=== PATIENT | female | born 1970 | race Two or more races ===

== ENCOUNTER → 2019-12-30 14:09 | Outpatient (BNVA) | payer MEDICAID, SELFPAY | PROVIDERS: PCP Family Medicine; Visit Provider Hospitalist | DX: J44.9 Chronic obstructive pulmonary disease, unspecified (principal); J96.10 Chronic respiratory failure, unspecified whether with hypoxia or hypercapnia; G47.33 Obstructive sleep apnea (adult) (pediatric); D80.1 Nonfamilial hypogammaglobulinemia; Z79.52 Long term (current) use of systemic steroids | CPT/HCPCS: 99214 ==

== ENCOUNTER → 2020-01-04 14:10 | Outpatient (BNVA) | payer MEDICAID, SELFPAY | PROVIDERS: PCP Family Medicine; Referring Provider Family Medicine; Visit Provider Hospitalist | DX: J44.1 Chronic obstructive pulmonary disease with (acute) exacerbation (principal); J96.11 Chronic respiratory failure with hypoxia; J96.12 Chronic respiratory failure with hypercapnia; D80.1 Nonfamilial hypogammaglobulinemia; R00.0 Tachycardia, unspecified; Z79.52 Long term (current) use of systemic steroids | CPT/HCPCS: 99215 ==

== ENCOUNTER 2020-01-05 08:12 | Outpatient (REF) | payer MEDICAID, SELFPAY ==
--- NOTE | 2020-01-05 | US_ITS ---
EXAMINATION: US COMPLETE ABDOMEN WITH LIVER ELASTOGRAPHY CLINICAL INFORMATION: Chronic hepatitis C. COMPARISON: None. TECHNIQUE: Real-time imaging of the abdominal viscera. Noninvasive ultrasound liver fibrosis assessment is performed using Laney ElastPQ point quantification shear wave elastography (pSWE) with a 5 MHz transducer. Multiple elastography samples are obtained. FINDINGS: PANCREAS: Partially visualized pancreatic head and the body appear homogeneous in echotexture. The tail is obscured by overlying gas. ABDOMINAL AORTA: The proximal and distal aortic segments are normal in caliber. INFERIOR VENA CAVA: Visualized portions are normal. LIVER: The liver demonstrates normal size, contour and increased echogenicity. No focal lesion or intrahepatic biliary duct dilatation. The right lobe measures 19.4 cm in length. The left lobe measures 12.1 cm in length. There is hepatopedal flow seen in the portal vein on Doppler exam. Echogenic areas seen in liver likely vascular calcification. Shear wave elastography provides a median stiffness of 1.33 m/s (reference: normal median stiffness is 0.81 - 1.22 m/s). The IQR/median stiffness to assess sampling precision is 0.30 (reference: optimal IQR/median stiffness is under 0.3). GALLBLADDER: There are no echogenic gallstones or wall thickening. Small echogenic areas seen along the inner gallbladder wall without shadowing suggestive of adenomyomatosis. COMMON BILE DUCT: Normal in caliber measuring 0.5 cm in diameter. RIGHT KIDNEY: Normal. No hydronephrosis. No renal calculi or focal parenchymal lesions. The kidney measures 12.1 cm in maximum dimension. LEFT KIDNEY: Normal. No hydronephrosis. No renal calculi or focal parenchymal lesions. The kidney measures 12.8 cm in maximum dimension. SPLEEN: Normal. The spleen measures 11.2 cm in maximum dimension. FREE FLUID: None. IMPRESSION: 1. Hepatic steatosis without focal lesion. No focal lesion seen. 2. Adenomyomatosis in the gallbladder. 3. Elastography: Normal to mild fibrosis
--- NOTE | 2020-01-05 09:04 | XR_ITS ---
EXAMINATION: XR CHEST CLINICAL INFORMATION: COPD COMPARISON: Chest radiographs 11/24/2019, 08/02/2019, 06/15/2019; CT chest 07/08/2019 TECHNIQUE: 2 views of the chest were obtained. FINDINGS: There is mild coarsening bronchiolar markings. There is no airspace consolidation or groundglass opacity. No hyperinflation. The costophrenic sulci are clear. The heart is normal in size. The hilar and mediastinal contours are normal. Again, there are multiple bilateral healed rib fractures. No significant changes from prior studies. IMPRESSION: No significant changes from prior studies.
--- NOTE | 2020-01-05 10:03 | ECG_ITS ---
Test Reason : SOB Blood Pressure : / mmHG Vent. Rate : 105 BPM Atrial Rate : 105 BPM P-R Int : 130 ms QRS Dur : 076 ms QT Int : 340 ms P-R-T Axes : 063 047 059 degrees QTc Int : 449 ms Sinus tachycardia RSR' or QR pattern in V1 suggests right ventricular conduction delay Borderline ECG When compared with ECG of 24-NOV-2019 21:46, No significant change was found Referred By: Allan Brito Electronically Signed By:BLANCO STUBBS MD
[2020-01-05 10:26] LABS: MANUAL DIFF FLAG NO
[2020-01-05 10:32] LABS: Basophils Absolute Auto 0.1 X10*3/uL (0.0-0.2); Basophils Percent Auto 0.4 % (0-2); Eosinophils Absolute Auto 0.1 X10*3/uL (0.0-0.4); Hematocrit 40.7 % (37-47); Hemoglobin 12.3 g/dl (12.0-16.0); Imm Gran Pct Auto 0.7 % (0.0-0.4); Lymphocytes Percent Auto 14.5 % (20-40); Mean Corpuscular HGB Conc 30.2 g/dl (31.0-35.0); Mean Corpuscular Hemoglobin 29.4 pg (27.0-33.0); Mean Corpuscular Volume 97.1 fL (80-98); Mean Platelet Volume 9.1 fL (9.4-12.3); Monocytes Absolute Auto 0.9 X10*3/uL (0.1-1.2); Monocytes Percent Auto 6.2 % (2-11); Neutrophils Absolute Auto 10.6 X10*3/uL (2.0-8.3); Neutrophils Percent Auto 77.2 % (45-73); Platelet Count 339 X10*3/uL (160-400); Red Blood Count 4.19 X10*6/uL (4.20-5.50); Red Cell Distribution Width 12.3 % (11.0-16.0); White Blood Count 13.7 X10*3/uL (4.8-10.8)
[2020-01-05 10:49] LABS: D Dimer < 200 NG/ML
[2020-01-05 11:17] LABS: Blood Urea Nitrogen 17 mg/dL (9-16); Calcium 9.8 mg/dL (8.4-10.2); Estimated Glomerular Filt Rate > 60; Glucose Random 93 mg/dL (60-115)
[2020-01-05 11:28] LABS: Anion Gap 12 (12-20); Chloride 90 mmol/L (96-108); Potassium 3.6 mmol/l (3.3-5.1); Sodium 139 mmol/L (135-145)
[2020-01-05 11:43] LABS: Erythrocyte Sedimentation Rate 26 MM/HR (0-20)
[2020-01-05 11:55] LABS: Carbon Dioxide 41 mmol/L (22-29)
[2020-01-06 07:54] LABS: Theophylline 4.3
[2020-01-06 19:12] LABS: Immunoglobulin G Subclass 1 440 mg/dL (382-929); Immunoglobulin G Subclass 2 97 mg/dL (241-700); Immunoglobulin G Subclass 3 81 mg/dL (22-178); Immunoglobulin G Subclass 4 9.6 mg/dL (4-86); Immunoglobulin G Total 652 mg/dL (600-1640)
[2020-01-07 01:51] LABS: IgA 189 mg/dL (47-310); IgG 637 mg/dL (600-1640); IgM 78 mg/dL (50-300)
[2020-01-07 06:26] LABS: Immunoglobulin E 15 kU/L (<OR=114)
== END 2020-01-05 08:13 | disposition home or self-care (01) ==
LOC: HO.US 08:12
PROVIDERS: Hospitalist; Visit Provider Family Medicine
DX: B18.2 Chronic viral hepatitis C (principal)
CPT/HCPCS: 36415; 71046; 76705; 76981; 80048; 80198; 82784; 82785; 85025; 85379; 85652; 93005

== ENCOUNTER 2020-02-22 14:04 | Outpatient (REF) | payer MEDICAID, SELFPAY ==
[2020-02-22 15:51] LABS: Basophils Absolute Auto 0.1 X10*3/uL (0.0-0.2); Basophils Percent Auto 0.3 % (0-2); Eosinophils Absolute Auto 0.1 X10*3/uL (0.0-0.4); Eosinophils Percent Auto 0.4 % (0-4); Imm Gran Abs Auto 0.09 X10*3/uL (0.00-0.03); Imm Gran Pct Auto 0.6 % (0.0-0.4); Lymphocytes Absolute Auto 0.7 X10*3/uL (1.2-4.9); Lymphocytes Percent Auto 4.9 % (20-40); MANUAL DIFF FLAG SCAN; Mean Platelet Volume 8.7 fL (9.4-12.3); Monocytes Absolute Auto 0.4 X10*3/uL (0.1-1.2); Monocytes Percent Auto 2.9 % (2-11); Neutrophils Absolute Auto 13.9 X10*3/uL (2.0-8.3); Neutrophils Percent Auto 90.9 % (45-73); Platelet Count 348 X10*3/uL (160-400); Red Blood Count 4.33 X10*6/uL (4.20-5.50); Red Cell Distribution Width 13.2 % (11.0-16.0); SCAN SMEAR FLAG 1; White Blood Count 15.2 X10*3/uL (4.8-10.8)
[2020-02-22 16:15] LABS: SLIDE REVIEW VERIFIED
[2020-02-22 16:48] LABS: Erythrocyte Sedimentation Rate 24 MM/HR (0-20)
[2020-02-23 07:31] LABS: SARS COV2 IgG Negative (Negative)
[2020-02-24 07:02] LABS: Immunoglobulin E 20 kU/L (<OR=114)
[2020-02-24 07:25] LABS: Theophylline 4.6
[2020-02-24 11:17] LABS: Immunoglobulin G Subclass 1 390 mg/dL (382-929); Immunoglobulin G Subclass 2 92 mg/dL (241-700); Immunoglobulin G Subclass 3 78 mg/dL (22-178); Immunoglobulin G Total 593 mg/dL (600-1640)
== END 2020-02-22 14:05 | disposition home or self-care (01) ==
LOC: HO.LAB 14:04
PROVIDERS: PCP Family Medicine; Visit Provider Hospitalist
DX: J44.9 Chronic obstructive pulmonary disease, unspecified (principal); D80.1 Nonfamilial hypogammaglobulinemia; J96.10 Chronic respiratory failure, unspecified whether with hypoxia or hypercapnia; F17.210 Nicotine dependence, cigarettes, uncomplicated; Z79.899 Other long term (current) drug therapy; Z79.52 Long term (current) use of systemic steroids
CPT/HCPCS: 36415; 80198; 82784; 82785; 85025; 85652; 86769; 99212

== ENCOUNTER 2020-03-13 10:01 | Outpatient (REF) | payer MEDICAID, SELFPAY ==
[2020-03-13 10:41] VITALS: O2SAT 93
[2020-03-13 10:50] LABS: Pt Ventilation O2% 2 L
[2020-03-13 10:55] LABS: Base Excess ABG 8.6; HCO3 ABG 37 mmol/l (22-26); PO2 ABG 91 mmhg (83-108); pH ABG 7.36 (7.35-7.45)
[2020-03-13 10:58] LABS: ABG PCO2 67 mmhg (32-45)
--- NOTE | 2020-03-13 17:22 | PFT_ITS ---
INDICATION: COPD. SPIROMETRY: The FEV1 to FVC 49% with an FEV1 of 0.68 L, which is 27% predicted, and an FVC of 1.4 L, which is 45% predicted. There was a significant response to bronchodilators noted. There is also very severe decrease in maximum voluntary ventilation secondary to the patient's deconditioning and also worsening dynamic inspiratory capacity. LUNG VOLUMES: With significant air trapping due to the COPD, decrease in the expiratory reserve volume secondary to an elevated BMI. The patient has a moderate diffusion impairment. COMPARISONS: Not available at this time. INTERPRETATION: There is obstructive ventilatory defect consistent with very severe COPD. The patient does have a significant response to bronchodilators noted and has severe decrease in the maximum voluntary ventilation. Lung volumes again significant for air trapping due to the COPD and a moderate diffusion impairment secondary to underlying parenchymal lung disease and/or pulmonary vascular conditions. Clinical correlation warranted. Allan Brito MD MR/MODL / [id number]
== END 2020-03-13 10:02 | disposition home or self-care (01) ==
LOC: HO.RESP 10:01
PROVIDERS: PCP Family Medicine; Visit Provider Hospitalist
DX: J96.10 Chronic respiratory failure, unspecified whether with hypoxia or hypercapnia (principal)
CPT/HCPCS: 36600; 82803; 94060; 94727; 94729

== ENCOUNTER → 2020-05-09 10:23 | Outpatient (BNVA) | payer MEDICAID, SELFPAY | PROVIDERS: PCP Family Medicine; Visit Provider Hospitalist ==

== ENCOUNTER → 2020-05-29 13:11 | Outpatient (BNVA) | payer MEDICAID, SELFPAY | PROVIDERS: PCP Family Medicine; Visit Provider Nurse Practitioner Family ==

== ENCOUNTER 2020-06-01 08:59 | Outpatient (REF) | payer MEDICAID, SELFPAY | END 2020-06-01 09:00 | disposition home or self-care (01) | LOC: HO.MDS 08:59 | PROVIDERS: Visit Provider Emergency Medicine | DX: D80.1 Nonfamilial hypogammaglobulinemia (principal); B18.2 Chronic viral hepatitis C | CPT/HCPCS: 96365; 96366 ==

== ENCOUNTER → 2020-06-19 14:05 | Outpatient (BNVA) | payer MEDICAID, SELFPAY | PROVIDERS: Visit Provider Nurse Practitioner Family ==

== ENCOUNTER → 2020-06-21 10:03 | Outpatient (BNVA) | payer MEDICAID, SELFPAY | PROVIDERS: PCP Family Medicine; Visit Provider Internal Medicine ==

== ENCOUNTER → 2020-06-23 10:30 | Outpatient (BNVA) | payer MEDICAID, SELFPAY | PROVIDERS: PCP Family Medicine; Visit Provider Hospitalist ==

== ENCOUNTER 2020-06-29 09:16 | Outpatient (REF) | payer MEDICAID, SELFPAY | END 2020-06-29 09:17 | disposition home or self-care (01) | LOC: HO.MDS 09:16 | PROVIDERS: Visit Provider Hospitalist | DX: D80.1 Nonfamilial hypogammaglobulinemia (principal) | CPT/HCPCS: 96365; 96366; J1572 ==

== ENCOUNTER 2020-07-05 07:55 | Outpatient (REF) | payer MEDICAID, SELFPAY | END 2020-07-05 07:56 | disposition home or self-care (01) | LOC: CF 07:55 | PROVIDERS: PCP Family Medicine; Visit Provider Internal Medicine | DX: Z01.810 Encounter for preprocedural cardiovascular examination (principal); R06.02 Shortness of breath; R07.2 Precordial pain; J44.9 Chronic obstructive pulmonary disease, unspecified; E11.8 Type 2 diabetes mellitus with unspecified complications; I10 Essential (primary) hypertension; E78.5 Hyperlipidemia, unspecified | CPT/HCPCS: 93005; 99202 ==

== ENCOUNTER 2020-07-06 09:58 | Outpatient (REF) | payer MEDICAID, SELFPAY ==
--- NOTE | 2020-07-06 10:00 | EMG_ITS ---
Right median and ulnar motor and sensory studies were performed. Right radial sensory study was performed and paraspinal muscles were tested with a needle. IMPRESSION: 1. 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 2. Underlying axonal sensory motor peripheral neuropathy. MD DAVID Lizama/CELESTE / [id number]
== END 2020-07-06 09:59 | disposition home or self-care (01) ==
LOC: HO.NEURO 09:58
PROVIDERS: PCP Family Medicine; Visit Provider Family Medicine
DX: M25.531 Pain in right wrist (principal); M25.532 Pain in left wrist; R20.0 Anesthesia of skin
CPT/HCPCS: 95886; 95909

== ENCOUNTER 2020-07-10 09:26 | Outpatient (REF) | payer MEDICAID, SELFPAY ==
--- NOTE | ~2020-07-10 | US_ITS ---
EXAMINATION: US COMPLETE ABDOMEN WITH LIVER ELASTOGRAPHY CLINICAL INFORMATION: Chronic viral hepatitis C. COMPARISON: 01/05/[address] abdomen 07/08/2019. TECHNIQUE: Real-time imaging of the abdominal viscera. Noninvasive ultrasound liver fibrosis assessment is performed using Laney ElastPQ point quantification shear wave elastography (pSWE) with a C5-2 MHz transducer. Multiple elastography samples are obtained. FINDINGS: PANCREAS: Obscured by bowel gas. ABDOMINAL AORTA: The visualized proximal, middle, and distal aortic segments are normal in caliber. INFERIOR VENA CAVA: Visualized portions are normal. LIVER: Diffuse increased hepatic parenchymal echogenicity. No focal lesion or intrahepatic biliary duct dilatation. The right lobe measures 19.8 cm in length. The left lobe measures 13.5 cm in length. Portal flow is hepatopedal Shear wave liver elastography median stiffness is 0.89 m/s (reference: normal median stiffness is 1.3 m/s or less). IQR/median stiffness to assess sampling precision is 0.3 (reference: good quality data set is IQR/median stiffness of 0.15 or less). GALLBLADDER: Ringdown artifact in the fundus suggesting adenomyomatosis. No calculi. No wall thickening or pericholecystic fluid. COMMON BILE DUCT: Normal in caliber measuring 0.4 cm in diameter. RIGHT KIDNEY: Normal. No hydronephrosis. No renal calculi or focal parenchymal lesions. The kidney measures 13 cm in maximum dimension. LEFT KIDNEY: Normal. No hydronephrosis. No renal calculi or focal parenchymal lesions. The kidney measures 13.5 cm in maximum dimension. SPLEEN: Normal. The spleen measures 10.2 cm in maximum dimension. FREE FLUID: None. US/US abdomen comp w elastography IMPRESSION: 1. Hepatomegaly. Increased hepatic parenchymal echogenicity, correlating with the clinical history of chronic viral hepatitis. No focal lesions demonstrated. 2. Liver elastography: Liver stiffness measuring 0.89 m/s, suggesting high probability of being normal as per the guidelines. Of note, the sampling precision is 0.3, suboptimal. Short-term follow-up ultrasound for reassessment as clinically warranted. 3. Pancreas obscured by bowel gas. 4. Findings suggest adenomyomatosis in the gallbladder fundus. REFERENCE: Society of Radiologists in Ultrasound Liver Stiffness Thresholds (2019): LIVER STIFFNESS THRESHOLDS: *Liver Stiffness equal or less than 1.3 m/s: High probability of being normal. *Liver Stiffness less than 1.7 m/s: In the absence of other known clinical signs, rules out compensated advanced chronic liver disease. *Liver Stiffness 1.7-2.1 m/s: Suggestive of compensated advanced chronic liver disease but need further test for confirmation. *Liver Stiffness over 2.1 m/s: Rules in compensated advanced chronic liver disease. *Liver Stiffness over 2.4 m/s: Suggestive of clinically significant portal hypertension. QUALITY OF DATA SET: *IQR/Median value equal or less than 0.15 implies a quality data set. *IQR/Median value over 0.15 implies a poor quality data set. SIGNIFICANT CHANGE FROM PRIOR EXAM: Significant change if liver stiffness measurement is 10% or greater from prior exam. OTHER CONSIDERATIONS: The stage of liver fibrosis may be overestimated in the setting of acute hepatitis, liver inflammation, elevated liver function tests, hepatic vascular congestion, obstructive cholestasis, non-fasting state, and infiltrative diseases such as amyloidosis and lymphoma. In some patients with NAFLD, the liver stiffness thresholds for compensated advanced chronic liver disease may be lower. In causes other than viral hepatitis and NAFLD, liver stiffness thresholds are not well established.
== END 2020-07-10 09:27 | disposition home or self-care (01) ==
LOC: HO.US 09:26
PROVIDERS: Visit Provider Emergency Medicine
DX: B18.2 Chronic viral hepatitis C (principal)
CPT/HCPCS: 76705; 76981

== ENCOUNTER 2020-07-20 12:54 | Outpatient (REF) | payer MEDICAID, SELFPAY ==
[2020-07-20 15:17] LABS: Basophils Percent Auto 0.2 % (0-2); Hematocrit 44.3 % (37-47); Hemoglobin 13.3 g/dl (12.0-16.0); Imm Gran Pct Auto 0.6 % (0.0-0.4); Lymphocytes Absolute Auto 0.9 X10*3/uL (1.2-4.9); Lymphocytes Percent Auto 5.3 % (20-40); MANUAL DIFF FLAG SCAN; Mean Corpuscular Hemoglobin 29.8 pg (27.0-33.0); Mean Corpuscular Volume 99.3 fL (80-98); Mean Platelet Volume 9.4 fL (9.4-12.3); Monocytes Absolute Auto 0.4 X10*3/uL (0.1-1.2); Monocytes Percent Auto 2.7 % (2-11); Neutrophils Absolute Auto 14.7 X10*3/uL (2.0-8.3); Neutrophils Percent Auto 91.2 % (45-73); Platelet Count 311 X10*3/uL (160-400); Red Blood Count 4.46 X10*6/uL (4.20-5.50); Red Cell Distribution Width 12.6 % (11.0-16.0); SCAN SMEAR FLAG 1; White Blood Count 16.1 X10*3/uL (4.8-10.8)
[2020-07-20 15:27] LABS: Alanine Aminotransferase 40 U/L (0-31); Albumin Level 3.9 g/dL (3.5-5.0); Alkaline Phosphatase 60 U/L (39-117); Anion Gap 16 (12-20); Aspartate Amino Transferase 27 U/L (5-31); Bilirubin Total 0.4 mg/dL (0.0-1.0); Blood Urea Nitrogen 17 mg/dL (9-16); Calcium 10.2 mg/dL (8.4-10.2); Carbon Dioxide 39 mmol/L (22-29); Chloride 90 mmol/L (96-108); Estimated Glomerular Filt Rate > 60; Glucose Random 115 mg/dL (60-115); Sodium 140 mmol/L (135-145); Total Protein 6.8 g/dL (6.5-8.0)
[2020-07-20 15:40] LABS: SLIDE REVIEW VERIFIED
[2020-07-20 16:06] LABS: Erythrocyte Sedimentation Rate 21 MM/HR (0-20)
[2020-07-21 06:32] LABS: Immunoglobulin E 16 kU/L (<OR=114)
[2020-07-21 07:02] LABS: Theophylline 11.2
[2020-07-21 15:57] LABS: Immunoglobulin G Subclass 1 517 mg/dL (382-929); Immunoglobulin G Subclass 2 199 mg/dL (241-700); Immunoglobulin G Subclass 3 96 mg/dL (22-178); Immunoglobulin G Subclass 4 16.2 mg/dL (4-86); Immunoglobulin G Total 809 mg/dL (600-1640)
== END 2020-07-20 12:55 | disposition home or self-care (01) ==
LOC: HO.LAB 12:54
PROVIDERS: Hospitalist; Visit Provider Nurse Practitioner Family
DX: K59.00 Constipation, unspecified (principal); D80.1 Nonfamilial hypogammaglobulinemia; J44.9 Chronic obstructive pulmonary disease, unspecified; F17.210 Nicotine dependence, cigarettes, uncomplicated; Z99.81 Dependence on supplemental oxygen; Z80.0 Family history of malignant neoplasm of digestive organs; Z12.11 Encounter for screening for malignant neoplasm of colon
CPT/HCPCS: 36415; 80053; 80198; 82784; 82785; 85025; 85652; 99212

== ENCOUNTER 2020-07-27 09:26 | Outpatient (REF) | payer MEDICAID, SELFPAY | END 2020-07-27 09:27 | disposition home or self-care (01) | LOC: HO.MDS 09:26 | PROVIDERS: Visit Provider Hospitalist | DX: D80.1 Nonfamilial hypogammaglobulinemia (principal) | CPT/HCPCS: 96365; 96366; J1569 ==

== ENCOUNTER 2020-08-04 | Outpatient (REF) | payer MEDICAID, SELFPAY ==
[2020-08-07 12:52] LABS: FIT Int Ctl YES; FIT1 NEGATIVE (NEGATIVE); FIT2 NEGATIVE (NEGATIVE)
== END 2020-08-04 00:01 | disposition home or self-care (01) ==
LOC: HO.LNP
PROVIDERS: Visit Provider Nurse Practitioner Family
DX: Z80.0 Family history of malignant neoplasm of digestive organs (principal)
CPT/HCPCS: 82274

== ENCOUNTER → 2020-08-04 13:07 | Outpatient (BNVA) | payer MEDICAID, SELFPAY | PROVIDERS: PCP Family Medicine; Visit Provider Hospitalist ==

== ENCOUNTER 2020-08-09 10:13 | Outpatient (REF) | payer MEDICAID, SELFPAY | END 2020-08-09 10:14 | disposition home or self-care (01) | LOC: HO.LNP 10:13 | PROVIDERS: Visit Provider Hospitalist | DX: J44.9 Chronic obstructive pulmonary disease, unspecified (principal) | CPT/HCPCS: 87070; 87205 ==

== ENCOUNTER → 2020-08-21 09:47 | Outpatient (REF) | payer MEDICAID, SELFPAY ==
--- NOTE | 2020-08-21 09:50 | CA_ITS ---
Transthoracic Echocardiogram Patient (Last, First, Middle): Anju Tanner I Gender: Female Date of : 1970 Age: 50 Procedure Date: 08/21/2020 Procedure Type: Transthoracic Echocardiogram Location: OP Height: 154.94 cm Weight: 97.52 kg BSA: 1.95 m2 Heart Rate: bpm BP: 140 / 86 mmHg Molder Operator: LINH Referring MD: Royce Molina MD Forest Economist: Keyur Vivas MD Symptoms: R06.02 - Shortness of breath Study Quality: Technically Difficult ECG Rhythm: Sinus Conclusions: - Essentially normal study Findings Left Ventricle Normal left ventricular cavity size. The left ventricular systolic function is normal. The visually estimated ejection fraction is between 60-65%. Regional wall motion abnormalities can not be excluded due to suboptimal endocardial definition. Spectral Doppler is indicative of a normal filling pattern. Right Ventricle Normal right ventricular cavity size and systolic function. Atria The left atrium is normal in size. There is lipomatous hypertrophy of the interatrial septum. There is no evidence of interatrial shunt. The right atrium is normal in size. Aortic Valve The aortic valve was not well visualized. There is no aortic valve stenosis. There is no aortic valve regurgitation. Mitral Valve Likely normal mitral valve structure and function. There is trace mitral valve regurgitation. There is no mitral valve stenosis. Pulmonic Valve The pulmonic valve was not well visualized. Tricuspid Valve Likely normal tricuspid valve structure and function. There is mild tricuspid valve regurgitation. The right ventricular systolic pressure is normal. The right ventricular systolic pressure is 36 mmHg. Great Vessels The aorta was not well visualized. The pulmonary artery was not well visualized. Venous The inferior vena cava is normal in size and collapses greater than 50% with inspiration. Pericardium/Pleural There is no evidence of pericardial effusion. Prior Study Comparison No significant change compared to prior study dated: 03/22/2019. Recommendations, Care & Conclusions Recommend contrast in the future to improve endocardial definition. Measurements 2D Linear Measurements Ao Root: 2.30 2.1-3.5 cm LVOT Diam: 2.00 3.0+(-)1.3 cm Mitral Valve MV Pk E: 0.89 MV PK A: 0.87 MV Decel Time: 166.00 E/A: 1.00 E'Lateral: 12.00 E'Medial: 8.49 E/E' Med: 10.50 E/E' Lat: 7.40 PHT: 49.00 MVA PHT: 4.49 Decel [place]: 5.38 Aortic Valve AoV Pk Andrea: 1.71 AoV Mn Andrea: 0.95 AoV VTI: 0.34 AoV Pk Grad: 12.00 Aov Mn Grad: 5.00 TASNEEM Cont.VTI: 2.15 LVOT LVOT Pk Andrea: 1.21 LVOT Mn Andrea: 0.79 LVOT VTI: 0.23 LVOT Pk Grad: 6.00 LVOT Mn Grad: 3.00 LVOT Diam: 2.00 LVOT Area: 3.14 Diastolic Function MV Pk E: 0.89 MV Pk A: 0.87 E/A: 1.00 E'Medial: 8.49 E/E' Med: 10.50 E' Laterial: 12.00 E/E' Lat: 7.40 Tricuspid Valve TR Pk Andrea: 2.87 TR Pk Grad: 33.00 RA Press: 3.00 RVSP: 36.00 Great Vessels Aorta Ao Root-2D: 2.30 2.0-3.7 cm Pulmonary Valve PV Pk Andrea: 1.33 Peak PV Grad: 7.00 Updated in Other Vendor System with Status of Final Keyur Vivas MD electronically signed on 08/21/2020 5:48:21 PM with status of Final
== END ==
LOC: HO.CARD 09:47
PROVIDERS: Visit Provider Internal Medicine
DX: R06.02 Shortness of breath (principal)
CPT/HCPCS: 93306

== ENCOUNTER 2020-08-30 11:04 | Outpatient (REF) | payer MEDICAID, SELFPAY | END 2020-08-30 11:05 | disposition home or self-care (01) | LOC: HO.MDS 11:04 | PROVIDERS: Visit Provider Hospitalist | DX: D80.1 Nonfamilial hypogammaglobulinemia (principal) | CPT/HCPCS: 96365; 96366; J1569 ==

== ENCOUNTER → 2020-09-20 11:36 | Outpatient (BNVA) | payer MEDICAID, SELFPAY | PROVIDERS: Visit Provider Hospitalist | DX: J44.1 Chronic obstructive pulmonary disease with (acute) exacerbation (principal); J44.9 Chronic obstructive pulmonary disease, unspecified; J96.10 Chronic respiratory failure, unspecified whether with hypoxia or hypercapnia; D80.1 Nonfamilial hypogammaglobulinemia; E11.9 Type 2 diabetes mellitus without complications; I10 Essential (primary) hypertension; E78.5 Hyperlipidemia, unspecified; F17.210 Nicotine dependence, cigarettes, uncomplicated; Z79.52 Long term (current) use of systemic steroids; Z79.84 Long term (current) use of oral hypoglycemic drugs; Z79.899 Other long term (current) drug therapy | CPT/HCPCS: 96372; 99212; J2930 ==

== ENCOUNTER 2020-10-05 09:55 | Outpatient (REF) | payer MEDICAID, SELFPAY | END 2020-10-05 09:56 | disposition home or self-care (01) | LOC: HO.MDS 09:55 | PROVIDERS: Visit Provider Hospitalist | DX: D80.1 Nonfamilial hypogammaglobulinemia (principal) | CPT/HCPCS: 96365; 96366; J1569 ==

== ENCOUNTER 2020-10-13 19:33 | Inpatient (IN) | payer MEDICAID, SELFPAY ==
--- NOTE | ~2020-10-13 | XR_ITS ---
EXAMINATION: XR CHEST CLINICAL INFORMATION: Chest pain. COMPARISON: Chest done on 01/05/2020. TECHNIQUE: Frontal view of the chest was obtained. FINDINGS: Multiple bilateral healing rib fractures are reidentified. Both lung matthews appear symmetrically expanded and are clear. The cardiac mediastinal silhouette is within normal limit. No evidence of any pleural effusion or pneumothorax. The visualized upper abdomen is unremarkable. Overall, no significant change since 01/05/2020 XR/XR chest 1V IMPRESSION: No radiographic evidence of acute cardiopulmonary disease, appear unchanged since 01/05/2020.
--- NOTE | ~2020-10-13 | CT_ITS ---
EXAMINATION: CT ANGIOGRAM OF THE CHEST WITH AND WITHOUT CONTRAST (CT PULMONARY ANGIOGRAM FOR PE) CLINICAL INFORMATION: Reason for Exam Shortness of breath, chest pain COMPARISON: 07/08/2019 TECHNIQUE: Prior to contrast administration, noncontrast localization images were obtained. Subsequently, multidetector volumetric imaging was performed from the thoracic inlet to below the diaphragms following the administration of 80 mL Omnipaque 350 intravenous contrast. No contrast reaction reported Sagittal, coronal, and MIP oblique sagittal reformatted images were obtained on the CT workstation, uploaded to PACS, and reviewed. This CT examination was performed using dose optimization techniques as appropriate, variously including the following: *Automated exposure control *Adjustment of mA and/or kV according to patient size (this includes techniques or standardized protocols for targeted exams where dose is matched to indication/reason for exam; i.e. extremities or head) *Use of iterative reconstruction technique Total exam dose-length product 565 mGy-cm FINDINGS: QUALITY OF STUDY/CONTRAST BOLUS: Satisfactory. PULMONARY ARTERIES: No central or segmental pulmonary emboli. THORACIC AORTA: No aneurysm or dissection. LUNG: No parenchymal consolidation, pneumonitis or pneumothorax. Mild upper lobe predominant centrilobular emphysema. Mild diffuse bronchial wall thickening without bronchiectasis. There are a few scattered pneumatoceles, postinfectious/inflammatory in nature. No suspicious pulmonary nodules. PLEURA: No pleural effusion or pneumothorax. MEDIASTINUM: Normal heart size. No pericardial effusion. No hilar or mediastinal lymphadenopathy. No evidence of septal bowing or right heart strain. No reflux of contrast into the hepatic veins to suggest elevated right heart pressures. CHEST WALL/AXILLA: No axillary or internal mammary lymphadenopathy. OSSEOUS STRUCTURES: No acute or suspicious osseous abnormality. UPPER ABDOMEN: Healed bilateral rib fractures. No acute or suspicious osseous abnormalities. CT/CT angio chest PE protocol IMPRESSION: * No pulmonary embolism. * No aortic aneurysm or dissection. * No pneumonitis, parenchymal consolidation or pneumothorax. * Mild emphysema and chronic bronchitis. VTE: negative
[2020-10-13 19:41] VITALS: BP 137/70; PULSE 94; RESP 16; TEMP 37.1; O2SAT 95; BMI 40.0
--- NOTE | 2020-10-13 19:48 | ECG_ITS ---
Test Reason : CHEST PAIN Blood Pressure : / mmHG Vent. Rate : 084 BPM Atrial Rate : 084 BPM P-R Int : 136 ms QRS Dur : 074 ms QT Int : 372 ms P-R-T Axes : 063 041 046 degrees QTc Int : 439 ms Normal sinus rhythm Normal ECG When compared with ECG of 05-JAN-2020 10:16, No significant change was found Referred By: Generic ED Physician Electronically Signed By:RONALD SCHAFER
[2020-10-13 20:07] LABS: MANUAL DIFF FLAG NO
[2020-10-13 20:09] LABS: Basophils Percent Auto 0.2 % (0-2); Eosinophils Percent Auto 0.1 % (0-4); Hematocrit 39.7 % (37-47); Hemoglobin 12.3 g/dl (12.0-16.0); Imm Gran Abs Auto 0.08 X10*3/uL (0.00-0.03); Imm Gran Pct Auto 0.6 % (0.0-0.4); Lymphocytes Absolute Auto 1.1 X10*3/uL (1.2-4.9); Lymphocytes Percent Auto 8.2 % (20-40); Mean Corpuscular Hemoglobin 30.3 pg (27.0-33.0); Mean Corpuscular Volume 97.8 fL (80-98); Monocytes Absolute Auto 0.6 X10*3/uL (0.1-1.2); Monocytes Percent Auto 4.6 % (2-11); Neutrophils Absolute Auto 11.6 X10*3/uL (2.0-8.3); Neutrophils Percent Auto 86.3 % (45-73); Platelet Count 291 X10*3/uL (160-400); Red Blood Count 4.06 X10*6/uL (4.20-5.50); Red Cell Distribution Width 13.2 % (11.0-16.0); White Blood Count 13.5 X10*3/uL (4.8-10.8)
[2020-10-13 20:42] LABS: Anion Gap 16 (12-20); Blood Urea Nitrogen 16 mg/dL (9-16); Calcium 10.1 mg/dL (8.4-10.2); Carbon Dioxide 39 mmol/L (22-29); Chloride 93 mmol/L (96-108); Creatinine Clr Calc Pharmacy 96.4; Estimated Glomerular Filt Rate > 60; Glucose Random 249 mg/dL (60-115); Potassium 4.7 mmol/L (3.3-5.1); Sodium 143 mmol/L (135-145)
[2020-10-13 20:44] LABS: Troponin-I High Sensitivity 6.5 ng/L (<3.5-17.0)
[2020-10-13 20:57] LABS: COVID-19 Test Negative (Negative)
--- NOTE | 2020-10-13 21:25 | ED.CHESTPAIN ---
HPI - Chest Pain General Chief Complaint: Chest Pain Stated Complaint: cpd sob Time Seen by Provider: 10/13/20 21:25 Source: patient Mode of arrival: ambulatory History of Present Illness HPI narrative: 50-year-old female who presents with shortness of breath for 3 days has a history of COPD on home oxygen and states that she has also experienced some chest discomfort especially with both inspiratory and expiratory breathing, otherwise denies dizziness/headache/nausea/diaphoresis and patient also endorses that on pushing on the left anterior chest that this also increases her pain. Otherwise, she denies any fever, chills and states she has a cough at baseline but denies any increase in sputum production, denies any GI or symptoms. Related Data Home Medications Medication Instructions Recorded Confirmed albuterol sulfate 90 mcg/actuation 2 puff INHALATION Q6H PRN 12/30/19 09/20/20 aerosol inhaler (ProAir HFA) clonazepam 1 mg tablet 1 mg PO BID 12/30/19 09/20/20 diltiazem HCl 300 mg capsule,24 300 mg PO DAILY 12/30/19 09/20/20 hr,extended release lamotrigine 150 mg tablet 75 mg PO BID 12/30/19 09/20/20 (Lamictal) lisinopril 40 mg tablet 40 mg PO DAILY 12/30/19 09/20/20 loratadine 10 mg tablet (Claritin) 10 mg PO DAILY 12/30/19 09/20/20 metformin 500 mg tablet 500 mg PO BID 12/30/19 09/20/20 methadone 10 mg tablet 10 mg PO DAILY 12/30/19 09/20/20 montelukast 10 mg tablet 10 mg PO DAILY 12/30/19 09/20/20 pantoprazole 40 mg tablet,delayed 40 mg PO DAILY 12/30/19 09/20/20 release roflumilast 500 mcg tablet 500 mcg PO DAILY 12/30/19 09/20/20 (Daliresp) zolpidem 10 mg tablet (Ambien) 10 mg PO BEDTIME PRN 12/30/19 09/20/20 Previous Rx's Medication Instructions Recorded ipratropium 0.5 mg-albuterol 3 mg 3 ml INHALATION Q4H PRN #540 ml 02/29/20 (2.5 mg base)/3 mL nebulization soln dextromethorphan 5 mg-guaifenesin 20 ml PO Q4-6H PRN 14 Days #300 ml 03/20/20 50 mg/5 mL oral liquid (Robitussin Cough-Chest Congestion DM) tiotropium bromide 18 mcg capsule 1 cap INHALATION DAILY #30 inh 05/11/20 with inhalation device (Spiriva with HandiHaler) docusate sodium 100 mg capsule 100 mg PO DAILY #30 cap 05/29/20 methylcellulose (laxative) 500 mg 500 mg PO DAILY #30 tab 05/29/20 tablet (Citrucel) prednisone 10 mg tablet 10 mg PO BID 30 Days #60 tab 06/14/20 immune glob,gamma(IgG) 10 40 g IV Q4W #2 ea 06/16/20 ciwd-dia-tyhs-IgA 0 to 50 mcg/mL IV solution sennosides 8.6 mg tablet (Natural 8.6 mg PO BEDTIME PRN #30 tab 06/19/20 Senna Laxative) doxycycline hyclate 100 mg capsule 100 mg PO BID 14 Days #28 cap 06/23/20 amoxicillin 875 mg-potassium 1 tab PO BID 10 Days #20 tab 07/21/20 clavulanate 125 mg tablet (Augmentin) levofloxacin 500 mg tablet 500 mg PO DAILY 10 Days #10 tab 08/04/20 amoxicillin 875 mg-potassium 1 tab PO BID 21 Days #42 tab 09/20/20 clavulanate 125 mg tablet (Augmentin) arformoterol 15 mcg/2 mL solution 2 ml INHALATION Q12H 30 Days #120 09/20/20 for nebulization (Brovana) ml budesonide 0.5 mg/2 mL suspension 0.5 mg INHALATION BID #120 ml 09/20/20 for nebulization Allergies Allergy/AdvReac Type Severity Reaction Status Date / Time No Known Allergies Allergy Verified 09/20/20 11:41 [No Known Allergies*] Review of Systems Review of Systems: Pertinent positives and negatives as stated in HPI 10 point review of systems is otherwise negative. [facility] Past Medical History Source: nursing notes reviewed Medical History Asthma-COPD overlap syndrome Chronic respiratory failure COPD exacerbation Essential hypertension Hyperlipidemia, unspecified Hypogammaglobulinemia Tachycardia Tobacco dependence Type 2 diabetes mellitus with unspecified complications Surgical History H/O tubal ligation Family History Family History Father Diabetes Other Asthma Social History Social History Household Members: Significant Other Alcohol intake: never Years Smoked: 20 years Advance Directives: No Advance Directives Information Provided: Yes Patient : No Current occupational status: disabled Physical Exam Vital Signs: Vital Signs: Last Vital Signs Temp 98.8 F 10/13/20 19:41 Pulse 86 10/13/20 22:26 Resp 16 10/13/20 19:41 BP 137/70 10/13/20 19:41 Pulse Ox 95 10/13/20 19:41 Oxygen Flow Rate 2 10/13/20 19:41 Body Mass Index 40.0 VITAL SIGNS: Reviewed. GENERAL: Obese, chronically ill, mild distress. HEAD: Normocephalic/atraumatic EYES: PERRLA, EOMI OROPHARYNX: no oral lesions noted, posterior pharynx clear NECK: Supple, no adenopathy LUNGS: Decreased breath sounds bilaterally with noted coarse rhonchi and expiratory wheeze SpO2<95> on home oxygen nasal cannula CARDIOVASCULAR: Regular rate and rhythm without noted murmurs, no JVD or lower extremity edema. ABDOMEN: Obese, Soft, non-tender, non-distended with bowel sounds. MUSCULOSKELETAL: No tenderness, deformities, or effusions noted on gross inspection. EXTREMITIES: No cyanosis, clubbing or edema. SKIN: Inspection of the skin reveals no rashes NEUROLOGIC: Alert and oriented x 4. Strength and sensation to light touch were grossly intact x 4. Course Course Course Narrative: 2247: 50-year-old female with history and clinical presentation suggestive of COPD exacerbation with expiratory wheeze. Patient will receive nebulized treatments, steroids, lactic acid, blood cultures, antibiotics. On re-evaluation review of remaining investigations patient is began to feel better, oxygenation has improved, and this case was discussed with inpatient hospitalist for admission. MDM - Chest Pain Lab Data Result diagrams: 10/13/20 20:03 10/13/20 20:03 Labs: Lab Results 10/13/20 10/13/20 10/13/20 Range/Units 20:03 20:03 20:03 WBC 13.5 H (4.8-10.8) X10*3/uL RBC 4.06 L (4.20-5.50) X10*6/uL Hgb 12.3 (12.0-16.0) g/dl Hct 39.7 (37-47) % MCV 97.8 (80-98) fL MCH 30.3 (27.0-33.0) pg MCHC 31.0 (31.0-35.0) g/dl RDW 13.2 (11.0-16.0) % Plt Count 291 (160-400) X10*3/uL MPV 9.0 L (9.4-12.3) fL Immature Gran % (Auto) 0.6 H (0.0-0.4) % Neut % (Auto) 86.3 H (45-73) % Lymph % (Auto) 8.2 L (20-40) % Phillips % (Auto) 4.6 (2-11) % Eos % (Auto) 0.1 (0-4) % Baso % (Auto) 0.2 (0-2) % Lymph # (Auto) 1.1 L (1.2-4.9) X10*3/uL Phillips # (Auto) 0.6 (0.1-1.2) X10*3/uL Eos # (Auto) 0.0 (0.0-0.4) X10*3/uL Baso # (Auto) 0.0 (0.0-0.2) X10*3/uL Abs Immat Gran (auto) 0.08 H (0.00-0.03) X10*3/uL Absolute Neuts (auto) 11.6 H (2.0-8.3) X10*3/uL Absolute Nucleated RBC 0.000 (0.0-0.012) X10*3/uL Nucleated RBC % (auto) 0.0 (0.0-0.2) /100WBC VBG pH (7.32-7.43) VBG pCO2 mmHg VBG pO2 mmHg VBG HCO3 (22-26) mmol/L VBG O2 Saturation % VBG Base Excess mmol/L Sodium 143 (135-145) mmol/L Potassium 4.7 (3.3-5.1) mmol/L Chloride 93 L (96-108) mmol/L Carbon Dioxide 39 H (22-29) mmol/L Anion Gap 16 (12-20) BUN 16 (9-16) mg/dL Creatinine 0.74 (0.5-1.4) mg/dL Estim Creat Clear Calc 96.4 Estimated GFR > 60 POC Glucose (60-115) mg/dL Random Glucose 249 H D (60-115) mg/dL Calcium 10.1 (8.4-10.2) mg/dL Troponin I High Sens 6.5 (<3.5-17.0) ng/L COVID-19 ([facility]) (Negative) COVID-19 Clin Com 10/13/20 10/13/20 10/13/20 Range/Units 20:38 22:46 22:47 WBC (4.8-10.8) X10*3/uL RBC (4.20-5.50) X10*6/uL Hgb (12.0-16.0) g/dl Hct (37-47) % MCV (80-98) fL MCH (27.0-33.0) pg MCHC (31.0-35.0) g/dl RDW (11.0-16.0) % Plt Count (160-400) X10*3/uL MPV (9.4-12.3) fL Immature Gran % (Auto) (0.0-0.4) % Neut % (Auto) (45-73) % Lymph % (Auto) (20-40) % Phillips % (Auto) (2-11) % Eos % (Auto) (0-4) % Baso % (Auto) (0-2) % Lymph # (Auto) (1.2-4.9) X10*3/uL Phillips # (Auto) (0.1-1.2) X10*3/uL Eos # (Auto) (0.0-0.4) X10*3/uL Baso # (Auto) (0.0-0.2) X10*3/uL Abs Immat Gran (auto) (0.00-0.03) X10*3/uL Absolute Neuts (auto) (2.0-8.3) X10*3/uL Absolute Nucleated RBC (0.0-0.012) X10*3/uL Nucleated RBC % (auto) (0.0-0.2) /100WBC VBG pH 7.33 (7.32-7.43) VBG pCO2 103 mmHg VBG pO2 73 mmHg VBG HCO3 55 H (22-26) mmol/L VBG O2 Saturation 92.0 % VBG Base Excess 22.6 mmol/L Sodium (135-145) mmol/L Potassium (3.3-5.1) mmol/L Chloride (96-108) mmol/L Carbon Dioxide (22-29) mmol/L Anion Gap (12-20) BUN (9-16) mg/dL Creatinine (0.5-1.4) mg/dL Estim Creat Clear Calc Estimated GFR POC Glucose (60-115) mg/dL Random Glucose (60-115) mg/dL Calcium (8.4-10.2) mg/dL Troponin I High Sens 7.1 (<3.5-17.0) ng/L COVID-19 ([facility]) Negative (Negative) COVID-19 Clin Com See Note 10/13/20 Range/Units 23:16 WBC (4.8-10.8) X10*3/uL RBC (4.20-5.50) X10*6/uL Hgb (12.0-16.0) g/dl Hct (37-47) % MCV (80-98) fL MCH (27.0-33.0) pg MCHC (31.0-35.0) g/dl RDW (11.0-16.0) % Plt Count (160-400) X10*3/uL MPV (9.4-12.3) fL Immature Gran % (Auto) (0.0-0.4) % Neut % (Auto) (45-73) % Lymph % (Auto) (20-40) % Phillips % (Auto) (2-11) % Eos % (Auto) (0-4) % Baso % (Auto) (0-2) % Lymph # (Auto) (1.2-4.9) X10*3/uL Phillips # (Auto) (0.1-1.2) X10*3/uL Eos # (Auto) (0.0-0.4) X10*3/uL Baso # (Auto) (0.0-0.2) X10*3/uL Abs Immat Gran (auto) (0.00-0.03) X10*3/uL Absolute Neuts (auto) (2.0-8.3) X10*3/uL Absolute Nucleated RBC (0.0-0.012) X10*3/uL Nucleated RBC % (auto) (0.0-0.2) /100WBC VBG pH (7.32-7.43) VBG pCO2 mmHg VBG pO2 mmHg VBG HCO3 (22-26) mmol/L VBG O2 Saturation % VBG Base Excess mmol/L Sodium (135-145) mmol/L Potassium (3.3-5.1) mmol/L Chloride (96-108) mmol/L Carbon Dioxide (22-29) mmol/L Anion Gap (12-20) BUN (9-16) mg/dL Creatinine (0.5-1.4) mg/dL Estim Creat Clear Calc Estimated GFR POC Glucose 180 H (60-115) mg/dL Random Glucose (60-115) mg/dL Calcium (8.4-10.2) mg/dL Troponin I High Sens (<3.5-17.0) ng/L COVID-19 ([facility]) (Negative) COVID-19 Clin Com ECG Data ECG #1: Attestation: I personally reviewed and interpreted this ECG as follows: Prior ECG tracings: available for review (01/05/2020 no acute changes on comparison) Interpretation: Sinus rhythm with PACs, HR-86, no STEMI, CO/QRS/QTC are within normal limits. Discharge Plan Discharge Clinical Impression: COPD exacerbation Patient Disposition: Admitted As Inpatient Prescriptions: No Action ipratropium-albuterol 0.5 mg-3 mg(2.5 mg base)/3 mL solution for nebulization 3 ml inhalation Q4H PRN (Reason: shortness of breath or wheezing) Qty: 540 RF: 6 Robitussin Cough-Chest Tristan DM 5-50 mg/5 mL liquid 20 ml PO Q4-6H PRN (Reason: cough) 14 Days Qty: 300 RF: 5 tiotropium bromide [Spiriva with HandiHaler] 18 mcg capsule, w/inhalation device 1 cap inhalation DAILY Qty: 30 RF: 11 prednisone 10 mg tablet 10 mg PO BID 30 Days Qty: 60 RF: 5 immun glob L-han-focx-IgA 0-50 10 gram recon soln 40 g IV Q4W Qty: 2 RF: 12 amoxicillin-pot clavulanate [Augmentin] 875-125 mg tablet 1 tab PO BID 10 Days Qty: 20 RF: 0 docusate sodium 100 mg capsule 100 mg PO DAILY Qty: 30 RF: 3 Citrucel 500 mg tablet 500 mg PO DAILY Qty: 30 RF: 2 doxycycline hyclate 100 mg capsule 100 mg PO BID 14 Days Qty: 28 RF: 0 sennosides [Natural Senna Laxative] 8.6 mg tablet 8.6 mg PO BEDTIME PRN (Reason: constipation) Qty: 30 RF: 1 Daliresp 500 mcg tablet 500 mcg PO DAILY RF: 0 montelukast 10 mg tablet 10 mg PO DAILY RF: 0 albuterol sulfate [ProAir HFA] 90 mcg/actuation HFA aerosol inhaler 2 puff inhalation Q6H PRNRF: 0 loratadine [Claritin] 10 mg tablet 10 mg PO DAILY RF: 0 metformin 500 mg tablet 500 mg PO BID RF: 0 diltiazem HCl 300 mg capsule,extended release 24 hr 300 mg PO DAILY RF: 0 pantoprazole 40 mg tablet,delayed release (DR/EC) 40 mg PO DAILY RF: 0 lisinopril 40 mg tablet 40 mg PO DAILY RF: 0 zolpidem [Ambien] 10 mg tablet 10 mg PO BEDTIME PRNRF: 0 methadone 10 mg tablet 10 mg PO DAILY RF: 0 lamotrigine [Lamictal] 150 mg tablet 75 mg PO BID RF: 0 clonazepam 1 mg tablet 1 mg PO BID RF: 0 levofloxacin 500 mg tablet 500 mg PO DAILY 10 Days Qty: 10 RF: 0 Brovana 15 mcg/2 mL solution for nebulization 2 ml inhalation Q12H 30 Days Qty: 120 RF: 11 budesonide 0.5 mg/2 mL suspension for nebulization 0.5 mg inhalation BID Qty: 120 RF: 11 amoxicillin-pot clavulanate [Augmentin] 875-125 mg tablet 1 tab PO BID 21 Days Qty: 42 RF: 0
[2020-10-13] MEDS: Lidocaine HCl Viscous 2 % 15 ML SOLUTION 10 ML MUCOUS MEM (21:35)
[2020-10-13] MEDS: Magnesium Hydrox/Alum Hydrox 30 ML ORAL.SUSP PO (21:35)
[2020-10-13] MEDS: Albuterol Sulfate (0.083%) 2.5 MG/3 ML VIAL.NEB 5 MG INHALE (21:47)
[2020-10-13] MEDS: methylPREDNISolone Sod Succ 125 MG/2 ML VIAL IVPUSH (21:47)
[2020-10-13 21:54] VITALS: PULSE 83; O2SAT 96
[2020-10-13] MEDS: Albuterol Sulfate (0.083%) 2.5 MG/3 ML VIAL.NEB 10 MG INHALE (22:25)
[2020-10-13 22:26] VITALS: PULSE 86; O2SAT 95
--- NOTE | 2020-10-13 22:42 | PC.NURSE ---
construction equipment technician at bedside for labs.
[2020-10-13 22:53] LABS: Venous Blood Gas Refer to POC result
[2020-10-13 22:54] LABS: VBG Base Excess 22.6 mmol/L; VBG HCO3 55 mmol/L (22-26); VBG pCO2 103 mmHg; VBG pH 7.33 (7.32-7.43); VBG pO2 73 mmHg
[2020-10-13 23:17] LABS: Troponin-I High Sensitivity 7.1 ng/L (<3.5-17.0)
[2020-10-13 23:20] LABS: Glucose, Whole Blood 180 mg/dL (60-115)
[2020-10-13] MEDS: levoFLOXacin/D5W 750 MG/150 ML PIGGYBACK 100 MG IV (23:43)
[2020-10-13 23:49] LABS: Lactic Acid 1.2 mmol/L (0.5-2.0)
--- NOTE | 2020-10-13 23:52 | PC.NURSE ---
hospitalist at bedside for initial evaluation pt 02 sat 85% on 2L NC nasal cannula increased to 4L by hospitalist 02 sat now 89% on 4L NC , ok per hospitalist. per hospitalist, goal for 02 sat is >88% pt aware of plan for admission, pt has no questions or comments at this time
[2020-10-13 23:57] VITALS: PULSE 101; RESP 16; O2SAT 89
[2020-10-14] VITALS (14 sets, daily range): BP systolic 117–160; BP diastolic 56–91; PULSE 83–100; RESP 15–22; TEMP 36.1–36.4; O2SAT 89–101
[2020-10-14] MEDS: iohexoL 350 MG/ML 100 ML INFUS..BTL 65 ML IV (00:56)
--- NOTE | 2020-10-14 01:13 | PC.NURSE ---
NURSE TO NURSE REPORT GIVEN TO CONCETTA QUACH
[2020-10-14] MEDS: oxyCODONE HCl Immed Release 5 MG TABLET PO ×2 (02:28→11:37)
[2020-10-14] MEDS: methylPREDNISolone Sod Succ 40 MG/ML VIAL IVPUSH ×3 (02:29→21:09)
[2020-10-14] MEDS: Heparin Sodium,Porcine 5,000 UNIT/ML VIAL 5000 UNIT SUBCUT ×2 (02:35→13:18)
[2020-10-14] MEDS: 0.9 % Sodium Chloride Flush 3 ML SYRINGE IVFLUSH ×4 (02:36→21:10)
[2020-10-14] MEDS: Albuterol/Iprat 2.5/0.5MG 3 ML AMPUL.NEB INHALE ×5 (03:16→19:59)
[2020-10-14 06:20] LABS: Basophils Percent Auto 0.1 % (0-2); Hematocrit 39.6 % (37-47); Imm Gran Abs Auto 0.06 X10*3/uL (0.00-0.03); Imm Gran Pct Auto 0.6 % (0.0-0.4); Lymphocytes Absolute Auto 0.2 X10*3/uL (1.2-4.9); Lymphocytes Percent Auto 1.8 % (20-40); MANUAL DIFF FLAG SCAN; Mean Corpuscular HGB Conc 30.3 g/dl (31.0-35.0); Mean Corpuscular Hemoglobin 30.2 pg (27.0-33.0); Mean Corpuscular Volume 99.5 fL (80-98); Mean Platelet Volume 9.6 fL (9.4-12.3); Monocytes Absolute Auto 0.1 X10*3/uL (0.1-1.2); Monocytes Percent Auto 0.7 % (2-11); Neutrophils Absolute Auto 9.8 X10*3/uL (2.0-8.3); Neutrophils Percent Auto 96.8 % (45-73); Platelet Count 294 X10*3/uL (160-400); Red Blood Count 3.98 X10*6/uL (4.20-5.50); Red Cell Distribution Width 13.1 % (11.0-16.0); SCAN SMEAR FLAG 1; White Blood Count 10.2 X10*3/uL (4.8-10.8)
[2020-10-14 06:41] LABS: SLIDE REVIEW VERIFIED
--- NOTE | 2020-10-14 06:42 | PM.IMHP ---
History of Present Illness Date of Service: 10/13/20 Chief Complaint: Shortness of breath This is a 50-year-old female with past medical history of asthma/COPD overlap syndrome, chronic respiratory failure on 2 L of oxygen at home, essential hypertension, HLD, type 2 diabetes who presents to the hospital complaints of shortness of breath and chest pain that is exacerbated by deep inspiration and cough. Developed her symptoms about 3 days ago, she was started on IV antibiotics and steroids as patient improvement. She reports cough, sputum production, she uses 2.5 L at improvement in her symptoms, she denies any abdominal pain nausea or vomiting, no diarrhea constipation, no urinary symptoms. She denies any numbness tingling or weakness. Patient reports chronic lower extremity edema that has not changed, chronic orthopnea that has not changed, no PND. On arrival to the ED patient hemodynamically stable with no significant abnormal vitals, patient found to be hypoxic on 2 L of oxygen desatting to 85 while talking to me. Patient's O2 increased to 4 L, currently satting 89-90%. Lab significant for WBC count of hemoglobin of 12.3, labs otherwise unremarkable, pH of 7.3, CO2 of 103, Given her chest pain patient underwent CT angiogram that showed no PE, no dissection or aneurysm and no pneumonia Past medical history as below and confirmed with patient Review of Systems Review of Systems: Yes all other systems are reviewed and are negative [facility] Medical History Asthma-COPD overlap syndrome Chronic respiratory failure COPD exacerbation Essential hypertension Hyperlipidemia, unspecified Hypogammaglobulinemia Tachycardia Tobacco dependence Type 2 diabetes mellitus with unspecified complications Family History Father Diabetes Other Asthma Surgical History H/O tubal ligation Social History Household Members: Family Housing: Unknown / Unable to assess Do you presently have visiting nurse or other home services: No Alcohol intake: never Patient Tobacco Use Status: Current someday Tobacco user Years Smoked: 20 years Use of substances other than those prescribed or required for medical reasons: No Have you been hit, kicked, punched, or otherwise hurt by someone within the past year? If so, by whom?: No Do you feel safe in your current relationship?: Yes Is there a partner from a previous relationship who is making you feel unsafe now?: No Are you made to feel afraid or neglected: No Advance Directives: No Advance Directives Information Provided: Yes Do you have thoughts of harming others: None Do you have a plan to hurt others: No Plan Recently lost weight without trying: No Patient : No Current occupational status: disabled Meds Allergies Allergy/AdvReac Type Severity Reaction Status Date / Time No Known Allergies Allergy Verified 09/20/20 11:41 [No Known Allergies*] Active Medications: Current Medications Generic Name Dose Route Start Last Admin Trade Name Freq PRN Reason Stop Dose Admin Acetaminophen 650 mg 10/14/20 01:20 Acetaminophen 325 Mg Tablet PO Q6H PRN Pain, Mild (Pain Scale 1-3) Albuterol/Ipratropium 3 ml 10/14/20 08:00 Albuterol/Iprat 2.5/0.5mg 3 Ml Ampul.Neb INHALE RQ4H WHILE AWAKE [facility] Albuterol/Ipratropium 3 ml 10/14/20 01:20 10/14/20 03:16 Albuterol/Iprat 2.5/0.5mg 3 Ml Ampul.Neb INHALE 3 ml RQ4H PRN Administration Shortness of Breath/Wheezing Docusate Sodium 100 mg 10/14/20 01:20 Docusate Sodium 100 Mg Capsule PO DAILY PRN Constipation Heparin Sodium (Porcine) 5,000 unit 10/14/20 01:20 10/14/20 02:35 Heparin Sodium,Porcine 5,000 Unit/Ml Vial SUBCUT 5,000 unit Q12H ANA Administration Insulin Human Lispro 0 unit 10/14/20 07:30 Insulin Lispro 100 Unit/Ml 3 Ml Vial SUBCUT QIDACHS [facility] Protocol Methylprednisolone Sodium Succinate 40 mg 10/14/20 01:20 10/14/20 02:29 Methylprednisolone Sod Succ 40 Mg/Ml Vial IVPUSH 40 mg Q12H ANA Administration Ondansetron HCl 4 mg 10/14/20 01:20 Ondansetron Hcl 4 Mg/2 Ml Vial IVPUSH Q8H PRN Nausea and Vomiting Oxycodone HCl 5 mg 10/13/20 23:57 10/14/20 02:28 Oxycodone Hcl Immed Release 5 Mg Tablet PO 5 mg Q6H PRN Administration Pain, Severe (Pain Scale 7-10) Sodium Chloride 3 ml 10/14/20 01:20 10/14/20 02:36 0.9 % Sodium Chloride Flush 3 Ml Syringe IVFLUSH 3 ml QSHIFT [facility] Administration Home Medications Medication Instructions Recorded Confirmed Last Taken Type albuterol sulfate 90 mcg/actuation 2 puff INHALATION Q6H PRN 12/30/19 10/14/20 Unknown History aerosol inhaler (ProAir HFA) clonazepam 1 mg tablet 1 mg PO BID 12/30/19 10/14/20 1 Day Ago History ~10/13/20 diltiazem HCl 300 mg capsule,24 300 mg PO DAILY 12/30/19 10/14/20 1 Day Ago History hr,extended release ~10/13/20 lamotrigine 150 mg tablet 75 mg PO BID 12/30/19 10/14/20 1 Day Ago History (Lamictal) ~10/13/20 lisinopril 40 mg tablet 40 mg PO DAILY 12/30/19 10/14/20 1 Day Ago History ~10/13/20 loratadine 10 mg tablet (Claritin) 10 mg PO DAILY 12/30/19 10/14/20 Unknown History metformin 500 mg tablet 500 mg PO BID 12/30/19 10/14/20 Unknown History methadone 10 mg tablet 10 mg PO DAILY 12/30/19 10/14/20 Unknown History montelukast 10 mg tablet 10 mg PO DAILY 12/30/19 10/14/20 1 Day Ago History ~10/13/20 pantoprazole 40 mg tablet,delayed 40 mg PO DAILY 12/30/19 10/14/20 Unknown History release roflumilast 500 mcg tablet 500 mcg PO DAILY 12/30/19 09/20/20 Unknown History (Daliresp) zolpidem 10 mg tablet (Ambien) 10 mg PO BEDTIME PRN 12/30/19 10/14/20 Unknown History gabapentin 100 mg capsule 1 cap PO BID 10/14/20 10/14/20 Unknown History Physical Exam Vital Signs and Narrative: Vital Signs: Last Vital Signs Temp 97.1 F 10/14/20 04:00 Pulse 100 10/14/20 04:00 Resp 18 10/14/20 04:11 BP 131/56 L 10/14/20 04:00 Pulse Ox 98 10/14/20 04:00 Oxygen Flow Rate 2 10/13/20 19:41 Body Mass Index 40.0 Const: General: cooperative and no acute distress Orientation/consciousness: patient oriented x3 Eyes: General: appearance normal, both eyes and all related structures Resp: Other: Patient wheezing, has rhonchi bilaterally Effort & Inspection: normal respiratory effort and able to speak in complete sentences Cardio: Rate: regular rate Rhythm: regular rhythm GI: Palpation (GI): Soft to palpation Auscultation: normal bowel sounds Skin: General skin exam: no rashes or lesions noted Neuro: General: patient oriented x3 Cognition (Neuro): normal cognition Extrem: Other: 1+ pedal edema bilaterally General: Yes normal to inspection Results Labs CBC and Chem 7: 10/14/20 05:21 10/13/20 20:03 Labs: Laboratory Results - last 24 hr 10/13/20 10/13/20 10/13/20 20:03 20:03 20:03 MCV 97.8 MCH 30.3 MCHC 31.0 RDW 13.2 Plt Count 291 MPV 9.0 L Immature Gran % (Auto) 0.6 H Neut % (Auto) 86.3 H Lymph % (Auto) 8.2 L [place] % (Auto) 4.6 Eos % (Auto) 0.1 Baso % (Auto) 0.2 Lymph # (Auto) 1.1 L [place] # (Auto) 0.6 Eos # (Auto) 0.0 Baso # (Auto) 0.0 Abs Immat Gran (auto) 0.08 H Absolute Neuts (auto) 11.6 H Absolute Nucleated RBC 0.000 Nucleated RBC % (auto) 0.0 Smear Tech's Comments VBG pH VBG pCO2 VBG pO2 VBG HCO3 VBG O2 Saturation VBG Base Excess Anion Gap 16 Estim Creat Clear Calc 96.4 Estimated GFR > 60 POC Glucose Random Glucose 249 H D Lactic Acid Calcium 10.1 Troponin I High Sens 6.5 COVID-19 (PAPO) COVID-19 Clin Com 10/13/20 10/13/20 10/13/20 20:38 22:46 22:47 MCV MCH MCHC RDW Plt Count MPV Immature Gran % (Auto) Neut % (Auto) Lymph % (Auto) [place] % (Auto) Eos % (Auto) Baso % (Auto) Lymph # (Auto) [place] # (Auto) Eos # (Auto) Baso # (Auto) Abs Immat Gran (auto) Absolute Neuts (auto) Absolute Nucleated RBC Nucleated RBC % (auto) Smear Tech's Comments VBG pH 7.33 VBG pCO2 103 VBG pO2 73 VBG HCO3 55 H VBG O2 Saturation 92.0 VBG Base Excess 22.6 Anion Gap Estim Creat Clear Calc Estimated GFR POC Glucose Random Glucose Lactic Acid Calcium Troponin I High Sens 7.1 COVID-19 (PAPO) Negative COVID-19 Clin Com See Note 10/13/20 10/13/20 10/14/20 23:16 23:27 05:21 MCV 99.5 H MCH 30.2 MCHC 30.3 L RDW 13.1 Plt Count 294 MPV 9.6 Immature Gran % (Auto) 0.6 H Neut % (Auto) 96.8 H Lymph % (Auto) 1.8 L [place] % (Auto) 0.7 L Eos % (Auto) 0.0 Baso % (Auto) 0.1 Lymph # (Auto) 0.2 L [place] # (Auto) 0.1 Eos # (Auto) 0.0 Baso # (Auto) 0.0 Abs Immat Gran (auto) 0.06 H Absolute Neuts (auto) 9.8 H Absolute Nucleated RBC 0.000 Nucleated RBC % (auto) 0.0 Smear Tech's Comments VERIFIED VBG pH VBG pCO2 VBG pO2 VBG HCO3 VBG O2 Saturation VBG Base Excess Anion Gap Estim Creat Clear Calc Estimated GFR POC Glucose 180 H Random Glucose Lactic Acid 1.2 Calcium Troponin I High Sens COVID-19 (PAPO) COVID-19 Clin Com ECG Interpretation: Normal sinus rhythm Imaging Radiologist's Impressions: Impressions Chest X-Ray 10/13/20 19:48 IMPRESSION: No radiographic evidence of acute cardiopulmonary disease, appear unchanged since 01/05/2020. Chest CTA 10/14/20 00:02 IMPRESSION: * No pulmonary embolism. * No aortic aneurysm or dissection. * No pneumonitis, parenchymal consolidation or pneumothorax. * Mild emphysema and chronic bronchitis. VTE: negative Assessment and Plan (1) COPD exacerbation: Status: Acute (2) Acute and chronic respiratory failure with hypoxia: Status: Acute 50-year-old female with past medical history of COPD/asthma overlap syndrome who presents to the hospital with shortness of breath # acute on chronic hypoxic respiratory failure - patient chronically on 2 L of oxygen, requiring 4 L to maintain an O2 90% - secondary to COPD exacerbation - no evidence of pneumonia, COVID-19 negative, PE negative - will continue O2 as needed - titrate down as tolerated # acute COPD/asthma exacerbation - failed outpatient therapy - will start her on IV Solu-Medrol, DuoNeb p.r.n. and scheduled - BiPAP at nighttime- which she uses at home # tobacco use disorder - patient reports that she continues to smoke although is attempting to quit by using nicotine patch - discuss the importance of tobacco abstinence and patient understands # diabetes - continue home insulin - low-dose sliding scale - diabetic diet # hypertension - stable - continue medications DVT prophylaxis: Heparin subQ Quality Stroke Does the patient have a stroke diagnosis?: No VTE Prior VTE?: No VTE Risk Level:: Medical - moderate - high VTE Device Contraindication: Treatment Not Indicated VTE Drug Contraindication: N/A - Med Ordered
[2020-10-14 06:45] LABS: Anion Gap 13 (12-20); Blood Urea Nitrogen 14 mg/dL (9-16); Calcium 9.9 mg/dL (8.4-10.2); Carbon Dioxide 43 mmol/L (22-29); Chloride 88 mmol/L (96-108); Creatinine Clr Calc Pharmacy 92.7; Estimated Glomerular Filt Rate > 60; Glucose Random 329 mg/dL (60-115); Potassium 4.4 mmol/L (3.3-5.1); Sodium 140 mmol/L (135-145)
[2020-10-14 07:39] LABS: Glucose, Whole Blood 255 mg/dL (60-115)
[2020-10-14 07:44] LABS: B Type Natriuretic Peptide 24 pg/mL (<100)
[2020-10-14] MEDS: Insulin Lispro 100 UNIT/ML 3 ML VIAL SUBCUT ×4 (08:04→21:08)
[2020-10-14] MEDS: Loratadine 10 MG TABLET PO (08:05)
[2020-10-14] MEDS: Docusate Sodium 100 MG CAPSULE PO (08:05)
[2020-10-14] MEDS: Omeprazole 20 MG CAPSULE.DR PO (08:05)
[2020-10-14] MEDS: Gabapentin 100 MG CAPSULE PO ×2 (08:05→21:08)
[2020-10-14] MEDS: lamoTRIgine 25 MG TABLET 75 MG PO ×2 (08:06→21:09)
[2020-10-14] MEDS: clonazePAM 1 MG TABLET PO ×2 (08:06→21:08)
[2020-10-14] MEDS: metFORMIN HCl 500 MG TABLET PO (08:06)
[2020-10-14] MEDS: Montelukast Sodium 10 MG TABLET PO (08:06)
[2020-10-14] MEDS: dilTIAZem HCL CD 300 MG CAP.ER.24H PO (09:29)
[2020-10-14 11:46] LABS: Glucose, Whole Blood 310 mg/dL (60-115)
--- NOTE | 2020-10-14 11:57 | HO.PM.IMPN ---
Subjective Subjective Date of Service: 10/14/20 Interval History: Complaining of shortness of breath, left anterior chest and upper back pain with deep breathing, answering all questions appropriately, smokes few cigarettes a day, complaining of persistent productive, no fever , no chills. Review of Systems General no headache, no dizziness no fever chills. CVS chest pain with deep breathing, no palpitation. Respiratory cough with sputum production,sob. Gastrointestinal no nausea no vomiting, no abdominal pain Physical Exam Vital Signs: Vital Signs: Last Vital Signs Temp 97.2 F 10/14/20 11:26 Pulse 98 10/14/20 11:26 Resp 20 10/14/20 11:26 BP 117/67 10/14/20 11:26 Pulse Ox 94 10/14/20 11:26 Oxygen Flow Rate 2 10/13/20 19:41 Body Mass Index 40.0 General no acute distress, talking in full sentences Neck supple no JVD. CVS regular rate rhythm, Respiratory lungs bilateral diminished breath sounds,no respiratory distress, expiratory wheeze. Gastrointestinal abdomen soft, nontender, bowel sounds audible. Extremities no edema. Neuro nonfocal , speech clear. Skin no rash Objective Data Current Medications Generic Name Dose Route Start Last Admin Trade Name Freq PRN Reason Stop Dose Admin Acetaminophen 650 mg 10/14/20 01:20 Acetaminophen 325 Mg Tablet PO Q6H PRN Pain, Mild (Pain Scale 1-3) Albuterol Sulfate 2 puff 10/14/20 06:51 Albuterol Sulfate 90 Mcg 8 Gm Inhaler INHALE Q6H PRN Shortness Of Breath Or Wheezing Albuterol/Ipratropium 3 ml 10/14/20 08:00 10/14/20 07:41 Albuterol/Iprat 2.5/0.5mg 3 Ml Ampul.Neb INHALE 3 ml RQ4H WHILE AWAKE ANA Administration Albuterol/Ipratropium 3 ml 10/14/20 01:20 10/14/20 03:16 Albuterol/Iprat 2.5/0.5mg 3 Ml Ampul.Neb INHALE 3 ml RQ4H PRN Administration Shortness of Breath/Wheezing Clonazepam 1 mg 10/14/20 09:00 10/14/20 08:06 Clonazepam 1 Mg Tablet PO 1 mg BID ANA Administration Diltiazem HCl 300 mg 10/14/20 09:00 10/14/20 09:29 Diltiazem Hcl Cd 300 Mg Cap.Er.24h PO 300 mg DAILY ANA Administration Protocol Docusate Sodium 100 mg 10/14/20 01:20 Docusate Sodium 100 Mg Capsule PO DAILY PRN Constipation Docusate Sodium 100 mg 10/14/20 09:00 10/14/20 08:05 Docusate Sodium 100 Mg Capsule PO 100 mg DAILY ANA Administration Gabapentin 100 mg 10/14/20 09:00 10/14/20 08:05 Gabapentin 100 Mg Capsule PO 100 mg BID ANA Administration Guaifenesin/Dextromethorphan 10 ml 10/14/20 07:39 Guaifenesin Dm 200/20/10 Ml 10 Ml Syrup PO Q4H PRN cough Heparin Sodium (Porcine) 5,000 unit 10/14/20 01:20 10/14/20 02:35 Heparin Sodium,Porcine 5,000 Unit/Ml Vial SUBCUT 5,000 unit Q12H ANA Administration Insulin Human Lispro 0 unit 10/14/20 07:30 10/14/20 11:33 Insulin Lispro 100 Unit/Ml 3 Ml Vial SUBCUT 8 unit QIDACHS ANA Administration Protocol Lamotrigine 75 mg 10/14/20 09:00 10/14/20 08:06 Lamotrigine 25 Mg Tablet PO 75 mg BID ANA Administration Lisinopril 40 mg 10/14/20 09:00 10/14/20 08:07 Lisinopril 40 Mg Tablet PO 40 mg DAILY ANA Administration Protocol Loratadine 10 mg 10/14/20 09:00 10/14/20 08:05 Loratadine 10 Mg Tablet PO 10 mg DAILY ANA Administration Metformin HCl 500 mg 10/14/20 09:00 10/14/20 08:06 Metformin Hcl 500 Mg Tablet PO 500 mg BID ANA Administration Methadone HCl 50 mg 10/14/20 09:15 10/14/20 09:29 Methadone Hcl 1 Mg/0.1 Ml Oral.Conc PO 50 mg DAILY ANA Administration Methylprednisolone Sodium Succinate 40 mg 10/14/20 01:20 10/14/20 02:29 Methylprednisolone Sod Succ 40 Mg/Ml Vial IVPUSH 40 mg Q12H ANA Administration Montelukast Sodium 10 mg 10/14/20 09:00 10/14/20 08:06 Montelukast Sodium 10 Mg Tablet PO 10 mg DAILY ANA Administration Omeprazole 20 mg 10/14/20 09:00 10/14/20 08:05 Omeprazole 20 Mg Capsule.Dr PO 20 mg DAILY ANA Administration Ondansetron HCl 4 mg 10/14/20 01:20 Ondansetron Hcl 4 Mg/2 Ml Vial IVPUSH Q8H PRN Nausea and Vomiting Oxycodone HCl 5 mg 10/13/20 23:57 10/14/20 11:37 Oxycodone Hcl Immed Release 5 Mg Tablet PO 5 mg Q6H PRN Administration Pain, Severe (Pain Scale 7-10) Sodium Chloride 3 ml 10/14/20 01:20 10/14/20 08:21 0.9 % Sodium Chloride Flush 3 Ml Syringe IVFLUSH 3 ml QSHIFT ANA Administration Zolpidem Tartrate 10 mg 10/14/20 06:51 Zolpidem Tartrate 5 Mg Tablet PO BEDTIME PRN Sleep Labs CBC & Chem 7: 10/14/20 05:21 10/14/20 05:21 Labs: Laboratory Results - last 24 hr 10/13/20 10/13/20 10/13/20 20:03 20:03 20:03 MCV 97.8 MCH 30.3 MCHC 31.0 RDW 13.2 Plt Count 291 MPV 9.0 L Immature Gran % (Auto) 0.6 H Neut % (Auto) 86.3 H Lymph % (Auto) 8.2 L [place] % (Auto) 4.6 Eos % (Auto) 0.1 Baso % (Auto) 0.2 Lymph # (Auto) 1.1 L [place] # (Auto) 0.6 Eos # (Auto) 0.0 Baso # (Auto) 0.0 Abs Immat Gran (auto) 0.08 H Absolute Neuts (auto) 11.6 H Absolute Nucleated RBC 0.000 Nucleated RBC % (auto) 0.0 Smear Tech's Comments VBG pH VBG pCO2 VBG pO2 VBG HCO3 VBG O2 Saturation VBG Base Excess Anion Gap 16 Estim Creat Clear Calc 96.4 Estimated GFR > 60 POC Glucose Random Glucose 249 H D Lactic Acid Calcium 10.1 Troponin I High Sens 6.5 B-Natriuretic Peptide COVID-19 (PAPO) COVID-19 Clin Com 10/13/20 10/13/20 10/13/20 20:38 22:46 22:47 MCV MCH MCHC RDW Plt Count MPV Immature Gran % (Auto) Neut % (Auto) Lymph % (Auto) [place] % (Auto) Eos % (Auto) Baso % (Auto) Lymph # (Auto) [place] # (Auto) Eos # (Auto) Baso # (Auto) Abs Immat Gran (auto) Absolute Neuts (auto) Absolute Nucleated RBC Nucleated RBC % (auto) Smear Tech's Comments VBG pH 7.33 VBG pCO2 103 VBG pO2 73 VBG HCO3 55 H VBG O2 Saturation 92.0 VBG Base Excess 22.6 Anion Gap Estim Creat Clear Calc Estimated GFR POC Glucose Random Glucose Lactic Acid Calcium Troponin I High Sens 7.1 B-Natriuretic Peptide COVID-19 (PAPO) Negative COVID-[facility] [place] See Note 10/13/20 10/13/20 10/14/20 23:16 23:27 05:21 MCV 99.5 H MCH 30.2 MCHC 30.3 L RDW 13.1 Plt Count 294 MPV 9.6 Immature Gran % (Auto) 0.6 H Neut % (Auto) 96.8 H Lymph % (Auto) 1.8 L [place] % (Auto) 0.7 L Eos % (Auto) 0.0 Baso % (Auto) 0.1 Lymph # (Auto) 0.2 L [place] # (Auto) 0.1 Eos # (Auto) 0.0 Baso # (Auto) 0.0 Abs Immat Gran (auto) 0.06 H Absolute Neuts (auto) 9.8 H Absolute Nucleated RBC 0.000 Nucleated RBC % (auto) 0.0 Smear Tech's Comments VERIFIED VBG pH VBG pCO2 VBG pO2 VBG HCO3 VBG O2 Saturation VBG Base Excess Anion Gap Estim Creat Clear Calc Estimated GFR POC Glucose 180 H Random Glucose Lactic Acid 1.2 Calcium Troponin I High Sens B-Natriuretic Peptide COVID-19 (PAPO) COVID-[facility] [place] 10/14/20 10/14/20 10/14/20 05:21 05:21 07:31 MCV MCH MCHC RDW Plt Count MPV Immature Gran % (Auto) Neut % (Auto) Lymph % (Auto) [place] % (Auto) Eos % (Auto) Baso % (Auto) Lymph # (Auto) [place] # (Auto) Eos # (Auto) Baso # (Auto) Abs Immat Gran (auto) Absolute Neuts (auto) Absolute Nucleated RBC Nucleated RBC % (auto) Smear Tech's Comments VBG pH VBG pCO2 VBG pO2 VBG HCO3 VBG O2 Saturation VBG Base Excess Anion Gap 13 Estim Creat Clear Calc 92.7 Estimated GFR > 60 POC Glucose 255 H Random Glucose 329 H Lactic Acid Calcium 9.9 Troponin I High Sens B-Natriuretic Peptide 24 COVID-19 (PAPO) COVID-19 Clin Com 10/14/20 11:28 MCV MCH MCHC RDW Plt Count MPV Immature Gran % (Auto) Neut % (Auto) Lymph % (Auto) [place] % (Auto) Eos % (Auto) Baso % (Auto) Lymph # (Auto) [place] # (Auto) Eos # (Auto) Baso # (Auto) Abs Immat Gran (auto) Absolute Neuts (auto) Absolute Nucleated RBC Nucleated RBC % (auto) Smear Tech's Comments VBG pH VBG pCO2 VBG pO2 VBG HCO3 VBG O2 Saturation VBG Base Excess Anion Gap Estim Creat Clear Calc Estimated GFR POC Glucose 310 H Random Glucose Lactic Acid Calcium Troponin I High Sens B-Natriuretic Peptide COVID-19 (PAPO) COVID-19 Clin Com Assessment and Plan (1) COPD exacerbation: Status: Acute (2) Chronic respiratory failure: Status: Acute (3) Asthma-COPD overlap syndrome: Status: Acute (4) Tobacco dependence: Status: Acute Assessment and Plan: 50-year-old female with past medical history of COPD/asthma overlap syndrome who presents to the hospital with shortness of breath # acute on chronic hypoxic and hypercarbic respiratory failure due to acute COPD/asthma exacerbation Is oxygen dependent 2 L at home and on CPAP follows with Dr. Brito is outpatient Oxygenation improved,REY improved to 94% on 2 L of oxygen, will avoid high-flow oxygen due to hypercarbia no evidence of pneumonia, COVID-19 negative, PE negative Will continue IV steroids, cough medication, DuoNeb p.r.n. and scheduled, add IV azithromycin, continue Singulair Continue CPAP at night Will repeat VBG is since noted to have CO2 of 103 # hypogammaglobulinemia on IVIG infusion # tobacco use disorder - will order nicotine gum since patient is smoking only 2-3 cigarettes a day # diabetes - blood sugars in 300 likely due to steroid, continue home insulin, add insulin sliding scale and diabetic diet # hypertension - stable - continue medications DVT prophylaxis:? Heparin subQ Quality Stroke Does the patient have a stroke diagnosis?: No VTE Prior VTE?: No VTE Risk Level:: Medical - moderate - high VTE Device Contraindication: Treatment Not Indicated VTE Drug Contraindication: N/A - Med Ordered
--- NOTE | 2020-10-14 12:22 | HO.PM.IMPN ---
Subjective Subjective Date of Service: 10/14/20 Physical Exam Vital Signs: Vital Signs: Last Vital Signs Temp 97.2 F 10/14/20 11:26 Pulse 86 10/14/20 12:00 Resp 20 10/14/20 11:26 BP 117/67 10/14/20 11:26 Pulse Ox 94 10/14/20 11:26 Oxygen Flow Rate 2 10/13/20 19:41 Body Mass Index 40.0 Objective Data Current Medications Generic Name Dose Route Start Last Admin Trade Name [place] PRN Reason Stop Dose Admin Acetaminophen 650 mg 10/14/20 01:20 Acetaminophen 325 Mg Tablet PO Q6H PRN Pain, Mild (Pain Scale 1-3) Albuterol Sulfate 2 puff 10/14/20 06:51 Albuterol Sulfate 90 Mcg 8 Gm Inhaler INHALE Q6H PRN Shortness Of Breath Or Wheezing Albuterol/Ipratropium 3 ml 10/14/20 08:00 10/14/20 12:00 Albuterol/Iprat 2.5/0.5mg 3 Ml Ampul.Neb INHALE 3 ml RQ4H WHILE AWAKE ANA Administration Albuterol/Ipratropium 3 ml 10/14/20 01:20 10/14/20 03:16 Albuterol/Iprat 2.5/0.5mg 3 Ml Ampul.Neb INHALE 3 ml RQ4H PRN Administration Shortness of Breath/Wheezing Clonazepam 1 mg 10/14/20 09:00 10/14/20 08:06 Clonazepam 1 Mg Tablet PO 1 mg BID ANA Administration Diltiazem HCl 300 mg 10/14/20 09:00 10/14/20 09:29 Diltiazem Hcl Cd 300 Mg Cap.Er.24h PO 300 mg DAILY ANA Administration Protocol Docusate Sodium 100 mg 10/14/20 01:20 Docusate Sodium 100 Mg Capsule PO DAILY PRN Constipation Docusate Sodium 100 mg 10/14/20 09:00 10/14/20 08:05 Docusate Sodium 100 Mg Capsule PO 100 mg DAILY ANA Administration Gabapentin 100 mg 10/14/20 09:00 10/14/20 08:05 Gabapentin 100 Mg Capsule PO 100 mg BID ANA Administration Guaifenesin/Dextromethorphan 10 ml 10/14/20 07:39 Guaifenesin Dm 200/20/10 Ml 10 Ml Syrup PO Q4H PRN cough Heparin Sodium (Porcine) 5,000 unit 10/14/20 01:20 10/14/20 02:35 Heparin Sodium,Porcine 5,000 Unit/Ml Vial SUBCUT 5,000 unit Q12H [facility] Administration Azithromycin 500 mg/ Sodium 250 mls @ 125 mls/hr 10/14/20 12:15 Chloride IV Q24H [facility] Insulin Human Lispro 0 unit 10/14/20 07:30 10/14/20 11:33 Insulin Lispro 100 Unit/Ml 3 Ml Vial SUBCUT 8 unit QIDACHS [facility] Administration Protocol Lamotrigine 75 mg 10/14/20 09:00 10/14/20 08:06 Lamotrigine 25 Mg Tablet PO 75 mg BID [facility] Administration Lisinopril 40 mg 10/14/20 09:00 10/14/20 08:07 Lisinopril 40 Mg Tablet PO 40 mg DAILY [facility] Administration Protocol Loratadine 10 mg 10/14/20 09:00 10/14/20 08:05 Loratadine 10 Mg Tablet PO 10 mg DAILY [facility] Administration Metformin HCl 500 mg 10/14/20 09:00 10/14/20 08:06 Metformin Hcl 500 Mg Tablet PO 500 mg BID [facility] Administration Methadone HCl 50 mg 10/14/20 09:15 10/14/20 09:29 Methadone Hcl 1 Mg/0.1 Ml Oral.Conc PO 50 mg DAILY [facility] Administration Methylprednisolone Sodium Succinate 40 mg 10/14/20 12:15 Methylprednisolone Sod Succ 40 Mg/Ml Vial IVPUSH Q8H [facility] Montelukast Sodium 10 mg 10/14/20 09:00 10/14/20 08:06 Montelukast Sodium 10 Mg Tablet PO 10 mg DAILY [facility] Administration Omeprazole 20 mg 10/14/20 09:00 10/14/20 08:05 Omeprazole 20 Mg Capsule.Dr PO 20 mg DAILY [facility] Administration Ondansetron HCl 4 mg 10/14/20 01:20 Ondansetron Hcl 4 Mg/2 Ml Vial IVPUSH Q8H PRN Nausea and Vomiting Oxycodone HCl 5 mg 10/13/20 23:57 10/14/20 11:37 Oxycodone Hcl Immed Release 5 Mg Tablet PO 5 mg Q6H PRN Administration Pain, Severe (Pain Scale 7-10) Sodium Chloride 3 ml 10/14/20 01:20 10/14/20 08:21 0.9 % Sodium Chloride Flush 3 Ml Syringe IVFLUSH 3 ml QSHIFT ANA Administration Zolpidem Tartrate 10 mg 10/14/20 06:51 Zolpidem Tartrate 5 Mg Tablet PO BEDTIME PRN Sleep Labs CBC & Chem 7: 10/14/20 05:21 10/14/20 05:21 Labs: Laboratory Results - last 24 hr 10/13/20 10/13/20 10/13/20 20:03 20:03 20:03 MCV 97.8 MCH 30.3 MCHC 31.0 RDW 13.2 Plt Count 291 MPV 9.0 L Immature Gran % (Auto) 0.6 H Neut % (Auto) 86.3 H Lymph % (Auto) 8.2 L [place] % (Auto) 4.6 Eos % (Auto) 0.1 Baso % (Auto) 0.2 Lymph # (Auto) 1.1 L [place] # (Auto) 0.6 Eos # (Auto) 0.0 Baso # (Auto) 0.0 Abs Immat Gran (auto) 0.08 H Absolute Neuts (auto) 11.6 H Absolute Nucleated RBC 0.000 Nucleated RBC % (auto) 0.0 Smear Tech's Comments VBG pH VBG pCO2 VBG pO2 VBG HCO3 VBG O2 Saturation VBG Base Excess Anion Gap 16 Estim Creat Clear Calc 96.4 Estimated GFR > 60 POC Glucose Random Glucose 249 H D Lactic Acid Calcium 10.1 Troponin I High Sens 6.5 B-Natriuretic Peptide COVID-19 ([facility]) COVID-19 Clin Com 10/13/20 10/13/20 10/13/20 20:38 22:46 22:47 MCV MCH MCHC RDW Plt Count MPV Immature Gran % (Auto) Neut % (Auto) Lymph % (Auto) [place] % (Auto) Eos % (Auto) Baso % (Auto) Lymph # (Auto) [place] # (Auto) Eos # (Auto) Baso # (Auto) Abs Immat Gran (auto) Absolute Neuts (auto) Absolute Nucleated RBC Nucleated RBC % (auto) Smear Tech's Comments VBG pH 7.33 VBG pCO2 103 VBG pO2 73 VBG HCO3 55 H VBG O2 Saturation 92.0 VBG Base Excess 22.6 Anion Gap Estim Creat Clear Calc Estimated GFR POC Glucose Random Glucose Lactic Acid Calcium Troponin I High Sens 7.1 B-Natriuretic Peptide COVID-19 ([facility]) Negative COVID-19 Clin Com See Note 10/13/20 10/13/20 10/14/20 23:16 23:27 05:21 MCV 99.5 H MCH 30.2 MCHC 30.3 L RDW 13.1 Plt Count 294 MPV 9.6 Immature Gran % (Auto) 0.6 H Neut % (Auto) 96.8 H Lymph % (Auto) 1.8 L [place] % (Auto) 0.7 L Eos % (Auto) 0.0 Baso % (Auto) 0.1 Lymph # (Auto) 0.2 L [place] # (Auto) 0.1 Eos # (Auto) 0.0 Baso # (Auto) 0.0 Abs Immat Gran (auto) 0.06 H Absolute Neuts (auto) 9.8 H Absolute Nucleated RBC 0.000 Nucleated RBC % (auto) 0.0 Smear Tech's Comments VERIFIED VBG pH VBG pCO2 VBG pO2 VBG HCO3 VBG O2 Saturation VBG Base Excess Anion Gap Estim Creat Clear Calc Estimated GFR POC Glucose 180 H Random Glucose Lactic Acid 1.2 Calcium Troponin I High Sens B-Natriuretic Peptide COVID-19 ([facility]) COVID-[facility] Clin Com 10/14/20 10/14/20 10/14/20 05:21 05:21 07:31 MCV MCH MCHC RDW Plt Count MPV Immature Gran % (Auto) Neut % (Auto) Lymph % (Auto) [place] % (Auto) Eos % (Auto) Baso % (Auto) Lymph # (Auto) [place] # (Auto) Eos # (Auto) Baso # (Auto) Abs Immat Gran (auto) Absolute Neuts (auto) Absolute Nucleated RBC Nucleated RBC % (auto) Smear Tech's Comments VBG pH VBG pCO2 VBG pO2 VBG HCO3 VBG O2 Saturation VBG Base Excess Anion Gap 13 Estim Creat Clear Calc 92.7 Estimated GFR > 60 POC Glucose 255 H Random Glucose 329 H Lactic Acid Calcium 9.9 Troponin I High Sens B-Natriuretic Peptide 24 COVID-19 ([facility]) COVID-19 Clin Com 10/14/20 11:28 MCV MCH MCHC RDW Plt Count MPV Immature Gran % (Auto) Neut % (Auto) Lymph % (Auto) [place] % (Auto) Eos % (Auto) Baso % (Auto) Lymph # (Auto) [place] # (Auto) Eos # (Auto) Baso # (Auto) Abs Immat Gran (auto) Absolute Neuts (auto) Absolute Nucleated RBC Nucleated RBC % (auto) Smear Tech's Comments VBG pH VBG pCO2 VBG pO2 VBG HCO3 VBG O2 Saturation VBG Base Excess Anion Gap Estim Creat Clear Calc Estimated GFR POC Glucose 310 H Random Glucose Lactic Acid Calcium Troponin I High Sens B-Natriuretic Peptide COVID-19 ([facility]) COVID-19 Clin Com Quality Stroke Does the patient have a stroke diagnosis?: No VTE Prior VTE?: No VTE Risk Level:: Medical - moderate - high VTE Device Contraindication: Treatment Not Indicated VTE Drug Contraindication: N/A - Med Ordered
[2020-10-14] MEDS: Nicotine Polacrilex 2 MG GUM BUCCAL ×2 (13:16→21:06)
[2020-10-14] MEDS: Azithromycin 500 MG in 0.9 % Sodium Chloride 250 ML 125 MG IV (13:17)
[2020-10-14] MEDS: Acetaminophen 325 MG TABLET 650 MG PO (13:21)
[2020-10-14] MEDS: guaiFENesin DM 200/20/10 ML 10 ML SYRUP PO (13:22)
[2020-10-14 16:09] LABS: VBG Base Excess 23.4 mmol/L; VBG HCO3 55 mmol/L (22-26); VBG pCO2 94 mmHg; VBG pH 7.37 (7.32-7.43); VBG pO2 42 mmHg
[2020-10-14 16:11] LABS: Venous Blood Gas Refer to POC result
[2020-10-14 16:53] LABS: Glucose, Whole Blood 221 mg/dL (60-115)
[2020-10-14 20:33] LABS: Glucose, Whole Blood 248 mg/dL (60-115)
[2020-10-14] MEDS: Insulin Glargine,Hum.rec.anlog 100 UNIT/ML 10 ML VIAL 45 UNIT SUBCUT (22:50)
[2020-10-15] VITALS (10 sets, daily range): BP systolic 101–123; BP diastolic 53–72; PULSE 75–93; RESP 14–20; TEMP 35.8–36.2; O2SAT 90–98
[2020-10-15] MEDS: Heparin Sodium,Porcine 5,000 UNIT/ML VIAL 5000 UNIT SUBCUT ×2 (00:08→12:30)
[2020-10-15] MEDS: Nicotine Polacrilex 2 MG GUM BUCCAL ×3 (00:11→07:51)
[2020-10-15] MEDS: methylPREDNISolone Sod Succ 40 MG/ML VIAL IVPUSH (06:05)
[2020-10-15] MEDS: Albuterol/Iprat 2.5/0.5MG 3 ML AMPUL.NEB INHALE ×4 (07:16→20:56)
[2020-10-15 07:37] LABS: Glucose, Whole Blood 185 mg/dL (60-115)
[2020-10-15] MEDS: Insulin Lispro 100 UNIT/ML 3 ML VIAL SUBCUT ×4 (07:49→20:58)
[2020-10-15] MEDS: Omeprazole 20 MG CAPSULE.DR PO (07:51)
[2020-10-15] MEDS: clonazePAM 1 MG TABLET PO ×2 (07:51→20:56)
[2020-10-15] MEDS: Gabapentin 100 MG CAPSULE PO ×2 (07:52→20:57)
[2020-10-15] MEDS: lamoTRIgine 25 MG TABLET 75 MG PO ×2 (07:52→20:57)
[2020-10-15] MEDS: dilTIAZem HCL CD 300 MG CAP.ER.24H PO (07:52)
[2020-10-15] MEDS: Loratadine 10 MG TABLET PO (07:52)
[2020-10-15] MEDS: Docusate Sodium 100 MG CAPSULE PO (07:52)
[2020-10-15] MEDS: 0.9 % Sodium Chloride Flush 3 ML SYRINGE IVFLUSH ×3 (07:53→23:57)
[2020-10-15] MEDS: Montelukast Sodium 10 MG TABLET PO (08:05)
[2020-10-15] MEDS: acetaZOLAMIDE 250 MG TABLET 500 MG PO ×2 (09:22→20:56)
--- NOTE | 2020-10-15 10:36 | MHC.CM.PN ---
DISCHARGE PLAN BY [employer] DISCHARGE HOME 1. RESUMPTION OF ALTRANIS FOR NURSING DIAGNOSIS SIGN SYMPTOM MANAGEMENT AND ASSESSMENT And methdone delivery administration qd 2 self resumption of her mental health counseling at [facility] with therapist 3 self resumption of her animal warden through [facility] . 4self resumption of her home oxygen 5 transportation family vs need for transportation\ 6. pcp dr mcneil electronic medical record reviewed along with case discussed with staff nurse and hospitalist, met with patient and her daggughter, she lives at home and was admitted with the diagnosis of copd exacerbation she has history of :( asthma copd, chronic home o2 needs, respiratory failure, htn hld, dm. on admission she was placed on 4 liter s of oxygen with sats 89=90, ct scan was negative for pe. patient has not been vaccinated for covid -19 secondary to her condition, she ihas animal warden to assist with her adls and mobility family also very involved in helping her she is followed by dr dr forbes for pcp and dr cohen for pulmonary, at home she is on continuos 2 liters of oxygen, she has animal warden through [facility] 4 hours in the am and 4-6pm qd /7days a week. she is followed by [facility] for her methadone qd delivery and for nursing .and a therapist from [facility] for mental health counseling
[2020-10-15 11:19] LABS: Glucose, Whole Blood 341 mg/dL (60-115)
--- NOTE | 2020-10-15 11:30 | HO.PM.IMPN ---
Subjective Subjective Date of Service: 10/15/20 Interval History: Complaining of shortness of breath and chest discomfort with deep breathing and coughing, no fevers no chills. Review of Systems General no headache, no dizziness no fever chills.? CVS chest pain with deep breathing, no palpitation.? Respiratory? cough with sputum production,sob.? Gastrointestinal no nausea, no vomiting, no abdominal pain Physical Exam Vital Signs: Vital Signs: Last Vital Signs Temp 96.4 F L 10/15/20 07:21 Pulse 84 10/15/20 11:05 Resp 20 10/15/20 07:21 BP 115/61 10/15/20 07:21 Pulse Ox 95 10/15/20 07:21 Oxygen Flow Rate 2 10/13/20 19:41 Body Mass Index 40.0 General? no acute distress, talking in full sentences? Neck? supple no J VD. CVS? regular r ate rhythm, Respir atory lungs bilate ral diminished thuy ath sounds,mild re spiratory distress , expiratory wheez e. Gastrointestina l abdomen soft, no ntender, bowel tim nds audible. Extre mities no? edema. Neuro nonfocal , s peech clear. Skin no rash Objective Data Current Medications Generic Name Dose Route Start Last Admin Trade Name Freq PRN Reason Stop Dose Admin Acetaminophen 650 mg 10/14/20 01:20 10/14/20 13:21 Acetaminophen 325 Mg Tablet PO 650 mg Q6H PRN Administration Pain, Mild (Pain Scale 1-3) Acetazolamide 500 mg 10/15/20 09:00 10/15/20 09:22 Acetazolamide 250 Mg Tablet PO 500 mg BID ANA Administration Albuterol Sulfate 2 puff 10/14/20 06:51 Albuterol Sulfate 90 Mcg 8 Gm Inhaler INHALE Q6H PRN Shortness Of Breath Or Wheezing Albuterol/Ipratropium 3 ml 10/14/20 08:00 10/15/20 11:04 Albuterol/Iprat 2.5/0.5mg 3 Ml Ampul.Neb INHALE 3 ml RQ4H WHILE AWAKE ANA Administration Albuterol/Ipratropium 3 ml 10/14/20 01:20 10/14/20 03:16 Albuterol/Iprat 2.5/0.5mg 3 Ml Ampul.Neb INHALE 3 ml RQ4H PRN Administration Shortness of Breath/Wheezing Budesonide 2 puff 10/15/20 20:00 Budesonide 180 Mcg Aer.Pow.Ba INHALE RBID ANA Clonazepam 1 mg 10/14/20 09:00 10/15/20 07:51 Clonazepam 1 Mg Tablet PO 1 mg BID ANA Administration Diltiazem HCl 300 mg 10/14/20 09:00 10/15/20 07:52 Diltiazem Hcl Cd 300 Mg Cap.Er.24h PO 300 mg DAILY ANA Administration Protocol Docusate Sodium 100 mg 10/14/20 01:20 Docusate Sodium 100 Mg Capsule PO DAILY PRN Constipation Docusate Sodium 100 mg 10/14/20 09:00 10/15/20 07:52 Docusate Sodium 100 Mg Capsule PO 100 mg DAILY ANA Administration Gabapentin 100 mg 10/14/20 09:00 10/15/20 07:52 Gabapentin 100 Mg Capsule PO 100 mg BID ANA Administration Guaifenesin/Dextromethorphan 10 ml 10/14/20 07:39 10/14/20 13:22 Guaifenesin Dm 200/20/10 Ml 10 Ml Syrup PO 10 ml Q4H PRN Administration cough Heparin Sodium (Porcine) 5,000 unit 10/14/20 01:20 10/15/20 00:08 Heparin Sodium,Porcine 5,000 Unit/Ml Vial SUBCUT 5,000 unit Q12H [facility] Administration Azithromycin 500 mg/ Sodium 250 mls @ 125 mls/hr 10/14/20 12:15 10/14/20 15:41 Chloride IV Infused Q24H ANA Infusion Insulin Glargine 45 unit 10/14/20 22:10 10/14/20 22:50 Insulin Glargine,Hum.Rec.Anlog 100 Unit/Ml 10 Ml Vial SUBCUT 45 unit BEDTIME [facility] Administration Insulin Human Lispro 0 unit 10/14/20 07:30 10/15/20 07:49 Insulin Lispro 100 Unit/Ml 3 Ml Vial SUBCUT 2 unit QIDACHS [facility] Administration Protocol Lamotrigine 75 mg 10/14/20 09:00 10/15/20 07:52 Lamotrigine 25 Mg Tablet PO 75 mg BID ANA Administration Lisinopril 40 mg 10/14/20 09:00 10/15/20 07:51 Lisinopril 40 Mg Tablet PO 40 mg DAILY ANA Administration Protocol Loratadine 10 mg 10/14/20 09:00 10/15/20 07:52 Loratadine 10 Mg Tablet PO 10 mg DAILY ANA Administration Metformin HCl 500 mg 10/14/20 09:00 10/15/20 08:04 Metformin Hcl 500 Mg Tablet PO Not Given BID ANA Methadone HCl 50 mg 10/14/20 09:15 10/15/20 07:50 Methadone Hcl 1 Mg/0.1 Ml Oral.Conc PO 50 mg DAILY ANA Administration Methylprednisolone Sodium Succinate 40 mg 10/14/20 13:00 10/15/20 06:05 Methylprednisolone Sod Succ 40 Mg/Ml Vial IVPUSH 40 mg Q8H ANA Administration Montelukast Sodium 10 mg 10/14/20 09:00 10/15/20 08:05 Montelukast Sodium 10 Mg Tablet PO 10 mg DAILY ANA Administration Nicotine Polacrilex 2 mg 10/14/20 12:34 Nicotine Polacrilex 2 Mg Gum BUCCAL Q2H PRN Nicotine Cravings Omeprazole 20 mg 10/14/20 09:00 10/15/20 07:51 Omeprazole 20 Mg Capsule.Dr PO 20 mg DAILY ANA Administration Ondansetron HCl 4 mg 10/14/20 01:20 Ondansetron Hcl 4 Mg/2 Ml Vial IVPUSH Q8H PRN Nausea and Vomiting Oxycodone HCl 5 mg 10/13/20 23:57 10/14/20 11:37 Oxycodone Hcl Immed Release 5 Mg Tablet PO 5 mg Q6H PRN Administration Pain, Severe (Pain Scale 7-10) Sodium Chloride 3 ml 10/14/20 01:20 10/15/20 07:53 0.9 % Sodium Chloride Flush 3 Ml Syringe IVFLUSH 3 ml QSHIFT ANA Administration Zolpidem Tartrate 10 mg 10/14/20 06:51 Zolpidem Tartrate 5 Mg Tablet PO BEDTIME PRN Sleep Labs CBC & Chem 7: 10/14/20 05:21 10/14/20 05:21 Labs: Laboratory Results - last 24 hr 10/14/20 10/14/20 10/14/20 11:28 16:01 16:23 VBG pH 7.37 VBG pCO2 94 VBG pO2 42 VBG HCO3 55 H VBG O2 Saturation 61.0 VBG Base Excess 23.4 POC Glucose 310 H 221 H 10/14/20 10/15/20 10/15/20 20:25 07:19 11:12 VBG pH VBG pCO2 VBG pO2 VBG HCO3 VBG O2 Saturation VBG Base Excess POC Glucose 248 H 185 H 341 H Microbiology Microbiology Results: Microbiology 10/13/20 23:36 Blood Culture - Preliminary Blood - Venous No growth after 24 hours. 10/13/20 23:29 Blood Culture - Preliminary Blood - Venous No growth after 24 hours. Assessment and Plan (1) Acute and chronic respiratory failure with hypoxia: Status: Acute (2) COPD exacerbation: Status: Acute (3) Tobacco dependence: Status: Acute Assessment and Plan: 50-year-old female with past medical history of COPD/asthma overlap syndrome who presents to the hospital with shortness of breath # acute on chronic hypoxic and hypercarbic respiratory failure due to acute COPD/asthma exacerbation ?? Is oxygen dependent 2 L at home and on CPAP follows with Dr. Brito is outpatient ?? Persistent shortness of breath, and chest tightness, oxygenation improved,REY 94% on 2 L of oxygen ?? no evidence of pneumonia, COVID-19 negative, PE negative ?? Will continue IV steroids 40 mg Q 8h, continue cough medication, DuoNeb p.r.n. and scheduled, IV azithromycin, continue Singulair, Claritin, add pulmicort inhalers ?? Continue CPAP at night and daytime with naps ?? repeat VBG showed a pCO2 to 93 and stable pH Will consult pulmonology for further recommendation # hypogammaglobulinemia on IVIG infusion continue as out patient # tobacco use disorder - continuenicotine gum since patient is smoking only 2-3 cigarettes a day # diabetes - blood sugars elevated due to steroid, continue home insulin, insulin sliding scale and diabetic diet # hypertension - stable - continue medications DVT prophylaxis:? Heparin subQ Quality Stroke Does the patient have a stroke diagnosis?: No VTE Prior VTE?: No VTE Risk Level:: Medical - moderate - high VTE Device Contraindication: Treatment Not Indicated VTE Drug Contraindication: N/A - Med Ordered
--- NOTE | 2020-10-15 12:01 | PM.CNPUL ---
History of Present Illness History of Present Illness Consult date: 10/15/20 Chief complaint: COPD Excerbation Narrative: This is a 50-year-old female with past medical history of asthma/COPD overlap syndrome, liver cirrhosis, chronic respiratory failure on 2 L of oxygen at home and on NIV who presents to the hospital complaints of shortness of breath and chest pain that is exacerbated by deep inspiration and cough.? Developed her symptoms about 3 days ago, she was started on antibiotics and steroids as patient improvement.? She reports cough, sputum production, she uses 2.5 L at improvement in her symptoms, she denies any abdominal pain nausea or vomiting, no diarrhea constipation, no urinary symptoms.? She denies any numbness tingling or weakness. In the ED patient hemodynamically stable with no significant abnormal vitals, patient found to be hypoxic on 2 L of oxygen desatting to 85 while talking to me.? Patient's O2 increased to 4 L, currently satting 89-90%. ABG with pH of 7.3, CO2 of 103. The patient underwent CT angiogram that showed no PE, no dissection or aneurysm and no pneumonia Review of Systems Constitutional: Constitutional: Denies night sweats ENT: Denies change in voice, Denies lip swelling, Denies mouth pain, Reports nasal congestion, Reports nasal discharge and Denies tongue swelling Cardiovascular: Cardiovascular: Reports chest pain Respiratory: Respiratory: Reports change in phlegm color, Reports cough, Reports hemoptysis, Reports excessive phlegm production and Reports wheezing Gastrointestinal: Gastrointestinal: Denies abdominal pain Musculoskeletal: Musculoskeletal: Denies no additional musculoskeletal complaints Neurologic: Denies Neuro-related abnormal movements Psychiatric: Psychiatric: Denies no additional psychiatric complaints Hematologic/Lymphatic: Hematologic/Lymphatic: Denies easy bleeding and Denies lymphadenopathy Allergic/Immunologic: Allergic/Immunologic: Denies lip swelling, Denies tongue swelling and Reports wheezing PMFSH Past Medical History Medical History Asthma-COPD overlap syndrome Chronic respiratory failure COPD exacerbation Essential hypertension Hyperlipidemia, unspecified Hypogammaglobulinemia Tachycardia Tobacco dependence Type 2 diabetes mellitus with unspecified complications Family History Family History Father Diabetes Other Asthma Surgical History Surgical History H/O tubal ligation Social History Social History Household Members: Family Housing: Unknown / Unable to assess Do you presently have visiting nurse or other home services: No Alcohol intake: never Patient Tobacco Use Status: Current someday Tobacco user Years Smoked: 20 years Use of substances other than those prescribed or required for medical reasons: No Currently Displaying Signs/Symptoms of Drug Intoxication Withdrawal: No Have you been hit, kicked, punched, or otherwise hurt by someone within the past year? If so, by whom?: No Do you feel safe in your current relationship?: Yes Is there a partner from a previous relationship who is making you feel unsafe now?: No Are you made to feel afraid or neglected: No Advance Directives: No Advance Directives Information Provided: Yes Do you have thoughts of harming others: None Do you have a plan to hurt others: No Plan Recently lost weight without trying: No Patient : No service: No Current occupational status: disabled Meds Allergies Allergy/AdvReac Type Severity Reaction Status Date / Time No Known Allergies Allergy Verified 09/20/20 11:41 [No Known Allergies*] Active Medications: Current Medications Generic Name Dose Route Start Last Admin Trade Name Freq PRN Reason Stop Dose Admin Acetaminophen 650 mg 10/14/20 01:20 10/14/20 13:21 Acetaminophen 325 Mg Tablet PO 650 mg Q6H PRN Administration Pain, Mild (Pain Scale 1-3) Acetazolamide 500 mg 10/15/20 09:00 10/15/20 09:22 Acetazolamide 250 Mg Tablet PO 500 mg BID ANA Administration Albuterol Sulfate 2 puff 10/14/20 06:51 Albuterol Sulfate 90 Mcg 8 Gm Inhaler INHALE Q6H PRN Shortness Of Breath Or Wheezing Albuterol/Ipratropium 3 ml 10/14/20 08:00 10/15/20 11:04 Albuterol/Iprat 2.5/0.5mg 3 Ml Ampul.Neb INHALE 3 ml RQ4H WHILE AWAKE ANA Administration Albuterol/Ipratropium 3 ml 10/14/20 01:20 10/14/20 03:16 Albuterol/Iprat 2.5/0.5mg 3 Ml Ampul.Neb INHALE 3 ml RQ4H PRN Administration Shortness of Breath/Wheezing Budesonide 2 puff 10/15/20 20:00 Budesonide 180 Mcg Aer.Pow.Ba INHALE RBID [facility] Clonazepam 1 mg 10/14/20 09:00 10/15/20 07:51 Clonazepam 1 Mg Tablet PO 1 mg BID ANA Administration Diltiazem HCl 300 mg 10/14/20 09:00 10/15/20 07:52 Diltiazem Hcl Cd 300 Mg Cap.Er.24h PO 300 mg DAILY ANA Administration Protocol Docusate Sodium 100 mg 10/14/20 01:20 Docusate Sodium 100 Mg Capsule PO DAILY PRN Constipation Docusate Sodium 100 mg 10/14/20 09:00 10/15/20 07:52 Docusate Sodium 100 Mg Capsule PO 100 mg DAILY [facility] Administration Gabapentin 100 mg 10/14/20 09:00 10/15/20 07:52 Gabapentin 100 Mg Capsule PO 100 mg BID [facility] Administration Guaifenesin/Dextromethorphan 10 ml 10/14/20 07:39 10/14/20 13:22 Guaifenesin Dm 200/20/10 Ml 10 Ml Syrup PO 10 ml Q4H PRN Administration cough Heparin Sodium (Porcine) 5,000 unit 10/14/20 01:20 10/15/20 00:08 Heparin Sodium,Porcine 5,000 Unit/Ml Vial SUBCUT 5,000 unit Q12H [facility] Administration Azithromycin 500 mg/ Sodium 250 mls @ 125 mls/hr 10/14/20 12:15 10/14/20 15:41 Chloride IV Infused Q24H [facility] Infusion Insulin Glargine 45 unit 10/14/20 22:10 10/14/20 22:50 Insulin Glargine,Hum.Rec.Anlog 100 Unit/Ml 10 Ml Vial SUBCUT 45 unit BEDTIME [facility] Administration Insulin Human Lispro 0 unit 10/14/20 07:30 10/15/20 11:30 Insulin Lispro 100 Unit/Ml 3 Ml Vial SUBCUT 8 unit QIDACHS [facility] Administration Protocol Lamotrigine 75 mg 10/14/20 09:00 10/15/20 07:52 Lamotrigine 25 Mg Tablet PO 75 mg BID ANA Administration Lisinopril 40 mg 10/14/20 09:00 10/15/20 07:51 Lisinopril 40 Mg Tablet PO 40 mg DAILY ANA Administration Protocol Loratadine 10 mg 10/14/20 09:00 10/15/20 07:52 Loratadine 10 Mg Tablet PO 10 mg DAILY ANA Administration Metformin HCl 500 mg 10/14/20 09:00 10/15/20 08:04 Metformin Hcl 500 Mg Tablet PO Not Given BID ANA Methadone HCl 50 mg 10/14/20 09:15 10/15/20 07:50 Methadone Hcl 1 Mg/0.1 Ml Oral.Conc PO 50 mg DAILY ANA Administration Methylprednisolone Sodium Succinate 60 mg 10/15/20 12:00 Methylprednisolone Sod Succ 40 Mg/Ml Vial IVPUSH Q8H ANA Montelukast Sodium 10 mg 10/14/20 09:00 10/15/20 08:05 Montelukast Sodium 10 Mg Tablet PO 10 mg DAILY ANA Administration Nicotine 21 mg 10/15/20 12:00 Nicotine 21 Mg Patch.Td24 TRANSDERMA DAILY [facility] Nicotine Polacrilex 2 mg 10/14/20 12:34 Nicotine Polacrilex 2 Mg Gum BUCCAL Q2H PRN Nicotine Cravings Omeprazole 20 mg 10/14/20 09:00 10/15/20 07:51 Omeprazole 20 Mg Capsule.Dr PO 20 mg DAILY [facility] Administration Ondansetron HCl 4 mg 10/14/20 01:20 Ondansetron Hcl 4 Mg/2 Ml Vial IVPUSH Q8H PRN Nausea and Vomiting Oxycodone HCl 5 mg 10/13/20 23:57 10/14/20 11:37 Oxycodone Hcl Immed Release 5 Mg Tablet PO 5 mg Q6H PRN Administration Pain, Severe (Pain Scale 7-10) Sodium Chloride 3 ml 10/14/20 01:20 10/15/20 07:53 0.9 % Sodium Chloride Flush 3 Ml Syringe IVFLUSH 3 ml QSHIFT [facility] Administration Zolpidem Tartrate 10 mg 10/14/20 06:51 Zolpidem Tartrate 5 Mg Tablet PO BEDTIME PRN Sleep Home Medications Medication Instructions Recorded Confirmed Last Taken Type albuterol sulfate 90 mcg/actuation 2 puff INHALATION Q6H PRN 12/30/19 10/14/20 Unknown History aerosol inhaler (ProAir HFA) clonazepam 1 mg tablet 1 mg PO BID 12/30/19 10/14/20 1 Day Ago History ~10/13/20 diltiazem HCl 300 mg capsule,24 300 mg PO DAILY 12/30/19 10/14/20 1 Day Ago History hr,extended release ~10/13/20 lamotrigine 150 mg tablet 75 mg PO BID 12/30/19 10/14/20 1 Day Ago History (Lamictal) ~10/13/20 lisinopril 40 mg tablet 40 mg PO DAILY 12/30/19 10/14/20 1 Day Ago History ~10/13/20 loratadine 10 mg tablet (Claritin) 10 mg PO DAILY 12/30/19 10/14/20 Unknown History metformin 500 mg tablet 500 mg PO BID 12/30/19 10/14/20 Unknown History methadone 10 mg tablet 49 mg PO DAILY 12/30/19 10/14/20 Unknown History montelukast 10 mg tablet 10 mg PO DAILY 12/30/19 10/14/20 1 Day Ago History ~10/13/20 pantoprazole 40 mg tablet,delayed 40 mg PO DAILY 12/30/19 10/14/20 Unknown History release roflumilast 500 mcg tablet 500 mcg PO DAILY 12/30/19 09/20/20 Unknown History (Daliresp) zolpidem 10 mg tablet (Ambien) 10 mg PO BEDTIME PRN 12/30/19 10/14/20 Unknown History gabapentin 100 mg capsule 1 cap PO BID 10/14/20 10/14/20 Unknown History insulin glargine 100 unit/mL 45 unit SUBCUT BEDTIME 10/14/20 10/14/20 Unknown History subcutaneous solution (Lantus U-100 Insulin) Physical Exam Vital Signs: Vital Signs: Last Vital Signs Temp 96.4 F L 10/15/20 07:21 Pulse 84 10/15/20 11:05 Resp 20 10/15/20 07:21 BP 115/61 10/15/20 07:21 Pulse Ox 95 10/15/20 07:21 Oxygen Flow Rate 2 10/13/20 19:41 Body Mass Index 40.0 Const: General: ill appearing and tired appearing Eyes: Pupils: Equal, round and reactive pupils present Neck: Neck: Yes normal visual inspection, Yes full ROM and Yes no lymphadenopathy Chest: Chest palpation & inspection: normal inspection of the chest Resp: Auscultation: diminished lung sounds Cardio: Rate: regular rate Rhythm: regular rhythm Heart sounds: S1 normal heart sound present and S2 normal heart sound present GI: Palpation (GI): Soft to palpation and nontender Auscultation: normal bowel sounds Skin: General skin exam: rashes and/or lesions noted Neuro: Cranial nerves: Yes Equal, round and reactive pupils present Results Laboratory Findings CBC and BMP: 10/14/20 05:21 10/14/20 05:21 Abnormal lab findings: Abnormal Labs 10/13/20 10/13/20 10/13/20 20:03 20:03 22:46 WBC 13.5 H RBC 4.06 L MCV MCHC MPV 9.0 L Immature Gran % (Auto) 0.6 H Neut % (Auto) 86.3 H Lymph % (Auto) 8.2 L [place] % (Auto) Lymph # (Auto) 1.1 L Abs Immat Gran (auto) 0.08 H Absolute Neuts (auto) 11.6 H VBG HCO3 55 H Chloride 93 L Carbon Dioxide 39 H POC Glucose Random Glucose 249 H D 10/13/20 10/14/20 10/14/20 23:16 05:21 05:21 WBC RBC 3.98 L MCV 99.5 H MCHC 30.3 L MPV Immature Gran % (Auto) 0.6 H Neut % (Auto) 96.8 H Lymph % (Auto) 1.8 L [place] % (Auto) 0.7 L Lymph # (Auto) 0.2 L Abs Immat Gran (auto) 0.06 H Absolute Neuts (auto) 9.8 H VBG HCO3 Chloride 88 L Carbon Dioxide 43 H* POC Glucose 180 H Random Glucose 329 H 10/14/20 10/14/20 10/14/20 07:31 11:28 16:01 WBC RBC MCV MCHC MPV Immature Gran % (Auto) Neut % (Auto) Lymph % (Auto) [place] % (Auto) Lymph # (Auto) Abs Immat Gran (auto) Absolute Neuts (auto) VBG HCO3 55 H Chloride Carbon Dioxide POC Glucose 255 H 310 H Random Glucose 10/14/20 10/14/20 10/15/20 16:23 20:25 07:19 WBC RBC MCV MCHC MPV Immature Gran % (Auto) Neut % (Auto) Lymph % (Auto) [place] % (Auto) Lymph # (Auto) Abs Immat Gran (auto) Absolute Neuts (auto) VBG HCO3 Chloride Carbon Dioxide POC Glucose 221 H 248 H 185 H Random Glucose 10/15/20 11:12 WBC RBC MCV MCHC MPV Immature Gran % (Auto) Neut % (Auto) Lymph % (Auto) [place] % (Auto) Lymph # (Auto) Abs Immat Gran (auto) Absolute Neuts (auto) VBG HCO3 Chloride Carbon Dioxide POC Glucose 341 H Random Glucose Microbiology: Microbiology 10/13/20 23:36 Blood - Venous Blood Culture - Preliminary No growth after 24 hours. 10/13/20 23:29 Blood - Venous Blood Culture - Preliminary No growth after 24 hours. Assessment and Plan (1) Acute and chronic respiratory failure with hypoxia: Status: Acute (2) COPD exacerbation: Status: Acute (3) Tobacco dependence: Status: Acute (4) Encephalopathy: Status: Acute Increase Solu-Medrol to 60 mg Continue respiratory therapy Continue BiPAP therapy, repeat ABG in the morning Will benefit from adjusting her noninvasive ventilator at home to minimize hypercarbia. Tobacco dependency Ammonia level. Her encephalopathy mainly due to the hypercarbia although with her liver cirrhosis history I am concerned that she could also be encephalopathic from that Procedures Date of Service Date of Service: 10/15/20
[2020-10-15] MEDS: methylPREDNISolone Sod Succ 40 MG/ML VIAL 60 MG IVPUSH ×2 (12:28→20:59)
[2020-10-15] MEDS: Nicotine 21 MG PATCH.TD24 TRANSDERMA (12:28)
[2020-10-15] MEDS: Azithromycin 500 MG in 0.9 % Sodium Chloride 250 ML 125 MG IV (12:29)
[2020-10-15 13:01] LABS: Ammonia 58 umol/L (13-55)
[2020-10-15 16:33] LABS: Glucose, Whole Blood 199 mg/dL (60-115)
[2020-10-15 16:36] LABS: ABG Base Excess 15.4 mmol/L; ABG HCO3 46 mmol/L (22-26); ABG pCO2 92 mmHg (32-45); ABG pCO2 TC 88 mmHg (32-45); ABG pH 7.31 (7.35-7.45); ABG pH TC 7.32 (7.35-7.45); ABG pO2 88 mmHg (83-108); ABG pO2 TC 84 (83-108)
[2020-10-15 16:41] LABS: ABG Refer to POC result
[2020-10-15 19:25] LABS: Glucose, Whole Blood 280 mg/dL (60-115)
[2020-10-15] MEDS: oxyCODONE HCl Immed Release 5 MG TABLET PO (20:56)
[2020-10-15] MEDS: Insulin Glargine,Hum.rec.anlog 100 UNIT/ML 10 ML VIAL 45 UNIT SUBCUT (20:57)
[2020-10-15] MEDS: metFORMIN HCl 500 MG TABLET PO (20:57)
[2020-10-16] VITALS (10 sets, daily range): BP systolic 107–147; BP diastolic 57–90; PULSE 72–105; RESP 14–24; TEMP 36–37; O2SAT 91–99
[2020-10-16] MEDS: Heparin Sodium,Porcine 5,000 UNIT/ML VIAL 5000 UNIT SUBCUT ×2 (01:41→14:17)
[2020-10-16] MEDS: methylPREDNISolone Sod Succ 40 MG/ML VIAL 60 MG IVPUSH ×3 (05:06→21:41)
[2020-10-16 07:46] LABS: Glucose, Whole Blood 274 mg/dL (60-115)
[2020-10-16] MEDS: Albuterol/Iprat 2.5/0.5MG 3 ML AMPUL.NEB INHALE ×4 (08:08→18:50)
[2020-10-16] MEDS: Lactulose 20 GM/30 ML SOLUTION PO (08:40)
[2020-10-16] MEDS: Insulin Lispro 100 UNIT/ML 3 ML VIAL SUBCUT ×4 (08:40→21:41)
[2020-10-16] MEDS: acetaZOLAMIDE 250 MG TABLET 500 MG PO (08:41)
[2020-10-16] MEDS: Gabapentin 100 MG CAPSULE PO ×2 (08:41→21:44)
[2020-10-16] MEDS: Loratadine 10 MG TABLET PO (08:41)
[2020-10-16] MEDS: 0.9 % Sodium Chloride Flush 3 ML SYRINGE IVFLUSH ×2 (08:41→16:30)
[2020-10-16] MEDS: metFORMIN HCl 500 MG TABLET PO ×2 (08:41→21:42)
[2020-10-16] MEDS: Docusate Sodium 100 MG CAPSULE PO (08:41)
[2020-10-16] MEDS: Omeprazole 20 MG CAPSULE.DR PO (08:41)
[2020-10-16] MEDS: Montelukast Sodium 10 MG TABLET PO (08:41)
[2020-10-16] MEDS: dilTIAZem HCL CD 300 MG CAP.ER.24H PO (08:41)
[2020-10-16] MEDS: Nicotine 21 MG PATCH.TD24 TRANSDERMA (08:41)
[2020-10-16] MEDS: clonazePAM 1 MG TABLET PO ×2 (08:41→21:44)
[2020-10-16] MEDS: lamoTRIgine 25 MG TABLET 75 MG PO ×2 (08:42→21:42)
[2020-10-16 09:40] LABS: Anion Gap 12 (12-20); Blood Urea Nitrogen 29 mg/dL (9-16); Calcium 9.8 mg/dL (8.4-10.2); Carbon Dioxide 34 mmol/L (22-29); Chloride 98 mmol/L (96-108); Creatinine Clr Calc Pharmacy 97.7; Estimated Glomerular Filt Rate > 60; Glucose Random 245 mg/dL (60-115); Potassium 3.8 mmol/L (3.3-5.1); Sodium 140 mmol/L (135-145)
--- NOTE | 2020-10-16 09:59 | MHC.CM.PN ---
[facility].
[2020-10-16] MEDS: Budesonide 180 MCG AER.POW.BA 2 PUFF INHALE (11:42)
[2020-10-16 12:01] LABS: Glucose, Whole Blood 157 mg/dL (60-115)
[2020-10-16] MEDS: Azithromycin 500 MG in 0.9 % Sodium Chloride 250 ML 125 MG IV (12:03)
--- NOTE | 2020-10-16 14:06 | P.PNIM_ITS ---
Subjective Subjective Date of Service: 10/16/20 Interval History: Feels better this a.m., still short of breath, persistent cough, no fever, no chills, using BiPAP at night and during day. No confusion. Review of Systems General no headache, no dizziness no fever chills.? CVS chest pain with deep breathing, no palpitation.? Respiratory? cough with sputum production,sob.? Gastrointestinal no nausea, no vomiting, no abdominal pain Physical Exam Vital Signs: Vital Signs: Last Vital Signs Temp 98.6 F 10/16/20 11:53 Pulse 83 10/16/20 11:53 Resp 18 10/16/20 11:53 BP 107/71 10/16/20 11:53 Pulse Ox 95 10/16/20 11:53 Oxygen Flow Rate 2 10/13/20 19:41 Body Mass Index 40.0 General? no acute distress, talking in full sentences? Neck? supple no JVD. CVS? regular rate rhythm, Respiratory lungs bilateral diminished breath sounds,no respiratory distress, expiratory wheeze, slight improvement since yesterday Gastrointestinal abdomen soft, nontender, bowel sounds audible. Extremities no? edema. Neuro nonfocal , speech clear. No confusion Skin no rash Objective Data Current Medications Generic Name Dose Route Start Last Admin Trade Name Freq PRN Reason Stop Dose Admin Acetaminophen 650 mg 10/14/20 01:20 10/14/20 13:21 Acetaminophen 325 Mg Tablet PO 650 mg Q6H PRN Administration Pain, Mild (Pain Scale 1-3) Acetazolamide 500 mg 10/15/20 09:00 10/16/20 08:41 Acetazolamide 250 Mg Tablet PO 500 mg BID ANA Administration Albuterol Sulfate 2 puff 10/14/20 06:51 Albuterol Sulfate 90 Mcg 8 Gm Inhaler INHALE Q6H PRN Shortness Of Breath Or Wheezing Albuterol/Ipratropium 3 ml 10/14/20 08:00 10/16/20 11:39 Albuterol/Iprat 2.5/0.5mg 3 Ml Ampul.Neb INHALE 3 ml RQ4H WHILE AWAKE ANA Administration Albuterol/Ipratropium 3 ml 10/14/20 01:20 10/14/20 03:16 Albuterol/Iprat 2.5/0.5mg 3 Ml Ampul.Neb INHALE 3 ml RQ4H PRN Administration Shortness of Breath/Wheezing Budesonide 2 puff 10/15/20 20:00 10/16/20 11:42 Budesonide 180 Mcg Aer.Pow.Ba INHALE 2 puff RBID ANA Administration Clonazepam 1 mg 10/14/20 09:00 10/16/20 08:41 Clonazepam 1 Mg Tablet PO 1 mg BID ANA Administration Diltiazem HCl 300 mg 10/14/20 09:00 10/16/20 08:41 Diltiazem Hcl Cd 300 Mg Cap.Er.24h PO 300 mg DAILY ANA Administration Protocol Docusate Sodium 100 mg 10/14/20 01:20 Docusate Sodium 100 Mg Capsule PO DAILY PRN Constipation Docusate Sodium 100 mg 10/14/20 09:00 10/16/20 08:41 Docusate Sodium 100 Mg Capsule PO 100 mg DAILY ANA Administration Gabapentin 100 mg 10/14/20 09:00 10/16/20 08:41 Gabapentin 100 Mg Capsule PO 100 mg BID ANA Administration Guaifenesin/Dextromethorphan 10 ml 10/14/20 07:39 10/14/20 13:22 Guaifenesin Dm 200/20/10 Ml 10 Ml Syrup PO 10 ml Q4H PRN Administration cough Heparin Sodium (Porcine) 5,000 unit 10/14/20 01:20 10/16/20 01:41 Heparin Sodium,Porcine 5,000 Unit/Ml Vial SUBCUT 5,000 unit Q12H ANA Administration Azithromycin 500 mg/ Sodium 250 mls @ 125 mls/hr 10/14/20 12:15 10/16/20 12: 03 Chloride IV 125 mls/hr Q24H ANA Administration Insulin Glargine 45 unit 10/14/20 22:10 10/15/20 20:57 Insulin Glargine,Hum.Rec.Anlog 100 Unit/Ml 10 Ml Vial SUBCUT 45 unit BEDTIME ANA Administration Insulin Human Lispro 0 unit 10/14/20 07:30 10/16/20 12:03 Insulin Lispro 100 Unit/Ml 3 Ml Vial SUBCUT 2 unit QIDACHS ANA Administration Protocol Lamotrigine 75 mg 10/14/20 09:00 10/16/20 08:42 Lamotrigine 25 Mg Tablet PO 75 mg BID ANA Administration Lisinopril 40 mg 10/14/20 09:00 10/16/20 08:41 Lisinopril 40 Mg Tablet PO 40 mg DAILY ANA Administration Protocol Loratadine 10 mg 10/14/20 09:00 10/16/20 08:41 Loratadine 10 Mg Tablet PO 10 mg DAILY ANA Administration Metformin HCl 500 mg 10/14/20 09:00 10/16/20 08:41 Metformin Hcl 500 Mg Tablet PO 500 mg BID ANA Administration Methadone HCl 50 mg 10/14/20 09:15 10/16/20 08:41 Methadone Hcl 1 Mg/0.1 Ml Oral.Conc PO 50 mg DAILY ANA Administration Methylprednisolone Sodium Succinate 60 mg 10/15/20 12:00 10/16/20 12:03 Methylprednisolone Sod Succ 40 Mg/Ml Vial IVPUSH 60 mg Q8H ANA Administration Montelukast Sodium 10 mg 10/14/20 09:00 10/16/20 08:41 Montelukast Sodium 10 Mg Tablet PO 10 mg DAILY ANA Administration Nicotine 21 mg 10/15/20 12:00 08 08:41 Nicotine 21 Mg Patch.Td24 TRANSDERMA 21 mg DAILY ANA Administration Nicotine Polacrilex 2 mg 10/14/20 12:34 Nicotine Polacrilex 2 Mg Gum BUCCAL Q2H PRN Nicotine Cravings Omeprazole 20 mg 10/14/20 09:00 10/16/20 08:41 Omeprazole 20 Mg Capsule.Dr PO 20 mg DAILY ANA Administration Ondansetron HCl 4 mg 10/14/20 01:20 Ondansetron Hcl 4 Mg/2 Ml Vial IVPUSH Q8H PRN Nausea and Vomiting Oxycodone HCl 5 mg 10/13/20 23:57 10/15/20 20:56 Oxycodone Hcl Immed Release 5 Mg Tablet PO 5 mg Q6H PRN Administration Pain, Severe (Pain Scale 7-10) Sodium Chloride 3 ml 10/14/20 01:20 10/16/20 08:41 0.9 % Sodium Chloride Flush 3 Ml Syringe IVFLUSH 3 ml QSHIFT ANA Administration Zolpidem Tartrate 10 mg 10/14/20 06:51 Zolpidem Tartrate 5 Mg Tablet PO BEDTIME PRN Sleep Labs CBC & Chem 7: 10/14/20 05:21 10/16/20 08:30 Labs: Laboratory Results - last 24 hr 10/15/20 10/15/20 10/15/20 16:16 16:19 19:21 O2 Saturation 95.0 ABG pH at Pt Temp 7.31 L ABG pH (Temp Correct) 7.32 L ABG pCO2 at Pt Temp 92 H* ABG pCO2 (Temp Corrct 88 H* ABG pO2 at Pt Temp 88 ABG pO2 (Temp Correct 84 ABG HCO3 46 H ABG Base Excess (Actual) 15.4 Anion Gap Estim Creat Clear Calc Estimated GFR POC Glucose 199 H 280 H Random Glucose Calcium 10/16/20 10/16/20 10/16/20 07:36 08:30 11:53 O2 Saturation ABG pH at Pt Temp ABG pH (Temp Correct) ABG pCO2 at Pt Temp ABG pCO2 (Temp Corrct ABG pO2 at Pt Temp ABG pO2 (Temp Correct ABG HCO3 ABG Base Excess (Actual) Anion Gap 12 Estim Creat Clear Calc 97.7 Estimated GFR > 60 POC Glucose 274 H 157 H Random Glucose 245 H Calcium 9.8 Microbiology Microbiology Results: Microbiology 10/13/20 23:36 Blood Culture - Preliminary Blood - Venous No growth after 48 hours. 10/13/20 23:29 Blood Culture - Preliminary Blood - Venous No growth after 48 hours. Assessment and Plan (1) Acute and chronic respiratory failure with hypoxia: Status: Acute (2) COPD exacerbation: Status: Acute (3) Tobacco dependence: Status: Acute (4) Chronic respiratory failure: Status: Acute (5) Hypogammaglobulinemia: Status: Acute Assessment and Plan: 50-year-old female with past medical history of COPD/asthma overlap syndrome who presents to the hospital with shortness of breath # acute on chronic hypoxic and hypercarbic respiratory failure due to acute COPD/asthma exacerbation Slowly improving persistent shortness of breath, recommend to use CPAP at night and during daytime with naps ?? oxygen dependent 2 L at home and on CPAP , oxygenation? improved,REY 95% on 3 L of oxygen, will wean oxygen to 2 L ?? no evidence of pneumonia, COVID-19 negative, PE negative ?? Will continue IV steroids 60 mg Q 8h, continue cough medication, DuoNeb p.r.n. and scheduled, IV azithromycin, continue Singulair, Claritin, add pulmicort inhalers ?? Continue CPAP at night and daytime with naps ?? repeat ABG 10/15 showed a pCO2 of 92 ,pH 7.31 ?? Patient seen by Dr. Brito, dose of steroids increased , ammonia level checked is 58 lactulose given, no confusion noted. # metabolic alkalosis improving on Diamox 500 b.i.d. will change to Diamox 250 b.i.d. # hypogammaglobulinemia on IVIG infusion continue as out patient # tobacco use disorder - continue nicotine gum since patient is smoking only 2-3 cigarettes a day # diabetes - blood sugars elevated due to steroid, continue home insulin, metformin, insulin sliding scale and diabetic diet # hypertension - stable - continue medications # history of substance abuse continue methadone DVT prophylaxis:? Heparin subQ Quality Stroke Does the patient have a stroke diagnosis?: No VTE Prior VTE?: No VTE Risk Level:: Medical - moderate - high VTE Device Contraindication: Treatment Not Indicated VTE Drug Contraindication: N/A - Med Ordered
[2020-10-16] MEDS: Nicotine Polacrilex 2 MG GUM BUCCAL (18:44)
[2020-10-16 20:04] LABS: Glucose, Whole Blood 259 mg/dL (60-115)
[2020-10-16 20:38] LABS: Glucose, Whole Blood 436 mg/dL (60-115)
[2020-10-16] MEDS: Insulin Glargine,Hum.rec.anlog 100 UNIT/ML 10 ML VIAL 45 UNIT SUBCUT (21:41)
[2020-10-16] MEDS: acetaZOLAMIDE 250 MG TABLET PO (21:42)
[2020-10-16] MEDS: oxyCODONE HCl Immed Release 5 MG TABLET PO (21:43)
[2020-10-17] VITALS (12 sets, daily range): BP systolic 119–145; BP diastolic 55–82; PULSE 72–95; RESP 14–22; TEMP 36–37.1; O2SAT 93–99
[2020-10-17] MEDS: 0.9 % Sodium Chloride Flush 3 ML SYRINGE IVFLUSH ×3 (02:16→16:19)
[2020-10-17] MEDS: Heparin Sodium,Porcine 5,000 UNIT/ML VIAL 5000 UNIT SUBCUT ×2 (02:16→14:23)
[2020-10-17] MEDS: methylPREDNISolone Sod Succ 40 MG/ML VIAL 60 MG IVPUSH ×3 (06:19→20:23)
[2020-10-17] MEDS: Albuterol/Iprat 2.5/0.5MG 3 ML AMPUL.NEB INHALE ×4 (07:51→20:35)
[2020-10-17 07:54] LABS: Glucose, Whole Blood 268 mg/dL (60-115)
[2020-10-17] MEDS: Nicotine 21 MG PATCH.TD24 TRANSDERMA (08:34)
[2020-10-17] MEDS: Insulin Lispro 100 UNIT/ML 3 ML VIAL SUBCUT ×4 (08:34→20:24)
[2020-10-17] MEDS: lamoTRIgine 25 MG TABLET 75 MG PO ×3 (08:36→20:38)
[2020-10-17] MEDS: Omeprazole 20 MG CAPSULE.DR PO ×2 (08:36→09:33)
[2020-10-17] MEDS: Loratadine 10 MG TABLET PO ×2 (08:36→09:36)
[2020-10-17] MEDS: Montelukast Sodium 10 MG TABLET PO ×2 (08:36→09:36)
[2020-10-17] MEDS: Gabapentin 100 MG CAPSULE PO ×3 (08:36→20:24)
[2020-10-17] MEDS: Docusate Sodium 100 MG CAPSULE PO ×2 (08:36→09:34)
[2020-10-17] MEDS: dilTIAZem HCL CD 300 MG CAP.ER.24H PO ×2 (08:36→09:33)
[2020-10-17] MEDS: acetaZOLAMIDE 250 MG TABLET PO ×2 (08:36→20:24)
[2020-10-17] MEDS: clonazePAM 1 MG TABLET PO ×3 (08:36→20:24)
[2020-10-17] MEDS: metFORMIN HCl 500 MG TABLET PO ×3 (08:36→20:24)
[2020-10-17 11:33] LABS: Glucose, Whole Blood 329 mg/dL (60-115)
--- NOTE | 2020-10-17 11:52 | P.PNIM_ITS ---
Subjective Subjective Date of Service: 10/17/20 Interval History: Patient feeling better this morning, less shortness of breath, has been compliant with BiPAP, Review of Systems General no headache, no dizziness no fever chills.? CVS chest pain with deep breathing, no palpitation.? Respiratory? cough with sputum production,sob.? Gastrointestinal no nausea, no vomiting, no abdominal pain Physical Exam Vital Signs: Vital Signs: Last Vital Signs Temp 98.8 F 10/17/20 11:26 Pulse 82 10/17/20 11:26 Resp 18 10/17/20 11:26 BP 127/59 L 10/17/20 11:26 Pulse Ox 93 10/17/20 11:26 Oxygen Flow Rate 2 10/13/20 19:41 Body Mass Index 40.0 General? no acute distress, talking in full sentences? Neck? supple no JVD. CVS? regular rate rhythm, Respiratory lungs bilateral diminished breath sounds,no respiratory distress, bilateral expiratory wheeze Gastrointestinal abdomen soft, nontender, bowel sounds audible. Extremities no? edema. Neuro nonfocal , speech clear. No confusion Skin no rash Objective Data Current Medications Generic Name Dose Route Start Last Admin Trade Name Freq PRN Reason Stop Dose Admin Acetaminophen 650 mg 10/14/20 01:20 10/14/20 13:21 Acetaminophen 325 Mg Tablet PO 650 mg Q6H PRN Administration Pain, Mild (Pain Scale 1-3) Acetazolamide 250 mg 10/16/20 21:00 10/17/20 08:36 Acetazolamide 250 Mg Tablet PO 250 mg BID ANA Administration Albuterol Sulfate 2 puff 10/14/20 06:51 Albuterol Sulfate 90 Mcg 8 Gm Inhaler INHALE Q6H PRN Shortness Of Breath Or Wheezing Albuterol/Ipratropium 3 ml 10/14/20 08:00 10/17/20 07:51 Albuterol/Iprat 2.5/0.5mg 3 Ml Ampul.Neb INHALE 3 ml RQ4H WHILE AWAKE ANA Administration Albuterol/Ipratropium 3 ml 10/14/20 01:20 10/14/20 03:16 Albuterol/Iprat 2.5/0.5mg 3 Ml Ampul.Neb INHALE 3 ml RQ4H PRN Administration Shortness of Breath/Wheezing Budesonide 2 puff 10/15/20 20:00 10/17/20 00:49 Budesonide 180 Mcg Aer.Pow.Ba INHALE Not Given RBID ANA Clonazepam 1 mg 10/14/20 09:00 10/17/20 08:36 Clonazepam 1 Mg Tablet PO 1 mg BID ANA Administration Diltiazem HCl 300 mg 10/14/20 09:00 10/17/20 08:36 Diltiazem Hcl Cd 300 Mg Cap.Er.24h PO 300 mg DAILY ANA Administration Protocol Docusate Sodium 100 mg 10/14/20 01:20 Docusate Sodium 100 Mg Capsule PO DAILY PRN Constipation Docusate Sodium 100 mg 10/14/20 09:00 10/17/20 08:36 Docusate Sodium 100 Mg Capsule PO 100 mg DAILY ANA Administration Gabapentin 100 mg 10/14/20 09:00 10/17/20 08:36 Gabapentin 100 Mg Capsule PO 100 mg BID ANA Administration Guaifenesin/Dextromethorphan 10 ml 10/14/20 07:39 10/14/20 13:22 Guaifenesin Dm 200/20/10 Ml 10 Ml Syrup PO 10 ml Q4H PRN Administration cough Heparin Sodium (Porcine) 5,000 unit 10/14/20 01:20 10/17/20 02:16 Heparin Sodium,Porcine 5,000 Unit/Ml Vial SUBCUT 5,000 unit Q12H ANA Administration Azithromycin 500 mg/ Sodium 250 mls @ 125 mls/hr 10/14/20 12:15 10/16/20 14:11 Chloride IV Infused Q24H ANA Infusion Insulin Glargine 45 unit 10/14/20 22:10 10/16/20 21:41 Insulin Glargine,Hum.Rec.Anlog 100 Unit/Ml 10 Ml Vial SUBCUT 45 unit BEDTIME ANA Administration Insulin Human Lispro 0 unit 10/14/20 07:30 10/17/20 11:45 Insulin Lispro 100 Unit/Ml 3 Ml Vial SUBCUT 8 unit QIDACHS [facility] Administration Protocol Lamotrigine 75 mg 10/14/20 09:00 10/17/20 08:36 Lamotrigine 25 Mg Tablet PO 75 mg BID ANA Administration Lisinopril 40 mg 10/14/20 09:00 10/17/20 08:36 Lisinopril 40 Mg Tablet PO 40 mg DAILY ANA Administration Protocol Loratadine 10 mg 10/14/20 09:00 10/17/20 08:36 Loratadine 10 Mg Tablet PO 10 mg DAILY ANA Administration Metformin HCl 500 mg 10/14/20 09:00 10/17/20 08:36 Metformin Hcl 500 Mg Tablet PO 500 mg BID ANA Administration Methadone HCl 50 mg 10/14/20 09:15 10/17/20 08:35 Methadone Hcl 1 Mg/0.1 Ml Oral.Conc PO 50 mg DAILY ANA Administration Methylprednisolone Sodium Succinate 60 mg 10/15/20 12:00 10/17/20 06:19 Methylprednisolone Sod Succ 40 Mg/Ml Vial IVPUSH 60 mg Q8H ANA Administration Montelukast Sodium 10 mg 10/14/20 09:00 10/17/20 08:36 Montelukast Sodium 10 Mg Tablet PO 10 mg DAILY ANA Administration Nicotine 21 mg 10/15/20 12:00 10/17/20 08:34 Nicotine 21 Mg Patch.Td24 TRANSDERMA 21 mg DAILY ANA Administration Nicotine Polacrilex 2 mg 10/14/20 12:34 10/16/20 18:44 Nicotine Polacrilex 2 Mg Gum BUCCAL 2 mg Q2H PRN Administration Nicotine Cravings Omeprazole 20 mg 10/14/20 09:00 10/17/20 08:36 Omeprazole 20 Mg Capsule.Dr PO 20 mg DAILY ANA Administration Ondansetron HCl 4 mg 10/14/20 01:20 Ondansetron Hcl 4 Mg/2 Ml Vial IVPUSH Q8H PRN Nausea and Vomiting Oxycodone HCl 5 mg 10/13/20 23:57 10/16/20 21:43 Oxycodone Hcl Immed Release 5 Mg Tablet PO 5 mg Q6H PRN Administration Pain, Severe (Pain Scale 7-10) Sodium Chloride 3 ml 10/14/20 01:20 10/17/20 08:34 0.9 % Sodium Chloride Flush 3 Ml Syringe IVFLUSH 3 ml QSHIFT ANA Administration Zolpidem Tartrate 10 mg 10/14/20 06:51 Zolpidem Tartrate 5 Mg Tablet PO BEDTIME PRN Sleep Labs CBC & Chem 7: 10/14/20 05:21 10/16/20 08:30 Labs: Laboratory Results - last 24 hr 10/16/20 10/16/20 10/16/20 11:53 16:13 20:31 POC Glucose 157 H 259 H 436 H* 10/17/20 10/17/20 07:44 11:25 POC Glucose 268 H 329 H Assessment and Plan (1) Acute and chronic respiratory failure with hypoxia: Status: Acute (2) COPD exacerbation: Status: Acute (3) Type 2 diabetes mellitus with unspecified complications: Status: Acute (4) Asthma-COPD overlap syndrome: Status: Acute Assessment and Plan: 50-year-old female with past medical history of COPD/asthma overlap syndrome who presents to the hospital with shortness of breath # acute on chronic hypoxic and hypercarbic respiratory failure due to acute COPD/asthma exacerbation ?? Slowly improving persistent shortness of breath, chest tightness and diminished breath sound, oxygen dependent 2 L at home and on CPAP , oxygenation? improved,REY 95% on 2 L of oxygen, no evidence of pneumonia, COVID-19 negative, PE negative ?? continue current treatment with IV steroids 60 mg Q 8h, continue cough medication, DuoNeb p.r.n. and scheduled, IV azithromycin, continue Singulair, Claritin, pulmicort inhalers ?? Continue BiPAP at night and daytime with naps ?? repeat ABG 10/15 showed a pCO2 of 92 ,pH 7.31, will repeat VBG is today ?? no confusion # metabolic alkalosis improving continue Diamox 250 b.i.d. follow labs # hypogammaglobulinemia on IVIG infusion continue as out patient # tobacco use disorder - continue nicotine patch 21 mg/d # diabetes - blood sugars elevated due to steroid, continue home insulin, metformin, insulin sliding scale dose adjusted, and diabetic diet # hypertension - stable - continue medications # history of substance abuse continue methadone DVT prophylaxis:? Heparin subQ Quality Stroke Does the patient have a stroke diagnosis?: No VTE Prior VTE?: No VTE Risk Level:: Medical - moderate - high VTE Device Contraindication: Treatment Not Indicated VTE Drug Contraindication: N/A - Med Ordered
[2020-10-17] MEDS: Azithromycin 500 MG in 0.9 % Sodium Chloride 250 ML 125 MG IV (12:00)
[2020-10-17 12:33] LABS: Venous Blood Gas Refer to POC result
[2020-10-17 12:34] LABS: VBG Base Excess 2.8 mmol/L; VBG HCO3 28 mmol/L (22-26); VBG pCO2 44 mmHg; VBG pO2 64 mmHg
[2020-10-17] MEDS: Nicotine Polacrilex 2 MG GUM BUCCAL (12:57)
[2020-10-17 16:10] LABS: Glucose, Whole Blood 224 mg/dL (60-115)
[2020-10-17 20:21] LABS: Glucose, Whole Blood 243 mg/dL (60-115)
[2020-10-17] MEDS: Insulin Glargine,Hum.rec.anlog 100 UNIT/ML 10 ML VIAL 45 UNIT SUBCUT (20:24)
[2020-10-17] MEDS: Acetaminophen 325 MG TABLET 650 MG PO (20:36)
[2020-10-17] MEDS: Budesonide 180 MCG AER.POW.BA 2 PUFF INHALE (20:37)
[2020-10-17] MEDS: Albuterol Sulfate 90 MCG 8 GM INHALER 2 PUFF INHALE (20:37)
[2020-10-18] VITALS (11 sets, daily range): BP systolic 106–141; BP diastolic 69–81; PULSE 79–92; RESP 12–18; TEMP 35.9–36.3; O2SAT 94–100
[2020-10-18] MEDS: Heparin Sodium,Porcine 5,000 UNIT/ML VIAL 5000 UNIT SUBCUT ×2 (01:31→14:48)
[2020-10-18] MEDS: 0.9 % Sodium Chloride Flush 3 ML SYRINGE IVFLUSH ×4 (01:32→20:50)
[2020-10-18] MEDS: methylPREDNISolone Sod Succ 40 MG/ML VIAL 60 MG IVPUSH (04:54)
[2020-10-18 07:06] LABS: Anion Gap 9 (12-20); Blood Urea Nitrogen 40 mg/dL (9-16); Calcium 8.8 mg/dL (8.4-10.2); Carbon Dioxide 35 mmol/L (22-29); Chloride 99 mmol/L (96-108); Creatinine Clr Calc Pharmacy 92.7; Estimated Glomerular Filt Rate > 60; Glucose Random 285 mg/dL (60-115); Potassium 3.8 mmol/L (3.3-5.1); Sodium 139 mmol/L (135-145)
[2020-10-18] MEDS: Albuterol/Iprat 2.5/0.5MG 3 ML AMPUL.NEB INHALE ×4 (07:29→20:27)
[2020-10-18 08:02] LABS: Glucose, Whole Blood 304 mg/dL (60-115)
[2020-10-18] MEDS: oxyCODONE HCl Immed Release 5 MG TABLET PO (08:06)
[2020-10-18] MEDS: Montelukast Sodium 10 MG TABLET PO (08:07)
[2020-10-18] MEDS: Insulin Lispro 100 UNIT/ML 3 ML VIAL SUBCUT ×4 (08:07→20:44)
[2020-10-18] MEDS: Loratadine 10 MG TABLET PO (08:07)
[2020-10-18] MEDS: dilTIAZem HCL CD 300 MG CAP.ER.24H PO (08:07)
[2020-10-18] MEDS: Nicotine 21 MG PATCH.TD24 TRANSDERMA (08:07)
[2020-10-18] MEDS: acetaZOLAMIDE 250 MG TABLET PO ×2 (08:08→20:44)
[2020-10-18] MEDS: Omeprazole 20 MG CAPSULE.DR PO (08:08)
[2020-10-18] MEDS: Gabapentin 100 MG CAPSULE PO ×2 (08:08→20:44)
[2020-10-18] MEDS: clonazePAM 1 MG TABLET PO ×2 (08:08→20:44)
[2020-10-18] MEDS: Docusate Sodium 100 MG CAPSULE PO (08:08)
[2020-10-18] MEDS: metFORMIN HCl 500 MG TABLET PO ×2 (08:08→20:44)
[2020-10-18] MEDS: lamoTRIgine 25 MG TABLET 75 MG PO ×2 (10:11→20:44)
[2020-10-18] MEDS: Budesonide 180 MCG AER.POW.BA 2 PUFF INHALE (10:11)
--- NOTE | 2020-10-18 11:35 | P.PNIM_ITS ---
Subjective Subjective Date of Service: 10/18/20 Interval History: History obtained via seismic interpreter, patient feels better, less shortness of breath and cough, she feels she is very close to her baseline. Review of Systems General no headache, no dizziness no fever chills.? CVS no chest pain, no palpitation.? Respiratory? less sob and cough Gastrointestinal no nausea, no vomiting, no abdominal pain Physical Exam Vital Signs: Vital Signs: Last Vital Signs Temp 97.3 F 10/18/20 11:21 Pulse 84 10/18/20 11:21 Resp 18 10/18/20 11:21 BP 106/71 10/18/20 11:21 Pulse Ox 94 10/18/20 11:21 Oxygen Flow Rate 2 10/13/20 19:41 Body Mass Index 40.0 General? no acute distress, talking in full sentences? Neck? supple no JVD. CVS? regular rate rhythm, Respiratory lungs bilateral diminished breath sounds,no respiratory distress, few scattered expiratory wheeze, significant improvement in lung exam Gastrointestinal abdomen soft, nontender, bowel sounds audible. Extremities no? edema. Neuro nonfocal , speech clear. No confusion Skin no rash Objective Data Current Medications Generic Name Dose Route Start Last Admin Trade Name Freq PRN Reason Stop Dose Admin Acetaminophen 650 mg 10/14/20 01:20 10/17/20 20:36 Acetaminophen 325 Mg Tablet PO 650 mg Q6H PRN Administration Pain, Mild (Pain Scale 1-3) Acetazolamide 250 mg 10/16/20 21:00 10/18/20 08:08 Acetazolamide 250 Mg Tablet PO 250 mg BID ANA Administration Albuterol Sulfate 2 puff 10/14/20 06:51 10/17/20 20:37 Albuterol Sulfate 90 Mcg 8 Gm Inhaler INHALE 2 puff Q6H PRN Administration Shortness Of Breath Or Wheezing Albuterol/Ipratropium 3 ml 10/14/20 08:00 10/18/20 07:29 Albuterol/Iprat 2.5/0.5mg 3 Ml Ampul.Neb INHALE 3 ml RQ4H WHILE AWAKE ANA Administration Albuterol/Ipratropium 3 ml 10/14/20 01:20 10/14/20 03:16 Albuterol/Iprat 2.5/0.5mg 3 Ml Ampul.Neb INHALE 3 ml RQ4H PRN Administration Shortness of Breath/Wheezing Budesonide 2 puff 10/15/20 20:00 10/18/20 10:11 Budesonide 180 Mcg Aer.Pow.Ba INHALE 2 puff RBID ANA Administration Clonazepam 1 mg 10/14/20 09:00 10/18/20 08:08 Clonazepam 1 Mg Tablet PO 1 mg BID ANA Administration Diltiazem HCl 300 mg 10/14/20 09:00 10/18/20 08:07 Diltiazem Hcl Cd 300 Mg Cap.Er.24h PO 300 mg DAILY ANA Administration Protocol Docusate Sodium 100 mg 10/14/20 01:20 Docusate Sodium 100 Mg Capsule PO DAILY PRN Constipation Docusate Sodium 100 mg 10/14/20 09:00 10/18/20 08:08 Docusate Sodium 100 Mg Capsule PO 100 mg DAILY ANA Administration Gabapentin 100 mg 10/14/20 09:00 10/18/20 08:08 Gabapentin 100 Mg Capsule PO 100 mg BID ANA Administration Guaifenesin/Dextromethorphan 10 ml 10/14/20 07:39 10/14/20 13:22 Guaifenesin Dm 200/20/10 Ml 10 Ml Syrup PO 10 ml Q4H PRN Administration cough Heparin Sodium (Porcine) 5,000 unit 10/14/20 01:20 10/18/20 01:31 Heparin Sodium,Porcine 5,000 Unit/Ml Vial SUBCUT 5,000 unit Q12H ANA Administration Azithromycin 500 mg/ Sodium 250 mls @ 125 mls/hr 10/14/20 12:15 10/17/20 14:16 Chloride IV Infused Q24H ANA Infusion Insulin Glargine 45 unit 10/14/20 22:10 10/17/20 20:24 Insulin Glargine,Hum.Rec.Anlog 100 Unit/Ml 10 Ml Vial SUBCUT 45 unit BEDTIME ANA Administration Insulin Human Lispro 0 unit 10/14/20 07:30 10/18/20 08:07 Insulin Lispro 100 Unit/Ml 3 Ml Vial SUBCUT 6 unit QIDACHS ANA Administration Protocol Lamotrigine 75 mg 10/14/20 09:00 10/18/20 10:11 Lamotrigine 25 Mg Tablet PO 75 mg BID ANA Administration Lisinopril 40 mg 10/14/20 09:00 10/18/20 08:07 Lisinopril 40 Mg Tablet PO 40 mg DAILY ANA Administration Protocol Loratadine 10 mg 10/14/20 09:00 10/18/20 08:07 Loratadine 10 Mg Tablet PO 10 mg DAILY ANA Administration Metformin HCl 500 mg 10/14/20 09:00 10/18/20 08:08 Metformin Hcl 500 Mg Tablet PO 500 mg BID ANA Administration Methadone HCl 50 mg 10/14/20 09:15 10/18/20 08:07 Methadone Hcl 1 Mg/0.1 Ml Oral.Conc PO 50 mg DAILY ANA Administration Montelukast Sodium 10 mg 10/14/20 09:00 10/18/20 08:07 Montelukast Sodium 10 Mg Tablet PO 10 mg DAILY ANA Administration Nicotine 21 mg 10/15/20 12:00 10/18/20 08:07 Nicotine 21 Mg Patch.Td24 TRANSDERMA 21 mg DAILY ANA Administration Nicotine Polacrilex 2 mg 10/14/20 12:34 10/17/20 12:57 Nicotine Polacrilex 2 Mg Gum BUCCAL 2 mg Q2H PRN Administration Nicotine Cravings Omeprazole 20 mg 10/14/20 09:00 10/18/20 08:08 Omeprazole 20 Mg Capsule.Dr PO 20 mg DAILY ANA Administration Ondansetron HCl 4 mg 10/14/20 01:20 Ondansetron Hcl 4 Mg/2 Ml Vial IVPUSH Q8H PRN Nausea and Vomiting Oxycodone HCl 5 mg 10/13/20 23:57 10/18/20 08:06 Oxycodone Hcl Immed Release 5 Mg Tablet PO 5 mg Q6H PRN Administration Pain, Severe (Pain Scale 7-10) Sodium Chloride 3 ml 10/14/20 01:20 10/18/20 08:07 0.9 % Sodium Chloride Flush 3 Ml Syringe IVFLUSH 3 ml QSHIFT ANA Administration Zolpidem Tartrate 10 mg 10/14/20 06:51 Zolpidem Tartrate 5 Mg Tablet PO BEDTIME PRN Sleep Labs CBC & Chem 7: 10/14/20 05:21 10/18/20 06:02 Labs: Laboratory Results - last 24 hr 10/17/20 10/17/20 10/17/20 12:26 16:05 20:16 VBG pH 7.40 VBG pCO2 44 VBG pO2 64 VBG HCO3 28 H VBG O2 Saturation 90.0 VBG Base Excess 2.8 Anion Gap Estim Creat Clear Calc Estimated GFR POC Glucose 224 H 243 H Random Glucose Calcium 10/18/20 10/18/20 06:02 07:53 VBG pH VBG pCO2 VBG pO2 VBG HCO3 VBG O2 Saturation VBG Base Excess Anion Gap 9 L Estim Creat Clear Calc 92.7 Estimated GFR > 60 POC Glucose 304 H Random Glucose 285 H Calcium 8.8 D Assessment and Plan (1) Acute and chronic respiratory failure with hypoxia: Status: Acute (2) COPD exacerbation: Status: Acute (3) Hyperlipidemia, unspecified: Status: Acute (4) Type 2 diabetes mellitus with unspecified complications: Status: Acute (5) Tobacco dependence: Status: Acute Assessment and Plan: 50-year-old female with past medical history of COPD/asthma overlap syndrome who presents to the hospital with shortness of breath # acute on chronic hypoxic and hypercarbic respiratory failure due to acute COPD/asthma exacerbation ?? Significant improvement in shortness of breath,no chest tightness , oxygen dependent 2 L at home and on CPAP , oxygenation? improved,REY 94% on 2 L of oxygen, ?? no evidence of pneumonia, COVID-19 negative, PE negative ???Will DC IV steroids 60 mg Q 8h, change to prednisone 40 mg daily, change IV azithromycin to by mouth day /, continue cough medication, DuoNeb p.r.n. and scheduled, continue Singulair, Claritin, pulmicort inhalers ?? Continue BiPAP at night and daytime with naps ?? VBG improved pH 7.4,pco2 44,o2 90 ?? As per patient she is close to baseline , ambulate she only short distances at home, recommend to be out of bed to chair and ambulate today and will be discharged home if remains stable tomorrow on by mouth prednisone and will resume all home inhalers # metabolic alkalosis improving continue Diamox 250 b.i.d. bicarb improved from 43-35 will discharge home on Diamox # hypogammaglobulinemia on IVIG infusion continue as out patient # tobacco use disorder - continue nicotine patch 21 mg/d, patient minimize use of tobacco # diabetes - blood sugars elevated due to steroid, continue home insulin, metformin, insulin sliding scale dose adjusted, and diabetic diet # hypertension - stable, continue home medications Lisinopril and Cardizem # history of substance abuse continue methadone DVT prophylaxis:? Heparin subQ Quality Stroke Does the patient have a stroke diagnosis?: No VTE Prior VTE?: No VTE Risk Level:: Medical - moderate - high VTE Device Contraindication: Treatment Not Indicated VTE Drug Contraindication: N/A - Med Ordered
[2020-10-18 11:55] LABS: Glucose, Whole Blood 253 mg/dL (60-115)
[2020-10-18] MEDS: Azithromycin 500 MG TABLET PO (11:56)
[2020-10-18] MEDS: predniSONE 20 MG TABLET 40 MG PO (11:56)
[2020-10-18 16:17] LABS: Glucose, Whole Blood 205 mg/dL (60-115)
[2020-10-18 20:13] LABS: Glucose, Whole Blood 293 mg/dL (60-115)
[2020-10-18] MEDS: Insulin Glargine,Hum.rec.anlog 100 UNIT/ML 10 ML VIAL 45 UNIT SUBCUT (20:44)
[2020-10-19] VITALS: BP 118/78; PULSE 88; RESP 16; TEMP 36.3; O2SAT 100
[2020-10-19 04:00] VITALS: BP 122/69; PULSE 95; RESP 16; TEMP 36.3; O2SAT 95
[2020-10-19] MEDS: Albuterol/Iprat 2.5/0.5MG 3 ML AMPUL.NEB INHALE ×2 (07:36→11:16)
[2020-10-19 07:37] VITALS: PULSE 84; RESP 16; O2SAT 97
[2020-10-19 07:44] VITALS: BP 140/63; PULSE 77; RESP 18; TEMP 36.1; O2SAT 98
[2020-10-19 07:51] LABS: Glucose, Whole Blood 201 mg/dL (60-115)
[2020-10-19] MEDS: Nicotine 21 MG PATCH.TD24 TRANSDERMA (08:21)
[2020-10-19] MEDS: Budesonide 180 MCG AER.POW.BA 2 PUFF INHALE (08:21)
[2020-10-19] MEDS: acetaZOLAMIDE 250 MG TABLET PO (08:22)
[2020-10-19] MEDS: Loratadine 10 MG TABLET PO (08:22)
[2020-10-19] MEDS: Insulin Lispro 100 UNIT/ML 3 ML VIAL SUBCUT (08:22)
[2020-10-19] MEDS: predniSONE 20 MG TABLET 40 MG PO (08:22)
[2020-10-19] MEDS: Montelukast Sodium 10 MG TABLET PO (08:22)
[2020-10-19] MEDS: dilTIAZem HCL CD 300 MG CAP.ER.24H PO (08:22)
[2020-10-19] MEDS: 0.9 % Sodium Chloride Flush 3 ML SYRINGE IVFLUSH (08:22)
[2020-10-19] MEDS: Gabapentin 100 MG CAPSULE PO (08:23)
[2020-10-19] MEDS: Omeprazole 20 MG CAPSULE.DR PO (08:23)
[2020-10-19] MEDS: lamoTRIgine 25 MG TABLET 75 MG PO (08:23)
[2020-10-19] MEDS: Docusate Sodium 100 MG CAPSULE PO (08:23)
[2020-10-19] MEDS: metFORMIN HCl 500 MG TABLET PO (08:23)
[2020-10-19] MEDS: clonazePAM 1 MG TABLET PO (08:24)
--- NOTE | 2020-10-19 09:59 | P.DS_ITS ---
DS: Providers Provider Date of Service: 10/19/20 Date of admission: 10/13/20 23:27 Primary care physician: Kelli Benavides MD Consults: 10/15/20 10:14 Consult to Pulmonology Routine Consulting Provider: Allan Brito Reason for consultation: copd exac/hypercarbia Has provider been notified: No DS: Diagnosis Discharge Diagnosis (1) Acute and chronic respiratory failure with hypoxia: Status: Resolved (2) COPD exacerbation: Status: Resolved (3) Hyperlipidemia, unspecified: (4) Type 2 diabetes mellitus with unspecified complications: (5) Tobacco dependence: DS: Summary Hospital Course Hospital Course: 50-year-old female with past medical history of asthma/COPD overlap syndrome, chronic respiratory failure on 2 L of oxygen at home, essential hypertension, HLD, type 2 diabetes who presents to the hospital complaints of shortness of breath and chest pain that is exacerbated by deep inspiration and cough.? Developed her symptoms about 3 days ago, she was started on IV antibiotics and steroids as patient improvement.? She reports cough, sputum production, she uses 2.5 L at improvement in her symptoms, she denies any abdominal pain nausea or vomiting, no diarrhea constipation, no urinary symptoms.? She denies any numbness tingling or weakness. Patient reports chronic lower extremity edema that has not changed, chronic orthopnea that has not changed, no PND. On arrival to the ED patient hemodynamically stable with no significant abnormal vitals, patient found to be hypoxic on 2 L of oxygen desatting to 85 while talking to me.? Patient's O2 increased to 4 L, currently satting 89-90%. Lab significant for WBC count of hemoglobin of 12.3, labs otherwise unremarkable, pH of 7.3, CO2 of 103, Given her chest pain patient underwent CT angiogram that showed no PE, no dissection or aneurysm and no pneumonia Past medical history as below and confirmed with patient Hospital course: # acute on chronic hypoxic and hypercarbic respiratory failure due to acute COPD/asthma exacerbation, she is on O2 at home and uses NIV, she was treated with IV Solumedrol, o2 and bronchodilators by Neb. Work up included negative covid, negative PE by CTA. She was evaluated by Dr. Brito crm business analyst and over the course of hospitalization she has singificnatly improved and has been transitioned to oral Prednisone. She is advised to use CPAP at night and during the day if napping. Blood gas has improved. Will Surjit prednisone slowly # metabolic alkalosis--Treated with Diamox # hypogammaglobulinemia on IVIG infusion continue as out patient # tobacco use disorder - continue nicotine patch 21 mg/d, patient minimize use of tobacco, advised complete cessation # diabetes--to resume home meds including metfomin, Lantus # hypertension - stable, continue home medications Lisinopril and Cardizem # history of substance abuse continue methadone Time Spent with Patient Time attestation: Total time spent providing and/or coordinating discharge services: Discharge coordination time: Greater than 30 minutes Quality: Stroke Does the patient have a stroke diagnosis?: No Physical Exam Vital Signs: Vital Signs: Last Vital Signs Temp 97.0 F 10/19/20 07:44 Pulse 77 10/19/20 07:44 Resp 18 10/19/20 07:44 BP 140/63 H 10/19/20 07:44 Pulse Ox 98 10/19/20 07:44 Oxygen Flow Rate 2 10/13/20 19:41 Body Mass Index 40.0 DS: Data Data Completed and Pending Labs on day of discharge: Laboratory Results - last 24 hr 10/18/20 10/18/20 10/18/20 11:21 15:12 20:04 POC Glucose 253 H 205 H 293 H 10/19/20 07:44 POC Glucose 201 H Discharge Plan Discharge Anticipated Discharge Date/Time: 10/19/20 10:14 Patient Disposition: Home Health Service Discharge Diagnosis: COPD exacergbation Referrals: [facility] [Outside] - 1 Week Kelli Benvaides MD [Primary Care Provider] - 11/02/20 2:00 pm (You have a primary care follow up appointment on , November 02 at 2:00 pm. Please call your doctor's office if you need to reschedule. ) Discharge Medications: New prednisone 10 mg tablet See Taper mg PO DAILY Qty: 20 RF: 0 Continued Robitussin Cough-Chest Tristan DM 5-50 mg/5 mL liquid 20 ml PO Q4-6H PRN (Reason: cough) 14 Days Qty: 300 RF: 5 tiotropium bromide [Spiriva with HandiHaler] 18 mcg capsule, w/inhalation device 1 cap inhalation DAILY Qty: 30 RF: 11 prednisone 10 mg tablet 10 mg PO BID 30 Days Qty: 60 RF: 5 immun glob I-jus-wmmz-IgA 0-50 10 gram recon soln 40 g IV Q4W Qty: 2 RF: 12 gabapentin 100 mg capsule 1 cap PO BID RF: 0 Lantus U-100 Insulin 100 unit/mL solution 45 unit subcut BEDTIME RF: 0 montelukast 10 mg tablet 10 mg PO DAILY RF: 0 albuterol sulfate [ProAir HFA] 90 mcg/actuation HFA aerosol inhaler 2 puff inhalation Q6H PRN (Reason: Shortness Of Breath Or Wheezing) RF: 0 loratadine [Claritin] 10 mg tablet 10 mg PO DAILY RF: 0 metformin 500 mg tablet 500 mg PO BID RF: 0 pantoprazole 40 mg tablet,delayed release (DR/EC) 40 mg PO DAILY RF: 0 lisinopril 40 mg tablet 40 mg PO DAILY RF: 0 zolpidem [Ambien] 10 mg tablet 10 mg PO BEDTIME PRN (Reason: Sleep) RF: 0 methadone 10 mg tablet 49 mg PO DAILY RF: 0 lamotrigine [Lamictal] 150 mg tablet 75 mg PO BID RF: 0 clonazepam 1 mg tablet 1 mg PO BID RF: 0 Brovana 15 mcg/2 mL solution for nebulization 2 ml inhalation Q12H 30 Days Qty: 120 RF: 11 budesonide 0.5 mg/2 mL suspension for nebulization 0.5 mg inhalation BID Qty: 120 RF: 11 No Action ipratropium-albuterol 0.5 mg-3 mg(2.5 mg base)/3 mL solution for nebulization 3 ml inhalation Q4H PRN (Reason: for wheezing) Qty: 540 RF: 6 diltiazem HCl [Tiadylt ER] 360 mg capsule,extended release 24 hr 1 cap PO DAILY RF: 0 chlorthalidone 25 mg tablet 1 tab PO DAILY RF: 0 insulin lispro [Humalog U-100 Insulin] 100 unit/mL solution 4 unit subcut DAILY RF: 0 Arnoldo-24 400 mg capsule,extended release 24hr 2 cap PO DAILY RF: 0 rosuvastatin 5 mg tablet 1 tab PO BEDTIME RF: 0 Daliresp 500 mcg tablet 1 tab PO DAILY RF: 0 prednisone 10 mg tablet See Taper mg PO DAILY Qty: 36 RF: 0 docusate sodium 100 mg capsule 100 mg PO DAILY Qty: 30 RF: 3 sennosides [Natural Senna Laxative] 8.6 mg tablet 8.6 mg PO BEDTIME PRN (Reason: constipation) Qty: 30 RF: 3 nicotine (polacrilex) 2 mg gum 2 mg buccal Q3H PRN (Reason: nicotine cravings) 30 Days Qty: 100 RF: 3 Discharge Orders: Discharge Order (Routine); Ordered 10/19/20 Ordered By: Joao Meehan Diet: advance to usual diet and diabetic diet Activity on Discharge: As tolerated Stand Alone Forms: Patient Portal Discharge page Care Plan Goals: prevent rehospitalization Health Concerns: copd, chronic respiratory failure Plan of Treatment: Take prednisone as directed and follow up with your doctor use CPAP as directed Assessment: As above Discharge Date/Time: 10/19/20 13:44
[2020-10-19 11:38] VITALS: BP 105/62; PULSE 84; RESP 18; TEMP 36.7; O2SAT 97
[2020-10-19 11:45] LABS: Glucose, Whole Blood 148 mg/dL (60-115)
--- NOTE | 2020-10-19 12:05 | MHC.CM.PN ---
PATIENT IS RETURNING HOME WITH RESUMPTION OF HER [facility]. [facility]ENCY MADE AWARE OF PATIENT DISCHARGE VIA [employer].
[2020-10-19] MEDS: Azithromycin 500 MG TABLET PO (12:10)
== END 2020-10-19 13:44 | disposition home health service (06) | DRG 140 ==
LOC: HO.ED 23:37 → HO.EDOVER 23:58 → HO.S3 10-14 01:04
PROVIDERS: Hospitalist; Admitting Provider Internal Medicine; Emergency Provider Student in an Organized Health Care Education/Training Program; PCP Family Medicine; Visit Provider Internal Medicine
DX: J44.1 Chronic obstructive pulmonary disease with (acute) exacerbation (principal); J96.21 Acute and chronic respiratory failure with hypoxia; E87.3 Alkalosis; D80.1 Nonfamilial hypogammaglobulinemia; Z99.81 Dependence on supplemental oxygen; J45.901 Unspecified asthma with (acute) exacerbation; F11.20 Opioid dependence, uncomplicated; F17.210 Nicotine dependence, cigarettes, uncomplicated; I10 Essential (primary) hypertension; E11.9 Type 2 diabetes mellitus without complications; Z20.822 Contact with and (suspected) exposure to COVID-19; Z71.6 Tobacco abuse counseling; Z79.4 Long term (current) use of insulin; Z79.899 Other long term (current) drug therapy
CPT/HCPCS: 36415; 36600; 71045; 71275; 80048; 82140; 82803; 82947; 83605; 83880; 84484; 85025; 87040; 87635; 93005; 94640; 94644; 94660; 96365; 96366; 96375; 99285; J0456; J1956; J2920; J2930; Q9967

== ENCOUNTER 2020-11-13 09:50 | Outpatient (REF) | payer MEDICAID, SELFPAY | END 2020-11-13 09:51 | disposition home or self-care (01) | LOC: HO.MDS 09:50 | PROVIDERS: Visit Provider Hospitalist | DX: D80.1 Nonfamilial hypogammaglobulinemia (principal) | CPT/HCPCS: 96365; 96366; J1569 ==

== ENCOUNTER 2020-11-15 23:37 | Inpatient (IN) | payer MEDICAID, SELFPAY ==
--- NOTE | ~2020-11-15 | XR_ITS ---
EXAMINATION: XR CHEST CLINICAL INFORMATION: Shortness of breath COMPARISON: 10/13/2020 TECHNIQUE: Frontal view of the chest was obtained. FINDINGS: Lungs are clear. No focal consolidation or mass. Normal pulmonary vascularity. No pleural effusion or pneumothorax. Normal heart size. No acute osseous abnormality. XR/XR chest 1V IMPRESSION: No acute pulmonary disease.
--- NOTE | 2020-11-15 23:45 | ECG_ITS ---
Test Reason : SOB Blood Pressure : / mmHG Vent. Rate : 087 BPM Atrial Rate : 087 BPM P-R Int : 138 ms QRS Dur : 076 ms QT Int : 366 ms P-R-T Axes : 070 042 060 degrees QTc Int : 440 ms Normal sinus rhythm Normal ECG When compared with ECG of 13-OCT-2020 20:35, No significant change was found Referred By: Benedicto Padgett Electronically Signed By:CANDI VARGAS
--- NOTE | 2020-11-15 23:50 | ED.SOB ---
HPI - SOB/Dyspnea General Chief Complaint: Asthma Stated Complaint: asthma exacerbation Time Seen by Provider: 11/15/20 23:45 Source: patient and EMS Mode of arrival: EMS Limitations: no limitations History of Present Illness HPI Narrative: Patient history of asthma/COPD overlap syndrome, chronic respiratory failure on 2 L oxygen at home, essential hypertension, type 2 diabetes, morbid obesity with frequent ED visits and hospitalizations for shortness of breath for last 2 days, not vaccinated against COVID-19, saturating 90% at room air coughing frequently no fever no chills , patient uses BiPAP in the night patient is on prednisone 10 mg twice daily discharged on 10/19 for same Related Data Home Medications Medication Instructions Recorded Confirmed albuterol sulfate 90 mcg/actuation 2 puff INHALATION Q6H PRN 12/30/19 11/16/20 aerosol inhaler (ProAir HFA) clonazepam 1 mg tablet 1 mg PO BID 12/30/19 11/16/20 diltiazem HCl 300 mg capsule,24 300 mg PO DAILY 12/30/19 11/16/20 hr,extended release lamotrigine 150 mg tablet 75 mg PO BID 12/30/19 10/14/20 (Lamictal) lisinopril 40 mg tablet 40 mg PO DAILY 12/30/19 11/16/20 loratadine 10 mg tablet (Claritin) 10 mg PO DAILY 12/30/19 11/16/20 metformin 500 mg tablet 500 mg PO BID 12/30/19 11/16/20 methadone 10 mg tablet 49 mg PO DAILY 12/30/19 11/16/20 montelukast 10 mg tablet 10 mg PO DAILY 12/30/19 11/16/20 pantoprazole 40 mg tablet,delayed 40 mg PO DAILY 12/30/19 11/16/20 release roflumilast 500 mcg tablet 500 mcg PO DAILY 12/30/19 09/20/20 (Daliresp) zolpidem 10 mg tablet (Ambien) 10 mg PO BEDTIME PRN 12/30/19 11/16/20 gabapentin 100 mg capsule 1 cap PO BID 10/14/20 11/16/20 insulin glargine 100 unit/mL 45 unit SUBCUT BEDTIME 10/14/20 11/16/20 subcutaneous solution (Lantus U-100 Insulin) Previous Rx's Medication Instructions Recorded dextromethorphan 5 mg-guaifenesin 20 ml PO Q4-6H PRN 14 Days #300 ml 03/20/20 50 mg/5 mL oral liquid (Robitussin Cough-Chest Congestion DM) tiotropium bromide 18 mcg capsule 1 cap INHALATION DAILY #30 inh 05/11/20 with inhalation device (Spiriva with HandiHaler) docusate sodium 100 mg capsule 100 mg PO DAILY #30 cap 05/29/20 prednisone 10 mg tablet 10 mg PO BID 30 Days #60 tab 06/14/20 immune glob,gamma(IgG) 10 40 g IV Q4W #2 ea 06/16/20 [id number] 0 to 50 mcg/mL IV solution sennosides 8.6 mg tablet (Natural 8.6 mg PO BEDTIME PRN #30 tab 06/19/20 Senna Laxative) arformoterol 15 mcg/2 mL solution 2 ml INHALATION Q12H 30 Days #120 09/20/20 for nebulization (Brovana) ml budesonide 0.5 mg/2 mL suspension 0.5 mg INHALATION BID #120 ml 09/20/20 for nebulization prednisone 10 mg tablet See Taper PO DAILY #20 tab 10/19/20 ipratropium 0.5 mg-albuterol 3 mg 3 ml INHALATION Q4H PRN #540 ml 10/30/20 (2.5 mg base)/3 mL nebulization soln Allergies Allergy/AdvReac Type Severity Reaction Status Date / Time No Known Allergies Allergy Verified 11/16/20 00:32 [No Known Allergies*] Review of Systems Review of Systems: Yes all other systems are reviewed and are negative PMFSH Past Medical History Medical History Asthma-COPD overlap syndrome Chronic respiratory failure Essential hypertension Hyperlipidemia, unspecified Hypogammaglobulinemia Tachycardia Tobacco dependence Type 2 diabetes mellitus with unspecified complications Surgical History H/O tubal ligation Family History Family History Father Diabetes Other Asthma Social History Social History Household Members: Family Housing: Unknown / Unable to assess Do you presently have visiting nurse or other home services: No Alcohol intake: never Patient Tobacco Use Status: Current someday Tobacco user Years Smoked: 20 years Advance Directives: No Advance Directives Information Provided: Yes service: No Current occupational status: disabled Physical Exam Vital Signs: Vital Signs: Last Vital Signs Temp 98.6 F 11/16/20 00:32 Pulse 98 11/16/20 00:42 Resp 22 H 11/16/20 00:32 BP 132/78 11/16/20 00:32 Pulse Ox 97 11/16/20 00:38 Body Mass Index 39.6 Appearance: Alert. Oriented X3. Obese in moderate respiratory distress Eyes: No pallor or icterus ENT: Pharynx normal. Oral Mucosa moist Neck: Normal inspection. Neck supple. CVS: Normal heart rate and rhythm. Pulses normal. Respiratory: Moderate respiratory distress prolonged expiration with expiratory wheezing and rhonchi no crackles equal air entry Abdomen: Soft and nontender. Bowel sounds are present, no mass palpable, Skin: Skin warm and dry. Normal skin color. Normal skin turgor. Extremities: No lower extremity edema. No calf tenderness Neuro: Oriented X 3. No focal deficit MDM - SOB/Dyspnea MDM Narrative Medical decision making narrative: Patient asthma/COPD overlap on home oxygen COVID negative chest x-ray negative came for increased shortness of breath will give her nebulizing treatment and IV steroids observed for some time planning to admit Differential Diagnosis Differential diagnosis: Likely asthma with exacerbation Medical Records Attestation: I reviewed the patient's medical records. Lab Data Attestation: I reviewed the patient's lab results. Result diagrams: 11/16/20 00:25 11/16/20 00:25 Labs: Lab Results 11/16/20 11/16/20 11/16/20 Range/Units 00:25 00:25 00:25 WBC 13.0 H (4.8-10.8) X10*3/uL RBC 4.13 L (4.20-5.50) X10*6/uL Hgb 12.5 (12.0-16.0) g/dl Hct 41.8 (37-47) % MCV 101.2 H (80-98) fL MCH 30.3 (27.0-33.0) pg MCHC 29.9 L (31.0-35.0) g/dl RDW 13.8 (11.0-16.0) % Plt Count 253 (160-400) X10*3/uL MPV 8.9 L (9.4-12.3) fL Immature Gran % (Auto) 1.4 H (0.0-0.4) % Neut % (Auto) 79.3 H (45-73) % Lymph % (Auto) 11.5 L (20-40) % [place] % (Auto) 7.5 (2-11) % Eos % (Auto) 0.1 (0-4) % Baso % (Auto) 0.2 (0-2) % Lymph # (Auto) 1.5 (1.2-4.9) X10*3/uL [place] # (Auto) 1.0 (0.1-1.2) X10*3/uL Eos # (Auto) 0.0 (0.0-0.4) X10*3/uL Baso # (Auto) 0.0 (0.0-0.2) X10*3/uL Abs Immat Gran (auto) 0.18 H (0.00-0.03) X10*3/uL Absolute Neuts (auto) 10.3 H (2.0-8.3) X10*3/uL Absolute Nucleated RBC 0.000 (0.0-0.012) X10*3/uL Nucleated RBC % (auto) 0.0 (0.0-0.2) /100WBC Sodium 143 (135-145) mmol/L Potassium 4.6 D (3.3-5.1) mmol/L Chloride 89 L (96-108) mmol/L Carbon Dioxide 47 H* D (22-29) mmol/L Anion Gap 12 (12-20) BUN 16 D (9-16) mg/dL Creatinine 0.67 (0.5-1.4) mg/dL Estim Creat Clear Calc 105.8 Estimated GFR > 60 Random Glucose 141 H D (60-115) mg/dL Calcium 10.3 H D (8.4-10.2) mg/dL COVID-19 (PAPO) Negative (Negative) COVID-19 Clin Com See Note ECG Data Attestation: I personally reviewed and interpreted this ECG as follows: Interpretation: Normal sinus rhythm heart rate 87 beats per minute normal intervals normal axis no acute ST wave changes no acute ischemia Discharge Plan Discharge Clinical Impression: Metabolic alkalosis with respiratory acidosis Asthma with acute exacerbation Qualifiers: Asthma severity: severe Asthma persistence: persistent Qualified Code(s): J45.51 - Severe persistent asthma with (acute) exacerbation Patient Disposition: Admitted As Inpatient
[2020-11-16] VITALS (18 sets, daily range): BP systolic 132–171; BP diastolic 66–89; PULSE 84–103; RESP 15–26; TEMP 35.8–37.2; O2SAT 89–100; BMI 39.6
[2020-11-16 00:32] LABS: MANUAL DIFF FLAG NO
[2020-11-16 00:34] LABS: Basophils Percent Auto 0.2 % (0-2); Eosinophils Percent Auto 0.1 % (0-4); Hematocrit 41.8 % (37-47); Hemoglobin 12.5 g/dl (12.0-16.0); Imm Gran Abs Auto 0.18 X10*3/uL (0.00-0.03); Imm Gran Pct Auto 1.4 % (0.0-0.4); Lymphocytes Absolute Auto 1.5 X10*3/uL (1.2-4.9); Lymphocytes Percent Auto 11.5 % (20-40); Mean Corpuscular HGB Conc 29.9 g/dl (31.0-35.0); Mean Corpuscular Hemoglobin 30.3 pg (27.0-33.0); Mean Corpuscular Volume 101.2 fL (80-98); Mean Platelet Volume 8.9 fL (9.4-12.3); Monocytes Percent Auto 7.5 % (2-11); Neutrophils Absolute Auto 10.3 X10*3/uL (2.0-8.3); Neutrophils Percent Auto 79.3 % (45-73); Platelet Count 253 X10*3/uL (160-400); Red Blood Count 4.13 X10*6/uL (4.20-5.50); Red Cell Distribution Width 13.8 % (11.0-16.0)
[2020-11-16] MEDS: Albuterol Sulfate (0.083%) 2.5 MG/3 ML VIAL.NEB 5 MG INHALE (00:37)
[2020-11-16] MEDS: dexAMETHasone sod phosphate 10 MG/ML VIAL IVPUSH (00:37)
[2020-11-16] MEDS: 0.9 % Sodium Chloride 1,000 ML 999 ML IVCONT ×2 (00:38→03:06)
[2020-11-16 00:47] LABS: COVID-19 Test Negative (Negative); IDNOW Serial# 9DD0AD1C
[2020-11-16 00:58] LABS: Anion Gap 12 (12-20); Blood Urea Nitrogen 16 mg/dL (9-16); Calcium 10.3 mg/dL (8.4-10.2); Carbon Dioxide 47 mmol/L (22-29); Chloride 89 mmol/L (96-108); Creatinine Clr Calc Pharmacy 105.8; Estimated Glomerular Filt Rate > 60; Glucose Random 141 mg/dL (60-115); Potassium 4.6 mmol/L (3.3-5.1); Sodium 143 mmol/L (135-145)
--- NOTE | 2020-11-16 01:04 | PC.NURSE ---
Reported to provider and attending nurse.
--- NOTE | 2020-11-16 01:17 | P.HPHOSP_ITS ---
History of Present Illness Date of Service: 11/16/20 Chief Complaint: Shortness of breath 50-year-old female with a past medical history of hypertension, hyperlipidemia, diabetes, asthma/COPD on chronic home steroids and roflumilast, chronic respiratory failure on home oxygen and BiPAP at night tobacco dependence, hypogammaglobulinemia, opiate dependence on methadone, mood disorder presented to the hospital with a chief complaint of shortness of breath. Patient reported a past couple days he has been having shortness of breath which has been gradually worsening issues with a cough; denies any sputum production. Denies any fevers. Denies any chest pain palpitations lightheadedness or dizziness. Denies any GI or symptoms. Review of all other systems is negative except mentioned above ER course: Per ER team patient noted to be in mild respiratory distress with poor longer wheezing; COVID-19 was negative; given nebulizations, steroids. Admitted to the hospital for further management. [facility] Medical History Asthma-COPD overlap syndrome Chronic respiratory failure Essential hypertension Hyperlipidemia, unspecified Hypogammaglobulinemia Tachycardia Tobacco dependence Type 2 diabetes mellitus with unspecified complications Family History Father Diabetes Other Asthma Surgical History H/O tubal ligation Social History Household Members: Family Housing: Unknown / Unable to assess Do you presently have visiting nurse or other home services: No Alcohol intake: never Patient Tobacco Use Status: Current someday Tobacco user Years Smoked: 20 years Advance Directives: No Advance Directives Information Provided: Yes service: No Current occupational status: disabled Meds Allergies Allergy/AdvReac Type Severity Reaction Status Date / Time No Known Allergies Allergy Verified 11/16/20 00:32 [No Known Allergies*] Active Medications: Current Medications Generic Name Dose Route Start Last Admin Trade Name Freq PRN Reason Stop Dose Admin Acetaminophen 650 mg 11/16/20 01:11 Acetaminophen 325 Mg Tablet PO Q6H PRN Pain, Mild (Pain Scale 1-3) Albuterol Sulfate 2 puff 11/16/20 01:14 Albuterol Sulfate 90 Mcg 8 Gm Inhaler INHALE Q6H PRN Shortness Of Breath Or Wheezing Albuterol/Ipratropium 3 ml 11/16/20 08:00 Albuterol/Iprat 2.5/0.5mg 3 Ml Ampul.Neb INHALE RQ4H WHILE AWAKE ON LICENSE OF [facility] Azithromycin 500 mg 11/16/20 01:15 Azithromycin 500 Mg Tablet PO Q24H ON LICENSE OF [facility] Clonazepam 1 mg 11/16/20 09:00 Clonazepam 1 Mg Tablet PO BID ON LICENSE OF [facility] Dextrose 25 gm 11/16/20 01:11 Dextrose 50 % 25 Gm/50 Ml Vial IVPUSH Q15M PRN per Hypoglycemia Standing Ord. Protocol Enoxaparin Sodium 40 mg 11/16/20 01:15 Enoxaparin Sodium 40 Mg/0.4 Ml Syringe SUBCUT Q24H ON LICENSE OF [facility] Glucose 15 gm 11/16/20 01:11 Glucose Gel 15 Gm Gel..Gram. PO Q15M PRN per Hypoglycemia Standing Ord. Protocol Sodium Chloride 1,000 mls @ 999 mls/hr 11/16/20 01:15 Ns IVCONT 11/16/20 02:15 .Q1H1M ON LICENSE OF [facility] Insulin Glargine 30 unit 11/16/20 21:00 Insulin Glargine,Hum.Rec.Anlog 100 Unit/Ml 10 Ml Vial SUBCUT BEDTIME ON LICENSE OF [facility] Insulin Human Lispro 0 unit 11/16/20 07:30 Insulin Lispro 100 Unit/Ml 3 Ml Vial SUBCUT QIDACHS ON LICENSE OF [facility] Protocol Melatonin 6 mg 11/16/20 01:11 Melatonin 3 Mg Tablet PO BEDTIME PRN Insomnia Methylprednisolone Sodium Succinate 40 mg 11/16/20 01:15 Methylprednisolone Sod Succ 40 Mg/Ml Vial IVPUSH Q6H ON LICENSE OF [facility] Non-Formulary Medication 2 ml 11/16/20 01:15 Arformoterol [Brovana] INHALE Q12H ON LICENSE OF [facility] Non-Formulary Medication 0.5 mg 11/16/20 09:00 Budesonide INHALE BID ON LICENSE OF [facility] Senna 17.2 mg 11/16/20 01:11 Sennosides 8.6 Mg Tablet PO BEDTIME PRN Constipation Sodium Chloride 3 ml 11/16/20 08:00 0.9 % Sodium Chloride Flush 3 Ml Syringe IVFLUSH QSHIFT ON LICENSE OF [facility] Home Medications Medication Instructions Recorded Confirmed Last Taken Type albuterol sulfate 90 mcg/actuation 2 puff INHALATION Q6H PRN 12/30/19 11/16/20 11/16/20 History aerosol inhaler (ProAir HFA) clonazepam 1 mg tablet 1 mg PO BID 12/30/19 11/16/20 11/16/20 History diltiazem HCl 300 mg capsule,24 300 mg PO DAILY 12/30/19 11/16/20 11/16/20 History hr,extended release lamotrigine 150 mg tablet 75 mg PO BID 12/30/19 10/14/20 1 Day Ago History (Lamictal) ~10/13/20 lisinopril 40 mg tablet 40 mg PO DAILY 12/30/19 11/16/20 11/16/20 History loratadine 10 mg tablet (Claritin) 10 mg PO DAILY 12/30/19 11/16/20 11/16/20 History metformin 500 mg tablet 500 mg PO BID 12/30/19 11/16/20 11/16/20 History methadone 10 mg tablet 49 mg PO DAILY 12/30/19 11/16/20 11/16/20 History montelukast 10 mg tablet 10 mg PO DAILY 12/30/19 11/16/20 11/16/20 History pantoprazole 40 mg tablet,delayed 40 mg PO DAILY 12/30/19 11/16/20 11/16/20 History release roflumilast 500 mcg tablet 500 mcg PO DAILY 12/30/19 09/20/20 Unknown History (Daliresp) zolpidem 10 mg tablet (Ambien) 10 mg PO BEDTIME PRN 12/30/19 11/16/20 11/16/20 History gabapentin 100 mg capsule 1 cap PO BID 10/14/20 11/16/20 11/16/20 History insulin glargine 100 unit/mL 45 unit SUBCUT BEDTIME 10/14/20 11/16/20 11/16/20 History subcutaneous solution (Lantus U-100 Insulin) Physical Exam Vital Signs and Narrative: Vital Signs: Last Vital Signs Temp 98.6 F 11/16/20 00:32 Pulse 98 11/16/20 00:42 Resp 22 H 11/16/20 00:32 BP 132/78 11/16/20 00:32 Pulse Ox 97 11/16/20 00:38 Body Mass Index 39.6 Gen: Appears be in no acute distress; speaks in full sentences HEENT: NCAT, Moist mucosa. Pulmonary: Bilateral wheezing noted CVS: Normal S1-S2 Abdomen: BS+, Soft, Nontender Extremities: Warm well perfused Neuro: Alert and awake. Results Labs CBC and Chem 7: 11/16/20 00:25 11/16/20 00:25 Labs: Laboratory Results - last 24 hr 11/16/20 11/16/20 11/16/20 00:25 00:25 00:25 MCV 101.2 H MCH 30.3 MCHC 29.9 L RDW 13.8 Plt Count 253 MPV 8.9 L Immature Gran % (Auto) 1.4 H Neut % (Auto) 79.3 H Lymph % (Auto) 11.5 L [place] % (Auto) 7.5 Eos % (Auto) 0.1 Baso % (Auto) 0.2 Lymph # (Auto) 1.5 [place] # (Auto) 1.0 Eos # (Auto) 0.0 Baso # (Auto) 0.0 Abs Immat Gran (auto) 0.18 H Absolute Neuts (auto) 10.3 H Absolute Nucleated RBC 0.000 Nucleated RBC % (auto) 0.0 Anion Gap 12 Estim Creat Clear Calc 105.8 Estimated GFR > 60 Random Glucose 141 H D Calcium 10.3 H D COVID-19 (PAPO) Negative COVID-19 Clin Com See Note Imaging Radiologist's Impressions: Impressions Chest X-Ray 11/15/20 23:46 IMPRESSION: No acute pulmonary disease. Assessment and Plan (1) Asthma with acute exacerbation: Qualifiers: Asthma persistence: persistent Asthma severity: severe Qualified Code(s): J45.51 - Severe persistent asthma with (acute) exacerbation Status: Acute 50-year-old female with a past medical history of hypertension, hyperlipidemia, diabetes, asthma/COPD on chronic home steroids and roflumilast, chronic respiratory failure on home oxygen and BiPAP at night tobacco dependence, hypogammaglobulinemia, opiate dependence on methadone, mood disorder presented to the hospital with a chief complaint of shortness of breath. Noted to be in mild asthma/COPD exacerbation. Admitted for further management. Asthma/COPD exacerbation: Continue DuoNeb standing and p.r.n.. Continue Solu- Medrol. Azithromycin. Pulmonology consult Continue home supplemental oxygen with a goal saturation of 93%. Continue home inhalers and roflumilast History of chronic respiratory failure: Patient's having tendency to retain CO2. Based on prior admissions patient standing around pCO2 of 70. Today patient's serum bicarb noted to be elevated to 47. Will obtain ABG. If noted acute on chronic hypercapnia-will give the patient on BiPAP. Patient uses BiPAP at night at home. Gentle fluids Diabetes: Will give the patient on Lantus 30 units and insulin sliding scale. Monitor fingerstick glucose and adjust insulins as needed. Opiate Dependence: pt on methadone; Addiction medicine consult History of hypertension/hyperlipidemia: Continue home medications. DVT prophylaxis: Lovenox Code status: Full code Quality Stroke Does the patient have a stroke diagnosis?: No VTE Prior VTE?: No VTE Risk Level:: Medical - moderate - high VTE Device Contraindication: Treatment Not Indicated VTE Drug Contraindication: N/A - Med Ordered
[2020-11-16] MEDS: Albuterol/Iprat 2.5/0.5MG 3 ML AMPUL.NEB INHALE ×6 (01:53→19:58)
--- NOTE | 2020-11-16 03:03 | PC.NURSE ---
PT NORMALLY ON CPAP AT HOME TO SLEEP AT NIGHT. PT PLACED ON BIPAP FOR COMFORT AND SLEEP. 18 OVER 6 AND 35%.
[2020-11-16 03:05] LABS: Venous Blood Gas Refer to POC result
[2020-11-16 03:06] LABS: VBG HCO3 52 mmol/L (22-26); VBG pCO2 76 mmHg; VBG pH 7.44 (7.32-7.43); VBG pO2 63 mmHg
[2020-11-16] MEDS: Enoxaparin Sodium 40 MG/0.4 ML SYRINGE SUBCUT (03:06)
[2020-11-16] MEDS: Azithromycin 500 MG TABLET PO (03:10)
--- NOTE | 2020-11-16 05:53 | PC.NURSE ---
PT ASSISTED TO BEDSIDE COMMODE. PT ALSO REQUESTING BREATHING TREATMET. RT CALLED. PT HAS BEEN SLEEPING FOR THE PAST SEVERAL HOURS, WHILE ON BIPAP.
[2020-11-16] MEDS: 0.9 % Sodium Chloride 1,000 ML 50 ML IVCONT (06:03)
[2020-11-16] MEDS: Omeprazole 20 MG CAPSULE.DR PO (06:03)
[2020-11-16] MEDS: methylPREDNISolone Sod Succ 40 MG/ML VIAL IVPUSH ×4 (06:03→23:58)
[2020-11-16 06:55] LABS: Basophils Percent Auto 0.3 % (0-2); Eosinophils Percent Auto 0.1 % (0-4); Hematocrit 42.4 % (37-47); Hemoglobin 12.5 g/dl (12.0-16.0); Imm Gran Pct Auto 2.9 % (0.0-0.4); Lymphocytes Absolute Auto 0.6 X10*3/uL (1.2-4.9); Lymphocytes Percent Auto 4.4 % (20-40); MANUAL DIFF FLAG SCAN; Mean Corpuscular HGB Conc 29.5 g/dl (31.0-35.0); Mean Corpuscular Hemoglobin 29.9 pg (27.0-33.0); Mean Corpuscular Volume 101.4 fL (80-98); Mean Platelet Volume 9.2 fL (9.4-12.3); Monocytes Absolute Auto 0.3 X10*3/uL (0.1-1.2); Monocytes Percent Auto 2.1 % (2-11); NRBC Pct Auto 0.1 /100WBC (0.0-0.2); Neutrophils Absolute Auto 12.6 X10*3/uL (2.0-8.3); Neutrophils Percent Auto 90.2 % (45-73); Platelet Count 223 X10*3/uL (160-400); Red Blood Count 4.18 X10*6/uL (4.20-5.50); Red Cell Distribution Width 13.7 % (11.0-16.0); SCAN SMEAR FLAG 1
[2020-11-16 07:13] LABS: Anion Gap 12 (12-20); Blood Urea Nitrogen 13 mg/dL (9-16); Calcium 9.3 mg/dL (8.4-10.2); Carbon Dioxide 39 mmol/L (22-29); Chloride 93 mmol/L (96-108); Creatinine Clr Calc Pharmacy 110.8; Estimated Glomerular Filt Rate > 60; Glucose Random 193 mg/dL (60-115); Sodium 139 mmol/L (135-145)
[2020-11-16 07:19] LABS: SLIDE REVIEW VERIFIED
[2020-11-16 07:40] LABS: Glucose, Whole Blood 206 mg/dL (60-115)
[2020-11-16] MEDS: Insulin Lispro 100 UNIT/ML 3 ML VIAL SUBCUT ×4 (08:34→20:27)
[2020-11-16] MEDS: 0.9 % Sodium Chloride Flush 3 ML SYRINGE IVFLUSH (08:35)
--- NOTE | 2020-11-16 08:45 | PC.NURSE ---
Pt removed off bipap, placed on 3lpm via nc, sat 93%, LS tight, resp called and will give treatment on floor. Pt to be transferred at this time. NS at 50ml/hr. Pt covered with Insulin as charted, accepted orange juice will eat rest of tray upstairs. Methadone dosage verification needed nurse who administers Wilda contact [phone], AReports given to Darline on med surg and Darline made aware Tabitha Ingram [phone]
[2020-11-16] MEDS: clonazePAM 1 MG TABLET PO ×2 (09:49→20:27)
[2020-11-16] MEDS: Montelukast Sodium 10 MG TABLET PO (09:49)
[2020-11-16] MEDS: Docusate Sodium 100 MG CAPSULE PO (09:49)
[2020-11-16] MEDS: dilTIAZem HCL CD 300 MG CAP.ER.24H PO (09:49)
[2020-11-16] MEDS: lisinopriL 40 MG TABLET PO (09:49)
[2020-11-16] MEDS: Loratadine 10 MG TABLET PO (09:49)
[2020-11-16] MEDS: Gabapentin 100 MG CAPSULE PO ×2 (09:50→20:27)
--- NOTE | 2020-11-16 10:00 | MHC.RECOVRN ---
T/w spoke with pt to obtain OTP information. Pt reports receiving 49 mg methadone daily through [facility] in [place]. T/w spoke with Pilar at [facility], confirmed dose. Pilar reports pt has [facility] services who slat pickler and dispense pts methadone. Pts nurse is Maggie, phone # [phone]. Methadone verification faxed to pharmacy. Pts RN, CM, and Heather Mann APRN, aware.
[2020-11-16] MEDS: methADONE HCl 20 MG/2 ML ORAL.CONC 50 MG PO (10:23)
--- NOTE | 2020-11-16 10:39 | CONS_ITS ---
DATE OF SERVICE: 11/16/2020 HISTORY OF PRESENT ILLNESS: Anju is a 50-year-old well-known patient here, who has been relatively stable in the past few months, but admitted last night with main complaint of increased shortness of breath and increased cough for a few days. She denies fever, chills, or chest pain. Has had mild nasal congestion with postnasal drip. The patient admits that she has been using all her regular medications. She also claims that she has been using her home ventilator Trilogy regularly about 6 to 7 hours every night and sometime during the daytime. The patient does have past history of advanced rather end-stage chronic obstructive pulmonary disease for the past many years and she has been admitted many times with acute exacerbations. In the past, she usually gets admitted when she is not using her home ventilator optimally. The patient is on maximum medical regimen for her chronic obstructive disease. The patient also has history of hypertension, hyperlipidemia, and also past history of opiate dependence. The patient is on methadone. She has history of mood disorder. REVIEW OF SYSTEMS: At this time reveals; 1. Marked generalized weakness. 2. Mild nasal congestion. 3. Slightly increased cough and shortness of breath. 4. No chest pain. 5. No acute GI symptoms. The patient denies smoking at this time. PHYSICAL EXAMINATION: GENERAL: This 50-year-old female is moderately obese, sitting up in the bed and appears to be relatively comfortable at this time. VITAL SIGNS: Temperature is 98.6, heart rate 98, respiratory rate is 24, blood pressure 132/78. THROAT: Clear. No evidence of thrush. NECK: No jugular venous distention. Trachea in midline and no lymphadenopathy. CHEST: Symmetrical. Percussion note resonant. Breath sounds are very distant on both sides with prolonged expiratory phase. The patient has a few expiratory wheezes in the back of the chest. CARDIAC: PMI is not palpable. Heart sounds are distant. Rhythm is regular. ABDOMEN: Moderately obese, but soft and nontender. EXTREMITIES: No edema or varicosities. DIAGNOSTIC DATA: Chest x-ray is reviewed and shows no acute abnormality. LABORATORY DATA: CBC: Hemoglobin is 12.5, WBC is 13.0, platelet count 253. COVID test is negative. Venous blood gas; pH 7.44, pCO2 of 76, and pO2 of 52. CLINICAL IMPRESSION: 1. Acute exacerbation of chronic obstructive pulmonary disease. 2. Chronic respiratory failure with hypoxemia and hypercapnia, slightly worse than before. The patient seems to have chronic compensated respiratory failure with bicarb level of 42. 3. There is no evidence of any acute pneumonia at this time. RECOMMENDATIONS: Continue treatment with her regular regimen and instead of Symbicort, she can be on Breo - 200 at this time. DuoNeb updrafts q.4 hours while awake. Course of azithromycin. Because of her decompensated respiratory failure, I would add Diamox 250 b.i.d. Solu-Medrol 40 mg IV q.8 hours for a few days and then she will be on prednisone taper. Use of home BiPAP at nighttime. Thank you very much for asking me to see this patient. We will be glad to follow her along. MD TREVA Viramontes/CELESTE / [phone]
--- NOTE | 2020-11-16 11:34 | PM.EVENT ---
Event Note Date of Service: 11/16/20 Event Note: Seen and examined this morning. Diminished lungs bilaterally, scattered wheeze. Reports compliance with BiPAP Admitted overnight for asthma/COPD exacerbation Continue breathing treatment, Solu-Medrol, azithromycin Pulmonary consult Chronic respiratory failure. Continue BiPAP DVT prophylaxis Lovenox Code status-full code Attending physician Dr. Jones
[2020-11-16 12:02] LABS: Glucose, Whole Blood 226 mg/dL (60-115)
--- NOTE | 2020-11-16 16:27 | MHC.CM.PN ---
CM MET WITH PT WITH THE ASSISTANCE OF [facility]. 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 [facility]. PT ACTIVE WITH [facility] M[facility]. PT REPORTS SHE HAS A BiPAP AND HOME O2 WELL A WALKER AT HOME. PT REPORTS SHE HAS A HCP ALREADY AND SAYS HER PCP IS FILOMENA HERNANDEZ. CURRENT DC PLAN IS HOME WITH RESUMPTION OF SERVICES RIDE VS CHAIR VAN
[2020-11-16 16:30] LABS: Glucose, Whole Blood 248 mg/dL (60-115)
[2020-11-16 20:12] LABS: Glucose, Whole Blood 277 mg/dL (60-115)
[2020-11-16] MEDS: acetaZOLAMIDE 250 MG TABLET PO (20:27)
[2020-11-16] MEDS: Insulin Glargine,Hum.rec.anlog 100 UNIT/ML 10 ML VIAL 30 UNIT SUBCUT (20:27)
[2020-11-17] VITALS (16 sets, daily range): BP systolic 135–170; BP diastolic 66–89; PULSE 77–93; RESP 16–23; TEMP 35.6–37; O2SAT 93–98
[2020-11-17] MEDS: Azithromycin 500 MG TABLET PO (01:46)
[2020-11-17] MEDS: Enoxaparin Sodium 40 MG/0.4 ML SYRINGE SUBCUT (01:46)
[2020-11-17] MEDS: Acetaminophen 325 MG TABLET 650 MG PO (01:50)
[2020-11-17] MEDS: Albuterol/Iprat 2.5/0.5MG 3 ML AMPUL.NEB INHALE ×6 (02:04→20:17)
--- NOTE | 2020-11-17 04:08 | PC.NURSE ---
pt's BP at 0400 was 170/87, Dr. Gil aware.
[2020-11-17] MEDS: 0.9 % Sodium Chloride 1,000 ML 50 ML IVCONT (05:59)
[2020-11-17] MEDS: methylPREDNISolone Sod Succ 40 MG/ML VIAL IVPUSH ×4 (06:00→23:25)
[2020-11-17] MEDS: Omeprazole 20 MG CAPSULE.DR PO (06:00)
[2020-11-17 07:22] LABS: Glucose, Whole Blood 240 mg/dL (60-115)
[2020-11-17] MEDS: Insulin Lispro 100 UNIT/ML 3 ML VIAL SUBCUT ×4 (07:27→21:08)
[2020-11-17 08:06] LABS: Hematocrit 43.8 % (37-47); Hemoglobin 13.6 g/dl (12.0-16.0); Mean Corpuscular HGB Conc 31.1 g/dl (31.0-35.0); Mean Corpuscular Hemoglobin 30.6 pg (27.0-33.0); Mean Corpuscular Volume 98.4 fL (80-98); Mean Platelet Volume 9.1 fL (9.4-12.3); NRBC Pct Auto 0.1 /100WBC (0.0-0.2); Platelet Count 245 X10*3/uL (160-400); Red Blood Count 4.45 X10*6/uL (4.20-5.50); Red Cell Distribution Width 13.3 % (11.0-16.0); White Blood Count 18.8 X10*3/uL (4.8-10.8)
[2020-11-17] MEDS: Fluticasone/Vilanterol 200/25 BLST.W.DEV 1 PUFF INHALE (08:19)
[2020-11-17 08:57] LABS: Anion Gap 11 (12-20); Blood Urea Nitrogen 21 mg/dL (9-16); Calcium 9.7 mg/dL (8.4-10.2); Carbon Dioxide 39 mmol/L (22-29); Chloride 93 mmol/L (96-108); Creatinine Clr Calc Pharmacy 105.8; Estimated Glomerular Filt Rate > 60; Glucose Random 207 mg/dL (60-115); Potassium 3.9 mmol/L (3.3-5.1); Sodium 139 mmol/L (135-145)
[2020-11-17] MEDS: Docusate Sodium 100 MG CAPSULE PO (09:12)
[2020-11-17] MEDS: Montelukast Sodium 10 MG TABLET PO (09:12)
[2020-11-17] MEDS: Gabapentin 100 MG CAPSULE PO ×2 (09:12→21:08)
[2020-11-17] MEDS: clonazePAM 1 MG TABLET PO ×2 (09:12→21:08)
[2020-11-17] MEDS: Loratadine 10 MG TABLET PO (09:13)
[2020-11-17] MEDS: lisinopriL 40 MG TABLET PO (09:13)
[2020-11-17] MEDS: methADONE HCl 20 MG/2 ML ORAL.CONC 50 MG PO (09:13)
[2020-11-17] MEDS: dilTIAZem HCL CD 300 MG CAP.ER.24H PO (09:13)
[2020-11-17] MEDS: acetaZOLAMIDE 250 MG TABLET PO ×2 (09:13→21:08)
--- NOTE | 2020-11-17 09:24 | P.CDIC_ITS ---
CDI Concurrent Query Service Date: 11/21/20 Documentation Clarification: Please clarify if you are treating a proba ble/suspected/likely or confirmed: Chronic respiratory failure with hypoxemia & hypercapnia Acute on chronic respiratory failure with hypoxemia & hypercapnia Please specify if known or undetermined Provider Response: Other Other Diagnosis: Acute on chronic respiratory failure with hypoxemia & hypercapnia PLEASE DO NOT DELETE/MODIFY EXISTING CONTENT Additional information is needed in order to code to the highest accuracy and appropriate Severity of Illness (SOI). Please clarify the information noted below in your progress notes and discharge summary. Risk Factors/Clinical Indicators/Treatments Pulmonary consult 11/16-because of her decompensated respiratory failure will add Diamox 25 b.i.d. Chronic respiratory failure w hypoxemia and hypercapnia slightly worse than before. Moderate respiratory distress, prolonged expirations w wheezing and rhonchi. COPD exacerbation using oxygen at home more consistently. Saturating 85% room air improved to 98% 2 liters oxygen. Admit. ABG's ordered. RR 26/24 pulse ox 90 L - room air to NC 2 liters increased to 4 liters and placed onto BIPAP. CDS: Daina Silva CCS, CDIS Contact Number: [phone] Thank you for your time. Please Review the information above and exercise your independent professional judgment in responding to the query. If you concur, pleas document in the PROGRESS NOTES and DISCHARGE SUMMARY. If you do not agree with the query, please document in the query above. THIS QUERY IS PART OF THE PERMANENT MEDICAL RECORD
--- NOTE | 2020-11-17 09:41 | PM.PNPUL ---
Subjective Subjective Date of Service: 11/17/20 Principal diagnosis: RESP. FAILURE Interval history: PATIENT CLAIMS THAT SHE IS FEELING BETTER, IN FACT SHE IS ALREADY ANXIOUS TO GO HOME. SLEPT WELL LAST NIGHT WITH BIPAP 18/6 AND BACKUP RATE OF 8. O/E SHE IS ALERT AND ORIENTATED, TALKING WITHOUT GETTING DYSPNEIC. THROAT IS CLEAR. CHEST AUSCULTATION REVEALS DISTANT BREATH SOUNDS ON BOTH SIDES, NO WHEEZES OR CREPITATIONS. CARDIOVASCULAR STATUS IS OKAY. Objective Data Labs CBC & Chem 7: 11/17/20 07:55 11/17/20 07:55 Labs: Laboratory Results - last 24 hr 11/16/20 11/16/20 11/16/20 11:02 16:19 20:04 WBC RBC Hgb Hct MCV MCH MCHC RDW Plt Count MPV Absolute Nucleated RBC Nucleated RBC % (auto) Sodium Potassium Chloride Carbon Dioxide Anion Gap BUN Creatinine Estim Creat Clear Calc Estimated GFR POC Glucose 226 H 248 H 277 H Random Glucose Calcium 11/17/20 11/17/20 11/17/20 07:14 07:55 07:55 WBC 18.8 H RBC 4.45 Hgb 13.6 Hct 43.8 MCV 98.4 H MCH 30.6 MCHC 31.1 RDW 13.3 Plt Count 245 MPV 9.1 L Absolute Nucleated RBC 0.020 H Nucleated RBC % (auto) 0.1 Sodium 139 Potassium 3.9 D Chloride 93 L Carbon Dioxide 39 H Anion Gap 11 L BUN 21 H D Creatinine 0.67 Estim Creat Clear Calc 105.8 Estimated GFR > 60 POC Glucose 240 H Random Glucose 207 H Calcium 9.7 Physical Exam Vital Signs: Vital Signs: Last Vital Signs Temp 97.2 F 11/17/20 07:16 Pulse 87 11/17/20 08:19 Resp 20 11/17/20 07:16 BP 160/76 H 11/17/20 07:16 Pulse Ox 96 11/17/20 07:16 Body Mass Index 39.6 Procedures Date of Service Date of Service: 11/17/20 Assessment and Plan Assessment and plan (1) Asthma-COPD overlap syndrome: Problem details: PATIENT HAS CHRONIC BRONCHIAL ASTHMA BUT ALSO ADVANCED CHRONIC OBSTRUCTIVE PULMONARY DISEASE. IT HAS BEEN GRADUALLY WORSENING BECAUSE OF HER CONTINUED SMOKING, SHE GETS FREQUENT ACUTE EXACERBATIONS. PRESENTLY SHE IS STARTING TO IMPROVE. SHE SHOULD BE CONTINUED ON PRESENT REGIMEN, FOR 1 OR 2 DAYS, AND THEN PREDNISONE TAPER, SHE SHOULD USE THE BIPAP AT LEAST FOR 6-8 HOURS DAILY. NO SMOKING AT ALL. Status: Acute (2) Respiratory failure, acute and chronic: Status: Acute Assessment and Plan: PATIENT HAS CHRONIC RESPIRATORY FAILURE AND SHE IS DEPENDENT ON HOME VENTILATOR , WHICH IS BIPAP AND BACKUP RATE SETTING OF 8 PER MINUTE. SHE CLAIMS THAT SHE IS USING IT DID REGULARLY BUT, IN THE PAST HOUR EXPERIENCES THAT SHE ENDS UP IN THE HOSPITAL WHEN SHE HAS BEEN USING SUBOPTIMALLY. AT PRESENT HER RESPIRATORY STATUS SEEMS TO HAVE IMPROVED. WILL ORDER VENOUS BLOOD GAS, TO BE DONE TOMORROW MORNING, AND IF IT IS IMPROVED THEN CONSIDER IS DISCHARGING HOME. Time Spent With Patient Time: Total time spent is greater than 50% in coordination of care (as documented) at patient's floor/unit and/or counseling patient: Time with patient: 15 - 24 minutes Progress Note: Quality Stroke Does the patient have a stroke diagnosis?: No
[2020-11-17 11:30] LABS: Glucose, Whole Blood 315 mg/dL (60-115)
--- NOTE | 2020-11-17 12:07 | HO.PM.IMPN ---
Subjective Subjective Date of Service: 11/17/20 Interval History: Seen and examined this morning Patient reports feeling somewhat better although appears short of breath Reports having difficulty coughing up phlegm Review of Systems Review of Systems: Yes all other systems are reviewed and are negative Constitutional Constitutional: Denies chills and Denies fever(s) Cardiovascular Cardiovascular: Denies chest pain Gastrointestinal Gastrointestinal: Denies abdominal pain Physical Exam Vital Signs: Vital Signs: Last Vital Signs Temp 98.1 F 11/17/20 11:08 Pulse 82 11/17/20 11:54 Resp 23 H 11/17/20 11:08 BP 152/88 H 11/17/20 11:08 Pulse Ox 93 11/17/20 11:08 Body Mass Index 39.6 Const: Nutritional Appearance: well nourished Orientation/consciousness: patient oriented x3 HENMT: Head: Yes normocephalic and Yes atraumatic Eyes: Sclerae: sclerae normal Chest: Chest palpation & inspection: normal inspection of the chest Resp: Other: Bilateral inspiratory and expiratory wheezing Cardio: Rate: regular rate Rhythm: regular rhythm GI: Palpation (GI): Soft to palpation and nontender Neuro: General: patient oriented x3 Cranial nerves: Yes CN's II-XII intact bilaterally and Yes Bilaterally intact EOM present Objective Data Active Medications Acetaminophen (Acetaminophen 325 Mg Tablet) 650 mg PO Q6H PRN PRN Reason: Pain, Mild (Pain Scale 1-3) Last Admin: 11/17/20 01:50 Dose: 650 mg Documented by: RIC Acetazolamide (Acetazolamide 250 Mg Tablet) 250 mg PO BID [facility] Last Admin: 11/17/20 09:13 Dose: 250 mg Documented by: ESTRADA Albuterol Sulfate (Albuterol Sulfate 90 Mcg 8 Gm Inhaler) 2 puff INHALE RQ6H PRN PRN Reason: Shortness Of Breath Or Wheezing Albuterol/Ipratropium (Albuterol/Iprat 2.5/0.5mg 3 Ml Ampul.Neb) 3 ml INHALE RQ4H WHILE AWAKE [facility] Last Admin: 11/17/20 11:54 Dose: 3 ml Documented by: MAGDIEL Albuterol/Ipratropium (Albuterol/Iprat 2.5/0.5mg 3 Ml Ampul.Neb) 3 ml INHALE RQ4H PRN PRN Reason: for wheezing Last Admin: 11/17/20 08:19 Dose: 3 ml Documented by: MAGDIEL Azithromycin (Azithromycin 500 Mg Tablet) 500 mg PO Q24H [facility] Last Admin: 11/17/20 01:46 Dose: 500 mg Documented by: RIC Clonazepam (Clonazepam 1 Mg Tablet) 1 mg PO BID [facility] Last Admin: 11/17/20 09:12 Dose: 1 mg Documented by: ESTRADA Dextrose (Dextrose 50 % 25 Gm/50 Ml Vial) 25 gm IVPUSH Q15M PRN; Protocol PRN Reason: per Hypoglycemia Standing Ord. Diltiazem HCl (Diltiazem Hcl Cd 300 Mg Cap.Er.24h) 300 mg PO DAILY [facility]; Protocol Last Admin: 11/17/20 09:13 Dose: 300 mg Documented by: ESTRADA Docusate Sodium (Docusate Sodium 100 Mg Capsule) 100 mg PO DAILY [facility] Last Admin: 11/17/20 09:12 Dose: 100 mg Documented by: ESTRADA Enoxaparin Sodium (Enoxaparin Sodium 40 Mg/0.4 Ml Syringe) 40 mg SUBCUT Q24H [facility] Last Admin: 11/17/20 01:46 Dose: 40 mg Documented by: RIC Fluticasone/Vilanterol (Fluticasone/Vilanterol 200/25 Blst.W.Dev) 1 puff INHALE RDAILY [facility] Last Admin: 11/17/20 08:19 Dose: 1 puff Documented by: MAGDIEL Gabapentin (Gabapentin 100 Mg Capsule) 100 mg PO BID [facility] Last Admin: 11/17/20 09:12 Dose: 100 mg Documented by: ESTRADA Glucose (Glucose Gel 15 Gm Gel..Gram.) 15 gm PO Q15M PRN; Protocol PRN Reason: per Hypoglycemia Standing Ord. Guaifenesin/Dextromethorphan (Guaifenesin Dm 100/10/5 Ml 5 Ml Syrup) 5 ml PO Q4H PRN PRN Reason: Cough Sodium Chloride (Ns) 1,000 mls @ 50 mls/hr IVCONT .Q20H [facility] Last Admin: 11/17/20 05:59 Dose: 50 mls/hr Documented by: RIC Insulin Glargine (Insulin Glargine,Hum.Rec.Anlog 100 Unit/Ml 10 Ml Vial) 30 unit SUBCUT BEDTIME [facility] Last Admin: 11/16/20 20:27 Dose: 30 unit Documented by: RIC Insulin Human Lispro (Insulin Lispro 100 Unit/Ml 3 Ml Vial) 0 unit SUBCUT QIDACHS [facility]; Protocol Last Admin: 11/17/20 11:29 Dose: 8 unit Documented by: ESTRADA Lisinopril (Lisinopril 40 Mg Tablet) 40 mg PO DAILY [facility]; Protocol Last Admin: 11/17/20 09:13 Dose: 40 mg Documented by: ESTRADA Loratadine (Loratadine 10 Mg Tablet) 10 mg PO DAILY [facility] Last Admin: 11/17/20 09:13 Dose: 10 mg Documented by: ESTRADA Methadone HCl (Methadone Hcl 20 Mg/2 Ml Oral.Conc) 50 mg PO DAILY [facility] Last Admin: 11/17/20 09:13 Dose: 50 mg Documented by: ESTRADA Methylprednisolone Sodium Succinate (Methylprednisolone Sod Succ 40 Mg/Ml Vial) 40 mg IVPUSH Q6H [facility] Last Admin: 11/17/20 11:29 Dose: 40 mg Documented by: ESTRADA Montelukast Sodium (Montelukast Sodium 10 Mg Tablet) 10 mg PO DAILY [facility] Last Admin: 11/17/20 09:12 Dose: 10 mg Documented by: ESTRADA Non-Formulary Medication (Arformoterol [Brovana]) 2 ml INHALE Q12H [facility] Non-Formulary Medication (Budesonide) 0.5 mg INHALE BID [facility] Omeprazole (Omeprazole 20 Mg Capsule.Dr) 20 mg PO DAILY@0630 [facility] Last Admin: 11/17/20 06:00 Dose: 20 mg Documented by: RIC Senna (Sennosides 8.6 Mg Tablet) 8.6 mg PO BEDTIME PRN PRN Reason: constipation Sodium Chloride (0.9 % Sodium Chloride Flush 3 Ml Syringe) 3 ml IVFLUSH QSHIFT [facility] Last Admin: 11/17/20 07:29 Dose: Not Given Documented by: ESTRADA Non-Admin Reason: IV Running Zolpidem Tartrate (Zolpidem Tartrate 5 Mg Tablet) 5 mg PO BEDTIME PRN PRN Reason: Sleep Labs CBC & Chem 7: 11/17/20 07:55 11/17/20 07:55 Labs: Laboratory Results - last 24 hr 11/16/20 11/16/20 11/17/20 16:19 20:04 07:14 MCV MCH MCHC RDW Plt Count MPV Absolute Nucleated RBC Nucleated RBC % (auto) Anion Gap Estim Creat Clear Calc Estimated GFR POC Glucose 248 H 277 H 240 H Random Glucose Calcium 11/17/20 11/17/20 11/17/20 07:55 07:55 11:07 MCV 98.4 H MCH 30.6 MCHC 31.1 RDW 13.3 Plt Count 245 MPV 9.1 L Absolute Nucleated RBC 0.020 H Nucleated RBC % (auto) 0.1 Anion Gap 11 L Estim Creat Clear Calc 105.8 Estimated GFR > 60 POC Glucose 315 H Random Glucose 207 H Calcium 9.7 Assessment and Plan (1) Respiratory failure, acute and chronic: Status: Acute (2) Asthma-COPD overlap syndrome: Status: Acute Assessment and Plan: ?50-year-old female with a past medical history of hypertension, hyperlipidemia, diabetes, asthma/COPD on chronic home steroids and roflumilast, chronic respiratory failure on home oxygen and BiPAP at night tobacco dependence, hypogammaglobulinemia, opiate dependence on methadone, mood disorder presented to the hospital with a chief complaint of shortness of breath.? Noted to be in mild asthma/COPD exacerbation.? Admitted for further management. Asthma/COPD exacerbation:? Continue DuoNeb standing and p.r.n..? Continue Solu-Medrol, Azithromycin. Pulmonology consult Continue home supplemental oxygen Continue home inhalers and roflumilast History of chronic respiratory failure with hypercarbia Continue BiPAP at night and p.r.n. during the day Pulmonology following, recommend starting Diamox ABG in a.m. to eval CO2 Diabetes:? Lantus 30 units and insulin sliding scale.? Monitor fingerstick glucose and adjust insulins as needed. Opiate Dependence: Continue methadone Will continue the remainder baseline medications DVT prophylaxis:? Lovenox Code status:? Full code Attending physician-Dr. Jones Quality Stroke Does the patient have a stroke diagnosis?: No VTE Prior VTE?: No VTE Risk Level:: Medical - moderate - high VTE Device Contraindication: Treatment Not Indicated VTE Drug Contraindication: N/A - Med Ordered
--- NOTE | 2020-11-17 12:37 | MHC.CM.PN ---
received call john pts nurse from [facility] [phone] she delivers her methadone she explins that if pt is dcd sat there may be an issue in getting pt her methadone as she is off and the only rn certified to diamond picker metjhadone for pt ,contact [facility] hospital nurse manager dental [facility] [phone] if pt is dcd sat is pt dcd jessica or mitchel contact tremaine at the [phone] number
[2020-11-17] MEDS: hydroCHLOROthiazide 25 MG TABLET PO (13:28)
[2020-11-17 16:19] LABS: Glucose, Whole Blood 258 mg/dL (60-115)
[2020-11-17 21:05] LABS: Glucose, Whole Blood 314 mg/dL (60-115)
[2020-11-17] MEDS: Insulin Glargine,Hum.rec.anlog 100 UNIT/ML 10 ML VIAL 30 UNIT SUBCUT (21:08)
[2020-11-18] VITALS (12 sets, daily range): BP systolic 102–158; BP diastolic 57–90; PULSE 75–101; RESP 16–19; TEMP 35.9–36.9; O2SAT 91–988
[2020-11-18] MEDS: Enoxaparin Sodium 40 MG/0.4 ML SYRINGE SUBCUT (02:31)
[2020-11-18] MEDS: Azithromycin 500 MG TABLET PO (02:31)
[2020-11-18] MEDS: 0.9 % Sodium Chloride 1,000 ML 50 ML IVCONT (02:33)
[2020-11-18] MEDS: Omeprazole 20 MG CAPSULE.DR PO (05:49)
[2020-11-18] MEDS: methylPREDNISolone Sod Succ 40 MG/ML VIAL IVPUSH ×3 (05:49→18:16)
[2020-11-18 07:27] LABS: Glucose, Whole Blood 238 mg/dL (60-115)
[2020-11-18] MEDS: acetaZOLAMIDE 250 MG TABLET PO ×2 (07:53→21:06)
[2020-11-18] MEDS: Loratadine 10 MG TABLET PO (07:53)
[2020-11-18] MEDS: lisinopriL 40 MG TABLET PO (07:53)
[2020-11-18] MEDS: Gabapentin 100 MG CAPSULE PO ×2 (07:54→21:06)
[2020-11-18] MEDS: hydroCHLOROthiazide 25 MG TABLET PO (07:55)
[2020-11-18] MEDS: dilTIAZem HCL CD 300 MG CAP.ER.24H PO (07:55)
[2020-11-18] MEDS: methADONE HCl 20 MG/2 ML ORAL.CONC 50 MG PO (07:56)
[2020-11-18] MEDS: Montelukast Sodium 10 MG TABLET PO (07:56)
[2020-11-18] MEDS: Docusate Sodium 100 MG CAPSULE PO (07:56)
[2020-11-18] MEDS: clonazePAM 1 MG TABLET PO ×2 (07:56→21:06)
[2020-11-18] MEDS: Insulin Lispro 100 UNIT/ML 3 ML VIAL SUBCUT ×4 (07:57→21:07)
[2020-11-18 07:58] LABS: Venous Blood Gas Refer to POC result
[2020-11-18 07:59] LABS: VBG Base Excess 11.9 mmol/L; VBG HCO3 41 mmol/L (22-26); VBG pCO2 78 mmHg; VBG pH 7.33 (7.32-7.43); VBG pO2 59 mmHg
[2020-11-18] MEDS: Fluticasone/Vilanterol 200/25 BLST.W.DEV 1 PUFF INHALE (08:09)
[2020-11-18] MEDS: Albuterol/Iprat 2.5/0.5MG 3 ML AMPUL.NEB INHALE ×4 (08:09→19:24)
--- NOTE | 2020-11-18 10:48 | P.PNPL_ITS ---
Subjective Subjective Date of Service: 11/18/20 Principal diagnosis: RESP. FAILURE Interval history: Patient seems to be comfortable., she did use her BiPAP at night. Denies respiratory distress, chest pain, Cough is usual, mild to moderate, nonproductive. O/E throat is clear Neck normal Chest: Breath sounds are distant on both sides no active wheezing or crepitations. Venous BGs 7.33. 78,59 , seems to be at baseline with chronic compensated res piratory failure. White cell count of 18.4 is a chronic leukocytosis probably related to steroids use. Objective Data Labs CBC & Chem 7: 11/17/20 07:55 11/17/20 07:55 Labs: Laboratory Results - last 24 hr 11/17/20 11/17/20 11/17/20 11:07 16:13 21:00 VBG pH VBG pCO2 VBG pO2 VBG HCO3 VBG O2 Saturation VBG Base Excess POC Glucose 315 H 258 H 314 H 11/18/20 11/18/20 07:22 07:55 VBG pH 7.33 VBG pCO2 78 VBG pO2 59 VBG HCO3 41 H VBG O2 Saturation 85.0 VBG Base Excess 11.9 POC Glucose 238 H ABG Attestation: I personally reviewed and interpreted this ABG as follows: Interpretation: Venous blood gas study pH 7.33 pCO2 78 and PO2 of 59 Physical Exam Vital Signs: Vital Signs: Last Vital Signs Temp 96.8 F 11/18/20 07:26 Pulse 75 11/18/20 07:55 Resp 18 11/18/20 07:26 BP 131/72 11/18/20 07:55 Pulse Ox 98 11/18/20 07:26 Body Mass Index 39.6 Procedures Date of Service Date of Service: 11/18/20 Assessment and Plan Assessment and plan (1) Asthma-COPD overlap syndrome: Problem details: PATIENT HAS CHRONIC BRONCHIAL ASTHMA BUT ALSO ADVANCED CHRONIC OBSTRUCTIVE PULMONARY DISEASE. IT HAS BEEN GRADUALLY WORSENING BECAUSE OF HER CONTINUED SMOKING, SHE GETS FREQUENT ACUTE EXACERBATIONS. PRESENTLY SHE IS SEEMS TO BE AT BASELINE. OKAY TO CHANGE IV SSHE SHOUOLU-MEDROL TO PREDNISONE 40 MG A DAY, THEN GRADUAL TAPER OVER THE NEXT 2 WEEKS. TO CONTINUE HER REGULAR REGIMEN AT HOME. NO SMOKING AT ALL. Status: Acute (2) Respiratory failure, acute and chronic: Problem details: THIS PATIENT HAS CHRONIC RESPIRATORY FAILURE WITH HYPERCAPNIA AND HYPOXEMIA. CURRENTLY SHE HAS COMBINATION OF RESPIRATORY ACIDOSIS WHICH IS COMPENSATED BY METABOLIC ALKALOSIS. VENOUS BLOOD GAS NOTED ABOVE SHOWS THAT SHE IS MORE AT HER BASELINE. THE LEVEL OF PCO 2 DEPENDS UPON HOW MUCH SHE USES HER BIPAP. IN ADDITION TO USING AT NIGHT SHE DOES NEED TO USE FOR A FEW HOURS DURING THE DAYTIME WELL. Status: Acute (3) Metabolic alkalosis with respiratory acidosis: Problem details: NOTED ABOVE UNDER RESPIRATORY FAILURE, BECAUSE OF METABOLIC ALKALOSIS FACTORS SHE HAS BEEN STARTED ON DIAMOX 250 MG B.I.D.. Status: Acute Time Spent With Patient Time: Total time spent is greater than 50% in coordination of care (as documented) at patient's floor/unit and/or counseling patient: Time with patient: 15 - 24 minutes Progress Note: Quality Stroke Does the patient have a stroke diagnosis?: No
[2020-11-18 11:10] LABS: Glucose, Whole Blood 220 mg/dL (60-115)
--- NOTE | 2020-11-18 11:41 | PM.IMPN ---
Progress Note: A&P (1) Respiratory failure, acute and chronic: Status: Acute Assessment and Plan: 50-year-old female with a past medical history of hypertension, hyperlipidemia, diabetes, asthma/COPD on chronic home steroids and roflumilast, chronic respiratory failure on home oxygen and BiPAP at night tobacco dependence, hypogammaglobulinemia, opiate dependence on methadone, mood disorder presented to the hospital with a chief complaint of shortness of breath.? Noted to be in mild asthma/COPD exacerbation.? Admitted for further management. Asthma/COPD exacerbation Continue DuoNeb standing and p.r.n..? Continue Solu-Medrol, Azithromycin. Pulmonology consult Continue home supplemental oxygen Continue home inhalers and roflumilast History of chronic respiratory failure with hypercarbia Continue BiPAP at night and p.r.n. during the day Pulmonology following, recommend starting Diamox ABG near baseline Diabetes Lantus 30 units and insulin sliding scale. Opiate Dependence Continue methadone DVT prophylaxis:? Lovenox Code status:? Full code Attending physician Dr. Alejo Subjective Subjective Date of Service: 11/18/20 Review of Systems Follow up Acute on chronic resp failure still somewhat sob today but better Physical Exam Vital Signs: Vital Signs: Last Vital Signs Temp 98.5 F 11/18/20 11:22 Pulse 84 11/18/20 11:22 Resp 16 11/18/20 11:22 BP 102/57 L 11/18/20 11:22 Pulse Ox 97 11/18/20 11:22 Body Mass Index 39.6 Appearing in no acute distress lung sounds coarse, wheezing heart regular rate rhythm, clear S1, S2 positive bowel sounds, abdomen is soft, nontender neuro patient is alert x3, no focal deficits Objective Data Current Medications Generic Name Dose Route Start Last Admin Trade Name Freq PRN Reason Stop Dose Admin Acetaminophen 650 mg 11/16/20 01:11 11/17/20 01:50 Acetaminophen 325 Mg Tablet PO 650 mg Q6H PRN Administration Pain, Mild (Pain Scale 1-3) Acetazolamide 250 mg 11/16/20 21:00 11/18/20 07:53 Acetazolamide 250 Mg Tablet PO 250 mg BID ANA Administration Albuterol Sulfate 2 puff 11/16/20 01:14 Albuterol Sulfate 90 Mcg 8 Gm Inhaler INHALE RQ6H PRN Shortness Of Breath Or Wheezing Albuterol/Ipratropium 3 ml 11/16/20 08:00 11/18/20 08:09 Albuterol/Iprat 2.5/0.5mg 3 Ml Ampul.Neb INHALE 3 ml RQ4H WHILE AWAKE ANA Administration Albuterol/Ipratropium 3 ml 11/16/20 01:14 11/17/20 08:19 Albuterol/Iprat 2.5/0.5mg 3 Ml Ampul.Neb INHALE 3 ml RQ4H PRN Administration for wheezing Azithromycin 500 mg 11/16/20 02:00 11/18/20 02:31 Azithromycin 500 Mg Tablet PO 500 mg Q24H ANA Administration Clonazepam 1 mg 11/16/20 09:00 11/18/20 07:56 Clonazepam 1 Mg Tablet PO 1 mg BID ANA Administration Dextrose 25 gm 11/16/20 01:11 Dextrose 50 % 25 Gm/50 Ml Vial IVPUSH Q15M PRN per Hypoglycemia Standing Ord. Protocol Diltiazem HCl 300 mg 11/16/20 09:00 11/18/20 07:55 Diltiazem Hcl Cd 300 Mg Cap.Er.24h PO 300 mg DAILY ANA Administration Protocol Docusate Sodium 100 mg 11/16/20 09:00 11/18/20 07:56 Docusate Sodium 100 Mg Capsule PO 100 mg DAILY ANA Administration Enoxaparin Sodium 40 mg 11/16/20 02:00 11/18/20 02:31 Enoxaparin Sodium 40 Mg/0.4 Ml Syringe SUBCUT 40 mg Q24H ANA Administration Fluticasone/Vilanterol 1 puff 11/17/20 08:00 11/18/20 08:09 Fluticasone/Vilanterol 200/25 Blst.W.Dev INHALE 1 puff RDAILY ANA Administration Gabapentin 100 mg 11/16/20 09:00 11/18/20 07:54 Gabapentin 100 Mg Capsule PO 100 mg BID ANA Administration Glucose 15 gm 11/16/20 01:11 Glucose Gel 15 Gm Gel..Gram. PO Q15M PRN per Hypoglycemia Standing Ord. Protocol Guaifenesin/Dextromethorphan 5 ml 11/16/20 01:34 Guaifenesin Dm 100/10/5 Ml 5 Ml Syrup PO Q4H PRN Cough Hydrochlorothiazide 25 mg 11/17/20 12:45 11/18/20 07:55 Hydrochlorothiazide 25 Mg Tablet PO 25 mg DAILY NAA Administration Insulin Glargine 30 unit 11/16/20 21:00 11/17/20 21:08 Insulin Glargine,Hum.Rec.Anlog 100 Unit/Ml 10 Ml Vial SUBCUT 30 unit BEDTIME ANA Administration Insulin Human Lispro 0 unit 11/16/20 07:30 11/18/20 07:57 Insulin Lispro 100 Unit/Ml 3 Ml Vial SUBCUT 4 unit QIDACHS [facility] Administration Protocol Lisinopril 40 mg 11/16/20 09:00 11/18/20 07:53 Lisinopril 40 Mg Tablet PO 40 mg DAILY [facility] Administration Protocol Loratadine 10 mg 11/16/20 09:00 11/18/20 07:53 Loratadine 10 Mg Tablet PO 10 mg DAILY ANA Administration Methadone HCl 50 mg 11/16/20 10:15 11/18/20 07:56 Methadone Hcl 20 Mg/2 Ml Oral.Conc PO 50 mg DAILY ANA Administration Methylprednisolone Sodium Succinate 40 mg 11/16/20 06:00 11/18/20 05:49 Methylprednisolone Sod Succ 40 Mg/Ml Vial IVPUSH 40 mg Q6H [facility] Administration Montelukast Sodium 10 mg 11/16/20 09:00 11/18/20 07:56 Montelukast Sodium 10 Mg Tablet PO 10 mg DAILY ANA Administration Non-Formulary Medication 2 ml 11/16/20 01:15 Arformoterol [Brovana] INHALE Q12H [facility] Non-Formulary Medication 0.5 mg 11/16/20 09:00 Budesonide INHALE BID [facility] Omeprazole 20 mg 11/16/20 06:30 11/18/20 05:49 Omeprazole 20 Mg Capsule. PO 20 mg DAILY@0630 [facility] Administration Senna 8.6 mg 11/16/20 01:14 Sennosides 8.6 Mg Tablet PO BEDTIME PRN constipation Sodium Chloride 3 ml 11/16/20 08:00 11/18/20 07:58 0.9 % Sodium Chloride Flush 3 Ml Syringe IVFLUSH Not Given QSHIFT [facility] Zolpidem Tartrate 5 mg 11/16/20 01:14 Zolpidem Tartrate 5 Mg Tablet PO BEDTIME PRN Sleep Labs CBC & Chem 7: 11/17/20 07:55 11/17/20 07:55 Labs: Laboratory Results - last 24 hr 11/17/20 11/17/20 11/18/20 16:13 21:00 07:22 VBG pH VBG pCO2 VBG pO2 VBG HCO3 VBG O2 Saturation VBG Base Excess POC Glucose 258 H 314 H 238 H 11/18/20 11/18/20 07:55 11:07 VBG pH 7.33 VBG pCO2 78 VBG pO2 59 VBG HCO3 41 H VBG O2 Saturation 85.0 VBG Base Excess 11.9 POC Glucose 220 H Quality Stroke Does the patient have a stroke diagnosis?: No VTE Prior VTE?: No VTE Risk Level:: Medical - moderate - high VTE Device Contraindication: Treatment Not Indicated VTE Drug Contraindication: N/A - Med Ordered
[2020-11-18 16:13] LABS: Glucose, Whole Blood 314 mg/dL (60-115)
[2020-11-18] MEDS: 0.9 % Sodium Chloride Flush 3 ML SYRINGE IVFLUSH ×2 (16:45→21:07)
[2020-11-18 20:14] LABS: Glucose, Whole Blood 310 mg/dL (60-115)
[2020-11-18] MEDS: Insulin Glargine,Hum.rec.anlog 100 UNIT/ML 10 ML VIAL 30 UNIT SUBCUT (21:06)
[2020-11-19] VITALS: BP 130/66; PULSE 75; RESP 16; TEMP 36.6; O2SAT 98
[2020-11-19] MEDS: methylPREDNISolone Sod Succ 40 MG/ML VIAL IVPUSH ×2 (00:10→05:44)
[2020-11-19 00:21] VITALS: PULSE 73; RESP 15; O2SAT 97
[2020-11-19] MEDS: Enoxaparin Sodium 40 MG/0.4 ML SYRINGE SUBCUT (02:48)
[2020-11-19] MEDS: Azithromycin 500 MG TABLET PO (02:48)
[2020-11-19 03:11] VITALS: BP 120/58; PULSE 65; RESP 16; TEMP 35.9; O2SAT 98
[2020-11-19 05:11] VITALS: PULSE 63; RESP 14; O2SAT 98
[2020-11-19] MEDS: Omeprazole 20 MG CAPSULE.DR PO (05:44)
[2020-11-19 07:16] LABS: Glucose, Whole Blood 288 mg/dL (60-115)
[2020-11-19 07:32] VITALS: BP 132/78; PULSE 79; RESP 20; TEMP 36.1; O2SAT 97
[2020-11-19] MEDS: Insulin Lispro 100 UNIT/ML 3 ML VIAL SUBCUT ×2 (07:32→11:36)
[2020-11-19] MEDS: 0.9 % Sodium Chloride Flush 3 ML SYRINGE IVFLUSH (07:32)
[2020-11-19] MEDS: Albuterol/Iprat 2.5/0.5MG 3 ML AMPUL.NEB INHALE ×2 (07:56→11:58)
[2020-11-19 07:57] VITALS: PULSE 96; O2SAT 71
[2020-11-19] MEDS: Fluticasone/Vilanterol 200/25 BLST.W.DEV 1 PUFF INHALE (08:23)
[2020-11-19] MEDS: lisinopriL 40 MG TABLET PO (09:02)
[2020-11-19] MEDS: Gabapentin 100 MG CAPSULE PO (09:02)
[2020-11-19] MEDS: Montelukast Sodium 10 MG TABLET PO (09:02)
[2020-11-19] MEDS: hydroCHLOROthiazide 25 MG TABLET PO (09:02)
[2020-11-19] MEDS: acetaZOLAMIDE 250 MG TABLET PO (09:02)
[2020-11-19] MEDS: Loratadine 10 MG TABLET PO (09:02)
[2020-11-19] MEDS: dilTIAZem HCL CD 300 MG CAP.ER.24H PO (09:02)
[2020-11-19] MEDS: clonazePAM 1 MG TABLET PO (09:02)
[2020-11-19] MEDS: Docusate Sodium 100 MG CAPSULE PO (09:03)
[2020-11-19] MEDS: methADONE HCl 20 MG/2 ML ORAL.CONC 50 MG PO (09:07)
[2020-11-19] MEDS: predniSONE 20 MG TABLET 40 MG PO (09:15)
--- NOTE | 2020-11-19 10:41 | PM.DS ---
DS: Providers Provider Date of Service: 11/19/20 Date of admission: 11/16/20 01:11 Primary care physician: [facility] Consults: 11/16/20 01:17 Consult to Pulmonology Routine Consulting Provider: Alvino Dillard Reason for consultation: COPD Attending physician on discharge: Kristian Alejo Discharging clinician: China Brito DS: Diagnosis Discharge Diagnosis (1) Respiratory failure, acute and chronic: Status: Acute DS: Summary Hospital Course Hospital Course: HP as per admitting provider 50-year-old female with a past medical history of hypertension, hyperlipidemia, diabetes, asthma/COPD on chronic home steroids and roflumilast, chronic respiratory failure on home oxygen and BiPAP at night tobacco dependence, hypogammaglobulinemia, opiate dependence on methadone, mood disorder presented to the hospital with a chief complaint of shortness of breath. Patient reported a past couple days he has been having shortness of breath which has been gradually worsening issues with a cough; denies any sputum production.? Denies any fevers. Denies any chest pain palpitations lightheadedness or dizziness. Denies any GI or symptoms. Review of all other systems is negative except mentioned above ER course: Per ER team patient noted to be in mild respiratory distress with poor longer wheezing; COVID-19 was negative; given nebulizations, steroids.? Admitted to the hospital for further management . Acute on chronic respiratory failure secondary to COPD. Chronic respiratory failure. On bipap/cpap at home. She was treated with scheduled IV steroids, duonebs , azithromycin and intermittent BiPAP. Patient has recovered back to her baseline over the last several days and ready for discharge. She will be home on a prednisone taper for 12 days and then back to her usual dose of prednisone 10 mg twice daily. Time Spent with Patient Time attestation: Total time spent providing and/or coordinating discharge services: Discharge coordination time: Greater than 30 minutes Quality: Stroke Does the patient have a stroke diagnosis?: No Physical Exam Vital Signs: Vital Signs: Last Vital Signs Temp 97.0 F 11/19/20 07:32 Pulse 96 11/19/20 07:57 Resp 20 11/19/20 07:32 BP 132/78 11/19/20 07:32 Pulse Ox 97 11/19/20 07:32 Body Mass Index 39.6 Appearing in no acute distress lung sounds ex wheezing, diminished heart regular rate rhythm, clear S1, S2 positive bowel sounds, abdomen is soft, nontender neuro patient is alert x3, no focal deficits DS: Data Data Completed and Pending Completed studies during hospitalization [Text1]: Procedures Assistance with Respiratory Ventilation, Less than 24 Consecutive Hours, Continuous Positive Airway Pressure (10/13/20) Labs on day of discharge: Laboratory Results - last 24 hr 11/18/20 11/18/20 11/18/20 11:07 16:09 20:11 POC Glucose 220 H 314 H 310 H 11/19/20 07:08 POC Glucose 288 H Discharge Plan Discharge Anticipated Discharge Date/Time: 11/19/20 10:00 Patient Disposition: Home, Self-Care Discharge Diagnosis: Acute on chronic respiratory failure secondary to asthma/COPD exacerbation chronic respiratory failure with hypercarbia Referrals: [facility] [Primary Care Provider] - 1 Week Discharge Medications: New prednisone 10 mg tablet See Taper mg PO DAILY Qty: 36 RF: 0 Continued Robitussin Cough-Chest Tristan DM 5-50 mg/5 mL liquid 20 ml PO Q4-6H PRN (Reason: cough) 14 Days Qty: 300 RF: 5 tiotropium bromide [Spiriva with HandiHaler] 18 mcg capsule, w/inhalation device 1 cap inhalation DAILY Qty: 30 RF: 11 prednisone 10 mg tablet 10 mg PO BID 30 Days Qty: 60 RF: 5 immun glob B-yit-dtjo-IgA 0-50 10 gram recon soln 40 g IV Q4W Qty: 2 RF: 12 ipratropium-albuterol 0.5 mg-3 mg(2.5 mg base)/3 mL solution for nebulization 3 ml inhalation Q4H PRN (Reason: for wheezing) Qty: 540 RF: 6 gabapentin 100 mg capsule 1 cap PO BID RF: 0 Lantus U-100 Insulin 100 unit/mL solution 45 unit subcut BEDTIME RF: 0 prednisone 10 mg tablet See Taper mg PO DAILY Qty: 20 RF: 0 diltiazem HCl [Tiadylt ER] 360 mg capsule,extended release 24 hr 1 cap PO DAILY RF: 0 chlorthalidone 25 mg tablet 1 tab PO DAILY RF: 0 insulin lispro [Humalog U-100 Insulin] 100 unit/mL solution 4 unit subcut DAILY RF: 0 Arnoldo-24 400 mg capsule,extended release 24hr 2 cap PO DAILY RF: 0 rosuvastatin 5 mg tablet 1 tab PO BEDTIME RF: 0 Daliresp 500 mcg tablet 1 tab PO DAILY RF: 0 docusate sodium 100 mg capsule 100 mg PO DAILY Qty: 30 RF: 3 sennosides [Natural Senna Laxative] 8.6 mg tablet 8.6 mg PO BEDTIME PRN (Reason: constipation) Qty: 30 RF: 1 montelukast 10 mg tablet 10 mg PO DAILY RF: 0 albuterol sulfate [ProAir HFA] 90 mcg/actuation HFA aerosol inhaler 2 puff inhalation Q6H PRN (Reason: Shortness Of Breath Or Wheezing) RF: 0 loratadine [Claritin] 10 mg tablet 10 mg PO DAILY RF: 0 metformin 500 mg tablet 500 mg PO BID RF: 0 pantoprazole 40 mg tablet,delayed release (DR/EC) 40 mg PO DAILY RF: 0 lisinopril 40 mg tablet 40 mg PO DAILY RF: 0 zolpidem [Ambien] 10 mg tablet 10 mg PO BEDTIME PRN (Reason: Sleep) RF: 0 methadone 10 mg tablet 49 mg PO DAILY RF: 0 lamotrigine [Lamictal] 150 mg tablet 75 mg PO BID RF: 0 clonazepam 1 mg tablet 1 mg PO BID RF: 0 Brovana 15 mcg/2 mL solution for nebulization 2 ml inhalation Q12H 30 Days Qty: 120 RF: 11 budesonide 0.5 mg/2 mL suspension for nebulization 0.5 mg inhalation BID Qty: 120 RF: 11 Discharge Orders: Discharge Order (Routine); Ordered 11/19/20 Ordered By: China Brito Diet: advance to usual diet Activity on Discharge: As tolerated Stand Alone Forms: Patient Portal Discharge page Care Plan Goals: resolution of COPD symptoms Health Concerns: Acute on chronic respiratory failure secondary to asthma/COPD exacerbation chronic respiratory failure with hypercarbia Plan of Treatment: Continue home medications Follow up with your primary care provider as needed you will be on a prednisone taper. Once your done with that continue your usual home dose of prednisone. Assessment: see discharge summary
--- NOTE | 2020-11-19 11:16 | MHC.CM.PN ---
Addendum entered by Olinda Fermin RN 11/19/20 12:08: CM MET W/PT AND [facility] WHO WAS AT BEDSIDE, PER [facility] PT'S DTR IS DOWNSTAIRS W/O2 TANK AND WILL TRANSPORT PT HOME. 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
[2020-11-19 11:42] LABS: Glucose, Whole Blood 322 mg/dL (60-115)
== END 2020-11-19 12:13 | disposition home or self-care (01) | DRG 141 ==
LOC: HO.ED 11-16 00:59 → HO.EDOVER 11-16 01:21 → HO.S3 11-16 07:13
PROVIDERS: Family Medicine; Internal Medicine; Physician Assistant Medical; Admitting Provider Hospitalist; Emergency Provider Internal Medicine; Visit Provider Nurse Practitioner Acute Care
DX: J45.51 Severe persistent asthma with (acute) exacerbation (principal); J96.21 Acute and chronic respiratory failure with hypoxia; E87.4 Mixed disorder of acid-base balance; J44.1 Chronic obstructive pulmonary disease with (acute) exacerbation; Z99.81 Dependence on supplemental oxygen; F11.20 Opioid dependence, uncomplicated; Z20.822 Contact with and (suspected) exposure to COVID-19; J96.22 Acute and chronic respiratory failure with hypercapnia; E11.9 Type 2 diabetes mellitus without complications; I10 Essential (primary) hypertension; F17.210 Nicotine dependence, cigarettes, uncomplicated; Z71.6 Tobacco abuse counseling; Z79.4 Long term (current) use of insulin; Z79.899 Other long term (current) drug therapy
CPT/HCPCS: 36415; 36600; 71045; 80048; 82803; 82947; 85025; 85027; 87635; 93005; 94640; 94660; 96361; 96374; 99285; J1100; J1650; J2920

== ENCOUNTER → 2020-11-23 10:41 | Outpatient (BNVA) | payer MEDICAID, SELFPAY | PROVIDERS: PCP Family Medicine; Visit Provider Hospitalist | DX: J44.1 Chronic obstructive pulmonary disease with (acute) exacerbation (principal); J44.9 Chronic obstructive pulmonary disease, unspecified; D80.1 Nonfamilial hypogammaglobulinemia; J96.11 Chronic respiratory failure with hypoxia; J96.12 Chronic respiratory failure with hypercapnia; R06.02 Shortness of breath; F17.200 Nicotine dependence, unspecified, uncomplicated | CPT/HCPCS: 99212 ==

== ENCOUNTER → 2020-11-24 10:26 | Outpatient (BNVA) | payer MEDICAID, SELFPAY | PROVIDERS: Visit Provider Nurse Practitioner Family ==

== ENCOUNTER 2020-12-11 10:01 | Outpatient (REF) | payer MEDICAID, SELFPAY | END 2020-12-11 10:02 | disposition home or self-care (01) | LOC: HO.MDS 10:01 | PROVIDERS: Visit Provider Hospitalist | DX: D80.1 Nonfamilial hypogammaglobulinemia (principal) | CPT/HCPCS: 96365; 96366; J1569 ==

== ENCOUNTER 2020-12-14 17:38 | Emergency (ER) | payer MEDICAID, SELFPAY ==
--- NOTE | ~2020-12-14 | XR_ITS ---
EXAMINATION: XR CHEST CLINICAL INFORMATION: COPD/SOB COMPARISON: Chest x-ray 11/15/2020 TECHNIQUE: Frontal view of the chest was obtained. FINDINGS: The lungs are well-expanded and clear of acute process. Heart size and pulmonary vascularity is normal. There are multiple right upper and lower, left mid rib healing fractures with callus formation XR/XR chest 1V IMPRESSION: No acute cardiopulmonary process seen.
[2020-12-14 17:47] VITALS: BP 130/82; BP 132/59; PULSE 98; RESP 20; O2SAT 95; O2SAT 97; BMI 42.7
--- NOTE | 2020-12-14 17:47 | ED.SOB ---
HPI - SOB/Dyspnea General Chief Complaint: Upper Respiratory Symptoms <Benedicto Padgett MD - Last Filed: 12/15/20 12:04> Stated Complaint: COPD EXACERBATION <Benedicto Padgett MD - Last Filed: 12/15/20 12:04> Time Seen by Provider: 12/14/20 17:43 <Benedicto Padgett MD - Last Filed: 12/15/20 12:04> Source: patient and EMS <Benedicto Padgett MD - Last Filed: 12/15/20 12:04> Mode of arrival: EMS <Benedicto Padgett MD - Last Filed: 12/15/20 12:04> Limitations: no limitations <Benedicto Padgett MD - Last Filed: 12/15/20 12:04> History of Present Illness HPI Narrative: Patient is 50 years old obese with history of asthma/COPD overlap syndrome chronic respiratory failure on 2 L of oxygen hypertension diabetes morbid obesity frequent ED visits non vaccinated against COVID currently on prednisone 20 mg daily been short of breath for last 3- 4 days pulse ox dropped to 80% according to patient at home increased after she increased the oxygen to 3 L patient denies any fever no productive cough no chest pain or palpitation patient been here with same complaint multiple times, patient is on prednisone 20 mg daily <Benedicto Padgett MD - Last Filed: 12/15/20 12:04> Related Data Home Medications: Home Medications Medication Instructions Recorded Confirmed albuterol sulfate 90 mcg/actuation 2 puff INHALATION Q6H PRN 12/30/19 12/14/20 aerosol inhaler (ProAir HFA) clonazepam 1 mg tablet 1 mg PO BID PRN 12/30/19 12/14/20 lamotrigine 150 mg tablet 75 mg PO BID 12/30/19 12/14/20 (Lamictal) lisinopril 40 mg tablet 40 mg PO DAILY 12/30/19 12/14/20 loratadine 10 mg tablet (Claritin) 10 mg PO DAILY 12/30/19 12/14/20 metformin 500 mg tablet 500 mg PO BID 12/30/19 12/14/20 methadone 10 mg tablet 49 mg PO DAILY 12/30/19 11/16/20 montelukast 10 mg tablet 10 mg PO DAILY 12/30/19 12/14/20 pantoprazole 40 mg tablet,delayed 40 mg PO DAILY 12/30/19 12/14/20 release zolpidem 10 mg tablet (Ambien) 10 mg PO BEDTIME PRN 12/30/19 12/14/20 gabapentin 100 mg capsule 1 cap PO DAILY@1200 10/14/20 12/14/20 insulin glargine 100 unit/mL 45 unit SUBCUT BEDTIME 10/14/20 12/14/20 subcutaneous solution (Lantus U-100 Insulin) chlorthalidone 25 mg tablet 1 tab PO DAILY 11/16/20 12/14/20 diltiazem HCl 360 mg capsule,24 1 cap PO DAILY 11/16/20 12/14/20 hr,extended release (Tiadylt ER) roflumilast 500 mcg tablet 1 tab PO DAILY 11/16/20 12/14/20 (Daliresp) rosuvastatin 5 mg tablet 1 tab PO BEDTIME 11/16/20 12/14/20 insulin lispro 100 unit/mL See Protocol SUBCUT TIDAC 12/14/20 12/14/20 subcutaneous solution (Humalog U-100 Insulin) ipratropium bromide 21 mcg (0.03 2 spray INTRANASAL BID 12/14/20 12/14/20 %) nasal spray lidocaine 5 % topical patch 1 patch TOPICAL DAILY 12/14/20 12/14/20 prednisone 10 mg tablet 20 mg PO DAILY 12/14/20 12/14/20 theophylline 400 mg 400 mg PO BID 12/14/20 12/14/20 capsule,extended release 24 hr (Arnoldo-24) Previous Rx's Medication Instructions Recorded dextromethorphan 5 mg-guaifenesin 20 ml PO Q4-6H PRN 14 Days #300 ml 03/20/20 50 mg/5 mL oral liquid (Robitussin Cough-Chest Congestion DM) tiotropium bromide 18 mcg capsule 1 cap INHALATION DAILY #30 inh 05/11/20 with inhalation device (Spiriva with HandiHaler) immune glob,gamma(IgG) 10 40 g IV Q4W #2 ea 06/16/20 nrdu-ivg-kqpr-IgA 0 to 50 mcg/mL IV solution arformoterol 15 mcg/2 mL solution 2 ml INHALATION Q12H 30 Days #120 09/20/20 for nebulization (Brovana) ml budesonide 0.5 mg/2 mL suspension 0.5 mg INHALATION BID #120 ml 09/20/20 for nebulization ipratropium 0.5 mg-albuterol 3 mg 3 ml INHALATION Q4H PRN #540 ml 10/30/20 (2.5 mg base)/3 mL nebulization soln nicotine (polacrilex) 2 mg gum 2 mg BUCCAL Q3H PRN 30 Days #100 ea 11/23/20 docusate sodium 100 mg capsule 100 mg PO DAILY #30 cap 11/24/20 sennosides 8.6 mg tablet (Natural 8.6 mg PO BEDTIME PRN #30 tab 11/24/20 Senna Laxative) codeine 10 mg-guaifenesin 100 mg/5 10 ml PO Q4-6H PRN #237 ml 12/14/20 mL oral liquid doxycycline hyclate 100 mg tablet 100 mg PO BID #20 tab 12/14/20 <Benedicto Padgett MD - Last Filed: 12/15/20 12:04> Allergies/Adverse Reactions: Allergies Allergy/AdvReac Type Severity Reaction Status Date / Time No Known Allergies Allergy Verified 11/24/20 10:27 [No Known Allergies*] <Benedicto Padgett MD - Last Filed: 12/15/20 12:04> Review of Systems Review of Systems: Yes all other systems are reviewed and are negative <Benedicto Padgett MD - Last Filed: 12/15/20 12:04> PMFSH Past Medical History Medical History: Medical History Asthma with acute exacerbation Asthma-COPD overlap syndrome Asthma-COPD overlap syndrome Chronic respiratory failure Essential hypertension Hyperlipidemia, unspecified Hypogammaglobulinemia Metabolic alkalosis with respiratory acidosis Respiratory failure, acute and chronic Tachycardia Tobacco dependence Type 2 diabetes mellitus with unspecified complications <Benedicto Padgett MD - Last Filed: 12/15/20 12:04> Surgical History: Surgical History H/O tubal ligation <Benedicto Padgett MD - Last Filed: 12/15/20 12:04> Family History Family History: Family History Father Diabetes Other Asthma <Benedicto Padgett MD - Last Filed: 12/15/20 12:04> Social History Social History: Social History Household Members: Significant Other and Children Household Members Other:: 3 Housing: Apartment Do you presently have visiting nurse or other home services: Yes Alcohol intake: never Patient Tobacco Use Status: Current someday Tobacco user Tobacco use type: Cigarette Years Smoked: 20 years Second Hand Smoke Exposure: No Substance Use Type: Former Substance User Advance Directives: No Advance Directives Date on File: 11/16/20 service: No Current occupational status: disabled <Benedicto Padgett MD - Last Filed: 12/15/20 12:04> Physical Exam Vital Signs: Vital Signs: Last Vital Signs Temp 98.1 F 12/14/20 19:18 Pulse 95 12/14/20 20:58 Resp 20 12/14/20 20:58 BP 128/60 12/14/20 20:58 Pulse Ox 94 12/14/20 20:58 Oxygen Flow Rate 3 12/14/20 17:47 Body Mass Index 42.7 <Benedicto Padgett MD - Last Filed: 12/15/20 12:04> Vital Signs: Last Vital Signs Temp 98.1 F 12/14/20 19:18 Pulse 95 12/14/20 20:58 Resp 20 12/14/20 20:58 BP 128/60 12/14/20 20:58 Pulse Ox 94 12/14/20 20:58 Oxygen Flow Rate 3 12/14/20 17:47 Body Mass Index 42.7 <MAUREEN Reveles - Last Filed: 12/15/20 09:38> Appearance: Alert. Oriented X3. Moderate respiratory distress obese with short neck Eyes: No pallor or icterus ENT: Pharynx normal. Oral Mucosa moist Neck: Normal inspection. Neck supple. CVS: Normal heart rate and rhythm. Pulses normal. Respiratory: No respiratory distress. Equal air entry bilateral, bilateral wheezing and rhonchi no crackles Abdomen: Soft and nontender. Bowel sounds are present, no mass palpable, Skin: Skin warm and dry. Normal skin color. Normal skin turgor. Extremities: No lower extremity edema. No calf tenderness Neuro: Oriented X 3. No motor deficit. <Benedicto Padgett MD - Last Filed: 12/15/20 12:04> Course Course Course Narrative: Called patient with positive blood cultures 1 of 2 growing gram positive cocci in chains, concerning for possible Strep bacteremia. asl interpreter used to discuss results, concerns and need for re-evaluation and repeat cultures in the ER. She expressed understanding and will come to the ER now for evaluation. <MAUREEN Reveles - Last Filed: 12/15/20 09:38> MDM - SOB/Dyspnea MDM Narrative Medical decision making narrative: Patient with chronic asthma/COPD overlap syndrome with sleep apnea using CPAP in the night on oxygen at home saturation improved after nebulizing treatment patient already on prednisone. Chest x-ray negative for infiltrate patient preferred to go home does not want to stay in the hospital at this time patient is saturating 94% on 2 L after nebulizing treatment will discharge patient home advised to report to the ER if gets worse advised patient to increase the dose of prednisone to 40 mg blood cultures were done but patient has no signs of infection other than chronic lung disease normal lactic acid level chronic respiratory acidosis and metabolic alkalosis. <Benedicto Padgett MD - Last Filed: 12/15/20 12:04> Lab Data Attestation: I reviewed the patient's lab results. <Benedicto Padgett MD - Last Filed: 12/15/20 12:04> Result diagrams: : 12/14/20 18:39 12/14/20 18:40 <Benedicto Padgett MD - Last Filed: 12/15/20 12:04> Labs: Lab Results 12/14/20 12/14/20 12/14/20 Range/Units 18:39 18:39 18:40 WBC 13.6 H (4.8-10.8) X10*3/uL RBC 4.22 (4.20-5.50) X10*6/uL Hgb 13.2 (12.0-16.0) g/dl Hct 41.4 (37-47) % MCV 98.1 H (80-98) fL MCH 31.3 (27.0-33.0) pg MCHC 31.9 (31.0-35.0) g/dl RDW 13.8 (11.0-16.0) % Plt Count 284 (160-400) X10*3/uL MPV 9.1 L (9.4-12.3) fL Immature Gran % (Auto) 1.0 H (0.0-0.4) % Neut % (Auto) 92.4 H (45-73) % Lymph % (Auto) 4.1 L (20-40) % Sterling % (Auto) 2.3 (2-11) % Eos % (Auto) 0.0 (0-4) % Baso % (Auto) 0.2 (0-2) % Lymph # (Auto) 0.6 L (1.2-4.9) X10*3/uL Sterling # (Auto) 0.3 (0.1-1.2) X10*3/uL Eos # (Auto) 0.0 (0.0-0.4) X10*3/uL Baso # (Auto) 0.0 (0.0-0.2) X10*3/uL Abs Immat Gran (auto) 0.14 H (0.00-0.03) X10*3/uL Absolute Neuts (auto) 12.6 H (2.0-8.3) X10*3/uL Absolute Nucleated RBC 0.000 (0.0-0.012) X10*3/uL Nucleated RBC % (auto) 0.0 (0.0-0.2) /100WBC Smear Tech's Comments VERIFIED VBG pH (7.32-7.43) VBG pCO2 mmHg VBG pO2 mmHg VBG HCO3 (22-26) mmol/L VBG O2 Saturation % VBG Base Excess mmol/L Sodium 136 (135-145) mmol/L Potassium 4.6 (3.3-5.1) mmol/L Chloride 88 L (96-108) mmol/L Carbon Dioxide 40 H* (22-29) mmol/L Anion Gap 13 (12-20) BUN 13 (9-16) mg/dL Creatinine 0.70 (0.5-1.4) mg/dL Estim Creat Clear Calc 105.7 Estimated GFR > 60 Random Glucose 239 H (60-115) mg/dL Lactic Acid (0.5-2.0) mmol/L Calcium 9.9 (8.4-10.2) mg/dL COVID-19 (PAPO) Negative (Negative) COVID-19 Clin Com See Note 12/14/20 12/14/20 Range/Units 18:40 18:46 WBC (4.8-10.8) X10*3/uL RBC (4.20-5.50) X10*6/uL Hgb (12.0-16.0) g/dl Hct (37-47) % MCV (80-98) fL MCH (27.0-33.0) pg MCHC (31.0-35.0) g/dl RDW (11.0-16.0) % Plt Count (160-400) X10*3/uL MPV (9.4-12.3) fL Immature Gran % (Auto) (0.0-0.4) % Neut % (Auto) (45-73) % Lymph % (Auto) (20-40) % Sterling % (Auto) (2-11) % Eos % (Auto) (0-4) % Baso % (Auto) (0-2) % Lymph # (Auto) (1.2-4.9) X10*3/uL Sterling # (Auto) (0.1-1.2) X10*3/uL Eos # (Auto) (0.0-0.4) X10*3/uL Baso # (Auto) (0.0-0.2) X10*3/uL Abs Immat Gran (auto) (0.00-0.03) X10*3/uL Absolute Neuts (auto) (2.0-8.3) X10*3/uL Absolute Nucleated RBC (0.0-0.012) X10*3/uL Nucleated RBC % (auto) (0.0-0.2) /100WBC Smear Tech's Comments VBG pH 7.43 (7.32-7.43) VBG pCO2 69 mmHg VBG pO2 75 mmHg VBG HCO3 47 H (22-26) mmol/L VBG O2 Saturation 94.0 % VBG Base Excess 18.7 mmol/L Sodium (135-145) mmol/L Potassium (3.3-5.1) mmol/L Chloride (96-108) mmol/L Carbon Dioxide (22-29) mmol/L Anion Gap (12-20) BUN (9-16) mg/dL Creatinine (0.5-1.4) mg/dL Estim Creat Clear Calc Estimated GFR Random Glucose (60-115) mg/dL Lactic Acid 1.3 (0.5-2.0) mmol/L Calcium (8.4-10.2) mg/dL COVID-19 (PAPO) (Negative) COVID-19 Clin Com <Benedicto Padgett MD - Last Filed: 12/15/20 12:04> Lab Results 12/14/20 12/14/20 12/14/20 Range/Units 18:39 18:39 18:40 WBC 13.6 H (4.8-10.8) X10*3/uL RBC 4.22 (4.20-5.50) X10*6/uL Hgb 13.2 (12.0-16.0) g/dl Hct 41.4 (37-47) % MCV 98.1 H (80-98) fL MCH 31.3 (27.0-33.0) pg MCHC 31.9 (31.0-35.0) g/dl RDW 13.8 (11.0-16.0) % Plt Count 284 (160-400) X10*3/uL MPV 9.1 L (9.4-12.3) fL Immature Gran % (Auto) 1.0 H (0.0-0.4) % Neut % (Auto) 92.4 H (45-73) % Lymph % (Auto) 4.1 L (20-40) % Sterling % (Auto) 2.3 (2-11) % Eos % (Auto) 0.0 (0-4) % Baso % (Auto) 0.2 (0-2) % Lymph # (Auto) 0.6 L (1.2-4.9) X10*3/uL Sterling # (Auto) 0.3 (0.1-1.2) X10*3/uL Eos # (Auto) 0.0 (0.0-0.4) X10*3/uL Baso # (Auto) 0.0 (0.0-0.2) X10*3/uL Abs Immat Gran (auto) 0.14 H (0.00-0.03) X10*3/uL Absolute Neuts (auto) 12.6 H (2.0-8.3) X10*3/uL Absolute Nucleated RBC 0.000 (0.0-0.012) X10*3/uL Nucleated RBC % (auto) 0.0 (0.0-0.2) /100WBC Smear Tech's Comments VERIFIED VBG pH (7.32-7.43) VBG pCO2 mmHg VBG pO2 mmHg VBG HCO3 (22-26) mmol/L VBG O2 Saturation % VBG Base Excess mmol/L Sodium 136 (135-145) mmol/L Potassium 4.6 (3.3-5.1) mmol/L Chloride 88 L (96-108) mmol/L Carbon Dioxide 40 H* (22-29) mmol/L Anion Gap 13 (12-20) BUN 13 (9-16) mg/dL Creatinine 0.70 (0.5-1.4) mg/dL Estim Creat Clear Calc 105.7 Estimated GFR > 60 Random Glucose 239 H (60-115) mg/dL Lactic Acid (0.5-2.0) mmol/L Calcium 9.9 (8.4-10.2) mg/dL COVID-19 (PAPO) Negative (Negative) COVID-19 Clin Com See Note 12/14/20 12/14/20 Range/Units 18:40 18:46 WBC (4.8-10.8) X10*3/uL RBC (4.20-5.50) X10*6/uL Hgb (12.0-16.0) g/dl Hct (37-47) % MCV (80-98) fL MCH (27.0-33.0) pg MCHC (31.0-35.0) g/dl RDW (11.0-16.0) % Plt Count (160-400) X10*3/uL MPV (9.4-12.3) fL Immature Gran % (Auto) (0.0-0.4) % Neut % (Auto) (45-73) % Lymph % (Auto) (20-40) % Sterling % (Auto) (2-11) % Eos % (Auto) (0-4) % Baso % (Auto) (0-2) % Lymph # (Auto) (1.2-4.9) X10*3/uL Sterling # (Auto) (0.1-1.2) X10*3/uL Eos # (Auto) (0.0-0.4) X10*3/uL Baso # (Auto) (0.0-0.2) X10*3/uL Abs Immat Gran (auto) (0.00-0.03) X10*3/uL Absolute Neuts (auto) (2.0-8.3) X10*3/uL Absolute Nucleated RBC (0.0-0.012) X10*3/uL Nucleated RBC % (auto) (0.0-0.2) /100WBC Smear Tech's Comments VBG pH 7.43 (7.32-7.43) VBG pCO2 69 mmHg VBG pO2 75 mmHg VBG HCO3 47 H (22-26) mmol/L VBG O2 Saturation 94.0 % VBG Base Excess 18.7 mmol/L Sodium (135-145) mmol/L Potassium (3.3-5.1) mmol/L Chloride (96-108) mmol/L Carbon Dioxide (22-29) mmol/L Anion Gap (12-20) BUN (9-16) mg/dL Creatinine (0.5-1.4) mg/dL Estim Creat Clear Calc Estimated GFR Random Glucose (60-115) mg/dL Lactic Acid 1.3 (0.5-2.0) mmol/L Calcium (8.4-10.2) mg/dL COVID-19 (PAPO) (Negative) COVID-19 Clin Com <MAUREEN Reveles - Last Filed: 12/15/20 09:38> Discharge Plan Discharge Clinical Impression: Asthma-COPD overlap syndrome <Benedicto Padgett MD - Last Filed: 12/15/20 12:04> Patient Disposition: Home, Self-Care <Benedicto Padgett MD - Last Filed: 12/15/20 12:04> Instructions: Chronic Bronchitis (ED) <Benedicto Padgett MD - Last Filed: 12/15/20 12:04> Additional Instructions: Increase your prednisone to 40 mg daily for 3 days Continue nebulizing treatment Cough syrup and antibiotic as advised Report to the ER if increased shortness of breath <Benedicto Padgett MD - Last Filed: 12/15/20 12:04> Prescriptions: New codeine-guaifenesin 10-100 mg/5 mL liquid 10 ml PO Q4-6H PRN (Reason: cough) Qty: 237 RF: 0 doxycycline hyclate 100 mg tablet 100 mg PO BID Qty: 20 RF: 0 No Action Robitussin Cough-Chest Tristan DM 5-50 mg/5 mL liquid 20 ml PO Q4-6H PRN (Reason: cough) 14 Days Qty: 300 RF: 5 tiotropium bromide [Spiriva with HandiHaler] 18 mcg capsule, w/inhalation device 1 cap inhalation DAILY Qty: 30 RF: 11 immun glob G-pab-gnsc-IgA 0-50 10 gram recon soln 40 g IV Q4W Qty: 2 RF: 12 ipratropium-albuterol 0.5 mg-3 mg(2.5 mg base)/3 mL solution for nebulization 3 ml inhalation Q4H PRN (Reason: for wheezing) Qty: 540 RF: 6 gabapentin 100 mg capsule 1 cap PO DAILY@1200 RF: 0 Lantus U-100 Insulin 100 unit/mL solution 45 unit subcut BEDTIME RF: 0 diltiazem HCl [Tiadylt ER] 360 mg capsule,extended release 24 hr 1 cap PO DAILY RF: 0 chlorthalidone 25 mg tablet 1 tab PO DAILY RF: 0 rosuvastatin 5 mg tablet 1 tab PO BEDTIME RF: 0 Daliresp 500 mcg tablet 1 tab PO DAILY RF: 0 lidocaine 5 % adhesive patch,medicated 1 patch topical DAILY RF: 0 ipratropium bromide 21 mcg (0.03 %) spray,non-aerosol 2 spray intranasal BID RF: 0 insulin lispro [Humalog U-100 Insulin] 100 unit/mL solution See Protocol sliding scale dose subcut TIDAC RF: 0 prednisone 10 mg tablet 20 mg PO DAILY RF: 0 Arnoldo-24 400 mg capsule,extended release 24hr 400 mg PO BID RF: 0 montelukast 10 mg tablet 10 mg PO DAILY RF: 0 albuterol sulfate [ProAir HFA] 90 mcg/actuation HFA aerosol inhaler 2 puff inhalation Q6H PRN (Reason: Shortness Of Breath Or Wheezing) RF: 0 loratadine [Claritin] 10 mg tablet 10 mg PO DAILY RF: 0 metformin 500 mg tablet 500 mg PO BID RF: 0 pantoprazole 40 mg tablet,delayed release (DR/EC) 40 mg PO DAILY RF: 0 lisinopril 40 mg tablet 40 mg PO DAILY RF: 0 zolpidem [Ambien] 10 mg tablet 10 mg PO BEDTIME PRN (Reason: Sleep) RF: 0 methadone 10 mg tablet 49 mg PO DAILY RF: 0 lamotrigine [Lamictal] 150 mg tablet 75 mg PO BID RF: 0 clonazepam 1 mg tablet 1 mg PO BID PRN (Reason: Anxiety) RF: 0 docusate sodium 100 mg capsule 100 mg PO DAILY Qty: 30 RF: 3 sennosides [Natural Senna Laxative] 8.6 mg tablet 8.6 mg PO BEDTIME PRN (Reason: constipation) Qty: 30 RF: 3 Brovana 15 mcg/2 mL solution for nebulization 2 ml inhalation Q12H 30 Days Qty: 120 RF: 11 budesonide 0.5 mg/2 mL suspension for nebulization 0.5 mg inhalation BID Qty: 120 RF: 11 nicotine (polacrilex) 2 mg gum 2 mg buccal Q3H PRN (Reason: nicotine cravings) 30 Days Qty: 100 RF: 3 <Benedicto Padgett MD - Last Filed: 12/15/20 12:04> Interventions: ED Discharge Assessment Last Done: 12/14/20 23:17 <Benedicto Padgett MD - Last Filed: 12/15/20 12:04> Discharge Date/Time: 12/14/20 23:19 <Benedicto Padgett MD - Last Filed: 12/15/20 12:04>
--- NOTE | 2020-12-14 18:00 | ECG_ITS ---
Test Reason : DYSPNEA Blood Pressure : / mmHG Vent. Rate : 088 BPM Atrial Rate : 088 BPM P-R Int : 136 ms QRS Dur : 070 ms QT Int : 370 ms P-R-T Axes : 063 030 049 degrees QTc Int : 447 ms Normal sinus rhythm Normal ECG When compared with ECG of 16-NOV-2020 00:34, No significant change was found Referred By: Benedicto Padgett Electronically Signed By:CANDI VARGAS
[2020-12-14] MEDS: Albuterol Sulfate (0.083%) 2.5 MG/3 ML VIAL.NEB 5 MG INHALE (18:15)
--- NOTE | 2020-12-14 18:30 | PC.NURSE ---
pt to ed, at bedside with pt. Pt on monitor with HR 98. pt on 2.5L NC with po 95%. Pt denies any complaints. Pt remains alert, respirations N/L. IV placed to left FA. Pt is a difficult stick. Labs being drawn by tech. X-ray in room for cxr. will continue to monitor pt.
[2020-12-14 18:50] LABS: Venous Blood Gas Refer to POC result
[2020-12-14 18:51] LABS: VBG Base Excess 18.7 mmol/L; VBG HCO3 47 mmol/L (22-26); VBG pCO2 69 mmHg; VBG pH 7.43 (7.32-7.43); VBG pO2 75 mmHg
[2020-12-14] MEDS: methylPREDNISolone Sod Succ 125 MG/2 ML VIAL IVPUSH (18:56)
[2020-12-14 18:59] LABS: Lactic Acid 1.3 mmol/L (0.5-2.0)
[2020-12-14 18:59] LABS: Basophils Percent Auto 0.2 % (0-2); Hematocrit 41.4 % (37-47); Hemoglobin 13.2 g/dl (12.0-16.0); Imm Gran Abs Auto 0.14 X10*3/uL (0.00-0.03); Lymphocytes Absolute Auto 0.6 X10*3/uL (1.2-4.9); Lymphocytes Percent Auto 4.1 % (20-40); MANUAL DIFF FLAG SCAN; Mean Corpuscular HGB Conc 31.9 g/dl (31.0-35.0); Mean Corpuscular Hemoglobin 31.3 pg (27.0-33.0); Mean Corpuscular Volume 98.1 fL (80-98); Mean Platelet Volume 9.1 fL (9.4-12.3); Monocytes Absolute Auto 0.3 X10*3/uL (0.1-1.2); Monocytes Percent Auto 2.3 % (2-11); Neutrophils Absolute Auto 12.6 X10*3/uL (2.0-8.3); Neutrophils Percent Auto 92.4 % (45-73); Platelet Count 284 X10*3/uL (160-400); Red Blood Count 4.22 X10*6/uL (4.20-5.50); Red Cell Distribution Width 13.8 % (11.0-16.0); SCAN SMEAR FLAG 1; White Blood Count 13.6 X10*3/uL (4.8-10.8)
[2020-12-14 19:08] LABS: COVID-19 Test Negative (Negative)
[2020-12-14 19:09] LABS: Anion Gap 13 (12-20); Blood Urea Nitrogen 13 mg/dL (9-16); Calcium 9.9 mg/dL (8.4-10.2); Carbon Dioxide 40 mmol/L (22-29); Chloride 88 mmol/L (96-108); Creatinine Clr Calc Pharmacy 105.7; Estimated Glomerular Filt Rate > 60; Glucose Random 239 mg/dL (60-115); Potassium 4.6 mmol/L (3.3-5.1); Sodium 136 mmol/L (135-145)
--- NOTE | 2020-12-14 19:10 | PC.NURSE ---
Respiratory aware of treatment.
[2020-12-14 19:18] VITALS: BP 122/58; PULSE 96; RESP 18; TEMP 36.7; O2SAT 93
[2020-12-14 19:19] LABS: SLIDE REVIEW VERIFIED
--- NOTE | 2020-12-14 19:52 | PC.NURSE ---
respiratory in room for tx. Pt in NAD.
[2020-12-14] MEDS: Albuterol/Iprat 2.5/0.5MG 3 ML AMPUL.NEB INHALE (19:55)
[2020-12-14 20:37] VITALS: BP 130/80; PULSE 90; RESP 18
[2020-12-14] MEDS: cefTRIAXone sodium 1 GM in 0.9 % Sodium Chloride 50 ML IV (20:57)
[2020-12-14 20:58] VITALS: BP 128/60; PULSE 95; RESP 20; O2SAT 94
--- NOTE | 2020-12-14 21:02 | PC.NURSE ---
ROCEPHIN UP AND RUNNING W/O DIFFICULTY. SITE INTACT. WILL CONTINUE TO MONITOR PT.
--- NOTE | 2020-12-14 22:23 | PHA.MEDREC ---
Pharmacy Consult ? Medication Reconciliation Pharmacy has completed the medication reconciliation. Patient reports being on lamotrigine for depression however there is fill history on the external claim history. She only takes gabapentin once a day instead of BID. She does take methadone at home, will dianna to call the clinic to verify. She reports the clinic is on [facility]. Jyoti Camacho, [place]
== END 2020-12-14 23:19 | disposition home or self-care (01) ==
PROVIDERS: Emergency Provider Internal Medicine; PCP Family Medicine
DX: J44.9 Chronic obstructive pulmonary disease, unspecified (principal); R06.02 Shortness of breath; Z20.822 Contact with and (suspected) exposure to COVID-19; F17.210 Nicotine dependence, cigarettes, uncomplicated; Z71.6 Tobacco abuse counseling; Z79.899 Other long term (current) drug therapy
CPT/HCPCS: 36415; 71045; 80048; 82803; 83605; 85025; 87040; 87077; 87186; 87205; 87635; 93005; 96365; 96375; 99283; 99284; J0696; J2930

== ENCOUNTER 2020-12-15 10:49 | Inpatient (IN) | payer MEDICAID, SELFPAY ==
--- NOTE | ~2020-12-15 | XR_ITS ---
EXAMINATION: XR CHEST CLINICAL INFORMATION: Dyspnea. Evaluate for pneumonia COMPARISON: Chest 12/14/2020 TECHNIQUE: Frontal view of the chest was obtained. FINDINGS: The lungs are well-expanded acute pneumonic process. Heart size and pulmonary vascularity is normal. There are multiple bilateral healed rib fractures with callus formation. XR/XR chest 1V IMPRESSION: Unremarkable chest examination.
[2020-12-15 10:51] VITALS: BP 124/77; PULSE 115; RESP 16; TEMP 36.6; O2SAT 96; BMI 39.6
--- NOTE | 2020-12-15 11:36 | ED.RECABL ---
HPI - Recheck/Abnormal Lab/Rx General Chief Complaint: Recheck/Abnormal Lab/Rx Stated Complaint: abnormal labs Time Seen by Provider: 12/15/20 11:31 Source: patient and old records reviewed Mode of arrival: ambulatory Limitations: no limitations History of Present Illness complaint: abnormal lab Initial visit (ago): day(s) (yesterday for COPD did not want to be admitted) Initial visit for: other (COPD ) Returns today for: called because of abnormal lab/test Description of abnormal result: 1/2 GPC in chains reported Symptoms since prior visit: improved Context: called for abnormal lab result Associated symptoms: none Treatments prior to arrival: other (states she feels fine does not want to be admitted will get repeat labs done aware this could be bacteremia vs contaminant) Related Data Home Medications Medication Instructions Recorded Confirmed albuterol sulfate 90 mcg/actuation 2 puff INHALATION Q6H PRN 12/30/19 12/14/20 aerosol inhaler (ProAir HFA) clonazepam 1 mg tablet 1 mg PO BID PRN 12/30/19 12/14/20 lamotrigine 150 mg tablet 75 mg PO BID 12/30/19 12/14/20 (Lamictal) lisinopril 40 mg tablet 40 mg PO DAILY 12/30/19 12/14/20 loratadine 10 mg tablet (Claritin) 10 mg PO DAILY 12/30/19 12/14/20 metformin 500 mg tablet 500 mg PO BID 12/30/19 12/14/20 methadone 10 mg tablet 49 mg PO DAILY 12/30/19 11/16/20 montelukast 10 mg tablet 10 mg PO DAILY 12/30/19 12/14/20 pantoprazole 40 mg tablet,delayed 40 mg PO DAILY 12/30/19 12/14/20 release zolpidem 10 mg tablet (Ambien) 10 mg PO BEDTIME PRN 12/30/19 12/14/20 gabapentin 100 mg capsule 1 cap PO DAILY@1200 10/14/20 12/14/20 insulin glargine 100 unit/mL 45 unit SUBCUT BEDTIME 10/14/20 12/14/20 subcutaneous solution (Lantus U-100 Insulin) chlorthalidone 25 mg tablet 1 tab PO DAILY 11/16/20 12/14/20 diltiazem HCl 360 mg capsule,24 1 cap PO DAILY 11/16/20 12/14/20 hr,extended release (Tiadylt ER) roflumilast 500 mcg tablet 1 tab PO DAILY 11/16/20 12/14/20 (Daliresp) rosuvastatin 5 mg tablet 1 tab PO BEDTIME 11/16/20 12/14/20 insulin lispro 100 unit/mL See Protocol SUBCUT TIDAC 12/14/20 12/14/20 subcutaneous solution (Humalog U-100 Insulin) ipratropium bromide 21 mcg (0.03 2 spray INTRANASAL BID 12/14/20 12/14/20 %) nasal spray lidocaine 5 % topical patch 1 patch TOPICAL DAILY 12/14/20 12/14/20 prednisone 10 mg tablet 20 mg PO DAILY 12/14/20 12/14/20 theophylline 400 mg 400 mg PO BID 12/14/20 12/14/20 capsule,extended release 24 hr (Arnoldo-24) Previous Rx's Medication Instructions Recorded dextromethorphan 5 mg-guaifenesin 20 ml PO Q4-6H PRN 14 Days #300 ml 03/20/20 50 mg/5 mL oral liquid (Robitussin Cough-Chest Congestion DM) tiotropium bromide 18 mcg capsule 1 cap INHALATION DAILY #30 inh 05/11/20 with inhalation device (Spiriva with HandiHaler) immune glob,gamma(IgG) 10 40 g IV Q4W #2 ea 06/16/20 fmig-gob-bjip-IgA 0 to 50 mcg/mL IV solution arformoterol 15 mcg/2 mL solution 2 ml INHALATION Q12H 30 Days #120 09/20/20 for nebulization (Brovana) ml budesonide 0.5 mg/2 mL suspension 0.5 mg INHALATION BID #120 ml 09/20/20 for nebulization ipratropium 0.5 mg-albuterol 3 mg 3 ml INHALATION Q4H PRN #540 ml 10/30/20 (2.5 mg base)/3 mL nebulization soln nicotine (polacrilex) 2 mg gum 2 mg BUCCAL Q3H PRN 30 Days #100 ea 11/23/20 docusate sodium 100 mg capsule 100 mg PO DAILY #30 cap 11/24/20 sennosides 8.6 mg tablet (Natural 8.6 mg PO BEDTIME PRN #30 tab 11/24/20 Senna Laxative) codeine 10 mg-guaifenesin 100 mg/5 10 ml PO Q4-6H PRN #237 ml 12/14/20 mL oral liquid doxycycline hyclate 100 mg tablet 100 mg PO BID #20 tab 12/14/20 Allergies Allergy/AdvReac Type Severity Reaction Status Date / Time No Known Allergies Allergy Verified 11/24/20 10:27 [No Known Allergies*] Review of Systems Review of Systems: Constitutional : No Weight loss, No Fever, No Chills, No Fatigue, No Malaise ENT/Mouth : No sore throat, No Rhinorrhea Eyes: No Eye Pain, No Swelling, No Redness Cardiovascular : No Chest Pain, No SOB, No Dyspnea on Exertion, No Orthopnea, No Edema, No Palpitations Respiratory : pos Cough, No Sputum, No Wheezing Gastrointestinal : No Nausea, No Vomiting, No Diarrhea, No Constipation, No abdominal Pain, No Hematochezia, No Melena Genitourinary : No Dysuria, No Urinary Frequency, No Hematuria, Musculoskeletal : No joint pain, No Myalgias, No Joint Swelling Skin : No Skin Lesions, No rash Neuro : No Weakness, No Numbness, No Dizziness, No Headache Psych : No Anxiety/Panic, No Depression Heme/Lymph: No Bruising, No Bleeding,No Lymphadenopathy Endocrine : No Polyuria, No Polydipsia All other systems reviewed and are negative [facility] Past Medical History Attestation statement: The following information was validated with the patient. Medical History Asthma with acute exacerbation Asthma-COPD overlap syndrome Asthma-COPD overlap syndrome Chronic respiratory failure Essential hypertension Hyperlipidemia, unspecified Hypogammaglobulinemia Metabolic alkalosis with respiratory acidosis Respiratory failure, acute and chronic Tachycardia Tobacco dependence Type 2 diabetes mellitus with unspecified complications Surgical History H/O tubal ligation Family History Family History Father Diabetes Other Asthma Social History Social History Household Members: Significant Other and Children Household Members Other:: 3 Housing: Apartment Do you presently have visiting nurse or other home services: Yes Alcohol intake: never Patient Tobacco Use Status: Current someday Tobacco user Tobacco use type: Cigarette Years Smoked: 20 years Second Hand Smoke Exposure: No Substance Use Type: Former Substance User Advance Directives: No Advance Directives Date on File: 11/16/20 service: No Current occupational status: disabled Physical Exam Vital Signs: Vital Signs: Last Vital Signs Temp 97.9 F 12/15/20 10:51 Pulse 115 H 12/15/20 10:51 Resp 16 12/15/20 10:51 BP 124/77 12/15/20 10:51 Pulse Ox 96 12/15/20 10:51 Oxygen Flow Rate 2 12/15/20 10:51 Body Mass Index 39.6 Appearance: Alert. Oriented X3. No acute distress. Eyes: Pupils equal, round and reactive to light. ENT: Pharynx normal. Neck: Normal inspection. Neck supple. CVS: tachycardic heart rate and rhythm. Pulses normal. Respiratory: No respiratory distress. Breath sounds diminished. Abdomen: Soft and nontender. Skin: Skin warm and dry. Normal skin color. Normal skin turgor. Extremities: No lower extremity edema. No calf ttp Neuro: Oriented X 3. No motor deficit. No sensory deficit. Course Course Course Narrative: given WBC count, tachycardia, lactic acidosis and possible + culture though I have a lower suspicion she needs to be observed until cultures return negative - agrees to stay at this time MDM - Recheck/Abnormal Lab/Rx MDM Narrative Medical decision making narrative: 50 yo female well known to us for her chroinc SOB and tachycardia she is on home O2 and baseline steroids she comes in today with c/o 1/2 GPC in chains she denies symptoms she states she will not stay overnight in the hospital - she agrees to repeat testing and cultures, will give one dose of ceftriaxone while she is here. Clinically it seems atypical for her to have bacteremia particularly if she has no fevers, baseline WBC count, non productive cough. I did explain that this was either bacteremia vs contaminant. Patient states she understands Lab Data Result diagrams: 12/15/20 12:07 12/15/20 12:07 Labs: Lab Results 12/15/20 12/15/20 12/15/20 Range/Units 12:07 12:07 12:07 WBC 20.5 H (4.8-10.8) X10*3/uL RBC 4.33 (4.20-5.50) X10*6/uL Hgb 13.5 (12.0-16.0) g/dl Hct 42.3 (37-47) % MCV 97.7 (80-98) fL MCH 31.2 (27.0-33.0) pg MCHC 31.9 (31.0-35.0) g/dl RDW 13.7 (11.0-16.0) % Plt Count 320 (160-400) X10*3/uL MPV 8.9 L (9.4-12.3) fL Immature Gran % (Auto) 0.8 H (0.0-0.4) % Neut % (Auto) 89.2 H (45-73) % Lymph % (Auto) 3.7 L (20-40) % [place] % (Auto) 6.2 (2-11) % Eos % (Auto) 0.0 (0-4) % Baso % (Auto) 0.1 (0-2) % Lymph # (Auto) 0.8 L (1.2-4.9) X10*3/uL [place] # (Auto) 1.3 H (0.1-1.2) X10*3/uL Eos # (Auto) 0.0 (0.0-0.4) X10*3/uL Baso # (Auto) 0.0 (0.0-0.2) X10*3/uL Abs Immat Gran (auto) 0.16 H (0.00-0.03) X10*3/uL Absolute Neuts (auto) 18.3 H (2.0-8.3) X10*3/uL Absolute Nucleated RBC 0.000 (0.0-0.012) X10*3/uL Nucleated RBC % (auto) 0.0 (0.0-0.2) /100WBC VBG pH (7.32-7.43) VBG pCO2 mmHg VBG pO2 mmHg VBG HCO3 (22-26) mmol/L VBG O2 Saturation % VBG Base Excess mmol/L Sodium 138 (135-145) mmol/L Potassium 4.0 (3.3-5.1) mmol/L Chloride 92 L (96-108) mmol/L Carbon Dioxide 36 H (22-29) mmol/L Anion Gap 14 (12-20) BUN 15 (9-16) mg/dL Creatinine 0.75 (0.5-1.4) mg/dL Estim Creat Clear Calc 94.6 Estimated GFR > 60 Random Glucose 163 H (60-115) mg/dL Lactic Acid 2.6 H* (0.5-2.0) mmol/L Calcium 9.8 (8.4-10.2) mg/dL Magnesium 2.1 (1.6-2.6) mg/dL Total Bilirubin 0.4 (0.0-1.0) mg/dL Direct Bilirubin 0.2 (0.0-0.5) mg/dL AST 23 (5-31) U/L ALT 40 H (0-31) U/L Alkaline Phosphatase 77 D (39-117) U/L Total Protein 7.3 (6.5-8.0) g/dL Albumin 3.9 (3.5-5.0) g/dL COVID-19 (PAPO) (Negative) COVID-19 Clin Com 12/15/20 12/15/20 Range/Units 12:07 12:13 WBC (4.8-10.8) X10*3/uL RBC (4.20-5.50) X10*6/uL Hgb (12.0-16.0) g/dl Hct (37-47) % MCV (80-98) fL MCH (27.0-33.0) pg MCHC (31.0-35.0) g/dl RDW (11.0-16.0) % Plt Count (160-400) X10*3/uL MPV (9.4-12.3) fL Immature Gran % (Auto) (0.0-0.4) % Neut % (Auto) (45-73) % Lymph % (Auto) (20-40) % [place] % (Auto) (2-11) % Eos % (Auto) (0-4) % Baso % (Auto) (0-2) % Lymph # (Auto) (1.2-4.9) X10*3/uL [place] # (Auto) (0.1-1.2) X10*3/uL Eos # (Auto) (0.0-0.4) X10*3/uL Baso # (Auto) (0.0-0.2) X10*3/uL Abs Immat Gran (auto) (0.00-0.03) X10*3/uL Absolute Neuts (auto) (2.0-8.3) X10*3/uL Absolute Nucleated RBC (0.0-0.012) X10*3/uL Nucleated RBC % (auto) (0.0-0.2) /100WBC VBG pH 7.44 H (7.32-7.43) VBG pCO2 56 mmHg VBG pO2 66 mmHg VBG HCO3 38 H (22-26) mmol/L VBG O2 Saturation 91.0 % VBG Base Excess 12.2 mmol/L Sodium (135-145) mmol/L Potassium (3.3-5.1) mmol/L Chloride (96-108) mmol/L Carbon Dioxide (22-29) mmol/L Anion Gap (12-20) BUN (9-16) mg/dL Creatinine (0.5-1.4) mg/dL Estim Creat Clear Calc Estimated GFR Random Glucose (60-115) mg/dL Lactic Acid (0.5-2.0) mmol/L Calcium (8.4-10.2) mg/dL Magnesium (1.6-2.6) mg/dL Total Bilirubin (0.0-1.0) mg/dL Direct Bilirubin (0.0-0.5) mg/dL AST (5-31) U/L ALT (0-31) U/L Alkaline Phosphatase (39-117) U/L Total Protein (6.5-8.0) g/dL Albumin (3.5-5.0) g/dL COVID-19 (PAPO) Negative (Negative) COVID-19 Clin Com See Note Discharge Plan Discharge Clinical Impression: Blood bacterial culture positive, Leukocytosis, Acidosis, lactic Patient Disposition: Admitted As Inpatient Prescriptions: No Action Robitussin Cough-Chest [place]istan DM 5-50 mg/5 mL liquid 20 ml PO Q4-6H PRN (Reason: cough) 14 Days Qty: 300 RF: 5 tiotropium bromide [Spiriva with HandiHaler] 18 mcg capsule, w/inhalation device 1 cap inhalation DAILY Qty: 30 RF: 11 immun glob L-vsf-rcve-IgA 0-50 10 gram recon soln 40 g IV Q4W Qty: 2 RF: 12 ipratropium-albuterol 0.5 mg-3 mg(2.5 mg base)/3 mL solution for nebulization 3 ml inhalation Q4H PRN (Reason: for wheezing) Qty: 540 RF: 6 gabapentin 100 mg capsule 1 cap PO DAILY@1200 RF: 0 Lantus U-100 Insulin 100 unit/mL solution 45 unit subcut BEDTIME RF: 0 diltiazem HCl [Tiadylt ER] 360 mg capsule,extended release 24 hr 1 cap PO DAILY RF: 0 chlorthalidone 25 mg tablet 1 tab PO DAILY RF: 0 rosuvastatin 5 mg tablet 1 tab PO BEDTIME RF: 0 Daliresp 500 mcg tablet 1 tab PO DAILY RF: 0 lidocaine 5 % adhesive patch,medicated 1 patch topical DAILY RF: 0 ipratropium bromide 21 mcg (0.03 %) spray,non-aerosol 2 spray intranasal BID RF: 0 insulin lispro [Humalog U-100 Insulin] 100 unit/mL solution See Protocol sliding scale dose subcut TIDAC RF: 0 prednisone 10 mg tablet 20 mg PO DAILY RF: 0 Arnoldo-24 400 mg capsule,extended release 24hr 400 mg PO BID RF: 0 codeine-guaifenesin 10-100 mg/5 mL liquid 10 ml PO Q4-6H PRN (Reason: cough) Qty: 237 RF: 0 doxycycline hyclate 100 mg tablet 100 mg PO BID Qty: 20 RF: 0 montelukast 10 mg tablet 10 mg PO DAILY RF: 0 albuterol sulfate [ProAir HFA] 90 mcg/actuation HFA aerosol inhaler 2 puff inhalation Q6H PRN (Reason: Shortness Of Breath Or Wheezing) RF: 0 loratadine [Claritin] 10 mg tablet 10 mg PO DAILY RF: 0 metformin 500 mg tablet 500 mg PO BID RF: 0 pantoprazole 40 mg tablet,delayed release (DR/EC) 40 mg PO DAILY RF: 0 lisinopril 40 mg tablet 40 mg PO DAILY RF: 0 zolpidem [Ambien] 10 mg tablet 10 mg PO BEDTIME PRN (Reason: Sleep) RF: 0 methadone 10 mg tablet 49 mg PO DAILY RF: 0 lamotrigine [Lamictal] 150 mg tablet 75 mg PO BID RF: 0 clonazepam 1 mg tablet 1 mg PO BID PRN (Reason: Anxiety) RF: 0 docusate sodium 100 mg capsule 100 mg PO DAILY Qty: 30 RF: 3 sennosides [Natural Senna Laxative] 8.6 mg tablet 8.6 mg PO BEDTIME PRN (Reason: constipation) Qty: 30 RF: 3 Brovana 15 mcg/2 mL solution for nebulization 2 ml inhalation Q12H 30 Days Qty: 120 RF: 11 budesonide 0.5 mg/2 mL suspension for nebulization 0.5 mg inhalation BID Qty: 120 RF: 11 nicotine (polacrilex) 2 mg gum 2 mg buccal Q3H PRN (Reason: nicotine cravings) 30 Days Qty: 100 RF: 3
[2020-12-15 12:13] LABS: MANUAL DIFF FLAG NO
[2020-12-15 12:16] LABS: Venous Blood Gas Refer to POC result
[2020-12-15 12:17] LABS: Basophils Percent Auto 0.1 % (0-2); Hematocrit 42.3 % (37-47); Hemoglobin 13.5 g/dl (12.0-16.0); Imm Gran Abs Auto 0.16 X10*3/uL (0.00-0.03); Imm Gran Pct Auto 0.8 % (0.0-0.4); Lymphocytes Absolute Auto 0.8 X10*3/uL (1.2-4.9); Lymphocytes Percent Auto 3.7 % (20-40); Mean Corpuscular HGB Conc 31.9 g/dl (31.0-35.0); Mean Corpuscular Hemoglobin 31.2 pg (27.0-33.0); Mean Corpuscular Volume 97.7 fL (80-98); Mean Platelet Volume 8.9 fL (9.4-12.3); Monocytes Absolute Auto 1.3 X10*3/uL (0.1-1.2); Monocytes Percent Auto 6.2 % (2-11); Neutrophils Absolute Auto 18.3 X10*3/uL (2.0-8.3); Neutrophils Percent Auto 89.2 % (45-73); Platelet Count 320 X10*3/uL (160-400); Red Blood Count 4.33 X10*6/uL (4.20-5.50); Red Cell Distribution Width 13.7 % (11.0-16.0); White Blood Count 20.5 X10*3/uL (4.8-10.8)
[2020-12-15 12:17] LABS: VBG Base Excess 12.2 mmol/L; VBG HCO3 38 mmol/L (22-26); VBG pCO2 56 mmHg; VBG pH 7.44 (7.32-7.43); VBG pO2 66 mmHg
[2020-12-15] MEDS: cefTRIAXone sodium 1 GM in 0.9 % Sodium Chloride 50 ML IV (12:17)
[2020-12-15 12:35] LABS: COVID-19 Test Negative (Negative); IDNOW Serial# 9DD0AD1C
[2020-12-15 12:36] LABS: Alanine Aminotransferase 40 U/L (0-31); Albumin Level 3.9 g/dL (3.5-5.0); Alkaline Phosphatase 77 U/L (39-117); Anion Gap 14 (12-20); Aspartate Amino Transferase 23 U/L (5-31); Bilirubin Direct 0.2 mg/dL (0.0-0.5); Bilirubin Total 0.4 mg/dL (0.0-1.0); Blood Urea Nitrogen 15 mg/dL (9-16); Calcium 9.8 mg/dL (8.4-10.2); Carbon Dioxide 36 mmol/L (22-29); Chloride 92 mmol/L (96-108); Creatinine Clr Calc Pharmacy 94.6; Estimated Glomerular Filt Rate > 60; Glucose Random 163 mg/dL (60-115); Magnesium 2.1 mg/dL (1.6-2.6); Sodium 138 mmol/L (135-145); Total Protein 7.3 g/dL (6.5-8.0)
[2020-12-15 12:40] LABS: Lactic Acid 2.6 mmol/L (0.5-2.0)
[2020-12-15] MEDS: 0.9 % Sodium Chloride 500 ML IV (13:04)
[2020-12-15 14:12] LABS: Reflex Lactate? Lactic Acid Added
[2020-12-15 15:59] LABS: C Reactive Protein 0.83 mg/dL (< or = 0.50)
--- NOTE | 2020-12-15 16:11 | P.HPHOSP_ITS ---
History of Present Illness Date of Service: 12/15/20 Chief Complaint: positive blood culture 50yo M with chronic hypoxic/hypercapneic respiratory failure on home BiPAP and O2 [2.5 L by [place]] due to asthma/COPD overlap syndrome on chronic prednisone 20 mg/d, obesity, tobacco abuse, hypogammoglobulinemia, HTN, and DM2 who presented to the ED yesterday with 3 days of dyspnea and hypoxia [SaO2 in the 80s] which resolved after the patient increased her oxygen to 3 L. She was sent home with instructions to increase prednisone to 40 mg/d for 3 days. However, 1 of 2 blood cultures grew Gram-positive cocci in chains, so she was called back to the ED for evaluation and admission. Last IV immunoglobulin infusion a few days ago. She is not vaccinated against COVID-19. She denies any fever. No skin infections. She endorses cough, dyspnea, and wheezing. In the ED, she was noted to be septic with leukocytosis and tachycardia. Lactate was elevated to 2.6. She was given ceftriaxone IV. Review of Systems Review of Systems: Yes all other systems are reviewed and are negative [facility] Medical History Asthma with acute exacerbation Asthma-COPD overlap syndrome Asthma-COPD overlap syndrome Chronic respiratory failure Essential hypertension Hyperlipidemia, unspecified Hypogammaglobulinemia Metabolic alkalosis with respiratory acidosis Respiratory failure, acute and chronic Tachycardia Tobacco dependence Type 2 diabetes mellitus with unspecified complications Family History Father Diabetes Other Asthma Pertinent family history: as above Surgical History H/O tubal ligation Social History Household Members: Significant Other and Children Household Members Other:: 3 Housing: Apartment Do you presently have visiting nurse or other home services: Yes Alcohol intake: never Patient Tobacco Use Status: Current someday Tobacco user Tobacco use type: Cigarette Years Smoked: 20 years Second Hand Smoke Exposure: No Substance Use Type: Former Substance User Advance Directives: No Advance Directives Date on File: 11/16/20 service: No Current occupational status: disabled Meds Allergies Allergy/AdvReac Type Severity Reaction Status Date / Time No Known Allergies Allergy Verified 11/24/20 10:27 [No Known Allergies*] Active Medications: Current Medications Acetaminophen (Acetaminophen 325 Mg Tablet) 650 mg PO Q6H PRN PRN Reason: Pain, Mild (Pain Scale 1-3) Albuterol Sulfate (Albuterol Sulfate 90 Mcg 8 Gm Inhaler) 2 puff INHALE Q4H PRN PRN Reason: Shortness Of Breath Or Wheezing Albuterol/Ipratropium (Albuterol/Iprat 2.5/0.5mg 3 Ml Ampul.Neb) 3 ml INHALE Q4H PRN PRN Reason: for wheezing Atorvastatin Calcium (Atorvastatin Calcium 20 Mg Tablet) 20 mg PO BEDTIME [facility] Dextrose (Dextrose 50 % 25 Gm/50 Ml Vial) 25 gm IVPUSH Q15M PRN; Protocol PRN Reason: per Hypoglycemia Standing Ord. Diltiazem HCl (Diltiazem Hcl Cd 180 Mg Cap.Er.24h) 360 mg PO DAILY [facility]; Protocol Docusate Sodium (Docusate Sodium 100 Mg Capsule) 100 mg PO DAILY [facility] Enoxaparin Sodium (Enoxaparin Sodium 40 Mg/0.4 Ml Syringe) 40 mg SUBCUT Q24H [facility] Gabapentin (Gabapentin 100 Mg Capsule) 100 mg PO DAILY@1200 [facility] Glucose (Glucose Gel 15 Gm Gel..Gram.) 15 gm PO Q15M PRN; Protocol PRN Reason: per Hypoglycemia Standing Ord. Hydrochlorothiazide (Hydrochlorothiazide 25 Mg Tablet) 25 mg PO DAILY [facility] Ceftriaxone Sodium 2 gm/ (Sodium Chloride) 50 mls @ 100 mls/hr IV Q24H [facility] Vancomycin HCl 1,250 mg/ (Sodium Chloride) 250 mls @ 166.667 mls/hr IV Q12H [facility] Insulin Glargine (Insulin Glargine,Hum.Rec.Anlog 100 Unit/Ml 10 Ml Vial) 45 unit SUBCUT BEDTIME [facility] Insulin Human Lispro (Insulin Lispro 100 Unit/Ml 3 Ml Vial) 0 unit SUBCUT QIDACHS [facility]; Protocol Lidocaine (Lidocaine 4 % Patch Adh..Patch) 1 patch TRANSDERMA DAILY [facility] Lisinopril (Lisinopril 40 Mg Tablet) 40 mg PO DAILY [facility]; Protocol Loratadine (Loratadine 10 Mg Tablet) 10 mg PO DAILY [facility] Nicotine Polacrilex (Nicotine Polacrilex 2 Mg Gum) 2 mg BUCCAL Q3H PRN PRN Reason: nicotine cravings Non-Formulary Medication (Roflumilast [Daliresp]) 1 tab PO DAILY [facility] Ondansetron HCl (Ondansetron Hcl 4 Mg/2 Ml Vial) 4 mg IVPUSH Q8H PRN PRN Reason: Nausea and Vomiting Pharmacy Consult (Consult Rx Perform Med Rec) 1 each MISCELLANE STAT STA Stop: 12/15/20 15:12 Senna (Sennosides 8.6 Mg Tablet) 8.6 mg PO BEDTIME PRN PRN Reason: constipation Sodium Chloride (0.9 % Sodium Chloride Flush 3 Ml Syringe) 3 ml IVFLUSH QSHIFT [facility] Theophylline (Theophylline Anhydrous Er 400 Mg Tab.Er.24h) 400 mg PO BID [facility] Tiotropium [place] (Tiotropium [place] 18 Mcg Cap.W.Dev) 1 puff INHALE RDAILY [facility] Home Medications Medication Instructions Recorded Confirmed Last Taken Type albuterol sulfate 90 mcg/actuation 2 puff INHALATION Q4H PRN 12/30/19 12/15/20 11/16/20 History aerosol inhaler (ProAir HFA) clonazepam 1 mg tablet 1 mg PO BID PRN 12/30/19 12/14/20 11/16/20 History lamotrigine 150 mg tablet 75 mg PO BID 12/30/19 12/14/20 1 Day Ago History (Lamictal) ~10/13/20 lisinopril 40 mg tablet 40 mg PO DAILY 12/30/19 12/15/20 12/14/20 History loratadine 10 mg tablet (Claritin) 10 mg PO DAILY 12/30/19 12/15/20 12/14/20 History metformin 500 mg tablet 500 mg PO BID 12/30/19 12/14/20 12/14/20 History methadone 10 mg tablet 49 mg PO DAILY 12/30/19 11/16/20 11/16/20 History montelukast 10 mg tablet 10 mg PO DAILY 12/30/19 12/14/20 12/14/20 History pantoprazole 40 mg tablet,delayed 40 mg PO DAILY 12/30/19 12/14/20 12/14/20 History release zolpidem 10 mg tablet (Ambien) 10 mg PO BEDTIME PRN 12/30/19 12/14/20 11/16/20 History gabapentin 100 mg capsule 1 cap PO DAILY@1200 10/14/20 12/15/20 12/14/20 History insulin glargine 100 unit/mL 45 unit SUBCUT BEDTIME 10/14/20 12/15/20 12/13/20 History subcutaneous solution (Lantus U-100 Insulin) chlorthalidone 25 mg tablet 1 tab PO DAILY 11/16/20 12/15/20 Unknown History diltiazem HCl 360 mg capsule,24 1 cap PO DAILY 11/16/20 12/15/20 12/14/20 His tory hr,extended release (Tiadylt ER) roflumilast 500 mcg tablet 1 tab PO DAILY 11/16/20 12/15/20 12/14/20 History (Daliresp) rosuvastatin 5 mg tablet 1 tab PO BEDTIME 11/16/20 12/15/20 12/13/20 History insulin lispro 100 unit/mL See Protocol SUBCUT TIDAC 12/14/20 12/15/20 12/14/20 History subcutaneous solution (Humalog U-100 Insulin) ipratropium bromide 21 mcg (0.03 2 spray INTRANASAL BID 12/14/20 12/15/20 Unknown History %) nasal spray lidocaine 5 % topical patch 1 patch TOPICAL DAILY 12/14/20 12/15/20 12/14/20 History prednisone 10 mg tablet 20 mg PO DAILY 12/14/20 12/14/20 12/14/20 History theophylline 400 mg 400 mg PO BID 12/14/20 12/15/20 12/14/20 History capsule,extended release 24 hr (Arnoldo-24) Physical Exam Vital Signs and Narrative: Vital Signs: Last Vital Signs Temp 97.9 F 12/15/20 10:51 Pulse 115 H 12/15/20 10:51 Resp 16 12/15/20 10:51 BP 124/77 12/15/20 10:51 Pulse Ox 96 12/15/20 10:51 Oxygen Flow Rate 2 12/15/20 10:51 Body Mass Index 39.6 Gen: in no acute distress HEENT: sclera anicteric, moist mucus membranes Neck: supple Lungs: diminished bilaterally Heart: distant, RRR, no murmurs Abd: soft, obese, non-tender, non-distended Ext: no edema Skin: warm/well-perfused, no skin lesions Neuro: alert and oriented x3, no focal findings Psych: appropriate affect Results Labs CBC and Chem 7: 12/15/20 12:07 12/15/20 12:07 Labs: Laboratory Results - last 24 hr 12/15/20 12/15/20 12/15/20 12:07 12:07 12:07 MCV 97.7 MCH 31.2 MCHC 31.9 RDW 13.7 Plt Count 320 MPV 8.9 L Immature Gran % (Auto) 0.8 H Neut % (Auto) 89.2 H Lymph % (Auto) 3.7 L [place] % (Auto) 6.2 Eos % (Auto) 0.0 Baso % (Auto) 0.1 Lymph # (Auto) 0.8 L [place] # (Auto) 1.3 H Eos # (Auto) 0.0 Baso # (Auto) 0.0 Abs Immat Gran (auto) 0.16 H Absolute Neuts (auto) 18.3 H Absolute Nucleated RBC 0.000 Nucleated RBC % (auto) 0.0 VBG pH VBG pCO2 VBG pO2 VBG HCO3 VBG O2 Saturation VBG Base Excess Anion Gap 14 Estim Creat Clear Calc 94.6 Estimated GFR > 60 Random Glucose 163 H Lactic Acid 2.6 H* Calcium 9.8 Magnesium 2.1 Total Bilirubin 0.4 Direct Bilirubin 0.2 AST 23 ALT 40 H Alkaline Phosphatase 77 D C-Reactive Protein 0.83 H Total Protein 7.3 Albumin 3.9 COVID-19 ([facility]) COVID-19 Clin [facility] 12/15/20 12/15/20 12:07 12:13 MCV MCH MCHC RDW Plt Count MPV Immature Gran % (Auto) Neut % (Auto) Lymph % (Auto) [place] % (Auto) Eos % (Auto) Baso % (Auto) Lymph # (Auto) [place] # (Auto) Eos # (Auto) Baso # (Auto) Abs Immat Gran (auto) Absolute Neuts (auto) Absolute Nucleated RBC Nucleated RBC % (auto) VBG pH 7.44 H VBG pCO2 56 VBG pO2 66 VBG HCO3 38 H VBG O2 Saturation 91.0 VBG Base Excess 12.2 Anion Gap Estim Creat Clear Calc Estimated GFR Random Glucose Lactic Acid Calcium Magnesium Total Bilirubin Direct Bilirubin AST ALT Alkaline Phosphatase C-Reactive Protein Total Protein Albumin COVID-19 (PAPO) Negative COVID-19 Clin Com See Note Imaging Radiologist's Impressions: Impressions Chest X-Ray 12/15/20 11:34 IMPRESSION: Unremarkable chest examination. Assessment and Plan (1) Severe sepsis: Status: Acute (2) Bacteremia: Status: Acute 50yo M with chronic hypoxic/hypercapneic respiratory failure on home BiPAP and O2 due to steroid-dependent asthma/COPD overlap syndrome, obesity, tobacco abuse, hypogammoglobulinemia, HTN, and DM2 who was evaluated yesterday in the ED for asthma/COPD exacerbation and called back to the hospital due to positive bl ood culture for Gram-positive cocci in chains. # severe sepsis # Gram-positive cocci - Given the pt's immunosuppression [chronic steroids, hypogammoglobulinemia], quite elevated risk of being truly bacteremic. Will admit to [facility] and give vancomycin and ceftriaxone and follow blood culture results, including repeat cultures drawn in ED today. TTE if proves to be bacteremic. ID consultation. Will give NS 1L @ 100 mL/hr. # acute asthma/COPD exacerbation - prednisone 40 mg/d, then taper after a few days. continue theophylline, tiotropium, roflumilast, prn nebs # HTN - continue thiazide, lisinopril, diltiazem # HLD - continue statin # tobacco abuse - NRT # VTE ppx - LMWH Quality Stroke Does the patient have a stroke diagnosis?: No VTE Prior VTE?: No VTE Risk Level:: Medical - moderate - high VTE Device Contraindication: N/A - Device Ordered VTE Drug Contraindication: N/A - Med Ordered
[2020-12-15 16:12] LABS: Estimated Average Glucose 157 mg/dL; Hemoglobin A1c % 7.1 %
--- NOTE | 2020-12-15 16:36 | PHA.MEDREC ---
Pharmacy Consult ? Medication Reconciliation Pharmacy has completed the medication reconciliation. spoke with patient in ED. Med rec was completed last night by pharmacist as well. Pt reports being on methadone- need to verify dose. She reports being on lamictal but not filled at pharmacy in a significant amount of time.
[2020-12-15] MEDS: 0.9 % Sodium Chloride Flush 3 ML SYRINGE IVFLUSH ×2 (17:12→20:24)
--- NOTE | 2020-12-15 17:24 | PC.NURSE ---
report given to MAIN Landa. Pt will be transported by education diagnostician.
[2020-12-15] MEDS: Albuterol Sulfate 90 MCG 8 GM INHALER 2 PUFF INHALE (17:27)
[2020-12-15 17:28] VITALS: PULSE 97; O2SAT 91
[2020-12-15] MEDS: predniSONE 20 MG TABLET 40 MG PO (17:32)
[2020-12-15] MEDS: Enoxaparin Sodium 40 MG/0.4 ML SYRINGE SUBCUT (17:34)
[2020-12-15] MEDS: vancomycin HCL 1,250 MG in 0.9 % Sodium Chloride 250 ML 166.67 MG IV (17:34)
[2020-12-15] MEDS: 0.9 % Sodium Chloride 1,000 ML 100 ML IVCONT (17:35)
[2020-12-15 17:40] LABS: ~Lactic Acid-LAB USE ONLY 3.2 mmol/L (0.5-2.0)
[2020-12-15] MEDS: Insulin Lispro 100 UNIT/ML 3 ML VIAL SUBCUT ×2 (17:58→20:23)
[2020-12-15 18:55] VITALS: BP 141/63; PULSE 97; RESP 22; TEMP 36; O2SAT 90
[2020-12-15 19:15] VITALS: BP 141/63; PULSE 94; RESP 22; TEMP 36.1; O2SAT 90
[2020-12-15 19:15] LABS: Reflex Lactate? 2 Y
[2020-12-15 19:39] LABS: Glucose, Whole Blood 195 mg/dL (60-115)
[2020-12-15 19:47] LABS: ~Lactic Acid-LAB USE ONLY 2.4 mmol/L (0.5-2.0)
[2020-12-15 20:03] LABS: Cancel Lactic Acid Canceled
[2020-12-15] MEDS: Albuterol/Iprat 2.5/0.5MG 3 ML AMPUL.NEB INHALE (20:12)
[2020-12-15 20:13] VITALS: PULSE 103; O2SAT 92
[2020-12-15] MEDS: Insulin Glargine,Hum.rec.anlog 100 UNIT/ML 10 ML VIAL 45 UNIT SUBCUT (20:23)
[2020-12-15] MEDS: Theophylline Anhydrous ER 400 MG TAB.ER.24H PO (20:24)
[2020-12-15] MEDS: Atorvastatin Calcium 20 MG TABLET PO (20:24)
[2020-12-15 23:26] VITALS: BP 142/74; PULSE 98; RESP 20; TEMP 36.5; O2SAT 93
[2020-12-16] VITALS (14 sets, daily range): BP systolic 118–140; BP diastolic 61–86; PULSE 89–120; RESP 14–25; TEMP 36.2–37.1; O2SAT 91–98
[2020-12-16] MEDS: clonazePAM 1 MG TABLET PO (00:37)
[2020-12-16 03:44] LABS: Appearance Urine CLEAR; Color Urine YELLOW; Glucose Urine UA NEG (NEG); Leukocyte Esterase Urine NEG (NEG); Nitrite Urine NEG (NEG); PH 7.5 (5.0-8.0); UACC Culture Trigger NO; Urine Blood NEG (NEG); Urine Ketones NEG (NEG); Urine Protein NEG (NEG-TRACE)
[2020-12-16] MEDS: vancomycin HCL 1,250 MG in 0.9 % Sodium Chloride 250 ML 166.67 MG IV ×2 (05:39→17:36)
[2020-12-16 07:09] LABS: Hematocrit 38.5 % (37-47); Hemoglobin 11.9 g/dl (12.0-16.0); Mean Corpuscular HGB Conc 30.9 g/dl (31.0-35.0); Mean Corpuscular Hemoglobin 30.7 pg (27.0-33.0); Mean Corpuscular Volume 99.5 fL (80-98); Mean Platelet Volume 9.2 fL (9.4-12.3); Platelet Count 294 X10*3/uL (160-400); Red Blood Count 3.87 X10*6/uL (4.20-5.50); White Blood Count 20.9 X10*3/uL (4.8-10.8)
[2020-12-16 07:24] LABS: Anion Gap 11 (12-20); Blood Urea Nitrogen 14 mg/dL (9-16); Carbon Dioxide 38 mmol/L (22-29); Chloride 95 mmol/L (96-108); Creatinine Clr Calc Pharmacy 120.2; Estimated Glomerular Filt Rate > 60; Glucose Random 128 mg/dL (60-115); Potassium 4.1 mmol/L (3.3-5.1); Sodium 140 mmol/L (135-145)
[2020-12-16 07:28] LABS: Glucose, Whole Blood 106 mg/dL (60-115)
[2020-12-16] MEDS: Albuterol/Iprat 2.5/0.5MG 3 ML AMPUL.NEB INHALE ×4 (07:41→20:10)
[2020-12-16] MEDS: Loratadine 10 MG TABLET PO (08:08)
[2020-12-16] MEDS: hydroCHLOROthiazide 25 MG TABLET PO (08:08)
[2020-12-16] MEDS: dilTIAZem HCL CD 180 MG CAP.ER.24H 360 MG PO (08:08)
[2020-12-16] MEDS: Theophylline Anhydrous ER 400 MG TAB.ER.24H PO ×2 (08:08→22:16)
[2020-12-16] MEDS: predniSONE 20 MG TABLET 40 MG PO (08:08)
[2020-12-16] MEDS: 0.9 % Sodium Chloride Flush 3 ML SYRINGE IVFLUSH ×3 (08:08→22:20)
[2020-12-16] MEDS: lisinopriL 40 MG TABLET PO (08:08)
[2020-12-16] MEDS: Docusate Sodium 100 MG CAPSULE PO (08:08)
--- NOTE | 2020-12-16 09:50 | HO.PM.IMPN ---
Subjective Subjective Date of Service: 12/16/20 Interval History: Breathing at baseline Adherent with BiPAP No fever Review of Systems Review of Systems: Yes all other systems are reviewed and are negative Physical Exam Vital Signs: Vital Signs: Last Vital Signs Temp 97.5 F 12/16/20 07:30 Pulse 120 H 12/16/20 08:08 Resp 20 12/16/20 07:30 BP 128/80 12/16/20 08:08 Pulse Ox 92 12/16/20 07:30 Oxygen Flow Rate 2 12/15/20 10:51 Body Mass Index 39.6 Gen: in no acute distress HEENT: sclera anicteric, moist mucus membranes Neck: supple Lungs: soft exp wheezes bilaterally Heart: regular rate and rhythm, no murmurs Abd: soft, obese, non-tender, non-distended Ext: no edema Skin: warm/well-perfused Neuro: alert and oriented x3, no focal findings Psych: appropriate affect Objective Data Active Medications Acetaminophen (Acetaminophen 325 Mg Tablet) 650 mg PO Q6H PRN PRN Reason: Pain, Mild (Pain Scale 1-3) Albuterol Sulfate (Albuterol Sulfate 90 Mcg 8 Gm Inhaler) 2 puff INHALE Q4H PRN PRN Reason: Shortness Of Breath Or Wheezing Last Admin: 12/15/20 17:27 Dose: 2 puff Documented by: WILLIAM Albuterol/Ipratropium (Albuterol/Iprat 2.5/0.5mg 3 Ml Ampul.Neb) 3 ml INHALE Q4H PRN PRN Reason: for wheezing Last Admin: 12/16/20 07:41 Dose: 3 ml Documented by: WILLIAM Atorvastatin Calcium (Atorvastatin Calcium 20 Mg Tablet) 20 mg PO BEDTIME [facility] Last Admin: 12/15/20 20:24 Dose: 20 mg Documented by: NEELAM Clonazepam (Clonazepam 1 Mg Tablet) 1 mg PO BID PRN PRN Reason: Anxiety Last Admin: 12/16/20 00:37 Dose: 1 mg Documented by: NEELAM Dextrose (Dextrose 50 % 25 Gm/50 Ml Vial) 25 gm IVPUSH Q15M PRN; Protocol PRN Reason: per Hypoglycemia Standing Ord. Diltiazem HCl (Diltiazem Hcl Cd 180 Mg Cap.Er.24h) 360 mg PO DAILY [facility]; Protocol Last Admin: 12/16/20 08:08 Dose: 360 mg Documented by: LOYD Docusate Sodium (Docusate Sodium 100 Mg Capsule) 100 mg PO DAILY [facility] Last Admin: 12/16/20 08:08 Dose: 100 mg Documented by: LOYD Enoxaparin Sodium (Enoxaparin Sodium 40 Mg/0.4 Ml Syringe) 40 mg SUBCUT Q24H [facility] Last Admin: 12/15/20 17:34 Dose: 40 mg Documented by: KALLIE Gabapentin (Gabapentin 100 Mg Capsule) 100 mg PO DAILY@1200 [facility] Glucose (Glucose Gel 15 Gm Gel..Gram.) 15 gm PO Q15M PRN; Protocol PRN Reason: per Hypoglycemia Standing Ord. Hydrochlorothiazide (Hydrochlorothiazide 25 Mg Tablet) 25 mg PO DAILY [facility] Last Admin: 12/16/20 08:08 Dose: 25 mg Documented by: LOYD Ceftriaxone Sodium 2 gm/ (Sodium Chloride) 50 mls @ 100 mls/hr IV Q24H [facility] Vancomycin HCl 1,250 mg/ (Sodium Chloride) 250 mls @ 166.667 mls/hr IV Q12H [facility] Last Infusion: 12/16/20 07:15 Dose: 0 mls/hr Documented by: LOYD Insulin Glargine (Insulin Glargine,Hum.Rec.Anlog 100 Unit/Ml 10 Ml Vial) 45 unit SUBCUT BEDTIME [facility] Last Admin: 12/15/20 20:23 Dose: 45 unit Documented by: NEELAM Insulin Human Lispro (Insulin Lispro 100 Unit/Ml 3 Ml Vial) 0 unit SUBCUT QIDACHS [facility]; Protocol Last Admin: 12/16/20 07:32 Dose: Not Given Documented by: LOYD Non-Admin Reason: No Insulin Coverage Lidocaine (Lidocaine 4 % Patch Adh..Patch) 1 patch TRANSDERMA DAILY [facility] Lisinopril (Lisinopril 40 Mg Tablet) 40 mg PO DAILY [facility]; Protocol Last Admin: 12/16/20 08:08 Dose: 40 mg Documented by: LOYD Loratadine (Loratadine 10 Mg Tablet) 10 mg PO DAILY [facility] Last Admin: 12/16/20 08:08 Dose: 10 mg Documented by: LOYD Nicotine Polacrilex (Nicotine Polacrilex 2 Mg Gum) 2 mg BUCCAL Q3H PRN PRN Reason: nicotine cravings Non-Formulary Medication (Roflumilast [Daliresp]) 1 tab PO DAILY [facility] Ondansetron HCl (Ondansetron Hcl 4 Mg/2 Ml Vial) 4 mg IVPUSH Q8H PRN PRN Reason: Nausea and Vomiting Prednisone (Prednisone 20 Mg Tablet) 40 mg PO DAILY [facility] Last Admin: 12/16/20 08:08 Dose: 40 mg Documented by: LOYD Senna (Sennosides 8.6 Mg Tablet) 8.6 mg PO BEDTIME PRN PRN Reason: constipation Sodium Chloride (0.9 % Sodium Chloride Flush 3 Ml Syringe) 3 ml IVFLUSH QSHIFT [facility] Last Admin: 12/16/20 08:08 Dose: 3 ml Documented by: LOYD Theophylline (Theophylline Anhydrous Er 400 Mg Tab.Er.24h) 400 mg PO BID [facility] Last Admin: 12/16/20 08:08 Dose: 400 mg Documented by: LOYD Tiotropium [place] (Tiotropium [place] 18 Mcg Cap.W.Dev) 1 puff INHALE RDAILY [facility] Last Admin: 12/16/20 07:41 Dose: 1 puff Documented by: WILLIAM Labs CBC & Chem 7: 12/16/20 06:20 12/16/20 06:20 Labs: Laboratory Results - last 24 hr 12/15/20 12/15/20 12/15/20 12:07 12:07 12:07 MCV 97.7 MCH 31.2 MCHC 31.9 RDW 13.7 Plt Count 320 MPV 8.9 L Immature Gran % (Auto) 0.8 H Neut % (Auto) 89.2 H Lymph % (Auto) 3.7 L [place] % (Auto) 6.2 Eos % (Auto) 0.0 Baso % (Auto) 0.1 Lymph # (Auto) 0.8 L [place] # (Auto) 1.3 H Eos # (Auto) 0.0 Baso # (Auto) 0.0 Abs Immat Gran (auto) 0.16 H Absolute Neuts (auto) 18.3 H Absolute Nucleated RBC 0.000 Nucleated RBC % (auto) 0.0 VBG pH VBG pCO2 VBG pO2 VBG HCO3 VBG O2 Saturation VBG Base Excess Anion Gap 14 Estim Creat Clear Calc 94.6 Estimated GFR > 60 POC Glucose Random Glucose 163 H Estimat Average Glucose Hemoglobin A1c % Lactic Acid 2.6 H* Lactic Acid Fup @ 2Hr Lactic Acid Fup @ 4Hr Calcium 9.8 Magnesium 2.1 Total Bilirubin 0.4 Direct Bilirubin 0.2 AST 23 ALT 40 H Alkaline Phosphatase 77 D C-Reactive Protein 0.83 H Total Protein 7.3 Albumin 3.9 Urine Color Urine Appearance Urine pH Ur Specific [place] Urine Protein Urine Glucose (UA) Urine Ketones Urine Blood Urine Nitrite Ur Leukocyte Esterase COVID-19 ([facility]) COVID-19 Clin Com 12/15/20 12/15/20 12/15/20 12:07 12:07 12:13 MCV MCH MCHC RDW Plt Count MPV Immature Gran % (Auto) Neut % (Auto) Lymph % (Auto) [place] % (Auto) Eos % (Auto) Baso % (Auto) Lymph # (Auto) [place] # (Auto) Eos # (Auto) Baso # (Auto) Abs Immat Gran (auto) Absolute Neuts (auto) Absolute Nucleated RBC Nucleated RBC % (auto) VBG pH 7.44 H VBG pCO2 56 VBG pO2 66 VBG HCO3 38 H VBG O2 Saturation 91.0 VBG Base Excess 12.2 Anion Gap Estim Creat Clear Calc Estimated GFR POC Glucose Random Glucose Estimat Average Glucose 157 Hemoglobin A1c % 7.1 Lactic Acid Lactic Acid Fup @ 2Hr Lactic Acid Fup @ 4Hr Calcium Magnesium Total Bilirubin Direct Bilirubin AST ALT Alkaline Phosphatase C-Reactive Protein Total Protein Albumin Urine Color Urine Appearance Urine pH Ur Specific [place] Urine Protein Urine Glucose (UA) Urine Ketones Urine Blood Urine Nitrite Ur Leukocyte Esterase COVID-19 ([facility]AP[facility]) Negative COVID-19 Clin Com See Note 12/15/20 12/15/20 12/15/20 17:12 19:22 19:35 MCV MCH MCHC RDW Plt Count MPV Immature Gran % (Auto) Neut % (Auto) Lymph % (Auto) [place] % (Auto) Eos % (Auto) Baso % (Auto) Lymph # (Auto) [place] # (Auto) Eos # (Auto) Baso # (Auto) Abs Immat Gran (auto) Absolute Neuts (auto) Absolute Nucleated RBC Nucleated RBC % (auto) VBG pH VBG pCO2 VBG pO2 VBG HCO3 VBG O2 Saturation VBG Base Excess Anion Gap Estim Creat Clear Calc Estimated GFR POC Glucose 195 H Random Glucose Estimat Average Glucose Hemoglobin A1c % Lactic Acid Lactic Acid Fup @ 2Hr 3.2 H* Lactic Acid Fup @ 4Hr 2.4 H* Calcium Magnesium Total Bilirubin Direct Bilirubin AST ALT Alkaline Phosphatase C-Reactive Protein Total Protein Albumin Urine Color Urine Appearance Urine pH Ur Specific [place] Urine Protein Urine Glucose (UA) Urine Ketones Urine Blood Urine Nitrite Ur Leukocyte Esterase COVID-19 (PAPO) COVID-19 [employer] 12/16/20 12/16/20 12/16/20 03:32 06:20 06:20 MCV 99.5 H MCH 30.7 MCHC 30.9 L RDW 14.0 Plt Count 294 MPV 9.2 L Immature Gran % (Auto) Neut % (Auto) Lymph % (Auto) [place] % (Auto) Eos % (Auto) Baso % (Auto) Lymph # (Auto) [place] # (Auto) Eos # (Auto) Baso # (Auto) Abs Immat Gran (auto) Absolute Neuts (auto) Absolute Nucleated RBC 0.000 Nucleated RBC % (auto) 0.0 VBG pH VBG pCO2 VBG pO2 VBG HCO3 VBG O2 Saturation VBG Base Excess Anion Gap 11 L Estim Creat Clear Calc 120.2 Estimated GFR > 60 POC Glucose Random Glucose 128 H Estimat Average Glucose Hemoglobin A1c % Lactic Acid Lactic Acid Fup @ 2Hr Lactic Acid Fup @ 4Hr Calcium 9.0 D Magnesium Total Bilirubin Direct Bilirubin AST ALT Alkaline Phosphatase C-Reactive Protein Total Protein Albumin Urine Color YELLOW Urine Appearance CLEAR Urine pH 7.5 Ur Specific [place] 1.020 Urine Protein NEG Urine Glucose (UA) NEG Urine Ketones NEG Urine Blood NEG Urine Nitrite NEG Ur Leukocyte Esterase NEG COVID-19 ([facility]APO) COVID-19 [employer] 12/16/20 07:19 MCV MCH MCHC RDW Plt Count MPV Immature Gran % (Auto) Neut % (Auto) Lymph % (Auto) [place] % (Auto) Eos % (Auto) Baso % (Auto) Lymph # (Auto) [place] # (Auto) Eos # (Auto) Baso # (Auto) Abs Immat Gran (auto) Absolute Neuts (auto) Absolute Nucleated RBC Nucleated RBC % (auto) VBG pH VBG pCO2 VBG pO2 VBG HCO3 VBG O2 Saturation VBG Base Excess Anion Gap Estim Creat Clear Calc Estimated GFR POC Glucose 106 Random Glucose Estimat Average Glucose Hemoglobin A1c % Lactic Acid Lactic Acid Fup @ 2Hr Lactic Acid Fup @ 4Hr Calcium Magnesium Total Bilirubin Direct Bilirubin AST ALT Alkaline Phosphatase C-Reactive Protein Total Protein Albumin Urine Color Urine Appearance Urine pH Ur Specific [place] Urine Protein Urine Glucose (UA) Urine Ketones Urine Blood Urine Nitrite Ur Leukocyte Esterase COVID-19 (PAPO) COVID-19 Clin Com Assessment and Plan (1) Bacteremia: Status: Acute (2) Severe sepsis: Status: Acute (3) Blood bacterial culture positive: Status: Acute (4) Leukocytosis: Status: Acute (5) Asthma-COPD overlap syndrome: Status: Acute Assessment and Plan: hospital d#2 50yo M with chronic hypoxic/hypercapneic respiratory failure on home BiPAP and O2 due to steroid-dependent asthma/COPD overlap syndrome, obesity, tobacco abuse, hypogammoglobulinemia, HTN, and DM2 who was evaluated in the ED for asthma/COPD exacerbation on 12/14/20 and called back to the hospital 12/15/20 due to positive blood culture for Gram-positive cocci in chains. # severe sepsis # Gram-positive cocci - risky given pt's immunosuppression [chronic steroids, hypogammoglobulinemia]. continue vancomycin and ceftriaxone and follow blood culture results, including repeat cultures drawn in ED 12/15.? TTE if proves to be bacteremic.? ID consultation.? # acute asthma/COPD exacerbation - prednisone 40 mg/d, then taper after a few days back to baseline dose of 20 mg/d.? continue usual regimen theophylline, tiotropium, roflumilast, prn nebs # chronic hypoxic/hypercapneic respiratory failure - continue home O2 2.5L via NC + biPAP 01/11 for all naps/sleep # HTN - continue thiazide, lisinopril, diltiazem # HLD - continue statin # tobacco abuse - NRT # VTE ppx - LMWH Quality Stroke Does the patient have a stroke diagnosis?: No VTE Prior VTE?: No VTE Risk Level:: Medical - moderate - high VTE Device Contraindication: N/A - Device Ordered VTE Drug Contraindication: N/A - Med Ordered
[2020-12-16 11:21] LABS: Glucose, Whole Blood 198 mg/dL (60-115)
--- NOTE | 2020-12-16 12:02 | MHC.CM.PN ---
met with pt who lives with dgter pt has a rn hemodialysis and a vna she does notm remeber the agencey name pt has home02 and own transportation home when dcd
[2020-12-16] MEDS: cefTRIAXone sodium 2 GM in 0.9 % Sodium Chloride 50 ML IV (12:20)
[2020-12-16] MEDS: Gabapentin 100 MG CAPSULE PO (12:20)
[2020-12-16] MEDS: methADONE HCl 20 MG/2 ML ORAL.CONC 50 MG PO (12:20)
[2020-12-16] MEDS: Insulin Lispro 100 UNIT/ML 3 ML VIAL SUBCUT ×3 (12:35→22:15)
--- NOTE | 2020-12-16 13:47 | MHC.CM.PN ---
revisited pt ,pt gets methadone delivered [facility]
[2020-12-16] MEDS: Nicotine Polacrilex 2 MG GUM BUCCAL (14:32)
[2020-12-16 16:24] LABS: Glucose, Whole Blood 194 mg/dL (60-115)
[2020-12-16] MEDS: Enoxaparin Sodium 40 MG/0.4 ML SYRINGE SUBCUT (17:35)
[2020-12-16] MEDS: Nicotine 7 MG PATCH.TD24 TRANSDERMA (17:36)
[2020-12-16 21:36] LABS: Glucose, Whole Blood 167 mg/dL (60-115)
[2020-12-16] MEDS: Insulin Glargine,Hum.rec.anlog 100 UNIT/ML 10 ML VIAL 45 UNIT SUBCUT (22:15)
[2020-12-16] MEDS: Atorvastatin Calcium 20 MG TABLET PO (22:16)
[2020-12-17] VITALS (7 sets, daily range): BP systolic 104–126; BP diastolic 47–73; PULSE 84–109; RESP 18–20; TEMP 36.4–36.6; O2SAT 93–97
[2020-12-17] MEDS: Acetaminophen 325 MG TABLET 650 MG PO (04:28)
[2020-12-17] MEDS: vancomycin HCL 1,250 MG in 0.9 % Sodium Chloride 250 ML 166.67 MG IV (05:14)
[2020-12-17 05:28] LABS: Vancomycin Trough 8.5 mcg/mL (10.0-20.0)
[2020-12-17 06:52] LABS: Creatinine Clr Calc Pharmacy 105.8; Estimated Glomerular Filt Rate > 60
[2020-12-17] MEDS: Albuterol/Iprat 2.5/0.5MG 3 ML AMPUL.NEB INHALE ×2 (07:11→11:13)
[2020-12-17 07:29] LABS: Glucose, Whole Blood 114 mg/dL (60-115)
[2020-12-17] MEDS: Loratadine 10 MG TABLET PO (09:07)
[2020-12-17] MEDS: Docusate Sodium 100 MG CAPSULE PO (09:07)
[2020-12-17] MEDS: hydroCHLOROthiazide 25 MG TABLET PO (09:07)
[2020-12-17] MEDS: methADONE HCl 20 MG/2 ML ORAL.CONC 50 MG PO (09:07)
[2020-12-17] MEDS: Theophylline Anhydrous ER 400 MG TAB.ER.24H PO (09:07)
[2020-12-17] MEDS: lisinopriL 40 MG TABLET PO (09:08)
[2020-12-17] MEDS: dilTIAZem HCL CD 180 MG CAP.ER.24H 360 MG PO (09:08)
[2020-12-17] MEDS: predniSONE 20 MG TABLET 40 MG PO (09:08)
[2020-12-17] MEDS: Nicotine 7 MG PATCH.TD24 TRANSDERMA (09:08)
[2020-12-17] MEDS: 0.9 % Sodium Chloride Flush 3 ML SYRINGE IVFLUSH (09:09)
[2020-12-17] MEDS: Lidocaine 4 % Patch ADH..PATCH 1 PATCH TRANSDERMA (09:09)
[2020-12-17 09:34] LABS: Hematocrit 44.1 % (37-47); Hemoglobin 13.7 g/dl (12.0-16.0); Mean Corpuscular HGB Conc 31.1 g/dl (31.0-35.0); Mean Corpuscular Hemoglobin 30.8 pg (27.0-33.0); Mean Corpuscular Volume 99.1 fL (80-98); Platelet Count 318 X10*3/uL (160-400); Red Blood Count 4.45 X10*6/uL (4.20-5.50); Red Cell Distribution Width 14.3 % (11.0-16.0); White Blood Count 17.3 X10*3/uL (4.8-10.8)
--- NOTE | 2020-12-17 10:52 | HE.PHANOTE ---
PHARMACY DOSING ADDENDUM LOW TROUGH OF 8.5. ADJUSTED AUC TO TARGET HIGHER AUC OF 591 WITH PREDICTED THROUGH OF 18.3. NEXT TROUGH ORDERED FOR 12/18 @ 1700
[2020-12-17 11:25] LABS: Glucose, Whole Blood 173 mg/dL (60-115)
[2020-12-17] MEDS: Insulin Lispro 100 UNIT/ML 3 ML VIAL SUBCUT (11:37)
[2020-12-17] MEDS: Gabapentin 100 MG CAPSULE PO (11:37)
--- NOTE | 2020-12-17 12:27 | PM.DS ---
DS: Providers Provider Date of Service: 12/17/20 Date of admission: 12/15/20 15:43 Primary care physician: Kelli Benavides MD Consults: 12/15/20 15:35 Consult to Infectious Diseases Routine Consulting Provider: Joellen Oneill Reason for consultation: GPC bacteremia ?Strep DS: Diagnosis Discharge Diagnosis (1) Blood bacterial culture positive: Status: Acute (2) Leukocytosis: Status: Acute (3) Asthma-COPD overlap syndrome: Status: Acute (4) Asthma with COPD with exacerbation: Status: Acute (5) Tobacco abuse: Status: Acute DS: Summary Hospital Course Hospital Course: From my admission H+P, 12/15/20: 50yo M with chronic hypoxic/hypercapneic respiratory failure on home BiPAP and O2 [2.5 L by PA] due to asthma/COPD overlap syndrome on chronic prednisone 20 mg/d, obesity, tobacco abuse, hypogammoglobulinemia, HTN, and DM2 who presented to the ED yesterday with 3 days of dyspnea and hypoxia [SaO2 in the 80s] which resolved after the patient increased her oxygen to 3 L. She was sent home with instructions to increase prednisone to 40 mg/d for 3 days. However, 1 of 2 blood cultures grew Gram-positive cocci in chains, so she was called back to the ED for evaluation and admission. Last IV immunoglobulin infusion a few days ago. She is not vaccinated against COVID-19. She denies any fever. No skin infections. She endorses cough, dyspnea, and wheezing. In the ED, she was noted to be septic with leukocytosis and tachycardia. Lactate was elevated to 2.6. She was given ceftriaxone IV. She was admitted to the [facility] on her usual home O2 and biPAP regimen. Due to elevated risk for sepsis and bacteremia, as the patient is on chronic steroids and has immune deficiency [hypogammoglobulinemia], she was treated with vancomycin and ceftriaxone pending return of the culture results. In the end, she grew Streptococcus salivarius from 1 of 2 blood cultures from 12/14 and this was suspected to be a contaminant. Leukocytosis was attributed to steroid use and lactic acidosis to bronchodilator use. She was treated with doxycycline and prednisone for astma/COPD exacerbation as per prior ED instructions on 12/14/20. She was discharged with instructions to take prednisone 40 mg for 1 more day, then return to prior dose of 20 mg daily; and to complete the course of doxycycline that had been prescribed. She should quit smoking and was prescribed nicotine patch to aid in this. She should follow up with her caul fat puller and her primary care doctor in 1-2 weeks. Time Spent with Patient Time attestation: Total time spent providing and/or coordinating discharge services: Discharge coordination time: Greater than 30 minutes Quality: Stroke Does the patient have a stroke diagnosis?: No Physical Exam Vital Signs: Vital Signs: Last Vital Signs Temp 97.9 F 12/17/20 11:55 Pulse 102 H 12/17/20 11:55 Resp 20 12/17/20 11:55 BP 126/71 12/17/20 11:55 Pulse Ox 95 12/17/20 11:55 Oxygen Flow Rate 2 12/15/20 10:51 Body Mass Index 39.6 Gen: in no acute distress HEENT: sclera anicteric, moist mucus membranes Neck: supple Lungs: diminished breath sounds Heart: regular rate and rhythm, no murmurs Abd: soft, obese, non-tender, non-distended Ext: no edema Skin: warm/well-perfused Neuro: alert and oriented x3, no focal findings Psych: appropriate affect DS: Data Data Completed and Pending Completed studies during hospitalization [Text1]: Laboratory Results WBC 17.3 X10*3/uL (4.8-10.8) H 12/17/20 09:11 RBC 4.45 X10*6/uL (4.20-5.50) 12/17/20 09:11 Hgb 13.7 g/dl (12.0-16.0) 12/17/20 09:11 Hct 44.1 % (37-47) 12/17/20 09:11 MCV 99.1 fL (80-98) H 12/17/20 09:11 MCH 30.8 pg (27.0-33.0) 12/17/20 09:11 MCHC 31.1 g/dl (31.0-35.0) 12/17/20 09:11 RDW 14.3 % (11.0-16.0) 12/17/20 09:11 Plt Count 318 X10*3/uL (160-400) 12/17/20 09:11 MPV 9.0 fL (9.4-12.3) L 12/17/20 09:11 Immature Gran % (Auto) 0.8 % (0.0-0.4) H 12/15/20 12:07 Neut % (Auto) 89.2 % (45-73) H 12/15/20 12:07 Lymph % (Auto) 3.7 % (20-40) L 12/15/20 12:07 [place] % (Auto) 6.2 % (2-11) 12/15/20 12:07 Eos % (Auto) 0.0 % (0-4) 12/15/20 12:07 Baso % (Auto) 0.1 % (0-2) 12/15/20 12:07 Lymph # (Auto) 0.8 X10*3/uL (1.2-4.9) L 12/15/20 12:07 [place] # (Auto) 1.3 X10*3/uL (0.1-1.2) H 12/15/20 12:07 Eos # (Auto) 0.0 X10*3/uL (0.0-0.4) 12/15/20 12:07 Baso # (Auto) 0.0 X10*3/uL (0.0-0.2) 12/15/20 12:07 Abs Immat Gran (auto) 0.16 X10*3/uL (0.00-0.03) H 12/15/20 12:07 Absolute Neuts (auto) 18.3 X10*3/uL (2.0-8.3) H 12/15/20 12:07 Absolute Nucleated RBC 0.000 X10*3/uL (0.0-0.012) 12/17/20 09:11 Nucleated RBC % (auto) 0.0 /100WBC (0.0-0.2) 12/17/20 09:11 VBG pH 7.44 (7.32-7.43) H 12/15/20 12:13 VBG pCO2 56 mmHg 12/15/20 12:13 VBG pO2 66 mmHg 12/15/20 12:13 VBG HCO3 38 mmol/L (22-26) H 12/15/20 12:13 VBG O2 Saturation 91.0 % 12/15/20 12:13 VBG Base Excess 12.2 mmol/L 12/15/20 12:13 Sodium 140 mmol/L (135-145) 12/16/20 06:20 Potassium 4.1 mmol/L (3.3-5.1) 12/16/20 06:20 Chloride 95 mmol/L (96-108) L 12/16/20 06:20 Carbon Dioxide 38 mmol/L (22-29) H 12/16/20 06:20 Anion Gap 11 (12-20) L 12/16/20 06:20 BUN 14 mg/dL (9-16) 12/16/20 06:20 Creatinine 0.67 mg/dL (0.5-1.4) 12/17/20 04:47 Estim Creat Clear Calc 105.8 12/17/20 04:47 Estimated GFR > 60 12/17/20 04:47 POC Glucose 173 mg/dL (60-115) H 12/17/20 11:18 Random Glucose 128 mg/dL (60-115) H 12/16/20 06:20 Estimat Average Glucose 157 mg/dL 12/15/20 12:07 Hemoglobin A1c % 7.1 % 12/15/20 12:07 Lactic Acid 2.6 mmol/L (0.5-2.0) H* 12/15/20 12:07 Lactic Acid Fup @ 2Hr 3.2 mmol/L (0.5-2.0) H* 12/15/20 17:12 Lactic Acid Fup @ 4Hr 2.4 mmol/L (0.5-2.0) H* 12/15/20 19:22 Calcium 9.0 mg/dL (8.4-10.2) D 12/16/20 06:20 Magnesium 2.1 mg/dL (1.6-2.6) 12/15/20 12:07 Total Bilirubin 0.4 mg/dL (0.0-1.0) 12/15/20 12:07 Direct Bilirubin 0.2 mg/dL (0.0-0.5) 12/15/20 12:07 AST 23 U/L (5-31) 12/15/20 12:07 ALT 40 U/L (0-31) H 12/15/20 12:07 Alkaline Phosphatase 77 U/L (39-117) D 12/15/20 12:07 C-Reactive Protein 0.83 mg/dL (< or = 0.50) H 12/15/20 12:07 Total Protein 7.3 g/dL (6.5-8.0) 12/15/20 12:07 Albumin 3.9 g/dL (3.5-5.0) 12/15/20 12:07 Urine Color YELLOW 12/16/20 03:32 Urine Appearance CLEAR 12/16/20 03:32 Urine pH 7.5 (5.0-8.0) 12/16/20 03:32 Ur Specific [place] 1.020 (1.005-1.025) 12/16/20 03:32 Urine Protein NEG MG/DL (NEG-TRACE) 12/16/20 03:32 Urine Glucose (UA) NEG MG/DL (NEG) 12/16/20 03:32 Urine Ketones NEG MG/DL (NEG) 12/16/20 03:32 Urine Blood NEG (NEG) 12/16/20 03:32 Urine Nitrite NEG (NEG) 12/16/20 03:32 Ur Leukocyte Esterase NEG (NEG) 12/16/20 03:32 Vancomycin Trough 8.5 mcg/mL (10.0-20.0) L 12/17/20 04:47 COVID-19 (PAPO) Negative (Negative) 12/15/20 12:07 COVID-19 Clin Com See Note 12/15/20 12:07 Impressions Chest X-Ray 12/15/20 11:34 IMPRESSION: Unremarkable chest examination. Discharge Plan Discharge Patient Disposition: Home, Self-Care Discharge Diagnosis: Asthma/COPD exacerbation Bacteremia ruled out Referrals: Kelli Benavides MD [Primary Care Provider] - 1 Week Discharge Medications: New nicotine 7 mg/24 hr Patch 24 Hour 7 mg transdermal DAILY Qty: 30 RF: 0 Continued tiotropium bromide [Spiriva with HandiHaler] 18 mcg capsule, w/inhalation device 1 cap inhalation DAILY Qty: 30 RF: 11 immun glob [id number] 0-50 10 gram recon soln 40 g IV Q4W Qty: 2 RF: 12 ipratropium-albuterol 0.5 mg-3 mg(2.5 mg base)/3 mL solution for nebulization 3 ml inhalation Q4H PRN (Reason: for wheezing) Qty: 540 RF: 6 gabapentin 100 mg capsule 1 cap PO DAILY@1200 RF: 0 Lantus U-100 Insulin 100 unit/mL solution 45 unit subcut BEDTIME RF: 0 diltiazem HCl [Tiadylt ER] 360 mg capsule,extended release 24 hr 1 cap PO DAILY RF: 0 chlorthalidone 25 mg tablet 1 tab PO DAILY RF: 0 rosuvastatin 5 mg tablet 1 tab PO BEDTIME RF: 0 Daliresp 500 mcg tablet 1 tab PO DAILY RF: 0 lidocaine 5 % adhesive patch,medicated 1 patch topical DAILY RF: 0 ipratropium bromide 21 mcg (0.03 %) spray,non-aerosol 2 spray intranasal BID RF: 0 insulin lispro [Humalog U-100 Insulin] 100 unit/mL solution See Protocol sliding scale dose subcut TIDAC RF: 0 prednisone 10 mg tablet 20 mg PO DAILY RF: 0 Arnoldo-24 400 mg capsule,extended release 24hr 400 mg PO BID RF: 0 codeine-guaifenesin 10-100 mg/5 mL liquid 10 ml PO Q4-6H PRN (Reason: cough) Qty: 237 RF: 0 doxycycline hyclate 100 mg tablet 100 mg PO BID Qty: 20 RF: 0 montelukast 10 mg tablet 10 mg PO DAILY RF: 0 albuterol sulfate [ProAir HFA] 90 mcg/actuation HFA aerosol inhaler 2 puff inhalation Q4H PRN (Reason: Shortness Of Breath Or Wheezing) RF: 0 loratadine [Claritin] 10 mg tablet 10 mg PO DAILY RF: 0 metformin 500 mg tablet 500 mg PO BID RF: 0 pantoprazole 40 mg tablet,delayed release (DR/EC) 40 mg PO DAILY@0630 RF: 0 lisinopril 40 mg tablet 40 mg PO DAILY RF: 0 zolpidem [Ambien] 10 mg tablet 10 mg PO BEDTIME PRN (Reason: Sleep) RF: 0 methadone 10 mg tablet 49 mg PO DAILY RF: 0 lamotrigine [Lamictal] 150 mg tablet 75 mg PO BID RF: 0 clonazepam 1 mg tablet 1 mg PO BID PRN (Reason: Anxiety) RF: 0 docusate sodium 100 mg capsule 100 mg PO DAILY Qty: 30 RF: 3 sennosides [Natural Senna Laxative] 8.6 mg tablet 8.6 mg PO BEDTIME PRN (Reason: constipation) Qty: 30 RF: 3 Brovana 15 mcg/2 mL solution for nebulization 2 ml inhalation Q12H 30 Days Qty: 120 RF: 11 budesonide 0.5 mg/2 mL suspension for nebulization 0.5 mg inhalation BID Qty: 120 RF: 11 nicotine (polacrilex) 2 mg gum 2 mg buccal Q3H PRN (Reason: nicotine cravings) 30 Days Qty: 100 RF: 3 Discharge Orders: Discharge Order (Routine); Ordered 12/17/20 Ordered By: Paige Steele Diet: advance to usual diet and diabetic diet Activity on Discharge: As tolerated Stand Alone Forms: Patient Portal Discharge page Care Plan Goals: respiratory health smoking cessation Health Concerns: COPD/asthma exacerbation tobacco abuse Plan of Treatment: bacteremia ruled out take prednisone 40 mg for one more daily, then return to 20 mg daily and follow up with your caul fat puller take doxycycline as previously prescribed by ED 100 mg twice daily quit smoking; can combine nicotine patch and gum for greater success rate see your primary care doctor in 1 week Assessment: See Discharge Summary
[2020-12-17] MEDS: cefTRIAXone sodium 2 GM in 0.9 % Sodium Chloride 50 ML IV (12:45)
--- NOTE | 2020-12-17 12:51 | MHC.CM.PN ---
pt dcd with resum,ption of altrANIS VNA
--- NOTE | 2020-12-17 13:11 | MHC.CM.PN ---
SPOKE WITH LUCAS HOPE DC SUMMARY AND DOCUMENTAION OF LAST DOESE OF METHADONE ,[facility] PT NURSES WAS NOTIFIED
== END 2020-12-17 15:00 | disposition home or self-care (01) | DRG 140 ==
LOC: HO.ED 14:36 → HO.EDOVER 15:49 → HO.IMC 16:48
PROVIDERS: Internal Medicine; Admitting Provider Family Medicine; Emergency Provider Emergency Medicine; PCP Family Medicine; Visit Provider Family Medicine
DX: J44.1 Chronic obstructive pulmonary disease with (acute) exacerbation (principal); J96.11 Chronic respiratory failure with hypoxia; E87.2 Acidosis; R78.81 Bacteremia; J96.12 Chronic respiratory failure with hypercapnia; J45.901 Unspecified asthma with (acute) exacerbation; F11.20 Opioid dependence, uncomplicated; Z99.81 Dependence on supplemental oxygen; E78.5 Hyperlipidemia, unspecified; D72.829 Elevated white blood cell count, unspecified; T38.0X5A Adverse effect of glucocorticoids and synthetic analogues, initial encounter; I10 Essential (primary) hypertension; E11.9 Type 2 diabetes mellitus without complications; F17.210 Nicotine dependence, cigarettes, uncomplicated; Z71.6 Tobacco abuse counseling; Z20.822 Contact with and (suspected) exposure to COVID-19; Z79.4 Long term (current) use of insulin; Z79.899 Other long term (current) drug therapy
CPT/HCPCS: 36415; 71045; 80048; 80076; 80202; 81003; 82565; 82803; 82947; 83036; 83605; 83735; 85025; 85027; 86140; 87040; 87635; 94640; 94660; 99219; 99283; J0696; J1650; J3370

== ENCOUNTER → 2020-12-18 10:01 | Outpatient (BNVA) | payer MEDICAID, SELFPAY | PROVIDERS: PCP Family Medicine; Visit Provider Hospitalist | DX: J44.1 Chronic obstructive pulmonary disease with (acute) exacerbation (principal); J44.9 Chronic obstructive pulmonary disease, unspecified; J96.11 Chronic respiratory failure with hypoxia; J96.12 Chronic respiratory failure with hypercapnia; D80.1 Nonfamilial hypogammaglobulinemia; F17.200 Nicotine dependence, unspecified, uncomplicated; R06.02 Shortness of breath; K08.9 Disorder of teeth and supporting structures, unspecified | CPT/HCPCS: 99212 ==

== ENCOUNTER 2021-01-09 13:05 | Outpatient (REF) | payer MEDICAID, SELFPAY | END 2021-01-09 13:06 | disposition home or self-care (01) | LOC: HO.LNP 13:05 | PROVIDERS: PCP Family Medicine; Visit Provider Hospitalist | DX: J44.1 Chronic obstructive pulmonary disease with (acute) exacerbation (principal); J45.901 Unspecified asthma with (acute) exacerbation; D80.1 Nonfamilial hypogammaglobulinemia; F17.200 Nicotine dependence, unspecified, uncomplicated; J96.11 Chronic respiratory failure with hypoxia; J96.12 Chronic respiratory failure with hypercapnia | CPT/HCPCS: 87070; 87205; 96372; 99212; J2930 ==

== ENCOUNTER 2021-01-10 09:55 | Outpatient (REF) | payer MEDICAID, SELFPAY | END 2021-01-10 09:56 | disposition home or self-care (01) | LOC: HO.MDS 09:55 | PROVIDERS: PCP Family Medicine; Visit Provider Hospitalist | DX: D80.1 Nonfamilial hypogammaglobulinemia (principal) | CPT/HCPCS: 96365; 96366; J1569 ==

== ENCOUNTER 2021-01-19 10:25 | Outpatient (REF) | payer MEDICAID, SELFPAY | END 2021-01-19 10:26 | disposition home or self-care (01) | LOC: HO.LNP 10:25 | PROVIDERS: PCP Family Medicine; Visit Provider Hospitalist | DX: J44.9 Chronic obstructive pulmonary disease, unspecified (principal); D80.1 Nonfamilial hypogammaglobulinemia; J96.11 Chronic respiratory failure with hypoxia; J96.12 Chronic respiratory failure with hypercapnia; F17.200 Nicotine dependence, unspecified, uncomplicated; Z79.899 Other long term (current) drug therapy | CPT/HCPCS: 87070; 87205; 99212 ==

== ENCOUNTER → 2021-02-02 10:17 | Outpatient (BNVA) | payer MEDICAID, SELFPAY | PROVIDERS: PCP Family Medicine; Visit Provider Hospitalist | DX: J45.901 Unspecified asthma with (acute) exacerbation (principal); J96.11 Chronic respiratory failure with hypoxia; J96.12 Chronic respiratory failure with hypercapnia; D80.1 Nonfamilial hypogammaglobulinemia; J44.1 Chronic obstructive pulmonary disease with (acute) exacerbation; Z72.0 Tobacco use | CPT/HCPCS: 96372; 99212; J2930 ==

== ENCOUNTER 2021-02-07 10:24 | Outpatient (REF) | payer MEDICAID, SELFPAY | END 2021-02-07 10:25 | disposition home or self-care (01) | LOC: HO.MDS 10:24 | PROVIDERS: PCP Family Medicine; Visit Provider Hospitalist | DX: D80.1 Nonfamilial hypogammaglobulinemia (principal) | CPT/HCPCS: 96365; 96366; J1569 ==

== ENCOUNTER 2021-02-10 11:44 | Inpatient (IN) | payer MEDICAID, SELFPAY ==
[2021-02-10] VITALS (12 sets, daily range): BP systolic 103–130; BP diastolic 46–92; PULSE 70–108; RESP 15–26; TEMP 36.7–37.2; O2SAT 90–98; BMI 40.1
--- NOTE | ~2021-02-10 | XR_ITS ---
EXAMINATION: XR CHEST CLINICAL INFORMATION: Cough and SOB. COMPARISON: Chest 12/15/2020 CT chest 10/14/2020 TECHNIQUE: Frontal view of the chest was obtained. FINDINGS: The lungs are expanded and clear of acute process. Heart size and vascularity is normal. There are multiple healed bilateral fractures simulating focal pleural thickening. No acute fracture seen. XR/XR chest 1V IMPRESSION: No acute cardiopulmonary process seen.
--- NOTE | 2021-02-10 11:57 | ECG_ITS ---
Test Reason : DYSPNEA Blood Pressure : / mmHG Vent. Rate : 101 BPM Atrial Rate : 101 BPM P-R Int : 128 ms QRS Dur : 082 ms QT Int : 338 ms P-R-T Axes : 060 038 052 degrees QTc Int : 438 ms Sinus tachycardia RSR' or QR pattern in V1 suggests right ventricular conduction delay Otherwise normal ECG When compared with ECG of 14-DEC-2020 18:25, No significant change was found Referred By: Anayeli Dougherty Electronically Signed By:BLANCO STUBBS MD
[2021-02-10] MEDS: Albuterol Sulfate (0.083%) 2.5 MG/3 ML VIAL.NEB 7.5 MG INHALE ×2 (12:06→13:35)
--- NOTE | 2021-02-10 12:10 | ED.SOB ---
HPI - SOB/Dyspnea General Chief Complaint: Dyspnea <MAUREEN Norwood - Last Filed: 02/10/21 13:51> Stated Complaint: diff breathing <MAUREEN Norwood - Last Filed: 02/10/21 13:51> Time Seen by Provider: 02/10/21 11:50 <MAUREEN Norwood - Last Filed: 02/10/21 13:51> Source: patient and EMS <MAUREEN Norwood - Last Filed: 02/10/21 13:51> Mode of arrival: EMS <MAUREEN Norwood - Last Filed: 02/10/21 13:51> History of Present Illness HPI Narrative: 51-year-old female with chronic hypoxic/hypercapnic respiratory failure on home BiPAP and O2 2L NC, asthma/COPD overlap syndrome on chronic Prednisone 20 mg daily daily, obesity, tobacco abuse, hypogammoglobulinemia, HTN, DM, BIBA for worsening SOB x1 week. Per EMS patient satting 88% on 2L NC on their arrival. Patient reports productive cough and mild chest tightness. Admits to LE edema. Denies fever, chills, abdominal pain, nausea/vomiting, COVID-19 exposure. <MAUREEN Norwood - Last Filed: 02/10/21 13:51> MD elicited complaint: shortness of breath and cough <MAUREEN Norwood - Last Filed: 02/10/21 13:51> Related Data Home Medications: Home Medications Medication Instructions Recorded Confirmed albuterol sulfate 90 mcg/actuation 2 puff INHALATION Q4H PRN 12/30/19 02/10/21 aerosol inhaler (ProAir HFA) lisinopril 40 mg tablet 40 mg PO DAILY 12/30/19 02/10/21 loratadine 10 mg tablet (Claritin) 10 mg PO DAILY 12/30/19 02/10/21 metformin 500 mg tablet 500 mg PO BID 12/30/19 02/10/21 methadone 10 mg tablet 49 mg PO DAILY 12/30/19 02/11/21 montelukast 10 mg tablet 10 mg PO BEDTIME 12/30/19 02/10/21 gabapentin 100 mg capsule 1 cap PO BID 10/14/20 02/10/21 insulin glargine 100 unit/mL 45 unit SUBCUT BEDTIME 10/14/20 02/10/21 subcutaneous solution (Lantus U-100 Insulin) diltiazem HCl 360 mg capsule,24 1 cap PO DAILY 11/16/20 02/10/21 hr,extended release (Tiadylt ER) roflumilast 500 mcg tablet 1 tab PO DAILY 11/16/20 02/10/21 (Daliresp) rosuvastatin 5 mg tablet 1 tab PO BEDTIME 11/16/20 02/10/21 insulin lispro 100 unit/mL See Protocol SUBCUT TIDAC 12/14/20 02/10/21 subcutaneous solution (Humalog U-100 Insulin) lidocaine 5 % topical patch 1 patch TOPICAL DAILY 12/14/20 02/10/21 theophylline 400 mg 400 mg PO BID 12/14/20 02/10/21 capsule,extended release 24 hr (Arnoldo-24) clonazepam 1 mg tablet 1 mg PO BID PRN 02/10/21 02/10/21 zolpidem 10 mg tablet 10 mg PO BEDTIME PRN 02/10/21 02/10/21 Previous Rx's Medication Instructions Recorded tiotropium bromide 18 mcg capsule 1 cap INHALATION DAILY #30 inh 05/11/20 with inhalation device (Spiriva with HandiHaler) immune glob,gamma(IgG) 10 40 g IV Q4W #2 ea 06/16/20 oben-vdd-eyzk-IgA 0 to 50 mcg/mL IV solution arformoterol 15 mcg/2 mL solution 2 ml INHALATION Q12H 30 Days #120 09/20/20 for nebulization (Brovana) ml budesonide 0.5 mg/2 mL suspension 0.5 mg (2 mL) INHALATION BID #120 09/20/20 for nebulization ml ipratropium 0.5 mg-albuterol 3 mg 3 ml INHALATION Q4H PRN #540 ml 10/30/20 (2.5 mg base)/3 mL nebulization soln nicotine (polacrilex) 2 mg gum 2 mg BUCCAL Q3H PRN 30 Days #100 ea 11/23/20 sennosides 8.6 mg tablet (Natural 8.6 mg PO BEDTIME PRN #30 tab 11/24/20 Senna Laxative) nicotine 7 mg/24 hr daily 7 mg TRANSDERMAL DAILY #30 ea 12/17/20 transdermal patch chlorhexidine gluconate 0.12 % 15 ml BUCCAL BID 14 Days #473 ml 12/18/20 mouthwash sodium chloride 3 % for 4 ml INHALATION BID #240 ml 01/22/21 nebulization prednisone 10 mg tablet 20 mg PO DAILY 30 Days #60 tab 02/02/21 sulfamethoxazole 800 1 tab PO Q12H 21 Days #42 tab 02/05/21 mg-trimethoprim 160 mg tablet (Bactrim DS) prednisone 20 mg tablet 40 mg PO DAILY #4 tab 02/11/21 <MAUREEN Norwood - Last Filed: 02/10/21 13:51> Allergies/Adverse Reactions: Allergies Allergy/AdvReac Type Severity Reaction Status Date / Time No Known Allergies Allergy Verified 02/02/21 10:25 [No Known Allergies*] <MAUREEN Norwood Last Filed: 02/10/21 13:51> Review of Systems Review of Systems: Constitutional: No Fever, No Fatigue, No Malaise ENT/Mouth: No Ear Pain, No Nasal Congestion, No Sinus Pain, No sore throat Eyes: No Eye Pain, No Swelling, No Redness, No Discharge, No Vision Changes Cardiovascular: + Chest Pain, + SOB, No Dyspnea on Exertion, + Orthopnea, + Edema, No Palpitations Respiratory: + Cough, + Sputum, + Wheezing, No Smoke Exposure, + Dyspnea Gastrointestinal: No Nausea, No Vomiting, No Diarrhea, No Constipation, No Abdominal pain Genitourinary: No Dysuria, No Urinary Frequency, No Hematuria, No Urinary Incontinence, No Urgency, No Flank Pain, No Hesitancy Musculoskeletal: No joint pain, No Myalgias, No Joint Swelling Skin: No Skin Lesions, No rash Neuro: No Weakness, No Numbness, No Headache <MAUREEN Norwood - Last Filed: 02/10/21 13:51> Yes all other systems are reviewed and are negative <MAUREEN Norwood Last Filed: 02/10/21 13:51> PMFSH Past Medical History Attestation statement: The following information was validated with the patient. <MAUREEN Norwood Last Filed: 02/10/21 13:51> Medical History: Medical History Acidosis, lactic Asthma with acute exacerbation Asthma with COPD with exacerbation Asthma-COPD overlap syndrome Asthma-COPD overlap syndrome Blood bacterial culture positive Chronic respiratory failure Essential hypertension Hyperlipidemia, unspecified Hypogammaglobulinemia Leukocytosis Metabolic alkalosis with respiratory acidosis Poor dentition Respiratory failure, acute and chronic Tachycardia Tobacco abuse Tobacco dependence Type 2 diabetes mellitus with unspecified complications <MAUREEN Norwood - Last Filed: 02/10/21 13:51> Surgical History: Surgical History H/O tubal ligation <MAUREEN Norwood - Last Filed: 02/10/21 13:51> Family History Family History: Family History Father Diabetes Other Asthma <MAUREEN Norwood - Last Filed: 02/10/21 13:51> Social History Social History: Social History Household Members: Significant Other and Children Household Members Other:: 3 Housing: Apartment Do you presently have visiting nurse or other home services: Yes Alcohol intake: unknown Patient Tobacco Use Status: Current someday Tobacco user Tobacco use type: Cigarette Years Smoked: 20 years e-Cigarette/Vaping Use: Currently Using Second Hand Smoke Exposure: No Substance Use Type: Former Substance User Advance Directives Date on File: 11/16/20 service: No Current occupational status: disabled <MAUREEN Norwood - Last Filed: 02/10/21 13:51> Physical Exam Vital Signs: Vital Signs: Last Vital Signs Temp 98.4 F 02/11/21 05:38 Pulse 100 02/11/21 10:08 Resp 24 H 02/11/21 07:26 BP 129/62 02/11/21 10:08 Pulse Ox 96 02/11/21 05:38 Body Mass Index 40.1 <MAUREEN Norwood - Last Filed: 02/10/21 13:51> Vital Signs: Last Vital Signs Temp 98.4 F 02/11/21 05:38 Pulse 100 02/11/21 10:08 Resp 24 H 02/11/21 07:26 BP 129/62 02/11/21 10:08 Pulse Ox 96 02/11/21 05:38 Body Mass Index 40.1 <MAUREEN Oliveira - Last Filed: 02/11/21 15:29> Const: General: cooperative <Anayeli Dougherty SD - Last Filed: 02/10/21 13:51> Orientation/consciousness: patient oriented x3 <Anayeli Dougherty SD - Last Filed: 02/10/21 13:51> Limitations: no limitations <Anayeli Dougherty SD - Last Filed: 02/10/21 13:51> HENMT: Head: Yes normal to inspection and Yes atraumatic <Anayeli Dougherty SD - Last Filed: 02/10/21 13:51> Ears: hearing grossly normal bilaterally <Anayeli Dougherty SD - Last Filed: 02/10/21 13:51> General nose exam: Normal external nose present <Anayeli Dougherty SD - Last Filed: 02/10/21 13:51> Face and sinus: Yes normal facial exam <Anayeli Dougherty SD - Last Filed: 02/10/21 13:51> Eyes: General: appearance normal, both eyes and all related structures <Anayeli Dougherty SD - Last Filed: 02/10/21 13:51> EOM: EOMs intact bilaterally <Anayelichayo Dougherty SD - Last Filed: 02/10/21 13:51> Neck: Neck: Yes normal visual inspection and Yes no meningeal signs <Anayeli Dougherty SD - Last Filed: 02/10/21 13:51> Resp: Effort & Inspection: labored <Anayeli Dougherty SD - Last Filed: 02/10/21 13:51> Auscultation: wheezes lower bilaterally and diminished lung sounds diffuse <Anayeli Dougherty SD - Last Filed: 02/10/21 13:51> Cardio: Rate: regular rate and tachycardic <Anayeli Dougherty SD - Last Filed: 02/10/21 13:51> Heart sounds: S1 normal heart sound present and S2 normal heart sound present <Anayeli Dougherty SD - Last Filed: 02/10/21 13:51> GI: Inspection: Yes normal to inspection <Anayeli Dougherty SD - Last Filed: 02/10/21 13:51> Palpation (GI): Soft to palpation, nontender, no guarding and not rigid <Anayeli Dougherty SD - Last Filed: 02/10/21 13:51> Skin: Rashes: no rashes <MAUREEN Norwood - Last Filed: 02/10/21 13:51> Wounds: no wounds <MAUREEN Norwood - Last Filed: 02/10/21 13:51> Neuro: General: patient oriented x3 and no meningeal signs <MAUREEN Norwood - Last Filed: 02/10/21 13:51> Gait exam (Neuro): Normal gait present <MAUREEN Norwood - Last Filed: 02/10/21 13:51> Extrem: Other: +1 bilateral LE pitting edema <MAUREEN Norwood - Last Filed: 02/10/21 13:51> General: Yes no pedal edema <MAUREEN Norwood - Last Filed: 02/10/21 13:51> Course Course Course Narrative: -1258--mild leukocytosis of 14.5 appears chronic, patient on chronic prednisone. Low concern for severe sepsis. -VBG showing chronic retention, compensated -initial troponin 14.5 > will obtain 3hr repeat, labs otherwise unremarkable. COVID-19 negative -on re-evaluation patient desatting to 82% on her baseline 2L NC, CO2 79 > will place on BiPAP and plan for admission XR chest 1V IMPRESSION: No acute cardiopulmonary process seen. <MAUREEN Norwood - Last Filed: 02/10/21 13:51> Reevaluation(s) Reevaluation #1: 02/12/2021 Spoke to who is aware of the patients blood culture results gram + cocci. <MAUREEN Oliveira - Last Filed: 02/11/21 15:29> MDM - SOB/Dyspnea MDM Narrative Medical decision making narrative: 51-year-old female with chronic hypoxic/hypercapnic respiratory failure on home BiPAP and O2 2L NC, asthma/COPD overlap syndrome on chronic Prednisone 20 mg daily daily, obesity, tobacco abuse, hypogammoglobulinemia, HTN, DM, BIBA for worsening SOB x1 week. Per EMS patient satting 88% on 2L NC on their arrival. On exam tachycardic likely from albuterol use, and increased work of breathing satting 82 it 88 on 2 L NC increased to 90% on 4 L NC. Diminished lung sounds throughout with end-expiratory wheeze, 1+ bilateral LE pitting edema. Concern for acute on chronic asthma/COPD exacerbation vs CHF. Low concern for PE. Rule out pneumonia/viral syndrome/COVID-19 Plan: EKG, labs, CXR, COVID-19 testing, Mg, Solumedrol, DuoNeb <MAUREEN Norwood - Last Filed: 02/10/21 13:51> Medical Records Attestation: I reviewed the patient's medical records. <MAUREEN Norwood - Last Filed: 02/10/21 13:51> Lab Data Attestation: I reviewed the patient's lab results. <MAUREEN Norwood - Last Filed: 02/10/21 13:51> Result diagrams: : 02/10/21 12:12 02/10/21 12:12 <MAUREEN Norwood - Last Filed: 02/10/21 13:51> Labs: Lab Results 02/10/21 02/10/21 02/10/21 Range/Units 12:12 12:12 12:12 WBC 14.5 H (4.8-10.8) X10*3/uL RBC 4.20 (4.20-5.50) X10*6/uL Hgb 13.0 (12.0-16.0) g/dl Hct 42.0 (37.0-47.0) % MCV 100.0 H (80.0-98.0) fL MCH 31.0 (27.0-33.0) pg MCHC 31.0 (31.0-35.0) g/dl RDW 12.6 (11.0-16.0) % Plt Count 294 (160-400) X10*3/uL MPV 8.8 L (9.4-12.3) fL Immature Gran % (Auto) 0.8 H (0.0-0.4) % Neut % (Auto) 82.9 H (45-73) % Lymph % (Auto) 11.0 L (20-40) % [place] % (Auto) 4.7 (2-11) % Eos % (Auto) 0.4 (0-4) % Baso % (Auto) 0.2 (0-2) % Lymph # (Auto) 1.6 (1.2-4.9) X10*3/uL [place] # (Auto) 0.7 (0.1-1.2) X10*3/uL Eos # (Auto) 0.1 (0.0-0.4) X10*3/uL Baso # (Auto) 0.0 (0.0-0.2) X10*3/uL Abs Immat Gran (auto) 0.12 H (0.00-0.03) X10*3/uL Absolute Neuts (auto) 12.0 H (2.0-8.3) x10*3/uL Absolute Nucleated RBC 0.000 (0.0-0.012) X10*3/uL Nucleated RBC % (auto) 0.0 (0.0-0.2) /100WBC VBG pH (7.32-7.43) VBG pCO2 mmHg VBG pO2 mmHg VBG HCO3 (22-26) mmol/L VBG O2 Saturation % VBG Base Excess mmol/L Sodium 137 (135-145) mmol/L Potassium 4.4 (3.3-5.1) mmol/L Chloride 92 L (96-108) mmol/L Carbon Dioxide 38 H (22-29) mmol/L Anion Gap 11 L (12-20) BUN 17 H (9-16) mg/dL Creatinine 0.75 (0.5-1.4) mg/dL Estim Creat Clear Calc 94.2 Estimated GFR > 60 Random Glucose 131 H (60-115) mg/dL Lactic Acid 0.9 (0.5-2.0) mmol/L Calcium 9.6 D (8.4-10.2) mg/dL Magnesium 1.8 (1.6-2.6) mg/dL Total Bilirubin 0.3 (0.0-1.0) mg/dL Direct Bilirubin < 0.2 (0.0-0.5) mg/dL AST 29 (5-31) U/L ALT 37 H (0-31) U/L Alkaline Phosphatase 64 (39-117) U/L Troponin I High Sens (<3.5-17.0) ng/L B-Natriuretic Peptide (<100) pg/mL Total Protein 7.3 (6.5-8.0) g/dL Albumin 3.9 (3.5-5.0) g/dL COVID-19 (APPO) (Negative) COVID-19 Clin Com 02/10/21 02/10/21 02/10/21 Range/Units 12:12 12:12 12:23 WBC (4.8-10.8) X10*3/uL RBC (4.20-5.50) X10*6/uL Hgb (12.0-16.0) g/dl Hct (37.0-47.0) % MCV (80.0-98.0) fL MCH (27.0-33.0) pg MCHC (31.0-35.0) g/dl RDW (11.0-16.0) % Plt Count (160-400) X10*3/uL MPV (9.4-12.3) fL Immature Gran % (Auto) (0.0-0.4) % Neut % (Auto) (45-73) % Lymph % (Auto) (20-40) % [place] % (Auto) (2-11) % Eos % (Auto) (0-4) % Baso % (Auto) (0-2) % Lymph # (Auto) (1.2-4.9) X10*3/uL [place] # (Auto) (0.1-1.2) X10*3/uL Eos # (Auto) (0.0-0.4) X10*3/uL Baso # (Auto) (0.0-0.2) X10*3/uL Abs Immat Gran (auto) (0.00-0.03) X10*3/uL Absolute Neuts (auto) (2.0-8.3) x10*3/uL Absolute Nucleated RBC (0.0-0.012) X10*3/uL Nucleated RBC % (auto) (0.0-0.2) /100WBC VBG pH 7.35 (7.32-7.43) VBG pCO2 79 mmHg VBG pO2 124 mmHg VBG HCO3 44 H (22-26) mmol/L VBG O2 Saturation 98.0 % VBG Base Excess 14.8 mmol/L Sodium (135-145) mmol/L Potassium (3.3-5.1) mmol/L Chloride (96-108) mmol/L Carbon Dioxide (22-29) mmol/L Anion Gap (12-20) BUN (9-16) mg/dL Creatinine (0.5-1.4) mg/dL Estim Creat Clear Calc Estimated GFR Random Glucose (60-115) mg/dL Lactic Acid (0.5-2.0) mmol/L Calcium (8.4-10.2) mg/dL Magnesium (1.6-2.6) mg/dL Total Bilirubin (0.0-1.0) mg/dL Direct Bilirubin (0.0-0.5) mg/dL AST (5-31) U/L ALT (0-31) U/L Alkaline Phosphatase (39-117) U/L Troponin I High Sens 14.5 D (<3.5-17.0) ng/L B-Natriuretic Peptide < 10 (<100) pg/mL Total Protein (6.5-8.0) g/dL Albumin (3.5-5.0) g/dL COVID-19 (PAPO) Negative (Negative) COVID-19 Clin Com See Note <MAUREEN Norwood - Last Filed: 02/10/21 13:51> Lab Results 02/10/21 02/10/21 02/10/21 Range/Units 12:12 12:12 12:12 WBC 14.5 H (4.8-10.8) X10*3/uL RBC 4.20 (4.20-5.50) X10*6/uL Hgb 13.0 (12.0-16.0) g/dl Hct 42.0 (37.0-47.0) % MCV 100.0 H (80.0-98.0) fL MCH 31.0 (27.0-33.0) pg MCHC 31.0 (31.0-35.0) g/dl RDW 12.6 (11.0-16.0) % Plt Count 294 (160-400) X10*3/uL MPV 8.8 L (9.4-12.3) fL Immature Gran % (Auto) 0.8 H (0.0-0.4) % Neut % (Auto) 82.9 H (45-73) % Lymph % (Auto) 11.0 L (20-40) % [place] % (Auto) 4.7 (2-11) % Eos % (Auto) 0.4 (0-4) % Baso % (Auto) 0.2 (0-2) % Lymph # (Auto) 1.6 (1.2-4.9) X10*3/uL [place] # (Auto) 0.7 (0.1-1.2) X10*3/uL Eos # (Auto) 0.1 (0.0-0.4) X10*3/uL Baso # (Auto) 0.0 (0.0-0.2) X10*3/uL Abs Immat Gran (auto) 0.12 H (0.00-0.03) X10*3/uL Absolute Neuts (auto) 12.0 H (2.0-8.3) x10*3/uL Absolute Nucleated RBC 0.000 (0.0-0.012) X10*3/uL Nucleated RBC % (auto) 0.0 (0.0-0.2) /100WBC VBG pH (7.32-7.43) VBG pCO2 mmHg VBG pO2 mmHg VBG HCO3 (22-26) mmol/L VBG O2 Saturation % VBG Base Excess mmol/L Sodium 137 (135-145) mmol/L Potassium 4.4 (3.3-5.1) mmol/L Chloride 92 L (96-108) mmol/L Carbon Dioxide 38 H (22-29) mmol/L Anion Gap 11 L (12-20) BUN 17 H (9-16) mg/dL Creatinine 0.75 (0.5-1.4) mg/dL Estim Creat Clear Calc 94.2 Estimated GFR > 60 Random Glucose 131 H (60-115) mg/dL Lactic Acid 0.9 (0.5-2.0) mmol/L Calcium 9.6 D (8.4-10.2) mg/dL Magnesium 1.8 (1.6-2.6) mg/dL Total Bilirubin 0.3 (0.0-1.0) mg/dL Direct Bilirubin < 0.2 (0.0-0.5) mg/dL AST 29 (5-31) U/L ALT 37 H (0-31) U/L Alkaline Phosphatase 64 (39-117) U/L Troponin I High Sens (<3.5-17.0) ng/L B-Natriuretic Peptide (<100) pg/mL Total Protein 7.3 (6.5-8.0) g/dL Albumin 3.9 (3.5-5.0) g/dL COVID-19 (PAPO) (Negative) COVID-19 Clin Com 02/10/21 02/10/21 02/10/21 Range/Units 12:12 12:12 12:23 WBC (4.8-10.8) X10*3/uL RBC (4.20-5.50) X10*6/uL Hgb (12.0-16.0) g/dl Hct (37.0-47.0) % MCV (80.0-98.0) fL MCH (27.0-33.0) pg MCHC (31.0-35.0) g/dl RDW (11.0-16.0) % Plt Count (160-400) X10*3/uL MPV (9.4-12.3) fL Immature Gran % (Auto) (0.0-0.4) % Neut % (Auto) (45-73) % Lymph % (Auto) (20-40) % [place] % (Auto) (2-11) % Eos % (Auto) (0-4) % Baso % (Auto) (0-2) % Lymph # (Auto) (1.2-4.9) X10*3/uL [place] # (Auto) (0.1-1.2) X10*3/uL Eos # (Auto) (0.0-0.4) X10*3/uL Baso # (Auto) (0.0-0.2) X10*3/uL Abs Immat Gran (auto) (0.00-0.03) X10*3/uL Absolute Neuts (auto) (2.0-8.3) x10*3/uL Absolute Nucleated RBC (0.0-0.012) X10*3/uL Nucleated RBC % (auto) (0.0-0.2) /100WBC VBG pH 7.35 (7.32-7.43) VBG pCO2 79 mmHg VBG pO2 124 mmHg VBG HCO3 44 H (22-26) mmol/L VBG O2 Saturation 98.0 % VBG Base Excess 14.8 mmol/L Sodium (135-145) mmol/L Potassium (3.3-5.1) mmol/L Chloride (96-108) mmol/L Carbon Dioxide (22-29) mmol/L Anion Gap (12-20) BUN (9-16) mg/dL Creatinine (0.5-1.4) mg/dL Estim Creat Clear Calc Estimated GFR Random Glucose (60-115) mg/dL Lactic Acid (0.5-2.0) mmol/L Calcium (8.4-10.2) mg/dL Magnesium (1.6-2.6) mg/dL Total Bilirubin (0.0-1.0) mg/dL Direct Bilirubin (0.0-0.5) mg/dL AST (5-31) U/L ALT (0-31) U/L Alkaline Phosphatase (39-117) U/L Troponin I High Sens 14.5 D (<3.5-17.0) ng/L B-Natriuretic Peptide < 10 (<100) pg/mL Total Protein (6.5-8.0) g/dL Albumin (3.5-5.0) g/dL COVID-19 (PAPO) Negative (Negative) COVID-19 Clin Com See Note <MAUREEN Oliveira - Last Filed: 02/11/21 15:29> ECG Data Attestation: I personally reviewed and interpreted this ECG as follows: <MAUREEN Norwood - Last Filed: 02/10/21 13:51> ECG interpretation date: 02/10/21 <MAUREEN Norwood - Last Filed: 02/10/21 13:51> ECG interpretation time: 12:11 <MAUREEN Norwood Last Filed: 02/10/21 13:51> Prior ECG tracings: available for review <MAUREEN Norwood Last Filed: 02/10/21 13:51> Interpretation: EKG sinus tachycardia rate of 101. MD interval 128. QTC 438. Nonischemic/no STEMI. Artifact present <MAUREEN Norwood Last Filed: 02/10/21 13:51> Discharge Plan Discharge Clinical Impression: Asthma with COPD with exacerbation <MAUREEN Norwood Last Filed: 02/10/21 13:51> Patient Disposition: Admitted As Inpatient <MAUREEN Norwood - Last Filed: 02/10/21 13:51> Interventions: ED Discharge Assessment Last Done: 02/11/21 10:25 <MAUREEN Norwood - Last Filed: 02/10/21 13:51> Discharge Date/Time: 02/11/21 11:09 <MAUREEN Norwood - Last Filed: 02/10/21 13:51>
[2021-02-10 12:18] LABS: MANUAL DIFF FLAG NO
[2021-02-10 12:20] LABS: Basophils Percent Auto 0.2 % (0-2); Eosinophils Absolute Auto 0.1 X10*3/uL (0.0-0.4); Eosinophils Percent Auto 0.4 % (0-4); Imm Gran Abs Auto 0.12 X10*3/uL (0.00-0.03); Imm Gran Pct Auto 0.8 % (0.0-0.4); Lymphocytes Absolute Auto 1.6 X10*3/uL (1.2-4.9); Mean Platelet Volume 8.8 fL (9.4-12.3); Monocytes Absolute Auto 0.7 X10*3/uL (0.1-1.2); Monocytes Percent Auto 4.7 % (2-11); Neutrophils Percent Auto 82.9 % (45-73); Platelet Count 294 X10*3/uL (160-400); Red Cell Distribution Width 12.6 % (11.0-16.0); White Blood Count 14.5 X10*3/uL (4.8-10.8)
[2021-02-10] MEDS: methylPREDNISolone Sod Succ 125 MG/2 ML VIAL IVPUSH (12:20)
[2021-02-10] MEDS: Magnesium Sulfate/H2O 2 GM/50 ML PIGGYBACK IV (12:21)
[2021-02-10 12:32] LABS: VBG Base Excess 14.8 mmol/L; VBG HCO3 44 mmol/L (22-26); VBG pCO2 79 mmHg; VBG pH 7.35 (7.32-7.43); VBG pO2 124 mmHg
[2021-02-10 12:33] LABS: Venous Blood Gas Refer to POC result
[2021-02-10 12:34] LABS: Lactic Acid 0.9 mmol/L (0.5-2.0)
[2021-02-10 12:38] LABS: Alanine Aminotransferase 37 U/L (0-31); Albumin Level 3.9 g/dL (3.5-5.0); Alkaline Phosphatase 64 U/L (39-117); Anion Gap 11 (12-20); Aspartate Amino Transferase 29 U/L (5-31); Bilirubin Direct < 0.2 mg/dL (0.0-0.5); Bilirubin Total 0.3 mg/dL (0.0-1.0); Blood Urea Nitrogen 17 mg/dL (9-16); Calcium 9.6 mg/dL (8.4-10.2); Carbon Dioxide 38 mmol/L (22-29); Chloride 92 mmol/L (96-108); Creatinine Clr Calc Pharmacy 94.2; Estimated Glomerular Filt Rate > 60; Glucose Random 131 mg/dL (60-115); Magnesium 1.8 mg/dL (1.6-2.6); Potassium 4.4 mmol/L (3.3-5.1); Sodium 137 mmol/L (135-145); Total Protein 7.3 g/dL (6.5-8.0)
[2021-02-10 12:44] LABS: B Type Natriuretic Peptide < 10 pg/mL (<100); COVID-19 Test Negative (Negative); Troponin-I High Sensitivity 14.5 ng/L (<3.5-17.0)
--- NOTE | 2021-02-10 14:06 | PM.IMHP ---
History of Present Illness Date of Service: 02/10/21 Chief Complaint: Shortness of breath 51-year-old female morbidly obese, with asthma/COPD overlap syndrome, chronic hypercarbic, hypoxemic respiratory failure on home oxygen, and uses NIV at night, and steroid dependent, essential hypertension, HLD, type 2 diabetes who presents to the hospital with worsening shortness of breath for about 1 week and worse today and was having associated nausea and headache. Recently was prescribed steroid and antibiotics when she saw her acidizer water well. CXR shows no acute finding, she's put on BiPAP and seems rather comfortable, talking in full sentences. No fever, has cough, scant sputum, has no leg edema. Covid is negative, NOT yet vaccinated. Review of Systems Review of Systems: Gen: no fever Resp: +sob, +cough CV: no chest, +ANAYA, no leg edema GI: No n/v, no abd pain Neuro: No confusion Yes all other systems are reviewed and are negative [facility] Medical History Acidosis, lactic Asthma with acute exacerbation Asthma with COPD with exacerbation Asthma-COPD overlap syndrome Asthma-COPD overlap syndrome Blood bacterial culture positive Chronic respiratory failure Essential hypertension Hyperlipidemia, unspecified Hypogammaglobulinemia Leukocytosis Metabolic alkalosis with respiratory acidosis Poor dentition Respiratory failure, acute and chronic Tachycardia Tobacco abuse Tobacco dependence Type 2 diabetes mellitus with unspecified complications Family History Father Diabetes Other Asthma Surgical History H/O tubal ligation Social History Household Members: Significant Other and Children Household Members Other:: 3 Housing: Apartment Do you presently have visiting nurse or other home services: Yes Alcohol intake: unknown Patient Tobacco Use Status: Current someday Tobacco user Tobacco use type: Cigarette Years Smoked: 20 years e-Cigarette/Vaping Use: Currently Using Second Hand Smoke Exposure: No Use of substances other than those prescribed or required for medical reasons: No Substance Use Type: Former Substance User Advance Directives: Yes Advance Directives on File: Yes Advance Directives Date on File: 11/16/20 service: No Current occupational status: disabled Meds Allergies Allergy/AdvReac Type Severity Reaction Status Date / Time No Known Allergies Allergy Verified 02/02/21 10:25 [No Known Allergies*] Active Medications: Current Medications Pharmacy Consult (Consult Rx Perform Med Rec) 1 each MISCELLANE ONCE PRN PRN Reason: Consult order Home Medications Medication Instructions Recorded Confirmed Last Taken Type albuterol sulfate 90 mcg/actuation 2 puff INHALATION Q4H PRN 12/30/19 02/10/21 02/10/21 History aerosol inhaler (ProAir HFA) lisinopril 40 mg tablet 40 mg PO DAILY 12/30/19 02/10/21 02/10/21 History loratadine 10 mg tablet (Claritin) 10 mg PO DAILY 12/30/19 02/10/21 02/10/21 History metformin 500 mg tablet 500 mg PO BID 12/30/19 02/10/21 02/10/21 History methadone 10 mg tablet 49 mg PO DAILY 12/30/19 12/15/20 12/15/20 History montelukast 10 mg tablet 10 mg PO BEDTIME 12/30/19 02/10/21 02/09/21 History gabapentin 100 mg capsule 1 cap PO BID 10/14/20 02/10/21 02/10/21 History insulin glargine 100 unit/mL 45 unit SUBCUT BEDTIME 10/14/20 02/10/21 02/09/21 History subcutaneous solution (Lantus U-100 Insulin) diltiazem HCl 360 mg capsule,24 1 cap PO DAILY 11/16/20 02/10/21 02/10/21 History hr,extended release (Tiadylt ER) roflumilast 500 mcg tablet 1 tab PO DAILY 11/16/20 02/10/21 02/10/21 History (Daliresp) rosuvastatin 5 mg tablet 1 tab PO BEDTIME 11/16/20 02/10/21 02/09/21 History insulin lispro 100 unit/mL See Protocol SUBCUT TIDAC 12/14/20 02/10/21 02/10/21 History subcutaneous solution (Humalog U-100 Insulin) lidocaine 5 % topical patch 1 patch TOPICAL DAILY 12/14/20 02/10/21 02/10/21 History theophylline 400 mg 400 mg PO BID 12/14/20 02/10/21 02/10/21 History capsule,extended release 24 hr (Arnoldo-24) clonazepam 1 mg tablet 1 mg PO BID PRN 02/10/21 02/10/21 Unknown History zolpidem 10 mg tablet 10 mg PO BEDTIME PRN 02/10/21 02/10/21 Unknown History Physical Exam Vital Signs and Narrative: Vital Signs: Last Vital Signs Temp 98.1 F 02/10/21 11:48 Pulse 99 02/10/21 13:37 Resp 15 02/10/21 13:37 BP 117/59 L 02/10/21 13:06 Pulse Ox 90 L 02/10/21 13:06 Body Mass Index 40.1 Const: Other: Constitutional: Alert, in no distress, overweight. Mental Status: Oriented to person, place and time. Eyes: Pupils are equal, round and reactive to light. Ear, Nose and Throat: Oropharynx clear, mucous membranes moist. Ears and nose without eformities. Trachea midline. Respiratory: tight air movment, no wheeze, no rales Cardiovascular: S1 S2 regular. No murmurs, rubs or gallops. Gastrointestinal: Abdomen soft, non-tender, non-distended. Normal bowel sounds.? Neurologic: Cranial nerves II-XII grossly intact. No focal neurological deficits. Moves all extremities spontaneously.? Skin: No rashes or lesions.? Musculoskeletal: No cyanosis or clubbing. Psychiatric: Normal mood and affect? Results Labs CBC and Chem 7: 02/10/21 12:12 02/10/21 12:12 Imaging Radiologist's Impressions: Impressions Chest X-Ray 02/10/21 11:58 IMPRESSION: No acute cardiopulmonary process seen. Assessment and Plan (1) Chronic respiratory failure: Qualifiers: Respiratory failure complication: hypoxia and hypercapnia Qualified Code(s): J96.11 - Chronic respiratory failure with hypoxia; J96.12 - Chronic respiratory failure with hypercapnia Status: Acute 51yo female with chronic hypoxic/hypercapneic respiratory failure on home BiPAP (NIV) and O2 due to steroid-dependent asthma/COPD overlap syndrome, obesity with hypoventilation syndrome, tobacco abuse, hypogammoglobulinemia, HTN, and DM2 here with acute on chronic hypoxic respiratory failure likely from underlying COPD/Asthma exacerbation and hypOventialation obesity type # Acute on chronic hypoxic and hypercarbic respiratory failure due to acute COPD/asthma exacerbation, she is on O2 at home and uses NIV, will treat with IV Solumedrol, o2 and bronchodilators by Neb. Work up includes negative covid, negative PNA by CXR. To use BiPAP at night and PRN during the day. # metabolic alkalosis-- likely from compensation from chronic respiratory acidosis, Consider Diamox # hypogammaglobulinemia on IVIG infusion continue as out patient # tobacco use disorder - nicotine patch 21 mg/d, , advised complete cessation # diabetes--to resume home meds including metfomin, Lantus, SSI and diabetic diet #leukocytosis--d/t chronic steroid use # hypertension - continue home medications Lisinopril and Cardizem # history of substance abuse continue methadone #obesity--has singificant impact on her health, weight loss advised #DVT prophylaxis--Lovenox Full Code Quality Stroke Does the patient have a stroke diagnosis?: No VTE Prior VTE?: No VTE Risk Level:: Medical - moderate - high VTE Device Contraindication: Treatment Not Indicated VTE Drug Contraindication: N/A - Med Ordered
--- NOTE | 2021-02-10 15:10 | PHA.MEDREC ---
Pharmacy Consult ? Medication Reconciliation Pharmacy has completed the medication reconciliation. Patient is no longer taking azithromycin and states she gets her methadone from [facility] methadone clinic. Thanks Katerine Soto Pharm D
[2021-02-10 15:36] LABS: Glucose, Whole Blood 226 mg/dL (60-115)
[2021-02-10] MEDS: Albuterol/Iprat 2.5/0.5MG 3 ML AMPUL.NEB INHALE ×2 (15:49→19:15)
[2021-02-10 15:50] LABS: Troponin-I High Sensitivity 15.1 ng/L (<3.5-17.0)
--- NOTE | 2021-02-10 16:46 | PC.NURSE ---
Pt taken off the bipap and is on a NC at 4lpm. Pt does not appear to be in any distress at this time and is talking in full sentences.
[2021-02-10 17:44] LABS: Glucose, Whole Blood 296 mg/dL (60-115)
[2021-02-10] MEDS: Insulin Lispro 100 UNIT/ML 3 ML VIAL SUBCUT ×2 (18:23→22:05)
[2021-02-10] MEDS: methylPREDNISolone Sod Succ 40 MG/ML VIAL 30 MG IVPUSH (18:23)
[2021-02-10] MEDS: Enoxaparin Sodium 40 MG/0.4 ML SYRINGE SUBCUT (19:03)
--- NOTE | 2021-02-10 19:06 | PC.NURSE ---
RN assumed care at 1900. Pt alert and oriented x4, calm and cooperative. Pt denies pain. Pt remains on 4 liters O2 nasal canula at this time. Respiratory at bedside now. Pt states SOB has improved. Pt sitting up on edge of bed eating. IV remains intact and flushes without issues. Vitals stable. Waiting to give report at this time, will continue to monitor.
[2021-02-10 22:01] LABS: Glucose, Whole Blood 291 mg/dL (60-115)
[2021-02-11] MEDS: methylPREDNISolone Sod Succ 40 MG/ML VIAL 30 MG IVPUSH ×2 (00:05→05:35)
[2021-02-11] MEDS: 0.9 % Sodium Chloride Flush 3 ML SYRINGE IVFLUSH ×2 (00:13→07:36)
[2021-02-11 01:13] VITALS: PULSE 114; RESP 25; O2SAT 95
[2021-02-11] MEDS: diphenhydrAMINE HCL 25 MG TABLET PO (01:58)
[2021-02-11 04:53] VITALS: PULSE 109; RESP 24; O2SAT 94
[2021-02-11 05:38] VITALS: BP 118/49; PULSE 94; RESP 16; TEMP 36.9; O2SAT 96
[2021-02-11 07:16] LABS: Glucose, Whole Blood 211 mg/dL (60-115)
[2021-02-11 07:26] VITALS: PULSE 94; PULSE 97; RESP 24; O2SAT 97
[2021-02-11] MEDS: Albuterol/Iprat 2.5/0.5MG 3 ML AMPUL.NEB INHALE (07:26)
[2021-02-11] MEDS: Insulin Lispro 100 UNIT/ML 3 ML VIAL SUBCUT (07:36)
--- NOTE | 2021-02-11 08:39 | MHC.RECOVSUP ---
Recovery Support note: This documentation writer assisted ED staff in confirming methadone dose for this patient. Jia at [facility] [place] reports that patient is on 49mg of methadone and that [facility] delivers the bottles to her. Message left with [employer] to confirm last dose time. Patient reports she last took 49mg of methadone yesterday, 02/10. Informed patient's RN.
--- NOTE | 2021-02-11 08:40 | PC.NURSE ---
oni verfied methadone dose- aware
--- NOTE | 2021-02-11 09:36 | HO.PM.IMPN ---
Subjective Subjective Date of Service: 02/18/21 Interval History: Seen in follow-up for acute on chronic respiratory failure due to combination of COPD asthma and chronic hypoventilation. She is feeling better this morning and wishes to go home, oxygenation is better on nasal canula Review of Systems no fever chronic sob Physical Exam Vital Signs: Vital Signs: Last Vital Signs Temp 98.4 F 02/11/21 05:38 Pulse 97 02/11/21 07:26 Resp 24 H 02/11/21 07:26 BP 118/49 L 02/11/21 05:38 Pulse Ox 96 02/11/21 05:38 Body Mass Index 40.1 Const: Other: General: AO X 3, no acute distress Resp: CTA bilateral CVS: S1,S2,RRR GI: +BS, NT, no distention Skin: No rash Neuro: motor grossly intact Psych: appropriate affect Objective Data Active Medications Albuterol Sulfate (Albuterol Sulfate (0.083%) 2.5 Mg/3 Ml Vial.Neb) 2.5 mg INHALE Q2H PRN PRN Reason: Shortness of Breath/Wheezing Albuterol Sulfate (Albuterol Sulfate 90 Mcg 8 Gm Inhaler) 2 puff INHALE Q4H PRN PRN Reason: Shortness Of Breath Or Wheezing Albuterol/Ipratropium (Albuterol/Iprat 2.5/0.5mg 3 Ml Ampul.Neb) 3 ml INHALE RQ4H WHILE AWAKE [facility] Last Admin: 02/11/21 07:26 Dose: 3 ml Documented by: LIBAN Albuterol/Ipratropium (Albuterol/Iprat 2.5/0.5mg 3 Ml Ampul.Neb) 3 ml INHALE Q4H PRN PRN Reason: for wheezing Atorvastatin Calcium (Atorvastatin Calcium 20 Mg Tablet) 20 mg PO BEDTIME [facility] Chlorhexidine Gluconate (Chlorhexidine Gluc Oral Rinse 15 Ml Mouthwash) 15 ml BUCCAL BID ANA Clonazepam (Clonazepam 1 Mg Tablet) 1 mg PO BID PRN PRN Reason: Anxiety Diltiazem HCl (Diltiazem Hcl Cd 180 Mg Cap.Er.24h) 360 mg PO DAILY [facility]; Protocol Enoxaparin Sodium (Enoxaparin Sodium 40 Mg/0.4 Ml Syringe) 40 mg SUBCUT Q24H [facility] Last Admin: 02/10/21 19:03 Dose: 40 mg Documented by: HAJA Gabapentin (Gabapentin 100 Mg Capsule) 100 mg PO BID [facility] Insulin Glargine (Insulin Glargine,Hum.Rec.Anlog 100 Unit/Ml 10 Ml Vial) 45 unit SUBCUT BEDTIME [facility] Insulin Human Lispro (Insulin Lispro 100 Unit/Ml 3 Ml Vial) 0 unit SUBCUT QIDACHS [facility]; Protocol Last Admin: 02/11/21 07:36 Dose: 4 unit Documented by: SRINIVAS Lidocaine (Lidocaine 4 % Patch Adh..Patch) 1 patch TRANSDERMA DAILY [facility] Lisinopril (Lisinopril 40 Mg Tablet) 40 mg PO DAILY [facility]; Protocol Loratadine (Loratadine 10 Mg Tablet) 10 mg PO DAILY [facility] Metformin HCl (Metformin Hcl 500 Mg Tablet) 500 mg PO BID [facility] Methadone HCl (Methadone Hcl 20 Mg/2 Ml Oral.Conc) 50 mg PO DAILY [facility] Methylprednisolone Sodium Succinate (Methylprednisolone Sod Succ 40 Mg/Ml Vial) 30 mg IVPUSH Q6H [facility] Last Admin: 02/11/21 05:35 Dose: 30 mg Documented by: ALEJANDRO Montelukast Sodium (Montelukast Sodium 10 Mg Tablet) 10 mg PO BEDTIME [facility] Nicotine (Nicotine 7 Mg Patch.Td24) 7 mg TRANSDERMA DAILY [facility] Nicotine Polacrilex (Nicotine Polacrilex 2 Mg Gum) 2 mg BUCCAL Q3H PRN PRN Reason: nicotine cravings Non-Formulary Medication (Roflumilast [Daliresp]) 1 tab PO DAILY [facility] Pharmacy Consult (Consult Rx Perform Med Rec) 1 each MISCELLANE ONCE PRN PRN Reason: Consult order Senna (Sennosides 8.6 Mg Tablet) 8.6 mg PO BEDTIME PRN PRN Reason: constipation Sodium Chloride (0.9 % Sodium Chloride Flush 3 Ml Syringe) 3 ml IVFLUSH QSHIFT [facility] Last Admin: 02/11/21 07:36 Dose: 3 ml Documented by: SRINIVAS Sodium Chloride (Sodium Chloride 3 % Inhalation 15 Ml Vial.Neb) 4 ml INHALE BID [facility] Theophylline (Theophylline Anhydrous Er 400 Mg Tab.Er.24h) 400 mg PO BID [facility] Tiotropium [place] (Tiotropium [place] 18 Mcg Cap.W.Dev) 18 puff INHALE DAILY [facility] Zolpidem Tartrate (Zolpidem Tartrate 5 Mg Tablet) 10 mg PO BEDTIME PRN PRN Reason: Insomnia Labs CBC & Chem 7: 02/10/21 12:12 02/10/21 12:12 Labs: Laboratory Results - last 24 hr 02/10/21 02/10/21 02/10/21 12:12 12:12 12:12 MCV 100.0 H MCH 31.0 MCHC 31.0 RDW 12.6 Plt Count 294 MPV 8.8 L Immature Gran % (Auto) 0.8 H Neut % (Auto) 82.9 H Lymph % (Auto) 11.0 L [place] % (Auto) 4.7 Eos % (Auto) 0.4 Baso % (Auto) 0.2 Lymph # (Auto) 1.6 [place] # (Auto) 0.7 Eos # (Auto) 0.1 Baso # (Auto) 0.0 Abs Immat Gran (auto) 0.12 H Absolute Neuts (auto) 12.0 H Absolute Nucleated RBC 0.000 Nucleated RBC % (auto) 0.0 VBG pH VBG pCO2 VBG pO2 VBG HCO3 VBG O2 Saturation VBG Base Excess Anion Gap 11 L Estim Creat Clear Calc 94.2 Estimated GFR > 60 POC Glucose Random Glucose 131 H Lactic Acid 0.9 Calcium 9.6 D Magnesium 1.8 Total Bilirubin 0.3 Direct Bilirubin < 0.2 AST 29 ALT 37 H Alkaline Phosphatase 64 Troponin I High Sens B-Natriuretic Peptide Total Protein 7.3 Albumin 3.9 COVID-19 (PAPO) COVID-19 Clin Com 02/10/21 02/10/21 02/10/21 12:12 12:12 12:23 MCV MCH MCHC RDW Plt Count MPV Immature Gran % (Auto) Neut % (Auto) Lymph % (Auto) [place] % (Auto) Eos % (Auto) Baso % (Auto) Lymph # (Auto) [place] # (Auto) Eos # (Auto) Baso # (Auto) Abs Immat Gran (auto) Absolute Neuts (auto) Absolute Nucleated RBC Nucleated RBC % (auto) VBG pH 7.35 VBG pCO2 79 VBG pO2 124 VBG HCO3 44 H VBG O2 Saturation 98.0 VBG Base Excess 14.8 Anion Gap Estim Creat Clear Calc Estimated GFR POC Glucose Random Glucose Lactic Acid Calcium Magnesium Total Bilirubin Direct Bilirubin AST ALT Alkaline Phosphatase Troponin I High Sens 14.5 D B-Natriuretic Peptide < 10 Total Protein Albumin COVID-19 (PAPO) Negative COVID-19 Clin Com See Note 02/10/21 02/10/21 02/10/21 15:13 15:32 17:37 MCV MCH MCHC RDW Plt Count MPV Immature Gran % (Auto) Neut % (Auto) Lymph % (Auto) [place] % (Auto) Eos % (Auto) Baso % (Auto) Lymph # (Auto) [place] # (Auto) Eos # (Auto) Baso # (Auto) Abs Immat Gran (auto) Absolute Neuts (auto) Absolute Nucleated RBC Nucleated RBC % (auto) VBG pH VBG pCO2 VBG pO2 VBG HCO3 VBG O2 Saturation VBG Base Excess Anion Gap Estim Creat Clear Calc Estimated GFR POC Glucose 226 H 296 H Random Glucose Lactic Acid Calcium Magnesium Total Bilirubin Direct Bilirubin AST ALT Alkaline Phosphatase Troponin I High Sens 15.1 B-Natriuretic Peptide Total Protein Albumin COVID-19 (PAPO) COVID-19 Clin Com 02/10/21 02/11/21 21:58 07:13 MCV MCH MCHC RDW Plt Count MPV Immature Gran % (Auto) Neut % (Auto) Lymph % (Auto) [place] % (Auto) Eos % (Auto) Baso % (Auto) Lymph # (Auto) [place] # (Auto) Eos # (Auto) Baso # (Auto) Abs Immat Gran (auto) Absolute Neuts (auto) Absolute Nucleated RBC Nucleated RBC % (auto) VBG pH VBG pCO2 VBG pO2 VBG HCO3 VBG O2 Saturation VBG Base Excess Anion Gap Estim Creat Clear Calc Estimated GFR POC Glucose 291 H 211 H Random Glucose Lactic Acid Calcium Magnesium Total Bilirubin Direct Bilirubin AST ALT Alkaline Phosphatase Troponin I High Sens B-Natriuretic Peptide Total Protein Albumin COVID-19 (PAPO) COVID-19 Clin Com Assessment and Plan (1) Asthma with COPD with exacerbation: Status: Resolved Assessment and Plan: 51yo female with chronic hypoxic/hypercapneic respiratory failure on home BiPAP (NIV) and O2 due to steroid-dependent asthma/COPD overlap syndrome, obesity with hypoventilation syndrome,? tobacco abuse, hypogammoglobulinemia, HTN, and DM2 here with acute on chronic hypoxic respiratory failure likely from underlying COPD/Asthma exacerbation and hypOventialation obesity type # Acute on chronic hypoxic and hypercarbic respiratory failure due to acute COPD/asthma exacerbation, she is on O2 at home and uses NIV. She was treated overnight with IV steroid, used BiPAP at night, she feels much better this morning, she is mainting oxygenataion with nasal canula and wishes to go home. Will put on Prednisone 40 for few days and lower back to to 20, and to follow up with her pumonologist on outpatient basis. # metabolic alkalosis-- likely from compensation from chronic respiratory acidosis, stable # hypogammaglobulinemia on IVIG infusion continue on outpatient basis # tobacco use disorder - nicotine patch 21 mg/d, advised complete cessation # diabetes--to resume home meds including metfomin, Lantus, SSI and diabetic diet #leukocytosis--d/t chronic steroid use # hypertension -? continue home medications Lisinopril and Cardizem # history of substance abuse continue methadone #obesity--has singificant impact on her health, weight loss advised Disposition --home today #DVT prophylaxis--Lovenox Quality Stroke Does the patient have a stroke diagnosis?: No VTE Prior VTE?: No VTE Risk Level:: Medical - moderate - high VTE Device Contraindication: Treatment Not Indicated VTE Drug Contraindication: N/A - Med Ordered
--- NOTE | 2021-02-11 09:52 | PC.NURSE ---
md at bedside plan to dc pt
--- NOTE | 2021-02-11 09:58 | PM.DS ---
DS: Providers Provider Date of Service: 02/11/21 Date of admission: 02/10/21 14:53 Primary care physician: Kelli Benavides MD Consults: 02/11/21 09:35 Consult to Pulmonology Routine Consulting Provider: Allan Brito Reason for consultation: acute on chronic resp failure DS: Diagnosis Discharge Diagnosis (1) Asthma with COPD with exacerbation: Status: Resolved DS: Summary Hospital Course Hospital Course: 51yo female with chronic hypoxic/hypercapneic respiratory failure on home BiPAP (NIV) and O2 due to steroid-dependent asthma/COPD overlap syndrome, obesity with hypoventilation syndrome,? tobacco abuse, hypogammoglobulinemia, HTN, and DM2 here with acute on chronic hypoxic respiratory failure likely from underlying COPD/Asthma exacerbation and hypOventialation obesity type. Patient was admitted overnight for exacerbation of asthma/COPD on top of chronic hypoventilation, obesity type. A showed maintained on BiPAP on during the day as needed and at night, bronchodilators schedule and p.r.n.. IV steroid overnight # Acute on chronic hypoxic and hypercarbic respiratory failure due to acute COPD/asthma exacerbation, she is on O2 at home and uses NIV. She was treated overnight with IV steroid, used BiPAP at night, she feels much better this morning, she is mainting oxygenataion with nasal canula and she wishes to go home. Will put on Prednisone 40 for few days and lower back to to 20, and to follow up with her pumonologist on outpatient basis. # metabolic alkalosis-- likely from compensation from chronic respiratory acidosis, stable # hypogammaglobulinemia on IVIG infusion continue on outpatient basis # tobacco use disorder - nicotine patch 21 mg/d, advised complete cessation # diabetes--to resume home meds including metfomin, Lantus, SSI and diabetic diet #leukocytosis--d/t chronic steroid use # hypertension -? continue home medications Lisinopril and Cardizem # history of substance abuse continue methadone #obesity--has singificant impact on her health, weight loss advised Disposition --home today Time Spent with Patient Time attestation: Total time spent providing and/or coordinating discharge services: Discharge coordination time: Greater than 30 minutes Quality: Stroke Does the patient have a stroke diagnosis?: No Physical Exam Vital Signs: Vital Signs: Last Vital Signs Temp 98.4 F 02/11/21 05:38 Pulse 97 02/11/21 07:26 Resp 24 H 02/11/21 07:26 BP 118/49 L 02/11/21 05:38 Pulse Ox 96 02/11/21 05:38 Body Mass Index 40.1 DS: Data Data Completed and Pending Completed studies during hospitalization [Text1]: Procedures Assistance with Respiratory Ventilation, Less than 24 Consecutive Hours, Continuous Positive Airway Pressure (12/15/20) Labs on day of discharge: Laboratory Results - last 24 hr 02/10/21 02/10/21 02/10/21 12:12 12:12 12:12 WBC 14.5 H RBC 4.20 Hgb 13.0 Hct 42.0 MCV 100.0 H MCH 31.0 MCHC 31.0 RDW 12.6 Plt Count 294 MPV 8.8 L Immature Gran % (Auto) 0.8 H Neut % (Auto) 82.9 H Lymph % (Auto) 11.0 L [place] % (Auto) 4.7 Eos % (Auto) 0.4 Baso % (Auto) 0.2 Lymph # (Auto) 1.6 [place] # (Auto) 0.7 Eos # (Auto) 0.1 Baso # (Auto) 0.0 Abs Immat Gran (auto) 0.12 H Absolute Neuts (auto) 12.0 H Absolute Nucleated RBC 0.000 Nucleated RBC % (auto) 0.0 VBG pH VBG pCO2 VBG pO2 VBG HCO3 VBG O2 Saturation VBG Base Excess Sodium 137 Potassium 4.4 Chloride 92 L Carbon Dioxide 38 H Anion Gap 11 L BUN 17 H Creatinine 0.75 Estim Creat Clear Calc 94.2 Estimated GFR > 60 POC Glucose Random Glucose 131 H Lactic Acid 0.9 Calcium 9.6 D Magnesium 1.8 Total Bilirubin 0.3 Direct Bilirubin < 0.2 AST 29 ALT 37 H Alkaline Phosphatase 64 Troponin I High Sens B-Natriuretic Peptide Total Protein 7.3 Albumin 3.9 COVID-19 (PAPO) COVID-19 Clin Com 02/10/21 02/10/21 02/10/21 12:12 12:12 12:23 WBC RBC Hgb Hct MCV MCH MCHC RDW Plt Count MPV Immature Gran % (Auto) Neut % (Auto) Lymph % (Auto) [place] % (Auto) Eos % (Auto) Baso % (Auto) Lymph # (Auto) [place] # (Auto) Eos # (Auto) Baso # (Auto) Abs Immat Gran (auto) Absolute Neuts (auto) Absolute Nucleated RBC Nucleated RBC % (auto) VBG pH 7.35 VBG pCO2 79 VBG pO2 124 VBG HCO3 44 H VBG O2 Saturation 98.0 VBG Base Excess 14.8 Sodium Potassium Chloride Carbon Dioxide Anion Gap BUN Creatinine Estim Creat Clear Calc Estimated GFR POC Glucose Random Glucose Lactic Acid Calcium Magnesium Total Bilirubin Direct Bilirubin AST ALT Alkaline Phosphatase Troponin I High Sens 14.5 D B-Natriuretic Peptide < 10 Total Protein Albumin COVID-19 (PAPO) Negative COVID-19 Clin Com See Note 02/10/21 02/10/21 02/10/21 15:13 15:32 17:37 WBC RBC Hgb Hct MCV MCH MCHC RDW Plt Count MPV Immature Gran % (Auto) Neut % (Auto) Lymph % (Auto) [place] % (Auto) Eos % (Auto) Baso % (Auto) Lymph # (Auto) [place] # (Auto) Eos # (Auto) Baso # (Auto) Abs Immat Gran (auto) Absolute Neuts (auto) Absolute Nucleated RBC Nucleated RBC % (auto) VBG pH VBG pCO2 VBG pO2 VBG HCO3 VBG O2 Saturation VBG Base Excess Sodium Potassium Chloride Carbon Dioxide Anion Gap BUN Creatinine Estim Creat Clear Calc Estimated GFR POC Glucose 226 H 296 H Random Glucose Lactic Acid Calcium Magnesium Total Bilirubin Direct Bilirubin AST ALT Alkaline Phosphatase Troponin I High Sens 15.1 B-Natriuretic Peptide Total Protein Albumin COVID-19 (PAOP) COVID-[employer] 02/10/21 02/11/21 21:58 07:13 WBC RBC Hgb Hct MCV MCH MCHC RDW Plt Count MPV Immature Gran % (Auto) Neut % (Auto) Lymph % (Auto) [place] % (Auto) Eos % (Auto) Baso % (Auto) Lymph # (Auto) [place] # (Auto) Eos # (Auto) Baso # (Auto) Abs Immat Gran (auto) Absolute Neuts (auto) Absolute Nucleated RBC Nucleated RBC % (auto) VBG pH VBG pCO2 VBG pO2 VBG HCO3 VBG O2 Saturation VBG Base Excess Sodium Potassium Chloride Carbon Dioxide Anion Gap BUN Creatinine Estim Creat Clear Calc Estimated GFR POC Glucose 291 H 211 H Random Glucose Lactic Acid Calcium Magnesium Total Bilirubin Direct Bilirubin AST ALT Alkaline Phosphatase Troponin I High Sens B-Natriuretic Peptide Total Protein Albumin COVID-19 (PAPO) COVID-19 Clin Com Discharge Plan Discharge Anticipated Discharge Date/Time: 02/11/21 09:55 Patient Disposition: Xfer Other Discharge Diagnosis: COPD, asthma exacerbation Referrals: Kelli Benavides MD [Primary Care Provider] - 1 Week Discharge Medications: New prednisone 20 mg tablet 40 mg PO DAILY Qty: 4 RF: 0 Continued tiotropium bromide [Spiriva with HandiHaler] 18 mcg capsule, w/inhalation device 1 cap inhalation DAILY Qty: 30 RF: 11 immun glob S-tck-hntg-IgA 0-50 10 gram recon soln 40 g IV Q4W Qty: 2 RF: 12 ipratropium-albuterol 0.5 mg-3 mg(2.5 mg base)/3 mL solution for nebulization 3 ml inhalation Q4H PRN (Reason: for wheezing) Qty: 540 RF: 6 sodium chloride 3 % solution for nebulization 4 ml inhalation BID Qty: 240 RF: 3 sulfamethoxazole-trimethoprim [Bactrim DS] 800-160 mg tablet 1 tab PO Q12H 21 Days Qty: 42 RF: 0 gabapentin 100 mg capsule 1 cap PO BID RF: 0 Lantus U-100 Insulin 100 unit/mL solution 45 unit subcut BEDTIME RF: 0 diltiazem HCl [Tiadylt ER] 360 mg capsule,extended release 24 hr 1 cap PO DAILY RF: 0 rosuvastatin 5 mg tablet 1 tab PO BEDTIME RF: 0 Daliresp 500 mcg tablet 1 tab PO DAILY RF: 0 lidocaine 5 % adhesive patch,medicated 1 patch topical DAILY RF: 0 insulin lispro [Humalog U-100 Insulin] 100 unit/mL solution See Protocol sliding scale dose subcut TIDAC RF: 0 Arnoldo-24 400 mg capsule,extended release 24hr 400 mg PO BID RF: 0 clonazepam 1 mg Tablet 1 mg PO BID PRN (Reason: Anxiety) RF: 0 zolpidem 10 mg Tablet 10 mg PO BEDTIME PRN (Reason: Insomnia) RF: 0 nicotine 7 mg/24 hr Patch 24 Hour 7 mg transdermal DAILY Qty: 30 RF: 0 montelukast 10 mg tablet 10 mg PO BEDTIME RF: 0 albuterol sulfate [ProAir HFA] 90 mcg/actuation HFA aerosol inhaler 2 puff inhalation Q4H PRN (Reason: Shortness Of Breath Or Wheezing) RF: 0 loratadine [Claritin] 10 mg tablet 10 mg PO DAILY RF: 0 metformin 500 mg tablet 500 mg PO BID RF: 0 lisinopril 40 mg tablet 40 mg PO DAILY RF: 0 methadone 10 mg tablet 49 mg PO DAILY RF: 0 sennosides [Natural Senna Laxative] 8.6 mg tablet 8.6 mg PO BEDTIME PRN (Reason: constipation) Qty: 30 RF: 3 Brovana 15 mcg/2 mL solution for nebulization 2 ml inhalation Q12H 30 Days Qty: 120 RF: 11 budesonide 0.5 mg/2 mL suspension for nebulization 0.5 mg inhalation BID Qty: 120 RF: 11 nicotine (polacrilex) 2 mg gum 2 mg buccal Q3H PRN (Reason: nicotine cravings) 30 Days Qty: 100 RF: 3 chlorhexidine gluconate 0.12 % mouthwash 15 ml buccal BID 14 Days Qty: 473 RF: 1 prednisone 10 mg tablet 20 mg PO DAILY 30 Days Qty: 60 RF: 11 Discharge Orders: Discharge Order (Routine); Ordered 02/11/21 Ordered By: Joao Meehan Diet: advance to usual diet and diabetic diet Activity on Discharge: As tolerated Stand Alone Forms: Patient Portal Discharge page Care Plan Goals: Prevent rehospitalization Health Concerns: Chronic respiratory failure, asthma, COPD, chronic tobacco use, chronic opiate dependence. Chronic hypoventilation syndrome of obesity type. Plan of Treatment: Take prednisone as directed with a 40 mg for the next 2 days then reached resume 20 mg daily. 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 santi Brito in a week call for appointment. Also follow up with your primary care doctor in a week, call for appointment. Assessment: As above Discharge Date/Time: 02/11/21 11:10
[2021-02-11 10:08] VITALS: BP 129/62; PULSE 100
[2021-02-11] MEDS: Loratadine 10 MG TABLET PO (10:08)
[2021-02-11] MEDS: metFORMIN HCl 500 MG TABLET PO (10:08)
[2021-02-11] MEDS: dilTIAZem HCL CD 180 MG CAP.ER.24H 360 MG PO (10:08)
[2021-02-11] MEDS: lisinopriL 40 MG TABLET PO (10:08)
[2021-02-11] MEDS: Chlorhexidine Gluc Oral Rinse 15 ML MOUTHWASH BUCCAL (10:08)
[2021-02-11] MEDS: Gabapentin 100 MG CAPSULE PO (10:08)
[2021-02-11] MEDS: Theophylline Anhydrous ER 400 MG TAB.ER.24H PO (10:09)
[2021-02-11] MEDS: methADONE HCl 20 MG/2 ML ORAL.CONC 50 MG PO (10:09)
--- NOTE | 2021-02-11 10:19 | MHC.CM.PN ---
PT BEING DISCHARGED HOME TODAY WITH RESUMPTION OF SERVICES. DC SUMMARY SENT TO [facility] VIA [employer]. PT TO SELF RESUME [employer] [facility] [employer]SPORT[employer]
== END 2021-02-11 11:10 | disposition other institution (70) | DRG 140 ==
LOC: HO.ED 13:51 → HO.EDOVER 15:07 → HO.IMC 18:44 → HO.EDOVER 19:16
PROVIDERS: Physician Assistant; Admitting Provider Internal Medicine; Emergency Provider Emergency Medicine; PCP Family Medicine; Visit Provider Internal Medicine
DX: J44.1 Chronic obstructive pulmonary disease with (acute) exacerbation (principal); J96.21 Acute and chronic respiratory failure with hypoxia; D80.1 Nonfamilial hypogammaglobulinemia; E87.3 Alkalosis; J45.901 Unspecified asthma with (acute) exacerbation; E66.2 Morbid (severe) obesity with alveolar hypoventilation; E11.9 Type 2 diabetes mellitus without complications; F11.20 Opioid dependence, uncomplicated; F17.210 Nicotine dependence, cigarettes, uncomplicated; Z20.822 Contact with and (suspected) exposure to COVID-19; Z71.6 Tobacco abuse counseling; Z68.41 Body mass index [BMI] 40.0-44.9, adult; J96.22 Acute and chronic respiratory failure with hypercapnia; Z99.81 Dependence on supplemental oxygen; Z79.4 Long term (current) use of insulin; Z79.52 Long term (current) use of systemic steroids; Z79.899 Other long term (current) drug therapy
CPT/HCPCS: 36415; 71045; 80048; 80076; 82803; 82947; 83605; 83735; 83880; 84484; 85025; 87040; 87147; 87205; 87635; 93005; 94640; 94644; 94660; 99219; 99285; 99429; J1650; J2920; J2930; J3475; Q0163

== ENCOUNTER 2021-02-21 13:02 | Inpatient (IN) | payer MEDICAID, SELFPAY ==
[2021-02-21] VITALS (11 sets, daily range): BP systolic 121–159; BP diastolic 54–93; PULSE 96–113; RESP 14–30; TEMP 36.6–37.2; O2SAT 93–98; BMI 28.3
--- NOTE | ~2021-02-21 | XR_ITS ---
EXAMINATION: XR CHEST CLINICAL INFORMATION: Dyspnea. Shortness of breath. COMPARISON: 02/10/2021 TECHNIQUE: Frontal view of the chest was obtained. FINDINGS: Cardiac leads overlie the chest. The lungs are well expanded. There is no focal consolidation, edema, or effusion. No pneumothorax. The cardiomediastinal silhouette is within normal limits. No acute osseous abnormality. XR/XR chest 1V IMPRESSION: No acute pulmonary finding.
--- NOTE | 2021-02-21 13:23 | ECG_ITS ---
Test Reason : DYSPNEA Blood Pressure : / mmHG Vent. Rate : 103 BPM Atrial Rate : 103 BPM P-R Int : 128 ms QRS Dur : 080 ms QT Int : 348 ms P-R-T Axes : 070 046 057 degrees QTc Int : 455 ms Sinus tachycardia Otherwise normal ECG When compared with ECG of 10-FEB-2021 12:11, No significant change was found Referred By: Lucila Aguirre Electronically Signed By:Harris Phillips
--- NOTE | 2021-02-21 13:27 | ED_ITS ---
HPI - Asthma General Chief Complaint: Dyspnea Stated Complaint: SOB,ON HOME O2 @ 2LPM Time Seen by Provider: 02/21/21 13:19 Source: patient, EMS and old records reviewed Mode of arrival: EMS Limitations: no limitations History of Present Illness MD complaint: asthma attack , shortness of breath and wheezing Onset (ago): day(s) (middle of the night, tried nebs and her CPAP) Severity: moderate Context: none known Associated symptoms: dry cough Asthma History: childhood onset Treatments Prior to Arrival: inhaled bronchodilator, oxygen and CPAP Related Data Home Medications Medication Instructions Recorded Confirmed albuterol sulfate 90 mcg/actuation 2 puff INHALATION Q4H PRN 12/30/19 02/21/21 aerosol inhaler (ProAir HFA) lisinopril 40 mg tablet 40 mg PO DAILY 12/30/19 02/21/21 loratadine 10 mg tablet (Claritin) 10 mg PO DAILY 12/30/19 02/21/21 metformin 500 mg tablet 500 mg PO BID 12/30/19 02/21/21 methadone 10 mg tablet 49 mg PO DAILY 12/30/19 02/21/21 montelukast 10 mg tablet 10 mg PO BEDTIME 12/30/19 02/21/21 gabapentin 100 mg capsule 1 cap PO BID 10/14/20 02/21/21 insulin glargine 100 unit/mL 45 unit SUBCUT BEDTIME 10/14/20 02/21/21 subcutaneous solution (Lantus U-100 Insulin) diltiazem HCl 360 mg capsule,24 1 cap PO DAILY 11/16/20 02/21/21 hr,extended release (Tiadylt ER) roflumilast 500 mcg tablet 1 tab PO DAILY 11/16/20 02/21/21 (Daliresp) rosuvastatin 5 mg tablet 1 tab PO BEDTIME 11/16/20 02/21/21 insulin lispro 100 unit/mL See Protocol SUBCUT TIDAC 12/14/20 02/21/21 subcutaneous solution (Humalog U-100 Insulin) lidocaine 5 % topical patch 1 patch TOPICAL DAILY 12/14/20 02/21/21 theophylline 400 mg 400 mg PO BID 12/14/20 02/21/21 capsule,extended release 24 hr (Arnoldo-24) clonazepam 1 mg tablet 1 mg PO BID PRN 02/10/21 02/21/21 zolpidem 10 mg tablet 10 mg PO BEDTIME PRN 02/10/21 02/21/21 prednisone 5 mg tablet 10 mg PO DAILY 02/21/21 02/21/21 Previous Rx's Medication Instructions Recorded tiotropium bromide 18 mcg capsule 1 cap INHALATION DAILY #30 inh 05/11/20 with inhalation device (Spiriva with HandiHaler) immune glob,gamma(IgG) 10 40 g IV Q4W #2 ea 06/16/20 aito-wrb-kugp-IgA 0 to 50 mcg/mL IV solution arformoterol 15 mcg/2 mL solution 2 ml INHALATION Q12H 30 Days #120 09/20/20 for nebulization (Brovana) ml budesonide 0.5 mg/2 mL suspension 0.5 mg (2 mL) INHALATION BID #120 09/20/20 for nebulization ml ipratropium 0.5 mg-albuterol 3 mg 3 ml INHALATION Q4H PRN #540 ml 10/30/20 (2.5 mg base)/3 mL nebulization soln nicotine (polacrilex) 2 mg gum 2 mg BUCCAL Q3H PRN 30 Days #100 ea 11/23/20 sennosides 8.6 mg tablet (Natural 8.6 mg PO BEDTIME PRN #30 tab 11/24/20 Senna Laxative) nicotine 7 mg/24 hr daily 7 mg TRANSDERMAL DAILY #30 ea 12/17/20 transdermal patch chlorhexidine gluconate 0.12 % 15 ml BUCCAL BID 14 Days #473 ml 12/18/20 mouthwash sodium chloride 3 % for 4 ml INHALATION BID #240 ml 01/22/21 nebulization sulfamethoxazole 800 1 tab PO Q12H 21 Days #42 tab 02/05/21 mg-trimethoprim 160 mg tablet (Bactrim DS) Allergies Allergy/AdvReac Type Severity Reaction Status Date / Time No Known Allergies Allergy Verified 02/02/21 10:25 [No Known Allergies*] Review of Systems Review of Systems: Constitutional : No Fever, No Chills ENT/Mouth : No Hoarseness, No sore throat, No Rhinorrhea Eyes: No Redness, No Discharge, No Vision Changes Cardiovascular : No Chest Pain, positive SOB, positive Dyspnea on Exertion, No Edema Respiratory : positive Cough, No Sputum, positive Wheezing, Gastrointestinal : No Nausea, No Vomiting, No Diarrhea, No abdominal Pain Genitourinary : No Dysuria, No Hematuria Musculoskeletal : No joint pain, No Myalgias Skin : No rash Neuro : No Weakness, No Numbness, No Headache Psych : No anxiety, depression Heme/Lymph: No Bruising, No Bleeding Endocrine : No Polyuria, No Polydipsia All other systems reviewed and are negative [facility] Past Medical History Attestation statement: The following information was validated with the patient. Medical History Acidosis, lactic Asthma with acute exacerbation Asthma with COPD with exacerbation Asthma-COPD overlap syndrome Asthma-COPD overlap syndrome Blood bacterial culture positive Chronic respiratory failure Essential hypertension Hyperlipidemia, unspecified Hypogammaglobulinemia Leukocytosis Metabolic alkalosis with respiratory acidosis Poor dentition Respiratory failure, acute and chronic Tachycardia Tobacco abuse Tobacco dependence Type 2 diabetes mellitus with unspecified complications Surgical History H/O tubal ligation Family History Family History Father Diabetes Other Asthma Social History Social History Household Members: Significant Other and Children Household Members Other:: 3 Housing: Apartment Do you presently have visiting nurse or other home services: Yes Alcohol intake: unknown Patient Tobacco Use Status: Current someday Tobacco user Tobacco use type: Cigarette Years Smoked: 20 years e-Cigarette/Vaping Use: Currently Using Second Hand Smoke Exposure: No Substance Use Type: Former Substance User Advance Directives: Yes Advance Directives on File: Yes Advance Directives Date on File: 11/16/20 service: No Current occupational status: disabled Physical Exam Vital Signs: Vital Signs: Last Vital Signs Temp 99 F 02/21/21 13:50 Pulse 96 02/21/21 16:43 Resp 16 02/21/21 16:43 BP 142/61 H 02/21/21 13:50 Pulse Ox 96 02/21/21 16:43 Oxygen Flow Rate 2 02/21/21 13:50 BMI result Body Mass Index 28.3 Appearance: Alert. Oriented X3. Mild acute distress. Eyes: Pupils equal, round and reactive to light. ENT: Pharynx normal. Neck: Normal inspection. Neck supple. CVS: Normal heart rate and rhythm. Pulses normal. Respiratory: Mild respiratory distress. Breath sounds diminished with insp and exp wheezes throughout Abdomen: Soft and nontender. Skin: Skin warm and dry. Normal skin color. Normal skin turgor. Extremities: No lower extremity edema. No calf ttp Neuro: Oriented X 3. No motor deficit. No sensory deficit. Course Course Course Narrative: compensated ABG chronic retainer - patient wants to go on her bipap which she uses frequently throughout the day. doing well on bipap, GCS 15 planned admit MDM - Asthma MDM Narrative Medical decision making narrative: 51 yo female with hx of COPD chronic resp failure on home O2 and CPAP at this time c/o exacerbation - she continues to smoke she is not vaccinated. Will need labs, cultures, IV steroids hour long neb, CXR dispo per results and findings. Lab Data Result diagrams: 02/21/21 13:37 02/21/21 13:37 Labs: Lab Results 02/21/21 02/21/21 02/21/21 Range/Units 13:37 13:37 13:37 WBC 15.2 H (4.8-10.8) X10*3/uL RBC 4.07 L (4.20-5.50) X10*6/uL Hgb 12.7 (12.0-16.0) g/dl Hct 41.2 (37.0-47.0) % MCV 101.2 H (80.0-98.0) fL MCH 31.2 (27.0-33.0) pg MCHC 30.8 L (31.0-35.0) g/dl RDW 12.7 (11.0-16.0) % Plt Count 277 (160-400) X10*3/uL MPV 9.0 L (9.4-12.3) fL Immature Gran % (Auto) 0.9 H (0.0-0.4) % Neut % (Auto) 87.4 H (45-73) % Lymph % (Auto) 6.9 L (20-40) % [place] % (Auto) 4.7 (2-11) % Eos % (Auto) 0.0 (0-4) % Baso % (Auto) 0.1 (0-2) % Lymph # (Auto) 1.0 L (1.2-4.9) X10*3/uL [place] # (Auto) 0.7 (0.1-1.2) X10*3/uL Eos # (Auto) 0.0 (0.0-0.4) X10*3/uL Baso # (Auto) 0.0 (0.0-0.2) X10*3/uL Abs Immat Gran (auto) 0.13 H (0.00-0.03) X10*3/uL Absolute Neuts (auto) 13.3 H (2.0-8.3) x10*3/uL Absolute Nucleated RBC 0.000 (0.0-0.012) X10*3/uL Nucleated RBC % (auto) 0.0 (0.0-0.2) /100WBC O2 Saturation % ABG pH at Pt Temp (7.35-7.45) ABG pCO2 at Pt Temp (32-45) mmHg ABG pO2 at Pt Temp (83-108) mmHg ABG HCO3 (22-26) mmol/L ABG Base Excess (Actual) mmol/L Sodium 139 (135-145) mmol/L Potassium 5.3 H D (3.3-5.1) mmol/L Chloride 92 L (96-108) mmol/L Carbon Dioxide 41 H* (22-29) mmol/L Anion Gap 11 L (12-20) BUN 20 H (9-16) mg/dL Creatinine 0.78 (0.5-1.4) mg/dL Estim Creat Clear Calc 81.4 Estimated GFR > 60 POC Glucose (60-115) mg/dL Random Glucose 269 H (60-115) mg/dL Lactic Acid (0.5-2.0) mmol/L Calcium 9.8 (8.4-10.2) mg/dL Magnesium 2.0 (1.6-2.6) mg/dL Total Bilirubin 0.3 (0.0-1.0) mg/dL Direct Bilirubin < 0.2 (0.0-0.5) mg/dL AST 24 (5-31) U/L ALT 47 H (0-31) U/L Alkaline Phosphatase 56 (39-117) U/L Troponin I High Sens 10.4 (<3.5-17.0) ng/L B-Natriuretic Peptide 24 (<100) pg/mL Total Protein 6.7 (6.5-8.0) g/dL Albumin 3.9 (3.5-5.0) g/dL Lipase 11 (8-78) U/L COVID-19 (PAPO) (Negative) COVID-19 Clin Com 02/21/21 02/21/21 02/21/21 Range/Units 13:37 13:37 13:54 WBC (4.8-10.8) X10*3/uL RBC (4.20-5.50) X10*6/uL Hgb (12.0-16.0) g/dl Hct (37.0-47.0) % MCV (80.0-98.0) fL MCH (27.0-33.0) pg MCHC (31.0-35.0) g/dl RDW (11.0-16.0) % Plt Count (160-400) X10*3/uL MPV (9.4-12.3) fL Immature Gran % (Auto) (0.0-0.4) % Neut % (Auto) (45-73) % Lymph % (Auto) (20-40) % [place] % (Auto) (2-11) % Eos % (Auto) (0-4) % Baso % (Auto) (0-2) % Lymph # (Auto) (1.2-4.9) X10*3/uL [place] # (Auto) (0.1-1.2) X10*3/uL Eos # (Auto) (0.0-0.4) X10*3/uL Baso # (Auto) (0.0-0.2) X10*3/uL Abs Immat Gran (auto) (0.00-0.03) X10*3/uL Absolute Neuts (auto) (2.0-8.3) x10*3/uL Absolute Nucleated RBC (0.0-0.012) X10*3/uL Nucleated RBC % (auto) (0.0-0.2) /100WBC O2 Saturation 94.0 % ABG pH at Pt Temp 7.35 (7.35-7.45) ABG pCO2 at Pt Temp 92 H* (32-45) mmHg ABG pO2 at Pt Temp 80 L (83-108) mmHg ABG HCO3 52 H (22-26) mmol/L ABG Base Excess (Actual) 20.9 mmol/L Sodium (135-145) mmol/L Potassium (3.3-5.1) mmol/L Chloride (96-108) mmol/L Carbon Dioxide (22-29) mmol/L Anion Gap (12-20) BUN (9-16) mg/dL Creatinine (0.5-1.4) mg/dL Estim Creat Clear Calc Estimated GFR POC Glucose (60-115) mg/dL Random Glucose (60-115) mg/dL Lactic Acid 1.0 (0.5-2.0) mmol/L Calcium (8.4-10.2) mg/dL Magnesium (1.6-2.6) mg/dL Total Bilirubin (0.0-1.0) mg/dL Direct Bilirubin (0.0-0.5) mg/dL AST (5-31) U/L ALT (0-31) U/L Alkaline Phosphatase (39-117) U/L Troponin I High Sens (<3.5-17.0) ng/L B-Natriuretic Peptide (<100) pg/mL Total Protein (6.5-8.0) g/dL Albumin (3.5-5.0) g/dL Lipase (8-78) U/L COVID-19 (PAPO) Negative (Negative) COVID-19 Clin Com See Note 02/21/21 Range/Units 14:56 WBC (4.8-10.8) X10*3/uL RBC (4.20-5.50) X10*6/uL Hgb (12.0-16.0) g/dl Hct (37.0-47.0) % MCV (80.0-98.0) fL MCH (27.0-33.0) pg MCHC (31.0-35.0) g/dl RDW (11.0-16.0) % Plt Count (160-400) X10*3/uL MPV (9.4-12.3) fL Immature Gran % (Auto) (0.0-0.4) % Neut % (Auto) (45-73) % Lymph % (Auto) (20-40) % [place] % (Auto) (2-11) % Eos % (Auto) (0-4) % Baso % (Auto) (0-2) % Lymph # (Auto) (1.2-4.9) X10*3/uL [place] # (Auto) (0.1-1.2) X10*3/uL Eos # (Auto) (0.0-0.4) X10*3/uL Baso # (Auto) (0.0-0.2) X10*3/uL Abs Immat Gran (auto) (0.00-0.03) X10*3/uL Absolute Neuts (auto) (2.0-8.3) x10*3/uL Absolute Nucleated RBC (0.0-0.012) X10*3/uL Nucleated RBC % (auto) (0.0-0.2) /100WBC O2 Saturation % ABG pH at Pt Temp (7.35-7.45) ABG pCO2 at Pt Temp (32-45) mmHg ABG pO2 at Pt Temp (83-108) mmHg ABG HCO3 (22-26) mmol/L ABG Base Excess (Actual) mmol/L Sodium (135-145) mmol/L Potassium (3.3-5.1) mmol/L Chloride (96-108) mmol/L Carbon Dioxide (22-29) mmol/L Anion Gap (12-20) BUN (9-16) mg/dL Creatinine (0.5-1.4) mg/dL Estim Creat Clear Calc Estimated GFR POC Glucose 255 H (60-115) mg/dL Random Glucose (60-115) mg/dL Lactic Acid (0.5-2.0) mmol/L Calcium (8.4-10.2) mg/dL Magnesium (1.6-2.6) mg/dL Total Bilirubin (0.0-1.0) mg/dL Direct Bilirubin (0.0-0.5) mg/dL AST (5-31) U/L ALT (0-31) U/L Alkaline Phosphatase (39-117) U/L Troponin I High Sens (<3.5-17.0) ng/L B-Natriuretic Peptide (<100) pg/mL Total Protein (6.5-8.0) g/dL Albumin (3.5-5.0) g/dL Lipase (8-78) U/L COVID-19 (PAPO) (Negative) COVID-19 Clin Com Critical Care Time Critical Care Time Critical Care Time: Yes Total Critical Care Time: 60 Attestation: hour long neb, repeat neb, reassessments, RT and home bipap I attest to this time spent taking care of the patient Discharge Plan Discharge Clinical Impression: COPD (chronic obstructive pulmonary disease) Qualifiers: COPD type: COPD with acute exacerbation Qualified Code(s): J44.1 - Chronic obstructive pulmonary disease with (acute) exacerbation Chronic respiratory failure Qualifiers: Respiratory failure complication: hypoxia and hypercapnia Qualified Code(s): J96.11 - Chronic respiratory failure with hypoxia Patient Disposition: Admitted As Inpatient
[2021-02-21] MEDS: Albuterol Sulfate (0.083%) 2.5 MG/3 ML VIAL.NEB 10 MG INHALE (13:45)
[2021-02-21 13:50] LABS: MANUAL DIFF FLAG NO
[2021-02-21 13:55] LABS: Basophils Percent Auto 0.1 % (0-2); Hematocrit 41.2 % (37.0-47.0); Hemoglobin 12.7 g/dl (12.0-16.0); Imm Gran Abs Auto 0.13 X10*3/uL (0.00-0.03); Imm Gran Pct Auto 0.9 % (0.0-0.4); Lymphocytes Percent Auto 6.9 % (20-40); Mean Corpuscular HGB Conc 30.8 g/dl (31.0-35.0); Mean Corpuscular Hemoglobin 31.2 pg (27.0-33.0); Mean Corpuscular Volume 101.2 fL (80.0-98.0); Monocytes Absolute Auto 0.7 X10*3/uL (0.1-1.2); Monocytes Percent Auto 4.7 % (2-11); Neutrophils Absolute Auto 13.3 x10*3/uL (2.0-8.3); Neutrophils Percent Auto 87.4 % (45-73); Platelet Count 277 X10*3/uL (160-400); Red Blood Count 4.07 X10*6/uL (4.20-5.50); Red Cell Distribution Width 12.7 % (11.0-16.0); White Blood Count 15.2 X10*3/uL (4.8-10.8)
[2021-02-21 13:59] LABS: ABG Refer to POC result
[2021-02-21 14:02] LABS: ABG Base Excess 20.9 mmol/L; ABG HCO3 52 mmol/L (22-26); ABG pCO2 92 mmHg (32-45); ABG pH 7.35 (7.35-7.45); ABG pO2 80 mmHg (83-108)
[2021-02-21] MEDS: methylPREDNISolone Sod Succ 125 MG/2 ML VIAL IVPUSH (14:13)
[2021-02-21 14:15] LABS: Alanine Aminotransferase 47 U/L (0-31); Albumin Level 3.9 g/dL (3.5-5.0); Alkaline Phosphatase 56 U/L (39-117); Anion Gap 11 (12-20); Aspartate Amino Transferase 24 U/L (5-31); Bilirubin Direct < 0.2 mg/dL (0.0-0.5); Bilirubin Total 0.3 mg/dL (0.0-1.0); Blood Urea Nitrogen 20 mg/dL (9-16); Calcium 9.8 mg/dL (8.4-10.2); Carbon Dioxide 41 mmol/L (22-29); Chloride 92 mmol/L (96-108); Creatinine Clr Calc Pharmacy 81.4; Estimated Glomerular Filt Rate > 60; Glucose Random 269 mg/dL (60-115); Lipase 11 U/L (8-78); Potassium 5.3 mmol/L (3.3-5.1); Sodium 139 mmol/L (135-145); Total Protein 6.7 g/dL (6.5-8.0)
[2021-02-21 14:17] LABS: B Type Natriuretic Peptide 24 pg/mL (<100); Troponin-I High Sensitivity 10.4 ng/L (<3.5-17.0)
--- NOTE | 2021-02-21 14:58 | PC.NURSE ---
pt down to 83% on 4L NC. Pt states she uses bipap at home. Respiratory at bedside, pt placed on bipap at this time.
[2021-02-21 15:00] LABS: Glucose, Whole Blood 255 mg/dL (60-115)
[2021-02-21] MEDS: cefTRIAXone sodium 1 GM in 0.9 % Sodium Chloride 50 ML IV (15:23)
--- NOTE | 2021-02-21 15:55 | PHA.MEDREC ---
Pharmacy Consult ? Medication Reconciliation Pharmacy has completed the medication reconciliation. Spoke to patient and confirmed all medications
[2021-02-21 17:04] LABS: COVID-19 Test Negative (Negative)
--- NOTE | 2021-02-21 17:30 | P.HPHOSP_ITS ---
History of Present Illness Date of Service: 02/21/21 Attending physician on admission: Vel Ramires Chief Complaint: Shortness of breath 51-year-old woman well known to hospitalist service presenting with complaints of shortness of breath the last days. Patient has a history of acute on chronic respiratory failure on home oxygen 2-2.5 L and BiPAP. She reported that yesterday she felt some chills and felt like she was shaky . She was discharged from [facility] on 02/11/2021 and at that time treated for acute on chronic respiratory failure secondary to asthma and COPD exacerbation. She denies any recent travel, sick contacts, fever, nausea, vomiting, diarrhea. She continues to smoke several cigarettes a day. Her potassium was noted to be elevated at 5.3, CO2 41 chronically elevated, pCO2 92 chronically elevated as well. Chest x-ray showed no new pulmonary findings. She was given a dose Solu-Medrol, albuterol, Rocephin. She will be admitted for further management treatment of acute on chronic respiratory failure secondary to asthma / COPD exacerbation. Review of Systems Review of Systems: Denies any recent fever chills or decrease in appetite respiratory See HPI cardiovascular see HPI gastrointestinal denies any dysphagia abdominal pain nausea vomiting or diarrhea genitourinary denies any dysuria frequency or hematuria musculoskeletal denies any joint pain or swelling neuropsych denies any weakness or seizures all other systems reviewed are negative [facility], [facility] Medical History (Updated 02/21/21 @ 18:22 by China Brito NP) Asthma-COPD overlap syndrome Chronic respiratory failure Essential hypertension Hyperlipidemia, unspecified Hypogammaglobulinemia Poor dentition Tobacco abuse Type 2 diabetes mellitus with unspecified complications Family History Father Diabetes Other Asthma Surgical History H/O tubal ligation Social History Household Members: Significant Other and Children Household Members Other:: 3 Housing: Apartment Do you presently have visiting nurse or other home services: Yes Alcohol intake: unknown Patient Tobacco Use Status: Current someday Tobacco user Tobacco use type: Cigarette Years Smoked: 20 years e-Cigarette/Vaping Use: Currently Using Second Hand Smoke Exposure: No Substance Use Type: Former Substance User Advance Directives: Yes Advance Directives on File: Yes Advance Directives Date on File: 11/16/20 service: No Current occupational status: disabled Meds Allergies Allergy/AdvReac Type Severity Reaction Status Date / Time No Known Allergies Allergy Verified 02/02/21 10:25 [No Known Allergies*] Active Medications: Current Medications Acetaminophen (Acetaminophen 325 Mg Tablet) 650 mg PO Q6H PRN PRN Reason: Pain, Mild (Pain Scale 1-3) Albuterol Sulfate (Albuterol Sulfate (0.083%) 2.5 Mg/3 Ml Vial.Neb) 2.5 mg INHALE RQ4H WHILE AWAKE [facility]NA Clonazepam (Clonazepam 1 Mg Tablet) 1 mg PO BID PRN PRN Reason: Anxiety Diltiazem HCl (Diltiazem Hcl Cd 180 Mg Cap.Er.24h) 360 mg PO DAILY [facility]; Protocol Gabapentin (Gabapentin 100 Mg Capsule) 100 mg PO BID [facility] Guaifenesin/Dextromethorphan (Guaifenesin Dm 100/10/5 Ml 5 Ml Syrup) 5 ml PO Q 4H PRN PRN Reason: COUGH Insulin Glargine (Insulin Glargine,Hum.Rec.Anlog 100 Unit/Ml 10 Ml Vial) 45 unit SUBCUT BEDTIME [facility] Lisinopril (Lisinopril 40 Mg Tablet) 40 mg PO DAILY [facility]; Protocol Loratadine (Loratadine 10 Mg Tablet) 10 mg PO DAILY [facility] Methadone HCl (Methadone Hcl 10 Mg Tablet) 49 mg PO DAILY [facility] Methylprednisolone Sodium Succinate (Methylprednisolone Sod Succ 40 Mg/Ml Vial) 40 mg IVPUSH Q8H [facility] Montelukast Sodium (Montelukast Sodium 10 Mg Tablet) 10 mg PO BEDTIME [facility] Nicotine Polacrilex (Nicotine Polacrilex 2 Mg Gum) 2 mg BUCCAL Q3H PRN PRN Reason: nicotine cravings Non-Formulary Medication (Lidocaine) 1 patch TOPICAL DAILY [facility] Non-Formulary Medication (Roflumilast [Daliresp]) 1 tab PO DAILY [facility]NA Non-Formulary Medication (Rosuvastatin) 1 tab PO BEDTIME [facility] Non-Formulary Medication (Theophylline [Arnoldo-24]) 400 mg PO BID [facility] Ondansetron HCl (Ondansetron Hcl 4 Mg/2 Ml Vial) 4 mg IVPUSH Q8H PRN PRN Reason: Nausea and Vomiting Pharmacy Consult (Consult Rx Perform Med Rec) 1 each MISCELLANE ONCE PRN PRN Reason: Consult order Senna (Sennosides 8.6 Mg Tablet) 8.6 mg PO BEDTIME PRN PRN Reason: constipation Sodium Chloride (0.9 % Sodium Chloride Flush 3 Ml Syringe) 3 ml IVFLUSH [facility] Zolpidem Tartrate (Zolpidem Tartrate 5 Mg Tablet) 10 mg PO BEDTIME PRN PRN Reason: Insomnia Home Medications Medication Instructions Recorded Confirmed Last Taken Type albuterol sulfate 90 mcg/actuation 2 puff INHALATION Q4H PRN 12/30/19 02/21/21 02/21/21 History aerosol inhaler (ProAir HFA) lisinopril 40 mg tablet 40 mg PO DAILY 12/30/19 02/21/21 02/21/21 History loratadine 10 mg tablet (Claritin) 10 mg PO DAILY 12/30/19 02/21/21 02/21/21 History metformin 500 mg tablet 500 mg PO BID 12/30/19 02/21/21 02/21/21 History methadone 10 mg tablet 49 mg PO DAILY 12/30/19 02/21/21 02/21/21 History montelukast 10 mg tablet 10 mg PO BEDTIME 12/30/19 02/21/21 02/20/21 History gabapentin 100 mg capsule 1 cap PO BID 10/14/20 02/21/21 02/21/21 History insulin glargine 100 unit/mL 45 unit SUBCUT BEDTIME 10/14/20 02/21/21 02/21/21 History subcutaneous solution (Lantus U-100 Insulin) diltiazem HCl 360 mg capsule,24 1 cap PO DAILY 11/16/20 02/21/21 02/21/21 History hr,extended release (Tiadylt ER) roflumilast 500 mcg tablet 1 tab PO DAILY 11/16/20 02/21/21 02/21/21 History (Daliresp) rosuvastatin 5 mg tablet 1 tab PO BEDTIME 11/16/20 02/21/21 02/20/21 History insulin lispro 100 unit/mL See Protocol SUBCUT TIDAC 12/14/20 02/21/21 02/21/21 History subcutaneous solution (Humalog U-100 Insulin) lidocaine 5 % topical patch 1 patch TOPICAL DAILY 12/14/20 02/21/21 02/21/21 His tory theophylline 400 mg 400 mg PO BID 12/14/20 02/21/21 02/21/21 History capsule,extended release 24 hr (Arnoldo-24) clonazepam 1 mg tablet 1 mg PO BID PRN 02/10/21 02/21/21 02/21/21 History zolpidem 10 mg tablet 10 mg PO BEDTIME PRN 02/10/21 02/21/21 02/20/21 History prednisone 5 mg tablet 10 mg PO DAILY 02/21/21 02/21/21 02/21/21 History Physical Exam Vital Signs and Narrative: Vital Signs: Last Vital Signs Temp 99 F 02/21/21 13:50 Pulse 96 02/21/21 16:43 Resp 16 02/21/21 16:43 BP 142/61 H 02/21/21 13:50 Pulse Ox 96 02/21/21 16:43 Oxygen Flow Rate 2 02/21/21 13:50 BMI result Body Mass Index 28.3 Appearing in no acute distress head is normocephalic atraumatic eyes pupils are PERRLA sclera is anicteric mouth throat mucous membranes are intact and moist neck is supple no lymphadenopathy, no JVD noted lung sounds prolonged expiratory phase, expiratory wheezing heart regular rate rhythm, clear S1, S2 positive bowel sounds, abdomen is soft, nontender, obese neuro patient is alert x3, no focal deficits Results Labs CBC and Chem 7: 02/21/21 13:37 02/21/21 13:37 Labs: Laboratory Results - last 24 hr 02/21/21 02/21/21 02/21/21 13:37 13:37 13:37 MCV 101.2 H MCH 31.2 MCHC 30.8 L RDW 12.7 Plt Count 277 MPV 9.0 L Immature Gran % (Auto) 0.9 H Neut % (Auto) 87.4 H Lymph % (Auto) 6.9 L [place] % (Auto) 4.7 Eos % (Auto) 0.0 Baso % (Auto) 0.1 Lymph # (Auto) 1.0 L [place] # (Auto) 0.7 Eos # (Auto) 0.0 Baso # (Auto) 0.0 Abs Immat Gran (auto) 0.13 H Absolute Neuts (auto) 13.3 H Absolute Nucleated RBC 0.000 Nucleated RBC % (auto) 0.0 O2 Saturation ABG pH at Pt Temp ABG pCO2 at Pt Temp ABG pO2 at Pt Temp ABG HCO3 ABG Base Excess (Actual) Anion Gap 11 L Estim Creat Clear Calc 81.4 Estimated GFR > 60 POC Glucose Random Glucose 269 H Lactic Acid Calcium 9.8 Magnesium 2.0 Total Bilirubin 0.3 Direct Bilirubin < 0.2 AST 24 ALT 47 H Alkaline Phosphatase 56 Troponin I High Sens 10.4 B-Natriuretic Peptide 24 Total Protein 6.7 Albumin 3.9 Lipase 11 COVID-19 (PAPO) COVID-19 Clin Com 02/21/21 02/21/21 02/21/21 13:37 13:37 13:54 MCV MCH MCHC RDW Plt Count MPV Immature Gran % (Auto) Neut % (Auto) Lymph % (Auto) [place] % (Auto) Eos % (Auto) Baso % (Auto) Lymph # (Auto) [place] # (Auto) Eos # (Auto) Baso # (Auto) Abs Immat Gran (auto) Absolute Neuts (auto) Absolute Nucleated RBC Nucleated RBC % (auto) O2 Saturation 94.0 ABG pH at Pt Temp 7.35 ABG pCO2 at Pt Temp 92 H* ABG pO2 at Pt Temp 80 L ABG HCO3 52 H ABG Base Excess (Actual) 20.9 Anion Gap Estim Creat Clear Calc Estimated GFR POC Glucose Random Glucose Lactic Acid 1.0 Calcium Magnesium Total Bilirubin Direct Bilirubin AST ALT Alkaline Phosphatase Troponin I High Sens B-Natriuretic Peptide Total Protein Albumin Lipase COVID-19 (PAPO) Negative COVID-19 Clin Com See Note 02/21/21 14:56 MCV MCH MCHC RDW Plt Count MPV Immature Gran % (Auto) Neut % (Auto) Lymph % (Auto) [place] % (Auto) Eos % (Auto) Baso % (Auto) Lymph # (Auto) [place] # (Auto) Eos # (Auto) Baso # (Auto) Abs Immat Gran (auto) Absolute Neuts (auto) Absolute Nucleated RBC Nucleated RBC % (auto) O2 Saturation ABG pH at Pt Temp ABG pCO2 at Pt Temp ABG pO2 at Pt Temp ABG HCO3 ABG Base Excess (Actual) Anion Gap Estim Creat Clear Calc Estimated GFR POC Glucose 255 H Random Glucose Lactic Acid Calcium Magnesium Total Bilirubin Direct Bilirubin AST ALT Alkaline Phosphatase Troponin I High Sens B-Natriuretic Peptide Total Protein Albumin Lipase COVID-19 (PAPO) COVID-19 Clin Com Imaging Radiologist's Impressions: Impressions Chest X-Ray 02/21/21 14:36 IMPRESSION: No acute pulmonary finding. Assessment and Plan (1) Acute on chronic respiratory failure with hypoxia and hypercapnia: Status: Acute (2) Diabetes mellitus: Status: Acute (3) Hyperkalemia: Status: Acute (4) COPD (chronic obstructive pulmonary disease): Qualifiers: COPD type: COPD with acute exacerbation Qualified Code(s): J44.1 - Chronic obstructive pulmonary disease with (acute) exacerbation Status: Acute 51-year-old woman admitted with acute on chronic respiratory failure secondary to asthma/ COPD exacerbation. On home oxygen and BiPAP. Acute on chronic hypoxic and hypercarbic respiratory failure secondary to COPD/ asthma exacerbation. On home oxygen and noninvasive ventilation IV Solu-Medrol, bronchodilators Supplemental oxygen as needed BiPAP at bedside to use at bedtime and p.r.n. during the day Hyperkalemia. 5.3 Recheck tomorrow, if elevated treat Chronic compensated respiratory acidosis with metabolic alkalosis ABG 7.35/92/80/52 Secondary to COPD/asthma Smoker. Nicotine lozenges Discussed the importance of smoking cessation. Diabetes mellitus Sliding scale, ADA diet Leukocytosis. Chronic secondary to steroid use Hypertension. Stable Continue lisinopril History of tachycardia Likely secondary to respiratory status Continue Cardizem Obesity. BMI 28.3 Needs better weight management as this can contribute to worsening of other comorbidities History of substance abuse Continue methadone DVT prophylaxis with Lovenox Attending Dr. Ramires Quality Stroke Does the patient have a stroke diagnosis?: No VTE Prior VTE?: No VTE Risk Level:: Medical - moderate - high VTE Device Contraindication: Treatment Not Indicated VTE Drug Contraindication: N/A - Med Ordered
--- NOTE | 2021-02-21 18:06 | PC.NURSE ---
pt set up with commode in room. call lu in reach.
[2021-02-21] MEDS: Ibuprofen 800 MG TABLET PO (18:48)
[2021-02-21] MEDS: Albuterol Sulfate (0.083%) 2.5 MG/3 ML VIAL.NEB INHALE (19:42)
[2021-02-21] MEDS: Atorvastatin Calcium 20 MG TABLET PO (21:02)
[2021-02-21] MEDS: Montelukast Sodium 10 MG TABLET PO (21:02)
[2021-02-21] MEDS: Insulin Lispro 100 UNIT/ML 3 ML VIAL SUBCUT (21:03)
[2021-02-21] MEDS: Insulin Glargine,Hum.rec.anlog 100 UNIT/ML 10 ML VIAL 45 UNIT SUBCUT (21:03)
[2021-02-21] MEDS: Gabapentin 100 MG CAPSULE PO (21:09)
[2021-02-21] MEDS: clonazePAM 1 MG TABLET PO (21:51)
[2021-02-21] MEDS: methylPREDNISolone Sod Succ 40 MG/ML VIAL IVPUSH (21:51)
[2021-02-21] MEDS: Theophylline Anhydrous ER 400 MG TAB.ER.24H PO (21:55)
[2021-02-22] VITALS (11 sets, daily range): BP systolic 93–134; BP diastolic 54–77; PULSE 84–106; RESP 14–24; TEMP 36.2–36.9; O2SAT 90–100
[2021-02-22 00:11] LABS: Glucose, Whole Blood 290 mg/dL (60-115)
--- NOTE | 2021-02-22 00:22 | PC.NURSE ---
Report given to RN on IMC.
[2021-02-22] MEDS: 0.9 % Sodium Chloride Flush 3 ML SYRINGE IVFLUSH ×4 (00:25→22:03)
[2021-02-22] MEDS: methylPREDNISolone Sod Succ 40 MG/ML VIAL IVPUSH ×3 (06:20→22:02)
[2021-02-22 06:27] LABS: Basophils Percent Auto 0.1 % (0-2); Hematocrit 43.1 % (37.0-47.0); Hemoglobin 13.2 g/dl (12.0-16.0); Imm Gran Pct Auto 0.6 % (0.0-0.4); Lymphocytes Absolute Auto 0.6 X10*3/uL (1.2-4.9); Lymphocytes Percent Auto 3.6 % (20-40); MANUAL DIFF FLAG SCAN; Mean Corpuscular HGB Conc 30.6 g/dl (31.0-35.0); Mean Corpuscular Hemoglobin 31.4 pg (27.0-33.0); Mean Corpuscular Volume 102.4 fL (80.0-98.0); Mean Platelet Volume 9.3 fL (9.4-12.3); Monocytes Absolute Auto 0.4 X10*3/uL (0.1-1.2); Monocytes Percent Auto 2.2 % (2-11); Neutrophils Absolute Auto 15.5 x10*3/uL (2.0-8.3); Neutrophils Percent Auto 93.5 % (45-73); Platelet Count 304 X10*3/uL (160-400); Red Blood Count 4.21 X10*6/uL (4.20-5.50); Red Cell Distribution Width 12.6 % (11.0-16.0); SCAN SMEAR FLAG 1; White Blood Count 16.6 X10*3/uL (4.8-10.8)
[2021-02-22 06:52] LABS: SLIDE REVIEW VERIFIED
[2021-02-22 06:55] LABS: Anion Gap 13 (12-20); Blood Urea Nitrogen 14 mg/dL (9-16); Calcium 10.3 mg/dL (8.4-10.2); Carbon Dioxide 42 mmol/L (22-29); Chloride 89 mmol/L (96-108); Creatinine Clr Calc Pharmacy 94.8; Estimated Glomerular Filt Rate > 60; Glucose Random 170 mg/dL (60-115); Potassium 4.7 mmol/L (3.3-5.1); Sodium 139 mmol/L (135-145)
--- NOTE | 2021-02-22 07:06 | PC.NURSE ---
0645; Critical lab CO2 42. Hospitalist made aware via [employer] at 0648. Day shift nurse made aware.
[2021-02-22] MEDS: Albuterol Sulfate (0.083%) 2.5 MG/3 ML VIAL.NEB INHALE ×4 (07:18→19:27)
[2021-02-22 07:42] LABS: Glucose, Whole Blood 230 mg/dL (60-115)
[2021-02-22] MEDS: Insulin Lispro 100 UNIT/ML 3 ML VIAL SUBCUT ×4 (07:47→22:03)
[2021-02-22] MEDS: lisinopriL 40 MG TABLET PO (07:49)
[2021-02-22] MEDS: Gabapentin 100 MG CAPSULE PO ×2 (07:49→22:02)
[2021-02-22] MEDS: Loratadine 10 MG TABLET PO (07:49)
[2021-02-22] MEDS: Theophylline Anhydrous ER 400 MG TAB.ER.24H PO ×2 (07:49→22:02)
[2021-02-22] MEDS: Lidocaine 4 % Patch ADH..PATCH 1 PATCH TRANSDERMA (07:49)
[2021-02-22] MEDS: dilTIAZem HCL CD 180 MG CAP.ER.24H 360 MG PO (07:49)
[2021-02-22] MEDS: methADONE HCl 20 MG/2 ML ORAL.CONC 50 MG PO (10:36)
[2021-02-22 11:42] LABS: Glucose, Whole Blood 204 mg/dL (60-115)
--- NOTE | 2021-02-22 11:57 | HO.PM.IMPN ---
Subjective Subjective Date of Service: 02/22/21 Interval History: Being followed for hypercarbic and hypoxic respiratory failure, complaining of persistent shortness of breath, cough times productive of yellow phlegm mostly at a.m., denies fever chills denies sick contacts, unvaccinated. Review of Systems [employer]ER no headache no dizziness General no fever no chills GI no nausea no vomiting no urinary symptoms Review of Systems: Yes all other systems are reviewed and are negative Physical Exam Vital Signs: Vital Signs: Last Vital Signs Temp 98.2 F 02/22/21 11:40 Pulse 95 02/22/21 11:40 Resp 20 02/22/21 11:40 BP 93/77 02/22/21 11:40 Pulse Ox 98 02/22/21 11:40 Oxygen Flow Rate 2 02/21/21 13:50 BMI result Body Mass Index 28.3 Gen: Awake alert x3, mild respiratory distress HEENT: sclera anicteric, moist mucus membranes Neck: supple, no JVD Lungs: Diminished breath sound, bilateral prolonged expiration, bilateral wheeze Heart: regular rate and rhythm, no murmurs Abd: soft, obese, non-tender, non-distended Ext: no edema Skin: No rash Neuro: alert and oriented x3, no focal findings Psych: appropriate affect Objective Data Active Medications Acetaminophen (Acetaminophen 325 Mg Tablet) 650 mg PO Q6H PRN PRN Reason: Pain, Mild (Pain Scale 1-3) Albuterol Sulfate (Albuterol Sulfate (0.083%) 2.5 Mg/3 Ml Vial.Neb) 2.5 mg INHALE RQ4H WHILE AWAKE [facility] Last Admin: 02/22/21 10:58 Dose: 2.5 mg Documented by: RAHEL Atorvastatin Calcium (Atorvastatin Calcium 20 Mg Tablet) 20 mg PO BEDTIME [facility] Last Admin: 02/21/21 21:02 Dose: 20 mg Documented by: SHANAE Clonazepam (Clonazepam 1 Mg Tablet) 1 mg PO BID PRN PRN Reason: Anxiety Last Admin: 02/21/21 21:51 Dose: 1 mg Documented by: SHANAE Dextrose (Dextrose 50 % 25 Gm/50 Ml Vial) 25 gm IVPUSH Q15M PRN; Protocol PRN Reason: per Hypoglycemia Standing Ord. Diltiazem HCl (Diltiazem Hcl Cd 180 Mg Cap.Er.24h) 360 mg PO DAILY [facility]; Protocol Last Admin: 02/22/21 07:49 Dose: 360 mg Documented by: TREVIN Gabapentin (Gabapentin 100 Mg Capsule) 100 mg PO BID [facility] Last Admin: 02/22/21 07:49 Dose: 100 mg Documented by: TREVIN Glucose (Glucose Gel 15 Gm Gel..Gram.) 15 gm PO Q15M PRN; Protocol PRN Reason: per Hypoglycemia Standing Ord. Guaifenesin/Dextromethorphan (Guaifenesin Dm 100/10/5 Ml 5 Ml Syrup) 5 ml PO Q4H PRN PRN Reason: COUGH Insulin Glargine (Insulin Glargine,Hum.Rec.Anlog 100 Unit/Ml 10 Ml Vial) 45 unit SUBCUT BEDTIME [facility] Last Admin: 02/21/21 21:03 Dose: 45 unit Documented by: SHANAE Insulin Human Lispro (Insulin Lispro 100 Unit/Ml 3 Ml Vial) 0 unit SUBCUT QIDACHS [facility]; Protocol Last Admin: 02/22/21 07:47 Dose: 4 unit Documented by: TREVIN Lidocaine (Lidocaine 4 % Patch Adh..Patch) 1 patch TRANSDERMA DAILY [facility] Last Admin: 02/22/21 07:49 Dose: 1 patch Documented by: TREVIN Lisinopril (Lisinopril 40 Mg Tablet) 40 mg PO DAILY [facility]; Protocol Last Admin: 02/22/21 07:49 Dose: 40 mg Documented by: TREVIN Loratadine (Loratadine 10 Mg Tablet) 10 mg PO DAILY [facility] Last Admin: 02/22/21 07:49 Dose: 10 mg Documented by: TREVIN Methadone HCl (Methadone Hcl 20 Mg/2 Ml Oral.Conc) 50 mg PO DAILY [facility] Last Admin: 02/22/21 10:36 Dose: 50 mg Documented by: TREVIN Methylprednisolone Sodium Succinate (Methylprednisolone Sod Succ 40 Mg/Ml Vial) 40 mg IVPUSH Q8H [facility] Last Admin: 02/22/21 06:20 Dose: 40 mg Documented by: NEVIN Montelukast Sodium (Montelukast Sodium 10 Mg Tablet) 10 mg PO BEDTIME [facility] Last Admin: 02/21/21 21:02 Dose: 10 mg Documented by: HO.GARVEN Nicotine Polacrilex (Nicotine Polacrilex 2 Mg Gum) 2 mg BUCCAL Q3H PRN PRN Reason: nicotine cravings Non-Formulary Medication (Roflumilast [Daliresp]) 1 tab PO DAILY [facility] Ondansetron HCl (Ondansetron Hcl 4 Mg/2 Ml Vial) 4 mg IVPUSH Q8H PRN PRN Reason: Nausea and Vomiting Pharmacy Consult (Consult Rx Perform Med Rec) 1 each MISCELLANE ONCE PRN PRN Reason: Consult order Senna (Sennosides 8.6 Mg Tablet) 8.6 mg PO BEDTIME PRN PRN Reason: constipation Sodium Chloride (0.9 % Sodium Chloride Flush 3 Ml Syringe) 3 ml IVFLUSH QSHIFT [facility] Last Admin: 02/22/21 07:54 Dose: 3 ml Documented by: TREVIN Theophylline (Theophylline Anhydrous Er 400 Mg Tab.Er.24h) 400 mg PO BID [facility] Last Admin: 02/22/21 07:49 Dose: 400 mg Documented by: TREVIN Zolpidem Tartrate (Zolpidem Tartrate 5 Mg Tablet) 10 mg PO BEDTIME PRN PRN Reason: Insomnia Labs CBC & Chem 7: 02/22/21 05:45 02/22/21 05:45 Labs: Laboratory Results - last 24 hr 02/21/21 02/21/21 02/21/21 13:37 13:37 13:37 MCV 101.2 H MCH 31.2 MCHC 30.8 L RDW 12.7 Plt Count 277 MPV 9.0 L Immature Gran % (Auto) 0.9 H Neut % (Auto) 87.4 H Lymph % (Auto) 6.9 L [place] % (Auto) 4.7 Eos % (Auto) 0.0 Baso % (Auto) 0.1 Lymph # (Auto) 1.0 L [place] # (Auto) 0.7 Eos # (Auto) 0.0 Baso # (Auto) 0.0 Abs Immat Gran (auto) 0.13 H Absolute Neuts (auto) 13.3 H Absolute Nucleated RBC 0.000 Nucleated RBC % (auto) 0.0 Smear Tech's Comments O2 Saturation ABG pH at Pt Temp ABG pCO2 at Pt Temp ABG pO2 at Pt Temp ABG HCO3 ABG Base Excess (Actual) Anion Gap 11 L Estim Creat Clear Calc 81.4 Estimated GFR > 60 POC Glucose Random Glucose 269 H Lactic Acid Calcium 9.8 Magnesium 2.0 Total Bilirubin 0.3 Direct Bilirubin < 0.2 AST 24 ALT 47 H Alkaline Phosphatase 56 Troponin I High Sens 10.4 B-Natriuretic Peptide 24 Total Protein 6.7 Albumin 3.9 Lipase 11 COVID-19 (PAPO) COVID-19 Clin Com 02/21/21 02/21/21 02/21/21 13:37 13:37 13:54 MCV MCH MCHC RDW Plt Count MPV Immature Gran % (Auto) Neut % (Auto) Lymph % (Auto) [place] % (Auto) Eos % (Auto) Baso % (Auto) Lymph # (Auto) [place] # (Auto) Eos # (Auto) Baso # (Auto) Abs Immat Gran (auto) Absolute Neuts (auto) Absolute Nucleated RBC Nucleated RBC % (auto) Smear Tech's Comments O2 Saturation 94.0 ABG pH at Pt Temp 7.35 ABG pCO2 at Pt Temp 92 H* ABG pO2 at Pt Temp 80 L ABG HCO3 52 H ABG Base Excess (Actual) 20.9 Anion Gap Estim Creat Clear Calc Estimated GFR POC Glucose Random Glucose Lactic Acid 1.0 Calcium Magnesium Total Bilirubin Direct Bilirubin AST ALT Alkaline Phosphatase Troponin I High Sens B-Natriuretic Peptide Total Protein Albumin Lipase COVID-19 (PAPO) Negative COVID-19 Clin Com See Note 02/21/21 02/21/21 02/22/21 14:56 20:45 05:45 MCV 102.4 H MCH 31.4 MCHC 30.6 L RDW 12.6 Plt Count 304 MPV 9.3 L Immature Gran % (Auto) 0.6 H Neut % (Auto) 93.5 H Lymph % (Auto) 3.6 L [place] % (Auto) 2.2 Eos % (Auto) 0.0 Baso % (Auto) 0.1 Lymph # (Auto) 0.6 L [place] # (Auto) 0.4 Eos # (Auto) 0.0 Baso # (Auto) 0.0 Abs Immat Gran (auto) 0.10 H Absolute Neuts (auto) 15.5 H Absolute Nucleated RBC 0.000 Nucleated RBC % (auto) 0.0 Smear Tech's Comments VERIFIED O2 Saturation ABG pH at Pt Temp ABG pCO2 at Pt Temp ABG pO2 at Pt Temp ABG HCO3 ABG Base Excess (Actual) Anion Gap Estim Creat Clear Calc Estimated GFR POC Glucose 255 H 290 H Random Glucose Lactic Acid Calcium Magnesium Total Bilirubin Direct Bilirubin AST ALT Alkaline Phosphatase Troponin I High Sens B-Natriuretic Peptide Total Protein Albumin Lipase COVID-19 (PAPO) COVID-19 Clin Com 02/22/21 02/22/21 02/22/21 05:45 07:28 11:35 MCV MCH MCHC RDW Plt Count MPV Immature Gran % (Auto) Neut % (Auto) Lymph % (Auto) [place] % (Auto) Eos % (Auto) Baso % (Auto) Lymph # (Auto) [place] # (Auto) Eos # (Auto) Baso # (Auto) Abs Immat Gran (auto) Absolute Neuts (auto) Absolute Nucleated RBC Nucleated RBC % (auto) Smear Tech's Comments O2 Saturation ABG pH at Pt Temp ABG pCO2 at Pt Temp ABG pO2 at Pt Temp ABG HCO3 ABG Base Excess (Actual) Anion Gap 13 Estim Creat Clear Calc 94.8 Estimated GFR > 60 POC Glucose 230 H 204 H Random Glucose 170 H Lactic Acid Calcium 10.3 H Magnesium Total Bilirubin Direct Bilirubin AST ALT Alkaline Phosphatase Troponin I High Sens B-Natriuretic Peptide Total Protein Albumin Lipase COVID-19 (PAPO) COVID-19 Clin Com Assessment and Plan (1) Acute on chronic respiratory failure with hypoxia and hypercapnia: Status: Acute (2) Diabetes mellitus: Status: Acute (3) Chronic respiratory failure: Status: Acute (4) Hypogammaglobulinemia: Status: Acute (5) Tobacco abuse: Status: Acute (6) Essential hypertension: Status: Acute Assessment and Plan: 50yo M with chronic hypoxic/hypercapneic respiratory failure on home BiPAP and O2 due to steroid-dependent asthma/COPD overlap syndrome, obesity, tobacco abuse, hypogammoglobulinemia, HTN, and DM2 presented with shortness of breath, dry cough # Acute on chronic hypoxic and hypercarbic respiratory failure due to acute COPD/asthma exacerbation Patient on home oxygen and BiPAP Continue to have shortness of breath and cough this morning Will continue IV Solu-Medrol scheduled and as needed updraft continue BiPAP at night and daytime with naps Will add azithromycin,cough medicine Strongly recommend to abstain from smoking and to have close outpatient follow-up with pulmonology # Hyperkalemia.? 5.3 on admission, now normalized. # chronic metabolic alkalosis-- likely from compensation from chronic respiratory acidosis, ABG 7.35/92/80/52 Secondary to COPD/asthma, will follow # hypogammaglobulinemia on IVIG infusion continue on outpatient basis # tobacco use disorder complete cessation advice , will place on nicotine patch and Nicorette gum as needed # diabetes blood sugar around 200, likely due to steroids continue Lantus, SSI and diabetic diet #leukocytosis--d/t chronic steroid use # hypertension BP soft, on Lisinopril 40 mg and Cardizem 360 daily, BP remains low will adjust medication. # history of substance abuse continue methadone # DVT prophylaxis with Lovenox Quality Stroke Does the patient have a stroke diagnosis?: No VTE Prior VTE?: No VTE Risk Level:: Medical - moderate - high VTE Device Contraindication: Treatment Not Indicated VTE Drug Contraindication: N/A - Med Ordered
[2021-02-22] MEDS: Nicotine 7 MG PATCH.TD24 TRANSDERMA (12:42)
[2021-02-22] MEDS: clonazePAM 1 MG TABLET PO ×2 (12:50→22:10)
[2021-02-22] MEDS: Azithromycin 500 MG in 0.9 % Sodium Chloride 250 ML 125 MG IV (14:44)
--- NOTE | 2021-02-22 15:33 | MHC.CM.PN ---
Addendum entered by Ita Champagne 02/22/21 15:37: PT TO ARRANGE HER OWN TRANSPORTATION AT DC Original Note: PT ON BIPAP WHEN APPROACHED BY CM HOWEVER CONFIRMS THERE HAVE BEEN NO CHANGES SINCE LAST ADMISSION. PT HAS DAILY TOPOGRAPHICAL FIELD ASSISTANT SERVICES AND IS ACTIVE WITH [facility] FOR METHADONE DELIVERY DAILY PT HAS A BIPAP AND HOME O2 WELL A WALKER [facility] NURSE, LUCAS, REQUESTS THAT SHE BE ALERTED AHEAD OF TIME IF PT MAY DC OVER THE WEEKEND THEY WILL HAVE TO ROUTE AIDE HER METHADONE BY 1200 HOURS FRIDAY. LUCAS: [phone] [facility]
[2021-02-22 16:50] LABS: Glucose, Whole Blood 153 mg/dL (60-115)
[2021-02-22] MEDS: guaiFENesin DM 100/10/5 ML 5 ML SYRUP 10 ML PO ×2 (16:50→22:03)
[2021-02-22] MEDS: Acetaminophen 325 MG TABLET 650 MG PO (18:12)
[2021-02-22] MEDS: Sennosides 8.6 MG TABLET PO (18:12)
[2021-02-22] MEDS: Omeprazole 20 MG CAPSULE.DR PO (19:14)
[2021-02-22 20:18] LABS: Glucose, Whole Blood 247 mg/dL (60-115)
[2021-02-22] MEDS: Atorvastatin Calcium 20 MG TABLET PO (22:02)
[2021-02-22] MEDS: Montelukast Sodium 10 MG TABLET PO (22:02)
[2021-02-22] MEDS: Insulin Glargine,Hum.rec.anlog 100 UNIT/ML 10 ML VIAL 45 UNIT SUBCUT (22:03)
[2021-02-23] VITALS (13 sets, daily range): BP systolic 132–159; BP diastolic 60–104; PULSE 59–118; RESP 12–24; TEMP 35.8–37.2; O2SAT 91–98
[2021-02-23 03:47] LABS: Glucose, Whole Blood 320 mg/dL (60-115)
[2021-02-23] MEDS: Insulin Lispro 100 UNIT/ML 3 ML VIAL SUBCUT ×4 (04:30→20:23)
[2021-02-23] MEDS: methylPREDNISolone Sod Succ 40 MG/ML VIAL IVPUSH ×3 (06:43→22:00)
--- NOTE | 2021-02-23 07:24 | HE.PHANOTE ---
Messaged RN to see if the patients family can bring in the non-form medication. Will follow up.
[2021-02-23 07:42] LABS: Glucose, Whole Blood 170 mg/dL (60-115)
[2021-02-23] MEDS: Albuterol Sulfate (0.083%) 2.5 MG/3 ML VIAL.NEB INHALE (08:25)
[2021-02-23] MEDS: Loratadine 10 MG TABLET PO (08:30)
[2021-02-23] MEDS: lisinopriL 40 MG TABLET PO (08:30)
[2021-02-23] MEDS: dilTIAZem HCL CD 180 MG CAP.ER.24H 360 MG PO (08:30)
[2021-02-23] MEDS: 0.9 % Sodium Chloride Flush 3 ML SYRINGE IVFLUSH ×3 (08:30→23:46)
[2021-02-23] MEDS: Theophylline Anhydrous ER 400 MG TAB.ER.24H PO ×2 (08:30→20:23)
[2021-02-23] MEDS: Nicotine 7 MG PATCH.TD24 TRANSDERMA (08:35)
[2021-02-23] MEDS: Lidocaine 4 % Patch ADH..PATCH 1 PATCH TRANSDERMA (08:35)
[2021-02-23] MEDS: guaiFENesin DM 100/10/5 ML 5 ML SYRUP 10 ML PO ×4 (08:36→20:23)
[2021-02-23] MEDS: Gabapentin 100 MG CAPSULE PO ×2 (08:36→20:23)
[2021-02-23] MEDS: methADONE HCl 20 MG/2 ML ORAL.CONC 50 MG PO (08:39)
--- NOTE | 2021-02-23 11:13 | HO.PM.IMPN ---
Subjective Subjective Date of Service: 02/23/21 Interval History: Complaining of intermittent headache, persistent shortness of breath and chest tightness. No acute overnight issues no fevers no chills. 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 Awake alert x3, mild respiratory distress HEENT: sclera anicteric, moist mucus membranes Neck: supple, no JVD Lungs:? Diminished breath sound, bilateral prolonged expiration, bilateral exp wheeze Heart: regular rate and rhythm, no murmurs Abd: soft, obese, non-tender, non-distended Ext: no edema Skin:? No rash Neuro: alert and oriented x3, no focal findings Psych: appropriate affect ? Objective Data Active Medications Acetaminophen (Acetaminophen 325 Mg Tablet) 650 mg PO Q6H PRN PRN Reason: Pain, Mild (Pain Scale 1-3) Last Admin: 02/22/21 18:12 Dose: 650 mg Documented by: HEIDE Albuterol/Ipratropium (Albuterol/Iprat 2.5/0.5mg 3 Ml Ampul.Neb) 3 ml INHALE RQ4H WHILE AWAKE [facility] Atorvastatin Calcium (Atorvastatin Calcium 20 Mg Tablet) 20 mg PO BEDTIME ANA Last Admin: 02/22/21 22:02 Dose: 20 mg Documented by: HORACE Clonazepam (Clonazepam 1 Mg Tablet) 1 mg PO BID PRN PRN Reason: Anxiety Last Admin: 02/22/21 22:10 Dose: 1 mg Documented by: HORACE Dextrose (Dextrose 50 % 25 Gm/50 Ml Vial) 25 gm IVPUSH Q15M PRN; Protocol PRN Reason: per Hypoglycemia Standing Ord. Diltiazem HCl (Diltiazem Hcl Cd 180 Mg Cap.Er.24h) 360 mg PO DAILY [facility]; Protocol Last Admin: 02/23/21 08:30 Dose: 360 mg Documented by: JUSTIN Gabapentin (Gabapentin 100 Mg Capsule) 100 mg PO BID [facility] Last Admin: 02/23/21 08:36 Dose: 100 mg Documented by: JUSTIN Glucose (Glucose Gel 15 Gm Gel..Gram.) 15 gm PO Q15M PRN; Protocol PRN Reason: per Hypoglycemia Standing Ord. Guaifenesin/Dextromethorphan (Guaifenesin Dm 100/10/5 Ml 5 Ml Syrup) 10 ml PO QID [facility] Last Admin: 02/23/21 08:36 Dose: 10 ml Documented by: JUSTIN Azithromycin 500 mg/ Sodium (Chloride) 250 mls @ 125 mls/hr IV Q24H [facility] Last Infusion: 02/22/21 18:08 Dose: 0 mls/hr Documented by: HEIDE Insulin Glargine (Insulin Glargine,Hum.Rec.Anlog 100 Unit/Ml 10 Ml Vial) 45 unit SUBCUT BEDTIME [facility] Last Admin: 02/22/21 22:03 Dose: 45 unit Documented by: HORACE Insulin Human Lispro (Insulin Lispro 100 Unit/Ml 3 Ml Vial) 0 unit SUBCUT QIDACHS [facility]; Protocol Last Admin: 02/23/21 08:30 Dose: 2 unit Documented by: JUSTIN Lidocaine (Lidocaine 4 % Patch Adh..Patch) 1 patch TRANSDERMA DAILY [facility] Last Admin: 02/23/21 08:35 Dose: 1 patch Documented by: JUSTIN Lisinopril (Lisinopril 20 Mg Tablet) 20 mg PO DAILY [facility]; Protocol Methadone HCl (Methadone Hcl 20 Mg/2 Ml Oral.Conc) 50 mg PO DAILY [facility] Last Admin: 02/23/21 08:39 Dose: 50 mg Documented by: JUSTIN Methylprednisolone Sodium Succinate (Methylprednisolone Sod Succ 40 Mg/Ml Vial) 40 mg IVPUSH Q8H [facility] Last Admin: 02/23/21 06:43 Dose: 40 mg Documented by: HORACE Montelukast Sodium (Montelukast Sodium 10 Mg Tablet) 10 mg PO BEDTIME [facility] Last Admin: 02/22/21 22:02 Dose: 10 mg Documented by: HORACE Nicotine (Nicotine 7 Mg Patch.Td24) 7 mg TRANSDERMA DAILY [facility] Last Admin: 02/23/21 08:35 Dose: 7 mg Documented by: JUSTIN Nicotine Polacrilex (Nicotine Polacrilex 2 Mg Gum) 2 mg BUCCAL Q3H PRN PRN Reason: nicotine cravings Non-Formulary Medication (Roflumilast [Daliresp]) 1 tab PO DAILY [facility] Ondansetron HCl (Ondansetron Hcl 4 Mg/2 Ml Vial) 4 mg IVPUSH Q8H PRN PRN Reason: Nausea and Vomiting Pharmacy Consult (Consult Rx Perform Med Rec) 1 each MISCELLANE ONCE PRN PRN Reason: Consult order Senna (Sennosides 8.6 Mg Tablet) 8.6 mg PO BEDTIME PRN PRN Reason: constipation Last Admin: 02/22/21 18:12 Dose: 8.6 mg Documented by: HEIDE Sodium Chloride (0.9 % Sodium Chloride Flush 3 Ml Syringe) 3 ml IVFLUSH QSHIFT [facility] Last Admin: 02/23/21 08:30 Dose: 3 ml Documented by: JUSTIN Theophylline (Theophylline Anhydrous Er 400 Mg Tab.Er.24h) 400 mg PO BID [facility] Last Admin: 02/23/21 08:30 Dose: 400 mg Documented by: JUSTIN Zolpidem Tartrate (Zolpidem Tartrate 5 Mg Tablet) 10 mg PO BEDTIME PRN PRN Reason: Insomnia Labs CBC & Chem 7: 02/22/21 05:45 02/22/21 05:45 Labs: Laboratory Results - last 24 hr 02/22/21 02/22/21 02/22/21 11:35 16:01 20:15 POC Glucose 204 H 153 H 247 H 02/23/21 02/23/21 03:41 07:13 POC Glucose 320 H 170 H Microbiology Microbiology Results: Microbiology 02/21/21 14:12 Blood Culture - Preliminary Blood - Venous No growth after 24 hours. 02/21/21 14:12 Blood Culture - Preliminary Blood - Venous No growth after 24 hours. Assessment and Plan (1) Diabetes mellitus: Status: Acute (2) Acute on chronic respiratory failure with hypoxia and hypercapnia: Status: Acute (3) COPD (chronic obstructive pulmonary disease): Status: Acute (4) Chronic respiratory failure: Status: Acute (5) Hypogammaglobulinemia: Status: Acute Assessment and Plan: 50yo M with chronic hypoxic/hypercapneic respiratory failure on home BiPAP and O2 due to steroid-dependent asthma/COPD overlap syndrome, obesity, tobacco abuse, hypogammoglobulinemia, HTN, and DM2 presented with shortness of breath, dry cough # Acute on chronic hypoxic and hypercarbic respiratory failure due to acute COPD/asthma exacerbation ?? Persistent shortness of breath and cough, slowly improving on home oxygen and BiPAP ?? continue IV Solu-Medrol, scheduled and as needed updraft changed to DuoNeb, continue BiPAP at night and daytime with naps ?? Continue azithromycin day 2, cough medication ?? Strongly recommend to abstain from smoking and to have close outpatient follow-up with pulmonology #? Hyperkalemia.? 5.3 on admission, now normalized. # chronic metabolic alkalosis-- likely from compensation from chronic respiratory acidosis, ABG 7.35/92/80/52 Secondary to COPD/asthma, will give 3 days of Diamox # hypogammaglobulinemia on IVIG infusion continue on outpatient basis # tobacco use disorder ?? complete cessation advice , on nicotine patch and Nicorette gum as needed # diabetes blood sugar around 200, likely due to steroids continue Lantus,? SSI and diabetic diet #leukocytosis--d/t chronic steroid use, stable # hypertension ?? BP soft, on Lisinopril 40 mg and Cardizem 360 daily, will reduce dose of lisinopril to 20 mg and follow BP # history of substance abuse continue methadone # intermittent headache, likely due to hypoxia, multiple medications, stress, related no headache at this time, normal neuro examination will follow. # DVT prophylaxis with Lovenox Quality Stroke Does the patient have a stroke diagnosis?: No VTE Prior VTE?: No VTE Risk Level:: Medical - moderate - high VTE Device Contraindication: Treatment Not Indicated VTE Drug Contraindication: N/A - Med Ordered
[2021-02-23 11:32] LABS: Glucose, Whole Blood 115 mg/dL (60-115)
[2021-02-23] MEDS: Albuterol/Iprat 2.5/0.5MG 3 ML AMPUL.NEB INHALE ×3 (11:46→19:04)
--- NOTE | 2021-02-23 12:47 | MHC.CM.PN ---
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
[2021-02-23] MEDS: clonazePAM 1 MG TABLET PO (13:04)
[2021-02-23] MEDS: Azithromycin 500 MG in 0.9 % Sodium Chloride 250 ML 125 MG IV (13:05)
[2021-02-23] MEDS: acetaZOLAMIDE 250 MG TABLET PO ×2 (13:07→20:23)
[2021-02-23 16:14] LABS: Glucose, Whole Blood 291 mg/dL (60-115)
[2021-02-23 20:13] LABS: Glucose, Whole Blood 349 mg/dL (60-115)
[2021-02-23] MEDS: Atorvastatin Calcium 20 MG TABLET PO (20:23)
[2021-02-23] MEDS: Insulin Glargine,Hum.rec.anlog 100 UNIT/ML 10 ML VIAL 45 UNIT SUBCUT (20:23)
[2021-02-23] MEDS: Montelukast Sodium 10 MG TABLET PO (20:23)
[2021-02-24] VITALS (15 sets, daily range): BP systolic 107–168; BP diastolic 58–71; PULSE 75–107; RESP 12–20; TEMP 36.2–37.1; O2SAT 92–104
[2021-02-24] MEDS: methylPREDNISolone Sod Succ 40 MG/ML VIAL IVPUSH ×3 (06:08→22:00)
[2021-02-24] MEDS: Albuterol/Iprat 2.5/0.5MG 3 ML AMPUL.NEB INHALE ×4 (08:06→20:16)
[2021-02-24 08:13] LABS: Glucose, Whole Blood 241 mg/dL (60-115)
[2021-02-24] MEDS: Insulin Lispro 100 UNIT/ML 3 ML VIAL SUBCUT ×4 (08:46→21:59)
[2021-02-24] MEDS: dilTIAZem HCL CD 180 MG CAP.ER.24H 360 MG PO (08:47)
[2021-02-24] MEDS: guaiFENesin DM 100/10/5 ML 5 ML SYRUP 10 ML PO ×4 (08:48→22:00)
[2021-02-24] MEDS: Gabapentin 100 MG CAPSULE PO ×2 (08:48→22:00)
[2021-02-24] MEDS: 0.9 % Sodium Chloride Flush 3 ML SYRINGE IVFLUSH ×2 (08:48→15:46)
[2021-02-24] MEDS: lisinopriL 20 MG TABLET PO (08:49)
[2021-02-24] MEDS: Nicotine 7 MG PATCH.TD24 TRANSDERMA (08:49)
[2021-02-24] MEDS: acetaZOLAMIDE 250 MG TABLET PO ×2 (08:49→22:00)
[2021-02-24] MEDS: Theophylline Anhydrous ER 400 MG TAB.ER.24H PO ×2 (08:49→22:00)
[2021-02-24] MEDS: methADONE HCl 20 MG/2 ML ORAL.CONC 50 MG PO (08:50)
[2021-02-24] MEDS: Acetaminophen 325 MG TABLET 650 MG PO (11:09)
[2021-02-24 11:40] LABS: Glucose, Whole Blood 312 mg/dL (60-115)
[2021-02-24] MEDS: Azithromycin 500 MG in 0.9 % Sodium Chloride 250 ML 125 MG IV (13:04)
--- NOTE | 2021-02-24 13:54 | HO.PM.IMPN ---
Subjective Subjective Date of Service: 02/24/21 Interval History: Feels better this morning, less short of breath, no chest tightness, denies fever chills, slept better. 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 Awake alert x3, no respiratory distress HEENT: sclera anicteric, moist mucus membranes Neck: supple, no JVD Lungs:? Diminished breath sound, bilateral prolonged expiration, bilateral exp wheeze Heart: regular rate and rhythm, no murmurs Abd: soft, obese, non-tender, non-distended Ext: no edema Skin:? No rash Neuro: alert and oriented x3, no focal findings Psych: appropriate affect ? Objective Data Active Medications Acetaminophen (Acetaminophen 325 Mg Tablet) 650 mg PO Q6H PRN PRN Reason: Pain, Mild (Pain Scale 1-3) Last Admin: 02/24/21 11:09 Dose: 650 mg Documented by: NATALIA Acetazolamide (Acetazolamide 250 Mg Tablet) 250 mg PO BID [facility] Stop: 02/25/21 21:01 Last Admin: 02/24/21 08:49 Dose: 250 mg Documented by: NATALIA Albuterol/Ipratropium (Albuterol/Iprat 2.5/0.5mg 3 Ml Ampul.Neb) 3 ml INHALE RQ4H WHILE AWAKE ANA Last Admin: 02/24/21 12:09 Dose: 3 ml Documented by: WILLIAM Atorvastatin Calcium (Atorvastatin Calcium 20 Mg Tablet) 20 mg PO BEDTIME ANA Last Admin: 02/23/21 20:23 Dose: 20 mg Documented by: NAYE Clonazepam (Clonazepam 1 Mg Tablet) 1 mg PO BID PRN PRN Reason: Anxiety Last Admin: 02/23/21 13:04 Dose: 1 mg Documented by: HO.IGLESM Dextrose (Dextrose 50 % 25 Gm/50 Ml Vial) 25 gm IVPUSH Q15M PRN; Protocol PRN Reason: per Hypoglycemia Standing Ord. Diltiazem HCl (Diltiazem Hcl Cd 180 Mg Cap.Er.24h) 360 mg PO DAILY [facility]; Protocol Last Admin: 02/24/21 08:47 Dose: 360 mg Documented by: NATALIA Gabapentin (Gabapentin 100 Mg Capsule) 100 mg PO BID [facility] Last Admin: 02/24/21 08:48 Dose: 100 mg Documented by: NATALIA Glucose (Glucose Gel 15 Gm Gel..Gram.) 15 gm PO Q15M PRN; Protocol PRN Reason: per Hypoglycemia Standing Ord. Guaifenesin/Dextromethorphan (Guaifenesin Dm 100/10/5 Ml 5 Ml Syrup) 10 ml PO QID [facility] Last Admin: 02/24/21 13:04 Dose: 10 ml Documented by: NATALIA Azithromycin 500 mg/ Sodium (Chloride) 250 mls @ 125 mls/hr IV Q24H [facility] Last Admin: 02/24/21 13:04 Dose: 125 mls/hr Documented by: NATALIA Insulin Glargine (Insulin Glargine,Hum.Rec.Anlog 100 Unit/Ml 10 Ml Vial) 45 unit SUBCUT BEDTIME [facility] Last Admin: 02/23/21 20:23 Dose: 45 unit Documented by: NAYE Insulin Human Lispro (Insulin Lispro 100 Unit/Ml 3 Ml Vial) 0 unit SUBCUT QIDACHS [facility]; Protocol Last Admin: 02/24/21 11:59 Dose: 12 unit Documented by: NATALIA Lidocaine (Lidocaine 4 % Patch Adh..Patch) 1 patch TRANSDERMA DAILY [facility] Last Admin: 02/24/21 08:59 Dose: Not Given Documented by: NATALIA Non-Admin Reason: Patient Refused Lisinopril (Lisinopril 20 Mg Tablet) 20 mg PO DAILY [facility]; Protocol Last Admin: 02/24/21 08:49 Dose: 20 mg Documented by: NATALIA Methadone HCl (Methadone Hcl 20 Mg/2 Ml Oral.Conc) 50 mg PO DAILY [facility] Last Admin: 02/24/21 08:50 Dose: 50 mg Documented by: NATALIA Methylprednisolone Sodium Succinate (Methylprednisolone Sod Succ 40 Mg/Ml Vial) 40 mg IVPUSH Q8H [facility] Last Admin: 02/24/21 13:10 Dose: 40 mg Documented by: NATALIA Montelukast Sodium (Montelukast Sodium 10 Mg Tablet) 10 mg PO BEDTIME [facility] Last Admin: 02/23/21 20:23 Dose: 10 mg Documented by: NAYE Nicotine (Nicotine 7 Mg Patch.Td24) 7 mg TRANSDERMA DAILY [facility] Last Admin: 02/24/21 08:49 Dose: 7 mg Documented by: NATALIA Nicotine Polacrilex (Nicotine Polacrilex 2 Mg Gum) 2 mg BUCCAL Q3H PRN PRN Reason: nicotine cravings Non-Formulary Medication (Roflumilast [Daliresp]) 1 tab PO DAILY [facility] Ondansetron HCl (Ondansetron Hcl 4 Mg/2 Ml Vial) 4 mg IVPUSH Q8H PRN PRN Reason: Nausea and Vomiting Pharmacy Consult (Consult Rx Perform Med Rec) 1 each MISCELLANE ONCE PRN PRN Reason: Consult order Senna (Sennosides 8.6 Mg Tablet) 8.6 mg PO BEDTIME PRN PRN Reason: constipation Last Admin: 02/22/21 18:12 Dose: 8.6 mg Documented by: HEIDE Sodium Chloride (0.9 % Sodium Chloride Flush 3 Ml Syringe) 3 ml IVFLUSH QSHIFT [facility] Last Admin: 02/24/21 08:48 Dose: 3 ml Documented by: NATALIA Theophylline (Theophylline Anhydrous Er 400 Mg Tab.Er.24h) 400 mg PO BID [facility] Last Admin: 02/24/21 08:49 Dose: 400 mg Documented by: NATALIA Zolpidem Tartrate (Zolpidem Tartrate 5 Mg Tablet) 10 mg PO BEDTIME PRN PRN Reason: Insomnia Labs CBC & Chem 7: 02/22/21 05:45 02/22/21 05:45 Labs: Laboratory Results - last 24 hr 02/23/21 02/23/21 02/24/21 16:11 20:01 08:05 POC Glucose 291 H 349 H 241 H 02/24/21 11:17 POC Glucose 312 H Microbiology Microbiology Results: Microbiology 02/21/21 14:12 Blood Culture - Preliminary Blood - Venous No growth after 48 hours. 02/21/21 14:12 Blood Culture - Preliminary Blood - Venous No growth after 48 hours. Assessment and Plan (1) Hyperkalemia: Status: Acute (2) Diabetes mellitus: Status: Acute (3) Acute on chronic respiratory failure with hypoxia and hypercapnia: Status: Acute (4) COPD (chronic obstructive pulmonary disease): Status: Acute (5) Chronic respiratory failure: Status: Acute Assessment and Plan: 50yo M with chronic hypoxic/hypercapneic respiratory failure on home BiPAP and O2 due to steroid-dependent asthma/COPD overlap syndrome, obesity, tobacco abuse, hypogammoglobulinemia, HTN, and DM2 presented with shortness of breath, dry cough # Acute on chronic hypoxic and hypercarbic respiratory failure due to acute COPD/asthma exacerbation ?? Persistent shortness of breath and cough, slowly improving ?? on home oxygen and BiPAP ?? on IV Solu-Medrol will gradually wean,cont. scheduled and as needed updraft , continue BiPAP at night and daytime with naps ?? Continue azithromycin day 3, cough medication ?? Strongly recommend to abstain from smoking and to have close outpatient follow-up with pulmonology #? Hyperkalemia.? 5.3 on admission, now normalized. # chronic metabolic alkalosis-- likely from compensation from chronic respiratory acidosis, ABG 7.35/92/80/52 Secondary to COPD/asthma, on Diamox # hypogammaglobulinemia on IVIG infusion continue on outpatient basis # tobacco use disorder ?? complete cessation advice , on nicotine patch and Nicorette gum as needed # diabetes blood sugar elevated,likely due to steroids continue Lantus, will adjust dose of SSI and diabetic diet #leukocytosis--d/t chronic steroid use, stable # hypertension ?? BP soft, on Cardizem 360 daily, and lisinopril 20 mg dose reduced from 40 mg, follow BP # history of substance abuse continue methadone # intermittent headache, likely due to hypoxia, multiple medications, stress, related no headache at this time, normal neuro examination will follow. # DVT prophylaxis with Lovenox Quality Stroke Does the patient have a stroke diagnosis?: No VTE Prior VTE?: No VTE Risk Level:: Medical - moderate - high VTE Device Contraindication: Treatment Not Indicated VTE Drug Contraindication: N/A - Med Ordered
[2021-02-24 16:08] LABS: Glucose, Whole Blood 262 mg/dL (60-115)
[2021-02-24 20:12] LABS: Glucose, Whole Blood 256 mg/dL (60-115)
[2021-02-24] MEDS: Insulin Glargine,Hum.rec.anlog 100 UNIT/ML 10 ML VIAL 45 UNIT SUBCUT (22:00)
[2021-02-24] MEDS: Montelukast Sodium 10 MG TABLET PO (22:00)
[2021-02-24] MEDS: Atorvastatin Calcium 20 MG TABLET PO (22:01)
[2021-02-24] MEDS: clonazePAM 1 MG TABLET PO (22:07)
[2021-02-25 00:55] VITALS: PULSE 111; RESP 16; O2SAT 99
[2021-02-25 04:00] VITALS: BP 138/96; PULSE 85; RESP 18; TEMP 36.9; O2SAT 94
[2021-02-25 04:36] VITALS: PULSE 86; RESP 12; O2SAT 98
[2021-02-25] MEDS: methylPREDNISolone Sod Succ 40 MG/ML VIAL IVPUSH (05:58)
[2021-02-25] MEDS: 0.9 % Sodium Chloride Flush 3 ML SYRINGE IVFLUSH ×2 (05:58→08:49)
[2021-02-25 06:46] LABS: Anion Gap 12 (12-20); Blood Urea Nitrogen 25 mg/dL (9-16); Calcium 9.5 mg/dL (8.4-10.2); Carbon Dioxide 29 mmol/L (22-29); Chloride 99 mmol/L (96-108); Creatinine Clr Calc Pharmacy 85.9; Estimated Glomerular Filt Rate > 60; Glucose Random 288 mg/dL (60-115); Potassium 4.5 mmol/L (3.3-5.1); Sodium 135 mmol/L (135-145)
[2021-02-25 07:31] VITALS: BP 123/67; PULSE 89; RESP 18; TEMP 36.6; O2SAT 94
[2021-02-25] MEDS: Albuterol/Iprat 2.5/0.5MG 3 ML AMPUL.NEB INHALE ×2 (07:41→11:45)
[2021-02-25 07:44] VITALS: PULSE 88; RESP 18; O2SAT 96
[2021-02-25 08:13] LABS: Glucose, Whole Blood 258 mg/dL (60-115)
[2021-02-25] MEDS: Nicotine 7 MG PATCH.TD24 TRANSDERMA (08:48)
[2021-02-25] MEDS: lisinopriL 20 MG TABLET PO (08:50)
[2021-02-25] MEDS: Theophylline Anhydrous ER 400 MG TAB.ER.24H PO (08:50)
[2021-02-25] MEDS: Gabapentin 100 MG CAPSULE PO (08:50)
[2021-02-25] MEDS: dilTIAZem HCL CD 180 MG CAP.ER.24H 360 MG PO (08:50)
[2021-02-25] MEDS: guaiFENesin DM 100/10/5 ML 5 ML SYRUP 10 ML PO ×2 (08:50→12:56)
[2021-02-25] MEDS: acetaZOLAMIDE 250 MG TABLET PO (08:50)
[2021-02-25] MEDS: Lidocaine 4 % Patch ADH..PATCH 1 PATCH TRANSDERMA (08:51)
[2021-02-25] MEDS: Insulin Lispro 100 UNIT/ML 3 ML VIAL SUBCUT ×2 (08:51→12:55)
[2021-02-25] MEDS: methADONE HCl 20 MG/2 ML ORAL.CONC 50 MG PO (08:53)
--- NOTE | 2021-02-25 09:20 | P.DS_ITS ---
DS: Providers Provider Date of Service: 02/25/21 Date of admission: 02/21/21 17:19 Date of discharge: 02/25/21 Primary care physician: Kelli Benavides MD DS: Diagnosis Discharge Diagnosis (1) Hyperkalemia: Status: Acute (2) Diabetes mellitus: Status: Acute (3) Acute on chronic respiratory failure with hypoxia and hypercapnia: Status: Acute (4) COPD (chronic obstructive pulmonary disease): Status: Acute (5) Chronic respiratory failure: Status: Acute DS: Summary Hospital Course Hospital Course: Chief Complaint: ? Shortness of breath ?51-year-old woman well known to hospitalist service presenting with complaints of shortness of breath the last days.? Patient has a history of acute on chronic respiratory failure on home oxygen 2-2.5 L and BiPAP.? She reported that yesterday she felt some chills and felt like she was? shaky .? She was discharged from [facility] on 02/11/2021 and at that time treated for acute on chronic respiratory failure secondary to asthma and COPD exacerbation.? She denies any recent travel, sick contacts, fever, nausea, vomiting, diarrhea.? She continues to smoke several cigarettes a day.? Her potassium was noted to be elevated at 5.3, CO2 41 chronically elevated, pCO2 92 chronically elevated as well.? Chest x-ray showed no new pulmonary findings.? She was given a dose Solu-Medrol, albuterol, Rocephin.? She will be admitted for further management treatment of acute on chronic respiratory failure secondary to asthma / COPD exacerbation. Hospital course 50yo M with chronic hypoxic/hypercapneic respiratory failure on home BiPAP and O2 due to steroid-dependent asthma/COPD overlap syndrome, obesity, tobacco abuse, hypogammoglobulinemia, HTN, and DM2 presented with shortness of breath, dry cough and diagnosed to have Acute on chronic hypoxic and hypercarbic respiratory failure due to acute COPD/asthma exacerbation patient treated with IV Solu Medrol, is scheduled and as needed DuoNeb and azithromycin patient responded well to above treatment currently doing significantly better therefore being discharged home and recommended to completely abstain from smoking ambulate as tolerated, follow low-calorie diet, she is being discharged on tapering dose of steroids and recommended to continue home inhalers. ?? Hyperkalemia.? 5.3 on admission, now normalized, recommend close outpatient follow-up of BMP Chronic metabolic alkalosis likely from compensation from chronic respiratory acidosis. Hypogammaglobulinemia continue IVIG infusion outpatient tobacco use disorder complete cessation advice , continue nicotine patch and Nicorette gum as needed Diabetes mellitus continue home medication Hypertension noted to have soft blood pressure therefore continued on Cardizem 360 and reduce dose of lisinopril to 20 mg daily ? Time Spent with Patient Time attestation: Total time spent providing and/or coordinating discharge services: Discharge coordination time: Greater than 30 minutes Quality: Stroke Does the patient have a stroke diagnosis?: No Physical Exam Vital Signs: Vital Signs: Last Vital Signs Temp 97.9 F 02/25/21 07:31 Pulse 88 02/25/21 07:44 Resp 18 02/25/21 07:44 BP 123/67 02/25/21 07:31 Pulse Ox 94 02/25/21 07:31 Oxygen Flow Rate 2 02/21/21 13:50 BMI result Body Mass Index 28.3 Gen:? Awake alert x3, no respiratory distress HEENT: s clera anicteric, m oist mucus membran es Neck: supple, n o JVD Lungs:? Good air entry, few sc attered wheeze ,pr olong expirations Heart: regular rat e and rhythm, no m urmurs Abd: soft, obese, non-tender, non-distended Ext : no edema Skin:? No rash Neuro: john rt and oriented x3 , no focal finding s Psych: appropria te affect ? DS: Data Data Completed and Pending Completed studies during hospitalization [Text1]: Procedures Assistance with Respiratory Ventilation, Less than 24 Consecutive Hours, Continuous Positive Airway Pressure (02/10/21) Labs on day of discharge: Laboratory Results - last 24 hr 02/24/21 02/24/21 02/24/21 11:17 15:33 20:09 Sodium Potassium Chloride Carbon Dioxide Anion Gap BUN Creatinine Estim Creat Clear Calc Estimated GFR POC Glucose 312 H 262 H 256 H Random Glucose Calcium 02/25/21 02/25/21 05:46 07:33 Sodium 135 Potassium 4.5 Chloride 99 Carbon Dioxide 29 Anion Gap 12 BUN 25 H D Creatinine 0.74 Estim Creat Clear Calc 85.9 Estimated GFR > 60 POC Glucose 258 H Random Glucose 288 H Calcium 9.5 D Preliminary micro results at discharge 02/21/21 14:12 Blood Culture - Preliminary Blood - Venous No growth after 48 hours. 02/21/21 14:12 Blood Culture - Preliminary Blood - Venous No growth after 48 hours. Discharge Plan Discharge Patient Disposition: Home, Self-Care Discharge Diagnosis: Acute on Chronic hypoxic and hypercarbic respiratory failure Acute COPD exacerbation Tobacco use disorder Hyperkalemia Referrals: Kelli Benavides MD [Primary Care Provider] - 1 Week Discharge Medications: New prednisone 20 mg tablet 20 mg PO DAILY Qty: 30 RF: 0 lisinopril 20 mg tablet 20 mg PO DAILY Qty: 30 RF: 0 Continued tiotropium bromide [Spiriva with HandiHaler] 18 mcg capsule, w/inhalation device 1 cap inhalation DAILY Qty: 30 RF: 11 immun glob [id number] 0-50 10 gram recon soln 40 g IV Q4W Qty: 2 RF: 12 ipratropium-albuterol 0.5 mg-3 mg(2.5 mg base)/3 mL solution for nebulization 3 ml inhalation Q4H PRN (Reason: for wheezing) Qty: 540 RF: 6 sodium chloride 3 % solution for nebulization 4 ml inhalation BID Qty: 240 RF: 3 gabapentin 100 mg capsule 1 cap PO BID RF: 0 Lantus U-100 Insulin 100 unit/mL solution 45 unit subcut BEDTIME RF: 0 diltiazem HCl [Tiadylt ER] 360 mg capsule,extended release 24 hr 1 cap PO DAILY RF: 0 rosuvastatin 5 mg tablet 1 tab PO BEDTIME RF: 0 Daliresp 500 mcg tablet 1 tab PO DAILY RF: 0 lidocaine 5 % adhesive patch,medicated 1 patch topical DAILY RF: 0 insulin lispro [Humalog U-100 Insulin] 100 unit/mL solution See Protocol sliding scale dose subcut TIDAC RF: 0 Arnoldo-24 400 mg capsule,extended release 24hr 400 mg PO BID RF: 0 clonazepam 1 mg Tablet 1 mg PO BID PRN (Reason: Anxiety) RF: 0 zolpidem 10 mg Tablet 10 mg PO BEDTIME PRN (Reason: Insomnia) RF: 0 nicotine 7 mg/24 hr Patch 24 Hour 7 mg transdermal DAILY Qty: 30 RF: 0 montelukast 10 mg tablet 10 mg PO BEDTIME RF: 0 albuterol sulfate [ProAir HFA] 90 mcg/actuation HFA aerosol inhaler 2 puff inhalation Q4H PRN (Reason: Shortness Of Breath Or Wheezing) RF: 0 loratadine [Claritin] 10 mg tablet 10 mg PO DAILY RF: 0 metformin 500 mg tablet 500 mg PO BID RF: 0 methadone 10 mg tablet 49 mg PO DAILY RF: 0 sennosides [Natural Senna Laxative] 8.6 mg tablet 8.6 mg PO BEDTIME PRN (Reason: constipation) Qty: 30 RF: 3 Brovana 15 mcg/2 mL solution for nebulization 2 ml inhalation Q12H 30 Days Qty: 120 RF: 11 budesonide 0.5 mg/2 mL suspension for nebulization 0.5 mg inhalation BID Qty: 120 RF: 11 nicotine (polacrilex) 2 mg gum 2 mg buccal Q3H PRN (Reason: nicotine cravings) 30 Days Qty: 100 RF: 3 chlorhexidine gluconate 0.12 % mouthwash 15 ml buccal BID 14 Days Qty: 473 RF: 1 Discontinued sulfamethoxazole-trimethoprim [Bactrim DS] 800-160 mg tablet 1 tab PO Q12H 21 Days Qty: 42 RF: 0 prednisone 5 mg tablet 10 mg PO DAILY RF: 0 lisinopril 40 mg tablet 40 mg PO DAILY RF: 0 Discharge Orders: Discharge Order (Routine); Ordered 02/25/21 Ordered By: Vel Ramires Diet: diabetic diet Activity on Discharge: As tolerated Stand Alone Forms: Patient Portal Discharge page Care Plan Goals: Continue 2 L of oxygen and BiPAP at night take prednisone 40 mg daily for 3 days then 20 mg daily for 3 days then 10 mg daily for 3 days and follow-up with primary care physician Take all inhalers as before Ambulate as tolerated, completely abstain from smoking Lisinopril dose reduced to 20 mg due to low blood pressure Health Concerns: Take all other medications as before Plan of Treatment: Follow-up with primary care physician in 1-2 weeks follow-up with pulmonology in next 1-2 weeks Assessment: As above
--- NOTE | 2021-02-25 10:02 | MHC.CM.PN ---
order for home. [facility] notified (was on service w/them prior to hospitalization) and request sent to resume services- they had previously accepted patient back.
--- NOTE | 2021-02-25 10:05 | MHC.CM.PN ---
Noticed allscripts sticky to also call Maggie from [facility] to notify when patient is D/C. Called Maggie and gave a verbal notification via phone regarding today's D/C back to home. Maggie accepted verbally as well.
[2021-02-25 11:46] VITALS: PULSE 110; RESP 20; O2SAT 93
[2021-02-25 13:04] LABS: Glucose, Whole Blood 278 mg/dL (60-115)
== END 2021-02-25 14:45 | disposition home or self-care (01) | DRG 140 ==
LOC: HO.ED 17:10 → HO.EDOVER 18:07 → HO.IMC 23:59
PROVIDERS: Admitting Provider Nurse Practitioner Acute Care; Emergency Provider Emergency Medicine; PCP Family Medicine; Visit Provider Hospitalist
DX: J44.1 Chronic obstructive pulmonary disease with (acute) exacerbation (principal); J96.21 Acute and chronic respiratory failure with hypoxia; D80.1 Nonfamilial hypogammaglobulinemia; E87.4 Mixed disorder of acid-base balance; J45.901 Unspecified asthma with (acute) exacerbation; Z99.81 Dependence on supplemental oxygen; J96.22 Acute and chronic respiratory failure with hypercapnia; R00.0 Tachycardia, unspecified; E87.5 Hyperkalemia; E78.5 Hyperlipidemia, unspecified; F17.210 Nicotine dependence, cigarettes, uncomplicated; Z71.6 Tobacco abuse counseling; Z20.822 Contact with and (suspected) exposure to COVID-19; F11.20 Opioid dependence, uncomplicated; Z79.4 Long term (current) use of insulin; Z79.899 Other long term (current) drug therapy
CPT/HCPCS: 36415; 71045; 80048; 80076; 82803; 82947; 83605; 83690; 83735; 83880; 84484; 85025; 87040; 87635; 93005; 94640; 94644; 94660; 96365; 96375; 99285; 99291; J0456; J0696; J2920; J2930

== ENCOUNTER → 2021-03-02 10:05 | Outpatient (BNVA) | payer MEDICAID, SELFPAY | PROVIDERS: PCP Family Medicine; Visit Provider Hospitalist | DX: J44.1 Chronic obstructive pulmonary disease with (acute) exacerbation (principal); J45.901 Unspecified asthma with (acute) exacerbation; J96.11 Chronic respiratory failure with hypoxia; J96.12 Chronic respiratory failure with hypercapnia; D80.1 Nonfamilial hypogammaglobulinemia; Z72.0 Tobacco use | CPT/HCPCS: 99212 ==

== ENCOUNTER 2021-03-07 10:34 | Outpatient (REF) | payer MEDICAID, SELFPAY | END 2021-03-07 10:35 | disposition home or self-care (01) | LOC: HO.MDS 10:34 | PROVIDERS: PCP Family Medicine; Visit Provider Hospitalist | DX: D80.1 Nonfamilial hypogammaglobulinemia (principal) | CPT/HCPCS: 96365; 96366; J1569 ==

== ENCOUNTER → 2021-04-09 10:51 | Outpatient (BNVA) | payer MEDICAID, SELFPAY | PROVIDERS: PCP Family Medicine; Visit Provider Hospitalist | DX: J44.1 Chronic obstructive pulmonary disease with (acute) exacerbation (principal); J45.901 Unspecified asthma with (acute) exacerbation; J96.11 Chronic respiratory failure with hypoxia; J96.12 Chronic respiratory failure with hypercapnia; D80.1 Nonfamilial hypogammaglobulinemia; Z72.0 Tobacco use | CPT/HCPCS: 94618; 99212 ==

== ENCOUNTER 2021-04-20 20:52 | Emergency (ER) | payer MEDICAID, SELFPAY ==
--- NOTE | ~2021-04-20 | XR_ITS ---
EXAMINATION: XR CHEST CLINICAL INFORMATION: Shortness of breath, cough, rule out pneumonia. COMPARISON: Chest radiograph dated from 02/21/2021. TECHNIQUE: AP view of the chest was obtained. FINDINGS: Stable appearance of the cardiomediastinal silhouette. Increased interstitial markings and likely multifocal patchy airspace opacities. No pleural effusions or pneumothorax. Multiple bilateral healed rib fractures. XR/XR chest 1V IMPRESSION: Increased interstitial markings with some questionable superimposed multifocal hazy airspace opacities concerning for an atypical infectious or inflammatory process.
[2021-04-20 20:58] VITALS: BP 142/84; BP 148/80; PULSE 106; PULSE 110; RESP 20; TEMP 36.9; O2SAT 94; O2SAT 95; BMI 40.2
--- NOTE | 2021-04-20 21:08 | ED_ITS ---
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 The patient has a history of COPD and wears 2-3 L of oxygen continuously pain. She states that over the past 2 days she has had fatigue and headache. She states that the headache has come on gradually. The headache is gotten worse. Headache is located on the left side of her head and is a pressure/throbbing sensation which is 7/10 at its worst. She has associated nausea but no vomiting or diarrhea. She denied myalgias arthralgias. She states that her fatigue is gotten significantly worse over the past 24 hours. The patient has a cough which she states is worse in the morning and is occasionally productive of white phlegm. She denied chest pain. She states that she has chronic shortness of breath in uses her nebulizer machine 4 to 6 times a day this is unchanged. She has had increased dyspnea on exertion. She has not received any COVID-19 vaccine. MD elicited complaint: headache Onset (ago): day(s) (2) Onset description: gradually Location: left, frontal, temporal and occipital Severity: severe Pain scale (0-10): 7 Quality & Timing: throbbing and pressure Exacerbating factors: none Relieving factors: nothing Associated symptoms: nausea and other (Fatigue, slight cough occasionally productive, shortness of breath) Treatments prior to arrival: none Related Data Home Medications Medication Instructions Recorded Confirmed albuterol sulfate 90 2 puff INHALATION Q4H PRN 12/30/19 02/21/21 mcg/actuation aerosol inhaler (ProAir HFA) loratadine 10 mg tablet 10 mg PO DAILY 12/30/19 02/21/21 (Claritin) metformin 500 mg tablet 500 mg PO BID 12/30/19 02/21/21 methadone 10 mg tablet 49 mg PO DAILY 12/30/19 02/21/21 montelukast 10 mg tablet 10 mg PO BEDTIME 12/30/19 02/21/21 gabapentin 100 mg capsule 1 cap PO BID 10/14/20 02/21/21 insulin glargine 100 unit/mL 45 unit SUBCUT BEDTIME 10/14/20 02/21/21 subcutaneous solution (Lantus U-100 Insulin) diltiazem HCl 360 mg 1 cap PO DAILY 11/16/20 02/21/21 capsule,24 hr,extended release (Tiadylt ER) roflumilast 500 mcg tablet 1 tab PO DAILY 11/16/20 02/21/21 (Daliresp) rosuvastatin 5 mg tablet 1 tab PO BEDTIME 11/16/20 02/21/21 insulin lispro 100 unit/mL See Protocol SUBCUT TIDAC 12/14/20 02/21/21 subcutaneous solution (Humalog U-100 Insulin) lidocaine 5 % topical patch 1 patch TOPICAL DAILY 12/14/20 02/21/21 clonazepam 1 mg tablet 1 mg PO BID PRN 02/10/21 02/21/21 zolpidem 10 mg tablet 10 mg PO BEDTIME PRN 02/10/21 02/21/21 Previous Rx's Medication Instructions Recorded tiotropium bromide 18 mcg capsule 1 cap INHALATION DAILY #30 inh 05/11/20 with inhalation device (Spiriva with HandiHaler) immune glob,gamma(IgG) 10 40 g IV Q4W #2 ea 06/16/20 [id number] 0 to 50 mcg/mL IV solution arformoterol 15 mcg/2 mL solution 2 ml INHALATION Q12H 30 Days #120 09/20/20 for nebulization (Brovana) ml budesonide 0.5 mg/2 mL suspension 0.5 mg (2 mL) INHALATION BID #120 09/20/20 for nebulization ml ipratropium 0.5 mg-albuterol 3 mg 3 ml INHALATION Q4H PRN #540 ml 10/30/20 (2.5 mg base)/3 mL nebulization soln nicotine (polacrilex) 2 mg gum 2 mg BUCCAL Q3H PRN 30 Days #100 11/23/20 ea sennosides 8.6 mg tablet (Natural 8.6 mg PO BEDTIME PRN #30 tab 11/24/20 Senna Laxative) nicotine 7 mg/24 hr daily 7 mg TRANSDERMAL DAILY #30 ea 12/17/20 transdermal patch chlorhexidine gluconate 0.12 % 15 ml BUCCAL BID 14 Days #473 ml 12/18/20 mouthwash sodium chloride 3 % for 4 ml INHALATION BID #240 ml 01/22/21 nebulization lisinopril 20 mg tablet 20 mg PO DAILY #30 tab 02/25/21 sulfamethoxazole 800 1 tab PO Q12H 10 Days #20 tab 03/29/21 mg-trimethoprim 160 mg tablet (Bactrim DS) theophylline 400 mg 800 mg PO DAILY #60 cap 04/18/21 capsule,extended release 24 hr (Arnoldo-24) doxycycline hyclate 100 mg tablet 100 mg PO Q12H 10 Days #20 tab 04/20/21 furosemide 20 mg tablet (Lasix) 20 mg PO DAILY 3 Days #3 tab 04/20/21 prednisone 20 mg tablet 60 mg PO DAILY 5 Days #15 tab 04/20/21 Allergies Allergy/AdvReac Type Severity Reaction Status Date / Time No Known Allergies Allergy Verified 04/09/21 10:56 [No Known Allergies*] Review of Systems 2 Verdana 4l Review of Systems: Yes all other systems are reviewed and Verdana 4d are negative [facility] Past Medical History [facility] Narrative: Past medical history: Patient smokes 1-2 cigarettes per day times many years. She denies alcohol use. She is a former injection heroin user but states she has not used in 22 years. She lives with her daughter. Medical History Asthma-COPD overlap syndrome Chronic respiratory failure Chronic respiratory failure COPD (chronic obstructive pulmonary disease) Diabetes mellitus Essential hypertension Hyperlipidemia, unspecified Hypogammaglobulinemia Poor dentition Tobacco abuse Type 2 diabetes mellitus with unspecified complications Surgical History H/O tubal ligation Family History Family History Father Diabetes Other Asthma Social History Social History Household Members: Children Household Members Other:: 3 Housing: Apartment Do you presently have visiting nurse or other home services: Yes (visiting nurses daily) Alcohol intake: unknown Patient Tobacco Use Status: Current someday Tobacco user Tobacco use type: Cigarette Cigarettes Per Day: 1 Years Smoked: 35 e-Cigarette/Vaping Use: Currently Using Second Hand Smoke Exposure: No Substance Use Type: Former Substance User Advance Directives: Yes Advance Directives on File: Yes Advance Directives Date on File: 11/16/20 Patient : No service: No Current occupational status: unemployed and disabled Physical Exam Verdana 4l Vital Signs: Verdana 4d Verdana 4d Vital Signs: Verdana 4d Verdana 4Bd Last Vital Signs Verdana 4d Strip Tank Tender New 4d Strip Tank Tender New 4d Temp 98.4 F 04/20/21 21:57 Strip Tank Tender New 4d Pulse 95 04/20/21 22:01 Strip Tank Tender New 4d Resp 21 H 04/20/21 22:01 BP 114/90 H 04/20/21 21:57 Pulse Ox 99 04/20/21 21:57 Oxygen Flow Rate 2 04/20/21 20:58 BMI result Body Mass Index 40.2 Const: Other: Awake, alert, female patient, BMI at 40.2, very pleasant and cooperative, answers all questions appropriately, does not appear to be in distress HENMT: Head: Yes normal to inspection, Yes normocephalic and Yes atraumatic Ears: external ears normal General nose exam: Normal external nose present Face and sinus: Yes normal facial exam Mouth: Normal oral and palatal mucosa present Throat: Yes posterior oropharynx normal Eyes: General: appearance normal, both eyes and all related structures Pupils: Equal, round and reactive pupils present Neck: Neck: Yes normal visual inspection, Yes no lymphadenopathy, Yes trachea midline and Yes supple Chest: Chest palpation & inspection: normal inspection of the chest and tenderness sternum (Moderate) Resp: Effort & Inspection: normal respiratory effort and able to speak in complete sentences Auscultation: no rales, rhonchi (Diffuse) and wheezes (Diffuse) Cardio: Rate: regular rate Rhythm: regular rhythm Heart sounds: S1 normal heart sound present, S2 normal heart sound present and no murmurs GI: Inspection: Yes normal to inspection Palpation (GI): Soft to palpation, nontender and no guarding Auscultation: normal bowel sounds : General: Yes no CVA tenderness Back/Spine/Pelvis: Back: no CVA tenderness Skin: General skin exam: no rashes or lesions noted Neuro: Cranial nerves: Yes CN's II-XII intact bilaterally and Yes Equal, round and reactive pupils present Cognition (Neuro): normal cognition Motor exam (neuro): 5/5 motor strength present throughout Extrem: General: Yes normal to inspection and Yes edema (1+, bilaterally symmetric) Psych: Appearance: grossly normal Speech and movement: Normal speech and movement present Affect: normal affect Attitude: cooperative Thought process: Normal thought process present Thought content: Normal thought content present Course Course Course Narrative: 51-year-old female with a history of diabetes mellitus, hypertension, hyperlipidemia, COPD who continues to smoke and uses 2-3 L of oxygen via nasal cannula continually, she takes prednisone daily, presents emergency department for evaluation of 2 days of headache, fatigue, increased dyspnea on exertion, nausea. The patient uses her nebulizer 4 to 6 times a day and states she has not had to increase her frequency of using this medication. The patient has not been vaccinated for COVID-19. Vital signs revealed an elevated blood pressure of 148/80, elevated pulse of 106, respiratory of 20, temperature was afebrile at 98.5 and O2 saturation was 95% on 2 L. lung exam did reveal diffuse diffuse wheezing with symmetric breath sounds. She has 1+ pitting edema. Differential includes but is not limited to COVID-19 infection, COPD exacerbation, CHF, pneumonia. Laboratory evaluation and chest x-ray was ordered. Patient will also be treated with Solu-Medrol 125 mg IV and an albuterol nebulizer. 2355: Patient's laboratory evaluation [place] [address], this is chronic. Patient's bicarb was elevated at 39 again this is chronic. COVID-19 was negative. BNP was below detectable limits. Lactate was normal at 1.7. Chest x-ray is concerning for possible atypical infection. Patient did improve after the above treatment. Patient is feeling better and does want to go home. Patient will be started on doxycycline 100 mg twice a day for 10 days and a pulse dose of prednisone 60 mg once a day for 5 days and then she is to resume her usual dose of prednisone. She was given printed and verbal instructions discharged home. MDM - Headache Lab Data Result diagrams: 04/20/21 21:29 04/20/21 21:29 Labs: Lab Results 04/20/21 04/20/21 04/20/21 Range/Units 21:28 21:28 21:29 WBC 17.1 H (4.8-10.8) X10*3/uL RBC 4.16 L (4.20-5.50) X10*6/uL Hgb 12.8 (12.0-16.0) g/dl Hct 42.2 (37.0-47.0) % MCV 101.4 H (80.0-98.0) fL MCH 30.8 (27.0-33.0) pg MCHC 30.3 L (31.0-35.0) g/dl RDW 12.7 (11.0-16.0) % Plt Count 248 (160-400) X10*3/uL MPV 8.8 L (9.4-12.3) fL Immature Gran % (Auto) 0.5 H (0.0-0.4) % Neut % (Auto) 88.7 H (45-73) % Lymph % (Auto) 5.2 L (20-40) % Price % (Auto) 5.2 (2-11) % Eos % (Auto) 0.2 (0-4) % Baso % (Auto) 0.2 (0-2) % Lymph # (Auto) 0.9 L (1.2-4.9) X10*3/uL Price # (Auto) 0.9 (0.1-1.2) X10*3/uL Eos # (Auto) 0.0 (0.0-0.4) X10*3/uL Baso # (Auto) 0.0 (0.0-0.2) X10*3/uL Abs Immat Gran (auto) 0.08 H (0.00-0.03) X10*3/uL Absolute Neuts (auto) 15.2 H (2.0-8.3) x10*3/uL Absolute Nucleated RBC 0.000 (0.0-0.012) X10*3/uL Nucleated RBC % (auto) 0.0 (0.0-0.2) /100WBC Sodium (135-145) mmol/L Potassium (3.3-5.1) mmol/L Chloride (96-108) mmol/L Carbon Dioxide (22-29) mmol/L Anion Gap (12-20) BUN (9-16) mg/dL Creatinine (0.5-1.4) mg/dL Estim Creat Clear Calc Estimated GFR Random Glucose (60-115) mg/dL Lactic Acid (0.5-2.0) mmol/L Calcium (8.4-10.2) mg/dL Total Bilirubin (0.0-1.0) mg/dL AST (5-31) U/L ALT (0-31) U/L Alkaline Phosphatase (39-117) U/L Troponin I High Sens (<3.5-17.0) ng/L B-Natriuretic Peptide (<100) pg/mL Total Protein (6.5-8.0) g/dL Albumin (3.5-5.0) g/dL Lipase (8-78) U/L Urine Color YELLOW Urine Appearance CLEAR Urine pH 7.0 (5.0-8.0) Ur Specific [place] 1.010 (1.005-1.025) Urine Protein NEG (NEG-TRACE) MG/DL Urine Glucose (UA) NEG (NEG) MG/DL Urine Ketones NEG (NEG) MG/DL Urine Blood NEG (NEG) Urine Nitrite NEG (NEG) Ur Leukocyte Esterase NEG (NEG) COVID-19 (PAPO) Negative (Negative) COVID-19 Clin Com See Note 04/20/21 04/20/21 04/20/21 Range/Units 21:29 21:29 21:29 WBC (4.8-10.8) X10*3/uL RBC (4.20-5.50) X10*6/uL Hgb (12.0-16.0) g/dl Hct (37.0-47.0) % MCV (80.0-98.0) fL MCH (27.0-33.0) pg MCHC (31.0-35.0) g/dl RDW (11.0-16.0) % Plt Count (160-400) X10*3/uL MPV (9.4-12.3) fL Immature Gran % (Auto) (0.0-0.4) % Neut % (Auto) (45-73) % Lymph % (Auto) (20-40) % Price % (Auto) (2-11) % Eos % (Auto) (0-4) % Baso % (Auto) (0-2) % Lymph # (Auto) (1.2-4.9) X10*3/uL Price # (Auto) (0.1-1.2) X10*3/uL Eos # (Auto) (0.0-0.4) X10*3/uL Baso # (Auto) (0.0-0.2) X10*3/uL Abs Immat Gran (auto) (0.00-0.03) X10*3/uL Absolute Neuts (auto) (2.0-8.3) x10*3/uL Absolute Nucleated RBC (0.0-0.012) X10*3/uL Nucleated RBC % (auto) (0.0-0.2) /100WBC Sodium 140 (135-145) mmol/L Potassium 4.7 (3.3-5.1) mmol/L Chloride 92 L (96-108) mmol/L Carbon Dioxide 39 H (22-29) mmol/L Anion Gap 14 (12-20) BUN 10 D (9-16) mg/dL Creatinine 0.64 (0.5-1.4) mg/dL Estim Creat Clear Calc 110.5 Estimated GFR > 60 Random Glucose 126 H (60-115) mg/dL Lactic Acid 1.7 (0.5-2.0) mmol/L Calcium 9.7 (8.4-10.2) mg/dL Total Bilirubin 0.4 (0.0-1.0) mg/dL AST 26 (5-31) U/L ALT 33 H (0-31) U/L Alkaline Phosphatase 73 D (39-117) U/L Troponin I High Sens 6.1 (<3.5-17.0) ng/L B-Natriuretic Peptide (<100) pg/mL Total Protein 6.6 (6.5-8.0) g/dL Albumin 3.8 (3.5-5.0) g/dL Lipase 11 (8-78) U/L Urine Color Urine Appearance Urine pH (5.0-8.0) Ur Specific [place] (1.005-1.025) Urine Protein (NEG-TRACE) MG/DL Urine Glucose (UA) (NEG) MG/DL Urine Ketones (NEG) MG/DL Urine Blood (NEG) Urine Nitrite (NEG) Ur Leukocyte Esterase (NEG) COVID-19 (PAPO) (Negative) COVID-19 Clin Com 04/20/21 Range/Units 21:30 WBC (4.8-10.8) X10*3/uL RBC (4.20-5.50) X10*6/uL Hgb (12.0-16.0) g/dl Hct (37.0-47.0) % MCV (80.0-98.0) fL MCH (27.0-33.0) pg MCHC (31.0-35.0) g/dl RDW (11.0-16.0) % Plt Count (160-400) X10*3/uL MPV (9.4-12.3) fL Immature Gran % (Auto) (0.0-0.4) % Neut % (Auto) (45-73) % Lymph % (Auto) (20-40) % Price % (Auto) (2-11) % Eos % (Auto) (0-4) % Baso % (Auto) (0-2) % Lymph # (Auto) (1.2-4.9) X10*3/uL Price # (Auto) (0.1-1.2) X10*3/uL Eos # (Auto) (0.0-0.4) X10*3/uL Baso # (Auto) (0.0-0.2) X10*3/uL Abs Immat Gran (auto) (0.00-0.03) X10*3/uL Absolute Neuts (auto) (2.0-8.3) x10*3/uL Absolute Nucleated RBC (0.0-0.012) X10*3/uL Nucleated RBC % (auto) (0.0-0.2) /100WBC Sodium (135-145) mmol/L Potassium (3.3-5.1) mmol/L Chloride (96-108) mmol/L Carbon Dioxide (22-29) mmol/L Anion Gap (12-20) BUN (9-16) mg/dL Creatinine (0.5-1.4) mg/dL Estim Creat Clear Calc Estimated GFR Random Glucose (60-115) mg/dL Lactic Acid (0.5-2.0) mmol/L Calcium (8.4-10.2) mg/dL Total Bilirubin (0.0-1.0) mg/dL AST (5-31) U/L ALT (0-31) U/L Alkaline Phosphatase (39-117) U/L Troponin I High Sens (<3.5-17.0) ng/L B-Natriuretic Peptide < 10 (<100) pg/mL Total Protein (6.5-8.0) g/dL Albumin (3.5-5.0) g/dL Lipase (8-78) U/L Urine Color Urine Appearance Urine pH (5.0-8.0) Ur Specific [place] (1.005-1.025) Urine Protein (NEG-TRACE) MG/DL Urine Glucose (UA) (NEG) MG/DL Urine Ketones (NEG) MG/DL Urine Blood (NEG) Urine Nitrite (NEG) Ur Leukocyte Esterase (NEG) COVID-19 (PAPO) (Negative) COVID-19 Clin Com ECG Data Attestation: I personally reviewed and interpreted this ECG as follows: Interpretation: 2150: Normal sinus rhythm with a rate of 88, normal [place] interval QRS duration QTC interval, no ST segment elevation, no ST segment depression, no PACs, no PVCs, this is a normal EKG Discharge Plan Discharge Clinical Impression: COPD exacerbation, Atypical pneumonia Patient Disposition: Home, Self-Care Instructions: COPD (Chronic Obstructive Pulmonary Disease) (ED), Pneumonia (ED) Additional Instructions: Your laboratory evaluation was normal. Your chest x-ray was concerning for possible pneumonia. Your treated in the emergency department with an albuterol nebulizer and Solu- Medrol (steroids) 125 mg IV. You also received doxycycline (antibiotic) 100 mg orally. I am starting you on a pulse dose of prednisone 60 mg once a day for 5 days, then after this take your usual dose of prednisone. I am also starting you on doxycycline (antibiotic) 100 mg every 12 hours for 10 days for possible pneumonia. Follow-up with your doctor in 2 days. Please return to the emergency department if your symptoms get worse or if you develop any symptoms that are concerning to you. Prescriptions: New prednisone 20 mg tablet 60 mg PO DAILY 5 Days Qty: 15 0RF doxycycline hyclate 100 mg tablet 100 mg PO Q12H 10 Days Qty: 20 0RF No Action tiotropium bromide [Spiriva with HandiHaler] 18 mcg capsule, w/inhalation device 1 cap inhalation DAILY Qty: 30 11RF immun glob [id number] 0-50 10 gram recon soln 40 g IV Q4W Qty: 2 12RF ipratropium-albuterol 0.5 mg-3 mg(2.5 mg base)/3 mL solution for nebulization 3 ml inhalation Q4H PRN (Reason: for wheezing) Qty: 540 6RF sodium chloride 3 % solution for nebulization 4 ml inhalation BID Qty: 240 3RF sulfamethoxazole-trimethoprim [Bactrim DS] 800-160 mg tablet 1 tab PO Q12H 10 Days Qty: 20 0RF Arnoldo-24 400 mg capsule,extended release 24hr 800 mg PO DAILY Qty: 60 3RF furosemide [Lasix] 20 mg tablet 20 mg PO DAILY 3 Days Qty: 3 0RF gabapentin 100 mg capsule 1 cap PO BID 0RF Lantus U-100 Insulin 100 unit/mL solution 45 unit subcut BEDTIME 0RF diltiazem HCl [Tiadylt ER] 360 mg capsule,extended release 24 hr 1 cap PO DAILY 0RF rosuvastatin 5 mg tablet 1 tab PO BEDTIME 0RF Daliresp 500 mcg tablet 1 tab PO DAILY 0RF lidocaine 5 % adhesive patch,medicated 1 patch topical DAILY 0RF insulin lispro [Humalog U-100 Insulin] 100 unit/mL solution See Protocol sliding scale dose subcut TIDAC 0RF Protocol: Insulin Correction Scale Less than or equal to 110 ---- Give (units): 0 111 to 150 Give (units): 0 151 to 200 Give (units): 2 201 to 250 Give (units): 4 251 to 300 Give (units): 6 301 to 350 Give (units): 8 Greater than 350 Give (units): 10 Call MD if Blood Glucose > : 350 clonazepam 1 mg Tablet 1 mg PO BID PRN (Reason: Anxiety) 0RF zolpidem 10 mg Tablet 10 mg PO BEDTIME PRN (Reason: Insomnia) 0RF lisinopril 20 mg tablet 20 mg PO DAILY Qty: 30 0RF nicotine 7 mg/24 hr Patch 24 Hour 7 mg transdermal DAILY Qty: 30 0RF montelukast 10 mg tablet 10 mg PO BEDTIME 0RF albuterol sulfate [ProAir HFA] 90 mcg/actuation HFA aerosol inhaler 2 puff inhalation Q4H PRN (Reason: Shortness Of Breath Or Wheezing) 0RF loratadine [Claritin] 10 mg tablet 10 mg PO DAILY 0RF metformin 500 mg tablet 500 mg PO BID 0RF methadone 10 mg tablet 49 mg PO DAILY 0RF Label Comments: PT PROVIDED DIFFERENT DOSE THAN IS LISTED IN THE SYSTEM, AWAITING DOSAGE FROM PRESCRIBING FACILITY sennosides [Natural Senna Laxative] 8.6 mg tablet 8.6 mg PO BEDTIME PRN (Reason: constipation) Qty: 30 3RF Brovana 15 mcg/2 mL solution for nebulization 2 ml inhalation Q12H 30 Days Qty: 120 11RF budesonide 0.5 mg/2 mL suspension for nebulization 0.5 mg inhalation BID Qty: 120 11RF nicotine (polacrilex) 2 mg gum 2 mg buccal Q3H PRN (Reason: nicotine cravings) 30 Days Qty: 100 3RF chlorhexidine gluconate 0.12 % mouthwash 15 ml buccal BID 14 Days Qty: 473 1RF
--- NOTE | 2021-04-20 21:09 | ECG_ITS ---
Test Reason : DYSPENA Blood Pressure : / mmHG Vent. Rate : 092 BPM Atrial Rate : 092 BPM P-R Int : 132 ms QRS Dur : 090 ms QT Int : 366 ms P-R-T Axes : 061 042 055 degrees QTc Int : 452 ms Artifact in tracing Normal sinus rhythm Likely normal EKG When compared with ECG of 21-FEB-2021 15:34, No significant change was found Referred By: Brenton Harry Electronically Signed By:RONALD SCHAFER
[2021-04-20 21:38] LABS: MANUAL DIFF FLAG NO
[2021-04-20 21:39] LABS: Basophils Percent Auto 0.2 % (0-2); Eosinophils Percent Auto 0.2 % (0-4); Hematocrit 42.2 % (37.0-47.0); Hemoglobin 12.8 g/dl (12.0-16.0); Imm Gran Abs Auto 0.08 X10*3/uL (0.00-0.03); Imm Gran Pct Auto 0.5 % (0.0-0.4); Lymphocytes Absolute Auto 0.9 X10*3/uL (1.2-4.9); Lymphocytes Percent Auto 5.2 % (20-40); Mean Corpuscular HGB Conc 30.3 g/dl (31.0-35.0); Mean Corpuscular Hemoglobin 30.8 pg (27.0-33.0); Mean Corpuscular Volume 101.4 fL (80.0-98.0); Mean Platelet Volume 8.8 fL (9.4-12.3); Monocytes Absolute Auto 0.9 X10*3/uL (0.1-1.2); Monocytes Percent Auto 5.2 % (2-11); Neutrophils Absolute Auto 15.2 x10*3/uL (2.0-8.3); Neutrophils Percent Auto 88.7 % (45-73); Platelet Count 248 X10*3/uL (160-400); Red Blood Count 4.16 X10*6/uL (4.20-5.50); Red Cell Distribution Width 12.7 % (11.0-16.0); White Blood Count 17.1 X10*3/uL (4.8-10.8)
[2021-04-20 21:41] LABS: Appearance Urine CLEAR; Color Urine YELLOW; Glucose Urine UA NEG (NEG); Leukocyte Esterase Urine NEG (NEG); Nitrite Urine NEG (NEG); Urine Blood NEG (NEG); Urine Ketones NEG (NEG); Urine Protein NEG (NEG-TRACE)
[2021-04-20] MEDS: methylPREDNISolone Sod Succ 125 MG/2 ML VIAL IVPUSH (21:44)
[2021-04-20 21:52] LABS: Lactic Acid 1.7 mmol/L (0.5-2.0)
[2021-04-20 21:55] VITALS: BP 114/90; PULSE 96; RESP 18; TEMP 37.1; O2SAT 95
[2021-04-20 21:55] LABS: COVID-19 Test Negative (Negative)
[2021-04-20 21:57] VITALS: BP 114/90; PULSE 92; RESP 16; TEMP 36.9; O2SAT 99
[2021-04-20 22:01] VITALS: PULSE 95; RESP 21; O2SAT 99
[2021-04-20 22:01] LABS: Alanine Aminotransferase 33 U/L (0-31); Albumin Level 3.8 g/dL (3.5-5.0); Alkaline Phosphatase 73 U/L (39-117); Anion Gap 14 (12-20); Aspartate Amino Transferase 26 U/L (5-31); Bilirubin Total 0.4 mg/dL (0.0-1.0); Blood Urea Nitrogen 10 mg/dL (9-16); Calcium 9.7 mg/dL (8.4-10.2); Carbon Dioxide 39 mmol/L (22-29); Chloride 92 mmol/L (96-108); Creatinine Clr Calc Pharmacy 110.5; Estimated Glomerular Filt Rate > 60; Glucose Random 126 mg/dL (60-115); Lipase 11 U/L (8-78); Potassium 4.7 mmol/L (3.3-5.1); Sodium 140 mmol/L (135-145); Total Protein 6.6 g/dL (6.5-8.0); Troponin-I High Sensitivity 6.1 ng/L (<3.5-17.0)
[2021-04-20 22:01] LABS: B Type Natriuretic Peptide < 10 pg/mL (<100)
[2021-04-20] MEDS: Albuterol Sulfate (0.083%) 2.5 MG/3 ML VIAL.NEB 5 MG INHALE (22:01)
[2021-04-21 00:31] VITALS: BP 151/85; PULSE 87; RESP 16; TEMP 37; O2SAT 97
[2021-04-21 01:46] LABS: Glucose, Whole Blood 127 mg/dL (60-115)
[2021-04-21 02:09] VITALS: BP 149/89; PULSE 95; RESP 20; O2SAT 95
--- NOTE | 2021-04-21 02:26 | PC.NURSE ---
geographic information systems engineer arrived to transport PT home. This nurse was preparing the PT for discharge when she started to report increased wheezing and SOB. PT on pulse ox with sat decreasing to 84% while transferring to bed side commode. Decision made to administer another breathing treatment prior to discharging to PT home. PT to be reassessed following breathing treatment.
[2021-04-21] MEDS: Albuterol Sulfate (0.083%) 2.5 MG/3 ML VIAL.NEB 5 MG INHALE (02:30)
[2021-04-21 02:31] VITALS: PULSE 100; RESP 20; O2SAT 99
--- NOTE | 2021-04-21 03:01 | PC.NURSE ---
PT completed breathing treatment. PT no longer exhibits wheezing and is not reporting any SOB. Plan is still to discharge.
== END 2021-04-21 03:23 | disposition home or self-care (01) ==
PROVIDERS: Emergency Provider Emergency Medicine Emergency Medical Services
DX: J44.1 Chronic obstructive pulmonary disease with (acute) exacerbation (principal); J18.9 Pneumonia, unspecified organism; R06.02 Shortness of breath; R60.0 Localized edema; Z20.822 Contact with and (suspected) exposure to COVID-19; E11.9 Type 2 diabetes mellitus without complications; E78.5 Hyperlipidemia, unspecified; I10 Essential (primary) hypertension; F17.200 Nicotine dependence, unspecified, uncomplicated; Z99.81 Dependence on supplemental oxygen; Z79.52 Long term (current) use of systemic steroids
CPT/HCPCS: 36415; 71045; 80053; 81003; 82947; 83605; 83690; 83880; 84484; 85025; 87040; 87635; 93005; 94640; 99284; J2930

== ENCOUNTER → 2021-04-27 09:59 | Outpatient (BNVA) | payer MEDICAID, SELFPAY | PROVIDERS: PCP Family Medicine; Visit Provider Hospitalist | DX: J44.1 Chronic obstructive pulmonary disease with (acute) exacerbation (principal); J45.901 Unspecified asthma with (acute) exacerbation; J96.11 Chronic respiratory failure with hypoxia; J96.12 Chronic respiratory failure with hypercapnia; D80.1 Nonfamilial hypogammaglobulinemia; Z72.0 Tobacco use | CPT/HCPCS: 94618; 99212 ==

== ENCOUNTER 2021-04-30 11:00 | Outpatient (REF) | payer MEDICAID, SELFPAY | END 2021-04-30 11:01 | disposition home or self-care (01) | LOC: HO.MDS 11:00 | PROVIDERS: Visit Provider Hospitalist | DX: D80.1 Nonfamilial hypogammaglobulinemia (principal) | CPT/HCPCS: 96365; 96366; J1569 ==

== ENCOUNTER 2021-05-14 09:39 | Outpatient (REF) | payer MEDICAID, SELFPAY ==
[2021-05-14 10:59] LABS: Basophils Percent Auto 0.2 % (0-2); Eosinophils Percent Auto 0.1 % (0-4); Hematocrit 42.5 % (37.0-47.0); Hemoglobin 12.9 g/dl (12.0-16.0); Imm Gran Abs Auto 0.11 X10*3/uL (0.00-0.03); Imm Gran Pct Auto 0.6 % (0.0-0.4); Lymphocytes Absolute Auto 0.6 X10*3/uL (1.2-4.9); Lymphocytes Percent Auto 3.2 % (20-40); MANUAL DIFF FLAG SCAN; Mean Corpuscular HGB Conc 30.4 g/dl (31.0-35.0); Mean Corpuscular Hemoglobin 30.4 pg (27.0-33.0); Mean Corpuscular Volume 100.2 fL (80.0-98.0); Mean Platelet Volume 9.2 fL (9.4-12.3); Monocytes Absolute Auto 0.6 X10*3/uL (0.1-1.2); Monocytes Percent Auto 3.1 % (2-11); Neutrophils Absolute Auto 16.3 x10*3/uL (2.0-8.3); Neutrophils Percent Auto 92.8 % (45-73); Platelet Count 267 X10*3/uL (160-400); Red Blood Count 4.24 X10*6/uL (4.20-5.50); Red Cell Distribution Width 12.8 % (11.0-16.0); SCAN SMEAR FLAG 1; White Blood Count 17.6 X10*3/uL (4.8-10.8)
[2021-05-14 11:00] LABS: Ammonia 33 umol/L (13-55)
[2021-05-14 11:46] LABS: Alanine Aminotransferase 33 U/L (0-31); Albumin Level 3.9 g/dL (3.5-5.0); Alkaline Phosphatase 68 U/L (39-117); Aspartate Amino Transferase 24 U/L (5-31); Bilirubin Direct 0.2 mg/dL (0.0-0.5); Bilirubin Total 0.3 mg/dL (0.0-1.0); Blood Urea Nitrogen 10 mg/dL (9-16); Calcium 9.6 mg/dL (8.4-10.2); Estimated Glomerular Filt Rate > 60; Glucose Random 87 mg/dL (60-115); Total Protein 6.7 g/dL (6.5-8.0)
[2021-05-14 11:47] LABS: Erythrocyte Sedimentation Rate 32 MM/HR (0-20)
[2021-05-14 11:55] LABS: SARS COV2 IgG Negative (Negative)
[2021-05-14 12:00] LABS: Anion Gap 11 (12-20); Carbon Dioxide 41 mmol/L (22-29); Chloride 95 mmol/L (96-108); Potassium 3.9 mmol/L (3.3-5.1); Sodium 143 mmol/L (135-145)
[2021-05-14 13:16] LABS: SLIDE REVIEW VERIFIED
[2021-05-15 07:15] LABS: Theophylline 5.8
== END 2021-05-14 09:40 | disposition home or self-care (01) ==
LOC: HO.LAB 09:39
PROVIDERS: PCP Family Medicine; Visit Provider Hospitalist
DX: J44.9 Chronic obstructive pulmonary disease, unspecified (principal); R06.02 Shortness of breath; R10.9 Unspecified abdominal pain; M79.89 Other specified soft tissue disorders; Z20.822 Contact with and (suspected) exposure to COVID-19
CPT/HCPCS: 36415; 80048; 80076; 80198; 82140; 85025; 85652; 86769; 99212

== ENCOUNTER 2021-05-17 00:39 | Emergency (ER) | payer MEDICAID, SELFPAY ==
[2021-05-17 00:42] VITALS: BP 153/82; BP 157/100; PULSE 94; PULSE 98; RESP 20; TEMP 37.4; O2SAT 93; O2SAT 98; BMI 39.2
--- NOTE | 2021-05-17 00:53 | ED.ABDPAIN ---
HPI - Abdominal Pain General Chief Complaint: Abdominal Pain Stated Complaint: abd pain,nausea Time Seen by Provider: 05/17/21 00:52 Source: patient Mode of arrival: ambulatory History of Present Illness HPI narrative: Patient having epigastric upper abdominal pain all day along with nausea and vomiting unable to hold anything down no diarrhea patient has history of sleep apnea on 2 L oxygen all the time with CPAP in the night no fever no chills Related Data Home Medications Medication Instructions Recorded Confirmed albuterol sulfate 90 mcg/actuation 2 puff INHALATION Q4H PRN 12/30/19 02/21/21 aerosol inhaler (ProAir HFA) loratadine 10 mg tablet (Claritin) 10 mg PO DAILY 12/30/19 02/21/21 metformin 500 mg tablet 500 mg PO BID 12/30/19 02/21/21 methadone 10 mg tablet 49 mg PO DAILY 12/30/19 02/21/21 montelukast 10 mg tablet 10 mg PO BEDTIME 12/30/19 02/21/21 gabapentin 100 mg capsule 1 cap PO BID 10/14/20 02/21/21 insulin glargine 100 unit/mL 45 unit SUBCUT BEDTIME 10/14/20 02/21/21 subcutaneous solution (Lantus U-100 Insulin) diltiazem HCl 360 mg capsule,24 1 cap PO DAILY 11/16/20 02/21/21 hr,extended release (Tiadylt ER) roflumilast 500 mcg tablet 1 tab PO DAILY 11/16/20 02/21/21 (Daliresp) rosuvastatin 5 mg tablet 1 tab PO BEDTIME 11/16/20 02/21/21 insulin lispro 100 unit/mL See Protocol SUBCUT TIDAC 12/14/20 02/21/21 subcutaneous solution (Humalog U-100 Insulin) lidocaine 5 % topical patch 1 patch TOPICAL DAILY 12/14/20 02/21/21 clonazepam 1 mg tablet 1 mg PO BID PRN 02/10/21 02/21/21 zolpidem 10 mg tablet 10 mg PO BEDTIME PRN 02/10/21 02/21/21 Previous Rx's Medication Instructions Recorded tiotropium bromide 18 mcg capsule 1 cap INHALATION DAILY #30 inh 05/11/20 with inhalation device (Spiriva with HandiHaler) immune glob,gamma(IgG) 10 40 g IV Q4W #2 ea 06/16/20 zdij-sjn-vnku-IgA 0 to 50 mcg/mL IV solution arformoterol 15 mcg/2 mL solution 2 ml INHALATION Q12H 30 Days #120 09/20/20 for nebulization (Brovana) ml budesonide 0.5 mg/2 mL suspension 0.5 mg (2 mL) INHALATION BID #120 09/20/20 for nebulization ml ipratropium 0.5 mg-albuterol 3 mg 3 ml INHALATION Q4H PRN #540 ml 10/30/20 (2.5 mg base)/3 mL nebulization soln nicotine (polacrilex) 2 mg gum 2 mg BUCCAL Q3H PRN 30 Days #100 ea 11/23/20 sennosides 8.6 mg tablet (Natural 8.6 mg PO BEDTIME PRN #30 tab 11/24/20 Senna Laxative) nicotine 7 mg/24 hr daily 7 mg TRANSDERMAL DAILY #30 ea 12/17/20 transdermal patch chlorhexidine gluconate 0.12 % 15 ml BUCCAL BID 14 Days #473 ml 12/18/20 mouthwash sodium chloride 3 % for 4 ml INHALATION BID #240 ml 01/22/21 nebulization lisinopril 20 mg tablet 20 mg PO DAILY #30 tab 02/25/21 sulfamethoxazole 800 1 tab PO Q12H 10 Days #20 tab 03/29/21 mg-trimethoprim 160 mg tablet (Bactrim DS) theophylline 400 mg 800 mg PO DAILY #60 cap 04/18/21 capsule,extended release 24 hr (Arnoldo-24) doxycycline hyclate 100 mg tablet 100 mg PO Q12H 10 Days #20 tab 04/20/21 furosemide 20 mg tablet (Lasix) 20 mg PO DAILY 3 Days #3 tab 04/20/21 prednisone 20 mg tablet 60 mg PO DAILY 5 Days #15 tab 04/20/21 levofloxacin 500 mg tablet 500 mg PO DAILY 8 Days #8 tab 05/09/21 omeprazole 40 mg capsule,delayed 40 mg PO DAILY 30 Days #30 cap 05/14/21 release ondansetron 4 mg disintegrating 4 mg PO Q6-8H PRN #7 tab 05/17/21 tablet Allergies Allergy/AdvReac Type Severity Reaction Status Date / Time No Known Allergies Allergy Verified 05/14/21 09:46 [No Known Allergies*] Review of Systems Review of Systems Yes all other systems are reviewed and are negative FOR[facility]LY [facility] Past Medical History Medical History Abdominal pain Asthma-COPD overlap syndrome Chronic respiratory failure Chronic respiratory failure COPD (chronic obstructive pulmonary disease) Diabetes mellitus Essential hypertension Hyperlipidemia, unspecified Hypogammaglobulinemia Limb swelling Poor dentition Tobacco abuse Type 2 diabetes mellitus with unspecified complications Surgical History H/O tubal ligation Family History Family History Father Diabetes Other Asthma Social History Social History Household Members: Children Household Members Other:: 3 Housing: Apartment Do you presently have visiting nurse or other home services: Yes (visiting nurses daily) Alcohol intake: unknown Patient Tobacco Use Status: Current someday Tobacco user Tobacco use type: Cigarette Cigarettes Per Day: 1 Years Smoked: 35 e-Cigarette/Vaping Use: Currently Using Second Hand Smoke Exposure: No Substance Use Type: Former Substance User Advance Directives: Yes Advance Directives Information Provided: Yes Advance Directives on File: No Advance Directives Date on File: 11/16/20 service: No Current occupational status: unemployed and disabled Physical Exam ED Vital Signs: Vital Signs - 24 hr 05/17/21 00:42 05/17/21 01:16 05/17/21 03:15 Temperature 99.4 F Pulse Rate 98 100 102 H Respiratory Rate 20 20 18 Blood Pressure 153/82 H 150/77 H 119/41 L Pulse Oximetry 93 92 98 BMI result Body Mass Index 39.2 Appearance: Alert. Oriented X3. No acute distress. Eyes: No pallor/ icterus ENT: Pharynx normal. Oral Mucosa moist Neck: Normal inspection. Neck supple. CVS: Normal heart rate and rhythm. Pulses normal. Respiratory: No respiratory distress. Equal air entry bilateral, no wheezing/rales/rhonchi Abdomen: Soft mild tenderness in epigastric area, Bowel sounds are present, no mass palpable, no CVA tenderness Skin: Skin warm and dry. Normal skin color. Normal skin turgor. Extremities: No lower extremity edema. No calf tenderness Neuro: Oriented X 3. No motor deficit. MDM - Abdominal Pain MDM Narrative Medical decision making narrative: Patient's acute gastritis vomiting during stay in the ER patient was sleeping without any vomiting episode received IV fluids labs are stable with chronic metabolic alkalosis. Will discharge patient home Lab Data Attestation: I reviewed the patient's lab results. Result diagrams: 05/17/21 02:05/17/21 02:22 Labs: Lab Results 05/17/21 05/17/21 05/17/21 Range/Units 02: 02: 02:22 WBC 15.6 H (4.8-10.8) X10*3/uL RBC 3.98 L (4.20-5.50) X10*6/uL Hgb 12.1 (12.0-16.0) g/dl Hct 39.8 (37.0-47.0) % MCV 100.0 H (80.0-98.0) fL MCH 30.4 (27.0-33.0) pg MCHC 30.4 L (31.0-35.0) g/dl RDW 12.6 (11.0-16.0) % Plt Count 260 (160-400) X10*3/uL MPV 9.0 L (9.4-12.3) fL Immature Gran % (Auto) 0.5 H (0.0-0.4) % Neut % (Auto) 85.2 H (45-73) % Lymph % (Auto) 7.5 L (20-40) % Nicholas % (Auto) 6.4 (2-11) % Eos % (Auto) 0.3 (0-4) % Baso % (Auto) 0.1 (0-2) % Lymph # (Auto) 1.2 (1.2-4.9) X10*3/uL Nicholas # (Auto) 1.0 (0.1-1.2) X10*3/uL Eos # (Auto) 0.0 (0.0-0.4) X10*3/uL Baso # (Auto) 0.0 (0.0-0.2) X10*3/uL Abs Immat Gran (auto) 0.07 H (0.00-0.03) X10*3/uL Absolute Neuts (auto) 13.3 H (2.0-8.3) x10*3/uL Absolute Nucleated RBC 0.000 (0.0-0.012) X10*3/uL Nucleated RBC % (auto) 0.0 (0.0-0.2) /100WBC VBG pH (7.32-7.43) VBG pCO2 mmHg VBG pO2 mmHg VBG HCO3 (22-26) mmol/L VBG O2 Saturation % VBG Base Excess mmol/L Sodium 142 (135-145) mmol/L Potassium 3.8 (3.3-5.1) mmol/L Chloride 93 L (96-108) mmol/L Carbon Dioxide 40 H* (22-29) mmol/L Anion Gap 13 (12-20) BUN 18 H D (9-16) mg/dL Creatinine 0.66 (0.5-1.4) mg/dL Estim Creat Clear Calc 105.6 Estimated GFR > 60 Random Glucose 166 H (60-115) mg/dL Calcium 9.3 (8.4-10.2) mg/dL Total Bilirubin 0.3 (0.0-1.0) mg/dL Direct Bilirubin < 0.2 (0.0-0.5) mg/dL AST 25 (5-31) U/L ALT 31 (0-31) U/L Alkaline Phosphatase 62 (39-117) U/L Total Protein 6.3 L (6.5-8.0) g/dL Albumin 3.6 (3.5-5.0) g/dL Lipase 24 (8-78) U/L COVID-19 (PAPO) Negative (Negative) COVID-19 Clin Com See Note 05/17/21 Range/Units 02:23 WBC (4.8-10.8) X10*3/uL RBC (4.20-5.50) X10*6/uL Hgb (12.0-16.0) g/dl Hct (37.0-47.0) % MCV (80.0-98.0) fL MCH (27.0-33.0) pg MCHC (31.0-35.0) g/dl RDW (11.0-16.0) % Plt Count (160-400) X10*3/uL MPV (9.4-12.3) fL Immature Gran % (Auto) (0.0-0.4) % Neut % (Auto) (45-73) % Lymph % (Auto) (20-40) % Nicholas % (Auto) (2-11) % Eos % (Auto) (0-4) % Baso % (Auto) (0-2) % Lymph # (Auto) (1.2-4.9) X10*3/uL Nicholas # (Auto) (0.1-1.2) X10*3/uL Eos # (Auto) (0.0-0.4) X10*3/uL Baso # (Auto) (0.0-0.2) X10*3/uL Abs Immat Gran (auto) (0.00-0.03) X10*3/uL Absolute Neuts (auto) (2.0-8.3) x10*3/uL Absolute Nucleated RBC (0.0-0.012) X10*3/uL Nucleated RBC % (auto) (0.0-0.2) /100WBC VBG pH 7.39 (7.32-7.43) VBG pCO2 92 mmHg VBG pO2 104 mmHg VBG HCO3 56 H (22-26) mmol/L VBG O2 Saturation 98.0 % VBG Base Excess 24.8 mmol/L Sodium (135-145) mmol/L Potassium (3.3-5.1) mmol/L Chloride (96-108) mmol/L Carbon Dioxide (22-29) mmol/L Anion Gap (12-20) BUN (9-16) mg/dL Creatinine (0.5-1.4) mg/dL Estim Creat Clear Calc Estimated GFR Random Glucose (60-115) mg/dL Calcium (8.4-10.2) mg/dL Total Bilirubin (0.0-1.0) mg/dL Direct Bilirubin (0.0-0.5) mg/dL AST (5-31) U/L ALT (0-31) U/L Alkaline Phosphatase (39-117) U/L Total Protein (6.5-8.0) g/dL Albumin (3.5-5.0) g/dL Lipase (8-78) U/L COVID-19 (PAPO) (Negative) COVID-19 Clin Com Discharge Plan Discharge Clinical Impression: Vomiting, Gastritis Patient Disposition: Home, Self-Care Instructions: Gastritis (ED), Acute Nausea and Vomiting (ED) Additional Instructions: Drink plenty of fluids Nausea medication as prescribed Continue your Prilosec Prescriptions: New ondansetron 4 mg tablet,disintegrating 4 mg PO Q6-8H PRN (Reason: nausea and vomiting) Qty: 7 0RF No Action tiotropium bromide [Spiriva with HandiHaler] 18 mcg capsule, w/inhalation device 1 cap inhalation DAILY Qty: 30 11RF immun glob S-lrp-mzim-IgA 0-50 10 gram recon soln 40 g IV Q4W Qty: 2 12RF ipratropium-albuterol 0.5 mg-3 mg(2.5 mg base)/3 mL solution for nebulization 3 ml inhalation Q4H PRN (Reason: for wheezing) Qty: 540 6RF sodium chloride 3 % solution for nebulization 4 ml inhalation BID Qty: 240 3RF sulfamethoxazole-trimethoprim [Bactrim DS] 800-160 mg tablet 1 tab PO Q12H 10 Days Qty: 20 0RF Arnoldo-24 400 mg capsule,extended release 24hr 800 mg PO DAILY Qty: 60 3RF furosemide [Lasix] 20 mg tablet 20 mg PO DAILY 3 Days Qty: 3 0RF levofloxacin 500 mg tablet 500 mg PO DAILY 8 Days Qty: 8 0RF gabapentin 100 mg capsule 1 cap PO BID 0RF Lantus U-100 Insulin 100 unit/mL solution 45 unit subcut BEDTIME 0RF diltiazem HCl [Tiadylt ER] 360 mg capsule,extended release 24 hr 1 cap PO DAILY 0RF rosuvastatin 5 mg tablet 1 tab PO BEDTIME 0RF Daliresp 500 mcg tablet 1 tab PO DAILY 0RF lidocaine 5 % adhesive patch,medicated 1 patch topical DAILY 0RF insulin lispro [Humalog U-100 Insulin] 100 unit/mL solution See Protocol sliding scale dose subcut TIDAC 0RF Protocol: Insulin Correction Scale Less than or equal to 110 ---- Give (units): 0 111 to 150 Give (units): 0 151 to 200 Give (units): 2 201 to 250 Give (units): 4 251 to 300 Give (units): 6 301 to 350 Give (units): 8 Greater than 350 Give (units): 10 Call MD if Blood Glucose > : 350 clonazepam 1 mg Tablet 1 mg PO BID PRN (Reason: Anxiety) 0RF zolpidem 10 mg Tablet 10 mg PO BEDTIME PRN (Reason: Insomnia) 0RF lisinopril 20 mg tablet 20 mg PO DAILY Qty: 30 0RF nicotine 7 mg/24 hr Patch 24 Hour 7 mg transdermal DAILY Qty: 30 0RF prednisone 20 mg tablet 60 mg PO DAILY 5 Days Qty: 15 0RF doxycycline hyclate 100 mg tablet 100 mg PO Q12H 10 Days Qty: 20 0RF montelukast 10 mg tablet 10 mg PO BEDTIME 0RF albuterol sulfate [ProAir HFA] 90 mcg/actuation HFA aerosol inhaler 2 puff inhalation Q4H PRN (Reason: Shortness Of Breath Or Wheezing) 0RF loratadine [Claritin] 10 mg tablet 10 mg PO DAILY 0RF metformin 500 mg tablet 500 mg PO BID 0RF methadone 10 mg tablet 49 mg PO DAILY 0RF Label Comments: PT PROVIDED DIFFERENT DOSE THAN IS LISTED IN THE SYSTEM, AWAITING DOSAGE FROM PRESCRIBING FACILITY sennosides [Natural Senna Laxative] 8.6 mg tablet 8.6 mg PO BEDTIME PRN (Reason: constipation) Qty: 30 3RF Brovana 15 mcg/2 mL solution for nebulization 2 ml inhalation Q12H 30 Days Qty: 120 11RF budesonide 0.5 mg/2 mL suspension for nebulization 0.5 mg inhalation BID Qty: 120 11RF nicotine (polacrilex) 2 mg gum 2 mg buccal Q3H PRN (Reason: nicotine cravings) 30 Days Qty: 100 3RF chlorhexidine gluconate 0.12 % mouthwash 15 ml buccal BID 14 Days Qty: 473 1RF omeprazole 40 mg capsule,delayed release(DR/EC) 40 mg PO DAILY 30 Days Qty: 30 3RF
[2021-05-17 01:16] VITALS: BP 150/77; PULSE 100; RESP 20; O2SAT 92
[2021-05-17] MEDS: 0.9 % Sodium Chloride 1,000 ML 999 ML IV (02:25)
[2021-05-17] MEDS: ondansetron HCL 4 MG/2 ML VIAL IVPUSH (02:25)
[2021-05-17] MEDS: Famotidine/PF 20 MG/2 ML VIAL IVPUSH (02:25)
[2021-05-17 02:26] LABS: MANUAL DIFF FLAG NO
[2021-05-17 02:27] LABS: Basophils Percent Auto 0.1 % (0-2); Eosinophils Percent Auto 0.3 % (0-4); Hematocrit 39.8 % (37.0-47.0); Hemoglobin 12.1 g/dl (12.0-16.0); Imm Gran Abs Auto 0.07 X10*3/uL (0.00-0.03); Imm Gran Pct Auto 0.5 % (0.0-0.4); Lymphocytes Absolute Auto 1.2 X10*3/uL (1.2-4.9); Lymphocytes Percent Auto 7.5 % (20-40); Mean Corpuscular HGB Conc 30.4 g/dl (31.0-35.0); Mean Corpuscular Hemoglobin 30.4 pg (27.0-33.0); Monocytes Percent Auto 6.4 % (2-11); Neutrophils Absolute Auto 13.3 x10*3/uL (2.0-8.3); Neutrophils Percent Auto 85.2 % (45-73); Platelet Count 260 X10*3/uL (160-400); Red Blood Count 3.98 X10*6/uL (4.20-5.50); Red Cell Distribution Width 12.6 % (11.0-16.0); White Blood Count 15.6 X10*3/uL (4.8-10.8)
[2021-05-17 02:31] LABS: VBG Base Excess 24.8 mmol/L; VBG HCO3 56 mmol/L (22-26); VBG pCO2 92 mmHg; VBG pH 7.39 (7.32-7.43); VBG pO2 104 mmHg
[2021-05-17 02:45] LABS: Venous Blood Gas Refer to POC result
[2021-05-17 02:45] LABS: COVID-19 Test Negative (Negative)
[2021-05-17 02:49] LABS: Alanine Aminotransferase 31 U/L (0-31); Albumin Level 3.6 g/dL (3.5-5.0); Alkaline Phosphatase 62 U/L (39-117); Anion Gap 13 (12-20); Aspartate Amino Transferase 25 U/L (5-31); Bilirubin Direct < 0.2 mg/dL (0.0-0.5); Bilirubin Total 0.3 mg/dL (0.0-1.0); Blood Urea Nitrogen 18 mg/dL (9-16); Calcium 9.3 mg/dL (8.4-10.2); Carbon Dioxide 40 mmol/L (22-29); Chloride 93 mmol/L (96-108); Creatinine Clr Calc Pharmacy 105.6; Estimated Glomerular Filt Rate > 60; Glucose Random 166 mg/dL (60-115); Lipase 24 U/L (8-78); Potassium 3.8 mmol/L (3.3-5.1); Sodium 142 mmol/L (135-145); Total Protein 6.3 g/dL (6.5-8.0)
[2021-05-17 03:15] VITALS: BP 119/41; PULSE 102; RESP 18; O2SAT 98
[2021-05-17 04:00] LABS: Glucose, Whole Blood 118 mg/dL (60-115)
--- NOTE | 2021-05-17 04:12 | PC.NURSE ---
Pt PO challeged and tolerating well. Per MD Lewis pt is at baseline and was here earlier this weeek. pt is oxygen dependant and remains on 3 L NC. Pt at this time is alert and oriented sitting in the room with fan. Transportation is being arranged [facility] ambulance due to pt being oxygen dependant. Pt aware of plan of care
--- NOTE | 2021-05-17 04:21 | PC.NURSE ---
pt requested breathing treatment, dr trevino aware
[2021-05-17] MEDS: Albuterol/Iprat 2.5/0.5MG 3 ML AMPUL.NEB INHALE (04:42)
[2021-05-17 04:43] VITALS: PULSE 104; RESP 20; O2SAT 96
--- NOTE | 2021-05-17 05:37 | PC.NURSE ---
pt received breathing treatment and states her breathing has improved. Pt was found sleeping while sitting at edge of bed. redirected to lay in bed, this rn placed bed rails up at this time to prevent fall. Still pending transportation back home.
[2021-05-17 05:38] VITALS: PULSE 101; RESP 17; O2SAT 91
--- NOTE | 2021-05-17 06:10 | PC.NURSE ---
[facility] here to transport patient back home
== END 2021-05-17 06:21 | disposition home or self-care (01) ==
PROVIDERS: Emergency Provider Internal Medicine
DX: K29.70 Gastritis, unspecified, without bleeding (principal); R11.10 Vomiting, unspecified; Z20.822 Contact with and (suspected) exposure to COVID-19; E11.9 Type 2 diabetes mellitus without complications; I10 Essential (primary) hypertension; E78.5 Hyperlipidemia, unspecified; F17.200 Nicotine dependence, unspecified, uncomplicated; Z79.02 Long term (current) use of antithrombotics/antiplatelets; Z79.4 Long term (current) use of insulin; Z99.81 Dependence on supplemental oxygen
CPT/HCPCS: 80048; 80076; 82803; 82947; 83690; 85025; 87635; 94640; 96361; 96374; 96375; 99284; J2405

== ENCOUNTER 2021-05-18 17:01 | Inpatient (IN) | payer MEDICAID, SELFPAY ==
[2021-05-18] VITALS (10 sets, daily range): BP systolic 117–160; BP diastolic 54–90; PULSE 72–96; RESP 15–24; TEMP 36.2–36.9; O2SAT 76–98; BMI 38.7; BMI 39.5
--- NOTE | ~2021-05-18 | XR_ITS ---
EXAMINATION: XR CHEST CLINICAL INFORMATION: Hypoxemia. Rule out pneumonia COMPARISON: 04/20/2021 TECHNIQUE: Frontal view of the chest was obtained. FINDINGS: There is increased interstitial prominence diffusely. Healed bilateral rib fractures are present. Normal heart size. No definite pleural effusion. No dense focal consolidation. XR/XR chest 1V IMPRESSION: Further increased diffuse bilateral interstitial prominence. This could represent interstitial pulmonary edema or an infectious or inflammatory process such as bronchitis or viral pneumonitis.
--- NOTE | 2021-05-18 17:08 | ED_ITS ---
HPI - SOB/Dyspnea General Chief Complaint: Dyspnea Stated Complaint: copd Time Seen by Provider: 05/18/21 17:02 Source: EMS Mode of arrival: EMS Limitations: other (Dyspnea, hypoxia, on CPAP) History of Present Illness HPI Narrative: 51-year-old female with history of asthma/COPD who presents emergency department for evaluation dyspnea and decreased O2 saturations at home. The patient has a history of COPD/asthma and is oxygen dependent, she is on 2 L of oxygen via nasal cannula at home. According to EMS, the family has noted that the patient's O2 saturation has gone up in gone down over the past 2 days. She appeared short of breath so they called an ambulance. Paramedics report that she was on 2 L via nasal cannula and her O2 saturation was 76%. They placed her on a non-rebreather mask and her O2 saturation did not improve. That then placed her on CPAP and her O2 saturation improved 100%. She got no further treatment EN route to the hospital. On presentation, the patient was taken off CPAP and placed on our CPAP/BiPAP machine. Patient's O2 saturation is 100% lung exam did reveal diffuse wheezing. She was ordered to get Solu-Medrol 125 mg IV and albuterol nebulizer 7.5 mg through the BiPAP machine. In reviewing the patient's record, she was just here yesterday on 05/17/2021 for gastritis and vomiting. She was given IV fluids. Her laboratory evaluation was consistent with a chronic metabolic alkalosis. She has been seen in the past for COPD exacerbation and respiratory failure treated with BiPAP. Related Data Home Medications Medication Instructions Recorded Confirmed albuterol sulfate 90 mcg/actuation 2 puff INHALATION Q4H PRN 12/30/19 02/21/21 aerosol inhaler (ProAir HFA) loratadine 10 mg tablet (Claritin) 10 mg PO DAILY 12/30/19 02/21/21 metformin 500 mg tablet 500 mg PO BID 12/30/19 02/21/21 methadone 10 mg tablet 49 mg PO DAILY 12/30/19 02/21/21 montelukast 10 mg tablet 10 mg PO BEDTIME 12/30/19 02/21/21 gabapentin 100 mg capsule 1 cap PO BID 10/14/20 02/21/21 insulin glargine 100 unit/mL 45 unit SUBCUT BEDTIME 10/14/20 02/21/21 subcutaneous solution (Lantus U-100 Insulin) diltiazem HCl 360 mg capsule,24 1 cap PO DAILY 11/16/20 02/21/21 hr,extended release (Tiadylt ER) roflumilast 500 mcg tablet 1 tab PO DAILY 11/16/20 02/21/21 (Daliresp) rosuvastatin 5 mg tablet 1 tab PO BEDTIME 11/16/20 02/21/21 insulin lispro 100 unit/mL See Protocol SUBCUT TIDAC 12/14/20 02/21/21 subcutaneous solution (Humalog U-100 Insulin) lidocaine 5 % topical patch 1 patch TOPICAL DAILY 12/14/20 02/21/21 clonazepam 1 mg tablet 1 mg PO BID PRN 02/10/21 02/21/21 zolpidem 10 mg tablet 10 mg PO BEDTIME PRN 02/10/21 02/21/21 Previous Rx's Medication Instructions Recorded tiotropium bromide 18 mcg capsule 1 cap INHALATION DAILY #30 inh 05/11/20 with inhalation device (Spiriva with HandiHaler) immune glob,gamma(IgG) 10 40 g IV Q4W #2 ea 06/16/20 oakj-aqc-rccg-IgA 0 to 50 mcg/mL IV solution arformoterol 15 mcg/2 mL solution 2 ml INHALATION Q12H 30 Days #120 09/20/20 for nebulization (Brovana) ml budesonide 0.5 mg/2 mL suspension 0.5 mg (2 mL) INHALATION BID #120 09/20/20 for nebulization ml ipratropium 0.5 mg-albuterol 3 mg 3 ml INHALATION Q4H PRN #540 ml 10/30/20 (2.5 mg base)/3 mL nebulization soln nicotine (polacrilex) 2 mg gum 2 mg BUCCAL Q3H PRN 30 Days #100 ea 11/23/20 sennosides 8.6 mg tablet (Natural 8.6 mg PO BEDTIME PRN #30 tab 11/24/20 Senna Laxative) nicotine 7 mg/24 hr daily 7 mg TRANSDERMAL DAILY #30 ea 12/17/20 transdermal patch chlorhexidine gluconate 0.12 % 15 ml BUCCAL BID 14 Days #473 ml 12/18/20 mouthwash sodium chloride 3 % for 4 ml INHALATION BID #240 ml 01/22/21 nebulization lisinopril 20 mg tablet 20 mg PO DAILY #30 tab 02/25/21 sulfamethoxazole 800 1 tab PO Q12H 10 Days #20 tab 03/29/21 mg-trimethoprim 160 mg tablet (Bactrim DS) theophylline 400 mg 800 mg PO DAILY #60 cap 04/18/21 capsule,extended release 24 hr (Arnoldo-24) doxycycline hyclate 100 mg tablet 100 mg PO Q12H 10 Days #20 tab 04/20/21 furosemide 20 mg tablet (Lasix) 20 mg PO DAILY 3 Days #3 tab 04/20/21 prednisone 20 mg tablet 60 mg PO DAILY 5 Days #15 tab 04/20/21 levofloxacin 500 mg tablet 500 mg PO DAILY 8 Days #8 tab 05/09/21 omeprazole 40 mg capsule,delayed 40 mg PO DAILY 30 Days #30 cap 05/14/21 release ondansetron 4 mg disintegrating 4 mg PO Q6-8H PRN #7 tab 05/17/21 tablet Allergies Allergy/AdvReac Type Severity Reaction Status Date / Time No Known Allergies Allergy Verified 05/14/21 09:46 [No Known Allergies*] Review of Systems Review of Systems: Yes all other systems are reviewed and are negative PMFSH Past Medical History Medical History Abdominal pain Asthma-COPD overlap syndrome Chronic respiratory failure Chronic respiratory failure COPD (chronic obstructive pulmonary disease) Diabetes mellitus Essential hypertension Hyperlipidemia, unspecified Hypogammaglobulinemia Limb swelling Poor dentition Tobacco abuse Type 2 diabetes mellitus with unspecified complications Surgical History H/O tubal ligation Family History Family History Father Diabetes Other Asthma Social History Social History Household Members: Children Household Members Other:: 3 Housing: Apartment Do you presently have visiting nurse or other home services: Yes (visiting nurses daily) Alcohol intake: unknown Patient Tobacco Use Status: Current someday Tobacco user Tobacco use type: Cigarette Cigarettes Per Day: 1 Years Smoked: 35 e-Cigarette/Vaping Use: Currently Using Second Hand Smoke Exposure: No Substance Use Type: Former Substance User Advance Directives: Yes Advance Directives on File: Yes Advance Directives Date on File: 11/16/20 service: No Current occupational status: unemployed and disabled Physical Exam Vital Signs: Vital Signs: Last Vital Signs Temp 98.4 F 05/18/21 19:46 Pulse 85 05/18/21 19:46 Resp 18 05/18/21 20:00 BP 138/90 H 05/18/21 19:46 Pulse Ox 94 05/18/21 19:46 BMI result Body Mass Index 38.7 Const: Other: Awake, alert, female patient, on BiPAP, cushion oil appearing, does not appear to be in distress HENMT: Head: Yes normal to inspection, Yes normocephalic and Yes atraumatic Ears: external ears normal General nose exam: Normal external nose present Face and sinus: Yes normal facial exam Mouth: Normal oral and palatal mucosa present Throat: Yes posterior oropharynx normal Eyes: General: appearance normal, both eyes and all related structures Pupils: Equal, round and reactive pupils present Neck: Neck: Yes normal visual inspection, Yes no lymphadenopathy, Yes trachea midline and Yes supple Chest: Chest palpation & inspection: normal inspection of the chest and normal palpation of entire chest wall Resp: Effort & Inspection: normal respiratory effort Auscultation: wheezes (Diffuse wheezing) Cardio: Rate: regular rate Rhythm: regular rhythm Heart sounds: S1 normal heart sound present, S2 normal heart sound present and no murmurs GI: Inspection: Yes normal to inspection Palpation (GI): Soft to palpation, nontender and no guarding Auscultation: normal bowel sounds : General: Yes no CVA tenderness Back/Spine/Pelvis: Back: no CVA tenderness Skin: General skin exam: no rashes or lesions noted Neuro: Cranial nerves: Yes CN's II-XII intact bilaterally and Yes Equal, round and reactive pupils present Motor exam (neuro): 5/5 motor strength present throughout Extrem: Other: Patient has diffuse ecchymosis on her skin, lower extremities trace to 1+ pitting edema symmetric Psych: Appearance: grossly normal Attitude: cooperative Course Course Course Narrative: 51-year-old female who was brought to the emergency department for evaluation of decreased O2 saturations and shortness of breath x2 days noted by the family. Patient was unable to give me a history. According to the paramedics when they arrived the patient was on 2 L of oxygen via nasal cannula and her O2 saturation was 76% on room air. The patient did not improve with a non-rebreather but did improve with CPAP. She was converted to BiPAP here in the emergency department and placed on 15/5+/40% FiO2. She was also given albuterol 7.5 mg hour long nebulizer. Patient's laboratory evaluation [place] [address], elevated [place] 0246, elevated glucose of 176. The patient's lactic acid was not elevated. The patient's COVID-19 was negative. Chest x-ray did reveal increased interstitial markings compared to patient's previous chest x-ray which was concerning for pulmonary edema verses interstitial pneumonia. 2026: The patient was ordered to get Zosyn 4.5 g IV. ABG done on the above BiPAP setting revealed pH of 7.22, pCO2of 133, PO2 of 83 and a bicarb of 55. The patient's gas is consistent with respiratory acidosis secondary to ret ention. Patient's BiPAP settings were adjusted to 18/6 +/50%. I did discuss this patient with the cnc mill set up operator, Dr. Geller who recommended that we try to decrease the FiO2 to keep the patient's O2 saturation 88% or above. He did review the patient's labs and x-ray that the patient's x-ray was more consistent with CHF. He recommended acetazolamide 500 mg IV. He will accept the patient to the intensive care unit. The patient was also ordered to get another albuterol nebulizer 7.5 mg over 1 hour. The patient has not been hypotensive, her lactate is normal, she is afebrile however she does meet severe sepsis criteria based on her COPD exacerbation, hypoxia and need for BiPAP. The patient's focus exam was performed. 2031: Respiratory therapy was able to decrease the patient's FiO2 to 35% and maintain and O2 saturation of 94%, new BiPAP settings are now 18/6+/35% FiO2. MDM - SOB/Dyspnea Lab Data Result diagrams: 05/18/21 18:12 05/18/21 18:12 Labs: Lab Results 05/18/21 05/18/21 05/18/21 Range/Units 18:12 18:12 18:12 WBC 11.5 H (4.8-10.8) X10*3/uL RBC 4.07 L (4.20-5.50) X10*6/uL Hgb 12.6 (12.0-16.0) g/dl Hct 41.7 (37.0-47.0) % MCV 102.5 H (80.0-98.0) fL MCH 31.0 (27.0-33.0) pg MCHC 30.2 L (31.0-35.0) g/dl RDW 12.4 (11.0-16.0) % Plt Count 266 (160-400) X10*3/uL MPV 9.1 L (9.4-12.3) fL Immature Gran % (Auto) 0.6 H (0.0-0.4) % Neut % (Auto) 93.2 H (45-73) % Lymph % (Auto) 4.2 L (20-40) % [place] % (Auto) 1.8 L (2-11) % Eos % (Auto) 0.1 (0-4) % Baso % (Auto) 0.1 (0-2) % Lymph # (Auto) 0.5 L (1.2-4.9) X10*3/uL [place] # (Auto) 0.2 (0.1-1.2) X10*3/uL Eos # (Auto) 0.0 (0.0-0.4) X10*3/uL Baso # (Auto) 0.0 (0.0-0.2) X10*3/uL Abs Immat Gran (auto) 0.07 H (0.00-0.03) X10*3/uL Absolute Neuts (auto) 10.7 H (2.0-8.3) x10*3/uL Absolute Nucleated RBC 0.000 (0.0-0.012) X10*3/uL Nucleated RBC % (auto) 0.0 (0.0-0.2) /100WBC Smear Tech's Comments VERIFIED O2 Saturation % ABG pH at Pt Temp (7.35-7.45) ABG pCO2 at Pt Temp (32-45) mmHg ABG pO2 at Pt Temp (83-108) mmHg ABG HCO3 (22-26) mmol/L ABG Base Excess (Actual) mmol/L Sodium 141 (135-145) mmol/L Potassium 4.2 (3.3-5.1) mmol/L Chloride 89 L (96-108) mmol/L Carbon Dioxide 46 H* (22-29) mmol/L Anion Gap 10 L (12-20) BUN 11 (9-16) mg/dL Creatinine 0.61 (0.5-1.4) mg/dL Estim Creat Clear Calc 113.5 Estimated GFR > 60 Random Glucose 172 H (60-115) mg/dL Lactic Acid (0.5-2.0) mmol/L Calcium 9.3 (8.4-10.2) mg/dL Total Bilirubin 0.4 (0.0-1.0) mg/dL AST 24 (5-31) U/L ALT 28 (0-31) U/L Alkaline Phosphatase 64 (39-117) U/L Troponin I High Sens (<3.5-17.0) ng/L B-Natriuretic Peptide 61 (<100) pg/mL Total Protein 6.3 L (6.5-8.0) g/dL Albumin 3.6 (3.5-5.0) g/dL Lipase 4 L (8-78) U/L COVID-19 (PAPO) (Negative) COVID-19 Clin Com 05/18/21 05/18/21 05/18/21 Range/Units 18:12 18:12 18:12 WBC (4.8-10.8) X10*3/uL RBC (4.20-5.50) X10*6/uL Hgb (12.0-16.0) g/dl Hct (37.0-47.0) % MCV (80.0-98.0) fL MCH (27.0-33.0) pg MCHC (31.0-35.0) g/dl RDW (11.0-16.0) % Plt Count (160-400) X10*3/uL MPV (9.4-12.3) fL Immature Gran % (Auto) (0.0-0.4) % Neut % (Auto) (45-73) % Lymph % (Auto) (20-40) % [place] % (Auto) (2-11) % Eos % (Auto) (0-4) % Baso % (Auto) (0-2) % Lymph # (Auto) (1.2-4.9) X10*3/uL [place] # (Auto) (0.1-1.2) X10*3/uL Eos # (Auto) (0.0-0.4) X10*3/uL Baso # (Auto) (0.0-0.2) X10*3/uL Abs Immat Gran (auto) (0.00-0.03) X10*3/uL Absolute Neuts (auto) (2.0-8.3) x10*3/uL Absolute Nucleated RBC (0.0-0.012) X10*3/uL Nucleated RBC % (auto) (0.0-0.2) /100WBC Smear Tech's Comments O2 Saturation % ABG pH at Pt Temp (7.35-7.45) ABG pCO2 at Pt Temp (32-45) mmHg ABG pO2 at Pt Temp (83-108) mmHg ABG HCO3 (22-26) mmol/L ABG Base Excess (Actual) mmol/L Sodium (135-145) mmol/L Potassium (3.3-5.1) mmol/L Chloride (96-108) mmol/L Carbon Dioxide (22-29) mmol/L Anion Gap (12-20) BUN (9-16) mg/dL Creatinine (0.5-1.4) mg/dL Estim Creat Clear Calc Estimated GFR Random Glucose (60-115) mg/dL Lactic Acid 0.4 L (0.5-2.0) mmol/L Calcium (8.4-10.2) mg/dL Total Bilirubin (0.0-1.0) mg/dL AST (5-31) U/L ALT (0-31) U/L Alkaline Phosphatase (39-117) U/L Troponin I High Sens 14.4 D (<3.5-17.0) ng/L B-Natriuretic Peptide (<100) pg/mL Total Protein (6.5-8.0) g/dL Albumin (3.5-5.0) g/dL Lipase (8-78) U/L COVID-19 (PAPO) Negative (Negative) COVID-19 Clin Com See Note 05/18/21 Range/Units 19:59 WBC (4.8-10.8) X10*3/uL RBC (4.20-5.50) X10*6/uL Hgb (12.0-16.0) g/dl Hct (37.0-47.0) % MCV (80.0-98.0) fL MCH (27.0-33.0) pg MCHC (31.0-35.0) g/dl RDW (11.0-16.0) % Plt Count (160-400) X10*3/uL MPV (9.4-12.3) fL Immature Gran % (Auto) (0.0-0.4) % Neut % (Auto) (45-73) % Lymph % (Auto) (20-40) % [place] % (Auto) (2-11) % Eos % (Auto) (0-4) % Baso % (Auto) (0-2) % Lymph # (Auto) (1.2-4.9) X10*3/uL [place] # (Auto) (0.1-1.2) X10*3/uL Eos # (Auto) (0.0-0.4) X10*3/uL Baso # (Auto) (0.0-0.2) X10*3/uL Abs Immat Gran (auto) (0.00-0.03) X10*3/uL Absolute Neuts (auto) (2.0-8.3) x10*3/uL Absolute Nucleated RBC (0.0-0.012) X10*3/uL Nucleated RBC % (auto) (0.0-0.2) /100WBC Smear [facility]'s Comments O2 Saturation 94.0 % ABG pH at Pt Temp 7.22 L (7.35-7.45) ABG pCO2 at Pt Temp 133 H* (32-45) mmHg ABG pO2 at Pt Temp 83 (83-108) mmHg ABG HCO3 55 H (22-26) mmol/L ABG Base Excess (Actual) 20.3 mmol/L Sodium (135-145) mmol/L Potassium (3.3-5.1) mmol/L Chloride (96-108) mmol/L Carbon Dioxide (22-29) mmol/L Anion Gap (12-20) BUN (9-16) mg/dL Creatinine (0.5-1.4) mg/dL Estim Creat Clear Calc Estimated GFR Random Glucose (60-115) mg/dL Lactic Acid (0.5-2.0) mmol/L Calcium (8.4-10.2) mg/dL Total Bilirubin (0.0-1.0) mg/dL AST (5-31) U/L ALT (0-31) U/L Alkaline Phosphatase (39-117) U/L Troponin I High Sens (<3.5-17.0) ng/L B-Natriuretic Peptide (<100) pg/mL Total Protein (6.5-8.0) g/dL Albumin (3.5-5.0) g/dL Lipase (8-78) U/L COVID-19 (PAPO) (Negative) COVID-19 Clin Com ECG Data Interpretation: 17 50: Normal sinus rhythm rate of 77, normal [place] interval, QRS duration and QTC interval, no ST segment elevation, no ST segment depression, no PACs, no PVCs, no T-wave abnormalities. The patient does have poor R-wave progression from V1 through V3. Critical Care Time Critical Care Time Critical Care Time: Yes Total Critical Care Time: 55 Attestation: Critical Care: The patient was critically ill with a high probability of imminent or life threatening deterioration. I spent greater than 30 minutes of discontinuous time evaluating the patient,delivering critical care at the bedside, discussing and evaluating pertinent data with consultants. Critical care time does not include time spent performing separately billable procedures or teaching. Total time spent performing critical care was 55 minutes. Discharge Plan Discharge Patient Disposition: Admitted As Inpatient Prescriptions: No Action tiotropium bromide [Spiriva with HandiHaler] 18 mcg capsule, w/inhalation device 1 cap inhalation DAILY Qty: 30 11RF immun glob M-isd-[id number]-IgA 0-50 10 gram recon soln 40 g IV Q4W Qty: 2 12RF ipratropium-albuterol 0.5 mg-3 mg(2.5 mg base)/3 mL solution for nebulization 3 ml inhalation Q4H PRN (Reason: for wheezing) Qty: 540 6RF sodium chloride 3 % solution for nebulization 4 ml inhalation BID Qty: 240 3RF sulfamethoxazole-trimethoprim [Bactrim DS] 800-160 mg tablet 1 tab PO Q12H 10 Days Qty: 20 0RF Arnoldo-24 400 mg capsule,extended release 24hr 800 mg PO DAILY Qty: 60 3RF furosemide [Lasix] 20 mg tablet 20 mg PO DAILY 3 Days Qty: 3 0RF levofloxacin 500 mg tablet 500 mg PO DAILY 8 Days Qty: 8 0RF gabapentin 100 mg capsule 1 cap PO BID 0RF Lantus U-100 Insulin 100 unit/mL solution 45 unit subcut BEDTIME 0RF diltiazem HCl [Tiadylt ER] 360 mg capsule,extended release 24 hr 1 cap PO DAILY 0RF rosuvastatin 5 mg tablet 1 tab PO BEDTIME 0RF Daliresp 500 mcg tablet 1 tab PO DAILY 0RF lidocaine 5 % adhesive patch,medicated 1 patch topical DAILY 0RF insulin lispro [Humalog U-100 Insulin] 100 unit/mL solution See Protocol sliding scale dose subcut TIDAC 0RF Protocol: Insulin Correction Scale Less than or equal to 110 ---- Give (units): 0 111 to 150 Give (units): 0 151 to 200 Give (units): 2 201 to 250 Give (units): 4 251 to 300 Give (units): 6 301 to 350 Give (units): 8 Greater than 350 Give (units): 10 Call MD if Blood Glucose > : 350 clonazepam 1 mg Tablet 1 mg PO BID PRN (Reason: Anxiety) 0RF zolpidem 10 mg Tablet 10 mg PO BEDTIME PRN (Reason: Insomnia) 0RF lisinopril 20 mg tablet 20 mg PO DAILY Qty: 30 0RF ondansetron 4 mg tablet,disintegrating 4 mg PO Q6-8H PRN (Reason: nausea and vomiting) Qty: 7 0RF nicotine 7 mg/24 hr Patch 24 Hour 7 mg transdermal DAILY Qty: 30 0RF prednisone 20 mg tablet 60 mg PO DAILY 5 Days Qty: 15 0RF doxycycline hyclate 100 mg tablet 100 mg PO Q12H 10 Days Qty: 20 0RF montelukast 10 mg tablet 10 mg PO BEDTIME 0RF albuterol sulfate [ProAir HFA] 90 mcg/actuation HFA aerosol inhaler 2 puff inhalation Q4H PRN (Reason: Shortness Of Breath Or Wheezing) 0RF loratadine [Claritin] 10 mg tablet 10 mg PO DAILY 0RF metformin 500 mg tablet 500 mg PO BID 0RF methadone 10 mg tablet 49 mg PO DAILY 0RF Label Comments: PT PROVIDED DIFFERENT DOSE THAN IS LISTED IN THE SYSTEM, AWAITING DOSAGE FROM PRESCRIBING FACILITY sennosides [Natural Senna Laxative] 8.6 mg tablet 8.6 mg PO BEDTIME PRN (Reason: constipation) Qty: 30 3RF Brovana 15 mcg/2 mL solution for nebulization 2 ml inhalation Q12H 30 Days Qty: 120 11RF budesonide 0.5 mg/2 mL suspension for nebulization 0.5 mg inhalation BID Qty: 120 11RF nicotine (polacrilex) 2 mg gum 2 mg buccal Q3H PRN (Reason: nicotine cravings) 30 Days Qty: 100 3RF chlorhexidine gluconate 0.12 % mouthwash 15 ml buccal BID 14 Days Qty: 473 1RF omeprazole 40 mg capsule,delayed release(DR/EC) 40 mg PO DAILY 30 Days Qty: 30 3RF
--- NOTE | 2021-05-18 17:10 | ECG_ITS ---
Test Reason : SOB Blood Pressure : / mmHG Vent. Rate : 077 BPM Atrial Rate : 077 BPM P-R Int : 134 ms QRS Dur : 080 ms QT Int : 412 ms P-R-T Axes : 066 030 043 degrees QTc Int : 466 ms Normal sinus rhythm Cannot rule out Anterior infarct , age undetermined Abnormal ECG When compared with ECG of 20-APR-2021 21:45, No significant change was found Referred By: Brenton Harry Electronically Signed By:Harris Phillips
[2021-05-18] MEDS: methylPREDNISolone Sod Succ 125 MG/2 ML VIAL IVPUSH (17:13)
[2021-05-18] MEDS: Albuterol Sulfate (0.083%) 2.5 MG/3 ML VIAL.NEB 7.5 MG INHALE (17:22)
[2021-05-18 18:20] LABS: Basophils Percent Auto 0.1 % (0-2); Eosinophils Percent Auto 0.1 % (0-4); Hematocrit 41.7 % (37.0-47.0); Hemoglobin 12.6 g/dl (12.0-16.0); Imm Gran Abs Auto 0.07 X10*3/uL (0.00-0.03); Imm Gran Pct Auto 0.6 % (0.0-0.4); Lymphocytes Absolute Auto 0.5 X10*3/uL (1.2-4.9); Lymphocytes Percent Auto 4.2 % (20-40); MANUAL DIFF FLAG SCAN; Mean Corpuscular HGB Conc 30.2 g/dl (31.0-35.0); Mean Corpuscular Volume 102.5 fL (80.0-98.0); Mean Platelet Volume 9.1 fL (9.4-12.3); Monocytes Absolute Auto 0.2 X10*3/uL (0.1-1.2); Monocytes Percent Auto 1.8 % (2-11); Neutrophils Absolute Auto 10.7 x10*3/uL (2.0-8.3); Neutrophils Percent Auto 93.2 % (45-73); Platelet Count 266 X10*3/uL (160-400); Red Blood Count 4.07 X10*6/uL (4.20-5.50); Red Cell Distribution Width 12.4 % (11.0-16.0); SCAN SMEAR FLAG 1; White Blood Count 11.5 X10*3/uL (4.8-10.8)
[2021-05-18 18:34] LABS: Lactic Acid 0.4 mmol/L (0.5-2.0)
[2021-05-18 18:35] LABS: COVID-19 Test Negative (Negative)
[2021-05-18 18:38] LABS: SLIDE REVIEW VERIFIED
--- NOTE | 2021-05-18 18:40 | PC.NURSE ---
pt reported that she has been experiencing increased sob x1 day. her o2 sat at home was 76% r/a. pt put on cpap by ems brought o2 sat to 100%. pt anxious on arrival. she was placed on bipap by respiratory therapist on 15 lpm at 40%. iv placed, labs drawn. pt stable.
[2021-05-18 18:41] LABS: Alanine Aminotransferase 28 U/L (0-31); Albumin Level 3.6 g/dL (3.5-5.0); Alkaline Phosphatase 64 U/L (39-117); Anion Gap 10 (12-20); Aspartate Amino Transferase 24 U/L (5-31); Bilirubin Total 0.4 mg/dL (0.0-1.0); Blood Urea Nitrogen 11 mg/dL (9-16); Calcium 9.3 mg/dL (8.4-10.2); Carbon Dioxide 46 mmol/L (22-29); Chloride 89 mmol/L (96-108); Creatinine Clr Calc Pharmacy 113.5; Estimated Glomerular Filt Rate > 60; Glucose Random 172 mg/dL (60-115); Lipase 4 U/L (8-78); Potassium 4.2 mmol/L (3.3-5.1); Sodium 141 mmol/L (135-145); Total Protein 6.3 g/dL (6.5-8.0)
[2021-05-18 18:42] LABS: Troponin-I High Sensitivity 14.4 ng/L (<3.5-17.0)
[2021-05-18 18:43] LABS: B Type Natriuretic Peptide 61 pg/mL (<100)
[2021-05-18] MEDS: Piperacillin Sodium/Tazobactam 4.5 GM in 0.9 % Sodium Chloride 100 ML IV (19:52)
[2021-05-18 20:04] LABS: ABG Refer to POC result
[2021-05-18 20:07] LABS: ABG Base Excess 20.3 mmol/L; ABG HCO3 55 mmol/L (22-26); ABG pCO2 133 mmHg (32-45); ABG pH 7.22 (7.35-7.45); ABG pO2 83 mmHg (83-108)
[2021-05-18] MEDS: acetaZOLAMIDE sodium 500 MG VIAL IVPUSH (20:34)
--- NOTE | 2021-05-18 21:05 | PM.CCHP ---
History of Present Illness Date of Service: 05/18/21 Attending physician on admission: Rasta Geller Chief Complaint: dyspnea The patient is a 51-year-old woman with a past medical history of asthma COPD overlap syndrome (on 30mg of prednisone daily, chronic? hypercarbic and hypoxic respiratory failure currently on 2l via [place] home oxygen,? diabetes mellitus, hypertension, hyperlipidemia, tobacco use, and Hypogammaglobulinemia on IVIG, also recently seen in the emergency room on 05/17/21? for gastritis and given IV fluids and sent home. Today she presented to the emergency room? via EMS? due to dyspnea.? Patient reports she has been short of breath for the past 2 days, worsening today. ? EMS report patient O2 saturation 76%? on her chronic 2 L via nasal cannula require CPAP support en route? to the hospital.? ? In the emergency room,? it was noted patient was wheezing and complaining of SOB.? ABGs 7.//83/55.? She was placed on BiPAP.? ?Imaging:? ?Chest x-ray did show some congestion ?ED course:? patient received? albuterol, methylprednisolone 125,? Zosyn and Diamox ? Patient will be admitted? to the ICU for management of acute hypercapnic respiratory failure? requiring BiPAP support Review of Systems Review of Systems: Constitutional: No, fever, chills, weakness or fatigue. Eyes: No visual loss, blurred vision, double vision or yellow sclera ENT: No hearing loss, sneezing, congestion, runny nose or sore throat. Respiratory: (+)Dyspnea, non productive cough. No hemoptysis. Cardiovascular: No chest pain. No palpitations. No edema Gastrointestinal: + diffuse abdominal pain. No, nausea, vomiting or diarrhea. Genitourinary: No frequency or incontinence. Neurologic: No headache, dizziness, syncope, unilateral weakness, Musculoskeletal: No muscle pain Skin: No rash or itching. PMFSH Past Medical History Medical History Abdominal pain Asthma-COPD overlap syndrome Chronic respiratory failure Chronic respiratory failure COPD (chronic obstructive pulmonary disease) Diabetes mellitus Essential hypertension Hyperlipidemia, unspecified Hypogammaglobulinemia Limb swelling Poor dentition Tobacco abuse Type 2 diabetes mellitus with unspecified complications Family History Family History Father Diabetes Other Asthma Surgical History Surgical History H/O tubal ligation Social History Social History Household Members: Children Household Members Other:: 3 Housing: Apartment Do you presently have visiting nurse or other home services: Yes (visiting nurses daily) Alcohol intake: unknown Patient Tobacco Use Status: Current someday Tobacco user Tobacco use type: Cigarette Cigarettes Per Day: 1 Years Smoked: 35 e-Cigarette/Vaping Use: Currently Using Second Hand Smoke Exposure: No Substance Use Type: Former Substance User Advance Directives: Yes Advance Directives on File: Yes Advance Directives Date on File: 11/16/20 service: No Current occupational status: unemployed and disabled Meds Allergies Allergy/AdvReac Type Severity Reaction Status Date / Time No Known Allergies Allergy Verified 05/14/21 09:46 [No Known Allergies*] Active Medications: Current Medications Albuterol/Ipratropium (Albuterol/Iprat 2.5/0.5mg 3 Ml Ampul.Neb) 3 ml INHALE RQ6H ANA Enoxaparin Sodium (Enoxaparin Sodium 40 Mg/0.4 Ml Syringe) 40 mg SUBCUT Q24H ANA Methylprednisolone Sodium Succinate (Methylprednisolone Sod Succ 125 Mg/2 Ml Vial) 80 mg IVPUSH Q12H ANA Home Medications Medication Instructions Recorded Confirmed Last Taken Type albuterol sulfate 90 mcg/actuation 2 puff INHALATION Q4H PRN 12/30/19 05/18/21 02/21/21 History aerosol inhaler (ProAir HFA) loratadine 10 mg tablet (Claritin) 10 mg PO DAILY 12/30/19 05/18/21 02/21/21 History methadone 10 mg tablet 49 mg PO DAILY 12/30/19 02/21/21 02/21/21 History montelukast 10 mg tablet 10 mg PO BEDTIME 12/30/19 05/18/21 02/20/21 History gabapentin 100 mg capsule 1 cap PO BID 10/14/20 05/18/21 02/21/21 History insulin glargine 100 unit/mL 45 unit SUBCUT BEDTIME 10/14/20 05/18/21 02/21/21 History subcutaneous solution (Lantus U-100 Insulin) diltiazem HCl 360 mg capsule,24 1 cap PO DAILY 11/16/20 05/18/21 02/21/21 History hr,extended release (Tiadylt ER) roflumilast 500 mcg tablet 1 tab PO DAILY 11/16/20 05/18/21 02/21/21 History (Daliresp) rosuvastatin 5 mg tablet 1 tab PO BEDTIME 11/16/20 05/18/21 02/20/21 History insulin lispro 100 unit/mL See Protocol SUBCUT TIDAC 12/14/20 05/18/21 02/21/21 History subcutaneous solution (Humalog U-100 Insulin) lidocaine 5 % topical patch 1 patch TOPICAL DAILY 12/14/20 05/18/21 02/21/21 History metformin 500 mg tablet,extended 2 tab PO BID 05/18/21 05/18/21 Unknown History release 24 hr prednisone 10 mg tablet 10 mg PO BEDTIME 05/18/21 05/18/21 Unknown History prednisone 10 mg tablet 20 mg PO DAILY 05/18/21 05/18/21 Unknown History theophylline 400 mg 400 mg PO BID 05/18/21 05/18/21 Unknown History capsule,extended release 24 hr (Arnoldo-24) Physical Exam Vital Signs: Vital Signs: Last Vital Signs Temp 98.4 F 05/18/21 19:46 Pulse 85 05/18/21 19:46 Resp 18 05/18/21 20:00 BP 138/90 H 05/18/21 19:46 Pulse Ox 94 05/18/21 19:46 BMI result Body Mass Index 38.7 Constitutional: Alert, on BIPAP Mental Status: Oriented to person, place and time. Head: Normocephalic. Eyes: Pupils are equal, round and reactive to light. Extraocular muscles intact. Ear, Nose and Throat: Oropharynx clear, mucous membranes moist. trachea midlight Neck: Supple, Full range of motion. Respiratory: Expiratory wheezing in all lung matthews.? Minor increased work of breathing on BIPAP Cardiovascular: S1 S2 regular. No murmurs, rubs or gallops. Gastrointestinal: Abdomen soft, non-tender, Normal bowel sounds. Genitourinary: No costovertebral angle tenderness. Neurologic: Cranial nerves II-XII grossly intact. No focal neurological deficits. Moves all extremities spontaneously. Sensation intact bilaterally. Skin: scattered ecchymosis Results Labs CBC and Chem 7: 05/18/21 18:12 05/18/21 18:12 Labs: Laboratory Results - last 24 hr 05/18/21 05/18/21 05/18/21 18:12 18:12 18:12 MCV 102.5 H MCH 31.0 MCHC 30.2 L RDW 12.4 Plt Count 266 MPV 9.1 L Immature Gran % (Auto) 0.6 H Neut % (Auto) 93.2 H Lymph % (Auto) 4.2 L [place] % (Auto) 1.8 L Eos % (Auto) 0.1 Baso % (Auto) 0.1 Lymph # (Auto) 0.5 L [place] # (Auto) 0.2 Eos # (Auto) 0.0 Baso # (Auto) 0.0 Abs Immat Gran (auto) 0.07 H Absolute Neuts (auto) 10.7 H Absolute Nucleated RBC 0.000 Nucleated RBC % (auto) 0.0 Smear Tech's Comments VERIFIED O2 Saturation ABG pH at Pt Temp ABG pCO2 at Pt Temp ABG pO2 at Pt Temp ABG HCO3 ABG Base Excess (Actual) Anion Gap 10 L Estim Creat Clear Calc 113.5 Estimated GFR > 60 Random Glucose 172 H Lactic Acid Calcium 9.3 Total Bilirubin 0.4 AST 24 ALT 28 Alkaline Phosphatase 64 B-Natriuretic Peptide 61 Total Protein 6.3 L Albumin 3.6 Lipase 4 L COVID-19 (PAPO) COVID-19 Clin [facility] 05/18/21 05/18/21 05/18/21 18:12 18:12 19:59 MCV MCH MCHC RDW Plt Count MPV Immature Gran % (Auto) Neut % (Auto) Lymph % (Auto) [place] % (Auto) Eos % (Auto) Baso % (Auto) Lymph # (Auto) [place] # (Auto) Eos # (Auto) Baso # (Auto) Abs Immat Gran (auto) Absolute Neuts (auto) Absolute Nucleated RBC Nucleated RBC % (auto) Smear Tech's Comments O2 Saturation 94.0 ABG pH at Pt Temp 7.22 L ABG pCO2 at Pt Temp 133 H* ABG pO2 at Pt Temp 83 ABG HCO3 55 H ABG Base Excess (Actual) 20.3 Anion Gap Estim Creat Clear Calc Estimated GFR Random Glucose Lactic Acid 0.4 L Calcium Total Bilirubin AST ALT Alkaline Phosphatase B-Natriuretic Peptide Total Protein Albumin Lipase COVID-19 (PAPO) Negative COVID-19 Clin Com See Note Imaging Radiologist's Impressions: Impressions Chest X-Ray 05/18/21 17:25 IMPRESSION: Further increased diffuse bilateral interstitial prominence. This could represent interstitial pulmonary edema or an infectious or inflammatory process such as bronchitis or viral pneumonitis. Assessment and Plan (1) Acute on chronic respiratory failure with hypoxia and hypercapnia: Status: Acute (2) Acute exacerbation of chronic obstructive pulmonary disease: Status: Acute (3) Pulmonary congestion: Status: Acute (4) Asthma-COPD overlap syndrome: Status: Acute Plan ?51-year-old female? with asthma COPD overlap syndrome, chronic hypoxic and hypercapnic respiratory failure on home O2,? who presented to the emergency room with worsening dyspnea,? being admitted to the ICU for acute hypercapnic respiratory failure? BiPAP support Plan: Neuro:? No acute issues. Cardiac:?? Pulmonary congestion:? and chest x-ray patient is shown to have? some congestion. ? underlying CHF. She was seen yesterday at ED for gastritis given fluids and D/C home. Will give diamox. ECHO in the am? Pulmonary:?? acute hypoxic and hypercapnic respiratory failure secondary to COPD exacerbation. Will give systemic glucocorticoids, nebulized bronchodilators and Diamox and add azithromycin.? Keep 02 saturation 88-92%.? No signs of acute infection shown in x-ray and normal lactate level. Renal:? No acute issues.?? Endo:? No acute issues.?? GI:? No acute issues. ID:? ?Mild leukocytosis,? this is likely due to chronic steroid.? No signs of acute infection Heme/Onc:? No acute issues. Psych:? No acute issues. Miscellaneous:? No acute issues. Prophylaxis:? Lovenox, doesn't require GI prophylaxis Diet:? NPO while on BIPAP Critical care time spent:? 45 minutes Case discussed with Dr Geller Critical Care Time 45
[2021-05-18] MEDS: Enoxaparin Sodium 40 MG/0.4 ML SYRINGE SUBCUT (21:48)
--- NOTE | 2021-05-18 22:22 | PC.NURSE ---
I assumed care of this pt at 1900. Since that time the pt has been alert, sitting upright in bed with BiPAP placed. She remained on BiPAP for the duration of my time with her, mostly with eyes closed - eyes open to verbal stimuli at which time she is verbal, but difficult to understand therefore difficult to assess her mental status, although she makes eye contact with RN and is calm and cooperative. Respiratory: BiPAP 18/6, FiO2 35%, sat's have been 90-94% (goal 88-93%, RT aware of that). RR 16, no obvious use of accessory muscles, no cyanosis. She shakes her head no when I ask her if she is in pain. She is MC x 4. She denies nausea. No vomiting. In the little time I cared for Anju I continuously monitored her respiratory status and prepared her for transport to ICu. Nursing report given to Marsha RN in ICU and I assisted with transport to ICU along with RT. pt remained on BiPAP for transport.
[2021-05-18 22:56] LABS: ABG Base Excess 20.1 mmol/L; ABG HCO3 53 mmol/L (22-26); ABG pCO2 112 mmHg (32-45); ABG pH 7.28 (7.35-7.45); ABG pO2 59 mmHg (83-108)
[2021-05-18] MEDS: Albuterol/Iprat 2.5/0.5MG 3 ML AMPUL.NEB INHALE (23:12)
--- NOTE | 2021-05-18 23:25 | PC.NURSE ---
PT TO ICU AT 2200 ON BIPAP FACEMASK. PT RESTLESS AND MILDLY ANXIOUS. ANSWERS SOME QUESTIONS APPROPRIATELY BUT SHORT OF BREATH WITH EXCERTION. O2 SAT 84-88% ON 28% O2 AND THUS O2 WAS INCREASED TO 30 THEN 40%. ABG'S DRAWN BY RESP THERAPIST RIGHT RADIAL SITE WITHOUT COMPLICATION. ABG'S REVIEWED BY BERTHA BLANKENSHIP NP AND O2 DECREASED TO 28%. PT SETTLED AND RELAXED AFTER ABOUT AN HOUR ON THE UNIT AND FELL ASLEEP. O2 SATS AT THIS TIME 90-91% ON BIPAP FACEMASK AT 18/6 AND 28%. PIPER CATH INSERTED WITHOUT DIFFICULTY AND 450 ML CLEAR URBANO URINE RETURNED. SPECIMEN SENT TO LAB FOR U/O, C&S. MONITOR SHOWS NSR, 70'S-80'S, NO ECTOPY.
[2021-05-18 23:46] LABS: Appearance Urine CLEAR; Color Urine YELLOW; Glucose Urine UA NEG (NEG); Leukocyte Esterase Urine NEG (NEG); Nitrite Urine NEG (NEG); PH 7.5 (5.0-8.0); Urine Blood NEG (NEG); Urine Ketones NEG (NEG); Urine Protein TRACE MG/DL (NEG-TRACE)
[2021-05-18 23:53] LABS: Glucose, Whole Blood 199 mg/dL (60-115)
[2021-05-18 23:57] LABS: ABG Refer to POC result
[2021-05-19] VITALS (37 sets, daily range): BP systolic 106–160; BP diastolic 55–90; PULSE 71–146; RESP 12–35; TEMP 36.3–37.2; O2SAT 88–95; BMI 39.5
[2021-05-19 05:40] LABS: Basophils Percent Auto 0.1 % (0-2); Hematocrit 41.5 % (37.0-47.0); Hemoglobin 12.9 g/dl (12.0-16.0); Imm Gran Abs Auto 0.05 X10*3/uL (0.00-0.03); Imm Gran Pct Auto 0.5 % (0.0-0.4); Lymphocytes Absolute Auto 0.4 X10*3/uL (1.2-4.9); Lymphocytes Percent Auto 3.4 % (20-40); MANUAL DIFF FLAG SCAN; Mean Corpuscular HGB Conc 31.1 g/dl (31.0-35.0); Mean Corpuscular Hemoglobin 30.6 pg (27.0-33.0); Mean Corpuscular Volume 98.6 fL (80.0-98.0); Mean Platelet Volume 9.3 fL (9.4-12.3); Monocytes Absolute Auto 0.2 X10*3/uL (0.1-1.2); Monocytes Percent Auto 1.6 % (2-11); Neutrophils Absolute Auto 9.8 x10*3/uL (2.0-8.3); Neutrophils Percent Auto 94.4 % (45-73); Platelet Count 267 X10*3/uL (160-400); Red Blood Count 4.21 X10*6/uL (4.20-5.50); SCAN SMEAR FLAG 1; White Blood Count 10.4 X10*3/uL (4.8-10.8)
[2021-05-19 05:41] LABS: Venous Blood Gas Refer to POC result
[2021-05-19 05:42] LABS: VBG HCO3 42 mmol/L (22-26); VBG pCO2 72 mmHg; VBG pH 7.37 (7.32-7.43); VBG pO2 67 mmHg
--- NOTE | 2021-05-19 05:43 | PC.NURSE ---
pt tolerated bipap mask all night. woke up at 0530. Mask removed for mouth care to be done. mouth is dry. mouth swabbed, oral and lip moisturizer applied. mask off for 20 min and then back on at same setting. pt repositioned and back to sleep after am labs drawn. vitals/rhythm stable. u/o good.
[2021-05-19] MEDS: Albuterol/Iprat 2.5/0.5MG 3 ML AMPUL.NEB INHALE ×3 (05:49→17:11)
[2021-05-19] MEDS: methylPREDNISolone Sod Succ 125 MG/2 ML VIAL 80 MG IVPUSH (05:52)
[2021-05-19 05:59] LABS: Albumin Level 3.6 g/dL (3.5-5.0); Anion Gap 11 (12-20); Blood Urea Nitrogen 9 mg/dL (9-16); Calcium 9.8 mg/dL (8.4-10.2); Carbon Dioxide 37 mmol/L (22-29); Chloride 95 mmol/L (96-108); Creatinine Clr Calc Pharmacy 109.4; Estimated Glomerular Filt Rate > 60; Glucose Random 172 mg/dL (60-115); Magnesium 1.9 mg/dL (1.6-2.6); Phosphorus 3.1 mg/dL (2.7-4.5); Potassium 3.9 mmol/L (3.3-5.1); Sodium 139 mmol/L (135-145)
[2021-05-19 06:03] LABS: SLIDE REVIEW VERIFIED
[2021-05-19] MEDS: Insulin Lispro 100 UNIT/ML 3 ML VIAL SUBCUT ×2 (06:05→11:23)
[2021-05-19 06:12] LABS: Glucose, Whole Blood 194 mg/dL (60-115)
[2021-05-19] MEDS: acetaZOLAMIDE sodium 500 MG VIAL IVPUSH ×2 (09:43→19:54)
[2021-05-19] MEDS: Albuterol Sulfate (0.083%) 2.5 MG/3 ML VIAL.NEB INHALE (10:15)
[2021-05-19] MEDS: Haloperidol Lactate 5 MG/ML VIAL 10 MG IVPUSH (10:28)
[2021-05-19] MEDS: LORazepam 2 MG/ML VIAL 1 MG IVPUSH ×2 (10:45→19:25)
[2021-05-19] MEDS: fentaNYL citrate/PF 100 MCG/2 ML VIAL 50 MCG IVPUSH ×2 (10:55→19:50)
[2021-05-19 11:01] LABS: Amphetamine Screen Urine Not Detected (Not Detect); Barbiturates, Urine Not Detected (Not Detect); Benzodiazepines Screen Urine Not Detected (Not Detect); Cannabinoid Screen Urine Not Detected (Not Detect); Cocaine Screen Urine Not Detected (Not Detect); Fentanyl, urine Not Detected (Not Detect); Opiate Screen Urine Not Detected (Not Detect); Phencyclidine Screen Urine Not Detected (Not Detect)
[2021-05-19] MEDS: Insulin Glargine,Hum.rec.anlog 100 UNIT/ML 10 ML VIAL 20 UNIT SUBCUT (11:08)
[2021-05-19 11:09] LABS: Glucose, Whole Blood 192 mg/dL (60-115)
--- NOTE | 2021-05-19 11:10 | PM.CCPN ---
Subjective Subjective Date of Service: 05/19/21 Interval History: 51-year-old lady with underlying morbid obesity, asthma/ COPD overlap syndrome, obesity hypoventilation, on 2 L of supplemental oxygen, nocturnal BiPAP hypogammaglobulinemia on IVIG, opioid dependence on methadone, diabetes mellitus, hypertension, admitted on 05/18/2021 with dyspnea and hypoxia requiring BiPAP support. On ER evaluation patient noted to be in acute on chronic hypoxic and hypercapnic respiratory failure likely secondary to exacerbation of underlying congestive heart failure. She has been started on IV Diamox and admitted to intensive care unit. No events overnight. Attempted to be titrated off BiPAP this a.m. with development of respiratory distress requiring re-initiation of BiPAP support. Critical Care Time (minutes): 45 Physical Exam Vital Signs: Vital Signs: Last Vital Signs Temp 98.8 F 05/19/21 11:00 Pulse 111 H 05/19/21 11:00 Resp 18 05/19/21 11:00 BP 121/73 05/19/21 11:00 Pulse Ox 92 05/19/21 11:00 BMI result Body Mass Index 39.5 Const: General: no acute distress and lethargic ( Arousable and follows commands) Nutritional Appearance: obese and Edematous Orientation/consciousness: lethargic ( Arousable and follows commands) Eyes: Sclerae: sclerae normal EOM: EOMs intact bilaterally Neck: Neck: Yes no lymphadenopathy, Yes trachea midline and Yes supple Resp: Effort & Inspection: normal respiratory effort ( on BiPAP) and no respiratory distress Auscultation: crackles ( bibasilar) Cardio: Rate: regular rate Rhythm: regular rhythm Heart sounds: no gallops, no murmurs and no rubs GI: Palpation (GI): Soft to palpation and Other GI palpation findings present ( Nontender) Auscultation: normal bowel sounds Extrem: General: No clubbing, No cyanosis and Yes edema ( 1+ bilateral) Objective Data Labs CBC & Chem 7: 05/19/21 05:21 05/19/21 05:21 Labs: Laboratory Results - last 24 hr 05/18/21 05/18/21 05/18/21 18:12 18:12 18:12 WBC 11.5 H RBC 4.07 L Hgb 12.6 Hct 41.7 MCV 102.5 H MCH 31.0 MCHC 30.2 L RDW 12.4 Plt Count 266 MPV 9.1 L Immature Gran % (Auto) 0.6 H Neut % (Auto) 93.2 H Lymph % (Auto) 4.2 L [place] % (Auto) 1.8 L Eos % (Auto) 0.1 Baso % (Auto) 0.1 Lymph # (Auto) 0.5 L [place] # (Auto) 0.2 Eos # (Auto) 0.0 Baso # (Auto) 0.0 Abs Immat Gran (auto) 0.07 H Absolute Neuts (auto) 10.7 H Absolute Nucleated RBC 0.000 Nucleated RBC % (auto) 0.0 Smear Tech's Comments VERIFIED O2 Saturation ABG pH at Pt Temp ABG pCO2 at Pt Temp ABG pO2 at Pt Temp ABG HCO3 ABG Base Excess (Actual) VBG pH VBG pCO2 VBG pO2 VBG HCO3 VBG O2 Saturation VBG Base Excess Sodium 141 Potassium 4.2 Chloride 89 L Carbon Dioxide 46 H* Anion Gap 10 L BUN 11 Creatinine 0.61 Estim Creat Clear Calc 113.5 Estimated GFR > 60 POC Glucose Random Glucose 172 H Lactic Acid Calcium 9.3 Phosphorus Magnesium Total Bilirubin 0.4 AST 24 ALT 28 Alkaline Phosphatase 64 Troponin I High Sens B-Natriuretic Peptide 61 Total Protein 6.3 L Albumin 3.6 Lipase 4 L Urine Color Urine Appearance Urine pH Ur Specific [place] Urine Protein Urine Glucose (UA) Urine Ketones Urine Blood Urine Nitrite Ur Leukocyte Esterase Urine Opiates Screen Urine Fentanyl Screen Ur Barbiturates Screen Ur Phencyclidine Scrn Ur Amphetamines Screen U Benzodiazepines Scrn Urine Cocaine Screen U Marijuana (THC) Screen COVID-19 (PAPO) COVID-19 Clin Com 05/18/21 05/18/21 05/18/21 18:12 18:12 18:12 WBC RBC Hgb Hct MCV MCH MCHC RDW Plt Count MPV Immature Gran % (Auto) Neut % (Auto) Lymph % (Auto) [place] % (Auto) Eos % (Auto) Baso % (Auto) Lymph # (Auto) [place] # (Auto) Eos # (Auto) Baso # (Auto) Abs Immat Gran (auto) Absolute Neuts (auto) Absolute Nucleated RBC Nucleated RBC % (auto) Smear Tech's Comments O2 Saturation ABG pH at Pt Temp ABG pCO2 at Pt Temp ABG pO2 at Pt Temp ABG HCO3 ABG Base Excess (Actual) VBG pH VBG pCO2 VBG pO2 VBG HCO3 VBG O2 Saturation VBG Base Excess Sodium Potassium Chloride Carbon Dioxide Anion Gap BUN Creatinine Estim Creat Clear Calc Estimated GFR POC Glucose Random Glucose Lactic Acid 0.4 L Calcium Phosphorus Magnesium Total Bilirubin AST ALT Alkaline Phosphatase Troponin I High Sens 14.4 D B-Natriuretic Peptide Total Protein Albumin Lipase Urine Color Urine Appearance Urine pH Ur Specific [place] Urine Protein Urine Glucose (UA) Urine Ketones Urine Blood Urine Nitrite Ur Leukocyte Esterase Urine Opiates Screen Urine Fentanyl Screen Ur Barbiturates Screen Ur Phencyclidine Scrn Ur Amphetamines Screen U Benzodiazepines Scrn Urine Cocaine Screen U Marijuana (THC) Screen COVID-19 (PAPO) Negative COVID-[place] See Note 05/18/21 05/18/21 05/18/21 19:59 22:48 23:00 WBC RBC Hgb Hct MCV MCH MCHC RDW Plt Count MPV Immature Gran % (Auto) Neut % (Auto) Lymph % (Auto) [place] % (Auto) Eos % (Auto) Baso % (Auto) Lymph # (Auto) [place] # (Auto) Eos # (Auto) Baso # (Auto) Abs Immat Gran (auto) Absolute Neuts (auto) Absolute Nucleated RBC Nucleated RBC % (auto) Smear Tech's Comments O2 Saturation 94.0 86.0 ABG pH at Pt Temp 7.22 L 7.28 L ABG pCO2 at Pt Temp 133 H* 112 H* ABG pO2 at Pt Temp 83 59 L ABG HCO3 55 H 53 H ABG Base Excess (Actual) 20.3 20.1 VBG pH VBG pCO2 VBG pO2 VBG HCO3 VBG O2 Saturation VBG Base Excess Sodium Potassium Chloride Carbon Dioxide Anion Gap BUN Creatinine Estim Creat Clear Calc Estimated GFR POC Glucose Random Glucose Lactic Acid Calcium Phosphorus Magnesium Total Bilirubin AST ALT Alkaline Phosphatase Troponin I High Sens B-Natriuretic Peptide Total Protein Albumin Lipase Urine Color YELLOW Urine Appearance CLEAR Urine pH 7.5 Ur Specific [place] 1.020 Urine Protein TRACE Urine Glucose (UA) NEG Urine Ketones NEG Urine Blood NEG Urine Nitrite NEG Ur Leukocyte Esterase NEG Urine Opiates Screen Urine Fentanyl Screen Ur Barbiturates Screen Ur Phencyclidine Scrn Ur Amphetamines Screen U Benzodiazepines Scrn Urine Cocaine Screen U Marijuana (THC) Screen COVID-19 (PAPO) COVID-[place] 05/18/21 05/19/2105/19/22 23:48 05:21 05:21 WBC 10.4 RBC 4.21 Hgb 12.9 Hct 41.5 MCV 98.6 H MCH 30.6 MCHC 31.1 RDW 12.0 Plt Count 267 MPV 9.3 L Immature Gran % (Auto) 0.5 H Neut % (Auto) 94.4 H Lymph % (Auto) 3.4 L [place] % (Auto) 1.6 L Eos % (Auto) 0.0 Baso % (Auto) 0.1 Lymph # (Auto) 0.4 L [place] # (Auto) 0.2 Eos # (Auto) 0.0 Baso # (Auto) 0.0 Abs Immat Gran (auto) 0.05 H Absolute Neuts (auto) 9.8 H Absolute Nucleated RBC 0.000 Nucleated RBC % (auto) 0.0 Smear Tech's Comments VERIFIED O2 Saturation ABG pH at Pt Temp ABG pCO2 at Pt Temp ABG pO2 at Pt Temp ABG HCO3 ABG Base Excess (Actual) VBG pH VBG pCO2 VBG pO2 VBG HCO3 VBG O2 Saturation VBG Base Excess Sodium 139 Potassium 3.9 Chloride 95 L Carbon Dioxide 37 H Anion Gap 11 L BUN 9 Creatinine 0.64 Estim Creat Clear Calc 109.4 Estimated GFR > 60 POC Glucose 199 H Random Glucose 172 H Lactic Acid Calcium 9.8 Phosphorus 3.1 Magnesium 1.9 Total Bilirubin AST ALT Alkaline Phosphatase Troponin I High Sens B-Natriuretic Peptide Total Protein Albumin 3.6 Lipase Urine Color Urine Appearance Urine pH Ur Specific [place] Urine Protein Urine Glucose (UA) Urine Ketones Urine Blood Urine Nitrite Ur Leukocyte Esterase Urine Opiates Screen Urine Fentanyl Screen Ur Barbiturates Screen Ur Phencyclidine Scrn Ur Amphetamines Screen U Benzodiazepines Scrn Urine Cocaine Screen U Marijuana (THC) Screen COVID-19 (PAPO) COVID-19 Clin Com 05/19/21 05/19/21 05/19/21 05:35 06:00 10:41 WBC RBC Hgb Hct MCV MCH MCHC RDW Plt Count MPV Immature Gran % (Auto) Neut % (Auto) Lymph % (Auto) [place] % (Auto) Eos % (Auto) Baso % (Auto) Lymph # (Auto) [place] # (Auto) Eos # (Auto) Baso # (Auto) Abs Immat Gran (auto) Absolute Neuts (auto) Absolute Nucleated RBC Nucleated RBC % (auto) Smear Tech's Comments O2 Saturation ABG pH at Pt Temp ABG pCO2 at Pt Temp ABG pO2 at Pt Temp ABG HCO3 ABG Base Excess (Actual) VBG pH 7.37 VBG pCO2 72 VBG pO2 67 VBG HCO3 42 H VBG O2 Saturation 92.0 VBG Base Excess 13.0 Sodium Potassium Chloride Carbon Dioxide Anion Gap BUN Creatinine Estim Creat Clear Calc Estimated GFR POC Glucose 194 H Random Glucose Lactic Acid Calcium Phosphorus Magnesium Total Bilirubin AST ALT Alkaline Phosphatase Troponin I High Sens B-Natriuretic Peptide Total Protein Albumin Lipase Urine Color Urine Appearance Urine pH Ur Specific [place] Urine Protein Urine Glucose (UA) Urine Ketones Urine Blood Urine Nitrite Ur Leukocyte Esterase Urine Opiates Screen Not Detected Urine Fentanyl Screen Not Detected Ur Barbiturates Screen Not Detected Ur Phencyclidine Scrn Not Detected Ur Amphetamines Screen Not Detected U Benzodiazepines Scrn Not Detected Urine Cocaine Screen Not Detected U Marijuana (THC) Screen Not Detected COVID-19 (PAPO) COVID-19 avocarrot Com 05/19/21 11:06 WBC RBC Hgb Hct MCV MCH MCHC RDW Plt Count MPV Immature Gran % (Auto) Neut % (Auto) Lymph % (Auto) [place] % (Auto) Eos % (Auto) Baso % (Auto) Lymph # (Auto) [place] # (Auto) Eos # (Auto) Baso # (Auto) Abs Immat Gran (auto) Absolute Neuts (auto) Absolute Nucleated RBC Nucleated RBC % (auto) Smear Tech's Comments O2 Saturation ABG pH at Pt Temp ABG pCO2 at Pt Temp ABG pO2 at Pt Temp ABG HCO3 ABG Base Excess (Actual) VBG pH VBG pCO2 VBG pO2 VBG HCO3 VBG O2 Saturation VBG Base Excess Sodium Potassium Chloride Carbon Dioxide Anion Gap BUN Creatinine Estim Creat Clear Calc Estimated GFR POC Glucose 192 H Random Glucose Lactic Acid Calcium Phosphorus Magnesium Total Bilirubin AST ALT Alkaline Phosphatase Troponin I High Sens B-Natriuretic Peptide Total Protein Albumin Lipase Urine Color Urine Appearance Urine pH Ur Specific [place] Urine Protein Urine Glucose (UA) Urine Ketones Urine Blood Urine Nitrite Ur Leukocyte Esterase Urine Opiates Screen Urine Fentanyl Screen Ur Barbiturates Screen Ur Phencyclidine Scrn Ur Amphetamines Screen U Benzodiazepines Scrn Urine Cocaine Screen U Marijuana (THC) Screen COVID-19 (PAPO) COVID-19 Clin Com Progress Note: A&P Assessment and plan (1) Acute on chronic respiratory failure with hypoxia and hypercapnia: Status: Acute (2) Asthma-COPD overlap syndrome: Status: Acute (3) Opioid dependence: Status: Acute (4) Diabetes mellitus: Status: Acute (5) Pulmonary congestion: Status: Acute Plan Assessment: 51-year-old lady with underlying obesity, obesity hyperventilation, COPD /asthma, opioid dependence admitted with acute on chronic hypoxic and hypercapnic respiratory failure requiring BiPAP support likely secondary to pulmonary edema. Plan: Neuro: No acute issues. Cardiac: Possible underlying acute congestive heart failure. 2D echocardiogram is pending. Pulmonary: Acute on chronic hypoxic and hypercapnic respiratory failure now requiring BiPAP support. Continue to titrate off as tolerated. Continue with IV acetazolamide. Underlying obesity/ obesity hyperventilation syndrome on nocturnal noninvasive positive pressure ventilation at home. Renal: No acute issues. Endo: No acute issues. Underlying diabetes mellitus. GI: No acute issues. ID: No acute issues Heme/Onc: No acute issues. Psych: No acute issues. Miscellaneous: No acute issues. Prophylaxis: Heparin Diet: n. p.o. while on BiPAP Critical care time spent: 45 minutes Quality Stroke Does the patient have a stroke diagnosis?: No VTE Prior VTE?: No VTE Risk Level:: Medical - moderate - high VTE Device Contraindication: Treatment Not Indicated VTE Drug Contraindication: N/A - Med Ordered
[2021-05-19 13:01] LABS: ABG Base Excess 10.6 mmol/L; ABG HCO3 38 mmol/L (22-26); ABG pCO2 61 mmHg (32-45); ABG pH 7.39 (7.35-7.45); ABG pO2 70 mmHg (83-108)
[2021-05-19 17:17] LABS: Glucose, Whole Blood 155 mg/dL (60-115)
[2021-05-19 18:36] LABS: Anion Gap 13 (12-20); Blood Urea Nitrogen 15 mg/dL (9-16); Calcium 10.3 mg/dL (8.4-10.2); Carbon Dioxide 31 mmol/L (22-29); Chloride 102 mmol/L (96-108); Creatinine Clr Calc Pharmacy 101.5; Estimated Glomerular Filt Rate > 60; Glucose Random 152 mg/dL (60-115); Potassium 4.8 mmol/L (3.3-5.1); Sodium 141 mmol/L (135-145)
[2021-05-19] MEDS: Enoxaparin Sodium 40 MG/0.4 ML SYRINGE SUBCUT (19:54)
--- NOTE | 2021-05-19 20:32 | PC.NURSE ---
assumed care of pt at 1900. pt was anxious with resp rate in the high 30's-40's and heart rate up to 120's-139's. pt restless and moving all around in bed, thrashing back and forth. pt states she needs her methadone. it was explained to her by this RN and by [employer]ER Shaniqua Crespo the she received another med to help with her anxiety/withdrawal which was fentanyl. she would not calm down and was banging on side rail and side table. O2 sat started to decrease to mid 80's. Pt received ativan 1 mg iv as ordered prn. She then received fenatanyl 50 mcg iv with good effect. currently on bipap facemask 18/6/28%. pt resting quietly now. Hr is 90's NSR and resp rate is 16-18. O2 sat is 94%.
[2021-05-20] VITALS (30 sets, daily range): BP systolic 96–164; BP diastolic 45–99; PULSE 26–140; RESP 14–140; TEMP 36.2–38; O2SAT 89–96; BMI 39.2
[2021-05-20 00:38] LABS: Glucose, Whole Blood 124 mg/dL (60-115)
[2021-05-20] MEDS: Albuterol/Iprat 2.5/0.5MG 3 ML AMPUL.NEB INHALE ×5 (00:59→23:16)
[2021-05-20 05:25] LABS: VBG Base Excess 10.2 mmol/L; VBG HCO3 35 mmol/L (22-26); VBG pCO2 50 mmHg; VBG pH 7.45 (7.32-7.43); VBG pO2 68 mmHg
[2021-05-20 05:26] LABS: Venous Blood Gas Refer to POC result
[2021-05-20 05:32] LABS: Glucose, Whole Blood 107 mg/dL (60-115)
[2021-05-20 05:36] LABS: MANUAL DIFF FLAG NO
[2021-05-20 05:40] LABS: Basophils Percent Auto 0.1 % (0-2); Hematocrit 40.8 % (37.0-47.0); Hemoglobin 12.9 g/dl (12.0-16.0); Imm Gran Abs Auto 0.17 X10*3/uL (0.00-0.03); Lymphocytes Percent Auto 5.8 % (20-40); Mean Corpuscular HGB Conc 31.6 g/dl (31.0-35.0); Mean Corpuscular Hemoglobin 30.8 pg (27.0-33.0); Mean Corpuscular Volume 97.4 fL (80.0-98.0); Mean Platelet Volume 9.6 fL (9.4-12.3); Monocytes Absolute Auto 1.1 X10*3/uL (0.1-1.2); Monocytes Percent Auto 6.3 % (2-11); Neutrophils Absolute Auto 15.3 x10*3/uL (2.0-8.3); Neutrophils Percent Auto 86.8 % (45-73); Platelet Count 315 X10*3/uL (160-400); Red Blood Count 4.19 X10*6/uL (4.20-5.50); Red Cell Distribution Width 12.3 % (11.0-16.0); White Blood Count 17.7 X10*3/uL (4.8-10.8)
[2021-05-20 06:05] LABS: Albumin Level 3.4 g/dL (3.5-5.0); Anion Gap 13 (12-20); Blood Urea Nitrogen 25 mg/dL (9-16); Calcium 10.1 mg/dL (8.4-10.2); Carbon Dioxide 31 mmol/L (22-29); Chloride 101 mmol/L (96-108); Creatinine Clr Calc Pharmacy 107.3; Estimated Glomerular Filt Rate > 60; Glucose Random 96 mg/dL (60-115); Magnesium 2.2 mg/dL (1.6-2.6); Phosphorus 3.9 mg/dL (2.7-4.5); Potassium 3.6 mmol/L (3.3-5.1); Sodium 141 mmol/L (135-145)
[2021-05-20 10:20] LABS: Glucose, Whole Blood 92 mg/dL (60-115)
--- NOTE | 2021-05-20 10:22 | P.PNCC_ITS ---
Subjective Subjective Date of Service: 05/20/21 Interval History: ICU day 3 for acute on chronic hypoxic and hypercapnic respiratory failure acute congestive heart failure 51-year-old lady with underlying morbid obesity, asthma/ COPD overlap syndrome, obesity hypoventilation, on 2 L of supplemental oxygen, nocturnal BiPAP hypogammaglobulinemia on IVIG, opioid dependence on methadone, diabetes mellitus, hypertension, admitted on 05/18/2021 with dyspnea and hypoxia requiring BiPAP support. On ER evaluation patient noted to be in acute on chronic hypoxic and hypercapnic respiratory failure likely secondary to exacerbation of underlying congestive heart failure. She has been started on IV Diamox and admitted to intensive care unit. No events overnight. Continue to titrated of BiPAP. Critical Care Time (minutes): 45 Physical Exam Vital Signs: Vital Signs: Last Vital Signs Temp 98.4 F 05/20/21 10:00 Pulse 103 H 05/20/21 10:00 Resp 20 05/20/21 10:00 BP 137/83 05/20/21 10:00 Pulse Ox 94 05/20/21 10:00 BMI result Body Mass Index 39.2 Const: General: no acute distress, alert and awake Nutritional Appearance: obese Eyes: Sclerae: sclerae normal EOM: EOMs intact bilaterally Neck: Neck: Yes no lymphadenopathy, Yes trachea midline and Yes supple Resp: Effort & Inspection: normal respiratory effort and no respiratory distress Auscultation: clear to auscultation bilaterally Cardio: Rate: tachycardic Rhythm: regular rhythm Heart sounds: no gallops, no murmurs and no rubs GI: Palpation (GI): Soft to palpation and Other GI palpation findings present ( Nontender) Auscultation: normal bowel sounds Extrem: General: No clubbing, No cyanosis and Yes edema ( trace bilateral) Objective Data Labs CBC & Chem 7: 05/20/21 05:12 05/20/21 05:12 Labs: Laboratory Results - last 24 hr 05/19/21 05/19/21 05/19/21 10:41 11:06 12:49 WBC RBC Hgb Hct MCV MCH MCHC RDW Plt Count MPV Immature Gran % (Auto) Neut % (Auto) Lymph % (Auto) [place] % (Auto) Eos % (Auto) Baso % (Auto) Lymph # (Auto) [place] # (Auto) Eos # (Auto) Baso # (Auto) Abs Immat Gran (auto) Absolute Neuts (auto) Absolute Nucleated RBC Nucleated RBC % (auto) O2 Saturation 92.0 ABG pH at Pt Temp 7.39 ABG pCO2 at Pt Temp 61 H* ABG pO2 at Pt Temp 70 L ABG HCO3 38 H ABG Base Excess (Actual) 10.6 VBG pH VBG pCO2 VBG pO2 VBG HCO3 VBG O2 Saturation VBG Base Excess Sodium Potassium Chloride Carbon Dioxide Anion Gap BUN Creatinine Estim Creat Clear Calc Estimated GFR POC Glucose 192 H Random Glucose Calcium Phosphorus Magnesium Albumin Urine Opiates Screen Not Detected Urine Fentanyl Screen Not Detected Ur Barbiturates Screen Not Detected Ur Phencyclidine Scrn Not Detected Ur Amphetamines Screen Not Detected U Benzodiazepines Scrn Not Detected Urine Cocaine Screen Not Detected U Marijuana (THC) Screen Not Detected 05/19/21 05/19/21 05/20/21 17:13 18:02 00:35 WBC RBC Hgb Hct MCV MCH MCHC RDW Plt Count MPV Immature Gran % (Auto) Neut % (Auto) Lymph % (Auto) [place] % (Auto) Eos % (Auto) Baso % (Auto) Lymph # (Auto) [place] # (Auto) Eos # (Auto) Baso # (Auto) Abs Immat Gran (auto) Absolute Neuts (auto) Absolute Nucleated RBC Nucleated RBC % (auto) O2 Saturation ABG pH at Pt Temp ABG pCO2 at Pt Temp ABG pO2 at Pt Temp ABG HCO3 ABG Base Excess (Actual) VBG pH VBG pCO2 VBG pO2 VBG HCO3 VBG O2 Saturation VBG Base Excess Sodium 141 Potassium 4.8 D Chloride 102 Carbon Dioxide 31 H Anion Gap 13 BUN 15 D Creatinine 0.69 Estim Creat Clear Calc 101.5 Estimated GFR > 60 POC Glucose 155 H 124 H Random Glucose 152 H Calcium 10.3 H Phosphorus Magnesium Albumin Urine Opiates Screen Urine Fentanyl Screen Ur Barbiturates Screen Ur Phencyclidine Scrn Ur Amphetamines Screen U Benzodiazepines Scrn Urine Cocaine Screen U Marijuana (THC) Screen 05/20/21 05/20/21 05/20/21 05:12 05:12 05:18 WBC 17.7 H RBC 4.19 L Hgb 12.9 Hct 40.8 MCV 97.4 MCH 30.8 MCHC 31.6 RDW 12.3 Plt Count 315 MPV 9.6 Immature Gran % (Auto) 1.0 H Neut % (Auto) 86.8 H Lymph % (Auto) 5.8 L [place] % (Auto) 6.3 Eos % (Auto) 0.0 Baso % (Auto) 0.1 Lymph # (Auto) 1.0 L [place] # (Auto) 1.1 Eos # (Auto) 0.0 Baso # (Auto) 0.0 Abs Immat Gran (auto) 0.17 H Absolute Neuts (auto) 15.3 H Absolute Nucleated RBC 0.000 Nucleated RBC % (auto) 0.0 O2 Saturation ABG pH at Pt Temp ABG pCO2 at Pt Temp ABG pO2 at Pt Temp ABG HCO3 ABG Base Excess (Actual) VBG pH 7.45 H VBG pCO2 50 VBG pO2 68 VBG HCO3 35 H VBG O2 Saturation 92.0 VBG Base Excess 10.2 Sodium 141 Potassium 3.6 D Chloride 101 Carbon Dioxide 31 H Anion Gap 13 BUN 25 H D Creatinine 0.65 Estim Creat Clear Calc 107.3 Estimated GFR > 60 POC Glucose Random Glucose 96 Calcium 10.1 Phosphorus 3.9 Magnesium 2.2 Albumin 3.4 L Urine Opiates Screen Urine Fentanyl Screen Ur Barbiturates Screen Ur Phencyclidine Scrn Ur Amphetamines Screen U Benzodiazepines Scrn Urine Cocaine Screen U Marijuana (THC) Screen 05/20/21 05/20/21 05:29 10:17 WBC RBC Hgb Hct MCV MCH MCHC RDW Plt Count MPV Immature Gran % (Auto) Neut % (Auto) Lymph % (Auto) [place] % (Auto) Eos % (Auto) Baso % (Auto) Lymph # (Auto) [place] # (Auto) Eos # (Auto) Baso # (Auto) Abs Immat Gran (auto) Absolute Neuts (auto) Absolute Nucleated RBC Nucleated RBC % (auto) O2 Saturation ABG pH at Pt Temp ABG pCO2 at Pt Temp ABG pO2 at Pt Temp ABG HCO3 ABG Base Excess (Actual) VBG pH VBG pCO2 VBG pO2 VBG HCO3 VBG O2 Saturation VBG Base Excess Sodium Potassium Chloride Carbon Dioxide Anion Gap BUN Creatinine Estim Creat Clear Calc Estimated GFR POC Glucose 107 92 Random Glucose Calcium Phosphorus Magnesium Albumin Urine Opiates Screen Urine Fentanyl Screen Ur Barbiturates Screen Ur Phencyclidine Scrn Ur Amphetamines Screen U Benzodiazepines Scrn Urine Cocaine Screen U Marijuana (THC) Screen Microbiology Microbiology Results: Microbiology 05/18/21 18:25 Blood - Venous Blood Culture - Preliminary No growth after 24 hours. 05/18/21 18:12 Blood - Venous Blood Culture - Preliminary No growth after 24 hours. Progress Note: A&P Assessment and plan (1) Diabetes mellitus: Status: Acute (2) Opioid dependence: Status: Acute (3) Pulmonary congestion: Status: Acute (4) Acute on chronic respiratory failure with hypoxia and hypercapnia: Status: Acute (5) Asthma-COPD overlap syndrome: Status: Acute Plan Assessment: 51-year-old lady with underlying obesity, obesity hyperventilation, COPD /asthma, opioid dependence admitted with acute on chronic hypoxic and hypercapnic respiratory failure requiring BiPAP support likely secondary to pulmonary edema. Plan: Neuro: No acute issues. Cardiac: Possible underlying acute congestive heart failure. 2D echocardiogram is pending. Pulmonary: Acute on chronic hypoxic and hypercapnic respiratory failure now requiring BiPAP support. Continue to titrate off as tolerated. Continue with IV acetazolamide. Underlying obesity / obesity hyperventilation syndrome on nocturnal noninvasive positive pressure ventilation at home. Renal: No acute issues. Endo: No acute issues. Underlying diabetes mellitus. GI: No acute issues. ID: No acute issues Heme/Onc: No acute issues. Psych: No acute issues. Miscellaneous: No acute issues. Prophylaxis: Heparin Diet: n. p.o. while on BiPAP Critical care time spent: 45 minutes Quality Stroke Does the patient have a stroke diagnosis?: No VTE Prior VTE?: No VTE Risk Level:: Medical - moderate - high VTE Device Contraindication: Treatment Not Indicated VTE Drug Contraindication: N/A - Med Ordered
[2021-05-20] MEDS: methADONE HCl 20 MG/2 ML ORAL.CONC 50 MG PO (10:23)
[2021-05-20] MEDS: predniSONE 20 MG TABLET 40 MG PO (10:24)
[2021-05-20] MEDS: acetaZOLAMIDE sodium 500 MG VIAL IVPUSH ×2 (10:26→22:06)
[2021-05-20] MEDS: LORazepam 2 MG/ML VIAL 1 MG IVPUSH (10:52)
[2021-05-20] MEDS: dilTIAZem HCL CD 180 MG CAP.ER.24H PO (10:53)
[2021-05-20 11:30] LABS: D Dimer High Sensitivity < 150 NG/ML
[2021-05-20 11:39] LABS: Glucose, Whole Blood 115 mg/dL (60-115)
--- NOTE | 2021-05-20 15:31 | MHC.CM.PN ---
Attempted to meet with patient in regards to discharge planning. Patient currently sleeping. No family present. Attempted to reach patient primary contact, Latonia via telephone at [phone]. Left voicemail requesting return telephone call. Case management assessment completed using medical record. Patient is from home with [facility]. 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 PCP is Dr Benavides. Copy of HCP verified to be on file. Unable to verify vaccine status at this time. Anticipate patient will return home with services when medically stable. Continue to monitor for d/c needs.
[2021-05-20] MEDS: Insulin Lispro 100 UNIT/ML 3 ML VIAL SUBCUT (17:53)
[2021-05-20 18:01] LABS: Glucose, Whole Blood 174 mg/dL (60-115)
[2021-05-20] MEDS: Enoxaparin Sodium 40 MG/0.4 ML SYRINGE SUBCUT (22:06)
[2021-05-21] VITALS (19 sets, daily range): BP systolic 123–157; BP diastolic 67–116; PULSE 16–122; RESP 14–28; TEMP 36.5–37.2; O2SAT 90–104; BMI 37.7
[2021-05-21 01:32] LABS: Glucose, Whole Blood 81 mg/dL (60-115)
[2021-05-21] MEDS: LORazepam 2 MG/ML VIAL 1 MG IVPUSH ×2 (05:12→10:08)
[2021-05-21] MEDS: Albuterol/Iprat 2.5/0.5MG 3 ML AMPUL.NEB INHALE ×3 (05:14→23:04)
[2021-05-21] MEDS: Acetaminophen 325 MG TABLET 650 MG PO (05:17)
[2021-05-21 05:48] LABS: MANUAL DIFF FLAG NO
[2021-05-21 05:49] LABS: VBG Base Excess 7.3 mmol/L; VBG HCO3 32 mmol/L (22-26); VBG pCO2 49 mmHg; VBG pH 7.43 (7.32-7.43); VBG pO2 66 mmHg
[2021-05-21 05:51] LABS: Venous Blood Gas Refer to POC result
[2021-05-21 05:52] LABS: Basophils Percent Auto 0.1 % (0-2); Eosinophils Percent Auto 0.2 % (0-4); Imm Gran Abs Auto 0.07 X10*3/uL (0.00-0.03); Imm Gran Pct Auto 0.5 % (0.0-0.4); Lymphocytes Absolute Auto 1.4 X10*3/uL (1.2-4.9); Lymphocytes Percent Auto 10.5 % (20-40); Mean Corpuscular HGB Conc 30.4 g/dl (31.0-35.0); Mean Corpuscular Hemoglobin 30.5 pg (27.0-33.0); Mean Corpuscular Volume 100.2 fL (80.0-98.0); Mean Platelet Volume 9.8 fL (9.4-12.3); Neutrophils Absolute Auto 11.1 x10*3/uL (2.0-8.3); Neutrophils Percent Auto 81.7 % (45-73); Platelet Count 288 X10*3/uL (160-400); Red Blood Count 4.59 X10*6/uL (4.20-5.50); Red Cell Distribution Width 12.7 % (11.0-16.0); White Blood Count 13.7 X10*3/uL (4.8-10.8)
[2021-05-21 06:13] LABS: Glucose, Whole Blood 88 mg/dL (60-115)
[2021-05-21 06:13] LABS: Albumin Level 3.6 g/dL (3.5-5.0); Anion Gap 16 (12-20); Blood Urea Nitrogen 30 mg/dL (9-16); Calcium 9.5 mg/dL (8.4-10.2); Carbon Dioxide 28 mmol/L (22-29); Chloride 103 mmol/L (96-108); Creatinine Clr Calc Pharmacy 105.7; Estimated Glomerular Filt Rate > 60; Glucose Random 79 mg/dL (60-115); Magnesium 2.2 mg/dL (1.6-2.6); Phosphorus 3.8 mg/dL (2.7-4.5); Potassium 3.5 mmol/L (3.3-5.1); Sodium 143 mmol/L (135-145)
--- NOTE | 2021-05-21 07:00 | CA_ITS ---
Transthoracic Echocardiogram Patient (Last, First, Middle): Anju Tanner I Gender: Female Date of : 1970 Age: 51 Procedure Date: 05/21/2021 Procedure Type: Transthoracic Echocardiogram Location: ICU Height: 154.94 cm Weight: 93.9 kg BSA: 1.92 m2 Heart Rate: bpm BP: 138 / 91 mmHg Patrol Guard: PANTERA Referring MD: Shaniqua Sabillon NP Gutter Mouth Cutter: Keyur Vivas MD Symptoms: copd exac/ Congestion on xray Study Quality: Technically Difficult ECG Rhythm: Sinus tachycardia Conclusions: - 1. Technically very limited study to evaluate for cardiac function and structure, consider AURELIANO if clinically indicated 2. On some views LV systolic function appears to be greater than 60% Findings Left Ventricle Normal left ventricular cavity size. Regional wall motion abnormalities can not be excluded due to suboptimal endocardial definition. on some views LV systolic function appears to be greater than 60%. However given poor quality study accurate estimation of LV systolic and diastolic function is not possible on this study Right Ventricle The right ventricle was not well visualized. Normal right ventricular cavity size. Atria The left atrium was not well visualized. Interatrial shunt cannot be excluded. The right atrium was not well visualized. Aortic Valve The aortic valve was not well visualized. Mitral Valve The mitral valve was not well visualized. Pulmonic Valve The pulmonic valve was not well visualized. Tricuspid Valve The tricuspid valve was not well visualized. Tricuspid regurgitation envelope is inadequate for calculation of right ventricular systolic pressure. Great Vessels The aorta was not well visualized. Venous The inferior vena cava was not well visualized. Pericardium/Pleural The pericardium was not well visualized. Recommendations, Care & Conclusions Consider a AURELIANO if clinically appropriate. Measurements Mitral Valve MV Pk E: 0.69 MV PK A: 1.22 MV Decel Time: 162.00 E/A: 0.60 E'Lateral: 9.46 E'Medial: 6.96 E/E' Med: 9.90 E/E' Lat: 7.30 PHT: 47.00 MVA PHT: 4.68 Decel [place]: 4.23 Diastolic Function MV Pk E: 0.69 MV Pk A: 1.22 E/A: 0.60 E'Medial: 6.96 E/E' Med: 9.90 E' Laterial: 9.46 E/E' Lat: 7.30 Updated in Other Vendor System with Status of Final Keyur Vivas MD electronically signed on 05/21/2021 10:39:49 AM with status of Final
[2021-05-21] MEDS: dilTIAZem HCL CD 180 MG CAP.ER.24H PO (08:53)
[2021-05-21] MEDS: predniSONE 20 MG TABLET 40 MG PO (08:53)
[2021-05-21] MEDS: acetaZOLAMIDE sodium 500 MG VIAL IVPUSH (08:53)
[2021-05-21] MEDS: Potassium Chloride Packet 20 MEQ PACKET 40 MEQ PO (08:53)
[2021-05-21] MEDS: methADONE HCl 20 MG/2 ML ORAL.CONC 50 MG PO (08:53)
--- NOTE | 2021-05-21 09:19 | P.PNCC_ITS ---
Subjective Subjective Date of Service: 05/21/21 Interval History: Ms. Radu Larios was admitted to ICU on May 18 bec of [id number] hypoxemic and hypercapnic respiratory failure. The patient is a 51-year-old lady with PMHx of morbid obesity, asthma/ COPD, obesity hypoventilation syndrome, on 2 L of supplemental oxygen and nocturnal BiPAP at home, hypogammaglobulinemia on IVIG, opioid dependence on methadone, diabetes mellitus, and HTN. Echo done on 08/21/20 was technically difficult, but what was seen was essentially normal, with no evidence of diastolic dysfxn.? Right ventricle was normal in size and function, IVC was normal, and RVSP was 36mm. She presented to the ED on 05/18/2021 with dyspnea and hypoxemia requiring BiPAP support.? On ER evaluation, noted to be in acute on chronic hypoxic and hypercapnic respiratory failure thought likely secondary to pulmonary edema 2? congestive heart failure, based on edema and her CXR, altho her BNP was normal.? Has no previous dx of CHF.? She was admitted to ICU, started on Diamox, and diuresed.? She?s negative 4 Liters.? BUN was pushed up from 11 to 30, with normal creat.? Repeat echo is pending. On exam this morning, she is awake, breathing easy on BiPAP 18/6/25%, with RR 19, Vt 630cc, Ve 12L, Sat 99%.? I turned her FiO2 down to 21%, she?s Sat?ing 95%. ?No JVD at about 30?.? BS are diminished but clear, w normal exp phase.? Heart rate and rhythm are regular, with normal-sounding S1 and S2, with no mur mur or gallops.? She has trivial peripheral edema if any; in fact she?s wrinkled. LABORATORY DATA:? Below. IMPRESSION: 1. Underlying morbid obesity 2. Underlying obesity hypoventilation syndrome (based on blood gasses and chronically elevated serum bicarb). 3. Underlying asthma/COPD. 4. [id number] hypoxemic and hypercapnic respiratory failure.? Based on her previous echo and her normal BNPs, along with the fact that diuresis pushed her renal ratio up, I am guessing that she does not have congestive heart failure, either systolic or diastolic.? And lots of people, especially obese people, have edema unrelated to CHF.? Most likely this episode of acute on chronic respiratory failure was secondary to an asthma/COPD exacerbation.? But the repeat echo is pending.? Continue nighttime BiPAP. 5. COPD/asthma exacerbation.? Resolving/resolved.? Taper prednisone rapidly. 5. Chronic metabolic alkalosis.? Her venous pCO2 is now normal.? Base excess is elevated now bec of the diuresis.? D/C Diamox. 6. VERONIKA, with elevated renal ratio.? 2? diuresis.? And clinically she?s now dry.? Lasix was d/c?d. 7. Currently on methadone.? Which undoubtedly doesn?t help her OHS. 8. DM.? On Lantus and SS Lispro. Stable for transfer to [facility].? Will sign out to hospitalists. Critical Care Time (minutes): 0 Physical Exam Vital Signs: Vital Signs: Last Vital Signs Temp 98.6 F 05/21/21 09:00 Pulse 117 H 05/21/21 09:00 Resp 19 05/21/21 09:00 BP 129/98 H 05/21/21 09:00 Pulse Ox 100 05/21/21 09:00 BMI result Body Mass Index 37.7 Objective Data Labs CBC & Chem 7: 05/21/21 05:35 05/21/21 05:35 Labs: Laboratory Results - last 24 hr 05/20/21 05/20/21 05/20/21 10:17 11:04 11:33 WBC RBC Hgb Hct MCV MCH MCHC RDW Plt Count MPV Immature Gran % (Auto) Neut % (Auto) Lymph % (Auto) [place] % (Auto) Eos % (Auto) Baso % (Auto) Lymph # (Auto) [place] # (Auto) Eos # (Auto) Baso # (Auto) Abs Immat Gran (auto) Absolute Neuts (auto) Absolute Nucleated RBC Nucleated RBC % (auto) D-Dimer High Sensitivty < 150 VBG pH VBG pCO2 VBG pO2 VBG HCO3 VBG O2 Saturation VBG Base Excess Sodium Potassium Chloride Carbon Dioxide Anion Gap BUN Creatinine Estim Creat Clear Calc Estimated GFR POC Glucose 92 115 Random Glucose Calcium Phosphorus Magnesium Albumin 05/20/21 05/21/21 05/21/21 17:48 01:23 05:35 WBC 13.7 H RBC 4.59 Hgb 14.0 Hct 46.0 MCV 100.2 H MCH 30.5 MCHC 30.4 L RDW 12.7 Plt Count 288 MPV 9.8 Immature Gran % (Auto) 0.5 H Neut % (Auto) 81.7 H Lymph % (Auto) 10.5 L [place] % (Auto) 7.0 Eos % (Auto) 0.2 Baso % (Auto) 0.1 Lymph # (Auto) 1.4 [place] # (Auto) 1.0 Eos # (Auto) 0.0 Baso # (Auto) 0.0 Abs Immat Gran (auto) 0.07 H Absolute Neuts (auto) 11.1 H Absolute Nucleated RBC 0.000 Nucleated RBC % (auto) 0.0 D-Dimer High Sensitivty VBG pH VBG pCO2 VBG pO2 VBG HCO3 VBG O2 Saturation VBG Base Excess Sodium Potassium Chloride Carbon Dioxide Anion Gap BUN Creatinine Estim Creat Clear Calc Estimated GFR POC Glucose 174 H 81 Random Glucose Calcium Phosphorus Magnesium Albumin 05/21/21 05/21/21 05/21/21 05:35 05:42 06:09 WBC RBC Hgb Hct MCV MCH MCHC RDW Plt Count MPV Immature Gran % (Auto) Neut % (Auto) Lymph % (Auto) [place] % (Auto) Eos % (Auto) Baso % (Auto) Lymph # (Auto) [place] # (Auto) Eos # (Auto) Baso # (Auto) Abs Immat Gran (auto) Absolute Neuts (auto) Absolute Nucleated RBC Nucleated RBC % (auto) D-Dimer High Sensitivty VBG pH 7.43 VBG pCO2 49 VBG pO2 66 VBG HCO3 32 H VBG O2 Saturation 91.0 VBG Base Excess 7.3 Sodium 143 Potassium 3.5 Chloride 103 Carbon Dioxide 28 Anion Gap 16 BUN 30 H Creatinine 0.66 Estim Creat Clear Calc 105.7 Estimated GFR > 60 POC Glucose 88 Random Glucose 79 Calcium 9.5 Phosphorus 3.8 Magnesium 2.2 Albumin 3.6 Microbiology Microbiology Results: Microbiology 05/18/21 18:25 Blood - Venous Blood Culture - Preliminary No growth after 48 hours. 05/18/21 18:12 Blood - Venous Blood Culture - Preliminary No growth after 48 hours. Quality Stroke Does the patient have a stroke diagnosis?: No VTE Prior VTE?: No VTE Risk Level:: Medical - moderate - high VTE Device Contraindication: Treatment Not Indicated VTE Drug Contraindication: N/A - Med Ordered
--- NOTE | 2021-05-21 10:33 | MHC.CM.PN ---
Patient has been transferred from ICU to [facility] this am.
[2021-05-21] MEDS: Albuterol Sulfate (0.083%) 2.5 MG/3 ML VIAL.NEB INHALE (11:06)
[2021-05-21 11:25] LABS: Glucose, Whole Blood 209 mg/dL (60-115)
[2021-05-21] MEDS: Insulin Lispro 100 UNIT/ML 3 ML VIAL SUBCUT ×2 (12:13→17:27)
--- NOTE | 2021-05-21 15:34 | PC.NURSE ---
report given to Pratibha. Informed her of patient need to void by 4-6pm. Patient resting comfortably/sleeping at this time on 2LNC.
[2021-05-21 16:45] LABS: Glucose, Whole Blood 207 mg/dL (60-115)
[2021-05-21 19:37] LABS: Glucose, Whole Blood 191 mg/dL (60-115)
[2021-05-21] MEDS: Enoxaparin Sodium 40 MG/0.4 ML SYRINGE SUBCUT (20:22)
[2021-05-21 23:58] LABS: ABG Base Excess 7.5 mmol/L; ABG HCO3 36 mmol/L (22-26); ABG pCO2 68 mmHg (32-45); ABG pH 7.33 (7.35-7.45); ABG pO2 69 mmHg (83-108)
[2021-05-22] VITALS (13 sets, daily range): BP systolic 132–153; BP diastolic 67–94; PULSE 87–119; RESP 17–22; TEMP 36.5–37.1; O2SAT 91–100
[2021-05-22 00:57] LABS: Glucose, Whole Blood 168 mg/dL (60-115)
[2021-05-22 01:36] LABS: ABG Refer to POC result
[2021-05-22] MEDS: Albuterol/Iprat 2.5/0.5MG 3 ML AMPUL.NEB INHALE ×4 (06:44→23:59)
[2021-05-22 07:44] LABS: Glucose, Whole Blood 98 mg/dL (60-115)
[2021-05-22] MEDS: Insulin Glargine,Hum.rec.anlog 100 UNIT/ML 10 ML VIAL 20 UNIT SUBCUT (08:46)
[2021-05-22] MEDS: dilTIAZem HCL CD 180 MG CAP.ER.24H PO (08:47)
[2021-05-22] MEDS: methADONE HCl 20 MG/2 ML ORAL.CONC 50 MG PO (08:47)
[2021-05-22] MEDS: predniSONE 20 MG TABLET 40 MG PO (08:47)
[2021-05-22 11:35] LABS: Glucose, Whole Blood 235 mg/dL (60-115)
[2021-05-22] MEDS: Insulin Lispro 100 UNIT/ML 3 ML VIAL SUBCUT ×3 (12:26→20:24)
--- NOTE | 2021-05-22 13:13 | P.CDIC_ITS ---
CDI Concurrent Query Documentation Clarification: PHYSICIAN'S DOCUMENTATION REQUEST Date of Query: 05/22/21 1314 Patient Name: Anju Larios Admit Date: 05/18/21 Dear Doctor, A review of the medical record indicates additional documentation may be needed. Please review below and update the documentation accordingly. Clinical Indicators: The diagnosis of Severe Sepsis was documented on 05/18/21 but is not consistently noted in subsequent documentation. Risk Factors/Clinical Indicators/Treatments Per ED note 05/18/21, afebrile however she does meet severe sepsis criteria based on her COPD exacerbation, hypoxia and need for BiPAP.? WBC 11.5, likely chronic steroid LA .4 Please clarify the following: * Sepsis was present on admission and is now resolved * Sepsis was present on admission and is still being monitored, evaluated, or treated * Sepsis was ruled out * Sepsis is still a likely, suspected, probable diagnosis * Other (please specify) * Unable to determine Use of terms such as suspected, likely, concern for, or probable (associated with a specific diagnosis that is being evaluated, monitored, or treated as if it exists) are acceptable and can be coded in the inpatient setting, when documented at the time of discharge. Thank you, Felicity Bowman RN Extension: [phone] Please use your independent medical judgment in providing your response. THIS QUERY IS PART OF THE PERMANENT MEDICAL RECORD Provider Response: Other Other Diagnosis: no sepsis
--- NOTE | 2021-05-22 15:00 | HO.PM.IMPN ---
Subjective Subjective Date of Service: 05/22/21 Interval History: [id number] hypoxemic and hypercapnic respiratory failure. Review of Systems Still shortness of breath, talking in small sentences with short of breath Has cough, feels weak Denies any chest pain or abdominal pain or nausea vomiting or fever. Physical Exam Vital Signs: Vital Signs: Last Vital Signs Temp 98.3 F 05/22/21 11:11 Pulse 119 H 05/22/21 11:43 Resp 20 05/22/21 11:43 BP 153/90 H 05/22/21 11:11 Pulse Ox 92 05/22/21 11:11 BMI result Body Mass Index 37.7 Appearance: Alert.? Oriented X3.sob.? Eyes: Pupils equal, round and reactive to light.? cvs: rrr, [id number] , no murmur res: cair entry diminshed at bases, has wheezing abd: no rebound or guarding ,nt, bs present. ext pulses present , no cyanosis. neuro: axo3 , nonfocal. Objective Data Active Medications Albuterol Sulfate (Albuterol Sulfate (0.083%) 2.5 Mg/3 Ml Vial.Neb) 2.5 mg INHALE RQ4H PRN PRN Reason: Wheezing Last Admin: 05/21/21 11:06 Dose: 2.5 mg Documented by: RAHEL Albuterol/Ipratropium (Albuterol/Iprat 2.5/0.5mg 3 Ml Ampul.Neb) 3 ml INHALE RQ6H [facility] Last Admin: 05/22/21 11:42 Dose: 3 ml Documented by: JAYE Diltiazem HCl (Diltiazem Hcl Cd 180 Mg Cap.Er.24h) 180 mg PO DAILY [facility]; Protocol Last Admin: 05/22/21 08:47 Dose: 180 mg Documented by: HEIDE Enoxaparin Sodium (Enoxaparin Sodium 40 Mg/0.4 Ml Syringe) 40 mg SUBCUT Q24H [facility] Last Admin: 05/21/21 20:22 Dose: 40 mg Documented by: NAYE Insulin Glargine (Insulin Glargine,Hum.Rec.Anlog 100 Unit/Ml 10 Ml Vial) 20 unit SUBCUT DAILY [facility] Last Admin: 05/22/21 08:46 Dose: 20 unit Documented by: HEIDE Insulin Human Lispro (Insulin Lispro 100 Unit/Ml 3 Ml Vial) 0 unit SUBCUT QIDACHS [facility]; Protocol Last Admin: 05/22/21 12:26 Dose: 4 unit Documented by: HEIDE Lorazepam (Lorazepam 2 Mg/Ml Vial) 1 mg IVPUSH Q4H PRN PRN Reason: Anxiety Last Admin: 05/21/21 10:08 Dose: 1 mg Documented by: DARCY Methadone HCl (Methadone Hcl 20 Mg/2 Ml Oral.Conc) 50 mg PO DAILY [facility] Last Admin: 05/22/21 08:47 Dose: 50 mg Documented by: HEIDE Methylprednisolone Sodium Succinate (Methylprednisolone Sod Succ 40 Mg/Ml Vial) 40 mg IVPUSH Q12H [facility] Labs CBC & Chem 7: 05/21/21 05:35 05/21/21 05:35 Labs: Laboratory Results - last 24 hr 05/21/21 05/21/21 05/21/21 16:38 19:30 23:50 O2 Saturation 89.0 ABG pH at Pt Temp 7.33 L ABG pCO2 at Pt Temp 68 H* ABG pO2 at Pt Temp 69 L ABG HCO3 36 H ABG Base Excess (Actual) 7.5 POC Glucose 207 H 191 H 05/22/21 05/22/21 05/22/21 00:46 07:07 11:09 O2 Saturation ABG pH at Pt Temp ABG pCO2 at Pt Temp ABG pO2 at Pt Temp ABG HCO3 ABG Base Excess (Actual) POC Glucose 168 H 98 235 H Assessment and Plan (1) Acute on chronic respiratory failure with hypoxia and hypercapnia: Status: Acute Plan 1. [id number]-tl-[id number] hypoxemic and hypercapnic respiratory failure.sec? Most likely this episode of acute on chronic respiratory failure was secondary to an asthma/COPD exacerbation.? But the repeat echo is pending.? Continue nighttime BiPAP. continue nebs , iv steriods , oxygen supprt. ?2.. Chronic metabolic alkalosis.? Her venous pCO2 is now normal.? Base excess is elevated now bec of the diuresis.? D/C Diamox. ?3.. prerenal azotemeia with elevated renal ratio.? 2? diuresis.? And clinically she?s now dry.? off diuretics . ?4.. Currently on methadone.? Which undoubtedly doesn?t help her OHS. ?5. DM.? On Lantus and SS Lispro. 6. Htn: Patient start back on diltiazem, lisinopril. 7.dvt prophylax: s/c lovenox. Quality Stroke Does the patient have a stroke diagnosis?: No VTE Prior VTE?: No VTE Risk Level:: Medical - moderate - high VTE Device Contraindication: Treatment Not Indicated VTE Drug Contraindication: N/A - Med Ordered
[2021-05-22] MEDS: lisinopriL 20 MG TABLET PO (15:47)
[2021-05-22 16:00] LABS: Glucose, Whole Blood 234 mg/dL (60-115)
[2021-05-22] MEDS: methylPREDNISolone Sod Succ 40 MG/ML VIAL IVPUSH (17:19)
[2021-05-22 20:07] LABS: Glucose, Whole Blood 217 mg/dL (60-115)
[2021-05-22] MEDS: Enoxaparin Sodium 40 MG/0.4 ML SYRINGE SUBCUT (20:24)
[2021-05-23 03:10] VITALS: BP 141/77; PULSE 86; RESP 17; TEMP 36.5; O2SAT 93
[2021-05-23 04:52] VITALS: PULSE 86; RESP 16; O2SAT 93
[2021-05-23] MEDS: Albuterol/Iprat 2.5/0.5MG 3 ML AMPUL.NEB INHALE ×2 (05:48→11:29)
[2021-05-23] MEDS: methylPREDNISolone Sod Succ 40 MG/ML VIAL IVPUSH (05:55)
[2021-05-23 06:02] VITALS: PULSE 95; RESP 16; O2SAT 96
[2021-05-23 07:09] LABS: Glucose, Whole Blood 196 mg/dL (60-115)
[2021-05-23 07:16] VITALS: BP 161/84; PULSE 94; RESP 15; TEMP 36.8; O2SAT 97
[2021-05-23] MEDS: dilTIAZem HCL CD 180 MG CAP.ER.24H PO (07:43)
[2021-05-23] MEDS: Insulin Lispro 100 UNIT/ML 3 ML VIAL SUBCUT ×2 (07:44→11:47)
[2021-05-23] MEDS: methADONE HCl 20 MG/2 ML ORAL.CONC 50 MG PO (07:44)
[2021-05-23] MEDS: Insulin Glargine,Hum.rec.anlog 100 UNIT/ML 10 ML VIAL 20 UNIT SUBCUT (07:44)
[2021-05-23 11:29] VITALS: PULSE 94; RESP 20; O2SAT 97
[2021-05-23 11:30] LABS: Glucose, Whole Blood 234 mg/dL (60-115)
[2021-05-23] MEDS: predniSONE 20 MG TABLET 40 MG PO (11:47)
[2021-05-23 12:00] VITALS: BP 153/88; PULSE 96; RESP 18; O2SAT 98
--- NOTE | 2021-05-23 12:07 | PM.DS ---
DS: Providers Provider Date of Service: 05/23/21 Date of admission: 05/18/21 20:19 Primary care physician: Kelli Benavides MD DS: Diagnosis Discharge Diagnosis (1) Acute on chronic respiratory failure with hypoxia and hypercapnia: Status: Acute DS: Summary Hospital Course Hospital Course: 51-year-old woman with a past medical history of asthma COPD overlap syndrome (on 30mg of prednisone daily, chronic? hypercarbic and hypoxic respiratory failure currently on 2l via [place] home oxygen,? diabetes mellitus, hypertension, hyperlipidemia, tobacco use, and Hypogammaglobulinemia on IVIG, also recently seen in the emergency room on 05/17/21? for gastritis and given IV fluids and sent home. Today she presented to the emergency room? via EMS? due to dyspnea.? Patient reports she has been short of breath for the past 2 days, worsening today. ? EMS report patient O2 saturation 76%? on her chronic 2 L via nasal cannula require CPAP support en route? to the hospital.? ? In the emergency room,? it was noted patient was wheezing and complaining of SOB.? ABGs 7.//83/55.? She was placed on BiPAP.? ?Imaging:? ?Chest x-ray did show some congestion ?ED course:? patient received? albuterol, methylprednisolone 125,? Zosyn and Diamox ? Patient will be admitted? to the ICU for management of acute hypercapnic respiratory failure? requiring BiPAP support. Hospital course: Patient was admitted for acute on chronic hypoxemic/hypercarbic respiratory failure: Treated with IV steroids, nebs, also received trial of diuretics but discontinued afterwards thought to be less likely CHF beucause bnp normal , echo has ef 60%, patient does not have leg edema . Patient was switched to p.o. steroids, continue home COPD medications. Leukocytosis improving, probably related to steroids. Blood cultures negative at 48 hours, patient has dry cough but no phlegm. She says that cough is chronic. Chest x-ray finding seems similar to April cxr seems like probably has a component of interstitial lung disease also in addition to COPD discussed with Dr Dillard. Please follow-up with Dr. Brito out patiently for further management. Patient advised strongly to use her nebs, BiPAP, take home medications and follow up with pulmonary rehab. Diabetes: Fingersticks are running 160-200 range, Lantus was adjusted in ICU will continue current Lantus dose. she says she goes [facility] with her pulmonary. Above management discussed with the patient in detail length( with the help of cosmetic counselor) she understand and in agreement with the above plan, time spent 50 minutes and 50% time spent on counseling. Significant findings: As above. Procedures performed: None. Treatment and response: As above. Complications: None. Time Spent with Patient Time attestation: Total time spent providing and/or coordinating discharge services: Discharge coordination time: Greater than 30 minutes Quality: Stroke Does the patient have a stroke diagnosis?: No Physical Exam Vital Signs: Vital Signs: Last Vital Signs Temp 98.3 F 05/23/21 07:16 Pulse 96 05/23/21 12:00 Resp 18 05/23/21 12:00 BP 153/88 H 05/23/21 12:00 Pulse Ox 98 05/23/21 12:00 BMI result Body Mass Index 37.7 Appearance: Alert.? Oriented X3.sob.? Eyes: Pupils equal, round and reactive to light.? cvs: rrr, [id number] . res: fair entry fair , no rales or wheezing abd: no rebound or guarding ,nt, bs present. ext pulses present , no cyanosis, no edema. neuro: axo3 , nonfocal. DS: Data Data Completed and Pending Completed studies during hospitalization [Text1]: Procedures Assistance with Respiratory Ventilation, Less than 24 Consecutive Hours, Continuous Positive Airway Pressure (02/21/21) Labs on day of discharge: Laboratory Results - last 24 hr 05/22/21 05/22/21 05/23/21 15:55 20:02 07:04 POC Glucose 234 H 217 H 196 H 05/23/21 11:25 POC Glucose 234 H Preliminary micro results at discharge 05/18/21 18:25 Blood Culture - Preliminary Blood - Venous No growth after 48 hours. 05/18/21 18:12 Blood Culture - Preliminary Blood - Venous No growth after 48 hours. ? 05/21/21 05/21/21 05/21/21 ? 16:38 19:30 23:50 O2 Saturation ? ? ?89.0 ABG pH at Pt Temp ? ? ?7.33 L ABG pCO2 at Pt Temp ? ? ?68 H* ABG pO2 at Pt Temp ? ? ?69 L ABG HCO3 ? ? ?36 H ABG Base Excess (Actual) ? ? ?7.5 POC Glucose ?207 H ?191 H ? ? 05/22/21 05/22/21 05/22/21 ? 00:46 07:07 11:09 O2 Saturation ? ? ? ABG pH at Pt Temp ? ? ? ABG pCO2 at Pt Temp ? ? ? ABG pO2 at Pt Temp ? ? ? ABG HCO3 ? ? ? ABG Base Excess (Actual) ? ? ? POC Glucose ?168 H ?98 ?235 H Additional Comments Additional comments: XR/XR chest 1V IMPRESSION: Further increased diffuse bilateral interstitial prominence. This could represent interstitial pulmonary edema or an infectious or inflammatory process such as bronchitis or viral pneumonitis. echo: Conclusions: - 1. Technically very limited study to evaluate for cardiac? ? ? function and structure, consider AURELIANO if clinically indicated ? ? 2. On some views LV systolic function appears to be greater than 60%? Findings Left Ventricle Normal left ventricular cavity size.? Regional wall motion abnormalities can not be excluded due to suboptimal endocardial definition.? on some views LV systolic function appears to be greater than 60%.? However given poor quality study accurate estimation of LV systolic and diastolic function is not possible on this study Discharge Plan Discharge Patient Disposition: Home Health Service Discharge Diagnosis: Acute on chronic hypoxemic respiratory failure secondary to COPD exacerbation. Referrals: [facility] [Outside] - 1 Week Allan Brito MD [Physician] - 1 Week (follow up outpatiently) Kelli Benavides MD [Primary Care Provider] - 1 Week Discharge Medications: New prednisone 20 mg Tablet 40 mg PO DAILY Qty: 6 0RF Continued tiotropium bromide [Spiriva with HandiHaler] 18 mcg capsule, w/inhalation device 1 cap inhalation DAILY Qty: 30 11RF immun glob [id number] 0-50 10 gram recon soln 40 g IV Q4W Qty: 2 12RF ipratropium-albuterol 0.5 mg-3 mg(2.5 mg base)/3 mL solution for nebulization 3 ml inhalation Q4H PRN (Reason: for wheezing) Qty: 540 6RF sodium chloride 3 % solution for nebulization 4 ml inhalation BID Qty: 240 3RF gabapentin 100 mg capsule 1 cap PO BID 0RF Lantus U-100 Insulin 100 unit/mL solution 45 unit subcut BEDTIME 0RF diltiazem HCl [Tiadylt ER] 360 mg capsule,extended release 24 hr 1 cap PO DAILY 0RF rosuvastatin 5 mg tablet 1 tab PO BEDTIME 0RF Daliresp 500 mcg tablet 1 tab PO DAILY 0RF lidocaine 5 % adhesive patch,medicated 1 patch topical DAILY 0RF insulin lispro [Humalog U-100 Insulin] 100 unit/mL solution See Protocol sliding scale dose subcut TIDAC 0RF Protocol: Insulin Correction Scale Less than or equal to 110 ---- Give (units): 0 111 to 150 Give (units): 0 151 to 200 Give (units): 2 201 to 250 Give (units): 4 251 to 300 Give (units): 6 301 to 350 Give (units): 8 Greater than 350 Give (units): 10 Call MD if Blood Glucose > : 350 lisinopril 20 mg tablet 20 mg PO DAILY Qty: 30 0RF metformin 500 mg tablet extended release 24 hr 2 tab PO BID 0RF prednisone 10 mg tablet 20 mg PO DAILY 0RF prednisone 10 mg tablet 10 mg PO BEDTIME 0RF Arnoldo-24 400 mg capsule,extended release 24hr 400 mg PO BID 0RF montelukast 10 mg tablet 10 mg PO BEDTIME 0RF albuterol sulfate [ProAir HFA] 90 mcg/actuation HFA aerosol inhaler 2 puff inhalation Q4H PRN (Reason: Shortness Of Breath Or Wheezing) 0RF loratadine [Claritin] 10 mg tablet 10 mg PO DAILY 0RF methadone 10 mg tablet 49 mg PO DAILY 0RF Label Comments: PT PROVIDED DIFFERENT DOSE THAN IS LISTED IN THE SYSTEM, AWAITING [facility]AGE FROM [facility] [Natural Senna Laxative] 8.6 mg tablet 8.6 mg PO BEDTIME PRN (Reason: constipation) Qty: 30 3RF Brovana 15 mcg/2 mL solution for nebulization 2 ml inhalation Q12H 30 Days Qty: 120 11RF budesonide 0.5 mg/2 mL suspension for nebulization 0.5 mg inhalation BID Qty: 120 11RF omeprazole 40 mg capsule,delayed release(DR/EC) 40 mg PO DAILY 30 Days Qty: 30 3RF Changed Lantus U-100 Insulin 100 unit/mL solution 20 unit subcut BEDTIME Qty: 0 0RF Discharge Orders: Discharge Order (Routine); Ordered 05/23/21 Ordered By: Marielos Guillermo Diet: advance to usual diet, diabetic diet, low fat, low cholesterol and low salt diet Activity on Discharge: As tolerated Stand Alone Forms: Patient Portal Discharge page Care Plan Goals: Patient was admitted for acute on chronic hypoxemic/hypercarbic respiratory failure: Treated with IV steroids, nebs, also received trial of diuretics but discontinued afterwards thought to be less likely CHF. Patient was switched to p.o. steroids, continue home COPD medications. Leukocytosis improving, probably related to steroids. Blood cultures negative at 48 hours, patient has dry cough but no phlegm. She says that cough is chronic. Chest x-ray finding seems similar to April seems like probably has a component of interstitial lung disease also in addition to COPD. Please follow-up with Dr. Brito out patiently for further management. Diabetes: Fingersticks are running 160-200 range, Lantus was adjusted in ICU will continue current Lantus dose. she [facility]. Health Concerns: As above. Plan of Treatment: As above. Assessment: As above.
--- NOTE | 2021-05-23 12:18 | MHC.CM.PN ---
Patient has been medically cleared for dc to home today, with services. Patient is active with Nancy GARCIA, who has been notified via [email or web address] of today's dc and dc summary has been sent as well.
--- NOTE | 2021-05-23 12:30 | MHC.CM.PN ---
DC summary has been successfully faxed to [employer] and uploaded into [employer]
== END 2021-05-23 13:56 | disposition home health service (06) | DRG 140 ==
LOC: HO.ED 20:30 → HO.EDOVER 20:46 → HO.ICU 21:10 → HO.IMC 05-21 09:39
PROVIDERS: Internal Medicine; Registered Nurse Community Health; Admitting Provider Internal Medicine Pulmonary Disease; Emergency Provider Emergency Medicine Emergency Medical Services; PCP Family Medicine; Visit Provider Internal Medicine
DX: J44.1 Chronic obstructive pulmonary disease with (acute) exacerbation (principal); J96.21 Acute and chronic respiratory failure with hypoxia; E87.3 Alkalosis; E66.2 Morbid (severe) obesity with alveolar hypoventilation; J45.901 Unspecified asthma with (acute) exacerbation; N17.9 Acute kidney failure, unspecified; F17.210 Nicotine dependence, cigarettes, uncomplicated; Z99.81 Dependence on supplemental oxygen; D72.829 Elevated white blood cell count, unspecified; Z68.37 Body mass index [BMI] 37.0-37.9, adult; F11.20 Opioid dependence, uncomplicated; J96.22 Acute and chronic respiratory failure with hypercapnia; Z71.6 Tobacco abuse counseling; Z20.822 Contact with and (suspected) exposure to COVID-19; Z79.1 Long term (current) use of non-steroidal anti-inflammatories (NSAID); Z79.4 Long term (current) use of insulin; Z79.52 Long term (current) use of systemic steroids; Z79.899 Other long term (current) drug therapy
CPT/HCPCS: 36415; 36600; 71045; 80048; 80053; 80307; 81003; 82040; 82803; 82947; 83605; 83690; 83735; 83880; 84100; 84484; 85025; 85379; 87040; 87635; 93005; 93308; 94644; 94660; 96365; 96375; 97162; 99285; 99291; J1650; J2060; J2543; J2920; J2930; J3010

== ENCOUNTER 2021-05-24 15:25 | Outpatient (REF) | payer MEDICAID, SELFPAY ==
--- NOTE | ~2021-05-24 | US_ITS ---
EXAMINATION: US VENOUS ULTRASOUND WITH DOPPLER LOWER EXTREMITY, RIGHT CLINICAL INFORMATION: This is a 51-year-old female with right leg pain. Possible deep vein thrombosis. COMPARISON: None TECHNIQUE: Ultrasound of the deep veins is performed from the hip to the calf with compression sonography and color and pulse Doppler assessment. Spectral analysis with color-flow imaging is performed. FINDINGS: There is normal venous compression and respiratory variation and augmented flow. The visualized common femoral vein, superficial femoral vein, profunda femoral vein, popliteal vein, and the trifurcation region shows no evidence of deep venous thrombosis. There is no significant popliteal fossa cyst. If the patient's symptoms persist, followup ultrasound in 5 days 7 days might be of value to exclude proximal propagation from a non-visualized calf vein. US/US venous duplex LE RT IMPRESSION: No DVT demonstrated in the right lower extremity.
== END 2021-05-24 15:26 | disposition home or self-care (01) ==
LOC: HO.US 15:25
PROVIDERS: Visit Provider Hospitalist
DX: M79.89 Other specified soft tissue disorders (principal); M79.604 Pain in right leg
CPT/HCPCS: 93971

== ENCOUNTER 2021-06-06 13:55 | Inpatient (IN) | payer MEDICAID, SELFPAY ==
[2021-06-06] VITALS (19 sets, daily range): BP systolic 110–164; BP diastolic 57–93; PULSE 103–121; RESP 15–22; O2SAT 89–99; BMI 38.5
--- NOTE | ~2021-06-06 | XR_ITS ---
EXAMINATION: XR CHEST CLINICAL INFORMATION: Dyspnea COMPARISON: Previous chest x-ray most recent May 2021 TECHNIQUE: Frontal view of the chest was obtained. FINDINGS: The cardiac silhouette is enlarged. The lung volumes are low. The lungs are clear. There are multiple bilateral rib fractures of varying ages. There is no pleural effusion or pneumothorax. There is a rectangular radiopaque density that projects over the left medial lung base. This measures 0.5 x 2.5 cm. This is new from previous exam. This is of uncertain etiology. XR/XR chest 1V IMPRESSION: Enlarged cardiac silhouette. Low lung volumes. Multiple bilateral rib fractures of varying ages. New 2.5 x 0.5 cm rectangular shaped radiopaque density that projects over the left medial chest of uncertain etiology.
--- NOTE | 2021-06-06 13:57 | ECG_ITS ---
Test Reason : dyspnea Blood Pressure : / mmHG Vent. Rate : 121 BPM Atrial Rate : 121 BPM P-R Int : 128 ms QRS Dur : 074 ms QT Int : 330 ms P-R-T Axes : 055 038 037 degrees QTc Int : 468 ms Poor data quality Sinus tachycardia Otherwise normal ECG When compared with ECG of 18-MAY-2021 17:50, Vent. rate has increased BY 44 BPM Referred By: Lucila Aguirre Electronically Signed By:TRISTAN CASTREJON MD
--- NOTE | 2021-06-06 13:59 | ED_ITS ---
HPI - Asthma General Chief Complaint: Dyspnea Stated Complaint: DIFF BREATHING Time Seen by Provider: 06/06/21 13:57 Source: patient and old records reviewed Mode of arrival: EMS Limitations: no limitations History of Present Illness HPI Narrative: EMS found patient in 70s at home, she still smokes, O2 and steroid dependent EMS did not give treatment en route put her up to 7L NC the patient upon my arrival to room was telling EMS that's too much oxygen, you're going to make my CO2 high. She then proceeded to ask me for her home bipap settings complaint: shortness of breath and wheezing Onset (ago): day(s) (yesterday ) Severity: severe and similar to prior Context: smoke exposure Associated symptoms: dry cough Asthma History: childhood onset, history of frequent attacks, history of prior ED visit and previously intubated Treatments Prior to Arrival: inhaled bronchodilator, oxygen and CPAP (uses it during day and at night) Related Data Home Medications Medication Instructions Recorded Confirmed albuterol sulfate 90 mcg/actuation 2 puff INHALATION Q4H PRN 12/30/19 06/06/21 aerosol inhaler (ProAir HFA) loratadine 10 mg tablet (Claritin) 10 mg PO DAILY 12/30/19 06/06/21 methadone 10 mg tablet 49 mg PO DAILY 12/30/19 02/21/21 montelukast 10 mg tablet 10 mg PO BEDTIME 12/30/19 06/06/21 gabapentin 100 mg capsule 1 cap PO BID 10/14/20 06/06/21 diltiazem HCl 360 mg capsule,24 1 cap PO DAILY 11/16/20 05/18/21 hr,extended release (Tiadylt ER) roflumilast 500 mcg tablet 1 tab PO DAILY 11/16/20 05/18/21 (Daliresp) rosuvastatin 5 mg tablet 1 tab PO BEDTIME 11/16/20 06/06/21 insulin lispro 100 unit/mL See Protocol SUBCUT TIDAC 12/14/20 06/06/21 subcutaneous solution (Humalog U-100 Insulin) lidocaine 5 % topical patch 1 patch TOPICAL DAILY 12/14/20 05/18/21 metformin 500 mg tablet,extended 2 tab PO BID 05/18/21 06/06/21 release 24 hr prednisone 10 mg tablet 10 mg PO BEDTIME 05/18/21 06/06/21 prednisone 10 mg tablet 20 mg PO DAILY 05/18/21 06/06/21 theophylline 400 mg 800 mg PO DAILY 05/18/21 06/06/21 capsule,extended release 24 hr (Arnoldo-24) Previous Rx's Medication Instructions Recorded tiotropium bromide 18 mcg capsule 1 cap INHALATION DAILY #30 inh 05/11/20 with inhalation device (Spiriva with HandiHaler) immune glob,gamma(IgG) 10 40 g IV Q4W #2 ea 06/16/20 aenp-[id number]-IgA 0 to 50 mcg/mL IV solution arformoterol 15 mcg/2 mL solution 2 ml INHALATION Q12H 30 Days #120 09/20/20 for nebulization (Brovana) ml budesonide 0.5 mg/2 mL suspension 0.5 mg (2 mL) INHALATION BID #120 09/20/20 for nebulization ml ipratropium 0.5 mg-albuterol 3 mg 3 ml INHALATION Q4H PRN #540 ml 10/30/20 (2.5 mg base)/3 mL nebulization soln sennosides 8.6 mg tablet (Natural 8.6 mg PO BEDTIME PRN #30 tab 11/24/20 Senna Laxative) sodium chloride 3 % for 4 ml INHALATION BID #240 ml 01/22/21 nebulization lisinopril 20 mg tablet 20 mg PO DAILY #30 tab 02/25/21 omeprazole 40 mg capsule,delayed 40 mg PO DAILY 30 Days #30 cap 05/14/21 release insulin glargine 100 unit/mL 20 unit (0.2 mL) SUBCUT BEDTIME #0 05/23/21 subcutaneous solution (Lantus ml U-100 Insulin) Allergies Allergy/AdvReac Type Severity Reaction Status Date / Time No Known Allergies Allergy Verified 05/14/21 09:46 [No Known Allergies*] Review of Systems Review of Systems: Constitutional : No Fever, No Chills ENT/Mouth : No Hoarseness, No sore throat, No Rhinorrhea Eyes: No Redness, No Discharge, No Vision Changes Cardiovascular : No Chest Pain, positive SOB, positive Dyspnea on Exertion, pos Edema Respiratory : positive Cough, No Sputum, positive Wheezing, Gastrointestinal : pos Nausea, No Vomiting, No Diarrhea, No abdominal Pain Genitourinary : No Dysuria, No Hematuria Musculoskeletal : No joint pain, No Myalgias Skin : No rash Neuro : No Weakness, No Numbness, No Headache Psych : No anxiety, depression Heme/Lymph: No Bruising, No Bleeding Endocrine : No Polyuria, No Polydipsia All other systems reviewed and are negative [facility] Past Medical History Attestation statement: The following information was validated with the patient. Source: old records reviewed Medical History Abdominal pain Asthma-COPD overlap syndrome Chronic respiratory failure Chronic respiratory failure COPD (chronic obstructive pulmonary disease) Diabetes mellitus Essential hypertension Hyperlipidemia, unspecified Hypogammaglobulinemia Limb swelling Poor dentition Tobacco abuse Type 2 diabetes mellitus with unspecified complications Surgical History H/O tubal ligation Family History Family History Father Diabetes Other Asthma Social History Social History Household Members: Family Household Members Other:: 3 Housing: Unknown / Unable to assess Unable to assess alcohol history related to: Unknown Alcohol intake: unknown Patient Tobacco Use Status: Former Tobacco user Tobacco use type: Cigarette Cigarettes Per Day: 1 Years Smoked: 35 Smoked in Last 30 Days: Yes e-Cigarette/Vaping Use: Currently Using Second Hand Smoke Exposure: No Use of substances other than those prescribed or required for medical reasons: No Substance Use Type: Former Substance User Advance Directives: Yes Advance Directives on File: Yes Advance Directives Date on File: 11/16/20 service: No Current occupational status: unemployed and disabled Physical Exam Vital Signs: Vital Signs: Last Vital Signs Pulse 115 H 06/06/21 16:10 Resp 18 06/06/21 16:10 BP 164/77 H 06/06/21 16:10 Pulse Ox 91 L 06/06/21 16:10 Oxygen Flow Rate 4 06/06/21 14:04 BMI result Body Mass Index 38.5 Appearance: Alert. Oriented X3. Moderate acute distress. Eyes: Pupils equal, round and reactive to light. ENT: Pharynx normal. Neck: Normal inspection. Neck supple. CVS: tachycardic heart rate and rhythm. Pulses normal. Respiratory: Moderate respiratory distress - tachypnea and retractions. Breath sounds decreased throughout with wheezes noted. Abdomen: Soft and non-tender. Skin: Skin warm and dry. Normal skin color. Normal skin turgor. Extremities: 1-2+ pitting lower extremity edema. No calf ttp Neuro: Oriented X 3. No motor deficit. No sensory deficit. Course Course Course Narrative: seems to be doing better at this time will continue to monitor and repeat ABG around 4pm no sig improvement on ABG, increased bipap rate patient seems more sleepy at this time though CO2 not much higher, will discuss with ICU Dr. Geller - he will admit patient to ICU at this time MDM - Asthma MDM Narrative Medical decision making narrative: 51 yo female with hx of COPd steroid and O2 dependent, GERD, pain control, HTN here with c/o worsening dyspnea and cough. At this time will need her home Bipap settings, hour long 10mg neb, IV steroids, CXR, labs, cultures, IV ceftriaxone given likely COPD exacerbation. ABG. Likely admit. Lab Data Result diagrams: 06/06/21 14:50 06/06/21 14:50 Labs: Lab Results 06/06/21 06/06/21 06/06/21 Range/Units 14:35 14:50 14:50 WBC 22.5 H (4.8-10.8) X10*3/uL RBC 4.56 (4.20-5.50) X10*6/uL Hgb 13.7 (12.0-16.0) g/dl Hct 47.0 (37.0-47.0) % MCV 103.1 H (80.0-98.0) fL MCH 30.0 (27.0-33.0) pg MCHC 29.1 L (31.0-35.0) g/dl RDW 12.6 (11.0-16.0) % Plt Count 315 (160-400) X10*3/uL MPV 9.0 L (9.4-12.3) fL Immature Gran % (Auto) 0.5 H (0.0-0.4) % Neut % (Auto) 93.1 H (45-73) % Lymph % (Auto) 3.8 L (20-40) % [place] % (Auto) 2.3 (2-11) % Eos % (Auto) 0.1 (0-4) % Baso % (Auto) 0.2 (0-2) % Lymph # (Auto) 0.9 L (1.2-4.9) X10*3/uL [place] # (Auto) 0.5 (0.1-1.2) X10*3/uL Eos # (Auto) 0.0 (0.0-0.4) X10*3/uL Baso # (Auto) 0.1 (0.0-0.2) X10*3/uL Abs Immat Gran (auto) 0.12 H (0.00-0.03) X10*3/uL Absolute Neuts (auto) 21.0 H (2.0-8.3) x10*3/uL Absolute Nucleated RBC 0.000 (0.0-0.012) X10*3/uL Nucleated RBC % (auto) 0.0 (0.0-0.2) /100WBC Smear Tech's Comments VERIFIED O2 Saturation 91.0 % ABG pH at Pt Temp 7.28 L (7.35-7.45) ABG pCO2 at Pt Temp 93 H* (32-45) mmHg ABG pO2 at Pt Temp 73 L (83-108) mmHg ABG HCO3 44 H (22-26) mmol/L ABG Base Excess (Actual) 12.4 mmol/L Sodium 139 (135-145) mmol/L Potassium 4.7 D (3.3-5.1) mmol/L Chloride 92 L (96-108) mmol/L Carbon Dioxide 41 H* D (22-29) mmol/L Anion Gap 11 L (12-20) BUN 18 H (9-16) mg/dL Creatinine 0.67 (0.5-1.4) mg/dL Estim Creat Clear Calc 102.9 Estimated GFR > 60 Random Glucose 208 H (60-115) mg/dL Lactic Acid (0.5-2.0) mmol/L Calcium 9.5 (8.4-10.2) mg/dL Magnesium 1.9 (1.6-2.6) mg/dL Total Bilirubin 0.6 (0.0-1.0) mg/dL Direct Bilirubin 0.2 (0.0-0.5) mg/dL AST 17 (5-31) U/L ALT 29 (0-31) U/L Alkaline Phosphatase 76 (39-117) U/L Troponin I High Sens (<3.5-17.0) ng/L B-Natriuretic Peptide (<100) pg/mL Total Protein 6.7 (6.5-8.0) g/dL Albumin 4.0 (3.5-5.0) g/dL COVID-19 (PAPO) (Negative) COVID-19 Clin Com 06/06/21 06/06/21 06/06/21 Range/Units 14:50 14:50 15:48 WBC (4.8-10.8) X10*3/uL RBC (4.20-5.50) X10*6/uL Hgb (12.0-16.0) g/dl Hct (37.0-47.0) % MCV (80.0-98.0) fL MCH (27.0-33.0) pg MCHC (31.0-35.0) g/dl RDW (11.0-16.0) % Plt Count (160-400) X10*3/uL MPV (9.4-12.3) fL Immature Gran % (Auto) (0.0-0.4) % Neut % (Auto) (45-73) % Lymph % (Auto) (20-40) % [place] % (Auto) (2-11) % Eos % (Auto) (0-4) % Baso % (Auto) (0-2) % Lymph # (Auto) (1.2-4.9) X10*3/uL [place] # (Auto) (0.1-1.2) X10*3/uL Eos # (Auto) (0.0-0.4) X10*3/uL Baso # (Auto) (0.0-0.2) X10*3/uL Abs Immat Gran (auto) (0.00-0.03) X10*3/uL Absolute Neuts (auto) (2.0-8.3) x10*3/uL Absolute Nucleated RBC (0.0-0.012) X10*3/uL Nucleated RBC % (auto) (0.0-0.2) /100WBC Smear Tech's Comments O2 Saturation % ABG pH at Pt Temp (7.35-7.45) ABG pCO2 at Pt Temp (32-45) mmHg ABG pO2 at Pt Temp (83-108) mmHg ABG HCO3 (22-26) mmol/L ABG Base Excess (Actual) mmol/L Sodium (135-145) mmol/L Potassium (3.3-5.1) mmol/L Chloride (96-108) mmol/L Carbon Dioxide (22-29) mmol/L Anion Gap (12-20) BUN (9-16) mg/dL Creatinine (0.5-1.4) mg/dL Estim Creat Clear Calc Estimated GFR Random Glucose (60-115) mg/dL Lactic Acid 0.9 (0.5-2.0) mmol/L Calcium (8.4-10.2) mg/dL Magnesium (1.6-2.6) mg/dL Total Bilirubin (0.0-1.0) mg/dL Direct Bilirubin (0.0-0.5) mg/dL AST (5-31) U/L ALT (0-31) U/L Alkaline Phosphatase (39-117) U/L Troponin I High Sens 7.7 (<3.5-17.0) ng/L B-Natriuretic Peptide (<100) pg/mL Total Protein (6.5-8.0) g/dL Albumin (3.5-5.0) g/dL COVID-19 (PAPO) Negative (Negative) COVID-19 Clin Com See Note 06/06/21 06/06/21 Range/Units 15:48 16:18 WBC (4.8-10.8) X10*3/uL RBC (4.20-5.50) X10*6/uL Hgb (12.0-16.0) g/dl Hct (37.0-47.0) % MCV (80.0-98.0) fL MCH (27.0-33.0) pg MCHC (31.0-35.0) g/dl RDW (11.0-16.0) % Plt Count (160-400) X10*3/uL MPV (9.4-12.3) fL Immature Gran % (Auto) (0.0-0.4) % Neut % (Auto) (45-73) % Lymph % (Auto) (20-40) % [place] % (Auto) (2-11) % Eos % (Auto) (0-4) % Baso % (Auto) (0-2) % Lymph # (Auto) (1.2-4.9) X10*3/uL [place] # (Auto) (0.1-1.2) X10*3/uL Eos # (Auto) (0.0-0.4) X10*3/uL Baso # (Auto) (0.0-0.2) X10*3/uL Abs Immat Gran (auto) (0.00-0.03) X10*3/uL Absolute Neuts (auto) (2.0-8.3) x10*3/uL Absolute Nucleated RBC (0.0-0.012) X10*3/uL Nucleated RBC % (auto) (0.0-0.2) /100WBC Smear Tech's Comments O2 Saturation 90.0 % ABG pH at Pt Temp 7.27 L (7.35-7.45) ABG pCO2 at Pt Temp 94 H* (32-45) mmHg ABG pO2 at Pt Temp 74 L (83-108) mmHg ABG HCO3 43 H (22-26) mmol/L ABG Base Excess (Actual) 11.8 mmol/L Sodium (135-145) mmol/L Potassium (3.3-5.1) mmol/L Chloride (96-108) mmol/L Carbon Dioxide (22-29) mmol/L Anion Gap (12-20) BUN (9-16) mg/dL Creatinine (0.5-1.4) mg/dL Estim Creat Clear Calc Estimated GFR Random Glucose (60-115) mg/dL Lactic Acid (0.5-2.0) mmol/L Calcium (8.4-10.2) mg/dL Magnesium (1.6-2.6) mg/dL Total Bilirubin (0.0-1.0) mg/dL Direct Bilirubin (0.0-0.5) mg/dL AST (5-31) U/L ALT (0-31) U/L Alkaline Phosphatase (39-117) U/L Troponin I High Sens (<3.5-17.0) ng/L B-Natriuretic Peptide < 10 (<100) pg/mL Total Protein (6.5-8.0) g/dL Albumin (3.5-5.0) g/dL COVID-19 (PAPO) (Negative) COVID-19 Clin Com ECG Data Attestation: I personally reviewed and interpreted this ECG as follows: ECG interpretation date: 06/06/21 ECG interpretation time: 14:31 Interpretation: Rate: 121 Rhythm: sinus tachycardia [place]: normal Normal P waves. Normal SHAHNAZ. Normal QRS complex. ST T wave : artifact noted no MIO qTC: normal prior studies: no acute ischemia The study has been interpreted contemporaneously by me. Critical Care Time Critical Care Time Critical Care Time: Yes Total Critical Care Time: 60 Attestation: bipap, review of records, repeat ABGs, medical consults to ICU I attest to this time spent taking care of the patient Discharge Plan Discharge Clinical Impression: Acute exacerbation of chronic obstructive pulmonary disease, Acute on chronic respiratory failure with hypoxia and hypercapnia, Leukocytosis Patient Disposition: Admitted As Inpatient Prescriptions: No Action tiotropium bromide [Spiriva with HandiHaler] 18 mcg capsule, w/inhalation device 1 cap inhalation DAILY Qty: 30 11RF immun glob [id number]-IgA 0-50 10 gram recon soln 40 g IV Q4W Qty: 2 12RF ipratropium-albuterol 0.5 mg-3 mg(2.5 mg base)/3 mL solution for nebulization 3 ml inhalation Q4H PRN (Reason: for wheezing) Qty: 540 6RF sodium chloride 3 % solution for nebulization 4 ml inhalation BID Qty: 240 3RF gabapentin 100 mg capsule 1 cap PO BID 0RF diltiazem HCl [Tiadylt ER] 360 mg capsule,extended release 24 hr 1 cap PO DAILY 0RF rosuvastatin 5 mg tablet 1 tab PO BEDTIME 0RF Daliresp 500 mcg tablet 1 tab PO DAILY 0RF lidocaine 5 % adhesive patch,medicated 1 patch topical DAILY 0RF insulin lispro [Humalog U-100 Insulin] 100 unit/mL solution See Protocol sliding scale dose subcut TIDAC 0RF Protocol: Insulin Correction Scale Less than or equal to 110 ---- Give (units): 0 111 to 150 Give (units): 0 151 to 200 Give (units): 2 201 to 250 Give (units): 4 251 to 300 Give (units): 6 301 to 350 Give (units): 8 Greater than 350 Give (units): 10 Call MD if Blood Glucose > : 350 lisinopril 20 mg tablet 20 mg PO DAILY Qty: 30 0RF metformin 500 mg tablet extended release 24 hr 2 tab PO BID 0RF Lantus U-100 Insulin 100 unit/mL solution 20 unit subcut BEDTIME Qty: 0 0RF prednisone 10 mg tablet 20 mg PO DAILY 0RF prednisone 10 mg tablet 10 mg PO BEDTIME 0RF Arnoldo-24 400 mg capsule,extended release 24hr 800 mg PO DAILY 0RF montelukast 10 mg tablet 10 mg PO BEDTIME 0RF albuterol sulfate [ProAir HFA] 90 mcg/actuation HFA aerosol inhaler 2 puff inhalation Q4H PRN (Reason: Shortness Of Breath Or Wheezing) 0RF loratadine [Claritin] 10 mg tablet 10 mg PO DAILY 0RF methadone 10 mg tablet 49 mg PO DAILY 0RF Label Comments: PT PROVIDED DIFFERENT DOSE THAN IS LISTED IN THE SYSTEM, AWAITING DOSAGE FROM PRESCRIBING FACILITY sennosides [Natural Senna Laxative] 8.6 mg tablet 8.6 mg PO BEDTIME PRN (Reason: constipation) Qty: 30 3RF Brovana 15 mcg/2 mL solution for nebulization 2 ml inhalation Q12H 30 Days Qty: 120 11RF budesonide 0.5 mg/2 mL suspension for nebulization 0.5 mg inhalation BID Qty: 120 11RF omeprazole 40 mg capsule,delayed release(DR/EC) 40 mg PO DAILY 30 Days Qty: 30 3RF
[2021-06-06] MEDS: Albuterol Sulfate (0.083%) 2.5 MG/3 ML VIAL.NEB 10 MG INHALE (14:14)
[2021-06-06] MEDS: methylPREDNISolone Sod Succ 125 MG/2 ML VIAL IVPUSH (14:34)
[2021-06-06] MEDS: ondansetron HCL 4 MG/2 ML VIAL IVPUSH (14:41)
[2021-06-06 14:43] LABS: ABG Base Excess 12.4 mmol/L; ABG HCO3 44 mmol/L (22-26); ABG pCO2 93 mmHg (32-45); ABG pH 7.28 (7.35-7.45); ABG pO2 73 mmHg (83-108)
[2021-06-06 14:57] LABS: Basophils Absolute Auto 0.1 X10*3/uL (0.0-0.2); Basophils Percent Auto 0.2 % (0-2); Eosinophils Percent Auto 0.1 % (0-4); Hemoglobin 13.7 g/dl (12.0-16.0); Imm Gran Abs Auto 0.12 X10*3/uL (0.00-0.03); Imm Gran Pct Auto 0.5 % (0.0-0.4); Lymphocytes Absolute Auto 0.9 X10*3/uL (1.2-4.9); Lymphocytes Percent Auto 3.8 % (20-40); MANUAL DIFF FLAG SCAN; Mean Corpuscular HGB Conc 29.1 g/dl (31.0-35.0); Mean Corpuscular Volume 103.1 fL (80.0-98.0); Monocytes Absolute Auto 0.5 X10*3/uL (0.1-1.2); Monocytes Percent Auto 2.3 % (2-11); Neutrophils Percent Auto 93.1 % (45-73); Platelet Count 315 X10*3/uL (160-400); Red Blood Count 4.56 X10*6/uL (4.20-5.50); Red Cell Distribution Width 12.6 % (11.0-16.0); SCAN SMEAR FLAG 1; White Blood Count 22.5 X10*3/uL (4.8-10.8)
--- NOTE | 2021-06-06 15:03 | PC.NURSE ---
pt drowsy but does awake easily, currently on bipap settings 18/8/30% of oxygen lung sounds diminished with wheezing. sinus tach on the monitor pt reports right sided sciatic pain that runs all the way down to her leg
[2021-06-06 15:12] LABS: COVID-19 Test Negative (Negative)
[2021-06-06 15:15] LABS: Troponin-I High Sensitivity 7.7 ng/L (<3.5-17.0)
[2021-06-06 15:16] LABS: SLIDE REVIEW VERIFIED
[2021-06-06 15:24] LABS: Alanine Aminotransferase 29 U/L (0-31); Alkaline Phosphatase 76 U/L (39-117); Anion Gap 11 (12-20); Aspartate Amino Transferase 17 U/L (5-31); Bilirubin Direct 0.2 mg/dL (0.0-0.5); Bilirubin Total 0.6 mg/dL (0.0-1.0); Blood Urea Nitrogen 18 mg/dL (9-16); Calcium 9.5 mg/dL (8.4-10.2); Carbon Dioxide 41 mmol/L (22-29); Chloride 92 mmol/L (96-108); Creatinine Clr Calc Pharmacy 102.9; Estimated Glomerular Filt Rate > 60; Glucose Random 208 mg/dL (60-115); Magnesium 1.9 mg/dL (1.6-2.6); Potassium 4.7 mmol/L (3.3-5.1); Sodium 139 mmol/L (135-145); Total Protein 6.7 g/dL (6.5-8.0)
[2021-06-06] MEDS: Furosemide 20 MG/2 ML VIAL IVPUSH (15:55)
--- NOTE | 2021-06-06 16:00 | PC.NURSE ---
pt is a very hard stick this rn attempted to get the second set of coutures but unsuccessful
[2021-06-06] MEDS: cefTRIAXone sodium 1 GM in 0.9 % Sodium Chloride 50 ML IV (16:06)
[2021-06-06 16:07] LABS: Lactic Acid 0.9 mmol/L (0.5-2.0)
[2021-06-06 16:18] LABS: B Type Natriuretic Peptide < 10 pg/mL (<100)
[2021-06-06 16:26] LABS: ABG Base Excess 11.8 mmol/L; ABG HCO3 43 mmol/L (22-26); ABG pCO2 94 mmHg (32-45); ABG pH 7.27 (7.35-7.45); ABG pO2 74 mmHg (83-108)
--- NOTE | 2021-06-06 16:50 | PM.CCHP ---
History of Present Illness Date of Service: 06/06/21 Chief Complaint: Dyspnea 51-year-old lady with underlying morbid obesity, asthma/ COPD overlap syndrome, obesity hypoventilation, on 2 L of supplemental oxygen, nocturnal BiPAP hypogammaglobulinemia on IVIG, opioid dependence on methadone, diabetes mellitus, hypertension, admitted on 06/06/2021 with dyspnea and hypoxia requiring BiPAP support. On ER evaluation patient noted to be in acute on chronic hypoxic and hypercapnic respiratory failure likely secondary to exacerbation of underlying congestive heart failure. She has been started on IV Diamox and admitted to intensive care unit. Review of Systems Constitutional: Constitutional: Denies daytime sleepiness, Denies excessive sweating, Denies fatigue, Denies fever(s), Denies lethargy, Denies malaise, Denies night sweats, Denies snoring and Denies weight loss Eyes: Eyes: Denies blurry vision and Denies itchy eyes ENT: Denies nasal congestion, Denies post nasal drip, Denies sinus pain, Denies sinus pressure and Denies other ( Thrush) Cardiovascular: Cardiovascular: Denies chest pain, Reports pedal edema, Denies dyspnea, Reports dyspnea on exertion, Reports orthopnea and Reports paroxysmal nocturnal dyspnea Respiratory: Respiratory: Denies cough, Denies hemoptysis, Denies excessive phlegm production, Denies dyspnea, Reports dyspnea on exertion, Denies snoring and Denies wheezing Gastrointestinal: Gastrointestinal: Denies abdominal pain and Denies heartburn Musculoskeletal: Musculoskeletal: Denies myalgias, Denies arthralgias and Denies joint swelling Integumentary/Breasts: Skin/Breast: Denies rash Neurologic: Denies memory loss and Denies seizure-like activity Psychiatric: Psychiatric: Denies abnormal sleep pattern, Denies anxiety and Denies memory loss Endocrine: Endocrine: Denies excessive sweating, Denies fatigue and Denies heat intolerance Hematologic/Lymphatic: Hematologic/Lymphatic: Denies easy bruising Allergic/Immunologic: Allergic/Immunologic: Denies itchy eyes, Denies seasonal rhinorrhea and Denies wheezing PMFSH Past Medical History Medical History Abdominal pain Asthma-COPD overlap syndrome Chronic respiratory failure Chronic respiratory failure COPD (chronic obstructive pulmonary disease) Diabetes mellitus Essential hypertension Hyperlipidemia, unspecified Hypogammaglobulinemia Limb swelling Poor dentition Tobacco abuse Type 2 diabetes mellitus with unspecified complications Family History Family History Father Diabetes Other Asthma Surgical History Surgical History H/O tubal ligation Social History Social History Household Members: Family Household Members Other:: 3 Housing: Unknown / Unable to assess Unable to assess alcohol history related to: Unknown Alcohol intake: unknown Patient Tobacco Use Status: Former Tobacco user Tobacco use type: Cigarette Cigarettes Per Day: 1 Years Smoked: 35 Smoked in Last 30 Days: Yes e-Cigarette/Vaping Use: Currently Using Second Hand Smoke Exposure: No Use of substances other than those prescribed or required for medical reasons: No Substance Use Type: Former Substance User Advance Directives: Yes Advance Directives on File: Yes Advance Directives Date on File: 11/16/20 service: No Current occupational status: unemployed and disabled Meds Allergies Allergy/AdvReac Type Severity Reaction Status Date / Time No Known Allergies Allergy Verified 05/14/21 09:46 [No Known Allergies*] Active Medications: Current Medications Acetazolamide (Acetazolamide Sodium 500 Mg Vial) 375 mg IVPUSH BID ANA Heparin Sodium (Porcine) (Heparin Sodium,Porcine 5,000 Unit/Ml Vial) 5,000 unit SUBCUT Q8H ANA Methadone HCl (Methadone Hcl 20 Mg/2 Ml Oral.Conc) 49 mg PO DAILY ANA Ondansetron HCl (Ondansetron Hcl 4 Mg/2 Ml Vial) 4 mg IVPUSH Q8H PRN PRN Reason: Nausea Pharmacy Consult (Consult Rx Perform Med Rec) 1 each MISCELLANE ONCE PRN PRN Reason: Consult order Home Medications Medication Instructions Recorded Confirmed Last Taken Type albuterol sulfate 90 mcg/actuation 2 puff INHALATION Q4H PRN 12/30/19 06/06/21 02/21/21 History aerosol inhaler (ProAir HFA) loratadine 10 mg tablet (Claritin) 10 mg PO DAILY 12/30/19 06/06/21 02/21/21 History methadone 10 mg tablet 49 mg PO DAILY 12/30/19 02/21/21 02/21/21 History montelukast 10 mg tablet 10 mg PO BEDTIME 12/30/19 06/06/21 02/20/21 History gabapentin 100 mg capsule 1 cap PO BID 10/14/20 06/06/21 02/21/21 History diltiazem HCl 360 mg capsule,24 1 cap PO DAILY 11/16/20 05/18/21 02/21/21 History hr,extended release (Tiadylt ER) roflumilast 500 mcg tablet 1 tab PO DAILY 11/16/20 05/18/21 02/21/21 History (Daliresp) rosuvastatin 5 mg tablet 1 tab PO BEDTIME 11/16/20 06/06/21 02/20/21 History insulin lispro 100 unit/mL See Protocol SUBCUT TIDAC 12/14/20 06/06/21 02/21/21 History subcutaneous solution (Humalog U-100 Insulin) lidocaine 5 % topical patch 1 patch TOPICAL DAILY 12/14/20 05/18/21 02/21/21 History metformin 500 mg tablet,extended 2 tab PO BID 05/18/21 06/06/21 Unknown History release 24 hr prednisone 10 mg tablet 10 mg PO BEDTIME 05/18/21 06/06/21 Unknown History prednisone 10 mg tablet 20 mg PO DAILY 05/18/21 06/06/21 Unknown History theophylline 400 mg 800 mg PO DAILY 05/18/21 06/06/21 Unknown History capsule,extended release 24 hr (Arnoldo-24) Physical Exam Vital Signs: Vital Signs: Last Vital Signs Pulse 115 H 06/06/21 16:10 Resp 22 H 06/06/21 16:34 BP 164/77 H 06/06/21 16:10 Pulse Ox 91 L 06/06/21 16:10 Oxygen Flow Rate 4 06/06/21 14:04 BMI result Body Mass Index 38.5 Const: General: no acute distress, alert and awake Eyes: Sclerae: sclerae normal EOM: EOMs intact bilaterally Neck: Neck: Yes no lymphadenopathy, Yes trachea midline and Yes supple Resp: Effort & Inspection: normal respiratory effort and no respiratory distress Auscultation: crackles (Diffuse bilateral) Cardio: Rate: tachycardic Rhythm: regular rhythm Heart sounds: no gallops, no murmurs and no rubs GI: Palpation (GI): Soft to palpation and Other GI palpation findings present ( Nontender) Auscultation: normal bowel sounds Extrem: General: No clubbing, No cyanosis and Yes pedal edema (1+ bilateral) Results Labs CBC and Chem 7: 06/06/21 14:50 06/06/21 14:50 Labs: Laboratory Results - last 24 hr 06/06/21 06/06/21 06/06/21 14:35 14:50 14:50 MCV 103.1 H MCH 30.0 MCHC 29.1 L RDW 12.6 Plt Count 315 MPV 9.0 L Immature Gran % (Auto) 0.5 H Neut % (Auto) 93.1 H Lymph % (Auto) 3.8 L Barnwell % (Auto) 2.3 Eos % (Auto) 0.1 Baso % (Auto) 0.2 Lymph # (Auto) 0.9 L Barnwell # (Auto) 0.5 Eos # (Auto) 0.0 Baso # (Auto) 0.1 Abs Immat Gran (auto) 0.12 H Absolute Neuts (auto) 21.0 H Absolute Nucleated RBC 0.000 Nucleated RBC % (auto) 0.0 Smear Tech's Comments VERIFIED O2 Saturation 91.0 ABG pH at Pt Temp 7.28 L ABG pCO2 at Pt Temp 93 H* ABG pO2 at Pt Temp 73 L ABG HCO3 44 H ABG Base Excess (Actual) 12.4 Anion Gap 11 L Estim Creat Clear Calc 102.9 Estimated GFR > 60 Random Glucose 208 H Lactic Acid Calcium 9.5 Magnesium 1.9 Total Bilirubin 0.6 Direct Bilirubin 0.2 AST 17 ALT 29 Alkaline Phosphatase 76 B-Natriuretic Peptide Total Protein 6.7 Albumin 4.0 COVID-19 (PAPO) COVID-19 Clin Com 06/06/21 06/06/21 06/06/21 14:50 15:48 15:48 MCV MCH MCHC RDW Plt Count MPV Immature Gran % (Auto) Neut % (Auto) Lymph % (Auto) Barnwell % (Auto) Eos % (Auto) Baso % (Auto) Lymph # (Auto) Barnwell # (Auto) Eos # (Auto) Baso # (Auto) Abs Immat Gran (auto) Absolute Neuts (auto) Absolute Nucleated RBC Nucleated RBC % (auto) Smear Tech's Comments O2 Saturation ABG pH at Pt Temp ABG pCO2 at Pt Temp ABG pO2 at Pt Temp ABG HCO3 ABG Base Excess (Actual) Anion Gap Estim Creat Clear Calc Estimated GFR Random Glucose Lactic Acid 0.9 Calcium Magnesium Total Bilirubin Direct Bilirubin AST ALT Alkaline Phosphatase B-Natriuretic Peptide < 10 Total Protein Albumin COVID-19 (PAPO) Negative COVID-19 Clin Com See Note 06/06/21 16:18 MCV MCH MCHC RDW Plt Count MPV Immature Gran % (Auto) Neut % (Auto) Lymph % (Auto) Barnwell % (Auto) Eos % (Auto) Baso % (Auto) Lymph # (Auto) Barnwell # (Auto) Eos # (Auto) Baso # (Auto) Abs Immat Gran (auto) Absolute Neuts (auto) Absolute Nucleated RBC Nucleated RBC % (auto) Smear Tech's Comments O2 Saturation 90.0 ABG pH at Pt Temp 7.27 L ABG pCO2 at Pt Temp 94 H* ABG pO2 at Pt Temp 74 L ABG HCO3 43 H ABG Base Excess (Actual) 11.8 Anion Gap Estim Creat Clear Calc Estimated GFR Random Glucose Lactic Acid Calcium Magnesium Total Bilirubin Direct Bilirubin AST ALT Alkaline Phosphatase B-Natriuretic Peptide Total Protein Albumin COVID-19 (PAPO) COVID-19 Clin Com Imaging Radiologist's Impressions: Impressions Chest X-Ray 06/06/21 14:59 IMPRESSION: Enlarged cardiac silhouette. Low lung volumes. Multiple bilateral rib fractures of varying ages. New 2.5 x 0.5 cm rectangular shaped radiopaque density that projects over the left medial chest of uncertain etiology. Assessment and Plan (1) Acute on chronic respiratory failure with hypoxia and hypercapnia: Status: Acute (2) Diabetes mellitus: Status: Acute (3) Asthma-COPD overlap syndrome: Status: Acute (4) Congestive heart failure: Status: Acute (5) Opioid dependence: Status: Acute (6) CO2 retention: Status: Acute Plan Assessment: 51-year-old lady with underlying obesity, obesity hyperventilation, COPD /asthma, opioid dependence admitted with acute on chronic hypoxic and hypercapnic respiratory failure requiring BiPAP support likely secondary to pulmonary edema. Plan: Neuro: No acute issues. Cardiac: Appears to have exacerbation of underlying chronic diastolic congestive heart. Started IV diuresis. Pulmonary: Acute on chronic hypoxic and hypercapnic respiratory failure now requiring BiPAP support. Continue to titrate off as tolerated. Continue with IV acetazolamide. Underlying obesity/ obesity hyperventilation syndrome on nocturnal noninvasive positive pressure ventilation at home. Renal: No acute issues. Endo: No acute issues. Underlying diabetes mellitus. GI: No acute issues. ID: No acute issues Heme/Onc: No acute issues. Psych: No acute issues. Miscellaneous: Opioid dependence, continuing outpatient dose of methadone. Prophylaxis: Heparin Diet: n. p.o. while on BiPAP Critical care time spent: 45 minutes
--- NOTE | 2021-06-06 16:53 | PC.NURSE ---
bipap setting changed to avaps 500/20 epap 8/40%
[2021-06-06 18:01] LABS: ABG Refer to POC result
[2021-06-06 18:02] LABS: ABG Refer to POC result
--- NOTE | 2021-06-06 18:38 | PC.NURSE ---
PT TOOK HER BIPAP OF, THIS RN FINALLY CONVINCED THE PT TO PUT THE BIPAP BACK ON PT ALSO REFUSING A PIPER CATH AND THE BED ANAYA, PUT ASSISTED TO THE COMMODE INSTEAD
[2021-06-06] MEDS: Heparin Sodium,Porcine 5,000 UNIT/ML VIAL 5000 UNIT SUBCUT (18:49)
[2021-06-06 19:18] LABS: Amphetamine Screen Urine Not Detected (Not Detect); Barbiturates, Urine Not Detected (Not Detect); Benzodiazepines Screen Urine Not Detected (Not Detect); Cannabinoid Screen Urine Not Detected (Not Detect); Cocaine Screen Urine Not Detected (Not Detect); Fentanyl, urine Not Detected (Not Detect); Opiate Screen Urine Not Detected (Not Detect); Phencyclidine Screen Urine Not Detected (Not Detect)
[2021-06-06] MEDS: Albuterol/Iprat 2.5/0.5MG 3 ML AMPUL.NEB INHALE (19:20)
[2021-06-06 19:41] LABS: ABG Refer to POC result
[2021-06-06 19:42] LABS: ABG Base Excess 13.2 mmol/L; ABG HCO3 46 mmol/L (22-26); ABG pCO2 105 mmHg (32-45); ABG pH 7.25 (7.35-7.45); ABG pO2 96 mmHg (83-108)
[2021-06-06] MEDS: acetaZOLAMIDE sodium 500 MG VIAL 375 MG IVPUSH (21:52)
[2021-06-06 22:17] LABS: ABG Base Excess 12.4 mmol/L; ABG HCO3 45 mmol/L (22-26); ABG pCO2 104 mmHg (32-45); ABG pH 7.24 (7.35-7.45); ABG pO2 80 mmHg (83-108)
[2021-06-06 23:18] LABS: Glucose, Whole Blood 223 mg/dL (60-115)
[2021-06-06 23:27] LABS: ABG Refer to POC result
[2021-06-06] MEDS: acetaZOLAMIDE sodium 500 MG VIAL 250 MG IVPUSH (23:31)
[2021-06-07] VITALS (31 sets, daily range): BP systolic 108–164; BP diastolic 64–113; PULSE 76–129; RESP 12–43; TEMP 36.3–37.1; O2SAT 88–96; BMI 37.9
[2021-06-07] MEDS: Heparin Sodium,Porcine 5,000 UNIT/ML VIAL 5000 UNIT SUBCUT ×3 (02:58→18:11)
[2021-06-07 05:51] LABS: Glucose, Whole Blood 164 mg/dL (60-115)
[2021-06-07 05:54] LABS: VBG Base Excess 7.1 mmol/L; VBG HCO3 37 mmol/L (22-26); VBG pCO2 77 mmHg; VBG pH 7.28 (7.32-7.43); VBG pO2 81 mmHg
[2021-06-07 06:12] LABS: Basophils Percent Auto 0.1 % (0-2); Hemoglobin 13.1 g/dl (12.0-16.0); Imm Gran Abs Auto 0.06 X10*3/uL (0.00-0.03); Imm Gran Pct Auto 0.4 % (0.0-0.4); Lymphocytes Absolute Auto 0.6 X10*3/uL (1.2-4.9); MANUAL DIFF FLAG SCAN; Mean Corpuscular HGB Conc 29.1 g/dl (31.0-35.0); Mean Corpuscular Hemoglobin 29.6 pg (27.0-33.0); Mean Corpuscular Volume 101.6 fL (80.0-98.0); Mean Platelet Volume 9.2 fL (9.4-12.3); Monocytes Absolute Auto 0.4 X10*3/uL (0.1-1.2); Monocytes Percent Auto 2.9 % (2-11); Neutrophils Absolute Auto 12.8 x10*3/uL (2.0-8.3); Neutrophils Percent Auto 92.6 % (45-73); Platelet Count 291 X10*3/uL (160-400); Red Blood Count 4.43 X10*6/uL (4.20-5.50); Red Cell Distribution Width 12.3 % (11.0-16.0); SCAN SMEAR FLAG 1; White Blood Count 13.8 X10*3/uL (4.8-10.8)
[2021-06-07 06:20] LABS: Venous Blood Gas Refer to POC result
[2021-06-07] MEDS: Albuterol/Iprat 2.5/0.5MG 3 ML AMPUL.NEB INHALE ×3 (06:25→20:08)
[2021-06-07 06:30] LABS: SLIDE REVIEW VERIFIED
[2021-06-07 06:41] LABS: Alanine Aminotransferase 23 U/L (0-31); Albumin Level 3.7 g/dL (3.5-5.0); Alkaline Phosphatase 70 U/L (39-117); Anion Gap 11 (12-20); Aspartate Amino Transferase 12 U/L (5-31); Bilirubin Total 0.4 mg/dL (0.0-1.0); Blood Urea Nitrogen 15 mg/dL (9-16); Calcium 9.5 mg/dL (8.4-10.2); Carbon Dioxide 35 mmol/L (22-29); Chloride 96 mmol/L (96-108); Creatinine Clr Calc Pharmacy 113.9; Estimated Glomerular Filt Rate > 60; Glucose Random 177 mg/dL (60-115); Magnesium 2.2 mg/dL (1.6-2.6); Phosphorus 4.2 mg/dL (2.7-4.5); Potassium 4.5 mmol/L (3.3-5.1); Sodium 137 mmol/L (135-145); Total Protein 6.4 g/dL (6.5-8.0)
[2021-06-07] MEDS: methADONE HCl 20 MG/2 ML ORAL.CONC 50 MG PO (08:57)
[2021-06-07] MEDS: acetaZOLAMIDE sodium 500 MG VIAL IVPUSH ×2 (08:57→20:24)
[2021-06-07 10:01] LABS: Glucose, Whole Blood 167 mg/dL (60-115)
[2021-06-07] MEDS: Insulin Lispro 100 UNIT/ML 3 ML VIAL SUBCUT ×2 (10:08→11:51)
--- NOTE | 2021-06-07 10:08 | MHC.CM.PN ---
Addendum entered by Sridevi Beard 06/07/21 10:20: Additional information: Pt receives methadone delivered to her home daily by a program in [place]. Pt cannot recall the name of the program Original Note: Met with pt to discuss d/c planning. Pt states she resides with family and has services with [facility] for skilled RN visits. She also has daily S[facility] RN services for assistance with ADL's and housekeeping. Pt is O2 dependent via [employer] and has a working CPAP and nebulizer although she states the nebulizer leaks. Instructed pt to notify vendor of equipment issue. Pt is not COVID vaxed. D/C plan is for a return to home with existing supports and services. Pt will call family or SANE RN for transportation home. HCP on filed and verified with pt. CM to follow for changes in d/c needs
--- NOTE | 2021-06-07 11:08 | PM.CCPN ---
Subjective Subjective Date of Service: 06/07/21 Interval History: 51-year-old lady with underlying morbid obesity, asthma/ COPD overlap syndrome, obesity hypoventilation, on 2 L of supplemental oxygen, nocturnal BiPAP hypogammaglobulinemia on IVIG, opioid dependence on methadone, diabetes mellitus, hypertension, admitted on 06/06/2021 with dyspnea and hypoxia requiring BiPAP support. On ER evaluation patient noted to be in acute on chronic hypoxic and hypercapnic respiratory failure likely secondary to exacerbation of underlying congestive heart failure. She has been started on IV Diamox and admitted to intensive care unit. no events overnight. On/ of BiPAP. Blood gas improved. Critical Care Time (minutes): 45 Physical Exam Vital Signs: Vital Signs: Last Vital Signs Temp 97.3 F 06/07/21 08:00 Pulse 112 H 06/07/21 10:00 Resp 20 06/07/21 10:00 BP 154/113 H 06/07/21 10:00 Pulse Ox 90 L 06/07/21 10:00 Oxygen Flow Rate 4 06/06/21 14:04 BMI result Body Mass Index 37.9 Const: General: no acute distress, alert and awake Nutritional Appearance: obese Eyes: Sclerae: sclerae normal EOM: EOMs intact bilaterally Neck: Neck: Yes no lymphadenopathy, Yes trachea midline and Yes supple Resp: Effort & Inspection: normal respiratory effort and no respiratory distress Auscultation: crackles ( Bibasilar) Cardio: Rate: tachycardic Rhythm: regular rhythm Heart sounds: no gallops, no murmurs and no rubs GI: Palpation (GI): Soft to palpation and Other GI palpation findings present ( Nontender) Auscultation: normal bowel sounds Extrem: General: No clubbing, No cyanosis and Yes pedal edema ( 1+ bilateral) Objective Data Labs CBC & Chem 7: 06/07/21 05:47 06/07/21 05:47 Labs: Laboratory Results - last 24 hr 06/06/21 06/06/21 06/06/21 14:35 14:50 14:50 WBC 22.5 H RBC 4.56 Hgb 13.7 Hct 47.0 MCV 103.1 H MCH 30.0 MCHC 29.1 L RDW 12.6 Plt Count 315 MPV 9.0 L Immature Gran % (Auto) 0.5 H Neut % (Auto) 93.1 H Lymph % (Auto) 3.8 L Glenn % (Auto) 2.3 Eos % (Auto) 0.1 Baso % (Auto) 0.2 Lymph # (Auto) 0.9 L Glenn # (Auto) 0.5 Eos # (Auto) 0.0 Baso # (Auto) 0.1 Abs Immat Gran (auto) 0.12 H Absolute Neuts (auto) 21.0 H Absolute Nucleated RBC 0.000 Nucleated RBC % (auto) 0.0 Smear Tech's Comments VERIFIED O2 Saturation 91.0 ABG pH at Pt Temp 7.28 L ABG pCO2 at Pt Temp 93 H* ABG pO2 at Pt Temp 73 L ABG HCO3 44 H ABG Base Excess (Actual) 12.4 VBG pH VBG pCO2 VBG pO2 VBG HCO3 VBG O2 Saturation VBG Base Excess Sodium 139 Potassium 4.7 D Chloride 92 L Carbon Dioxide 41 H* D Anion Gap 11 L BUN 18 H Creatinine 0.67 Estim Creat Clear Calc 102.9 Estimated GFR > 60 POC Glucose Random Glucose 208 H Lactic Acid Calcium 9.5 Phosphorus Magnesium 1.9 Total Bilirubin 0.6 Direct Bilirubin 0.2 AST 17 ALT 29 Alkaline Phosphatase 76 Troponin I High Sens B-Natriuretic Peptide Total Protein 6.7 Albumin 4.0 Urine Opiates Screen Urine Fentanyl Screen Ur Barbiturates Screen Ur Phencyclidine Scrn Ur Amphetamines Screen U Benzodiazepines Scrn Urine Cocaine Screen U Marijuana (THC) Screen COVID-19 (PAPO) COVID-19 Clin Com 06/06/21 06/06/21 06/06/21 14:50 14:50 15:48 WBC RBC Hgb Hct MCV MCH MCHC RDW Plt Count MPV Immature Gran % (Auto) Neut % (Auto) Lymph % (Auto) Glenn % (Auto) Eos % (Auto) Baso % (Auto) Lymph # (Auto) Glenn # (Auto) Eos # (Auto) Baso # (Auto) Abs Immat Gran (auto) Absolute Neuts (auto) Absolute Nucleated RBC Nucleated RBC % (auto) Smear Tech's Comments O2 Saturation ABG pH at Pt Temp ABG pCO2 at Pt Temp ABG pO2 at Pt Temp ABG HCO3 ABG Base Excess (Actual) VBG pH VBG pCO2 VBG pO2 VBG HCO3 VBG O2 Saturation VBG Base Excess Sodium Potassium Chloride Carbon Dioxide Anion Gap BUN Creatinine Estim Creat Clear Calc Estimated GFR POC Glucose Random Glucose Lactic Acid 0.9 Calcium Phosphorus Magnesium Total Bilirubin Direct Bilirubin AST ALT Alkaline Phosphatase Troponin I High Sens 7.7 B-Natriuretic Peptide Total Protein Albumin Urine Opiates Screen Urine Fentanyl Screen Ur Barbiturates Screen Ur Phencyclidine Scrn Ur Amphetamines Screen U Benzodiazepines Scrn Urine Cocaine Screen U Marijuana (THC) Screen COVID-19 (PAPO) Negative COVID-19 [employer] Com See Note 06/06/21 06/06/21 06/06/21 15:48 16:18 18:48 WBC RBC Hgb Hct MCV MCH MCHC RDW Plt Count MPV Immature Gran % (Auto) Neut % (Auto) Lymph % (Auto) Glenn % (Auto) Eos % (Auto) Baso % (Auto) Lymph # (Auto) Glenn # (Auto) Eos # (Auto) Baso # (Auto) Abs Immat Gran (auto) Absolute Neuts (auto) Absolute Nucleated RBC Nucleated RBC % (auto) Smear Tech's Comments O2 Saturation 90.0 ABG pH at Pt Temp 7.27 L ABG pCO2 at Pt Temp 94 H* ABG pO2 at Pt Temp 74 L ABG HCO3 43 H ABG Base Excess (Actual) 11.8 VBG pH VBG pCO2 VBG pO2 VBG HCO3 VBG O2 Saturation VBG Base Excess Sodium Potassium Chloride Carbon Dioxide Anion Gap BUN Creatinine Estim Creat Clear Calc Estimated GFR POC Glucose Random Glucose Lactic Acid Calcium Phosphorus Magnesium Total Bilirubin Direct Bilirubin AST ALT Alkaline Phosphatase Troponin I High Sens B-Natriuretic Peptide < 10 Total Protein Albumin Urine Opiates Screen Not Detected Urine Fentanyl Screen Not Detected Ur Barbiturates Screen Not Detected Ur Phencyclidine Scrn Not Detected Ur Amphetamines Screen Not Detected U Benzodiazepines Scrn Not Detected Urine Cocaine Screen Not Detected U Marijuana (THC) Screen Not Detected COVID-19 (PAPO) COVID-19 Language123 06/06/21 06/06/21 06/06/21 19:33 22:09 23:13 WBC RBC Hgb Hct MCV MCH MCHC RDW Plt Count MPV Immature Gran % (Auto) Neut % (Auto) Lymph % (Auto) Glenn % (Auto) Eos % (Auto) Baso % (Auto) Lymph # (Auto) Glenn # (Auto) Eos # (Auto) Baso # (Auto) Abs Immat Gran (auto) Absolute Neuts (auto) Absolute Nucleated RBC Nucleated RBC % (auto) Smear Tech's Comments O2 Saturation 96.0 93.0 ABG pH at Pt Temp 7.25 L 7.24 L ABG pCO2 at Pt Temp 105 H* 104 H* ABG pO2 at Pt Temp 96 80 L ABG HCO3 46 H 45 H ABG Base Excess (Actual) 13.2 12.4 VBG pH VBG pCO2 VBG pO2 VBG HCO3 VBG O2 Saturation VBG Base Excess Sodium Potassium Chloride Carbon Dioxide Anion Gap BUN Creatinine Estim Creat Clear Calc Estimated GFR POC Glucose 223 H Random Glucose Lactic Acid Calcium Phosphorus Magnesium Total Bilirubin Direct Bilirubin AST ALT Alkaline Phosphatase Troponin I High Sens B-Natriuretic Peptide Total Protein Albumin Urine Opiates Screen Urine Fentanyl Screen Ur Barbiturates Screen Ur Phencyclidine Scrn Ur Amphetamines Screen U Benzodiazepines Scrn Urine Cocaine Screen U Marijuana (THC) Screen COVID-19 (PAPO) COVID-19 Clin Com 06/07/21 06/07/21 06/07/21 05:46 05:47 05:47 WBC 13.8 H RBC 4.43 Hgb 13.1 Hct 45.0 MCV 101.6 H MCH 29.6 MCHC 29.1 L RDW 12.3 Plt Count 291 MPV 9.2 L Immature Gran % (Auto) 0.4 Neut % (Auto) 92.6 H Lymph % (Auto) 4.0 L Glenn % (Auto) 2.9 Eos % (Auto) 0.0 Baso % (Auto) 0.1 Lymph # (Auto) 0.6 L Glenn # (Auto) 0.4 Eos # (Auto) 0.0 Baso # (Auto) 0.0 Abs Immat Gran (auto) 0.06 H Absolute Neuts (auto) 12.8 H Absolute Nucleated RBC 0.000 Nucleated RBC % (auto) 0.0 Smear Tech's Comments VERIFIED O2 Saturation ABG pH at Pt Temp ABG pCO2 at Pt Temp ABG pO2 at Pt Temp ABG HCO3 ABG Base Excess (Actual) VBG pH 7.28 L VBG pCO2 77 VBG pO2 81 VBG HCO3 37 H VBG O2 Saturation 94.0 VBG Base Excess 7.1 Sodium 137 Potassium 4.5 Chloride 96 Carbon Dioxide 35 H Anion Gap 11 L BUN 15 Creatinine 0.60 Estim Creat Clear Calc 113.9 Estimated GFR > 60 POC Glucose Random Glucose 177 H Lactic Acid Calcium 9.5 Phosphorus 4.2 Magnesium 2.2 Total Bilirubin 0.4 Direct Bilirubin AST 12 ALT 23 Alkaline Phosphatase 70 Troponin I High Sens B-Natriuretic Peptide Total Protein 6.4 L Albumin 3.7 Urine Opiates Screen Urine Fentanyl Screen Ur Barbiturates Screen Ur Phencyclidine Scrn Ur Amphetamines Screen U Benzodiazepines Scrn Urine Cocaine Screen U Marijuana (THC) Screen COVID-19 (PAPO) COVID-19 Clin Com 06/07/21 06/07/21 05:47 09:58 WBC RBC Hgb Hct MCV MCH MCHC RDW Plt Count MPV Immature Gran % (Auto) Neut % (Auto) Lymph % (Auto) Glenn % (Auto) Eos % (Auto) Baso % (Auto) Lymph # (Auto) Glenn # (Auto) Eos # (Auto) Baso # (Auto) Abs Immat Gran (auto) Absolute Neuts (auto) Absolute Nucleated RBC Nucleated RBC % (auto) Smear Tech's Comments O2 Saturation ABG pH at Pt Temp ABG pCO2 at Pt Temp ABG pO2 at Pt Temp ABG HCO3 ABG Base Excess (Actual) VBG pH VBG pCO2 VBG pO2 VBG HCO3 VBG O2 Saturation VBG Base Excess Sodium Potassium Chloride Carbon Dioxide Anion Gap BUN Creatinine Estim Creat Clear Calc Estimated GFR POC Glucose 164 H 167 H Random Glucose Lactic Acid Calcium Phosphorus Magnesium Total Bilirubin Direct Bilirubin AST ALT Alkaline Phosphatase Troponin I High Sens B-Natriuretic Peptide Total Protein Albumin Urine Opiates Screen Urine Fentanyl Screen Ur Barbiturates Screen Ur Phencyclidine Scrn Ur Amphetamines Screen U Benzodiazepines Scrn Urine Cocaine Screen U Marijuana (THC) Screen COVID-19 (PAPO) COVID-19 Clin Com Progress Note: A&P Assessment and plan (1) CO2 retention: Status: Acute (2) Congestive heart failure: Status: Acute (3) Diabetes mellitus: Status: Acute (4) Opioid dependence: Status: Acute (5) Acute on chronic respiratory failure with hypoxia and hypercapnia: Status: Acute (6) Asthma-COPD overlap syndrome: Status: Acute Plan Assessment: 51-year-old lady with underlying obesity, obesity hyperventilation, COPD /asthma, opioid dependence admitted with acute on chronic hypoxic and hypercapnic respiratory failure requiring BiPAP support likely secondary to pulmonary edema. Plan: Neuro: No acute issues. Cardiac: Appears to have exacerbation of underlying chronic diastolic congestive heart. Continue on IV diuresis with acetazolamide. Pulmonary: Acute on chronic hypoxic and hypercapnic respiratory failure now on/off BiPAP support. Continue to titrate off as tolerated. Continue with IV acetazolamide. Underlying obesity/ obesity hyperventilation syndrome on nocturnal noninvasive positive pressure ventilation at home. Renal: No acute issues. Endo: No acute issues. Underlying diabetes mellitus. GI: No acute issues. ID: No acute issues Heme/Onc: No acute issues. Psych: No acute issues. Miscellaneous: Opioid dependence, continuing outpatient dose of methadone. Prophylaxis: Heparin Diet: n. p.o. while on BiPAP, otherwise diabetic Critical care time spent: 45 minutes Quality Stroke Does the patient have a stroke diagnosis?: No VTE Prior VTE?: No VTE Risk Level:: Medical - moderate - high VTE Device Contraindication: Treatment Not Indicated VTE Drug Contraindication: N/A - Med Ordered
[2021-06-07 11:22] LABS: Glucose, Whole Blood 158 mg/dL (60-115)
[2021-06-07 11:47] LABS: ABG Base Excess 9.3 mmol/L; ABG HCO3 39 mmol/L (22-26); ABG pCO2 79 mmHg (32-45); ABG pO2 63 mmHg (83-108)
[2021-06-07] MEDS: dilTIAZem HCL CD 240 MG CAP.ER.DEG PO (12:35)
[2021-06-07 16:20] LABS: Glucose, Whole Blood 140 mg/dL (60-115)
[2021-06-07 17:55] LABS: ABG Refer to POC result
[2021-06-07 20:22] LABS: Glucose, Whole Blood 134 mg/dL (60-115)
[2021-06-07] MEDS: Insulin Glargine,Hum.rec.anlog 100 UNIT/ML 10 ML VIAL 20 UNIT SUBCUT (20:43)
[2021-06-08] VITALS (24 sets, daily range): BP systolic 90–157; BP diastolic 67–93; PULSE 74–113; RESP 12–23; TEMP 36.1–36.8; O2SAT 88–98; BMI 37.0
[2021-06-08] MEDS: Heparin Sodium,Porcine 5,000 UNIT/ML VIAL 5000 UNIT SUBCUT ×3 (02:09→16:55)
[2021-06-08] MEDS: Albuterol Sulfate (0.083%) 2.5 MG/3 ML VIAL.NEB INHALE (02:34)
[2021-06-08 05:50] LABS: VBG Base Excess 7.1 mmol/L; VBG HCO3 34 mmol/L (22-26); VBG pCO2 61 mmHg; VBG pH 7.35 (7.32-7.43); VBG pO2 64 mmHg
[2021-06-08 06:13] LABS: MANUAL DIFF FLAG NO
[2021-06-08 06:19] LABS: Basophils Percent Auto 0.3 % (0-2); Eosinophils Absolute Auto 0.1 X10*3/uL (0.0-0.4); Eosinophils Percent Auto 0.7 % (0-4); Hematocrit 43.3 % (37.0-47.0); Hemoglobin 12.7 g/dl (12.0-16.0); Imm Gran Abs Auto 0.05 X10*3/uL (0.00-0.03); Imm Gran Pct Auto 0.4 % (0.0-0.4); Lymphocytes Absolute Auto 1.7 X10*3/uL (1.2-4.9); Mean Corpuscular HGB Conc 29.3 g/dl (31.0-35.0); Mean Corpuscular Hemoglobin 29.7 pg (27.0-33.0); Mean Corpuscular Volume 101.2 fL (80.0-98.0); Mean Platelet Volume 9.5 fL (9.4-12.3); Monocytes Absolute Auto 0.7 X10*3/uL (0.1-1.2); Monocytes Percent Auto 5.7 % (2-11); Neutrophils Absolute Auto 9.5 x10*3/uL (2.0-8.3); Neutrophils Percent Auto 78.9 % (45-73); Platelet Count 284 X10*3/uL (160-400); Red Blood Count 4.28 X10*6/uL (4.20-5.50); Red Cell Distribution Width 12.4 % (11.0-16.0)
[2021-06-08 06:35] LABS: Albumin Level 3.5 g/dL (3.5-5.0); Anion Gap 11 (12-20); Blood Urea Nitrogen 23 mg/dL (9-16); Calcium 9.6 mg/dL (8.4-10.2); Carbon Dioxide 31 mmol/L (22-29); Chloride 101 mmol/L (96-108); Creatinine Clr Calc Pharmacy 105.6; Estimated Glomerular Filt Rate > 60; Glucose Random 101 mg/dL (60-115); Magnesium 2.2 mg/dL (1.6-2.6); Phosphorus 2.5 mg/dL (2.7-4.5); Sodium 139 mmol/L (135-145)
[2021-06-08 06:52] LABS: Venous Blood Gas Refer to POC result
[2021-06-08 07:40] LABS: Glucose, Whole Blood 110 mg/dL (60-115)
[2021-06-08] MEDS: Albuterol/Iprat 2.5/0.5MG 3 ML AMPUL.NEB INHALE ×3 (08:20→20:09)
[2021-06-08] MEDS: methADONE HCl 20 MG/2 ML ORAL.CONC 50 MG PO (08:25)
[2021-06-08] MEDS: dilTIAZem HCL CD 240 MG CAP.ER.DEG PO (08:25)
[2021-06-08] MEDS: acetaZOLAMIDE sodium 500 MG VIAL IVPUSH ×2 (08:25→21:43)
[2021-06-08] MEDS: Sodium,Potassium Phosphates POWD.PACK 2 PACKET PO (08:25)
[2021-06-08] MEDS: Furosemide 40 MG/4 ML VIAL IVPUSH ×2 (08:47→16:55)
--- NOTE | 2021-06-08 09:41 | MHC.CM.PN ---
Patient currently in ICU. Was on bipap overnight. Currently on 2LNC. Patient is from home with VNA and VACCINE CUSTOMER REPRESENTATIVE hours. ICU reports patient's family was attempting to bring her fried chicken at 11pm last night. Family was educated on heart healthy foods. Anticipate patient will return home with services when medically stable. Continue to monitor for d/c needs.
--- NOTE | 2021-06-08 10:47 | PM.CCPN ---
Subjective Subjective Date of Service: 06/08/21 Interval History: 51-year-old lady with underlying morbid obesity, asthma/ COPD overlap syndrome, obesity hypoventilation, on 2 L of supplemental oxygen, nocturnal BiPAP hypogammaglobulinemia on IVIG, opioid dependence on methadone, diabetes mellitus, hypertension, admitted on 06/06/2021 with dyspnea and hypoxia requiring BiPAP support. On ER evaluation patient noted to be in acute on chronic hypoxic and hypercapnic respiratory failure likely secondary to exacerbation of underlying congestive heart failure. She has been started on IV Diamox and admitted to intensive care unit. No events overnight. On/ off BiPAP. Critical Care Time (minutes): 45 Physical Exam Vital Signs: Vital Signs: Last Vital Signs Temp 97.4 F 06/08/21 08:00 Pulse 113 H 06/08/21 10:00 Resp 23 H 06/08/21 10:00 BP 90/73 06/08/21 10:00 Pulse Ox 90 L 06/08/21 10:00 Oxygen Flow Rate 4 06/06/21 14:04 BMI result Body Mass Index 37.0 Const: General: no acute distress, alert and awake Nutritional Appearance: obese Eyes: Sclerae: sclerae normal EOM: EOMs intact bilaterally Neck: Neck: Yes no lymphadenopathy, Yes trachea midline and Yes supple Resp: Effort & Inspection: normal respiratory effort and no respiratory distress Auscultation: clear to auscultation bilaterally Cardio: Rate: regular rate Rhythm: regular rhythm Heart sounds: no gallops, no murmurs and no rubs GI: Palpation (GI): Soft to palpation and Other GI palpation findings present ( Nontender) Auscultation: normal bowel sounds Extrem: General: No clubbing, No cyanosis and Yes pedal edema ( trace bilateral) Objective Data Labs CBC & Chem 7: 06/08/21 05:41 06/08/21 05:41 Labs: Laboratory Results - last 24 hr 06/07/21 06/07/21 06/07/21 11:18 11:40 16:17 WBC RBC Hgb Hct MCV MCH MCHC RDW Plt Count MPV Immature Gran % (Auto) Neut % (Auto) Lymph % (Auto) [place] % (Auto) Eos % (Auto) Baso % (Auto) Lymph # (Auto) [place] # (Auto) Eos # (Auto) Baso # (Auto) Abs Immat Gran (auto) Absolute Neuts (auto) Absolute Nucleated RBC Nucleated RBC % (auto) O2 Saturation 87.0 ABG pH at Pt Temp 7.30 L ABG pCO2 at Pt Temp 79 H* ABG pO2 at Pt Temp 63 L ABG HCO3 39 H ABG Base Excess (Actual) 9.3 VBG pH VBG pCO2 VBG pO2 VBG HCO3 VBG O2 Saturation VBG Base Excess Sodium Potassium Chloride Carbon Dioxide Anion Gap BUN Creatinine Estim Creat Clear Calc Estimated GFR POC Glucose 158 H 140 H Random Glucose Calcium Phosphorus Magnesium Albumin 06/07/21 06/08/21 06/08/21 20:17 05:41 05:41 WBC 12.0 H RBC 4.28 Hgb 12.7 Hct 43.3 MCV 101.2 H MCH 29.7 MCHC 29.3 L RDW 12.4 Plt Count 284 MPV 9.5 Immature Gran % (Auto) 0.4 Neut % (Auto) 78.9 H Lymph % (Auto) 14.0 L [place] % (Auto) 5.7 Eos % (Auto) 0.7 Baso % (Auto) 0.3 Lymph # (Auto) 1.7 [place] # (Auto) 0.7 Eos # (Auto) 0.1 Baso # (Auto) 0.0 Abs Immat Gran (auto) 0.05 H Absolute Neuts (auto) 9.5 H Absolute Nucleated RBC 0.000 Nucleated RBC % (auto) 0.0 O2 Saturation ABG pH at Pt Temp ABG pCO2 at Pt Temp ABG pO2 at Pt Temp ABG HCO3 ABG Base Excess (Actual) VBG pH VBG pCO2 VBG pO2 VBG HCO3 VBG O2 Saturation VBG Base Excess Sodium 139 Potassium 4.0 Chloride 101 Carbon Dioxide 31 H Anion Gap 11 L BUN 23 H D Creatinine 0.64 Estim Creat Clear Calc 105.6 Estimated GFR > 60 POC Glucose 134 H Random Glucose 101 Calcium 9.6 Phosphorus 2.5 L Magnesium 2.2 Albumin 3.5 06/08/21 06/08/21 05:43 07:36 WBC RBC Hgb Hct MCV MCH MCHC RDW Plt Count MPV Immature Gran % (Auto) Neut % (Auto) Lymph % (Auto) [place] % (Auto) Eos % (Auto) Baso % (Auto) Lymph # (Auto) [place] # (Auto) Eos # (Auto) Baso # (Auto) Abs Immat Gran (auto) Absolute Neuts (auto) Absolute Nucleated RBC Nucleated RBC % (auto) O2 Saturation ABG pH at Pt Temp ABG pCO2 at Pt Temp ABG pO2 at Pt Temp ABG HCO3 ABG Base Excess (Actual) VBG pH 7.35 VBG pCO2 61 VBG pO2 64 VBG HCO3 34 H VBG O2 Saturation 89.0 VBG Base Excess 7.1 Sodium Potassium Chloride Carbon Dioxide Anion Gap BUN Creatinine Estim Creat Clear Calc Estimated GFR POC Glucose 110 Random Glucose Calcium Phosphorus Magnesium Albumin Microbiology Microbiology Results: Microbiology 06/06/21 16:05 Blood - Venous Blood Culture - Preliminary No growth after 24 hours. 06/06/21 14:50 Blood - Venous Blood Culture - Preliminary No growth after 24 hours. Progress Note: A&P Assessment and plan (1) CO2 retention: Status: Acute (2) Congestive heart failure: Status: Acute (3) Diabetes mellitus: Status: Acute (4) Opioid dependence: Status: Acute (5) Acute on chronic respiratory failure with hypoxia and hypercapnia: Status: Acute (6) Pulmonary congestion: Status: Acute (7) Asthma-COPD overlap syndrome: Status: Acute Plan Assessment: 51-year-old lady with underlying obesity, obesity hyperventilation, COPD /asthma, opioid dependence admitted with acute on chronic hypoxic and hypercapnic respiratory failure requiring BiPAP support likely secondary to pulmonary edema. Plan: Neuro: No acute issues. Cardiac: Appears to have exacerbation of underlying chronic diastolic congestive heart. Continue on IV diuresis with acetazolamide. Pulmonary: Acute on chronic hypoxic and hypercapnic respiratory failure now on/off BiPAP support. Continue to titrate off as tolerated. Continue with IV acetazolamide. Underlying obesity/ obesity hyperventilation syndrome on nocturnal noninvasive positive pressure ventilation at home. Renal: No acute issues. Endo: No acute issues. Underlying diabetes mellitus. GI: No acute issues. ID: No acute issues Heme/Onc: No acute issues. Psych: No acute issues. Miscellaneous: Opioid dependence, continuing outpatient dose of methadone. Prophylaxis: Heparin Diet: n. p.o. while on BiPAP, otherwise diabetic Critical care time spent: 45 minutes Quality Stroke Does the patient have a stroke diagnosis?: No VTE Prior VTE?: No VTE Risk Level:: Medical - moderate - high VTE Device Contraindication: Treatment Not Indicated VTE Drug Contraindication: N/A - Med Ordered
[2021-06-08 11:31] LABS: ABG Base Excess 9.2 mmol/L; ABG HCO3 37 mmol/L (22-26); ABG pCO2 67 mmHg (32-45); ABG pH 7.35 (7.35-7.45); ABG pO2 61 mmHg (83-108)
[2021-06-08 11:37] LABS: Glucose, Whole Blood 200 mg/dL (60-115)
[2021-06-08] MEDS: Insulin Lispro 100 UNIT/ML 3 ML VIAL SUBCUT ×3 (12:02→21:43)
[2021-06-08 13:09] LABS: ABG Refer to POC result
[2021-06-08 16:54] LABS: Glucose, Whole Blood 174 mg/dL (60-115)
[2021-06-08 21:39] LABS: Glucose, Whole Blood 194 mg/dL (60-115)
[2021-06-08] MEDS: Insulin Glargine,Hum.rec.anlog 100 UNIT/ML 10 ML VIAL 20 UNIT SUBCUT (21:43)
[2021-06-09] VITALS (10 sets, daily range): BP systolic 114–138; BP diastolic 72–94; PULSE 88–110; RESP 17–22; TEMP 36.1–37.3; O2SAT 90–97; BMI 36.3
[2021-06-09] MEDS: Heparin Sodium,Porcine 5,000 UNIT/ML VIAL 5000 UNIT SUBCUT ×3 (02:33→19:33)
--- NOTE | 2021-06-09 04:38 | PC.NURSE ---
Patient transferred via wheelchair from ICU at 0300. BIPAP on for night.
[2021-06-09 06:38] LABS: Venous Blood Gas Refer to POC result
[2021-06-09 06:39] LABS: MANUAL DIFF FLAG NO
[2021-06-09 06:39] LABS: VBG Base Excess 11.2 mmol/L; VBG HCO3 41 mmol/L (22-26); VBG pCO2 78 mmHg; VBG pH 7.32 (7.32-7.43); VBG pO2 32 mmHg
[2021-06-09 06:44] LABS: Basophils Percent Auto 0.4 % (0-2); Eosinophils Absolute Auto 0.1 X10*3/uL (0.0-0.4); Hematocrit 46.4 % (37.0-47.0); Hemoglobin 14.4 g/dl (12.0-16.0); Imm Gran Abs Auto 0.06 X10*3/uL (0.00-0.03); Imm Gran Pct Auto 0.6 % (0.0-0.4); Lymphocytes Absolute Auto 1.4 X10*3/uL (1.2-4.9); Mean Corpuscular Hemoglobin 30.3 pg (27.0-33.0); Mean Corpuscular Volume 97.5 fL (80.0-98.0); Monocytes Absolute Auto 0.7 X10*3/uL (0.1-1.2); Monocytes Percent Auto 6.8 % (2-11); Neutrophils Absolute Auto 7.7 x10*3/uL (2.0-8.3); Neutrophils Percent Auto 77.2 % (45-73); Platelet Count 311 X10*3/uL (160-400); Red Blood Count 4.76 X10*6/uL (4.20-5.50); Red Cell Distribution Width 12.2 % (11.0-16.0)
[2021-06-09 07:17] LABS: Albumin Level 3.7 g/dL (3.5-5.0); Anion Gap 12 (12-20); Blood Urea Nitrogen 17 mg/dL (9-16); Calcium 9.8 mg/dL (8.4-10.2); Carbon Dioxide 35 mmol/L (22-29); Chloride 97 mmol/L (96-108); Creatinine Clr Calc Pharmacy 99.7; Estimated Glomerular Filt Rate > 60; Glucose Random 128 mg/dL (60-115); Magnesium 1.9 mg/dL (1.6-2.6); Phosphorus 3.9 mg/dL (2.7-4.5); Potassium 3.9 mmol/L (3.3-5.1); Sodium 140 mmol/L (135-145)
[2021-06-09] MEDS: Albuterol/Iprat 2.5/0.5MG 3 ML AMPUL.NEB INHALE ×3 (08:01→19:42)
[2021-06-09 08:32] LABS: Glucose, Whole Blood 132 mg/dL (60-115)
[2021-06-09] MEDS: methADONE HCl 20 MG/2 ML ORAL.CONC 50 MG PO (09:17)
[2021-06-09] MEDS: acetaZOLAMIDE sodium 500 MG VIAL IVPUSH ×2 (09:18→21:53)
[2021-06-09] MEDS: dilTIAZem HCL CD 240 MG CAP.ER.DEG PO (09:18)
[2021-06-09] MEDS: Furosemide 40 MG/4 ML VIAL IVPUSH (09:18)
[2021-06-09 11:22] LABS: Glucose, Whole Blood 306 mg/dL (60-115)
[2021-06-09] MEDS: Insulin Lispro 100 UNIT/ML 3 ML VIAL SUBCUT ×2 (12:26→21:52)
--- NOTE | 2021-06-09 13:18 | P.PNIM_ITS ---
Subjective Subjective Date of Service: 06/09/21 Interval History: the patient was seen and evaluated this morning Laying in bed, feels better but still reporting some dyspnea Oxygen requirement down to 2 L Denies any fever, chills or chest pain No reported other overnight events. Systemic review: No fever, chills or weakness No chest pain, palpitation Having dyspnea and episodes of coughing No abdominal pain, nausea or vomiting No urinary symptoms No any rash or wounds Physical Exam Vital Signs: Vital Signs: Last Vital Signs Temp 99.2 F 06/09/21 11:31 Pulse 105 H 06/09/21 11:31 Resp 22 H 06/09/21 11:31 BP 114/81 06/09/21 11:31 Pulse Ox 93 06/09/21 11:31 Oxygen Flow Rate 4 06/06/21 14:04 BMI result Body Mass Index 36.3 Const: Other: Constitutional : Alert, oriented, not in distress Neck : Normal inspection, Supple Cardiovascular : RRR, S1 S2, no lower extremity edema Respiratory : Decreased bilateral air entry, bilateral scattered is wheezes, basal fine crackles Gastrointestinal: soft, lax, Normal bowel sounds, Non tender Skin : Warm, Dry Neurological : Alert & oriented x3, No focal deficit Objective Data Active Medications Acetazolamide (Acetazolamide Sodium 500 Mg Vial) 500 mg IVPUSH BID [facility] Last Admin: 06/09/21 09:18 Dose: 500 mg Documented by: YUN Albuterol Sulfate (Albuterol Sulfate (0.083%) 2.5 Mg/3 Ml Vial.Neb) 2.5 mg IN [place]AN RQ4H PRN PRN Reason: Shortness of Breath/Wheezing Last Admin: 06/08/21 02:34 Dose: 2.5 mg Documented by: BETH Albuterol/Ipratropium (Albuterol/Iprat 2.5/0.5mg 3 Ml Ampul.Neb) 3 ml INHALE RQ6H WHILE AWAKE [facility] Last Admin: 06/09/21 08:01 Dose: 3 ml Documented by: JAYE Diltiazem HCl (Diltiazem Hcl Cd 240 Mg Cap.Er.Deg) 240 mg PO DAILY [facility]; Protocol Last Admin: 06/09/21 09:18 Dose: 240 mg Documented by: YUN Furosemide (Furosemide 40 Mg/4 Ml Vial) 40 mg IVPUSH DAILY [facility]; Protocol Last Admin: 06/09/21 09:18 Dose: 40 mg Documented by: YUN Heparin Sodium (Porcine) (Heparin Sodium,Porcine 5,000 Unit/Ml Vial) 5,000 unit SUBCUT Q8H [facility] Last Admin: 06/09/21 09:17 Dose: 5,000 unit Documented by: YUN Insulin Glargine (Insulin Glargine,Hum.Rec.Anlog 100 Unit/Ml 10 Ml Vial) 20 unit SUBCUT BEDTIME [facility] Last Admin: 06/08/21 21:43 Dose: 20 unit Documented by: MARIBEL Insulin Human Lispro (Insulin Lispro 100 Unit/Ml 3 Ml Vial) 0 unit SUBCUT QIDACHS [facility]; Protocol Last Admin: 06/09/21 12:26 Dose: 8 unit Documented by: YUN Methadone HCl (Methadone Hcl 20 Mg/2 Ml Oral.Conc) 50 mg PO DAILY [facility] Last Admin: 06/09/21 09:17 Dose: 50 mg Documented by: YUN Ondansetron HCl (Ondansetron Hcl 4 Mg/2 Ml Vial) 4 mg IVPUSH Q8H PRN PRN Reason: Nausea Pharmacy Consult (Consult Rx Perform Med Rec) 1 each MISCELLANE ONCE PRN PRN Reason: Consult order Labs CBC & Chem 7: 06/09/21 06:29 06/09/21 06:29 Labs: Laboratory Results - last 24 hr 06/08/21 06/08/21 06/09/21 16:50 21:35 06:29 MCV 97.5 MCH 30.3 MCHC 31.0 RDW 12.2 Plt Count 311 MPV 9.0 L Immature Gran % (Auto) 0.6 H Neut % (Auto) 77.2 H Lymph % (Auto) 14.0 L [place] % (Auto) 6.8 Eos % (Auto) 1.0 Baso % (Auto) 0.4 Lymph # (Auto) 1.4 [place] # (Auto) 0.7 Eos # (Auto) 0.1 Baso # (Auto) 0.0 Abs Immat Gran (auto) 0.06 H Absolute Neuts (auto) 7.7 Absolute Nucleated RBC 0.000 Nucleated RBC % (auto) 0.0 VBG pH VBG pCO2 VBG pO2 VBG HCO3 VBG O2 Saturation VBG Base Excess Anion Gap Estim Creat Clear Calc Estimated GFR POC Glucose 174 H 194 H Random Glucose Calcium Phosphorus Magnesium Albumin 06/09/21 06/09/21 06/09/21 06:29 06:31 07:22 MCV MCH MCHC RDW Plt Count MPV Immature Gran % (Auto) Neut % (Auto) Lymph % (Auto) [place] % (Auto) Eos % (Auto) Baso % (Auto) Lymph # (Auto) [place] # (Auto) Eos # (Auto) Baso # (Auto) Abs Immat Gran (auto) Absolute Neuts (auto) Absolute Nucleated RBC Nucleated RBC % (auto) VBG pH 7.32 VBG pCO2 78 VBG pO2 32 VBG HCO3 41 H VBG O2 Saturation 45.0 VBG Base Excess 11.2 Anion Gap 12 Estim Creat Clear Calc 99.7 Estimated GFR > 60 POC Glucose 132 H Random Glucose 128 H Calcium 9.8 Phosphorus 3.9 Magnesium 1.9 Albumin 3.7 06/09/21 11:10 MCV MCH MCHC RDW Plt Count MPV Immature Gran % (Auto) Neut % (Auto) Lymph % (Auto) [place] % (Auto) Eos % (Auto) Baso % (Auto) Lymph # (Auto) [place] # (Auto) Eos # (Auto) Baso # (Auto) Abs Immat Gran (auto) Absolute Neuts (auto) Absolute Nucleated RBC Nucleated RBC % (auto) VBG pH VBG pCO2 VBG pO2 VBG HCO3 VBG O2 Saturation VBG Base Excess Anion Gap Estim Creat Clear Calc Estimated GFR POC Glucose 306 H Random Glucose Calcium Phosphorus Magnesium Albumin Microbiology Microbiology Results: Microbiology 06/06/21 16:05 Blood Culture - Preliminary Blood - Venous No growth after 48 hours. 06/06/21 14:50 Blood Culture - Preliminary Blood - Venous No growth after 48 hours. Assessment and Plan (1) CO2 retention: Status: Acute (2) Acute on chronic respiratory failure with hypoxia and hypercapnia: Status: Acute Plan 51-year-old lady with underlying morbid obesity, asthma/ COPD overlap syndrome, obesity hypoventilation, on 2 L of supplemental oxygen, nocturnal BiPAP hypogammaglobulinemia on IVIG, opioid dependence on methadone, diabetes mellitus, hypertension, admitted on 06/06/2021 with dyspnea and hypoxia requiring BiPAP support.? Acute on chronic hypoxic hypercapnic respiratory failure Secondary to COPD exacerbation, CO2 retention , pulmonary edema Responded well to BiPAP treatment in ICU Continue IV Lasix Continue steroids and oxygen supplement BiPAP at bedtime CHF exacerbation Continue IV Lasix Changed to p.o. Lasix by tomorrow Traction alkalosis Secondary to diuresis Started on Diamox Follow BMP Lung mass New 2.5 x 0.5 cm rectangular shaped radiopaque density that projects over the left medial chest of uncertain etiology. To repeat images when she is more stable and follow-up with pulmonology as outpatient Opioid dependence continue methadone Hypertension next Lyme continue Cardizem, lisinopril Controlled DVT PPX Lovenox Need for overnight stay, the patient still improving from respiratory failure event, requiring IV diuresis for pulmonary edema to prevent decompensation. Quality Stroke Does the patient have a stroke diagnosis?: No VTE Prior VTE?: No VTE Risk Level:: Medical - moderate - high VTE Device Contraindication: Treatment Not Indicated VTE Drug Contraindication: N/A - Med Ordered
[2021-06-09] MEDS: predniSONE 20 MG TABLET 40 MG PO (15:35)
[2021-06-09 16:31] LABS: Glucose, Whole Blood 142 mg/dL (60-115)
[2021-06-09 20:50] LABS: Glucose, Whole Blood 438 mg/dL (60-115)
[2021-06-09] MEDS: Insulin Glargine,Hum.rec.anlog 100 UNIT/ML 10 ML VIAL 20 UNIT SUBCUT (21:52)
[2021-06-10] VITALS: BP 138/87; PULSE 89; RESP 15; O2SAT 94
[2021-06-10] MEDS: Heparin Sodium,Porcine 5,000 UNIT/ML VIAL 5000 UNIT SUBCUT ×2 (03:01→08:37)
[2021-06-10 03:12] LABS: Glucose, Whole Blood 418 mg/dL (60-115)
[2021-06-10 03:42] VITALS: BP 124/85; PULSE 95; RESP 15; TEMP 35.7; O2SAT 94
[2021-06-10] MEDS: Insulin Lispro 100 UNIT/ML 3 ML VIAL 10 UNIT SUBCUT (03:44)
[2021-06-10] MEDS: Insulin Regular, Human 100 UNIT/ML 3 ML VIAL 9 UNIT IVPUSH (03:46)
[2021-06-10 06:00] VITALS: BMI 36.6
[2021-06-10 06:43] LABS: Hematocrit 46.4 % (37.0-47.0); Hemoglobin 14.4 g/dl (12.0-16.0); Mean Corpuscular Hemoglobin 29.6 pg (27.0-33.0); Mean Corpuscular Volume 95.3 fL (80.0-98.0); Mean Platelet Volume 9.5 fL (9.4-12.3); Platelet Count 335 X10*3/uL (160-400); Red Blood Count 4.87 X10*6/uL (4.20-5.50); Red Cell Distribution Width 12.2 % (11.0-16.0); White Blood Count 11.3 X10*3/uL (4.8-10.8)
[2021-06-10 07:03] LABS: Anion Gap 13 (12-20); Blood Urea Nitrogen 20 mg/dL (9-16); Carbon Dioxide 30 mmol/L (22-29); Chloride 100 mmol/L (96-108); Creatinine Clr Calc Pharmacy 100.1; Estimated Glomerular Filt Rate > 60; Glucose Random 231 mg/dL (60-115); Potassium 3.9 mmol/L (3.3-5.1); Sodium 139 mmol/L (135-145)
[2021-06-10] MEDS: Insulin Lispro 100 UNIT/ML 3 ML VIAL SUBCUT ×2 (07:30→11:51)
[2021-06-10] MEDS: Albuterol/Iprat 2.5/0.5MG 3 ML AMPUL.NEB INHALE (07:40)
[2021-06-10 07:41] VITALS: PULSE 80; RESP 18; O2SAT 98
[2021-06-10 07:42] VITALS: PULSE 80; RESP 16; O2SAT 98
[2021-06-10 08:00] VITALS: BP 136/85; PULSE 79; RESP 18; TEMP 36.7; O2SAT 96
[2021-06-10 08:08] LABS: Glucose, Whole Blood 194 mg/dL (60-115)
[2021-06-10] MEDS: acetaZOLAMIDE sodium 500 MG VIAL IVPUSH (08:37)
[2021-06-10] MEDS: dilTIAZem HCL CD 240 MG CAP.ER.DEG PO (08:37)
[2021-06-10] MEDS: methADONE HCl 20 MG/2 ML ORAL.CONC 50 MG PO (08:37)
[2021-06-10] MEDS: predniSONE 20 MG TABLET 40 MG PO (08:37)
--- NOTE | 2021-06-10 11:34 | PM.DS ---
DS: Providers Provider Date of Service: 06/10/21 Date of admission: 06/06/21 16:44 Primary care physician: [facility] DS: Diagnosis Discharge Diagnosis (1) CO2 retention: Status: Acute (2) Acute on chronic respiratory failure with hypoxia and hypercapnia: Status: Acute (3) Acute exacerbation of chronic obstructive pulmonary disease: Status: Acute (4) Congestive heart failure: Status: Acute DS: Summary Hospital Course Hospital Course: Admission note HPI 51-year-old lady with underlying morbid obesity, asthma/ COPD overlap syndrome, obesity hypoventilation, on 2 L of supplemental oxygen, nocturnal BiPAP hypogammaglobulinemia on IVIG, opioid dependence on methadone, diabetes mellitus, hypertension, admitted on 06/06/2021 with dyspnea and hypoxia requiring BiPAP support.? On ER evaluation patient noted to be in acute on chronic hypoxic and hypercapnic respiratory failure likely secondary to exacerbation of underlying congestive heart failure.? She has been started on IV Diamox and admitted to intensive care unit. Hospital course The patient was admitted to the intensive care unit for treatment of Acute on chronic hypoxic hypercapnic respiratory failure Secondary to COPD exacerbation, CO2 retention and heart failure started on IV Lasix, steroids and BiPAP with good response over the course of ICU stay for 2 nights. Transferred to the medical floor once more stable. Advised to use BiPAP at nighttime and with every naps. Echo was done but limited and was with poor quality showing fairly normal systolic function of the heart She she developed Traction alkalosis from the usage of Lasix. Started on Diamox with good response. CT scan reported new Lung mass of 2.5 x 0.5 cm rectangular shaped radiopaque density that projects over the left medial chest of uncertain etiology. Continue prednisone as prescribed To use BiPAP at bedtime and with naps To repeat images when she is more stable and follow-up with pulmonology as outpatient Time Spent with Patient Time attestation: Total time spent providing and/or coordinating discharge services: Discharge coordination time: Greater than 30 minutes Quality: Stroke Does the patient have a stroke diagnosis?: No Physical Exam Vital Signs: Vital Signs: Last Vital Signs Temp 98.1 F 06/10/21 08:00 Pulse 79 06/10/21 08:00 Resp 18 06/10/21 08:00 BP 136/85 06/10/21 08:00 Pulse Ox 96 06/10/21 08:00 Oxygen Flow Rate 4 06/06/21 14:04 BMI result Body Mass Index 36.6 Const: Other: Constitutional : Alert, oriented, not in distress Neck : Normal inspection, Supple Cardiovascular : RRR, S1 S2, no lower extremity edema Respiratory : Decreased bilateral air entry, no wheezes or crackles Gastrointestinal: soft, lax, Normal bowel sounds, Non tender Skin : Warm, Dry Neurological : Alert & oriented x3, No focal deficit DS: Data Data Completed and Pending Completed studies during hospitalization [Text1]: Procedures Assistance with Respiratory Ventilation, 24-96 Consecutive Hours, Continuous Positive Airway Pressure (05/18/21) Assistance with Respiratory Ventilation, Less than 24 Consecutive Hours, Continuous Positive Airway Pressure (02/21/21) Labs on day of discharge: Laboratory Results - last 24 hr 06/09/21 06/09/21 06/10/21 16:24 20:37 03:08 WBC RBC Hgb Hct MCV MCH MCHC RDW Plt Count MPV Absolute Nucleated RBC Nucleated RBC % (auto) Sodium Potassium Chloride Carbon Dioxide Anion Gap BUN Creatinine Estim Creat Clear Calc Estimated GFR POC Glucose 142 H 438 H* 418 H* Random Glucose Calcium 06/10/21 06/10/21 06/10/21 06:03 06:03 08:04 WBC 11.3 H RBC 4.87 Hgb 14.4 Hct 46.4 MCV 95.3 MCH 29.6 MCHC 31.0 RDW 12.2 Plt Count 335 MPV 9.5 Absolute Nucleated RBC 0.000 Nucleated RBC % (auto) 0.0 Sodium 139 Potassium 3.9 Chloride 100 Carbon Dioxide 30 H Anion Gap 13 BUN 20 H Creatinine 0.67 Estim Creat Clear Calc 100.1 Estimated GFR > 60 POC Glucose 194 H Random Glucose 231 H Calcium 10.0 Preliminary micro results at discharge 06/06/21 16:05 Blood Culture - Preliminary Blood - Venous No growth after 48 hours. 06/06/21 14:50 Blood Culture - Preliminary Blood - Venous No growth after 48 hours. Discharge Plan Discharge Patient Disposition: Home, Self-Care Discharge Diagnosis: COPD exacerbation with CO2 retention Respiratory failure with hypercapnia Referrals: [facility] [Outside] - 1 Week Center,[facility] [Primary Care Provider] - 1 Week Discharge Medications: New prednisone 20 mg Tablet 40 mg PO DAILY 3 Days Qty: 6 0RF Continued tiotropium bromide [Spiriva with HandiHaler] 18 mcg capsule, w/inhalation device 1 cap inhalation DAILY Qty: 30 11RF immun glob [id number] 0-50 10 gram recon soln 40 g IV Q4W Qty: 2 12RF ipratropium-albuterol 0.5 mg-3 mg(2.5 mg base)/3 mL solution for nebulization 3 ml inhalation Q4H PRN (Reason: for wheezing) Qty: 540 6RF sodium chloride 3 % solution for nebulization 4 ml inhalation BID Qty: 240 3RF gabapentin 100 mg capsule 1 cap PO BID 0RF diltiazem HCl [Tiadylt ER] 360 mg capsule,extended release 24 hr 1 cap PO DAILY 0RF rosuvastatin 5 mg tablet 1 tab PO BEDTIME 0RF Daliresp 500 mcg tablet 1 tab PO DAILY 0RF lidocaine 5 % adhesive patch,medicated 1 patch topical DAILY 0RF insulin lispro [Humalog U-100 Insulin] 100 unit/mL solution See Protocol sliding scale dose subcut TIDAC 0RF Protocol: Insulin Correction Scale Less than or equal to 110 ---- Give (units): 0 111 to 150 Give (units): 0 151 to 200 Give (units): 2 201 to 250 Give (units): 4 251 to 300 Give (units): 6 301 to 350 Give (units): 8 Greater than 350 Give (units): 10 Call MD if Blood Glucose > : 350 lisinopril 20 mg tablet 20 mg PO DAILY Qty: 30 0RF metformin 500 mg tablet extended release 24 hr 2 tab PO BID 0RF prednisone 10 mg tablet 20 mg PO DAILY 0RF prednisone 10 mg tablet 10 mg PO BEDTIME 0RF Arnoldo-24 400 mg capsule,extended release 24hr 800 mg PO DAILY 0RF methadone 10 mg/mL Concentrate 49 mg PO DAILY 0RF ergocalciferol (vitamin D2) 1,250 mcg (50,000 unit) capsule 1,250 mcg PO QWEEK 0RF Lantus U-100 Insulin 100 unit/mL solution 45 unit subcut BEDTIME 0RF Label Comments: pt states she takes 45 units at home, confirmed with pharmacy 05/10 montelukast 10 mg tablet 10 mg PO BEDTIME 0RF albuterol sulfate [ProAir HFA] 90 mcg/actuation HFA aerosol inhaler 2 puff inhalation Q4H PRN (Reason: Shortness Of Breath Or Wheezing) 0RF loratadine [Claritin] 10 mg tablet 10 mg PO DAILY 0RF sennosides [Natural Senna Laxative] 8.6 mg tablet 8.6 mg PO BEDTIME PRN (Reason: constipation) Qty: 30 3RF Brovana 15 mcg/2 mL solution for nebulization 2 ml inhalation Q12H 30 Days Qty: 120 11RF budesonide 0.5 mg/2 mL suspension for nebulization 0.5 mg inhalation BID Qty: 120 11RF omeprazole 40 mg capsule,delayed release(DR/EC) 40 mg PO DAILY 30 Days Qty: 30 3RF Discharge Orders: Discharge Order (Routine); Ordered 06/10/21 Ordered By: Luis E Bond Diet: advance to usual diet and low salt diet Activity on Discharge: As tolerated Stand Alone Forms: Patient Portal Discharge page Care Plan Goals: Read below Health Concerns: Read below Plan of Treatment: Read below Assessment: You were admitted to the ICU for treatment of acute respiratory failure requiring BiPAP treatment with good response. Your fine to be retaining a lot of CO2. You will need to use your BiPAP at home with every night up. Continue prednisone as prescribed Low-sodium diet To follow-up with pulmonology as outpatient
--- NOTE | 2021-06-10 11:39 | MHC.CM.PN ---
Patient has been medically cleared for dc to home today, self care.
--- NOTE | 2021-06-10 11:46 | W.MHC.F2F ---
Service Date Service Date: 06/10/21 Encounter Date of encounter: 06/10/21 Reasons for Services Signs and symptoms assessed: Respiratory failure Reason for half-way: teach disease management Homebound: Leaving the home is medically contraindicated at this time without the asist of a device and/or another person due th the listed conditions above and below. Reason homebound: unsteady gait / fall risk Certification: Based on the above findings, I certify that this patient is confined to the home and needs intermittent half-way care, physical therapy and/or speech therapy, or continues to need occupational therapy. The patient is under my care, and I have initiated the establishment of the plan of care. The patient will be followed by a physician who will periodically review the plan of care.
[2021-06-10 11:49] LABS: Glucose, Whole Blood 240 mg/dL (60-115)
--- NOTE | 2021-06-10 11:55 | MHC.CM.PN ---
Patient has been medically cleared for dc to home today, with services. It appears that Patient was active with Nancy GARCIA, who has been notified of today's dc (dc summary has been sent via [employer] and fax and uploaded into [employer].
== END 2021-06-10 13:45 | disposition home health service (06) | DRG 194 ==
LOC: HO.ED 16:34 → HO.EDOVER 16:53 → HO.ICU 18:36 → HO.IMC 06-09 02:29
PROVIDERS: Registered Nurse Community Health; Admitting Provider Internal Medicine Pulmonary Disease; Emergency Provider Emergency Medicine; PCP Family Medicine; Visit Provider Student in an Organized Health Care Education/Training Program
DX: I11.0 Hypertensive heart disease with heart failure (principal); J96.21 Acute and chronic respiratory failure with hypoxia; E87.3 Alkalosis; J44.1 Chronic obstructive pulmonary disease with (acute) exacerbation; E66.2 Morbid (severe) obesity with alveolar hypoventilation; Z99.81 Dependence on supplemental oxygen; R91.8 Other nonspecific abnormal finding of lung field; F11.20 Opioid dependence, uncomplicated; I50.33 Acute on chronic diastolic (congestive) heart failure; E11.9 Type 2 diabetes mellitus without complications; F17.210 Nicotine dependence, cigarettes, uncomplicated; Z68.36 Body mass index [BMI] 36.0-36.9, adult; Z71.6 Tobacco abuse counseling; Z79.4 Long term (current) use of insulin; Z79.52 Long term (current) use of systemic steroids; Z79.899 Other long term (current) drug therapy
CPT/HCPCS: 36415; 36600; 71045; 80048; 80053; 80076; 80307; 82040; 82803; 82947; 83605; 83735; 83880; 84100; 84484; 85025; 85027; 87040; 87635; 93005; 94640; 94644; 94660; 96365; 96375; 99285; 99291; J0696; J1940; J2405; J2930

== ENCOUNTER 2021-06-15 09:21 | Outpatient (REF) | payer MEDICAID, SELFPAY | END 2021-06-15 09:22 | disposition home or self-care (01) | LOC: HO.MDS 09:21 | PROVIDERS: Visit Provider Hospitalist | DX: D80.1 Nonfamilial hypogammaglobulinemia (principal) | CPT/HCPCS: 96365; 96366; J1569 ==

== ENCOUNTER → 2021-06-22 15:42 | Outpatient (BNVA) | payer MEDICAID, SELFPAY | PROVIDERS: PCP Family Medicine; Visit Provider Hospitalist | DX: Z13.89 Encounter for screening for other disorder (principal) ==

== ENCOUNTER 2021-06-23 09:23 | Outpatient (REF) | payer MEDICAID, SELFPAY ==
--- NOTE | ~2021-06-23 | XR_ITS ---
EXAMINATION: XR CHEST CLINICAL INFORMATION: COPD COMPARISON: Previous chest x-ray most recent May 2021 TECHNIQUE: 2 views of the chest were obtained. FINDINGS: The cardiac silhouette is enlarged but stable. Hilar and mediastinal contours are unremarkable. There are areas of increased density seen in the lungs likely related to healing bilateral rib fractures of varying ages. There is question of increased density in the left upper lobe that is between the anterior second and third and posterior fifth and sixth ribs and may be related to pulmonary finding. This area measures approximately 1.5 cm. The lungs are otherwise clear. There is no pleural effusion or pneumothorax. There are degenerative changes of the spine. XR/XR chest 2V IMPRESSION: Stable enlargement of the cardiac silhouette. Multiple bilateral rib fractures of varying ages. 1.5 cm increased density projecting over the left upper lobe. It is uncertain whether this is related to rib fracture or could represent a pulmonary finding. Chest x-ray follow-up recommended.
[2021-06-23 09:51] LABS: MANUAL DIFF FLAG NO
[2021-06-23 09:57] LABS: Basophils Percent Auto 0.2 % (0-2); Eosinophils Percent Auto 0.2 % (0-4); Hematocrit 38.7 % (37.0-47.0); Imm Gran Abs Auto 0.13 X10*3/uL (0.00-0.03); Imm Gran Pct Auto 0.8 % (0.0-0.4); Lymphocytes Absolute Auto 1.6 X10*3/uL (1.2-4.9); Lymphocytes Percent Auto 9.7 % (20-40); Mean Corpuscular Hemoglobin 29.9 pg (27.0-33.0); Mean Corpuscular Volume 96.3 fL (80.0-98.0); Monocytes Absolute Auto 0.9 X10*3/uL (0.1-1.2); Monocytes Percent Auto 5.6 % (2-11); Neutrophils Absolute Auto 13.7 x10*3/uL (2.0-8.3); Neutrophils Percent Auto 83.5 % (45-73); Platelet Count 301 X10*3/uL (160-400); Red Blood Count 4.02 X10*6/uL (4.20-5.50); Red Cell Distribution Width 12.5 % (11.0-16.0); White Blood Count 16.4 X10*3/uL (4.8-10.8)
[2021-06-23 10:14] LABS: D Dimer High Sensitivity < 150 NG/ML
[2021-06-23 10:24] LABS: Anion Gap 10 (12-20); Blood Urea Nitrogen 12 mg/dL (9-16); Calcium 9.8 mg/dL (8.4-10.2); Carbon Dioxide 39 mmol/L (22-29); Chloride 95 mmol/L (96-108); Estimated Glomerular Filt Rate > 60; Glucose Random 104 mg/dL (60-115); Potassium 3.7 mmol/L (3.3-5.1); Sodium 140 mmol/L (135-145)
[2021-06-23 15:24] LABS: Erythrocyte Sedimentation Rate 34 MM/HR (0-20)
[2021-06-24 07:10] LABS: Theophylline 2.4
== END 2021-06-23 09:24 | disposition home or self-care (01) ==
LOC: HO.LAB 09:23
PROVIDERS: PCP Family Medicine; Visit Provider Hospitalist
DX: J44.9 Chronic obstructive pulmonary disease, unspecified (principal); Z79.899 Other long term (current) drug therapy
CPT/HCPCS: 36415; 71046; 80048; 80198; 85025; 85379; 85652

== ENCOUNTER 2021-06-27 12:01 | Emergency (ER) | payer MEDICAID, SELFPAY ==
[2021-06-27 13:37] VITALS: BP 150/69; PULSE 104; RESP 18; TEMP 36; O2SAT 94; BMI 39.2
[2021-06-27 15:45] VITALS: BP 151/76; PULSE 72; RESP 16; TEMP 36.8; O2SAT 94
[2021-06-27] MEDS: Lidocaine HCl 2 % MPF 5 ML VIAL INFILTRATI (15:50)
[2021-06-27] MEDS: Diphth,Pertus(ACell),Tet Adult 0.5 ML SYRINGE IM (15:50)
--- NOTE | 2021-06-27 16:13 | ED.WOUNDLAC ---
HPI - Wound/Laceration General Chief Complaint: Wound/Laceration Stated Complaint: Forearm caught on nail Time Seen by Provider: 06/27/21 13:59 Source: patient Mode of arrival: ambulatory History of Present Illness HPI narrative: 51-year-old female with a past medical history of asthma and COPD overlap syndrome on chronic O2, diabetes, hypertension, hyperlipidemia, hypogammaglobulinemia, presenting to the ED complaining of laceration to right forearm since 02:00 s/p hitting a screw that was on a dresser. Tetanus unknown denies injury to the area, numbness, tingling, weakness. Onset (ago): hour(s) Related Data Home Medications Medication Instructions Recorded Confirmed albuterol sulfate 90 mcg/actuation 2 puff INHALATION Q4H PRN 12/30/19 06/06/21 aerosol inhaler (ProAir HFA) loratadine 10 mg tablet (Claritin) 10 mg PO DAILY 12/30/19 06/06/21 montelukast 10 mg tablet 10 mg PO BEDTIME 12/30/19 06/06/21 gabapentin 100 mg capsule 1 cap PO BID 10/14/20 06/06/21 diltiazem HCl 360 mg capsule,24 1 cap PO DAILY 11/16/20 06/06/21 hr,extended release (Tiadylt ER) roflumilast 500 mcg tablet 1 tab PO DAILY 11/16/20 06/06/21 (Daliresp) rosuvastatin 5 mg tablet 1 tab PO BEDTIME 11/16/20 06/06/21 insulin lispro 100 unit/mL See Protocol SUBCUT TIDAC 12/14/20 06/06/21 subcutaneous solution (Humalog U-100 Insulin) lidocaine 5 % topical patch 1 patch TOPICAL DAILY 12/14/20 06/06/21 metformin 500 mg tablet,extended 2 tab PO BID 05/18/21 06/06/21 release 24 hr prednisone 10 mg tablet 10 mg PO BEDTIME 05/18/21 06/06/21 prednisone 10 mg tablet 20 mg PO DAILY 05/18/21 06/06/21 theophylline 400 mg 800 mg PO DAILY 05/18/21 06/06/21 capsule,extended release 24 hr (Arnoldo-24) ergocalciferol (vitamin D2) 1,250 1,250 mcg PO QWEEK 06/06/21 06/06/21 mcg (50,000 unit) capsule methadone 10 mg/mL oral concentrate 49 mg PO DAILY 06/06/21 06/07/21 insulin glargine 100 unit/mL 45 unit SUBCUT BEDTIME 06/07/21 06/07/21 subcutaneous solution (Lantus U-100 Insulin) Previous Rx's Medication Instructions Recorded immune glob,gamma(IgG) 10 40 g IV Q4W #2 ea 06/16/20 [id number]-[id number]-tzmf-IgA 0 to 50 mcg/mL IV solution arformoterol 15 mcg/2 mL solution 2 ml INHALATION Q12H 30 Days #120 09/20/20 for nebulization (Brovana) ml budesonide 0.5 mg/2 mL suspension 0.5 mg (2 mL) INHALATION BID #120 09/20/20 for nebulization ml ipratropium 0.5 mg-albuterol 3 mg 3 ml INHALATION Q4H PRN #540 ml 10/30/20 (2.5 mg base)/3 mL nebulization soln sennosides 8.6 mg tablet (Natural 8.6 mg PO BEDTIME PRN #30 tab 11/24/20 Senna Laxative) sodium chloride 3 % for 4 ml INHALATION BID #240 ml 01/22/21 nebulization lisinopril 20 mg tablet 20 mg PO DAILY #30 tab 02/25/21 omeprazole 40 mg capsule,delayed 40 mg PO DAILY 30 Days #30 cap 05/14/21 release prednisone 20 mg tablet 40 mg PO DAILY 3 Days #6 tab 06/10/21 doxycycline monohydrate 100 mg 100 mg PO BID 14 Days #28 tab 06/23/21 tablet prednisone 20 mg tablet See Rx Instructions PO DAILY 10 06/23/21 Days #15 tab tiotropium bromide 18 mcg capsule 1 cap INHALATION DAILY #30 ea 06/25/21 with inhalation device (Spiriva with HandiHaler) acetaminophen 500 mg tablet 500 mg PO Q6H PRN #20 tab 06/27/21 (Tylenol Extra Strength) cephalexin 500 mg capsule 500 mg PO QID 7 Days #28 cap 06/27/21 ibuprofen 400 mg tablet 400 mg PO Q6H 7 Days #14 tab 06/27/21 Allergies Allergy/AdvReac Type Severity Reaction Status Date / Time No Known Allergies Allergy Verified 05/14/21 09:46 [No Known Allergies*] Review of Systems Review of Systems: Constitutional: No Fever, No Chills ENT/Mouth: No Ear Pain, No Nasal Congestion, No sore throat, No Rhinorrhea, No Swallowing Difficulty Cardiovascular: No Chest Pain, No SOB Respiratory: No Cough, No Sputum, No Wheezing Gastrointestinal: No Nausea, No Vomiting, No Diarrhea, No Constipation, No Abdominal pain Genitourinary:, No Dysuria, No Urinary Frequency, No Urgency, No Flank Pain Musculoskeletal: No joint pain, No Myalgias, No Joint Swelling Skin: + Skin Lesions, No rash Neuro: No Weakness, No Numbness, No Paresthesias Yes all other systems are reviewed and are negative [facility] Past Medical History Attestation statement: The following information was validated with the patient. Medical History Abdominal pain Asthma-COPD overlap syndrome Chronic respiratory failure Chronic respiratory failure Congestive heart failure COPD (chronic obstructive pulmonary disease) Diabetes mellitus Essential hypertension Hyperlipidemia, unspecified Hypogammaglobulinemia Limb swelling Opioid dependence Poor dentition Tobacco abuse Type 2 diabetes mellitus with unspecified complications Surgical History H/O tubal ligation Family History Family History Father Diabetes Other Asthma Social History Social History Household Members: Spouse and Family Household Members Other:: 3 Housing: House Do you presently have visiting nurse or other home services: No Unable to assess alcohol history related to: Unknown Alcohol intake: unknown Patient Tobacco Use Status: Current someday Tobacco user Tobacco use type: Cigarette Cigarettes Per Day: 1 Years Smoked: 35 e-Cigarette/Vaping Use: Currently Using Second Hand Smoke Exposure: No Substance Use Type: Opiates Advance Directives: Yes Advance Directives on File: Yes Advance Directives Date on File: 06/12/21 Patient : No service: No Current occupational status: unemployed and disabled Physical Exam Vital Signs: Vital Signs: Last Vital Signs Temp 98.2 F 06/27/21 15:45 Pulse 72 06/27/21 15:45 Resp 16 06/27/21 15:45 BP 151/76 H 06/27/21 15:45 Pulse Ox 94 06/27/21 15:45 Oxygen Flow Rate 2 06/27/21 13:37 BMI result Body Mass Index 39.2 Const: General: cooperative, healthy appearing, no acute distress and well developed Orientation/consciousness: patient oriented x3 Limitations: no limitations HEENT: Head: Yes normal to inspection Ears: hearing grossly normal bilaterally General nose exam: Normal external nose present Face and sinus: Yes normal facial exam Eyes: General: appearance normal, both eyes and all related structures EOM: EOMs intact bilaterally Neck: Neck: Yes normal visual inspection and Yes no meningeal signs Resp: Effort & Inspection: normal respiratory effort, able to speak in complete sentences, no respiratory distress, no stridor and not tachypneic Cardio: Rate: regular rate Heart sounds: S1 normal heart sound present and S2 normal heart sound present Skin: Other: 3 cm irregular laceration noted to right forearm. Bleeding controlled. Neurovascular intact distally. No surrounding erythema, no drainage Rashes: no rashes Wounds: no wounds Neuro: General: patient oriented x3 and no meningeal signs Gait exam (Neuro): Normal gait present Extrem: General: Yes normal to inspection Course Course Course Narrative: -upon reviewing triage patient reported lung pain and wheeze during triage, this was never reported to this policy writer during history or evaluation. Patient sign 94% on baseline nasal cannula, talking in complete sentences, no evidence of respiratory distress MDM - Wound/Laceration MDM Narrative Medical decision making narrative: 51-year-old female with a past medical history of asthma and COPD overlap syndrome on chronic O2, diabetes, hypertension, hyperlipidemia, hypogammaglobulinemia, presenting to the ED complaining of laceration to right forearm since 02:00 s/p hitting a screw that was on a dresser. On exam mildly tachycardic initially likely from pain, satting 94% on baseline nasal cannula, NAD/nontoxic, physical exam as above. Will repair laceration and give tetanus Differential Diagnosis Differential diagnosis: Likely laceration Medical Records Attestation: I reviewed the patient's medical records. Lab Data Attestation: I reviewed the patient's lab results. Procedures Laceration Laceration 1: Site: upper extremity Side (If applicable): right Size (cm): 3 Description: flap and irregular Depth: simple, single layer Local Anesthetic: lidocaine 1% Amount of anesthesia used (mL): 4 Pre-repair: wound explored and irrigated extensively Skin layer closed with: nylon Size (cm): 4-0 Number of sutures: 7 Discharge Plan Discharge Clinical Impression: Arm laceration Patient Disposition: Home, Self-Care Instructions: Laceration (ED) Additional Instructions: You have a laceration to her on the was closed today in the ED. YOU NEED TO RETURN TO ANY EMERGENCY DEPARTMENT OR URGENT CARE IN 7-10 DAYS TO HAVE THE SUTURES TAKEN OUT Keflex as an antibiotic please take as prescribed. Her tetanus was also updated If area begins to look infected, is red, there is drainage [place] fever please return to the ED Tiene jaleel laceraci?n en oumar que fue cerrada hoy en el servicio de urgencias. DEBE REGRESAR A CUALQUIER SERVICIO DE EMERGENCIA O ATENCI?N DE URGENCIA EN 7-10 D? PARA QUE LE SAQUEN LAS SUTURAS Keflex see antibi?pari, t?estrada seg?n lo prescrito. Carlos t?tanos tambi?n se actualiz?. Si el ?aric comienza a lucir infectada, est? enrojecida, hay secreci?n Fiebre de Aric, regrese al servicio de urgencias. Prescriptions: New cephalexin 500 mg capsule 500 mg PO QID 7 Days Qty: 28 0RF acetaminophen [Tylenol Extra Strength] 500 mg tablet 500 mg PO Q6H PRN (Reason: pain or fever) Qty: 20 0RF ibuprofen 400 mg tablet 400 mg PO Q6H 7 Days Qty: 14 0RF No Action immun glob O-otk-imtx-IgA 0-50 10 gram recon soln 40 g IV Q4W Qty: 2 12RF ipratropium-albuterol 0.5 mg-3 mg(2.5 mg base)/3 mL solution for nebulization 3 ml inhalation Q4H PRN (Reason: for wheezing) Qty: 540 6RF sodium chloride 3 % solution for nebulization 4 ml inhalation BID Qty: 240 3RF Spiriva with HandiHaler 18 mcg capsule, w/inhalation device 1 cap inhalation DAILY Qty: 30 11RF gabapentin 100 mg capsule 1 cap PO BID 0RF diltiazem HCl [Tiadylt ER] 360 mg capsule,extended release 24 hr 1 cap PO DAILY 0RF rosuvastatin 5 mg tablet 1 tab PO BEDTIME 0RF Daliresp 500 mcg tablet 1 tab PO DAILY 0RF lidocaine 5 % adhesive patch,medicated 1 patch topical DAILY 0RF insulin lispro [Humalog U-100 Insulin] 100 unit/mL solution See Protocol sliding scale dose subcut TIDAC 0RF Protocol: Insulin Correction Scale Less than or equal to 110 ---- Give (units): 0 111 to 150 Give (units): 0 151 to 200 Give (units): 2 201 to 250 Give (units): 4 251 to 300 Give (units): 6 301 to 350 Give (units): 8 Greater than 350 Give (units): 10 Call MD if Blood Glucose > : 350 lisinopril 20 mg tablet 20 mg PO DAILY Qty: 30 0RF metformin 500 mg tablet extended release 24 hr 2 tab PO BID 0RF prednisone 10 mg tablet 20 mg PO DAILY 0RF prednisone 10 mg tablet 10 mg PO BEDTIME 0RF Arnoldo-24 400 mg capsule,extended release 24hr 800 mg PO DAILY 0RF methadone 10 mg/mL Concentrate 49 mg PO DAILY 0RF ergocalciferol (vitamin D2) 1,250 mcg (50,000 unit) capsule 1,250 mcg PO QWEEK 0RF Lantus U-100 Insulin 100 unit/mL solution 45 unit subcut BEDTIME 0RF Label Comments: pt states she takes 45 units at home, confirmed with pharmacy 05/10 prednisone 20 mg Tablet 40 mg PO DAILY 3 Days Qty: 6 0RF montelukast 10 mg tablet 10 mg PO BEDTIME 0RF albuterol sulfate [ProAir HFA] 90 mcg/actuation HFA aerosol inhaler 2 puff inhalation Q4H PRN (Reason: Shortness Of Breath Or Wheezing) 0RF loratadine [Claritin] 10 mg tablet 10 mg PO DAILY 0RF sennosides [Natural Senna Laxative] 8.6 mg tablet 8.6 mg PO BEDTIME PRN (Reason: constipation) Qty: 30 3RF Brovana 15 mcg/2 mL solution for nebulization 2 ml inhalation Q12H 30 Days Qty: 120 11RF budesonide 0.5 mg/2 mL suspension for nebulization 0.5 mg inhalation BID Qty: 120 11RF omeprazole 40 mg capsule,delayed release(DR/EC) 40 mg PO DAILY 30 Days Qty: 30 3RF prednisone 20 mg tablet See Rx Instructions PO DAILY 10 Days Qty: 15 0RF Rx Instructions: PO daily; Take 2 tabs daily x 5 days, then 1 tablet daily x 5 days doxycycline monohydrate 100 mg tablet 100 mg PO BID 14 Days Qty: 28 0RF Referrals: Lucila Aguirer DO [Emergency Provider] - 1 week (7-10 days for suture removal) Kelli Benavides MD [Primary Care Provider] - Interventions: ED Discharge Assessment Last Done: 06/27/21 16:32 Discharge Date/Time: 06/27/21 16:33 Print Language: Mozambican
== END 2021-06-27 16:33 | disposition home or self-care (01) ==
PROVIDERS: Emergency Provider Emergency Medicine; PCP Family Medicine
DX: S41.111A Laceration without foreign body of right upper arm, initial encounter (principal); S40.811A Abrasion of right upper arm, initial encounter; J44.9 Chronic obstructive pulmonary disease, unspecified; Y28.9XXA Contact with unspecified sharp object, undetermined intent, initial encounter; Y93.9 Activity, unspecified; Y92.9 Unspecified place or not applicable; Y99.9 Unspecified external cause status; Z99.81 Dependence on supplemental oxygen; F17.210 Nicotine dependence, cigarettes, uncomplicated; Z71.6 Tobacco abuse counseling; Z79.899 Other long term (current) drug therapy
CPT/HCPCS: 12002; 90471; 90715; 99283; 99284

== ENCOUNTER 2021-06-29 10:00 | Outpatient (REF) | payer MEDICAID, SELFPAY ==
--- NOTE | ~2021-06-29 | XR_ITS ---
EXAMINATION: XR CHEST CLINICAL INFORMATION: Abnormal findings on diagnostic imaging COMPARISON: June 06, 2021 and June 23, 2021 TECHNIQUE: 2 views of the chest were obtained. FINDINGS: Bilateral peripheral densities are present consistent with known healing rib fractures. No acute parenchymal disease, pneumothorax, or pleural effusion. Heart normal size. No evidence of pulmonary edema. XR/XR chest 2V IMPRESSION: Bilateral healing rib fractures without acute disease.
[2021-06-29 10:59] LABS: Hematocrit 40.5 % (37.0-47.0); Mean Corpuscular HGB Conc 29.6 g/dl (31.0-35.0); Mean Corpuscular Hemoglobin 29.1 pg (27.0-33.0); Mean Corpuscular Volume 98.3 fL (80.0-98.0); Mean Platelet Volume 9.2 fL (9.4-12.3); Platelet Count 281 X10*3/uL (160-400); Red Blood Count 4.12 X10*6/uL (4.20-5.50); Red Cell Distribution Width 13.2 % (11.0-16.0); White Blood Count 14.1 X10*3/uL (4.8-10.8)
[2021-06-29 11:04] LABS: INTERNATIONAL NORM RATIO 0.9 (0.9-1.1)
[2021-06-29 11:06] LABS: Estimated Average Glucose 157 mg/dL; Hemoglobin A1c % 7.1 %
[2021-06-29 11:30] LABS: Creatinine Urine 51.85 mg/dL; Microalbum/Creatinine Ratio Ur 13.5 ug/mg cr
[2021-06-29 11:46] LABS: Alanine Aminotransferase 26 U/L (0-31); Albumin Level 3.9 g/dL (3.5-5.0); Alkaline Phosphatase 74 U/L (39-117); Aspartate Amino Transferase 21 U/L (5-31); Bilirubin Direct < 0.2 mg/dL (0.0-0.5); Bilirubin Total < 0.2 mg/dL (0.0-1.0); Cholesterol 201 mg/dL; Estimated Glomerular Filt Rate > 60; HDL Cholesterol 99 mg/dL; LDL Cholesterol Calculated 90 mg/dl; Total Protein 6.7 g/dL (6.5-8.0); Triglycerides 61 mg/dL
[2021-06-29 11:47] LABS: HIV AB/AG Nonreactive (Nonreactive); HIV Num 1 0.06 S/CO (0.00-0.99)
[2021-06-29 11:50] LABS: TSH reflex Free T4 1.04 uIU/mL (0.32-4.0)
--- NOTE | 2021-06-29 13:47 | PFT_ITS ---
FLOWS: FEV1 27% of predicted at 0.67 L. FVC 48% of predicted at 1.50 L. FEV1 to FVC ratio of 0.41. Positive bronchodilator response. LUNG VOLUMES: Total lung capacity 100% of predicted at 4.60 L. Residual volume 199% of predicted at 3.33 L. Slow vital capacity 43% of predicted at 1.27 L. Expiratory reserve volume 9% of predicted at 0.09 L. Diffusion capacity is moderately decreased, diffusion capacity corrects to normal after adjustment for alveolar ventilation. In comparison to pulmonary function test from February of 2020, FEV1, FVC, and ERV have been without significant changes; total lung capacity has increased by 0.46 L; residual volume has increased by 0.51 L; slow vital capacity has decreased by 0.15 L; diffusion capacity has increased by 0.30 mL/minute per mmHg. IMPRESSION: Severe obstructive ventilatory defect with positive bronchodilator response. Increased residual volume suggests air trapping. Decreased expiratory reserve volume suggests extrathoracic restriction, likely secondary to abdominal obesity. MD MY Resendez/MODL / [id number]
[2021-07-01 13:46] LABS: HCV Log PCR 6.29 Log IU/mL (NOT DETECTED); HepC Viral Load 1970000 IU/mL (NOT DETECTED)
[2021-07-02 13:56] LABS: Calcium (PTHI) 10.1 mg/dL (8.6-10.4); PTHI 29 pg/mL (16-77)
[2021-07-03 18:27] LABS: FIB-ALT 24 U/L (6-29); FIB-Alpha-2-Macroglobulin 352 mg/dL (106-279); FIB-Apolipoprotein A1 254 mg/dL (101-198); FIB-GGT 69 U/L (3-70); FIB-Haptoglobin 241 mg/dL (43-212); FIB-Total Bilirubin 0.3 mg/dL (0.2-1.2); Liver Fibrosis Score 0.11; Liver Fibrosis Stage F0; Nec Inflam Act Grade A0; Nec Inflam Act Score 0.08
== END 2021-06-29 10:01 | disposition home or self-care (01) ==
LOC: HO.RESP 10:00
PROVIDERS: Absent Provider Family Medicine; PCP Family Medicine; Visit Provider Hospitalist
DX: Z11.4 Encounter for screening for human immunodeficiency virus [HIV] (principal); J44.9 Chronic obstructive pulmonary disease, unspecified; B18.2 Chronic viral hepatitis C; R93.89 Abnormal findings on diagnostic imaging of other specified body structures
CPT/HCPCS: 36415; 71046; 80061; 80076; 81596; 82043; 82306; 82565; 83036; 83970; 84443; 85027; 85610; 87389; 87522; 94060; 94727; 94729

== ENCOUNTER 2021-07-16 09:58 | Outpatient (REF) | payer MEDICAID, SELFPAY ==
--- NOTE | ~2021-07-16 | XR_ITS ---
EXAMINATION: XR CHEST CLINICAL INFORMATION: Chest pain and shortness of breath COMPARISON: Previous chest x-rays most recent June 2021 TECHNIQUE: 2 views of the chest FINDINGS: The cardiac and mediastinal contours are stable. There are peripheral nodular densities seen bilaterally, right greater than left, likely related to old bilateral rib fractures. Lungs are otherwise clear. There is no pleural effusion or pneumothorax. There are degenerative changes of the spine. XR/XR chest 2V IMPRESSION: No evidence for acute disease in the chest.
== END 2021-07-16 09:59 | disposition home or self-care (01) ==
LOC: HO.MDS 09:58
PROVIDERS: PCP Family Medicine; Visit Provider Hospitalist
DX: D80.1 Nonfamilial hypogammaglobulinemia (principal); R07.9 Chest pain, unspecified
CPT/HCPCS: 71046; 96365; 96366; J1569

== ENCOUNTER → 2021-07-24 11:19 | Outpatient (BNVA) | payer MEDICAID, SELFPAY | PROVIDERS: PCP Family Medicine; Visit Provider Hospitalist | DX: R93.89 Abnormal findings on diagnostic imaging of other specified body structures (principal); R91.1 Solitary pulmonary nodule; R07.9 Chest pain, unspecified; J44.1 Chronic obstructive pulmonary disease with (acute) exacerbation; Z72.0 Tobacco use; J45.901 Unspecified asthma with (acute) exacerbation; J96.11 Chronic respiratory failure with hypoxia; J96.12 Chronic respiratory failure with hypercapnia; D80.1 Nonfamilial hypogammaglobulinemia ==

== ENCOUNTER 2021-07-30 09:04 | Inpatient (IN) | payer MEDICAID, SELFPAY ==
[2021-07-30] VITALS (21 sets, daily range): BP systolic 128–188; BP diastolic 68–107; PULSE 100–126; RESP 17–33; TEMP 36.5–37.3; O2SAT 82–94; BMI 39.2; BMI 39.1
--- NOTE | ~2021-07-30 | XR_ITS ---
EXAMINATION: XR CHEST CLINICAL INFORMATION: Shortness of breath COMPARISON: Previous chest x-ray and chest CT 07/30/2021 TECHNIQUE: Frontal view of the chest was obtained. FINDINGS: The cardiac and mediastinal contours are normal. There is diffuse bronchial wall thickening and nodular opacities seen throughout the lungs suggestive of a bronchopneumonia. This appears slightly increased from previous exams. There is no pleural effusion or pneumothorax. Healing bilateral rib fractures. Degenerative changes of the spine. XR/XR chest 1V IMPRESSION: Worsening bilateral bronchopneumonia.
--- NOTE | ~2021-07-30 | XR_ITS ---
EXAMINATION: XR CHEST CLINICAL INFORMATION: Dyspnea COMPARISON: . TECHNIQUE: Frontal view of the chest was obtained. FINDINGS: Bilateral patchy airspace opacities. Bilateral parahilar bronchial thickening. Pulmonary venous congestion without overt edema. No pleural effusion or pneumothorax. XR/XR chest 1V IMPRESSION: Bilateral patchy airspace opacities and bronchial thickening could be compatible with an atypical pneumonitis.
--- NOTE | ~2021-07-30 | CT_ITS ---
EXAMINATION: CT CHEST WITHOUT CONTRAST CLINICAL INFORMATION: cough, L sided pain hx of rib fracture COMPARISON: Chest radiograph earlier today and CT chest 10/14/2020 TECHNIQUE: Multidetector volumetric CT imaging of the chest was done. Axial MIP volume rendering provided. Sagittal and coronal reformatted images were obtained. This CT examination was performed using dose optimization techniques as appropriate, variously including the following: *Automated exposure control *Adjustment of mA and/or kV according to patient size (this includes techniques or standardized protocols for targeted exams where dose is matched to indication/reason for exam; i.e. extremities or head) *Use of iterative reconstruction technique DLP: 343 mGy-cm FINDINGS: LUNGS: There are new diffuse pulmonary opacities involving all lobes. Some appear as more discrete infiltrates, some are tree-in-bud type opacities. These are all new when compared to the 10/14/2020 study and are suspicious for inflammatory disease. MEDIASTINUM: The mediastinum is unremarkable. PLEURA: There is no pleural effusion. No pleural mass or thickening. AXILLA: No lymphadenopathy. UPPER ABDOMEN: Unremarkable. OSSEOUS STRUCTURES: Unremarkable. CT/CT chest wo con IMPRESSION: Diffuse new (since 10/14/2020) pulmonary abnormalities with tree-in-bud opacities and small areas of infiltrate. Findings suggestive of inflammatory disease/bronchopneumonia. Recommend follow-up CT scan after treatment to document clearing Fleischner guidelines were followed.
--- NOTE | ~2021-07-30 | CT_ITS ---
EXAMINATION: CT CHEST WITHOUT CONTRAST CLINICAL INFORMATION: Worsening SOB. COMPARISON: CT chest 05/30/2021. TECHNIQUE: Multidetector volumetric CT imaging of the chest was done. Axial MIP volume rendering provided. Sagittal and coronal reformatted images were obtained. This CT examination was performed using dose optimization techniques as appropriate, variously including the following: *Automated exposure control *Adjustment of mA and/or kV according to patient size (this includes techniques or standardized protocols for targeted exams where dose is matched to indication/reason for exam; i.e. extremities or head) *Use of iterative reconstruction technique DLP: 432 mGy-cm FINDINGS: Exam is limited due to breathing throughout the exam. [employer] ASSISTANT: Unremarkable. LUNGS: The expanded lungs reveal multiple ill-defined nodules scattered throughout both lungs with patchy consolidation right upper lobe posterior segment, new left upper lobe anterior segment infiltrate slightly improved, slightly increased patchy infiltrative changes left lower lobe medial basal segment, stable. There is dependent bibasilar atelectasis/consolidation that has slightly increased. There is mild bronchial wall thickening in secondary and tertiary bronchioles. There are a few cystic changes in both lower lobe superior segments and bilateral upper lobe posterior segments. MEDIASTINUM: The thyroid lobes are symmetrical. The central trachea and the bronchi are widely patent. Heart size and great vessels are normal caliber. No pericardial effusion seen. No abnormal size mediastinal or hilar lymph nodes seen. PLEURA: There is no pleural effusion. No pleural mass or thickening. AXILLA: The axillae and the chest wall is unremarkable. UPPER ABDOMEN: Visualized liver, spleen, pancreas and bilateral adrenal glands unremarkable. OSSEOUS STRUCTURES: UNREMARKABLE. CT/CT chest wo con IMPRESSION: Multiple ill-defined pulmonary nodules throughout both lungs with now patchy new infiltrate in the right upper lobe posterior segment and slight worsening of infiltrate in left medial basal segment. There is also increased bilateral lower lobe dependent consolidation/atelectasis. There is mild thickening of the tertiary and secondary bronchial wall. The findings are most suggestive of bronchopneumonia secondary to inflammatory or infectious etiology. Fleischner guidelines were followed.
--- NOTE | 2021-07-30 09:21 | ED_ITS ---
HPI - SOB/Dyspnea General Chief Complaint: Dyspnea Stated Complaint: DIFF BREATHING,HOME IN THE O2 80'S,ON CPAP NOW Time Seen by Provider: 07/30/21 09:10 Source: patient, EMS and old records reviewed Mode of arrival: EMS Limitations: no limitations History of Present Illness HPI Narrative: started doxycycline on 07/24 for increased cough, taking 20mg prednisone a day EMS found her on home O2 low 80s, states cough has been worse and she has left sided worse pleuritic chest pain given duoneb and nitropaste put on CPAP with good relief MD elicited complaint: shortness of breath, cough and chest pain (L sided posterior rib pain) Pertinent past history: COPD and asthma Onset (ago): day(s) (3) Context: recent illness Timing: improved Severity: severe Exacerbating factors: exertion and coughing Relieving factors: oxygen, rest and bronchodilators Known history of: COPD and asthma Associated symptoms: chest pain, cough, wheezing and sputum production Treatment prior to arrival: oxygen, bronchodilator, NIPPV and nitroglycerin Related Data Home Medications Medication Instructions Recorded Confirmed albuterol sulfate 90 mcg/actuation 2 puff INHALATION Q4H PRN 12/30/19 07/30/21 aerosol inhaler (ProAir HFA) loratadine 10 mg tablet (Claritin) 10 mg PO DAILY 12/30/19 07/30/21 montelukast 10 mg tablet 10 mg PO BEDTIME 12/30/19 07/30/21 gabapentin 100 mg capsule 1 cap PO BID 10/14/20 07/30/21 diltiazem HCl 360 mg capsule,24 1 cap PO DAILY 11/16/20 07/30/21 hr,extended release (Tiadylt ER) roflumilast 500 mcg tablet 1 tab PO DAILY 11/16/20 07/30/21 (Daliresp) rosuvastatin 5 mg tablet 1 tab PO BEDTIME 11/16/20 07/30/21 insulin lispro 100 unit/mL See Protocol SUBCUT TIDAC 12/14/20 07/30/21 subcutaneous solution (Humalog U-100 Insulin) lidocaine 5 % topical patch 1 patch TOPICAL DAILY 12/14/20 07/30/21 metformin 500 mg tablet,extended 2 tab PO BID 05/18/21 07/30/21 release 24 hr prednisone 10 mg tablet 20 mg PO DAILY 05/18/21 07/30/21 theophylline 400 mg 800 mg PO DAILY 05/18/21 07/30/21 capsule,extended release 24 hr (Arnoldo-24) ergocalciferol (vitamin D2) 1,250 1,250 mcg PO QWEEK 06/06/21 07/30/21 mcg (50,000 unit) capsule methadone 10 mg/mL oral concentrate 49 mg PO DAILY 06/06/21 06/07/21 insulin glargine 100 unit/mL 45 unit SUBCUT BEDTIME 06/07/21 07/30/21 subcutaneous solution (Lantus U-100 Insulin) lisinopril 40 mg tablet 1 tab PO DAILY 07/30/21 07/30/21 prednisone 5 mg tablet 10 mg PO BEDTIME 07/30/21 07/30/21 sodium chloride 7 % for 4 ml INHALATION BID 07/30/21 07/30/21 nebulization Previous Rx's Medication Instructions Recorded immune glob,gamma(IgG) 10 40 g IV Q4W #2 ea 06/16/20 [id number]-[id number] 0 to 50 mcg/mL IV solution ipratropium 0.5 mg-albuterol 3 mg 3 ml INHALATION Q4H PRN #540 ml 10/30/20 (2.5 mg base)/3 mL nebulization soln sennosides 8.6 mg tablet (Natural 8.6 mg PO BEDTIME PRN #30 tab 11/24/20 Senna Laxative) omeprazole 40 mg capsule,delayed 40 mg PO DAILY 30 Days #30 cap 05/14/21 release tiotropium bromide 18 mcg capsule 1 cap INHALATION DAILY #30 ea 06/25/21 with inhalation device (Spiriva with HandiHaler) acetaminophen 500 mg tablet 500 mg PO Q6H PRN #20 tab 06/27/21 (Tylenol Extra Strength) ibuprofen 600 mg tablet 600 mg PO Q8H PRN 10 Days #20 tab 07/17/21 arformoterol 15 mcg/2 mL solution 2 ml INHALATION Q12H 30 Days #120 07/24/21 for nebulization (Brovana) ml budesonide 0.5 mg/2 mL suspension 0.5 mg (2 mL) INHALATION BID #120 07/24/21 for nebulization ml Allergies Allergy/AdvReac Type Severity Reaction Status Date / Time No Known Allergies Allergy Verified 07/24/21 11:20 [No Known Allergies*] Review of Systems Review of Systems: Constitutional : No Fever, No Chills ENT/Mouth : No Hoarseness, No sore throat, No Rhinorrhea Eyes: No Redness, No Discharge, No Vision Changes Cardiovascular : pos Chest Pain, positive SOB, positive Dyspnea on Exertion, No Edema Respiratory : positive Cough, pos Sputum, positive Wheezing, Gastrointestinal : No Nausea, No Vomiting, No Diarrhea, No abdominal Pain Genitourinary : No Dysuria, No Hematuria Musculoskeletal : No joint pain, No Myalgias Skin : No rash Neuro : No Weakness, No Numbness, No Headache Psych : No anxiety, depression Heme/Lymph: No Bruising, No Bleeding Endocrine : No Polyuria, No Polydipsia All other systems reviewed and are negative [facility] Past Medical History Attestation statement: The following information was validated with the patient. Medical History Abdominal pain Asthma-COPD overlap syndrome Chronic respiratory failure Chronic respiratory failure Congestive heart failure COPD (chronic obstructive pulmonary disease) Diabetes mellitus Essential hypertension Hyperlipidemia, unspecified Hypogammaglobulinemia Limb swelling Opioid dependence Poor dentition Pulmonary nodule Rib fractures Tobacco abuse Type 2 diabetes mellitus with unspecified complications Surgical History H/O tubal ligation Family History Family History Father Diabetes Other Asthma Social History Social History Household Members: Spouse and Family Household Members Other:: 3 Housing: House Do you presently have visiting nurse or other home services: No Unable to assess alcohol history related to: Unknown Alcohol intake: unknown Patient Tobacco Use Status: Current someday Tobacco user Tobacco use type: Cigarette Cigarettes Per Day: 1 Years Smoked: 35 e-Cigarette/Vaping Use: Currently Using Second Hand Smoke Exposure: No Substance Use Type: Opiates Advance Directives: Yes Advance Directives on File: Yes Advance Directives Date on File: 06/12/21 service: No Current occupational status: unemployed and disabled Physical Exam Vital Signs: Vital Signs: Last Vital Signs Temp 99.1 F 07/30/21 09:08 Pulse 100 07/30/21 11:55 Resp 27 H 07/30/21 11:55 BP 128/85 07/30/21 11:55 Pulse Ox 90 L 07/30/21 10:55 BMI result Body Mass Index 39.2 Appearance: Alert. Oriented X3. Moderate acute distress. Eyes: Pupils equal, round and reactive to light. ENT: Pharynx normal. Neck: Normal inspection. Neck supple. CVS: Normal heart rate and rhythm. Pulses normal. Respiratory: Moderate respiratory distress single words retractions and tachypnea. Breath sounds very tight with wheezes throughout Abdomen: Soft and nontender. Skin: Skin warm and dry. Normal skin color. Normal skin turgor. Extremities: trace 1+ pitting lower extremity edema. No calf ttp Neuro: Oriented X 3. No motor deficit. No sensory deficit. Course Course Course Narrative: signed out to Dr. Harry pending CT scan and admission ABG at baseline MDM - SOB/Dyspnea MDM Narrative Medical decision making narrative: 51 yo female with COPD, asthma, chronic resp failure home bipap, pneumonia, rib fractures, opiate dependence, obesity comes in with c/o L sided pleuritic chest pain for 2 weeks hx of rib fractures has been taking doxy since the 10th and 20mg prednisone daily. The last 3 days her symptoms have been worse and she was in resp distress this AM - at this time labs including ddimer to rule out PE, cultures, IV steroids, IV antibitoics, Bipap, hour long 10mg neb ordered. Likely admit Lab Data Result diagrams: 07/30/21 09:20 07/30/21 09:20 Labs: Lab Results 07/30/21 07/30/21 07/30/21 Range/Units 09:20 09:20 09:20 WBC 10.7 (4.8-10.8) X10*3/uL RBC 4.07 L (4.20-5.50) X10*6/uL Hgb 12.1 (12.0-16.0) g/dl Hct 40.1 (37.0-47.0) % MCV 98.5 H (80.0-98.0) fL MCH 29.7 (27.0-33.0) pg MCHC 30.2 L (31.0-35.0) g/dl RDW 14.4 (11.0-16.0) % Plt Count 239 (160-400) X10*3/uL MPV 8.9 L (9.4-12.3) fL Immature Gran % (Auto) 0.6 H (0.0-0.4) % Neut % (Auto) 81.8 H (45-73) % Lymph % (Auto) 10.7 L (20-40) % [place] % (Auto) 6.0 (2-11) % Eos % (Auto) 0.6 (0-4) % Baso % (Auto) 0.3 (0-2) % Lymph # (Auto) 1.1 L (1.2-4.9) X10*3/uL [place] # (Auto) 0.6 (0.1-1.2) X10*3/uL Eos # (Auto) 0.1 (0.0-0.4) X10*3/uL Baso # (Auto) 0.0 (0.0-0.2) X10*3/uL Abs Immat Gran (auto) 0.06 H (0.00-0.03) X10*3/uL Absolute Neuts (auto) 8.8 H (2.0-8.3) x10*3/uL Absolute Nucleated RBC 0.000 (0.0-0.012) X10*3/uL Nucleated RBC % (auto) 0.0 (0.0-0.2) /100WBC PT (9.9-13.0) SEC INR (0.9-1.1) D-Dimer High Sensitivty NG/ML O2 Saturation % ABG pH at Pt Temp (7.35-7.45) ABG pCO2 at Pt Temp (32-45) mmHg ABG pO2 at Pt Temp (83-108) mmHg ABG HCO3 (22-26) mmol/L ABG Base Excess (Actual) mmol/L VBG pH (7.32-7.43) VBG pCO2 mmHg VBG pO2 mmHg VBG HCO3 (22-26) mmol/L VBG O2 Saturation % VBG Base Excess mmol/L Sodium 142 (135-145) mmol/L Potassium 4.1 (3.3-5.1) mmol/L Chloride 93 L (96-108) mmol/L Carbon Dioxide 43 H* (22-29) mmol/L Anion Gap 10 L (12-20) BUN 21 H D (9-16) mg/dL Creatinine 0.60 (0.5-1.4) mg/dL Estim Creat Clear Calc 116.3 Estimated GFR > 60 Random Glucose 98 (60-115) mg/dL Lactic Acid (0.5-2.0) mmol/L Calcium 9.4 (8.4-10.2) mg/dL Magnesium 1.8 (1.6-2.6) mg/dL Total Bilirubin 0.3 (0.0-1.0) mg/dL Direct Bilirubin 0.2 (0.0-0.5) mg/dL AST 23 (5-31) U/L ALT 27 (0-31) U/L Alkaline Phosphatase 73 (39-117) U/L Troponin I High Sens (<3.5-17.0) ng/L C-Reactive Protein 1.52 H (< or = 0.50) mg/dL B-Natriuretic Peptide < 10 (<100) pg/mL Total Protein 6.5 (6.5-8.0) g/dL Albumin 3.7 (3.5-5.0) g/dL Lipase 8 (8-78) U/L COVID-19 (PAPO) (Negative) COVID-19 Clin Com 07/30/21 07/30/21 07/30/21 Range/Units 09:20 09:20 09:20 WBC (4.8-10.8) X10*3/uL RBC (4.20-5.50) X10*6/uL Hgb (12.0-16.0) g/dl Hct (37.0-47.0) % MCV (80.0-98.0) fL MCH (27.0-33.0) pg MCHC (31.0-35.0) g/dl RDW (11.0-16.0) % Plt Count (160-400) X10*3/uL MPV (9.4-12.3) fL Immature Gran % (Auto) (0.0-0.4) % Neut % (Auto) (45-73) % Lymph % (Auto) (20-40) % [place] % (Auto) (2-11) % Eos % (Auto) (0-4) % Baso % (Auto) (0-2) % Lymph # (Auto) (1.2-4.9) X10*3/uL [place] # (Auto) (0.1-1.2) X10*3/uL Eos # (Auto) (0.0-0.4) X10*3/uL Baso # (Auto) (0.0-0.2) X10*3/uL Abs Immat Gran (auto) (0.00-0.03) X10*3/uL Absolute Neuts (auto) (2.0-8.3) x10*3/uL Absolute Nucleated RBC (0.0-0.012) X10*3/uL Nucleated RBC % (auto) (0.0-0.2) /100WBC PT 10.2 (9.9-13.0) SEC INR 0.9 (0.9-1.1) D-Dimer High Sensitivty 206 NG/ML O2 Saturation % ABG pH at Pt Temp (7.35-7.45) ABG pCO2 at Pt Temp (32-45) mmHg ABG pO2 at Pt Temp (83-108) mmHg ABG HCO3 (22-26) mmol/L ABG Base Excess (Actual) mmol/L VBG pH (7.32-7.43) VBG pCO2 mmHg VBG pO2 mmHg VBG HCO3 (22-26) mmol/L VBG O2 Saturation % VBG Base Excess mmol/L Sodium (135-145) mmol/L Potassium (3.3-5.1) mmol/L Chloride (96-108) mmol/L Carbon Dioxide (22-29) mmol/L Anion Gap (12-20) BUN (9-16) mg/dL Creatinine (0.5-1.4) mg/dL Estim Creat Clear Calc Estimated GFR Random Glucose (60-115) mg/dL Lactic Acid 1.5 (0.5-2.0) mmol/L Calcium (8.4-10.2) mg/dL Magnesium (1.6-2.6) mg/dL Total Bilirubin (0.0-1.0) mg/dL Direct Bilirubin (0.0-0.5) mg/dL AST (5-31) U/L ALT (0-31) U/L Alkaline Phosphatase (39-117) U/L Troponin I High Sens 12.2 D (<3.5-17.0) ng/L C-Reactive Protein (< or = 0.50) mg/dL B-Natriuretic Peptide (<100) pg/mL Total Protein (6.5-8.0) g/dL Albumin (3.5-5.0) g/dL Lipase (8-78) U/L COVID-19 (PAPO) (Negative) COVID-19 Clin Com 07/30/21 07/30/21 07/30/21 Range/Units 09:20 09:22 10:13 WBC (4.8-10.8) X10*3/uL RBC (4.20-5.50) X10*6/uL Hgb (12.0-16.0) g/dl Hct (37.0-47.0) % MCV (80.0-98.0) fL MCH (27.0-33.0) pg MCHC (31.0-35.0) g/dl RDW (11.0-16.0) % Plt Count (160-400) X10*3/uL MPV (9.4-12.3) fL Immature Gran % (Auto) (0.0-0.4) % Neut % (Auto) (45-73) % Lymph % (Auto) (20-40) % [place] % (Auto) (2-11) % Eos % (Auto) (0-4) % Baso % (Auto) (0-2) % Lymph # (Auto) (1.2-4.9) X10*3/uL [place] # (Auto) (0.1-1.2) X10*3/uL Eos # (Auto) (0.0-0.4) X10*3/uL Baso # (Auto) (0.0-0.2) X10*3/uL Abs Immat Gran (auto) (0.00-0.03) X10*3/uL Absolute Neuts (auto) (2.0-8.3) x10*3/uL Absolute Nucleated RBC (0.0-0.012) X10*3/uL Nucleated RBC % (auto) (0.0-0.2) /100WBC PT (9.9-13.0) SEC INR (0.9-1.1) D-Dimer High Sensitivty NG/ML O2 Saturation 78.0 % ABG pH at Pt Temp 7.33 L (7.35-7.45) ABG pCO2 at Pt Temp 91 H* (32-45) mmHg ABG pO2 at Pt Temp 51 L (83-108) mmHg ABG HCO3 49 H (22-26) mmol/L ABG Base Excess (Actual) 18.0 mmol/L VBG pH 7.32 (7.32-7.43) VBG pCO2 124 mmHg VBG pO2 44 mmHg VBG HCO3 64 H (22-26) mmol/L VBG O2 Saturation 67.0 % VBG Base Excess 30.0 mmol/L Sodium (135-145) mmol/L Potassium (3.3-5.1) mmol/L Chloride (96-108) mmol/L Carbon Dioxide (22-29) mmol/L Anion Gap (12-20) BUN (9-16) mg/dL Creatinine (0.5-1.4) mg/dL Estim Creat Clear Calc Estimated GFR Random Glucose (60-115) mg/dL Lactic Acid (0.5-2.0) mmol/L Calcium (8.4-10.2) mg/dL Magnesium (1.6-2.6) mg/dL Total Bilirubin (0.0-1.0) mg/dL Direct Bilirubin (0.0-0.5) mg/dL AST (5-31) U/L ALT (0-31) U/L Alkaline Phosphatase (39-117) U/L Troponin I High Sens (<3.5-17.0) ng/L C-Reactive Protein (< or = 0.50) mg/dL B-Natriuretic Peptide (<100) pg/mL Total Protein (6.5-8.0) g/dL Albumin (3.5-5.0) g/dL Lipase (8-78) U/L COVID-19 (PAPO) Negative (Negative) COVID-19 Clin Com See Note Discharge Plan Discharge Clinical Impression: COPD exacerbation Patient Disposition: Admitted As Inpatient
[2021-07-30] MEDS: methylPREDNISolone Sod Succ 125 MG/2 ML VIAL IVPUSH (09:24)
[2021-07-30 09:27] LABS: MANUAL DIFF FLAG NO
[2021-07-30 09:29] LABS: Basophils Percent Auto 0.3 % (0-2); Eosinophils Absolute Auto 0.1 X10*3/uL (0.0-0.4); Eosinophils Percent Auto 0.6 % (0-4); Hematocrit 40.1 % (37.0-47.0); Hemoglobin 12.1 g/dl (12.0-16.0); Imm Gran Abs Auto 0.06 X10*3/uL (0.00-0.03); Imm Gran Pct Auto 0.6 % (0.0-0.4); Lymphocytes Absolute Auto 1.1 X10*3/uL (1.2-4.9); Lymphocytes Percent Auto 10.7 % (20-40); Mean Corpuscular HGB Conc 30.2 g/dl (31.0-35.0); Mean Corpuscular Hemoglobin 29.7 pg (27.0-33.0); Mean Corpuscular Volume 98.5 fL (80.0-98.0); Mean Platelet Volume 8.9 fL (9.4-12.3); Monocytes Absolute Auto 0.6 X10*3/uL (0.1-1.2); Neutrophils Absolute Auto 8.8 x10*3/uL (2.0-8.3); Neutrophils Percent Auto 81.8 % (45-73); Platelet Count 239 X10*3/uL (160-400); Red Blood Count 4.07 X10*6/uL (4.20-5.50); Red Cell Distribution Width 14.4 % (11.0-16.0); White Blood Count 10.7 X10*3/uL (4.8-10.8)
[2021-07-30] MEDS: Albuterol Sulfate (0.083%) 2.5 MG/3 ML VIAL.NEB 10 MG INHALE (09:29)
[2021-07-30 09:31] LABS: VBG HCO3 64 mmol/L (22-26); VBG pCO2 124 mmHg; VBG pH 7.32 (7.32-7.43); VBG pO2 44 mmHg
[2021-07-30 09:34] LABS: Venous Blood Gas Refer to POC result
[2021-07-30 09:34] LABS: INTERNATIONAL NORM RATIO 0.9 (0.9-1.1); Prothrombin Time 10.2 SEC (9.9-13.0)
[2021-07-30 09:36] LABS: D Dimer High Sensitivity 206 NG/ML
[2021-07-30 09:38] LABS: Lactic Acid 1.5 mmol/L (0.5-2.0)
[2021-07-30 09:50] LABS: B Type Natriuretic Peptide < 10 pg/mL (<100); Troponin-I High Sensitivity 12.2 ng/L (<3.5-17.0)
[2021-07-30 09:53] LABS: Alanine Aminotransferase 27 U/L (0-31); Albumin Level 3.7 g/dL (3.5-5.0); Alkaline Phosphatase 73 U/L (39-117); Anion Gap 10 (12-20); Aspartate Amino Transferase 23 U/L (5-31); Bilirubin Direct 0.2 mg/dL (0.0-0.5); Bilirubin Total 0.3 mg/dL (0.0-1.0); Blood Urea Nitrogen 21 mg/dL (9-16); C Reactive Protein 1.52 mg/dL (< or = 0.50); Calcium 9.4 mg/dL (8.4-10.2); Carbon Dioxide 43 mmol/L (22-29); Chloride 93 mmol/L (96-108); Creatinine Clr Calc Pharmacy 116.3; Estimated Glomerular Filt Rate > 60; Glucose Random 98 mg/dL (60-115); Lipase 8 U/L (8-78); Magnesium 1.8 mg/dL (1.6-2.6); Potassium 4.1 mmol/L (3.3-5.1); Sodium 142 mmol/L (135-145); Total Protein 6.5 g/dL (6.5-8.0)
[2021-07-30 09:54] LABS: COVID-19 Test Negative (Negative); IDNOW Serial# 16C4AD1C
[2021-07-30] MEDS: cefTRIAXone sodium 1 GM in 0.9 % Sodium Chloride 50 ML IV (09:58)
[2021-07-30 10:21] LABS: ABG HCO3 49 mmol/L (22-26); ABG pCO2 91 mmHg (32-45); ABG pH 7.33 (7.35-7.45); ABG pO2 51 mmHg (83-108)
[2021-07-30] MEDS: Doxycycline Hyclate 100 MG in 0.9 % Sodium Chloride 250 ML 166.67 MG IV (10:30)
[2021-07-30] MEDS: Ketorolac Tromethamine 30 MG/ML VIAL IVPUSH (10:54)
[2021-07-30 11:20] LABS: ABG Refer to POC result
--- NOTE | 2021-07-30 12:06 | PHA.MEDREC ---
Pharmacy Consult ? Medication Reconciliation Pharmacy has completed the medication reconciliation. Patient unsure of medications. Complete med rec based on claim history. Per Allan Salmeron note I confirm predniosne dose, and patient should be on Hypertonic saline 7 % for neb BID as well as IVIG monthly. Jyoti Camacho, PharmD
[2021-07-30] MEDS: Albuterol Sulfate (0.083%) 2.5 MG/3 ML VIAL.NEB 5 MG INHALE (13:49)
--- NOTE | 2021-07-30 14:53 | PM.CCHP ---
History of Present Illness Date of Service: 07/30/21 Attending physician on admission: Jens Pendleton Chief Complaint: Dyspnea 51-year-old morbidly obese female insulin-dependent diabetic and hypertensive obvious metabolic syndrome with 1 of many many many admissions with very little time in between at home of of status asthmaticus respiratory exacerbation yet she claims she takes her medicines at home no fever chills no change in cough quality no chew associated chest discomfort she presents with an acute on chronic hypercarbic and hypoxic respiratory failure her normal living pCO2 probably between 70 and 80 she began at 01:24 and on BiPAP in the emergency room came down to 90 currently still using diaphragmatic effort for it for expiration no paradoxic motion of her ribcage but she is using accessory muscles for inspiratory effort as well although much better still a degree of respiratory distress On a methadone program in addition to these other issues and thus far given her degree of improvement it besides the BiPAP mechanism she had 2 large dose albuterol inhaler treatments Review of Systems Review of Systems: Yes all other systems are reviewed and are negative PMFSH Past Medical History Medical History (Updated 07/30/21 @ 14:59 by Jens Pendleton MD) Abdominal pain Asthma-COPD overlap syndrome Chronic respiratory failure Chronic respiratory failure Congestive heart failure COPD (chronic obstructive pulmonary disease) Diabetes mellitus Essential hypertension Hyperlipidemia, unspecified Hypertensive cardiovascular disease Hypogammaglobulinemia Limb swelling Opioid dependence Poor dentition Pulmonary nodule Rib fractures Status asthmaticus with COPD (chronic obstructive pulmonary disease) Tobacco abuse Type 2 diabetes mellitus Type 2 diabetes mellitus with unspecified complications Cognitive capacity: She is awake and alert not terribly cooperative which is her normal not wanting to really talk at this point Family History Family History Father Diabetes Other Asthma Surgical History Surgical History H/O tubal ligation Social History Social History Household Members: Spouse and Family Household Members Other:: 3 Housing: House Do you presently have visiting nurse or other home services: No Unable to assess alcohol history related to: Unknown Alcohol intake: unknown Patient Tobacco Use Status: Current someday Tobacco user Tobacco use type: Cigarette Cigarettes Per Day: 1 Years Smoked: 35 e-Cigarette/Vaping Use: Currently Using Second Hand Smoke Exposure: No Substance Use Type: Opiates Advance Directives: Yes Advance Directives on File: Yes Advance Directives Date on File: 06/12/21 service: No Current occupational status: unemployed and disabled Meds Allergies Allergy/AdvReac Type Severity Reaction Status Date / Time No Known Allergies Allergy Verified 07/24/21 11:20 [No Known Allergies*] Active Medications: Current Medications Albuterol/Ipratropium (Albuterol/Iprat 2.5/0.5mg 3 Ml Ampul.Neb) 3 ml INHALE RQ4H [facility] Heparin Sodium (Porcine) (Heparin Sodium,Porcine 5,000 Unit/Ml Vial) 5,000 unit SUBCUT Q8H [facility] Pantoprazole Sodium 40 mg/ (Sodium Chloride) 110 mls @ 400 mls/hr IV DAILY@0630 [facility] Levofloxacin (Levaquin) 750 mg in 150 mls @ 100 mls/hr IV Q24H [facility] Levalbuterol HCl (Levalbuterol Hcl 1.25 Mg/0.5 Ml Vial.Neb) 1.25 mg INHALE 8XD PRN PRN Reason: Dyspnea Methylprednisolone Sodium Succinate (Methylprednisolone Sod Succ 125 Mg/2 Ml Vial) 60 mg IVPUSH BID [facility] Pharmacy Consult (Consult Rx Perform Med Rec) 1 each MISCELLANE ONCE PRN PRN Reason: Consult order Home Medications Medication Instructions Recorded Confirmed Last Taken Type albuterol sulfate 90 mcg/actuation 2 puff INHALATION Q4H PRN 12/30/19 07/30/21 02/21/21 History aerosol inhaler (ProAir HFA) loratadine 10 mg tablet (Claritin) 10 mg PO DAILY 12/30/19 07/30/21 02/21/21 History montelukast 10 mg tablet 10 mg PO BEDTIME 12/30/19 07/30/21 02/20/21 History gabapentin 100 mg capsule 1 cap PO BID 10/14/20 07/30/21 02/21/21 History diltiazem HCl 360 mg capsule,24 1 cap PO DAILY 11/16/20 07/30/21 02/21/21 History hr,extended release (Tiadylt ER) roflumilast 500 mcg tablet 1 tab PO DAILY 11/16/20 07/30/21 02/21/21 History (Daliresp) rosuvastatin 5 mg tablet 1 tab PO BEDTIME 11/16/20 07/30/21 02/20/21 History insulin lispro 100 unit/mL See Protocol SUBCUT TIDAC 12/14/20 07/30/21 02/21/21 History subcutaneous solution (Humalog U-100 Insulin) lidocaine 5 % topical patch 1 patch TOPICAL DAILY 12/14/20 07/30/21 02/21/21 History metformin 500 mg tablet,extended 2 tab PO BID 05/18/21 07/30/21 Unknown History release 24 hr prednisone 10 mg tablet 20 mg PO DAILY 05/18/21 07/30/21 Unknown History theophylline 400 mg 800 mg PO DAILY 05/18/21 07/30/21 Unknown History capsule,extended release 24 hr (Arnoldo-24) ergocalciferol (vitamin D2) 1,250 1,250 mcg PO QWEEK 06/06/21 07/30/21 Unknown History mcg (50,000 unit) capsule methadone 10 mg/mL oral concentrate 49 mg PO DAILY 06/06/21 06/07/21 Unknown History insulin glargine 100 unit/mL 45 unit SUBCUT BEDTIME 06/07/21 07/30/21 Unknown History subcutaneous solution (Lantus U-100 Insulin) lisinopril 40 mg tablet 1 tab PO DAILY 07/30/21 07/30/21 Unknown History prednisone 5 mg tablet 10 mg PO BEDTIME 07/30/21 07/30/21 Unknown History sodium chloride 7 % for 4 ml INHALATION BID 07/30/21 07/30/21 Unknown History nebulization Physical Exam Vital Signs: Vital Signs: Last Vital Signs Temp 99.1 F 07/30/21 09:08 Pulse 110 H 07/30/21 14:19 Resp 24 H 07/30/21 14:19 BP 148/75 H 07/30/21 14:19 Pulse Ox 90 L 07/30/21 14:19 BMI result Body Mass Index 39.2 Again mild respiratory distress using accessory muscles and diaphragmatic effort on BiPAP Alert and oriented x3 and nonfocal neurologically Recent peripheral venous ultrasound shows no evidence of deep vein thrombosis and transthoracic echo gross interpretation was normal LV function Bilateral expiratory wheezing otherwise poor bilateral breath sounds Abdomen is obese with no organomegaly and nontender Results Labs CBC and Chem 7: 07/30/21 09:20 07/30/21 09:20 Labs: Laboratory Results - last 24 hr 07/30/21 07/30/21 07/30/21 09:20 09:20 09:20 MCV 98.5 H MCH 29.7 MCHC 30.2 L RDW 14.4 Plt Count 239 MPV 8.9 L Immature Gran % (Auto) 0.6 H Neut % (Auto) 81.8 H Lymph % (Auto) 10.7 L [place] % (Auto) 6.0 Eos % (Auto) 0.6 Baso % (Auto) 0.3 Lymph # (Auto) 1.1 L [place] # (Auto) 0.6 Eos # (Auto) 0.1 Baso # (Auto) 0.0 Abs Immat Gran (auto) 0.06 H Absolute Neuts (auto) 8.8 H Absolute Nucleated RBC 0.000 Nucleated RBC % (auto) 0.0 PT INR D-Dimer High Sensitivty O2 Saturation ABG pH at Pt Temp ABG pCO2 at Pt Temp ABG pO2 at Pt Temp ABG HCO3 ABG Base Excess (Actual) VBG pH VBG pCO2 VBG pO2 VBG HCO3 VBG O2 Saturation VBG Base Excess Anion Gap 10 L Estim Creat Clear Calc 116.3 Estimated GFR > 60 Random Glucose 98 Lactic Acid Calcium 9.4 Magnesium 1.8 Total Bilirubin 0.3 Direct Bilirubin 0.2 AST 23 ALT 27 Alkaline Phosphatase 73 Troponin I High Sens C-Reactive Protein 1.52 H B-Natriuretic Peptide < 10 Total Protein 6.5 Albumin 3.7 Lipase 8 COVID-19 (PAPO) COVID-19 [facility] 07/30/21 07/30/21 07/30/21 09:20 09:20 09:20 MCV MCH MCHC RDW Plt Count MPV Immature Gran % (Auto) Neut % (Auto) Lymph % (Auto) [place] % (Auto) Eos % (Auto) Baso % (Auto) Lymph # (Auto) [place] # (Auto) Eos # (Auto) Baso # (Auto) Abs Immat Gran (auto) Absolute Neuts (auto) Absolute Nucleated RBC Nucleated RBC % (auto) PT 10.2 INR 0.9 D-Dimer High Sensitivty 206 O2 Saturation ABG pH at Pt Temp ABG pCO2 at Pt Temp ABG pO2 at Pt Temp ABG HCO3 ABG Base Excess (Actual) VBG pH VBG pCO2 VBG pO2 VBG HCO3 VBG O2 Saturation VBG Base Excess Anion Gap Estim Creat Clear Calc Estimated GFR Random Glucose Lactic Acid 1.5 Calcium Magnesium Total Bilirubin Direct Bilirubin AST ALT Alkaline Phosphatase Troponin I High Sens 12.2 D C-Reactive Protein B-Natriuretic Peptide Total Protein Albumin Lipase COVID-19 (PAPO) COVID-19 Clin Com 07/30/21 07/30/21 07/30/21 09:20 09:22 10:13 MCV MCH MCHC RDW Plt Count MPV Immature Gran % (Auto) Neut % (Auto) Lymph % (Auto) [place] % (Auto) Eos % (Auto) Baso % (Auto) Lymph # (Auto) [place] # (Auto) Eos # (Auto) Baso # (Auto) Abs Immat Gran (auto) Absolute Neuts (auto) Absolute Nucleated RBC Nucleated RBC % (auto) PT INR D-Dimer High Sensitivty O2 Saturation 78.0 ABG pH at Pt Temp 7.33 L ABG pCO2 at Pt Temp 91 H* ABG pO2 at Pt Temp 51 L ABG HCO3 49 H ABG Base Excess (Actual) 18.0 VBG pH 7.32 VBG pCO2 124 VBG pO2 44 VBG HCO3 64 H VBG O2 Saturation 67.0 VBG Base Excess 30.0 Anion Gap Estim Creat Clear Calc Estimated GFR Random Glucose Lactic Acid Calcium Magnesium Total Bilirubin Direct Bilirubin AST ALT Alkaline Phosphatase Troponin I High Sens C-Reactive Protein B-Natriuretic Peptide Total Protein Albumin Lipase COVID-19 (PAPO) Negative COVID-19 Clin Com See Note Imaging Radiologist's Impressions: Impressions Chest X-Ray 07/30/21 09:45 IMPRESSION: Bilateral patchy airspace opacities and bronchial thickening could be compatible with an atypical pneumonitis. Assessment and Plan (1) COPD exacerbation: Status: Acute (2) Pneumonia: Qualifiers: Laterality: bilateral Lung location: unspecified part of lung Pneumonia type: due to unspecified organism Qualified Code(s): J18.9 - Pneumonia, unspecified organism Status: Acute (3) Respiratory failure: Qualifiers: Chronicity: acute Respiratory failure complication: hypoxia and hypercapnia Qualified Code(s): J96.01 - Acute respiratory failure with hypoxia; J96.02 - Acute respiratory failure with hypercapnia Status: Acute (4) Acute on chronic respiratory failure with hypoxia and hypercapnia: Status: Acute (5) Abnormal chest x-ray: Status: Acute (6) Rib fractures: Status: Acute (7) SOB (shortness of breath): Status: Acute (8) Tachycardia: Status: Acute (9) Morbid obesity: Status: Acute (10) Type 2 diabetes mellitus: Status: Acute (11) Hypertensive cardiovascular disease: Status: Acute (12) Status asthmaticus with COPD (chronic obstructive pulmonary disease): Status: Acute Plan Plan therefore is to maintain her on BiPAP probably continuously overnight and continue aggressive IV steroids as well as nebulized bronchodilator therapy all short-acting and just cover empirically for now with Levaquin to cover both atypical organisms as as well as probably most enteric organisms as well and waiting for a dry CT scan see whether not this is asthmatic bronchitis verses pneumonia
--- NOTE | 2021-07-30 15:32 | PC.NURSE ---
report to icu.
[2021-07-30] MEDS: Heparin Sodium,Porcine 5,000 UNIT/ML VIAL 5000 UNIT SUBCUT ×2 (17:11→22:12)
[2021-07-30] MEDS: levoFLOXacin/D5W 750 MG/150 ML PIGGYBACK 100 MG IV (17:12)
[2021-07-30] MEDS: Albuterol/Iprat 2.5/0.5MG 3 ML AMPUL.NEB INHALE (21:03)
[2021-07-30] MEDS: methylPREDNISolone Sod Succ 125 MG/2 ML VIAL 60 MG IVPUSH (22:12)
[2021-07-30 22:55] LABS: Amphetamine Screen Urine Not Detected (Not Detect); Barbiturates, Urine Not Detected (Not Detect); Benzodiazepines Screen Urine Not Detected (Not Detect); Cannabinoid Screen Urine Not Detected (Not Detect); Cocaine Screen Urine Not Detected (Not Detect); Fentanyl, urine Not Detected (Not Detect); Opiate Screen Urine Not Detected (Not Detect); Phencyclidine Screen Urine Not Detected (Not Detect)
[2021-07-31] VITALS (31 sets, daily range): BP systolic 142–199; BP diastolic 78–116; PULSE 89–126; RESP 15–27; TEMP 35.9–37.1; O2SAT 89–96; BMI 37.5
[2021-07-31] MEDS: Albuterol/Iprat 2.5/0.5MG 3 ML AMPUL.NEB INHALE ×6 (00:41→19:28)
[2021-07-31 05:25] LABS: VBG Base Excess 19.4 mmol/L; VBG HCO3 48 mmol/L (22-26); VBG pCO2 78 mmHg; VBG pO2 45 mmHg
[2021-07-31 05:27] LABS: Basophils Percent Auto 0.1 % (0-2); Hematocrit 40.4 % (37.0-47.0); Hemoglobin 12.5 g/dl (12.0-16.0); Imm Gran Abs Auto 0.04 X10*3/uL (0.00-0.03); Imm Gran Pct Auto 0.4 % (0.0-0.4); Lymphocytes Absolute Auto 0.3 X10*3/uL (1.2-4.9); Lymphocytes Percent Auto 2.8 % (20-40); MANUAL DIFF FLAG SCAN; Mean Corpuscular HGB Conc 30.9 g/dl (31.0-35.0); Mean Corpuscular Volume 97.1 fL (80.0-98.0); Monocytes Absolute Auto 0.3 X10*3/uL (0.1-1.2); Monocytes Percent Auto 3.4 % (2-11); Neutrophils Absolute Auto 8.5 x10*3/uL (2.0-8.3); Neutrophils Percent Auto 93.3 % (45-73); Platelet Count 243 X10*3/uL (160-400); Red Blood Count 4.16 X10*6/uL (4.20-5.50); Red Cell Distribution Width 13.8 % (11.0-16.0); SCAN SMEAR FLAG 1; White Blood Count 9.1 X10*3/uL (4.8-10.8)
[2021-07-31 05:44] LABS: Anion Gap 12 (12-20); Blood Urea Nitrogen 14 mg/dL (9-16); Calcium 9.7 mg/dL (8.4-10.2); Carbon Dioxide 41 mmol/L (22-29); Chloride 92 mmol/L (96-108); Creatinine Clr Calc Pharmacy 122.1; Estimated Glomerular Filt Rate > 60; Glucose Random 120 mg/dL (60-115); Phosphorus 3.7 mg/dL (2.7-4.5); Potassium 4.5 mmol/L (3.3-5.1); Sodium 140 mmol/L (135-145)
[2021-07-31] MEDS: Pantoprazole Sodium 40 MG/10 ML VIAL IVPUSH (05:52)
[2021-07-31] MEDS: Heparin Sodium,Porcine 5,000 UNIT/ML VIAL 5000 UNIT SUBCUT ×3 (05:52→22:59)
[2021-07-31 05:59] LABS: SLIDE REVIEW VERIFIED
[2021-07-31] MEDS: methylPREDNISolone Sod Succ 125 MG/2 ML VIAL 60 MG IVPUSH ×2 (07:40→20:15)
[2021-07-31 08:06] LABS: Venous Blood Gas Refer to POC result
--- NOTE | 2021-07-31 10:01 | MHC.CM.PN ---
Addendum entered by Sridevi Beard 07/31/21 10:14: HCP on file: Pt receives methadone through [facility] in [place]: [facility] pharmacy to verify dosing. Original Note: Attempted to meet with pt to discuss d/c planning: Interview somewhat limited d/t pt being on CPAP and being anxious. Pt states she has daily [employer] services 7 days per week: [employer] provides transportation, housekeeping and ADL needs. Pt thinks [employer] supplies her O2 but isn't certain. Pt states [employer] will transport her home. Other assessment information not obtained d/t pt's medical condition. CM to reapproach when pt is not experiencing respiratory impairment
[2021-07-31 10:33] LABS: Rheumatoid Factor < 15.0 IU/mL (<15.0)
[2021-07-31 10:41] LABS: VBG Base Excess 21.9 mmol/L; VBG HCO3 51 mmol/L (22-26); VBG pCO2 78 mmHg; VBG pH 7.42 (7.32-7.43); VBG pO2 57 mmHg
[2021-07-31 10:41] LABS: Venous Blood Gas Refer to POC result
[2021-07-31] MEDS: methADONE HCl 20 MG/2 ML ORAL.CONC 50 MG PO (11:18)
[2021-07-31] MEDS: Insulin Lispro 100 UNIT/ML 3 ML VIAL SUBCUT ×2 (11:22→20:17)
[2021-07-31 11:25] LABS: Glucose, Whole Blood 151 mg/dL (60-115)
[2021-07-31 11:27] LABS: Erythrocyte Sedimentation Rate 38 MM/HR (0-20)
[2021-07-31 11:53] LABS: ABG Base Excess 24.1 mmol/L; ABG HCO3 54 mmol/L (22-26); ABG pCO2 81 mmHg (32-45); ABG pH 7.43 (7.35-7.45); ABG pO2 64 mmHg (83-108)
--- NOTE | 2021-07-31 12:04 | P.PNCC_ITS ---
Subjective Subjective Date of Service: 07/31/21 Interval History: 51-year-old obese type 2 diabetic and hypertensive longstanding COPD presents once again a million x4 acute on chronic hypercarbic and hypoxic respiratory failure but this time she has got diffuse bilateral nodular ground-glass of opacities no true consolidation she has got some peribronchial thickening some tree in bud configuration so there likely is veno any known element here of a chronic asthmatic the no bronchitis kind of the situation she was on steroids she is largely steroid dependent but I have no evidence of recent broad-spectrum antibiotic use and she denies no fever chills etc. no significant white count or left shift and without there being a sputum I empirically placed her on Levaquin and yesterday she needed to remain overnight on continuous BiPAP which took a lot of her work of breathing away but she was initially the size lethargic from the acute hypercarbia she was using it accessory muscles a lot of diaphragmatic effort etc. of almost all of which is abated today and her calculated chronic state gives her a pCO2 in the mid to high 70s currently the no she is just on a Gilliland nasal catheter and doing well without respiratory effort and a pCO2 of 80 and she sitting up in she is eating so it is a dramatic improvement and she still remains of course on her short-acting bronchodilators and Mar steroids and what I would do is to restore her long-acting bronchodilators such as formoterol etc. and long-acting steroid as she had been before she is on a diabetic diet and I started her on insulin coverage at this point so hopefully over the course of the next [place] 24-48 hours she should return to her baseline state clearly if she would worsen I out think we need a little bit more information about other potential pathogens in this diabetic who is largely steroid dependent Critical Care Time (minutes): 45 Physical Exam Vital Signs: Vital Signs: Last Vital Signs Temp 98.8 F 07/31/21 08:00 Pulse 101 H 07/31/21 11:05 Resp 18 07/31/21 11:08 BP 182/95 H 07/31/21 11:00 Pulse Ox 93 07/31/21 11:00 BMI result Body Mass Index 37.5 Awake alert oriented nonfocal neurologically All signs of respiratory effort are gone Diminished bilateral breath sounds Cardiac exam by bedside echo very technically limited but subjectively excellent LV function Abdomen nontender good bowel sounds no organomegaly Objective Data Labs CBC & Chem 7: 05/17/22 05:19 07/31/21 05:19 Labs: Laboratory Results - last 24 hr 07/30/21 07/31/21 07/31/21 22:30 05:17 05:19 WBC 9.1 RBC 4.16 L Hgb 12.5 Hct 40.4 MCV 97.1 MCH 30.0 MCHC 30.9 L RDW 13.8 Plt Count 243 MPV 9.0 L Immature Gran % (Auto) 0.4 Neut % (Auto) 93.3 H Lymph % (Auto) 2.8 L [place] % (Auto) 3.4 Eos % (Auto) 0.0 Baso % (Auto) 0.1 Lymph # (Auto) 0.3 L [place] # (Auto) 0.3 Eos # (Auto) 0.0 Baso # (Auto) 0.0 Abs Immat Gran (auto) 0.04 H Absolute Neuts (auto) 8.5 H Absolute Nucleated RBC 0.000 Nucleated RBC % (auto) 0.0 Smear Tech's Comments VERIFIED ESR O2 Saturation ABG pH at Pt Temp ABG pCO2 at Pt Temp ABG pO2 at Pt Temp ABG HCO3 ABG Base Excess (Actual) VBG pH 7.40 VBG pCO2 78 VBG pO2 45 VBG HCO3 48 H VBG O2 Saturation 73.0 VBG Base Excess 19.4 Sodium Potassium Chloride Carbon Dioxide Anion Gap BUN Creatinine Estim Creat Clear Calc Estimated GFR POC Glucose Random Glucose Calcium Phosphorus Magnesium Urine Opiates Screen Not Detected Urine Fentanyl Screen Not Detected Ur Barbiturates Screen Not Detected Ur Phencyclidine Scrn Not Detected Ur Amphetamines Screen Not Detected U Benzodiazepines Scrn Not Detected Urine Cocaine Screen Not Detected U Marijuana (THC) Screen Not Detected Rheumatoid Factor 07/31/21 07/31/21 07/31/21 05:19 10:13 10:13 WBC RBC Hgb Hct MCV MCH MCHC RDW Plt Count MPV Immature Gran % (Auto) Neut % (Auto) Lymph % (Auto) [place] % (Auto) Eos % (Auto) Baso % (Auto) Lymph # (Auto) [place] # (Auto) Eos # (Auto) Baso # (Auto) Abs Immat Gran (auto) Absolute Neuts (auto) Absolute Nucleated RBC Nucleated RBC % (auto) Smear Tech's Comments ESR 38 H O2 Saturation ABG pH at Pt Temp ABG pCO2 at Pt Temp ABG pO2 at Pt Temp ABG HCO3 ABG Base Excess (Actual) VBG pH VBG pCO2 VBG pO2 VBG HCO3 VBG O2 Saturation VBG Base Excess Sodium 140 Potassium 4.5 Chloride 92 L Carbon Dioxide 41 H* Anion Gap 12 BUN 14 Creatinine 0.57 Estim Creat Clear Calc 122.1 Estimated GFR > 60 POC Glucose Random Glucose 120 H Calcium 9.7 Phosphorus 3.7 Magnesium 2.0 Urine Opiates Screen Urine Fentanyl Screen Ur Barbiturates Screen Ur Phencyclidine Scrn Ur Amphetamines Screen U Benzodiazepines Scrn Urine Cocaine Screen U Marijuana (THC) Screen Rheumatoid Factor < 15.0 07/31/21 07/31/21 07/31/21 10:34 11:21 11:45 WBC RBC Hgb Hct MCV MCH MCHC RDW Plt Count MPV Immature Gran % (Auto) Neut % (Auto) Lymph % (Auto) [place] % (Auto) Eos % (Auto) Baso % (Auto) Lymph # (Auto) [place] # (Auto) Eos # (Auto) Baso # (Auto) Abs Immat Gran (auto) Absolute Neuts (auto) Absolute Nucleated RBC Nucleated RBC % (auto) Smear Tech's Comments ESR O2 Saturation 89.0 ABG pH at Pt Temp 7.43 ABG pCO2 at Pt Temp 81 H* ABG pO2 at Pt Temp 64 L ABG HCO3 54 H ABG Base Excess (Actual) 24.1 VBG pH 7.42 VBG pCO2 78 VBG pO2 57 VBG HCO3 51 H VBG O2 Saturation 83.0 VBG Base Excess 21.9 Sodium Potassium Chloride Carbon Dioxide Anion Gap BUN Creatinine Estim Creat Clear Calc Estimated GFR POC Glucose 151 H Random Glucose Calcium Phosphorus Magnesium Urine Opiates Screen Urine Fentanyl Screen Ur Barbiturates Screen Ur Phencyclidine Scrn Ur Amphetamines Screen U Benzodiazepines Scrn Urine Cocaine Screen U Marijuana (THC) Screen Rheumatoid Factor Microbiology Microbiology Results: Microbiology 07/30/21 09:37 Blood - Venous Blood Culture - Preliminary No growth after 24 hours. 07/30/21 09:37 Blood - Venous Blood Culture - Preliminary No growth after 24 hours. Progress Note: A&P Assessment and plan (1) Status asthmaticus with COPD (chronic obstructive pulmonary disease): Status: Acute (2) Hypertensive cardiovascular disease: Status: Acute (3) Type 2 diabetes mellitus: Status: Acute (4) Morbid obesity: Status: Acute (5) Acute on chronic respiratory failure with hypoxia and hypercapnia: Status: Acute (6) COPD exacerbation: Status: Acute (7) Pneumonia: Status: Acute (8) Respiratory failure: Status: Acute (9) Rib fractures: Status: Acute (10) Pulmonary nodule: Status: Acute (11) Abnormal chest x-ray: Status: Acute (12) Chest pain: Status: Acute (13) Pneumonia: Status: Acute (14) Respiratory failure: Status: Acute (15) Limb swelling: Status: Acute (16) Abdominal pain: Status: Acute (17) Poor dentition: Status: Acute (18) Precordial chest pain: Status: Acute (19) SOB (shortness of breath): Status: Acute (20) Preoperative cardiovascular examination: Status: Acute (21) Tachycardia: Status: Acute Plan So apparently acute phase with status asthmaticus seems to be resolving I would maintain support as above downgraded to daytime use of of Gilliland catheter for now and I would still continue nocturnal BiPAP Quality Stroke Does the patient have a stroke diagnosis?: No VTE Prior VTE?: No VTE Risk Level:: Medical - moderate - high VTE Device Contraindication: N/A - Device Ordered VTE Drug Contraindication: N/A - Med Ordered
--- NOTE | 2021-07-31 12:50 | PM.EVENT ---
Event Note Date of Service: 07/31/21 Event Note: Patient seen and examined discuss the case with ICU in detail. Shortness of breath is improving, denies any chest pain or abdominal pain or cough or phlegm. has anxiety physicla exam: unchanged from icu. Assessment and plan coordinated in ICU note Gets anxious in between, added Ativan Continue CPAP and nebs, steroids, pulm eval Consider repeating ABG if clinically deteriorates.
[2021-07-31 13:46] LABS: ABG Refer to POC result
[2021-07-31] MEDS: Labetalol HCL 100 MG/20 ML VIAL 10 MG IVPUSH (14:30)
[2021-07-31 15:53] LABS: Glucose, Whole Blood 209 mg/dL (60-115)
[2021-07-31 16:28] LABS: Glucose, Whole Blood 186 mg/dL (60-115)
[2021-07-31] MEDS: levoFLOXacin/D5W 750 MG/150 ML PIGGYBACK 100 MG IV (18:34)
[2021-07-31] MEDS: LORazepam 2 MG/ML VIAL 0.5 MG IVPUSH (18:35)
[2021-07-31] MEDS: Montelukast Sodium 10 MG TABLET PO (20:16)
[2021-07-31] MEDS: predniSONE 5 MG TABLET 10 MG PO (20:16)
[2021-07-31] MEDS: Gabapentin 100 MG CAPSULE PO (20:16)
[2021-07-31] MEDS: Acetaminophen 325 MG TABLET PO (20:16)
[2021-07-31] MEDS: Atorvastatin Calcium 20 MG TABLET PO (20:17)
[2021-07-31] MEDS: Insulin Glargine,Hum.rec.anlog 100 UNIT/ML 10 ML VIAL 45 UNIT SUBCUT (20:17)
[2021-07-31 20:23] LABS: Glucose, Whole Blood 172 mg/dL (60-115)
[2021-07-31] MEDS: Sodium Chloride 3 % Inhalation 4 ML VIAL.NEB INHALE (22:07)
[2021-08-01] VITALS (15 sets, daily range): BP systolic 159–181; BP diastolic 59–92; PULSE 20–116; RESP 18–26; TEMP 36–36.4; O2SAT 90–98; BMI 37.5
[2021-08-01] MEDS: Albuterol/Iprat 2.5/0.5MG 3 ML AMPUL.NEB INHALE ×7 (00:14→23:38)
[2021-08-01 03:42] LABS: Glucose, Whole Blood 124 mg/dL (60-115)
[2021-08-01] MEDS: Pantoprazole Sodium 40 MG/10 ML VIAL IVPUSH (05:15)
[2021-08-01 07:20] LABS: Glucose, Whole Blood 151 mg/dL (60-115)
[2021-08-01] MEDS: Heparin Sodium,Porcine 5,000 UNIT/ML VIAL 5000 UNIT SUBCUT ×3 (07:42→22:36)
[2021-08-01] MEDS: Insulin Lispro 100 UNIT/ML 3 ML VIAL SUBCUT (07:42)
[2021-08-01] MEDS: dilTIAZem HCL CD 180 MG CAP.ER.24H 360 MG PO (07:43)
[2021-08-01] MEDS: Gabapentin 100 MG CAPSULE PO ×2 (07:43→22:38)
[2021-08-01] MEDS: methylPREDNISolone Sod Succ 125 MG/2 ML VIAL 60 MG IVPUSH (07:43)
[2021-08-01] MEDS: lisinopriL 40 MG TABLET PO (07:43)
[2021-08-01] MEDS: Lidocaine 4 % Patch ADH..PATCH 1 PATCH TRANSDERMA (07:44)
[2021-08-01] MEDS: methADONE HCl 20 MG/2 ML ORAL.CONC 50 MG PO (07:44)
[2021-08-01] MEDS: Loratadine 10 MG TABLET PO (07:54)
--- NOTE | 2021-08-01 09:29 | HO.PM.IMPN ---
Subjective Subjective Date of Service: 08/01/21 Interval History: Acute hypoxemic respiratory failure secondary to COPD/viral uri Review of Systems Patient says that shortness of breath similar to yesterday, denies any chest pain but has dry cough. Denies any abdominal pain or nausea or vomiting. Physical Exam Vital Signs: Vital Signs: Last Vital Signs Temp 96.8 F 08/01/21 07:08 Pulse 108 H 08/01/21 07:08 Resp 26 H 08/01/21 07:42 BP 179/92 H 08/01/21 07:08 Pulse Ox 98 08/01/21 07:08 BMI result Body Mass Index 37.5 Appearance: Alert.? Oriented X3.?? Eyes: Pupils equal, round and reactive to light.? Sclera nonicteric.? ENT: Pharynx normal.? Moist mucous membranes. cvs: rrr, [id number] , no murmur res: air entry diminshed , has b/l rhonchii abd: no rebound or guarding ,nt, bs present. ext pulses present , no cyanosis ,Gait well balanced well coordinated. neuro: axo3 , nonfocal. Objective Data Active Medications Acetaminophen (Acetaminophen 325 Mg Tablet) 325 mg PO Q6H PRN PRN Reason: pain or fever Last Admin: 07/31/21 20:16 Dose: 325 mg Documented by: DAVE Albuterol/Ipratropium (Albuterol/Iprat 2.5/0.5mg 3 Ml Ampul.Neb) 3 ml INHALE RQ4H [facility] Last Admin: 08/01/21 07:41 Dose: 3 ml Documented by: RAHEL Albuterol/Ipratropium (Albuterol/Iprat 2.5/0.5mg 3 Ml Ampul.Neb) 3 ml INHALE Q4H PRN PRN Reason: for wheezing Atorvastatin Calcium (Atorvastatin Calcium 20 Mg Tablet) 20 mg PO BEDTIME [facility] Last Admin: 07/31/21 20:17 Dose: 20 mg Documented by: DAVE Dextrose (Dextrose 50 % 25 Gm/50 Ml Syringe) 25 gm IVPUSH Q15M PRN; Protocol PRN Reason: per Hypoglycemia Standing Ord. Diltiazem HCl (Diltiazem Hcl Cd 180 Mg Cap.Er.24h) 360 mg PO DAILY [facility]; Protocol Last Admin: 08/01/21 07:43 Dose: 360 mg Documented by: JUSTIN Gabapentin (Gabapentin 100 Mg Capsule) 100 mg PO BID [facility] Last Admin: 08/01/21 07:43 Dose: 100 mg Documented by: JUSTIN Glucose (Glucose Gel 15 Gm Gel..Gram.) 15 gm PO Q15M PRN; Protocol PRN Reason: per Hypoglycemia Standing Ord. Heparin Sodium (Porcine) (Heparin Sodium,Porcine 5,000 Unit/Ml Vial) 5,000 unit SUBCUT Q8H [facility] Last Admin: 08/01/21 07:42 Dose: 5,000 unit Documented by: JUSTIN Levofloxacin (Levaquin) 750 mg in 150 mls @ 100 mls/hr IV Q24H [facility] Last Infusion: 07/31/21 20:14 Dose: 0 mls/hr Documented by: DAVE Insulin Glargine (Insulin Glargine,Hum.Rec.Anlog 100 Unit/Ml 10 Ml Vial) 45 unit SUBCUT BEDTIME [facility] Last Admin: 07/31/21 20:17 Dose: 45 unit Documented by: DAVE Insulin Human Lispro (Insulin Lispro 100 Unit/Ml 3 Ml Vial) 0 unit SUBCUT QIDACHS [facility]; Protocol Stop: 08/01/21 11:15 Last Admin: 08/01/21 07:42 Dose: 2 unit Documented by: JUSTIN Levalbuterol HCl (Levalbuterol Hcl 1.25 Mg/0.5 Ml Vial.Neb) 1.25 mg INHALE 8XD PRN PRN Reason: Dyspnea Lidocaine (Lidocaine 4 % Patch Adh..Patch) 1 patch TRANSDERMA DAILY [facility] Last Admin: 08/01/21 07:44 Dose: 1 patch Documented by: JUSTIN Lisinopril (Lisinopril 40 Mg Tablet) 40 mg PO DAILY [facility]; Protocol Last Admin: 08/01/21 07:43 Dose: 40 mg Documented by: JUSTIN Loratadine (Loratadine 10 Mg Tablet) 10 mg PO DAILY [facility] Last Admin: 08/01/21 07:54 Dose: 10 mg Documented by: JUSTIN Methadone HCl (Methadone Hcl 20 Mg/2 Ml Oral.Conc) 50 mg PO DAILY [facility] Last Admin: 08/01/21 07:44 Dose: 50 mg Documented by: JUSTIN Methylprednisolone Sodium Succinate (Methylprednisolone Sod Succ 125 Mg/2 Ml Vial) 60 mg IVPUSH BID [facility] Last Admin: 08/01/21 07:43 Dose: 60 mg Documented by: JUSTIN Montelukast Sodium (Montelukast Sodium 10 Mg Tablet) 10 mg PO BEDTIME [facility] Last Admin: 07/31/21 20:16 Dose: 10 mg Documented by: DAVE Non-Formulary Medication (Arformoterol [Brovana]) 2 ml INHALE Q12H [facility] Non-Formulary Medication (Budesonide) 0.5 mg INHALE BID [facility] Non-Formulary Medication (Roflumilast [Daliresp]) 1 tab PO DAILY [facility] Omeprazole (Omeprazole 40 Mg Capsule.Dr) 40 mg PO DAILY@0630 [facility] Last Admin: 08/01/21 05:16 Dose: Not Given Documented by: NEELAM Non-Admin Reason: protonix given Ondansetron HCl (Ondansetron Hcl 4 Mg/2 Ml Vial) 4 mg IVPUSH Q8H PRN PRN Reason: Nausea Pantoprazole Sodium (Pantoprazole Sodium 40 Mg/10 Ml Vial) 40 mg IVPUSH DAILY@0630 [facility] Last Admin: 08/01/21 05:15 Dose: 40 mg Documented by: NEELAM Pharmacy Consult (Consult Rx Perform Med Rec) 1 each MISCELLANE ONCE PRN PRN Reason: Consult order Prednisone (Prednisone 5 Mg Tablet) 10 mg PO BEDTIME [facility] Last Admin: 07/31/21 20:16 Dose: 10 mg Documented by: DAVE Senna (Sennosides 8.6 Mg Tablet) 8.6 mg PO BEDTIME PRN PRN Reason: constipation Sodium Chloride (Sodium Chloride 3 % Inhalation 4 Ml Vial.Neb) 4 ml INHALE BID [facility] Last Admin: 08/01/21 07:41 Dose: Not Given Documented by: RAHEL Non-Admin Reason: Patient Refused Labs CBC & Chem 7: 07/31/21 05:19 07/31/21 05:19 Labs: Laboratory Results - last 24 hr 07/31/21 07/31/21 07/31/21 10:13 10:13 10:34 ESR 38 H O2 Saturation ABG pH at Pt Temp ABG pCO2 at Pt Temp ABG pO2 at Pt Temp ABG HCO3 ABG Base Excess (Actual) VBG pH 7.42 VBG pCO2 78 VBG pO2 57 VBG HCO3 51 H VBG O2 Saturation 83.0 VBG Base Excess 21.9 POC Glucose Rheumatoid Factor < 15.0 07/31/21 07/31/21 07/31/21 11:21 11:45 15:49 ESR O2 Saturation 89.0 ABG pH at Pt Temp 7.43 ABG pCO2 at Pt Temp 81 H* ABG pO2 at Pt Temp 64 L ABG HCO3 54 H ABG Base Excess (Actual) 24.1 VBG pH VBG pCO2 VBG pO2 VBG HCO3 VBG O2 Saturation VBG Base Excess POC Glucose 151 H 209 H Rheumatoid Factor 07/31/21 07/31/21 08/01/21 16:24 20:13 03:38 ESR O2 Saturation ABG pH at Pt Temp ABG pCO2 at Pt Temp ABG pO2 at Pt Temp ABG HCO3 ABG Base Excess (Actual) VBG pH VBG pCO2 VBG pO2 VBG HCO3 VBG O2 Saturation VBG Base Excess POC Glucose 186 H 172 H 124 H Rheumatoid Factor 08/01/21 07:09 ESR O2 Saturation ABG pH at Pt Temp ABG pCO2 at Pt Temp ABG pO2 at Pt Temp ABG HCO3 ABG Base Excess (Actual) VBG pH VBG pCO2 VBG pO2 VBG HCO3 VBG O2 Saturation VBG Base Excess POC Glucose 151 H Rheumatoid Factor Microbiology Microbiology Results: Microbiology 07/30/21 09:37 Blood Culture - Preliminary Blood - Venous No growth after 24 hours. 07/30/21 09:37 Blood Culture - Preliminary Blood - Venous No growth after 24 hours. Assessment and Plan (1) Acute and chronic respiratory failure: Status: Acute (2) Type 2 diabetes mellitus: Status: Acute Plan 51-year-old lady with underlying morbid obesity, asthma/ COPD overlap syndrome, obesity hypoventilation, on 2 L of supplemental oxygen, nocturnal BiPAP hypogammaglobulinemia on IVIG, opioid dependence on methadone, diabetes mellitus, hypertension, admitted on 06/06/2021 with dyspnea and hypoxia requiring BiPAP support.? Acute on chronic hypoxic hypercapnic respiratory failure secondary to COPD exacerbation, CO2 retention, viral URI Responded well to BiPAP treatment in ICU(transferred from icu yesterday) abnormal CT Continue steroids and oxygen supplement BiPAP at bedtime Pulm eval noted-continue nebs, steroid adjusted, IV antibiotics. If clinically worsen further-may need ABG and repeat chest imaging and we may consider ice evaluation. Traction alkalosis Secondary to hypoxic hypercapnic respiratory failure Follow BMP DM: Fingersticks are running from 150-200 range Monitor fingersticks with sliding scale coverage. ?Opioid dependence continue methadone Hypertension next Lyme continue Cardizem, lisinopril Controlled. Morbid obesity: Encouraged to cut down calories, consider outpatient bariatric evaluation. DVT PPX Lovenox Need for inpatient:Acute on chronic hypoxic hypercapnic respiratory failure secondary to COPD exacerbation, CO2 retention, viral URI Quality Stroke Does the patient have a stroke diagnosis?: No VTE Prior VTE?: No VTE Risk Level:: Medical - moderate - high VTE Device Contraindication: N/A - Device Ordered VTE Drug Contraindication: N/A - Med Ordered
--- NOTE | 2021-08-01 09:31 | P.CONPL_ITS ---
History of Present Illness History of Present Illness Consult date: 08/01/21 Chief complaint: Acute/chronic hypoxic respiratory failure Narrative: This is an inpatient pulmonary consultation. The patient is a 51-year-old with known tobacco dependency in severe obstructive lung disease along with chronic respiratory failure on continues oxygen and noninvasive ventilator. She has been complaining of back pain. X-rays have been abnormal with some question of rib fractures and opacities. She was meant to get a CT scan of the chest. Unfortunately she started developing worsening shortness of breath worsening cough not responding to her respiratory therapy and decided to come in for further evaluation. She did have sick contacts at home. Upon arrival she was found to be in acute on chronic hypercarbic respiratory failure and she was briefly admitted to the ICU on BiPAP. She was able to be transferred out of the unit and now on the floor. She is using her BiPAP on the floor now. She continues on steroids in addition to antibiotics for her COPD exacerbation. I did review her CT scan of the chest it appears that she has some areas of bronchiolitis pulmonary nodules and evidence of pneumonitis. The distribution is consistent with a viral syndrome. Therefore, have her get a respiratory viral panel to assess although viruses that could be potentially doing this to her. In the meantime the patient is struggling with her nicotine withdrawal. Review of Systems Review of Systems: Constitutional : No Fever, No Chills ENT/Mouth : No Hoarseness, No sore throat, No Rhinorrhea Eyes: No Redness, No Discharge, No Vision Changes Cardiovascular : pos Chest Pain, positive SOB, positive Dyspnea on Exertion, No Edema Respiratory : positive Cough, pos Sputum, positive Wheezing, Gastrointestinal : No Nausea, No Vomiting, No Diarrhea, No abdominal Pain Genitourinary : No Dysuria, No Hematuria Musculoskeletal : No joint pain, No Myalgias Skin : No rash Neuro : No Weakness, No Numbness, No Headache Psych : No anxiety, depression Heme/Lymph: No Bruising, No Bleeding Endocrine : No Polyuria, No Polydipsia All other systems reviewed and are negative [facility] Past Medical History Medical History (Updated 08/01/21 @ 09:36 by Allan Brito MD) Abdominal pain Asthma-COPD overlap syndrome Chronic respiratory failure Chronic respiratory failure Congestive heart failure COPD (chronic obstructive pulmonary disease) Diabetes mellitus Essential hypertension Hyperlipidemia, unspecified Hypertensive cardiovascular disease Hypogammaglobulinemia Limb swelling Opioid dependence Poor dentition Pulmonary nodule Rib fractures Status asthmaticus with COPD (chronic obstructive pulmonary disease) Tobacco abuse Type 2 diabetes mellitus Type 2 diabetes mellitus with unspecified complications Family History Family History Father Diabetes Other Asthma Surgical History Surgical History H/O tubal ligation Social History Social History Household Members: Children Household Members Other:: 3 Housing: Apartment Do you presently have visiting nurse or other home services: No Unable to assess alcohol history related to: Unknown Alcohol intake: unknown Patient Tobacco Use Status: Current someday Tobacco user Tobacco use type: Cigarette Cigarettes Per Day: 1 Years Smoked: 35 e-Cigarette/Vaping Use: Currently Using Second Hand Smoke Exposure: No Substance Use Type: Opiates Advance Directives Date on File: 06/12/21 service: No Current occupational status: unemployed and disabled Meds Allergies Allergy/AdvReac Type Severity Reaction Status Date / Time No Known Allergies Allergy Verified 07/24/21 11:20 [No Known Allergies*] Active Medications: Current Medications Acetaminophen (Acetaminophen 325 Mg Tablet) 325 mg PO Q6H PRN PRN Reason: pain or fever Last Admin: 07/31/21 20:16 Dose: 325 mg Documented by: Albuterol/Ipratropium (Albuterol/Iprat 2.5/0.5mg 3 Ml Ampul.Neb) 3 ml INHALE RQ4H ANA Last Admin: 08/01/21 07:41 Dose: 3 ml Documented by: Albuterol/Ipratropium (Albuterol/Iprat 2.5/0.5mg 3 Ml Ampul.Neb) 3 ml INHALE Q4H PRN PRN Reason: for wheezing Atorvastatin Calcium (Atorvastatin Calcium 20 Mg Tablet) 20 mg PO BEDTIME ANA Last Admin: 07/31/21 20:17 Dose: 20 mg Documented by: Dextrose (Dextrose 50 % 25 Gm/50 Ml Syringe) 25 gm IVPUSH Q15M PRN; Protocol PRN Reason: per Hypoglycemia Standing Ord. Diltiazem HCl (Diltiazem Hcl Cd 180 Mg Cap.Er.24h) 360 mg PO DAILY ANA; Protocol Last Admin: 08/01/21 07:43 Dose: 360 mg Documented by: Gabapentin (Gabapentin 100 Mg Capsule) 100 mg PO BID [facility] Last Admin: 08/01/21 07:43 Dose: 100 mg Documented by: Glucose (Glucose Gel 15 Gm Gel..Gram.) 15 gm PO Q15M PRN; Protocol PRN Reason: per Hypoglycemia Standing Ord. Heparin Sodium (Porcine) (Heparin Sodium,Porcine 5,000 Unit/Ml Vial) 5,000 unit SUBCUT Q8H [facility] Last Admin: 08/01/21 07:42 Dose: 5,000 unit Documented by: Levofloxacin (Levaquin) 750 mg in 150 mls @ 100 mls/hr IV Q24H [facility] Last Infusion: 07/31/21 20:14 Dose: Infused Documented by: Insulin Glargine (Insulin Glargine,Hum.Rec.Anlog 100 Unit/Ml 10 Ml Vial) 45 unit SUBCUT BEDTIME [facility] Last Admin: 07/31/21 20:17 Dose: 45 unit Documented by: Insulin Human Lispro (Insulin Lispro 100 Unit/Ml 3 Ml Vial) 0 unit SUBCUT QIDACHS [facility]; Protocol Stop: 08/01/21 11:15 Last Admin: 08/01/21 07:42 Dose: 2 unit Documented by: Levalbuterol HCl (Levalbuterol Hcl 1.25 Mg/0.5 Ml Vial.Neb) 1.25 mg INHALE 8XD PRN PRN Reason: Dyspnea Lidocaine (Lidocaine 4 % Patch Adh..Patch) 1 patch TRANSDERMA DAILY [facility] Last Admin: 08/01/21 07:44 Dose: 1 patch Documented by: Lisinopril (Lisinopril 40 Mg Tablet) 40 mg PO DAILY [facility]; Protocol Last Admin: 08/01/21 07:43 Dose: 40 mg Documented by: Loratadine (Loratadine 10 Mg Tablet) 10 mg PO DAILY [facility] Last Admin: 08/01/21 07:54 Dose: 10 mg Documented by: Methadone HCl (Methadone Hcl 20 Mg/2 Ml Oral.Conc) 50 mg PO DAILY [facility] Last Admin: 08/01/21 07:44 Dose: 50 mg Documented by: Methylprednisolone Sodium Succinate (Methylprednisolone Sod Succ 125 Mg/2 Ml Vial) 60 mg IVPUSH BID [facility] Last Admin: 08/01/21 07:43 Dose: 60 mg Documented by: Montelukast Sodium (Montelukast Sodium 10 Mg Tablet) 10 mg PO BEDTIME [facility] Last Admin: 07/31/21 20:16 Dose: 10 mg Documented by: Non-Formulary Medication (Arformoterol [Brovana]) 2 ml INHALE Q12H [facility] Non-Formulary Medication (Budesonide) 0.5 mg INHALE BID [facility] Non-Formulary Medication (Roflumilast [Daliresp]) 1 tab PO DAILY [facility] Omeprazole (Omeprazole 40 Mg Capsule.) 40 mg PO DAILY@0630 [facility] Last Admin: 08/01/21 05:16 Dose: Not Given Documented by: Ondansetron HCl (Ondansetron Hcl 4 Mg/2 Ml Vial) 4 mg IVPUSH Q8H PRN PRN Reason: Nausea Pantoprazole Sodium (Pantoprazole Sodium 40 Mg/10 Ml Vial) 40 mg IVPUSH DAILY@0630 [facility] Last Admin: 08/01/21 05:15 Dose: 40 mg Documented by: Pharmacy Consult (Consult Rx Perform Med Rec) 1 each MISCELLANE ONCE PRN PRN Reason: Consult order Prednisone (Prednisone 5 Mg Tablet) 10 mg PO BEDTIME [facility] Last Admin: 07/31/21 20:16 Dose: 10 mg Documented by: Senna (Sennosides 8.6 Mg Tablet) 8.6 mg PO BEDTIME PRN PRN Reason: constipation Sodium Chloride (Sodium Chloride 3 % Inhalation 4 Ml Vial.Neb) 4 ml INHALE BID [facility] Last Admin: 08/01/21 07:41 Dose: Not Given Documented by: Home Medications Medication Instructions Recorded Confirmed Last Taken Type albuterol sulfate 90 mcg/actuation 2 puff INHALATION Q4H PRN 12/30/19 07/30/21 02/21/21 History aerosol inhaler (ProAir HFA) loratadine 10 mg tablet (Claritin) 10 mg PO DAILY 12/30/19 07/30/21 02/21/21 History montelukast 10 mg tablet 10 mg PO BEDTIME 12/30/19 07/30/21 02/20/21 History gabapentin 100 mg capsule 1 cap PO BID 10/14/20 07/30/21 02/21/21 History diltiazem HCl 360 mg capsule,24 1 cap PO DAILY 11/16/20 07/30/21 02/21/21 History hr,extended release (Tiadylt ER) roflumilast 500 mcg tablet 1 tab PO DAILY 11/16/20 07/30/21 02/21/21 History (Daliresp) rosuvastatin 5 mg tablet 1 tab PO BEDTIME 11/16/20 07/30/21 02/20/21 History insulin lispro 100 unit/mL See Protocol SUBCUT TIDAC 12/14/20 07/30/21 02/21/21 History subcutaneous solution (Humalog U-100 Insulin) lidocaine 5 % topical patch 1 patch TOPICAL DAILY 12/14/20 07/30/21 02/21/21 History metformin 500 mg tablet,extended 2 tab PO BID 05/18/21 07/30/21 Unknown History release 24 hr prednisone 10 mg tablet 20 mg PO DAILY 05/18/21 07/30/21 Unknown History theophylline 400 mg 800 mg PO DAILY 05/18/21 07/30/21 Unknown History capsule,extended release 24 hr (Arnoldo-24) ergocalciferol (vitamin D2) 1,250 1,250 mcg PO QWEEK 06/06/21 07/30/21 Unknown History mcg (50,000 unit) capsule methadone 10 mg/mL oral concentrate 49 mg PO DAILY 06/06/21 07/31/21 07/30/21 History insulin glargine 100 unit/mL 45 unit SUBCUT BEDTIME 06/07/21 07/30/21 Unknown History subcutaneous solution (Lantus U-100 Insulin) lisinopril 40 mg tablet 1 tab PO DAILY 07/30/21 07/30/21 Unknown History prednisone 5 mg tablet 10 mg PO BEDTIME 07/30/21 07/30/21 Unknown History sodium chloride 7 % for 4 ml INHALATION BID 07/30/21 07/30/21 Unknown History nebulization Physical Exam Vital Signs: Vital Signs: Last Vital Signs Temp 96.8 F 08/01/21 07:08 Pulse 108 H 08/01/21 07:08 Resp 26 H 08/01/21 07:42 BP 179/92 H 08/01/21 07:08 Pulse Ox 98 08/01/21 07:08 BMI result Body Mass Index 37.5 Const: General: alert, acute distress mild and respiratory, ill appearing and tired appearing Neck: Neck: Yes normal visual inspection, Yes full ROM and Yes no lymphadenopathy Chest: Chest palpation & inspection: normal inspection of the chest Resp: Auscultation: wheezes and diminished lung sounds Cardio: Rate: regular rate Rhythm: regular rhythm Heart sounds: S1 normal heart sound present and S2 normal heart sound present GI: Palpation (GI): Soft to palpation and nontender Auscultation: normal bowel sounds Skin: General skin exam: rashes and/or lesions noted Results Laboratory Findings CBC and BMP: 07/31/21 05:19 07/31/21 05:19 ABG, PT/INR, D-dimer: PT/INR, D-dimer PT 10.2 SEC (9.9-13.0) 07/30/21 09:20 INR 0.9 (0.9-1.1) 07/30/21 09:20 Abnormal lab findings: Abnormal Labs 07/30/21 07/30/21 07/30/21 09:20 09:20 09:22 RBC 4.07 L MCV 98.5 H MCHC 30.2 L MPV 8.9 L Immature Gran % (Auto) 0.6 H Neut % (Auto) 81.8 H Lymph % (Auto) 10.7 L Lymph # (Auto) 1.1 L Abs Immat Gran (auto) 0.06 H Absolute Neuts (auto) 8.8 H ESR ABG pH at Pt Temp ABG pCO2 at Pt Temp ABG pO2 at Pt Temp ABG HCO3 VBG HCO3 64 H Chloride 93 L Carbon Dioxide 43 H* Anion Gap 10 L BUN 21 H D POC Glucose Random Glucose C-Reactive Protein 1.52 H 07/30/21 07/31/21 07/31/21 10:13 05:17 05:19 RBC 4.16 L MCV MCHC 30.9 L MPV 9.0 L Immature Gran % (Auto) Neut % (Auto) 93.3 H Lymph % (Auto) 2.8 L Lymph # (Auto) 0.3 L Abs Immat Gran (auto) 0.04 H Absolute Neuts (auto) 8.5 H ESR ABG pH at Pt Temp 7.33 L ABG pCO2 at Pt Temp 91 H* ABG pO2 at Pt Temp 51 L ABG HCO3 49 H VBG HCO3 48 H Chloride Carbon Dioxide Anion Gap BUN POC Glucose Random Glucose C-Reactive Protein 07/31/21 07/31/21 07/31/21 05:19 10:13 10:34 RBC MCV MCHC MPV Immature Gran % (Auto) Neut % (Auto) Lymph % (Auto) Lymph # (Auto) Abs Immat Gran (auto) Absolute Neuts (auto) ESR 38 H ABG pH at Pt Temp ABG pCO2 at Pt Temp ABG pO2 at Pt Temp ABG HCO3 VBG HCO3 51 H Chloride 92 L Carbon Dioxide 41 H* Anion Gap BUN POC Glucose Random Glucose 120 H C-Reactive Protein 07/31/21 07/31/21 07/31/21 11:21 11:45 15:49 RBC MCV MCHC MPV Immature Gran % (Auto) Neut % (Auto) Lymph % (Auto) Lymph # (Auto) Abs Immat Gran (auto) Absolute Neuts (auto) ESR ABG pH at Pt Temp ABG pCO2 at Pt Temp 81 H* ABG pO2 at Pt Temp 64 L ABG HCO3 54 H VBG HCO3 Chloride Carbon Dioxide Anion Gap BUN POC Glucose 151 H 209 H Random Glucose C-Reactive Protein 07/31/21 07/31/21 08/01/21 16:24 20:13 03:38 RBC MCV MCHC MPV Immature Gran % (Auto) Neut % (Auto) Lymph % (Auto) Lymph # (Auto) Abs Immat Gran (auto) Absolute Neuts (auto) ESR ABG pH at Pt Temp ABG pCO2 at Pt Temp ABG pO2 at Pt Temp ABG HCO3 VBG HCO3 Chloride Carbon Dioxide Anion Gap BUN POC Glucose 186 H 172 H 124 H Random Glucose C-Reactive Protein 08/01/21 07:09 RBC MCV MCHC MPV Immature Gran % (Auto) Neut % (Auto) Lymph % (Auto) Lymph # (Auto) Abs Immat Gran (auto) Absolute Neuts (auto) ESR ABG pH at Pt Temp ABG pCO2 at Pt Temp ABG pO2 at Pt Temp ABG HCO3 VBG HCO3 Chloride Carbon Dioxide Anion Gap BUN POC Glucose 151 H Random Glucose C-Reactive Protein Microbiology: Microbiology 07/30/21 09:37 Blood - Venous Blood Culture - Preliminary No growth after 24 hours. 07/30/21 09:37 Blood - Venous Blood Culture - Preliminary No growth after 24 hours. Assessment and Plan (1) Acute and chronic respiratory failure: Status: Acute (2) Status asthmaticus with COPD (chronic obstructive pulmonary disease): Status: Acute (3) Pneumonitis: Status: Acute (4) Pneumonia: Qualifiers: Laterality: bilateral Lung location: unspecified part of lung Pneumonia type: due to unspecified organism Qualified Code(s): J18.9 - Pneumonia, unspecified organism Status: Acute Plan Continue BIPAP Respiratory viral panel Increase Solu-Medrol Continue Levaquin Continue nebulized therapy every 4 hours and every 2 hours as needed Nicotine patch has been ordered Continue oxygen to maintain a pulse ox above 90% Procedures Date of Service Date of Service: 08/01/21
[2021-08-01 11:03] LABS: Glucose, Whole Blood 197 mg/dL (60-115)
[2021-08-01] MEDS: Nicotine 21 MG PATCH.TD24 TRANSDERMA (11:22)
[2021-08-01 12:41] LABS: Human metapneumovirus PCR Detected (Not Detect.)
[2021-08-01 12:42] LABS: Adenovirus PCR Not Detected (Not Detect.); Bordetella parapertussis PCR Not Detected (Not Detect.); Bordetella pertussis PCR Not Detected (Not Detect.); Chlamydia pneumoniae PCR Not Detected (Not Detect.); Coronavirus 229E PCR Not Detected (Not Detect.); Coronavirus HKU1 PCR Not Detected (Not Detect.); Coronavirus NL63 PCR Not Detected (Not Detect.); Coronavirus OC43 PCR Not Detected (Not Detect.); Influenza A PCR Not Detected (Not Detect.); Influenza B PCR Not Detected (Not Detect.); SARS-CoV-2 PCR Not Detected (Not Detect.)
[2021-08-01 12:43] LABS: Mycoplasma pneumoniae PCR Not Detected (Not Detect.); Parainfluenza 1 PCR Not Detected (Not Detect.); Parainfluenza 2 PCR Not Detected (Not Detect.); Parainfluenza 3 PCR Not Detected (Not Detect.); Parainfluenza 4 PCR Not Detected (Not Detect.); RSV PCR Not Detected (Not Detect.); Rhino/Enterovirus PCR Not Detected (Not Detect.)
--- NOTE | 2021-08-01 14:08 | MHC.CM.PN ---
Female 51 DX Respiratory failure Transferred from ICU yesterday. DP home with resumption of [employer] services. Family will provide transportation home. Edgardo is Oxygen provider
[2021-08-01] MEDS: levoFLOXacin/D5W 750 MG/150 ML PIGGYBACK 100 MG IV (14:15)
[2021-08-01] MEDS: methylPREDNISolone Sod Succ 125 MG/2 ML VIAL 80 MG IVPUSH ×2 (14:15→22:36)
[2021-08-01 15:55] LABS: Glucose, Whole Blood 237 mg/dL (60-115)
[2021-08-01 20:29] LABS: Glucose, Whole Blood 253 mg/dL (60-115)
[2021-08-01] MEDS: Sodium Chloride 3 % Inhalation 4 ML VIAL.NEB INHALE (21:56)
[2021-08-01] MEDS: Insulin Glargine,Hum.rec.anlog 100 UNIT/ML 10 ML VIAL 45 UNIT SUBCUT (22:36)
[2021-08-01] MEDS: Atorvastatin Calcium 20 MG TABLET PO (22:38)
[2021-08-01] MEDS: Montelukast Sodium 10 MG TABLET PO (22:38)
[2021-08-01] MEDS: Morphine Sulfate 2 MG/ML CARTRIDGE IVPUSH (23:06)
[2021-08-02] VITALS (15 sets, daily range): BP systolic 137–180; BP diastolic 62–98; PULSE 91–133; RESP 18–25; TEMP 35.6–36.4; O2SAT 86–95
[2021-08-02] MEDS: methylPREDNISolone Sod Succ 125 MG/2 ML VIAL 80 MG IVPUSH ×3 (04:10→21:04)
[2021-08-02] MEDS: Albuterol/Iprat 2.5/0.5MG 3 ML AMPUL.NEB INHALE ×5 (04:58→18:52)
[2021-08-02] MEDS: Heparin Sodium,Porcine 5,000 UNIT/ML VIAL 5000 UNIT SUBCUT ×2 (05:53→14:43)
[2021-08-02] MEDS: Omeprazole 40 MG CAPSULE.DR PO (05:55)
[2021-08-02 07:10] LABS: Glucose, Whole Blood 189 mg/dL (60-115)
[2021-08-02 07:57] LABS: Anion Gap 12 (12-20); Blood Urea Nitrogen 19 mg/dL (9-16); Calcium 9.5 mg/dL (8.4-10.2); Carbon Dioxide 44 mmol/L (22-29); Chloride 89 mmol/L (96-108); Creatinine Clr Calc Pharmacy 123.6; Estimated Glomerular Filt Rate > 60; Glucose Random 208 mg/dL (60-115); Potassium 4.9 mmol/L (3.3-5.1); Sodium 140 mmol/L (135-145)
--- NOTE | 2021-08-02 08:59 | P.PNIM_ITS ---
Subjective Subjective Date of Service: 08/02/21 Interval History: Acute hypoxemic respiratory failure secondary to COPD/viral uri Review of Systems Had episode of significant short of breath this morning which will responded well with steroids, nebs and magnesium. Shortness of breath some but better Has dry cough Denies any chest pain or abdominal pain Physical Exam Vital Signs: Vital Signs: Last Vital Signs Temp 96.1 F L 08/02/21 07:22 Pulse 98 08/02/21 07:22 Resp 22 H 08/02/21 07:22 BP 180/98 H 08/02/21 07:22 Pulse Ox 94 08/02/21 07:22 BMI result Body Mass Index 37.5 Appearance: Alert.? Oriented X3.?? Eyes: Pupils equal, round and reactive to light.? Sclera nonicteric.? ENT: Pharynx normal.? Moist mucous membranes. cvs: rrr, [id number] , no murmur res: air entry tight, has b/l rhonchii abd: no rebound or guarding ,nt, bs present. ext pulses present , no cyanosis ,Gait well balanced well coordinated. neuro: axo3 , nonfocal Objective Data Active Medications Acetaminophen (Acetaminophen 325 Mg Tablet) 325 mg PO Q6H PRN PRN Reason: pain or fever Last Admin: 07/31/21 20:16 Dose: 325 mg Documented by: DAVE Albuterol/Ipratropium (Albuterol/Iprat 2.5/0.5mg 3 Ml Ampul.Neb) 3 ml INHALE RQ4H [facility] Last Admin: 08/02/21 08:57 Dose: Not Given Documented by: SANJAY Non-Admin Reason: MD wants a 10mg tx Albuterol/Ipratropium (Albuterol/Iprat 2.5/0.5mg 3 Ml Ampul.Neb) 3 ml INHALE Q4H PRN PRN Reason: for wheezing Atorvastatin Calcium (Atorvastatin Calcium 20 Mg Tablet) 20 mg PO BEDTIME [facility] Last Admin: 08/01/21 22:38 Dose: 20 mg Documented by: DAQUAN Dextrose (Dextrose 50 % 25 Gm/50 Ml Syringe) 25 gm IVPUSH Q15M PRN; Protocol PRN Reason: per Hypoglycemia Standing Ord. Diltiazem HCl (Diltiazem Hcl Cd 180 Mg Cap.Er.24h) 360 mg PO DAILY [facility]; Protocol Last Admin: 08/01/21 07:43 Dose: 360 mg Documented by: JUSTIN Gabapentin (Gabapentin 100 Mg Capsule) 100 mg PO BID [facility] Last Admin: 08/01/21 22:38 Dose: 100 mg Documented by: DAQUAN Glucose (Glucose Gel 15 Gm Gel..Gram.) 15 gm PO Q15M PRN; Protocol PRN Reason: per Hypoglycemia Standing Ord. Heparin Sodium (Porcine) (Heparin Sodium,Porcine 5,000 Unit/Ml Vial) 5,000 unit SUBCUT Q8H [facility] Last Admin: 08/02/21 05:53 Dose: 5,000 unit Documented by: DAQUAN Levofloxacin (Levaquin) 750 mg in 150 mls @ 100 mls/hr IV Q24H [facility] Last Infusion: 08/01/21 16:32 Dose: 0 mls/hr Documented by: JUSTIN Insulin Glargine (Insulin Glargine,Hum.Rec.Anlog 100 Unit/Ml 10 Ml Vial) 45 unit SUBCUT BEDTIME [facility] Last Admin: 08/01/21 22:36 Dose: 45 unit Documented by: DAQUAN Levalbuterol HCl (Levalbuterol Hcl 1.25 Mg/0.5 Ml Vial.Neb) 1.25 mg INHALE 8XD PRN PRN Reason: Dyspnea Lidocaine (Lidocaine 4 % Patch Adh..Patch) 1 patch TRANSDERMA DAILY [facility] Last Admin: 08/01/21 07:44 Dose: 1 patch Documented by: JUSTIN Lisinopril (Lisinopril 40 Mg Tablet) 40 mg PO DAILY [facility]; Protocol Last Admin: 08/01/21 07:43 Dose: 40 mg Documented by: JUSTIN Loratadine (Loratadine 10 Mg Tablet) 10 mg PO DAILY [facility] Last Admin: 08/01/21 07:54 Dose: 10 mg Documented by: JUSTIN Methadone HCl (Methadone Hcl 20 Mg/2 Ml Oral.Conc) 50 mg PO DAILY [facility] Last Admin: 08/01/21 07:44 Dose: 50 mg Documented by: JUSTIN Methylprednisolone Sodium Succinate (Methylprednisolone Sod Succ 125 Mg/2 Ml Vial) 80 mg IVPUSH Q6H [facility] Last Admin: 08/02/21 04:10 Dose: 80 mg Documented by: DAQUAN Montelukast Sodium (Montelukast Sodium 10 Mg Tablet) 10 mg PO BEDTIME [facility] Last Admin: 08/01/21 22:38 Dose: 10 mg Documented by: DAQUAN Nicotine (Nicotine 21 Mg Patch.Td24) 21 mg TRANSDERMA DAILY [facility] Last Admin: 08/01/21 11:22 Dose: 21 mg Documented by: IGLESM Non-Formulary Medication (Arformoterol [Brovana]) 2 ml INHALE Q12H [facility] Non-Formulary Medication (Budesonide) 0.5 mg INHALE BID [facility] Non-Formulary Medication (Roflumilast [Daliresp]) 1 tab PO DAILY [facility] Omeprazole (Omeprazole 40 Mg Capsule.) 40 mg PO DAILY@0630 [facility] Last Admin: 08/02/21 05:55 Dose: 40 mg Documented by: DAQUAN Ondansetron HCl (Ondansetron Hcl 4 Mg/2 Ml Vial) 4 mg IVPUSH Q8H PRN PRN Reason: Nausea Pantoprazole Sodium (Pantoprazole Sodium 40 Mg/10 Ml Vial) 40 mg IVPUSH DAILY@0630 [facility] Last Admin: 08/02/21 05:55 Dose: Not Given Documented by: DAQUAN Non-Admin Reason: Duplicate Order Pharmacy Consult (Consult Rx Perform Med Rec) 1 each MISCELLANE ONCE PRN PRN Reason: Consult order Prednisone (Prednisone 5 Mg Tablet) 10 mg PO BEDTIME [facility] Last Admin: 07/31/21 20:16 Dose: 10 mg Documented by: DAVE Senna (Sennosides 8.6 Mg Tablet) 8.6 mg PO BEDTIME PRN PRN Reason: constipation Sodium Chloride (Sodium Chloride 3 % Inhalation 4 Ml Vial.Neb) 4 ml INHALE BID [facility] Last Admin: 08/01/21 21:56 Dose: 4 ml Documented by: TIO Labs CBC & Chem 7: 07/31/21 05:19 08/02/21 07:18 Labs: Laboratory Results - last 24 hr 08/01/21 08/01/21 08/01/21 11:01 11:19 15:52 Anion Gap Estim Creat Clear Calc Estimated GFR POC Glucose 197 H 237 H Random Glucose Calcium Respiratory Panel Holder See Note Adenovirus (Rapid PCR) Not Detected B.pert (TEM-PCR) Not Detected B.parapertussis DNA PCR Not Detected C. pneumoniae DNA (PCR) Not Detected Coronavirus OC43 (PCR) Not Detected Coronavirus HKU1 (PCR) Not Detected Coronavirus 229E (PCR) Not Detected Coronavirus NL63 (PCR) Not Detected Human Metapneumovir PCR Detected A Influenza A (RT-PCR) Not Detected Influenza B (RT-PCR) Not Detected M. pneumoniae (PCR) Not Detected Parainfluenza 1 (PCR) Not Detected Parainfluenza 2 (PCR) Not Detected Parainfluenza 3 (PCR) Not Detected Parainfluenza 4 (PCR) Not Detected RSV (PCR) Not Detected Entero/Rhino (PCR) Not Detected SARS-CoV-2 RNA (RT-PCR) Not Detected 08/01/21 08/02/21 08/02/21 20:26 07:07 07:18 Anion Gap 12 Estim Creat Clear Calc 123.6 Estimated GFR > 60 POC Glucose 253 H 189 H Random Glucose 208 H Calcium 9.5 Respiratory Panel Holder Adenovirus (Rapid PCR) B.pert (TEM-PCR) B.parapertussis DNA PCR C. pneumoniae DNA (PCR) Coronavirus OC43 (PCR) Coronavirus HKU1 (PCR) Coronavirus 229E (PCR) Coronavirus NL63 (PCR) Human Metapneumovir PCR Influenza A (RT-PCR) Influenza B (RT-PCR) M. pneumoniae (PCR) Parainfluenza 1 (PCR) Parainfluenza 2 (PCR) Parainfluenza 3 (PCR) Parainfluenza 4 (PCR) RSV (PCR) Entero/Rhino (PCR) SARS-CoV-2 RNA (RT-PCR) Microbiology Microbiology Results: Microbiology 07/30/21 09:37 Blood Culture - Preliminary Blood - Venous No growth after 48 hours. 07/30/21 09:37 Blood Culture - Preliminary Blood - Venous No growth after 48 hours. Assessment and Plan (1) Acute and chronic respiratory failure: Status: Acute (2) Status asthmaticus with COPD (chronic obstructive pulmonary disease): Status: Acute Plan 51-year-old lady with underlying morbid obesity, asthma/ COPD overlap syndrome, obesity hypoventilation, on 2 L of supplemental oxygen, nocturnal BiPAP hypogammaglobulinemia on IVIG, opioid dependence on methadone, diabetes mellitus, hypertension, admitted on 06/06/2021 with dyspnea and hypoxia requiring BiPAP support.? Acute on chronic hypoxic hypercapnic respiratory failure secondary to COPD exacerbation, CO2 retention, viral URI(human metapneumovirus) Responded well to BiPAP treatment in ICU(transferred from icu yesterday) abnormal CT Continue steroids and oxygen supplement BiPAP at bedtime Sandra maki noted-continue nebs, steroid adjusted, IV antibiotics. Had episode of significant short of breath this morning which will responded well with steroids, nebs and magnesium. vbg seeems better Traction alkalosis Secondary to hypoxic hypercapnic respiratory failure Follow BMP DM:?( previous admission in may-was on metformin/sliding scale) Fing ersticks are running from 150-200 range Monitor fingersticks with sliding scale coverage. Hba1c levels ?Opioid dependence continue methadone Hypertension next Lyme continue Cardizem, lisinopril Controlled. Morbid obesity: Encouraged to cut down calories, consider outpatient bariatric evaluation. DVT PPX Lovenox Need for inpatient:Acute on chronic hypoxic hypercapnic respiratory failure secondary to COPD exacerbation, CO2 retention, viral URI Quality Stroke Does the patient have a stroke diagnosis?: No VTE Prior VTE?: No VTE Risk Level:: Medical - moderate - high VTE Device Contraindication: N/A - Device Ordered VTE Drug Contraindication: N/A - Med Ordered
[2021-08-02] MEDS: Albuterol Sulfate (0.083%) 2.5 MG/3 ML VIAL.NEB 5 MG INHALE (09:00)
[2021-08-02] MEDS: Morphine Sulfate 2 MG/ML CARTRIDGE 1 MG IVPUSH (09:11)
[2021-08-02] MEDS: methylPREDNISolone Sod Succ 125 MG/2 ML VIAL IVPUSH (09:14)
[2021-08-02] MEDS: Nicotine 21 MG PATCH.TD24 TRANSDERMA (09:18)
[2021-08-02] MEDS: Lidocaine 4 % Patch ADH..PATCH 1 PATCH TRANSDERMA (09:20)
--- NOTE | 2021-08-02 09:21 | MHC.PIE ---
Increase work of breathing noted in evening - O2sat >90, but RR 27-32. Patient appears shaky - tremulous hands. Patient on bipap 18/8. RT called - updrafts given - assessed patient and bipap settings. Dr Meehan made aware of concern - ordered 2mg IVP morphine - given at 2306. Patient continued feeling mildly anxious, but by 2 or 3am patient calmed down and fell asleep - tolerated bipap, RR down to 12-16. Work of breathing improved. Dr Meehan came to bedside to assess patient as well.
[2021-08-02] MEDS: dilTIAZem HCL CD 180 MG CAP.ER.24H 360 MG PO (09:22)
[2021-08-02] MEDS: Loratadine 10 MG TABLET PO (09:22)
[2021-08-02] MEDS: Gabapentin 100 MG CAPSULE PO ×2 (09:22→21:04)
[2021-08-02] MEDS: lisinopriL 40 MG TABLET PO (09:22)
[2021-08-02] MEDS: methADONE HCl 20 MG/2 ML ORAL.CONC 50 MG PO (09:22)
[2021-08-02 10:02] LABS: VBG Base Excess 22.1 mmol/L; VBG HCO3 49 mmol/L (22-26); VBG pCO2 62 mmHg; VBG pO2 86 mmHg
[2021-08-02 10:02] LABS: Venous Blood Gas Refer to POC result
[2021-08-02 11:34] LABS: Glucose, Whole Blood 241 mg/dL (60-115)
--- NOTE | 2021-08-02 11:46 | MHC.CARE ---
CARE Team attempted to meet with Pt. Pt was receiving a breathing treatment and was short of breath today. Plan for CARE Team to follow up with Pt tomorrow.
[2021-08-02 14:30] LABS: Myeloperoxidase Antibody <1.0 AI; Proteinase 3 PR3 Antibodies <1.0 AI
[2021-08-02 15:24] LABS: Anti Nuclear Antibody Pattern Nuclear, Speckled; Anti Nuclear Antibody Screen POSITIVE (NEGATIVE); Anti Nuclear Antibody Titer 1:40 titer
[2021-08-02 16:27] LABS: Glucose, Whole Blood 215 mg/dL (60-115)
[2021-08-02] MEDS: Insulin Lispro 100 UNIT/ML 3 ML VIAL SUBCUT ×2 (16:44→21:14)
[2021-08-02] MEDS: Magnesium Sulfate/D5W 1 GM/100 ML PIGGYBACK IV (16:46)
--- NOTE | 2021-08-02 17:03 | PM.PNPUL ---
Subjective Subjective Date of Service: 08/02/21 Interval history: The patient was seen on exam. She was having hard time this morning. She was having hard time even on the BiPAP. Her lungs were very tight. She was sitting in a tripod position in respiratory distress. She was given several treatments of albuterol with ipratropium. The patient also received 125 mg Solu-Medrol and given a dose of morphine. Her BiPAP was increased to initially to 22/10 and then brought down again to 20 over time. The patient's settle down. However, she continues to be significantly ill with this viral syndrome resulting in a significant COPD exacerbation. The patient is concerned about going to the unit because she gets more anxious on the unit. Her is with her. If her symptoms worsen or has more recurrent episodes like this she will need ICU level of care. Objective Data Labs CBC & Chem 7: 07/31/21 05:19 08/02/21 07:18 Labs: Laboratory Results - last 24 hr 07/31/21 07/31/21 08/01/21 10:13 10:13 20:26 VBG pH VBG pCO2 VBG pO2 VBG HCO3 VBG O2 Saturation VBG Base Excess Sodium Potassium Chloride Carbon Dioxide Anion Gap BUN Creatinine Estim Creat Clear Calc Estimated GFR POC Glucose 253 H Random Glucose Calcium CAROLYNE Screen POSITIVE A CAROLYNE Titer 1:40 H CAROLYNE Pattern Nuclear, Speckled A Proteinase 3 (PR3) Ab <1.0 Myeloperoxidase Ab <1.0 08/02/21 08/02/21 08/02/21 07:07 07:18 09:57 VBG pH 7.50 H VBG pCO2 62 VBG pO2 86 VBG HCO3 49 H VBG O2 Saturation 96.0 VBG Base Excess 22.1 Sodium 140 Potassium 4.9 Chloride 89 L Carbon Dioxide 44 H* Anion Gap 12 BUN 19 H Creatinine 0.55 Estim Creat Clear Calc 123.6 Estimated GFR > 60 POC Glucose 189 H Random Glucose 208 H Calcium 9.5 CAROLYNE Screen CAROLYNE Titer CAROLYNE Pattern Proteinase 3 (PR3) Ab Myeloperoxidase Ab 08/02/21 08/02/21 11:31 16:25 VBG pH VBG pCO2 VBG pO2 VBG HCO3 VBG O2 Saturation VBG Base Excess Sodium Potassium Chloride Carbon Dioxide Anion Gap BUN Creatinine Estim Creat Clear Calc Estimated GFR POC Glucose 241 H 215 H Random Glucose Calcium CAROLYNE Screen CAROLYNE Titer CAROLYNE Pattern Proteinase 3 (PR3) Ab Myeloperoxidase Ab Microbiology Microbiology Results: Microbiology 07/30/21 09:37 Blood - Venous Blood Culture - Preliminary No growth after 48 hours. 07/30/21 09:37 Blood - Venous Blood Culture - Preliminary No growth after 48 hours. Review of Systems Review of Systems Constitutional : No Fever, No Chills +distress ENT/Mouth : No Hoarseness, No sore throat, No Rhinorrhea Eyes: No Redness, No Discharge, No Vision Changes Cardiovascular : pos Chest Pain, positive SOB, positive Dyspnea on Exertion, No Edema Respiratory : positive Cough, pos Sputum, positive Wheezing, Gastrointestinal : No Nausea, No Vomiting, No Diarrhea, No abdominal Pain Genitourinary : No Dysuria, No Hematuria Musculoskeletal : No joint pain, No Myalgias Skin : No rash Neuro : No Weakness, No Numbness, No Headache Psych : No anxiety, depression Heme/Lymph: No Bruising, No Bleeding Endocrine : No Polyuria, No Polydipsia All other systems reviewed and are negative Physical Exam Vital Signs: Vital Signs: Last Vital Signs Temp 97.2 F 08/02/21 15:17 Pulse 91 08/02/21 15:29 Resp 25 H 08/02/21 15:30 BP 137/86 08/02/21 15:17 Pulse Ox 92 08/02/21 15:17 BMI result Body Mass Index 37.5 Const: General: alert and acute distress moderate and respiratory Neck: Neck: Yes normal visual inspection, Yes full ROM and Yes no lymphadenopathy Chest: Chest palpation & inspection: normal inspection of the chest Resp: Auscultation: wheezes and diminished lung sounds Cardio: Rate: regular rate Rhythm: regular rhythm Heart sounds: S1 normal heart sound present and S2 normal heart sound present GI: Palpation (GI): Soft to palpation and nontender Auscultation: normal bowel sounds Skin: General skin exam: rashes and/or lesions noted Procedures Date of Service Date of Service: 08/02/21 Assessment and Plan Assessment and plan (1) Acute and chronic respiratory failure: Status: Acute (2) Pneumonitis: Status: Acute (3) COPD exacerbation: Status: Acute (4) Viral syndrome: Status: Acute Plan Solu-Medrol 125 mg IV x1 now then continue the mg Nebulizer therapy every 4 hours and every 2 hours as needed Continue BiPAP Patient may need ICU level of care. Venous gas will be acquired Time Spent With Patient Time: Total time spent is greater than 50% in coordination of care (as documented) at patient's floor/unit and/or counseling patient: Progress Note: Quality Stroke Does the patient have a stroke diagnosis?: No
[2021-08-02] MEDS: levoFLOXacin/D5W 750 MG/150 ML PIGGYBACK 100 MG IV (17:50)
[2021-08-02 20:06] LABS: Glucose, Whole Blood 240 mg/dL (60-115)
[2021-08-02] MEDS: Atorvastatin Calcium 20 MG TABLET PO (21:04)
[2021-08-02] MEDS: Montelukast Sodium 10 MG TABLET PO (21:04)
[2021-08-02] MEDS: Insulin Glargine,Hum.rec.anlog 100 UNIT/ML 10 ML VIAL 45 UNIT SUBCUT (21:18)
[2021-08-03] VITALS (22 sets, daily range): BP systolic 131–157; BP diastolic 73–87; PULSE 70–118; RESP 12–24; TEMP 36.2–37.2; O2SAT 86–109; BMI 38.1
[2021-08-03] MEDS: Albuterol/Iprat 2.5/0.5MG 3 ML AMPUL.NEB INHALE ×7 (00:01→20:11)
[2021-08-03] MEDS: Heparin Sodium,Porcine 5,000 UNIT/ML VIAL 5000 UNIT SUBCUT ×4 (00:18→22:07)
[2021-08-03] MEDS: methylPREDNISolone Sod Succ 125 MG/2 ML VIAL 80 MG IVPUSH ×4 (01:29→21:05)
[2021-08-03 05:56] LABS: Estimated Average Glucose 151 mg/dL; Hemoglobin A1c % 6.9 %
[2021-08-03 06:11] LABS: Anion Gap 9 (12-20); Blood Urea Nitrogen 21 mg/dL (9-16); Calcium 9.2 mg/dL (8.4-10.2); Carbon Dioxide 47 mmol/L (22-29); Chloride 90 mmol/L (96-108); Creatinine Clr Calc Pharmacy 130.7; Estimated Glomerular Filt Rate > 60; Glucose Random 138 mg/dL (60-115); Potassium 4.8 mmol/L (3.3-5.1); Sodium 141 mmol/L (135-145)
[2021-08-03] MEDS: Pantoprazole Sodium 40 MG/10 ML VIAL IVPUSH (06:35)
[2021-08-03 07:19] LABS: Glucose, Whole Blood 129 mg/dL (60-115)
--- NOTE | 2021-08-03 07:36 | P.CDIC_ITS ---
CDI Concurrent Query Documentation Clarification: PHYSICIAN'S DOCUMENTATION REQUEST Date of Query: 08/03/21 0737 Patient Name: Anju Larios Admit Date: 07/30/21 Dear Doctor, A review of the medical record indicates additional documentation may be needed. Please review below and update the documentation accordingly. Clinical Indicators: The diagnosis of [Diagnosis] was documented on [date] but is not consistently noted in subsequent documentation. Risk Factors/Clinical Indicators/Treatments ED 07/30 - concerning for atypical pneumonia. ICU H&P 07/31 - Assessment/plan: Pneumonia, acute CT 07/30 - findings suggestive of inflammatory disease/bronchopneumonia. Levofloxacin, oxygen Please clarify the following: Pneumonia * [Diagnosis] was present on admission and is now resolved * [Diagnosis] was present on admission and is still being monitored, evaluated, or treated * [Diagnosis] was ruled out * [Diagnosis] is still a likely, suspected, probable diagnosis * Other (please specify) * Unable to determine Use of terms such as suspected, likely, concern for, or probable (associated with a specific diagnosis that is being evaluated, monitored, or treated as if it exists) are acceptable and can be coded in the inpatient setting, when documented at the time of discharge. Thank you, Daina Silva [facility], CDIS Extension: [phone] Please use your independent medical judgment in providing your response. THIS QUERY IS PART OF THE PERMANENT MEDICAL RECORD Provider Response: Other Other Diagnosis: possible acute pneumonitis
--- NOTE | 2021-08-03 08:10 | HO.PM.IMPN ---
Subjective Subjective Date of Service: 08/03/21 Interval History: Acute hypoxemic respiratory failure secondary to COPD/viral uri Review of Systems Patient is having progressive shortness of breath-and progressively worsening even with the continuous BiPAP still having short of breath. Has some cough Denies any chest pain or nausea or vomiting or abdominal pain or fever or chills. Physical Exam Vital Signs: Vital Signs: Last Vital Signs Temp 97.8 F 08/03/21 07:10 Pulse 96 08/03/21 07:10 Resp 24 H 08/03/21 07:35 BP 157/83 H 08/03/21 07:10 Pulse Ox 96 08/03/21 07:10 BMI result Body Mass Index 38.1 Appearance: Alert.? Oriented X3.sob with talking cvs: rrr, [id number] res: air entry tight, has b/l rhonchii abd: no rebound or guarding ,nt, bs present. ext pulses present , no cyanosis ,Gait well balanced well coordinated. neuro: axo3 , nonfocal Objective Data Active Medications Acetaminophen (Acetaminophen 325 Mg Tablet) 325 mg PO Q6H PRN PRN Reason: pain or fever Last Admin: 07/31/21 20:16 Dose: 325 mg Documented by: DAVE Albuterol/Ipratropium (Albuterol/Iprat 2.5/0.5mg 3 Ml Ampul.Neb) 3 ml INHALE RQ4H ON LICENSE OF [facility] Last Admin: 08/03/21 07:04 Dose: 3 ml Documented by: SANJAY Albuterol/Ipratropium (Albuterol/Iprat 2.5/0.5mg 3 Ml Ampul.Neb) 3 ml INHALE Q4H PRN PRN Reason: for wheezing Atorvastatin Calcium (Atorvastatin Calcium 20 Mg Tablet) 20 mg PO BEDTIME ON LICENSE OF [facility] Last Admin: 08/02/21 21:04 Dose: 20 mg Documented by: NAYE Dextrose (Dextrose 50 % 25 Gm/50 Ml Syringe) 25 gm IVPUSH Q15M PRN; Protocol PRN Reason: per Hypoglycemia Standing Ord. Dextrose (Dextrose 50 % 25 Gm/50 Ml Syringe) 25 gm IVPUSH Q15M PRN; Protocol PRN Reason: per Hypoglycemia Standing Ord. Diltiazem HCl (Diltiazem Hcl Cd 180 Mg Cap.Er.24h) 360 mg PO DAILY ON LICENSE OF [facility]; Protocol Last Admin: 08/02/21 09:22 Dose: 360 mg Documented by: TREVIN Gabapentin (Gabapentin 100 Mg Capsule) 100 mg PO BID ON LICENSE OF [facility] Last Admin: 08/02/21 21:04 Dose: 100 mg Documented by: NAYE Glucose (Glucose Gel 15 Gm Gel..Gram.) 15 gm PO Q15M PRN; Protocol PRN Reason: per Hypoglycemia Standing Ord. Glucose (Glucose Gel 15 Gm Gel..Gram.) 15 gm PO Q15M PRN; Protocol PRN Reason: per Hypoglycemia Standing Ord. Heparin Sodium (Porcine) (Heparin Sodium,Porcine 5,000 Unit/Ml Vial) 5,000 unit SUBCUT Q8H ON LICENSE OF [facility] Last Admin: 08/03/21 06:36 Dose: 5,000 unit Documented by: THADDEUS Levofloxacin (Levaquin) 750 mg in 150 mls @ 100 mls/hr IV Q24H ON LICENSE OF [facility] Last Infusion: 08/02/21 19:30 Dose: 0 mls/hr Documented by: NAYE Insulin Glargine (Insulin Glargine,Hum.Rec.Anlog 100 Unit/Ml 10 Ml Vial) 45 unit SUBCUT BEDTIME ON LICENSE OF [facility] Last Admin: 08/02/21 21:18 Dose: 45 unit Documented by: NAYE Insulin Human Lispro (Insulin Lispro 100 Unit/Ml 3 Ml Vial) 0 unit SUBCUT QIDACHS ON LICENSE OF [facility]; Protocol Last Admin: 08/02/21 21:14 Dose: 4 unit Documented by: NAYE Levalbuterol HCl (Levalbuterol Hcl 1.25 Mg/0.5 Ml Vial.Neb) 1.25 mg INHALE 8XD PRN PRN Reason: Dyspnea Lidocaine (Lidocaine 4 % Patch Adh..Patch) 1 patch TRANSDERMA DAILY ON LICENSE OF [facility] Last Admin: 08/02/21 09:20 Dose: 1 patch Documented by: TREVIN Lisinopril (Lisinopril 40 Mg Tablet) 40 mg PO DAILY ON LICENSE OF [facility]; Protocol Last Admin: 08/02/21 09:22 Dose: 40 mg Documented by: TREVIN Loratadine (Loratadine 10 Mg Tablet) 10 mg PO DAILY ON LICENSE OF [facility] Last Admin: 08/02/21 09:22 Dose: 10 mg Documented by: TREVIN Methadone HCl (Methadone Hcl 20 Mg/2 Ml Oral.Conc) 50 mg PO DAILY ON LICENSE OF [facility] Last Admin: 08/02/21 09:22 Dose: 50 mg Documented by: TREVIN Methylprednisolone Sodium Succinate (Methylprednisolone Sod Succ 125 Mg/2 Ml Vial) 80 mg IVPUSH Q6H ON LICENSE OF [facility] Last Admin: 08/03/21 01:29 Dose: 80 mg Documented by: THADDEUS Montelukast Sodium (Montelukast Sodium 10 Mg Tablet) 10 mg PO BEDTIME ON LICENSE OF [facility] Last Admin: 08/02/21 21:04 Dose: 10 mg Documented by: NAYE Nicotine (Nicotine 21 Mg Patch.Td24) 21 mg TRANSDERMA DAILY ON LICENSE OF [facility] Last Admin: 08/02/21 09:18 Dose: 21 mg Documented by: TREVIN Non-Formulary Medication (Arformoterol [Brovana]) 2 ml INHALE Q12H ON LICENSE OF [facility] Non-Formulary Medication (Budesonide) 0.5 mg INHALE BID ON LICENSE OF [facility] Non-Formulary Medication (Roflumilast [Daliresp]) 1 tab PO DAILY ON LICENSE OF [facility] Omeprazole (Omeprazole 40 Mg Capsule.Dr) 40 mg PO DAILY@0630 ON LICENSE OF [facility] Last Admin: 08/03/21 06:39 Dose: Not Given Documented by: THADDEUS Non-Admin Reason: Duplicate Order Ondansetron HCl (Ondansetron Hcl 4 Mg/2 Ml Vial) 4 mg IVPUSH Q8H PRN PRN Reason: Nausea Pantoprazole Sodium (Pantoprazole Sodium 40 Mg/10 Ml Vial) 40 mg IVPUSH DAILY@0630 ON LICENSE OF [facility] Last Admin: 08/03/21 06:35 Dose: 40 mg Documented by: THADDEUS Pharmacy Consult (Consult Rx Perform Med Rec) 1 each MISCELLANE ONCE PRN PRN Reason: Consult order Prednisone (Prednisone 5 Mg Tablet) 10 mg PO BEDTIME ON LICENSE OF [facility] Last Admin: 07/31/21 20:16 Dose: 10 mg Documented by: DAVE Senna (Sennosides 8.6 Mg Tablet) 8.6 mg PO BEDTIME PRN PRN Reason: constipation Labs CBC & Chem 7: 07/31/21 05:19 08/03/21 05:24 Labs: Laboratory Results - last 24 hr 07/31/21 07/31/21 08/02/21 10:13 10:13 09:57 VBG pH 7.50 H VBG pCO2 62 VBG pO2 86 VBG HCO3 49 H VBG O2 Saturation 96.0 VBG Base Excess 22.1 Anion Gap Estim Creat Clear Calc Estimated GFR POC Glucose Random Glucose Estimat Average Glucose Hemoglobin A1c % Calcium CAROLYNE Screen POSITIVE A CAROLYNE Titer 1:40 H CAROLYNE Pattern Nuclear, Speckled A Proteinase 3 (PR3) Ab <1.0 Myeloperoxidase Ab <1.0 08/02/21 08/02/21 08/02/21 11:31 16:25 20:04 VBG pH VBG pCO2 VBG pO2 VBG HCO3 VBG O2 Saturation VBG Base Excess Anion Gap Estim Creat Clear Calc Estimated GFR POC Glucose 241 H 215 H 240 H Random Glucose Estimat Average Glucose Hemoglobin A1c % Calcium CAROLYNE Screen CAROLYNE Titer CAROLYNE Pattern Proteinase 3 (PR3) Ab Myeloperoxidase Ab 08/03/21 08/03/21 08/03/21 05:24 05:24 07:16 VBG pH VBG pCO2 VBG pO2 VBG HCO3 VBG O2 Saturation VBG Base Excess Anion Gap 9 L Estim Creat Clear Calc 130.7 Estimated GFR > 60 POC Glucose 129 H Random Glucose 138 H Estimat Average Glucose 151 Hemoglobin A1c % 6.9 Calcium 9.2 CAROLYNE Screen CAROLYNE Titer CAROLYNE Pattern Proteinase 3 (PR3) Ab Myeloperoxidase Ab Assessment and Plan (1) Viral syndrome: Status: Acute (2) Acute and chronic respiratory failure: Status: Acute (3) Pneumonitis: Status: Acute Plan 51-year-old lady with underlying morbid obesity, asthma/ COPD overlap syndrome, obesity hypoventilation, on 2 L of supplemental oxygen, nocturnal BiPAP hypogammaglobulinemia on IVIG, opioid dependence on methadone, diabetes mellitus, hypertension, admitted on 06/06/2021 with dyspnea and hypoxia requiring BiPAP support.? Acute on chronic hypoxic hypercapnic respiratory failure secondary to COPD exacerbation, CO2 retention, viral URI(human metapneumovirus) Responded well to BiPAP treatment in ICU(transferred from icu yesterday) abnormal CT Continue steroids and oxygen supplement BiPAP at bedtime Sandra maki noted-continue nebs, steroid adjusted, IV antibiotics. Patient VBG and chest x-ray noted -CO2 flowers worsening also shortness of breath worsening as well as worsening pneumonia on the chest x-ray. Added vanco in addition to Levaquin, also given nebs, magnesium, morphine but patient states keep having short of breath: Discussed with pulmonary and ICU patient will benefit from ICU level of care. Patient being transferred to ICU. Traction alkalosis Secondary to hypoxic hypercapnic respiratory failure Follow BMP DM:?( previous admission in may-was on metformin/sliding scale) Fingersticks are running from 150-200 range Monitor fingersticks with sliding scale coverage. Hba1c levels ?Opioid dependence continue methadone Hypertension next Lyme continue Cardizem, lisinopril Controlled. Morbid obesity: Encouraged to cut down calories, consider outpatient bariatric evaluation. DVT PPX Lovenox Need for inpatient: Worsening on chronic hypoxic hypercapnic respiratory failure secondary to COPD exacerbation, CO2 retention, viral URI, need ICU level of care. Above was discussed with ICU attending in detail. Quality Stroke Does the patient have a stroke diagnosis?: No VTE Prior VTE?: No VTE Risk Level:: Medical - moderate - high VTE Device Contraindication: N/A - Device Ordered VTE Drug Contraindication: N/A - Med Ordered
[2021-08-03] MEDS: methADONE HCl 20 MG/2 ML ORAL.CONC 50 MG PO (08:31)
[2021-08-03] MEDS: Nicotine 21 MG PATCH.TD24 TRANSDERMA (08:34)
[2021-08-03] MEDS: Gabapentin 100 MG CAPSULE PO ×2 (08:35→21:58)
[2021-08-03] MEDS: lisinopriL 40 MG TABLET PO (08:35)
[2021-08-03] MEDS: dilTIAZem HCL CD 180 MG CAP.ER.24H 360 MG PO (08:35)
[2021-08-03] MEDS: Loratadine 10 MG TABLET PO (08:35)
[2021-08-03 09:28] LABS: VBG Base Excess 27.5 mmol/L; VBG HCO3 58 mmol/L (22-26); VBG pCO2 90 mmHg; VBG pH 7.42 (7.32-7.43); VBG pO2 49 mmHg
[2021-08-03] MEDS: Lidocaine 4 % Patch ADH..PATCH 1 PATCH TRANSDERMA (10:03)
[2021-08-03] MEDS: Morphine Sulfate 2 MG/ML CARTRIDGE 1 MG IVPUSH ×2 (10:04→17:00)
[2021-08-03] MEDS: acetaZOLAMIDE 250 MG TABLET PO (10:04)
[2021-08-03 10:27] LABS: Venous Blood Gas Refer to POC result
[2021-08-03] MEDS: Magnesium Sulfate/D5W 1 GM/100 ML PIGGYBACK IV (11:40)
[2021-08-03 11:41] LABS: Glucose, Whole Blood 239 mg/dL (60-115)
[2021-08-03] MEDS: Insulin Lispro 100 UNIT/ML 3 ML VIAL SUBCUT ×3 (11:49→21:47)
--- NOTE | 2021-08-03 12:52 | PM.PNPUL ---
Subjective Subjective Date of Service: 08/03/21 Interval history: The patient was seen on exam. She was placed on high-flow after coming off the BiPAP. This is helping her maintain some degree of PEEP. She did tolerate the transition well. Still having hard time breathing but little better compared to yesterday. Her blood work demonstrates an elevation in her bicarb to 47. She continues on the high-dose Solu-Medrol. She did receive an additional 125 mg yesterday. Objective Data Labs CBC & Chem 7: 07/31/21 05:19 08/03/21 05:24 Labs: Laboratory Results - last 24 hr 07/31/21 07/31/21 08/02/21 10:13 10:13 16:25 VBG pH VBG pCO2 VBG pO2 VBG HCO3 VBG O2 Saturation VBG Base Excess Sodium Potassium Chloride Carbon Dioxide Anion Gap BUN Creatinine Estim Creat Clear Calc Estimated GFR POC Glucose 215 H Random Glucose Estimat Average Glucose Hemoglobin A1c % Calcium CAROLYNE Screen POSITIVE A CAROLYNE Titer 1:40 H CAROLYNE Pattern Nuclear, Speckled A Proteinase 3 (PR3) Ab <1.0 Myeloperoxidase Ab <1.0 08/02/21 08/03/21 08/03/21 20:04 05:24 05:24 VBG pH VBG pCO2 VBG pO2 VBG HCO3 VBG O2 Saturation VBG Base Excess Sodium 141 Potassium 4.8 Chloride 90 L Carbon Dioxide 47 H* Anion Gap 9 L BUN 21 H Creatinine 0.52 Estim Creat Clear Calc 130.7 Estimated GFR > 60 POC Glucose 240 H Random Glucose 138 H Estimat Average Glucose 151 Hemoglobin A1c % 6.9 Calcium 9.2 CAROLYNE Screen CAROLYNE Titer CAROLYNE Pattern Proteinase 3 (PR3) Ab Myeloperoxidase Ab 08/03/21 08/03/21 08/03/21 07:16 09:17 11:31 VBG pH 7.42 VBG pCO2 90 VBG pO2 49 VBG HCO3 58 H VBG O2 Saturation 77.0 VBG Base Excess 27.5 Sodium Potassium Chloride Carbon Dioxide Anion Gap BUN Creatinine Estim Creat Clear Calc Estimated GFR POC Glucose 129 H 239 H Random Glucose Estimat Average Glucose Hemoglobin A1c % Calcium CAROLYNE Screen CAROLYNE Titer CAROLYNE Pattern Proteinase 3 (PR3) Ab Myeloperoxidase Ab Microbiology Microbiology Results: Microbiology 07/30/21 09:37 Blood - Venous Blood Culture - Preliminary No growth after 48 hours. 07/30/21 09:37 Blood - Venous Blood Culture - Preliminary No growth after 48 hours. Review of Systems Review of Systems Constitutional : No Fever, No Chills +distress ENT/Mouth : No Hoarseness, No sore throat, No Rhinorrhea Eyes: No Redness, No Discharge, No Vision Changes Cardiovascular : pos Chest Pain, positive SOB, positive Dyspnea on Exertion, No Edema Respiratory : positive Cough, pos Sputum, positive Wheezing, Gastrointestinal : No Nausea, No Vomiting, No Diarrhea, No abdominal Pain Genitourinary : No Dysuria, No Hematuria Musculoskeletal : No joint pain, No Myalgias Skin : No rash Neuro : No Weakness, No Numbness, No Headache Psych : No anxiety, depression Heme/Lymph: No Bruising, No Bleeding Endocrine : No Polyuria, No Polydipsia All other systems reviewed and are negative Physical Exam Vital Signs: Vital Signs: Last Vital Signs Temp 99.0 F 08/03/21 11:33 Pulse 105 H 08/03/21 11:33 Resp 24 H 08/03/21 11:33 BP 136/82 08/03/21 11:33 Pulse Ox 91 L 08/03/21 11:33 BMI result Body Mass Index 38.1 Const: General: alert and in distress mild and respiratory Neck: Neck: Yes normal visual inspection, Yes full ROM and Yes no lymphadenopathy Chest: Chest palpation & inspection: normal inspection of the chest Resp: Effort & Inspection: tachypneic, uses accessory muscles and prolonged expiratory phase Auscultation: wheezes and diminished lung sounds Cardio: Rate: regular rate Rhythm: regular rhythm Heart sounds: S1 normal heart sound present and S2 normal heart sound present GI: Palpation (GI): Soft to palpation and nontender Auscultation: normal bowel sounds Skin: General skin exam: rashes and/or lesions noted Procedures Date of Service Date of Service: 08/03/21 Assessment and Plan Assessment and plan (1) Acute and chronic respiratory failure: Status: Acute (2) Viral syndrome: Status: Acute (3) Pneumonitis: Status: Acute (4) Status asthmaticus with COPD (chronic obstructive pulmonary disease): Status: Acute (5) Pneumonia: Status: Acute Plan Continue Solu-Medrol 80 mg q.6 Nebulized therapy every 2 hours Will request theophylline level check Continue BiPAP at night and alternating with high-flow during the day Diamox daily until bicarbonate is 40 less Continue antibiotic therapy for postviral bacterial infection Cardiac condition. If her condition worsens she will need ICU level of care Time Spent With Patient Time: Total time spent is greater than 50% in coordination of care (as documented) at patient's floor/unit and/or counseling patient: Progress Note: Quality Stroke Does the patient have a stroke diagnosis?: No
[2021-08-03] MEDS: levoFLOXacin/D5W 750 MG/150 ML PIGGYBACK 100 MG IV (14:50)
--- NOTE | 2021-08-03 14:51 | MHC.CM.PN ---
Female 51 DX Acute/Chronic Hypoxic respiratory failure No discharge today. DP is home with resumption of [facility]. She will arrange for transport at discharge.
[2021-08-03 16:48] LABS: Glucose, Whole Blood 261 mg/dL (60-115)
--- NOTE | 2021-08-03 17:38 | HE.PHANOTE ---
Vanco 2 gm load , 1250 q12h. Predicted auc 410 trough 12.1 by third dose
[2021-08-03 17:40] LABS: Venous Blood Gas Refer to POC result
[2021-08-03 17:41] LABS: VBG Base Excess 15.7 mmol/L; VBG HCO3 39 mmol/L (22-26); VBG pCO2 44 mmHg; VBG pH 7.55 (7.32-7.43); VBG pO2 212 mmHg
--- NOTE | 2021-08-03 18:12 | P.CONCC_ITS ---
History of Present Illness Data of Consult Service Date: 08/03/21 Requesting physician: Marielos Guillermo Primary Care Provider: Kelli Benavides MD HPI Reason for consult: Increasing dyspnea with progressive increase in pCO2 51-year-old morbidly obese type 2 diabetic presenting with acute on chronic hypoxic and hypercarbic respiratory failure but this time having evidence of bilateral nodular ground-glass infiltrates predominantly apices and upper lobes but some involvement clearly of of middle and lower lobes as well in and although sed rate was not elevated we do have positive CAROLYNE and only 1-40 so just detectable with a speckled pattern so it is not impossible that we could have a forme fruste of of the Sjogren's or scleroderma the in a kind of an issue but she was positive for metapneumovirus and of course the atypical appearance of her CT scan easily could reflect that and she has not responded to 4 days of IV Levaquin and to high-dose steroids as well as high-dose nebulized albuterol inhalers so in light of trying to do something different and not having to progressed intubation we brought her down to the intensive care unit where I started her on a modest loading dose of IV aminophylline and then a continuous IV drip of aminophylline and that seems to have led to a diminished work of breathing and her pCO2 has now come down to 58 with a perfectly compensated pH and we are 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 to the 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 care unit and I would look to discontinue the IV aminophylline after 24 hours in no tapering as necessary but I would recommend getting a dry CT scan of her chest just to see by comparison to the original but the progress of the infiltrates has been because the chest x-ray is implying that they could have gotten progressively worse Review of Systems Review of Systems: No other complaints of chest discomfort no nausea no vomiti ng no epigastric discomfort no back pain and no pleuritic pain PMFSH Past Medical History Medical History (Updated 08/02/21 @ 17:06 by Allan Brito MD) Abdominal pain Asthma-COPD overlap syndrome Chronic respiratory failure Chronic respiratory failure Congestive heart failure COPD (chronic obstructive pulmonary disease) Diabetes mellitus Essential hypertension Hyperlipidemia, unspecified Hypertensive cardiovascular disease Hypogammaglobulinemia Limb swelling Opioid dependence Poor dentition Pulmonary nodule Rib fractures Status asthmaticus with COPD (chronic obstructive pulmonary disease) Tobacco abuse Type 2 diabetes mellitus Type 2 diabetes mellitus with unspecified complications Family History Family History Father Diabetes Other Asthma Surgical History Surgical History H/O tubal ligation Social History Social History Household Members: Children Household Members Other:: 3 Housing: Apartment Do you presently have visiting nurse or other home services: No Unable to assess alcohol history related to: Unknown Alcohol intake: unknown Patient Tobacco Use Status: Current someday Tobacco user Tobacco use type: Cigarette Cigarettes Per Day: 1 Years Smoked: 35 e-Cigarette/Vaping Use: Currently Using Second Hand Smoke Exposure: No Substance Use Type: Opiates Advance Directives Date on File: 06/12/21 service: No Current occupational status: unemployed and disabled Meds Allergies Allergy/AdvReac Type Severity Reaction Status Date / Time No Known Allergies Allergy Verified 07/24/21 11:20 [No Known Allergies*] Active Medications: Current Medications Acetaminophen (Acetaminophen 325 Mg Tablet) 325 mg PO Q6H PRN PRN Reason: pain or fever Last Admin: 07/31/21 20:16 Dose: 325 mg Documented by: Albuterol/Ipratropium (Albuterol/Iprat 2.5/0.5mg 3 Ml Ampul.Neb) 3 ml INHALE RQ4H ANA Last Admin: 08/03/21 15:28 Dose: 3 ml Documented by: Albuterol/Ipratropium (Albuterol/Iprat 2.5/0.5mg 3 Ml Ampul.Neb) 3 ml INHALE Q4H PRN PRN Reason: for wheezing Last Admin: 08/03/21 11:33 Dose: 3 ml Documented by: Atorvastatin Calcium (Atorvastatin Calcium 20 Mg Tablet) 20 mg PO BEDTIME ANA Last Admin: 08/02/21 21:04 Dose: 20 mg Documented by: Dextrose (Dextrose 50 % 25 Gm/50 Ml Syringe) 25 gm IVPUSH Q15M PRN; Protocol PRN Reason: per Hypoglycemia Standing Ord. Dextrose (Dextrose 50 % 25 Gm/50 Ml Syringe) 25 gm IVPUSH Q15M PRN; Protocol PRN Reason: per Hypoglycemia Standing Ord. Diltiazem HCl (Diltiazem Hcl Cd 180 Mg Cap.Er.24h) 360 mg PO DAILY [facility]; Protocol Last Admin: 08/03/21 08:35 Dose: 360 mg Documented by: Gabapentin (Gabapentin 100 Mg Capsule) 100 mg PO BID [facility] Last Admin: 08/03/21 08:35 Dose: 100 mg Documented by: Glucose (Glucose Gel 15 Gm Gel..Gram.) 15 gm PO Q15M PRN; Protocol PRN Reason: per Hypoglycemia Standing Ord. Glucose (Glucose Gel 15 Gm Gel..Gram.) 15 gm PO Q15M PRN; Protocol PRN Reason: per Hypoglycemia Standing Ord. Heparin Sodium (Porcine) (Heparin Sodium,Porcine 5,000 Unit/Ml Vial) 5,000 unit SUBCUT Q8H [facility] Last Admin: 08/03/21 14:54 Dose: 5,000 unit Documented by: Doxycycline Hyclate 100 mg/ (Sodium Chloride) 250 mls @ 166.67 mls/hr IV Q12H [facility] Voriconazole 300 mg/ Sodium (Chloride) 100 mls @ 50 mls/hr IV ONCE ONE Stop: 08/03/21 21:59 Insulin Glargine (Insulin Glargine,Hum.Rec.Anlog 100 Unit/Ml 10 Ml Vial) 45 unit SUBCUT BEDTIME [facility] Last Admin: 08/02/21 21:18 Dose: 45 unit Documented by: Insulin Human Lispro (Insulin Lispro 100 Unit/Ml 3 Ml Vial) 0 unit SUBCUT QIDACHS [facility]; Protocol Last Admin: 08/03/21 17:01 Dose: 6 unit Documented by: Levalbuterol HCl (Levalbuterol Hcl 1.25 Mg/0.5 Ml Vial.Neb) 1.25 mg INHALE 8XD PRN PRN Reason: Dyspnea Lidocaine (Lidocaine 4 % Patch Adh..Patch) 1 patch TRANSDERMA DAILY [facility] Last Admin: 08/03/21 10:03 Dose: 1 patch Documented by: Lisinopril (Lisinopril 40 Mg Tablet) 40 mg PO DAILY [facility]; Protocol Last Admin: 08/03/21 08:35 Dose: 40 mg Documented by: Loratadine (Loratadine 10 Mg Tablet) 10 mg PO DAILY [facility] Last Admin: 08/03/21 08:35 Dose: 10 mg Documented by: Methadone HCl (Methadone Hcl 20 Mg/2 Ml Oral.Conc) 50 mg PO DAILY [facility] Last Admin: 08/03/21 08:31 Dose: 50 mg Documented by: Methylprednisolone Sodium Succinate (Methylprednisolone Sod Succ 125 Mg/2 Ml Vial) 80 mg IVPUSH Q6H [facility] Last Admin: 08/03/21 14:52 Dose: 80 mg Documented by: Montelukast Sodium (Montelukast Sodium 10 Mg Tablet) 10 mg PO BEDTIME [facility] Last Admin: 08/02/21 21:04 Dose: 10 mg Documented by: Nicotine (Nicotine 21 Mg Patch.Td24) 21 mg TRANSDERMA DAILY [facility] Last Admin: 08/03/21 08:34 Dose: 21 mg Documented by: Non-Formulary Medication (Arformoterol [Brovana]) 2 ml INHALE Q12H [facility] Non-Formulary Medication (Budesonide) 0.5 mg INHALE BID [facility] Omeprazole (Omeprazole 40 Mg Capsule.Dr) 40 mg PO DAILY@06 [facility] Last Admin: 08/03/21 06:39 Dose: Not Given Documented by: Ondansetron HCl (Ondansetron Hcl 4 Mg/2 Ml Vial) 4 mg IVPUSH Q8H PRN PRN Reason: Nausea Pantoprazole Sodium (Pantoprazole Sodium 40 Mg/10 Ml Vial) 40 mg IVPUSH DAILY@0630 [facility] Last Admin: 08/03/21 06:35 Dose: 40 mg Documented by: Pharmacy Consult (Consult Rx Perform Med Rec) 1 each MISCELLANE ONCE PRN PRN Reason: Consult order Pharmacy Consult (Consult Rx Vancomycin Dosing) 1 each MISCELLANE DAILY PRN PRN Reason: Consult order Senna (Sennosides 8.6 Mg Tablet) 8.6 mg PO BEDTIME PRN PRN Reason: constipation Home Medications Medication Instructions Recorded Confirmed Last Taken Type albuterol sulfate 90 mcg/actuation 2 puff INHALATION Q4H PRN 12/30/19 07/30/21 02/21/21 History aerosol inhaler (ProAir HFA) loratadine 10 mg tablet (Claritin) 10 mg PO DAILY 12/30/19 07/30/21 02/21/21 History montelukast 10 mg tablet 10 mg PO BEDTIME 12/30/19 07/30/21 02/20/21 History gabapentin 100 mg capsule 1 cap PO BID 10/14/20 07/30/21 02/21/21 History diltiazem HCl 360 mg capsule,24 1 cap PO DAILY 11/16/20 07/30/21 02/21/21 History hr,extended release (Tiadylt ER) roflumilast 500 mcg tablet 1 tab PO DAILY 11/16/20 07/30/21 02/21/21 History (Daliresp) rosuvastatin 5 mg tablet 1 tab PO BEDTIME 11/16/20 07/30/21 02/20/21 History insulin lispro 100 unit/mL See Protocol SUBCUT TIDAC 12/14/20 07/30/21 02/21/21 History subcutaneous solution (Humalog U-100 Insulin) lidocaine 5 % topical patch 1 patch TOPICAL DAILY 12/14/20 07/30/21 02/21/21 History metformin 500 mg tablet,extended 2 tab PO BID 05/18/21 07/30/21 Unknown History release 24 hr prednisone 10 mg tablet 20 mg PO DAILY 05/18/21 07/30/21 Unknown History theophylline 400 mg 800 mg PO DAILY 05/18/21 07/30/21 Unknown History capsule,extended release 24 hr (Arnoldo-24) ergocalciferol (vitamin D2) 1,250 1,250 mcg PO QWEEK 06/06/21 07/30/21 Unknown History mcg (50,000 unit) capsule methadone 10 mg/mL oral concentrate 49 mg PO DAILY 06/06/21 07/31/21 07/30/21 History insulin glargine 100 unit/mL 45 unit SUBCUT BEDTIME 06/07/21 07/30/21 Unknown History subcutaneous solution (Lantus U-100 Insulin) lisinopril 40 mg tablet 1 tab PO DAILY 07/30/21 07/30/21 Unknown History prednisone 5 mg tablet 10 mg PO BEDTIME 07/30/21 07/30/21 Unknown History sodium chloride 7 % for 4 ml INHALATION BID 07/30/21 07/30/21 Unknown History nebulization Physical Exam Vital Signs: Vital Signs: Last Vital Signs Temp 97.7 F 08/03/21 16:00 Pulse 108 H 08/03/21 16:00 Resp 14 08/03/21 16:19 BP 131/83 08/03/21 16:00 Pulse Ox 109 H 08/03/21 16:00 BMI result Body Mass Index 38.1 No acute distress at this point clearly not making use of accessory muscles nor diaphragmatic effort it despite incessantly talking and and arguing on the other end of the telephone that never leaves her hand Neurologically intact oriented Cardiovascular by echo with normal LV function and no primary valve or pericardial disease Diminished breath sounds bilaterally no adventitious sounds Abdomen benign soft no tenderness no organomegaly Results Labs CBC & Chem 7: 08/04/21 05:28 08/04/21 05:28 Labs: BMP 08/03/21 05:24 Sodium 141 Potassium 4.8 Chloride 90 L Carbon Dioxide 47 H* BUN 21 H Creatinine 0.52 Calcium 9.2 Microbiology Microbiology Results: Microbiology 07/30/21 09:37 Blood - Venous Blood Culture - Preliminary No growth after 48 hours. 07/30/21 09:37 Blood - Venous Blood Culture - Preliminary No growth after 48 hours. Assessment and Plan (1) Viral syndrome: Status: Acute (2) Acute and chronic respiratory failure: Status: Acute (3) Pneumonitis: Status: Acute (4) Status asthmaticus with COPD (chronic obstructive pulmonary disease): Status: Acute (5) Hypertensive cardiovascular disease: Status: Acute (6) Type 2 diabetes mellitus: Status: Acute (7) Morbid obesity: Status: Acute (8) Acute on chronic respiratory failure with hypoxia and hypercapnia: Status: Acute (9) COPD exacerbation: Status: Acute (10) Pneumonia: Qualifiers: Laterality: bilateral Lung location: unspecified part of lung Pneumonia type: due to unspecified organism Qualified Code(s): J18.9 - Pneumonia, unspecified organism Status: Acute (11) Respiratory failure: Qualifiers: Chronicity: acute Respiratory failure complication: hypoxia and hypercapnia Qualified Code(s): J96.01 - Acute respiratory failure with hypoxia; J96.02 - Acute respiratory failure with hypercapnia Status: Acute (12) Rib fractures: Status: Acute (13) Pulmonary nodule: Status: Acute (14) Abnormal chest x-ray: Status: Acute (15) Chest pain: Status: Acute (16) Pneumonia: Qualifiers: Laterality: bilateral Status: Acute (17) Respiratory failure: Qualifiers: Chronicity: acute Respiratory failure complication: hypoxia and hyper capnia Qualified Code(s): J96.01 - Acute respiratory failure with hypoxia; J96.02 - Acute respiratory failure with hypercapnia Status: Acute (18) Limb swelling: Status: Acute (19) Abdominal pain: Status: Acute (20) Poor dentition: Status: Acute (21) Precordial chest pain: Status: Acute (22) SOB (shortness of breath): Status: Acute (23) Preoperative cardiovascular examination: Status: Acute (24) Tachycardia: Status: Acute Plan The plan is to complete as close to 24 hours as possible the IV aminophylline drip then discontinue it be up to the new attending as to whether not we would then start her on and and oral theophylline and continue to support oxygenation as well as work of breathing with as much BiPAP as is necessary until there is resolution of this atypical or viral pneumonitis but there is still a question that there could be an underlying collagen vascular issue and there are further studies and in terms of blood work that her out there pending and pulmonary would have to make a decision as to whether not to at some point and things are more comfortable doing a elective bronchoscopy for a BAL specimen and in addition I had given her 1 dose of voriconazole because as as an obese diabetic on high-dose steroids and broad-spectrum antibiotics for a prolonged amount of time I questioned whether not it in 0 she could either have a and he hypersensitivity pneumonitis related to colonization from either a a Edith species are Aspergillus or even potentially an early invasive issue but this laboratory has no capability for galactomannan or beta D glucan so it would rely on bronchoscopy so the question is in a do we continue and empiric the Echinocandin a or a con azole
[2021-08-03 20:46] LABS: VBG Base Excess 18.2 mmol/L; VBG HCO3 48 mmol/L (22-26); VBG pCO2 78 mmHg; VBG pH 7.39 (7.32-7.43); VBG pO2 52 mmHg
[2021-08-03 20:54] LABS: Glucose, Whole Blood 223 mg/dL (60-115)
[2021-08-03] MEDS: Insulin Glargine,Hum.rec.anlog 100 UNIT/ML 10 ML VIAL 45 UNIT SUBCUT (21:47)
[2021-08-03] MEDS: Montelukast Sodium 10 MG TABLET PO (21:58)
[2021-08-03] MEDS: Atorvastatin Calcium 20 MG TABLET PO (21:58)
[2021-08-03] MEDS: Doxycycline Hyclate 100 MG in 0.9 % Sodium Chloride 250 ML 166.67 MG IV (22:47)
[2021-08-03 23:08] LABS: Venous Blood Gas Refer to POC result
[2021-08-04] VITALS (23 sets, daily range): BP systolic 118–144; BP diastolic 40–83; PULSE 77–113; RESP 13–26; TEMP 36.3–37.4; O2SAT 92–99; BMI 36.9
[2021-08-04] MEDS: Albuterol/Iprat 2.5/0.5MG 3 ML AMPUL.NEB INHALE ×7 (00:43→23:16)
[2021-08-04 01:03] LABS: Anion Gap 15 (12-20); Blood Urea Nitrogen 21 mg/dL (9-16); Calcium 9.2 mg/dL (8.4-10.2); Carbon Dioxide 37 mmol/L (22-29); Chloride 93 mmol/L (96-108); Creatinine Clr Calc Pharmacy 116.2; Estimated Glomerular Filt Rate > 60; Glucose Random 195 mg/dL (60-115); Potassium 4.2 mmol/L (3.3-5.1); Sodium 141 mmol/L (135-145)
[2021-08-04 01:09] LABS: VBG Base Excess 22.8 mmol/L; VBG HCO3 52 mmol/L (22-26); VBG pCO2 78 mmHg; VBG pH 7.43 (7.32-7.43); VBG pO2 63 mmHg
[2021-08-04 01:46] LABS: Venous Blood Gas Refer to POC result
[2021-08-04] MEDS: methylPREDNISolone Sod Succ 125 MG/2 ML VIAL 80 MG IVPUSH ×4 (01:55→20:45)
[2021-08-04 05:50] LABS: VBG Base Excess 15.3 mmol/L; VBG HCO3 41 mmol/L (22-26); VBG pCO2 55 mmHg; VBG pH 7.48 (7.32-7.43); VBG pO2 64 mmHg
[2021-08-04 06:02] LABS: Basophils Percent Auto 0.1 % (0-2); Hematocrit 40.5 % (37.0-47.0); Hemoglobin 12.6 g/dl (12.0-16.0); Imm Gran Abs Auto 0.09 X10*3/uL (0.00-0.03); Imm Gran Pct Auto 0.6 % (0.0-0.4); Lymphocytes Absolute Auto 0.2 X10*3/uL (1.2-4.9); Lymphocytes Percent Auto 1.7 % (20-40); MANUAL DIFF FLAG SCAN; Mean Corpuscular HGB Conc 31.1 g/dl (31.0-35.0); Mean Corpuscular Hemoglobin 29.9 pg (27.0-33.0); Mean Platelet Volume 9.7 fL (9.4-12.3); Monocytes Absolute Auto 0.4 X10*3/uL (0.1-1.2); Monocytes Percent Auto 2.7 % (2-11); Neutrophils Absolute Auto 13.2 x10*3/uL (2.0-8.3); Neutrophils Percent Auto 94.9 % (45-73); Platelet Count 258 X10*3/uL (160-400); Red Blood Count 4.22 X10*6/uL (4.20-5.50); Red Cell Distribution Width 13.6 % (11.0-16.0); SCAN SMEAR FLAG 1; SLIDE REVIEW VERIFIED; White Blood Count 13.9 X10*3/uL (4.8-10.8)
[2021-08-04 06:27] LABS: Anion Gap 12 (12-20); Blood Urea Nitrogen 19 mg/dL (9-16); Calcium 9.1 mg/dL (8.4-10.2); Carbon Dioxide 38 mmol/L (22-29); Chloride 94 mmol/L (96-108); Creatinine Clr Calc Pharmacy 120.4; Estimated Glomerular Filt Rate > 60; Glucose Random 190 mg/dL (60-115); Magnesium 2.1 mg/dL (1.6-2.6); Phosphorus 2.4 mg/dL (2.7-4.5); Potassium 4.2 mmol/L (3.3-5.1); Sodium 140 mmol/L (135-145)
[2021-08-04] MEDS: methADONE HCl 20 MG/2 ML ORAL.CONC 50 MG PO (08:04)
[2021-08-04] MEDS: Heparin Sodium,Porcine 5,000 UNIT/ML VIAL 5000 UNIT SUBCUT ×3 (08:04→22:51)
[2021-08-04] MEDS: Pantoprazole Sodium 40 MG/10 ML VIAL IVPUSH (08:04)
[2021-08-04] MEDS: Gabapentin 100 MG CAPSULE PO ×2 (08:05→20:45)
[2021-08-04] MEDS: dilTIAZem HCL CD 180 MG CAP.ER.24H 360 MG PO (08:05)
[2021-08-04] MEDS: lisinopriL 40 MG TABLET PO (08:05)
[2021-08-04] MEDS: Lidocaine 4 % Patch ADH..PATCH 1 PATCH TRANSDERMA (08:05)
[2021-08-04] MEDS: Loratadine 10 MG TABLET PO (08:05)
[2021-08-04] MEDS: Nicotine 21 MG PATCH.TD24 TRANSDERMA (08:05)
[2021-08-04 08:19] LABS: Glucose, Whole Blood 190 mg/dL (60-115)
--- NOTE | 2021-08-04 08:28 | P.PNIM_ITS ---
Subjective Subjective Date of Service: 08/04/21 Interval History: Acute hypoxemic/hypercarbic respiratory failure secondary to COPD Review of Systems Short of breath seems to be slightly better than yesterday, sit still anxious, Has dry cough otherwise denies any chest pain on nausea or vomiting or abdominal pain. Physical Exam Vital Signs: Vital Signs: Last Vital Signs Temp 97.4 F 08/04/21 08:00 Pulse 100 08/04/21 08:00 Resp 20 08/04/21 08:00 BP 140/75 H 08/04/21 08:00 Pulse Ox 96 08/04/21 08:00 Oxygen Flow Rate 35 08/03/21 20:00 BMI result Body Mass Index 36.9 Appearance: Alert.? Oriented X3.sob with talking cvs: rrr, [id number] res: air entry tight, has b/l rhonchii abd: no rebound or guarding ,nt, bs present. ext pulses present , no cyanosis ,Gait well balanced well coordinated. neuro: axo3 , nonfocal Objective Data Active Medications Acetaminophen (Acetaminophen 325 Mg Tablet) 325 mg PO Q6H PRN PRN Reason: pain or fever Last Admin: 07/31/21 20:16 Dose: 325 mg Documented by: DAVE Albuterol/Ipratropium (Albuterol/Iprat 2.5/0.5mg 3 Ml Ampul.Neb) 3 ml INHALE RQ4H [facility] Last Admin: 08/04/21 07:15 Dose: 3 ml Documented by: RAHEL Albuterol/Ipratropium (Albuterol/Iprat 2.5/0.5mg 3 Ml Ampul.Neb) 3 ml INHALE Q4H PRN PRN Reason: for wheezing Last Admin: 08/03/21 11:33 Dose: 3 ml Documented by: SANJAY Atorvastatin Calcium (Atorvastatin Calcium 20 Mg Tablet) 20 mg PO BEDTIME [facility] Last Admin: 08/03/21 21:58 Dose: 20 mg Documented by: NAYE Dextrose (Dextrose 50 % 25 Gm/50 Ml Syringe) 25 gm IVPUSH Q15M PRN; Protocol PRN Reason: per Hypoglycemia Standing Ord. Dextrose (Dextrose 50 % 25 Gm/50 Ml Syringe) 25 gm IVPUSH Q15M PRN; Protocol PRN Reason: per Hypoglycemia Standing Ord. Diltiazem HCl (Diltiazem Hcl Cd 180 Mg Cap.Er.24h) 360 mg PO DAILY [facility]; Protocol Last Admin: 08/04/21 08:05 Dose: 360 mg Documented by: TREVIN Gabapentin (Gabapentin 100 Mg Capsule) 100 mg PO BID [facility] Last Admin: 08/04/21 08:05 Dose: 100 mg Documented by: TREVIN Glucose (Glucose Gel 15 Gm Gel..Gram.) 15 gm PO Q15M PRN; Protocol PRN Reason: per Hypoglycemia Standing Ord. Glucose (Glucose Gel 15 Gm Gel..Gram.) 15 gm PO Q15M PRN; Protocol PRN Reason: per Hypoglycemia Standing Ord. Heparin Sodium (Porcine) (Heparin Sodium,Porcine 5,000 Unit/Ml Vial) 5,000 unit SUBCUT Q8H [facility] Last Admin: 08/04/21 08:04 Dose: 5,000 unit Documented by: TREVIN Aminophylline 500 mg/ Sodium (Chloride) 270 mls @ 11.25 mls/hr IV .Q24H [facility] Stop: 08/04/21 19:59 Last Admin: 08/03/21 21:17 Dose: 11.25 mls/hr Documented by: NAYE Doxycycline Hyclate 100 mg/ (Sodium Chloride) 250 mls @ 166.67 mls/hr IV Q12H [facility] Insulin Glargine (Insulin Glargine,Hum.Rec.Anlog 100 Unit/Ml 10 Ml Vial) 45 unit SUBCUT BEDTIME [facility] Last Admin: 08/03/21 21:47 Dose: 45 unit Documented by: NAYE Insulin Human Lispro (Insulin Lispro 100 Unit/Ml 3 Ml Vial) 0 unit SUBCUT QIDACHS [facility]; Protocol Last Admin: 08/03/21 21:47 Dose: 4 unit Documented by: NAYE Levalbuterol HCl (Levalbuterol Hcl 1.25 Mg/0.5 Ml Vial.Neb) 1.25 mg INHALE 8XD PRN PRN Reason: Dyspnea Lidocaine (Lidocaine 4 % Patch Adh..Patch) 1 patch TRANSDERMA DAILY [facility] Last Admin: 08/04/21 08:05 Dose: 1 patch Documented by: TREVIN Lisinopril (Lisinopril 40 Mg Tablet) 40 mg PO DAILY [facility]; Protocol Last Admin: 08/04/21 08:05 Dose: 40 mg Documented by: TREVIN Loratadine (Loratadine 10 Mg Tablet) 10 mg PO DAILY [facility] Last Admin: 08/04/21 08:05 Dose: 10 mg Documented by: TREVIN Methadone HCl (Methadone Hcl 20 Mg/2 Ml Oral.Conc) 50 mg PO DAILY [facility] Last Admin: 08/04/21 08:04 Dose: 50 mg Documented by: TREVIN Methylprednisolone Sodium Succinate (Methylprednisolone Sod Succ 125 Mg/2 Ml Vial) 80 mg IVPUSH Q6H [facility] Last Admin: 08/04/21 08:04 Dose: 80 mg Documented by: TREVIN Montelukast Sodium (Montelukast Sodium 10 Mg Tablet) 10 mg PO BEDTIME [facility] Last Admin: 08/03/21 21:58 Dose: 10 mg Documented by: NAYE Nicotine (Nicotine 21 Mg Patch.Td24) 21 mg TRANSDERMA DAILY [facility] Last Admin: 08/04/21 08:05 Dose: 21 mg Documented by: TREVIN Non-Formulary Medication (Arformoterol [Brovana]) 2 ml INHALE Q12H [facility] Non-Formulary Medication (Budesonide) 0.5 mg INHALE BID [facility] Ondansetron HCl (Ondansetron Hcl 4 Mg/2 Ml Vial) 4 mg IVPUSH Q8H PRN PRN Reason: Nausea Pantoprazole Sodium (Pantoprazole Sodium 40 Mg/10 Ml Vial) 40 mg IVPUSH DAILY@0630 [facility] Last Admin: 08/04/21 08:04 Dose: 40 mg Documented by: TREVIN Pharmacy Consult (Consult Rx Perform Med Rec) 1 each MISCELLANE ONCE PRN PRN Reason: Consult order Pharmacy Consult (Consult Rx Vancomycin Dosing) 1 each MISCELLANE DAILY PRN PRN Reason: Consult order Senna (Sennosides 8.6 Mg Tablet) 8.6 mg PO BEDTIME PRN PRN Reason: constipation Labs CBC & Chem 7: 08/04/21 05:28 08/04/21 05:28 Labs: Laboratory Results - last 24 hr 07/31/21 08/03/21 08/03/21 10:13 09:17 11:31 MCV MCH MCHC RDW Plt Count MPV Immature Gran % (Auto) Neut % (Auto) Lymph % (Auto) [place] % (Auto) Eos % (Auto) Baso % (Auto) Lymph # (Auto) [place] # (Auto) Eos # (Auto) Baso # (Auto) Abs Immat Gran (auto) Absolute Neuts (auto) Absolute Nucleated RBC Nucleated RBC % (auto) Smear Tech's Comments VBG pH 7.42 VBG pCO2 90 VBG pO2 49 VBG HCO3 58 H VBG O2 Saturation 77.0 VBG Base Excess 27.5 Anion Gap Estim Creat Clear Calc Estimated GFR POC Glucose 239 H Random Glucose Calcium Phosphorus Magnesium CAROLYNE Titer 2 TNP CAROLYNE Titer 3 TNP CAROLYNE Pattern 2 TNP CAR[place]NE Pattern 3 TNP 08/03/21 08/03/21 08/03/21 16:30 17:34 20:37 MCV MCH MCHC RDW Plt Count MPV Immature Gran % (Auto) Neut % (Auto) Lymph % (Auto) [place] % (Auto) Eos % (Auto) Baso % (Auto) Lymph # (Auto) [place] # (Auto) Eos # (Auto) Baso # (Auto) Abs Immat Gran (auto) Absolute Neuts (auto) Absolute Nucleated RBC Nucleated RBC % (auto) Smear Tech's Comments VBG pH 7.55 H 7.39 VBG pCO2 44 78 VBG pO2 212 52 VBG HCO3 39 H 48 H VBG O2 Saturation 100.0 81.0 VBG Base Excess 15.7 18.2 Anion Gap Estim Creat Clear Calc Estimated GFR POC Glucose 261 H Random Glucose Calcium Phosphorus Magnesium CAROLYNE Titer 2 CAROLYNE Titer 3 CAROLYNE Pattern 2 CAROLYNE Pattern 3 08/03/21 08/04/21 08/04/21 20:51 00:27 00:42 MCV MCH MCHC RDW Plt Count MPV Immature Gran % (Auto) Neut % (Auto) Lymph % (Auto) [place] % (Auto) Eos % (Auto) Baso % (Auto) Lymph # (Auto) [place] # (Auto) Eos # (Auto) Baso # (Auto) Abs Immat Gran (auto) Absolute Neuts (auto) Absolute Nucleated RBC Nucleated RBC % (auto) Smear Tech's Comments VBG pH 7.43 VBG pCO2 78 VBG pO2 63 VBG HCO3 52 H VBG O2 Saturation 89.0 VBG Base Excess 22.8 Anion Gap 15 Estim Creat Clear Calc 116.2 Estimated GFR > 60 POC Glucose 223 H Random Glucose 195 H Calcium 9.2 Phosphorus Magnesium CAROLYNE Titer 2 CAROLYNE Titer 3 CAROLYNE Pattern 2 CAROLYNE Pattern 3 08/04/21 08/04/21 08/04/21 05:28 05:28 05:43 MCV 96.0 MCH 29.9 MCHC 31.1 RDW 13.6 Plt Count 258 MPV 9.7 Immature Gran % (Auto) 0.6 H Neut % (Auto) 94.9 H Lymph % (Auto) 1.7 L [place] % (Auto) 2.7 Eos % (Auto) 0.0 Baso % (Auto) 0.1 Lymph # (Auto) 0.2 L [place] # (Auto) 0.4 Eos # (Auto) 0.0 Baso # (Auto) 0.0 Abs Immat Gran (auto) 0.09 H Absolute Neuts (auto) 13.2 H Absolute Nucleated RBC 0.000 Nucleated RBC % (auto) 0.0 Smear Tech's Comments VERIFIED VBG pH 7.48 H VBG pCO2 55 VBG pO2 64 VBG HCO3 41 H VBG O2 Saturation 91.0 VBG Base Excess 15.3 Anion Gap 12 Estim Creat Clear Calc 120.4 Estimated GFR > 60 POC Glucose Random Glucose 190 H Calcium 9.1 Phosphorus 2.4 L Magnesium 2.1 CAROLYNE Titer 2 CAROLYNE Titer 3 CAROLYNE Pattern 2 ACROLYNE Pattern 3 08/04/21 08:16 MCV MCH MCHC RDW Plt Count MPV Immature Gran % (Auto) Neut % (Auto) Lymph % (Auto) [place] % (Auto) Eos % (Auto) Baso % (Auto) Lymph # (Auto) [place] # (Auto) Eos # (Auto) Baso # (Auto) Abs Immat Gran (auto) Absolute Neuts (auto) Absolute Nucleated RBC Nucleated RBC % (auto) Smear Tech's Comments VBG pH VBG pCO2 VBG pO2 VBG HCO3 VBG O2 Saturation VBG Base Excess Anion Gap Estim Creat Clear Calc Estimated GFR POC Glucose 190 H Random Glucose Calcium Phosphorus Magnesium CAROLYNE Titer 2 CAROLYNE Titer 3 CAROLYNE Pattern 2 CAROLYNE Pattern 3 Assessment and Plan (1) Viral syndrome: Status: Acute (2) Acute and chronic respiratory failure: Status: Acute (3) Pneumonitis: Status: Acute Plan 51-year-old lady with underlying morbid obesity, asthma/ COPD overlap syndrome, obesity hypoventilation, on 2 L of supplemental oxygen, nocturnal BiPAP hypogammaglobulinemia on IVIG, opioid dependence on methadone, diabetes mellitus, hypertension, admitted on 06/06/2021 with dyspnea and hypoxia requiring BiPAP support.? Acute on chronic hypoxic hypercapnic respiratory failure secondary to COPD exacerbation, CO2 retention, viral URI(human metapneumovirus) Responded well to BiPAP treatment in ICU(transferred from icu yesterday) abnormal CT Patient was getting treatment with nebs, steroids, BiPAP, antibiotics-was progressively getting worse suggested a went to ICU and received IV aminophylline as well as BiPAP there and seems to be improving. Discussed with ICU and Pulmonary repeat CT scan today. For now continue I IV steroid, neb, doxycycline, BiPAP, care team added for anxiety . Traction alkalosis Secondary to hypoxic hypercapnic respiratory failure Follow BMP DM:?( previous admission in may-was on metformin/sliding scale) Fing ersticks are running from 150-200 range Monitor fingersticks with sliding scale coverage. Hba1c levels ?Opioid dependence continue methadone Hypertension: continue Cardizem, lisinopril Controlled. Morbid obesity: Encouraged to cut down calories, consider outpatient bariatric evaluation. DVT PPX Lovenox Need for inpatient:? Worsening? on chronic hypoxic hypercapnic respiratory failure secondary to COPD exacerbation, CO2 retention, viral URI, need ICU level of care. Quality Stroke Does the patient have a stroke diagnosis?: No VTE Prior VTE?: No VTE Risk Level:: Medical - moderate - high VTE Device Contraindication: N/A - Device Ordered VTE Drug Contraindication: N/A - Med Ordered
[2021-08-04] MEDS: Insulin Lispro 100 UNIT/ML 3 ML VIAL SUBCUT ×4 (08:31→20:53)
--- NOTE | 2021-08-04 09:27 | MHC.CARE ---
CARE Team attempted to meet with Pt. [employer]electric station chief was not available. CARE Team will attempt to meet with Pt again.
[2021-08-04 09:29] LABS: Venous Blood Gas Refer to POC result
[2021-08-04 11:13] LABS: Glucose, Whole Blood 222 mg/dL (60-115)
[2021-08-04] MEDS: Doxycycline Hyclate 100 MG in 0.9 % Sodium Chloride 250 ML 166.67 MG IV ×2 (12:25→22:50)
--- NOTE | 2021-08-04 13:06 | PM.PNPUL ---
Subjective Subjective Date of Service: 08/05/21 Interval history: The patient was seen on exam. She did briefly go to the ICU for worsening respiratory failure. She was given IV aminophylline continue on the steroids. She was maintained on BiPAP. Appears to be doing a little better and was transfer out of the unit. She is scheduled to undergo a CT of the chest. Objective Data Labs CBC & Chem 7: 08/05/21 06:09 08/05/21 06:09 Labs: Laboratory Results - last 24 hr 07/31/21 08/03/21 08/03/21 10:13 16:30 17:34 WBC RBC Hgb Hct MCV MCH MCHC RDW Plt Count MPV Immature Gran % (Auto) Neut % (Auto) Lymph % (Auto) [place] % (Auto) Eos % (Auto) Baso % (Auto) Lymph # (Auto) [place] # (Auto) Eos # (Auto) Baso # (Auto) Abs Immat Gran (auto) Absolute Neuts (auto) Absolute Nucleated RBC Nucleated RBC % (auto) Smear Tech's Comments VBG pH 7.55 H VBG pCO2 44 VBG pO2 212 VBG HCO3 39 H VBG O2 Saturation 100.0 VBG Base Excess 15.7 Sodium Potassium Chloride Carbon Dioxide Anion Gap BUN Creatinine Estim Creat Clear Calc Estimated GFR POC Glucose 261 H Random Glucose Calcium Phosphorus Magnesium CAROLYNE Titer 2 TNP CAROLYNE Titer 3 TNP CAROLYNE Pattern 2 TNP CAROLYNE Pattern 3 TNP 08/03/21 08/03/21 08/04/21 20:37 20:51 00:27 WBC RBC Hgb Hct MCV MCH MCHC RDW Plt Count MPV Immature Gran % (Auto) Neut % (Auto) Lymph % (Auto) [place] % (Auto) Eos % (Auto) Baso % (Auto) Lymph # (Auto) [place] # (Auto) Eos # (Auto) Baso # (Auto) Abs Immat Gran (auto) Absolute Neuts (auto) Absolute Nucleated RBC Nucleated RBC % (auto) Smear Tech's Comments VBG pH 7.39 VBG pCO2 78 VBG pO2 52 VBG HCO3 48 H VBG O2 Saturation 81.0 VBG Base Excess 18.2 Sodium 141 Potassium 4.2 Chloride 93 L Carbon Dioxide 37 H Anion Gap 15 BUN 21 H Creatinine 0.59 Estim Creat Clear Calc 116.2 Estimated GFR > 60 POC Glucose 223 H Random Glucose 195 H Calcium 9.2 Phosphorus Magnesium CAROLYNE Titer 2 CAROLYNE Titer 3 CAROLYNE Pattern 2 CAROLYNE Pattern 3 08/04/21 08/04/21 08/04/21 00:42 05:28 05:28 WBC 13.9 H RBC 4.22 Hgb 12.6 Hct 40.5 MCV 96.0 MCH 29.9 MCHC 31.1 RDW 13.6 Plt Count 258 MPV 9.7 Immature Gran % (Auto) 0.6 H Neut % (Auto) 94.9 H Lymph % (Auto) 1.7 L [place] % (Auto) 2.7 Eos % (Auto) 0.0 Baso % (Auto) 0.1 Lymph # (Auto) 0.2 L [place] # (Auto) 0.4 Eos # (Auto) 0.0 Baso # (Auto) 0.0 Abs Immat Gran (auto) 0.09 H Absolute Neuts (auto) 13.2 H Absolute Nucleated RBC 0.000 Nucleated RBC % (auto) 0.0 Smear Tech's Comments VERIFIED VBG pH 7.43 VBG pCO2 78 VBG pO2 63 VBG HCO3 52 H VBG O2 Saturation 89.0 VBG Base Excess 22.8 Sodium 140 Potassium 4.2 Chloride 94 L Carbon Dioxide 38 H Anion Gap 12 BUN 19 H Creatinine 0.56 Estim Creat Clear Calc 120.4 Estimated GFR > 60 POC Glucose Random Glucose 190 H Calcium 9.1 Phosphorus 2.4 L Magnesium 2.1 CAROLYNE Titer 2 CAROLYNE Titer 3 [place]NE Pattern 2 [place] Pattern 3 08/04/21 08/04/21 08/04/21 05:43 08:16 11:08 WBC RBC Hgb Hct MCV MCH MCHC RDW Plt Count MPV Immature Gran % (Auto) Neut % (Auto) Lymph % (Auto) [place] % (Auto) Eos % (Auto) Baso % (Auto) Lymph # (Auto) [place] # (Auto) Eos # (Auto) Baso # (Auto) Abs Immat Gran (auto) Absolute Neuts (auto) Absolute Nucleated RBC Nucleated RBC % (auto) Smear Tech's Comments VBG pH 7.48 H VBG pCO2 55 VBG pO2 64 VBG HCO3 41 H VBG O2 Saturation 91.0 VBG Base Excess 15.3 Sodium Potassium Chloride Carbon Dioxide Anion Gap BUN Creatinine Estim Creat Clear Calc Estimated GFR POC Glucose 190 H 222 H Random Glucose Calcium Phosphorus Magnesium CAR[place] Titer 2 CAROLYNE Titer 3 [place]NE Pattern 2 [place] Pattern 3 Microbiology Microbiology Results: Microbiology 07/30/21 09:37 Blood - Venous Blood Culture - Final No growth after 5 days. 07/30/21 09:37 Blood - Venous Blood Culture - Final No growth after 5 days. Review of Systems Review of Systems Constitutional : No Fever, No Chills +distress ENT/Mouth : No Hoarseness, No sore throat, No Rhinorrhea Eyes: No Redness, No Discharge, No Vision Changes Cardiovascular : pos Chest Pain, positive SOB, positive Dyspnea on Exertion, No Edema Respiratory : positive Cough, pos Sputum, positive Wheezing, Gastrointestinal : No Nausea, No Vomiting, No Diarrhea, No abdominal Pain Genitourinary : No Dysuria, No Hematuria Musculoskeletal : No joint pain, No Myalgias Skin : No rash Neuro : No Weakness, No Numbness, No Headache Psych : No anxiety, depression Heme/Lymph: No Bruising, No Bleeding Endocrine : No Polyuria, No Polydipsia All other systems reviewed and are negative Physical Exam Vital Signs: Vital Signs: Last Vital Signs Temp 98.3 F 08/04/21 12:00 Pulse 102 H 08/04/21 12:00 Resp 20 08/04/21 12:00 BP 140/73 H 08/04/21 12:00 Pulse Ox 94 08/04/21 12:00 Oxygen Flow Rate 35 08/03/21 20:00 BMI result Body Mass Index 36.9 Const: General: alert Neck: Neck: Yes normal visual inspection, Yes full ROM and Yes no lymphadenopathy Chest: Chest palpation & inspection: normal inspection of the chest Resp: Auscultation: wheezes and diminished lung sounds Cardio: Rate: regular rate Rhythm: regular rhythm Heart sounds: S1 normal heart sound present and S2 normal heart sound present GI: Palpation (GI): Soft to palpation and nontender Auscultation: normal bowel sounds Skin: General skin exam: rashes and/or lesions noted Procedures Date of Service Date of Service: 08/04/21 Assessment and Plan Assessment and plan (1) Acute and chronic respiratory failure: Status: Acute (2) Viral syndrome: Status: Acute (3) Pneumonitis: Status: Acute (4) Status asthmaticus with COPD (chronic obstructive pulmonary disease): Status: Acute Plan Continue Solu-Medrol Continue aminophylline, need to closely monitor theophylline levels closely Respiratory therapy every 2 hours Consider Heliox Continue BiPAP and alternating with high-flow Continue doxycycline for now CT scan of the chest today Time Spent With Patient Time: Total time spent is greater than 50% in coordination of care (as documented) at patient's floor/unit and/or counseling patient: Progress Note: Quality Stroke Does the patient have a stroke diagnosis?: No
[2021-08-04] MEDS: LORazepam 2 MG/ML VIAL 1 MG IVPUSH (13:07)
[2021-08-04 15:07] LABS: Procalcitonin 0.03 ng/mL
[2021-08-04 16:06] LABS: Glucose, Whole Blood 275 mg/dL (60-115)
[2021-08-04 20:32] LABS: Glucose, Whole Blood 203 mg/dL (60-115)
[2021-08-04] MEDS: Montelukast Sodium 10 MG TABLET PO (20:45)
[2021-08-04] MEDS: Atorvastatin Calcium 20 MG TABLET PO (20:45)
[2021-08-04] MEDS: Insulin Glargine,Hum.rec.anlog 100 UNIT/ML 10 ML VIAL 45 UNIT SUBCUT (20:52)
[2021-08-05] VITALS (12 sets, daily range): BP systolic 141–184; BP diastolic 76–89; PULSE 78–117; RESP 13–26; TEMP 36.3–36.7; O2SAT 90–97; BMI 36.9
[2021-08-05] MEDS: methylPREDNISolone Sod Succ 125 MG/2 ML VIAL 80 MG IVPUSH ×4 (01:57→20:52)
[2021-08-05] MEDS: Albuterol/Iprat 2.5/0.5MG 3 ML AMPUL.NEB INHALE ×5 (04:12→18:59)
[2021-08-05 06:24] LABS: Venous Blood Gas Refer to POC result
[2021-08-05 06:24] LABS: Theophylline 4.4
[2021-08-05 06:24] LABS: VBG Base Excess 17.9 mmol/L; VBG HCO3 46 mmol/L (22-26); VBG pCO2 69 mmHg; VBG pH 7.42 (7.32-7.43); VBG pO2 53 mmHg
[2021-08-05 06:25] LABS: Theophylline < 0.8
[2021-08-05] MEDS: Pantoprazole Sodium 40 MG/10 ML VIAL IVPUSH (06:27)
[2021-08-05] MEDS: Heparin Sodium,Porcine 5,000 UNIT/ML VIAL 5000 UNIT SUBCUT ×2 (06:27→13:29)
[2021-08-05 06:32] LABS: Basophils Percent Auto 0.1 % (0-2); Hemoglobin 12.3 g/dl (12.0-16.0); Imm Gran Abs Auto 0.09 X10*3/uL (0.00-0.03); Imm Gran Pct Auto 0.6 % (0.0-0.4); Lymphocytes Absolute Auto 0.2 X10*3/uL (1.2-4.9); Lymphocytes Percent Auto 1.2 % (20-40); MANUAL DIFF FLAG SCAN; Mean Corpuscular Hemoglobin 29.2 pg (27.0-33.0); Mean Corpuscular Volume 97.4 fL (80.0-98.0); Monocytes Absolute Auto 0.3 X10*3/uL (0.1-1.2); Monocytes Percent Auto 2.1 % (2-11); Neutrophils Absolute Auto 15.3 x10*3/uL (2.0-8.3); Platelet Count 249 X10*3/uL (160-400); Red Blood Count 4.21 X10*6/uL (4.20-5.50); Red Cell Distribution Width 13.5 % (11.0-16.0); SCAN SMEAR FLAG 1; White Blood Count 15.9 X10*3/uL (4.8-10.8)
[2021-08-05 06:58] LABS: Vancomycin Trough < 3.0 mcg/mL (10.0-20.0)
[2021-08-05 07:08] LABS: Blood Urea Nitrogen 25 mg/dL (9-16); Creatinine Clr Calc Pharmacy 118.2; Estimated Glomerular Filt Rate > 60; Glucose Random 216 mg/dL (60-115); Magnesium 2.3 mg/dL (1.6-2.6); Phosphorus 2.7 mg/dL (2.7-4.5)
[2021-08-05 07:11] LABS: SLIDE REVIEW VERIFIED
[2021-08-05 07:19] LABS: Glucose, Whole Blood 200 mg/dL (60-115)
[2021-08-05 07:22] LABS: Anion Gap 13 (12-20); Carbon Dioxide 39 mmol/L (22-29); Chloride 95 mmol/L (96-108); Potassium 4.5 mmol/L (3.3-5.1); Sodium 142 mmol/L (135-145)
[2021-08-05] MEDS: Insulin Lispro 100 UNIT/ML 3 ML VIAL SUBCUT ×4 (08:16→20:52)
[2021-08-05] MEDS: Nicotine 21 MG PATCH.TD24 TRANSDERMA (08:20)
[2021-08-05] MEDS: methADONE HCl 20 MG/2 ML ORAL.CONC 50 MG PO (08:23)
[2021-08-05] MEDS: Loratadine 10 MG TABLET PO (08:25)
[2021-08-05] MEDS: lisinopriL 40 MG TABLET PO (08:25)
[2021-08-05] MEDS: Gabapentin 100 MG CAPSULE PO ×2 (08:25→20:51)
[2021-08-05] MEDS: dilTIAZem HCL CD 180 MG CAP.ER.24H 360 MG PO (08:27)
[2021-08-05] MEDS: Lidocaine 4 % Patch ADH..PATCH 1 PATCH TRANSDERMA (08:28)
--- NOTE | 2021-08-05 09:14 | HO.PM.IMPN ---
Subjective Subjective Date of Service: 08/05/21 Interval History: Acute hypoxemic/hypercarbic respiratory failure secondary to COPD Review of Systems Short of breath seems to be slightly better than yesterday, sit still anxious, Has dry cough otherwise denies any chest pain on nausea or vomiting or abdominal pain. Physical Exam Vital Signs: Vital Signs: Last Vital Signs Temp 97.9 F 08/05/21 07:13 Pulse 86 08/05/21 07:13 Resp 20 08/05/21 07:28 BP 158/88 H 08/05/21 07:13 Pulse Ox 93 08/05/21 07:13 Oxygen Flow Rate 35 08/03/21 20:00 BMI result Body Mass Index 36.9 Appearance: Alert.? Oriented X3.sob with talking cvs: rrr, [id number] res: air entry tight, has b/l rhonchii abd: no rebound or guarding ,nt, bs present. ext pulses present , no cyanosis . neuro: axo3 , nonfocal Objective Data Active Medications Acetaminophen (Acetaminophen 325 Mg Tablet) 325 mg PO Q6H PRN PRN Reason: pain or fever Last Admin: 07/31/21 20:16 Dose: 325 mg Documented by: DAVE Albuterol/Ipratropium (Albuterol/Iprat 2.5/0.5mg 3 Ml Ampul.Neb) 3 ml INHALE RQ4H [facility] Last Admin: 08/05/21 07:27 Dose: 3 ml Documented by: RAHEL Albuterol/Ipratropium (Albuterol/Iprat 2.5/0.5mg 3 Ml Ampul.Neb) 3 ml INHALE Q4H PRN PRN Reason: for wheezing Last Admin: 08/03/21 11:33 Dose: 3 ml Documented by: SANJAY Atorvastatin Calcium (Atorvastatin Calcium 20 Mg Tablet) 20 mg PO BEDTIME [facility] Last Admin: 08/04/21 20:45 Dose: 20 mg Documented by: NAYE Dextrose (Dextrose 50 % 25 Gm/50 Ml Syringe) 25 gm IVPUSH Q15M PRN; Protocol PRN Reason: per Hypoglycemia Standing Ord. Dextrose (Dextrose 50 % 25 Gm/50 Ml Syringe) 25 gm IVPUSH Q15M PRN; Protocol PRN Reason: per Hypoglycemia Standing Ord. Diltiazem HCl (Diltiazem Hcl Cd 180 Mg Cap.Er.24h) 360 mg PO DAILY [facility]; Protocol Last Admin: 08/05/21 08:27 Dose: 360 mg Documented by: LONNIE Gabapentin (Gabapentin 100 Mg Capsule) 100 mg PO BID [facility] Last Admin: 08/05/21 08:25 Dose: 100 mg Documented by: LONNIE Glucose (Glucose Gel 15 Gm Gel..Gram.) 15 gm PO Q15M PRN; Protocol PRN Reason: per Hypoglycemia Standing Ord. Glucose (Glucose Gel 15 Gm Gel..Gram.) 15 gm PO Q15M PRN; Protocol PRN Reason: per Hypoglycemia Standing Ord. Heparin Sodium (Porcine) (Heparin Sodium,Porcine 5,000 Unit/Ml Vial) 5,000 unit SUBCUT Q8H [facility] Last Admin: 08/05/21 06:27 Dose: 5,000 unit Documented by: ANTONINA Doxycycline Hyclate 100 mg/ (Sodium Chloride) 250 mls @ 166.67 mls/hr IV Q12H [facility] Last Infusion: 08/05/21 03:20 Dose: 166.67 mls/hr Documented by: ANTONINA Insulin Glargine (Insulin Glargine,Hum.Rec.Anlog 100 Unit/Ml 10 Ml Vial) 45 unit SUBCUT BEDTIME [facility] Last Admin: 08/04/21 20:52 Dose: 45 unit Documented by: NAYE Insulin Human Lispro (Insulin Lispro 100 Unit/Ml 3 Ml Vial) 0 unit SUBCUT QIDACHS [facility]; Protocol Last Admin: 08/05/21 08:16 Dose: 2 unit Documented by: LONNIE Levalbuterol HCl (Levalbuterol Hcl 1.25 Mg/0.5 Ml Vial.Neb) 1.25 mg INHALE 8XD PRN PRN Reason: Dyspnea Lidocaine (Lidocaine 4 % Patch Adh..Patch) 1 patch TRANSDERMA DAILY [facility] Last Admin: 08/05/21 08:28 Dose: 1 patch Documented by: LONNIE Lisinopril (Lisinopril 40 Mg Tablet) 40 mg PO DAILY [facility]; Protocol Last Admin: 08/05/21 08:25 Dose: 40 mg Documented by: LONNIE Loratadine (Loratadine 10 Mg Tablet) 10 mg PO DAILY [facility] Last Admin: 08/05/21 08:25 Dose: 10 mg Documented by: LONNIE Methadone HCl (Methadone Hcl 20 Mg/2 Ml Oral.Conc) 50 mg PO DAILY [facility] Last Admin: 08/05/21 08:23 Dose: 50 mg Documented by: LONNIE Methylprednisolone Sodium Succinate (Methylprednisolone Sod Succ 125 Mg/2 Ml Vial) 80 mg IVPUSH Q6H [facility] Last Admin: 08/05/21 08:16 Dose: 80 mg Documented by: LONNIE Montelukast Sodium (Montelukast Sodium 10 Mg Tablet) 10 mg PO BEDTIME [facility] Last Admin: 08/04/21 20:45 Dose: 10 mg Documented by: NAYE Nicotine (Nicotine 21 Mg Patch.Td24) 21 mg TRANSDERMA DAILY [facility] Last Admin: 08/05/21 08:20 Dose: 21 mg Documented by: LONNIE Non-Formulary Medication (Arformoterol [Brovana]) 2 ml INHALE Q12H [facility] Non-Formulary Medication (Budesonide) 0.5 mg INHALE BID [facility] Ondansetron HCl (Ondansetron Hcl 4 Mg/2 Ml Vial) 4 mg IVPUSH Q8H PRN PRN Reason: Nausea Pharmacy Consult (Consult Rx Perform Med Rec) 1 each MISCELLANE ONCE PRN PRN Reason: Consult order Pharmacy Consult (Consult Rx Vancomycin Dosing) 1 each MISCELLANE DAILY PRN PRN Reason: Consult order Senna (Sennosides 8.6 Mg Tablet) 8.6 mg PO BEDTIME PRN PRN Reason: constipation Labs CBC & Chem 7: 08/05/21 06:09 08/05/21 06:09 Labs: Laboratory Results - last 24 hr 08/03/21 08/04/21 08/04/21 17:33 11:08 13:14 MCV MCH MCHC RDW Plt Count MPV Immature Gran % (Auto) Neut % (Auto) Lymph % (Auto) [place] % (Auto) Eos % (Auto) Baso % (Auto) Lymph # (Auto) [place] # (Auto) Eos # (Auto) Baso # (Auto) Abs Immat Gran (auto) Absolute Neuts (auto) Absolute Nucleated RBC Nucleated RBC % (auto) Smear Tech's Comments VBG pH VBG pCO2 VBG pO2 VBG HCO3 VBG O2 Saturation VBG Base Excess Anion Gap Estim Creat Clear Calc Estimated GFR POC Glucose 222 H Random Glucose Calcium Phosphorus Magnesium Procalcitonin 0.03 Vancomycin Trough Theophylline 4.4 08/04/21 08/04/21 08/04/21 13:14 16:02 20:13 MCV MCH MCHC RDW Plt Count MPV Immature Gran % (Auto) Neut % (Auto) Lymph % (Auto) [place] % (Auto) Eos % (Auto) Baso % (Auto) Lymph # (Auto) [place] # (Auto) Eos # (Auto) Baso # (Auto) Abs Immat Gran (auto) Absolute Neuts (auto) Absolute Nucleated RBC Nucleated RBC % (auto) Smear Tech's Comments VBG pH VBG pCO2 VBG pO2 VBG HCO3 VBG O2 Saturation VBG Base Excess Anion Gap Estim Creat Clear Calc Estimated GFR POC Glucose 275 H 203 H Random Glucose Calcium Phosphorus Magnesium Procalcitonin Vancomycin Trough Theophylline < 0.8 08/05/21 08/05/21 08/05/21 06:09 06:09 06:09 MCV 97.4 MCH 29.2 MCHC 30.0 L RDW 13.5 Plt Count 249 MPV 9.0 L Immature Gran % (Auto) 0.6 H Neut % (Auto) 96.0 H Lymph % (Auto) 1.2 L [place] % (Auto) 2.1 Eos % (Auto) 0.0 Baso % (Auto) 0.1 Lymph # (Auto) 0.2 L [place] # (Auto) 0.3 Eos # (Auto) 0.0 Baso # (Auto) 0.0 Abs Immat Gran (auto) 0.09 H Absolute Neuts (auto) 15.3 H Absolute Nucleated RBC 0.000 Nucleated RBC % (auto) 0.0 Smear Tech's Comments VERIFIED VBG pH VBG pCO2 VBG pO2 VBG HCO3 VBG O2 Saturation VBG Base Excess Anion Gap 13 Estim Creat Clear Calc 118.2 Estimated GFR > 60 POC Glucose Random Glucose 216 H Calcium 9.0 Phosphorus 2.7 Magnesium 2.3 Procalcitonin Vancomycin Trough < 3.0 L Theophylline 08/05/21 08/05/21 06:16 07:15 MCV MCH MCHC RDW Plt Count MPV Immature Gran % (Auto) Neut % (Auto) Lymph % (Auto) [place] % (Auto) Eos % (Auto) Baso % (Auto) Lymph # (Auto) [place] # (Auto) Eos # (Auto) Baso # (Auto) Abs Immat Gran (auto) Absolute Neuts (auto) Absolute Nucleated RBC Nucleated RBC % (auto) Smear Tech's Comments VBG pH 7.42 VBG pCO2 69 VBG pO2 53 VBG HCO3 46 H VBG O2 Saturation 82.0 VBG Base Excess 17.9 Anion Gap Estim Creat Clear Calc Estimated GFR POC Glucose 200 H Random Glucose Calcium Phosphorus Magnesium Procalcitonin Vancomycin Trough Theophylline Microbiology Microbiology Results: Microbiology 07/30/21 09:37 Blood Culture - Final Blood - Venous No growth after 5 days. 07/30/21 09:37 Blood Culture - Final Blood - Venous No growth after 5 days. Assessment and Plan (1) Acute and chronic respiratory failure: Status: Acute (2) Type 2 diabetes mellitus: Status: Acute (3) Hypertensive cardiovascular disease: Status: Acute Plan 51-year-old lady with underlying morbid obesity, asthma/ COPD overlap syndrome, obesity hypoventilation, on 2 L of supplemental oxygen, nocturnal BiPAP hypogammaglobulinemia on IVIG, opioid dependence on methadone, diabetes mellitus, hypertension, admitted on 06/06/2021 with dyspnea and hypoxia requiring BiPAP support.? Acute on chronic hypoxic hypercapnic respiratory failure secondary to COPD exacerbation, CO2 retention, viral URI(human metapneumovirus) Responded well to BiPAP treatment in ICU(transferred from icu yesterday) abnormal CT Patient was getting treatment with nebs, steroids, BiPAP, antibiotics-was progressively getting worse suggested a went to ICU and received IV aminophylline as well as BiPAP there and seems to be improving. Discussed with ICU and Pulmonary repeat CT scan-noted . d/wpulm in detail ct scan.procalcitonin low For now continue IV steroid, neb, doxycycline(continue procalcitonin levels), BiPAP, care team added for anxiety . Traction alkalosis Secondary to hypoxic hypercapnic respiratory failure Follow BMP DM:?( previous admission in may-was on metformin/sliding scale) Fingersticks are running from 150-200 range Monitor fingersticks with sliding scale coverage. Hba1c levels ?Opioid dependence continue methadone Hypertension: ?continue Cardizem, lisinopril Controlled. Morbid obesity: Encouraged to cut down calories, consider outpatient bariatric evaluation. DVT PPX Lovenox Need for inpatient:? acute on chronic hypoxic hypercapnic respiratory failure secondary to COPD exacerbation, CO2 retention, viral URI, need ICU level of care. Quality Stroke Does the patient have a stroke diagnosis?: No VTE Prior VTE?: No VTE Risk Level:: Medical - moderate - high VTE Device Contraindication: N/A - Device Ordered VTE Drug Contraindication: N/A - Med Ordered
[2021-08-05] MEDS: Doxycycline Hyclate 100 MG in 0.9 % Sodium Chloride 250 ML 166.67 MG IV (10:38)
[2021-08-05 11:40] LABS: Glucose, Whole Blood 286 mg/dL (60-115)
--- NOTE | 2021-08-05 12:43 | MHC.CARE ---
CARE Team met with Pt via actimize architect after consult placed for anxiety. Pt reported she has current mental health providers that come to her home. Pt declined needing additional support at this time.
[2021-08-05 13:27] LABS: Procalcitonin 0.02 ng/mL
[2021-08-05 14:59] LABS: Alanine Aminotransferase 37 U/L (0-31); Albumin Level 3.3 g/dL (3.5-5.0); Alkaline Phosphatase 59 U/L (39-117); Aspartate Amino Transferase 25 U/L (5-31); Bilirubin Direct 0.2 mg/dL (0.0-0.5); Bilirubin Total 0.4 mg/dL (0.0-1.0); Total Protein 6.1 g/dL (6.5-8.0)
[2021-08-05 15:59] LABS: Glucose, Whole Blood 250 mg/dL (60-115)
[2021-08-05 20:11] LABS: Glucose, Whole Blood 291 mg/dL (60-115)
[2021-08-05] MEDS: Montelukast Sodium 10 MG TABLET PO (20:51)
[2021-08-05] MEDS: Atorvastatin Calcium 20 MG TABLET PO (20:51)
[2021-08-05] MEDS: Insulin Glargine,Hum.rec.anlog 100 UNIT/ML 10 ML VIAL 45 UNIT SUBCUT (20:52)
[2021-08-06] VITALS (15 sets, daily range): BP systolic 141–176; BP diastolic 64–89; PULSE 71–109; RESP 16–23; TEMP 36.2–36.7; O2SAT 91–98; BMI 39.0
[2021-08-06] MEDS: Doxycycline Hyclate 100 MG in 0.9 % Sodium Chloride 250 ML 166.67 MG IV ×3 (00:01→21:49)
[2021-08-06] MEDS: Albuterol/Iprat 2.5/0.5MG 3 ML AMPUL.NEB INHALE ×5 (00:44→15:24)
[2021-08-06] MEDS: methylPREDNISolone Sod Succ 125 MG/2 ML VIAL 80 MG IVPUSH ×4 (02:06→21:40)
[2021-08-06] MEDS: Heparin Sodium,Porcine 5,000 UNIT/ML VIAL 5000 UNIT SUBCUT ×4 (06:29→21:40)
[2021-08-06 07:31] LABS: Legionella Ag Urine Not Detected (Not Detected)
--- NOTE | 2021-08-06 07:47 | P.PNIM_ITS ---
Subjective Subjective Date of Service: 08/06/21 Interval History: Acute hypoxemic/hypercarbic respiratory failure secondary to COPD Review of Systems sob seems slightly better than yesterday, still gets short of breath with slight exertion. Has dry cough Denies any fever or chills or nausea or vomiting or abdominal pain Physical Exam Vital Signs: Vital Signs: Last Vital Signs Temp 97.5 F 08/06/21 03:18 Pulse 89 08/06/21 03:33 Resp 17 08/06/21 03:33 BP 141/89 H 08/06/21 03:18 Pulse Ox 93 08/06/21 03:18 Oxygen Flow Rate 35 08/03/21 20:00 BMI result Body Mass Index 39.0 Appearance: Alert.? Oriented X3.sob with talking cvs: rrr, [id number] res: air entry tight, has b/l rhonchii abd: no rebound or guarding ,nt, bs present. ext pulses present , no cyanosis . neuro: axo3 , nonfocal Objective Data Active Medications Acetaminophen (Acetaminophen 325 Mg Tablet) 325 mg PO Q6H PRN PRN Reason: pain or fever Last Admin: 07/31/21 20:16 Dose: 325 mg Documented by: DAVE Albuterol/Ipratropium (Albuterol/Iprat 2.5/0.5mg 3 Ml Ampul.Neb) 3 ml INHALE RQ4H [facility] Last Admin: 08/06/21 03:32 Dose: 3 ml Documented by: TIO Albuterol/Ipratropium (Albuterol/Iprat 2.5/0.5mg 3 Ml Ampul.Neb) 3 ml INHALE Q4H PRN PRN Reason: for wheezing Last Admin: 08/03/21 11:33 Dose: 3 ml Documented by: SANJAY Atorvastatin Calcium (Atorvastatin Calcium 20 Mg Tablet) 20 mg PO BEDTIME [facility] Last Admin: 08/05/21 20:51 Dose: 20 mg Documented by: CARLO Dextrose (Dextrose 50 % 25 Gm/50 Ml Syringe) 25 gm IVPUSH Q15M PRN; Protocol PRN Reason: per Hypoglycemia Standing Ord. Dextrose (Dextrose 50 % 25 Gm/50 Ml Syringe) 25 gm IVPUSH Q15M PRN; Protocol PRN Reason: per Hypoglycemia Standing Ord. Diltiazem HCl (Diltiazem Hcl Cd 180 Mg Cap.Er.24h) 360 mg PO DAILY [facility]; Protocol Last Admin: 08/05/21 08:27 Dose: 360 mg Documented by: LONNIE Gabapentin (Gabapentin 100 Mg Capsule) 100 mg PO BID [facility] Last Admin: 08/05/21 20:51 Dose: 100 mg Documented by: CARLO Glucose (Glucose Gel 15 Gm Gel..Gram.) 15 gm PO Q15M PRN; Protocol PRN Reason: per Hypoglycemia Standing Ord. Glucose (Glucose Gel 15 Gm Gel..Gram.) 15 gm PO Q15M PRN; Protocol PRN Reason: per Hypoglycemia Standing Ord. Heparin Sodium (Porcine) (Heparin Sodium,Porcine 5,000 Unit/Ml Vial) 5,000 unit SUBCUT Q8H [facility] Last Admin: 08/06/21 06:29 Dose: 5,000 unit Documented by: CARLO Doxycycline Hyclate 100 mg/ (Sodium Chloride) 250 mls @ 166.67 mls/hr IV Q12H [facility] Last Infusion: 08/06/21 02:10 Dose: 0 mls/hr Documented by: CARLO Insulin Glargine (Insulin Glargine,Hum.Rec.Anlog 100 Unit/Ml 10 Ml Vial) 45 unit SUBCUT BEDTIME [facility] Last Admin: 08/05/21 20:52 Dose: 45 unit Documented by: CARLO Insulin Human Lispro (Insulin Lispro 100 Unit/Ml 3 Ml Vial) 0 unit SUBCUT QIDACHS [facility]; Protocol Last Admin: 08/05/21 20:52 Dose: 6 unit Documented by: CARLO Levalbuterol HCl (Levalbuterol Hcl 1.25 Mg/0.5 Ml Vial.Neb) 1.25 mg INHALE 8XD PRN PRN Reason: Dyspnea Lidocaine (Lidocaine 4 % Patch Adh..Patch) 1 patch TRANSDERMA DAILY [facility] Last Admin: 08/05/21 08:28 Dose: 1 patch Documented by: LONNEI Lisinopril (Lisinopril 40 Mg Tablet) 40 mg PO DAILY [facility]; Protocol Last Admin: 08/05/21 08:25 Dose: 40 mg Documented by: LONNIE Loratadine (Loratadine 10 Mg Tablet) 10 mg PO DAILY [facility] Last Admin: 08/05/21 08:25 Dose: 10 mg Documented by: LONNIE Methadone HCl (Methadone Hcl 20 Mg/2 Ml Oral.Conc) 50 mg PO DAILY [facility] Last Admin: 08/05/21 08:23 Dose: 50 mg Documented by: LONNIE Methylprednisolone Sodium Succinate (Methylprednisolone Sod Succ 125 Mg/2 Ml Vial) 80 mg IVPUSH Q6H [facility] Last Admin: 08/06/21 02:06 Dose: 80 mg Documented by: CARLO Montelukast Sodium (Montelukast Sodium 10 Mg Tablet) 10 mg PO BEDTIME [facility] Last Admin: 08/05/21 20:51 Dose: 10 mg Documented by: CARLO Nicotine (Nicotine 21 Mg Patch.Td24) 21 mg TRANSDERMA DAILY [facility] Last Admin: 08/05/21 08:20 Dose: 21 mg Documented by: LONNIE Non-Formulary Medication (Arformoterol [Brovana]) 2 ml INHALE Q12H [facility] Non-Formulary Medication (Budesonide) 0.5 mg INHALE BID [facility] Ondansetron HCl (Ondansetron Hcl 4 Mg/2 Ml Vial) 4 mg IVPUSH Q8H PRN PRN Reason: Nausea Pharmacy Consult (Consult Rx Perform Med Rec) 1 each MISCELLANE ONCE PRN PRN Reason: Consult order Pharmacy Consult (Consult Rx Vancomycin Dosing) 1 each MISCELLANE DAILY PRN PRN Reason: Consult order Senna (Sennosides 8.6 Mg Tablet) 8.6 mg PO BEDTIME PRN PRN Reason: constipation Labs CBC & Chem 7: 08/06/21 10:32 08/06/21 10:32 Labs: Laboratory Results - last 24 hr 07/31/21 08/05/21 08/05/21 13:53 06:09 06:09 POC Glucose Total Bilirubin 0.4 Direct Bilirubin 0.2 AST 25 ALT 37 H Alkaline Phosphatase 59 Total Protein 6.1 L Albumin 3.3 L Procalcitonin 0.02 Ur L.pneumophila Ag Not Detected 08/05/21 08/05/21 08/05/21 10:56 15:55 19:43 POC Glucose 286 H 250 H 291 H Total Bilirubin Direct Bilirubin AST ALT Alkaline Phosphatase Total Protein Albumin Procalcitonin Ur L.pneumophila Ag Assessment and Plan (1) Acute and chronic respiratory failure: Status: Acute (2) Pneumonitis: Status: Acute (3) Type 2 diabetes mellitus: Status: Acute Plan 51-year-old lady with underlying morbid obesity, asthma/ COPD overlap syndrome, obesity hypoventilation, on 2 L of supplemental oxygen, nocturnal BiPAP hypogammaglobulinemia on IVIG, opioid dependence on methadone, diabetes mellitus, hypertension, admitted on 06/06/2021 with dyspnea and hypoxia requiring BiPAP support.? Acute on chronic hypoxic hypercapnic respiratory failure secondary to COPD exacerbation, CO2 retention, viral URI(human metapneumovirus) Responded well to BiPAP treatment in ICU(transferred from icu yesterday) abnormal CT Patient was getting treatment with nebs, steroids, BiPAP, antibiotics-was progressively getting worse suggested a went to ICU and received IV aminophylline as well as BiPAP there and seems to be improving. Discussed with ICU and Pulmonary repeat CT scan-noted . d/wpulm in detail ct scan.procalcitonin low For now continue IV steroid, neb, doxycycline day 3, BiPAP, care team added for anxiety . Traction alkalosis Secondary to hypoxic hypercapnic respiratory failure Follow BMP DM:?( previous admission in may-was on metformin/sliding scale) Fingersticks are running from 200-200 range Monitor fingersticks with sliding scale coverage. Hba1c levels ?Opioid dependence continue methadone Hypertension: ?continue Cardizem, lisinopril Controlled. Morbid obesity: Encouraged to cut down calories, consider outpatient bariatric evaluation. DVT PPX Lovenox Need for inpatient:? acute on chronic hypoxic hypercapnic respiratory failure secondary to COPD exacerbation, CO2 retention, viral URI. Quality Stroke Does the patient have a stroke diagnosis?: No VTE Prior VTE?: No VTE Risk Level:: Medical - moderate - high VTE Device Contraindication: N/A - Device Ordered VTE Drug Contraindication: N/A - Med Ordered
[2021-08-06 08:02] LABS: Glucose, Whole Blood 229 mg/dL (60-115)
[2021-08-06] MEDS: Insulin Lispro 100 UNIT/ML 3 ML VIAL SUBCUT ×4 (08:40→21:40)
[2021-08-06] MEDS: methADONE HCl 20 MG/2 ML ORAL.CONC 50 MG PO (08:41)
[2021-08-06] MEDS: lisinopriL 40 MG TABLET PO (08:41)
[2021-08-06] MEDS: dilTIAZem HCL CD 180 MG CAP.ER.24H 360 MG PO (08:41)
[2021-08-06] MEDS: Loratadine 10 MG TABLET PO (08:41)
[2021-08-06] MEDS: Gabapentin 100 MG CAPSULE PO ×2 (08:42→21:40)
[2021-08-06] MEDS: Lidocaine 4 % Patch ADH..PATCH 1 PATCH TRANSDERMA (08:44)
[2021-08-06] MEDS: Nicotine 21 MG PATCH.TD24 TRANSDERMA (08:45)
[2021-08-06 10:40] LABS: Basophils Percent Auto 0.1 % (0-2); Hematocrit 43.1 % (37.0-47.0); Hemoglobin 13.1 g/dl (12.0-16.0); Imm Gran Abs Auto 0.18 X10*3/uL (0.00-0.03); Lymphocytes Absolute Auto 0.2 X10*3/uL (1.2-4.9); MANUAL DIFF FLAG SCAN; Mean Corpuscular HGB Conc 30.4 g/dl (31.0-35.0); Mean Corpuscular Volume 98.6 fL (80.0-98.0); Mean Platelet Volume 9.3 fL (9.4-12.3); Monocytes Absolute Auto 0.5 X10*3/uL (0.1-1.2); Monocytes Percent Auto 2.9 % (2-11); Neutrophils Absolute Auto 16.3 x10*3/uL (2.0-8.3); Platelet Count 260 X10*3/uL (160-400); Red Blood Count 4.37 X10*6/uL (4.20-5.50); Red Cell Distribution Width 13.7 % (11.0-16.0); SCAN SMEAR FLAG 1; White Blood Count 17.2 X10*3/uL (4.8-10.8)
[2021-08-06 10:42] LABS: VBG Base Excess 20.9 mmol/L; VBG HCO3 51 mmol/L (22-26); VBG pCO2 86 mmHg; VBG pH 7.38 (7.32-7.43); VBG pO2 35 mmHg
[2021-08-06 10:42] LABS: Venous Blood Gas Refer to POC result
[2021-08-06 11:02] LABS: Anion Gap 11 (12-20); Blood Urea Nitrogen 30 mg/dL (9-16); Calcium 9.5 mg/dL (8.4-10.2); Chloride 95 mmol/L (96-108); Creatinine Clr Calc Pharmacy 108.5; Estimated Glomerular Filt Rate > 60; Glucose Random 280 mg/dL (60-115); Magnesium 2.2 mg/dL (1.6-2.6); Phosphorus 3.1 mg/dL (2.7-4.5); Potassium 5.1 mmol/L (3.3-5.1); Sodium 144 mmol/L (135-145)
[2021-08-06 11:03] LABS: Carbon Dioxide 43 mmol/L (22-29); SLIDE REVIEW VERIFIED
[2021-08-06 11:36] LABS: Glucose, Whole Blood 277 mg/dL (60-115)
--- NOTE | 2021-08-06 12:17 | MHC.CM.PN ---
Addendum entered by Nicole Mckeon 08/06/21 12:22: DP home with resumption of services. [employer] services will resume. Patient is in a Methadone program, will resume. The patients O2 is provided by [facility], [place]. Patient states that she will arrange for transportation. Original Note: Female 51 DX resp failure. Per MD rounds the patient is usually improves with BIPAP x2 days. She had a chest CT; which showed worsening infiltrates. Pulmonary is consulted. Dr Brito may need to perform a Bronch.
[2021-08-06 15:57] LABS: Glucose, Whole Blood 226 mg/dL (60-115)
[2021-08-06 20:26] LABS: Anti DNA DS Antibody <1 IU/mL; Antibody to SS-A Antigen <1.0 NEG AI (<1.0 NEG); Antibody to SS-B Antigen <1.0 NEG AI (<1.0 NEG)
[2021-08-06 20:54] LABS: Glucose, Whole Blood 335 mg/dL (60-115)
[2021-08-06] MEDS: Montelukast Sodium 10 MG TABLET PO (21:40)
[2021-08-06] MEDS: Atorvastatin Calcium 20 MG TABLET PO (21:40)
[2021-08-06] MEDS: Insulin Glargine,Hum.rec.anlog 100 UNIT/ML 10 ML VIAL 45 UNIT SUBCUT (21:41)
[2021-08-06 22:47] LABS: Strep Pneumo Ag urine Not Detected (Not Detected)
[2021-08-07] VITALS (12 sets, daily range): BP systolic 142–161; BP diastolic 65–90; PULSE 70–109; RESP 17–22; TEMP 36.4–37.3; O2SAT 91–100; BMI 37.5
[2021-08-07] MEDS: methylPREDNISolone Sod Succ 125 MG/2 ML VIAL 80 MG IVPUSH ×3 (02:09→18:29)
[2021-08-07] MEDS: Heparin Sodium,Porcine 5,000 UNIT/ML VIAL 5000 UNIT SUBCUT ×3 (05:55→23:37)
[2021-08-07] MEDS: Albuterol/Iprat 2.5/0.5MG 3 ML AMPUL.NEB INHALE ×2 (06:31→11:22)
[2021-08-07 06:57] LABS: Angiotensin Converting Enzyme 9.1 U/L (9-67)
[2021-08-07 07:11] LABS: Hematocrit 43.7 % (37.0-47.0); Hemoglobin 13.2 g/dl (12.0-16.0); Mean Corpuscular HGB Conc 30.2 g/dl (31.0-35.0); Mean Corpuscular Hemoglobin 29.8 pg (27.0-33.0); Mean Corpuscular Volume 98.6 fL (80.0-98.0); Mean Platelet Volume 9.4 fL (9.4-12.3); Platelet Count 272 X10*3/uL (160-400); Red Blood Count 4.43 X10*6/uL (4.20-5.50); Red Cell Distribution Width 13.6 % (11.0-16.0); White Blood Count 16.9 X10*3/uL (4.8-10.8)
[2021-08-07 07:42] LABS: Glucose, Whole Blood 169 mg/dL (60-115)
[2021-08-07 07:51] LABS: Anion Gap 15 (12-20); Blood Urea Nitrogen 30 mg/dL (9-16); Calcium 9.6 mg/dL (8.4-10.2); Carbon Dioxide 41 mmol/L (22-29); Chloride 97 mmol/L (96-108); Creatinine Clr Calc Pharmacy 117.1; Estimated Glomerular Filt Rate > 60; Glucose Random 170 mg/dL (60-115); Potassium 4.8 mmol/L (3.3-5.1); Sodium 148 mmol/L (135-145)
--- NOTE | 2021-08-07 08:34 | P.PNIM_ITS ---
Subjective Subjective Date of Service: 08/07/21 Interval History: Acute hypoxemic/hypercarbic respiratory failure secondary to COPD, uncontrolled htn,mild hypernatremia Review of Systems Shortness of breath seems improving slightly better than yesterday, still get exertion and short of breath Has cough Denies any chest pain or nausea vomiting or fever or chills. Physical Exam Vital Signs: Vital Signs: Last Vital Signs Temp 97.6 F 08/07/21 07:30 Pulse 103 H 08/07/21 07:30 Resp 18 08/07/21 07:30 BP 161/86 H 08/07/21 07:30 Pulse Ox 92 08/07/21 07:30 Oxygen Flow Rate 35 08/03/21 20:00 BMI result Body Mass Index 37.5 Appearance: Alert.? Oriented X3.sob with talking cvs: [id number], [id number] res: air entry tight, has b/l rhonchii abd: no rebound or guarding ,nt, bs present. ext pulses present , no cyanosis . neuro: axo3 , nonfocal Objective Data Active Medications Acetaminophen (Acetaminophen 325 Mg Tablet) 325 mg PO Q6H PRN PRN Reason: pain or fever Last Admin: 07/31/21 20:16 Dose: 325 mg Documented by: DAVE Albuterol/Ipratropium (Albuterol/Iprat 2.5/0.5mg 3 Ml Ampul.Neb) 3 ml INHALE Q4H PRN PRN Reason: for wheezing Last Admin: 08/07/21 06:31 Dose: 3 ml Documented by: TIO Atorvastatin Calcium (Atorvastatin Calcium 20 Mg Tablet) 20 mg PO BEDTIME [facility] Last Admin: 08/06/21 21:40 Dose: 20 mg Documented by: SCOTTY Dextrose (Dextrose 50 % 25 Gm/50 Ml Syringe) 25 gm IVPUSH Q15M PRN; Protocol PRN Reason: per Hypoglycemia Standing Ord. Dextrose (Dextrose 50 % 25 Gm/50 Ml Syringe) 25 gm IVPUSH Q15M PRN; Protocol PRN Reason: per Hypoglycemia Standing Ord. Diltiazem HCl (Diltiazem Hcl Cd 180 Mg Cap.Er.24h) 360 mg PO DAILY [facility]; Protocol Last Admin: 08/06/21 08:41 Dose: 360 mg Documented by: DOBROB Gabapentin (Gabapentin 100 Mg Capsule) 100 mg PO BID [facility] Last Admin: 08/06/21 21:40 Dose: 100 mg Documented by: SCOTTY Glucose (Glucose Gel 15 Gm Gel..Gram.) 15 gm PO Q15M PRN; Protocol PRN Reason: per Hypoglycemia Standing Ord. Glucose (Glucose Gel 15 Gm Gel..Gram.) 15 gm PO Q15M PRN; Protocol PRN Reason: per Hypoglycemia Standing Ord. Heparin Sodium (Porcine) (Heparin Sodium,Porcine 5,000 Unit/Ml Vial) 5,000 unit SUBCUT Q8H [facility] Last Admin: 08/07/21 05:55 Dose: 5,000 unit Documented by: SCOTTY Doxycycline Hyclate 100 mg/ (Sodium Chloride) 250 mls @ 166.67 mls/hr IV Q12H [facility] Last Infusion: 08/06/21 23:20 Dose: 0 mls/hr Documented by: SCOTTY Dextrose/Sodium Chloride (D51/2ns) 1,000 mls @ 80 mls/hr IVCONT .[id number] [facility] Insulin Glargine (Insulin Glargine,Hum.Rec.Anlog 100 Unit/Ml 10 Ml Vial) 45 unit SUBCUT BEDTIME [facility] Last Admin: 08/06/21 21:41 Dose: 45 unit Documented by: SCOTTY Insulin Human Lispro (Insulin Lispro 100 Unit/Ml 3 Ml Vial) 0 unit SUBCUT QID ACHS [facility]; Protocol Last Admin: 08/06/21 21:40 Dose: 10 unit Documented by: SCOTTY Lidocaine (Lidocaine 4 % Patch Adh..Patch) 1 patch TRANSDERMA DAILY [facility] Last Admin: 08/06/21 08:44 Dose: 1 patch Documented by: BROB Lisinopril (Lisinopril 40 Mg Tablet) 40 mg PO DAILY [facility]; Protocol Last Admin: 08/06/21 08:41 Dose: 40 mg Documented by: LOYD Loratadine (Loratadine 10 Mg Tablet) 10 mg PO DAILY [facility] Last Admin: 08/06/21 08:41 Dose: 10 mg Documented by: LOYD Methadone HCl (Methadone Hcl 20 Mg/2 Ml Oral.Conc) 50 mg PO DAILY [facility] Last Admin: 08/06/21 08:41 Dose: 50 mg Documented by: LOYD Methylprednisolone Sodium Succinate (Methylprednisolone Sod Succ 125 Mg/2 Ml Vial) 80 mg IVPUSH Q6H [facility] Last Admin: 08/07/21 02:09 Dose: 80 mg Documented by: ANDERM Montelukast Sodium (Montelukast Sodium 10 Mg Tablet) 10 mg PO BEDTIME [facility] Last Admin: 08/06/21 21:40 Dose: 10 mg Documented by: ANDERM Nicotine (Nicotine 21 Mg Patch.Td24) 21 mg TRANSDERMA DAILY [facility] Last Admin: 08/06/21 08:45 Dose: 21 mg Documented by: DOBROB Non-Formulary Medication (Arformoterol [Brovana]) 2 ml INHALE Q12H [facility] Non-Formulary Medication (Budesonide) 0.5 mg INHALE BID [facility] Ondansetron HCl (Ondansetron Hcl 4 Mg/2 Ml Vial) 4 mg IVPUSH Q8H PRN PRN Reason: Nausea Pharmacy Consult (Consult Rx Perform Med Rec) 1 each MISCELLANE ONCE PRN PRN Reason: Consult order Pharmacy Consult (Consult Rx Vancomycin Dosing) 1 each MISCELLANE DAILY PRN PRN Reason: Consult order Senna (Sennosides 8.6 Mg Tablet) 8.6 mg PO BEDTIME PRN PRN Reason: constipation Labs CBC & Chem 7: 08/07/21 06:26 08/07/21 06:26 Labs: Laboratory Results - last 24 hr 07/31/21 07/31/21 08/03/21 10:13 13:53 18:20 MCV MCH MCHC RDW Plt Count MPV Immature Gran % (Auto) Neut % (Auto) Lymph % (Auto) [place] % (Auto) Eos % (Auto) Baso % (Auto) Lymph # (Auto) [place] # (Auto) Eos # (Auto) Baso # (Auto) Abs Immat Gran (auto) Absolute Neuts (auto) Absolute Nucleated RBC Nucleated RBC % (auto) Smear Tech's Comments VBG pH VBG pCO2 VBG pO2 VBG HCO3 VBG O2 Saturation VBG Base Excess Anion Gap Estim Creat Clear Calc Estimated GFR POC Glucose Random Glucose Calcium Phosphorus Magnesium Angiotensin Convert Enz 9.1 SS-A/Ro Antibody <1.0 NEG SS-B/La Antibody <1.0 NEG Double Strand DNA Ab <1 Ur Strep pneumoniae Ag Not Detected 08/06/21 08/06/21 08/06/21 10:32 10:32 10:34 MCV 98.6 H MCH 30.0 MCHC 30.4 L RDW 13.7 Plt Count 260 MPV 9.3 L Immature Gran % (Auto) 1.0 H Neut % (Auto) 95.0 H Lymph % (Auto) 1.0 L [place] % (Auto) 2.9 Eos % (Auto) 0.0 Baso % (Auto) 0.1 Lymph # (Auto) 0.2 L [place] # (Auto) 0.5 Eos # (Auto) 0.0 Baso # (Auto) 0.0 Abs Immat Gran (auto) 0.18 H Absolute Neuts (auto) 16.3 H Absolute Nucleated RBC 0.000 Nucleated RBC % (auto) 0.0 Smear Tech's Comments VERIFIED VBG pH 7.38 VBG pCO2 86 VBG pO2 35 VBG HCO3 51 H VBG O2 Saturation 50.0 VBG Base Excess 20.9 Anion Gap 11 L Estim Creat Clear Calc 108.5 Estimated GFR > 60 POC Glucose Random Glucose 280 H Calcium 9.5 Phosphorus 3.1 Magnesium 2.2 Angiotensin Convert Enz SS-A/Ro Antibody SS-B/La Antibody Double Strand DNA Ab Ur Strep pneumoniae Ag 08/06/21 08/06/21 08/06/21 11:22 15:34 20:50 MCV MCH MCHC RDW Plt Count MPV Immature Gran % (Auto) Neut % (Auto) Lymph % (Auto) [place] % (Auto) Eos % (Auto) Baso % (Auto) Lymph # (Auto) [place] # (Auto) Eos # (Auto) Baso # (Auto) Abs Immat Gran (auto) Absolute Neuts (auto) Absolute Nucleated RBC Nucleated RBC % (auto) Smear Tech's Comments VBG pH VBG pCO2 VBG pO2 VBG HCO3 VBG O2 Saturation VBG Base Excess Anion Gap Estim Creat Clear Calc Estimated GFR POC Glucose 277 H 226 H 335 H Random Glucose Calcium Phosphorus Magnesium Angiotensin Convert Enz SS-A/Ro Antibody SS-B/La Antibody Double Strand DNA Ab Ur Strep pneumoniae Ag 08/07/21 08/07/21 08/07/21 06:26 06:26 07:31 MCV 98.6 H MCH 29.8 MCHC 30.2 L RDW 13.6 Plt Count 272 MPV 9.4 Immature Gran % (Auto) Neut % (Auto) Lymph % (Auto) [place] % (Auto) Eos % (Auto) Baso % (Auto) Lymph # (Auto) [place] # (Auto) Eos # (Auto) Baso # (Auto) Abs Immat Gran (auto) Absolute Neuts (auto) Absolute Nucleated RBC 0.000 Nucleated RBC % (auto) 0.0 Smear Tech's Comments VBG pH VBG pCO2 VBG pO2 VBG HCO3 VBG O2 Saturation VBG Base Excess Anion Gap 15 Estim Creat Clear Calc 117.1 Estimated GFR > 60 POC Glucose 169 H Random Glucose 170 H Calcium 9.6 Phosphorus Magnesium Angiotensin Convert Enz SS-A/Ro Antibody SS-B/La Antibody Double Strand DNA Ab Ur Strep pneumoniae Ag Assessment and Plan (1) Acute and chronic respiratory failure: Status: Acute (2) Pneumonitis: Status: Acute (3) COPD exacerbation: Status: Acute Plan 51-year-old lady with underlying morbid obesity, asthma/ COPD overlap syndrome, obesity hypoventilation, on 2 L of supplemental oxygen, nocturnal BiPAP hypoga mmaglobulinemia on IVIG, opioid dependence on methadone, diabetes mellitus, hypertension, admitted on 06/06/2021 with dyspnea and hypoxia requiring BiPAP support.? Acute on chronic hypoxic hypercapnic respiratory failure secondary to COPD exacerbation, CO2 retention, viral URI(human metapneumovirus) Responded well to BiPAP treatment in ICU(transferred from icu yesterday) abnormal CT Patient was getting treatment with nebs, steroids, BiPAP, antibiotics-was progressively getting worse suggested a went to ICU and received IV aminophylline as well as BiPAP there and seems to be improving. Discussed with ICU and Pulmonary repeat CT scan-noted . d/wpulm in detail ct scan.procalcitonin low For now continue IV steroid, neb, doxycycline day 4, BiPAP, care team added for anxiety . Traction alkalosis Secondary to hypoxic hypercapnic respiratory failure Follow BMP DM:?( previous admission in may-was on metformin/sliding scale) Fingersticks are running from 200-200 range Monitor fingersticks with sliding scale coverage. Hba1c levels ?Opioid dependence continue methadone Hypertension: ?continue Cardizem, lisinopril Controlled. Hypernatremia: Possibly related to decreased p.o. intake Encourage for adequate p.o. intake-free water 250 mL q.6. Also added D5 half NS-check sodium this afternoon, if trending down we will stop D5 half NS. Morbid obesity: Encouraged to cut down calories, consider outpatient bariatric evaluation. DVT PPX Lovenox Need for inpatient:? acute on chronic hypoxic hypercapnic respiratory failure secondary to COPD exacerbation, CO2 retention, viral URI. Quality Stroke Does the patient have a stroke diagnosis?: No VTE Prior VTE?: No VTE Risk Level:: Medical - moderate - high VTE Device Contraindication: N/A - Device Ordered VTE Drug Contraindication: N/A - Med Ordered
[2021-08-07] MEDS: Gabapentin 100 MG CAPSULE PO ×2 (08:49→21:45)
[2021-08-07] MEDS: lisinopriL 40 MG TABLET PO (08:49)
[2021-08-07] MEDS: Loratadine 10 MG TABLET PO (08:49)
[2021-08-07] MEDS: Nicotine 21 MG PATCH.TD24 TRANSDERMA (08:50)
[2021-08-07] MEDS: Insulin Lispro 100 UNIT/ML 3 ML VIAL SUBCUT ×4 (08:51→21:46)
[2021-08-07] MEDS: methADONE HCl 20 MG/2 ML ORAL.CONC 50 MG PO (08:51)
[2021-08-07] MEDS: Lidocaine 4 % Patch ADH..PATCH 1 PATCH TRANSDERMA (08:57)
[2021-08-07] MEDS: Dextrose 5 % and 0.45 % NaCl 1,000 ML 80 ML IVCONT (10:40)
[2021-08-07] MEDS: dilTIAZem HCL CD 180 MG CAP.ER.24H 360 MG PO (11:00)
[2021-08-07] MEDS: hydrALAZINE HCl 10 MG TABLET PO ×3 (11:00→21:45)
[2021-08-07] MEDS: Doxycycline Hyclate 100 MG in 0.9 % Sodium Chloride 250 ML 166.67 MG IV ×2 (11:02→23:30)
[2021-08-07 11:25] LABS: Glucose, Whole Blood 169 mg/dL (60-115)
[2021-08-07 13:37] LABS: Mitochondrial Antibodies NEGATIVE (NEGATIVE)
[2021-08-07 14:33] LABS: Sodium 144 mmol/L (135-145)
[2021-08-07 17:04] LABS: Glucose, Whole Blood 306 mg/dL (60-115)
[2021-08-07 20:45] LABS: Glucose, Whole Blood 275 mg/dL (60-115)
[2021-08-07] MEDS: Atorvastatin Calcium 20 MG TABLET PO (21:45)
[2021-08-07] MEDS: Montelukast Sodium 10 MG TABLET PO (21:45)
[2021-08-07] MEDS: Insulin Glargine,Hum.rec.anlog 100 UNIT/ML 10 ML VIAL 50 UNIT SUBCUT (21:45)
[2021-08-08] VITALS (9 sets, daily range): BP systolic 150–156; BP diastolic 67–83; PULSE 78–100; RESP 18–24; TEMP 36.2–36.7; O2SAT 92–100; BMI 37.0
[2021-08-08] MEDS: methylPREDNISolone Sod Succ 125 MG/2 ML VIAL 80 MG IVPUSH ×3 (01:40→20:54)
[2021-08-08] MEDS: Albuterol/Iprat 2.5/0.5MG 3 ML AMPUL.NEB INHALE ×4 (02:04→20:43)
[2021-08-08] MEDS: Heparin Sodium,Porcine 5,000 UNIT/ML VIAL 5000 UNIT SUBCUT ×2 (06:01→15:26)
[2021-08-08 07:22] LABS: Anion Gap 10 (12-20); Blood Urea Nitrogen 29 mg/dL (9-16); Calcium 9.1 mg/dL (8.4-10.2); Carbon Dioxide 42 mmol/L (22-29); Chloride 96 mmol/L (96-108); Creatinine Clr Calc Pharmacy 122.7; Estimated Glomerular Filt Rate > 60; Glucose Random 167 mg/dL (60-115); Potassium 4.5 mmol/L (3.3-5.1); Sodium 143 mmol/L (135-145)
[2021-08-08 07:31] LABS: Glucose, Whole Blood 146 mg/dL (60-115)
--- NOTE | 2021-08-08 08:35 | HO.PM.IMPN ---
Subjective Subjective Date of Service: 08/08/21 Interval History: Acute hypoxemic/hypercarbic respiratory failure secondary to COPD, uncontrolled htn,mild hypernatremia Review of Systems Shortness of breath seems improving slightly better than yesterday, still get exertion and short of breath Has cough Denies any chest pain or nausea vomiting or fever or chills. Physical Exam Vital Signs: Vital Signs: Last Vital Signs Temp 97.9 F 08/08/21 07:17 Pulse 89 08/08/21 07:17 Resp 19 08/08/21 07:17 BP 150/83 H 08/08/21 07:17 Pulse Ox 94 08/08/21 07:17 Oxygen Flow Rate 35 08/03/21 20:00 BMI result Body Mass Index 37.0 Appearance: Alert.? Oriented X3.sob with talking cvs: rrr, [id number] res: air entry tight, has b/l rhonchii abd: no rebound or guarding ,nt, bs present. ext pulses present , no cyanosis . neuro: axo3 , nonfocal Objective Data Active Medications Acetaminophen (Acetaminophen 325 Mg Tablet) 325 mg PO Q6H PRN PRN Reason: pain or fever Last Admin: 07/31/21 20:16 Dose: 325 mg Documented by: DAVE Albuterol/Ipratropium (Albuterol/Iprat 2.5/0.5mg 3 Ml Ampul.Neb) 3 ml INHALE RQ4H PRN PRN Reason: Shortness of Breath/Wheezing Last Admin: 08/08/21 02:04 Dose: 3 ml Documented by: BETH Atorvastatin Calcium (Atorvastatin Calcium 20 Mg Tablet) 20 mg PO BEDTIME [facility] Last Admin: 08/07/21 21:45 Dose: 20 mg Documented by: BRADY Dextrose (Dextrose 50 % 25 Gm/50 Ml Syringe) 25 gm IVPUSH Q15M PRN; Protocol PRN Reason: per Hypoglycemia Standing Ord. Dextrose (Dextrose 50 % 25 Gm/50 Ml Syringe) 25 gm IVPUSH Q15M PRN; Protocol PRN Reason: per Hypoglycemia Standing Ord. Diltiazem HCl (Diltiazem Hcl Cd 180 Mg Cap.Er.24h) 360 mg PO DAILY [facility]; Protocol Last Admin: 08/07/21 11:00 Dose: 360 mg Documented by: CASSY Gabapentin (Gabapentin 100 Mg Capsule) 100 mg PO BID [facility] Last Admin: 08/07/21 21:45 Dose: 100 mg Documented by: BRADY Glucose (Glucose Gel 15 Gm Gel..Gram.) 15 gm PO Q15M PRN; Protocol PRN Reason: per Hypoglycemia Standing Ord. Glucose (Glucose Gel 15 Gm Gel..Gram.) 15 gm PO Q15M PRN; Protocol PRN Reason: per Hypoglycemia Standing Ord. Heparin Sodium (Porcine) (Heparin Sodium,Porcine 5,000 Unit/Ml Vial) 5,000 unit SUBCUT Q8H [facility] Last Admin: 08/08/21 06:01 Dose: 5,000 unit Documented by: BRADY Hydralazine HCl (Hydralazine Hcl 10 Mg Tablet) 10 mg PO TID [facility]; Protocol Last Admin: 08/07/21 21:45 Dose: 10 mg Documented by: BRADY Doxycycline Hyclate 100 mg/ (Sodium Chloride) 250 mls @ 166.67 mls/hr IV Q12H [facility] Last Infusion: 08/08/21 01:45 Dose: 0 mls/hr Documented by: BRADY Insulin Glargine (Insulin Glargine,Hum.Rec.Anlog 100 Unit/Ml 10 Ml Vial) 50 unit SUBCUT BEDTIME [facility] Last Admin: 08/07/21 21:45 Dose: 50 unit Documented by: BRADY Insulin Human Lispro (Insulin Lispro 100 Unit/Ml 3 Ml Vial) 0 unit SUBCUT QIDACHS [facility]; Protocol Last Admin: 08/07/21 21:46 Dose: 8 unit Documented by: BRADY Lidocaine (Lidocaine 4 % Patch Adh..Patch) 1 patch TRANSDERMA DAILY [facility] Last Admin: 08/07/21 08:57 Dose: 1 patch Documented by: CASSY Lisinopril (Lisinopril 40 Mg Tablet) 40 mg PO DAILY [facility]; Protocol Last Admin: 08/07/21 08:49 Dose: 40 mg Documented by: CASSY Loratadine (Loratadine 10 Mg Tablet) 10 mg PO DAILY [facility] Last Admin: 08/07/21 08:49 Dose: 10 mg Documented by: CASSY Methadone HCl (Methadone Hcl 20 Mg/2 Ml Oral.Conc) 50 mg PO DAILY [facility] Last Admin: 08/07/21 08:51 Dose: 50 mg Documented by: CASSY Methylprednisolone Sodium Succinate (Methylprednisolone Sod Succ 125 Mg/2 Ml Vial) 80 mg IVPUSH Q8H [facility] Last Admin: 08/08/21 01:40 Dose: 80 mg Documented by: BRADY Montelukast Sodium (Montelukast Sodium 10 Mg Tablet) 10 mg PO BEDTIME [facility] Last Admin: 08/07/21 21:45 Dose: 10 mg Documented by: BRADY Nicotine (Nicotine 21 Mg Patch.Td24) 21 mg TRANSDERMA DAILY [facility] Last Admin: 08/07/21 08:50 Dose: 21 mg Documented by: CASSY Ondansetron HCl (Ondansetron Hcl 4 Mg/2 Ml Vial) 4 mg IVPUSH Q8H PRN PRN Reason: Nausea Pharmacy Consult (Consult Rx Perform Med Rec) 1 each MISCELLANE ONCE PRN PRN Reason: Consult order Pharmacy Consult (Consult Rx Vancomycin Dosing) 1 each MISCELLANE DAILY PRN PRN Reason: Consult order Senna (Sennosides 8.6 Mg Tablet) 8.6 mg PO BEDTIME PRN PRN Reason: constipation Labs CBC & Chem 7: 08/07/21 06:26 08/08/21 06:33 Labs: Laboratory Results - last 24 hr 08/03/21 08/07/21 08/07/21 18:20 11:10 17:00 Anion Gap Estim Creat Clear Calc Estimated GFR POC Glucose 169 H 306 H Random Glucose Calcium Anti-Mitochondrial Ab NEGATIVE 08/07/21 08/08/21 08/08/21 20:40 06:33 07:19 Anion Gap 10 L Estim Creat Clear Calc 122.7 Estimated GFR > 60 POC Glucose 275 H 146 H Random Glucose 167 H Calcium 9.1 Anti-Mitochondrial Ab Assessment and Plan (1) Acute and chronic respiratory failure: Status: Acute (2) Viral syndrome: Status: Acute Plan 51-year-old lady with underlying morbid obesity, asthma/ COPD overlap syndrome, obesity hypoventilation, on 2 L of supplemental oxygen, nocturnal BiPAP hypogammaglobulinemia on IVIG, opioid dependence on methadone, diabetes mellitus, hypertension, admitted on 06/06/2021 with dyspnea and hypoxia requiring BiPAP support.? Acute on chronic hypoxic hypercapnic respiratory failure secondary to COPD exacerbation, CO2 retention, viral URI(human metapneumovirus) Responded well to BiPAP treatment in ICU(transferred from icu yesterday) abnormal CT Patient was getting treatment with nebs, steroids, BiPAP, antibiotics-was progressively getting worse suggested a went to ICU and received IV aminophylline as well as BiPAP there and seems to be improving. Discussed with ICU and Pulmonary repeat CT scan-noted . d/wpulm in detail ct scan.procalcitonin low For now continue IV steroid, neb, doxycycline day 5, BiPAP Traction alkalosis Secondary to hypoxic hypercapnic respiratory failure Follow BMP DM:?( previous admission in may-was on metformin/sliding scale) Fingersticks are running from 200-200 range Monitor fingersticks with sliding scale coverage. Hba1c levels ?Opioid dependence continue methadone Hypertension: ?continue Cardizem, lisinopril Controlled. Hypernatremia:? Possibly related to decreased p.o. intake Encourage for adequate p.o. intake-free water 250 mL q.6. improed , off fluids. Morbid obesity: Encouraged to cut down calories, consider outpatient bariatric evaluation. DVT PPX Lovenox Need for inpatient:? acute on chronic hypoxic hypercapnic respiratory failure secondary to COPD exacerbation, CO2 retention, viral URI. Quality Stroke Does the patient have a stroke diagnosis?: No VTE Prior VTE?: No VTE Risk Level:: Medical - moderate - high VTE Device Contraindication: N/A - Device Ordered VTE Drug Contraindication: N/A - Med Ordered
[2021-08-08] MEDS: methADONE HCl 20 MG/2 ML ORAL.CONC 50 MG PO (09:44)
[2021-08-08] MEDS: dilTIAZem HCL CD 180 MG CAP.ER.24H 360 MG PO (09:45)
[2021-08-08] MEDS: hydrALAZINE HCl 10 MG TABLET PO ×3 (09:46→20:54)
[2021-08-08] MEDS: Loratadine 10 MG TABLET PO (09:46)
[2021-08-08] MEDS: Gabapentin 100 MG CAPSULE PO ×2 (09:46→20:54)
--- NOTE | 2021-08-08 09:46 | MHC.CM.PN ---
Female 51 DX Viral URI Lives at home. She used BIPAP yesterday afternoon thru the night. Patient currently on 5L O2 via [place]. DP is home with resumption of [facility] services and transport. Patient is on Methadone; which is provided by [facility]. CM will follow for a change in needs and final dispo.
[2021-08-08] MEDS: lisinopriL 40 MG TABLET PO (09:47)
[2021-08-08] MEDS: Nicotine 21 MG PATCH.TD24 TRANSDERMA (09:49)
[2021-08-08 11:23] LABS: Glucose, Whole Blood 268 mg/dL (60-115)
--- NOTE | 2021-08-08 12:11 | P.CDIC_ITS ---
CDI Concurrent Query Documentation Clarification: PHYSICIAN'S DOCUMENTATION REQUEST Date of Query: 08/08/21 1212 Patient Name: Anju Larios Admit Date: 07/30/21 Dear Doctor, A review of the medical record indicates additional documentation may be needed. Please review below and update the documentation accordingly. Clinical Indicators: Risk Factors/Clinical Indicators/Treatments Diabetes mellitus type 2 POC glucose 5/24 - 306 H Humalog Fingersticks running from 200-200 Monitor, Hba1c levels Please clarify the following regarding Diabetes Mellitus (DM): * Hypoglycemia * Hyperglycemia * Uncontrolled or other * No complications of DM * Other complication ? please specify * Unable to determine Use of terms such as suspected, likely, concern for, or probable (associated with a specific diagnosis that is being evaluated, monitored, or treated as if it exists) are acceptable and can be coded in the inpatient setting, when documented at the time of discharge. Thank you, Daina Silva [facility], CDIS Extension: [phone] Please use your independent medical judgment in providing your response. THIS QUERY IS PART OF THE PERMANENT MEDICAL RECORD Provider Response: Other Other Diagnosis: dm with hyperglycemia
[2021-08-08] MEDS: Insulin Lispro 100 UNIT/ML 3 ML VIAL SUBCUT ×3 (12:17→20:54)
[2021-08-08] MEDS: Doxycycline Hyclate 100 MG in 0.9 % Sodium Chloride 250 ML 166.67 MG IV (12:18)
[2021-08-08 14:02] LABS: Smooth Muscle Antibody <20 U (<20)
[2021-08-08 16:35] LABS: Glucose, Whole Blood 172 mg/dL (60-115)
[2021-08-08 19:58] LABS: Glucose, Whole Blood 189 mg/dL (60-115)
[2021-08-08] MEDS: Montelukast Sodium 10 MG TABLET PO (20:54)
[2021-08-08] MEDS: Atorvastatin Calcium 20 MG TABLET PO (20:54)
[2021-08-08] MEDS: Insulin Glargine,Hum.rec.anlog 100 UNIT/ML 10 ML VIAL 50 UNIT SUBCUT (20:54)
[2021-08-09] VITALS (12 sets, daily range): BP systolic 142–195; BP diastolic 79–91; PULSE 77–98; RESP 16–22; TEMP 36.4–37.3; O2SAT 93–99
[2021-08-09] MEDS: Doxycycline Hyclate 100 MG in 0.9 % Sodium Chloride 250 ML 166.67 MG IV ×3 (00:04→23:31)
[2021-08-09] MEDS: Heparin Sodium,Porcine 5,000 UNIT/ML VIAL 5000 UNIT SUBCUT ×4 (00:05→23:30)
[2021-08-09 07:45] LABS: Glucose, Whole Blood 283 mg/dL (60-115)
[2021-08-09] MEDS: Albuterol/Iprat 2.5/0.5MG 3 ML AMPUL.NEB INHALE ×4 (07:56→21:20)
[2021-08-09] MEDS: methADONE HCl 20 MG/2 ML ORAL.CONC 50 MG PO (08:14)
[2021-08-09] MEDS: dilTIAZem HCL CD 180 MG CAP.ER.24H 360 MG PO (08:15)
[2021-08-09] MEDS: lisinopriL 40 MG TABLET PO (08:16)
[2021-08-09] MEDS: Loratadine 10 MG TABLET PO (08:16)
[2021-08-09] MEDS: Gabapentin 100 MG CAPSULE PO ×2 (08:17→20:26)
[2021-08-09] MEDS: hydrALAZINE HCl 10 MG TABLET PO ×3 (08:17→20:26)
[2021-08-09] MEDS: Insulin Lispro 100 UNIT/ML 3 ML VIAL SUBCUT ×4 (08:17→20:24)
[2021-08-09] MEDS: methylPREDNISolone Sod Succ 125 MG/2 ML VIAL 80 MG IVPUSH ×2 (08:19→20:27)
[2021-08-09] MEDS: Nicotine 21 MG PATCH.TD24 TRANSDERMA (08:20)
[2021-08-09] MEDS: Lidocaine 4 % Patch ADH..PATCH 1 PATCH TRANSDERMA (08:26)
[2021-08-09 11:41] LABS: Glucose, Whole Blood 213 mg/dL (60-115)
--- NOTE | 2021-08-09 14:13 | P.PNPL_ITS ---
Subjective Subjective Date of Service: 08/09/21 Interval history: With slow incremental improvement, now with worsening lower extremity edema and persistent hypoxia. Objective Data Labs CBC & Chem 7: 08/07/21 06:26 08/08/21 06:33 Labs: Laboratory Results - last 24 hr 08/03/21 08/08/21 08/08/21 18:20 16:26 19:54 POC Glucose 172 H 189 H Mitochondrial AB Titer TNP 08/09/21 08/09/21 07:32 11:32 POC Glucose 283 H 213 H Mitochondrial AB Titer Microbiology Microbiology Results: Microbiology 07/30/21 09:37 Blood - Venous Blood Culture - Final No growth after 5 days. 07/30/21 09:37 Blood - Venous Blood Culture - Final No growth after 5 days. Review of Systems Cardiovascular: Reports leg edema and Reports dyspnea on exertion Respiratory: Reports dyspnea on exertion and Denies wheezing Allergic/Immunologic: Denies wheezing Physical Exam Vital Signs: Vital Signs: Last Vital Signs Temp 98.6 F 08/09/21 11:35 Pulse 92 08/09/21 12:06 Resp 22 H 08/09/21 12:06 BP 142/80 H 08/09/21 11:35 Pulse Ox 95 08/09/21 11:35 Oxygen Flow Rate 35 08/03/21 20:00 BMI result Body Mass Index 37.0 Const: General: no acute distress, alert and awake Nutritional Appearance: obese Eyes: Sclerae: sclerae normal EOM: EOMs intact bilaterally Neck: Neck: Yes no lymphadenopathy, Yes trachea midline and Yes supple Resp: Effort & Inspection: normal respiratory effort and no respiratory dist ress Auscultation: crackles ( Bibasilar) and wheezes Cardio: Rate: regular rate Rhythm: regular rhythm Heart sounds: no gallops, no murmurs and no rubs GI: Palpation (GI): Soft to palpation and Other GI palpation findings present ( Nontender) Auscultation: normal bowel sounds Extrem: General: No clubbing, No cyanosis and Yes edema (1+ bilateral) Procedures Date of Service Date of Service: 08/09/21 Assessment and Plan Assessment and plan (1) Acute on chronic respiratory failure with hypoxia and hypercapnia: Status: Acute (2) COPD exacerbation: Status: Acute (3) Pulmonary edema: Status: Acute Plan Impression: 51-year-old lady with underlying chronic hypercapnic respiratory failure admitted with shortness of breath secondary to acute exacerbation of her underlying COPD initially requiring BiPAP support, now titrated of BiPAP, but still significant months supplemental oxygen and with development of worsening lower extremity edema. Recommendations: Agree with systemic glucocorticoids and nebulized bronchodilators. Consider starting acetazolamide 500 mg twice a day for next 3- 4 days to improve CO2 retention and pulmonary edema. Time Spent With Patient Time: Total time spent is greater than 50% in coordination of care (as documented) at patient's floor/unit and/or counseling patient: Progress Note: Quality Stroke Does the patient have a stroke diagnosis?: No
[2021-08-09] MEDS: acetaZOLAMIDE 250 MG TABLET 500 MG PO ×2 (14:48→20:26)
[2021-08-09 16:00] LABS: Glucose, Whole Blood 283 mg/dL (60-115)
--- NOTE | 2021-08-09 16:31 | P.PNIM_ITS ---
Subjective Subjective Date of Service: 08/09/21 Interval History: Acute hypoxemic/hypercarbic respiratory failure secondary to COPD, uncontrolled htn Review of Systems Shortness of breath seems similar to yesterday. Has mild leg edema Denies any chest pain abdominal pain or fever or chills . Dry cough. Physical Exam Vital Signs: Vital Signs: Last Vital Signs Temp 99.1 F 08/09/21 15:28 Pulse 84 08/09/21 15:47 Resp 16 08/09/21 15:47 BP 166/79 H 08/09/21 15:28 Pulse Ox 95 08/09/21 15:28 Oxygen Flow Rate 35 08/03/21 20:00 BMI result Body Mass Index 37.0 Appearance: Alert.? Oriented X3.sob ,talking in small sentences. cvs: rrr, [id number] res: air entry tight, has b/l rhonchii abd: no rebound or guarding ,nt, bs present. ext pulses present , no cyanosis . neuro: axo3 , nonfocal Objective Data Active Medications Acetaminophen (Acetaminophen 325 Mg Tablet) 325 mg PO Q6H PRN PRN Reason: pain or fever Last Admin: 07/31/21 20:16 Dose: 325 mg Documented by: DAVE Acetazolamide (Acetazolamide 250 Mg Tablet) 500 mg PO BID [facility] Last Admin: 08/09/21 14:48 Dose: 500 mg Documented by: EMETERIO Albuterol/Ipratropium (Albuterol/Iprat 2.5/0.5mg 3 Ml Ampul.Neb) 3 ml INHALE RQ4H PRN PRN Reason: Shortness of Breath/Wheezing Last Admin: 08/08/21 02:04 Dose: 3 ml Documented by: BETH Albuterol/Ipratropium (Albuterol/Iprat 2.5/0.5mg 3 Ml Ampul.Neb) 3 ml INHALE RQ4H WHILE AWAKE [facility] Last Admin: 08/09/21 15:46 Dose: 3 ml Documented by: JAYE Atorvastatin Calcium (Atorvastatin Calcium 20 Mg Tablet) 20 mg PO BEDTIME [facility] Last Admin: 08/08/21 20:54 Dose: 20 mg Documented by: ANTOIC Dextrose (Dextrose 50 % 25 Gm/50 Ml Syringe) 25 gm IVPUSH Q15M PRN; Protocol PRN Reason: per Hypoglycemia Standing Ord. Dextrose (Dextrose 50 % 25 Gm/50 Ml Syringe) 25 gm IVPUSH Q15M PRN; Protocol PRN Reason: per Hypoglycemia Standing Ord. Diltiazem HCl (Diltiazem Hcl Cd 180 Mg Cap.Er.24h) 360 mg PO DAILY [facility]; Protocol Last Admin: 08/09/21 08:15 Dose: 360 mg Documented by: EMETERIO Gabapentin (Gabapentin 100 Mg Capsule) 100 mg PO BID [facility] Last Admin: 08/09/21 08:17 Dose: 100 mg Documented by: EMETERIO Glucose (Glucose Gel 15 Gm Gel..Gram.) 15 gm PO Q15M PRN; Protocol PRN Reason: per Hypoglycemia Standing Ord. Glucose (Glucose Gel 15 Gm Gel..Gram.) 15 gm PO Q15M PRN; Protocol PRN Reason: per Hypoglycemia Standing Ord. Heparin Sodium (Porcine) (Heparin Sodium,Porcine 5,000 Unit/Ml Vial) 5,000 unit SUBCUT Q8H [facility] Last Admin: 08/09/21 14:49 Dose: 5,000 unit Documented by: EMETERIO Hydralazine HCl (Hydralazine Hcl 10 Mg Tablet) 10 mg PO TID [facility]; Protocol Last Admin: 08/09/21 14:49 Dose: 10 mg Documented by: EMETERIO Doxycycline Hyclate 100 mg/ (Sodium Chloride) 250 mls @ 166.67 mls/hr IV Q12H [facility] Last Admin: 08/09/21 12:16 Dose: 166.67 mls/hr Documented by: EMETERIO Insulin Glargine (Insulin Glargine,Hum.Rec.Anlog 100 Unit/Ml 10 Ml Vial) 50 unit SUBCUT BEDTIME [facility] Last Admin: 08/08/21 20:54 Dose: 50 unit Documented by: ACRIDAD Insulin Human Lispro (Insulin Lispro 100 Unit/Ml 3 Ml Vial) 0 unit SUBCUT QIDACHS [facility]; Protocol Last Admin: 08/09/21 12:13 Dose: 6 unit Documented by: EMETERIO Lidocaine (Lidocaine 4 % Patch Adh..Patch) 1 patch TRANSDERMA DAILY [facility] Last Admin: 08/09/21 08:26 Dose: 1 patch Documented by: EMETERIO Lisinopril (Lisinopril 40 Mg Tablet) 40 mg PO DAILY [facility]; Protocol Last Admin: 08/09/21 08:16 Dose: 40 mg Documented by: EMETERIO Loratadine (Loratadine 10 Mg Tablet) 10 mg PO DAILY [facility] Last Admin: 08/09/21 08:16 Dose: 10 mg Documented by: EMETERIO Methadone HCl (Methadone Hcl 20 Mg/2 Ml Oral.Conc) 50 mg PO DAILY [facility] Last Admin: 08/09/21 08:14 Dose: 50 mg Documented by: EMETERIO Methylprednisolone Sodium Succinate (Methylprednisolone Sod Succ 125 Mg/2 Ml Vial) 80 mg IVPUSH Q12H [facility] Last Admin: 08/09/21 08:19 Dose: 80 mg Documented by: EMETERIO Montelukast Sodium (Montelukast Sodium 10 Mg Tablet) 10 mg PO BEDTIME [facility] Last Admin: 08/08/21 20:54 Dose: 10 mg Documented by: ANTOIC Nicotine (Nicotine 21 Mg Patch.Td24) 21 mg TRANSDERMA DAILY [facility] Last Admin: 08/09/21 08:20 Dose: 21 mg Documented by: EMETERIO Ondansetron HCl (Ondansetron Hcl 4 Mg/2 Ml Vial) 4 mg IVPUSH Q8H PRN PRN Reason: Nausea Pharmacy Consult (Consult Rx Perform Med Rec) 1 each MISCELLANE ONCE PRN PRN Reason: Consult order Pharmacy Consult (Consult Rx Vancomycin Dosing) 1 each MISCELLANE DAILY PRN PRN Reason: Consult order Senna (Sennosides 8.6 Mg Tablet) 8.6 mg PO BEDTIME PRN PRN Reason: constipation Labs CBC & Chem 7: 08/07/21 06:26 08/08/21 06:33 Labs: Laboratory Results - last 24 hr 08/03/21 08/08/21 08/08/21 18:20 16:26 19:54 POC Glucose 172 H 189 H Mitochondrial AB Titer TNP 08/09/21 08/09/21 08/09/21 07:32 11:32 15:56 POC Glucose 283 H 213 H 283 H Mitochondrial AB Titer Assessment and Plan (1) Acute and chronic respiratory failure: Status: Acute (2) Status asthmaticus with COPD (chronic obstructive pulmonary disease): Status: Acute Plan 51-year-old lady with underlying morbid obesity, asthma/ COPD overlap syndrome, obesity hypoventilation, on 2 L of supplemental oxygen, nocturnal BiPAP hypogammaglobulinemia on IVIG, opioid dependence on methadone, diabetes mellitus, hypertension, admitted on 06/06/2021 with dyspnea and hypoxia requiring BiPAP support.? Acute on chronic hypoxic hypercapnic respiratory failure secondary to COPD exacerbation, CO2 retention, viral URI(human metapneumovirus) Responded well to BiPAP treatment in ICU(transferred from icu yesterday) abnormal CT Patient was getting treatment with nebs, steroids, BiPAP, antibiotics-was progressively getting worse suggested a went to ICU and received IV aminophylline as well as BiPAP there and seems to be improving. Discussed with ICU and Pulmonary repeat CT scan-noted . d/wpulm in detail ct scan.procalcitonin low For now continue IV steroid, neb, doxycycline day 5, BiPAP, added dimox . Traction alkalosis Secondary to hypoxic hypercapnic respiratory failure Follow BMP DM:?( previous admission in may-was on metformin/sliding scale) Fingersticks are running from 180-220range Monitor fingersticks with sliding scale coverage adjusted . Hba1c levels 6.9 ?Opioid dependence continue methadone Hypertension: ?continue Cardizem, lisinopril Controlled. Hypernatremia:? Possibly related to decreased p.o. intake Encourage for adequate p.o. intake-free water 250 mL q.6. improed , off fluids. Morbid obesity: Encouraged to cut down calories, consider outpatient bariatric evaluation. DVT PPX Lovenox Need for inpatient:? acute on chronic hypoxic hypercapnic respiratory failure secondary to COPD exacerbation, CO2 retention, viral URI. Quality Stroke Does the patient have a stroke diagnosis?: No VTE Prior VTE?: No VTE Risk Level:: Medical - moderate - high VTE Device Contraindication: N/A - Device Ordered VTE Drug Contraindication: N/A - Med Ordered
[2021-08-09 19:58] LABS: Glucose, Whole Blood 209 mg/dL (60-115)
[2021-08-09] MEDS: Insulin Glargine,Hum.rec.anlog 100 UNIT/ML 10 ML VIAL 55 UNIT SUBCUT (20:25)
[2021-08-09] MEDS: Atorvastatin Calcium 20 MG TABLET PO (20:26)
[2021-08-09] MEDS: Montelukast Sodium 10 MG TABLET PO (20:26)
[2021-08-10] VITALS (13 sets, daily range): BP systolic 140–183; BP diastolic 75–92; PULSE 67–105; RESP 15–24; TEMP 36.7–37.1; O2SAT 85–98
[2021-08-10 07:17] LABS: B Type Natriuretic Peptide 26 pg/mL (<100)
[2021-08-10 07:26] LABS: Glucose, Whole Blood 163 mg/dL (60-115)
[2021-08-10] MEDS: Albuterol/Iprat 2.5/0.5MG 3 ML AMPUL.NEB INHALE ×4 (08:33→19:27)
[2021-08-10] MEDS: Nicotine 21 MG PATCH.TD24 TRANSDERMA (08:47)
[2021-08-10] MEDS: Heparin Sodium,Porcine 5,000 UNIT/ML VIAL 5000 UNIT SUBCUT ×3 (08:47→22:10)
[2021-08-10] MEDS: Insulin Lispro 100 UNIT/ML 3 ML VIAL SUBCUT ×3 (08:47→22:11)
[2021-08-10] MEDS: acetaZOLAMIDE 250 MG TABLET 500 MG PO ×2 (08:48→22:11)
[2021-08-10] MEDS: methylPREDNISolone Sod Succ 125 MG/2 ML VIAL 80 MG IVPUSH ×2 (08:48→22:10)
[2021-08-10] MEDS: Lidocaine 4 % Patch ADH..PATCH 1 PATCH TRANSDERMA (08:48)
[2021-08-10] MEDS: dilTIAZem HCL CD 180 MG CAP.ER.24H 360 MG PO (08:48)
[2021-08-10] MEDS: methADONE HCl 20 MG/2 ML ORAL.CONC 50 MG PO (08:48)
[2021-08-10] MEDS: lisinopriL 40 MG TABLET PO (08:49)
[2021-08-10] MEDS: Gabapentin 100 MG CAPSULE PO ×2 (08:49→22:12)
[2021-08-10] MEDS: Loratadine 10 MG TABLET PO (08:49)
[2021-08-10] MEDS: hydrALAZINE HCl 10 MG TABLET PO ×3 (08:49→22:12)
[2021-08-10 08:54] LABS: Anion Gap 10 (12-20); Blood Urea Nitrogen 22 mg/dL (9-16); Calcium 9.4 mg/dL (8.4-10.2); Carbon Dioxide 36 mmol/L (22-29); Chloride 98 mmol/L (96-108); Creatinine Clr Calc Pharmacy 118.4; Estimated Glomerular Filt Rate > 60; Glucose Random 153 mg/dL (60-115); Potassium 4.2 mmol/L (3.3-5.1); Sodium 140 mmol/L (135-145)
--- NOTE | 2021-08-10 09:02 | P.PNIM_ITS ---
Subjective Subjective Date of Service: 08/10/21 Interval History: copd excerebation, Review of Systems sob similar , still talking with short sentences and still has exertional short of breath. Has dry cough Denies any fever or chills or nausea or vomiting. Physical Exam Vital Signs: Vital Signs: Last Vital Signs Temp 98.1 F 08/10/21 07:17 Pulse 80 08/10/21 08:37 Resp 20 08/10/21 08:37 BP 170/92 H 08/10/21 07:17 Pulse Ox 95 08/10/21 07:17 Oxygen Flow Rate 35 08/03/21 20:00 BMI result Body Mass Index 37.0 Appearance: Alert.? Oriented X3.still sob ,talking in small sentences. cvs: rrr, [id number] res: air entry tight, has b/l rhonchii abd: no rebound or guarding ,nt, bs present. ext pulses present , no cyanosis . neuro: axo3 , nonfocal Objective Data Active Medications Acetaminophen (Acetaminophen 325 Mg Tablet) 325 mg PO Q6H PRN PRN Reason: pain or fever Last Admin: 07/31/21 20:16 Dose: 325 mg Documented by: DAVE Acetazolamide (Acetazolamide 250 Mg Tablet) 500 mg PO BID [facility] Last Admin: 08/10/21 08:48 Dose: 500 mg Documented by: CARYN Albuterol/Ipratropium (Albuterol/Iprat 2.5/0.5mg 3 Ml Ampul.Neb) 3 ml INHALE RQ4H PRN PRN Reason: Shortness of Breath/Wheezing Last Admin: 08/08/21 02:04 Dose: 3 ml Documented by: BETH Albuterol/Ipratropium (Albuterol/Iprat 2.5/0.5mg 3 Ml Ampul.Neb) 3 ml INHALE RQ4H WHILE AWAKE [facility] Last Admin: 08/10/21 08:33 Dose: 3 ml Documented by: RIMA Atorvastatin Calcium (Atorvastatin Calcium 20 Mg Tablet) 20 mg PO BEDTIME [facility] Last Admin: 08/09/21 20:26 Dose: 20 mg Documented by: GLORIA Dextrose (Dextrose 50 % 25 Gm/50 Ml Syringe) 25 gm IVPUSH Q15M PRN; Protocol PRN Reason: per Hypoglycemia Standing Ord. Dextrose (Dextrose 50 % 25 Gm/50 Ml Syringe) 25 gm IVPUSH Q15M PRN; Protocol PRN Reason: per Hypoglycemia Standing Ord. Diltiazem HCl (Diltiazem Hcl Cd 180 Mg Cap.Er.24h) 360 mg PO DAILY [facility]; Protocol Last Admin: 08/10/21 08:48 Dose: 360 mg Documented by: CARYN Gabapentin (Gabapentin 100 Mg Capsule) 100 mg PO BID [facility] Last Admin: 08/10/21 08:49 Dose: 100 mg Documented by: CARYN Glucose (Glucose Gel 15 Gm Gel..Gram.) 15 gm PO Q15M PRN; Protocol PRN Reason: per Hypoglycemia Standing Ord. Glucose (Glucose Gel 15 Gm Gel..Gram.) 15 gm PO Q15M PRN; Protocol PRN Reason: per Hypoglycemia Standing Ord. Heparin Sodium (Porcine) (Heparin Sodium,Porcine 5,000 Unit/Ml Vial) 5,000 unit SUBCUT Q8H [facility] Last Admin: 08/10/21 08:47 Dose: 5,000 unit Documented by: CARYN Hydralazine HCl (Hydralazine Hcl 10 Mg Tablet) 10 mg PO TID [facility]; Protocol Last Admin: 08/10/21 08:49 Dose: 10 mg Documented by: CARYN Doxycycline Hyclate 100 mg/ (Sodium Chloride) 250 mls @ 166.67 mls/hr IV Q12H [facility] Last Infusion: 08/10/21 01:01 Dose: 0 mls/hr Documented by: GLORIA Insulin Glargine (Insulin Glargine,Hum.Rec.Anlog 100 Unit/Ml 10 Ml Vial) 55 unit SUBCUT BEDTIME [facility] Last Admin: 08/09/21 20:25 Dose: 55 unit Documented by: GLORIA Insulin Human Lispro (Insulin Lispro 100 Unit/Ml 3 Ml Vial) 0 unit SUBCUT QIDACHS [facility]; Protocol Last Admin: 08/10/21 08:47 Dose: 2 unit Documented by: CARYN Lidocaine (Lidocaine 4 % Patch Adh..Patch) 1 patch TRANSDERMA DAILY [facility] Last Admin: 08/10/21 08:48 Dose: 1 patch Documented by: CARYN Lisinopril (Lisinopril 40 Mg Tablet) 40 mg PO DAILY [facility]; Protocol Last Admin: 08/10/21 08:49 Dose: 40 mg Documented by: CARYN Loratadine (Loratadine 10 Mg Tablet) 10 mg PO DAILY [facility] Last Admin: 08/10/21 08:49 Dose: 10 mg Documented by: CARYN Methadone HCl (Methadone Hcl 20 Mg/2 Ml Oral.Conc) 50 mg PO DAILY [facility] Last Admin: 08/10/21 08:48 Dose: 50 mg Documented by: CARYN Methylprednisolone Sodium Succinate (Methylprednisolone Sod Succ 125 Mg/2 Ml Vial) 80 mg IVPUSH Q12H [facility] Last Admin: 08/10/21 08:48 Dose: 80 mg Documented by: CARYN Montelukast Sodium (Montelukast Sodium 10 Mg Tablet) 10 mg PO BEDTIME [facility] Last Admin: 08/09/21 20:26 Dose: 10 mg Documented by: GLORIA Nicotine (Nicotine 21 Mg Patch.Td24) 21 mg TRANSDERMA DAILY [facility] Last Admin: 08/10/21 08:47 Dose: 21 mg Documented by: CARYN Ondansetron HCl (Ondansetron Hcl 4 Mg/2 Ml Vial) 4 mg IVPUSH Q8H PRN PRN Reason: Nausea Pharmacy Consult (Consult Rx Perform Med Rec) 1 each MISCELLANE ONCE PRN PRN Reason: Consult order Pharmacy Consult (Consult Rx Vancomycin Dosing) 1 each MISCELLANE DAILY PRN PRN Reason: Consult order Senna (Sennosides 8.6 Mg Tablet) 8.6 mg PO BEDTIME PRN PRN Reason: constipation Labs CBC & Chem 7: 08/07/21 06:26 08/10/21 08:29 Labs: Laboratory Results - last 24 hr 08/09/21 08/09/21 08/09/21 11:32 15:56 19:45 Anion Gap Estim Creat Clear Calc Estimated GFR POC Glucose 213 H 283 H 209 H Random Glucose Calcium B-Natriuretic Peptide 08/10/21 08/10/21 08/10/21 06:03 07:16 08:29 Anion Gap 10 L Estim Creat Clear Calc 118.4 Estimated GFR > 60 POC Glucose 163 H Random Glucose 153 H Calcium 9.4 B-Natriuretic Peptide 26 Assessment and Plan (1) Acute and chronic respiratory failure: Status: Acute Plan 51-year-old lady with underlying morbid obesity, asthma/ COPD overlap syndrome, obesity hypoventilation, on 2 L of supplemental oxygen, nocturnal BiPAP hypogammaglobulinemia on IVIG, opioid dependence on methadone, diabetes mellitus, hypertension, admitted on 06/06/2021 with dyspnea and hypoxia requiring BiPAP support.? Acute on chronic hypoxic hypercapnic respiratory failure secondary to COPD exacerbation, CO2 retention, viral URI(human metapneumovirus),also edema Responded well to BiPAP treatment in ICU(transferred from icu yesterday) abnormal CT Patient was getting treatment with nebs, steroids, BiPAP, antibiotics-was progressively getting worse suggested a went to ICU and received IV aminophylline as well as BiPAP there and seems to be improving. Discussed with ICU and Pulmonary repeat CT scan-noted . For now continue IV steroid, neb, doxycycline day 7, BiPAP, dimox day2 . moniter i/o, dialy weights pulmonary following Traction alkalosis Secondary to hypoxic hypercapnic respiratory failure Follow BMP DM:?( previous admission in may-was on metformin/sliding scale) Fin gersticks are running from 160-200range Monitor fingersticks with sliding scale coverage adjusted . Hba1c levels 6.9 ?Opioid dependence continue methadone Hypertension: ?continue Cardizem, lisinopril Controlled. Hypernatremia:? Possibly related to decreased p.o. intake Encourage for adequate p.o. intake-free water 250 mL q.6. improed , off fluids. Morbid obesity: Encouraged to cut down calories, consider outpatient bariatric evaluation. DVT PPX Lovenox Need for inpatient:? acute on chronic hypoxic hypercapnic respiratory failure secondary to COPD exacerbation, CO2 retention, viral URI. Quality Stroke Does the patient have a stroke diagnosis?: No VTE Prior VTE?: No VTE Risk Level:: Medical - moderate - high VTE Device Contraindication: N/A - Device Ordered VTE Drug Contraindication: N/A - Med Ordered
--- NOTE | 2021-08-10 10:26 | MHC.CM.PN ---
Addendum entered by Nicole Mckeon 08/10/21 12:04: A call was received from Maggie at [facility]. She stated that she is responsible for delivery of daily Methadone. She requested an estimated discharge date. She was informed that, Per MD rounds, patient being weaned is not ready today. Discharge is anticipated in a few more days. Original Note: Female 51 DX Hypoxia Patient is in the process of weaning from oxygen. 3-5L NC. She is still requiring INPT level of care. DP home with resumption of [employer] services and Methadone therapy, and home O2. Her [facility] [facility] [employer] will provide transportation home.
[2021-08-10 11:12] LABS: Glucose, Whole Blood 265 mg/dL (60-115)
[2021-08-10] MEDS: Doxycycline Hyclate 100 MG in 0.9 % Sodium Chloride 250 ML 166.67 MG IV ×2 (12:03→22:12)
[2021-08-10 16:09] LABS: Glucose, Whole Blood 149 mg/dL (60-115)
[2021-08-10 20:14] LABS: Glucose, Whole Blood 192 mg/dL (60-115)
[2021-08-10] MEDS: Insulin Glargine,Hum.rec.anlog 100 UNIT/ML 10 ML VIAL 55 UNIT SUBCUT (22:10)
[2021-08-10] MEDS: Atorvastatin Calcium 20 MG TABLET PO (22:11)
[2021-08-10] MEDS: Montelukast Sodium 10 MG TABLET PO (22:12)
[2021-08-11] VITALS (14 sets, daily range): BP systolic 138–167; BP diastolic 69–91; PULSE 80–113; RESP 12–20; TEMP 36.3–37; O2SAT 86–97
[2021-08-11 07:33] LABS: Glucose, Whole Blood 242 mg/dL (60-115)
[2021-08-11] MEDS: Albuterol/Iprat 2.5/0.5MG 3 ML AMPUL.NEB INHALE ×4 (07:47→18:58)
[2021-08-11] MEDS: Heparin Sodium,Porcine 5,000 UNIT/ML VIAL 5000 UNIT SUBCUT ×2 (08:13→15:55)
[2021-08-11] MEDS: Nicotine 21 MG PATCH.TD24 TRANSDERMA (08:14)
[2021-08-11] MEDS: Insulin Lispro 100 UNIT/ML 3 ML VIAL SUBCUT ×4 (08:14→20:26)
[2021-08-11] MEDS: Lidocaine 4 % Patch ADH..PATCH 1 PATCH TRANSDERMA (08:14)
[2021-08-11] MEDS: methylPREDNISolone Sod Succ 125 MG/2 ML VIAL 80 MG IVPUSH (08:15)
[2021-08-11] MEDS: Gabapentin 100 MG CAPSULE PO ×2 (08:16→20:25)
[2021-08-11] MEDS: acetaZOLAMIDE 250 MG TABLET 500 MG PO ×2 (08:16→20:25)
[2021-08-11] MEDS: Loratadine 10 MG TABLET PO (08:16)
[2021-08-11] MEDS: dilTIAZem HCL CD 180 MG CAP.ER.24H 360 MG PO (08:16)
[2021-08-11] MEDS: hydrALAZINE HCl 10 MG TABLET PO ×3 (08:16→20:25)
[2021-08-11] MEDS: lisinopriL 40 MG TABLET PO (08:16)
[2021-08-11] MEDS: methADONE HCl 20 MG/2 ML ORAL.CONC 50 MG PO (08:16)
[2021-08-11 11:04] LABS: Glucose, Whole Blood 308 mg/dL (60-115)
--- NOTE | 2021-08-11 15:49 | HO.PM.IMPN ---
Subjective Subjective Date of Service: 08/11/21 Interval History: Feeling better this morning, has been in bed since admission, at baseline do minimal ambulation at home, denies shortness of breath at rest, but get worse with minimal activity, denies chest pain, and no fevers no chills, no worsening cough, no other acute events overnight using BiPAP at night. Review of Systems [employer] no headache no dizziness CVS no chest pain, no palpitation General no fevers, no chills Review of Systems: Yes all other systems are reviewed and are negative Physical Exam Vital Signs: Vital Signs: Last Vital Signs Temp 98.6 F 08/11/21 15:05 Pulse 97 08/11/21 15:19 Resp 18 08/11/21 15:20 BP 154/83 H 08/11/21 15:05 Pulse Ox 92 08/11/21 15:05 Oxygen Flow Rate 35 08/03/21 20:00 BMI result Body Mass Index 37.0 Const: Other: General awake alert x3, no acute distress. Neck no JVD. CVS regular rate rhythm, Respiratory diminished breath sounds, no respiratory distress, occasional wheeze Gastrointestinal abdomen soft, nontender, bowel sounds audible Extremities no edema. Neuro nonfocal Skin no rash Psych appropriate affect Objective Data Active Medications Acetaminophen (Acetaminophen 325 Mg Tablet) 325 mg PO Q6H PRN PRN Reason: pain or fever Last Admin: 07/31/21 20:16 Dose: 325 mg Documented by: DAVE Acetazolamide (Acetazolamide 250 Mg Tablet) 500 mg PO BID [facility] Last Admin: 08/11/21 08:16 Dose: 500 mg Documented by: SERAFIN Albuterol/Ipratropium (Albuterol/Iprat 2.5/0.5mg 3 Ml Ampul.Neb) 3 ml INHALE RQ4H PRN PRN Reason: Shortness of Breath/Wheezing Last Admin: 08/08/21 02:04 Dose: 3 ml Documented by: BETH Albuterol/Ipratropium (Albuterol/Iprat 2.5/0.5mg 3 Ml Ampul.Neb) 3 ml INHALE RQ4H WHILE AWAKE [facility] Last Admin: 08/11/21 15:18 Dose: 3 ml Documented by: WILLIAM Atorvastatin Calcium (Atorvastatin Calcium 20 Mg Tablet) 20 mg PO BEDTIME [facility] Last Admin: 08/10/21 22:11 Dose: 20 mg Documented by: CARLO Dextrose (Dextrose 50 % 25 Gm/50 Ml Syringe) 25 gm IVPUSH Q15M PRN; Protocol PRN Reason: per Hypoglycemia Standing Ord. Dextrose (Dextrose 50 % 25 Gm/50 Ml Syringe) 25 gm IVPUSH Q15M PRN; Protocol PRN Reason: per Hypoglycemia Standing Ord. Diltiazem HCl (Diltiazem Hcl Cd 180 Mg Cap.Er.24h) 360 mg PO DAILY [facility]; Protocol Last Admin: 08/11/21 08:16 Dose: 360 mg Documented by: SERAFIN Gabapentin (Gabapentin 100 Mg Capsule) 100 mg PO BID [facility] Last Admin: 08/11/21 08:16 Dose: 100 mg Documented by: SERAFIN Glucose (Glucose Gel 15 Gm Gel..Gram.) 15 gm PO Q15M PRN; Protocol PRN Reason: per Hypoglycemia Standing Ord. Glucose (Glucose Gel 15 Gm Gel..Gram.) 15 gm PO Q15M PRN; Protocol PRN Reason: per Hypoglycemia Standing Ord. Heparin Sodium (Porcine) (Heparin Sodium,Porcine 5,000 Unit/Ml Vial) 5,000 unit SUBCUT Q8H [facility] Last Admin: 08/11/21 08:13 Dose: 5,000 unit Documented by: SERAFIN Hydralazine HCl (Hydralazine Hcl 10 Mg Tablet) 10 mg PO TID [facility]; Protocol Last Admin: 08/11/21 08:16 Dose: 10 mg Documented by: SERAFIN Insulin Glargine (Insulin Glargine,Hum.Rec.Anlog 100 Unit/Ml 10 Ml Vial) 55 unit SUBCUT BEDTIME [facility] Last Admin: 08/10/21 22:10 Dose: 55 unit Documented by: CARLO Insulin Human Lispro (Insulin Lispro 100 Unit/Ml 3 Ml Vial) 0 unit SUBCUT QIDACHS [facility]; Protocol Last Admin: 08/11/21 11:46 Dose: 12 unit Documented by: SERAFIN Lidocaine (Lidocaine 4 % Patch Adh..Patch) 1 patch TRANSDERMA DAILY [facility] Last Admin: 08/11/21 08:14 Dose: 1 patch Documented by: SERAFIN Lisinopril (Lisinopril 40 Mg Tablet) 40 mg PO DAILY [facility]; Protocol Last Admin: 08/11/21 08:16 Dose: 40 mg Documented by: SERAFIN Loratadine (Loratadine 10 Mg Tablet) 10 mg PO DAILY [facility] Last Admin: 08/11/21 08:16 Dose: 10 mg Documented by: SERAFIN Methadone HCl (Methadone Hcl 20 Mg/2 Ml Oral.Conc) 50 mg PO DAILY [facility] Last Admin: 08/11/21 08:16 Dose: 50 mg Documented by: SERAFIN Methylprednisolone Sodium Succinate (Methylprednisolone Sod Succ 125 Mg/2 Ml Vial) 80 mg IVPUSH Q12H [facility] Last Admin: 08/11/21 08:15 Dose: 80 mg Documented by: SERAFIN Montelukast Sodium (Montelukast Sodium 10 Mg Tablet) 10 mg PO BEDTIME [facility] Last Admin: 08/10/21 22:12 Dose: 10 mg Documented by: CARLO Nicotine (Nicotine 21 Mg Patch.Td24) 21 mg TRANSDERMA DAILY [facility] Last Admin: 08/11/21 08:14 Dose: 21 mg Documented by: SERAFIN Ondansetron HCl (Ondansetron Hcl 4 Mg/2 Ml Vial) 4 mg IVPUSH Q8H PRN PRN Reason: Nausea Pharmacy Consult (Consult Rx Perform Med Rec) 1 each MISCELLANE ONCE PRN PRN Reason: Consult order Senna (Sennosides 8.6 Mg Tablet) 8.6 mg PO BEDTIME PRN PRN Reason: constipation Labs CBC & Chem 7: 08/07/21 06:26 08/10/21 08:29 Labs: Laboratory Results - last 24 hr 08/10/21 08/10/21 08/11/21 16:06 20:10 07:25 POC Glucose 149 H 192 H 242 H 08/11/21 11:00 POC Glucose 308 H Assessment and Plan (1) Acute and chronic respiratory failure: Status: Acute Plan 51-year-old lady with underlying morbid obesity, asthma/ COPD overlap syndrome, obesity hypoventilation, on 2 L of supplemental oxygen, nocturnal BiPAP hypogammaglobulinemia on IVIG, opioid dependence on methadone, diabetes mellitus, hypertension, admitted on 06/06/2021 with dyspnea and hypoxia requiring BiPAP support.? Acute on chronic hypoxic hypercapnic respiratory failure secondary to COPD exacerbation, viral URI(human metapneumovirus) Responded well to BiPAP treatment, IV steroids, nebulizer treatment and iv aminophylline in ICU subsequently transferred down to C Making slow progress on IV steroid, schedule and as needed updrats, BiPAP, and on Diamox due to bilateral lower extremity edema Will wean steroid encourage out of bed to chair, strongly recommend to abstain from smoking, continue home inhalers and Singulair Contraction alkalosis Secondary to hypoxic hypercapnic respiratory failure Continue Diamox bicarb improving, Follow BMP Tobacco use disorder continue nicotine patch DM:? Elevated blood sugars likely due to steroid, On Lantus 55 units at bedtime and insulin sliding scale Hba1c levels 6.9 Opioid dependence continue methadone Hypertension: Few high blood pressure reading,on Cardizem, lisinopril and hydralazine follow BP closely Hyperlipidemia continue Lipitor Hypernatremia:? Sodium normalized, was Possibly related to decreased p.o. intake, Morbid obesity: Recommend low-calorie diet, outpatient bariatric evaluation. DVT PPX continue heparin Need for inpatient:? acute on chronic hypoxic hypercapnic respiratory failure secondary to COPD exacerbation, CO2 retention, viral URI requiring BiPAP and high-dose IV steroids. Quality Stroke Does the patient have a stroke diagnosis?: No VTE Prior VTE?: No VTE Risk Level:: Medical - moderate - high VTE Device Contraindication: N/A - Device Ordered VTE Drug Contraindication: N/A - Med Ordered
[2021-08-11 15:58] LABS: Glucose, Whole Blood 244 mg/dL (60-115)
[2021-08-11 19:20] LABS: Glucose, Whole Blood 254 mg/dL (60-115)
[2021-08-11] MEDS: Montelukast Sodium 10 MG TABLET PO (20:25)
[2021-08-11] MEDS: Insulin Glargine,Hum.rec.anlog 100 UNIT/ML 10 ML VIAL 55 UNIT SUBCUT (20:26)
[2021-08-11] MEDS: Atorvastatin Calcium 20 MG TABLET PO (20:26)
[2021-08-11] MEDS: methylPREDNISolone Sod Succ 125 MG/2 ML VIAL 60 MG IVPUSH (20:26)
[2021-08-12] VITALS (12 sets, daily range): BP systolic 130–169; BP diastolic 68–86; PULSE 69–96; RESP 16–20; TEMP 36.1–36.9; O2SAT 92–98; BMI 35.7
[2021-08-12] MEDS: Heparin Sodium,Porcine 5,000 UNIT/ML VIAL 5000 UNIT SUBCUT ×4 (00:23→21:52)
[2021-08-12 07:18] LABS: Glucose, Whole Blood 396 mg/dL (60-115)
[2021-08-12] MEDS: Albuterol/Iprat 2.5/0.5MG 3 ML AMPUL.NEB INHALE ×4 (07:34→20:12)
[2021-08-12] MEDS: Insulin Lispro 100 UNIT/ML 3 ML VIAL SUBCUT ×4 (08:27→21:51)
[2021-08-12] MEDS: acetaZOLAMIDE 250 MG TABLET 500 MG PO ×2 (08:27→21:49)
[2021-08-12] MEDS: dilTIAZem HCL CD 180 MG CAP.ER.24H 360 MG PO (08:27)
[2021-08-12] MEDS: Gabapentin 100 MG CAPSULE PO ×2 (08:27→21:50)
[2021-08-12] MEDS: methADONE HCl 20 MG/2 ML ORAL.CONC 50 MG PO (08:27)
[2021-08-12] MEDS: Nicotine 21 MG PATCH.TD24 TRANSDERMA (08:28)
[2021-08-12] MEDS: Loratadine 10 MG TABLET PO (08:28)
[2021-08-12] MEDS: Lidocaine 4 % Patch ADH..PATCH 1 PATCH TRANSDERMA (08:28)
[2021-08-12] MEDS: hydrALAZINE HCl 10 MG TABLET PO ×3 (08:28→21:50)
[2021-08-12] MEDS: lisinopriL 40 MG TABLET PO (08:28)
[2021-08-12] MEDS: methylPREDNISolone Sod Succ 125 MG/2 ML VIAL 60 MG IVPUSH (08:45)
[2021-08-12 11:10] LABS: Glucose, Whole Blood 275 mg/dL (60-115)
--- NOTE | 2021-08-12 13:54 | HO.PM.IMPN ---
Subjective Subjective Date of Service: 08/12/21 Interval History: Persistent shortness of breath, oxygen requirement continue to fluctuate at home use oxygen between 2-3 L, no acute overnight events, tolerating BiPAP. Review of Systems Review of Systems: Yes all other systems are reviewed and are negative Physical Exam Vital Signs: Vital Signs: Last Vital Signs Temp 98.5 F 08/12/21 11:08 Pulse 96 08/12/21 11:26 Resp 20 08/12/21 11:26 BP 148/86 H 08/12/21 11:08 Pulse Ox 95 08/12/21 11:08 Oxygen Flow Rate 35 08/03/21 20:00 BMI result Body Mass Index 35.7 Const: Other: General awake alert x3, no acute distress.? Neck? no JVD. CVS? regular rate rhythm Respiratory bilateral diminished breath sounds, no respiratory distress, occasional wheeze Gastrointestinal abdomen soft, nontender, bowel sounds audible Extremities pitting edema. As per patient is chronic Neuro nonfocal Skin no rash Psych appropriate affect Objective Data Active Medications Acetaminophen (Acetaminophen 325 Mg Tablet) 325 mg PO Q6H PRN PRN Reason: pain or fever Last Admin: 07/31/21 20:16 Dose: 325 mg Documented by: DAVE Acetazolamide (Acetazolamide 250 Mg Tablet) 500 mg PO BID [facility] Last Admin: 08/12/21 08:27 Dose: 500 mg Documented by: MIGUEL Albuterol/Ipratropium (Albuterol/Iprat 2.5/0.5mg 3 Ml Ampul.Neb) 3 ml INHALE RQ4H PRN PRN Reason: Shortness of Breath/Wheezing Last Admin: 08/08/21 02:04 Dose: 3 ml Documented by: BETH Albuterol/Ipratropium (Albuterol/Iprat 2.5/0.5mg 3 Ml Ampul.Neb) 3 ml INHALE RQ4H WHILE AWAKE [facility] Last Admin: 08/12/21 11:23 Dose: 3 ml Documented by: WILLIAM Atorvastatin Calcium (Atorvastatin Calcium 20 Mg Tablet) 20 mg PO BEDTIME [facility] Last Admin: 08/11/21 20:26 Dose: 20 mg Documented by: CARLO Dextrose (Dextrose 50 % 25 Gm/50 Ml Syringe) 25 gm IVPUSH Q15M PRN; Protocol PRN Reason: per Hypoglycemia Standing Ord. Dextrose (Dextrose 50 % 25 Gm/50 Ml Syringe) 25 gm IVPUSH Q15M PRN; Protocol PRN Reason: per Hypoglycemia Standing Ord. Diltiazem HCl (Diltiazem Hcl Cd 180 Mg Cap.Er.24h) 360 mg PO DAILY [facility]; Protocol Last Admin: 08/12/21 08:27 Dose: 360 mg Documented by: MIGUEL Gabapentin (Gabapentin 100 Mg Capsule) 100 mg PO BID [facility] Last Admin: 08/12/21 08:27 Dose: 100 mg Documented by: MIGUEL Glucose (Glucose Gel 15 Gm Gel..Gram.) 15 gm PO Q15M PRN; Protocol PRN Reason: per Hypoglycemia Standing Ord. Glucose (Glucose Gel 15 Gm Gel..Gram.) 15 gm PO Q15M PRN; Protocol PRN Reason: per Hypoglycemia Standing Ord. Heparin Sodium (Porcine) (Heparin Sodium,Porcine 5,000 Unit/Ml Vial) 5,000 unit SUBCUT Q8H [facility] Last Admin: 08/12/21 08:25 Dose: 5,000 unit Documented by: MIGUEL Hydralazine HCl (Hydralazine Hcl 10 Mg Tablet) 10 mg PO TID [facility]; Protocol Last Admin: 08/12/21 08:28 Dose: 10 mg Documented by: MIGUEL Insulin Glargine (Insulin Glargine,Hum.Rec.Anlog 100 Unit/Ml 10 Ml Vial) 55 unit SUBCUT BEDTIME [facility] Last Admin: 08/11/21 20:26 Dose: 55 unit Documented by: CARLO Insulin Human Lispro (Insulin Lispro 100 Unit/Ml 3 Ml Vial) 0 unit SUBCUT QIDACHS [facility]; Protocol Last Admin: 08/12/21 11:18 Dose: 10 unit Documented by: MIGUEL Lidocaine (Lidocaine 4 % Patch Adh..Patch) 1 patch TRANSDERMA DAILY [facility] Last Admin: 08/12/21 08:28 Dose: 1 patch Documented by: MIGUEL Lisinopril (Lisinopril 40 Mg Tablet) 40 mg PO DAILY [facility]; Protocol Last Admin: 08/12/21 08:28 Dose: 40 mg Documented by: MIGUEL Loratadine (Loratadine 10 Mg Tablet) 10 mg PO DAILY [facility] Last Admin: 08/12/21 08:28 Dose: 10 mg Documented by: BRITTNEY-SOFFA Methadone HCl (Methadone Hcl 20 Mg/2 Ml Oral.Conc) 50 mg PO DAILY [facility] Last Admin: 08/12/21 08:27 Dose: 50 mg Documented by: BRITTNEY-SOFFA Methylprednisolone Sodium Succinate (Methylprednisolone Sod Succ 125 Mg/2 Ml Vial) 60 mg IVPUSH Q12H [facility] Last Admin: 08/12/21 08:45 Dose: 60 mg Documented by: BRITTNEY-SOFFA Montelukast Sodium (Montelukast Sodium 10 Mg Tablet) 10 mg PO BEDTIME [facility] Last Admin: 08/11/21 20:25 Dose: 10 mg Documented by: MAICOL.NAUMOC Nicotine (Nicotine 21 Mg Patch.Td24) 21 mg TRANSDERMA DAILY [facility] Last Admin: 08/12/21 08:28 Dose: 21 mg Documented by: BRITTNEY-SOFFA Ondansetron HCl (Ondansetron Hcl 4 Mg/2 Ml Vial) 4 mg IVPUSH Q8H PRN PRN Reason: Nausea Pharmacy Consult (Consult Rx Perform Med Rec) 1 each MISCELLANE ONCE PRN PRN Reason: Consult order Senna (Sennosides 8.6 Mg Tablet) 8.6 mg PO BEDTIME PRN PRN Reason: constipation Labs CBC & Chem 7: 08/07/21 06:26 08/10/21 08:29 Labs: Laboratory Results - last 24 hr 08/11/21 08/11/21 08/12/21 15:54 19:16 07:14 POC Glucose 244 H 254 H 396 H* 08/12/21 11:05 POC Glucose 275 H Assessment and Plan (1) Acute and chronic respiratory failure: Status: Acute Plan 51-year-old lady with underlying morbid obesity, asthma/ COPD overlap syndrome, obesity hypoventilation, on 2 L of supplemental oxygen, nocturnal BiPAP hypogammaglobulinemia on IVIG, opioid dependence on methadone, diabetes mellitus, hypertension, admitted on 06/06/2021 with dyspnea and hypoxia requiring BiPAP support.? Acute on chronic hypoxic hypercapnic respiratory failure secondary to COPD exacerbation, viral URI(human metapneumovirus) Responded well to BiPAP treatment, IV steroids, nebulizer treatment and iv aminophylline in ICU subsequently transferred down to [facility] Making slow progress on IV steroid, schedule and as needed updrats, BiPAP, and on Diamox due to bilateral lower extremity edema and alkalosis Will wean steroid encourage out of bed to chair, strongly recommend to abstain from smoking, continue home inhalers and Singulair Added incentive spirometry Contraction alkalosis Secondary to hypoxic hypercapnic respiratory failure, bicarb trending down Will DC Diamox after today's dose, Follow BMP Tobacco use disorder continue nicotine patch DM:? Elevated blood sugars likely due to steroid, On Lantus 55 units at bedtime and insulin sliding scale Hba1c levels 6.9 Opioid dependence continue methadone Hypertension: Few high blood pressure reading, otherwise within normal range continue Cardizem, lisinopril and hydralazine follow BP closely Hyperlipidemia continue Lipitor Hypernatremia:? Sodium normalized, was Possibly related to decreased p.o. intake, Morbid obesity: Recommend low-calorie diet, outpatient bariatric evaluation. DVT PPX continue heparin Need for inpatient:? acute on chronic hypoxic hypercapnic respiratory failure secondary to COPD exacerbation, CO2 retention, viral URI requiring BiPAP and high-dose IV steroids. Quality Stroke Does the patient have a stroke diagnosis?: No VTE Prior VTE?: No VTE Risk Level:: Medical - moderate - high VTE Device Contraindication: N/A - Device Ordered VTE Drug Contraindication: N/A - Med Ordered
[2021-08-12 16:07] LABS: Glucose, Whole Blood 171 mg/dL (60-115)
--- NOTE | 2021-08-12 19:31 | PC.NURSE ---
isolation precautions maintained. poc maintained, md informed of elevated poc this AM. no new orders at this time. no acute issues this shift. safety and fall precautions in place. call lu within reach. pt able to repo self.
[2021-08-12 20:04] LABS: Glucose, Whole Blood 309 mg/dL (60-115)
[2021-08-12] MEDS: Atorvastatin Calcium 20 MG TABLET PO (21:49)
[2021-08-12] MEDS: Montelukast Sodium 10 MG TABLET PO (21:50)
[2021-08-12] MEDS: methylPREDNISolone Sod Succ 125 MG/2 ML VIAL 40 MG IVPUSH (21:50)
[2021-08-12] MEDS: Insulin Glargine,Hum.rec.anlog 100 UNIT/ML 10 ML VIAL 55 UNIT SUBCUT (21:51)
[2021-08-13] VITALS (10 sets, daily range): BP systolic 108–150; BP diastolic 65–81; PULSE 65–94; RESP 16–22; TEMP 36.4–37.1; O2SAT 92–99
[2021-08-13] MEDS: Heparin Sodium,Porcine 5,000 UNIT/ML VIAL 5000 UNIT SUBCUT ×3 (06:20→22:15)
[2021-08-13 07:13] LABS: Anion Gap 11 (12-20); Blood Urea Nitrogen 23 mg/dL (9-16); Calcium 9.5 mg/dL (8.4-10.2); Carbon Dioxide 35 mmol/L (22-29); Chloride 98 mmol/L (96-108); Creatinine Clr Calc Pharmacy 112.1; Estimated Glomerular Filt Rate > 60; Glucose Random 200 mg/dL (60-115); Potassium 4.8 mmol/L (3.3-5.1); Sodium 139 mmol/L (135-145)
[2021-08-13 07:36] LABS: Glucose, Whole Blood 170 mg/dL (60-115)
[2021-08-13] MEDS: Albuterol/Iprat 2.5/0.5MG 3 ML AMPUL.NEB INHALE ×4 (07:37→20:13)
[2021-08-13] MEDS: Nicotine 21 MG PATCH.TD24 TRANSDERMA (08:01)
[2021-08-13] MEDS: Insulin Lispro 100 UNIT/ML 3 ML VIAL SUBCUT ×4 (08:02→22:16)
[2021-08-13] MEDS: Lidocaine 4 % Patch ADH..PATCH 1 PATCH TRANSDERMA (08:02)
[2021-08-13] MEDS: methylPREDNISolone Sod Succ 125 MG/2 ML VIAL 40 MG IVPUSH (08:02)
[2021-08-13] MEDS: methADONE HCl 20 MG/2 ML ORAL.CONC 50 MG PO (08:03)
[2021-08-13] MEDS: lisinopriL 40 MG TABLET PO (08:03)
[2021-08-13] MEDS: Loratadine 10 MG TABLET PO (08:03)
[2021-08-13] MEDS: Gabapentin 100 MG CAPSULE PO ×2 (08:03→22:15)
[2021-08-13] MEDS: acetaZOLAMIDE 250 MG TABLET 500 MG PO (08:03)
[2021-08-13] MEDS: hydrALAZINE HCl 10 MG TABLET PO ×3 (08:03→22:15)
[2021-08-13] MEDS: dilTIAZem HCL CD 180 MG CAP.ER.24H 360 MG PO (08:04)
[2021-08-13 11:18] LABS: Glucose, Whole Blood 318 mg/dL (60-115)
--- NOTE | 2021-08-13 12:48 | HO.PM.IMPN ---
Subjective Subjective Date of Service: 08/13/21 Interval History: Feels better, still complaining of shortness of breath, feels not ready for discharge since not at baseline, has been out of bed to chair, tolerating BiPAP at night, no acute events overnight, oxygenation 92% on 2-3 L Review of Systems Review of Systems: Yes all other systems are reviewed and are negative Physical Exam Vital Signs: Vital Signs: Last Vital Signs Temp 98.6 F 08/13/21 11:15 Pulse 90 08/13/21 11:36 Resp 22 H 08/13/21 11:36 BP 132/71 08/13/21 11:15 Pulse Ox 92 08/13/21 11:15 Oxygen Flow Rate 35 08/03/21 20:00 BMI result Body Mass Index 35.7 Const: Other: General awake alert x3, no acute distress.? Neck? no JVD. CVS? regular rate rhythm Respiratory bilateral moving air breath sound less diminished, no respiratory distress, occasional wheeze Gastrointestinal abdomen soft, nontender, bowel sounds audible Extremities less edema.? As per patient is chronic Neuro nonfocal Skin no rash Psych appropriate affect Objective Data Active Medications Acetaminophen (Acetaminophen 325 Mg Tablet) 325 mg PO Q6H PRN PRN Reason: pain or fever Last Admin: 07/31/21 20:16 Dose: 325 mg Documented by: DAVE Acetazolamide (Acetazolamide 250 Mg Tablet) 500 mg PO BID [facility] Last Admin: 08/13/21 08:03 Dose: 500 mg Documented by: NATALIA Albuterol/Ipratropium (Albuterol/Iprat 2.5/0.5mg 3 Ml Ampul.Neb) 3 ml INHALE RQ4H PRN PRN Reason: Shortness of Breath/Wheezing Last Admin: 08/08/21 02:04 Dose: 3 ml Documented by: BETH Albuterol/Ipratropium (Albuterol/Iprat 2.5/0.5mg 3 Ml Ampul.Neb) 3 ml INHALE RQ4H WHILE AWAKE [facility] Last Admin: 08/13/21 11:35 Dose: 3 ml Documented by: JAYE Atorvastatin Calcium (Atorvastatin Calcium 20 Mg Tablet) 20 mg PO BEDTIME [facility] Last Admin: 08/12/21 21:49 Dose: 20 mg Documented by: ANTONINA Dextrose (Dextrose 50 % 25 Gm/50 Ml Syringe) 25 gm IVPUSH Q15M PRN; Protocol PRN Reason: per Hypoglycemia Standing Ord. Dextrose (Dextrose 50 % 25 Gm/50 Ml Syringe) 25 gm IVPUSH Q15M PRN; Protocol PRN Reason: per Hypoglycemia Standing Ord. Diltiazem HCl (Diltiazem Hcl Cd 180 Mg Cap.Er.24h) 360 mg PO DAILY [facility]; Protocol Last Admin: 08/13/21 08:04 Dose: 360 mg Documented by: NATALIA Gabapentin (Gabapentin 100 Mg Capsule) 100 mg PO BID [facility] Last Admin: 08/13/21 08:03 Dose: 100 mg Documented by: NATALIA Glucose (Glucose Gel 15 Gm Gel..Gram.) 15 gm PO Q15M PRN; Protocol PRN Reason: per Hypoglycemia Standing Ord. Glucose (Glucose Gel 15 Gm Gel..Gram.) 15 gm PO Q15M PRN; Protocol PRN Reason: per Hypoglycemia Standing Ord. Heparin Sodium (Porcine) (Heparin Sodium,Porcine 5,000 Unit/Ml Vial) 5,000 unit SUBCUT Q8H [facility] Last Admin: 08/13/21 06:20 Dose: 5,000 unit Documented by: THADDEUS Hydralazine HCl (Hydralazine Hcl 10 Mg Tablet) 10 mg PO TID [facility]; Protocol Last Admin: 08/13/21 08:03 Dose: 10 mg Documented by: NATALIA Insulin Glargine (Insulin Glargine,Hum.Rec.Anlog 100 Unit/Ml 10 Ml Vial) 55 unit SUBCUT BEDTIME [facility] Last Admin: 08/12/21 21:51 Dose: 55 unit Documented by: ANTONINA Insulin Human Lispro (Insulin Lispro 100 Unit/Ml 3 Ml Vial) 0 unit SUBCUT QIDACHS [facility]; Protocol Last Admin: 08/13/21 12:14 Dose: 12 unit Documented by: NATALIA Lidocaine (Lidocaine 4 % Patch Adh..Patch) 1 patch TRANSDERMA DAILY [facility] Last Admin: 08/13/21 08:02 Dose: 1 patch Documented by: NATALIA Lisinopril (Lisinopril 40 Mg Tablet) 40 mg PO DAILY [facility]; Protocol Last Admin: 08/13/21 08:03 Dose: 40 mg Documented by: NATALIA Loratadine (Loratadine 10 Mg Tablet) 10 mg PO DAILY [facility] Last Admin: 08/13/21 08:03 Dose: 10 mg Documented by: NATALIA Methadone HCl (Methadone Hcl 20 Mg/2 Ml Oral.Conc) 50 mg PO DAILY [facility] Last Admin: 08/13/21 08:03 Dose: 50 mg Documented by: NATALIA Methylprednisolone Sodium Succinate (Methylprednisolone Sod Succ 125 Mg/2 Ml Vial) 40 mg IVPUSH Q12H [facility] Last Admin: 08/13/21 08:02 Dose: 40 mg Documented by: NATALIA Montelukast Sodium (Montelukast Sodium 10 Mg Tablet) 10 mg PO BEDTIME [facility] Last Admin: 08/12/21 21:50 Dose: 10 mg Documented by: ANTONINA Nicotine (Nicotine 21 Mg Patch.Td24) 21 mg TRANSDERMA DAILY [facility] Last Admin: 08/13/21 08:01 Dose: 21 mg Documented by: NATALIA Ondansetron HCl (Ondansetron Hcl 4 Mg/2 Ml Vial) 4 mg IVPUSH Q8H PRN PRN Reason: Nausea Pharmacy Consult (Consult Rx Perform Med Rec) 1 each MISCELLANE ONCE PRN PRN Reason: Consult order Senna (Sennosides 8.6 Mg Tablet) 8.6 mg PO BEDTIME PRN PRN Reason: constipation Labs CBC & Chem 7: 08/07/21 06:26 08/13/21 06:48 Labs: Laboratory Results - last 24 hr 08/12/21 08/12/21 08/13/21 16:00 20:00 06:48 Anion Gap 11 L Estim Creat Clear Calc 112.1 Estimated GFR > 60 POC Glucose 171 H 309 H Random Glucose 200 H Calcium 9.5 08/13/21 08/13/21 07:32 11:14 Anion Gap Estim Creat Clear Calc Estimated GFR POC Glucose 170 H 318 H Random Glucose Calcium Assessment and Plan (1) Acute and chronic respiratory failure: Status: Acute Plan 51-year-old lady with underlying morbid obesity, asthma/ COPD overlap syndrome, obesity hypoventilation, on 2 L of supplemental oxygen, nocturnal BiPAP hypogammaglobulinemia on IVIG, opioid dependence on methadone, diabetes mellitus, hypertension, admitted on 06/06/2021 with dyspnea and hypoxia requiring BiPAP support.? Acute on chronic hypoxic hypercapnic respiratory failure secondary to COPD exacerbation, viral URI(human metapneumovirus) Responded well to BiPAP treatment, IV steroids, nebulizer treatment and iv aminophylline in ICU subsequently transferred down to C Making slow progress on IV steroid, schedule and as needed updrats, BiPAP, and Diamox due to bilateral lower extremity edema and alkalosis On home inhalers and Singulair Will change to by mouth steroid at a.m./recommend out of bed to chair and ambulation encourage incentive spirometry Possible DC home at a.m. if remains hemodynamically stable Contraction alkalosis Secondary to hypoxic hypercapnic respiratory failure, bicarb trending down status post Diamox time 5 daily Tobacco use disorder continue nicotine patch, counseling done DM:? Elevated blood sugars likely due to steroid, On Lantus 55 units at bedtime and insulin sliding scale Hba1c levels 6.9 Opioid dependence continue methadone Hypertension: Few high blood pressure reading, otherwise within normal range continue Cardizem, lisinopril and hydralazine follow BP closely Hyperlipidemia continue Lipitor Hypernatremia:? Sodium normalized, was Possibly related to decreased p.o. intake, Morbid obesity: Recommend low-calorie diet, outpatient bariatric evaluation. DVT PPX continue heparin Need for inpatient:? acute on chronic hypoxic hypercapnic respiratory failure secondary to COPD exacerbation, CO2 retention, viral URI requiring BiPAP and on high-dose IV steroids. Quality Stroke Does the patient have a stroke diagnosis?: No VTE Prior VTE?: No VTE Risk Level:: Medical - moderate - high VTE Device Contraindication: N/A - Device Ordered VTE Drug Contraindication: N/A - Med Ordered
[2021-08-13 15:57] LABS: Glucose, Whole Blood 171 mg/dL (60-115)
[2021-08-13] MEDS: predniSONE 20 MG TABLET 40 MG PO (17:37)
[2021-08-13 20:32] LABS: Glucose, Whole Blood 429 mg/dL (60-115)
[2021-08-13] MEDS: Montelukast Sodium 10 MG TABLET PO (22:15)
[2021-08-13] MEDS: Atorvastatin Calcium 20 MG TABLET PO (22:15)
[2021-08-13] MEDS: Insulin Glargine,Hum.rec.anlog 100 UNIT/ML 10 ML VIAL 55 UNIT SUBCUT (22:16)
[2021-08-14 03:15] VITALS: BP 143/94; PULSE 88; RESP 20; TEMP 37; O2SAT 98
[2021-08-14 05:53] VITALS: BMI 35.9
[2021-08-14 07:16] VITALS: BP 139/78; PULSE 79; RESP 20; TEMP 36.5; O2SAT 98
[2021-08-14 07:26] LABS: Glucose, Whole Blood 151 mg/dL (60-115)
[2021-08-14] MEDS: Albuterol/Iprat 2.5/0.5MG 3 ML AMPUL.NEB INHALE ×2 (07:58→11:41)
[2021-08-14 07:59] VITALS: PULSE 79; RESP 20; O2SAT 95
[2021-08-14] MEDS: methADONE HCl 20 MG/2 ML ORAL.CONC 50 MG PO (09:18)
[2021-08-14] MEDS: hydrALAZINE HCl 10 MG TABLET PO (09:19)
[2021-08-14] MEDS: Heparin Sodium,Porcine 5,000 UNIT/ML VIAL 5000 UNIT SUBCUT (09:19)
[2021-08-14] MEDS: Insulin Lispro 100 UNIT/ML 3 ML VIAL SUBCUT (09:19)
[2021-08-14] MEDS: Loratadine 10 MG TABLET PO (09:19)
[2021-08-14] MEDS: dilTIAZem HCL CD 180 MG CAP.ER.24H 360 MG PO (09:19)
[2021-08-14] MEDS: predniSONE 20 MG TABLET 40 MG PO (09:19)
[2021-08-14] MEDS: lisinopriL 40 MG TABLET PO (09:19)
[2021-08-14] MEDS: Gabapentin 100 MG CAPSULE PO (09:20)
[2021-08-14] MEDS: Lidocaine 4 % Patch ADH..PATCH 1 PATCH TRANSDERMA (09:20)
[2021-08-14] MEDS: Nicotine 21 MG PATCH.TD24 TRANSDERMA (09:20)
--- NOTE | 2021-08-14 11:24 | PM.DS ---
DS: Providers Provider Date of Service: 08/14/21 Date of admission: 07/30/21 14:41 Primary care physician: Kelli Benavides MD Consults: 07/31/21 12:49 Consult to Pulmonology Routine [place] [facility] [place] Reason for consultation: Acute hypoxemic respiratory failure, COPD, abnormal CT chest. Has provider been notified: No 07/31/21 17:29 Consult to Care Team Routine Comment: Reason for consultation: anxiety DS: Diagnosis Discharge Diagnosis (1) Acute and chronic respiratory failure: Status: Acute DS: Summary Hospital Course Hospital Course: History of presenting illness Chief Complaint: Dyspnea 51-year-old morbidly obese female insulin-dependent diabetic and hypertensive obvious metabolic syndrome with 1 of many many many admissions with very little time in between at home of of status asthmaticus respiratory exacerbation yet she claims she takes her medicines at home no fever chills no change in cough quality no chew associated chest discomfort she presents with an acute on chronic hypercarbic and hypoxic respiratory failure her normal living pCO2 probably between 70 and 80 she began at 01:24 and on BiPAP in the emergency room came down to 90 currently still using diaphragmatic effort for it for expiration no paradoxic motion of her ribcage but she is using accessory muscles for inspiratory effort as well although much better still a degree of respiratory distress On a methadone program in addition to these other issues and thus far given her degree of improvement it besides the BiPAP mechanism she had 2 large dose albuterol inhaler treatments. Hospital course 51-year-old lady with underlying morbid obesity, asthma/ COPD overlap syndrome, obesity hypoventilation, on 2 L of supplemental oxygen, nocturnal BiPAP hypogammaglobulinemia on IVIG, opioid dependence on methadone, diabetes mellitus, hypertension, admitted on 07/30/2021 with dyspnea and hypoxia requiring BiPAP support.? Acute on chronic hypoxic hypercapnic respiratory failure secondary to COPD exacerbation, viral URI(human metapneumovirus) patient admitted to intensive care unit aggressively treated with updraft treatment IV steroid, IV aminophylline, required treatment with BiPAP patient responded well to above treatment and was subsequently transferred down to [facility] [place], patient made slow progress, was continued on IV steroid, schedule and as needed updrats, BiPAP, Singulair and Diamox due to bilateral lower extremity edema and alkalosis, currently patient is doing better have good air entry in both lungs able to talk in full sentences therefore she is being discharged home with recommendation to continue home oxygen 2 L at rest and 3 L with activity, recommend to continue home inhalers and prednisone treatment 40 mg by mouth daily for 4 days followed by 20 mg by mouth daily patient is being followed closely by Dr. Brito from pulmonology recommended to continue all home inhalers as before. Contraction alkalosis Secondary to hypoxic hypercapnic respiratory failure, treated with 5 days of Diamox edema and alkalosis improved. Tobacco use disorder continue nicotine patch, counseling done. DM:? Elevated blood sugars likely due to steroid, recommend to continue Lantus and insulin sliding scale.Hba1c levels 6.9 Opioid dependence continue methadone Hypertension: Noted to have elevated blood pressure therefore continued on Cardizem, lisinopril and low-dose hydralazine added. Hyperlipidemia continue Lipitor Hypernatremia:? Sodium normalized, was Possibly related to decreased p.o. intake, Morbid obesity:? Recommend low-calorie diet, outpatient bariatric evaluation. Time Spent with Patient Time attestation: Total time spent providing and/or coordinating discharge services: Discharge coordination time: Greater than 30 minutes Quality: Safe Use of Opioids Does Pt have an Active Cancer Diagnosis on the Problem List?: No Quality: Stroke Does the patient have a stroke diagnosis?: No Physical Exam Vital Signs: Vital Signs: Last Vital Signs Temp 97.7 F 08/14/21 07:16 Pulse 79 08/14/21 07:59 Resp 20 08/14/21 07:59 BP 139/78 08/14/21 07:16 Pulse Ox 98 08/14/21 07:16 Oxygen Flow Rate 35 08/03/21 20:00 BMI result Body Mass Index 35.9 Const: Other: General awake alert x3, no acute distress, talking in full sentences Neck? no JVD. CVS? regular rate rhythm Respiratory lungs breath sound less diminished, no respiratory distress, occasional wheeze Gastrointestinal abdomen soft, nontender, bowel sounds audible Extremities less edema.? As per patient is chronic Neuro nonfocal Skin no rash Psych appropriate affect DS: Data Data Completed and Pending Completed studies during hospitalization [Text1]: Procedures Assistance with Respiratory Ventilation, 24-96 Consecutive Hours, Continuous Positive Airway Pressure (05/18/21) Assistance with Respiratory Ventilation, Less than 24 Consecutive Hours, Continuous Positive Airway Pressure (02/21/21) Labs on day of discharge: Laboratory Results - last 24 hr 08/13/21 08/13/21 08/14/21 15:54 20:26 07:18 POC Glucose 171 H 429 H* 151 H Discharge Plan Discharge Patient Disposition: Home, Self-Care Discharge Diagnosis: Acute on chronic hypoxic and hypercarbic respiratory failure Acute COPD exacerbation Viral URI Contraction alkalosis Tobacco dependence Referrals: Kelli Benavides MD [Primary Care Provider] - 1 Week Discharge Medications: New hydralazine 10 mg Tablet 10 mg PO TID Qty: 90 0RF Protocol: Hold for SBP< HOLD for SBP < : 90 nicotine 21 mg/24 hr Patch 24 Hour 21 mg transdermal DAILY Qty: 30 0RF prednisone 20 mg tablet 20 mg PO DAILY Qty: 60 0RF Rx Instructions: Take prednisone 40 mg (2 tablets prednisone 20 mg) for 4 days then take prednisone 20 mg daily. Continued immun glob [id number] 0-50 10 gram recon soln 40 g IV Q4W Qty: 2 12RF ipratropium-albuterol 0.5 mg-3 mg(2.5 mg base)/3 mL solution for nebulization 3 ml inhalation Q4H PRN (Reason: for wheezing) Qty: 540 6RF Spiriva with HandiHaler 18 mcg capsule, w/inhalation device 1 cap inhalation DAILY Qty: 30 11RF gabapentin 100 mg capsule 1 cap PO BID 0RF diltiazem HCl [Tiadylt ER] 360 mg capsule,extended release 24 hr 1 cap PO DAILY 0RF rosuvastatin 5 mg tablet 1 tab PO BEDTIME 0RF Daliresp 500 mcg tablet 1 tab PO DAILY 0RF lidocaine 5 % adhesive patch,medicated 1 patch topical DAILY 0RF insulin lispro [Humalog U-100 Insulin] 100 unit/mL solution See Protocol sliding scale dose subcut TIDAC 0RF Protocol: Insulin Correction Scale Less than or equal to 110 ---- Give (units): 0 111 to 150 Give (units): 0 151 to 200 Give (units): 2 201 to 250 Give (units): 4 251 to 300 Give (units): 6 301 to 350 Give (units): 8 Greater than 350 Give (units): 10 Call MD if Blood Glucose > : 350 metformin 500 mg tablet extended release 24 hr 2 tab PO BID 0RF acetaminophen [Tylenol Extra Strength] 500 mg tablet 500 mg PO Q6H PRN (Reason: pain or fever) Qty: 20 0RF Arnoldo-24 400 mg capsule,extended release 24hr 800 mg PO DAILY 0RF methadone 10 mg/mL Concentrate 49 mg PO DAILY 0RF ergocalciferol (vitamin D2) 1,250 mcg (50,000 unit) capsule 1,250 mcg PO QWEEK 0RF Lantus U-100 Insulin 100 unit/mL solution 45 unit subcut BEDTIME 0RF Label Comments: pt states she takes 45 units at home, confirmed with pharmacy 05/10 lisinopril 40 mg tablet 1 tab PO DAILY 0RF sodium chloride 7 % Solution For Nebulization 4 ml INHALATION BID 0RF montelukast 10 mg tablet 10 mg PO BEDTIME 0RF albuterol sulfate [ProAir HFA] 90 mcg/actuation HFA aerosol inhaler 2 puff inhalation Q4H PRN (Reason: Shortness Of Breath Or Wheezing) 0RF loratadine [Claritin] 10 mg tablet 10 mg PO DAILY 0RF sennosides [Natural Senna Laxative] 8.6 mg tablet 8.6 mg PO BEDTIME PRN (Reason: constipation) Qty: 30 3RF omeprazole 40 mg capsule,delayed release(DR/EC) 40 mg PO DAILY 30 Days Qty: 30 3RF Brovana 15 mcg/2 mL solution for nebulization 2 ml inhalation Q12H 30 Days Qty: 120 11RF budesonide 0.5 mg/2 mL suspension for nebulization 0.5 mg inhalation BID Qty: 120 11RF Discontinued ibuprofen 600 mg tablet 600 mg PO Q8H PRN (Reason: pain) 10 Days Qty: 20 0RF prednisone 10 mg tablet 20 mg PO DAILY 0RF prednisone 5 mg tablet 10 mg PO BEDTIME 0RF Discharge Orders: Discharge Order (Routine); Ordered 08/14/21 Ordered By: Vel Ramires Diet: diabetic diet and low fat, low cholesterol Activity on Discharge: As tolerated Stand Alone Forms: Patient Portal Discharge page Care Plan Goals: Chronic respiratory failure continue home oxygen 2 L keep finger oximetry 90% may increase to 3 L with activity, take prednisone 40 mg daily for 4 days then take prednisone 20 mg daily continue all home medication as before your been started on hydralazine 10 mg 3 times a day due to high blood pressure. Health Concerns: Strongly recommend to abstain from smoking use nicotine patch follow diabetic diet, increase activity as tolerated Plan of Treatment: Outpatient follow-up with pulmonology Dr. Brito, follow up with primary care physician in 1-2 weeks Assessment: As per discharge summary
--- NOTE | 2021-08-14 11:33 | MHC.CM.PN ---
Patient has been medically cleared for dc to home today, self care.
--- NOTE | 2021-08-14 11:54 | PC.NURSE ---
po maintained, insulin administered as ordered. pt daughter at bedside to bring pt home. md placed dischrge orders in, d/c packet given to pt, pt educated. IV was removed and tele removed. safety and fall precautions in place. call lu within reach. bairon patch was d/c'ed. isolation precautions maintained
== END 2021-08-14 11:40 | disposition home or self-care (01) | DRG 133 ==
LOC: HO.ED 12:57 → HO.EDOVER 14:50 → HO.ICU 15:12 → HO.IMC 07-31 12:56 → HO.ICU 08-03 17:52 → HO.IMC 08-04 06:27
PROVIDERS: Emergency Medicine; Hospitalist; Internal Medicine; Physician Assistant; Admitting Provider Internal Medicine Cardiovascular Disease; Emergency Provider Emergency Medicine Emergency Medical Services; PCP Family Medicine; Visit Provider Hospitalist
DX: J96.21 Acute and chronic respiratory failure with hypoxia (principal); E87.0 Hyperosmolality and hypernatremia; E87.3 Alkalosis; J18.9 Pneumonia, unspecified organism; E66.2 Morbid (severe) obesity with alveolar hypoventilation; J45.902 Unspecified asthma with status asthmaticus; J44.1 Chronic obstructive pulmonary disease with (acute) exacerbation; J96.22 Acute and chronic respiratory failure with hypercapnia; Z20.822 Contact with and (suspected) exposure to COVID-19; F11.20 Opioid dependence, uncomplicated; F17.210 Nicotine dependence, cigarettes, uncomplicated; Z71.6 Tobacco abuse counseling; J06.9 Acute upper respiratory infection, unspecified; B97.81 Human metapneumovirus as the cause of diseases classified elsewhere; E11.65 Type 2 diabetes mellitus with hyperglycemia; I11.9 Hypertensive heart disease without heart failure; Z68.35 Body mass index [BMI] 35.0-35.9, adult; Z98.51 Tubal ligation status; Z71.3 Dietary counseling and surveillance; Z56.0 Unemployment, unspecified; Z79.4 Long term (current) use of insulin; Z79.52 Long term (current) use of systemic steroids; Z79.84 Long term (current) use of oral hypoglycemic drugs; Z79.899 Other long term (current) drug therapy
CPT/HCPCS: 36415; 36600; 71045; 71250; 80048; 80076; 80198; 80202; 80307; 82164; 82803; 82947; 83036; 83605; 83690; 83735; 83880; 84100; 84145; 84295; 84484; 85025; 85027; 85379; 85610; 85652; 86015; 86021; 86038; 86039; 86140; 86225; 86235; 86255; 86256; 86431; 87040; 87449; 87633; 87635; 87899; 94640; 94644; 94645; 94660; 96365; 96375; 99284; 99285; J0280; J0696; J1885; J1956; J2060; J2270; J2930; J3465; J3475

== ENCOUNTER 2021-09-04 10:51 | Outpatient (REF) | payer MEDICAID, SELFPAY ==
[2021-09-04 11:11] LABS: MANUAL DIFF FLAG NO
[2021-09-04 11:52] LABS: Basophils Absolute Auto 0.1 X10*3/uL (0.0-0.2); Basophils Percent Auto 0.4 % (0-2); Eosinophils Percent Auto 0.2 % (0-4); Hematocrit 37.6 % (37.0-47.0); Hemoglobin 11.5 g/dl (12.0-16.0); Imm Gran Abs Auto 0.52 X10*3/uL (0.00-0.03); Imm Gran Pct Auto 3.9 % (0.0-0.4); Lymphocytes Absolute Auto 1.8 X10*3/uL (1.2-4.9); Lymphocytes Percent Auto 13.1 % (20-40); Mean Corpuscular HGB Conc 30.6 g/dl (31.0-35.0); Mean Corpuscular Hemoglobin 30.3 pg (27.0-33.0); Mean Corpuscular Volume 99.2 fL (80.0-98.0); Mean Platelet Volume 8.9 fL (9.4-12.3); Monocytes Percent Auto 7.4 % (2-11); NRBC Pct Auto 0.1 /100WBC (0.0-0.2); Neutrophils Absolute Auto 10.1 x10*3/uL (2.0-8.3); Platelet Count 292 X10*3/uL (160-400); Red Blood Count 3.79 X10*6/uL (4.20-5.50); Red Cell Distribution Width 14.6 % (11.0-16.0); White Blood Count 13.4 X10*3/uL (4.8-10.8)
[2021-09-04 12:05] LABS: D Dimer High Sensitivity < 150 NG/ML
[2021-09-04 12:31] LABS: Erythrocyte Sedimentation Rate 23 MM/HR (0-20)
[2021-09-04 13:18] LABS: Anion Gap 15 (12-20); Blood Urea Nitrogen 19 mg/dL (9-16); Calcium 9.2 mg/dL (8.4-10.2); Carbon Dioxide 31 mmol/L (22-29); Chloride 100 mmol/L (96-108); Estimated Glomerular Filt Rate > 60; Glucose Random 49 mg/dL (60-115); Sodium 142 mmol/L (135-145)
== END 2021-09-04 10:52 | disposition home or self-care (01) ==
LOC: HO.LAB 10:51
PROVIDERS: Visit Provider Hospitalist
DX: R07.81 Pleurodynia (principal); J44.1 Chronic obstructive pulmonary disease with (acute) exacerbation; J45.902 Unspecified asthma with status asthmaticus; J96.12 Chronic respiratory failure with hypercapnia; J96.11 Chronic respiratory failure with hypoxia; Z99.81 Dependence on supplemental oxygen; F17.210 Nicotine dependence, cigarettes, uncomplicated
CPT/HCPCS: 36415; 80048; 80198; 85025; 85379; 85652; 99212

== ENCOUNTER 2021-09-06 12:27 | Emergency (ER) | payer MEDICAID, SELFPAY ==
[2021-09-06 12:41] VITALS: BP 132/63; BP 168/90; PULSE 101; PULSE 120; RESP 20; TEMP 36.9; O2SAT 96; O2SAT 98; BMI 35.5
--- NOTE | 2021-09-06 13:46 | ED.FALL ---
HPI - Fall General Chief Complaint: Fall <Josee Araya MD - Last Filed: 09/06/21 14:50> Stated Complaint: fall w/ lac right knee <Josee Araya MD - Last Filed: 09/06/21 14:50> Time Seen by Provider: 09/06/21 13:46 <Josee Araya MD - Last Filed: 09/06/21 14:50> Source: patient <Josee Araya MD - Last Filed: 09/06/21 14:50> Mode of arrival: EMS <Josee Araya MD - Last Filed: 09/06/21 14:50> History of Present Illness HPI Narrative: 51-year-old female who is diabetic is brought in by EMS after she sustained a mechanical fall home without loss of consciousness and not on current blood thinners. Patient denies any pain to either upper extremity. She reports that her tetanus is within the past 5 years. <Josee Araya MD - Last Filed: 09/06/21 14:50> Related Data Home Medications: Home Medications Medication Instructions Recorded Confirmed albuterol sulfate 90 mcg/actuation 2 puff inhalation Q4H PRN 12/30/19 07/30/21 aerosol inhaler (ProAir HFA) Shortness Of Breath Or Wheezing loratadine 10 mg tablet (Claritin) 10 mg PO DAILY 12/30/19 07/30/21 montelukast 10 mg tablet 10 mg PO BEDTIME 12/30/19 07/30/21 gabapentin 100 mg capsule 1 cap PO BID 10/14/20 07/30/21 diltiazem HCl 360 mg capsule,24 1 cap PO DAILY 11/16/20 07/30/21 hr,extended release (Tiadylt ER) roflumilast 500 mcg tablet 1 tab PO DAILY 11/16/20 07/30/21 (Daliresp) rosuvastatin 5 mg tablet 1 tab PO BEDTIME 11/16/20 07/30/21 insulin lispro 100 unit/mL See Protocol subcut TIDAC 12/14/20 07/30/21 subcutaneous solution (Humalog U-100 Insulin) lidocaine 5 % topical patch 1 patch topical DAILY 12/14/20 07/30/21 metformin 500 mg tablet,extended 2 tab PO BID 05/18/21 07/30/21 release 24 hr theophylline 400 mg 800 mg PO DAILY 05/18/21 07/30/21 capsule,extended release 24 hr (Arnoldo-24) ergocalciferol (vitamin D2) 1,250 1,250 mcg PO QWEEK 06/06/21 07/30/21 mcg (50,000 unit) capsule methadone 10 mg/mL oral concentrate 49 mg PO DAILY 06/06/21 07/31/21 insulin glargine 100 unit/mL 45 unit subcut BEDTIME 06/07/21 07/30/21 subcutaneous solution (Lantus U-100 Insulin) lisinopril 40 mg tablet 1 tab PO DAILY 07/30/21 07/30/21 sodium chloride 7 % for 4 ml inhalation BID 07/30/21 07/30/21 nebulization ibuprofen 600 mg tablet 600 mg PO Q6H PRN 09/04/21 Previous Rx's Medication Instructions Recorded immune glob,gamma(IgG) 10 40 g IV Q4W #2 ea 06/16/20 [id number] 0 to 50 mcg/mL IV solution ipratropium 0.5 mg-albuterol 3 mg 3 ml inhalation Q4H PRN for 10/30/20 (2.5 mg base)/3 mL nebulization wheezing #540 mL soln sennosides 8.6 mg tablet (Natural 8.6 mg PO BEDTIME PRN constipation 11/24/20 Senna Laxative) #30 tabs omeprazole 40 mg capsule,delayed 40 mg PO DAILY 30 days #30 caps 05/14/21 release tiotropium bromide 18 mcg capsule 1 cap inhalation DAILY #30 ea 06/25/21 with inhalation device (Spiriva with HandiHaler) acetaminophen 500 mg tablet 500 mg PO Q6H PRN pain or fever 06/27/21 (Tylenol Extra Strength) #20 tabs arformoterol 15 mcg/2 mL solution 2 ml inhalation Q12H 30 days #120 07/24/21 for nebulization (Brovana) mL budesonide 0.5 mg/2 mL suspension 0.5 mg (2 mL) inhalation BID #120 07/24/21 for nebulization mL hydralazine 10 mg tablet 10 mg PO TID #90 tabs 08/14/21 nicotine 21 mg/24 hr daily 21 mg transdermal DAILY #30 ea 08/14/21 transdermal patch prednisone 20 mg tablet 20 mg PO DAILY #60 tabs 08/14/21 diclofenac potassium 50 mg tablet 50 mg PO BID 30 days #60 tabs 09/04/21 levofloxacin 500 mg tablet 500 mg PO DAILY 8 days #8 tabs 09/04/21 amoxicillin 875 mg-potassium 1 tab PO Q12H 5 days #10 tabs 09/06/21 clavulanate 125 mg tablet <Josee Araya MD - Last Filed: 09/06/21 14:50> Allergies/Adverse Reactions: Allergies Allergy/AdvReac Type Severity Reaction Status Date / Time No Known Allergies Allergy Verified 09/04/21 10:23 [No Known Allergies*] <Josee Araya MD - Last Filed: 09/06/21 14:50> Review of Systems Review of Systems: Pertinent positives and negatives as stated in HPI 10 point review of systems is otherwise negative. <Josee Araya MD - Last Filed: 09/06/21 14:50> PMFSH Past Medical History Source: nursing notes reviewed <Josee Araya MD - Last Filed: 09/06/21 14:50> Medical History: Medical History Abdominal pain Abnormal chest x-ray Asthma-COPD overlap syndrome Chronic respiratory failure Chronic respiratory failure Congestive heart failure COPD (chronic obstructive pulmonary disease) Diabetes mellitus Essential hypertension Hyperlipidemia, unspecified Hypertensive cardiovascular disease Hypogammaglobulinemia Limb swelling Morbid obesity Opioid dependence Poor dentition Pulmonary nodule Rib fractures Status asthmaticus with COPD (chronic obstructive pulmonary disease) Tobacco abuse Type 2 diabetes mellitus Type 2 diabetes mellitus with unspecified complications <Josee Araya MD - Last Filed: 09/06/21 14:50> Surgical History: Surgical History H/O tubal ligation <Josee Araya MD - Last Filed: 09/06/21 14:50> Family History Family History: Family History Father Diabetes Other Asthma <Josee Araya MD - Last Filed: 09/06/21 14:50> Social History Social History: Social History Household Members: Children Household Members Other:: 3 Housing: Apartment Do you presently have visiting nurse or other home services: No Unable to assess alcohol history related to: Unknown Alcohol intake: never Patient Tobacco Use Status: Former Tobacco user Tobacco use type: Cigarette Cigarettes Per Day: 1 Years Smoked: 35 Smoked in Last 30 Days: No e-Cigarette/Vaping Use: Currently Using Second Hand Smoke Exposure: No Use of substances other than those prescribed or required for medical reasons: No Substance Use Type: Opiates Advance Directives: Yes Advance Directives on File: Yes Advance Directives Date on File: 06/12/21 service: No Current occupational status: unemployed and disabled <Josee Araya MD - Last Filed: 09/06/21 14:50> Physical Exam Vital Signs: Vital Signs: Last Vital Signs Temp 98.4 F 09/06/21 14:06 Pulse 98 09/06/21 14:06 Resp 18 09/06/21 14:06 BP 125/75 09/06/21 14:06 Pulse Ox 95 09/06/21 14:06 O2 Del Method 09/06/21 14:06 O2 Flow Rate 2 09/06/21 14:06 Oxygen Flow Rate 2 09/06/21 12:41 BMI result Body Mass Index 35.5 VITAL SIGNS: Reviewed. GENERAL: Well developed, well nourished, in no acute distress. HEAD: Normocephalic/atraumatic EYES: PERRLA, EOMI EARS: Ext canals without abnormality OROPHARYNX: no oral lesions noted, posterior pharynx clear LUNGS: Normal breath sounds. No adventitious sounds or accessory muscle use. SpO2<95> CARDIOVASCULAR: Regular rate and rhythm without noted murmurs, no JVD or lower extremity edema. ABDOMEN: Soft, non-tender, non-distended with bowel sounds. MUSCULOSKELETAL: No tenderness, deformities, or effusions noted on gross inspection. EXTREMITIES: No cyanosis, clubbing or edema; RIGHT KNEE: 4.5 cm superficial laceration to the right knee that is linear and appears to be clean. SKIN: Inspection of the skin reveals no rashes NEUROLOGIC: Alert and oriented x 4. Strength and sensation to light touch were grossly intact x 4. <Josee Araya MD - Last Filed: 09/06/21 14:50> Vital Signs: Last Vital Signs Temp 98.4 F 09/06/21 14:06 Pulse 98 09/06/21 14:06 Resp 18 09/06/21 14:06 BP 125/75 09/06/21 14:06 Pulse Ox 95 09/06/21 14:06 O2 Del Method 09/06/21 14:06 O2 Flow Rate 2 09/06/21 14:06 Oxygen Flow Rate 2 09/06/21 12:41 BMI result Body Mass Index 35.5 <MAUREEN Manriquez - Last Filed: 09/06/21 15:02> Course Course Course Narrative: 51-year-old female with history and clinical presentation consistent with mechanical fall and subsequent laceration to the right knee. Retention sutures to be placed, patient is not needing it Tdap at this time. Patient will be discharged on antibiotics since she is diabetic. <Josee Araya MD - Last Filed: 09/06/21 14:50> Procedures Laceration Laceration 1: Site: lower extremity (inferior to knee) <MAUREEN Manriquez - Last Filed: 09/06/21 15:02> Side (If applicable): right <MAUREEN Manriquez - Last Filed: 09/06/21 15:02> Size (cm): 5 <MAUREEN Manriquez - Last Filed: 09/06/21 15:02> Description: linear and flap <MAUREEN Manriquez - Last Filed: 09/06/21 15:02> Depth: simple, single layer <MAUREEN Manriquez - Last Filed: 09/06/21 15:02> Local Anesthetic: lidocaine 1% <MAUREEN Manriquez - Last Filed: 09/06/21 15:02> Amount of anesthesia used (mL): 10 <MAUREEN Manriquez - Last Filed: 09/06/21 15:02> Pre-repair: irrigated extensively and deep structures intact <MAUREEN Manriquez - Last Filed: 09/06/21 15:02> Skin layer closed with: other (prolene) <MAUREEN Manriquez - Last Filed: 09/06/21 15:02> Size (cm): 4-0 <MAUREEN Manriquez - Last Filed: 09/06/21 15:02> Number of sutures: 8 <MAUREEN Manriquez - Last Filed: 09/06/21 15:02> Technique: other (vertical mattress) <MAUREEN Manriquez - Last Filed: 09/06/21 15:02> Discharge Plan Discharge Clinical Impression: Laceration of knee, right <Josee Araya MD - Last Filed: 09/06/21 14:50> Patient Disposition: Home, Self-Care <Josee Araya MD - Last Filed: 09/06/21 14:50> Additional Instructions: 1. Resume all home medications. 2. Complete the entire course of antibiotics. 3. These sutures need to be removed in 10 days, this can be done by your primary care provider or you can return to this facility. 4. You may gently wash with soap and water and then blot dry with re-application of antibiotic ointment. Return to the ER for worsening symptoms. <Josee Araya MD - Last Filed: 09/06/21 14:50> Prescriptions: New amoxicillin-pot clavulanate 875-125 mg tablet 1 tab PO Q12H 5 Days Qty: 10 0RF No Action immun glob [id number]-nol-hrfi-IgA 0-50 10 gram recon soln 40 g IV Q4W Qty: 2 12RF ipratropium-albuterol 0.5 mg-3 mg(2.5 mg base)/3 mL solution for nebulization 3 ml inhalation Q4H PRN (Reason: for wheezing) Qty: 540 6RF Spiriva with HandiHaler 18 mcg capsule, w/inhalation device 1 cap inhalation DAILY Qty: 30 11RF levofloxacin 500 mg tablet 500 mg PO DAILY 8 Days Qty: 8 0RF gabapentin 100 mg capsule 1 cap PO BID diltiazem HCl [Tiadylt ER] 360 mg capsule,extended release 24 hr 1 cap PO DAILY rosuvastatin 5 mg tablet 1 tab PO BEDTIME Daliresp 500 mcg tablet 1 tab PO DAILY lidocaine 5 % adhesive patch,medicated 1 patch topical DAILY insulin lispro [Humalog U-100 Insulin] 100 unit/mL solution See Protocol subcut TIDAC Protocol: Insulin Correction Scale Less than or equal to 110 ---- Give (units): 0 111 to 150 Give (units): 0 151 to 200 Give (units): 2 201 to 250 Give (units): 4 251 to 300 Give (units): 6 301 to 350 Give (units): 8 Greater than 350 Give (units): 10 Call MD if Blood Glucose > : 350 metformin 500 mg tablet extended release 24 hr 2 tab PO BID acetaminophen [Tylenol Extra Strength] 500 mg tablet 500 mg PO Q6H PRN (Reason: pain or fever) Qty: 20 0RF Arnoldo-24 400 mg capsule,extended release 24hr 800 mg PO DAILY methadone 10 mg/mL Concentrate 49 mg PO DAILY ergocalciferol (vitamin D2) 1,250 mcg (50,000 unit) capsule 1,250 mcg PO QWEEK Lantus U-100 Insulin 100 unit/mL solution 45 unit subcut BEDTIME Label Comments: pt states she takes 45 units at home, confirmed with pharmacy 05/10 lisinopril 40 mg tablet 1 tab PO DAILY sodium chloride 7 % Solution For Nebulization 4 ml INHALATION BID hydralazine 10 mg Tablet 10 mg PO TID Qty: 90 0RF Protocol: Hold for SBP< HOLD for SBP < : 90 nicotine 21 mg/24 hr Patch 24 Hour 21 mg transdermal DAILY Qty: 30 0RF prednisone 20 mg tablet 20 mg PO DAILY Qty: 60 0RF Rx Instructions: Take prednisone 40 mg (2 tablets prednisone 20 mg) for 4 days then take prednisone 20 mg daily. montelukast 10 mg tablet 10 mg PO BEDTIME albuterol sulfate [ProAir HFA] 90 mcg/actuation HFA aerosol inhaler 2 puff inhalation Q4H PRN (Reason: Shortness Of Breath Or Wheezing) loratadine [Claritin] 10 mg tablet 10 mg PO DAILY sennosides [Natural Senna Laxative] 8.6 mg tablet 8.6 mg PO BEDTIME PRN (Reason: constipation) Qty: 30 3RF omeprazole 40 mg capsule,delayed release(DR/EC) 40 mg PO DAILY 30 Days Qty: 30 3RF ibuprofen 600 mg tablet 600 mg PO Q6H PRN diclofenac potassium 50 mg tablet 50 mg PO BID 30 Days Qty: 60 0RF Brovana 15 mcg/2 mL solution for nebulization 2 ml inhalation Q12H 30 Days Qty: 120 11RF budesonide 0.5 mg/2 mL suspension for nebulization 0.5 mg inhalation BID Qty: 120 11RF <Josee Araya MD - Last Filed: 09/06/21 14:50> Referrals: Kelli Benavides MD [Primary Care Provider] - <Josee Araya MD - Last Filed: 09/06/21 14:50> Interventions: ED Discharge Assessment Last Done: 09/06/21 15:01 <Josee Araya MD - Last Filed: 09/06/21 14:50> Discharge Date/Time: 09/06/21 15:01 <Josee Araya MD - Last Filed: 09/06/21 14:50>
[2021-09-06 14:06] VITALS: BP 125/75; PULSE 98; RESP 18; TEMP 36.9; O2SAT 95
[2021-09-06] MEDS: Lidocaine HCl 1 % MPF 5 ML VIAL 10 ML SUBCUT (14:24)
[2021-09-06] MEDS: Ibuprofen 400 MG TABLET PO (14:57)
[2021-09-06] MEDS: Acetaminophen 325 MG TABLET 975 MG PO (14:57)
== END 2021-09-06 15:01 | disposition home or self-care (01) ==
PROVIDERS: Emergency Provider Student in an Organized Health Care Education/Training Program; PCP Family Medicine
DX: S81.011A Laceration without foreign body, right knee, initial encounter (principal); I10 Essential (primary) hypertension; E11.9 Type 2 diabetes mellitus without complications; J44.9 Chronic obstructive pulmonary disease, unspecified; W19.XXXA Unspecified fall, initial encounter; Y93.9 Activity, unspecified; Y92.9 Unspecified place or not applicable; Y99.9 Unspecified external cause status
CPT/HCPCS: 12002; 99284

== ENCOUNTER 2021-09-23 20:07 | Inpatient (IN) | payer MEDICAID, SELFPAY ==
--- NOTE | ~2021-09-23 | XR_ITS ---
EXAMINATION: XR CHEST CLINICAL INFORMATION: Dyspnea COMPARISON: CT chest 08/04/2021 and chest radiograph 08/03/2021 TECHNIQUE: Frontal view of the chest was obtained. FINDINGS: Heart size within normal limits. Compared to the prior study, there's been improvement in the pulmonary infiltrates with some minimal abnormality remaining peripherally in the left upper lobe. No gross consolidation or pleural effusions. Again noted are healing bilateral rib fractures. XR/XR chest 1V IMPRESSION: Improvement in appearance of the pulmonary infiltrates compared to the prior chest radiograph. Some abnormality remains.
[2021-09-23] MEDS: Magnesium Sulfate/H2O 2 GM/50 ML PIGGYBACK IV (20:25)
[2021-09-23 20:28] VITALS: BP 136/77; PULSE 92; RESP 20; TEMP 37.1; O2SAT 85; O2SAT 98; BMI 40.1
--- NOTE | 2021-09-23 20:29 | ED.ASTHMA ---
HPI - Asthma General Chief Complaint: Upper Respiratory Symptoms Stated Complaint: dif. breathing Time Seen by Provider: 09/23/21 20:07 Source: patient and old records reviewed Mode of arrival: EMS Limitations: no limitations History of Present Illness HPI Narrative: 51 yo female with hx of COPD/asthma, HTN, DM, HLD, obesity, DM, chronic smoker, on methadone uses Bipap at night and during the day. States she has been having trouble breathing for 3 days with a cough - taking nebs and unspecified antibiotics for 3 days that I cannot find in her EMR. She is using her home O2. MD complaint: asthma attack , shortness of breath and wheezing Onset (ago): day(s) (3) Severity: moderate and similar to prior Context: smoke exposure Associated symptoms: productive cough Asthma History: childhood onset Treatments Prior to Arrival: inhaled bronchodilator, oxygen, CPAP and other (IV solumedrol by EMS) Related Data Home Medications Medication Instructions Recorded Confirmed albuterol sulfate 90 mcg/actuation 2 puff inhalation Q4H PRN 12/30/19 07/30/21 aerosol inhaler (ProAir HFA) Shortness Of Breath Or Wheezing loratadine 10 mg tablet (Claritin) 10 mg PO DAILY 12/30/19 07/30/21 montelukast 10 mg tablet 10 mg PO BEDTIME 12/30/19 07/30/21 gabapentin 100 mg capsule 1 cap PO BID 10/14/20 07/30/21 diltiazem HCl 360 mg capsule,24 1 cap PO DAILY 11/16/20 07/30/21 hr,extended release (Tiadylt ER) roflumilast 500 mcg tablet 1 tab PO DAILY 11/16/20 07/30/21 (Daliresp) rosuvastatin 5 mg tablet 1 tab PO BEDTIME 11/16/20 07/30/21 insulin lispro 100 unit/mL See Protocol subcut TIDAC 12/14/20 07/30/21 subcutaneous solution (Humalog U-100 Insulin) lidocaine 5 % topical patch 1 patch topical DAILY 12/14/20 07/30/21 metformin 500 mg tablet,extended 2 tab PO BID 05/18/21 07/30/21 release 24 hr ergocalciferol (vitamin D2) 1,250 1,250 mcg PO QWEEK 06/06/21 07/30/21 mcg (50,000 unit) capsule methadone 10 mg/mL oral concentrate 49 mg PO DAILY 06/06/21 07/31/21 insulin glargine 100 unit/mL 45 unit subcut BEDTIME 06/07/21 07/30/21 subcutaneous solution (Lantus U-100 Insulin) lisinopril 40 mg tablet 1 tab PO DAILY 07/30/21 07/30/21 sodium chloride 7 % for 4 ml inhalation BID 07/30/21 07/30/21 nebulization ibuprofen 600 mg tablet 600 mg PO Q6H PRN 09/04/21 Previous Rx's Medication Instructions Recorded immune glob,gamma(IgG) 10 40 g IV Q4W #2 ea 06/16/20 engf-[id number] 0 to 50 mcg/mL IV solution ipratropium 0.5 mg-albuterol 3 mg 3 ml inhalation Q4H PRN for 10/30/20 (2.5 mg base)/3 mL nebulization wheezing #540 mL soln sennosides 8.6 mg tablet (Natural 8.6 mg PO BEDTIME PRN constipation 11/24/20 Senna Laxative) #30 tabs tiotropium bromide 18 mcg capsule 1 cap inhalation DAILY #30 ea 06/25/21 with inhalation device (Spiriva with HandiHaler) acetaminophen 500 mg tablet 500 mg PO Q6H PRN pain or fever 06/27/21 (Tylenol Extra Strength) #20 tabs arformoterol 15 mcg/2 mL solution 2 ml inhalation Q12H 30 days #120 07/24/21 for nebulization (Brovana) mL budesonide 0.5 mg/2 mL suspension 0.5 mg (2 mL) inhalation BID #120 07/24/21 for nebulization mL hydralazine 10 mg tablet 10 mg PO TID #90 tabs 08/14/21 nicotine 21 mg/24 hr daily 21 mg transdermal DAILY #30 ea 08/14/21 transdermal patch prednisone 20 mg tablet 20 mg PO DAILY #60 tabs 08/14/21 diclofenac potassium 50 mg tablet 50 mg PO BID 30 days #60 tabs 09/04/21 levofloxacin 500 mg tablet 500 mg PO DAILY 8 days #8 tabs 09/04/21 amoxicillin 875 mg-potassium 1 tab PO Q12H 5 days #10 tabs 09/06/21 clavulanate 125 mg tablet doxycycline hyclate 100 mg capsule 100 mg PO BID 10 days #20 caps 09/19/21 gabapentin 300 mg capsule 300 mg PO BID 30 days #60 caps 09/19/21 omeprazole 40 mg capsule,delayed 40 mg PO DAILY 30 days #30 caps 09/20/21 release Allergies Allergy/AdvReac Type Severity Reaction Status Date / Time No Known Allergies Allergy Verified 09/04/21 10:23 [No Known Allergies*] Review of Systems Review of Systems: Constitutional : No Fever, No Chills ENT/Mouth : No Hoarseness, No sore throat, No Rhinorrhea Eyes: No Redness, No Discharge, No Vision Changes Cardiovascular : No Chest Pain, positive SOB, positive Dyspnea on Exertion, No Edema Respiratory : positive Cough, pos Sputum, positive Wheezing, Gastrointestinal : No Nausea, No Vomiting, No Diarrhea, No abdominal Pain Genitourinary : No Dysuria, No Hematuria Musculoskeletal : No joint pain, No Myalgias Skin : No rash Neuro : No Weakness, No Numbness, No Headache Psych : No anxiety, depression Heme/Lymph: No Bruising, No Bleeding Endocrine : No Polyuria, No Polydipsia All other systems reviewed and are negative [facility] Past Medical History Attestation statement: The following information was validated with the patient. Source: old records reviewed Medical History Abdominal pain Abnormal chest x-ray Asthma-COPD overlap syndrome Chronic respiratory failure Chronic respiratory failure Congestive heart failure COPD (chronic obstructive pulmonary disease) Diabetes mellitus Essential hypertension Hyperlipidemia, unspecified Hypertensive cardiovascular disease Hypogammaglobulinemia Limb swelling Morbid obesity Opioid dependence Poor dentition Pulmonary nodule Rib fractures Status asthmaticus with COPD (chronic obstructive pulmonary disease) Tobacco abuse Type 2 diabetes mellitus Type 2 diabetes mellitus with unspecified complications Surgical History H/O tubal ligation Family History Family History Father Diabetes Other Asthma Social History Social History Household Members: Children Household Members Other:: 3 Housing: Apartment Do you presently have visiting nurse or other home services: No Unable to assess alcohol history related to: Unknown Alcohol intake: never Patient Tobacco Use Status: Former Tobacco user Tobacco use type: Cigarette Cigarettes Per Day: 1 Years Smoked: 35 e-Cigarette/Vaping Use: Currently Using Second Hand Smoke Exposure: No Substance Use Type: Opiates Advance Directives: Yes Advance Directives on File: Yes Advance Directives Date on File: 06/12/21 service: No Current occupational status: unemployed and disabled Physical Exam Vital Signs: Vital Signs: Last Vital Signs Temp 98.8 F 09/23/21 20:28 Pulse 88 09/23/21 20:32 Resp 22 H 09/23/21 20:32 BP 136/77 09/23/21 20:28 Pulse Ox 98 09/23/21 20:28 O2 Del Method 09/23/21 20:28 Oxygen Flow Rate 4 09/23/21 20:28 BMI result Body Mass Index 40.1 Appearance: Alert. Oriented X3. Mild acute distress. Eyes: Pupils equal, round and reactive to light. ENT: Pharynx normal. Neck: Normal inspection. Neck supple. CVS: Normal heart rate and rhythm. Pulses normal. Respiratory: Mild respiratory distress - tachypnea and retractions. Breath sounds decreased with diffuse wheezes throughout Abdomen: Soft and nontender. Skin: Skin warm and dry. Normal skin color. Normal skin turgor. Extremities: pitting 1+ lower extremity edema. No calf ttp Neuro: Oriented X 3. No motor deficit. No sensory deficit. Course Course Course Narrative: chronic retainer - normal pH improved playing on her phone, will admit for further management MDM - Asthma MDM Narrative Medical decision making narrative: 51 yo female with hx of COPD/asthma, HTN, DM, HLD, obesity, DM, chronic smoker, on methadone uses Bipap at night at this time complained of increased wob x 3 days with cough - at this time given steroids by EMS, neb treatment, will need hour long 10mg neb, IV magnesium, labs, cultures, CXR - anticipate admission. She is a chronic retainer. Lab Data Result diagrams: 09/23/21 21:11 09/23/21 21:11 Labs: Lab Results 09/23/21 09/23/21 09/23/21 Range/Units 20:29 20:36 21:10 WBC (4.8-10.8) X10*3/uL RBC (4.20-5.50) X10*6/uL Hgb (12.0-16.0) g/dl Hct (37.0-47.0) % MCV (80.0-98.0) fL MCH (27.0-33.0) pg MCHC (31.0-35.0) g/dl RDW (11.0-16.0) % Plt Count (160-400) X10*3/uL MPV (9.4-12.3) fL Immature Gran % (Auto) (0.0-0.4) % Neut % (Auto) (45-73) % Lymph % (Auto) (20-40) % Andrews % (Auto) (2-11) % Eos % (Auto) (0-4) % Baso % (Auto) (0-2) % Lymph # (Auto) (1.2-4.9) X10*3/uL Andrews # (Auto) (0.1-1.2) X10*3/uL Eos # (Auto) (0.0-0.4) X10*3/uL Baso # (Auto) (0.0-0.2) X10*3/uL Abs Immat Gran (auto) (0.00-0.03) X10*3/uL Absolute Neuts (auto) (2.0-8.3) x10*3/uL Absolute Nucleated RBC (0.0-0.012) X10*3/uL Nucleated RBC % (auto) (0.0-0.2) /100WBC Smear Tech's Comments PT (10.0-13.1) SEC INR (0.9-1.1) O2 Saturation Cancelled 99.0 ABG pH at Pt Temp Cancelled 7.36 ABG pH (Temp Correct) Cancelled ABG pCO2 at Pt Temp Cancelled 89 H* ABG pCO2 (Temp Corrct Cancelled ABG pO2 at Pt Temp Cancelled 128 H ABG pO2 (Temp Correct Cancelled ABG HCO3 Cancelled 51 H ABG Base Excess (Actual) Cancelled 20.8 Sodium (135-145) mmol/L Potassium (3.3-5.1) mmol/L Chloride (96-108) mmol/L Carbon Dioxide (22-29) mmol/L Anion Gap (12-20) BUN (9-16) mg/dL Creatinine (0.5-1.4) mg/dL Estim Creat Clear Calc Estimated GFR Random Glucose (60-115) mg/dL Lactic Acid 0.9 (0.5-2.0) mmol/L Calcium (8.4-10.2) mg/dL Magnesium (1.6-2.6) mg/dL Total Bilirubin (0.0-1.0) mg/dL Direct Bilirubin (0.0-0.5) mg/dL AST (5-31) U/L ALT (0-31) U/L Alkaline Phosphatase (39-117) U/L Troponin I High Sens (<3.5-17.0) ng/L B-Natriuretic Peptide (<100) pg/mL Total Protein (6.5-8.0) g/dL Albumin (3.5-5.0) g/dL Lipase (8-78) U/L Procalcitonin ng/mL COVID-19 ([facility]AP[facility]) (Negative) COVID-19 Clin Com 09/23/21 09/23/21 09/23/21 Range/Units 21:10 21:11 21:11 WBC 19.7 H (4.8-10.8) X10*3/uL RBC 3.98 L (4.20-5.50) X10*6/uL Hgb 11.8 L (12.0-16.0) g/dl Hct 39.5 (37.0-47.0) % MCV 99.2 H (80.0-98.0) fL MCH 29.6 (27.0-33.0) pg MCHC 29.9 L (31.0-35.0) g/dl RDW 13.6 (11.0-16.0) % Plt Count 290 (160-400) X10*3/uL MPV 9.0 L (9.4-12.3) fL Immature Gran % (Auto) 1.0 H (0.0-0.4) % Neut % (Auto) 91.2 H (45-73) % Lymph % (Auto) 4.6 L (20-40) % Andrews % (Auto) 3.0 (2-11) % Eos % (Auto) 0.0 (0-4) % Baso % (Auto) 0.2 (0-2) % Lymph # (Auto) 0.9 L (1.2-4.9) X10*3/uL Andrews # (Auto) 0.6 (0.1-1.2) X10*3/uL Eos # (Auto) 0.0 (0.0-0.4) X10*3/uL Baso # (Auto) 0.0 (0.0-0.2) X10*3/uL Abs Immat Gran (auto) 0.19 H (0.00-0.03) X10*3/uL Absolute Neuts (auto) 18.0 H (2.0-8.3) x10*3/uL Absolute Nucleated RBC 0.000 (0.0-0.012) X10*3/uL Nucleated RBC % (auto) 0.0 (0.0-0.2) /100WBC Smear Tech's Comments VERIFIED PT 9.8 L (10.0-13.1) SEC INR 0.9 (0.9-1.1) O2 Saturation ABG pH at Pt Temp ABG pH (Temp Correct) ABG pCO2 at Pt Temp ABG pCO2 (Temp Corrct ABG pO2 at Pt Temp ABG pO2 (Temp Correct ABG HCO3 ABG Base Excess (Actual) Sodium (135-145) mmol/L Potassium (3.3-5.1) mmol/L Chloride (96-108) mmol/L Carbon Dioxide (22-29) mmol/L Anion Gap (12-20) BUN (9-16) mg/dL Creatinine (0.5-1.4) mg/dL Estim Creat Clear Calc Estimated GFR Random Glucose (60-115) mg/dL Lactic Acid (0.5-2.0) mmol/L Calcium (8.4-10.2) mg/dL Magnesium (1.6-2.6) mg/dL Total Bilirubin (0.0-1.0) mg/dL Direct Bilirubin (0.0-0.5) mg/dL AST (5-31) U/L ALT (0-31) U/L Alkaline Phosphatase (39-117) U/L Troponin I High Sens 7.1 (<3.5-17.0) ng/L B-Natriuretic Peptide (<100) pg/mL Total Protein (6.5-8.0) g/dL Albumin (3.5-5.0) g/dL Lipase (8-78) U/L Procalcitonin ng/mL COVID-19 ([facility]) (Negative) COVID-19 Clin Com 09/23/21 09/23/21 09/23/21 Range/Units 21:11 21:11 21:11 WBC (4.8-10.8) X10*3/uL RBC (4.20-5.50) X10*6/uL Hgb (12.0-16.0) g/dl Hct (37.0-47.0) % MCV (80.0-98.0) fL MCH (27.0-33.0) pg MCHC (31.0-35.0) g/dl RDW (11.0-16.0) % Plt Count (160-400) X10*3/uL MPV (9.4-12.3) fL Immature Gran % (Auto) (0.0-0.4) % Neut % (Auto) (45-73) % Lymph % (Auto) (20-40) % Andrews % (Auto) (2-11) % Eos % (Auto) (0-4) % Baso % (Auto) (0-2) % Lymph # (Auto) (1.2-4.9) X10*3/uL Andrews # (Auto) (0.1-1.2) X10*3/uL Eos # (Auto) (0.0-0.4) X10*3/uL Baso # (Auto) (0.0-0.2) X10*3/uL Abs Immat Gran (auto) (0.00-0.03) X10*3/uL Absolute Neuts (auto) (2.0-8.3) x10*3/uL Absolute Nucleated RBC (0.0-0.012) X10*3/uL Nucleated RBC % (auto) (0.0-0.2) /100WBC Smear Tech's Comments PT (10.0-13.1) SEC INR (0.9-1.1) O2 Saturation ABG pH at Pt Temp ABG pH (Temp Correct) ABG pCO2 at Pt Temp ABG pCO2 (Temp Corrct ABG pO2 at Pt Temp ABG pO2 (Temp Correct ABG HCO3 ABG Base Excess (Actual) Sodium 143 (135-145) mmol/L Potassium 4.7 (3.3-5.1) mmol/L Chloride 96 (96-108) mmol/L Carbon Dioxide 38 H (22-29) mmol/L Anion Gap 14 (12-20) BUN 13 (9-16) mg/dL Creatinine 0.53 (0.5-1.4) mg/dL Estim Creat Clear Calc 133.2 Estimated GFR > 60 Random Glucose 124 H (60-115) mg/dL Lactic Acid (0.5-2.0) mmol/L Calcium 9.7 (8.4-10.2) mg/dL Magnesium 2.4 (1.6-2.6) mg/dL Total Bilirubin 0.5 (0.0-1.0) mg/dL Direct Bilirubin 0.3 (0.0-0.5) mg/dL AST 17 (5-31) U/L ALT 36 H (0-31) U/L Alkaline Phosphatase 109 D (39-117) U/L Troponin I High Sens (<3.5-17.0) ng/L B-Natriuretic Peptide 28 (<100) pg/mL Total Protein 6.4 L (6.5-8.0) g/dL Albumin 4.0 D (3.5-5.0) g/dL Lipase 6 L (8-78) U/L Procalcitonin 0.06 ng/mL COVID-19 ([facility]) (Negative) COVID-19 Clin Com 09/23/21 Range/Units 21:11 WBC (4.8-10.8) X10*3/uL RBC (4.20-5.50) X10*6/uL Hgb (12.0-16.0) g/dl Hct (37.0-47.0) % MCV (80.0-98.0) fL MCH (27.0-33.0) pg MCHC (31.0-35.0) g/dl RDW (11.0-16.0) % Plt Count (160-400) X10*3/uL MPV (9.4-12.3) fL Immature Gran % (Auto) (0.0-0.4) % Neut % (Auto) (45-73) % Lymph % (Auto) (20-40) % Andrews % (Auto) (2-11) % Eos % (Auto) (0-4) % Baso % (Auto) (0-2) % Lymph # (Auto) (1.2-4.9) X10*3/uL Andrews # (Auto) (0.1-1.2) X10*3/uL Eos # (Auto) (0.0-0.4) X10*3/uL Baso # (Auto) (0.0-0.2) X10*3/uL Abs Immat Gran (auto) (0.00-0.03) X10*3/uL Absolute Neuts (auto) (2.0-8.3) x10*3/uL Absolute Nucleated RBC (0.0-0.012) X10*3/uL Nucleated RBC % (auto) (0.0-0.2) /100WBC Smear Tech's Comments PT (10.0-13.1) SEC INR (0.9-1.1) O2 Saturation ABG pH at Pt Temp ABG pH (Temp Correct) ABG pCO2 at Pt Temp ABG pCO2 (Temp Corrct ABG pO2 at Pt Temp ABG pO2 (Temp Correct ABG HCO3 ABG Base Excess (Actual) Sodium (135-145) mmol/L Potassium (3.3-5.1) mmol/L Chloride (96-108) mmol/L Carbon Dioxide (22-29) mmol/L Anion Gap (12-20) BUN (9-16) mg/dL Creatinine (0.5-1.4) mg/dL Estim Creat Clear Calc Estimated GFR Random Glucose (60-115) mg/dL Lactic Acid (0.5-2.0) mmol/L Calcium (8.4-10.2) mg/dL Magnesium (1.6-2.6) mg/dL Total Bilirubin (0.0-1.0) mg/dL Direct Bilirubin (0.0-0.5) mg/dL AST (5-31) U/L ALT (0-31) U/L Alkaline Phosphatase (39-117) U/L Troponin I High Sens (<3.5-17.0) ng/L B-Natriuretic Peptide (<100) pg/mL Total Protein (6.5-8.0) g/dL Albumin (3.5-5.0) g/dL Lipase (8-78) U/L Procalcitonin ng/mL COVID-19 ([facility]AP[facility]) Negative (Negative) COVID-19 Clin Com See Note Critical Care Time Critical Care Time Critical Care Time: Yes Total Critical Care Time: 45 Attestation: review of records, hour long neb, reassessmens, ABG interpretation I attest to this time spent taking care of the patient Discharge Plan Discharge Clinical Impression: Acute exacerbation of COPD with asthma Patient Disposition: Admitted As Inpatient
[2021-09-23 20:31] VITALS: O2SAT 90
[2021-09-23 20:32] VITALS: PULSE 88; RESP 22; O2SAT 90
[2021-09-23] MEDS: Albuterol Sulfate (0.083%) 2.5 MG/3 ML VIAL.NEB 10 MG INHALE (20:32)
[2021-09-23 20:54] LABS: ABG Refer to POC result
[2021-09-23 20:56] LABS: ABG Base Excess 20.8 mmol/L; ABG HCO3 51 mmol/L (22-26); ABG pCO2 89 mmHg (32-45); ABG pH 7.36 (7.35-7.45); ABG pO2 128 mmHg (83-108)
[2021-09-23 21:21] LABS: Basophils Percent Auto 0.2 % (0-2); Hematocrit 39.5 % (37.0-47.0); Hemoglobin 11.8 g/dl (12.0-16.0); Imm Gran Abs Auto 0.19 X10*3/uL (0.00-0.03); Lymphocytes Absolute Auto 0.9 X10*3/uL (1.2-4.9); Lymphocytes Percent Auto 4.6 % (20-40); MANUAL DIFF FLAG SCAN; Mean Corpuscular HGB Conc 29.9 g/dl (31.0-35.0); Mean Corpuscular Hemoglobin 29.6 pg (27.0-33.0); Mean Corpuscular Volume 99.2 fL (80.0-98.0); Monocytes Absolute Auto 0.6 X10*3/uL (0.1-1.2); Neutrophils Percent Auto 91.2 % (45-73); Platelet Count 290 X10*3/uL (160-400); Red Blood Count 3.98 X10*6/uL (4.20-5.50); Red Cell Distribution Width 13.6 % (11.0-16.0); SCAN SMEAR FLAG 1; White Blood Count 19.7 X10*3/uL (4.8-10.8)
[2021-09-23 21:25] LABS: Lactic Acid 0.9 mmol/L (0.5-2.0)
[2021-09-23 21:26] LABS: INTERNATIONAL NORM RATIO 0.9 (0.9-1.1); Prothrombin Time 9.8 SEC (10.0-13.1)
[2021-09-23 21:36] LABS: Alanine Aminotransferase 36 U/L (0-31); Alkaline Phosphatase 109 U/L (39-117); Anion Gap 14 (12-20); Aspartate Amino Transferase 17 U/L (5-31); Bilirubin Direct 0.3 mg/dL (0.0-0.5); Bilirubin Total 0.5 mg/dL (0.0-1.0); Blood Urea Nitrogen 13 mg/dL (9-16); COVID-19 Test Negative (Negative); Calcium 9.7 mg/dL (8.4-10.2); Carbon Dioxide 38 mmol/L (22-29); Chloride 96 mmol/L (96-108); Creatinine Clr Calc Pharmacy 133.2; Estimated Glomerular Filt Rate > 60; Glucose Random 124 mg/dL (60-115); Lipase 6 U/L (8-78); Magnesium 2.4 mg/dL (1.6-2.6); Potassium 4.7 mmol/L (3.3-5.1); Sodium 143 mmol/L (135-145); Total Protein 6.4 g/dL (6.5-8.0)
[2021-09-23 21:38] LABS: SLIDE REVIEW VERIFIED
[2021-09-23 21:39] LABS: B Type Natriuretic Peptide 28 pg/mL (<100)
[2021-09-23 21:40] LABS: Troponin-I High Sensitivity 7.1 ng/L (<3.5-17.0)
[2021-09-23] MEDS: cefTRIAXone sodium 1 GM in 0.9 % Sodium Chloride 50 ML IV (21:46)
[2021-09-23 21:55] LABS: Procalcitonin 0.06 ng/mL
[2021-09-23] MEDS: Azithromycin 500 MG in 0.9 % Sodium Chloride 250 ML 125 MG IV (22:51)
[2021-09-23] MEDS: methylPREDNISolone Sod Succ 40 MG/ML VIAL IVPUSH (23:27)
[2021-09-23] MEDS: Enoxaparin Sodium 40 MG/0.4 ML SYRINGE SUBCUT (23:28)
[2021-09-23] MEDS: Melatonin 3 MG TABLET 6 MG PO (23:30)
--- NOTE | 2021-09-23 23:36 | P.HPHOSP_ITS ---
History of Present Illness Date of Service: 09/23/21 Chief Complaint: sob 51-year-old female with a past medical history of hypertension, hyperlipidemia, diabetes, asthma/COPD, chronic respiratory failure on home oxygen, CPAP at night, obesity, opiate dependence on methadone, pulmonary nodule, CHF, hypogammaglobinemia; had recurrent admissions for COPD exacerbation presented to the hospital today with a chief complaint of shortness of breath. Patient reported that over the past 3 days she has been having cough and shortness of breath which has been gradually worsening; tried her home inhalers with no significant improvement. Complains of cough with the no sputum production. Denies any fevers. Denies any chest pain or palpitations. Denies any GI symptoms. Review of all other systems is negative except mentioned above ER course: Per ER team patient on presentation noted to be tight on examination concerning for COPD exacerbation. Given nebulizations and steroids. Not in respiratory d istress. On supplemental oxygen. Admitted for further management. [facility] Medical History Abdominal pain Abnormal chest x-ray Asthma-COPD overlap syndrome Chronic respiratory failure Chronic respiratory failure Congestive heart failure COPD (chronic obstructive pulmonary disease) Diabetes mellitus Essential hypertension Hyperlipidemia, unspecified Hypertensive cardiovascular disease Hypogammaglobulinemia Limb swelling Morbid obesity Opioid dependence Poor dentition Pulmonary nodule Rib fractures Status asthmaticus with COPD (chronic obstructive pulmonary disease) Tobacco abuse Type 2 diabetes mellitus Type 2 diabetes mellitus with unspecified complications Family History Father Diabetes Other Asthma Surgical History H/O tubal ligation Social History Household Members: Children Household Members Other:: 3 Housing: Apartment Do you presently have visiting nurse or other home services: No Unable to assess alcohol history related to: Unknown Alcohol intake: never Patient Tobacco Use Status: Former Tobacco user Tobacco use type: Cigarette Cigarettes Per Day: 1 Years Smoked: 35 e-Cigarette/Vaping Use: Currently Using Second Hand Smoke Exposure: No Substance Use Type: Opiates Advance Directives: Yes Advance Directives on File: Yes Advance Directives Date on File: 06/12/21 service: No Current occupational status: unemployed and disabled Meds Allergies Allergy/AdvReac Type Severity Reaction Status Date / Time No Known Allergies Allergy Verified 09/04/21 10:23 [No Known Allergies*] Active Medications: Current Medications Acetaminophen (Acetaminophen 325 Mg Tablet) 650 mg PO Q6H PRN PRN Reason: Pain, Mild (Pain Scale 1-3) Albuterol/Ipratropium (Albuterol/Iprat 2.5/0.5mg 3 Ml Ampul.Neb) 3 ml INHALE RQ4H WHILE AWAKE [facility] Azithromycin (Azithromycin 500 Mg Tablet) 500 mg PO Q24H [facility] Dextrose (Dextrose 50 % 25 Gm/50 Ml Syringe) 25 gm IVPUSH Q15M PRN; Protocol PRN Reason: per Hypoglycemia Standing Ord. Enoxaparin Sodium (Enoxaparin Sodium 40 Mg/0.4 Ml Syringe) 40 mg SUBCUT Q24H [facility] Last Admin: 09/23/21 23:28 Dose: 40 mg Glucose (Glucose Gel 15 Gm Gel..Gram.) 15 gm PO Q15M PRN; Protocol PRN Reason: per Hypoglycemia Standing Ord. Insulin Glargine (Insulin Glargine,Hum.Rec.Anlog 100 Unit/Ml 10 Ml Vial) 30 unit SUBCUT BEDTIME [facility] Insulin Human Lispro (Insulin Lispro 100 Unit/Ml 3 Ml Vial) 0 unit SUBCUT QIDACHS [facility]; Protocol Melatonin (Melatonin 3 Mg Tablet) 6 mg PO BEDTIME PRN PRN Reason: Insomnia Last Admin: 09/23/21 23:30 Dose: 6 mg Methylprednisolone Sodium Succinate (Methylprednisolone Sod Succ 40 Mg/Ml Vial) 40 mg IVPUSH Q6H [facility] Last Admin: 09/23/21 23:27 Dose: 40 mg Senna (Sennosides 8.6 Mg Tablet) 17.2 mg PO BEDTIME PRN PRN Reason: Constipation Sodium Chloride (0.9 % Sodium Chloride Flush 3 Ml Syringe) 3 ml IVFLUSH QSHIFT [facility] Last Admin: 09/23/21 23:29 Dose: Not Given Home Medications Medication Instructions Recorded Confirmed Last Taken Type albuterol sulfate 90 mcg/actuation 2 puff inhalation Q4H PRN 12/30/19 07/30/21 02/21/21 History aerosol inhaler (ProAir HFA) Shortness Of Breath Or Wheezing loratadine 10 mg tablet (Claritin) 10 mg PO DAILY 12/30/19 07/30/21 02/21/21 History montelukast 10 mg tablet 10 mg PO BEDTIME 12/30/19 07/30/21 02/20/21 History gabapentin 100 mg capsule 1 cap PO BID 10/14/20 07/30/21 02/21/21 History diltiazem HCl 360 mg capsule,24 1 cap PO DAILY 11/16/20 07/30/21 02/21/21 His tory hr,extended release (Tiadylt ER) roflumilast 500 mcg tablet 1 tab PO DAILY 11/16/20 07/30/21 02/21/21 History (Daliresp) rosuvastatin 5 mg tablet 1 tab PO BEDTIME 11/16/20 07/30/21 02/20/21 History insulin lispro 100 unit/mL See Protocol subcut TIDAC 12/14/20 07/30/21 02/21/21 History subcutaneous solution (Humalog U-100 Insulin) lidocaine 5 % topical patch 1 patch topical DAILY 12/14/20 07/30/21 02/21/21 History metformin 500 mg tablet,extended 2 tab PO BID 05/18/21 07/30/21 Unknown History release 24 hr ergocalciferol (vitamin D2) 1,250 1,250 mcg PO QWEEK 06/06/21 07/30/21 Unknown History mcg (50,000 unit) capsule methadone 10 mg/mL oral concentrate 49 mg PO DAILY 06/06/21 07/31/21 07/30/21 History insulin glargine 100 unit/mL 45 unit subcut BEDTIME 06/07/21 07/30/21 Unknown History subcutaneous solution (Lantus U-100 Insulin) lisinopril 40 mg tablet 1 tab PO DAILY 07/30/21 07/30/21 Unknown History sodium chloride 7 % for 4 ml inhalation BID 07/30/21 07/30/21 Unknown History nebulization ibuprofen 600 mg tablet 600 mg PO Q6H PRN 09/04/21 Unknown History Physical Exam Vital Signs and Narrative: Vital Signs: Last Vital Signs Temp 98.8 F 09/23/21 20:28 Pulse 88 09/23/21 20:32 Resp 22 H 09/23/21 20:32 BP 136/77 09/23/21 20:28 Pulse Ox 98 09/23/21 20:28 O2 Del Method 09/23/21 20:28 Oxygen Flow Rate 4 09/23/21 20:28 BMI result Body Mass Index 40.1 Gen: Appears be in no acute distress. Speaks in full sentences. On supplemental oxygen. HEENT: NCAT, Moist mucosa. Pulmonary: Diminished breath sounds bilaterally. CVS: Normal S1-S2 Abdomen: BS+, Soft, Nontender Extremities: Warm well perfused Neuro: Alert and awake. Results Labs CBC and Chem 7: 09/23/21 21:11 09/23/21 21:11 Labs: Laboratory Results - last 24 hr 09/23/21 09/23/21 09/23/21 20:29 20:36 21:10 MCV MCH MCHC RDW Plt Count MPV Immature Gran % (Auto) Neut % (Auto) Lymph % (Auto) Swift % (Auto) Eos % (Auto) Baso % (Auto) Lymph # (Auto) Swift # (Auto) Eos # (Auto) Baso # (Auto) Abs Immat Gran (auto) Absolute Neuts (auto) Absolute Nucleated RBC Nucleated RBC % (auto) Smear Tech's Comments PT INR O2 Saturation Cancelled 99.0 ABG pH at Pt Temp Cancelled 7.36 ABG pH (Temp Correct) Cancelled ABG pCO2 at Pt Temp Cancelled 89 H* ABG pCO2 (Temp Corrct Cancelled ABG pO2 at Pt Temp Cancelled 128 H ABG pO2 (Temp Correct Cancelled ABG HCO3 Cancelled 51 H ABG Base Excess (Actual) Cancelled 20.8 Anion Gap Estim Creat Clear Calc Estimated GFR Random Glucose Lactic Acid 0.9 Calcium Magnesium Total Bilirubin Direct Bilirubin AST ALT Alkaline Phosphatase Troponin I High Sens B-Natriuretic Peptide Total Protein Albumin Lipase Procalcitonin COVID-19 (PAPO) COVID-19 Clin Com 09/23/21 09/23/21 09/23/21 21:10 21:11 21:11 MCV 99.2 H MCH 29.6 MCHC 29.9 L RDW 13.6 Plt Count 290 MPV 9.0 L Immature Gran % (Auto) 1.0 H Neut % (Auto) 91.2 H Lymph % (Auto) 4.6 L Swift % (Auto) 3.0 Eos % (Auto) 0.0 Baso % (Auto) 0.2 Lymph # (Auto) 0.9 L Swift # (Auto) 0.6 Eos # (Auto) 0.0 Baso # (Auto) 0.0 Abs Immat Gran (auto) 0.19 H Absolute Neuts (auto) 18.0 H Absolute Nucleated RBC 0.000 Nucleated RBC % (auto) 0.0 Smear Tech's Comments VERIFIED PT 9.8 L INR 0.9 O2 Saturation ABG pH at Pt Temp ABG pH (Temp Correct) ABG pCO2 at Pt Temp ABG pCO2 (Temp Corrct ABG pO2 at Pt Temp ABG pO2 (Temp Correct ABG HCO3 ABG Base Excess (Actual) Anion Gap Estim Creat Clear Calc Estimated GFR Random Glucose Lactic Acid Calcium Magnesium Total Bilirubin Direct Bilirubin AST ALT Alkaline Phosphatase Troponin I High Sens 7.1 B-Natriuretic Peptide Total Protein Albumin Lipase Procalcitonin COVID-19 (PAPO) COVID-[employer] 09/23/21 09/23/21 09/23/21 21:11 21:11 21:11 MCV MCH MCHC RDW Plt Count MPV Immature Gran % (Auto) Neut % (Auto) Lymph % (Auto) Swift % (Auto) Eos % (Auto) Baso % (Auto) Lymph # (Auto) Swift # (Auto) Eos # (Auto) Baso # (Auto) Abs Immat Gran (auto) Absolute Neuts (auto) Absolute Nucleated RBC Nucleated RBC % (auto) Smear Tech's Comments PT INR O2 Saturation ABG pH at Pt Temp ABG pH (Temp Correct) ABG pCO2 at Pt Temp ABG pCO2 (Temp Corrct ABG pO2 at Pt Temp ABG pO2 (Temp Correct ABG HCO3 ABG Base Excess (Actual) Anion Gap 14 Estim Creat Clear Calc 133.2 Estimated GFR > 60 Random Glucose 124 H Lactic Acid Calcium 9.7 Magnesium 2.4 Total Bilirubin 0.5 Direct Bilirubin 0.3 AST 17 ALT 36 H Alkaline Phosphatase 109 D Troponin I High Sens B-Natriuretic Peptide 28 Total Protein 6.4 L Albumin 4.0 D Lipase 6 L Procalcitonin 0.06 COVID-19 (PAPO) COVID-19 [employer] Com 09/23/21 21:11 MCV MCH MCHC RDW Plt Count MPV Immature Gran % (Auto) Neut % (Auto) Lymph % (Auto) Swift % (Auto) Eos % (Auto) Baso % (Auto) Lymph # (Auto) Swift # (Auto) Eos # (Auto) Baso # (Auto) Abs Immat Gran (auto) Absolute Neuts (auto) Absolute Nucleated RBC Nucleated RBC % (auto) Smear Tech's Comments PT INR O2 Saturation ABG pH at Pt Temp ABG pH (Temp Correct) ABG pCO2 at Pt Temp ABG pCO2 (Temp Corrct ABG pO2 at Pt Temp ABG pO2 (Temp Correct ABG HCO3 ABG Base Excess (Actual) Anion Gap Estim Creat Clear Calc Estimated GFR Random Glucose Lactic Acid Calcium Magnesium Total Bilirubin Direct Bilirubin AST ALT Alkaline Phosphatase Troponin I High Sens B-Natriuretic Peptide Total Protein Albumin Lipase Procalcitonin COVID-19 (PAPO) Negative COVID-19 Clin Com See Note Imaging Radiologist's Impressions: Impressions Chest X-Ray 09/23/21 22:00 IMPRESSION: Improvement in appearance of the pulmonary infiltrates compared to the prior chest radiograph. Some abnormality remains. Assessment and Plan (1) Acute exacerbation of COPD with asthma: Status: Acute Plan 51-year-old female with a past medical history of hypertension, hyperlipidemia, diabetes, asthma/COPD, chronic respiratory failure on home oxygen, CPAP at night, obesity, opiate dependence on methadone, pulmonary nodule, CHF, hypogammaglobinemia; had recurrent admissions for COPD exacerbation presented to the hospital today with a chief complaint of shortness of breath. Noted to be in acute COPD exacerbation. Admitted for further management. Acute COPD exacerbation: Continue nebulizations standing and p.r.n. Solu-Medrol IV q.i.d. Azithromycin Supplemental oxygen p.r.n. with goal saturation at 93% Continue home BiPAP at night Pulmonology consult Hypertension/hyperlipidemia: Continue home medications hydralazine, lisinopril, statin History of opiate dependence: Patient on methadone. Addiction Medicine consult History of diabetes: Will keep the patient on Lantus 30 units plus insulin sliding scale. DVT prophylaxis: Lovenox Code status: Full code Quality Stroke Does the patient have a stroke diagnosis?: No VTE Prior VTE?: No VTE Risk Level:: Medical - moderate - high VTE Device Contraindication: Treatment Not Indicated VTE Drug Contraindication: N/A - Med Ordered
[2021-09-24] VITALS (8 sets, daily range): BP systolic 137–178; BP diastolic 68–93; PULSE 83–109; RESP 15–28; O2SAT 94–97
--- NOTE | 2021-09-24 | ECG_ITS ---
Test Reason : dyspnea Blood Pressure : / mmHG Vent. Rate : 100 BPM Atrial Rate : 100 BPM P-R Int : 144 ms QRS Dur : 078 ms QT Int : 350 ms P-R-T Axes : 063 046 056 degrees QTc Int : 451 ms Poor data quality Normal sinus rhythm Septal infarct , age undetermined Abnormal ECG When compared with ECG of 06-JUN-2021 14:15, No significant change was found Referred By: China Brito Electronically Signed By:TRISTAN CASTREJON MD
--- NOTE | 2021-09-24 01:47 | PC.NURSE ---
pt A&O x3. Syriac speaking. pt on home oxygen 2.5-3 LPM. Lungs producing minimal air movement. Tele: Sinus rhythm 80s-90s. Pt given IV antibiotics, methylprednisone, and multiple respiratory treatments with minimal improvement. Dr Gil informed blood cultures were not drawn, pt was already on antibiotics prior to admission. Pt has 2+ generalized pitting edema. Will continue with plan of care.
[2021-09-24] MEDS: Morphine Sulfate 2 MG/ML CARTRIDGE 1 MG IVPUSH (04:07)
--- NOTE | 2021-09-24 04:13 | PC.NURSE ---
Medicated per Mar and pain management. Will continue to monitor.
[2021-09-24] MEDS: methylPREDNISolone Sod Succ 40 MG/ML VIAL IVPUSH ×2 (04:20→13:00)
--- NOTE | 2021-09-24 04:20 | PC.NURSE ---
Pt assist to bedside commode and luciano care
[2021-09-24 05:16] LABS: Glucose, Whole Blood 237 mg/dL (60-115)
[2021-09-24] MEDS: Albuterol/Iprat 2.5/0.5MG 3 ML AMPUL.NEB INHALE ×3 (05:16→16:14)
[2021-09-24 07:12] LABS: Anion Gap 16 (12-20); Blood Urea Nitrogen 14 mg/dL (9-16); Calcium 9.4 mg/dL (8.4-10.2); Carbon Dioxide 35 mmol/L (22-29); Chloride 94 mmol/L (96-108); Creatinine Clr Calc Pharmacy 126.1; Estimated Glomerular Filt Rate > 60; Glucose Random 258 mg/dL (60-115); Sodium 140 mmol/L (135-145)
[2021-09-24 07:17] LABS: Basophils Percent Auto 0.2 % (0-2); Hematocrit 38.9 % (37.0-47.0); Hemoglobin 12.1 g/dl (12.0-16.0); Imm Gran Pct Auto 1.2 % (0.0-0.4); Lymphocytes Absolute Auto 0.4 X10*3/uL (1.2-4.9); Lymphocytes Percent Auto 2.5 % (20-40); MANUAL DIFF FLAG SCAN; Mean Corpuscular HGB Conc 31.1 g/dl (31.0-35.0); Mean Corpuscular Hemoglobin 30.4 pg (27.0-33.0); Mean Corpuscular Volume 97.7 fL (80.0-98.0); Mean Platelet Volume 10.3 fL (9.4-12.3); Monocytes Absolute Auto 0.2 X10*3/uL (0.1-1.2); Monocytes Percent Auto 1.1 % (2-11); Neutrophils Absolute Auto 15.7 x10*3/uL (2.0-8.3); Platelet Count 259 X10*3/uL (160-400); Red Blood Count 3.98 X10*6/uL (4.20-5.50); Red Cell Distribution Width 13.5 % (11.0-16.0); SCAN SMEAR FLAG 1; White Blood Count 16.5 X10*3/uL (4.8-10.8)
--- NOTE | 2021-09-24 07:46 | PHA.MEDREC ---
Pharmacy Consult ? Medication Reconciliation Pharmacy has completed the medication reconciliation. Reviewed med rec nurse completed
[2021-09-24 07:52] LABS: Glucose, Whole Blood 250 mg/dL (60-115)
[2021-09-24 08:43] LABS: SLIDE REVIEW VERIFIED
[2021-09-24] MEDS: Insulin Lispro 100 UNIT/ML 3 ML VIAL SUBCUT ×2 (09:02→12:59)
[2021-09-24] MEDS: dilTIAZem HCL CD 180 MG CAP.ER.24H 360 MG PO (09:03)
[2021-09-24] MEDS: Loratadine 10 MG TABLET PO (09:03)
[2021-09-24] MEDS: hydrALAZINE HCl 10 MG TABLET PO ×2 (09:03→15:42)
[2021-09-24] MEDS: Omeprazole 40 MG CAPSULE.DR PO (09:03)
[2021-09-24] MEDS: Gabapentin 300 MG CAPSULE PO (09:03)
[2021-09-24] MEDS: Lidocaine 4 % Patch ADH..PATCH 1 PATCH TRANSDERMA (09:04)
[2021-09-24] MEDS: 0.9 % Sodium Chloride Flush 3 ML SYRINGE IVFLUSH ×2 (09:07→15:44)
--- NOTE | 2021-09-24 09:23 | MHC.CM.PN ---
CM spoke with Patient. Patient lives in an apartment with her Daughter/Mayra and she has a RN QD (unsure from which agency) and a [employer] 5 hours/day and her goal is to return home with said services. CM has initiated and will follow for dc planning. Patient's HCP is on file; she has received NO covid vax and her PCP is DR. Kelli Benavides
--- NOTE | 2021-09-24 09:37 | MHC.CM.PN ---
ADDENDUM: Patient receives her Methadone delivery from [facility] in [facility] [phone].
[2021-09-24] MEDS: lisinopriL 40 MG TABLET PO (09:40)
--- NOTE | 2021-09-24 10:18 | PC.NURSE ---
Theophylline not loaded in ed pyxis. awaiting pharmacy to load med
[2021-09-24 11:40] LABS: Glucose, Whole Blood 251 mg/dL (60-115)
--- NOTE | 2021-09-24 12:30 | MHC.RECOVSUP ---
Addendum entered by Franklin Hayes [facility] 09/24/21 15:09: [facility] contacted this mortgage or loan underwriter to confirm patient last received 49mg of methadone on 09/23. Original Note: Recovery Support note: Patient is a 51 year old Frisian speaking female who presented to [facility] ED due to asthma exacerbation. This mortgage or loan underwriter assisted patient's RN in confirming her methadone dose. KATHIE signed and faxed to [facility]. Corinna at [facility] confirms that patient receives take home bottles of 49mg and [facility] them. This mortgage or loan underwriter met with patient with [facility] certified court/medical interpreter. Patient confirms her dose is 49mg and that she last received a bottle on 09/23 through her [facility]. Verification form completed and faxed to pharmacy. Hospitalist aware.
--- NOTE | 2021-09-24 13:13 | MHC.CM.PN ---
Per RN CM, Patient is active with [facility].
[2021-09-24] MEDS: methADONE HCl 20 MG/2 ML ORAL.CONC 50 MG PO (13:14)
--- NOTE | 2021-09-24 13:14 | HO.PM.IMPN ---
Subjective Subjective Date of Service: 09/24/21 Review of Systems Follow up COPD exacerbation still with some sob but better Physical Exam Vital Signs: Vital Signs: Last Vital Signs Temp 98.8 F 09/23/21 20:28 Pulse 109 H 09/24/21 11:26 Resp 25 H 09/24/21 11:26 BP 137/86 09/24/21 07:16 Pulse Ox 96 09/24/21 07:16 O2 Del Method 09/24/21 07:16 O2 Flow Rate 3 09/24/21 07:16 Oxygen Flow Rate 3 09/24/21 01:21 BMI result Body Mass Index 40.1 Objective Data Active Medications Acetaminophen (Acetaminophen 325 Mg Tablet) 650 mg PO Q6H PRN PRN Reason: Pain, Mild (Pain Scale 1-3) Albuterol Sulfate (Albuterol Sulfate 90 Mcg 8 Gm Inhaler) 2 puff INHALE Q4H PRN PRN Reason: Shortness Of Breath Or Wheezing Albuterol/Ipratropium (Albuterol/Iprat 2.5/0.5mg 3 Ml Ampul.Neb) 3 ml INHALE RQ4H WHILE AWAKE [facility] Last Admin: 09/24/21 11:25 Dose: 3 ml Documented By: WILLIAM Albuterol/Ipratropium (Albuterol/Iprat 2.5/0.5mg 3 Ml Ampul.Neb) 3 ml INHALE Q4H PRN PRN Reason: for wheezing Azithromycin (Azithromycin 500 Mg Tablet) 500 mg PO Q24H [facility] Dextrose (Dextrose 50 % 25 Gm/50 Ml Syringe) 25 gm IVPUSH Q15M PRN; Protocol PRN Reason: per Hypoglycemia Standing Ord. Diltiazem HCl (Diltiazem Hcl Cd 180 Mg Cap.Er.24h) 360 mg PO DAILY [facility]; Protocol Last Admin: 09/24/21 09:03 Dose: 360 mg Documented By: KALLIE Enoxaparin Sodium (Enoxaparin Sodium 40 Mg/0.4 Ml Syringe) 40 mg SUBCUT Q24H [facility] Last Admin: 09/23/21 23:28 Dose: 40 mg Documented By: MITCHELL Ergocalciferol (Ergocalciferol (Vitamin D2) 1,250 Mcg Capsule) 1,250 mcg PO Carlos@0900 [facility] Gabapentin (Gabapentin 300 Mg Capsule) 300 mg PO BID [facility] Last Admin: 09/24/21 09:03 Dose: 300 mg Documented By: KALLIE Glucose (Glucose Gel 15 Gm Gel..Gram.) 15 gm PO Q15M PRN; Protocol PRN Reason: per Hypoglycemia Standing Ord. Hydralazine HCl (Hydralazine Hcl 10 Mg Tablet) 10 mg PO TID [facility]; Protocol Last Admin: 09/24/21 09:03 Dose: 10 mg Documented By: KALLIE Ibuprofen (Ibuprofen 600 Mg Tablet) 600 mg PO Q6H PRN PRN Reason: Pain, Mild Insulin Glargine (Insulin Glargine,Hum.Rec.Anlog 100 Unit/Ml 10 Ml Vial) 30 unit SUBCUT BEDTIME ANA Insulin Glargine (Insulin Glargine,Hum.Rec.Anlog 100 Unit/Ml 10 Ml Vial) 45 unit SUBCUT BEDTIME ANA Insulin Human Lispro (Insulin Lispro 100 Unit/Ml 3 Ml Vial) 0 unit SUBCUT QIDACHS [facility]; Protocol Last Admin: 09/24/21 12:59 Dose: 6 unit Documented By: KALLIE Lidocaine (Lidocaine 4 % Patch Adh..Patch) 1 patch TRANSDERMA DAILY [facility] Last Admin: 09/24/21 09:04 Dose: 1 patch Documented By: KALLIE Lisinopril (Lisinopril 40 Mg Tablet) 40 mg PO DAILY [facility]; Protocol Last Admin: 09/24/21 09:40 Dose: 40 mg Documented By: KALLIE Loratadine (Loratadine 10 Mg Tablet) 10 mg PO DAILY [facility] Last Admin: 09/24/21 09:03 Dose: 10 mg Documented By: KALLIE Melatonin (Melatonin 3 Mg Tablet) 6 mg PO BEDTIME PRN PRN Reason: Insomnia Last Admin: 09/23/21 23:30 Dose: 6 mg Documented By: MITCHELL Metformin HCl (Metformin Hcl Er 500 Mg Tab.Er.24h) 1,000 mg PO BID [facility] Methadone HCl (Methadone Hcl 20 Mg/2 Ml Oral.Conc) 50 mg PO DAILY [facility] Last Admin: 09/24/21 13:14 Dose: 50 mg Documented By: KALLIE Methylprednisolone Sodium Succinate (Methylprednisolone Sod Succ 40 Mg/Ml Vial) 40 mg IVPUSH Q6H [facility] Last Admin: 09/24/21 13:00 Dose: 40 mg Documented By: KALLIE Montelukast Sodium (Montelukast Sodium 10 Mg Tablet) 10 mg PO BEDTIME [facility] Non-Formulary Medication (Arformoterol [Brovana]) 2 ml INHALE Q12H ANA Non-Formulary Medication (Budesonide) 0.5 mg INHALE BID ANA Non-Formulary Medication (Glecaprevir-Pibrentasvir [Mavyret]) 3 tab PO DAILY ANA Non-Formulary Medication (Roflumilast [Daliresp]) 1 tab PO DAILY ANA Non-Formulary Medication (Rosuvastatin) 1 tab PO BEDTIME ANA Non-Formulary Medication (Diclofenac Potassium) 50 mg PO BID [facility] Omeprazole (Omeprazole 40 Mg Capsule.Dr) 40 mg PO DAILY [facility] Last Admin: 09/24/21 09:03 Dose: 40 mg Documented By: KALLIE Senna (Sennosides 8.6 Mg Tablet) 17.2 mg PO BEDTIME PRN PRN Reason: Constipation Senna (Sennosides 8.6 Mg Tablet) 8.6 mg PO BEDTIME PRN PRN Reason: constipation Sodium Chloride (0.9 % Sodium Chloride Flush 3 Ml Syringe) 3 ml IVFLUSH QSHIFT [facility] Last Admin: 09/24/21 09:07 Dose: 3 ml Documented By: KALLIE Theophylline (Theophylline Anhydrous Er 400 Mg Tab.Er.24h) 800 mg PO DAILY [facility] Last Admin: 09/24/21 10:49 Dose: Not Given Documented By: KALLIE Non-Admin Reason: See Note Tiotropium [place] (Tiotropium [place] 18 Mcg Cap.W.Dev) 1 puff INHALE RDAILY [facility] Last Admin: 09/24/21 08:41 Dose: 1 puff Documented By: WILLIAM Labs CBC & Chem 7: 09/24/21 06:30 09/24/21 06:30 Labs: Laboratory Results - last 24 hr 09/23/21 09/23/21 09/23/21 20:29 20:36 21:10 MCV MCH MCHC RDW Plt Count MPV Immature Gran % (Auto) Neut % (Auto) Lymph % (Auto) [place] % (Auto) Eos % (Auto) Baso % (Auto) Lymph # (Auto) [place] # (Auto) Eos # (Auto) Baso # (Auto) Abs Immat Gran (auto) Absolute Neuts (auto) Absolute Nucleated RBC Nucleated RBC % (auto) Smear Tech's Comments PT INR O2 Saturation Cancelled 99.0 ABG pH at Pt Temp Cancelled 7.36 ABG pH (Temp Correct) Cancelled ABG pCO2 at Pt Temp Cancelled 89 H* ABG pCO2 (Temp Corrct Cancelled ABG pO2 at Pt Temp Cancelled 128 H ABG pO2 (Temp Correct Cancelled ABG HCO3 Cancelled 51 H ABG Base Excess (Actual) Cancelled 20.8 Anion Gap Estim Creat Clear Calc Estimated GFR POC Glucose Random Glucose Lactic Acid 0.9 Calcium Magnesium Total Bilirubin Direct Bilirubin AST ALT Alkaline Phosphatase Troponin I High Sens B-Natriuretic Peptide Total Protein Albumin Lipase Procalcitonin COVID-19 (PAPO) [employer] 09/23/21 09/23/21 09/23/21 21:10 21:11 21:11 MCV 99.2 H MCH 29.6 MCHC 29.9 L RDW 13.6 Plt Count 290 MPV 9.0 L Immature Gran % (Auto) 1.0 H Neut % (Auto) 91.2 H Lymph % (Auto) 4.6 L [place] % (Auto) 3.0 Eos % (Auto) 0.0 Baso % (Auto) 0.2 Lymph # (Auto) 0.9 L [place] # (Auto) 0.6 Eos # (Auto) 0.0 Baso # (Auto) 0.0 Abs Immat Gran (auto) 0.19 H Absolute Neuts (auto) 18.0 H Absolute Nucleated RBC 0.000 Nucleated RBC % (auto) 0.0 Smear Tech's Comments VERIFIED PT 9.8 L INR 0.9 O2 Saturation ABG pH at Pt Temp ABG pH (Temp Correct) ABG pCO2 at Pt Temp ABG pCO2 (Temp Corrct ABG pO2 at Pt Temp ABG pO2 (Temp Correct ABG HCO3 ABG Base Excess (Actual) Anion Gap Estim Creat Clear Calc Estimated GFR POC Glucose Random Glucose Lactic Acid Calcium Magnesium Total Bilirubin Direct Bilirubin AST ALT Alkaline Phosphatase Troponin I High Sens 7.1 B-Natriuretic Peptide Total Protein Albumin Lipase Procalcitonin COVID-19 (PPAO) COVID-19 [employer] 09/23/21 09/23/21 09/23/21 21:11 21:11 21:11 MCV MCH MCHC RDW Plt Count MPV Immature Gran % (Auto) Neut % (Auto) Lymph % (Auto) [place] % (Auto) Eos % (Auto) Baso % (Auto) Lymph # (Auto) [place] # (Auto) Eos # (Auto) Baso # (Auto) Abs Immat Gran (auto) Absolute Neuts (auto) Absolute Nucleated RBC Nucleated RBC % (auto) Smear Tech's Comments PT INR O2 Saturation ABG pH at Pt Temp ABG pH (Temp Correct) ABG pCO2 at Pt Temp ABG pCO2 (Temp Corrct ABG pO2 at Pt Temp ABG pO2 (Temp Correct ABG HCO3 ABG Base Excess (Actual) Anion Gap 14 Estim Creat Clear Calc 133.2 Estimated GFR > 60 POC Glucose Random Glucose 124 H Lactic Acid Calcium 9.7 Magnesium 2.4 Total Bilirubin 0.5 Direct Bilirubin 0.3 AST 17 ALT 36 H Alkaline Phosphatase 109 D Troponin I High Sens B-Natriuretic Peptide 28 Total Protein 6.4 L Albumin 4.0 D Lipase 6 L Procalcitonin 0.06 COVID-19 ([facility]) COVID-19 Clin Com 09/23/21 09/24/21 09/24/21 21:11 05:10 06:30 MCV 97.7 MCH 30.4 MCHC 31.1 RDW 13.5 Plt Count 259 MPV 10.3 Immature Gran % (Auto) 1.2 H Neut % (Auto) 95.0 H Lymph % (Auto) 2.5 L [place] % (Auto) 1.1 L Eos % (Auto) 0.0 Baso % (Auto) 0.2 Lymph # (Auto) 0.4 L [place] # (Auto) 0.2 Eos # (Auto) 0.0 Baso # (Auto) 0.0 Abs Immat Gran (auto) 0.20 H Absolute Neuts (auto) 15.7 H Absolute Nucleated RBC 0.000 Nucleated RBC % (auto) 0.0 Smear Tech's Comments VERIFIED PT INR O2 Saturation ABG pH at Pt Temp ABG pH (Temp Correct) ABG pCO2 at Pt Temp ABG pCO2 (Temp Corrct ABG pO2 at Pt Temp ABG pO2 (Temp Correct ABG HCO3 ABG Base Excess (Actual) Anion Gap Estim Creat Clear Calc Estimated GFR POC Glucose 237 H Random Glucose Lactic Acid Calcium Magnesium Total Bilirubin Direct Bilirubin AST ALT Alkaline Phosphatase Troponin I High Sens B-Natriuretic Peptide Total Protein Albumin Lipase Procalcitonin COVID-19 ([facility]) Negative COVID-19 Clin Com See Note 09/24/21 09/24/21 09/24/21 06:30 07:15 11:37 MCV MCH MCHC RDW Plt Count MPV Immature Gran % (Auto) Neut % (Auto) Lymph % (Auto) [place] % (Auto) Eos % (Auto) Baso % (Auto) Lymph # (Auto) [place] # (Auto) Eos # (Auto) Baso # (Auto) Abs Immat Gran (auto) Absolute Neuts (auto) Absolute Nucleated RBC Nucleated RBC % (auto) Smear Tech's Comments PT INR O2 Saturation ABG pH at Pt Temp ABG pH (Temp Correct) ABG pCO2 at Pt Temp ABG pCO2 (Temp Corrct ABG pO2 at Pt Temp ABG pO2 (Temp Correct ABG HCO3 ABG Base Excess (Actual) Anion Gap 16 Estim Creat Clear Calc 126.1 Estimated GFR > 60 POC Glucose 250 H 251 H Random Glucose 258 H Lactic Acid Calcium 9.4 Magnesium Total Bilirubin Direct Bilirubin AST ALT Alkaline Phosphatase Troponin I High Sens B-Natriuretic Peptide Total Protein Albumin Lipase Procalcitonin COVID-19 ([facility]) COVID-19 Clin Com Assessment and Plan (1) Acute exacerbation of COPD with asthma: Status: Acute Plan 51-year-old female with a past medical history of hypertension, hyperlipidemia, diabetes, asthma/COPD, chronic respiratory failure on home oxygen, CPAP at night, obesity, opiate dependence on methadone, pulmonary nodule, CHF, hypogammaglobinemia; had recurrent admissions for COPD exacerbation presented to the hospital today with a chief complaint of shortness of breath.? Noted to be in acute COPD exacerbation.? Admitted for further management.? Acute COPD exacerbation Continue nebulizations standing and p.r.n. Solu-Medrol IV q.i.d. Azithromycin Supplemental oxygen p.r.n. with goal saturation at 93% Continue home BiPAP at night Pulmonology consult Hypertension/hyperlipidemia Continue home medications hydralazine, lisinopril, statin History of opiate dependence Patient on methadone.? Addiction Medicine consult History of diabetes Will keep the patient on Lantus 30 units plus insulin sliding scale.? DVT prophylaxis:? Lovenox Code status:? Full code Attending Dr. Meehan Continued hospitalization for treatment of COPD exacerbation Quality Stroke Does the patient have a stroke diagnosis?: No VTE Prior VTE?: No VTE Risk Level:: Medical - moderate - high VTE Device Contraindication: Treatment Not Indicated VTE Drug Contraindication: N/A - Med Ordered
--- NOTE | 2021-09-24 15:38 | PM.DS ---
DS: Providers Provider Date of Service: 09/24/21 Date of admission: 09/23/21 22:15 Primary care physician: Kelli Benavides MD Consults: 09/23/21 22:15 Consult to Pulmonology Routine Consulting Provider: Allan Brito Reason for consultation: rec COPD exacerbation 09/23/21 22:20 Addiction Medicine Routine Consulting Provider: Heather Mann Reason for consultation: pt on methadone Attending physician on discharge: [facility] Discharging clinician: China Brito DS: Diagnosis Discharge Diagnosis (1) Acute exacerbation of COPD with asthma: Status: Acute DS: Summary Hospital Course Hospital Course: HP as per admitting provider 51-year-old female with a past medical history of hypertension, hyperlipidemia, diabetes, asthma/COPD, chronic respiratory failure on home oxygen, CPAP at night, obesity, opiate dependence on methadone, pulmonary nodule, CHF, hypogammaglobinemia; had recurrent admissions for COPD exacerbation presented to the hospital today with a chief complaint of shortness of breath.?Patient reported that over the past 3 days she has been having cough and shortness of breath which has been gradually worsening; tried her home inhalers with no significant improvement.? Complains of cough with the no sputum production.? Denies any fevers.?Denies any chest pain or palpitations.?Denies any GI symptoms.?Review of all other systems is negative except mentioned above ER course: Per ER team patient on presentation noted to be tight on examination concerning for COPD exacerbation.? Given nebulizations and steroids.? Not in respiratory distress.? On supplemental oxygen.? Admitted for further management . Acute COPD exacerbation Well-known to the hospitalist service Treated with IV steroids and scheduled DuoNebs Supplemental oxygen p.r.n. 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 History of diabetes Continue medications Time Spent with Patient Time attestation: Total time spent providing and/or coordinating discharge services: Discharge coordination time: Greater than 30 minutes Quality: Safe Use of Opioids Does Pt have an Active Cancer Diagnosis on the Problem List?: No Quality: Stroke Does the patient have a stroke diagnosis?: No Physical Exam Vital Signs: Vital Signs: Last Vital Signs Temp 98.8 F 09/23/21 20:28 Pulse 109 H 09/24/21 11:26 Resp 25 H 09/24/21 11:26 BP 137/86 09/24/21 07:16 Pulse Ox 96 09/24/21 07:16 O2 Del Method 09/24/21 07:16 O2 Flow Rate 3 09/24/21 07:16 Oxygen Flow Rate 3 09/24/21 01:21 BMI result Body Mass Index 40.1 Appearing in no acute distress, jennings face, chronic swelling head is normocephalic atraumatic eyes pupils are PERRLA sclera is anicteric mouth throat mucous membranes are intact and moist neck is supple no lymphadenopathy, no JVD noted lung sounds are clear to auscultation heart regular rate rhythm, clear S1, S2 positive bowel sounds, abdomen is soft, nontender neuro patient is alert x3, no focal deficits DS: Data Data Completed and Pending Completed studies during hospitalization [Text1]: Procedures Assistance with Respiratory Ventilation, 24-96 Consecutive Hours, Continuous Positive Airway Pressure (05/18/21) Assistance with Respiratory Ventilation, Less than 24 Consecutive Hours, Continuous Positive Airway Pressure (07/30/21) Labs on day of discharge: Laboratory Results - last 24 hr 09/23/21 09/23/21 09/23/21 20:29 20:36 21:10 WBC RBC Hgb Hct MCV MCH MCHC RDW Plt Count MPV Immature Gran % (Auto) Neut % (Auto) Lymph % (Auto) [place] % (Auto) Eos % (Auto) Baso % (Auto) Lymph # (Auto) [place] # (Auto) Eos # (Auto) Baso # (Auto) Abs Immat Gran (auto) Absolute Neuts (auto) Absolute Nucleated RBC Nucleated RBC % (auto) Smear Tech's Comments PT INR O2 Saturation Cancelled 99.0 ABG pH at Pt Temp Cancelled 7.36 ABG pH (Temp Correct) Cancelled ABG pCO2 at Pt Temp Cancelled 89 H* ABG pCO2 (Temp Corrct Cancelled ABG pO2 at Pt Temp Cancelled 128 H ABG pO2 (Temp Correct Cancelled ABG HCO3 Cancelled 51 H ABG Base Excess (Actual) Cancelled 20.8 Sodium Potassium Chloride Carbon Dioxide Anion Gap BUN Creatinine Estim Creat Clear Calc Estimated GFR POC Glucose Random Glucose Lactic Acid 0.9 Calcium Magnesium Total Bilirubin Direct Bilirubin AST ALT Alkaline Phosphatase Troponin I High Sens B-Natriuretic Peptide Total Protein Albumin Lipase Procalcitonin COVID-19 ([facility]APO) COVID-19 Clin Com 09/23/21 09/23/21 09/23/21 21:10 21:11 21:11 WBC 19.7 H RBC 3.98 L Hgb 11.8 L Hct 39.5 MCV 99.2 H MCH 29.6 MCHC 29.9 L RDW 13.6 Plt Count 290 MPV 9.0 L Immature Gran % (Auto) 1.0 H Neut % (Auto) 91.2 H Lymph % (Auto) 4.6 L [place] % (Auto) 3.0 Eos % (Auto) 0.0 Baso % (Auto) 0.2 Lymph # (Auto) 0.9 L [place] # (Auto) 0.6 Eos # (Auto) 0.0 Baso # (Auto) 0.0 Abs Immat Gran (auto) 0.19 H Absolute Neuts (auto) 18.0 H Absolute Nucleated RBC 0.000 Nucleated RBC % (auto) 0.0 Smear Tech's Comments VERIFIED PT 9.8 L INR 0.9 O2 Saturation ABG pH at Pt Temp ABG pH (Temp Correct) ABG pCO2 at Pt Temp ABG pCO2 (Temp Corrct ABG pO2 at Pt Temp ABG pO2 (Temp Correct ABG HCO3 ABG Base Excess (Actual) Sodium Potassium Chloride Carbon Dioxide Anion Gap BUN Creatinine Estim Creat Clear Calc Estimated GFR POC Glucose Random Glucose Lactic Acid Calcium Magnesium Total Bilirubin Direct Bilirubin AST ALT Alkaline Phosphatase Troponin I High Sens 7.1 B-Natriuretic Peptide Total Protein Albumin Lipase Procalcitonin COVID-19 ([facility]APO) COVID-19 Clin Com 09/23/21 09/23/21 09/23/21 21:11 21:11 21:11 WBC RBC Hgb Hct MCV MCH MCHC RDW Plt Count MPV Immature Gran % (Auto) Neut % (Auto) Lymph % (Auto) [place] % (Auto) Eos % (Auto) Baso % (Auto) Lymph # (Auto) [place] # (Auto) Eos # (Auto) Baso # (Auto) Abs Immat Gran (auto) Absolute Neuts (auto) Absolute Nucleated RBC Nucleated RBC % (auto) Smear Tech's Comments PT INR O2 Saturation ABG pH at Pt Temp ABG pH (Temp Correct) ABG pCO2 at Pt Temp ABG pCO2 (Temp Corrct ABG pO2 at Pt Temp ABG pO2 (Temp Correct ABG HCO3 ABG Base Excess (Actual) Sodium 143 Potassium 4.7 Chloride 96 Carbon Dioxide 38 H Anion Gap 14 BUN 13 Creatinine 0.53 Estim Creat Clear Calc 133.2 Estimated GFR > 60 POC Glucose Random Glucose 124 H Lactic Acid Calcium 9.7 Magnesium 2.4 Total Bilirubin 0.5 Direct Bilirubin 0.3 AST 17 ALT 36 H Alkaline Phosphatase 109 D Troponin I High Sens B-Natriuretic Peptide 28 Total Protein 6.4 L Albumin 4.0 D Lipase 6 L Procalcitonin 0.06 COVID-19 ([facility]) COVID-19 Clin Com 09/23/21 09/24/21 09/24/21 21:11 05:10 06:30 WBC 16.5 H RBC 3.98 L Hgb 12.1 Hct 38.9 MCV 97.7 MCH 30.4 MCHC 31.1 RDW 13.5 Plt Count 259 MPV 10.3 Immature Gran % (Auto) 1.2 H Neut % (Auto) 95.0 H Lymph % (Auto) 2.5 L [place] % (Auto) 1.1 L Eos % (Auto) 0.0 Baso % (Auto) 0.2 Lymph # (Auto) 0.4 L [place] # (Auto) 0.2 Eos # (Auto) 0.0 Baso # (Auto) 0.0 Abs Immat Gran (auto) 0.20 H Absolute Neuts (auto) 15.7 H Absolute Nucleated RBC 0.000 Nucleated RBC % (auto) 0.0 Smear Tech's Comments VERIFIED PT INR O2 Saturation ABG pH at Pt Temp ABG pH (Temp Correct) ABG pCO2 at Pt Temp ABG pCO2 (Temp Corrct ABG pO2 at Pt Temp ABG pO2 (Temp Correct ABG HCO3 ABG Base Excess (Actual) Sodium Potassium Chloride Carbon Dioxide Anion Gap BUN Creatinine Estim Creat Clear Calc Estimated GFR POC Glucose 237 H Random Glucose Lactic Acid Calcium Magnesium Total Bilirubin Direct Bilirubin AST ALT Alkaline Phosphatase Troponin I High Sens B-Natriuretic Peptide Total Protein Albumin Lipase Procalcitonin COVID-19 ([facility]APO) Negative COVID-19 Clin Com See Note 09/24/21 09/24/21 09/24/21 06:30 07:15 11:37 WBC RBC Hgb Hct MCV MCH MCHC RDW Plt Count MPV Immature Gran % (Auto) Neut % (Auto) Lymph % (Auto) [place] % (Auto) Eos % (Auto) Baso % (Auto) Lymph # (Auto) [place] # (Auto) Eos # (Auto) Baso # (Auto) Abs Immat Gran (auto) Absolute Neuts (auto) Absolute Nucleated RBC Nucleated RBC % (auto) Smear Tech's Comments PT INR O2 Saturation ABG pH at Pt Temp ABG pH (Temp Correct) ABG pCO2 at Pt Temp ABG pCO2 (Temp Corrct ABG pO2 at Pt Temp ABG pO2 (Temp Correct ABG HCO3 ABG Base Excess (Actual) Sodium 140 Potassium 5.0 Chloride 94 L Carbon Dioxide 35 H Anion Gap 16 BUN 14 Creatinine 0.56 Estim Creat Clear Calc 126.1 Estimated GFR > 60 POC Glucose 250 H 251 H Random Glucose 258 H Lactic Acid Calcium 9.4 Magnesium Total Bilirubin Direct Bilirubin AST ALT Alkaline Phosphatase Troponin I High Sens B-Natriuretic Peptide Total Protein Albumin Lipase Procalcitonin COVID-19 ([facility]AP[facility]) COVID-19 Clin Com Discharge Plan Discharge Anticipated Discharge Date/Time: 09/24/21 15:35 Patient Disposition: Home, Self-Care Discharge Diagnosis: Asthma exacerbation Referrals: Kelli Benavides MD [Primary Care Provider] - 1 Week Discharge Medications: New prednisone 10 mg tablet 40 mg PO DAILY Qty: 16 0RF Continued immun glob [id number] 0-50 10 gram recon soln 40 g IV Q4W Qty: 2 12RF ipratropium-albuterol 0.5 mg-3 mg(2.5 mg base)/3 mL solution for nebulization 3 ml inhalation Q4H PRN (Reason: for wheezing) Qty: 540 6RF Spiriva with HandiHaler 18 mcg capsule, w/inhalation device 1 cap inhalation DAILY Qty: 30 11RF gabapentin 300 mg capsule 300 mg PO BID 30 Days Qty: 60 3RF omeprazole 40 mg capsule,delayed release(DR/EC) 40 mg PO DAILY 30 Days Qty: 30 11RF diltiazem HCl [Tiadylt ER] 360 mg capsule,extended release 24 hr 1 cap PO DAILY rosuvastatin 5 mg tablet 1 tab PO BEDTIME Daliresp 500 mcg tablet 1 tab PO DAILY lidocaine 5 % adhesive patch,medicated 1 patch topical DAILY insulin lispro [Humalog U-100 Insulin] 100 unit/mL solution See Protocol subcut TIDAC Protocol: Insulin Correction Scale Less than or equal to 110 ---- Give (units): 0 111 to 150 Give (units): 0 151 to 200 Give (units): 2 201 to 250 Give (units): 4 251 to 300 Give (units): 6 301 to 350 Give (units): 8 Greater than 350 Give (units): 10 Call MD if Blood Glucose > : 350 metformin 500 mg tablet extended release 24 hr 2 tab PO BID acetaminophen [Tylenol Extra Strength] 500 mg tablet 500 mg PO Q6H PRN (Reason: pain or fever) Qty: 20 0RF methadone 10 mg/mL Concentrate 49 mg PO DAILY ergocalciferol (vitamin D2) 1,250 mcg (50,000 unit) capsule 1,250 mcg PO QWEEK insulin glargine [Lantus U-100 Insulin] 100 unit/mL solution 45 unit subcut BEDTIME Label Comments: pt states she takes 45 units at home, confirmed with pharmacy 05/10 lisinopril 40 mg tablet 1 tab PO DAILY hydralazine 10 mg Tablet 10 mg PO TID Qty: 90 0RF Protocol: Hold for SBP< HOLD for SBP < : 90 Arnoldo-24 400 mg capsule,extended release 24hr 2 cap PO DAILY Mavyret 100-40 mg tablet 3 tab PO DAILY montelukast 10 mg tablet 10 mg PO BEDTIME albuterol sulfate [ProAir HFA] 90 mcg/actuation HFA aerosol inhaler 2 puff inhalation Q4H PRN (Reason: Shortness Of Breath Or Wheezing) loratadine [Claritin] 10 mg tablet 10 mg PO DAILY sennosides [Natural Senna Laxative] 8.6 mg tablet 8.6 mg PO BEDTIME PRN (Reason: constipation) Qty: 30 3RF ibuprofen 600 mg tablet 600 mg PO Q6H PRN (Reason: Pain, Mild) diclofenac potassium 50 mg tablet 50 mg PO BID 30 Days Qty: 60 0RF Brovana 15 mcg/2 mL solution for nebulization 2 ml inhalation Q12H 30 Days Qty: 120 11RF budesonide 0.5 mg/2 mL suspension for nebulization 0.5 mg inhalation BID Qty: 120 11RF Discharge Orders: Discharge Order (Routine); Ordered 09/24/21 Ordered By: China Brito Diet: Advance to usual diet Activity on Discharge: As tolerated Stand Alone Forms: Patient Portal Discharge page Care Plan Goals: Complete resolution of symptoms Health Concerns: Asthma exacerbation Plan of Treatment: Follow-up with primary care provider as needed Take all medications as prescribed Assessment: See discharge summary
--- NOTE | 2021-09-24 15:45 | MHC.CM.PN ---
Patient has been medically cleared for dc to home today, self care.[facility] has been notified of today's dc.
--- NOTE | 2021-09-24 17:00 | PC.NURSE ---
pt medically cleared for discharge. discharge instructions reviewed with pt and daughter. iv removed. pt discharged with daughter. vss.
== END 2021-09-24 17:19 | disposition home or self-care (01) | DRG 140 ==
LOC: HO.ED 21:14 → HO.EDOVER 22:23
PROVIDERS: Admitting Provider Hospitalist; Emergency Provider Emergency Medicine; PCP Family Medicine; Visit Provider Nurse Practitioner Acute Care
DX: J44.1 Chronic obstructive pulmonary disease with (acute) exacerbation (principal); Z99.81 Dependence on supplemental oxygen; I50.9 Heart failure, unspecified; I11.0 Hypertensive heart disease with heart failure; E11.9 Type 2 diabetes mellitus without complications; E66.01 Morbid (severe) obesity due to excess calories; Z98.51 Tubal ligation status; F11.20 Opioid dependence, uncomplicated; E78.5 Hyperlipidemia, unspecified; Z68.41 Body mass index [BMI] 40.0-44.9, adult; F17.210 Nicotine dependence, cigarettes, uncomplicated; Z71.6 Tobacco abuse counseling; Z20.822 Contact with and (suspected) exposure to COVID-19; Z79.52 Long term (current) use of systemic steroids; Z79.84 Long term (current) use of oral hypoglycemic drugs; Z79.899 Other long term (current) drug therapy
CPT/HCPCS: 36415; 71045; 80048; 80076; 82803; 82947; 83605; 83690; 83735; 83880; 84145; 84484; 85025; 85610; 87040; 87635; 93005; 94640; 94644; 94660; 96365; 96366; 96367; 96375; 99219; 99285; J0456; J0696; J1650; J2270; J2920; J3475

== ENCOUNTER → 2021-10-04 11:16 | Outpatient (BNVA) | payer MEDICAID, SELFPAY | PROVIDERS: PCP Family Medicine; Visit Provider Hospitalist | DX: J44.9 Chronic obstructive pulmonary disease, unspecified (principal); R07.81 Pleurodynia; R91.1 Solitary pulmonary nodule; J96.11 Chronic respiratory failure with hypoxia; J96.12 Chronic respiratory failure with hypercapnia; D80.1 Nonfamilial hypogammaglobulinemia; F17.210 Nicotine dependence, cigarettes, uncomplicated; S22.49XD Multiple fractures of ribs, unspecified side, subsequent encounter for fracture with routine healing | CPT/HCPCS: 99212 ==

== ENCOUNTER 2021-10-29 11:02 | Outpatient (REF) | payer MEDICAID, SELFPAY | END 2021-10-29 11:03 | disposition home or self-care (01) | LOC: HO.MDS 11:02 | PROVIDERS: Visit Provider Hospitalist | DX: D80.1 Nonfamilial hypogammaglobulinemia (principal); Z99.81 Dependence on supplemental oxygen | CPT/HCPCS: 96365; 96366; J1569 ==

== ENCOUNTER 2021-11-01 15:30 | Emergency (ER) | payer MEDICAID, SELFPAY ==
--- NOTE | ~2021-11-01 | XR_ITS ---
EXAMINATION: XR CHEST CLINICAL INFORMATION: COPD exacerbation COMPARISON: Multiple prior studies. Most recent Chest x-ray 09/23/2021. CT chest 08/04/2021 TECHNIQUE: Frontal portable view of the chest was obtained. 4:12 PM FINDINGS: There are faint patchy reticular nodular opacities bilateral which have mildly improved slightly since prior study of 10/03/2021. No focal consolidation. No pleural effusion. Cardiac mediastinal contours are normal. No pulmonary vascular congestion. Multiple bilateral healed rib fractures. XR/XR chest 1V IMPRESSION: There is mild improvement in the patchy reticular nodular airspace opacities is prior chest x-ray 09/23/2021.
[2021-11-01 15:37] VITALS: BP 133/71; BP 142/78; PULSE 100; PULSE 103; RESP 22; TEMP 36.6; O2SAT 93; O2SAT 98; BMI 39.4
--- NOTE | 2021-11-01 16:15 | ECG_ITS ---
Test Reason : WEAKNESS Blood Pressure : / mmHG Vent. Rate : 089 BPM Atrial Rate : 089 BPM P-R Int : 140 ms QRS Dur : 088 ms QT Int : 370 ms P-R-T Axes : 063 024 041 degrees QTc Int : 450 ms Normal sinus rhythm Normal ECG When compared with ECG of 24-SEP-2021 09:05, No significant change was found Referred By: Jessica Quinones Electronically Signed By:CANDI VARGAS
--- NOTE | 2021-11-01 16:16 | ED_ITS ---
HPI - General Adult General Chief complaint: Headache Stated complaint: HEADACHE/NAUSEA/VOMITING Time Seen by Provider: 11/01/21 15:51 Source: patient and EMS Mode of arrival: EMS Limitations: no limitations History of Present Illness HPI narrative: Patient comes to the emergency room complaining of 2-3 days of generalized malaise, weakness, nausea, no vomiting or diarrhea. Patient also complaining of headache. Patient states that approximately 5 weeks ago she started new medication (Mavyret: glecaprevir/pibrentasivir) for hepatitis-C. Patient states that she has been tolerating well her medication. Patient states that she is not sure if she is having no side effects. Patient is well known to have recu rrent COPD exacerbations. Patient states that her breathing is at baseline. Patient used her inhaler as she usually does this afternoon approximately 1 hour prior to arrival. Patient states that she is chronically short of breath but she does not feel any different than her baseline. Patient denies fever chills, complaining of nausea, no vomiting no diarrhea, no abdominal pain. Related Data Home Medications Medication Instructions Recorded Confirmed albuterol sulfate 90 mcg/actuation 2 puff inhalation Q4H PRN 12/30/19 09/24/21 aerosol inhaler (ProAir HFA) Shortness Of Breath Or Wheezing loratadine 10 mg tablet (Claritin) 10 mg PO DAILY 12/30/19 09/24/21 montelukast 10 mg tablet 10 mg PO BEDTIME 12/30/19 09/24/21 diltiazem HCl 360 mg capsule,24 1 cap PO DAILY 11/16/20 09/24/21 hr,extended release (Tiadylt ER) roflumilast 500 mcg tablet 1 tab PO DAILY 11/16/20 09/24/21 (Daliresp) rosuvastatin 5 mg tablet 1 tab PO BEDTIME 11/16/20 09/24/21 insulin lispro 100 unit/mL See Protocol subcut TIDAC 12/14/20 09/24/21 subcutaneous solution (Humalog U-100 Insulin) lidocaine 5 % topical patch 1 patch topical DAILY 12/14/20 09/24/21 metformin 500 mg tablet,extended 2 tab PO BID 05/18/21 09/24/21 release 24 hr ergocalciferol (vitamin D2) 1,250 1,250 mcg PO QWEEK 06/06/21 09/24/21 mcg (50,000 unit) capsule methadone 10 mg/mL oral concentrate 49 mg PO DAILY 06/06/21 09/24/21 insulin glargine 100 unit/mL 45 unit subcut BEDTIME 06/07/21 09/24/21 subcutaneous solution (Lantus U-100 Insulin) lisinopril 40 mg tablet 1 tab PO DAILY 07/30/21 09/24/21 ibuprofen 600 mg tablet 600 mg PO Q6H PRN Pain, Mild 09/04/21 09/24/21 glecaprevir 100 mg-pibrentasvir 40 3 tab PO DAILY 09/24/21 09/24/21 mg tablet (Mavyret) theophylline 400 mg 2 cap PO DAILY 09/24/21 09/24/21 capsule,extended release 24 hr (Arnoldo-24) Previous Rx's Medication Instructions Recorded immune glob,gamma(IgG) 10 40 g IV Q4W #2 ea 06/16/20 jjje-olr-wksh-IgA 0 to 50 mcg/mL IV solution sennosides 8.6 mg tablet (Natural 8.6 mg PO BEDTIME PRN constipation 11/24/20 Senna Laxative) #30 tabs tiotropium bromide 18 mcg capsule 1 cap inhalation DAILY #30 ea 06/25/21 with inhalation device (Spiriva with HandiHaler) acetaminophen 500 mg tablet 500 mg PO Q6H PRN pain or fever 06/27/21 (Tylenol Extra Strength) #20 tabs arformoterol 15 mcg/2 mL solution 2 ml inhalation Q12H 30 days #120 07/24/21 for nebulization (Brovana) mL budesonide 0.5 mg/2 mL suspension 0.5 mg (2 mL) inhalation BID #120 07/24/21 for nebulization mL hydralazine 10 mg tablet 10 mg PO TID #90 tabs 08/14/21 gabapentin 300 mg capsule 300 mg PO BID 30 days #60 caps 09/19/21 omeprazole 40 mg capsule,delayed 40 mg PO DAILY 30 days #30 caps 09/20/21 release ipratropium 0.5 mg-albuterol 3 mg 3 ml PO Q4H PRN for wheezing #540 10/03/21 (2.5 mg base)/3 mL nebulization mL soln diclofenac potassium 50 mg tablet 50 mg PO BID 30 days #60 tabs 10/08/21 prednisone 10 mg tablet See Rx Instructions PO .COMPLEX 10/15/21 #90 tabs ondansetron 4 mg disintegrating 4 mg PO Q6H PRN nausea and 11/01/21 tablet vomiting #10 tabs Allergies Allergy/AdvReac Type Severity Reaction Status Date / Time No Known Allergies Allergy Verified 10/04/21 11:30 [No Known Allergies*] Review of Systems Review of Systems: Constitutional : No Weight loss, No Fever, No Chills, No Night Sweats, complaining of fatigue, generalized malaise ENT/Mouth : No Hearing loss, No Ear Pain, No Nasal Congestion, No Sinus Pain, No Hoarseness, No sore throat, No Rhinorrhea, No Swallowing Difficulty Eyes: No Eye Pain, No Swelling, No Redness, No Foreign Body, No Discharge, No Vision Changes Cardiovascular : No Chest Pain, no orthopnea, no edema no palpitations Respiratory : Chronic cough at baseline, no sputum, chronic wheezing chronic shortness of breath at baseline Gastrointestinal : Complaining of Nausea, No Vomiting, No Diarrhea, No Constipation, No abdominal Pain, No Hematochezia, No Melena Genitourinary : no irregular bleeding, No Dysuria, No Urinary Frequency, No Hematuria, No Urinary Incontinence, No Urgency, No Flank Pain, No Urinary Flow Changes, No Hesitancy Musculoskeletal : No joint pain, No Myalgias, No Joint Swelling Skin : No Skin Lesions, No rash Neuro : No Weakness, No Numbness, No Paresthesias, No Loss of Consciousness, No Dizziness, No Headache Psych : No Anxiety/Panic, No Depression, No SI/HI/AH/VH, No Social Issues, Heme/Lymph: No Bruising, No Bleeding,No Lymphadenopathy Endocrine : No Polyuria, No Polydipsia, No Temperature Intolerance [facility] Past Medical History Medical History Abdominal pain Abnormal chest x-ray Asthma-COPD overlap syndrome Chronic respiratory failure Chronic respiratory failure Congestive heart failure COPD (chronic obstructive pulmonary disease) Diabetes mellitus Essential hypertension Hyperlipidemia, unspecified Hypertensive cardiovascular disease Hypogammaglobulinemia Limb swelling Morbid obesity Opioid dependence Poor dentition Pulmonary nodule Rib fractures Status asthmaticus with COPD (chronic obstructive pulmonary disease) Tobacco abuse Type 2 diabetes mellitus Type 2 diabetes mellitus with unspecified complications Surgical History H/O tubal ligation Family History Family History Father Diabetes Other Asthma Social History Social History Household Members: Children Household Members Other:: 3 Housing: Apartment Do you presently have visiting nurse or other home services: No Unable to assess alcohol history related to: Unknown Alcohol intake: never Patient Tobacco Use Status: Current everyday Tobacco user Tobacco use type: Cigarette Cigarettes Per Day: 1 Years Smoked: 35 e-Cigarette/Vaping Use: Currently Using Second Hand Smoke Exposure: No Substance Use Type: Opiates Advance Directives: Yes Advance Directives on File: Yes Advance Directives Date on File: 06/12/21 service: No Current occupational status: disabled Physical Exam ED Vital Signs: Vital Signs - 24 hr 11/01/21 15:37 Temperature 97.8 F Pulse Rate 103 H Respiratory Rate 22 H Blood Pressure 133/71 Pulse Oximetry 93 Oxygen Delivery Method Nasal Cannula BMI result Body Mass Index 39.4 Const Other: Appearance: Alert. Oriented X3. No acute distress. Talking on her phone Eyes: Pupils equal, round and reactive to light. ENT: Pharynx normal. Neck: Normal inspection. Neck supple. No lymph nodes noted. No crepitus CVS: Normal heart rate and rhythm. Pulses normal. Normal S1 and S2 Respiratory: No respiratory distress. Using baseline 2 L of oxygen, chronic wheezing, moderate air movement Abdomen: Soft , distended, nontender Skin: Skin warm and dry. Normal skin color. Normal skin turgor. Extremities: No lower extremity edema. No Lacerations. No Rash Neuro: Oriented X 3. No motor deficit. No sensory deficit. Moving all extremities. No slurred speech. CN 2 through 12 grossly intact Psych: calm, cooperative, normal affect Course Course Course Narrative: Of patient's labs and imaging are pending. I reviewed the labs and imaging with the patient, patient has a chronic elevated white blood cell count, patient takes daily steroids. Lactic negative, chest x- ray actually shows improvement for the patient. COVID test negative. Patient is at baseline, patient given p.o. Zofran. Medical Decision Making Lab Data Result diagrams: 11/01/21 17:03 11/01/21 17:02 Labs: Lab Results 11/01/21 11/01/21 11/01/21 Range/Units 17:01 17:02 17:02 WBC (4.8-10.8) X10*3/uL RBC (4.20-5.50) X10*6/uL Hgb (12.0-16.0) g/dl Hct (37.0-47.0) % MCV (80.0-98.0) fL MCH (27.0-33.0) pg MCHC (31.0-35.0) g/dl RDW (11.0-16.0) % Plt Count (160-400) X10*3/uL MPV (9.4-12.3) fL Immature Gran % (Auto) (0.0-0.4) % Neut % (Auto) (45-73) % Lymph % (Auto) (20-40) % Waldo % (Auto) (2-11) % Eos % (Auto) (0-4) % Baso % (Auto) (0-2) % Lymph # (Auto) (1.2-4.9) X10*3/uL Waldo # (Auto) (0.1-1.2) X10*3/uL Eos # (Auto) (0.0-0.4) X10*3/uL Baso # (Auto) (0.0-0.2) X10*3/uL Abs Immat Gran (auto) (0.00-0.03) X10*3/uL Absolute Neuts (auto) (2.0-8.3) x10*3/uL Absolute Nucleated RBC (0.0-0.012) X10*3/uL Nucleated RBC % (auto) (0.0-0.2) /100WBC Smear Tech's Comments PT (10.0-13.1) SEC INR (0.9-1.1) VBG pH (7.32-7.43) VBG pCO2 mmHg VBG pO2 mmHg VBG HCO3 (22-26) mmol/L VBG O2 Saturation % VBG Base Excess mmol/L Sodium 141 (135-145) mmol/L Potassium 4.5 (3.3-5.1) mmol/L Chloride 91 L (96-108) mmol/L Carbon Dioxide 41 H* (22-29) mmol/L Anion Gap 14 (12-20) BUN 14 (9-16) mg/dL Creatinine 0.63 (0.5-1.4) mg/dL Estim Creat Clear Calc 106.5 Estimated GFR > 60 Random Glucose 187 H (60-115) mg/dL Lactic Acid (0.5-2.0) mmol/L Calcium 9.3 (8.4-10.2) mg/dL Magnesium 1.7 (1.6-2.6) mg/dL Total Bilirubin 0.4 (0.0-1.0) mg/dL Direct Bilirubin 0.3 (0.0-0.5) mg/dL AST 13 (5-31) U/L ALT 17 (0-31) U/L Alkaline Phosphatase 102 (39-117) U/L Troponin I High Sens 10.0 (<3.5-17.0) ng/L B-Natriuretic Peptide (<100) pg/mL Total Protein 7.1 (6.5-8.0) g/dL Albumin 3.8 (3.5-5.0) g/dL Lipase 8 (8-78) U/L COVID-19 (PAPO) Negative (Negative) COVID-19 Clin Com See Note 11/01/21 11/01/21 11/01/21 Range/Units 17:02 17:02 17:02 WBC (4.8-10.8) X10*3/uL RBC (4.20-5.50) X10*6/uL Hgb (12.0-16.0) g/dl Hct (37.0-47.0) % MCV (80.0-98.0) fL MCH (27.0-33.0) pg MCHC (31.0-35.0) g/dl RDW (11.0-16.0) % Plt Count (160-400) X10*3/uL MPV (9.4-12.3) fL Immature Gran % (Auto) (0.0-0.4) % Neut % (Auto) (45-73) % Lymph % (Auto) (20-40) % Waldo % (Auto) (2-11) % Eos % (Auto) (0-4) % Baso % (Auto) (0-2) % Lymph # (Auto) (1.2-4.9) X10*3/uL Waldo # (Auto) (0.1-1.2) X10*3/uL Eos # (Auto) (0.0-0.4) X10*3/uL Baso # (Auto) (0.0-0.2) X10*3/uL Abs Immat Gran (auto) (0.00-0.03) X10*3/uL Absolute Neuts (auto) (2.0-8.3) x10*3/uL Absolute Nucleated RBC (0.0-0.012) X10*3/uL Nucleated RBC % (auto) (0.0-0.2) /100WBC Smear Tech's Comments PT 10.6 (10.0-13.1) SEC INR 0.9 (0.9-1.1) VBG pH (7.32-7.43) VBG pCO2 mmHg VBG pO2 mmHg VBG HCO3 (22-26) mmol/L VBG O2 Saturation % VBG Base Excess mmol/L Sodium (135-145) mmol/L Potassium (3.3-5.1) mmol/L Chloride (96-108) mmol/L Carbon Dioxide (22-29) mmol/L Anion Gap (12-20) BUN (9-16) mg/dL Creatinine (0.5-1.4) mg/dL Estim Creat Clear Calc Estimated GFR Random Glucose (60-115) mg/dL Lactic Acid 0.7 (0.5-2.0) mmol/L Calcium (8.4-10.2) mg/dL Magnesium (1.6-2.6) mg/dL Total Bilirubin (0.0-1.0) mg/dL Direct Bilirubin (0.0-0.5) mg/dL AST (5-31) U/L ALT (0-31) U/L Alkaline Phosphatase (39-117) U/L Troponin I High Sens (<3.5-17.0) ng/L B-Natriuretic Peptide < 10 (<100) pg/mL Total Protein (6.5-8.0) g/dL Albumin (3.5-5.0) g/dL Lipase (8-78) U/L COVID-19 (PAPO) (Negative) COVID-19 Clin Com 11/01/21 11/01/21 Range/Units 17:03 17:07 WBC 18.3 H (4.8-10.8) X10*3/uL RBC 4.30 (4.20-5.50) X10*6/uL Hgb 12.7 (12.0-16.0) g/dl Hct 42.8 (37.0-47.0) % MCV 99.5 H (80.0-98.0) fL MCH 29.5 (27.0-33.0) pg MCHC 29.7 L (31.0-35.0) g/dl RDW 13.2 (11.0-16.0) % Plt Count 244 (160-400) X10*3/uL MPV 9.6 (9.4-12.3) fL Immature Gran % (Auto) 0.5 H (0.0-0.4) % Neut % (Auto) 93.8 H (45-73) % Lymph % (Auto) 2.4 L (20-40) % Waldo % (Auto) 2.8 (2-11) % Eos % (Auto) 0.2 (0-4) % Baso % (Auto) 0.3 (0-2) % Lymph # (Auto) 0.4 L (1.2-4.9) X10*3/uL Waldo # (Auto) 0.5 (0.1-1.2) X10*3/uL Eos # (Auto) 0.0 (0.0-0.4) X10*3/uL Baso # (Auto) 0.1 (0.0-0.2) X10*3/uL Abs Immat Gran (auto) 0.09 H (0.00-0.03) X10*3/uL Absolute Neuts (auto) 17.1 H (2.0-8.3) x10*3/uL Absolute Nucleated RBC 0.000 (0.0-0.012) X10*3/uL Nucleated RBC % (auto) 0.0 (0.0-0.2) /100WBC Smear Tech's Comments VERIFIED PT (10.0-13.1) SEC INR (0.9-1.1) VBG pH 7.45 H (7.32-7.43) VBG pCO2 60 mmHg VBG pO2 149 mmHg VBG HCO3 43 H (22-26) mmol/L VBG O2 Saturation 99.0 % VBG Base Excess 15.9 mmol/L Sodium (135-145) mmol/L Potassium (3.3-5.1) mmol/L Chloride (96-108) mmol/L Carbon Dioxide (22-29) mmol/L Anion Gap (12-20) BUN (9-16) mg/dL Creatinine (0.5-1.4) mg/dL Estim Creat Clear Calc Estimated GFR Random Glucose (60-115) mg/dL Lactic Acid (0.5-2.0) mmol/L Calcium (8.4-10.2) mg/dL Magnesium (1.6-2.6) mg/dL Total Bilirubin (0.0-1.0) mg/dL Direct Bilirubin (0.0-0.5) mg/dL AST (5-31) U/L ALT (0-31) U/L Alkaline Phosphatase (39-117) U/L Troponin I High Sens (<3.5-17.0) ng/L B-Natriuretic Peptide (<100) pg/mL Total Protein (6.5-8.0) g/dL Albumin (3.5-5.0) g/dL Lipase (8-78) U/L COVID-19 (PAPO) (Negative) COVID-19 Clin Com Imaging Data Chest x-ray: Radiologist's impression: There are faint patchy reticular nodular opacities bilateral which have mildly improved slightly since prior study of 10/03/2021. No focal consolidation. No pleural effusion. Cardiac mediastinal contours are normal. No pulmonary vascular congestion.? Multiple bilateral healed rib fractures. XR/XR chest 1V IMPRESSION: There is mild improvement in the patchy reticular nodular airspace opacities is prior chest x-ray 09/23/2021. ? Discharge Plan Discharge Clinical Impression: Nausea Patient Disposition: Home, Self-Care Instructions: Acute Nausea and Vomiting (ED) Additional Instructions: Please follow-up with your primary care physician tomorrow. If you have any worsening or new symptoms, please return to the emergency room or call 911 Prescriptions: New ondansetron 4 mg tablet,disintegrating 4 mg PO Q6H PRN (Reason: nausea and vomiting) Qty: 10 0RF No Action immun glob [id number]-xpu-[id number]-IgA 0-50 10 gram recon soln 40 g IV Q4W Qty: 2 12RF Spiriva with HandiHaler 18 mcg capsule, w/inhalation device 1 cap inhalation DAILY Qty: 30 11RF gabapentin 300 mg capsule 300 mg PO BID 30 Days Qty: 60 3RF omeprazole 40 mg capsule,delayed release(DR/EC) 40 mg PO DAILY 30 Days Qty: 30 11RF ipratropium-albuterol 0.5 mg-3 mg(2.5 mg base)/3 mL solution for nebulization 3 ml PO Q4H PRN (Reason: for wheezing) Qty: 540 6RF diclofenac potassium 50 mg tablet 50 mg PO BID 30 Days Qty: 60 0RF prednisone 10 mg tablet See Rx Instructions PO .COMPLEX Qty: 90 3RF Rx Instructions: Take 2 tablets by mouth every morning, take 1 tablet every evening. diltiazem HCl [Tiadylt ER] 360 mg capsule,extended release 24 hr 1 cap PO DAILY rosuvastatin 5 mg tablet 1 tab PO BEDTIME Daliresp 500 mcg tablet 1 tab PO DAILY lidocaine 5 % adhesive patch,medicated 1 patch topical DAILY insulin lispro [Humalog U-100 Insulin] 100 unit/mL solution See Protocol subcut TIDAC Protocol: Insulin Correction Scale Less than or equal to 110 ---- Give (units): 0 111 to 150 Give (units): 0 151 to 200 Give (units): 2 201 to 250 Give (units): 4 251 to 300 Give (units): 6 301 to 350 Give (units): 8 Greater than 350 Give (units): 10 Call MD if Blood Glucose > : 350 metformin 500 mg tablet extended release 24 hr 2 tab PO BID acetaminophen [Tylenol Extra Strength] 500 mg tablet 500 mg PO Q6H PRN (Reason: pain or fever) Qty: 20 0RF methadone 10 mg/mL Concentrate 49 mg PO DAILY ergocalciferol (vitamin D2) 1,250 mcg (50,000 unit) capsule 1,250 mcg PO QWEEK insulin glargine [Lantus U-100 Insulin] 100 unit/mL solution 45 unit subcut BEDTIME Label Comments: pt states she takes 45 units at home, confirmed with pharmacy 05/10 lisinopril 40 mg tablet 1 tab PO DAILY hydralazine 10 mg Tablet 10 mg PO TID Qty: 90 0RF Protocol: Hold for SBP< HOLD for SBP < : 90 Arnoldo-24 400 mg capsule,extended release 24hr 2 cap PO DAILY Mavyret 100-40 mg tablet 3 tab PO DAILY montelukast 10 mg tablet 10 mg PO BEDTIME albuterol sulfate [ProAir HFA] 90 mcg/actuation HFA aerosol inhaler 2 puff inhalation Q4H PRN (Reason: Shortness Of Breath Or Wheezing) loratadine [Claritin] 10 mg tablet 10 mg PO DAILY sennosides [Natural Senna Laxative] 8.6 mg tablet 8.6 mg PO BEDTIME PRN (Reason: constipation) Qty: 30 3RF ibuprofen 600 mg tablet 600 mg PO Q6H PRN (Reason: Pain, Mild) Brovana 15 mcg/2 mL solution for nebulization 2 ml inhalation Q12H 30 Days Qty: 120 11RF budesonide 0.5 mg/2 mL suspension for nebulization 0.5 mg inhalation BID Qty: 120 11RF
[2021-11-01 17:14] LABS: Basophils Absolute Auto 0.1 X10*3/uL (0.0-0.2); Basophils Percent Auto 0.3 % (0-2); Eosinophils Percent Auto 0.2 % (0-4); Hematocrit 42.8 % (37.0-47.0); Hemoglobin 12.7 g/dl (12.0-16.0); Imm Gran Abs Auto 0.09 X10*3/uL (0.00-0.03); Imm Gran Pct Auto 0.5 % (0.0-0.4); Lymphocytes Absolute Auto 0.4 X10*3/uL (1.2-4.9); Lymphocytes Percent Auto 2.4 % (20-40); MANUAL DIFF FLAG SCAN; Mean Corpuscular HGB Conc 29.7 g/dl (31.0-35.0); Mean Corpuscular Hemoglobin 29.5 pg (27.0-33.0); Mean Corpuscular Volume 99.5 fL (80.0-98.0); Mean Platelet Volume 9.6 fL (9.4-12.3); Monocytes Absolute Auto 0.5 X10*3/uL (0.1-1.2); Monocytes Percent Auto 2.8 % (2-11); Neutrophils Absolute Auto 17.1 x10*3/uL (2.0-8.3); Neutrophils Percent Auto 93.8 % (45-73); Platelet Count 244 X10*3/uL (160-400); Red Cell Distribution Width 13.2 % (11.0-16.0); SCAN SMEAR FLAG 1; White Blood Count 18.3 X10*3/uL (4.8-10.8)
[2021-11-01 17:18] LABS: VBG Base Excess 15.9 mmol/L; VBG HCO3 43 mmol/L (22-26); VBG pCO2 60 mmHg; VBG pH 7.45 (7.32-7.43); VBG pO2 149 mmHg
[2021-11-01 17:19] LABS: Venous Blood Gas Refer to POC result
[2021-11-01 17:21] LABS: INTERNATIONAL NORM RATIO 0.9 (0.9-1.1); Prothrombin Time 10.6 SEC (10.0-13.1)
[2021-11-01 17:30] LABS: Lactic Acid 0.7 mmol/L (0.5-2.0)
[2021-11-01 17:31] LABS: COVID-19 Test Negative (Negative); IDNOW Serial# 16C4AD1C
[2021-11-01 17:37] LABS: B Type Natriuretic Peptide < 10 pg/mL (<100)
[2021-11-01 17:41] LABS: SLIDE REVIEW VERIFIED
[2021-11-01 17:42] LABS: Alanine Aminotransferase 17 U/L (0-31); Albumin Level 3.8 g/dL (3.5-5.0); Alkaline Phosphatase 102 U/L (39-117); Anion Gap 14 (12-20); Aspartate Amino Transferase 13 U/L (5-31); Bilirubin Direct 0.3 mg/dL (0.0-0.5); Bilirubin Total 0.4 mg/dL (0.0-1.0); Blood Urea Nitrogen 14 mg/dL (9-16); Calcium 9.3 mg/dL (8.4-10.2); Carbon Dioxide 41 mmol/L (22-29); Chloride 91 mmol/L (96-108); Creatinine Clr Calc Pharmacy 106.5; Estimated Glomerular Filt Rate > 60; Glucose Random 187 mg/dL (60-115); Lipase 8 U/L (8-78); Magnesium 1.7 mg/dL (1.6-2.6); Potassium 4.5 mmol/L (3.3-5.1); Sodium 141 mmol/L (135-145); Total Protein 7.1 g/dL (6.5-8.0)
[2021-11-01 18:26] VITALS: BP 140/87; PULSE 90; RESP 20; TEMP 36.7; O2SAT 98
--- NOTE | 2021-11-01 18:26 | PC.NURSE ---
x2 RNs to try Iv access, unable to obtain. Per Dr. Quinones ok to hold IVP zofran and not obtain second set of cultures.
== END 2021-11-01 18:40 | disposition home or self-care (01) ==
PROVIDERS: Emergency Provider Emergency Medicine
DX: R11.0 Nausea (principal); Z20.822 Contact with and (suspected) exposure to COVID-19; R06.02 Shortness of breath; E11.9 Type 2 diabetes mellitus without complications; I11.0 Hypertensive heart disease with heart failure; I50.9 Heart failure, unspecified; E66.9 Obesity, unspecified; Z68.39 Body mass index [BMI] 39.0-39.9, adult; Z79.4 Long term (current) use of insulin; F11.20 Opioid dependence, uncomplicated; Z79.899 Other long term (current) drug therapy
CPT/HCPCS: 36415; 71045; 80048; 80076; 82803; 83605; 83690; 83735; 83880; 84484; 85025; 85610; 87040; 87635; 93005; 99283

== ENCOUNTER 2021-11-02 13:59 | Inpatient (IN) | payer MEDICAID, SELFPAY ==
[2021-11-02] VITALS (14 sets, daily range): BP systolic 99–164; BP diastolic 61–101; PULSE 81–138; RESP 20–26; TEMP 35–38.1; O2SAT 60–100; BMI 37.9
--- NOTE | ~2021-11-02 | XR_ITS ---
EXAMINATION: XR CHEST CLINICAL INFORMATION: Post intubation COMPARISON: Film same day earlier TECHNIQUE: Frontal view of the chest was obtained. FINDINGS: ET tube appears to be 1.2 cm above the kellen. NG tube is overlying the stomach. The distal tip is not identified and out of the field. This may be overlying the antrum or duodenum. Mild right upper lobe opacities may represent developing infiltrate. There is cephalization of the vasculature but no overt failure. XR/XR chest 1V IMPRESSION: ET tube 1.2 cm above the kellen. NG tube as described above. Possible developing right upper lobe opacities. Attention to follow-up. Vascular congestion here but no overt failure
--- NOTE | ~2021-11-02 | CT_ITS ---
EXAMINATION: CT CHEST, ABDOMEN, AND PELVIS WITHOUT CONTRAST CLINICAL INFORMATION: Hypoxia. Bowel obstruction. COMPARISON: CT chest from 08/04/2021. Abdominal ultrasound from 07/10/2020.. TECHNIQUE: Multidetector volumetric imaging was performed from the thoracic inlet to the pubic symphysis without contrast. Sagittal and coronal reformatted images were obtained on the technologist workstation. DLP: 1573 mGy-cm FINDINGS: CHEST: Lungs: The patient is intubated with orogastric tube in place. Mild to moderate centrilobular emphysema. Mild bilateral dependent atelectasis. Moderate peribronchial wall thickening, most notably within the central and deep dependent lungs. There is filling of multiple segmental/subsegmental bronchi within the lower lobes. The central airways are patent. No additional diffuse or focal lung parenchymal abnormalities. No pleural effusion or pneumothorax. Mediastinum: Mild coronary artery calcifications. Otherwise, the cardiac structures are normal in appearance. No mediastinal free fluid or gas. No pericardial effusion. No hilar, mediastinal, or axillary lymphadenopathy. ABDOMEN/PELVIS: Liver, Biliary Ducts, and Gallbladder: The liver is normal in size and attenuation without focal hepatic lesions or biliary ductal dilatation. The gallbladder is physiologically distended without radiopaque gallstones, pericholecystic fluid, or significant gallbladder wall thickening. Pancreas: The pancreas is normal in appearance. Adrenal Glands: The adrenal glands are normal in appearance. Spleen: The spleen is normal in appearance. Kidneys and Ureters: The kidneys demonstrate symmetric nephrograms without evidence of nephrolithiasis or hydronephrosis. No ureterolithiasis or hydroureter. Urinary Bladder: The urinary bladder is decompressed with Adan catheter in place. Gastrointestinal System: The stomach is decompressed and therefore not well evaluated on this exam. The small bowel is of normal caliber without regions of abnormal wall enhancement. The colon is normal in appearance without focal wall thickening or pericolonic inflammatory change. Normal appendix. Genitourinary: No demonstrated adnexal masses. Intra-abdominal and Retroperitoneal Spaces: No intra-abdominal free fluid collections or gas. No mesenteric, retroperitoneal, or inguinal lymphadenopathy. VASCULATURE: Aorta is of normal contour and caliber with mild to moderate calcific atherosclerotic disease. MUSCULOSKELETAL: No acute fractures of the sternum, clavicles, scapulae, shoulders, ribs, thoracolumbar spine, pelvis, or hips. Multiple chronic/healed rib fractures throughout the anterior and lateral ribs bilaterally with hypertrophic callus formation and bridging osseous syndesmoses. Moderate multilevel degenerative changes of the spine. Chronic compression deformities of the T5, T6, T7, L1, L2, and L4 vertebral bodies. Advanced degenerative disc disease at L5-S1. Prominent disc bulges/protrusions from L3-S1 appear to cause moderate to severe spinal canal stenoses at these levels. No suspicious lytic or sclerotic osseous lesions demonstrated. No soft tissue masses demonstrated. CT/CT abdomen pelvis wo con IMPRESSION: 1. Patient is intubated. Mild to moderate underlying emphysema. Moderate central and dependent peribronchial wall thickening with mucous plugging of multiple segmental/subsegmental segmental lower lobe bronchi. Findings may be seen with nonspecific small airways disease or aspiration event. No overt focal airspace consolidation. 2. No evidence of bowel obstruction. 3. No acute abnormalities of the abdomen/pelvis. 4. Moderate multilevel degenerative spondyloarthropathy of the lumbar spine. On this limited exam without intrathecal contrast, there appear to be moderate to severe spinal canal stenoses from L3-S1.
--- NOTE | ~2021-11-02 | XR_ITS ---
EXAMINATION: XR CHEST CLINICAL INFORMATION: Shortness of breath COMPARISON: Chest x-ray 11/01/2021, chest x-ray 09/23/2021. CT chest 08/03/2021 TECHNIQUE: Frontal portable view of the chest was obtained. 2:14 PM FINDINGS: Continued faint patchy reticular nodular opacities bilateral Process Steward improved since prior study of September 20192021. No acute focal consolidation. No pleural effusion. The cardiac and mediastinal contours are normal. No pulmonary vascular. Old bilateral multiple healed rib fractures. . XR/XR chest 1V IMPRESSION: No significant change since 11/01/2021. Faint patchy reticular nodular opacities in lungs bilateral. No focal dense consolidation.
--- NOTE | ~2021-11-02 | XR_ITS ---
EXAMINATION: XR CHEST CLINICAL INFORMATION: TLC placement. COMPARISON: 11/02/2021 chest radiograph. TECHNIQUE: Frontal view of the chest was obtained. Positioning is suboptimal. The left costophrenic angle is not included on the study. FINDINGS: Support devices: Right internal jugular TLC with tip terminating at the cavoatrial junction. Endotracheal tube is seen at the tip terminating 3 cm proximal to kellen. A nasogastric tube is seen with tip below the left hemidiaphragm with, but not included on the study. The visualized lungs are clear. The heart and mediastinal structures are unremarkable. No pneumothorax. Multilevel healed rib fractures are noted bilaterally. XR/XR chest 1V IMPRESSION: Right TLC with tip terminating at the cavoatrial junction. No acute cardiopulmonary process.
--- NOTE | 2021-11-02 14:03 | ECG_ITS ---
Test Reason : SOB Blood Pressure : / mmHG Vent. Rate : 085 BPM Atrial Rate : 085 BPM P-R Int : 144 ms QRS Dur : 094 ms QT Int : 414 ms P-R-T Axes : 060 017 038 degrees QTc Int : 492 ms Normal sinus rhythm Septal infarct , age undetermined Possible Inferior infarct , age undetermined Abnormal ECG When compared with ECG of 01-NOV-2021 16:25, No significant change was found Referred By: Josee Araya Electronically Signed By:CANDI VARGAS
--- NOTE | 2021-11-02 14:10 | ED.SOB ---
HPI - SOB/Dyspnea General Chief Complaint: Dyspnea Stated Complaint: COPD/ASTHMA Time Seen by Provider: 11/02/21 14:03 Source: patient and EMS Mode of arrival: EMS History of Present Illness HPI Narrative: 51-year-old female who arrives via EMS with increased shortness of breath and received under 25 mg Solu-Medrol as well as 2 DuoNebs EN route. Patient appears to be very drowsy but does awaken and oxygenation has improved since initial presentation for EMS. Patient denies any chest pain or palpitations at this time. Related Data Home Medications Medication Instructions Recorded Confirmed albuterol sulfate 90 mcg/actuation 2 puff inhalation Q4H PRN 12/30/19 09/24/21 aerosol inhaler (ProAir HFA) Shortness Of Breath Or Wheezing loratadine 10 mg tablet (Claritin) 10 mg PO DAILY 12/30/19 09/24/21 montelukast 10 mg tablet 10 mg PO BEDTIME 12/30/19 09/24/21 diltiazem HCl 360 mg capsule,24 1 cap PO DAILY 11/16/20 09/24/21 hr,extended release (Tiadylt ER) roflumilast 500 mcg tablet 1 tab PO DAILY 11/16/20 09/24/21 (Daliresp) rosuvastatin 5 mg tablet 1 tab PO BEDTIME 11/16/20 09/24/21 insulin lispro 100 unit/mL See Protocol subcut TIDAC 12/14/20 09/24/21 subcutaneous solution (Humalog U-100 Insulin) lidocaine 5 % topical patch 1 patch topical DAILY 12/14/20 09/24/21 metformin 500 mg tablet,extended 2 tab PO BID 05/18/21 09/24/21 release 24 hr ergocalciferol (vitamin D2) 1,250 1,250 mcg PO QWEEK 06/06/21 09/24/21 mcg (50,000 unit) capsule methadone 10 mg/mL oral concentrate 49 mg PO DAILY 06/06/21 09/24/21 insulin glargine 100 unit/mL 45 unit subcut BEDTIME 06/07/21 09/24/21 subcutaneous solution (Lantus U-100 Insulin) lisinopril 40 mg tablet 1 tab PO DAILY 07/30/21 09/24/21 ibuprofen 600 mg tablet 600 mg PO Q6H PRN Pain, Mild 09/04/21 09/24/21 glecaprevir 100 mg-pibrentasvir 40 3 tab PO DAILY 09/24/21 09/24/21 mg tablet (Mavyret) theophylline 400 mg 2 cap PO DAILY 09/24/21 09/24/21 capsule,extended release 24 hr (Arnoldo-24) Previous Rx's Medication Instructions Recorded immune glob,gamma(IgG) 10 40 g IV Q4W #2 ea 06/16/20 xpwi-xbm-xwun-IgA 0 to 50 mcg/mL IV solution sennosides 8.6 mg tablet (Natural 8.6 mg PO BEDTIME PRN constipation 11/24/20 Senna Laxative) #30 tabs tiotropium bromide 18 mcg capsule 1 cap inhalation DAILY #30 ea 06/25/21 with inhalation device (Spiriva with HandiHaler) acetaminophen 500 mg tablet 500 mg PO Q6H PRN pain or fever 06/27/21 (Tylenol Extra Strength) #20 tabs arformoterol 15 mcg/2 mL solution 2 ml inhalation Q12H 30 days #120 07/24/21 for nebulization (Brovana) mL budesonide 0.5 mg/2 mL suspension 0.5 mg (2 mL) inhalation BID #120 07/24/21 for nebulization mL hydralazine 10 mg tablet 10 mg PO TID #90 tabs 08/14/21 gabapentin 300 mg capsule 300 mg PO BID 30 days #60 caps 09/19/21 omeprazole 40 mg capsule,delayed 40 mg PO DAILY 30 days #30 caps 09/20/21 release ipratropium 0.5 mg-albuterol 3 mg 3 ml PO Q4H PRN for wheezing #540 10/03/21 (2.5 mg base)/3 mL nebulization mL soln diclofenac potassium 50 mg tablet 50 mg PO BID 30 days #60 tabs 10/08/21 prednisone 10 mg tablet See Rx Instructions PO .COMPLEX 10/15/21 #90 tabs ondansetron 4 mg disintegrating 4 mg PO Q6H PRN nausea and 11/01/21 tablet vomiting #10 tabs Allergies Allergy/AdvReac Type Severity Reaction Status Date / Time No Known Allergies Allergy Verified 10/04/21 11:30 [No Known Allergies*] Review of Systems Review of Systems: Yes Unobtainable due to mental condition PMFSH Past Medical History Medical History Abdominal pain Abnormal chest x-ray Asthma-COPD overlap syndrome Chronic respiratory failure Chronic respiratory failure Congestive heart failure COPD (chronic obstructive pulmonary disease) Diabetes mellitus Essential hypertension Hyperlipidemia, unspecified Hypertensive cardiovascular disease Hypogammaglobulinemia Limb swelling Morbid obesity Opioid dependence Poor dentition Pulmonary nodule Rib fractures Status asthmaticus with COPD (chronic obstructive pulmonary disease) Tobacco abuse Type 2 diabetes mellitus Type 2 diabetes mellitus with unspecified complications Surgical History H/O tubal ligation Family History Family History Father Diabetes Other Asthma Social History Social History Household Members: Children Household Members Other:: 3 Housing: Apartment Do you presently have visiting nurse or other home services: No Unable to assess alcohol history related to: Unknown Alcohol intake: never Patient Tobacco Use Status: Current everyday Tobacco user Tobacco use type: Cigarette Cigarettes Per Day: 1 Years Smoked: 35 e-Cigarette/Vaping Use: Currently Using Second Hand Smoke Exposure: No Substance Use Type: Opiates Advance Directives: Yes Advance Directives on File: Yes Advance Directives Date on File: 06/12/21 service: No Current occupational status: disabled Physical Exam Vital Signs: Vital Signs: Last Vital Signs Pulse 118 H 11/02/21 16:11 Resp 20 11/02/21 16:11 BP 156/78 H 11/02/21 14:10 Pulse Ox 100 11/02/21 14:10 O2 Del Method 11/02/21 14:10 FiO2 40 11/02/21 14:10 BMI result Body Mass Index 37.9 VITAL SIGNS: Reviewed. GENERAL: Chronically ill, in moderate distress. HEAD: Normocephalic/atraumatic EYES: PERRLA, EOMI EARS: Ext canals without abnormality OROPHARYNX: no oral lesions noted, posterior pharynx NECK: Supple, no adenopathy LUNGS: Increased work of breathing, tachypneic, decreased breath sounds. SpO2<95> on BiPAP CARDIOVASCULAR: Regular rate and rhythm without noted murmurs ABDOMEN: Soft, non-tender, +distended with bowel sounds. MUSCULOSKELETAL: No tenderness, deformities, or effusions noted on gross inspection. EXTREMITIES: No cyanosis, clubbing or edema. SKIN: Inspection of the skin reveals no rashes, ecchymosis noted to bilateral upper extremities. NEUROLOGIC: Drowsy and oriented x 3. Strength and sensation to light touch were grossly intact x 4. Course Course Course Narrative: 1404: 51-year-old female with history and clinical presentation most consistent with acute COPD exacerbation and in addition to medications provided by EMS patient received 10 mg of albuterol as well as Narcan after review of VBG demonstrates pCO2 of 67 and pH of 7.43. Patient did appear to be more awake initially but then became increasingly somnolent with increased work of breathing. 1515: On re-examination patient was noted to have poor air movement and given patient's mentation and copious secretion patient was intubated for acute respiratory failure. Patient is getting lactic acid/blood cultures/antibiotics. I discussed case with the fixed wing aircraft flight engineer who accepts admission. Patient was placed on a propofol drip and remains hemodynamically stable. MDM - SOB/Dyspnea Lab Data Result diagrams: 11/02/21 14:46 11/02/21 14:46 Labs: Lab Results 11/02/21 11/02/21 11/02/21 Range/Units 14:42 14:46 14:46 WBC 14.4 H (4.8-10.8) X10*3/uL RBC 4.66 (4.20-5.50) X10*6/uL Hgb 13.7 (12.0-16.0) g/dl Hct 45.4 (37.0-47.0) % MCV 97.4 (80.0-98.0) fL MCH 29.4 (27.0-33.0) pg MCHC 30.2 L (31.0-35.0) g/dl RDW 13.0 (11.0-16.0) % Plt Count 218 (160-400) X10*3/uL MPV Not Reportable Immature Gran % (Auto) 0.4 (0.0-0.4) % Neut % (Auto) 83.3 H (45-73) % Lymph % (Auto) 10.0 L (20-40) % Sanders % (Auto) 5.5 (2-11) % Eos % (Auto) 0.5 (0-4) % Baso % (Auto) 0.3 (0-2) % Lymph # (Auto) 1.4 (1.2-4.9) X10*3/uL Sanders # (Auto) 0.8 (0.1-1.2) X10*3/uL Eos # (Auto) 0.1 (0.0-0.4) X10*3/uL Baso # (Auto) 0.0 (0.0-0.2) X10*3/uL Abs Immat Gran (auto) 0.06 H (0.00-0.03) X10*3/uL Absolute Neuts (auto) 12.0 H (2.0-8.3) x10*3/uL Absolute Nucleated RBC 0.000 (0.0-0.012) X10*3/uL Nucleated RBC % (auto) 0.0 (0.0-0.2) /100WBC Smear Tech's Comments VERIFIED VBG pH (7.32-7.43) VBG pCO2 mmHg VBG pO2 mmHg VBG HCO3 (22-26) mmol/L VBG O2 Saturation % VBG Base Excess mmol/L Sodium 137 (135-145) mmol/L Potassium 4.6 (3.3-5.1) mmol/L Chloride 90 L (96-108) mmol/L Carbon Dioxide 35 H (22-29) mmol/L Anion Gap 17 (12-20) BUN 11 (9-16) mg/dL Creatinine 0.56 (0.5-1.4) mg/dL Estim Creat Clear Calc 127.0 Estimated GFR > 60 Random Glucose 166 H (60-115) mg/dL Calcium 9.6 (8.4-10.2) mg/dL Total Bilirubin 0.2 (0.0-1.0) mg/dL AST 17 (5-31) U/L ALT 16 (0-31) U/L Alkaline Phosphatase 116 (39-117) U/L B-Natriuretic Peptide < 10 (<100) pg/mL Total Protein 7.9 (6.5-8.0) g/dL Albumin 3.8 (3.5-5.0) g/dL 11/02/21 Range/Units 14:49 WBC (4.8-10.8) X10*3/uL RBC (4.20-5.50) X10*6/uL Hgb (12.0-16.0) g/dl Hct (37.0-47.0) % MCV (80.0-98.0) fL MCH (27.0-33.0) pg MCHC (31.0-35.0) g/dl RDW (11.0-16.0) % Plt Count (160-400) X10*3/uL MPV Immature Gran % (Auto) (0.0-0.4) % Neut % (Auto) (45-73) % Lymph % (Auto) (20-40) % Sanders % (Auto) (2-11) % Eos % (Auto) (0-4) % Baso % (Auto) (0-2) % Lymph # (Auto) (1.2-4.9) X10*3/uL Sanders # (Auto) (0.1-1.2) X10*3/uL Eos # (Auto) (0.0-0.4) X10*3/uL Baso # (Auto) (0.0-0.2) X10*3/uL Abs Immat Gran (auto) (0.00-0.03) X10*3/uL Absolute Neuts (auto) (2.0-8.3) x10*3/uL Absolute Nucleated RBC (0.0-0.012) X10*3/uL Nucleated RBC % (auto) (0.0-0.2) /100WBC Smear Tech's Comments VBG pH 7.43 (7.32-7.43) VBG pCO2 67 mmHg VBG pO2 198 mmHg VBG HCO3 45 H (22-26) mmol/L VBG O2 Saturation 99.0 % VBG Base Excess 16.6 mmol/L Sodium (135-145) mmol/L Potassium (3.3-5.1) mmol/L Chloride (96-108) mmol/L Carbon Dioxide (22-29) mmol/L Anion Gap (12-20) BUN (9-16) mg/dL Creatinine (0.5-1.4) mg/dL Estim Creat Clear Calc Estimated GFR Random Glucose (60-115) mg/dL Calcium (8.4-10.2) mg/dL Total Bilirubin (0.0-1.0) mg/dL AST (5-31) U/L ALT (0-31) U/L Alkaline Phosphatase (39-117) U/L B-Natriuretic Peptide (<100) pg/mL Total Protein (6.5-8.0) g/dL Albumin (3.5-5.0) g/dL Procedures Intubation Time out performed: Yes sedative: Etomidate Mg Given: 20 paralytic: Rocuronium Mg Given: 100 Laryngoscope: fiber optic video scope Assist Device Used: fiber optic device ET Tube Size: 7.5 ET Tube Uncuffed: Yes Tube Secured Depth (cm): 24 Tube Secured Location: lips Tube Placement Confirmation: visualized tube passing through cords, equal breath sounds bilaterally, no breath sounds over epigastrium and confirmation by capnometry Patient Tolerated Procedure: well Intubation Complications: none Critical Care Time Critical Care Time Critical Care Time: Yes Total Critical Care Time: 30 Attestation: I personally attest to this time spent taking care of the patient. Discharge Plan Discharge Clinical Impression: Acute respiratory failure, COPD exacerbation, Vomiting Patient Disposition: Admitted As Inpatient
[2021-11-02] MEDS: Naloxone HCl Nasal 4 MG SPRAY NOSTRILALT (14:23)
[2021-11-02] MEDS: Albuterol Sulfate (0.083%) 2.5 MG/3 ML VIAL.NEB 10 MG INHALE ×2 (14:29→16:09)
[2021-11-02 14:54] LABS: Venous Blood Gas Refer to POC result
[2021-11-02 14:55] LABS: VBG Base Excess 16.6 mmol/L; VBG HCO3 45 mmol/L (22-26); VBG pCO2 67 mmHg; VBG pH 7.43 (7.32-7.43); VBG pO2 198 mmHg
[2021-11-02 14:57] LABS: Basophils Percent Auto 0.3 % (0-2); Eosinophils Absolute Auto 0.1 X10*3/uL (0.0-0.4); Eosinophils Percent Auto 0.5 % (0-4); Hematocrit 45.4 % (37.0-47.0); Hemoglobin 13.7 g/dl (12.0-16.0); Imm Gran Abs Auto 0.06 X10*3/uL (0.00-0.03); Imm Gran Pct Auto 0.4 % (0.0-0.4); Lymphocytes Absolute Auto 1.4 X10*3/uL (1.2-4.9); MANUAL DIFF FLAG SCAN; Mean Corpuscular HGB Conc 30.2 g/dl (31.0-35.0); Mean Corpuscular Hemoglobin 29.4 pg (27.0-33.0); Mean Corpuscular Volume 97.4 fL (80.0-98.0); Monocytes Absolute Auto 0.8 X10*3/uL (0.1-1.2); Monocytes Percent Auto 5.5 % (2-11); Neutrophils Percent Auto 83.3 % (45-73); PLT CLUMP 1; Red Blood Count 4.66 X10*6/uL (4.20-5.50); SCAN SMEAR FLAG 1
[2021-11-02 15:15] LABS: Alanine Aminotransferase 16 U/L (0-31); Albumin Level 3.8 g/dL (3.5-5.0); Alkaline Phosphatase 116 U/L (39-117); Anion Gap 17 (12-20); Aspartate Amino Transferase 17 U/L (5-31); Bilirubin Total 0.2 mg/dL (0.0-1.0); Blood Urea Nitrogen 11 mg/dL (9-16); Calcium 9.6 mg/dL (8.4-10.2); Carbon Dioxide 35 mmol/L (22-29); Chloride 90 mmol/L (96-108); Estimated Glomerular Filt Rate > 60; Glucose Random 166 mg/dL (60-115); Platelet Count 218 X10*3/uL (160-400); Potassium 4.6 mmol/L (3.3-5.1); Sodium 137 mmol/L (135-145); Total Protein 7.9 g/dL (6.5-8.0); White Blood Count 14.4 X10*3/uL (4.8-10.8)
[2021-11-02 15:16] LABS: SLIDE REVIEW VERIFIED
--- NOTE | 2021-11-02 15:30 | PC.NURSE ---
Addendum entered by Monique Dawson 11/02/21 16:56: 1545: Vent settings as follows pressure control, 5.0, 30% Addendum entered by Monique Dawson 11/02/21 16:55: 1542: Pt intubated successfully with 7.5 tube 24 CRYSTAL. OG tube inserted, CXR obtained. Original Note: Pt moved to room 5 in prep for intubation, pt obtunded, responsive to loud verbal stimuli or tactile stimuli. On bipap. Skin color dusky with increased work of breathing. Dr Ray, this chief writer, and RT at bedside for intubation.
[2021-11-02] MEDS: Etomidate 20 MG/10 ML VIAL IVPUSH (15:40)
[2021-11-02] MEDS: Rocuronium Bromide 50 MG/5 ML VIAL 100 MG IVPUSH (15:41)
[2021-11-02] MEDS: propofoL 1,000 MG/100 ML VIAL 16.94 MG IVCONT (15:55)
[2021-11-02 16:12] LABS: B Type Natriuretic Peptide < 10 pg/mL (<100)
[2021-11-02 16:48] LABS: VBG Base Excess 20.2 mmol/L; VBG HCO3 50 mmol/L (22-26); VBG pCO2 82 mmHg; VBG pO2 48 mmHg
[2021-11-02 16:52] LABS: Venous Blood Gas Refer to POC result
--- NOTE | 2021-11-02 17:07 | PC.NURSE ---
Unable to start abx d/t limited IV access and drug compatibility. Will attempt another access point. Sedation running in IV line at this time
[2021-11-02 17:11] LABS: COVID-19 Test Negative (Negative); IDNOW Serial# 16C4AD1C
[2021-11-02 17:45] LABS: Amphetamine Screen Urine Not Detected (Not Detect); Barbiturates, Urine Not Detected (Not Detect); Benzodiazepines Screen Urine Not Detected (Not Detect); Cannabinoid Screen Urine Not Detected (Not Detect); Cocaine Screen Urine Not Detected (Not Detect); Fentanyl, urine Not Detected (Not Detect); Opiate Screen Urine Not Detected (Not Detect); Phencyclidine Screen Urine Not Detected (Not Detect)
--- NOTE | 2021-11-02 17:47 | PHA.MEDREC ---
Pharmacy Consult ? Medication Reconciliation Pharmacy has completed the medication reconciliation.
[2021-11-02 18:22] LABS: Glucose, Whole Blood 253 mg/dL (60-115)
[2021-11-02] MEDS: Heparin Sodium,Porcine 5,000 UNIT/ML VIAL 5000 UNIT SUBCUT (18:23)
[2021-11-02] MEDS: Chlorhexidine Gluc Oral Rinse 15 ML MOUTHWASH BUCCAL (18:23)
[2021-11-02] MEDS: Insulin Lispro 100 UNIT/ML 3 ML VIAL SUBCUT (18:24)
[2021-11-02] MEDS: fentaNYL citrate/NS 1,000 MCG/100 ML PLAST..BAG 2.5 MCG IVCONT (18:28)
--- NOTE | 2021-11-02 18:57 | PC.NURSE ---
1730: OG tube put out approx 400ml of yellow/brown gastric contents.
[2021-11-02] MEDS: Albuterol/Iprat 2.5/0.5MG 3 ML AMPUL.NEB INHALE ×2 (18:59→23:00)
[2021-11-02] MEDS: propofoL 1,000 MG/100 ML VIAL 28.23 MG IVCONT ×2 (19:16→21:53)
--- NOTE | 2021-11-02 20:01 | W.PM.CCHP ---
Procedures Date of Service Date of Service: 11/02/21 Central Line Placement Right IJ: Central Line Comments: Patient with poor peripheral access, requiring multiple lab draws and medications.? Central line placed Right internal jugular triple lumen central venous catheter placed in usual sterile conditions under ultrasound guidance for appropriate vascular access without immediate complications. Central line position verified with Chest XRAY. Consent for Procedure: Emergent-no informed consent obtained Time out performed: Yes Sterile Technique Used: Yes Patient placed on monitor/pulse ox: Yes MD prep: mask, gown and gloves Central line prep: Povidone-Iodine 1% Local anesthesia used: other anesthetic (On propofol for vent ) Ultrasound used for placement: Yes Central line lumen inserted: triple Post procedure: sutured in place, good blood return, all ports aspirated, flushed, capped and sterile dressing applied Post procedure x-ray: tip of catheter in good position and no pneumothorax seen Patient tolerated procedure: well Complications: none
[2021-11-02] MEDS: Piperacillin Sodium/Tazobactam 3.375 GM in 0.9 % Sodium Chloride 50 ML IV (20:05)
[2021-11-02] MEDS: acetaZOLAMIDE sodium 500 MG VIAL 250 MG IVPUSH (20:05)
--- NOTE | 2021-11-02 20:07 | P.HPCC_ITS ---
History of Present Illness Date of Service: 11/02/21 Attending physician on admission: Rasta Geller Chief Complaint: dyspnea The patient is a 51-year-old woman with a past medical history of asthma COPD overlap syndrome, chronic? hypercarbic and hypoxic respiratory failure currently on 2l via [place] home oxygen,? diabetes mellitus, hypertension, hyperlipidemia, tobacco use, and Hypogammaglobulinemia on IVIG,? opioid dependence on methadone who was recently seen in the emergency room? yesterday for? nausea and vomiting that improved with PO zofran.? Today,? patient arrived at the emergency room via EMS with complaints of increased shortness of breath.? She received? 25 of Solu- Medrol and 2 DuoNebs EN route to hospital.? In the emergency room the patient progressively? decompensated,? was in respiratory distress with significant amount of secretions requiring emergent? intubation? for airway protection.? ?Laboratory data significant for WBC? 14.4, chloride 90 and serum bicarb? 35 ?Vbgs as following? 7.43/67/198/45 ?ED course:? she received albuterol 10 mg,? nasal naloxone 4 mg x2,? and Zosyn. Review of Systems Review of Systems: unable to perform as patient is intubated PMFSH Past Medical History Medical History Abdominal pain Abnormal chest x-ray Asthma-COPD overlap syndrome Chronic respiratory failure Chronic respiratory failure Congestive heart failure COPD (chronic obstructive pulmonary disease) Diabetes mellitus Essential hypertension Hyperlipidemia, unspecified Hypertensive cardiovascular disease Hypogammaglobulinemia Limb swelling Morbid obesity Opioid dependence Poor dentition Pulmonary nodule Rib fractures Status asthmaticus with COPD (chronic obstructive pulmonary disease) Tobacco abuse Type 2 diabetes mellitus Type 2 diabetes mellitus with unspecified complications Family History Family History Father Diabetes Other Asthma Surgical History Surgical History H/O tubal ligation Social History Social History Household Members: Children Household Members Other:: 3 Housing: Apartment Do you presently have visiting nurse or other home services: No Unable to assess alcohol history related to: Unknown Alcohol intake: never Patient Tobacco Use Status: Current everyday Tobacco user Tobacco use type: Cigarette Cigarettes Per Day: 1 Years Smoked: 35 e-Cigarette/Vaping Use: Currently Using Second Hand Smoke Exposure: No Substance Use Type: Opiates Advance Directives: Yes Advance Directives on File: Yes Advance Directives Date on File: 06/12/21 service: No Current occupational status: disabled Meds Allergies Allergy/AdvReac Type Severity Reaction Status Date / Time No Known Allergies Allergy Verified 10/04/21 11:30 [No Known Allergies*] Active Medications: Current Medications Acetazolamide (Acetazolamide Sodium 500 Mg Vial) 250 mg IVPUSH BID ANA Albuterol/Ipratropium (Albuterol/Iprat 2.5/0.5mg 3 Ml Ampul.Neb) 3 ml INHALE RQ6H [facility] Last Admin: 11/02/21 18:59 Dose: 3 ml Chlorhexidine Gluconate (Chlorhexidine Gluc Oral Rinse 15 Ml Mouthwash) 15 ml BUCCAL Q8H ANA Last Admin: 11/02/21 18:23 Dose: 15 ml Heparin Sodium (Porcine) (Heparin Sodium,Porcine 5,000 Unit/Ml Vial) 5,000 unit SUBCUT Q8H [facility] Last Admin: 11/02/21 18:23 Dose: 5,000 unit Propofol (Diprivan) 1,000 mg in 100 mls @ 0 mls/hr IVCONT .Q0M [facility]; Protocol Last Admin: 11/02/21 19:16 Dose: 50 mcg/kg/min, 28.23 mls/hr Piperacillin Sod/Tazobactam (Sod 3.375 gm/ Sodium Chloride) 50 mls @ 100 mls/hr IV Q6H ANA Fentanyl (Sublimaze/Ns) 1,000 mcg in 100 mls @ 0 mls/hr IVCONT .Q0M [facility]; Protocol Last Admin: 11/02/21 18:28 Dose: 25 mcg/hr, 2.5 mls/hr Insulin Glargine (Insulin Glargine,Hum.Rec.Anlog 100 Unit/Ml 10 Ml Vial) 30 unit SUBCUT DAILY [facility] Insulin Human Lispro (Insulin Lispro 100 Unit/Ml 3 Ml Vial) 0 unit SUBCUT Q6H ANA; Protocol Last Admin: 11/02/21 18:24 Dose: 6 unit Naloxone HCl (Naloxone Hcl 0.4 Mg/Ml Vial) 0.2 mg IVPUSH Q2M PRN PRN Reason: Excessive sedation or RR < 8 Omeprazole (Omeprazole 40 Mg Capsule.) 40 mg PO DAILY@0630 [facility] Home Medications Medication Instructions Recorded Confirmed Last Taken Type albuterol sulfate 90 mcg/actuation 2 puff inhalation Q4H PRN 12/30/19 11/02/21 02/21/21 History aerosol inhaler (ProAir HFA) Shortness Of Breath Or Wheezing loratadine 10 mg tablet (Claritin) 10 mg PO DAILY 12/30/19 11/02/21 02/21/21 History montelukast 10 mg tablet 10 mg PO BEDTIME 12/30/19 11/02/21 02/20/21 History diltiazem HCl 360 mg capsule,24 1 cap PO DAILY 11/16/20 11/02/21 02/21/21 History hr,extended release (Tiadylt ER) roflumilast 500 mcg tablet 1 tab PO DAILY 11/16/20 11/02/21 02/21/21 History (Daliresp) rosuvastatin 5 mg tablet 1 tab PO BEDTIME 11/16/20 11/02/21 02/20/21 History insulin lispro 100 unit/mL See Protocol subcut TIDAC 12/14/20 11/02/21 02/21/21 History subcutaneous solution (Humalog U-100 Insulin) metformin 500 mg tablet,extended 2 tab PO BID 05/18/21 11/02/21 Unknown History release 24 hr ergocalciferol (vitamin D2) 1,250 1,250 mcg PO QWEEK 06/06/21 11/02/21 Unknown History mcg (50,000 unit) capsule methadone 10 mg/mL oral concentrate 49 mg PO DAILY 06/06/21 09/24/21 07/30/21 History insulin glargine 100 unit/mL 45 unit subcut BEDTIME 06/07/21 11/02/21 Unknown History subcutaneous solution (Lantus U-100 Insulin) lisinopril 40 mg tablet 1 tab PO DAILY 07/30/21 11/02/21 Unknown History theophylline 400 mg 2 cap PO DAILY 09/24/21 11/02/21 Unknown History capsule,extended release 24 hr (Arnoldo-24) glecaprevir 100 mg-pibrentasvir 40 3 tab PO DAILY 11/02/21 11/02/21 Unknown History mg tablet (Mavyret) hydralazine 25 mg tablet 1 tab PO TID 11/02/21 11/02/21 Unknown History insulin lispro 100 unit/mL 4 unit subcut TIDAC 11/02/21 11/02/21 Unknown History subcutaneous solution omeprazole 40 mg capsule,delayed 40 mg PO DAILY@0630 11/02/21 11/02/21 Unknown History release Physical Exam Vital Signs: Vital Signs: Last Vital Signs Temp 100.0 F 11/02/21 19:00 Pulse 107 H 11/02/21 19:00 Resp 20 11/02/21 19:00 BP 99/61 11/02/21 19:00 Pulse Ox 92 11/02/21 19:00 O2 Del Method 11/02/21 19:00 O2 Flow Rate 100 11/02/21 15:40 FiO2 40 11/02/21 19:00 BMI result Body Mass Index 37.9 Constitutional: patient is intubated Head: Normocephalic. Eyes: Pupils are equal, round and reactive to light. Extraocular muscles intact. Ear, Nose and Throat: Oropharynx clear, mucous membranes moist. trachea midlight Neck: Supple, Full range of motion. Respiratory: lungs diminished throughout.? on PC settings 20/26/5/40% Cardiovascular: Sinus tach low 100s. S1 S2 regular. No murmurs, rubs or gallops. Gastrointestinal: Abdomen soft, non-tender,? Normal bowel sounds. Genitourinary: No costovertebral angle tenderness. Neurologic: No focal neurological deficits. Moves all extremities spontaneously. Skin:? scattered ecchymosis? Results Labs CBC and Chem 7: 11/02/21 14:46 11/02/21 14:46 Labs: Laboratory Results - last 24 hr 11/02/21 11/02/21 11/02/21 14:42 14:46 14:46 MCV 97.4 MCH 29.4 MCHC 30.2 L RDW 13.0 Plt Count 218 MPV Not Reportable Immature Gran % (Auto) 0.4 Neut % (Auto) 83.3 H Lymph % (Auto) 10.0 L [place] % (Auto) 5.5 Eos % (Auto) 0.5 Baso % (Auto) 0.3 Lymph # (Auto) 1.4 [place] # (Auto) 0.8 Eos # (Auto) 0.1 Baso # (Auto) 0.0 Abs Immat Gran (auto) 0.06 H Absolute Neuts (auto) 12.0 H Absolute Nucleated RBC 0.000 Nucleated RBC % (auto) 0.0 Smear Tech's Comments VERIFIED VBG pH VBG pCO2 VBG pO2 VBG HCO3 VBG O2 Saturation VBG Base Excess Anion Gap 17 Estim Creat Clear Calc 127.0 Estimated GFR > 60 POC Glucose Random Glucose 166 H Calcium 9.6 Total Bilirubin 0.2 AST 17 ALT 16 Alkaline Phosphatase 116 B-Natriuretic Peptide < 10 Total Protein 7.9 Albumin 3.8 Urine Opiates Screen Urine Fentanyl Screen Ur Barbiturates Screen Ur Phencyclidine Scrn Ur Amphetamines Screen U Benzodiazepines Scrn Urine Cocaine Screen U Marijuana (THC) Screen COVID-19 (PAPO) [facility] 11/02/21 11/02/21 11/02/21 14:49 16:35 16:41 MCV MCH MCHC RDW Plt Count MPV Immature Gran % (Auto) Neut % (Auto) Lymph % (Auto) [place] % (Auto) Eos % (Auto) Baso % (Auto) Lymph # (Auto) [place] # (Auto) Eos # (Auto) Baso # (Auto) Abs Immat Gran (auto) Absolute Neuts (auto) Absolute Nucleated RBC Nucleated RBC % (auto) Smear Tech's Comments VBG pH 7.43 7.40 VBG pCO2 67 82 VBG pO2 198 48 VBG HCO3 45 H 50 H VBG O2 Saturation 99.0 77.0 VBG Base Excess 16.6 20.2 Anion Gap Estim Creat Clear Calc Estimated GFR POC Glucose Random Glucose Calcium Total Bilirubin AST ALT Alkaline Phosphatase B-Natriuretic Peptide Total Protein Albumin Urine Opiates Screen Urine Fentanyl Screen Ur Barbiturates Screen Ur Phencyclidine Scrn Ur Amphetamines Screen U Benzodiazepines Scrn Urine Cocaine Screen U Marijuana (THC) Screen COVID-19 (PAPO) Negative COVID-[facility] See Note 11/02/21 11/02/21 17:18 18:19 MCV MCH MCHC RDW Plt Count MPV Immature Gran % (Auto) Neut % (Auto) Lymph % (Auto) [place] % (Auto) Eos % (Auto) Baso % (Auto) Lymph # (Auto) [place] # (Auto) Eos # (Auto) Baso # (Auto) Abs Immat Gran (auto) Absolute Neuts (auto) Absolute Nucleated RBC Nucleated RBC % (auto) Smear Tech's Comments VBG pH VBG pCO2 VBG pO2 VBG HCO3 VBG O2 Saturation VBG Base Excess Anion Gap Estim Creat Clear Calc Estimated GFR POC Glucose 253 H Random Glucose Calcium Total Bilirubin AST ALT Alkaline Phosphatase B-Natriuretic Peptide Total Protein Albumin Urine Opiates Screen Not Detected Urine Fentanyl Screen Not Detected Ur Barbiturates Screen Not Detected Ur Phencyclidine Scrn Not Detected Ur Amphetamines Screen Not Detected U Benzodiazepines Scrn Not Detected Urine Cocaine Screen Not Detected U Marijuana (THC) Screen Not Detected COVID-19 (PAPO) COVID-19 Clin Com Imaging Radiologist's Impressions: Impressions Chest X-Ray 11/02/21 14:23 IMPRESSION: No significant change since 11/01/2021. Faint patchy reticular nodular opacities in lungs bilateral. No focal dense consolidation. Chest X-Ray 11/02/21 15:56 IMPRESSION: ET tube 1.2 cm above the kellen. NG tube as described above. Possible developing right upper lobe opacities. Attention to follow-up. Vascular congestion here but no overt failure Assessment and Plan (1) Acute respiratory failure: Status: Acute (2) COPD exacerbation: Status: Acute (3) Pulmonary congestion: Status: Acute (4) Aspiration into airway: Status: Acute (5) Leukocytosis: Status: Acute Plan 51-year-old female? with asthma COPD overlap syndrome, chronic hypoxic and hypercapnic respiratory failure on home O2,? who presented to the emergency room with worsening dyspnea,? requiring emergent intubation being admitted to the ICU for acute respiratory failure Plan: Neuro:? No acute issues. Cardiac:?? Pulmonary congestion:? and chest x-ray patient is shown to have some congestio n.? She has chronic? elevated bicarb, Will give diamox.? Monitor for diuresing Pulmonary:?? acute hypoxic and hypercapnic respiratory failure secondary to COPD exacerbation.? She is chronically on prednisone,? received systemic glucocorticoids en route to hospital. Will cont? systemic? glucocorticoids, nebulized bronchodilators and Diamox.? ?Aspiration-? patient id aspirated during intubation,? noted on CT scan.? Will cover with IV Zosyn.? No evidence of severe sepsis as lactic acid is only 1.9 Renal:? No acute issues.?? Endo:? No acute issues.?? GI:?Ileus ? :? patient was noted to have? significant amount? gastric? output? from OG tube.? CT of the abdomen is pending.? Will continue with low wall suction ID:? ?Mild leukocytosis,? this is likely due to chronic steroid.? Had possible asp iration during intubation. Being cover with empiric antibiotic Heme/Onc:? No acute issues. Psych:? No acute issues. Miscellaneous:? No acute issues. Prophylaxis:? heparin,? IV PPI Diet:? NPO? Critical care time spent:? 60 minutes Case discussed with Dr Geller Critical Care Time Critical Care Time (minutes): 60
[2021-11-02 21:17] LABS: Lactic Acid 1.9 mmol/L (0.5-2.0)
[2021-11-02] MEDS: methylPREDNISolone Sod Succ 125 MG/2 ML VIAL 80 MG IVPUSH (22:12)
[2021-11-02] MEDS: fentaNYL citrate/NS 1,000 MCG/100 ML PLAST..BAG 20 MCG IVCONT (22:55)
[2021-11-02 23:56] LABS: Glucose, Whole Blood 220 mg/dL (60-115)
[2021-11-03] VITALS (32 sets, daily range): BP systolic 86–127; BP diastolic 49–82; PULSE 99–122; RESP 19–23; TEMP 34.7–38.4; O2SAT 20–99; BMI 33.7
[2021-11-03] MEDS: Insulin Lispro 100 UNIT/ML 3 ML VIAL SUBCUT ×4 (00:05→23:32)
[2021-11-03] MEDS: Chlorhexidine Gluc Oral Rinse 15 ML MOUTHWASH BUCCAL ×3 (00:06→16:26)
[2021-11-03] MEDS: Piperacillin Sodium/Tazobactam 3.375 GM in 0.9 % Sodium Chloride 50 ML IV ×5 (00:06→23:33)
[2021-11-03] MEDS: Heparin Sodium,Porcine 5,000 UNIT/ML VIAL 5000 UNIT SUBCUT ×3 (01:08→18:14)
[2021-11-03] MEDS: propofoL 1,000 MG/100 ML VIAL 28.23 MG IVCONT ×8 (01:09→23:30)
[2021-11-03] MEDS: fentaNYL citrate/NS 1,000 MCG/100 ML PLAST..BAG 20 MCG IVCONT ×5 (03:42→23:28)
[2021-11-03] MEDS: Pantoprazole Sodium 40 MG/10 ML VIAL IVPUSH (05:00)
[2021-11-03 05:36] LABS: Basophils Percent Auto 0.1 % (0-2); Hematocrit 38.5 % (37.0-47.0); Hemoglobin 12.3 g/dl (12.0-16.0); Imm Gran Abs Auto 0.08 X10*3/uL (0.00-0.03); Imm Gran Pct Auto 0.6 % (0.0-0.4); Lymphocytes Absolute Auto 0.5 X10*3/uL (1.2-4.9); Lymphocytes Percent Auto 3.6 % (20-40); MANUAL DIFF FLAG SCAN; Mean Corpuscular HGB Conc 31.9 g/dl (31.0-35.0); Mean Corpuscular Hemoglobin 29.3 pg (27.0-33.0); Mean Corpuscular Volume 91.7 fL (80.0-98.0); Mean Platelet Volume 9.5 fL (9.4-12.3); Monocytes Absolute Auto 0.3 X10*3/uL (0.1-1.2); Monocytes Percent Auto 2.2 % (2-11); Neutrophils Absolute Auto 13.1 x10*3/uL (2.0-8.3); Neutrophils Percent Auto 93.5 % (45-73); Platelet Count 253 X10*3/uL (160-400); Red Cell Distribution Width 12.6 % (11.0-16.0); SCAN SMEAR FLAG 1
[2021-11-03 05:39] LABS: VBG Base Excess 9.5 mmol/L; VBG HCO3 32 mmol/L (22-26); VBG pCO2 39 mmHg; VBG pH 7.53 (7.32-7.43); VBG pO2 41 mmHg
[2021-11-03 06:03] LABS: Glucose, Whole Blood 181 mg/dL (60-115)
[2021-11-03 06:08] LABS: Alanine Aminotransferase 15 U/L (0-31); Albumin Level 3.4 g/dL (3.5-5.0); Alkaline Phosphatase 96 U/L (39-117); Aspartate Amino Transferase 14 U/L (5-31); Bilirubin Total 0.5 mg/dL (0.0-1.0); Blood Urea Nitrogen 12 mg/dL (9-16); Calcium 9.3 mg/dL (8.4-10.2); Creatinine Clr Calc Pharmacy 98.2; Estimated Glomerular Filt Rate > 60; Glucose Random 170 mg/dL (60-115); Magnesium 1.6 mg/dL (1.6-2.6)
[2021-11-03 06:15] LABS: SLIDE REVIEW VERIFIED
[2021-11-03 06:16] LABS: Venous Blood Gas Refer to POC result
[2021-11-03 06:33] LABS: Anion Gap 15 (12-20); Carbon Dioxide 33 mmol/L (22-29); Chloride 94 mmol/L (96-108); Phosphorus 1.8 mg/dL (2.7-4.5); Potassium 3.3 mmol/L (3.3-5.1); Sodium 139 mmol/L (135-145); Total Protein 6.4 g/dL (6.5-8.0)
[2021-11-03] MEDS: Potassium Phosphate/NS 15 MMOL/250 ML PLAST..BAG 62.5 MMOL IV (07:53)
[2021-11-03] MEDS: Insulin Glargine,Hum.rec.anlog 100 UNIT/ML 10 ML VIAL 30 UNIT SUBCUT (08:12)
[2021-11-03] MEDS: acetaZOLAMIDE sodium 500 MG VIAL 250 MG IVPUSH ×2 (08:13→21:29)
[2021-11-03] MEDS: Albuterol/Iprat 2.5/0.5MG 3 ML AMPUL.NEB INHALE ×3 (08:23→19:13)
[2021-11-03] MEDS: methylPREDNISolone Sod Succ 125 MG/2 ML VIAL 80 MG IVPUSH ×2 (09:10→21:30)
[2021-11-03] MEDS: bisacodyL 10 MG SUPP.RECT PR (09:43)
[2021-11-03] MEDS: methADONE HCl 20 MG/2 ML ORAL.CONC 50 MG PO (09:43)
--- NOTE | 2021-11-03 11:03 | P.PNCC_ITS ---
Subjective Subjective Date of Service: 11/03/21 Interval History: 51-year-old lady with underlying history of asthma/COPD overlap syndrome, chronic hypercapnia and hypoxia on 2 L of supplemental oxygen, diabetes mellitus, hepatitis-C on treatment, hypertension hypogammaglobulinemia, opioid dependence on methadone admitted on 11/02/2021 with nausea/vomiting, acute hypoxic respiratory failure, likely secondary to an aspiration event, requiring intubation and ventilatory support. Her CT abdomen demonstrated no obstruction. His CT chest showed possible sequela on aspiration. Patient was started on empiric antibiotics and acetazolamide and admitted to the intensive care unit. No events overnight. Critical Care Time (minutes): 60 Physical Exam Vital Signs: Vital Signs: Last Vital Signs Temp 99.7 F 11/03/21 09:55 Pulse 119 H 11/03/21 09:55 Resp 20 11/03/21 09:55 BP 104/62 11/03/21 09:55 Pulse Ox 20 L 11/03/21 09:55 O2 Del Method 11/03/21 09:55 O2 Flow Rate 100 11/02/21 15:40 FiO2 30 11/03/21 09:55 BMI result Body Mass Index 33.7 Const: General: no acute distress and other (Sedated on the vent, arousable w ith sedation vacation) Nutritional Appearance: obese Eyes: Sclerae: sclerae normal EOM: EOMs intact bilaterally Neck: Neck: Yes no lymphadenopathy, Yes trachea midline and Yes supple Resp: Auscultation: clear to auscultation bilaterally Cardio: Rate: tachycardic Rhythm: regular rhythm Heart sounds: no gallops, no murmurs and no rubs GI: Palpation (GI): Soft to palpation and Other GI palpation findings present ( Nontender) Auscultation: normal bowel sounds Extrem: General: No clubbing, No cyanosis and Yes edema (Trace bilateral) Objective Data Labs CBC & Chem 7: 11/03/21 05:15 11/03/21 05:15 Labs: Laboratory Results - last 24 hr 11/02/21 11/02/21 11/02/21 14:42 14:46 14:46 WBC 14.4 H RBC 4.66 Hgb 13.7 Hct 45.4 MCV 97.4 MCH 29.4 MCHC 30.2 L RDW 13.0 Plt Count 218 MPV Not Reportable Immature Gran % (Auto) 0.4 Neut % (Auto) 83.3 H Lymph % (Auto) 10.0 L [place] % (Auto) 5.5 Eos % (Auto) 0.5 Baso % (Auto) 0.3 Lymph # (Auto) 1.4 [place] # (Auto) 0.8 Eos # (Auto) 0.1 Baso # (Auto) 0.0 Abs Immat Gran (auto) 0.06 H Absolute Neuts (auto) 12.0 H Absolute Nucleated RBC 0.000 Nucleated RBC % (auto) 0.0 Smear Tech's Comments VERIFIED VBG pH VBG pCO2 VBG pO2 VBG HCO3 VBG O2 Saturation VBG Base Excess Sodium 137 Potassium 4.6 Chloride 90 L Carbon Dioxide 35 H Anion Gap 17 BUN 11 Creatinine 0.56 Estim Creat Clear Calc 127.0 Estimated GFR > 60 POC Glucose Random Glucose 166 H Lactic Acid Calcium 9.6 Phosphorus Magnesium Total Bilirubin 0.2 AST 17 ALT 16 Alkaline Phosphatase 116 B-Natriuretic Peptide < 10 Total Protein 7.9 Albumin 3.8 Urine Opiates Screen Urine Fentanyl Screen Ur Barbiturates Screen Ur Phencyclidine Scrn Ur Amphetamines Screen U Benzodiazepines Scrn Urine Cocaine Screen U Marijuana (THC) Screen COVID-19 (PAPO) COVID-19 Clin Com 11/02/21 11/02/21 11/02/21 14:49 16:35 16:41 WBC RBC Hgb Hct MCV MCH MCHC RDW Plt Count MPV Immature Gran % (Auto) Neut % (Auto) Lymph % (Auto) [place] % (Auto) Eos % (Auto) Baso % (Auto) Lymph # (Auto) [place] # (Auto) Eos # (Auto) Baso # (Auto) Abs Immat Gran (auto) Absolute Neuts (auto) Absolute Nucleated RBC Nucleated RBC % (auto) Smear Tech's Comments VBG pH 7.43 7.40 VBG pCO2 67 82 VBG pO2 198 48 VBG HCO3 45 H 50 H VBG O2 Saturation 99.0 77.0 VBG Base Excess 16.6 20.2 Sodium Potassium Chloride Carbon Dioxide Anion Gap BUN Creatinine Estim Creat Clear Calc Estimated GFR POC Glucose Random Glucose Lactic Acid Calcium Phosphorus Magnesium Total Bilirubin AST ALT Alkaline Phosphatase B-Natriuretic Peptide Total Protein Albumin Urine Opiates Screen Urine Fentanyl Screen Ur Barbiturates Screen Ur Phencyclidine Scrn Ur Amphetamines Screen U Benzodiazepines Scrn Urine Cocaine Screen U Marijuana (THC) Screen COVID-19 (PAPO) Negative COVID-19 Clin Com See Note 11/02/21 11/02/21 11/02/21 17:18 18:19 20:48 WBC RBC Hgb Hct MCV MCH MCHC RDW Plt Count MPV Immature Gran % (Auto) Neut % (Auto) Lymph % (Auto) [place] % (Auto) Eos % (Auto) Baso % (Auto) Lymph # (Auto) [place] # (Auto) Eos # (Auto) Baso # (Auto) Abs Immat Gran (auto) Absolute Neuts (auto) Absolute Nucleated RBC Nucleated RBC % (auto) Smear Tech's Comments VBG pH VBG pCO2 VBG pO2 VBG HCO3 VBG O2 Saturation VBG Base Excess Sodium Potassium Chloride Carbon Dioxide Anion Gap BUN Creatinine Estim Creat Clear Calc Estimated GFR POC Glucose 253 H Random Glucose Lactic Acid 1.9 Calcium Phosphorus Magnesium Total Bilirubin AST ALT Alkaline Phosphatase B-Natriuretic Peptide Total Protein Albumin Urine Opiates Screen Not Detected Urine Fentanyl Screen Not Detected Ur Barbiturates Screen Not Detected Ur Phencyclidine Scrn Not Detected Ur Amphetamines Screen Not Detected U Benzodiazepines Scrn Not Detected Urine Cocaine Screen Not Detected U Marijuana (THC) Screen Not Detected COVID-19 (PAPO) COVID-19 Clin Com 11/02/21 11/03/21 11/03/21 23:52 05:15 05:15 WBC 14.0 H RBC 4.20 Hgb 12.3 Hct 38.5 MCV 91.7 D MCH 29.3 MCHC 31.9 RDW 12.6 Plt Count 253 MPV 9.5 Immature Gran % (Auto) 0.6 H Neut % (Auto) 93.5 H Lymph % (Auto) 3.6 L [place] % (Auto) 2.2 Eos % (Auto) 0.0 Baso % (Auto) 0.1 Lymph # (Auto) 0.5 L [place] # (Auto) 0.3 Eos # (Auto) 0.0 Baso # (Auto) 0.0 Abs Immat Gran (auto) 0.08 H Absolute Neuts (auto) 13.1 H Absolute Nucleated RBC 0.000 Nucleated RBC % (auto) 0.0 Smear Tech's Comments VERIFIED VBG pH VBG pCO2 VBG pO2 VBG HCO3 VBG O2 Saturation VBG Base Excess Sodium 139 Potassium 3.3 D Chloride 94 L Carbon Dioxide 33 H Anion Gap 15 BUN 12 Creatinine 0.68 Estim Creat Clear Calc 98.2 Estimated GFR > 60 POC Glucose 220 H Random Glucose 170 H Lactic Acid Calcium 9.3 Phosphorus 1.8 L Magnesium 1.6 Total Bilirubin 0.5 AST 14 ALT 15 Alkaline Phosphatase 96 B-Natriuretic Peptide Total Protein 6.4 L Albumin 3.4 L Urine Opiates Screen Urine Fentanyl Screen Ur Barbiturates Screen Ur Phencyclidine Scrn Ur Amphetamines Screen U Benzodiazepines Scrn Urine Cocaine Screen U Marijuana (THC) Screen COVID-19 (PAPO) COVID-19 [employer] Com 11/03/21 11/03/21 05:34 06:00 WBC RBC Hgb Hct MCV MCH MCHC RDW Plt Count MPV Immature Gran % (Auto) Neut % (Auto) Lymph % (Auto) [place] % (Auto) Eos % (Auto) Baso % (Auto) Lymph # (Auto) [place] # (Auto) Eos # (Auto) Baso # (Auto) Abs Immat Gran (auto) Absolute Neuts (auto) Absolute Nucleated RBC Nucleated RBC % (auto) Smear Tech's Comments VBG pH 7.53 H VBG pCO2 39 VBG pO2 41 VBG HCO3 32 H VBG O2 Saturation 71.0 VBG Base Excess 9.5 Sodium Potassium Chloride Carbon Dioxide Anion Gap BUN Creatinine Estim Creat Clear Calc Estimated GFR POC Glucose 181 H Random Glucose Lactic Acid Calcium Phosphorus Magnesium Total Bilirubin AST ALT Alkaline Phosphatase B-Natriuretic Peptide Total Protein Albumin Urine Opiates Screen Urine Fentanyl Screen Ur Barbiturates Screen Ur Phencyclidine Scrn Ur Amphetamines Screen U Benzodiazepines Scrn Urine Cocaine Screen U Marijuana (THC) Screen COVID-19 (PAPO) COVID-19 Clin Com Progress Note: A&P Assessment and plan (1) Aspiration into airway: Status: Acute (2) Acute respiratory failure: Status: Acute (3) COPD (chronic obstructive pulmonary disease): Status: Acute (4) Diabetes mellitus: Status: Acute (5) Congestive heart failure: Status: Acute (6) Essential hypertension: Status: Acute (7) Morbid obesity: Status: Acute (8) Opioid dependence: Status: Acute Plan Assessment: 51-year-old lady with underlying chronic hypoxic and hypercapnic respiratory failure secondary to asthma/COPD overlap syndrome and obesity admitted with worsening hypoxia likely secondary to pulmonary aspiration on the background of nausea and vomiting, likely secondary to ileus from underlying opioids. Plan: Neuro: No acute issues. Cardiac: Mild exacerbation of underlying chronic diastolic congestive heart failure, improving with diuresis with acetazolamide. Pulmonary: Acute on chronic hypoxic and hypercapnic respiratory failure with underlying asthma/COPD overlap syndrome, likely secondary to pulmonary aspiration on the background of nausea and vomiting, now requiring ventilatory support. Continue to titrate off ventilatory support as tolerated. Renal: No acute issues. Endo: No acute issues. Underlying diabetes mellitus GI: Nausea and vomiting, likely secondary to underlying from opioid dependence. CT abdomen with no evidence of obstruction. ID: Empirically covered for pulmonary aspiration. Cultures are pending. Heme/Onc: No acute issues. Psych: No acute issues. Miscellaneous: No acute issues. Prophylaxis: Heparin, ppi Diet: Nothing by mouth Critical care time spent: 60 minutes Quality Stroke Does the patient have a stroke diagnosis?: No VTE Prior VTE?: No VTE Risk Level:: Medical - moderate - high VTE Device Contraindication: Treatment Not Indicated VTE Drug Contraindication: N/A - Med Ordered
[2021-11-03 11:55] LABS: Glucose, Whole Blood 149 mg/dL (60-115)
--- NOTE | 2021-11-03 16:04 | MHC.CM.PN ---
EMR REVIEWED, PT W/ACUTE HYPERCAPNIAC RESP FAILURE W/MECHAN VENT, CM CONTACTED PT'S DTR/PRIMARY CONTACT HEATHER 12:20PM AT NUMBER ON FILE FOR CM ASSESSMENT D/T VENT. PER HEATHER PT LIVES IN AN APARTMENT ABOVE ONE OF HER DTRS, PT HAS DAILY [employer] H[employer], HOME O2 W/LINCARE, [facility] DAILY FOR METHADONE, [facility] IN [facility]. DME: WALKER, W/C, CPAP, NEBULIZER, HOME O2 PCP: GIOVANNY HAS REQUESTED NAME FROM [facility] VIA [facility] PT NOT COVID VACCINATED PT'S DTR HEATHER REPORTS SHE WOULD LIKE PT HOME W/RESUMP OF SERVICES WHEN STABLE FOR D/C.
[2021-11-03 17:57] LABS: Glucose, Whole Blood 215 mg/dL (60-115)
[2021-11-03] MEDS: Lactulose 20 GM/30 ML SOLUTION OG-TUBE (20:28)
[2021-11-03 23:27] LABS: Glucose, Whole Blood 158 mg/dL (60-115)
[2021-11-04] VITALS (29 sets, daily range): BP systolic 91–170; BP diastolic 46–113; PULSE 94–129; RESP 15–28; TEMP 34.9–38; O2SAT 90–97; BMI 33.6
[2021-11-04] MEDS: Albuterol/Iprat 2.5/0.5MG 3 ML AMPUL.NEB INHALE ×3 (00:55→11:55)
[2021-11-04] MEDS: Heparin Sodium,Porcine 5,000 UNIT/ML VIAL 5000 UNIT SUBCUT ×3 (01:35→17:47)
[2021-11-04] MEDS: Chlorhexidine Gluc Oral Rinse 15 ML MOUTHWASH BUCCAL ×2 (01:35→08:21)
[2021-11-04] MEDS: propofoL 1,000 MG/100 ML VIAL 28.23 MG IVCONT ×3 (02:43→08:31)
[2021-11-04] MEDS: Sodium Phosphate,Mono-Dibasic 133 ML ENEMA PR (04:21)
[2021-11-04] MEDS: fentaNYL citrate/NS 1,000 MCG/100 ML PLAST..BAG 20 MCG IVCONT ×2 (04:38→09:22)
[2021-11-04 05:18] LABS: VBG Base Excess -0.2 mmol/L; VBG HCO3 24 mmol/L (22-26); VBG pCO2 38 mmHg; VBG pO2 52 mmHg
[2021-11-04 05:21] LABS: Glucose, Whole Blood 186 mg/dL (60-115)
[2021-11-04 05:30] LABS: Basophils Percent Auto 0.1 % (0-2); Hematocrit 38.5 % (37.0-47.0); Hemoglobin 12.4 g/dl (12.0-16.0); Imm Gran Abs Auto 0.18 X10*3/uL (0.00-0.03); Lymphocytes Absolute Auto 0.4 X10*3/uL (1.2-4.9); MANUAL DIFF FLAG SCAN; Mean Corpuscular HGB Conc 32.2 g/dl (31.0-35.0); Mean Corpuscular Hemoglobin 29.2 pg (27.0-33.0); Mean Corpuscular Volume 90.8 fL (80.0-98.0); Mean Platelet Volume 9.7 fL (9.4-12.3); Monocytes Absolute Auto 0.6 X10*3/uL (0.1-1.2); Monocytes Percent Auto 3.1 % (2-11); Neutrophils Absolute Auto 17.4 x10*3/uL (2.0-8.3); Neutrophils Percent Auto 93.8 % (45-73); Platelet Count 281 X10*3/uL (160-400); Red Blood Count 4.24 X10*6/uL (4.20-5.50); Red Cell Distribution Width 13.2 % (11.0-16.0); SCAN SMEAR FLAG 1; White Blood Count 18.5 X10*3/uL (4.8-10.8)
[2021-11-04] MEDS: Insulin Lispro 100 UNIT/ML 3 ML VIAL SUBCUT (05:34)
[2021-11-04] MEDS: Piperacillin Sodium/Tazobactam 3.375 GM in 0.9 % Sodium Chloride 50 ML IV ×4 (05:34→23:33)
[2021-11-04] MEDS: Pantoprazole Sodium 40 MG/10 ML VIAL IVPUSH (05:34)
[2021-11-04 05:39] LABS: Venous Blood Gas Refer to POC result
[2021-11-04 05:57] LABS: Albumin Level 3.3 g/dL (3.5-5.0); Anion Gap 17 (12-20); Blood Urea Nitrogen 20 mg/dL (9-16); Calcium 8.9 mg/dL (8.4-10.2); Carbon Dioxide 26 mmol/L (22-29); Chloride 99 mmol/L (96-108); Creatinine Clr Calc Pharmacy 91.2; Estimated Glomerular Filt Rate > 60; Glucose Random 193 mg/dL (60-115); Magnesium 1.9 mg/dL (1.6-2.6); Phosphorus 5.9 mg/dL (2.7-4.5); Potassium 3.4 mmol/L (3.3-5.1); Sodium 139 mmol/L (135-145)
[2021-11-04 06:09] LABS: SLIDE REVIEW VERIFIED
[2021-11-04 08:16] LABS: Glucose, Whole Blood 169 mg/dL (60-115)
[2021-11-04] MEDS: acetaZOLAMIDE sodium 500 MG VIAL 250 MG IVPUSH ×2 (08:21→21:10)
[2021-11-04] MEDS: methADONE HCl 20 MG/2 ML ORAL.CONC 50 MG PO (08:22)
[2021-11-04] MEDS: Insulin Glargine,Hum.rec.anlog 100 UNIT/ML 10 ML VIAL 30 UNIT SUBCUT (08:23)
[2021-11-04] MEDS: Potassium Chloride/H20 40 MEQ/100 ML PIGGYBACK 50 MEQ IV (08:24)
[2021-11-04] MEDS: methylPREDNISolone Sod Succ 125 MG/2 ML VIAL 80 MG IVPUSH (09:23)
--- NOTE | 2021-11-04 10:47 | P.PNCC_ITS ---
Subjective Subjective Date of Service: 11/04/21 Interval History: 51-year-old lady with underlying history of asthma/COPD overlap syndrome, chronic hypercapnia and hypoxia on 2 L of supplemental oxygen, diabetes mellitus, hepatitis-C on treatment, hypertension hypogammaglobulinemia, opioid dependence on methadone admitted on 11/02/2021 with nausea/vomiting, acute hypoxic respiratory failure, likely secondary to an aspiration event, requiring intubation and ventilatory support. Her CT abdomen demonstrated no obstruction. His CT chest showed possible sequela on aspiration. Patient was started on empiric antibiotics and acetazolamide and admitted to the intensive care unit. No events overnight. Extubated this a.m.. Critical Care Time (minutes): 60 Physical Exam Vital Signs: Vital Signs: Last Vital Signs Temp 98.6 F 11/04/21 10:00 Pulse 101 H 11/04/21 10:00 Resp 20 11/04/21 10:00 BP 132/92 H 11/04/21 10:00 Pulse Ox 90 L 11/04/21 10:00 O2 Del Method 11/04/21 10:00 O2 Flow Rate 100 11/02/21 15:40 FiO2 35 11/04/21 10:00 BMI result Body Mass Index 33.6 Const: General: no acute distress, alert and awake Eyes: Sclerae: sclerae normal EOM: EOMs intact bilaterally Neck: Neck: Yes no lymphadenopathy, Yes trachea midline and Yes supple Resp: Effort & Inspection: normal respiratory effort and no respiratory distress Auscultation: crackles ( Bibasilar) Cardio: Rate: tachycardic Rhythm: regular rhythm Heart sounds: no gallops, no murmurs and no rubs GI: Palpation (GI): Soft to palpation and Other GI palpation findings present ( Nontender) Auscultation: normal bowel sounds Extrem: General: No clubbing, No cyanosis and Yes edema ( trace bilateral) Objective Data Labs CBC & Chem 7: 11/04/21 05:04 11/04/21 05:04 Labs: Laboratory Results - last 24 hr 11/03/21 11/03/21 11/03/21 11:51 17:54 23:24 WBC RBC Hgb Hct MCV MCH MCHC RDW Plt Count MPV Immature Gran % (Auto) Neut % (Auto) Lymph % (Auto) [place] % (Auto) Eos % (Auto) Baso % (Auto) Lymph # (Auto) [place] # (Auto) Eos # (Auto) Baso # (Auto) Abs Immat Gran (auto) Absolute Neuts (auto) Absolute Nucleated RBC Nucleated RBC % (auto) Smear Tech's Comments VBG pH VBG pCO2 VBG pO2 VBG HCO3 VBG O2 Saturation VBG Base Excess Sodium Potassium Chloride Carbon Dioxide Anion Gap BUN Creatinine Estim Creat Clear Calc Estimated GFR POC Glucose 149 H 215 H 158 H Random Glucose Calcium Phosphorus Magnesium Albumin 11/04/21 11/04/21 11/04/21 05:04 05:04 05:13 WBC 18.5 H RBC 4.24 Hgb 12.4 Hct 38.5 MCV 90.8 MCH 29.2 MCHC 32.2 RDW 13.2 Plt Count 281 MPV 9.7 Immature Gran % (Auto) 1.0 H Neut % (Auto) 93.8 H Lymph % (Auto) 2.0 L [place] % (Auto) 3.1 Eos % (Auto) 0.0 Baso % (Auto) 0.1 Lymph # (Auto) 0.4 L [place] # (Auto) 0.6 Eos # (Auto) 0.0 Baso # (Auto) 0.0 Abs Immat Gran (auto) 0.18 H Absolute Neuts (auto) 17.4 H Absolute Nucleated RBC 0.000 Nucleated RBC % (auto) 0.0 Smear Tech's Comments VERIFIED VBG pH 7.40 VBG pCO2 38 VBG pO2 52 VBG HCO3 24 VBG O2 Saturation 76.0 VBG Base Excess -0.2 Sodium 139 Potassium 3.4 Chloride 99 Carbon Dioxide 26 Anion Gap 17 BUN 20 H D Creatinine 0.73 Estim Creat Clear Calc 91.2 Estimated GFR > 60 POC Glucose Random Glucose 193 H Calcium 8.9 Phosphorus 5.9 H Magnesium 1.9 Albumin 3.3 L 11/04/21 11/04/21 05:17 08:13 WBC RBC Hgb Hct MCV MCH MCHC RDW Plt Count MPV Immature Gran % (Auto) Neut % (Auto) Lymph % (Auto) [place] % (Auto) Eos % (Auto) Baso % (Auto) Lymph # (Auto) [place] # (Auto) Eos # (Auto) Baso # (Auto) Abs Immat Gran (auto) Absolute Neuts (auto) Absolute Nucleated RBC Nucleated RBC % (auto) Smear Tech's Comments VBG pH VBG pCO2 VBG pO2 VBG HCO3 VBG O2 Saturation VBG Base Excess Sodium Potassium Chloride Carbon Dioxide Anion Gap BUN Creatinine Estim Creat Clear Calc Estimated GFR POC Glucose 186 H 169 H Random Glucose Calcium Phosphorus Magnesium Albumin Microbiology Microbiology Results: Microbiology 11/02/21 16:35 Blood - Venous Blood Culture - Preliminary No growth after 24 hours. 11/02/21 16:35 Blood - Venous Blood Culture - Preliminary No growth after 24 hours. Progress Note: A&P Assessment and plan (1) Opioid dependence: Status: Acute (2) Morbid obesity: Status: Acute (3) Essential hypertension: Status: Acute (4) Diabetes mellitus: Status: Acute (5) Congestive heart failure: Status: Acute (6) COPD (chronic obstructive pulmonary disease): Status: Acute (7) Aspiration into airway: Status: Acute (8) Acute respiratory failure: Status: Acute Plan Assessment: 51-year-old lady with underlying chronic hypoxic and hypercapnic respiratory failure secondary to asthma/COPD overlap syndrome and obesity admitted with worsening hypoxia likely secondary to pulmonary aspiration on the background of nausea and vomiting, likely secondary to ileus from underlying opioids. Plan: Neuro: No acute issues. Cardiac: Mild exacerbation of underlying chronic diastolic congestive heart failure, improving with diuresis with acetazolamide. Pulmonary: Acute on chronic hypoxic and hypercapnic respiratory failure with underlying asthma/COPD overlap syndrome, likely secondary to pulmonary aspiration on the background of nausea and vomiting, initially requiring ventilatory support, extubated this a.m.. Renal: No acute issues. Endo: No acute issues. Underlying diabetes mellitus GI: Nausea and vomiting, likely secondary to underlying ileus from opioid dependence. CT abdomen with no evidence of obstruction. ID: Empirically covered for pulmonary aspiration. Cultures are pending. Heme/Onc: No acute issues. Psych: No acute issues. Miscellaneous: No acute issues. Prophylaxis: Heparin, ppi Diet: Nothing by mouth Critical care time spent: 60 minutes Quality Stroke Does the patient have a stroke diagnosis?: No VTE Prior VTE?: No VTE Risk Level:: Medical - moderate - high VTE Device Contraindication: Treatment Not Indicated VTE Drug Contraindication: N/A - Med Ordered
[2021-11-04 11:57] LABS: Glucose, Whole Blood 135 mg/dL (60-115)
[2021-11-04] MEDS: lisinopriL 40 MG TABLET PO (15:40)
[2021-11-04 15:47] LABS: Glucose, Whole Blood 149 mg/dL (60-115)
--- NOTE | 2021-11-04 15:48 | PC.NURSE ---
At start of shift, patient intubated and on PC settings. Per Dr Geller, plan was to extubate patient. Patients Propofol and Fentanyl titrated off. Patient awake, eyes open, following commands, positive gag/cough reflex. Extubated by RT at 1043. Patient placed on NC at 3L. Patient able to cough. Able to state name and birthday. No complaints of difficulty breathing, respiratory distress. Patient sating 95 on 3L. Oxygen titrated down to 2L NC. Sating now 89%. Oxygen goal is 88-[address] Geller. Patient has no complaints. Call lu in reach. Bed Alarm on and bed in low position. Makes needs known
[2021-11-04 21:01] LABS: Glucose, Whole Blood 128 mg/dL (60-115)
[2021-11-05] VITALS (26 sets, daily range): BP systolic 123–172; BP diastolic 60–123; PULSE 82–124; RESP 10–23; TEMP 36.4–37.5; O2SAT 89–100; BMI 33.3
[2021-11-05] MEDS: Albuterol/Iprat 2.5/0.5MG 3 ML AMPUL.NEB INHALE ×6 (00:25→23:14)
[2021-11-05] MEDS: Heparin Sodium,Porcine 5,000 UNIT/ML VIAL 5000 UNIT SUBCUT ×2 (03:13→10:09)
[2021-11-05 05:17] LABS: MANUAL DIFF FLAG NO
[2021-11-05] MEDS: Piperacillin Sodium/Tazobactam 3.375 GM in 0.9 % Sodium Chloride 50 ML IV ×2 (05:17→12:19)
[2021-11-05 05:21] LABS: Basophils Percent Auto 0.2 % (0-2); Eosinophils Percent Auto 0.1 % (0-4); Hematocrit 41.2 % (37.0-47.0); Hemoglobin 12.9 g/dl (12.0-16.0); Imm Gran Abs Auto 0.09 X10*3/uL (0.00-0.03); Imm Gran Pct Auto 0.5 % (0.0-0.4); Lymphocytes Absolute Auto 1.7 X10*3/uL (1.2-4.9); Lymphocytes Percent Auto 9.5 % (20-40); Mean Corpuscular HGB Conc 31.3 g/dl (31.0-35.0); Mean Corpuscular Hemoglobin 29.5 pg (27.0-33.0); Mean Corpuscular Volume 94.3 fL (80.0-98.0); Mean Platelet Volume 9.5 fL (9.4-12.3); Monocytes Absolute Auto 1.2 X10*3/uL (0.1-1.2); Monocytes Percent Auto 6.8 % (2-11); Neutrophils Absolute Auto 15.1 x10*3/uL (2.0-8.3); Neutrophils Percent Auto 82.9 % (45-73); Platelet Count 273 X10*3/uL (160-400); Red Blood Count 4.37 X10*6/uL (4.20-5.50); Red Cell Distribution Width 13.2 % (11.0-16.0); White Blood Count 18.2 X10*3/uL (4.8-10.8)
[2021-11-05 05:21] LABS: VBG Base Excess 2.2 mmol/L; VBG HCO3 29 mmol/L (22-26); VBG pCO2 52 mmHg; VBG pH 7.34 (7.32-7.43); VBG pO2 41 mmHg
[2021-11-05 05:44] LABS: Albumin Level 3.4 g/dL (3.5-5.0); Anion Gap 14 (12-20); Blood Urea Nitrogen 23 mg/dL (9-16); Calcium 9.1 mg/dL (8.4-10.2); Carbon Dioxide 31 mmol/L (22-29); Chloride 105 mmol/L (96-108); Estimated Glomerular Filt Rate > 60; Glucose Random 83 mg/dL (60-115); Phosphorus 4.2 mg/dL (2.7-4.5); Potassium 3.5 mmol/L (3.3-5.1); Sodium 146 mmol/L (135-145)
[2021-11-05 06:23] LABS: Venous Blood Gas Refer to POC result
[2021-11-05 07:41] LABS: Glucose, Whole Blood 72 mg/dL (60-115)
[2021-11-05] MEDS: methADONE HCl 20 MG/2 ML ORAL.CONC 50 MG PO (08:32)
[2021-11-05] MEDS: lisinopriL 40 MG TABLET PO (08:33)
[2021-11-05] MEDS: acetaZOLAMIDE sodium 500 MG VIAL 250 MG IVPUSH (08:33)
[2021-11-05] MEDS: Potassium Chloride/H20 40 MEQ/100 ML PIGGYBACK 50 MEQ IV (08:33)
[2021-11-05] MEDS: predniSONE 20 MG TABLET 40 MG PO (08:34)
[2021-11-05] MEDS: Insulin Glargine,Hum.rec.anlog 100 UNIT/ML 10 ML VIAL 30 UNIT SUBCUT (10:09)
[2021-11-05 11:31] LABS: Glucose, Whole Blood 105 mg/dL (60-115)
--- NOTE | 2021-11-05 13:43 | P.PNCC_ITS ---
Subjective Subjective Date of Service: 11/05/21 Interval History: Mrs. Radu Larios was admitted to the ICU on Nov 02 with acute respiratory failure. The patient is a 51-year-old lady with PMHx of morbid obesity, asthma/ COPD, tobacco abuse, obesity hypoventilation syndrome, chronic hypercapnic and hypoxemic respiratory failure on 2 L oxygen and nocturnal BiPAP at home, hepatitis C on treatment, hypogammaglobulinemia on IVIG, opioid dependence on methadone, DM, HTN, and HLD.? She has a reported history of congestive heart failure, but I am unable the find any evidence for that in the chart. Echo done on 05/21/21 was technically very limited.? LV cavity size was normal.? LV systolic and diastolic function was not able to be accurately assessed.? Right ventricular cavity size was normal.? The valves were poorly visualized.? The inferior vena cava was poorly visualized.? Echo on 08/21/20 was technically difficult, but what was seen was essentially normal, with no evidence of diastolic dysfxn.? Right ventricle was normal in size and function, IVC was normal, and RVSP was 36mm.? An echo in Mar, 2019 reported normal LV size and fxn, normal diastolic fxn, normal right heart. HISTORY OF PRESENT ILLNESS:? EMS was called to the house on November 02 because of shortness of breath.? She was BIBA to the ED.? She was given Solu-Medrol and DuoNebs EN route to the hospital. In the ED she was initially drowsy but arousable.? She was tachypneic with increased work of breathing.? [place] to be COPD exacerbation.? She was put on BiPAP.? Initial VBG showed 7.43/67/+16.? Chest x-ray showed an increased reticulonodular pattern with no areas of consolidation. ?While in the ED, she then became increasingly somnolent with increased work of breathing, with poor air movement and copious secretions.? She was therefore intubated, and thereafter admitted to the ICU. Post intubation chest and abdom CTs showed no acute findings.? Clinically, there was a question of aspiration, so the patient was on empiric antibiotics.? She was also given Diamox.? A CVL was placed for access. The patient was extubated yesterday.? Been doing well on 3L NC since then.? Overnite she was on her home BiPAP 12//2 Liters, Sat?ing up to 99%.? Currently she?s fully A&O, watching TV on her cell phone.? Breathing easy on 3L, Sat 93- 94%.? Central venous gas this morning showed 7.34/52/+2 (on Diamox).? Heart rate 100, SR, blood pressure 131/81.? Afebrile.? No jugular venous distention with the head of the bed at 30 degrees.? Auscultation of the chest shows a very mild expiratory wheeze with a mild-moderately prolonged expiratory phase. LABORATORY DATA:? Below.? Notably, white count steady at 18.? BUN/-creatinine increased to 23/0.6. IMPRESSION:? 51-year-old lady with PMHx of morbid obesity, asthma/ COPD, tobacco abuse, obesity hypoventilation syndrome, chronic hypercapnic and hypoxemic respiratory failure on 2 L oxygen and nocturnal BiPAP at home. 1. COPD exacerbation.? Still wheezing, still with a prolonged expiratory phase.? I will change her prednisone back to Solu-Medrol 60 mg Q6.? Continue nocturnal BiPAP. 2. Acute hypercarbic respiratory failure.? 2? above.? Resolved. 3. Metabolic alkalosis.? Resolved w Diamox.? Stopped the Diamox today. 4. ID.? No good evidence of aspiration.? No reason for her to be on Zosyn.? I?ll switch her to oral cefuroxime 500 mg bid x 5 days (i.e. doesn?t need IV abx). 5. Leukocytosis.? Assuming this is 2? the rhoids. 6. Opioid dependence on methadone. 7. DM.? On Lantus and SSI.? Restarted her metformin. 8. HTN.? Restarted her Lisinopril. 9. VERONIKA.? Renal indices are mildly elevated.? Likely 2? mild hypovolemia.? I?ll let her auto-rehydrate.? No reason to ply her w IV fluids. 10.? Ileus.? The patient was noted to have? significant amount? gastric? output? from OG tube.? CT of the abdomen didn?t show anything.? Currently not clinically a problem. 11. Restarted her Gabapentin Prophylaxis:? Low risk at this time.? No need for DVT prophylaxis. Time:? . Critical Care Time (minutes): 0 Physical Exam Vital Signs: Vital Signs: Last Vital Signs Temp 99.3 F 11/05/21 13:00 Pulse 108 H 11/05/21 13:00 Resp 14 11/05/21 13:00 BP 146/91 H 11/05/21 13:00 Pulse Ox 92 11/05/21 13:00 O2 Del Method 11/05/21 13:00 O2 Flow Rate 3 11/05/21 13:00 FiO2 35 11/04/21 10:00 BMI result Body Mass Index 33.3 Objective Data Labs CBC & Chem 7: 11/05/21 05:10 11/05/21 05:10 Labs: Laboratory Results - last 24 hr 11/04/21 11/04/21 11/05/21 15:43 20:58 05:10 WBC 18.2 H RBC 4.37 Hgb 12.9 Hct 41.2 MCV 94.3 MCH 29.5 MCHC 31.3 RDW 13.2 Plt Count 273 MPV 9.5 Immature Gran % (Auto) 0.5 H Neut % (Auto) 82.9 H Lymph % (Auto) 9.5 L [place] % (Auto) 6.8 Eos % (Auto) 0.1 Baso % (Auto) 0.2 Lymph # (Auto) 1.7 [place] # (Auto) 1.2 Eos # (Auto) 0.0 Baso # (Auto) 0.0 Abs Immat Gran (auto) 0.09 H Absolute Neuts (auto) 15.1 H Absolute Nucleated RBC 0.000 Nucleated RBC % (auto) 0.0 VBG pH VBG pCO2 VBG pO2 VBG HCO3 VBG O2 Saturation VBG Base Excess Sodium Potassium Chloride Carbon Dioxide Anion Gap BUN Creatinine Estim Creat Clear Calc Estimated GFR POC Glucose 149 H 128 H Random Glucose Calcium Phosphorus Magnesium Albumin 11/05/21 11/05/21 11/05/21 05:10 05:16 07:38 WBC RBC Hgb Hct MCV MCH MCHC RDW Plt Count MPV Immature Gran % (Auto) Neut % (Auto) Lymph % (Auto) [place] % (Auto) Eos % (Auto) Baso % (Auto) Lymph # (Auto) [place] # (Auto) Eos # (Auto) Baso # (Auto) Abs Immat Gran (auto) Absolute Neuts (auto) Absolute Nucleated RBC Nucleated RBC % (auto) VBG pH 7.34 VBG pCO2 52 VBG pO2 41 VBG HCO3 29 H VBG O2 Saturation 61.0 VBG Base Excess 2.2 Sodium 146 H Potassium 3.5 Chloride 105 Carbon Dioxide 31 H Anion Gap 14 BUN 23 H Creatinine 0.64 Estim Creat Clear Calc 104.0 Estimated GFR > 60 POC Glucose 72 Random Glucose 83 Calcium 9.1 Phosphorus 4.2 Magnesium 2.0 Albumin 3.4 L 11/05/21 11:28 WBC RBC Hgb Hct MCV MCH MCHC RDW Plt Count MPV Immature Gran % (Auto) Neut % (Auto) Lymph % (Auto) [place] % (Auto) Eos % (Auto) Baso % (Auto) Lymph # (Auto) [place] # (Auto) Eos # (Auto) Baso # (Auto) Abs Immat Gran (auto) Absolute Neuts (auto) Absolute Nucleated RBC Nucleated RBC % (auto) VBG pH VBG pCO2 VBG pO2 VBG HCO3 VBG O2 Saturation VBG Base Excess Sodium Potassium Chloride Carbon Dioxide Anion Gap BUN Creatinine Estim Creat Clear Calc Estimated GFR POC Glucose 105 Random Glucose Calcium Phosphorus Magnesium Albumin Microbiology Microbiology Results: Microbiology 11/02/21 16:35 Blood - Venous Blood Culture - Preliminary No growth after 48 hours. 11/02/21 16:35 Blood - Venous Blood Culture - Preliminary No growth after 48 hours. Quality Stroke Does the patient have a stroke diagnosis?: No VTE Prior VTE?: No VTE Risk Level:: Medical - moderate - high VTE Device Contraindication: Treatment Not Indicated VTE Drug Contraindication: N/A - Med Ordered
--- NOTE | 2021-11-05 13:58 | PM.EVENT ---
Event Note Date of Service: 11/05/21 Event Note: transferred from ICU to medicine team. Discussed with Dr. Catracho Yousif
[2021-11-05] MEDS: methylPREDNISolone Sod Succ 125 MG/2 ML VIAL 60 MG IVPUSH ×2 (15:19→19:52)
[2021-11-05 16:59] LABS: Glucose, Whole Blood 134 mg/dL (60-115)
--- NOTE | 2021-11-05 17:52 | PC.NURSE ---
1715-report called to [facility] RN 1730-jimenez cath removed per order. 1750-pt transferred in bed with [facility] staff x2. VSS. pt belongings with pt upon transfer
[2021-11-05] MEDS: Gabapentin 300 MG CAPSULE PO (19:52)
[2021-11-05] MEDS: Montelukast Sodium 10 MG TABLET PO (19:52)
[2021-11-05] MEDS: metFORMIN HCl ER 500 MG TAB.ER.24H 1000 MG PO (19:52)
[2021-11-05] MEDS: Atorvastatin Calcium 20 MG TABLET PO (19:52)
[2021-11-05 21:02] LABS: Glucose, Whole Blood 173 mg/dL (60-115)
[2021-11-05] MEDS: Insulin Lispro 100 UNIT/ML 3 ML VIAL SUBCUT (21:29)
[2021-11-06] VITALS (10 sets, daily range): BP systolic 127–155; BP diastolic 75–97; PULSE 85–116; RESP 16–18; TEMP 36.1–36.7; O2SAT 95–100
[2021-11-06] MEDS: methylPREDNISolone Sod Succ 125 MG/2 ML VIAL 60 MG IVPUSH ×4 (00:45→20:52)
[2021-11-06 01:10] LABS: Glucose, Whole Blood 154 mg/dL (60-115)
[2021-11-06] MEDS: Albuterol/Iprat 2.5/0.5MG 3 ML AMPUL.NEB INHALE ×4 (03:13→19:18)
[2021-11-06 06:22] LABS: Glucose, Whole Blood 169 mg/dL (60-115)
[2021-11-06 06:36] LABS: Hematocrit 42.3 % (37.0-47.0); Hemoglobin 13.4 g/dl (12.0-16.0); Mean Corpuscular HGB Conc 31.7 g/dl (31.0-35.0); Mean Corpuscular Hemoglobin 29.2 pg (27.0-33.0); Mean Corpuscular Volume 92.2 fL (80.0-98.0); Mean Platelet Volume 9.5 fL (9.4-12.3); Platelet Count 236 X10*3/uL (160-400); Red Blood Count 4.59 X10*6/uL (4.20-5.50); Red Cell Distribution Width 12.9 % (11.0-16.0)
[2021-11-06 06:43] LABS: Venous Blood Gas Refer to POC result
[2021-11-06 06:44] LABS: VBG Base Excess 1.6 mmol/L; VBG HCO3 27 mmol/L (22-26); VBG pCO2 45 mmHg; VBG pH 7.38 (7.32-7.43); VBG pO2 107 mmHg
[2021-11-06 06:55] LABS: Anion Gap 13 (12-20); Blood Urea Nitrogen 29 mg/dL (9-16); Calcium 9.2 mg/dL (8.4-10.2); Carbon Dioxide 26 mmol/L (22-29); Chloride 105 mmol/L (96-108); Creatinine Clr Calc Pharmacy 112.5; Estimated Glomerular Filt Rate > 60; Glucose Random 177 mg/dL (60-115); Magnesium 1.9 mg/dL (1.6-2.6); Phosphorus 3.9 mg/dL (2.7-4.5); Potassium 4.1 mmol/L (3.3-5.1); Sodium 140 mmol/L (135-145)
[2021-11-06] MEDS: methADONE HCl 20 MG/2 ML ORAL.CONC 50 MG PO (08:42)
[2021-11-06] MEDS: metFORMIN HCl ER 500 MG TAB.ER.24H 1000 MG PO ×2 (08:47→20:53)
[2021-11-06] MEDS: Gabapentin 300 MG CAPSULE PO ×2 (08:47→20:53)
[2021-11-06] MEDS: Loratadine 10 MG TABLET PO (08:47)
[2021-11-06] MEDS: lisinopriL 40 MG TABLET PO (08:50)
[2021-11-06] MEDS: Insulin Glargine,Hum.rec.anlog 100 UNIT/ML 10 ML VIAL 30 UNIT SUBCUT (08:51)
[2021-11-06] MEDS: Insulin Lispro 100 UNIT/ML 3 ML VIAL SUBCUT (08:58)
[2021-11-06 11:16] LABS: Glucose, Whole Blood 126 mg/dL (60-115)
--- NOTE | 2021-11-06 14:03 | P.PNIM_ITS ---
Subjective Subjective Date of Service: 11/06/21 Review of Systems Follow-up ICU transfer Admitted with acute on chronic hypoxic / hypercarbic respiratory failure status post intubation Feeling better today sitting up in bed ambulating, talking Physical Exam Vital Signs: Vital Signs: Last Vital Signs Temp 97.4 F 11/06/21 11:08 Pulse 116 H 11/06/21 11:08 Resp 17 11/06/21 11:08 BP 152/79 H 11/06/21 11:08 Pulse Ox 95 11/06/21 11:08 O2 Del Method 11/06/21 11:08 O2 Flow Rate 2 11/06/21 11:08 FiO2 35 11/04/21 10:00 BMI result Body Mass Index 33.3 Appearing in no acute distress Chronic red and swollen face from steroids lung sounds chronic rhonchi/diminished heart regular rate rhythm, clear S1, S2 positive bowel sounds, abdomen is soft, nontender neuro patient is alert x3, no focal deficits Objective Data Active Medications Albuterol Sulfate (Albuterol Sulfate (0.083%) 2.5 Mg/3 Ml Vial.Neb) 2.5 mg INHALE Q2H PRN PRN Reason: wheezing Albuterol/Ipratropium (Albuterol/Iprat 2.5/0.5mg 3 Ml Ampul.Neb) 3 ml INHALE RQ4H [facility] Last Admin: 11/06/21 08:00 Dose: 3 ml Documented By: MARYSOL Atorvastatin Calcium (Atorvastatin Calcium 20 Mg Tablet) 20 mg PO BEDTIME [facility] Last Admin: 11/05/21 19:52 Dose: 20 mg Documented By: RODRIGO Cefuroxime Axetil (Cefuroxime Axetil 500 Mg Tablet) 500 mg PO Q12H [facility] Stop: 11/10/21 02:01 Last Admin: 11/06/21 00:45 Dose: 500 mg Documented By: GLORIA Gabapentin (Gabapentin 300 Mg Capsule) 300 mg PO BID [facility] Last Admin: 11/06/21 08:47 Dose: 300 mg Documented By: MISTYORRFabiana Hydralazine HCl (Hydralazine Hcl 25 Mg Tablet) 25 mg PO TID [facility]; Protocol Insulin Glargine (Insulin Glargine,Hum.Rec.Anlog 100 Unit/Ml 10 Ml Vial) 30 unit SUBCUT DAILY [facility] Last Admin: 11/06/21 08:51 Dose: 30 unit Documented By: GETACHEW Insulin Human Lispro (Insulin Lispro 100 Unit/Ml 3 Ml Vial) 0 unit SUBCUT QIDACHS [facility]; Protocol Last Admin: 11/06/21 12:50 Dose: Not Given Documented By: GETACHEW Non-Admin Reason: No Insulin Coverage Lisinopril (Lisinopril 40 Mg Tablet) 40 mg PO DAILY [facility]; Protocol Last Admin: 11/06/21 08:50 Dose: 40 mg Documented By: GETACHEW Loratadine (Loratadine 10 Mg Tablet) 10 mg PO DAILY [facility] Last Admin: 11/06/21 08:47 Dose: 10 mg Documented By: GETACHEW Metformin HCl (Metformin Hcl Er 500 Mg Tab.Er.24h) 1,000 mg PO BID [facility] Last Admin: 11/06/21 08:47 Dose: 1,000 mg Documented By: GETACHEW Methadone HCl (Methadone Hcl 20 Mg/2 Ml Oral.Conc) 50 mg PO DAILY [facility] Last Admin: 11/06/21 08:42 Dose: 50 mg Documented By: GETACHEW Methylprednisolone Sodium Succinate (Methylprednisolone Sod Succ 125 Mg/2 Ml Vial) 60 mg IVPUSH Q6H [facility] Last Admin: 11/06/21 08:40 Dose: 60 mg Documented By: GETACHEW Montelukast Sodium (Montelukast Sodium 10 Mg Tablet) 10 mg PO BEDTIME [facility] Last Admin: 11/05/21 19:52 Dose: 10 mg Documented By: RODRIGO Non-Formulary Medication (Glecaprevir-Pibrentasvir [Mavyret]) 3 tab PO DAILY [facility] Sodium Biphosphate/Sodium Phosphate (Sodium Phosphate,[place]-Dibasic 133 Ml Enema) 133 ml [place] ONCE PRN PRN Reason: Constipation Last Admin: 11/04/21 04:21 Dose: 133 ml Documented By: PINICOLETTE Theophylline (Theophylline Anhydrous Er 400 Mg Tab.Er.24h) 800 mg PO DAILY [facility] Last Admin: 11/06/21 08:49 Dose: Not Given Documented By: GETACHEW Non-Admin Reason: Patient Refused Labs CBC & Chem 7: 11/06/21 06:19 11/06/21 06:21 Labs: Laboratory Results - last 24 hr 11/05/21 11/05/21 11/06/21 16:54 20:37 00:59 MCV MCH MCHC RDW Plt Count MPV Absolute Nucleated RBC Nucleated RBC % (auto) VBG pH VBG pCO2 VBG pO2 VBG HCO3 VBG O2 Saturation VBG Base Excess Anion Gap Estim Creat Clear Calc Estimated GFR POC Glucose 134 H 173 H 154 H Random Glucose Calcium Phosphorus Magnesium 11/06/21 11/06/21 11/06/21 06:17 06:19 06:21 MCV 92.2 MCH 29.2 MCHC 31.7 RDW 12.9 Plt Count 236 MPV 9.5 Absolute Nucleated RBC 0.000 Nucleated RBC % (auto) 0.0 VBG pH VBG pCO2 VBG pO2 VBG HCO3 VBG O2 Saturation VBG Base Excess Anion Gap 13 Estim Creat Clear Calc 112.5 Estimated GFR > 60 POC Glucose 169 H Random Glucose 177 H Calcium 9.2 Phosphorus 3.9 Magnesium 1.9 11/06/21 11/06/21 06:33 11:13 MCV MCH MCHC RDW Plt Count MPV Absolute Nucleated RBC Nucleated RBC % (auto) VBG pH 7.38 VBG pCO2 45 VBG pO2 107 VBG HCO3 27 H VBG O2 Saturation 99.0 VBG Base Excess 1.6 Anion Gap Estim Creat Clear Calc Estimated GFR POC Glucose 126 H Random Glucose Calcium Phosphorus Magnesium Assessment and Plan (1) Acute respiratory failure: Status: Acute Plan 51 year old patient transferred to medical floor from ICU last night. She has a history of COPD with chronic hypercarbic and hypoxic respiratory failure on 2 L nasal cannula at home. She is well known to the hospitalist service. due to feeling increased shortness of breath she was brought to the ER and decompensated quite quickly and was subsequently intubated and transferred to the ICU. Acute on chronic hypoxic / hypercarbic respiratory failure secondary to COPD exacerbation Doing much better Started on IV Solu-Medrol nocturnal BiPAP and as needed during the day Continue supplemental oxygen Metabolic alkalosis Resolved with Diamox History of heart failure with preserved ejection fraction No exacerbation Continue diltiazem Opiate dependence Nine methadone Diabetes mellitus Sliding scale, ADA diet, Lantus Hypertension Lisinopril Hepatitis-C Currently on treatment with Mavyret patient noted that she was taken off theophylline due to starting of this medication due to interaction Obesity. BMI 33.4 Discussed the importance of weight management as this may be contributing to worsening of other comorbidities DVT prophylaxis with heparin Attending Dr. Jones Full code Continue hospitalization for treatment of acute on chronic hypoxic / hypercarbic respiratory failure with IV steroids and BiPAP Quality Stroke Does the patient have a stroke diagnosis?: No VTE Prior VTE?: No VTE Risk Level:: Medical - moderate - high VTE Device Contraindication: Treatment Not Indicated VTE Drug Contraindication: N/A - Med Ordered
[2021-11-06] MEDS: hydrALAZINE HCl 25 MG TABLET PO ×2 (16:04→20:53)
[2021-11-06 16:16] LABS: Glucose, Whole Blood 111 mg/dL (60-115)
[2021-11-06 20:46] LABS: Glucose, Whole Blood 132 mg/dL (60-115)
[2021-11-06] MEDS: Montelukast Sodium 10 MG TABLET PO (20:53)
[2021-11-06] MEDS: Atorvastatin Calcium 20 MG TABLET PO (20:53)
[2021-11-06 23:55] LABS: Glucose, Whole Blood 144 mg/dL (60-115)
[2021-11-07] VITALS (14 sets, daily range): BP systolic 114–148; BP diastolic 74–98; PULSE 88–110; RESP 14–20; TEMP 36.1–36.6; O2SAT 93–100
[2021-11-07] MEDS: Albuterol/Iprat 2.5/0.5MG 3 ML AMPUL.NEB INHALE ×6 (00:13→20:42)
[2021-11-07] MEDS: methylPREDNISolone Sod Succ 125 MG/2 ML VIAL 60 MG IVPUSH ×3 (02:17→20:13)
[2021-11-07 06:45] LABS: Anion Gap 17 (12-20); Blood Urea Nitrogen 31 mg/dL (9-16); Calcium 9.2 mg/dL (8.4-10.2); Carbon Dioxide 25 mmol/L (22-29); Chloride 104 mmol/L (96-108); Creatinine Clr Calc Pharmacy 108.8; Estimated Glomerular Filt Rate > 60; Glucose Random 179 mg/dL (60-115); Potassium 4.7 mmol/L (3.3-5.1); Sodium 141 mmol/L (135-145)
[2021-11-07] MEDS: metFORMIN HCl ER 500 MG TAB.ER.24H 1000 MG PO ×2 (08:39→20:12)
[2021-11-07] MEDS: hydrALAZINE HCl 25 MG TABLET PO ×3 (08:39→20:13)
[2021-11-07] MEDS: Gabapentin 300 MG CAPSULE PO ×2 (08:39→20:13)
[2021-11-07] MEDS: Loratadine 10 MG TABLET PO (08:39)
[2021-11-07] MEDS: lisinopriL 40 MG TABLET PO (08:40)
[2021-11-07] MEDS: Insulin Lispro 100 UNIT/ML 3 ML VIAL SUBCUT ×2 (08:40→11:48)
[2021-11-07] MEDS: Insulin Glargine,Hum.rec.anlog 100 UNIT/ML 10 ML VIAL 30 UNIT SUBCUT (08:40)
[2021-11-07] MEDS: methADONE HCl 20 MG/2 ML ORAL.CONC 50 MG PO (08:42)
[2021-11-07 11:48] LABS: Glucose, Whole Blood 162 mg/dL (60-115)
--- NOTE | 2021-11-07 13:05 | MHC.CM.PN ---
per rounds pt expected to dc tomorrow janee notified of dc
--- NOTE | 2021-11-07 13:53 | P.PNIM_ITS ---
Subjective Subjective Date of Service: 11/07/21 Interval History: feeling less short of breath no chest pain or lightheadedness Review of Systems Review of Systems: Yes all other systems are reviewed and are negative Physical Exam Vital Signs: Vital Signs: Last Vital Signs Temp 97.5 F 11/07/21 11:31 Pulse 106 H 11/07/21 11:31 Resp 18 11/07/21 11:31 BP 148/90 H 11/07/21 11:31 Pulse Ox 100 11/07/21 11:31 O2 Del Method 11/07/21 11:31 O2 Flow Rate 2 11/07/21 11:31 FiO2 35 11/04/21 10:00 BMI result Body Mass Index 33.3 Gen: in no acute distress HEENT: sclera anicteric, moist mucus membranes Neck: supple Lungs: diminished bilaterally, scattered expiratory wheezing Heart: regular rate and rhythm, no murmurs Abd: soft, non-tender, non-distended, morbidly obese Ext: no edema Skin: warm/well-perfused Neuro: alert and oriented x3, no focal findings Psych: appropriate affect Objective Data Active Medications Albuterol Sulfate (Albuterol Sulfate (0.083%) 2.5 Mg/3 Ml Vial.Neb) 2.5 mg INHALE Q2H PRN PRN Reason: wheezing Albuterol/Ipratropium (Albuterol/Iprat 2.5/0.5mg 3 Ml Ampul.Neb) 3 ml INHALE RQ4H [facility] Last Admin: 11/07/21 11:30 Dose: 3 ml Documented By: ROSITA Atorvastatin Calcium (Atorvastatin Calcium 20 Mg Tablet) 20 mg PO BEDTIME [facility] Last Admin: 11/06/21 20:53 Dose: 20 mg Documented By: GANESH Cefuroxime Axetil (Cefuroxime Axetil 500 Mg Tablet) 500 mg PO Q12H [facility] Stop: 11/10/21 02:01 Last Admin: 11/07/21 02:17 Dose: 500 mg Documented By: GANESH Gabapentin (Gabapentin 300 Mg Capsule) 300 mg PO BID [facility] Last Admin: 11/07/21 08:39 Dose: 300 mg Documented By: BRITTNEY-RIVLA Hydralazine HCl (Hydralazine Hcl 25 Mg Tablet) 25 mg PO TID [facility]; Protocol Last Admin: 11/07/21 08:39 Dose: 25 mg Documented By: MEMO Comments: bp Insulin Glargine (Insulin Glargine,Hum.Rec.Anlog 100 Unit/Ml 10 Ml Vial) 30 unit SUBCUT DAILY [facility] Last Admin: 11/07/21 08:40 Dose: 30 unit Documented By: MEMO Comments: 30 Insulin Human Lispro (Insulin Lispro 100 Unit/Ml 3 Ml Vial) 0 unit SUBCUT QIDACHS [facility]; Protocol Last Admin: 11/07/21 11:48 Dose: 2 unit Documented By: MEMO Comments: POC-162 Lisinopril (Lisinopril 40 Mg Tablet) 40 mg PO DAILY [facility]; Protocol Last Admin: 11/07/21 08:40 Dose: 40 mg Documented By: MEMO Comments: Loratadine (Loratadine 10 Mg Tablet) 10 mg PO DAILY [facility] Last Admin: 11/07/21 08:39 Dose: 10 mg Documented By: MEMO Metformin HCl (Metformin Hcl Er 500 Mg Tab.Er.24h) 1,000 mg PO BID [facility] Last Admin: 11/07/21 08:39 Dose: 1,000 mg Documented By: MEMO Comments: bp Methadone HCl (Methadone Hcl 20 Mg/2 Ml Oral.Conc) 50 mg PO DAILY [facility] Last Admin: 11/07/21 08:42 Dose: 50 mg Documented By: MEMO Methylprednisolone Sodium Succinate (Methylprednisolone Sod Succ 125 Mg/2 Ml Vial) 60 mg IVPUSH Q12H [facility] Last Admin: 11/07/21 08:47 Dose: Not Given Documented By: MEMO Non-Admin Reason: Previously Administered Montelukast Sodium (Montelukast Sodium 10 Mg Tablet) 10 mg PO BEDTIME [facility] Last Admin: 11/06/21 20:53 Dose: 10 mg Documented By: GANESH Pt Own Med ( Glecaprevir- Pibrentasvir [ Mavyret] 100-40 Mg Tablet) 3 tab PO DAILY [facility] Last Admin: 11/07/21 11:47 Dose: 3 tab Documented By: MEMO Sodium Biphosphate/Sodium Phosphate (Sodium Phosphate,[place]-Dibasic 133 Ml Enema) 133 ml [place] ONCE PRN PRN Reason: Constipation Last Admin: 11/04/21 04:21 Dose: 133 ml Documented By: NEELAM Labs CBC & Chem 7: 11/06/21 06:19 11/07/21 06:03 Labs: Laboratory Results - last 24 hr 11/06/21 11/06/21 11/06/21 16:11 20:42 23:51 Anion Gap Estim Creat Clear Calc Estimated GFR POC Glucose 111 132 H 144 H Random Glucose Calcium 11/07/21 11/07/21 06:03 11:43 Anion Gap 17 Estim Creat Clear Calc 108.8 Estimated GFR > 60 POC Glucose 162 H Random Glucose 179 H Calcium 9.2 Assessment and Plan (1) Acute respiratory failure: Status: Acute Plan hospital d#6 51yo F with COPD + obesity with chronic hypercarbic + hypoxic respiratory failure on 2L O2 via [place] + BiPAP at home, admitted to ICU and intubated for respiratory distress, extubated 11/04 and stepped down to IMC 11/05 # acute/chronic hypoxic/hypercarbic respiratoy failure due to COPD exacerbation - back on home O2 + BiPAP regimen, taper steroids, continue nebs, cefuroxime # metabolic alkalosis - resolved p acetazolamide # chronic HFpEF # HTN - continue diltiazem + lisinopril + hydralazine, no signs of volume overload # opioid use disorder - continue methadone # DM2 - basal/bolus insulin, MTF # chronic HCV - continue Mavyret # obesity - outpt weight mgmt to minimize contribution to other comorbidities # VTE ppx: UFH In my clinical judgment, the patient requires continued hospitalization for the following reasons: respiratory failure Quality Stroke Does the patient have a stroke diagnosis?: No VTE Prior VTE?: No VTE Risk Level:: Medical - moderate - high VTE Device Contraindication: Treatment Not Indicated VTE Drug Contraindication: N/A - Med Ordered
[2021-11-07 16:58] LABS: Glucose, Whole Blood 140 mg/dL (60-115)
[2021-11-07 19:51] LABS: Glucose, Whole Blood 111 mg/dL (60-115)
[2021-11-07] MEDS: Atorvastatin Calcium 20 MG TABLET PO (20:13)
[2021-11-07] MEDS: Montelukast Sodium 10 MG TABLET PO (20:13)
[2021-11-08 04:00] VITALS: BP 121/82; PULSE 89; RESP 20; TEMP 36.6; O2SAT 99
[2021-11-08] MEDS: Albuterol/Iprat 2.5/0.5MG 3 ML AMPUL.NEB INHALE ×4 (05:35→15:18)
[2021-11-08 07:29] VITALS: BP 142/72; PULSE 115; RESP 17; TEMP 36.2; O2SAT 99
[2021-11-08 07:37] VITALS: PULSE 74; RESP 20; O2SAT 98
[2021-11-08 07:54] LABS: Hemoglobin 13.7 g/dl (12.0-16.0); Mean Corpuscular HGB Conc 31.9 g/dl (31.0-35.0); Mean Corpuscular Hemoglobin 29.4 pg (27.0-33.0); Mean Corpuscular Volume 92.3 fL (80.0-98.0); Mean Platelet Volume 9.4 fL (9.4-12.3); Platelet Count 330 X10*3/uL (160-400); Red Blood Count 4.66 X10*6/uL (4.20-5.50); Red Cell Distribution Width 13.1 % (11.0-16.0); White Blood Count 22.3 X10*3/uL (4.8-10.8)
[2021-11-08 08:00] LABS: Glucose, Whole Blood 69 mg/dL (60-115)
[2021-11-08 08:05] LABS: Venous Blood Gas Refer to POC result
[2021-11-08 08:06] LABS: VBG Base Excess 7.4 mmol/L; VBG HCO3 35 mmol/L (22-26); VBG pCO2 61 mmHg; VBG pH 7.36 (7.32-7.43); VBG pO2 52 mmHg
[2021-11-08 08:08] LABS: Anion Gap 15 (12-20); Blood Urea Nitrogen 23 mg/dL (9-16); Calcium 9.5 mg/dL (8.4-10.2); Carbon Dioxide 30 mmol/L (22-29); Chloride 100 mmol/L (96-108); Creatinine Clr Calc Pharmacy 114.4; Estimated Glomerular Filt Rate > 60; Glucose Random 76 mg/dL (60-115); Potassium 4.1 mmol/L (3.3-5.1); Sodium 141 mmol/L (135-145)
[2021-11-08 08:41] LABS: Glucose, Whole Blood 117 mg/dL (60-115)
[2021-11-08 08:41] LABS: Glucose, Whole Blood 75 mg/dL (60-115)
[2021-11-08] MEDS: Loratadine 10 MG TABLET PO (08:47)
[2021-11-08] MEDS: Gabapentin 300 MG CAPSULE PO (08:47)
[2021-11-08] MEDS: hydrALAZINE HCl 25 MG TABLET PO (08:47)
[2021-11-08] MEDS: methylPREDNISolone Sod Succ 125 MG/2 ML VIAL 60 MG IVPUSH (08:47)
[2021-11-08] MEDS: metFORMIN HCl ER 500 MG TAB.ER.24H 1000 MG PO (08:47)
[2021-11-08] MEDS: lisinopriL 40 MG TABLET PO (08:47)
[2021-11-08] MEDS: methADONE HCl 20 MG/2 ML ORAL.CONC 50 MG PO (08:48)
[2021-11-08 09:18] LABS: Procalcitonin 0.02 ng/mL
[2021-11-08 10:53] VITALS: BP 153/89; PULSE 116; RESP 17; TEMP 36.2; O2SAT 98
[2021-11-08 11:06] LABS: Glucose, Whole Blood 92 mg/dL (60-115)
[2021-11-08 11:38] VITALS: PULSE 112; RESP 18; O2SAT 98
--- NOTE | 2021-11-08 13:52 | P.DS_ITS ---
DS: Providers Provider Date of Service: 11/08/21 Date of admission: 11/02/21 16:10 Date of discharge: 11/08/21 Primary care physician: Kelli Benavides MD DS: Diagnosis Discharge Diagnosis (1) Acute on chronic respiratory failure with hypoxia and hypercapnia: Status: Acute (2) COPD exacerbation: Status: Acute DS: Summary Hospital Course Hospital Course: from admission H+P by braille teacher Shaniqua Sabillon, 11/02/21: The patient is a 51-year-old woman with a past medical history of asthma COPD overlap syndrome, chronic? hypercarbic and hypoxic respiratory failure currently on 2l via [place] home oxygen,? diabetes mellitus, hypertension, hyperlipidemia, tobacco use, and Hypogammaglobulinemia on IVIG,? opioid dependence on methadone who was recently seen in the emergency room? yesterday for? nausea and vomiting that improved with PO zofran.? Today,? patient arrived at the emergency room via EMS with complaints of increased shortness of breath.? She received? 25 of Solu- Medrol and 2 DuoNebs EN route to hospital.? In the emergency room the patient progressively? decompensated,? was in respiratory distress with significant amount of secretions requiring emergent? intubation? for airway protection.? ?Laboratory data significant for WBC? 14.4, chloride 90 and serum bicarb? 35 ?Vbgs as following? 7.43/67/198/45 ?ED course:? she received albuterol 10 mg,? nasal naloxone 4 mg x2,? and Zosyn. This 51yo F with COPD + obesity with chronic hypercarbic + hypoxic respiratory failure on 2L O2 via [place] + BiPAP at home was initially admitted to ICU and intubated for respiratory distress. She was treated with steroids and antibiotics, extubated on 11/04 and stepped down to the IMC 11/05. She was weaned down to home O2 and BiPAP and steroids were taper. Metabolic alkalosis resolved after acetazolamide. No signs of volume overload. She was discharged home on a prednisone taper with resumption of VNA services and instructed to follow up with Primary Care and Pulmonology within 1-2 weeks. Time Spent with Patient Time attestation: Total time spent providing and/or coordinating discharge services: Discharge coordination time: Greater than 30 minutes Quality: Safe Use of Opioids Does Pt have an Active Cancer Diagnosis on the Problem List?: No Quality: Stroke Does the patient have a stroke diagnosis?: No Physical Exam Vital Signs: Vital Signs: Last Vital Signs Temp 97.2 F 11/08/21 10:53 Pulse 112 H 11/08/21 11:38 Resp 18 11/08/21 11:38 BP 153/89 H 11/08/21 10:53 Pulse Ox 98 11/08/21 10:53 O2 Del Method 11/08/21 10:53 O2 Flow Rate 3 11/08/21 10:53 FiO2 35 11/04/21 10:00 BMI result Body Mass Index 33.3 Gen: in no acute distress HEENT: sclera anicteric, moist mucus membranes Neck: supple Lungs: diminished bilaterally, scattered expiratory wheezing Heart: regular rate and rhythm, no murmurs Abd: soft, non-tender, non-distended, obese Ext: no edema Skin: warm/well-perfused Neuro: alert and oriented x3, no focal findings Psych: appropriate affect DS: Data Data Completed and Pending Completed studies during hospitalization [Text1]: Laboratory Results WBC 22.3 X10*3/uL (4.8-10.8) H 11/08/21 07:39 RBC 4.66 X10*6/uL (4.20-5.50) 11/08/21 07:39 Hgb 13.7 g/dl (12.0-16.0) 11/08/21 07:39 Hct 43.0 % (37.0-47.0) 11/08/21 07:39 MCV 92.3 fL (80.0-98.0) 11/08/21 07:39 MCH 29.4 pg (27.0-33.0) 11/08/21 07:39 MCHC 31.9 g/dl (31.0-35.0) 11/08/21 07:39 RDW 13.1 % (11.0-16.0) 11/08/21 07:39 Plt Count 330 X10*3/uL (160-400) D 11/08/21 07:39 MPV 9.4 fL (9.4-12.3) 11/08/21 07:39 Immature Gran % (Auto) 0.5 % (0.0-0.4) H 11/05/21 05:10 Neut % (Auto) 82.9 % (45-73) H 11/05/21 05:10 Lymph % (Auto) 9.5 % (20-40) L 11/05/21 05:10 Payne % (Auto) 6.8 % (2-11) 11/05/21 05:10 Eos % (Auto) 0.1 % (0-4) 11/05/21 05:10 Baso % (Auto) 0.2 % (0-2) 11/05/21 05:10 Lymph # (Auto) 1.7 X10*3/uL (1.2-4.9) 11/05/21 05:10 Payne # (Auto) 1.2 X10*3/uL (0.1-1.2) 11/05/21 05:10 Eos # (Auto) 0.0 X10*3/uL (0.0-0.4) 11/05/21 05:10 Baso # (Auto) 0.0 X10*3/uL (0.0-0.2) 11/05/21 05:10 Abs Immat Gran (auto) 0.09 X10*3/uL (0.00-0.03) H 11/05/21 05:10 Absolute Neuts (auto) 15.1 x10*3/uL (2.0-8.3) H 11/05/21 05:10 Absolute Nucleated RBC 0.000 X10*3/uL (0.0-0.012) 11/08/21 07:39 Nucleated RBC % (auto) 0.0 /100WBC (0.0-0.2) 11/08/21 07:39 Smear Tech's Comments VERIFIED 11/04/21 05:04 VBG pH 7.36 (7.32-7.43) 11/08/21 07:52 VBG pCO2 61 mmHg 11/08/21 07:52 VBG pO2 52 mmHg 11/08/21 07:52 VBG HCO3 35 mmol/L (22-26) H 11/08/21 07:52 VBG O2 Saturation 77.0 % 11/08/21 07:52 VBG Base Excess 7.4 mmol/L 11/08/21 07:52 Sodium 141 mmol/L (135-145) 11/08/21 07:39 Potassium 4.1 mmol/L (3.3-5.1) 11/08/21 07:39 Chloride 100 mmol/L (96-108) 11/08/21 07:39 Carbon Dioxide 30 mmol/L (22-29) H 11/08/21 07:39 Anion Gap 15 (12-20) 11/08/21 07:39 BUN 23 mg/dL (9-16) H 11/08/21 07:39 Creatinine 0.58 mg/dL (0.5-1.4) 11/08/21 07:39 Estim Creat Clear Calc 114.4 11/08/21 07:39 Estimated GFR > 60 11/08/21 07:39 POC Glucose 92 mg/dL (60-115) 11/08/21 11:01 Random Glucose 76 mg/dL (60-115) 11/08/21 07:39 Lactic Acid 1.9 mmol/L (0.5-2.0) 11/02/21 20:48 Calcium 9.5 mg/dL (8.4-10.2) 11/08/21 07:39 Phosphorus 3.9 mg/dL (2.7-4.5) 11/06/21 06:21 Magnesium 1.9 mg/dL (1.6-2.6) 11/06/21 06:21 Total Bilirubin 0.5 mg/dL (0.0-1.0) 11/03/21 05:15 AST 14 U/L (5-31) 11/03/21 05:15 ALT 15 U/L (0-31) 11/03/21 05:15 Alkaline Phosphatase 96 U/L (39-117) 11/03/21 05:15 B-Natriuretic Peptide < 10 pg/mL (<100) 11/02/21 14:42 Total Protein 6.4 g/dL (6.5-8.0) L 11/03/21 05:15 Albumin 3.4 g/dL (3.5-5.0) L 11/05/21 05:10 Procalcitonin 0.02 ng/mL 11/08/21 07:39 Urine Opiates Screen Not Detected (Not Detect) 11/02/21 17:18 Urine Fentanyl Screen Not Detected (Not Detect) 11/02/21 17:18 Ur Barbiturates Screen Not Detected (Not Detect) 11/02/21 17:18 Ur Phencyclidine Scrn Not Detected (Not Detect) 11/02/21 17:18 Ur Amphetamines Screen Not Detected (Not Detect) 11/02/21 17:18 U Benzodiazepines Scrn Not Detected (Not Detect) 11/02/21 17:18 Urine Cocaine Screen Not Detected (Not Detect) 11/02/21 17:18 U Marijuana (THC) Screen Not Detected (Not Detect) 11/02/21 17:18 COVID-19 (PAPO) Negative (Negative) 11/02/21 16:35 COVID-19 Clin Com See Note 11/02/21 16:35 Impressions Abdomen/Pelvis CT 11/02/21 18:22 IMPRESSION: 1. Patient is intubated. Mild to moderate underlying emphysema. Moderate central and dependent peribronchial wall thickening with mucous plugging of multiple segmental/subsegmental segmental lower lobe bronchi. Findings may be seen with nonspecific small airways disease or aspiration event. No overt focal airspace consolidation. 2. No evidence of bowel obstruction. 3. No acute abnormalities of the abdomen/pelvis. 4. Moderate multilevel degenerative spondyloarthropathy of the lumbar spine. On this limited exam without intrathecal contrast, there appear to be moderate to severe spinal canal stenoses from L3-S1. Chest CT 11/02/21 18:22 IMPRESSION: 1. Patient is intubated. Mild to moderate underlying emphysema. Moderate central and dependent peribronchial wall thickening with mucous plugging of multiple segmental/subsegmental segmental lower lobe bronchi. Findings may be seen with nonspecific small airways disease or aspiration event. No overt focal airspace consolidation. 2. No evidence of bowel obstruction. 3. No acute abnormalities of the abdomen/pelvis. 4. Moderate multilevel degenerative spondyloarthropathy of the lumbar spine. On this limited exam without intrathecal contrast, there appear to be moderate to severe spinal canal stenoses from L3-S1. Chest X-Ray 11/02/21 20:00 IMPRESSION: Right TLC with tip terminating at the cavoatrial junction. No acute cardiopulmonary process. Discharge Plan Discharge Patient Disposition: Home Health Service Discharge Diagnosis: acute/chronic hypoxic/hypercarbic respiratoy failure due to COPD exacerbation Referrals: [facility] [Outside] - 1 Week Allan Brito MD [Physician] - 1 Week Kelli Benavides MD [Primary Care Provider] - 1 Week Discharge Medications: New prednisone 10 mg tablet See Rx Instructions .ROUTE .COMPLEX Qty: 40 0RF Rx Instructions: 40 mg daily x 4 days, then 30 mg daily x 4 days, then 20 mg daily x 4 days, then 10 mg daily x 4 days Continued Spiriva with HandiHaler 18 mcg capsule, w/inhalation device 1 cap inhalation DAILY Qty: 30 11RF gabapentin 300 mg capsule 300 mg PO BID 30 Days Qty: 60 3RF ipratropium-albuterol 0.5 mg-3 mg(2.5 mg base)/3 mL solution for nebulization 3 ml PO Q4H PRN (Reason: for wheezing) Qty: 540 6RF diclofenac potassium 50 mg tablet 50 mg PO BID 30 Days Qty: 60 0RF prednisone 10 mg tablet See Rx Instructions PO .COMPLEX Qty: 90 3RF Rx Instructions: Take 2 tablets by mouth every morning, take 1 tablet every evening. diltiazem HCl [Tiadylt ER] 360 mg capsule,extended release 24 hr 1 cap PO DAILY rosuvastatin 5 mg tablet 1 tab PO BEDTIME Daliresp 500 mcg tablet 1 tab PO DAILY insulin lispro [Humalog U-100 Insulin] 100 unit/mL solution See Protocol subcut TIDAC Protocol: Insulin Correction Scale Less than or equal to 110 ---- Give (units): 0 111 to 150 Give (units): 0 151 to 200 Give (units): 2 201 to 250 Give (units): 4 251 to 300 Give (units): 6 301 to 350 Give (units): 8 Greater than 350 Give (units): 10 Call MD if Blood Glucose > : 350 metformin 500 mg tablet extended release 24 hr 2 tab PO BID hydralazine 25 mg tablet 1 tab PO TID insulin lispro 100 unit/mL solution 4 unit subcut TIDAC Mavyret 100-40 mg tablet 3 tab PO DAILY omeprazole 40 mg capsule,delayed release(DR/EC) 40 mg PO DAILY@0630 methadone 10 mg/mL Concentrate 49 mg PO DAILY ergocalciferol (vitamin D2) 1,250 mcg (50,000 unit) capsule 1,250 mcg PO QWEEK insulin glargine [Lantus U-100 Insulin] 100 unit/mL solution 45 unit subcut BEDTIME lisinopril 40 mg tablet 1 tab PO DAILY ondansetron 4 mg tablet,disintegrating 4 mg PO Q6H PRN (Reason: nausea and vomiting) Qty: 10 0RF montelukast 10 mg tablet 10 mg PO BEDTIME albuterol sulfate [ProAir HFA] 90 mcg/actuation HFA aerosol inhaler 2 puff inhalation Q4H PRN (Reason: Shortness Of Breath Or Wheezing) loratadine [Claritin] 10 mg tablet 10 mg PO DAILY Brovana 15 mcg/2 mL solution for nebulization 2 ml inhalation Q12H 30 Days Qty: 120 11RF budesonide 0.5 mg/2 mL suspension for nebulization 0.5 mg inhalation BID Qty: 120 11RF Discontinued Arnoldo-24 400 mg capsule,extended release 24hr 2 cap PO DAILY Discharge Orders: Discharge Order (Routine); Ordered 11/08/21 Ordered By: Paige Steele Diet: Diabetic diet Activity on Discharge: As tolerated Stand Alone Forms: Patient Portal Discharge page Care Plan Goals: lung health Health Concerns: acute/chronic hypoxic/hypercarbic respiratoy failure due to COPD exacerbation Plan of Treatment: prednisone as follows: 40 mg daily x 4 days, then 30 mg daily x 3 days, then 20 mg daily x 4 days, then 10 mg daily x 4 days continue home oxygen and BiPAP Please follow up with your primary care doctor within 1 week. Follow up with your home demonstration agent within 2 weeks. Please return to the hospital if you experience recurrent or worsening symptoms, Assessment: See Discharge Summary
--- NOTE | 2021-11-08 13:58 | MHC.CM.PN ---
Patient has been medically cleared for dc to home today, with services. Patient was active with Nancy GARCIA, who has been made aware of today's dc.
[2021-11-08 15:20] VITALS: PULSE 112; RESP 20; O2SAT 96
== END 2021-11-08 16:00 | disposition home health service (06) | DRG 140 ==
LOC: HO.ED 16:07 → HO.EDOVER 16:27 → HO.ICU 16:40 → HO.IMC 11-05 16:32
PROVIDERS: Anesthesiology; Nurse Practitioner Acute Care; Physician Assistant; Registered Nurse Community Health; Admitting Provider Internal Medicine Pulmonary Disease; Emergency Provider Student in an Organized Health Care Education/Training Program; PCP Family Medicine; Visit Provider Family Medicine
DX: J44.1 Chronic obstructive pulmonary disease with (acute) exacerbation (principal); J96.21 Acute and chronic respiratory failure with hypoxia; I50.33 Acute on chronic diastolic (congestive) heart failure; N17.9 Acute kidney failure, unspecified; D80.1 Nonfamilial hypogammaglobulinemia; K56.7 Ileus, unspecified; E87.3 Alkalosis; E11.9 Type 2 diabetes mellitus without complications; D72.829 Elevated white blood cell count, unspecified; B19.20 Unspecified viral hepatitis C without hepatic coma; E66.01 Morbid (severe) obesity due to excess calories; I11.0 Hypertensive heart disease with heart failure; E78.5 Hyperlipidemia, unspecified; F11.20 Opioid dependence, uncomplicated; Z99.81 Dependence on supplemental oxygen; J96.22 Acute and chronic respiratory failure with hypercapnia; Z20.822 Contact with and (suspected) exposure to COVID-19; Z98.51 Tubal ligation status; Z68.33 Body mass index [BMI] 33.0-33.9, adult; Z79.4 Long term (current) use of insulin; Z79.52 Long term (current) use of systemic steroids; Z79.84 Long term (current) use of oral hypoglycemic drugs; Z79.899 Other long term (current) drug therapy
CPT/HCPCS: 36415; 71045; 71250; 74176; 80048; 80053; 80307; 82040; 82803; 82947; 83605; 83735; 83880; 84100; 84145; 85025; 85027; 87040; 87635; 93005; 94002; 94003; 94640; 94660; 94799; 96374; 96375; 97162; 99285; C1758; J2543; J2930; J3010

== ENCOUNTER 2021-11-27 11:04 | Outpatient (REF) | payer MEDICAID, SELFPAY | END 2021-11-27 11:05 | disposition home or self-care (01) | LOC: HO.MDS 11:04 | PROVIDERS: Visit Provider Hospitalist | DX: D80.1 Nonfamilial hypogammaglobulinemia (principal) | CPT/HCPCS: 96365; 96366; J1569 ==

== ENCOUNTER 2021-11-28 00:56 | Emergency (ER) | payer MEDICAID, SELFPAY ==
--- NOTE | 2021-11-28 01:02 | ED_ITS ---
HPI - SOB/Dyspnea General Chief Complaint: Dyspnea Stated Complaint: Asthma /Copd Time Seen by Provider: 11/28/21 01:01 Source: patient Mode of arrival: ambulatory Limitations: no limitations History of Present Illness HPI Narrative: Patient is 51 years old with history of asthma/COPD overlap syndrome, chronic hypercapnia carb ache and hypoxic respiratory failure on home oxygen, CHITO on CPAP at night on chronic prednisone treatment currently taking 20 mg daily comes here for increased shortness of breath since yesterday no fever no chills has dry cough mostly denies any chest pain when EMS arrived patient was saturating 88% on 4 L oxygen at home was given DuoNeb treatment and albuterol treatment along with IV Solu-Medrol 125 mg on arrival patient was saturating 95% on 3 L Related Data Home Medications Medication Instructions Recorded Confirmed albuterol sulfate 90 mcg/actuation 2 puff inhalation Q4H PRN 12/30/19 11/02/21 aerosol inhaler (ProAir HFA) Shortness Of Breath Or Wheezing loratadine 10 mg tablet (Claritin) 10 mg PO DAILY 12/30/19 11/02/21 montelukast 10 mg tablet 10 mg PO BEDTIME 12/30/19 11/02/21 diltiazem HCl 360 mg capsule,24 1 cap PO DAILY 11/16/20 11/02/21 hr,extended release (Tiadylt ER) roflumilast 500 mcg tablet 1 tab PO DAILY 11/16/20 11/02/21 (Daliresp) rosuvastatin 5 mg tablet 1 tab PO BEDTIME 11/16/20 11/02/21 insulin lispro 100 unit/mL See Protocol subcut TIDAC 12/14/20 11/02/21 subcutaneous solution (Humalog U-100 Insulin) metformin 500 mg tablet,extended 2 tab PO BID 05/18/21 11/02/21 release 24 hr ergocalciferol (vitamin D2) 1,250 1,250 mcg PO QWEEK 06/06/21 11/02/21 mcg (50,000 unit) capsule methadone 10 mg/mL oral concentrate 49 mg PO DAILY 06/06/21 09/24/21 insulin glargine 100 unit/mL 45 unit subcut BEDTIME 06/07/21 11/02/21 subcutaneous solution (Lantus U-100 Insulin) lisinopril 40 mg tablet 1 tab PO DAILY 07/30/21 11/02/21 glecaprevir 100 mg-pibrentasvir 40 3 tab PO DAILY 11/02/21 11/02/21 mg tablet (Mavyret) hydralazine 25 mg tablet 1 tab PO TID 11/02/21 11/02/21 insulin lispro 100 unit/mL 4 unit subcut TIDAC 11/02/21 11/02/21 subcutaneous solution omeprazole 40 mg capsule,delayed 40 mg PO DAILY@0630 11/02/21 11/02/21 release Previous Rx's Medication Instructions Recorded tiotropium bromide 18 mcg capsule 1 cap inhalation DAILY #30 ea 06/25/21 with inhalation device (Spiriva with HandiHaler) arformoterol 15 mcg/2 mL solution 2 ml inhalation Q12H 30 days #120 07/24/21 for nebulization (Brovana) mL budesonide 0.5 mg/2 mL suspension 0.5 mg (2 mL) inhalation BID #120 07/24/21 for nebulization mL gabapentin 300 mg capsule 300 mg PO BID 30 days #60 caps 09/19/21 diclofenac potassium 50 mg tablet 50 mg PO BID 30 days #60 tabs 10/08/21 prednisone 10 mg tablet See Rx Instructions PO .COMPLEX 10/15/21 #90 tabs ondansetron 4 mg disintegrating 4 mg PO Q6H PRN nausea and 11/01/21 tablet vomiting #10 tabs prednisone 10 mg tablet See Rx Instructions .Route 11/08/21 .COMPLEX #40 tabs ipratropium 0.5 mg-albuterol 3 mg 3 ml PO Q4H PRN for wheezing #540 11/26/21 (2.5 mg base)/3 mL nebulization mL soln Allergies Allergy/AdvReac Type Severity Reaction Status Date / Time No Known Allergies Allergy Verified 10/04/21 11:30 [No Known Allergies*] Review of Systems Review of Systems: Yes all other systems are reviewed and are negative PMFSH Past Medical History Medical History Abdominal pain Abnormal chest x-ray Acute respiratory failure Aspiration into airway Asthma-COPD overlap syndrome Chronic respiratory failure Chronic respiratory failure Congestive heart failure COPD (chronic obstructive pulmonary disease) COPD exacerbation Diabetes mellitus Essential hypertension Hyperlipidemia, unspecified Hypertensive cardiovascular disease Hypogammaglobulinemia Leukocytosis Limb swelling Morbid obesity Opioid dependence Poor dentition Pulmonary congestion Pulmonary nodule Rib fractures Status asthmaticus with COPD (chronic obstructive pulmonary disease) Tobacco abuse Type 2 diabetes mellitus Type 2 diabetes mellitus with unspecified complications Vomiting Surgical History H/O tubal ligation Family History Family History Father Diabetes Other Asthma Social History Social History Household Members: Unknown / Unable to assess Household Members Other:: 3 Housing: Unknown / Unable to assess Do you presently have visiting nurse or other home services: No Unable to assess alcohol history related to: Unknown Alcohol intake: never Patient Tobacco Use Status: Tobacco use Unknown Tobacco use type: Cigarette Cigarettes Per Day: 1 Years Smoked: 35 e-Cigarette/Vaping Use: Currently Using Second Hand Smoke Exposure: No Substance Use Type: Opiates Advance Directives: Yes Advance Directives on File: Yes Advance Directives Date on File: 06/12/21 service: No Current occupational status: disabled Physical Exam Vital Signs: Vital Signs: Last Vital Signs Temp 97.9 F 11/28/21 02:52 Pulse 91 11/28/21 03:18 Resp 17 11/28/21 03:18 BP 149/68 H 11/28/21 02:52 Pulse Ox 96 11/28/21 02:52 O2 Del Method 11/28/21 02:52 O2 Flow Rate 3 11/28/21 02:52 Oxygen Flow Rate 2 11/28/21 01:03 BMI result Body Mass Index 40.4 Appearance: Alert. Oriented X3. In mild respiratory distress Eyes: PERRLA, No Nystagmus ENT: Pharynx normal. Oral Mucosa moist Neck: Normal inspection. Neck supple. CVS: Normal heart rate and rhythm. Pulses normal. Respiratory: Mild respiratory distress. Equal air entry bilateral, bilateral prolonged expiration with wheezing no crackles Abdomen: Soft and nontender. Bowel sounds are present Skin: Skin warm and dry. Normal skin color. Normal skin turgor. Extremities: Trace lower extremity edema. No calf tenderness Neuro: Oriented X 3. No motor deficit. MDM - SOB/Dyspnea MDM Narrative Medical decision making narrative: Patient with asthma/COPD overlap on steroids has CPAP machine and oxygen at home capnography was 50 to 60 during stay in the ER patient feel comfortable saturating 95% on 2 L will discharge patient home Lab Data Attestation: I reviewed the patient's lab results. Labs: Lab Results 11/28/21 Range/Units 01:17 COVID-19 (PAPO) Negative (Negative) COVID-19 Clin Com See Note Discharge Plan Discharge Clinical Impression: Asthma with exacerbation Patient Disposition: Home, Self-Care Instructions: Asthma (ED) Additional Instructions: Continue to use your nebulizing treatment every 4-6 hours Continue to use your prednisone 20 mg daily Use oxygen and CPAP machine at home Follow-up with PCP/manager of disaster recovery Prescriptions: No Action Spiriva with HandiHaler 18 mcg capsule, w/inhalation device 1 cap inhalation DAILY Qty: 30 11RF gabapentin 300 mg capsule 300 mg PO BID 30 Days Qty: 60 3RF diclofenac potassium 50 mg tablet 50 mg PO BID 30 Days Qty: 60 0RF prednisone 10 mg tablet See Rx Instructions PO .COMPLEX Qty: 90 3RF Rx Instructions: Take 2 tablets by mouth every morning, take 1 tablet every evening. ipratropium-albuterol 0.5 mg-3 mg(2.5 mg base)/3 mL solution for nebulization 3 ml PO Q4H PRN (Reason: for wheezing) Qty: 540 6RF diltiazem HCl [Tiadylt ER] 360 mg capsule,extended release 24 hr 1 cap PO DAILY rosuvastatin 5 mg tablet 1 tab PO BEDTIME Daliresp 500 mcg tablet 1 tab PO DAILY insulin lispro [Humalog U-100 Insulin] 100 unit/mL solution See Protocol subcut TIDA Protocol: Insulin Correction Scale Less than or equal to 110 ---- Give (units): 0 111 to 150 Give (units): 0 151 to 200 Give (units): 2 201 to 250 Give (units): 4 251 to 300 Give (units): 6 301 to 350 Give (units): 8 Greater than 350 Give (units): 10 Call MD if Blood Glucose > : 350 metformin 500 mg tablet extended release 24 hr 2 tab PO BID hydralazine 25 mg tablet 1 tab PO TID insulin lispro 100 unit/mL solution 4 unit subcut TIDAC Mavyret 100-40 mg tablet 3 tab PO DAILY omeprazole 40 mg capsule,delayed release(DR/EC) 40 mg PO DAILY@0630 prednisone 10 mg tablet See Rx Instructions .ROUTE .COMPLEX Qty: 40 0RF Rx Instructions: 40 mg daily x 4 days, then 30 mg daily x 4 days, then 20 mg daily x 4 days, then 10 mg daily x 4 days methadone 10 mg/mL Concentrate 49 mg PO DAILY ergocalciferol (vitamin D2) 1,250 mcg (50,000 unit) capsule 1,250 mcg PO QWEEK insulin glargine [Lantus U-100 Insulin] 100 unit/mL solution 45 unit subcut BEDTIME lisinopril 40 mg tablet 1 tab PO DAILY ondansetron 4 mg tablet,disintegrating 4 mg PO Q6H PRN (Reason: nausea and vomiting) Qty: 10 0RF montelukast 10 mg tablet 10 mg PO BEDTIME albuterol sulfate [ProAir HFA] 90 mcg/actuation HFA aerosol inhaler 2 puff inhalation Q4H PRN (Reason: Shortness Of Breath Or Wheezing) loratadine [Claritin] 10 mg tablet 10 mg PO DAILY Brovana 15 mcg/2 mL solution for nebulization 2 ml inhalation Q12H 30 Days Qty: 120 11RF budesonide 0.5 mg/2 mL suspension for nebulization 0.5 mg inhalation BID Qty: 120 11RF
[2021-11-28 01:03] VITALS: BP 149/68; BP 178/100; PULSE 102; PULSE 95; RESP 16; TEMP 37; O2SAT 97; O2SAT 98; BMI 40.4
[2021-11-28] MEDS: Magnesium Sulfate/H2O 2 GM/50 ML PIGGYBACK IV (01:25)
[2021-11-28 01:43] LABS: COVID-19 Test Negative (Negative); IDNOW Serial# 55D5AD1C
[2021-11-28 02:52] VITALS: BP 149/68; PULSE 104; RESP 18; TEMP 36.6; O2SAT 96
[2021-11-28 03:18] VITALS: PULSE 91; RESP 17; O2SAT 93
[2021-11-28] MEDS: Albuterol Sulfate 2.5 MG, Albuterol Sulfate (0.083%) 2.5 MG 5 MG INHALE (03:18)
--- NOTE | 2021-11-28 05:42 | PC.NURSE ---
I assumed nursing care of Anju at 0400. since hat time she has been discharged awaiting transport from [facility]. She departed at this time with family in a private vehicle with home O2.
== END 2021-11-28 05:38 | disposition home or self-care (01) ==
PROVIDERS: Emergency Provider Internal Medicine
DX: J45.901 Unspecified asthma with (acute) exacerbation (principal); J44.9 Chronic obstructive pulmonary disease, unspecified; R06.00 Dyspnea, unspecified; Z20.822 Contact with and (suspected) exposure to COVID-19; Z79.899 Other long term (current) drug therapy; F17.210 Nicotine dependence, cigarettes, uncomplicated; Z71.6 Tobacco abuse counseling; Z99.81 Dependence on supplemental oxygen
CPT/HCPCS: 87635; 94640; 96374; 99284; J3475

== ENCOUNTER 2021-12-05 14:05 | Emergency (ER) | payer MEDICAID, SELFPAY ==
[2021-12-05 15:32] VITALS: BP 141/64; PULSE 103; RESP 18; TEMP 36.4; O2SAT 95; BMI 107.6
--- NOTE | 2021-12-05 15:55 | ED.GENADULT ---
HPI - General Adult General Chief complaint: General Medical Stated complaint: headache back ache covid exposure Time Seen by Provider: 12/05/21 15:55 Source: patient Mode of arrival: ambulatory Limitations: no limitations History of Present Illness HPI narrative: Patient is a 51 year old female presenting to the emergency department today with low back pain and exposure to COVID. Patient states that she opened a window earlier today and now her low back is hurting but she would also like to be tested for COVID-19 because her daughter was seen here earlier today and tested positive. Patient denies any dizziness, lightheadedness, abdominal pain, nausea, vomiting, fever, chills, blurry vision, double vision, loss of vision, chest pain, difficulty breathing, shortness of breath, night sweats, pain with urination, increased urinary frequency, increased urinary urgency, blood in her urine or stool, syncope or a near syncopal episode, recent trauma or falls, bowel incontinence, bladder incontinence, bowel retention, bladder retention, or any other complaints at this time. Severity: mild Severity scale (1-10): 1 Quality: dull Relieving factors: none Exacerbating factors: none Associated symptoms: denies other symptoms Treatments prior to arrival: none Related Data Home Medications Medication Instructions Recorded Confirmed albuterol sulfate 90 mcg/actuation 2 puff inhalation Q4H PRN 12/30/19 11/02/21 aerosol inhaler (ProAir HFA) Shortness Of Breath Or Wheezing loratadine 10 mg tablet (Claritin) 10 mg PO DAILY 12/30/19 11/02/21 montelukast 10 mg tablet 10 mg PO BEDTIME 12/30/19 11/02/21 diltiazem HCl 360 mg capsule,24 1 cap PO DAILY 11/16/20 11/02/21 hr,extended release (Tiadylt ER) roflumilast 500 mcg tablet 1 tab PO DAILY 11/16/20 11/02/21 (Daliresp) rosuvastatin 5 mg tablet 1 tab PO BEDTIME 11/16/20 11/02/21 insulin lispro 100 unit/mL See Protocol subcut TIDAC 12/14/20 11/02/21 subcutaneous solution (Humalog U-100 Insulin) metformin 500 mg tablet,extended 2 tab PO BID 05/18/21 11/02/21 release 24 hr ergocalciferol (vitamin D2) 1,250 1,250 mcg PO QWEEK 06/06/21 11/02/21 mcg (50,000 unit) capsule methadone 10 mg/mL oral concentrate 49 mg PO DAILY 06/06/21 09/24/21 insulin glargine 100 unit/mL 45 unit subcut BEDTIME 06/07/21 11/02/21 subcutaneous solution (Lantus U-100 Insulin) lisinopril 40 mg tablet 1 tab PO DAILY 07/30/21 11/02/21 glecaprevir 100 mg-pibrentasvir 40 3 tab PO DAILY 11/02/21 11/02/21 mg tablet (Mavyret) hydralazine 25 mg tablet 1 tab PO TID 11/02/21 11/02/21 insulin lispro 100 unit/mL 4 unit subcut TIDAC 11/02/21 11/02/21 subcutaneous solution omeprazole 40 mg capsule,delayed 40 mg PO DAILY@0630 11/02/21 11/02/21 release Previous Rx's Medication Instructions Recorded tiotropium bromide 18 mcg capsule 1 cap inhalation DAILY #30 ea 06/25/21 with inhalation device (Spiriva with HandiHaler) arformoterol 15 mcg/2 mL solution 2 ml inhalation Q12H 30 days #120 07/24/21 for nebulization (Brovana) mL budesonide 0.5 mg/2 mL suspension 0.5 mg (2 mL) inhalation BID #120 07/24/21 for nebulization mL gabapentin 300 mg capsule 300 mg PO BID 30 days #60 caps 09/19/21 diclofenac potassium 50 mg tablet 50 mg PO BID 30 days #60 tabs 10/08/21 prednisone 10 mg tablet See Rx Instructions PO .COMPLEX 10/15/21 #90 tabs ondansetron 4 mg disintegrating 4 mg PO Q6H PRN nausea and 11/01/21 tablet vomiting #10 tabs prednisone 10 mg tablet See Rx Instructions .Route 11/08/21 .COMPLEX #40 tabs ipratropium 0.5 mg-albuterol 3 mg 3 ml PO Q4H PRN for wheezing #540 11/26/21 (2.5 mg base)/3 mL nebulization mL soln Allergies Allergy/AdvReac Type Severity Reaction Status Date / Time No Known Allergies Allergy Verified 12/05/21 15:32 [No Known Allergies*] Review of Systems Constitutional: Constitutional: Reports no additional constitutional complaints, Denies chills, Denies fever(s) and Denies night sweats Eyes: Eyes: Reports no additional eye complaints, Denies blurry vision, Denies change in vision, Denies diplopia, Denies eye discharge, Denies loss of vision and Denies eye pain ENT: Denies dizziness Cardiovascular: Cardiovascular: Reports no additional cardiovascular complaints, Denies chest pain, Denies lightheadedness, Denies Loss of Consciousness and Denies dyspnea Respiratory: Respiratory: Reports no additional respiratory complaints and Denies dyspnea Gastrointestinal: Gastrointestinal: Reports no additional gastrointestinal complaints, Denies abdominal pain, Denies melena, Denies hematochezia, Denies change in bowel habits and Denies change in stool character Genitourinary: Genitourinary: Denies hematuria, Denies urinary frequency, Denies dysuria, Denies urinary incontinence, Denies urinary hesitancy and Denies urinary urgency Musculoskeletal: Musculoskeletal: Reports no additional musculoskeletal complaints, Reports back pain, Denies numbness and Denies tingling Neurologic: Denies dizziness, Denies loss of vision, Denies numbness and Denies tingling Psychiatric: Psychiatric: Reports no additional psychiatric complaints Endocrine: Endocrine: Reports no additional endocrine complaints Hematologic/Lymphatic: Hematologic/Lymphatic: Reports no additional hematologic/lymphatic complaints Allergic/Immunologic: Allergic/Immunologic: Reports no additional allergic/immunologic complaints [facility] Past Medical History Attestation statement: The following information was validated with the patient. Source: old records reviewed Medical History Abdominal pain Abnormal chest x-ray Acute respiratory failure Aspiration into airway Asthma-COPD overlap syndrome Chronic respiratory failure Chronic respiratory failure Congestive heart failure COPD (chronic obstructive pulmonary disease) COPD exacerbation Diabetes mellitus Essential hypertension Hyperlipidemia, unspecified Hypertensive cardiovascular disease Hypogammaglobulinemia Leukocytosis Limb swelling Morbid obesity Opioid dependence Poor dentition Pulmonary congestion Pulmonary nodule Rib fractures Status asthmaticus with COPD (chronic obstructive pulmonary disease) Tobacco abuse Type 2 diabetes mellitus Type 2 diabetes mellitus with unspecified complications Vomiting Surgical History H/O tubal ligation Family History Family History Father Diabetes Other Asthma Social History Social History Household Members: Unknown / Unable to assess Household Members Other:: 3 Housing: Unknown / Unable to assess Do you presently have visiting nurse or other home services: No Unable to assess alcohol history related to: Unknown Alcohol intake: never Patient Tobacco Use Status: Tobacco use Unknown Tobacco use type: Cigarette Cigarettes Per Day: 1 Years Smoked: 35 e-Cigarette/Vaping Use: Currently Using Second Hand Smoke Exposure: No Substance Use Type: Opiates Advance Directives: Yes Advance Directives on File: Yes Advance Directives Date on File: 06/12/21 service: No Current occupational status: disabled Physical Exam ED Vital Signs: Vital Signs - 24 hr 12/05/21 15:32 Temperature 97.6 F Pulse Rate 103 H Respiratory Rate 18 Blood Pressure 141/64 H Pulse Oximetry 95 Oxygen Delivery Method Nasal Cannula BMI result Body Mass Index 107.6 Const General: cooperative, no acute distress, alert and awake Nutritional Appearance: well nourished Orientation/consciousness: patient oriented x3 Limitations: no limitations HENMT Head: Yes normal to inspection and Yes atraumatic Ears: hearing grossly normal bilaterally and external ears normal General nose exam: Normal external nose present, no nasal discharge noted and no epistaxis Face and sinus: Yes normal facial exam, No abrasion and No laceration Mouth: Normal oral and palatal mucosa present, no drooling and no muffled voice Eyes General: appearance normal, both eyes and all related structures Periorbital: periorbital findings normal Eyelids: Yes eyelids normal Conjunctivae: conjunctivae normal Pupils: Equal, round and reactive pupils present EOM: EOMs intact bilaterally Neck Neck: Yes normal visual inspection, Yes full ROM and Yes no lymphadenopathy Chest Chest palpation & inspection: normal inspection of the chest Resp Other: patient on 2LPM of oxygen chronically Effort & Inspection: normal respiratory effort and able to speak in complete sentences Cardio Rate: regular rate Rhythm: regular rhythm GI Inspection: Yes normal to inspection General: Yes no CVA tenderness Back/Spine/Pelvis Back: no CVA tenderness Cervical Spine: normal cervical lordosis and cervical ROM normal Thoracic/Lumbar Spine: thoracic and lumbar spine normal to inspection and thoraco-lumbar ROM normal Pelvis: no pain with anterior-posterior compression Neuro General: patient oriented x3 and moves all extremities Cranial nerves: Yes Equal, round and reactive pupils present Cognition (Neuro): normal cognition Motor exam (neuro): 5/5 motor strength present throughout Sensory Exam: Normal double simultaneous stimulation for sensation Coordination: [id number] test normal Extrem General: Yes normal to inspection, Yes full ROM and Yes capillary refill normal Psych Appearance: grossly normal Mental Status: mental status grossly normal Affect: normal affect Attitude: cooperative Thought process: Normal thought process present Thought content: Normal thought content present Insight: Good insight present (Psych) Medical Decision Making MDM Narrative Medical decision making narrative: Patient is a 51 year old female presenting to the emergency department today with low back pain and requesting COVID-19 testing. Patient's physical exam was unremarkable. Patient's rapid COVID-19 test was negative. I explained my physical exam findings as well as all test results to the patient. I answered all questions asked by the patient. Patient received PO Flexeril which she stated helped her back pain significantly. I stressed the importance of the patient taking her medication as prescribed. I stressed the importance of the patient following up with her primary care provider. I stressed the importance of the patient returning to the emergency department immediately if her symptoms were to worsen or if she were to develop any dizziness, shortness of breath, difficulty breathing, chest pain, blurry vision, loss of vision, nausea, vomiting, abdominal pain, fever, chills, back pain, or any other complaints. Patient verbalized agreement and understanding with this treatment plan and discharge. Differential Diagnosis Differential Diagnosis: low back pain, COVID-19 exposure Medical Records Medical records reviewed: Yes I reviewed the patient's medical records. Lab Data Lab results reviewed: Yes I reviewed the patient's lab results. Labs: Lab Results 12/05/21 Range/Units 15:45 COVID-19 (PAPO) Negative (Negative) COVID-19 Clin Com See Note Discharge Plan Discharge Clinical Impression: Close exposure to COVID-19 virus Patient Disposition: Home, Self-Care Additional Instructions: Follow up with your primary care provider. Return to the emergency department immediately if your symptoms worsen or if you develop any dizziness, shortness of breath, difficulty breathing, chest pain, blurry vision, loss of vision, nausea, vomiting, abdominal pain, fever, chills, back pain, or any other complaints. Prescriptions: No Action Spiriva with HandiHaler 18 mcg capsule, w/inhalation device 1 cap inhalation DAILY Qty: 30 11RF gabapentin 300 mg capsule 300 mg PO BID 30 Days Qty: 60 3RF diclofenac potassium 50 mg tablet 50 mg PO BID 30 Days Qty: 60 0RF prednisone 10 mg tablet See Rx Instructions PO .COMPLEX Qty: 90 3RF Rx Instructions: Take 2 tablets by mouth every morning, take 1 tablet every evening. ipratropium-albuterol 0.5 mg-3 mg(2.5 mg base)/3 mL solution for nebulization 3 ml PO Q4H PRN (Reason: for wheezing) Qty: 540 6RF diltiazem HCl [Tiadylt ER] 360 mg capsule,extended release 24 hr 1 cap PO DAILY rosuvastatin 5 mg tablet 1 tab PO BEDTIME Daliresp 500 mcg tablet 1 tab PO DAILY insulin lispro [Humalog U-100 Insulin] 100 unit/mL solution See Protocol subcut TIDAC Protocol: Insulin Correction Scale Less than or equal to 110 ---- Give (units): 0 111 to 150 Give (units): 0 151 to 200 Give (units): 2 201 to 250 Give (units): 4 251 to 300 Give (units): 6 301 to 350 Give (units): 8 Greater than 350 Give (units): 10 Call MD if Blood Glucose > : 350 metformin 500 mg tablet extended release 24 hr 2 tab PO BID hydralazine 25 mg tablet 1 tab PO TID insulin lispro 100 unit/mL solution 4 unit subcut TIDAC Mavyret 100-40 mg tablet 3 tab PO DAILY omeprazole 40 mg capsule,delayed release(DR/EC) 40 mg PO DAILY@0630 prednisone 10 mg tablet See Rx Instructions .ROUTE .COMPLEX Qty: 40 0RF Rx Instructions: 40 mg daily x 4 days, then 30 mg daily x 4 days, then 20 mg daily x 4 days, then 10 mg daily x 4 days methadone 10 mg/mL Concentrate 49 mg PO DAILY ergocalciferol (vitamin D2) 1,250 mcg (50,000 unit) capsule 1,250 mcg PO QWEEK insulin glargine [Lantus U-100 Insulin] 100 unit/mL solution 45 unit subcut BEDTIME lisinopril 40 mg tablet 1 tab PO DAILY ondansetron 4 mg tablet,disintegrating 4 mg PO Q6H PRN (Reason: nausea and vomiting) Qty: 10 0RF montelukast 10 mg tablet 10 mg PO BEDTIME albuterol sulfate [ProAir HFA] 90 mcg/actuation HFA aerosol inhaler 2 puff inhalation Q4H PRN (Reason: Shortness Of Breath Or Wheezing) loratadine [Claritin] 10 mg tablet 10 mg PO DAILY Brovana 15 mcg/2 mL solution for nebulization 2 ml inhalation Q12H 30 Days Qty: 120 11RF budesonide 0.5 mg/2 mL suspension for nebulization 0.5 mg inhalation BID Qty: 120 11RF Referrals: Kelli Benavides MD [Primary Care Provider] - Interventions: ED Discharge Assessment Last Done: 12/05/21 17:55 Discharge Date/Time: 12/05/21 17:15 Print Language: Thai
[2021-12-05 16:28] LABS: COVID-19 Test Negative (Negative); IDNOW Serial# 16C4AD1C
[2021-12-05] MEDS: Cyclobenzaprine HCl 5 MG TABLET PO (17:22)
== END 2021-12-05 17:15 | disposition home or self-care (01) ==
PROVIDERS: Emergency Provider Emergency Medicine Emergency Medical Services; PCP Family Medicine
DX: R51.9 Headache, unspecified (principal); Z20.822 Contact with and (suspected) exposure to COVID-19; I11.0 Hypertensive heart disease with heart failure; I50.9 Heart failure, unspecified; E11.9 Type 2 diabetes mellitus without complications; E78.5 Hyperlipidemia, unspecified; E66.01 Morbid (severe) obesity due to excess calories; Z68.45 Body mass index [BMI] 70 or greater, adult; F11.20 Opioid dependence, uncomplicated; Z87.891 Personal history of nicotine dependence; Z79.02 Long term (current) use of antithrombotics/antiplatelets; Z79.4 Long term (current) use of insulin; Z79.899 Other long term (current) drug therapy
CPT/HCPCS: 87635; 99283

== ENCOUNTER 2021-12-06 16:29 | Emergency (ER) | payer MEDICAID, SELFPAY ==
--- NOTE | ~2021-12-06 | XR_ITS ---
EXAMINATION: XR CHEST CLINICAL INFORMATION: Dyspnea COMPARISON: Chest x-ray on 11/02/2021 TECHNIQUE: Frontal view of the chest was obtained. FINDINGS: No significant abnormality is noted involving the heart, lungs, mediastinum, bony thorax or soft tissues. XR/XR chest 1V IMPRESSION: Unremarkable examination.
[2021-12-06 16:38] VITALS: BP 172/96; PULSE 103; O2SAT 95
[2021-12-06 18:03] VITALS: BP 146/65; PULSE 95; RESP 18; O2SAT 95; BMI 41.5
--- NOTE | 2021-12-06 18:07 | ECG_ITS ---
Test Reason : dyspnea Blood Pressure : / mmHG Vent. Rate : 090 BPM Atrial Rate : 090 BPM P-R Int : 136 ms QRS Dur : 084 ms QT Int : 356 ms P-R-T Axes : 063 027 044 degrees QTc Int : 435 ms Normal sinus rhythm Normal ECG When compared with ECG of 02-NOV-2021 13:59, QT has shortened Referred By: Generic ED Physician Electronically Signed By:CANDI VARGAS
[2021-12-06 18:26] LABS: Basophils Absolute Auto 0.1 X10*3/uL (0.0-0.2); Basophils Percent Auto 0.3 % (0-2); Hemoglobin 12.1 g/dl (12.0-16.0); Imm Gran Abs Auto 0.35 X10*3/uL (0.00-0.03); Imm Gran Pct Auto 1.9 % (0.0-0.4); Lymphocytes Absolute Auto 0.4 X10*3/uL (1.2-4.9); Lymphocytes Percent Auto 2.2 % (20-40); MANUAL DIFF FLAG SCAN; Mean Corpuscular HGB Conc 30.3 g/dl (31.0-35.0); Mean Corpuscular Hemoglobin 29.9 pg (27.0-33.0); Mean Corpuscular Volume 98.8 fL (80.0-98.0); Mean Platelet Volume 9.2 fL (9.4-12.3); Monocytes Absolute Auto 0.3 X10*3/uL (0.1-1.2); Monocytes Percent Auto 1.8 % (2-11); Neutrophils Absolute Auto 17.7 x10*3/uL (2.0-8.3); Neutrophils Percent Auto 93.8 % (45-73); Platelet Count 249 X10*3/uL (160-400); Red Blood Count 4.05 X10*6/uL (4.20-5.50); Red Cell Distribution Width 13.4 % (11.0-16.0); SCAN SMEAR FLAG 1; White Blood Count 18.9 X10*3/uL (4.8-10.8)
[2021-12-06 18:41] LABS: COVID-19 Test Negative (Negative)
[2021-12-06 18:49] LABS: Alanine Aminotransferase 21 U/L (0-31); Alkaline Phosphatase 91 U/L (39-117); Anion Gap 15 (12-20); Aspartate Amino Transferase 17 U/L (5-31); Bilirubin Direct 0.2 mg/dL (0.0-0.5); Bilirubin Total 0.3 mg/dL (0.0-1.0); Blood Urea Nitrogen 21 mg/dL (9-16); Calcium 9.6 mg/dL (8.4-10.2); Carbon Dioxide 37 mmol/L (22-29); Chloride 93 mmol/L (96-108); Creatinine Clr Calc Pharmacy 118.2; Estimated Glomerular Filt Rate > 60; Glucose Random 203 mg/dL (60-115); Potassium 5.4 mmol/L (3.3-5.1); SLIDE REVIEW VERIFIED; Sodium 140 mmol/L (135-145)
[2021-12-06 19:11] LABS: B Type Natriuretic Peptide < 10 pg/mL (<100); Troponin-I High Sensitivity 11.5 ng/L (<3.5-17.0)
[2021-12-06 22:39] VITALS: BP 155/76; PULSE 94; RESP 18; TEMP 36.3; O2SAT 94
[2021-12-07 00:02] VITALS: BP 146/67; PULSE 94; O2SAT 94
[2021-12-07 00:48] VITALS: BP 133/81; PULSE 90; O2SAT 96
--- NOTE | 2021-12-07 01:04 | ED.GENADULT ---
HPI - General Adult General Chief complaint: Dyspnea Stated complaint: headache sob Time Seen by Provider: 12/07/21 00:49 History of Present Illness HPI narrative: 51-year-old female with a history of COPD with chronic hypercapnia on home oxygen at 2-2.5 L via nasal cannula continuously who presents emergency department for evaluation headache nausea and shortness of breath. The patient states that she has an intermittent headache which she describes as a pressure-like sensation located throughout her entire head. She states that the pain is moderate in intensity. She states she often gets this pain when her CO2 levels are high. She also has constant nausea with no vomiting. The patient states that she short of breath but it is no different than her baseline. She denied fever, chills or cough. The patient was seen in the emergency department yesterday 12/05/2021 for lower back pain that occurred several days prior after she opened a window and also be tested for COVID-19 since she was exposed to a family member who was COVID positive. Related Data Home Medications Medication Instructions Recorded Confirmed albuterol sulfate 90 mcg/actuation 2 puff inhalation Q4H PRN 12/30/19 11/02/21 aerosol inhaler (ProAir HFA) Shortness Of Breath Or Wheezing loratadine 10 mg tablet (Claritin) 10 mg PO DAILY 12/30/19 11/02/21 montelukast 10 mg tablet 10 mg PO BEDTIME 12/30/19 11/02/21 diltiazem HCl 360 mg capsule,24 1 cap PO DAILY 11/16/20 11/02/21 hr,extended release (Tiadylt ER) roflumilast 500 mcg tablet 1 tab PO DAILY 11/16/20 11/02/21 (Daliresp) rosuvastatin 5 mg tablet 1 tab PO BEDTIME 11/16/20 11/02/21 insulin lispro 100 unit/mL See Protocol subcut TIDAC 12/14/20 11/02/21 subcutaneous solution (Humalog U-100 Insulin) metformin 500 mg tablet,extended 2 tab PO BID 05/18/21 11/02/21 release 24 hr ergocalciferol (vitamin D2) 1,250 1,250 mcg PO QWEEK 06/06/21 11/02/21 mcg (50,000 unit) capsule methadone 10 mg/mL oral concentrate 49 mg PO DAILY 06/06/21 09/24/21 insulin glargine 100 unit/mL 45 unit subcut BEDTIME 06/07/21 11/02/21 subcutaneous solution (Lantus U-100 Insulin) lisinopril 40 mg tablet 1 tab PO DAILY 07/30/21 11/02/21 glecaprevir 100 mg-pibrentasvir 40 3 tab PO DAILY 11/02/21 11/02/21 mg tablet (Mavyret) hydralazine 25 mg tablet 1 tab PO TID 11/02/21 11/02/21 insulin lispro 100 unit/mL 4 unit subcut TIDAC 11/02/21 11/02/21 subcutaneous solution omeprazole 40 mg capsule,delayed 40 mg PO DAILY@0630 11/02/21 11/02/21 release Previous Rx's Medication Instructions Recorded tiotropium bromide 18 mcg capsule 1 cap inhalation DAILY #30 ea 06/25/21 with inhalation device (Spiriva with HandiHaler) arformoterol 15 mcg/2 mL solution 2 ml inhalation Q12H 30 days #120 07/24/21 for nebulization (Brovana) mL budesonide 0.5 mg/2 mL suspension 0.5 mg (2 mL) inhalation BID #120 07/24/21 for nebulization mL gabapentin 300 mg capsule 300 mg PO BID 30 days #60 caps 09/19/21 diclofenac potassium 50 mg tablet 50 mg PO BID 30 days #60 tabs 10/08/21 prednisone 10 mg tablet See Rx Instructions PO .COMPLEX 10/15/21 #90 tabs ondansetron 4 mg disintegrating 4 mg PO Q6H PRN nausea and 11/01/21 tablet vomiting #10 tabs prednisone 10 mg tablet See Rx Instructions .Route 11/08/21 .COMPLEX #40 tabs ipratropium 0.5 mg-albuterol 3 mg 3 ml PO Q4H PRN for wheezing #540 11/26/21 (2.5 mg base)/3 mL nebulization mL soln ondansetron 4 mg disintegrating 4 mg PO Q6-8H PRN nausea and 12/07/21 tablet vomiting #14 tabs Allergies Allergy/AdvReac Type Severity Reaction Status Date / Time No Known Allergies Allergy Verified 12/05/21 15:32 [No Known Allergies*] Review of Systems Review of Systems: Yes all other systems are reviewed and are negative PMFSH Past Medical History [facility] Narrative: Social history: She denies tobacco, alcohol and drug use. Medical History Abdominal pain Abnormal chest x-ray Acute respiratory failure Aspiration into airway Asthma-COPD overlap syndrome Chronic respiratory failure Chronic respiratory failure Congestive heart failure COPD (chronic obstructive pulmonary disease) COPD exacerbation Diabetes mellitus Essential hypertension Hyperlipidemia, unspecified Hypertensive cardiovascular disease Hypogammaglobulinemia Leukocytosis Limb swelling Morbid obesity Opioid dependence Poor dentition Pulmonary congestion Pulmonary nodule Rib fractures Status asthmaticus with COPD (chronic obstructive pulmonary disease) Tobacco abuse Type 2 diabetes mellitus Type 2 diabetes mellitus with unspecified complications Vomiting Surgical History H/O tubal ligation Family History Family History Father Diabetes Other Asthma Social History Social History Household Members: Unknown / Unable to assess Household Members Other:: 3 Housing: Unknown / Unable to assess Do you presently have visiting nurse or other home services: No Unable to assess alcohol history related to: Unknown Alcohol intake: never Patient Tobacco Use Status: Tobacco use Unknown Tobacco use type: Cigarette Cigarettes Per Day: 1 Years Smoked: 35 e-Cigarette/Vaping Use: Currently Using Second Hand Smoke Exposure: No Substance Use Type: Opiates Advance Directives: Yes Advance Directives on File: Yes Advance Directives Date on File: 06/12/21 service: No Current occupational status: disabled Physical Exam ED Vital Signs: Vital Signs - 24 hr 12/06/21 18:03 12/06/21 22:39 12/07/21 00:02 Temperature 97.3 F Pulse Rate 95 94 94 Respiratory Rate 18 18 Blood Pressure 146/65 H 155/76 H 146/67 H Pulse Oximetry 95 94 94 Oxygen Delivery Method Nasal Cannula Nasal Cannula Nasal Cannula Oxygen Flow Rate 2 2 12/07/21 00:48 12/07/21 01:14 Temperature Pulse Rate 90 89 Respiratory Rate 16 Blood Pressure 133/81 Pulse Oximetry 96 Oxygen Delivery Method Nasal Cannula Oxygen Flow Rate 4 BMI result Body Mass Index 41.5 Const Other: Awake, alert, chronically ill appearing patient, she is able answer questions without any difficulty. She is using accessory muscles to breathe Orientation/consciousness: oriented to person and oriented to place HENLA Head: Yes normal to inspection, Yes normocephalic and Yes atraumatic Ears: external ears normal General nose exam: Normal external nose present Face and sinus: Yes normal facial exam Mouth: Normal oral and palatal mucosa present Throat: Yes posterior oropharynx normal Eyes General: appearance normal, both eyes and all related structures Pupils: Equal, round and reactive pupils present Neck Neck: Yes normal visual inspection, Yes no lymphadenopathy, Yes trachea midline and Yes supple Chest Chest palpation & inspection: normal inspection of the chest and normal palpation of entire chest wall Resp Other: Using accessory muscles to breathe, patient has diffuse wheezing, no rales or rhonchi Cardio Rate: regular rate Rhythm: regular rhythm Heart sounds: S1 normal heart sound present, S2 normal heart sound present and no murmurs GI Inspection: Yes normal to inspection Palpation (GI): Soft to palpation, nontender and no guarding Auscultation: normal bowel sounds General: Yes no CVA tenderness Back/Spine/Pelvis Back: no CVA tenderness Skin General skin exam: no rashes or lesions noted Neuro General: oriented to person and oriented to place Cranial nerves: Yes CN's II-XII intact bilaterally and Yes Equal, round and reactive pupils present Cognition (Neuro): normal cognition Motor exam (neuro): 5/5 motor strength present throughout Extrem General: Yes normal to inspection Psych Appearance: grossly normal Speech and movement: Normal speech and movement present Affect: normal affect Attitude: cooperative Thought process: Normal thought process present Thought content: Normal thought content present Course Course Course Narrative: 51-year-old female with a history of COPD with CO2 retention on chronic O2 therapy 2.0-2.5 L by nasal cannula who presents emergency department for evaluation of a headache and persistent nausea. The patient believes that her breathing as at her baseline but she is concerned that she may be retaining CO2 since she had similar headaches in the past when she has high levels of CO2. The patient's vital signs did reveal an initial elevated blood pressure of 146/65 with a repeat blood pressure of 133/81, O2 saturation was 95% on 2 L via nasal cannula. Patient's lung exam did reveal diffuse wheezing which I believe is chronic. Her neurologic exam was nonfocal. I ordered Tylenol 975 mg orally Zofran 4 mg ODT and an albuterol nebulizer 5 mg x1. 0301: The patient does feel better after the above treatment the patient will be discharged home with a prescription for Zofran and advised to take Tylenol. Patient was advised to continue taking all of her other medications as well. Medical Decision Making Lab Data Result diagrams: 12/06/21 18:19 12/06/21 18:19 Labs: Lab Results 12/06/21 12/06/21 12/06/21 Range/Units 18:16 18:19 18:19 WBC 18.9 H (4.8-10.8) X10*3/uL RBC 4.05 L (4.20-5.50) X10*6/uL Hgb 12.1 (12.0-16.0) g/dl Hct 40.0 (37.0-47.0) % MCV 98.8 H (80.0-98.0) fL MCH 29.9 (27.0-33.0) pg MCHC 30.3 L (31.0-35.0) g/dl RDW 13.4 (11.0-16.0) % Plt Count 249 (160-400) X10*3/uL MPV 9.2 L (9.4-12.3) fL Immature Gran % (Auto) 1.9 H (0.0-0.4) % Neut % (Auto) 93.8 H (45-73) % Lymph % (Auto) 2.2 L (20-40) % [place] % (Auto) 1.8 L (2-11) % Eos % (Auto) 0.0 (0-4) % Baso % (Auto) 0.3 (0-2) % Lymph # (Auto) 0.4 L (1.2-4.9) X10*3/uL [place] # (Auto) 0.3 (0.1-1.2) X10*3/uL Eos # (Auto) 0.0 (0.0-0.4) X10*3/uL Baso # (Auto) 0.1 (0.0-0.2) X10*3/uL Abs Immat Gran (auto) 0.35 H (0.00-0.03) X10*3/uL Absolute Neuts (auto) 17.7 H (2.0-8.3) x10*3/uL Absolute Nucleated RBC 0.000 (0.0-0.012) X10*3/uL Nucleated RBC % (auto) 0.0 (0.0-0.2) /100WBC Smear Tech's Comments VERIFIED Sodium 140 (135-145) mmol/L Potassium 5.4 H D (3.3-5.1) mmol/L Chloride 93 L (96-108) mmol/L Carbon Dioxide 37 H (22-29) mmol/L Anion Gap 15 (12-20) BUN 21 H (9-16) mg/dL Creatinine 0.61 (0.5-1.4) mg/dL Estim Creat Clear Calc 118.2 Estimated GFR > 60 Random Glucose 203 H (60-115) mg/dL Calcium 9.6 (8.4-10.2) mg/dL Total Bilirubin 0.3 (0.0-1.0) mg/dL Direct Bilirubin 0.2 (0.0-0.5) mg/dL AST 17 (5-31) U/L ALT 21 (0-31) U/L Alkaline Phosphatase 91 (39-117) U/L Troponin I High Sens (<3.5-17.0) ng/L B-Natriuretic Peptide (<100) pg/mL Total Protein 7.0 (6.5-8.0) g/dL Albumin 4.0 (3.5-5.0) g/dL COVID-19 (PAPO) Negative (Negative) COVID-19 Clin Com See Note 12/06/21 Range/Units 18:19 WBC (4.8-10.8) X10*3/uL RBC (4.20-5.50) X10*6/uL Hgb (12.0-16.0) g/dl Hct (37.0-47.0) % MCV (80.0-98.0) fL MCH (27.0-33.0) pg MCHC (31.0-35.0) g/dl RDW (11.0-16.0) % Plt Count (160-400) X10*3/uL MPV (9.4-12.3) fL Immature Gran % (Auto) (0.0-0.4) % Neut % (Auto) (45-73) % Lymph % (Auto) (20-40) % [place] % (Auto) (2-11) % Eos % (Auto) (0-4) % Baso % (Auto) (0-2) % Lymph # (Auto) (1.2-4.9) X10*3/uL [place] # (Auto) (0.1-1.2) X10*3/uL Eos # (Auto) (0.0-0.4) X10*3/uL Baso # (Auto) (0.0-0.2) X10*3/uL Abs Immat Gran (auto) (0.00-0.03) X10*3/uL Absolute Neuts (auto) (2.0-8.3) x10*3/uL Absolute Nucleated RBC (0.0-0.012) X10*3/uL Nucleated RBC % (auto) (0.0-0.2) /100WBC Smear Tech's Comments Sodium (135-145) mmol/L Potassium (3.3-5.1) mmol/L Chloride (96-108) mmol/L Carbon Dioxide (22-29) mmol/L Anion Gap (12-20) BUN (9-16) mg/dL Creatinine (0.5-1.4) mg/dL Estim Creat Clear Calc Estimated GFR Random Glucose (60-115) mg/dL Calcium (8.4-10.2) mg/dL Total Bilirubin (0.0-1.0) mg/dL Direct Bilirubin (0.0-0.5) mg/dL AST (5-31) U/L ALT (0-31) U/L Alkaline Phosphatase (39-117) U/L Troponin I High Sens 11.5 (<3.5-17.0) ng/L B-Natriuretic Peptide < 10 (<100) pg/mL Total Protein (6.5-8.0) g/dL Albumin (3.5-5.0) g/dL COVID-19 (PAPO) (Negative) COVID-19 Clin Com Discharge Plan Discharge Clinical Impression: Acute exacerbation of chronic obstructive pulmonary disease, Headache, Nausea Patient Disposition: Home, Self-Care Instructions: COPD (Chronic Obstructive Pulmonary Disease) (ED) Additional Instructions: Your blood work was normal, your CO2 was 37, in the past when you have been sick your CO2 was been between 45 and 50. Your chest x-ray was normal. Your COVID-19 was negative. The rest of your blood work was normal. I am sending you home with a prescription for nausea: Take Zofran ODT 4 mg pills, 1 pill dissolved in your mouth every 8 hours as needed for nausea and vomiting. Take Tylenol (acetaminophen) 500 mg pills, 2 pills every 4 to 6 hours as needed for pain. Follow-up with your doctor in 2 days. Please return to the emergency department if your symptoms get worse or if you develop any symptoms that are concerning to you. Prescriptions: New ondansetron 4 mg tablet,disintegrating 4 mg PO Q6-8H PRN (Reason: nausea and vomiting) Qty: 14 0RF No Action Spiriva with HandiHaler 18 mcg capsule, w/inhalation device 1 cap inhalation DAILY Qty: 30 11RF gabapentin 300 mg capsule 300 mg PO BID 30 Days Qty: 60 3RF diclofenac potassium 50 mg tablet 50 mg PO BID 30 Days Qty: 60 0RF prednisone 10 mg tablet See Rx Instructions PO .COMPLEX Qty: 90 3RF Rx Instructions: Take 2 tablets by mouth every morning, take 1 tablet every evening. ipratropium-albuterol 0.5 mg-3 mg(2.5 mg base)/3 mL solution for nebulization 3 ml PO Q4H PRN (Reason: for wheezing) Qty: 540 6RF diltiazem HCl [Tiadylt ER] 360 mg capsule,extended release 24 hr 1 cap PO DAILY rosuvastatin 5 mg tablet 1 tab PO BEDTIME Daliresp 500 mcg tablet 1 tab PO DAILY insulin lispro [Humalog U-100 Insulin] 100 unit/mL solution See Protocol subcut TIDA Protocol: Insulin Correction Scale Less than or equal to 110 ---- Give (units): 0 111 to 150 Give (units): 0 151 to 200 Give (units): 2 201 to 250 Give (units): 4 251 to 300 Give (units): 6 301 to 350 Give (units): 8 Greater than 350 Give (units): 10 Call MD if Blood Glucose > : 350 metformin 500 mg tablet extended release 24 hr 2 tab PO BID hydralazine 25 mg tablet 1 tab PO TID insulin lispro 100 unit/mL solution 4 unit subcut TIDAC Mavyret 100-40 mg tablet 3 tab PO DAILY omeprazole 40 mg capsule,delayed release(DR/EC) 40 mg PO DAILY@0630 prednisone 10 mg tablet See Rx Instructions .ROUTE .COMPLEX Qty: 40 0RF Rx Instructions: 40 mg daily x 4 days, then 30 mg daily x 4 days, then 20 mg daily x 4 days, then 10 mg daily x 4 days methadone 10 mg/mL Concentrate 49 mg PO DAILY ergocalciferol (vitamin D2) 1,250 mcg (50,000 unit) capsule 1,250 mcg PO QWEEK insulin glargine [Lantus U-100 Insulin] 100 unit/mL solution 45 unit subcut BEDTIME lisinopril 40 mg tablet 1 tab PO DAILY ondansetron 4 mg tablet,disintegrating 4 mg PO Q6H PRN (Reason: nausea and vomiting) Qty: 10 0RF montelukast 10 mg tablet 10 mg PO BEDTIME albuterol sulfate [ProAir HFA] 90 mcg/actuation HFA aerosol inhaler 2 puff inhalation Q4H PRN (Reason: Shortness Of Breath Or Wheezing) loratadine [Claritin] 10 mg tablet 10 mg PO DAILY Brovana 15 mcg/2 mL solution for nebulization 2 ml inhalation Q12H 30 Days Qty: 120 11RF budesonide 0.5 mg/2 mL suspension for nebulization 0.5 mg inhalation BID Qty: 120 11RF
[2021-12-07 01:14] VITALS: PULSE 89; RESP 16; O2SAT 97
[2021-12-07] MEDS: Albuterol Sulfate (0.083%) 2.5 MG/3 ML VIAL.NEB 5 MG INHALE (01:14)
--- NOTE | 2021-12-07 01:36 | PC.NURSE ---
pt currently receiving her breathing treatment with air as the delivery system vs O2.
[2021-12-07] MEDS: Ondansetron ODT 4 MG TAB.RAPDIS TRANSLINGU (02:18)
[2021-12-07] MEDS: Acetaminophen 325 MG TABLET 975 MG PO (02:54)
== END 2021-12-07 03:38 | disposition home or self-care (01) ==
PROVIDERS: Emergency Provider Emergency Medicine Emergency Medical Services; PCP Family Medicine
DX: J44.1 Chronic obstructive pulmonary disease with (acute) exacerbation (principal); R51.9 Headache, unspecified; R11.0 Nausea; R06.02 Shortness of breath; Z20.822 Contact with and (suspected) exposure to COVID-19; E11.9 Type 2 diabetes mellitus without complications; I10 Essential (primary) hypertension; E78.5 Hyperlipidemia, unspecified; F17.210 Nicotine dependence, cigarettes, uncomplicated; F11.20 Opioid dependence, uncomplicated; E66.01 Morbid (severe) obesity due to excess calories; Z68.41 Body mass index [BMI] 40.0-44.9, adult; Z99.81 Dependence on supplemental oxygen; Z79.4 Long term (current) use of insulin; Z79.899 Other long term (current) drug therapy; Z79.02 Long term (current) use of antithrombotics/antiplatelets
CPT/HCPCS: 71045; 80053; 82248; 83880; 84484; 85025; 87635; 93005; 94640; 99284

== ENCOUNTER 2021-12-08 09:15 | Inpatient (IN) | payer MEDICAID, SELFPAY ==
[2021-12-08] VITALS (11 sets, daily range): BP systolic 106–156; BP diastolic 54–98; PULSE 88–118; RESP 18–28; TEMP 37.1; O2SAT 70–99; BMI 41.5
--- NOTE | ~2021-12-08 | XR_ITS ---
EXAMINATION: XR CHEST CLINICAL INFORMATION: Shortness of breath COMPARISON: None TECHNIQUE: Frontal view of the chest was obtained. FINDINGS: The cardiac and mediastinal contours are stable. The lungs are clear. There is no pleural effusion or pneumothorax. There are old bilateral rib fractures. XR/XR chest 1V IMPRESSION: No evidence for acute disease in the chest.
--- NOTE | 2021-12-08 09:25 | ECG_ITS ---
Test Reason : DYSPNEA Blood Pressure : / mmHG Vent. Rate : 100 BPM Atrial Rate : 100 BPM P-R Int : 166 ms QRS Dur : 086 ms QT Int : 374 ms P-R-T Axes : -15 023 055 degrees QTc Int : 482 ms Poor data quality, interpretation may be adversely affected Normal sinus rhythm Septal infarct , age undetermined Cannot rule out Inferior infarct , age undetermined ST & T wave abnormality, consider lateral ischemia Abnormal ECG When compared with ECG of 06-DEC-2021 18:11, Non-specific change in ST segment in Lateral leads Referred By: Lidia Green Electronically Signed By:CANDI VARGAS
--- NOTE | 2021-12-08 09:27 | ED.SOB ---
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 Patient in the ED in apparent shortness of breath, unable to speak in full sentence, with diffuse wheezing. Patient is complaining of coughing with clear sputum, no fever or chills. Patient is still actively smoking. Recent sick contact (daughter diagnosed with COVID-19 last week). Related Data Home Medications Medication Instructions Recorded Confirmed albuterol sulfate 90 mcg/actuation 2 puff inhalation Q4H PRN 12/30/19 12/08/21 aerosol inhaler (ProAir HFA) Shortness Of Breath Or Wheezing loratadine 10 mg tablet (Claritin) 10 mg PO DAILY 12/30/19 12/08/21 montelukast 10 mg tablet 10 mg PO BEDTIME 12/30/19 12/08/21 diltiazem HCl 360 mg capsule,24 1 cap PO DAILY 11/16/20 12/08/21 hr,extended release (Tiadylt ER) roflumilast 500 mcg tablet 1 tab PO DAILY 11/16/20 12/08/21 (Daliresp) rosuvastatin 5 mg tablet 1 tab PO BEDTIME 11/16/20 12/08/21 insulin lispro 100 unit/mL See Protocol subcut TIDAC 12/14/20 12/08/21 subcutaneous solution (Humalog U-100 Insulin) metformin 500 mg tablet,extended 2 tab PO BID 05/18/21 12/08/21 release 24 hr ergocalciferol (vitamin D2) 1,250 1,250 mcg PO QWEEK 06/06/21 12/08/21 mcg (50,000 unit) capsule methadone 10 mg/mL oral concentrate 49 mg PO DAILY 06/06/21 09/24/21 insulin glargine 100 unit/mL 45 unit subcut BEDTIME 06/07/21 12/08/21 subcutaneous solution (Lantus U-100 Insulin) lisinopril 40 mg tablet 1 tab PO DAILY 07/30/21 12/08/21 glecaprevir 100 mg-pibrentasvir 40 3 tab PO DAILY 11/02/21 12/08/21 mg tablet (Mavyret) hydralazine 25 mg tablet 1 tab PO TID 11/02/21 12/08/21 insulin lispro 100 unit/mL 4 unit subcut TIDAC 11/02/21 12/08/21 subcutaneous solution omeprazole 40 mg capsule,delayed 40 mg PO DAILY@0630 11/02/21 12/08/21 release lidocaine 5 % topical patch 1 patch topical DAILY 12/08/21 12/08/21 (Lidoderm) Previous Rx's Medication Instructions Recorded tiotropium bromide 18 mcg capsule 1 cap inhalation DAILY #30 ea 06/25/21 with inhalation device (Spiriva with HandiHaler) arformoterol 15 mcg/2 mL solution 2 ml inhalation Q12H 30 days #120 07/24/21 for nebulization (Brovana) mL budesonide 0.5 mg/2 mL suspension 0.5 mg (2 mL) inhalation BID #120 07/24/21 for nebulization mL gabapentin 300 mg capsule 300 mg PO BID 30 days #60 caps 09/19/21 diclofenac potassium 50 mg tablet 50 mg PO BID 30 days #60 tabs 10/08/21 ipratropium 0.5 mg-albuterol 3 mg 3 ml PO Q4H PRN for wheezing #540 11/26/21 (2.5 mg base)/3 mL nebulization mL soln ondansetron 4 mg disintegrating 4 mg PO Q6-8H PRN nausea and 12/07/21 tablet vomiting #14 tabs Allergies Allergy/AdvReac Type Severity Reaction Status Date / Time No Known Allergies Allergy Verified 12/05/21 15:32 [No Known Allergies*] Review of Systems Review of Systems: All other systems are reviewed and are negative Constitutional: Reports as per HPI and Reports no additional constitutional complaints Eyes: Reports as per HPI and Reports no additional eye complaints Reports system reviewed and no additional complaints, except as documented Cardiovascular: Reports as per HPI and Reports no additional cardiovascular complaints Respiratory: Reports as per HPI and Reports no additional respiratory complaints Gastrointestinal: Reports as per HPI and Reports no additional gastrointestinal complaints Genitourinary: Reports no additional female genitourinary complaints Musculoskeletal: Reports no additional musculoskeletal complaints Skin/Breast: Reports system reviewed and no additional complaints, except as docu Psychiatric: Reports no additional psychiatric complaints Endocrine: Reports no additional endocrine complaints Hematologic/Lymphatic: Reports no additional hematologic/lymphatic complaints Allergic/Immunologic: Reports no additional allergic/immunologic complaints Reports system reviewed and no additional complaints, except as documented and Reports Abnormal speech present [facility] Past Medical History Medical History Abdominal pain Abnormal chest x-ray Acute respiratory failure Aspiration into airway Asthma-COPD overlap syndrome Chronic respiratory failure Chronic respiratory failure Congestive heart failure COPD (chronic obstructive pulmonary disease) COPD exacerbation Diabetes mellitus Essential hypertension Hyperlipidemia, unspecified Hypertensive cardiovascular disease Hypogammaglobulinemia Leukocytosis Limb swelling Morbid obesity Opioid dependence Poor dentition Pulmonary congestion Pulmonary nodule Rib fractures Status asthmaticus with COPD (chronic obstructive pulmonary disease) Tobacco abuse Type 2 diabetes mellitus Type 2 diabetes mellitus with unspecified complications Vomiting Surgical History H/O tubal ligation Family History Family History Father Diabetes Other Asthma Social History Social History Household Members: Unknown / Unable to assess Household Members Other:: 3 Housing: Unknown / Unable to assess Do you presently have visiting nurse or other home services: No Unable to assess alcohol history related to: Unknown Alcohol intake: never Patient Tobacco Use Status: Current someday Tobacco user Tobacco use type: Cigarette Cigarettes Per Day: 1 Years Smoked: 35 e-Cigarette/Vaping Use: Currently Using Second Hand Smoke Exposure: No Use of substances other than those prescribed or required for medical reasons: No Substance Use Type: Opiates Advance Directives: Yes Advance Directives on File: Yes Advance Directives Date on File: 06/12/21 Patient : No service: No Current occupational status: disabled Physical Exam Vital Signs: Vital Signs: Last Vital Signs Temp 98.8 F 12/08/21 09:25 Pulse 96 12/08/21 10:53 Resp 20 12/08/21 10:53 BP 114/54 L 12/08/21 10:53 Pulse Ox 91 L 12/08/21 10:53 O2 Del Method 12/08/21 10:53 O2 Flow Rate 3 12/08/21 10:53 Oxygen Flow Rate 9 12/08/21 09:25 BMI result Body Mass Index 41.5 Vital signs have been reviewed as appeared to be correct. Blood pressure normal. Heart rate normal. Respiration rate normal. Temperature normal. Oxygen saturation normal. Appearance: Apparent respiratory distress, Alert. Oriented X3. No acute distress. Head: Normal external exam. Normocephalic. Atraumatic. No Coffman signs noted. No raccoon eyes noted Eyes: PERRLA. EOMI. Conjunctiva and sclera normal. Eyelids normal. ENT: TM's Normal. Pharynx normal. Uvula midline. Moist mucous membranes. No trismus noted. No drooling noted. No muffled voice noted. Neck: Normal inspection. Neck supple. FROM. No adenopathy. Thyroid Normal. No meningeal signs. No neck mass noted. CVS: Normal heart rate and rhythm. Heart sound normal. No murmurs noted. Pulses normal throughout. Respiratory: Mild respiratory distress. Painless inspiration. Breath sounds normal. Prolonged expiratory wheezing with prolonged expiration, intercostal retraction.. Chest nontender. No accessory muscle usage noted or decreased air movement noted. Abdomen: Soft and nontender. Bowel sounds normal in all 4 quadrants. No distention noted. No organomegaly noted. No visible injury noted. Back: No CVA tenderness. Full range of motion noted. Skin: Skin warm and dry. Normal skin color. Normal skin turgor. No rashes/lesions/lacerations noted. Extremities: No lower extremity edema. Extremities exhibit normal range of motion. Extremities nontender. Neuro: Oriented X 3. Cranial nerve exam: II-XII are grossly intact No motor deficit. No sensory deficit. Reflexes normal. Course Course Course Narrative: 51-year-old female history of COPD with chronic hypercapnia use 3 L of supplemental oxygen at home was having shortness of breath with wheezing and hypoxia at 70% with 3 L at home, patient was brought to the emergency department found to be hypoxic at 67%, recent exposure to a family member who was COVID positive patient tested negative for COVID today, patient was given Solu-Medrol/bronchodilator/magnesium/Levaquin. Patient meet criteria for SIRS but no criteria for severe sepsis or septic shock patient received 1 dose of Levaquin. MDM - SOB/Dyspnea Medical Records Attestation: I reviewed the patient's medical records. Lab Data Attestation: I reviewed the patient's lab results. Result diagrams: 12/08/21 10:15 12/08/21 10:15 Labs: Lab Results 12/08/21 12/08/21 12/08/21 Range/Units 10:15 10:15 10:15 WBC 20.8 H (4.8-10.8) X10*3/uL RBC 4.14 L (4.20-5.50) X10*6/uL Hgb 12.0 (12.0-16.0) g/dl Hct 40.5 (37.0-47.0) % MCV 97.8 (80.0-98.0) fL MCH 29.0 (27.0-33.0) pg MCHC 29.6 L (31.0-35.0) g/dl RDW 13.2 (11.0-16.0) % Plt Count 252 (160-400) X10*3/uL MPV 9.3 L (9.4-12.3) fL Immature Gran % (Auto) 0.8 H (0.0-0.4) % Neut % (Auto) 86.0 H (45-73) % Lymph % (Auto) 7.8 L (20-40) % Wilcox % (Auto) 4.5 (2-11) % Eos % (Auto) 0.6 (0-4) % Baso % (Auto) 0.3 (0-2) % Lymph # (Auto) 1.6 (1.2-4.9) X10*3/uL Wilcox # (Auto) 0.9 (0.1-1.2) X10*3/uL Eos # (Auto) 0.1 (0.0-0.4) X10*3/uL Baso # (Auto) 0.1 (0.0-0.2) X10*3/uL Abs Immat Gran (auto) 0.16 H (0.00-0.03) X10*3/uL Absolute Neuts (auto) 17.9 H (2.0-8.3) x10*3/uL Absolute Nucleated RBC 0.000 (0.0-0.012) X10*3/uL Nucleated RBC % (auto) 0.0 (0.0-0.2) /100WBC Sodium 140 (135-145) mmol/L Potassium 4.0 D (3.3-5.1) mmol/L Chloride 86 L (96-108) mmol/L Carbon Dioxide 43 H* (22-29) mmol/L Anion Gap 15 (12-20) BUN 19 H (9-16) mg/dL Creatinine 0.57 (0.5-1.4) mg/dL Estim Creat Clear Calc 126.4 Estimated GFR > 60 Random Glucose 244 H (60-115) mg/dL Lactic Acid (0.5-2.0) mmol/L Calcium 9.0 D (8.4-10.2) mg/dL Total Bilirubin 0.3 (0.0-1.0) mg/dL Direct Bilirubin 0.2 (0.0-0.5) mg/dL AST 15 (5-31) U/L ALT 20 (0-31) U/L Alkaline Phosphatase 88 (39-117) U/L Troponin I High Sens 21.2 H D (<3.5-17.0) ng/L Total Protein 6.6 (6.5-8.0) g/dL Albumin 3.8 (3.5-5.0) g/dL Lipase 10 (8-78) U/L Influenza Type A (PCR) (Negative) Influenza Type B (PCR) (Negative) RSV RNA Qual (PCR) (Negative) SARS-CoV-2 RNA (RT-PCR) (Negative) 12/08/21 12/08/21 Range/Units 10:15 10:21 WBC (4.8-10.8) X10*3/uL RBC (4.20-5.50) X10*6/uL Hgb (12.0-16.0) g/dl Hct (37.0-47.0) % MCV (80.0-98.0) fL MCH (27.0-33.0) pg MCHC (31.0-35.0) g/dl RDW (11.0-16.0) % Plt Count (160-400) X10*3/uL MPV (9.4-12.3) fL Immature Gran % (Auto) (0.0-0.4) % Neut % (Auto) (45-73) % Lymph % (Auto) (20-40) % Wilcox % (Auto) (2-11) % Eos % (Auto) (0-4) % Baso % (Auto) (0-2) % Lymph # (Auto) (1.2-4.9) X10*3/uL Wilcox # (Auto) (0.1-1.2) X10*3/uL Eos # (Auto) (0.0-0.4) X10*3/uL Baso # (Auto) (0.0-0.2) X10*3/uL Abs Immat Gran (auto) (0.00-0.03) X10*3/uL Absolute Neuts (auto) (2.0-8.3) x10*3/uL Absolute Nucleated RBC (0.0-0.012) X10*3/uL Nucleated RBC % (auto) (0.0-0.2) /100WBC Sodium (135-145) mmol/L Potassium (3.3-5.1) mmol/L Chloride (96-108) mmol/L Carbon Dioxide (22-29) mmol/L Anion Gap (12-20) BUN (9-16) mg/dL Creatinine (0.5-1.4) mg/dL Estim Creat Clear Calc Estimated GFR Random Glucose (60-115) mg/dL Lactic Acid 0.6 (0.5-2.0) mmol/L Calcium (8.4-10.2) mg/dL Total Bilirubin (0.0-1.0) mg/dL Direct Bilirubin (0.0-0.5) mg/dL AST (5-31) U/L ALT (0-31) U/L Alkaline Phosphatase (39-117) U/L Troponin I High Sens (<3.5-17.0) ng/L Total Protein (6.5-8.0) g/dL Albumin (3.5-5.0) g/dL Lipase (8-78) U/L Influenza Type A (PCR) NEGATIVE (Negative) Influenza Type B (PCR) NEGATIVE (Negative) RSV RNA Qual (PCR) NEGATIVE (Negative) SARS-CoV-2 RNA (RT-PCR) NEGATIVE (Negative) Imaging Data Chest x-ray: Attestation: I personally reviewed and interpreted this imaging study as follows: Radiologist's impression: No evidence for acute disease in the chest. Discharge Plan Discharge Clinical Impression: Acute exacerbation of chronic obstructive airways disease Patient Disposition: Admitted As Inpatient
[2021-12-08] MEDS: Albuterol Sulfate (0.083%) 2.5 MG/3 ML VIAL.NEB 7.5 MG INHALE (09:33)
[2021-12-08] MEDS: Albuterol/Iprat 2.5/0.5MG 3 ML AMPUL.NEB INHALE ×4 (09:33→22:52)
[2021-12-08] MEDS: methylPREDNISolone Sod Succ 125 MG/2 ML VIAL IVPUSH (09:46)
[2021-12-08] MEDS: Magnesium Sulfate/H2O 2 GM/50 ML PIGGYBACK IV (09:46)
--- NOTE | 2021-12-08 09:49 | PC.NURSE ---
Skin warm and color appropriate for ethnicity. She has difficulty breathing, labor breathing, respirations 22, using abdominal muscles. bilateral uper lung sounds diminished and wheezing, lower right lung sound absent, left lower diminished. patient on 3L nasal canula.
[2021-12-08 10:28] LABS: MANUAL DIFF FLAG NO
[2021-12-08 10:31] LABS: Basophils Absolute Auto 0.1 X10*3/uL (0.0-0.2); Basophils Percent Auto 0.3 % (0-2); Eosinophils Absolute Auto 0.1 X10*3/uL (0.0-0.4); Eosinophils Percent Auto 0.6 % (0-4); Hematocrit 40.5 % (37.0-47.0); Imm Gran Abs Auto 0.16 X10*3/uL (0.00-0.03); Imm Gran Pct Auto 0.8 % (0.0-0.4); Lymphocytes Absolute Auto 1.6 X10*3/uL (1.2-4.9); Lymphocytes Percent Auto 7.8 % (20-40); Mean Corpuscular HGB Conc 29.6 g/dl (31.0-35.0); Mean Corpuscular Volume 97.8 fL (80.0-98.0); Mean Platelet Volume 9.3 fL (9.4-12.3); Monocytes Absolute Auto 0.9 X10*3/uL (0.1-1.2); Monocytes Percent Auto 4.5 % (2-11); Neutrophils Absolute Auto 17.9 x10*3/uL (2.0-8.3); Platelet Count 252 X10*3/uL (160-400); Red Blood Count 4.14 X10*6/uL (4.20-5.50); Red Cell Distribution Width 13.2 % (11.0-16.0); White Blood Count 20.8 X10*3/uL (4.8-10.8)
[2021-12-08 10:40] LABS: Lactic Acid 0.6 mmol/L (0.5-2.0)
[2021-12-08] MEDS: levoFLOXacin/D5W 750 MG/150 ML PIGGYBACK 100 MG IV (10:47)
[2021-12-08 10:50] LABS: Troponin-I High Sensitivity 21.2 ng/L (<3.5-17.0)
[2021-12-08 10:57] LABS: Alanine Aminotransferase 20 U/L (0-31); Albumin Level 3.8 g/dL (3.5-5.0); Alkaline Phosphatase 88 U/L (39-117); Anion Gap 15 (12-20); Aspartate Amino Transferase 15 U/L (5-31); Bilirubin Direct 0.2 mg/dL (0.0-0.5); Bilirubin Total 0.3 mg/dL (0.0-1.0); Blood Urea Nitrogen 19 mg/dL (9-16); Carbon Dioxide 43 mmol/L (22-29); Chloride 86 mmol/L (96-108); Creatinine Clr Calc Pharmacy 126.4; Estimated Glomerular Filt Rate > 60; Glucose Random 244 mg/dL (60-115); Lipase 10 U/L (8-78); Sodium 140 mmol/L (135-145); Total Protein 6.6 g/dL (6.5-8.0)
[2021-12-08 11:10] LABS: Influenza A PCR NEGATIVE (Negative); Influenza B PCR NEGATIVE (Negative); Resp Syncy Virus RNA Qual PCR NEGATIVE (Negative); SARS COV2 PCR INHOUSE NEGATIVE (Negative)
[2021-12-08] MEDS: Enoxaparin Sodium 40 MG/0.4 ML SYRINGE SUBCUT (15:08)
[2021-12-08] MEDS: hydrALAZINE HCl 25 MG TABLET PO ×2 (15:08→22:19)
--- NOTE | 2021-12-08 15:11 | P.HPHOSP_ITS ---
History of Present Illness Date of Service: 12/08/21 Attending physician on admission: Marielos Guillermo Chief Complaint: sob 51-year-old woman with a past medical history of asthma COPD overlap syndrome, chronic? hypercarbic and hypoxic respiratory failure currently on 2l via [place] home oxygen,also uses bipap at home,? diabetes mellitus, hypertension, hyperlipidemia, tobacco use, and Hypogammaglobulinemia on IVIG,? opioid dependence on methadone?-patient been having shortness of breath and wheezing since this morning, [facility] called EMS on arrival patient was satting 70% with 3 L of oxygen that she normally wear, patient was given bronchodilator and transported to the hospital.?intially in apparent shortness of breath, unable to speak in full sentence, with diffuse wheezing.? She has some cough with mostly whitish sputum chronically. Patient was given nebs, steroids and antibiotic in the ED but patient still short of breath with talking and hypoxic. has previous hx of using bipap and ICu admission for intubation. has one episode of question of vomiting, feel nauseated but no abdominal pain or diarrhea Denies any new complaint of chest pain or abdominal pain or fever or chills Denies any weakness or numbness. Lab imaging , EKG reviewed: Leukocytosis Bicarb elevated EKG -please see below in EKG section. Chest x-ray negative Review of Systems Review of Systems: as above. [facility] Medical History Abdominal pain Abnormal chest x-ray Acute respiratory failure Aspiration into airway Asthma-COPD overlap syndrome Chronic respiratory failure Chronic respiratory failure Congestive heart failure COPD (chronic obstructive pulmonary disease) COPD exacerbation Diabetes mellitus Essential hypertension Hyperlipidemia, unspecified Hypertensive cardiovascular disease Hypogammaglobulinemia Leukocytosis Limb swelling Morbid obesity Opioid dependence Poor dentition Pulmonary congestion Pulmonary nodule Rib fractures Status asthmaticus with COPD (chronic obstructive pulmonary disease) Tobacco abuse Type 2 diabetes mellitus Type 2 diabetes mellitus with unspecified complications Vomiting Family History Father Diabetes Other Asthma Surgical History H/O tubal ligation Social History Household Members: Unknown / Unable to assess Household Members Other:: 3 Housing: Unknown / Unable to assess Do you presently have visiting nurse or other home services: No Unable to assess alcohol history related to: Unknown Alcohol intake: never Patient Tobacco Use Status: Current someday Tobacco user Tobacco use type: Cigarette Cigarettes Per Day: 1 Years Smoked: 35 e-Cigarette/Vaping Use: Currently Using Second Hand Smoke Exposure: No Use of substances other than those prescribed or required for medical reasons: No Substance Use Type: Opiates Advance Directives: Yes Advance Directives on File: Yes Advance Directives Date on File: 06/12/21 Patient : No service: No Current occupational status: disabled Meds Allergies Allergy/AdvReac Type Severity Reaction Status Date / Time No Known Allergies Allergy Verified 12/05/21 15:32 [No Known Allergies*] Active Medications: Current Medications Albuterol Sulfate (Albuterol Sulfate 90 Mcg 8 Gm Inhaler) 2 puff INHALE Q4H PRN PRN Reason: Shortness Of Breath Or Wheezing Albuterol/Ipratropium (Albuterol/Iprat 2.5/0.5mg 3 Ml Ampul.Neb) 3 ml INHALE RQ4H ANA Albuterol/Ipratropium (Albuterol/Iprat 2.5/0.5mg 3 Ml Ampul.Neb) 3 ml INHALE Q3H PRN PRN Reason: Shortness of Breath Atorvastatin Calcium (Atorvastatin Calcium 20 Mg Tablet) 20 mg PO BEDTIME [facility] Dextrose (Dextrose 50 % 25 Gm/50 Ml Syringe) 25 gm IVPUSH Q15M PRN; Protocol PRN Reason: per Hypoglycemia Standing Ord. Diclofenac Sodium (Diclofenac Sodium Delayed Rel 50 Mg Tablet.Dr) 50 mg PO BID [facility] Diltiazem HCl (Diltiazem Hcl Cd 180 Mg Cap.Er.24h) 360 mg PO DAILY [facility]; Protocol Enoxaparin Sodium (Enoxaparin Sodium 40 Mg/0.4 Ml Syringe) 40 mg SUBCUT Q24H [facility] Last Admin: 12/08/21 15:08 Dose: 40 mg Ergocalciferol (Ergocalciferol (Vitamin D2) 1,250 Mcg Capsule) 1,250 mcg PO Sa [facility] Gabapentin (Gabapentin 300 Mg Capsule) 300 mg PO BID [facility] Glucose (Glucose Gel 15 Gm Gel..Gram.) 15 gm PO Q15M PRN; Protocol PRN Reason: per Hypoglycemia Standing Ord. Hydralazine HCl (Hydralazine Hcl 25 Mg Tablet) 25 mg PO TID [facility]; Protocol Last Admin: 12/08/21 15:08 Dose: 25 mg Insulin Glargine (Insulin Glargine,Hum.Rec.Anlog 100 Unit/Ml 10 Ml Vial) 45 unit SUBCUT BEDTIME [facility] Insulin Human Lispro (Insulin Lispro 100 Unit/Ml 3 Ml Vial) 0 unit SUBCUT QIDACHS [facility]; Protocol Levofloxacin (Levofloxacin 500 Mg Tablet) 500 mg PO DAILY [facility] Lidocaine (Lidocaine 4 % Patch Adh..Patch) 1 patch TRANSDERMA DAILY [facility] Lisinopril (Lisinopril 40 Mg Tablet) 40 mg PO DAILY [facility]; Protocol Loratadine (Loratadine 10 Mg Tablet) 10 mg PO DAILY [facility] Methadone HCl (Methadone Hcl 20 Mg/2 Ml Oral.Conc) 50 mg PO DAILY@0900 ONE Stop: 12/09/21 09:01 Methadone HCl (Methadone Hcl 20 Mg/2 Ml Oral.Conc) 50 mg PO DAILY@0900 [facility] Methylprednisolone Sodium Succinate (Methylprednisolone Sod Succ 40 Mg/Ml Vial) 40 mg IVPUSH Q8H [facility] Montelukast Sodium (Montelukast Sodium 10 Mg Tablet) 10 mg PO BEDTIME [facility] Non-Formulary Medication (Budesonide) 0.5 mg INHALE BID [facility] Non-Formulary Medication (Glecaprevir-Pibrentasvir [Mavyret]) 3 tab PO DAILY [facility] Non-Formulary Medication (Roflumilast [Daliresp]) 1 tab PO DAILY [facility] Omeprazole (Omeprazole 40 Mg Capsule.Dr) 40 mg PO DAILY@0630 [facility] Ondansetron HCl (Ondansetron Odt 4 Mg Tab.Rapdis) 4 mg TRANSLINGU Q6H PRN PRN Reason: nausea and vomiting Pharmacy Consult (Consult Rx Perform Med Rec) 1 each MISCELLANE ONCE PRN PRN Reason: Consult order Sodium Chloride (0.9 % Sodium Chloride Flush 3 Ml Syringe) 3 ml IVFLUSH QSHIFT [facility] Home Medications Medication Instructions Recorded Confirmed Last Taken Type albuterol sulfate 90 mcg/actuation 2 puff inhalation Q4H PRN 12/30/19 12/08/21 02/21/21 History aerosol inhaler (ProAir HFA) Shortness Of Breath Or Wheezing loratadine 10 mg tablet (Claritin) 10 mg PO DAILY 10/12/08/21 02/21/21 History montelukast 10 mg tablet 10 mg PO BEDTIME 12/30/19 12/08/21 02/20/21 History diltiazem HCl 360 mg capsule,24 1 cap PO DAILY 11/16/20 12/08/21 02/21/21 History hr,extended release (Tiadylt ER) roflumilast 500 mcg tablet 1 tab PO DAILY 11/16/20 12/08/21 02/21/21 History (Daliresp) rosuvastatin 5 mg tablet 1 tab PO BEDTIME 11/16/20 12/08/21 02/20/21 History insulin lispro 100 unit/mL See Protocol subcut TIDAC 12/14/20 12/08/21 02/21/21 History subcutaneous solution (Humalog U-100 Insulin) metformin 500 mg tablet,extended 2 tab PO BID 05/18/21 12/08/21 Unknown History release 24 hr ergocalciferol (vitamin D2) 1,250 1,250 mcg PO QWEEK 06/06/21 12/08/21 Unknown History mcg (50,000 unit) capsule methadone 10 mg/mL oral concentrate 49 mg PO DAILY 06/06/21 09/24/21 07/30/21 History insulin glargine 100 unit/mL 45 unit subcut BEDTIME 06/07/21 12/08/21 Unknown History subcutaneous solution (Lantus U-100 Insulin) lisinopril 40 mg tablet 1 tab PO DAILY 07/30/21 12/08/21 Unknown History glecaprevir 100 mg-pibrentasvir 40 3 tab PO DAILY 11/02/21 12/08/21 Unknown History mg tablet (Mavyret) hydralazine 25 mg tablet 1 tab PO TID 11/02/21 12/08/21 Unknown History insulin lispro 100 unit/mL 4 unit subcut TIDAC 11/02/21 12/08/21 Unknown History subcutaneous solution omeprazole 40 mg capsule,delayed 40 mg PO DAILY@0630 11/02/21 12/08/21 Unknown History release lidocaine 5 % topical patch 1 patch topical DAILY 12/08/21 12/08/21 Unknown History (Lidoderm) Physical Exam Vital Signs and Narrative: Vital Signs: Last Vital Signs Temp 98.8 F 12/08/21 09:25 Pulse 98 12/08/21 14:59 Resp 20 12/08/21 14:59 BP 97/38 L 12/08/21 14:59 Pulse Ox 87 L 12/08/21 14:59 O2 Del Method 12/08/21 14:59 O2 Flow Rate 4 12/08/21 14:59 Oxygen Flow Rate 9 12/08/21 09:25 BMI result Body Mass Index 41.5 ? mild respiratory distress with talking Alert and oriented x3 and nonfocal neurologically Bilateral expiratory wheezing otherwise poor bilateral breath sounds Abdomen is obese with no organomegaly and nontender, bs present,norebound or guarding chest: rrr,s1s2 heard ext: pulses present , no cyanosis skin: no rash or swelling Results Labs CBC and Chem 7: 12/08/21 10:15 12/08/21 10:15 Labs: Laboratory Results - last 24 hr 12/08/21 12/08/21 12/08/21 10:15 10:15 10:15 MCV 97.8 MCH 29.0 MCHC 29.6 L RDW 13.2 Plt Count 252 MPV 9.3 L Immature Gran % (Auto) 0.8 H Neut % (Auto) 86.0 H Lymph % (Auto) 7.[address] [place] % (Auto) 4.5 Eos % (Auto) 0.6 Baso % (Auto) 0.3 Lymph # (Auto) 1.6 [place] # (Auto) 0.9 Eos # (Auto) 0.1 Baso # (Auto) 0.1 Abs Immat Gran (auto) 0.16 H Absolute Neuts (auto) 17.9 H Absolute Nucleated RBC 0.000 Nucleated RBC % (auto) 0.0 Anion Gap 15 Estim Creat Clear Calc 126.4 Estimated GFR > 60 Random Glucose 244 H Lactic Acid 0.6 Calcium 9.0 D Total Bilirubin 0.3 Direct Bilirubin 0.2 AST 15 ALT 20 Alkaline Phosphatase 88 Total Protein 6.6 Albumin 3.8 Lipase 10 Influenza Type A (PCR) Influenza Type B (PCR) RSV RNA Qual (PCR) SARS-CoV-2 RNA (RT-PCR) 12/08/21 10:21 MCV MCH MCHC RDW Plt Count MPV Immature Gran % (Auto) Neut % (Auto) Lymph % (Auto) [place] % (Auto) Eos % (Auto) Baso % (Auto) Lymph # (Auto) [place] # (Auto) Eos # (Auto) Baso # (Auto) Abs Immat Gran (auto) Absolute Neuts (auto) Absolute Nucleated RBC Nucleated RBC % (auto) Anion Gap Estim Creat Clear Calc Estimated GFR Random Glucose Lactic Acid Calcium Total Bilirubin Direct Bilirubin AST ALT Alkaline Phosphatase Total Protein Albumin Lipase Influenza Type A (PCR) NEGATIVE Influenza Type B (PCR) NEGATIVE RSV RNA Qual (PCR) NEGATIVE SARS-CoV-2 RNA (RT-PCR) NEGATIVE ECG Attestation: I personally reviewed and interpreted this ECG as follows: (nsr, some pvc's) Imaging Radiologist's Impressions: Impressions Chest X-Ray 12/08/21 09:45 IMPRESSION: No evidence for acute disease in the chest. Assessment and Plan (1) Acute exacerbation of chronic obstructive airways disease: Status: Acute (2) Acute on chronic respiratory failure with hypoxia and hypercapnia: Status: Acute (3) Alkalosis: Status: Acute Plan 51-year-old lady with underlying morbid obesity, asthma/ COPD overlap syndrome, obesity hypoventilation, on 2 L of supplemental oxygen, nocturnal BiPAP hypogammaglobulinemia on IVIG, opioid dependence on methadone, diabetes mellitus, hypertension, admitted on 06/06/2021 with dyspnea and hypoxia .? Acute on chronic hypoxic hypercapnic respiratory failure secondary to COPD exacerbation. Tachycardia and tachypnea possibly related to COPD , no sepsis. ? Leukocytosis probably related to on and off steroid use, added procalcitonin levels. VBG noted-ph maintained ,hypercarbic , COVID pending Patient started on steroids, nebs, antibiotics, oxygen support to keep sats around 92 range Added pulmonary evaluation, if patient condition worsen may need to repeat ABG and need to consider ICU evaluation. Traction alkalosis Secondary to hypoxic hypercapnic respiratory failure Follow BMP DM:?( previous admission in may-was on metformin/sliding scale) Monitor fingersticks with sliding scale coverage. ?Opioid dependence continue methadone Hypertension: ?continue Cardizem, hold lisinopril nausea ,1 episode vomiting: no other abd symptoms symptomatic management-continue antiemetics Morbid obesity: Encouraged to cut down calories, consider outpatient bariatric evaluation. DVT PPX Lovenox inpatient admitted ? acute on chronic hypoxic hypercapnic respiratory failure secondary to COPD exacerbation-needs IV steroid, oxygen support and nebs, IV antibiotic: May need 2 midnight stays. Above management discussed the patient in detail length she understand and in agreement with the above plan, time spent 70 minute, patient full code. Quality Stroke Does the patient have a stroke diagnosis?: No VTE Prior VTE?: No VTE Risk Level:: Medical - moderate - high VTE Device Contraindication: N/A - Device Ordered VTE Drug Contraindication: N/A - Med Ordered
[2021-12-08] MEDS: methylPREDNISolone Sod Succ 40 MG/ML VIAL IVPUSH ×2 (15:12→22:20)
--- NOTE | 2021-12-08 15:19 | PC.NURSE ---
Patient skin warm and color adequate for ethnicity. breathing has improved, not as labored, lung sounds still diminished but audible is upper and lower, wheezing still present with fine crackles in bases.
[2021-12-08] MEDS: 0.9 % Sodium Chloride Flush 3 ML SYRINGE IVFLUSH ×2 (15:28→22:08)
[2021-12-08 15:51] LABS: VBG Base Excess 21.7 mmol/L; VBG HCO3 52 mmol/L (22-26); VBG pCO2 90 mmHg; VBG pH 7.36 (7.32-7.43); VBG pO2 68 mmHg
[2021-12-08 15:55] LABS: Venous Blood Gas Refer to POC result
[2021-12-08 17:06] LABS: Procalcitonin 0.03 ng/mL
[2021-12-08 18:08] LABS: Glucose, Whole Blood 356 mg/dL (60-115)
[2021-12-08] MEDS: Insulin Lispro 100 UNIT/ML 3 ML VIAL SUBCUT ×2 (18:34→22:20)
--- NOTE | 2021-12-08 18:55 | PC.NURSE ---
report given to imc rn
[2021-12-08 22:10] LABS: Glucose, Whole Blood 265 mg/dL (60-115)
[2021-12-08] MEDS: Diclofenac Sodium Delayed Rel 50 MG TABLET.DR PO (22:19)
[2021-12-08] MEDS: Montelukast Sodium 10 MG TABLET PO (22:20)
[2021-12-08] MEDS: Atorvastatin Calcium 20 MG TABLET PO (22:20)
[2021-12-08] MEDS: Gabapentin 300 MG CAPSULE PO (22:20)
[2021-12-08] MEDS: Insulin Glargine,Hum.rec.anlog 100 UNIT/ML 10 ML VIAL 45 UNIT SUBCUT (22:21)
[2021-12-09] VITALS (10 sets, daily range): BP systolic 112–148; BP diastolic 63–76; PULSE 80–105; RESP 18–22; TEMP 36.1–37.2; O2SAT 92–98
[2021-12-09] MEDS: Albuterol/Iprat 2.5/0.5MG 3 ML AMPUL.NEB INHALE ×6 (03:16→23:12)
[2021-12-09] MEDS: Omeprazole 40 MG CAPSULE.DR PO (05:34)
[2021-12-09] MEDS: methylPREDNISolone Sod Succ 40 MG/ML VIAL IVPUSH ×3 (05:34→21:02)
[2021-12-09 07:21] LABS: Glucose, Whole Blood 189 mg/dL (60-115)
[2021-12-09] MEDS: Insulin Lispro 100 UNIT/ML 3 ML VIAL SUBCUT ×4 (08:09→21:02)
[2021-12-09] MEDS: methADONE HCl 20 MG/2 ML ORAL.CONC 50 MG PO (08:09)
[2021-12-09] MEDS: hydrALAZINE HCl 25 MG TABLET PO ×3 (08:10→21:02)
[2021-12-09] MEDS: 0.9 % Sodium Chloride Flush 3 ML SYRINGE IVFLUSH ×2 (08:10→16:44)
[2021-12-09] MEDS: Loratadine 10 MG TABLET PO (08:10)
[2021-12-09] MEDS: Gabapentin 300 MG CAPSULE PO ×2 (08:10→21:02)
[2021-12-09] MEDS: Diclofenac Sodium Delayed Rel 50 MG TABLET.DR PO ×2 (08:10→21:02)
[2021-12-09] MEDS: Lidocaine 4 % Patch ADH..PATCH 1 PATCH TRANSDERMA (08:11)
[2021-12-09] MEDS: dilTIAZem HCL CD 180 MG CAP.ER.24H 360 MG PO (08:11)
[2021-12-09] MEDS: lisinopriL 40 MG TABLET PO (08:11)
[2021-12-09] MEDS: levoFLOXacin 500 MG TABLET PO (08:11)
[2021-12-09 08:27] LABS: Hematocrit 40.2 % (37.0-47.0); Hemoglobin 12.7 g/dl (12.0-16.0); Mean Corpuscular HGB Conc 31.6 g/dl (31.0-35.0); Mean Corpuscular Hemoglobin 29.5 pg (27.0-33.0); Mean Corpuscular Volume 93.5 fL (80.0-98.0); Mean Platelet Volume 9.2 fL (9.4-12.3); Platelet Count 246 X10*3/uL (160-400); Red Cell Distribution Width 12.9 % (11.0-16.0); White Blood Count 20.9 X10*3/uL (4.8-10.8)
[2021-12-09] MEDS: acetaZOLAMIDE 250 MG TABLET PO (08:31)
[2021-12-09 08:42] LABS: Anion Gap 18 (12-20); Blood Urea Nitrogen 16 mg/dL (9-16); Calcium 9.1 mg/dL (8.4-10.2); Carbon Dioxide 38 mmol/L (22-29); Chloride 88 mmol/L (96-108); Creatinine Clr Calc Pharmacy 118.2; Estimated Glomerular Filt Rate > 60; Glucose Random 256 mg/dL (60-115); Potassium 4.5 mmol/L (3.3-5.1); Sodium 139 mmol/L (135-145)
[2021-12-09 09:18] LABS: Venous Blood Gas Refer to POC result
[2021-12-09 09:19] LABS: VBG Base Excess 25.7 mmol/L; VBG HCO3 53 mmol/L (22-26); VBG pCO2 63 mmHg; VBG pH 7.53 (7.32-7.43); VBG pO2 133 mmHg
[2021-12-09 11:35] LABS: Glucose, Whole Blood 241 mg/dL (60-115)
--- NOTE | 2021-12-09 12:12 | PM.CNPUL ---
History of Present Illness History of Present Illness Consult date: 12/09/21 Chief complaint: copd excerebation Narrative: This is an inpatient pulmonary consultation. The patient is a 51-year-old woman with a past medical history of asthma COPD overlap syndrome, chronic? hypercarbic and hypoxic respiratory failure currently on 2l via [place] home oxygen,also uses NIV at home,? diabetes mellitus, hypertension, hyperlipidemia, tobacco use, and Hypogammaglobulinemia on IVIG,? opioid dependence on methadone?-patient been having shortness of breath and wheezing since this morning, [facility] called EMS on arrival patient was satting 70% with 3 L of oxygen that she normally wear, patient was given bronchodilator and transported to the hospital.?intially? in apparent shortness of breath, unable to speak in full sentence, with diffuse wheezing.? She has some cough with mostly whitish sputum chronically. Patient was given nebs, steroids and antibiotic in the ED but patient still short of breath with talking and hypoxic. has previous hx of using bipap and ICu admission for intubation. Her venough gas demonstrated elevated PCO2 from baseline. Placed on BIPAP 18/5, now PCO down to 63 mmHg. The patient is feeling a little better. Review of Systems Review of Systems: All other systems are reviewed and are negative Constitutional: Reports as per HPI and Reports no additional constitutional complaints Eyes: Reports as per HPI and Reports no additional eye complaints Reports system reviewed and no additional complaints, except as documented Cardiovascular: Reports as per HPI and Reports no additional cardiovascular complaints Respiratory: Reports as per HPI and Reports no additional respiratory complaints Gastrointestinal: Reports as per HPI and Reports no additional gastrointestinal complaints Genitourinary: Reports no additional female genitourinary complaints Musculoskeletal: Reports no additional musculoskeletal complaints Skin/Breast: Reports system reviewed and no additional complaints, except as docu Psychiatric: Reports no additional psychiatric complaints Endocrine: Reports no additional endocrine complaints Hematologic/Lymphatic: Reports no additional hematologic/lymphatic complaints Allergic/Immunologic: Reports no additional allergic/immunologic complaints Reports system reviewed and no additional complaints, except as documented and Reports Abnormal speech present [facility] Past Medical History Medical History Abdominal pain Abnormal chest x-ray Acute respiratory failure Aspiration into airway Asthma-COPD overlap syndrome Chronic respiratory failure Chronic respiratory failure Congestive heart failure COPD (chronic obstructive pulmonary disease) COPD exacerbation Diabetes mellitus Essential hypertension Hyperlipidemia, unspecified Hypertensive cardiovascular disease Hypogammaglobulinemia Leukocytosis Limb swelling Morbid obesity Opioid dependence Poor dentition Pulmonary congestion Pulmonary nodule Rib fractures Status asthmaticus with COPD (chronic obstructive pulmonary disease) Tobacco abuse Type 2 diabetes mellitus Type 2 diabetes mellitus with unspecified complications Vomiting Family History Family History Father Diabetes Other Asthma Surgical History Surgical History H/O tubal ligation Social History Social History Household Members: Children Household Members Other:: 3 Housing: Apartment Do you presently have visiting nurse or other home services: Yes Unable to assess alcohol history related to: Unknown Alcohol intake: never Patient Tobacco Use Status: Former Tobacco user Tobacco use type: Cigarette Cigarettes Per Day: 1 Years Smoked: 35 e-Cigarette/Vaping Use: Currently Using Second Hand Smoke Exposure: No Substance Use Type: Opiates Advance Directives Date on File: 06/12/21 service: No Current occupational status: disabled Meds Allergies Allergy/AdvReac Type Severity Reaction Status Date / Time No Known Allergies Allergy Verified 12/05/21 15:32 [No Known Allergies*] Active Medications: Current Medications Albuterol Sulfate (Albuterol Sulfate 90 Mcg 8 Gm Inhaler) 2 puff INHALE Q4H PRN PRN Reason: Shortness Of Breath Or Wheezing Albuterol/Ipratropium (Albuterol/Iprat 2.5/0.5mg 3 Ml Ampul.Neb) 3 ml INHALE RQ4H [facility] Last Admin: 12/09/21 11:50 Dose: 3 ml Albuterol/Ipratropium (Albuterol/Iprat 2.5/0.5mg 3 Ml Ampul.Neb) 3 ml INHALE Q3H PRN PRN Reason: Shortness of Breath Atorvastatin Calcium (Atorvastatin Calcium 20 Mg Tablet) 20 mg PO BEDTIME [facility] Last Admin: 12/08/21 22:20 Dose: 20 mg Dextrose (Dextrose 50 % 25 Gm/50 Ml Syringe) 25 gm IVPUSH Q15M PRN; Protocol PRN Reason: per Hypoglycemia Standing Ord. Diclofenac Sodium (Diclofenac Sodium Delayed Rel 50 Mg Tablet.Dr) 50 mg PO BID [facility] Last Admin: 12/09/21 08:10 Dose: 50 mg Diltiazem HCl (Diltiazem Hcl Cd 180 Mg Cap.Er.24h) 360 mg PO DAILY [facility]; Protocol Last Admin: 12/09/21 08:11 Dose: 360 mg Enoxaparin Sodium (Enoxaparin Sodium 40 Mg/0.4 Ml Syringe) 40 mg SUBCUT Q24H [facility] Last Admin: 12/08/21 15:08 Dose: 40 mg Ergocalciferol (Ergocalciferol (Vitamin D2) 1,250 Mcg Capsule) 1,250 mcg PO Sa [facility] Gabapentin (Gabapentin 300 Mg Capsule) 300 mg PO BID [facility] Last Admin: 12/09/21 08:10 Dose: 300 mg Glucose (Glucose Gel 15 Gm Gel..Gram.) 15 gm PO Q15M PRN; Protocol PRN Reason: per Hypoglycemia Standing Ord. Hydralazine HCl (Hydralazine Hcl 25 Mg Tablet) 25 mg PO TID [facility]; Protocol Last Admin: 12/09/21 08:10 Dose: 25 mg Promethazine HCl 6.25 mg/ (Sodium Chloride) 50.25 mls @ 201 mls/hr IV Q6H PRN PRN Reason: Nausea Last Infusion: 12/08/21 22:50 Dose: Infused Insulin Glargine (Insulin Glargine,Hum.Rec.Anlog 100 Unit/Ml 10 Ml Vial) 45 unit SUBCUT BEDTIME [facility] Last Admin: 12/08/21 22:21 Dose: 45 unit Insulin Human Lispro (Insulin Lispro 100 Unit/Ml 3 Ml Vial) 0 unit SUBCUT QIDACHS [facility]; Protocol Last Admin: 12/09/21 11:39 Dose: 4 unit Levofloxacin (Levofloxacin 500 Mg Tablet) 500 mg PO DAILY [facility] Last Admin: 12/09/21 08:11 Dose: 500 mg Lidocaine (Lidocaine 4 % Patch Adh..Patch) 1 patch TRANSDERMA DAILY [facility] Last Admin: 12/09/21 08:11 Dose: 1 patch Lisinopril (Lisinopril 40 Mg Tablet) 40 mg PO DAILY [facility]; Protocol Last Admin: 12/09/21 08:11 Dose: 40 mg Loratadine (Loratadine 10 Mg Tablet) 10 mg PO DAILY [facility] Last Admin: 12/09/21 08:10 Dose: 10 mg Methadone HCl (Methadone Hcl 20 Mg/2 Ml Oral.Conc) 50 mg PO DAILY@0900 [facility] Methylprednisolone Sodium Succinate (Methylprednisolone Sod Succ 40 Mg/Ml Vial) 40 mg IVPUSH Q8H [facility] Last Admin: 12/09/21 11:40 Dose: 40 mg Montelukast Sodium (Montelukast Sodium 10 Mg Tablet) 10 mg PO BEDTIME [facility] Last Admin: 12/08/21 22:20 Dose: 10 mg Non-Formulary Medication (Budesonide) 0.5 mg INHALE BID [facility] Non-Formulary Medication (Glecaprevir-Pibrentasvir [Mavyret]) 3 tab PO DAILY [facility] Non-Formulary Medication (Roflumilast [Daliresp]) 1 tab PO DAILY [facility] Omeprazole (Omeprazole 40 Mg Capsule.Dr) 40 mg PO DAILY@0630 [facility] Last Admin: 12/09/21 05:34 Dose: 40 mg Ondansetron HCl (Ondansetron Odt 4 Mg Tab.Rapdis) 4 mg TRANSLINGU Q6H PRN PRN Reason: nausea and vomiting Pharmacy Consult (Consult Rx Perform Med Rec) 1 each MISCELLANE ONCE PRN PRN Reason: Consult order Sodium Chloride (0.9 % Sodium Chloride Flush 3 Ml Syringe) 3 ml IVFLUSH QSHIFT [facility] Last Admin: 12/09/21 08:10 Dose: 3 ml Home Medications Medication Instructions Recorded Confirmed Last Taken Type albuterol sulfate 90 mcg/actuation 2 puff inhalation Q4H PRN 12/30/19 12/08/21 02/21/21 History aerosol inhaler (ProAir HFA) Shortness Of Breath Or Wheezing loratadine 10 mg tablet (Claritin) 10 mg PO DAILY 12/30/19 12/08/21 02/21/21 History montelukast 10 mg tablet 10 mg PO BEDTIME 12/30/19 12/08/21 02/20/21 History diltiazem HCl 360 mg capsule,24 1 cap PO DAILY 11/16/20 12/08/21 02/21/21 History hr,extended release (Tiadylt ER) roflumilast 500 mcg tablet 1 tab PO DAILY 11/16/20 12/08/21 02/21/21 History (Daliresp) rosuvastatin 5 mg tablet 1 tab PO BEDTIME 11/16/20 12/08/21 02/20/21 History insulin lispro 100 unit/mL See Protocol subcut TIDAC 12/14/20 12/08/21 02/21/21 History subcutaneous solution (Humalog U-100 Insulin) metformin 500 mg tablet,extended 2 tab PO BID 05/18/21 12/08/21 Unknown History release 24 hr ergocalciferol (vitamin D2) 1,250 1,250 mcg PO QWEEK 06/06/21 12/08/21 Unknown History mcg (50,000 unit) capsule methadone 10 mg/mL oral concentrate 49 mg PO DAILY 06/06/21 09/24/21 07/30/21 History insulin glargine 100 unit/mL 45 unit subcut BEDTIME 06/07/21 12/08/21 Unknown History subcutaneous solution (Lantus U-100 Insulin) lisinopril 40 mg tablet 1 tab PO DAILY 07/30/21 12/08/21 Unknown History glecaprevir 100 mg-pibrentasvir 40 3 tab PO DAILY 11/02/21 12/08/21 Unknown History mg tablet (Mavyret) hydralazine 25 mg tablet 1 tab PO TID 11/02/21 12/08/21 Unknown History insulin lispro 100 unit/mL 4 unit subcut TIDAC 11/02/21 12/08/21 Unknown History subcutaneous solution omeprazole 40 mg capsule,delayed 40 mg PO DAILY@0630 11/02/21 12/08/21 Unknown History release lidocaine 5 % topical patch 1 patch topical DAILY 12/08/21 12/08/21 Unknown History (Lidoderm) Physical Exam Vital Signs: Vital Signs: Last Vital Signs Temp 97.2 F 12/09/21 08:00 Pulse 102 H 12/09/21 08:00 Resp 22 H 12/09/21 08:00 BP 139/65 12/09/21 08:00 Pulse Ox 93 12/09/21 08:00 O2 Del Method 12/09/21 08:00 O2 Flow Rate 2.5 12/09/21 08:00 FiO2 35 12/09/21 03:41 Oxygen Flow Rate 9 12/08/21 09:25 BMI result Body Mass Index 41.5 Appearance: Apparent respiratory distress, Alert. Oriented X3. No acute distress. Head: Normal external exam. Normocephalic. Atraumatic. No Coffman signs noted. +cushinoid Eyes: PERRLA. EOMI. Conjunctiva and sclera normal. Eyelids normal. ENT: TM's Normal. Pharynx normal. Uvula midline. Moist mucous membranes. No trismus noted. No drooling noted. No muffled voice noted. Neck: Normal inspection. Neck supple. FROM. No adenopathy. Thyroid Normal. No meningeal signs. No neck mass noted. CVS: Normal heart rate and rhythm. Heart sound normal. No murmurs noted. Pulses normal throughout. Respiratory: Very dimished breath sounds Prolonged expiratory wheezing with prolonged expiration, intercostal retraction.. Chest nontender. No accessory muscle usage noted or decreased air movement noted. Abdomen: Soft and nontender. Bowel sounds normal in all 4 quadrants. No distention noted. No organomegaly noted. No visible injury noted. Back: No CVA tenderness. Full range of motion noted. Skin: Skin warm and dry. Normal skin color. Normal skin turgor. No rashes/lesions/lacerations noted. Extremities: No lower extremity edema. Extremities exhibit normal range of motion. Extremities nontender. Neuro: Oriented X 3. Cranial nerve exam: II-XII are grossly intact No motor deficit. No sensory deficit. Reflexes normal. Results Laboratory Findings CBC and BMP: 12/09/21 08:20 12/09/21 08:20 Abnormal lab findings: Abnormal Labs 12/08/21 12/08/21 12/08/21 10:15 10:15 10:15 WBC 20.8 H RBC 4.14 L MCHC 29.6 L MPV 9.3 L Immature Gran % (Auto) 0.8 H Neut % (Auto) 86.0 H Lymph % (Auto) 7.8 L Abs Immat Gran (auto) 0.16 H Absolute Neuts (auto) 17.9 H VBG pH VBG HCO3 Chloride 86 L Carbon Dioxide 43 H* BUN 19 H POC Glucose Random Glucose 244 H Troponin I High Sens 21.2 H D 12/08/21 12/08/21 12/08/21 15:33 18:04 22:04 WBC RBC MCHC MPV Immature Gran % (Auto) Neut % (Auto) Lymph % (Auto) Abs Immat Gran (auto) Absolute Neuts (auto) VBG pH VBG HCO3 52 H Chloride Carbon Dioxide BUN POC Glucose 356 H* 265 H Random Glucose Troponin I High Sens 12/09/21 12/09/21 12/09/21 07:16 08:20 08:20 WBC 20.9 H RBC MCHC MPV 9.2 L Immature Gran % (Auto) Neut % (Auto) Lymph % (Auto) Abs Immat Gran (auto) Absolute Neuts (auto) VBG pH VBG HCO3 Chloride 88 L Carbon Dioxide 38 H BUN POC Glucose 189 H Random Glucose 256 H Troponin I High Sens 12/09/21 12/09/21 09:04 11:31 WBC RBC MCHC MPV Immature Gran % (Auto) Neut % (Auto) Lymph % (Auto) Abs Immat Gran (auto) Absolute Neuts (auto) VBG pH 7.53 H VBG HCO3 53 H Chloride Carbon Dioxide BUN POC Glucose 241 H Random Glucose Troponin I High Sens Assessment and Plan (1) Acute exacerbation of chronic obstructive airways disease: Status: Acute (2) Acute on chronic respiratory failure with hypoxia and hypercapnia: Status: Acute Plan recommend switching to PO prednisone tomorrow please recheck VBG requested theophiline levels, if low will adjust Continue BIPAP 01/08, will be reqyesting to adjust her home AVAP continue oxygen supplementation Has an outpt f/u next week with pulmonary Procedures Date of Service Date of Service: 12/09/21
[2021-12-09] MEDS: Enoxaparin Sodium 40 MG/0.4 ML SYRINGE SUBCUT (13:47)
--- NOTE | 2021-12-09 13:58 | P.PNIM_ITS ---
Subjective Subjective Date of Service: 12/09/21 Interval History: copd excerebation Review of Systems Still shortness of breath slight somewhat better than yesterday But gets short of breath with minimal exertion Denies any chest pain or abdominal pain no fevers Physical Exam Vital Signs: Vital Signs: Last Vital Signs Temp 97.0 F 12/09/21 12:00 Pulse 105 H 12/09/21 12:00 Resp 22 H 12/09/21 12:00 BP 131/70 12/09/21 12:00 Pulse Ox 92 12/09/21 12:00 O2 Del Method 12/09/21 12:00 O2 Flow Rate 2.5 12/09/21 12:00 FiO2 35 12/09/21 03:41 Oxygen Flow Rate 9 12/08/21 09:25 BMI result Body Mass Index 41.5 mild respiratory distress with talking Alert and oriented x3 and nonfocal neurologically Bilateral expiratory wheezing otherwise poor bilateral breath sounds Abdomen is obese with no organomegaly and nontender, bs present,norebound or guarding chest: rrr,s1s2 heard ext: pulses present , no cyanosis skin: no rash or swelling ? Objective Data Active Medications Albuterol Sulfate (Albuterol Sulfate 90 Mcg 8 Gm Inhaler) 2 puff INHALE Q4H PRN PRN Reason: Shortness Of Breath Or Wheezing Albuterol/Ipratropium (Albuterol/Iprat 2.5/0.5mg 3 Ml Ampul.Neb) 3 ml INHALE RQ4H [facility] Last Admin: 12/09/21 11:50 Dose: 3 ml Documented By: RAHEL Albuterol/Ipratropium (Albuterol/Iprat 2.5/0.5mg 3 Ml Ampul.Neb) 3 ml INHALE Q3H PRN PRN Reason: Shortness of Breath Atorvastatin Calcium (Atorvastatin Calcium 20 Mg Tablet) 20 mg PO BEDTIME [facility] Last Admin: 12/08/21 22:20 Dose: 20 mg Documented By: ANTOIC Dextrose (Dextrose 50 % 25 Gm/50 Ml Syringe) 25 gm IVPUSH Q15M PRN; Protocol PRN Reason: per Hypoglycemia Standing Ord. Diclofenac Sodium (Diclofenac Sodium Delayed Rel 50 Mg Tablet.) 50 mg PO BID [facility] Last Admin: 12/09/21 08:10 Dose: 50 mg Documented By: STONEY Diltiazem HCl (Diltiazem Hcl Cd 180 Mg Cap.Er.24h) 360 mg PO DAILY [facility]; Mireya col Last Admin: 12/09/21 08:11 Dose: 360 mg Documented By: STONEY Enoxaparin Sodium (Enoxaparin Sodium 40 Mg/0.4 Ml Syringe) 40 mg SUBCUT Q24H [facility] Last Admin: 12/09/21 13:47 Dose: 40 mg Documented By: STONEY Ergocalciferol (Ergocalciferol (Vitamin D2) 1,250 Mcg Capsule) 1,250 mcg PO Sa [facility] Gabapentin (Gabapentin 300 Mg Capsule) 300 mg PO BID [facility] Last Admin: 12/09/21 08:10 Dose: 300 mg Documented By: STONEY Glucose (Glucose Gel 15 Gm Gel..Gram.) 15 gm PO Q15M PRN; Protocol PRN Reason: per Hypoglycemia Standing Ord. Hydralazine HCl (Hydralazine Hcl 25 Mg Tablet) 25 mg PO TID [facility]; Protocol Last Admin: 12/09/21 13:46 Dose: 25 mg Documented By: STONEY Promethazine HCl 6.25 mg/ (Sodium Chloride) 50.25 mls @ 201 mls/hr IV Q6H PRN PRN Reason: Nausea Last Infusion: 12/08/21 22:50 Dose: 0 mls/hr Documented By: CARIDAD Insulin Glargine (Insulin Glargine,Hum.Rec.Anlog 100 Unit/Ml 10 Ml Vial) 45 unit SUBCUT BEDTIME [facility] Last Admin: 12/08/21 22:21 Dose: 45 unit Documented By: CARIDAD Insulin Human Lispro (Insulin Lispro 100 Unit/Ml 3 Ml Vial) 0 unit SUBCUT QIDACHS [facility]; Protocol Last Admin: 12/09/21 11:39 Dose: 4 unit Documented By: STONEY Levofloxacin (Levofloxacin 500 Mg Tablet) 500 mg PO DAILY [facility] Last Admin: 12/09/21 08:11 Dose: 500 mg Documented By: STONEY Lidocaine (Lidocaine 4 % Patch Adh..Patch) 1 patch TRANSDERMA DAILY [facility] Last Admin: 12/09/21 08:11 Dose: 1 patch Documented By: STONEY Lisinopril (Lisinopril 40 Mg Tablet) 40 mg PO DAILY [facility]; Protocol Last Admin: 12/09/21 08:11 Dose: 40 mg Documented By: STONEY Loratadine (Loratadine 10 Mg Tablet) 10 mg PO DAILY [facility] Last Admin: 12/09/21 08:10 Dose: 10 mg Documented By: STONEY Methadone HCl (Methadone Hcl 20 Mg/2 Ml Oral.Conc) 50 mg PO DAILY@0900 [facility] Methylprednisolone Sodium Succinate (Methylprednisolone Sod Succ 40 Mg/Ml Vial) 40 mg IVPUSH Q8H [facility] Last Admin: 12/09/21 11:40 Dose: 40 mg Documented By: STONEY Montelukast Sodium (Montelukast Sodium 10 Mg Tablet) 10 mg PO BEDTIME [facility] Last Admin: 12/08/21 22:20 Dose: 10 mg Documented By: ANTOIC Non-Formulary Medication (Budesonide) 0.5 mg INHALE BID [facility] Non-Formulary Medication (Glecaprevir-Pibrentasvir [Mavyret]) 3 tab PO DAILY [facility] Non-Formulary Medication (Roflumilast [Daliresp]) 1 tab PO DAILY [facility] Omeprazole (Omeprazole 40 Mg Capsule.Dr) 40 mg PO DAILY@0630 [facility] Last Admin: 12/09/21 05:34 Dose: 40 mg Documented By: HORACE Ondansetron HCl (Ondansetron Odt 4 Mg Tab.Rapdis) 4 mg TRANSLINGU Q6H PRN PRN Reason: nausea and vomiting Pharmacy Consult (Consult Rx Perform Med Rec) 1 each MISCELLANE ONCE PRN PRN Reason: Consult order Sodium Chloride (0.9 % Sodium Chloride Flush 3 Ml Syringe) 3 ml IVFLUSH QSHIFT [facility] Last Admin: 12/09/21 08:10 Dose: 3 ml Documented By: STONEY Labs CBC & Chem 7: 12/09/21 08:20 12/09/21 08:20 Labs: Laboratory Results - last 24 hr 12/08/21 12/08/21 12/08/21 10:15 15:33 18:04 MCV MCH MCHC RDW Plt Count MPV Absolute Nucleated RBC Nucleated RBC % (auto) VBG pH 7.36 VBG pCO2 90 VBG pO2 68 VBG HCO3 52 H VBG O2 Saturation 91.0 VBG Base Excess 21.7 Anion Gap Estim Creat Clear Calc Estimated GFR POC Glucose 356 H* Random Glucose Calcium Procalcitonin 0.03 12/08/21 12/09/21 12/09/21 22:04 07:16 08:20 MCV 93.5 MCH 29.5 MCHC 31.6 RDW 12.9 Plt Count 246 MPV 9.2 L Absolute Nucleated RBC 0.000 Nucleated RBC % (auto) 0.0 VBG pH VBG pCO2 VBG pO2 VBG HCO3 VBG O2 Saturation VBG Base Excess Anion Gap Estim Creat Clear Calc Estimated GFR POC Glucose 265 H 189 H Random Glucose Calcium Procalcitonin 12/09/21 12/09/21 12/09/21 08:20 09:04 11:31 MCV MCH MCHC RDW Plt Count MPV Absolute Nucleated RBC Nucleated RBC % (auto) VBG pH 7.53 H VBG pCO2 63 VBG pO2 133 VBG HCO3 53 H VBG O2 Saturation 100.0 VBG Base Excess 25.7 Anion Gap 18 Estim Creat Clear Calc 118.2 Estimated GFR > 60 POC Glucose 241 H Random Glucose 256 H Calcium 9.1 Procalcitonin Microbiology Microbiology Results: Microbiology 12/08/21 10:21 Blood Culture - Preliminary Blood - Venous No growth after 24 hours. 12/08/21 10:14 Blood Culture - Preliminary Blood - Venous No growth after 24 hours. Assessment and Plan (1) Alkalosis: Status: Acute (2) Acute exacerbation of chronic obstructive airways disease: Status: Acute (3) Acute on chronic respiratory failure with hypoxia and hypercapnia: Status: Acute Plan 51-year-old lady with underlying morbid obesity, asthma/ COPD overlap syndrome, obesity hypoventilation, on 2 L of supplemental oxygen, nocturnal BiPAP hypogammaglobulinemia on IVIG, opioid dependence on methadone, diabetes mellitus, hypertension, admitted on 06/06/2021 with dyspnea and hypoxia .? Acute on chronic hypoxic hypercapnic respiratory failure secondary to COPD exacerbation. Tachycardia and tachypnea possibly related to COPD , no sepsis. ?? Leukocytosis probably related to on and off steroid use, procalcitonin levels normal. VBG noted-ph maintained ,hypercarbic improving , COVID pending Patient started on steroids, nebs, antibiotics, oxygen support to keep sats around 92 range Added pulmonary evaluation, if patient condition worsen may need to repeat ABG and need to consider ICU evaluation. Traction alkalosis: improving Secondary to hypoxic hypercapnic respiratory failure Follow BMP DM:?( previous admission in may-was on metformin/sliding scale) Monitor fingersticks with sliding scale coverage. ?Opioid dependence continue methadone Hypertension: ?continue Cardizem, hold lisinopril nausea ,1 episode vomiting: no other abd symptoms symptomatic management-continue antiemetics Morbid obesity: Encouraged to cut down calories, weightloss . DVT PPX Lovenox ?inpatient need: ? acute on chronic hypoxic hypercapnic respiratory failure secondary to COPD exacerbation-needs IV steroid, oxygen support and nebs, IV antibiotic. Quality Stroke Does the patient have a stroke diagnosis?: No VTE Prior VTE?: No VTE Risk Level:: Medical - moderate - high VTE Device Contraindication: N/A - Device Ordered VTE Drug Contraindication: N/A - Med Ordered
[2021-12-09 15:18] LABS: COVID-19 Test Negative (Negative); IDNOW Serial# 55D5AD1C
[2021-12-09 16:08] LABS: Glucose, Whole Blood 196 mg/dL (60-115)
[2021-12-09 19:46] LABS: Glucose, Whole Blood 339 mg/dL (60-115)
[2021-12-09] MEDS: Atorvastatin Calcium 20 MG TABLET PO (21:02)
[2021-12-09] MEDS: Insulin Glargine,Hum.rec.anlog 100 UNIT/ML 10 ML VIAL 45 UNIT SUBCUT (21:02)
[2021-12-09] MEDS: Montelukast Sodium 10 MG TABLET PO (21:03)
[2021-12-09 22:46] LABS: Theophylline 4.1 MG/L ((10-20))
[2021-12-10] VITALS (11 sets, daily range): BP systolic 126–167; BP diastolic 70–83; PULSE 79–105; RESP 15–20; TEMP 36.3–36.8; O2SAT 91–100
[2021-12-10] MEDS: Albuterol/Iprat 2.5/0.5MG 3 ML AMPUL.NEB INHALE ×5 (04:21→19:17)
[2021-12-10] MEDS: methylPREDNISolone Sod Succ 40 MG/ML VIAL IVPUSH (05:16)
[2021-12-10] MEDS: 0.9 % Sodium Chloride Flush 3 ML SYRINGE IVFLUSH ×3 (05:18→15:38)
[2021-12-10] MEDS: Omeprazole 40 MG CAPSULE.DR PO (05:18)
[2021-12-10 06:19] LABS: Anion Gap 20 (12-20); Blood Urea Nitrogen 26 mg/dL (9-16); Calcium 8.7 mg/dL (8.4-10.2); Carbon Dioxide 25 mmol/L (22-29); Chloride 99 mmol/L (96-108); Creatinine Clr Calc Pharmacy 118.2; Estimated Glomerular Filt Rate > 60; Glucose Random 181 mg/dL (60-115); Potassium 4.7 mmol/L (3.3-5.1); Sodium 139 mmol/L (135-145)
[2021-12-10 07:30] LABS: Glucose, Whole Blood 165 mg/dL (60-115)
[2021-12-10 08:12] LABS: Hematocrit 39.7 % (37.0-47.0); Hemoglobin 12.3 g/dl (12.0-16.0); Mean Corpuscular Hemoglobin 29.2 pg (27.0-33.0); Mean Corpuscular Volume 94.3 fL (80.0-98.0); Mean Platelet Volume 9.5 fL (9.4-12.3); Platelet Count 269 X10*3/uL (160-400); Red Blood Count 4.21 X10*6/uL (4.20-5.50); Red Cell Distribution Width 13.2 % (11.0-16.0); White Blood Count 24.1 X10*3/uL (4.8-10.8)
[2021-12-10] MEDS: dilTIAZem HCL CD 180 MG CAP.ER.24H 360 MG PO (08:44)
[2021-12-10] MEDS: Diclofenac Sodium Delayed Rel 50 MG TABLET.DR PO ×2 (08:44→20:28)
[2021-12-10] MEDS: hydrALAZINE HCl 25 MG TABLET PO ×3 (08:44→20:28)
[2021-12-10] MEDS: levoFLOXacin 500 MG TABLET PO (08:44)
[2021-12-10] MEDS: lisinopriL 40 MG TABLET PO (08:45)
[2021-12-10] MEDS: Loratadine 10 MG TABLET PO (08:45)
[2021-12-10] MEDS: Gabapentin 300 MG CAPSULE PO ×2 (08:45→20:29)
[2021-12-10] MEDS: Insulin Lispro 100 UNIT/ML 3 ML VIAL SUBCUT ×4 (08:45→20:27)
[2021-12-10] MEDS: Lidocaine 4 % Patch ADH..PATCH 1 PATCH TRANSDERMA (08:46)
[2021-12-10] MEDS: methADONE HCl 20 MG/2 ML ORAL.CONC 50 MG PO (09:43)
--- NOTE | 2021-12-10 10:28 | P.DS_ITS ---
DS: Providers Provider Date of Service: 12/10/21 Date of admission: 12/08/21 12:54 Primary care physician: Kelli Benavides MD Consults: 12/08/21 15:39 Consult to Pulmonology Routine Consulting Provider: [facility] Pulmonology Services Reason for consultation: Acute hypoxemic and hypercarbic respiratory failure secondary to COPD. Has provider been notified: No DS: Diagnosis Discharge Diagnosis (1) Alkalosis: Status: Acute (2) Acute exacerbation of chronic obstructive airways disease: Status: Acute (3) Acute on chronic respiratory failure with hypoxia and hypercapnia: Status: Acute DS: Summary Hospital Course Hospital Course: Chief Complaint: sob 51-year-old woman with a past medical history of asthma COPD overlap syndrome, chronic? hypercarbic and hypoxic respiratory failure currently on 2l via [place] home oxygen,also uses bipap at home,? diabetes mellitus, hypertension, hyperlipidemia, tobacco use, and Hypogammaglobulinemia on IVIG,? opioid dependence on methadone?-patient been having shortness of breath and wheezing since this morning, [employer] called EMS on arrival patient was satting 70% with 3 L of oxygen that she normally wear, patient was given bronchodilator and transported to the hospital.?intially? in apparent shortness of breath, unable to speak in full sentence, with diffuse wheezing.? She has some cough with mostly whitish sputum chronically. Patient was given nebs, steroids and antibiotic in the ED but patient still short of breath with talking and hypoxic. has previous hx of using bipap and ICu admission for intubation. has one episode of question of vomiting, feel nauseated but no abdominal pain or? diarrhea Denies any new complaint of chest pain or? abdominal pain or fever or chills Denies any weakness or numbness. Lab imaging , EKG reviewed: Leukocytosis Bicarb elevated EKG -please see below in EKG section. Chest x-ray negative Hospital course: She was admitted yet again for acute on chronic respiratory failure due to exacerbation of copd with leukocytosis which likely due to chronic steroid use, she had episode of tachyardia which likely from albuterol, anxiety and was not due to sepsis. Her treatment has consisted of IV steroid, bronchodilators by Neb, Levaquin for presumed bronchitis. She is afebrile, covid negative. She presently has no repsitary difficulty at all, breathing easy, will discuss no smoking she say she has not being. At this point she feels comfortable going home, she alert oriented to self place and time and has no sing of CO2 narcosis. Repeat CBC can be done on outpatient basis continue all other prior meds Time Spent with Patient Time attestation: Total time spent providing and/or coordinating discharge services: Discharge coordination time: Greater than 30 minutes Quality: Safe Use of Opioids Does Pt have an Active Cancer Diagnosis on the Problem List?: No Quality: Stroke Does the patient have a stroke diagnosis?: No Physical Exam Vital Signs: Vital Signs: Last Vital Signs Temp 98.2 F 12/10/21 07:39 Pulse 100 12/10/21 07:46 Resp 19 12/10/21 07:46 BP 133/79 12/10/21 07:39 Pulse Ox 98 12/10/21 07:39 O2 Del Method 12/10/21 07:39 O2 Flow Rate 2 12/09/21 19:11 FiO2 35 12/10/21 07:39 Oxygen Flow Rate 9 12/08/21 09:25 BMI result Body Mass Index 41.5 ?? mild respiratory distress with talking Alert and oriented x3 and nonfocal neurologically air entry improved, no wheezing or rales. Abdomen is obese with no organomegaly and nontender, bs present,norebound or guarding chest: rrr,s1s2 heard ext: pulses present , no cyanosis skin: no rash or swelling DS: Data Data Completed and Pending Completed studies during hospitalization [Text1]: Procedures Assistance with Respiratory Ventilation, 24-96 Consecutive Hours, Continuous Po sitive Airway Pressure (05/18/21) Assistance with Respiratory Ventilation, Less than 24 Consecutive Hours, Continuous Positive Airway Pressure (09/23/21) Insertion of Endotracheal Airway into Trachea, Via Natural or Artificial Opening (11/02/21) Insertion of Infusion Device into Superior Vena Cava, Percutaneous Approach (11/02/21) Respiratory Ventilation, 24-96 Consecutive Hours (11/02/21) Ultrasonography of Superior Vena Cava, Guidance (11/02/21) Labs on day of discharge: Laboratory Results - last 24 hr 12/09/21 12/09/21 12/09/21 11:31 12:45 14:31 WBC RBC Hgb Hct MCV MCH MCHC RDW Plt Count MPV Absolute Nucleated RBC Nucleated RBC % (auto) Sodium Potassium Chloride Carbon Dioxide Anion Gap BUN Creatinine Estim Creat Clear Calc Estimated GFR POC Glucose 241 H Random Glucose Calcium Theophylline 4.1 L COVID-19 (PAPO) Negative COVID-19 Clin Com See Note 12/09/21 12/09/21 12/10/21 16:05 19:38 05:35 WBC RBC Hgb Hct MCV MCH MCHC RDW Plt Count MPV Absolute Nucleated RBC Nucleated RBC % (auto) Sodium 139 Potassium 4.7 Chloride 99 Carbon Dioxide 25 Anion Gap 20 BUN 26 H D Creatinine 0.61 Estim Creat Clear Calc 118.2 Estimated GFR > 60 POC Glucose 196 H 339 H Random Glucose 181 H Calcium 8.7 Theophylline COVID-19 (PAPO) COVID-19 Clin Com 12/10/21 12/10/21 07:24 07:29 WBC 24.1 H RBC 4.21 Hgb 12.3 Hct 39.7 MCV 94.3 MCH 29.2 MCHC 31.0 RDW 13.2 Plt Count 269 MPV 9.5 Absolute Nucleated RBC 0.000 Nucleated RBC % (auto) 0.0 Sodium Potassium Chloride Carbon Dioxide Anion Gap BUN Creatinine Estim Creat Clear Calc Estimated GFR POC Glucose 165 H Random Glucose Calcium Theophylline COVID-19 (PAPO) COVID-19 Clin Com Preliminary micro results at discharge 12/08/21 10:21 Blood Culture - Preliminary Blood - Venous No growth after 24 hours. 12/08/21 10:14 Blood Culture - Preliminary Blood - Venous No growth after 24 hours. Discharge Plan Discharge Anticipated Discharge Date/Time: 12/11/21 12:53 Patient Disposition: Home Health Service Discharge Diagnosis: Acute hypoxemic and hypercarbic respiratory failure secondary to copd excerebation Referrals: janee fofana [Other] - 1 Week Kelli Benavides MD [Primary Care Provider] - 1 Week Discharge Medications: New prednisone 20 mg tablet 40 mg PO DAILY 4 Days Qty: 8 0RF levofloxacin 500 mg Tablet 500 mg PO DAILY Qty: 2 0RF Continued Spiriva with HandiHaler 18 mcg capsule, w/inhalation device 1 cap inhalation DAILY Qty: 30 11RF gabapentin 300 mg capsule 300 mg PO BID 30 Days Qty: 60 3RF diclofenac potassium 50 mg tablet 50 mg PO BID 30 Days Qty: 60 0RF diltiazem HCl [Tiadylt ER] 360 mg capsule,extended release 24 hr 1 cap PO DAILY rosuvastatin 5 mg tablet 1 tab PO BEDTIME Daliresp 500 mcg tablet 1 tab PO DAILY insulin lispro [Humalog U-100 Insulin] 100 unit/mL solution See Protocol subcut TIDAC Protocol: Insulin Correction Scale Less than or equal to 110 ---- Give (units): 0 111 to 150 Give (units): 0 151 to 200 Give (units): 2 201 to 250 Give (units): 4 251 to 300 Give (units): 6 301 to 350 Give (units): 8 Greater than 350 Give (units): 10 Call MD if Blood Glucose > : 350 metformin 500 mg tablet extended release 24 hr 2 tab PO BID hydralazine 25 mg tablet 1 tab PO TID insulin lispro 100 unit/mL solution 4 unit subcut TIDAC Mavyret 100-40 mg tablet 3 tab PO DAILY omeprazole 40 mg capsule,delayed release(DR/EC) 40 mg PO DAILY@0630 methadone 10 mg/mL Concentrate 49 mg PO DAILY ergocalciferol (vitamin D2) 1,250 mcg (50,000 unit) capsule 1,250 mcg PO QWEEK insulin glargine [Lantus U-100 Insulin] 100 unit/mL solution 45 unit subcut BEDTIME lisinopril 40 mg tablet 1 tab PO DAILY ondansetron 4 mg tablet,disintegrating 4 mg PO Q6-8H PRN (Reason: nausea and vomiting) Qty: 14 0RF lidocaine [Lidoderm] 5 % adhesive patch,medicated 1 patch topical DAILY montelukast 10 mg tablet 10 mg PO BEDTIME albuterol sulfate [ProAir HFA] 90 mcg/actuation HFA aerosol inhaler 2 puff inhalation Q4H PRN (Reason: Shortness Of Breath Or Wheezing) loratadine [Claritin] 10 mg tablet 10 mg PO DAILY Brovana 15 mcg/2 mL solution for nebulization 2 ml inhalation Q12H 30 Days Qty: 120 11RF budesonide 0.5 mg/2 mL suspension for nebulization 0.5 mg inhalation BID Qty: 120 11RF No Action doxycycline hyclate 100 mg capsule 100 mg PO BID 10 Days Qty: 20 0RF ipratropium-albuterol 0.5 mg-3 mg(2.5 mg base)/3 mL solution for nebulization 3 ml PO Q4H PRN (Reason: for wheezing) Qty: 540 6RF bupropion HCl 75 mg tablet 150 mg PO BID 30 Days Qty: 120 3RF theophylline 450 mg tablet extended release 12 hr 450 mg PO Q12H 30 Days Qty: 60 6RF prednisone 10 mg tablet 30 mg PO DAILY 30 Days Qty: 90 0RF Discharge Orders: Discharge Order (Routine); Ordered 12/11/21 Ordered By: Joao Meehan Diet: Advance to usual diet Activity on Discharge: As tolerated Stand Alone Forms: Patient Portal Discharge page Other Ambulatory Orders: Complete Blood Count no Diff (Routine) Timeframe: 1 Week Facility: [facility] - Location: Laboratory Ordered By: Joao Meehan Care Plan Goals: Full recovery from exacerbation of acute on chronic respriatory failure due to copd Health Concerns: Chronic respriatory failure, copd, Plan of Treatment: take prednisone, use inhalers and use cpapa machine as directed Don't smoke Assessment: as above Discharge Date/Time: 12/11/21 13:27
[2021-12-10 11:27] LABS: Glucose, Whole Blood 261 mg/dL (60-115)
--- NOTE | 2021-12-10 12:39 | HO.PM.IMPN ---
Subjective Subjective Date of Service: 12/10/21 Interval History: copd excerebation, elevated leucocytosis Review of Systems Still shortness of breath slight somewhat better than yesterday,leucocytosis trending up Denies any chest pain or abdominal pain or fevers Physical Exam Vital Signs: Vital Signs: Last Vital Signs Temp 98 F 12/10/21 12:00 Pulse 90 12/10/21 12:00 Resp 18 12/10/21 12:00 BP 143/71 H 12/10/21 12:00 Pulse Ox 94 12/10/21 12:00 O2 Del Method 12/10/21 12:00 O2 Flow Rate 2.5 12/10/21 12:00 FiO2 35 12/10/21 07:39 Oxygen Flow Rate 9 12/08/21 09:25 BMI result Body Mass Index 41.5 mild respiratory distress with talking Alert and oriented x3 and nonfocal neurologically Bilateral expiratory wheezing otherwise poor bilateral breath sounds Abdomen is obese with no organomegaly and nontender, bs present,norebound or guarding chest: rrr,s1s2 heard ext: pulses present , no cyanosis skin: no rash or swelling ? Objective Data Active Medications Albuterol Sulfate (Albuterol Sulfate 90 Mcg 8 Gm Inhaler) 2 puff INHALE Q4H PRN PRN Reason: Shortness Of Breath Or Wheezing Albuterol/Ipratropium (Albuterol/Iprat 2.5/0.5mg 3 Ml Ampul.Neb) 3 ml INHALE RQ4H [facility] Last Admin: 12/10/21 11:49 Dose: 3 ml Documented By: BI Albuterol/Ipratropium (Albuterol/Iprat 2.5/0.5mg 3 Ml Ampul.Neb) 3 ml INHALE Q3H PRN PRN Reason: Shortness of Breath Atorvastatin Calcium (Atorvastatin Calcium 20 Mg Tablet) 20 mg PO BEDTIME [facility] Last Admin: 12/09/21 21:02 Dose: 20 mg Documented By: GARRISON Dextrose (Dextrose 50 % 25 Gm/50 Ml Syringe) 25 gm IVPUSH Q15M PRN; Protocol PRN Reason: per Hypoglycemia Standing Ord. Diclofenac Sodium (Diclofenac Sodium Delayed Rel 50 Mg Tablet.) 50 mg PO BID [facility] Last Admin: 12/10/21 08:44 Dose: 50 mg Documented By: ALICIA Diltiazem HCl (Diltiazem Hcl Cd 180 Mg Cap.Er.24h) 360 mg PO DAILY [facility]; Protocol Last Admin: 12/10/21 08:44 Dose: 360 mg Documented By: ALICIA Enoxaparin Sodium (Enoxaparin Sodium 40 Mg/0.4 Ml Syringe) 40 mg SUBCUT Q24H [facility] Last Admin: 12/09/21 13:47 Dose: 40 mg Documented By: STONEY Ergocalciferol (Ergocalciferol (Vitamin D2) 1,250 Mcg Capsule) 1,250 mcg PO [facility] Gabapentin (Gabapentin 300 Mg Capsule) 300 mg PO BID [facility] Last Admin: 12/10/21 08:45 Dose: 300 mg Documented By: ALICIA Glucose (Glucose Gel 15 Gm Gel..Gram.) 15 gm PO Q15M PRN; Protocol PRN Reason: per Hypoglycemia Standing Ord. Hydralazine HCl (Hydralazine Hcl 25 Mg Tablet) 25 mg PO TID [facility]; Protocol Last Admin: 12/10/21 08:44 Dose: 25 mg Documented By: ALICIA Promethazine HCl 6.25 mg/ (Sodium Chloride) 50.25 mls @ 201 mls/hr IV Q6H PRN PRN Reason: Nausea Last Infusion: 12/08/21 22:50 Dose: 0 mls/hr Documented By: ANTOIC Insulin Glargine (Insulin Glargine,Hum.Rec.Anlog 100 Unit/Ml 10 Ml Vial) 45 unit SUBCUT BEDTIME [facility] Last Admin: 12/09/21 21:02 Dose: 45 unit Documented By: GARRISON Insulin Human Lispro (Insulin Lispro 100 Unit/Ml 3 Ml Vial) 0 unit SUBCUT QIDACHS [facility]; Protocol Last Admin: 12/10/21 11:52 Dose: 6 unit Documented By: ALICIA Levofloxacin (Levofloxacin 500 Mg Tablet) 500 mg PO DAILY [facility] Last Admin: 12/10/21 08:44 Dose: 500 mg Documented By: ALICIA Lidocaine (Lidocaine 4 % Patch Adh..Patch) 1 patch TRANSDERMA DAILY [facility] Last Admin: 12/10/21 08:46 Dose: 1 patch Documented By: ALICIA Lisinopril (Lisinopril 40 Mg Tablet) 40 mg PO DAILY [facility]; Protocol Last Admin: 12/10/21 08:45 Dose: 40 mg Documented By: ALICIA Loratadine (Loratadine 10 Mg Tablet) 10 mg PO DAILY [facility] Last Admin: 12/10/21 08:45 Dose: 10 mg Documented By: ALICIA Methadone HCl (Methadone Hcl 20 Mg/2 Ml Oral.Conc) 50 mg PO DAILY@0900 [facility] Last Admin: 12/10/21 09:43 Dose: 50 mg Documented By: ALICIA Montelukast Sodium (Montelukast Sodium 10 Mg Tablet) 10 mg PO BEDTIME [facility] Last Admin: 12/09/21 21:03 Dose: 10 mg Documented By: GARRISON Non-Formulary Medication (Budesonide) 0.5 mg INHALE BID [facility] Non-Formulary Medication (Glecaprevir-Pibrentasvir [Mavyret]) 3 tab PO DAILY [facility] Non-Formulary Medication (Roflumilast [Daliresp]) 1 tab PO DAILY [facility] Omeprazole (Omeprazole 40 Mg Capsule.Dr) 40 mg PO DAILY@0630 [facility] Last Admin: 12/10/21 05:18 Dose: 40 mg Documented By: GARRISON Ondansetron HCl (Ondansetron Odt 4 Mg Tab.Rapdis) 4 mg TRANSLINGU Q6H PRN PRN Reason: nausea and vomiting Pharmacy Consult (Consult Rx Perform Med Rec) 1 each MISCELLANE ONCE PRN PRN Reason: Consult order Prednisone (Prednisone 20 Mg Tablet) 40 mg PO DAILY [facility] Sodium Chloride (0.9 % Sodium Chloride Flush 3 Ml Syringe) 3 ml IVFLUSH QSHIFT [facility] Last Admin: 12/10/21 08:45 Dose: 3 ml Documented By: ALICIA Labs CBC & Chem 7: 12/10/21 07:29 12/10/21 05:35 Labs: Laboratory Results - last 24 hr 12/09/21 12/09/21 12/09/21 12:45 14:31 16:05 MCV MCH MCHC RDW Plt Count MPV Absolute Nucleated RBC Nucleated RBC % (auto) Anion Gap Estim Creat Clear Calc Estimated GFR POC Glucose 196 H Random Glucose Calcium Theophylline 4.1 L COVID-19 (PAPO) Negative COVID-19 Clin Com See Note 12/09/21 12/10/21 12/10/21 19:38 05:35 07:24 MCV MCH MCHC RDW Plt Count MPV Absolute Nucleated RBC Nucleated RBC % (auto) Anion Gap 20 Estim Creat Clear Calc 118.2 Estimated GFR > 60 POC Glucose 339 H 165 H Random Glucose 181 H Calcium 8.7 Theophylline COVID-19 (PAPO) COVID-19 Clin Com 12/10/21 12/10/21 07:29 11:23 MCV 94.3 MCH 29.2 MCHC 31.0 RDW 13.2 Plt Count 269 MPV 9.5 Absolute Nucleated RBC 0.000 Nucleated RBC % (auto) 0.0 Anion Gap Estim Creat Clear Calc Estimated GFR POC Glucose 261 H Random Glucose Calcium Theophylline COVID-19 (PAPO) COVID-19 Clin Com Microbiology Microbiology Results: Microbiology 12/08/21 10:14 Blood Culture - Preliminary Blood - Venous No growth after 48 hours. 12/08/21 10:21 Blood Culture - Preliminary Blood - Venous No growth after 48 hours. Assessment and Plan (1) Alkalosis: Status: Acute (2) Acute exacerbation of chronic obstructive airways disease: Status: Acute (3) Acute on chronic respiratory failure with hypoxia and hypercapnia: Status: Acute Plan 51-year-old lady with underlying morbid obesity, asthma/ COPD overlap syndrome, obesity hypoventilation, on 2 L of supplemental oxygen, nocturnal BiPAP hypogammaglobulinemia on IVIG, opioid dependence on methadone, diabetes mellitus, hypertension, admitted on 06/06/2021 with dyspnea and hypoxia .? Acute on chronic hypoxic hypercapnic respiratory failure secondary to COPD exacerbation. Tachycardia and tachypnea possibly related to COPD , no sepsis. ?? Leukocytosis probably related to on and off steroid use, procalcitonin levels normal. VBG noted-ph maintained ,hypercarbic improving , COVID neg Patient started on steroids, nebs, antibiotics, oxygen support to keep sats around 92 range Added pulmonary evaluation, if patient condition worsen may need to repeat ABG and need to consider ICU evaluation. Leukocytosis trending up, blood culture pending, no fevers-continue current management. Monitor CBC Discussed with pulmonary-plan to start Differin outpatient. Traction alkalosis: improved. Secondary to hypoxic hypercapnic respiratory failure Follow BMP DM:?( previous admission in may-was on metformin/sliding scale) Monitor fingersticks with sliding scale coverage. ?Opioid dependence continue methadone Hypertension: ?continue Cardizem, hold lisinopril nausea ,1 episode vomiting: no other abd symptoms symptomatic management-continue antiemetics Morbid obesity: Encouraged to cut down calories, weightloss . DVT PPX Lovenox ?inpatient need: ? acute on chronic hypoxic hypercapnic respiratory failure secondary to COPD exacerbation,,worsening leucocytosis , blood cultures pending-needs IV steroid, oxygen support and nebs, IV antibiotic. Quality Stroke Does the patient have a stroke diagnosis?: No VTE Prior VTE?: No VTE Risk Level:: Medical - moderate - high VTE Device Contraindication: N/A - Device Ordered VTE Drug Contraindication: N/A - Med Ordered
[2021-12-10] MEDS: Enoxaparin Sodium 40 MG/0.4 ML SYRINGE SUBCUT (15:37)
[2021-12-10 16:02] LABS: Glucose, Whole Blood 165 mg/dL (60-115)
[2021-12-10 20:20] LABS: Glucose, Whole Blood 278 mg/dL (60-115)
[2021-12-10] MEDS: Insulin Glargine,Hum.rec.anlog 100 UNIT/ML 10 ML VIAL 45 UNIT SUBCUT (20:27)
[2021-12-10] MEDS: Montelukast Sodium 10 MG TABLET PO (20:28)
[2021-12-10] MEDS: Atorvastatin Calcium 20 MG TABLET PO (20:28)
[2021-12-11] VITALS (7 sets, daily range): BP systolic 132–153; BP diastolic 76–81; PULSE 80–102; RESP 16–20; TEMP 36.1–36.4; O2SAT 95–100
[2021-12-11] MEDS: Albuterol/Iprat 2.5/0.5MG 3 ML AMPUL.NEB INHALE ×4 (00:38→11:22)
[2021-12-11] MEDS: Omeprazole 40 MG CAPSULE.DR PO (05:28)
[2021-12-11] MEDS: 0.9 % Sodium Chloride Flush 3 ML SYRINGE IVFLUSH (05:28)
[2021-12-11 06:19] LABS: Hematocrit 40.8 % (37.0-47.0); Hemoglobin 12.8 g/dl (12.0-16.0); Mean Corpuscular HGB Conc 31.4 g/dl (31.0-35.0); Mean Corpuscular Hemoglobin 29.5 pg (27.0-33.0); Mean Platelet Volume 8.9 fL (9.4-12.3); Platelet Count 273 X10*3/uL (160-400); Red Blood Count 4.34 X10*6/uL (4.20-5.50); Red Cell Distribution Width 13.5 % (11.0-16.0); White Blood Count 19.2 X10*3/uL (4.8-10.8)
[2021-12-11 07:38] LABS: Glucose, Whole Blood 119 mg/dL (60-115)
[2021-12-11] MEDS: Lidocaine 4 % Patch ADH..PATCH 1 PATCH TRANSDERMA (08:23)
[2021-12-11] MEDS: Diclofenac Sodium Delayed Rel 50 MG TABLET.DR PO (08:24)
[2021-12-11] MEDS: lisinopriL 40 MG TABLET PO (08:24)
[2021-12-11] MEDS: levoFLOXacin 500 MG TABLET PO (08:24)
[2021-12-11] MEDS: dilTIAZem HCL CD 180 MG CAP.ER.24H 360 MG PO (08:24)
[2021-12-11] MEDS: hydrALAZINE HCl 25 MG TABLET PO (08:24)
[2021-12-11] MEDS: Loratadine 10 MG TABLET PO (08:24)
[2021-12-11] MEDS: Gabapentin 300 MG CAPSULE PO (08:24)
[2021-12-11] MEDS: methADONE HCl 20 MG/2 ML ORAL.CONC 50 MG PO (08:24)
[2021-12-11] MEDS: predniSONE 20 MG TABLET 40 MG PO (08:32)
[2021-12-11 11:28] LABS: Glucose, Whole Blood 108 mg/dL (60-115)
--- NOTE | 2021-12-11 12:55 | P.DS_ITS ---
DS: Providers Provider Date of Service: 12/11/21 Date of admission: 12/08/21 12:54 Primary care physician: Kelli Benavides MD Consults: 12/08/21 15:39 Consult to Pulmonology Routine Consulting Provider: [facility] Pulmonology Services Reason for consultation: Acute hypoxemic and hypercarbic respiratory failure secondary to COPD. Has provider been notified: No DS: Diagnosis Discharge Diagnosis (1) Alkalosis: Status: Acute (2) Acute exacerbation of chronic obstructive airways disease: Status: Acute (3) Acute on chronic respiratory failure with hypoxia and hypercapnia: Status: Acute DS: Summary Hospital Course Hospital Course: Chief Complaint: sob 51-year-old woman with a past medical history of asthma COPD overlap syndrome, chronic? hypercarbic and hypoxic respiratory failure currently on 2l via [place] home oxygen,also uses bipap at home,? diabetes mellitus, hypertension, hyperlipidemia, tobacco use, and Hypogammaglobulinemia on IVIG,? 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 in apparent shortness of breath, unable to speak in full sentence, with diffuse wheezing.? She has some cough with mostly whitish sputum chronically. Patient was given nebs, steroids and antibiotic in the ED but patient still short of breath with talking and hypoxic. has previous hx of using bipap and ICu admission for intubation. has one episode of question of vomiting, feel nauseated but no abdominal pain or? diarrhea Denies any new complaint of chest pain or? abdominal pain or fever or chills Denies any weakness or numbness. Lab imaging , EKG reviewed: Leukocytosis Bicarb elevated EKG -please see below in EKG section. Chest x-ray negative Hospital course: She was admitted yet again for acute on chronic respiratory failure due to exacerbation of copd with leukocytosis which likely due to chronic steroid use, she had episode of tachyardia which likely from albuterol, anxiety and was not due to sepsis. Her treatment has consisted of IV steroid, bronchodilators by Neb, Levaquin for presumed bronchitis. She is afebrile, covid negative. She presently has no repsitary difficulty at all, breathing easy, will discuss no smoking she say she has not being. At this point she feels comfortable going home, she alert oriented to self place and time and has no sing of CO2 narcosis. Repeat CBC can be done on outpatient basis continue all other prior meds Time Spent with Patient Time attestation: Total time spent providing and/or coordinating discharge services: Discharge coordination time: Greater than 30 minutes Quality: Safe Use of Opioids Does Pt have an Active Cancer Diagnosis on the Problem List?: No Quality: Stroke Does the patient have a stroke diagnosis?: No Physical Exam Vital Signs: Vital Signs: Last Vital Signs Temp 97.6 F 12/11/21 07:33 Pulse 102 H 12/11/21 11:24 Resp 17 12/11/21 11:24 BP 153/76 H 12/11/21 07:33 Pulse Ox 99 12/11/21 07:33 O2 Del Method 12/11/21 07:33 O2 Flow Rate 3 12/11/21 07:33 FiO2 35 12/10/21 07:39 Oxygen Flow Rate 9 12/08/21 09:25 BMI result Body Mass Index 41.5 DS: Data Data Completed and Pending Completed studies during hospitalization [Text1]: Proc Labs on day of discharge: Laboratory Results - last 24 hr 12/10/21 12/10/21 12/11/21 15:57 20:16 06:00 WBC 19.2 H RBC 4.34 Hgb 12.8 Hct 40.8 MCV 94.0 MCH 29.5 MCHC 31.4 RDW 13.5 Plt Count 273 MPV 8.9 L Absolute Nucleated RBC 0.000 Nucleated RBC % (auto) 0.0 POC Glucose 165 H 278 H 12/11/21 12/11/21 07:31 11:25 WBC RBC Hgb Hct MCV MCH MCHC RDW Plt Count MPV Absolute Nucleated RBC Nucleated RBC % (auto) POC Glucose 119 H 108 Preliminary micro results at discharge 12/08/21 10:14 Blood Culture - Preliminary Blood - Venous No growth after 48 hours. 12/08/21 10:21 Blood Culture - Preliminary Blood - Venous No growth after 48 hours. Discharge Plan Discharge Anticipated Discharge Date/Time: 12/11/21 12:53 Patient Disposition: Home, Self-Care Discharge Diagnosis: Acute hypoxemic and hypercarbic respiratory failure secondary to copd excerebation Referrals: Kelli Benavides MD [Primary Care Provider] - 1 Week Discharge Medications: New levofloxacin 500 mg Tablet 500 mg PO DAILY Qty: 2 0RF prednisone 20 mg tablet 40 mg PO DAILY 4 Days Qty: 8 0RF Continued Spiriva with HandiHaler 18 mcg capsule, w/inhalation device 1 cap inhalation DAILY Qty: 30 11RF gabapentin 300 mg capsule 300 mg PO BID 30 Days Qty: 60 3RF diclofenac potassium 50 mg tablet 50 mg PO BID 30 Days Qty: 60 0RF ipratropium-albuterol 0.5 mg-3 mg(2.5 mg base)/3 mL solution for nebulization 3 ml PO Q4H PRN (Reason: for wheezing) Qty: 540 6RF diltiazem HCl [Tiadylt ER] 360 mg capsule,extended release 24 hr 1 cap PO DAILY rosuvastatin 5 mg tablet 1 tab PO BEDTIME Daliresp 500 mcg tablet 1 tab PO DAILY insulin lispro [Humalog U-100 Insulin] 100 unit/mL solution See Protocol subcut TIDAC Protocol: Insulin Correction Scale Less than or equal to 110 ---- Give (units): 0 111 to 150 Give (units): 0 151 to 200 Give (units): 2 201 to 250 Give (units): 4 251 to 300 Give (units): 6 301 to 350 Give (units): 8 Greater than 350 Give (units): 10 Call MD if Blood Glucose > : 350 metformin 500 mg tablet extended release 24 hr 2 tab PO BID hydralazine 25 mg tablet 1 tab PO TID insulin lispro 100 unit/mL solution 4 unit subcut TIDAC Mavyret 100-40 mg tablet 3 tab PO DAILY omeprazole 40 mg capsule,delayed release(DR/EC) 40 mg PO DAILY@0630 methadone 10 mg/mL Concentrate 49 mg PO DAILY ergocalciferol (vitamin D2) 1,250 mcg (50,000 unit) capsule 1,250 mcg PO QWEEK insulin glargine [Lantus U-100 Insulin] 100 unit/mL solution 45 unit subcut BEDTIME lisinopril 40 mg tablet 1 tab PO DAILY ondansetron 4 mg tablet,disintegrating 4 mg PO Q6-8H PRN (Reason: nausea and vomiting) Qty: 14 0RF lidocaine [Lidoderm] 5 % adhesive patch,medicated 1 patch topical DAILY montelukast 10 mg tablet 10 mg PO BEDTIME albuterol sulfate [ProAir HFA] 90 mcg/actuation HFA aerosol inhaler 2 puff inhalation Q4H PRN (Reason: Shortness Of Breath Or Wheezing) loratadine [Claritin] 10 mg tablet 10 mg PO DAILY Brovana 15 mcg/2 mL solution for nebulization 2 ml inhalation Q12H 30 Days Qty: 120 11RF budesonide 0.5 mg/2 mL suspension for nebulization 0.5 mg inhalation BID Qty: 120 11RF Discharge Orders: Discharge Order (Routine); Ordered 12/11/21 Ordered By: Joao Meehan Diet: Advance to usual diet Activity on Discharge: As tolerated Stand Alone Forms: Patient Portal Discharge page Care Plan Goals: Full recovery from exacerbation of acute on chronic respriatory failure due to copd Health Concerns: Chronic respriatory failure, copd, Plan of Treatment: take prednisone, use inhalers and use cpapa machine as directed Don't smoke Assessment: as above
== END 2021-12-11 13:27 | disposition home health service (06) | DRG 140 ==
LOC: HO.ED 11:35 → HO.EDOVER 13:00 → HO.IMC 18:20
PROVIDERS: Hospitalist; Admitting Provider Internal Medicine; Emergency Provider Emergency Medicine; PCP Family Medicine; Visit Provider Internal Medicine
DX: J44.1 Chronic obstructive pulmonary disease with (acute) exacerbation (principal); J96.21 Acute and chronic respiratory failure with hypoxia; E87.3 Alkalosis; Z99.81 Dependence on supplemental oxygen; J96.22 Acute and chronic respiratory failure with hypercapnia; F11.20 Opioid dependence, uncomplicated; E11.9 Type 2 diabetes mellitus without complications; I10 Essential (primary) hypertension; E66.01 Morbid (severe) obesity due to excess calories; Z68.41 Body mass index [BMI] 40.0-44.9, adult; Z20.822 Contact with and (suspected) exposure to COVID-19; Z98.51 Tubal ligation status; Z79.4 Long term (current) use of insulin; Z87.891 Personal history of nicotine dependence; Z79.899 Other long term (current) drug therapy
CPT/HCPCS: 0241U; 36415; 71045; 80048; 80076; 80198; 82803; 82947; 83605; 83690; 84145; 84484; 85025; 85027; 87040; 87635; 93005; 94640; 94660; 96365; 96366; 96367; 96375; 99285; J1650; J1956; J2550; J2920; J2930; J3475

== ENCOUNTER → 2021-12-14 10:28 | Outpatient (BNVA) | payer MEDICAID, SELFPAY | PROVIDERS: PCP Family Medicine; Visit Provider Hospitalist | DX: J44.9 Chronic obstructive pulmonary disease, unspecified (principal); J96.11 Chronic respiratory failure with hypoxia; J96.12 Chronic respiratory failure with hypercapnia; D80.1 Nonfamilial hypogammaglobulinemia; R91.1 Solitary pulmonary nodule; S22.49XA Multiple fractures of ribs, unspecified side, initial encounter for closed fracture; Z72.0 Tobacco use; Z79.52 Long term (current) use of systemic steroids; Z79.899 Other long term (current) drug therapy; Z99.81 Dependence on supplemental oxygen | CPT/HCPCS: 99212 ==

== ENCOUNTER 2021-12-21 16:42 | Inpatient (IN) | payer MEDICAID, SELFPAY ==
[2021-12-21] VITALS (7 sets, daily range): BP systolic 120–128; BP diastolic 77–89; PULSE 92–112; RESP 13–19; TEMP 36.6–36.7; O2SAT 93–95; BMI 41.5
--- NOTE | ~2021-12-21 | XR_ITS ---
EXAMINATION: XR CHEST CLINICAL INFORMATION: Shortness of breath and hypoxia. COPD/asthma. COMPARISON: Chest x-ray 12/08/2021 TECHNIQUE: Frontal view of the chest was obtained. FINDINGS: The lungs are clear. No airspace consolidation, pleural multiple chronic bilateral rib fracture deformities redemonstrated. Effusion, or pneumothorax. The cardiomediastinal silhouette is within normal limits. No acute osseous injury. XR/XR chest 1V IMPRESSION: No acute pulmonary process.
--- NOTE | ~2021-12-21 | XR_ITS ---
EXAMINATION: XR CHEST CLINICAL INFORMATION: Shortness of breath, chronic obstructive pulmonary disease COMPARISON: Examination of 3 days previous. TECHNIQUE: AP upright portable view of the chest was obtained. 12:10 PM FINDINGS: No new airspace consolidation observed. Pulmonary vascularity appears to be stable. Multiple regions of pleural thickening and old rib fracture deformities again observed. Hilar regions are unchanged. No evidence for pneumothorax or new pleural effusion. XR/XR chest 1V IMPRESSION: No acute process. Chronic changes. Stable appearance of the chest since previous evaluation.
--- NOTE | ~2021-12-21 | XR_ITS ---
EXAMINATION: XR CHEST CLINICAL INFORMATION: Dyspnea COMPARISON: Chest x-ray on 12/24/2021 TECHNIQUE: Frontal view of the chest was obtained. FINDINGS: The cardiomediastinal silhouette is normal. There is mild increased pulmonary vascularity. No areas of consolidation. No pleural effusions. XR/XR chest 1V IMPRESSION: Mild pulmonary edema.
--- NOTE | ~2021-12-21 | XR_ITS ---
EXAMINATION: XR chest 1V CLINICAL INFORMATION: Reason for Exam dyspnea COMPARISON: Chest radiograph 12/25/2021 TECHNIQUE: One view of the chest FINDINGS: Clear lungs. No pneumothorax or pleural effusion. Unchanged cardiomediastinal silhouette. Similar bilateral rib fracture deformities.. Interval removal of the left internal jugular central venous catheter. XR/XR chest 1V Impression: 1. Clear lungs. 2. Interval removal of the left internal jugular central venous catheter.
--- NOTE | ~2021-12-21 | XR_ITS ---
EXAMINATION: XR CHEST CLINICAL INFORMATION: Central line placement and endotracheal tube and orogastric tube placement. COMPARISON: December 24, 2021 and earlier on December 25, 2021 TECHNIQUE: 2 AP portable views of the chest. view of the chest was obtained. FINDINGS: Image #1: Left internal jugular central venous catheter is seen in place with tip in the region of the superior right atrium. No pneumothorax is appreciated. Bilateral rib fractures are present as well as some mild interstitial prominence. No confluent parenchymal disease is identified. No pleural effusion is appreciated. Heart normal size. No evidence of airspace edema. Image #2: Central venous catheter again seen in place with tip in the superior right atrium. Endotracheal tube has been placed with tip approximately 3 cm above the kellen. Enteric catheter is seen traversing below the diaphragms. Multiple bilateral rib fractures again evident. No confluent parenchymal disease. No pneumothorax or significant pleural effusion. XR/XR chest 1V IMPRESSION: Support devices in place without pneumothorax or significant pleural effusion. No confluent airspace disease identified.
--- NOTE | 2021-12-21 16:58 | ED_ITS ---
HPI - SOB/Dyspnea General Chief Complaint: Upper Respiratory Symptoms Stated Complaint: DIFF BREATHING Time Seen by Provider: 12/21/21 16:48 Source: patient and EMS Mode of arrival: EMS Limitations: no limitations History of Present Illness HPI Narrative: Patient comes to the emergency room via EMS complaining of severe shortness of breath. Patient is known to have overlapping asthma/COPD. Patient was discharged from the hospital on 12/11/2021 for an asthma/COPD exacerbation. Patient was discharged with Levaquin and prednisone. Patient states that she has been taking her medication. Patient complains that she started having a COPD/asthma exacerbation approximately 3 days ago. Today, when EMS arrived to the patient's house, patient was in severe respiratory distress, using her own CPAP, saturating in the low 90s. Patient was given a DuoNeb on the way to the hospital. They were unable to get IV access. Patient denies fever or chills. No vomiting or diarrhea, Related Data Home Medications Medication Instructions Recorded Confirmed albuterol sulfate 90 mcg/actuation 2 puff inhalation Q4H PRN 12/30/19 12/21/21 aerosol inhaler (ProAir HFA) Shortness Of Breath Or Wheezing loratadine 10 mg tablet (Claritin) 10 mg PO DAILY 12/30/19 12/21/21 montelukast 10 mg tablet 10 mg PO BEDTIME 12/30/19 12/21/21 diltiazem HCl 360 mg capsule,24 1 cap PO DAILY 11/16/20 12/21/21 hr,extended release (Tiadylt ER) roflumilast 500 mcg tablet 1 tab PO DAILY 11/16/20 12/21/21 (Daliresp) rosuvastatin 5 mg tablet 1 tab PO BEDTIME 11/16/20 12/21/21 insulin lispro 100 unit/mL See Protocol subcut TIDAC 12/14/20 12/21/21 subcutaneous solution (Humalog U-100 Insulin) metformin 500 mg tablet,extended 2 tab PO BID 05/18/21 12/21/21 release 24 hr ergocalciferol (vitamin D2) 1,250 1,250 mcg PO QWEEK 06/06/21 12/21/21 mcg (50,000 unit) capsule methadone 10 mg/mL oral concentrate 49 mg PO DAILY 06/06/21 09/24/21 insulin glargine 100 unit/mL 45 unit subcut BEDTIME 06/07/21 12/21/21 subcutaneous solution (Lantus U-100 Insulin) lisinopril 40 mg tablet 1 tab PO DAILY 07/30/21 12/21/21 glecaprevir 100 mg-pibrentasvir 40 3 tab PO DAILY 11/02/21 12/21/21 mg tablet (Mavyret) hydralazine 25 mg tablet 1 tab PO TID 11/02/21 12/21/21 insulin lispro 100 unit/mL 4 unit subcut TIDAC 11/02/21 12/21/21 subcutaneous solution omeprazole 40 mg capsule,delayed 40 mg PO DAILY@0630 11/02/21 12/21/21 release lidocaine 5 % topical patch 1 patch topical DAILY 12/08/21 12/21/21 (Lidoderm) Previous Rx's Medication Instructions Recorded tiotropium bromide 18 mcg capsule 1 cap inhalation DAILY #30 ea 06/25/21 with inhalation device (Spiriva with HandiHaler) arformoterol 15 mcg/2 mL solution 2 ml inhalation Q12H 30 days #120 07/24/21 for nebulization (Brovana) mL budesonide 0.5 mg/2 mL suspension 0.5 mg (2 mL) inhalation BID #120 07/24/21 for nebulization mL gabapentin 300 mg capsule 300 mg PO BID 30 days #60 caps 09/19/21 diclofenac potassium 50 mg tablet 50 mg PO BID 30 days #60 tabs 10/08/21 ondansetron 4 mg disintegrating 4 mg PO Q6-8H PRN nausea and 12/07/21 tablet vomiting #14 tabs bupropion HCl 75 mg tablet 150 mg PO BID 30 days #120 tabs 12/14/21 prednisone 10 mg tablet 30 mg PO DAILY 30 days #90 tabs 12/14/21 theophylline 450 mg 450 mg PO Q12H 30 days #60 tabs 12/14/21 tablet,extended release,12 hr doxycycline hyclate 100 mg capsule 100 mg PO BID 10 days #20 caps 12/20/21 ipratropium 0.5 mg-albuterol 3 mg 3 ml PO Q4H PRN for wheezing #540 12/20/21 (2.5 mg base)/3 mL nebulization mL soln Allergies Allergy/AdvReac Type Severity Reaction Status Date / Time No Known Allergies Allergy Verified 12/14/21 10:35 [No Known Allergies*] Review of Systems Review of Systems: Constitutional : No Weight loss, No Fever, No Chills, No Night Sweats, No Fatigue, No Malaise ENT/Mouth : No Hearing loss, No Ear Pain, No Nasal Congestion, No Sinus Pain, No Hoarseness, No sore throat, No Rhinorrhea, No Swallowing Difficulty Eyes: No Eye Pain, No Swelling, No Redness, No Foreign Body, No Discharge, No Vision Changes Cardiovascular : No Chest Pain, complaining of palpitations Respiratory : Complaining of cough, severe shortness of breath, wheezing Gastrointestinal : No Nausea, No Vomiting, No Diarrhea, No Constipation, No abdominal Pain, No Hematochezia, No Melena Genitourinary : no irregular bleeding, No Dysuria, No Urinary Frequency, No Hematuria, No Urinary Incontinence, No Urgency, No Flank Pain, No Urinary Flow Changes, No Hesitancy Musculoskeletal : No joint pain, No Myalgias, No Joint Swelling Skin : No Skin Lesions, No rash Neuro : No Weakness, No Numbness, No Paresthesias, No Loss of Consciousness, No Dizziness, No Headache Psych : No Anxiety/Panic, No Depression, No SI/HI/AH/VH, No Social Issues, Heme/Lymph: No Bruising, No Bleeding,No Lymphadenopathy Endocrine : No Polyuria, No Polydipsia, No Temperature Intolerance [facility] [place] Past Medical History Medical History Abdominal pain Abnormal chest x-ray Acute respiratory failure Aspiration into airway Asthma-COPD overlap syndrome Chronic respiratory failure Chronic respiratory failure Congestive heart failure COPD (chronic obstructive pulmonary disease) COPD exacerbation Diabetes mellitus Essential hypertension Hyperlipidemia, unspecified Hypertensive cardiovascular disease Hypogammaglobulinemia Leukocytosis Limb swelling Morbid obesity Opioid dependence Poor dentition Pulmonary congestion Pulmonary nodule Rib fractures Status asthmaticus with COPD (chronic obstructive pulmonary disease) Tobacco abuse Type 2 diabetes mellitus Type 2 diabetes mellitus with unspecified complications Vomiting Surgical History H/O tubal ligation Family History Family History Father Diabetes Other Asthma Social History Social History Household Members: Children Household Members Other:: 3 Housing: Apartment Do you presently have visiting nurse or other home services: Yes Unable to assess alcohol history related to: Unknown Alcohol intake: former Patient Tobacco Use Status: Former Tobacco user Tobacco use type: Cigarette Cigarettes Per Day: 1 Years Smoked: 35 e-Cigarette/Vaping Use: Currently Using Second Hand Smoke Exposure: No Substance Use Type: Opiates Advance Directives: Yes Advance Directives on File: Yes Advance Directives Date on File: 06/12/21 service: No Current occupational status: disabled Physical Exam Vital Signs: Vital Signs: Last Vital Signs Temp 97.8 F 12/21/21 19:24 Pulse 93 12/21/21 19:24 Resp 19 12/21/21 19:24 BP 124/77 12/21/21 19:24 Pulse Ox 93 12/21/21 19:29 O2 Del Method 12/21/21 19:29 O2 Flow Rate 4 12/21/21 19:24 FiO2 30 12/21/21 16:48 Oxygen Flow Rate 2 12/21/21 19:29 BMI result Body Mass Index 41.5 Const: Other: Appearance: Alert. Oriented X3. In moderate respiratory distress Eyes: Pupils equal, round and reactive to light. ENT: Pharynx normal. Neck: Normal inspection. Neck supple. No lymph nodes noted. No crepitus CVS: Normal heart rate and rhythm. Pulses normal. Normal S1 and S2 Respiratory: Respiratory distress, bilateral wheezing, decreased breath mov ements. Oxygen saturation dropped within a minute from low 90s to 79 when patient took her CPAP of to switch her from the EMS CPAP to our CPAP Abdomen: Soft and nontender. No rigidity. No distention. Skin: Skin warm and dry. Normal skin color. Normal skin turgor. Extremities: No lower extremity edema. No Lacerations. No Rash Neuro: Oriented X 3. No motor deficit. No sensory deficit. Moving all extremities. No slurred speech. CN 2 through 12 grossly intact Psych: calm, cooperative, normal affect Course Course Course Narrative: As we were transferring the patient from the EMS stretcher to her bed, patient was taken off CPAP for less than a minute, oxygen saturation dropped to 79% Known to have asthma and COPD. At this time, patient is being treated with IV fluids 2 L, for an ideal body weight of 50 kg, patient is obese. Ceftriaxone has been started. Also patient was given a DuoNeb by EMS, now she is getting an hour long albuterol treatment, magnesium, 125mg of Solu-Medrol. All of patient's labs and imaging are pending Patient was weaned off BiPAP, patient's current oxygen saturation is 98-91% on 5 L, which is more than her baseline. I discussed the patient with our hos pitalist, patient being admitted. MDM - SOB/Dyspnea Lab Data Result diagrams: 12/21/21 18:21 12/21/21 18:21 Labs: Lab Results 12/21/21 12/21/21 12/21/21 Range/Units 18:21 18:21 18:21 WBC 21.2 H (4.8-10.8) X10*3/uL RBC 3.84 L (4.20-5.50) X10*6/uL Hgb 11.4 L (12.0-16.0) g/dl Hct 37.9 (37.0-47.0) % MCV 98.7 H (80.0-98.0) fL MCH 29.7 (27.0-33.0) pg MCHC 30.1 L (31.0-35.0) g/dl RDW 13.8 (11.0-16.0) % Plt Count 259 (160-400) X10*3/uL MPV 8.9 L (9.4-12.3) fL Immature Gran % (Auto) 1.2 H (0.0-0.4) % Neut % (Auto) 90.5 H (45-73) % Lymph % (Auto) 4.3 L (20-40) % Vance % (Auto) 3.7 (2-11) % Eos % (Auto) 0.0 (0-4) % Baso % (Auto) 0.3 (0-2) % Lymph # (Auto) 0.9 L (1.2-4.9) X10*3/uL Vance # (Auto) 0.8 (0.1-1.2) X10*3/uL Eos # (Auto) 0.0 (0.0-0.4) X10*3/uL Baso # (Auto) 0.1 (0.0-0.2) X10*3/uL Abs Immat Gran (auto) 0.26 H (0.00-0.03) X10*3/uL Absolute Neuts (auto) 19.2 H (2.0-8.3) x10*3/uL Absolute Nucleated RBC 0.000 (0.0-0.012) X10*3/uL Nucleated RBC % (auto) 0.0 (0.0-0.2) /100WBC Smear Tech's Comments VERIFIED PT 10.1 (10.0-13.1) SEC INR 0.9 (0.9-1.1) Sodium 146 H (135-145) mmol/L Potassium 4.4 (3.3-5.1) mmol/L Chloride 96 (96-108) mmol/L Carbon Dioxide 40 H* D (22-29) mmol/L Anion Gap 14 (12-20) BUN 20 H (9-16) mg/dL Creatinine 0.68 (0.5-1.4) mg/dL Estim Creat Clear Calc 105.9 Estimated GFR > 60 POC Glucose (60-115) mg/dL Random Glucose 212 H (60-115) mg/dL Calcium 9.0 (8.4-10.2) mg/dL Total Bilirubin < 0.2 (0.0-1.0) mg/dL Direct Bilirubin < 0.2 (0.0-0.5) mg/dL AST 11 (5-31) U/L ALT 18 (0-31) U/L Alkaline Phosphatase 92 (39-117) U/L Troponin I High Sens (<3.5-17.0) ng/L B-Natriuretic Peptide (<100) pg/mL Total Protein 6.1 L (6.5-8.0) g/dL Albumin 3.8 (3.5-5.0) g/dL COVID-19 (PAPO) (Negative) COVID-19 Clin Com 12/21/21 12/21/21 12/21/21 Range/Units 18:21 18:21 18:24 WBC (4.8-10.8) X10*3/uL RBC (4.20-5.50) X10*6/uL Hgb (12.0-16.0) g/dl Hct (37.0-47.0) % MCV (80.0-98.0) fL MCH (27.0-33.0) pg MCHC (31.0-35.0) g/dl RDW (11.0-16.0) % Plt Count (160-400) X10*3/uL MPV (9.4-12.3) fL Immature Gran % (Auto) (0.0-0.4) % Neut % (Auto) (45-73) % Lymph % (Auto) (20-40) % Vance % (Auto) (2-11) % Eos % (Auto) (0-4) % Baso % (Auto) (0-2) % Lymph # (Auto) (1.2-4.9) X10*3/uL Vance # (Auto) (0.1-1.2) X10*3/uL Eos # (Auto) (0.0-0.4) X10*3/uL Baso # (Auto) (0.0-0.2) X10*3/uL Abs Immat Gran (auto) (0.00-0.03) X10*3/uL Absolute Neuts (auto) (2.0-8.3) x10*3/uL Absolute Nucleated RBC (0.0-0.012) X10*3/uL Nucleated RBC % (auto) (0.0-0.2) /100WBC Smear Tech's Comments PT (10.0-13.1) SEC INR (0.9-1.1) Sodium (135-145) mmol/L Potassium (3.3-5.1) mmol/L Chloride (96-108) mmol/L Carbon Dioxide (22-29) mmol/L Anion Gap (12-20) BUN (9-16) mg/dL Creatinine (0.5-1.4) mg/dL Estim Creat Clear Calc Estimated GFR POC Glucose 189 H (60-115) mg/dL Random Glucose (60-115) mg/dL Calcium (8.4-10.2) mg/dL Total Bilirubin (0.0-1.0) mg/dL Direct Bilirubin (0.0-0.5) mg/dL AST (5-31) U/L ALT (0-31) U/L Alkaline Phosphatase (39-117) U/L Troponin I High Sens 9.4 D (<3.5-17.0) ng/L B-Natriuretic Peptide 33 (<100) pg/mL Total Protein (6.5-8.0) g/dL Albumin (3.5-5.0) g/dL COVID-19 (PAPO) Negative (Negative) COVID-19 Clin Com See Note Imaging Data Chest x-ray: Radiologist's impression: FINDINGS: The lungs are clear. No airspace consolidation, pleural multiple chronic bilateral rib fracture deformities redemonstrated. Effusion, or pneumothorax. The cardiomediastinal silhouette is within normal limits. No acute osseous injury. XR/XR chest 1V IMPRESSION: No acute pulmonary process. Critical Care Time Critical Care Time Critical Care Time: Yes Total Critical Care Time: 60 Attestation: I have personally provided critical care time. Time includes review of lab data, radiology results, discussion with consultants, and monitoring for potential decompensation. Intervention performed as documented. Discharge Plan Discharge Clinical Impression: COPD mixed type Patient Disposition: Admitted As Inpatient Prescriptions: No Action Spiriva with HandiHaler 18 mcg capsule, w/inhalation device 1 cap inhalation DAILY Qty: 30 11RF gabapentin 300 mg capsule 300 mg PO BID 30 Days Qty: 60 3RF diclofenac potassium 50 mg tablet 50 mg PO BID 30 Days Qty: 60 0RF doxycycline hyclate 100 mg capsule 100 mg PO BID 10 Days Qty: 20 0RF ipratropium-albuterol 0.5 mg-3 mg(2.5 mg base)/3 mL solution for nebulization 3 ml PO Q4H PRN (Reason: for wheezing) Qty: 540 6RF diltiazem HCl [Tiadylt ER] 360 mg capsule,extended release 24 hr 1 cap PO DAILY rosuvastatin 5 mg tablet 1 tab PO BEDTIME Daliresp 500 mcg tablet 1 tab PO DAILY insulin lispro [Humalog U-100 Insulin] 100 unit/mL solution See Protocol subcut TIDA Protocol: Insulin Correction Scale Less than or equal to 110 ---- Give (units): 0 111 to 150 Give (units): 0 151 to 200 Give (units): 2 201 to 250 Give (units): 4 251 to 300 Give (units): 6 301 to 350 Give (units): 8 Greater than 350 Give (units): 10 Call MD if Blood Glucose > : 350 metformin 500 mg tablet extended release 24 hr 2 tab PO BID hydralazine 25 mg tablet 1 tab PO TID insulin lispro 100 unit/mL solution 4 unit subcut TIDAC Mavyret 100-40 mg tablet 3 tab PO DAILY omeprazole 40 mg capsule,delayed release(DR/EC) 40 mg PO DAILY@0630 methadone 10 mg/mL Concentrate 49 mg PO DAILY ergocalciferol (vitamin D2) 1,250 mcg (50,000 unit) capsule 1,250 mcg PO QWEEK insulin glargine [Lantus U-100 Insulin] 100 unit/mL solution 45 unit subcut BEDTIME lisinopril 40 mg tablet 1 tab PO DAILY ondansetron 4 mg tablet,disintegrating 4 mg PO Q6-8H PRN (Reason: nausea and vomiting) Qty: 14 0RF lidocaine [Lidoderm] 5 % adhesive patch,medicated 1 patch topical DAILY montelukast 10 mg tablet 10 mg PO BEDTIME albuterol sulfate [ProAir HFA] 90 mcg/actuation HFA aerosol inhaler 2 puff inhalation Q4H PRN (Reason: Shortness Of Breath Or Wheezing) loratadine [Claritin] 10 mg tablet 10 mg PO DAILY Brovana 15 mcg/2 mL solution for nebulization 2 ml inhalation Q12H 30 Days Qty: 120 11RF budesonide 0.5 mg/2 mL suspension for nebulization 0.5 mg inhalation BID Qty: 120 11RF bupropion HCl 75 mg tablet 150 mg PO BID 30 Days Qty: 120 3RF theophylline 450 mg tablet extended release 12 hr 450 mg PO Q12H 30 Days Qty: 60 6RF prednisone 10 mg tablet 30 mg PO DAILY 30 Days Qty: 90 0RF
--- OUTSIDE RECORDS SUMMARY | 2021-12-21 16:59 | XMS_ITS | Continuity of Care Document ---
:1970 Author Organization [facility] Address [address] [place] [id number]- Care Team Providers Name Role Phone Makayla PHILLIP, Kelli Primary Care Physician Encounter [facility] [place] Date(s): 03/29/20 - 04/21/[address] [address]- Discharge Disposition: A-D/C Home Attending Physician: Kelli Benavides MD Admitting Physician: Kelli Benavides MD Referring Physician: Kelli Benavides MD Allergies, Adverse Reactions, Alerts Substance Reaction Severity Status NKA Active Immunizations Given and Recorded Vaccine Date Status Refusal Reason pneumococcal 23-valent vaccine 11/26/15 Given Medications Advair Diskus 500 mcg-50 mcg inhalation powder 1, puffs, Inhalation, 2 times a day, # 60 each, Refills 0, Maintenance, 01/11/17 20:28:16, Powder Start Date: 01/11/17 Status: OrderedAmbien Tablet = 10 mg, By Mouth, Daily at bedtime, 0 Refills, Maintenance, 11/28/15 10:03:10, Tablet Start Date: 11/28/15 Status: OrderedclonazePAM 1 mg oral tablet 1 tablet = 1 mg, By Mouth, 2 times a day, 0 Refills, Maintenance, 01/11/17 21:05:28, Tablet Start Date: 01/11/17 Status: OrderedDaliresp 500 mcg oral tablet 1 tablet = 500 mcg, By Mouth, Daily, 0 Refills, Maintenance, 01/11/17 21:07:11 Start Date: 01/11/17 Status: Ordereddiltiazem 120 mg/24 hours oral tablet, extended release 1 tablet = 120 mg, By Mouth, Daily, # 30 tablet, 0 Refills, Maintenance, 01/11/17 20:26:32, ER Tablet Start Date: 01/11/17 Status: OrderedLantus 100 u/ml subcutaneous solution = 30 units, Subcutaneous Injection, Daily, # 10 mL, 0 Refills, Maintenance, 01/11/17 21:02:31, Solution Start Date: 01/11/17 Status: Orderedlisinopril 20 mg oral tablet 20 mg, 1, tablet, By Mouth, Daily, # 90 tablet, Refills 0, Maintenance, 01/11/17 20:27:19 Start Date: 01/11/17 Status: Orderedloratadine 10 mg oral tablet 10 mg, 1, tablet, By Mouth, Daily, # 90 tablet, Refills 0, Maintenance, 01/11/17 20:27:03 Start Date: 01/11/17 Status: OrderedmetFORMIN 500 mg oral tablet 1 tablet = 500 mg, By Mouth, 2 times a day, # 180 tablet, 0 Refills, Maintenance, 01/11/17 20:27:11,Tablet Start Date: 01/11/17 Status: OrderedMethadone = 50 mg, 0 Refills, Maintenance, 10/21/12 13:08:39 Start Date: 10/21/12 Status: Orderednicotine 21 mg/24 hr transdermal film, extended release 1 patch, Topically, Daily, # 30 patch, 0 Refills, Maintenance, 01/11/17 20:27:41, Patch Start Date: 01/11/17 Status: OrderedOmeprazole = 20 mg, By Mouth, Daily, 0 Refills, Maintenance, 01/11/17 21:06:48 Start Date: 01/11/17 Status: OrderedpredniSONE 10 mg oral tablet See Instructions, 60 mg PO daily for 3 days, 50mg PO daily x3d, 40mg POx2 d, 30mg PO daily x 2d, 20mg PO daily x2d, 10 mg PO daily x2d, pls print in sami, # 7 tablet, 0 Refills, Soft Stop, 01/14/17 10:34:39, Tablet Start Date: 01/14/17 Status: OrderedProAir HFA 90 mcg/inh inhalation aerosol with adapter 2 puffs, Inhalation, 4 times a day, 0 Refills, Maintenance Start Date: 10/21/12 Status: OrderedSpiriva HandiHaler 18 mcg Inhalation Capsule 1 capsule = 18 mcg, Inhalation, Daily, # 90 capsule, 0 Refills, Maintenance, Capsule Start Date: 10/21/12 Status: Orderedtheophylline 100 mg oral tablet, extended release 3 tablet = 300 mg, By Mouth, Every 12 hours, 0 Refills, Maintenance, 01/11/17 21:04:45, ER Tablet Start Date: 01/11/17 Status: Ordered Problem List Condition Effective Dates Status Health Status Informant Anxiety(Confirmed) Active Chronic hepatitis C(Confirmed) Active Chronic respiratory failure with Active hypercapnia(Confirmed) COPD(Confirmed) Active Depression(Confirmed) Active History of substance abuse(Confirmed)1 Active Hypertension(Confirmed) Active CHITO (obstructive sleep Active apnea)(Confirmed) PTSD (post-traumatic stress Active disorder)(Confirmed) Tobacco abuse(Confirmed) Active Tobacco use(Confirmed) Active Type 2 diabetes mellitus(Confirmed) Active 1heroine, now on methadone Social History Social History Type Response Smoking Status Current every day smoker; Ty pe: Cigarettes; Previous treatment: Medications; Previous treatment: Nicotine replacement; Tobacco use times per day: Smoked 1-1.5 packs per day up until earlier this year and now smoking 4 cigarett es per day; not smoking in h er house.; Started at age: 9; entered on: 09/29/17 Sex
--- OUTSIDE RECORDS SUMMARY | 2021-12-21 16:59 | XMS_ITS | Continuity of Care Document ---
:1970 Author Organization [facility] Address [address] [place] [id number]- Care Team Providers Name Role Phone Makayla PHILLIP, Kelli Primary Care Physician Encounter [facility] [place] Date(s): 03/29/20 - 04/28/[address] [id number] Attending Physician: Denise Camarillo Admitting Physician: Denise Camarillo Referring Physician: AdmtrDenise Allergies, Adverse Reactions, Alerts Substance Reaction Severity [...] mg PO daily x2d, pls print in ukrainian, # 7 tablet, 0 Refills, Soft Stop, [...]
--- OUTSIDE RECORDS SUMMARY | 2021-12-21 16:59 | XMS_ITS | Continuity of Care Document ---
:1970 Author Organization [facility] Address [address] [place] [id number]- Care Team Providers Name Role Phone Makayla PHILLIP, Kelli Primary Care Physician Encounter [facility] [place] Date(s): 11/02/20 - 11/02/[address] [address]- Discharge Disposition: A-D/C Home Attending Physician: Ronan Parson MD Admitting Physician: Ronan Parson MD Referring Physician: Ronan Parson MD Allergies, Adverse Reactions, Alerts Substance Reaction [...] mg PO daily x2d, pls print in burkinan, # 7 tablet, 0 Refills, Soft Stop, [...] diabetes mellitus(Confirmed) Active 1heroine, now on methadone Vital Signs Most recent to oldest 1 2 3 [Reference Range]: Height 154 cm (11/02/20 9:45 AM) Weight 97.73 kg (11/02/20 9:45 AM) Oxygen Saturation [94-100 96 % 99 % 99 % %] (11/02/20 11:15 AM) (11/02/20 11:00 AM) (11/02/20 1 0:55 AM) Pulse Rate [55-90 bpm] 106 bpm *H* (11/02/20 9:45 AM) Body Mass Index 41.21 [18.5-24.99] *>HHI* (11/02/20 9:45 AM) Blood Pressure 125/53 mm Hg 128/117 mm Hg 116/71 mm Hg [90-138/55-84 mm Hg] (11/02/20 11:15 AM) (11/02/20 11:00 AM) (11/02 10:55 AM) Respiratory Rate [16-30 19 br/min 18 br/min 18 br/mi n br/min] (11/02/20 10:45 AM) (11/02/20 9:45 AM) (11/02/20 9: 40 AM) Temperature [96.8-100.4 97.6 DegF DegF] (11/02/20 9:45 AM) Liters per Minute 3 L/min 4 L/min 4 L/min (11/02/20 10:55 AM) (11/02/20 10:50 AM) (11/02/20 1 0:45 AM) Mode of Delivery (Oxygen) Nasal cannula Nasal cannula Simple face mask (11/02/20 11:40 AM) (11/02/20 10:55 AM) (11/02/20 1 0:50 AM) Blood pressure sites Arm, left Arm, right (11/02/20 10:45 AM) (11/02/20 9:45 AM) Temperature Route Temporal (11/02/20 9:45 AM) Dry Weight 97.73 kg (11/02/20 9:45 AM) Weight Obtained Via Patient/family stated (11/02/20 9:45 AM) Dry Weight Obtained Via Patient/family stated (11/02/20 9:45 AM) Social History Social History Type Response Smoking [...]
--- OUTSIDE RECORDS SUMMARY | 2021-12-21 16:59 | XMS_ITS | Continuity of Care Document ---
:1970 Author Organization [facility] Address [address] [place] [id number]- Care Team Providers Name Role Phone Makayla PHILLIP, Kelli Primary Care Physician Encounter [facility] [place] Date(s): 11/30/20 - 11/30/[address] [address]- Discharge Disposition: A-D/C Home Attending Physician: Ronan [...] mg PO daily x2d, pls print in somali, # 7 tablet, 0 Refills, Soft Stop, [...] oldest 1 2 3 [Reference Range]: Height 154.94 cm (11/30/20 10:21 AM) Weight 94.9 kg (11/30/20 10:21 AM) Oxygen Saturation [94-100 %] 93 % 90 % 97 % *L* *L* (11/30/20 1:20 PM ) (11/30/20 1:35 PM) (11/30/20 1:30 PM) Pulse Rate [55-90 bpm] 107 bpm *H* (11/30/20 10:21 AM) Body Mass Index [18.5-24.99] 39.53 *>HHI* (11/30/20 10:21 AM) Blood Pressure [90-138/55-84 143/97 mm Hg 143/116 mm Hg 153 /110 mm Hg mm Hg] *H* *H* *H* (11/30/20 1:30 PM) (11/30/20 1:20 PM) (11/30/20 1:1 5 PM) Respiratory Rate [16-30 19 br/min 24 br/min 20 br/mi n br/min] (11/30/20 1:30 PM) (11/30/20 1:20 PM) (11/30/20 1:1 5 PM) Temperature [96.8-100.4 DegF] 98.3 DegF (11/30/20 10:21 AM) Liters per Minute 2 L/min 2 L/min 2 L/min (11/30/20 1:35 PM) (11/30/20 1:30 PM) (11/30/20 1:2 0 PM) Mode of Delivery (Oxygen) Nasal cannula Nasal cannula Nasal cannula (11/30/20 1:35 PM) (11/30/20 1:20 PM) (11/30/20 1:1 5 PM) Blood pressure sites Arm, left (11/30/20 10:21 AM) Temperature Route Temporal (11/30/20 10:21 AM) Dry Weight 94.9 kg (11/30/20 10:21 AM) Weight Obtained Via Standing scale (11/30/20 10:21 AM) Dry Weight Obtained Via Standing scale (11/30/20 10:21 AM) Social History Social History Type Response [...]
[2021-12-21] MEDS: Albuterol Sulfate (0.083%) 2.5 MG/3 ML VIAL.NEB 10 MG INHALE (17:02)
--- NOTE | 2021-12-21 17:02 | ECG_ITS ---
Test Reason : SHORTNESS OF BREATH Blood Pressure : / mmHG Vent. Rate : 102 BPM Atrial Rate : 102 BPM P-R Int : 130 ms QRS Dur : 080 ms QT Int : 344 ms P-R-T Axes : 055 027 040 degrees QTc Int : 448 ms Sinus tachycardia RSR' or QR pattern in V1 suggests right ventricular conduction delay Otherwise normal ECG When compared with ECG of 08-DEC-2021 09:47, No significant change was found
[2021-12-21] MEDS: Magnesium Sulfate/H2O 2 GM/50 ML PIGGYBACK IV (17:15)
[2021-12-21] MEDS: 0.9 % Sodium Chloride 2,000 ML 999 ML IVCONT (17:16)
[2021-12-21] MEDS: methylPREDNISolone Sod Succ 125 MG/2 ML VIAL IVPUSH (17:16)
[2021-12-21 18:30] LABS: Glucose, Whole Blood 189 mg/dL (60-115)
[2021-12-21 18:32] LABS: Basophils Absolute Auto 0.1 X10*3/uL (0.0-0.2); Basophils Percent Auto 0.3 % (0-2); Hematocrit 37.9 % (37.0-47.0); Hemoglobin 11.4 g/dl (12.0-16.0); Imm Gran Abs Auto 0.26 X10*3/uL (0.00-0.03); Imm Gran Pct Auto 1.2 % (0.0-0.4); Lymphocytes Absolute Auto 0.9 X10*3/uL (1.2-4.9); Lymphocytes Percent Auto 4.3 % (20-40); MANUAL DIFF FLAG SCAN; Mean Corpuscular HGB Conc 30.1 g/dl (31.0-35.0); Mean Corpuscular Hemoglobin 29.7 pg (27.0-33.0); Mean Corpuscular Volume 98.7 fL (80.0-98.0); Mean Platelet Volume 8.9 fL (9.4-12.3); Monocytes Absolute Auto 0.8 X10*3/uL (0.1-1.2); Monocytes Percent Auto 3.7 % (2-11); Neutrophils Absolute Auto 19.2 x10*3/uL (2.0-8.3); Neutrophils Percent Auto 90.5 % (45-73); Platelet Count 259 X10*3/uL (160-400); Red Blood Count 3.84 X10*6/uL (4.20-5.50); Red Cell Distribution Width 13.8 % (11.0-16.0); SCAN SMEAR FLAG 1; White Blood Count 21.2 X10*3/uL (4.8-10.8)
[2021-12-21] MEDS: cefTRIAXone sodium 1 GM in 0.9 % Sodium Chloride 50 ML IV (18:34)
[2021-12-21 18:40] LABS: INTERNATIONAL NORM RATIO 0.9 (0.9-1.1); Prothrombin Time 10.1 SEC (10.0-13.1)
[2021-12-21 18:47] LABS: COVID-19 Test Negative (Negative)
[2021-12-21 18:48] LABS: B Type Natriuretic Peptide 33 pg/mL (<100); Troponin-I High Sensitivity 9.4 ng/L (<3.5-17.0)
[2021-12-21 18:51] LABS: Alanine Aminotransferase 18 U/L (0-31); Albumin Level 3.8 g/dL (3.5-5.0); Alkaline Phosphatase 92 U/L (39-117); Anion Gap 14 (12-20); Aspartate Amino Transferase 11 U/L (5-31); Bilirubin Direct < 0.2 mg/dL (0.0-0.5); Bilirubin Total < 0.2 mg/dL (0.0-1.0); Blood Urea Nitrogen 20 mg/dL (9-16); Carbon Dioxide 40 mmol/L (22-29); Chloride 96 mmol/L (96-108); Creatinine Clr Calc Pharmacy 105.9; Estimated Glomerular Filt Rate > 60; Glucose Random 212 mg/dL (60-115); Potassium 4.4 mmol/L (3.3-5.1); SLIDE REVIEW VERIFIED; Sodium 146 mmol/L (135-145); Total Protein 6.1 g/dL (6.5-8.0)
--- NOTE | 2021-12-21 18:58 | PHA.MEDREC ---
med rec complete, patient was recently discharged Pharmacy Consult ? Medication Reconciliation Pharmacy has completed the medication reconciliation.
[2021-12-21] MEDS: Azithromycin 500 MG in 0.9 % Sodium Chloride 250 ML 125 MG IV (20:12)
[2021-12-21 21:13] LABS: Venous Blood Gas Refer to POC result
[2021-12-21 21:13] LABS: VBG Base Excess 11.2 mmol/L; VBG HCO3 33 mmol/L (22-26); VBG pCO2 35 mmHg; VBG pH 7.58 (7.32-7.43); VBG pO2 192 mmHg
[2021-12-21 21:17] LABS: Lactic Acid 1.1 mmol/L (0.5-2.0)
--- NOTE | 2021-12-21 22:11 | P.HPHOSP_ITS ---
History of Present Illness
--- NOTE | 2021-12-21 22:11 | PM.IMHP ---
History of Present Illness Date of Service: 12/21/21 Chief Complaint: Shortness of breath Irish-speaking only. 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 Symptoms started the day prior. Reports cough, sputum production, no fever chills, reports her granddaughter has been sick with a viral infection recently and she caught it from her. Patient denies any orthopnea or PND, denies any lower extremity edema. Denies any chest pain, no palpitations, headache or change in vision, no nausea or vomiting, no abdominal pain, no diarrhea constipation, no urinary symptoms. EMS reported that patient was found to be satting in the mid 80s on 2.5 L of oxygen on their arrival. In the ED patient dropped to 79% on room air, currently on 5 L satting 93% Labs are significant for WBC count of 21.2 hemoglobin 11.4, pH of 7.58, pCO2 of 35, bicarb 40, BNP is 35, COVID-19 negative Chest x-ray shows no acute pulmonary process Patient needed several hours of BiPAP in the ED but is now on nasal cannula, and will be admitted for further management Review of Systems Review of Systems: Yes all other systems are reviewed and are negative [facility] Medical History Abdominal pain Abnormal chest x-ray Acute respiratory failure Aspiration into airway Asthma-COPD overlap syndrome Chronic respiratory failure Chronic respiratory failure Congestive heart failure COPD (chronic obstructive pulmonary disease) COPD exacerbation Diabetes mellitus Essential hypertension Hyperlipidemia, unspecified Hypertensive cardiovascular disease Hypogammaglobulinemia Leukocytosis Limb swelling Morbid obesity Opioid dependence Poor dentition Pulmonary congestion Pulmonary nodule Rib fractures Status asthmaticus with COPD (chronic obstructive pulmonary disease) Tobacco abuse Type 2 diabetes mellitus Type 2 diabetes mellitus with unspecified complications Vomiting Family History Father Diabetes Other Asthma Surgical History H/O tubal ligation Social History Household Members: Children Household Members Other:: 3 Housing: Apartment Do you presently have visiting nurse or other home services: Yes Unable to assess alcohol history related to: Unknown Alcohol intake: former Patient Tobacco Use Status: Former Tobacco user Tobacco use type: Cigarette Cigarettes Per Day: 1 Years Smoked: 35 e-Cigarette/Vaping Use: Currently Using Second Hand Smoke Exposure: No Use of substances other than those prescribed or required for medical reasons: No Substance Use Type: Opiates Have you been hit, kicked, punched, or otherwise hurt by someone within the past year? If so, by whom?: No Do you feel safe in your current relationship?: No Is there a partner from a previous relationship who is making you feel unsafe now?: No Are you made to feel afraid or neglected: No Advance Directives: Yes Advance Directives on File: Yes Advance Directives Date on File: 06/12/21 Do you have thoughts of harming others: None Do you have a plan to hurt others: No Plan Recently lost weight without trying: No How much weight loss: Unsure Eating poorly because of decreased appetite: No Nutrition screen score: 2 Nutrition Risks: No Nutritional Risk Patient : No : No Poor oral hygiene: No service: No Current occupational status: disabled Meds Allergies Allergy/AdvReac Type Severity Reaction Status Date / Time No Known Allergies Allergy Verified 12/14/21 10:35 [No Known Allergies*] Active Medications: Current Medications Pharmacy Consult (Consult Rx Perform Med Rec) 1 each MISCELLANE ONCE PRN PRN Reason: Consult order Home Medications Medication Instructions Recorded Confirmed Last Taken Type albuterol sulfate 90 mcg/actuation 2 puff inhalation Q4H PRN 12/30/19 12/21/21 02/21/21 History aerosol inhaler (ProAir HFA) Shortness Of Breath Or Wheezing loratadine 10 mg tablet (Claritin) 10 mg PO DAILY 12/30/19 12/21/21 02/21/21 History montelukast 10 mg tablet 10 mg PO BEDTIME 12/30/19 12/21/21 02/20/21 History diltiazem HCl 360 mg capsule,24 1 cap PO DAILY 11/16/20 12/21/21 02/21/21 History hr,extended release (Tiadylt ER) roflumilast 500 mcg tablet 1 tab PO DAILY 11/16/20 12/21/21 02/21/21 History (Daliresp) rosuvastatin 5 mg tablet 1 tab PO BEDTIME 11/16/20 12/21/21 02/20/21 History insulin lispro 100 unit/mL See Protocol subcut TIDAC 12/14/20 12/21/21 02/21/21 History subcutaneous solution (Humalog U-100 Insulin) metformin 500 mg tablet,extended 2 tab PO BID 05/18/21 12/21/21 Unknown History release 24 hr ergocalciferol (vitamin D2) 1,250 1,250 mcg PO QWEEK 06/06/21 12/21/21 Unknown History mcg (50,000 unit) capsule methadone 10 mg/mL oral concentrate 49 mg PO DAILY 06/06/21 09/24/21 07/30/21 History insulin glargine 100 unit/mL 45 unit subcut BEDTIME 06/07/21 12/21/21 Unknown History subcutaneous solution (Lantus U-100 Insulin) lisinopril 40 mg tablet 1 tab PO DAILY 07/30/21 12/21/21 Unknown History glecaprevir 100 mg-pibrentasvir 40 3 tab PO DAILY 11/02/21 12/21/21 Unknown History mg tablet (Mavyret) hydralazine 25 mg tablet 1 tab PO TID 11/02/21 12/21/21 Unknown History insulin lispro 100 unit/mL 4 unit subcut TIDAC 11/02/21 12/21/21 Unknown History subcutaneous solution omeprazole 40 mg capsule,delayed 40 mg PO DAILY@0630 11/02/21 12/21/21 Unknown History release lidocaine 5 % topical patch 1 patch topical DAILY 12/08/21 12/21/21 Unknown History (Lidoderm) Physical Exam Vital Signs and Narrative: Vital Signs: Last Vital Signs Temp 97.8 F 12/21/21 19:24 Pulse 93 12/21/21 19:24 Resp 19 12/21/21 19:24 BP 124/77 12/21/21 19:24 Pulse Ox 93 12/21/21 19:29 O2 Del Method 12/21/21 19:29 O2 Flow Rate 4 12/21/21 19:24 FiO2 30 12/21/21 16:48 Oxygen Flow Rate 2 12/21/21 19:29 BMI result Body Mass Index 41.5 Const: Other: Sitting up in bed, appears in respiratory distress General: cooperative and no acute distress Orientation/consciousness: patient oriented x3 Eyes: General: appearance normal, both eyes and all related structures Resp: Other: Using accessory muscles specially when talking to me, diminished breath sounds bilaterally Effort & Inspection: normal respiratory effort Cardio: Rate: regular rate Rhythm: regular rhythm GI: Palpation (GI): Soft to palpation Auscultation: normal bowel sounds Skin: General skin exam: no rashes or lesions noted Neuro: General: patient oriented x3 Cognition (Neuro): normal cognition Extrem: General: Yes normal to inspection and Yes no pedal edema Results Labs CBC and Chem 7: 12/21/21 18:21 12/21/21 18:21 Labs: Laboratory Results - last 24 hr 12/21/21 12/21/21 12/21/21 18:21 18:21 18:21 MCV 98.7 H MCH 29.7 MCHC 30.1 L RDW 13.8 Plt Count 259 MPV 8.9 L Immature Gran % (Auto) 1.2 H Neut % (Auto) 90.5 H Lymph % (Auto) 4.3 L Rich % (Auto) 3.7 Eos % (Auto) 0.0 Baso % (Auto) 0.3 Lymph # (Auto) 0.9 L Rich # (Auto) 0.8 Eos # (Auto) 0.0 Baso # (Auto) 0.1 Abs Immat Gran (auto) 0.26 H Absolute Neuts (auto) 19.2 H Absolute Nucleated RBC 0.000 Nucleated RBC % (auto) 0.0 Smear Tech's Comments VERIFIED PT 10.1 INR 0.9 VBG pH VBG pCO2 VBG pO2 VBG HCO3 VBG O2 Saturation VBG Base Excess Anion Gap 14 Estim Creat Clear Calc 105.9 Estimated GFR > 60 POC Glucose Random Glucose 212 H Lactic Acid Calcium 9.0 Total Bilirubin < 0.2 Direct Bilirubin < 0.2 AST 11 ALT 18 Alkaline Phosphatase 92 Troponin I High Sens B-Natriuretic Peptide Total Protein 6.1 L Albumin 3.8 COVID-19 (PAPO) COVID-19 Clin Com 12/21/21 12/21/21 12/21/21 18:21 18:21 18:24 MCV MCH MCHC RDW Plt Count MPV Immature Gran % (Auto) Neut % (Auto) Lymph % (Auto) Rich % (Auto) Eos % (Auto) Baso % (Auto) Lymph # (Auto) Rich # (Auto) Eos # (Auto) Baso # (Auto) Abs Immat Gran (auto) Absolute Neuts (auto) Absolute Nucleated RBC Nucleated RBC % (auto) Smear Tech's Comments PT INR VBG pH VBG pCO2 VBG pO2 VBG HCO3 VBG O2 Saturation VBG Base Excess Anion Gap Estim Creat Clear Calc Estimated GFR POC Glucose 189 H Random Glucose Lactic Acid Calcium Total Bilirubin Direct Bilirubin AST ALT Alkaline Phosphatase Troponin I High Sens 9.4 D B-Natriuretic Peptide 33 Total Protein Albumin COVID-19 (PAPO) Negative COVID-19 Clin Com See Note 12/21/21 12/21/21 20:58 21:00 MCV MCH MCHC RDW Plt Count MPV Immature Gran % (Auto) Neut % (Auto) Lymph % (Auto) Rich % (Auto) Eos % (Auto) Baso % (Auto) Lymph # (Auto) Rich # (Auto) Eos # (Auto) Baso # (Auto) Abs Immat Gran (auto) Absolute Neuts (auto) Absolute Nucleated RBC Nucleated RBC % (auto) Smear Tech's Comments PT INR VBG pH 7.58 H VBG pCO2 35 VBG pO2 192 VBG HCO3 33 H VBG O2 Saturation 99.0 VBG Base Excess 11.2 Anion Gap Estim Creat Clear Calc Estimated GFR POC Glucose Random Glucose Lactic Acid 1.1 Calcium Total Bilirubin Direct Bilirubin AST ALT Alkaline Phosphatase Troponin I High Sens B-Natriuretic Peptide Total Protein Albumin COVID-19 (PAPO) COVID-19 Clin Com Imaging Radiologist's Impressions: Impressions Chest X-Ray 12/21/21 17:10 IMPRESSION: No acute pulmonary process. Assessment and Plan (1) COPD mixed type: Status: Acute (2) Acute exacerbation of chronic obstructive airways disease: Status: Acute (3) Acute respiratory failure with hypoxia: Status: Acute (4) Leukocytosis: Status: Acute Plan 51-year-old female with past medical history of COPD/asthma overlap syndrome in the hospital with complaints of shortness of breath # acute hypoxic respiratory failure - patient uses 2.5 of oxygen at baseline - found to be 79%, likely secondary to COPD exacerbation - patient will be treated with Solu-Medrol, breathing treatments - titrate oxygen down to baseline use # acute COPD exacerbation - has cough, sputum production, dyspnea -no evidence of pneumonia chest x-ray -will treat with Solu-Medrol, DuoNeb and azithromycin - monitor oxygen requirement -COVID negative - will obtain respiratory viral panel # leukocytosis - chronically elevated - likely secondary to steroid use and underlying COPD - follow CBC # diabetes - continue home insulin - will add low-dose sliding scale insulin - diabetic diet # hypertension - stable - continue hypertensives DVT prophylaxis: Heparin subQ Pt will require a minimum 2 night hospital stay for needing increased oxygen, steroids IV Quality Stroke Does the patient have a stroke diagnosis?: No VTE Prior VTE?: No VTE Risk Level:: Medical - moderate - high VTE Device Contraindication: Treatment Not Indicated VTE Drug Contraindication: N/A - Med Ordered
[2021-12-21] MEDS: Albuterol/Iprat 2.5/0.5MG 3 ML AMPUL.NEB INHALE (22:59)
[2021-12-21] MEDS: Heparin Sodium,Porcine 5,000 UNIT/ML VIAL 5000 UNIT SUBCUT (23:45)
[2021-12-21] MEDS: 0.9 % Sodium Chloride Flush 3 ML SYRINGE IVFLUSH (23:46)
[2021-12-22] VITALS (12 sets, daily range): BP systolic 137–164; BP diastolic 72–81; PULSE 78–110; RESP 14–25; TEMP 36–36.8; O2SAT 88–96; BMI 41.5
--- NOTE | 2021-12-22 02:42 | PC.NURSE ---
Nurse to nurse report given to Nelson S3, floor RN. Patient o be transferred to S3 floor room 364 by respiratory technician.
[2021-12-22] MEDS: Albuterol/Iprat 2.5/0.5MG 3 ML AMPUL.NEB INHALE ×5 (03:59→20:28)
[2021-12-22] MEDS: Heparin Sodium,Porcine 5,000 UNIT/ML VIAL 5000 UNIT SUBCUT ×3 (06:01→23:10)
[2021-12-22] MEDS: Omeprazole 40 MG CAPSULE.DR PO (06:01)
[2021-12-22] MEDS: Ergocalciferol (Vitamin D2) 1,250 MCG CAPSULE 1250 MCG PO (06:01)
[2021-12-22] MEDS: methylPREDNISolone Sod Succ 40 MG/ML VIAL IVPUSH ×2 (06:01→17:02)
[2021-12-22 07:05] LABS: Basophils Percent Auto 0.1 % (0-2); Hematocrit 37.4 % (37.0-47.0); Hemoglobin 11.1 g/dl (12.0-16.0); Imm Gran Abs Auto 0.22 X10*3/uL (0.00-0.03); Imm Gran Pct Auto 1.3 % (0.0-0.4); Lymphocytes Absolute Auto 0.3 X10*3/uL (1.2-4.9); Lymphocytes Percent Auto 1.9 % (20-40); MANUAL DIFF FLAG SCAN; Mean Corpuscular HGB Conc 29.7 g/dl (31.0-35.0); Mean Corpuscular Hemoglobin 29.5 pg (27.0-33.0); Mean Corpuscular Volume 99.5 fL (80.0-98.0); Mean Platelet Volume 9.5 fL (9.4-12.3); Monocytes Absolute Auto 0.5 X10*3/uL (0.1-1.2); Monocytes Percent Auto 2.8 % (2-11); Neutrophils Percent Auto 93.9 % (45-73); Platelet Count 276 X10*3/uL (160-400); Red Blood Count 3.76 X10*6/uL (4.20-5.50); Red Cell Distribution Width 13.4 % (11.0-16.0); SCAN SMEAR FLAG 1; White Blood Count 17.1 X10*3/uL (4.8-10.8)
[2021-12-22 07:23] LABS: Anion Gap 14 (12-20); Blood Urea Nitrogen 17 mg/dL (9-16); Calcium 8.6 mg/dL (8.4-10.2); Carbon Dioxide 41 mmol/L (22-29); Chloride 91 mmol/L (96-108); Creatinine Clr Calc Pharmacy 122.1; Estimated Glomerular Filt Rate > 60; Glucose Random 295 mg/dL (60-115); Potassium 4.5 mmol/L (3.3-5.1); Sodium 141 mmol/L (135-145)
[2021-12-22 08:26] LABS: SLIDE REVIEW VERIFIED
[2021-12-22] MEDS: Insulin Lispro 100 UNIT/ML 3 ML VIAL SUBCUT ×5 (08:32→20:02)
[2021-12-22] MEDS: hydrALAZINE HCl 25 MG TABLET PO ×3 (08:34→19:41)
[2021-12-22] MEDS: Gabapentin 300 MG CAPSULE PO ×2 (08:34→19:41)
[2021-12-22] MEDS: dilTIAZem HCL CD 180 MG CAP.ER.24H 360 MG PO (08:34)
[2021-12-22] MEDS: Loratadine 10 MG TABLET PO (08:34)
[2021-12-22] MEDS: lisinopriL 40 MG TABLET PO (08:34)
[2021-12-22] MEDS: buPROPion HCL 75 MG TABLET 150 MG PO (08:34)
[2021-12-22] MEDS: 0.9 % Sodium Chloride Flush 3 ML SYRINGE IVFLUSH ×3 (08:35→19:42)
[2021-12-22] MEDS: Lidocaine 4 % Patch ADH..PATCH 1 PATCH TRANSDERMA (08:35)
[2021-12-22] MEDS: methADONE HCl 20 MG/2 ML ORAL.CONC 50 MG PO (10:45)
--- NOTE | 2021-12-22 11:25 | HO.PM.IMPN ---
Subjective Subjective Date of Service: 12/22/21 Interval History: copd excerebation Review of Systems Still shortness of breath slight somewhat better than yesterday But gets short of breath with minimal exertion Denies any chest pain or abdominal pain no fever Physical Exam Vital Signs: Vital Signs: Last Vital Signs Temp 96.8 F 12/22/21 11:07 Pulse 93 12/22/21 11:07 Resp 17 12/22/21 11:07 BP 163/81 H 12/22/21 11:07 Pulse Ox 93 12/22/21 11:07 O2 Del Method 12/22/21 11:07 O2 Flow Rate 2.0 12/22/21 11:07 FiO2 30 12/21/21 16:48 Oxygen Flow Rate 2 12/21/21 19:29 BMI result Body Mass Index 41.5 mild respiratory distress with talking Alert and oriented x3 and nonfocal neurologically Bilateral expiratory wheezing otherwise poor bilateral breath sounds Abdomen is obese with no organomegaly and nontender, bs present,norebound or guarding chest: rrr,s1s2 heard ext: pulses present , no cyanosis skin: no rash or swelling Objective Data Active Medications Acetaminophen (Acetaminophen 325 Mg Tablet) 650 mg PO Q6H PRN PRN Reason: Pain, Mild (Pain Scale 1-3) Albuterol/Ipratropium (Albuterol/Iprat 2.5/0.5mg 3 Ml Ampul.Neb) 3 ml INHALE Q4H PRN PRN Reason: Shortness of Breath/Wheezing Last Admin: 12/22/21 03:59 Dose: 3 ml Documented By: MARYSOL Albuterol/Ipratropium (Albuterol/Iprat 2.5/0.5mg 3 Ml Ampul.Neb) 3 ml INHALE RQ4H WHILE AWAKE [facility] Last Admin: 12/22/21 07:48 Dose: 3 ml Documented By: ADALIDRICCarlos Atorvastatin Calcium (Atorvastatin Calcium 20 Mg Tablet) 20 mg PO BEDTIME [facility] Azithromycin (Azithromycin 500 Mg Tablet) 500 mg PO Q24H [facility] Bupropion HCl (Bupropion Hcl 75 Mg Tablet) 150 mg PO BID [facility] Last Admin: 12/22/21 08:34 Dose: 150 mg Documented By: FLOR Diltiazem HCl (Diltiazem Hcl Cd 180 Mg Cap.Er.24h) 360 mg PO DAILY [facility]; Protocol Last Admin: 12/22/21 08:34 Dose: 360 mg Documented By: FLOR Docusate Sodium (Docusate Sodium 100 Mg Capsule) 100 mg PO DAILY PRN PRN Reason: Constipation Ergocalciferol (Ergocalciferol (Vitamin D2) 1,250 Mcg Capsule) 1,250 mcg PO Sa [facility] Last Admin: 12/22/21 06:01 Dose: 1,250 mcg Documented By: JOSE Gabapentin (Gabapentin 300 Mg Capsule) 300 mg PO BID [facility] Last Admin: 12/22/21 08:34 Dose: 300 mg Documented By: FLOR Heparin Sodium (Porcine) (Heparin Sodium,Porcine 5,000 Unit/Ml Vial) 5,000 unit SUBCUT Q8H [facility] Last Admin: 12/22/21 06:01 Dose: 5,000 unit Documented By: JOSE Hydralazine HCl (Hydralazine Hcl 25 Mg Tablet) 25 mg PO TID [facility]; Protocol Last Admin: 12/22/21 08:34 Dose: 25 mg Documented By: FLOR Insulin Glargine (Insulin Glargine,Hum.Rec.Anlog 100 Unit/Ml 10 Ml Vial) 45 unit SUBCUT BEDTIME [facility] Insulin Human Lispro (Insulin Lispro 100 Unit/Ml 3 Ml Vial) 4 unit SUBCUT TIDAC [facility] Last Admin: 12/22/21 08:32 Dose: 4 unit Documented By: FLOR Lidocaine (Lidocaine 4 % Patch Adh..Patch) 1 patch TRANSDERMA DAILY [facility] Last Admin: 12/22/21 08:35 Dose: 1 patch Documented By: FLOR Lisinopril (Lisinopril 40 Mg Tablet) 40 mg PO DAILY [facility]; Protocol Last Admin: 12/22/21 08:34 Dose: 40 mg Documented By: FLOR Loratadine (Loratadine 10 Mg Tablet) 10 mg PO DAILY [facility] Last Admin: 12/22/21 08:34 Dose: 10 mg Documented By: FLOR Methadone HCl (Methadone Hcl 20 Mg/2 Ml Oral.Conc) 50 mg PO DAILY [facility] Last Admin: 12/22/21 10:45 Dose: 50 mg Documented By: FLOR Methylprednisolone Sodium Succinate (Methylprednisolone Sod Succ 40 Mg/Ml Vial) 40 mg IVPUSH Q12H [facility] Last Admin: 12/22/21 06:01 Dose: 40 mg Documented By: JOSE Montelukast Sodium (Montelukast Sodium 10 Mg Tablet) 10 mg PO BEDTIME [facility] Non-Formulary Medication (Arformoterol [Brovana]) 2 ml INHALE Q12H [facility] Non-Formulary Medication (Diclofenac Potassium) 50 mg PO BID [facility] Non-Formulary Medication (Glecaprevir-Pibrentasvir [Mavyret]) 3 tab PO DAILY [facility] Non-Formulary Medication (Roflumilast [Daliresp]) 1 tab PO DAILY [facility] Non-Formulary Medication (Theophylline) 450 mg PO Q12H [facility] Omeprazole (Omeprazole 40 Mg Capsule.Dr) 40 mg PO DAILY@0630 [facility] Last Admin: 12/22/21 06:01 Dose: 40 mg Documented By: JOSE Ondansetron HCl (Ondansetron Hcl 4 Mg/2 Ml Vial) 4 mg IVPUSH Q8H PRN PRN Reason: Nausea and Vomiting Pharmacy Consult (Consult Rx Perform Med Rec) 1 each MISCELLANE ONCE PRN PRN Reason: Consult order Sodium Chloride (0.9 % Sodium Chloride Flush 3 Ml Syringe) 3 ml IVFLUSH QSHIFT [facility] Last Admin: 12/22/21 08:35 Dose: 3 ml Documented By: FLOR Labs CBC & Chem 7: 12/22/21 05:55 12/22/21 05:55 Labs: Laboratory Results - last 24 hr 12/21/21 12/21/21 12/21/21 18:21 18:21 18:21 MCV 98.7 H MCH 29.7 MCHC 30.1 L RDW 13.8 Plt Count 259 MPV 8.9 L Immature Gran % (Auto) 1.2 H Neut % (Auto) 90.5 H Lymph % (Auto) 4.3 L [place] % (Auto) 3.7 Eos % (Auto) 0.0 Baso % (Auto) 0.3 Lymph # (Auto) 0.9 L [place] # (Auto) 0.8 Eos # (Auto) 0.0 Baso # (Auto) 0.1 Abs Immat Gran (auto) 0.26 H Absolute Neuts (auto) 19.2 H Absolute Nucleated RBC 0.000 Nucleated RBC % (auto) 0.0 Smear Tech's Comments VERIFIED PT 10.1 INR 0.9 VBG pH VBG pCO2 VBG pO2 VBG HCO3 VBG O2 Saturation VBG Base Excess Anion Gap 14 Estim Creat Clear Calc 105.9 Estimated GFR > 60 POC Glucose Random Glucose 212 H Lactic Acid Calcium 9.0 Total Bilirubin < 0.2 Direct Bilirubin < 0.2 AST 11 ALT 18 Alkaline Phosphatase 92 Troponin I High Sens B-Natriuretic Peptide Total Protein 6.1 L Albumin 3.8 COVID-19 (PAPO) COVID-19 Clin Com 12/21/21 12/21/21 12/21/21 18:21 18:21 18:24 MCV MCH MCHC RDW Plt Count MPV Immature Gran % (Auto) Neut % (Auto) Lymph % (Auto) [place] % (Auto) Eos % (Auto) Baso % (Auto) Lymph # (Auto) [place] # (Auto) Eos # (Auto) Baso # (Auto) Abs Immat Gran (auto) Absolute Neuts (auto) Absolute Nucleated RBC Nucleated RBC % (auto) Smear Tech's Comments PT INR VBG pH VBG pCO2 VBG pO2 VBG HCO3 VBG O2 Saturation VBG Base Excess Anion Gap Estim Creat Clear Calc Estimated GFR POC Glucose 189 H Random Glucose Lactic Acid Calcium Total Bilirubin Direct Bilirubin AST ALT Alkaline Phosphatase Troponin I High Sens 9.4 D B-Natriuretic Peptide 33 Total Protein Albumin COVID-19 (PAPO) Negative COVID-19 Clin Com See Note 12/21/21 12/21/21 12/22/21 20:58 21:00 05:55 MCV 99.5 H MCH 29.5 MCHC 29.7 L RDW 13.4 Plt Count 276 MPV 9.5 Immature Gran % (Auto) 1.3 H Neut % (Auto) 93.9 H Lymph % (Auto) 1.9 L [place] % (Auto) 2.8 Eos % (Auto) 0.0 Baso % (Auto) 0.1 Lymph # (Auto) 0.3 L [place] # (Auto) 0.5 Eos # (Auto) 0.0 Baso # (Auto) 0.0 Abs Immat Gran (auto) 0.22 H Absolute Neuts (auto) 16.0 H Absolute Nucleated RBC 0.000 Nucleated RBC % (auto) 0.0 Smear Tech's Comments VERIFIED PT INR VBG pH 7.58 H VBG pCO2 35 VBG pO2 192 VBG HCO3 33 H VBG O2 Saturation 99.0 VBG Base Excess 11.2 Anion Gap Estim Creat Clear Calc Estimated GFR POC Glucose Random Glucose Lactic Acid 1.1 Calcium Total Bilirubin Direct Bilirubin AST ALT Alkaline Phosphatase Troponin I High Sens B-Natriuretic Peptide Total Protein Albumin COVID-19 (PAPO) COVID-19 Clin Com 12/22/21 12/22/21 05:55 08:10 MCV MCH MCHC RDW Plt Count MPV Immature Gran % (Auto) Neut % (Auto) Lymph % (Auto) [place] % (Auto) Eos % (Auto) Baso % (Auto) Lymph # (Auto) [place] # (Auto) Eos # (Auto) Baso # (Auto) Abs Immat Gran (auto) Absolute Neuts (auto) Absolute Nucleated RBC Nucleated RBC % (auto) Smear Tech's Comments PT INR VBG pH VBG pCO2 VBG pO2 VBG HCO3 VBG O2 Saturation VBG Base Excess Anion Gap 14 Estim Creat Clear Calc 122.1 Estimated GFR > 60 POC Glucose 243 H Random Glucose 295 H Lactic Acid Calcium 8.6 Total Bilirubin Direct Bilirubin AST ALT Alkaline Phosphatase Troponin I High Sens B-Natriuretic Peptide Total Protein Albumin COVID-19 (PAPO) COVID-19 Clin Com Assessment and Plan (1) Leukocytosis: Status: Acute (2) Acute respiratory failure with hypoxia: Status: Acute (3) COPD mixed type: Status: Acute (4) Leukocytosis: Status: Acute (5) Alkalosis: Status: Acute Plan 51-year-old lady with underlying morbid obesity, asthma/ COPD overlap syndrome, obesity hypoventilation, on 2 L of supplemental oxygen, nocturnal BiPAP hypogammaglobulinemia on IVIG, opioid dependence on methadone, diabetes mellitus, hypertension, admitted on 06/06/2021 with dyspnea and hypoxia .? Acute on chronic hypoxic hypercapnic respiratory failure secondary to COPD exacerbation. little improvement-seems similar to yesterday ?? Leukocytosis trending down possibly related to on and off steroid use. Patient started on steroids, nebs, continue theophyllin, oxygen support to keep sats around 92 range Added pulmonary evaluation, if patient condition worsen may need to repeat ABG and need to consider ICU evaluation. alkalosis possible Secondary to ch respiratory failure will add dimox x1 dose Follow BMP DM possible type 2:100-200 range( possible related to steriod use). Monitor fingersticks with sliding scale coverage. ?Opioid dependence continue methadone Hypertension: Fluctuating ?Continue home medications. Morbid obesity: Encouraged to cut down calories, weightloss . DVT PPX Lovenox ?inpatient need: ? acute on chronic hypoxic hypercapnic respiratory failure secondary to COPD exacerbation-needs IV steroid, oxygen support and nebs. Quality Stroke Does the patient have a stroke diagnosis?: No VTE Prior VTE?: No VTE Risk Level:: Medical - moderate - high VTE Device Contraindication: Treatment Not Indicated VTE Drug Contraindication: N/A - Med Ordered
[2021-12-22] MEDS: acetaZOLAMIDE 250 MG TABLET PO (11:42)
--- NOTE | 2021-12-22 15:13 | PC.NURSE ---
Pt has been awake anxious A&O. O2 3-4l. continuous o2 sat constantly fluctuating between 79 to 98 %. pt denies resp distress. talking in full sentences eating 100% of meals. up to commode independently. Pt also independent with c-pap. Dr Guillermo aware of all stated.
[2021-12-22] MEDS: Throat Lozenge, Medicated LOZENGE 1 LOZENGE MUCOUS MEM (17:54)
[2021-12-22] MEDS: Azithromycin 500 MG TABLET PO (19:41)
[2021-12-22] MEDS: Atorvastatin Calcium 20 MG TABLET PO (19:41)
[2021-12-22] MEDS: Montelukast Sodium 10 MG TABLET PO (19:41)
[2021-12-22] MEDS: Insulin Glargine,Hum.rec.anlog 100 UNIT/ML 10 ML VIAL 45 UNIT SUBCUT (20:02)
[2021-12-23] VITALS (12 sets, daily range): BP systolic 132–160; BP diastolic 73–89; PULSE 76–103; RESP 15–20; TEMP 36.1–37.2; O2SAT 90–95
[2021-12-23] MEDS: Albuterol/Iprat 2.5/0.5MG 3 ML AMPUL.NEB INHALE ×5 (00:05→19:11)
[2021-12-23] MEDS: methylPREDNISolone Sod Succ 40 MG/ML VIAL IVPUSH ×2 (05:57→17:16)
[2021-12-23] MEDS: Heparin Sodium,Porcine 5,000 UNIT/ML VIAL 5000 UNIT SUBCUT ×3 (05:57→22:36)
[2021-12-23] MEDS: Omeprazole 40 MG CAPSULE.DR PO (05:57)
[2021-12-23] MEDS: Loratadine 10 MG TABLET PO (08:11)
[2021-12-23] MEDS: lisinopriL 40 MG TABLET PO (08:11)
[2021-12-23] MEDS: Gabapentin 300 MG CAPSULE PO ×2 (08:11→20:24)
[2021-12-23] MEDS: buPROPion HCL 75 MG TABLET 150 MG PO ×2 (08:11→20:24)
[2021-12-23] MEDS: 0.9 % Sodium Chloride Flush 3 ML SYRINGE IVFLUSH ×2 (08:12→19:44)
[2021-12-23] MEDS: hydrALAZINE HCl 25 MG TABLET PO ×3 (08:12→20:23)
[2021-12-23] MEDS: dilTIAZem HCL CD 180 MG CAP.ER.24H 360 MG PO (08:12)
[2021-12-23] MEDS: methADONE HCl 20 MG/2 ML ORAL.CONC 50 MG PO (08:12)
[2021-12-23] MEDS: Insulin Lispro 100 UNIT/ML 3 ML VIAL SUBCUT ×7 (08:13→20:26)
[2021-12-23] MEDS: Lidocaine 4 % Patch ADH..PATCH 1 PATCH TRANSDERMA (08:17)
--- NOTE | 2021-12-23 09:07 | MHC.CM.PN ---
Interview conducted w/primary contact Latonia Conrad ([email or web address]). Patient lives at home and has daily [employer] and nurse services that come in to the home. Latonia unable to recall name of agency during interview, but will connect w/CM dept when she identifies the information so CM dept can send agency updated information for hospital D/C. Patient owns rolling walker, but would like no-wheeled walker given she has a hard time instituting breaks on the rolling walker. Patient does not drive; family drives patient to/from appts. Plan is home w/return of services (when Latonia calls back w/name of agency), via family. CM to follow.
[2021-12-23 09:15] LABS: Anion Gap 16 (12-20); Blood Urea Nitrogen 23 mg/dL (9-16); Calcium 9.4 mg/dL (8.4-10.2); Carbon Dioxide 32 mmol/L (22-29); Chloride 97 mmol/L (96-108); Creatinine Clr Calc Pharmacy 118.1; Estimated Glomerular Filt Rate > 60; Glucose Random 278 mg/dL (60-115); Potassium 5.1 mmol/L (3.3-5.1); Sodium 140 mmol/L (135-145)
--- NOTE | 2021-12-23 12:20 | HO.PM.IMPN ---
Subjective Subjective Date of Service: 12/23/21 Interval History: copd excerebation Review of Systems Still shortness of breath slight somewhat better than yesterday But gets short of breath with minimal exertion Denies any chest pain or abdominal pain no fever Physical Exam Vital Signs: Vital Signs: Last Vital Signs Temp 98.0 F 12/23/21 12:00 Pulse 103 H 12/23/21 12:00 Resp 18 12/23/21 12:00 BP 132/85 12/23/21 12:00 Pulse Ox 91 L 12/23/21 12:00 O2 Del Method 12/23/21 12:00 O2 Flow Rate 3.0 12/23/21 12:00 FiO2 30 12/21/21 16:48 Oxygen Flow Rate 4 12/22/21 16:00 BMI result Body Mass Index 41.5 mild respiratory distress with talking Alert and oriented x3 and nonfocal neurologically Bilateral expiratory wheezing otherwise poor bilateral breath sounds Abdomen is obese with no organomegaly and nontender, bs present,norebound or guarding chest: rrr,s1s2 heard ext: pulses present , no cyanosis skin: no rash or swelling Objective Data Active Medications Acetaminophen (Acetaminophen 325 Mg Tablet) 650 mg PO Q6H PRN PRN Reason: Pain, Mild (Pain Scale 1-3) Albuterol/Ipratropium (Albuterol/Iprat 2.5/0.5mg 3 Ml Ampul.Neb) 3 ml INHALE Q4H PRN PRN Reason: Shortness of Breath/Wheezing Last Admin: 12/22/21 03:59 Dose: 3 ml Documented By: MARYSOL Albuterol/Ipratropium (Albuterol/Iprat 2.5/0.5mg 3 Ml Ampul.Neb) 3 ml INHALE RQ4H WHILE AWAKE [facility] Last Admin: 12/23/21 08:01 Dose: 3 ml Documented By: ADALIDRICCarlos Atorvastatin Calcium (Atorvastatin Calcium 20 Mg Tablet) 20 mg PO BEDTIME [facility] Last Admin: 12/22/21 19:41 Dose: 20 mg Documented By: JOSE Azithromycin (Azithromycin 500 Mg Tablet) 500 mg PO Q24H [facility] Last Admin: 12/22/21 19:41 Dose: 500 mg Documented By: JOSE Benzocaine (Throat Lozenge, Medicated Lozenge) 1 lozenge MUCOUS MEM Q2H PRN PRN Reason: Sore Throat Last Admin: 12/22/21 17:54 Dose: 1 lozenge Documented By: MARYANN Bupropion HCl (Bupropion Hcl 75 Mg Tablet) 150 mg PO BID [facility] Last Admin: 12/23/21 08:11 Dose: 150 mg Documented By: FLOR Dextrose (Dextrose 50 % 25 Gm/50 Ml Syringe) 25 gm IVPUSH Q15M PRN; Protocol PRN Reason: per Hypoglycemia Standing Ord. Diltiazem HCl (Diltiazem Hcl Cd 180 Mg Cap.Er.24h) 360 mg PO DAILY [facility]; Protocol Last Admin: 12/23/21 08:12 Dose: 360 mg Documented By: FLOR Docusate Sodium (Docusate Sodium 100 Mg Capsule) 100 mg PO DAILY PRN PRN Reason: Constipation Ergocalciferol (Ergocalciferol (Vitamin D2) 1,250 Mcg Capsule) 1,250 mcg PO Sa [facility] Last Admin: 12/22/21 06:01 Dose: 1,250 mcg Documented By: JOSE Gabapentin (Gabapentin 300 Mg Capsule) 300 mg PO BID [facility] Last Admin: 12/23/21 08:11 Dose: 300 mg Documented By: FLOR Glucose (Glucose Gel 15 Gm Gel..Gram.) 15 gm PO Q15M PRN; Protocol PRN Reason: per Hypoglycemia Standing Ord. Heparin Sodium (Porcine) (Heparin Sodium,Porcine 5,000 Unit/Ml Vial) 5,000 unit SUBCUT Q8H [facility] Last Admin: 12/23/21 05:57 Dose: 5,000 unit Documented By: JOSE Hydralazine HCl (Hydralazine Hcl 25 Mg Tablet) 25 mg PO TID [facility]; Protocol Last Admin: 12/23/21 08:12 Dose: 25 mg Documented By: FLOR Insulin Glargine (Insulin Glargine,Hum.Rec.Anlog 100 Unit/Ml 10 Ml Vial) 45 unit SUBCUT BEDTIME [facility] Last Admin: 12/22/21 20:02 Dose: 45 unit Documented By: JOSE Insulin Human Lispro (Insulin Lispro 100 Unit/Ml 3 Ml Vial) 0 unit SUBCUT QIDACHS [facility]; Protocol Last Admin: 12/23/21 11:49 Dose: 6 unit Documented By: FLOR Insulin Human Lispro (Insulin Lispro 100 Unit/Ml 3 Ml Vial) 4 unit SUBCUT TIDAC [facility] Last Admin: 12/23/21 11:50 Dose: 4 unit Documented By: FLOR Lidocaine (Lidocaine 4 % Patch Adh..Patch) 1 patch TRANSDERMA DAILY [facility] Last Admin: 12/23/21 08:17 Dose: 1 patch Documented By: FLOR Lisinopril (Lisinopril 40 Mg Tablet) 40 mg PO DAILY [facility]; Protocol Last Admin: 12/23/21 08:11 Dose: 40 mg Documented By: FLOR Loratadine (Loratadine 10 Mg Tablet) 10 mg PO DAILY [facility] Last Admin: 12/23/21 08:11 Dose: 10 mg Documented By: FLOR Methadone HCl (Methadone Hcl 20 Mg/2 Ml Oral.Conc) 50 mg PO DAILY [facility] Last Admin: 12/23/21 08:12 Dose: 50 mg Documented By: FLOR Methylprednisolone Sodium Succinate (Methylprednisolone Sod Succ 40 Mg/Ml Vial) 40 mg IVPUSH Q12H [facility] Last Admin: 12/23/21 05:57 Dose: 40 mg Documented By: JOSE Montelukast Sodium (Montelukast Sodium 10 Mg Tablet) 10 mg PO BEDTIME [facility] Last Admin: 12/22/21 19:41 Dose: 10 mg Documented By: JOSE Non-Formulary Medication (Arformoterol [Brovana]) 2 ml INHALE Q12H [facility] Non-Formulary Medication (Diclofenac Potassium) 50 mg PO BID [facility] Non-Formulary Medication (Glecaprevir-Pibrentasvir [Mavyret]) 3 tab PO DAILY [facility] Non-Formulary Medication (Roflumilast [Daliresp]) 1 tab PO DAILY [facility] Non-Formulary Medication (Theophylline) 450 mg PO Q12H [facility] Omeprazole (Omeprazole 40 Mg Capsule.Dr) 40 mg PO DAILY@0630 [facility] Last Admin: 12/23/21 05:57 Dose: 40 mg Documented By: JOSE Ondansetron HCl (Ondansetron Hcl 4 Mg/2 Ml Vial) 4 mg IVPUSH Q8H PRN PRN Reason: Nausea and Vomiting Pharmacy Consult (Consult Rx Perform Med Rec) 1 each MISCELLANE ONCE PRN PRN Reason: Consult order Sodium Chloride (0.9 % Sodium Chloride Flush 3 Ml Syringe) 3 ml IVFLUSH QSHIFT [facility] Last Admin: 12/23/21 08:12 Dose: 3 ml Documented By: FLOR Labs CBC & Chem 7: 12/22/21 05:55 12/23/21 07:45 Labs: Laboratory Results - last 24 hr 12/22/21 12/22/21 12/23/21 15:48 19:42 07:36 Anion Gap Estim Creat Clear Calc Estimated GFR POC Glucose 163 H 263 H 293 H Random Glucose Calcium 12/23/21 12/23/21 07:45 11:11 Anion Gap 16 Estim Creat Clear Calc 118.1 Estimated GFR > 60 POC Glucose 267 H Random Glucose 278 H Calcium 9.4 D Microbiology Microbiology Results: Microbiology 12/21/21 18:21 Blood Culture - Preliminary Blood - Venous No growth after 24 hours. 12/21/21 18:21 Blood Culture - Preliminary Blood - Venous No growth after 24 hours. Assessment and Plan (1) Leukocytosis: Status: Acute (2) Acute respiratory failure with hypoxia: Status: Acute (3) COPD mixed type: Status: Acute (4) Leukocytosis: Status: Acute (5) Alkalosis: Status: Acute Plan 51-year-old lady with underlying morbid obesity, asthma/ COPD overlap syndrome, obesity hypoventilation, on 2 L of supplemental oxygen, nocturnal BiPAP hypogammaglobulinemia on IVIG, opioid dependence on methadone, diabetes mellitus, hypertension, admitted on 06/06/2021 with dyspnea and hypoxia .? Acute on chronic hypoxic hypercapnic respiratory failure secondary to COPD exacerbation. little improvement-seems similar to yesterday ?? Leukocytosis trending down possibly related to on and off steroid use. Patient started on steroids, nebs, continue theophyllin, oxygen support to keep sats around 92 range Added pulmonary evaluation, if patient condition worsen may need to repeat ABG and need to consider ICU evaluation. alkalosis possible Secondary to ch respiratory failure will add dimox x1 dose Follow BMP DM possible type 2:100-200 range( possible related to steriod use). Monitor fingersticks with sliding scale coverage. ?Opioid dependence continue methadone Hypertension: Fluctuating ?Continue home medications. Morbid obesity: Encouraged to cut down calories, weightloss . DVT PPX Lovenox ?inpatient need: ? acute on chronic hypoxic hypercapnic respiratory failure secondary to COPD exacerbation-needs IV steroid, oxygen support and nebs. Quality Stroke Does the patient have a stroke diagnosis?: No VTE Prior VTE?: No VTE Risk Level:: Medical - moderate - high VTE Device Contraindication: Treatment Not Indicated VTE Drug Contraindication: N/A - Med Ordered
[2021-12-23] MEDS: Azithromycin 500 MG TABLET PO (19:44)
[2021-12-23] MEDS: Throat Lozenge, Medicated LOZENGE 1 LOZENGE MUCOUS MEM (20:22)
[2021-12-23] MEDS: Montelukast Sodium 10 MG TABLET PO (20:24)
[2021-12-23] MEDS: Atorvastatin Calcium 20 MG TABLET PO (20:24)
[2021-12-23] MEDS: Insulin Glargine,Hum.rec.anlog 100 UNIT/ML 10 ML VIAL 45 UNIT SUBCUT (20:25)
[2021-12-24] VITALS (15 sets, daily range): BP systolic 146–165; BP diastolic 81–95; PULSE 81–99; RESP 17–22; TEMP 35.6–37.1; O2SAT 90–98
[2021-12-24 01:36] LABS: Glucose, Whole Blood 274 mg/dL (60-115)
[2021-12-24] MEDS: Morphine Sulfate 4 MG/ML CARTRIDGE IVPUSH (05:25)
[2021-12-24 05:31] LABS: Glucose, Whole Blood 259 mg/dL (60-115)
[2021-12-24] MEDS: methylPREDNISolone Sod Succ 40 MG/ML VIAL IVPUSH ×2 (05:40→18:15)
[2021-12-24] MEDS: Omeprazole 40 MG CAPSULE.DR PO (06:39)
[2021-12-24] MEDS: Heparin Sodium,Porcine 5,000 UNIT/ML VIAL 5000 UNIT SUBCUT ×3 (06:39→22:22)
--- NOTE | 2021-12-24 06:42 | PC.NURSE ---
pt had hypoxic episode at 05:25 with facial bi-pap on. O2 monitor was 70s to 80s. Dr. Vega ordered 4mg morphine. given by MAIN Jacob at05:25. Respiratory therapist fixed bi-pap with 3L. now 100%. pt sitting on the bed with comfortable.
--- NOTE | 2021-12-24 06:44 | PM.EVENT ---
Event Note Date of Service: 12/24/21 Event Note: A rapid response was called on this patient around 05:30 because hypoxia was noted on telemetry. Patient was sleeping during this time. On my arrival patient was awake at this point, her pulse ox was showing 79%. She was on BiPAP while this was happening. We removed the BiPAP, placed her on a non-rebreather, with O2 improving, we changed the O2 to a different pulse ox, place her back on the BiPAP and she was 100%. At this point I do not believe that the hypoxia was accurate, and the reading was inaccurate due to hair or pulse ox placement. Patient was placed back on her original BiPAP setting with baseline O2 requirement, satting 98-100%. Patient denies any shortness of breath herself, change in her respiratory status.
[2021-12-24] MEDS: buPROPion HCL 75 MG TABLET 150 MG PO (08:24)
[2021-12-24] MEDS: Loratadine 10 MG TABLET PO (08:24)
[2021-12-24] MEDS: lisinopriL 40 MG TABLET PO (08:24)
[2021-12-24] MEDS: Lidocaine 4 % Patch ADH..PATCH 1 PATCH TRANSDERMA (08:25)
[2021-12-24] MEDS: dilTIAZem HCL CD 180 MG CAP.ER.24H 360 MG PO (08:25)
[2021-12-24] MEDS: Gabapentin 300 MG CAPSULE PO ×2 (08:25→20:34)
[2021-12-24] MEDS: hydrALAZINE HCl 25 MG TABLET PO ×3 (08:25→20:34)
[2021-12-24] MEDS: methADONE HCl 20 MG/2 ML ORAL.CONC 50 MG PO (08:25)
[2021-12-24] MEDS: 0.9 % Sodium Chloride Flush 3 ML SYRINGE IVFLUSH ×3 (08:26→20:34)
[2021-12-24 08:33] LABS: Glucose, Whole Blood 246 mg/dL (60-115)
[2021-12-24] MEDS: Insulin Lispro 100 UNIT/ML 3 ML VIAL SUBCUT ×7 (08:33→20:35)
[2021-12-24 09:03] LABS: Adenovirus PCR Not Detected (Not Detect.); Bordetella parapertussis PCR Not Detected (Not Detect.); Bordetella pertussis PCR Not Detected (Not Detect.); Chlamydia pneumoniae PCR Not Detected (Not Detect.); Coronavirus 229E PCR Not Detected (Not Detect.); Coronavirus HKU1 PCR Not Detected (Not Detect.); Coronavirus NL63 PCR Not Detected (Not Detect.); Coronavirus OC43 PCR Not Detected (Not Detect.); Human metapneumovirus PCR Not Detected (Not Detect.); Influenza A PCR Not Detected (Not Detect.); Influenza B PCR Not Detected (Not Detect.); Mycoplasma pneumoniae PCR Not Detected (Not Detect.); Parainfluenza 1 PCR Not Detected (Not Detect.); Rhino/Enterovirus PCR Not Detected (Not Detect.); SARS-CoV-2 PCR Not Detected (Not Detect.)
[2021-12-24 09:04] LABS: Parainfluenza 2 PCR Not Detected (Not Detect.); Parainfluenza 3 PCR Not Detected (Not Detect.); Parainfluenza 4 PCR Not Detected (Not Detect.); RSV PCR Detected (Not Detect.)
[2021-12-24] MEDS: Albuterol/Iprat 2.5/0.5MG 3 ML AMPUL.NEB INHALE ×5 (09:08→18:59)
[2021-12-24 11:20] LABS: Glucose, Whole Blood 222 mg/dL (60-115)
[2021-12-24] MEDS: Magnesium Sulfate/D5W 1 GM/100 ML PIGGYBACK IV (11:22)
--- NOTE | 2021-12-24 11:34 | P.PNIM_ITS ---
Subjective Subjective Date of Service: 12/24/21 Interval History: COPD exacerbation Review of Systems Shortness of breath somewhat similar to yesterday she said she had some short of breath last night but otherwise denies any new complaints. No cough or fever or chills. Physical Exam Vital Signs: Vital Signs: Last Vital Signs Temp 98.7 F 12/24/21 11:07 Pulse 91 12/24/21 11:07 Resp 22 H 12/24/21 11:07 BP 146/92 H 12/24/21 11:07 Pulse Ox 90 L 12/24/21 11:07 O2 Del Method 12/24/21 11:07 O2 Flow Rate 3.0 12/23/21 18:51 FiO2 30 12/21/21 16:48 Oxygen Flow Rate 4 12/22/21 16:00 BMI result Body Mass Index 41.5 mild respiratory distress with talking Alert and oriented x3 and nonfocal neurologically Bilateral expiratory wheezing otherwise poor bilateral breath sounds Abdomen is obese with no organomegaly and nontender, bs present,norebound or guarding chest: rrr,[id number] heard ext: pulses present , no cyanosis skin: no rash or swelling Objective Data Active Medications Acetaminophen (Acetaminophen 325 Mg Tablet) 650 mg PO Q6H PRN PRN Reason: Pain, Mild (Pain Scale 1-3) Albuterol/Ipratropium (Albuterol/Iprat 2.5/0.5mg 3 Ml Ampul.Neb) 3 ml INHALE Q4H PRN PRN Reason: Shortness of Breath/Wheezing Last Admin: 12/22/21 03:59 Dose: 3 ml Documented By: MARYSOL Albuterol/Ipratropium (Albuterol/Iprat 2.5/0.5mg 3 Ml Ampul.Neb) 3 ml INHALE RQ4H WHILE AWAKE [facility] Last Admin: 12/24/21 09:08 Dose: 3 ml Documented By: BI Atorvastatin Calcium (Atorvastatin Calcium 20 Mg Tablet) 20 mg PO BEDTIME ANA Last Admin: 12/23/21 20:24 Dose: 20 mg Documented By: CRYS Azithromycin (Azithromycin 500 Mg Tablet) 500 mg PO Q24H [facility] Last Admin: 12/23/21 19:44 Dose: 500 mg Documented By: CRYS Benzocaine (Throat Lozenge, Medicated Lozenge) 1 lozenge MUCOUS MEM Q2H PRN PRN Reason: Sore Throat Last Admin: 12/23/21 20:22 Dose: 1 lozenge Documented By: CRYS Bupropion HCl (Bupropion Hcl 75 Mg Tablet) 150 mg PO BID [facility] Last Admin: 12/24/21 08:24 Dose: 150 mg Documented By: MILIND Dextrose (Dextrose 50 % 25 Gm/50 Ml Syringe) 25 gm IVPUSH Q15M PRN; Protocol PRN Reason: per Hypoglycemia Standing Ord. Diltiazem HCl (Diltiazem Hcl Cd 180 Mg Cap.Er.24h) 360 mg PO DAILY ANA; Prot ocol Last Admin: 12/24/21 08:25 Dose: 360 mg Documented By: MILIND Docusate Sodium (Docusate Sodium 100 Mg Capsule) 100 mg PO DAILY PRN PRN Reason: Constipation Ergocalciferol (Ergocalciferol (Vitamin D2) 1,250 Mcg Capsule) 1,250 mcg PO Sa [facility] Last Admin: 12/22/21 06:01 Dose: 1,250 mcg Documented By: CASTKIRTI Gabapentin (Gabapentin 300 Mg Capsule) 300 mg PO BID [facility] Last Admin: 12/24/21 08:25 Dose: 300 mg Documented By: MILIND Glucose (Glucose Gel 15 Gm Gel..Gram.) 15 gm PO Q15M PRN; Protocol PRN Reason: per Hypoglycemia Standing Ord. Heparin Sodium (Porcine) (Heparin Sodium,Porcine 5,000 Unit/Ml Vial) 5,000 unit SUBCUT Q8H [facility] Last Admin: 12/24/21 06:39 Dose: 5,000 unit Documented By: CRYS Hydralazine HCl (Hydralazine Hcl 25 Mg Tablet) 25 mg PO TID [facility]; Protocol Last Admin: 12/24/21 08:25 Dose: 25 mg Documented By: MILIND Insulin Glargine (Insulin Glargine,Hum.Rec.Anlog 100 Unit/Ml 10 Ml Vial) 45 unit SUBCUT BEDTIME [facility] Last Admin: 12/23/21 20:25 Dose: 45 unit Documented By: CRYS Insulin Human Lispro (Insulin Lispro 100 Unit/Ml 3 Ml Vial) 0 unit SUBCUT QIDACHS [facility]; Protocol Last Admin: 12/24/21 08:34 Dose: 4 unit Documented By: MILIND Insulin Human Lispro (Insulin Lispro 100 Unit/Ml 3 Ml Vial) 4 unit SUBCUT TIDAC [facility] Last Admin: 12/24/21 08:33 Dose: 4 unit Documented By: MILIND Lidocaine (Lidocaine 4 % Patch Adh..Patch) 1 patch TRANSDERMA DAILY [facility] Last Admin: 12/24/21 08:25 Dose: 1 patch Documented By: MILIND Lisinopril (Lisinopril 40 Mg Tablet) 40 mg PO DAILY [facility]; Protocol Last Admin: 12/24/21 08:24 Dose: 40 mg Documented By: MILIND Loratadine (Loratadine 10 Mg Tablet) 10 mg PO DAILY [facility] Last Admin: 12/24/21 08:24 Dose: 10 mg Documented By: MILIND Methadone HCl (Methadone Hcl 20 Mg/2 Ml Oral.Conc) 50 mg PO DAILY [facility] Last Admin: 12/24/21 08:25 Dose: 50 mg Documented By: MILIND Methylprednisolone Sodium Succinate (Methylprednisolone Sod Succ 40 Mg/Ml Vial) 40 mg IVPUSH Q12H [facility] Last Admin: 12/24/21 05:40 Dose: 40 mg Documented By: CRYS Montelukast Sodium (Montelukast Sodium 10 Mg Tablet) 10 mg PO BEDTIME [facility] Last Admin: 12/23/21 20:24 Dose: 10 mg Documented By: CRYS Non-Formulary Medication (Arformoterol [Brovana]) 2 ml INHALE Q12H [facility] Non-Formulary Medication (Diclofenac Potassium) 50 mg PO BID [facility] Non-Formulary Medication (Glecaprevir-Pibrentasvir [Mavyret]) 3 tab PO DAILY [facility] Non-Formulary Medication (Roflumilast [Daliresp]) 1 tab PO DAILY [facility] Non-Formulary Medication (Theophylline) 450 mg PO Q12H [facility] Omeprazole (Omeprazole 40 Mg Capsule.Dr) 40 mg PO DAILY@0630 [facility] Last Admin: 12/24/21 06:39 Dose: 40 mg Documented By: CRYS Ondansetron HCl (Ondansetron Hcl 4 Mg/2 Ml Vial) 4 mg IVPUSH Q8H PRN PRN Reason: Nausea and Vomiting Pharmacy Consult (Consult Rx Perform Med Rec) 1 each MISCELLANE ONCE PRN PRN Reason: Consult order Sodium Chloride (0.9 % Sodium Chloride Flush 3 Ml Syringe) 3 ml IVFLUSH QSHIFT ANA Last Admin: 12/24/21 08:26 Dose: 3 ml Documented By: MILIND Labs CBC & Chem 7: 12/22/21 05:55 12/23/21 07:45 Labs: Laboratory Results - last 24 hr 12/22/21 12/23/21 12/23/21 19:54 14:30 16:01 POC Glucose 168 H Respiratory Panel Holder Cancelled See Note Adenovirus (Rapid PCR) Cancelled Not Detected B.pert (TEM-PCR) Cancelled Not Detected B.parapertussis DNA PCR Cancelled Not Detected C. pneumoniae DNA (PCR) Cancelled Not Detected Coronavirus OC43 (PCR) Cancelled Not Detected Coronavirus HKU1 (PCR) Cancelled Not Detected Coronavirus 229E (PCR) Cancelled Not Detected Coronavirus NL63 (PCR) Cancelled Not Detected Human Metapneumovir PCR Cancelled Not Detected Influenza A (RT-PCR) Cancelled Not Detected Influenza B (RT-PCR) Cancelled Not Detected M. pneumoniae (PCR) Cancelled Not Detected Parainfluenza 1 (PCR) Cancelled Not Detected Parainfluenza 2 (PCR) Cancelled Not Detected Parainfluenza 3 (PCR) Cancelled Not Detected Parainfluenza 4 (PCR) Cancelled Not Detected RSV (PCR) Cancelled Detected A Entero/Rhino (PCR) Cancelled Not Detected SARS-CoV-2 RNA (RT-PCR) Cancelled Not Detected 12/23/21 12/24/21 12/24/21 19:32 01:32 05:25 POC Glucose 250 H 274 H 259 H Respiratory Panel Holder Adenovirus (Rapid PCR) B.pert (TEM-PCR) B.parapertussis DNA PCR C. pneumoniae DNA (PCR) Coronavirus OC43 (PCR) Coronavirus HKU1 (PCR) Coronavirus 229E (PCR) Coronavirus NL63 (PCR) Human Metapneumovir PCR Influenza A (RT-PCR) Influenza B (RT-PCR) M. pneumoniae (PCR) Parainfluenza 1 (PCR) Parainfluenza 2 (PCR) Parainfluenza 3 (PCR) Parainfluenza 4 (PCR) RSV (PCR) Entero/Rhino (PCR) SARS-CoV-2 RNA (RT-PCR) 12/24/21 12/24/21 07:28 11:05 POC Glucose 246 H 222 H Respiratory Panel Holder Adenovirus (Rapid PCR) B.pert (TEM-PCR) B.parapertussis DNA PCR C. pneumoniae DNA (PCR) Coronavirus OC43 (PCR) Coronavirus HKU1 (PCR) Coronavirus 229E (PCR) Coronavirus NL63 (PCR) Human Metapneumovir PCR Influenza A (RT-PCR) Influenza B (RT-PCR) M. pneumoniae (PCR) Parainfluenza 1 (PCR) Parainfluenza 2 (PCR) Parainfluenza 3 (PCR) Parainfluenza 4 (PCR) RSV (PCR) Entero/Rhino (PCR) SARS-CoV-2 RNA (RT-PCR) Microbiology Microbiology Results: Microbiology 12/21/21 18:21 Blood Culture - Preliminary Blood - Venous No growth after 48 hours. 12/21/21 18:21 Blood Culture - Preliminary Blood - Venous No growth after 48 hours. Assessment and Plan (1) Leukocytosis: Status: Acute (2) Acute respiratory failure with hypoxia: Status: Acute (3) COPD mixed type: Status: Acute (4) Leukocytosis: Status: Acute (5) Alkalosis: Status: Acute Plan 51-year-old lady with underlying morbid obesity, asthma/ COPD overlap syndrome, obesity hypoventilation, on 2 L of supplemental oxygen, nocturnal BiPAP hypogammaglobulinemia on IVIG, opioid dependence on methadone, diabetes melli tus, hypertension, admitted on 06/06/2021 with dyspnea and hypoxia .? Acute on chronic hypoxic hypercapnic respiratory failure secondary to COPD exacerbation. abg [id number]/102 sob-seems similar to yesterday ?? Leukocytosis trending down possibly related to on and off steroid use. given nebs/magnesium additional, added cxr Patient started on steroids, nebs, continue theophyllin, oxygen support to keep sats around 92 range Added pulmonary evaluation, if patient condition worsen may need to repeat ABG and need to consider ICU evaluation. alkalosis possible Secondary to ch respiratory failure improved with dimox 2 days back Follow BMP DM possible type 2:200's range( possible related to steriod use). Monitor fingersticks with sliding scale coverage. ?Opioid dependence continue methadone Hypertension: Fluctuating ?Continue home medications. Morbid obesity: Encouraged to cut down calories, weightloss . DVT PPX Lovenox ?inpatient need: ? acute on chronic hypoxic hypercapnic respiratory failure secondary to COPD exacerbation-needs IV steroid, oxygen support and nebs. Quality Stroke Does the patient have a stroke diagnosis?: No VTE Prior VTE?: No VTE Risk Level:: Medical - moderate - high VTE Device Contraindication: Treatment Not Indicated VTE Drug Contraindication: N/A - Med Ordered
--- NOTE | 2021-12-24 11:42 | PM.CNPUL ---
History of Present Illness History of Present Illness Consult date: 12/24/21 Chief complaint: COPD Exacerbation Narrative: ?This is an inpatient pulmonary consultation. The patient is a 51-year-old female with past medical history of COPD asthma overlap syndrome, chronic respiratory failure on 2.5 L baseline oxygen, and NIV complaints of shortness of breath.? Symptoms started the day prior.? Reports cough, sputum production, no fever chills, reports her granddaughter has been sick with a viral infection recently and she caught it from her.? Patient denies any orthopnea or PND, denies any lower extremity edema.? Denies any chest pain, no palpitations, headache or change in vision, no nausea or vomiting, no abdominal pain, no diarrhea constipation, no urinary symptoms.?In the ED patient dropped to 79% on room air, currently on 5 L satting 93%. Patient needed several hours of BiPAP in the ED but is now on nasal cannula, and will be admitted for further management. Today the patient is feeling little better although she is still short of breath. Moderate severity. She did use her BiPAP overnight. Her venous gas appears to be inaccurate based on the fact that her pCO2 is in the 30s. plan to repeat an ABG in the morning. Review of Systems Review of Systems: All other systems are reviewed and are negative Constitutional: Reports as per HPI and Reports no additional constitutional complaints Eyes: Reports as per HPI and Reports no additional eye complaints Reports system reviewed and no additional complaints, except as documented Cardiovascular: Reports as per HPI and Reports no additional cardiovascular complaints Respiratory: Reports as per HPI +sob, cough Gastrointestinal: Reports as per HPI and Reports no additional gastrointestinal complaints Genitourinary: Reports no additional female genitourinary complaints Musculoskeletal: Reports no additional musculoskeletal complaints Skin/Breast: Reports system reviewed and no additional complaints, except as docu Psychiatric: Reports no additional psychiatric complaints Endocrine: Reports no additional endocrine complaints Hematologic/Lymphatic: Reports no additional hematologic/lymphatic complaints Allergic/Immunologic: Reports no additional allergic/immunologic complaints Reports system reviewed and no additional complaints, except as documented and Reports Abnormal speech present [facility] Past Medical History Medical History (Updated 12/24/21 @ 22:03 by Allan Brito MD) Abdominal pain Abnormal chest x-ray Acute respiratory failure Aspiration into airway Asthma-COPD overlap syndrome Chronic respiratory failure Chronic respiratory failure Congestive heart failure COPD (chronic obstructive pulmonary disease) COPD exacerbation Diabetes mellitus Essential hypertension Hyperlipidemia, unspecified Hypertensive cardiovascular disease Hypogammaglobulinemia Leukocytosis Limb swelling Morbid obesity Opioid dependence Poor dentition Pulmonary congestion Pulmonary nodule Rib fractures Status asthmaticus with COPD (chronic obstructive pulmonary disease) Tobacco abuse Type 2 diabetes mellitus Type 2 diabetes mellitus with unspecified complications Vomiting Family History Family History Father Diabetes Other Asthma Surgical History Surgical History H/O tubal ligation Social History Social History Household Members: Children Household Members Other:: 3 Housing: Apartment Do you presently have visiting nurse or other home services: Yes Unable to assess alcohol history related to: Unknown Alcohol intake: former Patient Tobacco Use Status: Former Tobacco user Tobacco use type: Cigarette Cigarettes Per Day: 1 Years Smoked: 35 e-Cigarette/Vaping Use: Currently Using Second Hand Smoke Exposure: No Substance Use Type: Opiates Advance Directives Date on File: 06/12/21 service: No Current occupational status: disabled [employer] Allergies Allergy/AdvReac Type Severity Reaction Status Date / Time No Known Allergies Allergy Verified 12/14/21 10:35 [No Known Allergies*] Active Medications: Current Medications Acetaminophen (Acetaminophen 325 Mg Tablet) 650 mg PO Q6H PRN PRN Reason: Pain, Mild (Pain Scale 1-3) Albuterol/Ipratropium (Albuterol/Iprat 2.5/0.5mg 3 Ml Ampul.Neb) 3 ml INHALE Q4H PRN PRN Reason: Shortness of Breath/Wheezing Last Admin: 12/22/21 03:59 Dose: 3 ml Albuterol/Ipratropium (Albuterol/Iprat 2.5/0.5mg 3 Ml Ampul.Neb) 3 ml INHALE RQ4H WHILE AWAKE ANA Last Admin: 12/24/21 09:08 Dose: 3 ml Atorvastatin Calcium (Atorvastatin Calcium 20 Mg Tablet) 20 mg PO BEDTIME ANA Last Admin: 12/23/21 20:24 Dose: 20 mg Azithromycin (Azithromycin 500 Mg Tablet) 500 mg PO Q24H ANA Last Admin: 12/23/21 19:44 Dose: 500 mg Benzocaine (Throat Lozenge, Medicated Lozenge) 1 lozenge MUCOUS MEM Q2H PRN PRN Reason: Sore Throat Last Admin: 12/23/21 20:22 Dose: 1 lozenge Bupropion HCl (Bupropion Hcl 75 Mg Tablet) 150 mg PO BID [facility] Last Admin: 12/24/21 08:24 Dose: 150 mg Dextrose (Dextrose 50 % 25 Gm/50 Ml Syringe) 25 gm IVPUSH Q15M PRN; Protocol PRN Reason: per Hypoglycemia Standing Ord. Diltiazem HCl (Diltiazem Hcl Cd 180 Mg Cap.Er.24h) 360 mg PO DAILY [facility]; Protocol Last Admin: 12/24/21 08:25 Dose: 360 mg Docusate Sodium (Docusate Sodium 100 Mg Capsule) 100 mg PO DAILY PRN PRN Reason: Constipation Ergocalciferol (Ergocalciferol (Vitamin D2) 1,250 Mcg Capsule) 1,250 mcg PO Sa [facility] Last Admin: 12/22/21 06:01 Dose: 1,250 mcg Gabapentin (Gabapentin 300 Mg Capsule) 300 mg PO BID [facility] Last Admin: 12/24/21 08:25 Dose: 300 mg Glucose (Glucose Gel 15 Gm Gel..Gram.) 15 gm PO Q15M PRN; Protocol PRN Reason: per Hypoglycemia Standing Ord. Heparin Sodium (Porcine) (Heparin Sodium,Porcine 5,000 Unit/Ml Vial) 5,000 unit SUBCUT Q8H [facility] Last Admin: 12/24/21 06:39 Dose: 5,000 unit Hydralazine HCl (Hydralazine Hcl 25 Mg Tablet) 25 mg PO TID [facility]; Protocol Last Admin: 12/24/21 08:25 Dose: 25 mg Insulin Glargine (Insulin Glargine,Hum.Rec.Anlog 100 Unit/Ml 10 Ml Vial) 45 unit SUBCUT BEDTIME [facility] Last Admin: 12/23/21 20:25 Dose: 45 unit Insulin Human Lispro (Insulin Lispro 100 Unit/Ml 3 Ml Vial) 0 unit SUBCUT QIDACHS [facility]; Protocol Last Admin: 12/24/21 08:34 Dose: 4 unit Insulin Human Lispro (Insulin Lispro 100 Unit/Ml 3 Ml Vial) 4 unit SUBCUT TIDAC [facility] Last Admin: 12/24/21 08:33 Dose: 4 unit Lidocaine (Lidocaine 4 % Patch Adh..Patch) 1 patch TRANSDERMA DAILY [facility] Last Admin: 12/24/21 08:25 Dose: 1 patch Lisinopril (Lisinopril 40 Mg Tablet) 40 mg PO DAILY [facility]; Protocol Last Admin: 12/24/21 08:24 Dose: 40 mg Loratadine (Loratadine 10 Mg Tablet) 10 mg PO DAILY [facility] Last Admin: 12/24/21 08:24 Dose: 10 mg Methadone HCl (Methadone Hcl 20 Mg/2 Ml Oral.Conc) 50 mg PO DAILY [facility] Last Admin: 12/24/21 08:25 Dose: 50 mg Methylprednisolone Sodium Succinate (Methylprednisolone Sod Succ 40 Mg/Ml Vial) 40 mg IVPUSH Q12H [facility] Last Admin: 12/24/21 05:40 Dose: 40 mg Montelukast Sodium (Montelukast Sodium 10 Mg Tablet) 10 mg PO BEDTIME [facility] Last Admin: 12/23/21 20:24 Dose: 10 mg Non-Formulary Medication (Arformoterol [Brovana]) 2 ml INHALE Q12H [facility] Non-Formulary Medication (Diclofenac Potassium) 50 mg PO BID [facility] Non-Formulary Medication (Glecaprevir-Pibrentasvir [Mavyret]) 3 tab PO DAILY [facility] Non-Formulary Medication (Roflumilast [Daliresp]) 1 tab PO DAILY [facility] Non-Formulary Medication (Theophylline) 450 mg PO Q12H [facility] Omeprazole (Omeprazole 40 Mg Capsule.Dr) 40 mg PO DAILY@0630 [facility] Last Admin: 12/24/21 06:39 Dose: 40 mg Ondansetron HCl (Ondansetron Hcl 4 Mg/2 Ml Vial) 4 mg IVPUSH Q8H PRN PRN Reason: Nausea and Vomiting Pharmacy Consult (Consult Rx Perform Med Rec) 1 each MISCELLANE ONCE PRN PRN Reason: Consult order Sodium Chloride (0.9 % Sodium Chloride Flush 3 Ml Syringe) 3 ml IVFLUSH QSHIFT [facility] Last Admin: 12/24/21 08:26 Dose: 3 ml Home Medications Medication Instructions Recorded Confirmed Last Taken Type albuterol sulfate 90 mcg/actuation 2 puff inhalation Q4H PRN 12/30/19 12/21/21 02/21/21 History aerosol inhaler (ProAir HFA) Shortness Of Breath Or Wheezing loratadine 10 mg tablet (Claritin) 10 mg PO DAILY 12/30/19 12/21/21 02/21/21 History montelukast 10 mg tablet 10 mg PO BEDTIME 12/30/19 12/21/21 02/20/21 History diltiazem HCl 360 mg capsule,24 1 cap PO DAILY 11/16/20 12/21/21 02/21/21 History hr,extended release (Tiadylt ER) roflumilast 500 mcg tablet 1 tab PO DAILY 11/16/20 12/21/21 02/21/21 History (Daliresp) rosuvastatin 5 mg tablet 1 tab PO BEDTIME 11/16/20 12/21/21 02/20/21 History insulin lispro 100 unit/mL See Protocol subcut TIDAC 12/14/20 12/21/21 02/21/21 History subcutaneous solution (Humalog U-100 Insulin) metformin 500 mg tablet,extended 2 tab PO BID 05/18/21 12/21/21 Unknown History release 24 hr ergocalciferol (vitamin D2) 1,250 1,250 mcg PO QWEEK 06/06/21 12/21/21 Unknown History mcg (50,000 unit) capsule methadone 10 mg/mL oral concentrate 49 mg PO DAILY 06/06/21 12/22/21 07/30/21 History insulin glargine 100 unit/mL 45 unit subcut BEDTIME 06/07/21 12/21/21 Unknown History subcutaneous solution (Lantus U-100 Insulin) lisinopril 40 mg tablet 1 tab PO DAILY 07/30/21 12/21/21 Unknown History glecaprevir 100 mg-pibrentasvir 40 3 tab PO DAILY 11/02/21 12/21/21 Unknown History mg tablet (Mavyret) hydralazine 25 mg tablet 1 tab PO TID 11/02/21 12/21/21 Unknown History insulin lispro 100 unit/mL 4 unit subcut TIDAC 11/02/21 12/21/21 Unknown History subcutaneous solution omeprazole 40 mg capsule,delayed 40 mg PO DAILY@0630 11/02/21 12/21/21 Unknown History release lidocaine 5 % topical patch 1 patch topical DAILY 12/08/21 12/21/21 Unknown History (Lidoderm) Physical Exam Vital Signs: Vital Signs: Last Vital Signs Temp 98.7 F 12/24/21 11:07 Pulse 91 12/24/21 11:07 Resp 22 H 12/24/21 11:07 BP 146/92 H 12/24/21 11:07 Pulse Ox 90 L 12/24/21 11:07 O2 Del Method 12/24/21 11:07 O2 Flow Rate 3.0 12/23/21 18:51 FiO2 30 12/21/21 16:48 Oxygen Flow Rate 4 12/22/21 16:00 BMI result Body Mass Index 41.5 Const: Other: Appearance: Alert. Oriented X3. In moderate respiratory distress Eyes: Pupils equal, round and reactive to light. ENT: Pharynx normal. Neck: Normal inspection. Neck supple. No lymph nodes noted. No crepitus CVS: Normal heart rate and rhythm. Pulses normal. Normal S1 and S2 Respiratory: Respiratory distress, bilateral wheezing, decreased breath movements. Abdomen: Soft and nontender. No rigidity. No distention. Skin: Skin warm and dry. Normal skin color. Normal skin turgor. Extremities: No lower extremity edema. No Lacerations. No Rash Neuro: Oriented X 3. No motor deficit. No sensory deficit. Moving all extremities. No slurred speech. CN 2 through 12 grossly intact Psych: calm, cooperative, normal affect Results Laboratory Findings CBC and BMP: 12/22/21 05:55 12/23/21 07:45 ABG, PT/INR, D-dimer: PT/INR, D-dimer PT 10.1 SEC (10.0-13.1) 12/21/21 18:21 INR 0.9 (0.9-1.1) 12/21/21 18:21 Abnormal lab findings: Abnormal Labs 12/21/21 12/21/21 12/21/21 18:21 18:21 18:24 WBC 21.2 H RBC 3.84 L Hgb 11.4 L MCV 98.7 H MCHC 30.1 L MPV 8.9 L Immature Gran % (Auto) 1.2 H Neut % (Auto) 90.5 H Lymph % (Auto) 4.3 L Lymph # (Auto) 0.9 L Abs Immat Gran (auto) 0.26 H Absolute Neuts (auto) 19.2 H VBG pH VBG HCO3 Sodium 146 H Chloride Carbon Dioxide 40 H* D BUN 20 H POC Glucose 189 H Random Glucose 212 H Total Protein 6.1 L RSV (PCR) 12/21/21 12/22/21 12/22/21 21:00 05:55 05:55 WBC 17.1 H RBC 3.76 L Hgb 11.1 L MCV 99.5 H MCHC 29.7 L MPV Immature Gran % (Auto) 1.3 H Neut % (Auto) 93.9 H Lymph % (Auto) 1.9 L Lymph # (Auto) 0.3 L Abs Immat Gran (auto) 0.22 H Absolute Neuts (auto) 16.0 H VBG pH 7.58 H VBG HCO3 33 H Sodium Chloride 91 L Carbon Dioxide 41 H* BUN 17 H POC Glucose Random Glucose 295 H Total Protein RSV (PCR) 12/22/21 12/22/21 12/22/21 08:10 11:30 15:48 WBC RBC Hgb MCV MCHC MPV Immature Gran % (Auto) Neut % (Auto) Lymph % (Auto) Lymph # (Auto) Abs Immat Gran (auto) Absolute Neuts (auto) VBG pH VBG HCO3 Sodium Chloride Carbon Dioxide BUN POC Glucose 243 H 271 H 163 H Random Glucose Total Protein RSV (PCR) 12/22/21 12/23/21 12/23/21 19:42 07:36 07:45 WBC RBC Hgb MCV MCHC MPV Immature Gran % (Auto) Neut % (Auto) Lymph % (Auto) Lymph # (Auto) Abs Immat Gran (auto) Absolute Neuts (auto) VBG pH VBG HCO3 Sodium Chloride Carbon Dioxide 32 H BUN 23 H POC Glucose 263 H 293 H Random Glucose 278 H Total Protein RSV (PCR) 12/23/21 12/23/21 12/23/21 11:11 14:30 16:01 WBC RBC Hgb MCV MCHC MPV Immature Gran % (Auto) Neut % (Auto) Lymph % (Auto) Lymph # (Auto) Abs Immat Gran (auto) Absolute Neuts (auto) VBG pH VBG HCO3 Sodium Chloride Carbon Dioxide BUN POC Glucose 267 H 168 H Random Glucose Total Protein RSV (PCR) Detected A 12/23/21 12/24/21 12/24/21 19:32 01:32 05:25 WBC RBC Hgb MCV MCHC MPV Immature Gran % (Auto) Neut % (Auto) Lymph % (Auto) Lymph # (Auto) Abs Immat Gran (auto) Absolute Neuts (auto) VBG pH VBG HCO3 Sodium Chloride Carbon Dioxide BUN POC Glucose 250 H 274 H 259 H Random Glucose Total Protein RSV (PCR) 12/24/21 12/24/21 07:28 11:05 WBC RBC Hgb MCV MCHC MPV Immature Gran % (Auto) Neut % (Auto) Lymph % (Auto) Lymph # (Auto) Abs Immat Gran (auto) Absolute Neuts (auto) VBG pH VBG HCO3 Sodium Chloride Carbon Dioxide BUN POC Glucose 246 H 222 H Random Glucose Total Protein RSV (PCR) Microbiology: Microbiology 12/21/21 18:21 Blood - Venous Blood Culture - Preliminary No growth after 48 hours. 12/21/21 18:21 Blood - Venous Blood Culture - Preliminary No growth after 48 hours. Assessment and Plan (1) Acute on chronic respiratory failure with hypoxia and hypercapnia: Status: Acute (2) COPD exacerbation: Status: Acute (3) Viral syndrome: Status: Acute Plan continue solumedrol restart theophylline Continue nebs continue NIV during the day 2-4 hours and at night. Will look into sip and puff attachement for NIV continue oxygen continue azithromycin Tobacco cessation Guarded Procedures Date of Service Date of Service: 12/24/21
[2021-12-24 13:39] LABS: ABG Refer to POC result
[2021-12-24 16:27] LABS: Glucose, Whole Blood 234 mg/dL (60-115)
--- NOTE | 2021-12-24 17:22 | PC.RT ---
ABG drawn per MD order on 3 lpm. 7.37 / 82 / 102 / 48 / 98%. MD contacted and aware, RN made aware. Pt sleepy but easily arousable. David svn well via mask.
[2021-12-24] MEDS: Azithromycin 500 MG TABLET PO (19:36)
[2021-12-24 20:26] LABS: Glucose, Whole Blood 213 mg/dL (60-115)
[2021-12-24] MEDS: Atorvastatin Calcium 20 MG TABLET PO (20:34)
[2021-12-24] MEDS: Montelukast Sodium 10 MG TABLET PO (20:34)
[2021-12-24] MEDS: Insulin Glargine,Hum.rec.anlog 100 UNIT/ML 10 ML VIAL 45 UNIT SUBCUT (20:35)
[2021-12-25] VITALS (31 sets, daily range): BP systolic 90–163; BP diastolic 51–97; PULSE 78–110; RESP 14–24; TEMP 34.9–37.1; O2SAT 83–99
--- NOTE | 2021-12-25 04:45 | PC.NURSE ---
Dr Marielos Guillermo communicated with me at 21:30. If this pt becomes SOB or oxygen desaturation below 90%, tell night physician to check a ABG.
[2021-12-25] MEDS: Heparin Sodium,Porcine 5,000 UNIT/ML VIAL 5000 UNIT SUBCUT ×3 (06:19→22:45)
[2021-12-25] MEDS: Omeprazole 40 MG CAPSULE.DR PO (06:19)
[2021-12-25] MEDS: methylPREDNISolone Sod Succ 40 MG/ML VIAL IVPUSH ×2 (06:19→18:12)
[2021-12-25 07:18] LABS: Blood Urea Nitrogen 24 mg/dL (9-16); Calcium 9.3 mg/dL (8.4-10.2); Estimated Glomerular Filt Rate > 60; Glucose Random 205 mg/dL (60-115)
[2021-12-25 07:20] LABS: ABG HCO3 48 mmol/L (22-26); ABG pCO2 82 mmHg (32-45); ABG pH 7.37 (7.35-7.45); ABG pO2 102 mmHg (83-108)
[2021-12-25 07:41] LABS: Anion Gap 18 (12-20); Carbon Dioxide 42 mmol/L (22-29); Chloride 90 mmol/L (96-108); Potassium 4.7 mmol/L (3.3-5.1); Sodium 145 mmol/L (135-145)
[2021-12-25] MEDS: Albuterol/Iprat 2.5/0.5MG 3 ML AMPUL.NEB INHALE ×3 (08:00→20:07)
[2021-12-25 08:07] LABS: Glucose, Whole Blood 170 mg/dL (60-115)
[2021-12-25 08:09] LABS: ABG Base Excess 25.8 mmol/L; ABG HCO3 59 mmol/L (22-26); ABG pCO2 113 mmHg (32-45); ABG pH 7.32 (7.35-7.45); ABG pO2 81 mmHg (83-108)
--- NOTE | 2021-12-25 09:04 | P.PNPL_ITS ---
Subjective Subjective Date of Service: 12/25/21 Interval history: The patient was seen on exam this morning. Her ABG demonstrated acute on chronic hypercarbic respiratory failure. She is having some mild clonus. Mentation appears to be okay. She was placed on the AVAPs setting. She is tolerating it well although she is complaining of the elevated peak pressures. I did bring down the total volume from 09/08 2 550 mL. Seems to be tolerating a little better. Also went up on the PEEP slightly just to 6/5. Will repeat her chest x-ray. She is already on steroids. We did restart her theophylline. Objective Data Labs CBC & Chem 7: 12/22/21 05:55 12/25/21 05:35 Labs: Laboratory Results - last 24 hr 12/23/21 12/24/21 12/24/21 14:30 10:32 11:05 O2 Saturation 98.0 ABG pH at Pt Temp 7.37 ABG pCO2 at Pt Temp 82 H* ABG pO2 at Pt Temp 102 ABG HCO3 48 H ABG Base Excess (Actual) 18.0 Sodium Potassium Chloride Carbon Dioxide Anion Gap BUN Creatinine Estim Creat Clear Calc Estimated GFR POC Glucose 222 H Random Glucose Calcium Respiratory Panel Holder See Note Adenovirus (Rapid PCR) Not Detected B.pert (TEM-PCR) Not Detected B.parapertussis DNA PCR Not Detected C. pneumoniae DNA (PCR) Not Detected Coronavirus OC43 (PCR) Not Detected Coronavirus HKU1 (PCR) Not Detected Coronavirus 229E (PCR) Not Detected Coronavirus NL63 (PCR) Not Detected Human Metapneumovir PCR Not Detected Influenza A (RT-PCR) Not Detected Influenza B (RT-PCR) Not Detected M. pneumoniae (PCR) Not Detected Parainfluenza 1 (PCR) Not Detected Parainfluenza 2 (PCR) Not Detected Parainfluenza 3 (PCR) Not Detected Parainfluenza 4 (PCR) Not Detected RSV (PCR) Detected A Entero/Rhino (PCR) Not Detected SARS-CoV-2 RNA (RT-PCR) Not Detected 12/24/21 12/24/21 12/25/21 15:14 19:40 05:35 O2 Saturation ABG pH at Pt Temp ABG pCO2 at Pt Temp ABG pO2 at Pt Temp ABG HCO3 ABG Base Excess (Actual) Sodium 145 Potassium 4.7 Chloride 90 L Carbon Dioxide 42 H* D Anion Gap 18 BUN 24 H Creatinine 0.50 Estim Creat Clear Calc 144.0 Estimated GFR > 60 POC Glucose 234 H 213 H Random Glucose 205 H Calcium 9.3 Respiratory Panel Holder Adenovirus (Rapid PCR) B.pert (TEM-PCR) B.parapertussis DNA PCR C. pneumoniae DNA (PCR) Coronavirus OC43 (PCR) Coronavirus HKU1 (PCR) Coronavirus 229E (PCR) Coronavirus NL63 (PCR) Human Metapneumovir PCR Influenza A (RT-PCR) Influenza B (RT-PCR) M. pneumoniae (PCR) Parainfluenza 1 (PCR) Parainfluenza 2 (PCR) Parainfluenza 3 (PCR) Parainfluenza 4 (PCR) RSV (PCR) Entero/Rhino (PCR) SARS-CoV-2 RNA (RT-PCR) 12/25/21 12/25/21 07:19 08:02 O2 Saturation 94.0 ABG pH at Pt Temp 7.32 L ABG pCO2 at Pt Temp 113 H* ABG pO2 at Pt Temp 81 L ABG HCO3 59 H ABG Base Excess (Actual) 25.8 Sodium Potassium Chloride Carbon Dioxide Anion Gap BUN Creatinine Estim Creat Clear Calc Estimated GFR POC Glucose 170 H Random Glucose Calcium Respiratory Panel Holder Adenovirus (Rapid PCR) B.pert (TEM-PCR) B.parapertussis DNA PCR C. pneumoniae DNA (PCR) Coronavirus OC43 (PCR) Coronavirus HKU1 (PCR) Coronavirus 229E (PCR) Coronavirus NL63 (PCR) Human Metapneumovir PCR Influenza A (RT-PCR) Influenza B (RT-PCR) M. pneumoniae (PCR) Parainfluenza 1 (PCR) Parainfluenza 2 (PCR) Parainfluenza 3 (PCR) Parainfluenza 4 (PCR) RSV (PCR) Entero/Rhino (PCR) SARS-CoV-2 RNA (RT-PCR) Microbiology Microbiology Results: Microbiology 12/21/21 18:21 Blood - Venous Blood Culture - Preliminary No growth after 48 hours. 12/21/21 18:21 Blood - Venous Blood Culture - Preliminary No growth after 48 hours. Review of Systems Review of Systems All other systems are reviewed and are negative Constitutional: Reports as per HPI and Reports no additional constitutional complaints Eyes: Reports as per HPI and Reports no additional eye complaints Reports system reviewed and no additional complaints, except as documented Cardiovascular: Reports as per HPI and Reports no additional cardiovascular complaints Respiratory: Reports as per HPI +sob, cough Gastrointestinal: Reports as per HPI and Reports no additional gastrointestinal complaints Genitourinary: Reports no additional female genitourinary complaints Musculoskeletal: Reports +myoclonus Skin/Breast: Reports system reviewed and no additional complaints, except as docu Psychiatric: Reports no additional psychiatric complaints Endocrine: Reports no additional endocrine complaints Hematologic/Lymphatic: Reports no additional hematologic/lymphatic complaints Allergic/Immunologic: Reports no additional allergic/immunologic complaints Reports system reviewed and no additional complaints, except as documented and Reports Abnormal speech present Physical Exam Vital Signs: Vital Signs: Last Vital Signs Temp 96.8 F 12/25/21 07:33 Pulse 103 H 12/25/21 08:01 Resp 20 12/25/21 08:19 BP 138/83 12/25/21 07:33 Pulse Ox 97 12/25/21 07:33 O2 Del Method 12/25/21 07:33 O2 Flow Rate 30 12/25/21 07:33 FiO2 35 12/24/21 19:34 Oxygen Flow Rate 4 12/22/21 16:00 BMI result Body Mass Index 41.5 Const: Other: Appearance: Alert. Oriented X3. In moderate respiratory distress Eyes: Pupils equal, round and reactive to light. ENT: Pharynx normal. Neck: Normal inspection. Neck supple. No lymph nodes noted. No crepitus CVS: Normal heart rate and rhythm. Pulses normal. Normal S1 and S2 Respiratory: Respiratory distress, bilateral wheezing, decreased breath movemen ts. Abdomen: Soft and nontender. No rigidity. No distention. Skin: Skin warm and dry. Normal skin color. Normal skin turgor. Extremities: No lower extremity edema. No Lacerations. No Rash Neuro: Oriented X 3. No motor deficit. No sensory deficit. Moving all extremities. No slurred speech. CN 2 through 12 grossly intact Psych: calm, cooperative, normal affect Procedures Date of Service Date of Service: 12/25/21 Assessment and Plan Assessment and plan (1) Acute on chronic respiratory failure with hypoxia and hypercapnia: Status: Resolved (2) COPD exacerbation: Status: Resolved Plan AVAPs, repeat ABG early afternoon, hopefully she can be off for lunch cont solumedrol continue theophylline, will recheck levels nebs repeat CXR this am guarded Time Spent With Patient Time: Total time spent is greater than 50% in coordination of care (as documented) at patient's floor/unit and/or counseling patient: Progress Note: Quality Stroke Does the patient have a stroke diagnosis?: No
[2021-12-25] MEDS: Gabapentin 300 MG CAPSULE PO (09:48)
[2021-12-25] MEDS: hydrALAZINE HCl 25 MG TABLET PO (09:48)
[2021-12-25] MEDS: dilTIAZem HCL CD 180 MG CAP.ER.24H 360 MG PO (09:48)
[2021-12-25] MEDS: Theophylline Anhydrous ER 400 MG TAB.ER.24H PO (09:48)
[2021-12-25] MEDS: Loratadine 10 MG TABLET PO (09:49)
[2021-12-25] MEDS: lisinopriL 40 MG TABLET PO (09:49)
[2021-12-25] MEDS: Insulin Lispro 100 UNIT/ML 3 ML VIAL SUBCUT ×3 (09:49→23:50)
[2021-12-25] MEDS: buPROPion HCL 75 MG TABLET 150 MG PO (09:49)
[2021-12-25] MEDS: Lidocaine 4 % Patch ADH..PATCH 1 PATCH TRANSDERMA (09:49)
[2021-12-25] MEDS: 0.9 % Sodium Chloride Flush 3 ML SYRINGE IVFLUSH ×3 (09:50→23:10)
[2021-12-25] MEDS: methADONE HCl 20 MG/2 ML ORAL.CONC 50 MG PO (09:51)
[2021-12-25 09:55] LABS: ABG Refer to POC result
[2021-12-25 10:30] LABS: ABG HCO3 58 mmol/L (22-26); ABG pCO2 109 mmHg (32-45); ABG pH 7.33 (7.35-7.45); ABG pO2 51 mmHg (83-108)
--- NOTE | 2021-12-25 11:07 | P.PNIM_ITS ---
Subjective Subjective Date of Service: 12/25/21 Interval History: short of breath on BiPAP; placed on AVAPS pCO2 113; repeat pCO2 109 despite 2hr on AVAPS Review of Systems Review of Systems: Yes Unobtainable due to mental condition Physical Exam Vital Signs: Vital Signs: Last Vital Signs Temp 96.8 F 12/25/21 07:33 Pulse 103 H 12/25/21 08:01 Resp 20 12/25/21 08:19 BP 138/83 12/25/21 07:33 Pulse Ox 97 12/25/21 07:33 O2 Del Method 12/25/21 07:33 O2 Flow Rate 30 12/25/21 07:33 FiO2 35 12/24/21 19:34 Oxygen Flow Rate 4 12/22/21 16:00 BMI result Body Mass Index 41.5 Gen: in severe respiratory distress HEENT: sclera anicteric, moist mucus membranes Neck: supple Lungs: diminished throughout Heart: tachycardic Abd: soft, non-tender, non-distended, morbidly obese Ext: no edema Skin: warm/well-perfused Neuro: alert and oriented x3, asterixis present Psych: appropriate affect Objective Data Active Medications Acetaminophen (Acetaminophen 325 Mg Tablet) 650 mg PO Q6H PRN PRN Reason: Pain, Mild (Pain Scale 1-3) Albuterol/Ipratropium (Albuterol/Iprat 2.5/0.5mg 3 Ml Ampul.Neb) 3 ml INHALE Q 4H PRN PRN Reason: Shortness of Breath/Wheezing Last Admin: 12/22/21 03:59 Dose: 3 ml Documented By: MARYSOL Albuterol/Ipratropium (Albuterol/Iprat 2.5/0.5mg 3 Ml Ampul.Neb) 3 ml INHALE RQ4H WHILE AWAKE [facility] Last Admin: 12/25/21 08:00 Dose: 3 ml Documented By: SANJAY Atorvastatin Calcium (Atorvastatin Calcium 20 Mg Tablet) 20 mg PO BEDTIME ANA Last Admin: 12/24/21 20:34 Dose: 20 mg Documented By: CRYS Azithromycin (Azithromycin 500 Mg Tablet) 500 mg PO Q24H [facility] Last Admin: 12/24/21 19:36 Dose: 500 mg Documented By: CRYS Benzocaine (Throat Lozenge, Medicated Lozenge) 1 lozenge MUCOUS MEM Q2H PRN PRN Reason: Sore Throat Last Admin: 12/23/21 20:22 Dose: 1 lozenge Documented By: CRYS Bupropion HCl (Bupropion Hcl 75 Mg Tablet) 150 mg PO BID [facility] Last Admin: 12/25/21 09:49 Dose: 150 mg Documented By: MILIND Dextrose (Dextrose 50 % 25 Gm/50 Ml Syringe) 25 gm IVPUSH Q15M PRN; Protocol PRN Reason: per Hypoglycemia Standing Ord. Diltiazem HCl (Diltiazem Hcl Cd 180 Mg Cap.Er.24h) 360 mg PO DAILY [facility]; Protocol Last Admin: 12/25/21 09:48 Dose: 360 mg Documented By: MILIND Docusate Sodium (Docusate Sodium 100 Mg Capsule) 100 mg PO DAILY PRN PRN Reason: Constipation Ergocalciferol (Ergocalciferol (Vitamin D2) 1,250 Mcg Capsule) 1,250 mcg PO Sa [facility] Last Admin: 12/22/21 06:01 Dose: 1,250 mcg Documented By: JOSE Gabapentin (Gabapentin 300 Mg Capsule) 300 mg PO BID [facility] Last Admin: 12/25/21 09:48 Dose: 300 mg Documented By: MILIND Glucose (Glucose Gel 15 Gm Gel..Gram.) 15 gm PO Q15M PRN; Protocol PRN Reason: per Hypoglycemia Standing Ord. Heparin Sodium (Porcine) (Heparin Sodium,Porcine 5,000 Unit/Ml Vial) 5,000 unit SUBCUT Q8H [facility] Last Admin: 12/25/21 06:19 Dose: 5,000 unit Documented By: CRYS Hydralazine HCl (Hydralazine Hcl 25 Mg Tablet) 25 mg PO TID [facility]; Protocol Last Admin: 12/25/21 09:48 Dose: 25 mg Documented By: MILIND Insulin Glargine (Insulin Glargine,Hum.Rec.Anlog 100 Unit/Ml 10 Ml Vial) 45 unit SUBCUT BEDTIME [facility] Last Admin: 12/24/21 20:35 Dose: 45 unit Documented By: CRYS Insulin Human Lispro (Insulin Lispro 100 Unit/Ml 3 Ml Vial) 0 unit SUBCUT QIDACHS [facility]; Protocol Last Admin: 12/25/21 09:49 Dose: 2 unit Documented By: MILIND Insulin Human Lispro (Insulin Lispro 100 Unit/Ml 3 Ml Vial) 4 unit SUBCUT TIDAC [facility] Last Admin: 12/25/21 09:49 Dose: Not Given Documented By: MILIND Non-Admin Reason: Physician Held Med Lidocaine (Lidocaine 4 % Patch Adh..Patch) 1 patch TRANSDERMA DAILY [facility] Last Admin: 12/25/21 09:49 Dose: 1 patch Documented By: MILIND Lisinopril (Lisinopril 40 Mg Tablet) 40 mg PO DAILY [facility]; Protocol Last Admin: 12/25/21 09:49 Dose: 40 mg Documented By: MILIND Loratadine (Loratadine 10 Mg Tablet) 10 mg PO DAILY [facility] Last Admin: 12/25/21 09:49 Dose: 10 mg Documented By: MILIND Methadone HCl (Methadone Hcl 20 Mg/2 Ml Oral.Conc) 50 mg PO DAILY [facility] Last Admin: 12/25/21 09:51 Dose: 50 mg Documented By: MILIND Methylprednisolone Sodium Succinate (Methylprednisolone Sod Succ 40 Mg/Ml Vial) 40 mg IVPUSH Q12H [facility] Last Admin: 12/25/21 06:19 Dose: 40 mg Documented By: CRYS Montelukast Sodium (Montelukast Sodium 10 Mg Tablet) 10 mg PO BEDTIME [facility] Last Admin: 12/24/21 20:34 Dose: 10 mg Documented By: CRYS Non-Formulary Medication (Arformoterol [Brovana]) 2 ml INHALE Q12H [facility] Non-Formulary Medication (Diclofenac Potassium) 50 mg PO BID [facility] Non-Formulary Medication (Glecaprevir-Pibrentasvir [Mavyret]) 3 tab PO DAILY [facility] Non-Formulary Medication (Roflumilast [Daliresp]) 1 tab PO DAILY [facility] Non-Formulary Medication (Theophylline) 450 mg PO Q12H [facility] Omeprazole (Omeprazole 40 Mg Capsule.Dr) 40 mg PO DAILY@0630 [facility] Last Admin: 12/25/21 06:19 Dose: 40 mg Documented By: CRYS Ondansetron HCl (Ondansetron Hcl 4 Mg/2 Ml Vial) 4 mg IVPUSH Q8H PRN PRN Reason: Nausea and Vomiting Pharmacy Consult (Consult Rx Perform Med Rec) 1 each MISCELLANE ONCE PRN PRN Reason: Consult order Sodium Chloride (0.9 % Sodium Chloride Flush 3 Ml Syringe) 3 ml IVFLUSH QSHIFT [facility] Last Admin: 12/25/21 09:50 Dose: 3 ml Documented By: MILIND Theophylline (Theophylline Anhydrous Er 400 Mg Tab.Er.24h) 400 mg PO BID [facility] Last Admin: 12/25/21 09:48 Dose: 400 mg Documented By: MILIND Labs CBC & Chem 7: 12/22/21 05:55 12/25/21 05:35 Labs: Laboratory Results - last 24 hr 12/24/21 12/24/21 12/24/21 10:32 11:05 15:14 O2 Saturation 98.0 ABG pH at Pt Temp 7.37 ABG pCO2 at Pt Temp 82 H* ABG pO2 at Pt Temp 102 ABG HCO3 48 H ABG Base Excess (Actual) 18.0 Anion Gap Estim Creat Clear Calc Estimated GFR POC Glucose 222 H 234 H Random Glucose Calcium 12/24/21 12/25/21 12/25/21 19:40 05:35 07:19 O2 Saturation ABG pH at Pt Temp ABG pCO2 at Pt Temp ABG pO2 at Pt Temp ABG HCO3 ABG Base Excess (Actual) Anion Gap 18 Estim Creat Clear Calc 144.0 Estimated GFR > 60 POC Glucose 213 H 170 H Random Glucose 205 H Calcium 9.3 12/25/21 12/25/21 08:02 10:24 O2 Saturation 94.0 77.0 ABG pH at Pt Temp 7.32 L 7.33 L ABG pCO2 at Pt Temp 113 H* 109 H* ABG pO2 at Pt Temp 81 L 51 L ABG HCO3 59 H 58 H ABG Base Excess (Actual) 25.8 25.0 Anion Gap Estim Creat Clear Calc Estimated GFR POC Glucose Random Glucose Calcium Assessment and Plan (1) Leukocytosis: Status: Acute (2) Acute respiratory failure with hypoxia: Status: Acute (3) COPD mixed type: Status: Acute (4) Leukocytosis: Status: Acute (5) Alkalosis: Status: Acute Plan d#5 51yo F with morbid obesity, asthma/COPD overlap, obesity hypoventilation, chronic hypoxic/hypercapneic resp failure on 2L of O2 + nocturnal BiPAP, h ypogammaglobulinemia on IVIg, opioid dependence on methadone, DM2, HTN admitted for respiratory failure due to COPD exacerbation with RSV infection # acute/chronic hypoxic/hypercapneic respiratory failure - transfer to ICU, high likelihood of needing intubation/invasive ventilation - continue steroids, nebs, theophylline, azithromycin, loratadine, roflumilast - Pulmonary following # RSV infection - droplet precautions # HTN - diltiazem, lisinopril, hydralazine # DM2 - correction-dose lispro # chronic HCV - continue Mavyret # opioid dependence - methadone # morbid obesity - weight loss program # VTE ppx: LMWH In my clinical judgment, the patient requires continued hospitalization for the following reasons: ICU transfer Quality Stroke Does the patient have a stroke diagnosis?: No VTE Prior VTE?: No VTE Risk Level:: Medical - moderate - high VTE Device Contraindication: Treatment Not Indicated VTE Drug Contraindication: N/A - Med Ordered
[2021-12-25 11:28] LABS: ABG Refer to POC result
[2021-12-25] MEDS: Midazolam HCl/PF 2 MG/2 ML VIAL IVPUSH ×2 (11:48→22:27)
[2021-12-25] MEDS: propofoL 200 MG/20 ML VIAL 50 MG IVPUSH (12:17)
[2021-12-25] MEDS: Rocuronium Bromide 50 MG/5 ML VIAL IVPUSH (12:19)
[2021-12-25] MEDS: propofoL 1,000 MG/100 ML VIAL 17.95 MG IVCONT (12:24)
[2021-12-25] MEDS: acetaZOLAMIDE sodium 500 MG VIAL 250 MG IVPUSH (13:23)
--- NOTE | 2021-12-25 15:00 | MHC.CM.PN ---
Pt tranferred to ICU for ventilatory support d/t increased respiratory distress and work of breathing. Pt known from past visits and review of EMR. Original d/c plan for a return to home with existing [employer] and VNA support however, pt may require more supports, ie STR. No attempts to vent wean today. CM to follow.
--- NOTE | 2021-12-25 15:50 | W.PM.CCCN ---
History of Present Illness Data of Consult Service Date: 12/25/21 Requesting physician: Paige Steele / [facility] Primary Care Provider: Kelli Benavides MD [facility] Reason for consult: Acute respiratory extremis with acute hypoxic/hypercarbic resp. Failure 51-year-old obese female very well known to this institution with multiple episodes of acute on chronic hypoxic and hypercarbic respiratory failure once again in clinical status asthmaticus with severe auto PEEP with elevated white count questionable diffuse interstitial infiltrates by chest x-ray only beginning to develop altered mental status and also has clinical as asterixis and failing on on BiPAP on the AVAPS mode Background history of type 2 diabetes mellitus as well In this instance she was respiratory syncytial virus positive as probable etiology for clinical tracheobronchitis Brought down to the ICU and because of complete lack of IV access we placed a central line via the left internal jugular vein without complication seen to end at the right atrial junction and proceeded with intubation without complication with a 7.5 endotracheal tube and the patient was placed on aggressive short-acting bronchodilator therapy every 2 hours on the same dose of of steroid maintenance is was not increased because of the RSV infection with the vent settings allowing her much more prolonged expiratory time because of continued auto PEEP Review of Systems Review of Systems: Yes Unobtainable due to mental status PMFSH Past Medical History Medical History (Updated 12/26/21 @ 14:00 by Jens Pendleton MD) Abdominal pain Abnormal chest x-ray Acute respiratory failure Aspiration into airway Asthma-COPD overlap syndrome Chronic respiratory failure Chronic respiratory failure Congestive heart failure COPD (chronic obstructive pulmonary disease) COPD exacerbation Diabetes mellitus Essential hypertension Hyperlipidemia, unspecified Hypertensive cardiovascular disease Hypogammaglobulinemia Leukocytosis Limb swelling Morbid obesity Opioid dependence Poor dentition Pulmonary congestion Pulmonary nodule Rib fractures Status asthmaticus with COPD (chronic obstructive pulmonary disease) Tobacco abuse Type 2 diabetes mellitus Type 2 diabetes mellitus with unspecified complications Vomiting Family History Family History Father Diabetes Other Asthma Surgical History Surgical History H/O tubal ligation Social History Social History Household Members: Children Household Members Other:: 3 Housing: Apartment Do you presently have visiting nurse or other home services: Yes Unable to assess alcohol history related to: Unknown Alcohol intake: former Patient Tobacco Use Status: Former Tobacco user Tobacco use type: Cigarette Cigarettes Per Day: 1 Years Smoked: 35 e-Cigarette/Vaping Use: Currently Using Second Hand Smoke Exposure: No Substance Use Type: Opiates Advance Directives Date on File: 06/12/21 service: No Current occupational status: disabled Meds Allergies Allergy/AdvReac Type Severity Reaction Status Date / Time No Known Allergies Allergy Verified 12/14/21 10:35 [No Known Allergies*] Active Medications: Current Medications Albuterol/Ipratropium (Albuterol/Iprat 2.5/0.5mg 3 Ml Ampul.Neb) 3 ml INHALE RQ4H [facility] Dextrose (Dextrose 50 % 25 Gm/50 Ml Syringe) 25 gm IVPUSH Q15M PRN; Protocol PRN Reason: per Hypoglycemia Standing Ord. Dextrose (Dextrose 50 % 25 Gm/50 Ml Syringe) 25 gm IVPUSH Q15M PRN; Protocol PRN Reason: per Hypoglycemia Standing Ord. Docusate Sodium (Docusate Sodium 100 Mg Capsule) 100 mg PO DAILY PRN PRN Reason: Constipation Glucose (Glucose Gel 15 Gm Gel..Gram.) 15 gm PO Q15M PRN; Protocol PRN Reason: per Hypoglycemia Standing Ord. Glucose (Glucose Gel 15 Gm Gel..Gram.) 15 gm PO Q15M PRN; Protocol PRN Reason: per Hypoglycemia Standing Ord. Heparin Sodium (Porcine) (Heparin Sodium,Porcine 5,000 Unit/Ml Vial) 5,000 unit SUBCUT Q8H [facility] Last Admin: 12/25/21 13:23 Dose: 5,000 unit Insulin Human Lispro (Insulin Lispro 100 Unit/Ml 3 Ml Vial) 0 unit SUBCUT Q6H [facility]; Protocol Stop: 12/26/21 15:47 Levalbuterol HCl (Levalbuterol Hcl 1.25 Mg/0.5 Ml Vial.Neb) 1.25 mg INHALE Q4H [facility] Methadone HCl (Methadone Hcl 20 Mg/2 Ml Oral.Conc) 50 mg PO DAILY [facility] Last Admin: 12/25/21 09:51 Dose: 50 mg Methylprednisolone Sodium Succinate (Methylprednisolone Sod Succ 40 Mg/Ml Vial) 40 mg IVPUSH Q12H [facility] Last Admin: 12/25/21 06:19 Dose: 40 mg Montelukast Sodium (Montelukast Sodium 10 Mg Tablet) 10 mg PO BEDTIME [facility] Last Admin: 12/24/21 20:34 Dose: 10 mg Non-Formulary Medication (Glecaprevir-Pibrentasvir [Mavyret]) 3 tab PO DAILY [facility] Pharmacy Consult (Consult Rx Perform Med Rec) 1 each MISCELLANE ONCE PRN PRN Reason: Consult order Sodium Chloride (0.9 % Sodium Chloride Flush 3 Ml Syringe) 3 ml IVFLUSH QSHIFT [facility] Last Admin: 12/25/21 15:04 Dose: 3 ml Home Medications Medication Instructions Recorded Confirmed Last Taken Type albuterol sulfate 90 mcg/actuation 2 puff inhalation Q4H PRN 12/30/19 12/21/21 02/21/21 History aerosol inhaler (ProAir HFA) Shortness Of Breath Or Wheezing loratadine 10 mg tablet (Claritin) 10 mg PO DAILY 12/30/19 12/21/21 02/21/21 History montelukast 10 mg tablet 10 mg PO BEDTIME 12/30/19 12/21/21 02/20/21 History diltiazem HCl 360 mg capsule,24 1 cap PO DAILY 11/16/20 12/21/21 02/21/21 History hr,extended release (Tiadylt ER) roflumilast 500 mcg tablet 1 tab PO DAILY 11/16/20 12/21/21 02/21/21 History (Daliresp) rosuvastatin 5 mg tablet 1 tab PO BEDTIME 11/16/20 12/21/21 02/20/21 History insulin lispro 100 unit/mL See Protocol subcut TIDAC 12/14/20 12/21/21 02/21/21 History subcutaneous solution (Humalog U-100 Insulin) metformin 500 mg tablet,extended 2 tab PO BID 05/18/21 12/21/21 Unknown History release 24 hr ergocalciferol (vitamin D2) 1,250 1,250 mcg PO QWEEK 06/06/21 12/21/21 Unknown History mcg (50,000 unit) capsule methadone 10 mg/mL oral concentrate 49 mg PO DAILY 06/06/21 12/22/21 07/30/21 History insulin glargine 100 unit/mL 45 unit subcut BEDTIME 06/07/21 12/21/21 Unknown History subcutaneous solution (Lantus U-100 Insulin) lisinopril 40 mg tablet 1 tab PO DAILY 07/30/21 12/21/21 Unknown History glecaprevir 100 mg-pibrentasvir 40 3 tab PO DAILY 11/02/21 12/21/21 Unknown History mg tablet (Mavyret) hydralazine 25 mg tablet 1 tab PO TID 11/02/21 12/21/21 Unknown History insulin lispro 100 unit/mL 4 unit subcut TIDAC 11/02/21 12/21/21 Unknown History subcutaneous solution omeprazole 40 mg capsule,delayed 40 mg PO DAILY@0630 11/02/21 12/21/21 Unknown History release lidocaine 5 % topical patch 1 patch topical DAILY 12/08/21 12/21/21 Unknown History (Lidoderm) Physical Exam Vital Signs: Vital Signs: Last Vital Signs Temp 98.7 F 12/25/21 12:00 Pulse 84 12/25/21 14:54 Resp 20 12/25/21 14:54 BP 124/77 12/25/21 14:54 Pulse Ox 95 12/25/21 14:54 O2 Del Method 12/25/21 14:54 O2 Flow Rate 30 12/25/21 07:33 FiO2 35 12/25/21 15:28 Oxygen Flow Rate 4 12/22/21 16:00 BMI result Body Mass Index 41.5 Small Levophed support only since propofol was introduced Neurologically intact with current resolution of asterixis Abdomen obese but nontender no again a megaly Bedside echo with normal LV function Chest without breath sounds bilaterally due to air trapping Skin intact no peripheral edema Results Labs CBC & Chem 7: 12/26/21 05:10 12/26/21 05:10 Labs: BMP 12/25/21 05:35 Sodium 145 Potassium 4.7 Chloride 90 L Carbon Dioxide 42 H* D BUN 24 H Creatinine 0.50 Calcium 9.3 Microbiology Microbiology Results: Microbiology 12/21/21 18:21 Blood - Venous Blood Culture - Preliminary No growth after 48 hours. 12/21/21 18:21 Blood - Venous Blood Culture - Preliminary No growth after 48 hours. Assessment and Plan (1) Viral syndrome: Status: Acute (2) COPD exacerbation: Status: Acute (3) Status asthmaticus with COPD (chronic obstructive pulmonary disease): Status: Acute (4) Asthmatic bronchitis with acute exacerbation: Status: Acute (5) Leukocytosis: Status: Acute (6) Acute respiratory failure with hypoxia: Status: Acute (7) COPD mixed type: Status: Acute (8) Acute on chronic respiratory failure with hypoxia and hypercapnia: Status: Acute (9) Pleuritic chest pain: Status: Acute (10) Acute exacerbation of chronic obstructive airways disease: Status: Acute (11) Close exposure to COVID-19 virus: Status: Acute Plan So the plan was to proceed with intubation and placement of central line and then ventilator maintenance to get us through the acute bronchitic and episode and the status asthmaticus
--- NOTE | 2021-12-25 15:51 | W.PM.CCHP ---
Procedures Date of Service Date of Service: 12/25/21 Central Line Placement Left IJ: Central Line Comments: Due to complete lack of venous access and after sterile preparation and draping and under ultrasound guidance replaced a triple-lumen central venous pressure catheter via the left internal jugular vein and ending at the entry of the right atrium and by chest x-ray no evidence of pneumothorax or any other complication Gained entry to left internal jugular vein passing retrograde with Seldinger technique J tipped guidewire over which triple-lumen catheter 20 cm length was placed and sewn in place and sterilely dressed and measurement of central venous pressure was 10 mmHg Consent for Procedure: Emergent-no informed consent obtained Time out performed: Yes Sterile Technique Used: Yes Patient placed on monitor/pulse ox: Yes prep: mask, gown and gloves Central line prep: Chlorhexidine scrub Ultrasound used for placement: Yes Central line lumen inserted: triple Post procedure: sutured in place, good blood return, all ports aspirated, flushed, capped and sterile dressing applied Post procedure x-ray: tip of catheter in good position and no pneumothorax seen Patient tolerated procedure: well and no complications Complications: none
--- NOTE | 2021-12-25 15:51 | W.PM.CCHP ---
Procedures Date of Service Date of Service: 12/25/21 Intubation Intubation Comments: Patient in respiratory extremis known severe asthmatic presenting with acute on chronic hypercarbic and hypoxic respiratory failure from our SV pneumonia with clear-cut severe air trapping so utilizing glide scope guidance with excellent visualization of the vocal cords and propofol sedation and rocuronium and utilizing a 7.5 ET tube intubation was performed easily without complication confirming placement by a good end-tidal CO2 response as well as good bilateral breath sounds as well as chest x-ray confirmation and also confirming no complication Consent for Procedure: Emergent-no informed consent obtained Time out performed: Yes Sedative: propofol Paralytic: rocuronium Laryngoscope: fiber optic video scope ET tube size: 7.5 ET tube uncuffed: No Tube secured depth (cm): 23 Tube placement confirmation: visualized tube passing through cords, equal breath sounds bilaterally, no breath sounds over epigastrium and confirmation by capnometry Patient tolerated procedure: well and no complications Intubation complications: none
[2021-12-25] MEDS: propofoL 1,000 MG/100 ML VIAL 29.91 MG IVCONT ×3 (16:01→22:07)
[2021-12-25 18:03] LABS: Glucose, Whole Blood 230 mg/dL (60-115)
[2021-12-25] MEDS: Montelukast Sodium 10 MG TABLET PO (20:18)
--- NOTE | 2021-12-25 22:28 | PC.NURSE ---
pt anxious and restless, [employer] and Respiratory made aware, 2mg Versed given and suctioned x2
[2021-12-25] MEDS: Midazolam HCl/NS 50 MG/50 ML PLAST..BAG IVCONT (23:06)
--- NOTE | 2021-12-25 23:09 | PC.NURSE ---
pt still restless and more awake on sedation, provider made aware. Versed drip started at 2mg/2ml/hr
[2021-12-25 23:42] LABS: Glucose, Whole Blood 176 mg/dL (60-115)
[2021-12-26] VITALS (38 sets, daily range): BP systolic 90–141; BP diastolic 54–88; PULSE 88–111; RESP 18–22; TEMP 34.4–37.1; O2SAT 88–96; BMI 35.2
[2021-12-26] MEDS: Albuterol/Iprat 2.5/0.5MG 3 ML AMPUL.NEB INHALE ×7 (00:20→23:54)
[2021-12-26] MEDS: propofoL 1,000 MG/100 ML VIAL 29.91 MG IVCONT ×8 (01:11→22:06)
--- NOTE | 2021-12-26 03:35 | PC.NURSE ---
pt changed and repositioned, skin intact. pt lightly sedated and less anxious than prior hours
[2021-12-26 05:21] LABS: VBG Base Excess 16.1 mmol/L; VBG HCO3 42 mmol/L (22-26); VBG pCO2 59 mmHg; VBG pH 7.46 (7.32-7.43); VBG pO2 41 mmHg
[2021-12-26 05:26] LABS: Venous Blood Gas Refer to POC result
[2021-12-26 05:33] LABS: Basophils Percent Auto 0.1 % (0-2); Hematocrit 37.3 % (37.0-47.0); Hemoglobin 11.3 g/dl (12.0-16.0); Imm Gran Pct Auto 0.9 % (0.0-0.4); Lymphocytes Absolute Auto 0.3 X10*3/uL (1.2-4.9); Lymphocytes Percent Auto 2.7 % (20-40); MANUAL DIFF FLAG SCAN; Mean Corpuscular HGB Conc 30.3 g/dl (31.0-35.0); Mean Corpuscular Volume 95.6 fL (80.0-98.0); Mean Platelet Volume 9.2 fL (9.4-12.3); Monocytes Absolute Auto 0.6 X10*3/uL (0.1-1.2); NRBC Pct Auto 0.2 /100WBC (0.0-0.2); Neutrophils Absolute Auto 9.5 x10*3/uL (2.0-8.3); Neutrophils Percent Auto 90.3 % (45-73); Platelet Count 231 X10*3/uL (160-400); Red Cell Distribution Width 13.5 % (11.0-16.0); SCAN SMEAR FLAG 1; White Blood Count 10.6 X10*3/uL (4.8-10.8)
[2021-12-26 05:39] LABS: Glucose, Whole Blood 211 mg/dL (60-115)
[2021-12-26 05:46] LABS: Anion Gap 13 (12-20); Blood Urea Nitrogen 22 mg/dL (9-16); Carbon Dioxide 37 mmol/L (22-29); Chloride 94 mmol/L (96-108); Creatinine Clr Calc Pharmacy 128.6; Estimated Glomerular Filt Rate > 60; Glucose Random 242 mg/dL (60-115); Magnesium 1.9 mg/dL (1.6-2.6); Phosphorus 3.3 mg/dL (2.7-4.5); Potassium 4.2 mmol/L (3.3-5.1); Sodium 140 mmol/L (135-145)
[2021-12-26] MEDS: Insulin Lispro 100 UNIT/ML 3 ML VIAL SUBCUT ×4 (05:46→23:56)
[2021-12-26] MEDS: methylPREDNISolone Sod Succ 40 MG/ML VIAL IVPUSH ×2 (05:46→17:03)
[2021-12-26 05:56] LABS: SLIDE REVIEW VERIFIED
[2021-12-26] MEDS: Heparin Sodium,Porcine 5,000 UNIT/ML VIAL 5000 UNIT SUBCUT ×3 (06:24→22:07)
[2021-12-26] MEDS: methADONE HCl 20 MG/2 ML ORAL.CONC 50 MG PO (08:32)
[2021-12-26] MEDS: 0.9 % Sodium Chloride Flush 3 ML SYRINGE IVFLUSH ×3 (08:37→23:55)
--- NOTE | 2021-12-26 11:07 | MHC.CLN ---
PT IS INTUBATED AND SEDATED GLUCERNA TF CURRENTLY RUNNING AT 20ML/HR WITH 120ML FREE WATER FLUSHES Q 6 HR PROVIDES 480KCALS (1269KCLAS WITH SEDATION), 20G PROTEIN, 409ML FREE WATER FROM FORMULA RECOMMEND ADDING 30ML PROSOURCE TID TO PROVIDE AN ADDITIONAL 180KCALS, 45G PROTEIN (65G PROTEIN TOTAL; 1.08G/KG) RECOMMEND INCREASING FLUSHES TO 240ML Q 6 HOURS TO PROVIDE 1369ML TOTAL WATER FROM FORMULA AND FLUSHES MONITOR TOLERANCE, RESIDUALS AND LYTES SEE FULL CLINICAL NUTRITION ASSESSMENT
[2021-12-26 12:49] LABS: Glucose, Whole Blood 306 mg/dL (60-115)
[2021-12-26] MEDS: Midazolam HCl/NS 50 MG/50 ML PLAST..BAG IVCONT (13:00)
--- NOTE | 2021-12-26 14:04 | PM.CCPN ---
Subjective Subjective Date of Service: 12/26/21 Interval History: 51-year-old obese type 2 diabetic hypertensive with severe advanced COPD presents with acute on chronic hypercarbic and hypoxic respiratory failure a call because she is failing on BiPAP with progressive alteration of mental status and asterixis climbing pCO2 in clinical status asthmaticus with severe air trapping requiring intubation which was performed without complication including placement of central line for lack of any venous access due to prior history of drug abuse she is in addition on methadone maintenance for that diagnosis currently remains sedated and intubated comfortably with the ventilator management with low volume prolonged expiratory time and doing comfortably well with a RSV tracheobronchitis Critical Care Time (minutes): 45 Physical Exam Vital Signs: Vital Signs: Last Vital Signs Temp 98.7 F 12/26/21 12:00 Pulse 111 H 12/26/21 13:00 Resp 18 12/26/21 13:00 BP 117/69 12/26/21 13:00 Pulse Ox 92 12/26/21 13:00 O2 Del Method 12/26/21 13:00 O2 Flow Rate 30 12/25/21 07:33 FiO2 30 12/26/21 13:00 Oxygen Flow Rate 4 12/22/21 16:00 BMI result Body Mass Index 35.2 Sedated and intubated but nonfocal neurologically Bedside echo shows concentric left ventricular hypertrophy with hyperdynamic left ventricle and excellent right ventricular systolic function with no primary valve or pericardial disease There is normal caliber to the inferior vena cava with normal inspiratory collapse Skin is intact no livedo no acrocyanosis Objective Data Labs CBC & Chem 7: 12/26/21 05:10 12/26/21 05:10 Labs: Laboratory Results - last 24 hr 12/25/21 12/25/21 12/26/21 18:00 23:34 05:10 WBC RBC Hgb Hct MCV MCH MCHC RDW Plt Count MPV Immature Gran % (Auto) Neut % (Auto) Lymph % (Auto) [place] % (Auto) Eos % (Auto) Baso % (Auto) Lymph # (Auto) [place] # (Auto) Eos # (Auto) Baso # (Auto) Abs Immat Gran (auto) Absolute Neuts (auto) Absolute Nucleated RBC Nucleated RBC % (auto) Smear Tech's Comments VBG pH VBG pCO2 VBG pO2 VBG HCO3 VBG O2 Saturation VBG Base Excess Sodium 140 Potassium 4.2 Chloride 94 L Carbon Dioxide 37 H Anion Gap 13 BUN 22 H Creatinine 0.56 Estim Creat Clear Calc 128.6 Estimated GFR > 60 POC Glucose 230 H 176 H Random Glucose 242 H Calcium 9.0 Phosphorus 3.3 Magnesium 1.9 12/26/21 12/26/21 12/26/21 05:10 05:16 05:35 WBC 10.6 RBC 3.90 L Hgb 11.3 L Hct 37.3 MCV 95.6 MCH 29.0 MCHC 30.3 L RDW 13.5 Plt Count 231 MPV 9.2 L Immature Gran % (Auto) 0.9 H Neut % (Auto) 90.3 H Lymph % (Auto) 2.7 L [place] % (Auto) 6.0 Eos % (Auto) 0.0 Baso % (Auto) 0.1 Lymph # (Auto) 0.3 L [place] # (Auto) 0.6 Eos # (Auto) 0.0 Baso # (Auto) 0.0 Abs Immat Gran (auto) 0.10 H Absolute Neuts (auto) 9.5 H Absolute Nucleated RBC 0.020 H Nucleated RBC % (auto) 0.2 Smear Tech's Comments VERIFIED VBG pH 7.46 H VBG pCO2 59 VBG pO2 41 VBG HCO3 42 H VBG O2 Saturation 66.0 VBG Base Excess 16.1 Sodium Potassium Chloride Carbon Dioxide Anion Gap BUN Creatinine Estim Creat Clear Calc Estimated GFR POC Glucose 211 H Random Glucose Calcium Phosphorus Magnesium 12/26/21 12:45 WBC RBC Hgb Hct MCV MCH MCHC RDW Plt Count MPV Immature Gran % (Auto) Neut % (Auto) Lymph % (Auto) [place] % (Auto) Eos % (Auto) Baso % (Auto) Lymph # (Auto) [place] # (Auto) Eos # (Auto) Baso # (Auto) Abs Immat Gran (auto) Absolute Neuts (auto) Absolute Nucleated RBC Nucleated RBC % (auto) Smear Tech's Comments VBG pH VBG pCO2 VBG pO2 VBG HCO3 VBG O2 Saturation VBG Base Excess Sodium Potassium Chloride Carbon Dioxide Anion Gap BUN Creatinine Estim Creat Clear Calc Estimated GFR POC Glucose 306 H Random Glucose Calcium Phosphorus Magnesium Microbiology Microbiology Results: Microbiology 12/21/21 18:21 Blood - Venous Blood Culture - Preliminary No growth after 48 hours. 12/21/21 18:21 Blood - Venous Blood Culture - Preliminary No growth after 48 hours. Progress Note: A&P Assessment and plan (1) Asthmatic bronchitis with acute exacerbation: Status: Acute (2) Status asthmaticus with COPD (chronic obstructive pulmonary disease): Status: Acute (3) Viral syndrome: Status: Acute (4) COPD exacerbation: Status: Acute (5) Leukocytosis: Status: Acute (6) Acute respiratory failure with hypoxia: Status: Acute (7) COPD mixed type: Status: Acute (8) Leukocytosis: Status: Acute (9) Alkalosis: Status: Acute (10) Close exposure to COVID-19 virus: Status: Acute (11) Acute exacerbation of chronic obstructive airways disease: Status: Acute (12) Acute on chronic respiratory failure with hypoxia and hypercapnia: Status: Acute (13) Pleuritic chest pain: Status: Acute Plan So continued ventilator support and aggressive short-acting bronchodilators and steroids Quality Stroke Does the patient have a stroke diagnosis?: No VTE Prior VTE?: No VTE Risk Level:: Medical - moderate - high VTE Device Contraindication: Treatment Not Indicated VTE Drug Contraindication: N/A - Med Ordered
[2021-12-26 18:12] LABS: Glucose, Whole Blood 229 mg/dL (60-115)
[2021-12-26] MEDS: Montelukast Sodium 10 MG TABLET PO (19:53)
[2021-12-26 21:21] LABS: Glucose, Whole Blood 257 mg/dL (60-115)
[2021-12-26 23:48] LABS: Glucose, Whole Blood 256 mg/dL (60-115)
[2021-12-27] VITALS (33 sets, daily range): BP systolic 117–171; BP diastolic 81–104; PULSE 100–126; RESP 17–25; TEMP 34.5–37.2; O2SAT 92–96; BMI 35.9
--- NOTE | 2021-12-27 00:19 | PC.NURSE ---
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
[2021-12-27] MEDS: propofoL 1,000 MG/100 ML VIAL 29.91 MG IVCONT ×3 (01:33→07:35)
[2021-12-27] MEDS: Albuterol/Iprat 2.5/0.5MG 3 ML AMPUL.NEB INHALE ×5 (03:33→19:54)
[2021-12-27 05:42] LABS: Glucose, Whole Blood 276 mg/dL (60-115)
[2021-12-27 05:42] LABS: VBG Base Excess 15.4 mmol/L; VBG HCO3 41 mmol/L (22-26); VBG pCO2 53 mmHg; VBG pH 7.49 (7.32-7.43); VBG pO2 52 mmHg
[2021-12-27 05:44] LABS: MANUAL DIFF FLAG NO
[2021-12-27 05:46] LABS: Basophils Percent Auto 0.2 % (0-2); Hematocrit 40.2 % (37.0-47.0); Hemoglobin 12.3 g/dl (12.0-16.0); Imm Gran Abs Auto 0.14 X10*3/uL (0.00-0.03); Imm Gran Pct Auto 1.2 % (0.0-0.4); Lymphocytes Absolute Auto 0.4 X10*3/uL (1.2-4.9); Lymphocytes Percent Auto 3.3 % (20-40); Mean Corpuscular HGB Conc 30.6 g/dl (31.0-35.0); Mean Corpuscular Hemoglobin 28.5 pg (27.0-33.0); Mean Corpuscular Volume 93.3 fL (80.0-98.0); Mean Platelet Volume 9.2 fL (9.4-12.3); Monocytes Absolute Auto 0.8 X10*3/uL (0.1-1.2); Monocytes Percent Auto 6.8 % (2-11); Neutrophils Absolute Auto 10.4 x10*3/uL (2.0-8.3); Neutrophils Percent Auto 88.5 % (45-73); Platelet Count 237 X10*3/uL (160-400); Red Blood Count 4.31 X10*6/uL (4.20-5.50); Red Cell Distribution Width 13.2 % (11.0-16.0); White Blood Count 11.7 X10*3/uL (4.8-10.8)
[2021-12-27] MEDS: methylPREDNISolone Sod Succ 40 MG/ML VIAL IVPUSH ×2 (05:59→18:59)
[2021-12-27] MEDS: Heparin Sodium,Porcine 5,000 UNIT/ML VIAL 5000 UNIT SUBCUT ×3 (05:59→22:22)
[2021-12-27] MEDS: Insulin Lispro 100 UNIT/ML 3 ML VIAL SUBCUT ×3 (06:00→18:58)
[2021-12-27 06:02] LABS: Anion Gap 15 (12-20); Blood Urea Nitrogen 23 mg/dL (9-16); Calcium 9.2 mg/dL (8.4-10.2); Carbon Dioxide 37 mmol/L (22-29); Chloride 94 mmol/L (96-108); Creatinine Clr Calc Pharmacy 105.8; Estimated Glomerular Filt Rate > 60; Glucose Random 308 mg/dL (60-115); Magnesium 1.9 mg/dL (1.6-2.6); Phosphorus 3.4 mg/dL (2.7-4.5); Potassium 4.6 mmol/L (3.3-5.1); Sodium 141 mmol/L (135-145)
[2021-12-27 06:03] LABS: Venous Blood Gas Refer to POC result
[2021-12-27] MEDS: Midazolam HCl/NS 50 MG/50 ML PLAST..BAG IVCONT (06:16)
[2021-12-27 07:34] LABS: Glucose, Whole Blood 234 mg/dL (60-115)
[2021-12-27] MEDS: methADONE HCl 20 MG/2 ML ORAL.CONC 50 MG PO (07:52)
[2021-12-27] MEDS: propofoL 1,000 MG/100 ML VIAL 26.92 MG IVCONT (10:37)
[2021-12-27 12:02] LABS: Glucose, Whole Blood 231 mg/dL (60-115)
--- NOTE | 2021-12-27 13:10 | P.PNCC_ITS ---
Subjective Subjective Date of Service: 12/27/21 Interval History: 51-year-old extremely anxious primary hyper ventilator with severe E active airway disease who was in excess in extremis related to respiratory failure with acute on chronic hypercarbic and hypoxic respiratory failure coming to here for intubation without complication and placement of central line maintaining CVP is of 7-8 consistently so no signs of any fluid overload issue and and the clearly in status asthmaticus apparently an underlying RSV infection was the precipitant but I did notice that she has severe auto PEEP and air trapping and basically strains for excessive of volumes tidal volumes of 3193-0180 cc but she sedated and intubated doing very comfortably well with just a 7 L minute ventilation requirement and FiO2 of 30% and spent all morning on pressure support but at a higher level and then was placed back to rest and kept as she still become a little bit more the hypertensive tachycardic and tachypneic but still remains afebrile Critical Care Time (minutes): 45 Physical Exam Vital Signs: Vital Signs: Last Vital Signs Temp 98.9 F 12/27/21 08:00 Pulse 103 H 12/27/21 13:00 Resp 18 12/27/21 13:00 BP 117/81 12/27/21 13:00 Pulse Ox 95 12/27/21 13:00 O2 Del Method 12/27/21 13:00 O2 Flow Rate 30 12/25/21 07:33 FiO2 30 12/27/21 13:00 Oxygen Flow Rate 4 12/22/21 16:00 BMI result Body Mass Index 35.9 Sedated intubated no diaphragmatic effort no accessory muscle use and minute ventilation requirements are minimal at as is FiO2 Neurologically nonfocal Cardiac exam by bedside echo showing normal LV and RV reserve with normal valves and pericardium Abdomen is soft tolerating feedings no organomegaly Objective Data Labs CBC & Chem 7: 12/28/21 04:35 12/28/21 04:35 Labs: Laboratory Results - last 24 hr 12/26/21 12/26/21 12/26/21 18:09 21:17 23:44 WBC RBC Hgb Hct MCV MCH MCHC RDW Plt Count MPV Immature Gran % (Auto) Neut % (Auto) Lymph % (Auto) [place] % (Auto) Eos % (Auto) Baso % (Auto) Lymph # (Auto) [place] # (Auto) Eos # (Auto) Baso # (Auto) Abs Immat Gran (auto) Absolute Neuts (auto) Absolute Nucleated RBC Nucleated RBC % (auto) VBG pH VBG pCO2 VBG pO2 VBG HCO3 VBG O2 Saturation VBG Base Excess Sodium Potassium Chloride Carbon Dioxide Anion Gap BUN Creatinine Estim Creat Clear Calc Estimated GFR POC Glucose 229 H 257 H 256 H Random Glucose Calcium Phosphorus Magnesium 12/27/21 12/27/21 12/27/21 05:34 05:35 05:35 WBC 11.7 H RBC 4.31 Hgb 12.3 Hct 40.2 MCV 93.3 MCH 28.5 MCHC 30.6 L RDW 13.2 Plt Count 237 MPV 9.2 L Immature Gran % (Auto) 1.2 H Neut % (Auto) 88.5 H Lymph % (Auto) 3.3 L [place] % (Auto) 6.8 Eos % (Auto) 0.0 Baso % (Auto) 0.2 Lymph # (Auto) 0.4 L [place] # (Auto) 0.8 Eos # (Auto) 0.0 Baso # (Auto) 0.0 Abs Immat Gran (auto) 0.14 H Absolute Neuts (auto) 10.4 H Absolute Nucleated RBC 0.000 Nucleated RBC % (auto) 0.0 VBG pH VBG pCO2 VBG pO2 VBG HCO3 VBG O2 Saturation VBG Base Excess Sodium 141 Potassium 4.6 Chloride 94 L Carbon Dioxide 37 H Anion Gap 15 BUN 23 H Creatinine 0.62 Estim Creat Clear Calc 105.8 Estimated GFR > 60 POC Glucose 276 H Random Glucose 308 H Calcium 9.2 Phosphorus 3.4 Magnesium 1.9 12/27/21 12/27/21 12/27/21 05:36 07:30 11:54 WBC RBC Hgb Hct MCV MCH MCHC RDW Plt Count MPV Immature Gran % (Auto) Neut % (Auto) Lymph % (Auto) [place] % (Auto) Eos % (Auto) Baso % (Auto) Lymph # (Auto) [place] # (Auto) Eos # (Auto) Baso # (Auto) Abs Immat Gran (auto) Absolute Neuts (auto) Absolute Nucleated RBC Nucleated RBC % (auto) VBG pH 7.49 H VBG pCO2 53 VBG pO2 52 VBG HCO3 41 H VBG O2 Saturation 78.0 VBG Base Excess 15.4 Sodium Potassium Chloride Carbon Dioxide Anion Gap BUN Creatinine Estim Creat Clear Calc Estimated GFR POC Glucose 234 H 231 H Random Glucose Calcium Phosphorus Magnesium Microbiology Microbiology Results: Microbiology 12/21/21 18:21 Blood - Venous Blood Culture - Final No growth after 5 days. 12/21/21 18:21 Blood - Venous Blood Culture - Final No growth after 5 days. Progress Note: A&P Assessment and plan (1) Asthmatic bronchitis with acute exacerbation: Status: Acute (2) Status asthmaticus with COPD (chronic obstructive pulmonary disease): Status: Acute (3) Viral syndrome: Status: Acute (4) COPD exacerbation: Status: Acute (5) Leukocytosis: Status: Acute (6) Acute respiratory failure with hypoxia: Status: Acute (7) COPD mixed type: Status: Acute (8) Leukocytosis: Status: Acute (9) Alkalosis: Status: Acute (10) Close exposure to COVID-19 virus: Status: Acute (11) Acute exacerbation of chronic obstructive airways disease: Status: Acute (12) Acute on chronic respiratory failure with hypoxia and hypercapnia: Status: Acute (13) Pleuritic chest pain: Status: Acute Plan Plan is to continue supportive care including aggressive short-acting bronchodilators and steroids and just simply waiting for all signs of any potential underlying withdrawal to be clinically gone before weaning both the Versed as well as the propofol so will recheck in the morning Quality Stroke Does the patient have a stroke diagnosis?: No VTE Prior VTE?: No VTE Risk Level:: Medical - moderate - high VTE Device Contraindication: Treatment Not Indicated VTE Drug Contraindication: N/A - Med Ordered
--- NOTE | 2021-12-27 14:15 | MHC.CM.PN ---
Pt to possibly begin vent weaning attempts today: referred to STR w/Methadone ability should pt require placement. CM to follow
[2021-12-27] MEDS: Chlorhexidine Gluc Oral Rinse 15 ML MOUTHWASH BUCCAL ×2 (16:08→22:23)
[2021-12-27 18:25] LABS: Glucose, Whole Blood 217 mg/dL (60-115)
[2021-12-27] MEDS: propofoL 1,000 MG/100 ML VIAL 5.98 MG IVCONT (19:03)
[2021-12-27] MEDS: Montelukast Sodium 10 MG TABLET PO (22:23)
--- NOTE | 2021-12-27 23:54 | PC.NURSE ---
Addendum entered by Jadiel Mas RN 12/28/21 00:04: ETCO2 was 56-59 in daytime, MD aware; during spontaneous breathing trial, ETCO2 as high as 65-72; MD aware Original Note: Assumed care at 11 am, patient was found to be unarousable -5 RASS no cough, no gag, no movement of extremities. Patient was found to have right pupil smaller than left pupil slightly, R pupil 1 mm, left pupil 2 mm, sluggishly reactive. Discussed with MD and downtitrated the propofol to the point that patient was arousable. She was found to be following commands and denied pain, denied discomfort, and MD ordered sedation vacation and this was done at 14:15, it was somewhat well tolerated, but within an hour, BP was up to 171/104, and discussed with MD , and restarted sedation at 50% of previous dose: 10 mcg/kg/min, and versed was continued throughout sedation vacation per MD. Patient now on propofol at 15 mcg/kg/min, versed 2, well tolerated.#7.5 ETT at 25 cm, with AC settings 18;350;5; 30%. Odd bruising on abdomen, continuing to monitor.
[2021-12-27 23:59] LABS: Glucose, Whole Blood 215 mg/dL (60-115)
[2021-12-28] VITALS (38 sets, daily range): BP systolic 120–168; BP diastolic 75–102; PULSE 86–122; RESP 14–23; TEMP 34.1–44.4; O2SAT 90–100; BMI 35.4
[2021-12-28] MEDS: 0.9 % Sodium Chloride Flush 3 ML SYRINGE IVFLUSH ×3 (00:17→22:33)
[2021-12-28] MEDS: Albuterol/Iprat 2.5/0.5MG 3 ML AMPUL.NEB INHALE ×5 (00:21→20:10)
[2021-12-28] MEDS: Midazolam HCl/NS 50 MG/50 ML PLAST..BAG IVCONT (00:25)
[2021-12-28] MEDS: Insulin Lispro 100 UNIT/ML 3 ML VIAL SUBCUT ×3 (00:25→11:49)
[2021-12-28] MEDS: propofoL 1,000 MG/100 ML VIAL 17.95 MG IVCONT (00:26)
[2021-12-28 04:45] LABS: VBG Base Excess 13.6 mmol/L; VBG HCO3 40 mmol/L (22-26); VBG pCO2 58 mmHg; VBG pH 7.44 (7.32-7.43); VBG pO2 49 mmHg
[2021-12-28 04:46] LABS: MANUAL DIFF FLAG NO
[2021-12-28 04:51] LABS: Venous Blood Gas Refer to POC result
[2021-12-28 04:52] LABS: Basophils Percent Auto 0.1 % (0-2); Hematocrit 40.5 % (37.0-47.0); Hemoglobin 12.5 g/dl (12.0-16.0); Imm Gran Abs Auto 0.16 X10*3/uL (0.00-0.03); Imm Gran Pct Auto 1.1 % (0.0-0.4); Lymphocytes Absolute Auto 0.8 X10*3/uL (1.2-4.9); Lymphocytes Percent Auto 5.9 % (20-40); Mean Corpuscular HGB Conc 30.9 g/dl (31.0-35.0); Mean Corpuscular Hemoglobin 29.1 pg (27.0-33.0); Mean Corpuscular Volume 94.2 fL (80.0-98.0); Mean Platelet Volume 9.4 fL (9.4-12.3); Monocytes Absolute Auto 0.8 X10*3/uL (0.1-1.2); Monocytes Percent Auto 5.9 % (2-11); NRBC Pct Auto 0.1 /100WBC (0.0-0.2); Neutrophils Absolute Auto 12.2 x10*3/uL (2.0-8.3); Platelet Count 214 X10*3/uL (160-400); Red Cell Distribution Width 13.5 % (11.0-16.0)
[2021-12-28 05:11] LABS: Alanine Aminotransferase 25 U/L (0-31); Albumin Level 3.4 g/dL (3.5-5.0); Alkaline Phosphatase 67 U/L (39-117); Anion Gap 16 (12-20); Aspartate Amino Transferase 17 U/L (5-31); Bilirubin Total 0.2 mg/dL (0.0-1.0); Blood Urea Nitrogen 26 mg/dL (9-16); Calcium 9.1 mg/dL (8.4-10.2); Carbon Dioxide 36 mmol/L (22-29); Chloride 92 mmol/L (96-108); Creatinine Clr Calc Pharmacy 116.5; Estimated Glomerular Filt Rate > 60; Glucose Random 228 mg/dL (60-115); Potassium 4.7 mmol/L (3.3-5.1); Sodium 139 mmol/L (135-145); Total Protein 5.8 g/dL (6.5-8.0)
[2021-12-28 05:39] LABS: Glucose, Whole Blood 171 mg/dL (60-115)
[2021-12-28] MEDS: methylPREDNISolone Sod Succ 40 MG/ML VIAL IVPUSH ×2 (06:29→18:11)
[2021-12-28] MEDS: methADONE HCl 20 MG/2 ML ORAL.CONC 50 MG PO (08:44)
[2021-12-28] MEDS: Chlorhexidine Gluc Oral Rinse 15 ML MOUTHWASH BUCCAL (08:44)
[2021-12-28] MEDS: Heparin Sodium,Porcine 5,000 UNIT/ML VIAL 5000 UNIT SUBCUT ×3 (08:44→22:32)
--- NOTE | 2021-12-28 10:01 | MHC.CLN ---
PT REMAINS INTUBATED AND SEDATED GLUCERNA TF CURRENTLY RUNNING AT 20ML/HR WITH 30ML PROSOURCE TID AND 240ML FREE WATER FLUSHES Q 6 HR PROVIDES 600KCALS (1389KCLAS WITH SEDATION), 45G PROTEIN (1.08G/KG), 1369ML FREE WATER FROM FORMULA RECOMMEND INCREASING FORMULA TO GLUCERNA 1.0 AT MAX GOAL RATE 50ML/HR WITH 30ML PROSOURCE BID AND 120ML FREE WATER FLUSHES Q 6 HRS TO PROVIDE 1320KCALS (1557KCALS WITH SEDATION; 26KCALS/KG), 80G TOTAL PROTEIN (1.3G/KG), 1503ML TOTAL WATER FROM FORMULA AND FLUSHES (25ML/KG) MONITOR TOLERANCE, RESIDUALS AND LYTES
[2021-12-28] MEDS: dexmedeTOMIDidine HCL/NS 400 MCG/100 ML INFUS..BTL 8.5 MCG IVCONT ×2 (11:11→20:07)
[2021-12-28 11:51] LABS: Glucose, Whole Blood 228 mg/dL (60-115)
--- NOTE | 2021-12-28 13:04 | MHC.CM.PN ---
Pt continues in ICU on vent support with goals of weaning in progress. Received call from Maggie at [facility] [phone]. If pt able to return to home, please call Maggie for resumption of Methadone dosing. At this time, pt's final disposition is undetermined. STR referrals have been made should pt require more care at time of d/c. CM to follow
[2021-12-28] MEDS: Racepinephrine HCL 0.5 ML VIAL.NEB INHALE (13:52)
[2021-12-28 17:58] LABS: Glucose, Whole Blood 169 mg/dL (60-115)
--- NOTE | 2021-12-28 18:54 | P.PNCC_ITS ---
Subjective Subjective Date of Service: 12/28/21 Interval History: 51-year-old obese patient with underlying COPD in clinical status asthmaticus with severe auto PEEP an air trapping who was also a primary hyper ventilator and always he using accessory muscles and and diaphragmatic effort because of air trapping and golfs large unnecessary tidal volumes up to 1400 cc per breath contributing to the air trapping issue and has been all morning on pressure support as there are no signs whatsoever of withdrawal no shakes no no sympathetic issues she is normotensive bedside echo with normal LV function and and no use of accessory muscles no diaphragmatic effort and tidal volumes of 350-380 cc are perfect because she has a stable end-tidal CO2 and low 50s and state and stable oxygen saturation in the high 90s with the head and after stopping the propofol in the Versed she had excellent cognitive function but then and M upon extubation she immediately started the hyperventilating which was becoming a cell full filling issue and and on dexmedetomidine she literally calmed with reduced tidal volumes and she was able to eliminate the auto PEEP and this was a much more physiologic patient for her so we will continue to watch her here overnight unless we are in a push comes to show situation as she is doing comfortably well but probably needs something benign for sedation so if not dexmedetomidine we might be able to switch her because of her hypertension to clonidine at because I have eliminated hydralazine due to a per previous positive [place] Critical Care Time (minutes): 60 Physical Exam Vital Signs: Vital Signs: Last Vital Signs Temp 98.4 F 12/28/21 16:00 Pulse 86 12/28/21 18:00 Resp 16 12/28/21 18:00 BP 138/87 12/28/21 18:00 Pulse Ox 91 L 12/28/21 18:00 O2 Del Method 12/28/21 18:00 O2 Flow Rate 1 12/28/21 14:00 FiO2 26 12/28/21 18:00 Oxygen Flow Rate 4 12/22/21 16:00 BMI result Body Mass Index 35.4 Exam is could his calm off the sedation except for dexmedetomidine she is n onfocal calm sleeping tidal volumes more modest although probably still excessive in in the 800 cc range but no manifestation of air trapping Cardiac exam class 1 by bedside echo Abdomen is soft no organomegaly and she passed a swallow test and is already on water sips Objective Data Labs CBC & Chem 7: 12/28/21 04:35 12/28/21 04:35 Labs: Laboratory Results - last 24 hr 12/27/21 12/28/21 12/28/21 23:55 04:35 04:35 WBC 14.0 H RBC 4.30 Hgb 12.5 Hct 40.5 MCV 94.2 MCH 29.1 MCHC 30.9 L RDW 13.5 Plt Count 214 MPV 9.4 Immature Gran % (Auto) 1.1 H Neut % (Auto) 87.0 H Lymph % (Auto) 5.9 L [place] % (Auto) 5.9 Eos % (Auto) 0.0 Baso % (Auto) 0.1 Lymph # (Auto) 0.8 L [place] # (Auto) 0.8 Eos # (Auto) 0.0 Baso # (Auto) 0.0 Abs Immat Gran (auto) 0.16 H Absolute Neuts (auto) 12.2 H Absolute Nucleated RBC 0.020 H Nucleated RBC % (auto) 0.1 VBG pH VBG pCO2 VBG pO2 VBG HCO3 VBG O2 Saturation VBG Base Excess Sodium 139 Potassium 4.7 Chloride 92 L Carbon Dioxide 36 H Anion Gap 16 BUN 26 H Creatinine 0.57 Estim Creat Clear Calc 116.5 Estimated GFR > 60 POC Glucose 215 H Random Glucose 228 H Calcium 9.1 Total Bilirubin 0.2 AST 17 D ALT 25 Alkaline Phosphatase 67 D Total Protein 5.8 L Albumin 3.4 L 12/28/21 12/28/21 12/28/21 04:38 05:33 11:44 WBC RBC Hgb Hct MCV MCH MCHC RDW Plt Count MPV Immature Gran % (Auto) Neut % (Auto) Lymph % (Auto) [place] % (Auto) Eos % (Auto) Baso % (Auto) Lymph # (Auto) [place] # (Auto) Eos # (Auto) Baso # (Auto) Abs Immat Gran (auto) Absolute Neuts (auto) Absolute Nucleated RBC Nucleated RBC % (auto) VBG pH 7.44 H VBG pCO2 58 VBG pO2 49 VBG HCO3 40 H VBG O2 Saturation 76.0 VBG Base Excess 13.6 Sodium Potassium Chloride Carbon Dioxide Anion Gap BUN Creatinine Estim Creat Clear Calc Estimated GFR POC Glucose 171 H 228 H Random Glucose Calcium Total Bilirubin AST ALT Alkaline Phosphatase Total Protein Albumin 12/28/21 17:55 WBC RBC Hgb Hct MCV MCH MCHC RDW Plt Count MPV Immature Gran % (Auto) Neut % (Auto) Lymph % (Auto) [place] % (Auto) Eos % (Auto) Baso % (Auto) Lymph # (Auto) [place] # (Auto) Eos # (Auto) Baso # (Auto) Abs Immat Gran (auto) Absolute Neuts (auto) Absolute Nucleated RBC Nucleated RBC % (auto) VBG pH VBG pCO2 VBG pO2 VBG HCO3 VBG O2 Saturation VBG Base Excess Sodium Potassium Chloride Carbon Dioxide Anion Gap BUN Creatinine Estim Creat Clear Calc Estimated GFR POC Glucose 169 H Random Glucose Calcium Total Bilirubin AST ALT Alkaline Phosphatase Total Protein Albumin Microbiology Microbiology Results: Microbiology 12/21/21 18:21 Blood - Venous Blood Culture - Final No growth after 5 days. 12/21/21 18:21 Blood - Venous Blood Culture - Final No growth after 5 days. Progress Note: A&P Assessment and plan (1) Asthmatic bronchitis with acute exacerbation: Status: Acute (2) Status asthmaticus with COPD (chronic obstructive pulmonary disease): Status: Acute (3) Viral syndrome: Status: Acute (4) COPD exacerbation: Status: Acute (5) Leukocytosis: Status: Acute (6) Acute respiratory failure with hypoxia: Status: Acute (7) COPD mixed type: Status: Acute (8) Leukocytosis: Status: Acute (9) Alkalosis: Status: Acute (10) Close exposure to COVID-19 virus: Status: Acute (11) Acute exacerbation of chronic obstructive airways disease: Status: Acute (12) Acute on chronic respiratory failure with hypoxia and hypercapnia: Status: Acute (13) Pleuritic chest pain: Status: Acute Plan The plan is to continue supportive care with the BiPAP although it does not appear to me to be necessary but with much lower almost nominal levels of pressure an including 5 cm water of PEEP and dexmedetomidine overnight and if pressure permits potential clonidine to go upstairs to the floor with Quality Stroke Does the patient have a stroke diagnosis?: No VTE Prior VTE?: No VTE Risk Level:: Medical - moderate - high VTE Device Contraindication: Treatment Not Indicated VTE Drug Contraindication: N/A - Med Ordered
[2021-12-28] MEDS: Salmeterol Xinafoate 50 MCG BLST.W.DEV 1 PUFF INHALE (20:20)
[2021-12-29] VITALS (24 sets, daily range): BP systolic 125–181; BP diastolic 83–116; PULSE 82–136; RESP 12–28; TEMP 35.2–37.4; O2SAT 83–95; BMI 34.9
[2021-12-29 00:04] LABS: Glucose, Whole Blood 255 mg/dL (60-115)
[2021-12-29] MEDS: Insulin Lispro 100 UNIT/ML 3 ML VIAL SUBCUT ×3 (00:29→21:15)
[2021-12-29 02:53] LABS: VBG Base Excess 14.2 mmol/L; VBG HCO3 41 mmol/L (22-26); VBG pCO2 61 mmHg; VBG pH 7.43 (7.32-7.43); VBG pO2 45 mmHg
[2021-12-29 03:09] LABS: MANUAL DIFF FLAG NO
[2021-12-29 03:12] LABS: Venous Blood Gas Refer to POC result
[2021-12-29 03:15] LABS: Basophils Percent Auto 0.2 % (0-2); Hematocrit 39.9 % (37.0-47.0); Hemoglobin 12.1 g/dl (12.0-16.0); Imm Gran Abs Auto 0.13 X10*3/uL (0.00-0.03); Lymphocytes Absolute Auto 0.9 X10*3/uL (1.2-4.9); Lymphocytes Percent Auto 7.1 % (20-40); Mean Corpuscular HGB Conc 30.3 g/dl (31.0-35.0); Mean Corpuscular Hemoglobin 28.3 pg (27.0-33.0); Mean Corpuscular Volume 93.4 fL (80.0-98.0); Mean Platelet Volume 9.4 fL (9.4-12.3); Monocytes Absolute Auto 0.7 X10*3/uL (0.1-1.2); Monocytes Percent Auto 5.4 % (2-11); Neutrophils Absolute Auto 11.2 x10*3/uL (2.0-8.3); Neutrophils Percent Auto 86.3 % (45-73); Platelet Count 207 X10*3/uL (160-400); Red Blood Count 4.27 X10*6/uL (4.20-5.50); Red Cell Distribution Width 13.2 % (11.0-16.0)
[2021-12-29 03:37] LABS: Alanine Aminotransferase 25 U/L (0-31); Albumin Level 3.4 g/dL (3.5-5.0); Alkaline Phosphatase 67 U/L (39-117); Anion Gap 14 (12-20); Aspartate Amino Transferase 16 U/L (5-31); Bilirubin Total 0.3 mg/dL (0.0-1.0); Blood Urea Nitrogen 21 mg/dL (9-16); Calcium 9.2 mg/dL (8.4-10.2); Carbon Dioxide 39 mmol/L (22-29); Chloride 92 mmol/L (96-108); Creatinine Clr Calc Pharmacy 126.6; Estimated Glomerular Filt Rate > 60; Glucose Random 249 mg/dL (60-115); Potassium 4.7 mmol/L (3.3-5.1); Sodium 140 mmol/L (135-145); Total Protein 5.9 g/dL (6.5-8.0)
[2021-12-29] MEDS: Albuterol/Iprat 2.5/0.5MG 3 ML AMPUL.NEB INHALE ×2 (04:47→18:40)
[2021-12-29 05:39] LABS: Glucose, Whole Blood 167 mg/dL (60-115)
[2021-12-29] MEDS: methylPREDNISolone Sod Succ 40 MG/ML VIAL IVPUSH ×2 (05:41→18:38)
[2021-12-29] MEDS: Heparin Sodium,Porcine 5,000 UNIT/ML VIAL 5000 UNIT SUBCUT ×2 (05:43→16:36)
[2021-12-29] MEDS: methADONE HCl 20 MG/2 ML ORAL.CONC 50 MG PO (08:25)
[2021-12-29] MEDS: 0.9 % Sodium Chloride Flush 3 ML SYRINGE IVFLUSH ×2 (08:25→16:38)
[2021-12-29 11:34] LABS: Glucose, Whole Blood 167 mg/dL (60-115)
[2021-12-29] MEDS: cloNIDine 0.1 MG PATCH.TDWK TRANSDERMA (13:29)
--- NOTE | 2021-12-29 13:39 | PM.CCPN ---
Subjective Subjective Date of Service: 12/29/21 Interval History: 51-year-old obese female with severe COPD and severe reactive airway disease with UT issue with air trapping and the other problem is that she hyperventilates and draws in and of very excessive tidal volume and then through air trapping do eventually develops respiratory distress and this we note because while coming off the ventilator on pressure support weaning she did beautifully with tidal volumes of 350-390 cc with which she had a stable end-tidal CO2 therefore adequate minute ventilation and her requirements were only 7 L and she oxygenated at 99% with a an FiO2 of only 30% and is soon as she comes off sedation she she immediately starts using accessory muscles and not to provide herself with adequate tidal volume but it winds up being pure hyperventilation were again resulting in the air trapping issue so bear this in mind and because she did so well with dexmedetomidine when I stopped it I am using clonidine patch 0.1 mg as her antihypertensive but also potentially it it might help to modify behavior She wean well passed a swallow exam back on a diet again and is return to her long-acting bronchodilators and inhaled steroids as part of her regimen Critical Care Time (minutes): 45 Physical Exam Vital Signs: Vital Signs: Last Vital Signs Temp 98.7 F 12/29/21 08:00 Pulse 107 H 12/29/21 13:00 Resp 12 12/29/21 13:00 BP 138/97 H 12/29/21 13:00 Pulse Ox 94 12/29/21 13:00 O2 Del Method 12/29/21 13:00 O2 Flow Rate 3 12/29/21 13:00 FiO2 26 12/29/21 12:00 Oxygen Flow Rate 4 12/22/21 16:00 BMI result Body Mass Index 34.9 Bedside echo with normal LV and RV function Awake alert oriented and nonfocal neurologically Absent breath sounds bilaterally no adventitious sounds and no accessory muscle or diaphragmatic effort Abdomen soft tolerating diet no organomegaly Objective Data Labs CBC & Chem 7: 12/29/21 02:45 12/29/21 02:45 Labs: Laboratory Results - last 24 hr 12/28/21 12/28/21 12/29/21 17:55 23:58 02:45 WBC 13.0 H RBC 4.27 Hgb 12.1 Hct 39.9 MCV 93.4 MCH 28.3 MCHC 30.3 L RDW 13.2 Plt Count 207 MPV 9.4 Immature Gran % (Auto) 1.0 H Neut % (Auto) 86.3 H Lymph % (Auto) 7.1 L [place] % (Auto) 5.4 Eos % (Auto) 0.0 Baso % (Auto) 0.2 Lymph # (Auto) 0.9 L [place] # (Auto) 0.7 Eos # (Auto) 0.0 Baso # (Auto) 0.0 Abs Immat Gran (auto) 0.13 H Absolute Neuts (auto) 11.2 H Absolute Nucleated RBC 0.000 Nucleated RBC % (auto) 0.0 VBG pH VBG pCO2 VBG pO2 VBG HCO3 VBG O2 Saturation VBG Base Excess Sodium Potassium Chloride Carbon Dioxide Anion Gap BUN Creatinine Estim Creat Clear Calc Estimated GFR POC Glucose 169 H 255 H Random Glucose Calcium Total Bilirubin AST ALT Alkaline Phosphatase Total Protein Albumin 12/29/21 12/29/21 12/29/21 02:45 02:45 05:35 WBC RBC Hgb Hct MCV MCH MCHC RDW Plt Count MPV Immature Gran % (Auto) Neut % (Auto) Lymph % (Auto) [place] % (Auto) Eos % (Auto) Baso % (Auto) Lymph # (Auto) [place] # (Auto) Eos # (Auto) Baso # (Auto) Abs Immat Gran (auto) Absolute Neuts (auto) Absolute Nucleated RBC Nucleated RBC % (auto) VBG pH 7.43 VBG pCO2 61 VBG pO2 45 VBG HCO3 41 H VBG O2 Saturation 68.0 VBG Base Excess 14.2 Sodium 140 Potassium 4.7 Chloride 92 L Carbon Dioxide 39 H Anion Gap 14 BUN 21 H Creatinine 0.52 Estim Creat Clear Calc 126.6 Estimated GFR > 60 POC Glucose 167 H Random Glucose 249 H Calcium 9.2 Total Bilirubin 0.3 AST 16 ALT 25 Alkaline Phosphatase 67 Total Protein 5.9 L Albumin 3.4 L 12/29/21 11:28 WBC RBC Hgb Hct MCV MCH MCHC RDW Plt Count MPV Immature Gran % (Auto) Neut % (Auto) Lymph % (Auto) [place] % (Auto) Eos % (Auto) Baso % (Auto) Lymph # (Auto) [place] # (Auto) Eos # (Auto) Baso # (Auto) Abs Immat Gran (auto) Absolute Neuts (auto) Absolute Nucleated RBC Nucleated RBC % (auto) VBG pH VBG pCO2 VBG pO2 VBG HCO3 VBG O2 Saturation VBG Base Excess Sodium Potassium Chloride Carbon Dioxide Anion Gap BUN Creatinine Estim Creat Clear Calc Estimated GFR POC Glucose 167 H Random Glucose Calcium Total Bilirubin AST ALT Alkaline Phosphatase Total Protein Albumin Microbiology Microbiology Results: Microbiology 12/21/21 18:21 Blood - Venous Blood Culture - Final No growth after 5 days. 12/21/21 18:21 Blood - Venous Blood Culture - Final No growth after 5 days. Progress Note: A&P Assessment and plan (1) Asthmatic bronchitis with acute exacerbation: Status: Acute (2) Status asthmaticus with COPD (chronic obstructive pulmonary disease): Status: Acute (3) Viral syndrome: Status: Acute (4) COPD exacerbation: Status: Acute (5) Leukocytosis: Status: Acute (6) Acute respiratory failure with hypoxia: Status: Acute (7) COPD mixed type: Status: Acute (8) Leukocytosis: Status: Acute (9) Alkalosis: Status: Acute (10) Close exposure to COVID-19 virus: Status: Acute (11) Acute exacerbation of chronic obstructive airways disease: Status: Acute (12) Acute on chronic respiratory failure with hypoxia and hypercapnia: Status: Acute (13) Pleuritic chest pain: Status: Acute Plan The plan therefore is to try to keep her on just nasal cannula during the day continue her long-acting bronchodilators and inhaled steroids and p.r.n. short-acting bronchodilators and I stopped the hydralazine because of a previous lab work that showed CAROLYNE positivity with a speckled pattern it could imply positive single stranded anti DNA and hydralazine would probably be be your culprit so I am using the clonidine patch as her antihypertensive Quality Stroke Does the patient have a stroke diagnosis?: No VTE Prior VTE?: No VTE Risk Level:: Medical - moderate - high VTE Device Contraindication: Treatment Not Indicated VTE Drug Contraindication: N/A - Med Ordered
[2021-12-29 16:45] LABS: Glucose, Whole Blood 94 mg/dL (60-115)
[2021-12-29 21:04] LABS: Glucose, Whole Blood 179 mg/dL (60-115)
[2021-12-29] MEDS: Montelukast Sodium 10 MG TABLET PO (21:16)
[2021-12-30] VITALS (10 sets, daily range): BP systolic 95–163; BP diastolic 83–103; PULSE 101–124; RESP 16–22; TEMP 36.3–37.2; O2SAT 90–95
[2021-12-30] MEDS: Heparin Sodium,Porcine 5,000 UNIT/ML VIAL 5000 UNIT SUBCUT ×4 (00:13→21:50)
[2021-12-30] MEDS: 0.9 % Sodium Chloride Flush 3 ML SYRINGE IVFLUSH ×3 (00:13→17:12)
[2021-12-30] MEDS: Melatonin 3 MG TABLET 6 MG PO (02:32)
[2021-12-30] MEDS: methylPREDNISolone Sod Succ 40 MG/ML VIAL IVPUSH ×2 (05:58→17:12)
[2021-12-30 07:29] LABS: Glucose, Whole Blood 129 mg/dL (60-115)
[2021-12-30] MEDS: Albuterol/Iprat 2.5/0.5MG 3 ML AMPUL.NEB INHALE ×3 (08:08→18:44)
[2021-12-30] MEDS: Salmeterol Xinafoate 50 MCG BLST.W.DEV 1 PUFF INHALE (08:14)
[2021-12-30] MEDS: Budesonide 180 MCG AER.POW.BA 1 PUFF INHALE (08:15)
[2021-12-30] MEDS: Gabapentin 300 MG CAPSULE PO ×2 (09:09→21:50)
[2021-12-30] MEDS: buPROPion HCL 75 MG TABLET 150 MG PO ×2 (09:09→21:57)
[2021-12-30] MEDS: dilTIAZem HCL CD 180 MG CAP.ER.24H 360 MG PO (09:10)
[2021-12-30] MEDS: methADONE HCl 20 MG/2 ML ORAL.CONC 50 MG PO (09:10)
[2021-12-30] MEDS: hydrALAZINE HCl 25 MG TABLET PO ×3 (09:10→21:50)
[2021-12-30] MEDS: Simethicone 80 MG TAB.CHEW PO ×4 (09:18→21:50)
[2021-12-30 11:36] LABS: Glucose, Whole Blood 376 mg/dL (60-115)
--- NOTE | 2021-12-30 11:44 | P.PNIM_ITS ---
Subjective Subjective Date of Service: 12/30/21 Review of Systems Follow up hypoxic resp failure feeling better having abd gassiness Physical Exam Vital Signs: Vital Signs: Last Vital Signs Temp 99.0 F 12/30/21 11:27 Pulse 124 H 12/30/21 11:27 Resp 16 12/30/21 11:27 BP 144/83 H 12/30/21 11:27 Pulse Ox 91 L 12/30/21 11:27 O2 Del Method 12/30/21 11:27 O2 Flow Rate 3 12/30/21 11:27 FiO2 26 12/29/21 12:00 Oxygen Flow Rate 4 12/22/21 16:00 BMI result Body Mass Index 34.9 Appearing in no acute distress lung sounds exp wheezing heart regular rate rhythm, clear S1, S2 positive bowel sounds, abdomen is soft, nontender neuro patient is alert x3, no focal deficits Objective Data Active Medications Albuterol/Ipratropium (Albuterol/Iprat 2.5/0.5mg 3 Ml Ampul.Neb) 3 ml INHALE RQ4H PRN PRN Reason: Dyspnea Last Admin: 12/30/21 08:08 Dose: 3 ml Documented By: BI Budesonide (Budesonide 180 Mcg Aer.Pow.Ba) 1 puff INHALE BID [facility] Last Admin: 12/30/21 08:15 Dose: 1 puff Documented By: BI Bupropion HCl (Bupropion Hcl 75 Mg Tablet) 150 mg PO BID [facility] Last Admin: 12/30/21 09:09 Dose: 150 mg Documented By: LONNIE Dextrose (Dextrose 50 % 25 Gm/50 Ml Syringe) 25 gm IVPUSH Q15M PRN; Protocol PRN Reason: per Hypoglycemia Standing Ord. Dextrose (Dextrose 50 % 25 Gm/50 Ml Syringe) 25 gm IVPUSH Q15M PRN; Protocol PRN Reason: per Hypoglycemia Standing Ord. Dextrose (Dextrose 50 % 25 Gm/50 Ml Syringe) 25 gm IVPUSH Q15M PRN; Protocol PRN Reason: per Hypoglycemia Standing Ord. Diltiazem HCl (Diltiazem Hcl Cd 180 Mg Cap.Er.24h) 360 mg PO DAILY [facility]; Protocol Last Admin: 12/30/21 09:10 Dose: 360 mg Documented By: LONNIE Docusate Sodium (Docusate Sodium 100 Mg Capsule) 100 mg PO DAILY PRN PRN Reason: Constipation Gabapentin (Gabapentin 300 Mg Capsule) 300 mg PO BID [facility] Last Admin: 12/30/21 09:09 Dose: 300 mg Documented By: LONNIE Glucose (Glucose Gel 15 Gm Gel..Gram.) 15 gm PO Q15M PRN; Protocol PRN Reason: per Hypoglycemia Standing Ord. Glucose (Glucose Gel 15 Gm Gel..Gram.) 15 gm PO Q15M PRN; Protocol PRN Reason: per Hypoglycemia Standing Ord. Glucose (Glucose Gel 15 Gm Gel..Gram.) 15 gm PO Q15M PRN; Protocol PRN Reason: per Hypoglycemia Standing Ord. Heparin Sodium (Porcine) (Heparin Sodium,Porcine 5,000 Unit/Ml Vial) 5,000 unit SUBCUT Q8H [facility] Last Admin: 12/30/21 09:10 Dose: 5,000 unit Documented By: LONNIE Hydralazine HCl (Hydralazine Hcl 25 Mg Tablet) 25 mg PO TID [facility]; Protocol Last Admin: 12/30/21 09:10 Dose: 25 mg Documented By: LONNIE Insulin Glargine (Insulin Glargine,Hum.Rec.Anlog 100 Unit/Ml 10 Ml Vial) 45 unit SUBCUT BEDTIME [facility] Insulin Human Lispro (Insulin Lispro 100 Unit/Ml 3 Ml Vial) 0.1 - 10 unit SUBCUT QIDACHS [facility]; Protocol Last Admin: 12/30/21 07:31 Dose: Not Given Documented By: LONNIE Non-Admin Reason: No Insulin Coverage Melatonin (Melatonin 3 Mg Tablet) 6 mg PO BEDTIME PRN PRN Reason: insomnia Last Admin: 12/30/21 02:32 Dose: 6 mg Documented By: NEVIN Methadone HCl (Methadone Hcl 20 Mg/2 Ml Oral.Conc) 50 mg PO DAILY [facility] Last Admin: 12/30/21 09:10 Dose: 50 mg Documented By: LONNIE Methylprednisolone Sodium Succinate (Methylprednisolone Sod Succ 40 Mg/Ml Vial) 40 mg IVPUSH Q12H [facility] Last Admin: 12/30/21 05:58 Dose: 40 mg Documented By: NEVIN Montelukast Sodium (Montelukast Sodium 10 Mg Tablet) 10 mg PO BEDTIME [facility] Last Admin: 12/29/21 21:16 Dose: 10 mg Documented By: OLGA Morphine Sulfate (Morphine Sulfate 2 Mg/Ml Cartridge) 2 mg IVPUSH Q4H PRN; Protocol PRN Reason: Pain, Moderate (Pain Scale 4-6 Multi-Ingred Medicated Throat [place] (Throat [place], Medicated 20 Ml Bottle) 1 spray MUCOUS MEM Q2H PRN PRN Reason: Sore Throat Last Admin: 12/29/21 21:15 Dose: 1 spray Documented By: OLGA Non-Formulary Medication (Glecaprevir-Pibrentasvir [Mavyret]) 3 tab PO DAILY [facility] Pharmacy Consult (Consult Rx Perform Med Rec) 1 each MISCELLANE ONCE PRN PRN Reason: Consult order Salmeterol Xinafoate (Salmeterol Xinafoate 50 Mcg Blst.W.Dev) 1 puff INHALE RBID [facility] Last Admin: 12/30/21 08:14 Dose: 1 puff Documented By: BI Simethicone (Simethicone 80 Mg Tab.Chew) 80 mg PO QIDWMHS [facility] Last Admin: 12/30/21 09:18 Dose: 80 mg Documented By: LONNIE Sodium Chloride (0.9 % Sodium Chloride Flush 3 Ml Syringe) 3 ml IVFLUSH QSHIFT [facility] Last Admin: 12/30/21 09:11 Dose: 3 ml Documented By: LONNIE Labs CBC & Chem 7: 12/29/21 02:45 12/29/21 02:45 Labs: Laboratory Results - last 24 hr 12/29/21 12/29/21 12/30/21 16:38 21:00 07:19 POC Glucose 94 179 H 129 H 12/30/21 11:29 POC Glucose 376 H* Assessment and Plan (1) Asthmatic bronchitis with acute exacerbation: Status: Acute Plan 51 year old women well known to [facility] [place] for hx of severe reactive airway disease, resp failure admitted initially due to resp failure d/t hypoxia and hypercarbia. She was initially admitted to medical floor and then subsequently tx to ICU for hypercarbia and intubation. She is on chronic steroids, and uses Bipap at home even during the day Acute on chronic resp failure secondary to COPD/asthma with hypercarbia and hypoxia extubated on 12/29/21 continue Solumedrol Albuterol nebs scheduled bipap at bedside Supplemental oxygen Sore throat Secondary to intubation Chloraseptic spray Supportive care Leukocytosis secondary to chronic steroid use Diabetes type 2 sliding scale, ada diet, lantus Mental health continue home medications Diabetic neuropathy, unspecified Continue gabapentin Hypertension continue hydralazine History of substance abuse Continue methadone DVT prophylaxis with Heparin Attending Dr. Alejo Full code Continued hospitalization for tx of resp failure requiring close monitoring, IV steroids and BIpap. High risk for decompensation Quality Stroke Does the patient have a stroke diagnosis?: No VTE Prior VTE?: No VTE Risk Level:: Medical - moderate - high VTE Device Contraindication: Treatment Not Indicated VTE Drug Contraindication: N/A - Med Ordered
[2021-12-30] MEDS: Insulin Lispro 100 UNIT/ML 3 ML VIAL SUBCUT ×6 (12:21→21:50)
[2021-12-30 15:52] LABS: Glucose, Whole Blood 358 mg/dL (60-115)
[2021-12-30 21:10] LABS: Glucose, Whole Blood 251 mg/dL (60-115)
[2021-12-30] MEDS: Montelukast Sodium 10 MG TABLET PO (21:50)
[2021-12-30] MEDS: Insulin Glargine,Hum.rec.anlog 100 UNIT/ML 10 ML VIAL 45 UNIT SUBCUT (21:51)
[2021-12-31] VITALS (8 sets, daily range): BP systolic 137–161; BP diastolic 83–100; PULSE 84–104; RESP 18–24; TEMP 35.9–36.7; O2SAT 92–96; BMI 34.6
[2021-12-31] MEDS: Heparin Sodium,Porcine 5,000 UNIT/ML VIAL 5000 UNIT SUBCUT ×3 (06:25→22:10)
[2021-12-31] MEDS: methylPREDNISolone Sod Succ 40 MG/ML VIAL IVPUSH ×2 (06:25→18:36)
[2021-12-31 07:20] LABS: Glucose, Whole Blood 273 mg/dL (60-115)
[2021-12-31] MEDS: Insulin Lispro 100 UNIT/ML 3 ML VIAL SUBCUT ×8 (07:35→22:11)
[2021-12-31] MEDS: Salmeterol Xinafoate 50 MCG BLST.W.DEV 1 PUFF INHALE ×2 (07:41→20:05)
[2021-12-31] MEDS: Albuterol/Iprat 2.5/0.5MG 3 ML AMPUL.NEB INHALE ×2 (07:44→17:29)
[2021-12-31] MEDS: Gabapentin 300 MG CAPSULE PO ×2 (08:21→22:12)
[2021-12-31] MEDS: dilTIAZem HCL CD 180 MG CAP.ER.24H 360 MG PO (08:21)
[2021-12-31] MEDS: buPROPion HCL 75 MG TABLET 150 MG PO ×2 (08:21→22:12)
[2021-12-31] MEDS: 0.9 % Sodium Chloride Flush 3 ML SYRINGE IVFLUSH ×3 (08:21→22:13)
[2021-12-31] MEDS: hydrALAZINE HCl 25 MG TABLET PO ×3 (08:22→22:12)
[2021-12-31] MEDS: Simethicone 80 MG TAB.CHEW PO ×4 (08:22→22:12)
[2021-12-31] MEDS: methADONE HCl 20 MG/2 ML ORAL.CONC 50 MG PO (08:22)
--- NOTE | 2021-12-31 10:31 | P.PNIM_ITS ---
Subjective Subjective Date of Service: 12/31/21 Review of Systems Follow up hypoxic resp failure feeling better abd gassiness resolved Physical Exam Vital Signs: Vital Signs: Last Vital Signs Temp 97.9 F 12/31/21 08:31 Pulse 88 12/31/21 07:23 Resp 22 H 12/31/21 07:23 BP 161/95 H 12/31/21 07:23 Pulse Ox 96 12/31/21 07:23 O2 Del Method 12/31/21 07:23 O2 Flow Rate 3 12/31/21 07:23 FiO2 26 12/30/21 19:57 Oxygen Flow Rate 4 12/22/21 16:00 BMI result Body Mass Index 34.6 Appearing in no acute distress, jennings face lung sounds are clear to auscultation heart regular rate rhythm, clear S1, S2 positive bowel sounds, abdomen is soft, nontender, large abdomen neuro patient is alert x3, no focal deficits Objective Data Active Medications Albuterol/Ipratropium (Albuterol/Iprat 2.5/0.5mg 3 Ml Ampul.Neb) 3 ml INHALE RQ4H PRN PRN Reason: Dyspnea Last Admin: 12/31/21 07:44 Dose: 3 ml Documented By: MITESH Budesonide (Budesonide 180 Mcg Aer.Pow.Ba) 1 puff INHALE BID [facility] Last Admin: 12/30/21 20:21 Dose: Not Given Documented By: MARYSOL Non-Admin Reason: See Note Bupropion HCl (Bupropion Hcl 75 Mg Tablet) 150 mg PO BID [facility] Last Admin: 12/31/21 08:21 Dose: 150 mg Documented By: STONEY Dextrose (Dextrose 50 % 25 Gm/50 Ml Syringe) 25 gm IVPUSH Q15M PRN; Protocol PRN Reason: per Hypoglycemia Standing Ord. Dextrose (Dextrose 50 % 25 Gm/50 Ml Syringe) 25 gm IVPUSH Q15M PRN; Protocol PRN Reason: per Hypoglycemia Standing Ord. Dextrose (Dextrose 50 % 25 Gm/50 Ml Syringe) 25 gm IVPUSH Q15M PRN; Protocol PRN Reason: per Hypoglycemia Standing Ord. Diltiazem HCl (Diltiazem Hcl Cd 180 Mg Cap.Er.24h) 360 mg PO DAILY [facility]; Protocol Last Admin: 12/31/21 08:21 Dose: 360 mg Documented By: STONEY Docusate Sodium (Docusate Sodium 100 Mg Capsule) 100 mg PO DAILY PRN PRN Reason: Constipation Gabapentin (Gabapentin 300 Mg Capsule) 300 mg PO BID [facility] Last Admin: 12/31/21 08:21 Dose: 300 mg Documented By: STONEY Glucose (Glucose Gel 15 Gm Gel..Gram.) 15 gm PO Q15M PRN; Protocol PRN Reason: per Hypoglycemia Standing Ord. Glucose (Glucose Gel 15 Gm Gel..Gram.) 15 gm PO Q15M PRN; Protocol PRN Reason: per Hypoglycemia Standing Ord. Glucose (Glucose Gel 15 Gm Gel..Gram.) 15 gm PO Q15M PRN; Protocol PRN Reason: per Hypoglycemia Standing Ord. Heparin Sodium (Porcine) (Heparin Sodium,Porcine 5,000 Unit/Ml Vial) 5,000 unit SUBCUT Q8H [facility] Last Admin: 12/31/21 06:25 Dose: 5,000 unit Documented By: GANESH Hydralazine HCl (Hydralazine Hcl 25 Mg Tablet) 25 mg PO TID [facility]; Protocol Last Admin: 12/31/21 08:22 Dose: 25 mg Documented By: STONEY Insulin Glargine (Insulin Glargine,Hum.Rec.Anlog 100 Unit/Ml 10 Ml Vial) 45 unit SUBCUT BEDTIME [facility] Last Admin: 12/30/21 21:51 Dose: 45 unit Documented By: GANESH Insulin Human Lispro (Insulin Lispro 100 Unit/Ml 3 Ml Vial) 0.1 - 10 unit SUBCUT QIDACHS [facility]; Protocol Last Admin: 12/31/21 07:35 Dose: 6 unit Documented By: STONEY Insulin Human Lispro (Insulin Lispro 100 Unit/Ml 3 Ml Vial) 5 unit SUBCUT QIDACHS [facility] Last Admin: 12/31/21 07:35 Dose: 5 unit Documented By: STONEY Melatonin (Melatonin 3 Mg Tablet) 6 mg PO BEDTIME PRN PRN Reason: insomnia Last Admin: 12/30/21 02:32 Dose: 6 mg Documented By: NEVIN Methadone HCl (Methadone Hcl 20 Mg/2 Ml Oral.Conc) 50 mg PO DAILY [facility] Last Admin: 12/31/21 08:22 Dose: 50 mg Documented By: STONEY Methylprednisolone Sodium Succinate (Methylprednisolone Sod Succ 40 Mg/Ml Vial) 40 mg IVPUSH Q12H [facility] Last Admin: 12/31/21 06:25 Dose: 40 mg Documented By: GANESH Montelukast Sodium (Montelukast Sodium 10 Mg Tablet) 10 mg PO BEDTIME [facility] Last Admin: 12/30/21 21:50 Dose: 10 mg Documented By: GANESH Morphine Sulfate (Morphine Sulfate 2 Mg/Ml Cartridge) 2 mg IVPUSH Q4H PRN; Protocol PRN Reason: Pain, Moderate (Pain Scale 4-6 Multi-Ingred Medicated Throat [place] (Throat [place], Medicated 20 Ml Bottle) 1 spray MUCOUS MEM Q2H PRN PRN Reason: Sore Throat Last Admin: 12/29/21 21:15 Dose: 1 spray Documented By: OLGA Pharmacy Consult (Consult Rx Perform Med Rec) 1 each MISCELLANE ONCE PRN PRN Reason: Consult order Salmeterol Xinafoate (Salmeterol Xinafoate 50 Mcg Blst.W.Dev) 1 puff INHALE RBID [facility] Last Admin: 12/31/21 07:41 Dose: 1 puff Documented By: MITESH Simethicone (Simethicone 80 Mg Tab.Chew) 80 mg PO QIDWMHS [facility] Last Admin: 12/31/21 08:22 Dose: 80 mg Documented By: STONEY Sodium Chloride (0.9 % Sodium Chloride Flush 3 Ml Syringe) 3 ml IVFLUSH QSHIFT [facility] Last Admin: 12/31/21 08:21 Dose: 3 ml Documented By: STONEY Labs CBC & Chem 7: 12/29/21 02:45 12/29/21 02:45 Labs: Laboratory Results - last 24 hr 12/30/21 12/30/21 12/30/21 11:29 15:23 21:06 POC Glucose 376 H* 358 H* 251 H 12/31/21 07:14 POC Glucose 273 H Assessment and Plan (1) Asthmatic bronchitis with acute exacerbation: Status: Acute Plan 51 year old women well known to [facility] for hx of severe reactive airway disease, resp failure admitted initially due to resp failure d/t hypoxia and hypercarbia. She was initially admitted to medical floor and then subsequently tx to ICU for hypercarbia and intubation. She is on chronic steroids, and uses Bipap at home even during the day Acute on chronic resp failure secondary to COPD/asthma with hypercarbia and hypoxia, RSV positive admission extubated on 12/29/21 Continue IV Solu-Medrol and scheduled albuterol DuoNebs bipap at bedside Supplemental oxygen Sore throat Secondary to intubation Chloraseptic spray Supportive care Leukocytosis secondary to chronic steroid use Diabetes type 2 sliding scale, ada diet, lantus Mental health continue home medications Diabetic neuropathy, unspecified Continue gabapentin Hypertension continue hydralazine History of substance abuse Continue methadone DVT prophylaxis with Heparin Attending Dr. Jones Full code Continued hospitalization for tx of resp failure requiring close monitoring, IV steroids and BIpap. High risk for decompensation Quality Stroke Does the patient have a stroke diagnosis?: No VTE Prior VTE?: No VTE Risk Level:: Medical - moderate - high VTE Device Contraindication: Treatment Not Indicated VTE Drug Contraindication: N/A - Med Ordered
[2021-12-31 11:05] LABS: Glucose, Whole Blood 289 mg/dL (60-115)
--- NOTE | 2021-12-31 13:05 | P.CDIC_ITS ---
CDI Concurrent Query Documentation Clarification: PHYSICIAN'S DOCUMENTATION REQUEST Date of Query: 12/31/21 130 Patient Name: Anju Larios Admit Date: 12/21/21 Dear Doctor, A review of the medical record indicates additional documentation may be needed. Please review below and update the documentation accordingly. Clinical Indicators: Is there a diagnosis that correlates with these lab findings below: Risk Factors/Clinical Indicators/Treatments LABS: -POC 12/30: 376 -POC 12/31: 289 Please clarify the following regarding Diabetes Mellitus (DM): * Hyperglycemia * No complications of DM * Other complication ? please specify * Unable to determine Use of terms such as suspected, likely, concern for, or probable (associated with a specific diagnosis that is being evaluated, monitored, or treated as if it exists) are acceptable and can be coded in the inpatient setting, when documented at the time of discharge. Thank you, Yessenia Vasquez MS, RN, CCRN Extension: [phone] Please use your independent medical judgment in providing your response. THIS QUERY IS PART OF THE PERMANENT MEDICAL RECORD Other Diagnosis: hyperglycemia
--- NOTE | 2021-12-31 13:30 | MHC.CLN ---
F/U PT TRANSFERRED TO MEDICAL FLOOR PO INTAKE 100% X 3 MEALS DIET RX: 2200DM-APPROPRIATE RECOMMEND 1800DM 2GM NA DIET R/T DM AND HX CHF MONITOR PO INTAKE CLOSELY
[2021-12-31 16:27] LABS: Glucose, Whole Blood 290 mg/dL (60-115)
[2021-12-31 19:53] LABS: Glucose, Whole Blood 327 mg/dL (60-115)
[2021-12-31] MEDS: Budesonide 180 MCG AER.POW.BA 1 PUFF INHALE (20:05)
[2021-12-31] MEDS: Montelukast Sodium 10 MG TABLET PO (22:11)
[2021-12-31] MEDS: Insulin Glargine,Hum.rec.anlog 100 UNIT/ML 10 ML VIAL 45 UNIT SUBCUT (22:11)
[2021-12-31] MEDS: Melatonin 3 MG TABLET 6 MG PO (22:20)
[2022-01-01] VITALS (12 sets, daily range): BP systolic 137–178; BP diastolic 77–101; PULSE 77–110; RESP 17–24; TEMP 35.9–37.2; O2SAT 90–95; BMI 34.6
[2022-01-01] MEDS: Heparin Sodium,Porcine 5,000 UNIT/ML VIAL 5000 UNIT SUBCUT ×3 (05:48→22:04)
[2022-01-01] MEDS: methylPREDNISolone Sod Succ 40 MG/ML VIAL IVPUSH ×2 (05:48→16:53)
[2022-01-01 06:54] LABS: Anion Gap 17 (12-20); Blood Urea Nitrogen 27 mg/dL (9-16); Calcium 9.8 mg/dL (8.4-10.2); Carbon Dioxide 35 mmol/L (22-29); Chloride 93 mmol/L (96-108); Creatinine Clr Calc Pharmacy 97.1; Estimated Glomerular Filt Rate > 60; Glucose Random 289 mg/dL (60-115); Potassium 4.4 mmol/L (3.3-5.1); Sodium 141 mmol/L (135-145)
[2022-01-01 07:25] LABS: Glucose, Whole Blood 264 mg/dL (60-115)
[2022-01-01] MEDS: Insulin Lispro 100 UNIT/ML 3 ML VIAL SUBCUT ×8 (07:39→20:49)
[2022-01-01] MEDS: 0.9 % Sodium Chloride Flush 3 ML SYRINGE IVFLUSH ×3 (07:40→20:50)
[2022-01-01] MEDS: methADONE HCl 20 MG/2 ML ORAL.CONC 50 MG PO (07:40)
[2022-01-01] MEDS: buPROPion HCL 75 MG TABLET 150 MG PO ×2 (07:41→20:49)
[2022-01-01] MEDS: Gabapentin 300 MG CAPSULE PO ×2 (07:42→20:49)
[2022-01-01] MEDS: hydrALAZINE HCl 25 MG TABLET PO ×3 (07:42→20:49)
[2022-01-01] MEDS: Simethicone 80 MG TAB.CHEW PO ×4 (07:42→20:49)
[2022-01-01] MEDS: dilTIAZem HCL CD 180 MG CAP.ER.24H 360 MG PO (07:42)
[2022-01-01] MEDS: Salmeterol Xinafoate 50 MCG BLST.W.DEV 1 PUFF INHALE ×2 (07:46→23:51)
[2022-01-01] MEDS: Albuterol/Iprat 2.5/0.5MG 3 ML AMPUL.NEB INHALE ×3 (07:46→16:06)
[2022-01-01] MEDS: Budesonide 180 MCG AER.POW.BA 1 PUFF INHALE (07:46)
[2022-01-01 11:04] LABS: Glucose, Whole Blood 272 mg/dL (60-115)
[2022-01-01 11:04] LABS: Glucose, Whole Blood 356 mg/dL (60-115)
--- NOTE | 2022-01-01 11:20 | HO.PM.IMPN ---
Subjective Subjective Date of Service: 01/01/22 Review of Systems Follow up hypoxic resp failure feeling better abd gassiness resolved Physical Exam Vital Signs: Vital Signs: Last Vital Signs Temp 98.9 F 01/01/22 07:18 Pulse 91 01/01/22 10:56 Resp 24 H 01/01/22 10:56 BP 152/80 H 01/01/22 10:56 Pulse Ox 93 01/01/22 10:56 O2 Del Method 01/01/22 10:56 O2 Flow Rate 3 01/01/22 10:56 FiO2 26 12/30/21 19:57 Oxygen Flow Rate 4 12/22/21 16:00 BMI result Body Mass Index 34.6 Appearing in no acute distress lung sounds coarse wheezes heart regular rate rhythm, clear S1, S2 positive bowel sounds, abdomen is soft, nontender neuro patient is alert x3, no focal deficits Objective Data Active Medications Albuterol/Ipratropium (Albuterol/Iprat 2.5/0.5mg 3 Ml Ampul.Neb) 3 ml INHALE RQ4H PRN PRN Reason: Dyspnea Last Admin: 01/01/22 07:46 Dose: 3 ml Documented By: PIO Budesonide (Budesonide 180 Mcg Aer.Pow.Ba) 1 puff INHALE BID [facility] Last Admin: 01/01/22 07:46 Dose: 1 puff Documented By: PIO Bupropion HCl (Bupropion Hcl 75 Mg Tablet) 150 mg PO BID [facility] Last Admin: 12/31/21 22:12 Dose: 150 mg Documented By: CHANI Dextrose (Dextrose 50 % 25 Gm/50 Ml Syringe) 25 gm IVPUSH Q15M PRN; Protocol PRN Reason: per Hypoglycemia Standing Ord. Dextrose (Dextrose 50 % 25 Gm/50 Ml Syringe) 25 gm IVPUSH Q15M PRN; Protocol PRN Reason: per Hypoglycemia Standing Ord. Dextrose (Dextrose 50 % 25 Gm/50 Ml Syringe) 25 gm IVPUSH Q15M PRN; Protocol PRN Reason: per Hypoglycemia Standing Ord. Diltiazem HCl (Diltiazem Hcl Cd 180 Mg Cap.Er.24h) 360 mg PO DAILY [facility]; Protocol Last Admin: 01/01/22 07:42 Dose: 360 mg Documented By: STONEY Docusate Sodium (Docusate Sodium 100 Mg Capsule) 100 mg PO DAILY PRN PRN Reason: Constipation Gabapentin (Gabapentin 300 Mg Capsule) 300 mg PO BID [facility] Last Admin: 01/01/22 07:42 Dose: 300 mg Documented By: STONEY Glucose (Glucose Gel 15 Gm Gel..Gram.) 15 gm PO Q15M PRN; Protocol PRN Reason: per Hypoglycemia Standing Ord. Glucose (Glucose Gel 15 Gm Gel..Gram.) 15 gm PO Q15M PRN; Protocol PRN Reason: per Hypoglycemia Standing Ord. Glucose (Glucose Gel 15 Gm Gel..Gram.) 15 gm PO Q15M PRN; Protocol PRN Reason: per Hypoglycemia Standing Ord. Heparin Sodium (Porcine) (Heparin Sodium,Porcine 5,000 Unit/Ml Vial) 5,000 unit SUBCUT Q8H [facility] Last Admin: 01/01/22 05:48 Dose: 5,000 unit Documented By: CHANI Hydralazine HCl (Hydralazine Hcl 25 Mg Tablet) 25 mg PO TID [facility]; Protocol Last Admin: 01/01/22 07:42 Dose: 25 mg Documented By: STONEY Insulin Glargine (Insulin Glargine,Hum.Rec.Anlog 100 Unit/Ml 10 Ml Vial) 45 unit SUBCUT BEDTIME [facility] Last Admin: 12/31/21 22:11 Dose: 45 unit Documented By: CHANI Insulin Human Lispro (Insulin Lispro 100 Unit/Ml 3 Ml Vial) 0.1 - 10 unit SUBCUT QIDAS [facility]; Protocol Last Admin: 01/01/22 07:39 Dose: 6 unit Documented By: STONEY Insulin Human Lispro (Insulin Lispro 100 Unit/Ml 3 Ml Vial) 5 unit SUBCUT QIDACHS [facility] Last Admin: 01/01/22 07:39 Dose: 5 unit Documented By: STONEY Melatonin (Melatonin 3 Mg Tablet) 6 mg PO BEDTIME PRN PRN Reason: insomnia Last Admin: 12/31/21 22:20 Dose: 6 mg Documented By: CHANI Methadone HCl (Methadone Hcl 20 Mg/2 Ml Oral.Conc) 50 mg PO DAILY [facility] Last Admin: 01/01/22 07:40 Dose: 50 mg Documented By: STONEY Methylprednisolone Sodium Succinate (Methylprednisolone Sod Succ 40 Mg/Ml Vial) 40 mg IVPUSH Q12H [facility] Last Admin: 01/01/22 05:48 Dose: 40 mg Documented By: CHANI Montelukast Sodium (Montelukast Sodium 10 Mg Tablet) 10 mg PO BEDTIME [facility] Last Admin: 12/31/21 22:11 Dose: 10 mg Documented By: CHANI Morphine Sulfate (Morphine Sulfate 2 Mg/Ml Cartridge) 2 mg IVPUSH Q4H PRN; Protocol PRN Reason: Pain, Moderate (Pain Scale 4-6 Multi-Ingred Medicated Throat [place] (Throat [place], Medicated 20 Ml Bottle) 1 spray MUCOUS MEM Q2H PRN PRN Reason: Sore Throat Last Admin: 12/29/21 21:15 Dose: 1 spray Documented By: OLGA Pharmacy Consult (Consult Rx Perform Med Rec) 1 each MISCELLANE ONCE PRN PRN Reason: Consult order Salmeterol Xinafoate (Salmeterol Xinafoate 50 Mcg Blst.W.Dev) 1 puff INHALE RBID [facility] Last Admin: 01/01/22 07:46 Dose: 1 puff Documented By: PIO Simethicone (Simethicone 80 Mg Tab.Chew) 80 mg PO QIDWMHS [facility] Last Admin: 01/01/22 07:42 Dose: 80 mg Documented By: STONEY Sodium Chloride (0.9 % Sodium Chloride Flush 3 Ml Syringe) 3 ml IVFLUSH QSHIFT [facility] Last Admin: 01/01/22 07:40 Dose: 3 ml Documented By: STONEY Labs CBC & Chem 7: 12/29/21 02:45 01/01/22 05:27 Labs: Laboratory Results - last 24 hr 12/31/21 12/31/21 01/01/22 16:21 19:47 05:27 Anion Gap 17 Estim Creat Clear Calc 97.1 Estimated GFR > 60 POC Glucose 290 H 327 H Random Glucose 289 H Calcium 9.8 D 01/01/22 01/01/22 01/01/22 07:15 10:07 10:54 Anion Gap Estim Creat Clear Calc Estimated GFR POC Glucose 264 H 356 H* 272 H Random Glucose Calcium Assessment and Plan (1) Asthmatic bronchitis with acute exacerbation: Status: Acute Plan 51 year old women [place] [facility] [place] reactive airway disease, resp failure admitted initially due to resp failure d/t hypoxia and hypercarbia. She was initially admitted to medical floor and then subsequently tx to ICU for hypercarbia and intubation. She is on chronic steroids, and uses Bipap at home even during the day Acute on chronic resp failure secondary to COPD/asthma with hypercarbia and hypoxia, RSV positive admission extubated on 12/29/21 Continue IV Solu-Medrol and scheduled albuterol DuoNebs bipap at bedside Supplemental oxygen Sore throat Secondary to intubation Chloraseptic spray Supportive care Leukocytosis secondary to chronic steroid use Diabetes type 2 sliding scale, ada diet, lantus Mental health continue home medications Diabetic neuropathy, unspecified Continue gabapentin Hypertension continue hydralazine History of substance abuse Continue methadone DVT prophylaxis with Heparin Attending Dr. Jones Full code DISPO possible discharge tommorrow if medically cleared Continued hospitalization for tx of resp failure requiring close monitoring, IV steroids and BIpap. High risk for decompensation Quality Stroke Does the patient have a stroke diagnosis?: No VTE Prior VTE?: No VTE Risk Level:: Medical - moderate - high VTE Device Contraindication: Treatment Not Indicated VTE Drug Contraindication: N/A - Med Ordered
[2022-01-01 16:29] LABS: Glucose, Whole Blood 232 mg/dL (60-115)
[2022-01-01 20:38] LABS: Glucose, Whole Blood 391 mg/dL (60-115)
[2022-01-01 20:38] LABS: Glucose, Whole Blood 389 mg/dL (60-115)
[2022-01-01] MEDS: Insulin Glargine,Hum.rec.anlog 100 UNIT/ML 10 ML VIAL 45 UNIT SUBCUT (20:46)
[2022-01-01] MEDS: Montelukast Sodium 10 MG TABLET PO (20:49)
[2022-01-01 22:10] LABS: Glucose, Whole Blood 346 mg/dL (60-115)
[2022-01-02] VITALS (12 sets, daily range): BP systolic 135–172; BP diastolic 76–103; PULSE 83–102; RESP 15–20; TEMP 36.1–37.4; O2SAT 91–97
[2022-01-02 00:27] LABS: Glucose, Whole Blood 341 mg/dL (60-115)
--- NOTE | 2022-01-02 00:28 | PM.EVENT ---
Event Note Date of Service: 01/02/22 Event Note: pt hyperglyceiminc given an extra 15 units of lispro
[2022-01-02] MEDS: Insulin Lispro 100 UNIT/ML 3 ML VIAL 15 UNIT SUBCUT (00:37)
[2022-01-02] MEDS: methylPREDNISolone Sod Succ 40 MG/ML VIAL IVPUSH ×2 (05:04→17:25)
[2022-01-02] MEDS: Heparin Sodium,Porcine 5,000 UNIT/ML VIAL 5000 UNIT SUBCUT ×3 (06:00→21:53)
[2022-01-02 07:33] LABS: Glucose, Whole Blood 73 mg/dL (60-115)
[2022-01-02 07:33] LABS: Glucose, Whole Blood 249 mg/dL (60-115)
[2022-01-02] MEDS: Salmeterol Xinafoate 50 MCG BLST.W.DEV 1 PUFF INHALE ×2 (07:39→19:25)
[2022-01-02] MEDS: Albuterol/Iprat 2.5/0.5MG 3 ML AMPUL.NEB INHALE ×3 (07:39→15:54)
[2022-01-02] MEDS: Budesonide 180 MCG AER.POW.BA 1 PUFF INHALE (07:40)
[2022-01-02] MEDS: methADONE HCl 20 MG/2 ML ORAL.CONC 50 MG PO (08:49)
[2022-01-02] MEDS: Simethicone 80 MG TAB.CHEW PO ×4 (08:51→21:53)
[2022-01-02] MEDS: hydrALAZINE HCl 25 MG TABLET PO ×3 (08:51→21:38)
[2022-01-02] MEDS: dilTIAZem HCL CD 180 MG CAP.ER.24H 360 MG PO (08:51)
[2022-01-02] MEDS: Gabapentin 300 MG CAPSULE PO ×2 (08:51→21:38)
[2022-01-02] MEDS: buPROPion HCL 75 MG TABLET 150 MG PO ×2 (08:51→21:38)
[2022-01-02] MEDS: Insulin Lispro 100 UNIT/ML 3 ML VIAL SUBCUT ×4 (08:52→21:39)
[2022-01-02] MEDS: 0.9 % Sodium Chloride Flush 3 ML SYRINGE IVFLUSH ×2 (08:53→15:02)
[2022-01-02 11:37] LABS: Glucose, Whole Blood 131 mg/dL (60-115)
--- NOTE | 2022-01-02 12:24 | P.PNIM_ITS ---
Subjective Subjective Date of Service: 01/02/22 Interval History: patient has been seen today. Reports he still very short of breath. Spoke to the RN. Patient has been using overnight BiPAP. RN mentioned that patient has central line -also has a working peripheral access. Plan to remove central line today. Physical Exam Vital Signs: Vital Signs: Last Vital Signs Temp 99.3 F 01/02/22 07:15 Pulse 88 01/02/22 11:51 Resp 18 01/02/22 11:51 BP 154/91 H 01/02/22 07:15 Pulse Ox 94 01/02/22 07:15 O2 Del Method 01/02/22 07:15 O2 Flow Rate 3 01/02/22 07:15 FiO2 26 12/30/21 19:57 Oxygen Flow Rate 4 12/22/21 16:00 BMI result Body Mass Index 34.6 Gen: Appears be in no acute distress . Patient on supplemental oxygen. Speaks in full sentences. HEENT: NCAT, Moist mucosa. Pulmonary: Diminished breath sounds CVS: Normal S1-S2 Abdomen: BS+, Soft, Nontender Extremities: Warm well perfused Neuro: Alert and awake. grossly nonfocal Objective Data Active Medications Albuterol/Ipratropium (Albuterol/Iprat 2.5/0.5mg 3 Ml Ampul.Neb) 3 ml INHALE RQ4H PRN PRN Reason: Dyspnea Last Admin: 01/02/22 11:45 Dose: 3 ml Documented By: ASHLEY Budesonide (Budesonide 180 Mcg Aer.Pow.Ba) 1 puff INHALE BID [facility] Last Admin: 01/02/22 07:40 Dose: 1 puff Documented By: ASHLEY Bupropion HCl (Bupropion Hcl 75 Mg Tablet) 150 mg PO BID [facility] Last Admin: 01/02/22 08:51 Dose: 150 mg Documented By: DARCY Dextrose (Dextrose 50 % 25 Gm/50 Ml Syringe) 25 gm IVPUSH Q15M PRN; Protocol PRN Reason: per Hypoglycemia Standing Ord. Dextrose (Dextrose 50 % 25 Gm/50 Ml Syringe) 25 gm IVPUSH Q15M PRN; Protocol PRN Reason: per Hypoglycemia Standing Ord. Dextrose (Dextrose 50 % 25 Gm/50 Ml Syringe) 25 gm IVPUSH Q15M PRN; Protocol PRN Reason: per Hypoglycemia Standing Ord. Diltiazem HCl (Diltiazem Hcl Cd 180 Mg Cap.Er.24h) 360 mg PO DAILY [facility]; Protocol Last Admin: 01/02/22 08:51 Dose: 360 mg Documented By: DARCY Docusate Sodium (Docusate Sodium 100 Mg Capsule) 100 mg PO DAILY PRN PRN Reason: Constipation Gabapentin (Gabapentin 300 Mg Capsule) 300 mg PO BID [facility] Last Admin: 01/02/22 08:51 Dose: 300 mg Documented By: DARCY Glucose (Glucose Gel 15 Gm Gel..Gram.) 15 gm PO Q15M PRN; Protocol PRN Reason: per Hypoglycemia Standing Ord. Glucose (Glucose Gel 15 Gm Gel..Gram.) 15 gm PO Q15M PRN; Protocol PRN Reason: per Hypoglycemia Standing Ord. Glucose (Glucose Gel 15 Gm Gel..Gram.) 15 gm PO Q15M PRN; Protocol PRN Reason: per Hypoglycemia Standing Ord. Heparin Sodium (Porcine) (Heparin Sodium,Porcine 5,000 Unit/Ml Vial) 5,000 unit SUBCUT Q8H [facility] Last Admin: 01/02/22 06:00 Dose: 5,000 unit Documented By: CHANI Hydralazine HCl (Hydralazine Hcl 25 Mg Tablet) 25 mg PO TID [facility]; Protocol Last Admin: 01/02/22 08:51 Dose: 25 mg Documented By: DARCY Insulin Glargine (Insulin Glargine,Hum.Rec.Anlog 100 Unit/Ml 10 Ml Vial) 45 unit SUBCUT BEDTIME [facility] Last Admin: 01/01/22 20:46 Dose: 45 unit Documented By: CHANI Insulin Human Lispro (Insulin Lispro 100 Unit/Ml 3 Ml Vial) 0.1 - 10 unit SUBCUT QIDACHS [facility]; Protocol Last Admin: 01/02/22 11:50 Dose: Not Given Documented By: NAYE Non-Admin Reason: No Insulin Coverage Insulin Human Lispro (Insulin Lispro 100 Unit/Ml 3 Ml Vial) 5 unit SUBCUT QIDACHS [facility] Last Admin: 01/02/22 12:22 Dose: 5 unit Documented By: NAYE Melatonin (Melatonin 3 Mg Tablet) 6 mg PO BEDTIME PRN PRN Reason: insomnia Last Admin: 12/31/21 22:20 Dose: 6 mg Documented By: CHANI Methadone HCl (Methadone Hcl 20 Mg/2 Ml Oral.Conc) 50 mg PO DAILY [facility] Last Admin: 01/02/22 08:49 Dose: 50 mg Documented By: DARCY Methylprednisolone Sodium Succinate (Methylprednisolone Sod Succ 40 Mg/Ml Vial) 40 mg IVPUSH Q12H [facility] Last Admin: 01/02/22 05:04 Dose: 40 mg Documented By: CHANI Montelukast Sodium (Montelukast Sodium 10 Mg Tablet) 10 mg PO BEDTIME [facility] Last Admin: 01/01/22 20:49 Dose: 10 mg Documented By: CHANI Morphine Sulfate (Morphine Sulfate 2 Mg/Ml Cartridge) 2 mg IVPUSH Q4H PRN; Protocol PRN Reason: Pain, Moderate (Pain Scale 4-6 Multi-Ingred Medicated Throat [place] (Throat [place], Medicated 20 Ml Bottle) 1 spray MUCOUS MEM Q2H PRN PRN Reason: Sore Throat Last Admin: 12/29/21 21:15 Dose: 1 spray Documented By: OLGA Pharmacy Consult (Consult Rx Perform Med Rec) 1 each MISCELLANE ONCE PRN PRN Reason: Consult order Salmeterol Xinafoate (Salmeterol Xinafoate 50 Mcg Blst.W.Dev) 1 puff INHALE RBID [facility] Last Admin: 01/02/22 07:39 Dose: 1 puff Documented By: ASHLEY Simethicone (Simethicone 80 Mg Tab.Chew) 80 mg PO QIDWMHS [facility] Last Admin: 01/02/22 12:22 Dose: 80 mg Documented By: NAYE Sodium Chloride (0.9 % Sodium Chloride Flush 3 Ml Syringe) 3 ml IVFLUSH QSHIFT [facility] Last Admin: 01/02/22 08:53 Dose: 3 ml Documented By: DARCY Labs CBC & Chem 7: 12/29/21 02:45 01/01/22 05:27 Labs: Laboratory Results - last 24 hr 01/01/22 01/01/22 01/01/22 16:25 20:10 20:33 POC Glucose 232 H 389 H* 391 H* 01/01/22 01/02/22 01/02/22 22:06 00:22 01:14 POC Glucose 346 H 341 H 249 H 01/02/22 01/02/22 07:11 11:08 POC Glucose 73 131 H Assessment and Plan (1) Asthmatic bronchitis with acute exacerbation: Status: Acute Plan 51-year-old female with a past medical history of hypertension, hyperlipidemia, diabetes,asthma/COPD, chronic respiratory failure on 2.5 L of home oxygen, CHF, pulmonary nodule, obesity presented to the hospital with a chief complaint of shortness of breath. Noted to be in acute asthma/ COPD exacerbation, requiring BiPAP initially in the ER, has patient is status mildly improved, patient was admitted to the medical floors. Patient had RSV positive. Patient's hospital course complicated by acute respiratory failure requiring intubation, transferred to the ICU. as a respiratory status improved, patient was extubated on 12/29/2021, subsequent transfer to the medical floors for further management. Acute hypoxic/ hypercapnic respiratory failure: In the setting of asthma / COPD exacerbation/ RSV positive. Extruded on . Currently on supplemental oxygen. Patient has been on bedtime BiPAP given her history of CHITO. Continued on Solu-Medrol IV b.i.d.. Patient still has diminished breath sounds bilaterally. Pulmonology follow-up Continue DuoNeb standing and p.r.n. Supplemental oxygen with goal oxygen saturation 93%. Will keep the pt on azithromycin. (QTC 448) chronic medical conditions: History of diabetes: Insulin sliding scale plus Lantus. Patient had intermittent hyperglycemia-likely in setting of steroids. Steroids have been titrated down. History of anxiety / depression: Continue home medications History of neuropathy: Continue home gabapentin History of hypertension: Continue hydralazine History of opiate dependence: Patient on methadone. DVT prophylaxis: Subcu heparin Code status: Full code Quality Stroke Does the patient have a stroke diagnosis?: No VTE Prior VTE?: No VTE Risk Level:: Medical - moderate - high VTE Device Contraindication: Treatment Not Indicated VTE Drug Contraindication: N/A - Med Ordered
--- NOTE | 2022-01-02 13:39 | MHC.CM.PN ---
Per ROUNDS discussion, Patient is not yet medically cleared for dc (IV Solu Medrol); Home/resume services is the goal and CM will continue to follow.
[2022-01-02] MEDS: Azithromycin 250 MG TABLET PO (15:01)
[2022-01-02 16:33] LABS: Glucose, Whole Blood 125 mg/dL (60-115)
[2022-01-02 20:20] LABS: Glucose, Whole Blood 241 mg/dL (60-115)
[2022-01-02] MEDS: Insulin Glargine,Hum.rec.anlog 100 UNIT/ML 10 ML VIAL 45 UNIT SUBCUT (21:38)
[2022-01-02] MEDS: Montelukast Sodium 10 MG TABLET PO (21:53)
[2022-01-03] VITALS (10 sets, daily range): BP systolic 133–182; BP diastolic 82–111; PULSE 89–118; RESP 14–26; TEMP 35.3–37.1; O2SAT 88–98
[2022-01-03] MEDS: 0.9 % Sodium Chloride Flush 3 ML SYRINGE IVFLUSH ×3 (00:19→16:50)
[2022-01-03] MEDS: Heparin Sodium,Porcine 5,000 UNIT/ML VIAL 5000 UNIT SUBCUT ×2 (06:24→13:48)
[2022-01-03] MEDS: methylPREDNISolone Sod Succ 40 MG/ML VIAL IVPUSH (06:25)
[2022-01-03 07:50] LABS: Glucose, Whole Blood 268 mg/dL (60-115)
[2022-01-03] MEDS: Salmeterol Xinafoate 50 MCG BLST.W.DEV 1 PUFF INHALE ×2 (07:52→19:55)
[2022-01-03 09:01] LABS: Basophils Absolute Auto 0.1 X10*3/uL (0.0-0.2); Basophils Percent Auto 0.4 % (0-2); Hematocrit 41.1 % (37.0-47.0); Imm Gran Abs Auto 0.38 X10*3/uL (0.00-0.03); Lymphocytes Absolute Auto 0.5 X10*3/uL (1.2-4.9); Lymphocytes Percent Auto 2.4 % (20-40); MANUAL DIFF FLAG SCAN; Mean Corpuscular HGB Conc 31.6 g/dl (31.0-35.0); Mean Corpuscular Hemoglobin 29.3 pg (27.0-33.0); Mean Corpuscular Volume 92.6 fL (80.0-98.0); Mean Platelet Volume 10.5 fL (9.4-12.3); Monocytes Absolute Auto 0.9 X10*3/uL (0.1-1.2); Monocytes Percent Auto 4.6 % (2-11); Neutrophils Absolute Auto 17.4 x10*3/uL (2.0-8.3); Neutrophils Percent Auto 90.6 % (45-73); Platelet Count 205 X10*3/uL (160-400); Red Blood Count 4.44 X10*6/uL (4.20-5.50); Red Cell Distribution Width 13.2 % (11.0-16.0); SCAN SMEAR FLAG 1; White Blood Count 19.2 X10*3/uL (4.8-10.8)
[2022-01-03] MEDS: Simethicone 80 MG TAB.CHEW PO ×4 (09:05→19:55)
[2022-01-03] MEDS: Gabapentin 300 MG CAPSULE PO ×2 (09:05→19:55)
[2022-01-03] MEDS: buPROPion HCL 75 MG TABLET 150 MG PO ×2 (09:05→19:54)
[2022-01-03] MEDS: hydrALAZINE HCl 25 MG TABLET PO ×3 (09:06→19:54)
[2022-01-03] MEDS: dilTIAZem HCL CD 180 MG CAP.ER.24H 360 MG PO (09:06)
[2022-01-03] MEDS: Insulin Lispro 100 UNIT/ML 3 ML VIAL SUBCUT ×8 (09:06→21:51)
[2022-01-03] MEDS: methADONE HCl 20 MG/2 ML ORAL.CONC 50 MG PO (09:07)
[2022-01-03 09:33] LABS: Anion Gap 20 (12-20); Blood Urea Nitrogen 19 mg/dL (9-16); Calcium 9.1 mg/dL (8.4-10.2); Carbon Dioxide 26 mmol/L (22-29); Chloride 95 mmol/L (96-108); Creatinine Clr Calc Pharmacy 116.1; Estimated Glomerular Filt Rate > 60; Glucose Random 262 mg/dL (60-115); Potassium 5.1 mmol/L (3.3-5.1); Sodium 136 mmol/L (135-145)
[2022-01-03 09:49] LABS: SLIDE REVIEW VERIFIED
[2022-01-03 11:37] LABS: Glucose, Whole Blood 286 mg/dL (60-115)
[2022-01-03] MEDS: Albuterol/Iprat 2.5/0.5MG 3 ML AMPUL.NEB INHALE ×2 (12:03→21:29)
[2022-01-03] MEDS: Azithromycin 250 MG TABLET PO (12:07)
--- NOTE | 2022-01-03 12:17 | P.PNIM_ITS ---
Subjective Subjective Date of Service: 01/03/22 Physical Exam Vital Signs: Vital Signs: Last Vital Signs Temp 97.8 F 01/03/22 11:28 Pulse 118 H 01/03/22 12:07 Resp 26 H 01/03/22 12:07 BP 137/86 01/03/22 11:28 Pulse Ox 94 01/03/22 11:28 O2 Del Method 01/03/22 11:28 O2 Flow Rate 3 01/03/22 11:28 FiO2 26 01/03/22 08:00 Oxygen Flow Rate 4 12/22/21 16:00 BMI result Body Mass Index 34.6 Gen: Appears be in no acute distress. On supplemental oxygen. Able to speak in full sentences. Patient sitting on the bed. HEENT: NCAT, Moist mucosa. Pulmonary: Diminished breath sounds CVS: Normal S1-S2 Abdomen: BS+, Soft, Nontender Extremities: Warm well perfused Neuro: Alert and awake. Objective Data Active Medications Albuterol/Ipratropium (Albuterol/Iprat 2.5/0.5mg 3 Ml Ampul.Neb) 3 ml INHALE R Q4H PRN PRN Reason: Dyspnea Last Admin: 01/03/22 12:03 Dose: 3 ml Documented By: BI Azithromycin (Azithromycin 250 Mg Tablet) 250 mg PO Q24H [facility] Last Admin: 01/03/22 12:07 Dose: 250 mg Documented By: ALICIA Budesonide (Budesonide 180 Mcg Aer.Pow.Ba) 1 puff INHALE BID [facility] Last Admin: 01/02/22 07:40 Dose: 1 puff Documented By: ASHLEY Bupropion HCl (Bupropion Hcl 75 Mg Tablet) 150 mg PO BID [facility] Last Admin: 01/03/22 09:05 Dose: 150 mg Documented By: ALICIA Dextrose (Dextrose 50 % 25 Gm/50 Ml Syringe) 25 gm IVPUSH Q15M PRN; Protocol PRN Reason: per Hypoglycemia Standing Ord. Dextrose (Dextrose 50 % 25 Gm/50 Ml Syringe) 25 gm IVPUSH Q15M PRN; Protocol PRN Reason: per Hypoglycemia Standing Ord. Dextrose (Dextrose 50 % 25 Gm/50 Ml Syringe) 25 gm IVPUSH Q15M PRN; Protocol PRN Reason: per Hypoglycemia Standing Ord. Diltiazem HCl (Diltiazem Hcl Cd 180 Mg Cap.Er.24h) 360 mg PO DAILY [facility]; Protocol Last Admin: 01/03/22 09:06 Dose: 360 mg Documented By: ALICIA Docusate Sodium (Docusate Sodium 100 Mg Capsule) 100 mg PO DAILY PRN PRN Reason: Constipation Gabapentin (Gabapentin 300 Mg Capsule) 300 mg PO BID [facility] Last Admin: 01/03/22 09:05 Dose: 300 mg Documented By: ALICIA Glucose (Glucose Gel 15 Gm Gel..Gram.) 15 gm PO Q15M PRN; Protocol PRN Reason: per Hypoglycemia Standing Ord. Glucose (Glucose Gel 15 Gm Gel..Gram.) 15 gm PO Q15M PRN; Protocol PRN Reason: per Hypoglycemia Standing Ord. Glucose (Glucose Gel 15 Gm Gel..Gram.) 15 gm PO Q15M PRN; Protocol PRN Reason: per Hypoglycemia Standing Ord. Heparin Sodium (Porcine) (Heparin Sodium,Porcine 5,000 Unit/Ml Vial) 5,000 unit SUBCUT Q8H [facility] Last Admin: 01/03/22 06:24 Dose: 5,000 unit Documented By: THADDEUS Hydralazine HCl (Hydralazine Hcl 25 Mg Tablet) 25 mg PO TID [facility]; Protocol Last Admin: 01/03/22 09:06 Dose: 25 mg Documented By: ALICIA Insulin Glargine (Insulin Glargine,Hum.Rec.Anlog 100 Unit/Ml 10 Ml Vial) 45 unit SUBCUT BEDTIME [facility] Last Admin: 01/02/22 21:38 Dose: 45 unit Documented By: NAYE Insulin Human Lispro (Insulin Lispro 100 Unit/Ml 3 Ml Vial) 0.1 - 10 unit [place] BCUT QIDAS [facility]; Protocol Last Admin: 01/03/22 12:08 Dose: 6 unit Documented By: ALICIA Insulin Human Lispro (Insulin Lispro 100 Unit/Ml 3 [facility]) [facility] Last Admin: 01/03/22 12:08 Dose: 5 unit Documented By: ALICIA Melatonin (Melatonin 3 Mg Tablet) 6 mg PO BEDTIME PRN PRN Reason: insomnia Last Admin: 12/31/21 22:20 Dose: 6 mg Documented By: HO.FOSTEKR Methadone HCl (Methadone Hcl 20 Mg/2 Ml Oral.Conc) 50 mg PO DAILY [facility] Last Admin: 01/03/22 09:07 Dose: 50 mg Documented By: ALICIA Methylprednisolone Sodium Succinate (Methylprednisolone Sod Succ 40 Mg/Ml Vial) 40 mg IVPUSH Q12H [facility] Last Admin: 01/03/22 06:25 Dose: 40 mg Documented By: THADDEUS Montelukast Sodium (Montelukast Sodium 10 Mg Tablet) 10 mg PO BEDTIME [facility] Last Admin: 01/02/22 21:53 Dose: 10 mg Documented By: NAYE Morphine Sulfate (Morphine Sulfate 2 Mg/Ml Cartridge) 2 mg IVPUSH Q4H PRN; Protocol PRN Reason: Pain, Moderate (Pain Scale 4-6 Multi-Ingred Medicated Throat [place] (Throat [place], Medicated 20 Ml Bottle) 1 spray MUCOUS MEM Q2H PRN PRN Reason: Sore Throat Last Admin: 12/29/21 21:15 Dose: 1 spray Documented By: OLGA Pharmacy Consult (Consult Rx Perform Med Rec) 1 each MISCELLANE ONCE PRN PRN Reason: Consult order Salmeterol Xinafoate (Salmeterol Xinafoate 50 Mcg Blst.W.Dev) 1 puff INHALE RBID [facility] Last Admin: 01/03/22 07:52 Dose: 1 puff Documented By: BI Simethicone (Simethicone 80 Mg Tab.Chew) 80 mg PO QIDWMHS [facility] Last Admin: 01/03/22 12:07 Dose: 80 mg Documented By: ALICIA Sodium Chloride (0.9 % Sodium Chloride Flush 3 Ml Syringe) 3 ml IVFLUSH QSHIFT [facility] Last Admin: 01/03/22 09:12 Dose: 3 ml Documented By: ALICIA Labs CBC & Chem 7: 01/03/22 08:45 01/03/22 08:45 Labs: Laboratory Results - last 24 hr 01/02/22 01/02/22 01/03/22 16:19 20:07 07:43 MCV MCH MCHC RDW Plt Count MPV Immature Gran % (Auto) Neut % (Auto) Lymph % (Auto) [place] % (Auto) Eos % (Auto) Baso % (Auto) Lymph # (Auto) [place] # (Auto) Eos # (Auto) Baso # (Auto) Abs Immat Gran (auto) Absolute Neuts (auto) Absolute Nucleated RBC Nucleated RBC % (auto) Smear Tech's Comments Anion Gap Estim Creat Clear Calc Estimated GFR POC Glucose 125 H 241 H 268 H Random Glucose Calcium 01/03/22 01/03/22 01/03/22 08:45 08:45 11:29 MCV 92.6 MCH 29.3 MCHC 31.6 RDW 13.2 Plt Count 205 MPV 10.5 Immature Gran % (Auto) 2.0 H Neut % (Auto) 90.6 H Lymph % (Auto) 2.4 L [place] % (Auto) 4.6 Eos % (Auto) 0.0 Baso % (Auto) 0.4 Lymph # (Auto) 0.5 L [place] # (Auto) 0.9 Eos # (Auto) 0.0 Baso # (Auto) 0.1 Abs Immat Gran (auto) 0.38 H Absolute Neuts (auto) 17.4 H Absolute Nucleated RBC 0.000 Nucleated RBC % (auto) 0.0 Smear Tech's Comments VERIFIED Anion Gap 20 Estim Creat Clear Calc 116.1 Estimated GFR > 60 POC Glucose 286 H Random Glucose 262 H Calcium 9.1 D Assessment and Plan (1) Asthmatic bronchitis with acute exacerbation: Status: Acute Plan 51-year-old female with a past medical history of? hypertension, hyperlipidemia, diabetes,asthma/COPD, chronic respiratory failure on 2.5 L of home oxygen, CHF, pulmonary nodule, obesity presented to the hospital with a chief complaint of shortness of breath.? Noted to be in acute asthma/ COPD exacerbation, requiring BiPAP initially in the ER, has patient is status mildly improved, patient was admitted to the medical floors.? Patient had RSV positive.? Patient's hospital course complicated by acute respiratory failure requiring intubation, transferred to the ICU. as a respiratory status improved, patient was extubated on 12/29/2021, subsequent transfer to the medical floors for further management. Acute hypoxic/ hypercapnic respiratory failure:? In the setting of asthma / COPD exacerbation/ RSV positive.? Extruded on .? Currently on supplemental oxygen. Patient has been on bedtime BiPAP given her history of CHITO. Continued on Solu-Medrol IV b.i.d.. Patient still has diminished breath sounds bilaterally.? Pulmonology follow-up Continue DuoNeb standing and p.r.n. Supplemental oxygen with goal oxygen saturation 93%. Will keep the pt on azithromycin. (QTC 448) 01/03: Patient is still tachycardic and mildly tachypneic. Still diminished breath sounds. Continue current management. Pending further input from pulmonology. ?chronic medical conditions: History of diabetes:? Insulin sliding scale plus Lantus.? Patient had intermittent hyperglycemia-likely in setting of steroids.? History of anxiety / depression: Continue home medications History of neuropathy: Continue home gabapentin History of hypertension: Continue hydralazine History of opiate dependence:? Patient on methadone. ? DVT prophylaxis:? Subcu heparin Code status:? Full code Quality Stroke Does the patient have a stroke diagnosis?: No VTE Prior VTE?: No VTE Risk Level:: Medical - moderate - high VTE Device Contraindication: Treatment Not Indicated VTE Drug Contraindication: N/A - Med Ordered
[2022-01-03 16:12] LABS: Glucose, Whole Blood 221 mg/dL (60-115)
--- NOTE | 2022-01-03 16:18 | P.PNPL_ITS ---
Subjective Subjective Date of Service: 01/03/22 Interval history: Improving slowly, though now with heart failure component. Objective Data Labs CBC & Chem 7: 01/03/22 08:45 01/03/22 08:45 Labs: Laboratory Results - last 24 hr 01/02/22 01/02/22 01/03/22 16:19 20:07 07:43 WBC RBC Hgb Hct MCV MCH MCHC RDW Plt Count MPV Immature Gran % (Auto) Neut % (Auto) Lymph % (Auto) [place] % (Auto) Eos % (Auto) Baso % (Auto) Lymph # (Auto) [place] # (Auto) Eos # (Auto) Baso # (Auto) Abs Immat Gran (auto) Absolute Neuts (auto) Absolute Nucleated RBC Nucleated RBC % (auto) Smear Tech's Comments Sodium Potassium Chloride Carbon Dioxide Anion Gap BUN Creatinine Estim Creat Clear Calc Estimated GFR POC Glucose 125 H 241 H 268 H Random Glucose Calcium 01/03/22 01/03/22 01/03/22 08:45 08:45 11:29 WBC 19.2 H RBC 4.44 Hgb 13.0 Hct 41.1 MCV 92.6 MCH 29.3 MCHC 31.6 RDW 13.2 Plt Count 205 MPV 10.5 Immature Gran % (Auto) 2.0 H Neut % (Auto) 90.6 H Lymph % (Auto) 2.4 L [place] % (Auto) 4.6 Eos % (Auto) 0.0 Baso % (Auto) 0.4 Lymph # (Auto) 0.5 L [place] # (Auto) 0.9 Eos # (Auto) 0.0 Baso # (Auto) 0.1 Abs Immat Gran (auto) 0.38 H Absolute Neuts (auto) 17.4 H Absolute Nucleated RBC 0.000 Nucleated RBC % (auto) 0.0 Smear Tech's Comments VERIFIED Sodium 136 Potassium 5.1 Chloride 95 L Carbon Dioxide 26 Anion Gap 20 BUN 19 H Creatinine 0.56 Estim Creat Clear Calc 116.1 Estimated GFR > 60 POC Glucose 286 H Random Glucose 262 H Calcium 9.1 D 01/03/22 15:16 WBC RBC Hgb Hct MCV MCH MCHC RDW Plt Count MPV Immature Gran % (Auto) Neut % (Auto) Lymph % (Auto) [place] % (Auto) Eos % (Auto) Baso % (Auto) Lymph # (Auto) [place] # (Auto) Eos # (Auto) Baso # (Auto) Abs Immat Gran (auto) Absolute Neuts (auto) Absolute Nucleated RBC Nucleated RBC % (auto) Smear Tech's Comments Sodium Potassium Chloride Carbon Dioxide Anion Gap BUN Creatinine Estim Creat Clear Calc Estimated GFR POC Glucose 221 H Random Glucose Calcium Microbiology Microbiology Results: Microbiology 12/21/21 18:21 Blood - Venous Blood Culture - Final No growth after 5 days. 12/21/21 18:21 Blood - Venous Blood Culture - Final No growth after 5 days. Review of Systems Cardiovascular: Denies chest pain, Reports pedal edema, Reports dyspnea, Reports dyspnea on exertion and Reports orthopnea Respiratory: Denies cough, Reports dyspnea and Reports dyspnea on exertion Physical Exam Vital Signs: Vital Signs: Last Vital Signs Temp 95.5 F L 01/03/22 15:11 Pulse 99 01/03/22 15:11 Resp 15 01/03/22 15:11 BP 182/88 H 01/03/22 15:11 Pulse Ox 94 01/03/22 15:11 O2 Del Method 01/03/22 15:11 O2 Flow Rate 3 01/03/22 15:11 FiO2 26 01/03/22 08:00 Oxygen Flow Rate 4 12/22/21 16:00 BMI result Body Mass Index 34.6 Const: General: no acute distress, alert and awake Nutritional Appearance: obese Eyes: Sclerae: sclerae normal EOM: EOMs intact bilaterally Neck: Neck: Yes no lymphadenopathy, Yes trachea midline and Yes supple Resp: Effort & Inspection: normal respiratory effort and no respiratory distress Auscultation: crackles ( diffuse bilateral) Cardio: Rate: regular rate Rhythm: regular rhythm Heart sounds: no gallops, no murmurs and no rubs GI: Palpation (GI): Soft to palpation and Other GI palpation findings present ( Nontender) Auscultation: normal bowel sounds Extrem: General: No clubbing, No cyanosis and Yes edema ( 1+ bilateral) Procedures Date of Service Date of Service: 01/03/22 Assessment and Plan Assessment and plan (1) COPD exacerbation: Status: Acute (2) Acute on chronic respiratory failure with hypoxia and hypercapnia: Status: Acute (3) Congestive heart failure: Status: Acute Plan Impression: 51-year-old lady with underlying COPD admitted with COPD exacerbation, improving slowly, now also with a component of fluid retention/pulmonary edema. Recommendations: Continue to titrate down systemic glucocorticoids. Continue nebulized bronchodilators. Will add diuretic. Time Spent With Patient Time: Total time spent is greater than 50% in coordination of care (as documented) at patient's floor/unit and/or counseling patient: Progress Note: Quality Stroke Does the patient have a stroke diagnosis?: No
[2022-01-03] MEDS: Furosemide 40 MG/4 ML VIAL IVPUSH (16:49)
[2022-01-03] MEDS: Budesonide 180 MCG AER.POW.BA 1 PUFF INHALE ×2 (19:55→21:37)
[2022-01-03] MEDS: Montelukast Sodium 10 MG TABLET PO (19:55)
[2022-01-03 21:10] LABS: Glucose, Whole Blood 243 mg/dL (60-115)
[2022-01-03] MEDS: Insulin Glargine,Hum.rec.anlog 100 UNIT/ML 10 ML VIAL 45 UNIT SUBCUT (21:52)
[2022-01-04] VITALS (11 sets, daily range): BP systolic 144–168; BP diastolic 84–104; PULSE 88–109; RESP 16–22; TEMP 36.1–36.6; O2SAT 91–97; BMI 34.6
[2022-01-04] MEDS: Heparin Sodium,Porcine 5,000 UNIT/ML VIAL 5000 UNIT SUBCUT ×3 (06:04→22:38)
[2022-01-04 06:45] LABS: MANUAL DIFF FLAG NO
[2022-01-04 06:52] LABS: Basophils Absolute Auto 0.1 X10*3/uL (0.0-0.2); Basophils Percent Auto 0.3 % (0-2); Eosinophils Percent Auto 0.2 % (0-4); Hematocrit 39.4 % (37.0-47.0); Hemoglobin 12.5 g/dl (12.0-16.0); Imm Gran Abs Auto 0.37 X10*3/uL (0.00-0.03); Lymphocytes Absolute Auto 1.6 X10*3/uL (1.2-4.9); Lymphocytes Percent Auto 8.7 % (20-40); Mean Corpuscular HGB Conc 31.7 g/dl (31.0-35.0); Mean Corpuscular Hemoglobin 29.3 pg (27.0-33.0); Mean Corpuscular Volume 92.3 fL (80.0-98.0); Mean Platelet Volume 9.5 fL (9.4-12.3); Monocytes Absolute Auto 1.2 X10*3/uL (0.1-1.2); Monocytes Percent Auto 6.5 % (2-11); Neutrophils Absolute Auto 15.3 x10*3/uL (2.0-8.3); Neutrophils Percent Auto 82.3 % (45-73); Platelet Count 265 X10*3/uL (160-400); Red Blood Count 4.27 X10*6/uL (4.20-5.50); Red Cell Distribution Width 13.3 % (11.0-16.0); White Blood Count 18.5 X10*3/uL (4.8-10.8)
[2022-01-04 07:43] LABS: Glucose, Whole Blood 182 mg/dL (60-115)
[2022-01-04 07:45] LABS: Anion Gap 16 (12-20); Blood Urea Nitrogen 27 mg/dL (9-16); Calcium 9.5 mg/dL (8.4-10.2); Carbon Dioxide 39 mmol/L (22-29); Chloride 89 mmol/L (96-108); Creatinine Clr Calc Pharmacy 112.1; Estimated Glomerular Filt Rate > 60; Glucose Random 230 mg/dL (60-115); Potassium 3.9 mmol/L (3.3-5.1); Sodium 140 mmol/L (135-145)
[2022-01-04] MEDS: Salmeterol Xinafoate 50 MCG BLST.W.DEV 1 PUFF INHALE ×2 (07:53→20:14)
[2022-01-04] MEDS: Insulin Lispro 100 UNIT/ML 3 ML VIAL SUBCUT ×8 (08:01→22:37)
[2022-01-04] MEDS: Gabapentin 300 MG CAPSULE PO ×2 (08:01→22:39)
[2022-01-04] MEDS: methylPREDNISolone Sod Succ 40 MG/ML VIAL IVPUSH (08:01)
[2022-01-04] MEDS: dilTIAZem HCL CD 180 MG CAP.ER.24H 360 MG PO (08:01)
[2022-01-04] MEDS: hydrALAZINE HCl 25 MG TABLET PO ×3 (08:01→22:39)
[2022-01-04] MEDS: Simethicone 80 MG TAB.CHEW PO ×4 (08:01→22:39)
[2022-01-04] MEDS: methADONE HCl 20 MG/2 ML ORAL.CONC 50 MG PO (08:02)
[2022-01-04] MEDS: 0.9 % Sodium Chloride Flush 3 ML SYRINGE IVFLUSH ×3 (08:03→22:40)
[2022-01-04] MEDS: Furosemide 20 MG/2 ML VIAL IVPUSH (09:21)
[2022-01-04] MEDS: Budesonide 180 MCG AER.POW.BA 1 PUFF INHALE (10:24)
[2022-01-04] MEDS: buPROPion HCL 75 MG TABLET 150 MG PO ×2 (10:25→22:39)
[2022-01-04] MEDS: guaiFENesin LA 600 MG TAB.ER.12H PO ×2 (10:25→22:39)
--- NOTE | 2022-01-04 11:14 | MHC.CM.PN ---
Per ROUNDS discussion, Patient is not yet medically cleared for dc (IV Solu Medrol); home/resume services is the goal and CM will continue to follow.
[2022-01-04 11:57] LABS: Glucose, Whole Blood 181 mg/dL (60-115)
[2022-01-04] MEDS: Albuterol/Iprat 2.5/0.5MG 3 ML AMPUL.NEB INHALE (12:08)
[2022-01-04] MEDS: Azithromycin 250 MG TABLET PO (12:15)
--- NOTE | 2022-01-04 14:24 | P.PNIM_ITS ---
Subjective Subjective Date of Service: 01/04/22 Interval History: Feels more comfortable today was still short of breath, tachycardic and dyspneic with minimal exertion No reported overnight events Review of Systems No fever, chills or weakness No chest pain, palpitation Dyspnea on exertion, coughing No abdominal pain, nausea or vomiting No urinary symptoms No any rash or wounds Physical Exam Vital Signs: Vital Signs: Last Vital Signs Temp 97.8 F 01/04/22 11:48 Pulse 103 H 01/04/22 12:10 Resp 18 01/04/22 11:48 BP 154/87 H 01/04/22 11:48 Pulse Ox 92 01/04/22 11:48 O2 Del Method 01/04/22 11:48 O2 Flow Rate 3 01/04/22 11:48 FiO2 26 01/03/22 08:00 Oxygen Flow Rate 4 12/22/21 16:00 BMI result Body Mass Index 34.6 Const: Other: Appearance: Alert. Oriented X3. In mild respiratory distress Eyes: Pupils equal, round and reactive to light. ENT: Pharynx normal. Neck: Normal inspection. Neck supple. No lymph nodes noted. No crepitus CVS: Normal heart rate and rhythm. Pulses normal. Normal S1 and S2 Respiratory: bilateral wheezing, decreased breath movements, basal rhonchi Abdomen: Soft and nontender. No rigidity. No distention. Skin: Skin warm and dry. Normal skin color. Normal skin turgor. Extremities: No lower extremity edema. No Lacerations. No Rash Neuro: Oriented X 3. No motor deficit. No sensory deficit. Moving all extremities Psych: calm, cooperative, normal affect Objective Data Active Medications Albuterol/Ipratropium (Albuterol/Iprat 2.5/0.5mg 3 Ml Ampul.Neb) 3 ml INHALE RQ4H PRN PRN Reason: Dyspnea Last Admin: 01/04/22 12:08 Dose: 3 ml Documented By: BI Azithromycin (Azithromycin 250 Mg Tablet) 250 mg PO Q24H [facility] Last Admin: 01/04/22 12:15 Dose: 250 mg Documented By: SERGE Budesonide (Budesonide 180 Mcg Aer.Pow.Ba) 1 puff INHALE BID [facility] Last Admin: 01/04/22 10:24 Dose: 1 puff Documented By: SERGE Bupropion HCl (Bupropion Hcl 75 Mg Tablet) 150 mg PO BID [facility] Last Admin: 01/04/22 10:25 Dose: 150 mg Documented By: SERGE Dextrose (Dextrose 50 % 25 Gm/50 Ml Syringe) 25 gm IVPUSH Q15M PRN; Protocol PRN Reason: per Hypoglycemia Standing Ord. Dextrose (Dextrose 50 % 25 Gm/50 Ml Syringe) 25 gm IVPUSH Q15M PRN; Protocol PRN Reason: per Hypoglycemia Standing Ord. Dextrose (Dextrose 50 % 25 Gm/50 Ml Syringe) 25 gm IVPUSH Q15M PRN; Protocol PRN Reason: per Hypoglycemia Standing Ord. Diltiazem HCl (Diltiazem Hcl Cd 180 Mg Cap.Er.24h) 360 mg PO DAILY [facility]; Protocol Last Admin: 01/04/22 08:01 Dose: 360 mg Documented By: SERGE Docusate Sodium (Docusate Sodium 100 Mg Capsule) 100 mg PO DAILY PRN PRN Reason: Constipation Gabapentin (Gabapentin 300 Mg Capsule) 300 mg PO BID [facility] Last Admin: 01/04/22 08:01 Dose: 300 mg Documented By: SERGE Glucose (Glucose Gel 15 Gm Gel..Gram.) 15 gm PO Q15M PRN; Protocol PRN Reason: per Hypoglycemia Standing Ord. Glucose (Glucose Gel 15 Gm Gel..Gram.) 15 gm PO Q15M PRN; Protocol PRN Reason: per Hypoglycemia Standing Ord. Glucose (Glucose Gel 15 Gm Gel..Gram.) 15 gm PO Q15M PRN; Protocol PRN Reason: per Hypoglycemia Standing Ord. Guaifenesin (Guaifenesin La 600 Mg Tab.Er.12h) 600 mg PO BID [facility] Last Admin: 01/04/22 10:25 Dose: 600 mg Documented By: SERGE Heparin Sodium (Porcine) (Heparin Sodium,Porcine 5,000 Unit/Ml Vial) 5,000 unit SUBCUT Q8H [facility] Last Admin: 01/04/22 06:04 Dose: 5,000 unit Documented By: NOEMÍ Hydralazine HCl (Hydralazine Hcl 25 Mg Tablet) 25 mg PO TID [facility]; Protocol Last Admin: 01/04/22 08:01 Dose: 25 mg Documented By: SERGE Insulin Glargine (Insulin Glargine,Hum.Rec.Anlog 100 Unit/Ml 10 Ml Vial) 45 unit SUBCUT BEDTIME [facility] Last Admin: 01/03/22 21:52 Dose: 45 unit Documented By: BRADY Insulin Human Lispro (Insulin Lispro 100 Unit/Ml 3 Ml Vial) 0.1 - 10 unit SUBCUT QIDACHS [facility]; Protocol Last Admin: 01/04/22 12:14 Dose: 2 unit Documented By: SERGE Insulin Human Lispro (Insulin Lispro 100 Unit/Ml 3 Ml Vial) 5 unit SUBCUT Q IDACHS [facility] Last Admin: 01/04/22 12:14 Dose: 5 unit Documented By: SERGE Melatonin (Melatonin 3 Mg Tablet) 6 mg PO BEDTIME PRN PRN Reason: insomnia Last Admin: 12/31/21 22:20 Dose: 6 mg Documented By: CHANI Methadone HCl (Methadone Hcl 20 Mg/2 Ml Oral.Conc) 50 mg PO DAILY [facility] Last Admin: 01/04/22 08:02 Dose: 50 mg Documented By: SERGE Methylprednisolone Sodium Succinate (Methylprednisolone Sod Succ 40 Mg/Ml Vial) 40 mg IVPUSH DAILY [facility] Last Admin: 01/04/22 08:01 Dose: 40 mg Documented By: SERGE Montelukast Sodium (Montelukast Sodium 10 Mg Tablet) 10 mg PO BEDTIME [facility] Last Admin: 01/03/22 19:55 Dose: 10 mg Documented By: BRADY Multi-Ingred Medicated Throat [place] (Throat [place], Medicated 20 Ml Bottle) 1 spray MUCOUS MEM Q2H PRN PRN Reason: Sore Throat Last Admin: 12/29/21 21:15 Dose: 1 spray Documented By: OLGA Pharmacy Consult (Consult Rx Perform Med Rec) 1 each MISCELLANE ONCE PRN PRN Reason: Consult order Salmeterol Xinafoate (Salmeterol Xinafoate 50 Mcg Blst.W.Dev) 1 puff INHALE RBID [facility] Last Admin: 01/04/22 07:53 Dose: 1 puff Documented By: BI Simethicone (Simethicone 80 Mg Tab.Chew) 80 mg PO QIDWMHS [facility] Last Admin: 01/04/22 12:15 Dose: 80 mg Documented By: HO.SOLISPE Sodium Chloride (0.9 % Sodium Chloride Flush 3 Ml Syringe) 3 ml IVFLUSH QSHIFT ANA Last Admin: 01/04/22 08:03 Dose: 3 ml Documented By: SERGE Labs CBC & Chem 7: 01/04/22 06:28 01/04/22 06:28 Labs: Laboratory Results - last 24 hr 01/03/22 01/03/22 01/04/22 15:16 20:53 06:28 MCV 92.3 MCH 29.3 MCHC 31.7 RDW 13.3 Plt Count 265 D MPV 9.5 Immature Gran % (Auto) 2.0 H Neut % (Auto) 82.3 H Lymph % (Auto) 8.7 L [place] % (Auto) 6.5 Eos % (Auto) 0.2 Baso % (Auto) 0.3 Lymph # (Auto) 1.6 [place] # (Auto) 1.2 Eos # (Auto) 0.0 Baso # (Auto) 0.1 Abs Immat Gran (auto) 0.37 H Absolute Neuts (auto) 15.3 H Absolute Nucleated RBC 0.000 Nucleated RBC % (auto) 0.0 Anion Gap Estim Creat Clear Calc Estimated GFR POC Glucose 221 H 243 H Random Glucose Calcium 01/04/22 01/04/22 01/04/22 06:28 07:35 11:47 MCV MCH MCHC RDW Plt Count MPV Immature Gran % (Auto) Neut % (Auto) Lymph % (Auto) [place] % (Auto) Eos % (Auto) Baso % (Auto) Lymph # (Auto) [place] # (Auto) Eos # (Auto) Baso # (Auto) Abs Immat Gran (auto) Absolute Neuts (auto) Absolute Nucleated RBC Nucleated RBC % (auto) Anion Gap 16 Estim Creat Clear Calc 112.1 Estimated GFR > 60 POC Glucose 182 H 181 H Random Glucose 230 H Calcium 9.5 Assessment and Plan (1) Asthmatic bronchitis with acute exacerbation: Status: Acute (2) COPD exacerbation: Status: Acute (3) Acute respiratory failure with hypoxia: Status: Acute Plan 51-year-old female with a past medical history of? hypertension, hyperlipidemia, diabetes,asthma/COPD, chronic respiratory failure on 2.5 L of home oxygen, CHF, pulmonary nodule, obesity presented to the hospital with a chief complaint of shortness of breath.? Noted to be in acute asthma/ COPD exacerbation, requiring BiPAP initially in the ER, has patient is status mildly improved, patient was admitted to the medical floors.? Patient had RSV positive.? Patient's hospital course complicated by acute respiratory failure requiring intubation, transferred to the ICU. as a respiratory status improved, patient was extubated on 12/29/2021, subsequent transfer to the medical floors for further management. Acute hypoxic/ hypercapnic respiratory failure In the setting of asthma / COPD exacerbation/ RSV positive.? Extubated on 12/29/2021, Currently on supplemental oxygen. bedtime BiPAP given her history of CHITO. Changed soon withdrawal to prednisone p.o. Pulmonology input appreciated, add Lasix Continue DuoNeb standing and p.r.n. Supplemental oxygen with goal oxygen saturation 93%. Continue azithromycin for anti-inflammatory effect ?chronic medical conditions: History of diabetes:? Insulin sliding scale plus Lantus.? Patient had intermittent hyperglycemia-likely in setting of steroids.? History of anxiety / depression: Continue home medications History of neuropathy: Continue home gabapentin History of hypertension: Continue hydralazine History of opiate dependence:? Patient on methadone. ? DVT prophylaxis:? Subcu heparin Code status:? Full code The patient will need overnight hospital stay to continue treatment for acute hypoxic respiratory failure to prevent possible decompensation and need for intensive care. Quality Stroke Does the patient have a stroke diagnosis?: No VTE Prior VTE?: No VTE Risk Level:: Medical - moderate - high VTE Device Contraindication: Treatment Not Indicated VTE Drug Contraindication: N/A - Med Ordered
[2022-01-04 16:51] LABS: Glucose, Whole Blood 327 mg/dL (60-115)
[2022-01-04 19:53] LABS: Glucose, Whole Blood 238 mg/dL (60-115)
[2022-01-04 22:32] LABS: Glucose, Whole Blood 275 mg/dL (60-115)
[2022-01-04] MEDS: Montelukast Sodium 10 MG TABLET PO (22:39)
[2022-01-04] MEDS: Insulin Glargine,Hum.rec.anlog 100 UNIT/ML 10 ML VIAL 45 UNIT SUBCUT (22:40)
[2022-01-05] MEDS: Budesonide 180 MCG AER.POW.BA 1 PUFF INHALE (02:01)
[2022-01-05 04:00] VITALS: BP 161/94; PULSE 84; RESP 20; TEMP 36.4; O2SAT 92
[2022-01-05] MEDS: Heparin Sodium,Porcine 5,000 UNIT/ML VIAL 5000 UNIT SUBCUT (05:58)
[2022-01-05] MEDS: methADONE HCl 20 MG/2 ML ORAL.CONC 50 MG PO (08:22)
[2022-01-05] MEDS: dilTIAZem HCL CD 180 MG CAP.ER.24H 360 MG PO (08:23)
[2022-01-05] MEDS: hydrALAZINE HCl 25 MG TABLET PO (08:23)
[2022-01-05] MEDS: buPROPion HCL 75 MG TABLET 150 MG PO (08:23)
[2022-01-05] MEDS: Simethicone 80 MG TAB.CHEW PO (08:23)
[2022-01-05] MEDS: Gabapentin 300 MG CAPSULE PO (08:23)
[2022-01-05] MEDS: predniSONE 20 MG TABLET 40 MG PO (08:24)
[2022-01-05] MEDS: guaiFENesin LA 600 MG TAB.ER.12H PO (08:24)
[2022-01-05] MEDS: 0.9 % Sodium Chloride Flush 3 ML SYRINGE IVFLUSH (08:24)
[2022-01-05 08:34] LABS: Glucose, Whole Blood 94 mg/dL (60-115)
--- NOTE | 2022-01-05 10:24 | P.DS_ITS ---
DS: Providers Provider Date of Service: 01/05/22 Date of admission: 12/21/21 22:08 Primary care physician: Kelli Benavides MD Consults: 12/24/21 11:38 Consult to Pulmonology Routine Consulting Provider: [facility] Pulmonology Services Reason for consultation: acute hyspoxemic/hypercarbic respiratory failure sec to copd -level of care Has provider been notified: No 01/02/22 12:46 Consult to Pulmonology Routine Consulting Provider: Allan Brito Reason for consultation: COPD/Asthma DS: Diagnosis Discharge Diagnosis (1) Asthmatic bronchitis with acute exacerbation: Status: Acute (2) COPD exacerbation: Status: Acute (3) Acute respiratory failure with hypoxia: Status: Acute (4) Viral syndrome: Status: Acute DS: Summary Hospital Course Hospital Course: The patient had prolonged hospital stay. For full details please return to EMR. Admission note HPI ?51-year-old female with past medical history of COPD asthma overlap syndrome, chronic respiratory failure on 2.5 L baseline oxygen, diabetes cover HTN, HLD, lives the hospital with complaints of shortness of breath.? Symptoms started the day prior.? Reports cough, sputum production, no fever chills, reports her granddaughter has been sick with a viral infection recently and she caught it from her.? Patient denies any orthopnea or PND, denies any lower extremity edema.? Denies any chest pain, no palpitations, headache or change in vision, no nausea or vomiting, no abdominal pain, no diarrhea constipation, no urinary symptoms.? EMS reported that patient was found to be satting in the mid 80s on 2.5 L of oxygen on their arrival.? In the ED patient dropped to 79% on room air, currently on 5 L satting 93% Labs are significant for WBC count of 21.2 hemoglobin 11.4, pH of 7.58, pCO2 of 35, bicarb 40, BNP is 35, COVID-19 negative Chest x-ray shows no acute pulmonary process Patient needed several hours of BiPAP in the ED but is now on nasal cannula, and will be admitted for further management Hospital course The patient presented to the hospital with a chief complaint of shortness of breath.? Noted to be in acute asthma/COPD exacerbation requiring BiPAP initially in the ER. patient was admitted to the medical floors as her symptoms improved .? Patient had RSV positive.? Patient's hospital course complicated by acute respiratory failure requiring intubation, transferred to the ICU. Treated with bronchocilator nebulizers, steroids, antibiotics and diuresis as a respiratory status improved, patient was extubated on 12/29/2021, subsequent transfer to the medical floors. followed by pulmonology team who recommended gentle diuresis. she was weaned down to 3L of Oxygen her home dose. will be discharged home on Azithromycin, tappering dose prednisone, steroid inhalor and cough medication. to be followed as outpatient. Continue prednisone tappering dose as prescribed Azithromycin for 3 more days Use your inhalers and nebulizers as prescribed Time Spent with Patient Time attestation: Total time spent providing and/or coordinating discharge services: Discharge coordination time: Greater than 30 minutes Quality: Safe Use of Opioids Does Pt have an Active Cancer Diagnosis on the Problem List?: No Quality: Stroke Does the patient have a stroke diagnosis?: No Physical Exam Vital Signs: Vital Signs: Last Vital Signs Temp 97.6 F 01/05/22 04:00 Pulse 84 01/05/22 04:00 Resp 20 01/05/22 04:00 BP 161/94 H 01/05/22 04:00 Pulse Ox 92 01/05/22 04:00 O2 Del Method 01/05/22 04:00 O2 Flow Rate 3 01/04/22 20:00 FiO2 26 01/03/22 08:00 Oxygen Flow Rate 4 12/22/21 16:00 BMI result Body Mass Index 34.6 Const: Other: Appearance: Alert. Oriented X3. not in distress Eyes: Pupils equal, round and reactive to light. ENT: Pharynx normal. Neck: Normal inspection. Neck supple. No lymph nodes noted. CVS: Normal heart rate and rhythm. Pulses normal. Normal S1 and S2 Respiratory: no audible wheezing, decreased breath movements Abdomen: Soft and nontender. No rigidity. No distention. Skin: Skin warm and dry. Normal skin color. Normal skin turgor. Extremities: No lower extremity edema. No Lacerations. No Rash Neuro: Oriented X 3. No motor deficit. No sensory deficit. Moving all extremities Psych: calm, cooperative, normal affect DS: Data Data Completed and Pending Completed studies during hospitalization [Text1]: Procedures Assistance with Respiratory Ventilation, 24-96 Consecutive Hours, Continuous Positive Airway Pressure (05/18/21) Assistance with Respiratory Ventilation, Less than 24 Consecutive Hours, Continuous Positive Airway Pressure (12/08/21) Insertion of Endotracheal Airway into Trachea, Via Natural or Artificial Opening (11/02/21) Insertion of Infusion Device into Superior Vena Cava, Percutaneous Approach (11/02/21) Respiratory Ventilation, 24-96 Consecutive Hours (11/02/21) Ultrasonography of Superior Vena Cava, Guidance (11/02/21) Labs on day of discharge: Laboratory Results - last 24 hr 01/04/22 01/04/22 01/04/22 11:47 16:29 19:46 POC Glucose 181 H 327 H 238 H 01/04/22 01/05/22 22:26 08:21 POC Glucose 275 H 94 Imaging Chest x-ray: Radiologist's impression: ITS Impressions Chest X-Ray 12/21/21 17:10 IMPRESSION: No acute pulmonary process. Chest X-Ray 12/24/21 12:14 IMPRESSION: No acute process. Chronic changes. Stable appearance of the chest since previous evaluation. Chest X-Ray 12/25/21 10:15 IMPRESSION: Mild pulmonary edema. Chest X-Ray 12/25/21 12:37 IMPRESSION: Support devices in place without pneumothorax or significant pleural effusion. No confluent airspace disease identified. Chest X-Ray 01/03/22 15:37 Impression: 1. Clear lungs. 2. Interval removal of the left internal jugular central venous catheter. Discharge Plan Discharge Anticipated Discharge Date/Time: 01/05/22 09:53 Patient Disposition: Home, Self-Care Discharge Diagnosis: Acute hypoxic respiratory failure secondary to COPD exacerbations and viral illness Referrals: Kelli Benavides MD [Primary Care Provider] - 01/07/22 10:15 am (You have a follow up appointment scheduled with PCP. call office if you have to reschedule. ) Discharge Medications: New Serevent Diskus 50 mcg/dose Blister With Device 1 inh inhalation RBID 30 Days Qty: 60 2RF simethicone [Gas Relief (simethicone)] 80 mg Tablet,Chewable 80 mg PO QIDWMHS PRN (Reason: Abdominal Distention) Qty: 30 0RF guaifenesin [Mucinex] 600 mg Tablet Extended Release 12hr 600 mg PO BID Qty: 20 0RF prednisone 10 mg tablet See Taper PO DAILY Qty: 30 0RF Taper: Prednisone 40 mg daily for 3 Days and 0 Hour 30 mg daily for 3 Days and 0 Hour 20 mg daily for 3 Days and 0 Hour 10 mg daily for 3 Days and 0 Hour azithromycin 250 mg Tablet 250 mg PO Q24H Qty: 3 0RF Continued Spiriva with HandiHaler 18 mcg capsule, w/inhalation device 1 cap inhalation DAILY Qty: 30 11RF gabapentin 300 mg capsule 300 mg PO BID 30 Days Qty: 60 3RF diclofenac potassium 50 mg tablet 50 mg PO BID 30 Days Qty: 60 0RF ipratropium-albuterol 0.5 mg-3 mg(2.5 mg base)/3 mL solution for nebulization 3 ml PO Q4H PRN (Reason: for wheezing) Qty: 540 6RF diltiazem HCl [Tiadylt ER] 360 mg capsule,extended release 24 hr 1 cap PO DAILY rosuvastatin 5 mg tablet 1 tab PO BEDTIME Daliresp 500 mcg tablet 1 tab PO DAILY insulin lispro [Humalog U-100 Insulin] 100 unit/mL solution See Protocol subcut TIDAC Protocol: Insulin Correction Scale Less than or equal to 110 ---- Give (units): 0 111 to 150 Give (units): 0 151 to 200 Give (units): 2 201 to 250 Give (units): 4 251 to 300 Give (units): 6 301 to 350 Give (units): 8 Greater than 350 Give (units): 10 Call MD if Blood Glucose > : 350 metformin 500 mg tablet extended release 24 hr 2 tab PO BID hydralazine 25 mg tablet 1 tab PO TID insulin lispro 100 unit/mL solution 4 unit subcut TIDAC Mavyret 100-40 mg tablet 3 tab PO DAILY omeprazole 40 mg capsule,delayed release(DR/EC) 40 mg PO DAILY@0630 methadone 10 mg/mL Concentrate 49 mg PO DAILY ergocalciferol (vitamin D2) 1,250 mcg (50,000 unit) capsule 1,250 mcg PO QWEEK insulin glargine [Lantus U-100 Insulin] 100 unit/mL solution 45 unit subcut BEDTIME lisinopril 40 mg tablet 1 tab PO DAILY ondansetron 4 mg tablet,disintegrating 4 mg PO Q6-8H PRN (Reason: nausea and vomiting) Qty: 14 0RF lidocaine [Lidoderm] 5 % adhesive patch,medicated 1 patch topical DAILY montelukast 10 mg tablet 10 mg PO BEDTIME albuterol sulfate [ProAir HFA] 90 mcg/actuation HFA aerosol inhaler 2 puff inhalation Q4H PRN (Reason: Shortness Of Breath Or Wheezing) loratadine [Claritin] 10 mg tablet 10 mg PO DAILY Brovana 15 mcg/2 mL solution for nebulization 2 ml inhalation Q12H 30 Days Qty: 120 11RF budesonide 0.5 mg/2 mL suspension for nebulization 0.5 mg inhalation BID Qty: 120 11RF bupropion HCl 75 mg tablet 150 mg PO BID 30 Days Qty: 120 3RF theophylline 450 mg tablet extended release 12 hr 450 mg PO Q12H 30 Days Qty: 60 6RF prednisone 10 mg tablet 30 mg PO DAILY 30 Days Qty: 90 0RF Discontinued doxycycline hyclate 100 mg capsule 100 mg PO BID 10 Days Qty: 20 0RF Discharge Orders: Discharge Order (Routine); Ordered 01/05/22 Ordered By: Luis E Bond Diet: Advance to usual diet Activity on Discharge: As tolerated Stand Alone Forms: Patient Portal Discharge page Care Plan Goals: Read below Health Concerns: Read below Plan of Treatment: Read below Assessment: You were admitted to the hospital for evaluation of shortness of breath. Found to be in COPD\CHF exacerbation that worsened requring ICU admission and intubation. improved with Steroids, nebulizers and Diuresis. Followed by pulmonology team. Extubated on 12/29/2021 and weaned down supplemental oxygen Continue prednisone tappering dose as prescribed Azithromycin for 3 more days Use your inhalers and nebulizers as prescribed
--- NOTE | 2022-01-05 10:53 | MHC.CM.PN ---
Female 51 DX COPD exacerbation Patient is discharged to home today. [facility] will resume services, including Methadone delivery. The Last dose letter and dc summary have been faxed to [facility] Methadone clinic. DP Home with services provided by [facility] home care. Patient has arranged for transportation home.
== END 2022-01-05 11:34 | disposition home health service (06) | DRG 140 ==
LOC: HO.ED 19:34 → HO.EDOVER 22:17 → HO.S3 12-22 01:18 → HO.ICU 12-25 11:44 → HO.IMC 12-29 16:04
PROVIDERS: Family Medicine; Hospitalist; Internal Medicine; Internal Medicine Cardiovascular Disease; Nurse Practitioner Acute Care; Registered Nurse Community Health; Admitting Provider Internal Medicine; Emergency Provider Emergency Medicine; PCP Family Medicine; Visit Provider Student in an Organized Health Care Education/Training Program
DX: J44.1 Chronic obstructive pulmonary disease with (acute) exacerbation (principal); J96.21 Acute and chronic respiratory failure with hypoxia; D80.1 Nonfamilial hypogammaglobulinemia; J45.902 Unspecified asthma with status asthmaticus; E87.3 Alkalosis; B97.4 Respiratory syncytial virus as the cause of diseases classified elsewhere; E66.2 Morbid (severe) obesity with alveolar hypoventilation; Z99.81 Dependence on supplemental oxygen; E78.5 Hyperlipidemia, unspecified; F11.20 Opioid dependence, uncomplicated; J96.22 Acute and chronic respiratory failure with hypercapnia; F41.9 Anxiety disorder, unspecified; F32.A Depression, unspecified; I11.0 Hypertensive heart disease with heart failure; I50.9 Heart failure, unspecified; E11.40 Type 2 diabetes mellitus with diabetic neuropathy, unspecified; E11.65 Type 2 diabetes mellitus with hyperglycemia; Z68.41 Body mass index [BMI] 40.0-44.9, adult; Z20.822 Contact with and (suspected) exposure to COVID-19; Z79.4 Long term (current) use of insulin; Z87.891 Personal history of nicotine dependence; Z98.51 Tubal ligation status; Z79.84 Long term (current) use of oral hypoglycemic drugs; Z79.52 Long term (current) use of systemic steroids; Z79.899 Other long term (current) drug therapy
CPT/HCPCS: 36415; 36600; 71045; 80048; 80053; 80076; 82803; 82947; 83605; 83735; 83880; 84100; 84484; 85025; 85610; 87040; 87633; 87635; 93005; 94002; 94003; 94640; 94660; 94664; 94799; 96361; 96374; 96375; 99285; C1758; J0456; J0696; J1940; J2250; J2270; J2920; J2930; J3475

== ENCOUNTER 2022-01-15 16:41 | Emergency (ER) | payer MEDICAID, SELFPAY ==
[2022-01-15 16:46] VITALS: BP 124/76; BP 137/67; PULSE 114; PULSE 120; RESP 119; TEMP 36.9; O2SAT 96; O2SAT 98; BMI 36.1
--- NOTE | 2022-01-15 16:50 | PC.NURSE ---
PT A&Ox3, C/O increase SOB since yesterday, baseline on home 2L NC. Today sat 02 91-92%, duoneb given by EMS. LSCTA, sat 96% on 2L. Respiratory at bedside.
--- NOTE | 2022-01-15 16:59 | ED.SOB ---
HPI - SOB/Dyspnea General Chief Complaint: Dyspnea Stated Complaint: Dyspnea Time Seen by Provider: 01/15/22 16:43 Source: patient Mode of arrival: EMS Limitations: no limitations History of Present Illness HPI Narrative: Patient 51 years old with history of COPD asthma overlap syndrome chronic respiratory failure on 2.5 L baseline oxygen with chronic respiratory failure hypertension type 2 diabetes started having increased shortness of breath since yesterday. Patient is on prednisone 40 mg daily a grandson got sick with RSV 10 days ago no fever no chills has dry cough no chest pain or palpitation no altered sensorium ,patient was saturating 90 -91% on 2 L prior to arrival, received DuoNeb treatment by EMS at this time patient is feeling much better saturating 96% on 2 L Related Data Home Medications Medication Instructions Recorded Confirmed albuterol sulfate 90 mcg/actuation 2 puff inhalation Q4H PRN 12/30/19 12/21/21 aerosol inhaler (ProAir HFA) Shortness Of Breath Or Wheezing loratadine 10 mg tablet (Claritin) 10 mg PO DAILY 12/30/19 12/21/21 montelukast 10 mg tablet 10 mg PO BEDTIME 12/30/19 12/21/21 diltiazem HCl 360 mg capsule,24 1 cap PO DAILY 11/16/20 12/21/21 hr,extended release (Tiadylt ER) roflumilast 500 mcg tablet 1 tab PO DAILY 11/16/20 12/21/21 (Daliresp) rosuvastatin 5 mg tablet 1 tab PO BEDTIME 11/16/20 12/21/21 insulin lispro 100 unit/mL See Protocol subcut TIDAC 12/14/20 12/21/21 subcutaneous solution (Humalog U-100 Insulin) metformin 500 mg tablet,extended 2 tab PO BID 05/18/21 12/21/21 release 24 hr ergocalciferol (vitamin D2) 1,250 1,250 mcg PO QWEEK 06/06/21 12/21/21 mcg (50,000 unit) capsule methadone 10 mg/mL oral concentrate 49 mg PO DAILY 06/06/21 12/22/21 insulin glargine 100 unit/mL 45 unit subcut BEDTIME 06/07/21 12/21/21 subcutaneous solution (Lantus U-100 Insulin) lisinopril 40 mg tablet 1 tab PO DAILY 07/30/21 12/21/21 glecaprevir 100 mg-pibrentasvir 40 3 tab PO DAILY 11/02/21 12/21/21 mg tablet (Mavyret) hydralazine 25 mg tablet 1 tab PO TID 11/02/21 12/21/21 insulin lispro 100 unit/mL 4 unit subcut TIDAC 11/02/21 12/21/21 subcutaneous solution omeprazole 40 mg capsule,delayed 40 mg PO DAILY@0630 11/02/21 12/21/21 release lidocaine 5 % topical patch 1 patch topical DAILY 12/08/21 12/21/21 (Lidoderm) Previous Rx's Medication Instructions Recorded tiotropium bromide 18 mcg capsule 1 cap inhalation DAILY #30 ea 06/25/21 with inhalation device (Spiriva with HandiHaler) arformoterol 15 mcg/2 mL solution 2 ml inhalation Q12H 30 days #120 07/24/21 for nebulization (Brovana) mL budesonide 0.5 mg/2 mL suspension 0.5 mg (2 mL) inhalation BID #120 07/24/21 for nebulization mL gabapentin 300 mg capsule 300 mg PO BID 30 days #60 caps 09/19/21 diclofenac potassium 50 mg tablet 50 mg PO BID 30 days #60 tabs 10/08/21 ondansetron 4 mg disintegrating 4 mg PO Q6-8H PRN nausea and 12/07/21 tablet vomiting #14 tabs bupropion HCl 75 mg tablet 150 mg PO BID 30 days #120 tabs 12/14/21 prednisone 10 mg tablet 30 mg PO DAILY 30 days #90 tabs 12/14/21 theophylline 450 mg 450 mg PO Q12H 30 days #60 tabs 12/14/21 tablet,extended release,12 hr ipratropium 0.5 mg-albuterol 3 mg 3 ml PO Q4H PRN for wheezing #540 12/20/21 (2.5 mg base)/3 mL nebulization mL soln azithromycin 250 mg tablet 250 mg PO Q24H #3 tabs 01/05/22 guaifenesin 600 mg tablet, 600 mg PO BID #20 tabs 01/05/22 extended release 12 hr (Mucinex) prednisone 10 mg tablet See Taper PO DAILY #30 tabs 01/05/22 salmeterol 50 mcg/dose blister 1 inh inhalation RBID 30 days #60 01/05/22 powder for inhalation (Serevent ea Diskus) simethicone 80 mg chewable tablet 80 mg PO QIDWMHS PRN Abdominal 01/05/22 (Gas Relief (simethicone)) Distention #30 tabs Allergies Allergy/AdvReac Type Severity Reaction Status Date / Time No Known Allergies Allergy Verified 12/14/21 10:35 [No Known Allergies*] Review of Systems Review of Systems: Yes all other systems are reviewed and are negative [facility] Past Medical History Medical History Abdominal pain Abnormal chest x-ray Acute respiratory failure Aspiration into airway Asthma-COPD overlap syndrome Chronic respiratory failure Chronic respiratory failure Congestive heart failure COPD (chronic obstructive pulmonary disease) COPD exacerbation COPD mixed type Diabetes mellitus Essential hypertension Hyperlipidemia, unspecified Hypertensive cardiovascular disease Hypogammaglobulinemia Leukocytosis Limb swelling Morbid obesity Opioid dependence Poor dentition Pulmonary congestion Pulmonary nodule Rib fractures Status asthmaticus with COPD (chronic obstructive pulmonary disease) Tobacco abuse Type 2 diabetes mellitus Type 2 diabetes mellitus with unspecified complications Vomiting Surgical History H/O tubal ligation Family History Family History Father Diabetes Other Asthma Social History Social History Household Members: Children Household Members Other:: 3 Housing: Apartment Do you presently have visiting nurse or other home services: Yes Unable to assess alcohol history related to: Unknown Alcohol intake: former Patient Tobacco Use Status: Former Tobacco user Tobacco use type: Cigarette Cigarettes Per Day: 1 Years Smoked: 35 e-Cigarette/Vaping Use: Currently Using Second Hand Smoke Exposure: No Substance Use Type: Opiates Advance Directives: Yes Advance Directives on File: Yes Advance Directives Date on File: 06/12/21 service: No Current occupational status: disabled Physical Exam Vital Signs: Vital Signs: Last Vital Signs Temp 98.7 F 01/15/22 20:00 Pulse 109 H 01/15/22 20:00 Resp 20 01/15/22 20:00 BP 142/80 H 01/15/22 20:00 Pulse Ox 93 01/15/22 20:00 O2 Del Method 01/15/22 20:00 O2 Flow Rate 2 01/15/22 20:00 Oxygen Flow Rate 2 01/15/22 16:46 BMI result Body Mass Index 36.1 Appearance: Alert. Oriented X3. No acute distress. Eyes: PERRLA, No Nystagmus ENT: Pharynx normal. Oral Mucosa moist Neck: Normal inspection. Neck supple. CVS: Normal heart rate and rhythm. Pulses normal. Respiratory: No respiratory distress. Equal air entry bilateral, prolonged expiration with mild wheezing bilateral Abdomen: Soft and nontender. Bowel sounds are present, no mass palpable, no CVA tenderness Skin: Skin warm and dry. Normal skin color. Normal skin turgor. Extremities: No lower extremity edema. No calf tenderness Neuro: Oriented X 3. No motor deficit. No sensory deficit.No cerebellar signs , cranial nerves II-XII intact MDM - SOB/Dyspnea MDM Narrative Medical decision making narrative: Patient with COPD/asthma overlap syndrome oxygen dependent on prednisone at home came with shortness of breath COVID RSV and influenza negative patient received albuterol treatment in the ER and saturating 96% on 2 L will discharge patient home Differential Diagnosis Differential diagnosis: Likely acute exacerbation of chronic obstructive airways disease Medical Records Attestation: I reviewed the patient's medical records. Lab Data Attestation: I reviewed the patient's lab results. 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 Prescriptions: No Action Spiriva with HandiHaler 18 mcg capsule, w/inhalation device 1 cap inhalation DAILY Qty: 30 11RF gabapentin 300 mg capsule 300 mg PO BID 30 Days Qty: 60 3RF diclofenac potassium 50 mg tablet 50 mg PO BID 30 Days Qty: 60 0RF ipratropium-albuterol 0.5 mg-3 mg(2.5 mg base)/3 mL solution for nebulization 3 ml PO Q4H PRN (Reason: for wheezing) Qty: 540 6RF diltiazem HCl [Tiadylt ER] 360 mg capsule,extended release 24 hr 1 cap PO DAILY rosuvastatin 5 mg tablet 1 tab PO BEDTIME Daliresp 500 mcg tablet 1 tab PO DAILY insulin lispro [Humalog U-100 Insulin] 100 unit/mL solution See Protocol subcut TIDAC Protocol: Insulin Correction Scale Less than or equal to 110 ---- Give (units): 0 111 to 150 Give (units): 0 151 to 200 Give (units): 2 201 to 250 Give (units): 4 251 to 300 Give (units): 6 301 to 350 Give (units): 8 Greater than 350 Give (units): 10 Call MD if Blood Glucose > : 350 metformin 500 mg tablet extended release 24 hr 2 tab PO BID hydralazine 25 mg tablet 1 tab PO TID insulin lispro 100 unit/mL solution 4 unit subcut TIDAC Mavyret 100-40 mg tablet 3 tab PO DAILY omeprazole 40 mg capsule,delayed release(DR/EC) 40 mg PO DAILY@0630 methadone 10 mg/mL Concentrate 49 mg PO DAILY ergocalciferol (vitamin D2) 1,250 mcg (50,000 unit) capsule 1,250 mcg PO QWEEK insulin glargine [Lantus U-100 Insulin] 100 unit/mL solution 45 unit subcut BEDTIME lisinopril 40 mg tablet 1 tab PO DAILY ondansetron 4 mg tablet,disintegrating 4 mg PO Q6-8H PRN (Reason: nausea and vomiting) Qty: 14 0RF lidocaine [Lidoderm] 5 % adhesive patch,medicated 1 patch topical DAILY Serevent Diskus 50 mcg/dose Blister With Device 1 inh inhalation RBID 30 Days Qty: 60 2RF simethicone [Gas Relief (simethicone)] 80 mg Tablet,Chewable 80 mg PO QIDWMHS PRN (Reason: Abdominal Distention) Qty: 30 0RF guaifenesin [Mucinex] 600 mg Tablet Extended Release 12hr 600 mg PO BID Qty: 20 0RF prednisone 10 mg tablet See Taper PO DAILY Qty: 30 0RF Taper: Prednisone 40 mg daily for 3 Days and 0 Hour 30 mg daily for 3 Days and 0 Hour 20 mg daily for 3 Days and 0 Hour 10 mg daily for 3 Days and 0 Hour azithromycin 250 mg Tablet 250 mg PO Q24H Qty: 3 0RF montelukast 10 mg tablet 10 mg PO BEDTIME albuterol sulfate [ProAir HFA] 90 mcg/actuation HFA aerosol inhaler 2 puff inhalation Q4H PRN (Reason: Shortness Of Breath Or Wheezing) loratadine [Claritin] 10 mg tablet 10 mg PO DAILY Brovana 15 mcg/2 mL solution for nebulization 2 ml inhalation Q12H 30 Days Qty: 120 11RF budesonide 0.5 mg/2 mL suspension for nebulization 0.5 mg inhalation BID Qty: 120 11RF bupropion HCl 75 mg tablet 150 mg PO BID 30 Days Qty: 120 3RF theophylline 450 mg tablet extended release 12 hr 450 mg PO Q12H 30 Days Qty: 60 6RF prednisone 10 mg tablet 30 mg PO DAILY 30 Days Qty: 90 0RF Interventions: ED Discharge Assessment Last Done: 01/15/22 20:24 Discharge Date/Time: 01/15/22 20:25
[2022-01-15 17:00] VITALS: PULSE 117; RESP 18; O2SAT 96
[2022-01-15 17:01] LABS: Glucose, Whole Blood 376 mg/dL (60-115)
[2022-01-15] MEDS: Albuterol Sulfate 2.5 MG, Albuterol Sulfate (0.083%) 2.5 MG 5 MG INHALE (17:04)
[2022-01-15 18:09] LABS: Influenza A PCR NEGATIVE (Negative); Influenza B PCR NEGATIVE (Negative); Resp Syncy Virus RNA Qual PCR NEGATIVE (Negative); SARS COV2 PCR INHOUSE NEGATIVE (Negative)
[2022-01-15 20:00] VITALS: BP 142/80; PULSE 109; RESP 20; TEMP 37.1; O2SAT 93
[2022-01-15] MEDS: Insulin Lispro 100 UNIT/ML 3 ML VIAL 12 UNIT SUBCUT (20:18)
--- NOTE | 2022-01-15 20:19 | PC.NURSE ---
pT v/s are stable, pt POC was 326 and 12 u of humolog was given as order by the provider. will proceed with the d/c paper.
[2022-01-15 20:24] LABS: Glucose, Whole Blood 326 mg/dL (60-115)
== END 2022-01-15 20:25 | disposition home or self-care (01) ==
PROVIDERS: Emergency Provider Internal Medicine; PCP Family Medicine
DX: J44.1 Chronic obstructive pulmonary disease with (acute) exacerbation (principal); Z20.822 Contact with and (suspected) exposure to COVID-19; E11.9 Type 2 diabetes mellitus without complications; I11.0 Hypertensive heart disease with heart failure; E78.5 Hyperlipidemia, unspecified; F11.20 Opioid dependence, uncomplicated; F17.290 Nicotine dependence, other tobacco product, uncomplicated; Z79.4 Long term (current) use of insulin; Z79.899 Other long term (current) drug therapy; Z79.51 Long term (current) use of inhaled steroids; Z79.52 Long term (current) use of systemic steroids
CPT/HCPCS: 0241U; 82947; 94640; 99284

== ENCOUNTER 2022-01-22 14:17 | Outpatient (REF) | payer MEDICAID, SELFPAY ==
[2022-01-22 14:59] LABS: ABG Base Excess 12.8 mmol/L; ABG HCO3 38 mmol/L (22-26); ABG pCO2 54 mmHg (32-45); ABG pH 7.46 (7.35-7.45); ABG pO2 59 mmHg (83-108)
[2022-01-22 15:00] LABS: ABG Refer to POC result
[2022-01-23 05:42] LABS: Theophylline 19.1 MG/L ((10-20))
== END 2022-01-22 14:18 | disposition home or self-care (01) ==
LOC: HO.LAB 14:17
PROVIDERS: PCP Family Medicine; Visit Provider Hospitalist
DX: J44.1 Chronic obstructive pulmonary disease with (acute) exacerbation (principal)
CPT/HCPCS: 36415; 36600; 80198; 82803

== ENCOUNTER → 2022-01-25 10:42 | Outpatient (BNVA) | payer MEDICAID, SELFPAY | PROVIDERS: PCP Family Medicine; Visit Provider Hospitalist | DX: J44.1 Chronic obstructive pulmonary disease with (acute) exacerbation (principal); J96.12 Chronic respiratory failure with hypercapnia; J96.11 Chronic respiratory failure with hypoxia; F17.210 Nicotine dependence, cigarettes, uncomplicated; Z99.81 Dependence on supplemental oxygen; Z99.11 Dependence on respirator [ventilator] status; Z71.6 Tobacco abuse counseling; Z23 Encounter for immunization | CPT/HCPCS: 90471; 90686; 99212 ==

== ENCOUNTER 2022-02-13 11:18 | Inpatient (IN) | payer MEDICAID, SELFPAY ==
[2022-02-13] VITALS (7 sets, daily range): BP systolic 116–159; BP diastolic 58–89; PULSE 99–120; RESP 17–22; TEMP 36.8–37.1; O2SAT 93–99; BMI 37.5
--- NOTE | ~2022-02-13 | US_ITS ---
EXAMINATION: US VENOUS ULTRASOUND WITH DOPPLER LOWER EXTREMITY, BILATERAL CLINICAL INFORMATION: Swelling COMPARISON: Previous exams most recent May 2021 TECHNIQUE: Ultrasound of the deep veins is performed from the hip to the calf with compression sonography and color and pulse Doppler assessment. Spectral analysis with color-flow imaging is performed. FINDINGS: RIGHT: There is normal venous compression and respiratory variation and augmented flow. The visualized common femoral vein, superficial femoral vein, profunda femoral vein, popliteal vein, and the posterior tibial veins show no evidence of deep venous thrombosis. There is no significant popliteal fossa cyst. LEFT: There is normal venous compression and respiratory variation and augmented flow. The visualized common femoral vein, superficial femoral vein, profunda femoral vein, popliteal vein, and the posterior tibial veins show no evidence of deep venous thrombosis. There is no significant popliteal fossa cyst. The peroneal veins are not well visualized bilaterally. US/US venous duplex LE BI IMPRESSION: No DVT demonstrated in the bilateral lower extremity.
--- NOTE | ~2022-02-13 | XR_ITS ---
EXAMINATION: XR TIBIA AND FIBULA, RIGHT CLINICAL INFORMATION: Right leg swelling and cellulitis COMPARISON: None TECHNIQUE: AP and lateral views of the right tibia and fibula were obtained. FINDINGS: Bone alignment is normal. No fracture or dislocation. Normal joint spaces. Small radiopaque soft tissue foreign bodies in the lateral upper lower leg, largest measuring 2 mm. There is mild soft tissue lateral swelling, particularly over the lateral knee. XR/XR tibia fibula RT 2V IMPRESSION: Small radiopaque soft tissue foreign bodies in the upper lateral lower leg. Soft tissue swelling.
--- NOTE | 2022-02-13 11:57 | ED_ITS ---
HPI - General Adult General Chief complaint: General Medical Stated complaint: masoud leg pain/edema, constipation Time Seen by Provider: 02/13/22 11:22 Source: patient Mode of arrival: ambulatory Limitations: no limitations History of Present Illness HPI narrative: 52 year old female presents to the ED with multiple complaints. She has back pain that was exacerbated with lifting months ago. She states she has now had back pain for one week and swelling to both legs. She has no fever IV drug use, no weight loss, weakness, loss of bowel or bladder function no radiation of the pain down her legs. She has had no falls no history of this problem in the past. She states her normal bowel movement was three days ago which is a chronic problem for her. Right leg has been red she just finished a course of doxycycline but still with redness leg is not tender. Related Data Home Medications Medication Instructions Recorded Confirmed albuterol sulfate 90 mcg/actuation 2 puff inhalation Q4H PRN 12/30/19 02/13/22 aerosol inhaler (ProAir HFA) Shortness Of Breath Or Wheezing loratadine 10 mg tablet (Claritin) 10 mg PO DAILY 12/30/19 02/13/22 montelukast 10 mg tablet 10 mg PO BEDTIME 12/30/19 02/13/22 diltiazem HCl 360 mg capsule,24 1 cap PO DAILY 11/16/20 02/13/22 hr,extended release (Tiadylt ER) roflumilast 500 mcg tablet 1 tab PO DAILY 11/16/20 02/13/22 (Daliresp) rosuvastatin 5 mg tablet 1 tab PO BEDTIME 11/16/20 02/13/22 insulin lispro 100 unit/mL See Protocol subcut TIDAC 12/14/20 02/13/22 subcutaneous solution (Humalog U-100 Insulin) metformin 500 mg tablet,extended 2 tab PO BID 05/18/21 02/13/22 release 24 hr ergocalciferol (vitamin D2) 1,250 1,250 mcg PO QWEEK 06/06/21 02/13/22 mcg (50,000 unit) capsule methadone 10 mg/mL oral concentrate 49 mg PO DAILY 06/06/21 02/13/22 insulin glargine 100 unit/mL 45 unit subcut BEDTIME 06/07/21 02/13/22 subcutaneous solution (Lantus U-100 Insulin) lisinopril 40 mg tablet 1 tab PO DAILY 07/30/21 02/13/22 glecaprevir 100 mg-pibrentasvir 40 3 tab PO DAILY 11/02/21 02/13/22 mg tablet (Mavyret) hydralazine 25 mg tablet 1 tab PO TID 11/02/21 02/13/22 insulin lispro 100 unit/mL 4 unit subcut TIDAC 11/02/21 02/13/22 subcutaneous solution omeprazole 40 mg capsule,delayed 40 mg PO DAILY@0630 11/02/21 02/13/22 release lidocaine 5 % topical patch 1 patch topical DAILY 12/08/21 02/13/22 (Lidoderm) Previous Rx's Medication Instructions Recorded tiotropium bromide 18 mcg capsule 1 cap inhalation DAILY #30 ea 06/25/21 with inhalation device (Spiriva with HandiHaler) arformoterol 15 mcg/2 mL solution 2 ml inhalation Q12H 30 days #120 07/24/21 for nebulization (Brovana) mL budesonide 0.5 mg/2 mL suspension 0.5 mg (2 mL) inhalation BID #120 07/24/21 for nebulization mL gabapentin 300 mg capsule 300 mg PO BID 30 days #60 caps 09/19/21 diclofenac potassium 50 mg tablet 50 mg PO BID 30 days #60 tabs 10/08/21 ondansetron 4 mg disintegrating 4 mg PO Q6-8H PRN nausea and 12/07/21 tablet vomiting #14 tabs bupropion HCl 75 mg tablet 150 mg PO BID 30 days #120 tabs 12/14/21 theophylline 450 mg 450 mg PO Q12H 30 days #60 tabs 12/14/21 tablet,extended release,12 hr ipratropium 0.5 mg-albuterol 3 mg 3 ml PO Q4H PRN for wheezing #540 12/20/21 (2.5 mg base)/3 mL nebulization mL soln salmeterol 50 mcg/dose blister 1 inh inhalation RBID 30 days #60 01/05/22 powder for inhalation (Serevent ea Diskus) simethicone 80 mg chewable tablet 80 mg PO QIDWMHS PRN Abdominal 01/05/22 (Gas Relief (simethicone)) Distention #30 tabs doxycycline monohydrate 100 mg 100 mg PO BID 14 days #28 tabs 01/25/22 tablet Allergies Allergy/AdvReac Type Severity Reaction Status Date / Time No Known Allergies Allergy Verified 01/25/22 10:58 [No Known Allergies*] Review of Systems Review of Systems: Review of systems: General: Patient denies any fever chills recent illness or falls Musculoskeletal: Denies back pain or body aches or other injuries HEENT: denies headache, runny nose, ear pain Respiratory: denies shortness of breath, cough Cardiovascular: no chest pain or palpitations : denies dysuria, frequency Abdomen: no nausea vomiting denies abdominal pain Extremities: no swelling, no pain Skin: no diaphoresis Yes all other systems are reviewed and are negative [facility] Past Medical History Medical History (Updated 02/13/22 @ 14:09 by Sumanth Andujar DO) Abdominal pain Abnormal chest x-ray Acute respiratory failure Aspiration into airway Asthma-COPD overlap syndrome Chronic respiratory failure Chronic respiratory failure Congestive heart failure COPD (chronic obstructive pulmonary disease) COPD exacerbation COPD mixed type Diabetes mellitus Essential hypertension Hyperlipidemia, unspecified Hypertensive cardiovascular disease Hypogammaglobulinemia Leukocytosis Limb swelling Morbid obesity Opioid dependence Poor dentition Pulmonary congestion Pulmonary nodule Rib fractures Status asthmaticus with COPD (chronic obstructive pulmonary disease) Tobacco abuse Type 2 diabetes mellitus Type 2 diabetes mellitus with unspecified complications Vomiting Surgical History H/O tubal ligation Family History Family History Father Diabetes Other Asthma Social History Social History Household Members: Children Household Members Other:: 3 Housing: Apartment Do you presently have visiting nurse or other home services: Yes Unable to assess alcohol history related to: Unknown Alcohol intake: former Patient Tobacco Use Status: Former Tobacco user Tobacco use type: Cigarette Cigarettes Per Day: 1 Years Smoked: 35 e-Cigarette/Vaping Use: Currently Using Second Hand Smoke Exposure: No Substance Use Type: Opiates Advance Directives: Yes Advance Directives on File: Yes Advance Directives Date on File: 06/12/21 service: No Current occupational status: disabled Physical Exam ED Vital Signs: Vital Signs - 24 hr 02/13/22 11:25 02/13/22 12:10 Temperature 98.8 F 98.8 F Pulse Rate 114 H 113 H Respiratory Rate 20 17 Blood Pressure 133/85 120/58 L Pulse Oximetry 93 95 Oxygen Delivery Method Nasal Cannula Nasal Cannula Oxygen Flow Rate 2 BMI result Body Mass Index 37.5 General: Well-appearing well-nourished in no signs of distress HEENT: Normocephalic atraumatic Neck: No signs of JVD, no masses no tenderness or lymphadenopathy Cardiovascular: Regular rate and rhythm Respiratory: Clear to auscultation bilaterally Abdomen: Soft nontender no masses Extremities: Normal pedal pulses 1 + edema bilaterally right leg has Skin: Dry warm no rashes Back: No tenderness full ROM Medications Administered Discontinued Medications Generic Name Dose Route Start Last Admin Trade Name Yaoq PRN Reason Stop Dose Admin Ceftriaxone Sodium 1 gm/ 50 mls @ 100 mls/hr 02/13/22 12:14 02/13/22 13:42 Sodium Chloride IV 02/13/22 12:43 100 mls/hr ONCE ONE Administration Medical Decision Making [facility] Narrative Medical decision making narrative: 52-year-old female with multiple complaints mainly concerned about her back but her right leg does look infected she has already failed outpatient treatment she was on doxycycline for 1 week and she continues to have redness and pain to that side concern for cellulitis I will start the patient on vancomycin and Rocephin. Patient will likely need admission to the hospital I will check labs including lactic and blood cultures. Source or back pain I do not think this is new she has no back pain red flags I do not think there is any need for emergent imaging I will give her some morphine while she is waiting here in the ER. Patient also has severe COPD and is on oxygen currently her oxygen saturation is normal. I will give the patient a L fluid in [place] she does have limited edema to bilateral lower extremities I will check a BNP as well as get an x-ray of her chest. US are negative XR shows a foreign body which is not visualized on the patient she denies having anything underneath her skin. I will continue with admission after failed outpatient treatment. Patient is okay with the plan. Lab Data Result diagrams: 02/13/22 12:30 02/13/22 12:30 Labs: Lab Results 02/13/22 02/13/22 02/13/22 Range/Units 12:30 12:30 12:30 WBC 15.1 H (4.8-10.8) X10*3/uL RBC 3.54 L (4.20-5.50) X10*6/uL Hgb 10.0 L (12.0-16.0) g/dl Hct 33.4 L (37.0-47.0) % MCV 94.4 (80.0-98.0) fL MCH 28.2 (27.0-33.0) pg MCHC 29.9 L (31.0-35.0) g/dl RDW 13.8 (11.0-16.0) % Plt Count 327 (160-400) X10*3/uL MPV 9.0 L (9.4-12.3) fL Immature Gran % (Auto) 0.5 H (0.0-0.4) % Neut % (Auto) 80.2 H (45-73) % Lymph % (Auto) 10.8 L (20-40) % Moca % (Auto) 7.2 (2-11) % Eos % (Auto) 0.9 (0-4) % Baso % (Auto) 0.4 (0-2) % Lymph # (Auto) 1.6 (1.2-4.9) X10*3/uL Moca # (Auto) 1.1 (0.1-1.2) X10*3/uL Eos # (Auto) 0.1 (0.0-0.4) X10*3/uL Baso # (Auto) 0.1 (0.0-0.2) X10*3/uL Abs Immat Gran (auto) 0.07 H (0.00-0.03) X10*3/uL Absolute Neuts (auto) 12.1 H (2.0-8.3) x10*3/uL Absolute Nucleated RBC 0.000 (0.0-0.012) X10*3/uL Nucleated RBC % (auto) 0.0 (0.0-0.2) /100WBC D-Dimer High Sensitivty NG/ML Sodium 142 (135-145) mmol/L Potassium 3.6 (3.3-5.1) mmol/L Chloride 96 (96-108) mmol/L Carbon Dioxide 33 H (22-29) mmol/L Anion Gap 17 (12-20) BUN 16 (9-16) mg/dL Creatinine 0.64 (0.5-1.4) mg/dL Estim Creat Clear Calc 105.0 Estimated GFR > 60 Random Glucose 180 H (60-115) mg/dL Lactic Acid (0.5-2.0) mmol/L Calcium 9.6 (8.4-10.2) mg/dL B-Natriuretic Peptide 12 (<100) pg/mL Influenza Type A (PCR) (Negative) Influenza Type B (PCR) (Negative) RSV RNA Qual (PCR) (Negative) SARS-CoV-2 RNA (RT-PCR) (Negative) 02/13/22 02/13/22 02/13/22 Range/Units 12:30 12:30 13:41 WBC (4.8-10.8) X10*3/uL RBC (4.20-5.50) X10*6/uL Hgb (12.0-16.0) g/dl Hct (37.0-47.0) % MCV (80.0-98.0) fL MCH (27.0-33.0) pg MCHC (31.0-35.0) g/dl RDW (11.0-16.0) % Plt Count (160-400) X10*3/uL MPV (9.4-12.3) fL Immature Gran % (Auto) (0.0-0.4) % Neut % (Auto) (45-73) % Lymph % (Auto) (20-40) % Moca % (Auto) (2-11) % Eos % (Auto) (0-4) % Baso % (Auto) (0-2) % Lymph # (Auto) (1.2-4.9) X10*3/uL Moca # (Auto) (0.1-1.2) X10*3/uL Eos # (Auto) (0.0-0.4) X10*3/uL Baso # (Auto) (0.0-0.2) X10*3/uL Abs Immat Gran (auto) (0.00-0.03) X10*3/uL Absolute Neuts (auto) (2.0-8.3) x10*3/uL Absolute Nucleated RBC (0.0-0.012) X10*3/uL Nucleated RBC % (auto) (0.0-0.2) /100WBC D-Dimer High Sensitivty 546 NG/ML Sodium (135-145) mmol/L Potassium (3.3-5.1) mmol/L Chloride (96-108) mmol/L Carbon Dioxide (22-29) mmol/L Anion Gap (12-20) BUN (9-16) mg/dL Creatinine (0.5-1.4) mg/dL Estim Creat Clear Calc Estimated GFR Random Glucose (60-115) mg/dL Lactic Acid 0.9 (0.5-2.0) mmol/L Calcium (8.4-10.2) mg/dL B-Natriuretic Peptide (<100) pg/mL Influenza Type A (PCR) NEGATIVE (Negative) Influenza Type B (PCR) NEGATIVE (Negative) RSV RNA Qual (PCR) NEGATIVE (Negative) SARS-CoV-2 RNA (RT-PCR) NEGATIVE (Negative) Discharge Plan Discharge Clinical Impression: COPD (chronic obstructive pulmonary disease), Cellulitis Patient Disposition: Admitted As Inpatient Prescriptions: No Action Spiriva with HandiHaler 18 mcg capsule, w/inhalation device 1 cap inhalation DAILY Qty: 30 11RF gabapentin 300 mg capsule 300 mg PO BID 30 Days Qty: 60 3RF diclofenac potassium 50 mg tablet 50 mg PO BID 30 Days Qty: 60 0RF ipratropium-albuterol 0.5 mg-3 mg(2.5 mg base)/3 mL solution for nebulization 3 ml PO Q4H PRN (Reason: for wheezing) Qty: 540 6RF diltiazem HCl [Tiadylt ER] 360 mg capsule,extended release 24 hr 1 cap PO DAILY rosuvastatin 5 mg tablet 1 tab PO BEDTIME roflumilast [Daliresp] 500 mcg tablet 1 tab PO DAILY insulin lispro [Humalog U-100 Insulin] 100 unit/mL solution See Protocol subcut TIDAC Protocol: Insulin Correction Scale Less than or equal to 110 ---- Give (units): 0 111 to 150 Give (units): 0 151 to 200 Give (units): 2 201 to 250 Give (units): 4 251 to 300 Give (units): 6 301 to 350 Give (units): 8 Greater than 350 Give (units): 10 Call MD if Blood Glucose > : 350 metformin 500 mg tablet extended release 24 hr 2 tab PO BID hydralazine 25 mg tablet 1 tab PO TID insulin lispro 100 unit/mL solution 4 unit subcut TIDAC Mavyret 100-40 mg tablet 3 tab PO DAILY omeprazole 40 mg capsule,delayed release(DR/EC) 40 mg PO DAILY@0630 methadone 10 mg/mL Concentrate 49 mg PO DAILY ergocalciferol (vitamin D2) 1,250 mcg (50,000 unit) capsule 1,250 mcg PO QWEEK insulin glargine [Lantus U-100 Insulin] 100 unit/mL solution 45 unit subcut BEDTIME lisinopril 40 mg tablet 1 tab PO DAILY ondansetron 4 mg tablet,disintegrating 4 mg PO Q6-8H PRN (Reason: nausea and vomiting) Qty: 14 0RF lidocaine [Lidoderm] 5 % adhesive patch,medicated 1 patch topical DAILY Serevent Diskus 50 mcg/dose Blister With Device 1 inh inhalation RBID 30 Days Qty: 60 2RF simethicone [Gas Relief (simethicone)] 80 mg Tablet,Chewable 80 mg PO QIDWMHS PRN (Reason: Abdominal Distention) Qty: 30 0RF montelukast 10 mg tablet 10 mg PO BEDTIME albuterol sulfate [ProAir HFA] 90 mcg/actuation HFA aerosol inhaler 2 puff inhalation Q4H PRN (Reason: Shortness Of Breath Or Wheezing) loratadine [Claritin] 10 mg tablet 10 mg PO DAILY Brovana 15 mcg/2 mL solution for nebulization 2 ml inhalation Q12H 30 Days Qty: 120 11RF budesonide 0.5 mg/2 mL suspension for nebulization 0.5 mg inhalation BID Qty: 120 11RF bupropion HCl 75 mg tablet 150 mg PO BID 30 Days Qty: 120 3RF theophylline 450 mg tablet extended release 12 hr 450 mg PO Q12H 30 Days Qty: 60 6RF doxycycline monohydrate 100 mg tablet 100 mg PO BID 14 Days Qty: 28 0RF
--- NOTE | 2022-02-13 12:16 | ECG_ITS ---
Test Reason : BACK PAIN Blood Pressure : / mmHG Vent. Rate : 104 BPM Atrial Rate : 104 BPM P-R Int : 146 ms QRS Dur : 106 ms QT Int : 378 ms P-R-T Axes : 054 024 049 degrees QTc Int : 497 ms Sinus tachycardia Possible Left atrial enlargement RSR' or QR pattern in V1 suggests right ventricular conduction delay Borderline ECG When compared with ECG of 21-DEC-2021 17:25, No significant changes seen Referred By: Sumanht Andujar Electronically Signed By:BLANCO STUBBS MD
--- NOTE | 2022-02-13 12:29 | PHA.MEDREC ---
Pharmacy Consult ? Medication Reconciliation Pharmacy has completed the medication reconciliation.
[2022-02-13 12:36] LABS: MANUAL DIFF FLAG NO
[2022-02-13 12:38] LABS: Basophils Absolute Auto 0.1 X10*3/uL (0.0-0.2); Basophils Percent Auto 0.4 % (0-2); Eosinophils Absolute Auto 0.1 X10*3/uL (0.0-0.4); Eosinophils Percent Auto 0.9 % (0-4); Hematocrit 33.4 % (37.0-47.0); Imm Gran Abs Auto 0.07 X10*3/uL (0.00-0.03); Imm Gran Pct Auto 0.5 % (0.0-0.4); Lymphocytes Absolute Auto 1.6 X10*3/uL (1.2-4.9); Lymphocytes Percent Auto 10.8 % (20-40); Mean Corpuscular HGB Conc 29.9 g/dl (31.0-35.0); Mean Corpuscular Hemoglobin 28.2 pg (27.0-33.0); Mean Corpuscular Volume 94.4 fL (80.0-98.0); Monocytes Absolute Auto 1.1 X10*3/uL (0.1-1.2); Monocytes Percent Auto 7.2 % (2-11); Neutrophils Absolute Auto 12.1 x10*3/uL (2.0-8.3); Neutrophils Percent Auto 80.2 % (45-73); Platelet Count 327 X10*3/uL (160-400); Red Blood Count 3.54 X10*6/uL (4.20-5.50); Red Cell Distribution Width 13.8 % (11.0-16.0); White Blood Count 15.1 X10*3/uL (4.8-10.8)
[2022-02-13 12:53] LABS: Anion Gap 17 (12-20); Blood Urea Nitrogen 16 mg/dL (9-16); Calcium 9.6 mg/dL (8.4-10.2); Carbon Dioxide 33 mmol/L (22-29); Chloride 96 mmol/L (96-108); D Dimer High Sensitivity 546 NG/ML; Estimated Glomerular Filt Rate > 60; Glucose Random 180 mg/dL (60-115); Potassium 3.6 mmol/L (3.3-5.1); Sodium 142 mmol/L (135-145)
[2022-02-13 13:00] LABS: B Type Natriuretic Peptide 12 pg/mL (<100)
[2022-02-13 13:21] LABS: Influenza A PCR NEGATIVE (Negative); Influenza B PCR NEGATIVE (Negative); Resp Syncy Virus RNA Qual PCR NEGATIVE (Negative); SARS COV2 PCR INHOUSE NEGATIVE (Negative)
--- NOTE | 2022-02-13 13:38 | PC.NURSE ---
patient is a difficult stick, this RN and now 2nd tech attempting to get 2nd set of blood cultures prior to abt
[2022-02-13] MEDS: cefTRIAXone sodium 1 GM in 0.9 % Sodium Chloride 50 ML IV (13:42)
[2022-02-13 13:58] LABS: Lactic Acid 0.9 mmol/L (0.5-2.0)
--- NOTE | 2022-02-13 14:13 | ED_ITS ---
HPI - General Adult General Chief complaint: General Medical Stated complaint: masoud leg pain/edema, constipation Time Seen by Provider: 02/13/22 11:22 Source: patient Mode of arrival: ambulatory Limitations: no limitations Related Data Home Medications Medication Instructions Recorded Confirmed albuterol sulfate 90 mcg/actuation 2 puff inhalation Q4H PRN 12/30/19 02/13/22 aerosol inhaler (ProAir HFA) Shortness Of Breath Or Wheezing loratadine 10 mg tablet (Claritin) 10 mg PO DAILY 12/30/19 02/13/22 montelukast 10 mg tablet 10 mg PO BEDTIME 12/30/19 02/13/22 diltiazem HCl 360 mg capsule,24 1 cap PO DAILY 11/16/20 02/13/22 hr,extended release (Tiadylt ER) roflumilast 500 mcg tablet 1 tab PO DAILY 11/16/20 02/13/22 (Daliresp) rosuvastatin 5 mg tablet 1 tab PO BEDTIME 11/16/20 02/13/22 insulin lispro 100 unit/mL See Protocol subcut TIDAC 12/14/20 02/13/22 subcutaneous solution (Humalog U-100 Insulin) metformin 500 mg tablet,extended 2 tab PO BID 05/18/21 02/13/22 release 24 hr ergocalciferol (vitamin D2) 1,250 1,250 mcg PO QWEEK 06/06/21 02/13/22 mcg (50,000 unit) capsule methadone 10 mg/mL oral concentrate 49 mg PO DAILY 06/06/21 02/13/22 insulin glargine 100 unit/mL 45 unit subcut BEDTIME 06/07/21 02/13/22 subcutaneous solution (Lantus U-100 Insulin) lisinopril 40 mg tablet 1 tab PO DAILY 07/30/21 02/13/22 glecaprevir 100 mg-pibrentasvir 40 3 tab PO DAILY 11/02/21 02/13/22 mg tablet (Mavyret) hydralazine 25 mg tablet 1 tab PO TID 11/02/21 02/13/22 insulin lispro 100 unit/mL 4 unit subcut TIDAC 11/02/21 02/13/22 subcutaneous solution omeprazole 40 mg capsule,delayed 40 mg PO DAILY@0630 11/02/21 02/13/22 release lidocaine 5 % topical patch 1 patch topical DAILY 12/08/21 02/13/22 (Lidoderm) Previous Rx's Medication Instructions Recorded tiotropium bromide 18 mcg capsule 1 cap inhalation DAILY #30 ea 06/25/21 with inhalation device (Spiriva with HandiHaler) arformoterol 15 mcg/2 mL solution 2 ml inhalation Q12H 30 days #120 07/24/21 for nebulization (Brovana) mL budesonide 0.5 mg/2 mL suspension 0.5 mg (2 mL) inhalation BID #120 07/24/21 for nebulization mL gabapentin 300 mg capsule 300 mg PO BID 30 days #60 caps 09/19/21 diclofenac potassium 50 mg tablet 50 mg PO BID 30 days #60 tabs 10/08/21 ondansetron 4 mg disintegrating 4 mg PO Q6-8H PRN nausea and 12/07/21 tablet vomiting #14 tabs bupropion HCl 75 mg tablet 150 mg PO BID 30 days #120 tabs 12/14/21 theophylline 450 mg 450 mg PO Q12H 30 days #60 tabs 12/14/21 tablet,extended release,12 hr ipratropium 0.5 mg-albuterol 3 mg 3 ml PO Q4H PRN for wheezing #540 12/20/21 (2.5 mg base)/3 mL nebulization mL soln salmeterol 50 mcg/dose blister 1 inh inhalation RBID 30 days #60 01/05/22 powder for inhalation (Serevent ea Diskus) simethicone 80 mg chewable tablet 80 mg PO QIDWMHS PRN Abdominal 01/05/22 (Gas Relief (simethicone)) Distention #30 tabs doxycycline monohydrate 100 mg 100 mg PO BID 14 days #28 tabs 01/25/22 tablet Allergies Allergy/AdvReac Type Severity Reaction Status Date / Time No Known Allergies Allergy Verified 01/25/22 10:58 [No Known Allergies*] [facility] Past Medical History Medical History (Updated 02/13/22 @ 14:09 by Sumanth Andujar DO) Abdominal pain Abnormal chest x-ray Acute respiratory failure Aspiration into airway Asthma-COPD overlap syndrome Chronic respiratory failure Chronic respiratory failure Congestive heart failure COPD (chronic obstructive pulmonary disease) COPD exacerbation COPD mixed type Diabetes mellitus Essential hypertension Hyperlipidemia, unspecified Hypertensive cardiovascular disease Hypogammaglobulinemia Leukocytosis Limb swelling Morbid obesity Opioid dependence Poor dentition Pulmonary congestion Pulmonary nodule Rib fractures Status asthmaticus with COPD (chronic obstructive pulmonary disease) Tobacco abuse Type 2 diabetes mellitus Type 2 diabetes mellitus with unspecified complications Vomiting Surgical History H/O tubal ligation Family History Family History Father Diabetes Other Asthma Social History Social History Household Members: Children Household Members Other:: 3 Housing: Apartment Do you presently have visiting nurse or other home services: Yes Unable to assess alcohol history related to: Unknown Alcohol intake: former Patient Tobacco Use Status: Former Tobacco user Tobacco use type: Cigarette Cigarettes Per Day: 1 Years Smoked: 35 e-Cigarette/Vaping Use: Currently Using Second Hand Smoke Exposure: No Substance Use Type: Opiates Advance Directives: Yes Advance Directives on File: Yes Advance Directives Date on File: 06/12/21 service: No Current occupational status: disabled Physical Exam ED Vital Signs: Vital Signs - 24 hr 02/13/22 11:25 02/13/22 12:10 Temperature 98.8 F 98.8 F Pulse Rate 114 H 113 H Respiratory Rate 20 17 Blood Pressure 133/85 120/58 L Pulse Oximetry 93 95 Oxygen Delivery Method Nasal Cannula Nasal Cannula Oxygen Flow Rate 2 BMI result Body Mass Index 37.5 Medications Administered Discontinued Medications Generic Name Dose Route Start Last Admin Trade Name Freq PRN Reason Stop Dose Admin Ceftriaxone Sodium 1 gm/ 50 mls @ 100 mls/hr 02/13/22 12:14 02/13/22 13:42 Sodium Chloride IV 02/13/22 12:43 100 mls/hr ONCE ONE Administration Medical Decision Making Lab Data Result diagrams: 02/13/22 12:30 02/13/22 12:30 Labs: Lab Results 02/13/22 02/13/22 02/13/22 Range/Units 12:30 12:30 12:30 WBC 15.1 H (4.8-10.8) X10*3/uL RBC 3.54 L (4.20-5.50) X10*6/uL Hgb 10.0 L (12.0-16.0) g/dl Hct 33.4 L (37.0-47.0) % MCV 94.4 (80.0-98.0) fL MCH 28.2 (27.0-33.0) pg MCHC 29.9 L (31.0-35.0) g/dl RDW 13.8 (11.0-16.0) % Plt Count 327 (160-400) X10*3/uL MPV 9.0 L (9.4-12.3) fL Immature Gran % (Auto) 0.5 H (0.0-0.4) % Neut % (Auto) 80.2 H (45-73) % Lymph % (Auto) 10.8 L (20-40) % [place] % (Auto) 7.2 (2-11) % Eos % (Auto) 0.9 (0-4) % Baso % (Auto) 0.4 (0-2) % Lymph # (Auto) 1.6 (1.2-4.9) X10*3/uL [place] # (Auto) 1.1 (0.1-1.2) X10*3/uL Eos # (Auto) 0.1 (0.0-0.4) X10*3/uL Baso # (Auto) 0.1 (0.0-0.2) X10*3/uL Abs Immat Gran (auto) 0.07 H (0.00-0.03) X10*3/uL Absolute Neuts (auto) 12.1 H (2.0-8.3) x10*3/uL Absolute Nucleated RBC 0.000 (0.0-0.012) X10*3/uL Nucleated RBC % (auto) 0.0 (0.0-0.2) /100WBC D-Dimer High Sensitivty NG/ML Sodium 142 (135-145) mmol/L Potassium 3.6 (3.3-5.1) mmol/L Chloride 96 (96-108) mmol/L Carbon Dioxide 33 H (22-29) mmol/L Anion Gap 17 (12-20) BUN 16 (9-16) mg/dL Creatinine 0.64 (0.5-1.4) mg/dL Estim Creat Clear Calc 105.0 Estimated GFR > 60 Random Glucose 180 H (60-115) mg/dL Lactic Acid (0.5-2.0) mmol/L Calcium 9.6 (8.4-10.2) mg/dL B-Natriuretic Peptide 12 (<100) pg/mL Influenza Type A (PCR) (Negative) Influenza Type B (PCR) (Negative) RSV RNA Qual (PCR) (Negative) SARS-CoV-2 RNA (RT-PCR) (Negative) 02/13/22 02/13/22 02/13/22 Range/Units 12:30 12:30 13:41 WBC (4.8-10.8) X10*3/uL RBC (4.20-5.50) X10*6/uL Hgb (12.0-16.0) g/dl Hct (37.0-47.0) % MCV (80.0-98.0) fL MCH (27.0-33.0) pg MCHC (31.0-35.0) g/dl RDW (11.0-16.0) % Plt Count (160-400) X10*3/uL MPV (9.4-12.3) fL Immature Gran % (Auto) (0.0-0.4) % Neut % (Auto) (45-73) % Lymph % (Auto) (20-40) % [place] % (Auto) (2-11) % Eos % (Auto) (0-4) % Baso % (Auto) (0-2) % Lymph # (Auto) (1.2-4.9) X10*3/uL [place] # (Auto) (0.1-1.2) X10*3/uL Eos # (Auto) (0.0-0.4) X10*3/uL Baso # (Auto) (0.0-0.2) X10*3/uL Abs Immat Gran (auto) (0.00-0.03) X10*3/uL Absolute Neuts (auto) (2.0-8.3) x10*3/uL Absolute Nucleated RBC (0.0-0.012) X10*3/uL Nucleated RBC % (auto) (0.0-0.2) /100WBC D-Dimer High Sensitivty 546 NG/ML Sodium (135-145) mmol/L Potassium (3.3-5.1) mmol/L Chloride (96-108) mmol/L Carbon Dioxide (22-29) mmol/L Anion Gap (12-20) BUN (9-16) mg/dL Creatinine (0.5-1.4) mg/dL Estim Creat Clear Calc Estimated GFR Random Glucose (60-115) mg/dL Lactic Acid 0.9 (0.5-2.0) mmol/L Calcium (8.4-10.2) mg/dL B-Natriuretic Peptide (<100) pg/mL Influenza Type A (PCR) NEGATIVE (Negative) Influenza Type B (PCR) NEGATIVE (Negative) RSV RNA Qual (PCR) NEGATIVE (Negative) SARS-CoV-2 RNA (RT-PCR) NEGATIVE (Negative) ECG Data Attestation: I personally reviewed and interpreted this ECG as follows: Prior ECG tracings: not available for review Interpretation: Rate 104 sinus tachycardia no signs of ischemia Discharge Plan Discharge Clinical Impression: COPD (chronic obstructive pulmonary disease), Cellulitis Patient Disposition: Admitted As Inpatient
--- NOTE | 2022-02-13 14:56 | ED_ITS ---
HPI - General Adult General Chief complaint: General Medical Stated complaint: masoud leg pain/edema, constipation Time Seen by Provider: 02/13/22 11:22 Source: patient Mode of arrival: ambulatory Limitations: no limitations Related Data Home Medications Medication Instructions Recorded Confirmed albuterol sulfate 90 mcg/actuation 2 puff inhalation Q4H PRN 12/30/19 02/13/22 aerosol inhaler (ProAir HFA) Shortness Of Breath Or Wheezing loratadine 10 mg tablet (Claritin) 10 mg PO DAILY 12/30/19 02/13/22 montelukast 10 mg tablet 10 mg PO BEDTIME 12/30/19 02/13/22 diltiazem HCl 360 mg capsule,24 1 cap PO DAILY 11/16/20 02/13/22 hr,extended release (Tiadylt ER) roflumilast 500 mcg tablet 1 tab PO DAILY 11/16/20 02/13/22 (Daliresp) rosuvastatin 5 mg tablet 1 tab PO BEDTIME 11/16/20 02/13/22 insulin lispro 100 unit/mL See Protocol subcut TIDAC 12/14/20 02/13/22 subcutaneous solution (Humalog U-100 Insulin) metformin 500 mg tablet,extended 2 tab PO BID 05/18/21 02/13/22 release 24 hr ergocalciferol (vitamin D2) 1,250 1,250 mcg PO QWEEK 06/06/21 02/13/22 mcg (50,000 unit) capsule methadone 10 mg/mL oral concentrate 49 mg PO DAILY 06/06/21 02/13/22 lisinopril 40 mg tablet 1 tab PO DAILY 07/30/21 02/13/22 glecaprevir 100 mg-pibrentasvir 40 3 tab PO DAILY 11/02/21 02/13/22 mg tablet (Mavyret) hydralazine 25 mg tablet 1 tab PO TID 11/02/21 02/13/22 insulin lispro 100 unit/mL 4 unit subcut TIDAC 11/02/21 02/13/22 subcutaneous solution omeprazole 40 mg capsule,delayed 40 mg PO DAILY@0630 11/02/21 02/13/22 release lidocaine 5 % topical patch 1 patch topical DAILY 12/08/21 02/13/22 (Lidoderm) Previous Rx's Medication Instructions Recorded tiotropium bromide 18 mcg capsule 1 cap inhalation DAILY #30 ea 06/25/21 with inhalation device (Spiriva with HandiHaler) arformoterol 15 mcg/2 mL solution 2 ml inhalation Q12H 30 days #120 07/24/21 for nebulization (Brovana) mL budesonide 0.5 mg/2 mL suspension 0.5 mg (2 mL) inhalation BID #120 07/24/21 for nebulization mL gabapentin 300 mg capsule 300 mg PO BID 30 days #60 caps 09/19/21 diclofenac potassium 50 mg tablet 50 mg PO BID 30 days #60 tabs 10/08/21 ondansetron 4 mg disintegrating 4 mg PO Q6-8H PRN nausea and 12/07/21 tablet vomiting #14 tabs bupropion HCl 75 mg tablet 150 mg PO BID 30 days #120 tabs 12/14/21 theophylline 450 mg 450 mg PO Q12H 30 days #60 tabs 12/14/21 tablet,extended release,12 hr ipratropium 0.5 mg-albuterol 3 mg 3 ml PO Q4H PRN for wheezing #540 12/20/21 (2.5 mg base)/3 mL nebulization mL soln salmeterol 50 mcg/dose blister 1 inh inhalation RBID 30 days #60 01/05/22 powder for inhalation (Serevent ea Diskus) simethicone 80 mg chewable tablet 80 mg PO QIDWMHS PRN Abdominal 01/05/22 (Gas Relief (simethicone)) Distention #30 tabs amoxicillin 500 mg capsule 500 mg PO Q8H #21 caps 02/18/22 insulin glargine 100 unit/mL 35 unit (0.35 mL) subcut BEDTIME 02/18/22 subcutaneous solution (Lantus #10 mL U-100 Insulin) polyethylene glycol 3350 17 17 g PO DAILY #119 grams 02/18/22 gram/dose oral powder (Miralax) Allergies Allergy/AdvReac Type Severity Reaction Status Date / Time No Known Allergies Allergy Verified 01/25/22 10:58 [No Known Allergies*] [facility] Past Medical History Medical History Abdominal pain Abnormal chest x-ray Acute respiratory failure Aspiration into airway Asthma-COPD overlap syndrome Chronic constipation Chronic respiratory failure Chronic respiratory failure Congestive heart failure COPD (chronic obstructive pulmonary disease) COPD exacerbation COPD mixed type Diabetes mellitus Essential hypertension Hyperlipidemia, unspecified Hypertensive cardiovascular disease Hypogammaglobulinemia Leukocytosis Limb swelling Morbid obesity Opioid dependence Poor dentition Pulmonary congestion Pulmonary nodule Rib fractures Status asthmaticus with COPD (chronic obstructive pulmonary disease) Tobacco abuse Type 2 diabetes mellitus Type 2 diabetes mellitus with unspecified complications Vomiting Surgical History H/O tubal ligation Family History Family History Father Diabetes Other Asthma Social History Social History Household Members: Children Household Members Other:: 3 Housing: Apartment Do you presently have visiting nurse or other home services: Yes (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, 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 [employer]) Unable to assess alcohol history related to: Unknown Alcohol intake: former Patient Tobacco Use Status: Former Tobacco user Quit Date: last admission January 2022 Tobacco use type: Cigarette Cigarettes Per Day: 1 Years Smoked: 35 e-Cigarette/Vaping Use: Currently Using Second Hand Smoke Exposure: No Substance Use Type: Opiates Advance Directives Date on File: 06/12/21 service: No Current occupational status: disabled Physical Exam ED Vital Signs: Vital Signs - 24 hr 02/13/22 11:25 02/13/22 12:10 02/13/22 14:32 Temperature 98.8 F 98.8 F Pulse Rate 114 H 113 H 107 H Respiratory Rate 20 17 22 H Blood Pressure 133/85 120/58 L 159/89 H Pulse Oximetry 93 95 94 Oxygen Delivery Method Nasal Cannula Nasal Cannula Nasal Cannula Oxygen Flow Rate 2 2 02/13/22 14:44 Temperature 98.2 F Pulse Rate 107 H Respiratory Rate 21 H Blood Pressure 159/89 H Pulse Oximetry 98 Oxygen Delivery Method Room Air Oxygen Flow Rate BMI result Body Mass Index 37.5 Medications Administered Discontinued Medications Generic Name Dose Route Start Last Admin Trade Name Freq PRN Reason Stop Dose Admin Acetaminophen 650 mg 02/13/22 15:50 02/13/22 23:56 Acetaminophen 325 Mg Tablet PO 650 mg Q6H PRN Administration Pain, Mild (Pain Scale 1-3) Albuterol/Ipratropium 3 ml 02/13/22 15:41 02/18/22 03:27 Albuterol/Iprat 2.5/0.5mg 3 Ml Ampul.Neb INHALE 3 ml RQ4H PRN Administration sob Amoxicillin 500 mg 02/18/22 09:45 02/18/22 10:30 Amoxicillin 500 Mg Capsule PO 500 mg Q8H ANA Administration Atorvastatin Calcium 10 mg 02/14/22 09:00 02/18/22 07:59 Atorvastatin Calcium 10 Mg Tablet PO 10 mg DAILY ANA Administration Bupropion HCl 150 mg 02/13/22 21:00 02/18/22 08:02 Bupropion Hcl 75 Mg Tablet PO 150 mg BID ANA Administration Diltiazem HCl 360 mg 02/14/22 09:00 02/18/22 08:00 Diltiazem Hcl Cd 180 Mg Cap.Er.24h PO 360 mg DAILY ANA Administration Protocol Enoxaparin Sodium 40 mg 02/13/22 16:00 02/17/22 14:57 Enoxaparin Sodium 40 Mg/0.4 Ml Syringe SUBCUT 40 mg Q24H ANA Administration Gabapentin 300 mg 02/13/22 21:00 02/18/22 08:00 Gabapentin 300 Mg Capsule PO 300 mg BID ANA Administration Hydralazine HCl 25 mg 02/13/22 21:00 02/18/22 08:01 Hydralazine Hcl 25 Mg Tablet PO 25 mg TID ANA Administration Protocol Hydroxyzine HCl 25 mg 02/15/22 20:11 02/15/22 20:54 Hydroxyzine Hcl 25 Mg Tablet PO 02/15/22 20:12 25 mg ONCE ONE Administration Ceftriaxone Sodium 1 gm/ 50 mls @ 100 mls/hr 02/13/22 12:14 02/13/22 14:30 Sodium Chloride IV 02/13/22 12:43 Infused ONCE ONE Infusion Vancomycin HCl 2,000 mg in 520 mls @ 260 mls/hr 02/13/22 12:45 02/13/22 16:35 Vancomycin/Ns IV 02/13/22 14:44 Infused ONCE ONE Infusion Vancomycin HCl 1,000 mg/ 270 mls @ 270 mls/hr 02/14/22 03:00 02/14/22 04:08 Sodium Chloride IV Infused Q12H ANA Infusion Clindamycin Phosphate 600 mg in 50 mls @ 100 mls/hr 02/13/22 16:00 02/18/22 09:48 Cleocin IV Infused Q8H ANA Infusion Vancomycin HCl 1,250 mg/ 250 mls @ 166.667 mls/hr 02/14/22 15:00 02/15/22 04:16 Sodium Chloride IV Infused Q12H ANA Infusion Vancomycin HCl 1,500 mg/ 500 mls @ 333.333 mls/hr 02/15/22 15:00 02/17/22 07:21 Sodium Chloride IV Not Given Q12H ANA Vancomycin HCl 1,250 mg/ 250 mls @ 166.667 mls/hr 02/16/22 15:00 02/16/22 20:18 Sodium Chloride IV Infused Q8H ANA Infusion Vancomycin HCl 1,250 mg/ 250 mls @ 166.667 mls/hr 02/17/22 04:00 02/17/22 14:18 Sodium Chloride IV Infused Q8H ANA Infusion Ibuprofen 400 mg 02/14/22 08:21 02/18/22 10:29 Ibuprofen 400 Mg Tablet PO 400 mg Q6H PRN Administration Pain, Moderate (Pain Scale 4-6 Insulin Glargine 30 unit 02/13/22 15:40 02/13/22 16:34 Insulin Glargine,Hum.Rec.Anlog 100 Unit/Ml 10 Ml Vial SUBCUT 02/13/22 15:41 30 unit ONCE ONE Administration Insulin Glargine 45 unit 02/15/22 21:00 02/15/22 21:02 Insulin Glargine,Hum.Rec.Anlog 100 Unit/Ml 10 Ml Vial SUBCUT 45 unit BEDTIME ANA Administration Insulin Glargine 35 unit 02/16/22 21:00 02/17/22 20:55 Insulin Glargine,Hum.Rec.Anlog 100 Unit/Ml 10 Ml Vial SUBCUT 35 unit BEDTIME ANA Administration Insulin Human Lispro 4 unit 02/13/22 16:30 02/18/22 12:06 Insulin Lispro 100 Unit/Ml 3 Ml Vial SUBCUT 4 unit TIDAC [facility] Administration Insulin Human Lispro 0 unit 02/13/22 16:30 02/18/22 11:33 Insulin Lispro 100 Unit/Ml 3 Ml Vial SUBCUT Not Given QIDACHS [facility] Protocol Lactulose 20 gm 02/14/22 09:38 02/14/22 11:52 Lactulose 20 Gm/30 Ml Solution PO 02/14/22 09:39 20 gm ONCE ONE Administration Lidocaine 1 patch 02/14/22 09:00 02/18/22 08:01 Lidocaine 4 % Patch Adh..Patch TRANSDERMA 1 patch DAILY ANA Administration Protocol Lisinopril 40 mg 02/14/22 09:00 02/18/22 08:00 Lisinopril 40 Mg Tablet PO 40 mg DAILY ANA Administration Protocol Loratadine 10 mg 02/14/22 09:00 02/18/22 07:59 Loratadine 10 Mg Tablet PO 10 mg DAILY ANA Administration Metformin HCl 1,000 mg 02/13/22 21:00 02/18/22 08:00 Metformin Hcl Er 500 Mg Tab.Er.24h PO Not Given BID ANA Methadone HCl 50 mg 02/14/22 09:00 02/18/22 07:56 Methadone Hcl 20 Mg/2 Ml Oral.Conc PO 50 mg DAILY ANA Administration Montelukast Sodium 10 mg 02/13/22 21:00 02/17/22 20:57 Montelukast Sodium 10 Mg Tablet PO 10 mg BEDTIME ANA Administration Omeprazole 40 mg 02/14/22 06:30 02/18/22 05:52 Omeprazole 40 Mg Capsule. PO 40 mg DAILY@0630 ANA Administration Ondansetron HCl 4 mg 02/13/22 15:50 02/17/22 21:19 Ondansetron Hcl 4 Mg/2 Ml Vial IVPUSH 4 mg Q8H PRN Administration Nausea and Vomiting Polyethylene Glycol 17 gm 02/14/22 15:15 02/18/22 08:01 Polyethylene Glycol 3350 17 Gm Powd.Pack PO 17 gm DAILY ANA Administration Salmeterol Xinafoate 1 puff 02/13/22 20:00 02/18/22 08:44 Salmeterol Xinafoate 50 Mcg Blst.W.Dev INHALE 1 puff RBID ANA Administration Simethicone 80 mg 02/13/22 15:34 02/18/22 14:38 Simethicone 80 Mg Tab.Chew PO 80 mg QIDWMHS PRN Administration Abdominal Distention Sodium Chloride 3 ml 02/13/22 16:00 02/18/22 08:01 0.9 % Sodium Chloride Flush 3 Ml Syringe IVFLUSH 3 ml QSHIFT ANA Administration Theophylline 450 mg 02/13/22 21:00 02/18/22 07:57 Theophylline Anhydrous Er 300 Mg Tab.Er.12h PO 450 mg Q12H [facility] Administration Tiotropium [place] 1 puff 02/14/22 08:00 02/18/22 08:44 Tiotropium [place] 18 Mcg Cap.W.Dev INHALE 1 puff RDAILY [facility] Administration Medical Decision Making Lab Data Result diagrams: 02/15/22 10:23 02/18/22 06:40 Labs: Lab Results 02/13/22 02/13/22 02/13/22 Range/Units 12:30 12:30 12:30 WBC 15.1 H (4.8-10.8) X10*3/uL RBC 3.54 L (4.20-5.50) X10*6/uL Hgb 10.0 L (12.0-16.0) g/dl Hct 33.4 L (37.0-47.0) % MCV 94.4 (80.0-98.0) fL MCH 28.2 (27.0-33.0) pg MCHC 29.9 L (31.0-35.0) g/dl RDW 13.8 (11.0-16.0) % Plt Count 327 (160-400) X10*3/uL MPV 9.0 L (9.4-12.3) fL Immature Gran % (Auto) 0.5 H (0.0-0.4) % Neut % (Auto) 80.2 H (45-73) % Lymph % (Auto) 10.8 L (20-40) % [place] % (Auto) 7.2 (2-11) % Eos % (Auto) 0.9 (0-4) % Baso % (Auto) 0.4 (0-2) % Lymph # (Auto) 1.6 (1.2-4.9) X10*3/uL [place] # (Auto) 1.1 (0.1-1.2) X10*3/uL Eos # (Auto) 0.1 (0.0-0.4) X10*3/uL Baso # (Auto) 0.1 (0.0-0.2) X10*3/uL Abs Immat Gran (auto) 0.07 H (0.00-0.03) X10*3/uL Absolute Neuts (auto) 12.1 H (2.0-8.3) x10*3/uL Absolute Nucleated RBC 0.000 (0.0-0.012) X10*3/uL Nucleated RBC % (auto) 0.0 (0.0-0.2) /100WBC D-Dimer High Sensitivty NG/ML Sodium 142 (135-145) mmol/L Potassium 3.6 (3.3-5.1) mmol/L Chloride 96 (96-108) mmol/L Carbon Dioxide 33 H (22-29) mmol/L Anion Gap 17 (12-20) BUN 16 (9-16) mg/dL Creatinine 0.64 (0.5-1.4) mg/dL Estim Creat Clear Calc 105.0 Estimated GFR > 60 Random Glucose 180 H (60-115) mg/dL Lactic Acid (0.5-2.0) mmol/L Calcium 9.6 (8.4-10.2) mg/dL B-Natriuretic Peptide 12 (<100) pg/mL Influenza Type A (PCR) (Negative) Influenza Type B (PCR) (Negative) RSV RNA Qual (PCR) (Negative) SARS-CoV-2 RNA (RT-PCR) (Negative) 02/13/22 02/13/22 02/13/22 Range/Units 12:30 12:30 13:41 WBC (4.8-10.8) X10*3/uL RBC (4.20-5.50) X10*6/uL Hgb (12.0-16.0) g/dl Hct (37.0-47.0) % MCV (80.0-98.0) fL MCH (27.0-33.0) pg MCHC (31.0-35.0) g/dl RDW (11.0-16.0) % Plt Count (160-400) X10*3/uL MPV (9.4-12.3) fL Immature Gran % (Auto) (0.0-0.4) % Neut % (Auto) (45-73) % Lymph % (Auto) (20-40) % [place] % (Auto) (2-11) % Eos % (Auto) (0-4) % Baso % (Auto) (0-2) % Lymph # (Auto) (1.2-4.9) X10*3/uL [place] # (Auto) (0.1-1.2) X10*3/uL Eos # (Auto) (0.0-0.4) X10*3/uL Baso # (Auto) (0.0-0.2) X10*3/uL Abs Immat Gran (auto) (0.00-0.03) X10*3/uL Absolute Neuts (auto) (2.0-8.3) x10*3/uL Absolute Nucleated RBC (0.0-0.012) X10*3/uL Nucleated RBC % (auto) (0.0-0.2) /100WBC D-Dimer High Sensitivty 546 NG/ML Sodium (135-145) mmol/L Potassium (3.3-5.1) mmol/L Chloride (96-108) mmol/L Carbon Dioxide (22-29) mmol/L Anion Gap (12-20) BUN (9-16) mg/dL Creatinine (0.5-1.4) mg/dL Estim Creat Clear Calc Estimated GFR Random Glucose (60-115) mg/dL Lactic Acid 0.9 (0.5-2.0) mmol/L Calcium (8.4-10.2) mg/dL B-Natriuretic Peptide (<100) pg/mL Influenza Type A (PCR) NEGATIVE (Negative) Influenza Type B (PCR) NEGATIVE (Negative) RSV RNA Qual (PCR) NEGATIVE (Negative) SARS-CoV-2 RNA (RT-PCR) NEGATIVE (Negative) Discharge Plan Discharge Clinical Impression: COPD (chronic obstructive pulmonary disease), Cellulitis Patient Disposition: Admitted As Inpatient Interventions: Admission Worksheet (ED) Last Done: 02/14/22 20:16 Discharge Date/Time: 02/14/22 20:17
--- NOTE | 2022-02-13 15:49 | P.HPHOSP_ITS ---
History of Present Illness Date of Service: 02/13/22 Attending physician on admission: Vel Ramires Chief Complaint: Right leg redness Pt is a 52-year-old female with a PMH of asthma-COPD overlap syndrome, chronic respiratory failure on 2.5L baseline oxygen, insulin-dependent DM2, HTN, and HLD who presents to the ED complaining of right leg redness and swelling. Pt first made these complaints to her pulminologist who prescribed her doxycycline on 01/25/22. She completed this course of abx without resolution of her symptoms. She visited her PCP earlier today about her leg and he sent her to the ED for IV abx. Pt denies F/C, N/V, diaphoresis. Pt also complains about lower back pain, w hich first began some weeks ago after falling on her knees at home and made worse some weeks later when she bent over to pick something up. Back pain has been particularly bad for the past week and located primarily on both sides of her back. She denies saddle anesthisia, change in bowel or bladder function, new numbness or tingling in legs. She denies chest pain/pressure, palpitations, SOB. No abdominal pain. In the ED pt's labs were significant for chronic leukocytosis at 15.1. Venous duplex ultrasound showed no sign of DVT in the bilateral lower extremity, and x- ray of right tibia and fibula found small radiopaque soft tissue foreign bodies in the upper lateral lower leg and soft tissue swelling. Blood cultures pending. Pt will be admitted to the hospital for treatment of right leg cellulitis that failed outpatient therapy and now requires IV abx. Review of Systems Review of Systems: Right leg redness and swelling Lower back pain Denies F/C, N/V No right leg pain Yes all other systems are reviewed and are negative [facility] Medical History Abdominal pain Abnormal chest x-ray Acute respiratory failure Aspiration into airway Asthma-COPD overlap syndrome Chronic respiratory failure Chronic respiratory failure Congestive heart failure COPD (chronic obstructive pulmonary disease) COPD exacerbation COPD mixed type Diabetes mellitus Essential hypertension Hyperlipidemia, unspecified Hypertensive cardiovascular disease Hypogammaglobulinemia Leukocytosis Limb swelling Morbid obesity Opioid dependence Poor dentition Pulmonary congestion Pulmonary nodule Rib fractures Status asthmaticus with COPD (chronic obstructive pulmonary disease) Tobacco abuse Type 2 diabetes mellitus Type 2 diabetes mellitus with unspecified complications Vomiting Family History Father Diabetes Other Asthma Surgical History H/O tubal ligation Social History Household Members: Children Household Members Other:: 3 Housing: Apartment Do you presently have visiting nurse or other home services: Yes Unable to assess alcohol history related to: Unknown Alcohol intake: former Patient Tobacco Use Status: Former Tobacco user Tobacco use type: Cigarette Cigarettes Per Day: 1 Years Smoked: 35 e-Cigarette/Vaping Use: Currently Using Second Hand Smoke Exposure: No Substance Use Type: Opiates Advance Directives: Yes Advance Directives on File: Yes Advance Directives Date on File: 06/12/21 service: No Current occupational status: disabled Meds Allergies Allergy/AdvReac Type Severity Reaction Status Date / Time No Known Allergies Allergy Verified 01/25/22 10:58 [No Known Allergies*] Active Medications: Current Medications Albuterol Sulfate (Albuterol Sulfate 90 Mcg 8 Gm Inhaler) 2 puff INHALE Q4H PRN PRN Reason: Shortness Of Breath Or Wheezing Albuterol/Ipratropium (Albuterol/Iprat 2.5/0.5mg 3 Ml Ampul.Neb) 3 ml INHALE RQ4H PRN PRN Reason: sob Atorvastatin Calcium (Atorvastatin Calcium 10 Mg Tablet) 10 mg PO DAILY [facility] Bupropion HCl (Bupropion Hcl 75 Mg Tablet) 150 mg PO BID ANA Dextrose (Dextrose 50 % 25 Gm/50 Ml Syringe) 25 gm IVPUSH Q15M PRN; Protocol PRN Reason: per Hypoglycemia Standing Ord. Diltiazem HCl (Diltiazem Hcl Cd 180 Mg Cap.Er.24h) 360 mg PO DAILY ANA; Protocol Gabapentin (Gabapentin 300 Mg Capsule) 300 mg PO BID ANA Glucose (Glucose Gel 15 Gm Gel..Gram.) 15 gm PO Q15M PRN; Protocol PRN Reason: per Hypoglycemia Standing Ord. Hydralazine HCl (Hydralazine Hcl 25 Mg Tablet) 25 mg PO TID ANA; Protocol Insulin Glargine (Insulin Glargine,Hum.Rec.Anlog 100 Unit/Ml 10 Ml Vial) 30 unit SUBCUT ONCE ONE Stop: 02/13/22 15:41 Insulin Human Lispro (Insulin Lispro 100 Unit/Ml 3 Ml Vial) 4 unit SUBCUT TIDAC [facility] Insulin Human Lispro (Insulin Lispro 100 Unit/Ml 3 Ml Vial) 0 unit SUBCUT QIDACHS [facility]; Protocol Lisinopril (Lisinopril 40 Mg Tablet) 40 mg PO DAILY [facility]; Protocol Loratadine (Loratadine 10 Mg Tablet) 10 mg PO DAILY [facility] Metformin HCl (Metformin Hcl Er 500 Mg Tab.Er.24h) 1,000 mg PO BID [facility] Methadone HCl (Methadone Hcl 20 Mg/2 Ml Oral.Conc) 49 mg PO DAILY [facility] Montelukast Sodium (Montelukast Sodium 10 Mg Tablet) 10 mg PO BEDTIME [facility] Non-Formulary Medication (Budesonide) 0.5 mg INHALE BID [facility] Non-Formulary Medication (Glecaprevir-Pibrentasvir [Mavyret]) 3 tab PO DAILY [facility] Non-Formulary Medication (Roflumilast [Daliresp]) 1 tab PO DAILY [facility] Non-Formulary Medication (Theophylline) 450 mg PO Q12H [facility] Omeprazole (Omeprazole 40 Mg Capsule.Dr) 40 mg PO DAILY@0630 [facility] Pharmacy Consult (Consult Rx Perform Med Rec) 1 each MISCELLANE ONCE PRN PRN Reason: Consult order Pharmacy Consult (Consult Rx Vancomycin Dosing) 1 each MISCELLANE DAILY PRN PRN Reason: Consult order Salmeterol Xinafoate (Salmeterol Xinafoate 50 Mcg Blst.W.Dev) 1 puff INHALE R BID [facility] Simethicone (Simethicone 80 Mg Tab.Chew) 80 mg PO QIDWMHS PRN PRN Reason: Abdominal Distention Tiotropium [place] (Tiotropium [place] 18 Mcg Cap.W.Dev) puff INHALE DAILY [facility] Home Medications Medication Instructions Recorded Confirmed Last Taken Type albuterol sulfate 90 mcg/actuation 2 puff inhalation Q4H PRN 12/30/19 02/13/22 02/21/21 History aerosol inhaler (ProAir HFA) Shortness Of Breath Or Wheezing loratadine 10 mg tablet (Claritin) 10 mg PO DAILY 12/30/19 02/13/22 02/21/21 History montelukast 10 mg tablet 10 mg PO BEDTIME 1002/13/22 02/20/21 History diltiazem HCl 360 mg capsule,24 1 cap PO DAILY 11/16/20 02/13/22 02/21/21 History hr,extended release (Tiadylt ER) roflumilast 500 mcg tablet 1 tab PO DAILY 11/16/20 02/13/22 02/21/21 History (Daliresp) rosuvastatin 5 mg tablet 1 tab PO BEDTIME 11/16/20 02/13/22 02/20/21 History insulin lispro 100 unit/mL See Protocol subcut TIDAC 12/14/20 02/13/22 02/21/21 History subcutaneous solution (Humalog U-100 Insulin) metformin 500 mg tablet,extended 2 tab PO BID 05/18/21 02/13/22 Unknown History release 24 hr ergocalciferol (vitamin D2) 1,250 1,250 mcg PO QWEEK 06/06/21 02/13/22 Unknown History mcg (50,000 unit) capsule methadone 10 mg/mL oral concentrate 49 mg PO DAILY 06/06/21 02/13/22 07/30/21 History insulin glargine 100 unit/mL 45 unit subcut BEDTIME 06/07/21 02/13/22 Unknown History subcutaneous solution (Lantus U-100 Insulin) lisinopril 40 mg tablet 1 tab PO DAILY 07/30/21 02/13/22 Unknown History glecaprevir 100 mg-pibrentasvir 40 3 tab PO DAILY 11/02/21 02/13/22 Unknown History mg tablet (Mavyret) hydralazine 25 mg tablet 1 tab PO TID 11/02/21 02/13/22 Unknown History insulin lispro 100 unit/mL 4 unit subcut TIDAC 11/02/21 02/13/22 Unknown History subcutaneous solution omeprazole 40 mg capsule,delayed 40 mg PO DAILY@0630 11/02/21 02/13/22 Unknown History release lidocaine 5 % topical patch 1 patch topical DAILY 12/08/21 02/13/22 Unknown History (Lidoderm) Physical Exam Vital Signs and Narrative: Vital Signs: Last Vital Signs Temp 98.2 F 02/13/22 14:44 Pulse 107 H 02/13/22 14:44 Resp 21 H 02/13/22 14:44 BP 159/89 H 02/13/22 14:44 Pulse Ox 98 02/13/22 14:44 O2 Del Method 02/13/22 14:44 O2 Flow Rate 2 02/13/22 14:32 BMI result Body Mass Index 37.5 Constitutional: Alert, in no acute distress. Mental Status: Oriented to person, place and time. Eyes: Pupils are equal, round, and reactive to light. Ear, Nose, and Throat: Oropharynx clear, mucous membranes moist. Ears and nose without deformities. Trachea midline. Respiratory: Clear to auscultation bilaterally. No wheezing, rales, or rhonchi. Cardiovascular: S1, S2 regular. No murmurs, rubs, or gallops. Gastrointestinal: Abdomen soft, non-tender, non-distended. Normal bowel sounds. Neurologic: Cranial nerves II-XI are grossly intact. No focal neurological deficits. Moves all extremities spontaneously. Skin: No rashes of lesions. Musculoskeletal: Tenderness to palpation of lower spine and paravertebral muscles. No erythema or lesions on the lower back. Extremities: Diffuse erythema of entire right leg from ankle to groin. Warm to the touch. 1+ pitting edema bilaterally, slightly worse on the right. Psychiatric: Normal mood and affect. Results Labs CBC and Chem 7: 02/13/22 12:30 02/13/22 12:30 Labs: Laboratory Results - last 24 hr 02/13/22 02/13/22 02/13/22 12:30 12:30 12:30 MCV 94.4 MCH 28.2 MCHC 29.9 L RDW 13.8 Plt Count 327 MPV 9.0 L Immature Gran % (Auto) 0.5 H Neut % (Auto) 80.2 H Lymph % (Auto) 10.8 L Pepin % (Auto) 7.2 Eos % (Auto) 0.9 Baso % (Auto) 0.4 Lymph # (Auto) 1.6 Pepin # (Auto) 1.1 Eos # (Auto) 0.1 Baso # (Auto) 0.1 Abs Immat Gran (auto) 0.07 H Absolute Neuts (auto) 12.1 H Absolute Nucleated RBC 0.000 Nucleated RBC % (auto) 0.0 D-Dimer High Sensitivty Anion Gap 17 Estim Creat Clear Calc 105.0 Estimated GFR > 60 Random Glucose 180 H Lactic Acid Calcium 9.6 B-Natriuretic Peptide 12 Influenza Type A (PCR) Influenza Type B (PCR) RSV RNA Qual (PCR) SARS-CoV-2 RNA (RT-PCR) 02/13/22 02/13/22 02/13/22 12:30 12:30 13:41 MCV MCH MCHC RDW Plt Count MPV Immature Gran % (Auto) Neut % (Auto) Lymph % (Auto) Pepin % (Auto) Eos % (Auto) Baso % (Auto) Lymph # (Auto) Pepin # (Auto) Eos # (Auto) Baso # (Auto) Abs Immat Gran (auto) Absolute Neuts (auto) Absolute Nucleated RBC Nucleated RBC % (auto) D-Dimer High Sensitivty 546 Anion Gap Estim Creat Clear Calc Estimated GFR Random Glucose Lactic Acid 0.9 Calcium B-Natriuretic Peptide Influenza Type A (PCR) NEGATIVE Influenza Type B (PCR) NEGATIVE RSV RNA Qual (PCR) NEGATIVE SARS-CoV-2 RNA (RT-PCR) NEGATIVE Imaging Radiologist's Impressions: Impressions Tibia/Fibula X-Ray 02/13/22 12:38 IMPRESSION: Small radiopaque soft tissue foreign bodies in the upper lateral lower leg. Soft tissue swelling. Venous Duplex 02/13/22 13:09 IMPRESSION: No DVT demonstrated in the bilateral lower extremity. Assessment and Plan (1) Cellulitis: Status: Acute (2) COPD (chronic obstructive pulmonary disease): Status: Acute Plan Pt is a 52-year-old female with a PMH of asthma-COPD overlap syndrome, chronic respiratory failure on 2.5L baseline oxygen, insulin-dependent DM2, HTN, and HLD who presents to the ED complaining of right leg redness and swelling. Pt originally prescribed doxycycline for treatment of cellulitis and completed the full course of abx without resolution of her symptoms. Pt will be admitted to the hospital for treatment for cellulitis requiring IV abx due to failed outpatient therapy. # cellulitis of right leg -- diffuse, extensive erythema covering the entire right leg from ankle to groin. Warm to the touch -- failed outpatient therapy with a course of doxycycline -- vanco 1g IV daily and clindamycin 600mg IV q8h per ID -- pt does not meet sepsis criteria -- follow CBC # back pain -- likely muscular rather than skeletal -- no evidence of cauda equina syndrome: no saddle anesthesia, change in bowel or bladder habits, new numbness or tingling in extremities -- acetaminophen and lidocaine patches prn -- CT of abdomen and pelvis on 11/02/21 showed moderate multilevel degenerative spondyloarthropathy of the lumbar spine with moderate to severe spinal canal stenoses from L3-S1. # COPD -- currently not in exacerbation -- will treat with DuoNeb and home rescue and maintenance inhalers -- chronically on 2.5L supplemental oxygen # leukocytosis -- chronically elevated -- likely secondary to steroid use and underlying COPD -- follow CBC # diabetes -- Lantus, sliding scale -- diabetic diet # hypertension -- continue home meds # Mental health -- continue home meds # Diabetic neuropathy, unspecified -- continue gabapentin # History of substance abuse -- continue methadone DVT prophylaxis with Lovenox Attending Dr. Ramires Full code Due to need for IV abx to treat extensive cellulitis that failed outpatient therapy, pt's hospitalization will require at least a two-night stay. Quality Stroke Does the patient have a stroke diagnosis?: No VTE Prior VTE?: No VTE Risk Level:: Medical - moderate - high VTE Device Contraindication: Treatment Not Indicated VTE Drug Contraindication: N/A - Med Ordered
--- NOTE | 2022-02-13 16:18 | PC.NURSE ---
Called [facility] to verify last dose. Spoke with MAIN Zaldivar at [facility]. Faxed paperwork down to pharmacy
--- NOTE | 2022-02-13 16:31 | HE.PHANOTE ---
Methadone Verification Pharmacy has received methadone verification from Jessica. Patient last received methadone 50 mg from [facility], reported by Kayley. Jyoti Camacho, PharmD
[2022-02-13] MEDS: Enoxaparin Sodium 40 MG/0.4 ML SYRINGE SUBCUT (16:34)
[2022-02-13] MEDS: Insulin Glargine,Hum.rec.anlog 100 UNIT/ML 10 ML VIAL 30 UNIT SUBCUT (16:34)
[2022-02-13] MEDS: Clindamycin Phosphate/D5W 600 MG/50 ML PIGGYBACK 100 MG IV ×2 (16:34→23:50)
[2022-02-13] MEDS: 0.9 % Sodium Chloride Flush 3 ML SYRINGE IVFLUSH (16:35)
[2022-02-13 16:51] LABS: Glucose, Whole Blood 153 mg/dL (60-115)
--- NOTE | 2022-02-13 16:54 | PHA.PROG ---
Admission Date/Time: February 13, 2022 15:50 Indication: Cellulitis Weight in k kg Adjusted body weight in K.68 kg Kite body weight in K.7 kg Obesity Dosing Indication % IBW: 188% Serum Creatinine - Last 168 Hours 02/13/22 12:30 Creatinine 0.64 Estimated CrCl and GFR - Last 168 Hours 02/13/22 12:30 Estim Creat Clear Calc 105.0 Estimated GFR > 60 Vancomycin Loading Dose: 2000 mg Current Vancomycin Dosing Regimen: 1000 mg Q12H Date and Time for next Vancomycin Level to be drawn: 02/14 @ 1300 Pharmacist Comments on Vancomycin Plan: Patient is obese with a %IBW > 130% therefore requires careful monitor due to vancomycin's high volume of distibution Patient received loading dose vancomycin 2000 mg on 02/13 @ 1430. Maintenance dose 1000 mg Q12H is scheduled to start 02/14 @ 0300. Expected AUC is 506 with a trough of 14.7. Random level to be drawn prior to 3rd to dose for pharmacy to access for safety Pharmacy will monitor renal function daily Jyoti Camacho PharmD Vancomycin dosing will take advantage of [employer] as a clinical decision support tool that uses Bayesian modeling to calculate individual patient's pharmacokinetic parameters and forecast the patient's drug concentration time course with the target goal AUC 24 range of 400 - 600 mg/L/hr.
[2022-02-13 19:13] LABS: Glucose, Whole Blood 191 mg/dL (60-115)
--- NOTE | 2022-02-13 19:15 | PC.NURSE ---
Pt resting comfortably on stretcher at this time, talking on phone with family. Pt c/o chronic back pain and 2/10 r leg pain. Bilateral 3+ swelling of the feet. Pulses are palpable in both feet
[2022-02-13 20:42] LABS: Glucose, Whole Blood 238 mg/dL (60-115)
[2022-02-13] MEDS: Gabapentin 300 MG CAPSULE PO (20:50)
[2022-02-13] MEDS: metFORMIN HCl ER 500 MG TAB.ER.24H 1000 MG PO (20:50)
[2022-02-13] MEDS: hydrALAZINE HCl 25 MG TABLET PO (20:50)
[2022-02-13] MEDS: Montelukast Sodium 10 MG TABLET PO (20:50)
[2022-02-13] MEDS: Insulin Lispro 100 UNIT/ML 3 ML VIAL SUBCUT (20:51)
--- NOTE | 2022-02-13 21:09 | PC.NURSE ---
Addendum entered by Ghada Husain RN 02/14/22 03:28: report given to MAIN Pink Addendum entered by Ghada Husain RN 02/13/22 23:22: pt is alert and oriented resting in bed no signs of acute distress notice breathing equally unlabored Original Note: report received from MAIN Lopez
[2022-02-13] MEDS: buPROPion HCL 75 MG TABLET 150 MG PO (21:30)
[2022-02-13] MEDS: Theophylline Anhydrous ER 300 MG TAB.ER.12H 450 MG PO (21:30)
[2022-02-13] MEDS: Acetaminophen 325 MG TABLET 650 MG PO (23:56)
[2022-02-14] VITALS (9 sets, daily range): BP systolic 114–133; BP diastolic 65–71; PULSE 78–126; RESP 16–20; TEMP 36.2–36.8; O2SAT 86–100
[2022-02-14] MEDS: vancomycin HCL 1,000 MG in 0.9 % Sodium Chloride 250 ML 270 MG IV (02:25)
[2022-02-14 02:39] LABS: Glucose, Whole Blood 80 mg/dL (60-115)
[2022-02-14 06:36] LABS: Hematocrit 33.8 % (37.0-47.0); Hemoglobin 10.2 g/dl (12.0-16.0); Mean Corpuscular HGB Conc 30.2 g/dl (31.0-35.0); Mean Corpuscular Hemoglobin 28.6 pg (27.0-33.0); Mean Corpuscular Volume 94.7 fL (80.0-98.0); Mean Platelet Volume 10.1 fL (9.4-12.3); Platelet Count 285 X10*3/uL (160-400); Red Blood Count 3.57 X10*6/uL (4.20-5.50); Red Cell Distribution Width 13.8 % (11.0-16.0); White Blood Count 12.6 X10*3/uL (4.8-10.8)
[2022-02-14] MEDS: Omeprazole 40 MG CAPSULE.DR PO (06:37)
[2022-02-14] MEDS: Albuterol/Iprat 2.5/0.5MG 3 ML AMPUL.NEB INHALE (07:02)
[2022-02-14] MEDS: Salmeterol Xinafoate 50 MCG BLST.W.DEV 1 PUFF INHALE (07:15)
[2022-02-14 07:25] LABS: Glucose, Whole Blood 72 mg/dL (60-115)
[2022-02-14] MEDS: methADONE HCl 20 MG/2 ML ORAL.CONC 50 MG PO (08:22)
[2022-02-14] MEDS: lisinopriL 40 MG TABLET PO (08:26)
[2022-02-14] MEDS: Gabapentin 300 MG CAPSULE PO ×2 (08:26→22:01)
[2022-02-14] MEDS: Atorvastatin Calcium 10 MG TABLET PO (08:27)
[2022-02-14] MEDS: metFORMIN HCl ER 500 MG TAB.ER.24H 1000 MG PO (08:27)
[2022-02-14] MEDS: Loratadine 10 MG TABLET PO (08:27)
[2022-02-14] MEDS: hydrALAZINE HCl 25 MG TABLET PO ×3 (08:27→22:02)
[2022-02-14] MEDS: buPROPion HCL 75 MG TABLET 150 MG PO ×2 (08:30→22:06)
[2022-02-14] MEDS: dilTIAZem HCL CD 180 MG CAP.ER.24H 360 MG PO (08:30)
[2022-02-14] MEDS: Theophylline Anhydrous ER 300 MG TAB.ER.12H 450 MG PO ×2 (08:31→22:02)
[2022-02-14] MEDS: 0.9 % Sodium Chloride Flush 3 ML SYRINGE IVFLUSH ×2 (08:31→22:26)
[2022-02-14] MEDS: Ibuprofen 400 MG TABLET PO (09:38)
--- NOTE | 2022-02-14 09:42 | HO.PM.IMPN ---
Subjective Subjective Date of Service: 02/14/22 Interval History: Pt seen for f/u for cellulitis of right leg. Interval history: Patient reports mild pain in right leg, particularly in posterior upper thigh. Patient also notes right lower quadrant pain that began last night radiating to the back. Patient has chronic constipation and has not had a bowel movement for at least past 2-3 days. Back pain remains the same. Patient denies fever, chills, nausea, vomiting. No chest pain or pressure, palpitations, or shortness of breath. Review of Systems RLQ pain radiating to back Redness, swelling, and tenderness to right leg Lower back pain No F/C, N/V No chest pain/pressure, palpitations, or SOB Review of Systems: Yes all other systems are reviewed and are negative Physical Exam Vital Signs: Vital Signs: Last Vital Signs Temp 98.7 F 02/13/22 21:54 Pulse 91 02/14/22 08:00 Resp 20 02/14/22 08:00 BP 114/65 02/14/22 08:00 Pulse Ox 97 02/14/22 08:00 O2 Del Method 02/14/22 08:00 O2 Flow Rate 2 02/14/22 08:00 BMI result Body Mass Index 37.5 General: AOx3, restless but in no acute distress Resp: CTA bilaterally CVS: S1, S2, RRR GI: mild tenderness to palpation or right lower quadrant, radiating to the back. +BS, no distention Skin: No rash Neuro: Motor grossly intact Musculoskeletal: Tenderness to palpation of lower spine and paravertebral muscles. No erythema or lesions on the lower back Extremities: Diffuse erythema of entire right leg from ankle to groin, slightly less than yesterday. Warm to the touch. Mild tenderness with palpation. 1+ pitting edema bilaterally, slightly worse on the right. Psych: Appropriate affect Objective Data Active Medications Acetaminophen (Acetaminophen 325 Mg Tablet) 650 mg PO Q6H PRN PRN Reason: Pain, Mild (Pain Scale 1-3) Last Admin: 02/13/22 23:56 Dose: 650 mg Documented By: BRITTNEY-ANICL Albuterol Sulfate (Albuterol Sulfate 90 Mcg 8 Gm Inhaler) 2 puff INHALE Q4H PRN PRN Reason: Shortness Of Breath Or Wheezing Albuterol/Ipratropium (Albuterol/Iprat 2.5/0.5mg 3 Ml Ampul.Neb) 3 ml INHALE RQ4H PRN PRN Reason: sob Last Admin: 02/14/22 07:02 Dose: 3 ml Documented By: SANJAY Atorvastatin Calcium (Atorvastatin Calcium 10 Mg Tablet) 10 mg PO DAILY [facility] Last Admin: 02/14/22 08:27 Dose: 10 mg Documented By: JACQUI Bupropion HCl (Bupropion Hcl 75 Mg Tablet) 150 mg PO BID [facility] Last Admin: 02/14/22 08:30 Dose: 150 mg Documented By: JACQUI Dextrose (Dextrose 50 % 25 Gm/50 Ml Syringe) 25 gm IVPUSH Q15M PRN; Protocol PRN Reason: per Hypoglycemia Standing Ord. Diltiazem HCl (Diltiazem Hcl Cd 180 Mg Cap.Er.24h) 360 mg PO DAILY [facility]; Protocol Last Admin: 02/14/22 08:30 Dose: 360 mg Documented By: JACQUI Docusate Sodium (Docusate Sodium 100 Mg Capsule) 100 mg PO DAILY PRN PRN Reason: Constipation Enoxaparin Sodium (Enoxaparin Sodium 40 Mg/0.4 Ml Syringe) 40 mg SUBCUT Q24H [facility] Last Admin: 02/13/22 16:34 Dose: 40 mg Documented By: ANN-MARIE Gabapentin (Gabapentin 300 Mg Capsule) 300 mg PO BID [facility] Last Admin: 02/14/22 08:26 Dose: 300 mg Documented By: JACQUI Glucose (Glucose Gel 15 Gm Gel..Gram.) 15 gm PO Q15M PRN; Protocol PRN Reason: per Hypoglycemia Standing Ord. Hydralazine HCl (Hydralazine Hcl 25 Mg Tablet) 25 mg PO TID [facility]; Protocol Last Admin: 02/14/22 08:27 Dose: 25 mg Documented By: JACQUI Vancomycin HCl 1,000 mg/ (Sodium Chloride) 270 mls @ 270 mls/hr IV Q12H [facility] Last Infusion: 02/14/22 04:08 Dose: 0 mls/hr Documented By: JACQUI Clindamycin Phosphate (Cleocin) 600 mg in 50 mls @ 100 mls/hr IV Q8H [facility] Last Admin: 02/14/22 08:30 Dose: 100 mls/hr Documented By: JACQUI Ibuprofen (Ibuprofen 400 Mg Tablet) 400 mg PO Q6H PRN PRN Reason: Pain, Moderate (Pain Scale 4-6 Last Admin: 02/14/22 09:38 Dose: 400 mg Documented By: JACQUI Insulin Human Lispro (Insulin Lispro 100 Unit/Ml 3 Ml Vial) 4 unit SUBCUT TIDAC [facility] Last Admin: 02/14/22 07:40 Dose: Not Given Documented By: JACQUI Non-Admin Reason: No Insulin Coverage Comments: POC 72, held dose Insulin Human Lispro (Insulin Lispro 100 Unit/Ml 3 Ml Vial) 0 unit SUBCUT QIDACHS [facility]; Protocol Last Admin: 02/14/22 07:40 Dose: Not Given Documented By: JACQUI Non-Admin Reason: No Insulin Coverage Lactulose (Lactulose 20 Gm/30 Ml Solution) 20 gm PO ONCE ONE Stop: 02/14/22 09:39 Lidocaine (Lidocaine 4 % Patch Adh..Patch) 1 patch TRANSDERMA DAILY [facility]; Protocol Lisinopril (Lisinopril 40 Mg Tablet) 40 mg PO DAILY [facility]; Protocol Last Admin: 02/14/22 08:26 Dose: 40 mg Documented By: JACQUI Loratadine (Loratadine 10 Mg Tablet) 10 mg PO DAILY [facility] Last Admin: 02/14/22 08:27 Dose: 10 mg Documented By: JACQUI Metformin HCl (Metformin Hcl Er 500 Mg Tab.Er.24h) 1,000 mg PO BID [facility] Last Admin: 02/14/22 08:27 Dose: 1,000 mg Documented By: JACQUI Methadone HCl (Methadone Hcl 20 Mg/2 Ml Oral.Conc) 50 mg PO DAILY [facility] Last Admin: 02/14/22 08:22 Dose: 50 mg Documented By: JACQUI Montelukast Sodium (Montelukast Sodium 10 Mg Tablet) 10 mg PO BEDTIME [facility] Last Admin: 02/13/22 20:50 Dose: 10 mg Documented By: ANN-MARIE Non-Formulary Medication (Budesonide) 0.5 mg INHALE BID [facility] Non-Formulary Medication (Glecaprevir-Pibrentasvir [Mavyret]) 3 tab PO DAILY [facility] Non-Formulary Medication (Roflumilast [Daliresp]) 1 tab PO DAILY [facility] Omeprazole (Omeprazole 40 Mg Capsule.Dr) 40 mg PO DAILY@0630 [facility] Last Admin: 02/14/22 06:37 Dose: 40 mg Documented By: JACQUI Ondansetron HCl (Ondansetron Hcl 4 Mg/2 Ml Vial) 4 mg IVPUSH Q8H PRN PRN Reason: Nausea and Vomiting Pharmacy Consult (Consult Rx Perform Med Rec) 1 each MISCELLANE ONCE PRN PRN Reason: Consult order Pharmacy Consult (Consult Rx Vancomycin Dosing) 1 each MISCELLANE DAILY PRN PRN Reason: Consult order Pharmacy Consult (Consult Rx Vancomycin Dosing) 1 each MISCELLANE DAILY PRN PRN Reason: Consult order Salmeterol Xinafoate (Salmeterol Xinafoate 50 Mcg Blst.W.Dev) 1 puff INHALE RBID [facility] Last Admin: 02/14/22 07:15 Dose: 1 puff Documented By: SANJAY Simethicone (Simethicone 80 Mg Tab.Chew) 80 mg PO QIDWMHS PRN PRN Reason: Abdominal Distention Sodium Chloride (0.9 % Sodium Chloride Flush 3 Ml Syringe) 3 ml IVFLUSH QSHIFT [facility] Last Admin: 02/14/22 08:31 Dose: 3 ml Documented By: JACQUI Theophylline (Theophylline Anhydrous Er 300 Mg Tab.Er.12h) 450 mg PO Q12H [facility] Last Admin: 02/14/22 08:31 Dose: 450 mg Documented By: JACQUI Tiotropium Dousman (Tiotropium Dousman 18 Mcg Cap.W.Dev) 1 puff INHALE RDAILY [facility] Last Admin: 02/14/22 08:31 Dose: 1 puff Documented By: JACQUI Labs CBC & Chem 7: 02/14/22 05:48 02/14/22 09:24 Labs: Laboratory Results - last 24 hr 02/13/22 02/13/22 02/13/22 12:30 12:30 12:30 MCV 94.4 MCH 28.2 MCHC 29.9 L RDW 13.8 Plt Count 327 MPV 9.0 L Immature Gran % (Auto) 0.5 H Neut % (Auto) 80.2 H Lymph % (Auto) 10.8 L Kimball % (Auto) 7.2 Eos % (Auto) 0.9 Baso % (Auto) 0.4 Lymph # (Auto) 1.6 Kimball # (Auto) 1.1 Eos # (Auto) 0.1 Baso # (Auto) 0.1 Abs Immat Gran (auto) 0.07 H Absolute Neuts (auto) 12.1 H Absolute Nucleated RBC 0.000 Nucleated RBC % (auto) 0.0 D-Dimer High Sensitivty Anion Gap 17 Estim Creat Clear Calc 105.0 Estimated GFR > 60 POC Glucose Random Glucose 180 H Lactic Acid Calcium 9.6 B-Natriuretic Peptide 12 Influenza Type A (PCR) Influenza Type B (PCR) RSV RNA Qual (PCR) SARS-CoV-2 RNA (RT-PCR) 02/13/22 02/13/22 02/13/22 12:30 12:30 13:41 MCV MCH MCHC RDW Plt Count MPV Immature Gran % (Auto) Neut % (Auto) Lymph % (Auto) Kimball % (Auto) Eos % (Auto) Baso % (Auto) Lymph # (Auto) Kimball # (Auto) Eos # (Auto) Baso # (Auto) Abs Immat Gran (auto) Absolute Neuts (auto) Absolute Nucleated RBC Nucleated RBC % (auto) D-Dimer High Sensitivty 546 Anion Gap Estim Creat Clear Calc Estimated GFR POC Glucose Random Glucose Lactic Acid 0.9 Calcium B-Natriuretic Peptide Influenza Type A (PCR) NEGATIVE Influenza Type B (PCR) NEGATIVE RSV RNA Qual (PCR) NEGATIVE SARS-CoV-2 RNA (RT-PCR) NEGATIVE 02/13/22 02/13/22 02/13/22 16:40 19:09 20:39 MCV MCH MCHC RDW Plt Count MPV Immature Gran % (Auto) Neut % (Auto) Lymph % (Auto) Kimball % (Auto) Eos % (Auto) Baso % (Auto) Lymph # (Auto) Kimball # (Auto) Eos # (Auto) Baso # (Auto) Abs Immat Gran (auto) Absolute Neuts (auto) Absolute Nucleated RBC Nucleated RBC % (auto) D-Dimer High Sensitivty Anion Gap Estim Creat Clear Calc Estimated GFR POC Glucose 153 H 191 H 238 H Random Glucose Lactic Acid Calcium B-Natriuretic Peptide Influenza Type A (PCR) Influenza Type B (PCR) RSV RNA Qual (PCR) SARS-CoV-2 RNA (RT-PCR) 02/14/22 02/14/22 02/14/22 02:34 05:48 07:21 MCV 94.7 MCH 28.6 MCHC 30.2 L RDW 13.8 Plt Count 285 MPV 10.1 Immature Gran % (Auto) Neut % (Auto) Lymph % (Auto) Kimball % (Auto) Eos % (Auto) Baso % (Auto) Lymph # (Auto) Kimball # (Auto) Eos # (Auto) Baso # (Auto) Abs Immat Gran (auto) Absolute Neuts (auto) Absolute Nucleated RBC 0.000 Nucleated RBC % (auto) 0.0 D-Dimer High Sensitivty Anion Gap Estim Creat Clear Calc Estimated GFR POC Glucose 80 72 Random Glucose Lactic Acid Calcium B-Natriuretic Peptide Influenza Type A (PCR) Influenza Type B (PCR) RSV RNA Qual (PCR) SARS-CoV-2 RNA (RT-PCR) Assessment and Plan (1) Cellulitis: Status: Acute (2) COPD (chronic obstructive pulmonary disease): Status: Acute Plan Pt is a 52-year-old female with a PMH of asthma-COPD overlap syndrome on BiPAP at home, chronic respiratory failure on 2.5L baseline oxygen, insulin-dependent DM2, HTN, and HLD who presents to the ED complaining of right leg redness and swelling. Pt originally prescribed doxycycline for treatment of cellulitis and completed the full course of abx without resolution of her symptoms. Pt was admitted to the hospital for treatment for cellulitis requiring IV abx due to failed outpatient therapy. # cellulitis of right leg -- diffuse, extensive erythema covering the entire right leg from ankle to groin. Mildly tender and warm to the touch -- failed outpatient therapy with a course of doxycycline -- vanco 1g IV daily and clindamycin 600mg IV q8h per ID -- pt does not meet sepsis criteria: pt is on BiPAP at home, has chronically elevated WBC d/t steroid use and underlying COPD, and has chronically elevated HR -- follow CBC # back pain -- likely muscular rather than skeletal -- no evidence of cauda equina syndrome: no saddle anesthesia, change in bowel or bladder habits, new numbness or tingling in extremities -- acetaminophen and lidocaine patches prn -- CT of abdomen and pelvis on 11/02/21 showed?moderate multilevel degenerative spondyloarthropathy of the lumbar spine with moderate to severe spinal canal stenoses from L3-S1. -- follow up with PCP # right lower quadrant abdominal pain -- possibly due to constipation -- pt chronically constipated and notes no BM for past 2-3 days -- lactulose 20g -- if RLQ pain does not resolve with bowel movement, will get imaging of the abdomen # COPD -- currently not in exacerbation -- will treat with DuoNeb and home rescue and maintenance inhalers -- chronically on 2.5L supplemental oxygen and BiPAP at home # leukocytosis -- chronically elevated -- likely secondary to steroid use and underlying COPD -- follow CBC # diabetes -- Lantus, sliding scale -- diabetic diet # hypertension -- continue home meds # Mental health -- continue home meds # Diabetic neuropathy, unspecified -- continue gabapentin # History of substance abuse -- continue methadone DVT prophylaxis with Lovenox Attending Dr. Ramires Full code Due to need for IV abx to treat extensive cellulitis that failed outpatient therapy and has not sufficiently resolved, pt still requires hospitalization. Quality Stroke Does the patient have a stroke diagnosis?: No VTE Prior VTE?: No VTE Risk Level:: Medical - moderate - high VTE Device Contraindication: Treatment Not Indicated VTE Drug Contraindication: N/A - Med Ordered
[2022-02-14 11:03] LABS: Creatinine Clr Calc Pharmacy 110.1; Estimated Glomerular Filt Rate > 60
[2022-02-14 11:30] LABS: Glucose, Whole Blood 132 mg/dL (60-115)
[2022-02-14] MEDS: Lactulose 20 GM/30 ML SOLUTION PO (11:52)
[2022-02-14] MEDS: Clindamycin Phosphate/D5W 600 MG/50 ML PIGGYBACK 100 MG IV ×3 (11:55→23:24)
[2022-02-14] MEDS: ondansetron HCL 4 MG/2 ML VIAL IVPUSH ×2 (11:59→20:43)
[2022-02-14 13:08] LABS: Vancomycin Trough 8.8 mcg/mL (10.0-20.0)
--- NOTE | 2022-02-14 13:21 | HE.PHANOTE ---
RE: vanco Trough on 02/14 came back at 8.8 with predicted AUC 338mg/L with 1000mg Q12H; Changed dose to 1250mg Q12H with predicted AUC of 423mg/L. Will get another level after two doses on 02/15/22 @1300
[2022-02-14] MEDS: vancomycin HCL 1,250 MG in 0.9 % Sodium Chloride 250 ML 166.67 MG IV (14:39)
[2022-02-14] MEDS: Lidocaine 4 % Patch ADH..PATCH 1 PATCH TRANSDERMA (14:44)
--- NOTE | 2022-02-14 14:50 | MHC.CM.PN ---
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 PCP VERIFIED. 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 OXYGEN IN THE HOME. FROM HOME. NOT [facility] TO TRANSPORT @ D/C. D/C PLAN- HOME WITH RESUMPTION OF SERVICES.
[2022-02-14 15:44] LABS: Glucose, Whole Blood 127 mg/dL (60-115)
[2022-02-14] MEDS: polyethylene glycoL 3350 17 GM POWD.PACK PO (16:35)
[2022-02-14] MEDS: Enoxaparin Sodium 40 MG/0.4 ML SYRINGE SUBCUT (17:29)
[2022-02-14 20:12] LABS: Glucose, Whole Blood 120 mg/dL (60-115)
[2022-02-14] MEDS: Simethicone 80 MG TAB.CHEW PO (20:44)
--- NOTE | 2022-02-14 20:46 | PC.NURSE ---
On admission to the unit, pt reports she has some shakiness, some nausea and a headache. She states this usually happens when her blood gassess go up. Reported the request to draw ABG's to covering DR Wilson who confirmed receipt of message via [employer] text.
[2022-02-14 21:14] LABS: ABG Base Excess 6.1 mmol/L; ABG HCO3 32 mmol/L (22-26); ABG pCO2 54 mmHg (32-45); ABG pH 7.38 (7.35-7.45); ABG pO2 87 mmHg (83-108)
[2022-02-14] MEDS: Montelukast Sodium 10 MG TABLET PO (22:02)
[2022-02-15] VITALS (10 sets, daily range): BP systolic 122–135; BP diastolic 59–79; PULSE 71–145; RESP 16–29; TEMP 36.4–36.8; O2SAT 90–98
[2022-02-15 00:30] LABS: ABG Refer to POC result
[2022-02-15] MEDS: vancomycin HCL 1,250 MG in 0.9 % Sodium Chloride 250 ML 166.67 MG IV (02:44)
[2022-02-15] MEDS: Ibuprofen 400 MG TABLET PO (02:57)
[2022-02-15] MEDS: Albuterol/Iprat 2.5/0.5MG 3 ML AMPUL.NEB INHALE (03:08)
[2022-02-15] MEDS: Omeprazole 40 MG CAPSULE.DR PO (05:20)
[2022-02-15 05:50] LABS: Creatinine Clr Calc Pharmacy 117.8; Estimated Glomerular Filt Rate > 60
[2022-02-15 07:45] LABS: Glucose, Whole Blood 87 mg/dL (60-115)
[2022-02-15] MEDS: Theophylline Anhydrous ER 300 MG TAB.ER.12H 450 MG PO ×2 (08:03→20:54)
[2022-02-15] MEDS: methADONE HCl 20 MG/2 ML ORAL.CONC 50 MG PO (08:06)
[2022-02-15] MEDS: lisinopriL 40 MG TABLET PO (08:07)
[2022-02-15] MEDS: hydrALAZINE HCl 25 MG TABLET PO ×3 (08:07→20:54)
[2022-02-15] MEDS: metFORMIN HCl ER 500 MG TAB.ER.24H 1000 MG PO ×2 (08:07→20:53)
[2022-02-15] MEDS: Gabapentin 300 MG CAPSULE PO ×2 (08:07→20:56)
[2022-02-15] MEDS: dilTIAZem HCL CD 180 MG CAP.ER.24H 360 MG PO (08:07)
[2022-02-15] MEDS: buPROPion HCL 75 MG TABLET 150 MG PO ×2 (08:08→20:54)
[2022-02-15] MEDS: Loratadine 10 MG TABLET PO (08:08)
[2022-02-15] MEDS: Lidocaine 4 % Patch ADH..PATCH 1 PATCH TRANSDERMA (08:11)
[2022-02-15] MEDS: Clindamycin Phosphate/D5W 600 MG/50 ML PIGGYBACK 100 MG IV ×2 (08:13→16:15)
[2022-02-15] MEDS: 0.9 % Sodium Chloride Flush 3 ML SYRINGE IVFLUSH ×2 (08:21→16:51)
[2022-02-15] MEDS: Atorvastatin Calcium 10 MG TABLET PO (08:29)
--- NOTE | 2022-02-15 09:40 | P.PNIM_ITS ---
Subjective Subjective Date of Service: 02/15/22 Interval History: Pt seen for f/u for cellulitis of right leg. Interval history: Patient continues to report mild pain in posterior upper right thigh. Right leg continues to have diffuse redness and swelling, though improved since yesterday. Pain continues to have mild pain with palpation in right lower quadrant, but pain at rest has been relieved after bowel movement yesterday. Back pain remains the same. Patient denies fever, chills, nausea, vomiting.?No chest pain or pressure, palpitations, or shortness of breath. Review of Systems Mild RLQ pain with palpation Redness, swelling, and tenderness to right leg Lower back pain No F/C, N/V No chest pain/pressure, palpitations, or SOB Review of Systems: Yes all other systems are reviewed and are negative Physical Exam Vital Signs: Vital Signs: Last Vital Signs Temp 97.9 F 02/15/22 07:17 Pulse 98 02/15/22 07:17 Resp 18 02/15/22 07:17 BP 129/61 02/15/22 07:17 Pulse Ox 97 02/15/22 07:17 O2 Del Method 02/15/22 07:17 O2 Flow Rate 2 02/15/22 07:17 BMI result Body Mass Index 37.5 General: AOx3, in no acute distress Resp: CTA bilaterally CVS: S1, S2, RRR GI: Mild tenderness to palpation or right lower quadrant. +BS, no distention Skin: No rash Neuro: Motor grossly intact Musculoskeletal: Tenderness to palpation of lower spine and paravertebral m uscles. No erythema or lesions on the lower back Extremities: Diffuse erythema of entire right leg from ankle to groin, slightly less than on admission. Warm to the touch. Mild tenderness with palpation, particularly to posterior thigh. 1+ pitting edema bilaterally, slightly worse on the right. Psych: Appropriate affect Objective Data Active Medications Acetaminophen (Acetaminophen 325 Mg Tablet) 650 mg PO Q6H PRN PRN Reason: Pain, Mild (Pain Scale 1-3) Last Admin: 02/13/22 23:56 Dose: 650 mg Documented By: N-ANICL Albuterol Sulfate (Albuterol Sulfate 90 Mcg 8 Gm Inhaler) 2 puff INHALE Q4H PRN PRN Reason: Shortness Of Breath Or Wheezing Albuterol/Ipratropium (Albuterol/Iprat 2.5/0.5mg 3 Ml Ampul.Neb) 3 ml INHALE RQ4H PRN PRN Reason: sob Last Admin: 02/15/22 03:08 Dose: 3 ml Documented By: HORACIO Atorvastatin Calcium (Atorvastatin Calcium 10 Mg Tablet) 10 mg PO DAILY [facility] Last Admin: 02/15/22 08:29 Dose: 10 mg Documented By: SASHA Bupropion HCl (Bupropion Hcl 75 Mg Tablet) 150 mg PO BID [facility] Last Admin: 02/15/22 08:08 Dose: 150 mg Documented By: SASHA Dextrose (Dextrose 50 % 25 Gm/50 Ml Syringe) 25 gm IVPUSH Q15M PRN; Protocol PRN Reason: per Hypoglycemia Standing Ord. Diltiazem HCl (Diltiazem Hcl Cd 180 Mg Cap.Er.24h) 360 mg PO DAILY [facility]; Protocol Last Admin: 02/15/22 08:07 Dose: 360 mg Documented By: SASHA Docusate Sodium (Docusate Sodium 100 Mg Capsule) 100 mg PO DAILY PRN PRN Reason: Constipation Enoxaparin Sodium (Enoxaparin Sodium 40 Mg/0.4 Ml Syringe) 40 mg SUBCUT Q24H [facility] Last Admin: 02/14/22 17:29 Dose: 40 mg Documented By: BRITTNEY-GUTHC Gabapentin (Gabapentin 300 Mg Capsule) 300 mg PO BID [facility] Last Admin: 02/15/22 08:07 Dose: 300 mg Documented By: SASHA Glucose (Glucose Gel 15 Gm Gel..Gram.) 15 gm PO Q15M PRN; Protocol PRN Reason: per Hypoglycemia Standing Ord. Hydralazine HCl (Hydralazine Hcl 25 Mg Tablet) 25 mg PO TID [facility]; Protocol Last Admin: 02/15/22 08:07 Dose: 25 mg Documented By: SASHA Clindamycin Phosphate (Cleocin) 600 mg in 50 mls @ 100 mls/hr IV Q8H [facility] Last Admin: 02/15/22 08:13 Dose: 100 mls/hr Documented By: SASHA Vancomycin HCl 1,250 mg/ (Sodium Chloride) 250 mls @ 166.667 mls/hr IV Q12H [facility] Last Infusion: 02/15/22 04:16 Dose: 0 mls/hr Documented By: HOTHOMAS Ibuprofen (Ibuprofen 400 Mg Tablet) 400 mg PO Q6H PRN PRN Reason: Pain, Moderate (Pain Scale 4-6 Last Admin: 02/15/22 02:57 Dose: 400 mg Documented By: TANVI Insulin Glargine (Insulin Glargine,Hum.Rec.Anlog 100 Unit/Ml 10 Ml Vial) 45 unit SUBCUT BEDTIME [facility] Insulin Human Lispro (Insulin Lispro 100 Unit/Ml 3 Ml Vial) 4 unit SUBCUT TIDAC [facility] Last Admin: 02/15/22 08:25 Dose: Not Given Documented By: SASHA Non-Admin Reason: No Insulin Coverage Insulin Human Lispro (Insulin Lispro 100 Unit/Ml 3 Ml Vial) 0 unit SUBCUT QIDACHS [facility]; Protocol Last Admin: 02/15/22 08:25 Dose: Not Given Documented By: SASHA Non-Admin Reason: No Insulin Coverage Lidocaine (Lidocaine 4 % Patch Adh..Patch) 1 patch TRANSDERMA DAILY [facility]; Protocol Last Admin: 02/15/22 08:11 Dose: 1 patch Documented By: SASHA Lisinopril (Lisinopril 40 Mg Tablet) 40 mg PO DAILY [facility]; Protocol Last Admin: 02/15/22 08:07 Dose: 40 mg Documented By: SASHA Loratadine (Loratadine 10 Mg Tablet) 10 mg PO DAILY [facility] Last Admin: 02/15/22 08:08 Dose: 10 mg Documented By: SASHA Metformin HCl (Metformin Hcl Er 500 Mg Tab.Er.24h) 1,000 mg PO BID [facility] Last Admin: 02/15/22 08:07 Dose: 1,000 mg Documented By: SASHA Methadone HCl (Methadone Hcl 20 Mg/2 Ml Oral.Conc) 50 mg PO DAILY [facility] Last Admin: 02/15/22 08:06 Dose: 50 mg Documented By: SASHA Montelukast Sodium (Montelukast Sodium 10 Mg Tablet) 10 mg PO BEDTIME [facility] Last Admin: 02/14/22 22:02 Dose: 10 mg Documented By: TANVI Non-Formulary Medication (Budesonide) 0.5 mg INHALE BID [facility] Non-Formulary Medication (Glecaprevir-Pibrentasvir [Mavyret]) 3 tab PO DAILY [facility] Non-Formulary Medication (Roflumilast [Daliresp]) 1 tab PO DAILY [facility] Omeprazole (Omeprazole 40 Mg Capsule.Dr) 40 mg PO DAILY@0630 [facility] Last Admin: 02/15/22 05:20 Dose: 40 mg Documented By: TANVI Ondansetron HCl (Ondansetron Hcl 4 Mg/2 Ml Vial) 4 mg IVPUSH Q8H PRN PRN Reason: Nausea and Vomiting Last Admin: 02/14/22 20:43 Dose: 4 mg Documented By: ERNESTO Pharmacy Consult (Consult Rx Perform Med Rec) 1 each MISCELLANE ONCE PRN PRN Reason: Consult order Pharmacy Consult (Consult Rx Vancomycin Dosing) 1 each MISCELLANE DAILY PRN PRN Reason: Consult order Pharmacy Consult (Consult Rx Vancomycin Dosing) 1 each MISCELLANE DAILY PRN PRN Reason: Consult order Polyethylene Glycol (Polyethylene Glycol 3350 17 Gm Powd.Pack) 17 gm PO DAILY [facility] Last Admin: 02/15/22 09:19 Dose: Not Given Documented By: SASHA Non-Admin Reason: Patient Refused Salmeterol Xinafoate (Salmeterol Xinafoate 50 Mcg Blst.W.Dev) 1 puff INHALE RBID [facility] Last Admin: 02/14/22 20:04 Dose: Not Given Documented By: TIO Non-Admin Reason: Patient Refused Simethicone (Simethicone 80 Mg Tab.Chew) 80 mg PO QIDWMHS PRN PRN Reason: Abdominal Distention Last Admin: 02/14/22 20:44 Dose: 80 mg Documented By: ERNESTO Sodium Chloride (0.9 % Sodium Chloride Flush 3 Ml Syringe) 3 ml IVFLUSH QSHIFT [facility] Last Admin: 02/15/22 08:21 Dose: 3 ml Documented By: SASHA Theophylline (Theophylline Anhydrous Er 300 Mg Tab.Er.12h) 450 mg PO Q12H [facility] Last Admin: 02/15/22 08:03 Dose: 450 mg Documented By: SASHA Tiotropium [place] (Tiotropium [place] 18 Mcg Cap.W.Dev) 1 puff INHALE RDAILY [facility] Last Admin: 02/14/22 08:31 Dose: 1 puff Documented By: JACQUI Labs CBC & Chem 7: 02/14/22 05:48 02/15/22 05:18 Labs: Laboratory Results - last 24 hr 02/14/22 02/14/22 02/14/22 09:24 11:22 12:37 O2 Saturation ABG pH at Pt Temp ABG pCO2 at Pt Temp ABG pO2 at Pt Temp ABG HCO3 ABG Base Excess (Actual) Estim Creat Clear Calc 110.1 Estimated GFR > 60 POC Glucose 132 H Vancomycin Trough 8.8 L 02/14/22 02/14/22 02/14/22 15:41 20:08 21:08 O2 Saturation 96.0 ABG pH at Pt Temp 7.38 ABG pCO2 at Pt Temp 54 H ABG pO2 at Pt Temp 87 ABG HCO3 32 H ABG Base Excess (Actual) 6.1 Estim Creat Clear Calc Estimated GFR POC Glucose 127 H 120 H Vancomycin Trough 02/15/22 02/15/22 05:18 07:22 O2 Saturation ABG pH at Pt Temp ABG pCO2 at Pt Temp ABG pO2 at Pt Temp ABG HCO3 ABG Base Excess (Actual) Estim Creat Clear Calc 117.8 Estimated GFR > 60 POC Glucose 87 Vancomycin Trough Microbiology Microbiology Results: Microbiology 02/13/22 13:41 Blood Culture - Preliminary Blood - Venous No growth after 24 hours. 02/13/22 12:30 Blood Culture - Preliminary Blood - Venous No growth after 24 hours. Assessment and Plan (1) Cellulitis: Status: Acute (2) COPD (chronic obstructive pulmonary disease): Status: Acute Plan Pt is a 52-year-old female with a PMH of asthma-COPD overlap syndrome on BiPAP at home, chronic respiratory failure on 2.5L baseline oxygen, insulin-dependent DM2, HTN, and HLD who presents to the ED complaining of right leg redness and swelling. Pt originally prescribed doxycycline for treatment of cellulitis and completed the full course of abx without resolution of her symptoms. Pt was admitted to the hospital for treatment for cellulitis requiring IV abx due to failed outpatient therapy. # cellulitis of right leg -- diffuse erythema covering most of the right leg from ankle to groin. Mildly tender and warm to the touch. Improved since yesterday -- failed outpatient therapy with a course of doxycycline -- vanco 1g IV daily and clindamycin 600mg IV q8h per ID -- pt does not meet sepsis criteria: pt is on BiPAP at home, has chronically elevated WBC d/t steroid use and underlying COPD, and has chronically elevated HR -- follow CBC # back pain -- likely muscular rather than skeletal -- no evidence of cauda equina syndrome: no saddle anesthesia, change in bowel or bladder habits, new numbness or tingling in extremities -- acetaminophen and lidocaine patches prn -- pt prefers two lidocaine patches on her back, one on each side of her spine -- CT of abdomen and pelvis on 11/02/21 showed?moderate multilevel degenerative spondyloarthropathy of the lumbar spine with moderate to severe spinal canal stenoses from L3-S1. -- follow up with PCP # right lower quadrant abdominal pain -- likely due to constipation, which pt has chronically -- pt administered lactulose 20g and had bowel movement on 02/14/22, which relieved her abdominal pain at rest -- continues to endorse mild pain to palpation -- no imaging indicated at the moment -- continue to monitor BMs # COPD -- currently not in exacerbation -- will treat with DuoNeb and home rescue and maintenance inhalers -- chronically on 2.5L supplemental oxygen and BiPAP at home # leukocytosis -- chronically elevated -- likely secondary to steroid use and underlying COPD -- follow CBC # diabetes -- Lantus, sliding scale -- diabetic diet # hypertension -- continue home meds # Mental health -- continue home meds # Diabetic neuropathy, unspecified -- continue gabapentin # History of substance abuse -- continue methadone DVT prophylaxis with Lovenox Attending Dr. Ramires Full code Pt will continue to receive another day of IV abx treatement for cellulitis. If pt continues to improve, she smita be discharged tomorrow on PO clindamycin. Quality Stroke Does the patient have a stroke diagnosis?: No VTE Prior VTE?: No VTE Risk Level:: Medical - moderate - high VTE Device Contraindication: Treatment Not Indicated VTE Drug Contraindication: N/A - Med Ordered
[2022-02-15] MEDS: Salmeterol Xinafoate 50 MCG BLST.W.DEV 1 PUFF INHALE ×2 (10:17→19:30)
[2022-02-15 11:42] LABS: Glucose, Whole Blood 146 mg/dL (60-115)
[2022-02-15 12:27] LABS: Hematocrit 37.9 % (37.0-47.0); Hemoglobin 11.3 g/dl (12.0-16.0); Mean Corpuscular HGB Conc 29.8 g/dl (31.0-35.0); Mean Corpuscular Hemoglobin 28.5 pg (27.0-33.0); Mean Corpuscular Volume 95.7 fL (80.0-98.0); Mean Platelet Volume 9.5 fL (9.4-12.3); Platelet Count 401 X10*3/uL (160-400); Red Blood Count 3.96 X10*6/uL (4.20-5.50); Red Cell Distribution Width 13.6 % (11.0-16.0); White Blood Count 14.5 X10*3/uL (4.8-10.8)
[2022-02-15 14:17] LABS: Vancomycin Random 10.6 mcg/mL (15-20)
--- NOTE | 2022-02-15 14:17 | MHC.CM.PN ---
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
--- NOTE | 2022-02-15 15:09 | P.CDIC_ITS ---
CDI Concurrent Query Documentation Clarification: PHYSICIAN'S DOCUMENTATION REQUEST Date of Query: 02/15/22 1509 Patient Name: Anju Larios Admit Date: 02/13/22 Dear Doctor, A review of the medical record indicates additional documentation may be needed. Please review below and update the documentation accordingly. Clinical Indicators: Is there a diagnosis that correlates with the findings below: Risk Factors/Clinical Indicators/Treatments -PMH: COPD/Asthma -Patient requiring supplemental O2 via n catherine cannula & extended time on BIPAP aside from CHITO use -Patient requiring PRN albuterol nebuliz er treatments in addtion to prescribed inhalers -Patient RR 22-24 over the past 2 days - expiratory wheezes noted in RN shift assessments Clarify which of the following accurately represents the patient's respiratory status: * COPD exacerbation * COPD - stable chronic disease * Other (please specify) * Unable to determine Use of terms such as suspected, likely, concern for, or probable (associated with a specific diagnosis that is being evaluated, monitored, or treated as if it exists) are acceptable and can be coded in the inpatient setting, when documented at the time of discharge. Thank you, Yessenia Vasquez MS, RN, CCRN Extension: [phone] Please use your independent medical judgment in providing your response. THIS QUERY IS PART OF THE PERMANENT MEDICAL RECORD Provider Response: COPD (stable chronic disease) Other Diagnosis: COPD - Stable Chronic Disease
--- NOTE | 2022-02-15 15:23 | P.CNID_ITS ---
History of Present Illness Data of Consult Service Date: 02/15/22 Requesting physician: Vel Ramires Primary Care Provider: Kelli Benavides MD HPI Reason for consult: right leg erythema and streaking She presents with two days right leg redness and streaking. She says it started over ankle and spread up to groin. She has felt chills She has injury and scab on knee. Review of Systems Review of Systems: Yes all other systems are reviewed and are negative PMFSH Past Medical History Medical History Abdominal pain Abnormal chest x-ray Acute respiratory failure Aspiration into airway Asthma-COPD overlap syndrome Chronic constipation Chronic respiratory failure Chronic respiratory failure Congestive heart failure COPD (chronic obstructive pulmonary disease) COPD exacerbation COPD mixed type Diabetes mellitus Essential hypertension Hyperlipidemia, unspecified Hypertensive cardiovascular disease Hypogammaglobulinemia Leukocytosis Limb swelling Morbid obesity Opioid dependence Poor dentition Pulmonary congestion Pulmonary nodule Rib fractures Status asthmaticus with COPD (chronic obstructive pulmonary disease) Tobacco abuse Type 2 diabetes mellitus Type 2 diabetes mellitus with unspecified complications Vomiting Family History Family History Father Diabetes Other Asthma Surgical History Surgical History H/O tubal ligation Social History Social History Household Members: Children Household Members Other:: 3 Housing: Apartment Do you presently have visiting nurse or other home services: Yes (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, and [employer] with [employer]) Unable to assess alcohol history related to: Unknown Alcohol intake: former Patient Tobacco Use Status: Former Tobacco user Quit Date: last admission January 2022 Tobacco use type: Cigarette Cigarettes Per Day: 1 Years Smoked: 35 e-Cigarette/Vaping Use: Currently Using Second Hand Smoke Exposure: No Substance Use Type: Opiates Advance Directives Date on File: 06/12/21 service: No Current occupational status: disabled Meds Allergies Allergy/AdvReac Type Severity Reaction Status Date / Time No Known Allergies Allergy Verified 01/25/22 10:58 [No Known Allergies*] Active Medications: Current Medications Acetaminophen (Acetaminophen 325 Mg Tablet) 650 mg PO Q6H PRN PRN Reason: Pain, Mild (Pain Scale 1-3) Last Admin: 02/13/22 23:56 Dose: 650 mg Albuterol Sulfate (Albuterol Sulfate 90 Mcg 8 Gm Inhaler) 2 puff INHALE Q4H PRN PRN Reason: Shortness Of Breath Or Wheezing Albuterol/Ipratropium (Albuterol/Iprat 2.5/0.5mg 3 Ml Ampul.Neb) 3 ml INHALE RQ4H PRN PRN Reason: sob Last Admin: 02/15/22 03:08 Dose: 3 ml Atorvastatin Calcium (Atorvastatin Calcium 10 Mg Tablet) 10 mg PO DAILY [facility] Last Admin: 02/15/22 08:29 Dose: 10 mg Bupropion HCl (Bupropion Hcl 75 Mg Tablet) 150 mg PO BID [facility] Last Admin: 02/15/22 08:08 Dose: 150 mg Dextrose (Dextrose 50 % 25 Gm/50 Ml Syringe) 25 gm IVPUSH Q15M PRN; Protocol PRN Reason: per Hypoglycemia Standing Ord. Diltiazem HCl (Diltiazem Hcl Cd 180 Mg Cap.Er.24h) 360 mg PO DAILY [facility]; Protocol Last Admin: 02/15/22 08:07 Dose: 360 mg Docusate Sodium (Docusate Sodium 100 Mg Capsule) 100 mg PO DAILY PRN PRN Reason: Constipation Enoxaparin Sodium (Enoxaparin Sodium 40 Mg/0.4 Ml Syringe) 40 mg SUBCUT Q24H [facility] Last Admin: 02/14/22 17:29 Dose: 40 mg Gabapentin (Gabapentin 300 Mg Capsule) 300 mg PO BID [facility] Last Admin: 02/15/22 08:07 Dose: 300 mg Glucose (Glucose Gel 15 Gm Gel..Gram.) 15 gm PO Q15M PRN; Protocol PRN Reason: per Hypoglycemia Standing Ord. Hydralazine HCl (Hydralazine Hcl 25 Mg Tablet) 25 mg PO TID [facility]; Protocol Last Admin: 02/15/22 08:07 Dose: 25 mg Clindamycin Phosphate (Cleocin) 600 mg in 50 mls @ 100 mls/hr IV Q8H [facility] Last Infusion: 02/15/22 12:38 Dose: Infused Vancomycin HCl 1,500 mg/ (Sodium Chloride) 500 mls @ 333.333 mls/hr IV Q12H [facility] Ibuprofen (Ibuprofen 400 Mg Tablet) 400 mg PO Q6H PRN PRN Reason: Pain, Moderate (Pain Scale 4-6 Last Admin: 02/15/22 02:57 Dose: 400 mg Insulin Glargine (Insulin Glargine,Hum.Rec.Anlog 100 Unit/Ml 10 Ml Vial) 45 unit SUBCUT BEDTIME [facility] Insulin Human Lispro (Insulin Lispro 100 Unit/Ml 3 Ml Vial) 4 unit SUBCUT TIDAC [facility] Last Admin: 02/15/22 11:46 Dose: Not Given Insulin Human Lispro (Insulin Lispro 100 Unit/Ml 3 Ml Vial) 0 unit SUBCUT QIDA CHS [facility]; Protocol Last Admin: 02/15/22 11:47 Dose: Not Given Lidocaine (Lidocaine 4 % Patch Adh..Patch) 1 patch TRANSDERMA DAILY [facility]; Protocol Last Admin: 02/15/22 08:11 Dose: 1 patch Lisinopril (Lisinopril 40 Mg Tablet) 40 mg PO DAILY [facility]; Protocol Last Admin: 02/15/22 08:07 Dose: 40 mg Loratadine (Loratadine 10 Mg Tablet) 10 mg PO DAILY [facility] Last Admin: 02/15/22 08:08 Dose: 10 mg Metformin HCl (Metformin Hcl Er 500 Mg Tab.Er.24h) 1,000 mg PO BID [facility] Last Admin: 02/15/22 08:07 Dose: 1,000 mg Methadone HCl (Methadone Hcl 20 Mg/2 Ml Oral.Conc) 50 mg PO DAILY [facility] Last Admin: 02/15/22 08:06 Dose: 50 mg Montelukast Sodium (Montelukast Sodium 10 Mg Tablet) 10 mg PO BEDTIME [facility] Last Admin: 02/14/22 22:02 Dose: 10 mg Non-Formulary Medication (Budesonide) 0.5 mg INHALE BID [facility] Non-Formulary Medication (Glecaprevir-Pibrentasvir [Mavyret]) 3 tab PO DAILY [facility] Non-Formulary Medication (Roflumilast [Daliresp]) 1 tab PO DAILY [facility] Omeprazole (Omeprazole 40 Mg Capsule.Dr) 40 mg PO DAILY@0630 [facility] Last Admin: 02/15/22 05:20 Dose: 40 mg Ondansetron HCl (Ondansetron Hcl 4 Mg/2 Ml Vial) 4 mg IVPUSH Q8H PRN PRN Reason: Nausea and Vomiting Last Admin: 02/14/22 20:43 Dose: 4 mg Pharmacy Consult (Consult Rx Perform Med Rec) 1 each MISCELLANE ONCE PRN PRN Reason: Consult order Pharmacy Consult (Consult Rx Vancomycin Dosing) 1 each MISCELLANE DAILY PRN PRN Reason: Consult order Pharmacy Consult (Consult Rx Vancomycin Dosing) 1 each MISCELLANE DAILY PRN PRN Reason: Consult order Polyethylene Glycol (Polyethylene Glycol 3350 17 Gm Powd.Pack) 17 gm PO DAILY [facility] Last Admin: 02/15/22 09:19 Dose: Not Given Salmeterol Xinafoate (Salmeterol Xinafoate 50 Mcg Blst.W.Dev) 1 puff INHALE RBID [facility] Last Admin: 02/15/22 10:17 Dose: 1 puff Simethicone (Simethicone 80 Mg Tab.Chew) 80 mg PO QIDWMHS PRN PRN Reason: Abdominal Distention Last Admin: 02/14/22 20:44 Dose: 80 mg Sodium Chloride (0.9 % Sodium Chloride Flush 3 Ml Syringe) 3 ml IVFLUSH QSHIFT [facility] Last Admin: 02/15/22 08:21 Dose: 3 ml Theophylline (Theophylline Anhydrous Er 300 Mg Tab.Er.12h) 450 mg PO Q12H [facility] Last Admin: 02/15/22 08:03 Dose: 450 mg Tiotropium [place] (Tiotropium [place] 18 Mcg Cap.W.Dev) 1 puff INHALE RDAILY [facility] Last Admin: 02/15/22 10:17 Dose: 1 puff Home Medications Medication Instructions Recorded Confirmed Last Taken Type albuterol sulfate 90 mcg/actuation 2 puff inhalation Q4H PRN 12/30/19 02/13/22 02/21/21 History aerosol inhaler (ProAir HFA) Shortness Of Breath Or Wheezing loratadine 10 mg tablet (Claritin) 10 mg PO DAILY 12/30/19 02/13/22 02/21/21 History montelukast 10 mg tablet 10 mg PO BEDTIME 12/30/19 02/13/22 02/20/21 History diltiazem HCl 360 mg capsule,24 1 cap PO DAILY 11/16/20 02/13/22 02/21/21 History hr,extended release (Tiadylt ER) roflumilast 500 mcg tablet 1 tab PO DAILY 11/16/20 02/13/22 02/21/21 History (Daliresp) rosuvastatin 5 mg tablet 1 tab PO BEDTIME 11/16/20 02/13/22 02/20/21 History insulin lispro 100 unit/mL See Protocol subcut TIDAC 12/14/20 02/13/22 02/21/21 History subcutaneous solution (Humalog U-100 Insulin) metformin 500 mg tablet,extended 2 tab PO BID 05/18/21 02/13/22 Unknown History release 24 hr ergocalciferol (vitamin D2) 1,250 1,250 mcg PO QWEEK 06/06/21 02/13/22 Unknown History mcg (50,000 unit) capsule methadone 10 mg/mL oral concentrate 49 mg PO DAILY 06/06/21 02/13/22 07/30/21 History insulin glargine 100 unit/mL 45 unit subcut BEDTIME 06/07/21 02/13/22 Unknown History subcutaneous solution (Lantus U-100 Insulin) lisinopril 40 mg tablet 1 tab PO DAILY 07/30/21 02/13/22 Unknown History glecaprevir 100 mg-pibrentasvir 40 3 tab PO DAILY 11/02/21 02/13/22 Unknown History mg tablet (Mavyret) hydralazine 25 mg tablet 1 tab PO TID 11/02/21 02/13/22 Unknown History insulin lispro 100 unit/mL 4 unit subcut TIDAC 11/02/21 02/13/22 Unknown History subcutaneous solution omeprazole 40 mg capsule,delayed 40 mg PO DAILY@0630 11/02/21 02/13/22 Unknown History release lidocaine 5 % topical patch 1 patch topical DAILY 12/08/21 02/13/22 Unknown History (Lidoderm) Physical Exam Vital Signs: Vital Signs: Last Vital Signs Temp 97.9 F 02/15/22 07:17 Pulse 110 H 02/15/22 11:30 Resp 24 H 02/15/22 10:18 BP 129/61 02/15/22 07:17 Pulse Ox 97 02/15/22 07:17 O2 Del Method 02/15/22 07:17 O2 Flow Rate 2 02/15/22 07:17 BMI result Body Mass Index 37.5 Const: General: cooperative HEENT: Head: Yes normal to inspection Face and sinus: Yes normal facial exam Mouth: Normal oral and palatal mucosa present Teeth and gingiva: dentition normal Eyes: General: appearance normal, both eyes and all related structures Pupils: Equal, round and reactive pupils present Resp: Effort & Inspection: normal respiratory effort Cardio: Rate: regular rate Rhythm: regular rhythm GI: Palpation (GI): Soft to palpation and nontender : General: Yes no CVA tenderness Back/Spine/Pelvis: Back: no CVA tenderness Skin: General skin exam: no rashes or lesions noted Neuro: General: moves all extremities Cranial nerves: Yes Equal, round and reactive pupils present Extrem: Other: erythema right leg ankle to groin no tinea pedis Psych: Appearance: grossly normal Results Labs CBC & Chem 7: 02/15/22 10:23 02/15/22 05:18 Labs: Short CBC 02/15/22 Range/Units 10:23 WBC 14.5 H (4.8-10.8) X10*3/uL Hgb 11.3 L (12.0-16.0) g/dl Hct 37.9 (37.0-47.0) % Plt Count 401 H D (160-400) X10*3/uL BMP 02/15/22 05:18 Creatinine 0.57 Microbiology Microbiology Results: Microbiology 02/13/22 12:30 Blood - Venous Blood Culture - Preliminary No growth after 48 hours. 02/13/22 13:41 Blood - Venous Blood Culture - Preliminary No growth after 24 hours. Assessment and Plan (1) Cellulitis: Status: Acute There is redness and swelling more consistent with strep ,less likely staph Injury to knee may be contributory Plan Would continue Clindamycin and Vancomycin. Tomorrow probably po Amoxicillin 500 mg tid for one week.
[2022-02-15 15:43] LABS: Glucose, Whole Blood 155 mg/dL (60-115)
[2022-02-15] MEDS: Enoxaparin Sodium 40 MG/0.4 ML SYRINGE SUBCUT (16:17)
[2022-02-15] MEDS: vancomycin HCL 1,500 MG in 0.9 % Sodium Chloride 500 ML 333.33 MG IV (16:50)
[2022-02-15] MEDS: Insulin Lispro 100 UNIT/ML 3 ML VIAL SUBCUT ×2 (16:51)
[2022-02-15] MEDS: ondansetron HCL 4 MG/2 ML VIAL IVPUSH (18:36)
[2022-02-15 20:00] LABS: Glucose, Whole Blood 86 mg/dL (60-115)
[2022-02-15] MEDS: hydrOXYzine HCL 25 MG TABLET PO (20:54)
[2022-02-15] MEDS: Montelukast Sodium 10 MG TABLET PO (20:54)
[2022-02-15] MEDS: Insulin Glargine,Hum.rec.anlog 100 UNIT/ML 10 ML VIAL 45 UNIT SUBCUT (21:02)
[2022-02-16] VITALS (9 sets, daily range): BP systolic 124–158; BP diastolic 61–85; PULSE 92–115; RESP 18–26; TEMP 36.4–37.1; O2SAT 93–98
[2022-02-16] MEDS: 0.9 % Sodium Chloride Flush 3 ML SYRINGE IVFLUSH ×4 (00:23→23:26)
[2022-02-16] MEDS: Clindamycin Phosphate/D5W 600 MG/50 ML PIGGYBACK 100 MG IV ×4 (00:34→23:26)
[2022-02-16] MEDS: Ibuprofen 400 MG TABLET PO ×3 (00:37→17:06)
[2022-02-16] MEDS: vancomycin HCL 1,500 MG in 0.9 % Sodium Chloride 500 ML 333.33 MG IV (04:04)
[2022-02-16] MEDS: Omeprazole 40 MG CAPSULE.DR PO (05:44)
[2022-02-16 07:15] LABS: Creatinine Clr Calc Pharmacy 122.1; Estimated Glomerular Filt Rate > 60
[2022-02-16 07:37] LABS: Glucose, Whole Blood 152 mg/dL (60-115)
[2022-02-16] MEDS: Salmeterol Xinafoate 50 MCG BLST.W.DEV 1 PUFF INHALE ×2 (07:41→20:28)
[2022-02-16] MEDS: polyethylene glycoL 3350 17 GM POWD.PACK PO (08:13)
[2022-02-16] MEDS: methADONE HCl 20 MG/2 ML ORAL.CONC 50 MG PO (08:14)
[2022-02-16] MEDS: Lidocaine 4 % Patch ADH..PATCH 1 PATCH TRANSDERMA (08:16)
[2022-02-16] MEDS: metFORMIN HCl ER 500 MG TAB.ER.24H 1000 MG PO ×2 (08:17→20:09)
[2022-02-16] MEDS: Theophylline Anhydrous ER 300 MG TAB.ER.12H 450 MG PO ×2 (08:18→20:11)
[2022-02-16] MEDS: buPROPion HCL 75 MG TABLET 150 MG PO ×2 (08:22→20:09)
[2022-02-16] MEDS: Loratadine 10 MG TABLET PO (08:24)
[2022-02-16] MEDS: Insulin Lispro 100 UNIT/ML 3 ML VIAL SUBCUT ×2 (08:24→17:00)
[2022-02-16] MEDS: Gabapentin 300 MG CAPSULE PO ×2 (08:24→20:09)
[2022-02-16] MEDS: Atorvastatin Calcium 10 MG TABLET PO (08:24)
[2022-02-16] MEDS: dilTIAZem HCL CD 180 MG CAP.ER.24H 360 MG PO (08:24)
[2022-02-16] MEDS: hydrALAZINE HCl 25 MG TABLET PO ×3 (08:24→20:09)
[2022-02-16] MEDS: lisinopriL 40 MG TABLET PO (08:24)
[2022-02-16 10:49] LABS: Glucose, Whole Blood 99 mg/dL (60-115)
--- NOTE | 2022-02-16 11:53 | HO.PM.IMPN ---
Subjective Subjective Date of Service: 02/16/22 Interval History: being followed for right lower extremity cellulitis, denies fever chills, no other acute issues overnight, lower back pain is better, tolerating diet with no nausea no vomiting, no c/o abdominal pain today. no worsening right lower extremity redness, swelling or pain. Review of Systems Review of Systems: Yes all other systems are reviewed and are negative Physical Exam Vital Signs: Vital Signs: Last Vital Signs Temp 98.1 F 02/16/22 07:35 Pulse 110 H 02/16/22 07:43 Resp 26 H 02/16/22 07:43 BP 124/61 02/16/22 07:35 Pulse Ox 94 02/16/22 07:35 O2 Del Method 02/16/22 07:35 O2 Flow Rate 2.0 02/16/22 07:35 BMI result Body Mass Index 37.5 Const: Other: General: AOx3, in no acute distress Resp: CTA bilaterally CVS: S1, S2, RRR GI: Abdomen soft nontender obese bowel sounds positive no rebound no rigidity Neuro: Motor grossly intact Musculoskeletal: Tenderness to palpation of lower spine and paravertebral muscles unchanged. No erythema or lesions on the lower back Extremities: less hyperemia and swelling of right lower extremity, improvement in right groin erythema, minimal tenderness to palpation. Psych: Appropriate affect Objective Data Active Medications Acetaminophen (Acetaminophen 325 Mg Tablet) 650 mg PO Q6H PRN PRN Reason: Pain, Mild (Pain Scale 1-3) Last Admin: 02/13/22 23:56 Dose: 650 mg Documented By: BRITTNEY-BETHICL Albuterol Sulfate (Albuterol Sulfate 90 Mcg 8 Gm Inhaler) 2 puff INHALE Q4H PRN PRN Reason: Shortness Of Breath Or Wheezing Albuterol/Ipratropium (Albuterol/Iprat 2.5/0.5mg 3 Ml Ampul.Neb) 3 ml INHALE RQ4H PRN PRN Reason: sob Last Admin: 02/15/22 03:08 Dose: 3 ml Documented By: HORACIO Atorvastatin Calcium (Atorvastatin Calcium 10 Mg Tablet) 10 mg PO DAILY [facility] Last Admin: 02/16/22 08:24 Dose: 10 mg Documented By: ERNESTO Bupropion HCl (Bupropion Hcl 75 Mg Tablet) 150 mg PO BID [facility] Last Admin: 02/16/22 08:22 Dose: 150 mg Documented By: ERNESTO Dextrose (Dextrose 50 % 25 Gm/50 Ml Syringe) 25 gm IVPUSH Q15M PRN; Protocol PRN Reason: per Hypoglycemia Standing Ord. Diltiazem HCl (Diltiazem Hcl Cd 180 Mg Cap.Er.24h) 360 mg PO DAILY [facility]; Protocol Last Admin: 02/16/22 08:24 Dose: 360 mg Documented By: ERNESTO Docusate Sodium (Docusate Sodium 100 Mg Capsule) 100 mg PO DAILY PRN PRN Reason: Constipation Enoxaparin Sodium (Enoxaparin Sodium 40 Mg/0.4 Ml Syringe) 40 mg SUBCUT Q24H [facility] Last Admin: 02/15/22 16:17 Dose: 40 mg Documented By: CASSY Gabapentin (Gabapentin 300 Mg Capsule) 300 mg PO BID [facility] Last Admin: 02/16/22 08:24 Dose: 300 mg Documented By: ERNESTO Glucose (Glucose Gel 15 Gm Gel..Gram.) 15 gm PO Q15M PRN; Protocol PRN Reason: per Hypoglycemia Standing Ord. Hydralazine HCl (Hydralazine Hcl 25 Mg Tablet) 25 mg PO TID [facility]; Protocol Last Admin: 02/16/22 08:24 Dose: 25 mg Documented By: ERNESTO Clindamycin Phosphate (Cleocin) 600 mg in 50 mls @ 100 mls/hr IV Q8H [facility] Last Admin: 02/16/22 08:19 Dose: 100 mls/hr Documented By: ERNESTO Vancomycin HCl 1,500 mg/ (Sodium Chloride) 500 mls @ 333.333 mls/hr IV Q12H [facility] Last Infusion: 02/16/22 05:37 Dose: 0 mls/hr Documented By: JAYLA Ibuprofen (Ibuprofen 400 Mg Tablet) 400 mg PO Q6H PRN PRN Reason: Pain, Moderate (Pain Scale 4-6 Last Admin: 02/16/22 06:11 Dose: 400 mg Documented By: JAYLA Insulin Glargine (Insulin Glargine,Hum.Rec.Anlog 100 Unit/Ml 10 Ml Vial) 45 unit SUBCUT BEDTIME [facility] Last Admin: 02/15/22 21:02 Dose: 45 unit Documented By: JAYLA Insulin Human Lispro (Insulin Lispro 100 Unit/Ml 3 Ml Vial) 4 unit SUBCUT TIDAC [facility] Last Admin: 02/16/22 08:24 Dose: 4 unit Documented By: ERNESTO Insulin Human Lispro (Insulin Lispro 100 Unit/Ml 3 Ml Vial) 0 unit SUBCUT QIDACHS [facility]; Protocol Last Admin: 02/16/22 08:12 Dose: Not Given Documented By: ERNESTO Non-Admin Reason: Physician Held Med Lidocaine (Lidocaine 4 % Patch Adh..Patch) 1 patch TRANSDERMA DAILY [facility]; Protocol Last Admin: 02/16/22 08:16 Dose: 1 patch Documented By: ERNESTO Lisinopril (Lisinopril 40 Mg Tablet) 40 mg PO DAILY [facility]; Protocol Last Admin: 02/16/22 08:24 Dose: 40 mg Documented By: ERNESTO Loratadine (Loratadine 10 Mg Tablet) 10 mg PO DAILY [facility] Last Admin: 02/16/22 08:24 Dose: 10 mg Documented By: ERNESTO Metformin HCl (Metformin Hcl Er 500 Mg Tab.Er.24h) 1,000 mg PO BID [facility] Last Admin: 02/16/22 08:17 Dose: 1,000 mg Documented By: ERNESTO Methadone HCl (Methadone Hcl 20 Mg/2 Ml Oral.Conc) 50 mg PO DAILY [facility] Last Admin: 02/16/22 08:14 Dose: 50 mg Documented By: ERNESTO Montelukast Sodium (Montelukast Sodium 10 Mg Tablet) 10 mg PO BEDTIME [facility] Last Admin: 02/15/22 20:54 Dose: 10 mg Documented By: JAYLA Non-Formulary Medication (Budesonide) 0.5 mg INHALE BID [facility] Non-Formulary Medication (Glecaprevir-Pibrentasvir [Mavyret]) 3 tab PO DAILY [facility] Non-Formulary Medication (Roflumilast [Daliresp]) 1 tab PO DAILY [facility] Omeprazole (Omeprazole 40 Mg Capsule.Dr) 40 mg PO DAILY@0630 [facility] Last Admin: 02/16/22 05:44 Dose: 40 mg Documented By: JAYLA Ondansetron HCl (Ondansetron Hcl 4 Mg/2 Ml Vial) 4 mg IVPUSH Q8H PRN PRN Reason: Nausea and Vomiting Last Admin: 02/15/22 18:36 Dose: 4 mg Documented By: CASSY Pharmacy Consult (Consult Rx Perform Med Rec) 1 each MISCELLANE ONCE PRN PRN Reason: Consult order Pharmacy Consult (Consult Rx Vancomycin Dosing) 1 each MISCELLANE DAILY PRN PRN Reason: Consult order Pharmacy Consult (Consult Rx Vancomycin Dosing) 1 each MISCELLANE DAILY PRN PRN Reason: Consult order Polyethylene Glycol (Polyethylene Glycol 3350 17 Gm Powd.Pack) 17 gm PO DAILY [facility] Last Admin: 02/16/22 08:13 Dose: 17 gm Documented By: ERNESTO Salmeterol Xinafoate (Salmeterol Xinafoate 50 Mcg Blst.W.Dev) 1 puff INHALE RBID [facility] Last Admin: 02/16/22 07:41 Dose: 1 puff Documented By: PIO Simethicone (Simethicone 80 Mg Tab.Chew) 80 mg PO QIDWMHS PRN PRN Reason: Abdominal Distention Last Admin: 02/14/22 20:44 Dose: 80 mg Documented By: ERNESTO Sodium Chloride (0.9 % Sodium Chloride Flush 3 Ml Syringe) 3 ml IVFLUSH QSHIFT [facility] Last Admin: 02/16/22 08:19 Dose: 3 ml Documented By: ERNESTO Theophylline (Theophylline Anhydrous Er 300 Mg Tab.Er.12h) 450 mg PO Q12H [facility] Last Admin: 02/16/22 08:18 Dose: 450 mg Documented By: ERNESTO Tiotropium [place] (Tiotropium [place] 18 Mcg Cap.W.Dev) 1 puff INHALE RDAILY [facility] Last Admin: 02/16/22 07:41 Dose: 1 puff Documented By: PIO Labs CBC & Chem 7: 02/15/22 10:23 02/16/22 05:34 Labs: Laboratory Results - last 24 hr 02/15/22 02/15/22 02/15/22 10:23 13:00 15:27 MCV 95.7 MCH 28.5 MCHC 29.8 L RDW 13.6 Plt Count 401 H D MPV 9.5 Absolute Nucleated RBC 0.000 Nucleated RBC % (auto) 0.0 Estim Creat Clear Calc Estimated GFR POC Glucose 155 H Random Vancomycin 10.6 L 02/15/22 02/16/2222 19:26 05:34 07:31 MCV MCH MCHC RDW Plt Count MPV Absolute Nucleated RBC Nucleated RBC % (auto) Estim Creat Clear Calc 122.1 Estimated GFR > 60 POC Glucose 86 152 H Random Vancomycin 02/16/22 10:43 MCV MCH MCHC RDW Plt Count MPV Absolute Nucleated RBC Nucleated RBC % (auto) Estim Creat Clear Calc Estimated GFR POC Glucose 99 Random Vancomycin Microbiology Microbiology Results: Microbiology 02/13/22 12:30 Blood Culture - Preliminary Blood - Venous Prelim: GPC Gram Stain only 02/13/22 13:41 Blood Culture - Preliminary Blood - Venous No growth after 48 hours. Assessment and Plan (1) Cellulitis: Status: Acute (2) COPD (chronic obstructive pulmonary disease): Status: Acute Plan 52-year-old female with a PMH of asthma-COPD overlap syndrome on BiPAP at home, chronic respiratory failure on 2.5L baseline oxygen, insulin-dependent DM2, HTN, and HLD who presents to the ED complaining of right leg redness and swelling. Pt originally prescribed doxycycline for treatment of cellulitis and completed the full course of abx without resolution of her symptoms. Pt was admitted to the hospital for treatment for cellulitis requiring IV abx due to failed outpatient therapy. # cellulitis of right leg -- diffuse erythema covering most of the right leg from ankle to groin slowly improving with less redness and swelling -- failed outpatient therapy with a course of doxycycline -- vanco 1g IV daily and clindamycin 600mg IV q8h day 3 continue current treatment for 1 more day and transition to by mouth antibioti -- pt does not meet sepsis criteria: pt is on BiPAP at home, has chronically elevated WBC d/t steroid use and underlying COPD, and has chronically elevated HR chronically elevated WBC, blood cultures 1/2 g positive cocci in clusters will follow final report # back pain -- likely muscular continue Tylenol and lidocaine patch -- CT of abdomen and pelvis on 11/02/21 showed?moderate multilevel degenerative spondyloarthropathy of the lumbar spine with moderate to severe spinal canal stenoses from L3-S1. -- follow up with PCP # right lower quadrant abdominal pain -- likely due to constipation, which pt has chronically, pain improved after bowel movement continue stool softeners # COPD -- no acute exacerbation continue DuoNeb and home inhalers, chronically on 2.5 L of oxygen and BiPAP at home # leukocytosis -- chronically elevated,likely secondary to steroid use and underlying COPD # diabetes blood sugars blood sugars on lower side on Lantus 45 units, insulin sliding scale, schedule pre meal insulin and metformin, will lower dose of Lantus # hypertension -- stable blood pressure, continue home meds # Mental health -- continue home meds # Diabetic neuropathy, unspecified -- continue gabapentin # History of substance abuse -- continue methadone DVT prophylaxis with Lovenox Full code Pt will continue to receive another day of IV abx treatement for cellulitis. If pt continues to improve, she smita be discharged tomorrow on PO amox Quality Stroke Does the patient have a stroke diagnosis?: No VTE Prior VTE?: No VTE Risk Level:: Medical - moderate - high VTE Device Contraindication: Treatment Not Indicated VTE Drug Contraindication: N/A - Med Ordered
[2022-02-16 13:45] LABS: Vancomycin Trough 3.8 mcg/mL (10.0-20.0)
[2022-02-16] MEDS: Enoxaparin Sodium 40 MG/0.4 ML SYRINGE SUBCUT (15:22)
--- NOTE | 2022-02-16 15:44 | HE.PHANOTE ---
trough level came back at 3.8 after the previous dose increase. I called nurse to verify times of doses and had the lab re-run the sample. Second result was 3.9. Based on all information that suggests this is a true trough, we have increased the dose from 1500 Q12H to 1250 mg Q8H. Re-draw level tomorrow at 1300
[2022-02-16 15:52] LABS: Glucose, Whole Blood 139 mg/dL (60-115)
[2022-02-16] MEDS: vancomycin HCL 1,250 MG in 0.9 % Sodium Chloride 250 ML 166.67 MG IV (17:03)
[2022-02-16 19:46] LABS: Glucose, Whole Blood 123 mg/dL (60-115)
[2022-02-16] MEDS: Montelukast Sodium 10 MG TABLET PO (20:09)
[2022-02-16] MEDS: Insulin Glargine,Hum.rec.anlog 100 UNIT/ML 10 ML VIAL 35 UNIT SUBCUT (20:10)
[2022-02-16] MEDS: Albuterol/Iprat 2.5/0.5MG 3 ML AMPUL.NEB INHALE (22:43)
[2022-02-17] VITALS (7 sets, daily range): BP systolic 127–160; BP diastolic 68–77; PULSE 88–109; RESP 15–20; TEMP 36.8–37.1; O2SAT 92–98
[2022-02-17] MEDS: ondansetron HCL 4 MG/2 ML VIAL IVPUSH ×2 (02:48→21:19)
[2022-02-17] MEDS: Simethicone 80 MG TAB.CHEW PO (02:48)
[2022-02-17] MEDS: vancomycin HCL 1,250 MG in 0.9 % Sodium Chloride 250 ML 166.67 MG IV (02:56)
[2022-02-17] MEDS: Omeprazole 40 MG CAPSULE.DR PO (05:55)
[2022-02-17 06:39] LABS: Creatinine Clr Calc Pharmacy 108.4; Estimated Glomerular Filt Rate > 60
[2022-02-17 07:19] LABS: Glucose, Whole Blood 105 mg/dL (60-115)
[2022-02-17] MEDS: Lidocaine 4 % Patch ADH..PATCH 1 PATCH TRANSDERMA (08:24)
[2022-02-17] MEDS: Clindamycin Phosphate/D5W 600 MG/50 ML PIGGYBACK 100 MG IV ×2 (08:25→14:57)
[2022-02-17] MEDS: methADONE HCl 20 MG/2 ML ORAL.CONC 50 MG PO (08:25)
[2022-02-17] MEDS: polyethylene glycoL 3350 17 GM POWD.PACK PO (08:25)
[2022-02-17] MEDS: buPROPion HCL 75 MG TABLET 150 MG PO ×2 (08:26→20:56)
[2022-02-17] MEDS: Theophylline Anhydrous ER 300 MG TAB.ER.12H 450 MG PO ×2 (08:26→20:56)
[2022-02-17] MEDS: Gabapentin 300 MG CAPSULE PO ×2 (08:27→20:56)
[2022-02-17] MEDS: dilTIAZem HCL CD 180 MG CAP.ER.24H 360 MG PO (08:27)
[2022-02-17] MEDS: metFORMIN HCl ER 500 MG TAB.ER.24H 1000 MG PO (08:27)
[2022-02-17] MEDS: hydrALAZINE HCl 25 MG TABLET PO ×3 (08:27→20:56)
[2022-02-17] MEDS: Loratadine 10 MG TABLET PO (08:27)
[2022-02-17] MEDS: Salmeterol Xinafoate 50 MCG BLST.W.DEV 1 PUFF INHALE ×2 (08:30→19:36)
[2022-02-17] MEDS: 0.9 % Sodium Chloride Flush 3 ML SYRINGE IVFLUSH ×3 (08:32→20:57)
[2022-02-17] MEDS: lisinopriL 40 MG TABLET PO (08:38)
[2022-02-17] MEDS: Atorvastatin Calcium 10 MG TABLET PO (08:38)
[2022-02-17 11:07] LABS: Glucose, Whole Blood 160 mg/dL (60-115)
[2022-02-17] MEDS: Insulin Lispro 100 UNIT/ML 3 ML VIAL SUBCUT ×2 (11:58)
[2022-02-17] MEDS: vancomycin HCL 1,250 MG in 0.9 % Sodium Chloride 250 ML 166.66 MG IV (12:03)
[2022-02-17] MEDS: Ibuprofen 400 MG TABLET PO (12:17)
[2022-02-17] MEDS: Enoxaparin Sodium 40 MG/0.4 ML SYRINGE SUBCUT (14:57)
--- NOTE | 2022-02-17 15:20 | P.PNIM_ITS ---
Subjective Subjective Date of Service: 02/17/22 Interval History: feeling jittery this morning, feels not ready for discharge home, right leg swelling and redness has improved but not completely resolved, no overnight events, no fevers, no chills, no nausea, no vomiting, no worsening shortness of breath. Review of Systems [employer] no headache no dizziness CVS no chest pain, no palpitation General no fevers, no chills Review of Systems: Yes all other systems are reviewed and are negative Physical Exam Vital Signs: Vital Signs: Last Vital Signs Temp 98.5 F 02/17/22 15:09 Pulse 109 H 02/17/22 15:09 Resp 19 02/17/22 15:09 BP 135/69 02/17/22 15:09 Pulse Ox 92 02/17/22 15:09 O2 Del Method 02/17/22 15:09 O2 Flow Rate 2.0 02/17/22 15:09 BMI result Body Mass Index 37.5 Const: Other: General: AOx3, in no acute distress Resp: CTA bilaterally CVS: S1, S2, RRR GI: ? Abdomen soft nontender obese bowel sounds positive no rebound no rigidity Neuro: Motor grossly intact Musculoskeletal: Tenderness to palpation of lower spine and paravertebral muscles improved, No erythema or lesions on the lower back Extremities:? less? hyperemia and swelling of right lower extremity, right thigh redness resolved, minimal tenderness to palpation. Psych: Appropriate affect Objective Data Active Medications Acetaminophen (Acetaminophen 325 Mg Tablet) 650 mg PO Q6H PRN PRN Reason: Pain, Mild (Pain Scale 1-3) Last Admin: 02/13/22 23:56 Dose: 650 mg Documented By: BRITTNEY-BETHICL Albuterol Sulfate (Albuterol Sulfate 90 Mcg 8 Gm Inhaler) 2 puff INHALE Q4H PRN PRN Reason: Shortness Of Breath Or Wheezing Albuterol/Ipratropium (Albuterol/Iprat 2.5/0.5mg 3 Ml Ampul.Neb) 3 ml INHALE RQ4H PRN PRN Reason: sob Last Admin: 02/16/22 22:43 Dose: 3 ml Documented By: GRICEL Atorvastatin Calcium (Atorvastatin Calcium 10 Mg Tablet) 10 mg PO DAILY ANA Last Admin: 02/17/22 08:38 Dose: 10 mg Documented By: GRACE Bupropion HCl (Bupropion Hcl 75 Mg Tablet) 150 mg PO BID [facility] Last Admin: 02/17/22 08:26 Dose: 150 mg Documented By: GRACE Dextrose (Dextrose 50 % 25 Gm/50 Ml Syringe) 25 gm IVPUSH Q15M PRN; Protocol PRN Reason: per Hypoglycemia Standing Ord. Diltiazem HCl (Diltiazem Hcl Cd 180 Mg Cap.Er.24h) 360 mg PO DAILY [facility]; Protocol Last Admin: 02/17/22 08:27 Dose: 360 mg Documented By: GRACE Docusate Sodium (Docusate Sodium 100 Mg Capsule) 100 mg PO DAILY PRN PRN Reason: Constipation Enoxaparin Sodium (Enoxaparin Sodium 40 Mg/0.4 Ml Syringe) 40 mg SUBCUT Q24H [facility] Last Admin: 02/17/22 14:57 Dose: 40 mg Documented By: GRACE Gabapentin (Gabapentin 300 Mg Capsule) 300 mg PO BID [facility] Last Admin: 02/17/22 08:27 Dose: 300 mg Documented By: GRACE Glucose (Glucose Gel 15 Gm Gel..Gram.) 15 gm PO Q15M PRN; Protocol PRN Reason: per Hypoglycemia Standing Ord. Hydralazine HCl (Hydralazine Hcl 25 Mg Tablet) 25 mg PO TID [facility]; Protocol Last Admin: 02/17/22 14:57 Dose: 25 mg Documented By: GRACE Clindamycin Phosphate (Cleocin) 600 mg in 50 mls @ 100 mls/hr IV Q8H [facility] Last Admin: 02/17/22 14:57 Dose: 100 mls/hr Documented By: GRACE Vancomycin HCl 1,250 mg/ (Sodium Chloride) 250 mls @ 166.667 mls/hr IV Q8H [facility] Last Infusion: 02/17/22 14:18 Dose: 0 mls/hr Documented By: GRACE Ibuprofen (Ibuprofen 400 Mg Tablet) 400 mg PO Q6H PRN PRN Reason: Pain, Moderate (Pain Scale 4-6 Last Admin: 02/17/22 12:17 Dose: 400 mg Documented By: GRACE Insulin Glargine (Insulin Glargine,Hum.Rec.Anlog 100 Unit/Ml 10 Ml Vial) 35 unit SUBCUT BEDTIME [facility] Last Admin: 02/16/22 20:10 Dose: 35 unit Documented By: ELIESER Insulin Human Lispro (Insulin Lispro 100 Unit/Ml 3 Ml Vial) 4 unit SUBCUT TIDAC [facility] Last Admin: 02/17/22 11:58 Dose: 4 unit Documented By: GRACE Insulin Human Lispro (Insulin Lispro 100 Unit/Ml 3 Ml Vial) 0 unit SUBCUT QIDACHS [facility]; Protocol Last Admin: 02/17/22 11:58 Dose: 4 unit Documented By: GRACE Lidocaine (Lidocaine 4 % Patch Adh..Patch) 1 patch TRANSDERMA DAILY [facility]; Protocol Last Admin: 02/17/22 08:24 Dose: 1 patch Documented By: GRACE Lisinopril (Lisinopril 40 Mg Tablet) 40 mg PO DAILY [facility]; Protocol Last Admin: 02/17/22 08:38 Dose: 40 mg Documented By: GRACE Loratadine (Loratadine 10 Mg Tablet) 10 mg PO DAILY [facility] Last Admin: 02/17/22 08:27 Dose: 10 mg Documented By: GRACE Metformin HCl (Metformin Hcl Er 500 Mg Tab.Er.24h) 1,000 mg PO BID [facility] Last Admin: 02/17/22 08:27 Dose: 1,000 mg Documented By: GRACE Methadone HCl (Methadone Hcl 20 Mg/2 Ml Oral.Conc) 50 mg PO DAILY [facility] Last Admin: 02/17/22 08:25 Dose: 50 mg Documented By: GRACE Comments: Montelukast Sodium (Montelukast Sodium 10 Mg Tablet) 10 mg PO BEDTIME [facility] Last Admin: 02/16/22 20:09 Dose: 10 mg Documented By: ELIESER Non-Formulary Medication (Budesonide) 0.5 mg INHALE BID [facility] Non-Formulary Medication (Glecaprevir-Pibrentasvir [Mavyret]) 3 tab PO DAILY [facility] Non-Formulary Medication (Roflumilast [Daliresp]) 1 tab PO DAILY [facility] Omeprazole (Omeprazole 40 Mg Capsule.Dr) 40 mg PO DAILY@0630 [facility] Last Admin: 02/17/22 05:55 Dose: 40 mg Documented By: ELIESER Ondansetron HCl (Ondansetron Hcl 4 Mg/2 Ml Vial) 4 mg IVPUSH Q8H PRN PRN Reason: Nausea and Vomiting Last Admin: 02/17/22 02:48 Dose: 4 mg Documented By: ELIESER Pharmacy Consult (Consult Rx Perform Med Rec) 1 each MISCELLANE ONCE PRN PRN Reason: Consult order Pharmacy Consult (Consult Rx Vancomycin Dosing) 1 each MISCELLANE DAILY PRN PRN Reason: Consult order Pharmacy Consult (Consult Rx Vancomycin Dosing) 1 each MISCELLANE DAILY PRN PRN Reason: Consult order Polyethylene Glycol (Polyethylene Glycol 3350 17 Gm Powd.Pack) 17 gm PO DAILY [facility] Last Admin: 02/17/22 08:25 Dose: 17 gm Documented By: GRACE Salmeterol Xinafoate (Salmeterol Xinafoate 50 Mcg Blst.W.Dev) 1 puff INHALE RBID [facility] Last Admin: 02/17/22 08:30 Dose: 1 puff Documented By: PIO Simethicone (Simethicone 80 Mg Tab.Chew) 80 mg PO QIDWMHS PRN PRN Reason: Abdominal Distention Last Admin: 02/17/22 02:48 Dose: 80 mg Documented By: ELIESER Sodium Chloride (0.9 % Sodium Chloride Flush 3 Ml Syringe) 3 ml IVFLUSH QSHIFT [facility] Last Admin: 02/17/22 08:36 Dose: 3 ml Documented By: GRACE Theophylline (Theophylline Anhydrous Er 300 Mg Tab.Er.12h) 450 mg PO Q12H [facility] Last Admin: 02/17/22 08:26 Dose: 450 mg Documented By: GRACE Tiotropium Empire (Tiotropium Empire 18 Mcg Cap.W.Dev) 1 puff INHALE RDAILY [facility] Last Admin: 02/17/22 08:32 Dose: 1 puff Documented By: PIO Labs CBC & Chem 7: 02/15/22 10:23 02/17/22 05:46 Labs: Laboratory Results - last 24 hr 02/16/22 02/16/22 02/17/22 15:44 19:21 05:46 Estim Creat Clear Calc 108.4 Estimated GFR > 60 POC Glucose 139 H 123 H 02/17/22 02/17/22 07:11 10:59 Estim Creat Clear Calc Estimated GFR POC Glucose 105 160 H Microbiology Microbiology Results: Microbiology 02/13/22 12:30 Blood Culture - Final Blood - Venous Coag negative Staphylococcus Assessment and Plan (1) Cellulitis: Status: Acute (2) COPD (chronic obstructive pulmonary disease): Status: Acute Plan 52-year-old female with a PMH of asthma-COPD overlap syndrome on BiPAP at home, chronic respiratory failure on 2.5L baseline oxygen, insulin-dependent DM2, HTN, and HLD who presents to the ED complaining of right leg redness and swelling. Pt originally prescribed doxycycline for treatment of cellulitis and completed the full course of abx without resolution of her symptoms. Pt was admitted to the hospital for treatment for cellulitis requiring IV abx due to failed outpatient therapy. # cellulitis of right leg -- significant improvement in erythema now localized to right lower extremity only persistent mild swelling -- failed outpatient therapy with a course of doxycycline -- on vanco 1g IV daily and clindamycin 600mg IV q8h day 4 blood cultures x2 negative will DC a vancomycin and transition to by mouth antibiotic upon discharge to by mouth amoxicillin -- pt does not meet sepsis criteria: pt is on BiPAP at home, has chronically elevated WBC d/t steroid use and underlying COPD, and has chronically elevated HR chronically elevated WBC. # back pain -- likely muscular continue Tylenol and lidocaine patch -- CT of abdomen and pelvis on 11/02/21 showed?moderate multilevel degenerative spondyloarthropathy of the lumbar spine with moderate to severe spinal canal stenoses from L3-S1. # right lower quadrant abdominal pain -- likely due to constipation, which pt has chronically, pain improved after bowel movement continue stool softeners # COPD -- no acute exacerbation continue DuoNeb and home inhalers, chronically on 2.5 L of oxygen and BiPAP at home # leukocytosis -- chronically elevated,likely secondary to steroid use and underlying COPD # diabetes blood sugars blood sugars on lower side continue insulin sliding scale, schedule pre meal insulin and metformin, and Lantus 35 units # hypertension -- stable blood pressure, continue home meds # Mental health -- continue home meds # Diabetic neuropathy, unspecified -- continue gabapentin # History of substance abuse -- continue methadone DVT prophylaxis with Lovenox Full code Pt will continue to receive another day of IV abx treatement for cellulitis. If pt continues to improve, she smita be discharged tomorrow on PO amox Quality Stroke Does the patient have a stroke diagnosis?: No VTE Prior VTE?: No VTE Risk Level:: Medical - moderate - high VTE Device Contraindication: Treatment Not Indicated VTE Drug Contraindication: N/A - Med Ordered
[2022-02-17 15:48] LABS: Glucose, Whole Blood 96 mg/dL (60-115)
[2022-02-17 19:46] LABS: Glucose, Whole Blood 127 mg/dL (60-115)
[2022-02-17] MEDS: Insulin Glargine,Hum.rec.anlog 100 UNIT/ML 10 ML VIAL 35 UNIT SUBCUT (20:55)
[2022-02-17] MEDS: Montelukast Sodium 10 MG TABLET PO (20:57)
[2022-02-18] MEDS: Clindamycin Phosphate/D5W 600 MG/50 ML PIGGYBACK 100 MG IV ×2 (01:06→08:01)
[2022-02-18] MEDS: Albuterol/Iprat 2.5/0.5MG 3 ML AMPUL.NEB INHALE (03:27)
[2022-02-18 03:34] VITALS: PULSE 101; RESP 20; O2SAT 94
[2022-02-18 03:57] VITALS: BP 145/70; PULSE 99; RESP 18; TEMP 36.6; O2SAT 96
[2022-02-18] MEDS: Omeprazole 40 MG CAPSULE.DR PO (05:52)
[2022-02-18 07:37] LABS: Glucose, Whole Blood 134 mg/dL (60-115)
[2022-02-18 07:43] VITALS: BP 148/76; PULSE 122; RESP 19; TEMP 36.6; O2SAT 96
[2022-02-18] MEDS: methADONE HCl 20 MG/2 ML ORAL.CONC 50 MG PO (07:56)
[2022-02-18] MEDS: Theophylline Anhydrous ER 300 MG TAB.ER.12H 450 MG PO (07:57)
[2022-02-18] MEDS: Atorvastatin Calcium 10 MG TABLET PO (07:59)
[2022-02-18] MEDS: Loratadine 10 MG TABLET PO (07:59)
[2022-02-18] MEDS: lisinopriL 40 MG TABLET PO (08:00)
[2022-02-18] MEDS: dilTIAZem HCL CD 180 MG CAP.ER.24H 360 MG PO (08:00)
[2022-02-18] MEDS: Gabapentin 300 MG CAPSULE PO (08:00)
[2022-02-18] MEDS: Lidocaine 4 % Patch ADH..PATCH 1 PATCH TRANSDERMA (08:01)
[2022-02-18] MEDS: polyethylene glycoL 3350 17 GM POWD.PACK PO (08:01)
[2022-02-18] MEDS: Insulin Lispro 100 UNIT/ML 3 ML VIAL SUBCUT ×2 (08:01→12:06)
[2022-02-18] MEDS: 0.9 % Sodium Chloride Flush 3 ML SYRINGE IVFLUSH (08:01)
[2022-02-18] MEDS: hydrALAZINE HCl 25 MG TABLET PO (08:01)
[2022-02-18] MEDS: buPROPion HCL 75 MG TABLET 150 MG PO (08:02)
[2022-02-18 08:04] LABS: Creatinine Clr Calc Pharmacy 108.4; Estimated Glomerular Filt Rate > 60
[2022-02-18] MEDS: Salmeterol Xinafoate 50 MCG BLST.W.DEV 1 PUFF INHALE (08:44)
[2022-02-18 08:45] VITALS: PULSE 120; RESP 18; O2SAT 96
[2022-02-18] MEDS: Ibuprofen 400 MG TABLET PO (10:29)
[2022-02-18] MEDS: Amoxicillin 500 MG CAPSULE PO (10:30)
[2022-02-18 11:32] LABS: Glucose, Whole Blood 123 mg/dL (60-115)
--- NOTE | 2022-02-18 13:01 | MHC.CM.PN ---
PATIENT UNABLE TO RECALL [facility] NAME AND NO REFERRALS PLACED HAVE AGREED THAT SHE IS ACTIVE OR AGREED TO ACCEPT.
--- NOTE | 2022-02-18 13:51 | P.DS_ITS ---
DS: Providers Provider Date of Service: 02/18/22 Date of admission: 02/13/22 15:50 Primary care physician: Kelli Benavides MD Consults: 02/14/22 15:21 Consult to Infectious Diseases Routine Consulting Provider: Joellen Oneill Reason for consultation: extensive cellulitis Has provider been notified: No DS: Diagnosis Discharge Diagnosis (1) Cellulitis: Status: Acute (2) COPD (chronic obstructive pulmonary disease): Status: Acute DS: Summary Hospital Course Hospital Course: Date of Service: 02/13/22 Attending physician on admission: Vel Ramires Chief Complaint: Right leg redness Pt is a 52-year-old female with a PMH of asthma-COPD overlap syndrome, chronic respiratory failure on 2.5L baseline oxygen, insulin-dependent DM2, HTN, and HLD who presents to the ED complaining of right leg redness and swelling. Pt first made these complaints to her pulminologist who prescribed her doxycycline on 01/25/22. She completed this course of abx without resolution of her symptoms. She visited her PCP earlier today about her leg and he sent her to the ED for IV abx. Pt denies F/C, N/V, diaphoresis. Pt also complains about lower back pain, which first began some weeks ago after falling on her knees at home and made worse some weeks later when she bent over to pick something up. Back pain has been particularly bad for the past week and located primarily on both sides of her back. She denies saddle anesthisia, change in bowel or bladder function, new numbness or tingling in legs. She denies chest pain/pressure, palpitations, SOB. No abdominal pain. In the ED pt's labs were significant for chronic leukocytosis at 15.1. Venous duplex ultrasound showed no sign of DVT in the bilateral lower extremity, and x- ray of right tibia and fibula found small radiopaque soft tissue foreign bodies in the upper lateral lower leg and soft tissue swelling. Blood cultures pending. Pt will be admitted to the hospital for treatment of right leg cellulitis that failed outpatient therapy and now requires IV abx. hospital course? 52-year-old female with a PMH of asthma-COPD overlap syndrome on BiPAP at home, chronic respiratory failure on 2.5L baseline oxygen, insulin-dependent DM2, HTN, and HLD who presents to the ED complaining of right leg redness and swelling. Pt originally prescribed doxycycline for treatment of cellulitis and completed the full course of abx without resolution of her symptoms. Pt was admitted to the hospital for treatment for cellulitis requiring IV abx due to failed outpatient therapy. # cellulitis of right leg extending to thigh with no evidence of sepsis patient admitted to medical floor treated with IV vancomycin and clindamycin blood cultures x2 remain negative patient responded well to above treatment thigh redness and swelling has resolved, mild right lower extremity redness persist patient has been strongly recommended to keep leg elevated patient seen by infectious disease she recommends amoxicillin 500 t.i.d. for 1 more week # back pain occurred after patient fell on her knees likely muscular continue Tylenol and lidocaine patch CT of abdomen and pelvis on 11/02/21 showed?moderate multilevel degenerative spondyloarthropathy of the lumbar spine with moderate to severe spinal canal stenoses from L3-S1, likely contributing to pain. # right lower quadrant abdominal pain likely due to constipation, which pt has chronically, pain improved after bowel movement patient placed on MiraLax 17 g daily # COPD-- no acute exacerbation continue DuoNeb and home inhalers, chronically on 2.5 L of oxygen and BiPAP at home # leukocytosis-- chronically elevated,likely secondary to steroid use # diabetes blood sugars?on lower side? continue insulin sliding scale, schedule pre meal insulin and metformin,? and Lantus 35 units, does lowered from baseline dose of 45 units # hypertension-- stable blood pressure, continue home meds Cardizem CD 360 mg daily history of chronic mild tachycardia likely due to anxiety # Mental health-- continue home meds # Diabetic neuropathy, unspecified-- continue gabapentin # History of substance abuse-- continue methadone Time Spent with Patient Time attestation: Total time spent providing and/or coordinating discharge services: Discharge coordination time: Greater than 30 minutes Quality: Safe Use of Opioids Does Pt have an Active Cancer Diagnosis on the Problem List?: No Quality: Stroke Does the patient have a stroke diagnosis?: No Physical Exam Vital Signs: Vital Signs: Last Vital Signs Temp 97.9 F 02/18/22 07:43 Pulse 120 H 02/18/22 08:45 Resp 18 02/18/22 08:45 BP 148/76 H 02/18/22 07:43 Pulse Ox 96 02/18/22 07:43 O2 Del Method 02/18/22 07:43 O2 Flow Rate 2.0 02/18/22 07:43 BMI result Body Mass Index 37.5 Const: Other: General: AOx3, in no acute distress Resp: CTA bilaterally CVS: S1, S2, RRR GI: ? Abdomen soft nontender obese bowel sounds positive no rebound no rigidity Neuro: Motor grossly intact Musculoskeletal: Tenderness to palpation of lower spine and paravertebral muscles? improved, No erythema or lesions on the lower back Extremities:? less? hyperemia and swelling of right lower extremity,? right thigh redness resolved, right knee well-healed scar, no drainage Psych: Appropriate affect DS: Data Data Completed and Pending Completed studies during hospitalization [Text1]: Procedures Assistance with Respiratory Ventilation, 24-96 Consecutive Hours, Continuous Positive Airway Pressure (05/18/21) Assistance with Respiratory Ventilation, Less than 24 Consecutive Hours, Continuous Positive Airway Pressure (12/21/21) Insertion of Endotracheal Airway into Trachea, Via Natural or Artificial Opening (12/21/21) Insertion of Infusion Device into Right Atrium, Percutaneous Approach (12/21/21) Insertion of Infusion Device into Superior Vena Cava, Percutaneous Approach (11/02/21) Introduction of Vasopressor into Peripheral Vein, Percutaneous Approach (12/21/21) Respiratory Ventilation, 24-96 Consecutive Hours (12/21/21) Ultrasonography of Superior Vena Cava, Guidance (12/21/21) Labs on day of discharge: Laboratory Results - last 24 hr 02/17/22 02/17/22 02/18/22 15:11 19:13 06:40 Creatinine 0.62 Estim Creat Clear Calc 108.4 Estimated GFR > 60 POC Glucose 96 127 H 02/18/22 02/18/22 07:21 11:18 Creatinine Estim Creat Clear Calc Estimated GFR POC Glucose 134 H 123 H Preliminary micro results at discharge 02/13/22 13:41 Blood Culture - Preliminary Blood - Venous No growth after 48 hours. Discharge Plan Discharge Anticipated Discharge Date/Time: 02/18/22 13:42 Patient Disposition: Home Health Service Discharge Diagnosis: right lower extremity cellulitis Referrals: Kelli Benavides MD [Primary Care Provider] - 1 Week Discharge Medications: New amoxicillin 500 mg Capsule 500 mg PO Q8H Qty: 21 0RF polyethylene glycol 3350 [Miralax] 17 gram/dose powder 17 g PO DAILY Qty: 119 0RF Continued Spiriva with HandiHaler 18 mcg capsule, w/inhalation device 1 cap inhalation DAILY Qty: 30 11RF gabapentin 300 mg capsule 300 mg PO BID 30 Days Qty: 60 3RF diclofenac potassium 50 mg tablet 50 mg PO BID 30 Days Qty: 60 0RF ipratropium-albuterol 0.5 mg-3 mg(2.5 mg base)/3 mL solution for nebulization 3 ml PO Q4H PRN (Reason: for wheezing) Qty: 540 6RF diltiazem HCl [Tiadylt ER] 360 mg capsule,extended release 24 hr 1 cap PO DAILY rosuvastatin 5 mg tablet 1 tab PO BEDTIME roflumilast [Daliresp] 500 mcg tablet 1 tab PO DAILY insulin lispro [Humalog U-100 Insulin] 100 unit/mL solution See Protocol subcut TIDAC Protocol: Insulin Correction Scale Less than or equal to 110 ---- Give (units): 0 111 to 150 Give (units): 0 151 to 200 Give (units): 2 201 to 250 Give (units): 4 251 to 300 Give (units): 6 301 to 350 Give (units): 8 Greater than 350 Give (units): 10 Call MD if Blood Glucose > : 350 metformin 500 mg tablet extended release 24 hr 2 tab PO BID hydralazine 25 mg tablet 1 tab PO TID insulin lispro 100 unit/mL solution 4 unit subcut TIDAC Mavyret 100-40 mg tablet 3 tab PO DAILY omeprazole 40 mg capsule,delayed release(DR/EC) 40 mg PO DAILY@0630 methadone 10 mg/mL Concentrate 49 mg PO DAILY ergocalciferol (vitamin D2) 1,250 mcg (50,000 unit) capsule 1,250 mcg PO QWEEK lisinopril 40 mg tablet 1 tab PO DAILY ondansetron 4 mg tablet,disintegrating 4 mg PO Q6-8H PRN (Reason: nausea and vomiting) Qty: 14 0RF lidocaine [Lidoderm] 5 % adhesive patch,medicated 1 patch topical DAILY Serevent Diskus 50 mcg/dose Blister With Device 1 inh inhalation RBID 30 Days Qty: 60 2RF simethicone [Gas Relief (simethicone)] 80 mg Tablet,Chewable 80 mg PO QIDWMHS PRN (Reason: Abdominal Distention) Qty: 30 0RF montelukast 10 mg tablet 10 mg PO BEDTIME albuterol sulfate [ProAir HFA] 90 mcg/actuation HFA aerosol inhaler 2 puff inhalation Q4H PRN (Reason: Shortness Of Breath Or Wheezing) loratadine [Claritin] 10 mg tablet 10 mg PO DAILY Brovana 15 mcg/2 mL solution for nebulization 2 ml inhalation Q12H 30 Days Qty: 120 11RF budesonide 0.5 mg/2 mL suspension for nebulization 0.5 mg inhalation BID Qty: 120 11RF bupropion HCl 75 mg tablet 150 mg PO BID 30 Days Qty: 120 3RF theophylline 450 mg tablet extended release 12 hr 450 mg PO Q12H 30 Days Qty: 60 6RF Changed insulin glargine [Lantus U-100 Insulin] 100 unit/mL solution 35 unit subcut BEDTIME Qty: 10 0RF Discontinued doxycycline monohydrate 100 mg tablet 100 mg PO BID 14 Days Qty: 28 0RF Discharge Orders: Discharge Order (Routine); Ordered 02/18/22 Ordered By: Vel Ramires Diet: Diabetic diet Activity on Discharge: As tolerated Stand Alone Forms: Patient Portal Discharge page Care Plan Goals: right lower extremity redness is improving, keep right leg elevated take amoxicillin 500 mg 3 times a day for 7 days back pain is musculoskeletal continue Tylenol and lidocaine patch dose of Lantus insulin reduced to 35 units since blood sugars noted to be stable if blood sugar elevated at home resume home dose of 45 units follow low- calorie diet continue oxygen and BiPAP at home as before avoid constipation take MiraLax 17 g daily Health Concerns: continue all home medication Plan of Treatment: outpatient follow-up with primary care physician and pulmonology Assessment: as above
[2022-02-18 14:21] VITALS: BP 164/80; PULSE 125; RESP 19; TEMP 36; O2SAT 95
[2022-02-18] MEDS: Simethicone 80 MG TAB.CHEW PO (14:38)
== END 2022-02-18 15:40 | disposition home health service (06) | DRG 383 ==
LOC: HO.ED 14:09 → HO.EDOVER 16:03 → HO.S3 02-14 17:33
PROVIDERS: Internal Medicine; Admitting Provider Student in an Organized Health Care Education/Training Program; Emergency Provider Student in an Organized Health Care Education/Training Program; PCP Family Medicine; Visit Provider Hospitalist
DX: L03.115 Cellulitis of right lower limb (principal); J96.10 Chronic respiratory failure, unspecified whether with hypoxia or hypercapnia; E11.40 Type 2 diabetes mellitus with diabetic neuropathy, unspecified; E78.5 Hyperlipidemia, unspecified; F11.20 Opioid dependence, uncomplicated; D72.829 Elevated white blood cell count, unspecified; I10 Essential (primary) hypertension; K59.09 Other constipation; J44.9 Chronic obstructive pulmonary disease, unspecified; M47.816 Spondylosis without myelopathy or radiculopathy, lumbar region; F39 Unspecified mood [affective] disorder; M48.061 Spinal stenosis, lumbar region without neurogenic claudication; Z99.81 Dependence on supplemental oxygen; Z87.891 Personal history of nicotine dependence; Z79.4 Long term (current) use of insulin; Z79.84 Long term (current) use of oral hypoglycemic drugs; Z79.899 Other long term (current) drug therapy
CPT/HCPCS: 0241U; 36415; 36600; 73590; 80048; 80202; 82565; 82803; 82947; 83605; 83880; 85025; 85027; 85379; 87040; 87147; 87205; 93005; 93970; 94660; 99285; J0696; J1650; J2405; J3370

== ENCOUNTER 2022-03-05 09:59 | Outpatient (REF) | payer MEDICAID, SELFPAY | END 2022-03-05 10:00 | disposition home or self-care (01) | LOC: HO.MDS 09:59 | PROVIDERS: Visit Provider Hospitalist | DX: D80.1 Nonfamilial hypogammaglobulinemia (principal) | CPT/HCPCS: 96365; 96366; J1569 ==

== ENCOUNTER 2022-03-26 10:35 | Outpatient (REF) | payer MEDICAID, SELFPAY ==
[2022-03-26 11:27] LABS: COVID-19 Test Positive (Negative); IDNOW Serial# 6674DD1D
== END 2022-03-26 10:36 | disposition home or self-care (01) ==
LOC: HO.LAB 10:35
PROVIDERS: Visit Provider Internal Medicine
DX: Z20.822 Contact with and (suspected) exposure to COVID-19 (principal)
CPT/HCPCS: 87635; C9803

== ENCOUNTER 2022-04-05 10:22 | Outpatient (REF) | payer MEDICAID, SELFPAY ==
[2022-04-05 11:30] LABS: MANUAL DIFF FLAG NO
[2022-04-05 11:35] LABS: Basophils Absolute Auto 0.1 X10*3/uL (0.0-0.2); Basophils Percent Auto 0.4 % (0-2); Eosinophils Absolute Auto 0.2 X10*3/uL (0.0-0.4); Eosinophils Percent Auto 1.4 % (0-4); Hematocrit 36.6 % (37.0-47.0); Hemoglobin 11.4 g/dl (12.0-16.0); Imm Gran Abs Auto 0.06 X10*3/uL (0.00-0.03); Imm Gran Pct Auto 0.4 % (0.0-0.4); Lymphocytes Absolute Auto 1.1 X10*3/uL (1.2-4.9); Lymphocytes Percent Auto 8.2 % (20-40); Mean Corpuscular HGB Conc 31.1 g/dl (31.0-35.0); Mean Corpuscular Hemoglobin 27.2 pg (27.0-33.0); Mean Corpuscular Volume 87.4 fL (80.0-98.0); Mean Platelet Volume 8.8 fL (9.4-12.3); Monocytes Absolute Auto 0.7 X10*3/uL (0.1-1.2); Monocytes Percent Auto 4.9 % (2-11); Neutrophils Absolute Auto 11.7 x10*3/uL (2.0-8.3); Neutrophils Percent Auto 84.7 % (45-73); Platelet Count 279 X10*3/uL (160-400); Red Blood Count 4.19 X10*6/uL (4.20-5.50); Red Cell Distribution Width 13.5 % (11.0-16.0); White Blood Count 13.8 X10*3/uL (4.8-10.8)
[2022-04-05 11:37] LABS: Venous Blood Gas Refer to POC result
[2022-04-05 11:39] LABS: VBG Base Excess 13.1 mmol/L; VBG HCO3 41 mmol/L (22-26); VBG pCO2 67 mmHg; VBG pH 7.39 (7.32-7.43); VBG pO2 80 mmHg
[2022-04-05 12:44] LABS: Alanine Aminotransferase 10 U/L (0-31); Albumin Level 3.9 g/dL (3.5-5.0); Alkaline Phosphatase 71 U/L (39-117); Anion Gap 11 (12-20); Aspartate Amino Transferase 14 U/L (5-31); Bilirubin Direct < 0.2 mg/dL (0.0-0.5); Bilirubin Total 0.2 mg/dL (0.0-1.0); Blood Urea Nitrogen 15 mg/dL (9-16); Calcium 9.4 mg/dL (8.4-10.2); Carbon Dioxide 36 mmol/L (22-29); Chloride 97 mmol/L (96-108); Estimated Glomerular Filt Rate > 60; Glucose Random 103 mg/dL (60-115); Potassium 3.5 mmol/L (3.3-5.1); Sodium 140 mmol/L (135-145); Total Protein 6.5 g/dL (6.5-8.0)
[2022-04-06 04:34] LABS: Theophylline < 0.8 MG/L ((10-20))
== END 2022-04-05 10:23 | disposition home or self-care (01) ==
LOC: HO.LAB 10:22
PROVIDERS: PCP Family Medicine; Visit Provider Hospitalist
DX: J44.9 Chronic obstructive pulmonary disease, unspecified (principal); J96.11 Chronic respiratory failure with hypoxia; J96.12 Chronic respiratory failure with hypercapnia; R91.1 Solitary pulmonary nodule; D80.1 Nonfamilial hypogammaglobulinemia; Z79.899 Other long term (current) drug therapy; Z87.891 Personal history of nicotine dependence
CPT/HCPCS: 36415; 80048; 80076; 80198; 82803; 85025; 94618; 99212

== ENCOUNTER 2022-04-07 12:41 | Inpatient (IN) | payer MEDICAID, SELFPAY ==
[2022-04-07] VITALS (7 sets, daily range): BP systolic 121–153; BP diastolic 58–92; PULSE 75–107; RESP 15–20; TEMP 36.5–36.6; O2SAT 86–98; BMI 38.0
--- NOTE | ~2022-04-07 | XR_ITS ---
EXAMINATION: XR CHEST CLINICAL INFORMATION: Hypoxia COMPARISON: January 03, 2022 TECHNIQUE: AP portable view of the chest was obtained. FINDINGS: No significant abnormality is noted involving the heart, lungs, mediastinum, bony thorax or soft tissues. Old bilateral rib fractures. XR/XR chest 1V IMPRESSION: No acute disease.
--- NOTE | 2022-04-07 12:44 | ECG_ITS ---
Test Reason : HYPOXIA Blood Pressure : / mmHG Vent. Rate : 098 BPM Atrial Rate : 098 BPM P-R Int : 142 ms QRS Dur : 110 ms QT Int : 380 ms P-R-T Axes : 144 053 120 degrees QTc Int : 485 ms Ectopic atrial vs sinus rhythm, difficult to say Incomplete right bundle branch block Nonspecific T wave abnormality Prolonged QT Abnormal ECG When compared with ECG of 13-FEB-2022 13:50, Ectopic atrial rhythm has replaced Sinus rhythm Referred By: Quoc Truong Electronically Signed By:RONALD SCHAFER
--- NOTE | 2022-04-07 12:48 | ED.SOB ---
HPI - SOB/Dyspnea General Chief Complaint: Dyspnea Stated Complaint: difficulty breathing Time Seen by Provider: 04/07/22 12:44 Source: patient Mode of arrival: ambulatory Limitations: no limitations History of Present Illness HPI Narrative: This is 52 yo female with COPD 02 dependent presented c/o SOB,she arrive on bipapp by EMS,she was hypoxic in the field MD elicited complaint: shortness of breath and cough Pertinent past history: COPD Onset (ago): day(s) (1) Timing: constant Exacerbating factors: nothing Relieving factors: nothing Known history of: COPD Associated symptoms: denies other symptoms Related Data Home Medications Medication Instructions Recorded Confirmed albuterol sulfate 90 mcg/actuation 2 puff inhalation Q4H PRN 12/30/19 02/13/22 aerosol inhaler (ProAir HFA) Shortness Of Breath Or Wheezing loratadine 10 mg tablet (Claritin) 10 mg PO DAILY 12/30/19 02/13/22 montelukast 10 mg tablet 10 mg PO BEDTIME 12/30/19 02/13/22 diltiazem HCl 360 mg capsule,24 360 mg PO DAILY 11/16/20 02/13/22 hr,extended release (Tiadylt ER) roflumilast 500 mcg tablet 500 mcg PO DAILY 11/16/20 02/13/22 (Daliresp) rosuvastatin 5 mg tablet 5 mg PO BEDTIME 11/16/20 02/13/22 insulin lispro 100 unit/mL See Protocol subcut TIDAC 12/14/20 02/13/22 subcutaneous solution (Humalog U-100 Insulin) metformin 500 mg tablet,extended 1,000 mg PO BID 05/18/21 02/13/22 release 24 hr ergocalciferol (vitamin D2) 1,250 1,250 mcg PO QWEEK 06/06/21 02/13/22 mcg (50,000 unit) capsule methadone 10 mg/mL oral concentrate 49 mg PO DAILY 06/06/21 02/13/22 lisinopril 40 mg tablet 40 mg PO DAILY 07/30/21 02/13/22 glecaprevir 100 mg-pibrentasvir 40 3 tab PO DAILY 11/02/21 02/13/22 mg tablet (Mavyret) hydralazine 25 mg tablet 1 tab PO TID 11/02/21 02/13/22 insulin lispro 100 unit/mL 4 unit subcut TIDAC 11/02/21 02/13/22 subcutaneous solution omeprazole 40 mg capsule,delayed 40 mg PO DAILY@0630 11/02/21 02/13/22 release lidocaine 5 % topical patch 1 patch topical DAILY 12/08/21 02/13/22 (Lidoderm) ibuprofen 600 mg tablet 600 mg PO TID 04/07/22 prednisone 10 mg tablet 10 mg PO BEDTIME 04/07/22 prednisone 10 mg tablet 20 mg PO DAILY 04/07/22 Previous Rx's Medication Instructions Recorded tiotropium bromide 18 mcg capsule 1 cap inhalation DAILY #30 ea 06/25/21 with inhalation device (Spiriva with HandiHaler) arformoterol 15 mcg/2 mL solution 2 ml inhalation Q12H 30 days #120 07/24/21 for nebulization (Brovana) mL budesonide 0.5 mg/2 mL suspension 0.5 mg (2 mL) inhalation BID #120 07/24/21 for nebulization mL diclofenac potassium 50 mg tablet 50 mg PO BID 30 days #60 tabs 10/08/21 ondansetron 4 mg disintegrating 4 mg PO Q6-8H PRN nausea and 12/07/21 tablet vomiting #14 tabs bupropion HCl 75 mg tablet 150 mg PO BID 30 days #120 tabs 12/14/21 theophylline 450 mg 450 mg PO Q12H 30 days #60 tabs 12/14/21 tablet,extended release,12 hr ipratropium 0.5 mg-albuterol 3 mg 3 ml PO Q4H PRN for wheezing #540 12/20/21 (2.5 mg base)/3 mL nebulization mL soln salmeterol 50 mcg/dose blister 1 inh inhalation RBID 30 days #60 01/05/22 powder for inhalation (Serevent ea Diskus) simethicone 80 mg chewable tablet 80 mg PO QIDWMHS PRN Abdominal 01/05/22 (Gas Relief (simethicone)) Distention #30 tabs insulin glargine 100 unit/mL 35 unit (0.35 mL) subcut BEDTIME 02/18/22 subcutaneous solution (Lantus #10 mL U-100 Insulin) gabapentin 300 mg capsule 300 mg PO BID 30 days #60 caps 01/18/23 furosemide 20 mg tablet (Lasix) 20 mg PO DAILY 7 days #7 tabs 04/05/22 Allergies Allergy/AdvReac Type Severity Reaction Status Date / Time No Known Allergies Allergy Verified 04/05/22 10:35 [No Known Allergies*] Review of Systems Constitutional: Constitutional: Reports no additional constitutional complaints Respiratory: Respiratory: Reports as per HPI, Reports cough and Reports other (SOB) [facility] Past Medical History Medical History Abdominal pain Abnormal chest x-ray Acute respiratory failure Aspiration into airway Asthma-COPD overlap syndrome Chronic constipation Chronic respiratory failure Chronic respiratory failure Congestive heart failure COPD (chronic obstructive pulmonary disease) COPD exacerbation COPD mixed type Diabetes mellitus Essential hypertension Hyperlipidemia, unspecified Hypertensive cardiovascular disease Hypogammaglobulinemia Leukocytosis Limb swelling Morbid obesity Opioid dependence Poor dentition Pulmonary congestion Pulmonary nodule Rib fractures Status asthmaticus with COPD (chronic obstructive pulmonary disease) Tobacco abuse Type 2 diabetes mellitus Type 2 diabetes mellitus with unspecified complications Vomiting Surgical History H/O tubal ligation Family History Family History Father Diabetes Other Asthma Social History Social History Household Members: Children Household Members Other:: 3 Housing: Apartment Do you presently have visiting nurse or other home services: Yes (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, 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[employer]) Unable to assess alcohol history related to: Unknown Alcohol intake: former Patient Tobacco Use Status: Former Tobacco user Quit Date: last admission January 2022 Tobacco use type: Cigarette Cigarettes Per Day: 1 Years Smoked: 35 e-Cigarette/Vaping Use: Currently Using Second Hand Smoke Exposure: No Substance Use Type: Opiates Advance Directives: Yes Advance Directives on File: Yes Advance Directives Date on File: 06/12/21 service: No Current occupational status: disabled Physical Exam Vital Signs: Vital Signs: Last Vital Signs Temp 97.8 F 04/07/22 15:50 Pulse 75 04/07/22 15:50 Resp 15 04/07/22 15:50 BP 153/80 H 04/07/22 15:50 Pulse Ox 94 04/07/22 15:50 O2 Del Method 04/07/22 15:50 FiO2 25 04/07/22 15:50 BMI result Body Mass Index 38.0 Const: General: cooperative and alert Nutritional Appearance: well nourished Orientation/consciousness: patient oriented x3 HEENT: Head: Yes normal to inspection Face and sinus: Yes normal facial exam Mouth: Normal oral and palatal mucosa present Chest: Chest palpation & inspection: normal inspection of the chest Resp: Effort & Inspection: decreased respiratory effort and prolonged expiratory phase Auscultation: rhonchi and wheezes Cardio: Jugular venous distension: no JVD Rhythm: regular rhythm GI: Inspection: Yes normal to inspection Palpation (GI): Soft to palpation, not firm, nontender and no guarding Skin: General skin exam: no rashes or lesions noted Lesions: no lesions Rashes: no rashes Neuro: General: patient oriented x3 Extrem: General: Yes normal to inspection Course Reevaluation(s) Reevaluation #1: Improved Time: 15:29 Medications Administered Discontinued Medications Generic Name Dose Route Start Last Admin Trade Name Freq PRN Reason Stop Dose Admin Albuterol Sulfate 7.5 mg/ 10 mg 04/07/22 12:46 04/07/22 12:57 Albuterol Sulfate 2.5 mg INHALE 04/07/22 12:47 10 mg ONCE ONE Administration Methylprednisolone Sodium Succinate 125 mg 04/07/22 12:45 04/07/22 14:01 Methylprednisolone Sod Succ 125 Mg/2 Ml Vial IVPUSH 04/07/22 12:46 125 mg ONCE ONE Administration Medical Decision Making Medical Decision Making [facility] Narrative: presented with SOB/wheezing on bipapp will do CXR/VBG/albuterol/somumedrol and re assess Differential Diagnosis Differential Diagnoses: The differential diagnosis associated with the presentation includes pneumonia/PNX/COPD Ex Admission/Observation Consideration of admission/observation: Escalation of care including admission/observation considered Consult Healthcare Provider Management of the patient was discussed with: Hospitalist Lab Data [facility] Lab Attestation statement: I reviewed the patient's lab results. 04/07/22 12:59 04/07/22 12:59 Labs: Lab Results 04/07/22 04/07/22 04/07/22 Range/Units 12:59 12:59 12:59 WBC 13.7 H (4.8-10.8) X10*3/uL RBC 4.01 L (4.20-5.50) X10*6/uL Hgb 11.0 L (12.0-16.0) g/dl Hct 36.7 L (37.0-47.0) % MCV 91.5 (80.0-98.0) fL MCH 27.4 (27.0-33.0) pg MCHC 30.0 L (31.0-35.0) g/dl RDW 13.7 (11.0-16.0) % Plt Count 303 (160-400) X10*3/uL MPV 9.3 L (9.4-12.3) fL Immature Gran % (Auto) 0.6 H (0.0-0.4) % Neut % (Auto) 86.0 H (45-73) % Lymph % (Auto) 6.6 L (20-40) % [place] % (Auto) 5.5 (2-11) % Eos % (Auto) 1.1 (0-4) % Baso % (Auto) 0.2 (0-2) % Lymph # (Auto) 0.9 L (1.2-4.9) X10*3/uL [place] # (Auto) 0.8 (0.1-1.2) X10*3/uL Eos # (Auto) 0.2 (0.0-0.4) X10*3/uL Baso # (Auto) 0.0 (0.0-0.2) X10*3/uL Abs Immat Gran (auto) 0.08 H (0.00-0.03) X10*3/uL Absolute Neuts (auto) 11.8 H (2.0-8.3) x10*3/uL Absolute Nucleated RBC 0.000 (0.0-0.012) X10*3/uL Nucleated RBC % (auto) 0.0 (0.0-0.2) /100WBC PT 11.3 (10.0-13.1) SEC INR 1.0 (0.9-1.1) VBG pH (7.32-7.43) VBG pCO2 mmHg VBG pO2 mmHg VBG HCO3 (22-26) mmol/L VBG O2 Saturation % VBG Base Excess mmol/L Sodium 143 (135-145) mmol/L Potassium 4.4 D (3.3-5.1) mmol/L Chloride 98 (96-108) mmol/L Carbon Dioxide 35 H (22-29) mmol/L Anion Gap 14 (12-20) BUN 17 H (9-16) mg/dL Creatinine 0.65 (0.5-1.4) mg/dL Estim Creat Clear Calc 100.0 Estimated GFR > 60 Random Glucose 144 H (60-115) mg/dL Calcium 9.2 (8.4-10.2) mg/dL Total Bilirubin 0.2 (0.0-1.0) mg/dL AST 15 (5-31) U/L ALT 9 (0-31) U/L Alkaline Phosphatase 70 (39-117) U/L Troponin I High Sens (<3.5-17.0) ng/L B-Natriuretic Peptide (<100) pg/mL Total Protein 6.4 L (6.5-8.0) g/dL Albumin 3.8 (3.5-5.0) g/dL COVID-19 (PAPO) (Negative) COVID-19 Clin Com 04/07/22 04/07/22 04/07/22 Range/Units 12:59 12:59 13:04 WBC (4.8-10.8) X10*3/uL RBC (4.20-5.50) X10*6/uL Hgb (12.0-16.0) g/dl Hct (37.0-47.0) % MCV (80.0-98.0) fL MCH (27.0-33.0) pg MCHC (31.0-35.0) g/dl RDW (11.0-16.0) % Plt Count (160-400) X10*3/uL MPV (9.4-12.3) fL Immature Gran % (Auto) (0.0-0.4) % Neut % (Auto) (45-73) % Lymph % (Auto) (20-40) % [place] % (Auto) (2-11) % Eos % (Auto) (0-4) % Baso % (Auto) (0-2) % Lymph # (Auto) (1.2-4.9) X10*3/uL [place] # (Auto) (0.1-1.2) X10*3/uL Eos # (Auto) (0.0-0.4) X10*3/uL Baso # (Auto) (0.0-0.2) X10*3/uL Abs Immat Gran (auto) (0.00-0.03) X10*3/uL Absolute Neuts (auto) (2.0-8.3) x10*3/uL Absolute Nucleated RBC (0.0-0.012) X10*3/uL Nucleated RBC % (auto) (0.0-0.2) /100WBC PT (10.0-13.1) SEC INR (0.9-1.1) VBG pH 7.61 H* (7.32-7.43) VBG pCO2 31 mmHg VBG pO2 191 mmHg VBG HCO3 32 H (22-26) mmol/L VBG O2 Saturation 100.0 % VBG Base Excess 10.4 mmol/L Sodium (135-145) mmol/L Potassium (3.3-5.1) mmol/L Chloride (96-108) mmol/L Carbon Dioxide (22-29) mmol/L Anion Gap (12-20) BUN (9-16) mg/dL Creatinine (0.5-1.4) mg/dL Estim Creat Clear Calc Estimated GFR Random Glucose (60-115) mg/dL Calcium (8.4-10.2) mg/dL Total Bilirubin (0.0-1.0) mg/dL AST (5-31) U/L ALT (0-31) U/L Alkaline Phosphatase (39-117) U/L Troponin I High Sens 6.4 (<3.5-17.0) ng/L B-Natriuretic Peptide 20 (<100) pg/mL Total Protein (6.5-8.0) g/dL Albumin (3.5-5.0) g/dL COVID-19 (PAPO) (Negative) COVID-19 Clin Com 04/07/22 Range/Units 13:11 WBC (4.8-10.8) X10*3/uL RBC (4.20-5.50) X10*6/uL Hgb (12.0-16.0) g/dl Hct (37.0-47.0) % MCV (80.0-98.0) fL MCH (27.0-33.0) pg MCHC (31.0-35.0) g/dl RDW (11.0-16.0) % Plt Count (160-400) X10*3/uL MPV (9.4-12.3) fL Immature Gran % (Auto) (0.0-0.4) % Neut % (Auto) (45-73) % Lymph % (Auto) (20-40) % [place] % (Auto) (2-11) % Eos % (Auto) (0-4) % Baso % (Auto) (0-2) % Lymph # (Auto) (1.2-4.9) X10*3/uL [place] # (Auto) (0.1-1.2) X10*3/uL Eos # (Auto) (0.0-0.4) X10*3/uL Baso # (Auto) (0.0-0.2) X10*3/uL Abs Immat Gran (auto) (0.00-0.03) X10*3/uL Absolute Neuts (auto) (2.0-8.3) x10*3/uL Absolute Nucleated RBC (0.0-0.012) X10*3/uL Nucleated RBC % (auto) (0.0-0.2) /100WBC PT (10.0-13.1) SEC INR (0.9-1.1) VBG pH (7.32-7.43) VBG pCO2 mmHg VBG pO2 mmHg VBG HCO3 (22-26) mmol/L VBG O2 Saturation % VBG Base Excess mmol/L Sodium (135-145) mmol/L Potassium (3.3-5.1) mmol/L Chloride (96-108) mmol/L Carbon Dioxide (22-29) mmol/L Anion Gap (12-20) BUN (9-16) mg/dL Creatinine (0.5-1.4) mg/dL Estim Creat Clear Calc Estimated GFR Random Glucose (60-115) mg/dL Calcium (8.4-10.2) mg/dL Total Bilirubin (0.0-1.0) mg/dL AST (5-31) U/L ALT (0-31) U/L Alkaline Phosphatase (39-117) U/L Troponin I High Sens (<3.5-17.0) ng/L B-Natriuretic Peptide (<100) pg/mL Total Protein (6.5-8.0) g/dL Albumin (3.5-5.0) g/dL COVID-19 (PAPO) Negative (Negative) COVID-19 Clin Com See Note ABG Data Attestation ABG: I personally reviewed and interpreted this ABG as follows: Interpretation: hypoxia,alcalosis Independent Interpretation I performed an independent interpretation of an: EKG (NSR 98 RBBB no ischemia) and Plain X-Ray Independent Historian Clinical information obtained from an independent historian. History obtained from or confirmed by: EMS External Record Review External record reviewed: Inpatient record Chronic Conditions Patient?s care impacted by: Other (COPD ) Critical Care Time Critical Care Time Critical Care Time: Yes Total Critical Care Time: 60 Attestation: Bipap/speaking with EMS/Hospitalist/taking care of the pt Discharge Plan Discharge Clinical Impression: COPD exacerbation Patient Disposition: Admitted As Inpatient
[2022-04-07] MEDS: Albuterol Sulfate 7.5 MG, Albuterol Sulfate (0.083%) 2.5 MG 10 MG INHALE (12:57)
[2022-04-07 13:04] LABS: MANUAL DIFF FLAG NO
[2022-04-07 13:08] LABS: Basophils Percent Auto 0.2 % (0-2); Eosinophils Absolute Auto 0.2 X10*3/uL (0.0-0.4); Eosinophils Percent Auto 1.1 % (0-4); Hematocrit 36.7 % (37.0-47.0); Imm Gran Abs Auto 0.08 X10*3/uL (0.00-0.03); Imm Gran Pct Auto 0.6 % (0.0-0.4); Lymphocytes Absolute Auto 0.9 X10*3/uL (1.2-4.9); Lymphocytes Percent Auto 6.6 % (20-40); Mean Corpuscular Hemoglobin 27.4 pg (27.0-33.0); Mean Corpuscular Volume 91.5 fL (80.0-98.0); Mean Platelet Volume 9.3 fL (9.4-12.3); Monocytes Absolute Auto 0.8 X10*3/uL (0.1-1.2); Monocytes Percent Auto 5.5 % (2-11); Neutrophils Absolute Auto 11.8 x10*3/uL (2.0-8.3); Platelet Count 303 X10*3/uL (160-400); Red Blood Count 4.01 X10*6/uL (4.20-5.50); Red Cell Distribution Width 13.7 % (11.0-16.0); White Blood Count 13.7 X10*3/uL (4.8-10.8)
[2022-04-07 13:14] LABS: Prothrombin Time 11.3 SEC (10.0-13.1)
[2022-04-07 13:18] LABS: VBG Base Excess 10.4 mmol/L; VBG HCO3 32 mmol/L (22-26); VBG pCO2 31 mmHg; VBG pO2 191 mmHg
[2022-04-07 13:22] LABS: Venous Blood Gas Refer to POC result
[2022-04-07 13:22] LABS: VBG pH 7.61 (7.32-7.43)
[2022-04-07 13:28] LABS: Troponin-I High Sensitivity 6.4 ng/L (<3.5-17.0)
[2022-04-07 13:30] LABS: Alanine Aminotransferase 9 U/L (0-31); Albumin Level 3.8 g/dL (3.5-5.0); Alkaline Phosphatase 70 U/L (39-117); Anion Gap 14 (12-20); Aspartate Amino Transferase 15 U/L (5-31); Bilirubin Total 0.2 mg/dL (0.0-1.0); Blood Urea Nitrogen 17 mg/dL (9-16); Calcium 9.2 mg/dL (8.4-10.2); Carbon Dioxide 35 mmol/L (22-29); Chloride 98 mmol/L (96-108); Estimated Glomerular Filt Rate > 60; Glucose Random 144 mg/dL (60-115); Potassium 4.4 mmol/L (3.3-5.1); Sodium 143 mmol/L (135-145); Total Protein 6.4 g/dL (6.5-8.0)
[2022-04-07 13:33] LABS: COVID-19 Test Negative (Negative); IDNOW Serial# 16C4AD1C
[2022-04-07 13:40] LABS: B Type Natriuretic Peptide 20 pg/mL (<100)
[2022-04-07] MEDS: methylPREDNISolone Sod Succ 125 MG/2 ML VIAL IVPUSH (14:01)
--- NOTE | 2022-04-07 14:44 | P.HPHOSP_ITS ---
History of Present Illness Date of Service: 04/07/22 Chief Complaint: Shortness of breath 52-year-old female with a PMH of asthma-COPD overlap syndrome, chronic respiratory failure on 2.5L baseline oxygen, BiPAP dependent, insulin-dependent DM2, HTN, and HLD , frequent hospitalization . She called EMS for increase difficulty breathing feeling SOB,not getting relief with inhalers. She was found to be hypoxic by EMS and put on BiPAP prior to arriving to the ED. Her O2 sat has been pretty much within normal on BiPAP, she is talking in full sentences. She states that she has been compliant with meds and have not been smoking, at least since last hospitalization las month. Covid negative, CXR no acute fi nding. Overall is already feeling better. Review of Systems Review of Systems: Gen: no fever Resp: + sob, no cough CV: no chest, + ANAYA, no leg edema GI: No n/v, no abd pain Neuro: No confusion PMFSH Medical History Abdominal pain Abnormal chest x-ray Acute respiratory failure Aspiration into airway Asthma-COPD overlap syndrome Chronic constipation Chronic respiratory failure Chronic respiratory failure Congestive heart failure COPD (chronic obstructive pulmonary disease) COPD exacerbation COPD mixed type Diabetes mellitus Essential hypertension Hyperlipidemia, unspecified Hypertensive cardiovascular disease Hypogammaglobulinemia Leukocytosis Limb swelling Morbid obesity Opioid dependence Poor dentition Pulmonary congestion Pulmonary nodule Rib fractures Status asthmaticus with COPD (chronic obstructive pulmonary disease) Tobacco abuse Type 2 diabetes mellitus Type 2 diabetes mellitus with unspecified complications Vomiting Family History Father Diabetes Other Asthma Surgical History H/O tubal ligation Social History Household Members: Children Household Members Other:: 3 Housing: Apartment Do you presently have visiting nurse or other home services: Yes (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, 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[employer]) Unable to assess alcohol history related to: Unknown Alcohol intake: former Patient Tobacco Use Status: Former Tobacco user Quit Date: last admission January 2022 Tobacco use type: Cigarette Cigarettes Per Day: 1 Years Smoked: 35 e-Cigarette/Vaping Use: Currently Using Second Hand Smoke Exposure: No Substance Use Type: Opiates Advance Directives: Yes Advance Directives on File: Yes Advance Directives Date on File: 06/12/21 service: No Current occupational status: disabled Meds Allergies Allergy/AdvReac Type Severity Reaction Status Date / Time No Known Allergies Allergy Verified 04/05/22 10:35 [No Known Allergies*] Home Medications Medication Instructions Recorded Confirmed Last Taken Type albuterol sulfate 90 mcg/actuation 2 puff inhalation Q4H PRN 12/30/19 02/13/22 02/21/21 History aerosol inhaler (ProAir HFA) Shortness Of Breath Or Wheezing loratadine 10 mg tablet (Claritin) 10 mg PO DAILY 12/30/19 02/13/22 02/21/21 History montelukast 10 mg tablet 10 mg PO BEDTIME 12/30/19 02/13/22 02/20/21 History diltiazem HCl 360 mg capsule,24 1 cap PO DAILY 11/16/20 02/13/22 02/21/21 History hr,extended release (Tiadylt ER) roflumilast 500 mcg tablet 1 tab PO DAILY 11/16/20 02/13/22 02/21/21 History (Daliresp) rosuvastatin 5 mg tablet 1 tab PO BEDTIME 11/16/20 02/13/22 02/20/21 History insulin lispro 100 unit/mL See Protocol subcut TIDAC 12/14/20 02/13/22 02/21/21 History subcutaneous solution (Humalog U-100 Insulin) metformin 500 mg tablet,extended 2 tab PO BID 05/18/21 02/13/22 Unknown History release 24 hr ergocalciferol (vitamin D2) 1,250 1,250 mcg PO QWEEK 06/06/21 02/13/22 Unknown History mcg (50,000 unit) capsule methadone 10 mg/mL oral concentrate 49 mg PO DAILY 06/06/21 02/13/22 07/30/21 History lisinopril 40 mg tablet 1 tab PO DAILY 07/30/21 02/13/22 Unknown History glecaprevir 100 mg-pibrentasvir 40 3 tab PO DAILY 11/02/21 02/13/22 Unknown History mg tablet (Mavyret) hydralazine 25 mg tablet 1 tab PO TID 11/02/21 02/13/22 Unknown History insulin lispro 100 unit/mL 4 unit subcut TIDAC 11/02/21 02/13/22 Unknown History subcutaneous solution omeprazole 40 mg capsule,delayed 40 mg PO DAILY@0630 11/02/21 02/13/22 Unknown History release lidocaine 5 % topical patch 1 patch topical DAILY 12/08/21 02/13/22 Unknown History (Lidoderm) Physical Exam Vital Signs and Narrative: Vital Signs: Last Vital Signs Temp 97.7 F 04/07/22 12:43 Pulse 88 04/07/22 14:20 Resp 18 04/07/22 14:20 BP 121/58 L 04/07/22 14:20 Pulse Ox 98 04/07/22 14:20 O2 Del Method 04/07/22 14:20 FiO2 25 04/07/22 14:20 BMI result Body Mass Index 38.0 Const: Other: Constitutional: Alert, in no distress, overweight. Mental Status: Oriented to person, place and time. Eyes: Pupils are equal, round and reactive to light. Ear, Nose and Throat: Oropharynx clear, mucous membranes moist. Ears and nose without eformities. Respiratory: Clear to auscultation. No wheezing, rales or rhonchi. Tight air movement, no accessory muscle use Cardiovascular: S1 S2 regular. No murmurs, rubs or gallops. Gastrointestinal: Abdomen soft, non-tender, non-distended. Normal bowel sounds.? Neurologic: Cranial nerves II-XII grossly intact. No focal neurological defi cits. Moves all extremities spontaneously.? Skin: No rashes or lesions.? Musculoskeletal: No cyanosis or clubbing. Psychiatric: Normal mood and affect? Results Labs 04/07/22 12:59 04/07/22 12:59 Labs: Laboratory Results - last 24 hr 04/07/22 04/07/22 04/07/22 12:59 12:59 12:59 MCV 91.5 MCH 27.4 MCHC 30.0 L RDW 13.7 Plt Count 303 MPV 9.3 L Immature Gran % (Auto) 0.6 H Neut % (Auto) 86.0 H Lymph % (Auto) 6.6 L [place] % (Auto) 5.5 Eos % (Auto) 1.1 Baso % (Auto) 0.2 Lymph # (Auto) 0.9 L [place] # (Auto) 0.8 Eos # (Auto) 0.2 Baso # (Auto) 0.0 Abs Immat Gran (auto) 0.08 H Absolute Neuts (auto) 11.8 H Absolute Nucleated RBC 0.000 Nucleated RBC % (auto) 0.0 PT 11.3 INR 1.0 VBG pH VBG pCO2 VBG pO2 VBG HCO3 VBG O2 Saturation VBG Base Excess Anion Gap 14 Estim Creat Clear Calc 100.0 Estimated GFR > 60 Random Glucose 144 H Calcium 9.2 Total Bilirubin 0.2 AST 15 ALT 9 Alkaline Phosphatase 70 Troponin I High Sens B-Natriuretic Peptide Total Protein 6.4 L Albumin 3.8 COVID-19 (PAPO) COVID-19 [employer] Com 04/07/22 04/07/22 04/07/22 12:59 12:59 13:04 MCV MCH MCHC RDW Plt Count MPV Immature Gran % (Auto) Neut % (Auto) Lymph % (Auto) [place] % (Auto) Eos % (Auto) Baso % (Auto) Lymph # (Auto) [place] # (Auto) Eos # (Auto) Baso # (Auto) Abs Immat Gran (auto) Absolute Neuts (auto) Absolute Nucleated RBC Nucleated RBC % (auto) PT INR VBG pH 7.61 H* VBG pCO2 31 VBG pO2 191 VBG HCO3 32 H VBG O2 Saturation 100.0 VBG Base Excess 10.4 Anion Gap Estim Creat Clear Calc Estimated GFR Random Glucose Calcium Total Bilirubin AST ALT Alkaline Phosphatase Troponin I High Sens 6.4 B-Natriuretic Peptide 20 Total Protein Albumin COVID-19 (PAPO) COVID-19 [employer] Com 04/07/22 13:11 MCV MCH MCHC RDW Plt Count MPV Immature Gran % (Auto) Neut % (Auto) Lymph % (Auto) [place] % (Auto) Eos % (Auto) Baso % (Auto) Lymph # (Auto) [place] # (Auto) Eos # (Auto) Baso # (Auto) Abs Immat Gran (auto) Absolute Neuts (auto) Absolute Nucleated RBC Nucleated RBC % (auto) PT INR VBG pH VBG pCO2 VBG pO2 VBG HCO3 VBG O2 Saturation VBG Base Excess Anion Gap Estim Creat Clear Calc Estimated GFR Random Glucose Calcium Total Bilirubin AST ALT Alkaline Phosphatase Troponin I High Sens B-Natriuretic Peptide Total Protein Albumin COVID-19 (PAPO) Negative COVID-19 Clin Com See Note Imaging Radiologist's Impressions: Impressions Chest X-Ray 04/07/22 13:38 IMPRESSION: No acute disease. Assessment and Plan (1) COPD exacerbation: Status: Acute Plan 52-year-old female with a PMH of asthma-COPD overlap syndrome on BiPAP at home, chronic respiratory failure on 2.5L baseline oxygen, insulin-dependent DM2, HTN, and HLD brought to the ED with increasing SOB and found to have acute on chronic hypoxic respiratory failure related to COPD exacerbation. . #Acute on chronic hypoxic respiratory failure d/t copd exacerbation -Use BiPAP PRN during the day and scheduled at bedtime -Bronchodilators by Neb -IV steroid -ongoing smoking cessation reinforced # leukocytosis - chronically elevated,likely secondary to steroid use # diabetes blood sugars? blood sugars on lower side? continue insulin sliding scale, schedule pre meal insulin and metformin,? and Lantus 35 units # hypertension - stable blood pressure, continue home meds # Mental health - continue home meds # Diabetic neuropathy, unspecified - continue gabapentin # History of substance abuse - continue methadone DVT prophylaxis with Lovenox Full code Admission to span at least 2 midnights for acute on chronic respiratory failure and requiring rescue BiPAP that needs close monitoring Full code Time Spent With Patient Time: Total time managing care of this patient today ____ minutes. Quality Stroke Does the patient have a stroke diagnosis?: No VTE Prior VTE?: No VTE Risk Level:: Medical - moderate - high VTE Device Contraindication: Treatment Not Indicated VTE Drug Contraindication: N/A - Med Ordered
--- NOTE | 2022-04-07 15:51 | MHC.EDTECH ---
this pct assumed care of patient at 1500 ,1600 vitals sign taken ,patient is sleeping at this time ,call lu within reach .
--- NOTE | 2022-04-07 16:40 | MHC.EDTECH ---
PATIENT RANG GUTIERREZ ASK TO USE COMMODE ,PATIENT VOID LARGE AMOUNT OF URINE ,PATIENT ASKED FOR ICE CHIPS ,RN JERZY SAID IT WAS OK ,PATIENT OFF BIPAP AND WAS PUT ON 2 L OXYGEN ,CALL GUTIERREZ WITHIN REACH .
[2022-04-07] MEDS: Enoxaparin Sodium 40 MG/0.4 ML SYRINGE SUBCUT (16:47)
--- NOTE | 2022-04-07 18:03 | PHA.MEDREC ---
Pharmacy Consult ? Medication Reconciliation Pharmacy has completed the medication reconciliation. Patient is poor historian and knows none of her medications. Claims that her medications are exactly the same as the last time she was here so I used the discharge summary from her visit on 02/18/22 to complete med rec.
[2022-04-07 18:25] LABS: Glucose, Whole Blood 226 mg/dL (60-115)
[2022-04-07] MEDS: methylPREDNISolone Sod Succ 40 MG/ML VIAL IVPUSH (20:10)
[2022-04-07] MEDS: Montelukast Sodium 10 MG TABLET PO (20:11)
[2022-04-07] MEDS: Atorvastatin Calcium 20 MG TABLET PO (20:11)
[2022-04-07] MEDS: Gabapentin 300 MG CAPSULE PO (20:11)
[2022-04-07] MEDS: Diclofenac Sodium Delayed Rel 50 MG TABLET.DR PO (20:11)
[2022-04-07] MEDS: hydrALAZINE HCl 25 MG TABLET PO (20:12)
[2022-04-07] MEDS: 0.9 % Sodium Chloride Flush 3 ML SYRINGE IVFLUSH (20:13)
[2022-04-07] MEDS: Insulin Glargine,Hum.rec.anlog 100 UNIT/ML 10 ML VIAL 35 UNIT SUBCUT (20:20)
[2022-04-07 20:30] LABS: Glucose, Whole Blood 297 mg/dL (60-115)
[2022-04-07] MEDS: Ergocalciferol (Vitamin D2) 1,250 MCG CAPSULE 1250 MCG PO (21:04)
[2022-04-07] MEDS: buPROPion HCL 75 MG TABLET 150 MG PO (21:22)
[2022-04-07] MEDS: Salmeterol Xinafoate 50 MCG BLST.W.DEV 1 PUFF INHALE (21:22)
[2022-04-07] MEDS: Budesonide 180 MCG AER.POW.BA 1 PUFF INHALE (21:22)
[2022-04-08] VITALS (10 sets, daily range): BP systolic 148–178; BP diastolic 62–95; PULSE 76–109; RESP 17–20; TEMP 36.2–37.1; O2SAT 94–97
[2022-04-08] MEDS: methylPREDNISolone Sod Succ 40 MG/ML VIAL IVPUSH ×4 (00:32→18:25)
[2022-04-08] MEDS: Omeprazole 40 MG CAPSULE.DR PO (05:45)
[2022-04-08] MEDS: Albuterol Sulfate (0.083%) 2.5 MG/3 ML VIAL.NEB INHALE (05:57)
[2022-04-08 07:33] LABS: Glucose, Whole Blood 213 mg/dL (60-115)
--- NOTE | 2022-04-08 07:56 | P.PNIM_ITS ---
Subjective Subjective Date of Service: 04/08/22 Interval History: Seen in f/u for acute on chronic hypoxic respiratory failurel, copd interval history: fleels better, less hypoxic, used bipap overnight Review of Systems +Stovall no fever Physical Exam Vital Signs: Vital Signs: Last Vital Signs Temp 97.5 F 04/08/22 04:04 Pulse 102 H 04/08/22 05:57 Resp 17 04/08/22 05:57 BP 148/82 H 04/08/22 04:04 Pulse Ox 95 04/08/22 04:04 O2 Del Method 04/08/22 04:04 O2 Flow Rate 2.5 04/07/22 16:00 FiO2 25 04/07/22 15:50 BMI result Body Mass Index 38.0 Const: Other: General: AO X 3, no acute distress Resp: Diminish breath sound masoud CVS: S1,S2,RRR GI: +BS, NT, no distention Skin: No rash Neuro: motor grossly intact Psych: appropriate affect Objective Data Active Medications Acetaminophen (Acetaminophen 325 Mg Tablet) 650 mg PO Q6H PRN PRN Reason: Pain, Mild (Pain Scale 1-3) Albuterol Sulfate (Albuterol Sulfate 90 Mcg 8 Gm Inhaler) 2 puff INHALE Q4H PRN PRN Reason: Shortness Of Breath Or Wheezing Albuterol Sulfate (Albuterol Sulfate (0.083%) 2.5 Mg/3 Ml Vial.Neb) 2.5 mg INHALE Q2H PRN PRN Reason: Shortness of Breath/Wheezing Last Admin: 04/08/22 05:57 Dose: 2.5 mg Documented By: BETH Albuterol/Ipratropium (Albuterol/Iprat 2.5/0.5mg 3 Ml Ampul.Neb) 3 ml INHALE Q4H PRN PRN Reason: for wheezing Atorvastatin Calcium (Atorvastatin Calcium 20 Mg Tablet) 20 mg PO BEDTIME [facility] Last Admin: 04/07/22 20:11 Dose: 20 mg Documented By: MARICARMEN Budesonide (Budesonide 180 Mcg Aer.Pow.Ba) 1 puff INHALE RBID [facility] Last Admin: 04/07/22 21:22 Dose: 1 puff Documented By: MARICARMEN Bupropion HCl (Bupropion Hcl 75 Mg Tablet) 150 mg PO BID [facility] Last Admin: 04/07/22 21:22 Dose: 150 mg Documented By: MARICARMEN Albuterol Sulfate 2.5 mg/ (Ipratropium Oxford 0.5 mg) 0 mg INHALE RQ4H WHILE AWAKE [facility] Last Admin: 04/07/22 19:41 Dose: 1 each Documented By: MAIDA Diclofenac Sodium (Diclofenac Sodium Delayed Rel 50 Mg Tablet.) 50 mg PO BID [facility] Last Admin: 04/07/22 20:11 Dose: 50 mg Documented By: MARICARMEN Diltiazem HCl (Diltiazem Hcl Cd 180 Mg Cap.Er.24h) 360 mg PO DAILY [facility]; Protocol Enoxaparin Sodium (Enoxaparin Sodium 40 Mg/0.4 Ml Syringe) 40 mg SUBCUT Q24H [facility] Last Admin: 04/07/22 16:47 Dose: 40 mg Documented By: BEAR Ergocalciferol (Ergocalciferol (Vitamin D2) 1,250 Mcg Capsule) 1,250 mcg PO Q7D [facility] Last Admin: 04/07/22 21:04 Dose: 1,250 mcg Documented By: MARICARMEN Gabapentin (Gabapentin 300 Mg Capsule) 300 mg PO BID [facility] Last Admin: 04/07/22 20:11 Dose: 300 mg Documented By: MARICARMEN Hydralazine HCl (Hydralazine Hcl 25 Mg Tablet) 25 mg PO TID [facility]; Protocol Last Admin: 04/07/22 20:12 Dose: 25 mg Documented By: MARICARMEN Insulin Glargine (Insulin Glargine,Hum.Rec.Anlog 100 Unit/Ml 10 Ml Vial) 35 unit SUBCUT BEDTIME [facility] Last Admin: 04/07/22 20:20 Dose: 35 unit Documented By: MARICARMEN Insulin Human Lispro (Insulin Lispro 100 Unit/Ml 3 Ml Vial) 1 unit SUBCUT TIDAC [facility]; Protocol Insulin Human Lispro (Insulin Lispro 100 Unit/Ml 3 Ml Vial) 4 unit SUBCUT TIDAC [facility] Lisinopril (Lisinopril 40 Mg Tablet) 40 mg PO DAILY [facility]; Protocol Loratadine (Loratadine 10 Mg Tablet) 10 mg PO DAILY [facility] Metformin HCl (Metformin Hcl Er 500 Mg Tab.Er.24h) 1,000 mg PO BID [facility] Last Admin: 04/07/22 21:28 Dose: Not Given Documented By: MARICARMEN Non-Admin Reason: Patient Refused Methylprednisolone Sodium Succinate (Methylprednisolone Sod Succ 40 Mg/Ml Vial) 40 mg IVPUSH Q6H [facility] Last Admin: 04/08/22 06:02 Dose: 40 mg Documented By: MARICARMEN Montelukast Sodium (Montelukast Sodium 10 Mg Tablet) 10 mg PO BEDTIME [facility] Last Admin: 04/07/22 20:11 Dose: 10 mg Documented By: MARICARMEN Non-Formulary Medication (Arformoterol [Brovana]) 2 ml INHALE Q12H [facility] Non-Formulary Medication (Roflumilast [Daliresp]) 500 mcg PO DAILY [facility] Non-Formulary Medication (Theophylline) 450 mg PO Q12H [facility] Omeprazole (Omeprazole 40 Mg Capsule.Dr) 40 mg PO DAILY@0630 [facility] Last Admin: 04/08/22 05:45 Dose: 40 mg Documented By: MARICARMEN Pharmacy Consult (Consult Rx Perform Med Rec) 1 each MISCELLANE ONCE PRN PRN Reason: Consult order Salmeterol Xinafoate (Salmeterol Xinafoate 50 Mcg Blst.W.Dev) 1 puff INHALE RBID [facility] Last Admin: 04/07/22 21:22 Dose: 1 puff Documented By: MARICARMEN Simethicone (Simethicone 80 Mg Tab.Chew) 80 mg PO QIDWMHS PRN PRN Reason: Abdominal Distention Sodium Chloride (0.9 % Sodium Chloride Flush 3 Ml Syringe) 3 ml IVFLUSH QSHIFT [facility] Last Admin: 04/07/22 20:13 Dose: 3 ml Documented By: MARICARMEN Tiotropium Oxford (Tiotropium Oxford 18 Mcg Cap.W.Dev) 1 puff INHALE DAILY [facility] Labs 04/07/22 12:59 04/07/22 12:59 Labs: Laboratory Results - last 24 hr 04/07/22 04/07/22 04/07/22 12:59 12:59 12:59 MCV 91.5 MCH 27.4 MCHC 30.0 L RDW 13.7 Plt Count 303 MPV 9.3 L Immature Gran % (Auto) 0.6 H Neut % (Auto) 86.0 H Lymph % (Auto) 6.6 L [place] % (Auto) 5.5 Eos % (Auto) 1.1 Baso % (Auto) 0.2 Lymph # (Auto) 0.9 L [place] # (Auto) 0.8 Eos # (Auto) 0.2 Baso # (Auto) 0.0 Abs Immat Gran (auto) 0.08 H Absolute Neuts (auto) 11.8 H Absolute Nucleated RBC 0.000 Nucleated RBC % (auto) 0.0 PT 11.3 INR 1.0 VBG pH VBG pCO2 VBG pO2 VBG HCO3 VBG O2 Saturation VBG Base Excess Anion Gap 14 Estim Creat Clear Calc 100.0 Estimated GFR > 60 POC Glucose Random Glucose 144 H Calcium 9.2 Total Bilirubin 0.2 AST 15 ALT 9 Alkaline Phosphatase 70 Troponin I High Sens B-Natriuretic Peptide Total Protein 6.4 L Albumin 3.8 COVID-19 (PAPO) [id number] 04/07/22 04/07/22 04/07/22 12:59 12:59 13:04 MCV MCH MCHC RDW Plt Count MPV Immature Gran % (Auto) Neut % (Auto) Lymph % (Auto) [place] % (Auto) Eos % (Auto) Baso % (Auto) Lymph # (Auto) [place] # (Auto) Eos # (Auto) Baso # (Auto) Abs Immat Gran (auto) Absolute Neuts (auto) Absolute Nucleated RBC Nucleated RBC % (auto) PT INR VBG pH 7.61 H* VBG pCO2 31 VBG pO2 191 VBG HCO3 32 H VBG O2 Saturation 100.0 VBG Base Excess 10.4 Anion Gap Estim Creat Clear Calc Estimated GFR POC Glucose Random Glucose Calcium Total Bilirubin AST ALT Alkaline Phosphatase Troponin I High Sens 6.4 B-Natriuretic Peptide 20 Total Protein Albumin COVID-19 (PAPO) [id number] 04/07/22 04/07/22 04/07/22 13:11 18:21 20:19 MCV MCH MCHC RDW Plt Count MPV Immature Gran % (Auto) Neut % (Auto) Lymph % (Auto) [place] % (Auto) Eos % (Auto) Baso % (Auto) Lymph # (Auto) [place] # (Auto) Eos # (Auto) Baso # (Auto) Abs Immat Gran (auto) Absolute Neuts (auto) Absolute Nucleated RBC Nucleated RBC % (auto) PT INR VBG pH VBG pCO2 VBG pO2 VBG HCO3 VBG O2 Saturation VBG Base Excess Anion Gap Estim Creat Clear Calc Estimated GFR POC Glucose 226 H 297 H Random Glucose Calcium Total Bilirubin AST ALT Alkaline Phosphatase Troponin I High Sens B-Natriuretic Peptide Total Protein Albumin COVID-19 (PAPO) Negative COVID-19 Clin Com See Note 04/08/22 07:21 MCV MCH MCHC RDW Plt Count MPV Immature Gran % (Auto) Neut % (Auto) Lymph % (Auto) [place] % (Auto) Eos % (Auto) Baso % (Auto) Lymph # (Auto) [place] # (Auto) Eos # (Auto) Baso # (Auto) Abs Immat Gran (auto) Absolute Neuts (auto) Absolute Nucleated RBC Nucleated RBC % (auto) PT INR VBG pH VBG pCO2 VBG pO2 VBG HCO3 VBG O2 Saturation VBG Base Excess Anion Gap Estim Creat Clear Calc Estimated GFR POC Glucose 213 H Random Glucose Calcium Total Bilirubin AST ALT Alkaline Phosphatase Troponin I High Sens B-Natriuretic Peptide Total Protein Albumin COVID-19 (PAPO) COVID-19 Clin Com Assessment and Plan (1) Acute respiratory failure: Status: Acute (2) COPD exacerbation: Status: Acute Plan 52-year-old female with a PMH of asthma-COPD overlap syndrome on BiPAP at home, chronic respiratory failure on 2.5L baseline oxygen, insulin-dependent DM2, HTN, and HLD brought to the ED with increasing SOB and found to have acute on chronic hypoxic respiratory failure related to COPD exacerbation. . #Acute on chronic hypoxic respiratory failure d/t copd exacerbation -Use BiPAP PRN during the day and scheduled at bedtime -Bronchodilators by Neb -IV steroid to PO prednisone -ongoing smoking cessation reinforced # leukocytosis - chronically elevated,likely secondary to steroid use # diabetes blood sugars? blood sugars on lower side? continue insulin sliding scale, schedule pre meal insulin and metformin,? and Lantus 35 units # hypertension - stable blood pressure, continue home meds # Mental health - continue home meds # Diabetic neuropathy, unspecified ?- continue gabapentin # History of substance abuse ?- continue methadone DVT prophylaxis with Lovenox Full code Need for inpatient: management of acute on chronic respiratory failure and requiring rescue BiPAP that needs close monitoring of respiratory status Time Spent With Patient Time: Total time managing care of this patient today ____ minutes. Quality Stroke Does the patient have a stroke diagnosis?: No VTE Prior VTE?: No VTE Risk Level:: Medical - moderate - high VTE Device Contraindication: Treatment Not Indicated VTE Drug Contraindication: N/A - Med Ordered
[2022-04-08] MEDS: Salmeterol Xinafoate 50 MCG BLST.W.DEV 1 PUFF INHALE (07:58)
[2022-04-08] MEDS: Budesonide 180 MCG AER.POW.BA 1 PUFF INHALE ×2 (07:58→20:16)
[2022-04-08] MEDS: Gabapentin 300 MG CAPSULE PO ×2 (08:36→22:44)
[2022-04-08] MEDS: dilTIAZem HCL CD 180 MG CAP.ER.24H 360 MG PO (08:36)
[2022-04-08] MEDS: hydrALAZINE HCl 25 MG TABLET PO ×3 (08:36→22:56)
[2022-04-08] MEDS: metFORMIN HCl ER 500 MG TAB.ER.24H 1000 MG PO ×2 (08:36→22:43)
[2022-04-08] MEDS: buPROPion HCL 75 MG TABLET 150 MG PO ×2 (08:36→22:44)
[2022-04-08] MEDS: Diclofenac Sodium Delayed Rel 50 MG TABLET.DR PO ×2 (08:36→22:45)
[2022-04-08] MEDS: Loratadine 10 MG TABLET PO (08:36)
[2022-04-08] MEDS: lisinopriL 40 MG TABLET PO (08:37)
[2022-04-08] MEDS: Insulin Lispro 100 UNIT/ML 3 ML VIAL SUBCUT ×6 (08:40→17:02)
[2022-04-08] MEDS: 0.9 % Sodium Chloride Flush 3 ML SYRINGE IVFLUSH ×3 (08:42→19:50)
--- NOTE | 2022-04-08 11:28 | HE.PHANOTE ---
RE: methadone received verification from nursing, 50mg last dose on 04/07/22 @9am
[2022-04-08 11:41] LABS: Glucose, Whole Blood 234 mg/dL (60-115)
[2022-04-08] MEDS: Theophylline Anhydrous ER 300 MG TAB.ER.12H 450 MG PO ×2 (11:47→22:40)
[2022-04-08] MEDS: methADONE HCl 20 MG/2 ML ORAL.CONC 50 MG PO (11:48)
[2022-04-08] MEDS: Enoxaparin Sodium 40 MG/0.4 ML SYRINGE SUBCUT (15:58)
[2022-04-08 16:53] LABS: Glucose, Whole Blood 222 mg/dL (60-115)
[2022-04-08] MEDS: Montelukast Sodium 10 MG TABLET PO (22:44)
[2022-04-08] MEDS: Atorvastatin Calcium 20 MG TABLET PO (22:44)
[2022-04-08] MEDS: Insulin Glargine,Hum.rec.anlog 100 UNIT/ML 10 ML VIAL 35 UNIT SUBCUT (22:45)
[2022-04-09] VITALS (8 sets, daily range): BP systolic 138–160; BP diastolic 68–86; PULSE 100–116; RESP 18–22; TEMP 36.1–37.1; O2SAT 94–98
[2022-04-09] MEDS: methylPREDNISolone Sod Succ 40 MG/ML VIAL IVPUSH ×3 (00:47→12:26)
[2022-04-09 03:00] LABS: Glucose, Whole Blood 245 mg/dL (60-115)
[2022-04-09] MEDS: Omeprazole 40 MG CAPSULE.DR PO (05:51)
[2022-04-09 07:31] LABS: Glucose, Whole Blood 251 mg/dL (60-115)
[2022-04-09] MEDS: Loratadine 10 MG TABLET PO (08:03)
[2022-04-09] MEDS: Diclofenac Sodium Delayed Rel 50 MG TABLET.DR PO ×2 (08:03→20:27)
[2022-04-09] MEDS: buPROPion HCL 75 MG TABLET 150 MG PO ×2 (08:06→20:26)
[2022-04-09] MEDS: Gabapentin 300 MG CAPSULE PO ×2 (08:06→20:27)
[2022-04-09] MEDS: metFORMIN HCl ER 500 MG TAB.ER.24H 1000 MG PO (08:06)
[2022-04-09] MEDS: 0.9 % Sodium Chloride Flush 3 ML SYRINGE IVFLUSH ×3 (08:07→20:27)
[2022-04-09] MEDS: lisinopriL 40 MG TABLET PO (08:07)
[2022-04-09] MEDS: methADONE HCl 20 MG/2 ML ORAL.CONC 50 MG PO (08:07)
[2022-04-09] MEDS: Insulin Lispro 100 UNIT/ML 3 ML VIAL SUBCUT ×6 (08:08→16:34)
[2022-04-09] MEDS: dilTIAZem HCL CD 180 MG CAP.ER.24H 360 MG PO (08:10)
[2022-04-09] MEDS: Simethicone 80 MG TAB.CHEW PO (09:16)
[2022-04-09] MEDS: Theophylline Anhydrous ER 300 MG TAB.ER.12H 450 MG PO ×2 (09:17→20:26)
[2022-04-09] MEDS: hydrALAZINE HCl 25 MG TABLET PO ×3 (09:18→20:26)
[2022-04-09 11:01] LABS: Venous Blood Gas Refer to POC result
[2022-04-09 11:02] LABS: VBG Base Excess 8.3 mmol/L; VBG HCO3 34 mmol/L (22-26); VBG pCO2 51 mmHg; VBG pH 7.42 (7.32-7.43); VBG pO2 136 mmHg
[2022-04-09 11:29] LABS: Glucose, Whole Blood 205 mg/dL (60-115)
[2022-04-09] MEDS: LORazepam 0.5 MG TABLET PO (12:28)
--- NOTE | 2022-04-09 14:14 | MHC.CM.PN ---
PATIENT LIVES WITH HER ADULT DAUGHTER PATIENT HAS PARTY HOST AND VNA SERVICES QD SHE IS UNABLE TO RECALL THE NAME OF HER AGENCY. HCP IS IN FILE AND VERIFIED. BIPAP, O2, AND INHALER DEPENDENT. METHADONE CLINIC IS IN [place]. PATIENT FEELS SHE MAY NEED AN AMBULANCE TRANSPORT HOME, LYFT RIDES HAVE PROVEN TO BE UNSAFE FOR HER RESPIRATORY NEEDS. CM FOLLOWING FOR DC
[2022-04-09 16:27] LABS: Glucose, Whole Blood 274 mg/dL (60-115)
[2022-04-09] MEDS: Enoxaparin Sodium 40 MG/0.4 ML SYRINGE SUBCUT (16:33)
[2022-04-09] MEDS: Budesonide 180 MCG AER.POW.BA 1 PUFF INHALE (19:12)
[2022-04-09] MEDS: Salmeterol Xinafoate 50 MCG BLST.W.DEV 1 PUFF INHALE (19:12)
[2022-04-09] MEDS: Montelukast Sodium 10 MG TABLET PO (20:26)
[2022-04-09] MEDS: Atorvastatin Calcium 20 MG TABLET PO (20:26)
[2022-04-09 20:41] LABS: Glucose, Whole Blood 274 mg/dL (60-115)
[2022-04-09] MEDS: Insulin Glargine,Hum.rec.anlog 100 UNIT/ML 10 ML VIAL 35 UNIT SUBCUT (21:27)
[2022-04-10] VITALS (10 sets, daily range): BP systolic 139–158; BP diastolic 73–86; PULSE 91–116; RESP 18–22; TEMP 35.8–37.1; O2SAT 94–100
[2022-04-10] MEDS: methylPREDNISolone Sod Succ 40 MG/ML VIAL IVPUSH ×4 (00:06→17:25)
[2022-04-10] MEDS: Omeprazole 40 MG CAPSULE.DR PO (05:55)
--- NOTE | 2022-04-10 07:00 | CA_ITS ---
Transthoracic Echocardiogram Patient (Last, First, Middle): Anju Tanner I Gender: Female Date of : 1970 Age: 52 Procedure Date: 04/10/2022 Procedure Type: Transthoracic Echocardiogram Location: S3W Height: 152.4 cm Weight: 88. kg BSA: 1.84 m2 Heart Rate: 115 bpm BP: 158 / 86 mmHg Professor Of Economics: SB Referring MD: Allan Brito MD Symptoms: cor pulmonale Study Quality: Fair w contrast ECG Rhythm: Sinus tachycardia Conclusions: - The left ventricular systolic function is normal. The visually estimated ejection fraction is between 60-65%. - Mild pulmonary hypertension is present. - Valves poorly visualized. Findings Procedure Information Contrast agent, definity, is being given per protocol without apparent complications. The quality of the study was technically difficult. The study quality is limited by patients body habitus and lung artifact. Left Ventricle Normal left ventricular cavity size. There is mildly increased left ventricular wall thickness. The left ventricular systolic function is normal. The visually estimated ejection fraction is between 60-65%. There is no evidence of regional wall motion abnormalities. Diastolic function is indeterminate on the basis of available data. Right Ventricle The right ventricle was not well visualized. Mildly increased right ventricular cavity size. Atria Both atria are normal in size. Aortic Valve The aortic valve was not well visualized. There is no aortic valve stenosis. There is no aortic valve regurgitation. Mitral Valve The mitral valve was not well visualized. Pulmonic Valve The pulmonic valve was not well visualized. Tricuspid Valve There is trace tricuspid valve regurgitation. Mild pulmonary hypertension is present. Great Vessels The asc aorta is normal in size. Venous The inferior vena cava is normal in size and collapses less than 50% with inspiration. Pericardium/Pleural There is no evidence of pericardial effusion. Prior Study Comparison No significant change compared to prior study dated: 05/21/2021. Measurements 2D Linear Measurements IVSd: 1.12 0.6-0.9/0.6-1.0 cm LA Diam: 3.00 2.7-3.8/3.0-4.0 cm LAIDs Index: 1.63 1.5-2.3 cm/m2 LVOT Diam: 2.00 3.0+(-)1.3 cm 2D Systolic Function EF 4C: 65.70 >55% EF 2C: 68.70 >55% EF BiP: 67.70 >55% Mitral Valve MV Pk E: 0.75 MV PK A: 1.21 E/A: 0.60 Aortic Valve AoV Pk Andrea: 1.86 AoV Pk Grad: 14.00 TASNEEM: 2.58 LVOT LVOT Pk Andrea: 1.53 LVOT Mn Andrea: 0.97 LVOT VTI: 0.21 LVOT Pk Grad: 9.00 LVOT Mn Grad: 5.00 LVOT Diam: 2.00 LVOT Area: 3.14 Diastolic Function MV Pk E: 0.75 MV Pk A: 1.21 E/A: 0.60 Tricuspid Valve TR Pk Andrea: 3.04 TR Pk Grad: 37.00 RA Press: 8.00 RVSP: 45.00 Great Vessels Aorta Sinus of Valsalva: 2.70 2.0-3.5 cm Ao Asc: 3.00 2.1-3.4 cm Pulmonary Valve PV Pk Andrea: 1.99 PV Min Andrea: 1.37 Peak PV Grad: 16.00 PV Mn Grad: 9.00 Updated in Other Vendor System with Status of Final Royce Molina MD electronically signed on 04/10/2022 4:04:16 PM with status of Final
[2022-04-10] MEDS: Salmeterol Xinafoate 50 MCG BLST.W.DEV 1 PUFF INHALE ×2 (07:26→19:06)
[2022-04-10] MEDS: Albuterol/Iprat 2.5/0.5MG 3 ML AMPUL.NEB INHALE (07:26)
[2022-04-10] MEDS: Budesonide 180 MCG AER.POW.BA 1 PUFF INHALE ×2 (07:28→19:06)
[2022-04-10] MEDS: Theophylline Anhydrous ER 300 MG TAB.ER.12H 450 MG PO ×2 (07:32→20:43)
[2022-04-10] MEDS: lisinopriL 40 MG TABLET PO (07:33)
[2022-04-10] MEDS: Diclofenac Sodium Delayed Rel 50 MG TABLET.DR PO ×2 (07:33→20:44)
[2022-04-10] MEDS: dilTIAZem HCL CD 180 MG CAP.ER.24H 360 MG PO (07:34)
[2022-04-10] MEDS: hydrALAZINE HCl 25 MG TABLET PO ×3 (07:35→20:44)
[2022-04-10] MEDS: buPROPion HCL 75 MG TABLET 150 MG PO ×2 (07:35→20:43)
[2022-04-10] MEDS: Gabapentin 300 MG CAPSULE PO ×2 (07:35→20:44)
[2022-04-10] MEDS: Loratadine 10 MG TABLET PO (07:35)
[2022-04-10] MEDS: Insulin Lispro 100 UNIT/ML 3 ML VIAL SUBCUT ×6 (07:36→16:57)
[2022-04-10] MEDS: 0.9 % Sodium Chloride Flush 3 ML SYRINGE IVFLUSH ×3 (07:36→20:44)
[2022-04-10] MEDS: methADONE HCl 20 MG/2 ML ORAL.CONC 50 MG PO (07:37)
[2022-04-10] MEDS: Simethicone 80 MG TAB.CHEW PO ×2 (07:47→19:02)
[2022-04-10 07:50] LABS: Glucose, Whole Blood 254 mg/dL (60-115)
--- NOTE | 2022-04-10 10:22 | P.CDIC_ITS ---
CDI Concurrent Query Documentation Clarification: PHYSICIAN'S DOCUMENTATION REQUEST Date of Query: 04/10/22 1022 Patient Name: Anju Larios Admit Date: 04/07/22 Dear Doctor, A review of the medical record indicates additional documentation may be needed. Please review below and update the documentation accordingly. Clinical Indicators: Is there a diagnosis that correlates with the findings below: Risk Factors/Clinical Indicators/Treatments Labs: POC on 04/07 - POC on 04/08 POC on 04/09 Home medications: Insulin lispro 4 units TID Metformin 1000mg BID Based on the above, could you clarify in the Progress Notes the appropriate diagnosis, if significant, that supports the above abnormalities and additional evaluation, monitoring, and/or treatment rendered: * Hyperglycemia * Other (please specify) * Unable to determine Use of terms such as suspected, likely, concern for, or probable (associated with a specific diagnosis that is being evaluated, monitored, or treated as if it exists) are acceptable and can be coded in the inpatient setting, when documented at the time of discharge. Thank you, Yessenia Vasquez, MS, RN, CCRN Extension: [phone] Please use your independent medical judgment in providing your response. THIS QUERY IS PART OF THE PERMANENT MEDICAL RECORD
--- NOTE | 2022-04-10 10:35 | PM.CNPUL ---
History of Present Illness History of Present Illness Consult date: 04/10/22 Chief complaint: Acute on Chronic Resp Failure D/T COPD Exacerbatio Narrative: This is an inpatient pulmonary consultation. The patient is a 52-year-old female with a PMH of asthma-COPD overlap syndrome, chronic respiratory failure on 2.5L baseline oxygen, BiPAP dependent,? insulin-dependent DM2, HTN, and HLD , frequent hospitalization .? She called EMS for increase difficulty breathing feeling SOB,not getting relief with inhalers. She was found to be hypoxic by EMS and put on BiPAP prior to arriving to the ED.? Her O2 sat has been pretty much within normal on BiPAP, she is talking in full sentences. She states that she has been compliant with meds and have not been smoking, at least since last hospitalization las month.? ? Covid negative, CXR no acute finding. Overall is already feeling better. She still continues to have episodes of shortness of breath and hypoxia with activity. She is currently on Solu-Medrol. The patient had a chest x-ray demonstrating no acute disease. Her proBNP was within normal limits. I do believe that she may have a component of cor pulmonale. Therefore improving her volume status was still be helpful. Review of Systems Review of Systems: Gen: no fever Resp: + sob, no cough CV: no chest, + ANAYA, no leg edema GI: No n/v, no abd pain Neuro: No confusion PMFSH Past Medical History Medical History (Updated 04/10/22 @ 10:38 by Allan Brito MD) Abdominal pain Abnormal chest x-ray Acute respiratory failure Aspiration into airway Asthma-COPD overlap syndrome Cellulitis Chronic constipation Chronic respiratory failure Chronic respiratory failure Congestive heart failure COPD (chronic obstructive pulmonary disease) COPD exacerbation COPD mixed type Cor pulmonale Diabetes mellitus Essential hypertension Hyperlipidemia, unspecified Hypertensive cardiovascular disease Hypogammaglobulinemia Leukocytosis Limb swelling Morbid obesity Opioid dependence Poor dentition Pulmonary congestion Pulmonary nodule Rib fractures Status asthmaticus with COPD (chronic obstructive pulmonary disease) Tobacco abuse Type 2 diabetes mellitus Type 2 diabetes mellitus with unspecified complications Vomiting Family History Family History Father Diabetes Other Asthma Surgical History Surgical History H/O tubal ligation Social History Social History Household Members: Other Household Members Other:: daughter Housing: Apartment Do you presently have visiting nurse or other home services: Yes ([employer]) Unable to assess alcohol history related to: Unknown Alcohol intake: former Patient Tobacco Use Status: Former Tobacco user Quit Date: last admission January 2022 Tobacco use type: Cigarette Cigarettes Per Day: 1 Years Smoked: 35 e-Cigarette/Vaping Use: Currently Using Second Hand Smoke Exposure: No Use of substances other than those prescribed or required for medical reasons: No Substance Use Type: Opiates Currently Displaying Signs/Symptoms of Drug Intoxication Withdrawal: No Have you been hit, kicked, punched, or otherwise hurt by someone within the past year? If so, by whom?: No Do you feel safe in your current relationship?: No Current Relationship Is there a partner from a previous relationship who is making you feel unsafe now?: No Are you made to feel afraid or neglected: No Advance Directives: Yes Advance Directives on File: Yes Advance Directives Date on File: 06/12/21 Do you have thoughts of harming others: None Do you have a plan to hurt others: No Plan Recently lost weight without trying: No How much weight loss: Unsure Eating poorly because of decreased appetite: No Nutrition screen score: 2 Nutrition Risks: No Nutritional Risk Patient : No : No Poor oral hygiene: No service: No Current occupational status: disabled Meds Allergies Allergy/AdvReac Type Severity Reaction Status Date / Time No Known Allergies Allergy Verified 04/05/22 10:35 [No Known Allergies*] Active Medications: Current Medications Acetaminophen (Acetaminophen 325 Mg Tablet) 650 mg PO Q6H PRN PRN Reason: Pain, Mild (Pain Scale 1-3) Albuterol Sulfate (Albuterol Sulfate 90 Mcg 8 Gm Inhaler) 2 puff INHALE Q4H PRN PRN Reason: Shortness Of Breath Or Wheezing Albuterol/Ipratropium (Albuterol/Iprat 2.5/0.5mg 3 Ml Ampul.Neb) 3 ml INHALE Q4H PRN PRN Reason: for wheezing Last Admin: 04/10/22 07:26 Dose: 3 ml Atorvastatin Calcium (Atorvastatin Calcium 20 Mg Tablet) 20 mg PO BEDTIME ANA Last Admin: 04/09/22 20:26 Dose: 20 mg Budesonide (Budesonide 180 Mcg Aer.Pow.Ba) 1 puff INHALE RBID [facility] Last Admin: 04/10/22 07:28 Dose: 1 puff Bupropion HCl (Bupropion Hcl 75 Mg Tablet) 150 mg PO BID [facility] Last Admin: 04/10/22 07:35 Dose: 150 mg Albuterol Sulfate 2.5 mg/ (Ipratropium [place] 0.5 mg) 0 mg INHALE Q3H PRN PRN Reason: sob Diclofenac Sodium (Diclofenac Sodium Delayed Rel 50 Mg Tablet.Dr) 50 mg PO BID [facility] Last Admin: 04/10/22 07:33 Dose: 50 mg Diltiazem HCl (Diltiazem Hcl Cd 180 Mg Cap.Er.24h) 360 mg PO DAILY [facility]; Protocol Last Admin: 04/10/22 07:34 Dose: 360 mg Enoxaparin Sodium (Enoxaparin Sodium 40 Mg/0.4 Ml Syringe) 40 mg SUBCUT Q24H [facility] Last Admin: 04/09/22 16:33 Dose: 40 mg Ergocalciferol (Ergocalciferol (Vitamin D2) 1,250 Mcg Capsule) 1,250 mcg PO Q7D [facility] Last Admin: 04/07/22 21:04 Dose: 1,250 mcg Gabapentin (Gabapentin 300 Mg Capsule) 300 mg PO BID [facility] Last Admin: 04/10/22 07:35 Dose: 300 mg Hydralazine HCl (Hydralazine Hcl 25 Mg Tablet) 25 mg PO TID [facility]; Protocol Last Admin: 04/10/22 07:35 Dose: 25 mg Insulin Glargine (Insulin Glargine,Hum.Rec.Anlog 100 Unit/Ml 10 Ml Vial) 35 unit SUBCUT BEDTIME [facility] Last Admin: 04/09/22 21:27 Dose: 35 unit Insulin Human Lispro (Insulin Lispro 100 Unit/Ml 3 Ml Vial) 1 unit SUBCUT TIDAC [facility]; Protocol Last Admin: 04/10/22 07:36 Dose: 1 unit Insulin Human Lispro (Insulin Lispro 100 Unit/Ml 3 Ml Vial) 4 unit SUBCUT TIDAC [facility] Last Admin: 04/10/22 07:36 Dose: 4 unit Lisinopril (Lisinopril 40 Mg Tablet) 40 mg PO DAILY [facility]; Protocol Last Admin: 04/10/22 07:33 Dose: 40 mg Loratadine (Loratadine 10 Mg Tablet) 10 mg PO DAILY [facility] Last Admin: 04/10/22 07:35 Dose: 10 mg Metformin HCl (Metformin Hcl Er 500 Mg Tab.Er.24h) 1,000 mg PO BID [facility] Last Admin: 04/10/22 07:42 Dose: Not Given Methadone HCl (Methadone Hcl 20 Mg/2 Ml Oral.Conc) 50 mg PO DAILY [facility] Last Admin: 04/10/22 07:37 Dose: 50 mg Methylprednisolone Sodium Succinate (Methylprednisolone Sod Succ 40 Mg/Ml Vial) 40 mg IVPUSH Q6H [facility] Last Admin: 04/10/22 05:55 Dose: 40 mg Montelukast Sodium (Montelukast Sodium 10 Mg Tablet) 10 mg PO BEDTIME [facility] Last Admin: 04/09/22 20:26 Dose: 10 mg Pt Own(Arformoterol [Brovana] 15 Mcg/2 Ml Solution For Nebulization) 2 ml INHALE RBID [facility] Last Admin: 04/10/22 07:36 Dose: 2 ml Non-Formulary Medication (Roflumilast [Daliresp]) 500 mcg PO DAILY [facility] Omeprazole (Omeprazole 40 Mg Capsule.Dr) 40 mg PO DAILY@0630 [facility] Last Admin: 04/10/22 05:55 Dose: 40 mg Pharmacy Consult (Consult Rx Perform Med Rec) 1 each MISCELLANE ONCE PRN PRN Reason: Consult order Salmeterol Xinafoate (Salmeterol Xinafoate 50 Mcg Blst.W.Dev) 1 puff INHALE RBID [facility] Last Admin: 04/10/22 07:26 Dose: 1 puff Simethicone (Simethicone 80 Mg Tab.Chew) 80 mg PO QIDWMHS PRN PRN Reason: Abdominal Distention Last Admin: 04/10/22 07:47 Dose: 80 mg Sodium Chloride (0.9 % Sodium Chloride Flush 3 Ml Syringe) 3 ml IVFLUSH QSHIFT [facility] Last Admin: 04/10/22 07:36 Dose: 3 ml Theophylline (Theophylline Anhydrous Er 300 Mg Tab.Er.12h) 450 mg PO Q12H [facility] Last Admin: 04/10/22 07:32 Dose: 450 mg Tiotropium [place] (Tiotropium [place] 18 Mcg Cap.W.Dev) 1 puff INHALE DAILY [facility] Last Admin: 04/10/22 07:27 Dose: 1 puff Home Medications Medication Instructions Recorded Confirmed Last Taken Type albuterol sulfate 90 mcg/actuation 2 puff inhalation Q4H PRN 12/30/19 04/07/22 04/07/22 History aerosol inhaler (ProAir HFA) Shortness Of Breath Or Wheezing loratadine 10 mg tablet (Claritin) 10 mg PO DAILY 12/30/19 04/07/22 04/07/22 History montelukast 10 mg tablet 10 mg PO BEDTIME 12/30/19 04/07/22 04/06/22 History diltiazem HCl 360 mg capsule,24 360 mg PO DAILY 11/16/20 04/07/22 04/07/22 History hr,extended release (Tiadylt ER) roflumilast 500 mcg tablet 500 mcg PO DAILY 11/16/20 04/07/22 04/07/22 History (Daliresp) rosuvastatin 5 mg tablet 5 mg PO BEDTIME 11/16/20 04/07/22 04/06/22 History insulin lispro 100 unit/mL See Protocol subcut TIDAC 12/14/20 04/07/22 04/07/22 History subcutaneous solution (Humalog U-100 Insulin) metformin 500 mg tablet,extended 1,000 mg PO BID 05/18/21 04/07/22 04/07/22 History release 24 hr ergocalciferol (vitamin D2) 1,250 1,250 mcg PO QWEEK 06/06/21 04/07/22 Unknown History mcg (50,000 unit) capsule methadone 10 mg/mL oral concentrate 50 mg PO DAILY 06/06/21 04/08/22 04/07/22 History lisinopril 40 mg tablet 40 mg PO DAILY 07/30/21 04/07/22 04/07/22 History hydralazine 25 mg tablet 25 mg PO TID 11/02/21 04/07/22 04/07/22 History insulin lispro 100 unit/mL 4 unit subcut TIDAC 11/02/21 04/07/22 04/07/22 History subcutaneous solution omeprazole 40 mg capsule,delayed 40 mg PO DAILY@0630 11/02/21 04/07/22 04/07/22 History release Physical Exam Vital Signs: Vital Signs: Last Vital Signs Temp 96.4 F L 01/25/23 07:32 Pulse 111 H 04/10/22 07:32 Resp 20 04/10/22 07:32 BP 158/86 H 04/10/22 07:32 Pulse Ox 100 04/10/22 07:32 O2 Del Method 04/10/22 07:32 O2 Flow Rate 2 04/10/22 07:32 FiO2 25 04/09/22 07:26 BMI result Body Mass Index 38.0 Const: Other: General: AO X 3, no acute distress Resp: Diminish breath sound [place] CVS: S1,S2,RRR GI: +BS, NT, no distention Skin: No rash Neuro: motor grossly intact Psych: appropriate affect Results Laboratory Findings 04/07/22 12:59 04/07/22 12:59 ABG, PT/INR, D-dimer: PT/INR, D-dimer PT 11.3 SEC (10.0-13.1) 04/07/22 12:59 INR 1.0 (0.9-1.1) 04/07/22 12:59 Abnormal lab findings: Abnormal Labs 04/07/22 04/07/22 04/07/22 12:59 12:59 13:04 WBC 13.7 H RBC 4.01 L Hgb 11.0 L Hct 36.7 L MCHC 30.0 L MPV 9.3 L Immature Gran % (Auto) 0.6 H Neut % (Auto) 86.0 H Lymph % (Auto) 6.6 L Lymph # (Auto) 0.9 L Abs Immat Gran (auto) 0.08 H Absolute Neuts (auto) 11.8 H VBG pH 7.61 H* VBG HCO3 32 H Carbon Dioxide 35 H BUN 17 H POC Glucose Random Glucose 144 H Total Protein 6.4 L 04/07/22 04/07/22 04/08/22 18:21 20:19 07:21 WBC RBC Hgb Hct MCHC MPV Immature Gran % (Auto) Neut % (Auto) Lymph % (Auto) Lymph # (Auto) Abs Immat Gran (auto) Absolute Neuts (auto) VBG pH VBG HCO3 Carbon Dioxide BUN POC Glucose 226 H 297 H 213 H Random Glucose Total Protein 04/08/22 04/08/22 04/09/22 11:36 16:28 02:55 WBC RBC Hgb Hct MCHC MPV Immature Gran % (Auto) Neut % (Auto) Lymph % (Auto) Lymph # (Auto) Abs Immat Gran (auto) Absolute Neuts (auto) VBG pH VBG HCO3 Carbon Dioxide BUN POC Glucose 234 H 222 H 245 H Random Glucose Total Protein 04/09/22 04/09/22 04/09/22 07:18 10:57 11:18 WBC RBC Hgb Hct MCHC MPV Immature Gran % (Auto) Neut % (Auto) Lymph % (Auto) Lymph # (Auto) Abs Immat Gran (auto) Absolute Neuts (auto) VBG pH VBG HCO3 34 H Carbon Dioxide BUN POC Glucose 251 H 205 H Random Glucose Total Protein 04/09/22 04/09/22 04/10/22 16:19 20:29 07:14 WBC RBC Hgb Hct MCHC MPV Immature Gran % (Auto) Neut % (Auto) Lymph % (Auto) Lymph # (Auto) Abs Immat Gran (auto) Absolute Neuts (auto) VBG pH VBG HCO3 Carbon Dioxide BUN POC Glucose 274 H 274 H 254 H Random Glucose Total Protein Assessment and Plan (1) COPD exacerbation: Status: Acute (2) COPD (chronic obstructive pulmonary disease): Status: Acute (3) Cor pulmonale: Status: Acute (4) Acute and chronic respiratory failure: Qualifiers: Respiratory failure complication: hypoxia Qualified Code(s): J96.21 - Acute and chronic respiratory failure with hypoxia Status: Acute Plan Continue respiratory therapy Switch over to prednisone Lasix IV x1 Echocardiogram Noninvasive ventilation as needed and also while sleeping Hopefully discharge tomorrow after echocardiogram Time Spent With Patient Time: Total time managing care of this patient today ____ minutes. Procedures Date of Service Date of Service: 03/27/22
[2022-04-10] MEDS: Furosemide 20 MG/2 ML VIAL IVPUSH (10:54)
[2022-04-10 11:34] LABS: Glucose, Whole Blood 331 mg/dL (60-115)
[2022-04-10] MEDS: Enoxaparin Sodium 40 MG/0.4 ML SYRINGE SUBCUT (14:22)
--- NOTE | 2022-04-10 15:37 | HO.PM.IMPN ---
Subjective Subjective Date of Service: 04/11/22 Interval History: f/u for acute on chronic hypoxic respiratory failurel, copd Review of Systems Still on and off short of breath, less hypoxic, used bipap overnight Denies any chest pain or fever or chills Physical Exam Vital Signs: Vital Signs: Last Vital Signs Temp 97.4 F 04/10/22 15:29 Pulse 116 H 04/10/22 15:29 Resp 18 04/10/22 15:29 BP 141/80 H 04/10/22 15:29 Pulse Ox 97 04/10/22 15:29 O2 Del Method 04/10/22 15:29 O2 Flow Rate 2.0 04/10/22 15:29 FiO2 25 04/09/22 07:26 BMI result Body Mass Index 38.0 General: AO X 3, no acute distress Resp:? Diminish breath sound [place] CVS: S1,S2,RRR GI: +BS, NT, no distention Skin: No rash Neuro:? motor grossly intact Psych: appropriate affect Objective Data Active Medications Acetaminophen (Acetaminophen 325 Mg Tablet) 650 mg PO Q6H PRN PRN Reason: Pain, Mild (Pain Scale 1-3) Albuterol Sulfate (Albuterol Sulfate 90 Mcg 8 Gm Inhaler) 2 puff INHALE Q4H PRN PRN Reason: Shortness Of Breath Or Wheezing Albuterol/Ipratropium (Albuterol/Iprat 2.5/0.5mg 3 Ml Ampul.Neb) 3 ml INHALE Q4H PRN PRN Reason: for wheezing Last Admin: 04/10/22 07:26 Dose: 3 ml Documented By: RAHEL Atorvastatin Calcium (Atorvastatin Calcium 20 Mg Tablet) 20 mg PO BEDTIME [facility] Last Admin: 04/09/22 20:26 Dose: 20 mg Documented By: RIC Budesonide (Budesonide 180 Mcg Aer.Pow.Ba) 1 puff INHALE RBID [facility] Last Admin: 04/10/22 07:28 Dose: 1 puff Documented By: RAHEL Bupropion HCl (Bupropion Hcl 75 Mg Tablet) 150 mg PO BID [facility] Last Admin: 04/10/22 07:35 Dose: 150 mg Documented By: HALEIGH Albuterol Sulfate 2.5 mg/ (Ipratropium [place] 0.5 mg) 0 mg INHALE Q3H PRN PRN Reason: sob Diclofenac Sodium (Diclofenac Sodium Delayed Rel 50 Mg Tablet.Dr) 50 mg PO BID [facility] Last Admin: 04/10/22 07:33 Dose: 50 mg Documented By: HALIEGH Diltiazem HCl (Diltiazem Hcl Cd 180 Mg Cap.Er.24h) 360 mg PO DAILY [facility]; Protocol Last Admin: 04/10/22 07:34 Dose: 360 mg Documented By: HALEIGH Enoxaparin Sodium (Enoxaparin Sodium 40 Mg/0.4 Ml Syringe) 40 mg SUBCUT Q24H [facility] Last Admin: 04/10/22 14:22 Dose: 40 mg Documented By: HALEIGH Ergocalciferol (Ergocalciferol (Vitamin D2) 1,250 Mcg Capsule) 1,250 mcg PO Q7D [facility] Last Admin: 04/07/22 21:04 Dose: 1,250 mcg Documented By: OZORALB Gabapentin (Gabapentin 300 Mg Capsule) 300 mg PO BID [facility] Last Admin: 04/10/22 07:35 Dose: 300 mg Documented By: HALEIGH Hydralazine HCl (Hydralazine Hcl 25 Mg Tablet) 25 mg PO TID [facility]; Protocol Last Admin: 04/10/22 14:22 Dose: 25 mg Documented By: HALEIGH Insulin Glargine (Insulin Glargine,Hum.Rec.Anlog 100 Unit/Ml 10 Ml Vial) 35 unit SUBCUT BEDTIME [facility] Last Admin: 04/09/22 21:27 Dose: 35 unit Documented By: RIC Insulin Human Lispro (Insulin Lispro 100 Unit/Ml 3 Ml Vial) 1 unit SUBCUT TIDAC [facility]; Protocol Last Admin: 04/10/22 11:49 Dose: 1 unit Documented By: HALEIGH Insulin Human Lispro (Insulin Lispro 100 Unit/Ml 3 Ml Vial) 4 unit SUBCUT TIDAC [facility] Last Admin: 04/10/22 11:49 Dose: 4 unit Documented By: HALEIGH Lisinopril (Lisinopril 40 Mg Tablet) 40 mg PO DAILY [facility]; Protocol Last Admin: 04/10/22 07:33 Dose: 40 mg Documented By: HALEIGH Loratadine (Loratadine 10 Mg Tablet) 10 mg PO DAILY [facility] Last Admin: 04/10/22 07:35 Dose: 10 mg Documented By: HALEIGH Metformin HCl (Metformin Hcl Er 500 Mg Tab.Er.24h) 1,000 mg PO BID [facility] Last Admin: 04/10/22 07:42 Dose: Not Given Documented By: HALEIGH Non-Admin Reason: Patient Refused Methadone HCl (Methadone Hcl 20 Mg/2 Ml Oral.Conc) 50 mg PO DAILY [facility] Last Admin: 04/10/22 07:37 Dose: 50 mg Documented By: HALEIGH Methylprednisolone Sodium Succinate (Methylprednisolone Sod Succ 40 Mg/Ml Vial) 40 mg IVPUSH Q6H [facility] Last Admin: 04/10/22 11:49 Dose: 40 mg Documented By: HALEIGH Montelukast Sodium (Montelukast Sodium 10 Mg Tablet) 10 mg PO BEDTIME [facility] Last Admin: 04/09/22 20:26 Dose: 10 mg Documented By: RIC Pt Own(Arformoterol [Brovana] 15 Mcg/2 Ml Solution For Nebulization) 2 ml INHALE RBID [facility] Last Admin: 04/10/22 07:36 Dose: 2 ml Documented By: RAHEL Non-Formulary Medication (Roflumilast [Daliresp]) 500 mcg PO DAILY [facility] Omeprazole (Omeprazole 40 Mg Capsule.Dr) 40 mg PO DAILY@0630 [facility] Last Admin: 04/10/22 05:55 Dose: 40 mg Documented By: RIC Pharmacy Consult (Consult Rx Perform Med Rec) 1 each MISCELLANE ONCE PRN PRN Reason: Consult order Salmeterol Xinafoate (Salmeterol Xinafoate 50 Mcg Blst.W.Dev) 1 puff INHALE RBID [facility] Last Admin: 04/10/22 07:26 Dose: 1 puff Documented By: RAHEL Simethicone (Simethicone 80 Mg Tab.Chew) 80 mg PO QIDWMHS PRN PRN Reason: Abdominal Distention Last Admin: 04/10/22 07:47 Dose: 80 mg Documented By: HALEIGH Sodium Chloride (0.9 % Sodium Chloride Flush 3 Ml Syringe) 3 ml IVFLUSH QSHIFT [facility] Last Admin: 04/10/22 07:36 Dose: 3 ml Documented By: HALEIGH Theophylline (Theophylline Anhydrous Er 300 Mg Tab.Er.12h) 450 mg PO Q12H [facility] Last Admin: 04/10/22 07:32 Dose: 450 mg Documented By: HALEIGH Tiotropium [place] (Tiotropium [place] 18 Mcg Cap.W.Dev) 1 puff INHALE DAILY [facility] Last Admin: 04/10/22 07:27 Dose: 1 puff Documented By: RAHEL Labs 04/07/22 12:59 04/07/22 12:59 Labs: Laboratory Results - last 24 hr 04/09/22 04/09/22 04/10/22 16:19 20:29 07:14 POC Glucose 274 H 274 H 254 H 04/10/22 11:22 POC Glucose 331 H Assessment and Plan (1) Acute and chronic respiratory failure: Status: Acute (2) Acute respiratory failure: Status: Acute (3) COPD exacerbation: Status: Acute Plan 52-year-old female with a PMH of asthma-COPD overlap syndrome on BiPAP at home, chronic respiratory failure on 2.5L baseline oxygen, insulin-dependent DM2, HTN, and HLD brought to the ED with increasing SOB and found to have acute on chronic hypoxic respiratory failure related to COPD exacerbation. . #Acute on chronic hypoxic respiratory failure d/t copd exacerbation -Use BiPAP PRN during the day and scheduled at bedtime -Bronchodilators by Neb -IV steroid to PO prednisone -ongoing smoking cessation reinforced seen by pulm -continue current COPD exacerbation, switched to p.o. prednisone, added IV Lasix and echo. # leukocytosis - chronically elevated,likely secondary to steroid use # diabetes blood sugars? blood sugars on lower side? continue insulin sliding scale, schedule pre meal insulin and metformin,? and Lantus 35 units # hypertension - stable blood pressure, continue home meds # Mental health - continue home meds # Diabetic neuropathy, unspecified ?- continue gabapentin # History of substance abuse ?- continue methadone DVT prophylaxis with Lovenox Full code Need for inpatient: management of acute on chronic respiratory failure and requiring rescue BiPAP that needs close monitoring of respiratory status, cardiac workup also added. Time Spent With Patient Time: Total time managing care of this patient today ____ minutes. Quality Stroke Does the patient have a stroke diagnosis?: No VTE Prior VTE?: No VTE Risk Level:: Medical - moderate - high VTE Device Contraindication: Treatment Not Indicated VTE Drug Contraindication: N/A - Med Ordered
[2022-04-10] MEDS: Furosemide 40 MG/4 ML VIAL IVPUSH (16:08)
[2022-04-10 16:49] LABS: Glucose, Whole Blood 305 mg/dL (60-115)
[2022-04-10 20:30] LABS: Glucose, Whole Blood 253 mg/dL (60-115)
[2022-04-10] MEDS: Montelukast Sodium 10 MG TABLET PO (20:44)
[2022-04-10] MEDS: Insulin Glargine,Hum.rec.anlog 100 UNIT/ML 10 ML VIAL 35 UNIT SUBCUT (20:44)
[2022-04-10] MEDS: Atorvastatin Calcium 20 MG TABLET PO (20:44)
[2022-04-11] MEDS: traZODone HCL 50 MG TABLET PO (00:15)
[2022-04-11 00:57] VITALS: PULSE 105; RESP 20; O2SAT 94
[2022-04-11 03:23] LABS: Theophylline 17.8 MG/L ((10-20))
[2022-04-11 03:39] VITALS: BP 143/89; PULSE 104; RESP 20; TEMP 36.7; O2SAT 98
[2022-04-11 05:38] VITALS: PULSE 104; RESP 20; O2SAT 98
[2022-04-11] MEDS: Omeprazole 40 MG CAPSULE.DR PO (05:58)
[2022-04-11] MEDS: methylPREDNISolone Sod Succ 40 MG/ML VIAL IVPUSH ×3 (05:58→12:01)
[2022-04-11 07:42] LABS: Glucose, Whole Blood 335 mg/dL (60-115)
[2022-04-11] MEDS: Theophylline Anhydrous ER 300 MG TAB.ER.12H 450 MG PO (07:50)
[2022-04-11] MEDS: hydrALAZINE HCl 25 MG TABLET PO (07:51)
[2022-04-11] MEDS: dilTIAZem HCL CD 180 MG CAP.ER.24H 360 MG PO (07:52)
[2022-04-11] MEDS: Diclofenac Sodium Delayed Rel 50 MG TABLET.DR PO (07:52)
[2022-04-11] MEDS: Loratadine 10 MG TABLET PO (07:52)
[2022-04-11] MEDS: buPROPion HCL 75 MG TABLET 150 MG PO (07:52)
[2022-04-11] MEDS: lisinopriL 40 MG TABLET PO (07:52)
[2022-04-11] MEDS: Gabapentin 300 MG CAPSULE PO (07:52)
[2022-04-11] MEDS: Insulin Lispro 100 UNIT/ML 3 ML VIAL SUBCUT ×4 (07:53→12:01)
[2022-04-11] MEDS: 0.9 % Sodium Chloride Flush 3 ML SYRINGE IVFLUSH (07:56)
[2022-04-11 07:59] VITALS: BP 150/82; PULSE 102; RESP 20; TEMP 36.2; O2SAT 97
[2022-04-11] MEDS: methADONE HCl 20 MG/2 ML ORAL.CONC 50 MG PO (08:51)
[2022-04-11] MEDS: Salmeterol Xinafoate 50 MCG BLST.W.DEV 1 PUFF INHALE (09:12)
[2022-04-11] MEDS: Budesonide 180 MCG AER.POW.BA 1 PUFF INHALE (09:12)
[2022-04-11 09:13] VITALS: PULSE 110; RESP 18; O2SAT 94
[2022-04-11 12:00] VITALS: BP 138/83; PULSE 99; RESP 20; TEMP 36.3; O2SAT 95
[2022-04-11 12:22] LABS: Glucose, Whole Blood 263 mg/dL (60-115)
--- NOTE | 2022-04-11 14:03 | PM.DS ---
DS: Providers Provider Date of Service: 04/11/22 Date of admission: 04/07/22 15:01 Primary care physician: Kelli Benavides MD DS: Diagnosis Discharge Diagnosis (1) Acute and chronic respiratory failure: Status: Acute (2) Acute respiratory failure: Status: Acute (3) COPD exacerbation: Status: Acute (4) Morbid obesity: Status: Acute DS: Summary Hospital Course Hospital Course: 52-year-old female with a PMH of asthma-COPD overlap syndrome, chronic respiratory failure on 2.5L baseline oxygen, BiPAP dependent,? insulin-dependent DM2, HTN, and HLD , frequent hospitalization .? She called EMS for increase difficulty breathing feeling SOB,not getting relief with inhalers. She was found to be hypoxic by EMS and put on BiPAP prior to arriving to the ED.? Her O2 sat has been pretty much within normal on BiPAP, she is talking in full sentences. She states that she has been compliant with meds and have not been smoking, at least since last hospitalization las month.? ? Covid negative, CXR no acute finding. Overall is already feeling better. hospital course: patient was admitted for acute on chroinic hypoxemic respiratory failure secondary to COPD exacerbation: Initially had shortness of breath significantly patient gets on and off short of breath and have frequent admissions because of COPD exacerbation: Given nebs and steroids seems to be improving significantly, seen by Pulmonary recommended to continue her home medications,bipap, in addition added steroids. cardiac echo was also done: Heart function is a seems fine and similar to before, has mild pulmonary hypertension. Above management discussed the patient in detail and she understand and in agreement with the above plan. Follow-up with Pulmonary outpatient. Morbid obesity: Patient was strongly advised to lose weight. Plan: Complete course of steroids. Follow-up with Pulmonary outpatient. Assessment and plan coordination time spent 50 minute. Time Spent with Patient Time attestation: Total time managing care of this patient today ____ minutes. Discharge coordination time: Greater than 30 minutes Quality: Safe Use of Opioids Does Pt have an Active Cancer Diagnosis on the Problem List?: No Quality: Stroke Does the patient have a stroke diagnosis?: No Physical Exam Vital Signs: Vital Signs: Last Vital Signs Temp 97.3 F 04/11/22 12:00 Pulse 99 04/11/22 12:00 Resp 20 04/11/22 12:00 BP 138/83 04/11/22 12:00 Pulse Ox 95 04/11/22 12:00 O2 Del Method 04/11/22 12:00 O2 Flow Rate 2 04/11/22 12:00 FiO2 25 04/09/22 07:26 BMI result Body Mass Index 38.0 General: AO X 3, no acute distress Resp:? Diminish breath sound masoud CVS: S1,S2,RRR GI: +BS, NT, no distention Skin: No rash Neuro:? motor grossly intact Psych: appropriate affect DS: Data Data Completed and Pending Completed studies during hospitalization [Text1]: Procedures Assistance with Respiratory Ventilation, 24-96 Consecutive Hours, Continuous Positive Airway Pressure (05/18/21) Assistance with Respiratory Ventilation, Less than 24 Consecutive Hours, Continuous Positive Airway Pressure (02/13/22) Insertion of Endotracheal Airway into Trachea, Via Natural or Artificial Opening (12/21/21) Insertion of Infusion Device into Right Atrium, Percutaneous Approach (12/21/21) Insertion of Infusion Device into Superior Vena Cava, Percutaneous Approach (11/02/21) Introduction of Vasopressor into Peripheral Vein, Percutaneous Approach (12/21/21) Respiratory Ventilation, 24-96 Consecutive Hours (12/21/21) Ultrasonography of Superior Vena Cava, Guidance (12/21/21) Labs on day of discharge: Laboratory Results - last 24 hr 04/10/22 04/10/22 04/10/22 08:20 16:30 20:17 POC Glucose 305 H 253 H Theophylline 17.8 04/11/22 04/11/22 07:27 12:02 POC Glucose 335 H 263 H Theophylline Imaging Chest x-ray: Radiologist's impression: ITS Impressions Chest X-Ray 04/07/22 13:38 IMPRESSION: No acute disease. Discharge Plan Discharge Anticipated Discharge Date/Time: 04/11/22 13:23 Patient Disposition: Home, Self-Care Discharge Diagnosis: Acute hypoxemic respiratory failure secondary to COPD exacerbation Referrals: Kelli Benavides MD [Primary Care Provider] - 04/22/22 9:00 am (You have an appointment scheduled with PCP, call office if you need to reschedule.) Discharge Medications: New prednisone 10 mg tablet See Taper PO DIRECTED Qty: 30 0RF Taper: Prednisone 40 mg daily for 3 Days and 0 Hour 30 mg daily for 3 Days and 0 Hour 20 mg daily for 3 Days and 0 Hour 10 mg daily for 3 Days and 0 Hour Rx Instructions: see taper instructions Continued Spiriva with HandiHaler 18 mcg capsule, w/inhalation device 1 cap inhalation DAILY Qty: 30 11RF diclofenac potassium 50 mg tablet 50 mg PO BID 30 Days Qty: 60 0RF ipratropium-albuterol 0.5 mg-3 mg(2.5 mg base)/3 mL solution for nebulization 3 ml PO Q4H PRN (Reason: for wheezing) Qty: 540 6RF gabapentin 300 mg capsule 300 mg PO BID 30 Days Qty: 60 3RF diltiazem HCl [Tiadylt ER] 360 mg capsule,extended release 24 hr 360 mg PO DAILY rosuvastatin 5 mg tablet 5 mg PO BEDTIME roflumilast [Daliresp] 500 mcg tablet 500 mcg PO DAILY insulin lispro [Humalog U-100 Insulin] 100 unit/mL solution See Protocol subcut TIDAC Protocol: Insulin Correction Scale Less than or equal to 110 ---- Give (units): 0 111 to 150 Give (units): 0 151 to 200 Give (units): 2 201 to 250 Give (units): 4 251 to 300 Give (units): 6 301 to 350 Give (units): 8 Greater than 350 Give (units): 10 Call MD if Blood Glucose > : 350 metformin 500 mg tablet extended release 24 hr 1,000 mg PO BID hydralazine 25 mg tablet 25 mg PO TID insulin lispro 100 unit/mL solution 4 unit subcut TIDAC omeprazole 40 mg capsule,delayed release(DR/EC) 40 mg PO DAILY@0630 insulin glargine [Lantus U-100 Insulin] 100 unit/mL solution 35 unit subcut BEDTIME Qty: 10 0RF methadone 10 mg/mL Concentrate 50 mg PO DAILY ergocalciferol (vitamin D2) 1,250 mcg (50,000 unit) capsule 1,250 mcg PO QWEEK lisinopril 40 mg tablet 40 mg PO DAILY Serevent Diskus 50 mcg/dose Blister With Device 1 inh inhalation RBID 30 Days Qty: 60 2RF simethicone [Gas Relief (simethicone)] 80 mg Tablet,Chewable 80 mg PO QIDWMHS PRN (Reason: Abdominal Distention) Qty: 30 0RF montelukast 10 mg tablet 10 mg PO BEDTIME albuterol sulfate [ProAir HFA] 90 mcg/actuation HFA aerosol inhaler 2 puff inhalation Q4H PRN (Reason: Shortness Of Breath Or Wheezing) loratadine [Claritin] 10 mg tablet 10 mg PO DAILY Brovana 15 mcg/2 mL solution for nebulization 2 ml inhalation Q12H 30 Days Qty: 120 11RF budesonide 0.5 mg/2 mL suspension for nebulization 0.5 mg inhalation BID Qty: 120 11RF bupropion HCl 75 mg tablet 150 mg PO BID 30 Days Qty: 120 3RF theophylline 450 mg tablet extended release 12 hr 450 mg PO Q12H 30 Days Qty: 60 6RF Discharge Orders: Discharge Order (Routine); Ordered 04/11/22 Ordered By: Marielos Guillermo Diet: Advance to usual diet Activity on Discharge: As tolerated Stand Alone Forms: Patient Portal Discharge page Care Plan Goals: patient was admitted for acute hypoxemic respiratory failure secondary to COPD exacerbation: Initially had shortness of breath significantly patient gets on and off short of breath and have frequent admissions because of COPD exacerbation: Given nebs and steroids seems to be improving significantly, seen by Pulmonary recommended to continue her home medications,bipap, in addition added steroids. Heart ultrasound was also done: Heart function is a seems fine and similar to before, has mild pulmonary hypertension. Above management discussed the patient in detail and she understand and in agreement with the above plan. Follow-up with Pulmonary outpatient. Health Concerns: As above. Plan of Treatment: As above. Assessment: As above.
== END 2022-04-11 14:31 | disposition home or self-care (01) | DRG 140 ==
LOC: HO.ED 13:16 → HO.EDOVER 15:11 → HO.S3 17:06 → HO.IMC 04-09 12:25 → HO.S3 04-09 13:19
PROVIDERS: Admitting Provider Internal Medicine; Emergency Provider Emergency Medicine; PCP Family Medicine; Visit Provider Internal Medicine
DX: J44.1 Chronic obstructive pulmonary disease with (acute) exacerbation (principal); J96.21 Acute and chronic respiratory failure with hypoxia; I27.81 Cor pulmonale (chronic); E11.40 Type 2 diabetes mellitus with diabetic neuropathy, unspecified; D72.829 Elevated white blood cell count, unspecified; E66.01 Morbid (severe) obesity due to excess calories; Z68.38 Body mass index [BMI] 38.0-38.9, adult; E78.5 Hyperlipidemia, unspecified; F11.20 Opioid dependence, uncomplicated; I10 Essential (primary) hypertension; Z99.81 Dependence on supplemental oxygen; Z87.891 Personal history of nicotine dependence; Z79.4 Long term (current) use of insulin; Z79.899 Other long term (current) drug therapy
CPT/HCPCS: 36415; 71045; 80053; 80198; 82803; 82947; 83880; 84484; 85025; 85610; 87635; 93005; 93306; 94640; 94660; 99285; J1650; J1940; J2920; J2930; Q9957

== ENCOUNTER 2022-04-15 10:01 | Outpatient (REF) | payer MEDICAID, SELFPAY | END 2022-04-15 10:02 | disposition home or self-care (01) | LOC: HO.MDS 10:01 | PROVIDERS: Visit Provider Hospitalist | DX: D80.1 Nonfamilial hypogammaglobulinemia (principal) | CPT/HCPCS: 96365; 96366; J1569 ==

== ENCOUNTER 2022-05-04 00:10 | Emergency (ER) | payer MEDICAID, SELFPAY ==
--- NOTE | ~2022-05-04 | XR_ITS ---
EXAMINATION: XR CHEST CLINICAL INFORMATION: Short of breath COMPARISON: 04/07/2022 TECHNIQUE: Frontal view of the chest was obtained. FINDINGS: Cardiac leads overlie the chest. The lungs are well expanded. There is no focal consolidation, edema, or effusion. No pneumothorax. The cardiomediastinal silhouette is within normal limits. No acute osseous abnormality. XR/XR chest 1V IMPRESSION: No acute pulmonary disease.
[2022-05-04 00:17] VITALS: BP 142/70; BP 175/90; PULSE 100; PULSE 74; RESP 20; TEMP 36.9; O2SAT 100; O2SAT 90; BMI 36.8
[2022-05-04 00:41] LABS: MANUAL DIFF FLAG NO
[2022-05-04 00:42] LABS: Basophils Percent Auto 0.2 % (0-2); Eosinophils Percent Auto 0.2 % (0-4); Hematocrit 37.2 % (37.0-47.0); Hemoglobin 11.6 g/dl (12.0-16.0); Imm Gran Abs Auto 0.04 X10*3/uL (0.00-0.03); Imm Gran Pct Auto 0.4 % (0.0-0.4); Lymphocytes Absolute Auto 1.3 X10*3/uL (1.2-4.9); Lymphocytes Percent Auto 12.1 % (20-40); Mean Corpuscular HGB Conc 31.2 g/dl (31.0-35.0); Mean Corpuscular Hemoglobin 27.4 pg (27.0-33.0); Mean Corpuscular Volume 87.9 fL (80.0-98.0); Mean Platelet Volume 8.7 fL (9.4-12.3); Monocytes Absolute Auto 0.7 X10*3/uL (0.1-1.2); Monocytes Percent Auto 6.7 % (2-11); Neutrophils Absolute Auto 8.7 x10*3/uL (2.0-8.3); Neutrophils Percent Auto 80.4 % (45-73); Platelet Count 377 X10*3/uL (160-400); Red Blood Count 4.23 X10*6/uL (4.20-5.50); White Blood Count 10.8 X10*3/uL (4.8-10.8)
[2022-05-04 00:56] LABS: Anion Gap 15 (12-20); Blood Urea Nitrogen 22 mg/dL (9-16); Calcium 9.6 mg/dL (8.4-10.2); Carbon Dioxide 33 mmol/L (22-29); Chloride 100 mmol/L (96-108); Creatinine Clr Calc Pharmacy 88.6; Estimated Glomerular Filt Rate > 60; Glucose Random 173 mg/dL (60-115); Potassium 4.1 mmol/L (3.3-5.1); Sodium 144 mmol/L (135-145)
--- NOTE | 2022-05-04 01:09 | ED.SOB ---
HPI - SOB/Dyspnea General Chief Complaint: Dyspnea Stated Complaint: sob Time Seen by Provider: 05/04/22 00:24 Source: patient Mode of arrival: EMS Limitations: no limitations History of Present Illness HPI Narrative: Patient 52 years old with history of asthma/COPD overlap syndrome, chronic hypercapnia and hypoxic respiratory failure on 2 L nasal cannula home oxygen, diabetes mellitus, hypertension, hyperlipidemia, tobacco use, hypogammaglobulinemia on IVIG, opiate dependence on methadone pain here frequently for increased shortness of breath comes here for similar presentation for increased shortness of breath for for few hours prior to arrival. Patient is saturating 100% on oxygen 2 L wide nasal cannula per EMS received DuoNeb treatment and feeling much better on arrival does complaining of some pain in the back of the neck no chest pain Related Data Home Medications Medication Instructions Recorded Confirmed albuterol sulfate 90 mcg/actuation 2 puff inhalation Q4H PRN 12/30/19 04/07/22 aerosol inhaler (ProAir HFA) Shortness Of Breath Or Wheezing loratadine 10 mg tablet (Claritin) 10 mg PO DAILY 12/30/19 04/07/22 montelukast 10 mg tablet 10 mg PO BEDTIME 12/30/19 04/07/22 diltiazem HCl 360 mg capsule,24 360 mg PO DAILY 11/16/20 04/07/22 hr,extended release (Tiadylt ER) roflumilast 500 mcg tablet 500 mcg PO DAILY 11/16/20 04/07/22 (Daliresp) rosuvastatin 5 mg tablet 5 mg PO BEDTIME 11/16/20 04/07/22 insulin lispro 100 unit/mL See Protocol subcut TIDAC 12/14/20 04/07/22 subcutaneous solution (Humalog U-100 Insulin) metformin 500 mg tablet,extended 1,000 mg PO BID 05/18/21 04/07/22 release 24 hr ergocalciferol (vitamin D2) 1,250 1,250 mcg PO QWEEK 06/06/21 04/07/22 mcg (50,000 unit) capsule methadone 10 mg/mL oral concentrate 50 mg PO DAILY 06/06/21 04/08/22 lisinopril 40 mg tablet 40 mg PO DAILY 07/30/21 04/07/22 hydralazine 25 mg tablet 25 mg PO TID 11/02/21 04/07/22 insulin lispro 100 unit/mL 4 unit subcut TIDAC 11/02/21 04/07/22 subcutaneous solution omeprazole 40 mg capsule,delayed 40 mg PO DAILY@0630 11/02/21 04/07/22 release Previous Rx's Medication Instructions Recorded tiotropium bromide 18 mcg capsule 1 cap inhalation DAILY #30 ea 06/25/21 with inhalation device (Spiriva with HandiHaler) arformoterol 15 mcg/2 mL solution 2 ml inhalation Q12H 30 days #120 07/24/21 for nebulization (Brovana) mL budesonide 0.5 mg/2 mL suspension 0.5 mg (2 mL) inhalation BID #120 07/24/21 for nebulization mL diclofenac potassium 50 mg tablet 50 mg PO BID 30 days #60 tabs 10/08/21 bupropion HCl 75 mg tablet 150 mg PO BID 30 days #120 tabs 12/14/21 theophylline 450 mg 450 mg PO Q12H 30 days #60 tabs 12/14/21 tablet,extended release,12 hr ipratropium 0.5 mg-albuterol 3 mg 3 ml PO Q4H PRN for wheezing #540 12/20/21 (2.5 mg base)/3 mL nebulization mL soln salmeterol 50 mcg/dose blister 1 inh inhalation RBID 30 days #60 01/05/22 powder for inhalation (Serevent ea Diskus) simethicone 80 mg chewable tablet 80 mg PO QIDWMHS PRN Abdominal 01/05/22 (Gas Relief (simethicone)) Distention #30 tabs insulin glargine 100 unit/mL 35 unit (0.35 mL) subcut BEDTIME 02/18/22 subcutaneous solution (Lantus #10 mL U-100 Insulin) gabapentin 300 mg capsule 300 mg PO BID 30 days #60 caps 04/03/22 prednisone 10 mg tablet See Taper PO DIRECTED #30 tabs 04/11/22 Allergies Allergy/AdvReac Type Severity Reaction Status Date / Time No Known Allergies Allergy Verified 05/04/22 00:21 [No Known Allergies*] Review of Systems Review of Systems: Yes all other systems are reviewed and are negative PMFSH Past Medical History Medical History Abdominal pain Abnormal chest x-ray Acute respiratory failure Aspiration into airway Asthma-COPD overlap syndrome Cellulitis Chronic constipation Chronic respiratory failure Chronic respiratory failure Congestive heart failure COPD (chronic obstructive pulmonary disease) COPD exacerbation COPD mixed type Cor pulmonale Diabetes mellitus Essential hypertension Hyperlipidemia, unspecified Hypertensive cardiovascular disease Hypogammaglobulinemia Leukocytosis Limb swelling Morbid obesity Opioid dependence Poor dentition Pulmonary congestion Pulmonary nodule Rib fractures Status asthmaticus with COPD (chronic obstructive pulmonary disease) Tobacco abuse Type 2 diabetes mellitus Type 2 diabetes mellitus with unspecified complications Vomiting Surgical History H/O tubal ligation Family History Family History Father Diabetes Other Asthma Social History Social History Household Members: Other Household Members Other:: daughter Housing: Apartment Do you presently have visiting nurse or other home 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) Unable to assess alcohol history related to: Unknown Alcohol intake: former Patient Tobacco Use Status: Former Tobacco user Quit Date: last admission January 2022 Tobacco use type: Cigarette Cigarettes Per Day: 1 Years Smoked: 35 e-Cigarette/Vaping Use: Currently Using Second Hand Smoke Exposure: No Substance Use Type: Opiates Advance Directives: Yes Advance Directives on File: Yes Advance Directives Date on File: 06/12/21 service: No Current occupational status: disabled Physical Exam Vital Signs: Vital Signs: Last Vital Signs Temp 98.5 F 05/04/22 00:17 Pulse 74 05/04/22 00:17 Resp 20 05/04/22 00:17 BP 142/70 H 05/04/22 00:17 Pulse Ox 100 05/04/22 00:17 Oxygen Flow Rate 5 05/04/22 00:17 BMI result Body Mass Index 36.8 Appearance: Alert. Oriented X3. In mild respiratory distress on 2 L nasal cannula saturating 98% . Eyes: PERRLA, No Nystagmus ENT: Pharynx normal. Oral Mucosa moist Neck: Normal inspection. Neck supple. CVS: Normal heart rate and rhythm. Pulses normal. Respiratory: No respiratory distress. Equal air entry bilateral, prolonged expiration decreased air entry bilateral no cracks Abdomen: Soft and nontender. Bowel sounds are present, no mass palpable, no CVA tenderness Skin: Skin warm and dry. Normal skin color. Normal skin turgor. Extremities: No lower extremity edema. No calf tenderness Neuro: Oriented X 3. No motor deficit. Medical Decision Making Medical Decision Making [facility] Narrative: Patient has stable labs negative chest x-ray with frequent ED visits for his asthma/COPD exacerbation to give extra dose of Decadron saturating 100% on 2 lpm Lab Data [facility] Lab Attestation statement: I reviewed the patient's lab results. 05/04/22 00:36 05/04/22 00:36 Labs: Lab Results 05/04/22 05/04/22 Range/Units 00:36 00:36 WBC 10.8 (4.8-10.8) X10*3/uL RBC 4.23 (4.20-5.50) X10*6/uL Hgb 11.6 L (12.0-16.0) g/dl Hct 37.2 (37.0-47.0) % MCV 87.9 (80.0-98.0) fL MCH 27.4 (27.0-33.0) pg MCHC 31.2 (31.0-35.0) g/dl RDW 15.0 (11.0-16.0) % Plt Count 377 (160-400) X10*3/uL MPV 8.7 L (9.4-12.3) fL Immature Gran % (Auto) 0.4 (0.0-0.4) % Neut % (Auto) 80.4 H (45-73) % Lymph % (Auto) 12.1 L (20-40) % [place] % (Auto) 6.7 (2-11) % Eos % (Auto) 0.2 (0-4) % Baso % (Auto) 0.2 (0-2) % Lymph # (Auto) 1.3 (1.2-4.9) X10*3/uL [place] # (Auto) 0.7 (0.1-1.2) X10*3/uL Eos # (Auto) 0.0 (0.0-0.4) X10*3/uL Baso # (Auto) 0.0 (0.0-0.2) X10*3/uL Abs Immat Gran (auto) 0.04 H (0.00-0.03) X10*3/uL Absolute Neuts (auto) 8.7 H (2.0-8.3) x10*3/uL Absolute Nucleated RBC 0.000 (0.0-0.012) X10*3/uL Nucleated RBC % (auto) 0.0 (0.0-0.2) /100WBC Sodium 144 (135-145) mmol/L Potassium 4.1 (3.3-5.1) mmol/L Chloride 100 (96-108) mmol/L Carbon Dioxide 33 H (22-29) mmol/L Anion Gap 15 (12-20) BUN 22 H (9-16) mg/dL Creatinine 0.75 (0.5-1.4) mg/dL Estim Creat Clear Calc 88.6 Estimated GFR > 60 Random Glucose 173 H (60-115) mg/dL Calcium 9.6 (8.4-10.2) mg/dL Discharge Plan Discharge Clinical Impression: Acute exacerbation of chronic obstructive airways disease Patient Disposition: Home, Self-Care Instructions: COPD (Chronic Obstructive Pulmonary Disease) (ED) Additional Instructions: Continue taking your inhaler/nebulizing treatment at home continue to have your oxygen and follow with your physical biochemist Stop smoking Prescriptions: No Action Spiriva with HandiHaler 18 mcg capsule, w/inhalation device 1 cap inhalation DAILY Qty: 30 11RF diclofenac potassium 50 mg tablet 50 mg PO BID 30 Days Qty: 60 0RF ipratropium-albuterol 0.5 mg-3 mg(2.5 mg base)/3 mL solution for nebulization 3 ml PO Q4H PRN (Reason: for wheezing) Qty: 540 6RF gabapentin 300 mg capsule 300 mg PO BID 30 Days Qty: 60 3RF diltiazem HCl [Tiadylt ER] 360 mg capsule,extended release 24 hr 360 mg PO DAILY rosuvastatin 5 mg tablet 5 mg PO BEDTIME roflumilast [Daliresp] 500 mcg tablet 500 mcg PO DAILY insulin lispro [Humalog U-100 Insulin] 100 unit/mL solution See Protocol subcut TIDAC Protocol: Insulin Correction Scale Less than or equal to 110 ---- Give (units): 0 111 to 150 Give (units): 0 151 to 200 Give (units): 2 201 to 250 Give (units): 4 251 to 300 Give (units): 6 301 to 350 Give (units): 8 Greater than 350 Give (units): 10 Call MD if Blood Glucose > : 350 metformin 500 mg tablet extended release 24 hr 1,000 mg PO BID hydralazine 25 mg tablet 25 mg PO TID insulin lispro 100 unit/mL solution 4 unit subcut TIDAC omeprazole 40 mg capsule,delayed release(DR/EC) 40 mg PO DAILY@0630 insulin glargine [Lantus U-100 Insulin] 100 unit/mL solution 35 unit subcut BEDTIME Qty: 10 0RF methadone 10 mg/mL Concentrate 50 mg PO DAILY ergocalciferol (vitamin D2) 1,250 mcg (50,000 unit) capsule 1,250 mcg PO QWEEK lisinopril 40 mg tablet 40 mg PO DAILY Serevent Diskus 50 mcg/dose Blister With Device 1 inh inhalation RBID 30 Days Qty: 60 2RF simethicone [Gas Relief (simethicone)] 80 mg Tablet,Chewable 80 mg PO QIDWMHS PRN (Reason: Abdominal Distention) Qty: 30 0RF prednisone 10 mg tablet See Taper PO DIRECTED Qty: 30 0RF Taper: Prednisone 40 mg daily for 3 Days and 0 Hour 30 mg daily for 3 Days and 0 Hour 20 mg daily for 3 Days and 0 Hour 10 mg daily for 3 Days and 0 Hour Rx Instructions: see taper instructions montelukast 10 mg tablet 10 mg PO BEDTIME albuterol sulfate [ProAir HFA] 90 mcg/actuation HFA aerosol inhaler 2 puff inhalation Q4H PRN (Reason: Shortness Of Breath Or Wheezing) loratadine [Claritin] 10 mg tablet 10 mg PO DAILY Brovana 15 mcg/2 mL solution for nebulization 2 ml inhalation Q12H 30 Days Qty: 120 11RF budesonide 0.5 mg/2 mL suspension for nebulization 0.5 mg inhalation BID Qty: 120 11RF bupropion HCl 75 mg tablet 150 mg PO BID 30 Days Qty: 120 3RF theophylline 450 mg tablet extended release 12 hr 450 mg PO Q12H 30 Days Qty: 60 6RF
[2022-05-04] MEDS: oxyCODONE HCl Immed Release 5 MG TABLET 10 MG PO (01:30)
[2022-05-04] MEDS: dexAMETHasone 2 MG TABLET 10 MG PO (01:30)
== END 2022-05-04 01:38 | disposition home or self-care (01) ==
PROVIDERS: Emergency Provider Internal Medicine; PCP Family Medicine
DX: J44.1 Chronic obstructive pulmonary disease with (acute) exacerbation (principal); R06.02 Shortness of breath; E11.9 Type 2 diabetes mellitus without complications; I10 Essential (primary) hypertension; E78.5 Hyperlipidemia, unspecified; F11.20 Opioid dependence, uncomplicated; E66.9 Obesity, unspecified; Z68.36 Body mass index [BMI] 36.0-36.9, adult; Z99.81 Dependence on supplemental oxygen; Z87.891 Personal history of nicotine dependence; Z79.02 Long term (current) use of antithrombotics/antiplatelets; Z79.4 Long term (current) use of insulin; Z79.899 Other long term (current) drug therapy
CPT/HCPCS: 36415; 71045; 80048; 85025; 99283; J8540

== ENCOUNTER → 2022-05-08 11:17 | Outpatient (BNVA) | payer MEDICAID, SELFPAY | PROVIDERS: PCP Family Medicine; Visit Provider Hospitalist | DX: J44.9 Chronic obstructive pulmonary disease, unspecified (principal); J96.11 Chronic respiratory failure with hypoxia; J96.12 Chronic respiratory failure with hypercapnia; R91.1 Solitary pulmonary nodule; D80.1 Nonfamilial hypogammaglobulinemia; Z79.899 Other long term (current) drug therapy; Z87.891 Personal history of nicotine dependence | CPT/HCPCS: 94618; 99212 ==

== ENCOUNTER 2022-05-13 09:59 | Outpatient (REF) | payer MEDICAID, SELFPAY | END 2022-05-13 10:00 | disposition home or self-care (01) | LOC: HO.MDS 09:59 | PROVIDERS: Visit Provider Hospitalist | DX: D80.1 Nonfamilial hypogammaglobulinemia (principal) | CPT/HCPCS: 96365; 96366; J1569 ==

== ENCOUNTER 2022-05-13 20:38 | Emergency (ER) | payer MEDICAID, SELFPAY ==
--- NOTE | ~2022-05-13 | XR_ITS ---
EXAMINATION: XR CHEST CLINICAL INFORMATION: Shortness of breath COMPARISON: Chest radiograph 05/04/[address] 11/02/2021 TECHNIQUE: Frontal view of the chest was obtained. FINDINGS: Heart size normal. Multiple old bilateral rib fractures are seen. No infiltrates, effusions or lung masses are seen. XR/XR chest 1V IMPRESSION: No acute intrathoracic disease. Old rib fractures.
--- NOTE | 2022-05-13 20:51 | ECG_ITS ---
Test Reason : SHORTNESS OF BREATH Blood Pressure : / mmHG Vent. Rate : 091 BPM Atrial Rate : 091 BPM P-R Int : 148 ms QRS Dur : 122 ms QT Int : 394 ms P-R-T Axes : 061 013 039 degrees QTc Int : 484 ms Normal sinus rhythm Right bundle branch block Abnormal ECG When compared with ECG of 07-APR-2022 13:17, Normal sinus rhythm has replaced Ectopic atrial rhythm Referred By: Generic ED Physician Electronically Signed By:TRISTAN CASTREJON MD
[2022-05-13 20:53] VITALS: BP 130/68; BP 138/80; PULSE 92; PULSE 98; RESP 19; TEMP 36.8; O2SAT 97; O2SAT 98; BMI 37.8
[2022-05-13 20:58] VITALS: BP 130/68; PULSE 92; RESP 14; TEMP 36.8; O2SAT 96
--- NOTE | 2022-05-13 21:18 | ED_ITS ---
HPI - SOB/Dyspnea General Chief Complaint: Dyspnea Stated Complaint: SOB Time Seen by Provider: 05/13/22 21:17 Source: patient Mode of arrival: EMS Limitations: no limitations History of Present Illness HPI Narrative: Patient 52 years old with history of asthma/COPD overlap syndrome, chronic hypercapnia and hypoxic respiratory failure on 2 L nasal cannula home oxygen, diabetes mellitus, hypertension, hyperlipidemia, tobacco use, hypogammaglobulinemia on IVIG, opiate dependence on methadone been here frequently almost every 2 weeks was seen here on 05/04 for shortness of breath comes here again for shortness of breath for last 2 days patient already on prednisone saturating 90% before EMS gave DuoNeb treatment after treatment patient saturating 97% patient calm and relax speaking full sentences stable labs and normal chest Xray Related Data Home Medications Medication Instructions Recorded Confirmed albuterol sulfate 90 mcg/actuation 2 puff inhalation Q4H PRN 12/30/19 04/07/22 aerosol inhaler (ProAir HFA) Shortness Of Breath Or Wheezing loratadine 10 mg tablet (Claritin) 10 mg PO DAILY 12/30/19 04/07/22 montelukast 10 mg tablet 10 mg PO BEDTIME 12/30/19 04/07/22 diltiazem HCl 360 mg capsule,24 360 mg PO DAILY 11/16/20 04/07/22 hr,extended release (Tiadylt ER) roflumilast 500 mcg tablet 500 mcg PO DAILY 11/16/20 04/07/22 (Daliresp) rosuvastatin 5 mg tablet 5 mg PO BEDTIME 11/16/20 04/07/22 insulin lispro 100 unit/mL See Protocol subcut TIDAC 12/14/20 04/07/22 subcutaneous solution (Humalog U-100 Insulin) metformin 500 mg tablet,extended 1,000 mg PO BID 05/18/21 04/07/22 release 24 hr ergocalciferol (vitamin D2) 1,250 1,250 mcg PO QWEEK 06/06/21 04/07/22 mcg (50,000 unit) capsule methadone 10 mg/mL oral concentrate 50 mg PO DAILY 06/06/21 04/08/22 lisinopril 40 mg tablet 40 mg PO DAILY 07/30/21 04/07/22 hydralazine 25 mg tablet 25 mg PO TID 08/19/22 01/22/23 insulin lispro 100 unit/mL 4 unit subcut TIDAC 11/02/21 04/07/22 subcutaneous solution omeprazole 40 mg capsule,delayed 40 mg PO DAILY@0630 11/02/21 04/07/22 release Previous Rx's Medication Instructions Recorded tiotropium bromide 18 mcg capsule 1 cap inhalation DAILY #30 ea 06/25/21 with inhalation device (Spiriva with HandiHaler) arformoterol 15 mcg/2 mL solution 2 ml inhalation Q12H 30 days #120 07/24/21 for nebulization (Brovana) mL budesonide 0.5 mg/2 mL suspension 0.5 mg (2 mL) inhalation BID #120 07/24/21 for nebulization mL bupropion HCl 75 mg tablet 150 mg PO BID 30 days #120 tabs 12/14/21 ipratropium 0.5 mg-albuterol 3 mg 3 ml PO Q4H PRN for wheezing #540 12/20/21 (2.5 mg base)/3 mL nebulization mL soln salmeterol 50 mcg/dose blister 1 inh inhalation RBID 30 days #60 01/05/22 powder for inhalation (Serevent ea Diskus) simethicone 80 mg chewable tablet 80 mg PO QIDWMHS PRN Abdominal 01/05/22 (Gas Relief (simethicone)) Distention #30 tabs insulin glargine 100 unit/mL 35 unit (0.35 mL) subcut BEDTIME 02/18/22 subcutaneous solution (Lantus #10 mL U-100 Insulin) gabapentin 300 mg capsule 300 mg PO BID 30 days #60 caps 04/03/22 prednisone 10 mg tablet See Taper PO DIRECTED #30 tabs 04/11/22 diclofenac potassium 50 mg tablet 50 mg PO BID 30 days #60 tabs 05/08/22 theophylline 450 mg 450 mg PO Q12H 30 days #60 tabs 05/08/22 tablet,extended release,12 hr Allergies Allergy/AdvReac Type Severity Reaction Status Date / Time No Known Allergies Allergy Verified 05/08/22 11:38 [No Known Allergies*] Review of Systems Review of Systems: Yes all other systems are reviewed and are negative PMFSH Past Medical History Medical History Abdominal pain Abnormal chest x-ray Acute respiratory failure Aspiration into airway Asthma-COPD overlap syndrome Cellulitis Chronic constipation Chronic respiratory failure Chronic respiratory failure Congestive heart failure COPD (chronic obstructive pulmonary disease) COPD exacerbation COPD mixed type Cor pulmonale Diabetes mellitus Essential hypertension Hyperlipidemia, unspecified Hypertensive cardiovascular disease Hypogammaglobulinemia Leukocytosis Limb swelling Morbid obesity Opioid dependence Poor dentition Pulmonary congestion Pulmonary nodule Rib fractures Status asthmaticus with COPD (chronic obstructive pulmonary disease) Tobacco abuse Type 2 diabetes mellitus Type 2 diabetes mellitus with unspecified complications Vomiting Surgical History H/O tubal ligation Family History Family History Father Diabetes Other Asthma Social History Social History Household Members: Other Household Members Other:: daughter Housing: Apartment Do you presently have visiting nurse or 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) Unable to assess alcohol history related to: Unknown Alcohol intake: never Patient Tobacco Use Status: Former Tobacco user Quit Date: last admission January 2022 Tobacco use type: Cigarette Cigarettes Per Day: 1 Years Smoked: 35 Smoked in Last 30 Days: No e-Cigarette/Vaping Use: Currently Using Second Hand Smoke Exposure: No Use of substances other than those prescribed or required for medical reasons: No Substance Use Type: Opiates Advance Directives: Yes Advance Directives on File: Yes Advance Directives Date on File: 06/12/21 Patient : No service: No Current occupational status: disabled Physical Exam Vital Signs: Vital Signs: Last Vital Signs Temp 98.3 F 05/14/22 00:18 Pulse 106 H 05/14/22 00:18 Resp 19 05/14/22 00:18 BP 137/66 05/14/22 00:18 Pulse Ox 94 05/14/22 00:18 O2 Del Method 05/14/22 00:18 O2 Flow Rate 3 05/14/22 00:18 Oxygen Flow Rate 2.5 05/13/22 20:53 BMI result Body Mass Index 37.8 Appearance: Alert. Oriented X3. No acute distress. Eyes: PERRLA, No Nystagmus ENT: Pharynx normal. Oral Mucosa moist Neck: Normal inspection. Neck supple. CVS: Normal heart rate and rhythm. Pulses normal. Respiratory: No respiratory distress. Equal air entry bilateral, bilateral wheezing with prolonged expiration Abdomen: Soft and nontender. Bowel sounds are present, no mass palpable, no CVA tenderness Skin: Skin warm and dry. Normal skin color. Normal skin turgor. Extremities: No lower extremity edema. No calf tenderness Neuro: Oriented X 3. No motor deficit. No sensory deficit.No cerebellar signs , cranial nerves II-XII intact Medications Administered Discontinued Medications Generic Name Dose Route Start Last Admin Trade Name Yaoq PRN Reason Stop Dose Admin Acetaminophen/Butalbital/Caffeine 1 tab 05/13/22 23:42 05/14/22 00:42 Butalb/Acetamin/Caff 50/325/40 Tablet PO 05/13/22 23:43 1 tab ONCE ONE Administration Albuterol Sulfate 5 mg 05/13/22 23:42 05/13/22 23:46 Albuterol Sulfate (0.083%) 2.5 Mg/3 Ml Vial.Neb INHALE 05/13/22 23:43 5 mg ONCE ONE Administration Albuterol Sulfate 2.5 mg/ 0 mg 05/13/22 21:25 05/13/22 21:40 Ipratropium [place] 0.5 mg INHALE 05/13/22 21:26 1 each ONCE ONE Administration Dexamethasone 10 mg 05/13/22 21:25 05/13/22 22:04 Dexamethasone 2 Mg Tablet PO 05/13/22 21:26 10 mg ONCE ONE Administration Medical Decision Making Medical Decision Making [facility] Narrative: Patient feeling much better after few days nebulizing treatment saturating 94% on 3 L nasal cannula will discharge patient home advised to continue her treatments and nebulizing treatment Lab Data [facility] Lab Attestation statement: I reviewed the patient's lab results. 05/13/22 21:27 05/13/22 21:27 Labs: Lab Results 05/13/22 05/13/22 05/13/22 Range/Units 21: 21: 21: WBC 15.7 H (4.8-10.8) X10*3/uL RBC 4.04 L (4.20-5.50) X10*6/uL Hgb 10.9 L (12.0-16.0) g/dl Hct 35.6 L (37.0-47.0) % MCV 88.1 (80.0-98.0) fL MCH 27.0 (27.0-33.0) pg MCHC 30.6 L (31.0-35.0) g/dl RDW 15.4 (11.0-16.0) % Plt Count 252 D (160-400) X10*3/uL MPV 8.7 L (9.4-12.3) fL Immature Gran % (Auto) 0.4 (0.0-0.4) % Neut % (Auto) 88.5 H (45-73) % Lymph % (Auto) 3.9 L (20-40) % [place] % (Auto) 6.5 (2-11) % Eos % (Auto) 0.4 (0-4) % Baso % (Auto) 0.3 (0-2) % Lymph # (Auto) 0.6 L (1.2-4.9) X10*3/uL [place] # (Auto) 1.0 (0.1-1.2) X10*3/uL Eos # (Auto) 0.1 (0.0-0.4) X10*3/uL Baso # (Auto) 0.1 (0.0-0.2) X10*3/uL Abs Immat Gran (auto) 0.06 H (0.00-0.03) X10*3/uL Absolute Neuts (auto) 13.9 H (2.0-8.3) x10*3/uL Absolute Nucleated RBC 0.000 (0.0-0.012) X10*3/uL Nucleated RBC % (auto) 0.0 (0.0-0.2) /100WBC Sodium 141 (135-145) mmol/L Potassium 4.3 (3.3-5.1) mmol/L Chloride 99 (96-108) mmol/L Carbon Dioxide 35 H (22-29) mmol/L Anion Gap 11 L (12-20) BUN 17 H (9-16) mg/dL Creatinine 0.57 (0.5-1.4) mg/dL Estim Creat Clear Calc 118.4 Estimated GFR > 60 Random Glucose 75 (60-115) mg/dL Calcium 8.9 D (8.4-10.2) mg/dL Troponin I High Sens 10.6 D (<3.5-17.0) ng/L Discharge Plan Discharge Clinical Impression: COPD (chronic obstructive pulmonary disease) Patient Disposition: Home, Self-Care Instructions: COPD (Chronic Obstructive Pulmonary Disease) (ED) Additional Instructions: Continue medication including prednisone and nebulizing treatment every 4-6 hours at home Follow-up with sales agent protective service Prescriptions: No Action Spiriva with HandiHaler 18 mcg capsule, w/inhalation device 1 cap inhalation DAILY Qty: 30 11RF ipratropium-albuterol 0.5 mg-3 mg(2.5 mg base)/3 mL solution for nebulization 3 ml PO Q4H PRN (Reason: for wheezing) Qty: 540 6RF gabapentin 300 mg capsule 300 mg PO BID 30 Days Qty: 60 3RF diltiazem HCl [Tiadylt ER] 360 mg capsule,extended release 24 hr 360 mg PO DAILY rosuvastatin 5 mg tablet 5 mg PO BEDTIME roflumilast [Daliresp] 500 mcg tablet 500 mcg PO DAILY insulin lispro [Humalog U-100 Insulin] 100 unit/mL solution See Protocol subcut TIDAC Protocol: Insulin Correction Scale Less than or equal to 110 ---- Give (units): 0 111 to 150 Give (units): 0 151 to 200 Give (units): 2 201 to 250 Give (units): 4 251 to 300 Give (units): 6 301 to 350 Give (units): 8 Greater than 350 Give (units): 10 Call MD if Blood Glucose > : 350 metformin 500 mg tablet extended release 24 hr 1,000 mg PO BID hydralazine 25 mg tablet 25 mg PO TID insulin lispro 100 unit/mL solution 4 unit subcut TIDAC omeprazole 40 mg capsule,delayed release(DR/EC) 40 mg PO DAILY@0630 insulin glargine [Lantus U-100 Insulin] 100 unit/mL solution 35 unit subcut BEDTIME Qty: 10 0RF methadone 10 mg/mL Concentrate 50 mg PO DAILY ergocalciferol (vitamin D2) 1,250 mcg (50,000 unit) capsule 1,250 mcg PO QWEEK lisinopril 40 mg tablet 40 mg PO DAILY Serevent Diskus 50 mcg/dose Blister With Device 1 inh inhalation RBID 30 Days Qty: 60 2RF simethicone [Gas Relief (simethicone)] 80 mg Tablet,Chewable 80 mg PO QIDWMHS PRN (Reason: Abdominal Distention) Qty: 30 0RF prednisone 10 mg tablet See Taper PO DIRECTED Qty: 30 0RF Taper: Prednisone 40 mg daily for 3 Days and 0 Hour 30 mg daily for 3 Days and 0 Hour 20 mg daily for 3 Days and 0 Hour 10 mg daily for 3 Days and 0 Hour Rx Instructions: see taper instructions montelukast 10 mg tablet 10 mg PO BEDTIME albuterol sulfate [ProAir HFA] 90 mcg/actuation HFA aerosol inhaler 2 puff inhalation Q4H PRN (Reason: Shortness Of Breath Or Wheezing) loratadine [Claritin] 10 mg tablet 10 mg PO DAILY Brovana 15 mcg/2 mL solution for nebulization 2 ml inhalation Q12H 30 Days Qty: 120 11RF budesonide 0.5 mg/2 mL suspension for nebulization 0.5 mg inhalation BID Qty: 120 11RF bupropion HCl 75 mg tablet 150 mg PO BID 30 Days Qty: 120 3RF diclofenac potassium 50 mg tablet 50 mg PO BID 30 Days Qty: 60 0RF theophylline 450 mg tablet extended release 12 hr 450 mg PO Q12H 30 Days Qty: 60 6RF Interventions: ED Discharge Assessment Last Done: 05/14/22 01:20 Discharge Date/Time: 05/14/22 01:20
[2022-05-13 21:31] LABS: MANUAL DIFF FLAG NO
[2022-05-13 21:34] LABS: Basophils Absolute Auto 0.1 X10*3/uL (0.0-0.2); Basophils Percent Auto 0.3 % (0-2); Eosinophils Absolute Auto 0.1 X10*3/uL (0.0-0.4); Eosinophils Percent Auto 0.4 % (0-4); Hematocrit 35.6 % (37.0-47.0); Hemoglobin 10.9 g/dl (12.0-16.0); Imm Gran Abs Auto 0.06 X10*3/uL (0.00-0.03); Imm Gran Pct Auto 0.4 % (0.0-0.4); Lymphocytes Absolute Auto 0.6 X10*3/uL (1.2-4.9); Lymphocytes Percent Auto 3.9 % (20-40); Mean Corpuscular HGB Conc 30.6 g/dl (31.0-35.0); Mean Corpuscular Volume 88.1 fL (80.0-98.0); Mean Platelet Volume 8.7 fL (9.4-12.3); Monocytes Percent Auto 6.5 % (2-11); Neutrophils Absolute Auto 13.9 x10*3/uL (2.0-8.3); Neutrophils Percent Auto 88.5 % (45-73); Platelet Count 252 X10*3/uL (160-400); Red Blood Count 4.04 X10*6/uL (4.20-5.50); Red Cell Distribution Width 15.4 % (11.0-16.0); White Blood Count 15.7 X10*3/uL (4.8-10.8)
[2022-05-13 21:41] VITALS: PULSE 92; RESP 16; O2SAT 96
[2022-05-13 21:47] LABS: Anion Gap 11 (12-20); Blood Urea Nitrogen 17 mg/dL (9-16); Calcium 8.9 mg/dL (8.4-10.2); Carbon Dioxide 35 mmol/L (22-29); Chloride 99 mmol/L (96-108); Creatinine Clr Calc Pharmacy 118.4; Estimated Glomerular Filt Rate > 60; Glucose Random 75 mg/dL (60-115); Potassium 4.3 mmol/L (3.3-5.1); Sodium 141 mmol/L (135-145)
[2022-05-13 21:53] LABS: Troponin-I High Sensitivity 10.6 ng/L (<3.5-17.0)
[2022-05-13] MEDS: dexAMETHasone 2 MG TABLET 10 MG PO (22:04)
[2022-05-13] MEDS: Albuterol Sulfate (0.083%) 2.5 MG/3 ML VIAL.NEB 5 MG INHALE (23:46)
[2022-05-14 00:18] VITALS: BP 137/66; PULSE 106; RESP 19; TEMP 36.8; O2SAT 94
[2022-05-14] MEDS: Butalb/Acetamin/Caff 50/325/40 TABLET 1 TAB PO (00:42)
== END 2022-05-14 01:20 | disposition home or self-care (01) ==
PROVIDERS: Emergency Provider Internal Medicine; PCP Family Medicine
DX: J44.9 Chronic obstructive pulmonary disease, unspecified (principal); E11.9 Type 2 diabetes mellitus without complications; I10 Essential (primary) hypertension; E78.5 Hyperlipidemia, unspecified; J96.91 Respiratory failure, unspecified with hypoxia; F11.20 Opioid dependence, uncomplicated; Z87.891 Personal history of nicotine dependence; Z99.81 Dependence on supplemental oxygen; Z79.02 Long term (current) use of antithrombotics/antiplatelets; Z79.899 Other long term (current) drug therapy; Z79.4 Long term (current) use of insulin
CPT/HCPCS: 36415; 71045; 80048; 84484; 85025; 93005; 94640; 99284; 99285; J8540

== ENCOUNTER 2022-05-27 10:06 | Outpatient (REF) | payer MEDICAID, SELFPAY ==
--- NOTE | ~2022-05-27 | XR_ITS ---
EXAMINATION: XR CERVICAL SPINE CLINICAL INFORMATION: Chronic cervical pain. COMPARISON: None TECHNIQUE: Cervical spine is imaged in 6 views including bilateral oblique projections. FINDINGS: There is rightward tilting cervical spine with mild levocurvature cervical thoracic junction. The cervical lordosis appears normal. The vertebral bodies are normal in height. There is no cervical vertebral compression or destructive process or prevertebral soft tissue swelling. The odontoid appears intact. There is borderline disc narrowing C4-C5. Mild anterior vertebral spurring C3, C4, and C5. There is borderline grade 0-1 spondylolisthesis at C3-C4. No perched facet. Oblique view show no definite osseous narrowing of the neural foramina. XR/XR cervical spine 5V IMPRESSION: -Rightward tilting cervical spine with mild levocurvature cervical thoracic junction. -Mild grade 0-1 spondylolisthesis C3-C4. -Borderline disc narrowing C4-C5.
[2022-05-27 10:52] LABS: MANUAL DIFF FLAG NO
[2022-05-27 10:55] LABS: Venous Blood Gas Refer to POC result
[2022-05-27 10:57] LABS: VBG Base Excess 12.2 mmol/L; VBG HCO3 40 mmol/L (22-26); VBG pCO2 69 mmHg; VBG pH 7.37 (7.32-7.43); VBG pO2 67 mmHg
[2022-05-27 11:23] LABS: Basophils Absolute Auto 0.1 X10*3/uL (0.0-0.2); Basophils Percent Auto 0.3 % (0-2); Eosinophils Absolute Auto 0.1 X10*3/uL (0.0-0.4); Eosinophils Percent Auto 0.6 % (0-4); Hematocrit 37.6 % (37.0-47.0); Hemoglobin 11.2 g/dl (12.0-16.0); Imm Gran Abs Auto 0.16 X10*3/uL (0.00-0.03); Imm Gran Pct Auto 0.9 % (0.0-0.4); Lymphocytes Percent Auto 5.8 % (20-40); Mean Corpuscular HGB Conc 29.8 g/dl (31.0-35.0); Mean Corpuscular Hemoglobin 27.3 pg (27.0-33.0); Mean Corpuscular Volume 91.7 fL (80.0-98.0); Monocytes Absolute Auto 0.7 X10*3/uL (0.1-1.2); Monocytes Percent Auto 3.8 % (2-11); Neutrophils Absolute Auto 15.7 x10*3/uL (2.0-8.3); Neutrophils Percent Auto 88.6 % (45-73); Platelet Count 313 X10*3/uL (160-400); Red Cell Distribution Width 16.8 % (11.0-16.0); White Blood Count 17.7 X10*3/uL (4.8-10.8)
[2022-05-27 23:09] LABS: Theophylline < 0.8 MG/L ((10-20))
[2022-05-28 20:44] LABS: Immunoglobulin E 9 kU/L (<OR=114)
[2022-05-29 14:33] LABS: Immunoglobulin G Subclass 1 482 mg/dL (382-929); Immunoglobulin G Subclass 2 261 mg/dL (241-700); Immunoglobulin G Subclass 3 51 mg/dL (22-178); Immunoglobulin G Subclass 4 27.9 mg/dL (4-86); Immunoglobulin G Total 855 mg/dL (600-1640)
== END 2022-05-27 10:07 | disposition home or self-care (01) ==
LOC: HO.XRAY 10:06
PROVIDERS: Absent Provider Physician Assistant Medical; PCP Family Medicine; Visit Provider Hospitalist
DX: J44.0 Chronic obstructive pulmonary disease with (acute) lower respiratory infection (principal); J96.12 Chronic respiratory failure with hypercapnia; J96.11 Chronic respiratory failure with hypoxia; M54.2 Cervicalgia; D80.1 Nonfamilial hypogammaglobulinemia; R91.1 Solitary pulmonary nodule; R07.81 Pleurodynia; F17.210 Nicotine dependence, cigarettes, uncomplicated; Z99.81 Dependence on supplemental oxygen
CPT/HCPCS: 36415; 72050; 80198; 82784; 82785; 82803; 85025; 99212

== ENCOUNTER 2022-06-04 09:45 | Outpatient (REF) | payer MEDICAID, SELFPAY ==
[2022-06-04 11:52] LABS: Calcium 9.8 mg/dL (8.4-10.2)
[2022-06-04 12:05] LABS: Vitamin D 25-OH Total 14.6 ng/mL (>30)
[2022-06-05 14:24] LABS: Calcium (PTHI) 10.2 mg/dL (8.6-10.4); PTHI 39 pg/mL (16-77)
[2022-06-10 23:49] LABS: Alkaline Phosphatase Bone 15.9 mcg/L (5.6-29.0)
== END 2022-06-04 09:46 | disposition home or self-care (01) ==
LOC: HO.LAB 09:45
PROVIDERS: PCP Family Medicine; Visit Provider Obstetrics & Gynecology Reproductive Endocrinology
DX: T50.905A Adverse effect of unspecified drugs, medicaments and biological substances, initial encounter (principal); X58.XXXA Exposure to other specified factors, initial encounter; Y93.9 Activity, unspecified; Y92.9 Unspecified place or not applicable; Y99.9 Unspecified external cause status
CPT/HCPCS: 82306; 82310; 83970; 84075

== ENCOUNTER 2022-06-10 09:16 | Outpatient (REF) | payer MEDICAID, SELFPAY ==
--- NOTE | ~2022-06-10 | CT_ITS ---
EXAMINATION: CT CHEST WITHOUT CONTRAST CLINICAL INFORMATION: Chest wall pain COMPARISON: Previous chest x-ray most recent April [address] October 2021 TECHNIQUE: Multidetector volumetric CT imaging of the chest was done. Axial MIP volume rendering provided. Sagittal and coronal reformatted images were obtained. This CT examination was performed using dose optimization techniques as appropriate, variously including the following: *Automated exposure control *Adjustment of mA and/or kV according to patient size (this includes techniques or standardized protocols for targeted exams where dose is matched to indication/reason for exam; i.e. 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 3 mm left lower lobe nodule axial image 120 series 8. This is new from previous chest CT scan. The lungs are otherwise clear. MEDIASTINUM: The mediastinum is normal. CORONARY ARTERY CALCIFICATION: Mild PLEURA: There is no pleural effusion. No pleural mass or thickening. AXILLA: No lymphadenopathy. UPPER ABDOMEN: Unremarkable. OSSEOUS STRUCTURES: Multiple bilateral rib fractures of varying ages. Most rib fractures appear old and unchanged from prior exam October 2021. There is a healing fracture of the left anterior lateral seventh rib that is new in the interval from 2021. Degenerative changes of the spine. Multiple old appearing mid thoracic and upper lumbar vertebral body compression fractures. CT/CT chest wo IV con IMPRESSION: Multiple bilateral old-appearing rib fractures similar to October 2021 exam. Healing left anterior lateral seventh rib fracture new in the interval from October [address] Degenerative changes of the spine and multiple old mid thoracic and upper lumbar vertebral body compression fractures. Mild emphysema. New 3 mm left lower lobe nodule. According to the UPDATED 2017 Fleischner Society recommendations, the advised follow-up imaging for less than 6 mm solid nodule: Low risk, no chest CT follow-up and high risk, optional chest CT follow-up in one Fleischner guidelines were followed.
== END 2022-06-10 09:17 | disposition home or self-care (01) ==
LOC: HO.CT 09:16
PROVIDERS: Visit Provider Hospitalist
DX: R91.1 Solitary pulmonary nodule (principal); R07.81 Pleurodynia; J44.9 Chronic obstructive pulmonary disease, unspecified
CPT/HCPCS: 71250

== ENCOUNTER 2022-06-10 09:35 | Outpatient (REF) | payer MEDICAID, SELFPAY | END 2022-06-10 09:36 | disposition home or self-care (01) | LOC: HO.MDS 09:35 | PROVIDERS: Visit Provider Hospitalist | DX: D80.1 Nonfamilial hypogammaglobulinemia (principal) | CPT/HCPCS: 96365; 96366; J1569 ==

== ENCOUNTER 2022-06-17 10:03 | Outpatient (REF) | payer MEDICAID, SELFPAY ==
--- NOTE | ~2022-06-17 | MR_ITS ---
EXAMINATION: MR LUMBAR SPINE WITHOUT CONTRAST CLINICAL INFORMATION: Compression fracture COMPARISON: Chest CT 06/10/2022 and lumbar spine radiographs 11/05/2018 TECHNIQUE: MRI of the lumbar spine was obtained using routine sequences without contrast. FINDINGS: There are diffuse chronic compression fractures spanning T12-L5 predominantly along the superior endplates, most pronounced at L1 and L2 where there is 63 and 72% height loss, respectively. There is otherwise mild associated height loss/wedging. There are chronic Schmorl's nodes along the L1 and L2 superior and L2 inferior endplates. There is minimal posterior bony retropulsion, most pronounced at L3. Since chest CT from June 10, 2022, stable height loss at T12 and L1 allowing for differences across imaging modalities, and the L2 superior endplate compression fracture with associated height loss was partially imaged at this time. Since more remote lumbar spine radiographs from 11/05/2018, the L3 and L5 compression fractures are new and the L4 fracture demonstrates probably stable height loss, allowing for differences in imaging modalities. There is multilevel vacuum disc phenomenon. 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 Diffuse heterogeneity of the bone marrow likely reflecting a combination of osteopenia and mixed type I/II Modic endplate changes, with type I Modic endplate changes most pronounced at L2-L3. Straightening of the lumbar lordosis. Grade 1 retrolisthesis of L4 and L5 and trace retrolisthesis of L5 on S1. There is no suspicious osseous lesion. There is diffuse disc desiccation with severe L5-S1 disc height loss. Multilevel anterior osteophytic spurring is seen. Multilevel degenerative changes with level by level detail as follows: T9-T10: Excluded from the [id number] in axial plane, however diffuse annular disc bulge with superimposed left paracentral/subarticular disc protrusion with mild spinal canal stenosis and contact along the ventral cord. The neural foramina are partially excluded from the [id number] in the sagittal plane. T10-T11: Excluded from the [id number] in axial plane, however annular disc bulge with right foraminal disc protrusion/disc osteophyte. Mild spinal canal narrowing with mild bilateral neural foraminal encroachment. T11-T12: Annular disc bulge with mild facet arthrosis. Mild spinal canal and mild bilateral neural foraminal encroachment. T12-L1: Trace annular disc bulge with mild bilateral facet hypertrophy and ligamentum flavum thickening, but no spinal canal or neural foraminal stenosis. L1-L2: Trace annular disc bulge with mild bilateral facet hypertrophy and ligamentum flavum thickening. No spinal canal or neural foraminal stenosis. L2-L3: Trace annular disc bulge/minimal retropulsion of the L3 superior endplate with mild bilateral facet hypertrophy/ligamentum flavum thickening. Mild spinal canal stenosis with encroachment upon the traversing right L3 nerve root in the subarticular zone. Mild right greater than left neural foraminal encroachment. L3-L4: Annular disc bulge with bilateral foraminal/far lateral disc protrusions and mild to moderate facet arthrosis with ligamentum flavum thickening and small left greater than right facet joint effusions. Minimal retropulsion of the L4 superior endplate. Moderate to severe spinal canal stenosis with mass effect along the traversing L4 nerve roots. Moderate bilateral neural foraminal stenosis with mass effect along the exiting/extraforaminal L3 nerve roots. L4-L5: Disc osteophyte complex with superimposed broad-based central disc protrusion and mild to moderate facet hypertrophy and ligamentum flavum thickening. Severe spinal canal stenosis with compression along the traversing and cauda equina nerve roots. Mild neural foraminal encroachment bilaterally. L5-S1: Disc osteophyte complex with broad-based central disc protrusion/inferiorly migrated extrusion eccentric to the left and left foraminal disc protrusion. Moderate facet arthrosis and ligamentum flavum thickening. No overt spinal canal stenosis, noting subarticular zone narrowing and encroachment upon the traversing left greater than right L5 nerve roots. Severe left neural foraminal stenosis with compression of the exiting left L5 nerve root and moderate to severe right neural foraminal stenosis with lesser compression of the exiting right L5 nerve root. The conus medullaris terminates at the level of L1-L2. The distal spinal cord is normal in appearance. . No epidural fluid collection, hematoma, or mass. There is mild fatty infiltration of the paraspinal musculature. Limited evaluation of the intra-abdominal structures without significant abnormalities. The abdominal aorta is of normal contour and caliber. MR/MR lumbar spine wo con IMPRESSION: 1. Chronic compression fractures spanning T12-L5, most pronounced at L1 and L2 where there is 63 and 72% height loss, respectively, with otherwise multilevel mild height loss/wedging. Since chest CT 06/10/2022, stable height loss at T12 and L1 and partially imaged L2 superior endplate compression fracture. Since more remote lumbar spine radiographs 11/05/2018, L3 and L5 compression fractures are new and the L4 fracture demonstrates probably stable height loss. 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 2. Multilevel lumbar spondylosis as described, worst at L4-L5 where there is severe spinal canal stenosis with compression along the traversing and cauda equina nerve roots. 3. At L3-L4, there is moderate to severe spinal canal stenosis with mass effect along the traversing L4 nerve roots and moderate bilateral neural foraminal stenosis with mass effect along the exiting/extraforaminal L3 nerve roots bilaterally. 4. At L5-S1, there is severe left and moderate to severe right neural foraminal stenosis with compression of the exiting left greater than right L5 nerve roots.
== END 2022-06-17 10:04 | disposition home or self-care (01) ==
LOC: HO.MRI 10:03
PROVIDERS: PCP Family Medicine; Visit Provider Physician Assistant Medical
DX: S32.000A Wedge compression fracture of unspecified lumbar vertebra, initial encounter for closed fracture (principal); X58.XXXA Exposure to other specified factors, initial encounter; Y93.9 Activity, unspecified; Y92.9 Unspecified place or not applicable; Y99.9 Unspecified external cause status
CPT/HCPCS: 72148

== ENCOUNTER 2022-06-28 18:24 | Inpatient (IN) | payer MEDICAID, SELFPAY ==
--- NOTE | ~2022-06-28 | CT_ITS ---
EXAMINATION: CT ABDOMEN AND PELVIS WITH CONTRAST CLINICAL INFORMATION: Epigastric and upper abdominal COMPARISON: 06/28/2022 TECHNIQUE: Multidetector volumetric images were obtained from the superior aspect of the liver through the pubic symphysis following administration 85 mL of Omnipaque 350 intravenous contrast. Sagittal and coronal reformatted images were obtained on the technologist's workstation. Oral contrast: No This CT examination was performed using dose optimization techniques as appropriate, variously including the following: *Automated exposure control *Adjustment of mA and/or kV according to patient size (this includes techniques or standardized protocols for targeted exams where dose is matched to indication/reason for exam; i.e. extremities or head) *Use of iterative reconstruction technique DLP: 649 mGy-cm FINDINGS: LUNG BASES: The visualized lung bases are unremarkable. LIVER, GALLBLADDER, AND BILIARY TREE: The liver is normal in size, shape, and attenuation. No focal hepatic lesion or biliary ductal dilatation is present. The gallbladder is unremarkable with no evidence of radiopaque gallstones, gallbladder wall thickening, or obvious pericholecystic inflammatory changes. PANCREAS: Unremarkable. SPLEEN: Unremarkable. ADRENAL GLANDS: Unremarkable. KIDNEYS AND URETERS: The kidneys are normal in size, shape, and attenuation. No hydronephrosis, hydroureter, or calculi seen. No perinephric stranding. BLADDER: Unremarkable. GASTROINTESTINAL TRACT: Previously dilated loops of small bowel in the left side of the abdomen are unremarkable on the current study. Loops of colon are unremarkable. There is no ascites or stranding of mesentery. Normal appendix is visualized. ABDOMINAL WALL: There is diastases of the rectus muscle with mild abdominal bulge but no herniations.. LYMPH NODES: Normal. VASCULAR: Unremarkable. PELVIC VISCERA: Unremarkable. OSSEOUS STRUCTURES: Extensive degenerative changes of lumbar spine with compression deformities of superior endplate of L3, superior and inferior endplates of L2 and superior endplate of L1. Degenerative changes seen through the sacroiliac joints also with vacuum phenomenon. CT/CT abdomen pelvis w IV con IMPRESSION: 1. No explanation for abdominal pain. Normalization of small bowel loops caliber 2. Extensive degenerative changes of lumbar spine with compression deformities. 3. Diastases of rectus muscles. Fleischner guidelines were followed.
--- NOTE | ~2022-06-28 | CT_ITS ---
EXAMINATION: CT HEAD WITHOUT CONTRAST CLINICAL INFORMATION: Severe headache COMPARISON: None. TECHNIQUE: Contiguous axial imaging was performed from the skull base to vertex without intravenous contrast. This CT examination was performed using dose optimization techniques as appropriate, variously including the following: * Automated exposure control * Adjustment of mA and/or kV according to patient size (this includes techniques or standardized protocols for targeted exams where dose is matched to indication/reason for exam; i.e. extremities or head) Use of iterative reconstruction technique DLP: 648 mGy-cm. FINDINGS: There is no evidence of acute intracranial hemorrhage or territorial infarction. No abnormal mass effect or midline shift is seen. Tai to white matter differentiation is well preserved. No extra-axial fluid collections are identified. No hydrocephalus. No significant volume loss. There is no abnormal attenuation within the brain parenchyma. The osseous structures and soft tissues are normal. The mastoid air cells and visualized portions of the paranasal sinuses are well aerated. CT/CT head/brain wo IV con IMPRESSION: No acute intracranial pathology.
--- NOTE | ~2022-06-28 | CT_ITS ---
EXAMINATION: CT CHEST, ABDOMEN AND PELVIS WITH CONTRAST CLINICAL INFORMATION: Epigastric pain, nausea and vomiting with shortness of breath COMPARISON: CT chest 06/10/2022, CT chest abdomen pelvis 11/02/2021, CT abdomen pelvis 07/08/2019 TECHNIQUE: Multidetector volumetric imaging was performed from the thoracic inlet through the pubic symphysis following administration of 85 mL of Omnipaque 350. Sagittal and coronal reformatted images were obtained on the technologist's workstation. This CT examination was performed using dose optimization techniques as appropriate, variously including the following: *Automated exposure control *Adjustment of mA and/or kV according to patient size (this includes techniques or standardized protocols for targeted exams where dose is matched to indication/reason for exam; i.e. extremities or head) *Use of iterative reconstruction technique DLP: 1060 mGy-cm FINDINGS: CHEST: Lung: The lungs are clear without focal opacity or nodule. Mediastinum: The mediastinum is normal. The central vascular structures are unremarkable. No hilar or mediastinal lymphadenopathy. Coronary artery calcification is present. Pericardium/Pleura: No significant effusion. No pleural mass or thickening. Chest Wall/Axilla: Again seen are multiple rib fractures of various ages bilaterally. Findings are similar to the prior chest CT from 06/10/2022. Again noted are mild emphysematous changes No infiltrates or worrisome lung masses are seen. A tiny 2 mm nodule is present at each lung base (10:292 and 294). ABDOMEN/PELVIS: Peritoneal Space: No significant free air or free fluid identified. Liver, Gallbladder, Biliary Tree: The liver is normal in size, shape, and attenuation. No focal hepatic lesion or biliary ductal dilatation is present. The gallbladder is unremarkable with no evidence of radiopaque gallstones, gallbladder wall thickening, or obvious pericholecystic inflammatory changes. Pancreas: Unremarkable Spleen: Unremarkable Adrenal Glands: Unremarkable Kidneys and Ureters: The kidneys are normal in size, shape, and attenuation. No hydronephrosis, hydroureter, or calculi seen. No perinephric stranding. Bladder: Unremarkable Gastrointestinal Tract: There is a cluster of dilated small bowel loops seen in the left abdomen measuring up to 3.5 cm. On the prior CT scan from 07/08/2019, appearances were very similar however on the 11/02/2021 study, these loops were decompressed. A transition zone can be seen where loops become normal caliber (18:65 and 17:63). Perhaps there is a stricture in this area which becomes symptomatic/significant intermittently. The appendix is normal. The colon is unremarkable. Abdominal Wall: There is diastases of the rectus muscles above the umbilicus with moderate bulging. No abdominal wall hernias are seen. Lymph Nodes: No lymphadenopathy. Vascular: The aorta appears normal.. The IVC appears unremarkable. PELVIC VISCERA: The uterus and adnexa are unremarkable. OSSEUS STRUCTURES: Marked degenerative changes are present throughout the spine. Compression fractures are present involving the superior endplate of L3, superior and inferior endplates of L2 and the superior endplate of L1 CT/CT abdomen pelvis w IV con IMPRESSION: 1. There is a cluster of dilated small bowel loops in the left abdomen. On the prior CT scan from 07/08/2019, appearances were very similar however on the 11/02/2021 study, these were decompressed. Perhaps there is a stricture in this area which becomes symptomatic/significant intermittently. 2. No acute intrathoracic disease. 3. Other incidental findings as described above. Fleischner guidelines were followed.
--- NOTE | 2022-06-28 18:27 | ECG_ITS ---
Test Reason : SOB Blood Pressure : / mmHG Vent. Rate : 110 BPM Atrial Rate : 110 BPM P-R Int : 140 ms QRS Dur : 124 ms QT Int : 344 ms P-R-T Axes : 046 024 058 degrees QTc Int : 465 ms Sinus tachycardia Right bundle branch block Septal infarct , age undetermined Abnormal ECG When compared with ECG of 13-MAY-2022 20:55, No significant change was found Referred By: Isa Mahmood Electronically Signed By:TRISTAN CASTREJON MD
[2022-06-28 18:37] VITALS: BP 150/82
[2022-06-28 18:38] VITALS: BP 151/79; PULSE 113; RESP 22; TEMP 36.8; O2SAT 95; BMI 41.5
[2022-06-28 19:40] LABS: IDNOW Serial# 08D9AD1C
[2022-06-28 19:41] LABS: COVID-19 Test Negative (Negative)
--- NOTE | 2022-06-28 20:03 | ED_ITS ---
HPI - General Adult General Chief complaint: Nausea/Vomiting/Diarrhea Stated complaint: SOB, vomiting per EMS Time Seen by Provider: 06/28/22 19:59 Source: patient and EMS Mode of arrival: EMS Limitations: other History of Present Illness HPI narrative: 52-year-old female history of COPD diabetes, asthma, poor dentition, opiate dependence, hypogammaglobulinemia, CHF presenting to the emergency department with complaints of shortness of breath, nausea, vomiting, body aches and pains, abdominal pain since this morning. Patient tells me abdominal pain is mostly in the epigastric region, however she feels it just about everywhere, crampy, dull and constant. Reports she is vomiting bile constantly and is not able to keep anything down by mouth. Also reporting shortness of breath which has been worsening over the past few days worse with exertion. Reports severe diffuse headache which does not feel like her typical. Denies chest pain, fevers, chills, vision changes, dizziness and weakness. Related Data Home Medications Medication Instructions Recorded Confirmed albuterol sulfate 90 mcg/actuation 2 puff inhalation Q4H PRN 12/30/19 06/28/22 aerosol inhaler (ProAir HFA) Shortness Of Breath Or Wheezing loratadine 10 mg tablet (Claritin) 10 mg PO DAILY 12/30/19 06/28/22 montelukast 10 mg tablet 10 mg PO BEDTIME 12/30/19 06/28/22 diltiazem HCl 360 mg capsule,24 360 mg PO DAILY 11/16/20 06/28/22 hr,extended release (Tiadylt ER) roflumilast 500 mcg tablet 500 mcg PO DAILY 11/16/20 06/28/22 (Daliresp) rosuvastatin 5 mg tablet 5 mg PO BEDTIME 11/16/20 06/28/22 insulin lispro 100 unit/mL See Protocol subcut TIDAC 12/14/20 06/28/22 subcutaneous solution (Humalog U-100 Insulin) metformin 500 mg tablet,extended 1,000 mg PO BID 05/18/21 06/28/22 release 24 hr ergocalciferol (vitamin D2) 1,250 1,250 mcg PO QWEEK 06/06/21 06/28/22 mcg (50,000 unit) capsule methadone 10 mg/mL oral concentrate 50 mg PO DAILY 06/06/21 04/08/22 lisinopril 40 mg tablet 40 mg PO DAILY 07/30/21 06/28/22 hydralazine 25 mg tablet 25 mg PO TID 11/02/21 06/28/22 insulin lispro 100 unit/mL 4 unit subcut TIDAC 11/02/21 06/28/22 subcutaneous solution omeprazole 40 mg capsule,delayed 40 mg PO DAILY@0630 11/02/21 06/28/22 release clonazepam 1 mg tablet 1 mg PO BID PRN Anxiety 06/28/22 06/28/22 ibuprofen 600 mg tablet 600 mg PO Q8H 06/28/22 06/28/22 prednisone 10 mg tablet 30 mg PO DAILY 06/28/22 06/28/22 Previous Rx's Medication Instructions Recorded tiotropium bromide 18 mcg capsule 1 cap inhalation DAILY #30 ea 06/25/21 with inhalation device (Spiriva with HandiHaler) budesonide 0.5 mg/2 mL suspension 0.5 mg (2 mL) inhalation BID #120 07/24/21 for nebulization mL ipratropium 0.5 mg-albuterol 3 mg 3 ml PO Q4H PRN for wheezing #540 12/20/21 (2.5 mg base)/3 mL nebulization mL soln salmeterol 50 mcg/dose blister 1 inh inhalation RBID 30 days #60 01/05/22 powder for inhalation (Serevent ea Diskus) simethicone 80 mg chewable tablet 80 mg PO QIDWMHS PRN Abdominal 01/05/22 (Gas Relief (simethicone)) Distention #30 tabs insulin glargine 100 unit/mL 35 unit (0.35 mL) subcut BEDTIME 02/18/22 subcutaneous solution (Lantus #10 mL U-100 Insulin) gabapentin 300 mg capsule 300 mg PO BID 30 days #60 caps 04/03/22 theophylline 450 mg 450 mg PO Q12H 30 days #60 tabs 05/08/22 tablet,extended release,12 hr diclofenac potassium 50 mg tablet 50 mg PO BID 30 days #60 tabs 05/16/22 arformoterol 15 mcg/2 mL solution 2 ml inhalation Q12H 30 days #120 06/07/22 for nebulization (Brovana) mL Allergies Allergy/AdvReac Type Severity Reaction Status Date / Time No Known Allergies Allergy Verified 05/27/22 10:15 [No Known Allergies*] Review of Systems Review of Systems: Constitutional : No Weight loss, No Fever, No Chills, No Fatigue, No Malaise ENT/Mouth : No sore throat, No Rhinorrhea Eyes: No Eye Pain, No Swelling, No Redness Cardiovascular : No Chest Pain, + SOB, + Dyspnea on Exertion, No Orthopnea, No Edema, No Palpitations Respiratory : No Cough, No Sputum, No Wheezing Gastrointestinal : + Nausea, + Vomiting, No Diarrhea, No Constipation, + abdominal Pain, No Hematochezia, No Melena Genitourinary : No Dysuria, No Urinary Frequency, No Hematuria, Musculoskeletal : No joint pain, No Myalgias, No Joint Swelling Skin : No Skin Lesions, No rash Neuro : No Weakness, No Numbness, No Dizziness, No Headache Psych : No Anxiety/Panic, No Depression All other systems reviewed and are negative Yes all other systems are reviewed and are negative PMFSH Past Medical History Attestation statement: The following information was validated with the patient. Source: old records reviewed and nursing notes reviewed Medical History Abdominal pain Abnormal chest x-ray Acute respiratory failure Aspiration into airway Asthma-COPD overlap syndrome Cellulitis Chronic constipation Chronic respiratory failure Chronic respiratory failure Congestive heart failure COPD (chronic obstructive pulmonary disease) COPD exacerbation COPD mixed type Cor pulmonale Diabetes mellitus Essential hypertension Hyperlipidemia, unspecified Hypertensive cardiovascular disease Hypogammaglobulinemia Leukocytosis Limb swelling Morbid obesity Opioid dependence Poor dentition Pulmonary congestion Pulmonary nodule Rib fractures Status asthmaticus with COPD (chronic obstructive pulmonary disease) Tobacco abuse Type 2 diabetes mellitus Type 2 diabetes mellitus with unspecified complications Vomiting Surgical History H/O tubal ligation Family History Family History Father Diabetes Other Asthma Social History Social History Household Members: Other Household Members Other:: daughter Housing: Apartment Do you presently have visiting nurse or other home services: Yes ([employer]) Unable to assess alcohol history related to: Unknown Alcohol intake: never Patient Tobacco Use Status: Former Tobacco user Quit Date: last admission January 2022 Tobacco use type: Cigarette Cigarettes Per Day: 1 Years Smoked: 35 e-Cigarette/Vaping Use: Currently Using Second Hand Smoke Exposure: No Substance Use Type: Opiates Advance Directives: Yes Advance Directives on File: Yes Advance Directives Date on File: 06/12/21 service: No Current occupational status: disabled Physical Exam ED Vital Signs: Vital Signs - 24 hr 06/28/22 18:38 06/28/22 20:16 Temperature 98.3 F Pulse Rate 113 H 105 H Respiratory Rate 22 H 16 Blood Pressure 151/79 H Pulse Oximetry 95 Oxygen Delivery Method Nasal Cannula BMI result Body Mass Index 41.5 vss Appearance: Alert.? Oriented X3.? No acute distress.? Head: Normocephalic, atraumatic, no step-offs or deformities Eyes: Pupils equal, round and reactive to light.? ENT: Pharynx normal.? Neck: Normal inspection.? Neck supple.? CVS: Normal heart rate and rhythm.? Pulses normal.? Respiratory: No respiratory distress.? Breath sounds diminished b/l with expiratory wheezing Abdomen: Soft and + diffuse tenderness .? Skin: Skin warm and dry.? Normal skin color.? Normal skin turgor.? Extremities: No lower extremity edema.? No calf ttp. 5/5 strength to bilateral upper and lower extremities Back: No midline tenderness, no C-spine tenderness, full range of motion, no CVA tenderness bilaterally Neuro: Oriented X 3.? No motor deficit.? No sensory deficit. CN 2-12 intact Course Reevaluation(s) Reevaluation #1: CBC with elevated leukocytosis 25.8 deviating from patient's baseline, could be reactive secondary to nausea and vomiting. Chemistry with chronically elevated carbon dioxide, appears to be around patient's baseline. BUN slightly elevated to 20, likely secondary to nausea vomiting and dehydration. Time: 23:23 Reevaluation #2: Patient is still having nausea and vomiting and epigastric discomfort as well as significant shortness of breath. There is a cluster of dilated small bowel loops in the left abdomen. Concerning for stricture. No acute intrathoracic disease. I did discuss CT findings with Dr. Dsouza who recommends CT w/ oral contrast tomorrow to further evalate abd pain and possibility of stricture. Time: 23:23 Reevaluation #3: Patient is still having wheezing and difficulty breathing giving another DuoNeb and magnesium, Solu-Medrol. Medications Administered Discontinued Medications Generic Name Dose Route Start Last Admin Trade Name Jaylan PRN Reason Stop Dose Admin Albuterol/Ipratropium 3 ml 06/28/22 20:07 06/28/22 20:14 Albuterol/Iprat 2.5/0.5mg 3 Ml Ampul.Neb INHALE 06/28/22 20:08 3 ml ONCE ONE Administration Ceftriaxone Sodium 1 gm/ 50 mls @ 100 mls/hr 06/28/22 20:39 06/28/22 23:03 Sodium Chloride IV 06/28/22 21:08 100 mls/hr ONCE ONE Administration Iohexol 100 ml 06/28/22 21:48 06/28/22 21:49 Iohexol 350 Mg/Ml 100 Ml Infus..Btl IV 06/28/22 21:49 85 ml ONCE ONE Administration Morphine Sulfate 2 mg 06/28/22 22:05 06/28/22 23:03 Morphine Sulfate 2 Mg/Ml Cartridge IVPUSH 06/28/22 22:06 2 mg ONCE ONE Administration Protocol Ondansetron HCl 4 mg 06/28/22 20:05 06/28/22 20:22 Ondansetron Hcl 4 Mg/2 Ml Vial IVPUSH 06/28/22 20:06 4 mg ONCE ONE Administration Medical Decision Making Medical Decision Making [facility] Narrative: 2000 52-year-old female presents with shortness of breath, nausea, vomiting, abd ominal pain since this morning. Physical exam with diminished breath sounds bilaterally and expiratory wheezing. Diffusely tender abdomen worse in the epigastric region. Regular rate and rhythm. Neuro nonfocal. Concerns for viral illness. Also concern for chronic lung disease. Unlikely that this is pneumonia, PE. Other differentials include CHF. Plan labs, imaging, VBG, troponin EKG Differential Diagnosis Differential Diagnoses: The differential diagnosis associated with the presentation includes Concerns for viral illness. Also concern for chronic lung disease. Unlikely that this is pneumonia, PE. Other differentials include CHF. Admission/Observation Consideration of admission/observation: Escalation of care including admission/observation considered Lab Data [facility] Lab Attestation statement: I reviewed the patient's lab results. 06/28/22 20:08 06/28/22 20:08 Labs: Lab Results 06/28/22 06/28/22 06/28/22 Range/Units 19:21 20:08 20:08 WBC 25.8 H (4.8-10.8) X10*3/uL RBC 4.36 (4.20-5.50) X10*6/uL Hgb 12.4 (12.0-16.0) g/dl Hct 40.6 (37.0-47.0) % MCV 93.1 (80.0-98.0) fL MCH 28.4 (27.0-33.0) pg MCHC 30.5 L (31.0-35.0) g/dl RDW 15.1 (11.0-16.0) % Plt Count 343 (160-400) X10*3/uL MPV 9.0 L (9.4-12.3) fL Immature Gran % (Auto) 0.7 H (0.0-0.4) % Neut % (Auto) 86.3 H (45-73) % Lymph % (Auto) 5.9 L (20-40) % [place] % (Auto) 6.7 (2-11) % Eos % (Auto) 0.2 (0-4) % Baso % (Auto) 0.2 (0-2) % Lymph # (Auto) 1.5 (1.2-4.9) X10*3/uL [place] # (Auto) 1.7 H (0.1-1.2) X10*3/uL Eos # (Auto) 0.0 (0.0-0.4) X10*3/uL Baso # (Auto) 0.1 (0.0-0.2) X10*3/uL Abs Immat Gran (auto) 0.17 H (0.00-0.03) X10*3/uL Absolute Neuts (auto) 22.3 H (2.0-8.3) x10*3/uL Absolute Nucleated RBC 0.000 (0.0-0.012) X10*3/uL Nucleated RBC % (auto) 0.0 (0.0-0.2) /100WBC Smear Tech's Comments VERIFIED VBG pH (7.32-7.43) VBG pCO2 mmHg VBG pO2 mmHg VBG HCO3 (22-26) mmol/L VBG O2 Saturation % VBG Base Excess mmol/L Sodium 143 (135-145) mmol/L Potassium 3.8 (3.3-5.1) mmol/L Chloride 95 L (96-108) mmol/L Carbon Dioxide 37 H (22-29) mmol/L Anion Gap 15 (12-20) BUN 20 H (9-16) mg/dL Creatinine 0.60 (0.5-1.4) mg/dL Estim Creat Clear Calc 118.7 Estimated GFR > 60 Random Glucose 119 H (60-115) mg/dL Lactic Acid (0.5-2.0) mmol/L Calcium 9.7 (8.4-10.2) mg/dL Magnesium 2.0 (1.6-2.6) mg/dL Total Bilirubin 0.3 (0.0-1.0) mg/dL AST 18 (5-31) U/L ALT 18 (0-31) U/L Alkaline Phosphatase 67 (39-117) U/L Troponin I High Sens (<3.5-17.0) ng/L B-Natriuretic Peptide (<100) pg/mL Total Protein 7.1 (6.5-8.0) g/dL Albumin 4.3 (3.5-5.0) g/dL COVID-19 (PAPO) Negative (Negative) COVID-19 Clin Com See Note 06/28/22 06/28/22 06/28/22 Range/Units 20:08 20:08 20:11 WBC (4.8-10.8) X10*3/uL RBC (4.20-5.50) X10*6/uL Hgb (12.0-16.0) g/dl Hct (37.0-47.0) % MCV (80.0-98.0) fL MCH (27.0-33.0) pg MCHC (31.0-35.0) g/dl RDW (11.0-16.0) % Plt Count (160-400) X10*3/uL MPV (9.4-12.3) fL Immature Gran % (Auto) (0.0-0.4) % Neut % (Auto) (45-73) % Lymph % (Auto) (20-40) % [place] % (Auto) (2-11) % Eos % (Auto) (0-4) % Baso % (Auto) (0-2) % Lymph # (Auto) (1.2-4.9) X10*3/uL [place] # (Auto) (0.1-1.2) X10*3/uL Eos # (Auto) (0.0-0.4) X10*3/uL Baso # (Auto) (0.0-0.2) X10*3/uL Abs Immat Gran (auto) (0.00-0.03) X10*3/uL Absolute Neuts (auto) (2.0-8.3) x10*3/uL Absolute Nucleated RBC (0.0-0.012) X10*3/uL Nucleated RBC % (auto) (0.0-0.2) /100WBC Smear Tech's Comments VBG pH 7.46 H (7.32-7.43) VBG pCO2 64 mmHg VBG pO2 68 mmHg VBG HCO3 46 H (22-26) mmol/L VBG O2 Saturation 92.0 % VBG Base Excess 18.9 mmol/L Sodium (135-145) mmol/L Potassium (3.3-5.1) mmol/L Chloride (96-108) mmol/L Carbon Dioxide (22-29) mmol/L Anion Gap (12-20) BUN (9-16) mg/dL Creatinine (0.5-1.4) mg/dL Estim Creat Clear Calc Estimated GFR Random Glucose (60-115) mg/dL Lactic Acid (0.5-2.0) mmol/L Calcium (8.4-10.2) mg/dL Magnesium (1.6-2.6) mg/dL Total Bilirubin (0.0-1.0) mg/dL AST (5-31) U/L ALT (0-31) U/L Alkaline Phosphatase (39-117) U/L Troponin I High Sens 6.3 (<3.5-17.0) ng/L B-Natriuretic Peptide < 10 (<100) pg/mL Total Protein (6.5-8.0) g/dL Albumin (3.5-5.0) g/dL COVID-19 (PAPO) (Negative) COVID-19 Clin Com 04/14/23 Range/Units 21:07 WBC (4.8-10.8) X10*3/uL RBC (4.20-5.50) X10*6/uL Hgb (12.0-16.0) g/dl Hct (37.0-47.0) % MCV (80.0-98.0) fL MCH (27.0-33.0) pg MCHC (31.0-35.0) g/dl RDW (11.0-16.0) % Plt Count (160-400) X10*3/uL MPV (9.4-12.3) fL Immature Gran % (Auto) (0.0-0.4) % Neut % (Auto) (45-73) % Lymph % (Auto) (20-40) % [place] % (Auto) (2-11) % Eos % (Auto) (0-4) % Baso % (Auto) (0-2) % Lymph # (Auto) (1.2-4.9) X10*3/uL [place] # (Auto) (0.1-1.2) X10*3/uL Eos # (Auto) (0.0-0.4) X10*3/uL Baso # (Auto) (0.0-0.2) X10*3/uL Abs Immat Gran (auto) (0.00-0.03) X10*3/uL Absolute Neuts (auto) (2.0-8.3) x10*3/uL Absolute Nucleated RBC (0.0-0.012) X10*3/uL Nucleated RBC % (auto) (0.0-0.2) /100WBC Smear Tech's Comments VBG pH (7.32-7.43) VBG pCO2 mmHg VBG pO2 mmHg VBG HCO3 (22-26) mmol/L VBG O2 Saturation % VBG Base Excess mmol/L Sodium (135-145) mmol/L Potassium (3.3-5.1) mmol/L Chloride (96-108) mmol/L Carbon Dioxide (22-29) mmol/L Anion Gap (12-20) BUN (9-16) mg/dL Creatinine (0.5-1.4) mg/dL Estim Creat Clear Calc Estimated GFR Random Glucose (60-115) mg/dL Lactic Acid 1.3 (0.5-2.0) mmol/L Calcium (8.4-10.2) mg/dL Magnesium (1.6-2.6) mg/dL Total Bilirubin (0.0-1.0) mg/dL AST (5-31) U/L ALT (0-31) U/L Alkaline Phosphatase (39-117) U/L Troponin I High Sens (<3.5-17.0) ng/L B-Natriuretic Peptide (<100) pg/mL Total Protein (6.5-8.0) g/dL Albumin (3.5-5.0) g/dL COVID-19 (PAPO) (Negative) COVID-19 Clin Com Independent Interpretation I performed an independent interpretation of an: Plain X-Ray and CT Scan Radiology Impression Discussion of test interpretation with radiology: I have reviewed the radiologist's reading. External Record Review External record reviewed: Inpatient record, Office record, Outpatient record, Prior outpatient labs, Prior outpatient radiology, Primary care record and Outside ED record Core Measures AMI core measures followed: Yes Measure exclusions: not indicated Critical Care Time Critical Care Time Critical Care Time: No Discharge Plan Discharge Clinical Impression: COPD (chronic obstructive pulmonary disease), Stricture of bowel Patient Disposition: Admitted As Inpatient Prescriptions: No Action Spiriva with HandiHaler 18 mcg capsule, w/inhalation device 1 cap inhalation DAILY Qty: 30 11RF ipratropium-albuterol 0.5 mg-3 mg(2.5 mg base)/3 mL solution for nebulization 3 ml PO Q4H PRN (Reason: for wheezing) Qty: 540 6RF gabapentin 300 mg capsule 300 mg PO BID 30 Days Qty: 60 3RF diclofenac potassium 50 mg tablet 50 mg PO BID 30 Days Qty: 60 0RF Brovana 15 mcg/2 mL solution for nebulization 2 ml inhalation Q12H 30 Days Qty: 120 11RF diltiazem HCl [Tiadylt ER] 360 mg capsule,extended release 24 hr 360 mg PO DAILY rosuvastatin 5 mg tablet 5 mg PO BEDTIME roflumilast [Daliresp] 500 mcg tablet 500 mcg PO DAILY insulin lispro [Humalog U-100 Insulin] 100 unit/mL solution See Protocol subcut TIDAC Protocol: Insulin Correction Scale Less than or equal to 110 ---- Give (units): 0 111 to 150 Give (units): 0 151 to 200 Give (units): 2 201 to 250 Give (units): 4 251 to 300 Give (units): 6 301 to 350 Give (units): 8 Greater than 350 Give (units): 10 Call MD if Blood Glucose > : 350 metformin 500 mg tablet extended release 24 hr 1,000 mg PO BID hydralazine 25 mg tablet 25 mg PO TID insulin lispro 100 unit/mL solution 4 unit subcut TIDAC omeprazole 40 mg capsule,delayed release(DR/EC) 40 mg PO DAILY@0630 insulin glargine [Lantus U-100 Insulin] 100 unit/mL solution 35 unit subcut BEDTIME Qty: 10 0RF methadone 10 mg/mL Concentrate 50 mg PO DAILY ergocalciferol (vitamin D2) 1,250 mcg (50,000 unit) capsule 1,250 mcg PO QWEEK lisinopril 40 mg tablet 40 mg PO DAILY Serevent Diskus 50 mcg/dose Blister With Device 1 inh inhalation RBID 30 Days Qty: 60 2RF simethicone [Gas Relief (simethicone)] 80 mg Tablet,Chewable 80 mg PO QIDWMHS PRN (Reason: Abdominal Distention) Qty: 30 0RF clonazepam 1 mg tablet 1 mg PO BID PRN (Reason: Anxiety) ibuprofen 600 mg tablet 600 mg PO Q8H prednisone 10 mg tablet 30 mg PO DAILY montelukast 10 mg tablet 10 mg PO BEDTIME albuterol sulfate [ProAir HFA] 90 mcg/actuation HFA aerosol inhaler 2 puff inhalation Q4H PRN (Reason: Shortness Of Breath Or Wheezing) loratadine [Claritin] 10 mg tablet 10 mg PO DAILY budesonide 0.5 mg/2 mL suspension for nebulization 0.5 mg inhalation BID Qty: 120 11RF theophylline 450 mg tablet extended release 12 hr 450 mg PO Q12H 30 Days Qty: 60 6RF
[2022-06-28] MEDS: Albuterol/Iprat 2.5/0.5MG 3 ML AMPUL.NEB INHALE ×2 (20:14→23:41)
[2022-06-28 20:16] VITALS: PULSE 105; RESP 16; O2SAT 96
[2022-06-28 20:16] LABS: Basophils Absolute Auto 0.1 X10*3/uL (0.0-0.2); Basophils Percent Auto 0.2 % (0-2); Eosinophils Percent Auto 0.2 % (0-4); Hematocrit 40.6 % (37.0-47.0); Hemoglobin 12.4 g/dl (12.0-16.0); Imm Gran Abs Auto 0.17 X10*3/uL (0.00-0.03); Imm Gran Pct Auto 0.7 % (0.0-0.4); Lymphocytes Absolute Auto 1.5 X10*3/uL (1.2-4.9); Lymphocytes Percent Auto 5.9 % (20-40); MANUAL DIFF FLAG SCAN; Mean Corpuscular HGB Conc 30.5 g/dl (31.0-35.0); Mean Corpuscular Hemoglobin 28.4 pg (27.0-33.0); Mean Corpuscular Volume 93.1 fL (80.0-98.0); Monocytes Absolute Auto 1.7 X10*3/uL (0.1-1.2); Monocytes Percent Auto 6.7 % (2-11); Neutrophils Absolute Auto 22.3 x10*3/uL (2.0-8.3); Neutrophils Percent Auto 86.3 % (45-73); Platelet Count 343 X10*3/uL (160-400); Red Blood Count 4.36 X10*6/uL (4.20-5.50); Red Cell Distribution Width 15.1 % (11.0-16.0); SCAN SMEAR FLAG 1; White Blood Count 25.8 X10*3/uL (4.8-10.8)
[2022-06-28 20:20] LABS: VBG Base Excess 18.9 mmol/L; VBG HCO3 46 mmol/L (22-26); VBG pCO2 64 mmHg; VBG pH 7.46 (7.32-7.43); VBG pO2 68 mmHg
[2022-06-28] MEDS: ondansetron HCL 4 MG/2 ML VIAL IVPUSH (20:22)
[2022-06-28 20:23] LABS: Venous Blood Gas Refer to POC result
[2022-06-28 20:33] LABS: Alanine Aminotransferase 18 U/L (0-31); Albumin Level 4.3 g/dL (3.5-5.0); Alkaline Phosphatase 67 U/L (39-117); Anion Gap 15 (12-20); Aspartate Amino Transferase 18 U/L (5-31); Bilirubin Total 0.3 mg/dL (0.0-1.0); Blood Urea Nitrogen 20 mg/dL (9-16); Calcium 9.7 mg/dL (8.4-10.2); Carbon Dioxide 37 mmol/L (22-29); Chloride 95 mmol/L (96-108); Creatinine Clr Calc Pharmacy 118.7; Estimated Glomerular Filt Rate > 60; Glucose Random 119 mg/dL (60-115); Potassium 3.8 mmol/L (3.3-5.1); Sodium 143 mmol/L (135-145); Total Protein 7.1 g/dL (6.5-8.0)
[2022-06-28 20:40] LABS: Troponin-I High Sensitivity 6.3 ng/L (<3.5-17.0)
[2022-06-28 20:43] LABS: B Type Natriuretic Peptide < 10 pg/mL (<100)
[2022-06-28 20:50] LABS: SLIDE REVIEW VERIFIED
[2022-06-28 21:37] LABS: Lactic Acid 1.3 mmol/L (0.5-2.0)
[2022-06-28] MEDS: iohexoL 350 MG/ML 100 ML INFUS..BTL IV (21:49)
--- NOTE | 2022-06-28 21:50 | PC.NURSE ---
Delay in administering antibiotics due to delay in obtaining blood cultures due to difficult draw.
--- NOTE | 2022-06-28 22:27 | PHA.MEDREC ---
Pharmacy Consult ? Medication Reconciliation Pharmacy has completed the medication reconciliation. Used patients claim history and last discharge packet as patient does not know what she is on
[2022-06-28] MEDS: cefTRIAXone sodium 1 GM in 0.9 % Sodium Chloride 50 ML IV (23:03)
[2022-06-28] MEDS: Morphine Sulfate 2 MG/ML CARTRIDGE IVPUSH (23:03)
[2022-06-28 23:21] VITALS: BP 129/65; PULSE 116; RESP 17; O2SAT 91
[2022-06-28 23:29] LABS: Appearance Urine Clear; Color Urine Yellow; Glucose Urine UA Negative (Negative); Leukocyte Esterase Urine Negative (Negative); Nitrite Urine Negative (Negative); Specific Gravity - Urine >= 1.030 (1.005-1.025); Urine Blood Negative (Negative); Urine Ketones Negative (Negative); Urine Protein Trace mg/dL (Neg-Trace)
--- NOTE | 2022-06-28 23:33 | PM.IMHP ---
History of Present Illness Date of Service: 06/28/22 Chief Complaint: Nausea/vomiting This is 52-year-old female with pertinent history of chronic hypoxemic respiratory failure due to asthma-COPD overlap syndrome BiPAP dependent, insulin-dependent type 2 diabetes mellitus, essential hypertension, mood disorder, morbid obesity, history of opioid use who presents to the emergency department for evaluation of nausea/vomiting and dyspnea. Patient states her symptoms started this morning. Patient has been having epigastric discomfort, constant, nonradiating and without any relieving factors. It is associated with nausea and nonbloody emesis. Patient states she is not able to keep anything down. Patient also started having dyspnea, worse with exertion and associated wheezing. Has been having nonproductive cough. Patient has been compliant with her home BiPAP and supplemental oxygen. She is on baseline 2 to 2.5 L at home. Patient denies fever, chills, chest discomfort, palpitations, changes in urinary habits In the emergency department, imaging with questionable stricture and dilated small bowel loops Review of Systems Cardiovascular: Cardiovascular: Reports dyspnea on exertion Respiratory: Respiratory: Reports cough, Reports dyspnea on exertion and Reports wheezing Gastrointestinal: Gastrointestinal: Reports abdominal pain, Reports nausea and Reports vomiting Genitourinary: Genitourinary: Reports no additional female genitourinary complaints Musculoskeletal: Musculoskeletal: Reports no additional musculoskeletal complaints Allergic/Immunologic: Allergic/Immunologic: Reports wheezing PMFSH Medical History Abdominal pain Abnormal chest x-ray Acute respiratory failure Aspiration into airway Asthma-COPD overlap syndrome Cellulitis Chronic constipation Chronic respiratory failure Chronic respiratory failure Congestive heart failure COPD (chronic obstructive pulmonary disease) COPD exacerbation COPD mixed type Cor pulmonale Diabetes mellitus Essential hypertension Hyperlipidemia, unspecified Hypertensive cardiovascular disease Hypogammaglobulinemia Leukocytosis Limb swelling Morbid obesity Opioid dependence Poor dentition Pulmonary congestion Pulmonary nodule Rib fractures Status asthmaticus with COPD (chronic obstructive pulmonary disease) Tobacco abuse Type 2 diabetes mellitus Type 2 diabetes mellitus with unspecified complications Vomiting Family History Father Diabetes Other Asthma Surgical History H/O tubal ligation Social History Household Members: Other Household Members Other:: daughter Housing: Apartment Do you presently have visiting nurse or other home services: Yes ([employer]) Unable to assess alcohol history related to: Unknown Alcohol intake: never Patient Tobacco Use Status: Former Tobacco user Quit Date: last admission January 2022 Tobacco use type: Cigarette Cigarettes Per Day: 1 Years Smoked: 35 e-Cigarette/Vaping Use: Currently Using Second Hand Smoke Exposure: No Substance Use Type: Opiates Advance Directives: Yes Advance Directives on File: Yes Advance Directives Date on File: 06/12/21 Nutrition Risks: No Nutritional Risk service: No Current occupational status: disabled Meds Allergies Allergy/AdvReac Type Severity Reaction Status Date / Time No Known Allergies Allergy Verified 05/27/22 10:15 [No Known Allergies*] Active Medications: Current Medications Pharmacy Consult (Consult Rx Perform Med Rec) 1 each MISCELLANE ONCE PRN PRN Reason: Consult order Home Medications Medication Instructions Recorded Confirmed Last Taken Type albuterol sulfate 90 mcg/actuation 2 puff inhalation Q4H PRN 12/30/19 06/28/22 04/07/22 History aerosol inhaler (ProAir HFA) Shortness Of Breath Or Wheezing loratadine 10 mg tablet (Claritin) 10 mg PO DAILY 12/30/19 06/28/22 04/07/22 History montelukast 10 mg tablet 10 mg PO BEDTIME 12/30/19 06/28/22 04/06/22 History diltiazem HCl 360 mg capsule,24 360 mg PO DAILY 11/16/20 06/28/22 04/07/22 History hr,extended release (Tiadylt ER) roflumilast 500 mcg tablet 500 mcg PO DAILY 11/16/20 06/28/22 04/07/22 History (Daliresp) rosuvastatin 5 mg tablet 5 mg PO BEDTIME 11/16/20 06/28/22 04/06/22 History insulin lispro 100 unit/mL See Protocol subcut TIDAC 12/14/20 06/28/22 04/07/22 History subcutaneous solution (Humalog U-100 Insulin) metformin 500 mg tablet,extended 1,000 mg PO BID 05/18/21 06/28/22 04/07/22 History release 24 hr ergocalciferol (vitamin D2) 1,250 1,250 mcg PO QWEEK 06/06/21 06/28/22 Unknown History mcg (50,000 unit) capsule methadone 10 mg/mL oral concentrate 50 mg PO DAILY 06/06/21 04/08/22 04/07/22 History lisinopril 40 mg tablet 40 mg PO DAILY 07/30/21 06/28/22 04/07/22 History hydralazine 25 mg tablet 25 mg PO TID 11/02/21 06/28/22 04/07/22 History insulin lispro 100 unit/mL 4 unit subcut TIDAC 11/02/21 06/28/22 04/07/22 History subcutaneous solution omeprazole 40 mg capsule,delayed 40 mg PO DAILY@0630 11/02/21 06/28/22 04/07/22 History release clonazepam 1 mg tablet 1 mg PO BID PRN Anxiety 06/28/22 06/28/22 Unknown History ibuprofen 600 mg tablet 600 mg PO Q8H 06/28/22 06/28/22 Unknown History prednisone 10 mg tablet 30 mg PO DAILY 06/28/22 06/28/22 Unknown History Physical Exam Vital Signs and Narrative: Vital Signs: Last Vital Signs Temp 98.3 F 06/28/22 18:38 Pulse 116 H 06/28/22 23:21 Resp 17 06/28/22 23:21 BP 129/65 06/28/22 23:21 Pulse Ox 91 L 06/28/22 23:21 O2 Del Method Nasal Cannula 06/28/22 23:21 O2 Flow Rate 2 06/28/22 23:21 Oxygen Flow Rate 2 06/28/22 18:38 BMI result Body Mass Index 41.5 Middle-aged female lying in bed in mild distress on supplemental oxygen Neck supple, no JVD Regular rate and rhythm, S1-S2 heard Bilateral wheezing without crackles Abdomen distended with generalized tenderness, no guarding, no rebound tenderness, no rigidity Patient is awake, alert and oriented to self, place, time and person ; no focal motor deficit Psych: Normal mood No pedal edema Results Labs 06/28/22 20:08 06/28/22 20:08 Labs: Laboratory Results - last 24 hr 06/28/22 06/28/22 06/28/22 19:21 20:08 20:08 MCV 93.1 MCH 28.4 MCHC 30.5 L RDW 15.1 Plt Count 343 MPV 9.0 L Immature Gran % (Auto) 0.7 H Neut % (Auto) 86.3 H Lymph % (Auto) 5.9 L Osborne % (Auto) 6.7 Eos % (Auto) 0.2 Baso % (Auto) 0.2 Lymph # (Auto) 1.5 Osborne # (Auto) 1.7 H Eos # (Auto) 0.0 Baso # (Auto) 0.1 Abs Immat Gran (auto) 0.17 H Absolute Neuts (auto) 22.3 H Absolute Nucleated RBC 0.000 Nucleated RBC % (auto) 0.0 Smear Tech's Comments VERIFIED VBG pH VBG pCO2 VBG pO2 VBG HCO3 VBG O2 Saturation VBG Base Excess Anion Gap 15 Estim Creat Clear Calc 118.7 Estimated GFR > 60 Random Glucose 119 H Lactic Acid Calcium 9.7 Magnesium 2.0 Total Bilirubin 0.3 AST 18 ALT 18 Alkaline Phosphatase 67 Troponin I High Sens B-Natriuretic Peptide Total Protein 7.1 Albumin 4.3 Urine Color Urine Appearance Urine pH Ur Specific Thorndike Urine Protein Urine Glucose (UA) Urine Ketones Urine Blood Urine Nitrite Ur Leukocyte Esterase COVID-19 (PAPO) Negative COVID-[employer] (Astilbe) See Note 06/28/22 06/28/22 06/28/22 20:08 20:08 20:11 MCV MCH MCHC RDW Plt Count MPV Immature Gran % (Auto) Neut % (Auto) Lymph % (Auto) Osborne % (Auto) Eos % (Auto) Baso % (Auto) Lymph # (Auto) Osborne # (Auto) Eos # (Auto) Baso # (Auto) Abs Immat Gran (auto) Absolute Neuts (auto) Absolute Nucleated RBC Nucleated RBC % (auto) Smear Tech's Comments VBG pH 7.46 H VBG pCO2 64 VBG pO2 68 VBG HCO3 46 H VBG O2 Saturation 92.0 VBG Base Excess 18.9 Anion Gap Estim Creat Clear Calc Estimated GFR Random Glucose Lactic Acid Calcium Magnesium Total Bilirubin AST ALT Alkaline Phosphatase Troponin I High Sens 6.3 B-Natriuretic Peptide < 10 Total Protein Albumin Urine Color Urine Appearance Urine pH Ur Specific Thorndike Urine Protein Urine Glucose (UA) Urine Ketones Urine Blood Urine Nitrite Ur Leukocyte Esterase COVID-19 (PAPO) COVID-[employer] (Astilbe) 06/28/22 06/28/22 21:07 23:19 MCV MCH MCHC RDW Plt Count MPV Immature Gran % (Auto) Neut % (Auto) Lymph % (Auto) Osborne % (Auto) Eos % (Auto) Baso % (Auto) Lymph # (Auto) Osborne # (Auto) Eos # (Auto) Baso # (Auto) Abs Immat Gran (auto) Absolute Neuts (auto) Absolute Nucleated RBC Nucleated RBC % (auto) Smear Tech's Comments VBG pH VBG pCO2 VBG pO2 VBG HCO3 VBG O2 Saturation VBG Base Excess Anion Gap Estim Creat Clear Calc Estimated GFR Random Glucose Lactic Acid 1.3 Calcium Magnesium Total Bilirubin AST ALT Alkaline Phosphatase Troponin I High Sens B-Natriuretic Peptide Total Protein Albumin Urine Color Yellow Urine Appearance Clear Urine pH 8.0 Ur Specific Thorndike >= 1.030 H Urine Protein Trace Urine Glucose (UA) Negative Urine Ketones Negative Urine Blood Negative Urine Nitrite Negative Ur Leukocyte Esterase Negative COVID-19 (PAPO) COVID-19 Clin Com Imaging Radiologist's Impressions: Impressions Head CT 06/28/22 21:56 IMPRESSION: No acute intracranial pathology. Abdomen/Pelvis CT 06/28/22 22:08 IMPRESSION: 1. There is a cluster of dilated small bowel loops in the left abdomen. On the prior CT scan from 07/08/2019, appearances were very similar however on the 11/02/2021 study, these were decompressed. Perhaps there is a stricture in this area which becomes symptomatic/significant intermittently. 2. No acute intrathoracic disease. 3. Other incidental findings as described above. Fleischner guidelines were followed. Chest CT 06/28/22 22:08 IMPRESSION: 1. There is a cluster of dilated small bowel loops in the left abdomen. On the prior CT scan from 07/08/2019, appearances were very similar however on the 11/02/2021 study, these were decompressed. Perhaps there is a stricture in this area which becomes symptomatic/significant intermittently. 2. No acute intrathoracic disease. 3. Other incidental findings as described above. Fleischner guidelines were followed. Assessment and Plan (1) Acute and chronic respiratory failure: Qualifiers: Respiratory failure complication: hypoxia Qualified Code(s): J96.21 - Acute and chronic respiratory failure with hypoxia Status: Acute (2) Stricture of bowel: Status: Acute (3) COPD exacerbation: Status: Acute Plan This is 52-year-old female with pertinent history of chronic hypoxemic respiratory failure due to asthma-COPD overlap syndrome, insulin-dependent type 2 diabetes mellitus, essential hypertension, mood disorder, morbid obesity who presents to the emergency department for evaluation of nausea/vomiting and dyspnea. #. Acute on chronic hypoxemic respiratory failure secondary to COPD exacerbation: Will admit patient with supplemental oxygen. Monitor and wean as tolerated, maintain oxygen saturation greater than 88%. Initiating systemic IV steroids. Scheduled and p.r.n. DuoNebs. Continue home inhaler. Initiating azithromycin #. Abdominal pain due to ?small-bowel obstruction. Imaging with questionable stricture and dilated small bowel loops. General surgery consulted from the ER, appreciate assistance. Will keep patient NPO. Symptomatic treatment #. Insulin-dependent diabetes mellitus with neuropathy: Initiating Accu-Cheks with sliding scale insulin every 6 hours. Continue gabapentin #. Reactive leukocytosis: Chronically elevated WBC likely secondary to steroid use #. Essential hypertension: Continue home antihypertensives #. Mood disorder: Continue home mood stabilizers #. History of substance use disorder: On methadone Med rec pending DVT prophylaxis: Lovenox 40 mg daily Full code NPO Admit as inpatient and will require two night minimum hospital stay for acute on chronic respiratory failure requiring close monitoring and titration of supplemental oxygen. Time Spent With Patient Time: Total time managing care of this patient today ____ minutes. Quality Stroke Does the patient have a stroke diagnosis?: No VTE Prior VTE?: No VTE Risk Level:: Medical - moderate - high VTE Device Contraindication: Treatment Not Indicated VTE Drug Contraindication: N/A - Med Ordered
[2022-06-28 23:41] VITALS: PULSE 116; RESP 17; O2SAT 88
[2022-06-28] MEDS: methylPREDNISolone Sod Succ 125 MG/2 ML VIAL IVPUSH (23:59)
[2022-06-28] MEDS: 0.9 % Sodium Chloride Flush 3 ML SYRINGE IVFLUSH (23:59)
[2022-06-28] MEDS: Magnesium Sulfate/H2O 2 GM/50 ML PIGGYBACK IV (23:59)
[2022-06-29] VITALS (11 sets, daily range): BP systolic 147–159; BP diastolic 65–82; PULSE 78–116; RESP 17–21; TEMP 36–36.6; O2SAT 91–96
[2022-06-29] MEDS: methylPREDNISolone Sod Succ 40 MG/ML VIAL IVPUSH ×2 (00:18→11:53)
[2022-06-29 00:21] LABS: Glucose, Whole Blood 86 mg/dL (60-115)
[2022-06-29] MEDS: Azithromycin 500 MG in 0.9 % Sodium Chloride 250 ML 125 MG IV (00:21)
--- NOTE | 2022-06-29 02:44 | PC.NURSE ---
RN to RN report given to nurse Mata. Pt being transferred to room 472 and aware of plan of care.
[2022-06-29] MEDS: Enoxaparin Sodium 40 MG/0.4 ML SYRINGE SUBCUT (05:07)
[2022-06-29 06:53] LABS: Basophils Percent Auto 0.2 % (0-2); Eosinophils Percent Auto 0.1 % (0-4); Hematocrit 38.1 % (37.0-47.0); Hemoglobin 11.6 g/dl (12.0-16.0); Imm Gran Abs Auto 0.09 X10*3/uL (0.00-0.03); Imm Gran Pct Auto 0.6 % (0.0-0.4); Lymphocytes Absolute Auto 0.4 X10*3/uL (1.2-4.9); Lymphocytes Percent Auto 2.7 % (20-40); MANUAL DIFF FLAG SCAN; Mean Corpuscular HGB Conc 30.4 g/dl (31.0-35.0); Mean Corpuscular Hemoglobin 29.1 pg (27.0-33.0); Mean Corpuscular Volume 95.5 fL (80.0-98.0); Mean Platelet Volume 9.3 fL (9.4-12.3); Monocytes Absolute Auto 0.1 X10*3/uL (0.1-1.2); Monocytes Percent Auto 0.6 % (2-11); Neutrophils Absolute Auto 14.1 x10*3/uL (2.0-8.3); Neutrophils Percent Auto 95.8 % (45-73); Platelet Count 286 X10*3/uL (160-400); Red Blood Count 3.99 X10*6/uL (4.20-5.50); Red Cell Distribution Width 14.6 % (11.0-16.0); SCAN SMEAR FLAG 1; White Blood Count 14.7 X10*3/uL (4.8-10.8)
[2022-06-29 07:20] LABS: Anion Gap 17 (12-20); Blood Urea Nitrogen 14 mg/dL (9-16); Calcium 8.7 mg/dL (8.4-10.2); Carbon Dioxide 34 mmol/L (22-29); Chloride 95 mmol/L (96-108); Creatinine Clr Calc Pharmacy 111.3; Estimated Glomerular Filt Rate > 60; Glucose Random 224 mg/dL (60-115); Potassium 4.7 mmol/L (3.3-5.1); Sodium 141 mmol/L (135-145)
[2022-06-29 07:23] LABS: SLIDE REVIEW VERIFIED
[2022-06-29 08:07] LABS: Glucose, Whole Blood 255 mg/dL (60-115)
[2022-06-29] MEDS: Albuterol/Iprat 2.5/0.5MG 3 ML AMPUL.NEB INHALE ×4 (08:23→19:05)
--- NOTE | 2022-06-29 08:57 | HO.PM.IMPN ---
Subjective Subjective Date of Service: 06/29/22 Interval History: here for copd exacerbation with acute on chronic hypoxic respiratory failure that requier bipap Physical Exam Vital Signs: Vital Signs: Last Vital Signs Temp 96.8 F 06/29/22 08:00 Pulse 115 H 06/29/22 08:23 Resp 19 06/29/22 08:23 BP 156/74 H 06/29/22 08:00 Pulse Ox 96 06/29/22 08:00 O2 Del Method Nasal Cannula 06/29/22 08:00 O2 Flow Rate 2 06/29/22 08:00 Oxygen Flow Rate 2 06/28/22 18:38 BMI result Body Mass Index 41.5 Objective Data Active Medications Acetaminophen (Acetaminophen Supp 650 Mg Supp.Rect) 650 mg GA Q6H PRN PRN Reason: Pain, Mild (Pain Scale 1-3) Albuterol/Ipratropium (Albuterol/Iprat 2.5/0.5mg 3 Ml Ampul.Neb) 3 ml INHALE RQ4H WHILE AWAKE [facility] Last Admin: 06/29/22 08:23 Dose: 3 ml Documented By: BI Albuterol/Ipratropium (Albuterol/Iprat 2.5/0.5mg 3 Ml Ampul.Neb) 3 ml INHALE Q4H PRN PRN Reason: Wheezing Enoxaparin Sodium (Enoxaparin Sodium 40 Mg/0.4 Ml Syringe) 40 mg SUBCUT Q24H [facility] Last Admin: 06/29/22 05:07 Dose: 40 mg Documented By: YENNI Glucose (Glucose Gel 15 Gm Gel..Gram.) 15 gm PO Q15M PRN; Protocol PRN Reason: per Hypoglycemia Standing Ord. Azithromycin 500 mg/ Sodium (Chloride) 250 mls @ 125 mls/hr IV DAILY@1700 [facility] Last Infusion: 06/29/22 03:51 Dose: 0 mls/hr Documented By: YENNI Dextrose (D10) 250 mls @ 750 mls/hr IV Q15M PRN; Protocol PRN Reason: per Hypoglycemia Standing Ord. Insulin Human Lispro (Insulin Lispro 100 Unit/Ml 3 Ml Vial) 0 unit SUBCUT Q6H ANA; Protocol Last Admin: 06/29/22 05:51 Dose: Not Given Documented By: YENNI Non-Admin Reason: NPO Melatonin (Melatonin 3 Mg Tablet) 6 mg PO BEDTIME PRN PRN Reason: Insomnia Methylprednisolone Sodium Succinate (Methylprednisolone Sod Succ 40 Mg/Ml Vial) 40 mg IVPUSH Q12H [facility] Last Admin: 06/29/22 00:18 Dose: 40 mg Documented By: BERNICE Morphine Sulfate (Morphine Sulfate 4 Mg/Ml Cartridge) 4 mg IVPUSH Q4H PRN; Protocol PRN Reason: Pain, Severe (Pain Scale 7-10) Ondansetron HCl (Ondansetron Hcl 4 Mg/2 Ml Vial) 4 mg IVPUSH Q8H PRN PRN Reason: Nausea and Vomiting Pharmacy Consult (Consult Rx Perform Med Rec) 1 each MISCELLANE ONCE PRN PRN Reason: Consult order Sodium Chloride (0.9 % Sodium Chloride Flush 3 Ml Syringe) 3 ml IVFLUSH QSHIFT [facility] Last Admin: 06/28/22 23:59 Dose: 3 ml Documented By: AMMY Labs 06/29/22 06:36 06/29/22 06:36 Labs: Laboratory Results - last 24 hr 06/28/22 06/28/22 06/28/22 19:21 20:08 20:08 MCV 93.1 MCH 28.4 MCHC 30.5 L RDW 15.1 Plt Count 343 MPV 9.0 L Immature Gran % (Auto) 0.7 H Neut % (Auto) 86.3 H Lymph % (Auto) 5.9 L [place] % (Auto) 6.7 Eos % (Auto) 0.2 Baso % (Auto) 0.2 Lymph # (Auto) 1.5 [place] # (Auto) 1.7 H Eos # (Auto) 0.0 Baso # (Auto) 0.1 Abs Immat Gran (auto) 0.17 H Absolute Neuts (auto) 22.3 H Absolute Nucleated RBC 0.000 Nucleated RBC % (auto) 0.0 Smear Tech's Comments VERIFIED VBG pH VBG pCO2 VBG pO2 VBG HCO3 VBG O2 Saturation VBG Base Excess Anion Gap 15 Estim Creat Clear Calc 118.7 Estimated GFR > 60 POC Glucose Random Glucose 119 H Lactic Acid Calcium 9.7 Magnesium 2.0 Total Bilirubin 0.3 AST 18 ALT 18 Alkaline Phosphatase 67 Troponin I High Sens B-Natriuretic Peptide Total Protein 7.1 Albumin 4.3 Urine Color Urine Appearance Urine pH Ur Specific [place] Urine Protein Urine Glucose (UA) Urine Ketones Urine Blood Urine Nitrite Ur Leukocyte Esterase COVID-19 (PAPO) Negative [employer] See Note 06/28/22 06/28/22 06/28/22 20:08 20:08 20:11 MCV MCH MCHC RDW Plt Count MPV Immature Gran % (Auto) Neut % (Auto) Lymph % (Auto) [place] % (Auto) Eos % (Auto) Baso % (Auto) Lymph # (Auto) [place] # (Auto) Eos # (Auto) Baso # (Auto) Abs Immat Gran (auto) Absolute Neuts (auto) Absolute Nucleated RBC Nucleated RBC % (auto) Smear Tech's Comments VBG pH 7.46 H VBG pCO2 64 VBG pO2 68 VBG HCO3 46 H VBG O2 Saturation 92.0 VBG Base Excess 18.9 Anion Gap Estim Creat Clear Calc Estimated GFR POC Glucose Random Glucose Lactic Acid Calcium Magnesium Total Bilirubin AST ALT Alkaline Phosphatase Troponin I High Sens 6.3 B-Natriuretic Peptide < 10 Total Protein Albumin Urine Color Urine Appearance Urine pH Ur Specific [place] Urine Protein Urine Glucose (UA) Urine Ketones Urine Blood Urine Nitrite Ur Leukocyte Esterase COVID-19 (PAPO) [employer] 06/28/22 06/28/22 06/29/22 21:07 23:19 00:17 MCV MCH MCHC RDW Plt Count MPV Immature Gran % (Auto) Neut % (Auto) Lymph % (Auto) [place] % (Auto) Eos % (Auto) Baso % (Auto) Lymph # (Auto) [place] # (Auto) Eos # (Auto) Baso # (Auto) Abs Immat Gran (auto) Absolute Neuts (auto) Absolute Nucleated RBC Nucleated RBC % (auto) Smear Tech's Comments VBG pH VBG pCO2 VBG pO2 VBG HCO3 VBG O2 Saturation VBG Base Excess Anion Gap Estim Creat Clear Calc Estimated GFR POC Glucose 86 Random Glucose Lactic Acid 1.3 Calcium Magnesium Total Bilirubin AST ALT Alkaline Phosphatase Troponin I High Sens B-Natriuretic Peptide Total Protein Albumin Urine Color Yellow Urine Appearance Clear Urine pH 8.0 Ur Specific [place] >= 1.030 H Urine Protein Trace Urine Glucose (UA) Negative Urine Ketones Negative Urine Blood Negative Urine Nitrite Negative Ur Leukocyte Esterase Negative COVID-19 (PAPO) [employer] 06/29/22 06/29/2223 06:36 06:36 07:47 MCV 95.5 MCH 29.1 MCHC 30.4 L RDW 14.6 Plt Count 286 MPV 9.3 L Immature Gran % (Auto) 0.6 H Neut % (Auto) 95.8 H Lymph % (Auto) 2.7 L [place] % (Auto) 0.6 L Eos % (Auto) 0.1 Baso % (Auto) 0.2 Lymph # (Auto) 0.4 L [place] # (Auto) 0.1 Eos # (Auto) 0.0 Baso # (Auto) 0.0 Abs Immat Gran (auto) 0.09 H Absolute Neuts (auto) 14.1 H Absolute Nucleated RBC 0.000 Nucleated RBC % (auto) 0.0 Smear Tech's Comments VERIFIED VBG pH VBG pCO2 VBG pO2 VBG HCO3 VBG O2 Saturation VBG Base Excess Anion Gap 17 Estim Creat Clear Calc 111.3 Estimated GFR > 60 POC Glucose 255 H Random Glucose 224 H Lactic Acid Calcium 8.7 D Magnesium Total Bilirubin AST ALT Alkaline Phosphatase Troponin I High Sens B-Natriuretic Peptide Total Protein Albumin Urine Color Urine Appearance Urine pH Ur Specific [place] Urine Protein Urine Glucose (UA) Urine Ketones Urine Blood Urine Nitrite Ur Leukocyte Esterase COVID-19 (PAOP) COVID-19 Clin Com Assessment and Plan (1) Stricture of bowel: Status: Acute (2) Acute and chronic respiratory failure: Status: Acute Plan This is 52-year-old female with pertinent history of chronic hypoxemic respiratory failure due to asthma-COPD overlap syndrome, insulin-dependent type 2 diabetes mellitus, essential hypertension, mood disorder, morbid obesity who presents to the emergency department for evaluation of nausea/vomiting and dyspnea. #.? Acute on chronic hypoxemic respiratory failure secondary to COPD exacerbation:?BIPAP as needed to maintain O2 88 to 93? Monitor and wean as tolerated, maintain oxygen saturation greater than 88%.? IV steroids.? Scheduled and p.r.n. DuoNebs.? Continue home inhaler.? Initiating azithromycin #.? Abdominal pain due to ?small-bowel obstruction.? Imaging with questionable stricture and dilated small bowel loops.? General surgery consulted from the ER, appreciate assistance.? Will keep patient NPO.? Symptomatic treatment #.? Insulin-dependent diabetes mellitus with neuropathy: Initiating Accu-Cheks with sliding scale insulin every 6 hours.? Continue gabapentin #.? Reactive leukocytosis: Chronically elevated WBC likely secondary to steroid use #.? Essential hypertension:? Continue home antihypertensives #.? Mood disorder: Continue home mood stabilizers #.? History of substance use disorder: On methadone #Chronic opioid dependence --methadone need for inpatient: acute hypoxic resp failure on chronic respiratory failure and need bipap Time Spent With Patient Time: Total time managing care of this patient today ____ minutes. Quality Stroke Does the patient have a stroke diagnosis?: No VTE Prior VTE?: No VTE Risk Level:: Medical - moderate - high VTE Device Contraindication: Treatment Not Indicated VTE Drug Contraindication: N/A - Med Ordered
--- NOTE | 2022-06-29 09:10 | PM.CNGS ---
History of Present Illness Consult details Consult date: 06/29/22 Requesting physician: Sara Doe Narrative: 52-year-old woman with multiple medical problems including COPD, CHITO, chronic shortness of breath, type 2 diabetes (HbA1C 6.9 today) morbid obesity, unknown prior abdominal operations who presents with nausea, vomiting and diarrhea with vague abdominal pain after eating at a buffet. The patient is seen with interpretive services, archana Rene. The patient states that she went to a buffet and after eating, had profound nausea, vomiting and then diarrhea. Last bowel movement and diarrhea was last night in the emergency department. She states she feels better and is hungry. She states she is passing gas and wants to eat. She denies chest pain, difficulty breathing or shortness of breath. Patient reports her only past surgical history is an unknown operation to prevent . Review of Systems Review of Systems: Yes all other systems are reviewed and are negative Constitutional: Constitutional: Reports as per [facility] Past Medical History Medical History Abdominal pain Abnormal chest x-ray Acute respiratory failure Aspiration into airway Asthma-COPD overlap syndrome Cellulitis Chronic constipation Chronic respiratory failure Chronic respiratory failure Congestive heart failure COPD (chronic obstructive pulmonary disease) COPD exacerbation COPD mixed type Cor pulmonale Diabetes mellitus Essential hypertension Hyperlipidemia, unspecified Hypertensive cardiovascular disease Hypogammaglobulinemia Leukocytosis Limb swelling Morbid obesity Opioid dependence Poor dentition Pulmonary congestion Pulmonary nodule Rib fractures Status asthmaticus with COPD (chronic obstructive pulmonary disease) Tobacco abuse Type 2 diabetes mellitus Type 2 diabetes mellitus with unspecified complications Vomiting Family History Family History Father Diabetes Other Asthma Surgical History Surgical History H/O tubal ligation Social History Social History Household Members: Children Household Members Other:: daughter Housing: Apartment Do you presently have visiting nurse or other home services: Yes Unable to assess alcohol history related to: Unknown Alcohol intake: never Patient Tobacco Use Status: Former Tobacco user Quit Date: February 2022 Tobacco use type: Cigarette Cigarettes Per Day: 1 Years Smoked: 35 e-Cigarette/Vaping Use: Currently Using Second Hand Smoke Exposure: No Substance Use Type: Opiates Advance Directives Date on File: 06/12/21 service: No Current occupational status: disabled Meds Allergies Allergy/AdvReac Type Severity Reaction Status Date / Time No Known Allergies Allergy Verified 05/27/22 10:15 [No Known Allergies*] Active Medications: Current Medications Acetaminophen (Acetaminophen Supp 650 Mg Supp.Rect) 650 mg OR Q6H PRN PRN Reason: Pain, Mild (Pain Scale 1-3) Albuterol/Ipratropium (Albuterol/Iprat 2.5/0.5mg 3 Ml Ampul.Neb) 3 ml INHALE RQ4H WHILE AWAKE [facility] Last Admin: 06/29/22 08:23 Dose: 3 ml Albuterol/Ipratropium (Albuterol/Iprat 2.5/0.5mg 3 Ml Ampul.Neb) 3 ml INHALE Q4H PRN PRN Reason: Wheezing Clonazepam (Clonazepam 1 Mg Tablet) 1 mg PO BID PRN PRN Reason: Anxiety Diltiazem HCl (Diltiazem Hcl Cd 180 Mg Cap.Er.24h) 360 mg PO DAILY [facility]; Protocol Enoxaparin Sodium (Enoxaparin Sodium 40 Mg/0.4 Ml Syringe) 40 mg SUBCUT Q24H [facility] Last Admin: 06/29/22 05:07 Dose: 40 mg Ergocalciferol (Ergocalciferol (Vitamin D2) 1,250 Mcg Capsule) 1,250 mcg PO QWEEK [facility] Gabapentin (Gabapentin 300 Mg Capsule) 300 mg PO BID [facility] Glucose (Glucose Gel 15 Gm Gel..Gram.) 15 gm PO Q15M PRN; Protocol PRN Reason: per Hypoglycemia Standing Ord. Hydralazine HCl (Hydralazine Hcl 25 Mg Tablet) 25 mg PO TID [facility]; Protocol Azithromycin 500 mg/ Sodium (Chloride) 250 mls @ 125 mls/hr IV DAILY@1700 [facility] Last Infusion: 06/29/22 03:51 Dose: Infused Dextrose (D10) 250 mls @ 750 mls/hr IV Q15M PRN; Protocol PRN Reason: per Hypoglycemia Standing Ord. Insulin Glargine (Insulin Glargine,Hum.Rec.Anlog 100 Unit/Ml 10 Ml Vial) 35 unit SUBCUT BEDTIME [facility] Insulin Human Lispro (Insulin Lispro 100 Unit/Ml 3 Ml Vial) 0 unit SUBCUT Q6H [facility]; Protocol Last Admin: 06/29/22 05:51 Dose: Not Given Insulin Human Lispro (Insulin Lispro 100 Unit/Ml 3 Ml Vial) 4 unit SUBCUT TIDAC [facility] Lisinopril (Lisinopril 40 Mg Tablet) 40 mg PO DAILY [facility]; Protocol Loratadine (Loratadine 10 Mg Tablet) 10 mg PO DAILY [facility] Melatonin (Melatonin 3 Mg Tablet) 6 mg PO BEDTIME PRN PRN Reason: Insomnia Methylprednisolone Sodium Succinate (Methylprednisolone Sod Succ 40 Mg/Ml Vial) 40 mg IVPUSH Q12H [facility] [place] Last Admin: 06/29/22 00:18 Dose: 40 mg Montelukast Sodium (Montelukast Sodium 10 Mg Tablet) 10 mg PO BEDTIME [facility] Morphine Sulfate (Morphine Sulfate 4 Mg/Ml Cartridge) 4 mg IVPUSH Q4H PRN; Protocol PRN Reason: Pain, Severe (Pain Scale 7-10) Non-Formulary Medication (Arformoterol [Brovana]) 2 ml INHALE Q12H [facility] Non-Formulary Medication (Budesonide) 0.5 mg INHALE BID [facility] Non-Formulary Medication (Roflumilast [Daliresp]) 500 mcg PO DAILY [facility] [place] Non-Formulary Medication (Rosuvastatin) 5 mg PO BEDTIME [facility] [place] Non-Formulary Medication (Theophylline) 450 mg PO Q12H [facility] [place] Omeprazole (Omeprazole 40 Mg Capsule.Dr) 40 mg PO DAILY@0630 [facility] [place] Ondansetron HCl (Ondansetron Hcl 4 Mg/2 Ml Vial) 4 mg IVPUSH Q8H PRN PRN Reason: Nausea and Vomiting Pharmacy Consult (Consult Rx Perform Med Rec) 1 each MISCELLANE ONCE PRN PRN Reason: Consult order Prednisone (Prednisone 10 Mg Tablet) 30 mg PO DAILY [facility] Salmeterol Xinafoate (Salmeterol Xinafoate 50 Mcg Blst.W.Dev) 1 puff INHALE RBID [facility] Simethicone (Simethicone 80 Mg Tab.Chew) 80 mg PO QIDWMHS PRN PRN Reason: Abdominal Distention Sodium Chloride (0.9 % Sodium Chloride Flush 3 Ml Syringe) 3 ml IVFLUSH QSHIFT [facility] [place] Last Admin: 06/28/22 23:59 Dose: 3 ml Tiotropium [place] (Tiotropium [place] 18 Mcg Cap.W.Dev) puff INHALE DAILY [facility] Home Medications Medication Instructions Recorded Confirmed Last Taken Type albuterol sulfate 90 mcg/actuation 2 puff inhalation Q4H PRN 12/30/19 06/28/22 04/07/22 History aerosol inhaler (ProAir HFA) Shortness Of Breath Or Wheezing loratadine 10 mg tablet (Claritin) 10 mg PO DAILY 12/30/19 06/28/22 04/07/22 History montelukast 10 mg tablet 10 mg PO BEDTIME 12/30/19 06/28/22 04/06/22 History diltiazem HCl 360 mg capsule,24 360 mg PO DAILY 11/16/20 06/28/22 04/07/22 History hr,extended release (Tiadylt ER) roflumilast 500 mcg tablet 500 mcg PO DAILY 11/16/20 06/28/22 04/07/22 History (Daliresp) rosuvastatin 5 mg tablet 5 mg PO BEDTIME 11/16/20 06/28/22 04/06/22 History insulin lispro 100 unit/mL See Protocol subcut TIDAC 12/14/20 06/28/22 04/07/22 History subcutaneous solution (Humalog U-100 Insulin) metformin 500 mg tablet,extended 1,000 mg PO BID 05/18/21 06/28/22 04/07/22 History release 24 hr ergocalciferol (vitamin D2) 1,250 1,250 mcg PO QWEEK 06/06/21 06/28/22 Unknown History mcg (50,000 unit) capsule methadone 10 mg/mL oral concentrate 50 mg PO DAILY 06/06/21 04/08/22 04/07/22 History lisinopril 40 mg tablet 40 mg PO DAILY 07/30/21 06/28/22 04/07/22 History hydralazine 25 mg tablet 25 mg PO TID 11/02/21 06/28/22 04/07/22 History insulin lispro 100 unit/mL 4 unit subcut TIDAC 11/02/21 06/28/22 04/07/22 History subcutaneous solution omeprazole 40 mg capsule,delayed 40 mg PO DAILY@0630 11/02/21 06/28/22 04/07/22 History release clonazepam 1 mg tablet 1 mg PO BID PRN Anxiety 06/28/22 06/28/22 Unknown History ibuprofen 600 mg tablet 600 mg PO Q8H 06/28/22 06/28/22 Unknown History prednisone 10 mg tablet 30 mg PO DAILY 06/28/22 06/28/22 Unknown History Physical Exam Vital Signs: Vital Signs: Last Vital Signs Temp 96.8 F 06/29/22 08:00 Pulse 115 H 06/29/22 08:23 Resp 19 06/29/22 08:23 BP 156/74 H 06/29/22 08:00 Pulse Ox 96 06/29/22 08:00 O2 Del Method Nasal Cannula 06/29/22 08:00 O2 Flow Rate 2 06/29/22 08:00 Oxygen Flow Rate 2 06/28/22 18:38 BMI result Body Mass Index 41.5 The patient is non-toxic & in good spirits NC/AT, PERRLA, EOMI Mood, affect & judgment all appear appropriate Sclera anicteric conjunctiva pink and moist Oropharynx is clear with no aphthous ulcers, Mallampati class 4, mucous membranes moist Neck is supple with no masses, adenopathy or bruits Thyroid is nontender and free of dominant masses Heart is regular, normal S1-S2 no rubs or murmurs Lungs are clear and equal anteriorly with no audible wheezing, rubs or dullness to percussion Abdomen is soft, nontender & obese with no demonstrable hernias. No HSM, rebound, rigidity, guarding, masses or bruits are present. No tenderness is appreciated on exam Rectal exam is deferred Skin has good turgor and is free of rashes Extremities free of cyanosis clubbing edema Results Labs 06/29/22 06:36 06/29/22 06:36 Labs: Abnormal lab results 06/28/22 06/28/22 06/28/22 Range/Units 20:08 20:08 20:11 WBC 25.8 H (4.8-10.8) X10*3/uL RBC (4.20-5.50) X10*6/uL Hgb (12.0-16.0) g/dl MCHC 30.5 L (31.0-35.0) g/dl MPV 9.0 L (9.4-12.3) fL Immature Gran % (Auto) 0.7 H (0.0-0.4) % Neut % (Auto) 86.3 H (45-73) % Lymph % (Auto) 5.9 L (20-40) % [place] % (Auto) (2-11) % Lymph # (Auto) (1.2-4.9) X10*3/uL [place] # (Auto) 1.7 H (0.1-1.2) X10*3/uL Abs Immat Gran (auto) 0.17 H (0.00-0.03) X10*3/uL Absolute Neuts (auto) 22.3 H (2.0-8.3) x10*3/uL VBG pH 7.46 H (7.32-7.43) VBG HCO3 46 H (22-26) mmol/L Chloride 95 L (96-108) mmol/L Carbon Dioxide 37 H (22-29) mmol/L BUN 20 H (9-16) mg/dL POC Glucose (60-115) mg/dL Random Glucose 119 H (60-115) mg/dL Ur Specific [place] (1.005-1.025) 06/28/22 06/29/22 06/29/22 Range/Units 23:19 06:36 06:36 WBC 14.7 H (4.8-10.8) X10*3/uL RBC 3.99 L (4.20-5.50) X10*6/uL Hgb 11.6 L (12.0-16.0) g/dl MCHC 30.4 L (31.0-35.0) g/dl MPV 9.3 L (9.4-12.3) fL Immature Gran % (Auto) 0.6 H (0.0-0.4) % Neut % (Auto) 95.8 H (45-73) % Lymph % (Auto) 2.7 L (20-40) % [place] % (Auto) 0.6 L (2-11) % Lymph # (Auto) 0.4 L (1.2-4.9) X10*3/uL [place] # (Auto) (0.1-1.2) X10*3/uL Abs Immat Gran (auto) 0.09 H (0.00-0.03) X10*3/uL Absolute Neuts (auto) 14.1 H (2.0-8.3) x10*3/uL VBG pH (7.32-7.43) VBG HCO3 (22-26) mmol/L Chloride 95 L (96-108) mmol/L Carbon Dioxide 34 H (22-29) mmol/L BUN (9-16) mg/dL POC Glucose (60-115) mg/dL Random Glucose 224 H (60-115) mg/dL Ur Specific [place] >= 1.030 H (1.005-1.025) 06/29/22 Range/Units 07:47 WBC (4.8-10.8) X10*3/uL RBC (4.20-5.50) X10*6/uL Hgb (12.0-16.0) g/dl MCHC (31.0-35.0) g/dl MPV (9.4-12.3) fL Immature Gran % (Auto) (0.0-0.4) % Neut % (Auto) (45-73) % Lymph % (Auto) (20-40) % [place] % (Auto) (2-11) % Lymph # (Auto) (1.2-4.9) X10*3/uL [place] # (Auto) (0.1-1.2) X10*3/uL Abs Immat Gran (auto) (0.00-0.03) X10*3/uL Absolute Neuts (auto) (2.0-8.3) x10*3/uL VBG pH (7.32-7.43) VBG HCO3 (22-26) mmol/L Chloride (96-108) mmol/L Carbon Dioxide (22-29) mmol/L BUN (9-16) mg/dL POC Glucose 255 H (60-115) mg/dL Random Glucose (60-115) mg/dL Ur Specific [place] (1.005-1.025) Short CBC 06/28/22 06/29/22 Range/Units 20:08 06:36 WBC 25.8 H 14.7 H (4.8-10.8) X10*3/uL Hgb 12.4 11.6 L (12.0-16.0) g/dl Hct 40.6 38.1 (37.0-47.0) % Plt Count 343 286 (160-400) X10*3/uL BMP 06/28/22 06/29/22 20:08 06:36 Sodium 143 141 Potassium 3.8 4.7 D Chloride 95 L 95 L Carbon Dioxide 37 H 34 H BUN 20 H 14 Creatinine 0.60 0.64 Calcium 9.7 8.7 D Liver Function 06/28/22 Range/Units 20:08 Total Bilirubin 0.3 (0.0-1.0) mg/dL AST 18 (5-31) U/L ALT 18 (0-31) U/L Alkaline Phosphatase 67 (39-117) U/L Albumin 4.3 (3.5-5.0) g/dL Urine 06/28/22 Range/Units 23:19 Urine Color Yellow Urine Appearance Clear Urine pH 8.0 (5.0-9.0) Ur Specific [place] >= 1.030 H (1.005-1.025) Urine Protein Trace (Neg-Trace) mg/dL Urine Glucose (UA) Negative (Negative) mg/dL All other labs normal. Imaging Abdomen CT scan report/results: report reviewed and image reviewed CT scan - pelvis: report reviewed and image reviewed Additional studies: Repeat CT of the abdomen and pelvis with oral contrast is pending Assessment and Plan (1) Morbid obesity: Status: Acute (2) Acute and chronic respiratory failure: Qualifiers: Respiratory failure complication: hypoxia Qualified Code(s): J96.21 - Acute and chronic respiratory failure with hypoxia Status: Acute (3) COPD (chronic obstructive pulmonary disease): Status: Acute (4) Cor pulmonale: Status: Acute (5) CHITO (obstructive sleep apnea): Status: Acute (6) Diarrhea: Status: Acute Plan Clinically, the patient's story of having vomiting and diarrhea after eating a buffet is most consistent with gastroenteritis which can have findings consistent with an ileus and nonspecific pattern is noted on CT. Repeat CT with oral contrast is pending Expected to be normal given that the patient is complaining that she is hungry and wants to eat and has no abdominal pain. Await repeat CT Time Spent With Patient Time: Total time managing care of this patient today ____ minutes. Procedures Date of Service Date of Service: 06/29/22
[2022-06-29] MEDS: Barium Sulfate Oral (Vanilla) 450 ML ORAL.SUSP 900 ML PO (09:37)
[2022-06-29 11:34] LABS: Estimated Average Glucose 151 mg/dL; Hemoglobin A1c % 6.9 %
[2022-06-29] MEDS: 0.9 % Sodium Chloride Flush 3 ML SYRINGE IVFLUSH ×3 (11:54→20:48)
[2022-06-29 11:56] LABS: Glucose, Whole Blood 203 mg/dL (60-115)
[2022-06-29 11:59] LABS: Glucose, Whole Blood 254 mg/dL (60-115)
[2022-06-29] MEDS: Insulin Lispro 100 UNIT/ML 3 ML VIAL SUBCUT ×2 (12:29)
--- NOTE | 2022-06-29 12:49 | MHC.CM.PN ---
PT LIVES WITH HER DAUGHTER AND HAS DAILY VNA AND PAINTER AND DECORATOR APPRENTICE PT ACTIVE WITH [facility] DURING LAST ADMISSION, MESSAGE LEFT TO CONFIRM PT IS STILL WITH THIS AGENCY PT ALSO ACTIVE WITH [facility] IN [place], HOWEVER [facility]NA DELIVERS METHADONE PT HAS A BIPAP, HOME O2, AND A WALKER AT HOME HCP ON FILE PCP: FILOMENA HERNANDEZ DCP: HOME, RESUME PAINTER AND DECORATOR APPRENTICE AND VNA DAUGHTER TO TRANSPORT
[2022-06-29] MEDS: iohexoL 350 MG/ML 100 ML INFUS..BTL IV (13:36)
[2022-06-29] MEDS: hydrALAZINE HCl 25 MG TABLET PO ×2 (15:23→20:47)
[2022-06-29] MEDS: methADONE HCl 20 MG/2 ML ORAL.CONC 50 MG PO (15:24)
[2022-06-29 15:30] LABS: Glucose, Whole Blood 117 mg/dL (60-115)
[2022-06-29 17:58] LABS: Glucose, Whole Blood 179 mg/dL (60-115)
[2022-06-29] MEDS: Salmeterol Xinafoate 50 MCG BLST.W.DEV 1 PUFF INHALE (19:05)
[2022-06-29] MEDS: Gabapentin 300 MG CAPSULE PO (20:47)
[2022-06-29] MEDS: Atorvastatin Calcium 20 MG TABLET PO (20:47)
[2022-06-29] MEDS: Montelukast Sodium 10 MG TABLET PO (20:47)
[2022-06-29] MEDS: Insulin Glargine,Hum.rec.anlog 100 UNIT/ML 10 ML VIAL 35 UNIT SUBCUT (20:48)
[2022-06-30] VITALS (9 sets, daily range): BP systolic 144–155; BP diastolic 63–84; PULSE 73–115; RESP 18–22; TEMP 36.1–36.8; O2SAT 93–97
[2022-06-30 00:28] LABS: Glucose, Whole Blood 261 mg/dL (60-115)
[2022-06-30] MEDS: methylPREDNISolone Sod Succ 40 MG/ML VIAL IVPUSH ×2 (00:39→11:50)
[2022-06-30] MEDS: Insulin Lispro 100 UNIT/ML 3 ML VIAL SUBCUT ×5 (00:40→11:51)
[2022-06-30] MEDS: Morphine Sulfate 4 MG/ML CARTRIDGE 2 MG IVPUSH (00:47)
[2022-06-30] MEDS: Enoxaparin Sodium 40 MG/0.4 ML SYRINGE SUBCUT (05:20)
[2022-06-30] MEDS: Omeprazole 40 MG CAPSULE.DR PO (05:20)
[2022-06-30 05:52] LABS: Glucose, Whole Blood 193 mg/dL (60-115)
[2022-06-30] MEDS: Albuterol/Iprat 2.5/0.5MG 3 ML AMPUL.NEB INHALE ×2 (08:03→11:38)
[2022-06-30] MEDS: Salmeterol Xinafoate 50 MCG BLST.W.DEV 1 PUFF INHALE (08:03)
[2022-06-30 08:08] LABS: Glucose, Whole Blood 245 mg/dL (60-115)
[2022-06-30] MEDS: predniSONE 10 MG TABLET 30 MG PO (08:55)
[2022-06-30] MEDS: Gabapentin 300 MG CAPSULE PO (08:56)
[2022-06-30] MEDS: hydrALAZINE HCl 25 MG TABLET PO (08:57)
[2022-06-30] MEDS: lisinopriL 40 MG TABLET PO (08:57)
[2022-06-30] MEDS: Loratadine 10 MG TABLET PO (08:57)
[2022-06-30] MEDS: dilTIAZem HCL CD 180 MG CAP.ER.24H 360 MG PO (08:58)
[2022-06-30] MEDS: 0.9 % Sodium Chloride Flush 3 ML SYRINGE IVFLUSH (09:00)
--- NOTE | 2022-06-30 10:30 | PM.DS ---
DS: Providers Provider Date of Service: 06/30/22 Date of admission: 06/28/22 23:32 Primary care physician: Unknown Physician Consults: 06/28/22 23:31 Consult to General Surgery Stat Consulting Provider: Kael Dsouza Reason for consultation: dialted small bowel loops Has provider been notified: No DS: Diagnosis Discharge Diagnosis (1) Morbid obesity: Status: Acute (2) Acute and chronic respiratory failure: Status: Acute (3) COPD (chronic obstructive pulmonary disease): Status: Acute (4) Cor pulmonale: Status: Acute (5) CHITO (obstructive sleep apnea): Status: Acute (6) Diarrhea: Status: Acute DS: Summary Hospital Course Hospital Course: Chief Complaint: Nausea/vomiting This is 52-year-old female with pertinent history of chronic hypoxemic respiratory failure due to asthma-COPD overlap syndrome BiPAP dependent, insulin-dependent type 2 diabetes mellitus, essential hypertension, mood disorder, morbid obesity, history of opioid use who presents to the emergency department for evaluation of nausea/vomiting and dyspnea.? Patient states her symptoms started this morning.? Patient has been having epigastric discomfort, constant, nonradiating and without any relieving factors.? It is associated with nausea and nonbloody emesis.? Patient states she is not able to keep anything down.? Patient also started having dyspnea, worse with exertion and associated wheezing.? Has been having nonproductive cough.? Patient has been compliant with her home BiPAP and supplemental oxygen.? She is on baseline 2 to 2.5 L at home.? Patient denies fever, chills, chest discomfort, palpitations, changes in urinary habits In the emergency department, imaging with questionable stricture and dilated small bowel loops Hospital course: 52-year-old female with pertinent history of chronic hypoxemic respiratory failure due to asthma-COPD overlap syndrome, insulin-dependent type 2 diabetes mellitus, essential hypertension, mood disorder, morbid obesity who presents to the emergency department for evaluation of nausea/vomiting and dyspnea. #.? Acute on chronic hypoxemic respiratory failure secondary to COPD exacerbation. Treated as usual with BiPAP as needed, bronchodilators and steroid , she is back to her baseline chronic respiratory failure and feels comfortable and would like to go home. #.? Abdominal pain due to ?small-bowel obstruction on initial CT. She was evaluated by surgery and repeat CT of abdomen with oral contrast showed no evidence of bowel obstruction. according to surgery Clinically, the patient's story of having vomiting and diarrhea after eating a buffet is most consistent with gastroenteritis which can have findings consistent with an ileus and nonspecific pattern is noted on CT She presently has no symptoms and is tolerating regular diet. #.? Insulin-dependent diabetes mellitus with neuropathy: Initiating Accu-Cheks with sliding scale insulin every 6 hours.? Continue gabapentin #.? Reactive leukocytosis: Chronically elevated WBC likely secondary to steroid use #.? Essential hypertension:? Continue home antihypertensives #.? Mood disorder: Continue home mood stabilizers #.? History of substance use disorder: On methadone #Chronic opioid dependence --Of note we could not reach Methadone clinic, but reviewing prior record with frequent admission and accordance with patient's acount as well as [employer] stating that she takes 49 at home when in the hospital 50, pt given 50 mg for the 2 days she was here Time Spent with Patient Time attestation: Total time managing care of this patient today ____ minutes. Discharge coordination time: Greater than 30 minutes Quality: Safe Use of Opioids Does Pt have an Active Cancer Diagnosis on the Problem List?: No Quality: Stroke Does the patient have a stroke diagnosis?: No Physical Exam Vital Signs: Vital Signs: Last Vital Signs Temp 97.2 F 06/30/22 08:00 Pulse 113 H 06/30/22 08:06 Resp 20 06/30/22 08:06 BP 155/83 H 06/30/22 08:00 Pulse Ox 95 06/30/22 08:00 O2 Del Method Nasal Cannula 06/30/22 08:00 O2 Flow Rate 1 06/30/22 03:26 Oxygen Flow Rate 2 06/28/22 18:38 BMI result Body Mass Index 41.5 DS: Data Data Completed and Pending Completed studies during hospitalization [Text1]: Procedures Assistance with Respiratory Ventilation, 24-96 Consecutive Hours, Continuous Positive Airway Pressure (05/18/21) Assistance with Respiratory Ventilation, Less than 24 Consecutive Hours, Continuous Positive Airway Pressure (02/13/22) Insertion of Endotracheal Airway into Trachea, Via Natural or Artificial Opening (12/21/21) Insertion of Infusion Device into Right Atrium, Percutaneous Approach (12/21/21) Insertion of Infusion Device into Superior Vena Cava, Percutaneous Approach (11/02/21) Introduction of Vasopressor into Peripheral Vein, Percutaneous Approach (12/21/21) Respiratory Ventilation, 24-96 Consecutive Hours (12/21/21) Ultrasonography of Superior Vena Cava, Guidance (12/21/21) Labs on day of discharge: Laboratory Results - last 24 hr 06/29/22 06/29/22 06/29/22 05:46 10:38 10:38 POC Glucose 203 H Estimat Average Glucose 151 Hemoglobin A1c % 6.9 Prealbumin 22.0 06/29/22 06/29/22 06/29/22 11:26 15:26 17:52 POC Glucose 254 H 117 H 179 H Estimat Average Glucose Hemoglobin A1c % Prealbumin 06/30/22 06/30/22 06/30/22 00:23 05:47 07:38 POC Glucose 261 H 193 H 245 H Estimat Average Glucose Hemoglobin A1c % Prealbumin Preliminary micro results at discharge 06/28/22 22:25 Blood Culture - Preliminary Blood - Venous No growth after 24 hours. 06/28/22 22:25 Blood Culture - Preliminary Blood - Venous No growth after 24 hours. Discharge Plan Discharge Anticipated Discharge Date/Time: 06/30/22 10:30 Patient Disposition: Home, Self-Care Discharge Diagnosis: COPD exacerbation, Gastroenteritis Referrals: Physician,Unknown J [Primary Care Provider] - 1 Week Discharge Medications: New prednisone 10 mg tablet See Taper PO DIRECTED Qty: 30 0RF Taper: Prednisone 40 mg daily for 3 Days and 0 Hour 30 mg daily for 3 Days and 0 Hour 20 mg daily for 3 Days and 0 Hour 10 mg daily for 3 Days and 0 Hour Rx Instructions: see taper instructions Continued Spiriva with HandiHaler 18 mcg capsule, w/inhalation device 1 cap inhalation DAILY Qty: 30 11RF ipratropium-albuterol 0.5 mg-3 mg(2.5 mg base)/3 mL solution for nebulization 3 ml PO Q4H PRN (Reason: for wheezing) Qty: 540 6RF gabapentin 300 mg capsule 300 mg PO BID 30 Days Qty: 60 3RF diclofenac potassium 50 mg tablet 50 mg PO BID 30 Days Qty: 60 0RF Brovana 15 mcg/2 mL solution for nebulization 2 ml inhalation Q12H 30 Days Qty: 120 11RF diltiazem HCl [Tiadylt ER] 360 mg capsule,extended release 24 hr 360 mg PO DAILY rosuvastatin 5 mg tablet 5 mg PO BEDTIME roflumilast [Daliresp] 500 mcg tablet 500 mcg PO DAILY insulin lispro [Humalog U-100 Insulin] 100 unit/mL solution See Protocol subcut TIDAC Protocol: Insulin Correction Scale Less than or equal to 110 ---- Give (units): 0 111 to 150 Give (units): 0 151 to 200 Give (units): 2 201 to 250 Give (units): 4 251 to 300 Give (units): 6 301 to 350 Give (units): 8 Greater than 350 Give (units): 10 Call MD if Blood Glucose > : 350 metformin 500 mg tablet extended release 24 hr 1,000 mg PO BID hydralazine 25 mg tablet 25 mg PO TID insulin lispro 100 unit/mL solution 4 unit subcut TIDAC omeprazole 40 mg capsule,delayed release(DR/EC) 40 mg PO DAILY@0630 insulin glargine [Lantus U-100 Insulin] 100 unit/mL solution 35 unit subcut BEDTIME Qty: 10 0RF methadone 10 mg/mL Concentrate 50 mg PO DAILY ergocalciferol (vitamin D2) 1,250 mcg (50,000 unit) capsule 1,250 mcg PO QWEEK lisinopril 40 mg tablet 40 mg PO DAILY Serevent Diskus 50 mcg/dose Blister With Device 1 inh inhalation RBID 30 Days Qty: 60 2RF simethicone [Gas Relief (simethicone)] 80 mg Tablet,Chewable 80 mg PO QIDWMHS PRN (Reason: Abdominal Distention) Qty: 30 0RF clonazepam 1 mg tablet 1 mg PO BID PRN (Reason: Anxiety) ibuprofen 600 mg tablet 600 mg PO Q8H prednisone 10 mg tablet 30 mg PO DAILY montelukast 10 mg tablet 10 mg PO BEDTIME albuterol sulfate [ProAir HFA] 90 mcg/actuation HFA aerosol inhaler 2 puff inhalation Q4H PRN (Reason: Shortness Of Breath Or Wheezing) loratadine [Claritin] 10 mg tablet 10 mg PO DAILY budesonide 0.5 mg/2 mL suspension for nebulization 0.5 mg inhalation BID Qty: 120 11RF theophylline 450 mg tablet extended release 12 hr 450 mg PO Q12H 30 Days Qty: 60 6RF Discharge Orders: Discharge Order (Routine); Ordered 06/30/22 Ordered By: Joao Meehan Diet: Advance to usual diet Activity on Discharge: As tolerated Stand Alone Forms: Patient Portal Discharge page Care Plan Goals: Full recovery from copd and gastrointeritis Health Concerns: Chronic respiratory failure due to copd Plan of Treatment: Use inhalers and steroids as recommended and follow up with your Doctor in a week Please do not smoke Assessment: as above
--- NOTE | 2022-06-30 11:08 | HE.PHANOTE ---
Methadone verificaiton Pharmacy has received the methadone verificaiton from [facility]. Patient received take home bottles from [facility] and was last dose at methadone 50 mg. Confirmed with Homecare nurse last dose was given 2 days ago. Jyoti Camacho, [place]
[2022-06-30 11:31] LABS: Glucose, Whole Blood 321 mg/dL (60-115)
[2022-06-30] MEDS: methADONE HCl 20 MG/2 ML ORAL.CONC 50 MG PO (11:50)
--- NOTE | 2022-06-30 13:04 | MHC.CM.PN ---
PT WILL DC HOME WITH RESUMPTION OF [employer] [facility] TO TRANSPORT
== END 2022-06-30 13:41 | disposition home or self-care (01) | DRG 140 ==
LOC: HO.ED 23:43 → HO.EDOVER 06-29 00:09 → HO.IMC 06-29 02:30
PROVIDERS: Physician Assistant; Physician Assistant Medical; Surgery; Admitting Provider Student in an Organized Health Care Education/Training Program; Emergency Provider Emergency Medicine; PCP Family Medicine; Visit Provider Internal Medicine
DX: J44.1 Chronic obstructive pulmonary disease with (acute) exacerbation (principal); J96.21 Acute and chronic respiratory failure with hypoxia; I27.81 Cor pulmonale (chronic); Z99.81 Dependence on supplemental oxygen; F11.20 Opioid dependence, uncomplicated; K52.9 Noninfective gastroenteritis and colitis, unspecified; E66.01 Morbid (severe) obesity due to excess calories; Z68.41 Body mass index [BMI] 40.0-44.9, adult; G47.33 Obstructive sleep apnea (adult) (pediatric); D72.829 Elevated white blood cell count, unspecified; F39 Unspecified mood [affective] disorder; Z20.822 Contact with and (suspected) exposure to COVID-19; Z87.891 Personal history of nicotine dependence; Z79.4 Long term (current) use of insulin; Z79.52 Long term (current) use of systemic steroids; Z79.84 Long term (current) use of oral hypoglycemic drugs; Z79.899 Other long term (current) drug therapy
CPT/HCPCS: 36415; 70450; 71260; 74177; 80048; 80053; 81003; 82803; 82947; 83036; 83605; 83735; 83880; 84134; 84484; 85025; 87040; 87635; 93005; 94640; 94660; 99222; 99285; J0456; J0696; J1650; J2270; J2405; J2920; J2930; J3475; Q9967

== ENCOUNTER 2022-07-08 09:41 | Outpatient (REF) | payer MEDICAID, SELFPAY | END 2022-07-08 09:42 | disposition home or self-care (01) | LOC: HO.MDS 09:41 | PROVIDERS: Visit Provider Hospitalist | DX: D80.1 Nonfamilial hypogammaglobulinemia (principal) | CPT/HCPCS: 96365; 96366; J1569 ==

== ENCOUNTER 2022-07-26 19:25 | Emergency (ER) | payer MEDICAID, SELFPAY ==
--- NOTE | 2022-07-26 | ECG_ITS ---
Test Reason : SOB Blood Pressure : / mmHG Vent. Rate : 147 BPM Atrial Rate : 147 BPM P-R Int : 124 ms QRS Dur : 114 ms QT Int : 280 ms P-R-T Axes : 058 047 052 degrees QTc Int : 438 ms Sinus tachycardia Inferior-posterior infarct , age undetermined Abnormal ECG When compared with ECG of 28-JUN-2022 21:38, No significant changes seen Referred By: Benedicto Padgett Electronically Signed By:RONALD SCHAFER
--- NOTE | ~2022-07-26 | XR_ITS ---
EXAMINATION: XR CHEST CLINICAL INFORMATION: Shortness of breath. COMPARISON: 05/13/2022 chest radiograph. TECHNIQUE: Frontal view of the chest was obtained. FINDINGS: Multilevel healed right rib fractures are again seen. The lungs are clear. The heart and mediastinal structures are unremarkable. XR/XR chest 1V IMPRESSION: No acute cardiopulmonary process.
[2022-07-26 19:44] VITALS: BP 132/69; PULSE 149; RESP 29; O2SAT 97; BMI 39.2
--- NOTE | 2022-07-26 19:50 | MHC.EDTECH ---
PATIENT CAME IN VIA [facility] ,PATIENT WAS HOOKED UP TO HOME APPLIANCE TECH ,VITALS SIGN TAKEN .
--- NOTE | 2022-07-26 20:02 | PC.NURSE ---
Addendum entered by Renate Duenas 07/26/22 20:04: light purple/blue around the lac on R lower leg Original Note: pt resting quietly no respiratory distress aox4 R lower leg lac weeping pt states it occurred 2 days ago at [facility] cut on a broken part of a cart
[2022-07-26 21:12] VITALS: PULSE 144; O2SAT 96
[2022-07-26] MEDS: levalbuterol HCL 1.25 MG/3 ML VIAL.NEB 5 MG INHALE (21:12)
[2022-07-26 21:28] LABS: Basophils Absolute Auto 0.1 X10*3/uL (0.0-0.2); Basophils Percent Auto 0.2 % (0-2); Eosinophils Percent Auto 0.1 % (0-4); Hematocrit 41.4 % (37.0-47.0); Hemoglobin 12.9 g/dl (12.0-16.0); Imm Gran Abs Auto 0.23 X10*3/uL (0.00-0.03); Imm Gran Pct Auto 0.9 % (0.0-0.4); Lymphocytes Absolute Auto 0.5 X10*3/uL (1.2-4.9); Lymphocytes Percent Auto 1.8 % (20-40); MANUAL DIFF FLAG SCAN; Mean Corpuscular HGB Conc 31.2 g/dl (31.0-35.0); Mean Corpuscular Hemoglobin 29.1 pg (27.0-33.0); Mean Corpuscular Volume 93.2 fL (80.0-98.0); Mean Platelet Volume 8.5 fL (9.4-12.3); Monocytes Absolute Auto 1.4 X10*3/uL (0.1-1.2); Monocytes Percent Auto 5.3 % (2-11); Neutrophils Absolute Auto 24.4 x10*3/uL (2.0-8.3); Neutrophils Percent Auto 91.7 % (45-73); Platelet Count 284 X10*3/uL (160-400); Red Blood Count 4.44 X10*6/uL (4.20-5.50); Red Cell Distribution Width 13.7 % (11.0-16.0); SCAN SMEAR FLAG 1; White Blood Count 26.6 X10*3/uL (4.8-10.8)
[2022-07-26 21:46] LABS: Anion Gap 13 (12-20); Blood Urea Nitrogen 25 mg/dL (9-16); Calcium 9.7 mg/dL (8.4-10.2); Carbon Dioxide 31 mmol/L (22-29); Chloride 99 mmol/L (96-108); Creatinine Clr Calc Pharmacy 99.8; Estimated Glomerular Filt Rate > 60; Glucose Random 219 mg/dL (60-115); Potassium 3.8 mmol/L (3.3-5.1); Sodium 139 mmol/L (135-145)
[2022-07-26 21:51] LABS: SLIDE REVIEW VERIFIED
[2022-07-26 22:00] VITALS: BP 122/79; PULSE 133; RESP 20; TEMP 38; O2SAT 96
--- NOTE | 2022-07-26 22:47 | ED_ITS ---
HPI - SOB/Dyspnea General Chief Complaint: Dyspnea Stated Complaint: SOB Time Seen by Provider: 07/26/22 19:27 Source: patient Mode of arrival: EMS Limitations: no limitations History of Present Illness HPI Narrative: Patient's COPD on home oxygen with frequent ED visits for shortness of breath been feeling increased shortness for for last couple days got worse in last 24 hours ET CO2 60 received nebulizing treatment IV steroids and magnesium by EMS on arrival patient was saturating 97% on 3 L nasal cannula at low temperature 100.4 degrees patient denies any fever or chills cough is mostly dry Related Data Home Medications Medication Instructions Recorded Confirmed albuterol sulfate 90 mcg/actuation 2 puff inhalation Q4H PRN 12/30/19 06/28/22 aerosol inhaler (ProAir HFA) Shortness Of Breath Or Wheezing loratadine 10 mg tablet (Claritin) 10 mg PO DAILY 12/30/19 06/28/22 montelukast 10 mg tablet 10 mg PO BEDTIME 12/30/19 06/28/22 diltiazem HCl 360 mg capsule,24 360 mg PO DAILY 11/16/20 06/28/22 hr,extended release (Tiadylt ER) roflumilast 500 mcg tablet 500 mcg PO DAILY 11/16/20 06/28/22 (Daliresp) rosuvastatin 5 mg tablet 5 mg PO BEDTIME 11/16/20 06/28/22 insulin lispro 100 unit/mL See Protocol subcut TIDAC 12/14/20 06/28/22 subcutaneous solution (Humalog U-100 Insulin) metformin 500 mg tablet,extended 1,000 mg PO BID 05/18/21 06/28/22 release 24 hr ergocalciferol (vitamin D2) 1,250 1,250 mcg PO QWEEK 06/06/21 06/28/22 mcg (50,000 unit) capsule methadone 10 mg/mL oral concentrate 50 mg PO DAILY 06/06/21 06/30/22 lisinopril 40 mg tablet 40 mg PO DAILY 07/30/21 06/28/22 hydralazine 25 mg tablet 25 mg PO TID 11/02/21 06/28/22 insulin lispro 100 unit/mL 4 unit subcut TIDAC 11/02/21 06/28/22 subcutaneous solution omeprazole 40 mg capsule,delayed 40 mg PO DAILY@0630 11/02/21 06/28/22 release clonazepam 1 mg tablet 1 mg PO BID PRN Anxiety 06/28/22 06/28/22 ibuprofen 600 mg tablet 600 mg PO Q8H 06/28/22 06/28/22 prednisone 10 mg tablet 30 mg PO DAILY 06/28/22 06/28/22 Previous Rx's Medication Instructions Recorded budesonide 0.5 mg/2 mL suspension 0.5 mg (2 mL) inhalation BID #120 07/24/21 for nebulization mL ipratropium 0.5 mg-albuterol 3 mg 3 ml PO Q4H PRN for wheezing #540 12/20/21 (2.5 mg base)/3 mL nebulization mL soln salmeterol 50 mcg/dose blister 1 inh inhalation RBID 30 days #60 01/05/22 powder for inhalation (Serevent ea Diskus) simethicone 80 mg chewable tablet 80 mg PO QIDWMHS PRN Abdominal 01/05/22 (Gas Relief (simethicone)) Distention #30 tabs insulin glargine 100 unit/mL 35 unit (0.35 mL) subcut BEDTIME 02/18/22 subcutaneous solution (Lantus #10 mL U-100 Insulin) theophylline 450 mg 450 mg PO Q12H 30 days #60 tabs 05/08/22 tablet,extended release,12 hr diclofenac potassium 50 mg tablet 50 mg PO BID 30 days #60 tabs 05/16/22 arformoterol 15 mcg/2 mL solution 2 ml inhalation Q12H 30 days #120 06/07/22 for nebulization (Brovana) mL prednisone 10 mg tablet See Taper PO DIRECTED #30 tabs 06/30/22 tiotropium bromide 18 mcg capsule 1 cap inhalation DAILY #30 ea 07/09/22 with inhalation device (Spiriva with HandiHaler) levofloxacin 500 mg tablet 500 mg PO DAILY 8 days #8 tabs 07/10/22 gabapentin 300 mg capsule 300 mg PO BID #60 caps 07/23/22 Allergies Allergy/AdvReac Type Severity Reaction Status Date / Time No Known Allergies Allergy Verified 05/27/22 10:15 [No Known Allergies*] Review of Systems Review of Systems: Yes all other systems are reviewed and are negative PMFSH Past Medical History Medical History Abdominal pain Abnormal chest x-ray Acute respiratory failure Aspiration into airway Asthma-COPD overlap syndrome Cellulitis Chronic constipation Chronic respiratory failure Chronic respiratory failure Congestive heart failure COPD (chronic obstructive pulmonary disease) COPD exacerbation COPD mixed type Cor pulmonale Diabetes mellitus Essential hypertension Hyperlipidemia, unspecified Hypertensive cardiovascular disease Hypogammaglobulinemia Leukocytosis Limb swelling Morbid obesity Morbid obesity Opioid dependence CHITO (obstructive sleep apnea) Poor dentition Pulmonary congestion Pulmonary nodule Rib fractures Status asthmaticus with COPD (chronic obstructive pulmonary disease) Tobacco abuse Type 2 diabetes mellitus Type 2 diabetes mellitus with unspecified complications Vomiting Surgical History H/O tubal ligation Family History Family History Father Diabetes Other Asthma Social History Social History Household Members: Children Household Members Other:: daughter Housing: Apartment Do you presently have visiting nurse or other home services: Yes Unable to assess alcohol history related to: Unknown Alcohol intake: never Patient Tobacco Use Status: Former Tobacco user Quit Date: February 2022 Tobacco use type: Cigarette Cigarettes Per Day: 1 Years Smoked: 35 Smoked in Last 30 Days: No e-Cigarette/Vaping Use: Currently Using Second Hand Smoke Exposure: No Use of substances other than those prescribed or required for medical reasons: No Substance Use Type: Opiates Advance Directives: Yes Advance Directives on File: Yes Advance Directives Date on File: 06/12/21 Patient : No service: No Current occupational status: unemployed and disabled Physical Exam Vital Signs: Vital Signs: Last Vital Signs Temp 100.1 F 07/27/22 00:29 Pulse 124 H 07/27/22 00:00 Resp 20 07/27/22 00:00 BP 134/53 L 07/27/22 00:00 Pulse Ox 96 07/27/22 00:00 O2 Del Method Nasal Cannula 07/27/22 00:00 O2 Flow Rate 3 07/27/22 00:00 Oxygen Flow Rate 3 07/26/22 19:44 BMI result Body Mass Index 39.2 Appearance: Alert. Oriented X3. Moderate respiratory distress Eyes: PERRLA, No Nystagmus ENT: Pharynx normal. Oral Mucosa moist Neck: Normal inspection. Neck supple. CVS: Sinus tachycardia, no murmur rub or gallop, Pulses normal. Respiratory: Moderate respiratory distress. Equal air entry bilateral, bi lateral wheezing Abdomen: Soft and nontender. Bowel sounds are present, no mass palpable, no CVA tenderness Skin: Skin warm and dry. Normal skin color. Normal skin turgor. Extremities: No lower extremity edema. No calf tenderness Neuro: Oriented X 3. No motor deficit. Medications Administered Discontinued Medications Generic Name Dose Route Start Last Admin Trade Name Freq PRN Reason Stop Dose Admin Acetaminophen 650 mg 07/26/22 22:50 07/26/22 23:02 Acetaminophen 325 Mg Tablet PO 07/26/22 22:51 650 mg ONCE ONE Administration Insulin Glargine 45 unit 07/26/22 22:54 07/26/22 23:02 Insulin Glargine,Hum.Rec.Anlog 100 Unit/Ml 10 Ml Vial SUBCUT 07/26/22 22:55 45 unit ONCE ONE Administration Levalbuterol HCl 5 mg 07/26/22 19:38 07/26/22 21:12 Levalbuterol Hcl 1.25 Mg/3 Ml Vial.Neb INHALE 07/26/22 19:39 5 mg ONCE ONE Administration Medical Decision Making Medical Decision Making [facility] Narrative: Patient felt better after nebulizing treatment saturating 92 and 96% on 3 L of oxygen discharge patient home patient does have oxygen at home nebulizing treatment patient is on prednisone likely the cause for leukocytosis chest x-ray negative no pneumonia COVID and influenza also negative Lab Data [facility] Lab Attestation statement: I reviewed the patient's lab results. 07/26/22 21:20 07/26/22 21:20 Labs: Lab Results 07/26/22 07/26/22 07/26/22 Range/Units 21:20 21:20 22:49 WBC 26.6 H (4.8-10.8) X10*3/uL RBC 4.44 (4.20-5.50) X10*6/uL Hgb 12.9 (12.0-16.0) g/dl Hct 41.4 (37.0-47.0) % MCV 93.2 (80.0-98.0) fL MCH 29.1 (27.0-33.0) pg MCHC 31.2 (31.0-35.0) g/dl RDW 13.7 (11.0-16.0) % Plt Count 284 (160-400) X10*3/uL MPV 8.5 L (9.4-12.3) fL Immature Gran % (Auto) 0.9 H (0.0-0.4) % Neut % (Auto) 91.7 H (45-73) % Lymph % (Auto) 1.8 L (20-40) % Dade % (Auto) 5.3 (2-11) % Eos % (Auto) 0.1 (0-4) % Baso % (Auto) 0.2 (0-2) % Lymph # (Auto) 0.5 L (1.2-4.9) X10*3/uL Dade # (Auto) 1.4 H (0.1-1.2) X10*3/uL Eos # (Auto) 0.0 (0.0-0.4) X10*3/uL Baso # (Auto) 0.1 (0.0-0.2) X10*3/uL Abs Immat Gran (auto) 0.23 H (0.00-0.03) X10*3/uL Absolute Neuts (auto) 24.4 H (2.0-8.3) x10*3/uL Absolute Nucleated RBC 0.000 (0.0-0.012) X10*3/uL Nucleated RBC % (auto) 0.0 (0.0-0.2) /100WBC Smear Tech's Comments VERIFIED Sodium 139 (135-145) mmol/L Potassium 3.8 (3.3-5.1) mmol/L Chloride 99 (96-108) mmol/L Carbon Dioxide 31 H (22-29) mmol/L Anion Gap 13 (12-20) BUN 25 H (9-16) mg/dL Creatinine 0.69 (0.5-1.4) mg/dL Estim Creat Clear Calc 99.8 Estimated GFR > 60 POC Glucose 246 H (60-115) mg/dL Random Glucose 219 H (60-115) mg/dL Calcium 9.7 D (8.4-10.2) mg/dL COVID-19 (PAPO) (Negative) COVID-19 Clin Com Influenza Type A (ISMAEL) (Negative) Influenza Type B (ISMAEL) (Negative) Influenza A & B Note 07/26/22 07/26/22 Range/Units 23:13 23:13 WBC (4.8-10.8) X10*3/uL RBC (4.20-5.50) X10*6/uL Hgb (12.0-16.0) g/dl Hct (37.0-47.0) % MCV (80.0-98.0) fL MCH (27.0-33.0) pg MCHC (31.0-35.0) g/dl RDW (11.0-16.0) % Plt Count (160-400) X10*3/uL MPV (9.4-12.3) fL Immature Gran % (Auto) (0.0-0.4) % Neut % (Auto) (45-73) % Lymph % (Auto) (20-40) % Dade % (Auto) (2-11) % Eos % (Auto) (0-4) % Baso % (Auto) (0-2) % Lymph # (Auto) (1.2-4.9) X10*3/uL Dade # (Auto) (0.1-1.2) X10*3/uL Eos # (Auto) (0.0-0.4) X10*3/uL Baso # (Auto) (0.0-0.2) X10*3/uL Abs Immat Gran (auto) (0.00-0.03) X10*3/uL Absolute Neuts (auto) (2.0-8.3) x10*3/uL Absolute Nucleated RBC (0.0-0.012) X10*3/uL Nucleated RBC % (auto) (0.0-0.2) /100WBC Smear Tech's Comments Sodium (135-145) mmol/L Potassium (3.3-5.1) mmol/L Chloride (96-108) mmol/L Carbon Dioxide (22-29) mmol/L Anion Gap (12-20) BUN (9-16) mg/dL Creatinine (0.5-1.4) mg/dL Estim Creat Clear Calc Estimated GFR POC Glucose (60-115) mg/dL Random Glucose (60-115) mg/dL Calcium (8.4-10.2) mg/dL COVID-19 (PAPO) Negative (Negative) COVID-19 Clin Com See Note Influenza Type A (ISMAEL) Negative (Negative) Influenza Type B (ISMAEL) Negative (Negative) Influenza A & B Note See Note Discharge Plan Discharge Clinical Impression: Acute exacerbation of chronic obstructive airways disease Patient Disposition: Home, Self-Care Instructions: COPD (Chronic Obstructive Pulmonary Disease) (ED) Additional Instructions: Continue prednisone and nebulizing treatment as prescribed by your lung specialist Continue to use although oxygen Follow-up with PCP Prescriptions: No Action ipratropium-albuterol 0.5 mg-3 mg(2.5 mg base)/3 mL solution for nebulization 3 ml PO Q4H PRN (Reason: for wheezing) Qty: 540 6RF diclofenac potassium 50 mg tablet 50 mg PO BID 30 Days Qty: 60 0RF Brovana 15 mcg/2 mL solution for nebulization 2 ml inhalation Q12H 30 Days Qty: 120 11RF Spiriva with HandiHaler 18 mcg capsule, w/inhalation device 1 cap inhalation DAILY Qty: 30 11RF levofloxacin 500 mg tablet 500 mg PO DAILY 8 Days Qty: 8 0RF gabapentin 300 mg capsule 300 mg PO BID Qty: 60 3RF diltiazem HCl [Tiadylt ER] 360 mg capsule,extended release 24 hr 360 mg PO DAILY rosuvastatin 5 mg tablet 5 mg PO BEDTIME roflumilast [Daliresp] 500 mcg tablet 500 mcg PO DAILY insulin lispro [Humalog U-100 Insulin] 100 unit/mL solution See Protocol subcut TIDAC Protocol: Insulin Correction Scale Less than or equal to 110 ---- Give (units): 0 111 to 150 Give (units): 0 151 to 200 Give (units): 2 201 to 250 Give (units): 4 251 to 300 Give (units): 6 301 to 350 Give (units): 8 Greater than 350 Give (units): 10 Call MD if Blood Glucose > : 350 metformin 500 mg tablet extended release 24 hr 1,000 mg PO BID hydralazine 25 mg tablet 25 mg PO TID insulin lispro 100 unit/mL solution 4 unit subcut TIDAC omeprazole 40 mg capsule,delayed release(DR/EC) 40 mg PO DAILY@0630 insulin glargine [Lantus U-100 Insulin] 100 unit/mL solution 35 unit subcut BEDTIME Qty: 10 0RF methadone 10 mg/mL Concentrate 50 mg PO DAILY ergocalciferol (vitamin D2) 1,250 mcg (50,000 unit) capsule 1,250 mcg PO QWEEK lisinopril 40 mg tablet 40 mg PO DAILY Serevent Diskus 50 mcg/dose Blister With Device 1 inh inhalation RBID 30 Days Qty: 60 2RF simethicone [Gas Relief (simethicone)] 80 mg Tablet,Chewable 80 mg PO QIDWMHS PRN (Reason: Abdominal Distention) Qty: 30 0RF clonazepam 1 mg tablet 1 mg PO BID PRN (Reason: Anxiety) ibuprofen 600 mg tablet 600 mg PO Q8H prednisone 10 mg tablet 30 mg PO DAILY prednisone 10 mg tablet See Taper PO DIRECTED Qty: 30 0RF Taper: Prednisone 40 mg daily for 3 Days and 0 Hour 30 mg daily for 3 Days and 0 Hour 20 mg daily for 3 Days and 0 Hour 10 mg daily for 3 Days and 0 Hour Rx Instructions: see taper instructions montelukast 10 mg tablet 10 mg PO BEDTIME albuterol sulfate [ProAir HFA] 90 mcg/actuation HFA aerosol inhaler 2 puff inhalation Q4H PRN (Reason: Shortness Of Breath Or Wheezing) loratadine [Claritin] 10 mg tablet 10 mg PO DAILY budesonide 0.5 mg/2 mL suspension for nebulization 0.5 mg inhalation BID Qty: 120 11RF theophylline 450 mg tablet extended release 12 hr 450 mg PO Q12H 30 Days Qty: 60 6RF Interventions: ED Discharge Assessment Last Done: 07/27/22 01:01 Discharge Date/Time: 07/27/22 01:01
[2022-07-26 22:52] LABS: Glucose, Whole Blood 246 mg/dL (60-115)
[2022-07-26] MEDS: Acetaminophen 325 MG TABLET 650 MG PO (23:02)
[2022-07-26] MEDS: Insulin Glargine,Hum.rec.anlog 100 UNIT/ML 10 ML VIAL 45 UNIT SUBCUT (23:02)
[2022-07-26 23:36] LABS: COVID-19 Test Negative (Negative); IDNOW Serial# 08D9AD1C; IDNOW Serial# BCCEAD1C; Influenza A Negative (Negative); Influenza B2 Negative (Negative)
[2022-07-27] VITALS: BP 134/53; PULSE 124; RESP 20; TEMP 38.1; O2SAT 96
[2022-07-27 00:29] VITALS: TEMP 37.8
--- NOTE | 2022-07-27 00:59 | PC.NURSE ---
Discharge instructions given and explained to pt No respiratory distress, nor sob Able to speak in full sentences Ambulates safely/independently IV cath intact tip intact upon removal All of pt's questions answered
== END 2022-07-27 01:01 | disposition home or self-care (01) ==
PROVIDERS: Emergency Provider Internal Medicine; PCP Family Medicine
DX: J44.1 Chronic obstructive pulmonary disease with (acute) exacerbation (principal); R06.02 Shortness of breath; R50.9 Fever, unspecified; Z20.822 Contact with and (suspected) exposure to COVID-19; E11.9 Type 2 diabetes mellitus without complications; I10 Essential (primary) hypertension; E78.5 Hyperlipidemia, unspecified; F11.20 Opioid dependence, uncomplicated; Z99.81 Dependence on supplemental oxygen; Z79.02 Long term (current) use of antithrombotics/antiplatelets; Z79.4 Long term (current) use of insulin; Z79.899 Other long term (current) drug therapy
CPT/HCPCS: 36415; 71045; 80048; 82947; 85025; 87502; 87635; 93005; 94640; 99284; 99285

== ENCOUNTER 2022-07-28 16:04 | Inpatient (IN) | payer MEDICAID, SELFPAY ==
[2022-07-28] VITALS (19 sets, daily range): BP systolic 60–125; BP diastolic 18–87; PULSE 86–100; RESP 10–23; TEMP 36.6–36.7; O2SAT 94–99; BMI 37.1
--- NOTE | ~2022-07-28 | XR_ITS ---
EXAMINATION: XR CHEST CLINICAL INFORMATION: Shortness of breath COMPARISON: 07/26/2022 TECHNIQUE: Frontal view of the chest was obtained. FINDINGS: Normal symmetric lung volumes. No parenchymal consolidation. No pleural effusion. No pneumothorax. Cardiomediastinal silhouette and pulmonary vascularity are within normal limits. No acute osseous abnormalities. Multiple bilateral healed rib fractures. XR/XR chest 1V IMPRESSION: No acute findings.
--- NOTE | ~2022-07-28 | NM_ITS ---
EXAMINATION: BILIARY TRACT IMAGING STUDY WITH CCK CLINICAL INFORMATION: Bacteremia. Unknown source. Sepsis and abdominal pain. Suspected acalculus cholecystitis.. COMPARISON: Abdominal ultrasound done on 07/29/[address] of the abdomen and pelvis done on 07/28/2022. There. TECHNIQUE: Serial gamma scintillation camera images were obtained over the abdomen for a total observation period of 60 minutes following the intravenous administration of 5 mCi Tc-99m mebrofenin. FINDINGS: There is good concentration of activity in the liver by 5 minutes post injection. Biliary activity is visualized by 15 minutes. The gallbladder is well visualized by 25 minutes. Small bowel is well visualized by 65 minutes. At 60 minutes post radiopharmaceutical injection, a 30-minute infusion of 1.7 micrograms Sincalide was then begun and an additional 40 minutes of images were obtained. There is minimal/no emptying of the gallbladder. By the end of the study there is good clearance of activity from the liver and visualization of diffuse small bowel activity. The calculated gallbladder ejection fraction is 0% (normal gallbladder ejection fraction is greater than 35%). NM/NM hepatobiliary w pharm IMPRESSION: Visualization of the gallbladder is evidence of a patent cystic duct and strong evidence against the diagnosis of acute cholecystitis. The common bile duct is patent. Gallbladder emptying and ejection fraction are abnormal. Liver function appears normal.
--- NOTE | ~2022-07-28 | XR_ITS ---
EXAMINATION: XR CHEST CLINICAL INFORMATION: Shortness of breath COMPARISON: July 28, 2022 and July 26, 2022 TECHNIQUE: AP portable view of the chest was obtained. FINDINGS: There is no evidence of acute parenchymal disease, pneumothorax, or pleural effusion. Heart normal size. No evidence of pulmonary edema. Numerous bilateral healed rib fractures are present. There is an area of question density within the right upper lobe which is associated with fracture deformity. XR/XR chest 1V IMPRESSION: No acute disease.
--- NOTE | ~2022-07-28 | US_ITS ---
EXAMINATION: US ABDOMEN COMPLETE CLINICAL INFORMATION: Bacteremia. Unknown source.. COMPARISON: Previous CT of the abdomen and pelvis from yesterday and abdominal ultrasound June 2020 TECHNIQUE: Real-time imaging of the abdominal viscera. FINDINGS: PANCREAS: The head and body of the pancreas are normal. The tail is not well visualized due to bowel gas. ABDOMINAL AORTA: Not well visualized due to bowel gas. INFERIOR VENA CAVA: Visualized portions are normal. LIVER: Normal. The liver is normal in size. The liver contour is normal. Parenchymal echogenicity is normal. No focal hepatic lesion. There is no intrahepatic biliary duct dilatation seen. GALLBLADDER: The gallbladder is distended 4.5 x 5 x 11 cm No gallstones are seen. There is sludge in the gallbladder. The gallbladder wall is normal. COMMON BILE DUCT: Normal in caliber measuring 0.5 cm in diameter. RIGHT KIDNEY: Normal. No hydronephrosis. No renal calculi or focal parenchymal lesions. The kidney measures 12.8 cm in maximum dimension. LEFT KIDNEY: Normal. No hydronephrosis. No renal calculi or focal parenchymal lesions. The kidney measures 12.8 cm in maximum dimension. SPLEEN: Normal. The spleen measures 11.7 cm in maximum dimension. FREE FLUID: None. US/US abdomen complete IMPRESSION: Distended gallbladder. No gallstone seen. There is sludge in the gallbladder. If there is clinical concern for acalculous cholecystitis, HIDA scan would be recommended. Limited visualization of the pancreas and aorta.
--- NOTE | ~2022-07-28 | CT_ITS ---
EXAMINATION: CT ABDOMEN AND PELVIS WITHOUT CONTRAST CLINICAL INFORMATION: Hypotension. Sepsis and abdominal pain. COMPARISON: 06/29/2022 TECHNIQUE: Multidetector volumetric imaging was performed from the superior aspect of the liver through the pubic symphysis. Sagittal and coronal reformatted images were obtained on the technologist's workstation. This CT examination was performed using dose optimization techniques as appropriate, variously including the following: *Automated exposure control *Adjustment of mA and/or kV according to patient size (this includes techniques or standardized protocols for targeted exams where dose is matched to indication/reason for exam; i.e. extremities or head) *Use of iterative reconstruction technique DLP: 672 mGy-cm FINDINGS: LUNG BASES: Cardiomegaly. Clear lungs. LIVER, GALLBLADDER, AND BILIARY TREE: The liver is normal in size, shape, and attenuation. No focal hepatic lesion or biliary ductal dilatation is present. The gallbladder is unremarkable with no evidence of radiopaque gallstones, gallbladder wall thickening, or obvious pericholecystic inflammatory changes. PANCREAS: Unremarkable. SPLEEN: Unremarkable. ADRENAL GLANDS: Unremarkable. KIDNEYS AND URETERS: The kidneys are normal in size, shape, and attenuation. No hydronephrosis, hydroureter, or calculi seen. No perinephric stranding. BLADDER: Unremarkable. GASTROINTESTINAL TRACT: The small and large bowel are unremarkable. The appendix is unremarkable. ABDOMINAL WALL: Diastases of the rectus abdominis without ct hernia. LYMPH NODES: Normal. VASCULAR: Aorta is atherosclerotic but normal caliber. PELVIC VISCERA: Uterus and adnexa unremarkable. OSSEOUS STRUCTURES: Compression deformities redemonstrated at T12, L1, L3 and L4, stable from prior. Discogenic degenerative disease present throughout the imaged spine with accompanying vacuum disc phenomenon. CT/CT abdomen pelvis wo IV con IMPRESSION: * No acute findings within the abdomen or pelvis to explain the patient's symptomatology. * Chronic findings as above.
[2022-07-28 16:52] LABS: Hematocrit 43.7 % (37.0-47.0); Hemoglobin 13.7 g/dl (12.0-16.0); Mean Corpuscular HGB Conc 31.4 g/dl (31.0-35.0); Mean Corpuscular Hemoglobin 28.7 pg (27.0-33.0); Mean Corpuscular Volume 91.4 fL (80.0-98.0); Mean Platelet Volume 8.9 fL (9.4-12.3); Platelet Count 280 X10*3/uL (160-400); Red Blood Count 4.78 X10*6/uL (4.20-5.50); Red Cell Distribution Width 13.6 % (11.0-16.0)
[2022-07-28 16:56] LABS: Alanine Aminotransferase 17 U/L (0-31); Albumin Level 3.6 g/dL (3.5-5.0); Alkaline Phosphatase 92 U/L (39-117); Anion Gap 24 (12-20); Aspartate Amino Transferase 17 U/L (5-31); Bilirubin Total 0.2 mg/dL (0.0-1.0); Blood Urea Nitrogen 38 mg/dL (9-16); Calcium 8.6 mg/dL (8.4-10.2); Carbon Dioxide 27 mmol/L (22-29); Chloride 89 mmol/L (96-108); Creatinine Clr Calc Pharmacy 20.5; Estimated Glomerular Filt Rate 16; Glucose Random 142 mg/dL (60-115); Magnesium 2.4 mg/dL (1.6-2.6); Potassium 3.7 mmol/L (3.3-5.1); Sodium 136 mmol/L (135-145); Total Protein 6.6 g/dL (6.5-8.0)
[2022-07-28 17:02] LABS: WBC ABN SCTR FOR CBC 1; White Blood Count 9.9 X10*3/uL (4.8-10.8)
--- NOTE | 2022-07-28 17:02 | ED_ITS ---
HPI - Abdominal Pain General Chief Complaint: Abdominal Pain Stated Complaint: NVD Time Seen by Provider: 07/28/22 16:39 Source: patient and EMS Mode of arrival: EMS Limitations: no limitations History of Present Illness HPI narrative: Patient with history of COPD/asthma overlap chronic respiratory failure, CHF, hy pertension, diabetes was seen here on 07/26 for shortness of breath comes here for nausea vomiting diarrhea since then. Patient unable to eat much for last 2 days having multiple episodes of vomiting and diarrhea watery no fever or chills complaining of diffuse abdominal pain on arrival patient's blood pressure was 60/24 patient is on steroids Related Data Home Medications Medication Instructions Recorded Confirmed albuterol sulfate 90 mcg/actuation 2 puff inhalation Q4H PRN 12/30/19 06/28/22 aerosol inhaler (ProAir HFA) Shortness Of Breath Or Wheezing loratadine 10 mg tablet (Claritin) 10 mg PO DAILY 12/30/19 06/28/22 montelukast 10 mg tablet 10 mg PO BEDTIME 12/30/19 06/28/22 diltiazem HCl 360 mg capsule,24 360 mg PO DAILY 11/16/20 06/28/22 hr,extended release (Tiadylt ER) roflumilast 500 mcg tablet 500 mcg PO DAILY 11/16/20 06/28/22 (Daliresp) rosuvastatin 5 mg tablet 5 mg PO BEDTIME 11/16/20 06/28/22 insulin lispro 100 unit/mL See Protocol subcut TIDAC 12/14/20 06/28/22 subcutaneous solution (Humalog U-100 Insulin) metformin 500 mg tablet,extended 1,000 mg PO BID 05/18/21 06/28/22 release 24 hr ergocalciferol (vitamin D2) 1,250 1,250 mcg PO QWEEK 06/06/21 06/28/22 mcg (50,000 unit) capsule methadone 10 mg/mL oral concentrate 50 mg PO DAILY 06/06/21 06/30/22 lisinopril 40 mg tablet 40 mg PO DAILY 07/30/21 06/28/22 hydralazine 25 mg tablet 25 mg PO TID 11/02/21 06/28/22 insulin lispro 100 unit/mL 4 unit subcut TIDAC 11/02/21 06/28/22 subcutaneous solution omeprazole 40 mg capsule,delayed 40 mg PO DAILY@0630 11/02/21 06/28/22 release clonazepam 1 mg tablet 1 mg PO BID PRN Anxiety 06/28/22 06/28/22 ibuprofen 600 mg tablet 600 mg PO Q8H 06/28/22 06/28/22 prednisone 10 mg tablet 30 mg PO DAILY 06/28/22 06/28/22 Previous Rx's Medication Instructions Recorded budesonide 0.5 mg/2 mL suspension 0.5 mg (2 mL) inhalation BID #120 07/24/21 for nebulization mL ipratropium 0.5 mg-albuterol 3 mg 3 ml PO Q4H PRN for wheezing #540 12/20/21 (2.5 mg base)/3 mL nebulization mL soln salmeterol 50 mcg/dose blister 1 inh inhalation RBID 30 days #60 01/05/22 powder for inhalation (Serevent ea Diskus) simethicone 80 mg chewable tablet 80 mg PO QIDWMHS PRN Abdominal 01/05/22 (Gas Relief (simethicone)) Distention #30 tabs insulin glargine 100 unit/mL 35 unit (0.35 mL) subcut BEDTIME 02/18/22 subcutaneous solution (Lantus #10 mL U-100 Insulin) theophylline 450 mg 450 mg PO Q12H 30 days #60 tabs 05/08/22 tablet,extended release,12 hr diclofenac potassium 50 mg tablet 50 mg PO BID 30 days #60 tabs 05/16/22 arformoterol 15 mcg/2 mL solution 2 ml inhalation Q12H 30 days #120 06/07/22 for nebulization (Brovana) mL prednisone 10 mg tablet See Taper PO DIRECTED #30 tabs 06/30/22 tiotropium bromide 18 mcg capsule 1 cap inhalation DAILY #30 ea 07/09/22 with inhalation device (Spiriva with HandiHaler) levofloxacin 500 mg tablet 500 mg PO DAILY 8 days #8 tabs 07/10/22 gabapentin 300 mg capsule 300 mg PO BID #60 caps 07/23/22 Allergies Allergy/AdvReac Type Severity Reaction Status Date / Time No Known Allergies Allergy Verified 05/27/22 10:15 [No Known Allergies*] Review of Systems Review of Systems Yes all other systems are reviewed and are negative PMFSH Past Medical History Medical History Abdominal pain Abnormal chest x-ray Acute respiratory failure Aspiration into airway Asthma-COPD overlap syndrome Cellulitis Chronic constipation Chronic respiratory failure Chronic respiratory failure Congestive heart failure COPD (chronic obstructive pulmonary disease) COPD exacerbation COPD mixed type Cor pulmonale Diabetes mellitus Essential hypertension Hyperlipidemia, unspecified Hypertensive cardiovascular disease Hypogammaglobulinemia Leukocytosis Limb swelling Morbid obesity Morbid obesity Opioid dependence CHITO (obstructive sleep apnea) Poor dentition Pulmonary congestion Pulmonary nodule Rib fractures Status asthmaticus with COPD (chronic obstructive pulmonary disease) Tobacco abuse Type 2 diabetes mellitus Type 2 diabetes mellitus with unspecified complications Vomiting Surgical History H/O tubal ligation Family History Family History Father Diabetes Other Asthma Social History Social History Household Members: Children Household Members Other:: daughter Housing: Apartment Do you presently have visiting nurse or other home services: Yes Unable to assess alcohol history related to: Unknown Alcohol intake: never Patient Tobacco Use Status: Former Tobacco user Quit Date: February 2022 Tobacco use type: Cigarette Cigarettes Per Day: 1 Years Smoked: 35 e-Cigarette/Vaping Use: Currently Using Second Hand Smoke Exposure: No Substance Use Type: Opiates Advance Directives: Yes Advance Directives on File: Yes Advance Directives Date on File: 06/12/21 service: No Current occupational status: unemployed and disabled Physical Exam ED Vital Signs: Vital Signs - 24 hr 07/28/22 16:28 07/28/22 16:50 07/28/22 16:57 Temperature 97.9 F Pulse Rate 100 97 98 Respiratory Rate 20 16 Blood Pressure 86/47 L 125/87 60/24 L Pulse Oximetry 99 96 Oxygen Delivery Method Nasal Cannula Nasal Cannula Oxygen Flow Rate 2 07/28/22 17:00 07/28/22 17:11 07/28/22 17:32 Temperature Pulse Rate Respiratory Rate Blood Pressure 61/18 L 62/32 L 103/48 L Pulse Oximetry Oxygen Delivery Method Oxygen Flow Rate 07/28/22 17:57 07/28/22 18:19 07/28/22 19:16 Temperature 97.9 F 98 F Pulse Rate 86 87 86 Respiratory Rate 18 12 12 Blood Pressure 105/44 L 95/38 L 105/48 L Pulse Oximetry 96 95 98 Oxygen Delivery Method Nasal Cannula Nasal Cannula Nasal Cannula Oxygen Flow Rate 2 4 2 07/28/22 20:02 07/28/22 20:00 07/28/22 21:14 Temperature 98 F 98.0 F 97.8 F Pulse Rate 87 91 93 Respiratory Rate 12 14 13 Blood Pressure 105/45 L 91/48 L 86/48 L Pulse Oximetry 98 94 95 Oxygen Delivery Method Nasal Cannula Nasal Cannula Nasal Cannula Oxygen Flow Rate 3 3 3 07/28/22 21:30 07/28/22 21:34 07/28/22 21:39 Temperature Pulse Rate 90 88 Respiratory Rate 18 18 18 Blood Pressure 92/50 L Pulse Oximetry 99 Oxygen Delivery Method Nasal Cannula Oxygen Flow Rate 3 07/28/22 21:48 07/28/22 22:28 07/28/22 22:31 Temperature 98 F Pulse Rate 91 94 92 Respiratory Rate 23 H 10 L 23 H Blood Pressure 113/48 L 110/50 L 110/50 L Pulse Oximetry 96 97 99 Oxygen Delivery Method BiPAP BiPAP BiPAP Oxygen Flow Rate 07/28/22 23:36 Temperature Pulse Rate 93 Respiratory Rate 23 H Blood Pressure 96/58 L Pulse Oximetry 99 Oxygen Delivery Method BiPAP Oxygen Flow Rate BMI result Body Mass Index 37.1 Appearance: Alert. Oriented X3. In mild distress. Eyes: PERRLA, No Nystagmus ENT: Pharynx normal. Oral Mucosa moist Neck: Normal inspection. Neck supple. CVS: Normal heart rate and rhythm. Pulses normal. Respiratory: No respiratory distress. Equal air entry bilateral, no wheezin g/rales/rhonchi Abdomen: Soft , diffuse tenderness no rebound tenderness guarding. Bowel sounds are present, no mass palpable, no CVA tenderness Skin: Skin warm and dry. Normal skin color. Normal skin turgor. Extremities: No lower extremity edema. No calf tenderness Neuro: Oriented X 3. No motor deficit. No sensory deficit.No cerebellar signs , cranial nerves II-XII intact Medical Decision Making Medical Decision Making MDM Narrative: Patient with significant comorbid conditions COPD/asthma overlap chronic respiratory failure came with acute vomiting and diarrhea with significant volum e loss and VERONIKA elevated lactic acid elevated creatinine and hypertension meeting the criteria for sepsis as was given IV fluids 30 mL/kilogram and IV antibiotics CT scan of the abdomen was done which was negative patient improved after IV hydration blood pressure improved patient was in respiratory failure BiPAP was applied which she uses in the nighttime and vitals improved will admit patient to medical floor Differential Diagnosis Sepsis/colitis/respiratory failure/gastroenteritis/UTI Consult Healthcare Provider Management of the patient was discussed with: Hospitalist Lab Data [facility] Lab Attestation statement: I reviewed the patient's lab results. 07/28/22 16:29 07/28/22 16:29 Labs: Lab Results 07/28/22 07/28/22 07/28/22 Range/Units 16:29 16:29 16:29 WBC 9.9 (4.8-10.8) X10*3/uL RBC 4.78 (4.20-5.50) X10*6/uL Hgb 13.7 (12.0-16.0) g/dl Hct 43.7 (37.0-47.0) % MCV 91.4 (80.0-98.0) fL MCH 28.7 (27.0-33.0) pg MCHC 31.4 (31.0-35.0) g/dl RDW 13.6 (11.0-16.0) % Plt Count 280 (160-400) X10*3/uL MPV 8.9 L (9.4-12.3) fL Immature Gran % (Auto) Cancelled Neut % (Auto) Cancelled Lymph % (Auto) Cancelled [place] % (Auto) Cancelled Eos % (Auto) Cancelled Baso % (Auto) Cancelled Lymph # (Auto) Cancelled [place] # (Auto) Cancelled Eos # (Auto) Cancelled Baso # (Auto) Cancelled Abs Immat Gran (auto) Cancelled Absolute Neuts (auto) Cancelled Absolute Nucleated RBC 0.000 (0.0-0.012) X10*3/uL Nucleated RBC % (auto) 0.0 (0.0-0.2) /100WBC Neutrophils % (Manual) 27 L (45-73) % Band Neutrophils % 47 H (3-5) % Lymphocytes % (Manual) 4 L (20-40) % Monocytes % (Manual) 9 (2-11) % Metamyelocytes % 9 % Myelocytes % 4 % Abs Neuts (Manual) 7.3 (2.0-8.3) X10*3/uL Lymphocytes # (Manual) 0.4 L (1.2-4.9) X10*3/uL Monocytes # (Manual) 0.9 (0.1-1.2) X10*3/uL Metamyelocytes # 0.9 X10*3/uL Myelocytes # 0.4 X10*/uL Toxic Vacuolation PRESENT Platelet Estimate NORMAL (NORMAL) Plt Morphology Comment NORMAL RBC Morphology NORMAL VBG pH (7.32-7.43) VBG pCO2 mmHg VBG pO2 mmHg VBG HCO3 (22-26) mmol/L VBG O2 Saturation % VBG Base Excess mmol/L Sodium 136 (135-145) mmol/L Potassium 3.7 (3.3-5.1) mmol/L Chloride 89 L (96-108) mmol/L Carbon Dioxide 27 (22-29) mmol/L Anion Gap 24 H (12-20) BUN 38 H (9-16) mg/dL Creatinine 3.00 H (0.5-1.4) mg/dL Estim Creat Clear Calc 20.5 Estimated GFR 16 Random Glucose 142 H (60-115) mg/dL Lactic Acid (0.5-2.0) mmol/L Lactic Acid F/U @ 2Hr (0.5-2.0) mmol/L Lactic Acid F/U @ 4Hr (0.5-2.0) mmol/L Calcium 8.6 D (8.4-10.2) mg/dL Magnesium 2.4 (1.6-2.6) mg/dL Total Bilirubin 0.2 (0.0-1.0) mg/dL AST 17 (5-31) U/L ALT 17 (0-31) U/L Alkaline Phosphatase 92 (39-117) U/L Troponin I High Sens 65.9 H* D (<3.5-17.0) ng/L Total Protein 6.6 (6.5-8.0) g/dL Albumin 3.6 (3.5-5.0) g/dL Lipase 6 L (8-78) U/L Urine Color Urine Appearance Urine pH (5.0-9.0) Ur Specific [place] (1.005-1.025) Urine Protein (Neg-Trace) mg/dL Urine Glucose (UA) (Negative) mg/dL Urine Ketones (Negative) mg/dL Urine Blood (Negative) Urine Nitrite (Negative) Ur Leukocyte Esterase (Negative) Urine RBC (0-2) /HPF Urine WBC (0-5) /HPF Ur Squamous Epith Cells (0-2) /HPF Urine Bacteria (None Seen) Hyaline Casts (0-2) /LPF 07/28/22 07/28/22 07/28/22 Range/Units 17:26 19:38 20:32 WBC (4.8-10.8) X10*3/uL RBC (4.20-5.50) X10*6/uL Hgb (12.0-16.0) g/dl Hct (37.0-47.0) % MCV (80.0-98.0) fL MCH (27.0-33.0) pg MCHC (31.0-35.0) g/dl RDW (11.0-16.0) % Plt Count (160-400) X10*3/uL MPV (9.4-12.3) fL Immature Gran % (Auto) Neut % (Auto) Lymph % (Auto) [place] % (Auto) Eos % (Auto) Baso % (Auto) Lymph # (Auto) [place] # (Auto) Eos # (Auto) Baso # (Auto) Abs Immat Gran (auto) Absolute Neuts (auto) Absolute Nucleated RBC (0.0-0.012) X10*3/uL Nucleated RBC % (auto) (0.0-0.2) /100WBC Neutrophils % (Manual) (45-73) % Band Neutrophils % (3-5) % Lymphocytes % (Manual) (20-40) % Monocytes % (Manual) (2-11) % Metamyelocytes % % Myelocytes % % Abs Neuts (Manual) (2.0-8.3) X10*3/uL Lymphocytes # (Manual) (1.2-4.9) X10*3/uL Monocytes # (Manual) (0.1-1.2) X10*3/uL Metamyelocytes # X10*3/uL Myelocytes # X10*/uL Toxic Vacuolation Platelet Estimate (NORMAL) Plt Morphology Comment RBC Morphology VBG pH (7.32-7.43) VBG pCO2 mmHg VBG pO2 mmHg VBG HCO3 (22-26) mmol/L VBG O2 Saturation % VBG Base Excess mmol/L Sodium 138 (135-145) mmol/L Potassium 4.2 (3.3-5.1) mmol/L Chloride 96 (96-108) mmol/L Carbon Dioxide 26 (22-29) mmol/L Anion Gap 20 (12-20) BUN 39 H (9-16) mg/dL Creatinine 2.93 H (0.5-1.4) mg/dL Estim Creat Clear Calc 21.0 Estimated GFR 17 Random Glucose 183 H (60-115) mg/dL Lactic Acid 2.3 H* (0.5-2.0) mmol/L Lactic Acid F/U @ 2Hr 2.1 H* (0.5-2.0) mmol/L Lactic Acid F/U @ 4Hr (0.5-2.0) mmol/L Calcium 7.2 L D (8.4-10.2) mg/dL Magnesium (1.6-2.6) mg/dL Total Bilirubin (0.0-1.0) mg/dL AST (5-31) U/L ALT (0-31) U/L Alkaline Phosphatase (39-117) U/L Troponin I High Sens (<3.5-17.0) ng/L Total Protein (6.5-8.0) g/dL Albumin (3.5-5.0) g/dL Lipase (8-78) U/L Urine Color Urine Appearance Urine pH (5.0-9.0) Ur Specific [place] (1.005-1.025) Urine Protein (Neg-Trace) mg/dL Urine Glucose (UA) (Negative) mg/dL Urine Ketones (Negative) mg/dL Urine Blood (Negative) Urine Nitrite (Negative) Ur Leukocyte Esterase (Negative) Urine RBC (0-2) /HPF Urine WBC (0-5) /HPF Ur Squamous Epith Cells (0-2) /HPF Urine Bacteria (None Seen) Hyaline Casts (0-2) /LPF 07/28/22 07/28/22 07/28/22 Range/Units 20:34 20:49 23:00 WBC (4.8-10.8) X10*3/uL RBC (4.20-5.50) X10*6/uL Hgb (12.0-16.0) g/dl Hct (37.0-47.0) % MCV (80.0-98.0) fL MCH (27.0-33.0) pg MCHC (31.0-35.0) g/dl RDW (11.0-16.0) % Plt Count (160-400) X10*3/uL MPV (9.4-12.3) fL Immature Gran % (Auto) Neut % (Auto) Lymph % (Auto) [place] % (Auto) Eos % (Auto) Baso % (Auto) Lymph # (Auto) [place] # (Auto) Eos # (Auto) Baso # (Auto) Abs Immat Gran (auto) Absolute Neuts (auto) Absolute Nucleated RBC (0.0-0.012) X10*3/uL Nucleated RBC % (auto) (0.0-0.2) /100WBC Neutrophils % (Manual) (45-73) % Band Neutrophils % (3-5) % Lymphocytes % (Manual) (20-40) % Monocytes % (Manual) (2-11) % Metamyelocytes % % Myelocytes % % Abs Neuts (Manual) (2.0-8.3) X10*3/uL Lymphocytes # (Manual) (1.2-4.9) X10*3/uL Monocytes # (Manual) (0.1-1.2) X10*3/uL Metamyelocytes # X10*3/uL Myelocytes # X10*/uL Toxic Vacuolation Platelet Estimate (NORMAL) Plt Morphology Comment RBC Morphology VBG pH 7.15 L* (7.32-7.43) VBG pCO2 81 mmHg VBG pO2 37 mmHg VBG HCO3 28 H (22-26) mmol/L VBG O2 Saturation 47.0 % VBG Base Excess -2.5 mmol/L Sodium (135-145) mmol/L Potassium (3.3-5.1) mmol/L Chloride (96-108) mmol/L Carbon Dioxide (22-29) mmol/L Anion Gap (12-20) BUN (9-16) mg/dL Creatinine (0.5-1.4) mg/dL Estim Creat Clear Calc Estimated GFR Random Glucose (60-115) mg/dL Lactic Acid (0.5-2.0) mmol/L Lactic Acid F/U @ 2Hr (0.5-2.0) mmol/L Lactic Acid F/U @ 4Hr 1.5 (0.5-2.0) mmol/L Calcium (8.4-10.2) mg/dL Magnesium (1.6-2.6) mg/dL Total Bilirubin (0.0-1.0) mg/dL AST (5-31) U/L ALT (0-31) U/L Alkaline Phosphatase (39-117) U/L Troponin I High Sens (<3.5-17.0) ng/L Total Protein (6.5-8.0) g/dL Albumin (3.5-5.0) g/dL Lipase (8-78) U/L Urine Color Dark Yellow Urine Appearance Turbid Urine pH 5.0 (5.0-9.0) Ur Specific [place] 1.025 (1.005-1.025) Urine Protein 300 (3+) H (Neg-Trace) mg/dL Urine Glucose (UA) 100 H (Negative) mg/dL Urine Ketones Negative (Negative) mg/dL Urine Blood Small (1+) H (Negative) Urine Nitrite Negative (Negative) Ur Leukocyte Esterase Negative (Negative) Urine RBC 11-20 H (0-2) /HPF Urine WBC 6-10 H (0-5) /HPF Ur Squamous Epith Cells >20 (0-2) /HPF Urine Bacteria 1+ (None Seen) Hyaline Casts 0-2 (0-2) /LPF 07/28/22 07/28/22 Range/Units 23:00 23:11 WBC (4.8-10.8) X10*3/uL RBC (4.20-5.50) X10*6/uL Hgb (12.0-16.0) g/dl Hct (37.0-47.0) % MCV (80.0-98.0) fL MCH (27.0-33.0) pg MCHC (31.0-35.0) g/dl RDW (11.0-16.0) % Plt Count (160-400) X10*3/uL MPV (9.4-12.3) fL Immature Gran % (Auto) Neut % (Auto) Lymph % (Auto) [place] % (Auto) Eos % (Auto) Baso % (Auto) Lymph # (Auto) [place] # (Auto) Eos # (Auto) Baso # (Auto) Abs Immat Gran (auto) Absolute Neuts (auto) Absolute Nucleated RBC (0.0-0.012) X10*3/uL Nucleated RBC % (auto) (0.0-0.2) /100WBC Neutrophils % (Manual) (45-73) % Band Neutrophils % (3-5) % Lymphocytes % (Manual) (20-40) % Monocytes % (Manual) (2-11) % Metamyelocytes % % Myelocytes % % Abs Neuts (Manual) (2.0-8.3) X10*3/uL Lymphocytes # (Manual) (1.2-4.9) X10*3/uL Monocytes # (Manual) (0.1-1.2) X10*3/uL Metamyelocytes # X10*3/uL Myelocytes # X10*/uL Toxic Vacuolation Platelet Estimate (NORMAL) Plt Morphology Comment RBC Morphology VBG pH 7.23 L (7.32-7.43) VBG pCO2 58 mmHg VBG pO2 62 mmHg VBG HCO3 24 (22-26) mmol/L VBG O2 Saturation 86.0 % VBG Base Excess -3.5 mmol/L Sodium (135-145) mmol/L Potassium (3.3-5.1) mmol/L Chloride (96-108) mmol/L Carbon Dioxide (22-29) mmol/L Anion Gap (12-20) BUN (9-16) mg/dL Creatinine (0.5-1.4) mg/dL Estim Creat Clear Calc Estimated GFR Random Glucose (60-115) mg/dL Lactic Acid (0.5-2.0) mmol/L Lactic Acid F/U @ 2Hr (0.5-2.0) mmol/L Lactic Acid F/U @ 4Hr (0.5-2.0) mmol/L Calcium (8.4-10.2) mg/dL Magnesium (1.6-2.6) mg/dL Total Bilirubin (0.0-1.0) mg/dL AST (5-31) U/L ALT (0-31) U/L Alkaline Phosphatase (39-117) U/L Troponin I High Sens 24.2 H D (<3.5-17.0) ng/L Total Protein (6.5-8.0) g/dL Albumin (3.5-5.0) g/dL Lipase (8-78) U/L Urine Color Urine Appearance Urine pH (5.0-9.0) Ur Specific [place] (1.005-1.025) Urine Protein (Neg-Trace) mg/dL Urine Glucose (UA) (Negative) mg/dL Urine Ketones (Negative) mg/dL Urine Blood (Negative) Urine Nitrite (Negative) Ur Leukocyte Esterase (Negative) Urine RBC (0-2) /HPF Urine WBC (0-5) /HPF Ur Squamous Epith Cells (0-2) /HPF Urine Bacteria (None Seen) Hyaline Casts (0-2) /LPF ABG Data ABG Results: Respiratory acidosis with respiratory hypoxia Medications Administered Generic Name Dose Route Start Last Admin Trade Name Freq PRN Reason Stop Dose Admin Heparin Sodium (Porcine) 5,000 unit 07/28/22 23:45 07/29/22 00:31 Heparin Sodium,Porcine 5,000 Unit/Ml Vial SUBCUT 5,000 unit Q12H ANA Administration Discontinued Medications Generic Name Dose Route Start Last Admin Trade Name Freq PRN Reason Stop Dose Admin Albuterol Sulfate 2.5 mg/ 0 mg 07/28/22 21:25 07/28/22 21:39 Albuterol/Ipratropium 3 ml INHALE 07/28/22 21:26 1 each ONCE ONE Administration Sodium Chloride 3,000 mls @ 1,000 mls/hr 07/28/22 17:07 07/28/22 20:51 Ns IV 07/28/22 20:06 Infused .Q3H STA Infusion Piperacillin Sod/Tazobactam 50 mls @ 100 mls/hr 07/28/22 17:18 07/28/22 18:12 Sod 3.375 gm/ Sodium Chloride IV 07/28/22 17:47 Infused ONCE ONE Infusion Sodium Chloride 1,000 mls @ 999 mls/hr 07/28/22 21:17 07/28/22 22:26 Ns IV 07/28/22 22:17 Infused .Q1H1M ONE Infusion Methylprednisolone Sodium Succinate 125 mg 07/28/22 17:05 07/28/22 17:10 Methylprednisolone Sod Succ 125 Mg/2 Ml Vial IVPUSH 07/28/22 17:06 125 mg ONCE ONE Administration Ondansetron HCl 4 mg 07/28/22 17:03 07/28/22 17:10 Ondansetron Hcl 4 Mg/2 Ml Vial IVPUSH 07/28/22 17:04 4 mg ONCE ONE Administration Critical Care Time Critical Care Time Critical Care Time: Yes Total Critical Care Time: 90 Attestation: The patient was critically ill with a high probability of imminent or life threatening deterioration. I spent greater than 100 minutes of discontinuous time evaluating the patient,delivering critical care at the bedside, discussing and evaluating pertinent data with consultants. Critical care time does not include time spent performing separately billable procedures or teaching. Total time spent performing critical care was 90 minutes. Discharge Plan Discharge Clinical Impression: Acute respiratory failure, Gastroenteritis, acute, Acute renal failure, Acidosis, lactic, Sepsis Patient Disposition: Admitted As Inpatient Interventions: Admission Worksheet (ED) Last Done: 07/29/22 00:49 Discharge Date/Time: 07/29/22 00:50
--- NOTE | 2022-07-28 17:06 | ECG_ITS ---
Test Reason : HYPOTENSION Blood Pressure : / mmHG Vent. Rate : 085 BPM Atrial Rate : 085 BPM P-R Int : 142 ms QRS Dur : 122 ms QT Int : 430 ms P-R-T Axes : 062 026 043 degrees QTc Int : 511 ms Normal sinus rhythm Right bundle branch block Abnormal ECG When compared with ECG of 26-JUL-2022 20:13, Vent. rate has decreased BY 62 BPM Right bundle branch block is now Present Criteria for Inferior-posterior infarct are no longer Present Referred By: Benedicto Padgett Electronically Signed By:Harris Phillips
[2022-07-28] MEDS: 0.9 % Sodium Chloride 3,000 ML 1000 ML IV (17:09)
[2022-07-28] MEDS: methylPREDNISolone Sod Succ 125 MG/2 ML VIAL IVPUSH (17:10)
[2022-07-28] MEDS: ondansetron HCL 4 MG/2 ML VIAL IVPUSH (17:10)
[2022-07-28 17:17] LABS: Neutrophils Percent Manual 27 % (45-73)
[2022-07-28 17:18] LABS: Band Neutrophils Percent 47 % (3-5); Lymphocytes Absolute Manual 0.4 X10*3/uL (1.2-4.9); Lymphocytes Percent Manual 4 % (20-40); Metamyelocytes Absolute 0.9 X10*3/uL; Metamyelocytes Percent 9 %; Monocytes Absolute Manual 0.9 X10*3/uL (0.1-1.2); Monocytes Percent Manual 9 % (2-11); Myelocytes Absolute 0.4 X10*/uL; Myelocytes Percent 4 %; Neutrophils Absolute Manual 7.3 X10*3/uL (2.0-8.3); Platelet Estimate NORMAL (NORMAL); Platelet Morphology Comment NORMAL; RBC Morphology NORMAL; Toxic Vacuolation PRESENT
[2022-07-28 17:22] LABS: Lipase 6 U/L (8-78)
[2022-07-28] MEDS: Piperacillin Sodium/Tazobactam 3.375 GM in 0.9 % Sodium Chloride 50 ML IV (17:32)
--- NOTE | 2022-07-28 17:34 | PC.NURSE ---
Addendum entered by Cyndi Crenshaw 07/28/22 17:38: 20 left ac by provider. Fluids infusing with pressure bag. Pt arousable to verbal stimuli, answering questions appropriately. Original Note: Hypotensive upon arrival - pt reports days of vomiting and diarrhea, IV established and fluids running. Provider at bedside for US guided IV.
[2022-07-28 17:36] LABS: Troponin-I High Sensitivity 65.9 ng/L (<3.5-17.0)
[2022-07-28 17:48] LABS: Lactic Acid 2.3 mmol/L (0.5-2.0)
--- NOTE | 2022-07-28 18:18 | PC.NURSE ---
CT scan and Xray obtained, third liter of fluids infusing
[2022-07-28 19:31] LABS: Reflex Lactate? Lactic Acid Added
[2022-07-28 20:14] LABS: ~Lactic Acid-LAB USE ONLY 2.1 mmol/L (0.5-2.0)
[2022-07-28 20:43] LABS: Venous Blood Gas Refer to POC result
[2022-07-28 20:44] LABS: VBG Base Excess -2.5 mmol/L; VBG HCO3 28 mmol/L (22-26); VBG pCO2 81 mmHg; VBG pH 7.15 (7.32-7.43); VBG pO2 37 mmHg
[2022-07-28 20:57] LABS: Anion Gap 20 (12-20); Blood Urea Nitrogen 39 mg/dL (9-16); Calcium 7.2 mg/dL (8.4-10.2); Carbon Dioxide 26 mmol/L (22-29); Chloride 96 mmol/L (96-108); Estimated Glomerular Filt Rate 17; Glucose Random 183 mg/dL (60-115); Potassium 4.2 mmol/L (3.3-5.1); Sodium 138 mmol/L (135-145)
[2022-07-28 21:14] LABS: Appearance Urine Turbid; Color Urine Dark Yellow; Glucose Urine UA 100 mg/dL (Negative); Leukocyte Esterase Urine Negative (Negative); Nitrite Urine Negative (Negative); Specific Gravity - Urine 1.025 (1.005-1.025); UMIC TRIGGER UACC YES; Urine Blood Small (1+) (Negative); Urine Ketones Negative (Negative); Urine Protein 300 (3+) mg/dL (Neg-Trace)
--- NOTE | 2022-07-28 21:17 | PC.NURSE ---
BP 86/48, MD Campbell aware. Verbal order for 1 L NS administered at this time. Will continue to monitor.
[2022-07-28] MEDS: 0.9 % Sodium Chloride 1,000 ML 999 ML IV (21:18)
[2022-07-28 21:27] LABS: Bacteria Urine 1+ (None Seen); Hyaline Casts Urine 0-2 /LPF (0-2); Squamous Epithelial Cell Urine >20 /HPF (0-2); UACC Culture Trigger YES
[2022-07-28 21:57] LABS: Reflex Lactate? 2 Y
[2022-07-28 23:18] LABS: Venous Blood Gas Refer to POC result
[2022-07-28 23:19] LABS: VBG Base Excess -3.5 mmol/L; VBG HCO3 24 mmol/L (22-26); VBG pCO2 58 mmHg; VBG pH 7.23 (7.32-7.43); VBG pO2 62 mmHg
[2022-07-28 23:32] LABS: ~Lactic Acid-LAB USE ONLY 1.5 mmol/L (0.5-2.0)
[2022-07-28 23:40] LABS: Troponin-I High Sensitivity 24.2 ng/L (<3.5-17.0)
--- NOTE | 2022-07-28 23:51 | P.HPHOSP_ITS ---
History of Present Illness Date of Service: 07/28/22 Chief Complaint: nausea, vomiting, diarrhea 52-year-old female with past medical history of CHF/asthma overlap with several admissions in the recent past, history of CHF, hypertension, diabetes was seen in the hospital on 07/24 for shortness of breath, treated with steroids, and breathing treatment and sent home returns with complaints of nausea vomiting diarrhea since 07/26. Patient is on BiPAP at this time, time did, I am unable to get much history from her therefore history is obtained from ED physician.. Her pH on arrival was found to be 7.1 with a CO2 in the 80s. Patient was placed on BiPAP with improvement in her labs. Her other labs show WBC count of 9.9, creatinine of 3 with a baseline of 0.69, lactic acid of 2.3, troponin of 65, Patient abdomen pelvic CT shows no acute findings within the abdomen or pelvis Patient uses BiPAP at bedtime, she is currently placed on BiPAP and will be admitted for further management Review of Systems Review of Systems: Yes all other systems are reviewed and are negative [facility] Medical History Abdominal pain Abnormal chest x-ray Acute respiratory failure Aspiration into airway Asthma-COPD overlap syndrome Cellulitis Chronic constipation Chronic respiratory failure Chronic respiratory failure Congestive heart failure COPD (chronic obstructive pulmonary disease) COPD exacerbation COPD mixed type Cor pulmonale Diabetes mellitus Essential hypertension Hyperlipidemia, unspecified Hypertensive cardiovascular disease Hypogammaglobulinemia Leukocytosis Limb swelling Morbid obesity Morbid obesity Opioid dependence CHITO (obstructive sleep apnea) Poor dentition Pulmonary congestion Pulmonary nodule Rib fractures Status asthmaticus with COPD (chronic obstructive pulmonary disease) Tobacco abuse Type 2 diabetes mellitus Type 2 diabetes mellitus with unspecified complications Vomiting Family History Father Diabetes Other Asthma Surgical History H/O tubal ligation Social History Household Members: Family Household Members Other:: daughter Housing: Apartment Do you presently have visiting nurse or other home services: Yes Unable to assess alcohol history related to: Unknown Alcohol intake: never Patient Tobacco Use Status: Former Tobacco user Quit Date: February 2022 Tobacco use type: Cigarette Cigarettes Per Day: 1 Years Smoked: 35 e-Cigarette/Vaping Use: Currently Using Second Hand Smoke Exposure: No Use of substances other than those prescribed or required for medical reasons: No Substance Use Type: Opiates Have you been hit, kicked, punched, or otherwise hurt by someone within the past year? If so, by whom?: No Is there a partner from a previous relationship who is making you feel unsafe now?: No Are you made to feel afraid or neglected: No Advance Directives: Yes Advance Directives on File: Yes Advance Directives Date on File: 06/12/21 Do you have thoughts of harming others: None Do you have a plan to hurt others: No Plan Nutrition Risks: Difficulty swallowing Patient : No service: No Current occupational status: unemployed and disabled Meds Allergies Allergy/AdvReac Type Severity Reaction Status Date / Time No Known Allergies Allergy Verified 05/27/22 10:15 [No Known Allergies*] Active Medications: Current Medications Acetaminophen (Acetaminophen 325 Mg Tablet) 650 mg PO Q6H PRN PRN Reason: Pain, Mild (Pain Scale 1-3) Heparin Sodium (Porcine) (Heparin Sodium,Porcine 5,000 Unit/Ml Vial) 5,000 unit SUBCUT Q12H [facility] Ondansetron HCl (Ondansetron Hcl 4 Mg/2 Ml Vial) 4 mg IVPUSH Q8H PRN PRN Reason: Nausea and Vomiting Sodium Chloride (0.9 % Sodium Chloride Flush 3 Ml Syringe) [facility] Medications Medication Instructions Recorded Confirmed Last Taken Type albuterol sulfate 90 mcg/actuation 2 puff inhalation Q4H PRN 12/30/19 06/28/22 07/28/22 23:10 History aerosol inhaler (ProAir HFA) Shortness Of Breath Or Wheezing loratadine 10 mg tablet (Claritin) 10 mg PO DAILY 12/30/19 06/28/22 04/07/22 History montelukast 10 mg tablet 10 mg PO BEDTIME 12/30/19 06/28/22 07/28/22 23:14 History diltiazem HCl 360 mg capsule,24 360 mg PO DAILY 11/16/20 06/28/22 04/07/22 History hr,extended release (Tiadylt ER) roflumilast 500 mcg tablet 500 mcg PO DAILY 11/16/20 06/28/22 07/28/22 23:15 History (Daliresp) rosuvastatin 5 mg tablet 5 mg PO BEDTIME 11/16/20 06/28/22 07/28/22 23:15 History insulin lispro 100 unit/mL See Protocol subcut TIDAC 12/14/20 06/28/22 07/28/22 23:16 History subcutaneous solution (Humalog U-100 Insulin) metformin 500 mg tablet,extended 1,000 mg PO BID 05/18/21 06/28/22 04/07/22 History release 24 hr ergocalciferol (vitamin D2) 1,250 1,250 mcg PO QWEEK 06/06/21 06/28/22 Unknown History mcg (50,000 unit) capsule methadone 10 mg/mL oral concentrate 50 mg PO DAILY 06/06/21 06/30/22 2 Days Ago History ~06/28/22 lisinopril 40 mg tablet 40 mg PO DAILY 07/30/21 06/28/22 04/07/22 History hydralazine 25 mg tablet 25 mg PO TID 11/02/21 06/28/22 07/28/22 23:12 History insulin lispro 100 unit/mL 4 unit subcut TIDAC 11/02/21 06/28/22 04/07/22 History subcutaneous solution omeprazole 40 mg capsule,delayed 40 mg PO DAILY@0630 11/02/21 06/28/22 07/28/22 23:14 History release clonazepam 1 mg tablet 1 mg PO BID PRN Anxiety 06/28/22 06/28/22 Unknown History ibuprofen 600 mg tablet 600 mg PO Q8H 06/28/22 06/28/22 Unknown History prednisone 10 mg tablet 30 mg PO DAILY 06/28/22 06/28/22 07/28/22 23:15 History Physical Exam Vital Signs and Narrative: Vital Signs: Last Vital Signs Temp 98 F 07/28/22 22:31 Pulse 93 07/28/22 23:36 Resp 23 H 07/28/22 23:36 BP 96/58 L 07/28/22 23:36 Pulse Ox 99 07/28/22 23:36 O2 Del Method BiPAP 07/28/22 23:36 O2 Flow Rate 3 07/28/22 21:30 Oxygen Flow Rate 2 07/28/22 16:28 BMI result Body Mass Index 37.1 Const: Other: Patient obtunded, somnolent, on BiPAP, hard to arouse General: cooperative and no acute distress Eyes: General: appearance normal, both eyes and all related structures Resp: Effort & Inspection: normal respiratory effort Cardio: Rate: regular rate Rhythm: regular rhythm GI: Palpation (GI): Soft to palpation Auscultation: normal bowel sounds Skin: General skin exam: no rashes or lesions noted Extrem: General: Yes normal to inspection and Yes no pedal edema Results Labs 07/28/22 16:29 07/28/22 20:32 Labs: Laboratory Results - last 24 hr 07/28/22 07/28/22 07/28/22 16:29 16:29 16:29 MCV 91.4 MCH 28.7 MCHC 31.4 RDW 13.6 Plt Count 280 MPV 8.9 L Immature Gran % (Auto) Cancelled Neut % (Auto) Cancelled Lymph % (Auto) Cancelled [place] % (Auto) Cancelled Eos % (Auto) Cancelled Baso % (Auto) Cancelled Lymph # (Auto) Cancelled [place] # (Auto) Cancelled Eos # (Auto) Cancelled Baso # (Auto) Cancelled Abs Immat Gran (auto) Cancelled Absolute Neuts (auto) Cancelled Absolute Nucleated RBC 0.000 Nucleated RBC % (auto) 0.0 Neutrophils % (Manual) 27 L Band Neutrophils % 47 H Lymphocytes % (Manual) 4 L Monocytes % (Manual) 9 Metamyelocytes % 9 Myelocytes % 4 Abs Neuts (Manual) 7.3 Lymphocytes # (Manual) 0.4 L Monocytes # (Manual) 0.9 Metamyelocytes # 0.9 Myelocytes # 0.4 Toxic Vacuolation PRESENT Platelet Estimate NORMAL Plt Morphology Comment NORMAL RBC Morphology NORMAL VBG pH VBG pCO2 VBG pO2 VBG HCO3 VBG O2 Saturation VBG Base Excess Anion Gap 24 H Estim Creat Clear Calc 20.5 Estimated GFR 16 Random Glucose 142 H Lactic Acid Lactic Acid F/U @ 2Hr Lactic Acid F/U @ 4Hr Calcium 8.6 D Magnesium 2.4 Total Bilirubin 0.2 AST 17 ALT 17 Alkaline Phosphatase 92 Troponin I High Sens 65.9 H* D Total Protein 6.6 Albumin 3.6 Lipase 6 L Urine Color Urine Appearance Urine pH Ur Specific [place] Urine Protein Urine Glucose (UA) Urine Ketones Urine Blood Urine Nitrite Ur Leukocyte Esterase Urine RBC Urine WBC Ur Squamous Epith Cells Urine Bacteria Hyaline Casts 07/28/22 07/28/22 07/28/22 17:26 19:38 20:32 MCV MCH MCHC RDW Plt Count MPV Immature Gran % (Auto) Neut % (Auto) Lymph % (Auto) [place] % (Auto) Eos % (Auto) Baso % (Auto) Lymph # (Auto) [place] # (Auto) Eos # (Auto) Baso # (Auto) Abs Immat Gran (auto) Absolute Neuts (auto) Absolute Nucleated RBC Nucleated RBC % (auto) Neutrophils % (Manual) Band Neutrophils % Lymphocytes % (Manual) Monocytes % (Manual) Metamyelocytes % Myelocytes % Abs Neuts (Manual) Lymphocytes # (Manual) Monocytes # (Manual) Metamyelocytes # Myelocytes # Toxic Vacuolation Platelet Estimate Plt Morphology Comment RBC Morphology VBG pH VBG pCO2 VBG pO2 VBG HCO3 VBG O2 Saturation VBG Base Excess Anion Gap 20 Estim Creat Clear Calc 21.0 Estimated GFR 17 Random Glucose 183 H Lactic Acid 2.3 H* Lactic Acid F/U @ 2Hr 2.1 H* Lactic Acid F/U @ 4Hr Calcium 7.2 L D Magnesium Total Bilirubin AST ALT Alkaline Phosphatase Troponin I High Sens Total Protein Albumin Lipase Urine Color Urine Appearance Urine pH Ur Specific [place] Urine Protein Urine Glucose (UA) Urine Ketones Urine Blood Urine Nitrite Ur Leukocyte Esterase Urine RBC Urine WBC Ur Squamous Epith Cells Urine Bacteria Hyaline Casts 07/28/22 07/28/22 07/28/22 20:34 20:49 23:00 MCV MCH MCHC RDW Plt Count MPV Immature Gran % (Auto) Neut % (Auto) Lymph % (Auto) [place] % (Auto) Eos % (Auto) Baso % (Auto) Lymph # (Auto) [place] # (Auto) Eos # (Auto) Baso # (Auto) Abs Immat Gran (auto) Absolute Neuts (auto) Absolute Nucleated RBC Nucleated RBC % (auto) Neutrophils % (Manual) Band Neutrophils % Lymphocytes % (Manual) Monocytes % (Manual) Metamyelocytes % Myelocytes % Abs Neuts (Manual) Lymphocytes # (Manual) Monocytes # (Manual) Metamyelocytes # Myelocytes # Toxic Vacuolation Platelet Estimate Plt Morphology Comment RBC Morphology VBG pH 7.15 L* VBG pCO2 81 VBG pO2 37 VBG HCO3 28 H VBG O2 Saturation 47.0 VBG Base Excess -2.5 Anion Gap Estim Creat Clear Calc Estimated GFR Random Glucose Lactic Acid Lactic Acid F/U @ 2Hr Lactic Acid F/U @ 4Hr 1.5 Calcium Magnesium Total Bilirubin AST ALT Alkaline Phosphatase Troponin I High Sens Total Protein Albumin Lipase Urine Color Dark Yellow Urine Appearance Turbid Urine pH 5.0 Ur Specific [place] 1.025 Urine Protein 300 (3+) H Urine Glucose (UA) 100 H Urine Ketones Negative Urine Blood Small (1+) H Urine Nitrite Negative Ur Leukocyte Esterase Negative Urine RBC 11-20 H Urine WBC 6-10 H Ur Squamous Epith Cells >20 Urine Bacteria 1+ Hyaline Casts 0-2 07/28/22 07/28/22 23:00 23:11 MCV MCH MCHC RDW Plt Count MPV Immature Gran % (Auto) Neut % (Auto) Lymph % (Auto) [place] % (Auto) Eos % (Auto) Baso % (Auto) Lymph # (Auto) [place] # (Auto) Eos # (Auto) Baso # (Auto) Abs Immat Gran (auto) Absolute Neuts (auto) Absolute Nucleated RBC Nucleated RBC % (auto) Neutrophils % (Manual) Band Neutrophils % Lymphocytes % (Manual) Monocytes % (Manual) Metamyelocytes % Myelocytes % Abs Neuts (Manual) Lymphocytes # (Manual) Monocytes # (Manual) Metamyelocytes # Myelocytes # Toxic Vacuolation Platelet Estimate Plt Morphology Comment RBC Morphology VBG pH 7.23 L VBG pCO2 58 VBG pO2 62 VBG HCO3 24 VBG O2 Saturation 86.0 VBG Base Excess -3.5 Anion Gap Estim Creat Clear Calc Estimated GFR Random Glucose Lactic Acid Lactic Acid F/U @ 2Hr Lactic Acid F/U @ 4Hr Calcium Magnesium Total Bilirubin AST ALT Alkaline Phosphatase Troponin I High Sens 24.2 H D Total Protein Albumin Lipase Urine Color Urine Appearance Urine pH Ur Specific [place] Urine Protein Urine Glucose (UA) Urine Ketones Urine Blood Urine Nitrite Ur Leukocyte Esterase Urine RBC Urine WBC Ur Squamous Epith Cells Urine Bacteria Hyaline Casts Imaging Radiologist's Impressions: Impressions Chest X-Ray 07/28/22 18:17 IMPRESSION: No acute findings. Abdomen/Pelvis CT 07/28/22 18:19 IMPRESSION: * No acute findings within the abdomen or pelvis to explain the patient's symptomatology. * Chronic findings as above. Assessment and Plan (1) Gastroenteritis, acute: Status: Acute (2) Acute renal failure: Status: Acute (3) Acidosis, lactic: Status: Acute (4) Acute and chronic respiratory failure with hypercapnia: Status: Acute Plan 52-year-old female with past medical history of CHF, asthma COPD, presents to the hospital with complaints of nausea vomiting, diarrhea since being seen in the hospital on 07/26 for asthma exacerbation # nausea vomiting diarrhea - likely secondary to acute gastritis - watery diarrhea with hypotension lactic acidosis indicative of dehydration - appears to have been on antibiotics recently, C diff pending, GI panel pending - will treat with IV fluids, supportive measures # acute chronic hypercapnic respiratory failure - secondary to COPD - has elevated CO2 as well as pH of 7.1 - placed on BiPAP - improved VBG -continue BiPAP at bedtime - will repeat VBG in a.m. - follow mental status - DuoNeb as well as steroids ordered # acute renal failure - likely prerenal secondary to dehydration in the setting of nausea vomiting diarrhea - will treat with IV fluids - follow BMP # lactic acidosis - secondary to above - improved with IV fluids - trend # elevated troponin - likely demand ischemia - initial of 65, improved to 24 and repeat with no EKG changes - monitor on telemetry # diabetes - low-dose sliding scale insulin - diabetic diet - hold oral antihyperglycemics # hypertension - stable - continue antihypertensives DVT prophylaxis: Lovenox Given patient's acute COPD exacerbation, hypercapnia needing BiPAP, and all other abnormalities as listed above patient will require minimum 2 night inpatient hospital stay for close monitoring Time Spent With Patient Time: Total time managing care of this patient today ____ minutes. Quality Stroke Does the patient have a stroke diagnosis?: No VTE Prior VTE?: No VTE Risk Level:: Medical - moderate - high VTE Device Contraindication: Treatment Not Indicated VTE Drug Contraindication: N/A - Med Ordered
[2022-07-29] VITALS (15 sets, daily range): BP systolic 84–133; BP diastolic 46–76; PULSE 87–114; RESP 16–225; TEMP 36.1–37.3; O2SAT 88–97; BMI 38.5
[2022-07-29] MEDS: Heparin Sodium,Porcine 5,000 UNIT/ML VIAL 5000 UNIT SUBCUT ×2 (00:31→12:10)
[2022-07-29] MEDS: 0.9 % Sodium Chloride Flush 3 ML SYRINGE IVFLUSH ×2 (01:24→08:18)
[2022-07-29 07:13] LABS: Hematocrit 39.3 % (37.0-47.0); Hemoglobin 12.4 g/dl (12.0-16.0); Mean Corpuscular HGB Conc 31.6 g/dl (31.0-35.0); Mean Corpuscular Hemoglobin 29.2 pg (27.0-33.0); Mean Corpuscular Volume 92.5 fL (80.0-98.0); Platelet Count 214 X10*3/uL (160-400); Red Blood Count 4.25 X10*6/uL (4.20-5.50); Red Cell Distribution Width 13.7 % (11.0-16.0)
[2022-07-29 07:13] LABS: VBG Base Excess -3.7 mmol/L; VBG HCO3 22 mmol/L (22-26); VBG pCO2 45 mmHg; VBG pO2 64 mmHg
[2022-07-29 07:14] LABS: WBC ABN SCTR FOR CBC 1
[2022-07-29 07:15] LABS: Venous Blood Gas Refer to POC result
[2022-07-29 07:27] LABS: Glucose, Whole Blood 181 mg/dL (60-115)
[2022-07-29 07:43] LABS: Anion Gap 22 (12-20); Blood Urea Nitrogen 50 mg/dL (9-16); Calcium 7.2 mg/dL (8.4-10.2); Carbon Dioxide 21 mmol/L (22-29); Chloride 97 mmol/L (96-108); Creatinine Clr Calc Pharmacy 18.1; Estimated Glomerular Filt Rate 14; Glucose Random 188 mg/dL (60-115); Potassium 3.5 mmol/L (3.3-5.1); Sodium 136 mmol/L (135-145)
[2022-07-29] MEDS: Albuterol/Iprat 2.5/0.5MG 3 ML AMPUL.NEB INHALE ×4 (07:49→20:27)
--- NOTE | 2022-07-29 07:52 | PC.RT ---
pt was on a V60 Bipap overnight without any telemetry. Pt needs to have Sp02 and HR monitored at all times while on V60 Bipap, Will discuss this matter with Director and RN
[2022-07-29 08:02] LABS: Band Neutrophils Percent 45 % (3-5); Lymphocytes Percent Manual 1 % (20-40); Metamyelocytes Percent 2 %; Monocytes Percent Manual 1 % (2-11); Myelocytes Percent 1 %; Neutrophils Percent Manual 49 % (45-73); Promyelocytes Percent 1 %
--- NOTE | 2022-07-29 08:02 | PHA.MEDREC ---
Pharmacy Consult ? Medication Reconciliation Pharmacy has completed the medication reconciliation. Med rec complete off of claim history. Patient is poor historian and doesn't know any medications she takes.
[2022-07-29 08:06] LABS: Dohle Bodies PRESENT; Platelet Estimate NORMAL (NORMAL); Toxic Granulation PRESENT; Toxic Vacuolation PRESENT
[2022-07-29 08:07] LABS: Platelet Morphology Comment NORMAL; RBC Morphology NORMAL
[2022-07-29] MEDS: Insulin Lispro 100 UNIT/ML 3 ML VIAL SUBCUT ×4 (08:18→20:32)
[2022-07-29] MEDS: methylPREDNISolone Sod Succ 40 MG/ML VIAL IVPUSH ×2 (08:18→20:31)
[2022-07-29 09:46] LABS: Lymphocytes Absolute Manual 0.1 X10*3/uL (1.2-4.9); Metamyelocytes Absolute 0.2 X10*3/uL; Monocytes Absolute Manual 0.1 X10*3/uL (0.1-1.2); Myelocytes Absolute 0.1 X10*/uL; Neutrophils Absolute Manual 7.1 X10*3/uL (2.0-8.3); Promyelocytes Absolute 0.1 X10*3/uL; White Blood Count 7.6 X10*3/uL (4.8-10.8)
--- NOTE | 2022-07-29 09:49 | MHC.CM.PN ---
Pt SSO, admitted with dx: hypogammaglobulinemia. 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 D/C plan pending further evaluation, but patient states she does not want to change her previous services and would like to resume them once medically cleared for D/C. HCP on file and verified. Pt states her [employer]ERK can transport her. PCP: Dr. Kelli Benavides
[2022-07-29] MEDS: Lidocaine 4 % Patch ADH..PATCH 1 PATCH TRANSDERMA (09:55)
[2022-07-29] MEDS: lamoTRIgine 25 MG TABLET 150 MG PO ×2 (09:56→20:32)
[2022-07-29] MEDS: Atorvastatin Calcium 20 MG TABLET PO (09:56)
[2022-07-29] MEDS: lisinopriL 40 MG TABLET PO (09:56)
[2022-07-29] MEDS: Loratadine 10 MG TABLET PO (09:56)
[2022-07-29] MEDS: dilTIAZem HCL CD 180 MG CAP.ER.24H 360 MG PO (09:56)
[2022-07-29] MEDS: Theophylline Anhydrous ER 400 MG TAB.ER.24H PO ×2 (09:56→20:32)
[2022-07-29] MEDS: Acetaminophen 325 MG TABLET 650 MG PO (09:56)
[2022-07-29] MEDS: hydrALAZINE HCl 25 MG TABLET PO (09:56)
[2022-07-29] MEDS: Gabapentin 300 MG CAPSULE PO ×2 (09:56→20:32)
[2022-07-29] MEDS: buPROPion HCL 100 MG TABLET PO (09:56)
[2022-07-29] MEDS: 0.9 % Sodium Chloride 1,000 ML 125 ML IVCONT ×2 (09:57→20:35)
[2022-07-29] MEDS: cefTRIAXone sodium 2 GM in 0.9 % Sodium Chloride 50 ML IV (09:58)
--- NOTE | 2022-07-29 11:10 | HO.PM.IMPN ---
Subjective Subjective Date of Service: 07/29/22 Interval History: dyspnea + wheezing improved BCx growing GNRs denies urinary symptoms has some R flank pain This history was taken in Turkmen from the patient. Review of Systems Review of Systems: Yes all other systems are reviewed and are negative Physical Exam Vital Signs: Vital Signs: Last Vital Signs Temp 98.8 F 07/29/22 08:00 Pulse 111 H 07/29/22 09:36 Resp 225 H 07/29/22 09:36 BP 129/76 07/29/22 08:00 Pulse Ox 97 07/29/22 08:00 O2 Del Method Nasal Cannula 07/29/22 08:00 O2 Flow Rate 3 07/29/22 08:00 FiO2 35 07/29/22 04:00 Oxygen Flow Rate 2 07/28/22 16:28 BMI result Body Mass Index 38.5 Gen: in no acute distress HEENT: sclera anicteric, moist mucus membranes Neck: supple Lungs: diminished bilaterally Heart: tachycardic, regular, no murmurs Abd: soft, non-tender, non-distended. obese Ext: no edema Skin: warm/well-perfused Neuro: alert and oriented x3, no focal findings Psych: appropriate affect Objective Data Active Medications Acetaminophen (Acetaminophen 325 Mg Tablet) 650 mg PO Q6H PRN PRN Reason: Pain, Mild (Pain Scale 1-3) Last Admin: 07/29/22 09:56 Dose: 650 mg Documented By: LOYD Albuterol/Ipratropium (Albuterol/Iprat 2.5/0.5mg 3 Ml Ampul.Neb) 3 ml INHALE RQ4H PRN PRN Reason: Shortness of Breath/Wheezing Albuterol/Ipratropium (Albuterol/Iprat 2.5/0.5mg 3 Ml Ampul.Neb) 3 ml INHALE RQ4H WHILE AWAKE [facility] Last Admin: 07/29/22 07:49 Dose: 3 ml Documented By: SANJAY Atorvastatin Calcium (Atorvastatin Calcium 20 Mg Tablet) 20 mg PO DAILY [facility] Last Admin: 07/29/22 09:56 Dose: 20 mg Documented By: LOYD Bupropion HCl (Bupropion Hcl 100 Mg Tablet) 100 mg PO DAILY [facility] Last Admin: 07/29/22 09:56 Dose: 100 mg Documented By: LOYD Clonazepam (Clonazepam 1 Mg Tablet) 1 mg PO BID PRN PRN Reason: Anxiety Diltiazem HCl (Diltiazem Hcl Cd 180 Mg Cap.Er.24h) 360 mg PO DAILY [facility]; Protocol Last Admin: 07/29/22 09:56 Dose: 360 mg Documented By: LOYD Ergocalciferol (Ergocalciferol (Vitamin D2) 1,250 Mcg Capsule) 1,250 mcg PO Q7D [facility] Gabapentin (Gabapentin 300 Mg Capsule) 300 mg PO BID [facility] Last Admin: 07/29/22 09:56 Dose: 300 mg Documented By: LOYD Glucose (Glucose Gel 15 Gm Gel..Gram.) 15 gm PO Q15M PRN; Protocol PRN Reason: per Hypoglycemia Standing Ord. Glucose (Glucose Gel 15 Gm Gel..Gram.) 15 gm PO Q15M PRN; Protocol PRN Reason: per Hypoglycemia Standing Ord. Heparin Sodium (Porcine) (Heparin Sodium,Porcine 5,000 Unit/Ml Vial) 5,000 unit SUBCUT Q12H [facility] Last Admin: 07/29/22 00:31 Dose: 5,000 unit Documented By: ADIA Hydralazine HCl (Hydralazine Hcl 25 Mg Tablet) 25 mg PO TID [facility]; Protocol Last Admin: 07/29/22 09:56 Dose: 25 mg Documented By: LOYD Dextrose (D10) 250 mls @ 750 mls/hr IV Q15M PRN; Protocol PRN Reason: per Hypoglycemia Standing Ord. Dextrose (D10) 250 mls @ 750 mls/hr IV Q15M PRN; Protocol PRN Reason: per Hypoglycemia Standing Ord. Ceftriaxone Sodium 2 gm/ (Sodium Chloride) 50 mls @ 100 mls/hr IV Q24H [facility] Last Infusion: 07/29/22 10:59 Dose: 0 mls/hr Documented By: LOYD Sodium Chloride (Ns) 1,000 mls @ 125 mls/hr IVCONT .Q8H [facility] Last Admin: 07/29/22 09:57 Dose: 125 mls/hr Documented By: LOYD Insulin Glargine (Insulin Glargine,Hum.Rec.Anlog 100 Unit/Ml 10 Ml Vial) 35 unit SUBCUT BEDTIME [facility] Insulin Human Lispro (Insulin Lispro 100 Unit/Ml 3 Ml Vial) 0 unit SUBCUT QIDACHS [facility]; Protocol Last Admin: 07/29/22 08:18 Dose: 2 unit Documented By: LOYD Insulin Human Lispro (Insulin Lispro 100 Unit/Ml 3 Ml Vial) 0 unit SUBCUT QIDACHS [facility]; Protocol Last Admin: 07/29/22 08:01 Dose: Not Given Documented By: LOYD Non-Admin Reason: Duplicate Order Lamotrigine (Lamotrigine 25 Mg Tablet) 150 mg PO BID [facility] Last Admin: 07/29/22 09:56 Dose: 150 mg Documented By: LOYD Lidocaine (Lidocaine 4 % Patch Adh..Patch) 1 patch TRANSDERMA DAILY [facility] Last Admin: 07/29/22 09:55 Dose: 1 patch Documented By: LOYD Lisinopril (Lisinopril 40 Mg Tablet) 40 mg PO DAILY [facility]; Protocol Last Admin: 07/29/22 09:56 Dose: 40 mg Documented By: LOYD Loratadine (Loratadine 10 Mg Tablet) 10 mg PO DAILY [facility] Last Admin: 07/29/22 09:56 Dose: 10 mg Documented By: LOYD Methylprednisolone Sodium Succinate (Methylprednisolone Sod Succ 40 Mg/Ml Vial) 40 mg IVPUSH Q12H [facility] Last Admin: 07/29/22 08:18 Dose: 40 mg Documented By: LOYD Montelukast Sodium (Montelukast Sodium 10 Mg Tablet) 10 mg PO BEDTIME [facility] Non-Formulary Medication (Roflumilast [Daliresp]) 500 mcg PO DAILY [facility] Omeprazole (Omeprazole 40 Mg Capsule.Dr) 40 mg PO DAILY@0630 [facility] Ondansetron HCl (Ondansetron Hcl 4 Mg/2 Ml Vial) 4 mg IVPUSH Q8H PRN PRN Reason: Nausea and Vomiting Pharmacy Consult (Consult Rx Perform Med Rec) 1 each MISCELLANE ONCE PRN PRN Reason: Consult order Simethicone (Simethicone 80 Mg Tab.Chew) 80 mg PO QIDWMHS PRN PRN Reason: Abdominal Distention Sodium Chloride (0.9 % Sodium Chloride Flush 3 Ml Syringe) 3 ml IVFLUSH QSHIFT [facility] Last Admin: 07/29/22 08:18 Dose: 3 ml Documented By: LOYD Theophylline (Theophylline Anhydrous Er 400 Mg Tab.Er.24h) 400 mg PO Q12H [facility] Last Admin: 07/29/22 09:56 Dose: 400 mg Documented By: LOYD Tiotropium [place] (Tiotropium [place] 18 Mcg Cap.W.Dev) 1 puff INHALE DAILY [facility] Last Admin: 07/29/22 09:36 Dose: 1 puff Documented By: GUIDIB Labs 07/29/22 07:01 07/29/22 07:01 Labs: Laboratory Results - last 24 hr 07/28/22 07/28/22 07/28/22 16:29 16:29 16:29 MCV 91.4 MCH 28.7 MCHC 31.4 RDW 13.6 Plt Count 280 MPV 8.9 L Immature Gran % (Auto) Cancelled Neut % (Auto) Cancelled Lymph % (Auto) Cancelled [place] % (Auto) Cancelled Eos % (Auto) Cancelled Baso % (Auto) Cancelled Lymph # (Auto) Cancelled [place] # (Auto) Cancelled Eos # (Auto) Cancelled Baso # (Auto) Cancelled Abs Immat Gran (auto) Cancelled Absolute Neuts (auto) Cancelled Absolute Nucleated RBC 0.000 Nucleated RBC % (auto) 0.0 Neutrophils % (Manual) 27 L Band Neutrophils % 47 H Lymphocytes % (Manual) 4 L Monocytes % (Manual) 9 Metamyelocytes % 9 Myelocytes % 4 Promyelocytes % Abs Neuts (Manual) 7.3 Lymphocytes # (Manual) 0.4 L Monocytes # (Manual) 0.9 Metamyelocytes # 0.9 Myelocytes # 0.4 Promyelocytes # Toxic Granulation Toxic Vacuolation PRESENT Dohle Bodies Platelet Estimate NORMAL Plt Morphology Comment NORMAL RBC Morphology NORMAL VBG pH VBG pCO2 VBG pO2 VBG HCO3 VBG O2 Saturation VBG Base Excess Anion Gap 24 H Estim Creat Clear Calc 20.5 Estimated GFR 16 POC Glucose Random Glucose 142 H Lactic Acid Lactic Acid F/U @ 2Hr Lactic Acid F/U @ 4Hr Calcium 8.6 D Magnesium 2.4 Total Bilirubin 0.2 AST 17 ALT 17 Alkaline Phosphatase 92 Troponin I High Sens 65.9 H* D Total Protein 6.6 Albumin 3.6 Lipase 6 L Urine Color Urine Appearance Urine pH Ur Specific [place] Urine Protein Urine Glucose (UA) Urine Ketones Urine Blood Urine Nitrite Ur Leukocyte Esterase Urine RBC Urine WBC Ur Squamous Epith Cells Urine Bacteria Hyaline Casts 07/28/22 07/28/22 07/28/22 17:26 19:38 20:32 MCV MCH MCHC RDW Plt Count MPV Immature Gran % (Auto) Neut % (Auto) Lymph % (Auto) [place] % (Auto) Eos % (Auto) Baso % (Auto) Lymph # (Auto) [place] # (Auto) Eos # (Auto) Baso # (Auto) Abs Immat Gran (auto) Absolute Neuts (auto) Absolute Nucleated RBC Nucleated RBC % (auto) Neutrophils % (Manual) Band Neutrophils % Lymphocytes % (Manual) Monocytes % (Manual) Metamyelocytes % Myelocytes % Promyelocytes % Abs Neuts (Manual) Lymphocytes # (Manual) Monocytes # (Manual) Metamyelocytes # Myelocytes # Promyelocytes # Toxic Granulation Toxic Vacuolation Dohle Bodies Platelet Estimate Plt Morphology Comment RBC Morphology VBG pH VBG pCO2 VBG pO2 VBG HCO3 VBG O2 Saturation VBG Base Excess Anion Gap 20 Estim Creat Clear Calc 21.0 Estimated GFR 17 POC Glucose Random Glucose 183 H Lactic Acid 2.3 H* Lactic Acid F/U @ 2Hr 2.1 H* Lactic Acid F/U @ 4Hr Calcium 7.2 L D Magnesium Total Bilirubin AST ALT Alkaline Phosphatase Troponin I High Sens Total Protein Albumin Lipase Urine Color Urine Appearance Urine pH Ur Specific [place] Urine Protein Urine Glucose (UA) Urine Ketones Urine Blood Urine Nitrite Ur Leukocyte Esterase Urine RBC Urine WBC Ur Squamous Epith Cells Urine Bacteria Hyaline Casts 07/28/22 07/28/22 07/28/22 20:34 20:49 23:00 MCV MCH MCHC RDW Plt Count MPV Immature Gran % (Auto) Neut % (Auto) Lymph % (Auto) [place] % (Auto) Eos % (Auto) Baso % (Auto) Lymph # (Auto) [place] # (Auto) Eos # (Auto) Baso # (Auto) Abs Immat Gran (auto) Absolute Neuts (auto) Absolute Nucleated RBC Nucleated RBC % (auto) Neutrophils % (Manual) Band Neutrophils % Lymphocytes % (Manual) Monocytes % (Manual) Metamyelocytes % Myelocytes % Promyelocytes % Abs Neuts (Manual) Lymphocytes # (Manual) Monocytes # (Manual) Metamyelocytes # Myelocytes # Promyelocytes # Toxic Granulation Toxic Vacuolation Dohle Bodies Platelet Estimate Plt Morphology Comment RBC Morphology VBG pH 7.15 L* VBG pCO2 81 VBG pO2 37 VBG HCO3 28 H VBG O2 Saturation 47.0 VBG Base Excess -2.5 Anion Gap Estim Creat Clear Calc Estimated GFR POC Glucose Random Glucose Lactic Acid Lactic Acid F/U @ 2Hr Lactic Acid F/U @ 4Hr 1.5 Calcium Magnesium Total Bilirubin AST ALT Alkaline Phosphatase Troponin I High Sens Total Protein Albumin Lipase Urine Color Dark Yellow Urine Appearance Turbid Urine pH 5.0 Ur Specific [place] 1.025 Urine Protein 300 (3+) H Urine Glucose (UA) 100 H Urine Ketones Negative Urine Blood Small (1+) H Urine Nitrite Negative Ur Leukocyte Esterase Negative Urine RBC 11-20 H Urine WBC 6-10 H Ur Squamous Epith Cells >20 Urine Bacteria 1+ Hyaline Casts 0-2 07/28/22 07/28/22 07/29/22 23:00 23:11 07:01 MCV 92.5 MCH 29.2 MCHC 31.6 RDW 13.7 Plt Count 214 MPV 9.0 L Immature Gran % (Auto) Cancelled Neut % (Auto) Cancelled Lymph % (Auto) Cancelled [place] % (Auto) Cancelled Eos % (Auto) Cancelled Baso % (Auto) Cancelled Lymph # (Auto) Cancelled [place] # (Auto) Cancelled Eos # (Auto) Cancelled Baso # (Auto) Cancelled Abs Immat Gran (auto) Cancelled Absolute Neuts (auto) Cancelled Absolute Nucleated RBC 0.000 Nucleated RBC % (auto) 0.0 Neutrophils % (Manual) 49 Band Neutrophils % 45 H Lymphocytes % (Manual) 1 L Monocytes % (Manual) 1 L Metamyelocytes % 2 Myelocytes % 1 Promyelocytes % 1 Abs Neuts (Manual) 7.1 Lymphocytes # (Manual) 0.1 L Monocytes # (Manual) 0.1 Metamyelocytes # 0.2 Myelocytes # 0.1 Promyelocytes # 0.1 Toxic Granulation PRESENT Toxic Vacuolation PRESENT Dohle Bodies PRESENT Platelet Estimate NORMAL Plt Morphology Comment NORMAL RBC Morphology NORMAL VBG pH 7.23 L VBG pCO2 58 VBG pO2 62 VBG HCO3 24 VBG O2 Saturation 86.0 VBG Base Excess -3.5 Anion Gap Estim Creat Clear Calc Estimated GFR POC Glucose Random Glucose Lactic Acid Lactic Acid F/U @ 2Hr Lactic Acid F/U @ 4Hr Calcium Magnesium Total Bilirubin AST ALT Alkaline Phosphatase Troponin I High Sens 24.2 H D Total Protein Albumin Lipase Urine Color Urine Appearance Urine pH Ur Specific [place] Urine Protein Urine Glucose (UA) Urine Ketones Urine Blood Urine Nitrite Ur Leukocyte Esterase Urine RBC Urine WBC Ur Squamous Epith Cells Urine Bacteria Hyaline Casts 07/29/22 07/29/22 07/29/22 07:01 07:04 07:21 MCV MCH MCHC RDW Plt Count MPV Immature Gran % (Auto) Neut % (Auto) Lymph % (Auto) [place] % (Auto) Eos % (Auto) Baso % (Auto) Lymph # (Auto) [place] # (Auto) Eos # (Auto) Baso # (Auto) Abs Immat Gran (auto) Absolute Neuts (auto) Absolute Nucleated RBC Nucleated RBC % (auto) Neutrophils % (Manual) Band Neutrophils % Lymphocytes % (Manual) Monocytes % (Manual) Metamyelocytes % Myelocytes % Promyelocytes % Abs Neuts (Manual) Lymphocytes # (Manual) Monocytes # (Manual) Metamyelocytes # Myelocytes # Promyelocytes # Toxic Granulation Toxic Vacuolation Dohle Bodies Platelet Estimate Plt Morphology Comment RBC Morphology VBG pH 7.30 L VBG pCO2 45 VBG pO2 64 VBG HCO3 22 VBG O2 Saturation 90.0 VBG Base Excess -3.7 Anion Gap 22 H Estim Creat Clear Calc 18.1 Estimated GFR 14 POC Glucose 181 H Random Glucose 188 H Lactic Acid Lactic Acid F/U @ 2Hr Lactic Acid F/U @ 4Hr Calcium 7.2 L Magnesium Total Bilirubin AST ALT Alkaline Phosphatase Troponin I High Sens Total Protein Albumin Lipase Urine Color Urine Appearance Urine pH Ur Specific [place] Urine Protein Urine Glucose (UA) Urine Ketones Urine Blood Urine Nitrite Ur Leukocyte Esterase Urine RBC Urine WBC Ur Squamous Epith Cells Urine Bacteria Hyaline Casts Microbiology Microbiology Results: Microbiology 07/28/22 17:26 Blood Culture - Preliminary Blood - Venous Prelim: GNR Gram Stain only 07/28/22 17:26 Blood Culture - Preliminary Blood - Venous Prelim: GNR Gram Stain only 07/28/22 21:47 Urine Culture - Preliminary Urine clean catch - Urine hernandez top No growth to date. Assessment and Plan (1) Acute and chronic respiratory failure with hypercapnia: Status: Acute Plan 51yo F with morbid obesity, asthma/COPD overlap, obesity hypoventilation, chronic hypoxic/hypercapneic resp failure on 2L of O2 + nocturnal BiPAP, hypogammaglobulinemia on IVIg, opioid dependence on methadone, DM2, HTN presented with nausea/vomiting/diarrhea, found to be hypotensive admitted for respiratory failure and VERONIKA found to have GNR bacteremia # GNR bacteremia - ceftriaxone d#1, follow BCx, ?source- will check abd US although no obvious source on CT [though this was non-contrast] # hypotension # lactic acidosis - fluid-responsive. note on chronic steroids [prednisone 20 mg/d]. now on IV methylprednisolone. hold antihypertensives as below. # VERONIKA - likely prerenal, check FENa, continue IV fluid resuscitation. hold lisinopril. # acute/chronic hypoxic/hyppercanpeic respiratory failure - noctunral BiPAP, daily VBG # metabolic encephalopathy -resolved after BiPAP support # asthma/COPD exacerbation - IV steroids, nebulized bronchoildators - continue theophylline, roflumilast, tiotropium # Tn-I elevation - likely demand, decreased on repeat and no EKG changes # DM2 - correction-dose lispro # HTN - hold antihypertensives (lisinopril, hydralazine, diltiazem) # mood disorder - bupropion, lamotrigine, clonazepam # opioid dependence - methadone dose needs to be confirmed # VTE ppx: UFH # dispo: TBD In my clinical judgment, the patient requires continued inpatient hospitalization for the following reasons: resp failure, IV ABX Time Spent With Patient Time: Total time managing care of this patient today __50__ minutes. Quality Stroke Does the patient have a stroke diagnosis?: No VTE Prior VTE?: No VTE Risk Level:: Medical - moderate - high VTE Device Contraindication: Treatment Not Indicated VTE Drug Contraindication: N/A - Med Ordered
[2022-07-29 11:19] LABS: Glucose, Whole Blood 229 mg/dL (60-115)
--- NOTE | 2022-07-29 12:07 | PM.CNNEP ---
History of Present Illness Reason for Consult Consult date: 07/30/22 Reason for consult: veronika Chief Complaint Chief complaint: Hypercapnic, Diarrhea, VERONIKA History of Present Illness Narrative: 52-year-old female with CHF/asthma overlap with several admissions in the recent past, history of CHF, hypertension, diabetes was seen in the hospital on 07/24 for shortness of breath, treated with steroids, and breathing treatment and sent home returns with complaints of nausea vomiting diarrhea since 07/26 At the time of admission blood pressure was rather low. Continues on IV fluids and restrict fluid challenge. Review of Systems Review of Systems No headache. No nausea vomiting. No abdominal pain. Had significant diarrhea Continues to have shortness of breath which her baseline No cough. No dysuria urgency or hematuria. No edema. No rash. [facility] Past Medical History Medical History Abdominal pain Abnormal chest x-ray Acute respiratory failure Aspiration into airway Asthma-COPD overlap syndrome Cellulitis Chronic constipation Chronic respiratory failure Chronic respiratory failure Congestive heart failure COPD (chronic obstructive pulmonary disease) COPD exacerbation COPD mixed type Cor pulmonale Diabetes mellitus Essential hypertension Hyperlipidemia, unspecified Hypertensive cardiovascular disease Hypogammaglobulinemia Leukocytosis Limb swelling Morbid obesity Morbid obesity Opioid dependence CHITO (obstructive sleep apnea) Poor dentition Pulmonary congestion Pulmonary nodule Rib fractures Status asthmaticus with COPD (chronic obstructive pulmonary disease) Tobacco abuse Type 2 diabetes mellitus Type 2 diabetes mellitus with unspecified complications Vomiting Family History Family History Father Diabetes Other Asthma Surgical History Surgical History H/O tubal ligation Social History Social History Household Members: Family Household Members Other:: daughter Housing: Apartment Do you presently have visiting nurse or other home services: Yes Unable to assess alcohol history related to: Unknown Alcohol intake: never Patient Tobacco Use Status: Former Tobacco user Quit Date: February 2022 Tobacco use type: Cigarette Cigarettes Per Day: 1 Years Smoked: 35 e-Cigarette/Vaping Use: Currently Using Second Hand Smoke Exposure: No Use of substances other than those prescribed or required for medical reasons: No Substance Use Type: Opiates Currently Displaying Signs/Symptoms of Drug Intoxication Withdrawal: No Have you been hit, kicked, punched, or otherwise hurt by someone within the past year? If so, by whom?: No Is there a partner from a previous relationship who is making you feel unsafe now?: No Are you made to feel afraid or neglected: No Advance Directives: Yes Advance Directives on File: Yes Advance Directives Date on File: 06/12/21 Do you have thoughts of harming others: None Do you have a plan to hurt others: No Plan Nutrition Risks: Difficulty swallowing Patient : No service: No Current occupational status: unemployed and disabled Meds Allergies Allergy/AdvReac Type Severity Reaction Status Date / Time No Known Allergies Allergy Verified 05/27/22 10:15 [No Known Allergies*] Active Medications: Current Medications Acetaminophen (Acetaminophen 325 Mg Tablet) 650 mg PO Q6H PRN PRN Reason: Pain, Mild (Pain Scale 1-3) Last Admin: 07/29/22 09:56 Dose: 650 mg Albuterol/Ipratropium (Albuterol/Iprat 2.5/0.5mg 3 Ml Ampul.Neb) 3 ml INHALE RQ4H PRN PRN Reason: Shortness of Breath/Wheezing Albuterol/Ipratropium (Albuterol/Iprat 2.5/0.5mg 3 Ml Ampul.Neb) 3 ml INHALE RQ4H WHILE AWAKE [facility] Last Admin: 07/29/22 11:50 Dose: 3 ml Atorvastatin Calcium (Atorvastatin Calcium 20 Mg Tablet) 20 mg PO DAILY [facility] Last Admin: 07/29/22 09:56 Dose: 20 mg Bupropion HCl (Bupropion Hcl 100 Mg Tablet) 100 mg PO DAILY [facility] Last Admin: 07/29/22 09:56 Dose: 100 mg Clonazepam (Clonazepam 1 Mg Tablet) 1 mg PO BID PRN PRN Reason: Anxiety Diltiazem HCl (Diltiazem Hcl Cd 180 Mg Cap.Er.24h) 360 mg PO DAILY [facility]; Protocol Last Admin: 07/29/22 09:56 Dose: 360 mg Ergocalciferol (Ergocalciferol (Vitamin D2) 1,250 Mcg Capsule) 1,250 mcg PO Q7D [facility] Gabapentin (Gabapentin 300 Mg Capsule) 300 mg PO BID [facility] Last Admin: 07/29/22 09:56 Dose: 300 mg Glucose (Glucose Gel 15 Gm Gel..Gram.) 15 gm PO Q15M PRN; Protocol PRN Reason: per Hypoglycemia Standing Ord. Glucose (Glucose Gel 15 Gm Gel..Gram.) 15 gm PO Q15M PRN; Protocol PRN Reason: per Hypoglycemia Standing Ord. Heparin Sodium (Porcine) (Heparin Sodium,Porcine 5,000 Unit/Ml Vial) 5,000 unit SUBCUT Q12H [facility] Last Admin: 07/29/22 00:31 Dose: 5,000 unit Hydralazine HCl (Hydralazine Hcl 25 Mg Tablet) 25 mg PO TID [facility]; Protocol Last Admin: 07/29/22 09:56 Dose: 25 mg Dextrose (D10) 250 mls @ 750 mls/hr IV Q15M PRN; Protocol PRN Reason: per Hypoglycemia Standing Ord. Dextrose (D10) 250 mls @ 750 mls/hr IV Q15M PRN; Protocol PRN Reason: per Hypoglycemia Standing Ord. Ceftriaxone Sodium 2 gm/ (Sodium Chloride) 50 mls @ 100 mls/hr IV Q24H [facility] Last Infusion: 07/29/22 10:59 Dose: Infused Sodium Chloride (Ns) 1,000 mls @ 125 mls/hr IVCONT .Q8H [facility] Last Admin: 07/29/22 09:57 Dose: 125 mls/hr Sodium Chloride (Ns) 1,000 mls @ 999 mls/hr IV .Q1H1M [facility] Stop: 07/29/22 12:30 Insulin Glargine (Insulin Glargine,Hum.Rec.Anlog 100 Unit/Ml 10 Ml Vial) 35 unit SUBCUT BEDTIME [facility] Insulin Human Lispro (Insulin Lispro 100 Unit/Ml 3 Ml Vial) 0 unit SUBCUT QIDACHS [facility]; Protocol Last Admin: 07/29/22 08:18 Dose: 2 unit Insulin Human Lispro (Insulin Lispro 100 Unit/Ml 3 Ml Vial) 0 unit SUBCUT QIDACHS [facility]; Protocol Last Admin: 07/29/22 11:28 Dose: Not Given Lamotrigine (Lamotrigine 25 Mg Tablet) 150 mg PO BID [facility] Last Admin: 07/29/22 09:56 Dose: 150 mg Lidocaine (Lidocaine 4 % Patch Adh..Patch) 1 patch TRANSDERMA DAILY [facility] Last Admin: 07/29/22 09:55 Dose: 1 patch Lisinopril (Lisinopril 40 Mg Tablet) 40 mg PO DAILY [facility]; Protocol Last Admin: 07/29/22 09:56 Dose: 40 mg Loratadine (Loratadine 10 Mg Tablet) 10 mg PO DAILY [facility] Last Admin: 07/29/22 09:56 Dose: 10 mg Methylprednisolone Sodium Succinate (Methylprednisolone Sod Succ 40 Mg/Ml Vial) 40 mg IVPUSH Q12H [facility] Last Admin: 07/29/22 08:18 Dose: 40 mg Montelukast Sodium (Montelukast Sodium 10 Mg Tablet) 10 mg PO BEDTIME [facility] Non-Formulary Medication (Roflumilast [Daliresp]) 500 mcg PO DAILY [facility] Omeprazole (Omeprazole 40 Mg Capsule.Dr) 40 mg PO DAILY@0630 [facility] Ondansetron HCl (Ondansetron Hcl 4 Mg/2 Ml Vial) 4 mg IVPUSH Q8H PRN PRN Reason: Nausea and Vomiting Pharmacy Consult (Consult Rx Perform Med Rec) 1 each MISCELLANE ONCE PRN PRN Reason: Consult order Simethicone (Simethicone 80 Mg Tab.Chew) 80 mg PO QIDWMHS PRN PRN Reason: Abdominal Distention Sodium Chloride (0.9 % Sodium Chloride Flush 3 Ml Syringe) 3 ml IVFLUSH QSHIFT [facility] Last Admin: 07/29/22 08:18 Dose: 3 ml Theophylline (Theophylline Anhydrous Er 400 Mg Tab.Er.24h) 400 mg PO Q12H [facility] Last Admin: 07/29/22 09:56 Dose: 400 mg Tiotropium Grady (Tiotropium Grady 18 Mcg Cap.W.Dev) 1 puff INHALE DAILY [facility] Last Admin: 07/29/22 09:36 Dose: 1 puff Home Medications Medication Instructions Recorded Confirmed Last Taken Type albuterol sulfate 90 mcg/actuation 2 puff inhalation Q4H PRN 12/30/19 07/29/22 07/28/22 23:10 History aerosol inhaler (ProAir HFA) Shortness Of Breath Or Wheezing loratadine 10 mg tablet (Claritin) 10 mg PO DAILY 12/30/19 07/29/22 04/07/22 History montelukast 10 mg tablet 10 mg PO BEDTIME 12/30/19 07/29/22 07/28/22 23:14 History diltiazem HCl 360 mg capsule,24 360 mg PO DAILY 11/16/20 07/29/22 04/07/22 History hr,extended release (Tiadylt ER) roflumilast 500 mcg tablet 500 mcg PO DAILY 11/16/20 07/29/22 07/28/22 23:15 History (Daliresp) rosuvastatin 5 mg tablet 5 mg PO BEDTIME 11/16/20 07/29/22 07/28/22 23:15 History insulin lispro 100 unit/mL See Protocol subcut TIDAC 12/14/20 07/29/22 07/28/22 23:16 History subcutaneous solution (Humalog U-100 Insulin) metformin 500 mg tablet,extended 1,000 mg PO BID 05/18/21 07/29/22 04/07/22 History release 24 hr ergocalciferol (vitamin D2) 1,250 1,250 mcg PO QWEEK 06/06/21 07/29/22 Unknown History mcg (50,000 unit) capsule methadone 10 mg/mL oral concentrate 50 mg PO DAILY 06/06/21 07/29/22 07/28/22 History lisinopril 40 mg tablet 40 mg PO DAILY 07/30/21 07/29/22 04/07/22 History hydralazine 25 mg tablet 25 mg PO TID 11/02/21 07/29/22 07/28/22 23:12 History insulin lispro 100 unit/mL 4 unit subcut TIDAC 11/02/21 07/29/22 04/07/22 History subcutaneous solution omeprazole 40 mg capsule,delayed 40 mg PO DAILY@0630 11/02/21 07/29/22 07/28/22 23:14 History release clonazepam 1 mg tablet 1 mg PO BID PRN Anxiety 06/28/22 07/29/22 Unknown History ibuprofen 600 mg tablet 600 mg PO Q8H PRN Pain 06/28/22 07/29/22 Unknown History alendronate 70 mg tablet 70 mg PO QWEEK 07/29/22 07/29/22 Unknown History bupropion HCl 100 mg tablet 100 mg PO DAILY 07/29/22 07/29/22 Unknown History lamotrigine 150 mg tablet 150 mg PO BID 07/29/22 07/29/22 Unknown History lidocaine 5 % topical patch 1 patch topical DAILY 07/29/22 07/29/22 Unknown History prednisone 10 mg tablet 20 mg PO DAILY 07/29/22 07/29/22 Unknown History sodium chloride 7 % for 4 ml inhalation BID 07/29/22 07/29/22 Unknown History nebulization Physical Exam Vital Signs: Last Vital Signs Temp 98.8 F 07/29/22 08:00 Pulse 92 07/29/22 11:50 Resp 18 07/29/22 11:50 BP 129/76 07/29/22 08:00 Pulse Ox 97 07/29/22 08:00 O2 Del Method Nasal Cannula 07/29/22 08:00 O2 Flow Rate 3 07/29/22 08:00 FiO2 35 07/29/22 04:00 Oxygen Flow Rate 2 07/28/22 16:28 BMI result Body Mass Index 38.5 Comfortable Obese Neck is supple Lung: Air entry equal with scattered rhonchi Heart: S1,S2, normal. No rub Abd: Soft. BS + NS : Alert.No asterexis Ext: No edema Results Lab Results 07/29/22 07:01 07/29/22 07:01 Lab results: Chemistry 07/28/22 07/28/22 07/29/22 16:29 20:32 07:01 Sodium 136 138 136 Potassium 3.7 4.2 3.5 Carbon Dioxide 27 26 21 L BUN 38 H 39 H 50 H Creatinine 3.00 H 2.93 H 3.46 H Calcium 8.6 D 7.2 L D 7.2 L Hematology 07/28/22 07/29/22 16:29 07:01 WBC 9.9 7.6 Hgb 13.7 12.4 Plt Count 280 214 Urinalysis 07/28/22 20:49 Urine Color Dark Yellow Urine Appearance Turbid Urine pH 5.0 Ur Specific [place] 1.025 Urine Protein 300 (3+) H Urine Glucose (UA) 100 H Urine Ketones Negative Urine Blood Small (1+) H Urine Nitrite Negative Ur Leukocyte Esterase Negative Urine RBC 11-20 H Urine WBC 6-10 H Ur Squamous Epith Cells >20 Hyaline Casts 0-2 Assessment and Plan (1) Acute renal failure: Status: Acute Plan 52-year-old woman with multiple medical problems who has had essentially normal renal function with a serum creatinine of 0.6 mg/dL about 8 months ago. She comes in with severe diarrhea and currently has acute kidney injury. The different diagnosis for acute kidney injury would include hypoperfusion from severe diarrhea. However the urine sediments reveal some RBCs and protein therefore glomerular nephritis or interstitial nephritis should be considered. Recent imaging study did not reveal any significant obstruction. Recommendations. Check urine for sodium, protein, creatinine, eosinophils. Optimize blood pressure. Avoid hypotension. Agree with fluid challenge. Keep intake more than output. Monitor urine output. No absolute indication for dialysis. Further workup will be determined by the outcome of the baseline investigations. We will follow along with the team. Time Spent With Patient Time: Total time managing care of this patient today ____ minutes. Procedures Date of Service Date of Service: 07/30/22
[2022-07-29] MEDS: 0.9 % Sodium Chloride 1,000 ML 999 ML IV (12:09)
[2022-07-29] MEDS: Ergocalciferol (Vitamin D2) 1,250 MCG CAPSULE 1250 MCG PO (12:09)
--- NOTE | 2022-07-29 12:20 | HE.PHANOTE ---
Re: methadone verification last dose 50 mg on 07/28/22 @[facility] verified by Shaila Levy RN
[2022-07-29] MEDS: methADONE HCl 20 MG/2 ML ORAL.CONC 50 MG PO (13:36)
[2022-07-29 16:01] LABS: Glucose, Whole Blood 227 mg/dL (60-115)
[2022-07-29 16:58] LABS: CDiff Gene PCR NEGATIVE (Negative)
[2022-07-29] MEDS: ondansetron HCL 4 MG/2 ML VIAL IVPUSH (17:10)
[2022-07-29] MEDS: Loperamide HCl 2 MG CAPSULE 4 MG PO ×2 (17:55→22:17)
[2022-07-29] MEDS: Magnesium Hydrox/Alum Hydrox 30 ML ORAL.SUSP PO (17:55)
[2022-07-29] MEDS: Omeprazole 40 MG CAPSULE.DR PO (17:55)
[2022-07-29 20:06] LABS: Glucose, Whole Blood 177 mg/dL (60-115)
[2022-07-29] MEDS: Montelukast Sodium 10 MG TABLET PO (20:32)
[2022-07-29] MEDS: Insulin Glargine,Hum.rec.anlog 100 UNIT/ML 10 ML VIAL 35 UNIT SUBCUT (20:33)
[2022-07-29] MEDS: clonazePAM 1 MG TABLET PO (22:17)
[2022-07-30] VITALS (13 sets, daily range): BP systolic 90–126; BP diastolic 48–77; PULSE 86–108; RESP 18–22; TEMP 36–37.2; O2SAT 84–95; BMI 38.4
[2022-07-30] MEDS: Heparin Sodium,Porcine 5,000 UNIT/ML VIAL 5000 UNIT SUBCUT ×2 (00:49→11:59)
[2022-07-30] MEDS: 0.9 % Sodium Chloride Flush 3 ML SYRINGE IVFLUSH ×2 (00:52→17:49)
[2022-07-30] MEDS: Acetaminophen 325 MG TABLET 650 MG PO ×2 (01:15→06:20)
[2022-07-30] MEDS: Omeprazole 40 MG CAPSULE.DR PO ×2 (06:19→17:43)
[2022-07-30] MEDS: Loperamide HCl 2 MG CAPSULE 4 MG PO ×3 (06:20→21:40)
[2022-07-30] MEDS: methylPREDNISolone Sod Succ 40 MG/ML VIAL IVPUSH ×2 (06:20→19:52)
[2022-07-30 06:31] LABS: VBG Base Excess -7.4 mmol/L; VBG HCO3 20 mmol/L (22-26); VBG pCO2 48 mmHg; VBG pH 7.22 (7.32-7.43); VBG pO2 63 mmHg
[2022-07-30 06:32] LABS: Venous Blood Gas Refer to POC result
[2022-07-30 06:34] LABS: Hematocrit 33.5 % (37.0-47.0); Hemoglobin 10.6 g/dl (12.0-16.0); Mean Corpuscular HGB Conc 31.6 g/dl (31.0-35.0); Mean Corpuscular Hemoglobin 28.8 pg (27.0-33.0); Mean Platelet Volume 9.2 fL (9.4-12.3); Platelet Count 224 X10*3/uL (160-400); Red Blood Count 3.68 X10*6/uL (4.20-5.50); Red Cell Distribution Width 13.8 % (11.0-16.0); White Blood Count 3.6 X10*3/uL (4.8-10.8)
[2022-07-30 07:22] LABS: Anion Gap 24 (12-20); Calcium 7.2 mg/dL (8.4-10.2); Carbon Dioxide 18 mmol/L (22-29); Chloride 94 mmol/L (96-108); Glucose Random 194 mg/dL (60-115); Potassium 3.3 mmol/L (3.3-5.1); Sodium 133 mmol/L (135-145)
[2022-07-30 07:25] LABS: Blood Urea Nitrogen 75 mg/dL (9-16); Creatinine Clr Calc Pharmacy 11.3; Estimated Glomerular Filt Rate 8
[2022-07-30 08:05] LABS: Alanine Aminotransferase 19 U/L (0-31); Albumin Level 3.1 g/dL (3.5-5.0); Alkaline Phosphatase 62 U/L (39-117); Aspartate Amino Transferase 22 U/L (5-31); Bilirubin Direct < 0.2 mg/dL (0.0-0.5); Bilirubin Total 0.1 mg/dL (0.0-1.0); Total Protein 5.5 g/dL (6.5-8.0)
[2022-07-30] MEDS: 0.9 % Sodium Chloride 1,000 ML 999 ML IV (08:07)
[2022-07-30 08:23] LABS: Glucose, Whole Blood 161 mg/dL (60-115)
[2022-07-30] MEDS: Insulin Lispro 100 UNIT/ML 3 ML VIAL SUBCUT ×2 (08:28→12:00)
--- NOTE | 2022-07-30 09:07 | P.PNIM_ITS ---
Subjective Subjective Date of Service: 07/30/22 Interval History: Breathing improved, used BiPAP last night SCr worse. Urinating but I/O poorly recorded. Has some RUQ/R flank pain. Review of Systems Review of Systems: Yes all other systems are reviewed and are negative Physical Exam Vital Signs: Vital Signs: Last Vital Signs Temp 99.0 F 07/30/22 07:29 Pulse 91 07/30/22 07:29 Resp 20 07/30/22 07:29 BP 108/50 L 07/30/22 07:29 Pulse Ox 92 07/30/22 07:29 O2 Del Method Nasal Cannula 07/30/22 07:29 O2 Flow Rate 3 07/30/22 07:29 FiO2 30 07/30/22 03:45 Oxygen Flow Rate 2 07/28/22 16:28 BMI result Body Mass Index 38.4 Gen: chronic dyspnea HEENT: sclera anicteric, moist mucus membranes Neck: supple Lungs: diminished bilaterally Heart: regular, no murmurs Abd: soft, R flank/RUQ tenderness, non-distended. obese Ext: no edema Skin: warm/well-perfused Neuro: alert and oriented x3, no focal findings Psych: appropriate affect Objective Data Active Medications Acetaminophen (Acetaminophen 325 Mg Tablet) 650 mg PO Q6H PRN PRN Reason: Pain, Mild (Pain Scale 1-3) Last Admin: 07/30/22 06:20 Dose: 650 mg Documented By: GANESH Al Hydroxide/Mg Hydroxide (Magnesium Hydrox/Alum Hydrox 30 Ml Oral.Susp) 30 ml PO Q4H PRN PRN Reason: heartburn Last Admin: 07/29/22 17:55 Dose: 30 ml Documented By: NAYE Albuterol/Ipratropium (Albuterol/Iprat 2.5/0.5mg 3 Ml Ampul.Neb) 3 ml INHALE RQ4H PRN PRN Reason: Shortness of Breath/Wheezing Albuterol/Ipratropium (Albuterol/Iprat 2.5/0.5mg 3 Ml Ampul.Neb) 3 ml INHALE RQ4H WHILE AWAKE [facility] Last Admin: 07/29/22 20:27 Dose: 3 ml Documented By: TIO Atorvastatin Calcium (Atorvastatin Calcium 20 Mg Tablet) 20 mg PO DAILY [facility] Last Admin: 05/15/23 09:56 Dose: 20 mg Documented By: LOYD Bupropion HCl (Bupropion Hcl 100 Mg Tablet) 100 mg PO DAILY [facility] Last Admin: 07/29/22 09:56 Dose: 100 mg Documented By: LOYD Clonazepam (Clonazepam 1 Mg Tablet) 1 mg PO BID PRN PRN Reason: Anxiety Last Admin: 07/29/22 22:17 Dose: 1 mg Documented By: NAYE Diltiazem HCl (Diltiazem Hcl Cd 180 Mg Cap.Er.24h) 360 mg PO DAILY [facility]; Protocol Last Admin: 07/29/22 09:56 Dose: 360 mg Documented By: LOYD Ergocalciferol (Ergocalciferol (Vitamin D2) 1,250 Mcg Capsule) 1,250 mcg PO Q7D [facility] Last Admin: 07/29/22 12:09 Dose: 1,250 mcg Documented By: LOYD Gabapentin (Gabapentin 300 Mg Capsule) 300 mg PO BID [facility] Last Admin: 07/29/22 20:32 Dose: 300 mg Documented By: NAYE Glucose (Glucose Gel 15 Gm Gel..Gram.) 15 gm PO Q15M PRN; Protocol PRN Reason: per Hypoglycemia Standing Ord. Glucose (Glucose Gel 15 Gm Gel..Gram.) 15 gm PO Q15M PRN; Protocol PRN Reason: per Hypoglycemia Standing Ord. Heparin Sodium (Porcine) (Heparin Sodium,Porcine 5,000 Unit/Ml Vial) 5,000 unit SUBCUT Q12H [facility] Last Admin: 07/30/22 00:49 Dose: 5,000 unit Documented By: CHAVA Hydralazine HCl (Hydralazine Hcl 25 Mg Tablet) 25 mg PO TID [facility]; Protocol Last Admin: 07/29/22 09:56 Dose: 25 mg Documented By: LOYD Dextrose (D10) 250 mls @ 750 mls/hr IV Q15M PRN; Protocol PRN Reason: per Hypoglycemia Standing Ord. Dextrose (D10) 250 mls @ 750 mls/hr IV Q15M PRN; Protocol PRN Reason: per Hypoglycemia Standing Ord. Ceftriaxone Sodium 2 gm/ (Sodium Chloride) 50 mls @ 100 mls/hr IV Q24H [facility] Last Infusion: 07/29/22 10:59 Dose: 0 mls/hr Documented By: LOYD Sodium Chloride (Ns) 1,000 mls @ 150 mls/hr IVCONT .Q6H40M [facility] Last Admin: 07/29/22 20:35 Dose: 125 mls/hr Documented By: NAYE Insulin Glargine (Insulin Glargine,Hum.Rec.Anlog 100 Unit/Ml 10 Ml Vial) 35 unit SUBCUT BEDTIME [facility] Last Admin: 07/29/22 20:33 Dose: 35 unit Documented By: NAYE Insulin Human Lispro (Insulin Lispro 100 Unit/Ml 3 Ml Vial) 0 unit SUBCUT QIDACHS [facility]; Protocol Last Admin: 07/30/22 08:28 Dose: 2 unit Documented By: CHANI Lamotrigine (Lamotrigine 25 Mg Tablet) 150 mg PO BID [facility] Last Admin: 07/29/22 20:32 Dose: 150 mg Documented By: NAYE Lidocaine (Lidocaine 4 % Patch Adh..Patch) 1 patch TRANSDERMA DAILY [facility] Last Admin: 07/29/22 09:55 Dose: 1 patch Documented By: LOYD Lisinopril (Lisinopril 40 Mg Tablet) 40 mg PO DAILY [facility]; Protocol Last Admin: 07/29/22 09:56 Dose: 40 mg Documented By: LOYD Loperamide HCl (Loperamide Hcl 2 Mg Capsule) 4 mg PO Q4H PRN PRN Reason: diarrhea Last Admin: 07/30/22 06:20 Dose: 4 mg Documented By: GANESH Loratadine (Loratadine 10 Mg Tablet) 10 mg PO DAILY [facility] Last Admin: 07/29/22 09:56 Dose: 10 mg Documented By: LOYD Methadone HCl (Methadone Hcl 20 Mg/2 Ml Oral.Conc) 50 mg PO DAILY [facility] Last Admin: 07/29/22 13:36 Dose: 50 mg Documented By: MARYAM Methylprednisolone Sodium Succinate (Methylprednisolone Sod Succ 40 Mg/Ml Vial) 40 mg IVPUSH Q12H [facility] Last Admin: 07/30/22 06:20 Dose: 40 mg Documented By: GANESH Montelukast Sodium (Montelukast Sodium 10 Mg Tablet) 10 mg PO BEDTIME [facility] Last Admin: 07/29/22 20:32 Dose: 10 mg Documented By: HO.JIMY Non-Formulary Medication (Roflumilast [Daliresp]) 500 mcg PO DAILY [facility] Omeprazole (Omeprazole 40 Mg Capsule.Dr) 40 mg PO BID@0630,1630 [facility] Last Admin: 07/30/22 06:19 Dose: 40 mg Documented By: GANESH Ondansetron HCl (Ondansetron Hcl 4 Mg/2 Ml Vial) 4 mg IVPUSH Q8H PRN PRN Reason: Nausea and Vomiting Last Admin: 07/29/22 17:10 Dose: 4 mg Documented By: NAYE Pharmacy Consult (Consult Rx Perform Med Rec) 1 each MISCELLANE ONCE PRN PRN Reason: Consult order Simethicone (Simethicone 80 Mg Tab.Chew) 80 mg PO QIDWMHS PRN PRN Reason: Abdominal Distention Sodium Chloride (0.9 % Sodium Chloride Flush 3 Ml Syringe) 3 ml IVFLUSH QSHIFT [facility] Last Admin: 07/30/22 08:28 Dose: Not Given Documented By: CHANI Non-Admin Reason: IV Running Theophylline (Theophylline Anhydrous Er 400 Mg Tab.Er.24h) 400 mg PO Q12H [facility] Last Admin: 07/29/22 20:32 Dose: 400 mg Documented By: NAYE Tiotropium [place] (Tiotropium [place] 18 Mcg Cap.W.Dev) 1 puff INHALE DAILY [facility] Last Admin: 07/29/22 09:36 Dose: 1 puff Documented By: DREAIB Labs 07/30/22 06:13 07/30/22 06:13 Labs: Laboratory Results - last 24 hr 07/29/22 07/29/22 07/29/22 07:01 11:14 15:48 MCV MCH MCHC RDW Plt Count MPV Absolute Nucleated RBC Nucleated RBC % (auto) Abs Neuts (Manual) 7.1 Lymphocytes # (Manual) 0.1 L Monocytes # (Manual) 0.1 Metamyelocytes # 0.2 Myelocytes # 0.1 Promyelocytes # 0.1 VBG pH VBG pCO2 VBG pO2 VBG HCO3 VBG O2 Saturation VBG Base Excess Anion Gap Estim Creat Clear Calc Estimated GFR POC Glucose 229 H Random Glucose Calcium Total Bilirubin Direct Bilirubin AST ALT Alkaline Phosphatase Total Protein Albumin C. difficile Tox B Gene NEGATIVE 07/29/22 07/29/22 07/30/22 15:57 19:15 06:13 MCV 91.0 MCH 28.8 MCHC 31.6 RDW 13.8 Plt Count 224 MPV 9.2 L Absolute Nucleated RBC 0.000 Nucleated RBC % (auto) 0.0 Abs Neuts (Manual) Lymphocytes # (Manual) Monocytes # (Manual) Metamyelocytes # Myelocytes # Promyelocytes # VBG pH VBG pCO2 VBG pO2 VBG HCO3 VBG O2 Saturation VBG Base Excess Anion Gap Estim Creat Clear Calc Estimated GFR POC Glucose 227 H 177 H Random Glucose Calcium Total Bilirubin Direct Bilirubin AST ALT Alkaline Phosphatase Total Protein Albumin C. difficile Tox B Gene 07/30/22 07/30/22 07/30/22 06:13 06:21 07:01 MCV MCH MCHC RDW Plt Count MPV Absolute Nucleated RBC Nucleated RBC % (auto) Abs Neuts (Manual) Lymphocytes # (Manual) Monocytes # (Manual) Metamyelocytes # Myelocytes # Promyelocytes # VBG pH 7.22 L VBG pCO2 48 VBG pO2 63 VBG HCO3 20 L VBG O2 Saturation 89.0 VBG Base Excess -7.4 Anion Gap 24 H Estim Creat Clear Calc 11.3 Estimated GFR 8 POC Glucose 161 H Random Glucose 194 H Calcium 7.2 L Total Bilirubin 0.1 Direct Bilirubin < 0.2 AST 22 ALT 19 Alkaline Phosphatase 62 Total Protein 5.5 L Albumin 3.1 L C. difficile Tox B Gene Impressions Abdomen Ultrasound 07/29/22 12:40 IMPRESSION: Distended gallbladder. No gallstone seen. There is sludge in the gallbladder. If there is clinical concern for acalculous cholecystitis, HIDA scan would be recommended. Limited visualization of the pancreas and aorta. Microbiology Microbiology Results: Microbiology 07/28/22 21:47 Urine Culture - Final Urine clean catch - Urine hernandez top No growth. 07/28/22 17:26 Blood Culture - Preliminary Blood - Venous Prelim: GNR Gram Stain only 07/28/22 17:26 Blood Culture - Preliminary Blood - Venous Prelim: GNR Gram Stain only Assessment and Plan (1) Acute and chronic respiratory failure with hypercapnia: Status: Acute Plan d#2 51yo F with morbid obesity, asthma/COPD overlap, obesity hypoventilation, chronic hypoxic/hypercapneic resp failure on 2L of O2 + nocturnal BiPAP, hypogammaglobulinemia on IVIg, opioid dependence on methadone, DM2, HTN presented with nausea/vomiting/diarrhea, found to be hypotensive admitted for respiratory failure and VERONIKA found to have GNR bacteremia # VERONIKA, worsening - still likely prerenal or septic ATN. place Adan. check FENa + urine protein + urine eosinophils, continue IV fluid resuscitation. hold lisinopril. Nephrology following # GNR bacteremia - ceftriaxone d#2, follow BCx, ?hepatobiliary source- US suggests distended GB without stones- will consult GI and obtain HIDA scan in case of acalculous cholecystitis, will also add metronidazole d#1 # hypotension # lactic acidosis, resolved - fluid-responsive. note on chronic steroids [prednisone 20 mg/d]. now on IV methylprednisolone. hold antihypertensives as below. # acute/chronic hypoxic/hyppercanpeic respiratory failure - noctunral BiPAP, daily VBG # metabolic encephalopathy -resolved after BiPAP support # asthma/COPD exacerbation - IV steroids, nebulized bronchoildators - continue theophylline, roflumilast, tiotropium # Tn-I elevation - likely demand, decreased on repeat and no EKG changes # DM2 - correction-dose lispro # HTN - hold antihypertensives (lisinopril, hydralazine, diltiazem) # mood disorder - bupropion, lamotrigine, clonazepam # opioid dependence - methadone 50 mg/d home dose # VTE ppx: UFH # dispo: TBD In my clinical judgment, the patient requires continued inpatient hosp italization for the following reasons: resp failure, IV ABX, VERONIKA Time Spent With Patient Time: Total time managing care of this patient today ___55_ minutes. Quality Stroke Does the patient have a stroke diagnosis?: No VTE Prior VTE?: No VTE Risk Level:: Medical - moderate - high VTE Device Contraindication: Treatment Not Indicated VTE Drug Contraindication: N/A - Med Ordered
[2022-07-30] MEDS: Loratadine 10 MG TABLET PO (09:22)
[2022-07-30] MEDS: 0.9 % Sodium Chloride 1,000 ML 150 ML IVCONT ×2 (09:22→19:57)
[2022-07-30] MEDS: methADONE HCl 20 MG/2 ML ORAL.CONC 50 MG PO (09:22)
[2022-07-30] MEDS: buPROPion HCL 100 MG TABLET PO (09:22)
[2022-07-30] MEDS: lamoTRIgine 25 MG TABLET 150 MG PO ×2 (09:22→21:40)
[2022-07-30] MEDS: Theophylline Anhydrous ER 400 MG TAB.ER.24H PO ×2 (09:22→21:47)
[2022-07-30] MEDS: Atorvastatin Calcium 20 MG TABLET PO (09:22)
[2022-07-30] MEDS: Gabapentin 300 MG CAPSULE PO ×2 (09:22→21:40)
[2022-07-30] MEDS: cefTRIAXone sodium 2 GM in 0.9 % Sodium Chloride 50 ML IV (09:22)
[2022-07-30] MEDS: Albuterol/Iprat 2.5/0.5MG 3 ML AMPUL.NEB INHALE ×3 (09:23→19:29)
[2022-07-30] MEDS: Lidocaine 4 % Patch ADH..PATCH 1 PATCH TRANSDERMA (09:23)
--- NOTE | 2022-07-30 09:38 | PC.NURSE ---
Critical creatinine of 5.52 reported at 0725. promptly notified, and new orders of 1000mL normal saline bolus and jimenez catheter insertion were initiated. 16Fr indwelling catheter inserted at 0745 for accurate I/Os on patient. Balloon inflated with 10mL of normal saline. Pt tolerated both procedure and bolus well. Jimenez draining small amounts of clear yellow urine. Normal saline drip rate increased to 150mL per Dr. Steele. will continue to monitor patient.
--- NOTE | 2022-07-30 09:45 | PM.PNNEP ---
Subjective Subjective Date of Service: 07/31/22 Interval history: Breathing improved, used BiPAP last night SCr worse. Urinating but I/O poorly recorded. Has some RUQ/R flank pain. Physical Exam Vital Signs: Vital Signs: Last Vital Signs Temp 99.0 F 07/30/22 07:29 Pulse 102 H 07/30/22 09:27 Resp 22 H 07/30/22 09:27 BP 108/50 L 07/30/22 07:29 Pulse Ox 92 07/30/22 07:29 O2 Del Method Nasal Cannula 07/30/22 07:29 O2 Flow Rate 3 07/30/22 07:29 FiO2 30 07/30/22 03:45 Oxygen Flow Rate 2 07/28/22 16:28 BMI result Body Mass Index 38.4 Const: General: cooperative Cardio: Rate: regular rate Rhythm: regular rhythm GI: Palpation (GI): Soft to palpation Auscultation: normal bowel sounds Skin: General skin exam: no rashes or lesions noted Extrem: General: Yes normal to inspection and Yes no pedal edema Objective Data Labs 07/30/22 06:13 07/30/22 06:13 Labs: Laboratory Results - last 24 hr 07/29/22 07/29/22 07/29/22 07:01 11:14 15:48 WBC 7.6 RBC Hgb Hct MCV MCH MCHC RDW Plt Count MPV Absolute Nucleated RBC Nucleated RBC % (auto) Abs Neuts (Manual) 7.1 Lymphocytes # (Manual) 0.1 L Monocytes # (Manual) 0.1 Metamyelocytes # 0.2 Myelocytes # 0.1 Promyelocytes # 0.1 VBG pH VBG pCO2 VBG pO2 VBG HCO3 VBG O2 Saturation VBG Base Excess Sodium Potassium Chloride Carbon Dioxide Anion Gap BUN Creatinine Estim Creat Clear Calc Estimated GFR POC Glucose 229 H Random Glucose Calcium Total Bilirubin Direct Bilirubin AST ALT Alkaline Phosphatase Total Protein Albumin C. difficile Tox B Gene NEGATIVE 07/29/22 07/29/22 07/30/22 15:57 19:15 06:13 WBC 3.6 L RBC 3.68 L Hgb 10.6 L Hct 33.5 L MCV 91.0 MCH 28.8 MCHC 31.6 RDW 13.8 Plt Count 224 MPV 9.2 L Absolute Nucleated RBC 0.000 Nucleated RBC % (auto) 0.0 Abs Neuts (Manual) Lymphocytes # (Manual) Monocytes # (Manual) Metamyelocytes # Myelocytes # Promyelocytes # VBG pH VBG pCO2 VBG pO2 VBG HCO3 VBG O2 Saturation VBG Base Excess Sodium Potassium Chloride Carbon Dioxide Anion Gap BUN Creatinine Estim Creat Clear Calc Estimated GFR POC Glucose 227 H 177 H Random Glucose Calcium Total Bilirubin Direct Bilirubin AST ALT Alkaline Phosphatase Total Protein Albumin C. difficile Tox B Gene 07/30/22 07/30/22 07/30/22 06:13 06:21 07:01 WBC RBC Hgb Hct MCV MCH MCHC RDW Plt Count MPV Absolute Nucleated RBC Nucleated RBC % (auto) Abs Neuts (Manual) Lymphocytes # (Manual) Monocytes # (Manual) Metamyelocytes # Myelocytes # Promyelocytes # VBG pH 7.22 L VBG pCO2 48 VBG pO2 63 VBG HCO3 20 L VBG O2 Saturation 89.0 VBG Base Excess -7.4 Sodium 133 L Potassium 3.3 Chloride 94 L Carbon Dioxide 18 L Anion Gap 24 H BUN 75 H Creatinine 5.52 H* Estim Creat Clear Calc 11.3 Estimated GFR 8 POC Glucose 161 H Random Glucose 194 H Calcium 7.2 L Total Bilirubin 0.1 Direct Bilirubin < 0.2 AST 22 ALT 19 Alkaline Phosphatase 62 Total Protein 5.5 L Albumin 3.1 L C. difficile Tox B Gene Microbiology Microbiology Results: Microbiology 07/28/22 21:47 Urine clean catch - Urine hernandez top Urine Culture - Final No growth. 07/28/22 17:26 Blood - Venous Blood Culture - Preliminary Prelim: GNR Gram Stain only 07/28/22 17:26 Blood - Venous Blood Culture - Preliminary Prelim: GNR Gram Stain only Procedures Date of Service Date of Service: 07/31/22 Assessment & Plan Assessment and plan (1) Acute renal failure: Status: Acute Plan 52-year-old woman with multiple medical problems who has had essentially normal renal function with a serum creatinine of 0.6 mg/dL about 8 months ago. She comes in with severe diarrhea and currently has acute kidney injury. The different diagnosis for acute kidney injury would include hypoperfusion from severe diarrhea. However the urine sediments reveal some RBCs and protein therefore glomerular nephritis or interstitial nephritis should be considered. Recent imaging study did not reveal any significant obstruction. Recommendations. Optimize blood pressure. Avoid hypotension. Agree with IV fluid Keep intake more than output. Monitor urine output. No absolute indication for dialysis. Serology ordered Keep jimenez Watch UO If she is oliguric, can administer LAsix 80 mg IV x 1 in attempt to convert to Non oliguroc ATN We will follow along with the team. Time Spent With Patient Time: Total time managing care of this patient today ____ minutes. Progress Note: Quality Stroke Does the patient have a stroke diagnosis?: No
[2022-07-30 10:47] LABS: Creatinine Urine 116.29 mg/dL; Total Protein Urine Random 155 mg/dL (<12)
[2022-07-30] MEDS: metroNIDAZOLE/NS 500 MG/100 ML PIGGYBACK 100 MG IV ×2 (11:01→17:43)
[2022-07-30 11:02] LABS: Glucose, Whole Blood 164 mg/dL (60-115)
--- NOTE | 2022-07-30 12:01 | P.CNGI_ITS ---
History of Present Illness Data of Consult Service Date: 07/30/22 Requesting physician: Paige Steele / [facility] Primary Care Provider: Kelli Benavides MD HPI Reason for consult: GNR bacteremia, ?from biliary source 51yo F with morbid obesity, asthma/COPD overlap, obesity hypoventilation, chronic hypoxic/hypercapneic resp failure on 2L of O2 + nocturnal BiPAP, hypogammaglobulinemia on IVIg, opioid dependence on methadone, DM2, HTN who I am asked to see for assessment for GNB. Patient presented initially with nausea/vomiting/diarrhea, causing hypotension which then led to acute on chronic resp failure and VERONIKA. During work up found to have distended GB on US and concern for acalculous cholecystitis. LFT have been surprisingly nml. stool pcr was pos for salmonella UA with small bld and protein, neg for nitrites hx from pt limited, drowsy at times, vague answers to direct qns Review of Systems Review of Systems: Yes Unobtainable due to mental status PMFSH Past Medical History Medical History Abdominal pain Abnormal chest x-ray Acute respiratory failure Aspiration into airway Asthma-COPD overlap syndrome Cellulitis Chronic constipation Chronic respiratory failure Chronic respiratory failure Congestive heart failure COPD (chronic obstructive pulmonary disease) COPD exacerbation COPD mixed type Cor pulmonale Diabetes mellitus Essential hypertension Hyperlipidemia, unspecified Hypertensive cardiovascular disease Hypogammaglobulinemia Leukocytosis Limb swelling Morbid obesity Morbid obesity Opioid dependence CHITO (obstructive sleep apnea) Poor dentition Pulmonary congestion Pulmonary nodule Rib fractures Status asthmaticus with COPD (chronic obstructive pulmonary disease) Tobacco abuse Type 2 diabetes mellitus Type 2 diabetes mellitus with unspecified complications Vomiting Family History Family History Father Diabetes Other Asthma Surgical History Surgical History H/O tubal ligation Social History Social History Household Members: Family Household Members Other:: daughter Housing: Apartment Do you presently have visiting nurse or other home services: Yes Unable to assess alcohol history related to: Unknown Alcohol intake: never Patient Tobacco Use Status: Former Tobacco user Quit Date: February 2022 Tobacco use type: Cigarette Cigarettes Per Day: 1 Years Smoked: 35 e-Cigarette/Vaping Use: Currently Using Second Hand Smoke Exposure: No Use of substances other than those prescribed or required for medical reasons: No Substance Use Type: Opiates Currently Displaying Signs/Symptoms of Drug Intoxication Withdrawal: No Have you been hit, kicked, punched, or otherwise hurt by someone within the past year? If so, by whom?: No Is there a partner from a previous relationship who is making you feel unsafe now?: No Are you made to feel afraid or neglected: No Advance Directives: Yes Advance Directives on File: Yes Advance Directives Date on File: 06/12/21 Do you have thoughts of harming others: None Do you have a plan to hurt others: No Plan Nutrition Risks: Difficulty swallowing Patient : No service: No Current occupational status: unemployed and disabled Meds Allergies Allergy/AdvReac Type Severity Reaction Status Date / Time No Known Allergies Allergy Verified 05/27/22 10:15 [No Known Allergies*] Active Medications: Current Medications Acetaminophen (Acetaminophen 325 Mg Tablet) 650 mg PO Q6H PRN PRN Reason: Pain, Mild (Pain Scale 1-3) Last Admin: 07/30/22 06:20 Dose: 650 mg Al Hydroxide/Mg Hydroxide (Magnesium Hydrox/Alum Hydrox 30 Ml Oral.Susp) 30 ml PO Q4H PRN PRN Reason: heartburn Last Admin: 07/29/22 17:55 Dose: 30 ml Albuterol/Ipratropium (Albuterol/Iprat 2.5/0.5mg 3 Ml Ampul.Neb) 3 ml INHALE RQ4H PRN PRN Reason: Shortness of Breath/Wheezing Albuterol/Ipratropium (Albuterol/Iprat 2.5/0.5mg 3 Ml Ampul.Neb) 3 ml INHALE RQ4H WHILE AWAKE ANA Last Admin: 07/30/22 09:23 Dose: 3 ml Atorvastatin Calcium (Atorvastatin Calcium 20 Mg Tablet) 20 mg PO DAILY ANA Last Admin: 07/30/22 09:22 Dose: 20 mg Bupropion HCl (Bupropion Hcl 100 Mg Tablet) 100 mg PO DAILY ANA Last Admin: 07/30/22 09:22 Dose: 100 mg Clonazepam (Clonazepam 1 Mg Tablet) 1 mg PO BID PRN PRN Reason: Anxiety Last Admin: 07/29/22 22:17 Dose: 1 mg Diltiazem HCl (Diltiazem Hcl Cd 180 Mg Cap.Er.24h) 360 mg PO DAILY [facility]; Protoco l Last Admin: 07/29/22 09:56 Dose: 360 mg Ergocalciferol (Ergocalciferol (Vitamin D2) 1,250 Mcg Capsule) 1,250 mcg PO Q7D [facility] Last Admin: 07/29/22 12:09 Dose: 1,250 mcg Gabapentin (Gabapentin 300 Mg Capsule) 300 mg PO BID [facility] Last Admin: 07/30/22 09:22 Dose: 300 mg Glucose (Glucose Gel 15 Gm Gel..Gram.) 15 gm PO Q15M PRN; Protocol PRN Reason: per Hypoglycemia Standing Ord. Glucose (Glucose Gel 15 Gm Gel..Gram.) 15 gm PO Q15M PRN; Protocol PRN Reason: per Hypoglycemia Standing Ord. Heparin Sodium (Porcine) (Heparin Sodium,Porcine 5,000 Unit/Ml Vial) 5,000 unit SUBCUT Q12H [facility] Last Admin: 07/30/22 00:49 Dose: 5,000 unit Hydralazine HCl (Hydralazine Hcl 25 Mg Tablet) 25 mg PO TID [facility]; Protocol Last Admin: 07/29/22 09:56 Dose: 25 mg Dextrose (D10) 250 mls @ 750 mls/hr IV Q15M PRN; Protocol PRN Reason: per Hypoglycemia Standing Ord. Dextrose (D10) 250 mls @ 750 mls/hr IV Q15M PRN; Protocol PRN Reason: per Hypoglycemia Standing Ord. Ceftriaxone Sodium 2 gm/ (Sodium Chloride) 50 mls @ 100 mls/hr IV Q24H [facility] Last Infusion: 07/30/22 09:52 Dose: Infused Sodium Chloride (Ns) 1,000 mls @ 150 mls/hr IVCONT .Q6H40M [facility] Last Admin: 07/30/22 09:22 Dose: 150 mls/hr Metronidazole (Flagyl) 500 mg in 100 mls @ 100 mls/hr IV Q8H [facility] Last Admin: 07/30/22 11:01 Dose: 100 mls/hr Insulin Glargine (Insulin Glargine,Hum.Rec.Anlog 100 Unit/Ml 10 Ml Vial) 35 unit SUBCUT BEDTIME [facility] Last Admin: 07/29/22 20:33 Dose: 35 unit Insulin Human Lispro (Insulin Lispro 100 Unit/Ml 3 Ml Vial) 0 unit SUBCUT QIDACHS [facility]; Protocol Last Admin: 07/30/22 08:28 Dose: 2 unit Lamotrigine (Lamotrigine 25 Mg Tablet) 150 mg PO BID [facility] Last Admin: 07/30/22 09:22 Dose: 150 mg Lidocaine (Lidocaine 4 % Patch Adh..Patch) 1 patch TRANSDERMA DAILY [facility] Last Admin: 07/30/22 09:23 Dose: 1 patch Lisinopril (Lisinopril 40 Mg Tablet) 40 mg PO DAILY [facility]; Protocol Last Admin: 07/29/22 09:56 Dose: 40 mg Loperamide HCl (Loperamide Hcl 2 Mg Capsule) 4 mg PO Q4H PRN PRN Reason: diarrhea Last Admin: 07/30/22 06:20 Dose: 4 mg Loratadine (Loratadine 10 Mg Tablet) 10 mg PO DAILY [facility] Last Admin: 07/30/22 09:22 Dose: 10 mg Methadone HCl (Methadone Hcl 20 Mg/2 Ml Oral.Conc) 50 mg PO DAILY [facility] Last Admin: 07/30/22 09:22 Dose: 50 mg Methylprednisolone Sodium Succinate (Methylprednisolone Sod Succ 40 Mg/Ml Vial) 40 mg IVPUSH Q12H [facility] Last Admin: 07/30/22 06:20 Dose: 40 mg Montelukast Sodium (Montelukast Sodium 10 Mg Tablet) 10 mg PO BEDTIME [facility] Last Admin: 07/29/22 20:32 Dose: 10 mg Non-Formulary Medication (Roflumilast [Daliresp]) 500 mcg PO DAILY [facility] Omeprazole (Omeprazole 40 Mg Capsule.Dr) 40 mg PO BID@0630,1630 [facility] Last Admin: 07/30/22 06:19 Dose: 40 mg Ondansetron HCl (Ondansetron Hcl 4 Mg/2 Ml Vial) 4 mg IVPUSH Q8H PRN PRN Reason: Nausea and Vomiting Last Admin: 07/29/22 17:10 Dose: 4 mg Pharmacy Consult (Consult Rx Perform Med Rec) 1 each MISCELLANE ONCE PRN PRN Reason: Consult order Simethicone (Simethicone 80 Mg Tab.Chew) 80 mg PO QIDWMHS PRN PRN Reason: Abdominal Distention Sodium Chloride (0.9 % Sodium Chloride Flush 3 Ml Syringe) 3 ml IVFLUSH QSHIFT [facility] Last Admin: 07/30/22 08:28 Dose: Not Given Theophylline (Theophylline Anhydrous Er 400 Mg Tab.Er.24h) 400 mg PO Q12H [facility] Last Admin: 07/30/22 09:22 Dose: 400 mg Tiotropium [place] (Tiotropium [place] 18 Mcg Cap.W.Dev) 1 puff INHALE DAILY [facility] Last Admin: 07/30/22 09:23 Dose: 1 puff Home Medications Medication Instructions Recorded Confirmed Last Taken Type albuterol sulfate 90 mcg/actuation 2 puff inhalation Q4H PRN 12/30/19 07/29/22 07/28/22 23:10 History aerosol inhaler (ProAir HFA) Shortness Of Breath Or Wheezing loratadine 10 mg tablet (Claritin) 10 mg PO DAILY 12/30/19 07/29/22 04/07/22 History montelukast 10 mg tablet 10 mg PO BEDTIME 12/30/19 07/29/22 07/28/22 23:14 History diltiazem HCl 360 mg capsule,24 360 mg PO DAILY 11/16/20 07/29/22 04/07/22 History hr,extended release (Tiadylt ER) roflumilast 500 mcg tablet 500 mcg PO DAILY 11/16/20 07/29/22 07/28/22 23:15 History (Daliresp) rosuvastatin 5 mg tablet 5 mg PO BEDTIME 11/16/20 07/29/22 07/28/22 23:15 History insulin lispro 100 unit/mL See Protocol subcut TIDAC 12/14/20 07/29/22 07/28/22 23:16 History subcutaneous solution (Humalog U-100 Insulin) metformin 500 mg tablet,extended 1,000 mg PO BID 05/18/21 07/29/22 04/07/22 History release 24 hr ergocalciferol (vitamin D2) 1,250 1,250 mcg PO QWEEK 06/06/21 07/29/22 Unknown History mcg (50,000 unit) capsule methadone 10 mg/mL oral concentrate 50 mg PO DAILY 06/06/21 07/29/22 07/28/22 History lisinopril 40 mg tablet 40 mg PO DAILY 07/30/21 07/29/22 04/07/22 History hydralazine 25 mg tablet 25 mg PO TID 11/02/21 07/29/22 07/28/22 23:12 History insulin lispro 100 unit/mL 4 unit subcut TIDAC 11/02/21 07/29/22 04/07/22 History subcutaneous solution omeprazole 40 mg capsule,delayed 40 mg PO DAILY@0630 11/02/21 07/29/22 07/28/22 23:14 History release clonazepam 1 mg tablet 1 mg PO BID PRN Anxiety 06/28/22 07/29/22 Unknown History ibuprofen 600 mg tablet 600 mg PO Q8H PRN Pain 06/28/22 07/29/22 Unknown History alendronate 70 mg tablet 70 mg PO QWEEK 07/29/22 07/29/22 Unknown History bupropion HCl 100 mg tablet 100 mg PO DAILY 07/29/22 07/29/22 Unknown History lamotrigine 150 mg tablet 150 mg PO BID 07/29/22 07/29/22 Unknown History lidocaine 5 % topical patch 1 patch topical DAILY 07/29/22 07/29/22 Unknown History prednisone 10 mg tablet 20 mg PO DAILY 07/29/22 07/29/22 Unknown History sodium chloride 7 % for 4 ml inhalation BID 07/29/22 07/29/22 Unknown History nebulization Physical Exam Vital Signs: Vital Signs: Last Vital Signs Temp 98.2 F 07/30/22 11:23 Pulse 106 H 07/30/22 11:23 Resp 22 H 07/30/22 11:23 BP 120/63 07/30/22 11:23 Pulse Ox 84 L 07/30/22 11:23 O2 Del Method Nasal Cannula 07/30/22 11:23 O2 Flow Rate 3 07/30/22 11:23 FiO2 30 07/30/22 03:45 Oxygen Flow Rate 2 07/28/22 16:28 BMI result Body Mass Index 38.4 EXAM: GENERAL: The patient is obese, vacant at times VITAL SIGNS:see workflow HEENT: Nonicteric sclerae, PERRLA, EOMI. Oropharynx clear. Moist mucous membranes. Conjunctivae appear well perfused. No thyroid mass. CHEST: Chest wall is nontender. HEART: Regular rate and rhythm without murmurs. LUNGS: Clear to auscultation bilaterally. ABDOMEN: Soft, positive bowel sounds, nontender, no organomegaly.no flank tenderness SKIN: No rash, no excessive bruising, petechiae, or purpura. NEUROLOGIC: Cranial nerves II-XII intact without motor/sensory deficit. GI: Palpation (GI): Tenderness to palpation present (GI) other (diffusely,mostly RUQ) Results Labs 07/30/22 06:13 07/30/22 06:13 Labs: Short CBC 07/30/22 Range/Units 06:13 WBC 3.6 L (4.8-10.8) X10*3/uL Hgb 10.6 L (12.0-16.0) g/dl Hct 33.5 L (37.0-47.0) % Plt Count 224 (160-400) X10*3/uL BMP 07/30/22 06:13 Sodium 133 L Potassium 3.3 Chloride 94 L Carbon Dioxide 18 L BUN 75 H Creatinine 5.52 H* Calcium 7.2 L Liver Function 07/30/22 Range/Units 06:13 Total Bilirubin 0.1 (0.0-1.0) mg/dL Direct Bilirubin < 0.2 (0.0-0.5) mg/dL AST 22 (5-31) U/L ALT 19 (0-31) U/L Alkaline Phosphatase 62 (39-117) U/L Albumin 3.1 L (3.5-5.0) g/dL Microbiology Microbiology Results: Microbiology 07/28/22 21:47 Urine clean catch - Urine hernandez top Urine Culture - Final No growth. 07/28/22 17:26 Blood - Venous Blood Culture - Preliminary Prelim: GNR Gram Stain only 07/28/22 17:26 Blood - Venous Blood Culture - Preliminary Prelim: GNR Gram Stain only Assessment and Plan (1) Gastroenteritis, acute: Status: Acute (2) Salmonella gastroenteritis: Status: Acute Plan 1/ Acute illness on background of chronic illnesses and lo immunity, prob has GNB related to salmonella and gastroenteritis PLAN: 1/ await HIDA 2/ cont wth abx as doing 3/ avoid nsaid, supportive care as doing Time Spent With Patient Time: Total time managing care of this patient today ____ minutes. Procedures Date of Service Date of Service: 07/30/22
[2022-07-30 13:04] LABS: Campylobacter Not Detected (Not Detect.); Plesiomonas shigelloides Not Detected (Not Detect.)
[2022-07-30 13:06] LABS: Adenovirus F 40/41 Not Detected (Not Detect.); Astrovirus Not Detected (Not Detect.); Cryptosporidium Not Detected (Not Detect.); Cyclospora cayetanensis Not Detected (Not Detect.); E. coli EAEC Not Detected (Not Detect.); E. coli EPEC Not Detected (Not Detect.); E. coli ETEC Not Detected (Not Detect.); E. coli STEC Not Detected (Not Detect.); Entamoeba histolytica Not Detected (Not Detect.); Giardia lamblia Not Detected (Not Detect.); Norovirus GI/GII Not Detected (Not Detect.); Rotavirus A Not Detected (Not Detect.); Salmonella Detected (Not Detect.); Sapovirus Not Detected (Not Detect.); Shigella sp./EIEC Not Detected (Not Detect.); Vibrio Not Detected (Not Detect.); Vibrio Cholerae Not Detected (Not Detect.); Yersinia enterocolitica Not Detected (Not Detect.)
--- NOTE | 2022-07-30 15:40 | W.PM.IDCN ---
History of Present Illness Data of Consult Service Date: 07/30/22 Requesting physician: Paige Steele Primary Care Provider: Kelli Benavides MD HPI Reason for consult: salmonella stool She presents to ER with fever to 101 as well as generalized 7/10 abdominal pain and found to have leukopenia and anemia. She had symptoms for three days and had nausea as well. She has gallstones found and getting hida scan. Review of Systems Review of Systems: Yes all other systems are reviewed and are negative [facility] Past Medical History Medical History Abdominal pain Abnormal chest x-ray Acute respiratory failure Aspiration into airway Asthma-COPD overlap syndrome Cellulitis Chronic constipation Chronic respiratory failure Chronic respiratory failure Congestive heart failure COPD (chronic obstructive pulmonary disease) COPD exacerbation COPD mixed type Cor pulmonale Diabetes mellitus Essential hypertension Hyperlipidemia, unspecified Hypertensive cardiovascular disease Hypogammaglobulinemia Leukocytosis Limb swelling Morbid obesity Morbid obesity Opioid dependence CHITO (obstructive sleep apnea) Poor dentition Pulmonary congestion Pulmonary nodule Rib fractures Status asthmaticus with COPD (chronic obstructive pulmonary disease) Tobacco abuse Type 2 diabetes mellitus Type 2 diabetes mellitus with unspecified complications Vomiting Family History Family History Father Diabetes Other Asthma Family history: reviewed and not pertinent Surgical History Surgical History H/O tubal ligation Social History Social History Household Members: Family Household Members Other:: daughter Housing: Apartment Do you presently have visiting nurse or other home services: Yes Unable to assess alcohol history related to: Unknown Alcohol intake: never Patient Tobacco Use Status: Former Tobacco user Quit Date: February 2022 Tobacco use type: Cigarette Cigarettes Per Day: 1 Years Smoked: 35 e-Cigarette/Vaping Use: Currently Using Second Hand Smoke Exposure: No Use of substances other than those prescribed or required for medical reasons: No Substance Use Type: Opiates Currently Displaying Signs/Symptoms of Drug Intoxication Withdrawal: No Have you been hit, kicked, punched, or otherwise hurt by someone within the past year? If so, by whom?: No Is there a partner from a previous relationship who is making you feel unsafe now?: No Are you made to feel afraid or neglected: No Advance Directives: Yes Advance Directives on File: Yes Advance Directives Date on File: 06/12/21 Do you have thoughts of harming others: None Do you have a plan to hurt others: No Plan Nutrition Risks: Difficulty swallowing Patient : No service: No Current occupational status: unemployed and disabled Meds Allergies Allergy/AdvReac Type Severity Reaction Status Date / Time No Known Allergies Allergy Verified 05/27/22 10:15 [No Known Allergies*] Active Medications: Current Medications Acetaminophen (Acetaminophen 325 Mg Tablet) 650 mg PO Q6H PRN PRN Reason: Pain, Mild (Pain Scale 1-3) Last Admin: 07/30/22 06:20 Dose: 650 mg Al Hydroxide/Mg Hydroxide (Magnesium Hydrox/Alum Hydrox 30 Ml Oral.Susp) 30 ml PO Q4H PRN PRN Reason: heartburn Last Admin: 07/29/22 17:55 Dose: 30 ml Albuterol/Ipratropium (Albuterol/Iprat 2.5/0.5mg 3 Ml Ampul.Neb) 3 ml INHALE RQ4H PRN PRN Reason: Shortness of Breath/Wheezing Albuterol/Ipratropium (Albuterol/Iprat 2.5/0.5mg 3 Ml Ampul.Neb) 3 ml INHALE RQ4H WHILE AWAKE [facility] Last Admin: 07/30/22 12:09 Dose: 3 ml Atorvastatin Calcium (Atorvastatin Calcium 20 Mg Tablet) 20 mg PO DAILY [facility] Last Admin: 07/30/22 09:22 Dose: 20 mg Bupropion HCl (Bupropion Hcl 100 Mg Tablet) 100 mg PO DAILY [facility] Last Admin: 07/30/22 09:22 Dose: 100 mg Clonazepam (Clonazepam 1 Mg Tablet) 1 mg PO BID PRN PRN Reason: Anxiety Last Admin: 07/29/22 22:17 Dose: 1 mg Diltiazem HCl (Diltiazem Hcl Cd 180 Mg Cap.Er.24h) 360 mg PO DAILY [facility]; Protocol Last Admin: 07/29/22 09:56 Dose: 360 mg Ergocalciferol (Ergocalciferol (Vitamin D2) 1,250 Mcg Capsule) 1,250 mcg PO Q7D [facility] Last Admin: 07/29/22 12:09 Dose: 1,250 mcg Gabapentin (Gabapentin 300 Mg Capsule) 300 mg PO BID [facility] Last Admin: 07/30/22 09:22 Dose: 300 mg Glucose (Glucose Gel 15 Gm Gel..Gram.) 15 gm PO Q15M PRN; Protocol PRN Reason: per Hypoglycemia Standing Ord. Glucose (Glucose Gel 15 Gm Gel..Gram.) 15 gm PO Q15M PRN; Protocol PRN Reason: per Hypoglycemia Standing Ord. Heparin Sodium (Porcine) (Heparin Sodium,Porcine 5,000 Unit/Ml Vial) 5,000 unit SUBCUT Q12H [facility] Last Admin: 07/30/22 11:59 Dose: 5,000 unit Hydralazine HCl (Hydralazine Hcl 25 Mg Tablet) 25 mg PO TID [facility]; Protocol Last Admin: 07/29/22 09:56 Dose: 25 mg Dextrose (D10) 250 mls @ 750 mls/hr IV Q15M PRN; Protocol PRN Reason: per Hypoglycemia Standing Ord. Dextrose (D10) 250 mls @ 750 mls/hr IV Q15M PRN; Protocol PRN Reason: per Hypoglycemia Standing Ord. Ceftriaxone Sodium 2 gm/ (Sodium Chloride) 50 mls @ 100 mls/hr IV Q24H [facility] Last Infusion: 07/30/22 09:52 Dose: Infused Sodium Chloride (Ns) 1,000 mls @ 150 mls/hr IVCONT .Q6H40M [facility] Last Admin: 07/30/22 09:22 Dose: 150 mls/hr Metronidazole (Flagyl) 500 mg in 100 mls @ 100 mls/hr IV Q8H [facility] Last Infusion: 07/30/22 12:04 Dose: Infused Insulin Glargine (Insulin Glargine,Hum.Rec.Anlog 100 Unit/Ml 10 Ml Vial) 35 unit SUBCUT BEDTIME [facility] Last Admin: 07/29/22 20:33 Dose: 35 unit Insulin Human Lispro (Insulin Lispro 100 Unit/Ml 3 Ml Vial) 0 unit SUBCUT QIDACHS [facility]; Protocol Last Admin: 07/30/22 12:00 Dose: 2 unit Lamotrigine (Lamotrigine 25 Mg Tablet) 150 mg PO BID [facility] Last Admin: 07/30/22 09:22 Dose: 150 mg Lidocaine (Lidocaine 4 % Patch Adh..Patch) 1 patch TRANSDERMA DAILY [facility] Last Admin: 07/30/22 09:23 Dose: 1 patch Lisinopril (Lisinopril 40 Mg Tablet) 40 mg PO DAILY [facility]; Protocol Last Admin: 07/29/22 09:56 Dose: 40 mg Loperamide HCl (Loperamide Hcl 2 Mg Capsule) 4 mg PO Q4H PRN PRN Reason: diarrhea Last Admin: 07/30/22 11:59 Dose: 4 mg Loratadine (Loratadine 10 Mg Tablet) 10 mg PO DAILY [facility] Last Admin: 07/30/22 09:22 Dose: 10 mg Methadone HCl (Methadone Hcl 20 Mg/2 Ml Oral.Conc) 50 mg PO DAILY [facility] Last Admin: 07/30/22 09:22 Dose: 50 mg Methylprednisolone Sodium Succinate (Methylprednisolone Sod Succ 40 Mg/Ml Vial) 40 mg IVPUSH Q12H [facility] Last Admin: 07/30/22 06:20 Dose: 40 mg Montelukast Sodium (Montelukast Sodium 10 Mg Tablet) 10 mg PO BEDTIME [facility] Last Admin: 07/29/22 20:32 Dose: 10 mg Non-Formulary Medication (Roflumilast [Daliresp]) 500 mcg PO DAILY [facility] Omeprazole (Omeprazole 40 Mg Capsule.Dr) 40 mg PO BID@0630,1630 [facility] Last Admin: 07/30/22 06:19 Dose: 40 mg Ondansetron HCl (Ondansetron Hcl 4 Mg/2 Ml Vial) 4 mg IVPUSH Q8H PRN PRN Reason: Nausea and Vomiting Last Admin: 07/29/22 17:10 Dose: 4 mg Pharmacy Consult (Consult Rx Perform Med Rec) 1 each MISCELLANE ONCE PRN PRN Reason: Consult order Simethicone (Simethicone 80 Mg Tab.Chew) 80 mg PO QIDWMHS PRN PRN Reason: Abdominal Distention Sodium Chloride (0.9 % Sodium Chloride Flush 3 Ml Syringe) 3 ml IVFLUSH QSHIFT [facility] Last Admin: 07/30/22 08:28 Dose: Not Given Theophylline (Theophylline Anhydrous Er 400 Mg Tab.Er.24h) 400 mg PO Q12H [facility] Last Admin: 07/30/22 09:22 Dose: 400 mg Tiotropium Keenes (Tiotropium Keenes 18 Mcg Cap.W.Dev) 1 puff INHALE DAILY [facility] Last Admin: 07/30/22 09:23 Dose: 1 puff Home Medications Medication Instructions Recorded Confirmed Last Taken Type albuterol sulfate 90 mcg/actuation 2 puff inhalation Q4H PRN 12/30/19 07/29/22 07/28/22 23:10 History aerosol inhaler (ProAir HFA) Shortness Of Breath Or Wheezing loratadine 10 mg tablet (Claritin) 10 mg PO DAILY 12/30/19 07/29/22 04/07/22 History montelukast 10 mg tablet 10 mg PO BEDTIME 12/30/19 07/29/22 07/28/22 23:14 History diltiazem HCl 360 mg capsule,24 360 mg PO DAILY 11/16/20 07/29/22 04/07/22 History hr,extended release (Tiadylt ER) roflumilast 500 mcg tablet 500 mcg PO DAILY 11/16/20 07/29/22 07/28/22 23:15 History (Daliresp) rosuvastatin 5 mg tablet 5 mg PO BEDTIME 11/16/20 07/29/22 07/28/22 23:15 History insulin lispro 100 unit/mL See Protocol subcut TIDAC 12/14/20 07/29/22 07/28/22 23:16 History subcutaneous solution (Humalog U-100 Insulin) metformin 500 mg tablet,extended 1,000 mg PO BID 05/18/21 07/29/22 04/07/22 History release 24 hr ergocalciferol (vitamin D2) 1,250 1,250 mcg PO QWEEK 06/06/21 07/29/22 Unknown History mcg (50,000 unit) capsule methadone 10 mg/mL oral concentrate 50 mg PO DAILY 06/06/21 07/29/22 07/28/22 History lisinopril 40 mg tablet 40 mg PO DAILY 07/30/21 07/29/22 04/07/22 History hydralazine 25 mg tablet 25 mg PO TID 11/02/21 07/29/22 07/28/22 23:12 History insulin lispro 100 unit/mL 4 unit subcut TIDAC 11/02/21 07/29/22 04/07/22 History subcutaneous solution omeprazole 40 mg capsule,delayed 40 mg PO DAILY@0630 11/02/21 07/29/22 07/28/22 23:14 History release clonazepam 1 mg tablet 1 mg PO BID PRN Anxiety 06/28/22 07/29/22 Unknown History ibuprofen 600 mg tablet 600 mg PO Q8H PRN Pain 06/28/22 07/29/22 Unknown History alendronate 70 mg tablet 70 mg PO QWEEK 07/29/22 07/29/22 Unknown History bupropion HCl 100 mg tablet 100 mg PO DAILY 07/29/22 07/29/22 Unknown History lamotrigine 150 mg tablet 150 mg PO BID 07/29/22 07/29/22 Unknown History lidocaine 5 % topical patch 1 patch topical DAILY 07/29/22 07/29/22 Unknown History prednisone 10 mg tablet 20 mg PO DAILY 07/29/22 07/29/22 Unknown History sodium chloride 7 % for 4 ml inhalation BID 07/29/22 07/29/22 Unknown History nebulization Physical Exam Vital Signs: Vital Signs: Last Vital Signs Temp 98.2 F 07/30/22 11:23 Pulse 97 07/30/22 12:09 Resp 20 07/30/22 12:09 BP 120/63 07/30/22 11:23 Pulse Ox 84 L 07/30/22 11:23 O2 Del Method Nasal Cannula 07/30/22 11:23 O2 Flow Rate 3 07/30/22 11:23 FiO2 30 07/30/22 03:45 Oxygen Flow Rate 2 07/28/22 16:28 BMI result Body Mass Index 38.4 GI: Palpation (GI): Tenderness to palpation present (GI) other (diffusely,mostly RUQ) Results Labs 07/30/22 06:13 07/30/22 06:13 Labs: Short CBC 07/30/22 Range/Units 06:13 WBC 3.6 L (4.8-10.8) X10*3/uL Hgb 10.6 L (12.0-16.0) g/dl Hct 33.5 L (37.0-47.0) % Plt Count 224 (160-400) X10*3/uL BMP 07/30/22 06:13 Sodium 133 L Potassium 3.3 Chloride 94 L Carbon Dioxide 18 L BUN 75 H Creatinine 5.52 H* Calcium 7.2 L Liver Function 07/30/22 Range/Units 06:13 Total Bilirubin 0.1 (0.0-1.0) mg/dL Direct Bilirubin < 0.2 (0.0-0.5) mg/dL AST 22 (5-31) U/L ALT 19 (0-31) U/L Alkaline Phosphatase 62 (39-117) U/L Albumin 3.1 L (3.5-5.0) g/dL Microbiology Microbiology Results: Microbiology 07/28/22 21:47 Urine clean catch - Urine hernandez top Urine Culture - Final No growth. 07/28/22 17:26 Blood - Venous Blood Culture - Preliminary Prelim: GNR Gram Stain only 07/28/22 17:26 Blood - Venous Blood Culture - Preliminary Prelim: GNR Gram Stain only Assessment and Plan (1) Gastroenteritis, acute: Status: Acute She has possible cholecystitis with Salmonella implicated. She has leukopenia,anemia and hyponatremia with fever and hepatitis. She could have early hemophagocytic histiocytosis (HLH) or Salmonella sepsis with gallbladder source. HLH is immune activation syndrome so would follow temperature,CBC to see if leukopenia or anemia worsens and check ferritin levels. Check HIV hepatitis C. If HLH develops with worsening hematologic parameters (hemoglobin under 9, platelets under 100 or ANC less than 1,000) would consider IVIG one mg per kg daily for two days. Plan Continue Ceftriaxone, convert to Ceftin eventually total 14 days. Also continue metronidazole for now. Await HIDA scan and Surgery evaluation. Time Spent With Patient Time: Total time managing care of this patient today ____ minutes.
[2022-07-30 17:17] LABS: Glucose, Whole Blood 99 mg/dL (60-115)
--- NOTE | 2022-07-30 17:32 | P.CONGS_ITS ---
History of Present Illness Consult details Consult date: 07/30/22 Narrative: 52F with multiple medical problems, admitted for nausea, vomitting and diarrhea 2 days ago. She has acute on chronic respiratory failure as well. She fulfilled sepsis criteria on admission with lactic acidosis. Her blood cultures showed gm neg bacterimia. I have been consulted to rule out a biliary source i.e. acalculous cholecystitis. Her CT scan did not reveal any intraabdominal pathology. Her US showed a distended GB with wall thickening nor stones. Review of Systems Review of Systems: pain all over my body Constitutional: Constitutional: Denies chills and Denies fever(s) Cardiovascular: Cardiovascular: Reports dyspnea and Reports dyspnea on exertion Respiratory: Respiratory: Reports dyspnea and Reports dyspnea on exertion Gastrointestinal: Gastrointestinal: Reports diarrhea Genitourinary: Genitourinary: Denies hematuria Musculoskeletal: Musculoskeletal: Reports back pain, Reports myalgias and Reports arthralgias PMF Past Medical History Medical History Abdominal pain Abnormal chest x-ray Acute respiratory failure Aspiration into airway Asthma-COPD overlap syndrome Bacteremia Cellulitis Chronic constipation Chronic respiratory failure Chronic respiratory failure Congestive heart failure COPD (chronic obstructive pulmonary disease) COPD exacerbation COPD mixed type Cor pulmonale Diabetes mellitus Essential hypertension Hyperlipidemia, unspecified Hypertensive cardiovascular disease Hypogammaglobulinemia Leukocytosis Limb swelling Morbid obesity Morbid obesity Opioid dependence CHITO (obstructive sleep apnea) Poor dentition Pulmonary congestion Pulmonary nodule Rib fractures Status asthmaticus with COPD (chronic obstructive pulmonary disease) Tobacco abuse Type 2 diabetes mellitus Type 2 diabetes mellitus with unspecified complications Vomiting Family History Family History Father Diabetes Other Asthma Family history: reviewed and not pertinent Surgical History Surgical History H/O tubal ligation Social History Social History Household Members: Family Household Members Other:: daughter Housing: Apartment Do you presently have visiting nurse or other home services: Yes Unable to assess alcohol history related to: Unknown Alcohol intake: never Patient Tobacco Use Status: Former Tobacco user Quit Date: February 2022 Tobacco use type: Cigarette Cigarettes Per Day: 1 Years Smoked: 35 e-Cigarette/Vaping Use: Currently Using Second Hand Smoke Exposure: No Use of substances other than those prescribed or required for medical reasons: No Substance Use Type: Opiates Currently Displaying Signs/Symptoms of Drug Intoxication Withdrawal: No Have you been hit, kicked, punched, or otherwise hurt by someone within the past year? If so, by whom?: No Is there a partner from a previous relationship who is making you feel unsafe now?: No Are you made to feel afraid or neglected: No Advance Directives: Yes Advance Directives on File: Yes Advance Directives Date on File: 06/12/21 Do you have thoughts of harming others: None Do you have a plan to hurt others: No Plan Nutrition Risks: Difficulty swallowing Patient : No service: No Current occupational status: unemployed and disabled Meds Allergies Allergy/AdvReac Type Severity Reaction Status Date / Time No Known Allergies Allergy Verified 05/27/22 10:15 [No Known Allergies*] Active Medications: Current Medications Acetaminophen (Acetaminophen 325 Mg Tablet) 650 mg PO Q6H PRN PRN Reason: Pain, Mild (Pain Scale 1-3) Last Admin: 07/30/22 06:20 Dose: 650 mg Al Hydroxide/Mg Hydroxide (Magnesium Hydrox/Alum Hydrox 30 Ml Oral.Susp) 30 ml PO Q4H PRN PRN Reason: heartburn Last Admin: 07/29/22 17:55 Dose: 30 ml Albuterol/Ipratropium (Albuterol/Iprat 2.5/0.5mg 3 Ml Ampul.Neb) 3 ml INHALE RQ4H PRN PRN Reason: Shortness of Breath/Wheezing Albuterol/Ipratropium (Albuterol/Iprat 2.5/0.5mg 3 Ml Ampul.Neb) 3 ml INHALE RQ4H WHILE AWAKE [facility] Last Admin: 07/30/22 15:44 Dose: Not Given Atorvastatin Calcium (Atorvastatin Calcium 20 Mg Tablet) 20 mg PO DAILY [facility] Last Admin: 07/30/22 09:22 Dose: 20 mg Bupropion HCl (Bupropion Hcl 100 Mg Tablet) 100 mg PO DAILY [facility] Last Admin: 07/30/22 09:22 Dose: 100 mg Clonazepam (Clonazepam 1 Mg Tablet) 1 mg PO BID PRN PRN Reason: Anxiety Last Admin: 07/29/22 22:17 Dose: 1 mg Diltiazem HCl (Diltiazem Hcl Cd 180 Mg Cap.Er.24h) 360 mg PO DAILY [facility]; Protocol Last Admin: 07/29/22 09:56 Dose: 360 mg Ergocalciferol (Ergocalciferol (Vitamin D2) 1,250 Mcg Capsule) 1,250 mcg PO Q7D [facility] Last Admin: 07/29/22 12:09 Dose: 1,250 mcg Gabapentin (Gabapentin 300 Mg Capsule) 300 mg PO BID [facility] Last Admin: 07/30/22 09:22 Dose: 300 mg Glucose (Glucose Gel 15 Gm Gel..Gram.) 15 gm PO Q15M PRN; Protocol PRN Reason: per Hypoglycemia Standing Ord. Glucose (Glucose Gel 15 Gm Gel..Gram.) 15 gm PO Q15M PRN; Protocol PRN Reason: per Hypoglycemia Standing Ord. Heparin Sodium (Porcine) (Heparin Sodium,Porcine 5,000 Unit/Ml Vial) 5,000 unit SUBCUT Q12H [facility] Last Admin: 07/30/22 11:59 Dose: 5,000 unit Hydralazine HCl (Hydralazine Hcl 25 Mg Tablet) 25 mg PO TID [facility]; Protocol Last Admin: 07/29/22 09:56 Dose: 25 mg Dextrose (D10) 250 mls @ 750 mls/hr IV Q15M PRN; Protocol PRN Reason: per Hypoglycemia Standing Ord. Dextrose (D10) 250 mls @ 750 mls/hr IV Q15M PRN; Protocol PRN Reason: per Hypoglycemia Standing Ord. Ceftriaxone Sodium 2 gm/ (Sodium Chloride) 50 mls @ 100 mls/hr IV Q24H [facility] Last Infusion: 07/30/22 09:52 Dose: Infused Sodium Chloride (Ns) 1,000 mls @ 150 mls/hr IVCONT .Q6H40M [facility] Last Admin: 07/30/22 09:22 Dose: 150 mls/hr Metronidazole (Flagyl) 500 mg in 100 mls @ 100 mls/hr IV Q8H [facility] Last Infusion: 07/30/22 12:04 Dose: Infused Insulin Glargine (Insulin Glargine,Hum.Rec.Anlog 100 Unit/Ml 10 Ml Vial) 35 unit SUBCUT BEDTIME [facility] Last Admin: 07/29/22 20:33 Dose: 35 unit Insulin Human Lispro (Insulin Lispro 100 Unit/Ml 3 Ml Vial) 0 unit SUBCUT QIDACHS [facility]; Protocol Last Admin: 07/30/22 12:00 Dose: 2 unit Lamotrigine (Lamotrigine 25 Mg Tablet) 150 mg PO BID [facility] Last Admin: 07/30/22 09:22 Dose: 150 mg Lidocaine (Lidocaine 4 % Patch Adh..Patch) 1 patch TRANSDERMA DAILY [facility] Last Admin: 07/30/22 09:23 Dose: 1 patch Lisinopril (Lisinopril 40 Mg Tablet) 40 mg PO DAILY [facility]; Protocol Last Admin: 07/29/22 09:56 Dose: 40 mg Loperamide HCl (Loperamide Hcl 2 Mg Capsule) 4 mg PO Q4H PRN PRN Reason: diarrhea Last Admin: 07/30/22 11:59 Dose: 4 mg Loratadine (Loratadine 10 Mg Tablet) 10 mg PO DAILY [facility] Last Admin: 07/30/22 09:22 Dose: 10 mg Methadone HCl (Methadone Hcl 20 Mg/2 Ml Oral.Conc) 50 mg PO DAILY [facility] Last Admin: 07/30/22 09:22 Dose: 50 mg Methylprednisolone Sodium Succinate (Methylprednisolone Sod Succ 40 Mg/Ml Vial) 40 mg IVPUSH Q12H [facility] Last Admin: 07/30/22 06:20 Dose: 40 mg Montelukast Sodium (Montelukast Sodium 10 Mg Tablet) 10 mg PO BEDTIME [facility] Last Admin: 07/29/22 20:32 Dose: 10 mg Non-Formulary Medication (Roflumilast [Daliresp]) 500 mcg PO DAILY [facility] Omeprazole (Omeprazole 40 Mg Capsule.Dr) 40 mg PO BID@0630,1630 [facility] Last Admin: 07/30/22 06:19 Dose: 40 mg Ondansetron HCl (Ondansetron Hcl 4 Mg/2 Ml Vial) 4 mg IVPUSH Q8H PRN PRN Reason: Nausea and Vomiting Last Admin: 07/29/22 17:10 Dose: 4 mg Pharmacy Consult (Consult Rx Perform Med Rec) 1 each MISCELLANE ONCE PRN PRN Reason: Consult order Simethicone (Simethicone 80 Mg Tab.Chew) 80 mg PO QIDWMHS PRN PRN Reason: Abdominal Distention Sodium Chloride (0.9 % Sodium Chloride Flush 3 Ml Syringe) 3 ml IVFLUSH QSHIFT [facility] Last Admin: 07/30/22 08:28 Dose: Not Given Theophylline (Theophylline Anhydrous Er 400 Mg Tab.Er.24h) 400 mg PO Q12H [facility] Last Admin: 07/30/22 09:22 Dose: 400 mg Tiotropium [place] (Tiotropium [place] 18 Mcg Cap.W.Dev) 1 puff INHALE DAILY [facility] Last Admin: 07/30/22 09:23 Dose: 1 puff Home Medications Medication Instructions Recorded Confirmed Last Taken Type albuterol sulfate 90 mcg/actuation 2 puff inhalation Q4H PRN 12/30/19 07/29/22 07/28/22 23:10 History aerosol inhaler (ProAir HFA) Shortness Of Breath Or Wheezing loratadine 10 mg tablet (Claritin) 10 mg PO DAILY 12/30/19 07/29/22 04/07/22 History montelukast 10 mg tablet 10 mg PO BEDTIME 12/30/19 07/29/22 07/28/22 23:14 History diltiazem HCl 360 mg capsule,24 360 mg PO DAILY 11/16/20 07/29/22 04/07/22 H istory hr,extended release (Tiadylt ER) roflumilast 500 mcg tablet 500 mcg PO DAILY 11/16/20 07/29/22 07/28/22 23:15 History (Daliresp) rosuvastatin 5 mg tablet 5 mg PO BEDTIME 11/16/20 07/29/22 07/28/22 23:15 History insulin lispro 100 unit/mL See Protocol subcut TIDAC 12/14/20 07/29/22 07/28/22 23:16 History subcutaneous solution (Humalog U-100 Insulin) metformin 500 mg tablet,extended 1,000 mg PO BID 05/18/21 07/29/22 04/07/22 History release 24 hr ergocalciferol (vitamin D2) 1,250 1,250 mcg PO QWEEK 06/06/21 07/29/22 Unknown History mcg (50,000 unit) capsule methadone 10 mg/mL oral concentrate 50 mg PO DAILY 06/06/21 07/29/22 07/28/22 History lisinopril 40 mg tablet 40 mg PO DAILY 07/30/21 07/29/22 04/07/22 History hydralazine 25 mg tablet 25 mg PO TID 0807/29/22 07/28/22 23:12 History insulin lispro 100 unit/mL 4 unit subcut TIDAC 11/02/21 07/29/22 04/07/22 History subcutaneous solution omeprazole 40 mg capsule,delayed 40 mg PO DAILY@0630 11/02/21 07/29/22 07/28/22 23:14 History release clonazepam 1 mg tablet 1 mg PO BID PRN Anxiety 06/28/22 07/29/22 Unknown History ibuprofen 600 mg tablet 600 mg PO Q8H PRN Pain 06/28/22 07/29/22 Unknown History alendronate 70 mg tablet 70 mg PO QWEEK 07/29/22 07/29/22 Unknown History bupropion HCl 100 mg tablet 100 mg PO DAILY 07/29/22 07/29/22 Unknown History lamotrigine 150 mg tablet 150 mg PO BID 07/29/22 07/29/22 Unknown History lidocaine 5 % topical patch 1 patch topical DAILY 07/29/22 07/29/22 Unknown History prednisone 10 mg tablet 20 mg PO DAILY 07/29/22 07/29/22 Unknown History sodium chloride 7 % for 4 ml inhalation BID 07/29/22 07/29/22 Unknown History nebulization Physical Exam Vital Signs: Vital Signs: Last Vital Signs Temp 98.2 F 07/30/22 11:23 Pulse 97 07/30/22 12:09 Resp 20 07/30/22 12:09 BP 120/63 07/30/22 11:23 Pulse Ox 84 L 07/30/22 11:23 O2 Del Method Nasal Cannula 07/30/22 11:23 O2 Flow Rate 3 07/30/22 11:23 FiO2 30 07/30/22 03:45 Oxygen Flow Rate 2 07/28/22 16:28 BMI result Body Mass Index 38.4 Const: Other: on O2 by NC, appears SOB Resp: Other: appears SOB Cardio: Rhythm: regular rhythm GI: Palpation (GI): Soft to palpation, not firm, nontender and no guarding Results Labs 07/30/22 06:13 07/30/22 06:13 Labs: Abnormal lab results 07/29/22 07/29/22 07/30/22 Range/Units 15:48 19:15 06:13 WBC 3.6 L (4.8-10.8) X10*3/uL RBC 3.68 L (4.20-5.50) X10*6/uL Hgb 10.6 L (12.0-16.0) g/dl Hct 33.5 L (37.0-47.0) % MPV 9.2 L (9.4-12.3) fL VBG pH (7.32-7.43) VBG HCO3 (22-26) mmol/L Sodium (135-145) mmol/L Chloride (96-108) mmol/L Carbon Dioxide (22-29) mmol/L Anion Gap (12-20) BUN (9-16) mg/dL Creatinine (0.5-1.4) mg/dL POC Glucose 177 H (60-115) mg/dL Random Glucose (60-115) mg/dL Calcium (8.4-10.2) mg/dL Total Protein (6.5-8.0) g/dL Albumin (3.5-5.0) g/dL U Random Total Protein (<12) mg/dL Stool Salmonella PCR Detected A (Not Detect.) 07/30/22 07/30/22 07/30/22 Range/Units 06:13 06:21 07:01 WBC (4.8-10.8) X10*3/uL RBC (4.20-5.50) X10*6/uL Hgb (12.0-16.0) g/dl Hct (37.0-47.0) % MPV (9.4-12.3) fL VBG pH 7.22 L (7.32-7.43) VBG HCO3 20 L (22-26) mmol/L Sodium 133 L (135-145) mmol/L Chloride 94 L (96-108) mmol/L Carbon Dioxide 18 L (22-29) mmol/L Anion Gap 24 H (12-20) BUN 75 H (9-16) mg/dL Creatinine 5.52 H* (0.5-1.4) mg/dL POC Glucose 161 H (60-115) mg/dL Random Glucose 194 H (60-115) mg/dL Calcium 7.2 L (8.4-10.2) mg/dL Total Protein 5.5 L (6.5-8.0) g/dL Albumin 3.1 L (3.5-5.0) g/dL U Random Total Protein (<12) mg/dL Stool Salmonella PCR (Not Detect.) 07/30/22 07/30/22 Range/Units 10:17 10:57 WBC (4.8-10.8) X10*3/uL RBC (4.20-5.50) X10*6/uL Hgb (12.0-16.0) g/dl Hct (37.0-47.0) % MPV (9.4-12.3) fL VBG pH (7.32-7.43) VBG HCO3 (22-26) mmol/L Sodium (135-145) mmol/L Chloride (96-108) mmol/L Carbon Dioxide (22-29) mmol/L Anion Gap (12-20) BUN (9-16) mg/dL Creatinine (0.5-1.4) mg/dL POC Glucose 164 H (60-115) mg/dL Random Glucose (60-115) mg/dL Calcium (8.4-10.2) mg/dL Total Protein (6.5-8.0) g/dL Albumin (3.5-5.0) g/dL U Random Total Protein 155 H (<12) mg/dL Stool Salmonella PCR (Not Detect.) Short CBC 07/30/22 Range/Units 06:13 WBC 3.6 L (4.8-10.8) X10*3/uL Hgb 10.6 L (12.0-16.0) g/dl Hct 33.5 L (37.0-47.0) % Plt Count 224 (160-400) X10*3/uL BMP 07/30/22 06:13 Sodium 133 L Potassium 3.3 Chloride 94 L Carbon Dioxide 18 L BUN 75 H Creatinine 5.52 H* Calcium 7.2 L Liver Function 07/30/22 Range/Units 06:13 Total Bilirubin 0.1 (0.0-1.0) mg/dL Direct Bilirubin < 0.2 (0.0-0.5) mg/dL AST 22 (5-31) U/L ALT 19 (0-31) U/L Alkaline Phosphatase 62 (39-117) U/L Albumin 3.1 L (3.5-5.0) g/dL Urine 07/28/22 Range/Units 20:49 Urine Color Dark Yellow Urine Appearance Turbid Urine pH 5.0 (5.0-9.0) Ur Specific [place] 1.025 (1.005-1.025) Urine Protein 300 (3+) H (Neg-Trace) mg/dL Urine Glucose (UA) 100 H (Negative) mg/dL All other labs normal. Laboratory Results WBC 3.6 X10*3/uL (4.8-10.8) L 07/30/22 06:13 RBC 3.68 X10*6/uL (4.20-5.50) L 07/30/22 06:13 Hgb 10.6 g/dl (12.0-16.0) L 07/30/22 06:13 Hct 33.5 % (37.0-47.0) L 07/30/22 06:13 MCV 91.0 fL (80.0-98.0) 07/30/22 06:13 MCH 28.8 pg (27.0-33.0) 07/30/22 06:13 MCHC 31.6 g/dl (31.0-35.0) 07/30/22 06:13 RDW 13.8 % (11.0-16.0) 07/30/22 06:13 Plt Count 224 X10*3/uL (160-400) 07/30/22 06:13 MPV 9.2 fL (9.4-12.3) L 07/30/22 06:13 Immature Gran % (Auto) Cancelled 07/29/22 07:01 Neut % (Auto) Cancelled 07/29/22 07:01 Lymph % (Auto) Cancelled 07/29/22 07:01 [place] % (Auto) Cancelled 07/29/22 07:01 Eos % (Auto) Cancelled 07/29/22 07:01 Baso % (Auto) Cancelled 07/29/22 07:01 Lymph # (Auto) Cancelled 07/29/22 07:01 [place] # (Auto) Cancelled 07/29/22 07:01 Eos # (Auto) Cancelled 07/29/22 07:01 Baso # (Auto) Cancelled 07/29/22 07:01 Abs Immat Gran (auto) Cancelled 07/29/22 07:01 Absolute Neuts (auto) Cancelled 07/29/22 07:01 Absolute Nucleated RBC 0.000 X10*3/uL (0.0-0.012) 07/30/22 06:13 Nucleated RBC % (auto) 0.0 /100WBC (0.0-0.2) 07/30/22 06:13 Neutrophils % (Manual) 49 % (45-73) 07/29/22 07:01 Band Neutrophils % 45 % (3-5) H 07/29/22 07:01 Lymphocytes % (Manual) 1 % (20-40) L 07/29/22 07:01 Monocytes % (Manual) 1 % (2-11) L 07/29/22 07:01 Metamyelocytes % 2 % 07/29/22 07:01 Myelocytes % 1 % 07/29/22 07:01 Promyelocytes % 1 % 07/29/22 07:01 Abs Neuts (Manual) 7.1 X10*3/uL (2.0-8.3) 07/29/22 07:01 Lymphocytes # (Manual) 0.1 X10*3/uL (1.2-4.9) L 07/29/22 07:01 Monocytes # (Manual) 0.1 X10*3/uL (0.1-1.2) 07/29/22 07:01 Metamyelocytes # 0.2 X10*3/uL 07/29/22 07:01 Myelocytes # 0.1 X10*/uL 07/29/22 07:01 Promyelocytes # 0.1 X10*3/uL 07/29/22 07:01 Toxic Granulation PRESENT 07/29/22 07:01 Toxic Vacuolation PRESENT 07/29/22 07:01 Dohle Bodies PRESENT 07/29/22 07:01 Platelet Estimate NORMAL (NORMAL) 07/29/22 07:01 Plt Morphology Comment NORMAL 07/29/22 07:01 RBC Morphology NORMAL 07/29/22 07:01 VBG pH 7.22 (7.32-7.43) L 07/30/22 06:21 VBG pCO2 48 mmHg 07/30/22 06:21 VBG pO2 63 mmHg 07/30/22 06:21 VBG HCO3 20 mmol/L (22-26) L 07/30/22 06:21 VBG O2 Saturation 89.0 % 07/30/22 06:21 VBG Base Excess -7.4 mmol/L 07/30/22 06:21 Sodium 133 mmol/L (135-145) L 07/30/22 06:13 Potassium 3.3 mmol/L (3.3-5.1) 07/30/22 06:13 Chloride 94 mmol/L (96-108) L 07/30/22 06:13 Carbon Dioxide 18 mmol/L (22-29) L 07/30/22 06:13 Anion Gap 24 (12-20) H 07/30/22 06:13 BUN 75 mg/dL (9-16) H 07/30/22 06:13 Creatinine 5.52 mg/dL (0.5-1.4) H* 07/30/22 06:13 Estim Creat Clear Calc 11.3 07/30/22 06:13 Estimated GFR 8 07/30/22 06:13 POC Glucose 99 mg/dL (60-115) 07/30/22 17:13 Random Glucose 194 mg/dL (60-115) H 07/30/22 06:13 Lactic Acid 2.3 mmol/L (0.5-2.0) H* 07/28/22 17:26 Lactic Acid F/U @ 2Hr 2.1 mmol/L (0.5-2.0) H* 07/28/22 19:38 Lactic Acid F/U @ 4Hr 1.5 mmol/L (0.5-2.0) 07/28/22 23:00 Calcium 7.2 mg/dL (8.4-10.2) L 07/30/22 06:13 Magnesium 2.4 mg/dL (1.6-2.6) 07/28/22 16:29 Total Bilirubin 0.1 mg/dL (0.0-1.0) 07/30/22 06:13 Direct Bilirubin < 0.2 mg/dL (0.0-0.5) 07/30/22 06:13 AST 22 U/L (5-31) 07/30/22 06:13 ALT 19 U/L (0-31) 07/30/22 06:13 Alkaline Phosphatase 62 U/L (39-117) 07/30/22 06:13 Troponin I High Sens 24.2 ng/L (<3.5-17.0) H D 07/28/22 23:00 Total Protein 5.5 g/dL (6.5-8.0) L 07/30/22 06:13 Albumin 3.1 g/dL (3.5-5.0) L 07/30/22 06:13 Lipase 6 U/L (8-78) L 07/28/22 16:29 Urine Color Dark Yellow 07/28/22 20:49 Urine Appearance Turbid 07/28/22 20:49 Urine pH 5.0 (5.0-9.0) 07/28/22 20:49 Ur Specific [place] 1.025 (1.005-1.025) 07/28/22 20:49 Urine Protein 300 (3+) mg/dL (Neg-Trace) H 07/28/22 20:49 Urine Glucose (UA) 100 mg/dL (Negative) H 07/28/22 20:49 Urine Ketones Negative mg/dL (Negative) 07/28/22 20:49 Urine Blood Small (1+) (Negative) H 07/28/22 20:49 Urine Nitrite Negative (Negative) 07/28/22 20:49 Ur Leukocyte Esterase Negative (Negative) 07/28/22 20:49 Urine RBC 11-20 /HPF (0-2) H 07/28/22 20:49 Urine WBC 6-10 /HPF (0-5) H 07/28/22 20:49 Ur Squamous Epith Cells >20 /HPF (0-2) 07/28/22 20:49 Urine Bacteria 1+ (None Seen) 07/28/22 20:49 Hyaline Casts 0-2 /LPF (0-2) 07/28/22 20:49 U Random Total Protein 155 mg/dL (<12) H 07/30/22 10:17 Ur Random Sodium 42.0 mmol/L 07/30/22 10:17 Urine Creatinine 116.29 mg/dL 07/30/22 10:17 Stl C. cayetanensis PCR Not Detected (Not Detect.) 07/29/22 15:48 Stool Rotavirus A PCR Not Detected (Not Detect.) 07/29/22 15:48 Stl Adenov F 40/41 PCR Not Detected (Not Detect.) 07/29/22 15:48 Stool Astrovirus (PCR) Not Detected (Not Detect.) 07/29/22 15:48 Stool Campylobacter PCR Not Detected (Not Detect.) 07/29/22 15:48 Stool Cryptosporidium PCR Not Detected (Not Detect.) 07/29/22 15:48 Stl Sh Tox Pr E STEC PCR Not Detected (Not Detect.) 07/29/22 15:48 Stool E coli O157 PCR Not applicable (Not Detect.) 07/29/22 15:48 Stl Enterotoxigenic E PCR Not Detected (Not Detect.) 07/29/22 15:48 Stool EPEC (PCR) Not Detected (Not Detect.) 07/29/22 15:48 Stool EAEC (PCR) Not Detected (Not Detect.) 07/29/22 15:48 Stl E. histolytica PCR Not Detected (Not Detect.) 07/29/22 15:48 Stool Giardia Lamblia PCR Not Detected (Not Detect.) 07/29/22 15:48 Stl P. shigelloides PCR Not Detected (Not Detect.) 07/29/22 15:48 Stool Salmonella PCR Detected (Not Detect.) A 07/29/22 15:48 Stool Sapovirus (PCR) Not Detected (Not Detect.) 07/29/22 15:48 Stl Shigella/EIEC PCR Not Detected (Not Detect.) 07/29/22 15:48 St Y.enterocolitica PCR Not Detected (Not Detect.) 07/29/22 15:48 Stool Vibrio (PCR) Not Detected (Not Detect.) 07/29/22 15:48 Stl Vibrio cholerae PCR Not Detected (Not Detect.) 07/29/22 15:48 Stl Norovirus GI/GII PCR Not Detected (Not Detect.) 07/29/22 15:48 C. difficile Tox B Gene NEGATIVE (Negative) 07/29/22 15:48 Impressions Chest X-Ray 07/28/22 18:17 IMPRESSION: No acute findings. Abdomen/Pelvis CT 07/28/22 18:19 IMPRESSION: * No acute findings within the abdomen or pelvis to explain the patient's symptomatology. * Chronic findings as above. Abdomen Ultrasound 07/29/22 12:40 IMPRESSION: Distended gallbladder. No gallstone seen. There is sludge in the gallbladder. If there is clinical concern for acalculous cholecystitis, HIDA scan would be recommended. Limited visualization of the pancreas and aorta. Assessment and Plan (1) Gastroenteritis, acute: Status: Acute She as admitted for nausea, vomitting and diarrhea. She was volume depleted at that time as well. She met sepsis criteria and in view of gm neg bacteremia, a biliary source of infection is being considered. Her CT scan did not show intraabdominal pathology. Her US showed a distended GB without stones or wall thickening. She had a HIDA scan, and the GB was visualized, showing a patent cystic duct. This has not been officially read. Cilincal picture does not show cholecystitis.. Her GI tract appears unremarkable on CT scan. Her abdominal exam is benign, and she says she is not tender at this time. We will follow along while she is in the hospital. Time Spent With Patient Time: Total time managing care of this patient today ____ minutes. Procedures Date of Service Date of Service: 08/01/22
[2022-07-30 19:44] LABS: Glucose, Whole Blood 119 mg/dL (60-115)
[2022-07-30] MEDS: Insulin Glargine,Hum.rec.anlog 100 UNIT/ML 10 ML VIAL 35 UNIT SUBCUT (21:40)
[2022-07-30] MEDS: Montelukast Sodium 10 MG TABLET PO (21:40)
[2022-07-31] VITALS (13 sets, daily range): BP systolic 112–167; BP diastolic 52–73; PULSE 96–124; RESP 16–22; TEMP 36.5–37.6; O2SAT 92–110; BMI 39.8
[2022-07-31] MEDS: Heparin Sodium,Porcine 5,000 UNIT/ML VIAL 5000 UNIT SUBCUT ×2 (00:02→12:37)
[2022-07-31] MEDS: metroNIDAZOLE/NS 500 MG/100 ML PIGGYBACK 100 MG IV ×3 (00:03→16:24)
[2022-07-31] MEDS: 0.9 % Sodium Chloride Flush 3 ML SYRINGE IVFLUSH ×2 (00:03→16:25)
[2022-07-31] MEDS: 0.9 % Sodium Chloride 1,000 ML 150 ML IVCONT ×3 (03:54→19:33)
[2022-07-31] MEDS: methylPREDNISolone Sod Succ 40 MG/ML VIAL IVPUSH (06:12)
[2022-07-31] MEDS: Omeprazole 40 MG CAPSULE.DR PO ×2 (06:12→16:24)
[2022-07-31 07:00] LABS: Venous Blood Gas Refer to POC result
[2022-07-31 07:00] LABS: Hematocrit 33.5 % (37.0-47.0); Hemoglobin 10.8 g/dl (12.0-16.0); Mean Corpuscular HGB Conc 32.2 g/dl (31.0-35.0); Mean Corpuscular Volume 90.1 fL (80.0-98.0); Mean Platelet Volume 8.9 fL (9.4-12.3); NRBC Pct Auto 0.6 /100WBC (0.0-0.2); Platelet Count 211 X10*3/uL (160-400); Red Blood Count 3.72 X10*6/uL (4.20-5.50); Red Cell Distribution Width 13.9 % (11.0-16.0); White Blood Count 4.7 X10*3/uL (4.8-10.8)
[2022-07-31 07:02] LABS: VBG Base Excess -6.1 mmol/L; VBG HCO3 19 mmol/L (22-26); VBG pCO2 39 mmHg; VBG pO2 131 mmHg
[2022-07-31 07:39] LABS: Glucose, Whole Blood 114 mg/dL (60-115)
[2022-07-31 07:58] LABS: Fibrinogen > 700 MG/DL (259-690)
[2022-07-31 08:02] LABS: Anion Gap 19 (12-20); Blood Urea Nitrogen 69 mg/dL (9-16); Calcium 7.3 mg/dL (8.4-10.2); Carbon Dioxide 19 mmol/L (22-29); Chloride 107 mmol/L (96-108); Creatinine Clr Calc Pharmacy 16.2; Estimated Glomerular Filt Rate 12; Glucose Random 95 mg/dL (60-115); Potassium 3.4 mmol/L (3.3-5.1); Sodium 142 mmol/L (135-145)
[2022-07-31] MEDS: Albuterol/Iprat 2.5/0.5MG 3 ML AMPUL.NEB INHALE ×4 (08:03→19:17)
[2022-07-31 08:04] LABS: C Reactive Protein 14.15 mg/dL (< or = 0.50); Triglycerides 306 mg/dL
--- NOTE | 2022-07-31 08:17 | PM.PNGS ---
Subjective Subjective Date of Service: 08/01/22 Interval history: Denies abdominal pain Complaints of body aches Physical Exam Vital Signs: Vital Signs: Last Vital Signs Temp 97.7 F 07/31/22 07:42 Pulse 124 H 07/31/22 08:09 Resp 16 07/31/22 08:09 BP 167/70 H 07/31/22 07:42 Pulse Ox 94 07/31/22 07:42 O2 Del Method BiPAP 07/31/22 07:42 O2 Flow Rate 2 07/30/22 17:50 FiO2 30 07/30/22 22:11 Oxygen Flow Rate 2 07/28/22 16:28 BMI result Body Mass Index 39.8 Const: Other: Appears short of breath, with CPAP Resp: Other: Using CPAP, with chronic shortness of breath Cardio: Rhythm: regular rhythm GI: Other: Obese Palpation (GI): Soft to palpation, not firm, nontender and no guarding Objective Data Active Medications Acetaminophen (Acetaminophen 325 Mg Tablet) 650 mg PO Q6H PRN PRN Reason: Pain, Mild (Pain Scale 1-3) Last Admin: 07/30/22 06:20 Dose: 650 mg Documented By: GANESH Al Hydroxide/Mg Hydroxide (Magnesium Hydrox/Alum Hydrox 30 Ml Oral.Susp) 30 ml PO Q4H PRN PRN Reason: heartburn Last Admin: 07/29/22 17:55 Dose: 30 ml Documented By: NAYE Albuterol/Ipratropium (Albuterol/Iprat 2.5/0.5mg 3 Ml Ampul.Neb) 3 ml INHALE RQ4H PRN PRN Reason: Shortness of Breath/Wheezing Albuterol/Ipratropium (Albuterol/Iprat 2.5/0.5mg 3 Ml Ampul.Neb) 3 ml INHALE RQ4H WHILE AWAKE [facility] Last Admin: 07/31/22 08:03 Dose: 3 ml Documented By: MITESH Atorvastatin Calcium (Atorvastatin Calcium 20 Mg Tablet) 20 mg PO DAILY [facility] Last Admin: 07/30/22 09:22 Dose: 20 mg Documented By: CHANI Bupropion HCl (Bupropion Hcl 100 Mg Tablet) 100 mg PO DAILY [facility] Last Admin: 07/30/22 09:22 Dose: 100 mg Documented By: CHANI Clonazepam (Clonazepam 1 Mg Tablet) 1 mg PO BID PRN PRN Reason: Anxiety Last Admin: 07/29/22 22:17 Dose: 1 mg Documented By: NAYE Diltiazem HCl (Diltiazem Hcl Cd 180 Mg Cap.Er.24h) 360 mg PO DAILY [facility]; Protocol Last Admin: 07/29/22 09:56 Dose: 360 mg Documented By: LOYD Ergocalciferol (Ergocalciferol (Vitamin D2) 1,250 Mcg Capsule) 1,250 mcg PO Q7D [facility] Last Admin: 07/29/22 12:09 Dose: 1,250 mcg Documented By: LOYD Gabapentin (Gabapentin 300 Mg Capsule) 300 mg PO BID [facility] Last Admin: 07/30/22 21:40 Dose: 300 mg Documented By: NAYE Glucose (Glucose Gel 15 Gm Gel..Gram.) 15 gm PO Q15M PRN; Protocol PRN Reason: per Hypoglycemia Standing Ord. Glucose (Glucose Gel 15 Gm Gel..Gram.) 15 gm PO Q15M PRN; Protocol PRN Reason: per Hypoglycemia Standing Ord. Heparin Sodium (Porcine) (Heparin Sodium,Porcine 5,000 Unit/Ml Vial) 5,000 unit SUBCUT Q12H [facility] Last Admin: 07/31/22 00:02 Dose: 5,000 unit Documented By: CARIDAD Hydralazine HCl (Hydralazine Hcl 25 Mg Tablet) 25 mg PO TID [facility]; Protocol Last Admin: 07/29/22 09:56 Dose: 25 mg Documented By: LOYD Dextrose (D10) 250 mls @ 750 mls/hr IV Q15M PRN; Protocol PRN Reason: per Hypoglycemia Standing Ord. Dextrose (D10) 250 mls @ 750 mls/hr IV Q15M PRN; Protocol PRN Reason: per Hypoglycemia Standing Ord. Ceftriaxone Sodium 2 gm/ (Sodium Chloride) 50 mls @ 100 mls/hr IV Q24H [facility] Last Infusion: 07/30/22 09:52 Dose: 0 mls/hr Documented By: CHANI Sodium Chloride (Ns) 1,000 mls @ 150 mls/hr IVCONT .Q6H40M [facility] Last Admin: 07/31/22 03:54 Dose: 150 mls/hr Documented By: HO.ANTOIC Metronidazole (Flagyl) 500 mg in 100 mls @ 100 mls/hr IV Q8H [facility] Last Infusion: 07/31/22 01:10 Dose: 0 mls/hr Documented By: CARIDAD Insulin Glargine (Insulin Glargine,Hum.Rec.Anlog 100 Unit/Ml 10 Ml Vial) 35 unit SUBCUT BEDTIME [facility] Last Admin: 07/30/22 21:40 Dose: 35 unit Documented By: NAYE Insulin Human Lispro (Insulin Lispro 100 Unit/Ml 3 Ml Vial) 0 unit SUBCUT QIDACHS [facility]; Protocol Last Admin: 07/31/22 07:58 Dose: Not Given Documented By: CHANI Non-Admin Reason: No Insulin Coverage Lamotrigine (Lamotrigine 25 Mg Tablet) 150 mg PO BID [facility] Last Admin: 07/30/22 21:40 Dose: 150 mg Documented By: NAYE Lidocaine (Lidocaine 4 % Patch Adh..Patch) 1 patch TRANSDERMA DAILY [facility] Last Admin: 07/30/22 09:23 Dose: 1 patch Documented By: CHANI Lisinopril (Lisinopril 40 Mg Tablet) 40 mg PO DAILY [facility]; Protocol Last Admin: 07/29/22 09:56 Dose: 40 mg Documented By: LOYD Loperamide HCl (Loperamide Hcl 2 Mg Capsule) 4 mg PO Q4H PRN PRN Reason: diarrhea Last Admin: 07/30/22 21:40 Dose: 4 mg Documented By: NAYE Loratadine (Loratadine 10 Mg Tablet) 10 mg PO DAILY [facility] Last Admin: 07/30/22 09:22 Dose: 10 mg Documented By: CHANI Methadone HCl (Methadone Hcl 20 Mg/2 Ml Oral.Conc) 50 mg PO DAILY [facility] Last Admin: 07/30/22 09:22 Dose: 50 mg Documented By: CHANI Methylprednisolone Sodium Succinate (Methylprednisolone Sod Succ 40 Mg/Ml Vial) 40 mg IVPUSH Q12H [facility] Last Admin: 07/31/22 06:12 Dose: 40 mg Documented By: CARIDAD Montelukast Sodium (Montelukast Sodium 10 Mg Tablet) 10 mg PO BEDTIME [facility] Last Admin: 07/30/22 21:40 Dose: 10 mg Documented By: NAYE Non-Formulary Medication (Roflumilast [Daliresp]) 500 mcg PO DAILY [facility] Omeprazole (Omeprazole 40 Mg Capsule.Dr) 40 mg PO BID@0630,1630 [facility] Last Admin: 07/31/22 06:12 Dose: 40 mg Documented By: CARIDAD Ondansetron HCl (Ondansetron Hcl 4 Mg/2 Ml Vial) 4 mg IVPUSH Q8H PRN PRN Reason: Nausea and Vomiting Last Admin: 07/29/22 17:10 Dose: 4 mg Documented By: NAYE Pharmacy Consult (Consult Rx Perform Med Rec) 1 each MISCELLANE ONCE PRN PRN Reason: Consult order Simethicone (Simethicone 80 Mg Tab.Chew) 80 mg PO QIDWMHS PRN PRN Reason: Abdominal Distention Sodium Chloride (0.9 % Sodium Chloride Flush 3 Ml Syringe) 3 ml IVFLUSH QSHIFT [facility] Last Admin: 07/31/22 00:03 Dose: 3 ml Documented By: CARIDAD Theophylline (Theophylline Anhydrous Er 400 Mg Tab.Er.24h) 400 mg PO Q12H [facility] Last Admin: 07/30/22 21:47 Dose: 400 mg Documented By: NAYE Tiotropium [place] (Tiotropium [place] 18 Mcg Cap.W.Dev) 1 puff INHALE DAILY [facility] Last Admin: 07/31/22 08:03 Dose: 1 puff Documented By: MITESH Labs 07/31/22 06:47 07/31/22 06:47 Labs: Laboratory Results - last 24 hr 07/29/22 07/30/22 07/30/22 15:48 07:01 10:17 MCV MCH MCHC RDW Plt Count MPV Absolute Nucleated RBC Nucleated RBC % (auto) Fibrinogen VBG pH VBG pCO2 VBG pO2 VBG HCO3 VBG O2 Saturation VBG Base Excess Anion Gap Estim Creat Clear Calc Estimated GFR POC Glucose 161 H Random Glucose Calcium C-Reactive Protein Triglycerides U Random Total Protein 155 H Ur Random Sodium 42.0 Urine Creatinine 116.29 Stl C. cayetanensis PCR Not Detected Stool Rotavirus A PCR Not Detected Stl Adenov F 40/41 PCR Not Detected Stool Astrovirus (PCR) Not Detected Stool Campylobacter PCR Not Detected Stool Cryptosporidium PCR Not Detected Stl Sh Tox Pr E STEC PCR Not Detected Stool E coli O157 PCR Not applicable Stl Enterotoxigenic E PCR Not Detected Stool EPEC (PCR) Not Detected Stool EAEC (PCR) Not Detected Stl E. histolytica PCR Not Detected Stool Giardia Lamblia PCR Not Detected Stl P. shigelloides PCR Not Detected Stool Salmonella PCR Detected A Stool Sapovirus (PCR) Not Detected Stl Shigella/EIEC PCR Not Detected St Y.enterocolitica PCR Not Detected Stool Vibrio (PCR) Not Detected Stl Vibrio cholerae PCR Not Detected Stl Norovirus GI/GII PCR Not Detected 07/30/22 07/30/22 07/30/22 10:57 17:13 19:29 MCV MCH MCHC RDW Plt Count MPV Absolute Nucleated RBC Nucleated RBC % (auto) Fibrinogen VBG pH VBG pCO2 VBG pO2 VBG HCO3 VBG O2 Saturation VBG Base Excess Anion Gap Estim Creat Clear Calc Estimated GFR POC Glucose 164 H 99 119 H Random Glucose Calcium C-Reactive Protein Triglycerides U Random Total Protein Ur Random Sodium Urine Creatinine Stl C. cayetanensis PCR Stool Rotavirus A PCR Stl Adenov F 40/ PCR Stool Astrovirus (PCR) Stool Campylobacter PCR Stool Cryptosporidium PCR Stl Sh Tox Pr E STEC PCR Stool E coli O157 PCR Stl Enterotoxigenic E PCR Stool EPEC (PCR) Stool EAEC (PCR) Stl E. histolytica PCR Stool Giardia Lamblia PCR Stl P. shigelloides PCR Stool Salmonella PCR Stool Sapovirus (PCR) Stl Shigella/EIEC PCR St Y.enterocolitica PCR Stool Vibrio (PCR) Stl Vibrio cholerae PCR Stl Norovirus GI/GII PCR 07/31/22 07/31/22 07/31/22 06:47 06:47 06:47 MCV 90.1 MCH 29.0 MCHC 32.2 RDW 13.9 Plt Count 211 MPV 8.9 L Absolute Nucleated RBC 0.030 H Nucleated RBC % (auto) 0.6 H Fibrinogen > 700 H VBG pH VBG pCO2 VBG pO2 VBG HCO3 VBG O2 Saturation VBG Base Excess Anion Gap Estim Creat Clear Calc Estimated GFR POC Glucose Random Glucose Calcium C-Reactive Protein 14.15 H Triglycerides 306 U Random Total Protein Ur Random Sodium Urine Creatinine Stl C. cayetanensis PCR Stool Rotavirus A PCR Stl Adenov F 40/ PCR Stool Astrovirus (PCR) Stool Campylobacter PCR Stool Cryptosporidium PCR Stl Sh Tox Pr E STEC PCR Stool E coli O157 PCR Stl Enterotoxigenic E PCR Stool EPEC (PCR) Stool EAEC (PCR) Stl E. histolytica PCR Stool Giardia Lamblia PCR Stl P. shigelloides PCR Stool Salmonella PCR Stool Sapovirus (PCR) Stl Shigella/EIEC PCR St Y.enterocolitica PCR Stool Vibrio (PCR) Stl Vibrio cholerae PCR Stl Norovirus GI/GII PCR 07/31/22 07/31/22 07/31/22 06:47 06:55 07:35 MCV MCH MCHC RDW Plt Count MPV Absolute Nucleated RBC Nucleated RBC % (auto) Fibrinogen VBG pH 7.30 L VBG pCO2 39 VBG pO2 131 VBG HCO3 19 L VBG O2 Saturation 99.0 VBG Base Excess -6.1 Anion Gap 19 Estim Creat Clear Calc 16.2 Estimated GFR 12 POC Glucose 114 Random Glucose 95 Calcium 7.3 L C-Reactive Protein Triglycerides U Random Total Protein Ur Random Sodium Urine Creatinine Stl C. cayetanensis PCR Stool Rotavirus A PCR Stl Adenov F 40/41 PCR Stool Astrovirus (PCR) Stool Campylobacter PCR Stool Cryptosporidium PCR Stl Sh Tox Pr E STEC PCR Stool E coli O157 PCR Stl Enterotoxigenic E PCR Stool EPEC (PCR) Stool EAEC (PCR) Stl E. histolytica PCR Stool Giardia Lamblia PCR Stl P. shigelloides PCR Stool Salmonella PCR Stool Sapovirus (PCR) Stl Shigella/EIEC PCR St Y.enterocolitica PCR Stool Vibrio (PCR) Stl Vibrio cholerae PCR Stl Norovirus GI/GII PCR Microbiology Microbiology Results: Microbiology 07/28/22 21:47 Urine Culture - Final Urine clean catch - Urine hernandez top No growth. Procedures Date of Service Date of Service: 08/01/22 Progress Note: A&P Assessment and plan (1) Bacteremia: Status: Acute Assessment and Plan: Does not appear to be from GI or biliary source based on imaging studies CT scan of the GI tract appears unremarkable HIDA scan she shows visualization the gallbladder, with good flow of bile into the small-bowel Abdomen soft and benign Patient denies tenderness Care as per hospitalist service Discussed with hospitalist Time Spent With Patient Time: Total time managing care of this patient today ____ minutes. Quality Stroke Does the patient have a stroke diagnosis?: No VTE Prior VTE?: No VTE Risk Level:: Medical - moderate - high VTE Device Contraindication: Treatment Not Indicated VTE Drug Contraindication: N/A - Med Ordered
[2022-07-31 08:21] LABS: Ferritin 296 ng/mL (10-250)
[2022-07-31 08:27] LABS: HBc Num1 1.95 S/CO (0.00-0.79); HIV AB/AG Nonreactive (Nonreactive); HIV Num 1 0.06 S/CO (0.00-0.99); Hepatitis B Surface Antigen Negative (Negative); ~Hepatitis B Surface Antibody REACTIVE (Nonreactive)
[2022-07-31] MEDS: methADONE HCl 20 MG/2 ML ORAL.CONC 50 MG PO (09:37)
[2022-07-31] MEDS: cefTRIAXone sodium 2 GM in 0.9 % Sodium Chloride 50 ML IV (09:39)
[2022-07-31] MEDS: lamoTRIgine 25 MG TABLET 150 MG PO ×2 (09:41→20:58)
[2022-07-31] MEDS: buPROPion HCL 100 MG TABLET PO (09:41)
[2022-07-31] MEDS: Theophylline Anhydrous ER 400 MG TAB.ER.24H PO ×2 (09:41→20:58)
[2022-07-31] MEDS: Loratadine 10 MG TABLET PO (09:41)
[2022-07-31] MEDS: Gabapentin 300 MG CAPSULE PO ×2 (09:41→20:58)
[2022-07-31] MEDS: Atorvastatin Calcium 20 MG TABLET PO (09:42)
[2022-07-31] MEDS: Lidocaine 4 % Patch ADH..PATCH 1 PATCH TRANSDERMA (09:44)
[2022-07-31 09:46] LABS: ~Hepatitis C Antibody Reactive (Nonreactive)
--- NOTE | 2022-07-31 10:11 | P.PNNP_ITS ---
Subjective Subjective Date of Service: 08/01/22 Interval history: Events noted Non oliguric Breathing essentially the same Physical Exam 2 Vital Signs: Vital Signs: Last Vital Signs Temp 97.7 F 07/31/22 07:42 Pulse 124 H 07/31/22 08:09 Resp 16 07/31/22 08:09 BP 167/70 H 07/31/22 07:42 Pulse Ox 94 07/31/22 07:42 O2 Del Method BiPAP 07/31/22 07:42 O2 Flow Rate 2 07/30/22 17:50 FiO2 30 07/30/22 22:11 Oxygen Flow Rate 2 07/28/22 16:28 BMI result Body Mass Index 39.8 Const: General: cooperative Cardio: Rate: regular rate Rhythm: regular rhythm GI: Palpation (GI): Soft to palpation Auscultation: normal bowel sounds Skin: General skin exam: no rashes or lesions noted Extrem: General: Yes normal to inspection and Yes no pedal edema Objective Data Labs 07/31/22 06:47 07/31/22 06:47 Labs: Laboratory Results - last 24 hr 07/29/22 07/30/22 07/30/22 15:48 10:17 10:57 WBC RBC Hgb Hct MCV MCH MCHC RDW Plt Count MPV Absolute Nucleated RBC Nucleated RBC % (auto) Fibrinogen VBG pH VBG pCO2 VBG pO2 VBG HCO3 VBG O2 Saturation VBG Base Excess Sodium Potassium Chloride Carbon Dioxide Anion Gap BUN Creatinine Estim Creat Clear Calc Estimated GFR POC Glucose 164 H Random Glucose Calcium Ferritin C-Reactive Protein Triglycerides U Random Total Protein 155 H Ur Random Sodium 42.0 Urine Creatinine 116.29 Stl C. cayetanensis PCR Not Detected Stool Rotavirus A PCR Not Detected Stl Adenov F 40/41 PCR Not Detected Stool Astrovirus (PCR) Not Detected Stool Campylobacter PCR Not Detected Stool Cryptosporidium PCR Not Detected Stl Sh Tox Pr E STEC PCR Not Detected Stool E coli O157 PCR Not applicable Stl Enterotoxigenic E PCR Not Detected Stool EPEC (PCR) Not Detected Stool EAEC (PCR) Not Detected Stl E. histolytica PCR Not Detected Stool Giardia Lamblia PCR Not Detected Stl P. shigelloides PCR Not Detected Stool Salmonella PCR Detected A Stool Sapovirus (PCR) Not Detected Stl Shigella/EIEC PCR Not Detected St Y.enterocolitica PCR Not Detected Stool Vibrio (PCR) Not Detected Stl Vibrio cholerae PCR Not Detected Stl Norovirus GI/GII PCR Not Detected Hep Bs Antigen Hep Bs Antibody HIV 1&2 Ab/P24 Ag 4thGn 07/30/22 07/30/22 07/31/22 17:13 19:29 06:47 WBC RBC Hgb Hct MCV MCH MCHC RDW Plt Count MPV Absolute Nucleated RBC Nucleated RBC % (auto) Fibrinogen > 700 H VBG pH VBG pCO2 VBG pO2 VBG HCO3 VBG O2 Saturation VBG Base Excess Sodium Potassium Chloride Carbon Dioxide Anion Gap BUN Creatinine Estim Creat Clear Calc Estimated GFR POC Glucose 99 119 H Random Glucose Calcium Ferritin C-Reactive Protein Triglycerides U Random Total Protein Ur Random Sodium Urine Creatinine Stl C. cayetanensis PCR Stool Rotavirus A PCR Stl Adenov F 40/ PCR Stool Astrovirus (PCR) Stool Campylobacter PCR Stool Cryptosporidium PCR Stl Sh Tox Pr E STEC PCR Stool E coli O157 PCR Stl Enterotoxigenic E PCR Stool EPEC (PCR) Stool EAEC (PCR) Stl E. histolytica PCR Stool Giardia Lamblia PCR Stl P. shigelloides PCR Stool Salmonella PCR Stool Sapovirus (PCR) Stl Shigella/EIEC PCR St Y.enterocolitica PCR Stool Vibrio (PCR) Stl Vibrio cholerae PCR Stl Norovirus GI/GII PCR Hep Bs Antigen Hep Bs Antibody HIV 1&2 Ab/P24 Ag 4thGn 07/31/22 07/31/22 07/31/22 06:47 06:47 06:47 WBC 4.7 L RBC 3.72 L Hgb 10.8 L Hct 33.5 L MCV 90.1 MCH 29.0 MCHC 32.2 RDW 13.9 Plt Count 211 MPV 8.9 L Absolute Nucleated RBC 0.030 H Nucleated RBC % (auto) 0.6 H Fibrinogen VBG pH VBG pCO2 VBG pO2 VBG HCO3 VBG O2 Saturation VBG Base Excess Sodium Potassium Chloride Carbon Dioxide Anion Gap BUN Creatinine Estim Creat Clear Calc Estimated GFR POC Glucose Random Glucose Calcium Ferritin 296 H C-Reactive Protein 14.15 H Triglycerides 306 U Random Total Protein Ur Random Sodium Urine Creatinine Stl C. cayetanensis PCR Stool Rotavirus A PCR Stl Adenov F 40/41 PCR Stool Astrovirus (PCR) Stool Campylobacter PCR Stool Cryptosporidium PCR Stl Sh Tox Pr E STEC PCR Stool E coli O157 PCR Stl Enterotoxigenic E PCR Stool EPEC (PCR) Stool EAEC (PCR) Stl E. histolytica PCR Stool Giardia Lamblia PCR Stl P. shigelloides PCR Stool Salmonella PCR Stool Sapovirus (PCR) Stl Shigella/EIEC PCR St Y.enterocolitica PCR Stool Vibrio (PCR) Stl Vibrio cholerae PCR Stl Norovirus GI/GII PCR Hep Bs Antigen Negative Hep Bs Antibody REACTIVE HIV 1&2 Ab/P24 Ag 4thGn Nonreactive 07/31/22 07/31/22 07/31/22 06:47 06:55 07:35 WBC RBC Hgb Hct MCV MCH MCHC RDW Plt Count MPV Absolute Nucleated RBC Nucleated RBC % (auto) Fibrinogen VBG pH 7.30 L VBG pCO2 39 VBG pO2 131 VBG HCO3 19 L VBG O2 Saturation 99.0 VBG Base Excess -6.1 Sodium 142 Potassium 3.4 Chloride 107 Carbon Dioxide 19 L Anion Gap 19 BUN 69 H Creatinine 3.93 H Estim Creat Clear Calc 16.2 Estimated GFR 12 POC Glucose 114 Random Glucose 95 Calcium 7.3 L Ferritin C-Reactive Protein Triglycerides U Random Total Protein Ur Random Sodium Urine Creatinine Stl C. cayetanensis PCR Stool Rotavirus A PCR Stl Adenov F 40/41 PCR Stool Astrovirus (PCR) Stool Campylobacter PCR Stool Cryptosporidium PCR Stl Sh Tox Pr E STEC PCR Stool E coli O157 PCR Stl Enterotoxigenic E PCR Stool EPEC (PCR) Stool EAEC (PCR) Stl E. histolytica PCR Stool Giardia Lamblia PCR Stl P. shigelloides PCR Stool Salmonella PCR Stool Sapovirus (PCR) Stl Shigella/EIEC PCR St Y.enterocolitica PCR Stool Vibrio (PCR) Stl Vibrio cholerae PCR Stl Norovirus GI/GII PCR Hep Bs Antigen Hep Bs Antibody HIV 1&2 Ab/P24 Ag 4thGn Microbiology Microbiology Results: Microbiology 07/28/22 21:47 Urine clean catch - Urine hernandez top Urine Culture - Final No growth. 07/28/22 17:26 Blood - Venous Blood Culture - Preliminary Prelim: GNR Gram Stain only 07/28/22 17:26 Blood - Venous Blood Culture - Preliminary Prelim: GNR Gram Stain only Procedures Date of Service Date of Service: 08/01/22 Assessment & Plan Assessment and plan (1) Acute renal failure: Status: Acute Plan 52-year-old woman with multiple medical problems who has had essentially normal renal function with a serum creatinine of 0.6 mg/dL about 8 months ago. She comes in with severe diarrhea and currently has acute kidney injury. The different diagnosis for acute kidney injury would include hypoperfusion from severe diarrhea. However the urine sediments reveal some RBCs and protein therefore glomerular nephritis or interstitial nephritis should be considered. Recent imaging study did not reveal any significant obstruction. Cr is better today Recommendations. Optimize blood pressure. Avoid hypotension. Agree with IV fluid Keep intake more than output. Monitor urine output. No absolute indication for dialysis. Serology ordered Keep jimenez Watch UO We will follow along with the team. Time Spent With Patient Time: Total time managing care of this patient today ____ minutes. Progress Note: Quality Stroke Does the patient have a stroke diagnosis?: No
[2022-07-31 10:14] LABS: HBc Num2 1.79 S/CO; HBc Num3 1.93 S/CO; Hepatitis B Core Antibody Reactive (Nonreactive)
[2022-07-31 10:55] LABS: Glucose, Whole Blood 149 mg/dL (60-115)
--- NOTE | 2022-07-31 11:05 | PC.RT ---
pt advised 2x by RT to go back on BIPAP due to pt looking lethargic. PT refused at this time.
--- NOTE | 2022-07-31 11:44 | P.PNIM_ITS ---
Subjective Subjective Date of Service: 07/31/22 Interval History: no RUQ pain dyspnea improved no fever diarrhea slightly improved SCr coming down Review of Systems Review of Systems: Yes all other systems are reviewed and are negative Physical Exam Vital Signs: Vital Signs: Last Vital Signs Temp 99.2 F 07/31/22 10:53 Pulse 99 07/31/22 11:03 Resp 16 07/31/22 11:03 BP 140/73 H 07/31/22 10:53 Pulse Ox 95 07/31/22 10:53 O2 Del Method Nasal Cannula 07/31/22 10:53 O2 Flow Rate 4 07/31/22 10:53 FiO2 30 07/30/22 22:11 Oxygen Flow Rate 2 07/28/22 16:28 BMI result Body Mass Index 39.8 Gen: chronic dyspnea HEENT: sclera anicteric, moist mucus membranes Neck: supple Lungs: diminished bilaterally Heart: regular, no murmurs Abd: soft, non-tender, non-distended. obese Ext: no edema Skin: warm/well-perfused Neuro: alert and oriented x3, no focal findings Psych: appropriate affect Objective Data Active Medications Acetaminophen (Acetaminophen 325 Mg Tablet) 650 mg PO Q6H PRN PRN Reason: Pain, Mild (Pain Scale 1-3) Last Admin: 07/30/22 06:20 Dose: 650 mg Documented By: GANESH Al Hydroxide/Mg Hydroxide (Magnesium Hydrox/Alum Hydrox 30 Ml Oral.Susp) 30 ml PO Q4H PRN PRN Reason: heartburn Last Admin: 07/29/22 17:55 Dose: 30 ml Documented By: NAYE Albuterol/Ipratropium (Albuterol/Iprat 2.5/0.5mg 3 Ml Ampul.Neb) 3 ml INHALE RQ4H PRN PRN Reason: Shortness of Breath/Wheezing Albuterol/Ipratropium (Albuterol/Iprat 2.5/0.5mg 3 Ml Ampul.Neb) 3 ml INHALE RQ4H WHILE AWAKE [facility] Last Admin: 07/31/22 10:56 Dose: 3 ml Documented By: MITESH Atorvastatin Calcium (Atorvastatin Calcium 20 Mg Tablet) 20 mg PO DAILY [facility] Last Admin: 07/31/22 09:42 Dose: 20 mg Documented By: CHANI Bupropion HCl (Bupropion Hcl 100 Mg Tablet) 100 mg PO DAILY [facility] Last Admin: 07/31/22 09:41 Dose: 100 mg Documented By: CHANI Clonazepam (Clonazepam 1 Mg Tablet) 1 mg PO BID PRN PRN Reason: Anxiety Last Admin: 07/29/22 22:17 Dose: 1 mg Documented By: NAYE Diltiazem HCl (Diltiazem Hcl Cd 180 Mg Cap.Er.24h) 360 mg PO DAILY [facility]; Protocol Last Admin: 07/29/22 09:56 Dose: 360 mg Documented By: LOYD Ergocalciferol (Ergocalciferol (Vitamin D2) 1,250 Mcg Capsule) 1,250 mcg PO Q7D [facility] Last Admin: 07/29/22 12:09 Dose: 1,250 mcg Documented By: LOYD Gabapentin (Gabapentin 300 Mg Capsule) 300 mg PO BID [facility] Last Admin: 07/31/22 09:41 Dose: 300 mg Documented By: CHANI Glucose (Glucose Gel 15 Gm Gel..Gram.) 15 gm PO Q15M PRN; Protocol PRN Reason: per Hypoglycemia Standing Ord. Glucose (Glucose Gel 15 Gm Gel..Gram.) 15 gm PO Q15M PRN; Protocol PRN Reason: per Hypoglycemia Standing Ord. Heparin Sodium (Porcine) (Heparin Sodium,Porcine 5,000 Unit/Ml Vial) 5,000 unit SUBCUT Q12H [facility] Last Admin: 07/31/22 00:02 Dose: 5,000 unit Documented By: ANTOIC Hydralazine HCl (Hydralazine Hcl 25 Mg Tablet) 25 mg PO TID [facility]; Protocol Last Admin: 07/29/22 09:56 Dose: 25 mg Documented By: LOYD Dextrose (D10) 250 mls @ 750 mls/hr IV Q15M PRN; Protocol PRN Reason: per Hypoglycemia Standing Ord. Dextrose (D10) 250 mls @ 750 mls/hr IV Q15M PRN; Protocol PRN Reason: per Hypoglycemia Standing Ord. Ceftriaxone Sodium 2 gm/ (Sodium Chloride) 50 mls @ 100 mls/hr IV Q24H [facility] Last Infusion: 07/31/22 10:50 Dose: 0 mls/hr Documented By: CHANI Sodium Chloride (Ns) 1,000 mls @ 150 mls/hr IVCONT .Q6H40M [facility] Last Infusion: 07/31/22 10:48 Dose: 0 mls/hr Documented By: CHANI Metronidazole (Flagyl) 500 mg in 100 mls @ 100 mls/hr IV Q8H [facility] Last Admin: 07/31/22 10:42 Dose: 100 mls/hr Documented By: CHANI Insulin Glargine (Insulin Glargine,Hum.Rec.Anlog 100 Unit/Ml 10 Ml Vial) 35 unit SUBCUT BEDTIME [facility] Last Admin: 07/30/22 21:40 Dose: 35 unit Documented By: NAYE Insulin Human Lispro (Insulin Lispro 100 Unit/Ml 3 Ml Vial) 0 unit SUBCUT QIDACHS [facility]; Protocol Last Admin: 07/31/22 11:02 Dose: Not Given Documented By: CHANI Non-Admin Reason: No Insulin Coverage Lamotrigine (Lamotrigine 25 Mg Tablet) 150 mg PO BID [facility] Last Admin: 07/31/22 09:41 Dose: 150 mg Documented By: CHANI Lidocaine (Lidocaine 4 % Patch Adh..Patch) 1 patch TRANSDERMA DAILY [facility] Last Admin: 07/31/22 09:44 Dose: 1 patch Documented By: CHANI Lisinopril (Lisinopril 40 Mg Tablet) 40 mg PO DAILY [facility]; Protocol Last Admin: 07/29/22 09:56 Dose: 40 mg Documented By: DOBROFilipe Loperamide HCl (Loperamide Hcl 2 Mg Capsule) 4 mg PO Q4H PRN PRN Reason: diarrhea Last Admin: 07/30/22 21:40 Dose: 4 mg Documented By: NAYE Loratadine (Loratadine 10 Mg Tablet) 10 mg PO DAILY [facility] Last Admin: 07/31/22 09:41 Dose: 10 mg Documented By: CHANI Methadone HCl (Methadone Hcl 20 Mg/2 Ml Oral.Conc) 50 mg PO DAILY [facility] Last Admin: 07/31/22 09:37 Dose: 50 mg Documented By: CHANI Methylprednisolone Sodium Succinate (Methylprednisolone Sod Succ 40 Mg/Ml Vial) 40 mg IVPUSH Q12H [facility] Last Admin: 07/31/22 06:12 Dose: 40 mg Documented By: ANTOIC Montelukast Sodium (Montelukast Sodium 10 Mg Tablet) 10 mg PO BEDTIME [facility] Last Admin: 07/30/22 21:40 Dose: 10 mg Documented By: NAYE Non-Formulary Medication (Roflumilast [Daliresp]) 500 mcg PO DAILY [facility] Omeprazole (Omeprazole 40 Mg Capsule.Dr) 40 mg PO BID@0630,1630 [facility] Last Admin: 07/31/22 06:12 Dose: 40 mg Documented By: ANTOIC Ondansetron HCl (Ondansetron Hcl 4 Mg/2 Ml Vial) 4 mg IVPUSH Q8H PRN PRN Reason: Nausea and Vomiting Last Admin: 07/29/22 17:10 Dose: 4 mg Documented By: NAYE Pharmacy Consult (Consult Rx Perform Med Rec) 1 each MISCELLANE ONCE PRN PRN Reason: Consult order Simethicone (Simethicone 80 Mg Tab.Chew) 80 mg PO QIDWMHS PRN PRN Reason: Abdominal Distention Sodium Chloride (0.9 % Sodium Chloride Flush 3 Ml Syringe) 3 ml IVFLUSH QSHIFT [facility] Last Admin: 07/31/22 10:48 Dose: Not Given Documented By: CHANI Non-Admin Reason: IV Running Theophylline (Theophylline Anhydrous Er 400 Mg Tab.Er.24h) 400 mg PO Q12H [facility] Last Admin: 07/31/22 09:41 Dose: 400 mg Documented By: CHANI Tiotropium [place] (Tiotropium [place] 18 Mcg Cap.W.Dev) 1 puff INHALE DAILY [facility] Last Admin: 07/31/22 08:03 Dose: 1 puff Documented By: MITESH Labs 07/31/22 06:47 07/31/22 06:47 Labs: Laboratory Results - last 24 hr 07/29/22 07/30/22 07/30/22 15:48 17:13 19:29 MCV MCH MCHC RDW Plt Count MPV Absolute Nucleated RBC Nucleated RBC % (auto) Fibrinogen VBG pH VBG pCO2 VBG pO2 VBG HCO3 VBG O2 Saturation VBG Base Excess Anion Gap Estim Creat Clear Calc Estimated GFR POC Glucose 99 119 H Random Glucose Calcium Ferritin C-Reactive Protein Triglycerides Stl C. cayetanensis PCR Not Detected Stool Rotavirus A PCR Not Detected Stl Adenov F 40/41 PCR Not Detected Stool Astrovirus (PCR) Not Detected Stool Campylobacter PCR Not Detected Stool Cryptosporidium PCR Not Detected Stl Sh Tox Pr E STEC PCR Not Detected Stool E coli O157 PCR Not applicable Stl Enterotoxigenic E PCR Not Detected Stool EPEC (PCR) Not Detected Stool EAEC (PCR) Not Detected Stl E. histolytica PCR Not Detected Stool Giardia Lamblia PCR Not Detected Stl P. shigelloides PCR Not Detected Stool Salmonella PCR Detected A Stool Sapovirus (PCR) Not Detected Stl Shigella/EIEC PCR Not Detected St Y.enterocolitica PCR Not Detected Stool Vibrio (PCR) Not Detected Stl Vibrio cholerae PCR Not Detected Stl Norovirus GI/GII PCR Not Detected Hep Bs Antigen Hep Bs Antibody Hep B Core Total Ab Hep B Core IgM Ab Hepatitis C Ab (EIA) HIV 1&2 Ab/P24 Ag 4thGn 07/31/22 07/31/22 07/31/22 06:47 06:47 06:47 MCV MCH MCHC RDW Plt Count MPV Absolute Nucleated RBC Nucleated RBC % (auto) Fibrinogen > 700 H VBG pH VBG pCO2 VBG pO2 VBG HCO3 VBG O2 Saturation VBG Base Excess Anion Gap Estim Creat Clear Calc Estimated GFR POC Glucose Random Glucose Calcium Ferritin 296 H C-Reactive Protein 14.15 H Triglycerides 306 Stl C. cayetanensis PCR Stool Rotavirus A PCR Stl Adenov F PCR Stool Astrovirus (PCR) Stool Campylobacter PCR Stool Cryptosporidium PCR Stl Sh Tox Pr E STEC PCR Stool E coli O157 PCR Stl Enterotoxigenic E PCR Stool EPEC (PCR) Stool EAEC (PCR) Stl E. histolytica PCR Stool Giardia Lamblia PCR Stl P. shigelloides PCR Stool Salmonella PCR Stool Sapovirus (PCR) Stl Shigella/EIEC PCR St Y.enterocolitica PCR Stool Vibrio (PCR) Stl Vibrio cholerae PCR Stl Norovirus GI/GII PCR Hep Bs Antigen Negative Hep Bs Antibody REACTIVE Hep B Core Total Ab Reactive Hep B Core IgM Ab Cancelled Hepatitis C Ab (EIA) HIV 1&2 Ab/P24 Ag 4thGn Nonreactive 07/31/22 07/31/22 07/31/22 06:47 06:47 06:47 MCV 90.1 MCH 29.0 MCHC 32.2 RDW 13.9 Plt Count 211 MPV 8.9 L Absolute Nucleated RBC 0.030 H Nucleated RBC % (auto) 0.6 H Fibrinogen VBG pH VBG pCO2 VBG pO2 VBG HCO3 VBG O2 Saturation VBG Base Excess Anion Gap 19 Estim Creat Clear Calc 16.2 Estimated GFR 12 POC Glucose Random Glucose 95 Calcium 7.3 L Ferritin C-Reactive Protein Triglycerides Stl C. cayetanensis PCR Stool Rotavirus A PCR Stl Adenov F 40/ PCR Stool Astrovirus (PCR) Stool Campylobacter PCR Stool Cryptosporidium PCR Stl Sh Tox Pr E STEC PCR Stool E coli O157 PCR Stl Enterotoxigenic E PCR Stool EPEC (PCR) Stool EAEC (PCR) Stl E. histolytica PCR Stool Giardia Lamblia PCR Stl P. shigelloides PCR Stool Salmonella PCR Stool Sapovirus (PCR) Stl Shigella/EIEC PCR St Y.enterocolitica PCR Stool Vibrio (PCR) Stl Vibrio cholerae PCR Stl Norovirus GI/GII PCR Hep Bs Antigen Hep Bs Antibody Hep B Core Total Ab Hep B Core IgM Ab Hepatitis C Ab (EIA) Reactive H HIV 1&2 Ab/P24 Ag 4thGn 07/31/22 07/31/22 07/31/22 06:55 07:35 10:49 MCV MCH MCHC RDW Plt Count MPV Absolute Nucleated RBC Nucleated RBC % (auto) Fibrinogen VBG pH 7.30 L VBG pCO2 39 VBG pO2 131 VBG HCO3 19 L VBG O2 Saturation 99.0 VBG Base Excess -6.1 Anion Gap Estim Creat Clear Calc Estimated GFR POC Glucose 114 149 H Random Glucose Calcium Ferritin C-Reactive Protein Triglycerides Stl C. cayetanensis PCR Stool Rotavirus A PCR Stl Adenov F PCR Stool Astrovirus (PCR) Stool Campylobacter PCR Stool Cryptosporidium PCR Stl Sh Tox Pr E STEC PCR Stool E coli O157 PCR Stl Enterotoxigenic E PCR Stool EPEC (PCR) Stool EAEC (PCR) Stl E. histolytica PCR Stool Giardia Lamblia PCR Stl P. shigelloides PCR Stool Salmonella PCR Stool Sapovirus (PCR) Stl Shigella/EIEC PCR St Y.enterocolitica PCR Stool Vibrio (PCR) Stl Vibrio cholerae PCR Stl Norovirus GI/GII PCR Hep Bs Antigen Hep Bs Antibody Hep B Core Total Ab Hep B Core IgM Ab Hepatitis C Ab (EIA) HIV 1&2 Ab/P24 Ag 4thGn Microbiology Microbiology Results: Microbiology 07/28/22 17:26 Blood Culture - Final Blood - Venous Salmonella species 07/28/22 17:26 Blood Culture - Final Blood - Venous Salmonella species Assessment and Plan (1) Acute and chronic respiratory failure with hypercapnia: Status: Acute Plan d#3 51yo F with morbid obesity, asthma/COPD overlap, obesity hypoventilation, chronic hypoxic/hypercapneic resp failure on 2L of O2 + nocturnal BiPAP, hypogammaglobulinemia on IVIg, opioid dependence on methadone, DM2, HTN presented with nausea/vomiting/diarrhea, found to be hypotensive admitted for respiratory failure and VERONIKA found to have Salmonella bacteremia # VERONIKA - improving with fluid resuscitation. likely prerenal or septic ATN [FENa was 1.5%] though serologic workup + urine eos pending. hold lisinopril. Nephrology following. Had 1500 UOP last 24h # Salmonella bacteremia - ceftriaxone d#3. Cultures sent to state lab for typing/speciation, but susceptible to ampicillin, ceftriaxone, levofloxacin, and TMP-SMX; resistant to cefazolin and gentamicin. Also on metronidazole d#2. Unclear source. Pt's diarrhea also PCR+ for Salmonella spp. - US suggested distended GB without stones but HIDA negative for acalculous cholecystitis - ID following # hypotension # lactic acidosis, resolved - fluid-responsive. note on chronic steroids [prednisone 20 mg/d]. now on IV methylprednisolone. hold antihypertensives as below. # acute/chronic hypoxic/hyppercanpeic respiratory failure - noctunral BiPAP, daily VBG # asthma/COPD exacerbation - IV steroids- start to taper, nebulized bronchoildators - continue theophylline, roflumilast, tiotropium # metabolic encephalopathy -resolved after BiPAP support # Tn-I elevation - likely demand, decreased on repeat and no EKG changes # DM2 - correction-dose lispro # HTN - hold antihypertensives (lisinopril, hydralazine, diltiazem) due to hypotension # mood disorder - bupropion, lamotrigine, clonazepam # opioid dependence - methadone 50 mg/d home dose # VTE ppx: UFH # dispo: TBD but will likely need STR In my clinical judgment, the patient requires continued inpatient hospitalization for the following reasons: resp failure, IV ABX, VERONIKA Time Spent With Patient Time: Total time managing care of this patient today __50__ minutes. Quality Stroke Does the patient have a stroke diagnosis?: No VTE Prior VTE?: No VTE Risk Level:: Medical - moderate - high VTE Device Contraindication: Treatment Not Indicated VTE Drug Contraindication: N/A - Med Ordered
[2022-07-31] MEDS: Acetaminophen 325 MG TABLET 650 MG PO (12:42)
[2022-07-31] MEDS: Loperamide HCl 2 MG CAPSULE 4 MG PO (12:43)
[2022-07-31] MEDS: clonazePAM 1 MG TABLET PO (12:43)
--- NOTE | 2022-07-31 13:21 | MHC.CM.PN ---
Pt not medically cleared for D/C due to continued need for IV abx. CM will continue to follow.
[2022-07-31 15:58] LABS: Glucose, Whole Blood 146 mg/dL (60-115)
[2022-07-31 19:42] LABS: Glucose, Whole Blood 128 mg/dL (60-115)
[2022-07-31] MEDS: Montelukast Sodium 10 MG TABLET PO (20:57)
[2022-07-31] MEDS: Insulin Glargine,Hum.rec.anlog 100 UNIT/ML 10 ML VIAL 35 UNIT SUBCUT (20:58)
[2022-08-01] VITALS (15 sets, daily range): BP systolic 138–175; BP diastolic 72–88; PULSE 98–137; RESP 18–22; TEMP 36.1–37.4; O2SAT 89–107; BMI 39.8
[2022-08-01] MEDS: Heparin Sodium,Porcine 5,000 UNIT/ML VIAL 5000 UNIT SUBCUT ×2 (00:26→12:32)
[2022-08-01] MEDS: metroNIDAZOLE/NS 500 MG/100 ML PIGGYBACK 100 MG IV ×3 (00:26→16:53)
[2022-08-01] MEDS: 0.9 % Sodium Chloride 1,000 ML 150 ML IVCONT (00:31)
[2022-08-01] MEDS: Omeprazole 40 MG CAPSULE.DR PO ×2 (05:03→16:49)
[2022-08-01 06:55] LABS: Venous Blood Gas Refer to POC result
[2022-08-01 06:57] LABS: VBG HCO3 27 mmol/L (22-26); VBG pCO2 45 mmHg; VBG pH 7.38 (7.32-7.43); VBG pO2 133 mmHg
[2022-08-01 07:00] LABS: Hematocrit 34.2 % (37.0-47.0); Hemoglobin 10.8 g/dl (12.0-16.0); Mean Corpuscular HGB Conc 31.6 g/dl (31.0-35.0); Mean Corpuscular Hemoglobin 28.4 pg (27.0-33.0); Mean Platelet Volume 8.9 fL (9.4-12.3); Platelet Count 211 X10*3/uL (160-400); White Blood Count 6.7 X10*3/uL (4.8-10.8)
[2022-08-01 07:35] LABS: Glucose, Whole Blood 93 mg/dL (60-115)
[2022-08-01 07:48] LABS: Alanine Aminotransferase 18 U/L (0-31); Albumin Level 3.1 g/dL (3.5-5.0); Alkaline Phosphatase 61 U/L (39-117); Anion Gap 12 (12-20); Aspartate Amino Transferase 27 U/L (5-31); Bilirubin Total 0.1 mg/dL (0.0-1.0); Blood Urea Nitrogen 46 mg/dL (9-16); Calcium 8.8 mg/dL (8.4-10.2); Carbon Dioxide 26 mmol/L (22-29); Chloride 115 mmol/L (96-108); Creatinine Clr Calc Pharmacy 54.3; Estimated Glomerular Filt Rate 48; Glucose Random 84 mg/dL (60-115); Magnesium 2.6 mg/dL (1.6-2.6); Sodium 150 mmol/L (135-145); Total Protein 5.4 g/dL (6.5-8.0)
[2022-08-01] MEDS: Albuterol/Iprat 2.5/0.5MG 3 ML AMPUL.NEB INHALE ×2 (07:50→11:14)
--- NOTE | 2022-08-01 08:21 | PM.PNGS ---
Subjective Subjective Date of Service: 08/01/22 Interval history: As per nurse, no events reported Denies abdominal pain On BiPAP Physical Exam Vital Signs: Vital Signs: Last Vital Signs Temp 97.0 F 08/01/22 07:40 Pulse 112 H 08/01/22 07:52 Resp 21 H 08/01/22 07:52 BP 175/88 H 08/01/22 07:40 Pulse Ox 100 08/01/22 07:40 O2 Del Method BiPAP 08/01/22 07:40 O2 Flow Rate 4 07/31/22 19:15 FiO2 30 07/30/22 22:11 Oxygen Flow Rate 2 07/28/22 16:28 BMI result Body Mass Index 39.8 Const: Other: On BiPAP, appears short of breath Resp: Other: On BiPAP Cardio: Rhythm: regular rhythm GI: Other: Obese but soft, no guarding or tenderness or rebound Objective Data Active Medications Acetaminophen (Acetaminophen 325 Mg Tablet) 650 mg PO Q6H PRN PRN Reason: Pain, Mild (Pain Scale 1-3) Last Admin: 07/31/22 12:42 Dose: 650 mg Documented By: CHANI Al Hydroxide/Mg Hydroxide (Magnesium Hydrox/Alum Hydrox 30 Ml Oral.Susp) 30 ml PO Q4H PRN PRN Reason: heartburn Last Admin: 07/29/22 17:55 Dose: 30 ml Documented By: NAYE Albuterol/Ipratropium (Albuterol/Iprat 2.5/0.5mg 3 Ml Ampul.Neb) 3 ml INHALE RQ4H PRN PRN Reason: Shortness of Breath/Wheezing Albuterol/Ipratropium (Albuterol/Iprat 2.5/0.5mg 3 Ml Ampul.Neb) 3 ml INHALE RQ4H WHILE AWAKE [facility] Last Admin: 08/01/22 07:50 Dose: 3 ml Documented By: WILLIAM Atorvastatin Calcium (Atorvastatin Calcium 20 Mg Tablet) 20 mg PO DAILY [facility] Last Admin: 07/31/22 09:42 Dose: 20 mg Documented By: CHANI Bupropion HCl (Bupropion Hcl 100 Mg Tablet) 100 mg PO DAILY [facility] Last Admin: 07/31/22 09:41 Dose: 100 mg Documented By: CHANI Clonazepam (Clonazepam 1 Mg Tablet) 1 mg PO BID PRN PRN Reason: Anxiety Last Admin: 07/31/22 12:43 Dose: 1 mg Documented By: CHANI Diltiazem HCl (Diltiazem Hcl Cd 180 Mg Cap.Er.24h) 360 mg PO DAILY [facility]; Protocol Last Admin: 07/29/22 09:56 Dose: 360 mg Documented By: LOYD Ergocalciferol (Ergocalciferol (Vitamin D2) 1,250 Mcg Capsule) 1,250 mcg PO Q7D [facility] Last Admin: 07/29/22 12:09 Dose: 1,250 mcg Documented By: LOYD Gabapentin (Gabapentin 300 Mg Capsule) 300 mg PO BID [facility] Last Admin: 07/31/22 20:58 Dose: 300 mg Documented By: BART Glucose (Glucose Gel 15 Gm Gel..Gram.) 15 gm PO Q15M PRN; Protocol PRN Reason: per Hypoglycemia Standing Ord. Glucose (Glucose Gel 15 Gm Gel..Gram.) 15 gm PO Q15M PRN; Protocol PRN Reason: per Hypoglycemia Standing Ord. Heparin Sodium (Porcine) (Heparin Sodium,Porcine 5,000 Unit/Ml Vial) 5,000 unit SUBCUT Q12H [facility] Last Admin: 08/01/22 00:26 Dose: 5,000 unit Documented By: BART Hydralazine HCl (Hydralazine Hcl 25 Mg Tablet) 25 mg PO TID [facility]; Protocol Last Admin: 07/29/22 09:56 Dose: 25 mg Documented By: LOYD Dextrose (D10) 250 mls @ 750 mls/hr IV Q15M PRN; Protocol PRN Reason: per Hypoglycemia Standing Ord. Dextrose (D10) 250 mls @ 750 mls/hr IV Q15M PRN; Protocol PRN Reason: per Hypoglycemia Standing Ord. Ceftriaxone Sodium 2 gm/ (Sodium Chloride) 50 mls @ 100 mls/hr IV Q24H [facility] Last Infusion: 07/31/22 10:50 Dose: 0 mls/hr Documented By: CHANI Metronidazole (Flagyl) 500 mg in 100 mls @ 100 mls/hr IV Q8H [facility] Last Infusion: 08/01/22 01:51 Dose: 0 mls/hr Documented By: BART Dextrose (D5w) 1,000 mls @ 75 mls/hr IVCONT .[id number] [facility] Stop: 08/01/22 21:19 Insulin Glargine (Insulin Glargine,Hum.Rec.Anlog 100 Unit/Ml 10 Ml Vial) 35 unit SUBCUT BEDTIME [facility] Last Admin: 07/31/22 20:58 Dose: 35 unit Documented By: BART Insulin Human Lispro (Insulin Lispro 100 Unit/Ml 3 Ml Vial) 0 unit SUBCUT QIDACHS [facility]; Protocol Last Admin: 08/01/22 07:45 Dose: Not Given Documented By: OLGA Non-Admin Reason: No Insulin Coverage Lamotrigine (Lamotrigine 25 Mg Tablet) 150 mg PO BID [facility] Last Admin: 07/31/22 20:58 Dose: 150 mg Documented By: BART Lidocaine (Lidocaine 4 % Patch Adh..Patch) 1 patch TRANSDERMA DAILY [facility] Last Admin: 07/31/22 09:44 Dose: 1 patch Documented By: CHANI Lisinopril (Lisinopril 40 Mg Tablet) 40 mg PO DAILY [facility]; Protocol Last Admin: 07/29/22 09:56 Dose: 40 mg Documented By: BROFilipe Loperamide HCl (Loperamide Hcl 2 Mg Capsule) 4 mg PO Q4H PRN PRN Reason: diarrhea Last Admin: 07/31/22 12:43 Dose: 4 mg Documented By: CHANI Loratadine (Loratadine 10 Mg Tablet) 10 mg PO DAILY [facility] Last Admin: 07/31/22 09:41 Dose: 10 mg Documented By: CHANI Methadone HCl (Methadone Hcl 20 Mg/2 Ml Oral.Conc) 50 mg PO DAILY [facility] Last Admin: 07/31/22 09:37 Dose: 50 mg Documented By: CHANI Methylprednisolone Sodium Succinate (Methylprednisolone Sod Succ 40 Mg/Ml Vial) 40 mg IVPUSH DAILY [facility] Montelukast Sodium (Montelukast Sodium 10 Mg Tablet) 10 mg PO BEDTIME [facility] Last Admin: 07/31/22 20:57 Dose: 10 mg Documented By: BART Non-Formulary Medication (Roflumilast [Daliresp]) 500 mcg PO DAILY [facility] Omeprazole (Omeprazole 40 Mg Capsule.Dr) 40 mg PO BID@0630,1630 [facility] Last Admin: 08/01/22 05:03 Dose: 40 mg Documented By: BART Ondansetron HCl (Ondansetron Hcl 4 Mg/2 Ml Vial) 4 mg IVPUSH Q8H PRN PRN Reason: Nausea and Vomiting Last Admin: 07/29/22 17:10 Dose: 4 mg Documented By: NAYE Pharmacy Consult (Consult Rx Perform Med Rec) 1 each MISCELLANE ONCE PRN PRN Reason: Consult order Simethicone (Simethicone 80 Mg Tab.Chew) 80 mg PO QIDWMHS PRN PRN Reason: Abdominal Distention Sodium Chloride (0.9 % Sodium Chloride Flush 3 Ml Syringe) 3 ml IVFLUSH QSHIFT [facility] Last Admin: 08/01/22 01:50 Dose: Not Given Documented By: BART Non-Admin Reason: IV Running Theophylline (Theophylline Anhydrous Er 400 Mg Tab.Er.24h) 400 mg PO Q12H [facility] Last Admin: 07/31/22 20:58 Dose: 400 mg Documented By: BART Tiotropium Flushing (Tiotropium Flushing 18 Mcg Cap.W.Dev) 1 puff INHALE DAILY [facility] Last Admin: 08/01/22 07:50 Dose: 1 puff Documented By: WILLIAM Labs 08/01/22 06:50 08/01/22 06:50 Labs: Laboratory Results - last 24 hr 07/31/22 07/31/22 07/31/22 06:47 06:47 06:47 MCV MCH MCHC RDW Plt Count MPV Absolute Nucleated RBC Nucleated RBC % (auto) Fibrinogen > 700 H VBG pH VBG pCO2 VBG pO2 VBG HCO3 VBG O2 Saturation VBG Base Excess Anion Gap Estim Creat Clear Calc Estimated GFR POC Glucose Random Glucose Calcium Magnesium Ferritin 296 H Total Bilirubin AST ALT Alkaline Phosphatase C-Reactive Protein 14.15 H Total Protein Albumin Triglycerides 306 Hep Bs Antigen Negative Hep Bs Antibody REACTIVE Hep B Core Total Ab Reactive Hep B Core IgM Ab Cancelled Hepatitis C Ab (EIA) HIV 1&2 Ab/P24 Ag 4thGn Nonreactive 07/31/22 07/31/22 07/31/22 06:47 10:49 15:55 MCV MCH MCHC RDW Plt Count MPV Absolute Nucleated RBC Nucleated RBC % (auto) Fibrinogen VBG pH VBG pCO2 VBG pO2 VBG HCO3 VBG O2 Saturation VBG Base Excess Anion Gap Estim Creat Clear Calc Estimated GFR POC Glucose 149 H 146 H Random Glucose Calcium Magnesium Ferritin Total Bilirubin AST ALT Alkaline Phosphatase C-Reactive Protein Total Protein Albumin Triglycerides Hep Bs Antigen Hep Bs Antibody Hep B Core Total Ab Hep B Core IgM Ab Hepatitis C Ab (EIA) Reactive H HIV 1&2 Ab/P24 Ag 4thGn 07/31/22 08/01/22 08/01/22 19:35 06:50 06:50 MCV 90.0 MCH 28.4 MCHC 31.6 RDW 14.0 Plt Count 211 MPV 8.9 L Absolute Nucleated RBC 0.000 Nucleated RBC % (auto) 0.0 Fibrinogen VBG pH VBG pCO2 VBG pO2 VBG HCO3 VBG O2 Saturation VBG Base Excess Anion Gap 12 Estim Creat Clear Calc 54.3 Estimated GFR 48 POC Glucose 128 H Random Glucose 84 Calcium 8.8 D Magnesium 2.6 Ferritin Total Bilirubin 0.1 AST 27 ALT 18 Alkaline Phosphatase 61 C-Reactive Protein Total Protein 5.4 L Albumin 3.1 L Triglycerides Hep Bs Antigen Hep Bs Antibody Hep B Core Total Ab Hep B Core IgM Ab Hepatitis C Ab (EIA) HIV 1&2 Ab/P24 Ag 4thGn 08/01/22 08/01/22 06:51 07:28 MCV MCH MCHC RDW Plt Count MPV Absolute Nucleated RBC Nucleated RBC % (auto) Fibrinogen VBG pH 7.38 VBG pCO2 45 VBG pO2 133 VBG HCO3 27 H VBG O2 Saturation 99.0 VBG Base Excess 2.0 Anion Gap Estim Creat Clear Calc Estimated GFR POC Glucose 93 Random Glucose Calcium Magnesium Ferritin Total Bilirubin AST ALT Alkaline Phosphatase C-Reactive Protein Total Protein Albumin Triglycerides Hep Bs Antigen Hep Bs Antibody Hep B Core Total Ab Hep B Core IgM Ab Hepatitis C Ab (EIA) HIV 1&2 Ab/P24 Ag 4thGn Microbiology Microbiology Results: Microbiology 07/28/22 17:26 Blood Culture - Final Blood - Venous Salmonella species 07/28/22 17:26 Blood Culture - Final Blood - Venous Salmonella species Procedures Date of Service Date of Service: 08/01/22 Progress Note: A&P Assessment and plan (1) Bacteremia: Status: Acute Assessment and Plan: CT scan, HIDA scan did not suggest biliary source Gallbladder filled up on HIDA scan showing patent cystic duct Report says that ejection fraction is 0% suggesting dyskinesia Patient however asymptomatic Continue current care as per hospitalist service Time Spent With Patient Time: Total time managing care of this patient today ____ minutes. Quality Stroke Does the patient have a stroke diagnosis?: No VTE Prior VTE?: No VTE Risk Level:: Medical - moderate - high VTE Device Contraindication: Treatment Not Indicated VTE Drug Contraindication: N/A - Med Ordered
[2022-08-01 08:30] LABS: EOS Counted 0 CELLS; EOS QC POS YES; EOS Stain Quality OK YES; WBC, Counted 100 CELLS
[2022-08-01] MEDS: Dextrose 5 % 1,000 ML 75 ML IVCONT (08:38)
[2022-08-01] MEDS: cefTRIAXone sodium 2 GM in 0.9 % Sodium Chloride 50 ML IV (08:43)
[2022-08-01] MEDS: methylPREDNISolone Sod Succ 40 MG/ML VIAL IVPUSH (08:44)
[2022-08-01] MEDS: lamoTRIgine 25 MG TABLET 150 MG PO ×2 (08:46→20:53)
[2022-08-01] MEDS: Loratadine 10 MG TABLET PO (08:47)
[2022-08-01] MEDS: Theophylline Anhydrous ER 400 MG TAB.ER.24H PO ×2 (08:47→20:54)
[2022-08-01] MEDS: Atorvastatin Calcium 20 MG TABLET PO (08:47)
[2022-08-01] MEDS: Lidocaine 4 % Patch ADH..PATCH 1 PATCH TRANSDERMA (08:47)
[2022-08-01] MEDS: Potassium Chloride ER 20 MEQ TAB.ER.PRT 40 MEQ PO (08:47)
[2022-08-01] MEDS: Gabapentin 300 MG CAPSULE PO ×2 (08:47→20:54)
[2022-08-01] MEDS: buPROPion HCL 100 MG TABLET PO (08:47)
--- NOTE | 2022-08-01 09:07 | MHC.CM.PN ---
This CM received a phone call from Evens from [facility], she can be reached at [phone]. Evens manages the patients methadone and was looking for an update/discharge date on the patient. This CM stated that the patient does not have a D/C date at this time. Evens also stated that the patients is looking for an update (in Bulgarian). Will discuss with pt.
--- NOTE | 2022-08-01 09:44 | PM.PNNEP ---
Subjective Subjective Date of Service: 08/01/22 Interval history: Events noted. Still has dyspnea. Creatinine is improved. Physical Exam Vital Signs: Vital Signs: Last Vital Signs Temp 97.0 F 08/01/22 07:40 Pulse 112 H 08/01/22 07:52 Resp 21 H 08/01/22 07:52 BP 175/88 H 08/01/22 07:40 Pulse Ox 100 08/01/22 07:40 O2 Del Method BiPAP 08/01/22 07:40 O2 Flow Rate 4 07/31/22 19:15 FiO2 30 07/30/22 22:11 Oxygen Flow Rate 2 07/28/22 16:28 BMI result Body Mass Index 39.8 Const: General: cooperative Cardio: Rate: regular rate Rhythm: regular rhythm GI: Palpation (GI): Soft to palpation Auscultation: normal bowel sounds Skin: General skin exam: no rashes or lesions noted Extrem: General: Yes normal to inspection and Yes no pedal edema Objective Data Labs 08/01/22 06:50 08/01/22 06:50 Labs: Laboratory Results - last 24 hr 07/31/22 07/31/22 07/31/22 06:47 06:47 06:47 WBC RBC Hgb Hct MCV MCH MCHC RDW Plt Count MPV Absolute Nucleated RBC Nucleated RBC % (auto) Fibrinogen > 700 H VBG pH VBG pCO2 VBG pO2 VBG HCO3 VBG O2 Saturation VBG Base Excess Sodium Potassium Chloride Carbon Dioxide Anion Gap BUN Creatinine Estim Creat Clear Calc Estimated GFR POC Glucose Random Glucose Calcium Magnesium Ferritin 296 H Total Bilirubin AST ALT Alkaline Phosphatase C-Reactive Protein 14.15 H Total Protein Albumin Triglycerides 306 Urine Eosinophils % Hep Bs Antigen Negative Hep Bs Antibody REACTIVE Hep B Core Total Ab Reactive Hep B Core IgM Ab Cancelled Hepatitis C Ab (EIA) HIV 1&2 Ab/P24 Ag 4thGn Nonreactive 07/31/22 07/31/22 07/31/22 06:47 10:49 15:55 WBC RBC Hgb Hct MCV MCH MCHC RDW Plt Count MPV Absolute Nucleated RBC Nucleated RBC % (auto) Fibrinogen VBG pH VBG pCO2 VBG pO2 VBG HCO3 VBG O2 Saturation VBG Base Excess Sodium Potassium Chloride Carbon Dioxide Anion Gap BUN Creatinine Estim Creat Clear Calc Estimated GFR POC Glucose 149 H 146 H Random Glucose Calcium Magnesium Ferritin Total Bilirubin AST ALT Alkaline Phosphatase C-Reactive Protein Total Protein Albumin Triglycerides Urine Eosinophils % Hep Bs Antigen Hep Bs Antibody Hep B Core Total Ab Hep B Core IgM Ab Hepatitis C Ab (EIA) Reactive H HIV 1&2 Ab/P24 Ag 4thGn 07/31/22 07/31/22 08/01/22 18:48 19:35 06:50 WBC 6.7 RBC 3.80 L Hgb 10.8 L Hct 34.2 L MCV 90.0 MCH 28.4 MCHC 31.6 RDW 14.0 Plt Count 211 MPV 8.9 L Absolute Nucleated RBC 0.000 Nucleated RBC % (auto) 0.0 Fibrinogen VBG pH VBG pCO2 VBG pO2 VBG HCO3 VBG O2 Saturation VBG Base Excess Sodium Potassium Chloride Carbon Dioxide Anion Gap BUN Creatinine Estim Creat Clear Calc Estimated GFR POC Glucose 128 H Random Glucose Calcium Magnesium Ferritin Total Bilirubin AST ALT Alkaline Phosphatase C-Reactive Protein Total Protein Albumin Triglycerides Urine Eosinophils % 0.0 Hep Bs Antigen Hep Bs Antibody Hep B Core Total Ab Hep B Core IgM Ab Hepatitis C Ab (EIA) HIV 1&2 Ab/P24 Ag 4thGn 08/01/22 08/01/22 08/01/22 06:50 06:51 07:28 WBC RBC Hgb Hct MCV MCH MCHC RDW Plt Count MPV Absolute Nucleated RBC Nucleated RBC % (auto) Fibrinogen VBG pH 7.38 VBG pCO2 45 VBG pO2 133 VBG HCO3 27 H VBG O2 Saturation 99.0 VBG Base Excess 2.0 Sodium 150 H Potassium 3.0 L Chloride 115 H Carbon Dioxide 26 Anion Gap 12 BUN 46 H Creatinine 1.18 Estim Creat Clear Calc 54.3 Estimated GFR 48 POC Glucose 93 Random Glucose 84 Calcium 8.8 D Magnesium 2.6 Ferritin Total Bilirubin 0.1 AST 27 ALT 18 Alkaline Phosphatase 61 C-Reactive Protein Total Protein 5.4 L Albumin 3.1 L Triglycerides Urine Eosinophils % Hep Bs Antigen Hep Bs Antibody Hep B Core Total Ab Hep B Core IgM Ab Hepatitis C Ab (EIA) HIV 1&2 Ab/P24 Ag 4thGn Microbiology Microbiology Results: Microbiology 07/28/22 17:26 Blood - Venous Blood Culture - Final Salmonella species 07/28/22 17:26 Blood - Venous Blood Culture - Final Salmonella species 07/28/22 21:47 Urine clean catch - Urine hernandez top Urine Culture - Final No growth. Procedures Date of Service Date of Service: 08/01/22 Assessment & Plan Assessment and plan (1) Acute renal failure: Status: Acute Plan 52-year-old woman with multiple medical problems who has had essentially normal renal function with a serum creatinine of 0.6 mg/dL about 8 months ago. She comes in with severe diarrhea and currently has acute kidney injury. The different diagnosis for acute kidney injury would include hypoperfusion from severe diarrhea. However the urine sediments reveal some RBCs and protein therefore glomerular nephritis or interstitial nephritis should be considered. Recent imaging study did not reveal any significant obstruction. Cr is significantly better today Hypernatremia due to free water deficit Recommendations. Optimize blood pressure. Avoid hypotension. Agree with IV hydration with hypotonic fluids to correct hypernatremia Keep intake more than output. Monitor urine output. No absolute indication for dialysis. Serology pending Keep jimenez Watch UO We will follow along with the team. Time Spent With Patient Time: Total time managing care of this patient today ____ minutes. Progress Note: Quality Stroke Does the patient have a stroke diagnosis?: No
[2022-08-01] MEDS: methADONE HCl 20 MG/2 ML ORAL.CONC 50 MG PO (09:50)
[2022-08-01 11:51] LABS: Glucose, Whole Blood 162 mg/dL (60-115)
--- NOTE | 2022-08-01 12:31 | P.PNIM_ITS ---
Subjective Subjective Date of Service: 08/01/22 Interval History: seen and examined this morning follow up for bacteremia sleepy but easily arousable to verbal stimuli feeling tired, full body pain denies sob, chest pain Review of Systems Review of Systems: Yes all other systems are reviewed and are negative Constitutional Constitutional: Denies chills and Denies fever(s) Cardiovascular Cardiovascular: Denies chest pain, Denies palpitations and Denies dyspnea Respiratory Respiratory: Denies dyspnea Gastrointestinal Gastrointestinal: Denies abdominal pain, Reports diarrhea and Denies nausea Endocrine Endocrine: Denies palpitations Physical Exam Vital Signs: Vital Signs: Last Vital Signs Temp 99.2 F 08/01/22 11:40 Pulse 137 H 08/01/22 11:40 Resp 18 08/01/22 11:40 BP 158/72 H 08/01/22 11:40 Pulse Ox 100 08/01/22 11:40 O2 Del Method Nasal Cannula 08/01/22 11:40 O2 Flow Rate 1 08/01/22 11:40 FiO2 30 07/30/22 22:11 Oxygen Flow Rate 2 07/28/22 16:28 BMI result Body Mass Index 39.8 Const: Other: a little sleepy, but easily arousable to verbal stimuli; no confusion Nutritional Appearance: obese Resp: Other: fine basilar rales Effort & Inspection: able to speak in complete sentences and no respiratory distress Cardio: Rate: tachycardic Heart sounds: S1 normal heart sound present and S2 normal heart sound present GI: Inspection: No distended Palpation (GI): Soft to palpation Neuro: Other: sleepy, no focal neuro deficit appreciated Extrem: Other: upper extremities some edema, b/l lower extremities trace edema Objective Data Active Medications Acetaminophen (Acetaminophen 325 Mg Tablet) 650 mg PO Q6H PRN PRN Reason: Pain, Mild (Pain Scale 1-3) Last Admin: 07/31/22 12:42 Dose: 650 mg Documented By: CHANI Al Hydroxide/Mg Hydroxide (Magnesium Hydrox/Alum Hydrox 30 Ml Oral.Susp) 30 ml PO Q4H PRN PRN Reason: heartburn Last Admin: 07/29/22 17:55 Dose: 30 ml Documented By: NAYE Albuterol/Ipratropium (Albuterol/Iprat 2.5/0.5mg 3 Ml Ampul.Neb) 3 ml INHALE RQ4H PRN PRN Reason: Shortness of Breath/Wheezing Albuterol/Ipratropium (Albuterol/Iprat 2.5/0.5mg 3 Ml Ampul.Neb) 3 ml INHALE RQ4H WHILE AWAKE ON LICENSE OF [facility] Last Admin: 08/01/22 11:14 Dose: 3 ml Documented By: WILLIAM Atorvastatin Calcium (Atorvastatin Calcium 20 Mg Tablet) 20 mg PO DAILY ON LICENSE OF [facility] Last Admin: 08/01/22 08:47 Dose: 20 mg Documented By: OLGA Bupropion HCl (Bupropion Hcl 100 Mg Tablet) 100 mg PO DAILY ON LICENSE OF [facility] Last Admin: 08/01/22 08:47 Dose: 100 mg Documented By: OLGA Clonazepam (Clonazepam 1 Mg Tablet) 1 mg PO BID PRN PRN Reason: Anxiety Last Admin: 07/31/22 12:43 Dose: 1 mg Documented By: FOSMORENITA Diltiazem HCl (Diltiazem Hcl Cd 180 Mg Cap.Er.24h) 360 mg PO DAILY ON LICENSE OF [facility]; Protocol Ergocalciferol (Ergocalciferol (Vitamin D2) 1,250 Mcg Capsule) 1,250 mcg PO Q7D ON LICENSE OF [facility] Last Admin: 07/29/22 12:09 Dose: 1,250 mcg Documented By: LOYD Gabapentin (Gabapentin 300 Mg Capsule) 300 mg PO BID ON LICENSE OF [facility] Last Admin: 08/01/22 08:47 Dose: 300 mg Documented By: OLGA Glucose (Glucose Gel 15 Gm Gel..Gram.) 15 gm PO Q15M PRN; Protocol PRN Reason: per Hypoglycemia Standing Ord. Glucose (Glucose Gel 15 Gm Gel..Gram.) 15 gm PO Q15M PRN; Protocol PRN Reason: per Hypoglycemia Standing Ord. Heparin Sodium (Porcine) (Heparin Sodium,Porcine 5,000 Unit/Ml Vial) 5,000 unit SUBCUT Q12H ON LICENSE OF [facility] Last Admin: 08/01/22 00:26 Dose: 5,000 unit Documented By: BART Hydralazine HCl (Hydralazine Hcl 25 Mg Tablet) 25 mg PO TID ON LICENSE OF [facility]; Protocol Last Admin: 07/29/22 09:56 Dose: 25 mg Documented By: LOYD Dextrose (D10) 250 mls @ 750 mls/hr IV Q15M PRN; Protocol PRN Reason: per Hypoglycemia Standing Ord. Dextrose (D10) 250 mls @ 750 mls/hr IV Q15M PRN; Protocol PRN Reason: per Hypoglycemia Standing Ord. Ceftriaxone Sodium 2 gm/ (Sodium Chloride) 50 mls @ 100 mls/hr IV Q24H ON LICENSE OF [facility] Last Infusion: 08/01/22 09:22 Dose: 0 mls/hr Documented By: OLGA Metronidazole (Flagyl) 500 mg in 100 mls @ 100 mls/hr IV Q8H ON LICENSE OF [facility] Last Infusion: 08/01/22 10:57 Dose: 0 mls/hr Documented By: OLGA Dextrose (D5w) 1,000 mls @ 75 mls/hr IVCONT .[id number] ON LICENSE OF [facility] Stop: 08/01/22 21:19 Last Admin: 08/01/22 08:38 Dose: 75 mls/hr Documented By: OLGA Insulin Glargine (Insulin Glargine,Hum.Rec.Anlog 100 Unit/Ml 10 Ml Vial) 35 unit SUBCUT BEDTIME ON LICENSE OF [facility] Last Admin: 07/31/22 20:58 Dose: 35 unit Documented By: BART Insulin Human Lispro (Insulin Lispro 100 Unit/Ml 3 Ml Vial) 0 unit SUBCUT QIDACHS ON LICENSE OF [facility]; Protocol Last Admin: 08/01/22 07:45 Dose: Not Given Documented By: OLGA Non-Admin Reason: No Insulin Coverage Lamotrigine (Lamotrigine 25 Mg Tablet) 150 mg PO BID ON LICENSE OF [facility] Last Admin: 08/01/22 08:46 Dose: 150 mg Documented By: OLGA Lidocaine (Lidocaine 4 % Patch Adh..Patch) 1 patch TRANSDERMA DAILY ON LICENSE OF [facility] Last Admin: 08/01/22 08:47 Dose: 1 patch Documented By: OLGA Lisinopril (Lisinopril 40 Mg Tablet) 40 mg PO DAILY ON LICENSE OF [facility]; Protocol Last Admin: 07/29/22 09:56 Dose: 40 mg Documented By: DOBROFilipe Loperamide HCl (Loperamide Hcl 2 Mg Capsule) 4 mg PO Q4H PRN PRN Reason: diarrhea Last Admin: 07/31/22 12:43 Dose: 4 mg Documented By: CHANI Loratadine (Loratadine 10 Mg Tablet) 10 mg PO DAILY ON LICENSE OF [facility] Last Admin: 08/01/22 08:47 Dose: 10 mg Documented By: OLGA Methadone HCl (Methadone Hcl 20 Mg/2 Ml Oral.Conc) 50 mg PO DAILY ON LICENSE OF [facility] Last Admin: 08/01/22 09:50 Dose: 50 mg Documented By: OLGA Methylprednisolone Sodium Succinate (Methylprednisolone Sod Succ 40 Mg/Ml Vial) 40 mg IVPUSH DAILY ON LICENSE OF [facility] Last Admin: 08/01/22 08:44 Dose: 40 mg Documented By: OLGA Montelukast Sodium (Montelukast Sodium 10 Mg Tablet) 10 mg PO BEDTIME ON LICENSE OF [facility] Last Admin: 07/31/22 20:57 Dose: 10 mg Documented By: BART Non-Formulary Medication (Roflumilast [Daliresp]) 500 mcg PO DAILY ON LICENSE OF [facility] Omeprazole (Omeprazole 40 Mg Capsule.Dr) 40 mg PO BID@0630,1630 ON LICENSE OF [facility] Last Admin: 08/01/22 05:03 Dose: 40 mg Documented By: BART Ondansetron HCl (Ondansetron Hcl 4 Mg/2 Ml Vial) 4 mg IVPUSH Q8H PRN PRN Reason: Nausea and Vomiting Last Admin: 07/29/22 17:10 Dose: 4 mg Documented By: NAYE Pharmacy Consult (Consult Rx Perform Med Rec) 1 each MISCELLANE ONCE PRN PRN Reason: Consult order Simethicone (Simethicone 80 Mg Tab.Chew) 80 mg PO QIDWMHS PRN PRN Reason: Abdominal Distention Sodium Chloride (0.9 % Sodium Chloride Flush 3 Ml Syringe) 3 ml IVFLUSH QSHIFT ON LICENSE OF [facility] Last Admin: 08/01/22 08:51 Dose: Not Given Documented By: OLGA Non-Admin Reason: IV Running Theophylline (Theophylline Anhydrous Er 400 Mg Tab.Er.24h) 400 mg PO Q12H ON LICENSE OF [facility] Last Admin: 08/01/22 08:47 Dose: 400 mg Documented By: OLGA Tiotropium [place] (Tiotropium [place] 18 Mcg Cap.W.Dev) 1 puff INHALE DAILY ON LICENSE OF [facility] Last Admin: 08/01/22 07:50 Dose: 1 puff Documented By: WILLIAM Labs 08/01/22 06:50 08/01/22 06:50 Labs: Laboratory Results - last 24 hr 07/31/22 07/31/22 07/31/22 15:55 18:48 19:35 MCV MCH MCHC RDW Plt Count MPV Absolute Nucleated RBC Nucleated RBC % (auto) VBG pH VBG pCO2 VBG pO2 VBG HCO3 VBG O2 Saturation VBG Base Excess Anion Gap Estim Creat Clear Calc Estimated GFR POC Glucose 146 H 128 H Random Glucose Calcium Magnesium Total Bilirubin AST ALT Alkaline Phosphatase Total Protein Albumin Urine Eosinophils % 0.0 08/01/22 08/01/22 08/01/22 06:50 06:50 06:51 MCV 90.0 MCH 28.4 MCHC 31.6 RDW 14.0 Plt Count 211 MPV 8.9 L Absolute Nucleated RBC 0.000 Nucleated RBC % (auto) 0.0 VBG pH 7.38 VBG pCO2 45 VBG pO2 133 VBG HCO3 27 H VBG O2 Saturation 99.0 VBG Base Excess 2.0 Anion Gap 12 Estim Creat Clear Calc 54.3 Estimated GFR 48 POC Glucose Random Glucose 84 Calcium 8.8 D Magnesium 2.6 Total Bilirubin 0.1 AST 27 ALT 18 Alkaline Phosphatase 61 Total Protein 5.4 L Albumin 3.1 L Urine Eosinophils % 08/01/22 08/01/22 07:28 11:39 MCV MCH MCHC RDW Plt Count MPV Absolute Nucleated RBC Nucleated RBC % (auto) VBG pH VBG pCO2 VBG pO2 VBG HCO3 VBG O2 Saturation VBG Base Excess Anion Gap Estim Creat Clear Calc Estimated GFR POC Glucose 93 162 H Random Glucose Calcium Magnesium Total Bilirubin AST ALT Alkaline Phosphatase Total Protein Albumin Urine Eosinophils % Microbiology Microbiology Results: Microbiology 07/28/22 17:26 Blood Culture - Final Blood - Venous Salmonella species 07/28/22 17:26 Blood Culture - Final Blood - Venous Salmonella species Assessment and Plan (1) Salmonella gastroenteritis: Status: Acute (2) Bacteremia: Status: Acute Plan This is 51yo F with morbid obesity, asthma/COPD overlap, obesity hypoventilation, chronic hypoxic/hypercapneic resp failure on 2L of O2 + nocturnal BiPAP, hypogammaglobulinemia on IVIg, opioid dependence on methadone, DM2, HTN presented with nausea/vomiting/diarrhea, found to be hypotensive admitted for respiratory failure and VERONIKA found to have Salmonella bacteremia VERONIKA improving with fluid resuscitation. SCr down to 1.18 today. will d/c NS likely prerenal or septic ATN [FENa was 1.5%] though serologic workup + urine eos pending. hold lisinopril Nephrology following continue to monitor renal function Salmonella bacteremia ceftriaxone started 07/29 Cultures [facility] lab for typing/speciation, but susceptible to ampicillin, ceftriaxone, levofloxacin, and TMP-[id number]; resistant to cefazolin and gentamicin. Also on metronidazole. Unclear source. diarrhea also PCR+ for Salmonella spp. US suggested distended GB without stones but HIDA negative for acalculous cholecystitis ID following Hypernatremia r/t NS stop NS and start gentle D5W, encourage po intake follow BMP hypokalemia k 3.0, will replace and follow hypotension lactic acidosis, resolved - fluid-responsive. note on chronic steroids [prednisone 20 mg/d]. now on IV methylprednisolone. hold antihypertensives as below. acute/chronic hypoxic/hyppercanpeic respiratory failure - nocturnal BiPAP, daily VBG PCO2 stable asthma/COPD exacerbation - IV steroids- start to taper, nebulized bronchoildators - continue theophylline, roflumilast, tiotropium metabolic encephalopathy -resolved after BiPAP support Tn-I elevation - likely demand, decreased on repeat and no EKG changes DM2 - correction-dose lispro HTN antihypertensives held (lisinopril, hydralazine) due to hypotension bp improving, will result diltiazem in light of tachycardia monitor BP closely and resume others as bp tolerates mood disorder - bupropion, lamotrigine, clonazepam opioid dependence - methadone 50 mg/d home dose Morbid obesity BMI 39.9 weight loss encouraged VTE ppx: UFH dispo: TBD but will likely need STR attending - dr. Jones In my clinical judgment, the patient requires continued inpatient hospitalization for the following reasons: resp failure, IV ABX Time Spent With Patient Time: Total time managing care of this patient today ____ minutes. Quality Stroke Does the patient have a stroke diagnosis?: No VTE Prior VTE?: No VTE Risk Level:: Medical - moderate - high VTE Device Contraindication: Treatment Not Indicated VTE Drug Contraindication: N/A - Med Ordered
[2022-08-01] MEDS: dilTIAZem HCL CD 180 MG CAP.ER.24H 360 MG PO (12:32)
[2022-08-01] MEDS: Insulin Lispro 100 UNIT/ML 3 ML VIAL SUBCUT ×2 (12:32→16:49)
[2022-08-01] MEDS: levalbuterol HCL 1.25 MG/3 ML VIAL.NEB INHALE ×2 (15:08→19:39)
[2022-08-01 16:11] LABS: Glucose, Whole Blood 163 mg/dL (60-115)
--- NOTE | 2022-08-01 16:48 | PC.NURSE ---
due to swelling of hands and fingers 2 ring removed, placed in cup with pt lable and given to son to bring home for safe keeping.
[2022-08-01] MEDS: Loperamide HCl 2 MG CAPSULE 4 MG PO (16:49)
[2022-08-01 20:34] LABS: Glucose, Whole Blood 133 mg/dL (60-115)
[2022-08-01] MEDS: Montelukast Sodium 10 MG TABLET PO (20:53)
[2022-08-01] MEDS: Insulin Glargine,Hum.rec.anlog 100 UNIT/ML 10 ML VIAL 35 UNIT SUBCUT (20:54)
[2022-08-02] VITALS (10 sets, daily range): BP systolic 140–175; BP diastolic 81–86; PULSE 110–125; RESP 15–22; TEMP 36.3–36.9; O2SAT 91–97; BMI 37.6
[2022-08-02] MEDS: metroNIDAZOLE/NS 500 MG/100 ML PIGGYBACK 100 MG IV
[2022-08-02] MEDS: Heparin Sodium,Porcine 5,000 UNIT/ML VIAL 5000 UNIT SUBCUT ×2 (00:01→22:06)
[2022-08-02] MEDS: Omeprazole 40 MG CAPSULE.DR PO ×2 (05:32→16:20)
[2022-08-02 06:42] LABS: Venous Blood Gas Refer to POC result
[2022-08-02 06:44] LABS: VBG Base Excess 12.8 mmol/L; VBG HCO3 36 mmol/L (22-26); VBG pCO2 44 mmHg; VBG pH 7.53 (7.32-7.43); VBG pO2 108 mmHg
[2022-08-02] MEDS: levalbuterol HCL 1.25 MG/3 ML VIAL.NEB INHALE ×3 (07:42→19:46)
[2022-08-02] MEDS: cefTRIAXone sodium 2 GM in 0.9 % Sodium Chloride 50 ML IV (07:44)
[2022-08-02] MEDS: 0.9 % Sodium Chloride Flush 3 ML SYRINGE IVFLUSH (07:45)
[2022-08-02 08:17] LABS: Glucose, Whole Blood 91 mg/dL (60-115)
[2022-08-02 08:18] LABS: Anion Gap 15 (12-20); Blood Urea Nitrogen 27 mg/dL (9-16); Carbon Dioxide 30 mmol/L (22-29); Chloride 105 mmol/L (96-108); Creatinine Clr Calc Pharmacy 81.5; Estimated Glomerular Filt Rate > 60; Glucose Random 81 mg/dL (60-115); Potassium 3.1 mmol/L (3.3-5.1); Sodium 147 mmol/L (135-145)
--- NOTE | 2022-08-02 08:21 | P.PNGS_ITS ---
Subjective Subjective Date of Service: 08/02/22 Interval history: as per staff, pt seems to be more drowsy the past several days than baseline also not eating well - says she has no appetite when asked, she admits to periodic diffuse abdominal pain, vague, not related to oral intake Physical Exam Vital Signs: Vital Signs: Last Vital Signs Temp 98.3 F 08/02/22 07:20 Pulse 116 H 08/02/22 07:45 Resp 20 08/02/22 07:45 BP 156/85 H 08/02/22 07:20 Pulse Ox 93 08/02/22 07:20 O2 Del Method Nasal Cannula 08/02/22 07:20 O2 Flow Rate 3 08/02/22 07:20 FiO2 21 08/01/22 23:38 Oxygen Flow Rate 2 07/28/22 16:28 BMI result Body Mass Index 37.6 Const: Other: appears short of breath Resp: Other: appears short of breath Cardio: Rhythm: regular rhythm GI: Other: mild diffuse tenderness, no Perez's sign Palpation (GI): Soft to palpation, not firm and no guarding Objective Data Active Medications Acetaminophen (Acetaminophen 325 Mg Tablet) 650 mg PO Q6H PRN PRN Reason: Pain, Mild (Pain Scale 1-3) Last Admin: 07/31/22 12:42 Dose: 650 mg Documented By: CHANI Al Hydroxide/Mg Hydroxide (Magnesium Hydrox/Alum Hydrox 30 Ml Oral.Susp) 30 ml PO Q4H PRN PRN Reason: heartburn Last Admin: 07/29/22 17:55 Dose: 30 ml Documented By: NAYE Albuterol/Ipratropium (Albuterol/Iprat 2.5/0.5mg 3 Ml Ampul.Neb) 3 ml INHALE RQ4H PRN PRN Reason: Shortness of Breath/Wheezing Atorvastatin Calcium (Atorvastatin Calcium 20 Mg Tablet) 20 mg PO DAILY [facility] Last Admin: 08/01/22 08:47 Dose: 20 mg Documented By: OLGA Bupropion HCl (Bupropion Hcl 100 Mg Tablet) 100 mg PO DAILY [facility] Last Admin: 08/01/22 08:47 Dose: 100 mg Documented By: OLGA Clonazepam (Clonazepam 1 Mg Tablet) 1 mg PO BID PRN PRN Reason: Anxiety Last Admin: 07/31/22 12:43 Dose: 1 mg Documented By: CHANI Diltiazem HCl (Diltiazem Hcl Cd 180 Mg Cap.Er.24h) 360 mg PO DAILY [facility]; Protocol Last Admin: 08/01/22 12:32 Dose: 360 mg Documented By: OLGA Ergocalciferol (Ergocalciferol (Vitamin D2) 1,250 Mcg Capsule) 1,250 mcg PO Q7D [facility] Last Admin: 07/29/22 12:09 Dose: 1,250 mcg Documented By: LOYD Gabapentin (Gabapentin 300 Mg Capsule) 300 mg PO BID [facility] Last Admin: 08/01/22 20:54 Dose: 300 mg Documented By: ANTONINA Glucose (Glucose Gel 15 Gm Gel..Gram.) 15 gm PO Q15M PRN; Protocol PRN Reason: per Hypoglycemia Standing Ord. Glucose (Glucose Gel 15 Gm Gel..Gram.) 15 gm PO Q15M PRN; Protocol PRN Reason: per Hypoglycemia Standing Ord. Heparin Sodium (Porcine) (Heparin Sodium,Porcine 5,000 Unit/Ml Vial) 5,000 unit SUBCUT Q12H [facility] Last Admin: 08/02/22 00:01 Dose: 5,000 unit Documented By: ANTONINA Hydralazine HCl (Hydralazine Hcl 25 Mg Tablet) 25 mg PO TID [facility]; Protocol Last Admin: 07/29/22 09:56 Dose: 25 mg Documented By: LOYD Dextrose (D10) 250 mls @ 750 mls/hr IV Q15M PRN; Protocol PRN Reason: per Hypoglycemia Standing Ord. Dextrose (D10) 250 mls @ 750 mls/hr IV Q15M PRN; Protocol PRN Reason: per Hypoglycemia Standing Ord. Ceftriaxone Sodium 2 gm/ (Sodium Chloride) 50 mls @ 100 mls/hr IV Q24H [facility] Last Admin: 08/02/22 07:44 Dose: 100 mls/hr Documented By: OLGA Metronidazole (Flagyl) 500 mg in 100 mls @ 100 mls/hr IV Q8H [facility] Last Infusion: 08/02/22 01:06 Dose: 100 mls/hr Documented By: ANTONINA Insulin Glargine (Insulin Glargine,Hum.Rec.Anlog 100 Unit/Ml 10 Ml Vial) 35 unit SUBCUT BEDTIME [facility] Last Admin: 08/01/22 20:54 Dose: 35 unit Documented By: ANTONINA Insulin Human Lispro (Insulin Lispro 100 Unit/Ml 3 Ml Vial) 0 unit SUBCUT QIDACHS [facility]; Protocol Last Admin: 08/01/22 22:15 Dose: Not Given Documented By: ANTONINA Non-Admin Reason: No Insulin Coverage Lamotrigine (Lamotrigine 25 Mg Tablet) 150 mg PO BID [facility] Last Admin: 08/01/22 20:53 Dose: 150 mg Documented By: ANTONINA Levalbuterol HCl (Levalbuterol Hcl 1.25 Mg/3 Ml Vial.Neb) 1.25 mg INHALE RQ4H WHILE AWAKE [facility] Last Admin: 08/02/22 07:42 Dose: 1.25 mg Documented By: WILLIAM Lidocaine (Lidocaine 4 % Patch Adh..Patch) 1 patch TRANSDERMA DAILY [facility] Last Admin: 08/01/22 08:47 Dose: 1 patch Documented By: OLGA Lisinopril (Lisinopril 40 Mg Tablet) 40 mg PO DAILY [facility]; Protocol Last Admin: 07/29/22 09:56 Dose: 40 mg Documented By: LOYD Loperamide HCl (Loperamide Hcl 2 Mg Capsule) 4 mg PO Q4H PRN PRN Reason: diarrhea Last Admin: 08/01/22 16:49 Dose: 4 mg Documented By: OLGA Loratadine (Loratadine 10 Mg Tablet) 10 mg PO DAILY [facility] Last Admin: 08/01/22 08:47 Dose: 10 mg Documented By: OLGA Methadone HCl (Methadone Hcl 20 Mg/2 Ml Oral.Conc) 50 mg PO DAILY [facility] Last Admin: 08/01/22 09:50 Dose: 50 mg Documented By: OLGA Methylprednisolone Sodium Succinate (Methylprednisolone Sod Succ 40 Mg/Ml Vial) 40 mg IVPUSH DAILY [facility] Last Admin: 08/01/22 08:44 Dose: 40 mg Documented By: OLGA Montelukast Sodium (Montelukast Sodium 10 Mg Tablet) 10 mg PO BEDTIME [facility] Last Admin: 08/01/22 20:53 Dose: 10 mg Documented By: ANTONINA Non-Formulary Medication (Roflumilast [Daliresp]) 500 mcg PO DAILY [facility] Omeprazole (Omeprazole 40 Mg Capsule.) 40 mg PO BID@0630,1630 [facility] Last Admin: 08/02/22 05:32 Dose: 40 mg Documented By: ANTONINA Ondansetron HCl (Ondansetron Hcl 4 Mg/2 Ml Vial) 4 mg IVPUSH Q8H PRN PRN Reason: Nausea and Vomiting Last Admin: 07/29/22 17:10 Dose: 4 mg Documented By: NAYE Pharmacy Consult (Consult Rx Perform Med Rec) 1 each MISCELLANE ONCE PRN PRN Reason: Consult order Simethicone (Simethicone 80 Mg Tab.Chew) 80 mg PO QIDWMHS PRN PRN Reason: Abdominal Distention Sodium Chloride (0.9 % Sodium Chloride Flush 3 Ml Syringe) 3 ml IVFLUSH QSHIFT [facility] Last Admin: 08/02/22 07:45 Dose: 3 ml Documented By: OLGA Theophylline (Theophylline Anhydrous Er 400 Mg Tab.Er.24h) 400 mg PO Q12H [facility] Last Admin: 08/01/22 20:54 Dose: 400 mg Documented By: ANTONINA Tiotropium [place] (Tiotropium [place] 18 Mcg Cap.W.Dev) 1 puff INHALE DAILY [facility] Last Admin: 08/02/22 07:42 Dose: 1 puff Documented By: ALEJANDRONE Labs 08/01/22 06:50 08/02/22 08:00 Labs: Laboratory Results - last 24 hr 07/31/22 08/01/22 08/01/22 18:48 11:39 16:04 VBG pH VBG pCO2 VBG pO2 VBG HCO3 VBG O2 Saturation VBG Base Excess Anion Gap Estim Creat Clear Calc Estimated GFR POC Glucose 162 H 163 H Random Glucose Urine Eosinophils % 0.0 08/01/22 08/02/22 08/02/22 20:20 06:35 07:37 VBG pH 7.53 H VBG pCO2 44 VBG pO2 108 VBG HCO3 36 H VBG O2 Saturation 99.0 VBG Base Excess 12.8 Anion Gap Estim Creat Clear Calc Estimated GFR POC Glucose 133 H 91 Random Glucose Urine Eosinophils % 08/02/22 08:00 VBG pH VBG pCO2 VBG pO2 VBG HCO3 VBG O2 Saturation VBG Base Excess Anion Gap 15 Estim Creat Clear Calc 81.5 Estimated GFR > 60 POC Glucose Random Glucose 81 Urine Eosinophils % Microbiology Microbiology Results: Microbiology 07/28/22 17:26 Blood Culture - Final Blood - Venous Salmonella species 07/28/22 17:26 Blood Culture - Final Blood - Venous Salmonella species Procedures Date of Service Date of Service: 08/02/22 Progress Note: A&P Assessment and plan (1) Bacteremia: Status: Acute Assessment and Plan: imaging studies reviewed - unlikely to be from GI or biliary source HIDA scan does show poor EF - suggestive of biliary dyskinesia, may be due to acute illness at this time, no urgent surgical intervention necessary pt remains short of breath - has chronic respiratory failure mgt as per hospitalist Time Spent With Patient Time: Total time managing care of this patient today ____ minutes. Quality Stroke Does the patient have a stroke diagnosis?: No VTE Prior VTE?: No VTE Risk Level:: Medical - moderate - high VTE Device Contraindication: Treatment Not Indicated VTE Drug Contraindication: N/A - Med Ordered
[2022-08-02 08:24] LABS: Calcium 9.7 mg/dL (8.4-10.2)
[2022-08-02] MEDS: Gabapentin 300 MG CAPSULE PO ×2 (08:33→20:46)
[2022-08-02] MEDS: Atorvastatin Calcium 20 MG TABLET PO (08:33)
[2022-08-02] MEDS: Lidocaine 4 % Patch ADH..PATCH 1 PATCH TRANSDERMA (08:33)
[2022-08-02] MEDS: lamoTRIgine 25 MG TABLET 150 MG PO ×2 (08:33→20:45)
[2022-08-02] MEDS: dilTIAZem HCL CD 180 MG CAP.ER.24H 360 MG PO (08:34)
[2022-08-02] MEDS: Theophylline Anhydrous ER 400 MG TAB.ER.24H PO ×2 (08:34→20:54)
[2022-08-02] MEDS: Loratadine 10 MG TABLET PO (08:34)
[2022-08-02] MEDS: buPROPion HCL 100 MG TABLET PO (08:34)
--- NOTE | 2022-08-02 10:15 | PC.NURSE ---
pt IV leaking, this nurse tried twice and was unsuccessful. Nurse educator tried twice and was unsucessul. reach out to ED for IV. MAUREEN Gupta aware. late on Abx.
[2022-08-02] MEDS: methADONE HCl 20 MG/2 ML ORAL.CONC 50 MG PO (10:18)
[2022-08-02] MEDS: Potassium Chloride ER 20 MEQ TAB.ER.PRT 40 MEQ PO ×2 (10:23→20:45)
[2022-08-02 11:20] LABS: Glucose, Whole Blood 112 mg/dL (60-115)
--- NOTE | 2022-08-02 13:31 | MHC.CM.PN ---
EMR reviewed and per MD rounds, pt not medically cleared for D/C due to continued need for IV antibiotics and respiratory failure. CM will continue to follow.
--- NOTE | 2022-08-02 15:40 | HO.PM.IMPN ---
Subjective Subjective Date of Service: 08/02/22 Interval History: seen and examined this morning follow up for bacteremia more awake this morning, answering questions appropriately chest pain, fever, chills Review of Systems Review of Systems: Yes all other systems are reviewed and are negative Constitutional Constitutional: Denies chills and Denies fever(s) ENT Ears, Nose, Mouth, and Throat: Denies dizziness Cardiovascular Cardiovascular: Denies chest pain and Denies palpitations Respiratory Respiratory: Denies cough Gastrointestinal Gastrointestinal: Reports diarrhea Neurologic Neurologic: Denies dizziness Endocrine Endocrine: Denies palpitations Physical Exam Vital Signs: Vital Signs: Last Vital Signs Temp 98.4 F 08/02/22 11:07 Pulse 124 H 08/02/22 11:16 Resp 22 H 08/02/22 11:16 BP 164/86 H 08/02/22 11:07 Pulse Ox 94 08/02/22 11:07 O2 Del Method Nasal Cannula 08/02/22 11:07 O2 Flow Rate 3 08/02/22 11:07 FiO2 21 08/01/22 23:38 Oxygen Flow Rate 2 07/28/22 16:28 BMI result Body Mass Index 37.6 Const: General: alert and awake Nutritional Appearance: obese Orientation/consciousness: patient oriented x3 Resp: Effort & Inspection: able to speak in complete sentences and no respiratory distress Cardio: Rate: tachycardic Heart sounds: S1 normal heart sound present and S2 normal heart sound present GI: Inspection: No distended Palpation (GI): Soft to palpation : Other: jimenez in place Neuro: Other: grossly nonfocal, able to move all extremities General: patient oriented x3 and moves all extremities Extrem: General: Yes no pedal edema Objective Data Active Medications Acetaminophen (Acetaminophen 325 Mg Tablet) 650 mg PO Q6H PRN PRN Reason: Pain, Mild (Pain Scale 1-3) Last Admin: 07/31/22 12:42 Dose: 650 mg Documented By: CHANI Al Hydroxide/Mg Hydroxide (Magnesium Hydrox/Alum Hydrox 30 Ml Oral.Susp) 30 ml PO Q4H PRN PRN Reason: heartburn Last Admin: 07/29/22 17:55 Dose: 30 ml Documented By: NAYE Albuterol/Ipratropium (Albuterol/Iprat 2.5/0.5mg 3 Ml Ampul.Neb) 3 ml INHALE RQ4H PRN PRN Reason: Shortness of Breath/Wheezing Atorvastatin Calcium (Atorvastatin Calcium 20 Mg Tablet) 20 mg PO DAILY [facility] Last Admin: 08/02/22 08:33 Dose: 20 mg Documented By: OLGA Bupropion HCl (Bupropion Hcl 100 Mg Tablet) 100 mg PO DAILY [facility] Last Admin: 08/02/22 08:34 Dose: 100 mg Documented By: OLGA Clonazepam (Clonazepam 1 Mg Tablet) 1 mg PO BID PRN PRN Reason: Anxiety Last Admin: 07/31/22 12:43 Dose: 1 mg Documented By: CHANI Diltiazem HCl (Diltiazem Hcl Cd 180 Mg Cap.Er.24h) 360 mg PO DAILY [facility]; Protocol Last Admin: 08/02/22 08:34 Dose: 360 mg Documented By: OLGA Ergocalciferol (Ergocalciferol (Vitamin D2) 1,250 Mcg Capsule) 1,250 mcg PO Q7D [facility] Last Admin: 07/29/22 12:09 Dose: 1,250 mcg Documented By: LOYD Gabapentin (Gabapentin 300 Mg Capsule) 300 mg PO BID [facility] Last Admin: 08/02/22 08:33 Dose: 300 mg Documented By: OLGA Glucose (Glucose Gel 15 Gm Gel..Gram.) 15 gm PO Q15M PRN; Protocol PRN Reason: per Hypoglycemia Standing Ord. Glucose (Glucose Gel 15 Gm Gel..Gram.) 15 gm PO Q15M PRN; Protocol PRN Reason: per Hypoglycemia Standing Ord. Heparin Sodium (Porcine) (Heparin Sodium,Porcine 5,000 Unit/Ml Vial) 5,000 unit SUBCUT Q12H [facility] Last Admin: 08/02/22 13:41 Dose: Not Given Documented By: OLGA Non-Admin Reason: pt pff unit at IR Hydralazine HCl (Hydralazine Hcl 25 Mg Tablet) 25 mg PO TID [facility]; Protocol Last Admin: 07/29/22 09:56 Dose: 25 mg Documented By: LOYD Dextrose (D10) 250 mls @ 750 mls/hr IV Q15M PRN; Protocol PRN Reason: per Hypoglycemia Standing Ord. Dextrose (D10) 250 mls @ 750 mls/hr IV Q15M PRN; Protocol PRN Reason: per Hypoglycemia Standing Ord. Ceftriaxone Sodium 2 gm/ (Sodium Chloride) 50 mls @ 100 mls/hr IV Q24H [facility] Last Infusion: 08/02/22 08:31 Dose: 0 mls/hr Documented By: OLGA Insulin Glargine (Insulin Glargine,Hum.Rec.Anlog 100 Unit/Ml 10 Ml Vial) 35 unit SUBCUT BEDTIME [facility] Last Admin: 08/01/22 20:54 Dose: 35 unit Documented By: ANTONINA Insulin Human Lispro (Insulin Lispro 100 Unit/Ml 3 Ml Vial) 0 unit SUBCUT QIDACHS [facility]; Protocol Last Admin: 08/02/22 11:31 Dose: Not Given Documented By: OLGA Non-Admin Reason: No Insulin Coverage Lamotrigine (Lamotrigine 25 Mg Tablet) 150 mg PO BID [facility] Last Admin: 08/02/22 08:33 Dose: 150 mg Documented By: OLGA Levalbuterol HCl (Levalbuterol Hcl 1.25 Mg/3 Ml Vial.Neb) 1.25 mg INHALE RQ4H WHILE AWAKE [facility] Last Admin: 08/02/22 15:24 Dose: Not Given Documented By: WILLIAM Non-Admin Reason: Off Unit: Surgery Lidocaine (Lidocaine 4 % Patch Adh..Patch) 1 patch TRANSDERMA DAILY [facility] Last Admin: 08/02/22 08:33 Dose: 1 patch Documented By: OLGA Lisinopril (Lisinopril 40 Mg Tablet) 40 mg PO DAILY [facility]; Protocol Last Admin: 07/29/22 09:56 Dose: 40 mg Documented By: LOYD Loperamide HCl (Loperamide Hcl 2 Mg Capsule) 4 mg PO Q4H PRN PRN Reason: diarrhea Last Admin: 08/01/22 16:49 Dose: 4 mg Documented By: OLGA Loratadine (Loratadine 10 Mg Tablet) 10 mg PO DAILY [facility] Last Admin: 08/02/22 08:34 Dose: 10 mg Documented By: OLGA Methadone HCl (Methadone Hcl 20 Mg/2 Ml Oral.Conc) 50 mg PO DAILY [facility] Last Admin: 08/02/22 10:18 Dose: 50 mg Documented By: OLGA Methylprednisolone Sodium Succinate (Methylprednisolone Sod Succ 40 Mg/Ml Vial) 40 mg IVPUSH DAILY [facility] Last Admin: 08/02/22 10:49 Dose: Not Given Documented By: OLGA Non-Admin Reason: No Access Montelukast Sodium (Montelukast Sodium 10 Mg Tablet) 10 mg PO BEDTIME [facility] Last Admin: 08/01/22 20:53 Dose: 10 mg Documented By: ANTONINA Non-Formulary Medication (Roflumilast [Daliresp]) 500 mcg PO DAILY [facility] Omeprazole (Omeprazole 40 Mg Capsule.Dr) 40 mg PO BID@0630,1630 [facility] Last Admin: 08/02/22 05:32 Dose: 40 mg Documented By: ANTONINA Ondansetron HCl (Ondansetron Hcl 4 Mg/2 Ml Vial) 4 mg IVPUSH Q8H PRN PRN Reason: Nausea and Vomiting Last Admin: 07/29/22 17:10 Dose: 4 mg Documented By: NAYE Pharmacy Consult (Consult Rx Perform Med Rec) 1 each MISCELLANE ONCE PRN PRN Reason: Consult order Potassium Chloride (Potassium Chloride Er 20 Meq Tab.Er.Prt) 40 meq PO BID [facility] Last Admin: 08/02/22 10:23 Dose: 40 meq Documented By: OLGA Simethicone (Simethicone 80 Mg Tab.Chew) 80 mg PO QIDWMHS PRN PRN Reason: Abdominal Distention Sodium Chloride (0.9 % Sodium Chloride Flush 3 Ml Syringe) 3 ml IVFLUSH QSHIFT [facility] Last Admin: 08/02/22 07:45 Dose: 3 ml Documented By: OLGA Theophylline (Theophylline Anhydrous Er 400 Mg Tab.Er.24h) 400 mg PO Q12H [facility] Last Admin: 08/02/22 08:34 Dose: 400 mg Documented By: OLGA Tiotropium [place] (Tiotropium [place] 18 Mcg Cap.W.Dev) 1 puff INHALE DAILY [facility] Last Admin: 08/02/22 07:42 Dose: 1 puff Documented By: WILLIAM Labs 08/01/22 06:50 08/02/22 08:00 Labs: Laboratory Results - last 24 hr 08/01/22 08/01/22 08/02/22 16:04 20:20 06:35 VBG pH 7.53 H VBG pCO2 44 VBG pO2 108 VBG HCO3 36 H VBG O2 Saturation 99.0 VBG Base Excess 12.8 Anion Gap Estim Creat Clear Calc Estimated GFR POC Glucose 163 H 133 H Random Glucose Calcium 08/02/22 08/02/22 08/02/22 07:37 08:00 11:12 VBG pH VBG pCO2 VBG pO2 VBG HCO3 VBG O2 Saturation VBG Base Excess Anion Gap 15 Estim Creat Clear Calc 81.5 Estimated GFR > 60 POC Glucose 91 112 Random Glucose 81 Calcium 9.7 D Assessment and Plan (1) Bacteremia: Status: Acute (2) Salmonella gastroenteritis: Status: Acute Plan This is 51yo F with morbid obesity, asthma/COPD overlap, obesity hypoventilation, chronic hypoxic/hypercapneic resp failure on 2L of O2 + nocturnal BiPAP, hypogammaglobulinemia on IVIg, opioid dependence on methadone, DM2, HTN presented with nausea/vomiting/diarrhea, found to be hypotensive admitted for respiratory failure and VERONIKA found to have Salmonella bacteremia VERONIKA resolved with IVF likely prerenal or septic ATN [FENa was 1.5%] though serologic workup + urine eos pending. hold lisinopril Nephrology following continue to monitor renal function Salmonella bacteremia ceftriaxone started 07/29 Cultures sent to state lab for typing/speciation, but susceptible to ampicillin, ceftriaxone, levofloxacin, and TMP-SMX; resistant to cefazolin and gentamicin. diarrhea also PCR+ for Salmonella spp. US suggested distended GB without stones but HIDA negative for acalculous cholecystitis. surgery following, no indication for acute surgical intervention at this time ID following- plan continue IV ceftriaxone, transition to po ceftin on d/c. total 14 days antibiotics Hypernatremia r/t NS s/p D5W, down to 147 encourage po intake follow BMP hypokalemia k 3.1, will replace and follow hypotension lactic acidosis, resolved fluid-responsive. bp improved note on chronic steroids [prednisone 20 mg/d]. now on IV methylprednisolone. hold antihypertensives as below. acute/chronic hypoxic/hyppercanpeic respiratory failure - nocturnal BiPAP, daily VBG PCO2 stable asthma/COPD exacerbation - IV steroids- start to taper, nebulized bronchoildators - continue theophylline, roflumilast, tiotropium metabolic encephalopathy -resolved after BiPAP support Tn-I elevation - likely demand, decreased on repeat and no EKG changes DM2 - correction-dose lispro HTN antihypertensives held (lisinopril, hydralazine) due to hypotension bp improving, will result diltiazem in light of tachycardia monitor BP closely and resume others as bp tolerates mood disorder - bupropion, lamotrigine, clonazepam opioid dependence - methadone 50 mg/d home dose Morbid obesity BMI 39.9 weight loss encouraged VTE ppx: UFH dispo: seen by PT - rec STR attending - dr. Jones In my clinical judgment, the patient requires continued inpatient hospitalization for the following reasons: resp failure, IV ABX Time Spent With Patient Time: Total time managing care of this patient today ____ minutes. Quality Stroke Does the patient have a stroke diagnosis?: No VTE Prior VTE?: No VTE Risk Level:: Medical - moderate - high VTE Device Contraindication: Treatment Not Indicated VTE Drug Contraindication: N/A - Med Ordered
--- NOTE | 2022-08-02 16:10 | HO.MIDLINE_ITS ---
Midline Insertion MIDLINE INSERTION Indication: IV access needed Pertinent Labs: reviewed Technique: Using sterile technique including cap and mask, glove and drape, the right arm was prepped and draped in the usual sterile fashion of full barrier technique with CHG. Using ultrasound guidance, right brachial vein access was obtained after multiple attempts. A 20G X 8CM non-PASV ST midline was positioned. The procedure was performed in [S272]. Ultrasound was used to document vein patency and for needle entry. A formal ultrasound picture was recorded. [employer] Professor has released the line for use and it is currently dressed with a StatLock, Tegaderm, and CHG disc. Verification has been performed for blood return and line patency. Ginger REDDY and Dr Oneill agreed that we had to place midline despite positive blood cultures due to inability to place peripheral IV using ultrasound guidance. Arm Circumference: 30 CM Equipment: BARD PowerGlide ST Midline Catheter Catheter Type: 20G X 8CM Non-PASV ST Midline Lot #: [id number]
[2022-08-02] MEDS: Acetaminophen 325 MG TABLET 650 MG PO (16:20)
--- NOTE | 2022-08-02 16:22 | PC.NURSE ---
pt back on unit from IR around 16:00 - midline placed right upper arm. site asymptomatic. pt A&O, vitals within normal limits, complains of 3/10 abd. pain - tylenol given. pt able to make needs know. call lu within reach, resting comfortably.
[2022-08-02 16:28] LABS: Glucose, Whole Blood 108 mg/dL (60-115)
--- NOTE | 2022-08-02 18:15 | PC.NURSE ---
18:11 jimenez pulled per order, pt tolerated well. DTV @12:11
[2022-08-02 20:11] LABS: Glucose, Whole Blood 79 mg/dL (60-115)
[2022-08-02] MEDS: Montelukast Sodium 10 MG TABLET PO (20:45)
[2022-08-02] MEDS: Heparin Sodium,Porcine Flush 50 UNITS, 0.9 % Sodium Chloride Flush 5 ML IVFLUSH (20:51)
[2022-08-02 21:58] LABS: Glucose, Whole Blood 87 mg/dL (60-115)
[2022-08-02] MEDS: Glucose Gel 15 GM GEL..GRAM. PO (22:06)
[2022-08-02 22:19] LABS: Prot Elec - Albumin 2.6 g/dL (3.8-4.8); Prot Elec - Alpha1 0.7 g/dL (0.2-0.3); Prot Elec - Alpha2 1.5 g/dL (0.5-0.9); Prot Elec - Beta 1 0.3 g/dL (0.4-0.6); Prot Elec - Beta 2 0.3 g/dL (0.2-0.5); Prot Elec - Gamma 0.5 g/dL (0.8-1.7); Prot Elec - Total Protein 5.8 g/dL (6.1-8.1)
[2022-08-02 22:48] LABS: Glucose, Whole Blood 125 mg/dL (60-115)
[2022-08-03] VITALS (14 sets, daily range): BP systolic 141–158; BP diastolic 68–87; PULSE 97–123; RESP 18–24; TEMP 36.3–37.7; O2SAT 93–98; BMI 36.9
[2022-08-03 02:38] LABS: Complement C3 138 mg/dL (83-193)
--- NOTE | 2022-08-03 02:55 | PC.NURSE ---
Pt glucose was 79, MD Vega notified and instructed to hold lantus and sc insulin. Snacks given, BG rechecked and was 87. notified and instructed to give glucose gel. Med given. BG rechecked and was 125.
[2022-08-03] MEDS: Omeprazole 40 MG CAPSULE.DR PO ×2 (05:14→17:14)
[2022-08-03] MEDS: Acetaminophen 325 MG TABLET 650 MG PO (06:43)
--- NOTE | 2022-08-03 06:44 | PC.NURSE ---
Pts heart rate is now staying at 120. She previously had been running around 113, 115 but then her BIPAP had accidentally came off. Since then she's been recovering and heart rate has been 120. She is now back to 3L n/c. notified and instructed to check rectal temp. Temp was 99.9. PRN tylenol given.
[2022-08-03 07:51] LABS: Glucose, Whole Blood 111 mg/dL (60-115)
[2022-08-03 08:11] LABS: VBG Base Excess 14.7 mmol/L; VBG HCO3 38 mmol/L (22-26); VBG pCO2 42 mmHg; VBG pH 7.56 (7.32-7.43); VBG pO2 96 mmHg
[2022-08-03 08:13] LABS: Venous Blood Gas Refer to POC result
[2022-08-03 08:54] LABS: Anion Gap 10 (12-20); Blood Urea Nitrogen 21 mg/dL (9-16); Calcium 9.6 mg/dL (8.4-10.2); Carbon Dioxide 36 mmol/L (22-29); Chloride 104 mmol/L (96-108); Estimated Glomerular Filt Rate > 60; Glucose Random 108 mg/dL (60-115); Potassium 3.3 mmol/L (3.3-5.1); Sodium 147 mmol/L (135-145)
[2022-08-03 08:54] LABS: Anti Glomerular Basement Memb <1.0 AI; Myeloperoxidase Antibody <1.0 AI; Proteinase 3 PR3 Antibodies <1.0 AI
[2022-08-03 09:06] LABS: Magnesium 1.4 mg/dL (1.6-2.6)
[2022-08-03 09:13] LABS: TSH reflex Free T4 0.41 uIU/mL (0.32-4.0)
[2022-08-03] MEDS: methADONE HCl 20 MG/2 ML ORAL.CONC 50 MG PO (09:30)
[2022-08-03] MEDS: Lidocaine 4 % Patch ADH..PATCH 1 PATCH TRANSDERMA (09:30)
[2022-08-03] MEDS: Loratadine 10 MG TABLET PO (09:30)
[2022-08-03] MEDS: cefTRIAXone sodium 2 GM in 0.9 % Sodium Chloride 50 ML IV (09:31)
[2022-08-03] MEDS: methylPREDNISolone Sod Succ 40 MG/ML VIAL IVPUSH (09:31)
[2022-08-03] MEDS: Atorvastatin Calcium 20 MG TABLET PO (09:31)
[2022-08-03] MEDS: Heparin Sodium,Porcine Flush 50 UNITS, 0.9 % Sodium Chloride Flush 5 ML IVFLUSH (09:31)
[2022-08-03] MEDS: buPROPion HCL 100 MG TABLET PO (09:32)
[2022-08-03] MEDS: lamoTRIgine 25 MG TABLET 150 MG PO ×2 (09:32→20:56)
[2022-08-03] MEDS: Gabapentin 300 MG CAPSULE PO ×2 (09:32→20:56)
[2022-08-03] MEDS: dilTIAZem HCL CD 180 MG CAP.ER.24H 360 MG PO (09:32)
[2022-08-03] MEDS: Theophylline Anhydrous ER 400 MG TAB.ER.24H PO (09:32)
[2022-08-03] MEDS: Potassium Chloride ER 20 MEQ TAB.ER.PRT 40 MEQ PO ×2 (09:38→20:57)
[2022-08-03] MEDS: Magnesium Sulfate/H2O 2 GM/50 ML PIGGYBACK IV (10:25)
--- NOTE | 2022-08-03 10:31 | PC.NURSE ---
sitter and family at bedside assisting with care. pt confused, noncompliant at times.
--- NOTE | 2022-08-03 10:34 | PC.NURSE ---
translator/interpreter at bedside for assessment and med pass. informed of pt's mag, lytes replaced as ordered.
--- NOTE | 2022-08-03 10:49 | HO.PM.IMPN ---
Subjective Subjective Date of Service: 08/03/22 Interval History: seen and examined this morning follow up for salmonella bacteremia, gastoenteritits, renal failure denies sob, fever; feeling tired Review of Systems Review of Systems: Yes all other systems are reviewed and are negative Constitutional Constitutional: Denies chills and Denies fever(s) Physical Exam Vital Signs: Vital Signs: Last Vital Signs Temp 98.6 F 08/03/22 07:16 Pulse 123 H 08/03/22 07:16 Resp 20 08/03/22 07:16 BP 158/80 H 08/03/22 07:16 Pulse Ox 93 08/03/22 07:16 O2 Del Method Nasal Cannula 08/03/22 07:16 O2 Flow Rate 3 08/03/22 07:16 FiO2 22 08/03/22 00:00 Oxygen Flow Rate 2 07/28/22 16:28 BMI result Body Mass Index 36.9 Const: General: alert and awake Nutritional Appearance: obese Orientation/consciousness: patient oriented x3 Resp: Other: fine basilar rales Effort & Inspection: able to speak in complete sentences and no respiratory distress Cardio: Rate: tachycardic Heart sounds: S1 normal heart sound present and S2 normal heart sound present GI: Inspection: No distended Palpation (GI): Soft to palpation : Other: jimenez in place Neuro: Other: grossly nonfocal, able to move all extremities General: patient oriented x3 and moves all extremities Extrem: Other: upper extremities some edema, b/l lower extremities trace edema General: Yes no pedal edema Objective Data Active Medications Acetaminophen (Acetaminophen 325 Mg Tablet) 650 mg PO Q6H PRN PRN Reason: Pain, Mild (Pain Scale 1-3) Last Admin: 08/03/22 06:43 Dose: 650 mg Documented By: CLYDE Al Hydroxide/Mg Hydroxide (Magnesium Hydrox/Alum Hydrox 30 Ml Oral.Susp) 30 ml PO Q4H PRN PRN Reason: heartburn Last Admin: 07/29/22 17:55 Dose: 30 ml Documented By: NAYE Albuterol/Ipratropium (Albuterol/Iprat 2.5/0.5mg 3 Ml Ampul.Neb) 3 ml INHALE RQ4H PRN PRN Reason: Shortness of Breath/Wheezing Atorvastatin Calcium (Atorvastatin Calcium 20 Mg Tablet) 20 mg PO DAILY [facility] Last Admin: 08/03/22 09:31 Dose: 20 mg Documented By: KATIUSKA Bupropion HCl (Bupropion Hcl 100 Mg Tablet) 100 mg PO DAILY [facility] Last Admin: 08/03/22 09:32 Dose: 100 mg Documented By: KATIUSKA Clonazepam (Clonazepam 1 Mg Tablet) 1 mg PO BID PRN PRN Reason: Anxiety Last Admin: 07/31/22 12:43 Dose: 1 mg Documented By: CHANI Heparin Sodium (Porcine) 50 (units/ Sodium Chloride 5 ml) 0 units IVFLUSH TID [facility] Last Admin: 08/03/22 09:31 Dose: 50 unit Documented By: KATIUSKA Diltiazem HCl (Diltiazem Hcl Cd 180 Mg Cap.Er.24h) 360 mg PO DAILY [facility]; Protocol Last Admin: 08/03/22 09:32 Dose: 360 mg Documented By: KATIUSKA Ergocalciferol (Ergocalciferol (Vitamin D2) 1,250 Mcg Capsule) 1,250 mcg PO Q7D [facility] Last Admin: 07/29/22 12:09 Dose: 1,250 mcg Documented By: LOYD Gabapentin (Gabapentin 300 Mg Capsule) 300 mg PO BID [facility] Last Admin: 08/03/22 09:32 Dose: 300 mg Documented By: KATIUSKA Glucose (Glucose Gel 15 Gm Gel..Gram.) 15 gm PO Q15M PRN; Protocol PRN Reason: per Hypoglycemia Standing Ord. Last Admin: 08/02/22 22:06 Dose: 15 gm Documented By: CLYDE Comments: instructed to give per MD Vega. BG 87 Glucose (Glucose Gel 15 Gm Gel..Gram.) 15 gm PO Q15M PRN; Protocol PRN Reason: per Hypoglycemia Standing Ord. Heparin Sodium (Porcine) (Heparin Sodium,Porcine 5,000 Unit/Ml Vial) 5,000 unit SUBCUT Q12H [facility] Last Admin: 08/02/22 22:06 Dose: 5,000 unit Documented By: CLYDE Hydralazine HCl (Hydralazine Hcl 25 Mg Tablet) 25 mg PO TID [facility]; Protocol Last Admin: 07/29/22 09:56 Dose: 25 mg Documented By: LOYD Dextrose (D10) 250 mls @ 750 mls/hr IV Q15M PRN; Protocol PRN Reason: per Hypoglycemia Standing Ord. Dextrose (D10) 250 mls @ 750 mls/hr IV Q15M PRN; Protocol PRN Reason: per Hypoglycemia Standing Ord. Ceftriaxone Sodium 2 gm/ (Sodium Chloride) 50 mls @ 100 mls/hr IV Q24H [facility] Last Infusion: 08/03/22 10:02 Dose: 0 mls/hr Documented By: KATIUSKA Magnesium Sulfate (Magnesium Sulfate/H2o) 2 gm in 50 mls @ 25 mls/hr IV ONCE ONE Stop: 08/03/22 11:08 Last Admin: 08/03/22 10:25 Dose: 25 mls/hr Documented By: KATIUSKA Insulin Glargine (Insulin Glargine,Hum.Rec.Anlog 100 Unit/Ml 10 Ml Vial) 35 unit SUBCUT BEDTIME [facility] Last Admin: 08/02/22 20:46 Dose: Not Given Documented By: CLYDE Non-Admin Reason: Physician Approved Insulin Human Lispro (Insulin Lispro 100 Unit/Ml 3 Ml Vial) 0 unit SUBCUT QIDACHS [facility]; Protocol Last Admin: 08/03/22 07:42 Dose: Not Given Documented By: KATIUSKA Non-Admin Reason: See Note Lamotrigine (Lamotrigine 25 Mg Tablet) 150 mg PO BID [facility] Last Admin: 08/03/22 09:32 Dose: 150 mg Documented By: KATIUSKA Levalbuterol HCl (Levalbuterol Hcl 1.25 Mg/3 Ml Vial.Neb) 1.25 mg INHALE RQ4H WHILE AWAKE [facility] Last Admin: 08/03/22 08:31 Dose: Not Given Documented By: RAHEL Non-Admin Reason: Elevated Heart Rate Lidocaine (Lidocaine 4 % Patch Adh..Patch) 1 patch TRANSDERMA DAILY [facility] Last Admin: 08/03/22 09:30 Dose: 1 patch Documented By: KATIUSKA Lisinopril (Lisinopril 40 Mg Tablet) 40 mg PO DAILY [facility]; Protocol Last Admin: 07/29/22 09:56 Dose: 40 mg Documented By: BROFilipe Loperamide HCl (Loperamide Hcl 2 Mg Capsule) 4 mg PO Q4H PRN PRN Reason: diarrhea Last Admin: 08/01/22 16:49 Dose: 4 mg Documented By: OLGA Loratadine (Loratadine 10 Mg Tablet) 10 mg PO DAILY [facility] Last Admin: 08/03/22 09:30 Dose: 10 mg Documented By: KATIUSKA Methadone HCl (Methadone Hcl 20 Mg/2 Ml Oral.Conc) 50 mg PO DAILY [facility] Last Admin: 08/03/22 09:30 Dose: 50 mg Documented By: KATIUSKA Methylprednisolone Sodium Succinate (Methylprednisolone Sod Succ 40 Mg/Ml Vial) 40 mg IVPUSH DAILY [facility] Last Admin: 08/03/22 09:31 Dose: 40 mg Documented By: KATIUSKA Montelukast Sodium (Montelukast Sodium 10 Mg Tablet) 10 mg PO BEDTIME [facility] Last Admin: 08/02/22 20:45 Dose: 10 mg Documented By: CLYDE Non-Formulary Medication (Roflumilast [Daliresp]) 500 mcg PO DAILY [facility] Omeprazole (Omeprazole 40 Mg Capsule.Dr) 40 mg PO BID@0630,1630 [facility] Last Admin: 08/03/22 05:14 Dose: 40 mg Documented By: CYLDE Ondansetron HCl (Ondansetron Hcl 4 Mg/2 Ml Vial) 4 mg IVPUSH Q8H PRN PRN Reason: Nausea and Vomiting Last Admin: 07/29/22 17:10 Dose: 4 mg Documented By: NAYE Pharmacy Consult (Consult Rx Perform Med Rec) 1 each MISCELLANE ONCE PRN PRN Reason: Consult order Potassium Chloride (Potassium Chloride Er 20 Meq Tab.Er.Prt) 40 meq PO BID [facility] Stop: 08/03/22 21:01 Last Admin: 08/03/22 09:38 Dose: 40 meq Documented By: KATIUSKA Simethicone (Simethicone 80 Mg Tab.Chew) 80 mg PO QIDWMHS PRN PRN Reason: Abdominal Distention Sodium Chloride (0.9 % Sodium Chloride Flush 3 Ml Syringe) 3 ml IVFLUSH QSHIFT [facility] Last Admin: 08/03/22 07:19 Dose: Not Given Documented By: KATIUSKA Non-Admin Reason: See Note Theophylline (Theophylline Anhydrous Er 300 Mg Tab.Er.12h) 300 mg PO Q12H [facility] Tiotropium [place] (Tiotropium [place] 18 Mcg Cap.W.Dev) 1 puff INHALE DAILY [facility] Last Admin: 08/03/22 08:32 Dose: Not Given Documented By: RAHEL Non-Admin Reason: Elevated Heart Rate Labs 08/01/22 06:50 08/03/22 08:02 Labs: Laboratory Results - last 24 hr 07/31/22 08/02/22 08/02/22 06:47 11:12 16:25 VBG pH VBG pCO2 VBG pO2 VBG HCO3 VBG O2 Saturation VBG Base Excess Anion Gap Estim Creat Clear Calc Estimated GFR POC Glucose 112 108 Random Glucose Calcium Magnesium Total Protein (PEP) 5.8 L Albumin (PEP) 2.6 L Ihayg-0-Zmufvhvwy 0.7 H Ywnzq-3-Hoblorvbv 1.5 H Ygpw-3-Sjecauby 0.3 L Vsaw-4-Shyblefa 0.3 Gamma Globulins 0.5 L PEP Interpretation SEE NOTE TSH Proteinase 3 (PR3) Ab <1.0 Myeloperoxidase Ab <1.0 Glomerular Base Memb Ab <1.0 Complement C3 138 Complement C4 33 08/02/22 08/02/22 08/02/22 20:04 21:56 22:44 VBG pH VBG pCO2 VBG pO2 VBG HCO3 VBG O2 Saturation VBG Base Excess Anion Gap Estim Creat Clear Calc Estimated GFR POC Glucose 79 87 125 H Random Glucose Calcium Magnesium Total Protein (PEP) Albumin (PEP) Uvyxv-7-Bkbekzokw Xrxfd-5-Nccaknzwt Gepc-4-Nwdnxhda Vexr-7-Soykpbjj Gamma Globulins PEP Interpretation TSH Proteinase 3 (PR3) Ab Myeloperoxidase Ab Glomerular Base Memb Ab Complement C3 Complement C4 08/03/22 08/03/22 08/03/22 07:18 08:02 08:02 VBG pH VBG pCO2 VBG pO2 VBG HCO3 VBG O2 Saturation VBG Base Excess Anion Gap 10 L Estim Creat Clear Calc 93.0 Estimated GFR > 60 POC Glucose 111 Random Glucose 108 Calcium 9.6 Magnesium 1.4 L* Total Protein (PEP) Albumin (PEP) Afouv-7-Wgusnusuo Zwprq-6-Ucmmzyukt Ldir-4-Ckvjeckg Arxo-4-Qlwttvek Gamma Globulins PEP Interpretation TSH 0.41 Proteinase 3 (PR3) Ab Myeloperoxidase Ab Glomerular Base Memb Ab Complement C3 Complement C4 05/20/23 08:04 VBG pH 7.56 H VBG pCO2 42 VBG pO2 96 VBG HCO3 38 H VBG O2 Saturation 99.0 VBG Base Excess 14.7 Anion Gap Estim Creat Clear Calc Estimated GFR POC Glucose Random Glucose Calcium Magnesium Total Protein (PEP) Albumin (PEP) Xrakl-2-Xyjpzmjrl Pcwre-7-Zutakqbpl Qsab-6-Ytzvhmln Edin-9-Ikrwjmne Gamma Globulins PEP Interpretation TSH Proteinase 3 (PR3) Ab Myeloperoxidase Ab Glomerular Base Memb Ab Complement C3 Complement C4 Assessment and Plan (1) Bacteremia: Status: Acute (2) Salmonella gastroenteritis: Status: Acute (3) Acute and chronic respiratory failure with hypercapnia: Status: Acute Plan This is 51yo F with morbid obesity, asthma/COPD overlap, obesity hypoventilation, chronic hypoxic/hypercapneic resp failure on 2L of O2 + nocturnal BiPAP, hypogammaglobulinemia on IVIg, opioid dependence on methadone, DM2, HTN presented with nausea/vomiting/diarrhea, found to be hypotensive admitted for respiratory failure and VERONIKA found to have Salmonella bacteremia VERONIKA resolved with IVF likely prerenal or septic ATN [FENa was 1.5%] though serologic workup + urine eos pending. lisinopril on hold Nephrology following continue to monitor renal function Salmonella bacteremia ceftriaxone started 07/29 Cultures sent to state lab for typing/speciation, but susceptible to ampicillin, ceftriaxone, levofloxacin, and TMP-SMX; resistant to cefazolin and gentamicin. diarrhea also PCR+ for Salmonella spp. US suggested distended GB without stones but HIDA negative for acalculous cholecystitis, suggestive of dyskinesia. surgery following, no indication for acute surgical intervention at this time ID following- plan continue IV ceftriaxone, transition to po ceftin on d/c. total 14 days antibiotics Hypernatremia sodiium 147 encourage po intake will give gentle IVF follow BMP sinus tachycardia H/H stable, afebrile, tsh wnl resumed cardizem will given genltle IVF reduce dose of theophylline appears someone chronic hypokalemia/hypomagnesemia likely r/t GI loss replace and follow hypotension lactic acidosis, resolved fluid-responsive. bp improved note on chronic steroids [prednisone 20 mg/d]. now on IV methylprednisolone acute/chronic hypoxic/hyppercanpeic respiratory failure - nocturnal BiPAP, daily VBG PCO2 stable asthma/COPD exacerbation - IV steroids- start to taper, nebulized bronchoildators - continue theophylline (will decrease dose to 300 bid given tachycardia), roflumilast, tiotropium metabolic encephalopathy -resolved after BiPAP support Tn-I elevation - likely demand, decreased on repeat and no EKG changes DM2 - correction-dose lispro HTN antihypertensives held (lisinopril, hydralazine) due to hypotension bp improving, will result diltiazem in light of tachycardia monitor BP closely and resume others as bp tolerates mood disorder - bupropion, lamotrigine, clonazepam opioid dependence - methadone 50 mg/d home dose Morbid obesity BMI 39.9 weight loss encouraged VTE ppx: UFH dispo: seen by PT - rec STR attending - dr. Bond In my clinical judgment, the patient requires continued inpatient hospitalization for the following reasons: resp failure, IV ABX Time Spent With Patient Time: Total time managing care of this patient today ____ minutes. Quality Stroke Does the patient have a stroke diagnosis?: No VTE Prior VTE?: No VTE Risk Level:: Medical - moderate - high VTE Device Contraindication: Treatment Not Indicated VTE Drug Contraindication: N/A - Med Ordered
[2022-08-03 11:07] LABS: Glucose, Whole Blood 150 mg/dL (60-115)
--- NOTE | 2022-08-03 11:13 | PM.PNGS ---
Subjective Subjective Date of Service: 08/03/22 Interval history: as per nursing staff - no events overnight patient still drowsy some episodic diffuse abdominal pain Physical Exam Vital Signs: Vital Signs: Last Vital Signs Temp 98.6 F 08/03/22 07:16 Pulse 123 H 08/03/22 07:16 Resp 20 08/03/22 07:16 BP 158/80 H 08/03/22 07:16 Pulse Ox 93 08/03/22 07:16 O2 Del Method Nasal Cannula 08/03/22 07:16 O2 Flow Rate 3 08/03/22 07:16 FiO2 22 08/03/22 00:00 Oxygen Flow Rate 2 07/28/22 16:28 BMI result Body Mass Index 36.9 Const: Other: short of breath using BiPAP, morbidly obese Resp: Other: short of breath Cardio: Rhythm: regular rhythm GI: Other: obese, soft, no guarding or rebound Objective Data Active Medications Acetaminophen (Acetaminophen 325 Mg Tablet) 650 mg PO Q6H PRN PRN Reason: Pain, Mild (Pain Scale 1-3) Last Admin: 08/03/22 06:43 Dose: 650 mg Documented By: CLYDE Al Hydroxide/Mg Hydroxide (Magnesium Hydrox/Alum Hydrox 30 Ml Oral.Susp) 30 ml PO Q4H PRN PRN Reason: heartburn Last Admin: 07/29/22 17:55 Dose: 30 ml Documented By: NAYE Albuterol/Ipratropium (Albuterol/Iprat 2.5/0.5mg 3 Ml Ampul.Neb) 3 ml INHALE RQ4H PRN PRN Reason: Shortness of Breath/Wheezing Atorvastatin Calcium (Atorvastatin Calcium 20 Mg Tablet) 20 mg PO DAILY [facility] Last Admin: 08/03/22 09:31 Dose: 20 mg Documented By: KATIUSKA Bupropion HCl (Bupropion Hcl 100 Mg Tablet) 100 mg PO DAILY [facility] Last Admin: 08/03/22 09:32 Dose: 100 mg Documented By: KATIUSKA Clonazepam (Clonazepam 1 Mg Tablet) 1 mg PO BID PRN PRN Reason: Anxiety Last Admin: 07/31/22 12:43 Dose: 1 mg Documented By: FOSTEKChristie Heparin Sodium (Porcine) 50 (units/ Sodium Chloride 5 ml) 0 units IVFLUSH TID [facility] Last Admin: 08/03/22 09:31 Dose: 50 unit Documented By: KATIUSKA Diltiazem HCl (Diltiazem Hcl Cd 180 Mg Cap.Er.24h) 360 mg PO DAILY [facility]; Protocol Last Admin: 08/03/22 09:32 Dose: 360 mg Documented By: KATIUSKA Ergocalciferol (Ergocalciferol (Vitamin D2) 1,250 Mcg Capsule) 1,250 mcg PO Q7D [facility] Last Admin: 07/29/22 12:09 Dose: 1,250 mcg Documented By: LOYD Gabapentin (Gabapentin 300 Mg Capsule) 300 mg PO BID [facility] Last Admin: 08/03/22 09:32 Dose: 300 mg Documented By: KATIUSKA Glucose (Glucose Gel 15 Gm Gel..Gram.) 15 gm PO Q15M PRN; Protocol PRN Reason: per Hypoglycemia Standing Ord. Last Admin: 08/02/22 22:06 Dose: 15 gm Documented By: CLYDE Comments: instructed to give per MD Vega. BG 87 Glucose (Glucose Gel 15 Gm Gel..Gram.) 15 gm PO Q15M PRN; Protocol PRN Reason: per Hypoglycemia Standing Ord. Heparin Sodium (Porcine) (Heparin Sodium,Porcine 5,000 Unit/Ml Vial) 5,000 unit SUBCUT Q12H [facility] Last Admin: 08/02/22 22:06 Dose: 5,000 unit Documented By: CLYDE Hydralazine HCl (Hydralazine Hcl 25 Mg Tablet) 25 mg PO TID [facility]; Protocol Last Admin: 07/29/22 09:56 Dose: 25 mg Documented By: LOYD Dextrose (D10) 250 mls @ 750 mls/hr IV Q15M PRN; Protocol PRN Reason: per Hypoglycemia Standing Ord. Dextrose (D10) 250 mls @ 750 mls/hr IV Q15M PRN; Protocol PRN Reason: per Hypoglycemia Standing Ord. Ceftriaxone Sodium 2 gm/ (Sodium Chloride) 50 mls @ 100 mls/hr IV Q24H [facility] Last Infusion: 08/03/22 10:02 Dose: 0 mls/hr Documented By: KATIUSKA Dextrose (D5w) 1,000 mls @ 80 mls/hr IVCONT .[id number] [facility] Stop: 08/03/22 23:29 Insulin Glargine (Insulin Glargine,Hum.Rec.Anlog 100 Unit/Ml 10 Ml Vial) 35 unit SUBCUT BEDTIME [facility] Last Admin: 08/02/22 20:46 Dose: Not Given Documented By: CLYDE Non-Admin Reason: Physician Approved Insulin Human Lispro (Insulin Lispro 100 Unit/Ml 3 Ml Vial) 0 unit SUBCUT QIDACHS [facility]; Protocol Last Admin: 08/03/22 11:08 Dose: Not Given Documented By: KATIUSKA Non-Admin Reason: See Note Lamotrigine (Lamotrigine 25 Mg Tablet) 150 mg PO BID [facility] Last Admin: 08/03/22 09:32 Dose: 150 mg Documented By: KATIUSKA Levalbuterol HCl (Levalbuterol Hcl 1.25 Mg/3 Ml Vial.Neb) 1.25 mg INHALE RQ4H WHILE AWAKE [facility] Last Admin: 08/03/22 08:31 Dose: Not Given Documented By: RAHEL Non-Admin Reason: Elevated Heart Rate Lidocaine (Lidocaine 4 % Patch Adh..Patch) 1 patch TRANSDERMA DAILY [facility] Last Admin: 08/03/22 09:30 Dose: 1 patch Documented By: KATIUSKA Lisinopril (Lisinopril 40 Mg Tablet) 40 mg PO DAILY [facility]; Protocol Last Admin: 07/29/22 09:56 Dose: 40 mg Documented By: LOYD Loperamide HCl (Loperamide Hcl 2 Mg Capsule) 4 mg PO Q4H PRN PRN Reason: diarrhea Last Admin: 08/01/22 16:49 Dose: 4 mg Documented By: OLGA Loratadine (Loratadine 10 Mg Tablet) 10 mg PO DAILY [facility] Last Admin: 08/03/22 09:30 Dose: 10 mg Documented By: KATIUSKA Methadone HCl (Methadone Hcl 20 Mg/2 Ml Oral.Conc) 50 mg PO DAILY [facility] Last Admin: 08/03/22 09:30 Dose: 50 mg Documented By: KATIUSKA Methylprednisolone Sodium Succinate (Methylprednisolone Sod Succ 40 Mg/Ml Vial) 40 mg IVPUSH DAILY [facility] Last Admin: 08/03/22 09:31 Dose: 40 mg Documented By: KATIUSKA Montelukast Sodium (Montelukast Sodium 10 Mg Tablet) 10 mg PO BEDTIME [facility] Last Admin: 08/02/22 20:45 Dose: 10 mg Documented By: CLYDE Non-Formulary Medication (Roflumilast [Daliresp]) 500 mcg PO DAILY [facility] Omeprazole (Omeprazole 40 Mg Capsule.) 40 mg PO BID@0630,1630 [facility] Last Admin: 08/03/22 05:14 Dose: 40 mg Documented By: CLYDE Ondansetron HCl (Ondansetron Hcl 4 Mg/2 Ml Vial) 4 mg IVPUSH Q8H PRN PRN Reason: Nausea and Vomiting Last Admin: 07/29/22 17:10 Dose: 4 mg Documented By: NAYE Pharmacy Consult (Consult Rx Perform Med Rec) 1 each MISCELLANE ONCE PRN PRN Reason: Consult order Potassium Chloride (Potassium Chloride Er 20 Meq Tab.Er.Prt) 40 meq PO BID [facility] Stop: 08/03/22 21:01 Last Admin: 08/03/22 09:38 Dose: 40 meq Documented By: KATIUSKA Simethicone (Simethicone 80 Mg Tab.Chew) 80 mg PO QIDWMHS PRN PRN Reason: Abdominal Distention Sodium Chloride (0.9 % Sodium Chloride Flush 3 Ml Syringe) 3 ml IVFLUSH QSHIFT [facility] Last Admin: 08/03/22 07:19 Dose: Not Given Documented By: KATIUSKA Non-Admin Reason: See Note Theophylline (Theophylline Anhydrous Er 300 Mg Tab.Er.12h) 300 mg PO Q12H [facility] Tiotropium [place] (Tiotropium [place] 18 Mcg Cap.W.Dev) 1 puff INHALE DAILY [facility] Last Admin: 08/03/22 08:32 Dose: Not Given Documented By: RAHEL Non-Admin Reason: Elevated Heart Rate Labs 08/01/22 06:50 08/03/22 08:02 Labs: Laboratory Results - last 24 hr 07/31/22 08/02/22 08/02/22 06:47 11:12 16:25 VBG pH VBG pCO2 VBG pO2 VBG HCO3 VBG O2 Saturation VBG Base Excess Anion Gap Estim Creat Clear Calc Estimated GFR POC Glucose 112 108 Random Glucose Calcium Magnesium Total Protein (PEP) 5.8 L Albumin (PEP) 2.6 L Htabl-6-Picwedecw 0.7 H Nnhzq-9-Zimqbzieg 1.5 H Fnrw-3-Yfvjbiej 0.3 L Sbwp-0-Htmhtwct 0.3 Gamma Globulins 0.5 L PEP Interpretation SEE NOTE TSH Proteinase 3 (PR3) Ab <1.0 Myeloperoxidase Ab <1.0 Glomerular Base Memb Ab <1.0 Complement C3 138 Complement C4 33 08/02/22 08/02/22 08/02/22 20:04 21:56 22:44 VBG pH VBG pCO2 VBG pO2 VBG HCO3 VBG O2 Saturation VBG Base Excess Anion Gap Estim Creat Clear Calc Estimated GFR POC Glucose 79 87 125 H Random Glucose Calcium Magnesium Total Protein (PEP) Albumin (PEP) Oantx-8-Pltivqesc Cfuqi-2-Zoyqlvhzw Yfck-2-Birsyqwd Rmda-2-Rqtbnwvm Gamma Globulins PEP Interpretation TSH Proteinase 3 (PR3) Ab Myeloperoxidase Ab Glomerular Base Memb Ab Complement C3 Complement C4 08/03/22 08/03/22 08/03/22 07:18 08:02 08:02 VBG pH VBG pCO2 VBG pO2 VBG HCO3 VBG O2 Saturation VBG Base Excess Anion Gap 10 L Estim Creat Clear Calc 93.0 Estimated GFR > 60 POC Glucose 111 Random Glucose 108 Calcium 9.6 Magnesium 1.4 L* Total Protein (PEP) Albumin (PEP) Pxdkl-0-Qdwxptdbe Gteps-0-Hkfzpbtqu Jmbw-4-Npxwaaqn Nvoj-7-Popcojpf Gamma Globulins PEP Interpretation TSH 0.41 Proteinase 3 (PR3) Ab Myeloperoxidase Ab Glomerular Base Memb Ab Complement C3 Complement C4 08/03/22 08/03/22 08:04 10:54 VBG pH 7.56 H VBG pCO2 42 VBG pO2 96 VBG HCO3 38 H VBG O2 Saturation 99.0 VBG Base Excess 14.7 Anion Gap Estim Creat Clear Calc Estimated GFR POC Glucose 150 H Random Glucose Calcium Magnesium Total Protein (PEP) Albumin (PEP) Qwwvb-4-Xaiuegsqo Qsqiv-1-Iwkbczzew Hlaa-0-Ppqarqsj Esvu-9-Meuosvwr Gamma Globulins PEP Interpretation TSH Proteinase 3 (PR3) Ab Myeloperoxidase Ab Glomerular Base Memb Ab Complement C3 Complement C4 Procedures Date of Service Date of Service: 08/03/22 Progress Note: A&P Assessment and plan (1) Bacteremia: Status: Acute Assessment and Plan: no evidence of intra-abdominal infection or inflammation at this time HIDA scan suggestive of dyskinesia of the gallbladder no urgent surgical intervention necessary at this time patient with multiple comorbid conditions Time Spent With Patient Time: Total time managing care of this patient today ____ minutes. Quality Stroke Does the patient have a stroke diagnosis?: No VTE Prior VTE?: No VTE Risk Level:: Medical - moderate - high VTE Device Contraindication: Treatment Not Indicated VTE Drug Contraindication: N/A - Med Ordered
[2022-08-03] MEDS: Heparin Sodium,Porcine 5,000 UNIT/ML VIAL 5000 UNIT SUBCUT ×2 (11:14→23:57)
[2022-08-03] MEDS: Dextrose 5 % 1,000 ML 80 ML IVCONT (11:14)
[2022-08-03] MEDS: levalbuterol HCL 1.25 MG/3 ML VIAL.NEB INHALE ×3 (11:53→20:13)
[2022-08-03 16:08] LABS: Glucose, Whole Blood 372 mg/dL (60-115)
[2022-08-03] MEDS: Insulin Lispro 100 UNIT/ML 3 ML VIAL SUBCUT ×3 (17:14→20:57)
[2022-08-03] MEDS: 0.9 % Sodium Chloride Flush 3 ML SYRINGE IVFLUSH (17:15)
[2022-08-03 19:31] LABS: Glucose, Whole Blood 298 mg/dL (60-115)
[2022-08-03] MEDS: Montelukast Sodium 10 MG TABLET PO (20:56)
[2022-08-03] MEDS: Insulin Glargine,Hum.rec.anlog 100 UNIT/ML 10 ML VIAL 35 UNIT SUBCUT (20:57)
[2022-08-03] MEDS: Theophylline Anhydrous ER 300 MG TAB.ER.12H PO (20:58)
[2022-08-04] VITALS (10 sets, daily range): BP systolic 117–159; BP diastolic 56–88; PULSE 98–116; RESP 18–20; TEMP 36.1–37.3; O2SAT 91–99; BMI 37.4
[2022-08-04] MEDS: Omeprazole 40 MG CAPSULE.DR PO ×2 (05:48→16:08)
[2022-08-04 06:23] LABS: Venous Blood Gas Refer to POC result
[2022-08-04 06:26] LABS: VBG Base Excess 11.2 mmol/L; VBG HCO3 33 mmol/L (22-26); VBG pCO2 35 mmHg; VBG pH 7.58 (7.32-7.43); VBG pO2 76 mmHg
[2022-08-04 06:39] LABS: Hematocrit 36.4 % (37.0-47.0); Hemoglobin 11.5 g/dl (12.0-16.0); Mean Corpuscular HGB Conc 31.6 g/dl (31.0-35.0); Mean Corpuscular Hemoglobin 28.5 pg (27.0-33.0); Mean Corpuscular Volume 90.3 fL (80.0-98.0); Mean Platelet Volume 9.5 fL (9.4-12.3); Platelet Count 246 X10*3/uL (160-400); Red Blood Count 4.03 X10*6/uL (4.20-5.50); Red Cell Distribution Width 13.3 % (11.0-16.0); White Blood Count 22.8 X10*3/uL (4.8-10.8)
[2022-08-04 06:54] LABS: Anion Gap 13 (12-20); Blood Urea Nitrogen 18 mg/dL (9-16); Calcium 9.6 mg/dL (8.4-10.2); Carbon Dioxide 32 mmol/L (22-29); Chloride 102 mmol/L (96-108); Creatinine Clr Calc Pharmacy 99.7; Estimated Glomerular Filt Rate > 60; Glucose Random 130 mg/dL (60-115); Magnesium 1.6 mg/dL (1.6-2.6); Potassium 4.3 mmol/L (3.3-5.1); Sodium 143 mmol/L (135-145)
[2022-08-04 07:28] LABS: Glucose, Whole Blood 118 mg/dL (60-115)
[2022-08-04] MEDS: levalbuterol HCL 1.25 MG/3 ML VIAL.NEB INHALE ×3 (07:41→19:12)
[2022-08-04] MEDS: cefTRIAXone sodium 2 GM in 0.9 % Sodium Chloride 50 ML IV (09:00)
[2022-08-04] MEDS: lamoTRIgine 25 MG TABLET 150 MG PO ×2 (09:14→21:02)
[2022-08-04] MEDS: Gabapentin 300 MG CAPSULE PO ×2 (09:15→21:02)
[2022-08-04] MEDS: dilTIAZem HCL CD 180 MG CAP.ER.24H 360 MG PO (09:15)
[2022-08-04] MEDS: buPROPion HCL 100 MG TABLET PO (09:15)
[2022-08-04] MEDS: Loratadine 10 MG TABLET PO (09:15)
[2022-08-04] MEDS: Theophylline Anhydrous ER 300 MG TAB.ER.12H PO ×2 (09:16→21:02)
[2022-08-04] MEDS: methADONE HCl 20 MG/2 ML ORAL.CONC 50 MG PO (09:16)
[2022-08-04] MEDS: Atorvastatin Calcium 20 MG TABLET PO (09:16)
[2022-08-04] MEDS: methylPREDNISolone Sod Succ 40 MG/ML VIAL IVPUSH (09:21)
[2022-08-04] MEDS: Lidocaine 4 % Patch ADH..PATCH 1 PATCH TRANSDERMA (09:27)
[2022-08-04] MEDS: Heparin Sodium,Porcine Flush 50 UNITS, 0.9 % Sodium Chloride Flush 5 ML IVFLUSH ×3 (09:27→21:17)
[2022-08-04] MEDS: 0.9 % Sodium Chloride Flush 3 ML SYRINGE IVFLUSH ×4 (09:29→21:03)
--- NOTE | 2022-08-04 10:11 | PM.PNGS ---
Subjective Subjective Date of Service: 08/04/22 Interval history: no new events she complains of pain on the left lower rib area posteriorly denies abdominal pain at this time Physical Exam Vital Signs: Vital Signs: Last Vital Signs Temp 97.7 F 08/04/22 08:00 Pulse 108 H 08/04/22 08:00 Resp 20 08/04/22 08:00 BP 136/76 08/04/22 08:00 Pulse Ox 97 08/04/22 08:00 O2 Del Method Nasal Cannula 08/04/22 08:00 O2 Flow Rate 3 08/04/22 08:00 FiO2 28 08/04/22 03:31 Oxygen Flow Rate 2 07/28/22 16:28 BMI result Body Mass Index 37.4 Const: Other: still short of breath Resp: Other: short of breath Cardio: Rhythm: regular rhythm GI: Other: obese, soft, no guarding rebound Objective Data Active Medications Acetaminophen (Acetaminophen 325 Mg Tablet) 650 mg PO Q6H PRN PRN Reason: Pain, Mild (Pain Scale 1-3) Last Admin: 08/03/22 06:43 Dose: 650 mg Documented By: CLYDE Al Hydroxide/Mg Hydroxide (Magnesium Hydrox/Alum Hydrox 30 Ml Oral.Susp) 30 ml PO Q4H PRN PRN Reason: heartburn Last Admin: 07/29/22 17:55 Dose: 30 ml Documented By: NAYE Albuterol/Ipratropium (Albuterol/Iprat 2.5/0.5mg 3 Ml Ampul.Neb) 3 ml INHALE RQ4H PRN PRN Reason: Shortness of Breath/Wheezing Atorvastatin Calcium (Atorvastatin Calcium 20 Mg Tablet) 20 mg PO DAILY [facility] Last Admin: 08/04/22 09:16 Dose: 20 mg Documented By: MARYAM Bupropion HCl (Bupropion Hcl 100 Mg Tablet) 100 mg PO DAILY [facility] Last Admin: 08/04/22 09:15 Dose: 100 mg Documented By: MARYAM Clonazepam (Clonazepam 1 Mg Tablet) 1 mg PO BID PRN PRN Reason: Anxiety Last Admin: 07/31/22 12:43 Dose: 1 mg Documented By: CHANI Heparin Sodium (Porcine) 50 (units/ Sodium Chloride 5 ml) 0 units IVFLUSH TID [facility] Last Admin: 08/04/22 09:27 Dose: 10 unit Documented By: MARYAM Diltiazem HCl (Diltiazem Hcl Cd 180 Mg Cap.Er.24h) 360 mg PO DAILY [facility]; Protocol Last Admin: 08/04/22 09:15 Dose: 360 mg Documented By: MARYAM Ergocalciferol (Ergocalciferol (Vitamin D2) 1,250 Mcg Capsule) 1,250 mcg PO Q7D [facility] Last Admin: 07/29/22 12:09 Dose: 1,250 mcg Documented By: LOYD Gabapentin (Gabapentin 300 Mg Capsule) 300 mg PO BID [facility] Last Admin: 08/04/22 09:15 Dose: 300 mg Documented By: MARYAM Glucose (Glucose Gel 15 Gm Gel..Gram.) 15 gm PO Q15M PRN; Protocol PRN Reason: per Hypoglycemia Standing Ord. Last Admin: 08/02/22 22:06 Dose: 15 gm Documented By: CLYDE Comments: instructed to give per MD Vega. BG 87 Glucose (Glucose Gel 15 Gm Gel..Gram.) 15 gm PO Q15M PRN; Protocol PRN Reason: per Hypoglycemia Standing Ord. Heparin Sodium (Porcine) (Heparin Sodium,Porcine 5,000 Unit/Ml Vial) 5,000 unit SUBCUT Q12H [facility] Last Admin: 08/03/22 23:57 Dose: 5,000 unit Documented By: ANTONINA Hydralazine HCl (Hydralazine Hcl 25 Mg Tablet) 25 mg PO TID [facility]; Protocol Last Admin: 07/29/22 09:56 Dose: 25 mg Documented By: LOYD Dextrose (D10) 250 mls @ 750 mls/hr IV Q15M PRN; Protocol PRN Reason: per Hypoglycemia Standing Ord. Dextrose (D10) 250 mls @ 750 mls/hr IV Q15M PRN; Protocol PRN Reason: per Hypoglycemia Standing Ord. Ceftriaxone Sodium 2 gm/ (Sodium Chloride) 50 mls @ 100 mls/hr IV Q24H [facility] Stop: 08/12/22 08:29 Last Infusion: 08/03/22 10:02 Dose: 0 mls/hr Documented By: SOFFALa Insulin Glargine (Insulin Glargine,Hum.Rec.Anlog 100 Unit/Ml 10 Ml Vial) 35 unit SUBCUT BEDTIME [facility] Last Admin: 08/03/22 20:57 Dose: 35 unit Documented By: NAYE Insulin Human Lispro (Insulin Lispro 100 Unit/Ml 3 Ml Vial) 0 unit SUBCUT QIDACHS [facility]; Protocol Last Admin: 08/04/22 09:29 Dose: Not Given Documented By: MARYAM Non-Admin Reason: No Insulin Coverage Lamotrigine (Lamotrigine 25 Mg Tablet) 150 mg PO BID [facility] Last Admin: 08/04/22 09:14 Dose: 150 mg Documented By: MARYAM Levalbuterol HCl (Levalbuterol Hcl 1.25 Mg/3 Ml Vial.Neb) 1.25 mg INHALE RQ4H WHILE AWAKE [facility] Last Admin: 08/04/22 07:41 Dose: 1.25 mg Documented By: RAHEL Lidocaine (Lidocaine 4 % Patch Adh..Patch) 1 patch TRANSDERMA DAILY [facility] Last Admin: 08/04/22 09:27 Dose: 1 patch Documented By: MARYAM Lisinopril (Lisinopril 40 Mg Tablet) 40 mg PO DAILY [facility]; Protocol Last Admin: 07/29/22 09:56 Dose: 40 mg Documented By: LOYD Loperamide HCl (Loperamide Hcl 2 Mg Capsule) 4 mg PO Q4H PRN PRN Reason: diarrhea Last Admin: 08/01/22 16:49 Dose: 4 mg Documented By: OLGA Loratadine (Loratadine 10 Mg Tablet) 10 mg PO DAILY [facility] Last Admin: 08/04/22 09:15 Dose: 10 mg Documented By: MARYAM Methadone HCl (Methadone Hcl 20 Mg/2 Ml Oral.Conc) 50 mg PO DAILY [facility] Last Admin: 08/04/22 09:16 Dose: 50 mg Documented By: MARYAM Methylprednisolone Sodium Succinate (Methylprednisolone Sod Succ 40 Mg/Ml Vial) 40 mg IVPUSH DAILY [facility] Last Admin: 08/04/22 09:21 Dose: 40 mg Documented By: MARYAM Montelukast Sodium (Montelukast Sodium 10 Mg Tablet) 10 mg PO BEDTIME [facility] Last Admin: 08/03/22 20:56 Dose: 10 mg Documented By: NAYE Non-Formulary Medication (Roflumilast [Daliresp]) 500 mcg PO DAILY [facility] Omeprazole (Omeprazole 40 Mg Capsule.) 40 mg PO BID@0630,1630 [facility] Last Admin: 08/04/22 05:48 Dose: 40 mg Documented By: ANTONINA Ondansetron HCl (Ondansetron Hcl 4 Mg/2 Ml Vial) 4 mg IVPUSH Q8H PRN PRN Reason: Nausea and Vomiting Last Admin: 07/29/22 17:10 Dose: 4 mg Documented By: NAYE Pharmacy Consult (Consult Rx Perform Med Rec) 1 each MISCELLANE ONCE PRN PRN Reason: Consult order Simethicone (Simethicone 80 Mg Tab.Chew) 80 mg PO QIDWMHS PRN PRN Reason: Abdominal Distention Sodium Chloride (0.9 % Sodium Chloride Flush 3 Ml Syringe) 3 ml IVFLUSH QSHIFT [facility] Last Admin: 08/04/22 09:29 Dose: 3 ml Documented By: MARYAM Theophylline (Theophylline Anhydrous Er 300 Mg Tab.Er.12h) 300 mg PO Q12H [facility] Last Admin: 08/04/22 09:16 Dose: 300 mg Documented By: MARYAM Tiotropium [place] (Tiotropium [place] 18 Mcg Cap.W.Dev) 1 puff INHALE DAILY [facility] Last Admin: 08/04/22 07:41 Dose: 1 puff Documented By: RAHEL Labs 08/04/22 06:17 08/04/22 06:17 Labs: Laboratory Results - last 24 hr 08/03/22 08/03/22 08/03/22 10:54 15:58 19:27 MCV MCH MCHC RDW Plt Count MPV Absolute Nucleated RBC Nucleated RBC % (auto) VBG pH VBG pCO2 VBG pO2 VBG HCO3 VBG O2 Saturation VBG Base Excess Anion Gap Estim Creat Clear Calc Estimated GFR POC Glucose 150 H 372 H* 298 H Random Glucose Calcium Magnesium 08/04/22 08/04/22 08/04/22 06:17 06:17 06:18 MCV 90.3 MCH 28.5 MCHC 31.6 RDW 13.3 Plt Count 246 MPV 9.5 Absolute Nucleated RBC 0.000 Nucleated RBC % (auto) 0.0 VBG pH 7.58 H VBG pCO2 35 VBG pO2 76 VBG HCO3 33 H VBG O2 Saturation 97.0 VBG Base Excess 11.2 Anion Gap 13 Estim Creat Clear Calc 99.7 Estimated GFR > 60 POC Glucose Random Glucose 130 H Calcium 9.6 Magnesium 1.6 08/04/22 07:24 MCV MCH MCHC RDW Plt Count MPV Absolute Nucleated RBC Nucleated RBC % (auto) VBG pH VBG pCO2 VBG pO2 VBG HCO3 VBG O2 Saturation VBG Base Excess Anion Gap Estim Creat Clear Calc Estimated GFR POC Glucose 118 H Random Glucose Calcium Magnesium Procedures Date of Service Date of Service: 08/04/22 Progress Note: A&P Assessment and plan (1) Bacteremia: Status: Acute Assessment and Plan: imaging studies do not suggest intra-abdominal source continue current treatment patient has multiple medical problems has baseline significant shortness of breath diet as tolerated Time Spent With Patient Time: Total time managing care of this patient today ____ minutes. Quality Stroke Does the patient have a stroke diagnosis?: No VTE Prior VTE?: No VTE Risk Level:: Medical - moderate - high VTE Device Contraindication: Treatment Not Indicated VTE Drug Contraindication: N/A - Med Ordered
[2022-08-04 11:24] LABS: Glucose, Whole Blood 196 mg/dL (60-115)
--- NOTE | 2022-08-04 11:47 | HO.PM.IMPN ---
Subjective Subjective Date of Service: 08/04/22 Interval History: seen and examined this morning follow up for salmonella bacteremia, gastroenteritis feeling tired, having some abdominal pain but ate entire breakfast reports that diarrhea is slowing down Review of Systems Review of Systems: Yes all other systems are reviewed and are negative Constitutional Constitutional: Denies chills and Denies fever(s) ENT Ears, Nose, Mouth, and Throat: Denies dizziness Cardiovascular Cardiovascular: Denies chest pain and Denies palpitations Respiratory Respiratory: Denies cough Gastrointestinal Gastrointestinal: Reports abdominal pain, Reports diarrhea, Denies nausea and Denies vomiting Neurologic Neurologic: Denies dizziness Endocrine Endocrine: Denies palpitations Physical Exam Vital Signs: Vital Signs: Last Vital Signs Temp 97.9 F 08/04/22 11:15 Pulse 116 H 08/04/22 11:15 Resp 20 08/04/22 11:15 BP 151/81 H 08/04/22 11:15 Pulse Ox 93 08/04/22 11:15 O2 Del Method Nasal Cannula 08/04/22 11:15 O2 Flow Rate 3 08/04/22 11:15 FiO2 28 08/04/22 03:31 Oxygen Flow Rate 2 07/28/22 16:28 BMI result Body Mass Index 37.4 Const: General: comfortable, alert and awake Nutritional Appearance: obese Orientation/consciousness: patient oriented x3 Resp: Effort & Inspection: able to speak in complete sentences, no respiratory distress and no use of accessory muscles Auscultation: clear to auscultation bilaterally Cardio: Rate: regular rate Heart sounds: S1 normal heart sound present and S2 normal heart sound present GI: Other: no guarding, no rebound +BS Inspection: No distended Palpation (GI): Soft to palpation and nontender Neuro: Other: grossly nonfocal, able to move all extremities General: patient oriented x3 and moves all extremities Extrem: General: Yes no pedal edema Objective Data Active Medications Acetaminophen (Acetaminophen 325 Mg Tablet) 650 mg PO Q6H PRN PRN Reason: Pain, Mild (Pain Scale 1-3) Last Admin: 08/03/22 06:43 Dose: 650 mg Documented By: CLYDE Al Hydroxide/Mg Hydroxide (Magnesium Hydrox/Alum Hydrox 30 Ml Oral.Susp) 30 ml PO Q4H PRN PRN Reason: heartburn Last Admin: 07/29/22 17:55 Dose: 30 ml Documented By: HO.JIMY Albuterol/Ipratropium (Albuterol/Iprat 2.5/0.5mg 3 Ml Ampul.Neb) 3 ml INHALE RQ4H PRN PRN Reason: Shortness of Breath/Wheezing Atorvastatin Calcium (Atorvastatin Calcium 20 Mg Tablet) 20 mg PO DAILY [facility] Last Admin: 08/04/22 09:16 Dose: 20 mg Documented By: MARYAM Bupropion HCl (Bupropion Hcl 100 Mg Tablet) 100 mg PO DAILY [facility] Last Admin: 08/04/22 09:15 Dose: 100 mg Documented By: MARYAM Clonazepam (Clonazepam 1 Mg Tablet) 1 mg PO BID PRN PRN Reason: Anxiety Last Admin: 07/31/22 12:43 Dose: 1 mg Documented By: CHANI Heparin Sodium (Porcine) 50 (units/ Sodium Chloride 5 ml) 0 units IVFLUSH TID [facility] Last Admin: 08/04/22 09:27 Dose: 10 unit Documented By: MARYAM Diltiazem HCl (Diltiazem Hcl Cd 180 Mg Cap.Er.24h) 360 mg PO DAILY [facility]; Protocol Last Admin: 08/04/22 09:15 Dose: 360 mg Documented By: MARYAM Ergocalciferol (Ergocalciferol (Vitamin D2) 1,250 Mcg Capsule) 1,250 mcg PO Q7D [facility] Last Admin: 07/29/22 12:09 Dose: 1,250 mcg Documented By: BROFilipe Gabapentin (Gabapentin 300 Mg Capsule) 300 mg PO BID [facility] Last Admin: 08/04/22 09:15 Dose: 300 mg Documented By: MARYAM Glucose (Glucose Gel 15 Gm Gel..Gram.) 15 gm PO Q15M PRN; Protocol PRN Reason: per Hypoglycemia Standing Ord. Last Admin: 08/02/22 22:06 Dose: 15 gm Documented By: CLYDE Comments: instructed to give per MD Vega. BG 87 Glucose (Glucose Gel 15 Gm Gel..Gram.) 15 gm PO Q15M PRN; Protocol PRN Reason: per Hypoglycemia Standing Ord. Heparin Sodium (Porcine) (Heparin Sodium,Porcine 5,000 Unit/Ml Vial) 5,000 unit SUBCUT Q12H [facility] Last Admin: 08/03/22 23:57 Dose: 5,000 unit Documented By: ANTONINA Hydralazine HCl (Hydralazine Hcl 25 Mg Tablet) 25 mg PO TID [facility]; Protocol Last Admin: 07/29/22 09:56 Dose: 25 mg Documented By: LOYD Dextrose (D10) 250 mls @ 750 mls/hr IV Q15M PRN; Protocol PRN Reason: per Hypoglycemia Standing Ord. Dextrose (D10) 250 mls @ 750 mls/hr IV Q15M PRN; Protocol PRN Reason: per Hypoglycemia Standing Ord. Ceftriaxone Sodium 2 gm/ (Sodium Chloride) 50 mls @ 100 mls/hr IV Q24H [facility] Stop: 08/12/22 08:29 Last Infusion: 08/03/22 10:02 Dose: 0 mls/hr Documented By: KATIUSKA Insulin Glargine (Insulin Glargine,Hum.Rec.Anlog 100 Unit/Ml 10 Ml Vial) 35 unit SUBCUT BEDTIME [facility] Last Admin: 08/03/22 20:57 Dose: 35 unit Documented By: NAYE Insulin Human Lispro (Insulin Lispro 100 Unit/Ml 3 Ml Vial) 0 unit SUBCUT QIDACHS [facility]; Protocol Last Admin: 08/04/22 09:29 Dose: Not Given Documented By: MARYAM Non-Admin Reason: No Insulin Coverage Lamotrigine (Lamotrigine 25 Mg Tablet) 150 mg PO BID [facility] Last Admin: 08/04/22 09:14 Dose: 150 mg Documented By: MARYAM Levalbuterol HCl (Levalbuterol Hcl 1.25 Mg/3 Ml Vial.Neb) 1.25 mg INHALE RQ4H WHILE AWAKE [facility] Last Admin: 08/04/22 11:45 Dose: Not Given Documented By: RAHEL Non-Admin Reason: pt unavail Lidocaine (Lidocaine 4 % Patch Adh..Patch) 1 patch TRANSDERMA DAILY [facility] Last Admin: 08/04/22 09:27 Dose: 1 patch Documented By: MARYAM Lisinopril (Lisinopril 40 Mg Tablet) 40 mg PO DAILY [facility]; Protocol Last Admin: 07/29/22 09:56 Dose: 40 mg Documented By: LOYD Loperamide HCl (Loperamide Hcl 2 Mg Capsule) 4 mg PO Q4H PRN PRN Reason: diarrhea Last Admin: 08/01/22 16:49 Dose: 4 mg Documented By: OLGA Loratadine (Loratadine 10 Mg Tablet) 10 mg PO DAILY [facility] Last Admin: 08/04/22 09:15 Dose: 10 mg Documented By: MARYAM Methadone HCl (Methadone Hcl 20 Mg/2 Ml Oral.Conc) 50 mg PO DAILY [facility] Last Admin: 08/04/22 09:16 Dose: 50 mg Documented By: MARYAM Methylprednisolone Sodium Succinate (Methylprednisolone Sod Succ 40 Mg/Ml Vial) 40 mg IVPUSH DAILY [facility] Last Admin: 08/04/22 09:21 Dose: 40 mg Documented By: MARYAM Montelukast Sodium (Montelukast Sodium 10 Mg Tablet) 10 mg PO BEDTIME [facility] Last Admin: 08/03/22 20:56 Dose: 10 mg Documented By: NAYE Non-Formulary Medication (Roflumilast [Daliresp]) 500 mcg PO DAILY [facility] Omeprazole (Omeprazole 40 Mg Capsule.Dr) 40 mg PO BID@0630,1630 [facility] Last Admin: 08/04/22 05:48 Dose: 40 mg Documented By: ANTONINA Ondansetron HCl (Ondansetron Hcl 4 Mg/2 Ml Vial) 4 mg IVPUSH Q8H PRN PRN Reason: Nausea and Vomiting Last Admin: 07/29/22 17:10 Dose: 4 mg Documented By: NAYE Pharmacy Consult (Consult Rx Perform Med Rec) 1 each MISCELLANE ONCE PRN PRN Reason: Consult order Simethicone (Simethicone 80 Mg Tab.Chew) 80 mg PO QIDWMHS PRN PRN Reason: Abdominal Distention Sodium Chloride (0.9 % Sodium Chloride Flush 3 Ml Syringe) 3 ml IVFLUSH QSHIFT [facility] Last Admin: 08/04/22 09:29 Dose: 3 ml Documented By: MARYAM Theophylline (Theophylline Anhydrous Er 300 Mg Tab.Er.12h) 300 mg PO Q12H [facility] Last Admin: 08/04/22 09:16 Dose: 300 mg Documented By: MARYAM Tiotropium [place] (Tiotropium [place] 18 Mcg Cap.W.Dev) 1 puff INHALE DAILY [facility] Last Admin: 08/04/22 07:41 Dose: 1 puff Documented By: RAHEL Labs 08/04/22 06:17 08/04/22 06:17 Labs: Laboratory Results - last 24 hr 08/03/22 08/03/22 08/04/22 15:58 19:27 06:17 MCV 90.3 MCH 28.5 MCHC 31.6 RDW 13.3 Plt Count 246 MPV 9.5 Absolute Nucleated RBC 0.000 Nucleated RBC % (auto) 0.0 VBG pH VBG pCO2 VBG pO2 VBG HCO3 VBG O2 Saturation VBG Base Excess Anion Gap Estim Creat Clear Calc Estimated GFR POC Glucose 372 H* 298 H Random Glucose Calcium Magnesium 08/04/22 08/04/22 08/04/22 06:17 06:18 07:24 MCV MCH MCHC RDW Plt Count MPV Absolute Nucleated RBC Nucleated RBC % (auto) VBG pH 7.58 H VBG pCO2 35 VBG pO2 76 VBG HCO3 33 H VBG O2 Saturation 97.0 VBG Base Excess 11.2 Anion Gap 13 Estim Creat Clear Calc 99.7 Estimated GFR > 60 POC Glucose 118 H Random Glucose 130 H Calcium 9.6 Magnesium 1.6 08/04/22 11:20 MCV MCH MCHC RDW Plt Count MPV Absolute Nucleated RBC Nucleated RBC % (auto) VBG pH VBG pCO2 VBG pO2 VBG HCO3 VBG O2 Saturation VBG Base Excess Anion Gap Estim Creat Clear Calc Estimated GFR POC Glucose 196 H Random Glucose Calcium Magnesium Assessment and Plan (1) Bacteremia: Status: Acute (2) Salmonella gastroenteritis: Status: Acute Plan This is 51yo F with morbid obesity, asthma/COPD overlap, obesity hypoventilation, chronic hypoxic/hypercapneic resp failure on 2L of O2 + nocturnal BiPAP, hypogammaglobulinemia on IVIg, opioid dependence on methadone, DM2, HTN presented with nausea/vomiting/diarrhea, found to be hypotensive admitted for respiratory failure and VERONIKA found to have Salmonella bacteremia VERONIKA resolved with IVF likely prerenal or septic ATN [FENa was 1.5%] though serologic workup + urine eos pending. lisinopril on hold Nephrology following follow BMP Salmonella bacteremia ceftriaxone started 07/29 Cultures [facility] to [facility] lab for typing/speciation, but susceptible to ampicillin, ceftriaxone, levofloxacin, and TMP-SMX; resistant to cefazolin and gentamicin. diarrhea also PCR+ for Salmonella spp. US suggested distended GB without stones but HIDA negative for acalculous cholecystitis, suggestive of dyskinesia. surgery following, no indication for acute surgical intervention at this time ID following- plan continue IV ceftriaxone, transition to po ceftin on d/c. total 14 days antibiotics Hypernatremia resolved with D5W encourage po intake follow BMP sinus tachycardia, improving H/H stable, afebrile, tsh wnl resumed cardizem s/p IVF reduce dose of theophylline appears someone chronic hypokalemia/hypomagnesemia likely r/t GI loss. improving replace and follow hypotension lactic acidosis, resolved fluid-responsive. bp improved note on chronic steroids prednisone 20 mg resume bp meds as tolerated acute/chronic hypoxic/hyppercanpeic respiratory failure nocturnal BiPAP, daily VBG PCO2 stable asthma/COPD exacerbation IV steroids- start to taper, nebulized bronchoildators., will transition back to baseline steroids continue theophylline (will decrease dose to 300 bid given tachycardia), roflumilast, tiotropium leukocytosis likely r/t steroid use metabolic encephalopathy resolved after BiPAP support Tn-I elevation likely demand, decreased on repeat and no EKG changes DM2 correction-dose lispro HTN antihypertensives held (lisinopril, hydralazine) due to hypotension bp improving, will result diltiazem in light of tachycardia monitor BP closely and resume others as bp tolerates mood disorder bupropion, lamotrigine, clonazepam opioid dependence methadone 50 mg/d home dose Morbid obesity BMI 39.9 weight loss encouraged VTE ppx: UF dispo: seen by PT - rec STR, pt not sure she wants to go to rehab midline placed for access 08/02 attending - dr. Ramires In my clinical judgment, the patient requires continued inpatient hospitalization for the following reasons: resp failure, IV ABX, safe dispo Time Spent With Patient Time: Total time managing care of this patient today ____ minutes. Quality Stroke Does the patient have a stroke diagnosis?: No VTE Prior VTE?: No VTE Risk Level:: Medical - moderate - high VTE Device Contraindication: Treatment Not Indicated VTE Drug Contraindication: N/A - Med Ordered
[2022-08-04] MEDS: Insulin Lispro 100 UNIT/ML 3 ML VIAL SUBCUT ×3 (12:43→21:02)
[2022-08-04] MEDS: Heparin Sodium,Porcine 5,000 UNIT/ML VIAL 5000 UNIT SUBCUT (12:44)
[2022-08-04] MEDS: Magnesium Sulfate/H2O 2 GM/50 ML PIGGYBACK IV (12:57)
[2022-08-04 15:52] LABS: Glucose, Whole Blood 297 mg/dL (60-115)
[2022-08-04 20:07] LABS: Glucose, Whole Blood 267 mg/dL (60-115)
[2022-08-04] MEDS: Montelukast Sodium 10 MG TABLET PO (21:01)
[2022-08-04] MEDS: Insulin Glargine,Hum.rec.anlog 100 UNIT/ML 10 ML VIAL 35 UNIT SUBCUT (21:02)
[2022-08-04] MEDS: Acetaminophen 325 MG TABLET 650 MG PO (21:06)
[2022-08-05] VITALS (11 sets, daily range): BP systolic 130–157; BP diastolic 74–91; PULSE 77–108; RESP 16–20; TEMP 36.1–37; O2SAT 93–99; BMI 38.5
[2022-08-05] MEDS: Heparin Sodium,Porcine 5,000 UNIT/ML VIAL 5000 UNIT SUBCUT ×3 (01:33→23:43)
[2022-08-05] MEDS: Omeprazole 40 MG CAPSULE.DR PO ×2 (05:39→15:46)
[2022-08-05 07:07] LABS: Anion Gap 12 (12-20); Blood Urea Nitrogen 19 mg/dL (9-16); Calcium 9.6 mg/dL (8.4-10.2); Carbon Dioxide 33 mmol/L (22-29); Chloride 102 mmol/L (96-108); Creatinine Clr Calc Pharmacy 102.9; Estimated Glomerular Filt Rate > 60; Glucose Random 94 mg/dL (60-115); Sodium 143 mmol/L (135-145)
[2022-08-05 07:32] LABS: Glucose, Whole Blood 85 mg/dL (60-115)
[2022-08-05] MEDS: levalbuterol HCL 1.25 MG/3 ML VIAL.NEB INHALE ×4 (07:49→19:30)
[2022-08-05] MEDS: predniSONE 20 MG TABLET PO (07:57)
[2022-08-05] MEDS: buPROPion HCL 100 MG TABLET PO (07:57)
[2022-08-05] MEDS: lamoTRIgine 25 MG TABLET 150 MG PO ×2 (07:57→20:51)
[2022-08-05] MEDS: Gabapentin 300 MG CAPSULE PO ×2 (07:57→20:51)
[2022-08-05] MEDS: Atorvastatin Calcium 20 MG TABLET PO (07:57)
[2022-08-05] MEDS: Theophylline Anhydrous ER 300 MG TAB.ER.12H PO ×2 (07:57→20:51)
[2022-08-05] MEDS: dilTIAZem HCL CD 180 MG CAP.ER.24H 360 MG PO (07:57)
[2022-08-05] MEDS: methADONE HCl 20 MG/2 ML ORAL.CONC 50 MG PO (07:58)
[2022-08-05] MEDS: Lidocaine 4 % Patch ADH..PATCH 1 PATCH TRANSDERMA (07:59)
[2022-08-05] MEDS: 0.9 % Sodium Chloride Flush 3 ML SYRINGE IVFLUSH ×3 (07:59→23:45)
[2022-08-05] MEDS: Loratadine 10 MG TABLET PO (07:59)
[2022-08-05] MEDS: Ergocalciferol (Vitamin D2) 1,250 MCG CAPSULE 1250 MCG PO (08:07)
[2022-08-05] MEDS: Heparin Sodium,Porcine Flush 50 UNITS, 0.9 % Sodium Chloride Flush 5 ML IVFLUSH ×3 (08:13→20:51)
[2022-08-05] MEDS: cefTRIAXone sodium 2 GM in 0.9 % Sodium Chloride 50 ML IV (08:23)
--- NOTE | 2022-08-05 10:56 | HO.PM.IMPN ---
Subjective Subjective Date of Service: 08/05/22 Interval History: seen and examined this morning follow up for salmonella bacteremia, gastroenteritis reports that diarrhea is slowing down Review of Systems Review of Systems: Yes all other systems are reviewed and are negative Constitutional Constitutional: Denies chills and Denies fever(s) ENT Ears, Nose, Mouth, and Throat: Denies dizziness Cardiovascular Cardiovascular: Denies chest pain and Denies palpitations Respiratory Respiratory: Denies cough Gastrointestinal Gastrointestinal: Reports abdominal pain, Reports diarrhea, Denies nausea and Denies vomiting Neurologic Neurologic: Denies dizziness Endocrine Endocrine: Denies palpitations Physical Exam Vital Signs: Vital Signs: Last Vital Signs Temp 97.8 F 08/05/22 07:17 Pulse 108 H 08/05/22 07:50 Resp 18 08/05/22 07:50 BP 130/80 08/05/22 07:17 Pulse Ox 99 08/05/22 07:17 O2 Del Method Room Air 08/05/22 07:17 O2 Flow Rate 3 08/04/22 23:47 FiO2 28 08/04/22 03:31 Oxygen Flow Rate 2 07/28/22 16:28 BMI result Body Mass Index 38.5 Appearing in no acute distress lung sounds dim, chronic heart regular rate rhythm, clear S1, S2 positive bowel sounds, abdomen is soft, nontender neuro patient is alert x3, no focal deficits Objective Data Active Medications Acetaminophen (Acetaminophen 325 Mg Tablet) 650 mg PO Q6H PRN PRN Reason: Pain, Mild (Pain Scale 1-3) Last Admin: 08/04/22 21:06 Dose: 650 mg Documented By: TENA Al Hydroxide/Mg Hydroxide (Magnesium Hydrox/Alum Hydrox 30 Ml Oral.Susp) 30 ml PO Q4H PRN PRN Reason: heartburn Last Admin: 07/29/22 17:55 Dose: 30 ml Documented By: NAYE Atorvastatin Calcium (Atorvastatin Calcium 20 Mg Tablet) 20 mg PO DAILY [facility], [facility] Last Admin: 08/05/22 07:57 Dose: 20 mg Documented By: PARISH Bupropion HCl (Bupropion Hcl 100 Mg Tablet) 100 mg PO DAILY [facility], [facility] Last Admin: 08/05/22 07:57 Dose: 100 mg Documented By: PARISH Clonazepam (Clonazepam 1 Mg Tablet) 1 mg PO BID PRN PRN Reason: Anxiety Last Admin: 07/31/22 12:43 Dose: 1 mg Documented By: CHANI Heparin Sodium (Porcine) 50 (units/ Sodium Chloride 5 ml) 0 units IVFLUSH TID [facility], [facility] Last Admin: 08/05/22 08:13 Dose: 50 unit Documented By: PARISH Diltiazem HCl (Diltiazem Hcl Cd 180 Mg Cap.Er.24h) 360 mg PO DAILY [facility], [facility]; Protocol Last Admin: 08/05/22 07:57 Dose: 360 mg Documented By: PARISH Ergocalciferol (Ergocalciferol (Vitamin D2) 1,250 Mcg Capsule) 1,250 mcg PO Q7D [facility], [facility] Last Admin: 08/05/22 08:07 Dose: 1,250 mcg Documented By: PARISH Gabapentin (Gabapentin 300 Mg Capsule) 300 mg PO BID [facility], [facility] Last Admin: 08/05/22 07:57 Dose: 300 mg Documented By: PARISH Glucose (Glucose Gel 15 Gm Gel..Gram.) 15 gm PO Q15M PRN; Protocol PRN Reason: per Hypoglycemia Standing Ord. Last Admin: 08/02/22 22:06 Dose: 15 gm Documented By: CLYDE Comments: instructed to give per MD Vega. BG 87 Glucose (Glucose Gel 15 Gm Gel..Gram.) 15 gm PO Q15M PRN; Protocol PRN Reason: per Hypoglycemia Standing Ord. Heparin Sodium (Porcine) (Heparin Sodium,Porcine 5,000 Unit/Ml Vial) 5,000 unit SUBCUT Q12H [facility], [facility] Last Admin: 08/05/22 01:33 Dose: 5,000 unit Documented By: TENA Hydralazine HCl (Hydralazine Hcl 25 Mg Tablet) 25 mg PO TID [facility], [facility]; Protocol Last Admin: 07/29/22 09:56 Dose: 25 mg Documented By: BROFilipe Dextrose (D10) 250 mls @ 750 mls/hr IV Q15M PRN; Protocol PRN Reason: per Hypoglycemia Standing Ord. Dextrose (D10) 250 mls @ 750 mls/hr IV Q15M PRN; Protocol PRN Reason: per Hypoglycemia Standing Ord. Ceftriaxone Sodium 2 gm/ (Sodium Chloride) 50 mls @ 100 mls/hr IV Q24H [facility], [facility]1983 Stop: 08/12/22 08:29 Last Infusion: 08/05/22 08:55 Dose: 0 mls/hr Documented By: PARISH Insulin Glargine (Insulin Glargine,Hum.Rec.Anlog 100 Unit/Ml 10 Ml Vial) 35 unit SUBCUT BEDTIME [facility], [facility]1983 Last Admin: 08/04/22 21:02 Dose: 35 unit Documented By: TENA Insulin Human Lispro (Insulin Lispro 100 Unit/Ml 3 Ml Vial) 0 unit SUBCUT QIDACHS [facility], [facility]; Protocol Last Admin: 08/05/22 07:58 Dose: Not Given Documented By: PARISH Non-Admin Reason: No Insulin Coverage Lamotrigine (Lamotrigine 25 Mg Tablet) 150 mg PO BID [facility], [facility] Last Admin: 08/05/22 07:57 Dose: 150 mg Documented By: PARISH Levalbuterol HCl (Levalbuterol Hcl 1.25 Mg/3 Ml Vial.Neb) 1.25 mg INHALE RQ4H WHILE AWAKE [facility], [facility] Last Admin: 08/05/22 07:49 Dose: 1.25 mg Documented By: RAHEL Lidocaine (Lidocaine 4 % Patch Adh..Patch) 1 patch TRANSDERMA DAILY [facility], [facility]–1983 Last Admin: 08/05/22 07:59 Dose: 1 patch Documented By: PARISH Lisinopril (Lisinopril 40 Mg Tablet) 40 mg PO DAILY [facility], [facility]; Protocol Last Admin: 07/29/22 09:56 Dose: 40 mg Documented By: BROFilipe Loperamide HCl (Loperamide Hcl 2 Mg Capsule) 4 mg PO Q4H PRN PRN Reason: diarrhea Last Admin: 08/01/22 16:49 Dose: 4 mg Documented By: OLGA Loratadine (Loratadine 10 Mg Tablet) 10 mg PO DAILY [facility], [facility] Last Admin: 08/05/22 07:59 Dose: 10 mg Documented By: PARISH Methadone HCl (Methadone Hcl 20 Mg/2 Ml Oral.Conc) 50 mg PO DAILY [facility], [facility] Last Admin: 08/05/22 07:58 Dose: 50 mg Documented By: PARISH Montelukast Sodium (Montelukast Sodium 10 Mg Tablet) 10 mg PO BEDTIME [facility], [facility] Last Admin: 08/04/22 21:01 Dose: 10 mg Documented By: TENA Non-Formulary Medication (Roflumilast [Daliresp]) 500 mcg PO DAILY [facility], [facility] Omeprazole (Omeprazole 40 Mg Capsule.Dr) 40 mg PO BID@0630,1630 [facility], [facility] Last Admin: 08/05/22 05:39 Dose: 40 mg Documented By: TENA Ondansetron HCl (Ondansetron Hcl 4 Mg/2 Ml Vial) 4 mg IVPUSH Q8H PRN PRN Reason: Nausea and Vomiting Last Admin: 07/29/22 17:10 Dose: 4 mg Documented By: NAYE Pharmacy Consult (Consult Rx Perform Med Rec) 1 each MISCELLANE ONCE PRN PRN Reason: Consult order Prednisone (Prednisone 20 Mg Tablet) 20 mg PO DAILY [facility] Last Admin: 08/05/22 07:57 Dose: 20 mg Documented By: PARISH Simethicone (Simethicone 80 Mg Tab.Chew) 80 mg PO QIDWMHS PRN PRN Reason: Abdominal Distention Sodium Chloride (0.9 % Sodium Chloride Flush 3 Ml Syringe) 3 ml IVFLUSH QSHIFT [facility], [facility] Last Admin: 08/05/22 07:59 Dose: 3 ml Documented By: PARISH Theophylline (Theophylline Anhydrous Er 300 Mg Tab.Er.12h) 300 mg PO Q12H [facility], [facility] Last Admin: 08/05/22 07:57 Dose: 300 mg Documented By: PARISH Tiotropium [place] (Tiotropium [place] 18 Mcg Cap.W.Dev) 1 puff INHALE DAILY [facility] Last Admin: 08/05/22 07:48 Dose: 1 puff Documented By: BLASCL Labs 08/04/22 06:17 08/05/22 06:27 Labs: Laboratory Results - last 24 hr 08/04/22 08/04/22 08/04/22 11:20 15:48 20:02 Anion Gap Estim Creat Clear Calc Estimated GFR POC Glucose 196 H 297 H 267 H Random Glucose Calcium 08/05/22 08/05/22 06:27 07:16 Anion Gap 12 Estim Creat Clear Calc 102.9 Estimated GFR > 60 POC Glucose 85 Random Glucose 94 Calcium 9.6 Assessment and Plan (1) Bacteremia: Status: Acute (2) Salmonella gastroenteritis: Status: Acute Plan 51yo F with morbid obesity, asthma/COPD overlap, obesity hypoventilation, chronic hypoxic/hypercapneic resp failure on 2L of O2 + nocturnal BiPAP, hypogammaglobulinemia on IVIg, opioid dependence on methadone, DM2, HTN presented with nausea/vomiting/diarrhea, found to be hypotensive admitted for respiratory failure and VERONIKA found to have Salmonella bacteremia Leukocytosis already on abx for salmonella bacteremia on steroids discuss with ID VERONIKA resolved with IVF likely prerenal or septic ATN [FENa was 1.5%] though serologic workup + urine eos pending. lisinopril on hold Nephrology following follow BMP Salmonella bacteremia ceftriaxone started 07/29 Cultures sent [facility] lab for typing/speciation, but susceptible to ampicillin, ceftriaxone, levofloxacin, and TMP-SMX; resistant to cefazolin and gentamicin. diarrhea also PCR+ for Salmonella spp. US suggested distended GB without stones but HIDA negative for acalculous cholecystitis, suggestive of dyskinesia. surgery following, no indication for acute surgical intervention at this time ID following- plan continue IV ceftriaxone, transition to po ceftin on d/c. total 14 days antibiotics, midline placed Hypernatremia. resolved with D5W encourage po intake follow BMP sinus tachycardia, improving H/H stable, afebrile, tsh wnl resumed cardizem s/p IVF reduce dose of theophylline appears someone chronic hypokalemia/hypomagnesemia likely r/t GI loss. improving replace and follow hypotension lactic acidosis, resolved fluid-responsive. bp improved note on chronic steroids prednisone 20 mg resume bp meds as tolerated acute/chronic hypoxic/hyppercanpeic respiratory failure nocturnal BiPAP, daily VBG PCO2 stable asthma/COPD exacerbation IV steroids- start to taper, nebulized bronchoildators., will transition back to baseline steroids continue theophylline (will decrease dose to 300 bid given tachycardia), roflumilast, tiotropium leukocytosis likely r/t steroid use metabolic encephalopathy resolved after BiPAP support Tn-I elevation likely demand, decreased on repeat and no EKG changes DM2 correction-dose lispro HTN antihypertensives held (lisinopril, hydralazine) due to hypotension bp improving, will result diltiazem in light of tachycardia monitor BP closely and resume others as bp tolerates mood disorder bupropion, lamotrigine, clonazepam opioid dependence methadone 50 mg/d home dose Morbid obesity BMI 39.9 weight loss encouraged VTE ppx: [facility] attending - dr. Jones In my clinical judgment, the patient requires continued inpatient hospitalization for the following reasons: resp failure, IV ABX, safe dispo Time Spent With Patient Time: Total time managing care of this patient today ____ minutes. Quality Stroke Does the patient have a stroke diagnosis?: No VTE Prior VTE?: No VTE Risk Level:: Medical - moderate - high VTE Device Contraindication: Treatment Not Indicated VTE Drug Contraindication: N/A - Med Ordered
[2022-08-05 11:10] LABS: Glucose, Whole Blood 166 mg/dL (60-115)
[2022-08-05] MEDS: Insulin Lispro 100 UNIT/ML 3 ML VIAL SUBCUT ×3 (12:08→20:50)
[2022-08-05] MEDS: Acetaminophen 325 MG TABLET 650 MG PO (13:45)
[2022-08-05 16:58] LABS: Glucose, Whole Blood 256 mg/dL (60-115)
[2022-08-05 20:34] LABS: Glucose, Whole Blood 341 mg/dL (60-115)
[2022-08-05] MEDS: Insulin Glargine,Hum.rec.anlog 100 UNIT/ML 10 ML VIAL 35 UNIT SUBCUT (20:51)
[2022-08-05] MEDS: Montelukast Sodium 10 MG TABLET PO (20:51)
[2022-08-06] VITALS (9 sets, daily range): BP systolic 125–177; BP diastolic 80–94; PULSE 89–137; RESP 15–22; TEMP 36.2–36.4; O2SAT 96–99; BMI 39.0
[2022-08-06] MEDS: Omeprazole 40 MG CAPSULE.DR PO (05:56)
[2022-08-06 07:08] LABS: Basophils Percent Auto 0.2 % (0-2); Eosinophils Absolute Auto 0.1 X10*3/uL (0.0-0.4); Eosinophils Percent Auto 0.7 % (0-4); Hematocrit 34.4 % (37.0-47.0); Hemoglobin 10.6 g/dl (12.0-16.0); Imm Gran Abs Auto 0.26 X10*3/uL (0.00-0.03); Imm Gran Pct Auto 1.7 % (0.0-0.4); Lymphocytes Absolute Auto 0.8 X10*3/uL (1.2-4.9); Lymphocytes Percent Auto 5.3 % (20-40); MANUAL DIFF FLAG SCAN; Mean Corpuscular HGB Conc 30.8 g/dl (31.0-35.0); Mean Corpuscular Hemoglobin 28.6 pg (27.0-33.0); Monocytes Absolute Auto 0.7 X10*3/uL (0.1-1.2); Monocytes Percent Auto 4.7 % (2-11); Neutrophils Absolute Auto 13.3 x10*3/uL (2.0-8.3); Neutrophils Percent Auto 87.4 % (45-73); PLT CLUMP 1; Red Cell Distribution Width 13.2 % (11.0-16.0); SCAN SMEAR FLAG 1
[2022-08-06 07:12] LABS: Anion Gap 14 (12-20); Blood Urea Nitrogen 17 mg/dL (9-16); Carbon Dioxide 31 mmol/L (22-29); Chloride 101 mmol/L (96-108); Creatinine Clr Calc Pharmacy 105.4; Estimated Glomerular Filt Rate > 60; Glucose Random 91 mg/dL (60-115); Potassium 4.1 mmol/L (3.3-5.1); Sodium 142 mmol/L (135-145)
[2022-08-06] MEDS: dilTIAZem HCL CD 180 MG CAP.ER.24H 360 MG PO (07:45)
[2022-08-06] MEDS: lamoTRIgine 25 MG TABLET 150 MG PO (07:45)
[2022-08-06] MEDS: Theophylline Anhydrous ER 300 MG TAB.ER.12H PO (07:45)
[2022-08-06] MEDS: Gabapentin 300 MG CAPSULE PO (07:45)
[2022-08-06] MEDS: Loratadine 10 MG TABLET PO (07:46)
[2022-08-06] MEDS: buPROPion HCL 100 MG TABLET PO (07:46)
[2022-08-06] MEDS: Atorvastatin Calcium 20 MG TABLET PO (07:46)
[2022-08-06] MEDS: Heparin Sodium,Porcine Flush 50 UNITS, 0.9 % Sodium Chloride Flush 5 ML IVFLUSH (07:46)
[2022-08-06] MEDS: methADONE HCl 20 MG/2 ML ORAL.CONC 50 MG PO (07:46)
[2022-08-06] MEDS: predniSONE 20 MG TABLET PO (07:46)
[2022-08-06 07:48] LABS: SLIDE REVIEW VERIFIED; White Blood Count 15.2 X10*3/uL (4.8-10.8)
[2022-08-06] MEDS: Lidocaine 4 % Patch ADH..PATCH 1 PATCH TRANSDERMA (07:53)
[2022-08-06 07:56] LABS: Glucose, Whole Blood 83 mg/dL (60-115)
[2022-08-06] MEDS: 0.9 % Sodium Chloride Flush 3 ML SYRINGE IVFLUSH (08:05)
[2022-08-06] MEDS: cefTRIAXone sodium 2 GM in 0.9 % Sodium Chloride 50 ML IV (08:39)
[2022-08-06] MEDS: levalbuterol HCL 1.25 MG/3 ML VIAL.NEB INHALE ×3 (08:53→15:46)
[2022-08-06 09:15] LABS: PES - Abn Protein Band 1 TNPT
--- NOTE | 2022-08-06 09:17 | P.DS_ITS ---
DS: Providers Provider Date of Service: 08/06/22 Date of admission: 07/28/22 23:48 Primary care physician: Kelli Benavides MD Consults: 07/29/22 08:27 Consult to Nephrology Routine Consulting Provider: [facility] Reason for consultation: veronika 07/30/22 09:10 Consult to Gastroenterology Routine Consulting Provider: [facility] Reason for consultation: GNR bacteremia ?GB source acalculous alba? 07/30/22 13:16 Consult to Infectious Diseases Routine Consulting Provider: [facility] Reason for consultation: GNR bacteremia, stool pos for SALMONELLA 07/30/22 16:27 Consult to General Surgery Routine Consulting Provider: [facility] Reason for consultation: sepsis, acalculous cholecystitis DS: Diagnosis Discharge Diagnosis (1) Bacteremia: Status: Acute (2) Salmonella gastroenteritis: Status: Acute DS: Summary Hospital Course Hospital Course: HP as per admitting provider 52-year-old female with past medical history of CHF/asthma overlap with several admissions in the recent past, history of CHF, hypertension, diabetes was seen in the hospital on 07/24 for shortness of breath, treated with steroids, and breathing treatment and sent home returns with complaints of nausea vomiting diarrhea since 07/26.? Patient is on BiPAP at this time, time did, I am unable to get much history from her therefore history is obtained from ED physician..? Her pH on arrival was found to be 7.1 with a CO2 in the 80s.? Patient was placed on BiPAP with improvement in her labs.? Her other labs show WBC count of 9.9, creatinine of 3 with a baseline of 0.69, lactic acid of 2.3, troponin of 65, Patient abdomen pelvic CT shows no acute findings within the abdomen or pelvis. Patient uses BiPAP at bedtime, she is currently placed? on BiPAP and will be admitted for further management . Leukocytosis. Resolved, also chronically elevated already on abx for salmonella bacteremia on steroids VERONIKA. resolved with IVF likely prerenal or septic ATN evaluated by Nephrology Salmonella bacteremia ceftriaxone started 07/29? Cultures sent to state lab for typing/speciation, but susceptible to ampicillin, ceftriaxone, levofloxacin, and TMP-SMX; resistant to cefazolin and gentamicin.? diarrhea also PCR+ for Salmonella spp. US suggested distended GB without stones but HIDA negative for acalculous cholecystitis, suggestive of dyskinesia.? surgery following, no indication for acute surgical intervention ID following- treated with IV ceftriaxone initially. Removal of 20g 8cm midline to right arm without complication. Home with 14 days of oral Ceftin Hypernatremia. resolved with D5W sinus tachycardia H/H stable, afebrile, tsh wnl resumed cardizem s/p IVF reduce dose of theophylline hypokalemia/hypomagnesemia likely r/t GI loss. hypotension lactic acidosis, resolved fluid-responsive.? bp improved note on chronic steroids prednisone 20 mg acute/chronic hypoxic/hyppercanpeic respiratory failure nocturnal BiPAP, daily VBG PCO2 stable asthma/COPD exacerbation IV steroids- start to taper, nebulized bronchoildators., will transition back to baseline steroids continue theophylline (will decreased dose to 300 bid given tachycardia), roflumilast, tiotropium leukocytosis likely r/t steroid use metabolic encephalopathy resolved after BiPAP support chronic medical issues DM2 HTN mood disorder opioid dependence Morbid obesity Time Spent with Patient Time attestation: Total time managing care of this patient today ____ minutes. Discharge coordination time: Greater than 30 minutes Quality: Safe Use of Opioids Does Pt have an Active Cancer Diagnosis on the Problem List?: No Quality: Stroke Does the patient have a stroke diagnosis?: No Physical Exam Vital Signs: Vital Signs: Last Vital Signs Temp 97.6 F 08/06/22 07:10 Pulse 90 08/06/22 08:55 Resp 22 H 08/06/22 08:55 BP 159/89 H 08/06/22 07:10 Pulse Ox 99 08/06/22 07:10 O2 Del Method Nasal Cannula 08/06/22 07:10 O2 Flow Rate 3 08/06/22 07:10 FiO2 28 08/06/22 03:16 Oxygen Flow Rate 2 07/28/22 16:28 BMI result Body Mass Index 39.0 Appearing in no acute distress head is normocephalic atraumatic eyes pupils are PERRLA sclera is anicteric mouth throat mucous membranes are intact and moist neck is supple no lymphadenopathy, no JVD noted lung sounds are clear to auscultation. chronic diminished heart regular rate rhythm, clear S1, S2 positive bowel sounds, abdomen is soft, nontender neuro patient is alert x3, no focal deficits DS: Data Data Completed and Pending Completed studies during hospitalization [Text1]: Procedures Assistance with Respiratory Ventilation, 24-96 Consecutive Hours, Continuous Positive Airway Pressure (05/18/21) Assistance with Respiratory Ventilation, Less than 24 Consecutive Hours, Continuous Positive Airway Pressure (06/28/22) Insertion of Endotracheal Airway into Trachea, Via Natural or Artificial Opening (12/21/21) Insertion of Infusion Device into Right Atrium, Percutaneous Approach (12/21/21) Insertion of Infusion Device into Superior Vena Cava, Percutaneous Approach (11/02/21) Introduction of Vasopressor into Peripheral Vein, Percutaneous Approach (12/21/21) Respiratory Ventilation, 24-96 Consecutive Hours (12/21/21) Ultrasonography of Superior Vena Cava, Guidance (12/21/21) Labs on day of discharge: Laboratory Results - last 24 hr 07/31/22 08/05/22 08/05/22 06:47 10:53 16:54 WBC RBC Hgb Hct MCV MCH MCHC RDW Plt Count MPV Immature Gran % (Auto) Neut % (Auto) Lymph % (Auto) [place] % (Auto) Eos % (Auto) Baso % (Auto) Lymph # (Auto) [place] # (Auto) Eos # (Auto) Baso # (Auto) Abs Immat Gran (auto) Absolute Neuts (auto) Absolute Nucleated RBC Nucleated RBC % (auto) Smear Tech's Comments Sodium Potassium Chloride Carbon Dioxide Anion Gap BUN Creatinine Estim Creat Clear Calc Estimated GFR POC Glucose 166 H 256 H Random Glucose Calcium Abnorm Protein Band 1 TNPT Abnorm Protein Band 2 TNP Abnorm Protein Band 3 TNP 08/05/22 08/06/22 08/06/22 20:31 06:39 06:39 WBC 15.2 H RBC 3.70 L Hgb 10.6 L Hct 34.4 L MCV 93.0 MCH 28.6 MCHC 30.8 L RDW 13.2 Plt Count TNP MPV Not Reportable Immature Gran % (Auto) 1.7 H Neut % (Auto) 87.4 H Lymph % (Auto) 5.3 L [place] % (Auto) 4.7 Eos % (Auto) 0.7 Baso % (Auto) 0.2 Lymph # (Auto) 0.8 L [place] # (Auto) 0.7 Eos # (Auto) 0.1 Baso # (Auto) 0.0 Abs Immat Gran (auto) 0.26 H Absolute Neuts (auto) 13.3 H Absolute Nucleated RBC 0.000 Nucleated RBC % (auto) 0.0 Smear Tech's Comments VERIFIED Sodium 142 Potassium 4.1 Chloride 101 Carbon Dioxide 31 H Anion Gap 14 BUN 17 H Creatinine 0.60 Estim Creat Clear Calc 105.4 Estimated GFR > 60 POC Glucose 341 H Random Glucose 91 Calcium 9.0 D Abnorm Protein Band 1 Abnorm Protein Band 2 Abnorm Protein Band 3 08/06/22 07:09 WBC RBC Hgb Hct MCV MCH MCHC RDW Plt Count MPV Immature Gran % (Auto) Neut % (Auto) Lymph % (Auto) [place] % (Auto) Eos % (Auto) Baso % (Auto) Lymph # (Auto) [place] # (Auto) Eos # (Auto) Baso # (Auto) Abs Immat Gran (auto) Absolute Neuts (auto) Absolute Nucleated RBC Nucleated RBC % (auto) Smear Tech's Comments Sodium Potassium Chloride Carbon Dioxide Anion Gap BUN Creatinine Estim Creat Clear Calc Estimated GFR POC Glucose 83 Random Glucose Calcium Abnorm Protein Band 1 Abnorm Protein Band 2 Abnorm Protein Band 3 Discharge Plan Discharge Anticipated Discharge Date/Time: 08/06/22 09:09 Patient Disposition: Home Health Service Discharge Diagnosis: Salmonella bacteremia Referrals: Kelli Benavides MD [Primary Care Provider] - 1 Week Discharge Medications: New cefuroxime axetil 500 mg tablet 500 mg PO BID Qty: 28 0RF Continued ipratropium-albuterol 0.5 mg-3 mg(2.5 mg base)/3 mL solution for nebulization 3 ml PO Q4H PRN (Reason: for wheezing) Qty: 540 6RF Brovana 15 mcg/2 mL solution for nebulization 2 ml inhalation Q12H 30 Days Qty: 120 11RF Spiriva with HandiHaler 18 mcg capsule, w/inhalation device 1 cap inhalation DAILY Qty: 30 11RF gabapentin 300 mg capsule 300 mg PO BID Qty: 60 3RF diltiazem HCl [Tiadylt ER] 360 mg capsule,extended release 24 hr 360 mg PO DAILY rosuvastatin 5 mg tablet 5 mg PO BEDTIME roflumilast [Daliresp] 500 mcg tablet 500 mcg PO DAILY insulin lispro [Humalog U-100 Insulin] 100 unit/mL solution See Protocol subcut TIDAC Protocol: Insulin Correction Scale Less than or equal to 110 ---- Give (units): 0 111 to 150 Give (units): 0 151 to 200 Give (units): 2 201 to 250 Give (units): 4 251 to 300 Give (units): 6 301 to 350 Give (units): 8 Greater than 350 Give (units): 10 Call MD if Blood Glucose > : 350 metformin 500 mg tablet extended release 24 hr 1,000 mg PO BID hydralazine 25 mg tablet 25 mg PO TID insulin lispro 100 unit/mL solution 4 unit subcut TIDAC omeprazole 40 mg capsule,delayed release(DR/EC) 40 mg PO DAILY@0630 insulin glargine [Lantus U-100 Insulin] 100 unit/mL solution 35 unit subcut BEDTIME Qty: 10 0RF methadone 10 mg/mL Concentrate 50 mg PO DAILY ergocalciferol (vitamin D2) 1,250 mcg (50,000 unit) capsule 1,250 mcg PO QWEEK lisinopril 40 mg tablet 40 mg PO DAILY Serevent Diskus 50 mcg/dose Blister With Device 1 inh inhalation RBID 30 Days Qty: 60 2RF simethicone [Gas Relief (simethicone)] 80 mg Tablet,Chewable 80 mg PO QIDWMHS PRN (Reason: Abdominal Distention) Qty: 30 0RF prednisone 10 mg tablet 20 mg PO DAILY lamotrigine 150 mg tablet 150 mg PO BID bupropion HCl 100 mg tablet 100 mg PO DAILY sodium chloride 7 % solution for nebulization 4 ml inhalation BID alendronate 70 mg tablet 70 mg PO QWEEK lidocaine 5 % adhesive patch,medicated 1 patch topical DAILY Rx Instructions: APPLY FOR 12 HOURS THEN REMOVE FOR 12 HOURS clonazepam 1 mg tablet 1 mg PO BID PRN (Reason: Anxiety) ibuprofen 600 mg tablet 600 mg PO Q8H PRN (Reason: Pain) montelukast 10 mg tablet 10 mg PO BEDTIME albuterol sulfate [ProAir HFA] 90 mcg/actuation HFA aerosol inhaler 2 puff inhalation Q4H PRN (Reason: Shortness Of Breath Or Wheezing) loratadine [Claritin] 10 mg tablet 10 mg PO DAILY budesonide 0.5 mg/2 mL suspension for nebulization 0.5 mg inhalation BID Qty: 120 11RF theophylline 450 mg tablet extended release 12 hr 450 mg PO Q12H 30 Days Qty: 60 6RF Discharge Orders: Discharge Order (Routine); Ordered 08/06/22 Ordered By: China Brito Diet: Advance to usual diet Activity on Discharge: As tolerated Stand Alone Forms: Patient Portal Discharge page Care Plan Goals: Complete resolution of symptoms Health Concerns: Salmonella bacteremia Plan of Treatment: Follow-up with primary care provider as needed Take all medications as prescribed He will be on Ceftin for 14 days for salmonella bacteremia Assessment: See discharge summary
[2022-08-06 11:52] LABS: Glucose, Whole Blood 165 mg/dL (60-115)
[2022-08-06] MEDS: Heparin Sodium,Porcine 5,000 UNIT/ML VIAL 5000 UNIT SUBCUT (12:08)
[2022-08-06] MEDS: Insulin Lispro 100 UNIT/ML 3 ML VIAL SUBCUT (12:08)
--- NOTE | 2022-08-06 12:08 | MHC.CM.PN ---
EMR reviewed and per MD rounds, pt medically cleared for D/C home with previous home [facility]. Pts [facility] to transport her home.
--- NOTE | 2022-08-06 15:33 | PC.NURSE ---
midline was removed by ROBINSON Atkinson. pt is stable and ready to DC
--- NOTE | 2022-08-06 15:44 | PM.PROC ---
Brief Operative Note Date of procedure: 08/06/22 Procedure: Removal of 20g 8cm midline to right
--- NOTE | 2022-08-11 11:54 | P.CDIM_ITS ---
PROVIDER RESPONSE TEXT: To clarify, the appropriate diagnosis supported by the clinical indicators: Clinically unable to determine (explain): unable to determine QUERY TEXT: PHYSICIAN'S DOCUMENTATION REQUEST Date of Query: 08/09/2022 02:22 PM EDT Patient Name: Anju Tanner I Admit Date: 07/29/2022 Dear China Brito, A review of the medical record indicates additional documentation may be needed. Please review below and update the documentation accordingly. Clinical Indicators: The diagnosis of Sepsis was documented on 07/28/22 and 07/30/22but is not consistently noted in subsequ ent documentation. The Discharge Summary does not state Sepsis in the documentation. Please clarify the following: Diagnosis of Sepsis was present on admission and is now resolved Diagnosis of Sepsis was present on admission and is still being monitored, evaluated, or treated Diagnosis of Sepsis was ruled out Diagnosis of Sepsis is still a likely, suspected, probable diagnosis Other (explain)Clinically unable to determine (explain)Thank you, Felicity Bowman RN Use of terms such as suspected, likely, concern for, or probable (associated with a specific diagnosi s that is being evaluated, monitored, or treated as if it exists) are acceptable and can be coded in the inpatient se tting, when documented at the time of discharge. Please use your independent medical judgment in providing your response. THIS QUERY IS PART OF THE PERMANENT MEDICAL RECORD
== END 2022-08-06 16:40 | disposition home health service (06) | DRG 720 ==
LOC: HO.ED 17:22 → HO.EDOVER 23:55 → HO.IMC 07-29 00:12
PROVIDERS: Family Medicine; Internal Medicine Hypertension Specialist; Physician Assistant Medical; Admitting Provider Internal Medicine; Emergency Provider Internal Medicine; PCP Family Medicine; Visit Provider Nurse Practitioner Acute Care
PROC: 05H933Z Insertion of Infusion Device into Right Brachial Vein, Percutaneous Approach (ICD-10-PCS; principal; 2022-08-02 16:30)
DX: A41.9 Sepsis, unspecified organism (principal); J96.21 Acute and chronic respiratory failure with hypoxia; N17.0 Acute kidney failure with tubular necrosis; G93.41 Metabolic encephalopathy; D80.1 Nonfamilial hypogammaglobulinemia; E66.2 Morbid (severe) obesity with alveolar hypoventilation; I24.8 Other forms of acute ischemic heart disease; I95.89 Other hypotension; E87.0 Hyperosmolality and hypernatremia; J45.901 Unspecified asthma with (acute) exacerbation; E87.6 Hypokalemia; E83.42 Hypomagnesemia; J96.22 Acute and chronic respiratory failure with hypercapnia; F39 Unspecified mood [affective] disorder; F11.20 Opioid dependence, uncomplicated; A02.0 Salmonella enteritis; Z16.19 Resistance to other specified beta lactam antibiotics; Z16.29 Resistance to other single specified antibiotic; K82.8 Other specified diseases of gallbladder; I10 Essential (primary) hypertension; E86.0 Dehydration; R00.0 Tachycardia, unspecified; Z99.81 Dependence on supplemental oxygen; Z68.38 Body mass index [BMI] 38.0-38.9, adult; Z87.891 Personal history of nicotine dependence; Z79.4 Long term (current) use of insulin; Z79.84 Long term (current) use of oral hypoglycemic drugs; Z79.52 Long term (current) use of systemic steroids; Z79.899 Other long term (current) drug therapy
CPT/HCPCS: 36410; 36415; 71045; 74176; 76700; 78227; 80048; 80053; 80076; 81001; 82728; 82803; 82947; 83520; 83605; 83690; 83735; 84156; 84165; 84300; 84443; 84478; 84484; 85007; 85025; 85027; 85384; 86021; 86140; 86160; 86704; 86706; 86803; 87040; 87077; 87086; 87186; 87205; 87340; 87389; 87493; 87507; 87522; 89190; 93005; 94640; 94660; 97116; 97162; 99285; A9537; C1751; C1758; J0696; J1642; J1643; J2405; J2543; J2805; J2920; J2930; J3475

== ENCOUNTER 2022-08-21 09:30 | Outpatient (REF) | payer MEDICAID, SELFPAY | END 2022-08-21 09:31 | disposition home or self-care (01) | LOC: HO.MDS 09:30 | PROVIDERS: Visit Provider Hospitalist | DX: D80.1 Nonfamilial hypogammaglobulinemia (principal) | CPT/HCPCS: 96365; 96366; J1569 ==

== ENCOUNTER 2022-09-02 22:45 | Emergency (ER) | payer MEDICAID, SELFPAY ==
--- NOTE | ~2022-09-02 | XR_ITS ---
EXAMINATION: XR CHEST CLINICAL INFORMATION: Shortness of breath COMPARISON: Chest x-ray 08/01/2022 TECHNIQUE: Frontal portable view of the chest was obtained. 11:34 PM FINDINGS: Lungs are clear. No pulmonary vascular congestion. There is no pleural effusion. The heart size is normal. The cardiac and mediastinal contours are normal. There are calcifications of the thoracic aorta. There are multilevel degenerative changes of dorsal spine. Multiple bilateral healed rib fractures. XR/XR chest 1V IMPRESSION: Unremarkable examination.
[2022-09-02 22:54] VITALS: BP 138/76; PULSE 120; O2SAT 97
[2022-09-02 23:01] VITALS: BP 143/66; PULSE 114; RESP 18; TEMP 36.9; O2SAT 958
[2022-09-02 23:13] VITALS: BP 143/66; PULSE 114; RESP 18; O2SAT 96; BMI 37.8
--- NOTE | 2022-09-02 23:22 | ECG_ITS ---
Test Reason : SOB Blood Pressure : / mmHG Vent. Rate : 111 BPM Atrial Rate : 111 BPM P-R Int : 128 ms QRS Dur : 104 ms QT Int : 356 ms P-R-T Axes : 060 028 047 degrees QTc Int : 484 ms Sinus tachycardia Possible Left atrial enlargement Incomplete right bundle branch block Abnormal ECG When compared with ECG of 28-JUL-2022 17:34, Incomplete right bundle branch block has replaced Right bundle branch block Referred By: Jessica Quinones Electronically Signed By:RONALD SCHAFER
--- NOTE | 2022-09-02 23:31 | ED.SOB ---
HPI - SOB/Dyspnea General Chief Complaint: Dyspnea Stated Complaint: sob x2 days,home neb not working,97% on neb per em Time Seen by Provider: 09/02/22 22:48 Source: patient Mode of arrival: EMS Limitations: no limitations History of Present Illness HPI Narrative: Patient comes to the emergency room complaining of wheezing and shortness of breath for couple days. Patient states that she is taking prednisone, is not really working for her. Patient use a nebulization treatment prior to arrival and still feels very short of breath. Denies any chest pain. Known nausea vomiting diarrhea, no recent URI illnesses to her knowledge. Related Data Home Medications Medication Instructions Recorded Confirmed albuterol sulfate 90 mcg/actuation 2 puff inhalation Q4H PRN 12/30/19 07/29/22 aerosol inhaler (ProAir HFA) Shortness Of Breath Or Wheezing loratadine 10 mg tablet (Claritin) 10 mg PO DAILY 12/30/19 07/29/22 montelukast 10 mg tablet 10 mg PO BEDTIME 12/30/19 07/29/22 diltiazem HCl 360 mg capsule,24 360 mg PO DAILY 11/16/20 07/29/22 hr,extended release (Tiadylt ER) roflumilast 500 mcg tablet 500 mcg PO DAILY 11/16/20 07/29/22 (Daliresp) rosuvastatin 5 mg tablet 5 mg PO BEDTIME 11/16/20 07/29/22 insulin lispro 100 unit/mL See Protocol subcut TIDAC 12/14/20 07/29/22 subcutaneous solution (Humalog U-100 Insulin) metformin 500 mg tablet,extended 1,000 mg PO BID 05/18/21 07/29/22 release 24 hr ergocalciferol (vitamin D2) 1,250 1,250 mcg PO QWEEK 06/06/21 07/29/22 mcg (50,000 unit) capsule methadone 10 mg/mL oral concentrate 50 mg PO DAILY 06/06/21 07/29/22 lisinopril 40 mg tablet 40 mg PO DAILY 07/30/21 07/29/22 hydralazine 25 mg tablet 25 mg PO TID 11/02/21 07/29/22 insulin lispro 100 unit/mL 4 unit subcut TIDAC 11/02/21 07/29/22 subcutaneous solution omeprazole 40 mg capsule,delayed 40 mg PO DAILY@0630 11/02/21 07/29/22 release clonazepam 1 mg tablet 1 mg PO BID PRN Anxiety 06/28/22 07/29/22 ibuprofen 600 mg tablet 600 mg PO Q8H PRN Pain 06/28/22 07/29/22 alendronate 70 mg tablet 70 mg PO QWEEK 07/29/22 07/29/22 bupropion HCl 100 mg tablet 100 mg PO DAILY 07/29/22 07/29/22 lamotrigine 150 mg tablet 150 mg PO BID 07/29/22 07/29/22 lidocaine 5 % topical patch 1 patch topical DAILY 07/29/22 07/29/22 sodium chloride 7 % for 4 ml inhalation BID 07/29/22 07/29/22 nebulization Previous Rx's Medication Instructions Recorded salmeterol 50 mcg/dose blister 1 inh inhalation RBID 30 days #60 01/05/22 powder for inhalation (Serevent ea Diskus) simethicone 80 mg chewable tablet 80 mg PO QIDWMHS PRN Abdominal 01/05/22 (Gas Relief (simethicone)) Distention #30 tabs insulin glargine 100 unit/mL 35 unit (0.35 mL) subcut BEDTIME 02/18/22 subcutaneous solution (Lantus #10 mL U-100 Insulin) theophylline 450 mg 450 mg PO Q12H 30 days #60 tabs 05/08/22 tablet,extended release,12 hr arformoterol 15 mcg/2 mL solution 2 ml inhalation Q12H 30 days #120 06/07/22 for nebulization (Brovana) mL tiotropium bromide 18 mcg capsule 1 cap inhalation DAILY #30 ea 07/09/22 with inhalation device (Spiriva with HandiHaler) gabapentin 300 mg capsule 300 mg PO BID #60 caps 07/23/22 cefuroxime axetil 500 mg tablet 500 mg PO BID #28 tabs 08/06/22 budesonide 0.5 mg/2 mL suspension 0.5 mg (2 mL) inhalation BID #120 08/15/22 for nebulization mL prednisone 10 mg tablet 20 mg PO DAILY #30 tabs 08/23/22 ipratropium 0.5 mg-albuterol 3 mg 3 ml PO Q4H PRN for wheezing #540 09/02/22 (2.5 mg base)/3 mL nebulization mL soln prednisone 50 mg tablet 50 mg PO DAILY #4 tabs 09/03/22 Allergies Allergy/AdvReac Type Severity Reaction Status Date / Time No Known Allergies Allergy Verified 05/27/22 10:15 [No Known Allergies*] Review of Systems Review of Systems: Constitutional : No Weight loss, No Fever, No Chills, No Night Sweats, No Fatigue, No Malaise ENT/Mouth : No Hearing loss, No Ear Pain, No Nasal Congestion, No Sinus Pain, No Hoarseness, No sore throat, No Rhinorrhea, No Swallowing Difficulty Eyes: No Eye Pain, No Swelling, No Redness, No Foreign Body, No Discharge, No Vision Changes Cardiovascular : No Chest Pain, No SOB, No Dyspnea on Exertion, No Orthopnea, No Edema, No Palpitations Respiratory : Complaining of cough without sputum, wheezing, shortness of breath despite nebulization treatments and being on prednisone Gastrointestinal : No Nausea, No Vomiting, No Diarrhea, No Constipation, No abdominal Pain, No Hematochezia, No Melena Genitourinary : no irregular bleeding, No Dysuria, No Urinary Frequency, No Hematuria, No Urinary Incontinence, No Urgency, No Flank Pain, No Urinary Flow Changes, No Hesitancy Musculoskeletal : No joint pain, No Myalgias, No Joint Swelling Skin : No Skin Lesions, No rash Neuro : No Weakness, No Numbness, No Paresthesias, No Loss of Consciousness, No Dizziness, No Headache Psych : No Anxiety/Panic, No Depression, No SI/HI/AH/VH, No Social Issues, Heme/Lymph: No Bruising, No Bleeding,No Lymphadenopathy Endocrine : No Polyuria, No Polydipsia, No Temperature Intolerance [facility] Past Medical History Medical History Abdominal pain Abnormal chest x-ray Acute and chronic respiratory failure with hypercapnia Acute respiratory failure Aspiration into airway Asthma-COPD overlap syndrome Bacteremia Cellulitis Chronic constipation Chronic respiratory failure Chronic respiratory failure Congestive heart failure COPD (chronic obstructive pulmonary disease) COPD exacerbation COPD mixed type Cor pulmonale Diabetes mellitus Essential hypertension Hyperlipidemia, unspecified Hypertensive cardiovascular disease Hypogammaglobulinemia Leukocytosis Limb swelling Morbid obesity Morbid obesity Opioid dependence CHITO (obstructive sleep apnea) Poor dentition Pulmonary congestion Pulmonary nodule Rib fractures Status asthmaticus with COPD (chronic obstructive pulmonary disease) Tobacco abuse Type 2 diabetes mellitus Type 2 diabetes mellitus with unspecified complications Vomiting Surgical History H/O tubal ligation Family History Family History Father Diabetes Other Asthma Social History Social History Household Members: Family Household Members Other:: daughter Housing: Apartment Do you presently have visiting nurse or other home services: Yes Unable to assess alcohol history related to: Unknown Alcohol intake: never Patient Tobacco Use Status: Former Tobacco user Quit Date: February 2022 Tobacco use type: Cigarette Cigarettes Per Day: 1 Years Smoked: 35 Smoked in Last 30 Days: No e-Cigarette/Vaping Use: Currently Using Second Hand Smoke Exposure: No Use of substances other than those prescribed or required for medical reasons: No Substance Use Type: Opiates Advance Directives: Yes Advance Directives on File: Yes Advance Directives Date on File: 06/12/21 Patient : No service: No Current occupational status: unemployed and disabled Physical Exam Vital Signs: Vital Signs: Last Vital Signs Temp 97.9 F 09/03/22 00:05 Pulse 107 H 09/03/22 00:05 Resp 22 H 09/03/22 00:05 BP 140/75 H 09/03/22 00:05 Pulse Ox 97 09/03/22 00:05 O2 Del Method Aerosol Mask 09/03/22 00:05 O2 Flow Rate 2 09/02/22 23:01 BMI result Body Mass Index 37.8 Const: Other: Appearance: Alert. Oriented X3. No acute distress. Eyes: Pupils equal, round and reactive to light. ENT: Pharynx normal. Neck: Normal inspection. Neck supple. No lymph nodes noted. No crepitus CVS: Normal heart rate and rhythm. Pulses normal. Normal S1 and S2 Respiratory: No respiratory distress. Patient has diminished breath sounds, wheezing Abdomen: Soft and nontender. No rigidity. No distention. Skin: Skin warm and dry. Normal skin color. Normal skin turgor. Extremities: No lower extremity edema. No Lacerations. No Rash Neuro: Oriented X 3. No motor deficit. No sensory deficit. Moving all extremities. No slurred speech. CN 2 through 12 grossly intact Psych: calm, cooperative, normal affect Course Course Course Narrative: -all of patient's labs and imaging pending -patient receiving a nebulization treatment, IV magnesium and Solu-Medrol. Per EMS, patient did not receive any medications on the way to the hospital Medications Administered Discontinued Medications Generic Name Dose Route Start Last Admin Trade Name Jaylan PRN Reason Stop Dose Admin Albuterol Sulfate 10 mg 09/02/22 23:27 09/02/22 23:44 Albuterol Sulfate (0.083%) 2.5 Mg/3 Ml Vial.Neb INHALE 09/02/22 23:28 10 mg ONCE ONE Administration Magnesium Sulfate 2 gm in 50 mls @ 25 mls/hr 09/02/22 23:27 09/03/22 00:22 Magnesium Sulfate/H2o IV 09/03/22 01:26 25 mls/hr ONCE ONE Administration Methylprednisolone Sodium Succinate 125 mg 09/02/22 23:27 09/03/22 00:22 Methylprednisolone Sod Succ 125 Mg/2 Ml Vial IVPUSH 09/02/22 23:28 125 mg ONCE ONE Administration Medical Decision Making Medical Decision Making [facility] Narrative: -patient receives about an hour long treatment of albuterol, Solu-Medrol, magnesium, patient states that she feels much better, almost back at baseline. On auscultation, patient is moving air much better, wheezing is still present. Patient is Requesting 1 more nebulization treatment. -patient has history of significant decompensation with asthma COPD, admission was considered. -Patient states that she feels well enough to go home and would like to not be admitted -patient given 1 more dose of albuterol. -patient states that she has enough albuterol at home, only requesting a prescription for prednisone. Admission/Observation Consideration of admission/observation: Escalation of care including admission/observation considered Lab Data [facility] Lab Attestation statement: I reviewed the patient's lab results. 09/03/22 00:01 09/03/22 00:01 Labs: Lab Results 09/03/22 09/03/22 09/03/22 Range/Units 00:01 00:01 00:01 WBC 12.2 H (4.8-10.8) X10*3/uL RBC 4.16 L (4.20-5.50) X10*6/uL Hgb 11.8 L (12.0-16.0) g/dl Hct 37.5 (37.0-47.0) % MCV 90.1 (80.0-98.0) fL MCH 28.4 (27.0-33.0) pg MCHC 31.5 (31.0-35.0) g/dl RDW 13.3 (11.0-16.0) % Plt Count 243 (160-400) X10*3/uL MPV 9.9 (9.4-12.3) fL Immature Gran % (Auto) 0.9 H (0.0-0.4) % Neut % (Auto) 87.9 H (45-73) % Lymph % (Auto) 5.6 L (20-40) % [place] % (Auto) 5.4 (2-11) % Eos % (Auto) 0.0 (0-4) % Baso % (Auto) 0.2 (0-2) % Lymph # (Auto) 0.7 L (1.2-4.9) X10*3/uL [place] # (Auto) 0.7 (0.1-1.2) X10*3/uL Eos # (Auto) 0.0 (0.0-0.4) X10*3/uL Baso # (Auto) 0.0 (0.0-0.2) X10*3/uL Abs Immat Gran (auto) 0.11 H (0.00-0.03) X10*3/uL Absolute Neuts (auto) 10.8 H (2.0-8.3) x10*3/uL Absolute Nucleated RBC 0.000 (0.0-0.012) X10*3/uL Nucleated RBC % (auto) 0.0 (0.0-0.2) /100WBC Smear Tech's Comments VERIFIED PT (10.0-13.1) SEC INR (0.9-1.1) VBG pH (7.32-7.43) VBG pCO2 mmHg VBG pO2 mmHg VBG HCO3 (22-26) mmol/L VBG O2 Saturation % VBG Base Excess mmol/L Sodium 141 (135-145) mmol/L Potassium 4.4 (3.3-5.1) mmol/L Chloride 98 (96-108) mmol/L Carbon Dioxide 30 H (22-29) mmol/L Anion Gap 17 (12-20) BUN 16 (9-16) mg/dL Creatinine 0.69 (0.5-1.4) mg/dL Estim Creat Clear Calc 97.8 Estimated GFR > 60 Random Glucose 112 (60-115) mg/dL Lactic Acid (0.5-2.0) mmol/L Calcium 10.4 H D (8.4-10.2) mg/dL Troponin I High Sens 6.3 D (<3.5-17.0) ng/L B-Natriuretic Peptide (<100) pg/mL 09/03/22 09/03/22 09/03/22 Range/Units 00:01 00:06 00:25 WBC (4.8-10.8) X10*3/uL RBC (4.20-5.50) X10*6/uL Hgb (12.0-16.0) g/dl Hct (37.0-47.0) % MCV (80.0-98.0) fL MCH (27.0-33.0) pg MCHC (31.0-35.0) g/dl RDW (11.0-16.0) % Plt Count (160-400) X10*3/uL MPV (9.4-12.3) fL Immature Gran % (Auto) (0.0-0.4) % Neut % (Auto) (45-73) % Lymph % (Auto) (20-40) % [place] % (Auto) (2-11) % Eos % (Auto) (0-4) % Baso % (Auto) (0-2) % Lymph # (Auto) (1.2-4.9) X10*3/uL [place] # (Auto) (0.1-1.2) X10*3/uL Eos # (Auto) (0.0-0.4) X10*3/uL Baso # (Auto) (0.0-0.2) X10*3/uL Abs Immat Gran (auto) (0.00-0.03) X10*3/uL Absolute Neuts (auto) (2.0-8.3) x10*3/uL Absolute Nucleated RBC (0.0-0.012) X10*3/uL Nucleated RBC % (auto) (0.0-0.2) /100WBC Smear Tech's Comments PT 10.5 (10.0-13.1) SEC INR 0.9 (0.9-1.1) VBG pH 7.50 H (7.32-7.43) VBG pCO2 51 mmHg VBG pO2 74 mmHg VBG HCO3 40 H (22-26) mmol/L VBG O2 Saturation 96.0 % VBG Base Excess 15.6 mmol/L Sodium (135-145) mmol/L Potassium (3.3-5.1) mmol/L Chloride (96-108) mmol/L Carbon Dioxide (22-29) mmol/L Anion Gap (12-20) BUN (9-16) mg/dL Creatinine (0.5-1.4) mg/dL Estim Creat Clear Calc Estimated GFR Random Glucose (60-115) mg/dL Lactic Acid (0.5-2.0) mmol/L Calcium (8.4-10.2) mg/dL Troponin I High Sens (<3.5-17.0) ng/L B-Natriuretic Peptide 15 (<100) pg/mL 09/03/22 Range/Units 00:25 WBC (4.8-10.8) X10*3/uL RBC (4.20-5.50) X10*6/uL Hgb (12.0-16.0) g/dl Hct (37.0-47.0) % MCV (80.0-98.0) fL MCH (27.0-33.0) pg MCHC (31.0-35.0) g/dl RDW (11.0-16.0) % Plt Count (160-400) X10*3/uL MPV (9.4-12.3) fL Immature Gran % (Auto) (0.0-0.4) % Neut % (Auto) (45-73) % Lymph % (Auto) (20-40) % [place] % (Auto) (2-11) % Eos % (Auto) (0-4) % Baso % (Auto) (0-2) % Lymph # (Auto) (1.2-4.9) X10*3/uL [place] # (Auto) (0.1-1.2) X10*3/uL Eos # (Auto) (0.0-0.4) X10*3/uL Baso # (Auto) (0.0-0.2) X10*3/uL Abs Immat Gran (auto) (0.00-0.03) X10*3/uL Absolute Neuts (auto) (2.0-8.3) x10*3/uL Absolute Nucleated RBC (0.0-0.012) X10*3/uL Nucleated RBC % (auto) (0.0-0.2) /100WBC Smear Tech's Comments PT (10.0-13.1) SEC INR (0.9-1.1) VBG pH (7.32-7.43) VBG pCO2 mmHg VBG pO2 mmHg VBG HCO3 (22-26) mmol/L VBG O2 Saturation % VBG Base Excess mmol/L Sodium (135-145) mmol/L Potassium (3.3-5.1) mmol/L Chloride (96-108) mmol/L Carbon Dioxide (22-29) mmol/L Anion Gap (12-20) BUN (9-16) mg/dL Creatinine (0.5-1.4) mg/dL Estim Creat Clear Calc Estimated GFR Random Glucose (60-115) mg/dL Lactic Acid 1.3 (0.5-2.0) mmol/L Calcium (8.4-10.2) mg/dL Troponin I High Sens (<3.5-17.0) ng/L B-Natriuretic Peptide (<100) pg/mL Radiology Impression Discussion of test interpretation with radiology: I have reviewed the radiologist's reading. Radiologist Impression: FINDINGS: ?Lungs are clear. No pulmonary vascular congestion. There is no pleural effusion. The heart size is normal. The cardiac and mediastinal contours are normal. There are calcifications of the thoracic aorta. There are multilevel degenerative changes of dorsal spine.? ? Multiple bilateral healed rib fractures. XR/XR chest 1V IMPRESSION: Unremarkable examination. ? Discharge Plan Discharge Clinical Impression: Asthma with exacerbation Patient Disposition: Home, Self-Care Instructions: Asthma (ED) Additional Instructions: Please follow-up with your primary care physician tomorrow. If you have any worsening or new symptoms, please return to the emergency room or call 911 Prescriptions: New prednisone 50 mg tablet 50 mg PO DAILY Qty: 4 0RF No Action Brovana 15 mcg/2 mL solution for nebulization 2 ml inhalation Q12H 30 Days Qty: 120 11RF Spiriva with HandiHaler 18 mcg capsule, w/inhalation device 1 cap inhalation DAILY Qty: 30 11RF gabapentin 300 mg capsule 300 mg PO BID Qty: 60 3RF budesonide 0.5 mg/2 mL suspension for nebulization 0.5 mg inhalation BID Qty: 120 11RF prednisone 10 mg tablet 20 mg PO DAILY Qty: 30 0RF ipratropium-albuterol 0.5 mg-3 mg(2.5 mg base)/3 mL solution for nebulization 3 ml PO Q4H PRN (Reason: for wheezing) Qty: 540 6RF diltiazem HCl [Tiadylt ER] 360 mg capsule,extended release 24 hr 360 mg PO DAILY rosuvastatin 5 mg tablet 5 mg PO BEDTIME roflumilast [Daliresp] 500 mcg tablet 500 mcg PO DAILY insulin lispro [Humalog U-100 Insulin] 100 unit/mL solution See Protocol subcut TIDAC Protocol: Insulin Correction Scale Less than or equal to 110 ---- Give (units): 0 111 to 150 Give (units): 0 151 to 200 Give (units): 2 201 to 250 Give (units): 4 251 to 300 Give (units): 6 301 to 350 Give (units): 8 Greater than 350 Give (units): 10 Call MD if Blood Glucose > : 350 metformin 500 mg tablet extended release 24 hr 1,000 mg PO BID hydralazine 25 mg tablet 25 mg PO TID insulin lispro 100 unit/mL solution 4 unit subcut TIDAC omeprazole 40 mg capsule,delayed release(DR/EC) 40 mg PO DAILY@0630 insulin glargine [Lantus U-100 Insulin] 100 unit/mL solution 35 unit subcut BEDTIME Qty: 10 0RF methadone 10 mg/mL Concentrate 50 mg PO DAILY ergocalciferol (vitamin D2) 1,250 mcg (50,000 unit) capsule 1,250 mcg PO QWEEK lisinopril 40 mg tablet 40 mg PO DAILY Serevent Diskus 50 mcg/dose Blister With Device 1 inh inhalation RBID 30 Days Qty: 60 2RF simethicone [Gas Relief (simethicone)] 80 mg Tablet,Chewable 80 mg PO QIDWMHS PRN (Reason: Abdominal Distention) Qty: 30 0RF lamotrigine 150 mg tablet 150 mg PO BID bupropion HCl 100 mg tablet 100 mg PO DAILY sodium chloride 7 % solution for nebulization 4 ml inhalation BID alendronate 70 mg tablet 70 mg PO QWEEK lidocaine 5 % adhesive patch,medicated 1 patch topical DAILY Rx Instructions: APPLY FOR 12 HOURS THEN REMOVE FOR 12 HOURS cefuroxime axetil 500 mg tablet 500 mg PO BID Qty: 28 0RF clonazepam 1 mg tablet 1 mg PO BID PRN (Reason: Anxiety) ibuprofen 600 mg tablet 600 mg PO Q8H PRN (Reason: Pain) montelukast 10 mg tablet 10 mg PO BEDTIME albuterol sulfate [ProAir HFA] 90 mcg/actuation HFA aerosol inhaler 2 puff inhalation Q4H PRN (Reason: Shortness Of Breath Or Wheezing) loratadine [Claritin] 10 mg tablet 10 mg PO DAILY theophylline 450 mg tablet extended release 12 hr 450 mg PO Q12H 30 Days Qty: 60 6RF
[2022-09-02] MEDS: Albuterol Sulfate (0.083%) 2.5 MG/3 ML VIAL.NEB 10 MG INHALE (23:44)
[2022-09-02 23:50] VITALS: PULSE 104; RESP 20; O2SAT 95
[2022-09-03 00:05] VITALS: BP 140/75; PULSE 107; RESP 22; TEMP 36.6; O2SAT 97
[2022-09-03 00:13] LABS: VBG Base Excess 15.6 mmol/L; VBG HCO3 40 mmol/L (22-26); VBG pCO2 51 mmHg; VBG pO2 74 mmHg
[2022-09-03 00:14] LABS: Basophils Percent Auto 0.2 % (0-2); Hematocrit 37.5 % (37.0-47.0); Hemoglobin 11.8 g/dl (12.0-16.0); Imm Gran Abs Auto 0.11 X10*3/uL (0.00-0.03); Imm Gran Pct Auto 0.9 % (0.0-0.4); Lymphocytes Absolute Auto 0.7 X10*3/uL (1.2-4.9); Lymphocytes Percent Auto 5.6 % (20-40); MANUAL DIFF FLAG SCAN; Mean Corpuscular HGB Conc 31.5 g/dl (31.0-35.0); Mean Corpuscular Hemoglobin 28.4 pg (27.0-33.0); Mean Corpuscular Volume 90.1 fL (80.0-98.0); Mean Platelet Volume 9.9 fL (9.4-12.3); Monocytes Absolute Auto 0.7 X10*3/uL (0.1-1.2); Monocytes Percent Auto 5.4 % (2-11); Neutrophils Absolute Auto 10.8 x10*3/uL (2.0-8.3); Neutrophils Percent Auto 87.9 % (45-73); PLT CLUMP 1; Red Blood Count 4.16 X10*6/uL (4.20-5.50); Red Cell Distribution Width 13.3 % (11.0-16.0); SCAN SMEAR FLAG 1
[2022-09-03 00:15] LABS: Platelet Count 243 X10*3/uL (160-400); SLIDE REVIEW VERIFIED; Venous Blood Gas Refer to POC result; White Blood Count 12.2 X10*3/uL (4.8-10.8)
[2022-09-03] MEDS: methylPREDNISolone Sod Succ 125 MG/2 ML VIAL IVPUSH (00:22)
[2022-09-03] MEDS: Magnesium Sulfate/H2O 2 GM/50 ML PIGGYBACK IV (00:22)
[2022-09-03 00:28] LABS: Troponin-I High Sensitivity 6.3 ng/L (<3.5-17.0)
[2022-09-03 00:34] LABS: Anion Gap 17 (12-20); Blood Urea Nitrogen 16 mg/dL (9-16); Calcium 10.4 mg/dL (8.4-10.2); Carbon Dioxide 30 mmol/L (22-29); Chloride 98 mmol/L (96-108); Creatinine Clr Calc Pharmacy 97.8; Estimated Glomerular Filt Rate > 60; Glucose Random 112 mg/dL (60-115); Potassium 4.4 mmol/L (3.3-5.1); Sodium 141 mmol/L (135-145)
[2022-09-03 00:37] LABS: B Type Natriuretic Peptide 15 pg/mL (<100)
[2022-09-03 00:40] LABS: INTERNATIONAL NORM RATIO 0.9 (0.9-1.1); Prothrombin Time 10.5 SEC (10.0-13.1)
[2022-09-03 00:44] LABS: Lactic Acid 1.3 mmol/L (0.5-2.0)
[2022-09-03] MEDS: Albuterol Sulfate (0.083%) 2.5 MG/3 ML VIAL.NEB 10 MG INHALE (02:49)
== END 2022-09-03 03:32 | disposition home or self-care (01) ==
PROVIDERS: Emergency Provider Emergency Medicine; PCP Family Medicine
DX: J45.901 Unspecified asthma with (acute) exacerbation (principal); R00.0 Tachycardia, unspecified; R06.02 Shortness of breath; Z87.891 Personal history of nicotine dependence; Z79.899 Other long term (current) drug therapy
CPT/HCPCS: 36415; 71045; 80048; 82803; 83605; 83880; 84484; 85025; 85610; 87040; 93005; 94640; 96365; 96366; 96375; 99285; J2930; J3475

== ENCOUNTER 2022-09-16 21:06 | Emergency (ER) | payer MEDICAID, SELFPAY ==
[2022-09-16 21:10] VITALS: BP 134/76; PULSE 122; O2SAT 96
[2022-09-16 21:15] VITALS: BP 139/116; PULSE 123; RESP 20; TEMP 37; O2SAT 90; BMI 34.8
--- NOTE | 2022-09-16 22:24 | ED.GENADULT ---
HPI - General Adult General Chief complaint: Dyspnea Stated complaint: chest pain Time Seen by Provider: 09/16/22 22:08 Source: patient, RN notes reviewed, old records reviewed and official court interpreter Mode of arrival: EMS Limitations: language barrier History of Present Illness HPI narrative: 52-year-old female with past medical history significant for obesity, asthma, COPD, CHF on chronic O2 and home BiPAP, diabetes presents for evaluation of chest pain and shortness of breath. Patient reports increasing chest pain since this morning. She is wide awake and answering questions but states to me that she feels like her ?CO2 was getting higher. ? Denies any fevers, chills or increase in her cough The patient also reports that she is on chronic prednisone 20 mg daily Denies any abdominal pain, nausea vomiting Denies any fevers, chills She reports chronic right lower leg swelling compared to left but denies any changes to her lower extremity edema Related Data Home Medications Medication Instructions Recorded Confirmed albuterol sulfate 90 mcg/actuation 2 puff inhalation Q4H PRN 12/30/19 07/29/22 aerosol inhaler (ProAir HFA) Shortness Of Breath Or Wheezing loratadine 10 mg tablet (Claritin) 10 mg PO DAILY 12/30/19 07/29/22 montelukast 10 mg tablet 10 mg PO BEDTIME 12/30/19 07/29/22 diltiazem HCl 360 mg capsule,24 360 mg PO DAILY 11/16/20 07/29/22 hr,extended release (Tiadylt ER) roflumilast 500 mcg tablet 500 mcg PO DAILY 11/16/20 07/29/22 (Daliresp) rosuvastatin 5 mg tablet 5 mg PO BEDTIME 11/16/20 07/29/22 insulin lispro 100 unit/mL See Protocol subcut TIDAC 12/14/20 07/29/22 subcutaneous solution (Humalog U-100 Insulin) metformin 500 mg tablet,extended 1,000 mg PO BID 05/18/21 07/29/22 release 24 hr ergocalciferol (vitamin D2) 1,250 1,250 mcg PO QWEEK 06/06/21 07/29/22 mcg (50,000 unit) capsule methadone 10 mg/mL oral concentrate 50 mg PO DAILY 06/06/21 07/29/22 lisinopril 40 mg tablet 40 mg PO DAILY 07/30/21 07/29/22 hydralazine 25 mg tablet 25 mg PO TID 11/02/21 07/29/22 insulin lispro 100 unit/mL 4 unit subcut TIDAC 11/02/21 07/29/22 subcutaneous solution omeprazole 40 mg capsule,delayed 40 mg PO DAILY@0630 11/02/21 07/29/22 release clonazepam 1 mg tablet 1 mg PO BID PRN Anxiety 06/28/22 07/29/22 ibuprofen 600 mg tablet 600 mg PO Q8H PRN Pain 06/28/22 07/29/22 alendronate 70 mg tablet 70 mg PO QWEEK 07/29/22 07/29/22 bupropion HCl 100 mg tablet 100 mg PO DAILY 07/29/22 07/29/22 lamotrigine 150 mg tablet 150 mg PO BID 07/29/22 07/29/22 lidocaine 5 % topical patch 1 patch topical DAILY 07/29/22 07/29/22 sodium chloride 7 % for 4 ml inhalation BID 07/29/22 07/29/22 nebulization Previous Rx's Medication Instructions Recorded salmeterol 50 mcg/dose blister 1 inh inhalation RBID 30 days #60 01/05/22 powder for inhalation (Serevent ea Diskus) simethicone 80 mg chewable tablet 80 mg PO QIDWMHS PRN Abdominal 01/05/22 (Gas Relief (simethicone)) Distention #30 tabs insulin glargine 100 unit/mL 35 unit (0.35 mL) subcut BEDTIME 02/18/22 subcutaneous solution (Lantus #10 mL U-100 Insulin) theophylline 450 mg 450 mg PO Q12H 30 days #60 tabs 05/08/22 tablet,extended release,12 hr arformoterol 15 mcg/2 mL solution 2 ml inhalation Q12H 30 days #120 06/07/22 for nebulization (Brovana) mL tiotropium bromide 18 mcg capsule 1 cap inhalation DAILY #30 ea 07/09/22 with inhalation device (Spiriva with HandiHaler) gabapentin 300 mg capsule 300 mg PO BID #60 caps 07/23/22 cefuroxime axetil 500 mg tablet 500 mg PO BID #28 tabs 08/06/22 budesonide 0.5 mg/2 mL suspension 0.5 mg (2 mL) inhalation BID #120 08/15/22 for nebulization mL prednisone 10 mg tablet 20 mg PO DAILY #30 tabs 08/23/22 ipratropium 0.5 mg-albuterol 3 mg 3 ml PO Q4H PRN for wheezing #540 09/02/22 (2.5 mg base)/3 mL nebulization mL soln prednisone 50 mg tablet 50 mg PO DAILY #4 tabs 09/03/22 prednisone 10 mg tablet See Rx Instructions PO DAILY 18 09/06/22 days #63 tabs prednisone 20 mg tablet 40 mg PO DAILY #8 tabs 09/17/22 Allergies Allergy/AdvReac Type Severity Reaction Status Date / Time No Known Allergies Allergy Verified 05/27/22 10:15 [No Known Allergies*] Review of Systems Constitutional: Constitutional: Denies chills, Denies fever(s), Denies headache(s), Reports lethargy and Reports malaise ENT: Denies headache(s) Cardiovascular: Cardiovascular: Reports chest pain at rest and Reports dyspnea Respiratory: Respiratory: Denies cough and Reports dyspnea Gastrointestinal: Gastrointestinal: Denies abdominal pain, Denies nausea and Denies vomiting Integumentary/Breasts: Skin/Breast: Denies rash Neurologic: Denies headache(s) PMFSH Past Medical History Medical History Abdominal pain Abnormal chest x-ray Acute and chronic respiratory failure with hypercapnia Acute respiratory failure Aspiration into airway Asthma-COPD overlap syndrome Bacteremia Cellulitis Chronic constipation Chronic respiratory failure Chronic respiratory failure Congestive heart failure COPD (chronic obstructive pulmonary disease) COPD exacerbation COPD mixed type Cor pulmonale Diabetes mellitus Essential hypertension Hyperlipidemia, unspecified Hypertensive cardiovascular disease Hypogammaglobulinemia Leukocytosis Limb swelling Morbid obesity Morbid obesity Opioid dependence CHITO (obstructive sleep apnea) Poor dentition Pulmonary congestion Pulmonary nodule Rib fractures Status asthmaticus with COPD (chronic obstructive pulmonary disease) Tobacco abuse Type 2 diabetes mellitus Type 2 diabetes mellitus with unspecified complications Vomiting Surgical History H/O tubal ligation Family History Family History Father Diabetes Other Asthma Social History Social History Household Members: Family Household Members Other:: daughter Housing: Apartment Do you presently have visiting nurse or other home services: Yes Unable to assess alcohol history related to: Unknown Alcohol intake: never Patient Tobacco Use Status: Former Tobacco user Quit Date: February 2022 Tobacco use type: Cigarette Cigarettes Per Day: 1 Years Smoked: 35 e-Cigarette/Vaping Use: Currently Using Second Hand Smoke Exposure: No Substance Use Type: Opiates Advance Directives: Yes Advance Directives on File: Yes Advance Directives Date on File: 06/12/21 service: No Current occupational status: unemployed and disabled Physical Exam ED Vital Signs: Vital Signs - 24 hr 09/16/22 21:15 09/16/22 22:40 09/16/22 23:49 Temperature 98.6 F 98.6 F Pulse Rate 123 H 113 H 125 H Respiratory Rate 20 18 20 Blood Pressure 139/116 H 150/94 H Pulse Oximetry 90 L 92 Oxygen Delivery Method Nasal Cannula Nasal Cannula Oxygen Flow Rate 2 BMI result Body Mass Index 34.8 Const General: comfortable, no acute distress, alert and awake Nutritional Appearance: well nourished Orientation/consciousness: patient oriented x3 HENMT Head: Yes normocephalic and Yes atraumatic Eyes Eyelids: Yes eyelids normal Conjunctivae: conjunctivae normal Sclerae: sclerae normal Corneas: corneas normal Pupils: Equal, round and reactive pupils present EOM: EOMs intact bilaterally Neck Neck: Yes full ROM Resp Other: Decreased air movement throughout, faint expiratory wheeze bilaterally Effort & Inspection: normal respiratory effort, able to speak in complete sentences and not labored Cardio Other: 1+ nonpitting edema to the right lower extremity. No left lower extremity edema Rate: regular rate Rhythm: regular rhythm GI Inspection: No distended Palpation (GI): Soft to palpation, not firm, nontender, no guarding and not rigid Auscultation: normoactive bowel sounds Skin General skin exam: no rashes or lesions noted and elasticity normal Neuro General: patient oriented x3 Cranial nerves: Yes Equal, round and reactive pupils present and Yes Bilaterally intact EOM present Cognition (Neuro): normal cognition Extrem Other: Moving all extremities well without any obvious deformities Course Reevaluation(s) Reevaluation #1: Patient's labs show a normal BNP and the patient remains tachycardic, no evidence of congestive heart failure will treat with IV fluids. She is likely also tachycardic due to the albuterol she has received. However her respiratory status has improved since the DuoNeb treatment still awaiting CTA. I was able to place a peripheral ultrasound IV in the left upper arm Time: 00:43 Reevaluation #2: Patient's workup is quite reassuring. She does have chronic COPD however her labs are quite consistent with her baseline. She is somewhat tachycardic but does not a PE, has no sign of infectious process. She likely has a COPD exacerbation. Will give her a burst course of prednisone 40 mg daily to increase her total to 60 mg daily for the next 5 days. She for not have any evidence of pneumonia, denies any change in her cough or sputum production. Will not give additional antibiotics at this time. The patient will follow up her PCP. The patient does state that she is aware of her rib fractures and states there from coughing, denies any other trauma Time: 01:59 Medications Administered Discontinued Medications Generic Name Dose Route Start Last Admin Trade Name Freq PRN Reason Stop Dose Admin Albuterol Sulfate 5 mg 09/16/22 22:34 09/16/22 22:38 Albuterol Sulfate (0.083%) 2.5 Mg/3 Ml Vial.Neb INHALE 09/16/22 22:35 5 mg ONCE ONE Administration Sodium Chloride 1,000 mls @ 999 mls/hr 09/17/22 00:45 09/17/22 01:06 Ns IV 09/17/22 01:45 999 mls/hr .Q1H1M ANA Administration Iohexol 65 ml 09/17/22 00:53 09/17/22 00:53 Iohexol 350 Mg/Ml 100 Ml Infus..Btl IV 09/17/22 00:54 65 ml ONCE ONE Administration Ipratropium [place] 0.5 mg 09/16/22 22:34 09/16/22 22:39 Ipratropium [place] 0.5 Mg/2.5 Ml Solution INHALE 09/16/22 22:35 0.5 mg ONCE ONE Administration Medical Decision Making Medical Decision Making [facility] Narrative: 52-year-old female with multiple comorbidities presents for evaluation of shortness of breath and chest tightness. She is noted to be hypoxic to 90% on room air but is 95% on her baseline 2 L. she is tachycardic about 120. Will get an EKG read appears sinus on monitor. Will get labs, ABG and given the patient's chest pain, tachycardia hypoxia a CT of the chest to rule out PE. Differential Diagnosis Chest pain COPD CHF PE Bronchitis Viral syndrome Hypercapnia Admission/Observation Consideration of admission/observation: Escalation of care including admission/observation considered Lab Data MDM Lab Attestation statement: I reviewed the patient's lab results. Patient has a mild leukocytosis which may be related to her chronic prednisone use. She is not anemic even though she usually is. She may be hemoconcentrated. Her BUN is slightly elevated to 18 also supporting hemoconcentration and slight dehydration. Patient's glucose is elevated to 119, but no evidence of DKA 09/16/22 22:53 09/16/22 22:54 Labs: Lab Results 09/16/22 09/16/22 09/16/22 Range/Units 16:59 22:53 22:53 WBC 13.0 H (4.8-10.8) X10*3/uL RBC 4.51 (4.20-5.50) X10*6/uL Hgb 12.9 (12.0-16.0) g/dl Hct 41.4 (37.0-47.0) % MCV 91.8 (80.0-98.0) fL MCH 28.6 (27.0-33.0) pg MCHC 31.2 (31.0-35.0) g/dl RDW 14.0 (11.0-16.0) % Plt Count 312 D (160-400) X10*3/uL MPV 9.3 L (9.4-12.3) fL Immature Gran % (Auto) 0.8 H (0.0-0.4) % Neut % (Auto) 79.7 H (45-73) % Lymph % (Auto) 9.6 L (20-40) % [place] % (Auto) 9.1 (2-11) % Eos % (Auto) 0.5 (0-4) % Baso % (Auto) 0.3 (0-2) % Lymph # (Auto) 1.3 (1.2-4.9) X10*3/uL [place] # (Auto) 1.2 (0.1-1.2) X10*3/uL Eos # (Auto) 0.1 (0.0-0.4) X10*3/uL Baso # (Auto) 0.0 (0.0-0.2) X10*3/uL Abs Immat Gran (auto) 0.11 H (0.00-0.03) X10*3/uL Absolute Neuts (auto) 10.4 H (2.0-8.3) x10*3/uL Absolute Nucleated RBC 0.000 (0.0-0.012) X10*3/uL Nucleated RBC % (auto) 0.0 (0.0-0.2) /100WBC Smear Tech's Comments VERIFIED PT 9.8 L (10.0-13.1) SEC INR 0.9 (0.9-1.1) APTT 22.5 L (26.0-36.4) SEC VBG pH (7.32-7.43) VBG pCO2 mmHg VBG pO2 mmHg VBG HCO3 (22-26) mmol/L VBG O2 Saturation % VBG Base Excess mmol/L Sodium (135-145) mmol/L Potassium (3.3-5.1) mmol/L Chloride (96-108) mmol/L Carbon Dioxide (22-29) mmol/L Anion Gap (12-20) BUN (9-16) mg/dL Creatinine (0.5-1.4) mg/dL Estim Creat Clear Calc Estimated GFR Random Glucose (60-115) mg/dL Calcium (8.4-10.2) mg/dL Total Bilirubin (0.0-1.0) mg/dL AST (5-31) U/L ALT (0-31) U/L Alkaline Phosphatase (39-117) U/L Troponin I High Sens 9.1 (<3.5-17.0) ng/L B-Natriuretic Peptide (<100) pg/mL Total Protein (6.5-8.0) g/dL Albumin (3.5-5.0) g/dL Lipase (8-78) U/L Influenza Type A (PCR) (Negative) Influenza Type B (PCR) (Negative) RSV RNA Qual (PCR) (Negative) SARS-CoV-2 RNA (RT-PCR) (Negative) 07/03/23 07/03/23 07/03/23 Range/Units 22:53 22:53 22:54 WBC (4.8-10.8) X10*3/uL RBC (4.20-5.50) X10*6/uL Hgb (12.0-16.0) g/dl Hct (37.0-47.0) % MCV (80.0-98.0) fL MCH (27.0-33.0) pg MCHC (31.0-35.0) g/dl RDW (11.0-16.0) % Plt Count (160-400) X10*3/uL MPV (9.4-12.3) fL Immature Gran % (Auto) (0.0-0.4) % Neut % (Auto) (45-73) % Lymph % (Auto) (20-40) % [place] % (Auto) (2-11) % Eos % (Auto) (0-4) % Baso % (Auto) (0-2) % Lymph # (Auto) (1.2-4.9) X10*3/uL [place] # (Auto) (0.1-1.2) X10*3/uL Eos # (Auto) (0.0-0.4) X10*3/uL Baso # (Auto) (0.0-0.2) X10*3/uL Abs Immat Gran (auto) (0.00-0.03) X10*3/uL Absolute Neuts (auto) (2.0-8.3) x10*3/uL Absolute Nucleated RBC (0.0-0.012) X10*3/uL Nucleated RBC % (auto) (0.0-0.2) /100WBC Smear Tech's Comments PT (10.0-13.1) SEC INR (0.9-1.1) APTT (26.0-36.4) SEC VBG pH (7.32-7.43) VBG pCO2 mmHg VBG pO2 mmHg VBG HCO3 (22-26) mmol/L VBG O2 Saturation % VBG Base Excess mmol/L Sodium 142 (135-145) mmol/L Potassium 4.3 (3.3-5.1) mmol/L Chloride 97 (96-108) mmol/L Carbon Dioxide 35 H (22-29) mmol/L Anion Gap 14 (12-20) BUN 18 H (9-16) mg/dL Creatinine 0.64 (0.5-1.4) mg/dL Estim Creat Clear Calc 100.7 Estimated GFR > 60 Random Glucose 119 H (60-115) mg/dL Calcium 9.9 (8.4-10.2) mg/dL Total Bilirubin 0.2 (0.0-1.0) mg/dL AST 13 (5-31) U/L ALT 20 (0-31) U/L Alkaline Phosphatase 125 H (39-117) U/L Troponin I High Sens (<3.5-17.0) ng/L B-Natriuretic Peptide 13 (<100) pg/mL Total Protein 7.2 (6.5-8.0) g/dL Albumin 4.0 (3.5-5.0) g/dL Lipase 17 (8-78) U/L Influenza Type A (PCR) NEGATIVE (Negative) Influenza Type B (PCR) NEGATIVE (Negative) RSV RNA Qual (PCR) NEGATIVE (Negative) SARS-CoV-2 RNA (RT-PCR) NEGATIVE (Negative) 09/16/22 Range/Units 22:58 WBC (4.8-10.8) X10*3/uL RBC (4.20-5.50) X10*6/uL Hgb (12.0-16.0) g/dl Hct (37.0-47.0) % MCV (80.0-98.0) fL MCH (27.0-33.0) pg MCHC (31.0-35.0) g/dl RDW (11.0-16.0) % Plt Count (160-400) X10*3/uL MPV (9.4-12.3) fL Immature Gran % (Auto) (0.0-0.4) % Neut % (Auto) (45-73) % Lymph % (Auto) (20-40) % [place] % (Auto) (2-11) % Eos % (Auto) (0-4) % Baso % (Auto) (0-2) % Lymph # (Auto) (1.2-4.9) X10*3/uL [place] # (Auto) (0.1-1.2) X10*3/uL Eos # (Auto) (0.0-0.4) X10*3/uL Baso # (Auto) (0.0-0.2) X10*3/uL Abs Immat Gran (auto) (0.00-0.03) X10*3/uL Absolute Neuts (auto) (2.0-8.3) x10*3/uL Absolute Nucleated RBC (0.0-0.012) X10*3/uL Nucleated RBC % (auto) (0.0-0.2) /100WBC Smear Tech's Comments PT (10.0-13.1) SEC INR (0.9-1.1) APTT (26.0-36.4) SEC VBG pH 7.53 H (7.32-7.43) VBG pCO2 50 mmHg VBG pO2 61 mmHg VBG HCO3 42 H (22-26) mmol/L VBG O2 Saturation 91.0 % VBG Base Excess 17.2 mmol/L Sodium (135-145) mmol/L Potassium (3.3-5.1) mmol/L Chloride (96-108) mmol/L Carbon Dioxide (22-29) mmol/L Anion Gap (12-20) BUN (9-16) mg/dL Creatinine (0.5-1.4) mg/dL Estim Creat Clear Calc Estimated GFR Random Glucose (60-115) mg/dL Calcium (8.4-10.2) mg/dL Total Bilirubin (0.0-1.0) mg/dL AST (5-31) U/L ALT (0-31) U/L Alkaline Phosphatase (39-117) U/L Troponin I High Sens (<3.5-17.0) ng/L B-Natriuretic Peptide (<100) pg/mL Total Protein (6.5-8.0) g/dL Albumin (3.5-5.0) g/dL Lipase (8-78) U/L Influenza Type A (PCR) (Negative) Influenza Type B (PCR) (Negative) RSV RNA Qual (PCR) (Negative) SARS-CoV-2 RNA (RT-PCR) (Negative) Radiology Impression Discussion of test interpretation with radiology: I have reviewed the radiologist's reading. (No evidence of PE. Chronic and subacute rib fractures, no pneumothorax. Moderate emphysematous changes) Discharge Plan Discharge Clinical Impression: Chronic lung disease Patient Disposition: Home, Self-Care Instructions: COPD (Chronic Obstructive Pulmonary Disease) (ED) Additional Instructions: Your workup in the emergency department today was reassuring. Your symptoms are likely related to a mild COPD exacerbation. You do not have any blood clots in her lungs or evidence of pneumonia You have scattered lung nodules that need to be followed up with your PCP. You should have a repeat CT scan in approximately 1 year to evaluate for change in these lung nodules Use your prescribed oxygen and BiPAP exactly as directed. Take prednisone 40 mg additional each day for the next 5 days Return for new or worsening symptoms Prescriptions: New prednisone 20 mg tablet 40 mg PO DAILY Qty: 8 0RF No Action Brovana 15 mcg/2 mL solution for nebulization 2 ml inhalation Q12H 30 Days Qty: 120 11RF Spiriva with HandiHaler 18 mcg capsule, w/inhalation device 1 cap inhalation DAILY Qty: 30 11RF gabapentin 300 mg capsule 300 mg PO BID Qty: 60 3RF budesonide 0.5 mg/2 mL suspension for nebulization 0.5 mg inhalation BID Qty: 120 11RF prednisone 10 mg tablet 20 mg PO DAILY Qty: 30 0RF ipratropium-albuterol 0.5 mg-3 mg(2.5 mg base)/3 mL solution for nebulization 3 ml PO Q4H PRN (Reason: for wheezing) Qty: 540 6RF prednisone 10 mg tablet See Rx Instructions PO DAILY 18 Days Qty: 63 0RF Rx Instructions: PO daily; Take 6 tabs daily x 3 days, then 5 tabs x 3 days, then 4 tabs x 3 days, then 3 tabs x 3 days, then 2 tabs daily x 3 days, then 1 tab x 3 days to complete. diltiazem HCl [Tiadylt ER] 360 mg capsule,extended release 24 hr 360 mg PO DAILY rosuvastatin 5 mg tablet 5 mg PO BEDTIME roflumilast [Daliresp] 500 mcg tablet 500 mcg PO DAILY insulin lispro [Humalog U-100 Insulin] 100 unit/mL solution See Protocol subcut TIDAC Protocol: Insulin Correction Scale Less than or equal to 110 ---- Give (units): 0 111 to 150 Give (units): 0 151 to 200 Give (units): 2 201 to 250 Give (units): 4 251 to 300 Give (units): 6 301 to 350 Give (units): 8 Greater than 350 Give (units): 10 Call MD if Blood Glucose > : 350 metformin 500 mg tablet extended release 24 hr 1,000 mg PO BID hydralazine 25 mg tablet 25 mg PO TID insulin lispro 100 unit/mL solution 4 unit subcut TIDAC omeprazole 40 mg capsule,delayed release(DR/EC) 40 mg PO DAILY@0630 insulin glargine [Lantus U-100 Insulin] 100 unit/mL solution 35 unit subcut BEDTIME Qty: 10 0RF methadone 10 mg/mL Concentrate 50 mg PO DAILY ergocalciferol (vitamin D2) 1,250 mcg (50,000 unit) capsule 1,250 mcg PO QWEEK lisinopril 40 mg tablet 40 mg PO DAILY Serevent Diskus 50 mcg/dose Blister With Device 1 inh inhalation RBID 30 Days Qty: 60 2RF simethicone [Gas Relief (simethicone)] 80 mg Tablet,Chewable 80 mg PO QIDWMHS PRN (Reason: Abdominal Distention) Qty: 30 0RF lamotrigine 150 mg tablet 150 mg PO BID bupropion HCl 100 mg tablet 100 mg PO DAILY sodium chloride 7 % solution for nebulization 4 ml inhalation BID alendronate 70 mg tablet 70 mg PO QWEEK lidocaine 5 % adhesive patch,medicated 1 patch topical DAILY Rx Instructions: APPLY FOR 12 HOURS THEN REMOVE FOR 12 HOURS cefuroxime axetil 500 mg tablet 500 mg PO BID Qty: 28 0RF clonazepam 1 mg tablet 1 mg PO BID PRN (Reason: Anxiety) ibuprofen 600 mg tablet 600 mg PO Q8H PRN (Reason: Pain) prednisone 50 mg tablet 50 mg PO DAILY Qty: 4 0RF montelukast 10 mg tablet 10 mg PO BEDTIME albuterol sulfate [ProAir HFA] 90 mcg/actuation HFA aerosol inhaler 2 puff inhalation Q4H PRN (Reason: Shortness Of Breath Or Wheezing) loratadine [Claritin] 10 mg tablet 10 mg PO DAILY theophylline 450 mg tablet extended release 12 hr 450 mg PO Q12H 30 Days Qty: 60 6RF
[2022-09-16 22:40] VITALS: PULSE 113; RESP 18; O2SAT 93
[2022-09-16 23:17] LABS: Alanine Aminotransferase 20 U/L (0-31); Alkaline Phosphatase 125 U/L (39-117); Anion Gap 14 (12-20); Aspartate Amino Transferase 13 U/L (5-31); Bilirubin Total 0.2 mg/dL (0.0-1.0); Blood Urea Nitrogen 18 mg/dL (9-16); Calcium 9.9 mg/dL (8.4-10.2); Carbon Dioxide 35 mmol/L (22-29); Chloride 97 mmol/L (96-108); Creatinine Clr Calc Pharmacy 100.7; Estimated Glomerular Filt Rate > 60; Glucose Random 119 mg/dL (60-115); Lipase 17 U/L (8-78); Potassium 4.3 mmol/L (3.3-5.1); Sodium 142 mmol/L (135-145); Total Protein 7.2 g/dL (6.5-8.0)
[2022-09-16 23:49] VITALS: BP 150/94; PULSE 125; RESP 20; TEMP 37; O2SAT 92
--- NOTE | 2022-09-16 23:53 | PC.NURSE ---
Took over care at 11:30pm from Rn Esme, pt difficult Iv stick, notified provider MAUREEN Pizarro, respiratory is stable, Will continue to monitor.
[2022-09-17 01:58] VITALS: BP 107/92; PULSE 113; RESP 27; O2SAT 95
--- NOTE | 2022-09-17 02:09 | PC.NURSE ---
Medicated pt per May. Reviewed discharge instructions with pt, pt verbalized understanding.
== END 2022-09-17 02:24 | disposition home or self-care (01) ==
PROVIDERS: Physician Assistant; Emergency Provider Internal Medicine; PCP Family Medicine
DX: J44.9 Chronic obstructive pulmonary disease, unspecified (principal); R00.0 Tachycardia, unspecified; R60.0 Localized edema; R06.00 Dyspnea, unspecified; Z20.822 Contact with and (suspected) exposure to COVID-19; E11.9 Type 2 diabetes mellitus without complications; I11.0 Hypertensive heart disease with heart failure; I50.9 Heart failure, unspecified; E78.5 Hyperlipidemia, unspecified; F11.20 Opioid dependence, uncomplicated; Z99.81 Dependence on supplemental oxygen; Z87.891 Personal history of nicotine dependence; Z79.52 Long term (current) use of systemic steroids; Z79.4 Long term (current) use of insulin; Z79.899 Other long term (current) drug therapy
CPT/HCPCS: 0241U; 36415; 71275; 80053; 82803; 83690; 83880; 84484; 85025; 85610; 85730; 93005; 94640; 99284; 99285; Q9967

== ENCOUNTER 2022-09-26 08:51 | Outpatient (REF) | payer MEDICAID, SELFPAY | END 2022-09-26 08:52 | disposition home or self-care (01) | LOC: HO.MDS 08:51 | PROVIDERS: Visit Provider Hospitalist | DX: D80.1 Nonfamilial hypogammaglobulinemia (principal) | CPT/HCPCS: 96365; 96366; J1569 ==

== ENCOUNTER 2022-09-29 19:14 | Inpatient (IN) | payer MEDICAID, SELFPAY ==
--- NOTE | ~2022-09-29 | XR_ITS ---
EXAMINATION: XR CHEST CLINICAL INFORMATION: Rule out pneumonia COMPARISON: Chest 09/02/2022 TECHNIQUE: AP upright portable view of the chest was obtained. 0805. FINDINGS: There is no significant interval change. No focal consolidation, interstitial pulmonary edema or pneumothorax. The cardiomediastinal silhouette is stable. No pleural effusion. Multiple healed bilateral rib fractures. XR/XR chest 1V IMPRESSION: No acute disease.
[2022-09-29 19:33] VITALS: BP 157/66; BP 157/81; PULSE 94; RESP 17; TEMP 37; O2SAT 94; O2SAT 95; BMI 35.9
[2022-09-29] MEDS: ondansetron HCL 4 MG/2 ML VIAL IVPUSH (20:11)
[2022-09-29] MEDS: 0.9 % Sodium Chloride 1,000 ML 999 ML IVCONT (20:11)
[2022-09-29 20:15] LABS: MANUAL DIFF FLAG NO
[2022-09-29 20:17] LABS: Basophils Percent Auto 0.3 % (0-2); Hematocrit 39.4 % (37.0-47.0); Hemoglobin 12.1 g/dl (12.0-16.0); Imm Gran Abs Auto 0.11 X10*3/uL (0.00-0.03); Lymphocytes Absolute Auto 0.7 X10*3/uL (1.2-4.9); Lymphocytes Percent Auto 6.6 % (20-40); Mean Corpuscular HGB Conc 30.7 g/dl (31.0-35.0); Mean Corpuscular Hemoglobin 28.7 pg (27.0-33.0); Mean Corpuscular Volume 93.6 fL (80.0-98.0); Mean Platelet Volume 8.9 fL (9.4-12.3); Monocytes Absolute Auto 0.4 X10*3/uL (0.1-1.2); Neutrophils Absolute Auto 9.4 x10*3/uL (2.0-8.3); Neutrophils Percent Auto 88.1 % (45-73); Platelet Count 285 X10*3/uL (160-400); Red Blood Count 4.21 X10*6/uL (4.20-5.50); Red Cell Distribution Width 13.8 % (11.0-16.0); White Blood Count 10.7 X10*3/uL (4.8-10.8)
[2022-09-29 20:23] VITALS: BP 164/69; PULSE 101; RESP 15; TEMP 37.1; O2SAT 91
[2022-09-29 20:35] LABS: Appearance Urine Clear; Color Urine Yellow; Glucose Urine UA Negative (Negative); Leukocyte Esterase Urine Negative (Negative); Nitrite Urine Negative (Negative); Specific Gravity - Urine 1.015 (1.005-1.025); Urine Blood Negative (Negative); Urine Ketones Negative (Negative); Urine Protein Negative (Neg-Trace)
[2022-09-29 20:56] LABS: Alanine Aminotransferase 14 U/L (0-31); Albumin Level 3.7 g/dL (3.5-5.0); Alkaline Phosphatase 97 U/L (39-117); Anion Gap 13 (12-20); Aspartate Amino Transferase 14 U/L (5-31); Bilirubin Direct < 0.2 mg/dL (0.0-0.5); Bilirubin Total 0.2 mg/dL (0.0-1.0); Blood Urea Nitrogen 16 mg/dL (9-16); C Reactive Protein 0.23 mg/dL (< or = 0.50); Calcium 10.4 mg/dL (8.4-10.2); Carbon Dioxide 35 mmol/L (22-29); Chloride 96 mmol/L (96-108); Creatinine Clr Calc Pharmacy 96.4; Estimated Glomerular Filt Rate > 60; Glucose Random 222 mg/dL (60-115); Lipase 24 U/L (8-78); Magnesium 1.6 mg/dL (1.6-2.6); Potassium 4.4 mmol/L (3.3-5.1); Sodium 140 mmol/L (135-145); Total Protein 7.2 g/dL (6.5-8.0)
[2022-09-29 21:13] LABS: Erythrocyte Sedimentation Rate 53 MM/HR (0-20)
[2022-09-29] MEDS: Albuterol Sulfate (0.083%) 2.5 MG/3 ML VIAL.NEB 10 MG INHALE (22:15)
[2022-09-29 22:23] VITALS: PULSE 101; RESP 18; O2SAT 92
[2022-09-29] MEDS: Metoclopramide HCl 10 MG/2 ML VIAL IVPUSH (22:29)
[2022-09-29] MEDS: methylPREDNISolone Sod Succ 125 MG/2 ML VIAL IVPUSH (22:29)
[2022-09-29] MEDS: Ketorolac Tromethamine 30 MG/ML VIAL IVPUSH (22:29)
[2022-09-29] MEDS: diphenhydrAMINE HCL 50 MG/ML VIAL 25 MG IVPUSH (22:29)
[2022-09-29 22:38] VITALS: BP 149/88; PULSE 88; RESP 26; O2SAT 96
[2022-09-29 22:38] LABS: VBG Base Excess 15.6 mmol/L; VBG HCO3 45 mmol/L (22-26); VBG pCO2 80 mmHg; VBG pH 7.35 (7.32-7.43); VBG pO2 86 mmHg
[2022-09-29 22:39] LABS: Venous Blood Gas Refer to POC result
--- NOTE | 2022-09-29 22:43 | ED.HA ---
HPI - Headache General Chief Complaint: Headache Stated Complaint: HEADACHE VOMITING Time Seen by Provider: 09/29/22 21:54 Source: patient Mode of arrival: EMS Limitations: no limitations History of Present Illness HPI Narrative: Patient comes to emergency room via ambulance. Patient states that he has been having a headache for 2 days, with nausea and vomiting. Patient has been taking ibuprofen at home with no relief. Also, patient reporting chronic shortness of breath. Patient states that she feels like her pCO2 is elevated. Patient states that the shortness of breath is at baseline. Related Data Home Medications Medication Instructions Recorded Confirmed albuterol sulfate 90 mcg/actuation 2 puff inhalation Q4H PRN 12/30/19 07/29/22 aerosol inhaler (ProAir HFA) Shortness Of Breath Or Wheezing loratadine 10 mg tablet (Claritin) 10 mg PO DAILY 12/30/19 07/29/22 montelukast 10 mg tablet 10 mg PO BEDTIME 12/30/19 07/29/22 diltiazem HCl 360 mg capsule,24 360 mg PO DAILY 11/16/20 07/29/22 hr,extended release (Tiadylt ER) roflumilast 500 mcg tablet 500 mcg PO DAILY 11/16/20 07/29/22 (Daliresp) rosuvastatin 5 mg tablet 5 mg PO BEDTIME 11/16/20 07/29/22 insulin lispro 100 unit/mL See Protocol subcut TIDAC 12/14/20 07/29/22 subcutaneous solution (Humalog U-100 Insulin) metformin 500 mg tablet,extended 1,000 mg PO BID 05/18/21 07/29/22 release 24 hr ergocalciferol (vitamin D2) 1,250 1,250 mcg PO QWEEK 06/06/21 07/29/22 mcg (50,000 unit) capsule methadone 10 mg/mL oral concentrate 50 mg PO DAILY 06/06/21 07/29/22 lisinopril 40 mg tablet 40 mg PO DAILY 07/30/21 07/29/22 hydralazine 25 mg tablet 25 mg PO TID 11/02/21 07/29/22 insulin lispro 100 unit/mL 4 unit subcut TIDAC 11/02/21 07/29/22 subcutaneous solution clonazepam 1 mg tablet 1 mg PO BID PRN Anxiety 06/28/22 07/29/22 ibuprofen 600 mg tablet 600 mg PO Q8H PRN Pain 06/28/22 07/29/22 alendronate 70 mg tablet 70 mg PO QWEEK 07/29/22 07/29/22 bupropion HCl 100 mg tablet 100 mg PO DAILY 07/29/22 07/29/22 lamotrigine 150 mg tablet 150 mg PO BID 07/29/22 07/29/22 lidocaine 5 % topical patch 1 patch topical DAILY 07/29/22 07/29/22 Previous Rx's Medication Instructions Recorded salmeterol 50 mcg/dose blister 1 inh inhalation RBID 30 days #60 01/05/22 powder for inhalation (Serevent ea Diskus) simethicone 80 mg chewable tablet 80 mg PO QIDWMHS PRN Abdominal 01/05/22 (Gas Relief (simethicone)) Distention #30 tabs insulin glargine 100 unit/mL 35 unit (0.35 mL) subcut BEDTIME 02/18/22 subcutaneous solution (Lantus #10 mL U-100 Insulin) theophylline 450 mg 450 mg PO Q12H 30 days #60 tabs 05/08/22 tablet,extended release,12 hr arformoterol 15 mcg/2 mL solution 2 ml inhalation Q12H 30 days #120 06/07/22 for nebulization (Brovana) mL tiotropium bromide 18 mcg capsule 1 cap inhalation DAILY #30 ea 07/09/22 with inhalation device (Spiriva with HandiHaler) gabapentin 300 mg capsule 300 mg PO BID #60 caps 07/23/22 cefuroxime axetil 500 mg tablet 500 mg PO BID #28 tabs 08/06/22 budesonide 0.5 mg/2 mL suspension 0.5 mg (2 mL) inhalation BID #120 08/15/22 for nebulization mL prednisone 10 mg tablet 20 mg PO DAILY #30 tabs 08/23/22 ipratropium 0.5 mg-albuterol 3 mg 3 ml PO Q4H PRN for wheezing #540 09/02/22 (2.5 mg base)/3 mL nebulization mL soln prednisone 50 mg tablet 50 mg PO DAILY #4 tabs 09/03/22 prednisone 10 mg tablet See Rx Instructions PO DAILY 18 09/06/22 days #63 tabs prednisone 20 mg tablet 40 mg PO DAILY #8 tabs 09/17/22 sodium chloride 7 % for 4 ml inhalation BID #240 mL 09/20/22 nebulization omeprazole 40 mg capsule,delayed 40 mg PO DAILY@0630 30 days #30 09/24/22 release caps Allergies Allergy/AdvReac Type Severity Reaction Status Date / Time No Known Allergies Allergy Verified 05/27/22 10:15 [No Known Allergies*] Review of Systems Review of Systems: Constitutional : No Weight loss, No Fever, No Chills, No Night Sweats, No Fatigue, No Malaise ENT/Mouth : No Hearing loss, No Ear Pain, No Nasal Congestion, No Sinus Pain, No Hoarseness, No sore throat, No Rhinorrhea, No Swallowing Difficulty Eyes: No Eye Pain, No Swelling, No Redness, No Foreign Body, No Discharge, No Vision Changes Cardiovascular : No Chest Pain, No SOB, No Dyspnea on Exertion, No Orthopnea, No Edema, No Palpitations Respiratory : No Cough, No Sputum, No Wheezing, No Smoke Exposure, complaining of chronic Dyspnea, at baseline Gastrointestinal : Complaining of nausea vomiting No Diarrhea, No Constipation, No abdominal Pain, No Hematochezia, No Melena Genitourinary : no irregular bleeding, No Dysuria, No Urinary Frequency, No Hematuria, No Urinary Incontinence, No Urgency, No Flank Pain, No Urinary Flow Changes, No Hesitancy Musculoskeletal : No joint pain, No Myalgias, No Joint Swelling Skin : No Skin Lesions, No rash Neuro : No Weakness, No Numbness, No Paresthesias, No Loss of Consciousness, No Dizziness, complaining of a headache for 2 days Psych : No Anxiety/Panic, No Depression, No SI/HI/AH/VH, No Social Issues, Heme/Lymph: No Bruising, No Bleeding,No Lymphadenopathy Endocrine : No Polyuria, No Polydipsia, No Temperature Intolerance [facility] Past Medical History Medical History Abdominal pain Abnormal chest x-ray Acute and chronic respiratory failure with hypercapnia Acute respiratory failure Aspiration into airway Asthma-COPD overlap syndrome Bacteremia Cellulitis Chronic constipation Chronic respiratory failure Chronic respiratory failure Congestive heart failure COPD (chronic obstructive pulmonary disease) COPD exacerbation COPD mixed type Cor pulmonale Diabetes mellitus Essential hypertension Hyperlipidemia, unspecified Hypertensive cardiovascular disease Hypogammaglobulinemia Leukocytosis Limb swelling Morbid obesity Morbid obesity Opioid dependence CHITO (obstructive sleep apnea) Poor dentition Pulmonary congestion Pulmonary nodule Rib fractures Status asthmaticus with COPD (chronic obstructive pulmonary disease) Tobacco abuse Type 2 diabetes mellitus Type 2 diabetes mellitus with unspecified complications Vomiting Surgical History H/O tubal ligation Family History Family History Father Diabetes Other Asthma Social History Social History Household Members: Family Household Members Other:: daughter Housing: Apartment Do you presently have visiting nurse or other home services: Yes Unable to assess alcohol history related to: Unknown Alcohol intake: never Patient Tobacco Use Status: Former Tobacco user Quit Date: February 2022 Tobacco use type: Cigarette Cigarettes Per Day: 1 Years Smoked: 35 e-Cigarette/Vaping Use: Currently Using Second Hand Smoke Exposure: No Substance Use Type: Opiates Advance Directives: Yes Advance Directives on File: Yes Advance Directives Date on File: 06/12/21 service: No Current occupational status: unemployed and disabled Physical Exam Vital Signs: Vital Signs: Last Vital Signs Temp 98.6 F 09/30/22 00:31 Pulse 99 09/30/22 06:22 Resp 20 09/30/22 06:22 BP 181/92 H 09/30/22 06:22 Pulse Ox 93 09/30/22 06:22 O2 Del Method BiPAP 09/30/22 06:22 O2 Flow Rate 2 09/30/22 00:31 FiO2 28 09/30/22 05:04 Oxygen Flow Rate 2 09/29/22 19:33 BMI result Body Mass Index 35.9 Const: Other: Appearance: Alert. Oriented X3. No acute distress. Eyes: Pupils equal, round and reactive to light. ENT: Pharynx normal. Neck: Normal inspection. Neck supple. No lymph nodes noted. No crepitus CVS: Normal heart rate and rhythm. Pulses normal. Normal S1 and S2 Respiratory: No respiratory distress, at 2 L at baseline, decreased breath sounds, wheezing at baseline Abdomen: Soft and nontender. No rigidity. No distention. Skin: Skin warm and dry. Normal skin color. Normal skin turgor. Extremities: No lower extremity edema. No Lacerations. No Rash Neuro: Oriented X 3. No motor deficit. No sensory deficit. Moving all extremities. No slurred speech. CN 2 through 12 grossly intact Psych: calm, cooperative, normal affect Course Course Course Narrative: -patient seems to have a tension headache, no neurological deficit. Patient receiving IV fluids, morphine, Reglan and Benadryl. -while patient is getting her IV treatment for the headache, patient requesting abating treatment. Patient states that her paleobotanist told her that she has any acute on chronic shortness of breath to use prednisone. Patient receiving an albuterol treatment and also Solu-Medrol. Patient denies fever chills, denies increasing cough or sputum production. -patient has an asthma COPD overlap syndrome, at this time, 06:45, this seems to be more asthma exacerbation. However, due to patient's comorbidities, patient will be empirically treated with antibiotics. -patient has been on BiPAP for approximately 6 hours. Patient is much more awake, alert. However, patient's pCO2 is still elevated we are going to continue pCO2 here in the emergency room, we do not have ICU beds available. Likely in a few hours, patient's pCO2 will improve and she will be able to be admitted to the floor. At this time, 06:50, patient awake, alert, answering questions appropriately. At 05:00, pCO2 was 84. We will obtain blood gases again at 08:00 - sign out given to Dr. Humphrey Medications Administered Discontinued Medications Generic Name Dose Route Start Last Admin Trade Name Freq PRN Reason Stop Dose Admin Albuterol Sulfate 10 mg 09/29/22 22:00 09/29/22 22:15 Albuterol Sulfate (0.083%) 2.5 Mg/3 Ml Vial.Neb INHALE 09/29/22 22:01 10 mg ONCE ONE Administration Diphenhydramine HCl 25 mg 09/29/22 22:02 09/29/22 22:29 Diphenhydramine Hcl 50 Mg/Ml Vial IVPUSH 09/29/22 22:03 25 mg ONCE ONE Administration Sodium Chloride 1,000 mls @ 999 mls/hr 09/29/22 19:45 09/29/22 21:12 Ns IVCONT 09/29/22 20:45 Infused .Q1H1M ANA Infusion Ketorolac Tromethamine 30 mg 09/29/22 22:02 09/29/22 22:29 Ketorolac Tromethamine 30 Mg/Ml Vial IVPUSH 09/29/22 22:03 30 mg ONCE ONE Administration Methylprednisolone Sodium Succinate 125 mg 09/29/22 22:00 09/29/22 22:29 Methylprednisolone Sod Succ 125 Mg/2 Ml Vial IVPUSH 09/29/22 22:01 125 mg ONCE ONE Administration Metoclopramide HCl 10 mg 09/29/22 22:02 09/29/22 22:29 Metoclopramide Hcl 10 Mg/2 Ml Vial IVPUSH 09/29/22 22:03 10 mg ONCE ONE Administration Ondansetron HCl 4 mg 09/29/22 19:36 09/29/22 20:11 Ondansetron Hcl 4 Mg/2 Ml Vial IVPUSH 09/29/22 19:37 4 mg ONCE ONE Administration Medical Decision Making Medical Decision Making [facility] Narrative: -admission being considered. PCO2 is high -at a.m., we will repeat venous blood gases. At this time, 06:55, patient awake, alert and oriented x3, speaking in full sentences,, still on BiPAP -we will repeat blood gases. -we do not have an ICU bed at this time, it would be unnecessary to transfer the patient, patient is stable Differential Diagnosis Differential Diagnoses: The differential diagnosis associated with the presentation includes (Asthma, chronic lung disease, hypercapnic respiratory failure) Admission/Observation Consideration of admission/observation: Escalation of care including admission/observation considered Consult Healthcare Provider Management of the patient was discussed with: Hospitalist Lab Data [facility] Lab Attestation statement: I reviewed the patient's lab results. 09/29/22 20:11 09/29/22 20:11 Labs: Lab Results 09/29/22 09/29/22 09/29/22 Range/Units 20:11 20:11 20:11 WBC 10.7 (4.8-10.8) X10*3/uL RBC 4.21 (4.20-5.50) X10*6/uL Hgb 12.1 (12.0-16.0) g/dl Hct 39.4 (37.0-47.0) % MCV 93.6 (80.0-98.0) fL MCH 28.7 (27.0-33.0) pg MCHC 30.7 L (31.0-35.0) g/dl RDW 13.8 (11.0-16.0) % Plt Count 285 (160-400) X10*3/uL MPV 8.9 L (9.4-12.3) fL Immature Gran % (Auto) 1.0 H (0.0-0.4) % Neut % (Auto) 88.1 H (45-73) % Lymph % (Auto) 6.6 L (20-40) % [place] % (Auto) 4.0 (2-11) % Eos % (Auto) 0.0 (0-4) % Baso % (Auto) 0.3 (0-2) % Lymph # (Auto) 0.7 L (1.2-4.9) X10*3/uL [place] # (Auto) 0.4 (0.1-1.2) X10*3/uL Eos # (Auto) 0.0 (0.0-0.4) X10*3/uL Baso # (Auto) 0.0 (0.0-0.2) X10*3/uL Abs Immat Gran (auto) 0.11 H (0.00-0.03) X10*3/uL Absolute Neuts (auto) 9.4 H (2.0-8.3) x10*3/uL Absolute Nucleated RBC 0.000 (0.0-0.012) X10*3/uL Nucleated RBC % (auto) 0.0 (0.0-0.2) /100WBC ESR 53 H (0-20) MM/HR VBG pH (7.32-7.43) VBG pCO2 mmHg VBG pO2 mmHg VBG HCO3 (22-26) mmol/L VBG O2 Saturation % VBG Base Excess mmol/L Sodium 140 (135-145) mmol/L Potassium 4.4 (3.3-5.1) mmol/L Chloride 96 (96-108) mmol/L Carbon Dioxide 35 H (22-29) mmol/L Anion Gap 13 (12-20) BUN 16 (9-16) mg/dL Creatinine 0.68 (0.5-1.4) mg/dL Estim Creat Clear Calc 96.4 Estimated GFR > 60 Random Glucose 222 H (60-115) mg/dL Calcium 10.4 H (8.4-10.2) mg/dL Magnesium 1.6 (1.6-2.6) mg/dL Total Bilirubin 0.2 (0.0-1.0) mg/dL Direct Bilirubin < 0.2 (0.0-0.5) mg/dL AST 14 (5-31) U/L ALT 14 (0-31) U/L Alkaline Phosphatase 97 (39-117) U/L Troponin I High Sens (<3.5-17.0) ng/L C-Reactive Protein 0.23 (< or = 0.50) mg/dL B-Natriuretic Peptide (<100) pg/mL Total Protein 7.2 (6.5-8.0) g/dL Albumin 3.7 (3.5-5.0) g/dL Lipase 24 (8-78) U/L Urine Color Urine Appearance Urine pH (5.0-9.0) Ur Specific [place] (1.005-1.025) Urine Protein (Neg-Trace) mg/dL Urine Glucose (UA) (Negative) mg/dL Urine Ketones (Negative) mg/dL Urine Blood (Negative) Urine Nitrite (Negative) Ur Leukocyte Esterase (Negative) 09/29/22 09/29/22 09/29/22 Range/Units 20:29 22:28 22:28 WBC (4.8-10.8) X10*3/uL RBC (4.20-5.50) X10*6/uL Hgb (12.0-16.0) g/dl Hct (37.0-47.0) % MCV (80.0-98.0) fL MCH (27.0-33.0) pg MCHC (31.0-35.0) g/dl RDW (11.0-16.0) % Plt Count (160-400) X10*3/uL MPV (9.4-12.3) fL Immature Gran % (Auto) (0.0-0.4) % Neut % (Auto) (45-73) % Lymph % (Auto) (20-40) % [place] % (Auto) (2-11) % Eos % (Auto) (0-4) % Baso % (Auto) (0-2) % Lymph # (Auto) (1.2-4.9) X10*3/uL [place] # (Auto) (0.1-1.2) X10*3/uL Eos # (Auto) (0.0-0.4) X10*3/uL Baso # (Auto) (0.0-0.2) X10*3/uL Abs Immat Gran (auto) (0.00-0.03) X10*3/uL Absolute Neuts (auto) (2.0-8.3) x10*3/uL Absolute Nucleated RBC (0.0-0.012) X10*3/uL Nucleated RBC % (auto) (0.0-0.2) /100WBC ESR (0-20) MM/HR VBG pH (7.32-7.43) VBG pCO2 mmHg VBG pO2 mmHg VBG HCO3 (22-26) mmol/L VBG O2 Saturation % VBG Base Excess mmol/L Sodium (135-145) mmol/L Potassium (3.3-5.1) mmol/L Chloride (96-108) mmol/L Carbon Dioxide (22-29) mmol/L Anion Gap (12-20) BUN (9-16) mg/dL Creatinine (0.5-1.4) mg/dL Estim Creat Clear Calc Estimated GFR Random Glucose (60-115) mg/dL Calcium (8.4-10.2) mg/dL Magnesium (1.6-2.6) mg/dL Total Bilirubin (0.0-1.0) mg/dL Direct Bilirubin (0.0-0.5) mg/dL AST (5-31) U/L ALT (0-31) U/L Alkaline Phosphatase (39-117) U/L Troponin I High Sens 12.4 (<3.5-17.0) ng/L C-Reactive Protein (< or = 0.50) mg/dL B-Natriuretic Peptide 30 (<100) pg/mL Total Protein (6.5-8.0) g/dL Albumin (3.5-5.0) g/dL Lipase (8-78) U/L Urine Color Yellow Urine Appearance Clear Urine pH 6.0 (5.0-9.0) Ur Specific [place] 1.015 (1.005-1.025) Urine Protein Negative (Neg-Trace) mg/dL Urine Glucose (UA) Negative (Negative) mg/dL Urine Ketones Negative (Negative) mg/dL Urine Blood Negative (Negative) Urine Nitrite Negative (Negative) Ur Leukocyte Esterase Negative (Negative) 09/29/22 09/30/22 Range/Units 22:29 04:53 WBC (4.8-10.8) X10*3/uL RBC (4.20-5.50) X10*6/uL Hgb (12.0-16.0) g/dl Hct (37.0-47.0) % MCV (80.0-98.0) fL MCH (27.0-33.0) pg MCHC (31.0-35.0) g/dl RDW (11.0-16.0) % Plt Count (160-400) X10*3/uL MPV (9.4-12.3) fL Immature Gran % (Auto) (0.0-0.4) % Neut % (Auto) (45-73) % Lymph % (Auto) (20-40) % [place] % (Auto) (2-11) % Eos % (Auto) (0-4) % Baso % (Auto) (0-2) % Lymph # (Auto) (1.2-4.9) X10*3/uL [place] # (Auto) (0.1-1.2) X10*3/uL Eos # (Auto) (0.0-0.4) X10*3/uL Baso # (Auto) (0.0-0.2) X10*3/uL Abs Immat Gran (auto) (0.00-0.03) X10*3/uL Absolute Neuts (auto) (2.0-8.3) x10*3/uL Absolute Nucleated RBC (0.0-0.012) X10*3/uL Nucleated RBC % (auto) (0.0-0.2) /100WBC ESR (0-20) MM/HR VBG pH 7.35 7.33 (7.32-7.43) VBG pCO2 80 84 mmHg VBG pO2 86 90 mmHg VBG HCO3 45 H 45 H (22-26) mmol/L VBG O2 Saturation 96.0 97.0 % VBG Base Excess 15.6 14.9 mmol/L Sodium (135-145) mmol/L Potassium (3.3-5.1) mmol/L Chloride (96-108) mmol/L Carbon Dioxide (22-29) mmol/L Anion Gap (12-20) BUN (9-16) mg/dL Creatinine (0.5-1.4) mg/dL Estim Creat Clear Calc Estimated GFR Random Glucose (60-115) mg/dL Calcium (8.4-10.2) mg/dL Magnesium (1.6-2.6) mg/dL Total Bilirubin (0.0-1.0) mg/dL Direct Bilirubin (0.0-0.5) mg/dL AST (5-31) U/L ALT (0-31) U/L Alkaline Phosphatase (39-117) U/L Troponin I High Sens (<3.5-17.0) ng/L C-Reactive Protein (< or = 0.50) mg/dL B-Natriuretic Peptide (<100) pg/mL Total Protein (6.5-8.0) g/dL Albumin (3.5-5.0) g/dL Lipase (8-78) U/L Urine Color Urine Appearance Urine pH (5.0-9.0) Ur Specific [place] (1.005-1.025) Urine Protein (Neg-Trace) mg/dL Urine Glucose (UA) (Negative) mg/dL Urine Ketones (Negative) mg/dL Urine Blood (Negative) Urine Nitrite (Negative) Ur Leukocyte Esterase (Negative) Critical Care Time Critical Care Time Critical Care Time: Yes Total Critical Care Time: 60 Attestation: I have personally provided critical care time. Time includes review of lab data, radiology results, discussion with consultants, and monitoring for potential decompensation. Intervention performed as documented. Discharge Plan Discharge Clinical Impression: Hypercapnic respiratory failure Patient Disposition: Admitted As Inpatient Prescriptions: No Action Brovana 15 mcg/2 mL solution for nebulization 2 ml inhalation Q12H 30 Days Qty: 120 11RF Spiriva with HandiHaler 18 mcg capsule, w/inhalation device 1 cap inhalation DAILY Qty: 30 11RF gabapentin 300 mg capsule 300 mg PO BID Qty: 60 3RF budesonide 0.5 mg/2 mL suspension for nebulization 0.5 mg inhalation BID Qty: 120 11RF prednisone 10 mg tablet 20 mg PO DAILY Qty: 30 0RF ipratropium-albuterol 0.5 mg-3 mg(2.5 mg base)/3 mL solution for nebulization 3 ml PO Q4H PRN (Reason: for wheezing) Qty: 540 6RF prednisone 10 mg tablet See Rx Instructions PO DAILY 18 Days Qty: 63 0RF Rx Instructions: PO daily; Take 6 tabs daily x 3 days, then 5 tabs x 3 days, then 4 tabs x 3 days, then 3 tabs x 3 days, then 2 tabs daily x 3 days, then 1 tab x 3 days to complete. sodium chloride 7 % solution for nebulization 4 ml inhalation BID Qty: 240 11RF omeprazole 40 mg capsule,delayed release(DR/EC) 40 mg PO DAILY@0630 30 Days Qty: 30 6RF diltiazem HCl [Tiadylt ER] 360 mg capsule,extended release 24 hr 360 mg PO DAILY rosuvastatin 5 mg tablet 5 mg PO BEDTIME roflumilast [Daliresp] 500 mcg tablet 500 mcg PO DAILY insulin lispro [Humalog U-100 Insulin] 100 unit/mL solution See Protocol subcut TIDAC Protocol: Insulin Correction Scale Less than or equal to 110 ---- Give (units): 0 111 to 150 Give (units): 0 151 to 200 Give (units): 2 201 to 250 Give (units): 4 251 to 300 Give (units): 6 301 to 350 Give (units): 8 Greater than 350 Give (units): 10 Call MD if Blood Glucose > : 350 metformin 500 mg tablet extended release 24 hr 1,000 mg PO BID hydralazine 25 mg tablet 25 mg PO TID insulin lispro 100 unit/mL solution 4 unit subcut TIDAC insulin glargine [Lantus U-100 Insulin] 100 unit/mL solution 35 unit subcut BEDTIME Qty: 10 0RF methadone 10 mg/mL Concentrate 50 mg PO DAILY ergocalciferol (vitamin D2) 1,250 mcg (50,000 unit) capsule 1,250 mcg PO QWEEK lisinopril 40 mg tablet 40 mg PO DAILY Serevent Diskus 50 mcg/dose Blister With Device 1 inh inhalation RBID 30 Days Qty: 60 2RF simethicone [Gas Relief (simethicone)] 80 mg Tablet,Chewable 80 mg PO QIDWMHS PRN (Reason: Abdominal Distention) Qty: 30 0RF lamotrigine 150 mg tablet 150 mg PO BID bupropion HCl 100 mg tablet 100 mg PO DAILY alendronate 70 mg tablet 70 mg PO QWEEK lidocaine 5 % adhesive patch,medicated 1 patch topical DAILY Rx Instructions: APPLY FOR 12 HOURS THEN REMOVE FOR 12 HOURS cefuroxime axetil 500 mg tablet 500 mg PO BID Qty: 28 0RF clonazepam 1 mg tablet 1 mg PO BID PRN (Reason: Anxiety) ibuprofen 600 mg tablet 600 mg PO Q8H PRN (Reason: Pain) prednisone 50 mg tablet 50 mg PO DAILY Qty: 4 0RF prednisone 20 mg tablet 40 mg PO DAILY Qty: 8 0RF montelukast 10 mg tablet 10 mg PO BEDTIME albuterol sulfate [ProAir HFA] 90 mcg/actuation HFA aerosol inhaler 2 puff inhalation Q4H PRN (Reason: Shortness Of Breath Or Wheezing) loratadine [Claritin] 10 mg tablet 10 mg PO DAILY theophylline 450 mg tablet extended release 12 hr 450 mg PO Q12H 30 Days Qty: 60 6RF
[2022-09-29 22:54] LABS: Troponin-I High Sensitivity 12.4 ng/L (<3.5-17.0)
[2022-09-29 23:22] LABS: B Type Natriuretic Peptide 30 pg/mL (<100)
[2022-09-30] VITALS (18 sets, daily range): BP systolic 117–190; BP diastolic 83–98; PULSE 94–122; RESP 15–30; TEMP 35.6–37; O2SAT 89–99; BMI 37.9
[2022-09-30 05:00] LABS: Venous Blood Gas Refer to POC result
[2022-09-30 05:01] LABS: VBG Base Excess 14.9 mmol/L; VBG HCO3 45 mmol/L (22-26); VBG pCO2 84 mmHg; VBG pH 7.33 (7.32-7.43); VBG pO2 90 mmHg
[2022-09-30] MEDS: Prochlorperazine Edisylate 10 MG/2 ML VIAL IVPUSH (06:57)
[2022-09-30] MEDS: 0.9 % Sodium Chloride 1,000 ML 999 ML IVCONT (06:57)
[2022-09-30] MEDS: cefTRIAXone sodium 1 GM in 0.9 % Sodium Chloride 50 ML IV (06:57)
[2022-09-30 07:35] LABS: Glucose, Whole Blood 255 mg/dL (60-115)
[2022-09-30] MEDS: Azithromycin 500 MG in 0.9 % Sodium Chloride 250 ML 125 MG IV (08:04)
[2022-09-30] MEDS: lisinopriL 40 MG TABLET PO (08:04)
[2022-09-30] MEDS: hydrALAZINE HCl 25 MG TABLET PO (08:04)
[2022-09-30 08:27] LABS: VBG Base Excess 12.1 mmol/L; VBG HCO3 39 mmol/L (22-26); VBG pCO2 64 mmHg; VBG pH 7.39 (7.32-7.43); VBG pO2 66 mmHg
[2022-09-30 08:29] LABS: Venous Blood Gas Refer to POC result
--- NOTE | 2022-09-30 09:14 | PC.NURSE ---
pt alert and oriented, pt removed own bipap, on 4L nasal cannula 94%. antibiotics infusing at this time.
--- NOTE | 2022-09-30 10:07 | P.HPHOSP_ITS ---
History of Present Illness Date of Service: 09/30/22 Chief Complaint: shortness of breath The patient is a 52 yo F with a PMH of chronic hypoxic and hypercarbic respirator failure on PAP therapy at home, asthma/COPD overlap syndrome, CHITO, DM, HTN, morbid obesity and recurrent hospitalizations for worsening respiratory failure who presents to [facility] ED with complaints of headache and dyspnea for 2 days duration. The patient reports an intermittently productive cough. She denies any fevers or chills. She reports compliance with her BIPAP/CPAP at home. She denies tobacco smoking. She denies any sick contacts. In the ED, the's initial VBG showed PCO2 around 80 with a baseline around 55-60. She was hypoxic and had increased work of breathing. The patient was placed on BIPAP and treated in the ED with improvements in her VBG (pCO2 down to 64); She is tolerating 4L by NC but had increased WOB on minimal exertion (unable to have a 5 minute conversation at rest). She has been given IV antibiotics, multtiple rounds of bronchdilators, IV antibiotics. She will now be admitted for further care. Review of Systems Review of Systems: negative except HPI [facility] Medical History Abdominal pain Abnormal chest x-ray Acute and chronic respiratory failure with hypercapnia Acute respiratory failure Aspiration into airway Asthma-COPD overlap syndrome Bacteremia Cellulitis Chronic constipation Chronic respiratory failure Chronic respiratory failure Congestive heart failure COPD (chronic obstructive pulmonary disease) COPD exacerbation COPD mixed type Cor pulmonale Diabetes mellitus Essential hypertension Hyperlipidemia, unspecified Hypertensive cardiovascular disease Hypogammaglobulinemia Leukocytosis Limb swelling Morbid obesity Morbid obesity Opioid dependence CHITO (obstructive sleep apnea) Poor dentition Pulmonary congestion Pulmonary nodule Rib fractures Status asthmaticus with COPD (chronic obstructive pulmonary disease) Tobacco abuse Type 2 diabetes mellitus Type 2 diabetes mellitus with unspecified complications Vomiting Family History Father Diabetes Other Asthma Surgical History H/O tubal ligation Social History Household Members: Family Household Members Other:: daughter Housing: Apartment Do you presently have visiting nurse or other home services: Yes Unable to assess alcohol history related to: Unknown Alcohol intake: never Patient Tobacco Use Status: Former Tobacco user Quit Date: February 2022 Tobacco use type: Cigarette Cigarettes Per Day: 1 Years Smoked: 35 e-Cigarette/Vaping Use: Currently Using Second Hand Smoke Exposure: No Substance Use Type: Opiates Advance Directives: Yes Advance Directives on File: Yes Advance Directives Date on File: 06/12/21 service: No Current occupational status: unemployed and disabled Meds Allergies Allergy/AdvReac Type Severity Reaction Status Date / Time No Known Allergies Allergy Verified 05/27/22 10:15 [No Known Allergies*] Active Medications: Current Medications Acetaminophen (Acetaminophen 325 Mg Tablet) 650 mg PO Q6H PRN PRN Reason: Pain, Mild (Pain Scale 1-3) Albuterol Sulfate (Albuterol Sulfate (0.042%) 1.25 Mg/3 Ml Vial.Neb) 1.25 mg INHALE RQ4H PRN PRN Reason: Wheezing Albuterol/Ipratropium (Albuterol/Iprat 2.5/0.5mg 3 Ml Ampul.Neb) 3 ml INHALE RQ4H WHILE AWAKE ANA Enoxaparin Sodium (Enoxaparin Sodium 40 Mg/0.4 Ml Syringe) 40 mg SUBCUT Q24H ANA Methylprednisolone Sodium Succinate (Methylprednisolone Sod Succ 125 Mg/2 Ml Vial) 60 mg IVPUSH Q8H [facility] Sodium Chloride (0.9 % Sodium Chloride Flush 3 Ml Syringe) 3 ml IVFLUSH QSHIFT ANA Home Medications Medication Instructions Recorded Confirmed Last Taken Type albuterol sulfate 90 mcg/actuation 2 puff inhalation Q4H PRN 12/30/19 07/29/22 07/28/22 23:10 History aerosol inhaler (ProAir HFA) Shortness Of Breath Or Wheezing loratadine 10 mg tablet (Claritin) 10 mg PO DAILY 12/30/19 07/29/22 04/07/22 History montelukast 10 mg tablet 10 mg PO BEDTIME 12/30/19 07/29/22 07/28/22 23:14 History diltiazem HCl 360 mg capsule,24 360 mg PO DAILY 11/16/20 07/29/22 04/07/22 History hr,extended release (Tiadylt ER) roflumilast 500 mcg tablet 500 mcg PO DAILY 0907/29/22 07/28/22 23:15 History (Daliresp) rosuvastatin 5 mg tablet 5 mg PO BEDTIME 11/16/20 07/29/22 07/28/22 23:15 History insulin lispro 100 unit/mL See Protocol subcut TIDAC 12/14/20 07/29/22 07/28/22 23:16 History subcutaneous solution (Humalog U-100 Insulin) metformin 500 mg tablet,extended 1,000 mg PO BID 05/18/21 07/29/22 04/07/22 History release 24 hr ergocalciferol (vitamin D2) 1,250 1,250 mcg PO QWEEK 06/06/21 07/29/22 Unknown History mcg (50,000 unit) capsule methadone 10 mg/mL oral concentrate 50 mg PO DAILY 06/06/21 07/29/22 07/28/22 History lisinopril 40 mg tablet 40 mg PO DAILY 07/30/21 07/29/22 04/07/22 History hydralazine 25 mg tablet 25 mg PO TID 11/02/21 07/29/22 07/28/22 23:12 History insulin lispro 100 unit/mL 4 unit subcut TIDAC 11/02/21 07/29/22 04/07/22 History subcutaneous solution clonazepam 1 mg tablet 1 mg PO BID PRN Anxiety 06/28/22 07/29/22 Unknown History ibuprofen 600 mg tablet 600 mg PO Q8H PRN Pain 06/28/22 07/29/22 Unknown History alendronate 70 mg tablet 70 mg PO QWEEK 07/29/22 07/29/22 Unknown History bupropion HCl 100 mg tablet 100 mg PO DAILY 07/29/22 07/29/22 Unknown History lamotrigine 150 mg tablet 150 mg PO BID 07/29/22 07/29/22 Unknown History lidocaine 5 % topical patch 1 patch topical DAILY 07/29/22 07/29/22 Unknown History Physical Exam Vital Signs and Narrative: Vital Signs: Last Vital Signs Temp 97.7 F 09/30/22 09:15 Pulse 118 H 09/30/22 09:15 Resp 22 H 09/30/22 09:15 BP 163/94 H 09/30/22 09:15 Pulse Ox 94 09/30/22 09:15 O2 Del Method Nasal Cannula 09/30/22 09:15 O2 Flow Rate 4 09/30/22 09:15 FiO2 28 09/30/22 05:04 Oxygen Flow Rate 2 09/29/22 19:33 BMI result Body Mass Index 35.9 Const: Other: Constitutional - Awake and Alert, in respiratory distress with accessory muscle usage after minimal exertion; speaks in 2-3 words. Eyes - PERRLA, EOMI Cardiovascular - S1S2, RRR, No edema Respiratory - +distress with exertion, at rest RR still above 20; poor air entry globally with scattered wheezing Gastrointestinal - NT / ND; +BS; No rebound or guarding - No CVA tenderness Extremities - no calf tenderness bilaterally, no swelling Musculoskeletal - Normal inspection, normal ROM Skin - Warm/Dry Neurological - Alert & oriented x3, No focal deficit Psychological - Appropriate affect Results Labs 09/29/22 20:11 09/29/22 20:11 Labs: Laboratory Results - last 24 hr 09/29/22 09/29/22 09/29/22 20:11 20:11 20:11 MCV 93.6 MCH 28.7 MCHC 30.7 L RDW 13.8 Plt Count 285 MPV 8.9 L Immature Gran % (Auto) 1.0 H Neut % (Auto) 88.1 H Lymph % (Auto) 6.6 L Fisher % (Auto) 4.0 Eos % (Auto) 0.0 Baso % (Auto) 0.3 Lymph # (Auto) 0.7 L Fisher # (Auto) 0.4 Eos # (Auto) 0.0 Baso # (Auto) 0.0 Abs Immat Gran (auto) 0.11 H Absolute Neuts (auto) 9.4 H Absolute Nucleated RBC 0.000 Nucleated RBC % (auto) 0.0 ESR 53 H VBG pH VBG pCO2 VBG pO2 VBG HCO3 VBG O2 Saturation VBG Base Excess Anion Gap 13 Estim Creat Clear Calc 96.4 Estimated GFR > 60 POC Glucose Random Glucose 222 H Calcium 10.4 H Magnesium 1.6 Total Bilirubin 0.2 Direct Bilirubin < 0.2 AST 14 ALT 14 Alkaline Phosphatase 97 Troponin I High Sens C-Reactive Protein 0.23 B-Natriuretic Peptide Total Protein 7.2 Albumin 3.7 Lipase 24 Urine Color Urine Appearance Urine pH Ur Specific [place] Urine Protein Urine Glucose (UA) Urine Ketones Urine Blood Urine Nitrite Ur Leukocyte Esterase 09/29/22 09/29/22 09/29/22 20:29 22:28 22:28 MCV MCH MCHC RDW Plt Count MPV Immature Gran % (Auto) Neut % (Auto) Lymph % (Auto) Fisher % (Auto) Eos % (Auto) Baso % (Auto) Lymph # (Auto) Fisher # (Auto) Eos # (Auto) Baso # (Auto) Abs Immat Gran (auto) Absolute Neuts (auto) Absolute Nucleated RBC Nucleated RBC % (auto) ESR VBG pH VBG pCO2 VBG pO2 VBG HCO3 VBG O2 Saturation VBG Base Excess Anion Gap Estim Creat Clear Calc Estimated GFR POC Glucose Random Glucose Calcium Magnesium Total Bilirubin Direct Bilirubin AST ALT Alkaline Phosphatase Troponin I High Sens 12.4 C-Reactive Protein B-Natriuretic Peptide 30 Total Protein Albumin Lipase Urine Color Yellow Urine Appearance Clear Urine pH 6.0 Ur Specific [place] 1.015 Urine Protein Negative Urine Glucose (UA) Negative Urine Ketones Negative Urine Blood Negative Urine Nitrite Negative Ur Leukocyte Esterase Negative 09/29/22 09/30/22 09/30/22 22:29 04:53 07:32 MCV MCH MCHC RDW Plt Count MPV Immature Gran % (Auto) Neut % (Auto) Lymph % (Auto) Fisher % (Auto) Eos % (Auto) Baso % (Auto) Lymph # (Auto) Fisher # (Auto) Eos # (Auto) Baso # (Auto) Abs Immat Gran (auto) Absolute Neuts (auto) Absolute Nucleated RBC Nucleated RBC % (auto) ESR VBG pH 7.35 7.33 VBG pCO2 80 84 VBG pO2 86 90 VBG HCO3 45 H 45 H VBG O2 Saturation 96.0 97.0 VBG Base Excess 15.6 14.9 Anion Gap Estim Creat Clear Calc Estimated GFR POC Glucose 255 H Random Glucose Calcium Magnesium Total Bilirubin Direct Bilirubin AST ALT Alkaline Phosphatase Troponin I High Sens C-Reactive Protein B-Natriuretic Peptide Total Protein Albumin Lipase Urine Color Urine Appearance Urine pH Ur Specific [place] Urine Protein Urine Glucose (UA) Urine Ketones Urine Blood Urine Nitrite Ur Leukocyte Esterase 09/30/22 08:20 MCV MCH MCHC RDW Plt Count MPV Immature Gran % (Auto) Neut % (Auto) Lymph % (Auto) Fisher % (Auto) Eos % (Auto) Baso % (Auto) Lymph # (Auto) Fisher # (Auto) Eos # (Auto) Baso # (Auto) Abs Immat Gran (auto) Absolute Neuts (auto) Absolute Nucleated RBC Nucleated RBC % (auto) ESR VBG pH 7.39 VBG pCO2 64 VBG pO2 66 VBG HCO3 39 H VBG O2 Saturation 93.0 VBG Base Excess 12.1 Anion Gap Estim Creat Clear Calc Estimated GFR POC Glucose Random Glucose Calcium Magnesium Total Bilirubin Direct Bilirubin AST ALT Alkaline Phosphatase Troponin I High Sens C-Reactive Protein B-Natriuretic Peptide Total Protein Albumin Lipase Urine Color Urine Appearance Urine pH Ur Specific [place] Urine Protein Urine Glucose (UA) Urine Ketones Urine Blood Urine Nitrite Ur Leukocyte Esterase Imaging Radiologist's Impressions: Impressions Chest X-Ray 09/30/22 08:09 IMPRESSION: No acute disease. Assessment and Plan (1) Asthma-COPD overlap syndrome: Status: Acute Plan The patient is a 52 yo F with a PMH of chronic hypoxic and hypercarbic respirator failure on PAP therapy at home, asthma/COPD overlap syndrome, CHITO, DM, HTN, morbid obesity and recurrent hospitalizations for worsening respiratory failure who presents to [facility] ED with complaints of headache and dyspnea for 2 days duration. She has been treated with BIPAP in the ED and now will be admitted for further work up. 1. Acute on chronic hypoxic and hypercarbic respiratory failure VBG showing acute worsening of pCO2, desaturating to 90 while on BIPAP; now improved with bipap in the ED tolerating 4L by NC, will continue the same use BIPAP when asleep 2. Acute COPD exacerbation Denies tobacco use No evidence of pneumonia on chest imaging -- will empirically cover for bronchitis with doxy Pt does not have severe sepsis 3. HTN continue baseline meds 4. DM correction scale + lantus 5. Chronic opiate dependence methadone once verified 6. Mood continue baseline meds DVT pptx -- lovenox Full Code Med rec pending, will continue baseline meds as appropriate. Admitted as inpatient with the anticipation of a minimum of 2 midnights in the hpsital due to the degree of respiratory failure (requiring rescue bipap) therapy. Time Spent With Patient Time: Total time managing care of this patient today ____ minutes. Quality Stroke Does the patient have a stroke diagnosis?: No VTE Prior VTE?: No VTE Risk Level:: Medical - moderate - high VTE Device Contraindication: Treatment Not Indicated VTE Drug Contraindication: N/A - Med Ordered
[2022-09-30] MEDS: Albuterol/Iprat 2.5/0.5MG 3 ML AMPUL.NEB INHALE ×3 (10:17→19:16)
[2022-09-30] MEDS: methylPREDNISolone Sod Succ 125 MG/2 ML VIAL 60 MG IVPUSH ×2 (10:17→17:50)
[2022-09-30] MEDS: Enoxaparin Sodium 40 MG/0.4 ML SYRINGE SUBCUT (10:17)
--- NOTE | 2022-09-30 11:33 | PHA.MEDREC ---
Pharmacy Consult ? Medication Reconciliation Pharmacy has completed the medication reconciliation. spoke with patient through [employer]ice [employer]al[employer] and daughter. Patient was unsure about a few of her medications. Utilized claim history for confirmation. Her gabapentin is prescribed for BID but she takes it once daily. Hydralazine is prescribed for TID but she takes once daily as well. Verified methadone 50mg last taken 09/29/22. Patient has visiting nurse (Wilda [phone]) through [facility] that administers to her. Methadone from [facility]. Spoke to Nimo on the phone who verified dose and last taken dose ([phone]).
--- NOTE | 2022-09-30 12:26 | HE.PHANOTE ---
re: methadone Verified methadone 50mg last taken 09/29/22. Patient has visiting nurse (Wilda [phone]) through [facility] that administers to her. Methadone from [facility]. Spoke to Nimo on the phone who verified dose and last taken dose ([phone]). see pharmacy med rec note
--- NOTE | 2022-09-30 12:33 | PC.NURSE ---
pt placed back on bipap at approx 1115 provider aware. plan for repeat vbg
[2022-09-30 13:35] LABS: VBG Base Excess 20.1 mmol/L; VBG HCO3 48 mmol/L (22-26); VBG pCO2 73 mmHg; VBG pH 7.43 (7.32-7.43); VBG pO2 75 mmHg
[2022-09-30 13:35] LABS: Venous Blood Gas Refer to POC result
[2022-09-30] MEDS: methADONE HCl 20 MG/2 ML ORAL.CONC 50 MG PO (14:18)
[2022-09-30] MEDS: dilTIAZem HCL CD 180 MG CAP.ER.24H 360 MG PO (14:20)
--- NOTE | 2022-09-30 14:25 | PC.NURSE ---
Meds were given, pt struggling to breath and very restless, RT placed pt back on bipap, O2 is at 95. wctm
--- NOTE | 2022-09-30 14:26 | PC.RT ---
pt placed on bipap earlier due to etc02 at 85. dhaval bipap well. pt trialed off and rr in 30's sats 85%. pt placed back on Bipap of current settings. Etc02 at 50 now and sats 95% with RR22.. Will let Dr. Jones aware of pt status.
[2022-09-30 17:31] LABS: Glucose, Whole Blood 239 mg/dL (60-115)
[2022-09-30] MEDS: Insulin Lispro 100 UNIT/ML 3 ML VIAL SUBCUT ×2 (17:50→21:43)
[2022-09-30] MEDS: acetaZOLAMIDE sodium 500 MG VIAL IVPUSH (17:50)
[2022-09-30] MEDS: 0.9 % Sodium Chloride Flush 3 ML SYRINGE IVFLUSH ×2 (17:50→21:44)
[2022-09-30 19:47] LABS: Glucose, Whole Blood 170 mg/dL (60-115)
[2022-09-30] MEDS: Insulin Glargine,Hum.rec.anlog 100 UNIT/ML 10 ML VIAL 30 UNIT SUBCUT (21:36)
[2022-09-30] MEDS: lamoTRIgine 25 MG TABLET 150 MG PO (21:42)
[2022-09-30] MEDS: Montelukast Sodium 10 MG TABLET PO (21:43)
[2022-09-30] MEDS: Atorvastatin Calcium 20 MG TABLET PO (21:43)
[2022-09-30] MEDS: clonazePAM 1 MG TABLET PO (21:43)
[2022-10-01] VITALS (14 sets, daily range): BP systolic 132–167; BP diastolic 69–97; PULSE 81–110; RESP 4–22; TEMP 35.8–36.7; O2SAT 90–100
[2022-10-01] MEDS: methylPREDNISolone Sod Succ 125 MG/2 ML VIAL 60 MG IVPUSH ×3 (02:34→17:21)
[2022-10-01] MEDS: Albuterol/Iprat 2.5/0.5MG 3 ML AMPUL.NEB INHALE ×5 (04:12→19:31)
[2022-10-01] MEDS: Omeprazole 40 MG CAPSULE.DR PO (06:34)
[2022-10-01 07:07] LABS: Hematocrit 40.7 % (37.0-47.0); Hemoglobin 12.7 g/dl (12.0-16.0); Mean Corpuscular HGB Conc 31.2 g/dl (31.0-35.0); Mean Corpuscular Hemoglobin 28.5 pg (27.0-33.0); Mean Corpuscular Volume 91.3 fL (80.0-98.0); Mean Platelet Volume 9.6 fL (9.4-12.3); Platelet Count 193 X10*3/uL (160-400); Red Blood Count 4.46 X10*6/uL (4.20-5.50); Red Cell Distribution Width 13.2 % (11.0-16.0)
[2022-10-01 07:23] LABS: Glucose, Whole Blood 227 mg/dL (60-115)
[2022-10-01 07:26] LABS: Alanine Aminotransferase 12 U/L (0-31); Albumin Level 3.2 g/dL (3.5-5.0); Alkaline Phosphatase 85 U/L (39-117); Anion Gap 13 (12-20); Aspartate Amino Transferase 12 U/L (5-31); Bilirubin Total 0.2 mg/dL (0.0-1.0); Blood Urea Nitrogen 18 mg/dL (9-16); Calcium 9.6 mg/dL (8.4-10.2); Carbon Dioxide 27 mmol/L (22-29); Chloride 101 mmol/L (96-108); Creatinine Clr Calc Pharmacy 110.8; Estimated Glomerular Filt Rate > 60; Glucose Random 231 mg/dL (60-115); Potassium 4.2 mmol/L (3.3-5.1); Sodium 137 mmol/L (135-145); Total Protein 6.7 g/dL (6.5-8.0)
[2022-10-01] MEDS: Insulin Lispro 100 UNIT/ML 3 ML VIAL SUBCUT ×4 (08:37→21:37)
[2022-10-01] MEDS: methADONE HCl 20 MG/2 ML ORAL.CONC 50 MG PO (08:37)
[2022-10-01] MEDS: lamoTRIgine 25 MG TABLET 150 MG PO ×2 (08:37→21:37)
[2022-10-01] MEDS: dilTIAZem HCL CD 180 MG CAP.ER.24H 360 MG PO (08:37)
[2022-10-01] MEDS: hydrALAZINE HCl 25 MG TABLET PO (08:38)
[2022-10-01] MEDS: Loratadine 10 MG TABLET PO (08:38)
[2022-10-01] MEDS: lisinopriL 40 MG TABLET PO (08:38)
--- NOTE | 2022-10-01 09:32 | MHC.CM.PN ---
Pt admitted with SOB. Pt lives at home with her daughter, and has [employer] services, she uses a walker and has home O2. D/C plan pending further eval, but home is the goal with resumption of services. HCP on file. Pt will need assistance with transportation. PCP: Kelli Benavides
[2022-10-01] MEDS: Theophylline Anhydrous ER 300 MG TAB.ER.12H PO ×2 (10:37→22:12)
[2022-10-01] MEDS: Enoxaparin Sodium 40 MG/0.4 ML SYRINGE SUBCUT (10:37)
--- NOTE | 2022-10-01 11:37 | HO.PM.IMPN ---
Subjective Subjective Date of Service: 10/01/22 Interval History: seen and examined this morning follow up for salmonella bacteremia, gastroenteritis reports that diarrhea is slowing down Review of Systems Review of Systems: Yes all other systems are reviewed and are negative Constitutional Constitutional: Denies chills and Denies fever(s) ENT Ears, Nose, Mouth, and Throat: Denies dizziness Cardiovascular Cardiovascular: Denies chest pain and Denies palpitations Respiratory Respiratory: Denies cough Gastrointestinal Gastrointestinal: Reports abdominal pain, Reports diarrhea, Denies nausea and Denies vomiting Neurologic Neurologic: Denies dizziness Endocrine Endocrine: Denies palpitations Physical Exam Vital Signs: Vital Signs: Last Vital Signs Temp 97.5 F 10/01/22 11:29 Pulse 95 10/01/22 11:29 Resp 18 10/01/22 11:29 BP 146/92 H 10/01/22 11:29 Pulse Ox 93 10/01/22 11:29 O2 Del Method Nasal Cannula 10/01/22 11:29 O2 Flow Rate 4 10/01/22 11:29 FiO2 28 09/30/22 05:04 Oxygen Flow Rate 2 09/29/22 19:33 BMI result Body Mass Index 37.9 Appearing in no acute distress lung sounds rhonchi heart regular rate rhythm, clear S1, S2 positive bowel sounds, abdomen is soft, nontender neuro patient is alert x3, no focal deficits Objective Data Active Medications Acetaminophen (Acetaminophen 325 Mg Tablet) 650 mg PO Q6H PRN PRN Reason: Pain, Mild (Pain Scale 1-3) Albuterol Sulfate (Albuterol Sulfate (0.042%) 1.25 Mg/3 Ml Vial.Neb) 1.25 mg INHALE RQ4H PRN PRN Reason: Wheezing Albuterol/Ipratropium (Albuterol/Iprat 2.5/0.5mg 3 Ml Ampul.Neb) 3 ml INHALE RQ4H WHILE AWAKE REPLACED BY [facility] Last Admin: 10/01/22 07:57 Dose: 3 ml Documented By: WILLIAM Atorvastatin Calcium (Atorvastatin Calcium 20 Mg Tablet) 20 mg PO BEDTIME REPLACED BY [facility] Last Admin: 09/30/22 21:43 Dose: 20 mg Documented By: MORENO Bupropion HCl (Bupropion Hcl 75 Mg Tablet) 75 mg PO DAILY REPLACED BY [facility] Last Admin: 10/01/22 08:41 Dose: Not Given Documented By: KATIUSKA Non-Admin Reason: Patient Refused Clonazepam (Clonazepam 1 Mg Tablet) 1 mg PO BID PRN PRN Reason: Anxiety Last Admin: 09/30/22 21:43 Dose: 1 mg Documented By: MORENO Diltiazem HCl (Diltiazem Hcl Cd 180 Mg Cap.Er.24h) 360 mg PO DAILY REPLACED BY [facility]; Protocol Last Admin: 10/01/22 08:37 Dose: 360 mg Documented By: KATIUSKA Enoxaparin Sodium (Enoxaparin Sodium 40 Mg/0.4 Ml Syringe) 40 mg SUBCUT Q24H REPLACED BY [facility] Last Admin: 10/01/22 10:37 Dose: 40 mg Documented By: KATIUSKA Hydralazine HCl (Hydralazine Hcl 25 Mg Tablet) 25 mg PO DAILY REPLACED BY [facility]; Protocol Last Admin: 10/01/22 08:38 Dose: 25 mg Documented By: KATIUSKA Insulin Glargine (Insulin Glargine,Hum.Rec.Anlog 100 Unit/Ml 10 Ml Vial) 30 unit SUBCUT BEDTIME REPLACED BY [facility] Last Admin: 09/30/22 21:36 Dose: 30 unit Documented By: MORENO Insulin Human Lispro (Insulin Lispro 100 Unit/Ml 3 Ml Vial) 0 unit SUBCUT QIDACHS REPLACED BY [facility]; Protocol Last Admin: 10/01/22 08:37 Dose: 4 unit Documented By: KATIUSKA Lamotrigine (Lamotrigine 25 Mg Tablet) 150 mg PO BID REPLACED BY [facility] Last Admin: 10/01/22 08:37 Dose: 150 mg Documented By: KATIUSKA Lisinopril (Lisinopril 40 Mg Tablet) 40 mg PO DAILY REPLACED BY [facility]; Protocol Last Admin: 10/01/22 08:38 Dose: 40 mg Documented By: KATIUSKA Loratadine (Loratadine 10 Mg Tablet) 10 mg PO DAILY REPLACED BY [facility] Last Admin: 10/01/22 08:38 Dose: 10 mg Documented By: KATIUSKA Methadone HCl (Methadone Hcl 20 Mg/2 Ml Oral.Conc) 50 mg PO DAILY REPLACED BY [facility] Last Admin: 10/01/22 08:37 Dose: 50 mg Documented By: KATIUSKA Methylprednisolone Sodium Succinate (Methylprednisolone Sod Succ 125 Mg/2 Ml Vial) 60 mg IVPUSH Q8H REPLACED BY [facility] Last Admin: 10/01/22 10:37 Dose: 60 mg Documented By: KATIUSKA Montelukast Sodium (Montelukast Sodium 10 Mg Tablet) 10 mg PO BEDTIME REPLACED BY [facility] Last Admin: 09/30/22 21:43 Dose: 10 mg Documented By: MORENO Omeprazole (Omeprazole 40 Mg Capsule.Dr) 40 mg PO DAILY@0630 REPLACED BY [facility] Last Admin: 10/01/22 06:34 Dose: 40 mg Documented By: MORENO Pharmacy Consult (Consult Rx Perform Med Rec) 1 each MISCELLANE ONCE PRN PRN Reason: Consult order Sodium Chloride (0.9 % Sodium Chloride Flush 3 Ml Syringe) 3 ml IVFLUSH QSHIFT REPLACED BY [facility] Last Admin: 10/01/22 07:23 Dose: Not Given Documented By: KATIUSKA Non-Admin Reason: See Note Theophylline (Theophylline Anhydrous Er 400 Mg Tab.Er.24h) 400 mg PO BID REPLACED BY [facility] Theophylline (Theophylline Anhydrous Er 300 Mg Tab.Er.12h) 300 mg PO BID REPLACED BY [facility] Last Admin: 10/01/22 10:37 Dose: 300 mg Documented By: KATIUSKA Tiotropium [place] (Tiotropium [place] 2.5 Mcg Inhaler) 1 puff INHALE DAILY REPLACED BY [facility] Last Admin: 10/01/22 11:21 Dose: Not Given Documented By: KATIUSKA Non-Admin Reason: See Note Labs 10/01/22 06:50 10/01/22 06:49 Labs: Laboratory Results - last 24 hr 09/30/22 09/30/22 09/30/22 13:27 17:28 19:44 MCV MCH MCHC RDW Plt Count MPV Absolute Nucleated RBC Nucleated RBC % (auto) VBG pH 7.43 VBG pCO2 73 VBG pO2 75 VBG HCO3 48 H VBG O2 Saturation 96.0 VBG Base Excess 20.1 Anion Gap Estim Creat Clear Calc Estimated GFR POC Glucose 239 H 170 H Random Glucose Calcium Total Bilirubin AST ALT Alkaline Phosphatase Total Protein Albumin 10/01/22 10/01/22 10/01/22 06:49 06:50 07:20 MCV 91.3 MCH 28.5 MCHC 31.2 RDW 13.2 Plt Count 193 D MPV 9.6 Absolute Nucleated RBC 0.000 Nucleated RBC % (auto) 0.0 VBG pH VBG pCO2 VBG pO2 VBG HCO3 VBG O2 Saturation VBG Base Excess Anion Gap 13 Estim Creat Clear Calc 110.8 Estimated GFR > 60 POC Glucose 227 H Random Glucose 231 H Calcium 9.6 D Total Bilirubin 0.2 AST 12 ALT 12 Alkaline Phosphatase 85 Total Protein 6.7 Albumin 3.2 L Assessment and Plan (1) Hypercapnic respiratory failure: Status: Acute Plan The patient is a 52 yo F with a PMH of chronic hypoxic and hypercarbic respirator failure on PAP therapy at home, asthma/COPD overlap syndrome, CHITO, DM, HTN, morbid obesity and recurrent hospitalizations for worsening respiratory failure who presents to [facility] with complaints of headache and dyspnea for 2 days duration. She has been treated with BIPAP in the ED and now will be admitted for further work up. Acute on chronic hypoxic and hypercarbic respiratory failure VBG showing acute worsening of pCO2, desaturating to 90 while on BIPAP; improved with bipap in the ED tolerating 4L by NC, will continue the same use BIPAP when asleep or as needed Acute COPD exacerbation Denies tobacco use No evidence of pneumonia on chest imaging HTN continue baseline meds DM correction scale + lantus Chronic opiate dependence methadone once verified Mood continue baseline meds DVT pptx -- lovenox Full Code Med rec pending, will continue baseline meds as appropriate. continued hospital stay for tx of respiratory failure (requiring rescue bipap) therapy. Time Spent With Patient Time: Total time managing care of this patient today ____ minutes. Quality Stroke Does the patient have a stroke diagnosis?: No VTE Prior VTE?: No VTE Risk Level:: Medical - moderate - high VTE Device Contraindication: Treatment Not Indicated VTE Drug Contraindication: N/A - Med Ordered
[2022-10-01 11:38] LABS: Glucose, Whole Blood 240 mg/dL (60-115)
[2022-10-01 16:46] LABS: Glucose, Whole Blood 340 mg/dL (60-115)
[2022-10-01 20:57] LABS: Glucose, Whole Blood 245 mg/dL (60-115)
[2022-10-01] MEDS: clonazePAM 1 MG TABLET PO (21:36)
[2022-10-01] MEDS: Montelukast Sodium 10 MG TABLET PO (21:37)
[2022-10-01] MEDS: Atorvastatin Calcium 20 MG TABLET PO (21:37)
[2022-10-01] MEDS: Insulin Glargine,Hum.rec.anlog 100 UNIT/ML 10 ML VIAL 30 UNIT SUBCUT (21:37)
[2022-10-01] MEDS: 0.9 % Sodium Chloride Flush 3 ML SYRINGE IVFLUSH (21:42)
[2022-10-02] VITALS (12 sets, daily range): BP systolic 145–152; BP diastolic 77–106; PULSE 83–112; RESP 15–18; TEMP 35.7–36.6; O2SAT 92–98
[2022-10-02] MEDS: methylPREDNISolone Sod Succ 125 MG/2 ML VIAL 60 MG IVPUSH ×2 (03:55→17:02)
[2022-10-02] MEDS: Omeprazole 40 MG CAPSULE.DR PO (05:48)
[2022-10-02] MEDS: Albuterol/Iprat 2.5/0.5MG 3 ML AMPUL.NEB INHALE ×5 (06:20→18:42)
[2022-10-02 07:41] LABS: Glucose, Whole Blood 258 mg/dL (60-115)
[2022-10-02] MEDS: Insulin Lispro 100 UNIT/ML 3 ML VIAL SUBCUT ×5 (07:49→21:02)
[2022-10-02] MEDS: 0.9 % Sodium Chloride Flush 3 ML SYRINGE IVFLUSH ×3 (07:49→21:02)
[2022-10-02] MEDS: methADONE HCl 20 MG/2 ML ORAL.CONC 50 MG PO (07:51)
[2022-10-02] MEDS: dilTIAZem HCL CD 180 MG CAP.ER.24H 360 MG PO (07:52)
[2022-10-02] MEDS: lisinopriL 40 MG TABLET PO (07:52)
[2022-10-02] MEDS: hydrALAZINE HCl 25 MG TABLET PO (07:52)
[2022-10-02] MEDS: lamoTRIgine 25 MG TABLET 150 MG PO ×2 (07:52→21:01)
[2022-10-02] MEDS: Loratadine 10 MG TABLET PO (07:53)
[2022-10-02] MEDS: Theophylline Anhydrous ER 400 MG TAB.ER.24H PO ×2 (09:44→21:02)
--- NOTE | 2022-10-02 10:21 | MHC.CM.PN ---
Per ROUNDS discussion, Patient is not yet medically cleared for dc r/t respiratory status; Home/resume services is the goal and CM will continue to follow.
[2022-10-02 11:16] LABS: Glucose, Whole Blood 401 mg/dL (60-115)
--- NOTE | 2022-10-02 11:16 | P.PNIM_ITS ---
Subjective Subjective Date of Service: 10/02/22 Interval History: seen and examined this morning follow up for for respiratory failure, copd exacerbation breathing a little better today, still with cough Review of Systems Review of Systems: Yes all other systems are reviewed and are negative Constitutional Constitutional: Denies chills and Denies fever(s) ENT Ears, Nose, Mouth, and Throat: Denies dizziness Cardiovascular Cardiovascular: Denies chest pain, Denies palpitations and Reports dyspnea Respiratory Respiratory: Reports cough and Reports dyspnea Gastrointestinal Gastrointestinal: Denies abdominal pain, Denies nausea and Denies vomiting Neurologic Neurologic: Denies dizziness Endocrine Endocrine: Denies palpitations Physical Exam Vital Signs: Vital Signs: Last Vital Signs Temp 97.3 F 10/02/22 07:29 Pulse 100 10/02/22 08:08 Resp 16 10/02/22 08:08 BP 150/79 H 10/02/22 07:29 Pulse Ox 96 10/02/22 07:29 O2 Del Method Nasal Cannula 10/02/22 07:29 O2 Flow Rate 4 10/02/22 07:29 FiO2 28 10/02/22 04:00 Oxygen Flow Rate 2 09/29/22 19:33 BMI result Body Mass Index 37.9 Const: General: cooperative, comfortable, no acute distress, alert and awake Nutritional Appearance: overweight Orientation/consciousness: patient oriented x3 Resp: Other: b/l wheezing Effort & Inspection: normal respiratory effort, no respiratory distress and no use of accessory muscles Cardio: Rate: regular rate Heart sounds: S1 normal heart sound present and S2 normal heart sound present GI: Inspection: No distended Palpation (GI): Soft to palpation and nontender Neuro: General: patient oriented x3 and No CN's II-XI intact bilaterally Extrem: General: Yes no pedal edema Objective Data Active Medications Acetaminophen (Acetaminophen 325 Mg Tablet) 650 mg PO Q6H PRN PRN Reason: Pain, Mild (Pain Scale 1-3) Albuterol Sulfate (Albuterol Sulfate (0.042%) 1.25 Mg/3 Ml Vial.Neb) 1.25 mg INHALE RQ4H PRN PRN Reason: Wheezing Albuterol/Ipratropium (Albuterol/Iprat 2.5/0.5mg 3 Ml Ampul.Neb) 3 ml INHALE RQ4H WHILE AWAKE ANA Last Admin: 10/02/22 08:05 Dose: 3 ml Documented By: MITESH Atorvastatin Calcium (Atorvastatin Calcium 20 Mg Tablet) 20 mg PO BEDTIME [facility] Last Admin: 10/01/22 21:37 Dose: 20 mg Documented By: GANESH Bupropion HCl (Bupropion Hcl 75 Mg Tablet) 75 mg PO DAILY [facility] Last Admin: 10/02/22 07:56 Dose: Not Given Documented By: GETACHEW Non-Admin Reason: Patient Refused Clonazepam (Clonazepam 1 Mg Tablet) 1 mg PO BID PRN PRN Reason: Anxiety Last Admin: 10/01/22 21:36 Dose: 1 mg Documented By: GANESH Diltiazem HCl (Diltiazem Hcl Cd 180 Mg Cap.Er.24h) 360 mg PO DAILY [facility]; Protocol Last Admin: 10/02/22 07:52 Dose: 360 mg Documented By: GETACHEW Enoxaparin Sodium (Enoxaparin Sodium 40 Mg/0.4 Ml Syringe) 40 mg SUBCUT Q24H [facility] Last Admin: 10/01/22 10:37 Dose: 40 mg Documented By: KATIUSKA Hydralazine HCl (Hydralazine Hcl 25 Mg Tablet) 25 mg PO DAILY [facility]; Protocol Last Admin: 10/02/22 07:52 Dose: 25 mg Documented By: GETACHEW Insulin Glargine (Insulin Glargine,Hum.Rec.Anlog 100 Unit/Ml 10 Ml Vial) 30 unit SUBCUT BEDTIME [facility] Last Admin: 10/01/22 21:37 Dose: 30 unit Documented By: GANESH Insulin Human Lispro (Insulin Lispro 100 Unit/Ml 3 Ml Vial) 0 unit SUBCUT QIDACHS [facility]; Protocol Last Admin: 10/02/22 07:49 Dose: 6 unit Documented By: GETACHEW Lamotrigine (Lamotrigine 25 Mg Tablet) 150 mg PO BID [facility] Last Admin: 10/02/22 07:52 Dose: 150 mg Documented By: GETACHEW Lisinopril (Lisinopril 40 Mg Tablet) 40 mg PO DAILY [facility]; Protocol Last Admin: 10/02/22 07:52 Dose: 40 mg Documented By: GETACHEW Loratadine (Loratadine 10 Mg Tablet) 10 mg PO DAILY [facility] Last Admin: 10/02/22 07:53 Dose: 10 mg Documented By: GETACHEW Methadone HCl (Methadone Hcl 20 Mg/2 Ml Oral.Conc) 50 mg PO DAILY [facility] Last Admin: 10/02/22 07:51 Dose: 50 mg Documented By: GETACHEW Methylprednisolone Sodium Succinate (Methylprednisolone Sod Succ 125 Mg/2 Ml Vial) 60 mg IVPUSH Q8H [facility] Last Admin: 10/02/22 03:55 Dose: 60 mg Documented By: GANESH Montelukast Sodium (Montelukast Sodium 10 Mg Tablet) 10 mg PO BEDTIME [facility] Last Admin: 10/01/22 21:37 Dose: 10 mg Documented By: GANESH Omeprazole (Omeprazole 40 Mg Capsule.Dr) 40 mg PO DAILY@0630 [facility] Last Admin: 10/02/22 05:48 Dose: 40 mg Documented By: PILY Pharmacy Consult (Consult Rx Perform Med Rec) 1 each MISCELLANE ONCE PRN PRN Reason: Consult order Sodium Chloride (0.9 % Sodium Chloride Flush 3 Ml Syringe) 3 ml IVFLUSH QSHIFT [facility] Last Admin: 10/02/22 07:49 Dose: 3 ml Documented By: GETACHEW Theophylline (Theophylline Anhydrous Er 400 Mg Tab.Er.24h) 400 mg PO BID [facility] Last Admin: 10/02/22 09:44 Dose: 400 mg Documented By: GETACHEW Tiotropium [place] (Tiotropium [place] 2.5 Mcg Inhaler) 1 puff INHALE DAILY [facility] Last Admin: 10/02/22 08:04 Dose: 1 puff Documented By: MITESH Labs 10/01/22 06:50 10/01/22 06:49 Labs: Laboratory Results - last 24 hr 10/01/22 10/01/22 10/01/22 11:34 16:39 20:54 POC Glucose 240 H 340 H 245 H 10/02/22 10/02/22 07:32 11:09 POC Glucose 258 H 401 H* Assessment and Plan (1) Hypercapnic respiratory failure: Status: Acute (2) Asthma-COPD overlap syndrome: Status: Acute Plan The patient is a 52 yo F with a PMH of chronic hypoxic and hypercarbic resp irator failure on PAP therapy at home, asthma/COPD overlap syndrome, CHITO, DM, HTN, morbid obesity and recurrent hospitalizations for worsening respiratory failure who presents to [facility] ED with complaints of headache and dyspnea for 2 days duration. She has been treated with BIPAP in the ED and now will be admitted for further work up. Acute on chronic hypoxic and hypercarbic respiratory failure VBG showing acute worsening of pCO2, desaturating to 90 while on BIPAP; improved with bipap in the ED tolerating 4L by NC, will continue the same use BIPAP when asleep or as needed Acute COPD exacerbation Denies tobacco use No evidence of pneumonia on chest imaging continue scheduled breathing treatments and systemic steroids, will start to wean solu-medrol currently on 2-3L at baseline, currently on 4L, wean as tolerated HTN continue baseline meds DM with hyperglycemia POCs elevated due to system steroids correction scale + lantus Chronic opiate dependence methadone once verified Mood continue baseline meds DVT pptx -- lovenox Full Code attending - dr. young continued hospital stay for tx of respiratory failure (requiring rescue bipap) therapy. Time Spent With Patient Time: Total time managing care of this patient today ____ minutes. Quality Stroke Does the patient have a stroke diagnosis?: No VTE Prior VTE?: No VTE Risk Level:: Medical - moderate - high VTE Device Contraindication: Treatment Not Indicated VTE Drug Contraindication: N/A - Med Ordered
--- NOTE | 2022-10-02 11:48 | MHC.CM.PN ---
CM returned a call to Patient's [facility]/RN, who manages/home delivers Patient's Methadone ([phone]); CM will need to contact this # at time of dc to assist with resumption of home delivery of Methadone. CM will follow.
[2022-10-02] MEDS: Enoxaparin Sodium 40 MG/0.4 ML SYRINGE SUBCUT (12:04)
[2022-10-02 15:45] LABS: Glucose, Whole Blood 314 mg/dL (60-115)
[2022-10-02 20:19] LABS: Glucose, Whole Blood 342 mg/dL (60-115)
[2022-10-02] MEDS: Atorvastatin Calcium 20 MG TABLET PO (21:02)
[2022-10-02] MEDS: Insulin Glargine,Hum.rec.anlog 100 UNIT/ML 10 ML VIAL 30 UNIT SUBCUT (21:02)
[2022-10-02] MEDS: Montelukast Sodium 10 MG TABLET PO (21:02)
[2022-10-02] MEDS: clonazePAM 1 MG TABLET PO (22:58)
[2022-10-03] VITALS (7 sets, daily range): BP systolic 133–160; BP diastolic 80–89; PULSE 81–115; RESP 16–20; TEMP 36.3–36.8; O2SAT 94–99
[2022-10-03] MEDS: methylPREDNISolone Sod Succ 125 MG/2 ML VIAL 60 MG IVPUSH ×2 (05:37→16:58)
[2022-10-03] MEDS: Omeprazole 40 MG CAPSULE.DR PO (05:37)
[2022-10-03 07:49] LABS: Glucose, Whole Blood 295 mg/dL (60-115)
[2022-10-03] MEDS: Albuterol/Iprat 2.5/0.5MG 3 ML AMPUL.NEB INHALE ×2 (07:55→16:05)
[2022-10-03] MEDS: methADONE HCl 20 MG/2 ML ORAL.CONC 50 MG PO (08:19)
[2022-10-03] MEDS: Insulin Lispro 100 UNIT/ML 3 ML VIAL SUBCUT ×3 (08:20→16:58)
[2022-10-03] MEDS: 0.9 % Sodium Chloride Flush 3 ML SYRINGE IVFLUSH ×2 (08:20→16:59)
[2022-10-03] MEDS: hydrALAZINE HCl 25 MG TABLET PO (08:21)
[2022-10-03] MEDS: lisinopriL 40 MG TABLET PO (08:21)
[2022-10-03] MEDS: lamoTRIgine 25 MG TABLET 150 MG PO (08:21)
[2022-10-03] MEDS: Theophylline Anhydrous ER 400 MG TAB.ER.24H PO (08:21)
[2022-10-03] MEDS: dilTIAZem HCL CD 180 MG CAP.ER.24H 360 MG PO (08:21)
[2022-10-03] MEDS: Loratadine 10 MG TABLET PO (08:21)
--- NOTE | 2022-10-03 10:32 | MHC.CM.PN ---
Per ROUNDS discussion, Patient is medically cleared to go home today, with services. Patient is active with [facility], who has been made aware of today's dc.
[2022-10-03 11:30] LABS: Glucose, Whole Blood 339 mg/dL (60-115)
--- NOTE | 2022-10-03 11:48 | P.DS_ITS ---
DS: Providers Provider Date of Service: 10/03/22 Date of admission: 09/30/22 10:03 Date of discharge: 10/03/22 Primary care physician: Kelli Benavides MD Attending physician on discharge: Anant Jones Discharging clinician: Ginger Ma DS: Diagnosis Discharge Diagnosis (1) Hypercapnic respiratory failure: Status: Acute (2) Asthma-COPD overlap syndrome: Status: Acute DS: Summary Time Spent with Patient Time attestation: Total time managing care of this patient today ____ minutes. Discharge coordination time: Greater than 30 minutes Quality: Safe Use of Opioids Does Pt have an Active Cancer Diagnosis on the Problem List?: No Quality: Stroke Does the patient have a stroke diagnosis?: No Physical Exam Vital Signs: Vital Signs: Last Vital Signs Temp 97.3 F 10/03/22 11:14 Pulse 115 H 10/03/22 11:14 Resp 20 10/03/22 11:14 BP 133/89 10/03/22 11:14 Pulse Ox 98 10/03/22 11:14 O2 Del Method Nasal Cannula 10/03/22 11:14 O2 Flow Rate 3 10/03/22 11:14 FiO2 28 10/03/22 07:40 Oxygen Flow Rate 2 09/29/22 19:33 BMI result Body Mass Index 37.9 Const: General: cooperative, comfortable, no acute distress, alert and awake Nutritional Appearance: overweight Orientation/consciousness: patient oriented x3 Resp: Other: diminished lung sounds, no wheezing Effort & Inspection: normal respiratory effort, able to speak in complete sentences, no respiratory distress and no use of accessory muscles Cardio: Rate: regular rate Heart sounds: S1 normal heart sound present and S2 normal heart sound present GI: Inspection: No distended Palpation (GI): Soft to palpation and nontender Neuro: General: patient oriented x3 and No CN's II-XI intact bilaterally Extrem: General: Yes no pedal edema DS: Data Data Completed and Pending Completed studies during hospitalization [Text1]: Procedures Assistance with Respiratory Ventilation, 24-96 Consecutive Hours, Continuous Positive Airway Pressure (05/18/21) Assistance with Respiratory Ventilation, Less than 24 Consecutive Hours, Continu ous Positive Airway Pressure (07/28/22) Insertion of Endotracheal Airway into Trachea, Via Natural or Artificial Opening (12/21/21) Insertion of Infusion Device into Right Atrium, Percutaneous Approach (12/21/21) Insertion of Infusion Device into Right Brachial Vein, Percutaneous Approach (07/28/22) Insertion of Infusion Device into Superior Vena Cava, Percutaneous Approach (11/02/21) Introduction of Vasopressor into Peripheral Vein, Percutaneous Approach (12/21/21) Respiratory Ventilation, 24-96 Consecutive Hours (12/21/21) Ultrasonography of Superior Vena Cava, Guidance (12/21/21) Labs on day of discharge: Laboratory Results - last 24 hr 10/02/22 10/02/22 10/03/22 15:41 20:13 07:42 POC Glucose 314 H 342 H 295 H 10/03/22 11:15 POC Glucose 339 H Discharge Plan Discharge Anticipated Discharge Date/Time: 10/03/22 11:39 Patient Disposition: Home Health Service Discharge Diagnosis: acute on chronic hypercarbic respiratory failure Referrals: [facility] [Other] - 1 Week Kelli Benavides MD [Primary Care Provider] - 1 Week Discharge Medications: New prednisone 10 mg tablet See Taper PO DIRECTED Qty: 35 0RF Taper: Prednisone 40 mg daily for 5 Days and 0 Hour 30 mg daily for 5 Days and 0 Hour Rx Instructions: see taper instructions and then resume your previous dose of prednisone (20 mg daily) Continued Brovana 15 mcg/2 mL solution for nebulization 2 ml inhalation Q12H 30 Days Qty: 120 11RF Spiriva with HandiHaler 18 mcg capsule, w/inhalation device 1 cap inhalation DAILY Qty: 30 11RF budesonide 0.5 mg/2 mL suspension for nebulization 0.5 mg inhalation BID Qty: 120 11RF ipratropium-albuterol 0.5 mg-3 mg(2.5 mg base)/3 mL solution for nebulization 3 ml PO Q4H PRN (Reason: for wheezing) Qty: 540 6RF sodium chloride 7 % solution for nebulization 4 ml inhalation BID Qty: 240 11RF omeprazole 40 mg capsule,delayed release(DR/EC) 40 mg PO DAILY@0630 30 Days Qty: 30 6RF diltiazem HCl [Tiadylt ER] 360 mg capsule,extended release 24 hr 360 mg PO DAILY rosuvastatin 5 mg tablet 5 mg PO BEDTIME roflumilast [Daliresp] 500 mcg tablet 500 mcg PO DAILY insulin lispro [Humalog U-100 Insulin] 100 unit/mL solution See Protocol subcut TIDAC Protocol: Insulin Correction Scale Less than or equal to 110 ---- Give (units): 0 111 to 150 Give (units): 0 151 to 200 Give (units): 2 201 to 250 Give (units): 4 251 to 300 Give (units): 6 301 to 350 Give (units): 8 Greater than 350 Give (units): 10 Call MD if Blood Glucose > : 350 metformin 500 mg tablet extended release 24 hr 1,000 mg PO BID hydralazine 25 mg tablet 25 mg PO DAILY insulin lispro 100 unit/mL solution 4 unit subcut TIDAC methadone 10 mg/mL Concentrate 50 mg PO DAILY lisinopril 40 mg tablet 40 mg PO DAILY Serevent Diskus 50 mcg/dose Blister With Device 1 inh inhalation RBID 30 Days Qty: 60 2RF simethicone [Gas Relief (simethicone)] 80 mg Tablet,Chewable 80 mg PO QIDWMHS PRN (Reason: Abdominal Distention) Qty: 30 0RF lamotrigine 150 mg tablet 150 mg PO BID alendronate 70 mg tablet 70 mg PO QWEEK lidocaine 5 % adhesive patch,medicated 1 patch topical DAILY Rx Instructions: APPLY FOR 12 HOURS THEN REMOVE FOR 12 HOURS bupropion HCl 75 mg tablet 75 mg PO DAILY cholecalciferol (vitamin D3) 1,250 mcg (50,000 unit) capsule 1,250 mcg PO 2XW calcitonin (salmon) 200 unit/actuation spray,non-aerosol 1 spray intranasal DAILY Rx Instructions: one nostril every day, alternate sides. insulin glargine [Lantus U-100 Insulin] 100 unit/mL solution 45 unit subcut BEDTIME gabapentin 300 mg capsule 300 mg PO DAILY clonazepam 1 mg tablet 1 mg PO BID PRN (Reason: Anxiety) ibuprofen 600 mg tablet 600 mg PO Q8H PRN (Reason: Pain) montelukast 10 mg tablet 10 mg PO BEDTIME albuterol sulfate [ProAir HFA] 90 mcg/actuation HFA aerosol inhaler 2 puff inhalation Q4H PRN (Reason: Shortness Of Breath Or Wheezing) loratadine [Claritin] 10 mg tablet 10 mg PO DAILY theophylline 450 mg tablet extended release 12 hr 450 mg PO Q12H 30 Days Qty: 60 6RF Discontinued prednisone 10 mg tablet 20 mg PO DAILY Qty: 30 0RF Discharge Orders: Discharge Order (Routine); Ordered 10/03/22 Ordered By: Ginger Ma Activity on Discharge: As tolerated Stand Alone Forms: Patient Portal Discharge page Care Plan Goals: see below Health Concerns: Acute on chronic hypoxic and hypercarbic respiratory failure secondary to acute COPD exacerbation Plan of Treatment: complete prednisone taper and then returned to previous dose of prednisone (20 mg daily) call to schedule follow up with PCP continue to use BIPAP as prescribed everynight and with naps Assessment: see discharge summary
[2022-10-03] MEDS: Enoxaparin Sodium 40 MG/0.4 ML SYRINGE SUBCUT (12:13)
--- NOTE | 2022-10-03 14:38 | HO.SKINPHOTO ---
Location: Coccyx Category: Stage: Length: Width: Depth: cm Location: Category: Stage: Length: Width: Depth: cm Location: Category: Stage: Length: Width: Depth: cm Location: Category: Stage: Length: Width: Depth: cm Location: Category: Stage: Length: Width: Depth: cm Location: Category: Stage: Length: Width: Depth: cm
--- NOTE | 2022-10-03 14:40 | HO.SKINPHOTO ---
Location: Lower ABd Category: Stage: Length: Width: Depth: cm Location: Category: Stage: Length: Width: Depth: cm Location: Category: Stage: Length: Width: Depth: cm Location: Category: Stage: Length: Width: Depth: cm Location: Category: Stage: Length: Width: Depth: cm Location: Category: Stage: Length: Width: Depth: cm
[2022-10-03 16:53] LABS: Glucose, Whole Blood 324 mg/dL (60-115)
== END 2022-10-03 17:16 | disposition home health service (06) | DRG 140 ==
LOC: HO.ED 09-30 06:55 → HO.EDOVER 09-30 11:01 → HO.IMC 09-30 16:36
PROVIDERS: Nurse Practitioner Acute Care; Physician Assistant Medical; Admitting Provider Family Medicine; Emergency Provider Emergency Medicine; PCP Family Medicine; Visit Provider Physician Assistant Medical
DX: J44.1 Chronic obstructive pulmonary disease with (acute) exacerbation (principal); J96.21 Acute and chronic respiratory failure with hypoxia; E11.65 Type 2 diabetes mellitus with hyperglycemia; J96.22 Acute and chronic respiratory failure with hypercapnia; F39 Unspecified mood [affective] disorder; F11.20 Opioid dependence, uncomplicated; G47.33 Obstructive sleep apnea (adult) (pediatric); Z87.891 Personal history of nicotine dependence; Z79.4 Long term (current) use of insulin; Z79.899 Other long term (current) drug therapy
CPT/HCPCS: 36415; 71045; 80053; 81003; 82248; 82803; 82947; 83690; 83735; 83880; 84484; 85025; 85027; 85652; 86140; 94640; 94660; 99285; J0456; J0696; J1200; J1650; J1885; J2405; J2765; J2930

== ENCOUNTER → 2022-09-29 19:47 | Outpatient (BNV) | payer MEDICAID, SELFPAY | PROVIDERS: Emergency Provider Emergency Medicine; PCP Family Medicine; Visit Provider Family Medicine | DX: J96.92 Respiratory failure, unspecified with hypercapnia (principal); J44.9 Chronic obstructive pulmonary disease, unspecified | CPT/HCPCS: 99223; 99232; 99233; 99239 ==

== ENCOUNTER 2022-10-16 21:25 | Emergency (ER) | payer MEDICAID, SELFPAY ==
--- NOTE | 2022-10-16 21:37 | ECG_ITS ---
Test Reason : DYSPNEA Blood Pressure : / mmHG Vent. Rate : 114 BPM Atrial Rate : 114 BPM P-R Int : 124 ms QRS Dur : 116 ms QT Int : 348 ms P-R-T Axes : 061 027 050 degrees QTc Int : 479 ms Sinus tachycardia Incomplete right bundle branch block Possible Inferior infarct , age undetermined Abnormal ECG When compared with ECG of 16-SEP-2022 22:56, No significant changes seen Referred By: Generic ED Physician Electronically Signed By:RONALD SCHAFER
[2022-10-16 21:38] VITALS: BP 152/92; BP 159/60; PULSE 110; PULSE 114; RESP 20; TEMP 37.3; O2SAT 95; O2SAT 98; BMI 31.9
[2022-10-16 22:19] LABS: Basophils Absolute Auto 0.1 X10*3/uL (0.0-0.2); Basophils Percent Auto 0.4 % (0-2); Hematocrit 40.5 % (37.0-47.0); Hemoglobin 12.3 g/dl (12.0-16.0); Imm Gran Abs Auto 0.14 X10*3/uL (0.00-0.03); Imm Gran Pct Auto 0.7 % (0.0-0.4); Lymphocytes Absolute Auto 0.8 X10*3/uL (1.2-4.9); Lymphocytes Percent Auto 3.8 % (20-40); MANUAL DIFF FLAG SCAN; Mean Corpuscular HGB Conc 30.4 g/dl (31.0-35.0); Mean Corpuscular Volume 95.5 fL (80.0-98.0); Mean Platelet Volume 8.9 fL (9.4-12.3); Monocytes Absolute Auto 0.5 X10*3/uL (0.1-1.2); Monocytes Percent Auto 2.5 % (2-11); Neutrophils Absolute Auto 19.9 x10*3/uL (2.0-8.3); Neutrophils Percent Auto 92.6 % (45-73); Platelet Count 296 X10*3/uL (160-400); Red Blood Count 4.24 X10*6/uL (4.20-5.50); Red Cell Distribution Width 14.5 % (11.0-16.0); SCAN SMEAR FLAG 1; White Blood Count 21.5 X10*3/uL (4.8-10.8)
[2022-10-16 22:22] LABS: VBG Base Excess 14.4 mmol/L; VBG HCO3 42 mmol/L (22-26); VBG pCO2 63 mmHg; VBG pH 7.42 (7.32-7.43); VBG pO2 65 mmHg
[2022-10-16 22:24] LABS: Venous Blood Gas Refer to POC result
[2022-10-16 22:25] LABS: Alanine Aminotransferase 23 U/L (0-31); Alkaline Phosphatase 68 U/L (39-117); Anion Gap 18 (12-20); Aspartate Amino Transferase 15 U/L (5-31); Bilirubin Total 0.3 mg/dL (0.0-1.0); Blood Urea Nitrogen 19 mg/dL (9-16); Calcium 10.3 mg/dL (8.4-10.2); Carbon Dioxide 35 mmol/L (22-29); Chloride 94 mmol/L (96-108); Creatinine Clr Calc Pharmacy 107.4; Estimated Glomerular Filt Rate > 60; Glucose Random 166 mg/dL (60-115); Potassium 3.7 mmol/L (3.3-5.1); Sodium 143 mmol/L (135-145)
[2022-10-16 22:41] LABS: SLIDE REVIEW VERIFIED
[2022-10-16 23:11] VITALS: BP 144/68; PULSE 98; RESP 16; TEMP 37.3; O2SAT 93
--- NOTE | 2022-10-16 23:11 | ED.SOB ---
HPI - SOB/Dyspnea General Chief Complaint: Dyspnea Stated Complaint: sob, hx of copd, per ems Time Seen by Provider: 10/16/22 22:02 Source: patient Mode of arrival: ambulatory Limitations: no limitations History of Present Illness HPI Narrative: Patient history of asthma/COPD on home oxygen frequent ED admissions comes here for sudden onset of shortness of breath as usual in the past use the 2 rescue inhaler without much relief EMS administered 1 DuoNeb and Solu-Medrol 125 and feeling much better on arrival patient was saturating 99% on 2 L relax and sleeping Related Data Home Medications Medication Instructions Recorded Confirmed albuterol sulfate 90 mcg/actuation 2 puff inhalation Q4H PRN 12/30/19 09/30/22 aerosol inhaler (ProAir HFA) Shortness Of Breath Or Wheezing loratadine 10 mg tablet (Claritin) 10 mg PO DAILY 12/30/19 09/30/22 montelukast 10 mg tablet 10 mg PO BEDTIME 12/30/19 09/30/22 diltiazem HCl 360 mg capsule,24 360 mg PO DAILY 11/16/20 09/30/22 hr,extended release (Tiadylt ER) roflumilast 500 mcg tablet 500 mcg PO DAILY 11/16/20 09/30/22 (Daliresp) rosuvastatin 5 mg tablet 5 mg PO BEDTIME 11/16/20 09/30/22 insulin lispro 100 unit/mL See Protocol subcut TIDAC 12/14/20 09/30/22 subcutaneous solution (Humalog U-100 Insulin) metformin 500 mg tablet,extended 1,000 mg PO BID 05/18/21 09/30/22 release 24 hr methadone 10 mg/mL oral concentrate 50 mg PO DAILY 06/06/21 09/30/22 lisinopril 40 mg tablet 40 mg PO DAILY 07/30/21 09/30/22 hydralazine 25 mg tablet 25 mg PO DAILY 11/02/21 09/30/22 insulin lispro 100 unit/mL 4 unit subcut TIDAC 11/02/21 09/30/22 subcutaneous solution clonazepam 1 mg tablet 1 mg PO BID PRN Anxiety 06/28/22 09/30/22 ibuprofen 600 mg tablet 600 mg PO Q8H PRN Pain 06/28/22 09/30/22 alendronate 70 mg tablet 70 mg PO QWEEK 07/29/22 09/30/22 lamotrigine 150 mg tablet 150 mg PO BID 07/29/22 09/30/22 lidocaine 5 % topical patch 1 patch topical DAILY 07/29/22 09/30/22 bupropion HCl 75 mg tablet 75 mg PO DAILY 09/30/22 09/30/22 calcitonin (salmon) 200 1 spray intranasal DAILY 09/30/22 09/30/22 unit/actuation nasal spray cholecalciferol (vitamin D3) 1,250 1,250 mcg PO 2XW 09/30/22 09/30/22 mcg (50,000 unit) capsule gabapentin 300 mg capsule 300 mg PO DAILY 09/30/22 09/30/22 insulin glargine 100 unit/mL 45 unit subcut BEDTIME 09/30/22 09/30/22 subcutaneous solution (Lantus U-100 Insulin) Previous Rx's Medication Instructions Recorded salmeterol 50 mcg/dose blister 1 inh inhalation RBID 30 days #60 01/05/22 powder for inhalation (Serevent ea Diskus) simethicone 80 mg chewable tablet 80 mg PO QIDWMHS PRN Abdominal 01/05/22 (Gas Relief (simethicone)) Distention #30 tabs theophylline 450 mg 450 mg PO Q12H 30 days #60 tabs 05/08/22 tablet,extended release,12 hr arformoterol 15 mcg/2 mL solution 2 ml inhalation Q12H 30 days #120 06/07/22 for nebulization (Brovana) mL tiotropium bromide 18 mcg capsule 1 cap inhalation DAILY #30 ea 07/09/22 with inhalation device (Spiriva with HandiHaler) budesonide 0.5 mg/2 mL suspension 0.5 mg (2 mL) inhalation BID #120 08/15/22 for nebulization mL ipratropium 0.5 mg-albuterol 3 mg 3 ml PO Q4H PRN for wheezing #540 09/02/22 (2.5 mg base)/3 mL nebulization mL soln sodium chloride 7 % for 4 ml inhalation BID #240 mL 09/20/22 nebulization omeprazole 40 mg capsule,delayed 40 mg PO DAILY@0630 30 days #30 09/24/22 release caps prednisone 10 mg tablet See Taper PO DIRECTED #35 tabs 10/03/22 prednisone 20 mg tablet 40 mg PO DAILY #10 tabs 10/17/22 Allergies Allergy/AdvReac Type Severity Reaction Status Date / Time No Known Allergies Allergy Verified 05/27/22 10:15 [No Known Allergies*] Review of Systems Review of Systems: Yes all other systems are reviewed and are negative [facility] Past Medical History Medical History Abdominal pain Abnormal chest x-ray Acute and chronic respiratory failure with hypercapnia Acute respiratory failure Aspiration into airway Asthma-COPD overlap syndrome Bacteremia Cellulitis Chronic constipation Chronic respiratory failure Chronic respiratory failure Congestive heart failure COPD (chronic obstructive pulmonary disease) COPD exacerbation COPD mixed type Cor pulmonale Diabetes mellitus Essential hypertension Hyperlipidemia, unspecified Hypertensive cardiovascular disease Hypogammaglobulinemia Leukocytosis Limb swelling Morbid obesity Morbid obesity Opioid dependence CHITO (obstructive sleep apnea) Poor dentition Pulmonary congestion Pulmonary nodule Rib fractures Status asthmaticus with COPD (chronic obstructive pulmonary disease) Tobacco abuse Type 2 diabetes mellitus Type 2 diabetes mellitus with unspecified complications Vomiting Surgical History H/O tubal ligation Family History Family History Father Diabetes Other Asthma Social History Social History Household Members: Children Household Members Other:: daughter Housing: Apartment Do you presently have visiting nurse or other home services: Yes Unable to assess alcohol history related to: Unknown Alcohol intake: never Patient Tobacco Use Status: Former Tobacco user Quit Date: February 2022 Tobacco use type: Cigarette Cigarettes Per Day: 1 Years Smoked: 35 Smoked in Last 30 Days: No e-Cigarette/Vaping Use: Currently Using Second Hand Smoke Exposure: No Use of substances other than those prescribed or required for medical reasons: No Substance Use Type: Opiates Advance Directives: Yes Advance Directives on File: Yes Advance Directives Date on File: 06/12/21 Patient : No service: No Current occupational status: unemployed and disabled Physical Exam Vital Signs: Vital Signs: Last Vital Signs Temp 99.4 F 10/17/22 01:44 Pulse 100 10/17/22 01:44 Resp 18 10/17/22 01:44 BP 154/76 H 10/17/22 01:44 Pulse Ox 93 10/17/22 01:44 O2 Del Method Nasal Cannula 10/17/22 01:44 O2 Flow Rate 2 10/17/22 01:44 Oxygen Flow Rate 2 10/16/22 21:38 BMI result Body Mass Index 31.9 Appearance: Alert. Oriented X3. No acute distress. Eyes: No pallor weekly ENT: Pharynx normal. Oral Mucosa moist Neck: Normal inspection. Neck supple. CVS: Normal heart rate and rhythm. Pulses normal. Respiratory: No respiratory distress. Equal air entry bilateral, prolonged expiration Abdomen: Soft and nontender. Bowel sounds are present, no mass palpable, no CVA tenderness Skin: Skin warm and dry. Normal skin color. Normal skin turgor. Extremities: No lower extremity edema. No calf tenderness Neuro: Oriented X 3. No motor deficit. Medical Decision Making Medical Decision Making [facility] Narrative: Patient is stable COPD/asthma overlap at this time patient feeling much better after nebulizing treatment and Solu-Medrol by EMS discharge patient home advised to continue to treatment along with prednisone Lab Data [facility] Lab Attestation statement: I reviewed the patient's lab results. 10/16/22 21:59 10/16/22 21:59 Labs: Lab Results 10/16/22 10/16/22 10/16/22 Range/Units 21:47 21:59 21:59 WBC 21.5 H (4.8-10.8) X10*3/uL RBC 4.24 (4.20-5.50) X10*6/uL Hgb 12.3 (12.0-16.0) g/dl Hct 40.5 (37.0-47.0) % MCV 95.5 (80.0-98.0) fL MCH 29.0 (27.0-33.0) pg MCHC 30.4 L (31.0-35.0) g/dl RDW 14.5 (11.0-16.0) % Plt Count 296 D (160-400) X10*3/uL MPV 8.9 L (9.4-12.3) fL Immature Gran % (Auto) 0.7 H (0.0-0.4) % Neut % (Auto) 92.6 H (45-73) % Lymph % (Auto) 3.8 L (20-40) % [place] % (Auto) 2.5 (2-11) % Eos % (Auto) 0.0 (0-4) % Baso % (Auto) 0.4 (0-2) % Lymph # (Auto) 0.8 L (1.2-4.9) X10*3/uL [place] # (Auto) 0.5 (0.1-1.2) X10*3/uL Eos # (Auto) 0.0 (0.0-0.4) X10*3/uL Baso # (Auto) 0.1 (0.0-0.2) X10*3/uL Abs Immat Gran (auto) 0.14 H (0.00-0.03) X10*3/uL Absolute Neuts (auto) 19.9 H (2.0-8.3) x10*3/uL Absolute Nucleated RBC 0.000 (0.0-0.012) X10*3/uL Nucleated RBC % (auto) 0.0 (0.0-0.2) /100WBC Smear Tech's Comments VERIFIED VBG pH 7.42 (7.32-7.43) VBG pCO2 63 mmHg VBG pO2 65 mmHg VBG HCO3 42 H (22-26) mmol/L VBG O2 Saturation 92.0 % VBG Base Excess 14.4 mmol/L Sodium 143 (135-145) mmol/L Potassium 3.7 (3.3-5.1) mmol/L Chloride 94 L (96-108) mmol/L Carbon Dioxide 35 H (22-29) mmol/L Anion Gap 18 (12-20) BUN 19 H (9-16) mg/dL Creatinine 0.62 (0.5-1.4) mg/dL Estim Creat Clear Calc 107.4 Estimated GFR > 60 Random Glucose 166 H (60-115) mg/dL Calcium 10.3 H D (8.4-10.2) mg/dL Total Bilirubin 0.3 (0.0-1.0) mg/dL AST 15 (5-31) U/L ALT 23 (0-31) U/L Alkaline Phosphatase 68 (39-117) U/L Total Protein 7.0 (6.5-8.0) g/dL Albumin 4.0 (3.5-5.0) g/dL Independent Interpretation I performed an independent interpretation of an: EKG Interpretation: Sinus tachycardia heart rate 114 beats per minute incomplete right bundle branch block no acute ST wave changes no acute ischemia Discharge Plan Discharge Clinical Impression: Asthma-COPD overlap syndrome Patient Disposition: Home, Self-Care Instructions: COPD (Chronic Obstructive Pulmonary Disease) (ED) Additional Instructions: Continue nebulizing and inhalers as prescribed Prednisone as prescribed Follow-up with PCP/pulmonology Prescriptions: New prednisone 20 mg tablet 40 mg PO DAILY Qty: 10 0RF No Action Brovana 15 mcg/2 mL solution for nebulization 2 ml inhalation Q12H 30 Days Qty: 120 11RF Spiriva with HandiHaler 18 mcg capsule, w/inhalation device 1 cap inhalation DAILY Qty: 30 11RF budesonide 0.5 mg/2 mL suspension for nebulization 0.5 mg inhalation BID Qty: 120 11RF ipratropium-albuterol 0.5 mg-3 mg(2.5 mg base)/3 mL solution for nebulization 3 ml PO Q4H PRN (Reason: for wheezing) Qty: 540 6RF sodium chloride 7 % solution for nebulization 4 ml inhalation BID Qty: 240 11RF omeprazole 40 mg capsule,delayed release(DR/EC) 40 mg PO DAILY@0630 30 Days Qty: 30 6RF diltiazem HCl [Tiadylt ER] 360 mg capsule,extended release 24 hr 360 mg PO DAILY rosuvastatin 5 mg tablet 5 mg PO BEDTIME roflumilast [Daliresp] 500 mcg tablet 500 mcg PO DAILY insulin lispro [Humalog U-100 Insulin] 100 unit/mL solution See Protocol subcut TIDA Protocol: Insulin Correction Scale Less than or equal to 110 ---- Give (units): 0 111 to 150 Give (units): 0 151 to 200 Give (units): 2 201 to 250 Give (units): 4 251 to 300 Give (units): 6 301 to 350 Give (units): 8 Greater than 350 Give (units): 10 Call MD if Blood Glucose > : 350 metformin 500 mg tablet extended release 24 hr 1,000 mg PO BID hydralazine 25 mg tablet 25 mg PO DAILY insulin lispro 100 unit/mL solution 4 unit subcut TIDAC methadone 10 mg/mL Concentrate 50 mg PO DAILY lisinopril 40 mg tablet 40 mg PO DAILY Serevent Diskus 50 mcg/dose Blister With Device 1 inh inhalation RBID 30 Days Qty: 60 2RF simethicone [Gas Relief (simethicone)] 80 mg Tablet,Chewable 80 mg PO QIDWMHS PRN (Reason: Abdominal Distention) Qty: 30 0RF lamotrigine 150 mg tablet 150 mg PO BID alendronate 70 mg tablet 70 mg PO QWEEK lidocaine 5 % adhesive patch,medicated 1 patch topical DAILY Rx Instructions: APPLY FOR 12 HOURS THEN REMOVE FOR 12 HOURS bupropion HCl 75 mg tablet 75 mg PO DAILY cholecalciferol (vitamin D3) 1,250 mcg (50,000 unit) capsule 1,250 mcg PO 2XW calcitonin (salmon) 200 unit/actuation spray,non-aerosol 1 spray intranasal DAILY Rx Instructions: one nostril every day, alternate sides. insulin glargine [Lantus U-100 Insulin] 100 unit/mL solution 45 unit subcut BEDTIME gabapentin 300 mg capsule 300 mg PO DAILY prednisone 10 mg tablet See Taper PO DIRECTED Qty: 35 0RF Taper: Prednisone 40 mg daily for 5 Days and 0 Hour 30 mg daily for 5 Days and 0 Hour Rx Instructions: see taper instructions and then resume your previous dose of prednisone (20 mg daily) clonazepam 1 mg tablet 1 mg PO BID PRN (Reason: Anxiety) ibuprofen 600 mg tablet 600 mg PO Q8H PRN (Reason: Pain) montelukast 10 mg tablet 10 mg PO BEDTIME albuterol sulfate [ProAir HFA] 90 mcg/actuation HFA aerosol inhaler 2 puff inhalation Q4H PRN (Reason: Shortness Of Breath Or Wheezing) loratadine [Claritin] 10 mg tablet 10 mg PO DAILY theophylline 450 mg tablet extended release 12 hr 450 mg PO Q12H 30 Days Qty: 60 6RF
--- NOTE | 2022-10-17 01:22 | MHC.EDTECH ---
Call out to [facility] @0120 to book BLS transport back home. ETA of 1 hour was given
[2022-10-17 01:44] VITALS: BP 154/76; PULSE 100; RESP 18; TEMP 37.4; O2SAT 93
[2022-10-17] MEDS: Albuterol/Iprat 2.5/0.5MG 3 ML AMPUL.NEB INHALE (02:02)
[2022-10-17 02:04] VITALS: PULSE 105; RESP 24; O2SAT 94
== END 2022-10-17 02:44 | disposition home or self-care (01) ==
PROVIDERS: Emergency Provider Internal Medicine
DX: J44.9 Chronic obstructive pulmonary disease, unspecified (principal); R00.0 Tachycardia, unspecified; R06.02 Shortness of breath; Z87.891 Personal history of nicotine dependence; Z79.899 Other long term (current) drug therapy
CPT/HCPCS: 36415; 80053; 82803; 85025; 93005; 94640; 99284; 99285

== ENCOUNTER → 2022-10-16 21:37 | Outpatient (BNV) | payer MEDICAID, SELFPAY | PROVIDERS: Emergency Provider Internal Medicine; Visit Provider Internal Medicine | DX: R00.0 Tachycardia, unspecified (principal); R94.31 Abnormal electrocardiogram [ECG] [EKG] | CPT/HCPCS: 93010 ==

== ENCOUNTER 2022-10-19 16:50 | Inpatient (IN) | payer MEDICAID, SELFPAY ==
[2022-10-19] VITALS (10 sets, daily range): BP systolic 116–160; BP diastolic 46–86; PULSE 80–120; RESP 14–24; TEMP 37; O2SAT 90–100; BMI 24.7
--- NOTE | ~2022-10-19 | XR_ITS ---
EXAMINATION: CHEST ONE VIEW AND ABDOMEN 2 VIEWS CLINICAL INFORMATION: Shortness of breath and constipation COMPARISON: 08/31/2022 TECHNIQUE: Single portable chest and 2 views abdomen were obtained. FINDINGS: No significant abnormality is noted involving the heart, lungs, mediastinum, bony thorax or soft tissues. No free air. Bowel gas pattern is notable for moderate stool filled colon throughout. No small bowel dilatation. XR/XR KUB IMPRESSION: Unremarkable chest radiograph. Moderate stool retention..
--- NOTE | ~2022-10-19 | XR_ITS ---
EXAMINATION: CHEST ONE VIEW AND ABDOMEN 2 VIEWS CLINICAL INFORMATION: Shortness of breath and constipation COMPARISON: 08/31/2022 TECHNIQUE: Single portable chest and 2 views abdomen were obtained. FINDINGS: No significant abnormality is noted involving the heart, lungs, mediastinum, bony thorax or soft tissues. No free air. Bowel gas pattern is notable for moderate stool filled colon throughout. No small bowel dilatation. XR/XR chest 1V IMPRESSION: Unremarkable chest radiograph. Moderate stool retention..
--- NOTE | 2022-10-19 17:02 | ECG_ITS ---
Test Reason : SYNCOPE Blood Pressure : / mmHG Vent. Rate : 112 BPM Atrial Rate : 112 BPM P-R Int : 126 ms QRS Dur : 110 ms QT Int : 318 ms P-R-T Axes : 069 029 048 degrees QTc Int : 434 ms Sinus tachycardia Incomplete right bundle branch block Possible Inferior infarct (cited on or before 16-OCT-2022) Abnormal ECG When compared with ECG of 16-OCT-2022 21:43, No significant change was found Referred By: Sabrina Aguirre Electronically Signed By:RONALD SCHAFER
[2022-10-19] MEDS: Albuterol Sulfate 7.5 MG, Albuterol/Iprat 2.5/0.5MG 3 ML 3 ML INHALE (17:11)
--- NOTE | 2022-10-19 17:20 | ED_ITS ---
HPI - Asthma General Chief Complaint: Dyspnea Stated Complaint: asthma copd vomiting Time Seen by Provider: 10/19/22 16:59 Source: patient and old records reviewed Mode of arrival: EMS Limitations: no limitations History of Present Illness HPI Narrative: 52 yo female with PMH of asthma-COPD overlap syndrome O2 and CPAP use dependent on chronic steroids current dose 20mg daily, quit smoking recently, HTN, DM, obesity, chronic pain syndrome here with wheezing x 4 days no sputum changes no fevers no chest pain. patient also c/o constipation x 3 days but passing gas felt nauseated today so she didn't wear CPAP. end tidal 71 with EMS weraing her normal 3L NC on arrival. MD complaint: asthma attack and shortness of breath Onset (ago): day(s) (4) Severity: moderate Context: none known Associated symptoms: dry cough Asthma History: adult onset Treatments Prior to Arrival: inhaled bronchodilator and oxygen Related Data Home Medications Medication Instructions Recorded Confirmed albuterol sulfate 90 mcg/actuation 2 puff inhalation Q4H PRN 12/30/19 09/30/22 aerosol inhaler (ProAir HFA) Shortness Of Breath Or Wheezing loratadine 10 mg tablet (Claritin) 10 mg PO DAILY 12/30/19 09/30/22 montelukast 10 mg tablet 10 mg PO BEDTIME 12/30/19 09/30/22 diltiazem HCl 360 mg capsule,24 360 mg PO DAILY 11/16/20 09/30/22 hr,extended release (Tiadylt ER) roflumilast 500 mcg tablet 500 mcg PO DAILY 11/16/20 09/30/22 (Daliresp) rosuvastatin 5 mg tablet 5 mg PO BEDTIME 11/16/20 09/30/22 insulin lispro 100 unit/mL See Protocol subcut TIDAC 12/14/20 09/30/22 subcutaneous solution (Humalog U-100 Insulin) metformin 500 mg tablet,extended 1,000 mg PO BID 05/18/21 09/30/22 release 24 hr methadone 10 mg/mL oral concentrate 50 mg PO DAILY 06/06/21 09/30/22 lisinopril 40 mg tablet 40 mg PO DAILY 07/30/21 09/30/22 hydralazine 25 mg tablet 25 mg PO DAILY 11/02/21 09/30/22 insulin lispro 100 unit/mL 4 unit subcut TIDAC 11/02/21 09/30/22 subcutaneous solution clonazepam 1 mg tablet 1 mg PO BID PRN Anxiety 06/28/22 09/30/22 ibuprofen 600 mg tablet 600 mg PO Q8H PRN Pain 06/28/22 09/30/22 alendronate 70 mg tablet 70 mg PO QWEEK 07/29/22 09/30/22 lamotrigine 150 mg tablet 150 mg PO BID 07/29/22 09/30/22 lidocaine 5 % topical patch 1 patch topical DAILY 07/29/22 09/30/22 bupropion HCl 75 mg tablet 75 mg PO DAILY 09/30/22 09/30/22 calcitonin (salmon) 200 1 spray intranasal DAILY 09/30/22 09/30/22 unit/actuation nasal spray cholecalciferol (vitamin D3) 1,250 1,250 mcg PO 2XW 09/30/22 09/30/22 mcg (50,000 unit) capsule gabapentin 300 mg capsule 300 mg PO DAILY 09/30/22 09/30/22 insulin glargine 100 unit/mL 45 unit subcut BEDTIME 09/30/22 09/30/22 subcutaneous solution (Lantus U-100 Insulin) Previous Rx's Medication Instructions Recorded salmeterol 50 mcg/dose blister 1 inh inhalation RBID 30 days #60 01/05/22 powder for inhalation (Serevent ea Diskus) simethicone 80 mg chewable tablet 80 mg PO QIDWMHS PRN Abdominal 01/05/22 (Gas Relief (simethicone)) Distention #30 tabs theophylline 450 mg 450 mg PO Q12H 30 days #60 tabs 05/08/22 tablet,extended release,12 hr arformoterol 15 mcg/2 mL solution 2 ml inhalation Q12H 30 days #120 06/07/22 for nebulization (Brovana) mL tiotropium bromide 18 mcg capsule 1 cap inhalation DAILY #30 ea 07/09/22 with inhalation device (Spiriva with HandiHaler) budesonide 0.5 mg/2 mL suspension 0.5 mg (2 mL) inhalation BID #120 08/15/22 for nebulization mL ipratropium 0.5 mg-albuterol 3 mg 3 ml PO Q4H PRN for wheezing #540 09/02/22 (2.5 mg base)/3 mL nebulization mL soln sodium chloride 7 % for 4 ml inhalation BID #240 mL 09/20/22 nebulization omeprazole 40 mg capsule,delayed 40 mg PO DAILY@0630 30 days #30 09/24/22 release caps prednisone 10 mg tablet See Taper PO DIRECTED #35 tabs 10/03/22 prednisone 20 mg tablet 40 mg PO DAILY #10 tabs 10/17/22 Allergies Allergy/AdvReac Type Severity Reaction Status Date / Time No Known Allergies Allergy Verified 10/19/22 17:06 [No Known Allergies*] Review of Systems Review of Systems: Constitutional : No Fever, No Chills ENT/Mouth : No Hoarseness, No sore throat, No Rhinorrhea Eyes: No Redness, No Discharge, No Vision Changes Cardiovascular : No Chest Pain, positive SOB, positive Dyspnea on Exertion, No Edema Respiratory : positive Cough, No Sputum, positive Wheezing, Gastrointestinal : No Nausea, No Vomiting, No Diarrhea, No abdominal Pain, pos constipation Genitourinary : No Dysuria, No Hematuria Musculoskeletal : No joint pain, No Myalgias Skin : No rash Neuro : No Weakness, No Numbness, No Headache Psych : No anxiety, depression Heme/Lymph: No Bruising, No Bleeding Endocrine : No Polyuria, No Polydipsia All other systems reviewed and are negative PMFSH Past Medical History Attestation statement: The following information was validated with the patient. Source: old records reviewed Medical History Abdominal pain Abnormal chest x-ray Acute and chronic respiratory failure with hypercapnia Acute respiratory failure Aspiration into airway Asthma-COPD overlap syndrome Bacteremia Cellulitis Chronic constipation Chronic respiratory failure Chronic respiratory failure Congestive heart failure COPD (chronic obstructive pulmonary disease) COPD exacerbation COPD mixed type Cor pulmonale Diabetes mellitus Essential hypertension Hyperlipidemia, unspecified Hypertensive cardiovascular disease Hypogammaglobulinemia Leukocytosis Limb swelling Morbid obesity Morbid obesity Opioid dependence CHITO (obstructive sleep apnea) Poor dentition Pulmonary congestion Pulmonary nodule Rib fractures Status asthmaticus with COPD (chronic obstructive pulmonary disease) Tobacco abuse Type 2 diabetes mellitus Type 2 diabetes mellitus with unspecified complications Vomiting Surgical History H/O tubal ligation Family History Family History Father Diabetes Other Asthma Social History Social History Household Members: Children Household Members Other:: daughter Housing: Apartment Do you presently have visiting nurse or other home services: Yes Unable to assess alcohol history related to: Unknown Alcohol intake: never Patient Tobacco Use Status: Former Tobacco user Quit Date: February 2022 Tobacco use type: Cigarette Cigarettes Per Day: 1 Years Smoked: 35 e-Cigarette/Vaping Use: Currently Using Second Hand Smoke Exposure: No Substance Use Type: Opiates Advance Directives: Yes Advance Directives on File: Yes Advance Directives Date on File: 06/12/21 service: No Current occupational status: unemployed and disabled Physical Exam Vital Signs: Vital Signs: Last Vital Signs Temp 98.6 F 10/19/22 16:58 Pulse 110 H 10/19/22 23:00 Resp 20 10/19/22 23:00 BP 142/74 H 10/19/22 23:00 Pulse Ox 94 10/19/22 23:00 O2 Del Method BiPAP 10/19/22 23:00 Oxygen Flow Rate 3 10/19/22 16:58 BMI result Body Mass Index 24.7 Appearance: Alert. Oriented X3. Mild acute distress. Eyes: Pupils equal, round and reactive to light. ENT: Pharynx normal. Neck: Normal inspection. Neck supple. CVS: tachycardic heart rate and rhythm. Pulses normal. Respiratory: mild respiratory distress - retractions and tachypnea. Breath sounds diminished throughout very tight Abdomen: Soft and nontender mild distention Skin: Skin warm and dry. Normal skin color. Normal skin turgor. Extremities: No lower extremity edema. No calf ttp Neuro: Oriented X 3. No motor deficit. No sensory deficit. Course Course Course Narrative: doing better Reevaluation(s) Reevaluation #1: WBC chronic due to steroids and not infection or severe sepsis Reevaluation #2: will start on NIPPV the patient is working harder 83% on 3L NC ABG ordered Reevaluation #3: R lung more opacity noted possible infection will start on ceftriaxone and doxycycline 737pm Additional Reevaluation(s): discussed with Dr. Pendleton doesn't feel this is rescue I will repeat ABG in 1 hour and she can likely go to the floor she is at her baseline repeat ABG worse will admit to ICU Medications Administered Generic Name Dose Route Start Last Admin Trade Name Jaylan PRN Reason Stop Dose Admin Enoxaparin Sodium 40 mg 10/19/22 23:00 10/19/22 23:28 Enoxaparin Sodium 40 Mg/0.4 Ml Syringe SUBCUT 40 mg Q24H ANA Administration Azithromycin 500 mg/ Sodium 250 mls @ 125 mls/hr 10/19/22 22:00 10/19/22 23:27 Chloride IV 125 mls/hr Q24H ANA Administration Discontinued Medications Generic Name Dose Route Start Last Admin Trade Name Jaylan PRN Reason Stop Dose Admin Acetazolamide 250 mg 10/19/22 22:33 10/19/22 23:30 Acetazolamide Sodium 500 Mg Vial IVPUSH 10/19/22 22:34 250 mg ONCE ONE Administration Albuterol Sulfate 2.5 mg/ 5 mg 10/19/22 19:54 10/19/22 20:07 Albuterol Sulfate 2.5 mg INHALE 10/19/22 19:55 5 mg ONCE ONE Administration Albuterol Sulfate 7.5 mg/ 0 mg 10/19/22 16:59 10/19/22 17:11 Albuterol/Ipratropium 3 ml INHALE 10/19/22 17:00 1 each ONCE ONE Administration Magnesium Sulfate 2 gm in 50 mls @ 150 mls/hr 10/19/22 17:11 10/19/22 19:38 Magnesium Sulfate/H2o IV 10/19/22 17:30 Infused ONCE ONE Infusion Ceftriaxone Sodium 1 gm/ 50 mls @ 100 mls/hr 10/19/22 19:38 10/19/22 20:35 Sodium Chloride IV 10/19/22 20:07 Infused ONCE ONE Infusion Doxycycline Hyclate 100 mg/ 250 mls @ 166.67 mls/hr 10/19/22 19:38 10/19/22 23:47 Sodium Chloride IV 10/19/22 21:07 Infused ONCE ONE Infusion Methylprednisolone Sodium Succinate 60 mg 10/19/22 17:11 10/19/22 18:17 Methylprednisolone Sod Succ 125 Mg/2 Ml Vial IVPUSH 10/19/22 17:12 60 mg ONCE ONE Administration Medical Decision Making Medical Decision Making MDM Narrative: 52 yo female with PMH of asthma-COPD overlap syndrome O2 and CPAP use dependent on chronic steroids current dose 20mg daily, quit smoking recently, HTN, DM, obesity, chronic pain syndrome, comes in with 4 days of worsening breathing cough, notes constipation for 3 days passing gas not responding to miralax notes she feel nauseated today so she didn't wear CPAP - given zofran with EMS. She has not fevers, no chest pain, no change in sputum production. She will be given IV steroids, magnesium, labs, CXR, EKG and hour long neb. KUB for constipation likely med related. Planned admit for asthma. Differential Diagnosis Differential Diagnoses: The differential diagnosis associated with the presentation includes asthma, viral bronchitis, chronic asthma and chronic respiratory failure Admission/Observation Consideration of admission/observation: Escalation of care including admission/observation considered given work of breathing will admit for further treatments and work up Consult Healthcare Provider Management of the patient was discussed with: Hospitalist Lab Data MDM Lab Attestation statement: I reviewed the patient's lab results. 10/19/22 17:45 10/19/22 17:46 Labs: Lab Results 10/19/22 10/19/22 10/19/22 Range/Units 17:45 17:45 17:45 WBC 22.0 H (4.8-10.8) X10*3/uL RBC 4.20 (4.20-5.50) X10*6/uL Hgb 12.2 (12.0-16.0) g/dl Hct 40.0 (37.0-47.0) % MCV 95.2 (80.0-98.0) fL MCH 29.0 (27.0-33.0) pg MCHC 30.5 L (31.0-35.0) g/dl RDW 14.3 (11.0-16.0) % Plt Count 311 (160-400) X10*3/uL MPV 9.1 L (9.4-12.3) fL Immature Gran % (Auto) 1.0 H (0.0-0.4) % Neut % (Auto) 90.0 H (45-73) % Lymph % (Auto) 3.2 L (20-40) % [place] % (Auto) 5.4 (2-11) % Eos % (Auto) 0.0 (0-4) % Baso % (Auto) 0.4 (0-2) % Lymph # (Auto) 0.7 L (1.2-4.9) X10*3/uL [place] # (Auto) 1.2 (0.1-1.2) X10*3/uL Eos # (Auto) 0.0 (0.0-0.4) X10*3/uL Baso # (Auto) 0.1 (0.0-0.2) X10*3/uL Abs Immat Gran (auto) 0.22 H (0.00-0.03) X10*3/uL Absolute Neuts (auto) 19.8 H (2.0-8.3) x10*3/uL Absolute Nucleated RBC 0.000 (0.0-0.012) X10*3/uL Nucleated RBC % (auto) 0.0 (0.0-0.2) /100WBC O2 Saturation % ABG pH at Pt Temp (7.35-7.45) ABG pCO2 at Pt Temp (32-45) mmHg ABG pO2 at Pt Temp (83-108) mmHg ABG HCO3 (22-26) mmol/L ABG Base Excess (Actual) mmol/L VBG pH (7.32-7.43) VBG pCO2 mmHg VBG pO2 mmHg VBG HCO3 (22-26) mmol/L VBG O2 Saturation % VBG Base Excess mmol/L Sodium (135-145) mmol/L Potassium (3.3-5.1) mmol/L Chloride (96-108) mmol/L Carbon Dioxide (22-29) mmol/L Anion Gap (12-20) BUN (9-16) mg/dL Creatinine (0.5-1.4) mg/dL Estim Creat Clear Calc Estimated GFR Random Glucose (60-115) mg/dL Lactic Acid 1.3 (0.5-2.0) mmol/L Calcium (8.4-10.2) mg/dL Magnesium (1.6-2.6) mg/dL Total Bilirubin (0.0-1.0) mg/dL Direct Bilirubin (0.0-0.5) mg/dL AST (5-31) U/L ALT (0-31) U/L Alkaline Phosphatase (39-117) U/L Troponin I High Sens (<3.5-17.0) ng/L B-Natriuretic Peptide 12 (<100) pg/mL Total Protein (6.5-8.0) g/dL Albumin (3.5-5.0) g/dL Procalcitonin ng/mL 10/19/22 10/19/22 10/19/22 Range/Units 17:45 17:46 17:55 WBC (4.8-10.8) X10*3/uL RBC (4.20-5.50) X10*6/uL Hgb (12.0-16.0) g/dl Hct (37.0-47.0) % MCV (80.0-98.0) fL MCH (27.0-33.0) pg MCHC (31.0-35.0) g/dl RDW (11.0-16.0) % Plt Count (160-400) X10*3/uL MPV (9.4-12.3) fL Immature Gran % (Auto) (0.0-0.4) % Neut % (Auto) (45-73) % Lymph % (Auto) (20-40) % [place] % (Auto) (2-11) % Eos % (Auto) (0-4) % Baso % (Auto) (0-2) % Lymph # (Auto) (1.2-4.9) X10*3/uL [place] # (Auto) (0.1-1.2) X10*3/uL Eos # (Auto) (0.0-0.4) X10*3/uL Baso # (Auto) (0.0-0.2) X10*3/uL Abs Immat Gran (auto) (0.00-0.03) X10*3/uL Absolute Neuts (auto) (2.0-8.3) x10*3/uL Absolute Nucleated RBC (0.0-0.012) X10*3/uL Nucleated RBC % (auto) (0.0-0.2) /100WBC O2 Saturation % ABG pH at Pt Temp (7.35-7.45) ABG pCO2 at Pt Temp (32-45) mmHg ABG pO2 at Pt Temp (83-108) mmHg ABG HCO3 (22-26) mmol/L ABG Base Excess (Actual) mmol/L VBG pH 7.67 H* (7.32-7.43) VBG pCO2 26 mmHg VBG pO2 122 mmHg VBG HCO3 30 H (22-26) mmol/L VBG O2 Saturation 100.0 % VBG Base Excess 11.1 mmol/L Sodium 141 (135-145) mmol/L Potassium 4.0 (3.3-5.1) mmol/L Chloride 97 (96-108) mmol/L Carbon Dioxide 31 H (22-29) mmol/L Anion Gap 17 (12-20) BUN 26 H (9-16) mg/dL Creatinine 0.60 (0.5-1.4) mg/dL Estim Creat Clear Calc 90.7 Estimated GFR > 60 Random Glucose 101 (60-115) mg/dL Lactic Acid (0.5-2.0) mmol/L Calcium 9.8 (8.4-10.2) mg/dL Magnesium 1.9 (1.6-2.6) mg/dL Total Bilirubin 0.2 (0.0-1.0) mg/dL Direct Bilirubin < 0.2 (0.0-0.5) mg/dL AST 13 (5-31) U/L ALT 20 (0-31) U/L Alkaline Phosphatase 68 (39-117) U/L Troponin I High Sens 22.4 H D (<3.5-17.0) ng/L B-Natriuretic Peptide (<100) pg/mL Total Protein 6.9 (6.5-8.0) g/dL Albumin 3.9 (3.5-5.0) g/dL Procalcitonin 0.05 ng/mL 10/19/22 10/19/22 10/19/22 Range/Units 18:56 19:47 21:49 WBC (4.8-10.8) X10*3/uL RBC (4.20-5.50) X10*6/uL Hgb (12.0-16.0) g/dl Hct (37.0-47.0) % MCV (80.0-98.0) fL MCH (27.0-33.0) pg MCHC (31.0-35.0) g/dl RDW (11.0-16.0) % Plt Count (160-400) X10*3/uL MPV (9.4-12.3) fL Immature Gran % (Auto) (0.0-0.4) % Neut % (Auto) (45-73) % Lymph % (Auto) (20-40) % [place] % (Auto) (2-11) % Eos % (Auto) (0-4) % Baso % (Auto) (0-2) % Lymph # (Auto) (1.2-4.9) X10*3/uL [place] # (Auto) (0.1-1.2) X10*3/uL Eos # (Auto) (0.0-0.4) X10*3/uL Baso # (Auto) (0.0-0.2) X10*3/uL Abs Immat Gran (auto) (0.00-0.03) X10*3/uL Absolute Neuts (auto) (2.0-8.3) x10*3/uL Absolute Nucleated RBC (0.0-0.012) X10*3/uL Nucleated RBC % (auto) (0.0-0.2) /100WBC O2 Saturation 88.0 67.0 % ABG pH at Pt Temp 7.31 L 7.25 L (7.35-7.45) ABG pCO2 at Pt Temp 77 H* 89 H* (32-45) mmHg ABG pO2 at Pt Temp 64 L 47 L* (83-108) mmHg ABG HCO3 39 H 39 H (22-26) mmol/L ABG Base Excess (Actual) 9.8 9.0 mmol/L VBG pH (7.32-7.43) VBG pCO2 mmHg VBG pO2 mmHg VBG HCO3 (22-26) mmol/L VBG O2 Saturation % VBG Base Excess mmol/L Sodium (135-145) mmol/L Potassium (3.3-5.1) mmol/L Chloride (96-108) mmol/L Carbon Dioxide (22-29) mmol/L Anion Gap (12-20) BUN (9-16) mg/dL Creatinine (0.5-1.4) mg/dL Estim Creat Clear Calc Estimated GFR Random Glucose (60-115) mg/dL Lactic Acid (0.5-2.0) mmol/L Calcium (8.4-10.2) mg/dL Magnesium (1.6-2.6) mg/dL Total Bilirubin (0.0-1.0) mg/dL Direct Bilirubin (0.0-0.5) mg/dL AST (5-31) U/L ALT (0-31) U/L Alkaline Phosphatase (39-117) U/L Troponin I High Sens 22.3 H (<3.5-17.0) ng/L B-Natriuretic Peptide (<100) pg/mL Total Protein (6.5-8.0) g/dL Albumin (3.5-5.0) g/dL Procalcitonin ng/mL ABG Data Attestation ABG: I personally reviewed and interpreted this ABG as follows: Interpretation: chronic findings mild retention but chronic worsening ABG Independent Interpretation I performed an independent interpretation of an: EKG and Plain X-Ray Interpretation: Rate: 112 Rhythm: sinus tachycardia [place]: normal Normal P waves. Normal SHAHNAZ. incomplete RBBB ST T wave : no MIO, nonspecific qTC: normal prior studies: no acute findings. The study has been interpreted contemporaneously by me. . Radiology Impression Discussion of test interpretation with radiology: I have reviewed the radiologist's reading. Independent Historian Clinical information obtained from an independent historian. History obtained from or confirmed by: EMS External Record Review External record reviewed: Inpatient record, Outpatient record and Prior outpatient labs Chronic Conditions Patient?s care impacted by: Other (longstanding chronic respiratory failure) Procedures EJ/Peripheral Line Arm R: Time Out Performed: Yes Skin Cleansed in Sterile Fashion: Yes Size (gauge): 20 IV Secured and Dressing Applied: Yes Patient Tolerated Procedure: well and no complications Additional Comments: US guided Critical Care Time Critical Care Time Critical Care Time: Yes Total Critical Care Time: 60 Attestation: I attest to this time spent taking care of the patient Discharge Plan Discharge Clinical Impression: Hypercapnic respiratory failure Asthma with exacerbation Qualifiers: Asthma severity: moderate Asthma persistence: persistent Qualified Code(s): J45.41 - Moderate persistent asthma with (acute) exacerbation Patient Disposition: Admitted As Inpatient
[2022-10-19 17:55] LABS: MANUAL DIFF FLAG NO
[2022-10-19 18:15] LABS: Lactic Acid 1.3 mmol/L (0.5-2.0)
[2022-10-19 18:17] LABS: Basophils Absolute Auto 0.1 X10*3/uL (0.0-0.2); Basophils Percent Auto 0.4 % (0-2); Hemoglobin 12.2 g/dl (12.0-16.0); Imm Gran Abs Auto 0.22 X10*3/uL (0.00-0.03); Lymphocytes Absolute Auto 0.7 X10*3/uL (1.2-4.9); Lymphocytes Percent Auto 3.2 % (20-40); Mean Corpuscular HGB Conc 30.5 g/dl (31.0-35.0); Mean Corpuscular Volume 95.2 fL (80.0-98.0); Mean Platelet Volume 9.1 fL (9.4-12.3); Monocytes Absolute Auto 1.2 X10*3/uL (0.1-1.2); Monocytes Percent Auto 5.4 % (2-11); Neutrophils Absolute Auto 19.8 x10*3/uL (2.0-8.3); Platelet Count 311 X10*3/uL (160-400); Red Cell Distribution Width 14.3 % (11.0-16.0)
[2022-10-19] MEDS: methylPREDNISolone Sod Succ 125 MG/2 ML VIAL 60 MG IVPUSH (18:17)
[2022-10-19] MEDS: Magnesium Sulfate/H2O 2 GM/50 ML PIGGYBACK IV (18:18)
--- NOTE | 2022-10-19 18:18 | PC.NURSE ---
multiple attempts at iv access, provider at bedside to obtain ultrasound guided iv.
[2022-10-19 18:27] LABS: Troponin-I High Sensitivity 22.4 ng/L (<3.5-17.0)
[2022-10-19 18:29] LABS: Alanine Aminotransferase 20 U/L (0-31); Albumin Level 3.9 g/dL (3.5-5.0); Alkaline Phosphatase 68 U/L (39-117); Anion Gap 17 (12-20); Aspartate Amino Transferase 13 U/L (5-31); Bilirubin Direct < 0.2 mg/dL (0.0-0.5); Bilirubin Total 0.2 mg/dL (0.0-1.0); Blood Urea Nitrogen 26 mg/dL (9-16); Calcium 9.8 mg/dL (8.4-10.2); Carbon Dioxide 31 mmol/L (22-29); Chloride 97 mmol/L (96-108); Creatinine Clr Calc Pharmacy 90.7; Estimated Glomerular Filt Rate > 60; Glucose Random 101 mg/dL (60-115); Magnesium 1.9 mg/dL (1.6-2.6); Sodium 141 mmol/L (135-145); Total Protein 6.9 g/dL (6.5-8.0)
[2022-10-19 18:34] LABS: VBG Base Excess 11.1 mmol/L; VBG HCO3 30 mmol/L (22-26); VBG pCO2 26 mmHg; VBG pO2 122 mmHg
[2022-10-19 18:48] LABS: B Type Natriuretic Peptide 12 pg/mL (<100)
[2022-10-19 18:52] LABS: VBG pH 7.67 (7.32-7.43)
[2022-10-19 18:53] LABS: Venous Blood Gas Refer to POC result
--- NOTE | 2022-10-19 18:58 | PC.NURSE ---
patient continued to desat, pt placed on bipap. patient received solumedral and mag via IV. patient IV was placed via ultrasound in the right forearm.
[2022-10-19 19:13] LABS: ABG Base Excess 9.8 mmol/L; ABG HCO3 39 mmol/L (22-26); ABG pCO2 77 mmHg (32-45); ABG pH 7.31 (7.35-7.45); ABG pO2 64 mmHg (83-108)
[2022-10-19 19:14] LABS: ABG Refer to POC result
[2022-10-19 19:18] LABS: Procalcitonin 0.05 ng/mL
[2022-10-19] MEDS: cefTRIAXone sodium 1 GM in 0.9 % Sodium Chloride 50 ML IV (20:03)
[2022-10-19] MEDS: Albuterol Sulfate 2.5 MG, Albuterol Sulfate (0.083%) 2.5 MG 5 MG INHALE (20:07)
[2022-10-19 20:13] LABS: Troponin-I High Sensitivity 22.3 ng/L (<3.5-17.0)
[2022-10-19] MEDS: Doxycycline Hyclate 100 MG in 0.9 % Sodium Chloride 250 ML 166.67 MG IV (20:49)
--- NOTE | 2022-10-19 21:51 | P.HPHOSP_ITS ---
History of Present Illness Date of Service: 10/19/22 Chief Complaint: Dyspnea This is 52-year-old female with pertinent history of chronic hypoxemic respiratory failure due to asthma-COPD overlap syndrome, insulin-dependent type 2 diabetes mellitus, essential hypertension, mood disorder, morbid obesity who presents to the emergency department for evaluation of dyspnea. [facility] Medical History Abdominal pain Abnormal chest x-ray Acute and chronic respiratory failure with hypercapnia Acute respiratory failure Aspiration into airway Asthma-COPD overlap syndrome Bacteremia Cellulitis Chronic constipation Chronic respiratory failure Chronic respiratory failure Congestive heart failure COPD (chronic obstructive pulmonary disease) COPD exacerbation COPD mixed type Cor pulmonale Diabetes mellitus Essential hypertension Hyperlipidemia, unspecified Hypertensive cardiovascular disease Hypogammaglobulinemia Leukocytosis Limb swelling Morbid obesity Morbid obesity Opioid dependence CHITO (obstructive sleep apnea) Poor dentition Pulmonary congestion Pulmonary nodule Rib fractures Status asthmaticus with COPD (chronic obstructive pulmonary disease) Tobacco abuse Type 2 diabetes mellitus Type 2 diabetes mellitus with unspecified complications Vomiting Family History Father Diabetes Other Asthma Surgical History H/O tubal ligation Social History Household Members: Children Household Members Other:: daughter Housing: Apartment Do you presently have visiting nurse or other home services: Yes Unable to assess alcohol history related to: Unknown Alcohol intake: never Patient Tobacco Use Status: Former Tobacco user Quit Date: February 2022 Tobacco use type: Cigarette Cigarettes Per Day: 1 Years Smoked: 35 e-Cigarette/Vaping Use: Currently Using Second Hand Smoke Exposure: No Substance Use Type: Opiates Advance Directives: Yes Advance Directives on File: Yes Advance Directives Date on File: 06/12/21 service: No Current occupational status: unemployed and disabled Meds Allergies Allergy/AdvReac Type Severity Reaction Status Date / Time No Known Allergies Allergy Verified 10/19/22 17:06 [No Known Allergies*] Active Medications: Current Medications Albuterol/Ipratropium (Albuterol/Iprat 2.5/0.5mg 3 Ml Ampul.Neb) 3 ml INHALE RQ4H WHILE AWAKE ANA Albuterol/Ipratropium (Albuterol/Iprat 2.5/0.5mg 3 Ml Ampul.Neb) 3 ml INHALE Q4H PRN PRN Reason: Wheezing Methylprednisolone Sodium Succinate (Methylprednisolone Sod Succ 40 Mg/Ml Vial) 40 mg IVPUSH Q12H [facility] Consult (Consult Rx Perform Med Rec) 1 each MISCELLANE ONCE PRN PRN Reason: Consult order Home Medications Medication Instructions Recorded Confirmed Last Taken Type albuterol sulfate 90 mcg/actuation 2 puff inhalation Q4H PRN 12/30/19 09/30/22 07/28/22 23:10 History aerosol inhaler (ProAir HFA) Shortness Of Breath Or Wheezing loratadine 10 mg tablet (Claritin) 10 mg PO DAILY 12/30/19 09/30/22 04/07/22 History montelukast 10 mg tablet 10 mg PO BEDTIME 12/30/19 09/30/22 07/28/22 23:14 History diltiazem HCl 360 mg capsule,24 360 mg PO DAILY 11/16/20 09/30/22 04/07/22 History hr,extended release (Tiadylt ER) roflumilast 500 mcg tablet 500 mcg PO DAILY 11/16/20 09/30/22 07/28/22 23:15 History (Daliresp) rosuvastatin 5 mg tablet 5 mg PO BEDTIME 11/16/20 09/30/22 07/28/22 23:15 History insulin lispro 100 unit/mL See Protocol subcut TIDAC 12/14/20 09/30/22 07/28/22 23:16 History subcutaneous solution (Humalog U-100 Insulin) metformin 500 mg tablet,extended 1,000 mg PO BID 05/18/21 09/30/22 04/07/22 History release 24 hr methadone 10 mg/mL oral concentrate 50 mg PO DAILY 06/06/21 09/30/22 09/29/22 History lisinopril 40 mg tablet 40 mg PO DAILY 07/30/21 09/30/22 04/07/22 History hydralazine 25 mg tablet 25 mg PO DAILY 11/02/21 09/30/22 07/28/22 23:12 History insulin lispro 100 unit/mL 4 unit subcut TIDAC 11/02/21 09/30/22 04/07/22 History subcutaneous solution clonazepam 1 mg tablet 1 mg PO BID PRN Anxiety 04/14/23 07/17/23 Unknown History ibuprofen 600 mg tablet 600 mg PO Q8H PRN Pain 06/28/22 09/30/22 Unknown History alendronate 70 mg tablet 70 mg PO QWEEK 07/29/22 09/30/22 09/28/22 History lamotrigine 150 mg tablet 150 mg PO BID 07/29/22 09/30/22 Unknown History lidocaine 5 % topical patch 1 patch topical DAILY 07/29/22 09/30/22 Unknown History bupropion HCl 75 mg tablet 75 mg PO DAILY 09/30/22 09/30/22 Unknown History calcitonin (salmon) 200 1 spray intranasal DAILY 09/30/22 09/30/22 Unknown History unit/actuation nasal spray cholecalciferol (vitamin D3) 1,250 1,250 mcg PO 2XW 09/30/22 09/30/22 Unknown History mcg (50,000 unit) capsule gabapentin 300 mg capsule 300 mg PO DAILY 09/30/22 09/30/22 Unknown History insulin glargine 100 unit/mL 45 unit subcut BEDTIME 09/30/22 09/30/22 Unknown History subcutaneous solution (Lantus U-100 Insulin) Physical Exam Vital Signs and Narrative: Vital Signs: Last Vital Signs Temp 98.6 F 10/19/22 16:58 Pulse 109 H 10/19/22 20:54 Resp 24 H 10/19/22 20:54 BP 160/83 H 10/19/22 20:54 Pulse Ox 91 L 10/19/22 20:54 O2 Del Method BiPAP 10/19/22 20:54 Oxygen Flow Rate 3 10/19/22 16:58 BMI result Body Mass Index 24.7 Middle-aged female lying in bed in mild distress on supplemental oxygen Neck supple, no JVD Regular rate and rhythm, S1-S2 heard Bilateral wheezing without crackles Abdomen soft nontender, no guarding, no rigidity Patient is awake, alert and oriented to self, place, time and person ; no focal motor deficit Psych: Normal mood No pedal edema Results Labs 10/19/22 17:45 10/19/22 17:46 Labs: Laboratory Results - last 24 hr 10/19/22 10/19/22 10/19/22 17:45 17:45 17:45 MCV 95.2 MCH 29.0 MCHC 30.5 L RDW 14.3 Plt Count 311 MPV 9.1 L Immature Gran % (Auto) 1.0 H Neut % (Auto) 90.0 H Lymph % (Auto) 3.2 L [place] % (Auto) 5.4 Eos % (Auto) 0.0 Baso % (Auto) 0.4 Lymph # (Auto) 0.7 L [place] # (Auto) 1.2 Eos # (Auto) 0.0 Baso # (Auto) 0.1 Abs Immat Gran (auto) 0.22 H Absolute Neuts (auto) 19.8 H Absolute Nucleated RBC 0.000 Nucleated RBC % (auto) 0.0 O2 Saturation ABG pH at Pt Temp ABG pCO2 at Pt Temp ABG pO2 at Pt Temp ABG HCO3 ABG Base Excess (Actual) VBG pH VBG pCO2 VBG pO2 VBG HCO3 VBG O2 Saturation VBG Base Excess Anion Gap Estim Creat Clear Calc Estimated GFR Random Glucose Lactic Acid 1.3 Calcium Magnesium Total Bilirubin Direct Bilirubin AST ALT Alkaline Phosphatase B-Natriuretic Peptide 12 Total Protein Albumin Procalcitonin 10/19/22 10/19/22 10/19/22 17:46 17:55 18:56 MCV MCH MCHC RDW Plt Count MPV Immature Gran % (Auto) Neut % (Auto) Lymph % (Auto) [place] % (Auto) Eos % (Auto) Baso % (Auto) Lymph # (Auto) [place] # (Auto) Eos # (Auto) Baso # (Auto) Abs Immat Gran (auto) Absolute Neuts (auto) Absolute Nucleated RBC Nucleated RBC % (auto) O2 Saturation 88.0 ABG pH at Pt Temp 7.31 L ABG pCO2 at Pt Temp 77 H* ABG pO2 at Pt Temp 64 L ABG HCO3 39 H ABG Base Excess (Actual) 9.8 VBG pH 7.67 H* VBG pCO2 26 VBG pO2 122 VBG HCO3 30 H VBG O2 Saturation 100.0 VBG Base Excess 11.1 Anion Gap 17 Estim Creat Clear Calc 90.7 Estimated GFR > 60 Random Glucose 101 Lactic Acid Calcium 9.8 Magnesium 1.9 Total Bilirubin 0.2 Direct Bilirubin < 0.2 AST 13 ALT 20 Alkaline Phosphatase 68 B-Natriuretic Peptide Total Protein 6.9 Albumin 3.9 Procalcitonin 0.05 Imaging Radiologist's Impressions: Impressions Chest X-Ray 10/19/22 18:36 IMPRESSION: Unremarkable chest radiograph. Moderate stool retention.. KUB X-Ray 10/19/22 18:36 IMPRESSION: Unremarkable chest radiograph. Moderate stool retention.. Assessment and Plan Plan This is 52-year-old female with pertinent history of chronic hypoxemic respiratory failure due to asthma-COPD overlap syndrome, insulin-dependent type 2 diabetes mellitus, essential hypertension, mood disorder, morbid obesity who presents to the emergency department for evaluation of dyspnea. #.? Acute on chronic hypoxemic respiratory failure secondary to asthma/COPD exacerbation:? Will admit patient with supplemental oxygen.? Monitor and wean as tolerated, maintain oxygen saturation greater than 88%.? Initiating systemic IV steroids.? Scheduled and p.r.n. DuoNebs.? Continue home inhaler.? Initiating azithromycin #.? Insulin-dependent diabetes mellitus with neuropathy: Initiating Accu-Cheks with sliding scale insulin.? Continue gabapentin #.? Reactive leukocytosis: Chronically elevated WBC likely secondary to steroid use #.? Essential hypertension:? Continue home antihypertensives #.? Mood disorder: Continue home mood stabilizers #.? History of substance use disorder: On methadone #. Elevated troponin, likely type 2 in the setting of increased demand Med rec pending DVT prophylaxis: Lovenox 40 mg daily Full code Admit as inpatient and will require two night minimum hospital stay for acute on chronic respiratory failure requiring close monitoring and titration of supplemental oxygen. Time Spent With Patient Time: Total time managing care of this patient today ____ minutes. Quality Stroke Does the patient have a stroke diagnosis?: No VTE Prior VTE?: No VTE Risk Level:: Medical - moderate - high VTE Device Contraindication: Treatment Not Indicated VTE Drug Contraindication: N/A - Med Ordered
[2022-10-19 22:03] LABS: ABG HCO3 39 mmol/L (22-26); ABG pCO2 89 mmHg (32-45); ABG pH 7.25 (7.35-7.45); ABG pO2 47 mmHg (83-108)
[2022-10-19 22:18] LABS: ABG Refer to POC result
--- NOTE | 2022-10-19 22:52 | P.HPCC_ITS ---
History of Present Illness Date of Service: 10/19/22 Attending physician on admission: Jens Pendleton Chief Complaint: Dyspnea The patient is a 52-year-old woman with a past medical history of asthma COPD overlap syndrome, chronic? hypercarbic and hypoxic respiratory failure currently on 3l via [place] home oxygen, on chronic steroids,? diabetes mellitus, hypertension, hyperlipidemia, tobacco use, and Hypogammaglobulinemia on IVIG,? opioid dependence on methadone who presented to emergency department with dyspnea.? Patient reports wheezing x4 days, constipation x3 days and noncompliance with CPAP for the last 3 days ?Laboratory data significant for the WBC 22, Serum bicarb 31. ABGs initially? 7.31/77/64/39? but after 2 hours of BiPAP? worsened to 7.25 / 89/47/39. Patient continued mentating well. Vitals stable IMAGING: : Chest Xray: no acute infection, but some evidence of congestion? KUB- Moderate stool retention ?ED course:? patient received? albuterol? 7.5,? methylprednisolone 60 mg, ceftriaxone 1 g, doxy 100,? and azithromycin.? ? Patient will be admitted to ICU for acute? hypercapnic and hypoxic respiratory failure requiring BiPAP Review of Systems Review of Systems: Constitutional: No weight loss, fever, chills, weakness or fatigue. Eyes: No visual loss, blurred vision, double vision or yellow sclera ENT: No hearing loss, sneezing, congestion, runny nose or sore throat. (+)Dry nose with use of O2 via [place] Respiratory: (+)Dyspnea, No cough, No hemoptysis. Cardiovascular: No Chest pain.. No palpitations. No edema. Gastrointestinal: No anorexia, nausea, vomiting or diarrhea. No abdominal pain or blood in stool. Genitourinary: No burning micturition. No urinary frequency or incontinence. Neurologic: No headache, dizziness, syncope, unilateral weakness, ataxia, numbness or tingling in the extremities. No change in bowel or bladder control. Musculoskeletal: No muscle pain, back pain, joint pain or stiffness. Hematologic/Lymphatics: No bleeding or bruising. No painful lymph nodes. Skin: No rash or itching. Endocrine: No reports of sweating. No cold or heat intolerance. No polyuria or polydipsia . ?? PMFSH Past Medical History Medical History Abdominal pain Abnormal chest x-ray Acute and chronic respiratory failure with hypercapnia Acute respiratory failure Aspiration into airway Asthma-COPD overlap syndrome Bacteremia Cellulitis Chronic constipation Chronic respiratory failure Chronic respiratory failure Congestive heart failure COPD (chronic obstructive pulmonary disease) COPD exacerbation COPD mixed type Cor pulmonale Diabetes mellitus Essential hypertension Hyperlipidemia, unspecified Hypertensive cardiovascular disease Hypogammaglobulinemia Leukocytosis Limb swelling Morbid obesity Morbid obesity Opioid dependence CHITO (obstructive sleep apnea) Poor dentition Pulmonary congestion Pulmonary nodule Rib fractures Status asthmaticus with COPD (chronic obstructive pulmonary disease) Tobacco abuse Type 2 diabetes mellitus Type 2 diabetes mellitus with unspecified complications Vomiting Family History Family History Father Diabetes Other Asthma Surgical History Surgical History H/O tubal ligation Social History Social History Household Members: Children Household Members Other:: daughter Housing: Apartment Do you presently have visiting nurse or other home services: Yes Unable to assess alcohol history related to: Unknown Alcohol intake: never Patient Tobacco Use Status: Former Tobacco user Quit Date: February 2022 Tobacco use type: Cigarette Cigarettes Per Day: 1 Years Smoked: 35 e-Cigarette/Vaping Use: Currently Using Second Hand Smoke Exposure: No Use of substances other than those prescribed or required for medical reasons: No Substance Use Type: Opiates Currently Displaying Signs/Symptoms of Drug Intoxication Withdrawal: No Advance Directives: Yes Advance Directives on File: Yes Advance Directives Date on File: 06/12/21 Do you have thoughts of harming others: None Do you have a plan to hurt others: No Plan Recently lost weight without trying: No Patient : No service: No Current occupational status: unemployed and disabled Meds Allergies Allergy/AdvReac Type Severity Reaction Status Date / Time No Known Allergies Allergy Verified 10/19/22 17:06 [No Known Allergies*] Active Medications: Current Medications Albuterol/Ipratropium (Albuterol/Iprat 2.5/0.5mg 3 Ml Ampul.Neb) 3 ml INHALE RQ4H WHILE AWAKE ANA Albuterol/Ipratropium (Albuterol/Iprat 2.5/0.5mg 3 Ml Ampul.Neb) 3 ml INHALE Q4H PRN PRN Reason: Wheezing Dextrose (Dextrose 50 % 25 Gm/50 Ml Syringe) 25 gm IVPUSH Q15M PRN; Protocol PRN Reason: per Hypoglycemia Standing Ord. Enoxaparin Sodium (Enoxaparin Sodium 40 Mg/0.4 Ml Syringe) 40 mg SUBCUT Q24H ANA Glucose (Glucose Gel 15 Gm Gel..Gram.) 15 gm PO Q15M PRN; Protocol PRN Reason: per Hypoglycemia Standing Ord. Azithromycin 500 mg/ Sodium (Chloride) 250 mls @ 125 mls/hr IV Q24H ANA Insulin Human Lispro (Insulin Lispro 100 Unit/Ml 3 Ml Vial) 0 unit SUBCUT QIDACHS [facility]; Protocol Methylprednisolone Sodium Succinate (Methylprednisolone Sod Succ 40 Mg/Ml Vial) 40 mg IVPUSH Q12H [facility] Pharmacy Consult (Consult Rx Perform Med Rec) 1 each MISCELLANE ONCE PRN PRN Reason: Consult order Home Medications Medication Instructions Recorded Confirmed Last Taken Type albuterol sulfate 90 mcg/actuation 2 puff inhalation Q4H PRN 12/30/19 10/20/22 07/28/22 23:10 History aerosol inhaler (ProAir HFA) Shortness Of Breath Or Wheezing loratadine 10 mg tablet (Claritin) 10 mg PO DAILY 12/30/19 10/20/22 04/07/22 History montelukast 10 mg tablet 10 mg PO BEDTIME 12/30/19 10/20/22 07/28/22 23:14 History diltiazem HCl 360 mg capsule,24 360 mg PO DAILY 11/16/20 10/20/22 04/07/22 History hr,extended release (Tiadylt ER) roflumilast 500 mcg tablet 500 mcg PO DAILY 11/16/20 10/20/22 07/28/22 23:15 H istory (Daliresp) rosuvastatin 5 mg tablet 5 mg PO BEDTIME 11/16/20 10/20/22 07/28/22 23:15 History insulin lispro 100 unit/mL See Protocol subcut TIDAC 12/14/20 10/20/22 07/28/22 23:16 History subcutaneous solution (Humalog U-100 Insulin) metformin 500 mg tablet,extended 1,000 mg PO BID 05/18/21 10/20/22 04/07/22 History release 24 hr methadone 10 mg/mL oral concentrate 50 mg PO DAILY 06/06/21 10/20/22 10/19/22 History lisinopril 40 mg tablet 40 mg PO DAILY 07/30/21 10/20/22 04/07/22 History hydralazine 25 mg tablet 25 mg PO DAILY 11/02/21 10/20/22 07/28/22 23:12 History insulin lispro 100 unit/mL 4 unit subcut TIDAC 11/02/21 10/20/22 04/07/22 History subcutaneous solution clonazepam 1 mg tablet 1 mg PO BID PRN Anxiety 06/28/22 10/20/22 Unknown History ibuprofen 600 mg tablet 600 mg PO Q8H PRN Pain 06/28/22 10/20/22 Unknown History alendronate 70 mg tablet 70 mg PO QWEEK 07/29/22 10/20/22 09/28/22 History lamotrigine 150 mg tablet 150 mg PO BID 07/29/22 10/20/22 Unknown History lidocaine 5 % topical patch 1 patch topical DAILY 07/29/22 10/20/22 Unknown History bupropion HCl 75 mg tablet 75 mg PO DAILY 09/30/22 10/20/22 Unknown History calcitonin (salmon) 200 1 spray intranasal DAILY 09/30/22 10/20/22 Unknown History unit/actuation nasal spray cholecalciferol (vitamin D3) 1,250 1,250 mcg PO 2XW 09/30/22 10/20/22 Unknown History mcg (50,000 unit) capsule gabapentin 300 mg capsule 300 mg PO DAILY 09/30/22 10/20/22 Unknown History insulin glargine 100 unit/mL 45 unit subcut BEDTIME 09/30/22 10/20/22 Unknown History subcutaneous solution (Lantus U-100 Insulin) docusate sodium 100 mg capsule 100 mg PO BID PRN constipation 10/20/22 10/20/22 Unknown History zolpidem 5 mg tablet 5 mg PO BEDTIME PRN Sleep 10/20/22 10/20/22 Unknown History Physical Exam Vital Signs: Vital Signs: Last Vital Signs Temp 98.6 F 10/19/22 16:58 Pulse 109 H 10/19/22 20:54 Resp 24 H 10/19/22 20:54 BP 160/83 H 10/19/22 20:54 Pulse Ox 91 L 10/19/22 20:54 O2 Del Method BiPAP 10/19/22 20:54 Oxygen Flow Rate 3 10/19/22 16:58 BMI result Body Mass Index 24.7 ?Constitutional: Patient alert, on BIPAP Head: Normocephalic. Eyes: Pupils are equal, round and reactive to light. Extraocular muscles intact. Ear, Nose and Throat: Oropharynx clear, mucous membranes moist. trachea midlight Neck: Supple, Full range of motion. Respiratory:? lungs diminished throughout. ? on BIPAP Carrdiovascular: Sinus tach low 100s. S1 S2 regular. No murmurs, rubs or gallops. Gastrointestinal: Abdomen soft, non-tender,?slightly distended. Normal bowel sounds. Genitourinary: No costovertebral angle tenderness. Neurologic:? No focal neurological deficits. Moves all extremities spontaneously. Skin:? scattered ecchymosis on extremities? Results Labs 10/19/22 17:45 10/19/22 17:46 Labs: Laboratory Results - last 24 hr 10/19/22 10/19/22 10/19/22 17:45 17:45 17:45 MCV 95.2 MCH 29.0 MCHC 30.5 L RDW 14.3 Plt Count 311 MPV 9.1 L Immature Gran % (Auto) 1.0 H Neut % (Auto) 90.0 H Lymph % (Auto) 3.2 L [place] % (Auto) 5.4 Eos % (Auto) 0.0 Baso % (Auto) 0.4 Lymph # (Auto) 0.7 L [place] # (Auto) 1.2 Eos # (Auto) 0.0 Baso # (Auto) 0.1 Abs Immat Gran (auto) 0.22 H Absolute Neuts (auto) 19.8 H Absolute Nucleated RBC 0.000 Nucleated RBC % (auto) 0.0 O2 Saturation ABG pH at Pt Temp ABG pCO2 at Pt Temp ABG pO2 at Pt Temp ABG HCO3 ABG Base Excess (Actual) VBG pH VBG pCO2 VBG pO2 VBG HCO3 VBG O2 Saturation VBG Base Excess Anion Gap Estim Creat Clear Calc Estimated GFR Random Glucose Lactic Acid 1.3 Calcium Magnesium Total Bilirubin Direct Bilirubin AST ALT Alkaline Phosphatase B-Natriuretic Peptide 12 Total Protein Albumin Procalcitonin 10/19/22 10/19/2223 17:46 17:55 18:56 MCV MCH MCHC RDW Plt Count MPV Immature Gran % (Auto) Neut % (Auto) Lymph % (Auto) [place] % (Auto) Eos % (Auto) Baso % (Auto) Lymph # (Auto) [place] # (Auto) Eos # (Auto) Baso # (Auto) Abs Immat Gran (auto) Absolute Neuts (auto) Absolute Nucleated RBC Nucleated RBC % (auto) O2 Saturation 88.0 ABG pH at Pt Temp 7.31 L ABG pCO2 at Pt Temp 77 H* ABG pO2 at Pt Temp 64 L ABG HCO3 39 H ABG Base Excess (Actual) 9.8 VBG pH 7.67 H* VBG pCO2 26 VBG pO2 122 VBG HCO3 30 H VBG O2 Saturation 100.0 VBG Base Excess 11.1 Anion Gap 17 Estim Creat Clear Calc 90.7 Estimated GFR > 60 Random Glucose 101 Lactic Acid Calcium 9.8 Magnesium 1.9 Total Bilirubin 0.2 Direct Bilirubin < 0.2 AST 13 ALT 20 Alkaline Phosphatase 68 B-Natriuretic Peptide Total Protein 6.9 Albumin 3.9 Procalcitonin 0.05 10/19/22 21:49 MCV MCH MCHC RDW Plt Count MPV Immature Gran % (Auto) Neut % (Auto) Lymph % (Auto) [place] % (Auto) Eos % (Auto) Baso % (Auto) Lymph # (Auto) [place] # (Auto) Eos # (Auto) Baso # (Auto) Abs Immat Gran (auto) Absolute Neuts (auto) Absolute Nucleated RBC Nucleated RBC % (auto) O2 Saturation 67.0 ABG pH at Pt Temp 7.25 L ABG pCO2 at Pt Temp 89 H* ABG pO2 at Pt Temp 47 L* ABG HCO3 39 H ABG Base Excess (Actual) 9.0 VBG pH VBG pCO2 VBG pO2 VBG HCO3 VBG O2 Saturation VBG Base Excess Anion Gap Estim Creat Clear Calc Estimated GFR Random Glucose Lactic Acid Calcium Magnesium Total Bilirubin Direct Bilirubin AST ALT Alkaline Phosphatase B-Natriuretic Peptide Total Protein Albumin Procalcitonin Imaging Radiologist's Impressions: Impressions Chest X-Ray 10/19/22 18:36 IMPRESSION: Unremarkable chest radiograph. Moderate stool retention.. KUB X-Ray 10/19/22 18:36 IMPRESSION: Unremarkable chest radiograph. Moderate stool retention.. Assessment and Plan (1) Acute on chronic respiratory failure with hypoxia and hypercapnia: Status: Resolved (2) Asthma-COPD overlap syndrome: Status: Acute (3) Asthma with exacerbation: Qualifiers: Asthma persistence: persistent Asthma severity: moderate Qualified Code(s): J45.41 - Moderate persistent asthma with (acute) exacerbation Status: Acute (4) Pulmonary congestion: Status: Inactive (5) Constipation: Status: Acute Plan 52-year-old female? with asthma COPD overlap syndrome, chronic hypoxic and hypercapnic respiratory failure on home O2,? who presented to the emergency room? admitted for? acute hypercapnic and hypoxic respiratory failure requiring BiPAP support Plan: Neuro:? No acute issues. Cardiac:?? Pulmonary congestion:? and chest x-ray with evidence of some congestion.? She has chronic? elevated bicarb, Will give diamox.? Monitor for diuresing Pulmonary:?? acute hypoxic and hypercapnic respiratory failure secondary to COPD exacerbation.? She is chronically on prednisone,? received systemic glucocorticoids in ED. Will cont? systemic? glucocorticoids, nebulized bronchodilators, and azithromycin.? Renal:? No acute issues.?? Endo:? No acute issues.?? GI:?? Consitpation :? patient complaining of constipation,? KUB? with evidence of stool retention.? Postop bowel prep ID:? Leukocytosis,? this is likely due to chronic steroid.? No signs of active infection. Received antibiotics in ED. Will cont azithromycin per copd exac.?? Heme/Onc:? No acute issues. Psych:? No acute issues. Miscellaneous:? No acute issues. Prophylaxis:? lovenox? Diet:? NPO while on BIPAP Critical care time spent:? 60 minutes Time Spent With Patient Time: Total time managing care of this patient today ____ minutes.
[2022-10-19] MEDS: Azithromycin 500 MG in 0.9 % Sodium Chloride 250 ML 125 MG IV (23:27)
[2022-10-19] MEDS: Enoxaparin Sodium 40 MG/0.4 ML SYRINGE SUBCUT (23:28)
[2022-10-19] MEDS: acetaZOLAMIDE sodium 500 MG VIAL 250 MG IVPUSH (23:30)
[2022-10-20] VITALS (28 sets, daily range): BP systolic 91–151; BP diastolic 63–94; PULSE 86–112; RESP 12–26; TEMP 35.9–36.6; O2SAT 90–97; BMI 36.9; BMI 37.3
--- NOTE | 2022-10-20 00:48 | PC.NURSE ---
Late Entry: This expert medical writer assumed care of this pt at 1900. Pt a&oX3, pt denies pain, Pt independently uses the commode at bedside, Lungs sounds clear, pt receiving respiratory treatments, RT at bedside. Pt on Bipap machine satting at 91%, HR 109, RR: 24. Medications given as documented. Pt changed over in to inderjit. RN to RN report give to ICU nurse. Transported with RT, to room 262. pt aware of plan
[2022-10-20] MEDS: clonazePAM 1 MG TABLET PO (01:09)
[2022-10-20] MEDS: polyethylene glycoL 3350 17 GM POWD.PACK PO (01:09)
[2022-10-20 01:22] LABS: Glucose, Whole Blood 338 mg/dL (60-115)
[2022-10-20 02:26] LABS: Amphetamine Screen Urine Not Detected (Not Detect); Barbiturates, Urine Not Detected (Not Detect); Benzodiazepines Screen Urine Not Detected (Not Detect); Cannabinoid Screen Urine Not Detected (Not Detect); Cocaine Screen Urine Not Detected (Not Detect); Fentanyl, urine Not Detected (Not Detect); Opiate Screen Urine Not Detected (Not Detect); Phencyclidine Screen Urine Not Detected (Not Detect)
[2022-10-20] MEDS: Albuterol/Iprat 2.5/0.5MG 3 ML AMPUL.NEB INHALE ×5 (05:14→19:25)
[2022-10-20] MEDS: methylPREDNISolone Sod Succ 40 MG/ML VIAL IVPUSH ×2 (05:20→17:23)
[2022-10-20 05:42] LABS: ABG Base Excess 9.9 mmol/L; ABG HCO3 40 mmol/L (22-26); ABG pCO2 85 mmHg (32-45); ABG pH 7.28 (7.35-7.45); ABG pO2 63 mmHg (83-108)
[2022-10-20 05:56] LABS: ABG Refer to POC result
[2022-10-20 06:19] LABS: VBG Base Excess 11.6 mmol/L; VBG HCO3 41 mmol/L (22-26); VBG pCO2 80 mmHg; VBG pH 7.31 (7.32-7.43); VBG pO2 45 mmHg
[2022-10-20 06:25] LABS: Basophils Percent Auto 0.3 % (0-2); Eosinophils Percent Auto 0.1 % (0-4); Hematocrit 38.8 % (37.0-47.0); Hemoglobin 11.7 g/dl (12.0-16.0); Imm Gran Abs Auto 0.09 X10*3/uL (0.00-0.03); Imm Gran Pct Auto 0.7 % (0.0-0.4); Lymphocytes Absolute Auto 0.2 X10*3/uL (1.2-4.9); Lymphocytes Percent Auto 1.4 % (20-40); Mean Corpuscular HGB Conc 30.2 g/dl (31.0-35.0); Mean Corpuscular Hemoglobin 29.3 pg (27.0-33.0); Mean Corpuscular Volume 97.2 fL (80.0-98.0); Mean Platelet Volume 9.6 fL (9.4-12.3); Monocytes Absolute Auto 0.3 X10*3/uL (0.1-1.2); Monocytes Percent Auto 2.2 % (2-11); Neutrophils Percent Auto 95.3 % (45-73); Platelet Count 206 X10*3/uL (160-400); Red Blood Count 3.99 X10*6/uL (4.20-5.50); Red Cell Distribution Width 14.2 % (11.0-16.0); SCAN SMEAR FLAG 1; White Blood Count 13.6 X10*3/uL (4.8-10.8)
[2022-10-20 06:43] LABS: Albumin Level 3.7 g/dL (3.5-5.0); Anion Gap 19 (12-20); Blood Urea Nitrogen 18 mg/dL (9-16); Calcium 9.4 mg/dL (8.4-10.2); Carbon Dioxide 27 mmol/L (22-29); Chloride 96 mmol/L (96-108); Creatinine Clr Calc Pharmacy 102.5; Estimated Glomerular Filt Rate > 60; Glucose Random 319 mg/dL (60-115); Magnesium 2.4 mg/dL (1.6-2.6); Phosphorus 3.3 mg/dL (2.7-4.5); Potassium 4.5 mmol/L (3.3-5.1); Sodium 137 mmol/L (135-145)
[2022-10-20 06:48] LABS: MANUAL DIFF FLAG SCAN; SLIDE REVIEW VERIFIED
[2022-10-20 07:11] LABS: Glucose, Whole Blood 259 mg/dL (60-115)
[2022-10-20] MEDS: Insulin Lispro 100 UNIT/ML 3 ML VIAL SUBCUT ×4 (09:10→21:32)
[2022-10-20] MEDS: Famotidine/PF 20 MG/2 ML VIAL IVPUSH ×2 (09:14→20:20)
--- NOTE | 2022-10-20 09:25 | PHA.MEDREC ---
Pharmacy Consult ? Medication Reconciliation Pharmacy has completed the medication reconciliation. patient discharged a couple days ago. Used discharge papers and called family members to see if any changes were made. They confirmed prednisone, lantus, humalog, gabapentin. New medications recently prescribed are colace BID prn and zolpidem 5mg prn. [facility] confirmed z[facility]em was picked up 10/09 since family was unsure. Methadone 50mg was verified by Nimo at [facility] ([phone]). Last dose was given 10/19/22 in the morning by visiting nurse Maggie ([phone]) from [facility].
[2022-10-20 10:05] LABS: VBG Base Excess 16.9 mmol/L; VBG HCO3 46 mmol/L (22-26); VBG pCO2 75 mmHg; VBG pH 7.39 (7.32-7.43); VBG pO2 106 mmHg
[2022-10-20 11:21] LABS: Venous Blood Gas Refer to POC result
[2022-10-20 11:49] LABS: Glucose, Whole Blood 155 mg/dL (60-115)
--- NOTE | 2022-10-20 12:20 | P.PNCC_ITS ---
Subjective Subjective Date of Service: 10/20/22 Interval History: 52-year-old morbidly obese type 2 diabetic and hypertensive female with longstanding COPD and bronchospasm as well as obesity /hypoventilation and obstructive sleep apnea presents with increasing dyspnea but did not use her home device came to the emergency room as usual instead where she was found to have acute on chronic hypercapnic/hypoxic respiratory failure without evidence of infiltrate without evidence of congestive heart failure but apparently a COPD exacerbation and here and received around of aggressive albuterol treatments and because of her chronic dependence on prednisone she was given a stat dose of S tray-Medrol and had no fever no sputum production no associated chest pain EKG showing normal sinus rhythm otherwise normal and unchanged and by exam clearly status asthmaticus and fatiguing she was not making any significant inspiratory or expiratory effort utilizing accessory muscles or diaphragm simply allowing the BiPAP device which we attached to do all the work and when the pCO2 is not coming down and again she was not altered in terms of mental status but without there being any improvement we went to the AVAPS mode seeking a tidal volume of 500-550 cc with an elevated EPAP to overcome bronchial obstruction she started to improve clinically pCO2 was finally diminishing from 85 down to 75 and 1 she is at least in the mid 60s she is back to her norm and she is chronically BiPAP dependent he was not acutely altered in any way this was not really quite a rescue issue with the BiPAP machine just simply using it whereby she did not Critical Care Time (minutes): 45 Physical Exam Vital Signs: Vital Signs: Last Vital Signs Temp 97.3 F 10/20/22 08:00 Pulse 94 10/20/22 12:00 Resp 19 10/20/22 12:00 BP 152/90 H 10/20/22 12:00 Pulse Ox 97 10/20/22 12:00 O2 Del Method BiPAP 10/20/22 12:00 O2 Flow Rate 3 10/20/22 01:00 FiO2 28 10/20/22 12:00 Oxygen Flow Rate 3 10/19/22 16:58 BMI result Body Mass Index 37.3 she is normotensive 144/82 oxygen saturations are 90 to 94% she is in sinus rhythm with rates in the 90s with an unchanged EKG good bilateral carotid upstrokes no bruits no neck vein distension echo with normal LV size and systolic function abdomen markedly obese but no tenderness no organomegaly chest with diminished bilateral breath sounds no adventitious sounds chest x-ray is without infiltrate without evidence of vascular congestion Objective Data Labs 10/20/22 06:17 10/20/22 06:17 Labs: Laboratory Results - last 24 hr 10/19/22 10/19/22 10/19/22 17:45 17:45 17:45 WBC 22.0 H RBC 4.20 Hgb 12.2 Hct 40.0 MCV 95.2 MCH 29.0 MCHC 30.5 L RDW 14.3 Plt Count 311 MPV 9.1 L Immature Gran % (Auto) 1.0 H Neut % (Auto) 90.0 H Lymph % (Auto) 3.2 L [place] % (Auto) 5.4 Eos % (Auto) 0.0 Baso % (Auto) 0.4 Lymph # (Auto) 0.7 L [place] # (Auto) 1.2 Eos # (Auto) 0.0 Baso # (Auto) 0.1 Abs Immat Gran (auto) 0.22 H Absolute Neuts (auto) 19.8 H Absolute Nucleated RBC 0.000 Nucleated RBC % (auto) 0.0 Smear Tech's Comments O2 Saturation ABG pH at Pt Temp ABG pCO2 at Pt Temp ABG pO2 at Pt Temp ABG HCO3 ABG Base Excess (Actual) VBG pH VBG pCO2 VBG pO2 VBG HCO3 VBG O2 Saturation VBG Base Excess Sodium Potassium Chloride Carbon Dioxide Anion Gap BUN Creatinine Estim Creat Clear Calc Estimated GFR POC Glucose Random Glucose Lactic Acid 1.3 Calcium Phosphorus Magnesium Total Bilirubin Direct Bilirubin AST ALT Alkaline Phosphatase Troponin I High Sens B-Natriuretic Peptide 12 Total Protein Albumin Procalcitonin Urine Opiates Screen Urine Fentanyl Screen Ur Barbiturates Screen Ur Phencyclidine Scrn Ur Amphetamines Screen U Benzodiazepines Scrn Urine Cocaine Screen U Marijuana (THC) Screen 10/19/22 10/19/22 10/19/22 17:45 17:46 17:55 WBC RBC Hgb Hct MCV MCH MCHC RDW Plt Count MPV Immature Gran % (Auto) Neut % (Auto) Lymph % (Auto) [place] % (Auto) Eos % (Auto) Baso % (Auto) Lymph # (Auto) [place] # (Auto) Eos # (Auto) Baso # (Auto) Abs Immat Gran (auto) Absolute Neuts (auto) Absolute Nucleated RBC Nucleated RBC % (auto) Smear Tech's Comments O2 Saturation ABG pH at Pt Temp ABG pCO2 at Pt Temp ABG pO2 at Pt Temp ABG HCO3 ABG Base Excess (Actual) VBG pH 7.67 H* VBG pCO2 26 VBG pO2 122 VBG HCO3 30 H VBG O2 Saturation 100.0 VBG Base Excess 11.1 Sodium 141 Potassium 4.0 Chloride 97 Carbon Dioxide 31 H Anion Gap 17 BUN 26 H Creatinine 0.60 Estim Creat Clear Calc 90.7 Estimated GFR > 60 POC Glucose Random Glucose 101 Lactic Acid Calcium 9.8 Phosphorus Magnesium 1.9 Total Bilirubin 0.2 Direct Bilirubin < 0.2 AST 13 ALT 20 Alkaline Phosphatase 68 Troponin I High Sens 22.4 H D B-Natriuretic Peptide Total Protein 6.9 Albumin 3.9 Procalcitonin 0.05 Urine Opiates Screen Urine Fentanyl Screen Ur Barbiturates Screen Ur Phencyclidine Scrn Ur Amphetamines Screen U Benzodiazepines Scrn Urine Cocaine Screen U Marijuana (THC) Screen 10/19/22 10/19/22 10/19/22 18:56 19:47 21:49 WBC RBC Hgb Hct MCV MCH MCHC RDW Plt Count MPV Immature Gran % (Auto) Neut % (Auto) Lymph % (Auto) [place] % (Auto) Eos % (Auto) Baso % (Auto) Lymph # (Auto) [place] # (Auto) Eos # (Auto) Baso # (Auto) Abs Immat Gran (auto) Absolute Neuts (auto) Absolute Nucleated RBC Nucleated RBC % (auto) Smear Tech's Comments O2 Saturation 88.0 67.0 ABG pH at Pt Temp 7.31 L 7.25 L ABG pCO2 at Pt Temp 77 H* 89 H* ABG pO2 at Pt Temp 64 L 47 L* ABG HCO3 39 H 39 H ABG Base Excess (Actual) 9.8 9.0 VBG pH VBG pCO2 VBG pO2 VBG HCO3 VBG O2 Saturation VBG Base Excess Sodium Potassium Chloride Carbon Dioxide Anion Gap BUN Creatinine Estim Creat Clear Calc Estimated GFR POC Glucose Random Glucose Lactic Acid Calcium Phosphorus Magnesium Total Bilirubin Direct Bilirubin AST ALT Alkaline Phosphatase Troponin I High Sens 22.3 H B-Natriuretic Peptide Total Protein Albumin Procalcitonin Urine Opiates Screen Urine Fentanyl Screen Ur Barbiturates Screen Ur Phencyclidine Scrn Ur Amphetamines Screen U Benzodiazepines Scrn Urine Cocaine Screen U Marijuana (THC) Screen 10/20/22 10/20/22 10/20/22 01:18 01:56 05:32 WBC RBC Hgb Hct MCV MCH MCHC RDW Plt Count MPV Immature Gran % (Auto) Neut % (Auto) Lymph % (Auto) [place] % (Auto) Eos % (Auto) Baso % (Auto) Lymph # (Auto) [place] # (Auto) Eos # (Auto) Baso # (Auto) Abs Immat Gran (auto) Absolute Neuts (auto) Absolute Nucleated RBC Nucleated RBC % (auto) Smear Tech's Comments O2 Saturation 87.0 ABG pH at Pt Temp 7.28 L ABG pCO2 at Pt Temp 85 H* ABG pO2 at Pt Temp 63 L ABG HCO3 40 H ABG Base Excess (Actual) 9.9 VBG pH VBG pCO2 VBG pO2 VBG HCO3 VBG O2 Saturation VBG Base Excess Sodium Potassium Chloride Carbon Dioxide Anion Gap BUN Creatinine Estim Creat Clear Calc Estimated GFR POC Glucose 338 H Random Glucose Lactic Acid Calcium Phosphorus Magnesium Total Bilirubin Direct Bilirubin AST ALT Alkaline Phosphatase Troponin I High Sens B-Natriuretic Peptide Total Protein Albumin Procalcitonin Urine Opiates Screen Not Detected Urine Fentanyl Screen Not Detected Ur Barbiturates Screen Not Detected Ur Phencyclidine Scrn Not Detected Ur Amphetamines Screen Not Detected U Benzodiazepines Scrn Not Detected Urine Cocaine Screen Not Detected U Marijuana (THC) Screen Not Detected 10/20/22 10/20/22 10/20/22 06:09 06:17 06:17 WBC 13.6 H RBC 3.99 L Hgb 11.7 L Hct 38.8 MCV 97.2 MCH 29.3 MCHC 30.2 L RDW 14.2 Plt Count 206 D MPV 9.6 Immature Gran % (Auto) 0.7 H Neut % (Auto) 95.3 H Lymph % (Auto) 1.4 L [place] % (Auto) 2.2 Eos % (Auto) 0.1 Baso % (Auto) 0.3 Lymph # (Auto) 0.2 L [place] # (Auto) 0.3 Eos # (Auto) 0.0 Baso # (Auto) 0.0 Abs Immat Gran (auto) 0.09 H Absolute Neuts (auto) 13.0 H Absolute Nucleated RBC 0.000 Nucleated RBC % (auto) 0.0 Smear Tech's Comments VERIFIED O2 Saturation ABG pH at Pt Temp ABG pCO2 at Pt Temp ABG pO2 at Pt Temp ABG HCO3 ABG Base Excess (Actual) VBG pH 7.31 L VBG pCO2 80 VBG pO2 45 VBG HCO3 41 H VBG O2 Saturation 71.0 VBG Base Excess 11.6 Sodium 137 Potassium 4.5 Chloride 96 Carbon Dioxide 27 Anion Gap 19 BUN 18 H Creatinine 0.65 Estim Creat Clear Calc 102.5 Estimated GFR > 60 POC Glucose Random Glucose 319 H Lactic Acid Calcium 9.4 Phosphorus 3.3 Magnesium 2.4 Total Bilirubin Direct Bilirubin AST ALT Alkaline Phosphatase Troponin I High Sens B-Natriuretic Peptide Total Protein Albumin 3.7 Procalcitonin Urine Opiates Screen Urine Fentanyl Screen Ur Barbiturates Screen Ur Phencyclidine Scrn Ur Amphetamines Screen U Benzodiazepines Scrn Urine Cocaine Screen U Marijuana (THC) Screen 10/20/22 10/20/22 10/20/22 07:07 09:54 11:45 WBC RBC Hgb Hct MCV MCH MCHC RDW Plt Count MPV Immature Gran % (Auto) Neut % (Auto) Lymph % (Auto) [place] % (Auto) Eos % (Auto) Baso % (Auto) Lymph # (Auto) [place] # (Auto) Eos # (Auto) Baso # (Auto) Abs Immat Gran (auto) Absolute Neuts (auto) Absolute Nucleated RBC Nucleated RBC % (auto) Smear Tech's Comments O2 Saturation ABG pH at Pt Temp ABG pCO2 at Pt Temp ABG pO2 at Pt Temp ABG HCO3 ABG Base Excess (Actual) VBG pH 7.39 VBG pCO2 75 VBG pO2 106 VBG HCO3 46 H VBG O2 Saturation 99.0 VBG Base Excess 16.9 Sodium Potassium Chloride Carbon Dioxide Anion Gap BUN Creatinine Estim Creat Clear Calc Estimated GFR POC Glucose 259 H 155 H Random Glucose Lactic Acid Calcium Phosphorus Magnesium Total Bilirubin Direct Bilirubin AST ALT Alkaline Phosphatase Troponin I High Sens B-Natriuretic Peptide Total Protein Albumin Procalcitonin Urine Opiates Screen Urine Fentanyl Screen Ur Barbiturates Screen Ur Phencyclidine Scrn Ur Amphetamines Screen U Benzodiazepines Scrn Urine Cocaine Screen U Marijuana (THC) Screen Progress Note: A&P Assessment and plan (1) Asthma with exacerbation: Status: Acute (2) Asthma-COPD overlap syndrome: Status: Acute (3) Acute on chronic respiratory failure with hypoxia and hypercapnia: Status: Resolved (4) Asthmatic bronchitis with acute exacerbation: Status: Resolved (5) Diabetes mellitus: Status: Inactive (6) Essential hypertension: Status: Inactive (7) Morbid obesity: Status: Inactive (8) Opioid dependence: Status: Inactive (9) CHITO (obstructive sleep apnea): Status: Inactive Plan plan is to continue on the AVAPS mode and recheck a gas and the afternoon and clearly if pCO2 is down into the 60s with a compensated pH we are back to our baseline and she would qualify for an 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 care unit to remain on the BiPAP and then possibly free her tomorrow meter to be able to eat potentially remain on empiric [place] through mycin Quality Stroke Does the patient have a stroke diagnosis?: No VTE Prior VTE?: No VTE Risk Level:: Medical - moderate - high VTE Device Contraindication: Treatment Not Indicated VTE Drug Contraindication: N/A - Med Ordered
--- NOTE | 2022-10-20 13:22 | MHC.CM.PN ---
Pt presently on BiPAP in ICU for respiratory distress, hypercarbia in the setting on CPAP non compliance. Pt resides w/dtr who is also a [employer]. She is active w/[facility] for Methadone dosing and has [facility] for O2 needs. HCP on file and verified: pt will need BLS transport to home: Referred to existing [facility] for continuation of services upon return to home. CM to follow for changes in plan.
[2022-10-20] MEDS: methADONE HCl 20 MG/2 ML ORAL.CONC 50 MG PO (13:42)
[2022-10-20] MEDS: lisinopriL 20 MG TABLET PO (13:43)
[2022-10-20 13:50] LABS: ABG Base Excess 15.7 mmol/L; ABG HCO3 44 mmol/L (22-26); ABG pCO2 74 mmHg (32-45); ABG pH 7.38 (7.35-7.45); ABG pO2 83 mmHg (83-108)
--- NOTE | 2022-10-20 14:17 | PM.EVENT ---
Event Note Date of Service: 10/20/22 Event Note: ICU transfer for resp failure, Bipap as needed Time Spent With Patient Time: Total time managing care of this patient today ____ minutes.
[2022-10-20] MEDS: Docusate Sodium 100 MG CAPSULE PO ×2 (15:33→20:20)
[2022-10-20 16:54] LABS: Glucose, Whole Blood 160 mg/dL (60-115)
[2022-10-20 18:03] LABS: COVID-19 Test Negative (Negative); IDNOW Serial# 08D9AD1C
[2022-10-20] MEDS: Gabapentin 300 MG CAPSULE PO (20:20)
[2022-10-20 20:52] LABS: Glucose, Whole Blood 172 mg/dL (60-115)
[2022-10-20] MEDS: Enoxaparin Sodium 40 MG/0.4 ML SYRINGE SUBCUT (21:32)
[2022-10-20] MEDS: Azithromycin 500 MG in 0.9 % Sodium Chloride 250 ML 125 MG IV (21:32)
[2022-10-21] VITALS (14 sets, daily range): BP systolic 144–186; BP diastolic 71–108; PULSE 91–123; RESP 18–26; TEMP 36.1–37; O2SAT 94–98; BMI 36.9
[2022-10-21] MEDS: Albuterol/Iprat 2.5/0.5MG 3 ML AMPUL.NEB INHALE ×4 (02:35→19:41)
[2022-10-21] MEDS: methylPREDNISolone Sod Succ 40 MG/ML VIAL IVPUSH ×2 (05:48→16:56)
[2022-10-21 07:44] LABS: Glucose, Whole Blood 187 mg/dL (60-115)
[2022-10-21] MEDS: methADONE HCl 20 MG/2 ML ORAL.CONC 50 MG PO (07:59)
[2022-10-21] MEDS: Docusate Sodium 100 MG CAPSULE PO (07:59)
[2022-10-21] MEDS: Insulin Lispro 100 UNIT/ML 3 ML VIAL SUBCUT ×4 (07:59→21:43)
[2022-10-21] MEDS: lisinopriL 20 MG TABLET PO (07:59)
[2022-10-21] MEDS: Famotidine/PF 20 MG/2 ML VIAL IVPUSH ×2 (08:03→20:29)
--- NOTE | 2022-10-21 09:00 | P.PNIM_ITS ---
Subjective Subjective Date of Service: 10/21/22 Interval History: seen and examined this morning follow up for for respiratory failure, copd exacerbation breathing a little better today Review of Systems Review of Systems: Yes all other systems are reviewed and are negative Constitutional Constitutional: Denies chills and Denies fever(s) ENT Ears, Nose, Mouth, and Throat: Denies dizziness Cardiovascular Cardiovascular: Denies chest pain, Denies palpitations and Reports dyspnea Respiratory Respiratory: Reports cough and Reports dyspnea Gastrointestinal Gastrointestinal: Denies abdominal pain, Denies nausea and Denies vomiting Neurologic Neurologic: Denies dizziness Endocrine Endocrine: Denies palpitations Physical Exam Vital Signs: Vital Signs: Last Vital Signs Temp 96.9 F 10/21/22 07:09 Pulse 107 H 10/21/22 07:30 Resp 18 10/21/22 07:30 BP 161/93 H 10/21/22 07:09 Pulse Ox 96 10/21/22 07:09 O2 Del Method BiPAP 10/21/22 07:09 O2 Flow Rate 28 10/21/22 07:09 FiO2 28 10/21/22 03:36 Oxygen Flow Rate 3 10/19/22 16:58 BMI result Body Mass Index 36.9 Appearing in no acute distress lung sounds dim heart regular rate rhythm, clear S1, S2 positive bowel sounds, abdomen is soft, nontender neuro patient is alert x3, no focal deficits Objective Data Active Medications Albuterol/Ipratropium (Albuterol/Iprat 2.5/0.5mg 3 Ml Ampul.Neb) 3 ml INHALE RQ4H WHILE AWAKE ANA Last Admin: 10/21/22 07:30 Dose: 3 ml Documented By: RAHEL Albuterol/Ipratropium (Albuterol/Iprat 2.5/0.5mg 3 Ml Ampul.Neb) 3 ml INHALE Q4H PRN PRN Reason: Wheezing Last Admin: 10/20/22 05:14 Dose: 3 ml Documented By: BETH Clonazepam (Clonazepam 1 Mg Tablet) 1 mg PO BID PRN PRN Reason: anxiety/restlessness Last Admin: 10/20/22 01:09 Dose: 1 mg Documented By: NEELAM Dextrose (Dextrose 50 % 25 Gm/50 Ml Syringe) 25 gm IVPUSH Q15M PRN; Protocol PRN Reason: per Hypoglycemia Standing Ord. Docusate Sodium (Docusate Sodium 100 Mg Capsule) 100 mg PO BID [facility] Last Admin: 10/21/22 07:59 Dose: 100 mg Documented By: TAMIE Enoxaparin Sodium (Enoxaparin Sodium 40 Mg/0.4 Ml Syringe) 40 mg SUBCUT Q24H [facility] Last Admin: 10/20/22 21:32 Dose: 40 mg Documented By: GUANAKITO Famotidine (Famotidine/Pf 20 Mg/2 Ml Vial) 20 mg IVPUSH BID [facility] Last Admin: 10/21/22 08:03 Dose: 20 mg Documented By: TAMIE Gabapentin (Gabapentin 300 Mg Capsule) 300 mg PO BEDTIME [facility] Last Admin: 10/20/22 20:20 Dose: 300 mg Documented By: GUANAKITO Glucose (Glucose Gel 15 Gm Gel..Gram.) 15 gm PO Q15M PRN; Protocol PRN Reason: per Hypoglycemia Standing Ord. Azithromycin 500 mg/ Sodium (Chloride) 250 mls @ 125 mls/hr IV Q24H [facility] Last Infusion: 10/21/22 08:08 Dose: 0 mls/hr Documented By: TAMIE Insulin Human Lispro (Insulin Lispro 100 Unit/Ml 3 Ml Vial) 0 unit SUBCUT QIDACHS [facility]; Protocol Last Admin: 10/21/22 07:59 Dose: 2 unit Documented By: TAMIE Lisinopril (Lisinopril 20 Mg Tablet) 20 mg PO DAILY [facility]; Protocol Last Admin: 10/21/22 07:59 Dose: 20 mg Documented By: TAMIE Methadone HCl (Methadone Hcl 20 Mg/2 Ml Oral.Conc) 50 mg PO DAILY [facility] Last Admin: 10/21/22 07:59 Dose: 50 mg Documented By: TAMIE Methylprednisolone Sodium Succinate (Methylprednisolone Sod Succ 40 Mg/Ml Vial) 40 mg IVPUSH Q12H [facility] Last Admin: 10/21/22 05:48 Dose: 40 mg Documented By: GUANAKITO Pharmacy Consult (Consult Rx Perform Med Rec) 1 each MISCELLANE ONCE PRN PRN Reason: Consult order Polyethylene Glycol (Polyethylene Glycol 3350 17 Gm Powd.Pack) 17 gm PO DAILY PRN PRN Reason: Constipation Last Admin: 10/20/22 01:09 Dose: 17 gm Documented By: NEELAM Labs 10/20/22 06:17 10/20/22 06:17 Labs: Laboratory Results - last 24 hr 10/20/22 10/20/22 10/20/22 09:54 11:45 13:39 O2 Saturation 97.0 ABG pH at Pt Temp 7.38 ABG pCO2 at Pt Temp 74 H* ABG pO2 at Pt Temp 83 ABG HCO3 44 H ABG Base Excess (Actual) 15.7 VBG pH 7.39 VBG pCO2 75 VBG pO2 106 VBG HCO3 46 H VBG O2 Saturation 99.0 VBG Base Excess 16.9 POC Glucose 155 H COVID-19 (PAPO) COVID-19 Clin Com 10/20/22 10/20/22 10/20/22 16:28 17:23 20:48 O2 Saturation ABG pH at Pt Temp ABG pCO2 at Pt Temp ABG pO2 at Pt Temp ABG HCO3 ABG Base Excess (Actual) VBG pH VBG pCO2 VBG pO2 VBG HCO3 VBG O2 Saturation VBG Base Excess POC Glucose 160 H 172 H COVID-19 (PAPO) Negative COVID-19 Clin Com See Note 10/21/22 07:11 O2 Saturation ABG pH at Pt Temp ABG pCO2 at Pt Temp ABG pO2 at Pt Temp ABG HCO3 ABG Base Excess (Actual) VBG pH VBG pCO2 VBG pO2 VBG HCO3 VBG O2 Saturation VBG Base Excess POC Glucose 187 H COVID-19 (PAPO) COVID-19 Clin Com Microbiology Microbiology Results: Microbiology 10/19/22 17:45 Blood Culture - Preliminary Blood - Venous No growth after 24 hours. 10/19/22 17:31 Blood Culture - Preliminary Blood - Venous No growth after 24 hours. Assessment and Plan (1) Hypercapnic respiratory failure: Status: Acute (2) Asthma-COPD overlap syndrome: Status: Acute Plan 52-year-old woman known to the hospitalist service admitted with shortness of breath and hypercarbia. Chronically on BiPAP support at home and chronically on prednisone Acute on chronic hypoxic and hypercarbic respiratory failure Initially treated in the ICU with acute BiPAP support Started on IV Solu-Medrol b.i.d., scheduled DuoNebs, azithromycin Continue nasal cannula oxygen, BiPAP p.r.n. during the day and scheduled at bedtime Constipation KUB showing stool retention Large bowel movement yesterday Hypertension Continue home medications Chronic rib fractures Likely secondary to chronic steroid use Complaints of pain to left rib area Can use lidocaine patches Diabetes mellitus type 2 with hyperglycemia Sliding scale and Lantus ADA diet Chronic opiate dependence Continue methadone Mental health Continue home medications DVT prophylaxis Lovenox Attending Dr. Jones Full code Patient requires continued hospitalization for treatment of acute hypoxic and hypercarbic respiratory requiring IV steroids and intermittent BiPAP Time Spent With Patient Time: Total time managing care of this patient today ____ minutes. Quality Stroke Does the patient have a stroke diagnosis?: No VTE Prior VTE?: No VTE Risk Level:: Medical - moderate - high VTE Device Contraindication: Treatment Not Indicated VTE Drug Contraindication: N/A - Med Ordered
[2022-10-21 11:45] LABS: Glucose, Whole Blood 334 mg/dL (60-115)
[2022-10-21] MEDS: oxyCODONE HCl Immed Release 5 MG TABLET PO (12:54)
[2022-10-21] MEDS: Lidocaine 4 % Patch ADH..PATCH 1 PATCH TRANSDERMA (12:54)
--- NOTE | 2022-10-21 13:18 | MHC.CM.PN ---
EMR reviewed and per MD rounds, pt is not medically cleared for D/C today due to the continued treatment of hypoxia requiring IV steroids and intermittent BiPAP. Pt will likely D/C tomorrow with resumption of previous services. CM will continue to follow.
[2022-10-21 16:04] LABS: Glucose, Whole Blood 168 mg/dL (60-115)
[2022-10-21] MEDS: clonazePAM 1 MG TABLET PO (20:28)
[2022-10-21] MEDS: Gabapentin 300 MG CAPSULE PO (20:28)
[2022-10-21 21:21] LABS: Glucose, Whole Blood 306 mg/dL (60-115)
[2022-10-21] MEDS: Enoxaparin Sodium 40 MG/0.4 ML SYRINGE SUBCUT (21:43)
[2022-10-21] MEDS: Azithromycin 500 MG in 0.9 % Sodium Chloride 250 ML 125 MG IV (21:43)
[2022-10-22] VITALS (7 sets, daily range): BP systolic 155–163; BP diastolic 91–107; PULSE 110–122; RESP 20–26; TEMP 36.2–37.1; O2SAT 94–100; BMI 37.3
[2022-10-22] MEDS: methylPREDNISolone Sod Succ 40 MG/ML VIAL IVPUSH (06:15)
[2022-10-22 07:37] LABS: Glucose, Whole Blood 192 mg/dL (60-115)
[2022-10-22] MEDS: Albuterol/Iprat 2.5/0.5MG 3 ML AMPUL.NEB INHALE ×3 (07:58→11:42)
[2022-10-22] MEDS: Lidocaine 4 % Patch ADH..PATCH 1 PATCH TRANSDERMA (07:59)
[2022-10-22] MEDS: methADONE HCl 20 MG/2 ML ORAL.CONC 50 MG PO (08:00)
[2022-10-22] MEDS: Famotidine/PF 20 MG/2 ML VIAL IVPUSH (08:00)
[2022-10-22] MEDS: lisinopriL 20 MG TABLET PO (08:00)
[2022-10-22] MEDS: Insulin Lispro 100 UNIT/ML 3 ML VIAL SUBCUT ×2 (08:09→11:33)
[2022-10-22 11:17] LABS: Glucose, Whole Blood 334 mg/dL (60-115)
--- NOTE | 2022-10-22 12:02 | PM.DS ---
DS: Providers Provider Date of Service: 10/22/22 Date of admission: 10/19/22 22:33 Date of discharge: 10/22/22 Primary care physician: Kelli Benavides MD Attending physician on discharge: Marielos Guillermo Discharging clinician: Marielos Guillermo DS: Diagnosis Discharge Diagnosis (1) Hypercapnic respiratory failure: Status: Acute (2) Asthma-COPD overlap syndrome: Status: Acute DS: Summary Hospital Course Hospital Course: 52-year-old woman with a past medical history of asthma COPD overlap syndrome, chronic? hypercarbic and hypoxic respiratory failure currently on 3l via [place] home oxygen, on chronic steroids,? diabetes mellitus, hypertension, hyperlipidemia, tobacco use, and Hypogammaglobulinemia on IVIG,? opioid dependence on methadone who presented to emergency department with dyspnea.? Patient reports wheezing x4 days, constipation x3 days and noncompliance with CPAP for the last 3 days ?Laboratory data significant for the WBC 22, Serum bicarb 31. ABGs initially? 7.31/77/64/39? but after 2 hours of BiPAP? worsened to 7.25 / 89/47/39. Patient continued mentating well. Vitals stable IMAGING: : Chest Xray: no acute infection, but some evidence of congestion? KUB- Moderate stool retention ?ED course:? patient received? albuterol? 7.5,? methylprednisolone 60 mg, ceftriaxone 1 g, doxy 100,? and azithromycin.? Hospital course: Patient has history of asthma COPD overlap syndrome came to the hospital because shortness breath found to have acute hypoxemic/hypercarbic respiratory failure secondary to COPD exacerbation as well as C Pap noncompliance: Was initially admitted to ICU for for BiPAP support, also requiring IV Solu-Medrol, nebs, azithromycin, subsequently patient seems to be improved and sent floor, patient feeling much better today and near her baseline so going home with p.o. steroids and antibiotics. Complete the course of steroid and antibiotics. Patient was strongly advised for CPAP compliance. Follow-up with Pulmonary outpatient. Constipation: Continue Colace and added MiraLax, patient is passing bowels no abdominal pain . Further management outpatient. plan: complete course of antibiotics and steriods. Patient was strongly advised for CPAP compliance. Above management discussed with the patient in detail length she understand and in agreement with the above plan, time spent 50 minutes and 50% time spent on counseling. ? Time Spent with Patient Time attestation: Total time managing care of this patient today ____ minutes. Discharge coordination time: Greater than 30 minutes Quality: Safe Use of Opioids Does Pt have an Active Cancer Diagnosis on the Problem List?: No Quality: Stroke Does the patient have a stroke diagnosis?: No Physical Exam Vital Signs: Vital Signs: Last Vital Signs Temp 98.1 F 10/22/22 10:57 Pulse 122 H 10/22/22 11:43 Resp 20 10/22/22 11:43 BP 163/91 H 10/22/22 10:57 Pulse Ox 96 10/22/22 10:57 O2 Del Method Nasal Cannula 10/22/22 10:57 O2 Flow Rate 3 10/22/22 10:57 FiO2 28 10/21/22 23:59 Oxygen Flow Rate 3 10/19/22 16:58 BMI result Body Mass Index 37.3 DS: Data Data Completed and Pending Completed studies during hospitalization [Text1]: Procedures Assistance with Respiratory Ventilation, 24-96 Consecutive Hours, Continuous Positive Airway Pressure (05/18/21) Assistance with Respiratory Ventilation, Less than 24 Consecutive Hours, Continuous Positive Airway Pressure (07/28/22) Insertion of Endotracheal Airway into Trachea, Via Natural or Artificial Opening (12/21/21) Insertion of Infusion Device into Right Atrium, Percutaneous Approach (12/21/21) Insertion of Infusion Device into Right Brachial Vein, Percutaneous Approach (07/28/22) Insertion of Infusion Device into Superior Vena Cava, Percutaneous Approach (11/02/21) Introduction of Vasopressor into Peripheral Vein, Percutaneous Approach (12/21/21) Respiratory Ventilation, 24-96 Consecutive Hours (12/21/21) Ultrasonography of Superior Vena Cava, Guidance (12/21/21) Labs on day of discharge: Laboratory Results - last 24 hr 10/21/22 10/21/22 10/22/22 16:00 21:17 07:27 POC Glucose 168 H 306 H 192 H 10/22/22 11:03 POC Glucose 334 H Preliminary micro results at discharge 10/19/22 17:45 Blood Culture - Preliminary Blood - Venous No growth after 48 hours. 10/19/22 17:31 Blood Culture - Preliminary Blood - Venous No growth after 48 hours. Imaging Chest x-ray: Radiologist's impression: ITS Impressions Chest X-Ray 10/19/22 18:36 IMPRESSION: Unremarkable chest radiograph. Moderate stool retention.. KUB X-Ray 10/19/22 18:36 IMPRESSION: Unremarkable chest radiograph. Moderate stool retention.. Discharge Plan Discharge Anticipated Discharge Date/Time: 10/22/22 11:52 Patient Disposition: Home, Self-Care Discharge Diagnosis: copd excerebation,constipation Referrals: [facility] [Other] - 1 Week Kelli Benavides MD [Primary Care Provider] - 1 Week Discharge Medications: New polyethylene glycol 3350 [Miralax] 17 gram/dose powder 17 g PO DAILY PRN (Reason: constipation) Qty: 238 0RF prednisone 20 mg tablet 40 mg PO DAILY Qty: 10 0RF azithromycin 250 mg tablet 250 mg PO DAILY 4 Days Qty: 4 0RF Rx Instructions: start on day 2 of therapy Continued Brovana 15 mcg/2 mL solution for nebulization 2 ml inhalation Q12H 30 Days Qty: 120 11RF Spiriva with HandiHaler 18 mcg capsule, w/inhalation device 1 cap inhalation DAILY Qty: 30 11RF budesonide 0.5 mg/2 mL suspension for nebulization 0.5 mg inhalation BID Qty: 120 11RF ipratropium-albuterol 0.5 mg-3 mg(2.5 mg base)/3 mL solution for nebulization 3 ml PO Q4H PRN (Reason: for wheezing) Qty: 540 6RF sodium chloride 7 % solution for nebulization 4 ml inhalation BID Qty: 240 11RF omeprazole 40 mg capsule,delayed release(DR/EC) 40 mg PO DAILY@0630 30 Days Qty: 30 6RF diltiazem HCl [Tiadylt ER] 360 mg capsule,extended release 24 hr 360 mg PO DAILY rosuvastatin 5 mg tablet 5 mg PO BEDTIME roflumilast [Daliresp] 500 mcg tablet 500 mcg PO DAILY insulin lispro [Humalog U-100 Insulin] 100 unit/mL solution See Protocol subcut TIDA Protocol: Insulin Correction Scale Less than or equal to 110 ---- Give (units): 0 111 to 150 Give (units): 0 151 to 200 Give (units): 2 201 to 250 Give (units): 4 251 to 300 Give (units): 6 301 to 350 Give (units): 8 Greater than 350 Give (units): 10 Call MD if Blood Glucose > : 350 metformin 500 mg tablet extended release 24 hr 1,000 mg PO BID hydralazine 25 mg tablet 25 mg PO DAILY insulin lispro 100 unit/mL solution 4 unit subcut TIDAC methadone 10 mg/mL Concentrate 50 mg PO DAILY lisinopril 40 mg tablet 40 mg PO DAILY Serevent Diskus 50 mcg/dose Blister With Device 1 inh inhalation RBID 30 Days Qty: 60 2RF simethicone [Gas Relief (simethicone)] 80 mg Tablet,Chewable 80 mg PO QIDWMHS PRN (Reason: Abdominal Distention) Qty: 30 0RF lamotrigine 150 mg tablet 150 mg PO BID alendronate 70 mg tablet 70 mg PO QWEEK lidocaine 5 % adhesive patch,medicated 1 patch topical DAILY Rx Instructions: APPLY FOR 12 HOURS THEN REMOVE FOR 12 HOURS bupropion HCl 75 mg tablet 75 mg PO DAILY cholecalciferol (vitamin D3) 1,250 mcg (50,000 unit) capsule 1,250 mcg PO 2XW calcitonin (salmon) 200 unit/actuation spray,non-aerosol 1 spray intranasal DAILY Rx Instructions: one nostril every day, alternate sides. insulin glargine [Lantus U-100 Insulin] 100 unit/mL solution 45 unit subcut BEDTIME gabapentin 300 mg capsule 300 mg PO DAILY docusate sodium 100 mg capsule 100 mg PO BID PRN (Reason: constipation) zolpidem 5 mg tablet 5 mg PO BEDTIME PRN (Reason: Sleep) clonazepam 1 mg tablet 1 mg PO BID PRN (Reason: Anxiety) ibuprofen 600 mg tablet 600 mg PO Q8H PRN (Reason: Pain) montelukast 10 mg tablet 10 mg PO BEDTIME albuterol sulfate [ProAir HFA] 90 mcg/actuation HFA aerosol inhaler 2 puff inhalation Q4H PRN (Reason: Shortness Of Breath Or Wheezing) loratadine [Claritin] 10 mg tablet 10 mg PO DAILY theophylline 450 mg tablet extended release 12 hr 450 mg PO Q12H 30 Days Qty: 60 6RF Discontinued prednisone 20 mg tablet 40 mg PO DAILY Qty: 10 0RF Discharge Orders: Discharge Order (Routine); Ordered 10/22/22 Ordered By: Marielos Guillermo Diet: Advance to usual diet Activity on Discharge: As tolerated Stand Alone Forms: Patient Portal Discharge page Care Plan Goals: Patient has history of asthma COPD overlap syndrome came to the hospital because shortness breath found to have acute hypoxemic/hypercarbic respiratory failure secondary to COPD exacerbation as well as C Pap noncompliance: Was initially admitted to ICU for for BiPAP support, also requiring IV Solu-Medrol, nebs, azithromycin, subsequently patient seems to be improved and sent floor, patient feeling much better today and near her baseline so going home with p.o. steroids and antibiotics. Complete the course of steroid and antibiotics. Patient was strongly advised for CPAP compliance. Follow-up with Pulmonary outpatient. Constipation: Continue Colace and added MiraLax, patient is passing bowels no abdominal pain . Further management outpatient. Health Concerns: as above. Plan of Treatment: as above. Assessment: as above. Discharge Date/Time: 10/22/22 14:12
--- NOTE | 2022-10-22 13:45 | MHC.CM.PN ---
Pt medically cleared for D/C home with resumption of [facility] and home O2 with [facility]. Pt has her own transportation.
== END 2022-10-22 14:12 | disposition home or self-care (01) | DRG 140 ==
LOC: HO.ED 18:26 → HO.EDOVER 22:39 → HO.ICU 23:06 → HO.IMC 10-20 14:57
PROVIDERS: Internal Medicine Cardiovascular Disease; Nurse Practitioner Acute Care; Admitting Provider Registered Nurse Community Health; Emergency Provider Emergency Medicine; PCP Family Medicine; Visit Provider Internal Medicine
DX: J44.1 Chronic obstructive pulmonary disease with (acute) exacerbation (principal); J96.21 Acute and chronic respiratory failure with hypoxia; J45.41 Moderate persistent asthma with (acute) exacerbation; E66.2 Morbid (severe) obesity with alveolar hypoventilation; K59.00 Constipation, unspecified; F11.20 Opioid dependence, uncomplicated; J96.22 Acute and chronic respiratory failure with hypercapnia; M84.48XS Pathological fracture, other site, sequela; Z20.822 Contact with and (suspected) exposure to COVID-19; T38.0X5S Adverse effect of glucocorticoids and synthetic analogues, sequela; E11.65 Type 2 diabetes mellitus with hyperglycemia; Z87.891 Personal history of nicotine dependence; Z68.37 Body mass index [BMI] 37.0-37.9, adult; Z79.4 Long term (current) use of insulin; Z79.52 Long term (current) use of systemic steroids; Z79.84 Long term (current) use of oral hypoglycemic drugs; Z79.899 Other long term (current) drug therapy
CPT/HCPCS: 36415; 71045; 74018; 80048; 80076; 80307; 82040; 82803; 82947; 83605; 83735; 83880; 84100; 84145; 84484; 85025; 87040; 87635; 93005; 94640; 94660; 99285; J0456; J0696; J1650; J2920; J2930; J3475

== ENCOUNTER → 2022-10-19 17:02 | Outpatient (BNV) | payer MEDICAID, SELFPAY | PROVIDERS: Admitting Provider Registered Nurse Community Health; Emergency Provider Emergency Medicine; Visit Provider Internal Medicine | DX: R00.0 Tachycardia, unspecified (principal); R94.31 Abnormal electrocardiogram [ECG] [EKG] | CPT/HCPCS: 93010 ==

== ENCOUNTER → 2022-10-19 22:33 | Outpatient (BNV) | payer MEDICAID, SELFPAY | PROVIDERS: Admitting Provider Registered Nurse Community Health; Emergency Provider Emergency Medicine; Visit Provider Nurse Practitioner Acute Care | DX: J96.92 Respiratory failure, unspecified with hypercapnia (principal); J44.9 Chronic obstructive pulmonary disease, unspecified | CPT/HCPCS: 99232; 99239; 99499 ==

== ENCOUNTER → 2022-10-19 22:33 | Outpatient (BNV) | payer MEDICAID, SELFPAY | PROVIDERS: Admitting Provider Registered Nurse Community Health; Emergency Provider Emergency Medicine; Visit Provider Registered Nurse Community Health | DX: J45.41 Moderate persistent asthma with (acute) exacerbation (principal); J96.21 Acute and chronic respiratory failure with hypoxia; J96.22 Acute and chronic respiratory failure with hypercapnia; J45.901 Unspecified asthma with (acute) exacerbation; E11.9 Type 2 diabetes mellitus without complications; I10 Essential (primary) hypertension; E66.01 Morbid (severe) obesity due to excess calories; F11.20 Opioid dependence, uncomplicated; G47.33 Obstructive sleep apnea (adult) (pediatric); R09.89 Other specified symptoms and signs involving the circulatory and respiratory systems; K59.00 Constipation, unspecified | CPT/HCPCS: 99291 ==

== ENCOUNTER 2022-10-29 12:41 | Outpatient (AMB) | payer MEDICAID, SELFPAY ==
--- NOTE | 2022-10-29 12:52 | A.OFFVIS_ITS ---
Intake Vital Signs 10/29/22 12:56 Height 5 ft 1 in Weight 188 lb 7.924 oz BMI 35.6 BP 122/56 L Blood Pressure Location Lt brachial Position Sitting Pulse 122 H Pulse Source Pulse Oximeter Pulse Oximetry (%) 93 Oxygen Delivery Method Nasal Cannula Oxygen Flow Rate 2 Intake Visit Reasons: Cough/Phlegm Circus Train Supervisor Required: Yes Circus Train Supervisor Name: ivonne [id number] Information Interpreted: non-clinical & clinical Tool Or Die Drawing Checker: Tool Or Die Drawing Checker offered & declined Accompanied by: FOOD PREPARATION SUPERVISOR Allergies No Known Allergies [No Known Allergies*] Allergy (Verified 10/29/22 13:01) HPI Cough/Phlegm HPI Details Anju is a 52 year old female, current smoker, followed for asthma COPD overlap syndrome, chronic hypercarbic and hypoxic respiratory failure currently on 2.5 L via [place] home oxygen, on chronic steroids with underlying diabetes mellitus, hypertension, hyperlipidemia and Hypogammaglobulinemia on IVIG. She reports recent hospital admission for exacerbation, 10/19-10/22. She was discharged on azithromycin, prednisone and felt she returned back to baseline. Today she presents for an acute visit. She reports increased dyspnea, wheezing and productive cough with yellow sputum that started Friday. She has been using her duoneb every 4 hours with partial relief. She had a treatment prior to this visit. She denies any chest tightness, hemoptysis or chest pain.She denies any fevers, chills or sick contacts. [facility] Medical History Abdominal pain Abnormal chest x-ray Acute and chronic respiratory failure with hypercapnia Acute respiratory failure Aspiration into airway Asthma-COPD overlap syndrome Bacteremia Cellulitis Chronic constipation Chronic respiratory failure Chronic respiratory failure Congestive heart failure COPD (chronic obstructive pulmonary disease) COPD exacerbation COPD mixed type Cor pulmonale Diabetes mellitus Essential hypertension Hyperlipidemia, unspecified Hypertensive cardiovascular disease Hypogammaglobulinemia Leukocytosis Limb swelling Morbid obesity Morbid obesity Opioid dependence CHITO (obstructive sleep apnea) Poor dentition Pulmonary congestion Pulmonary nodule Rib fractures Status asthmaticus with COPD (chronic obstructive pulmonary disease) Tobacco abuse Type 2 diabetes mellitus Type 2 diabetes mellitus with unspecified complications Vomiting Surgical History H/O tubal ligation Family History Father Diabetes Other Asthma Social History (Updated 10/29/22 @ 13:03 by Tatiana Smith LPN) Household Members: Children Household Members Other:: daughter Housing: Apartment Do you presently have visiting nurse or other home services: Yes Unable to assess alcohol history related to: Unknown Alcohol intake: never Patient Tobacco Use Status: Former Tobacco user Quit Date: February 2022 Tobacco use type: Cigarette Cigarettes Per Day: 1 Years Smoked: 35 Smoked in Last 30 Days: No e-Cigarette/Vaping Use: Currently Using Second Hand Smoke Exposure: No Substance Use Type: Opiates Advance Directives Date on File: 06/12/21 service: No Current occupational status: unemployed and disabled Review of Systems Const Denies night sweats ENT Reports Normal hearing present, Denies change in voice, Denies lip swelling, Denies mouth pain, Reports nasal congestion, Reports nasal discharge and Denies tongue swelling Card Denies chest pain, Reports dyspnea and Reports dyspnea on exertion Resp Reports change in phlegm color, Reports chest congestion, Reports cough, Denies hemoptysis, Reports dyspnea, Reports dyspnea on exertion and Reports wheezing GI Reports abdominal pain Musc Denies no additional complaints Neuro Reports Normal hearing present and Denies Neuro-related abnormal movements Psych Denies no additional complaints Blade/Lymph Denies easy bleeding and Denies lymphadenopathy Aller/Immun Denies lip swelling, Denies tongue swelling and Reports wheezing Physical Exam Vital Signs: Last Vital Signs Pulse 122 H 10/29/22 12:56 BP 122/56 L 10/29/22 12:56 Pulse Ox 93 10/29/22 12:56 Oxygen Delivery Method Nasal Cannula 10/29/22 12:56 Oxygen Flow Rate 2 10/29/22 12:56 BMI result Body Mass Index 35.6 Const General: cooperative, comfortable, no acute distress, well developed and alert Orientation/consciousness: patient oriented x3 Limitations: wheelchair HEENT Head: Yes normal to inspection, Yes normocephalic and Yes atraumatic Ears: hearing grossly normal bilaterally and external ears normal Eyes General: appearance normal, both eyes and all related structures Eyelids: Yes eyelids normal Sclerae: sclerae normal EOM: EOMs intact bilaterally Neck Neck: Yes normal visual inspection and Yes no lymphadenopathy Lymphatic: no lymphadenopathy noted Chest Chest palpation & inspection: normal inspection of the chest Resp Effort & Inspection: normal respiratory effort, able to speak in complete sentences, no audible wheezes, no stridor, not tachypneic, no tripod positioning and no use of accessory muscles Auscultation: wheezes expiratory wheezes and throughout Cardio Jugular venous distension: no JVD Rate: regular rate Rhythm: regular rhythm Skin Other: warm, dry General skin exam: no rashes or lesions noted Neuro General: patient oriented x3 Cranial nerves: Yes Normal hearing present Cognition (Neuro): normal cognition Extrem General: Yes normal to inspection, Yes capillary refill normal, Yes no clubbing, cyanosis or edema and Yes no pedal edema Psych Appearance: grossly normal and well kempt Speech and movement: Normal speech and movement present and Clear speech present Affect: normal affect Attitude: cooperative Thought process: Normal thought process present Thought content: Normal thought content present Insight: Good insight present (Psych) Judgement: Good judgement present (Psych) Assessment & Plan Assessment & Plan (1) Asthma-COPD overlap syndrome: Code(s): J44.9 - Chronic obstructive pulmonary disease, unspecified (2) Chronic respiratory failure: Code(s): J96.10 - Chronic respiratory failure, unspecified whether with hypoxia or hypercapnia Qualifiers: Respiratory failure complication: hypoxia and hypercapnia Qualified Code(s): J96.11 - Chronic respiratory failure with hypoxia; J96.12 - Chronic respiratory failure with hypercapnia Plan Will treat bronchitic symptoms with Augmentin, as she just completed azithromycin. Will also send in an extended prednisone taper. She is aware if symptoms do not improve or worsen seek emergent care. All questions were answered and patient is in agreement of plan. Will follow up for regularly scheduled appointment with Dr. Brito in two weeks or sooner if needed. Medications: New amoxicillin-pot clavulanate 875-125 mg 1 tab PO Q12H 20 tabs 0RF prednisone Take 6 tabs daily x 3 days, then 5 tabs x 3 days, then 4 tabs x 3 days, then 3 tabs x 3 days, then back to daily dose of 20 mg 10 mg PO DIRECTED 54 tabs 0RF Discontinued insulin glargine 35 units (0.35 mL) subcut BEDTIME 10 mL 0RF gabapentin 300 mg PO BID 60 caps 3RF Quality Reporting (2019) Adult ([facility] 138/2//69) Smoking risk assessment performed?: Yes Patient Tobacco Use Status: Former Tobacco user Coding Level of Care Code Est Pt Level 4 (75627) Diagnoses Asthma-COPD overlap syndrome J44.9 Chronic respiratory failure J96.11; J96.12 Respiratory failure complication: hypoxia and hypercapnia
[2022-10-29 12:56] VITALS: BP 122/56; PULSE 122; O2SAT 93; BMI 35.6
== END 2022-10-29 13:40 | disposition home or self-care (01) ==
PROVIDERS: PCP Family Medicine; Visit Provider Nurse Practitioner Family
DX: J44.9 Chronic obstructive pulmonary disease, unspecified (principal); J96.11 Chronic respiratory failure with hypoxia; J96.12 Chronic respiratory failure with hypercapnia
CPT/HCPCS: 99214

== ENCOUNTER → 2022-10-29 12:41 | Outpatient (BNVA) | payer MEDICAID, SELFPAY | PROVIDERS: PCP Family Medicine; Visit Provider Nurse Practitioner Family | DX: J44.9 Chronic obstructive pulmonary disease, unspecified (principal); J96.11 Chronic respiratory failure with hypoxia; J96.12 Chronic respiratory failure with hypercapnia | CPT/HCPCS: 99212; 99214 ==

== ENCOUNTER 2022-11-03 12:32 | Emergency (ER) | payer MEDICAID, SELFPAY ==
--- NOTE | ~2022-11-03 | XR_ITS ---
EXAMINATION: XR chest 1V CLINICAL INFORMATION: Reason for Exam cough COMPARISON: Prior chest x-ray 10/19/2022 TECHNIQUE: XR chest 1V Tubes and lines: None Lungs and pleura: Both lungs are clear. Heart and mediastinum: The mediastinum is within normal limits.. Bones/soft tissue: Skeletal structures included are normal for patient's age. XR/XR chest 1V IMPRESSION: No radiographic evidence of acute cardiopulmonary disease.
[2022-11-03 12:37] VITALS: BP 155/79; BP 158/98; PULSE 122; PULSE 125; RESP 20; O2SAT 98; BMI 36.5
--- NOTE | 2022-11-03 12:37 | ED_ITS ---
HPI - Asthma General Chief Complaint: Upper Respiratory Symptoms Stated Complaint: Poss COPD exacerbation per EMS Time Seen by Provider: 11/03/22 12:36 Source: patient, EMS and old records reviewed Mode of arrival: EMS Limitations: no limitations History of Present Illness HPI Narrative: 52 yo female with PMH of asthma-COPD overlap syndrome 2.5L home O2 and CPAP use dependent on chronic steroids current dose 20mg daily, quit smoking recently, HTN, DM, obesity, chronic pain syndrome?on methadone, hypogammaglobulinemia on IVIG recent admission requiring brief ICU stay for rescue bipap - DC 10/23 from the floors on steroids and azithromycin comes in today with c/o feeling increased shortness of breath, dry cough, wheezing for the past 2 days - took nebs today and used her CPAP more than usual. States she even took 40mg prednisone this AM. She has no chest pain. She has no fevers or change in sputum. She called 911 because her O2 went to 88% on her 2.5L NC and she became nervouse complaint: asthma attack , shortness of breath and wheezing Onset (ago): day(s) (2) Severity: moderate Context: other (chronic respiratory failure) Associated symptoms: dry cough Asthma History: childhood onset Treatments Prior to Arrival: inhaled bronchodilator, oxygen and CPAP Related Data Home Medications Medication Instructions Recorded Confirmed albuterol sulfate 90 mcg/actuation 2 puff inhalation Q4H PRN 12/30/19 10/20/22 aerosol inhaler (ProAir HFA) Shortness Of Breath Or Wheezing loratadine 10 mg tablet (Claritin) 10 mg PO DAILY 12/30/19 10/20/22 montelukast 10 mg tablet 10 mg PO BEDTIME 12/30/19 10/20/22 diltiazem HCl 360 mg capsule,24 360 mg PO DAILY 11/16/20 10/20/22 hr,extended release (Tiadylt ER) roflumilast 500 mcg tablet 500 mcg PO DAILY 11/16/20 10/20/22 (Daliresp) rosuvastatin 5 mg tablet 5 mg PO BEDTIME 11/16/20 10/20/22 insulin lispro 100 unit/mL See Protocol subcut TIDAC 12/14/20 10/20/22 subcutaneous solution (Humalog U-100 Insulin) metformin 500 mg tablet,extended 1,000 mg PO BID 05/18/21 10/20/22 release 24 hr methadone 10 mg/mL oral concentrate 50 mg PO DAILY 06/06/21 10/20/22 lisinopril 40 mg tablet 40 mg PO DAILY 07/30/21 10/20/22 hydralazine 25 mg tablet 25 mg PO DAILY 11/02/21 10/20/22 insulin lispro 100 unit/mL 4 unit subcut TIDAC 11/02/21 10/20/22 subcutaneous solution clonazepam 1 mg tablet 1 mg PO BID PRN Anxiety 06/28/22 10/20/22 ibuprofen 600 mg tablet 600 mg PO Q8H PRN Pain 06/28/22 10/20/22 alendronate 70 mg tablet 70 mg PO QWEEK 07/29/22 10/20/22 lamotrigine 150 mg tablet 150 mg PO BID 07/29/22 10/20/22 lidocaine 5 % topical patch 1 patch topical DAILY 07/29/22 10/20/22 bupropion HCl 75 mg tablet 75 mg PO DAILY 09/30/22 10/20/22 calcitonin (salmon) 200 1 spray intranasal DAILY 09/30/22 10/20/22 unit/actuation nasal spray cholecalciferol (vitamin D3) 1,250 1,250 mcg PO 2XW 09/30/22 10/20/22 mcg (50,000 unit) capsule gabapentin 300 mg capsule 300 mg PO DAILY 09/30/22 10/20/22 insulin glargine 100 unit/mL 45 unit subcut BEDTIME 09/30/22 10/20/22 subcutaneous solution (Lantus U-100 Insulin) docusate sodium 100 mg capsule 100 mg PO BID PRN constipation 10/20/22 10/20/22 zolpidem 5 mg tablet 5 mg PO BEDTIME PRN Sleep 10/20/22 10/20/22 Previous Rx's Medication Instructions Recorded salmeterol 50 mcg/dose blister 1 inh inhalation RBID 30 days #60 01/05/22 powder for inhalation (Serevent ea Diskus) simethicone 80 mg chewable tablet 80 mg PO QIDWMHS PRN Abdominal 01/05/22 (Gas Relief (simethicone)) Distention #30 tabs theophylline 450 mg 450 mg PO Q12H 30 days #60 tabs 05/08/22 tablet,extended release,12 hr arformoterol 15 mcg/2 mL solution 2 ml inhalation Q12H 30 days #120 06/07/22 for nebulization (Brovana) mL tiotropium bromide 18 mcg capsule 1 cap inhalation DAILY #30 ea 07/09/22 with inhalation device (Spiriva with HandiHaler) budesonide 0.5 mg/2 mL suspension 0.5 mg (2 mL) inhalation BID #120 08/15/22 for nebulization mL ipratropium 0.5 mg-albuterol 3 mg 3 ml PO Q4H PRN for wheezing #540 09/02/22 (2.5 mg base)/3 mL nebulization mL soln sodium chloride 7 % for 4 ml inhalation BID #240 mL 09/20/22 nebulization omeprazole 40 mg capsule,delayed 40 mg PO DAILY@0630 30 days #30 09/24/22 release caps azithromycin 250 mg tablet 250 mg PO DAILY 4 days #4 tabs 10/22/22 polyethylene glycol 3350 17 17 g PO DAILY PRN constipation 10/22/22 gram/dose oral powder (Miralax) #238 grams prednisone 20 mg tablet 40 mg PO DAILY #10 tabs 10/22/22 amoxicillin 875 mg-potassium 1 tab PO Q12H #20 tabs 10/29/22 clavulanate 125 mg tablet prednisone 10 mg tablet 10 mg PO DIRECTED #54 tabs 10/29/22 Allergies Allergy/AdvReac Type Severity Reaction Status Date / Time No Known Allergies Allergy Verified 10/29/22 13:01 [No Known Allergies*] Review of Systems Review of Systems: Constitutional : No Fever, No Chills ENT/Mouth : No Hoarseness, No sore throat, No Rhinorrhea Cardiovascular : No Chest Pain, positive SOB, positive Dyspnea on Exertion, No Edema Respiratory : positive Cough, No Sputum, positive Wheezing, Gastrointestinal : No Nausea, No Vomiting, No Diarrhea, No abdominal Pain Genitourinary : No Dysuria, No Hematuria Musculoskeletal : No joint pain, No Myalgias Skin : No rash Neuro : No Weakness, No Numbness, No Headache Psych : No anxiety, depression All other systems reviewed and are negative PMFSH Past Medical History Attestation statement: The following information was validated with the patient. Source: old records reviewed Medical History Abdominal pain Abnormal chest x-ray Acute and chronic respiratory failure with hypercapnia Acute respiratory failure Aspiration into airway Asthma-COPD overlap syndrome Bacteremia Cellulitis Chronic constipation Chronic respiratory failure Chronic respiratory failure Congestive heart failure COPD (chronic obstructive pulmonary disease) COPD exacerbation COPD mixed type Cor pulmonale Diabetes mellitus Essential hypertension Hyperlipidemia, unspecified Hypertensive cardiovascular disease Hypogammaglobulinemia Leukocytosis Limb swelling Morbid obesity Morbid obesity Opioid dependence CHITO (obstructive sleep apnea) Poor dentition Pulmonary congestion Pulmonary nodule Rib fractures Status asthmaticus with COPD (chronic obstructive pulmonary disease) Tobacco abuse Type 2 diabetes mellitus Type 2 diabetes mellitus with unspecified complications Vomiting Surgical History H/O tubal ligation Family History Family History Father Diabetes Other Asthma Social History Social History Household Members: Children Household Members Other:: daughter Housing: Apartment Do you presently have visiting nurse or other home services: Yes Unable to assess alcohol history related to: Unknown Alcohol intake: never Patient Tobacco Use Status: Former Tobacco user Quit Date: February 2022 Tobacco use type: Cigarette Cigarettes Per Day: 1 Years Smoked: 35 e-Cigarette/Vaping Use: Currently Using Second Hand Smoke Exposure: No Substance Use Type: Opiates Advance Directives: Yes Advance Directives on File: Yes Advance Directives Date on File: 06/12/21 service: No Current occupational status: unemployed and disabled Physical Exam Vital Signs: Vital Signs: Last Vital Signs Pulse 125 H 11/03/22 12:37 Resp 20 11/03/22 12:37 BP 155/79 H 11/03/22 12:37 Pulse Ox 98 11/03/22 12:37 O2 Del Method Aerosol Mask 11/03/22 12:37 BMI result Body Mass Index 36.5 Appearance: Alert. Oriented X3. Mild acute distress. Eyes: Pupils equal, round and reactive to light. ENT: Pharynx normal. Neck: Normal inspection. Neck supple. CVS: tachcyardic heart rate and rhythm. Pulses normal. Respiratory: Mild respiratory distress - short phrases and tachypnea. Breath sounds very diminished with diffuse insp and exp wheezes. Abdomen: Soft and nontender. Skin: Skin warm and dry. Normal skin color. Normal skin turgor. Extremities: No lower extremity edema. No calf ttp Neuro: Oriented X 3. No motor deficit. No sensory deficit. Course Course Course Narrative: ABG is excellent for Anju Medications Administered Discontinued Medications Generic Name Dose Route Start Last Admin Trade Name Jaylan PRN Reason Stop Dose Admin Methylprednisolone Sodium Succinate 60 mg 11/03/22 12:49 11/03/22 13:26 Methylprednisolone Sod Succ 125 Mg/2 Ml Vial IVPUSH 11/03/22 12:50 60 mg ONCE ONE Administration Medical Decision Making Medical Decision Making [facility] Narrative: 52 yo female with PMH of asthma-COPD overlap syndrome 2.5L home O2 and CPAP use dependent on chronic steroids current dose 20mg daily, quit smoking recently, HTN, DM, obesity, chronic pain syndrome?on methadone, hypogammaglobulinemia on IVIG recent admission requiring brief ICU stay for rescue bipap here with recurrent and chronic wheezing no fevers no chest pain no sputum production hx of same in past. at this time will give IV steroids, obtain labs and EKG - CXR. She is not as bad as usual and not hypoxic here. Her main drive to call 911 was an O2 sat of 88%. She appears much better than usual. Will monitor. Doubt pneumonia and doubt PE suspect asthma and reactive airway disease. Differential Diagnosis Differential Diagnoses: The differential diagnosis associated with the presentation includes asthma, viral syndrome Admission/Observation Consideration of admission/observation: Escalation of care including admission/observation considered looks great for Anju no hypoxia no increased work of breathing she herself feels she can go home and wants to go home will up her prednisone has all resources at home Lab Data [facility] Lab Attestation statement: I reviewed the patient's lab results. WBC chronically high due to steroids 11/03/22 13:15 11/03/22 13:15 Labs: Lab Results 11/03/22 11/03/22 11/03/22 Range/Units 13:07 13:15 13:15 WBC 14.4 H (4.8-10.8) X10*3/uL RBC 4.00 L (4.20-5.50) X10*6/uL Hgb 11.6 L (12.0-16.0) g/dl Hct 36.9 L (37.0-47.0) % MCV 92.3 (80.0-98.0) fL MCH 29.0 (27.0-33.0) pg MCHC 31.4 (31.0-35.0) g/dl RDW 13.4 (11.0-16.0) % Plt Count 297 D (160-400) X10*3/uL MPV 8.8 L (9.4-12.3) fL Immature Gran % (Auto) 1.6 H (0.0-0.4) % Neut % (Auto) 92.9 H (45-73) % Lymph % (Auto) 3.3 L (20-40) % [place] % (Auto) 1.9 L (2-11) % Eos % (Auto) 0.0 (0-4) % Baso % (Auto) 0.3 (0-2) % Lymph # (Auto) 0.5 L (1.2-4.9) X10*3/uL [place] # (Auto) 0.3 (0.1-1.2) X10*3/uL Eos # (Auto) 0.0 (0.0-0.4) X10*3/uL Baso # (Auto) 0.0 (0.0-0.2) X10*3/uL Abs Immat Gran (auto) 0.23 H (0.00-0.03) X10*3/uL Absolute Neuts (auto) 13.3 H (2.0-8.3) x10*3/uL Absolute Nucleated RBC 0.000 (0.0-0.012) X10*3/uL Nucleated RBC % (auto) 0.0 (0.0-0.2) /100WBC Smear Tech's Comments VERIFIED O2 Saturation 94.0 % ABG pH at Pt Temp 7.44 (7.35-7.45) ABG pCO2 at Pt Temp 69 H* (32-45) mmHg ABG pO2 at Pt Temp 75 L (83-108) mmHg ABG HCO3 47 H (22-26) mmol/L ABG Base Excess (Actual) 19.6 mmol/L Sodium 142 (135-145) mmol/L Potassium 3.9 (3.3-5.1) mmol/L Chloride 95 L (96-108) mmol/L Carbon Dioxide 36 H (22-29) mmol/L Anion Gap 15 (12-20) BUN 16 (9-16) mg/dL Creatinine 0.74 (0.5-1.4) mg/dL Estim Creat Clear Calc 89.5 Estimated GFR > 60 Random Glucose 327 H (60-115) mg/dL Calcium 10.5 H D (8.4-10.2) mg/dL Magnesium 2.0 (1.6-2.6) mg/dL Total Bilirubin 0.2 (0.0-1.0) mg/dL Direct Bilirubin < 0.2 (0.0-0.5) mg/dL AST 13 (5-31) U/L ALT 17 (0-31) U/L Alkaline Phosphatase 88 (39-117) U/L Troponin I High Sens (<3.5-17.0) ng/L B-Natriuretic Peptide (<100) pg/mL Total Protein 6.9 (6.5-8.0) g/dL Albumin 3.9 (3.5-5.0) g/dL COVID-19 (PAPO) (Negative) COVID-19 Clin Com 11/03/22 11/03/22 11/03/22 Range/Units 13:15 13:15 13:15 WBC (4.8-10.8) X10*3/uL RBC (4.20-5.50) X10*6/uL Hgb (12.0-16.0) g/dl Hct (37.0-47.0) % MCV (80.0-98.0) fL MCH (27.0-33.0) pg MCHC (31.0-35.0) g/dl RDW (11.0-16.0) % Plt Count (160-400) X10*3/uL MPV (9.4-12.3) fL Immature Gran % (Auto) (0.0-0.4) % Neut % (Auto) (45-73) % Lymph % (Auto) (20-40) % [place] % (Auto) (2-11) % Eos % (Auto) (0-4) % Baso % (Auto) (0-2) % Lymph # (Auto) (1.2-4.9) X10*3/uL [place] # (Auto) (0.1-1.2) X10*3/uL Eos # (Auto) (0.0-0.4) X10*3/uL Baso # (Auto) (0.0-0.2) X10*3/uL Abs Immat Gran (auto) (0.00-0.03) X10*3/uL Absolute Neuts (auto) (2.0-8.3) x10*3/uL Absolute Nucleated RBC (0.0-0.012) X10*3/uL Nucleated RBC % (auto) (0.0-0.2) /100WBC Smear Tech's Comments O2 Saturation % ABG pH at Pt Temp (7.35-7.45) ABG pCO2 at Pt Temp (32-45) mmHg ABG pO2 at Pt Temp (83-108) mmHg ABG HCO3 (22-26) mmol/L ABG Base Excess (Actual) mmol/L Sodium (135-145) mmol/L Potassium (3.3-5.1) mmol/L Chloride (96-108) mmol/L Carbon Dioxide (22-29) mmol/L Anion Gap (12-20) BUN (9-16) mg/dL Creatinine (0.5-1.4) mg/dL Estim Creat Clear Calc Estimated GFR Random Glucose (60-115) mg/dL Calcium (8.4-10.2) mg/dL Magnesium (1.6-2.6) mg/dL Total Bilirubin (0.0-1.0) mg/dL Direct Bilirubin (0.0-0.5) mg/dL AST (5-31) U/L ALT (0-31) U/L Alkaline Phosphatase (39-117) U/L Troponin I High Sens 13.0 (<3.5-17.0) ng/L B-Natriuretic Peptide 31 (<100) pg/mL Total Protein (6.5-8.0) g/dL Albumin (3.5-5.0) g/dL COVID-19 (PAPO) Negative (Negative) COVID-19 Clin Com See Note ABG Data Attestation ABG: I personally reviewed and interpreted this ABG as follows: Interpretation: her ABG is the best I have seen in all of her visits here. Independent Interpretation I performed an independent interpretation of an: EKG and Plain X-Ray (no pneumonia) Interpretation: Rate: 118 Rhythm: sinus tachycardia [place]: normal Normal P waves. Normal SHAHNAZ. RBBB ST T wave : no MIO qTC: 479 slightly prolonged prior studies: unchanged The study has been interpreted contemporaneously by me. . Radiology Impression Discussion of test interpretation with radiology: I have reviewed the radiologist's reading. Independent Historian Clinical information obtained from an independent historian. History obtained from or confirmed by: EMS External Record Review External record reviewed: Inpatient record Prescription Management I considered prescription management with: Other Discharge Plan Discharge Clinical Impression: Asthma-COPD overlap syndrome Patient Disposition: Home, Self-Care Instructions: Wheezing (ED) Additional Instructions: return for worsening shortness of breath, pain, difficulty breathing, swelling, fevers or any other concerns. increase your prednisone to 40mg daily for the next 4 days. use your CPAP. regrese si empeora la dificultad para respirar, el dolor, la dificultad para respirar, la hinchaz?n, la fiebre o cualquier otra inquietud. aumente motta prednisona a 40 mg diarios da los pr?ximos 4 d?as. utiliza tu CPAP. Prescriptions: No Action Brovana 15 mcg/2 mL solution for nebulization 2 ml inhalation Q12H 30 Days Qty: 120 11RF Spiriva with HandiHaler 18 mcg capsule, w/inhalation device 1 cap inhalation DAILY Qty: 30 11RF budesonide 0.5 mg/2 mL suspension for nebulization 0.5 mg inhalation BID Qty: 120 11RF ipratropium-albuterol 0.5 mg-3 mg(2.5 mg base)/3 mL solution for nebulization 3 ml PO Q4H PRN (Reason: for wheezing) Qty: 540 6RF sodium chloride 7 % solution for nebulization 4 ml inhalation BID Qty: 240 11RF omeprazole 40 mg capsule,delayed release(DR/EC) 40 mg PO DAILY@0630 30 Days Qty: 30 6RF diltiazem HCl [Tiadylt ER] 360 mg capsule,extended release 24 hr 360 mg PO DAILY rosuvastatin 5 mg tablet 5 mg PO BEDTIME roflumilast [Daliresp] 500 mcg tablet 500 mcg PO DAILY insulin lispro [Humalog U-100 Insulin] 100 unit/mL solution See Protocol subcut TIDAC Protocol: Insulin Correction Scale Less than or equal to 110 ---- Give (units): 0 111 to 150 Give (units): 0 151 to 200 Give (units): 2 201 to 250 Give (units): 4 251 to 300 Give (units): 6 301 to 350 Give (units): 8 Greater than 350 Give (units): 10 Call MD if Blood Glucose > : 350 metformin 500 mg tablet extended release 24 hr 1,000 mg PO BID hydralazine 25 mg tablet 25 mg PO DAILY insulin lispro 100 unit/mL solution 4 unit subcut TIDAC methadone 10 mg/mL Concentrate 50 mg PO DAILY lisinopril 40 mg tablet 40 mg PO DAILY Serevent Diskus 50 mcg/dose Blister With Device 1 inh inhalation RBID 30 Days Qty: 60 2RF simethicone [Gas Relief (simethicone)] 80 mg Tablet,Chewable 80 mg PO QIDWMHS PRN (Reason: Abdominal Distention) Qty: 30 0RF lamotrigine 150 mg tablet 150 mg PO BID alendronate 70 mg tablet 70 mg PO QWEEK lidocaine 5 % adhesive patch,medicated 1 patch topical DAILY Rx Instructions: APPLY FOR 12 HOURS THEN REMOVE FOR 12 HOURS bupropion HCl 75 mg tablet 75 mg PO DAILY cholecalciferol (vitamin D3) 1,250 mcg (50,000 unit) capsule 1,250 mcg PO 2XW calcitonin (salmon) 200 unit/actuation spray,non-aerosol 1 spray intranasal DAILY Rx Instructions: one nostril every day, alternate sides. insulin glargine [Lantus U-100 Insulin] 100 unit/mL solution 45 unit subcut BEDTIME gabapentin 300 mg capsule 300 mg PO DAILY docusate sodium 100 mg capsule 100 mg PO BID PRN (Reason: constipation) zolpidem 5 mg tablet 5 mg PO BEDTIME PRN (Reason: Sleep) polyethylene glycol 3350 [Miralax] 17 gram/dose powder 17 g PO DAILY PRN (Reason: constipation) Qty: 238 0RF prednisone 20 mg tablet 40 mg PO DAILY Qty: 10 0RF azithromycin 250 mg tablet 250 mg PO DAILY 4 Days Qty: 4 0RF Rx Instructions: start on day 2 of therapy clonazepam 1 mg tablet 1 mg PO BID PRN (Reason: Anxiety) ibuprofen 600 mg tablet 600 mg PO Q8H PRN (Reason: Pain) montelukast 10 mg tablet 10 mg PO BEDTIME albuterol sulfate [ProAir HFA] 90 mcg/actuation HFA aerosol inhaler 2 puff inhalation Q4H PRN (Reason: Shortness Of Breath Or Wheezing) loratadine [Claritin] 10 mg tablet 10 mg PO DAILY theophylline 450 mg tablet extended release 12 hr 450 mg PO Q12H 30 Days Qty: 60 6RF amoxicillin-pot clavulanate 875-125 mg tablet 1 tab PO Q12H Qty: 20 0RF prednisone 10 mg tablet 10 mg PO DIRECTED Qty: 54 0RF Rx Instructions: Take 6 tabs daily x 3 days, then 5 tabs x 3 days, then 4 tabs x 3 days, then 3 tabs x 3 days, then back to daily dose of 20 mg Print Language: Sami
--- NOTE | 2022-11-03 12:50 | ECG_ITS ---
Test Reason : copd exac Blood Pressure : / mmHG Vent. Rate : 118 BPM Atrial Rate : 118 BPM P-R Int : 132 ms QRS Dur : 114 ms QT Int : 342 ms P-R-T Axes : 059 014 046 degrees QTc Int : 479 ms Sinus tachycardia Incomplete right bundle branch block Inferior infarct (cited on or before 16-OCT-2022) Abnormal ECG When compared with ECG of 19-OCT-2022 18:40, No significant change was found Referred By: Sabrina Aguirre Electronically Signed By:CANDI VARGAS
[2022-11-03 13:12] LABS: ABG Base Excess 19.6 mmol/L; ABG HCO3 47 mmol/L (22-26); ABG pCO2 69 mmHg (32-45); ABG pH 7.44 (7.35-7.45); ABG pO2 75 mmHg (83-108)
[2022-11-03 13:20] LABS: Basophils Percent Auto 0.3 % (0-2); Hematocrit 36.9 % (37.0-47.0); Hemoglobin 11.6 g/dl (12.0-16.0); Imm Gran Abs Auto 0.23 X10*3/uL (0.00-0.03); Imm Gran Pct Auto 1.6 % (0.0-0.4); Lymphocytes Absolute Auto 0.5 X10*3/uL (1.2-4.9); Lymphocytes Percent Auto 3.3 % (20-40); MANUAL DIFF FLAG SCAN; Mean Corpuscular HGB Conc 31.4 g/dl (31.0-35.0); Mean Corpuscular Volume 92.3 fL (80.0-98.0); Mean Platelet Volume 8.8 fL (9.4-12.3); Monocytes Absolute Auto 0.3 X10*3/uL (0.1-1.2); Monocytes Percent Auto 1.9 % (2-11); Neutrophils Absolute Auto 13.3 x10*3/uL (2.0-8.3); Neutrophils Percent Auto 92.9 % (45-73); Platelet Count 297 X10*3/uL (160-400); Red Cell Distribution Width 13.4 % (11.0-16.0); SCAN SMEAR FLAG 1; White Blood Count 14.4 X10*3/uL (4.8-10.8)
[2022-11-03] MEDS: methylPREDNISolone Sod Succ 125 MG/2 ML VIAL 60 MG IVPUSH (13:26)
[2022-11-03 13:35] LABS: COVID-19 Test Negative (Negative); IDNOW Serial# 08D9AD1C
[2022-11-03 13:38] LABS: Alanine Aminotransferase 17 U/L (0-31); Albumin Level 3.9 g/dL (3.5-5.0); Alkaline Phosphatase 88 U/L (39-117); Anion Gap 15 (12-20); Aspartate Amino Transferase 13 U/L (5-31); Bilirubin Direct < 0.2 mg/dL (0.0-0.5); Bilirubin Total 0.2 mg/dL (0.0-1.0); Blood Urea Nitrogen 16 mg/dL (9-16); Calcium 10.5 mg/dL (8.4-10.2); Carbon Dioxide 36 mmol/L (22-29); Chloride 95 mmol/L (96-108); Creatinine Clr Calc Pharmacy 89.5; Estimated Glomerular Filt Rate > 60; Glucose Random 327 mg/dL (60-115); Potassium 3.9 mmol/L (3.3-5.1); Sodium 142 mmol/L (135-145); Total Protein 6.9 g/dL (6.5-8.0)
[2022-11-03 13:40] LABS: SLIDE REVIEW VERIFIED
[2022-11-03 13:44] LABS: B Type Natriuretic Peptide 31 pg/mL (<100)
[2022-11-03 16:10] VITALS: RESP 18; O2SAT 98
[2022-11-03 18:23] LABS: ABG Refer to POC result
== END 2022-11-03 16:14 | disposition home or self-care (01) ==
PROVIDERS: Emergency Provider Emergency Medicine
DX: J44.1 Chronic obstructive pulmonary disease with (acute) exacerbation (principal); R06.02 Shortness of breath; Z99.81 Dependence on supplemental oxygen; Z20.822 Contact with and (suspected) exposure to COVID-19; Z20.828 Contact with and (suspected) exposure to other viral communicable diseases; Z79.899 Other long term (current) drug therapy
CPT/HCPCS: 36415; 71045; 80048; 80076; 82803; 83735; 83880; 84484; 85025; 87635; 93005; 96374; 99284; J2930

== ENCOUNTER 2022-11-08 09:14 | Outpatient (REF) | payer MEDICAID, SELFPAY ==
[2022-11-08 15:38] LABS: Creatinine Urine 53.95 mg/dL; Microalbum/Creatinine Ratio Ur 53.7 ug/mg cr (<30)
[2022-11-11 14:03] LABS: HCV Log PCR <1.18 NOT DETECTED Log IU/mL (NOT DETECTED); HepC Viral Load <15 NOT DETECTED IU/mL (NOT DETECTED)
== END 2022-11-08 09:15 | disposition home or self-care (01) ==
LOC: HO.LAB 09:14
PROVIDERS: Absent Provider Family Medicine; PCP Family Medicine; Visit Provider Hospitalist
DX: B18.2 Chronic viral hepatitis C (principal); E11.65 Type 2 diabetes mellitus with hyperglycemia; Z79.4 Long term (current) use of insulin; J44.9 Chronic obstructive pulmonary disease, unspecified; J96.11 Chronic respiratory failure with hypoxia; J96.12 Chronic respiratory failure with hypercapnia; D80.1 Nonfamilial hypogammaglobulinemia; M79.89 Other specified soft tissue disorders; Z72.0 Tobacco use
CPT/HCPCS: 36415; 82043; 87522; 96372; 99212; J2930

== ENCOUNTER 2022-11-08 09:14 | Outpatient (AMB) | payer MEDICAID, SELFPAY ==
[2022-11-08 09:28] VITALS: PULSE 92; O2SAT 98; BMI 36.5
--- NOTE | 2022-11-08 09:28 | A.OFFVIS_ITS ---
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 She has been on high doses of prednisone currently on chronic steroids for ongoing respiratory issues. Recently she was placed on a prednisone taper. She is down to 30 mg at this time. She does respond well to noninvasive ventilator which she uses at nighttime and also as needed. Today she appears to be more dyspneic in appearance. It was apparent that her pulse ox was stable at 97% on her current oxygen however she was significantly tachycardic up to the 130s. I did offer her to get x-rays labs in an EKG today but, the patient opted on getting the tomorrow. I explained to her her symptoms worsen she is to go to the ER to be evaluated. We also talked about her respiratory failure where appears to be getting worse. The patient benefits from a wheelchair to help her with transportation and her appointments. She also may benefit from a sip and puff device as an accessory to noninvasive ventilator which she could potentially use it outside of the home for her progressive respiratory failure. She has been taking theophylline. Had planned to increase her theophylline. however, with the increased heart rate will hold off at this time. herABG from May 2019 demonstrated a pH 7.44 with a pCO2 of 69. Her bicarb also has been elevated at 41. Once we optimize her respiratory therapy with noninvasive ventilator will recheck her blood gas. In the meantime will check a theophylline level and also increase her theophylline level accordingly. Patient did develop worsening respiratory symptoms approximately 3-4 weeks ago. Therefore we will have her get checked for the SARS CoV 2 IgG antibodies. Unfortunately, the patient continues to smoke. We did talk about smoking cessation. Her is going to try to quit and once he quits he is not going to provide her with anymore cigarettes which should be very effective and helping her quit smoking. 07/24/2021 the patient has a telephone visit. She still complaining of the chest discomfort. It appears to be pleuritic in nature. Appears to be moderate in severity. I did send her Motrin which appears to be helping although it is helping temporarily. I did review her most recent chest x-ray starting from the end of April. It appears that she had a chest x-ray with increased perihilar congestion and evidence of airspace disease. She was treated at that point for infectious process. Subsequent x-rays in May demonstrated an area of airspace disease and also bilateral rib fractures. She continued having chest pain. Her chest x-rays continued to be abnormal demonstrating densities suspicious for the healed rib fractures. Will have the patient undergo a CT scan of the chest to better address the parenchymal lung disease in addition to the rib fractures. in addition to that the patient has been on chronic prednisone and likely has significant osteopenia putting her at risk for fractures. Will request a CT scan urgently will have her come in to evaluate the findings. In the meantime she will continue with the Motrin. 09/04/2021 the patient is here for sick visit. She had been in the hospital for a prolonged period of time after developing human metapneumovirus with significant COPD exacerbation and respiratory failure. During that visit she did have a couple CT scans which we personally reviewed demonstrating significant treating budding and ground-glass opacities suggesting viral pneumonitis. The patient was able to be discharged home. Initially felt better but then it started developing the chest discomfort again. The chest discomfort is in the reproducible. A response to Motrin. Unfortunately with her dose of prednisone this can cause significant gastritis. in the meantime the patient also has noticed increased lower extremity swelling right more than left. She did have a D-dimer checked today which was negative for any risk for thromboembolic disease. Her white count was indeed elevated with a left shift so will treated for an infectious process. The patient will be evaluated again in a few weeks. I will request a repeat CT scan during that visit. She is trying to quit smoking. She does have patches available. She had 1 yesterday and will be putting on 1 today when she gets home. She is using her oxygen regularly. She is also using her noninvasive ventilator at nighttime. The patient seems to be more motivated. 10/04/2021 the patient is here for a pulmonary follow-up visit. Overall she is doing a little better. Unfortunately she continues on 30 mg of prednisone. I did give her instructions on how to decrease his slowly by 2.5 mg every week. I am hopeful that she can get down to 20 mg. she also started her hepatitis C antibiotic therapy. Therefore she had to be taken off the theophylline. We did talk about other steroids Pauline agents that we can try once she completes the hepatitis C therapy. She continues on her nebulized therapy. She needs to call to schedule her effusions were IVIG. She continues to smoke cigarettes. She is trying to cut down. She briefly went to the ER 1-2 weeks ago for the worsening shortness of breath and chest pain. Her chest x-ray actually looks better. The patient did have an ABG at some point demonstrating a CO2 of 82 mmHg consistent with chronic hypercarbic respiratory failure. She is using her noninvasive ventilator every night. Based on degree of respiratory failure she may benefit from using it also during the daytime as well. We can also set up a sip and puff device along with it. the patient is here for Hospital follow-up visit. patient recently admitted to hospital. Initially went to the ER she was discharged home and then she was admitted to the hospital with acute on chronic hypercarbic respiratory failure. She did have venous gas done with a PCO2 of 90 which is much higher than her baseline. he was placed on BiPAP with good response. She was also given IV steroids and antibiotics. She was treated for COPD exacerbation. The patient has been taking theophylline although her theophylline levels are very low. It may have been that she was not offered during the hospital stay. Will go ahead and restart the theophylline at a higher dose with the help of maximizing her respiratory capacity. I also did reach out to her [employer] company, [employer] in order to adjust her noninvasive ventilator further. Will try to optimize the pressures higher to try to provide her with better severe to clearance. Unfortunately still smoking. This has been a bit struggle for her. I am hopeful that she can quit. The patient does require high doses of prednisone. She is starting to appear cushingoid. Appears to be steroid resistant at this time. she also does continue to use the IVIG infusions every month. Will continue to monitor. Will have to recheck her levels and see if we need to adjust the frequency or the dose. 01/25/2022 the patient is here for a follow-up visit. She recently was hospitalized with RSV and did require intubation for a brief period. She was able to be liberated from the ventilator and she will back on her noninvasive ventilation. She has been using it with good compliance. She did have an ABG prior to this visit. It appears that her CO2 is now in the 50s which is reassuring although her PaO2 on the 2 L is only 59 mmHg. The patient will increase her oxygen some to trial a keep her PO2 above 60. she quit smoking since she has been at a hospital. She is motivated this time. This is the 1st time that she is able to go this bowel of smoking which is very reassuring. She continues her IVIG infusions. These are helpful. She is also on theophylline. Her theophylline levels are within normal limits. She continues on prednisone. Seems like she cannot get below 25 mg. 04/05/2022 the patient is here for a pulmonary follow-up visit. The the patient continues to do well. She quit smoking altogether since January. She has been motivated after having a very serious admission to the hospital. She also has been able to cut down her prednisone down to 20 mg daily which is very reassuring. She continues use her noninvasive ventilator at nighttime with good effect. She also continues with the oxygen at 2 L continuously. During the office visit we did do a 6 minutes walk test. The patient on room air does desaturate down to 88% after several minutes off the oxygen. On 2 L she does improved about 97%. The patient does not ambulate too much but on 2 L she is able to maintain a pulse ox of 94% with activity. We only ambulated for about 50 ft because of significant back discomfort and leg discomfort. Will have her undergo blood work to assess her theophylline level and also her ..venous CO2 level. She does use a noninvasive ventilator but sometimes she feels a little restless prior to using it and she is wondering if she is starting to accumulate CO2. At this point based on her CO2 levels in the fact that she is tolerating her noninvasive ventilator will continue the current settings. 05/08/2022 the patient is here for a pulmonary follow-up visit. She complains of increasing dyspnea on exertion. Typically address she is on 2 L. Then with activity she does increase it to 3 or 4 L because she is very short of breath. She has been on 20 mg of prednisone. One days she did increase it because she was having shortness of breath. In addition to that she started developing pleuritic left-sided chest discomfort. She did go to the ER on the of this month. The had an x-ray done and also an EKG and cardiac enzymes. Everything looked good. The patient was discharged her medical regimen. She still continues to have that discomfort. She responded well to Lee 2 inhibitors in the past. She knows not to use Motrin or NSAIDs when she is using diclofenac. She also continues use the Trelegy at nighttime and also during the day. During the visit we did do a 6 minutes walk test. The patient actually did well on 2 L throughout the ambulation but she was very short of breath and dizzy needing to stop. It was mainly that heart rate was up in the 130s 140s. This could be a sign of cor pulmonale. The patient did have an echocardiogram demonstrating pulmonary hypertension. The patient is still struggles with her smoking. She is trying to cut down. The 05/27/2022 the patient is here for a pulmonary follow-up visit. Since we last spoke she started developing worsening productive cough with green phlegm. It was thick and tenacious. Increasing frequency. She called the office because of that and chest tightness. She was on Levaquin for 14 days. She is feeling better although I will send another week to make sure that we completely treat any potential Pseudomonas or enteric infection. The patient continues to be CT IVIG. She is also stop smoking which is reassuring. Hopefully she will see the benefits of that soon. She does complaint of left-sided pleuritic discomfort. She had been on at Lee 2 inhibitor with good effect previously. In addition to that she has had multiple x-rays without any significant findings. Her last CT scan was back in September 2021 with pulmonary nodules rib fractures and airspace disease. Will go ahead and plan to repeat the CT scan before next visit. She continues use the noninvasive ventilator and also her oxygen. Otherwise patient is without any other complaints. [facility] Medical History (Updated 11/10/22 @ 20:17 by Allan Brito MD) Abdominal pain Abnormal chest x-ray Acute and chronic respiratory failure with hypercapnia Acute respiratory failure Aspiration into airway Asthma-COPD overlap syndrome Bacteremia Cellulitis Chronic constipation Chronic respiratory failure Chronic respiratory failure Congestive heart failure COPD (chronic obstructive pulmonary disease) COPD exacerbation COPD mixed type Cor pulmonale Diabetes mellitus Essential hypertension Hyperlipidemia, unspecified Hypertensive cardiovascular disease Hypogammaglobulinemia Leukocytosis Limb swelling Morbid obesity Morbid obesity Opioid dependence CHITO (obstructive sleep apnea) Poor dentition Pulmonary congestion Pulmonary nodule Rib fractures Status asthmaticus with COPD (chronic obstructive pulmonary disease) Tobacco abuse Type 2 diabetes mellitus Type 2 diabetes mellitus with unspecified complications Vomiting Surgical History H/O tubal ligation Family History Father Diabetes Other Asthma Social History Household Members: Children Household Members Other:: daughter Housing: Apartment Do you presently have visiting nurse or other home services: Yes Unable to assess alcohol history related to: Unknown Alcohol intake: never Patient Tobacco Use Status: Former Tobacco user Quit Date: February 2022 Tobacco use type: Cigarette Cigarettes Per Day: 1 Years Smoked: 35 e-Cigarette/Vaping Use: Currently Using Second Hand Smoke Exposure: No Substance Use Type: Opiates Advance Directives Date on File: 06/12/21 service: No Current occupational status: unemployed and disabled Review of Systems Const Denies night sweats ENT Denies change in voice, Denies lip swelling, Denies mouth pain, Reports nasal congestion, Reports nasal discharge and Denies tongue swelling Card Denies chest pain, Reports dyspnea and Reports dyspnea on exertion Resp Reports change in phlegm color, Reports chest congestion, Reports cough, Denies hemoptysis, Reports pain on inspiration, Reports pain with cough, Reports dyspnea, Reports dyspnea on exertion and Reports wheezing GI Reports abdominal pain Musc Denies no additional complaints Skin/Breast Denies pruritus and Denies lesions Neuro Denies Neuro-related abnormal movements Psych Denies no additional complaints Blade/Lymph Denies easy bleeding and Denies lymphadenopathy Aller/Immun Denies lip swelling, Denies tongue swelling and Reports wheezing Physical Exam Vital Signs: Last Vital Signs Pulse 92 11/08/22 09:28 Pulse Ox 98 11/08/22 09:28 Oxygen Delivery Method Room Air 11/08/22 09:28 BMI result Body Mass Index 36.5 Last Vital Signs Temp 98.3 F 08/04/21 12:00 Pulse 102 H 08/04/21 12:00 Resp 20 08/04/21 12:00 BP 140/73 H 08/04/21 12:00 Pulse Ox 94 08/04/21 12:00 Oxygen Flow Rate 35 08/03/21 20:00 BMI result Body Mass Index 36.9 Const General: alert Neck Neck: Yes normal visual inspection, Yes full ROM and Yes no lymphadenopathy Chest Chest palpation & inspection: normal inspection of the chest Resp Effort & Inspection: prolonged expiratory phase Auscultation: no wheezes and diminished lung sounds Cardio Rate: tachycardic Rhythm: regular rhythm Heart sounds: S1 normal heart sound present and S2 normal heart sound present GI Palpation (GI): Soft to palpation and nontender Auscultation: normal bowel sounds Skin General skin exam: rashes and/or lesions noted Extrem Right lower extremity: lower leg Details: erythema and warmth Office Meds methylprednisolone sod suc(PF) Performing Provider: Allan Brito MD Administered by: Tatiana Smith LPN on 11/08/22 10:19 Dose Route Admin Location Lot Number Expiration Date NDC [employer] 125 mg IM right buttock [id number] 12/14/24 8754-2599-68 [employer] [facility] Results Reviewed Results Reviewed: 11/08/22 09:00 methylPREDNISolone Sod Succ [SOLU-MedroL] 125 mg .ROUTE .STK-MED ONE Assessment & Plan Assessment & Plan (1) Asthma-COPD overlap syndrome: Code(s): J44.9 - Chronic obstructive pulmonary disease, unspecified (2) Chronic respiratory failure: Code(s): J96.10 - Chronic respiratory failure, unspecified whether with hypoxia or hypercapnia Qualifiers: Respiratory failure complication: hypoxia and hypercapnia Qualified Code(s): J96.11 - Chronic respiratory failure with hypoxia; J96.12 - Chronic respiratory failure with hypercapnia (3) Hypercapnic respiratory failure: Code(s): J96.92 - Respiratory failure, unspecified with hypercapnia (4) Left leg swelling: Code(s): M79.89 - Other specified soft tissue disorders (5) Tobacco abuse: Code(s): Z72.0 - Tobacco use (6) Hypogammaglobulinemia: Code(s): D80.1 - Nonfamilial hypogammaglobulinemia Plan Tobacco cessation, has not been able to quit. She is progressively worsening. She does have the NIV. May benefit for additional daytime use. LE doppler to r/o DVT repeat VBG solumedrol 125mg IM x 1 continue prednisone taper respiratory therapy, Nebs QID Needs to quit smoking contineu IVIG Daliresp start Lasix daily F/U 1-2 weeks Orders: Orders US venous duplex LE RT 11/08/22 M79.89 - Other specified soft tissue disorders Venous Blood Gas 11/08/22 J96.92 - Respiratory failure, unspecified with hypercapnia AMB Methylprednisolone Injection 11/08/22 J45.901 - Unspecified asthma with (acute) exacerbation Theophylline Today J44.9 - Chronic obstructive pulmonary disease, unspecified Medications: New furosemide (Lasix) 20 mg PO DAILY 30 tabs 2RF 30 days doxycycline monohydrate 100 mg PO BID 42 tabs 0RF 21 days Discontinued insulin glargine 35 units (0.35 mL) subcut BEDTIME 10 mL 0RF gabapentin 300 mg PO BID 60 caps 3RF Quality Reporting (2019) Adult ([facility] 138/05/08/68) Smoking risk assessment performed?: Yes Patient Tobacco Use Status: Former To bacco user Coding Level of Care Code Est Pt Level 5 (48889) Diagnoses Asthma-COPD overlap syndrome J44.9 Chronic respiratory failure J96.11; J96.12 Respiratory failure complication: hypoxia and hypercapnia Hypercapnic respiratory failure J96.92 Left leg swelling M79.89 Tobacco abuse Z72.0 Hypogammaglobulinemia D80.1 Time Spent (min) 45
== END 2022-11-08 09:57 | disposition home or self-care (01) ==
PROVIDERS: PCP Family Medicine; Visit Provider Hospitalist
DX: J45.901 Unspecified asthma with (acute) exacerbation (principal)
CPT/HCPCS: 99215

== ENCOUNTER 2022-11-12 10:22 | Outpatient (REF) | payer MEDICAID, SELFPAY ==
--- NOTE | ~2022-11-12 | MM_ITS ---
EXAMINATION: MM SCREENING DIGITAL BREAST TOMOSYNTHESIS, BILATERAL CLINICAL INFORMATION: Screening. Asymptomatic. COMPARISON: Mammography: This study is compared with prior exams dating back to 2017. TECHNIQUE: Digital breast tomosynthesis is performed in both the craniocaudal and mediolateral oblique views along with computer-aided detection (CAD). Synthesized 2D images are generated from the tomosynthesis. FINDINGS: The breasts are almost entirely fatty (ACR BI-RADS breast composition Category a). There are no significant masses, abnormal calcifications, or other abnormalities. MM/MM tomosynthesis screening BI IMPRESSION: No mammographic evidence of malignancy. ASSESSMENT: BI-RADS BI-RADS 1 - Negative RECOMMENDATION: Routine annual mammography screening. 1 year F/U This examination should not preclude the clinical evaluation of a suspicious palpable abnormality. This patient's information was entered into a reminder system with a target due date for their next mammogram.
== END 2022-11-12 10:23 | disposition home or self-care (01) ==
LOC: HO.MAMMO 10:22
PROVIDERS: PCP Family Medicine; Visit Provider Family Medicine
DX: Z12.31 Encounter for screening mammogram for malignant neoplasm of breast (principal)
CPT/HCPCS: 77063; 77067

== ENCOUNTER → 2022-11-12 10:30 | Outpatient (BNV) | payer MEDICAID, SELFPAY | PROVIDERS: PCP Family Medicine; Visit Provider Radiology Diagnostic Radiology | DX: Z12.31 Encounter for screening mammogram for malignant neoplasm of breast (principal) | CPT/HCPCS: 77063; 77067 ==

== ENCOUNTER 2022-11-13 09:22 | Outpatient (REF) | payer MEDICAID, SELFPAY ==
[2022-11-13 10:25] LABS: MANUAL DIFF FLAG NO
[2022-11-13 10:30] LABS: Venous Blood Gas Refer to POC result
[2022-11-13 10:31] LABS: Basophils Absolute Auto 0.1 X10*3/uL (0.0-0.2); Basophils Percent Auto 0.3 % (0-2); Eosinophils Absolute Auto 0.1 X10*3/uL (0.0-0.4); Eosinophils Percent Auto 0.3 % (0-4); Hematocrit 39.7 % (37.0-47.0); Hemoglobin 11.8 g/dl (12.0-16.0); Imm Gran Abs Auto 0.38 X10*3/uL (0.00-0.03); Imm Gran Pct Auto 2.2 % (0.0-0.4); Lymphocytes Absolute Auto 0.8 X10*3/uL (1.2-4.9); Lymphocytes Percent Auto 4.4 % (20-40); Mean Corpuscular HGB Conc 29.7 g/dl (31.0-35.0); Mean Corpuscular Hemoglobin 28.8 pg (27.0-33.0); Mean Corpuscular Volume 96.8 fL (80.0-98.0); Mean Platelet Volume 9.4 fL (9.4-12.3); Monocytes Absolute Auto 0.6 X10*3/uL (0.1-1.2); Monocytes Percent Auto 3.7 % (2-11); Neutrophils Absolute Auto 15.4 x10*3/uL (2.0-8.3); Neutrophils Percent Auto 89.1 % (45-73); Platelet Count 298 X10*3/uL (160-400); Red Cell Distribution Width 13.8 % (11.0-16.0); VBG Base Excess 16.8 mmol/L; VBG HCO3 46 mmol/L (22-26); VBG pCO2 77 mmHg; VBG pH 7.38 (7.32-7.43); VBG pO2 128 mmHg; White Blood Count 17.2 X10*3/uL (4.8-10.8)
[2022-11-13 11:32] LABS: Anion Gap 11 (12-20); Blood Urea Nitrogen 19 mg/dL (9-16); Calcium 10.1 mg/dL (8.4-10.2); Carbon Dioxide 42 mmol/L (22-29); Chloride 94 mmol/L (96-108); Estimated Glomerular Filt Rate > 60; Glucose Random 183 mg/dL (60-115); Potassium 3.6 mmol/L (3.3-5.1); Sodium 143 mmol/L (135-145)
[2022-11-13 22:27] LABS: Theophylline 13.2 MG/L ((10-20))
== END 2022-11-13 09:23 | disposition home or self-care (01) ==
LOC: HO.LAB 09:22
PROVIDERS: PCP Family Medicine; Visit Provider Hospitalist
DX: J44.9 Chronic obstructive pulmonary disease, unspecified (principal); J96.11 Chronic respiratory failure with hypoxia; J96.12 Chronic respiratory failure with hypercapnia; J96.92 Respiratory failure, unspecified with hypercapnia; M79.89 Other specified soft tissue disorders; D80.1 Nonfamilial hypogammaglobulinemia; Z79.899 Other long term (current) drug therapy; Z72.0 Tobacco use
CPT/HCPCS: 36415; 80048; 80198; 82803; 85025; 99212

== ENCOUNTER 2022-11-13 09:22 | Outpatient (AMB) | payer MEDICAID, SELFPAY ==
--- NOTE | 2022-11-13 09:43 | A.OFFVIS_ITS ---
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 She has been on high doses of prednisone currently on chronic steroids for ongoing respiratory issues. Recently she was placed on a prednisone taper. She is down to 30 mg at this time. She does respond well to noninvasive ventilator which she uses at nighttime and also as needed. Today she appears to be more dyspneic in appearance. It was apparent that her pulse ox was stable at 97% on her current oxygen however she was significantly tachycardic up to the 130s. I did offer her to get x-rays labs in an EKG today but, the patient opted on getting the tomorrow. I explained to her her symptoms worsen she is to go to the ER to be evaluated. We also talked about her respiratory failure where appears to be g etting worse. The patient benefits from a wheelchair to help her with transportation and her appointments. She also may benefit from a sip and puff device as an accessory to noninvasive ventilator which she could potentially use it outside of the home for her progressive respiratory failure. She has been taking theophylline. Had planned to increase her theophylline. however, with the increased heart rate will hold off at this time. herABG from May 2019 demonstrated a pH 7.44 with a pCO2 of 69. Her bicarb also has been elevated at 41. Once we optimize her respiratory therapy with noninvasive ventilator will recheck her blood gas. In the meantime will check a theophylline level and also increase her theophylline level accordingly. Patient did develop worsening respiratory symptoms approximately 3-4 weeks ago. Therefore we will have her get checked for the SARS CoV 2 IgG antibodies. Unfortunately, the patient continues to smoke. We did talk about smoking cessation. Her is going to try to quit and once he quits he is not going to provide her with anymore cigarettes which should be very effective and helping her quit smoking. 07/24/2021 the patient has a telephone visit. She still complaining of the chest discomfort. It appears to be pleuritic in nature. Appears to be moderate in severity. I did send her Motrin which appears to be helping although it is helping temporarily. I did review her most recent chest x-ray starting from the end of April. It appears that she had a chest x-ray with increased perihilar congestion and evidence of airspace disease. She was treated at that point for infectious process. Subsequent x-rays in May demonstrated an area of airspace disease and also bilateral rib fractures. She continued having chest pain. Her chest x-rays continued to be abnormal demonstrating densities suspicious for the healed rib fractures. Will have the patient undergo a CT scan of the chest to better address the parenchymal lung disease in addition to the rib fractures. in addition to that the patient has been on chronic prednisone and likely has significant osteopenia putting her at risk for fractures. Will request a CT scan urgently will have her come in to evaluate the findings. In the meantime she will continue with the Motrin. 09/04/2021 the patient is here for sick visit. She had been in the hospital for a prolonged period of time after developing human metapneumovirus with significant COPD exacerbation and respiratory failure. During that visit she did have a couple CT scans which we personally reviewed demonstrating significant treating budding and ground-glass opacities suggesting viral pneumonitis. The patient was able to be discharged home. Initially felt better but then it started developing the chest discomfort again. The chest discomfort is in the reproducible. A response to Motrin. Unfortunately with her dose of prednisone this can cause significant gastritis. in the meantime the patient also has noticed increased lower extremity swelling right more than left. She did have a D-dimer checked today which was negative for any risk for thromboembolic disease. Her white count was indeed elevated with a left shift so will treated for an infectious process. The patient will be evaluated again in a few weeks. I will request a repeat CT scan during that visit. She is trying to quit smoking. She does have patches available. She had 1 yesterday and will be putting on 1 today when she gets home. She is using her oxygen regularly. She is also using her noninvasive ventilator at nighttime. The patient seems to be more motivated. 10/04/2021 the patient is here for a pulmonary follow-up visit. Overall she is doing a little better. Unfortunately she continues on 30 mg of prednisone. I did give her instructions on how to decrease his slowly by 2.5 mg every week. I am hopeful that she can get down to 20 mg. she also started her hepatitis C antibiotic therapy. Therefore she had to be taken off the theophylline. We did talk about other steroids Pauline agents that we can try once she completes the hepatitis C therapy. She continues on her nebulized therapy. She needs to call to schedule her effusions were IVIG. She continues to smoke cigarettes. She is trying to cut down. She briefly went to the ER 1-2 weeks ago for the worsening shortness of breath and chest pain. Her chest x-ray actually looks better. The patient did have an ABG at some point demonstrating a CO2 of 82 mmHg consistent with chronic hypercarbic respiratory failure. She is using her noninvasive ventilator every night. Based on degree of respiratory failure she may benefit from using it also during the daytime as well. We can also set up a sip and puff device along with it. the patient is here for Hospital follow-up visit. patient recently admitted to hospital. Initially went to the ER she was discharged home and then she was admitted to the hospital with acute on chronic hypercarbic respiratory failure. She did have venous gas done with a PCO2 of 90 which is much higher than her baseline. he was placed on BiPAP with good response. She was also giv en IV steroids and antibiotics. She was treated for COPD exacerbation. The patient has been taking theophylline although her theophylline levels are very low. It may have been that she was not offered during the hospital stay. Will go ahead and restart the theophylline at a higher dose with the help of maximizing her respiratory capacity. I also did reach out to her [email or web address] company, [employer], in order to adjust her noninvasive ventilator further. Will try to optimize the pressures higher to try to provide her with better severe to clearance. Unfortunately still smoking. This has been a bit struggle for her. I am hopeful that she can quit. The patient does require high doses of prednisone. She is starting to appear cushingoid. Appears to be steroid resistant at this time. she also does continue to use the IVIG infusions every month. Will continue to monitor. Will have to recheck her levels and see if we need to adjust the frequency or the dose. 01/25/2022 the patient is here for a follow-up visit. She recently was hospitalized with RSV and did require intubation for a brief period. She was able to be liberated from the ventilator and she will back on her noninvasive ventilation. She has been using it with good compliance. She did have an ABG prior to this visit. It appears that her CO2 is now in the 50s which is reassuring although her PaO2 on the 2 L is only 59 mmHg. The patient will increase her oxygen some to trial a keep her PO2 above 60. she quit smoking since she has been at a hospital. She is motivated this time. This is the 1st time that she is able to go this bowel of smoking which is very reassuring. She continues her IVIG infusions. These are helpful. She is also on theophylline. Her theophylline levels are within normal limits. She continues on prednisone. Seems like she cannot get below 25 mg. 04/05/2022 the patient is here for a pulmonary follow-up visit. The the patient continues to do well. She quit smoking altogether since January. She has been motivated after having a very serious admission to the hospital. She also has been able to cut down her prednisone down to 20 mg daily which is very reassuring. She continues use her noninvasive ventilator at nighttime with good effect. She also continues with the oxygen at 2 L continuously. During the office visit we did do a 6 minutes walk test. The patient on room air does desaturate down to 88% after several minutes off the oxygen. On 2 L she does improved about 97%. The patient does not ambulate too much but on 2 L she is able to maintain a pulse ox of 94% with activity. We only ambulated for about 50 ft because of significant back discomfort and leg discomfort. Will have her undergo blood work to assess her theophylline level and also her ..venous CO2 level. She does use a noninvasive ventilator but sometimes she feels a little restless prior to using it and she is wondering if she is starting to accumulate CO2. At this point based on her CO2 levels in the fact that she is tolerating her noninvasive ventilator will continue the current settings. 05/08/2022 the patient is here for a pulmonary follow-up visit. She complains of increasing dyspnea on exertion. Typically address she is on 2 L. Then with activity she does increase it to 3 or 4 L because she is very short of breath. She has been on 20 mg of prednisone. One days she did increase it because she was having shortness of breath. In addition to that she started developing pleuritic left-sided chest discomfort. She did go to the ER on the 18 of this month. The had an x-ray done and also an EKG and cardiac enzymes. Everything looked good. The patient was discharged her medical regimen. She still continues to have that discomfort. She responded well to Lee 2 inhibitors in the past. She knows not to use Motrin or NSAIDs when she is using diclofenac. She also continues use the Trelegy at nighttime and also during the day. During the visit we did do a 6 minutes walk test. The patient actually did well on 2 L throughout the ambulation but she was very short of breath and dizzy needing to stop. It was mainly that heart rate was up in the 130s 140s. This could be a sign of cor pulmonale. The patient did have an echocardiogram demonstrating pulmonary hypertension. The patient is still struggles with her smoking. She is trying to cut down. The 05/27/2022 the patient is here for a pulmonary follow-up visit. Since we last spoke she started developing worsening productive cough with green phlegm. It was thick and tenacious. Increasing frequency. She called the office because of that and chest tightness. She was on Levaquin for 14 days. She is feeling better although I will send another week to make sure that we completely treat any potential Pseudomonas or enteric infection. The patient continues to be CT IVIG. She is also stop smoking which is reassuring. Hopefully she will see the benefits of that soon. She does complaint of left-sided pleuritic discomfort. She had been on at Lee 2 inhibitor with good effect previously. In addition to that she has had multiple x-rays without any significant findings. Her last CT scan was back in September 2021 with pulmonary nodules rib fractures and airspace disease. Will go ahead and plan to repeat the CT scan before next visit. She continues use the noninvasive ventilator and also her oxygen. Otherwise patient is without any other complaints. 11/13/2022 the patient is here for a pulmonary follow-up visit. The patient is still having significant difficulties with breathing. Seems to be progressing. She does use her noninvasive ventilator at nighttime and also at times during the daytime. I did encourage her to use the noninvasive ventilator more during the daytime. I will request a sip and puff device from her [email or web address] company, [employer]. With the sip and puff device she will have a more easily assessable to use it. She also understands that the noninvasive ventilator has a battery life that is able to will able to work for 6-8 hours she can use it outside of the home. The patient has been on high dose of the prednisone. She is still struggling to breathe. She recently was told that her therapy for her liver. Hepatitis was success. Her last liver function studies are within normal limits. Therefore will try her on some Imuran will monitor closely her levels of her liver function studies. If she tolerates the medication we can increase it with hopes of providing her with a different steroid sparing agent. She did have a blood gas today. She does have the chronic hypercarbic respiratory failure but without any acuity so therefore she can continue to be treated at home. The patient also had lower extremity Dopplers negative for any DVT which is reassuring. [facility] Medical History (Updated 11/10/22 @ 20:17 by Allan Brito MD) Abdominal pain Abnormal chest x-ray Acute and chronic respiratory failure with hypercapnia Acute respiratory failure Aspiration into airway Asthma-COPD overlap syndrome Bacteremia Cellulitis Chronic constipation Chronic respiratory failure Chronic respiratory failure Congestive heart failure COPD (chronic obstructive pulmonary disease) COPD exacerbation COPD mixed type Cor pulmonale Diabetes mellitus Essential hypertension Hyperlipidemia, unspecified Hypertensive cardiovascular disease Hypogammaglobulinemia Leukocytosis Limb swelling Morbid obesity Morbid obesity Opioid dependence CHITO (obstructive sleep apnea) Poor dentition Pulmonary congestion Pulmonary nodule Rib fractures Status asthmaticus with COPD (chronic obstructive pulmonary disease) Tobacco abuse Type 2 diabetes mellitus Type 2 diabetes mellitus with unspecified complications Vomiting Surgical History H/O tubal ligation Family History Father Diabetes Other Asthma Social History Household Members: Children Household Members Other:: daughter Housing: Apartment Do you presently have visiting nurse or other home services: Yes Unable to assess alcohol history related to: Unknown Alcohol intake: never Patient Tobacco Use Status: Former Tobacco user Quit Date: February 2022 Tobacco use type: Cigarette Cigarettes Per Day: 1 Years Smoked: 35 e-Cigarette/Vaping Use: Currently Using Second Hand Smoke Exposure: No Substance Use Type: Opiates Advance Directives Date on File: 06/12/21 service: No Current occupational status: unemployed and disabled Review of Systems Const Denies night sweats ENT Denies change in voice, Denies lip swelling, Denies mouth pain, Reports nasal congestion, Reports nasal discharge and Denies tongue swelling Card Denies chest pain, Reports dyspnea and Reports dyspnea on exertion Resp Reports change in phlegm color, Reports chest congestion, Reports cough, Denies hemoptysis, Reports pain on inspiration, Reports pain with cough, Reports dyspnea, Reports dyspnea on exertion and Reports wheezing GI Reports abdominal pain Musc Denies no additional complaints Skin/Breast Denies pruritus and Denies lesions Neuro Denies Neuro-related abnormal movements Psych Denies no additional complaints Blade/Lymph Denies easy bleeding and Denies lymphadenopathy Aller/Immun Denies lip swelling, Denies tongue swelling and Reports wheezing Physical Exam Vital Signs: Last Vital Signs Pulse 92 11/13/22 09:46 Pulse Ox 96 11/13/22 09:46 BMI result Body Mass Index 36.5 Last Vital Signs Temp 98.3 F 08/04/21 12:00 Pulse 102 H 08/04/21 12:00 Resp 20 08/04/21 12:00 BP 140/73 H 08/04/21 12:00 Pulse Ox 94 08/04/21 12:00 Oxygen Flow Rate 35 08/03/21 20:00 BMI result Body Mass Index 36.9 Const General: alert Neck Neck: Yes normal visual inspection, Yes full ROM and Yes no lymphadenopathy Chest Chest palpation & inspection: normal inspection of the chest Resp Effort & Inspection: prolonged expiratory phase Auscultation: no wheezes and diminished lung sounds Cardio Rate: tachycardic Rhythm: regular rhythm Heart sounds: S1 normal heart sound present and S2 normal heart sound present GI Palpation (GI): Soft to palpation and nontender Auscultation: normal bowel sounds Skin General skin exam: rashes and/or lesions noted Extrem Right lower extremity: lower leg Details: erythema and warmth Assessment & Plan Assessment & Plan (1) Asthma-COPD overlap syndrome: Code(s): J44.9 - Chronic obstructive pulmonary disease, unspecified (2) Chronic respiratory failure: Code(s): J96.10 - Chronic respiratory failure, unspecified whether with hypoxia or hypercapnia Qualifiers: Respiratory failure complication: hypoxia and hypercapnia Qualified Code(s): J96.11 - Chronic respiratory failure with hypoxia; J96.12 - Chronic res piratory failure with hypercapnia (3) Hypercapnic respiratory failure: Code(s): J96.92 - Respiratory failure, unspecified with hypercapnia (4) Left leg swelling: Code(s): M79.89 - Other specified soft tissue disorders (5) Tobacco abuse: Code(s): Z72.0 - Tobacco use (6) Hypogammaglobulinemia: Code(s): D80.1 - Nonfamilial hypogammaglobulinemia Plan Tobacco cessation, has not been able to quit. She is progressively worsening. She does have the NIV. May benefit for additional daytime use. LE doppler no DVT repeat VBG continue prednisone taper bactrim PCP prophylaxis start steroid sparing agent now, monitor liver enzymes respiratory therapy, Nebs QID Needs to quit smoking contineu IVIG Daliresp continue Lasix daily F/U 4 weeks Orders: Orders Venous Blood Gas Today J44.9 - Chronic obstructive pulmonary disease, unspecified Medications: New azathioprine (Imuran) 50 mg PO DAILY 30 days 30 tabs 6RF prednisone 40 mg (4 x 10 mg) PO DAILY 30 days 120 tabs 2RF folic acid 1 mg PO DAILY 30 days 30 tabs 6RF sulfamethoxazole-trimethoprim 400-80 mg (Bactrim) 1 tab PO DAILY 30 tabs 4RF Discontinued insulin glargine 35 units (0.35 mL) subcut BEDTIME 10 mL 0RF gabapentin 300 mg PO BID 60 caps 3RF Quality Reporting (2019) Adult ([facility] 138/05/08/68) Smoking risk assessment performed?: Yes Patient Tobacco Use Status: Former Tobacco user Coding Level of Care Code Est Pt Level 5 (02172) Diagnoses Asthma-COPD overlap syndrome J44.9 Chronic respiratory failure J96.11; J96.12 Respiratory failure complication: hypoxia and hypercapnia Hypercapnic respiratory failure J96.92 Left leg swelling M79.89 Tobacco abuse Z72.0 Hypogammaglobulinemia D80.1 Time Spent (min) 60
[2022-11-13 09:46] VITALS: PULSE 92; O2SAT 96; BMI 36.5
== END 2022-11-13 10:06 | disposition home or self-care (01) ==
PROVIDERS: PCP Family Medicine; Visit Provider Hospitalist
DX: J44.9 Chronic obstructive pulmonary disease, unspecified (principal); J96.11 Chronic respiratory failure with hypoxia; J96.12 Chronic respiratory failure with hypercapnia; F17.210 Nicotine dependence, cigarettes, uncomplicated; M79.89 Other specified soft tissue disorders; D80.1 Nonfamilial hypogammaglobulinemia
CPT/HCPCS: 99215

== ENCOUNTER 2022-11-13 11:13 | Outpatient (REF) | payer MEDICAID, SELFPAY ==
--- NOTE | ~2022-11-13 | US_ITS ---
EXAMINATION: US VENOUS ULTRASOUND WITH DOPPLER LOWER EXTREMITY, RIGHT CLINICAL INFORMATION: Right leg swelling. COMPARISON: None available. TECHNIQUE: Ultrasound of the deep veins is performed from the hip to the calf with compression sonography and color and pulse Doppler assessment. Spectral analysis with color-flow imaging is performed. FINDINGS: There is normal venous compression and respiratory variation and augmented flow. The visualized common femoral vein, superficial femoral vein, profunda femoral vein, popliteal vein, and the trifurcation region shows no evidence of deep venous thrombosis. There is no significant popliteal fossa cyst. If the patient's symptoms persist, followup ultrasound in 5 days 7 days might be of value to exclude proximal propagation from a non-visualized calf vein. US/US venous duplex LE RT IMPRESSION: No DVT demonstrated in the right lower extremity.
== END 2022-11-13 11:14 | disposition home or self-care (01) ==
LOC: HO.US 11:13
PROVIDERS: PCP Family Medicine; Visit Provider Hospitalist
DX: R60.0 Localized edema (principal)
CPT/HCPCS: 93971; J2930

== ENCOUNTER 2022-11-30 14:51 | Emergency (ER) | payer MEDICAID, SELFPAY ==
--- NOTE | ~2022-11-30 | XR_ITS ---
EXAMINATION: XR CHEST CLINICAL INFORMATION: Shortness of breath. COMPARISON: Chest radiograph done on 11/03/2022. TECHNIQUE: Frontal view of the chest was obtained. FINDINGS: Persistent stable nonspecific opacities are noted at both upper lobes corresponding to the anterior end of the second ribs as well as along the peripheral mid to lower left hemithorax and to a lesser extent lower right hemithorax, similar to prior study may represent pleural parenchymal scarring, nonspecific pleural thickening or rib fractures with healing. No evidence of any new definite focal airspace disease on either side. The cardiomediastinal silhouette is within normal limit. No evidence of any pleural effusion or pneumothorax. The visualized upper abdomen is unremarkable. XR/XR chest 1V IMPRESSION: No significant interval change since most recent prior chest radiograph done on 11/03/2022.
[2022-11-30 14:59] VITALS: BP 106/80; BP 99/57; PULSE 113; RESP 17; TEMP 36.9; O2SAT 93; BMI 36.8
[2022-11-30 15:29] LABS: COVID-19 Test Negative (Negative); IDNOW Serial# 08D9AD1C; IDNOW Serial# BCCEAD1C; Influenza A Negative (Negative); Influenza B2 Negative (Negative)
[2022-11-30 15:57] VITALS: PULSE 102; RESP 21; O2SAT 91
[2022-11-30] MEDS: Albuterol/Iprat 2.5/0.5MG 3 ML AMPUL.NEB INHALE (15:57)
--- NOTE | 2022-11-30 16:22 | ED.GENADULT ---
HPI - General Adult General Chief complaint: General Medical Stated complaint: sob, diff breathing, headache, per ems Time Seen by Provider: 11/30/22 15:21 Source: patient Mode of arrival: EMS History of Present Illness HPI narrative: 52-year-old female arrives via EMS for nausea and headache for 2 days and states overall not feeling well and reports shortness of breath. She otherwise denies sick contact Related Data Home Medications Medication Instructions Recorded Confirmed albuterol sulfate 90 mcg/actuation 2 puff inhalation Q4H PRN 12/30/19 10/20/22 aerosol inhaler (ProAir HFA) Shortness Of Breath Or Wheezing loratadine 10 mg tablet (Claritin) 10 mg PO DAILY 12/30/19 10/20/22 montelukast 10 mg tablet 10 mg PO BEDTIME 12/30/19 10/20/22 diltiazem HCl 360 mg capsule,24 360 mg PO DAILY 11/16/20 10/20/22 hr,extended release (Tiadylt ER) roflumilast 500 mcg tablet 500 mcg PO DAILY 11/16/20 10/20/22 (Daliresp) rosuvastatin 5 mg tablet 5 mg PO BEDTIME 11/16/20 10/20/22 insulin lispro 100 unit/mL See Protocol subcut TIDAC 12/14/20 10/20/22 subcutaneous solution (Humalog U-100 Insulin) metformin 500 mg tablet,extended 1,000 mg PO BID 05/18/21 10/20/22 release 24 hr methadone 10 mg/mL oral concentrate 50 mg PO DAILY 06/06/21 10/20/22 lisinopril 40 mg tablet 40 mg PO DAILY 07/30/21 10/20/22 hydralazine 25 mg tablet 25 mg PO DAILY 11/02/21 10/20/22 insulin lispro 100 unit/mL 4 unit subcut TIDAC 11/02/21 10/20/22 subcutaneous solution clonazepam 1 mg tablet 1 mg PO BID PRN Anxiety 06/28/22 10/20/22 ibuprofen 600 mg tablet 600 mg PO Q8H PRN Pain 06/28/22 10/20/22 alendronate 70 mg tablet 70 mg PO QWEEK 07/29/22 10/20/22 lamotrigine 150 mg tablet 150 mg PO BID 07/29/22 10/20/22 lidocaine 5 % topical patch 1 patch topical DAILY 07/29/22 10/20/22 bupropion HCl 75 mg tablet 75 mg PO DAILY 09/30/22 10/20/22 calcitonin (salmon) 200 1 spray intranasal DAILY 09/30/22 10/20/22 unit/actuation nasal spray cholecalciferol (vitamin D3) 1,250 1,250 mcg PO 2XW 09/30/22 10/20/22 mcg (50,000 unit) capsule gabapentin 300 mg capsule 300 mg PO DAILY 09/30/22 10/20/22 insulin glargine 100 unit/mL 45 unit subcut BEDTIME 09/30/22 10/20/22 subcutaneous solution (Lantus U-100 Insulin) docusate sodium 100 mg capsule 100 mg PO BID PRN constipation 10/20/22 10/20/22 zolpidem 5 mg tablet 5 mg PO BEDTIME PRN Sleep 10/20/22 10/20/22 nebulizers 11/08/22 Previous Rx's Medication Instructions Recorded salmeterol 50 mcg/dose blister 1 inh inhalation RBID 30 days #60 01/05/22 powder for inhalation (Serevent ea Diskus) simethicone 80 mg chewable tablet 80 mg PO QIDWMHS PRN Abdominal 01/05/22 (Gas Relief (simethicone)) Distention #30 tabs theophylline 450 mg 450 mg PO Q12H 30 days #60 tabs 05/08/22 tablet,extended release,12 hr arformoterol 15 mcg/2 mL solution 2 ml inhalation Q12H 30 days #120 06/07/22 for nebulization (Brovana) mL tiotropium bromide 18 mcg capsule 1 cap inhalation DAILY #30 ea 07/09/22 with inhalation device (Spiriva with HandiHaler) budesonide 0.5 mg/2 mL suspension 0.5 mg (2 mL) inhalation BID #120 08/15/22 for nebulization mL ipratropium 0.5 mg-albuterol 3 mg 3 ml PO Q4H PRN for wheezing #540 09/02/22 (2.5 mg base)/3 mL nebulization mL soln sodium chloride 7 % for 4 ml inhalation BID #240 mL 09/20/22 nebulization omeprazole 40 mg capsule,delayed 40 mg PO DAILY@0630 30 days #30 09/24/22 release caps polyethylene glycol 3350 17 17 g PO DAILY PRN constipation 10/22/22 gram/dose oral powder (Miralax) #238 grams prednisone 20 mg tablet 40 mg (2 x 20 mg) PO DAILY #10 tabs 10/22/22 amoxicillin 875 mg-potassium 1 tab PO Q12H #20 tabs 10/29/22 clavulanate 125 mg tablet prednisone 10 mg tablet 10 mg PO DIRECTED #54 tabs 10/29/22 doxycycline monohydrate 100 mg 100 mg PO BID 21 days #42 tabs 11/08/22 tablet furosemide 20 mg tablet (Lasix) 20 mg PO DAILY 30 days #30 tabs 11/08/22 nicotine (polacrilex) 2 mg gum 2 mg buccal Q2H #100 ea 11/11/22 (Nicorette) azathioprine 50 mg tablet (Imuran) 50 mg PO DAILY 30 days #30 tabs 11/13/22 folic acid 1 mg tablet 1 mg PO DAILY 30 days #30 tabs 11/13/22 prednisone 10 mg tablet 40 mg (4 x 10 mg) PO DAILY 30 days 11/13/22 #120 tabs sulfamethoxazole 400 1 tab PO DAILY #30 tabs 11/13/22 mg-trimethoprim 80 mg tablet (Bactrim) Allergies Allergy/AdvReac Type Severity Reaction Status Date / Time No Known Allergies Allergy Verified 11/13/22 09:48 [No Known Allergies*] Review of Systems Review of Systems: Pertinent positives and negatives as stated in the [facility] Past Medical History Source: nursing notes reviewed Medical History Bacteremia Acute and chronic respiratory failure with hypercapnia CHITO (obstructive sleep apnea) Morbid obesity Cor pulmonale Chronic constipation Cellulitis COPD mixed type Leukocytosis Aspiration into airway Pulmonary congestion Vomiting COPD exacerbation Acute respiratory failure Status asthmaticus with COPD (chronic obstructive pulmonary disease) Hypertensive cardiovascular disease Type 2 diabetes mellitus Morbid obesity Rib fractures Pulmonary nodule Abnormal chest x-ray Congestive heart failure Opioid dependence Limb swelling Abdominal pain Diabetes mellitus Chronic respiratory failure COPD (chronic obstructive pulmonary disease) Poor dentition Tobacco abuse Asthma-COPD overlap syndrome Hyperlipidemia, unspecified Essential hypertension Type 2 diabetes mellitus with unspecified complications Chronic respiratory failure Hypogammaglobulinemia Surgical History H/O tubal ligation Family History Family History Father Diabetes Other Asthma Social History Social History Household Members: Children Household Members Other:: daughter Housing: Apartment Do you presently have visiting nurse or other home services: Yes Unable to assess alcohol history related to: Unknown Alcohol intake: never Patient Tobacco Use Status: Former Tobacco user Quit Date: February 2022 Tobacco use type: Cigarette Cigarettes Per Day: 1 Years Smoked: 35 e-Cigarette/Vaping Use: Currently Using Second Hand Smoke Exposure: No Substance Use Type: Opiates Advance Directives: Yes Advance Directives on File: Yes Advance Directives Date on File: 06/12/21 service: No Current occupational status: unemployed and disabled Physical Exam ED Vital Signs: Vital Signs - 24 hr 11/30/22 14:59 11/30/22 15:57 Temperature 98.5 F Pulse Rate 113 H 102 H Respiratory Rate 17 21 H Blood Pressure 99/57 L Pulse Oximetry 93 Oxygen Delivery Method Nasal Cannula BMI result Body Mass Index 36.8 VITAL SIGNS: Reviewed. GENERAL: Well developed, well nourished, in no acute distress. HEAD: Normocephalic/atraumatic EYES: PERRLA, EOMI EARS: Ext canals without abnormality, TMs non-bulging and non-erythematous NOSE: Nares patent bilateral OROPHARYNX: no oral lesions noted, posterior pharynx clear and non-erythematous without noted tonsillar enlargement/erythema/exudates NECK: Supple, no adenopathy LUNGS: Normal breath sounds. No adventitious sounds or accessory muscle use. SpO2<93> on baseline home oxygen CARDIOVASCULAR: Regular rate and rhythm without noted murmurs, no JVD or lower extremity edema. ABDOMEN: Soft, non-tender, non-distended with bowel sounds. MUSCULOSKELETAL: No tenderness, deformities, or effusions noted on gross inspection. EXTREMITIES: No cyanosis, clubbing or edema. SKIN: Inspection of the skin reveals no rashes NEUROLOGIC: Alert and oriented x 4. Strength and sensation to light touch were grossly intact x 4. Medications Administered Discontinued Medications Generic Name Dose Route Start Last Admin Trade Name Freq PRN Reason Stop Dose Admin Albuterol/Ipratropium 3 ml 11/30/22 15:54 11/30/22 15:57 Albuterol/Iprat 2.5/0.5mg 3 Ml Ampul.Neb INHALE 11/30/22 15:55 3 ml ONCE ONE Administration Medical Decision Making Medical Decision Making MDM Narrative: 52-year-old female with history and clinical presentation, DDX: Viral illness, pneumonia, UTI. Patient did receive a 3ml DuoNeb treatment. I reviewed viral testing which is negative for COVID-19 and influenza. Chest x-ray negative for any acute findings and otherwise my interpretation is in agreement with radiology's impression. Signed out to Dr Dozier - f/u UA, labs Differential Diagnosis Differential Diagnoses: The differential diagnosis associated with the presentation includes Please see the discussion above Admission/Observation Consideration of admission/observation: Escalation of care including admission/observation considered Please see the discussion above Lab Data Labs: Lab Results 11/30/22 Range/Units 15:09 COVID-19 (PAPO) Negative (Negative) COVID-19 Clin Com See Note Influenza Type A (ISMAEL) Negative (Negative) Influenza Type B (IMSAEL) Negative (Negative) Influenza A & B Note See Note Discharge Plan Discharge Clinical Impression: Viral syndrome Patient Disposition: Still a Patient Prescriptions: No Action Brovana 15 mcg/2 mL solution for nebulization 2 ml inhalation Q12H 30 Days Qty: 120 11RF Spiriva with HandiHaler 18 mcg capsule, w/inhalation device 1 cap inhalation DAILY Qty: 30 11RF budesonide 0.5 mg/2 mL suspension for nebulization 0.5 mg inhalation BID Qty: 120 11RF ipratropium-albuterol 0.5 mg-3 mg(2.5 mg base)/3 mL solution for nebulization 3 ml PO Q4H PRN (Reason: for wheezing) Qty: 540 6RF sodium chloride 7 % solution for nebulization 4 ml inhalation BID Qty: 240 11RF omeprazole 40 mg capsule,delayed release(DR/EC) 40 mg PO DAILY@0630 30 Days Qty: 30 6RF nicotine (polacrilex) [Nicorette] 2 mg gum 2 mg buccal Q2H Qty: 100 1RF diltiazem HCl [Tiadylt ER] 360 mg capsule,extended release 24 hr 360 mg PO DAILY rosuvastatin 5 mg tablet 5 mg PO BEDTIME roflumilast [Daliresp] 500 mcg tablet 500 mcg PO DAILY insulin lispro [Humalog U-100 Insulin] 100 unit/mL solution See Protocol subcut TIDAC Protocol: Insulin Correction Scale Less than or equal to 110 ---- Give (units): 0 111 to 150 Give (units): 0 151 to 200 Give (units): 2 201 to 250 Give (units): 4 251 to 300 Give (units): 6 301 to 350 Give (units): 8 Greater than 350 Give (units): 10 Call MD if Blood Glucose > : 350 metformin 500 mg tablet extended release 24 hr 1,000 mg PO BID hydralazine 25 mg tablet 25 mg PO DAILY insulin lispro 100 unit/mL solution 4 unit subcut TIDAC methadone 10 mg/mL Concentrate 50 mg PO DAILY lisinopril 40 mg tablet 40 mg PO DAILY Serevent Diskus 50 mcg/dose Blister With Device 1 inh inhalation RBID 30 Days Qty: 60 2RF simethicone [Gas Relief (simethicone)] 80 mg Tablet,Chewable 80 mg PO QIDWMHS PRN (Reason: Abdominal Distention) Qty: 30 0RF lamotrigine 150 mg tablet 150 mg PO BID alendronate 70 mg tablet 70 mg PO QWEEK lidocaine 5 % adhesive patch,medicated 1 patch topical DAILY Rx Instructions: APPLY FOR 12 HOURS THEN REMOVE FOR 12 HOURS bupropion HCl 75 mg tablet 75 mg PO DAILY cholecalciferol (vitamin D3) 1,250 mcg (50,000 unit) capsule 1,250 mcg PO 2XW calcitonin (salmon) 200 unit/actuation spray,non-aerosol 1 spray intranasal DAILY Rx Instructions: one nostril every day, alternate sides. insulin glargine [Lantus U-100 Insulin] 100 unit/mL solution 45 unit subcut BEDTIME gabapentin 300 mg capsule 300 mg PO DAILY docusate sodium 100 mg capsule 100 mg PO BID PRN (Reason: constipation) zolpidem 5 mg tablet 5 mg PO BEDTIME PRN (Reason: Sleep) polyethylene glycol 3350 [Miralax] 17 gram/dose powder 17 g PO DAILY PRN (Reason: constipation) Qty: 238 0RF prednisone 20 mg tablet 40 mg PO DAILY Qty: 10 0RF clonazepam 1 mg tablet 1 mg PO BID PRN (Reason: Anxiety) ibuprofen 600 mg tablet 600 mg PO Q8H PRN (Reason: Pain) montelukast 10 mg tablet 10 mg PO BEDTIME albuterol sulfate [ProAir HFA] 90 mcg/actuation HFA aerosol inhaler 2 puff inhalation Q4H PRN (Reason: Shortness Of Breath Or Wheezing) loratadine [Claritin] 10 mg tablet 10 mg PO DAILY theophylline 450 mg tablet extended release 12 hr 450 mg PO Q12H 30 Days Qty: 60 6RF azathioprine [Imuran] 50 mg tablet 50 mg PO DAILY 30 Days Qty: 30 6RF prednisone 10 mg tablet 40 mg PO DAILY 30 Days Qty: 120 2RF folic acid 1 mg tablet 1 mg PO DAILY 30 Days Qty: 30 6RF sulfamethoxazole-trimethoprim [Bactrim] 400-80 mg tablet 1 tab PO DAILY Qty: 30 4RF amoxicillin-pot clavulanate 875-125 mg tablet 1 tab PO Q12H Qty: 20 0RF prednisone 10 mg tablet 10 mg PO DIRECTED Qty: 54 0RF Rx Instructions: Take 6 tabs daily x 3 days, then 5 tabs x 3 days, then 4 tabs x 3 days, then 3 tabs x 3 days, then back to daily dose of 20 mg (DME) nebulizers Misc See Rx Instructions .ROUTE Rx Instructions: As directed furosemide [Lasix] 20 mg tablet 20 mg PO DAILY 30 Days Qty: 30 2RF doxycycline monohydrate 100 mg tablet 100 mg PO BID 21 Days Qty: 42 0RF
[2022-11-30 16:31] LABS: MANUAL DIFF FLAG NO
[2022-11-30 16:32] LABS: Basophils Percent Auto 0.1 % (0-2); Hematocrit 38.8 % (37.0-47.0); Hemoglobin 11.9 g/dl (12.0-16.0); Imm Gran Pct Auto 0.6 % (0.0-0.4); Lymphocytes Absolute Auto 0.4 X10*3/uL (1.2-4.9); Lymphocytes Percent Auto 2.6 % (20-40); Mean Corpuscular HGB Conc 30.7 g/dl (31.0-35.0); Mean Corpuscular Hemoglobin 28.7 pg (27.0-33.0); Mean Corpuscular Volume 93.5 fL (80.0-98.0); Mean Platelet Volume 8.7 fL (9.4-12.3); Monocytes Absolute Auto 0.6 X10*3/uL (0.1-1.2); Monocytes Percent Auto 3.3 % (2-11); Neutrophils Absolute Auto 15.8 x10*3/uL (2.0-8.3); Neutrophils Percent Auto 93.4 % (45-73); Platelet Count 338 X10*3/uL (160-400); Red Blood Count 4.15 X10*6/uL (4.20-5.50); Red Cell Distribution Width 13.6 % (11.0-16.0); SCAN SMEAR FLAG 1; White Blood Count 16.9 X10*3/uL (4.8-10.8)
[2022-11-30 16:36] LABS: Venous Blood Gas Refer to POC result
[2022-11-30 16:38] LABS: VBG Base Excess 21.2 mmol/L; VBG HCO3 50 mmol/L (22-26); VBG pCO2 79 mmHg; VBG pH 7.41 (7.32-7.43); VBG pO2 92 mmHg
[2022-11-30 16:45] LABS: Anion Gap 17 (12-20); Blood Urea Nitrogen 18 mg/dL (9-16); Carbon Dioxide 33 mmol/L (22-29); Chloride 96 mmol/L (96-108); Creatinine Clr Calc Pharmacy 103.9; Estimated Glomerular Filt Rate > 60; Glucose Random 166 mg/dL (60-115); Potassium 4.4 mmol/L (3.3-5.1); Sodium 142 mmol/L (135-145)
[2022-11-30 17:12] VITALS: BP 115/70; PULSE 115; RESP 20; TEMP 36.8; O2SAT 92
--- NOTE | 2022-11-30 19:29 | ED.GENADULT ---
HPI - General Adult General Chief complaint: General Medical Stated complaint: sob, diff breathing, headache, per ems Time Seen by Provider: 11/30/22 15:21 Source: patient Mode of arrival: EMS Related Data Home Medications Medication Instructions Recorded Confirmed albuterol sulfate 90 mcg/actuation 2 puff inhalation Q4H PRN 12/30/19 10/20/22 aerosol inhaler (ProAir HFA) Shortness Of Breath Or Wheezing loratadine 10 mg tablet (Claritin) 10 mg PO DAILY 12/30/19 10/20/22 montelukast 10 mg tablet 10 mg PO BEDTIME 12/30/19 10/20/22 diltiazem HCl 360 mg capsule,24 360 mg PO DAILY 11/16/20 10/20/22 hr,extended release (Tiadylt ER) roflumilast 500 mcg tablet 500 mcg PO DAILY 11/16/20 10/20/22 (Daliresp) rosuvastatin 5 mg tablet 5 mg PO BEDTIME 11/16/20 10/20/22 insulin lispro 100 unit/mL See Protocol subcut TIDAC 12/14/20 10/20/22 subcutaneous solution (Humalog U-100 Insulin) metformin 500 mg tablet,extended 1,000 mg PO BID 05/18/21 10/20/22 release 24 hr methadone 10 mg/mL oral concentrate 50 mg PO DAILY 06/06/21 10/20/22 lisinopril 40 mg tablet 40 mg PO DAILY 07/30/21 10/20/22 hydralazine 25 mg tablet 25 mg PO DAILY 11/02/21 10/20/22 insulin lispro 100 unit/mL 4 unit subcut TIDAC 11/02/21 10/20/22 subcutaneous solution clonazepam 1 mg tablet 1 mg PO BID PRN Anxiety 06/28/22 10/20/22 ibuprofen 600 mg tablet 600 mg PO Q8H PRN Pain 06/28/22 10/20/22 alendronate 70 mg tablet 70 mg PO QWEEK 07/29/22 10/20/22 lamotrigine 150 mg tablet 150 mg PO BID 07/29/22 10/20/22 lidocaine 5 % topical patch 1 patch topical DAILY 07/29/22 10/20/22 bupropion HCl 75 mg tablet 75 mg PO DAILY 09/30/22 10/20/22 calcitonin (salmon) 200 1 spray intranasal DAILY 09/30/22 10/20/22 unit/actuation nasal spray cholecalciferol (vitamin D3) 1,250 1,250 mcg PO 2XW 09/30/22 10/20/22 mcg (50,000 unit) capsule gabapentin 300 mg capsule 300 mg PO DAILY 09/30/22 10/20/22 insulin glargine 100 unit/mL 45 unit subcut BEDTIME 09/30/22 10/20/22 subcutaneous solution (Lantus U-100 Insulin) docusate sodium 100 mg capsule 100 mg PO BID PRN constipation 10/20/22 10/20/22 zolpidem 5 mg tablet 5 mg PO BEDTIME PRN Sleep 10/20/22 10/20/22 nebulizers 11/08/22 Previous Rx's Medication Instructions Recorded salmeterol 50 mcg/dose blister 1 inh inhalation RBID 30 days #60 01/05/22 powder for inhalation (Serevent ea Diskus) simethicone 80 mg chewable tablet 80 mg PO QIDWMHS PRN Abdominal 01/05/22 (Gas Relief (simethicone)) Distention #30 tabs theophylline 450 mg 450 mg PO Q12H 30 days #60 tabs 05/08/22 tablet,extended release,12 hr arformoterol 15 mcg/2 mL solution 2 ml inhalation Q12H 30 days #120 06/07/22 for nebulization (Brovana) mL tiotropium bromide 18 mcg capsule 1 cap inhalation DAILY #30 ea 07/09/22 with inhalation device (Spiriva with HandiHaler) budesonide 0.5 mg/2 mL suspension 0.5 mg (2 mL) inhalation BID #120 08/15/22 for nebulization mL ipratropium 0.5 mg-albuterol 3 mg 3 ml PO Q4H PRN for wheezing #540 09/02/22 (2.5 mg base)/3 mL nebulization mL soln sodium chloride 7 % for 4 ml inhalation BID #240 mL 09/20/22 nebulization omeprazole 40 mg capsule,delayed 40 mg PO DAILY@0630 30 days #30 09/24/22 release caps polyethylene glycol 3350 17 17 g PO DAILY PRN constipation 10/22/22 gram/dose oral powder (Miralax) #238 grams prednisone 20 mg tablet 40 mg (2 x 20 mg) PO DAILY #10 tabs 10/22/22 amoxicillin 875 mg-potassium 1 tab PO Q12H #20 tabs 10/29/22 clavulanate 125 mg tablet prednisone 10 mg tablet 10 mg PO DIRECTED #54 tabs 10/29/22 doxycycline monohydrate 100 mg 100 mg PO BID 21 days #42 tabs 11/08/22 tablet furosemide 20 mg tablet (Lasix) 20 mg PO DAILY 30 days #30 tabs 11/08/22 nicotine (polacrilex) 2 mg gum 2 mg buccal Q2H #100 ea 11/11/22 (Nicorette) azathioprine 50 mg tablet (Imuran) 50 mg PO DAILY 30 days #30 tabs 11/13/22 folic acid 1 mg tablet 1 mg PO DAILY 30 days #30 tabs 11/13/22 prednisone 10 mg tablet 40 mg (4 x 10 mg) PO DAILY 30 days 11/13/22 #120 tabs sulfamethoxazole 400 1 tab PO DAILY #30 tabs 11/13/22 mg-trimethoprim 80 mg tablet (Bactrim) prednisone 20 mg tablet 40 mg (2 x 20 mg) PO DAILY #10 tabs 11/30/22 Allergies Allergy/AdvReac Type Severity Reaction Status Date / Time No Known Allergies Allergy Verified 11/13/22 09:48 [No Known Allergies*] [facility] Past Medical History Medical History Bacteremia Acute and chronic respiratory failure with hypercapnia CHITO (obstructive sleep apnea) Morbid obesity Cor pulmonale Chronic constipation Cellulitis COPD mixed type Leukocytosis Aspiration into airway Pulmonary congestion Vomiting COPD exacerbation Acute respiratory failure Status asthmaticus with COPD (chronic obstructive pulmonary disease) Hypertensive cardiovascular disease Type 2 diabetes mellitus Morbid obesity Rib fractures Pulmonary nodule Abnormal chest x-ray Congestive heart failure Opioid dependence Limb swelling Abdominal pain Diabetes mellitus Chronic respiratory failure COPD (chronic obstructive pulmonary disease) Poor dentition Tobacco abuse Asthma-COPD overlap syndrome Hyperlipidemia, unspecified Essential hypertension Type 2 diabetes mellitus with unspecified complications Chronic respiratory failure Hypogammaglobulinemia Surgical History H/O tubal ligation Family History Family History Father Diabetes Other Asthma Social History Social History Household Members: Children Household Members Other:: daughter Housing: Apartment Do you presently have visiting nurse or other home services: Yes Unable to assess alcohol history related to: Unknown Alcohol intake: never Patient Tobacco Use Status: Former Tobacco user Quit Date: February 2022 Tobacco use type: Cigarette Cigarettes Per Day: 1 Years Smoked: 35 e-Cigarette/Vaping Use: Currently Using Second Hand Smoke Exposure: No Substance Use Type: Opiates Advance Directives: Yes Advance Directives on File: Yes Advance Directives Date on File: 06/12/21 service: No Current occupational status: unemployed and disabled Physical Exam ED Vital Signs: Vital Signs - 24 hr 11/30/22 14:59 11/30/22 15:57 11/30/22 17:12 Temperature 98.5 F 98.3 F Pulse Rate 113 H 102 H 115 H Respiratory Rate 17 21 H 20 Blood Pressure 99/57 L 115/70 Pulse Oximetry 93 92 Oxygen Delivery Method Nasal Cannula Room Air BMI result Body Mass Index 36.8 Medications Administered Discontinued Medications Generic Name Dose Route Start Last Admin Trade Name Freq PRN Reason Stop Dose Admin Albuterol/Ipratropium 3 ml 11/30/22 15:54 11/30/22 15:57 Albuterol/Iprat 2.5/0.5mg 3 Ml Ampul.Neb INHALE 11/30/22 15:55 3 ml ONCE ONE Administration Medical Decision Making Medical Decision Making [facility] Narrative: I took over patient's case at the change of shift from Dr. Hernandez. Patient is on recheck lungs are clear. No distress. She feels back to baseline. Will discharge patient home. Patient's white count is elevated which is chronic. Will give patient a burst of steroids. She has a history of severe asthma in the past. Her labs were reviewed. I review her x-ray which showed no acute pneumonia. Review radiology is reading. In stable condition Lab Data 11/30/22 16:23 11/30/22 16:23 Labs: Lab Results 11/30/22 11/30/22 11/30/22 Range/Units 15:09 16: 16:32 WBC 16.9 H (4.8-10.8) X10*3/uL RBC 4.15 L (4.20-5.50) X10*6/uL Hgb 11.9 L (12.0-16.0) g/dl Hct 38.8 (37.0-47.0) % MCV 93.5 (80.0-98.0) fL MCH 28.7 (27.0-33.0) pg MCHC 30.7 L (31.0-35.0) g/dl RDW 13.6 (11.0-16.0) % Plt Count 338 (160-400) X10*3/uL MPV 8.7 L (9.4-12.3) fL Immature Gran % (Auto) 0.6 H (0.0-0.4) % Neut % (Auto) 93.4 H (45-73) % Lymph % (Auto) 2.6 L (20-40) % [place] % (Auto) 3.3 (2-11) % Eos % (Auto) 0.0 (0-4) % Baso % (Auto) 0.1 (0-2) % Lymph # (Auto) 0.4 L (1.2-4.9) X10*3/uL [place] # (Auto) 0.6 (0.1-1.2) X10*3/uL Eos # (Auto) 0.0 (0.0-0.4) X10*3/uL Baso # (Auto) 0.0 (0.0-0.2) X10*3/uL Abs Immat Gran (auto) 0.10 H (0.00-0.03) X10*3/uL Absolute Neuts (auto) 15.8 H (2.0-8.3) x10*3/uL Absolute Nucleated RBC 0.000 (0.0-0.012) X10*3/uL Nucleated RBC % (auto) 0.0 (0.0-0.2) /100WBC VBG pH 7.41 (7.32-7.43) VBG pCO2 79 mmHg VBG pO2 92 mmHg VBG HCO3 50 H (22-26) mmol/L VBG O2 Saturation 98.0 % VBG Base Excess 21.2 mmol/L Sodium 142 (135-145) mmol/L Potassium 4.4 D (3.3-5.1) mmol/L Chloride 96 (96-108) mmol/L Carbon Dioxide 33 H (22-29) mmol/L Anion Gap 17 (12-20) BUN 18 H (9-16) mg/dL Creatinine 0.64 (0.5-1.4) mg/dL Estim Creat Clear Calc 103.9 Estimated GFR > 60 Random Glucose 166 H (60-115) mg/dL Calcium 10.0 (8.4-10.2) mg/dL COVID-19 (PAPO) Negative (Negative) COVID-19 Clin Com See Note Influenza Type A (ISMAEL) Negative (Negative) Influenza Type B (ISMAEL) Negative (Negative) Influenza A & B Note See Note Discharge Plan Discharge Clinical Impression: Viral syndrome Patient Disposition: Home, Self-Care Instructions: Viral Syndrome (ED) Prescriptions: New prednisone 20 mg tablet 40 mg PO DAILY Qty: 10 0RF No Action Brovana 15 mcg/2 mL solution for nebulization 2 ml inhalation Q12H 30 Days Qty: 120 11RF Spiriva with HandiHaler 18 mcg capsule, w/inhalation device 1 cap inhalation DAILY Qty: 30 11RF budesonide 0.5 mg/2 mL suspension for nebulization 0.5 mg inhalation BID Qty: 120 11RF ipratropium-albuterol 0.5 mg-3 mg(2.5 mg base)/3 mL solution for nebulization 3 ml PO Q4H PRN (Reason: for wheezing) Qty: 540 6RF sodium chloride 7 % solution for nebulization 4 ml inhalation BID Qty: 240 11RF omeprazole 40 mg capsule,delayed release(DR/EC) 40 mg PO DAILY@0630 30 Days Qty: 30 6RF nicotine (polacrilex) [Nicorette] 2 mg gum 2 mg buccal Q2H Qty: 100 1RF diltiazem HCl [Tiadylt ER] 360 mg capsule,extended release 24 hr 360 mg PO DAILY rosuvastatin 5 mg tablet 5 mg PO BEDTIME roflumilast [Daliresp] 500 mcg tablet 500 mcg PO DAILY insulin lispro [Humalog U-100 Insulin] 100 unit/mL solution See Protocol subcut TIDAC Protocol: Insulin Correction Scale Less than or equal to 110 ---- Give (units): 0 111 to 150 Give (units): 0 151 to 200 Give (units): 2 201 to 250 Give (units): 4 251 to 300 Give (units): 6 301 to 350 Give (units): 8 Greater than 350 Give (units): 10 Call MD if Blood Glucose > : 350 metformin 500 mg tablet extended release 24 hr 1,000 mg PO BID hydralazine 25 mg tablet 25 mg PO DAILY insulin lispro 100 unit/mL solution 4 unit subcut TIDAC methadone 10 mg/mL Concentrate 50 mg PO DAILY lisinopril 40 mg tablet 40 mg PO DAILY Serevent Diskus 50 mcg/dose Blister With Device 1 inh inhalation RBID 30 Days Qty: 60 2RF simethicone [Gas Relief (simethicone)] 80 mg Tablet,Chewable 80 mg PO QIDWMHS PRN (Reason: Abdominal Distention) Qty: 30 0RF lamotrigine 150 mg tablet 150 mg PO BID alendronate 70 mg tablet 70 mg PO QWEEK lidocaine 5 % adhesive patch,medicated 1 patch topical DAILY Rx Instructions: APPLY FOR 12 HOURS THEN REMOVE FOR 12 HOURS bupropion HCl 75 mg tablet 75 mg PO DAILY cholecalciferol (vitamin D3) 1,250 mcg (50,000 unit) capsule 1,250 mcg PO 2XW calcitonin (salmon) 200 unit/actuation spray,non-aerosol 1 spray intranasal DAILY Rx Instructions: one nostril every day, alternate sides. insulin glargine [Lantus U-100 Insulin] 100 unit/mL solution 45 unit subcut BEDTIME gabapentin 300 mg capsule 300 mg PO DAILY docusate sodium 100 mg capsule 100 mg PO BID PRN (Reason: constipation) zolpidem 5 mg tablet 5 mg PO BEDTIME PRN (Reason: Sleep) polyethylene glycol 3350 [Miralax] 17 gram/dose powder 17 g PO DAILY PRN (Reason: constipation) Qty: 238 0RF prednisone 20 mg tablet 40 mg PO DAILY Qty: 10 0RF clonazepam 1 mg tablet 1 mg PO BID PRN (Reason: Anxiety) ibuprofen 600 mg tablet 600 mg PO Q8H PRN (Reason: Pain) montelukast 10 mg tablet 10 mg PO BEDTIME albuterol sulfate [ProAir HFA] 90 mcg/actuation HFA aerosol inhaler 2 puff inhalation Q4H PRN (Reason: Shortness Of Breath Or Wheezing) loratadine [Claritin] 10 mg tablet 10 mg PO DAILY theophylline 450 mg tablet extended release 12 hr 450 mg PO Q12H 30 Days Qty: 60 6RF azathioprine [Imuran] 50 mg tablet 50 mg PO DAILY 30 Days Qty: 30 6RF prednisone 10 mg tablet 40 mg PO DAILY 30 Days Qty: 120 2RF folic acid 1 mg tablet 1 mg PO DAILY 30 Days Qty: 30 6RF sulfamethoxazole-trimethoprim [Bactrim] 400-80 mg tablet 1 tab PO DAILY Qty: 30 4RF amoxicillin-pot clavulanate 875-125 mg tablet 1 tab PO Q12H Qty: 20 0RF prednisone 10 mg tablet 10 mg PO DIRECTED Qty: 54 0RF Rx Instructions: Take 6 tabs daily x 3 days, then 5 tabs x 3 days, then 4 tabs x 3 days, then 3 tabs x 3 days, then back to daily dose of 20 mg (DME) nebulizers Misc See Rx Instructions .ROUTE Rx Instructions: As directed furosemide [Lasix] 20 mg tablet 20 mg PO DAILY 30 Days Qty: 30 2RF doxycycline monohydrate 100 mg tablet 100 mg PO BID 21 Days Qty: 42 0RF Referrals: [facility] [Primary Care Provider] - 12/03/22
== END 2022-11-30 19:57 | disposition home or self-care (01) ==
PROVIDERS: Student in an Organized Health Care Education/Training Program; Emergency Provider Emergency Medicine Emergency Medical Services
DX: B34.9 Viral infection, unspecified (principal); R06.02 Shortness of breath; R51.9 Headache, unspecified; E11.9 Type 2 diabetes mellitus without complications; J44.9 Chronic obstructive pulmonary disease, unspecified; I50.9 Heart failure, unspecified; I11.9 Hypertensive heart disease without heart failure; Z11.52 Encounter for screening for COVID-19
CPT/HCPCS: 36415; 71045; 80048; 82803; 85025; 87502; 87635; 90471; 94640; 99284

== ENCOUNTER 2022-12-07 00:26 | Emergency (ER) | payer MEDICAID, SELFPAY ==
--- NOTE | ~2022-12-07 | XR_ITS ---
EXAMINATION: XR CHEST CLINICAL INFORMATION: Shortness of breath, wheezing COMPARISON: 11/30/2022 TECHNIQUE: Frontal view of the chest was obtained. FINDINGS: Lung volumes are symmetric. No focal consolidation is seen. Bronchial wall thickening is suspected, which may be chronic. No evidence of pneumothorax or significant pleural effusion. The cardiomediastinal silhouette is stable. Chronic appearing bilateral rib deformities again noted. XR/XR chest 1V IMPRESSION: No focal consolidation. Bronchial wall thickening is suspected, which may be chronic.
[2022-12-07 00:47] VITALS: BP 170/95; PULSE 102; O2SAT 98
[2022-12-07 01:02] VITALS: BP 117/53; PULSE 100; RESP 24; TEMP 36.8; O2SAT 96; BMI 38.2
[2022-12-07 01:20] LABS: MANUAL DIFF FLAG NO
[2022-12-07 01:21] LABS: Basophils Percent Auto 0.2 % (0-2); Eosinophils Absolute Auto 0.1 X10*3/uL (0.0-0.4); Eosinophils Percent Auto 0.4 % (0-4); Hematocrit 36.9 % (37.0-47.0); Hemoglobin 11.5 g/dl (12.0-16.0); Imm Gran Abs Auto 0.12 X10*3/uL (0.00-0.03); Imm Gran Pct Auto 0.8 % (0.0-0.4); Lymphocytes Absolute Auto 1.2 X10*3/uL (1.2-4.9); Lymphocytes Percent Auto 8.1 % (20-40); Mean Corpuscular HGB Conc 31.2 g/dl (31.0-35.0); Mean Corpuscular Hemoglobin 29.7 pg (27.0-33.0); Mean Corpuscular Volume 95.3 fL (80.0-98.0); Mean Platelet Volume 8.7 fL (9.4-12.3); Monocytes Absolute Auto 0.8 X10*3/uL (0.1-1.2); Monocytes Percent Auto 5.7 % (2-11); Neutrophils Absolute Auto 12.3 x10*3/uL (2.0-8.3); Neutrophils Percent Auto 84.8 % (45-73); Platelet Count 268 X10*3/uL (160-400); Red Blood Count 3.87 X10*6/uL (4.20-5.50); Red Cell Distribution Width 14.1 % (11.0-16.0); White Blood Count 14.5 X10*3/uL (4.8-10.8)
[2022-12-07 01:35] LABS: Alanine Aminotransferase 12 U/L (0-31); Albumin Level 3.9 g/dL (3.5-5.0); Alkaline Phosphatase 84 U/L (39-117); Anion Gap 15 (12-20); Aspartate Amino Transferase 12 U/L (5-31); Bilirubin Total 0.1 mg/dL (0.0-1.0); Blood Urea Nitrogen 16 mg/dL (9-16); Calcium 9.4 mg/dL (8.4-10.2); Carbon Dioxide 33 mmol/L (22-29); Chloride 99 mmol/L (96-108); Creatinine Clr Calc Pharmacy 102.9; Estimated Glomerular Filt Rate > 60; Glucose Random 89 mg/dL (60-115); Potassium 3.4 mmol/L (3.3-5.1); Sodium 144 mmol/L (135-145); Total Protein 6.4 g/dL (6.5-8.0)
[2022-12-07] MEDS: Albuterol Sulfate 2.5 MG, Albuterol/Iprat 2.5/0.5MG 3 ML 3 ML INHALE (02:11)
[2022-12-07 02:12] VITALS: PULSE 98; PULSE 99; RESP 15; RESP 17; O2SAT 95; O2SAT 96
--- NOTE | 2022-12-07 03:05 | ED.SOB ---
HPI - SOB/Dyspnea General Chief Complaint: Dyspnea Stated Complaint: SOB Time Seen by Provider: 12/07/22 01:48 Source: patient Mode of arrival: EMS Limitations: no limitations History of Present Illness HPI Narrative: Patient has history of asthma/COPD on home oxygen frequent ED visits with seen here few days ago comes here for increased shortness of breath for last 2 days saturating 96% on 2 L which she is on at home received DuoNeb treatment by the EMS no fever does have dry cough Related Data Home Medications Medication Instructions Recorded Confirmed albuterol sulfate 90 mcg/actuation 2 puff inhalation Q4H PRN 12/30/19 10/20/22 aerosol inhaler (ProAir HFA) Shortness Of Breath Or Wheezing loratadine 10 mg tablet (Claritin) 10 mg PO DAILY 12/30/19 10/20/22 montelukast 10 mg tablet 10 mg PO BEDTIME 12/30/19 10/20/22 diltiazem HCl 360 mg capsule,24 360 mg PO DAILY 11/16/20 10/20/22 hr,extended release (Tiadylt ER) roflumilast 500 mcg tablet 500 mcg PO DAILY 11/16/20 10/20/22 (Daliresp) rosuvastatin 5 mg tablet 5 mg PO BEDTIME 11/16/20 10/20/22 insulin lispro 100 unit/mL See Protocol subcut TIDAC 12/14/20 10/20/22 subcutaneous solution (Humalog U-100 Insulin) metformin 500 mg tablet,extended 1,000 mg PO BID 05/18/21 10/20/22 release 24 hr methadone 10 mg/mL oral concentrate 50 mg PO DAILY 06/06/21 10/20/22 lisinopril 40 mg tablet 40 mg PO DAILY 07/30/21 10/20/22 hydralazine 25 mg tablet 25 mg PO DAILY 11/02/21 10/20/22 insulin lispro 100 unit/mL 4 unit subcut TIDAC 11/02/21 10/20/22 subcutaneous solution clonazepam 1 mg tablet 1 mg PO BID PRN Anxiety 06/28/22 10/20/22 ibuprofen 600 mg tablet 600 mg PO Q8H PRN Pain 06/28/22 10/20/22 alendronate 70 mg tablet 70 mg PO QWEEK 07/29/22 10/20/22 lamotrigine 150 mg tablet 150 mg PO BID 07/29/22 10/20/22 lidocaine 5 % topical patch 1 patch topical DAILY 07/29/22 10/20/22 bupropion HCl 75 mg tablet 75 mg PO DAILY 09/30/22 10/20/22 calcitonin (salmon) 200 1 spray intranasal DAILY 09/30/22 10/20/22 unit/actuation nasal spray cholecalciferol (vitamin D3) 1,250 1,250 mcg PO 2XW 09/30/22 10/20/22 mcg (50,000 unit) capsule gabapentin 300 mg capsule 300 mg PO DAILY 09/30/22 10/20/22 insulin glargine 100 unit/mL 45 unit subcut BEDTIME 09/30/22 10/20/22 subcutaneous solution (Lantus U-100 Insulin) docusate sodium 100 mg capsule 100 mg PO BID PRN constipation 10/20/22 10/20/22 zolpidem 5 mg tablet 5 mg PO BEDTIME PRN Sleep 10/20/22 10/20/22 nebulizers 11/08/22 Previous Rx's Medication Instructions Recorded salmeterol 50 mcg/dose blister 1 inh inhalation RBID 30 days #60 01/05/22 powder for inhalation (Serevent ea Diskus) simethicone 80 mg chewable tablet 80 mg PO QIDWMHS PRN Abdominal 01/05/22 (Gas Relief (simethicone)) Distention #30 tabs theophylline 450 mg 450 mg PO Q12H 30 days #60 tabs 05/08/22 tablet,extended release,12 hr arformoterol 15 mcg/2 mL solution 2 ml inhalation Q12H 30 days #120 06/07/22 for nebulization (Brovana) mL tiotropium bromide 18 mcg capsule 1 cap inhalation DAILY #30 ea 07/09/22 with inhalation device (Spiriva with HandiHaler) budesonide 0.5 mg/2 mL suspension 0.5 mg (2 mL) inhalation BID #120 08/15/22 for nebulization mL ipratropium 0.5 mg-albuterol 3 mg 3 ml PO Q4H PRN for wheezing #540 09/02/22 (2.5 mg base)/3 mL nebulization mL soln sodium chloride 7 % for 4 ml inhalation BID #240 mL 09/20/22 nebulization omeprazole 40 mg capsule,delayed 40 mg PO DAILY@0630 30 days #30 09/24/22 release caps polyethylene glycol 3350 17 17 g PO DAILY PRN constipation 10/22/22 gram/dose oral powder (Miralax) #238 grams prednisone 20 mg tablet 40 mg (2 x 20 mg) PO DAILY #10 tabs 10/22/22 amoxicillin 875 mg-potassium 1 tab PO Q12H #20 tabs 10/29/22 clavulanate 125 mg tablet prednisone 10 mg tablet 10 mg PO DIRECTED #54 tabs 10/29/22 doxycycline monohydrate 100 mg 100 mg PO BID 21 days #42 tabs 11/08/22 tablet furosemide 20 mg tablet (Lasix) 20 mg PO DAILY 30 days #30 tabs 11/08/22 nicotine (polacrilex) 2 mg gum 2 mg buccal Q2H #100 ea 11/11/22 (Nicorette) azathioprine 50 mg tablet (Imuran) 50 mg PO DAILY 30 days #30 tabs 11/13/22 folic acid 1 mg tablet 1 mg PO DAILY 30 days #30 tabs 11/13/22 prednisone 10 mg tablet 40 mg (4 x 10 mg) PO DAILY 30 days 11/13/22 #120 tabs sulfamethoxazole 400 1 tab PO DAILY #30 tabs 11/13/22 mg-trimethoprim 80 mg tablet (Bactrim) prednisone 20 mg tablet 40 mg (2 x 20 mg) PO DAILY #10 tabs 11/30/22 Allergies Allergy/AdvReac Type Severity Reaction Status Date / Time No Known Allergies Allergy Verified 11/13/22 09:48 [No Known Allergies*] [facility] Past Medical History Medical History Bacteremia Acute and chronic respiratory failure with hypercapnia CHITO (obstructive sleep apnea) Morbid obesity Cor pulmonale Chronic constipation Cellulitis COPD mixed type Leukocytosis Aspiration into airway Pulmonary congestion Vomiting COPD exacerbation Acute respiratory failure Status asthmaticus with COPD (chronic obstructive pulmonary disease) Hypertensive cardiovascular disease Type 2 diabetes mellitus Morbid obesity Rib fractures Pulmonary nodule Abnormal chest x-ray Congestive heart failure Opioid dependence Limb swelling Abdominal pain Diabetes mellitus Chronic respiratory failure COPD (chronic obstructive pulmonary disease) Poor dentition Tobacco abuse Asthma-COPD overlap syndrome Hyperlipidemia, unspecified Essential hypertension Type 2 diabetes mellitus with unspecified complications Chronic respiratory failure Hypogammaglobulinemia Surgical History H/O tubal ligation Family History Family History Father Diabetes Other Asthma Social History Social History Household Members: Children Household Members Other:: daughter Housing: Apartment Do you presently have visiting nurse or other home services: Yes Unable to assess alcohol history related to: Unknown Alcohol intake: never Patient Tobacco Use Status: Former Tobacco user Quit Date: February 2022 Tobacco use type: Cigarette Cigarettes Per Day: 1 Years Smoked: 35 e-Cigarette/Vaping Use: Currently Using Second Hand Smoke Exposure: No Substance Use Type: Opiates Advance Directives: Yes Advance Directives on File: Yes Advance Directives Date on File: 06/12/21 service: No Current occupational status: unemployed and disabled Physical Exam Vital Signs: Vital Signs: Last Vital Signs Temp 98.2 F 12/07/22 01:02 Pulse 98 12/07/22 02:12 Resp 18 12/07/22 04:49 BP 117/53 L 12/07/22 01:02 Pulse Ox 96 12/07/22 01:02 O2 Del Method Nasal Cannula 12/07/22 01:02 Oxygen Flow Rate 2 12/07/22 01:02 BMI result Body Mass Index 38.2 Appearance: Alert. Oriented X3. No acute distress. Eyes: PERRLA, No Nystagmus ENT: Pharynx normal. Oral Mucosa moist Neck: Normal inspection. Neck supple. CVS: Normal heart rate and rhythm. Pulses normal. Respiratory: By respiratory distress. Equal air entry bilateral, bilateral wheezing no crackles Abdomen: Soft and nontender. Bowel sounds are present, no mass palpable, no CVA tenderness Skin: Skin warm and dry. Normal skin color. Normal skin turgor. Extremities: No lower extremity edema. No calf tenderness Neuro: Oriented X 3. Medications Administered Discontinued Medications Generic Name Dose Route Start Last Admin Trade Name Freq PRN Reason Stop Dose Admin Albuterol Sulfate 2.5 mg/ 0 mg 12/07/22 02:07 12/07/22 02:11 Albuterol/Ipratropium 3 ml INHALE 12/07/22 02:08 5 dose ONCE ONE Administration Medical Decision Making Medical Decision Making [facility] Narrative: The patient's COPD/asthma overlap syndrome want prednisone improved after nebulizing treatment will discharge patient home labs and chest x-ray negative Differential Diagnosis Differential Diagnoses: The differential diagnosis associated with the presentation includes COPD/asthma/pneumonia Lab Data [facility] Lab Attestation statement: I reviewed the patient's lab results. 12/07/22 01:15 12/07/22 01:15 Labs: Lab Results 12/07/22 Range/Units 01:15 WBC 14.5 H (4.8-10.8) X10*3/uL RBC 3.87 L (4.20-5.50) X10*6/uL Hgb 11.5 L (12.0-16.0) g/dl Hct 36.9 L (37.0-47.0) % MCV 95.3 (80.0-98.0) fL MCH 29.7 (27.0-33.0) pg MCHC 31.2 (31.0-35.0) g/dl RDW 14.1 (11.0-16.0) % Plt Count 268 (160-400) X10*3/uL MPV 8.7 L (9.4-12.3) fL Immature Gran % (Auto) 0.8 H (0.0-0.4) % Neut % (Auto) 84.8 H (45-73) % Lymph % (Auto) 8.1 L (20-40) % [place] % (Auto) 5.7 (2-11) % Eos % (Auto) 0.4 (0-4) % Baso % (Auto) 0.2 (0-2) % Lymph # (Auto) 1.2 (1.2-4.9) X10*3/uL [place] # (Auto) 0.8 (0.1-1.2) X10*3/uL Eos # (Auto) 0.1 (0.0-0.4) X10*3/uL Baso # (Auto) 0.0 (0.0-0.2) X10*3/uL Abs Immat Gran (auto) 0.12 H (0.00-0.03) X10*3/uL Absolute Neuts (auto) 12.3 H (2.0-8.3) x10*3/uL Absolute Nucleated RBC 0.000 (0.0-0.012) X10*3/uL Nucleated RBC % (auto) 0.0 (0.0-0.2) /100WBC Sodium 144 (135-145) mmol/L Potassium 3.4 D (3.3-5.1) mmol/L Chloride 99 (96-108) mmol/L Carbon Dioxide 33 H (22-29) mmol/L Anion Gap 15 (12-20) BUN 16 (9-16) mg/dL Creatinine 0.66 (0.5-1.4) mg/dL Estim Creat Clear Calc 102.9 Estimated GFR > 60 Random Glucose 89 (60-115) mg/dL Calcium 9.4 (8.4-10.2) mg/dL Total Bilirubin 0.1 (0.0-1.0) mg/dL AST 12 (5-31) U/L ALT 12 (0-31) U/L Alkaline Phosphatase 84 (39-117) U/L Total Protein 6.4 L (6.5-8.0) g/dL Albumin 3.9 (3.5-5.0) g/dL Discharge Plan Discharge Clinical Impression: Acute exacerbation of chronic obstructive airways disease Patient Disposition: Home, Self-Care Instructions: COPD (Chronic Obstructive Pulmonary Disease) (ED) Additional Instructions: Continue nebulizer treatment and use prednisone as prescribed Prescriptions: No Action Brovana 15 mcg/2 mL solution for nebulization 2 ml inhalation Q12H 30 Days Qty: 120 11RF Spiriva with HandiHaler 18 mcg capsule, w/inhalation device 1 cap inhalation DAILY Qty: 30 11RF budesonide 0.5 mg/2 mL suspension for nebulization 0.5 mg inhalation BID Qty: 120 11RF ipratropium-albuterol 0.5 mg-3 mg(2.5 mg base)/3 mL solution for nebulization 3 ml PO Q4H PRN (Reason: for wheezing) Qty: 540 6RF sodium chloride 7 % solution for nebulization 4 ml inhalation BID Qty: 240 11RF omeprazole 40 mg capsule,delayed release(DR/EC) 40 mg PO DAILY@0630 30 Days Qty: 30 6RF nicotine (polacrilex) [Nicorette] 2 mg gum 2 mg buccal Q2H Qty: 100 1RF diltiazem HCl [Tiadylt ER] 360 mg capsule,extended release 24 hr 360 mg PO DAILY rosuvastatin 5 mg tablet 5 mg PO BEDTIME roflumilast [Daliresp] 500 mcg tablet 500 mcg PO DAILY insulin lispro [Humalog U-100 Insulin] 100 unit/mL solution See Protocol subcut TIDAC Protocol: Insulin Correction Scale Less than or equal to 110 ---- Give (units): 0 111 to 150 Give (units): 0 151 to 200 Give (units): 2 201 to 250 Give (units): 4 251 to 300 Give (units): 6 301 to 350 Give (units): 8 Greater than 350 Give (units): 10 Call MD if Blood Glucose > : 350 metformin 500 mg tablet extended release 24 hr 1,000 mg PO BID hydralazine 25 mg tablet 25 mg PO DAILY insulin lispro 100 unit/mL solution 4 unit subcut TIDAC methadone 10 mg/mL Concentrate 50 mg PO DAILY lisinopril 40 mg tablet 40 mg PO DAILY Serevent Diskus 50 mcg/dose Blister With Device 1 inh inhalation RBID 30 Days Qty: 60 2RF simethicone [Gas Relief (simethicone)] 80 mg Tablet,Chewable 80 mg PO QIDWMHS PRN (Reason: Abdominal Distention) Qty: 30 0RF lamotrigine 150 mg tablet 150 mg PO BID alendronate 70 mg tablet 70 mg PO QWEEK lidocaine 5 % adhesive patch,medicated 1 patch topical DAILY Rx Instructions: APPLY FOR 12 HOURS THEN REMOVE FOR 12 HOURS bupropion HCl 75 mg tablet 75 mg PO DAILY cholecalciferol (vitamin D3) 1,250 mcg (50,000 unit) capsule 1,250 mcg PO 2XW calcitonin (salmon) 200 unit/actuation spray,non-aerosol 1 spray intranasal DAILY Rx Instructions: one nostril every day, alternate sides. insulin glargine [Lantus U-100 Insulin] 100 unit/mL solution 45 unit subcut BEDTIME gabapentin 300 mg capsule 300 mg PO DAILY docusate sodium 100 mg capsule 100 mg PO BID PRN (Reason: constipation) zolpidem 5 mg tablet 5 mg PO BEDTIME PRN (Reason: Sleep) polyethylene glycol 3350 [Miralax] 17 gram/dose powder 17 g PO DAILY PRN (Reason: constipation) Qty: 238 0RF prednisone 20 mg tablet 40 mg PO DAILY Qty: 10 0RF clonazepam 1 mg tablet 1 mg PO BID PRN (Reason: Anxiety) ibuprofen 600 mg tablet 600 mg PO Q8H PRN (Reason: Pain) prednisone 20 mg tablet 40 mg PO DAILY Qty: 10 0RF montelukast 10 mg tablet 10 mg PO BEDTIME albuterol sulfate [ProAir HFA] 90 mcg/actuation HFA aerosol inhaler 2 puff inhalation Q4H PRN (Reason: Shortness Of Breath Or Wheezing) loratadine [Claritin] 10 mg tablet 10 mg PO DAILY theophylline 450 mg tablet extended release 12 hr 450 mg PO Q12H 30 Days Qty: 60 6RF azathioprine [Imuran] 50 mg tablet 50 mg PO DAILY 30 Days Qty: 30 6RF prednisone 10 mg tablet 40 mg PO DAILY 30 Days Qty: 120 2RF folic acid 1 mg tablet 1 mg PO DAILY 30 Days Qty: 30 6RF sulfamethoxazole-trimethoprim [Bactrim] 400-80 mg tablet 1 tab PO DAILY Qty: 30 4RF amoxicillin-pot clavulanate 875-125 mg tablet 1 tab PO Q12H Qty: 20 0RF prednisone 10 mg tablet 10 mg PO DIRECTED Qty: 54 0RF Rx Instructions: Take 6 tabs daily x 3 days, then 5 tabs x 3 days, then 4 tabs x 3 days, then 3 tabs x 3 days, then back to daily dose of 20 mg (DME) nebulizers Misc See Rx Instructions .ROUTE Rx Instructions: As directed furosemide [Lasix] 20 mg tablet 20 mg PO DAILY 30 Days Qty: 30 2RF doxycycline monohydrate 100 mg tablet 100 mg PO BID 21 Days Qty: 42 0RF Interventions: ED Discharge Assessment Last Done: 09/23/23 05:17 Discharge Date/Time: 12/07/22 05:21
[2022-12-07 04:49] VITALS: PULSE 97; RESP 18; O2SAT 96
--- NOTE | 2022-12-07 05:08 | PC.NURSE ---
Assisting RN with discharge of pt.
== END 2022-12-07 05:21 | disposition home or self-care (01) ==
PROVIDERS: Emergency Provider Internal Medicine
DX: J44.1 Chronic obstructive pulmonary disease with (acute) exacerbation (principal); R06.02 Shortness of breath; E11.9 Type 2 diabetes mellitus without complications; I10 Essential (primary) hypertension; E78.5 Hyperlipidemia, unspecified; G47.33 Obstructive sleep apnea (adult) (pediatric); F11.20 Opioid dependence, uncomplicated; Z99.81 Dependence on supplemental oxygen; Z87.891 Personal history of nicotine dependence; Z79.4 Long term (current) use of insulin; Z79.899 Other long term (current) drug therapy
CPT/HCPCS: 36415; 71045; 80053; 85025; 94640; 99283; 99284

== ENCOUNTER 2022-12-14 19:30 | Emergency (ER) | payer MEDICAID, SELFPAY ==
--- NOTE | ~2022-12-14 | US_ITS ---
EXAMINATION: US VENOUS ULTRASOUND WITH DOPPLER LOWER EXTREMITY, RIGHT CLINICAL INFORMATION: Pain and swelling right little lower extremity. COMPARISON: Right lower extremity venous ultrasound 11/15/2022 . TECHNIQUE: Ultrasound of the deep veins is performed from the hip to the calf with compression sonography and color and pulse Doppler assessment. Spectral analysis with color-flow imaging is performed. FINDINGS: There is normal venous compression and respiratory variation and augmented flow. The visualized common femoral vein, superficial femoral vein, profunda femoral vein, popliteal vein, and the trifurcation region shows no evidence of deep venous thrombosis. The posterior tibial vein is patent.. The peroneal vein is not well visualized. There is no significant popliteal fossa cyst. If the patient's symptoms persist, followup ultrasound in 5 days 7 days might be of value to exclude proximal propagation from a non-visualized calf vein. US/US venous duplex LE RT IMPRESSION: No DVT demonstrated in the right lower extremity.
--- NOTE | ~2022-12-14 | XR_ITS ---
EXAMINATION: XR SHOULDER, RIGHT CLINICAL INFORMATION: Pain. COMPARISON: None available. TECHNIQUE: Three views of the right shoulder. FINDINGS: There is mild loss of AC joint space with hypertrophic spurring. There is calcification along the lateral greater tuberosity. The glenohumeral joint space is normal. No acute fracture or dislocation seen. The soft tissues are normal. XR/XR shoulder RT min 2V IMPRESSION: 1. Degenerative arthritic changes right AC joint. No visible acute fracture or dislocation seen. 2. There is calcification along the lateral greater tuberosity likely calcific tendinitis.
[2022-12-14 19:32] VITALS: BP 164/93; PULSE 102; O2SAT 97
[2022-12-14 19:37] VITALS: BP 141/62; PULSE 99; RESP 18; O2SAT 96; BMI 37.9
[2022-12-14 21:25] VITALS: PULSE 103; RESP 26; O2SAT 90
[2022-12-14] MEDS: Albuterol Sulfate 5 MG, Albuterol Sulfate (0.083%) 2.5 MG 7.5 MG INHALE (21:28)
--- NOTE | 2022-12-14 22:06 | ED.EXTPRO ---
HPI - Extremity Problem General Chief complaint: Extremity Injury, Upper Stated complaint: R shoulder pain Time Seen by Provider: 12/14/22 20:43 Source: patient and old records reviewed Mode of arrival: EMS Limitations: no limitations History of Present Illness HPI Narrative: 52 yo female with severe chronic resp failure and advanced COPD on home O2 and NIPPV, pneumonia, prior intubations here with c/o R shoulder pain x 5 days no known trauma hurts to move. She also notes R leg pain and swelling on and off x 2 weeks. She notes she is compliant with her medications and she is due for DVT study sometime this week. MD Complaint: extremity pain and extremity swelling Onset (ago): week(s) (2 weeks/5 days) Pain Consistency: constant Location: right, upper extremity and lower extremity Quality: aching and dull Radiation: none Relieving factors: rest Exacerbating factors: range of motion Associated symptoms: other (leg edema) Related Data Home Medications Medication Instructions Recorded Confirmed albuterol sulfate 90 mcg/actuation 2 puff inhalation Q4H PRN 12/30/19 10/20/22 aerosol inhaler (ProAir HFA) Shortness Of Breath Or Wheezing loratadine 10 mg tablet (Claritin) 10 mg PO DAILY 12/30/19 10/20/22 montelukast 10 mg tablet 10 mg PO BEDTIME 12/30/19 10/20/22 diltiazem HCl 360 mg capsule,24 360 mg PO DAILY 11/16/20 10/20/22 hr,extended release (Tiadylt ER) roflumilast 500 mcg tablet 500 mcg PO DAILY 11/16/20 10/20/22 (Daliresp) rosuvastatin 5 mg tablet 5 mg PO BEDTIME 11/16/20 10/20/22 insulin lispro 100 unit/mL See Protocol subcut TIDAC 12/14/20 10/20/22 subcutaneous solution (Humalog U-100 Insulin) metformin 500 mg tablet,extended 1,000 mg PO BID 05/18/21 10/20/22 release 24 hr methadone 10 mg/mL oral concentrate 50 mg PO DAILY 06/06/21 10/20/22 lisinopril 40 mg tablet 40 mg PO DAILY 07/30/21 10/20/22 hydralazine 25 mg tablet 25 mg PO DAILY 11/02/21 10/20/22 insulin lispro 100 unit/mL 4 unit subcut TIDAC 11/02/21 10/20/22 subcutaneous solution clonazepam 1 mg tablet 1 mg PO BID PRN Anxiety 06/28/22 10/20/22 ibuprofen 600 mg tablet 600 mg PO Q8H PRN Pain 06/28/22 10/20/22 alendronate 70 mg tablet 70 mg PO QWEEK 07/29/22 10/20/22 lamotrigine 150 mg tablet 150 mg PO BID 07/29/22 10/20/22 lidocaine 5 % topical patch 1 patch topical DAILY 07/29/22 10/20/22 bupropion HCl 75 mg tablet 75 mg PO DAILY 09/30/22 10/20/22 calcitonin (salmon) 200 1 spray intranasal DAILY 09/30/22 10/20/22 unit/actuation nasal spray cholecalciferol (vitamin D3) 1,250 1,250 mcg PO 2XW 09/30/22 10/20/22 mcg (50,000 unit) capsule gabapentin 300 mg capsule 300 mg PO DAILY 09/30/22 10/20/22 insulin glargine 100 unit/mL 45 unit subcut BEDTIME 09/30/22 10/20/22 subcutaneous solution (Lantus U-100 Insulin) docusate sodium 100 mg capsule 100 mg PO BID PRN constipation 10/20/22 10/20/22 zolpidem 5 mg tablet 5 mg PO BEDTIME PRN Sleep 10/20/22 10/20/22 nebulizers 11/08/22 Previous Rx's Medication Instructions Recorded salmeterol 50 mcg/dose blister 1 inh inhalation RBID 30 days #60 01/05/22 powder for inhalation (Serevent ea Diskus) simethicone 80 mg chewable tablet 80 mg PO QIDWMHS PRN Abdominal 01/05/22 (Gas Relief (simethicone)) Distention #30 tabs theophylline 450 mg 450 mg PO Q12H 30 days #60 tabs 05/08/22 tablet,extended release,12 hr arformoterol 15 mcg/2 mL solution 2 ml inhalation Q12H 30 days #120 06/07/22 for nebulization (Brovana) mL tiotropium bromide 18 mcg capsule 1 cap inhalation DAILY #30 ea 07/09/22 with inhalation device (Spiriva with HandiHaler) budesonide 0.5 mg/2 mL suspension 0.5 mg (2 mL) inhalation BID #120 08/15/22 for nebulization mL ipratropium 0.5 mg-albuterol 3 mg 3 ml PO Q4H PRN for wheezing #540 09/02/22 (2.5 mg base)/3 mL nebulization mL soln sodium chloride 7 % for 4 ml inhalation BID #240 mL 09/20/22 nebulization omeprazole 40 mg capsule,delayed 40 mg PO DAILY@0630 30 days #30 09/24/22 release caps polyethylene glycol 3350 17 17 g PO DAILY PRN constipation 10/22/22 gram/dose oral powder (Miralax) #238 grams prednisone 20 mg tablet 40 mg (2 x 20 mg) PO DAILY #10 tabs 10/22/22 amoxicillin 875 mg-potassium 1 tab PO Q12H #20 tabs 10/29/22 clavulanate 125 mg tablet prednisone 10 mg tablet 10 mg PO DIRECTED #54 tabs 10/29/22 doxycycline monohydrate 100 mg 100 mg PO BID 21 days #42 tabs 11/08/22 tablet furosemide 20 mg tablet (Lasix) 20 mg PO DAILY 30 days #30 tabs 11/08/22 nicotine (polacrilex) 2 mg gum 2 mg buccal Q2H #100 ea 11/11/22 (Nicorette) azathioprine 50 mg tablet (Imuran) 50 mg PO DAILY 30 days #30 tabs 11/13/22 folic acid 1 mg tablet 1 mg PO DAILY 30 days #30 tabs 11/13/22 prednisone 10 mg tablet 40 mg (4 x 10 mg) PO DAILY 30 days 11/13/22 #120 tabs sulfamethoxazole 400 1 tab PO DAILY #30 tabs 11/13/22 mg-trimethoprim 80 mg tablet (Bactrim) prednisone 20 mg tablet 40 mg (2 x 20 mg) PO DAILY #10 tabs 11/30/22 diclofenac sodium 1 % topical gel 2 g topical TID #100 grams 12/15/22 (Voltaren Arthritis Pain) lidocaine 5 % topical patch 1 patch topical DAILY #30 ea 12/15/22 Allergies Allergy/AdvReac Type Severity Reaction Status Date / Time No Known Allergies Allergy Verified 11/13/22 09:48 [No Known Allergies*] Review of Systems Review of Systems: Constitutional : No Fever, No Chills ENT/Mouth : No Ear Pain, No Hoarseness, No sore throat Eyes: No Eye Pain, No Swelling, No Redness, No Foreign Body Cardiovascular : No Chest Pain, chronic SOB, pos edema Respiratory : No Cough, No Dyspnea Gastrointestinal : No Nausea, No Vomiting, No Diarrhea, No abdominal Pain Genitourinary : No Dysuria, No Hematuria Musculoskeletal : positive joint pain, No Myalgias, No Joint Swelling Skin : No Skin lacerations, No rash Neuro : No Weakness, No Numbness, No Loss of Consciousness, No Dizziness, No Headache Psych : No Anxiety/Panic, No Depression Heme/Lymph: no easy bruising, no Lymphadenopathy Endocrine : No Polyuria, No Polydipsia All other systems reviewed and are negative [facility] Past Medical History Source: old records reviewed Medical History Bacteremia Acute and chronic respiratory failure with hypercapnia CHITO (obstructive sleep apnea) Morbid obesity Cor pulmonale Chronic constipation Cellulitis COPD mixed type Leukocytosis Aspiration into airway Pulmonary congestion Vomiting COPD exacerbation Acute respiratory failure Status asthmaticus with COPD (chronic obstructive pulmonary disease) Hypertensive cardiovascular disease Type 2 diabetes mellitus Morbid obesity Rib fractures Pulmonary nodule Abnormal chest x-ray Congestive heart failure Opioid dependence Limb swelling Abdominal pain Diabetes mellitus Chronic respiratory failure COPD (chronic obstructive pulmonary disease) Poor dentition Tobacco abuse Asthma-COPD overlap syndrome Hyperlipidemia, unspecified Essential hypertension Type 2 diabetes mellitus with unspecified complications Chronic respiratory failure Hypogammaglobulinemia Surgical History H/O tubal ligation Family History Family History Father Diabetes Other Asthma Social History Social History Household Members: Children Household Members Other:: daughter Housing: Apartment Do you presently have visiting nurse or other home services: Yes Unable to assess alcohol history related to: Unknown Alcohol intake: never Patient Tobacco Use Status: Former Tobacco user Quit Date: February 2022 Tobacco use type: Cigarette Cigarettes Per Day: 1 Years Smoked: 35 e-Cigarette/Vaping Use: Currently Using Second Hand Smoke Exposure: No Substance Use Type: Opiates Advance Directives: Yes Advance Directives on File: Yes Advance Directives Date on File: 06/12/21 service: No Current occupational status: unemployed and disabled Physical Exam Vital Signs: Vital Signs: Last Vital Signs Pulse 101 H 12/15/22 00:25 Resp 12 12/15/22 00:25 BP 159/75 H 12/15/22 00:25 Pulse Ox 92 12/15/22 00:25 O2 Del Method BiPAP 12/15/22 00:25 FiO2 28 12/15/22 00:25 Oxygen Flow Rate 3 12/14/22 19:37 BMI result Body Mass Index 37.9 Appearance: Alert. Oriented X3. No acute distress. Eyes: Pupils equal, round and reactive to light. ENT: Pharynx normal. Neck: Normal inspection. Neck supple. CVS: Normal heart rate and rhythm. Pulses normal. Respiratory: No respiratory distress. Breath sounds diminished Abdomen: Soft and nontender. Skin: Skin warm and dry. Normal skin color. Normal skin turgor. Extremities: 2+ right leg pitting edema, L leg 1+ pitting edema, R shoulder pain with ROM distal NV intact Neuro: Oriented X 3. No motor deficit. No sensory deficit. Medications Administered Discontinued Medications Generic Name Dose Route Start Last Admin Trade Name Freq PRN Reason Stop Dose Admin Albuterol Sulfate 5 mg/ 7.5 mg 12/14/22 21:26 12/14/22 21:28 Albuterol Sulfate 2.5 mg INHALE 12/14/22 21:27 7.5 mg ONCE ONE Administration Albuterol Sulfate 5 mg 12/14/22 22:55 12/14/22 23:07 Albuterol Sulfate 2.5 Mg/0.5 Ml Vial.Neb INHALE 12/14/22 22:56 5 mg ONCE ONE Administration Medical Decision Making Medical Decision Making MDM Narrative: 52 yo female with severe chronic resp failure and advanced COPD on home O2 and NIPPV, pneumonia, prior intubations now here with c/o R shoulder pain worse with movements but distal NV intact seems MSK in nature and R leg pain and swelling distal NV intact no signs of infection inermittent x 2 weeks. at this time labs, chronic neb treatment and xray of R shoulder which seems MSK in nature and R leg DVT study - has hx of intermittent swelling - no other swelling noted. Differential Diagnosis Differential Diagnoses: The differential diagnosis associated with the presentation includes edema, DVT, strain, MSK Admission/Observation Consideration of admission/observation: Escalation of care including admission/observation considered I do not think she needs admission this is chronic but she wants to sleep her due to social issues for a little bit feels anxiety her has cirrhosis and she wants to sleep on her home bipap. she is not in her respiratory distres as usual she comes for other issues. she was given nebs and then asked to rest and sleep here due to stress at home but then changed her mind and wanted to go home. patient wants to go home now declines rehab she is looking good she is much better than baseline no distress no retention not toxic can be DC home she states she wants someone to be at her house and watch her breathing but doesn't want to go to rehab. Lab Data MDM Lab Attestation statement: I reviewed the patient's lab results. chronic WBC count 12/14/22 22:05 12/14/22 22:05 Labs: Lab Results 12/14/22 Range/Units 22:05 WBC 15.6 H (4.8-10.8) X10*3/uL RBC 4.28 (4.20-5.50) X10*6/uL Hgb 12.3 (12.0-16.0) g/dl Hct 41.1 (37.0-47.0) % MCV 96.0 (80.0-98.0) fL MCH 28.7 (27.0-33.0) pg MCHC 29.9 L (31.0-35.0) g/dl RDW 13.8 (11.0-16.0) % Plt Count 331 (160-400) X10*3/uL MPV 8.9 L (9.4-12.3) fL Immature Gran % (Auto) 0.4 (0.0-0.4) % Neut % (Auto) 84.6 H (45-73) % Lymph % (Auto) 9.3 L (20-40) % Ogle % (Auto) 5.3 (2-11) % Eos % (Auto) 0.2 (0-4) % Baso % (Auto) 0.2 (0-2) % Lymph # (Auto) 1.5 (1.2-4.9) X10*3/uL Ogle # (Auto) 0.8 (0.1-1.2) X10*3/uL Eos # (Auto) 0.0 (0.0-0.4) X10*3/uL Baso # (Auto) 0.0 (0.0-0.2) X10*3/uL Abs Immat Gran (auto) 0.07 H (0.00-0.03) X10*3/uL Absolute Neuts (auto) 13.2 H (2.0-8.3) x10*3/uL Absolute Nucleated RBC 0.000 (0.0-0.012) X10*3/uL Nucleated RBC % (auto) 0.0 (0.0-0.2) /100WBC PT 10.1 L (11.1-13.3) SEC INR 0.8 L (0.9-1.1) Sodium 145 (135-145) mmol/L Potassium 4.3 D (3.3-5.1) mmol/L Chloride 97 (96-108) mmol/L Carbon Dioxide 38 H (22-29) mmol/L Anion Gap 14 (12-20) BUN 20 H (9-16) mg/dL Creatinine 0.69 (0.5-1.4) mg/dL Estim Creat Clear Calc 101.7 Estimated GFR > 60 Random Glucose 173 H (60-115) mg/dL Calcium 10.3 H D (8.4-10.2) mg/dL Magnesium 1.8 (1.6-2.6) mg/dL Total Bilirubin 0.1 (0.0-1.0) mg/dL Direct Bilirubin < 0.2 (0.0-0.5) mg/dL AST 12 (5-31) U/L ALT 12 (0-31) U/L Alkaline Phosphatase 78 (39-117) U/L B-Natriuretic Peptide 25 (<100) pg/mL Total Protein 6.8 (6.5-8.0) g/dL Albumin 4.1 (3.5-5.0) g/dL Independent Interpretation I performed an independent interpretation of an: Plain X-Ray (hypertensive) and Ultrasound (no DVT) Radiology Impression Discussion of test interpretation with radiology: I have reviewed the radiologist's reading. Independent Historian Clinical information obtained from an independent historian. History obtained from or confirmed by: EMS External Record Review External record reviewed: Inpatient record Prescription Management I considered prescription management with: Other (pain gel and lidocaine patch) Social Determinants Patient?s care significantly limited by Social Determinants of Health including: Problems related to primary support group Discharge Plan Discharge Clinical Impression: Acute bronchospasm, Leg edema, right, Tendonitis Patient Disposition: Home, Self-Care Instructions: Leg Edema (ED), Bronchospasm (ED), Tendinitis (ED) Additional Instructions: you have tendonitis in your shoulder and arthritis. I have ordered patches and pain gel. return for worsening symptoms. repeat ultrasound in 5 to 7 days but no blood clot. return for chest pain, increased difficulty breathing or any other concerns. Tienes tendinitis en el hombro y artritis. He pedido parches y gel para el dolor. regresar si los s?ntomas empeoran. repita la ecograf?a en 5 a 7 d?as roxanne no hay co?gulo de ja. Regrese si tiene dolor en el pecho, mayor dificultad para respirar o cualquier otra inquietud. Prescriptions: New lidocaine 5 % adhesive patch,medicated 1 patch topical DAILY Qty: 30 0RF Rx Instructions: leave on most painful area for up to 12 hrs diclofenac sodium [Voltaren Arthritis Pain] 1 % gel 2 g topical TID Qty: 100 0RF Rx Instructions: apply to single elbow, wrist or hand; for hand includes palm/fingers/back of hand No Action Brovana 15 mcg/2 mL solution for nebulization 2 ml inhalation Q12H 30 Days Qty: 120 11RF Spiriva with HandiHaler 18 mcg capsule, w/inhalation device 1 cap inhalation DAILY Qty: 30 11RF budesonide 0.5 mg/2 mL suspension for nebulization 0.5 mg inhalation BID Qty: 120 11RF ipratropium-albuterol 0.5 mg-3 mg(2.5 mg base)/3 mL solution for nebulization 3 ml PO Q4H PRN (Reason: for wheezing) Qty: 540 6RF sodium chloride 7 % solution for nebulization 4 ml inhalation BID Qty: 240 11RF omeprazole 40 mg capsule,delayed release(DR/EC) 40 mg PO DAILY@0630 30 Days Qty: 30 6RF nicotine (polacrilex) [Nicorette] 2 mg gum 2 mg buccal Q2H Qty: 100 1RF diltiazem HCl [Tiadylt ER] 360 mg capsule,extended release 24 hr 360 mg PO DAILY rosuvastatin 5 mg tablet 5 mg PO BEDTIME roflumilast [Daliresp] 500 mcg tablet 500 mcg PO DAILY insulin lispro [Humalog U-100 Insulin] 100 unit/mL solution See Protocol subcut TIDAC Protocol: Insulin Correction Scale Less than or equal to 110 ---- Give (units): 0 111 to 150 Give (units): 0 151 to 200 Give (units): 2 201 to 250 Give (units): 4 251 to 300 Give (units): 6 301 to 350 Give (units): 8 Greater than 350 Give (units): 10 Call MD if Blood Glucose > : 350 metformin 500 mg tablet extended release 24 hr 1,000 mg PO BID hydralazine 25 mg tablet 25 mg PO DAILY insulin lispro 100 unit/mL solution 4 unit subcut TIDAC methadone 10 mg/mL Concentrate 50 mg PO DAILY lisinopril 40 mg tablet 40 mg PO DAILY Serevent Diskus 50 mcg/dose Blister With Device 1 inh inhalation RBID 30 Days Qty: 60 2RF simethicone [Gas Relief (simethicone)] 80 mg Tablet,Chewable 80 mg PO QIDWMHS PRN (Reason: Abdominal Distention) Qty: 30 0RF lamotrigine 150 mg tablet 150 mg PO BID alendronate 70 mg tablet 70 mg PO QWEEK lidocaine 5 % adhesive patch,medicated 1 patch topical DAILY Rx Instructions: APPLY FOR 12 HOURS THEN REMOVE FOR 12 HOURS bupropion HCl 75 mg tablet 75 mg PO DAILY cholecalciferol (vitamin D3) 1,250 mcg (50,000 unit) capsule 1,250 mcg PO 2XW calcitonin (salmon) 200 unit/actuation spray,non-aerosol 1 spray intranasal DAILY Rx Instructions: one nostril every day, alternate sides. insulin glargine [Lantus U-100 Insulin] 100 unit/mL solution 45 unit subcut BEDTIME gabapentin 300 mg capsule 300 mg PO DAILY docusate sodium 100 mg capsule 100 mg PO BID PRN (Reason: constipation) zolpidem 5 mg tablet 5 mg PO BEDTIME PRN (Reason: Sleep) polyethylene glycol 3350 [Miralax] 17 gram/dose powder 17 g PO DAILY PRN (Reason: constipation) Qty: 238 0RF prednisone 20 mg tablet 40 mg PO DAILY Qty: 10 0RF clonazepam 1 mg tablet 1 mg PO BID PRN (Reason: Anxiety) ibuprofen 600 mg tablet 600 mg PO Q8H PRN (Reason: Pain) prednisone 20 mg tablet 40 mg PO DAILY Qty: 10 0RF montelukast 10 mg tablet 10 mg PO BEDTIME albuterol sulfate [ProAir HFA] 90 mcg/actuation HFA aerosol inhaler 2 puff inhalation Q4H PRN (Reason: Shortness Of Breath Or Wheezing) loratadine [Claritin] 10 mg tablet 10 mg PO DAILY theophylline 450 mg tablet extended release 12 hr 450 mg PO Q12H 30 Days Qty: 60 6RF azathioprine [Imuran] 50 mg tablet 50 mg PO DAILY 30 Days Qty: 30 6RF prednisone 10 mg tablet 40 mg PO DAILY 30 Days Qty: 120 2RF folic acid 1 mg tablet 1 mg PO DAILY 30 Days Qty: 30 6RF sulfamethoxazole-trimethoprim [Bactrim] 400-80 mg tablet 1 tab PO DAILY Qty: 30 4RF amoxicillin-pot clavulanate 875-125 mg tablet 1 tab PO Q12H Qty: 20 0RF prednisone 10 mg tablet 10 mg PO DIRECTED Qty: 54 0RF Rx Instructions: Take 6 tabs daily x 3 days, then 5 tabs x 3 days, then 4 tabs x 3 days, then 3 tabs x 3 days, then back to daily dose of 20 mg (DME) nebulizers Misc See Rx Instructions .ROUTE Rx Instructions: As directed furosemide [Lasix] 20 mg tablet 20 mg PO DAILY 30 Days Qty: 30 2RF doxycycline monohydrate 100 mg tablet 100 mg PO BID 21 Days Qty: 42 0RF Print Language: Khmer
[2022-12-14 22:09] LABS: MANUAL DIFF FLAG NO
[2022-12-14 22:16] LABS: INTERNATIONAL NORM RATIO 0.8 (0.9-1.1); Prothrombin Time 10.1 SEC (11.1-13.3)
[2022-12-14 22:20] LABS: Basophils Percent Auto 0.2 % (0-2); Eosinophils Percent Auto 0.2 % (0-4); Hematocrit 41.1 % (37.0-47.0); Hemoglobin 12.3 g/dl (12.0-16.0); Imm Gran Abs Auto 0.07 X10*3/uL (0.00-0.03); Imm Gran Pct Auto 0.4 % (0.0-0.4); Lymphocytes Absolute Auto 1.5 X10*3/uL (1.2-4.9); Lymphocytes Percent Auto 9.3 % (20-40); Mean Corpuscular HGB Conc 29.9 g/dl (31.0-35.0); Mean Corpuscular Hemoglobin 28.7 pg (27.0-33.0); Mean Platelet Volume 8.9 fL (9.4-12.3); Monocytes Absolute Auto 0.8 X10*3/uL (0.1-1.2); Monocytes Percent Auto 5.3 % (2-11); Neutrophils Absolute Auto 13.2 x10*3/uL (2.0-8.3); Neutrophils Percent Auto 84.6 % (45-73); Platelet Count 331 X10*3/uL (160-400); Red Blood Count 4.28 X10*6/uL (4.20-5.50); Red Cell Distribution Width 13.8 % (11.0-16.0); White Blood Count 15.6 X10*3/uL (4.8-10.8)
[2022-12-14 22:27] LABS: Alanine Aminotransferase 12 U/L (0-31); Albumin Level 4.1 g/dL (3.5-5.0); Alkaline Phosphatase 78 U/L (39-117); Anion Gap 14 (12-20); Aspartate Amino Transferase 12 U/L (5-31); Bilirubin Direct < 0.2 mg/dL (0.0-0.5); Bilirubin Total 0.1 mg/dL (0.0-1.0); Blood Urea Nitrogen 20 mg/dL (9-16); Calcium 10.3 mg/dL (8.4-10.2); Carbon Dioxide 38 mmol/L (22-29); Chloride 97 mmol/L (96-108); Creatinine Clr Calc Pharmacy 101.7; Estimated Glomerular Filt Rate > 60; Glucose Random 173 mg/dL (60-115); Magnesium 1.8 mg/dL (1.6-2.6); Potassium 4.3 mmol/L (3.3-5.1); Sodium 145 mmol/L (135-145); Total Protein 6.8 g/dL (6.5-8.0)
[2022-12-14 22:32] LABS: B Type Natriuretic Peptide 25 pg/mL (<100)
[2022-12-14] MEDS: Albuterol Sulfate 2.5 MG/0.5 ML VIAL.NEB 5 MG INHALE (23:07)
[2022-12-14 23:10] VITALS: PULSE 103; RESP 26; O2SAT 93
[2022-12-14 23:22] VITALS: PULSE 106; RESP 18; O2SAT 95
[2022-12-15 00:25] VITALS: BP 159/75; PULSE 101; RESP 12; O2SAT 92
--- NOTE | 2022-12-15 01:12 | MHC.EDTECH ---
call out to isaiah at 0112 to book transport for pt, estimated eta given was by 0230
[2022-12-15 02:55] VITALS: BP 100/80; PULSE 111; RESP 15; TEMP 36.8; O2SAT 94
[2022-12-15] MEDS: Albuterol Sulfate 90 MCG 8 GM INHALER 2 PUFF INHALE (03:06)
--- NOTE | 2022-12-15 03:20 | PC.NURSE ---
pt was feeling shaky after receiving resp treatments, poc taken 116 wnl and pt feels ready for discharge.
[2022-12-15 03:21] LABS: Glucose, Whole Blood 116 mg/dL (60-115)
== END 2022-12-15 04:26 | disposition home or self-care (01) ==
PROVIDERS: Emergency Provider Emergency Medicine
DX: J98.01 Acute bronchospasm (principal); R60.0 Localized edema; M79.604 Pain in right leg; M75.91 Shoulder lesion, unspecified, right shoulder; F41.9 Anxiety disorder, unspecified; E11.9 Type 2 diabetes mellitus without complications; I11.0 Hypertensive heart disease with heart failure; I50.9 Heart failure, unspecified; E78.5 Hyperlipidemia, unspecified; J96.10 Chronic respiratory failure, unspecified whether with hypoxia or hypercapnia; J44.9 Chronic obstructive pulmonary disease, unspecified; Z99.81 Dependence on supplemental oxygen; F11.20 Opioid dependence, uncomplicated; E66.9 Obesity, unspecified; Z68.37 Body mass index [BMI] 37.0-37.9, adult; Z87.891 Personal history of nicotine dependence; Z79.4 Long term (current) use of insulin; Z79.899 Other long term (current) drug therapy
CPT/HCPCS: 36415; 73030; 80048; 80076; 82947; 83735; 83880; 85025; 85610; 93971; 94640; 99284; 99285

== ENCOUNTER 2022-12-17 09:43 | Outpatient (REF) | payer MEDICAID, SELFPAY | END 2022-12-17 09:44 | disposition home or self-care (01) | LOC: HO.US 09:43 | PROVIDERS: Visit Provider Family Medicine | DX: Z13.89 Encounter for screening for other disorder (principal) ==

== ENCOUNTER 2022-12-17 10:33 | Outpatient (REF) | payer MEDICAID, SELFPAY | END 2022-12-17 10:34 | disposition home or self-care (01) | LOC: HO.MDS 10:33 | PROVIDERS: Visit Provider Hospitalist | DX: D80.1 Nonfamilial hypogammaglobulinemia (principal) | CPT/HCPCS: 96365; 96366; J1569 ==

== ENCOUNTER 2022-12-19 10:34 | Outpatient (AMB) | payer MEDICAID, SELFPAY ==
[2022-12-19 10:44] VITALS: PULSE 92; O2SAT 97; BMI 37.8
--- NOTE | 2022-12-19 10:44 | MHC.OFFVIS ---
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 She has been on high doses of prednisone currently on chronic steroids for ongoing respiratory issues. Recently she was placed on a prednisone taper. She is down to 30 mg at this time. She does respond well to noninvasive ventilator which she uses at nighttime and also as needed. Today she appears to be more dyspneic in appearance. It was apparent that her pulse ox was stable at 97% on her current oxygen however she was significantly tachycardic up to the 130s. I did offer her to get x-rays labs in an EKG today but, the patient opted on getting the tomorrow. I explained to her her symptoms worsen she is to go to the ER to be evaluated. We also talked about her respiratory failure where appears to be getting worse. The patient benefits from a wheelchair to help her with transportation and her appointments. She also may benefit from a sip and puff device as an accessory to noninvasive ventilator which she could potentially use it outside of the home for her progressive respiratory failure. She has been taking theophylline. Had planned to increase her theophylline. however, with the increased heart rate will hold off at this time. herABG from May 2019 demonstrated a pH 7.44 with a pCO2 of 69. Her bicarb also has been elevated at 41. Once we optimize her respiratory therapy with noninvasive ventilator will recheck her blood gas. In the meantime will check a theophylline level and also increase her theophylline level accordingly. Patient did develop worsening respiratory symptoms approximately 3-4 weeks ago. Therefore we will have her get checked for the SARS CoV 2 IgG antibodies. Unfortunately, the patient continues to smoke. We did talk about smoking cessation. Her is going to try to quit and once he quits he is not going to provide her with anymore cigarettes which should be very effective and helping her quit smoking. 07/24/2021 the patient has a telephone visit. She still complaining of the chest discomfort. It appears to be pleuritic in nature. Appears to be moderate in severity. I did send her Motrin which appears to be helping although it is helping temporarily. I did review her most recent chest x-ray starting from the end of April. It appears that she had a chest x-ray with increased perihilar congestion and evidence of airspace disease. She was treated at that point for infectious process. Subsequent x-rays in May demonstrated an area of airspace disease and also bilateral rib fractures. She continued having chest pain. Her chest x-rays continued to be abnormal demonstrating densities suspicious for the healed rib fractures. Will have the patient undergo a CT scan of the chest to better address the parenchymal lung disease in addition to the rib fractures. in addition to that the patient has been on chronic prednisone and likely has significant osteopenia putting her at risk for fractures. Will request a CT scan urgently will have her come in to evaluate the findings. In the meantime she will continue with the Motrin. 09/04/2021 the patient is here for sick visit. She had been in the hospital for a prolonged period of time after developing human metapneumovirus with significant COPD exacerbation and respiratory failure. During that visit she did have a couple CT scans which we personally reviewed demonstrating significant treating budding and ground-glass opacities suggesting viral pneumonitis. The patient was able to be discharged home. Initially felt better but then it started developing the chest discomfort again. The chest discomfort is in the reproducible. A response to Motrin. Unfortunately with her dose of prednisone this can cause significant gastritis. in the meantime the patient also has noticed increased lower extremity swelling right more than left. She did have a D-dimer checked today which was negative for any risk for thromboembolic disease. Her white count was indeed elevated with a left shift so will treated for an infectious process. The patient will be evaluated again in a few weeks. I will request a repeat CT scan during that visit. She is trying to quit smoking. She does have patches available. She had 1 yesterday and will be putting on 1 today when she gets home. She is using her oxygen regularly. She is also using her noninvasive ventilator at nighttime. The patient seems to be more motivated. 10/04/2021 the patient is here for a pulmonary follow-up visit. Overall she is doing a little better. Unfortunately she continues on 30 mg of prednisone. I did give her instructions on how to decrease his slowly by 2.5 mg every week. I am hopeful that she can get down to 20 mg. she also started her hepatitis C antibiotic therapy. Therefore she had to be taken off the theophylline. We did talk about other steroids Pauline agents that we can try once she completes the hepatitis C therapy. She continues on her nebulized therapy. She needs to call to schedule her effusions were IVIG. She continues to smoke cigarettes. She is trying to cut down. She briefly went to the ER 1-2 weeks ago for the worsening shortness of breath and chest pain. Her chest x-ray actually looks better. The patient did have an ABG at some point demonstrating a CO2 of 82 mmHg consistent with chronic hypercarbic respiratory failure. She is using her noninvasive ventilator every night. Based on degree of respiratory failure she may benefit from using it also during the daytime as well. We can also set up a sip and puff device along with it. the patient is here for Hospital follow-up visit. patient recently admitted to hospital. Initially went to the ER she was discharged home and then she was admitted to the hospital with acute on chronic hypercarbic respiratory failure. She did have venous gas done with a PCO2 of 90 which is much higher than her baseline. he was placed on BiPAP with good response. She was also given IV steroids and antibiotics. She was treated for COPD exacerbation. The patient has been taking theophylline although her theophylline levels are very low. It may have been that she was not offered during the hospital stay. Will go ahead and restart the theophylline at a higher dose with the help of maximizing her respiratory capacity. I also did reach out to her [employer], [employer], in order to adjust her noninvasive ventilator further. Will try to optimize the pressures higher to try to provide her with better severe to clearance. Unfortunately still smoking. This has been a bit struggle for her. I am hopeful that she can quit. The patient does require high doses of prednisone. She is starting to appear cushingoid. Appears to be steroid resistant at this time. she also does continue to use the IVIG infusions every month. Will continue to monitor. Will have to recheck her levels and see if we need to adjust the frequency or the dose. 01/25/2022 the patient is here for a follow-up visit. She recently was hospitalized with RSV and did require intubation for a brief period. She was able to be liberated from the ventilator and she will back on her noninvasive ventilation. She has been using it with good compliance. She did have an ABG prior to this visit. It appears that her CO2 is now in the 50s which is reassuring although her PaO2 on the 2 L is only 59 mmHg. The patient will increase her oxygen some to trial a keep her PO2 above 60. she quit smoking since she has been at a hospital. She is motivated this time. This is the 1st time that she is able to go this bowel of smoking which is very reassuring. She continues her IVIG infusions. These are helpful. She is also on theophylline. Her theophylline levels are within normal limits. She continues on prednisone. Seems like she cannot get below 25 mg. 04/05/2022 the patient is here for a pulmonary follow-up visit. The the patient continues to do well. She quit smoking altogether since January. She has been motivated after having a very serious admission to the hospital. She also has been able to cut down her prednisone down to 20 mg daily which is very reassuring. She continues use her noninvasive ventilator at nighttime with good effect. She also continues with the oxygen at 2 L continuously. During the office visit we did do a 6 minutes walk test. The patient on room air does desaturate down to 88% after several minutes off the oxygen. On 2 L she does improved about 97%. The patient does not ambulate too much but on 2 L she is able to maintain a pulse ox of 94% with activity. We only ambulated for about 50 ft because of significant back discomfort and leg discomfort. Will have her undergo blood work to assess her theophylline level and also her ..venous CO2 level. She does use a noninvasive ventilator but sometimes she feels a little restless prior to using it and she is wondering if she is starting to accumulate CO2. At this point based on her CO2 levels in the fact that she is tolerating her noninvasive ventilator will continue the current settings. 05/08/2022 the patient is here for a pulmonary follow-up visit. She complains of increasing dyspnea on exertion. Typically address she is on 2 L. Then with activity she does increase it to 3 or 4 L because she is very short of breath. She has been on 20 mg of prednisone. One days she did increase it because she was having shortness of breath. In addition to that she started developing pleuritic left-sided chest discomfort. She did go to the ER on the 18 of this month. The had an x-ray done and also an EKG and cardiac enzymes. Everything looked good. The patient was discharged her medical regimen. She still continues to have that discomfort. She responded well to Lee 2 inhibitors in the past. She knows not to use Motrin or NSAIDs when she is using diclofenac. She also continues use the Trelegy at nighttime and also during the day. During the visit we did do a 6 minutes walk test. The patient actually did well on 2 L throughout the ambulation but she was very short of breath and dizzy needing to stop. It was mainly that heart rate was up in the 130s 140s. This could be a sign of cor pulmonale. The patient did have an echocardiogram demonstrating pulmonary hypertension. The patient is still struggles with her smoking. She is trying to cut down. The 05/27/2022 the patient is here for a pulmonary follow-up visit. Since we last spoke she started developing worsening productive cough with green phlegm. It was thick and tenacious. Increasing frequency. She called the office because of that and chest tightness. She was on Levaquin for 14 days. She is feeling better although I will send another week to make sure that we completely treat any potential Pseudomonas or enteric infection. The patient continues to be CT IVIG. She is also stop smoking which is reassuring. Hopefully she will see the benefits of that soon. She does complaint of left-sided pleuritic discomfort. She had been on at Lee 2 inhibitor with good effect previously. In addition to that she has had multiple x-rays without any significant findings. Her last CT scan was back in September 2021 with pulmonary nodules rib fractures and airspace disease. Will go ahead and plan to repeat the CT scan before next visit. She continues use the noninvasive ventilator and also her oxygen. Otherwise patient is without any other complaints. 11/13/2022 the patient is here for a pulmonary follow-up visit. The patient is still having significant difficulties with breathing. Seems to be progressing. She does use her noninvasive ventilator at nighttime and also at times during the daytime. I did encourage her to use the noninvasive ventilator more during the daytime. I will request a sip and puff device from her [employer] company, [employer]. With the sip and puff device she will have a more easily assessable to use it. She also understands that the noninvasive ventilator has a battery life that is able to will able to work for 6-8 hours she can use it outside of the home. The patient has been on high dose of the prednisone. She is still struggling to breathe. She recently was told that her therapy for her liver. Hepatitis was success. Her last liver function studies are within normal limits. Therefore will try her on some Imuran will monitor closely her levels of her liver function studies. If she tolerates the medication we can increase it with hopes of providing her with a different steroid sparing agent. She did have a blood gas today. She does have the chronic hypercarbic respiratory failure but without any acuity so therefore she can continue to be treated at home. The patient also had lower extremity Dopplers negative for any DVT which is reassuring. 12/19/2022 the patient is here for pulmonary follow-up visit. He is in the hospital. She has been complaining of a right lower extremity pain. She had another Doppler which was negative for DVT. Her legs indeed swollen and somewhat erythematous. She is also having pain in the bottom referred. Breathing flowers she is still having hard time breathing. She is trying to use her noninvasive ventilator during the daytime. Her blood gases overall have been reassuring although her CO2 continues to climb slowly. Her bicarb is also elevated. Therefore will try some Diamox to see we can decrease the bicarb in order to be able to be released at additional CO2. If she tolerates the use of Diamox for 3 days we can also consider adding in the small dose 3 times a week. Will readdress that with repeat blood work in a venous gas in 2 weeks and then will have her see follow-up in 3 weeks. She also ended up getting the sip and puff device although she has not been able to use it because the pressures are too high. Will have to further adjust the pressures according. Since she left the hospital she has been on 40 mg of prednisone. Just yesterday she dropped down to 30 mg because she should really be at a baseline of 20 mg. She will then taper down weeks time to 25 and then again to 20 mg. We will increase her azathioprine that she is taking in order to try to minimize her steroid use and she can increase that to 100 mg. She is taking folate and will add biotin because she will have further hair loss. Unfortunately, even with all these issues the patient continues to smoke cigarettes. She understands that all this medications will being vain if she continues to smoke cigarettes worsening overall health. [facility] Medical History Bacteremia Acute and chronic respiratory failure with hypercapnia CHITO (obstructive sleep apnea) Morbid obesity Cor pulmonale Chronic constipation Cellulitis COPD mixed type Leukocytosis Aspiration into airway Pulmonary congestion Vomiting COPD exacerbation Acute respiratory failure Status asthmaticus with COPD (chronic obstructive pulmonary disease) Hypertensive cardiovascular disease Type 2 diabetes mellitus Morbid obesity Rib fractures Pulmonary nodule Abnormal chest x-ray Congestive heart failure Opioid dependence Limb swelling Abdominal pain Diabetes mellitus Chronic respiratory failure COPD (chronic obstructive pulmonary disease) Poor dentition Tobacco abuse Asthma-COPD overlap syndrome Hyperlipidemia, unspecified Essential hypertension Type 2 diabetes mellitus with unspecified complications Chronic respiratory failure Hypogammaglobulinemia Surgical History H/O tubal ligation Family History Father Diabetes Other Asthma Social History Household Members: Children Household Members Other:: daughter Housing: Apartment Do you presently have visiting nurse or other home services: Yes Unable to assess alcohol history related to: Unknown Alcohol intake: never Patient Tobacco Use Status: Former Tobacco user Quit Date: February 2022 Tobacco use type: Cigarette Cigarettes Per Day: 1 Years Smoked: 35 e-Cigarette/Vaping Use: Currently Using Second Hand Smoke Exposure: No Substance Use Type: Opiates Advance Directives Date on File: 06/12/21 service: No Current occupational status: unemployed and disabled Review of Systems Const Denies night sweats ENT Denies change in voice, Denies lip swelling, Denies mouth pain, Reports nasal congestion, Reports nasal discharge and Denies tongue swelling Card Denies chest pain, Reports dyspnea and Reports dyspnea on exertion Resp Reports change in phlegm color, Reports chest congestion, Reports cough, Denies hemoptysis, Reports pain on inspiration, Reports pain with cough, Reports dyspnea, Reports dyspnea on exertion and Reports wheezing GI Reports abdominal pain Musc Denies no additional complaints Skin/Breast Denies pruritus and Denies lesions Neuro Denies Neuro-related abnormal movements Psych Denies no additional complaints Blade/Lymph Denies easy bleeding and Denies lymphadenopathy Aller/Immun Denies lip swelling, Denies tongue swelling and Reports wheezing Physical Exam Vital Signs: Last Vital Signs Pulse 92 12/19/22 10:44 Pulse Ox 97 12/19/22 10:44 Oxygen Delivery Method Room Air 12/19/22 10:44 BMI result Body Mass Index 37.8 Last Vital Signs Temp 98.3 F 08/04/21 12:00 Pulse 102 H 08/04/21 12:00 Resp 20 08/04/21 12:00 BP 140/73 H 08/04/21 12:00 Pulse Ox 94 08/04/21 12:00 Oxygen Flow Rate 35 08/03/21 20:00 BMI result Body Mass Index 36.9 Const General: alert Neck Neck: Yes normal visual inspection, Yes full ROM and Yes no lymphadenopathy Chest Chest palpation & inspection: normal inspection of the chest Resp Effort & Inspection: prolonged expiratory phase Auscultation: no wheezes and diminished lung sounds Cardio Rate: tachycardic Rhythm: regular rhythm Heart sounds: S1 normal heart sound present and S2 normal heart sound present GI Palpation (GI): Soft to palpation and nontender Auscultation: normal bowel sounds Skin General skin exam: rashes and/or lesions noted Extrem Right lower extremity: lower leg Details: erythema and warmth Assessment & Plan Assessment & Plan (1) Asthma-COPD overlap syndrome: Code(s): J44.9 - Chronic obstructive pulmonary disease, unspecified (2) Chronic respiratory failure: Code(s): J96.10 - Chronic respiratory failure, unspecified whether with hypoxia or hypercapnia Qualifiers: Respiratory failure complication: hypoxia and hypercapnia Qualified Code(s): J96.11 - Chronic respiratory failure with hypoxia; J96.12 - Chronic respiratory failure with hypercapnia (3) Hypercapnic respiratory failure: Code(s): J96.92 - Respiratory failure, unspecified with hypercapnia Qualifiers: Chronicity: chronic Qualified Code(s): J96.12 - Chronic respiratory failure with hypercapnia (4) Left leg swelling: Code(s): M79.89 - Other specified soft tissue disorders (5) Tobacco abuse: Code(s): Z72.0 - Tobacco use (6) Hypogammaglobulinemia: Code(s): D80.1 - Nonfamilial hypogammaglobulinemia Plan Tobacco cessation, has not been able to quit. She is progressively worsening. She does have the NIV. May benefit for additional daytime use. Will have to continue to help her with the mouth piece repeat VBG and bloodwork in 2 weeks continue prednisone taper down to her baseline 20mg daily bactrim PCP prophylaxis Increase Imuran 100mg daily, monitor liver enzymes start diamox x 3 days and recheck blood gas respiratory therapy, Nebs QID Needs to quit smoking continue IVIG every 4 weeks Daliresp continue Lasix daily F/U 4 weeks Medications: New acetazolamide 250 mg PO DAILY 3 tabs 0RF biotin 10 mg PO DAILY 30 days 30 tabs 5RF Changed From azathioprine (Imuran) 50 mg PO DAILY 30 days 30 tabs 6RF To azathioprine (Imuran) 100 mg (2 x 50 mg) PO DAILY 30 days 60 tabs 6RF Refilled folic acid 1 mg PO DAILY 30 days 30 tabs 6RF Quality Reporting (2019) Adult ([facility] 138/05/08/68) Smoking risk assessment performed?: Yes Patient Tobacco Use Status: Former Tobacco user Coding Level of Care Code Est Pt Level 5 (56632) Diagnoses Asthma-COPD overlap syndrome J44.9 Chronic respiratory failure with hypoxia and hypercapnia J96.11; J96.12 Respiratory failure complication: hypoxia and hypercapnia Chronic respiratory failure with hypercapnia J96.12 Chronicity: chronic Left leg swelling M79.89 Tobacco abuse Z72.0 Hypogammaglobulinemia D80.1 Time Spent (min) 46
== END 2022-12-19 11:13 | disposition home or self-care (01) ==
PROVIDERS: Visit Provider Hospitalist
DX: J44.9 Chronic obstructive pulmonary disease, unspecified (principal); J96.11 Chronic respiratory failure with hypoxia; J96.12 Chronic respiratory failure with hypercapnia; Z87.891 Personal history of nicotine dependence
CPT/HCPCS: 99215

== ENCOUNTER → 2022-12-19 10:34 | Outpatient (BNVA) | payer MEDICAID, SELFPAY | PROVIDERS: Visit Provider Hospitalist | DX: J44.9 Chronic obstructive pulmonary disease, unspecified (principal); J96.11 Chronic respiratory failure with hypoxia; J96.12 Chronic respiratory failure with hypercapnia; M79.89 Other specified soft tissue disorders; F17.210 Nicotine dependence, cigarettes, uncomplicated; D80.1 Nonfamilial hypogammaglobulinemia; Z79.52 Long term (current) use of systemic steroids | CPT/HCPCS: 99212 ==

== ENCOUNTER 2022-12-20 19:40 | Inpatient (IN) | payer MEDICAID, SELFPAY ==
[2022-12-20] VITALS (7 sets, daily range): BP systolic 139–175; BP diastolic 68–90; PULSE 82–100; RESP 15–20; TEMP 36.6–36.8; O2SAT 80–91; BMI 35.5
--- NOTE | 2022-12-20 19:50 | ED.SOB ---
HPI - SOB/Dyspnea General Chief Complaint: Dyspnea Stated Complaint: COPD, on cpap Time Seen by Provider: 12/20/22 19:46 Source: patient and EMS Mode of arrival: EMS History of Present Illness HPI Narrative: 52-year-old female arrives via EMS for acute respiratory failure due to increased shortness of breath of the past few days administer several DuoNebs at home without relief, EMS provided steroids/magnesium/DuoNeb and patient was noted to have 80% O2 sats when EMS arrived. She is currently on CPAP and tachypneic. Related Data Home Medications Medication Instructions Recorded Confirmed albuterol sulfate 90 mcg/actuation 2 puff inhalation Q4H PRN 12/30/19 10/20/22 aerosol inhaler (ProAir HFA) Shortness Of Breath Or Wheezing loratadine 10 mg tablet (Claritin) 10 mg PO DAILY 12/30/19 10/20/22 montelukast 10 mg tablet 10 mg PO BEDTIME 12/30/19 10/20/22 diltiazem HCl 360 mg capsule,24 360 mg PO DAILY 11/16/20 10/20/22 hr,extended release (Tiadylt ER) roflumilast 500 mcg tablet 500 mcg PO DAILY 11/16/20 10/20/22 (Daliresp) rosuvastatin 5 mg tablet 5 mg PO BEDTIME 11/16/20 10/20/22 insulin lispro 100 unit/mL See Protocol subcut TIDAC 12/14/20 10/20/22 subcutaneous solution (Humalog U-100 Insulin) metformin 500 mg tablet,extended 1,000 mg PO BID 05/18/21 10/20/22 release 24 hr methadone 10 mg/mL oral concentrate 50 mg PO DAILY 06/06/21 10/20/22 lisinopril 40 mg tablet 40 mg PO DAILY 07/30/21 10/20/22 hydralazine 25 mg tablet 25 mg PO DAILY 11/02/21 10/20/22 insulin lispro 100 unit/mL 4 unit subcut TIDAC 11/02/21 10/20/22 subcutaneous solution clonazepam 1 mg tablet 1 mg PO BID PRN Anxiety 06/28/22 10/20/22 ibuprofen 600 mg tablet 600 mg PO Q8H PRN Pain 06/28/22 10/20/22 alendronate 70 mg tablet 70 mg PO QWEEK 07/29/22 10/20/22 lamotrigine 150 mg tablet 150 mg PO BID 07/29/22 10/20/22 lidocaine 5 % topical patch 1 patch topical DAILY 07/29/22 10/20/22 bupropion HCl 75 mg tablet 75 mg PO DAILY 09/30/22 10/20/22 calcitonin (salmon) 200 1 spray intranasal DAILY 09/30/22 10/20/22 unit/actuation nasal spray cholecalciferol (vitamin D3) 1,250 1,250 mcg PO 2XW 09/30/22 10/20/22 mcg (50,000 unit) capsule gabapentin 300 mg capsule 300 mg PO DAILY 09/30/22 10/20/22 insulin glargine 100 unit/mL 45 unit subcut BEDTIME 09/30/22 10/20/22 subcutaneous solution (Lantus U-100 Insulin) docusate sodium 100 mg capsule 100 mg PO BID PRN constipation 10/20/22 10/20/22 zolpidem 5 mg tablet 5 mg PO BEDTIME PRN Sleep 10/20/22 10/20/22 nebulizers 11/08/22 Previous Rx's Medication Instructions Recorded salmeterol 50 mcg/dose blister 1 inh inhalation RBID 30 days #60 01/05/22 powder for inhalation (Serevent ea Diskus) simethicone 80 mg chewable tablet 80 mg PO QIDWMHS PRN Abdominal 01/05/22 (Gas Relief (simethicone)) Distention #30 tabs theophylline 450 mg 450 mg PO Q12H 30 days #60 tabs 05/08/22 tablet,extended release,12 hr arformoterol 15 mcg/2 mL solution 2 ml inhalation Q12H 30 days #120 06/07/22 for nebulization (Brovana) mL tiotropium bromide 18 mcg capsule 1 cap inhalation DAILY #30 ea 07/09/22 with inhalation device (Spiriva with HandiHaler) budesonide 0.5 mg/2 mL suspension 0.5 mg (2 mL) inhalation BID #120 08/15/22 for nebulization mL ipratropium 0.5 mg-albuterol 3 mg 3 ml PO Q4H PRN for wheezing #540 09/02/22 (2.5 mg base)/3 mL nebulization mL soln sodium chloride 7 % for 4 ml inhalation BID #240 mL 07/07/23 nebulization omeprazole 40 mg capsule,delayed 40 mg PO DAILY@0630 30 days #30 09/24/22 release caps polyethylene glycol 3350 17 17 g PO DAILY PRN constipation 10/22/22 gram/dose oral powder (Miralax) #238 grams prednisone 20 mg tablet 40 mg (2 x 20 mg) PO DAILY #10 tabs 10/22/22 amoxicillin 875 mg-potassium 1 tab PO Q12H #20 tabs 10/29/22 clavulanate 125 mg tablet prednisone 10 mg tablet 10 mg PO DIRECTED #54 tabs 10/29/22 doxycycline monohydrate 100 mg 100 mg PO BID 21 days #42 tabs 11/08/22 tablet furosemide 20 mg tablet (Lasix) 20 mg PO DAILY 30 days #30 tabs 11/08/22 nicotine (polacrilex) 2 mg gum 2 mg buccal Q2H #100 ea 11/11/22 (Nicorette) prednisone 10 mg tablet 40 mg (4 x 10 mg) PO DAILY 30 days 11/13/22 #120 tabs sulfamethoxazole 400 1 tab PO DAILY #30 tabs 11/13/22 mg-trimethoprim 80 mg tablet (Bactrim) prednisone 20 mg tablet 40 mg (2 x 20 mg) PO DAILY #10 tabs 11/30/22 diclofenac sodium 1 % topical gel 2 g topical TID #100 grams 12/15/22 (Voltaren Arthritis Pain) lidocaine 5 % topical patch 1 patch topical DAILY #30 ea 12/15/22 acetazolamide 250 mg tablet 250 mg PO DAILY #3 tabs 12/19/22 azathioprine 50 mg tablet (Imuran) 100 mg (2 x 50 mg) PO DAILY 30 12/19/22 days #60 tabs biotin 10 mg tablet 10 mg PO DAILY 30 days #30 tabs 12/19/22 folic acid 1 mg tablet 1 mg PO DAILY 30 days #30 tabs 12/19/22 Allergies Allergy/AdvReac Type Severity Reaction Status Date / Time No Known Allergies Allergy Verified 12/20/22 19:54 [No Known Allergies*] Review of Systems Review of Systems: Pertinent positives and negatives as stated in HPI [facility] Past Medical History Source: nursing notes reviewed Medical History Bacteremia Acute and chronic respiratory failure with hypercapnia CHITO (obstructive sleep apnea) Morbid obesity Cor pulmonale Chronic constipation Cellulitis COPD mixed type Leukocytosis Aspiration into airway Pulmonary congestion Vomiting COPD exacerbation Acute respiratory failure Status asthmaticus with COPD (chronic obstructive pulmonary disease) Hypertensive cardiovascular disease Type 2 diabetes mellitus Morbid obesity Rib fractures Pulmonary nodule Abnormal chest x-ray Congestive heart failure Opioid dependence Limb swelling Abdominal pain Diabetes mellitus Chronic respiratory failure COPD (chronic obstructive pulmonary disease) Poor dentition Tobacco abuse Asthma-COPD overlap syndrome Hyperlipidemia, unspecified Essential hypertension Type 2 diabetes mellitus with unspecified complications Chronic respiratory failure Hypogammaglobulinemia Surgical History H/O tubal ligation Family History Family History Father Diabetes Other Asthma Social History Social History Household Members: Children Household Members Other:: daughter Housing: Apartment Do you presently have visiting nurse or other home services: Yes Unable to assess alcohol history related to: Unable to respond Alcohol intake: never Patient Tobacco Use Status: Former Tobacco user Quit Date: February 2022 Tobacco use type: Cigarette Cigarettes Per Day: 1 Years Smoked: 35 e-Cigarette/Vaping Use: Currently Using Second Hand Smoke Exposure: No Use of substances other than those prescribed or required for medical reasons: Unable to respond Substance Use Type: Opiates Advance Directives: Yes Advance Directives on File: Yes Advance Directives Date on File: 06/12/21 service: No Current occupational status: unemployed and disabled Physical Exam Vital Signs: Vital Signs: Last Vital Signs Temp 98.0 F 12/20/22 23:29 Pulse 97 12/20/22 23:29 Resp 16 12/20/22 23:29 BP 153/80 H 12/20/22 23:29 Pulse Ox 91 L 12/20/22 23:29 O2 Del Method BiPAP 12/20/22 23:29 O2 Flow Rate 28 12/20/22 23:29 BMI result Body Mass Index 35.5 VITAL SIGNS: Reviewed. GENERAL: Well developed, well nourished, in no acute distress. HEAD: Normocephalic/atraumatic EYES: PERRLA, EOMI EARS: Ext canals without abnormality NOSE: Nares patent bilateral OROPHARYNX: no oral lesions noted, posterior pharynx clear NECK: Supple, no adenopathy LUNGS: Tachypneic, decreased breath sounds bilaterally, increased work of breathing, CPAP in place, SpO2<85> CARDIOVASCULAR: Regular rate and rhythm without noted murmurs ABDOMEN: Soft, non-tender, non-distended with bowel sounds. MUSCULOSKELETAL: No tenderness, deformities, or effusions noted on gross inspection. EXTREMITIES: No cyanosis, clubbing or edema. SKIN: Inspection of the skin reveals no rashes NEUROLOGIC: Lethargic and oriented x 4. Strength and sensation to light touch were grossly intact x 4. Medications Administered Discontinued Medications Generic Name Dose Route Start Last Admin Trade Name Freq PRN Reason Stop Dose Admin Albuterol Sulfate 2.5 mg/ 5 mg 12/20/22 20:30 12/20/22 20:33 Albuterol Sulfate 2.5 mg INHALE 12/20/22 20:31 5 mg ONCE ONE Administration Albuterol Sulfate 7.5 mg/ 0 mg 12/20/22 19:55 12/20/22 19:56 Albuterol/Ipratropium 3 ml INHALE 12/20/22 19:56 1 each ONCE ONE Administration Cefepime HCl 1 gm/ Sodium 50 mls @ 100 mls/hr 12/20/22 21:17 12/20/22 21:57 Chloride IV 12/20/22 21:46 Infused ONCE ONE Infusion Medical Decision Making Medical Decision Making [facility] Narrative: 1939: 52-year-old female with history and clinical presentation, DDX: Acute respiratory failure secondary to COPD exacerbation/asthma, pneumonia, pulmonary edema. THERE ARE NO ICU BEDS. INTERVENTION: BiPAP, Matilde I reviewed all investigations and hematologic indices demonstrated a chronically elevated leukocytosis with left shift, however due to presentation I still treated patient with antibiotics after obtaining lactic acid and blood cultures. There is a chronically stable normocytic anemia, no thrombocytopenia. Coagulation studies within normal limits. VBG initially significant for respiratory acidosis with pH-7.28 and pCO2 of 97. Patient currently on BiPAP and on serial VBGs in conjunction with continued nebulized treatments there is significant improvement with resolution of respiratory acidosis and improvement in hypercapnia. Patient continues to demonstrate good oxygenation with SpO2 of 93%. Chemistry indices negative for VERONIKA and otherwise no electrolyte or liver enzyme abnormalities. BNP-16. Chest x-ray negative for infiltrate and otherwise my interpretation is in agreement with radiology's impression. EKG not significant for acute changes when compared to prior. There are no ICU beds and patient will continue to be monitored here in the emergency room with possible admission to the floor in the morning or placement in the ICU if she continues to require respiratory support. Differential Diagnosis Differential Diagnoses: The differential diagnosis associated with the presentation includes Please see the discussion above Admission/Observation Consideration of admission/observation: Escalation of care including admission/observation considered Please see the discussion above Lab Data MDM Lab Attestation statement: I reviewed the patient's lab results. Please see the discussion above 12/20/22 20:06 12/20/22 20:06 Labs: Lab Results 12/20/22 12/20/22 12/20/22 Range/Units 20:06 20:13 21:15 WBC 13.8 H (4.8-10.8) X10*3/uL RBC 4.02 L (4.20-5.50) X10*6/uL Hgb 11.5 L (12.0-16.0) g/dl Hct 38.7 (37.0-47.0) % MCV 96.3 (80.0-98.0) fL MCH 28.6 (27.0-33.0) pg MCHC 29.7 L (31.0-35.0) g/dl RDW 14.2 (11.0-16.0) % Plt Count 282 (160-400) X10*3/uL MPV 8.7 L (9.4-12.3) fL Immature Gran % (Auto) 0.7 H (0.0-0.4) % Neut % (Auto) 87.4 H (45-73) % Lymph % (Auto) 7.6 L (20-40) % Fergus % (Auto) 4.1 (2-11) % Eos % (Auto) 0.1 (0-4) % Baso % (Auto) 0.1 (0-2) % Lymph # (Auto) 1.0 L (1.2-4.9) X10*3/uL Fergus # (Auto) 0.6 (0.1-1.2) X10*3/uL Eos # (Auto) 0.0 (0.0-0.4) X10*3/uL Baso # (Auto) 0.0 (0.0-0.2) X10*3/uL Abs Immat Gran (auto) 0.09 H (0.00-0.03) X10*3/uL Absolute Neuts (auto) 12.0 H (2.0-8.3) x10*3/uL Absolute Nucleated RBC 0.000 (0.0-0.012) X10*3/uL Nucleated RBC % (auto) 0.0 (0.0-0.2) /100WBC PT 10.5 L (11.1-13.3) SEC INR 0.9 (0.9-1.1) VBG pH 7.28 L 7.36 (7.32-7.43) VBG pCO2 97 84 mmHg VBG pO2 52 168 mmHg VBG HCO3 46 H 48 H (22-26) mmol/L VBG O2 Saturation 78.0 99.0 % VBG Base Excess 15.0 18.5 mmol/L Sodium 141 (135-145) mmol/L Potassium 4.1 (3.3-5.1) mmol/L Chloride 93 L (96-108) mmol/L Carbon Dioxide 36 H (22-29) mmol/L Anion Gap 16 (12-20) BUN 17 H (9-16) mg/dL Creatinine 0.67 (0.5-1.4) mg/dL Estim Creat Clear Calc 105.1 Estimated GFR > 60 Random Glucose 155 H (60-115) mg/dL Lactic Acid 0.6 (0.5-2.0) mmol/L Calcium 9.6 D (8.4-10.2) mg/dL Total Bilirubin 0.2 (0.0-1.0) mg/dL AST 17 (5-31) U/L ALT 12 (0-31) U/L Alkaline Phosphatase 69 (39-117) U/L B-Natriuretic Peptide 16 (<100) pg/mL Total Protein 7.5 (6.5-8.0) g/dL Albumin 4.1 (3.5-5.0) g/dL 12/20/22 Range/Units 23:38 WBC (4.8-10.8) X10*3/uL RBC (4.20-5.50) X10*6/uL Hgb (12.0-16.0) g/dl Hct (37.0-47.0) % MCV (80.0-98.0) fL MCH (27.0-33.0) pg MCHC (31.0-35.0) g/dl RDW (11.0-16.0) % Plt Count (160-400) X10*3/uL MPV (9.4-12.3) fL Immature Gran % (Auto) (0.0-0.4) % Neut % (Auto) (45-73) % Lymph % (Auto) (20-40) % Fergus % (Auto) (2-11) % Eos % (Auto) (0-4) % Baso % (Auto) (0-2) % Lymph # (Auto) (1.2-4.9) X10*3/uL Fergus # (Auto) (0.1-1.2) X10*3/uL Eos # (Auto) (0.0-0.4) X10*3/uL Baso # (Auto) (0.0-0.2) X10*3/uL Abs Immat Gran (auto) (0.00-0.03) X10*3/uL Absolute Neuts (auto) (2.0-8.3) x10*3/uL Absolute Nucleated RBC (0.0-0.012) X10*3/uL Nucleated RBC % (auto) (0.0-0.2) /100WBC PT (11.1-13.3) SEC INR (0.9-1.1) VBG pH 7.43 (7.32-7.43) VBG pCO2 66 mmHg VBG pO2 68 mmHg VBG HCO3 44 H (22-26) mmol/L VBG O2 Saturation 94.0 % VBG Base Excess 16.9 mmol/L Sodium (135-145) mmol/L Potassium (3.3-5.1) mmol/L Chloride (96-108) mmol/L Carbon Dioxide (22-29) mmol/L Anion Gap (12-20) BUN (9-16) mg/dL Creatinine (0.5-1.4) mg/dL Estim Creat Clear Calc Estimated GFR Random Glucose (60-115) mg/dL Lactic Acid (0.5-2.0) mmol/L Calcium (8.4-10.2) mg/dL Total Bilirubin (0.0-1.0) mg/dL AST (5-31) U/L ALT (0-31) U/L Alkaline Phosphatase (39-117) U/L B-Natriuretic Peptide (<100) pg/mL Total Protein (6.5-8.0) g/dL Albumin (3.5-5.0) g/dL Independent Interpretation I performed an independent interpretation of an: EKG Interpretation: No changes when compared to 11/03/2022. Normal sinus rhythm, HR-99, no STEMI, NC/QTC are within normal limits, QRS-114. Radiology Impression Discussion of test interpretation with radiology: I have reviewed the radiologist's reading. Radiologist Impression: Please see the discussion above External Record Review External record reviewed: Outpatient record, Prior outpatient labs and Prior outpatient radiology Chronic Conditions Patient?s care impacted by: Hypertension and Other COPD Procedures EJ/Peripheral Line Arm R: Time Out Performed: Yes Skin Cleansed in Sterile Fashion: Yes Size (gauge): 20 IV Secured and Dressing Applied: Yes Patient Tolerated Procedure: well Additional Comments: This peripheral IV was started with ultrasound guidance. Critical Care Time Critical Care Time Critical Care Time: Yes Total Critical Care Time: 120 Attestation: I personally attest to this time spent taking care of the patient. Discharge Plan Discharge Clinical Impression: Acute on chronic respiratory failure with hypoxia and hypercapnia, COPD exacerbation Patient Disposition: Still a Patient Prescriptions: No Action Brovana 15 mcg/2 mL solution for nebulization 2 ml inhalation Q12H 30 Days Qty: 120 11RF Spiriva with HandiHaler 18 mcg capsule, w/inhalation device 1 cap inhalation DAILY Qty: 30 11RF budesonide 0.5 mg/2 mL suspension for nebulization 0.5 mg inhalation BID Qty: 120 11RF ipratropium-albuterol 0.5 mg-3 mg(2.5 mg base)/3 mL solution for nebulization 3 ml PO Q4H PRN (Reason: for wheezing) Qty: 540 6RF sodium chloride 7 % solution for nebulization 4 ml inhalation BID Qty: 240 11RF omeprazole 40 mg capsule,delayed release(DR/EC) 40 mg PO DAILY@0630 30 Days Qty: 30 6RF nicotine (polacrilex) [Nicorette] 2 mg gum 2 mg buccal Q2H Qty: 100 1RF diltiazem HCl [Tiadylt ER] 360 mg capsule,extended release 24 hr 360 mg PO DAILY rosuvastatin 5 mg tablet 5 mg PO BEDTIME roflumilast [Daliresp] 500 mcg tablet 500 mcg PO DAILY insulin lispro [Humalog U-100 Insulin] 100 unit/mL solution See Protocol subcut TIDAC Protocol: Insulin Correction Scale Less than or equal to 110 ---- Give (units): 0 111 to 150 Give (units): 0 151 to 200 Give (units): 2 201 to 250 Give (units): 4 251 to 300 Give (units): 6 301 to 350 Give (units): 8 Greater than 350 Give (units): 10 Call MD if Blood Glucose > : 350 metformin 500 mg tablet extended release 24 hr 1,000 mg PO BID hydralazine 25 mg tablet 25 mg PO DAILY insulin lispro 100 unit/mL solution 4 unit subcut TIDAC methadone 10 mg/mL Concentrate 50 mg PO DAILY lisinopril 40 mg tablet 40 mg PO DAILY Serevent Diskus 50 mcg/dose Blister With Device 1 inh inhalation RBID 30 Days Qty: 60 2RF simethicone [Gas Relief (simethicone)] 80 mg Tablet,Chewable 80 mg PO QIDWMHS PRN (Reason: Abdominal Distention) Qty: 30 0RF lamotrigine 150 mg tablet 150 mg PO BID alendronate 70 mg tablet 70 mg PO QWEEK lidocaine 5 % adhesive patch,medicated 1 patch topical DAILY Rx Instructions: APPLY FOR 12 HOURS THEN REMOVE FOR 12 HOURS bupropion HCl 75 mg tablet 75 mg PO DAILY cholecalciferol (vitamin D3) 1,250 mcg (50,000 unit) capsule 1,250 mcg PO 2XW calcitonin (salmon) 200 unit/actuation spray,non-aerosol 1 spray intranasal DAILY Rx Instructions: one nostril every day, alternate sides. insulin glargine [Lantus U-100 Insulin] 100 unit/mL solution 45 unit subcut BEDTIME gabapentin 300 mg capsule 300 mg PO DAILY docusate sodium 100 mg capsule 100 mg PO BID PRN (Reason: constipation) zolpidem 5 mg tablet 5 mg PO BEDTIME PRN (Reason: Sleep) polyethylene glycol 3350 [Miralax] 17 gram/dose powder 17 g PO DAILY PRN (Reason: constipation) Qty: 238 0RF prednisone 20 mg tablet 40 mg PO DAILY Qty: 10 0RF clonazepam 1 mg tablet 1 mg PO BID PRN (Reason: Anxiety) ibuprofen 600 mg tablet 600 mg PO Q8H PRN (Reason: Pain) prednisone 20 mg tablet 40 mg PO DAILY Qty: 10 0RF lidocaine 5 % adhesive patch,medicated 1 patch topical DAILY Qty: 30 0RF Rx Instructions: leave on most painful area for up to 12 hrs diclofenac sodium [Voltaren Arthritis Pain] 1 % gel 2 g topical TID Qty: 100 0RF Rx Instructions: apply to single elbow, wrist or hand; for hand includes palm/fingers/back of hand montelukast 10 mg tablet 10 mg PO BEDTIME albuterol sulfate [ProAir HFA] 90 mcg/actuation HFA aerosol inhaler 2 puff inhalation Q4H PRN (Reason: Shortness Of Breath Or Wheezing) loratadine [Claritin] 10 mg tablet 10 mg PO DAILY theophylline 450 mg tablet extended release 12 hr 450 mg PO Q12H 30 Days Qty: 60 6RF prednisone 10 mg tablet 40 mg PO DAILY 30 Days Qty: 120 2RF sulfamethoxazole-trimethoprim [Bactrim] 400-80 mg tablet 1 tab PO DAILY Qty: 30 4RF amoxicillin-pot clavulanate 875-125 mg tablet 1 tab PO Q12H Qty: 20 0RF prednisone 10 mg tablet 10 mg PO DIRECTED Qty: 54 0RF Rx Instructions: Take 6 tabs daily x 3 days, then 5 tabs x 3 days, then 4 tabs x 3 days, then 3 tabs x 3 days, then back to daily dose of 20 mg (DME) nebulizers Misc See Rx Instructions .ROUTE Rx Instructions: As directed furosemide [Lasix] 20 mg tablet 20 mg PO DAILY 30 Days Qty: 30 2RF doxycycline monohydrate 100 mg tablet 100 mg PO BID 21 Days Qty: 42 0RF azathioprine [Imuran] 50 mg tablet 100 mg PO DAILY 30 Days Qty: 60 6RF folic acid 1 mg tablet 1 mg PO DAILY 30 Days Qty: 30 6RF biotin 10 mg tablet 10 mg PO DAILY 30 Days Qty: 30 5RF acetazolamide 250 mg tablet 250 mg PO DAILY Qty: 3 0RF
--- NOTE | 2022-12-20 20:19 | MHC.EDTECH ---
Patient arrived by ambulance and placed on environmental monitoring specialist,vitals completed and patient was placed on Bipap this tech will change patient into hospital attire once patient is breathing better. RN aware
--- NOTE | 2022-12-20 20:41 | MHC.EDTECH ---
Hourly rounds and vitals completed and EKG taken.
--- NOTE | 2022-12-20 21:46 | MHC.EDTECH ---
Hourly rounds and vitals completed and patient's oxygen sats are at 85% RN Ema is aware. Call lu within reach
--- NOTE | 2022-12-20 23:30 | MHC.EDTECH ---
Hourly rounds and vitals completed, repeat VBG obtained and sent to lab.
[2022-12-21] VITALS (47 sets, daily range): BP systolic 114–175; BP diastolic 63–99; PULSE 64–700; RESP 9–25; TEMP 34–38.4; O2SAT 86–100; BMI 35.3
--- NOTE | 2022-12-21 01:00 | PC.NURSE ---
pt had an episode of n/v pt removed from bipap due to vomiting. pt given 4mg iv zofran. pt placed on oxymask @ 15lpm. respiratory contact and to bedside. sop2 88-96% oxymask titrated down to 7lpm this rn and RT remain at bedside 90-95% oxymask titrated to 5lpm per RT spo2 88-95% RT and this rn at bedside
--- NOTE | 2022-12-21 02:34 | MHC.EDTECH ---
Hourly rounds and vitals completed
--- NOTE | 2022-12-21 03:41 | MHC.EDTECH ---
Hourly rounds and vitals completed,Patient repositioned to comfort,and patient is currently in Cat Scan at this time.
--- NOTE | 2022-12-21 03:58 | MHC.EDTECH ---
Belongings list completed and shirt was cut off. Emptied patients Adan and urine output was [id number].
--- NOTE | 2022-12-21 04:31 | PM.CCHP ---
History of Present Illness Date of Service: 12/21/22 Attending physician on admission: Jens Pendleton Chief Complaint: dyspnea The patient is a 52-year-old woman with a past medical history of asthma COPD overlap syndrome, chronic? hypercarbic and hypoxic respiratory failure currently on 2l via [place] home oxygen,? diabetes mellitus, hypertension, hyperlipidemia, tobacco use, and Hypogammaglobulinemia on IVIG,? opioid dependence on methadone who presented to emergency department Via EMS with dyspnea. ? The patient reported worsening shortness of breath in the past few days administer several DuoNebs at home without relief, EMS provided steroids/magnesium/DuoNeb and patient was noted to have 80% O2 sats when EMS arrived.? On arrival to the emergency department patient was on CPAP,? and tachypneic.? She was placed on BiPAP which initially worked, but laterl patient became nauseous and vomited and required oxymask.? On OxyMask patient mental status worsened,? ABGs showing worsening hypoxic hypercapnic respiratory failure require emergent intubation in the emergency department.? ?Laboratory data significant for WBC? 13.8, chloride 93 and serum bicarb? 36, BUN 17 ?Vbgs as following? 7.19/108//42 ED course:? she received albuterol 7.5 mg x 2, ? cefepime 1 g? and zofran Review of Systems Review of Systems: Yes unobtainable due to endotracheal tube PMFSH Past Medical History Medical History (Updated 12/21/22 @ 05:04 by Shaniqua Sabillon NP) Aspiration into airway Congestive heart failure Bacteremia Acute and chronic respiratory failure with hypercapnia CHITO (obstructive sleep apnea) Morbid obesity Cor pulmonale Chronic constipation Cellulitis COPD mixed type Leukocytosis Pulmonary congestion Vomiting COPD exacerbation Acute respiratory failure Status asthmaticus with COPD (chronic obstructive pulmonary disease) Hypertensive cardiovascular disease Type 2 diabetes mellitus Morbid obesity Rib fractures Pulmonary nodule Abnormal chest x-ray Opioid dependence Limb swelling Abdominal pain Diabetes mellitus Chronic respiratory failure COPD (chronic obstructive pulmonary disease) Poor dentition Tobacco abuse Asthma-COPD overlap syndrome Hyperlipidemia, unspecified Essential hypertension Type 2 diabetes mellitus with unspecified complications Chronic respiratory failure Hypogammaglobulinemia Family History Family History Father Diabetes Other Asthma Surgical History Surgical History H/O tubal ligation Social History Social History Household Members: Unknown / Unable to assess Household Members Other:: daughter Housing: Apartment Do you presently have visiting nurse or other home services: Yes Unable to assess alcohol history related to: Unable to respond Alcohol intake: never Patient Tobacco Use Status: Former Tobacco user Quit Date: February 2022 Tobacco use type: Cigarette Cigarettes Per Day: 1 Years Smoked: 35 e-Cigarette/Vaping Use: Currently Using Second Hand Smoke Exposure: No Use of substances other than those prescribed or required for medical reasons: Unable to respond Substance Use Type: Opiates Currently Displaying Signs/Symptoms of Drug Intoxication Withdrawal: No Advance Directives: Yes Advance Directives on File: Yes Advance Directives Date on File: 06/12/21 Do you have thoughts of harming others: None Do you have a plan to hurt others: No Plan Recently lost weight without trying: Unsure Nutrition Risks: On aspiration precautions Patient : No service: No Current occupational status: unemployed and disabled Meds Allergies Allergy/AdvReac Type Severity Reaction Status Date / Time No Known Allergies Allergy Verified 12/20/22 19:54 [No Known Allergies*] Active Medications: Current Medications Chlorhexidine Gluconate (Chlorhexidine Gluc Oral Rinse 15 Ml Mouthwash) 15 ml BUCCAL TID ANA Enoxaparin Sodium (Enoxaparin Sodium 40 Mg/0.4 Ml Syringe) 40 mg SUBCUT Q24H ANA Propofol (Diprivan) 1,000 mg in 100 mls @ 0 mls/hr IVCONT .Q0M ANA; Protocol Last Titration: 12/21/22 04:22 Dose: 50 mcg/kg/min, 27.24 mls/hr Piperacillin Sod/Tazobactam (Sod 4.5 gm/ Sodium Chloride) 100 mls @ 200 mls/hr IV Q8H ANA Fentanyl (Sublimaze/Ns) 1,000 mcg in 100 mls @ 0 mls/hr IVCONT .Q0M ANA; Protocol Pantoprazole Sodium (Pantoprazole Sodium 40 Mg/10 Ml Vial) 40 mg IVPUSH DAILY ANA Home Medications Medication Instructions Recorded Confirmed Last Taken Type albuterol sulfate 90 mcg/actuation 2 puff inhalation Q4H PRN 12/30/19 12/21/22 07/28/22 23:10 History aerosol inhaler (ProAir HFA) Shortness Of Breath Or Wheezing loratadine 10 mg tablet (Claritin) 10 mg PO DAILY 12/30/19 12/21/22 12/20/22 History montelukast 10 mg tablet 10 mg PO BEDTIME 12/30/19 12/21/22 12/20/22 History diltiazem HCl 360 mg capsule,24 360 mg PO DAILY 11/16/20 12/21/22 12/20/22 History hr,extended release (Tiadylt ER) roflumilast 500 mcg tablet 500 mcg PO DAILY 11/16/20 12/21/22 12/20/22 History (Daliresp) rosuvastatin 5 mg tablet 5 mg PO BEDTIME 11/16/20 12/21/22 12/20/22 History metformin 500 mg tablet,extended 1,000 mg PO BID 05/18/21 12/21/22 12/20/22 History release 24 hr methadone 10 mg/mL oral concentrate 50 mg PO DAILY 06/06/21 10/20/22 12/20/22 History lisinopril 40 mg tablet 40 mg PO DAILY 07/30/21 12/21/22 12/20/22 History hydralazine 25 mg tablet 25 mg PO TIDWM 11/02/21 12/21/22 12/20/22 History insulin lispro 100 unit/mL 4 unit subcut TIDAC 11/02/21 12/21/22 12/20/22 History subcutaneous solution clonazepam 1 mg tablet 1 mg PO BID PRN Anxiety 06/28/22 12/21/22 Unknown History ibuprofen 600 mg tablet 600 mg PO Q8H PRN Pain 06/28/22 12/21/22 Unknown History alendronate 70 mg tablet 70 mg PO QWEEK 07/29/22 12/21/22 09/28/22 History lamotrigine 150 mg tablet 150 mg PO BID 07/29/22 12/21/22 12/20/22 History lidocaine 5 % topical patch 1 patch topical DAILY 07/29/22 12/21/22 12/20/22 History calcitonin (salmon) 200 1 spray intranasal DAILY 09/30/22 12/21/22 12/20/22 History unit/actuation nasal spray cholecalciferol (vitamin D3) 1,250 1,250 mcg PO SA@00 09/30/22 12/21/22 Unknown History mcg (50,000 unit) capsule gabapentin 300 mg capsule 300 mg PO BID 09/30/22 12/21/22 12/20/22 History insulin glargine 100 unit/mL 35 unit subcut BEDTIME 09/30/22 12/21/22 12/20/22 History subcutaneous solution (Lantus U-100 Insulin) docusate sodium 100 mg capsule 100 mg PO BID PRN constipation 10/20/22 12/21/22 Unknown History zolpidem 5 mg tablet 5 mg PO BEDTIME PRN Sleep 10/20/22 12/21/22 Unknown History nebulizers 11/08/22 12/21/22 12/20/22 History azathioprine 50 mg tablet (Imuran) 50 mg PO DAILY 12/21/22 12/21/22 12/20/22 History bupropion HCl 100 mg tablet 100 mg PO DAILY 12/21/22 12/21/22 12/20/22 History diclofenac potassium 50 mg tablet 50 mg PO TID PRN Pain 12/21/22 12/21/22 Unknown History polyethylene glycol 3350 17 17 g PO DAILY constipation 12/21/22 12/21/22 12/20/22 History gram/dose oral powder (Miralax) salmeterol 50 mcg/dose blister 1 inh inhalation BID 12/21/22 12/21/22 12/20/22 History powder for inhalation (Serevent Diskus) Physical Exam Vital Signs: Vital Signs: Last Vital Signs Temp 99.3 F 12/21/22 03:45 Pulse 110 H 12/21/22 04:10 Resp 24 H 12/21/22 04:10 BP 172/75 H 12/21/22 04:10 Pulse Ox 93 12/21/22 04:10 O2 Del Method Mechanical Ventil ation 12/21/22 03:45 O2 Flow Rate 100 12/21/22 03:45 BMI result Body Mass Index 35.5 Constitutional: patient is intubated Head: Normocephalic. Eyes: Pupils are equal, round and reactive to light. Extraocular muscles intact. Ear, Nose and Throat: Oropharynx clear, mucous membranes moist. trachea midlight Neck: Supple, Full range of motion. Respiratory: lungs diminished throughout.? on AC settings Cardiovascular: Sinus tach low 100s. S1 S2 regular. No murmurs, rubs or gallops. Gastrointestinal: Abdomen distended, but soft, Normal bowel sounds. Genitourinary: No costovertebral angle tenderness. Neurologic: No focal neurological deficits. Moves all extremities spontaneously. Skin:? scattered ecchymosis? Results Labs 12/21/22 06:06 12/21/22 06:06 Labs: Laboratory Results - last 24 hr 12/20/22 12/20/22 12/20/22 20:06 20:13 21:15 MCV 96.3 MCH 28.6 MCHC 29.7 L RDW 14.2 Plt Count 282 MPV 8.7 L Immature Gran % (Auto) 0.7 H Neut % (Auto) 87.4 H Lymph % (Auto) 7.6 L Smith % (Auto) 4.1 Eos % (Auto) 0.1 Baso % (Auto) 0.1 Lymph # (Auto) 1.0 L Smith # (Auto) 0.6 Eos # (Auto) 0.0 Baso # (Auto) 0.0 Abs Immat Gran (auto) 0.09 H Absolute Neuts (auto) 12.0 H Absolute Nucleated RBC 0.000 Nucleated RBC % (auto) 0.0 PT 10.5 L INR 0.9 VBG pH 7.28 L 7.36 VBG pCO2 97 84 VBG pO2 52 168 VBG HCO3 46 H 48 H VBG O2 Saturation 78.0 99.0 VBG Base Excess 15.0 18.5 Anion Gap 16 Estim Creat Clear Calc 105.1 Estimated GFR > 60 Random Glucose 155 H Lactic Acid 0.6 Calcium 9.6 D Total Bilirubin 0.2 AST 17 ALT 12 Alkaline Phosphatase 69 B-Natriuretic Peptide 16 Total Protein 7.5 Albumin 4.1 Urine Color Urine Appearance Urine pH Ur Specific [place] Urine Protein Urine Glucose (UA) Urine Ketones Urine Blood Urine Nitrite Ur Leukocyte Esterase 12/20/22 12/21/22 12/21/22 23:38 02:26 02:30 MCV MCH MCHC RDW Plt Count MPV Immature Gran % (Auto) Neut % (Auto) Lymph % (Auto) Smith % (Auto) Eos % (Auto) Baso % (Auto) Lymph # (Auto) Smith # (Auto) Eos # (Auto) Baso # (Auto) Abs Immat Gran (auto) Absolute Neuts (auto) Absolute Nucleated RBC Nucleated RBC % (auto) PT INR VBG pH 7.43 7.19 L* VBG pCO2 66 108 VBG pO2 68 90 VBG HCO3 44 H 42 H VBG O2 Saturation 94.0 96.0 VBG Base Excess 16.9 9.4 Anion Gap Estim Creat Clear Calc Estimated GFR Random Glucose Lactic Acid Calcium Total Bilirubin AST ALT Alkaline Phosphatase B-Natriuretic Peptide Total Protein Albumin Urine Color Yellow Urine Appearance Turbid Urine pH 8.5 Ur Specific [place] 1.015 Urine Protein Negative Urine Glucose (UA) Negative Urine Ketones Negative Urine Blood Negative Urine Nitrite Negative Ur Leukocyte Esterase Negative Imaging Radiologist's Impressions: Impressions Chest X-Ray 12/20/22 20:20 IMPRESSION: 1. There is pulmonary vascular congestion, without overt congestive heart clear. 2. No focal infiltrate is seen. Chest X-Ray 12/21/22 03:17 IMPRESSION: Low lung volumes limits evaluation. Endotracheal and gastric tubes in place. Lower lung field increased markings probably chronic and/or technical. Assessment and Plan (1) COPD exacerbation: Status: Acute (2) Acute on chronic respiratory failure with hypoxia and hypercapnia: Status: Acute (3) Aspiration into airway: Status: Acute (4) Constipation: Status: Acute Plan 52-year-old female? with asthma COPD overlap syndrome, chronic hypoxic and hypercapnic respiratory failure on home O2,? who presented to the emergency room with worsening dyspnea,? requiring emergent intubation being admitted to the ICU for acute respiratory failure Plan: Neuro:? No acute issues. Cardiac:?? Pulmonary congestion:? and chest x-ray patient is shown to have some congestion.? She has chronic elevated bicarb, Will give diamox.? Monitor for diuresing Pulmonary:?? acute hypoxic and hypercapnic respiratory failure secondary to COPD exacerbation.? She is chronically on prednisone,? received systemic glucocorticoids en route to hospital. Will cont? systemic? glucocorticoids, nebulized bronchodilators and Diamox.? ?? Aspiration vs pna- ? patient vomited prior to intubation,? likely aspirated into airway.? Will broaden coverage with IV Zosyn.? No evidence of severe sepsis as lactic acid is negative? Renal:? No acute issues.?? Endo:? No acute issues.?? GI:?Ileus ? :? patient was noted to have? significant amount? gastric? output? from OG tube.? CT of the abdomen is pending.? Will continue with low wall suction ID:? ?Mild leukocytosis,? this is likely due to chronic steroid.? Had possible aspiration during intubation. Being cover with empiric antibiotic Heme/Onc:? No acute issues. Psych:? No acute issues. Miscellaneous:? No acute issues. Prophylaxis:? lovenox,? IV PPI Critical care time spent:? 60 minutes Case discussed with Dr Pendleton? Time Spent With Patient Time: Total time managing care of this patient today ____ minutes.
--- NOTE | 2022-12-21 05:22 | PC.NURSE ---
0245- This Rn, RT, and Dr Araay at bedside. per dr araya pt to be intubated at this time. 0250- BP 137/67 HR 115 87% BVM 0252 etomidate 20mg IVP given 0252 rocuronium 120mg ivp given 0253 NS 1 LT infusing BP 126/63 HR 116 [address] araya, 7.5 ett 23 @ the lip 0254 OGT 18F placed by dr araya etco2 91 bp 124/70 HR 117 100% 0309- propofol gtt started @ 30mcg/kg/min jimenez placed F16 temp sensing immediate output of 875ml bp 147/91 hr 126 92% core temp 98.8 0312 xray at bedside performed 0400 18g iv in L AC infiltrated. one iv line accessible. [address] additional line by this rn and additional rn. this rn made icu provider, ed provider, and agriculture laboratory technician aware of inability to replace iv line 0410 pt sedation noted to not be sufficient, biting on suction, twitching, bucking tube, increased restlessness 0412 per icu pa increased propofol to 50mcg/kg/min 0416 pt noted to continue restlessness increased secretion production, and bucking tube. per icu pa versed 2mg ivp given 0425 continued restlessness jaqueline icu pa made aware orders placed. 0436 fentanyl gtt infusing @ 25. 0440 continued restlessness per icu pa 2mg ivp versed icu pa at bedside prior to transport to bed assignment. this rn, additional rn, and RT at bedside for transport
--- NOTE | 2022-12-21 05:46 | PC.NURSE ---
this rn unable to initiate antibiotic prior to pt transport to icu bed assignment. iv access limited to 20g IV in R AC. after previous 18g IV in L AC infiltrated multiple attempts made by this rn and additional rn to replace iv. this rn made ed provider, horticulture instructor, and icu pa aware
--- NOTE | 2022-12-21 05:50 | PC.NURSE ---
this rn unable to scan 0440 versed 2mg ivp prior to pt leaving for bed assignment in icu. pt given versed 2mg ivp @ 0440. this rn had to manually document med given. this rn made clinical coordinator aware
--- NOTE | 2022-12-21 06:00 | W.PM.CCHP ---
Procedures Date of Service Date of Service: 12/21/22 <Shaniqua Sabillon NP - Last Filed: 12/21/22 06:01> 12/21/22 <Jens Pendleton MD - Last Filed: 12/21/22 14:50> Central Line Placement Right IJ: Central Line Comments: Right internal jugular triple lumen central venous catheter placed in usual sterile conditions under ultrasound guidance for appropriate vascular access without immediate complications. Central line position verified with Chest XRAY. <Shaniqua Sabillon NP - Last Filed: 12/21/22 06:01> Consent for Procedure: Emergent-no informed consent obtained <Shaniqua Sabillon NP - Last Filed: 12/21/22 06:01> Time out performed: Yes <Shaniqua Sabillon NP - Last Filed: 12/21/22 06:01> Sterile Technique Used: Yes <Shaniqua Sabillon NP - Last Filed: 12/21/22 06:01> Patient placed on monitor/pulse ox: Yes <Shaniqua Sabillon NP - Last Filed: 12/21/22 06:01> prep: mask, gown and gloves <Shaniqua Sabillon NP - Last Filed: 12/21/22 06:01> Central line prep: Povidone-Iodine 1% <Shaniqua Sabillon NP - Last Filed: 12/21/22 06:01> Ultrasound used for placement: Yes <Shaniqua Sabillon NP - Last Filed: 12/21/22 06:01> Central line lumen inserted: triple <Shaniqua Sabillon NP - Last Filed: 12/21/22 06:01> Post procedure: sutured in place, good blood return, all ports aspirated, flushed, capped and sterile dressing applied <Shaniqua Sabillon NP - Last Filed: 12/21/22 06:01> Post procedure x-ray: tip of catheter in good position <Shaniqua Sabillon NP - Last Filed: 12/21/22 06:01> Patient tolerated procedure: well and no complications <Shaniqua Sabillon NP - Last Filed: 12/21/22 06:01> Complications: none <Shaniqua Sabillon NP - Last Filed: 12/21/22 06:01>
--- NOTE | 2022-12-21 07:01 | PC.NURSE ---
Pt arrived to ICU at approx 0500 from ED. Upon initial assessment, pt intubated/ sedated. Propofol gtt and Fentanyl gtts titrated per protocol. ETT 7.5, 24 @ lip. ACVC+ settings. NSR/ST on tele. OGT to low intermittent suction- draining small amount light green bile. Adan in place. Urine output as charted. No BM, faint BS, abd large/round/distended. Skin intact. TLC to R IJ placed by VALVE ASSEMBLER, placement confirmed by XR.
--- NOTE | 2022-12-21 07:32 | PHA.PROG ---
Admission Date/Time: December 21, 2022 03:49 Indication: OTHER Weight in k.4 kg Adjusted body weight in Kg: [place] body weight in Kg: Obesity Dosing Indication % IBW: Serum Creatinine - Last 168 Hours 12/20/22 12/21/22 20:06 06:06 Creatinine 0.67 0.71 Estimated CrCl and GFR - Last 168 Hours 12/20/22 12/21/22 20:06 06:06 Estim Creat Clear Calc 105.1 98.9 Estimated GFR > 60 > 60 Vancomycin Loading Dose: 2000 MG Current Vancomycin Dosing Regimen: 1250MG Q12H Vancomycin Monitoring using AUC goal of 400 - 600 range with trough as surrogate marker: AUC 514, TROUGH 15.8 Date and Time for next Vancomycin Level to be drawn: 12/22 @1600 Pharmacist Comments on Vancomycin Plan: - DID NOT PUT IN DAILY SCR WHILE PT IN ICU THEY DRAW LABS QAM Vancomycin dosing will take advantage of [employer] as a clinical decision support tool that uses Bayesian modeling to calculate individual patient's pharmacokinetic parameters and forecast the patient's drug concentration time course with the target goal AUC 24 range of 400 - 600 mg/L/hr.
--- NOTE | 2022-12-21 10:23 | MHC.CM.PN ---
Addendum entered by Donna Caal 12/21/22 10:29: DAUGHTER/ROUTING EQUIPMENT TENDER CAN TRANSPORT HOME ON DC. CM WILL CONTINUE TO FOLLOW FOR ANY CHANGES IN DC NEEDS/PLAN. Original Note: PT IS CURRENTLY INTUBATED AND SEDATED ICU. CM SPOKE WITH DAUGHTER/ROUTING EQUIPMENT TENDER HEATHER WHO PROVIDES 20 HRS/WK ROUTING EQUIPMENT TENDER SERVICES (DAY). PT USES WALKER/W/C FOR MOBILITY. HAS MODIFIED BR (GRAB BARS, RAISED TOILET SEAT) PER DAUGHTER, NURSE BRINGS HER METHADONE TO HER (SHE BELIEVES IT IS THROUGH [employer]) RETURN REFERRAL TO BE SENT. PT USES CPAP FOR / AT 2.5/3 L CONTINUOUS (VENDOR IS [facility]) NO COVID VAX. + HCP ON FILE ([facility] [phone]) AND THIS CM NOTIFIED HER OF ADMISSION, SHE WAS AWARE. PCP DR. SANTILLAN AT [facility]. DP: TO BE DETERMINED, ANTICIPATED HOME WITH RESUMPTION OF ROUTING EQUIPMENT TENDER/VNA/
--- NOTE | 2022-12-21 10:40 | PHA.MEDREC ---
Pharmacy Consult ? Medication Reconciliation Pharmacy has completed the medication reconciliation. Spoke to patient's visiting nurse Maggie ([phone]) from [employer] to confirm patients meds. Per visiting nurse, patient gets methadone 50mg daily, in which nurse picks up dose from [facility] ([phone]) and administers to patient. Patient's nurse does not know which day of the week alendronate is to be given, however.
--- NOTE | 2022-12-21 14:50 | PM.CCPN ---
Subjective Subjective Date of Service: 12/21/22 Interval History: If 52-year-old morbidly obese type 2 diabetic with hypogammaglobulinemia getting regular infusions of IV IG presents with 1 of many many many COPD exacerbations muscle no apparent and pneumonia nor any sign of CHF on a CT scan but she came in with acute on chronic hypercarbic and hypoxic respiratory failure did well on BiPAP advanced developed nausea vomiting and so she needed to be intubated she has been doing beautifully end-tidal CO2 in the mid to high 30s with pCO2 in the mid to high 40s and minute ventilatory requirements had dropped down being a bit below 10 L and FiO2 will also wean down to below 40% and we started weaning process and she woke up appropriately with good cognitive function remains on a small dose of dexmedetomidine and we weaned her down to a pressure support level of 10/5 maintaining tidal volumes in the mid 300s and I am hoping to be able to extubate her today probably will need to be temporized on BiPAP this is likely if Infectious seen a to be related to possibly an upper respiratory issue not pneumonia secondary acute cor pulmonale with a little bit of volume overload which she diuresed beautifully because of the ventilator with well-preserved LV function Critical Care Time (minutes): 45 Physical Exam Vital Signs: Vital Signs: Last Vital Signs Temp 100.9 F H 12/21/22 14:00 Pulse 112 H 12/21/22 14:00 Resp 24 H 12/21/22 14:00 BP 141/79 H 12/21/22 14:00 Pulse Ox 93 12/21/22 14:00 O2 Del Method Mechanical Ventil ation 12/21/22 14:00 O2 Flow Rate 100 12/21/22 03:45 FiO2 30 12/21/22 14:00 BMI result Body Mass Index 35.3 awake and appropriate nonfocal neurologically good bilateral carotid upstrokes no neck vein distension quiet precordium no peripheral edema no skin breakdown no acrocyanosis abdomen is distended and she was somewhat obstipated looking at the abdominal film but there was no evidence of mechanical obstruction there was no ileus and she was able to have a bowel movement and we were able to despite her very rotund build we were able to set her up properly to be able to drop the weight of the abdominal contents to give her better diaphragmatic function lungs she had still has but some bilateral expiratory wheeze but otherwise diminished bilateral breath sounds Objective Data Labs 12/22/22 05:35 12/22/22 05:35 Labs: Laboratory Results - last 24 hr 12/20/22 12/20/22 12/20/22 20:06 20:13 21:15 WBC 13.8 H RBC 4.02 L Hgb 11.5 L Hct 38.7 MCV 96.3 MCH 28.6 MCHC 29.7 L RDW 14.2 Plt Count 282 MPV 8.7 L Immature Gran % (Auto) 0.7 H Neut % (Auto) 87.4 H Lymph % (Auto) 7.6 L [place] % (Auto) 4.1 Eos % (Auto) 0.1 Baso % (Auto) 0.1 Lymph # (Auto) 1.0 L [place] # (Auto) 0.6 Eos # (Auto) 0.0 Baso # (Auto) 0.0 Abs Immat Gran (auto) 0.09 H Absolute Neuts (auto) 12.0 H Absolute Nucleated RBC 0.000 Nucleated RBC % (auto) 0.0 Smear Tech's Comments Hold Purple Top PT 10.5 L INR 0.9 VBG pH 7.28 L 7.36 VBG pCO2 97 84 VBG pO2 52 168 VBG HCO3 46 H 48 H VBG O2 Saturation 78.0 99.0 VBG Base Excess 15.0 18.5 Sodium 141 Potassium 4.1 Chloride 93 L Carbon Dioxide 36 H Anion Gap 16 BUN 17 H Creatinine 0.67 Estim Creat Clear Calc 105.1 Estimated GFR > 60 POC Glucose Random Glucose 155 H Lactic Acid 0.6 Calcium 9.6 D Phosphorus Magnesium Total Bilirubin 0.2 AST 17 ALT 12 Alkaline Phosphatase 69 B-Natriuretic Peptide 16 Total Protein 7.5 Albumin 4.1 Hold Yellow Top Urine Color Urine Appearance Urine pH Ur Specific [place] Urine Protein Urine Glucose (UA) Urine Ketones Urine Blood Urine Nitrite Ur Leukocyte Esterase 12/20/22 12/21/22 12/21/22 23:38 02:26 02:30 WBC RBC Hgb Hct MCV MCH MCHC RDW Plt Count MPV Immature Gran % (Auto) Neut % (Auto) Lymph % (Auto) [place] % (Auto) Eos % (Auto) Baso % (Auto) Lymph # (Auto) [place] # (Auto) Eos # (Auto) Baso # (Auto) Abs Immat Gran (auto) Absolute Neuts (auto) Absolute Nucleated RBC Nucleated RBC % (auto) Smear Tech's Comments Hold Purple Top PT INR VBG pH 7.43 7.19 L* VBG pCO2 66 108 VBG pO2 68 90 VBG HCO3 44 H 42 H VBG O2 Saturation 94.0 96.0 VBG Base Excess 16.9 9.4 Sodium Potassium Chloride Carbon Dioxide Anion Gap BUN Creatinine Estim Creat Clear Calc Estimated GFR POC Glucose Random Glucose Lactic Acid Calcium Phosphorus Magnesium Total Bilirubin AST ALT Alkaline Phosphatase B-Natriuretic Peptide Total Protein Albumin Hold Yellow Top Urine Color Yellow Urine Appearance Turbid Urine pH 8.5 Ur Specific [place] 1.015 Urine Protein Negative Urine Glucose (UA) Negative Urine Ketones Negative Urine Blood Negative Urine Nitrite Negative Ur Leukocyte Esterase Negative 12/21/22 12/21/22 12/21/22 05:06 06:06 07:27 WBC 16.7 H RBC 3.76 L Hgb 11.0 L Hct 36.3 L MCV 96.5 MCH 29.3 MCHC 30.3 L RDW 13.9 Plt Count 244 MPV 9.2 L Immature Gran % (Auto) 1.3 H Neut % (Auto) 92.3 H Lymph % (Auto) 1.4 L [place] % (Auto) 4.7 Eos % (Auto) 0.0 Baso % (Auto) 0.3 Lymph # (Auto) 0.2 L [place] # (Auto) 0.8 Eos # (Auto) 0.0 Baso # (Auto) 0.1 Abs Immat Gran (auto) 0.22 H Absolute Neuts (auto) 15.4 H Absolute Nucleated RBC 0.000 Nucleated RBC % (auto) 0.0 Smear Tech's Comments VERIFIED Hold Purple Top SEE NOTE PT INR VBG pH 7.44 H VBG pCO2 58 VBG pO2 47 VBG HCO3 40 H VBG O2 Saturation 81.0 VBG Base Excess 14.3 Sodium 139 Potassium 4.1 Chloride 96 Carbon Dioxide 33 H Anion Gap 14 BUN 21 H Creatinine 0.71 Estim Creat Clear Calc 98.9 Estimated GFR > 60 POC Glucose 328 H Random Glucose 339 H Lactic Acid Calcium 8.8 D Phosphorus 1.2 L Magnesium 1.7 Total Bilirubin AST ALT Alkaline Phosphatase B-Natriuretic Peptide Total Protein Albumin Hold Yellow Top See Note Urine Color Urine Appearance Urine pH Ur Specific [place] Urine Protein Urine Glucose (UA) Urine Ketones Urine Blood Urine Nitrite Ur Leukocyte Esterase 12/21/22 12:31 WBC RBC Hgb Hct MCV MCH MCHC RDW Plt Count MPV Immature Gran % (Auto) Neut % (Auto) Lymph % (Auto) [place] % (Auto) Eos % (Auto) Baso % (Auto) Lymph # (Auto) [place] # (Auto) Eos # (Auto) Baso # (Auto) Abs Immat Gran (auto) Absolute Neuts (auto) Absolute Nucleated RBC Nucleated RBC % (auto) Smear Tech's Comments Hold Purple Top PT INR VBG pH VBG pCO2 VBG pO2 VBG HCO3 VBG O2 Saturation VBG Base Excess Sodium Potassium Chloride Carbon Dioxide Anion Gap BUN Creatinine Estim Creat Clear Calc Estimated GFR POC Glucose 230 H Random Glucose Lactic Acid Calcium Phosphorus Magnesium Total Bilirubin AST ALT Alkaline Phosphatase B-Natriuretic Peptide Total Protein Albumin Hold Yellow Top Urine Color Urine Appearance Urine pH Ur Specific [place] Urine Protein Urine Glucose (UA) Urine Ketones Urine Blood Urine Nitrite Ur Leukocyte Esterase Microbiology Microbiology Results: Microbiology 12/21/22 05:25 Sputum - Suctioned Gram Stain - Final Progress Note: A&P Assessment and plan (1) Congestive heart failure: Status: Acute (2) Aspiration into airway: Status: Acute (3) COPD exacerbation: Status: Acute (4) Acute on chronic respiratory failure with hypoxia and hypercapnia: Status: Acute (5) Tobacco abuse: Status: Acute (6) Hypogammaglobulinemia: Status: Acute (7) Left leg swelling: Status: Acute (8) Constipation: Status: Acute (9) Asthma with exacerbation: Status: Acute (10) Hypercapnic respiratory failure: Status: Acute (11) Asthma-COPD overlap syndrome: Status: Acute (12) Salmonella gastroenteritis: Status: Acute (13) Pulmonary nodule: Status: Acute (14) Pleuritic chest pain: Status: Acute (15) Obesity with alveolar hypoventilation: Status: Acute Plan plan is to continue the above antibiotics somewhat enhanced only because of her additional concern of the hypogammaglobulinemia and of course IgG IgA IgM levels are all pending and we have no record here as to when she got her last infusion so I await those before ordering IV IG she is not quite do a demonstrating the need for IV aminophylline she seems to be doing well a more aggressive nebulized bronchodilator therapy and stress dose steroids Quality Stroke Does the patient have a stroke diagnosis?: No VTE Prior VTE?: No VTE Risk Level:: Medical - moderate - high VTE Device Contraindication: N/A - Device Ordered VTE Drug Contraindication: N/A - Med Ordered
[2022-12-22] VITALS (43 sets, daily range): BP systolic 127–186; BP diastolic 48–103; PULSE 90–123; RESP 14–26; TEMP 34.4–37.7; O2SAT 90–97; BMI 36.0
[2022-12-22 06:18] LABS: Venous Blood Gas Refer to POC result
[2022-12-22 06:19] LABS: Basophils Percent Auto 0.2 % (0-2); Hematocrit 35.5 % (37.0-47.0); Hemoglobin 11.1 g/dl (12.0-16.0); Imm Gran Abs Auto 0.18 X10*3/uL (0.00-0.03); Imm Gran Pct Auto 1.2 % (0.0-0.4); Lymphocytes Absolute Auto 0.3 X10*3/uL (1.2-4.9); Lymphocytes Percent Auto 1.8 % (20-40); MANUAL DIFF FLAG SCAN; Mean Corpuscular HGB Conc 31.3 g/dl (31.0-35.0); Mean Corpuscular Hemoglobin 28.8 pg (27.0-33.0); Mean Platelet Volume 9.6 fL (9.4-12.3); Monocytes Absolute Auto 0.4 X10*3/uL (0.1-1.2); Monocytes Percent Auto 2.5 % (2-11); Neutrophils Absolute Auto 14.3 x10*3/uL (2.0-8.3); Neutrophils Percent Auto 94.3 % (45-73); Platelet Count 279 X10*3/uL (160-400); Red Blood Count 3.86 X10*6/uL (4.20-5.50); Red Cell Distribution Width 13.8 % (11.0-16.0); SCAN SMEAR FLAG 1; White Blood Count 15.2 X10*3/uL (4.8-10.8)
[2022-12-22 06:34] LABS: Alanine Aminotransferase 10 U/L (0-31); Albumin Level 3.5 g/dL (3.5-5.0); Alkaline Phosphatase 59 U/L (39-117); Anion Gap 16 (12-20); Aspartate Amino Transferase 10 U/L (5-31); Bilirubin Total 0.3 mg/dL (0.0-1.0); Blood Urea Nitrogen 24 mg/dL (9-16); Calcium 8.9 mg/dL (8.4-10.2); Carbon Dioxide 28 mmol/L (22-29); Chloride 101 mmol/L (96-108); Creatinine Clr Calc Pharmacy 95.8; Estimated Glomerular Filt Rate > 60; Glucose Random 312 mg/dL (60-115); Magnesium 1.7 mg/dL (1.6-2.6); Phosphorus 3.6 mg/dL (2.7-4.5); Potassium 3.1 mmol/L (3.3-5.1); Sodium 142 mmol/L (135-145); Total Protein 6.6 g/dL (6.5-8.0)
[2022-12-22 06:46] LABS: SLIDE REVIEW VERIFIED
[2022-12-22 15:05] LABS: Adenovirus PCR Not Detected (Not Detect.); Bordetella parapertussis PCR Not Detected (Not Detect.); Bordetella pertussis PCR Not Detected (Not Detect.); Chlamydia pneumoniae PCR Not Detected (Not Detect.); Coronavirus 229E PCR Not Detected (Not Detect.); Coronavirus HKU1 PCR Not Detected (Not Detect.); Coronavirus NL63 PCR Not Detected (Not Detect.); Coronavirus OC43 PCR Not Detected (Not Detect.); Human metapneumovirus PCR Not Detected (Not Detect.); Influenza A PCR Not Detected (Not Detect.); Influenza B PCR Not Detected (Not Detect.); Mycoplasma pneumoniae PCR Not Detected (Not Detect.); Parainfluenza 1 PCR Not Detected (Not Detect.); Parainfluenza 2 PCR Not Detected (Not Detect.); Parainfluenza 3 PCR Not Detected (Not Detect.); Parainfluenza 4 PCR Not Detected (Not Detect.); RSV PCR Not Detected (Not Detect.); Rhino/Enterovirus PCR Not Detected (Not Detect.)
[2022-12-22 15:31] LABS: SARS-CoV-2 PCR Not Detected (Not Detect.)
--- NOTE | 2022-12-22 15:58 | PM.CCPN ---
Subjective Subjective Date of Service: 12/22/22 Interval History: 52-year-old morbidly obese type 2 diabetic and hypertensive female admitted for 1 of many many episodes of acute exacerbation of COPD and her obesity / hypoventilation with acute on chronic hypercarbic and hypoxic respiratory failure but this time because of vomiting and intolerant of the BiPAP mechanism requiring intubation for 24 hours that worked very successfully with aggressive bronchodilator and steroid therapy antibiotic coverage although she has no evidence of a lower respiratory tract infection and that today we lifted sedation she did well she is methadone dependent we finally just an hour ago gave her a dose of that but otherwise she was on multiple sedatives and a boil down to just keeping her on dexmedetomidine p.r.n. Versed and even weaning her down to pressure support of 10/5 her minute ventilatory requirements were greatly improved her FiO2 was down at about 30% and she maintained tidal volumes of 350-400 cc on 10/5 pressure support and we was successful in extubation without any problem she had great cognitive function she approached and very calmly it worked beautifully we did this about an hour after the methadone was given to her which was a big help she diuresed beautifully as a result of the positive-pressure maintenance therapy metabolically remained excellent Critical Care Time (minutes): 45 Physical Exam Vital Signs: Vital Signs: Last Vital Signs Temp 99.1 F 12/22/22 15:00 Pulse 107 H 12/22/22 15:00 Resp 21 H 12/22/22 15:00 BP 171/91 H 12/22/22 15:00 Pulse Ox 93 12/22/22 15:00 O2 Del Method Mechanical Ventil ation 12/22/22 15:00 O2 Flow Rate 100 12/21/22 03:45 FiO2 30 12/22/22 15:00 BMI result Body Mass Index 36.0 pressures are 150/89 sinus tachycardia 116 oxygen saturation 95% she is on nominal BiPAP at 12/6 neurologically she is intact cardiac exam by echo LV function is excellent abdomen soft no organomegaly good bilateral carotid upstrokes no neck vein distension doing very very well Objective Data Labs 12/22/22 05:35 12/22/22 05:35 Labs: Laboratory Results - last 24 hr 12/21/22 12/21/22 12/21/22 17:46 20:03 23:31 WBC RBC Hgb Hct MCV MCH MCHC RDW Plt Count MPV Immature Gran % (Auto) Neut % (Auto) Lymph % (Auto) [place] % (Auto) Eos % (Auto) Baso % (Auto) Lymph # (Auto) [place] # (Auto) Eos # (Auto) Baso # (Auto) Abs Immat Gran (auto) Absolute Neuts (auto) Absolute Nucleated RBC Nucleated RBC % (auto) Smear Tech's Comments VBG pH VBG pCO2 VBG pO2 VBG HCO3 VBG O2 Saturation VBG Base Excess Sodium 141 Potassium 3.1 L D Chloride 102 Carbon Dioxide 28 Anion Gap 14 BUN 20 H Creatinine 0.68 Estim Creat Clear Calc 103.3 Estimated GFR > 60 POC Glucose 213 H 151 H Random Glucose 171 H Calcium 9.2 Phosphorus 1.4 L Magnesium 1.8 Total Bilirubin AST ALT Alkaline Phosphatase Total Protein Albumin Respiratory Panel Holder Adenovirus (Rapid PCR) B.pert (TEM-PCR) B.parapertussis DNA PCR C. pneumoniae DNA (PCR) Coronavirus OC43 (PCR) Coronavirus HKU1 (PCR) Coronavirus 229E (PCR) Coronavirus NL63 (PCR) Human Metapneumovir PCR Influenza A (RT-PCR) Influenza B (RT-PCR) M. pneumoniae (PCR) Parainfluenza 1 (PCR) Parainfluenza 2 (PCR) Parainfluenza 3 (PCR) Parainfluenza 4 (PCR) RSV (PCR) Entero/Rhino (PCR) SARS-CoV-2 RNA (RT-PCR) 12/22/22 12/22/22 12/22/22 05:35 05:55 11:56 WBC 15.2 H RBC 3.86 L Hgb 11.1 L Hct 35.5 L MCV 92.0 MCH 28.8 MCHC 31.3 RDW 13.8 Plt Count 279 MPV 9.6 Immature Gran % (Auto) 1.2 H Neut % (Auto) 94.3 H Lymph % (Auto) 1.8 L [place] % (Auto) 2.5 Eos % (Auto) 0.0 Baso % (Auto) 0.2 Lymph # (Auto) 0.3 L [place] # (Auto) 0.4 Eos # (Auto) 0.0 Baso # (Auto) 0.0 Abs Immat Gran (auto) 0.18 H Absolute Neuts (auto) 14.3 H Absolute Nucleated RBC 0.000 Nucleated RBC % (auto) 0.0 Smear Tech's Comments VERIFIED VBG pH 7.45 H VBG pCO2 48 VBG pO2 51 VBG HCO3 34 H VBG O2 Saturation 80.0 VBG Base Excess 8.9 Sodium 142 Potassium 3.1 L Chloride 101 Carbon Dioxide 28 Anion Gap 16 BUN 24 H Creatinine 0.74 Estim Creat Clear Calc 95.8 Estimated GFR > 60 POC Glucose 288 H 359 H* Random Glucose 312 H Calcium 8.9 Phosphorus 3.6 Magnesium 1.7 Total Bilirubin 0.3 AST 10 ALT 10 Alkaline Phosphatase 59 Total Protein 6.6 Albumin 3.5 Respiratory Panel Holder Adenovirus (Rapid PCR) B.pert (TEM-PCR) B.parapertussis DNA PCR C. pneumoniae DNA (PCR) Coronavirus OC43 (PCR) Coronavirus HKU1 (PCR) Coronavirus 229E (PCR) Coronavirus NL63 (PCR) Human Metapneumovir PCR Influenza A (RT-PCR) Influenza B (RT-PCR) M. pneumoniae (PCR) Parainfluenza 1 (PCR) Parainfluenza 2 (PCR) Parainfluenza 3 (PCR) Parainfluenza 4 (PCR) RSV (PCR) Entero/Rhino (PCR) SARS-CoV-2 RNA (RT-PCR) 12/22/22 13:50 WBC RBC Hgb Hct MCV MCH MCHC RDW Plt Count MPV Immature Gran % (Auto) Neut % (Auto) Lymph % (Auto) [place] % (Auto) Eos % (Auto) Baso % (Auto) Lymph # (Auto) [place] # (Auto) Eos # (Auto) Baso # (Auto) Abs Immat Gran (auto) Absolute Neuts (auto) Absolute Nucleated RBC Nucleated RBC % (auto) Smear Tech's Comments VBG pH VBG pCO2 VBG pO2 VBG HCO3 VBG O2 Saturation VBG Base Excess Sodium Potassium Chloride Carbon Dioxide Anion Gap BUN Creatinine Estim Creat Clear Calc Estimated GFR POC Glucose Random Glucose Calcium Phosphorus Magnesium Total Bilirubin AST ALT Alkaline Phosphatase Total Protein Albumin Respiratory Panel Holder See Note Adenovirus (Rapid PCR) Not Detected B.pert (TEM-PCR) Not Detected B.parapertussis DNA PCR Not Detected C. pneumoniae DNA (PCR) Not Detected Coronavirus OC43 (PCR) Not Detected Coronavirus HKU1 (PCR) Not Detected Coronavirus 229E (PCR) Not Detected Coronavirus NL63 (PCR) Not Detected Human Metapneumovir PCR Not Detected Influenza A (RT-PCR) Not Detected Influenza B (RT-PCR) Not Detected M. pneumoniae (PCR) Not Detected Parainfluenza 1 (PCR) Not Detected Parainfluenza 2 (PCR) Not Detected Parainfluenza 3 (PCR) Not Detected Parainfluenza 4 (PCR) Not Detected RSV (PCR) Not Detected Entero/Rhino (PCR) Not Detected SARS-CoV-2 RNA (RT-PCR) Not Detected Microbiology Microbiology Results: Microbiology 12/21/22 05:25 Sputum - Suctioned Gram Stain - Final 12/21/22 05:25 Sputum - Suctioned Sputum Culture - Preliminary Culture in progress. 12/20/22 20:09 Blood - Venous Blood Culture - Preliminary No growth after 24 hours. 12/20/22 01:00 Blood - Venous Blood Culture - Preliminary No growth after 24 hours. Progress Note: A&P Assessment and plan (1) Obesity with alveolar hypoventilation: Status: Acute (2) Congestive heart failure: Status: Acute (3) Aspiration into airway: Status: Acute (4) COPD exacerbation: Status: Acute (5) Acute on chronic respiratory failure with hypoxia and hypercapnia: Status: Acute (6) Tobacco abuse: Status: Acute (7) Hypogammaglobulinemia: Status: Acute (8) Left leg swelling: Status: Acute (9) Constipation: Status: Acute (10) Asthma with exacerbation: Status: Acute (11) Hypercapnic respiratory failure: Status: Acute (12) Asthma-COPD overlap syndrome: Status: Acute (13) Salmonella gastroenteritis: Status: Acute (14) Pulmonary nodule: Status: Acute (15) Pleuritic chest pain: Status: Acute Plan plan for now we will temporize with the BiPAP should probably stay at least overnight on BiPAP but I would like to check swallow would introduce a diet if it is at all possible and then slowly reintroduce some of the home medications Quality Stroke Does the patient have a stroke diagnosis?: No VTE Prior VTE?: No VTE Risk Level:: Medical - moderate - high VTE Device Contraindication: N/A - Device Ordered VTE Drug Contraindication: N/A - Med Ordered
[2022-12-22 16:18] LABS: Vancomycin Trough 13.3 mcg/mL (10.0-20.0)
[2022-12-23] VITALS (21 sets, daily range): BP systolic 119–162; BP diastolic 50–98; PULSE 84–139; RESP 15–22; TEMP 36.1–37.3; O2SAT 92–99; BMI 34.6
--- NOTE | 2022-12-23 08:11 | PM.EVENT ---
Event Note Date of Service: 12/23/22 Event Note: Discussed with ICU attending, Dr. Geller. Patient admitted for resp failure and CHF. Stable for transfer to the medical floor Acute on chronic hypoxic resp failure requiring intubation. chronic bipap use at home day and night HFpEF requiring diuresis with IV lasix Time Spent With Patient Time: Total time managing care of this patient today ____ minutes.
--- NOTE | 2022-12-23 10:24 | PM.CCPN ---
Subjective Subjective Date of Service: 12/23/22 Interval History: 52-year-old lady with underlying obesity, CHITO/hypoventilation, , asthma/COPD overlap, diabetes mellitus, opioid dependence on methadone, multiple admissions for acute on chronic hypoxic and hypercapnic respiratory failure with pulmonary edema admitted on 12/21/2022 with acute on chronic hypoxic and hypercapnic respiratory failure requiring ventilatory support, diuresed and uneventfully extubated on 12/22/2022. No events overnight. Critical Care Time (minutes): 0 Physical Exam Vital Signs: Vital Signs: Last Vital Signs Temp 97.4 F 12/23/22 09:32 Pulse 134 H 12/23/22 09:32 Resp 20 12/23/22 09:32 BP 150/98 H 12/23/22 09:32 Pulse Ox 92 12/23/22 09:32 O2 Del Method Nasal Cannula 12/23/22 09:32 O2 Flow Rate 3 12/23/22 09:32 FiO2 30 12/23/22 06:59 BMI result Body Mass Index 34.6 Const: General: no acute distress, alert and awake Eyes: Sclerae: sclerae normal EOM: EOMs intact bilaterally Neck: Neck: Yes no lymphadenopathy, Yes trachea midline and Yes supple Resp: Effort & Inspection: normal respiratory effort and no respiratory distress Auscultation: clear to auscultation bilaterally Cardio: Rate: tachycardic Rhythm: regular rhythm Heart sounds: no gallops, no murmurs and no rubs GI: Palpation (GI): Soft to palpation and Other GI palpation findings present ( Nontender) Auscultation: normal bowel sounds Extrem: General: No clubbing, No cyanosis and Yes pedal edema (1+ bilateral) Objective Data Labs 12/23/22 05:45 12/23/22 05:45 Labs: Laboratory Results - last 24 hr 12/22/22 12/22/22 12/22/22 11:56 13:50 15:42 WBC RBC Hgb Hct MCV MCH MCHC RDW Plt Count MPV Immature Gran % (Auto) Neut % (Auto) Lymph % (Auto) [place] % (Auto) Eos % (Auto) Baso % (Auto) Lymph # (Auto) [place] # (Auto) Eos # (Auto) Baso # (Auto) Abs Immat Gran (auto) Absolute Neuts (auto) Absolute Nucleated RBC Nucleated RBC % (auto) Smear Tech's Comments VBG pH VBG pCO2 VBG pO2 VBG HCO3 VBG O2 Saturation VBG Base Excess Sodium Potassium Chloride Carbon Dioxide Anion Gap BUN Creatinine Estim Creat Clear Calc Estimated GFR POC Glucose 359 H* Random Glucose Calcium Phosphorus Magnesium Albumin 3.6 Vancomycin Trough 13.3 Respiratory Panel Holder See Note Adenovirus (Rapid PCR) Not Detected B.pert (TEM-PCR) Not Detected B.parapertussis DNA PCR Not Detected C. pneumoniae DNA (PCR) Not Detected Coronavirus OC43 (PCR) Not Detected Coronavirus HKU1 (PCR) Not Detected Coronavirus 229E (PCR) Not Detected Coronavirus NL63 (PCR) Not Detected Human Metapneumovir PCR Not Detected Influenza A (RT-PCR) Not Detected Influenza B (RT-PCR) Not Detected M. pneumoniae (PCR) Not Detected Parainfluenza 1 (PCR) Not Detected Parainfluenza 2 (PCR) Not Detected Parainfluenza 3 (PCR) Not Detected Parainfluenza 4 (PCR) Not Detected RSV (PCR) Not Detected Entero/Rhino (PCR) Not Detected SARS-CoV-2 RNA (RT-PCR) Not Detected 12/22/22 12/22/22 12/23/22 17:24 23:52 05:45 WBC 16.3 H RBC 4.18 L Hgb 12.1 Hct 38.2 MCV 91.4 MCH 28.9 MCHC 31.7 RDW 13.8 Plt Count 276 MPV 9.5 Immature Gran % (Auto) 1.3 H Neut % (Auto) 93.6 H Lymph % (Auto) 1.8 L [place] % (Auto) 3.2 Eos % (Auto) 0.0 Baso % (Auto) 0.1 Lymph # (Auto) 0.3 L [place] # (Auto) 0.5 Eos # (Auto) 0.0 Baso # (Auto) 0.0 Abs Immat Gran (auto) 0.21 H Absolute Neuts (auto) 15.2 H Absolute Nucleated RBC 0.000 Nucleated RBC % (auto) 0.0 Smear Tech's Comments VERIFIED VBG pH VBG pCO2 VBG pO2 VBG HCO3 VBG O2 Saturation VBG Base Excess Sodium 141 Potassium 3.6 Chloride 105 Carbon Dioxide 25 Anion Gap 15 BUN 19 H Creatinine 0.61 Estim Creat Clear Calc 113.9 Estimated GFR > 60 POC Glucose 269 H 212 H Random Glucose 210 H Calcium 9.0 Phosphorus 2.9 Magnesium 1.7 Albumin Vancomycin Trough Respiratory Panel Holder Adenovirus (Rapid PCR) B.pert (TEM-PCR) B.parapertussis DNA PCR C. pneumoniae DNA (PCR) Coronavirus OC43 (PCR) Coronavirus HKU1 (PCR) Coronavirus 229E (PCR) Coronavirus NL63 (PCR) Human Metapneumovir PCR Influenza A (RT-PCR) Influenza B (RT-PCR) M. pneumoniae (PCR) Parainfluenza 1 (PCR) Parainfluenza 2 (PCR) Parainfluenza 3 (PCR) Parainfluenza 4 (PCR) RSV (PCR) Entero/Rhino (PCR) SARS-CoV-2 RNA (RT-PCR) 12/23/22 12/23/22 05:47 06:25 WBC RBC Hgb Hct MCV MCH MCHC RDW Plt Count MPV Immature Gran % (Auto) Neut % (Auto) Lymph % (Auto) [place] % (Auto) Eos % (Auto) Baso % (Auto) Lymph # (Auto) [place] # (Auto) Eos # (Auto) Baso # (Auto) Abs Immat Gran (auto) Absolute Neuts (auto) Absolute Nucleated RBC Nucleated RBC % (auto) Smear Tech's Comments VBG pH 7.40 VBG pCO2 44 VBG pO2 54 VBG HCO3 27 H VBG O2 Saturation 81.0 VBG Base Excess 2.7 Sodium Potassium Chloride Carbon Dioxide Anion Gap BUN Creatinine Estim Creat Clear Calc Estimated GFR POC Glucose 208 H Random Glucose Calcium Phosphorus Magnesium Albumin Vancomycin Trough Respiratory Panel Holder Adenovirus (Rapid PCR) B.pert (TEM-PCR) B.parapertussis DNA PCR C. pneumoniae DNA (PCR) Coronavirus OC43 (PCR) Coronavirus HKU1 (PCR) Coronavirus 229E (PCR) Coronavirus NL63 (PCR) Human Metapneumovir PCR Influenza A (RT-PCR) Influenza B (RT-PCR) M. pneumoniae (PCR) Parainfluenza 1 (PCR) Parainfluenza 2 (PCR) Parainfluenza 3 (PCR) Parainfluenza 4 (PCR) RSV (PCR) Entero/Rhino (PCR) SARS-CoV-2 RNA (RT-PCR) Microbiology Microbiology Results: Microbiology 12/21/22 05:25 Sputum - Suctioned Gram Stain - Final 12/21/22 05:25 Sputum - Suctioned Sputum Culture - Preliminary Filamentous fungus 12/20/22 20:09 Blood - Venous Blood Culture - Preliminary No growth after 48 hours. 12/20/22 01:00 Blood - Venous Blood Culture - Preliminary No growth after 48 hours. Progress Note: A&P Assessment and plan (1) Aspiration into airway: Status: Acute (2) COPD exacerbation: Status: Acute (3) Asthma-COPD overlap syndrome: Status: Acute (4) Cor pulmonale: Status: Acute (5) CHITO (obstructive sleep apnea): Status: Acute (6) Obesity with alveolar hypoventilation: Status: Acute (7) Type 2 diabetes mellitus: Status: Acute Plan Assessment: 52-year-old lady with underlying asthma/COPD overlap syndrome, CHITO/hypoventilation, cor pulmonale admitted with acute on chronic hypoxic and hypercapnic respiratory failure with an aspiration component requiring intubation, now improved with diuresis. Plan: Neuro: No acute issues. Cardiac: Cor pulmonale with improvement with diuresis. Continue Diamox 250 mg twice a day. Pulmonary: Acute on chronic hypoxic and hypercapnic respiratory failure with aspiration component briefly requiring ventilatory support, extubated 12/22/2022. Underlying CHITO with hypoventilation. Continue nocturnal BiPAP. Renal: No acute issues. Endo: No acute issues. GI: No acute issues. ID: Aspiration pneumonitis component resolved Heme/Onc: No acute issues. Psych: No acute issues. Miscellaneous: No acute issues. Prophylaxis: Heparin Diet: Diabetic Quality Stroke Does the patient have a stroke diagnosis?: No VTE Prior VTE?: No VTE Risk Level:: Medical - moderate - high VTE Device Contraindication: N/A - Device Ordered VTE Drug Contraindication: N/A - Med Ordered
[2022-12-23] MEDS: predniSONE 20 MG TABLET 40 MG PO (10:31)
--- NOTE | 2022-12-23 11:12 | PC.RT ---
Started the patients duoneb. HR elevated and I stopped the Tx.
--- NOTE | 2022-12-23 16:41 | PC.NURSE ---
Patient transferred from ICU this am in bed. A&OX4 speech clear. Denies pain/discomfort. LS dim remains on 4L oxygen via [place], denies shortness or breath or chest pain occasional SOB with exertion. BS+X4 abdomen soft non-tender denies nausea/vomiting tolerating diet. OOB to commode with assist large BM this afternoon. Sinus tach on tele 120-140's David Brito NP aware oral meds ordered and given. Pt continues to be tachy into 130's sustained in afternoon Daryl BOWERS paged with update. Resting comfortably in bed. Will continue to monitor and report changes
[2022-12-24] VITALS (12 sets, daily range): BP systolic 122–134; BP diastolic 62–82; PULSE 69–121; RESP 16–21; TEMP 36.1–36.4; O2SAT 88–99
--- NOTE | 2022-12-24 10:59 | P.PNIM_ITS ---
Subjective Subjective Date of Service: 12/24/22 <China Brito NP - Last Filed: 12/24/22 11:31> 01/12/23 <Joao Meehan MD - Last Filed: 01/12/23 10:09> Interval History: seen and examined this morning follow up for for respiratory failure, copd exacerbation breathing better today <China Brito NP - Last Filed: 12/24/22 11:31> Review of Systems Review of Systems: Yes all other systems are reviewed and are negative <China Brito NP - Last Filed: 12/24/22 11:31> Constitutional Constitutional: Denies chills and Denies fever(s) <China Brito NP - Last Filed: 12/24/22 11:31> ENT Ears, Nose, Mouth, and Throat: Denies dizziness <China Brito NP - Last Filed: 12/24/22 11:31> Cardiovascular Cardiovascular: Denies chest pain, Denies palpitations and Reports dyspnea <China Brito NP - Last Filed: 12/24/22 11:31> Respiratory Respiratory: Reports cough and Reports dyspnea <China Brito NP - Last Filed: 12/24/22 11:31> Gastrointestinal Gastrointestinal: Denies abdominal pain, Denies nausea and Denies vomiting <China Brito NP - Last Filed: 12/24/22 11:31> Neurologic Neurologic: Denies dizziness <China Brito NP - Last Filed: 12/24/22 11:31> Endocrine Endocrine: Denies palpitations <China Brito NP - Last Filed: 12/24/22 11:31> Physical Exam 2 Vital Signs: Vital Signs: Last Vital Signs Temp 97.5 F 12/24/22 07:40 Pulse 97 12/24/22 08:03 Resp 20 12/24/22 08:03 BP 133/71 12/24/22 07:40 Pulse Ox 88 L 12/24/22 07:40 O2 Del Method Nasal Cannula 12/24/22 07:40 O2 Flow Rate 1.5 12/24/22 07:40 FiO2 30 12/23/22 06:59 BMI result Body Mass Index 34.6 <China Brito NP - Last Filed: 12/24/22 11:31> Appearing in no acute distress lung sounds are clear to auscultation, diminished heart regular rate rhythm, clear S1, S2 positive bowel sounds, abdomen is soft, nontender, obese neuro patient is alert x3, no focal deficits <China Brito NP - Last Filed: 12/24/22 11:31> Objective Data Active Medications Acetaminophen (Acetaminophen 325 Mg Tablet) 650 mg PO Q6H PRN PRN Reason: Pain, Mild (Pain Scale 1-3) Last Admin: 12/24/22 05:49 Dose: 650 mg Documented By: ERIC Acetazolamide (Acetazolamide Sodium 500 Mg Vial) 250 mg IVPUSH BID [facility] Stop: 12/25/22 21:01 Last Admin: 12/24/22 09:02 Dose: 250 mg Documented By: REAL Albuterol/Ipratropium (Albuterol/Iprat 2.5/0.5mg 3 Ml Ampul.Neb) 3 ml INHALE RQ4H WHILE AWAKE [facility] Last Admin: 12/24/22 08:03 Dose: 3 ml Documented By: BI Atorvastatin Calcium (Atorvastatin Calcium 20 Mg Tablet) 20 mg PO BEDTIME [facility] Last Admin: 12/23/22 22:17 Dose: 20 mg Documented By: ERIC Azathioprine (Azathioprine 50 Mg Tablet) 50 mg PO DAILY [facility] Bupropion HCl (Bupropion Hcl 100 Mg Tablet) 100 mg PO DAILY [facility] Last Admin: 12/24/22 08:57 Dose: 100 mg Documented By: REAL Calcitonin [place] (Calcitonin,[place],Synth Nasal 3.7 Ml Bottle) 1 spray NOSTRIL-B DAILY [facility] Clonazepam (Clonazepam 1 Mg Tablet) 1 mg PO BID PRN PRN Reason: Anxiety Last Admin: 12/23/22 23:01 Dose: 1 mg Documented By: CHAVA Diltiazem HCl (Diltiazem Hcl Cd 180 Mg Cap.Er.24h) 360 mg PO DAILY [facility]; Protocol Last Admin: 12/24/22 08:58 Dose: 360 mg Documented By: REAL Docusate Sodium (Docusate Sodium 100 Mg Capsule) 100 mg PO BID PRN PRN Reason: constipation Enoxaparin Sodium (Enoxaparin Sodium 40 Mg/0.4 Ml Syringe) 40 mg SUBCUT Q24H [facility] Last Admin: 12/24/22 05:50 Dose: 40 mg Documented By: ERIC Folic Acid (Folic Acid 1 Mg Tablet) 1 mg PO DAILY [facility] Last Admin: 12/24/22 08:57 Dose: 1 mg Documented By: REAL Gabapentin (Gabapentin 300 Mg Capsule) 300 mg PO BID [facility] Last Admin: 12/24/22 08:57 Dose: 300 mg Documented By: REAL Hydralazine HCl (Hydralazine Hcl 25 Mg Tablet) 25 mg PO TIDWM [facility]; Protocol Last Admin: 12/24/22 08:57 Dose: 25 mg Documented By: REAL Insulin Glargine (Insulin Glargine,Hum.Rec.Anlog 100 Unit/Ml 10 Ml Vial) 35 unit SUBCUT BEDTIME [facility] Last Admin: 12/23/22 22:17 Dose: 35 unit Documented By: ERIC Insulin Human Lispro (Insulin Lispro 100 Unit/Ml 3 Ml Vial) 0 unit SUBCUT QIDACHS [facility]; Protocol Last Admin: 12/24/22 09:02 Dose: Not Given Documented By: REAL Non-Admin Reason: No Insulin Coverage Insulin Human Lispro (Insulin Lispro 100 Unit/Ml 3 Ml Vial) 4 unit SUBCUT TIDAC [facility] Last Admin: 12/24/22 09:01 Dose: 4 unit Documented By: REAL Lamotrigine (Lamotrigine 25 Mg Tablet) 150 mg PO BID [facility] Last Admin: 12/24/22 08:57 Dose: 150 mg Documented By: REAL Lisinopril (Lisinopril 10 Mg Tablet) 10 mg PO DAILY [facility]; Protocol Last Admin: 12/24/22 08:58 Dose: 10 mg Documented By: REAL Loratadine (Loratadine 10 Mg Tablet) 10 mg PO DAILY [facility] Last Admin: 12/24/22 08:57 Dose: 10 mg Documented By: REAL Metformin HCl (Metformin Hcl Er 500 Mg Tab.Er.24h) 1,000 mg PO BID [facility] Last Admin: 12/24/22 08:57 Dose: 1,000 mg Documented By: REAL Methadone HCl (Methadone Hcl 20 Mg/2 Ml Oral.Conc) 50 mg PO DAILY [facility] Last Admin: 12/24/22 09:00 Dose: 50 mg Documented By: REAL Montelukast Sodium (Montelukast Sodium 10 Mg Tablet) 10 mg PO BEDTIME [facility] Last Admin: 12/23/22 22:17 Dose: 10 mg Documented By: ERIC Omeprazole (Omeprazole 40 Mg Capsule.Dr) 40 mg PO DAILY@0630 [facility] Last Admin: 12/24/22 05:49 Dose: 40 mg Documented By: ERIC Pharmacy Consult (Consult Rx Vancomycin Dosing) 1 each MISCELLANE DAILY PRN PRN Reason: Consult order Polyethylene Glycol (Polyethylene Glycol 3350 17 Gm Powd.Pack) 17 gm PO DAILY [facility] Last Admin: 12/24/22 09:03 Dose: Not Given Documented By: REAL Non-Admin Reason: Patient Refused Prednisone (Prednisone 20 Mg Tablet) 40 mg PO DAILY [facility] Last Admin: 12/24/22 08:57 Dose: 40 mg Documented By: REAL Roflumilast (Roflumilast 500 Mcg Tablet) 500 mcg PO DAILY [facility] Last Admin: 12/24/22 08:58 Dose: 500 mcg Documented By: REAL Salmeterol Xinafoate (Salmeterol Xinafoate 50 Mcg Blst.W.Dev) 1 puff INHALE RBID [facility] Last Admin: 12/24/22 08:03 Dose: 1 puff Documented By: BI Simethicone (Simethicone 80 Mg Tab.Chew) 80 mg PO QIDWMHS PRN PRN Reason: Abdominal Distention Sodium Biphosphate/Sodium Phosphate (Sodium Phosphate,[place]-Dibasic 133 Ml Enema) 133 ml [place] ONCE PRN PRN Reason: Constipation Last Admin: 12/21/22 22:56 Dose: 133 ml Documented By: CARLO Tramadol HCl (Tramadol Hcl 50 Mg Tablet) 25 mg PO Q6H PRN PRN Reason: Pain, Moderate(Pain Scale 4-6) Zolpidem Tartrate (Zolpidem Tartrate 5 Mg Tablet) 5 mg PO BEDTIME PRN PRN Reason: Sleep <China Brito NP - Last Filed: 12/24/22 11:31> Labs CBC & Chem 7: 12/24/22 06:53 12/25/22 07:35 <China Brito NP - Last Filed: 12/24/22 11:31> Labs: Laboratory Results - last 24 hr 10/10/0612/23/22 12/23/22 07:27 11:48 16:17 MCV MCH MCHC RDW Plt Count MPV Immature Gran % (Auto) Neut % (Auto) Lymph % (Auto) [place] % (Auto) Eos % (Auto) Baso % (Auto) Lymph # (Auto) [place] # (Auto) Eos # (Auto) Baso # (Auto) Abs Immat Gran (auto) Absolute Neuts (auto) Absolute Nucleated RBC Nucleated RBC % (auto) VBG pH VBG pCO2 VBG pO2 VBG HCO3 VBG O2 Saturation VBG Base Excess Anion Gap Estim Creat Clear Calc Estimated GFR POC Glucose 144 H 217 H Random Glucose Calcium Phosphorus Magnesium Albumin IgG Total 985 IgA Total 135 IgM 36 L 12/23/22 12/24/22 12/24/22 20:37 06:53 07:13 MCV 93.4 MCH 29.1 MCHC 31.2 RDW 14.6 Plt Count 273 MPV 9.4 Immature Gran % (Auto) 0.8 H Neut % (Auto) 81.2 H Lymph % (Auto) 11.5 L [place] % (Auto) 6.2 Eos % (Auto) 0.2 Baso % (Auto) 0.1 Lymph # (Auto) 1.4 [place] # (Auto) 0.8 Eos # (Auto) 0.0 Baso # (Auto) 0.0 Abs Immat Gran (auto) 0.10 H Absolute Neuts (auto) 9.9 H Absolute Nucleated RBC 0.000 Nucleated RBC % (auto) 0.0 VBG pH 7.36 VBG pCO2 63 VBG pO2 90 VBG HCO3 36 H VBG O2 Saturation 96.0 VBG Base Excess 9.0 Anion Gap 14 Estim Creat Clear Calc 119.8 Estimated GFR > 60 POC Glucose 255 H Random Glucose 94 Calcium 9.7 D Phosphorus 3.8 Magnesium 1.8 Albumin 3.5 IgG Total IgA Total IgM 12/24/22 07:39 MCV MCH MCHC RDW Plt Count MPV Immature Gran % (Auto) Neut % (Auto) Lymph % (Auto) [place] % (Auto) Eos % (Auto) Baso % (Auto) Lymph # (Auto) [place] # (Auto) Eos # (Auto) Baso # (Auto) Abs Immat Gran (auto) Absolute Neuts (auto) Absolute Nucleated RBC Nucleated RBC % (auto) VBG pH VBG pCO2 VBG pO2 VBG HCO3 VBG O2 Saturation VBG Base Excess Anion Gap Estim Creat Clear Calc Estimated GFR POC Glucose 99 Random Glucose Calcium Phosphorus Magnesium Albumin IgG Total IgA Total IgM <China Brito NP - Last Filed: 12/24/22 11:31> Microbiology Microbiology Results: Microbiology 12/21/22 05:25 Gram Stain - Final Sputum - Suctioned Sputum Culture - Preliminary Filamentous fungus <ROBINSON Cruz Last Filed: 12/24/22 11:31> Assessment and Plan (1) Hypercapnic respiratory failure: Status: Inactive <China Brito NP - Last Filed: 12/24/22 11:31> (2) Asthma-COPD overlap syndrome: Status: Inactive <ROBINSON Cruz Last Filed: 12/24/22 11:31> Assessment and Plan: 52-year-old woman with history of chronic respiratory failure, hypercarbic respiratory failure with COPD and asthma overlap admitted to the ICU for acute respiratory failure. Initially placed on BiPAP. She had an episode of vomiting. She developed worsening encephalopathy and ABGs showed worsening hypoxic and hypercapnic respiratory failure requiring emergent intubation. She was treated with IV steroids an empiric antibiotics for aspiration pneumonia. Extubated 12/22/2022 and placed on BiPAP. Patient was transferred to medical telemetry floor on 12/23/2022. Acute on chronic hypoxic, hypercarbic respiratory failure secondary to COPD/asthma overlap syndrome Required intubation. Respiratory status improved significantly. Now BiPAP as needed during the day and at bedtime Continue prednisone 40 mg daily, scheduled albuterol Follow oxygen requirements closely Hypertension stable blood pressure Continue lisinopril, hydralazine History of heart failure with preserved ejection fraction No exacerbation, continue furosemide, diltiazem Diabetes mellitus type 2 Sliding scale, Lantus at bedtime, metformin, mealtime insulin ADA diet Mental health Continue home medications Chronic opiate dependence Continue methadone Obesity. BMI 34.6 Discussed importance of weight management as this may be contributing to worsening of other comorbidities DVT prophylaxis with lovenox attending Dr. Meehan Full code Continued hospital stay for treatment of acute hypoxic and hypercapnic respiratory failure requiring scheduled respiratory treatments and BiPAP support <ROIBNSON Cruz Last Filed: 12/24/22 11:31> Time Spent With Patient Time: Total time managing care of this patient today ____ minutes. <China Brito NP - Last Filed: 12/24/22 11:31> Quality Stroke Does the patient have a stroke diagnosis?: No <China Brito NP - Last Filed: 12/24/22 11:31> VTE Prior VTE?: No <China Brito NP - Last Filed: 12/24/22 11:31> VTE Risk Level:: Medical - moderate - high <China Brito NP - Last Filed: 12/24/22 11:31> VTE Device Contraindication: N/A - Device Ordered <China Brito NP - Last Filed: 12/24/22 11:31> VTE Drug Contraindication: N/A - Med Ordered <China Brito NP - Last Filed: 12/24/22 11:31>
[2022-12-24 23:02] LABS: Strep Pneumo Ag urine Not Detected (Not Detected)
[2022-12-25] VITALS (13 sets, daily range): BP systolic 115–135; BP diastolic 62–74; PULSE 90–122; RESP 14–23; TEMP 36.3–36.9; O2SAT 95–99
[2022-12-25 08:09] LABS: Anion Gap 13 (12-20); Blood Urea Nitrogen 24 mg/dL (9-16); Calcium 10.1 mg/dL (8.4-10.2); Carbon Dioxide 30 mmol/L (22-29); Chloride 105 mmol/L (96-108); Creatinine Clr Calc Pharmacy 117.7; Estimated Glomerular Filt Rate > 60; Glucose Random 94 mg/dL (60-115); Potassium 3.8 mmol/L (3.3-5.1); Sodium 144 mmol/L (135-145)
--- NOTE | 2022-12-25 08:42 | HO.PM.IMPN ---
Subjective Subjective Date of Service: 12/25/22 <China Brito NP - Last Filed: 12/25/22 08:44> 01/12/23 <Joao Meehan MD - Last Filed: 01/12/23 10:15> Interval History: seen and examined this morning follow up for for respiratory failure, copd exacerbation breathing better today <China Brito NP - Last Filed: 12/25/22 08:44> Review of Systems Review of Systems: Yes all other systems are reviewed and are negative <China Brito NP - Last Filed: 12/25/22 08:44> Constitutional Constitutional: Denies chills and Denies fever(s) <China Brito NP - Last Filed: 12/25/22 08:44> ENT Ears, Nose, Mouth, and Throat: Denies dizziness <China Brito NP - Last Filed: 12/25/22 08:44> Cardiovascular Cardiovascular: Denies chest pain, Denies palpitations and Reports dyspnea <China Brito NP - Last Filed: 12/25/22 08:44> Respiratory Respiratory: Reports cough and Reports dyspnea <China Brito NP - Last Filed: 12/25/22 08:44> Gastrointestinal Gastrointestinal: Denies abdominal pain, Denies nausea and Denies vomiting <China Brito NP - Last Filed: 12/25/22 08:44> Neurologic Neurologic: Denies dizziness <China Brito NP - Last Filed: 12/25/22 08:44> Endocrine Endocrine: Denies palpitations <China Brito NP - Last Filed: 12/25/22 08:44> Physical Exam Vital Signs: Vital Signs: Last Vital Signs Temp 98.0 F 12/25/22 08:00 Pulse 100 12/25/22 08:00 Resp 18 12/25/22 08:00 BP 117/69 12/25/22 08:00 Pulse Ox 98 12/25/22 08:00 O2 Del Method Nasal Cannula 12/25/22 08:00 O2 Flow Rate 2.5 12/25/22 08:00 FiO2 30 12/23/22 06:59 BMI result Body Mass Index 34.6 <China Brito NP - Last Filed: 12/25/22 08:44> Appearing in no acute distress lung sounds diminished heart regular rate rhythm, clear S1, S2 positive bowel sounds, abdomen is soft, nontender, obese neuro patient is alert x3, no focal deficits <China Brito NP - Last Filed: 12/25/22 08:44> Objective Data Active Medications Acetaminophen (Acetaminophen 325 Mg Tablet) 650 mg PO Q6H PRN PRN Reason: Pain, Mild (Pain Scale 1-3) Last Admin: 12/24/22 05:49 Dose: 650 mg Documented By: ERIC Acetazolamide (Acetazolamide Sodium 500 Mg Vial) 250 mg IVPUSH BID [facility] Stop: 12/25/22 21:01 Last Admin: 12/24/22 21:58 Dose: 250 mg Documented By: CHAVA Albuterol/Ipratropium (Albuterol/Iprat 2.5/0.5mg 3 Ml Ampul.Neb) 3 ml INHALE RQ4H WHILE AWAKE [facility] Last Admin: 12/25/22 07:10 Dose: 3 ml Documented By: MITESH Atorvastatin Calcium (Atorvastatin Calcium 20 Mg Tablet) 20 mg PO BEDTIME [facility] Last Admin: 12/24/22 22:00 Dose: 20 mg Documented By: CHAVA Azathioprine (Azathioprine 50 Mg Tablet) 50 mg PO DAILY [facility] Last Admin: 12/24/22 13:56 Dose: 50 mg Documented By: REAL Bupropion HCl (Bupropion Hcl 100 Mg Tablet) 100 mg PO DAILY [facility] Last Admin: 12/24/22 08:57 Dose: 100 mg Documented By: REAL Calcitonin [place] (Calcitonin,[place],Synth Nasal 3.7 Ml Bottle) 1 spray NOSTRIL-B DAILY [facility] Last Admin: 12/24/22 12:27 Dose: 1 spray Documented By: REAL Clonazepam (Clonazepam 1 Mg Tablet) 1 mg PO BID PRN PRN Reason: Anxiety Last Admin: 12/24/22 12:27 Dose: 1 mg Documented By: REAL Diltiazem HCl (Diltiazem Hcl Cd 180 Mg Cap.Er.24h) 360 mg PO DAILY [facility]; Protocol Last Admin: 12/24/22 08:58 Dose: 360 mg Documented By: REAL Docusate Sodium (Docusate Sodium 100 Mg Capsule) 100 mg PO BID PRN PRN Reason: constipation Enoxaparin Sodium (Enoxaparin Sodium 40 Mg/0.4 Ml Syringe) 40 mg SUBCUT Q24H [facility] Last Admin: 12/25/22 05:42 Dose: 40 mg Documented By: ERIC Folic Acid (Folic Acid 1 Mg Tablet) 1 mg PO DAILY [facility] Last Admin: 12/24/22 08:57 Dose: 1 mg Documented By: REAL Gabapentin (Gabapentin 300 Mg Capsule) 300 mg PO BID [facility] Last Admin: 12/24/22 22:00 Dose: 300 mg Documented By: CHAVA Hydralazine HCl (Hydralazine Hcl 25 Mg Tablet) 25 mg PO TIDWM [facility]; Protocol Last Admin: 12/24/22 16:32 Dose: 25 mg Documented By: REAL Insulin Glargine (Insulin Glargine,Hum.Rec.Anlog 100 Unit/Ml 10 Ml Vial) 35 unit SUBCUT BEDTIME [facility] Last Admin: 12/24/22 21:58 Dose: 35 unit Documented By: CHAVA Insulin Human Lispro (Insulin Lispro 100 Unit/Ml 3 Ml Vial) 0 unit SUBCUT QIDACHS [facility]; Protocol Last Admin: 12/25/22 08:20 Dose: Not Given Documented By: REAL Non-Admin Reason: No Insulin Coverage Insulin Human Lispro (Insulin Lispro 100 Unit/Ml 3 Ml Vial) 4 unit SUBCUT TIDAC [facility] Last Admin: 12/24/22 16:35 Dose: 4 unit Documented By: REAL Lamotrigine (Lamotrigine 25 Mg Tablet) 150 mg PO BID [facility] Last Admin: 12/24/22 22:00 Dose: 150 mg Documented By: CHAVA Lisinopril (Lisinopril 10 Mg Tablet) 10 mg PO DAILY [facility]; Protocol Last Admin: 12/24/22 08:58 Dose: 10 mg Documented By: REAL Loratadine (Loratadine 10 Mg Tablet) 10 mg PO DAILY [facility] Last Admin: 12/24/22 08:57 Dose: 10 mg Documented By: REAL Metformin HCl (Metformin Hcl Er 500 Mg Tab.Er.24h) 1,000 mg PO BID [facility] Last Admin: 12/24/22 22:00 Dose: 1,000 mg Documented By: CHAVA Methadone HCl (Methadone Hcl 20 Mg/2 Ml Oral.Conc) 50 mg PO DAILY [facility] Last Admin: 12/24/22 09:00 Dose: 50 mg Documented By: REAL Montelukast Sodium (Montelukast Sodium 10 Mg Tablet) 10 mg PO BEDTIME [facility] Last Admin: 12/24/22 22:00 Dose: 10 mg Documented By: CHAVA Omeprazole (Omeprazole 40 Mg Capsule.Dr) 40 mg PO DAILY@0630 [facility] Last Admin: 12/25/22 05:42 Dose: 40 mg Documented By: ERIC Pharmacy Consult (Consult Rx Vancomycin Dosing) 1 each MISCELLANE DAILY PRN PRN Reason: Consult order Polyethylene Glycol (Polyethylene Glycol 3350 17 Gm Powd.Pack) 17 gm PO DAILY [facility] Last Admin: 12/24/22 09:03 Dose: Not Given Documented By: REAL Non-Admin Reason: Patient Refused Prednisone (Prednisone 20 Mg Tablet) 40 mg PO DAILY [facility] Last Admin: 12/24/22 08:57 Dose: 40 mg Documented By: REAL Roflumilast (Roflumilast 500 Mcg Tablet) 500 mcg PO DAILY [facility] Last Admin: 12/24/22 08:58 Dose: 500 mcg Documented By: REAL Salmeterol Xinafoate (Salmeterol Xinafoate 50 Mcg Blst.W.Dev) 1 puff INHALE RBID [facility] Last Admin: 12/25/22 07:11 Dose: 1 puff Documented By: MITESH Simethicone (Simethicone 80 Mg Tab.Chew) 80 mg PO QIDWMHS PRN PRN Reason: Abdominal Distention Sodium Biphosphate/Sodium Phosphate (Sodium Phosphate,[place]-Dibasic 133 Ml Enema) 133 ml [place] ONCE PRN PRN Reason: Constipation Last Admin: 12/21/22 22:56 Dose: 133 ml Documented By: CARLO Tramadol HCl (Tramadol Hcl 50 Mg Tablet) 25 mg PO Q6H PRN PRN Reason: Pain, Moderate(Pain Scale 4-6) Zolpidem Tartrate (Zolpidem Tartrate 5 Mg Tablet) 5 mg PO BEDTIME PRN PRN Reason: Sleep <China Brito PASTOR - Last Filed: 12/25/22 08:44> Labs CBC & Chem 7: 12/24/22 06:53 12/25/22 07:35 <Cihna Brito NP - Last Filed: 12/25/22 08:44> Labs: Laboratory Results - last 24 hr 12/21/22 12/21/22 12/24/22 02:26 07:27 11:31 Anion Gap Estim Creat Clear Calc Estimated GFR POC Glucose 120 H Random Glucose Calcium IgG Total 769 IgG Subclass 1 500 IgG Subclass 2 217 L IgG Subclass 3 55 IgG Subclass 4 19.0 Ur Strep pneumoniae Ag Not Detected 12/24/22 12/24/22 12/25/22 16:11 20:40 07:35 Anion Gap 13 Estim Creat Clear Calc 117.7 Estimated GFR > 60 POC Glucose 195 H 221 H Random Glucose 94 Calcium 10.1 IgG Total IgG Subclass 1 IgG Subclass 2 IgG Subclass 3 IgG Subclass 4 Ur Strep pneumoniae Ag 12/25/22 07:46 Anion Gap Estim Creat Clear Calc Estimated GFR POC Glucose 103 Random Glucose Calcium IgG Total IgG Subclass 1 IgG Subclass 2 IgG Subclass 3 IgG Subclass 4 Ur Strep pneumoniae Ag <China Brito NP - Last Filed: 12/25/22 08:44> Microbiology Microbiology Results: Microbiology 12/21/22 05:25 Gram Stain - Final Sputum - Suctioned Sputum Culture - Preliminary Filamentous fungus <China Brito NP - Last Filed: 12/25/22 08:44> Assessment and Plan (1) Hypercapnic respiratory failure: Status: Inactive <China Brito NP - Last Filed: 12/25/22 08:44> (2) Asthma-COPD overlap syndrome: Status: Inactive <China Brito NP - Last Filed: 12/25/22 08:44> Assessment and Plan: 52-year-old woman with history of chronic respiratory failure, hypercarbic respiratory failure with COPD and asthma overlap admitted to the ICU for acute respiratory failure. Initially placed on BiPAP. She had an episode of vomiting. She developed worsening encephalopathy and ABGs showed worsening hypoxic and hypercapnic respiratory failure requiring emergent intubation. She was treated with IV steroids an empiric antibiotics for aspiration pneumonia. Extubated 12/22/2022 and placed on BiPAP. Patient was transferred to medical telemetry floor on 12/23/2022. Acute on chronic hypoxic, hypercarbic respiratory failure secondary to COPD/asthma overlap syndrome Required intubation. Respiratory status improved significantly. Now BiPAP as needed during the day and at bedtime Continue prednisone 40 mg daily, scheduled albuterol Follow oxygen requirements closely resp status improving Hypertension stable blood pressure Continue lisinopril, hydralazine hypokalemia/hypernatremia . both mild resolved History of heart failure with preserved ejection fraction No exacerbation, continue furosemide, diltiazem Diabetes mellitus type 2 Sliding scale, Lantus at bedtime, metformin, mealtime insulin ADA diet Mental health Continue home medications Chronic opiate dependence Continue methadone Obesity. BMI 34.6 Discussed importance of weight management as this may be contributing to worsening of other comorbidities DVT prophylaxis with lovenox attending Dr. Meehan Full code Disposition dc home when medically clear, possible dc tomorrow Continued hospital stay for treatment of acute hypoxic and hypercapnic respiratory failure requiring scheduled respiratory treatments and BiPAP support <China Brito NP - Last Filed: 12/25/22 08:44> Time Spent With Patient Time: Total time managing care of this patient today ____ minutes. <China Brito NP - Last Filed: 12/25/22 08:44> Quality Stroke Does the patient have a stroke diagnosis?: No <China Brito NP - Last Filed: 12/25/22 08:44> VTE Prior VTE?: No <China Brito NP - Last Filed: 12/25/22 08:44> VTE Risk Level:: Medical - moderate - high <China Brito NP - Last Filed: 12/25/22 08:44> VTE Device Contraindication: N/A - Device Ordered <China Brito NP - Last Filed: 12/25/22 08:44> VTE Drug Contraindication: N/A - Med Ordered <hCina Brito NP - Last Filed: 12/25/22 08:44>
--- NOTE | 2022-12-25 11:41 | MHC.CM.PN ---
Addendum entered by Deidra Perez RN 12/25/22 15:22: NO RESPONSE FROM [facility]. LEFT MESSAGE WITH ANSWERING SERVICE REQUESTING CALL BACK TO DISCUSS RESUMING SERVICES INCLUDING METHADONE. AWAITING CALL BACK. Original Note: EMR REVIEWED AND MET WITH PATIENT. PER MD ROUNDS PATIENT NOT MEDICALLY CLEARED FOR DC AT THIS TIME. LIKELY DC TOMORROW. 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 RESUME [facility] FOR METHADONE DELIVERIES WITH BETTER [facility]UTIONS. MESSAGE TO [facility] WITH UPDATE AND REQUEST TO RESUME SERVICES, AWAITING RESPONSE.
[2022-12-25 16:23] LABS: Glucose, Whole Blood 186 mg/dL (60-115)
[2022-12-25] MEDS: Albuterol/Iprat 2.5/0.5MG 3 ML AMPUL.NEB INHALE ×2 (16:29→19:43)
[2022-12-25] MEDS: hydrALAZINE HCl 25 MG TABLET PO (17:03)
[2022-12-25] MEDS: Insulin Lispro 100 UNIT/ML 3 ML VIAL SUBCUT ×3 (17:05→20:59)
[2022-12-25] MEDS: Salmeterol Xinafoate 50 MCG BLST.W.DEV 1 PUFF INHALE (19:43)
[2022-12-25 20:27] LABS: Glucose, Whole Blood 237 mg/dL (60-115)
[2022-12-25] MEDS: acetaZOLAMIDE sodium 500 MG VIAL 250 MG IVPUSH (20:57)
[2022-12-25] MEDS: Gabapentin 300 MG CAPSULE PO (20:58)
[2022-12-25] MEDS: Insulin Glargine,Hum.rec.anlog 100 UNIT/ML 10 ML VIAL 35 UNIT SUBCUT (20:58)
[2022-12-25] MEDS: Atorvastatin Calcium 20 MG TABLET PO (20:58)
[2022-12-25] MEDS: lamoTRIgine 25 MG TABLET 150 MG PO (20:59)
[2022-12-25] MEDS: Montelukast Sodium 10 MG TABLET PO (21:00)
[2022-12-25] MEDS: metFORMIN HCl ER 500 MG TAB.ER.24H 1000 MG PO (21:00)
[2022-12-26] VITALS (12 sets, daily range): BP systolic 117–147; BP diastolic 59–90; PULSE 82–113; RESP 16–25; TEMP 36–37.2; O2SAT 96–100
[2022-12-26] MEDS: Enoxaparin Sodium 40 MG/0.4 ML SYRINGE SUBCUT (06:48)
[2022-12-26] MEDS: Omeprazole 40 MG CAPSULE.DR PO (06:49)
[2022-12-26] MEDS: Acetaminophen 325 MG TABLET 650 MG PO (06:51)
[2022-12-26] MEDS: Albuterol/Iprat 2.5/0.5MG 3 ML AMPUL.NEB INHALE ×3 (07:33→19:58)
[2022-12-26] MEDS: Salmeterol Xinafoate 50 MCG BLST.W.DEV 1 PUFF INHALE ×2 (07:51→19:58)
[2022-12-26 08:00] LABS: Glucose, Whole Blood 106 mg/dL (60-115)
[2022-12-26] MEDS: metFORMIN HCl ER 500 MG TAB.ER.24H 1000 MG PO ×2 (08:53→21:49)
[2022-12-26] MEDS: Roflumilast 500 MCG TABLET PO (08:53)
[2022-12-26] MEDS: dilTIAZem HCL CD 180 MG CAP.ER.24H 360 MG PO (08:53)
[2022-12-26] MEDS: methADONE HCl 20 MG/2 ML ORAL.CONC 50 MG PO (08:54)
[2022-12-26] MEDS: hydrALAZINE HCl 25 MG TABLET PO ×3 (08:54→17:09)
[2022-12-26] MEDS: Gabapentin 300 MG CAPSULE PO ×2 (08:54→21:49)
[2022-12-26] MEDS: Folic Acid 1 MG TABLET PO (08:54)
[2022-12-26] MEDS: Loratadine 10 MG TABLET PO (08:54)
[2022-12-26] MEDS: azaTHIOprine 50 MG TABLET PO (08:54)
[2022-12-26] MEDS: predniSONE 20 MG TABLET 40 MG PO (08:54)
[2022-12-26] MEDS: lamoTRIgine 25 MG TABLET 150 MG PO ×2 (08:54→21:50)
[2022-12-26] MEDS: lisinopriL 10 MG TABLET PO (08:54)
--- NOTE | 2022-12-26 10:40 | MHC.CM.PN ---
GIOVANNY returned a call to Maggie from [facility] @ [phone], who manages/delivers Patient's Methadone.Maggie asks to be contacted at time of dc and requests that dc summary be faxed to her @ [phone]. GIOVANNY will follow.
[2022-12-26 11:22] LABS: Glucose, Whole Blood 130 mg/dL (60-115)
[2022-12-26 17:08] LABS: Glucose, Whole Blood 283 mg/dL (60-115)
[2022-12-26] MEDS: Insulin Lispro 100 UNIT/ML 3 ML VIAL SUBCUT ×3 (17:09→21:48)
--- NOTE | 2022-12-26 18:47 | HO.PM.IMPN ---
Subjective Subjective Date of Service: 12/26/22 Interval History: seen and examined this morning follow up for respiratory failure breathing easier today, has not been ambulating much Review of Systems Review of Systems: Yes all other systems are reviewed and are negative Constitutional Constitutional: Denies chills and Denies fever(s) Cardiovascular Cardiovascular: Denies chest pain, Denies palpitations and Denies dyspnea Respiratory Respiratory: Denies dyspnea Endocrine Endocrine: Denies palpitations Physical Exam Vital Signs: Vital Signs: Last Vital Signs Temp 97.1 F 12/26/22 15:25 Pulse 100 12/26/22 15:25 Resp 16 12/26/22 15:25 BP 118/59 L 12/26/22 15:25 Pulse Ox 97 12/26/22 15:25 O2 Del Method Nasal Cannula 12/26/22 15:25 O2 Flow Rate 2.5 12/26/22 15:25 FiO2 30 12/23/22 06:59 BMI result Body Mass Index 34.6 Const: General: cooperative, comfortable, no acute distress, alert and awake Nutritional Appearance: overweight Orientation/consciousness: patient oriented x3 Resp: Other: dim, scattered exp wheeze Effort & Inspection: normal respiratory effort, able to speak in complete sentences, no respiratory distress and no use of accessory muscles Cardio: Rate: tachycardic GI: Inspection: No distended Palpation (GI): Soft to palpation Neuro: General: patient oriented x3 and moves all extremities Extrem: General: Yes no pedal edema Objective Data Active Medications Acetaminophen (Acetaminophen 325 Mg Tablet) 650 mg PO Q6H PRN PRN Reason: Pain, Mild (Pain Scale 1-3) Last Admin: 12/26/22 06:51 Dose: 650 mg Documented By: KAVON Albuterol/Ipratropium (Albuterol/Iprat 2.5/0.5mg 3 Ml Ampul.Neb) 3 ml INHALE RQ4H WHILE AWAKE REPLACED BY [facility] Last Admin: 12/26/22 16:05 Dose: Not Given Documented By: ROMULO Non-Admin Reason: Patient Refused Atorvastatin Calcium (Atorvastatin Calcium 20 Mg Tablet) 20 mg PO BEDTIME REPLACED BY [facility] Last Admin: 12/25/22 20:58 Dose: 20 mg Documented By: KAVON Azathioprine (Azathioprine 50 Mg Tablet) 50 mg PO DAILY REPLACED BY [facility] Last Admin: 12/26/22 08:54 Dose: 50 mg Documented By: DOMINIK Bupropion HCl (Bupropion Hcl 100 Mg Tablet) 100 mg PO DAILY REPLACED BY [facility] Last Admin: 12/26/22 08:59 Dose: Not Given Documented By: DOMINIK Non-Admin Reason: Patient Refused Calcitonin [place] (Calcitonin,[place],Synth Nasal 3.7 Ml Bottle) 1 spray NOSTRIL-B DAILY REPLACED BY [facility] Last Admin: 12/26/22 09:29 Dose: Not Given Documented By: DOMINIK Non-Admin Reason: Med Not Available Clonazepam (Clonazepam 1 Mg Tablet) 1 mg PO BID PRN PRN Reason: Anxiety Last Admin: 12/25/22 12:20 Dose: 1 mg Documented By: REAL Diltiazem HCl (Diltiazem Hcl Cd 180 Mg Cap.Er.24h) 360 mg PO DAILY REPLACED BY [facility]; Protocol Last Admin: 12/26/22 08:53 Dose: 360 mg Documented By: DOMINIK Docusate Sodium (Docusate Sodium 100 Mg Capsule) 100 mg PO BID PRN PRN Reason: constipation Enoxaparin Sodium (Enoxaparin Sodium 40 Mg/0.4 Ml Syringe) 40 mg SUBCUT Q24H REPLACED BY [facility] Last Admin: 12/26/22 06:48 Dose: 40 mg Documented By: KAVON Folic Acid (Folic Acid 1 Mg Tablet) 1 mg PO DAILY REPLACED BY [facility] Last Admin: 12/26/22 08:54 Dose: 1 mg Documented By: DOMINIK Gabapentin (Gabapentin 300 Mg Capsule) 300 mg PO BID REPLACED BY [facility] Last Admin: 12/26/22 08:54 Dose: 300 mg Documented By: DOMINIK Hydralazine HCl (Hydralazine Hcl 25 Mg Tablet) 25 mg PO TIDWM REPLACED BY [facility]; Protocol Last Admin: 12/26/22 17:09 Dose: 25 mg Documented By: DOMINIK Insulin Glargine (Insulin Glargine,Hum.Rec.Anlog 100 Unit/Ml 10 Ml Vial) 35 unit SUBCUT BEDTIME REPLACED BY [facility] Last Admin: 12/25/22 20:58 Dose: 35 unit Documented By: KAVON Insulin Human Lispro (Insulin Lispro 100 Unit/Ml 3 Ml Vial) 0 unit SUBCUT QIDACHS REPLACED BY [facility]; Protocol Last Admin: 12/26/22 17:09 Dose: 6 unit Documented By: DOMINIK Insulin Human Lispro (Insulin Lispro 100 Unit/Ml 3 Ml Vial) 4 unit SUBCUT TIDAC REPLACED BY [facility] Last Admin: 12/26/22 17:09 Dose: 4 unit Documented By: DOMINIK Lamotrigine (Lamotrigine 25 Mg Tablet) 150 mg PO BID REPLACED BY [facility] Last Admin: 12/26/22 08:54 Dose: 150 mg Documented By: DOMINIK Lisinopril (Lisinopril 10 Mg Tablet) 10 mg PO DAILY REPLACED BY [facility]; Protocol Last Admin: 12/26/22 08:54 Dose: 10 mg Documented By: DOMINIK Loratadine (Loratadine 10 Mg Tablet) 10 mg PO DAILY REPLACED BY [facility] Last Admin: 12/26/22 08:54 Dose: 10 mg Documented By: DOMINIK Metformin HCl (Metformin Hcl Er 500 Mg Tab.Er.24h) 1,000 mg PO BID REPLACED BY [facility] Last Admin: 12/26/22 08:53 Dose: 1,000 mg Documented By: DOMINIK Methadone HCl (Methadone Hcl 20 Mg/2 Ml Oral.Conc) 50 mg PO DAILY REPLACED BY [facility] Last Admin: 12/26/22 08:54 Dose: 50 mg Documented By: DOMINIK Montelukast Sodium (Montelukast Sodium 10 Mg Tablet) 10 mg PO BEDTIME REPLACED BY [facility] Last Admin: 12/25/22 21:00 Dose: 10 mg Documented By: KAVON Omeprazole (Omeprazole 40 Mg Capsule.Dr) 40 mg PO DAILY@0630 REPLACED BY [facility] Last Admin: 12/26/22 06:49 Dose: 40 mg Documented By: KAVON Pharmacy Consult (Consult Rx Vancomycin Dosing) 1 each MISCELLANE DAILY PRN PRN Reason: Consult order Polyethylene Glycol (Polyethylene Glycol 3350 17 Gm Powd.Pack) 17 gm PO DAILY REPLACED BY [facility] Last Admin: 12/26/22 09:00 Dose: Not Given Documented By: DOMINIK Non-Admin Reason: Patient Refused Prednisone (Prednisone 20 Mg Tablet) 40 mg PO DAILY REPLACED BY [facility] Last Admin: 12/26/22 08:54 Dose: 40 mg Documented By: DOMINIK Roflumilast (Roflumilast 500 Mcg Tablet) 500 mcg PO DAILY REPLACED BY [facility] Last Admin: 12/26/22 08:53 Dose: 500 mcg Documented By: HO.LESSARL Salmeterol Xinafoate (Salmeterol Xinafoate 50 Mcg Blst.W.Dev) 1 puff INHALE RBID ANA Last Admin: 12/26/22 07:51 Dose: 1 puff Documented By: ASHLEY Simethicone (Simethicone 80 Mg Tab.Chew) 80 mg PO QIDWMHS PRN PRN Reason: Abdominal Distention Sodium Biphosphate/Sodium Phosphate (Sodium Phosphate,[place]-Dibasic 133 Ml Enema) 133 ml [place] ONCE PRN PRN Reason: Constipation Last Admin: 12/21/22 22:56 Dose: 133 ml Documented By: CARLO Tramadol HCl (Tramadol Hcl 50 Mg Tablet) 25 mg PO Q6H PRN PRN Reason: Pain, Moderate(Pain Scale 4-6) Zolpidem Tartrate (Zolpidem Tartrate 5 Mg Tablet) 5 mg PO BEDTIME PRN PRN Reason: Sleep Labs 12/24/22 06:53 12/25/22 07:35 Labs: Laboratory Results - last 24 hr 12/25/22 12/26/22 12/26/22 20:23 07:28 11:18 POC Glucose 237 H 106 130 H 12/26/22 16:46 POC Glucose 283 H Microbiology Microbiology Results: Microbiology 12/20/22 20:09 Blood Culture - Final Blood - Venous No growth after 5 days. 12/20/22 01:00 Blood Culture - Final Blood - Venous No growth after 5 days. Assessment and Plan (1) CHITO (obstructive sleep apnea): Status: Acute (2) Obesity with alveolar hypoventilation: Status: Acute Plan 52-year-old woman with history of chronic respiratory failure, hypercarbic respiratory failure with COPD and asthma overlap admitted to the ICU for acute respiratory failure. Initially placed on BiPAP. She had an episode of vomiting. She developed worsening encephalopathy and ABGs showed worsening hypoxic and hypercapnic respiratory failure requiring emergent intubation. She was treated with IV steroids an empiric antibiotics for aspiration pneumonia. Extubated 12/22/2022 and placed on BiPAP. Patient was transferred to medical telemetry floor on 12/23/2022. Acute on chronic hypoxic, hypercarbic respiratory failure secondary to COPD/asthma overlap syndrome Required intubation. Respiratory status improved significantly. Now BiPAP as needed during the day and at bedtime Continue prednisone 40 mg daily, scheduled albuterol Follow oxygen requirements closely resp status improving Hypertension stable blood pressure Continue lisinopril, hydralazine hypokalemia/hypernatremia . both mild resolved History of heart failure with preserved ejection fraction No exacerbation, continue furosemide, diltiazem Diabetes mellitus type 2 Sliding scale, Lantus at bedtime, metformin, mealtime insulin ADA diet Mental health Continue home medications Chronic opiate dependence Continue methadone Obesity. BMI 34.6 Discussed importance of weight management as this may be contributing to worsening of other comorbidities DVT prophylaxis with lovenox attending Dr. Meehan Full code seen by PT - rec home with services Continued hospital stay for treatment of acute hypoxic and hypercapnic respiratory failure requiring scheduled respiratory treatments and BiPAP support Time Spent With Patient Time: Total time managing care of this patient today ____ minutes. Quality Stroke Does the patient have a stroke diagnosis?: No VTE Prior VTE?: No VTE Risk Level:: Medical - moderate - high VTE Device Contraindication: N/A - Device Ordered VTE Drug Contraindication: N/A - Med Ordered
[2022-12-26 20:48] LABS: Glucose, Whole Blood 160 mg/dL (60-115)
[2022-12-26] MEDS: Insulin Glargine,Hum.rec.anlog 100 UNIT/ML 10 ML VIAL 35 UNIT SUBCUT (21:48)
[2022-12-26] MEDS: Montelukast Sodium 10 MG TABLET PO (21:50)
[2022-12-26] MEDS: Atorvastatin Calcium 20 MG TABLET PO (21:50)
[2022-12-27] VITALS (7 sets, daily range): BP systolic 123–157; BP diastolic 58–69; PULSE 86–119; RESP 19–22; TEMP 36.3–37; O2SAT 92–98
[2022-12-27] MEDS: Enoxaparin Sodium 40 MG/0.4 ML SYRINGE SUBCUT (05:24)
[2022-12-27] MEDS: Omeprazole 40 MG CAPSULE.DR PO (05:35)
[2022-12-27 07:59] LABS: Glucose, Whole Blood 79 mg/dL (60-115)
[2022-12-27] MEDS: Albuterol/Iprat 2.5/0.5MG 3 ML AMPUL.NEB INHALE ×3 (08:29→15:02)
[2022-12-27] MEDS: Salmeterol Xinafoate 50 MCG BLST.W.DEV 1 PUFF INHALE (08:29)
[2022-12-27] MEDS: predniSONE 20 MG TABLET 40 MG PO (09:34)
[2022-12-27] MEDS: lamoTRIgine 25 MG TABLET 150 MG PO (09:34)
[2022-12-27] MEDS: metFORMIN HCl ER 500 MG TAB.ER.24H 1000 MG PO (09:34)
[2022-12-27] MEDS: Gabapentin 300 MG CAPSULE PO (09:35)
[2022-12-27] MEDS: dilTIAZem HCL CD 180 MG CAP.ER.24H 360 MG PO (09:35)
[2022-12-27] MEDS: Roflumilast 500 MCG TABLET PO (09:35)
[2022-12-27] MEDS: lisinopriL 10 MG TABLET PO (09:35)
[2022-12-27] MEDS: Loratadine 10 MG TABLET PO (09:35)
[2022-12-27] MEDS: azaTHIOprine 50 MG TABLET PO (09:36)
[2022-12-27] MEDS: methADONE HCl 20 MG/2 ML ORAL.CONC 50 MG PO (09:36)
[2022-12-27] MEDS: hydrALAZINE HCl 25 MG TABLET PO ×2 (09:36→11:10)
--- NOTE | 2022-12-27 10:19 | P.PNIM_ITS ---
Subjective Subjective Date of Service: 12/27/22 Interval History: seen and examined this morning follow up for copd exacerbation/respiratory failure feeling ok this am, no sob at rest Review of Systems Review of Systems: Yes all other systems are reviewed and are negative Constitutional Constitutional: Denies chills and Denies fever(s) Cardiovascular Cardiovascular: Denies chest pain, Denies palpitations, Denies dyspnea and Reports dyspnea on exertion Respiratory Respiratory: Denies dyspnea and Reports dyspnea on exertion Gastrointestinal Gastrointestinal: Denies abdominal pain Endocrine Endocrine: Denies palpitations Physical Exam 2 Vital Signs: Vital Signs: Last Vital Signs Temp 97.3 F 12/27/22 07:15 Pulse 119 H 12/27/22 08:31 Resp 20 12/27/22 08:31 BP 157/69 H 12/27/22 07:15 Pulse Ox 98 12/27/22 07:15 O2 Del Method Nasal Cannula 12/27/22 07:15 O2 Flow Rate 2 12/27/22 07:15 FiO2 30 12/23/22 06:59 BMI result Body Mass Index 34.6 Const: General: cooperative, comfortable, no acute distress, alert and awake Nutritional Appearance: overweight Orientation/consciousness: patient oriented x3 Resp: Other: dim, scattered exp wheeze Effort & Inspection: normal respiratory effort, able to speak in complete sentences, no respiratory distress and no use of accessory muscles Cardio: Rate: tachycardic GI: Inspection: No distended Palpation (GI): Soft to palpation Neuro: General: patient oriented x3 and moves all extremities Extrem: General: Yes no pedal edema Objective Data Active Medications Acetaminophen (Acetaminophen 325 Mg Tablet) 650 mg PO Q6H PRN PRN Reason: Pain, Mild (Pain Scale 1-3) Last Admin: 12/26/22 06:51 Dose: 650 mg Documented By: KAVON Albuterol/Ipratropium (Albuterol/Iprat 2.5/0.5mg 3 Ml Ampul.Neb) 3 ml INHALE RQ4H WHILE AWAKE [facility] Last Admin: 12/27/22 08:29 Dose: 3 ml Documented By: WILLIAM Atorvastatin Calcium (Atorvastatin Calcium 20 Mg Tablet) 20 mg PO BEDTIME [facility] Last Admin: 12/26/22 21:50 Dose: 20 mg Documented By: CHAVA Azathioprine (Azathioprine 50 Mg Tablet) 50 mg PO DAILY [facility] Last Admin: 12/27/22 09:36 Dose: 50 mg Documented By: KATIUSKA Bupropion HCl (Bupropion Hcl 100 Mg Tablet) 100 mg PO DAILY [facility] Last Admin: 12/27/22 09:44 Dose: Not Given Documented By: KATIUSKA Non-Admin Reason: Patient Refused Calcitonin [place] (Calcitonin,[place],Synth Nasal 3.7 Ml Bottle) 1 spray NOSTRIL-B DAILY [facility] Last Admin: 12/27/22 09:37 Dose: 1 spray Documented By: KATIUSKA Clonazepam (Clonazepam 1 Mg Tablet) 1 mg PO BID PRN PRN Reason: Anxiety Last Admin: 12/25/22 12:20 Dose: 1 mg Documented By: REAL Diltiazem HCl (Diltiazem Hcl Cd 180 Mg Cap.Er.24h) 360 mg PO DAILY [facility]; Protocol Last Admin: 12/27/22 09:35 Dose: 360 mg Documented By: KATIUSKA Docusate Sodium (Docusate Sodium 100 Mg Capsule) 100 mg PO BID PRN PRN Reason: constipation Enoxaparin Sodium (Enoxaparin Sodium 40 Mg/0.4 Ml Syringe) 40 mg SUBCUT Q24H [facility] Last Admin: 12/27/22 05:24 Dose: 40 mg Documented By: CHAVA Folic Acid (Folic Acid 1 Mg Tablet) 1 mg PO DAILY [facility] Last Admin: 12/26/22 08:54 Dose: 1 mg Documented By: DOMINIK Gabapentin (Gabapentin 300 Mg Capsule) 300 mg PO BID [facility] Last Admin: 12/27/22 09:35 Dose: 300 mg Documented By: KATIUSKA Hydralazine HCl (Hydralazine Hcl 25 Mg Tablet) 25 mg PO TIDWM [facility]; Protocol Last Admin: 12/27/22 09:36 Dose: 25 mg Documented By: KATIUSKA Insulin Glargine (Insulin Glargine,Hum.Rec.Anlog 100 Unit/Ml 10 Ml Vial) 35 unit SUBCUT BEDTIME [facility] Last Admin: 12/26/22 21:48 Dose: 35 unit Documented By: CHAVA Insulin Human Lispro (Insulin Lispro 100 Unit/Ml 3 Ml Vial) 0 unit SUBCUT QIDACHS [facility]; Protocol Last Admin: 12/27/22 07:33 Dose: Not Given Documented By: KATIUSKA Non-Admin Reason: See Note Insulin Human Lispro (Insulin Lispro 100 Unit/Ml 3 Ml Vial) 4 unit SUBCUT TIDAC [facility] Last Admin: 12/27/22 08:01 Dose: Not Given Documented By: KATIUSKA Non-Admin Reason: See Note Lamotrigine (Lamotrigine 25 Mg Tablet) 150 mg PO BID [facility] Last Admin: 12/27/22 09:34 Dose: 150 mg Documented By: KATIUSKA Lisinopril (Lisinopril 10 Mg Tablet) 10 mg PO DAILY [facility]; Protocol Last Admin: 12/27/22 09:35 Dose: 10 mg Documented By: KATIUSKA Loratadine (Loratadine 10 Mg Tablet) 10 mg PO DAILY [facility] Last Admin: 12/27/22 09:35 Dose: 10 mg Documented By: KATIUSKA Metformin HCl (Metformin Hcl Er 500 Mg Tab.Er.24h) 1,000 mg PO BID [facility] Last Admin: 12/27/22 09:34 Dose: 1,000 mg Documented By: KATIUSKA Methadone HCl (Methadone Hcl 20 Mg/2 Ml Oral.Conc) 50 mg PO DAILY [facility] Last Admin: 12/27/22 09:36 Dose: 50 mg Documented By: KATIUSKA Montelukast Sodium (Montelukast Sodium 10 Mg Tablet) 10 mg PO BEDTIME [facility] Last Admin: 12/26/22 21:50 Dose: 10 mg Documented By: CHAVA Omeprazole (Omeprazole 40 Mg Capsule.Dr) 40 mg PO DAILY@0630 [facility] Last Admin: 12/27/22 05:35 Dose: 40 mg Documented By: CHAVA Pharmacy Consult (Consult Rx Vancomycin Dosing) 1 each MISCELLANE DAILY PRN PRN Reason: Consult order Polyethylene Glycol (Polyethylene Glycol 3350 17 Gm Powd.Pack) 17 gm PO DAILY [facility] Last Admin: 12/27/22 10:18 Dose: Not Given Documented By: KATIUSKA Non-Admin Reason: Patient Refused Prednisone (Prednisone 20 Mg Tablet) 40 mg PO DAILY [facility] Last Admin: 12/27/22 09:34 Dose: 40 mg Documented By: KATIUSKA Roflumilast (Roflumilast 500 Mcg Tablet) 500 mcg PO DAILY [facility] Last Admin: 12/27/22 09:35 Dose: 500 mcg Documented By: KATIUSKA Salmeterol Xinafoate (Salmeterol Xinafoate 50 Mcg Blst.W.Dev) 1 puff INHALE RBID ANA Last Admin: 12/27/22 08:29 Dose: 1 puff Documented By: WILLIAM Simethicone (Simethicone 80 Mg Tab.Chew) 80 mg PO QIDWMHS PRN PRN Reason: Abdominal Distention Sodium Biphosphate/Sodium Phosphate (Sodium Phosphate,[place]-Dibasic 133 Ml Enema) 133 ml [place] ONCE PRN PRN Reason: Constipation Last Admin: 12/21/22 22:56 Dose: 133 ml Documented By: CARLO Tramadol HCl (Tramadol Hcl 50 Mg Tablet) 25 mg PO Q6H PRN PRN Reason: Pain, Moderate(Pain Scale 4-6) Zolpidem Tartrate (Zolpidem Tartrate 5 Mg Tablet) 5 mg PO BEDTIME PRN PRN Reason: Sleep Labs 12/24/22 06:53 12/25/22 07:35 Labs: Laboratory Results - last 24 hr 12/26/22 12/26/22 12/26/22 11:18 16:46 20:43 POC Glucose 130 H 283 H 160 H 12/27/22 07:23 POC Glucose 79 Assessment and Plan (1) Obesity with alveolar hypoventilation: Status: Acute (2) COPD exacerbation: Status: Acute Plan 52-year-old woman with history of chronic respiratory failure, hypercarbic respiratory failure with COPD and asthma overlap admitted to the ICU for acute respiratory failure. Initially placed on BiPAP. She had an episode of vomiting. She developed worsening encephalopathy and ABGs showed worsening hypoxic and hypercapnic respiratory failure requiring emergent intubation. She was treated with IV steroids an empiric antibiotics for aspiration pneumonia. Extubated 12/22/2022 and placed on BiPAP. Patient was transferred to medical telemetry floor on 12/23/2022. Acute on chronic hypoxic, hypercarbic respiratory failure secondary to COPD/asthma overlap syndrome Required intubation. Respiratory status improved significantly. Now BiPAP as needed during the day and at bedtime Continue prednisone 40 mg daily, scheduled albuterol Follow oxygen requirements closely resp status improving sputum culture growing filamentous fungus - pulm consult pending Hypertension stable blood pressure Continue lisinopril, hydralazine hypokalemia/hypernatremia . both mild resolved History of heart failure with preserved ejection fraction No exacerbation, continue furosemide, diltiazem Diabetes mellitus type 2 with hyperglycemia elevated sugar r/t steroids, now improved Sliding scale, Lantus at bedtime, metformin, mealtime insulin ADA diet Mental health Continue home medications Chronic opiate dependence Continue methadone Obesity. BMI 34.6 Discussed importance of weight management as this may be contributing to worsening of other comorbidities DVT prophylaxis with lovewarrenx attending Dr. Jones Full code seen by PT - rec home with services Continued hospital stay for treatment of acute hypoxic and hypercapnic respiratory failure requiring scheduled respiratory treatments and BiPAP support Time Spent With Patient Time: Total time managing care of this patient today ____ minutes. Quality Stroke Does the patient have a stroke diagnosis?: No VTE Prior VTE?: No VTE Risk Level:: Medical - moderate - high VTE Device Contraindication: N/A - Device Ordered VTE Drug Contraindication: N/A - Med Ordered
--- NOTE | 2022-12-27 10:22 | P.CDIM_ITS ---
PROVIDER RESPONSE TEXT: To clarify, the appropriate diagnosis supported by the clinical indicators: Diabetes mellitus Type 2 with hyperglycemia QUERY TEXT: PHYSICIAN'S DOCUMENTATION REQUEST Date of Query: 12/27/2022 08:10 AM EDT Patient Name: Anju Tanner I Admit Date: 12/21/2022 Dear Ginger Ma, A review of the medical record indicates additional documentation may be needed. Please review below and update the documentation accordingly. Clinical Indicators: LAB FINDINGS: 12/22 POC glucose 328 H 359 H 255 H Insulin Please clarify the following regarding the Complications of Diabetes Mellitus (DM): Diabetes mellitus Type 2 with hyperglycemia Other etiology of lab findings please specify Other (explain)Clinically unable to determine (explain)Thank you, Daina Silva, CCS, CDIS Use of terms such as suspected, likely, concern for, or probable (associated with a specific diagnosi s that is being evaluated, monitored, or treated as if it exists) are acceptable and can be coded in the inpatient se tting, when documented at the time of discharge. Please use your independent medical judgment in providing your response. THIS QUERY IS PART OF THE PERMANENT MEDICAL RECORD
[2022-12-27] MEDS: Folic Acid 1 MG TABLET PO (10:33)
[2022-12-27] MEDS: ondansetron HCL 4 MG/2 ML VIAL IVPUSH (10:41)
--- NOTE | 2022-12-27 10:47 | MHC.CM.PN ---
Per ROUNDS discussion, Patient is not yet medically cleared for dc (Pulmonary Consult needed r/t sputum growing fungus); home with services is the goal and CM will continue to follow.
[2022-12-27 11:11] LABS: Glucose, Whole Blood 126 mg/dL (60-115)
[2022-12-27] MEDS: Insulin Lispro 100 UNIT/ML 3 ML VIAL SUBCUT (12:56)
--- NOTE | 2022-12-27 13:14 | P.PNPL_ITS ---
Subjective Subjective Date of Service: 12/27/22 Interval history: Respiratory status significantly improved and appears to be at baseline. Objective Data Labs 12/24/22 06:53 12/25/22 07:35 Labs: Laboratory Results - last 24 hr 12/26/22 12/26/22 12/27/22 16:46 20:43 07:23 POC Glucose 283 H 160 H 79 12/27/22 10:53 POC Glucose 126 H Microbiology Microbiology Results: Microbiology 12/20/22 20:09 Blood - Venous Blood Culture - Final No growth after 5 days. 12/20/22 01:00 Blood - Venous Blood Culture - Final No growth after 5 days. 12/21/22 05:25 Sputum - Suctioned Gram Stain - Final 12/21/22 05:25 Sputum - Suctioned Sputum Culture - Preliminary Filamentous fungus Physical Exam 2 Vital Signs: Vital Signs: Last Vital Signs Temp 97.3 F 12/27/22 10:51 Pulse 112 H 12/27/22 11:29 Resp 20 12/27/22 11:29 BP 126/65 12/27/22 10:51 Pulse Ox 97 12/27/22 10:51 O2 Del Method Nasal Cannula 12/27/22 10:51 O2 Flow Rate 2 12/27/22 10:51 FiO2 30 12/23/22 06:59 BMI result Body Mass Index 34.6 Const: General: no acute distress, alert and awake Eyes: Sclerae: sclerae normal EOM: EOMs intact bilaterally Neck: Neck: Yes no lymphadenopathy, Yes trachea midline and Yes supple Resp: Effort & Inspection: normal respiratory effort and no respiratory distress Auscultation: clear to auscultation bilaterally Cardio: Rate: regular rate Rhythm: regular rhythm Heart sounds: no gallops, no murmurs and no rubs GI: Palpation (GI): Soft to palpation and Other GI palpation findings present ( Nontender) Auscultation: normal bowel sounds Extrem: General: Yes no pedal edema, No clubbing and No cyanosis Procedures Date of Service Date of Service: 12/27/22 Assessment and Plan Assessment and plan (1) CHITO (obstructive sleep apnea): Status: Acute (2) Cor pulmonale: Status: Acute (3) Asthma-COPD overlap syndrome: Status: Acute Plan Impression/recommendations: 52-year-old lady with multiple admissions for acute on chronic hypoxic hypercapnic respiratory failure secondary to underlying cor pulmonale, CHITO/obesity hypoventilation, asthma/COPD overlap syndrome, now essentially at baseline. Results of microbiologic testing reviewed, significance of isolated filamentous fungus is unclear and there no clinical signs of a fungal process, may be colonization or contamination. At this time would continue on the current regimen with outpatient pulmonary follow-up within 2 weeks of discharge. Time Spent With Patient Time: Total time managing care of this patient today ____ minutes. Progress Note: Quality Stroke Does the patient have a stroke diagnosis?: No
--- NOTE | 2022-12-27 14:11 | MHC.CM.PN ---
Per PA, Patient will be medically cleared for dc to home today, with services. Patient is active with [facility], who has been notified of today's dc. GIOVANNY spoke with Maggie from the [facility] ([phone]), who is arranging resumption of home delivered Methadone. GIOVANNY spoke with Patient's 2 contacts at listed #s and Latonia/Caregiver will transport to home around 3 PM today. DC summary and Last Dose letter will be faxed to Maggie @ [phone].
--- NOTE | 2022-12-27 14:27 | P.F2F_ITS ---
Service Date Service Date: 12/27/22 Encounter Date of encounter: 12/27/22 Reasons for Services Signs and symptoms assessed: needs PT for transfer, gait training, therapeutic exercise, safety/balance Reason for physical therapy: home safety and mobility, therapeutic exercises and gait/transfer training Overseeing Care: Kelli Benavides Homebound: Leaving the home is medically contraindicated at this time without the asist of a device and/or another person due th the listed conditions above and below. Reason homebound: unsteady gait / fall risk Certification: Based on the above findings, I certify that this patient is confined to the home and needs intermittent correction care, physical therapy and/or speech therapy, or continues to need occupational therapy. The patient is under my care, and I have initiated the establishment of the plan of care. The patient will be followed by a physician who will periodically review the plan of care. Time Spent With Patient Time: Total time managing care of this patient today ____ minutes.
--- NOTE | 2022-12-27 14:28 | PM.DS ---
DS: Providers Provider Date of Service: 12/27/22 Date of admission: 12/21/22 03:49 Date of discharge: 12/27/22 Primary care physician: Kelli Benavides MD Attending physician on discharge: Anant Jones Discharging clinician: Ginger Ma DS: Diagnosis Discharge Diagnosis (1) Acute on chronic respiratory failure with hypoxia and hypercapnia: Status: Acute (2) CHITO (obstructive sleep apnea): Status: Acute (3) Cor pulmonale: Status: Acute (4) Asthma-COPD overlap syndrome: Status: Acute DS: Summary Hospital Course Hospital Course: From H&P on day of admission The patient is a 52-year-old woman with a past medical history of asthma COPD overlap syndrome, chronic? hypercarbic and hypoxic respiratory failure currently on 2l via [place] home oxygen,? diabetes mellitus, hypertension, hyperlipidemia, tobacco use, and Hypogammaglobulinemia on IVIG,? opioid dependence on methadone who presented to emergency department [facility] with dyspnea. ? The patient reported worsening shortness of breath in the past few days administer several DuoNebs at home without relief, EMS provided steroids/magnesium/DuoNeb and patient was noted to have 80% O2 sats when EMS arrived.? On arrival to the emergency department patient was on CPAP,? and tachypneic.? She was placed on BiPAP which initially worked, but laterl patient became nauseous and vomited and required oxymask.? On OxyMask patient mental status worsened,? ABGs showing worsening hypoxic hypercapnic respiratory failure require emergent intubation in the emergency department.? ?Laboratory data significant for WBC? 13.8, chloride 93 and serum bicarb? 36, BUN 17 ?Vbgs as following? 7.19/108/90/42 ED course:? she received albuterol 7.5 mg x 2, ? cefepime 1 g? and zofran 52-year-old woman with history of chronic respiratory failure, hypercarbic respiratory failure with COPD and asthma overlap admitted to the ICU for acute respiratory failure. Initially placed on BiPAP. She had an episode of vomiting. She developed worsening encephalopathy and ABGs showed worsening hypoxic and hypercapnic respiratory failure requiring emergent intubation. She was treated with IV steroids an empiric antibiotics for aspiration pneumonia and diuresed with IV lasix. Extubated 12/22/2022 and placed on BiPAP. Patient was transferred to medical telemetry floor on 12/23/2022. Acute on chronic hypoxic, hypercarbic respiratory failure secondary to COPD/asthma overlap syndrome with component of aspiration pneumonitis. Required intubation, extubated 12/22. Treated with system steroids, breathing treatments and weaned to po prednione. Respiratory status has improved significantly. Continue home BiPAP as needed during the day and at bedtime. Weaned down to baseline home oxygen,back to baseline respiratory status. Will be sent home with prednisone taper. sputum culture growing filamentous fungus, seen by pulmonology - significance of isolated filamentous fungus is unclear and there are no clinical signs of a fungal process, may be colonization or contamination. recommend outpatient follow up with primary manufacturer's service representative in the next two weeks. Theophylline was held during ICU stay, will d/c on discharge until follow up with pulmonology. Hypertension stable blood pressure . dose of lisinopril decreased to 10 mg. continued on hydralazine, diltiazem History of heart failure with preserved ejection fraction . Diuresed in the ICU, currently euvolemic. continue home dose of furosemide seen by PT - rec home with services. Time Spent with Patient Time attestation: Total time managing care of this patient today ____ minutes. Discharge coordination time: Greater than 30 minutes Quality: Safe Use of Opioids Does Pt have an Active Cancer Diagnosis on the Problem List?: No Quality: Stroke Does the patient have a stroke diagnosis?: No Physical Exam Vital Signs: Vital Signs: Last Vital Signs Temp 97.3 F 12/27/22 10:51 Pulse 112 H 12/27/22 11:29 Resp 20 12/27/22 11:29 BP 126/65 12/27/22 10:51 Pulse Ox 97 12/27/22 10:51 O2 Del Method Nasal Cannula 12/27/22 10:51 O2 Flow Rate 2 12/27/22 10:51 FiO2 30 12/23/22 06:59 BMI result Body Mass Index 34.6 Const: General: cooperative, comfortable, no acute distress, alert and awake Nutritional Appearance: overweight Orientation/consciousness: patient oriented x3 Resp: Other: dim Effort & Inspection: normal respiratory effort, able to speak in complete sentences, no respiratory distress and no use of accessory muscles GI: Inspection: No distended Palpation (GI): Soft to palpation Neuro: General: patient oriented x3 and moves all extremities Extrem: General: Yes no pedal edema DS: Data Data Completed and Pending Completed studies during hospitalization [Text1]: Procedures Assistance with Respiratory Ventilation, 24-96 Consecutive Hours, Continuous Positive Airway Pressure (05/18/21) Assistance with Respiratory Ventilation, Less than 24 Consecutive Hours, Continuous Positive Airway Pressure (10/19/22) Insertion of Endotracheal Airway into Trachea, Via Natural or Artificial Opening (12/21/21) Insertion of Infusion Device into Right Atrium, Percutaneous Approach (12/21/21) Insertion of Infusion Device into Right Brachial Vein, Percutaneous Approach (07/28/22) Insertion of Infusion Device into Superior Vena Cava, Percutaneous Approach (11/02/21) Insertion of Infusion Device into Upper Vein, Percutaneous Approach (10/19/22) Introduction of Vasopressor into Peripheral Vein, Percutaneous Approach (12/21/21) Respiratory Ventilation, 24-96 Consecutive Hours (12/21/21) Ultrasonography of Superior Vena Cava, Guidance (12/21/21) Labs on day of discharge: Laboratory Results - last 24 hr 12/26/22 12/26/22 12/27/22 16:46 20:43 07:23 POC Glucose 283 H 160 H 79 12/27/22 10:53 POC Glucose 126 H Preliminary micro results at discharge 12/21/22 05:25 Sputum Culture - Preliminary Sputum - Suctioned Filamentous fungus Discharge Plan Discharge Anticipated Discharge Date/Time: 12/27/22 14:26 Patient Disposition: Home Health Service Discharge Diagnosis: acute on chronic respiratory failure with hypoxia/hypercarbia acute exacerbation of COPD Referrals: [facility] [Other] - 1 Week Allan Brito MD [Physician] - 1 Week Kelli Benavides MD [Primary Care Provider] - 1 Week Discharge Medications: New lisinopril 10 mg Tablet 10 mg PO DAILY 30 Days Qty: 30 0RF Protocol: Hold for SBP< HOLD for SBP < : 90 prednisone 10 mg tablet See Taper PO DIRECTED Qty: 30 0RF Taper: Prednisone 30 mg daily for 5 Days and 0 Hour 20 mg daily for 5 Days and 0 Hour 10 mg daily for 5 Days and 0 Hour Rx Instructions: see taper instructions Continued Brovana 15 mcg/2 mL solution for nebulization 2 ml inhalation Q12H 30 Days Qty: 120 11RF Spiriva with HandiHaler 18 mcg capsule, w/inhalation device 1 cap inhalation DAILY Qty: 30 11RF budesonide 0.5 mg/2 mL suspension for nebulization 0.5 mg inhalation BID Qty: 120 11RF ipratropium-albuterol 0.5 mg-3 mg(2.5 mg base)/3 mL solution for nebulization 3 ml PO Q4H PRN (Reason: for wheezing) Qty: 540 6RF sodium chloride 7 % solution for nebulization 4 ml inhalation BID Qty: 240 11RF omeprazole 40 mg capsule,delayed release(DR/EC) 40 mg PO DAILY@0630 30 Days Qty: 30 6RF diltiazem HCl [Tiadylt ER] 360 mg capsule,extended release 24 hr 360 mg PO DAILY rosuvastatin 5 mg tablet 5 mg PO BEDTIME roflumilast [Daliresp] 500 mcg tablet 500 mcg PO DAILY metformin 500 mg tablet extended release 24 hr 1,000 mg PO BID hydralazine 25 mg tablet 25 mg PO TIDWM insulin lispro 100 unit/mL solution 4 unit subcut TIDAC methadone 10 mg/mL Concentrate 50 mg PO DAILY Patient Comments: [facility] PIC[facility] UP AND ADMINISTERS simethicone [Gas Relief (simethicone)] 80 mg Tablet,Chewable 80 mg PO QIDWMHS PRN (Reason: Abdominal Distention) Qty: 30 0RF lamotrigine 150 mg tablet 150 mg PO BID alendronate 70 mg tablet 70 mg PO QWEEK lidocaine 5 % adhesive patch,medicated 1 patch topical DAILY Rx Instructions: APPLY FOR 12 HOURS THEN REMOVE FOR 12 HOURS cholecalciferol (vitamin D3) 1,250 mcg (50,000 unit) capsule 1,250 mcg PO SA@0900 calcitonin (salmon) 200 unit/actuation spray,non-aerosol 1 spray intranasal DAILY Rx Instructions: one nostril every day, alternate sides. insulin glargine [Lantus U-100 Insulin] 100 unit/mL solution 35 unit subcut BEDTIME gabapentin 300 mg capsule 300 mg PO BID docusate sodium 100 mg capsule 100 mg PO BID PRN (Reason: constipation) zolpidem 5 mg tablet 5 mg PO BEDTIME PRN (Reason: Sleep) clonazepam 1 mg tablet 1 mg PO BID PRN (Reason: Anxiety) ibuprofen 600 mg tablet 600 mg PO Q8H PRN (Reason: Pain) bupropion HCl 100 mg tablet 100 mg PO DAILY Serevent Diskus 50 mcg/dose blister with device 1 inh INHALATION BID polyethylene glycol 3350 [Miralax] 17 gram/dose powder 17 g PO DAILY azathioprine [Imuran] 50 mg tablet 50 mg PO DAILY diclofenac potassium 50 mg Tablet 50 mg PO TID PRN (Reason: Pain) montelukast 10 mg tablet 10 mg PO BEDTIME albuterol sulfate [ProAir HFA] 90 mcg/actuation HFA aerosol inhaler 2 puff inhalation Q4H PRN (Reason: Shortness Of Breath Or Wheezing) loratadine [Claritin] 10 mg tablet 10 mg PO DAILY sulfamethoxazole-trimethoprim [Bactrim] 400-80 mg tablet 1 tab PO DAILY Qty: 30 4RF furosemide [Lasix] 20 mg tablet 20 mg PO DAILY 30 Days Qty: 30 2RF folic acid 1 mg tablet 1 mg PO DAILY 30 Days Qty: 30 6RF Held theophylline 450 mg tablet extended release 12 hr 450 mg PO Q12H 30 Days Qty: 60 6RF Hold Instructions: hold until follow up with pulmonology Discontinued lisinopril 40 mg tablet 40 mg PO DAILY prednisone 10 mg tablet 40 mg PO DAILY 30 Days Qty: 120 2RF No Action prednisone 10 mg tablet 30 mg PO DAILY 30 Days Qty: 90 3RF (DME) nebulizers Misc See Rx Instructions .ROUTE Rx Instructions: As directed Discharge Orders: Discharge Order (Routine); Ordered 12/27/22 Ordered By: Ginger Ma Activity on Discharge: As tolerated Stand Alone Forms: Patient Portal Discharge page Care Plan Goals: see below Health Concerns: acute on chronic hypoxic and hypercarbic respiratory failure secondary to acute COPD exacerbation requiring mechanical ventilation Plan of Treatment: stop smoking take prednisone as prescribed dose of lisinopril decreased call to schedule follow up with pulmonology within the next two weeks stop theophylline until follow up with pulmonology use bipap machine every night and for naps return with any shortness of breath Assessment: see discharge summary Discharge Date/Time: 12/27/22 15:55
[2022-12-27 15:30] LABS: Glucose, Whole Blood 174 mg/dL (60-115)
[2022-12-30 00:48] LABS: Legionella Ag Urine Not Detected (Not Detected)
== END 2022-12-27 15:55 | disposition home health service (06) | DRG 140 ==
LOC: HO.ED 22:51 → HO.ICU 12-21 03:56 → HO.IMC 12-23 08:36
PROVIDERS: Nurse Practitioner Acute Care; Admitting Provider Registered Nurse Community Health; Emergency Provider Student in an Organized Health Care Education/Training Program; PCP Family Medicine; Visit Provider Physician Assistant Medical
DX: J44.1 Chronic obstructive pulmonary disease with (acute) exacerbation (principal); J96.21 Acute and chronic respiratory failure with hypoxia; G93.41 Metabolic encephalopathy; I27.81 Cor pulmonale (chronic); D80.1 Nonfamilial hypogammaglobulinemia; E66.2 Morbid (severe) obesity with alveolar hypoventilation; E87.0 Hyperosmolality and hypernatremia; I11.0 Hypertensive heart disease with heart failure; I50.32 Chronic diastolic (congestive) heart failure; Z68.35 Body mass index [BMI] 35.0-35.9, adult; E87.6 Hypokalemia; E11.65 Type 2 diabetes mellitus with hyperglycemia; F11.20 Opioid dependence, uncomplicated; F17.290 Nicotine dependence, other tobacco product, uncomplicated; J96.22 Acute and chronic respiratory failure with hypercapnia; Z20.822 Contact with and (suspected) exposure to COVID-19; Z71.6 Tobacco abuse counseling; Z79.4 Long term (current) use of insulin; Z79.899 Other long term (current) drug therapy
CPT/HCPCS: 36415; 71045; 71250; 74176; 80048; 80053; 80202; 81003; 82040; 82784; 82803; 82947; 83605; 83735; 83880; 84100; 85025; 85610; 87040; 87070; 87107; 87205; 87449; 87633; 87899; 93005; 94002; 94003; 94640; 94660; 94799; 97162; 99285; C1758; J0330; J0692; J1650; J2250; J2405; J2543; J2930; J3010; J3370; J3371

== ENCOUNTER → 2022-12-21 03:49 | Outpatient (BNV) | payer MEDICAID, SELFPAY | PROVIDERS: Admitting Provider Registered Nurse Community Health; Emergency Provider Student in an Organized Health Care Education/Training Program; Visit Provider Internal Medicine Pulmonary Disease | DX: I27.81 Cor pulmonale (chronic) (principal); J44.9 Chronic obstructive pulmonary disease, unspecified; G47.33 Obstructive sleep apnea (adult) (pediatric) | CPT/HCPCS: 99232 ==

== ENCOUNTER → 2022-12-21 03:49 | Outpatient (BNV) | payer MEDICAID, SELFPAY | PROVIDERS: Admitting Provider Registered Nurse Community Health; Emergency Provider Student in an Organized Health Care Education/Training Program; Visit Provider Nurse Practitioner Acute Care | DX: J96.12 Chronic respiratory failure with hypercapnia (principal); J44.9 Chronic obstructive pulmonary disease, unspecified | CPT/HCPCS: 99232; 99239; 99499; G0180 ==

== ENCOUNTER → 2022-12-21 03:49 | Outpatient (BNV) | payer MEDICAID, SELFPAY | PROVIDERS: Admitting Provider Registered Nurse Community Health; Emergency Provider Student in an Organized Health Care Education/Training Program; Visit Provider Registered Nurse Community Health | DX: I50.9 Heart failure, unspecified (principal); E66.2 Morbid (severe) obesity with alveolar hypoventilation; J44.1 Chronic obstructive pulmonary disease with (acute) exacerbation; T17.908A Unspecified foreign body in respiratory tract, part unspecified causing other injury, initial encounter; J96.21 Acute and chronic respiratory failure with hypoxia; J96.22 Acute and chronic respiratory failure with hypercapnia; Z72.0 Tobacco use; D80.1 Nonfamilial hypogammaglobulinemia; M79.89 Other specified soft tissue disorders; K59.00 Constipation, unspecified; J45.41 Moderate persistent asthma with (acute) exacerbation; J96.12 Chronic respiratory failure with hypercapnia | CPT/HCPCS: 36556; 99291; 99292 ==

== ENCOUNTER 2023-01-10 11:18 | Outpatient (REF) | payer MEDICAID, SELFPAY ==
[2023-01-10 11:50] LABS: Venous Blood Gas Refer to POC result
[2023-01-10 11:58] LABS: Basophils Percent Auto 0.2 % (0-2); Eosinophils Percent Auto 0.1 % (0-4); Hematocrit 35.5 % (37.0-47.0); Hemoglobin 10.7 g/dl (12.0-16.0); Imm Gran Abs Auto 0.16 X10*3/uL (0.00-0.03); Imm Gran Pct Auto 1.1 % (0.0-0.4); Lymphocytes Absolute Auto 0.3 X10*3/uL (1.2-4.9); Lymphocytes Percent Auto 2.1 % (20-40); MANUAL DIFF FLAG SCAN; Mean Corpuscular HGB Conc 30.1 g/dl (31.0-35.0); Mean Corpuscular Hemoglobin 29.1 pg (27.0-33.0); Mean Corpuscular Volume 96.5 fL (80.0-98.0); Mean Platelet Volume 9.1 fL (9.4-12.3); Monocytes Absolute Auto 0.7 X10*3/uL (0.1-1.2); Monocytes Percent Auto 4.7 % (2-11); Neutrophils Percent Auto 91.8 % (45-73); Platelet Count 283 X10*3/uL (160-400); Red Blood Count 3.68 X10*6/uL (4.20-5.50); Red Cell Distribution Width 14.2 % (11.0-16.0); SCAN SMEAR FLAG 1; White Blood Count 15.2 X10*3/uL (4.8-10.8)
[2023-01-10 12:11] LABS: VBG Base Excess 14.4 mmol/L; VBG HCO3 42 mmol/L (22-26); VBG pCO2 71 mmHg; VBG pH 7.38 (7.32-7.43); VBG pO2 52 mmHg
[2023-01-10 12:18] LABS: SLIDE REVIEW VERIFIED
[2023-01-10 12:32] LABS: Anion Gap 14 (12-20); Blood Urea Nitrogen 17 mg/dL (9-16); Calcium 10.7 mg/dL (8.4-10.2); Carbon Dioxide 35 mmol/L (22-29); Chloride 96 mmol/L (96-108); Estimated Glomerular Filt Rate > 60; Glucose Random 158 mg/dL (60-115); Sodium 141 mmol/L (135-145)
[2023-01-10 12:37] LABS: Erythrocyte Sedimentation Rate 70 MM/HR (0-20)
[2023-01-10 13:05] LABS: ABG Refer to POC result
[2023-01-10 13:07] LABS: ABG pH 7.43 (7.35-7.45)
[2023-01-10 13:08] LABS: ABG Base Excess 16.9 mmol/L; ABG HCO3 44 mmol/L (22-26); ABG pO2 72 mmHg (83-108)
[2023-01-10 13:09] LABS: ABG pCO2 65 mmHg (32-45)
[2023-01-10 21:41] LABS: Theophylline < 0.8 MG/L ((10-20))
== END 2023-01-10 11:19 | disposition home or self-care (01) ==
LOC: HO.LAB 11:18
PROVIDERS: PCP Family Medicine; Visit Provider Hospitalist
DX: J44.1 Chronic obstructive pulmonary disease with (acute) exacerbation (principal)
CPT/HCPCS: 36415; 80048; 80198; 82803; 85025; 85652

== ENCOUNTER 2023-01-14 13:37 | Outpatient (AMB) | payer MEDICAID, SELFPAY ==
--- NOTE | 2023-01-14 13:52 | A.OFFVIS_ITS ---
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 She has been on high doses of prednisone currently on chronic steroids for ongoing respiratory issues. Recently she was placed on a prednisone taper. She is down to 30 mg at this time. She does respond well to noninvasive ventilator which she uses at nighttime and also as needed. Today she appears to be more dyspneic in appearance. It was apparent that her pulse ox was stable at 97% on her current oxygen however she was significantly tachycardic up to the 130s. I did offer her to get x-rays labs in an EKG today but, the patient opted on getting the tomorrow. I explained to her her symptoms worsen she is to go to the ER to be evaluated. We also talked about her respiratory failure where appears to be getting worse. The patient benefits from a wheelchair to help her with transportation and her appointments. She also may benefit from a sip and puff device as an accessory to noninvasive ventilator which she could potentially use it outside of the home for her progressive respiratory failure. She has been taking theophylline. Had planned to increase her theophylline. however, with the increased heart rate will hold off at this time. herABG from May 2019 demonstrated a pH 7.44 with a pCO2 of 69. Her bicarb also has been elevated at 41. Once we optimize her respiratory therapy with noninvasive ventilator will recheck her blood gas. In the meantime will check a theophylline level and also increase her theophylline level accordingly. Patient did develop worsening respiratory symptoms approximately 3-4 weeks ago. Therefore we will have her get checked for the SARS CoV 2 IgG antibodies. Unfortunately, the patient continues to smoke. We did talk about smoking cessation. Her is going to try to quit and once he quits he is not going to provide her with anymore cigarettes which should be very effective and helping her quit smoking. 04/05/2022 the patient is here for a pulm onary follow-up visit. The the patient continues to do well. She quit smoking altogether since January. She has been motivated after having a very serious admission to the hospital. She also has been able to cut down her prednisone down to 20 mg daily which is very reassuring. She continues use her noninvasive ventilator at nighttime with good effect. She also continues with the oxygen at 2 L continuously. During the office visit we did do a 6 minutes walk test. The patient on room air does desaturate down to 88% after several minutes off the oxygen. On 2 L she does improved about 97%. The patient does not ambulate too much but on 2 L she is able to maintain a pulse ox of 94% with activity. We only ambulated for about 50 ft because of significant back discomfort and leg discomfort. Will have her undergo blood work to assess her theophylline level and also her ..venous CO2 level. She does use a noninvasive ventilator but sometimes she feels a little restless prior to using it and she is wondering if she is starting to accumulate CO2. At this point based on her CO2 levels in the fact that she is tolerating her noninvasive ventilator will continue the current settings. 05/08/2022 the patient is here for a pulmonary follow-up visit. She complains of increasing dyspnea on exertion. Typically address she is on 2 L. Then with activity she does increase it to 3 or 4 L because she is very short of breath. She has been on 20 mg of prednisone. One days she did increase it because she was having shortness of breath. In addition to that she started developing pleuritic left-sided chest discomfort. She did go to the ER on the of this month. The had an x-ray done and also an EKG and cardiac enzymes. Everything looked good. The patient was discharged her medical regimen. She still continues to have that discomfort. She responded well to Lee 2 inhibitors in the past. She knows not to use Motrin or NSAIDs when she is using diclofenac. She also continues use the Trelegy at nighttime and also during the day. During the visit we did do a 6 minutes walk test. The patient actually did well on 2 L throughout the ambulation but she was very short of breath and dizzy needing to stop. It was mainly that heart rate was up in the 130s 140s. This could be a sign of cor pulmonale. The patient did have an echocardiogram demonstrating pulmonary hypertension. The patient is still struggles with her smoking. She is trying to cut down. The 05/27/2022 the patient is here for a pulmonary follow-up visit. Since we las t spoke she started developing worsening productive cough with green phlegm. It was thick and tenacious. Increasing frequency. She called the office because of that and chest tightness. She was on Levaquin for 14 days. She is feeling better although I will send another week to make sure that we completely treat any potential Pseudomonas or enteric infection. The patient continues to be CT IVIG. She is also stop smoking which is reassuring. Hopefully she will see the benefits of that soon. She does complaint of left-sided pleuritic discomfort. She had been on at Lee 2 inhibitor with good effect previously. In addition to that she has had multiple x-rays without any significant findings. Her last CT scan was back in September 2021 with pulmonary nodules rib fractures and airspace disease. Will go ahead and plan to repeat the CT scan before next visit. She continues use the noninvasive ventilator and also her oxygen. Otherwise patient is without any other complaints. 11/13/2022 the patient is here for a pulm onary follow-up visit. The patient is still having significant difficulties with breathing. Seems to be progressing. She does use her noninvasive ventilator at nighttime and also at times during the daytime. I did encourage her to use the noninvasive ventilator more during the daytime. I will request a sip and puff device from her [employer], [employer]. With the sip and puff device she will have a more easily assessable to use it. She also understands that the noninvasive ventilator has a battery life that is able to will able to work for 6-8 hours she can use it outside of the home. The patient has been on high dose of the prednisone. She is still struggling to breathe. She recently was told that her therapy for her liver. Hepatitis was success. Her last liver function studies are within normal limits. Therefore will try her on some Imuran will monitor closely her levels of her liver function studies. If she tolerates the medication we can increase it with hopes of providing her with a different steroid sparing agent. She did have a blood gas today. She does have the chronic hypercarbic respiratory failure but without any acuity so therefore she can continue to be treated at home. The patient also had lower extremity Dopplers negative for any DVT which is reassuring. 12/19/2022 the patient is here for andrea escudero follow-up visit. He is in the hospital. She has been complaining of a right lower extremity pain. She had another Doppler which was negative for DVT. Her legs indeed swollen and somewhat erythematous. She is also having pain in the bottom referred. Breathing flowers she is still having hard time breathing. She is trying to use her noninvasive ventilator during the daytime. Her blood gases overall have been reassuring although her CO2 continues to climb slowly. Her bicarb is also elevated. Therefore will try some Diamox to see we can decrease the bicarb in order to be able to be released at additional CO2. If she tolerates the use of Diamox for 3 days we can also consider adding in the small dose 3 times a week. Will readdress that with repeat blood work in a venous gas in 2 weeks and then will have her see follow-up in 3 weeks. She also ended up getting the sip and puff device although she has not been able to use it because the pressures are too high. Will have to further adjust the pressures according. Since she left the hospital she has been on 40 mg of prednisone. Just yesterday she dropped down to 30 mg because she should really be at a baseline of 20 mg. She will then taper down weeks time to 25 and then again to 20 mg. We will increase her azathioprine that she is taking in order to try to minimize her steroid use and she can increase that to 100 mg. She is taking folate and will add biotin because she will have further hair loss. Unfortunately, even with all these issues the patient continues to smoke cigarettes. She understands that all this medications will being vain if she continues to smoke cigarettes worsening overall health. 01/14/2023 the patient is here for allison nuno follow-up visit. She has been having hard time with the breathing. She is been getting worse. She called initially last week because of the worsening respiratory symptoms. She had blood work done demonstrating chronic hypercarbic respiratory failure and hypoxia with a normal pH which is reassuring. She continues use her noninvasive ventilator at nighttime and also during the daytime. She was started on a prednisone taper and also given a course of levofloxacin for her worsening cough and chest congestion. Was also noted that during the hospitalizations her microbiology was positive for Aspergillus. The patient has been on immunomodulator therapies and also cortical steroids therefore significantly immunocompromised. Therefore, it is reasonable to treat the Aspergillus as a potential pathogen. Will finish the course of Levaquin and then she can start the voriconazole. The patient will going to wean down the prednisone down to 20 mg and will continue taking the Imuran 100 mg. the theophylline levels were undetected although she was told to stop the theophylline when she was in a hospital. Therefore will hold off on theophylline specially with other adverse effects in all the potential medication interactions. We did talk about the severity of her disease. She has end-stage respiratory failure. The patient will need to continue to use the ventilator during the nighttime and also during the daytime. Explained to them that has a battery life about 8 hours and therefore she can not carry the ventilator with her with a fullface mask and she can use it. The mouthpiece, sip and puff, did not work well for her she could not get a good seal and tolerated. Therefore will just continue using the fullface mask for now. If her condition continues to worsen did talk about briefly about a tracheostomy but she understands that this comes with other pot ential adverse effects and potential complications. [facility] Medical History (Updated 01/04/23 @ 00:03 by Juarez Carrasco) Left leg swelling Constipation Asthma with exacerbation Hypercapnic respiratory failure Salmonella gastroenteritis Pleuritic chest pain CHITO (obstructive sleep apnea) Cor pulmonale Obesity with alveolar hypoventilation Aspiration into airway Congestive heart failure Bacteremia Acute and chronic respiratory failure with hypercapnia Morbid obesity Chronic constipation Cellulitis COPD mixed type Leukocytosis Pulmonary congestion Vomiting COPD exacerbation Acute respiratory failure Status asthmaticus with COPD (chronic obstructive pulmonary disease) Hypertensive cardiovascular disease Type 2 diabetes mellitus Morbid obesity Rib fractures Pulmonary nodule Abnormal chest x-ray Opioid dependence Limb swelling Abdominal pain Diabetes mellitus Chronic respiratory failure COPD (chronic obstructive pulmonary disease) Poor dentition Tobacco abuse Asthma-COPD overlap syndrome Hyperlipidemia, unspecified Essential hypertension Type 2 diabetes mellitus with unspecified complications Chronic respiratory failure Hypogammaglobulinemia Surgical History H/O tubal ligation Family History Father Diabetes Other Asthma Social History Household Members: Unknown / Unable to assess Household Members Other:: daughter Housing: Apartment Do you presently have visiting nurse or other home services: Yes Unable to assess alcohol history related to: Unable to respond Alcohol intake: never Patient Tobacco Use Status: Former Tobacco user Quit Date: February 2022 Tobacco use type: Cigarette Cigarettes Per Day: 1 Years Smoked: 35 e-Cigarette/Vaping Use: Currently Using Second Hand Smoke Exposure: No Substance Use Type: Opiates Advance Directives Date on File: 06/12/21 service: No Current occupational status: unemployed and disabled Review of Systems Const Denies night sweats ENT Denies change in voice, Denies lip swelling, Denies mouth pain, Reports nasal congestion, Reports nasal discharge and Denies tongue swelling Card Denies chest pain, Reports dyspnea and Reports dyspnea on exertion Resp Reports change in phlegm color, Reports chest congestion, Reports cough, Denies hemoptysis, Reports pain on inspiration, Reports pain with cough, Reports dyspnea, Reports dyspnea on exertion and Reports wheezing GI Reports abdominal pain Musc Denies no additional complaints Skin/Breast Denies pruritus and Denies lesions Neuro Denies Neuro-related abnormal movements Psych Denies no additional complaints Blade/Lymph Denies easy bleeding and Denies lymphadenopathy Aller/Immun Denies lip swelling, Denies tongue swelling and Reports wheezing Physical Exam Vital Signs: Last Vital Signs Pulse 92 01/14/23 13:54 Pulse Ox 98 01/14/23 13:54 Oxygen Delivery Method Room Air 01/14/23 13:54 BMI result Body Mass Index 35.9 Last Vital Signs Temp 98.3 F 08/04/21 12:00 Pulse 102 H 08/04/21 12:00 Resp 20 08/04/21 12:00 BP 140/73 H 08/04/21 12:00 Pulse Ox 94 08/04/21 12:00 Oxygen Flow Rate 35 08/03/21 20:00 BMI result Body Mass Index 36.9 Const General: alert and in distress mild HEENT Head: Yes other (cushinoid) Neck Neck: Yes normal visual inspection, Yes full ROM and Yes no lymphadenopathy Chest Chest palpation & inspection: normal inspection of the chest Resp Effort & Inspection: audible wheezes, tachypneic and prolonged expiratory phase Auscultation: wheezes and diminished lung sounds Cardio Rate: tachycardic Rhythm: regular rhythm Heart sounds: S1 normal heart sound present and S2 normal heart sound present GI Palpation (GI): Soft to palpation and nontender Auscultation: normal bowel sounds Skin General skin exam: rashes and/or lesions noted Extrem Right lower extremity: lower leg Details: erythema and warmth Office Meds methylprednisolone sod suc(PF) 125 mg/2 mL solution for injection Performing Provider: Allan Brito MD Performing Location: [facility] [place] [facility] Administered by: Tatiana Smith LPN on 01/14/23 14:22 Dose Route Admin Location Dispensed Lot Number Expiration Date [facility] Production [employer] 125 mg IM 2 mL [id number] 12/14/24 [id number] [employer] PHARM Assessment & Plan Assessment & Plan (1) Asthma-COPD overlap syndrome: Code(s): J44.9 - Chronic obstructive pulmonary disease, unspecified (2) Chronic respiratory failure: Code(s): J96.10 - Chronic respiratory failure, unspecified whether with hypoxia or hypercapnia Qualifiers: Respiratory failure complication: hypoxia and hypercapnia Qualified Code(s): J96.11 - Chronic respiratory failure with hypoxia; J96.12 - Chronic respiratory failure with hypercapnia (3) Hypercapnic respiratory failure: Code(s): J96.92 - Respiratory failure, unspecified with hypercapnia Qualifiers: Chronicity: chronic Qualified Code(s): J96.12 - Chronic respiratory failure with hypercapnia (4) Left leg swelling: Code(s): M79.89 - Other specified soft tissue disorders (5) Tobacco abuse: Code(s): Z72.0 - Tobacco use (6) Hypogammaglobulinemia: Code(s): D80.1 - Nonfamilial hypogammaglobulinemia Plan Tobacco cessation, has not been able to quit. She is progressively worsening. She does have the NIV. May benefit for additional daytime use. Mouth piece not helpful, will use FM Solumedrol IM 125mg x 1 today continue prednisone taper down to her baseline 20mg daily bactrim PCP prophylaxis Increased Imuran 100mg daily, monitor liver enzymes respiratory therapy, Nebs QID Needs to quit smoking continue IVIG every 4 weeks Daliresp continue Lasix daily continue Levaquin, monitor for tendonitis Voriconazole once she completes the abx F/U 4 weeks Orders: Orders ABG Today J96.21 - Acute and chronic respiratory failure with hypoxia, J96.22 - Acute and chronic respiratory failure with hypercapnia Complete Blood Count Auto Diff Today J96.21 - Acute and chronic respiratory failure with hypoxia, J96.22 - Acute and chronic respiratory failure with hypercapnia AMB Methylprednisolone Injection Today J44.1 - Chronic obstructive pulmonary disease with (acute) exacerbation, J96.21 - Acute and chronic respiratory failu re with hypoxia, J96.22 - Acute and chronic respiratory failure with hypercapnia Basic Metabolic Panel Today J96.21 - Acute and chronic respiratory failure with hypoxia, J96.22 - Acute and chronic respiratory failure with hypercapnia Medications: New voriconazole administer on empty stomach, at least 1 hour before or after meal(s) 200 mg PO Q12H 60 tabs 1RF 30 days Changed From azathioprine (Imuran) 50 mg PO DAILY To azathioprine (Imuran) 100 mg (2 x 50 mg) PO DAILY 60 tabs 6RF 30 days Quality Reporting (2019) Adult ([facility] ) Smoking risk assessment performed?: Yes Patient Tobacco Use Status: Former Tobacco user Coding Level of Care Code Est Pt Level 5 (41410) Diagnoses Asthma-COPD overlap syndrome J44.9 Chronic respiratory failure with hypoxia and hypercapnia J96.11; J96.12 Respiratory failure complication: hypoxia and hypercapnia Chronic respiratory failure with hypercapnia J96.12 Chronicity: chronic Left leg swelling M79.89 Tobacco abuse Z72.0 Hypogammaglobulinemia D80.1 Time Spent (min) 30
[2023-01-14 13:54] VITALS: PULSE 92; O2SAT 98; BMI 35.9
== END 2023-01-14 14:22 | disposition home or self-care (01) ==
PROVIDERS: Visit Provider Hospitalist
DX: J44.9 Chronic obstructive pulmonary disease, unspecified (principal); J96.11 Chronic respiratory failure with hypoxia; J96.12 Chronic respiratory failure with hypercapnia; M79.89 Other specified soft tissue disorders; Z87.891 Personal history of nicotine dependence; D80.1 Nonfamilial hypogammaglobulinemia
CPT/HCPCS: 99214

== ENCOUNTER → 2023-01-14 13:37 | Outpatient (BNVA) | payer MEDICAID, SELFPAY | PROVIDERS: Visit Provider Hospitalist | DX: J44.9 Chronic obstructive pulmonary disease, unspecified (principal); J96.11 Chronic respiratory failure with hypoxia; J96.12 Chronic respiratory failure with hypercapnia; M79.89 Other specified soft tissue disorders; D80.1 Nonfamilial hypogammaglobulinemia; Z72.0 Tobacco use | CPT/HCPCS: 96372; 99212; J2930 ==

== ENCOUNTER 2023-01-16 19:56 | Emergency (ER) | payer MEDICAID, SELFPAY ==
--- NOTE | ~2023-01-16 | XR_ITS ---
EXAMINATION: XR CHEST CLINICAL INFORMATION: Dyspnea. COMPARISON: Chest radiograph 12/21/2022. TECHNIQUE: AP view of the chest was obtained. FINDINGS: Redemonstration of multiple bilateral rib fractures with associated pleural thickening. Unchanged diffuse interstitial thickening. No discrete new focal airspace density. No pleural effusion or pneumothorax. Unchanged cardiomediastinal silhouette. No acute osseous findings. XR/XR chest 1V IMPRESSION: 1. No acute cardiopulmonary findings. 2. Unchanged nonspecific diffuse interstitial prominence. 3. Redemonstration of multiple bilateral rib fractures with associated pleural thickening.
[2023-01-16 20:00] VITALS: BP 141/95; PULSE 110; RESP 29; O2SAT 93; BMI 36.4
--- NOTE | 2023-01-16 20:05 | ECG_ITS ---
Test Reason : CHEST PAIN Blood Pressure : / mmHG Vent. Rate : 104 BPM Atrial Rate : 104 BPM P-R Int : 136 ms QRS Dur : 110 ms QT Int : 360 ms P-R-T Axes : 072 036 058 degrees QTc Int : 473 ms Sinus tachycardia Incomplete right bundle branch block Borderline ECG When compared with ECG of 20-DEC-2022 20:30, No significant change was found Referred By: Generic ED Physician Electronically Signed By:BLANCO STUBBS MD
[2023-01-16 20:19] LABS: MANUAL DIFF FLAG NO
[2023-01-16 20:20] LABS: Basophils Absolute Auto 0.1 X10*3/uL (0.0-0.2); Basophils Percent Auto 0.4 % (0-2); Hematocrit 40.5 % (37.0-47.0); Hemoglobin 12.3 g/dl (12.0-16.0); Imm Gran Abs Auto 0.43 X10*3/uL (0.00-0.03); Imm Gran Pct Auto 2.8 % (0.0-0.4); Lymphocytes Absolute Auto 0.9 X10*3/uL (1.2-4.9); Lymphocytes Percent Auto 5.6 % (20-40); Mean Corpuscular HGB Conc 30.4 g/dl (31.0-35.0); Mean Corpuscular Hemoglobin 29.1 pg (27.0-33.0); Mean Platelet Volume 8.6 fL (9.4-12.3); Monocytes Absolute Auto 0.8 X10*3/uL (0.1-1.2); Monocytes Percent Auto 5.2 % (2-11); Neutrophils Absolute Auto 13.1 x10*3/uL (2.0-8.3); Platelet Count 341 X10*3/uL (160-400); Red Blood Count 4.22 X10*6/uL (4.20-5.50); Red Cell Distribution Width 14.2 % (11.0-16.0); White Blood Count 15.2 X10*3/uL (4.8-10.8)
[2023-01-16 20:22] LABS: VBG Base Excess 25.5 mmol/L; VBG HCO3 52 mmol/L (22-26); VBG pCO2 57 mmHg; VBG pH 7.56 (7.32-7.43); VBG pO2 85 mmHg
[2023-01-16 20:26] LABS: Venous Blood Gas Refer to POC result
--- NOTE | 2023-01-16 20:27 | PC.RT ---
called to the ED room 19 for a known 52F found to have an increased WOB with diminished/expiratory wheezing bilat. Pt placed on Bipap 18/6 24% to maintain sats at 88-92 due to pt being a CO2 retainer with a hx of COPD. Pt also given a 7.5mg albuterol tx.
[2023-01-16 20:35] LABS: Alanine Aminotransferase 15 U/L (0-31); Albumin Level 4.1 g/dL (3.5-5.0); Alkaline Phosphatase 56 U/L (39-117); Anion Gap 14 (12-20); Aspartate Amino Transferase 14 U/L (5-31); Bilirubin Total 0.3 mg/dL (0.0-1.0); Blood Urea Nitrogen 23 mg/dL (9-16); Calcium 10.6 mg/dL (8.4-10.2); Carbon Dioxide 39 mmol/L (22-29); Chloride 94 mmol/L (96-108); Creatinine Clr Calc Pharmacy 85.8; Estimated Glomerular Filt Rate > 60; Glucose Random 260 mg/dL (60-115); Potassium 4.2 mmol/L (3.3-5.1); Sodium 143 mmol/L (135-145); Total Protein 7.2 g/dL (6.5-8.0)
[2023-01-16 20:43] LABS: Troponin-I High Sensitivity 8.6 ng/L (<3.5-17.0)
[2023-01-16 20:44] LABS: B Type Natriuretic Peptide 16 pg/mL (<100)
[2023-01-16] MEDS: Albuterol Sulfate 7.5 MG, Albuterol/Iprat 2.5/0.5MG 3 ML 3 ML INHALE (21:05)
[2023-01-16 21:06] VITALS: PULSE 104; RESP 26; O2SAT 94
--- NOTE | 2023-01-16 21:32 | ED_ITS ---
HPI - SOB/Dyspnea General Chief Complaint: Dyspnea Stated Complaint: SOB X2DAYS, HX COPD, CO2 ELEVATIONS PER EMS Time Seen by Provider: 01/16/23 20:58 Source: patient Mode of arrival: EMS History of Present Illness HPI Narrative: 52-year-old female well known to this emergency room with chronic lung disease presents with increasing shortness of breath for 2 days and wears 2.5 L of oxygen via nasal cannula at baseline. Patient states that she has had troubles with her CO2 levels and EMS reports that end-tidal was 60s to 70s. She otherwise denies recent cough, fevers, chills. Related Data Home Medications Medication Instructions Recorded Confirmed albuterol sulfate 90 mcg/actuation 2 puff inhalation Q4H PRN 12/30/19 12/21/22 aerosol inhaler (ProAir HFA) Shortness Of Breath Or Wheezing loratadine 10 mg tablet (Claritin) 10 mg PO DAILY 12/30/19 12/21/22 montelukast 10 mg tablet 10 mg PO BEDTIME 12/30/19 12/21/22 diltiazem HCl 360 mg capsule,24 360 mg PO DAILY 11/16/20 12/21/22 hr,extended release (Tiadylt ER) roflumilast 500 mcg tablet 500 mcg PO DAILY 11/16/20 12/21/22 (Daliresp) rosuvastatin 5 mg tablet 5 mg PO BEDTIME 11/16/20 12/21/22 metformin 500 mg tablet,extended 1,000 mg PO BID 05/18/21 12/21/22 release 24 hr methadone 10 mg/mL oral concentrate 50 mg PO DAILY 06/06/21 10/20/22 hydralazine 25 mg tablet 25 mg PO TIDWM 11/02/21 12/21/22 insulin lispro 100 unit/mL 4 unit subcut TIDAC 11/02/21 12/21/22 subcutaneous solution clonazepam 1 mg tablet 1 mg PO BID PRN Anxiety 06/28/22 12/21/22 ibuprofen 600 mg tablet 600 mg PO Q8H PRN Pain 06/28/22 12/21/22 alendronate 70 mg tablet 70 mg PO QWEEK 07/29/22 12/21/22 lamotrigine 150 mg tablet 150 mg PO BID 07/29/22 12/21/22 lidocaine 5 % topical patch 1 patch topical DAILY 07/29/22 12/21/22 calcitonin (salmon) 200 1 spray intranasal DAILY 09/30/22 12/21/22 unit/actuation nasal spray cholecalciferol (vitamin D3) 1,250 1,250 mcg PO SA@0900 09/30/22 12/21/22 mcg (50,000 unit) capsule insulin glargine 100 unit/mL 35 unit subcut BEDTIME 09/30/22 12/21/22 subcutaneous solution (Lantus U-100 Insulin) docusate sodium 100 mg capsule 100 mg PO BID PRN constipation 10/20/22 12/21/22 zolpidem 5 mg tablet 5 mg PO BEDTIME PRN Sleep 10/20/22 12/21/22 nebulizers 11/08/22 12/21/22 bupropion HCl 100 mg tablet 100 mg PO DAILY 12/21/22 12/21/22 diclofenac potassium 50 mg tablet 50 mg PO TID PRN Pain 12/21/22 12/21/22 polyethylene glycol 3350 17 17 g PO DAILY constipation 12/21/22 12/21/22 gram/dose oral powder (Miralax) salmeterol 50 mcg/dose blister 1 inh inhalation BID 12/21/22 12/21/22 powder for inhalation (Serevent Diskus) Previous Rx's Medication Instructions Recorded simethicone 80 mg chewable tablet 80 mg PO QIDWMHS PRN Abdominal 01/05/22 (Gas Relief (simethicone)) Distention #30 tabs theophylline 450 mg 450 mg PO Q12H 30 days #60 tabs 05/08/22 tablet,extended release,12 hr arformoterol 15 mcg/2 mL solution 2 ml inhalation Q12H 30 days #120 06/07/22 for nebulization (Brovana) mL tiotropium bromide 18 mcg capsule 1 cap inhalation DAILY #30 ea 07/09/22 with inhalation device (Spiriva with HandiHaler) budesonide 0.5 mg/2 mL suspension 0.5 mg (2 mL) inhalation BID #120 08/15/22 for nebulization mL ipratropium 0.5 mg-albuterol 3 mg 3 ml PO Q4H PRN for wheezing #540 09/02/22 (2.5 mg base)/3 mL nebulization mL soln sodium chloride 7 % for 4 ml inhalation BID #240 mL 09/20/22 nebulization omeprazole 40 mg capsule,delayed 40 mg PO DAILY@0630 30 days #30 09/24/22 release caps furosemide 20 mg tablet (Lasix) 20 mg PO DAILY 30 days #30 tabs 11/08/22 sulfamethoxazole 400 1 tab PO DAILY #30 tabs 11/13/22 mg-trimethoprim 80 mg tablet (Bactrim) folic acid 1 mg tablet 1 mg PO DAILY 30 days #30 tabs 12/19/22 lisinopril 10 mg tablet 10 mg PO DAILY 30 days #30 tabs 12/27/22 prednisone 10 mg tablet See Taper PO DIRECTED #30 tabs 12/27/22 prednisone 10 mg tablet 30 mg (3 x 10 mg) PO DAILY 30 days 12/30/22 #90 tabs levofloxacin 500 mg tablet 500 mg PO DAILY 14 days #14 tabs 01/10/23 prednisone 10 mg tablet See Rx Instructions PO DAILY 18 01/10/23 days #63 tabs azathioprine 50 mg tablet (Imuran) 100 mg (2 x 50 mg) PO DAILY 30 01/14/23 days #60 tabs gabapentin 300 mg capsule 300 mg PO BID #60 caps 01/14/23 voriconazole 200 mg tablet 200 mg PO Q12H 30 days #60 tabs 01/14/23 Allergies Allergy/AdvReac Type Severity Reaction Status Date / Time No Known Allergies Allergy Verified 01/16/23 20:05 [No Known Allergies*] Review of Systems 2 Review of Systems: Pertinent positives and negatives as stated in HPI [facility] Past Medical History Source: nursing notes reviewed Medical History Left leg swelling Constipation Asthma with exacerbation Hypercapnic respiratory failure Salmonella gastroenteritis Pleuritic chest pain CHITO (obstructive sleep apnea) Cor pulmonale Obesity with alveolar hypoventilation Aspiration into airway Congestive heart failure Bacteremia Acute and chronic respiratory failure with hypercapnia Morbid obesity Chronic constipation Cellulitis COPD mixed type Leukocytosis Pulmonary congestion Vomiting COPD exacerbation Acute respiratory failure Status asthmaticus with COPD (chronic obstructive pulmonary disease) Hypertensive cardiovascular disease Type 2 diabetes mellitus Morbid obesity Rib fractures Pulmonary nodule Abnormal chest x-ray Opioid dependence Limb swelling Abdominal pain Diabetes mellitus Chronic respiratory failure COPD (chronic obstructive pulmonary disease) Poor dentition Tobacco abuse Asthma-COPD overlap syndrome Hyperlipidemia, unspecified Essential hypertension Type 2 diabetes mellitus with unspecified complications Chronic respiratory failure Hypogammaglobulinemia Surgical History H/O tubal ligation Family History Family History Father Diabetes Other Asthma Social History Social History Household Members: Unknown / Unable to assess Household Members Other:: daughter Housing: Apartment Do you presently have visiting nurse or other home services: Yes Unable to assess alcohol history related to: Unknown Alcohol intake: never Patient Tobacco Use Status: Former Tobacco user Quit Date: February 2022 Tobacco use type: Cigarette Cigarettes Per Day: 1 Years Smoked: 35 Smoked in Last 30 Days: No e-Cigarette/Vaping Use: Currently Using Second Hand Smoke Exposure: No Use of substances other than those prescribed or required for medical reasons: No Substance Use Type: Opiates Advance Directives: Yes Advance Directives on File: Yes Advance Directives Date on File: 06/12/21 service: No Current occupational status: unemployed and disabled Physical Exam 2 Vital Signs: Vital Signs: Last Vital Signs Temp 98.5 F 01/16/23 23:28 Pulse 108 H 01/16/23 23:28 Resp 20 01/16/23 23:28 BP 175/84 H 01/16/23 23:28 Pulse Ox 93 01/16/23 20:00 O2 Del Method Nasal Cannula 01/16/23 20:00 Oxygen Flow Rate 2.5 01/16/23 20:00 BMI result Body Mass Index 36.4 VITAL SIGNS: Reviewed. GENERAL: Well developed, well nourished, in moderate distress. HEAD: Normocephalic/atraumatic EYES: PERRLA, EOMI EARS: Ext canals without abnormality NOSE: Nares patent bilateral OROPHARYNX: no oral lesions noted, posterior pharynx clear NECK: Supple, no adenopathy LUNGS: Diminished throughout with tachypnea, increased work of breathing SpO2<93> CARDIOVASCULAR: Regular rate and rhythm without noted murmurs, no JVD or lower extremity edema. ABDOMEN: Soft, non-tender, non-distended with bowel sounds. MUSCULOSKELETAL: No tenderness, deformities, or effusions noted on gross inspection. EXTREMITIES: No cyanosis, clubbing or edema. SKIN: Inspection of the skin reveals no rashes NEUROLOGIC: Alert and oriented x 4. Strength and sensation to light touch were grossly intact x 4. Medications Administered Discontinued Medications Generic Name Dose Route Start Last Admin Trade Name Jaylan PRN Reason Stop Dose Admin Albuterol Sulfate 2.5 mg 01/16/23 22:26 01/16/23 22:29 Albuterol Sulfate (0.083%) 2.5 Mg/3 Ml Vial.Neb INHALE 01/16/23 22:27 2.5 mg ONCE ONE Administration Albuterol Sulfate 7.5 mg/ 0 mg 01/16/23 21:02 01/16/23 21:05 Albuterol/Ipratropium 3 ml INHALE 01/16/23 21:03 1 each ONCE ONE Administration Methylprednisolone Sodium Succinate 100 mg 01/16/23 21:21 01/16/23 21:41 Methylprednisolone Sod Succ 125 Mg/2 Ml Vial IVPUSH 01/16/23 21:22 100 mg ONCE ONE Administration Medical Decision Making Medical Decision Making [facility] Narrative: 2057: 52-year-old female with history and clinical presentation consistent with acute on chronic as radiation of underlying COPD. Patient immediately received 7.5 mg DuoNeb treatment in line via BiPAP (she all required supplemental BiPAP for 5 minutes), 100 mg of Solu-Medrol as she already took 30 mg of prednisone this morning, she also received an additional 2.5 mg of albuterol. Review of investigations demonstrates chronic leukocytosis likely secondary for frequent recurrence steroid use as there is no evidence of anemia or thrombocytopenia. VBG does not demonstrate any respiratory acidosis and mild hypercapnia of 57. Chemistry indices are negative for VERONIKA and there is no electrolyte or liver enzyme abnormalities, high sensitivity troponin although detectable is not elevated and BNP is within normal limits. Glucose is increased, once again, likely secondary to steroid use. Chest x-ray negative for infiltrate and otherwise my interpretation is in agreement with radiology's impression. EKG demonstrates sinus tachycardia in right bundle branch block at baseline otherwise no evidence of STEMI. On re-evaluation patient is feeling much better and is currently demonstrating easy breathing on her home nasal cannula oxygen. Patient wishes to go home and I feel that she is clinically stable to do so. Differential Diagnosis Differential Diagnoses: The differential diagnosis associated with the presentation includes Please see the discussion above Admission/Observation Consideration of admission/observation: Escalation of care including admission/observation considered Please see the discussion above Lab Data MDM Lab Attestation statement: I reviewed the patient's lab results. Please see the discussion above 01/16/23 20:14 01/16/23 20:14 Labs: Lab Results 01/16/23 01/16/23 Range/Units 20:14 20:17 WBC 15.2 H (4.8-10.8) X10*3/uL RBC 4.22 (4.20-5.50) X10*6/uL Hgb 12.3 (12.0-16.0) g/dl Hct 40.5 (37.0-47.0) % MCV 96.0 (80.0-98.0) fL MCH 29.1 (27.0-33.0) pg MCHC 30.4 L (31.0-35.0) g/dl RDW 14.2 (11.0-16.0) % Plt Count 341 (160-400) X10*3/uL MPV 8.6 L (9.4-12.3) fL Immature Gran % (Auto) 2.8 H (0.0-0.4) % Neut % (Auto) 86.0 H (45-73) % Lymph % (Auto) 5.6 L (20-40) % [place] % (Auto) 5.2 (2-11) % Eos % (Auto) 0.0 (0-4) % Baso % (Auto) 0.4 (0-2) % Lymph # (Auto) 0.9 L (1.2-4.9) X10*3/uL [place] # (Auto) 0.8 (0.1-1.2) X10*3/uL Eos # (Auto) 0.0 (0.0-0.4) X10*3/uL Baso # (Auto) 0.1 (0.0-0.2) X10*3/uL Abs Immat Gran (auto) 0.43 H (0.00-0.03) X10*3/uL Absolute Neuts (auto) 13.1 H (2.0-8.3) x10*3/uL Absolute Nucleated RBC 0.000 (0.0-0.012) X10*3/uL Nucleated RBC % (auto) 0.0 (0.0-0.2) /100WBC VBG pH 7.56 H (7.32-7.43) VBG pCO2 57 mmHg VBG pO2 85 mmHg VBG HCO3 52 H (22-26) mmol/L VBG O2 Saturation 98.0 % VBG Base Excess 25.5 mmol/L Sodium 143 (135-145) mmol/L Potassium 4.2 (3.3-5.1) mmol/L Chloride 94 L (96-108) mmol/L Carbon Dioxide 39 H (22-29) mmol/L Anion Gap 14 (12-20) BUN 23 H (9-16) mg/dL Creatinine 0.77 (0.5-1.4) mg/dL Estim Creat Clear Calc 85.8 Estimated GFR > 60 Random Glucose 260 H (60-115) mg/dL Calcium 10.6 H (8.4-10.2) mg/dL Total Bilirubin 0.3 (0.0-1.0) mg/dL AST 14 (5-31) U/L ALT 15 (0-31) U/L Alkaline Phosphatase 56 (39-117) U/L Troponin I High Sens 8.6 (<3.5-17.0) ng/L B-Natriuretic Peptide 16 (<100) pg/mL Total Protein 7.2 (6.5-8.0) g/dL Albumin 4.1 (3.5-5.0) g/dL Independent Interpretation I performed an independent interpretation of an: EKG Interpretation: Sinus tachycardia, HR-104, no STEMI, incomplete right bundle-branch block at baseline, NM/QTC is within normal limits. Radiology Impression Discussion of test interpretation with radiology: I have reviewed the radiologist's reading. Radiologist Impression: Please see the discussion above External Record Review External record reviewed: Outpatient record, Prior outpatient labs and Prior outpatient radiology Chronic Conditions Patient?s care impacted by: Diabetes and Other COPD Critical Care Time Critical Care Time Critical Care Time: Yes Total Critical Care Time: 30 Attestation: I personally attest to this time spent taking care of the patient. Discharge Plan Discharge Clinical Impression: COPD exacerbation Patient Disposition: Home, Self-Care Instructions: COPD (Chronic Obstructive Pulmonary Disease) (ED) Additional Instructions: 1. Resume all home medications as prescribed. 2. Follow-up with primary care provider Friday. Return to the ER for any worsening symptoms. Prescriptions: No Action Brovana 15 mcg/2 mL solution for nebulization 2 ml inhalation Q12H 30 Days Qty: 120 11RF Spiriva with HandiHaler 18 mcg capsule, w/inhalation device 1 cap inhalation DAILY Qty: 30 11RF budesonide 0.5 mg/2 mL suspension for nebulization 0.5 mg inhalation BID Qty: 120 11RF ipratropium-albuterol 0.5 mg-3 mg(2.5 mg base)/3 mL solution for nebulization 3 ml PO Q4H PRN (Reason: for wheezing) Qty: 540 6RF sodium chloride 7 % solution for nebulization 4 ml inhalation BID Qty: 240 11RF omeprazole 40 mg capsule,delayed release(DR/EC) 40 mg PO DAILY@0630 30 Days Qty: 30 6RF prednisone 10 mg tablet 30 mg PO DAILY 30 Days Qty: 90 3RF levofloxacin 500 mg tablet 500 mg PO DAILY 14 Days Qty: 14 0RF prednisone 10 mg tablet See Rx Instructions PO DAILY 18 Days Qty: 63 0RF Rx Instructions: PO daily; Take 6 tabs daily x 3 days, then 5 tabs x 3 days, then 4 tabs x 3 days, then 3 tabs x 3 days, then 2 tabs daily x 3 days, then 1 tab x 3 days to complete. gabapentin 300 mg capsule 300 mg PO BID Qty: 60 11RF diltiazem HCl [Tiadylt ER] 360 mg capsule,extended release 24 hr 360 mg PO DAILY rosuvastatin 5 mg tablet 5 mg PO BEDTIME roflumilast [Daliresp] 500 mcg tablet 500 mcg PO DAILY metformin 500 mg tablet extended release 24 hr 1,000 mg PO BID hydralazine 25 mg tablet 25 mg PO TIDWM insulin lispro 100 unit/mL solution 4 unit subcut TIDAC methadone 10 mg/mL Concentrate 50 mg PO DAILY Patient Comments: [facility] simethicone [Gas Relief (simethicone)] 80 mg Tablet,Chewable 80 mg PO QIDWMHS PRN (Reason: Abdominal Distention) Qty: 30 0RF lamotrigine 150 mg tablet 150 mg PO BID alendronate 70 mg tablet 70 mg PO QWEEK lidocaine 5 % adhesive patch,medicated 1 patch topical DAILY Rx Instructions: APPLY FOR 12 HOURS THEN REMOVE FOR 12 HOURS cholecalciferol (vitamin D3) 1,250 mcg (50,000 unit) capsule 1,250 mcg PO SA@0900 calcitonin (salmon) 200 unit/actuation spray,non-aerosol 1 spray intranasal DAILY Rx Instructions: one nostril every day, alternate sides. insulin glargine [Lantus U-100 Insulin] 100 unit/mL solution 35 unit subcut BEDTIME docusate sodium 100 mg capsule 100 mg PO BID PRN (Reason: constipation) zolpidem 5 mg tablet 5 mg PO BEDTIME PRN (Reason: Sleep) clonazepam 1 mg tablet 1 mg PO BID PRN (Reason: Anxiety) ibuprofen 600 mg tablet 600 mg PO Q8H PRN (Reason: Pain) bupropion HCl 100 mg tablet 100 mg PO DAILY Serevent Diskus 50 mcg/dose blister with device 1 inh INHALATION BID polyethylene glycol 3350 [Miralax] 17 gram/dose powder 17 g PO DAILY diclofenac potassium 50 mg Tablet 50 mg PO TID PRN (Reason: Pain) lisinopril 10 mg Tablet 10 mg PO DAILY 30 Days Qty: 30 0RF Protocol: Hold for SBP< HOLD for SBP < : 90 prednisone 10 mg tablet See Taper PO DIRECTED Qty: 30 0RF Taper: Prednisone 30 mg daily for 5 Days and 0 Hour 20 mg daily for 5 Days and 0 Hour 10 mg daily for 5 Days and 0 Hour Rx Instructions: see taper instructions montelukast 10 mg tablet 10 mg PO BEDTIME albuterol sulfate [ProAir HFA] 90 mcg/actuation HFA aerosol inhaler 2 puff inhalation Q4H PRN (Reason: Shortness Of Breath Or Wheezing) loratadine [Claritin] 10 mg tablet 10 mg PO DAILY theophylline 450 mg tablet extended release 12 hr 450 mg PO Q12H 30 Days Qty: 60 6RF Hold Instructions: hold until follow up with pulmonology sulfamethoxazole-trimethoprim [Bactrim] 400-80 mg tablet 1 tab PO DAILY Qty: 30 4RF ([facility] [place] nebulizers [facility] [place] See Rx Instructions .ROUTE Rx Instructions: As directed furosemide [Lasix] 20 mg tablet 20 mg PO DAILY 30 Days Qty: 30 2RF voriconazole 200 mg tablet 200 mg PO Q12H 30 Days Qty: 60 1RF Rx Instructions: administer on empty stomach, at least 1 hour before or after meal(s) azathioprine [Imuran] 50 mg tablet 100 mg PO DAILY 30 Days Qty: 60 6RF folic acid 1 mg tablet 1 mg PO DAILY 30 Days Qty: 30 6RF Referrals: Kelli Benavides MD [Primary Care Provider] -
--- NOTE | 2023-01-16 21:34 | MHC.EDTECH ---
Patient refused Walter
[2023-01-16] MEDS: methylPREDNISolone Sod Succ 125 MG/2 ML VIAL 100 MG IVPUSH (21:41)
[2023-01-16 22:29] VITALS: PULSE 95; RESP 18; O2SAT 92
[2023-01-16] MEDS: Albuterol Sulfate (0.083%) 2.5 MG/3 ML VIAL.NEB INHALE (22:29)
[2023-01-16 23:28] VITALS: BP 175/84; PULSE 108; RESP 20; TEMP 36.9
[2023-01-17 00:30] VITALS: O2SAT 96
--- NOTE | 2023-01-17 00:30 | PC.NURSE ---
pt waiting for ambulance transport back home
--- NOTE | 2023-01-17 00:50 | MHC.EDTECH ---
call out to [facility] at 0023 to book transport for pt back home, estimated eta given was within the hour
== END 2023-01-17 01:00 | disposition home or self-care (01) ==
PROVIDERS: Emergency Provider Student in an Organized Health Care Education/Training Program; PCP Family Medicine
DX: J44.1 Chronic obstructive pulmonary disease with (acute) exacerbation (principal); R06.02 Shortness of breath; R06.00 Dyspnea, unspecified; R00.0 Tachycardia, unspecified; Z87.891 Personal history of nicotine dependence; Z79.899 Other long term (current) drug therapy; Z99.81 Dependence on supplemental oxygen
CPT/HCPCS: 36415; 71045; 80053; 82803; 83880; 84484; 85025; 93005; 94640; 96374; 99284; 99285; J2930

== ENCOUNTER 2023-01-20 17:13 | Emergency (ER) | payer MEDICAID, SELFPAY ==
[2023-01-20] VITALS (7 sets, daily range): BP systolic 142–163; BP diastolic 74–88; PULSE 96–110; RESP 15–24; TEMP 36.9; O2SAT 92–98; BMI 38.5
[2023-01-20 17:41] LABS: MANUAL DIFF FLAG NO
[2023-01-20] MEDS: Albuterol Sulfate 2.5 MG, Albuterol/Iprat 2.5/0.5MG 3 ML 3 ML INHALE (17:45)
--- NOTE | 2023-01-20 17:47 | PC.NURSE ---
patient on bipap, respirations wnl at this time. resting quietly in room, labs obtained
[2023-01-20 17:50] LABS: Basophils Absolute Auto 0.1 X10*3/uL (0.0-0.2); Basophils Percent Auto 0.2 % (0-2); Hemoglobin 11.9 g/dl (12.0-16.0); Imm Gran Abs Auto 0.23 X10*3/uL (0.00-0.03); Imm Gran Pct Auto 1.1 % (0.0-0.4); Lymphocytes Absolute Auto 1.3 X10*3/uL (1.2-4.9); Lymphocytes Percent Auto 6.1 % (20-40); Mean Corpuscular HGB Conc 29.8 g/dl (31.0-35.0); Mean Corpuscular Hemoglobin 28.6 pg (27.0-33.0); Mean Corpuscular Volume 96.2 fL (80.0-98.0); Mean Platelet Volume 8.7 fL (9.4-12.3); Monocytes Absolute Auto 0.7 X10*3/uL (0.1-1.2); Monocytes Percent Auto 3.4 % (2-11); Neutrophils Absolute Auto 18.6 x10*3/uL (2.0-8.3); Neutrophils Percent Auto 89.2 % (45-73); Platelet Count 289 X10*3/uL (160-400); Red Blood Count 4.16 X10*6/uL (4.20-5.50); Red Cell Distribution Width 14.4 % (11.0-16.0); White Blood Count 20.9 X10*3/uL (4.8-10.8)
[2023-01-20 17:52] LABS: VBG Base Excess 21.4 mmol/L; VBG HCO3 50 mmol/L (22-26); VBG pCO2 73 mmHg; VBG pH 7.44 (7.32-7.43); VBG pO2 69 mmHg
[2023-01-20 17:52] LABS: Venous Blood Gas Refer to POC result
--- NOTE | 2023-01-20 17:53 | ED_ITS ---
HPI - SOB/Dyspnea General Chief Complaint: Dyspnea Stated Complaint: asthma/copd Time Seen by Provider: 01/20/23 17:27 Source: patient Mode of arrival: EMS History of Present Illness HPI Narrative: 53-year-old female brought in by EMS from home for increasing difficulty breathing. Related Data Home Medications Medication Instructions Recorded Confirmed albuterol sulfate 90 mcg/actuation 2 puff inhalation Q4H PRN 12/30/19 12/21/22 aerosol inhaler (ProAir HFA) Shortness Of Breath Or Wheezing loratadine 10 mg tablet (Claritin) 10 mg PO DAILY 12/30/19 12/21/22 montelukast 10 mg tablet 10 mg PO BEDTIME 12/30/19 12/21/22 diltiazem HCl 360 mg capsule,24 360 mg PO DAILY 11/16/20 12/21/22 hr,extended release (Tiadylt ER) roflumilast 500 mcg tablet 500 mcg PO DAILY 11/16/20 12/21/22 (Daliresp) rosuvastatin 5 mg tablet 5 mg PO BEDTIME 11/16/20 12/21/22 metformin 500 mg tablet,extended 1,000 mg PO BID 05/18/21 12/21/22 release 24 hr methadone 10 mg/mL oral concentrate 50 mg PO DAILY 06/06/21 10/20/22 hydralazine 25 mg tablet 25 mg PO TIDWM 11/02/21 12/21/22 insulin lispro 100 unit/mL 4 unit subcut TIDAC 11/02/21 12/21/22 subcutaneous solution clonazepam 1 mg tablet 1 mg PO BID PRN Anxiety 06/28/22 12/21/22 ibuprofen 600 mg tablet 600 mg PO Q8H PRN Pain 06/28/22 12/21/22 alendronate 70 mg tablet 70 mg PO QWEEK 07/29/22 12/21/22 lamotrigine 150 mg tablet 150 mg PO BID 07/29/22 12/21/22 lidocaine 5 % topical patch 1 patch topical DAILY 07/29/22 12/21/22 calcitonin (salmon) 200 1 spray intranasal DAILY 09/30/22 12/21/22 unit/actuation nasal spray cholecalciferol (vitamin D3) 1,250 1,250 mcg PO SA@0900 09/30/22 12/21/22 mcg (50,000 unit) capsule insulin glargine 100 unit/mL 35 unit subcut BEDTIME 09/30/22 12/21/22 subcutaneous solution (Lantus U-100 Insulin) docusate sodium 100 mg capsule 100 mg PO BID PRN constipation 10/20/22 12/21/22 zolpidem 5 mg tablet 5 mg PO BEDTIME PRN Sleep 10/20/22 12/21/22 nebulizers 11/08/22 12/21/22 bupropion HCl 100 mg tablet 100 mg PO DAILY 12/21/22 12/21/22 diclofenac potassium 50 mg tablet 50 mg PO TID PRN Pain 12/21/22 12/21/22 polyethylene glycol 3350 17 17 g PO DAILY constipation 12/21/22 12/21/22 gram/dose oral powder (Miralax) salmeterol 50 mcg/dose blister 1 inh inhalation BID 12/21/22 12/21/22 powder for inhalation (Serevent Diskus) Previous Rx's Medication Instructions Recorded simethicone 80 mg chewable tablet 80 mg PO QIDWMHS PRN Abdominal 01/05/22 (Gas Relief (simethicone)) Distention #30 tabs theophylline 450 mg 450 mg PO Q12H 30 days #60 tabs 05/08/22 tablet,extended release,12 hr arformoterol 15 mcg/2 mL solution 2 ml inhalation Q12H 30 days #120 06/07/22 for nebulization (Brovana) mL tiotropium bromide 18 mcg capsule 1 cap inhalation DAILY #30 ea 07/09/22 with inhalation device (Spiriva with HandiHaler) budesonide 0.5 mg/2 mL suspension 0.5 mg (2 mL) inhalation BID #120 08/15/22 for nebulization mL ipratropium 0.5 mg-albuterol 3 mg 3 ml PO Q4H PRN for wheezing #540 09/02/22 (2.5 mg base)/3 mL nebulization mL soln sodium chloride 7 % for 4 ml inhalation BID #240 mL 09/20/22 nebulization omeprazole 40 mg capsule,delayed 40 mg PO DAILY@0630 30 days #30 09/24/22 release caps furosemide 20 mg tablet (Lasix) 20 mg PO DAILY 30 days #30 tabs 11/08/22 sulfamethoxazole 400 1 tab PO DAILY #30 tabs 11/13/22 mg-trimethoprim 80 mg tablet (Bactrim) folic acid 1 mg tablet 1 mg PO DAILY 30 days #30 tabs 12/19/22 lisinopril 10 mg tablet 10 mg PO DAILY 30 days #30 tabs 12/27/22 prednisone 10 mg tablet See Taper PO DIRECTED #30 tabs 12/27/22 prednisone 10 mg tablet 30 mg (3 x 10 mg) PO DAILY 30 days 12/30/22 #90 tabs levofloxacin 500 mg tablet 500 mg PO DAILY 14 days #14 tabs 01/10/23 prednisone 10 mg tablet See Rx Instructions PO DAILY 18 01/10/23 days #63 tabs azathioprine 50 mg tablet (Imuran) 100 mg (2 x 50 mg) PO DAILY 30 01/14/23 days #60 tabs gabapentin 300 mg capsule 300 mg PO BID #60 caps 01/14/23 voriconazole 200 mg tablet 200 mg PO Q12H 30 days #60 tabs 01/14/23 Allergies Allergy/AdvReac Type Severity Reaction Status Date / Time No Known Allergies Allergy Verified 01/16/23 20:05 [No Known Allergies*] Review of Systems 2 Review of Systems: Pertinent positives and negatives as stated in the HPI [facility] Past Medical History Source: nursing notes reviewed Medical History Left leg swelling Constipation Asthma with exacerbation Hypercapnic respiratory failure Salmonella gastroenteritis Pleuritic chest pain CHITO (obstructive sleep apnea) Cor pulmonale Obesity with alveolar hypoventilation Aspiration into airway Congestive heart failure Bacteremia Acute and chronic respiratory failure with hypercapnia Morbid obesity Chronic constipation Cellulitis COPD mixed type Leukocytosis Pulmonary congestion Vomiting COPD exacerbation Acute respiratory failure Status asthmaticus with COPD (chronic obstructive pulmonary disease) Hypertensive cardiovascular disease Type 2 diabetes mellitus Morbid obesity Rib fractures Pulmonary nodule Abnormal chest x-ray Opioid dependence Limb swelling Abdominal pain Diabetes mellitus Chronic respiratory failure COPD (chronic obstructive pulmonary disease) Poor dentition Tobacco abuse Asthma-COPD overlap syndrome Hyperlipidemia, unspecified Essential hypertension Type 2 diabetes mellitus with unspecified complications Chronic respiratory failure Hypogammaglobulinemia Surgical History H/O tubal ligation Family History Family History Father Diabetes Other Asthma Social History Social History Household Members: Unknown / Unable to assess Household Members Other:: daughter Housing: Apartment Do you presently have visiting nurse or other home services: Yes Unable to assess alcohol history related to: Unknown Alcohol intake: never Patient Tobacco Use Status: Former Tobacco user Quit Date: February 2022 Tobacco use type: Cigarette Cigarettes Per Day: 1 Years Smoked: 35 e-Cigarette/Vaping Use: Currently Using Second Hand Smoke Exposure: No Substance Use Type: Opiates Advance Directives: Yes Advance Directives on File: Yes Advance Directives Date on File: 06/12/21 service: No Current occupational status: unemployed and disabled Physical Exam 2 Vital Signs: Vital Signs: Last Vital Signs Temp 98.5 F 01/20/23 17:20 Pulse 99 01/20/23 22:10 Resp 15 01/20/23 22:10 BP 163/88 H 01/20/23 22:10 Pulse Ox 97 01/20/23 22:10 O2 Del Method BiPAP 01/20/23 22:10 Oxygen Flow Rate 3 01/20/23 17:20 BMI result Body Mass Index 38.5 VITAL SIGNS: Reviewed. GENERAL: Elevated BMI, Well developed, well nourished, in no acute distress. HEAD: Normocephalic/atraumatic EYES: PERRLA, EOMI EARS: Ext canals without abnormality NOSE: Nares patent bilateral OROPHARYNX: no oral lesions noted, posterior pharynx clear NECK: Supple, no adenopathy LUNGS: Diminished bilaterally SpO2<93> on BiPAP with FiO2 of 25% CARDIOVASCULAR: Tachycardic rate and rhythm without noted murmurs, no JVD ABDOMEN: Soft, non-tender, non-distended with bowel sounds. MUSCULOSKELETAL: No tenderness, deformities, or effusions noted on gross inspection. EXTREMITIES: No cyanosis, clubbing or edema. RLE: 2 to 3+ pitting edema with mild erythema SKIN: Inspection of the skin reveals no rashes NEUROLOGIC: Alert and oriented x 4. Strength and sensation to light touch were grossly intact x 4. Medications Administered Discontinued Medications Generic Name Dose Route Start Last Admin Trade Name Freq PRN Reason Stop Dose Admin Albuterol/Ipratropium 3 ml 01/20/23 21:02 01/20/23 21:04 Albuterol/Iprat 2.5/0.5mg 3 Ml Ampul.Neb INHALE 01/20/23 21:03 3 ml ONCE ONE Administration Albuterol Sulfate 2.5 mg/ 0 mg 01/20/23 17:38 01/20/23 17:45 Albuterol/Ipratropium 3 ml INHALE 01/20/23 17:39 2.5 dose ONCE ONE Administration Medical Decision Making Medical Decision Making [facility] Narrative: 1727: 53-year-old female with acute on chronic exacerbation of underlying lung disease. First and foremost is important to point out that patient's leukocytosis is secondary to medications that she has recently been started on, namely steroids. I reviewed all investigations and Hematology indices with chronically present leukocytosis and left shift, there is a mild normocytic anemia without overt evidence of active bleeding, no thrombocytopenia. VBG does demonstrate hypercapnia without evidence to suggest respiratory acidosis so feel that this is compensated. Chemistry indices demonstrate mild elevation of sodium also evidence of alkalosis consistent with compensation for respiratory disease. There is no VERONIKA and liver enzymes are grossly within normal limits. Patient was placed on home level of BiPAP this is not a rescue BiPAP and review of most recent office note by learning engineer, Dr. Brito, states having a conversation with the patient regarding tracheostomy. Recommendation is currently for constant supplemented positive pressure at night and during the day. Patient is starting to improve and will pursue repeat VBG. SIgned out to Dr Harry - f/u VBG then d/c if appropriate Differential Diagnosis Differential Diagnoses: The differential diagnosis associated with the presentation includes Please see the discussion above Admission/Observation Consideration of admission/observation: Escalation of care including admission/observation considered Please see the discussion above Lab Data [facility] Lab Attestation statement: I reviewed the patient's lab results. Please see the discussion above 01/20/23 17:37 01/20/23 17:37 Labs: Lab Results 01/20/23 01/20/23 01/20/23 Range/Units 17:37 17:42 20:28 WBC 20.9 H (4.8-10.8) X10*3/uL RBC 4.16 L (4.20-5.50) X10*6/uL Hgb 11.9 L (12.0-16.0) g/dl Hct 40.0 (37.0-47.0) % MCV 96.2 (80.0-98.0) fL MCH 28.6 (27.0-33.0) pg MCHC 29.8 L (31.0-35.0) g/dl RDW 14.4 (11.0-16.0) % Plt Count 289 (160-400) X10*3/uL MPV 8.7 L (9.4-12.3) fL Immature Gran % (Auto) 1.1 H (0.0-0.4) % Neut % (Auto) 89.2 H (45-73) % Lymph % (Auto) 6.1 L (20-40) % [place] % (Auto) 3.4 (2-11) % Eos % (Auto) 0.0 (0-4) % Baso % (Auto) 0.2 (0-2) % Lymph # (Auto) 1.3 (1.2-4.9) X10*3/uL [place] # (Auto) 0.7 (0.1-1.2) X10*3/uL Eos # (Auto) 0.0 (0.0-0.4) X10*3/uL Baso # (Auto) 0.1 (0.0-0.2) X10*3/uL Abs Immat Gran (auto) 0.23 H (0.00-0.03) X10*3/uL Absolute Neuts (auto) 18.6 H (2.0-8.3) x10*3/uL Absolute Nucleated RBC 0.000 (0.0-0.012) X10*3/uL Nucleated RBC % (auto) 0.0 (0.0-0.2) /100WBC D-Dimer High Sensitivty 156 NG/ML VBG pH 7.44 H (7.32-7.43) VBG pCO2 73 mmHg VBG pO2 69 mmHg VBG HCO3 50 H (22-26) mmol/L VBG O2 Saturation 92.0 % VBG Base Excess 21.4 mmol/L Sodium 146 H (135-145) mmol/L Potassium 4.2 (3.3-5.1) mmol/L Chloride 93 L (96-108) mmol/L Carbon Dioxide 44 H* (22-29) mmol/L Anion Gap 13 (12-20) BUN 23 H (9-16) mg/dL Creatinine 0.65 (0.5-1.4) mg/dL Estim Creat Clear Calc 99.7 Estimated GFR > 60 Random Glucose 108 (60-115) mg/dL Calcium 10.3 H (8.4-10.2) mg/dL Total Bilirubin 0.2 (0.0-1.0) mg/dL AST 17 (5-31) U/L ALT 16 (0-31) U/L Alkaline Phosphatase 51 (39-117) U/L Total Protein 6.9 (6.5-8.0) g/dL Albumin 4.0 (3.5-5.0) g/dL External Record Review External record reviewed: Outpatient record, Prior outpatient labs and Prior outpatient radiology Chronic Conditions Patient?s care impacted by: Other COPD Critical Care Time Critical Care Time Critical Care Time: Yes Total Critical Care Time: 45 Attestation: I personally attest to this time spent taking care of the patient. Discharge Plan Discharge Clinical Impression: Acute on chronic respiratory failure with hypoxia and hypercapnia Patient Disposition: Still a Patient Prescriptions: No Action Brovana 15 mcg/2 mL solution for nebulization 2 ml inhalation Q12H 30 Days Qty: 120 11RF Spiriva with HandiHaler 18 mcg capsule, w/inhalation device 1 cap inhalation DAILY Qty: 30 11RF budesonide 0.5 mg/2 mL suspension for nebulization 0.5 mg inhalation BID Qty: 120 11RF ipratropium-albuterol 0.5 mg-3 mg(2.5 mg base)/3 mL solution for nebulization 3 ml PO Q4H PRN (Reason: for wheezing) Qty: 540 6RF sodium chloride 7 % solution for nebulization 4 ml inhalation BID Qty: 240 11RF omeprazole 40 mg capsule,delayed release(DR/EC) 40 mg PO DAILY@0630 30 Days Qty: 30 6RF prednisone 10 mg tablet 30 mg PO DAILY 30 Days Qty: 90 3RF levofloxacin 500 mg tablet 500 mg PO DAILY 14 Days Qty: 14 0RF prednisone 10 mg tablet See Rx Instructions PO DAILY 18 Days Qty: 63 0RF Rx Instructions: PO daily; Take 6 tabs daily x 3 days, then 5 tabs x 3 days, then 4 tabs x 3 days, then 3 tabs x 3 days, then 2 tabs daily x 3 days, then 1 tab x 3 days to complete. gabapentin 300 mg capsule 300 mg PO BID Qty: 60 11RF diltiazem HCl [Tiadylt ER] 360 mg capsule,extended release 24 hr 360 mg PO DAILY rosuvastatin 5 mg tablet 5 mg PO BEDTIME roflumilast [Daliresp] 500 mcg tablet 500 mcg PO DAILY metformin 500 mg tablet extended release 24 hr 1,000 mg PO BID hydralazine 25 mg tablet 25 mg PO TIDWM insulin lispro 100 unit/mL solution 4 unit subcut TIDAC methadone 10 mg/mL Concentrate 50 mg PO DAILY Patient Comments: [facility] simethicone [Gas Relief (simethicone)] 80 mg Tablet,Chewable 80 mg PO QIDWMHS PRN (Reason: Abdominal Distention) Qty: 30 0RF lamotrigine 150 mg tablet 150 mg PO BID alendronate 70 mg tablet 70 mg PO QWEEK lidocaine 5 % adhesive patch,medicated 1 patch topical DAILY Rx Instructions: APPLY FOR 12 HOURS THEN REMOVE FOR 12 HOURS cholecalciferol (vitamin D3) 1,250 mcg (50,000 unit) capsule 1,250 mcg PO SA@0900 calcitonin (salmon) 200 unit/actuation spray,non-aerosol 1 spray intranasal DAILY Rx Instructions: one nostril every day, alternate sides. insulin glargine [Lantus U-100 Insulin] 100 unit/mL solution 35 unit subcut BEDTIME docusate sodium 100 mg capsule 100 mg PO BID PRN (Reason: constipation) zolpidem 5 mg tablet 5 mg PO BEDTIME PRN (Reason: Sleep) clonazepam 1 mg tablet 1 mg PO BID PRN (Reason: Anxiety) ibuprofen 600 mg tablet 600 mg PO Q8H PRN (Reason: Pain) bupropion HCl 100 mg tablet 100 mg PO DAILY Serevent Diskus 50 mcg/dose blister with device 1 inh INHALATION BID polyethylene glycol 3350 [Miralax] 17 gram/dose powder 17 g PO DAILY diclofenac potassium 50 mg Tablet 50 mg PO TID PRN (Reason: Pain) lisinopril 10 mg Tablet 10 mg PO DAILY 30 Days Qty: 30 0RF Protocol: Hold for SBP< HOLD for SBP < : 90 prednisone 10 mg tablet See Taper PO DIRECTED Qty: 30 0RF Taper: Prednisone 30 mg daily for 5 Days and 0 Hour 20 mg daily for 5 Days and 0 Hour 10 mg daily for 5 Days and 0 Hour Rx Instructions: see taper instructions montelukast 10 mg tablet 10 mg PO BEDTIME albuterol sulfate [ProAir HFA] 90 mcg/actuation HFA aerosol inhaler 2 puff inhalation Q4H PRN (Reason: Shortness Of Breath Or Wheezing) loratadine [Claritin] 10 mg tablet 10 mg PO DAILY theophylline 450 mg tablet extended release 12 hr 450 mg PO Q12H 30 Days Qty: 60 6RF Hold Instructions: hold until follow up with pulmonology sulfamethoxazole-trimethoprim [Bactrim] 400-80 mg tablet 1 tab PO DAILY Qty: 30 4RF (DME) nebulizers [facility] [place] See Rx Instructions .ROUTE Rx Instructions: As directed furosemide [Lasix] 20 mg tablet 20 mg PO DAILY 30 Days Qty: 30 2RF voriconazole 200 mg tablet 200 mg PO Q12H 30 Days Qty: 60 1RF Rx Instructions: administer on empty stomach, at least 1 hour before or after meal(s) azathioprine [Imuran] 50 mg tablet 100 mg PO DAILY 30 Days Qty: 60 6RF folic acid 1 mg tablet 1 mg PO DAILY 30 Days Qty: 30 6RF
[2023-01-20 18:11] LABS: Alanine Aminotransferase 16 U/L (0-31); Alkaline Phosphatase 51 U/L (39-117); Anion Gap 13 (12-20); Aspartate Amino Transferase 17 U/L (5-31); Bilirubin Total 0.2 mg/dL (0.0-1.0); Blood Urea Nitrogen 23 mg/dL (9-16); Calcium 10.3 mg/dL (8.4-10.2); Carbon Dioxide 44 mmol/L (22-29); Chloride 93 mmol/L (96-108); Creatinine Clr Calc Pharmacy 99.7; Estimated Glomerular Filt Rate > 60; Glucose Random 108 mg/dL (60-115); Potassium 4.2 mmol/L (3.3-5.1); Sodium 146 mmol/L (135-145); Total Protein 6.9 g/dL (6.5-8.0)
--- NOTE | 2023-01-20 19:04 | PC.NURSE ---
This RN took over pt care @ 1900. Pt ca&ox4, no signs of distress. Plan of care ongoing.
[2023-01-20 20:43] LABS: D Dimer High Sensitivity 156 NG/ML
--- NOTE | 2023-01-20 20:51 | PC.NURSE ---
Pt requesting to speak with resp. Resp aware. Plan of care ongoing.
--- NOTE | 2023-01-20 20:56 | PC.NURSE ---
Shahnaz Loving with pt.
[2023-01-20] MEDS: Albuterol/Iprat 2.5/0.5MG 3 ML AMPUL.NEB INHALE (21:04)
--- NOTE | 2023-01-20 21:15 | PC.NURSE ---
Pt requested and given pillows. Pt repositioned for comfort. Hob lowered per pt request. Plan of care ongoing.
[2023-01-20 22:58] LABS: Venous Blood Gas Refer to POC result
[2023-01-20 22:59] LABS: VBG Base Excess 24.8 mmol/L; VBG HCO3 51 mmol/L (22-26); VBG pCO2 59 mmHg; VBG pH 7.54 (7.32-7.43); VBG pO2 104 mmHg
--- NOTE | 2023-01-20 23:14 | PC.NURSE ---
Pt requested and given a blanket.
[2023-01-21 00:04] VITALS: PULSE 83; RESP 15; O2SAT 93
--- NOTE | 2023-01-21 01:02 | MHC.EDTECH ---
Call out to [facility] @[phone] to book BLS transport back home, estimated eta given was 25-30 mins per [facility] -Raymundo
[2023-01-21] MEDS: methylPREDNISolone Sod Succ 125 MG/2 ML VIAL IVPUSH (01:15)
--- NOTE | 2023-01-21 02:16 | PC.NURSE ---
Resp therapy with pt. Pt ca&ox4, no signs of distress. Plan of care ongoing.
== END 2023-01-21 03:05 | disposition home or self-care (01) ==
PROVIDERS: Student in an Organized Health Care Education/Training Program; Emergency Provider Emergency Medicine Emergency Medical Services; PCP Family Medicine
DX: J96.22 Acute and chronic respiratory failure with hypercapnia (principal); J96.21 Acute and chronic respiratory failure with hypoxia; J44.9 Chronic obstructive pulmonary disease, unspecified; Z79.899 Other long term (current) drug therapy
CPT/HCPCS: 36415; 80053; 82803; 85025; 85379; 94640; 96374; 99284; 99285; J2930

== ENCOUNTER 2023-01-30 10:44 | Outpatient (AMB) | payer MEDICAID, SELFPAY ==
--- NOTE | 2023-01-30 10:53 | MHC.OFFVIS ---
Intake Vital Signs 01/30/23 10:54 Height 5 ft 1 in Weight 189 lb BMI 35.7 Pulse 89 Pulse Source Pulse Oximeter Pulse Oximetry (%) 95 Oxygen Delivery Method Room Air Intake Visit Reasons: Shortness of Breath [employer] Required: No Allergies No Known Allergies [No Known Allergies*] Allergy (Verified 01/30/23 10:57) HPI HPI Comments History of Present Illness Details The patient is a 53-year-old woman with a known history of asthma COPD overlap syndrome, chronic hypercarbic and hypoxic respiratory failure currently on oxygen and also on a noninvasive ventilator. She has been on high doses of prednisone currently on chronic steroids for ongoing respiratory issues. Recently she was placed on a prednisone taper. She is down to 30 mg at this time. She does respond well to noninvasive ventilator which she uses at nighttime and also as needed. Today she appears to be more dyspneic in appearance. It was apparent that her pulse ox was stable at 97% on her current oxygen however she was significantly tachycardic up to the 130s. I did offer her to get x-rays labs in an EKG today but, the patient opted on getting the tomorrow. I explained to her her symptoms worsen she is to go to the ER to be evaluated. We also talked about her respiratory failure where appears to be getting worse. The patient benefits from a wheelchair to help her with transportation and her appointments. She also may benefit from a sip and puff device as an accessory to noninvasive ventilator which she could potentially use it outside of the home for her progressive respiratory failure. She has been taking theophylline. Had planned to increase her theophylline. however, with the increased heart rate will hold off at this time. herABG from May 2019 demonstrated a pH 7.44 with a pCO2 of 69. Her bicarb also has been elevated at 41. Once we optimize her respiratory therapy with noninvasive ventilator will recheck her blood gas. In the meantime will check a theophylline level and also increase her theophylline level accordingly. Patient did develop worsening respiratory symptoms approximately 3-4 weeks ago. Therefore we will have her get checked for the SARS CoV 2 IgG antibodies. Unfortunately, the patient continues to smoke. We did talk about smoking cessation. Her is going to try to quit and once he quits he is not going to provide her with anymore cigarettes which should be very effective and helping her quit smoking. 04/05/2022 the patient is here for a pulmonary follow-up visit. The the patient continues to do well. She quit smoking altogether since January. She has been motivated after having a very serious admission to the hospital. She also has been able to cut down her prednisone down to 20 mg daily which is very reassuring. She continues use her noninvasive ventilator at nighttime with good effect. She also continues with the oxygen at 2 L continuously. During the office visit we did do a 6 minutes walk test. The patient on room air does desaturate down to 88% after several minutes off the oxygen. On 2 L she does improved about 97%. The patient does not ambulate too much but on 2 L she is able to maintain a pulse ox of 94% with activity. We only ambulated for about 50 ft because of significant back discomfort and leg discomfort. Will have her undergo blood work to assess her theophylline level and also her ..venous CO2 level. She does use a noninvasive ventilator but sometimes she feels a little restless prior to using it and she is wondering if she is starting to accumulate CO2. At this point based on her CO2 levels in the fact that she is tolerating her noninvasive ventilator will continue the current settings. 05/08/2022 the patient is here for a pulmonary follow-up visit. She complains of increasing dyspnea on exertion. Typically address she is on 2 L. Then with activity she does increase it to 3 or 4 L because she is very short of breath. She has been on 20 mg of prednisone. One days she did increase it because she was having shortness of breath. In addition to that she started developing pleuritic left-sided chest discomfort. She did go to the ER on the of this month. The had an x-ray done and also an EKG and cardiac enzymes. Everything looked good. The patient was discharged her medical regimen. She still continues to have that discomfort. She responded well to Lee 2 inhibitors in the past. She knows not to use Motrin or NSAIDs when she is using diclofenac. She also continues use the Trelegy at nighttime and also during the day. During the visit we did do a 6 minutes walk test. The patient actually did well on 2 L throughout the ambulation but she was very short of breath and dizzy needing to stop. It was mainly that heart rate was up in the 130s 140s. This could be a sign of cor pulmonale. The patient did have an echocardiogram demonstrating pulmonary hypertension. The patient is still struggles with her smoking. She is trying to cut down. 05/27/2022 the patient is here for a pulmonary follow-up visit. Since we last spoke she started developing worsening productive cough with green phlegm. It was thick and tenacious. Increasing frequency. She called the office because of that and chest tightness. She was on Levaquin for 14 days. She is feeling better although I will send another week to make sure that we completely treat any potential Pseudomonas or enteric infection. The patient continues to be CT IVIG. She is also stop smoking which is reassuring. Hopefully she will see the benefits of that soon. She does complaint of left-sided pleuritic discomfort. She had been on at Lee 2 inhibitor with good effect previously. In addition to that she has had multiple x-rays without any significant findings. Her last CT scan was back in September 2021 with pulmonary nodules rib fractures and airspace disease. Will go ahead and plan to repeat the CT scan before next visit. She continues use the noninvasive ventilator and also her oxygen. Otherwise patient is without any other complaints. 11/13/2022 the patient is here for a pulmonary follow-up visit. The patient is still having significant difficulties with breathing. Seems to be progressing. She does use her noninvasive ventilator at nighttime and also at times during the daytime. I did encourage her to use the noninvasive ventilator more during the daytime. I will request a sip and puff device from her [employer], [employer]. With the sip and puff device she will have a more easily assessable to use it. She also understands that the noninvasive ventilator has a battery life that is able to will able to work for 6-8 hours she can use it outside of the home. The patient has been on high dose of the prednisone. She is still struggling to breathe. She recently was told that her therapy for her liver. Hepatitis was success. Her last liver function studies are within normal limits. Therefore will try her on some Imuran will monitor closely her levels of her liver function studies. If she tolerates the medication we can increase it with hopes of providing her with a different steroid sparing agent. She did have a blood gas today. She does have the chronic hypercarbic respiratory failure but without any acuity so therefore she can continue to be treated at home. The patient also had lower extremity Dopplers negative for any DVT which is reassuring. 12/19/2022 the patient is here for pulmonary follow-up visit. He is in the hospital. She has been complaining of a right lower extremity pain. She had another Doppler which was negative for DVT. Her legs indeed swollen and somewhat erythematous. She is also having pain in the bottom referred. Breathing flowers she is still having hard time breathing. She is trying to use her noninvasive ventilator during the daytime. Her blood gases overall have been reassuring although her CO2 continues to climb slowly. Her bicarb is also elevated. Therefore will try some Diamox to see we can decrease the bicarb in order to be able to be released at additional CO2. If she tolerates the use of Diamox for 3 days we can also consider adding in the small dose 3 times a week. Will readdress that with repeat blood work in a venous gas in 2 weeks and then will have her see follow-up in 3 weeks. She also ended up getting the sip and puff device although she has not been able to use it because the pressures are too high. Will have to further adjust the pressures according. Since she left the hospital she has been on 40 mg of prednisone. Just yesterday she dropped down to 30 mg because she should really be at a baseline of 20 mg. She will then taper down weeks time to 25 and then again to 20 mg. We will increase her azathioprine that she is taking in order to try to minimize her steroid use and she can increase that to 100 mg. She is taking folate and will add biotin because she will have further hair loss. Unfortunately, even with all these issues the patient continues to smoke cigarettes. She understands that all this medications will being vain if she continues to smoke cigarettes worsening overall health. 01/14/2023 the patient is here for pulmonary follow-up visit. She has been having hard time with the breathing. She is been getting worse. She called initially last week because of the worsening respiratory symptoms. She had blood work done demonstrating chronic hypercarbic respiratory failure and hypoxia with a normal pH which is reassuring. She continues use her noninvasive ventilator at nighttime and also during the daytime. She was started on a prednisone taper and also given a course of levofloxacin for her worsening cough and chest congestion. Was also noted that during the hospitalizations her microbiology was positive for Aspergillus. The patient has been on immunomodulator therapies and also cortical steroids therefore significantly immunocompromised. Therefore, it is reasonable to treat the Aspergillus as a potential pathogen. Will finish the course of Levaquin and then she can start the voriconazole. The patient will going to wean down the prednisone down to 20 mg and will continue taking the Imuran 100 mg. the theophylline levels were undetected although she was told to stop the theophylline when she was in a hospital. Therefore will hold off on theophylline specially with other adverse effects in all the potential medication interactions. We did talk about the severity of her disease. She has end-stage respiratory failure. The patient will need to continue to use the ventilator during the nighttime and also during the daytime. Explained to them that has a battery life about 8 hours and therefore she can not carry the ventilator with her with a fullface mask and she can use it. The mouthpiece, sip and puff, did not work well for her she could not get a good seal and tolerated. Therefore will just continue using the fullface mask for now. If her condition continues to worsen did talk about briefly about a tracheostomy but she understands that this comes with other potential adverse effects and potential complications. 01/30/2023 the patient is here for a pulmonary follow-up visit. She is feeling better. She is down to 30 mg of prednisone. Has not been able to get lower than that. I had sent her a prescription for high dose Imuran but she has not been able to get as of yet. I will resubmit again to the pharmacy. When she is on the higher dose of Imuran hopefully we can decrease her prednisone some. She continues on the IVIG infusions. The patient did start the voriconazole although difficult for her to tolerated. She will continue to take it for now. She continues with her aggressive respiratory therapy. She still has excess lower extremity swelling specially the right lower extremity. We already did Doppler studies ruling out DVT. However, if the leg continues to be swollen I did advise her to go see urgent medical advice to get a repeat ultrasound. In the meantime will increase her diuretic to see if we can improve her volume status and therefore improve the lower extremity edema. The patient also is aware that this area can get infected. If it appears to be more erythematous she can always call her primary care doctor urgent care to be evaluated for cellulitis. The patient continues use her noninvasive ventilator. She is with it all night and seems to be tolerating it well during the daytime as well. The patient does have advanced respiratory failure and at this point she will require assistance from her noninvasive ventilator between 12-16 hours a day we did talk about the portability of the noninvasive ventilator that she can use it outside of the home with a battery life of 6-8 hours. [facility] Medical History Left leg swelling Constipation Asthma with exacerbation Hypercapnic respiratory failure Salmonella gastroenteritis Pleuritic chest pain CHITO (obstructive sleep apnea) Cor pulmonale Obesity with alveolar hypoventilation Aspiration into airway Congestive heart failure Bacteremia Acute and chronic respiratory failure with hypercapnia Morbid obesity Chronic constipation Cellulitis COPD mixed type Leukocytosis Pulmonary congestion Vomiting COPD exacerbation Acute respiratory failure Status asthmaticus with COPD (chronic obstructive pulmonary disease) Hypertensive cardiovascular disease Type 2 diabetes mellitus Morbid obesity Rib fractures Pulmonary nodule Abnormal chest x-ray Opioid dependence Limb swelling Abdominal pain Diabetes mellitus Chronic respiratory failure COPD (chronic obstructive pulmonary disease) Poor dentition Tobacco abuse Asthma-COPD overlap syndrome Hyperlipidemia, unspecified Essential hypertension Type 2 diabetes mellitus with unspecified complications Chronic respiratory failure Hypogammaglobulinemia Surgical History H/O tubal ligation Family History Father Diabetes Other Asthma Social History Household Members: Unknown / Unable to assess Household Members Other:: daughter Housing: Apartment Do you presently have visiting nurse or other home services: Yes Unable to assess alcohol history related to: Unknown Alcohol intake: never Patient Tobacco Use Status: Former Tobacco user Quit Date: February 2022 Tobacco use type: Cigarette Cigarettes Per Day: 1 Years Smoked: 35 e-Cigarette/Vaping Use: Currently Using Second Hand Smoke Exposure: No Substance Use Type: Opiates Advance Directives Date on File: 06/12/21 service: No Current occupational status: unemployed and disabled Review of Systems Const Denies night sweats ENT Denies change in voice, Denies lip swelling, Denies mouth pain, Reports nasal congestion, Reports nasal discharge and Denies tongue swelling Card Denies chest pain, Reports leg edema, Reports dyspnea and Reports dyspnea on exertion Resp Denies change in phlegm color, Denies chest congestion, Reports cough, Denies hemoptysis, Reports dyspnea, Reports dyspnea on exertion and Reports wheezing GI Reports abdominal pain Musc Denies no additional complaints Skin/Breast Denies pruritus and Denies lesions Neuro Denies Neuro-related abnormal movements Psych Denies no additional complaints Blade/Lymph Denies easy bleeding and Denies lymphadenopathy Aller/Immun Denies lip swelling, Denies tongue swelling and Reports wheezing Physical Exam Vital Signs: Last Vital Signs Pulse 89 01/30/23 10:54 Pulse Ox 95 01/30/23 10:54 Oxygen Delivery Method Room Air 01/30/23 10:54 BMI result Body Mass Index 35.7 Last Vital Signs Temp 98.3 F 08/04/21 12:00 Pulse 102 H 08/04/21 12:00 Resp 20 08/04/21 12:00 BP 140/73 H 08/04/21 12:00 Pulse Ox 94 08/04/21 12:00 Oxygen Flow Rate 35 08/03/21 20:00 BMI result Body Mass Index 36.9 Const General: alert Nutritional Appearance: Edematous HEENT Head: Yes normocephalic Neck Neck: Yes normal visual inspection, Yes full ROM and Yes no lymphadenopathy Chest Chest palpation & inspection: normal inspection of the chest Resp Effort & Inspection: prolonged expiratory phase Auscultation: diminished lung sounds Cardio Rate: regular rate Rhythm: regular rhythm Heart sounds: S1 normal heart sound present and S2 normal heart sound present GI Palpation (GI): Soft to palpation and nontender Auscultation: normal bowel sounds Skin General skin exam: rashes and/or lesions noted Extrem Right lower extremity: lower leg Details: erythema and warmth Assessment & Plan Assessment & Plan (1) Asthma-COPD overlap syndrome: Code(s): J44.9 - Chronic obstructive pulmonary disease, unspecified (2) Chronic respiratory failure: Code(s): J96.10 - Chronic respiratory failure, unspecified whether with hypoxia or hypercapnia Qualifiers: Respiratory failure complication: hypoxia and hypercapnia Qualified Code(s): J96.11 - Chronic respiratory failure with hypoxia; J96.12 - Chronic respiratory failure with hypercapnia (3) Hypercapnic respiratory failure: Code(s): J96.92 - Respiratory failure, unspecified with hypercapnia Qualifiers: Chronicity: chronic Qualified Code(s): J96.12 - Chronic respiratory failure with hypercapnia (4) Tobacco abuse: Code(s): Z72.0 - Tobacco use (5) Hypogammaglobulinemia: Code(s): D80.1 - Nonfamilial hypogammaglobulinemia Plan continue NIV while sleeping and while awake. Mouth piece not helpful, will use FM continue prednisone 30mg daily bactrim PCP prophylaxis Increased Imuran 100mg daily, monitor liver enzymes respiratory therapy, Nebs QID Needs to quit smoking continue IVIG every 4 weeks Daliresp increase Lasix daily Voriconazole Blood work and bloodgas next week F/U 4 weeks Orders: Orders Complete Blood Count Auto Diff Today J44.1 - Chronic obstructive pulmonary disease with (acute) exacerbation, J96.21 - Acute and chronic respiratory failure with hypoxia, J96.22 - Acute and chronic respiratory failure with hypercapnia Basic Metabolic Panel Today J44.1 - Chronic obstructive pulmonary disease with (acute) exacerbation, J96.21 - Acute and chronic respiratory failure with hypoxia, J96.22 - Acute and chronic respiratory failure with hypercapnia Erythrocyte Sedimentation Rate Today J44.1 - Chronic obstructive pulmonary disease with (acute) exacerbation, J96.21 - Acute and chronic respiratory failure with hypoxia, J96.22 - Acute and chronic respiratory failure with hypercapnia Venous Blood Gas Today J44.1 - Chronic obstructive pulmonary disease with (acute) exacerbation, J96.21 - Acute and chronic respiratory failure with hypoxia, J96.22 - Acute and chronic respiratory failure with hypercapnia Liver Panel Today J44.1 - Chronic obstructive pulmonary disease with (acute) exacerbation, J96.21 - Acute and chronic respiratory failure with hypoxia, J96.22 - Acute and chronic respiratory failure with hypercapnia Medications: Changed From furosemide (Lasix) 20 mg PO DAILY 30 days 30 tabs 2RF To furosemide (Lasix) 40 mg (2 x 20 mg) PO DAILY 30 days 60 tabs 2RF Refilled azathioprine (Imuran) 100 mg (2 x 50 mg) PO DAILY 30 days 60 tabs 6RF Quality Reporting (2019) Adult ([facility] ) Smoking risk assessment performed?: Yes Patient Tobacco Use Status: Former Tobacco user Coding Level of Care Code Est Pt Level 5 (16076) Diagnoses Asthma-COPD overlap syndrome J44.9 Chronic respiratory failure with hypoxia and hypercapnia J96.11; J96.12 Respiratory failure complication: hypoxia and hypercapnia Chronic respiratory failure with hypercapnia J96.12 Chronicity: chronic Tobacco abuse Z72.0 Hypogammaglobulinemia D80.1 Time Spent (min) 35
[2023-01-30 10:54] VITALS: PULSE 89; O2SAT 95; BMI 35.7
== END 2023-01-30 11:27 | disposition home or self-care (01) ==
PROVIDERS: PCP Family Medicine; Visit Provider Hospitalist
DX: J44.9 Chronic obstructive pulmonary disease, unspecified (principal); J96.11 Chronic respiratory failure with hypoxia; J96.12 Chronic respiratory failure with hypercapnia; Z87.891 Personal history of nicotine dependence; D80.1 Nonfamilial hypogammaglobulinemia
CPT/HCPCS: 99214

== ENCOUNTER → 2023-01-30 10:44 | Outpatient (BNVA) | payer MEDICAID, SELFPAY | PROVIDERS: PCP Family Medicine; Visit Provider Hospitalist | DX: J44.9 Chronic obstructive pulmonary disease, unspecified (principal); J96.11 Chronic respiratory failure with hypoxia; J96.12 Chronic respiratory failure with hypercapnia; D80.1 Nonfamilial hypogammaglobulinemia; Z72.0 Tobacco use | CPT/HCPCS: 99212 ==

== ENCOUNTER 2023-02-02 09:43 | Inpatient (IN) | payer MEDICAID, SELFPAY ==
[2023-02-02] VITALS (8 sets, daily range): BP systolic 108–179; BP diastolic 66–99; PULSE 84–105; RESP 14–22; TEMP 36.9–37.1; O2SAT 90–96; BMI 40.2
--- NOTE | ~2023-02-02 | XR_ITS ---
EXAMINATION: XR chest 1V CLINICAL INFORMATION: Reason for Exam sob COMPARISON: 01/16/2023 TECHNIQUE: XR chest 1V Tubes and lines: None Lungs and pleura: Mild vascular congestion, very subtle increased interstitial marking, cannot rule out mild interstitial edema or interstitial pneumonitis. No significant pleural effusion. Heart and mediastinum: The mediastinum is within normal limits.. Bones/soft tissue: There are old healed multiple rib fractures. XR/XR chest 1V IMPRESSION: * Mild vascular congestion. * Very subtle increased interstitial marking, cannot rule out mild interstitial edema or interstitial pneumonitis. * No significant pleural effusion.
--- NOTE | 2023-02-02 09:45 | ECG_ITS ---
Test Reason : sob Blood Pressure : / mmHG Vent. Rate : 096 BPM Atrial Rate : 096 BPM P-R Int : 130 ms QRS Dur : 112 ms QT Int : 384 ms P-R-T Axes : 052 014 044 degrees QTc Int : 485 ms Normal sinus rhythm Incomplete right bundle branch block Nonspecific ST and T wave abnormality Prolonged QT Abnormal ECG When compared with ECG of 16-JAN-2023 20:07, T wave amplitude has decreased in Anterolateral leads Referred By: Sara Doe Electronically Signed By:BLANCO STUBBS MD
--- NOTE | 2023-02-02 09:47 | ED_ITS ---
HPI - General Adult General Chief complaint: Dyspnea Stated complaint: SOB,H/O COPD,ON A DUONEB PER EMS Time Seen by Provider: 02/02/23 09:45 Source: patient, EMS, RN notes reviewed and old records reviewed Mode of arrival: EMS Limitations: no limitations History of Present Illness HPI narrative: 53-year-old female history of obesity with alveolar hypoventilation, COPD mixed type, diabetes, asthma, obstructive sleep apnea, hypertension , hypogammaglobulinemia presenting to the emergency department shortness of breath & wheezing since this am. Patient uses BiPAP at home and has used multiple breathing tx w/ little to no relief.. She presents with EMS on a DuoNeb saturating 100% on room air. Patient reports this feels like her typical asthma/COPD exacerbation. Denies any sick contacts. Denies chest pain, fevers, chills, nausea, vomiting, headache, vision changes, dizziness, weakness. Related Data Home Medications Medication Instructions Recorded Confirmed albuterol sulfate 90 mcg/actuation 2 puff inhalation Q4H PRN 12/30/19 12/21/22 aerosol inhaler (ProAir HFA) Shortness Of Breath Or Wheezing loratadine 10 mg tablet (Claritin) 10 mg PO DAILY 12/30/19 12/21/22 montelukast 10 mg tablet 10 mg PO BEDTIME 12/30/19 12/21/22 diltiazem HCl 360 mg capsule,24 360 mg PO DAILY 11/16/20 12/21/22 hr,extended release (Tiadylt ER) roflumilast 500 mcg tablet 500 mcg PO DAILY 11/16/20 12/21/22 (Daliresp) rosuvastatin 5 mg tablet 5 mg PO BEDTIME 11/16/20 12/21/22 metformin 500 mg tablet,extended 1,000 mg PO BID 05/18/21 12/21/22 release 24 hr methadone 10 mg/mL oral concentrate 50 mg PO DAILY 06/06/21 10/20/22 hydralazine 25 mg tablet 25 mg PO TIDWM 11/02/21 12/21/22 insulin lispro 100 unit/mL 4 unit subcut TIDAC 11/02/21 12/21/22 subcutaneous solution clonazepam 1 mg tablet 1 mg PO BID PRN Anxiety 06/28/22 12/21/22 ibuprofen 600 mg tablet 600 mg PO Q8H PRN Pain 06/28/22 12/21/22 alendronate 70 mg tablet 70 mg PO QWEEK 07/29/22 12/21/22 lamotrigine 150 mg tablet 150 mg PO BID 07/29/22 12/21/22 lidocaine 5 % topical patch 1 patch topical DAILY 07/29/22 12/21/22 calcitonin (salmon) 200 1 spray intranasal DAILY 09/30/22 12/21/22 unit/actuation nasal spray cholecalciferol (vitamin D3) 1,250 1,250 mcg PO SA@0900 09/30/22 12/21/22 mcg (50,000 unit) capsule insulin glargine 100 unit/mL 35 unit subcut BEDTIME 09/30/22 12/21/22 subcutaneous solution (Lantus U-100 Insulin) docusate sodium 100 mg capsule 100 mg PO BID PRN constipation 10/20/22 12/21/22 zolpidem 5 mg tablet 5 mg PO BEDTIME PRN Sleep 10/20/22 12/21/22 nebulizers 11/08/22 12/21/22 bupropion HCl 100 mg tablet 100 mg PO DAILY 12/21/22 12/21/22 diclofenac potassium 50 mg tablet 50 mg PO TID PRN Pain 12/21/22 12/21/22 polyethylene glycol 3350 17 17 g PO DAILY constipation 12/21/22 12/21/22 gram/dose oral powder (Miralax) salmeterol 50 mcg/dose blister 1 inh inhalation BID 12/21/22 12/21/22 powder for inhalation (Serevent Diskus) ammonium lactate 12 % lotion 1 appl topical DAILY PRN Rash 02/02/23 azathioprine 50 mg tablet (Imuran) 50 mg PO DAILY 02/02/23 furosemide 20 mg tablet (Lasix) 20 mg PO DAILY 02/02/23 Previous Rx's Medication Instructions Recorded simethicone 80 mg chewable tablet 80 mg PO QIDWMHS PRN Abdominal 01/05/22 (Gas Relief (simethicone)) Distention #30 tabs theophylline 450 mg 450 mg PO Q12H 30 days #60 tabs 05/08/22 tablet,extended release,12 hr arformoterol 15 mcg/2 mL solution 2 ml inhalation Q12H 30 days #120 06/07/22 for nebulization (Brovana) mL tiotropium bromide 18 mcg capsule 1 cap inhalation DAILY #30 ea 07/09/22 with inhalation device (Spiriva with HandiHaler) budesonide 0.5 mg/2 mL suspension 0.5 mg (2 mL) inhalation BID #120 08/15/22 for nebulization mL ipratropium 0.5 mg-albuterol 3 mg 3 ml PO Q4H PRN for wheezing #540 09/02/22 (2.5 mg base)/3 mL nebulization mL soln sodium chloride 7 % for 4 ml inhalation BID #240 mL 09/20/22 nebulization omeprazole 40 mg capsule,delayed 40 mg PO DAILY@0630 30 days #30 09/24/22 release caps folic acid 1 mg tablet 1 mg PO DAILY 30 days #30 tabs 12/19/22 lisinopril 10 mg tablet 10 mg PO DAILY 30 days #30 tabs 12/27/22 gabapentin 300 mg capsule 300 mg PO BID #60 caps 01/14/23 voriconazole 200 mg tablet 200 mg PO Q12H 30 days #60 tabs 01/14/23 Allergies Allergy/AdvReac Type Severity Reaction Status Date / Time No Known Allergies Allergy Verified 01/30/23 10:57 [No Known Allergies*] Review of Systems 2 Review of Systems: Constitutional : No Weight loss, No Fever, No Chills, No Fatigue, No Malaise ENT/Mouth : No sore throat, No Rhinorrhea Eyes: No Eye Pain, No Swelling, No Redness Cardiovascular : No Chest Pain, + SOB, No Dyspnea on Exertion, No Orthopnea, No Edema, No Palpitations Respiratory : No Cough, No Sputum, + Wheezing Gastrointestinal : No Nausea, No Vomiting, No Diarrhea, No Constipation, No abdominal Pain, No Hematochezia, No Melena Genitourinary : No Dysuria, No Urinary Frequency, No Hematuria, Musculoskeletal : No joint pain, No Myalgias, No Joint Swelling Skin : No Skin Lesions, No rash Neuro : No Weakness, No Numbness, No Dizziness, No Headache Psych : No Anxiety/Panic, No Depression All other systems reviewed and are negative Yes all other systems are reviewed and are negative PMFSH Past Medical History Attestation statement: The following information was validated with the patient. Source: old records reviewed and nursing notes reviewed Medical History Left leg swelling Constipation Asthma with exacerbation Hypercapnic respiratory failure Salmonella gastroenteritis Pleuritic chest pain CHITO (obstructive sleep apnea) Cor pulmonale Obesity with alveolar hypoventilation Aspiration into airway Congestive heart failure Bacteremia Acute and chronic respiratory failure with hypercapnia Morbid obesity Chronic constipation Cellulitis COPD mixed type Leukocytosis Pulmonary congestion Vomiting COPD exacerbation Acute respiratory failure Status asthmaticus with COPD (chronic obstructive pulmonary disease) Hypertensive cardiovascular disease Type 2 diabetes mellitus Morbid obesity Rib fractures Pulmonary nodule Abnormal chest x-ray Opioid dependence Limb swelling Abdominal pain Diabetes mellitus Chronic respiratory failure COPD (chronic obstructive pulmonary disease) Poor dentition Tobacco abuse Asthma-COPD overlap syndrome Hyperlipidemia, unspecified Essential hypertension Type 2 diabetes mellitus with unspecified complications Chronic respiratory failure Hypogammaglobulinemia Surgical History H/O tubal ligation Family History Family History Father Diabetes Other Asthma Social History Social History Household Members: Unknown / Unable to assess Household Members Other:: daughter Housing: Apartment Do you presently have visiting nurse or other home services: Yes Unable to assess alcohol history related to: Unknown Alcohol intake: never Patient Tobacco Use Status: Former Tobacco user Quit Date: February 2022 Tobacco use type: Cigarette Cigarettes Per Day: 1 Years Smoked: 35 Smoked in Last 30 Days: No e-Cigarette/Vaping Use: Currently Using Second Hand Smoke Exposure: No Use of substances other than those prescribed or required for medical reasons: No Substance Use Type: Opiates Advance Directives: Yes Advance Directives on File: Yes Advance Directives Date on File: 06/12/21 service: No Current occupational status: unemployed and disabled Physical Exam ED Vital Signs: Vital Signs - 24 hr 02/02/23 09:46 02/02/23 13:17 Temperature 98.5 F Pulse Rate 103 H 97 Respiratory Rate 22 H 14 Blood Pressure 161/83 H 144/66 H Pulse Oximetry 90 L 95 Oxygen Delivery Method Room Air Nasal Cannula Oxygen Flow Rate 2 BMI result Body Mass Index 40.2 vss Appearance: Alert.? Oriented X3.? Mild acute distress.? Head: Normocephalic, atraumatic, no step-offs or deformities Eyes: Pupils equal, round and reactive to light.? ENT: Pharynx normal.? Neck: Normal inspection.? Neck supple.? CVS: Normal heart rate and rhythm.? Pulses normal.? Respiratory: Mild respiratory distress.? Breath sounds diminished bilaterally with with diffuse expiratory wheezing..?? Abdomen: Soft and nontender.? Skin: Skin warm and dry.? Normal skin color.? Normal skin turgor.? Extremities: No lower extremity edema.? No calf ttp. 5/5 strength to bilateral upper and lower extremities Back: No midline tenderness, no C-spine tenderness, full range of motion, no CVA tenderness bilaterally Neuro: Oriented X 3.? No motor deficit.? No sensory deficit. CN 2-12 intact Course Reevaluation(s) Reevaluation #1: Patient 87% on RA at rest. Will place on O2 patient wears 2.0 L at baseline so will put her on 2.5 as she should be wearing this at home. Time: 09:55 Reevaluation #2: CBC appears to be around patient's baseline with chronic leukocytosis. Chemistry with chronically elevated carbon dioxide level 36, appears to be around her baseline. BUN of 21 again this is patient's baseline. Magnesium 1.5 patient was given IV Mag. Troponin and BNP pending aswell as flu/covid/rsv. Time: 10:43 Reevaluation #3: Troponin negative, BNP within normal limits. Second troponin pending COVID, flu, RSV negative. X-ray showing mild vascular congestion and very subtle increased interstitial markings can not rule out interstitial edema or interstitial pneumonitis. Patient still has wheezing. Will give another treatment plan is hospital admission. Time: 14:59 Additional Reevaluation(s): Patient went from 95% on home 2 L nasal cannula to 85% with just standing. Medications Administered Generic Name Dose Route Start Last Admin Trade Name Freq PRN Reason Stop Dose Admin Albuterol/Ipratropium 3 ml 02/02/23 15:45 02/02/23 15:58 Albuterol/Iprat 2.5/0.5mg 3 Ml Ampul.Neb INHALE Not Given Q4H ANA Discontinued Medications Generic Name Dose Route Start Last Admin Trade Name Freq PRN Reason Stop Dose Admin Magnesium Sulfate 2 gm in 50 mls @ 25 mls/hr 02/02/23 09:52 02/02/23 11:07 Magnesium Sulfate/H2o IV 02/02/23 11:51 Infused ONCE ONE Infusion Methylprednisolone Sodium Succinate 125 mg 02/02/23 09:52 02/02/23 10:17 Methylprednisolone Sod Succ 125 Mg/2 Ml Vial IVPUSH 02/02/23 09:53 125 mg ONCE ONE Administration Medical Decision Making Medical Decision Making [facility] Narrative: 0950 53-year-old female presents with shortness shortness of breath and wheezing for the past few days. Physical exam significant for Mild respiratory distress.? Breath sounds diminished bilaterally with diffuse expiratory wheezing..? Likely chronic lung conditions versus acute asthma exacerbation versus viral illness. Unlikely pulmonary embolism, pneumonia, ACS. Tachycardia secondary to multiple nebulizing treatments, unlikely from pulmonary embolism or dysrhythmia Plan labs, imaging, viral testing. Differential Diagnosis Differential Diagnoses: The differential diagnosis associated with the presentation includes Likely chronic lung conditions versus acute asthma exacerbation versus viral illness. Unlikely pulmonary embolism, pneumonia, ACS. Tachycardia secondary to multiple nebulizing treatments, unlikely from pulmonary embolism or dysrhythmia Admission/Observation Consideration of admission/observation: Escalation of care including admission/observation considered Lab Data [facility] Lab Attestation statement: I reviewed the patient's lab results. 02/02/23 10:10 02/02/23 10:10 Labs: Lab Results 02/02/23 02/02/23 02/02/23 Range/Units 10:10 10:15 10:17 WBC 12.4 H (4.8-10.8) X10*3/uL RBC 3.85 L (4.20-5.50) X10*6/uL Hgb 11.4 L (12.0-16.0) g/dl Hct 37.9 (37.0-47.0) % MCV 98.4 H (80.0-98.0) fL MCH 29.6 (27.0-33.0) pg MCHC 30.1 L (31.0-35.0) g/dl RDW 14.8 (11.0-16.0) % Plt Count 261 (160-400) X10*3/uL MPV 8.8 L (9.4-12.3) fL Immature Gran % (Auto) 0.9 H (0.0-0.4) % Neut % (Auto) 80.9 H (45-73) % Lymph % (Auto) 11.7 L (20-40) % Hendry % (Auto) 4.7 (2-11) % Eos % (Auto) 1.6 (0-4) % Baso % (Auto) 0.2 (0-2) % Lymph # (Auto) 1.5 (1.2-4.9) X10*3/uL Hendry # (Auto) 0.6 (0.1-1.2) X10*3/uL Eos # (Auto) 0.2 (0.0-0.4) X10*3/uL Baso # (Auto) 0.0 (0.0-0.2) X10*3/uL Abs Immat Gran (auto) 0.11 H (0.00-0.03) X10*3/uL Absolute Neuts (auto) 10.0 H (2.0-8.3) x10*3/uL Absolute Nucleated RBC 0.000 (0.0-0.012) X10*3/uL Nucleated RBC % (auto) 0.0 (0.0-0.2) /100WBC PT 10.4 L (11.1-13.3) SEC INR 0.9 (0.9-1.1) VBG pH 7.45 H (7.32-7.43) VBG pCO2 69 mmHg VBG pO2 149 mmHg VBG HCO3 48 H (22-26) mmol/L VBG O2 Saturation 99.0 % VBG Base Excess 20.1 mmol/L Sodium 140 (135-145) mmol/L Potassium 4.3 (3.3-5.1) mmol/L Chloride 92 L (96-108) mmol/L Carbon Dioxide 36 H (22-29) mmol/L Anion Gap 16 (12-20) BUN 21 H (9-16) mg/dL Creatinine 0.66 (0.5-1.4) mg/dL Estim Creat Clear Calc 104.6 Estimated GFR > 60 Random Glucose 242 H (60-115) mg/dL Calcium 9.4 D (8.4-10.2) mg/dL Magnesium 1.5 L (1.6-2.6) mg/dL Total Bilirubin 0.3 (0.0-1.0) mg/dL AST 19 (5-31) U/L ALT 17 (0-31) U/L Alkaline Phosphatase 44 (39-117) U/L Troponin I High Sens 10.4 (<3.5-17.0) ng/L B-Natriuretic Peptide 14 (<100) pg/mL Total Protein 6.8 (6.5-8.0) g/dL Albumin 3.8 (3.5-5.0) g/dL Influenza Type A (PCR) NEGATIVE (Negative) Influenza Type B (PCR) NEGATIVE (Negative) RSV RNA Qual (PCR) NEGATIVE (Negative) SARS-CoV-2 RNA (RT-PCR) NEGATIVE (Negative) Independent Interpretation I performed an independent interpretation of an: EKG (ventricular rate of 96, MO normal, qrs normal, qt/qtc prolongued . EKG w/ incomplete RBBB and prolongued QT/QTC. No ischemic changes. ) and Plain X-Ray Radiology Impression Discussion of test interpretation with radiology: I have reviewed the radiologist's reading. Critical Care Time Critical Care Time Critical Care Time: Yes Total Critical Care Time: 35 Attestation: I attest to this time spent taking care of the patient, obtaining history, physical, reviewing labs, imaging, speaking to my attending, speaking to specialist. Discharge Plan Discharge Clinical Impression: Chronic lung disease, Acute on chronic respiratory failure with hypoxia and hypercapnia, Hypoxia Patient Disposition: Admitted As Inpatient
[2023-02-02] MEDS: methylPREDNISolone Sod Succ 125 MG/2 ML VIAL IVPUSH (10:17)
[2023-02-02 10:19] LABS: MANUAL DIFF FLAG NO
[2023-02-02] MEDS: Magnesium Sulfate/H2O 2 GM/50 ML PIGGYBACK IV (10:19)
[2023-02-02 10:21] LABS: Basophils Percent Auto 0.2 % (0-2); Eosinophils Absolute Auto 0.2 X10*3/uL (0.0-0.4); Eosinophils Percent Auto 1.6 % (0-4); Hematocrit 37.9 % (37.0-47.0); Hemoglobin 11.4 g/dl (12.0-16.0); Imm Gran Abs Auto 0.11 X10*3/uL (0.00-0.03); Imm Gran Pct Auto 0.9 % (0.0-0.4); Lymphocytes Absolute Auto 1.5 X10*3/uL (1.2-4.9); Lymphocytes Percent Auto 11.7 % (20-40); Mean Corpuscular HGB Conc 30.1 g/dl (31.0-35.0); Mean Corpuscular Hemoglobin 29.6 pg (27.0-33.0); Mean Corpuscular Volume 98.4 fL (80.0-98.0); Mean Platelet Volume 8.8 fL (9.4-12.3); Monocytes Absolute Auto 0.6 X10*3/uL (0.1-1.2); Monocytes Percent Auto 4.7 % (2-11); Neutrophils Percent Auto 80.9 % (45-73); Platelet Count 261 X10*3/uL (160-400); Red Blood Count 3.85 X10*6/uL (4.20-5.50); Red Cell Distribution Width 14.8 % (11.0-16.0); White Blood Count 12.4 X10*3/uL (4.8-10.8)
[2023-02-02 10:25] LABS: Venous Blood Gas Refer to POC result
[2023-02-02 10:26] LABS: VBG Base Excess 20.1 mmol/L; VBG HCO3 48 mmol/L (22-26); VBG pCO2 69 mmHg; VBG pH 7.45 (7.32-7.43); VBG pO2 149 mmHg
--- NOTE | 2023-02-02 10:26 | PC.NURSE ---
pt comes in via EMS. satts 87-90% RA, lung sounds wheezing in upper lobes. Pt currently on duoneb treatment run off of 5L O2. (100% SPO2). Ptreports that this feels like her typical COPD exacerbation. labs drawn and IV inserted, 22g left forearm. solumedrol given, mag infusing. Pt took her prednisone this morning - PA notified. sinus tach on tele monitor.
[2023-02-02 10:38] LABS: INTERNATIONAL NORM RATIO 0.9 (0.9-1.1); Prothrombin Time 10.4 SEC (11.1-13.3)
[2023-02-02 10:41] LABS: Alanine Aminotransferase 17 U/L (0-31); Albumin Level 3.8 g/dL (3.5-5.0); Alkaline Phosphatase 44 U/L (39-117); Anion Gap 16 (12-20); Aspartate Amino Transferase 19 U/L (5-31); Bilirubin Total 0.3 mg/dL (0.0-1.0); Blood Urea Nitrogen 21 mg/dL (9-16); Calcium 9.4 mg/dL (8.4-10.2); Carbon Dioxide 36 mmol/L (22-29); Chloride 92 mmol/L (96-108); Creatinine Clr Calc Pharmacy 104.6; Estimated Glomerular Filt Rate > 60; Glucose Random 242 mg/dL (60-115); Magnesium 1.5 mg/dL (1.6-2.6); Potassium 4.3 mmol/L (3.3-5.1); Sodium 140 mmol/L (135-145); Total Protein 6.8 g/dL (6.5-8.0)
[2023-02-02 10:42] LABS: B Type Natriuretic Peptide 14 pg/mL (<100)
[2023-02-02 10:47] LABS: Troponin-I High Sensitivity 10.4 ng/L (<3.5-17.0)
[2023-02-02 11:07] LABS: Influenza A PCR NEGATIVE (Negative); Influenza B PCR NEGATIVE (Negative); Resp Syncy Virus RNA Qual PCR NEGATIVE (Negative); SARS COV2 PCR INHOUSE NEGATIVE (Negative)
--- NOTE | 2023-02-02 11:13 | PC.NURSE ---
pt reports that she can feel that her CO2 is high and is requesting BiPAP. etCO2 on tele is 77. PA notified.
--- NOTE | 2023-02-02 13:43 | PC.NURSE ---
pt sleeping. 95% 2.5L O2.
--- NOTE | 2023-02-02 15:54 | PM.IMHP ---
History of Present Illness Date of Service: 02/02/23 Attending physician on admission: Marielos Guillermo Chief Complaint: hypoxia 52-year-old woman with a past medical history of asthma COPD overlap syndrome, chronic? hypercarbic and hypoxic respiratory failure currently on 3l via [place] home oxygen, on chronic steroids,? diabetes mellitus, hypertension, hyperlipidemia, tobacco use, and Hypogammaglobulinemia on IVIG,? opioid dependence on methadone who presented to emergency department Via EMS with sob -patient is having short of breath and wheezing which was slowly getting worse as per the patient so she decided to come to the hospital. Discussed with the ED patient had multiple nebulizer treatment, steroid, magnesium but not significant relief-her sats at rest are in 90s but with minimal activity goes down into 80s as per ED. so admission is given for acute hypoxemic respiratory failure secondary to COPD. Patient still short of breath with talking but says that it it is somewhat improved since she came, gets more short of breath with activity. Denies any new complaint of chest pain or abdominal pain or fever or chills or nausea or vomiting Denies dry cough Denies any weakness or numbness. Lab imaging EKG reviewed: wbc: 12.4 h/h 11.4/37.4 platlets : 261. BMp: Seems fine, magnesium is 1.5. VB.45 /69/149. trop negx1 , bnp 14. XR/XR chest 1V IMPRESSION: * Mild vascular congestion. * Very subtle increased interstitial marking, cannot rule out mild interstitial edema or interstitial pneumonitis. * No significant pleural effusion. Patient received nebs, magnesium, steroids in the ED with some effect. Review of Systems Review of Systems: As above. [facility] Medical History Left leg swelling Constipation Asthma with exacerbation Hypercapnic respiratory failure Salmonella gastroenteritis Pleuritic chest pain CHITO (obstructive sleep apnea) Cor pulmonale Obesity with alveolar hypoventilation Aspiration into airway Congestive heart failure Bacteremia Acute and chronic respiratory failure with hypercapnia Morbid obesity Chronic constipation Cellulitis COPD mixed type Leukocytosis Pulmonary congestion Vomiting COPD exacerbation Acute respiratory failure Status asthmaticus with COPD (chronic obstructive pulmonary disease) Hypertensive cardiovascular disease Type 2 diabetes mellitus Morbid obesity Rib fractures Pulmonary nodule Abnormal chest x-ray Opioid dependence Limb swelling Abdominal pain Diabetes mellitus Chronic respiratory failure COPD (chronic obstructive pulmonary disease) Poor dentition Tobacco abuse Asthma-COPD overlap syndrome Hyperlipidemia, unspecified Essential hypertension Type 2 diabetes mellitus with unspecified complications Chronic respiratory failure Hypogammaglobulinemia Family History Father Diabetes Other Asthma Surgical History H/O tubal ligation Social History Household Members: Family Household Members Other:: daughter Housing: Apartment Do you presently have visiting nurse or other home services: Yes Unable to assess alcohol history related to: Unknown Alcohol intake: never Patient Tobacco Use Status: Former Tobacco user Quit Date: February 2022 Tobacco use type: Cigarette Cigarettes Per Day: 1 Years Smoked: 35 Smoked in Last 30 Days: No e-Cigarette/Vaping Use: Currently Using Second Hand Smoke Exposure: No Use of substances other than those prescribed or required for medical reasons: No Substance Use Type: Opiates Currently Displaying Signs/Symptoms of Drug Intoxication Withdrawal: No Have you been hit, kicked, punched, or otherwise hurt by someone within the past year? If so, by whom?: No Do you feel safe in your current relationship?: Yes Is there a partner from a previous relationship who is making you feel unsafe now?: No Are you made to feel afraid or neglected: No Spiritual Healthcare Practices: Worship Advance Directives: Yes Advance Directives on File: Yes Advance Directives Date on File: 06/12/21 Do you have thoughts of harming others: None Do you have a plan to hurt others: No Plan Recently lost weight without trying: No Eating poorly because of decreased appetite: No Nutrition Risks: No Nutritional Risk Patient : No : No Poor oral hygiene: No service: No Current occupational status: unemployed and disabled Meds Allergies Allergy/AdvReac Type Severity Reaction Status Date / Time No Known Allergies Allergy Verified 01/30/23 10:57 [No Known Allergies*] Active Medications: Current Medications Albuterol/Ipratropium (Albuterol/Iprat 2.5/0.5mg 3 Ml Ampul.Neb) 3 ml INHALE Q4H ANA Albuterol/Ipratropium (Albuterol/Iprat 2.5/0.5mg 3 Ml Ampul.Neb) 3 ml INHALE Q3H PRN PRN Reason: sob Enoxaparin Sodium (Enoxaparin Sodium 40 Mg/0.4 Ml Syringe) 40 mg SUBCUT Q24H ANA Methylprednisolone Sodium Succinate (Methylprednisolone Sod Succ 40 Mg/Ml Vial) 40 mg IVPUSH TID [facility] Sodium Chloride (0.9 % Sodium Chloride Flush 3 Ml Syringe) 3 ml IVFLUSH QSHIFT [facility] Home Medications Medication Instructions Recorded Confirmed Last Taken Type albuterol sulfate 90 mcg/actuation 2 puff inhalation Q4H PRN 12/30/19 02/02/23 07/28/22 23:10 History aerosol inhaler (ProAir HFA) Shortness Of Breath Or Wheezing loratadine 10 mg tablet (Claritin) 10 mg PO DAILY 12/30/19 02/02/23 02/02/23 09:00 History montelukast 10 mg tablet 10 mg PO BEDTIME 12/30/19 02/02/23 02/02/23 09:00 History diltiazem HCl 360 mg capsule,24 360 mg PO DAILY 11/16/20 02/02/23 02/02/23 09:00 History hr,extended release (Tiadylt ER) roflumilast 500 mcg tablet 500 mcg PO DAILY 11/16/20 02/02/23 02/02/23 09:00 History (Daliresp) rosuvastatin 5 mg tablet 5 mg PO BEDTIME 11/16/20 02/02/23 02/02/23 09:00 History metformin 500 mg tablet,extended 1,000 mg PO BID 05/18/21 02/02/23 02/02/23 09:00 History release 24 hr methadone 10 mg/mL oral concentrate 50 mg PO DAILY 06/06/21 10/20/22 02/02/23 09:00 History hydralazine 25 mg tablet 25 mg PO TIDWM 11/02/21 02/02/23 02/02/23 09:00 History insulin lispro 100 unit/mL 4 unit subcut TIDAC 11/02/21 02/02/23 02/02/23 09:00 History subcutaneous solution clonazepam 1 mg tablet 1 mg PO BID PRN Anxiety 06/28/22 02/02/23 Unknown History ibuprofen 600 mg tablet 600 mg PO Q8H PRN Pain 06/28/22 02/02/23 Unknown History alendronate 70 mg tablet 70 mg PO QWEEK 07/29/22 12/21/22 09/28/22 History lamotrigine 150 mg tablet 150 mg PO BID 07/29/22 02/02/23 02/02/23 09:00 History lidocaine 5 % topical patch 1 patch topical DAILY 07/29/22 02/02/23 02/02/23 09:00 History calcitonin (salmon) 200 1 spray intranasal DAILY 09/30/22 02/02/23 02/02/23 09:00 History unit/actuation nasal spray cholecalciferol (vitamin D3) 1,250 1,250 mcg PO WE@0900 09/30/22 02/02/23 01/29/23 History mcg (50,000 unit) capsule insulin glargine 100 unit/mL 35 unit subcut BEDTIME 09/30/22 02/02/23 02/02/23 09:00 History subcutaneous solution (Lantus U-100 Insulin) docusate sodium 100 mg capsule 100 mg PO BID PRN constipation 10/20/22 02/02/23 Unknown History zolpidem 5 mg tablet 5 mg PO BEDTIME PRN Sleep 10/20/22 02/02/23 Unknown History nebulizers 11/08/22 02/02/23 02/02/23 09:00 History bupropion HCl 100 mg tablet 100 mg PO DAILY 12/21/22 02/02/23 02/02/23 09:00 History diclofenac potassium 50 mg tablet 50 mg PO TID PRN Pain 12/21/22 02/02/23 Unknown History polyethylene glycol 3350 17 17 g PO DAILY constipation 12/21/22 02/02/23 02/02/23 09:00 History gram/dose oral powder (Miralax) salmeterol 50 mcg/dose blister 1 inh inhalation BID 12/21/22 02/02/23 02/02/23 09:00 History powder for inhalation (Serevent Diskus) ammonium lactate 12 % lotion 1 appl topical DAILY PRN Rash 02/02/23 02/02/23 Unknown History azathioprine 50 mg tablet (Imuran) 50 mg PO DAILY 02/02/23 02/02/23 02/02/23 09:00 History furosemide 20 mg tablet (Lasix) 40 mg PO DAILY 02/02/23 02/02/23 02/02/23 09:00 History Physical Exam Vital Signs and Narrative: Vital Signs: Last Vital Signs Temp 98.5 F 02/02/23 09:46 Pulse 97 02/02/23 13:17 Resp 14 02/02/23 13:17 BP 144/66 H 02/02/23 13:17 Pulse Ox 95 02/02/23 13:17 O2 Del Method Nasal Cannula 02/02/23 13:17 O2 Flow Rate 2 02/02/23 13:17 BMI result Body Mass Index 40.2 Appearance: Alert.? Oriented X3.?sob Eyes: Pupils equal, round and reactive to light.? Sclera nonicteric.? ENT: Pharynx normal.? Moist mucous membranes. cvs: rrr, [id number] . res: cair entry dimished ,faint wheezing b/l. abd: no rebound or guarding ,nt, bs present. ext pulses present , no cyanosis . neuro: axo3 , nonfocal. Results Labs 02/02/23 10:10 02/02/23 10:10 Labs: Laboratory Results - last 24 hr 02/02/23 02/02/23 02/02/23 10:10 10:15 10:17 MCV 98.4 H MCH 29.6 MCHC 30.1 L RDW 14.8 Plt Count 261 MPV 8.8 L Immature Gran % (Auto) 0.9 H Neut % (Auto) 80.9 H Lymph % (Auto) 11.7 L [place] % (Auto) 4.7 Eos % (Auto) 1.6 Baso % (Auto) 0.2 Lymph # (Auto) 1.5 [place] # (Auto) 0.6 Eos # (Auto) 0.2 Baso # (Auto) 0.0 Abs Immat Gran (auto) 0.11 H Absolute Neuts (auto) 10.0 H Absolute Nucleated RBC 0.000 Nucleated RBC % (auto) 0.0 PT 10.4 L INR 0.9 VBG pH 7.45 H VBG pCO2 69 VBG pO2 149 VBG HCO3 48 H VBG O2 Saturation 99.0 VBG Base Excess 20.1 Anion Gap 16 Estim Creat Clear Calc 104.6 Estimated GFR > 60 Random Glucose 242 H Calcium 9.4 D Magnesium 1.5 L Total Bilirubin 0.3 AST 19 ALT 17 Alkaline Phosphatase 44 B-Natriuretic Peptide 14 Total Protein 6.8 Albumin 3.8 Influenza Type A (PCR) NEGATIVE Influenza Type B (PCR) NEGATIVE RSV RNA Qual (PCR) NEGATIVE SARS-CoV-2 RNA (RT-PCR) NEGATIVE ECG Attestation: I personally reviewed and interpreted this ECG as follows: (nsr) Imaging Radiologist's Impressions: Impressions Chest X-Ray 02/02/23 10:14 IMPRESSION: * Mild vascular congestion. * Very subtle increased interstitial marking, cannot rule out mild interstitial edema or interstitial pneumonitis. * No significant pleural effusion. Assessment and Plan (1) Hypoxia: Status: Acute (2) COPD exacerbation: Status: Acute Plan 52-year-old woman with history of chronic respiratory failure, hypercarbic respiratory failure with COPD and asthma overlap admitted to the ICU for acute respiratory failure. Acute on chronic hypoxic, hypercarbic respiratory failure secondary to COPD/asthma overlap syndrome. VBG seems fine, chest x-ray looks similar to before, resp status improving after receiving nebs, steroids and magnesium, but still desats into 80s with walking Continue steroids, nebulizer, bedtime BiPAP, oxygen support. If she does not improve will consider pulmonary evaluation Hypertension continue home meds. Hypomagnesemia: Repleted. Will monitor closely. History of heart failure with preserved ejection fraction No exacerbation, continue furosemide, diltiazem Diabetes mellitus type 2 with hyperglycemia elevated sugar r/t steroids, now improved Sliding scale, Lantus at bedtime, mealtime insulin, hold metformin. ADA diet Mental health Continue home medications Chronic opiate dependence Continue methadone Obesity. BMI 34.6 Discussed importance of weight management as this may be contributing to worsening of other comorbidities DVT prophylaxis with lovenox Full code Continued hospital stay for treatment of acute hypoxic and hypercapnic respiratory failure requiring scheduled respiratory treatments and BiPAP support at night -needs nebs, steroids, monitor of respiratory status-not improving with nebs and magnesium and steroids in the ED. Quality Stroke Does the patient have a stroke diagnosis?: No VTE Prior VTE?: No VTE Risk Level:: Medical - moderate - high VTE Device Contraindication: N/A - Device Ordered VTE Drug Contraindication: N/A - Med Ordered
[2023-02-02] MEDS: Albuterol Sulfate (0.083%) 2.5 MG/3 ML VIAL.NEB INHALE (16:06)
[2023-02-02] MEDS: hydrALAZINE HCl 25 MG TABLET PO (16:50)
[2023-02-02 16:51] LABS: Bilirubin Direct 0.1 mg/dL (0.0-0.5)
[2023-02-02] MEDS: Enoxaparin Sodium 40 MG/0.4 ML SYRINGE SUBCUT (16:51)
[2023-02-02] MEDS: 0.9 % Sodium Chloride Flush 3 ML SYRINGE IVFLUSH ×2 (16:51→21:11)
--- NOTE | 2023-02-02 16:52 | PC.NURSE ---
medicated per MAR> pt requesting food. snacks given, dinner tray pending. 94% 2L o2. tech to pt for walk, qith minimal exertion, pt de-satt to 85% PA made aware
[2023-02-02 17:10] LABS: Procalcitonin 0.03 ng/mL
[2023-02-02 17:26] LABS: Glucose, Whole Blood 365 mg/dL (60-115)
[2023-02-02] MEDS: Insulin Lispro 100 UNIT/ML 3 ML VIAL SUBCUT ×3 (17:52→21:10)
--- NOTE | 2023-02-02 17:55 | PC.NURSE ---
POC 365, MAUREEN Collier aware, ok'd 10u sliding scale w 4 u scheduled lispro, medicated per MAY.
--- NOTE | 2023-02-02 19:38 | PC.NURSE ---
report given to [facility] [place] [facility] [place], Tomás QUACH took report.
[2023-02-02] MEDS: Furosemide 40 MG/4 ML VIAL IVPUSH (19:44)
[2023-02-02] MEDS: Albuterol/Iprat 2.5/0.5MG 3 ML AMPUL.NEB INHALE ×2 (20:20→23:38)
[2023-02-02] MEDS: Budesonide 0.5 MG/2 ML AMPUL.NEB INHALE (20:21)
[2023-02-02 20:46] LABS: Glucose, Whole Blood 254 mg/dL (60-115)
[2023-02-02] MEDS: lamoTRIgine 100 MG TABLET 150 MG PO (21:06)
[2023-02-02] MEDS: Gabapentin 300 MG CAPSULE PO (21:09)
[2023-02-02] MEDS: Montelukast Sodium 10 MG TABLET PO (21:09)
[2023-02-02] MEDS: Atorvastatin Calcium 20 MG TABLET PO (21:09)
[2023-02-02] MEDS: methylPREDNISolone Sod Succ 40 MG/ML VIAL IVPUSH (21:09)
[2023-02-02] MEDS: Insulin Glargine,Hum.rec.anlog 100 UNIT/ML 10 ML VIAL 30 UNIT SUBCUT (21:10)
[2023-02-03] VITALS (15 sets, daily range): BP systolic 120–189; BP diastolic 64–99; PULSE 99–110; RESP 18–24; TEMP 36.1–36.5; O2SAT 92–99
[2023-02-03] MEDS: Albuterol/Iprat 2.5/0.5MG 3 ML AMPUL.NEB INHALE ×5 (04:12→20:00)
[2023-02-03] MEDS: Omeprazole 40 MG CAPSULE.DR PO (05:43)
--- NOTE | 2023-02-03 06:51 | PHA.MEDREC ---
Pharmacy Consult ? Medication Reconciliation Pharmacy has completed the medication reconciliation.MED REC PREVIOUSLY COMPLETE BY CHAVEZ
[2023-02-03 07:25] LABS: Glucose, Whole Blood 262 mg/dL (60-115)
[2023-02-03 07:53] LABS: Magnesium 1.8 mg/dL (1.6-2.6)
[2023-02-03] MEDS: Furosemide 40 MG/4 ML VIAL IVPUSH (08:04)
[2023-02-03] MEDS: methylPREDNISolone Sod Succ 40 MG/ML VIAL IVPUSH ×2 (08:04→17:08)
[2023-02-03] MEDS: Insulin Lispro 100 UNIT/ML 3 ML VIAL SUBCUT ×7 (08:04→21:49)
[2023-02-03] MEDS: lamoTRIgine 100 MG TABLET 150 MG PO ×2 (08:05→21:48)
[2023-02-03] MEDS: Lidocaine 4 % Patch ADH..PATCH 1 PATCH TRANSDERMA (08:05)
[2023-02-03] MEDS: Roflumilast 500 MCG TABLET PO (08:05)
[2023-02-03] MEDS: buPROPion HCL 100 MG TABLET PO (08:05)
[2023-02-03] MEDS: lisinopriL 10 MG TABLET PO (08:05)
[2023-02-03] MEDS: hydrALAZINE HCl 25 MG TABLET PO ×3 (08:05→17:07)
[2023-02-03] MEDS: Gabapentin 300 MG CAPSULE PO ×2 (08:05→21:48)
[2023-02-03] MEDS: Folic Acid 1 MG TABLET PO (08:05)
[2023-02-03] MEDS: Loratadine 10 MG TABLET PO (08:05)
[2023-02-03] MEDS: dilTIAZem HCL CD 180 MG CAP.ER.24H 360 MG PO (08:05)
[2023-02-03] MEDS: 0.9 % Sodium Chloride Flush 3 ML SYRINGE IVFLUSH ×3 (08:06→21:49)
[2023-02-03] MEDS: Salmeterol Xinafoate 50 MCG BLST.W.DEV 1 PUFF INHALE ×2 (08:07→20:00)
[2023-02-03] MEDS: Tiotropium Bromide 2.5 mcg 1 PUFF/2.5 MCG MIST.INHAL 2 PUFF INHALE (08:07)
[2023-02-03] MEDS: Ammonium Lactate 12 % Lotion 226 GM BOTTLE 1 APPL TOPICAL (08:12)
[2023-02-03] MEDS: Calcitonin,Salmon,Synth Nasal 3.7 ML BOTTLE 1 SPRAY NOSTRIL-B (08:12)
[2023-02-03] MEDS: Budesonide 0.5 MG/2 ML AMPUL.NEB INHALE ×2 (08:13→20:00)
[2023-02-03] MEDS: LORazepam 2 MG/ML VIAL 0.5 MG IVPUSH (11:10)
[2023-02-03 11:20] LABS: Glucose, Whole Blood 203 mg/dL (60-115)
--- NOTE | 2023-02-03 11:54 | HE.PHANOTE ---
METHADONE CONFIRMATION FORM LAST DOSE 50MG 02/02 FOR 50MG
--- NOTE | 2023-02-03 13:24 | HO.PM.IMPN ---
Subjective Subjective Date of Service: 02/03/23 Interval History: copd Review of Systems sob with minimum excersion,anxious no fever or chills Physical Exam Vital Signs: Vital Signs: Last Vital Signs Temp 97.4 F 02/03/23 11:10 Pulse 101 H 02/03/23 11:52 Resp 20 02/03/23 11:52 BP 120/75 02/03/23 11:10 Pulse Ox 98 02/03/23 11:10 O2 Del Method Nasal Cannula 02/03/23 11:10 O2 Flow Rate 2 02/03/23 11:10 FiO2 28 02/03/23 07:14 BMI result Body Mass Index 40.2 Appearance: Alert.? Oriented X3.?sob Eyes: Pupils equal, round and reactive to light.? Sclera nonicteric.? ENT: Pharynx normal.? Moist mucous membranes. cvs: rrr, [id number] . res: cair entry dimished ,faint wheezing b/l. abd: no rebound or guarding ,nt, bs present. ext pulses present , no cyanosis . neuro: axo3 , nonfocal. Objective Data Active Medications Albuterol Sulfate (Albuterol Sulfate 90 Mcg 8 Gm Inhaler) 2 puff INHALE Q4H PRN PRN Reason: Shortness Of Breath Or Wheezing Albuterol/Ipratropium (Albuterol/Iprat 2.5/0.5mg 3 Ml Ampul.Neb) 3 ml INHALE Q4H [facility] Last Admin: 02/03/23 11:50 Dose: 3 ml Documented By: WILLIAM Albuterol/Ipratropium (Albuterol/Iprat 2.5/0.5mg 3 Ml Ampul.Neb) 3 ml INHALE Q3H PRN PRN Reason: sob Atorvastatin Calcium (Atorvastatin Calcium 20 Mg Tablet) 20 mg PO BEDTIME [facility] Last Admin: 02/02/23 21:09 Dose: 20 mg Documented By: COLETTE Azathioprine (Azathioprine 50 Mg Tablet) 50 mg PO DAILY [facility] Last Admin: 02/03/23 10:16 Dose: Not Given Documented By: TAMIE Non-Admin Reason: waiting for pharmacy to bring medication Budesonide (Budesonide 0.5 Mg/2 Ml Ampul.Neb) 0.5 mg INHALE RBID [facility] Last Admin: 02/03/23 08:13 Dose: 0.5 mg Documented By: WILLIAM Bupropion HCl (Bupropion Hcl 100 Mg Tablet) 100 mg PO DAILY [facility] Last Admin: 02/03/23 08:05 Dose: 100 mg Documented By: TAMIE Calcitonin Lakeside (Calcitonin,[place],Synth Nasal 3.7 Ml Bottle) 1 spray NOSTRIL-B DAILY [facility] Last Admin: 02/03/23 08:12 Dose: 1 spray Documented By: TAMIE Clonazepam (Clonazepam 1 Mg Tablet) 1 mg PO BID PRN PRN Reason: Anxiety Dextrose (Dextrose 50 % 25 Gm/50 Ml Syringe) 25 gm IVPUSH Q15M PRN; Protocol PRN Reason: per Hypoglycemia Standing Ord. Diclofenac Sodium (Diclofenac Sodium Delayed Rel 50 Mg Tablet.Dr) 50 mg PO TID PRN PRN Reason: Pain Diltiazem HCl (Diltiazem Hcl Cd 180 Mg Cap.Er.24h) 360 mg PO DAILY [facility]; Protocol Last Admin: 02/03/23 08:05 Dose: 360 mg Documented By: TAMIE Docusate Sodium (Docusate Sodium 100 Mg Capsule) 100 mg PO BID PRN PRN Reason: constipation Enoxaparin Sodium (Enoxaparin Sodium 40 Mg/0.4 Ml Syringe) 40 mg SUBCUT Q24H [facility] Last Admin: 02/02/23 16:51 Dose: 40 mg Documented By: CLIFTON Folic Acid (Folic Acid 1 Mg Tablet) 1 mg PO DAILY [facility] Last Admin: 02/03/23 08:05 Dose: 1 mg Documented By: TAMIE Furosemide (Furosemide 40 Mg Tablet) 40 mg PO DAILY [facility]; Protocol Gabapentin (Gabapentin 300 Mg Capsule) 300 mg PO BID [facility] Last Admin: 02/03/23 08:05 Dose: 300 mg Documented By: TAMIE Glucose (Glucose Gel 15 Gm Gel..Gram.) 15 gm PO Q15M PRN; Protocol PRN Reason: per Hypoglycemia Standing Ord. Hydralazine HCl (Hydralazine Hcl 25 Mg Tablet) 25 mg PO TIDWM [facility]; Protocol Last Admin: 02/03/23 11:35 Dose: 25 mg Documented By: TAMIE Insulin Glargine (Insulin Glargine,Hum.Rec.Anlog 100 Unit/Ml 10 Ml Vial) 30 unit SUBCUT BEDTIME [facility] Last Admin: 02/02/23 21:10 Dose: 30 unit Documented By: COLETTE Insulin Human Lispro (Insulin Lispro 100 Unit/Ml 3 Ml Vial) 4 unit SUBCUT TIDAC [facility] Last Admin: 02/03/23 11:35 Dose: 4 unit Documented By: TAMIE Insulin Human Lispro (Insulin Lispro 100 Unit/Ml 3 Ml Vial) 0 unit SUBCUT QIDACHS [facility]; Protocol Last Admin: 02/03/23 11:35 Dose: 4 unit Documented By: TAMIE Lactic Acid (Ammonium Lactate 12 % Lotion 226 Gm Bottle) 1 appl TOPICAL DAILY PRN; Protocol PRN Reason: Rash Last Admin: 02/03/23 08:12 Dose: 1 appl Documented By: TAMIE Lamotrigine (Lamotrigine 100 Mg Tablet) 150 mg PO BID [facility] Last Admin: 02/03/23 08:05 Dose: 150 mg Documented By: TAMIE Lidocaine (Lidocaine 4 % Patch Adh..Patch) 1 patch TRANSDERMA DAILY [facility] Last Admin: 02/03/23 08:05 Dose: 1 patch Documented By: TAMIE Lisinopril (Lisinopril 10 Mg Tablet) 10 mg PO DAILY [facility]; Protocol Last Admin: 02/03/23 08:05 Dose: 10 mg Documented By: TAMIE Loratadine (Loratadine 10 Mg Tablet) 10 mg PO DAILY [facility] Last Admin: 02/03/23 08:05 Dose: 10 mg Documented By: TAMIE Methadone HCl (Methadone Hcl 20 Mg/2 Ml Oral.Conc) 50 mg PO DAILY [facility] Methylprednisolone Sodium Succinate (Methylprednisolone Sod Succ 40 Mg/Ml Vial) 40 mg IVPUSH TID [facility] Last Admin: 02/03/23 08:04 Dose: 40 mg Documented By: TAMIE Montelukast Sodium (Montelukast Sodium 10 Mg Tablet) 10 mg PO BEDTIME [facility] Last Admin: 02/02/23 21:09 Dose: 10 mg Documented By: COLETTE Non-Formulary Medication (Cholecalciferol (Vitamin D3)) 1,250 mcg PO WE@0900 [facility] Non-Formulary Medication (Sodium Chloride) 4 ml INHALE BID [facility] Omeprazole (Omeprazole 40 Mg Capsule.Dr) 40 mg PO DAILY@0630 [facility] Last Admin: 02/03/23 05:43 Dose: 40 mg Documented By: COLETTE Polyethylene Glycol (Polyethylene Glycol 3350 17 Gm Powd.Pack) 17 gm PO DAILY [facility] Last Admin: 02/03/23 08:13 Dose: Not Given Documented By: TAMIE Non-Admin Reason: Patient Refused Roflumilast (Roflumilast 500 Mcg Tablet) 500 mcg PO DAILY [facility] Last Admin: 02/03/23 08:05 Dose: 500 mcg Documented By: TAMIE Salmeterol Xinafoate (Salmeterol Xinafoate 50 Mcg Blst.W.Dev) 1 puff INHALE RBID [facility] Last Admin: 02/03/23 08:07 Dose: 1 puff Documented By: WILLIAM Simethicone (Simethicone 80 Mg Tab.Chew) 80 mg PO QIDWMHS PRN PRN Reason: Abdominal Distention Sodium Chloride (0.9 % Sodium Chloride Flush 3 Ml Syringe) 3 ml IVFLUSH QSHIFT [facility] Last Admin: 02/03/23 08:06 Dose: 3 ml Documented By: TAMIE Tiotropium Bandy (Tiotropium Bandy 2.5 Mcg 1 Puff/2.5 Mcg Mist.Inhal) 2 puff INHALE RDAILY [facility] Last Admin: 02/03/23 08:07 Dose: 2 puff Documented By: WILLIAM Voriconazole (Voriconazole 200 Mg Tablet) 200 mg PO BID [facility] Last Admin: 02/03/23 08:05 Dose: 200 mg Documented By: TAMIE Zolpidem Tartrate (Zolpidem Tartrate 5 Mg Tablet) 5 mg PO BEDTIME PRN PRN Reason: Sleep Labs 02/02/23 10:10 02/02/23 10:10 Labs: Laboratory Results - last 24 hr 02/02/23 02/02/23 02/02/23 10:10 17:22 20:38 Hold Purple Top POC Glucose 365 H* 254 H Magnesium Direct Bilirubin 0.1 Procalcitonin 0.03 Influenza Type A (PCR) NEGATIVE Influenza Type B (PCR) NEGATIVE RSV RNA Qual (PCR) NEGATIVE SARS-CoV-2 RNA (RT-PCR) NEGATIVE 02/03/23 02/03/23 02/03/23 06:06 07:19 11:13 Hold Purple Top SEE NOTE POC Glucose 262 H 203 H Magnesium 1.8 Direct Bilirubin Procalcitonin Influenza Type A (PCR) Influenza Type B (PCR) RSV RNA Qual (PCR) SARS-CoV-2 RNA (RT-PCR) Assessment and Plan (1) Hypoxia: Status: Acute (2) Chronic lung disease: Status: Acute Plan 52-year-old woman with history of chronic respiratory failure, hypercarbic respiratory failure with COPD and asthma overlap admitted to the ICU for acute respiratory failure. Acute on chronic hypoxic, hypercarbic respiratory failure secondary to COPD/asthma overlap syndrome. leucocytosis better than last admission( possible sec to steriods use) ,cxr fine sob with minimum excersion,has wheezing ,anxious Continue steroids, nebulizer, bedtime BiPAP, oxygen support,added dose of ativan. If she does not improve will consider pulmonary evaluation Hypertension continue home meds. Hypomagnesemia: Repleted. Will monitor closely. History of heart failure with preserved ejection fraction No exacerbation, continue furosemide, diltiazem Diabetes mellitus type 2 with hyperglycemia elevated sugar r/t steroids, now improved Sliding scale, Lantus at bedtime, mealtime insulin, hold metformin. ADA diet Mental health Continue home medications Chronic opiate dependence Continue methadone Obesity. BMI 34.6 Discussed importance of weight management as this may be contributing to worsening of other comorbidities DVT prophylaxis with lovenox Full code ongoing hospital stay for treatment of acute hypoxic and hypercapnic respiratory failure requiring scheduled respiratory treatments and BiPAP support at night -needs nebs, steroids, monitor of respiratory status which is not improving yet, might need 48-72 hr stay. Quality Stroke Does the patient have a stroke diagnosis?: No VTE Prior VTE?: No VTE Risk Level:: Medical - moderate - high VTE Device Contraindication: N/A - Device Ordered VTE Drug Contraindication: N/A - Med Ordered
[2023-02-03] MEDS: methADONE HCl 20 MG/2 ML ORAL.CONC 50 MG PO (13:51)
--- NOTE | 2023-02-03 14:59 | MHC.CM.PN ---
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 PT REPORTS GOAL FOR DC IS HOME W/SERVICES. PT VERIFIES PCP IS FILOMENA HERNANDEZ, DENIES RECEIVING ANY VACCINES FOR COVID 19 AND HAS BEEN EDUCATED AND WILL CONSIDER COMPLETING A HCP, PT REPORTS SHE WOULD NOT WANT THAT TO BE HER DTR [employer] AND WILL CONSIDER IT.
[2023-02-03 16:10] LABS: Glucose, Whole Blood 329 mg/dL (60-115)
[2023-02-03] MEDS: Enoxaparin Sodium 40 MG/0.4 ML SYRINGE SUBCUT (17:06)
[2023-02-03 20:58] LABS: Glucose, Whole Blood 274 mg/dL (60-115)
[2023-02-03] MEDS: Atorvastatin Calcium 20 MG TABLET PO (21:48)
[2023-02-03] MEDS: Montelukast Sodium 10 MG TABLET PO (21:48)
[2023-02-03] MEDS: Insulin Glargine,Hum.rec.anlog 100 UNIT/ML 10 ML VIAL 30 UNIT SUBCUT (21:49)
[2023-02-03] MEDS: predniSONE 20 MG TABLET 40 MG PO (23:46)
[2023-02-03] MEDS: clonazePAM 1 MG TABLET PO (23:49)
[2023-02-04] VITALS (13 sets, daily range): BP systolic 111–143; BP diastolic 61–77; PULSE 86–132; RESP 16–24; TEMP 36–37.1; O2SAT 91–97
[2023-02-04] MEDS: Albuterol/Iprat 2.5/0.5MG 3 ML AMPUL.NEB INHALE ×5 (00:02→18:49)
[2023-02-04] MEDS: Omeprazole 40 MG CAPSULE.DR PO (06:24)
[2023-02-04 07:41] LABS: Glucose, Whole Blood 301 mg/dL (60-115)
[2023-02-04] MEDS: Budesonide 0.5 MG/2 ML AMPUL.NEB INHALE ×2 (08:24→18:48)
[2023-02-04] MEDS: Salmeterol Xinafoate 50 MCG BLST.W.DEV 1 PUFF INHALE ×2 (08:32→18:49)
[2023-02-04] MEDS: Tiotropium Bromide 2.5 mcg 1 PUFF/2.5 MCG MIST.INHAL 2 PUFF INHALE (08:32)
[2023-02-04] MEDS: methADONE HCl 20 MG/2 ML ORAL.CONC 50 MG PO (08:58)
[2023-02-04] MEDS: Calcitonin,Salmon,Synth Nasal 3.7 ML BOTTLE 1 SPRAY NOSTRIL-B (08:58)
[2023-02-04] MEDS: Lidocaine 4 % Patch ADH..PATCH 1 PATCH TRANSDERMA (09:00)
[2023-02-04] MEDS: Insulin Lispro 100 UNIT/ML 3 ML VIAL SUBCUT ×5 (09:00→22:23)
[2023-02-04] MEDS: Roflumilast 500 MCG TABLET PO (09:02)
[2023-02-04] MEDS: lisinopriL 10 MG TABLET PO (09:02)
[2023-02-04] MEDS: Gabapentin 300 MG CAPSULE PO ×2 (09:02→20:44)
[2023-02-04] MEDS: lamoTRIgine 100 MG TABLET 150 MG PO ×2 (09:02→20:44)
[2023-02-04] MEDS: Furosemide 40 MG TABLET PO (09:02)
[2023-02-04] MEDS: Loratadine 10 MG TABLET PO (09:03)
[2023-02-04] MEDS: hydrALAZINE HCl 25 MG TABLET PO ×3 (09:03→17:12)
[2023-02-04] MEDS: Folic Acid 1 MG TABLET PO (09:03)
[2023-02-04] MEDS: buPROPion HCL 100 MG TABLET PO (09:03)
[2023-02-04] MEDS: dilTIAZem HCL CD 180 MG CAP.ER.24H 360 MG PO (09:03)
[2023-02-04] MEDS: azaTHIOprine 50 MG TABLET PO (11:17)
--- NOTE | 2023-02-04 11:23 | HO.WOUND ---
Wound Consult: Initial 52yr old female admitted to [facility] [place] on? 02/02/23 15:39 - See progress notes and H&P for detailed history. Notified by Respiratory Therapist for evaluation given frequent use of devices over the bridge of nose and face. Arrival to bedside pt was agreeable to consult and assessment. Direct care steam cleaner provided Georgian Interpretation throughout assessment. Scar tissue noted to the bridge of the patients nose and reported tenderness. Pt reports previous open injury to the bridge of the nose in the recent past - she reports she had to treat with cleansing and cover dressings - she reports she did not go to the wound clinic. The tissue currently remains intact and blanchable. Recommend off loading pressure and protecting from friction under devices with use of foam dressings cut to size at the bridge of the nose and bilateral cheek bones. Discussed with patient the need to follow device guideline for use- meaning when she receives a new face mask from her insurance to switch to use as the devices cushions are only rated for approximately 30day use - she reports understanding. Re-consult wound care Nurse for wound deterioration or wound changes.
[2023-02-04 11:39] LABS: Glucose, Whole Blood 180 mg/dL (60-115)
--- NOTE | 2023-02-04 13:28 | P.DS_ITS ---
DS: Providers Provider Date of Service: 02/05/23 Date of admission: 02/02/23 15:39 Primary care physician: Kelli Benavides MD DS: Diagnosis Discharge Diagnosis (1) Hypoxia: Status: Acute (2) Chronic lung disease: Status: Acute DS: Summary Hospital Course Hospital Course: Chief Complaint: hypoxia 52-year-old woman with a past medical history of asthma COPD overlap syndrome, chronic? hypercarbic and hypoxic respiratory failure currently on 3l via [place] home oxygen, on chronic steroids,? diabetes mellitus, hypertension, hyperlipidemia, tobacco use, and Hypogammaglobulinemia on IVIG,? opioid dependence on methadone who presented to emergency department [facility] with sob -patient is having short of breath and wheezing which was slowly getting worse as per the patient so she decided to come to the hospital. Discussed with the ED patient had multiple nebulizer treatment, steroid, magnesium but not significant relief-her sats at rest are in 90s but with minimal activity goes down into 80s as per ED. so admission is given for acute hypoxemic respiratory failure secondary to COPD. Patient still short of breath with talking but says that it it is somewhat improved since she came, gets more short of breath with activity. Denies any new complaint of chest pain or abdominal pain or fever or chills or nausea or vomiting Denies dry cough Denies any weakness or numbness. Lab imaging EKG reviewed: wbc: 12.4 h/h 11.4/37.4 platlets : 261. BMp: Seems fine, magnesium is 1.5. VB.45 /69/149. trop negx1 , bnp 14. XR/XR chest 1V IMPRESSION: * Mild vascular congestion. * Very subtle increased interstitial marking, cannot rule out mild interstitial edema or interstitial pneumonitis. * No significant pleural effusion. Patient received nebs, magnesium, steroids in the ED with some effect. Hospital couse: Patient was admitted for acute on chornic hypoxic respiratory failure due to copd/asthma overlap with acute exacerbation. Her management consisted of IV steroid, bronchodilators by Nebs, Oxygen and bipap as needed. Her condition has improved over the course of hospitalization, she is back to her baseline and feels comfortable going home. She will be prescribed some pre dnisone and advised to staty away from smoking. Time Attestation Discharge coordination time: Greater than 30 minutes Quality: Safe Use of Opioids Does Pt have an Active Cancer Diagnosis on the Problem List?: No Quality: Stroke Does the patient have a stroke diagnosis?: No Physical Exam Vital Signs: Vital Signs: Selected Entries 02/05/23 08:00 Temperature 97.6 F Pulse Rate 91 Respiratory Rate 18 Blood Pressure 139/77 Pulse Oximetry 100 Const: Other: General: AO X 3, no acute distress Resp: CTA bilateral, no wheezes, no accessory muslce use, speaks in full sentences CVS: S1,S2,RRR GI: +BS, NT, no distention Skin: No rash Neuro: motor grossly intact Psych: appropriate affect DS: Data Data Completed and Pending Labs on day of discharge: Laboratory Results - last 24 hr 02/03/23 02/03/23 02/04/23 15:03 20:50 07:33 POC Glucose 329 H 274 H 301 H 02/04/23 11:09 POC Glucose 180 H Discharge Plan Discharge Anticipated Discharge Date/Time: 02/05/23 10:14 Patient Disposition: Home, Self-Care Discharge Diagnosis: acute on chronic hypoxic respiratory failure due to COPD exacerbation. Referrals: Kelli Benavides MD [Primary Care Provider] - 1 Week Discharge Medications: New prednisone 10 mg tablet See Taper PO DIRECTED Qty: 20 0RF Taper: Prednisone 40 mg daily for 3 Days and 0 Hour 30 mg daily for 3 Days and 0 Hour 20 mg daily for 3 Days and 0 Hour 10 mg daily for 3 Days and 0 Hour Rx Instructions: see taper instructions Continued Brovana 15 mcg/2 mL solution for nebulization 2 ml inhalation Q12H 30 Days Qty: 120 11RF Spiriva with HandiHaler 18 mcg capsule, w/inhalation device 1 cap inhalation DAILY Qty: 30 11RF budesonide 0.5 mg/2 mL suspension for nebulization 0.5 mg inhalation BID Qty: 120 11RF ipratropium-albuterol 0.5 mg-3 mg(2.5 mg base)/3 mL solution for nebulization 3 ml PO Q4H PRN (Reason: for wheezing) Qty: 540 6RF sodium chloride 7 % solution for nebulization 4 ml inhalation BID Qty: 240 11RF omeprazole 40 mg capsule,delayed release(DR/EC) 40 mg PO DAILY@0630 30 Days Qty: 30 6RF gabapentin 300 mg capsule 300 mg PO BID Qty: 60 11RF diltiazem HCl [Tiadylt ER] 360 mg capsule,extended release 24 hr 360 mg PO DAILY rosuvastatin 5 mg tablet 5 mg PO BEDTIME roflumilast [Daliresp] 500 mcg tablet 500 mcg PO DAILY metformin 500 mg tablet extended release 24 hr 1,000 mg PO BID hydralazine 25 mg tablet 25 mg PO TIDWM insulin lispro 100 unit/mL solution 4 unit subcut TIDAC methadone 10 mg/mL Concentrate 50 mg PO DAILY Patient Comments: [facility] PIC[facility] UP AND ADMINISTERS simethicone [Gas Relief (simethicone)] 80 mg Tablet,Chewable 80 mg PO QIDWMHS PRN (Reason: Abdominal Distention) Qty: 30 0RF lamotrigine 150 mg tablet 150 mg PO BID alendronate 70 mg tablet 70 mg PO QWEEK lidocaine 5 % adhesive patch,medicated 1 patch topical DAILY Rx Instructions: APPLY FOR 12 HOURS THEN REMOVE FOR 12 HOURS cholecalciferol (vitamin D3) 1,250 mcg (50,000 unit) capsule 1,250 mcg PO WE@0900 calcitonin (salmon) 200 unit/actuation spray,non-aerosol 1 spray intranasal DAILY Rx Instructions: one nostril every day, alternate sides. insulin glargine [Lantus U-100 Insulin] 100 unit/mL solution 35 unit subcut BEDTIME docusate sodium 100 mg capsule 100 mg PO BID PRN (Reason: constipation) zolpidem 5 mg tablet 5 mg PO BEDTIME PRN (Reason: Sleep) clonazepam 1 mg tablet 1 mg PO BID PRN (Reason: Anxiety) ibuprofen 600 mg tablet 600 mg PO Q8H PRN (Reason: Pain) bupropion HCl 100 mg tablet 100 mg PO DAILY Serevent Diskus 50 mcg/dose blister with device 1 inh INHALATION BID polyethylene glycol 3350 [Miralax] 17 gram/dose powder 17 g PO DAILY diclofenac potassium 50 mg Tablet 50 mg PO TID PRN (Reason: Pain) lisinopril 10 mg Tablet 10 mg PO DAILY 30 Days Qty: 30 0RF Protocol: Hold for SBP< HOLD for SBP < : 90 ammonium lactate 12 % lotion 1 appl topical DAILY PRN (Reason: Rash) azathioprine [Imuran] 50 mg tablet 50 mg PO DAILY furosemide [Lasix] 20 mg tablet 40 mg PO DAILY montelukast 10 mg tablet 10 mg PO BEDTIME albuterol sulfate [ProAir HFA] 90 mcg/actuation HFA aerosol inhaler 2 puff inhalation Q4H PRN (Reason: Shortness Of Breath Or Wheezing) loratadine [Claritin] 10 mg tablet 10 mg PO DAILY (DME) nebulizers Misc See Rx Instructions .ROUTE Rx Instructions: As directed voriconazole 200 mg tablet 200 mg PO Q12H 30 Days Qty: 60 1RF Rx Instructions: administer on empty stomach, at least 1 hour before or after meal(s) folic acid 1 mg tablet 1 mg PO DAILY 30 Days Qty: 30 6RF Discharge Orders: Discharge Order (Routine); Ordered 02/05/23 Ordered By: Joao Meehan Diet: Diabetic diet Activity on Discharge: As tolerated Stand Alone Forms: Patient Portal Discharge page Care Plan Goals: Full recovery from exacerbation of COPD Health Concerns: acute on chronic respiratory failure due to COPD with asthma overlap syndrome Plan of Treatment: continue take using inhalers as directed and take prednisone as directed, follow-up with your doctor within a week call for appointment. stay away from smoking Assessment: see above
[2023-02-04 16:23] LABS: Glucose, Whole Blood 105 mg/dL (60-115)
[2023-02-04] MEDS: Enoxaparin Sodium 40 MG/0.4 ML SYRINGE SUBCUT (17:11)
[2023-02-04] MEDS: predniSONE 20 MG TABLET 40 MG PO (18:38)
[2023-02-04 20:42] LABS: Glucose, Whole Blood 180 mg/dL (60-115)
[2023-02-04] MEDS: Atorvastatin Calcium 20 MG TABLET PO (20:43)
[2023-02-04] MEDS: Montelukast Sodium 10 MG TABLET PO (20:43)
[2023-02-04] MEDS: Insulin Glargine,Hum.rec.anlog 100 UNIT/ML 10 ML VIAL 30 UNIT SUBCUT (20:47)
[2023-02-05] VITALS (9 sets, daily range): BP systolic 131–139; BP diastolic 60–77; PULSE 84–112; RESP 17–24; TEMP 36.1–36.4; O2SAT 93–100
[2023-02-05] MEDS: Albuterol/Iprat 2.5/0.5MG 3 ML AMPUL.NEB INHALE ×4 (00:27→11:08)
[2023-02-05] MEDS: 0.9 % Sodium Chloride Flush 3 ML SYRINGE IVFLUSH (01:50)
[2023-02-05] MEDS: Omeprazole 40 MG CAPSULE.DR PO (04:53)
[2023-02-05 07:53] LABS: Glucose, Whole Blood 248 mg/dL (60-115)
[2023-02-05] MEDS: Salmeterol Xinafoate 50 MCG BLST.W.DEV 1 PUFF INHALE (08:10)
[2023-02-05] MEDS: Budesonide 0.5 MG/2 ML AMPUL.NEB INHALE (08:10)
[2023-02-05] MEDS: Tiotropium Bromide 2.5 mcg 1 PUFF/2.5 MCG MIST.INHAL 2 PUFF INHALE (08:10)
[2023-02-05] MEDS: Lidocaine 4 % Patch ADH..PATCH 1 PATCH TRANSDERMA (08:20)
[2023-02-05] MEDS: azaTHIOprine 50 MG TABLET PO (08:20)
[2023-02-05] MEDS: methADONE HCl 20 MG/2 ML ORAL.CONC 50 MG PO (08:20)
[2023-02-05] MEDS: Insulin Lispro 100 UNIT/ML 3 ML VIAL SUBCUT ×2 (08:21)
[2023-02-05] MEDS: Loratadine 10 MG TABLET PO (08:21)
[2023-02-05] MEDS: lamoTRIgine 100 MG TABLET 150 MG PO (08:21)
[2023-02-05] MEDS: dilTIAZem HCL CD 180 MG CAP.ER.24H 360 MG PO (08:22)
[2023-02-05] MEDS: predniSONE 20 MG TABLET 40 MG PO (08:22)
[2023-02-05] MEDS: hydrALAZINE HCl 25 MG TABLET PO ×2 (08:22→12:31)
[2023-02-05] MEDS: Gabapentin 300 MG CAPSULE PO (08:22)
[2023-02-05] MEDS: Folic Acid 1 MG TABLET PO (08:22)
[2023-02-05] MEDS: Roflumilast 500 MCG TABLET PO (08:22)
[2023-02-05] MEDS: Furosemide 40 MG TABLET PO (08:22)
[2023-02-05] MEDS: lisinopriL 10 MG TABLET PO (08:22)
[2023-02-05 11:10] LABS: Glucose, Whole Blood 141 mg/dL (60-115)
--- NOTE | 2023-02-05 11:47 | MHC.CM.PN ---
Pt has been medically cleared for DC. She is going home via private transport, DC summary and last dose letter for Methadone was faxed to [facility] home care nurse Maggie at [phone].
== END 2023-02-05 13:06 | disposition home or self-care (01) | DRG 140 ==
LOC: HO.ED 14:59 → HO.EDOVER 15:44 → HO.IMC 19:24
PROVIDERS: Physician Assistant; Admitting Provider Internal Medicine; Emergency Provider Emergency Medicine; PCP Family Medicine; Visit Provider Internal Medicine
DX: J44.1 Chronic obstructive pulmonary disease with (acute) exacerbation (principal); J96.21 Acute and chronic respiratory failure with hypoxia; D80.1 Nonfamilial hypogammaglobulinemia; I50.32 Chronic diastolic (congestive) heart failure; E66.2 Morbid (severe) obesity with alveolar hypoventilation; Z68.41 Body mass index [BMI] 40.0-44.9, adult; J96.22 Acute and chronic respiratory failure with hypercapnia; E83.42 Hypomagnesemia; E11.65 Type 2 diabetes mellitus with hyperglycemia; F11.20 Opioid dependence, uncomplicated; Z20.822 Contact with and (suspected) exposure to COVID-19; Z87.891 Personal history of nicotine dependence; Z79.52 Long term (current) use of systemic steroids; Z79.84 Long term (current) use of oral hypoglycemic drugs; Z79.620 Long term (current) use of immunosuppressive biologic; Z79.899 Other long term (current) drug therapy
CPT/HCPCS: 0241U; 36415; 71045; 80053; 82248; 82803; 82947; 83735; 83880; 84145; 84484; 85025; 85610; 93005; 94660; 99285; J1650; J1940; J2060; J2920; J2930; J3475

== ENCOUNTER → 2023-02-02 15:39 | Outpatient (BNV) | payer MEDICAID, SELFPAY | PROVIDERS: Admitting Provider Internal Medicine; Emergency Provider Emergency Medicine; Visit Provider Internal Medicine | DX: J96.21 Acute and chronic respiratory failure with hypoxia (principal); J96.22 Acute and chronic respiratory failure with hypercapnia | CPT/HCPCS: 99222; 99232; 99239 ==

== ENCOUNTER 2023-02-20 09:05 | Outpatient (AMB) | payer MEDICAID, SELFPAY ==
[2023-02-20 10:26] VITALS: PULSE 89; O2SAT 92; BMI 35.0
--- NOTE | 2023-02-20 10:26 | A.OFFVIS_ITS ---
Intake Vital Signs 02/20/23 10:26 Height 5 ft 1 in Weight 185 lb BMI 35.0 Pulse 89 Pulse Source Pulse Oximeter Pulse Oximetry (%) 92 Oxygen Delivery Method Room Air Comment 3 Liters Oxygen([facility]) Intake Visit Reasons: Shortness of Breath Allergies No Known Allergies [No Known Allergies*] Allergy (Verified 02/20/23 10:28) HPI HPI Comments History of Present Illness Details The patient is a 53-year-old woman with a known history of asthma COPD overlap syndrome, chronic hypercarbic and hypoxic respiratory failure currently on oxygen and also on a noninvasive ventilator. She has been on high doses of prednisone currently on chronic steroids for ongoing respiratory issue s. Recently she was placed on a prednisone taper. She is down to 30 mg at this time. She does respond well to noninvasive ventilator which she uses at nighttime and also as needed. Today she appears to be more dyspneic in appearance. It was apparent that her pulse ox was stable at 97% on her current oxygen however she was significantly tachycardic up to the 130s. I did offer her to get x-rays labs in an EKG today but, the patient opted on getting the tomorrow. I explained to her her symptoms worsen she is to go to the ER to be evaluated. We also talked about her respiratory failure where appears to be getting worse. The patient benefits from a wheelchair to help her with transportation and her appointments. She also may benefit from a sip and puff device as an accessory to noninvasive ventilator which she could potentially use it outside of the home for her progressive respiratory failure. She has been taking theophylline. Had planned to increase her theophylline. however, with the increased heart rate will hold off at this time. herABG from May 2019 demonstrated a pH 7.44 with a pCO2 of 69. Her bicarb also has been elevated at 41. Once we optimize her respiratory therapy with noninvasive ventilator will recheck her blood gas. In the meantime will check a theophylline level and also increase her theophylline level accordingly. Patient did develop worsening respiratory symptoms approximately 3-4 weeks ago. Therefore we will have her get checked for the SARS CoV 2 IgG antibodies. Unfortunately, the patient continues to smoke. We did talk about smoking cessation. Her is going to try to quit and once he quits he is not going to provide her with anymore cigarettes which should be very effective and helping her quit smoking. 12/19/2022 the patient is here for pulmon kota follow-up visit. He is in the hospital. She has been complaining of a right lower extremity pain. She had another Doppler which was negative for DVT. Her legs indeed swollen and somewhat erythematous. She is also having pain in the bottom referred. Breathing flowers she is still having hard time breathing. She is trying to use her noninvasive ventilator during the daytime. Her blood gases overall have been reassuring although her CO2 continues to climb slowly. Her bicarb is also elevated. Therefore will try some Diamox to see we can decrease the bicarb in order to be able to be released at additional CO2. If she tolerates the use of Diamox for 3 days we can also consider adding in the small dose 3 times a week. Will readdress that with repeat blood work in a venous gas in 2 weeks and then will have her see follow-up in 3 weeks. She also ended up getting the sip and puff device although she has not been able to use it because the pressures are too high. Will have to further adjust the pressures according. Since she left the hospital she has been on 40 mg of prednisone. Just yesterday she dropped down to 30 mg because she should really be at a baseline of 20 mg. She will then taper down weeks time to 25 and then again to 20 mg. We will increase her azathioprine that she is taking in order to try to minimize her steroid use and she can increase that to 100 mg. She is taking folate and will add biotin because she will have further hair loss. Unfortunately, even with all these issues the patient continues to smoke cigarettes. She understands that all this medications will being vain if she continues to smoke cigarettes worsening overall health. 01/14/2023 the patient is here for allison nuno follow-up visit. She has been having hard time with the breathing. She is been getting worse. She called initially last week because of the worsening respiratory symptoms. She had blood work done demonstrating chronic hypercarbic respiratory failure and hypoxia with a normal pH which is reassuring. She continues use her noninvasive ventilator at nighttime and also during the daytime. She was started on a prednisone taper and also given a course of levofloxacin for her worsening cough and chest congestion. Was also noted that during the hospitalizations her microbiology was positive for Aspergillus. The patient has been on i mmunomodulator therapies and also cortical steroids therefore significantly immunocompromised. Therefore, it is reasonable to treat the Aspergillus as a potential pathogen. Will finish the course of Levaquin and then she can start the voriconazole. The patient will going to wean down the prednisone down to 20 mg and will continue taking the Imuran 100 mg. the theophylline levels were undetected although she was told to stop the theophylline when she was in a hospital. Therefore will hold off on theophylline specially with other adverse effects in all the potential medication interactions. We did talk about the severity of her disease. She has end-stage respiratory failure. The patient will need to continue to use the ventilator during the nighttime and also during the daytime. Explained to them that has a battery life about 8 hours and therefore she can not carry the ventilator with her with a fullface mask and she can use it. The mouthpiece, sip and puff, did not work well for her she could not get a good seal and tolerated. Therefore will just continue using the fullface mask for now. If her condition continues to worsen did talk about briefly about a tracheostomy but she understands that this comes with other potential adverse effects and potential complications. 01/30/2023 the patient is here for a pulmonary follow-up visit. She is feeling better. She is down to 30 mg of prednisone. Has not been able to get lower than that. I had sent her a prescription for high dose Imuran but she has not been able to get as of yet. I will resubmit again to the pharmacy. When she is on the higher dose of Imuran hopefully we can decrease her prednisone some. She continues on the IVIG infusions. The patient did start the voriconazole although difficult for her to tolerated. She will continue to take it for now. She continues with her aggressive respiratory therapy. She still has excess lower extremity swelling specially the right lower extremity. We already did Doppler studies ruling out DVT. However, if the leg continues to be swollen I did advise her to go see urgent medical advice to get a repeat ultrasound. In the meantime will increase her diuretic to see if we can improve her volume status and therefore improve the lower extremity edema. The patient also is aware that this area can get infected. If it appears to be more erythematous she can always call her primary care doctor urgent care to be evaluated for cellulitis. The patient continues use her noninvasive ventilator. She is with it all night and seems to be tolerating it well during the daytime as well. The patient does have advanced respiratory failure and at this point she will require assistance from her noninvasive ventilator between 12-16 hours a day we did talk about the portability of the noninvasive ventilator that she can use it outside of the home with a battery life of 6-8 hours. 02/20/2023 the patient is here for a pulm onary follow-up visit. Overall she is doing better. She continues on 20 mg of prednisone. Sometimes she does take an additional 1. She also increase the amiodarone 200 mg daily. Although does not seem to be accurate at the pharmacy. I will resend that again for the right amount of medication. She did complete the voriconazole already. She has been getting the IVIG infusions. She is going to go today for next dose. She will get that every months. She is also working on quitting smoking which is reassuring. She is also using the noninvasive ventilator which she seems to be tolerating better. Overall she is in a better state. She is getting out another ultrasound of her lower extremity to rule out DVT. I did give her prescription for compression stockings that she should use in case her lower extremity Dopplers comes back negative again for clots. If it does have a clot she should avoid using the compression stockings until she sees the ordering physician. The patient does continue to use her respiratory therapy. She has been using her oxygen with good effect. The oxygen has been affecting beneficial. She is willing to start pulmonary rehabilitation at this time. [facility] Medical History (Updated 02/20/23 @ 21:24 by Allan Brito MD) Left leg swelling COPD (chronic obstructive pulmonary disease) Chronic lung disease Constipation Asthma with exacerbation Hypercapnic respiratory failure Salmonella gastroenteritis Pleuritic chest pain CHITO (obstructive sleep apnea) Cor pulmonale Obesity with alveolar hypoventilation Aspiration into airway Congestive heart failure Bacteremia Acute and chronic respiratory failure with hypercapnia Morbid obesity Chronic constipation Cellulitis COPD mixed type Leukocytosis Pulmonary congestion Vomiting COPD exacerbation Acute respiratory failure Status asthmaticus with COPD (chronic obstructive pulmonary disease) Hypertensive cardiovascular disease Type 2 diabetes mellitus Morbid obesity Rib fractures Pulmonary nodule Abnormal chest x-ray Opioid dependence Limb swelling Abdominal pain Diabetes mellitus Chronic respiratory failure Poor dentition Tobacco abuse Asthma-COPD overlap syndrome Hyperlipidemia, unspecified Essential hypertension Type 2 diabetes mellitus with unspecified complications Chronic respiratory failure Hypogammaglobulinemia Surgical History H/O tubal ligation Family History Father Diabetes Other Asthma Social History Household Members: Family Household Members Other:: daughter Housing: Apartment Do you presently have visiting nurse or other home services: Yes Unable to assess alcohol history related to: Unknown Alcohol intake: never Comment: patient declines bed alarm Patient Tobacco Use Status: Former Tobacco user Quit Date: February 2022 Tobacco use type: Cigarette Cigarettes Per Day: 1 Years Smoked: 35 e-Cigarette/Vaping Use: Currently Using Second Hand Smoke Exposure: No Substance Use Type: Opiates Advance Directives: Yes Advance Directives on File: Yes Advance Directives Date on File: 06/12/21 service: No Current occupational status: unemployed and disabled Review of Systems Const Denies night sweats ENT Denies change in voice, Denies lip swelling, Denies mouth pain, Reports nasal congestion, Reports nasal discharge and Denies tongue swelling Card Denies chest pain, Reports leg edema, Reports dyspnea and Reports dyspnea on exertion Resp Denies change in phlegm color, Denies chest congestion, Reports cough, Denies hemoptysis, Reports dyspnea, Reports dyspnea on exertion and Reports wheezing GI Reports abdominal pain Musc Denies no additional complaints Skin/Breast Denies pruritus and Denies lesions Neuro Denies Neuro-related abnormal movements Psych Denies no additional complaints Blade/Lymph Denies easy bleeding and Denies lymphadenopathy Aller/Immun Denies lip swelling, Denies tongue swelling and Reports wheezing Physical Exam Vital Signs: Last Vital Signs Pulse 89 02/20/23 10:26 Pulse Ox 92 02/20/23 10:26 Oxygen Delivery Method Room Air 02/20/23 10:26 BMI result Body Mass Index 35.0 Last Vital Signs Temp 98.3 F 08/04/21 12:00 Pulse 102 H 08/04/21 12:00 Resp 20 08/04/21 12:00 BP 140/73 H 08/04/21 12:00 Pulse Ox 94 08/04/21 12:00 Oxygen Flow Rate 35 08/03/21 20:00 BMI result Body Mass Index 36.9 Const General: comfortable and alert HEENT Head: Yes normocephalic Neck Neck: Yes normal visual inspection, Yes full ROM and Yes no lymphadenopathy Chest Chest palpation & inspection: normal inspection of the chest Resp Effort & Inspection: normal respiratory effort and prolonged expiratory phase Auscultation: diminished lung sounds Cardio Rate: regular rate Rhythm: regular rhythm Heart sounds: S1 normal heart sound present and S2 normal heart sound present GI Palpation (GI): Soft to palpation and nontender Auscultation: normal bowel sounds Skin General skin exam: rashes and/or lesions noted Extrem Right lower extremity: lower leg Details: erythema and warmth Assessment & Plan Assessment & Plan (1) COPD (chronic obstructive pulmonary disease): Code(s): J44.9 - Chronic obstructive pulmonary disease, unspecified Qualifiers: COPD type: chronic bronchitis Chronic bronchitis type: simple Qualified Code(s): J41.0 - Simple chronic bronchitis (2) Left leg swelling: Code(s): M79.89 - Other specified soft tissue disorders (3) Asthma-COPD overlap syndrome: Code(s): J44.9 - Chronic obstructive pulmonary disease, unspecified (4) Chronic respiratory failure: Code(s): J96.10 - Chronic respiratory failure, unspecified whether with hypoxia or hypercapnia Qualifiers: Respiratory failure complication: hypoxia and hypercapnia Qualified Code(s): J96.11 - Chronic respiratory failure with hypoxia; J96.12 - Chronic respiratory failure with hypercapnia (5) Hypercapnic respiratory failure: Code(s): J96.92 - Respiratory failure, unspecified with hypercapnia Qualifiers: Chronicity: chronic Qualified Code(s): J96.12 - Chronic respiratory failure with hypercapnia (6) Tobacco abuse: Code(s): Z72.0 - Tobacco use (7) Hypogammaglobulinemia: Code(s): D80.1 - Nonfamilial hypogammaglobulinemia Plan continue NIV while sleeping and while awake. Mouth piece not helpful, will use FM continue prednisone 20mg daily, sometimes takes 30mg bactrim PCP prophylaxis continue Imuran 100mg daily, monitor liver enzymes respiratory therapy, Nebs QID Needs to quit smoking, cutting down continue IVIG every 4 weeks Daliresp continue Lasix daily complete Voriconazole start pulmonary rehab F/U 4 weeks Orders: Orders Pulmonary Rehab Today J44.9 - Chronic obstructive pulmonary disease, unspecified Medications: New compress.stocking,knee,reg,med 15-20 cm 2 ea 0RF M79.89 - Other specified soft tissue disorders sulfamethoxazole-trimethoprim 400-80 mg (Bactrim) 1 tab PO DAILY 30 days 30 tabs 10RF Changed From azathioprine (Imuran) 50 mg PO DAILY To azathioprine (Imuran) 100 mg (2 x 50 mg) PO DAILY 30 days 60 tabs 11RF Refilled arformoterol (Brovana) 2 mL inhalation Q12H 30 days 120 mL 11RF J44.9 - Chronic obstructive pulmonary disease, unspecified budesonide 0.5 mg (2 mL) inhalation BID 120 mL 11RF J44.1 - Chronic obstructive pulmonary disease with (acute) exacerbation tiotropium bromide (Spiriva with HandiHaler) 1 cap inhalation DAILY 30 ea 11RF Quality Reporting (2019) Adult ([facility] 138/05/08/68) Smoking risk assessment performed?: Yes Patient Tobacco Use Status: Former Tobacco user Coding Level of Care Code Est Pt Level 5 (84880) Diagnoses Simple chronic bronchitis J41.0 COPD type: chronic bronchitis Chronic bronchitis type: simple Left leg swelling M79.89 Asthma-COPD overlap syndrome J44.9 Chronic respiratory failure with hypoxia and hypercapnia J96.11; J96.12 Respiratory failure complication: hypoxia and hypercapnia Chronic respiratory failure with hypercapnia J96.12 Chronicity: chronic Tobacco abuse Z72.0 Hypogammaglobulinemia D80.1 Time Spent (min) 40
== END 2023-02-20 10:47 | disposition home or self-care (01) ==
PROVIDERS: PCP Family Medicine; Visit Provider Hospitalist
DX: J41.0 Simple chronic bronchitis (principal); J96.11 Chronic respiratory failure with hypoxia; J96.12 Chronic respiratory failure with hypercapnia; Z87.891 Personal history of nicotine dependence; D80.1 Nonfamilial hypogammaglobulinemia
CPT/HCPCS: 99215

== ENCOUNTER 2023-02-20 09:21 | Outpatient (REF) | payer MEDICAID, SELFPAY | END 2023-02-20 09:22 | disposition home or self-care (01) | LOC: HO.LAB 09:21 | PROVIDERS: Visit Provider Hospitalist | DX: Z13.89 Encounter for screening for other disorder (principal) ==

== ENCOUNTER 2023-02-20 10:49 | Outpatient (REF) | payer MEDICAID, SELFPAY | END 2023-02-20 10:50 | disposition home or self-care (01) | LOC: HO.MDS 10:49 | PROVIDERS: PCP Family Medicine; Visit Provider Hospitalist | DX: D80.1 Nonfamilial hypogammaglobulinemia (principal); J41.0 Simple chronic bronchitis; J96.12 Chronic respiratory failure with hypercapnia; J96.11 Chronic respiratory failure with hypoxia; M79.89 Other specified soft tissue disorders; Z79.52 Long term (current) use of systemic steroids; Z79.899 Other long term (current) drug therapy; Z72.0 Tobacco use | CPT/HCPCS: 96365; 96366; 99212; J1569 ==

== ENCOUNTER 2023-02-20 20:56 | Inpatient (IN) | payer MEDICAID, SELFPAY ==
--- NOTE | 2023-02-20 | ECG_ITS ---
Test Reason : sob Blood Pressure : / mmHG Vent. Rate : 102 BPM Atrial Rate : 102 BPM P-R Int : 132 ms QRS Dur : 098 ms QT Int : 358 ms P-R-T Axes : 066 029 058 degrees QTc Int : 466 ms Artifact in tracing Sinus tachycardia Incomplete right bundle branch block cannot exclude old Inferior infarct , age undetermined Abnormal ECG When compared with ECG of 02-FEB-2023 10:19, No significant changes seen Referred By: Josee Araya Electronically Signed By:RONALD SCHAFER
--- NOTE | ~2023-02-20 | US_ITS ---
EXAMINATION: US VENOUS ULTRASOUND WITH DOPPLER LOWER EXTREMITY, RIGHT CLINICAL INFORMATION: Right lower extremity edema. COMPARISON: None available. TECHNIQUE: Ultrasound of the deep veins is performed from the hip to the calf with compression sonography and color and pulse Doppler assessment. Spectral analysis with color-flow imaging is performed. FINDINGS: There is normal venous compression and respiratory variation and augmented flow. The visualized common femoral vein, superficial femoral vein, profunda femoral vein, popliteal vein, and the trifurcation region shows no evidence of deep venous thrombosis. There is no significant popliteal fossa cyst. If the patient's symptoms persist, followup ultrasound in 5 days 7 days might be of value to exclude proximal propagation from a non-visualized calf vein. US/US venous duplex LE RT IMPRESSION: No DVT demonstrated in the right lower extremity.
--- NOTE | ~2023-02-20 | XR_ITS ---
EXAMINATION: XR CHEST CLINICAL INFORMATION: Shortness of breath COMPARISON: 02/02/2023 chest x-ray. TECHNIQUE: Frontal view of the chest was obtained. FINDINGS: The lungs are well-expanded and clear of acute pneumonic process. The heart size is borderline normal. There is mild increased vascularity suggestive mild congestion. No pleural effusion seen. No gross bony abnormality. XR/XR chest 1V IMPRESSION: Suspect mild pulmonary vascular congestion. No pleural effusion seen. Similar findings were seen on previous study 02/02/2023.
[2023-02-20 21:03] VITALS: BP 150/98; O2SAT 80
[2023-02-20 21:05] VITALS: BMI 39.2
--- NOTE | 2023-02-20 21:07 | ED.SOB ---
HPI - SOB/Dyspnea General Chief Complaint: Dyspnea Stated Complaint: resp. distress Source: patient and EMS Mode of arrival: EMS History of Present Illness HPI Narrative: 53-year-old female with known COPD comes in via EMS with acute exacerbation. Patient tachypneic with increased work of breathing and currently on CPAP. En route patient received DuoNeb and steroids. Related Data Home Medications Medication Instructions Recorded Confirmed loratadine 10 mg tablet (Claritin) 10 mg PO DAILY 12/30/19 02/02/23 montelukast 10 mg tablet 10 mg PO BEDTIME 12/30/19 02/02/23 diltiazem HCl 360 mg capsule,24 360 mg PO DAILY 11/16/20 02/02/23 hr,extended release (Tiadylt ER) roflumilast 500 mcg tablet 500 mcg PO DAILY 11/16/20 02/02/23 (Daliresp) rosuvastatin 5 mg tablet 5 mg PO BEDTIME 11/16/20 02/02/23 metformin 500 mg tablet,extended 1,000 mg PO BID 05/18/21 02/02/23 release 24 hr methadone 10 mg/mL oral concentrate 50 mg PO DAILY 06/06/21 02/03/23 hydralazine 25 mg tablet 25 mg PO TIDWM 11/02/21 02/02/23 insulin lispro 100 unit/mL 4 unit subcut TIDAC 11/02/21 02/02/23 subcutaneous solution clonazepam 1 mg tablet 1 mg PO BID PRN Anxiety 06/28/22 02/02/23 ibuprofen 600 mg tablet 600 mg PO Q8H PRN Pain 06/28/22 02/02/23 alendronate 70 mg tablet 70 mg PO QWEEK 07/29/22 12/21/22 lamotrigine 150 mg tablet 150 mg PO BID 07/29/22 02/02/23 lidocaine 5 % topical patch 1 patch topical DAILY 07/29/22 02/02/23 calcitonin (salmon) 200 1 spray intranasal DAILY 09/30/22 02/02/23 unit/actuation nasal spray cholecalciferol (vitamin D3) 1,250 1,250 mcg PO WE@0900 09/30/22 02/02/23 mcg (50,000 unit) capsule insulin glargine 100 unit/mL 35 unit subcut BEDTIME 09/30/22 02/02/23 subcutaneous solution (Lantus U-100 Insulin) docusate sodium 100 mg capsule 100 mg PO BID PRN constipation 10/20/22 02/02/23 zolpidem 5 mg tablet 5 mg PO BEDTIME PRN Sleep 10/20/22 02/02/23 nebulizers 11/08/22 02/02/23 bupropion HCl 100 mg tablet 100 mg PO DAILY 12/21/22 02/02/23 diclofenac potassium 50 mg tablet 50 mg PO TID PRN Pain 12/21/22 02/02/23 polyethylene glycol 3350 17 17 g PO DAILY constipation 12/21/22 02/02/23 gram/dose oral powder (Miralax) salmeterol 50 mcg/dose blister 1 inh inhalation BID 12/21/22 02/02/23 powder for inhalation (Serevent Diskus) ammonium lactate 12 % lotion 1 appl topical DAILY PRN Rash 02/02/23 02/02/23 furosemide 20 mg tablet (Lasix) 40 mg PO DAILY 02/02/23 02/02/23 Previous Rx's Medication Instructions Recorded simethicone 80 mg chewable tablet 80 mg PO QIDWMHS PRN Abdominal 01/05/22 (Gas Relief (simethicone)) Distention #30 tabs ipratropium 0.5 mg-albuterol 3 mg 3 ml PO Q4H PRN for wheezing #540 09/02/22 (2.5 mg base)/3 mL nebulization mL soln sodium chloride 7 % for 4 ml inhalation BID #240 mL 09/20/22 nebulization omeprazole 40 mg capsule,delayed 40 mg PO DAILY@0630 30 days #30 09/24/22 release caps folic acid 1 mg tablet 1 mg PO DAILY 30 days #30 tabs 12/19/22 lisinopril 10 mg tablet 10 mg PO DAILY 30 days #30 tabs 12/27/22 gabapentin 300 mg capsule 300 mg PO BID #60 caps 01/14/23 voriconazole 200 mg tablet 200 mg PO Q12H 30 days #60 tabs 01/14/23 prednisone 10 mg tablet See Taper PO DIRECTED #20 tabs 02/05/23 albuterol sulfate 90 mcg/actuation 2 puff inhalation Q4H PRN 02/19/23 aerosol inhaler (ProAir HFA) Shortness Of Breath Or Wheezing #1 ea arformoterol 15 mcg/2 mL solution 2 ml inhalation Q12H 30 days #120 02/20/23 for nebulization (Brovana) mL azathioprine 50 mg tablet (Imuran) 100 mg (2 x 50 mg) PO DAILY 30 02/20/23 days #60 tabs budesonide 0.5 mg/2 mL suspension 0.5 mg (2 mL) inhalation BID #120 02/20/23 for nebulization mL compress.stocking,knee,reg,med #2 ea 02/20/23 sulfamethoxazole 400 1 tab PO DAILY 30 days #30 tabs 02/20/23 mg-trimethoprim 80 mg tablet (Bactrim) tiotropium bromide 18 mcg capsule 1 cap inhalation DAILY #30 ea 02/20/23 with inhalation device (Spiriva with HandiHaler) Allergies Allergy/AdvReac Type Severity Reaction Status Date / Time No Known Allergies Allergy Verified 02/20/23 10:28 [No Known Allergies*] Review of Systems Review of Systems: Pertinent positives and negatives as stated in HPI [facility] Past Medical History Source: nursing notes reviewed Medical History Left leg swelling COPD (chronic obstructive pulmonary disease) Chronic lung disease Constipation Asthma with exacerbation Hypercapnic respiratory failure Salmonella gastroenteritis Pleuritic chest pain CHITO (obstructive sleep apnea) Cor pulmonale Obesity with alveolar hypoventilation Aspiration into airway Congestive heart failure Bacteremia Acute and chronic respiratory failure with hypercapnia Morbid obesity Chronic constipation Cellulitis COPD mixed type Leukocytosis Pulmonary congestion Vomiting COPD exacerbation Acute respiratory failure Status asthmaticus with COPD (chronic obstructive pulmonary disease) Hypertensive cardiovascular disease Type 2 diabetes mellitus Morbid obesity Rib fractures Pulmonary nodule Abnormal chest x-ray Opioid dependence Limb swelling Abdominal pain Diabetes mellitus Chronic respiratory failure Poor dentition Tobacco abuse Asthma-COPD overlap syndrome Hyperlipidemia, unspecified Essential hypertension Type 2 diabetes mellitus with unspecified complications Chronic respiratory failure Hypogammaglobulinemia Surgical History H/O tubal ligation Family History Family History Father Diabetes Other Asthma Social History Social History Household Members: Family Household Members Other:: daughter Housing: Apartment Do you presently have visiting nurse or other home services: Yes Unable to assess alcohol history related to: Unknown Alcohol intake: never Comment: patient declines bed alarm Patient Tobacco Use Status: Former Tobacco user Quit Date: February 2022 Tobacco use type: Cigarette Cigarettes Per Day: 1 Years Smoked: 35 e-Cigarette/Vaping Use: Currently Using Second Hand Smoke Exposure: No Substance Use Type: Opiates Advance Directives: Yes Advance Directives on File: Yes Advance Directives Date on File: 06/12/21 service: No Current occupational status: unemployed and disabled Physical Exam Vital Signs: Vital Signs: Last Vital Signs Temp 98.0 F 02/21/23 00:05 Pulse 105 H 02/21/23 00:05 Resp 18 02/21/23 00:25 BP 179/90 H 02/21/23 00:05 Pulse Ox 97 02/21/23 00:05 O2 Del Method Nasal Cannula 02/21/23 00:05 O2 Flow Rate 2 02/21/23 00:05 BMI result Body Mass Index 39.2 VITAL SIGNS: Reviewed. GENERAL: Well developed, well nourished, in no acute distress. HEAD: Normocephalic/atraumatic EYES: PERRLA, EOMI EARS: Ext canals without abnormality NOSE: Nares patent bilateral OROPHARYNX: no oral lesions noted, posterior pharynx clear NECK: Supple, no adenopathy LUNGS: Decreased breath sounds bilaterally with expiratory wheeze, tachypnea and increased work of breathing is present. SpO2<97> on CPAP CARDIOVASCULAR: Regular rate and rhythm without noted murmurs, no JVD or lower extremity edema. ABDOMEN: Soft, non-tender, non-distended with bowel sounds. MUSCULOSKELETAL: No tenderness, deformities, or effusions noted on gross inspection. EXTREMITIES: No cyanosis, clubbing or edema. SKIN: Inspection of the skin reveals no rashes NEUROLOGIC: Alert and oriented x 4. Strength and sensation to light touch were grossly intact x 4. Medications Administered Discontinued Medications Generic Name Dose Route Start Last Admin Trade Name Freq PRN Reason Stop Dose Admin Albuterol Sulfate 5 mg/ 7.5 mg 02/20/23 22:05 02/20/23 22:10 Albuterol Sulfate 2.5 mg INHALE 02/20/23 22:06 7.5 mg ONCE ONE Administration Albuterol Sulfate 7.5 mg/ 10 mg 02/20/23 23:29 02/20/23 23:33 Albuterol Sulfate 2.5 mg INHALE 02/20/23 23:30 10 mg ONCE ONE Administration Albuterol Sulfate 5 mg/ 0 mg 02/20/23 21:00 02/20/23 21:10 Albuterol/Ipratropium 3 ml INHALE 02/20/23 21:01 2 each ONCE ONE Administration Medical Decision Making Medical Decision Making MDM Narrative: 53-year-old female with history and clinical presentation, DDX: Exacerbation of underlying chronic lung disease, pneumonia, viral infection INTERVENTION: CPAP, steroids, albuterol I reviewed all investigations and hematologic indices demonstrate a leukocytosis with a left shift that is likely reflective of steroid administration and route as patient is otherwise afebrile. Patient has a stable microcytic anemia without thrombocytopenia. Initial VBG demonstrated hypercapnia without respiratory acidosis and subsequent VBG after interventions demonstrates reversal of hypercapnia and pH tending towards alkalosis. Chemistry indices are chronically stable without demonstrated VERONIKA and no electrolyte or liver enzyme derangements. All a chest x-ray did report concerns for mild pulmonary vascular congestion, there are no acute findings on clinical exam and BNP is not elevated. Patient does have home dose of Lasix, but she is otherwise oxygenating well at this time. Viral testing negative for influenza/COVID. She is sleeping and will need to be placed back on home settings for her CPAP. 0039: I discussed case with inpatient hospitalist who accepts admission Differential Diagnosis Differential Diagnoses: The differential diagnosis associated with the presentation includes Please see the discussion above Admission/Observation Consideration of admission/observation: Escalation of care including admission/observation considered Please see the discussion above Consult Healthcare Provider Management of the patient was discussed with: Hospitalist Please see the discussion above Lab Data [facility] Lab Attestation statement: I reviewed the patient's lab results. Please see the discussion above 02/20/23 21:15 02/20/23 21:15 Labs: Lab Results 02/20/23 02/20/23 02/20/23 Range/Units 21:15 21:20 22:59 WBC 14.1 H (4.8-10.8) X10*3/uL RBC 3.94 L (4.20-5.50) X10*6/uL Hgb 11.7 L (12.0-16.0) g/dl Hct 39.2 (37.0-47.0) % MCV 99.5 H (80.0-98.0) fL MCH 29.7 (27.0-33.0) pg MCHC 29.8 L (31.0-35.0) g/dl RDW 14.3 (11.0-16.0) % Plt Count 260 (160-400) X10*3/uL MPV 9.1 L (9.4-12.3) fL Immature Gran % (Auto) 0.9 H (0.0-0.4) % Neut % (Auto) 84.2 H (45-73) % Lymph % (Auto) 8.4 L (20-40) % Mcdonough % (Auto) 5.9 (2-11) % Eos % (Auto) 0.3 (0-4) % Baso % (Auto) 0.3 (0-2) % Lymph # (Auto) 1.2 (1.2-4.9) X10*3/uL Mcdonough # (Auto) 0.8 (0.1-1.2) X10*3/uL Eos # (Auto) 0.0 (0.0-0.4) X10*3/uL Baso # (Auto) 0.0 (0.0-0.2) X10*3/uL Abs Immat Gran (auto) 0.13 H (0.00-0.03) X10*3/uL Absolute Neuts (auto) 11.9 H (2.0-8.3) x10*3/uL Absolute Nucleated RBC 0.000 (0.0-0.012) X10*3/uL Nucleated RBC % (auto) 0.0 (0.0-0.2) /100WBC VBG pH 7.35 7.61 H* (7.32-7.43) VBG pCO2 84 43 mmHg VBG pO2 67 134 mmHg VBG HCO3 47 H 43 H (22-26) mmol/L VBG O2 Saturation 89.0 99.0 % VBG Base Excess 17.0 20.2 mmol/L Sodium 144 (135-145) mmol/L Potassium 4.0 (3.3-5.1) mmol/L Chloride 93 L (96-108) mmol/L Carbon Dioxide 39 H (22-29) mmol/L Anion Gap 16 (12-20) BUN 24 H (9-16) mg/dL Creatinine 0.70 (0.5-1.4) mg/dL Estim Creat Clear Calc 89.7 Estimated GFR > 60 Random Glucose 145 H (60-115) mg/dL Lactic Acid 0.7 (0.5-2.0) mmol/L Calcium 10.1 D (8.4-10.2) mg/dL Total Bilirubin 0.2 (0.0-1.0) mg/dL AST 16 (5-31) U/L ALT 21 (0-31) U/L Alkaline Phosphatase 59 (39-117) U/L B-Natriuretic Peptide 43 (<100) pg/mL Total Protein 8.0 (6.5-8.0) g/dL Albumin 4.0 (3.5-5.0) g/dL COVID-19 (PAPO) (Negative) COVID-19 Clin Com Influenza Type A (ISMAEL) (Negative) Influenza Type B (ISMAEL) (Negative) Influenza A & B Note 02/20/23 Range/Units 23:52 WBC (4.8-10.8) X10*3/uL RBC (4.20-5.50) X10*6/uL Hgb (12.0-16.0) g/dl Hct (37.0-47.0) % MCV (80.0-98.0) fL MCH (27.0-33.0) pg MCHC (31.0-35.0) g/dl RDW (11.0-16.0) % Plt Count (160-400) X10*3/uL MPV (9.4-12.3) fL Immature Gran % (Auto) (0.0-0.4) % Neut % (Auto) (45-73) % Lymph % (Auto) (20-40) % Mcdonough % (Auto) (2-11) % Eos % (Auto) (0-4) % Baso % (Auto) (0-2) % Lymph # (Auto) (1.2-4.9) X10*3/uL Mcdonough # (Auto) (0.1-1.2) X10*3/uL Eos # (Auto) (0.0-0.4) X10*3/uL Baso # (Auto) (0.0-0.2) X10*3/uL Abs Immat Gran (auto) (0.00-0.03) X10*3/uL Absolute Neuts (auto) (2.0-8.3) x10*3/uL Absolute Nucleated RBC (0.0-0.012) X10*3/uL Nucleated RBC % (auto) (0.0-0.2) /100WBC VBG pH (7.32-7.43) VBG pCO2 mmHg VBG pO2 mmHg VBG HCO3 (22-26) mmol/L VBG O2 Saturation % VBG Base Excess mmol/L Sodium (135-145) mmol/L Potassium (3.3-5.1) mmol/L Chloride (96-108) mmol/L Carbon Dioxide (22-29) mmol/L Anion Gap (12-20) BUN (9-16) mg/dL Creatinine (0.5-1.4) mg/dL Estim Creat Clear Calc Estimated GFR Random Glucose (60-115) mg/dL Lactic Acid (0.5-2.0) mmol/L Calcium (8.4-10.2) mg/dL Total Bilirubin (0.0-1.0) mg/dL AST (5-31) U/L ALT (0-31) U/L Alkaline Phosphatase (39-117) U/L B-Natriuretic Peptide (<100) pg/mL Total Protein (6.5-8.0) g/dL Albumin (3.5-5.0) g/dL COVID-19 (PAPO) Negative (Negative) COVID-19 Clin Com See Note Influenza Type A (ISMAEL) Negative (Negative) Influenza Type B (ISMAEL) Negative (Negative) Influenza A & B Note See Note Independent Interpretation I performed an independent interpretation of an: EKG Interpretation: Sinus tachycardia, HR-102, no STEMI, MI/QRS/QTC is within normal limits. Radiology Impression Discussion of test interpretation with radiology: I have reviewed the radiologist's reading. Radiologist Impression: Please see the discussion above External Record Review External record reviewed: Outpatient record, Prior outpatient labs and Prior outpatient radiology Chronic Conditions Patient?s care impacted by: Other COPD Procedures EJ/Peripheral Line Arm L: Time Out Performed: No Skin Cleansed in Sterile Fashion: Yes Size (gauge): 20 IV Secured and Dressing Applied: Yes Patient Tolerated Procedure: well Additional Comments: This intravenous line was placed via ultrasound guidance. Critical Care Time Critical Care Time Critical Care Time: Yes Total Critical Care Time: 60 Attestation: I personally attest to this time spent taking care of the patient. Discharge Plan Discharge Clinical Impression: COPD exacerbation Patient Disposition: Admitted As Inpatient Prescriptions: No Action ipratropium-albuterol 0.5 mg-3 mg(2.5 mg base)/3 mL solution for nebulization 3 ml PO Q4H PRN (Reason: for wheezing) Qty: 540 6RF sodium chloride 7 % solution for nebulization 4 ml inhalation BID Qty: 240 11RF omeprazole 40 mg capsule,delayed release(DR/EC) 40 mg PO DAILY@0630 30 Days Qty: 30 6RF gabapentin 300 mg capsule 300 mg PO BID Qty: 60 11RF albuterol sulfate [ProAir HFA] 90 mcg/actuation HFA aerosol inhaler 2 puff inhalation Q4H PRN (Reason: Shortness Of Breath Or Wheezing) Qty: 1 0RF diltiazem HCl [Tiadylt ER] 360 mg capsule,extended release 24 hr 360 mg PO DAILY rosuvastatin 5 mg tablet 5 mg PO BEDTIME roflumilast [Daliresp] 500 mcg tablet 500 mcg PO DAILY metformin 500 mg tablet extended release 24 hr 1,000 mg PO BID hydralazine 25 mg tablet 25 mg PO TIDWM insulin lispro 100 unit/mL solution 4 unit subcut TIDAC methadone 10 mg/mL Concentrate 50 mg PO DAILY Patient Comments: [facility] PICKS UP AND ADMINISTERS simethicone [Gas Relief (simethicone)] 80 mg Tablet,Chewable 80 mg PO QIDWMHS PRN (Reason: Abdominal Distention) Qty: 30 0RF lamotrigine 150 mg tablet 150 mg PO BID alendronate 70 mg tablet 70 mg PO QWEEK lidocaine 5 % adhesive patch,medicated 1 patch topical DAILY Rx Instructions: APPLY FOR 12 HOURS THEN REMOVE FOR 12 HOURS cholecalciferol (vitamin D3) 1,250 mcg (50,000 unit) capsule 1,250 mcg PO WE@0900 calcitonin (salmon) 200 unit/actuation spray,non-aerosol 1 spray intranasal DAILY Rx Instructions: one nostril every day, alternate sides. insulin glargine [Lantus U-100 Insulin] 100 unit/mL solution 35 unit subcut BEDTIME docusate sodium 100 mg capsule 100 mg PO BID PRN (Reason: constipation) zolpidem 5 mg tablet 5 mg PO BEDTIME PRN (Reason: Sleep) clonazepam 1 mg tablet 1 mg PO BID PRN (Reason: Anxiety) ibuprofen 600 mg tablet 600 mg PO Q8H PRN (Reason: Pain) bupropion HCl 100 mg tablet 100 mg PO DAILY Serevent Diskus 50 mcg/dose blister with device 1 inh INHALATION BID polyethylene glycol 3350 [Miralax] 17 gram/dose powder 17 g PO DAILY diclofenac potassium 50 mg Tablet 50 mg PO TID PRN (Reason: Pain) lisinopril 10 mg Tablet 10 mg PO DAILY 30 Days Qty: 30 0RF Protocol: Hold for SBP< HOLD for SBP < : 90 ammonium lactate 12 % lotion 1 appl topical DAILY PRN (Reason: Rash) furosemide [Lasix] 20 mg tablet 40 mg PO DAILY prednisone 10 mg tablet See Taper PO DIRECTED Qty: 20 0RF Taper: Prednisone 40 mg daily for 3 Days and 0 Hour 30 mg daily for 3 Days and 0 Hour 20 mg daily for 3 Days and 0 Hour 10 mg daily for 3 Days and 0 Hour Rx Instructions: see taper instructions montelukast 10 mg tablet 10 mg PO BEDTIME loratadine [Claritin] 10 mg tablet 10 mg PO DAILY azathioprine [Imuran] 50 mg tablet 100 mg PO DAILY 30 Days Qty: 60 11RF (DME) compress.stocking,knee,reg,med Misc See Rx Instructions .Route Qty: 2 0RF Rx Instructions: 15-20 cm arformoterol [Brovana] 15 mcg/2 mL solution for nebulization 2 ml inhalation Q12H 30 Days Qty: 120 11RF budesonide 0.5 mg/2 mL suspension for nebulization 0.5 mg inhalation BID Qty: 120 11RF tiotropium bromide [Spiriva with HandiHaler] 18 mcg capsule, w/inhalation device 1 cap inhalation DAILY Qty: 30 11RF sulfamethoxazole-trimethoprim [Bactrim] 400-80 mg tablet 1 tab PO DAILY 30 Days Qty: 30 10RF (DME) nebulizers Misc See Rx Instructions .ROUTE Rx Instructions: As directed voriconazole 200 mg tablet 200 mg PO Q12H 30 Days Qty: 60 1RF Rx Instructions: administer on empty stomach, at least 1 hour before or after meal(s) folic acid 1 mg tablet 1 mg PO DAILY 30 Days Qty: 30 6RF
[2023-02-20] MEDS: Albuterol Sulfate 5 MG, Albuterol/Iprat 2.5/0.5MG 3 ML 3 ML INHALE (21:10)
[2023-02-20 21:11] VITALS: BP 147/111; PULSE 107; RESP 17; RESP 21; TEMP 36.4; O2SAT 93; O2SAT 94
[2023-02-20 21:20] LABS: MANUAL DIFF FLAG NO
[2023-02-20 21:24] LABS: VBG HCO3 47 mmol/L (22-26); VBG pCO2 84 mmHg; VBG pH 7.35 (7.32-7.43); VBG pO2 67 mmHg
[2023-02-20 21:24] LABS: Venous Blood Gas Refer to POC result
[2023-02-20 21:26] LABS: Basophils Percent Auto 0.3 % (0-2); Eosinophils Percent Auto 0.3 % (0-4); Hematocrit 39.2 % (37.0-47.0); Hemoglobin 11.7 g/dl (12.0-16.0); Imm Gran Abs Auto 0.13 X10*3/uL (0.00-0.03); Imm Gran Pct Auto 0.9 % (0.0-0.4); Lymphocytes Absolute Auto 1.2 X10*3/uL (1.2-4.9); Lymphocytes Percent Auto 8.4 % (20-40); Mean Corpuscular HGB Conc 29.8 g/dl (31.0-35.0); Mean Corpuscular Hemoglobin 29.7 pg (27.0-33.0); Mean Corpuscular Volume 99.5 fL (80.0-98.0); Mean Platelet Volume 9.1 fL (9.4-12.3); Monocytes Absolute Auto 0.8 X10*3/uL (0.1-1.2); Monocytes Percent Auto 5.9 % (2-11); Neutrophils Absolute Auto 11.9 x10*3/uL (2.0-8.3); Neutrophils Percent Auto 84.2 % (45-73); Platelet Count 260 X10*3/uL (160-400); Red Blood Count 3.94 X10*6/uL (4.20-5.50); Red Cell Distribution Width 14.3 % (11.0-16.0); White Blood Count 14.1 X10*3/uL (4.8-10.8)
[2023-02-20 21:31] LABS: Lactic Acid 0.7 mmol/L (0.5-2.0)
[2023-02-20 21:36] LABS: Alanine Aminotransferase 21 U/L (0-31); Alkaline Phosphatase 59 U/L (39-117); Anion Gap 16 (12-20); Aspartate Amino Transferase 16 U/L (5-31); Bilirubin Total 0.2 mg/dL (0.0-1.0); Blood Urea Nitrogen 24 mg/dL (9-16); Calcium 10.1 mg/dL (8.4-10.2); Carbon Dioxide 39 mmol/L (22-29); Chloride 93 mmol/L (96-108); Creatinine Clr Calc Pharmacy 89.7; Estimated Glomerular Filt Rate > 60; Glucose Random 145 mg/dL (60-115); Sodium 144 mmol/L (135-145)
[2023-02-20 22:10] VITALS: PULSE 104; RESP 20; O2SAT 93
[2023-02-20] MEDS: Albuterol Sulfate 5 MG, Albuterol Sulfate (0.083%) 2.5 MG 7.5 MG INHALE (22:10)
[2023-02-20 22:59] VITALS: BP 160/90
[2023-02-20 23:13] LABS: Venous Blood Gas Refer to POC result
[2023-02-20 23:14] LABS: VBG Base Excess 20.2 mmol/L; VBG HCO3 43 mmol/L (22-26); VBG pCO2 43 mmHg; VBG pH 7.61 (7.32-7.43); VBG pO2 134 mmHg
[2023-02-20] MEDS: Albuterol Sulfate 7.5 MG, Albuterol Sulfate (0.083%) 2.5 MG 10 MG INHALE (23:33)
[2023-02-20 23:34] VITALS: PULSE 104; RESP 20; O2SAT 93
[2023-02-21] VITALS (16 sets, daily range): BP systolic 130–185; BP diastolic 73–100; PULSE 95–120; RESP 11–22; TEMP 36.4–36.9; O2SAT 90–98; BMI 39.8
--- NOTE | 2023-02-21 00:08 | MHC.EDTECH ---
This tech assumed care of patient at 2300,hourly rounds and vitals completed,patients BP is elevated RN Bernadine made aware. Call lu within reach
[2023-02-21 00:20] LABS: COVID-19 Test Negative (Negative); IDNOW Serial# 08D9AD1C; IDNOW Serial# BCCEAD1C; Influenza A Negative (Negative); Influenza B2 Negative (Negative)
[2023-02-21 00:40] LABS: B Type Natriuretic Peptide 43 pg/mL (<100)
--- NOTE | 2023-02-21 01:47 | MHC.EDTECH ---
Hourly rounds and vitals completed,patient is resting comfortably at this time and call lu within reach.
--- NOTE | 2023-02-21 03:34 | P.HPHOSP_ITS ---
History of Present Illness Date of Service: 02/21/23 Attending physician on admission: Kareem Isaac Chief Complaint: Shortness of breath Patient is a 53 year old obese (BMI 39.2) female with past medical history of asthma-COPD overlap syndrome, chronic hypercarbic & hypoxic respiratory failure (on oxygen & nocturnal BiPAP), pulmonary aspergillosis, obstructive sleep apnea, obesity hypoventilation syndrome, hypertension, hyperlipidemia, and T2DM who presented to the emergency room from home via EMS complaining of SOB that has been progressively worsening over the last 2 days despite her using her home updrafts and BiPAP at night. This has been associated with a cough that is productive of brownish phlegm and JOHNY chest pain that is worse with the cough. She denies any associated fevers or chills, has not recently travelled and denies sick contacts. Symptoms are very similar to her previous episodes of COPD exacerbation. When EMS personnel arrived at scene, they found her hypoxic with SpO2 of 80% on room air. They placed her on CPAP and administered 125 mg of IM Solu-Medrol and gave her an updraft treatment en-route to the emergency room where on arrival she was transitioned to a BiPAP mask. Work up done in the ED included an VBG that was significant for a pH of 7.61 and a HCO3 of 43. CBC done had a leucocytosis of 14.1 k/mm3 which is chronic while her comprehensive metabolic panel was fairly normal. She received an hour long Duo Neb updraft and was continued on BiPAP and admission requested for ongoing care. When I saw her, she was still in respiratory distress and on BiPAP and so not much information was available from her. Review of Systems 2 Review of Systems: Yes all other systems are reviewed and are negative [facility] Medical History Left leg swelling COPD (chronic obstructive pulmonary disease) Chronic lung disease Constipation Asthma with exacerbation Hypercapnic respiratory failure Salmonella gastroenteritis Pleuritic chest pain CHITO (obstructive sleep apnea) Cor pulmonale Obesity with alveolar hypoventilation Aspiration into airway Congestive heart failure Bacteremia Acute and chronic respiratory failure with hypercapnia Morbid obesity Chronic constipation Cellulitis COPD mixed type Leukocytosis Pulmonary congestion Vomiting COPD exacerbation Acute respiratory failure Status asthmaticus with COPD (chronic obstructive pulmonary disease) Hypertensive cardiovascular disease Type 2 diabetes mellitus Morbid obesity Rib fractures Pulmonary nodule Abnormal chest x-ray Opioid dependence Limb swelling Abdominal pain Diabetes mellitus Chronic respiratory failure Poor dentition Tobacco abuse Asthma-COPD overlap syndrome Hyperlipidemia, unspecified Essential hypertension Type 2 diabetes mellitus with unspecified complications Chronic respiratory failure Hypogammaglobulinemia Family History Father Diabetes Other Asthma Surgical History H/O tubal ligation Social History Household Members: Family Household Members Other:: daughter Housing: Apartment Do you presently have visiting nurse or other home services: Yes Unable to assess alcohol history related to: Unknown Alcohol intake: never Comment: patient declines bed alarm Patient Tobacco Use Status: Former Tobacco user Quit Date: February 2022 Tobacco use type: Cigarette Cigarettes Per Day: 1 Years Smoked: 35 e-Cigarette/Vaping Use: Currently Using Second Hand Smoke Exposure: No Substance Use Type: Opiates Advance Directives: Yes Advance Directives on File: Yes Advance Directives Date on File: 06/12/21 Nutrition Risks: No Nutritional Risk service: No Current occupational status: unemployed and disabled Meds Allergies Allergy/AdvReac Type Severity Reaction Status Date / Time No Known Allergies Allergy Verified 02/20/23 10:28 [No Known Allergies*] Home Medications Medication Instructions Recorded Confirmed Last Taken Type loratadine 10 mg tablet (Claritin) 10 mg PO DAILY 12/30/19 02/02/23 02/02/23 09:00 History montelukast 10 mg tablet 10 mg PO BEDTIME 12/30/19 02/02/23 02/02/23 09:00 History diltiazem HCl 360 mg capsule,24 360 mg PO DAILY 11/16/20 02/02/23 02/02/23 09:00 History hr,extended release (Tiadylt ER) roflumilast 500 mcg tablet 500 mcg PO DAILY 11/16/20 02/02/23 02/02/23 09:00 History (Daliresp) rosuvastatin 5 mg tablet 5 mg PO BEDTIME 11/16/20 02/02/23 02/02/23 09:00 History metformin 500 mg tablet,extended 1,000 mg PO BID 05/18/21 02/02/23 02/02/23 09:00 History release 24 hr methadone 10 mg/mL oral concentrate 50 mg PO DAILY 06/06/21 02/03/23 02/02/23 09:00 History hydralazine 25 mg tablet 25 mg PO TIDWM 11/02/21 02/02/23 02/02/23 09:00 History insulin lispro 100 unit/mL 4 unit subcut TIDAC 11/02/21 02/02/23 02/02/23 09:00 History subcutaneous solution clonazepam 1 mg tablet 1 mg PO BID PRN Anxiety 06/28/22 02/02/23 Unknown History ibuprofen 600 mg tablet 600 mg PO Q8H PRN Pain 06/28/22 02/02/23 Unknown History alendronate 70 mg tablet 70 mg PO QWEEK 07/29/22 12/21/22 09/28/22 History lamotrigine 150 mg tablet 150 mg PO BID 07/29/22 02/02/23 02/02/23 09:00 History lidocaine 5 % topical patch 1 patch topical DAILY 07/29/22 02/02/23 02/02/23 09:00 History calcitonin (salmon) 200 1 spray intranasal DAILY 09/30/22 02/02/23 02/02/23 09:00 History unit/actuation nasal spray cholecalciferol (vitamin D3) 1,250 1,250 mcg PO WE@0900 09/30/22 02/02/23 01/29/23 History mcg (50,000 unit) capsule insulin glargine 100 unit/mL 35 unit subcut BEDTIME 09/30/22 02/02/23 02/02/23 09:00 History subcutaneous solution (Lantus U-100 Insulin) docusate sodium 100 mg capsule 100 mg PO BID PRN constipation 10/20/22 02/02/23 Unknown History zolpidem 5 mg tablet 5 mg PO BEDTIME PRN Sleep 10/20/22 02/02/23 Unknown History nebulizers 11/08/22 02/02/23 02/02/23 09:00 History bupropion HCl 100 mg tablet 100 mg PO DAILY 12/21/22 02/02/23 02/02/23 09:00 History diclofenac potassium 50 mg tablet 50 mg PO TID PRN Pain 12/21/22 02/02/23 Unknown History polyethylene glycol 3350 17 17 g PO DAILY constipation 10/07/23 11/19/23 11/19/23 09:00 History gram/dose oral powder (Miralax) salmeterol 50 mcg/dose blister 1 inh inhalation BID 12/21/22 02/02/23 02/02/23 09:00 History powder for inhalation (Serevent Diskus) ammonium lactate 12 % lotion 1 appl topical DAILY PRN Rash 02/02/23 02/02/23 Unknown History furosemide 20 mg tablet (Lasix) 40 mg PO DAILY 02/02/23 02/02/23 02/02/23 09:00 History Physical Exam 2 Vital Signs and Narrative: Vital Signs: Last Vital Signs Temp 97.9 F 02/21/23 01:45 Pulse 110 H 02/21/23 01:45 Resp 16 02/21/23 02:54 BP 162/84 H 02/21/23 01:45 Pulse Ox 91 L 02/21/23 01:45 O2 Del Method BiPAP 02/21/23 01:45 O2 Flow Rate 2 02/21/23 00:05 BMI result Body Mass Index 39.2 General: Obese female in bed on BiPAP. Awake and alert and in obvious respiratory distress. Eyes: No pallor or jaundice. PERRLA, EOMI HENT: Deferred . Neck: Supple. No cervical adenopathy. No JVD Cardiovascular: [id number] but regular. Normal s1/s2. No murmurs, rubs or gallops. No JVD. Trace pitting edema in right leg. Respiratory: Normal respiratory effort with no accessory muscle use. CTAB. Gastrointestinal: Abdomen is obese but soft, non-tender, non-distended. Normoactive bowel sounds. No hepatosplenomegaly Extremities: Trace pitting edema right leg. No calf tenderness. Good peripheral pulses Skin: Warm/Dry. No rashes. No mottling. Capillary refill is < 2 seconds Neurological: AAOx4. Intact speech & cognition. Normal gait & balance. CN II - XII grossly intact but not individually tested. No motor or sensory deficits Hematologic: No bleeding. No ecchymosis. No swollen or tender lymph nodes. Psychiatric: Cooperative. Appropriate mood and affect . Results Labs 02/20/23 21:15 02/20/23 21:15 Labs: Laboratory Results - last 24 hr 02/20/23 02/20/23 02/20/23 21:15 21:20 22:59 MCV 99.5 H MCH 29.7 MCHC 29.8 L RDW 14.3 Plt Count 260 MPV 9.1 L Immature Gran % (Auto) 0.9 H Neut % (Auto) 84.2 H Lymph % (Auto) 8.4 L [place] % (Auto) 5.9 Eos % (Auto) 0.3 Baso % (Auto) 0.3 Lymph # (Auto) 1.2 [place] # (Auto) 0.8 Eos # (Auto) 0.0 Baso # (Auto) 0.0 Abs Immat Gran (auto) 0.13 H Absolute Neuts (auto) 11.9 H Absolute Nucleated RBC 0.000 Nucleated RBC % (auto) 0.0 VBG pH 7.35 7.61 H* VBG pCO2 84 43 VBG pO2 67 134 VBG HCO3 47 H 43 H VBG O2 Saturation 89.0 99.0 VBG Base Excess 17.0 20.2 Anion Gap 16 Estim Creat Clear Calc 89.7 Estimated GFR > 60 Random Glucose 145 H Lactic Acid 0.7 Calcium 10.1 D Total Bilirubin 0.2 AST 16 ALT 21 Alkaline Phosphatase 59 B-Natriuretic Peptide 43 Total Protein 8.0 Albumin 4.0 COVID-19 (PAPO) COVID-19 Clin Com Influenza Type A (ISMAEL) Influenza Type B (ISMAEL) Influenza A & B Note 02/20/23 23:52 MCV MCH MCHC RDW Plt Count MPV Immature Gran % (Auto) Neut % (Auto) Lymph % (Auto) [place] % (Auto) Eos % (Auto) Baso % (Auto) Lymph # (Auto) [place] # (Auto) Eos # (Auto) Baso # (Auto) Abs Immat Gran (auto) Absolute Neuts (auto) Absolute Nucleated RBC Nucleated RBC % (auto) VBG pH VBG pCO2 VBG pO2 VBG HCO3 VBG O2 Saturation VBG Base Excess Anion Gap Estim Creat Clear Calc Estimated GFR Random Glucose Lactic Acid Calcium Total Bilirubin AST ALT Alkaline Phosphatase B-Natriuretic Peptide Total Protein Albumin COVID-19 (PAPO) Negative COVID-19 Clin Com See Note Influenza Type A (ISMAEL) Negative Influenza Type B (ISMAEL) Negative Influenza A & B Note See Note ECG ECG interpretation date: 02/21/23 ECG interpretation time: 04:00 Prior ECG tracings: available for review Interpretation: Sinus tachycardia at 102 bpm, normal [place] intervals, normal axis, no acute ischemic changes Imaging Radiologist's Impressions: Impressions Chest X-Ray 02/20/23 21:10 IMPRESSION: Suspect mild pulmonary vascular congestion. No pleural effusion seen. Similar findings were seen on previous study 02/02/2023. Assessment and Plan (1) Acute respiratory failure with hypoxemia: Status: Acute (2) COPD exacerbation: Status: Acute (3) Acute bronchitis: Status: Acute (4) Uncontrolled hypertension: Status: Acute Plan Patient is a 53 year old obese (BMI 39.2) female with past medical history of asthma-COPD overlap syndrome, chronic hypercarbic & hypoxic respiratory failure (on oxygen & nocturnal BiPAP), pulmonary aspergillosis, obstructive sleep apnea, obesity hypoventilation syndrome, hypertension, hyperlipidemia, and T2DM here with 1. COPD with acute exacerbation - admit and continue with BiPAP - continue scheduled Duo Nebs and Solumedrol - continue PRN Albuterol updrafts - resume Montelukast 2. Acute hypoxic respiratory failure - 2/2 COPD exacerbation - continue supplemental Oxygen - treat underlying COPD exacerbation as above 3. Acute bronchitis - she reports having a cough productive of brownish phlegm - chest x-ray though is clear - concern for underlying bronchitis - start on Azithromycin 4. Uncontrolled hypertension - BP as high as 162/84 on arrival - likely due to underlying stress due to respiratory distress - resume home anti-hypertensives (Lisinopril, Hydralazine 5. Type 2 diabetes Mellitus - continue on home dose of Lantus (35 units at bedtime) - resume Metformin ER 1000 mg bid - add insulin correction scale 6. H/O Opioid dependence - resume Methadone 50 mg once a day Total time managing care of this patient today: 75 minutes. Quality Stroke Does the patient have a stroke diagnosis?: No VTE Prior VTE?: No VTE Risk Level:: Medical - moderate - high VTE Device Contraindication: N/A - Device Ordered VTE Drug Contraindication: N/A - Med Ordered
[2023-02-21] MEDS: Azithromycin 500 MG in 0.9 % Sodium Chloride 250 ML 125 MG IV (03:37)
--- NOTE | 2023-02-21 04:43 | MHC.EDTECH ---
Patient was incont. Of a large amount of urine,patient was cleaned and luciano-care was given and bed was changed. Pure-wick placed to keep patient clean and dry. Hourly rounds and vitals completed,patients BP is elevated MAIN [place] aware. Belonging list completed and copy placed in chart,patient has 237.00 dollars, patient wants to keep at bedside,MAIN [place] witnessed. Call lu within reach
[2023-02-21] MEDS: Enoxaparin Sodium 40 MG/0.4 ML SYRINGE SUBCUT (05:58)
--- NOTE | 2023-02-21 06:20 | MHC.EDTECH ---
Hourly rounds completed,patient is sleeping at this time and call lu within reach
[2023-02-21 07:03] LABS: Mean Corpuscular HGB Conc 29.7 g/dl (31.0-35.0); Mean Corpuscular Hemoglobin 29.1 pg (27.0-33.0); Mean Corpuscular Volume 97.9 fL (80.0-98.0); Mean Platelet Volume 9.2 fL (9.4-12.3); Platelet Count 247 X10*3/uL (160-400); Red Blood Count 3.78 X10*6/uL (4.20-5.50); Red Cell Distribution Width 14.4 % (11.0-16.0); White Blood Count 12.8 X10*3/uL (4.8-10.8)
[2023-02-21 07:11] LABS: Glucose, Whole Blood 297 mg/dL (60-115)
[2023-02-21 07:16] LABS: Anion Gap 15 (12-20); Blood Urea Nitrogen 19 mg/dL (9-16); Calcium 9.5 mg/dL (8.4-10.2); Carbon Dioxide 37 mmol/L (22-29); Chloride 94 mmol/L (96-108); Creatinine Clr Calc Pharmacy 107.4; Estimated Glomerular Filt Rate > 60; Glucose Random 304 mg/dL (60-115); Potassium 4.6 mmol/L (3.3-5.1); Sodium 141 mmol/L (135-145)
--- NOTE | 2023-02-21 07:28 | PC.NURSE ---
Assumed care of pt at this time; BIPAP in place; pt 02 sat 92%. Tech assisting pt to use bedpan. Pt requesting removal of BIPAP- respiratory paged; orders to follow.
[2023-02-21] MEDS: Albuterol/Iprat 2.5/0.5MG 3 ML AMPUL.NEB INHALE ×4 (07:49→19:12)
--- NOTE | 2023-02-21 08:16 | PC.NURSE ---
Pt no longer NPO; provider placed orders for diabetic diet. Kitchen notified for insurance of tray delivery.
[2023-02-21] MEDS: Insulin Lispro 100 UNIT/ML 3 ML VIAL SUBCUT ×5 (08:39→21:17)
[2023-02-21] MEDS: methylPREDNISolone Sod Succ 125 MG/2 ML VIAL 80 MG IVPUSH ×2 (08:39→20:42)
[2023-02-21] MEDS: Docusate Sodium 100 MG CAPSULE PO ×2 (08:39→20:45)
[2023-02-21] MEDS: 0.9 % Sodium Chloride Flush 3 ML SYRINGE IVFLUSH ×2 (08:40→18:05)
--- NOTE | 2023-02-21 09:38 | PC.NURSE ---
Methadone dose verified per Shante Howe RN- verification form faxed to pharmacy- provider notified.
--- NOTE | 2023-02-21 09:45 | PHA.MEDREC ---
Pharmacy Consult ? Medication Reconciliation Pharmacy has completed the medication reconciliation. Spoke to visiting nurse Maggie ([phone]) and confirmed medication list.
--- NOTE | 2023-02-21 10:06 | HE.PHANOTE ---
re methadone verification Last dose 50 mg from [facility]. Received take home bottles for 02/19 through 03/05 to be dosed by home vna. Per the VNA her last dose administered was 02/20 @0900.
[2023-02-21] MEDS: Omeprazole 40 MG CAPSULE.DR PO (10:39)
[2023-02-21] MEDS: metFORMIN HCl ER 500 MG TAB.ER.24H 1000 MG PO ×2 (10:39→20:44)
[2023-02-21] MEDS: dilTIAZem HCL CD 180 MG CAP.ER.24H 360 MG PO (10:40)
[2023-02-21] MEDS: Furosemide 40 MG TABLET PO (10:40)
[2023-02-21] MEDS: lisinopriL 10 MG TABLET PO (10:40)
[2023-02-21] MEDS: Loratadine 10 MG TABLET PO (10:40)
[2023-02-21] MEDS: Gabapentin 300 MG CAPSULE PO ×2 (10:40→20:45)
[2023-02-21] MEDS: Folic Acid 1 MG TABLET PO (10:40)
[2023-02-21] MEDS: polyethylene glycoL 3350 17 GM POWD.PACK PO (10:42)
--- NOTE | 2023-02-21 11:01 | MHC.CM.PN ---
Addendum entered by Tawana Hernandez RN 02/21/23 11:08: CORRECTION: [employer] IS THE VNA Original Note: PATIENT LIVES WITH HER DAUGHTER, CRISTEL. SHE HAS [employer]ILY [employer] SERVICES, DAILY RN VISITS FOR METHADONE MAINTENANCE THROUGH [facility], AND HOME O2 WITH CPAP AT NIGHT [id number] THROUGH [facility], [place]. HCP IS ON FILE AND VERIFIED. REFERRAL PLACED TO [facility] FOR PATIENT'S RETURN HOME. LAST DOSE LETTER CAN BE FAXED TO [phone]. CASE MANAGEMENT FOLLOWING. PATIENT IS RE-ADMIT.
--- NOTE | 2023-02-21 11:04 | PC.NURSE ---
Delayed admin of medications secondary to not being loaded in pyxis
[2023-02-21] MEDS: buPROPion HCL 100 MG TABLET PO (11:39)
[2023-02-21] MEDS: Roflumilast 500 MCG TABLET PO (11:39)
[2023-02-21] MEDS: lamoTRIgine 100 MG TABLET PO ×2 (11:39→20:45)
[2023-02-21] MEDS: azaTHIOprine 50 MG TABLET PO (11:39)
[2023-02-21] MEDS: lamoTRIgine 25 MG TABLET 50 MG PO ×2 (11:39→20:45)
[2023-02-21] MEDS: Calcitonin,Salmon,Synth Nasal 3.7 ML BOTTLE 1 SPRAY NOSTRIL-B (11:39)
[2023-02-21] MEDS: methADONE HCl 20 MG/2 ML ORAL.CONC 50 MG PO (11:40)
[2023-02-21] MEDS: Lidocaine 4 % Patch ADH..PATCH 1 PATCH TRANSDERMA (11:40)
[2023-02-21 12:16] LABS: Glucose, Whole Blood 347 mg/dL (60-115)
[2023-02-21] MEDS: hydrALAZINE HCl 25 MG TABLET PO ×2 (12:43→18:04)
--- NOTE | 2023-02-21 16:38 | PM.EVENT ---
Event Note Date of Service: 02/22/23 Event Note: Seen and examined at bedside, admitted with another episode of exacerbation of copd/asthm overlap syndrome and required bipapa 53 year old obese (BMI 39.2) female with past medical history of asthma-COPD overlap syndrome, chronic hypercarbic & hypoxic respiratory failure (on oxygen & nocturnal BiPAP), pulmonary aspergillosis, obstructive sleep apnea, obesity hypoventilation syndrome, hypertension, hyperlipidemia, and T2DM here with 1. COPD with acute exacerbation, continue inhalers, iv sterod, bipap at night and PRN during the day, O2 goal of 88 to 92 2. Acute on chronic hypoxic respiratory failure d/t above 3. Acute bronchitis, Azithromycin 4. Uncontrolled hypertension, resume home meds and if persistent adjust meds 5. Type 2 diabetes Mellitus with hyperglycemia, with hyperglycemia, continue Lantus, humalog and Metformin. Hyperglycemia worse with steroid 6. H/O Opioid dependence, continue Methadone 50 mg/daily - Time Spent With Patient Time: Total time managing care of this patient today ____ minutes.
[2023-02-21 17:34] LABS: Glucose, Whole Blood 303 mg/dL (60-115)
[2023-02-21] MEDS: Budesonide 0.5 MG/2 ML AMPUL.NEB INHALE (19:12)
[2023-02-21] MEDS: Atorvastatin Calcium 20 MG TABLET PO (20:45)
[2023-02-21] MEDS: Montelukast Sodium 10 MG TABLET PO (20:45)
[2023-02-21 20:53] LABS: Glucose, Whole Blood 243 mg/dL (60-115)
[2023-02-21] MEDS: Insulin Glargine,Hum.rec.anlog 100 UNIT/ML 10 ML VIAL 35 UNIT SUBCUT (21:17)
[2023-02-21] MEDS: clonazePAM 1 MG TABLET PO (23:05)
[2023-02-22] VITALS (13 sets, daily range): BP systolic 110–147; BP diastolic 55–83; PULSE 81–121; RESP 16–20; TEMP 35.5–36.3; O2SAT 90–98; BMI 38.1
[2023-02-22] MEDS: 0.9 % Sodium Chloride Flush 3 ML SYRINGE IVFLUSH ×4 (00:27→21:35)
[2023-02-22] MEDS: Enoxaparin Sodium 40 MG/0.4 ML SYRINGE SUBCUT (06:06)
[2023-02-22] MEDS: Omeprazole 40 MG CAPSULE.DR PO (06:07)
[2023-02-22] MEDS: Albuterol/Iprat 2.5/0.5MG 3 ML AMPUL.NEB INHALE ×4 (06:40→18:37)
[2023-02-22] MEDS: Budesonide 0.5 MG/2 ML AMPUL.NEB INHALE ×2 (06:40→18:37)
[2023-02-22 07:14] LABS: Glucose, Whole Blood 279 mg/dL (60-115)
[2023-02-22] MEDS: methylPREDNISolone Sod Succ 125 MG/2 ML VIAL 80 MG IVPUSH (07:57)
[2023-02-22] MEDS: Insulin Lispro 100 UNIT/ML 3 ML VIAL SUBCUT ×8 (07:57→21:29)
[2023-02-22] MEDS: methADONE HCl 20 MG/2 ML ORAL.CONC 50 MG PO (07:58)
[2023-02-22] MEDS: metFORMIN HCl ER 500 MG TAB.ER.24H 1000 MG PO ×2 (07:59→21:30)
[2023-02-22] MEDS: lamoTRIgine 25 MG TABLET 50 MG PO ×2 (07:59→21:30)
[2023-02-22] MEDS: Gabapentin 300 MG CAPSULE PO ×2 (08:00→21:29)
[2023-02-22] MEDS: dilTIAZem HCL CD 180 MG CAP.ER.24H 360 MG PO (08:00)
[2023-02-22] MEDS: Docusate Sodium 100 MG CAPSULE PO (08:00)
[2023-02-22] MEDS: lisinopriL 10 MG TABLET PO (08:00)
[2023-02-22] MEDS: hydrALAZINE HCl 25 MG TABLET PO ×3 (08:00→17:28)
[2023-02-22] MEDS: Roflumilast 500 MCG TABLET PO (08:00)
[2023-02-22] MEDS: Loratadine 10 MG TABLET PO (08:00)
[2023-02-22] MEDS: Folic Acid 1 MG TABLET PO (08:00)
[2023-02-22] MEDS: Azithromycin 500 MG TABLET PO (08:01)
[2023-02-22] MEDS: lamoTRIgine 100 MG TABLET PO ×2 (08:01→21:30)
[2023-02-22] MEDS: Furosemide 40 MG TABLET PO (08:01)
[2023-02-22] MEDS: Tiotropium Bromide 2.5 mcg 1 PUFF/2.5 MCG MIST.INHAL 2 PUFF INHALE (09:11)
[2023-02-22 11:18] LABS: Glucose, Whole Blood 260 mg/dL (60-115)
--- NOTE | 2023-02-22 12:02 | P.PNIM_ITS ---
Subjective Subjective Date of Service: 02/22/23 Interval History: She is feeling better, she says she probably got sick from her grandchildren that had the cold Physical Exam 2 Vital Signs: Vital Signs: Last Vital Signs Temp 97.4 F 02/22/23 11:30 Pulse 103 H 02/22/23 11:30 Resp 18 02/22/23 11:30 BP 115/60 02/22/23 11:30 Pulse Ox 98 02/22/23 11:30 O2 Del Method Nasal Cannula 02/22/23 11:30 O2 Flow Rate 2 02/22/23 11:30 BMI result Body Mass Index 38.1 Const: Other: General: AO X 3, no acute distress Resp: Diminished sounds bilaterally, mild wob but better than yest CVS: S1,S2,RRR GI: +BS, NT, no distention Skin: No rash Neuro: motor grossly intact Psych: appropriate affect Objective Data Active Medications Acetaminophen (Acetaminophen 325 Mg Tablet) 650 mg PO Q6H PRN PRN Reason: Pain, Mild (Pain Scale 1-3) Al Hydroxide/Mg Hydroxide (Magnesium Hydrox/Alum Hydrox 30 Ml Oral.Susp) 30 ml PO Q4H PRN PRN Reason: Heartburn/Nausea Albuterol Sulfate (Albuterol Sulfate (0.083%) 2.5 Mg/3 Ml Vial.Neb) 2.5 mg INHALE Q4H PRN PRN Reason: Shortness of Breath/Wheezing Albuterol/Ipratropium (Albuterol/Iprat 2.5/0.5mg 3 Ml Ampul.Neb) 3 ml INHALE RQID [facility] Last Admin: 02/22/23 11:23 Dose: 3 ml Documented By: KAREN Atorvastatin Calcium (Atorvastatin Calcium 20 Mg Tablet) 20 mg PO BEDTIME [facility] Last Admin: 02/21/23 20:45 Dose: 20 mg Documented By: NAYE Azathioprine (Azathioprine 50 Mg Tablet) 50 mg PO DAILY [facility] Last Admin: 02/21/23 11:39 Dose: 50 mg Documented By: CHAPARRO Azithromycin (Azithromycin 500 Mg Tablet) 500 mg PO DAILY [facility] Stop: 02/26/23 08:59 Last Admin: 02/22/23 08:01 Dose: 500 mg Documented By: NATALIA Budesonide (Budesonide 0.5 Mg/2 Ml Ampul.Neb) 0.5 mg INHALE BID [facility] Last Admin: 02/22/23 06:40 Dose: 0.5 mg Documented By: TIO Bupropion HCl (Bupropion Hcl 100 Mg Tablet) 100 mg PO DAILY [facility] Last Admin: 02/22/23 08:14 Dose: Not Given Documented By: NATALIA Non-Admin Reason: Patient Refused Calcitonin [place] (Calcitonin,[place],Synth Nasal 3.7 Ml Bottle) 1 spray NOSTRIL-B DAILY [facility] Last Admin: 02/22/23 11:40 Dose: Not Given Documented By: NATALIA Non-Admin Reason: Patient Refused Clonazepam (Clonazepam 1 Mg Tablet) 1 mg PO BID PRN PRN Reason: Anxiety Last Admin: 02/21/23 23:05 Dose: 1 mg Documented By: NAYE Dextrose (Dextrose 50 % 25 Gm/50 Ml Syringe) 25 gm IVPUSH Q15M PRN; Protocol PRN Reason: per Hypoglycemia Standing Ord. Diltiazem HCl (Diltiazem Hcl Cd 180 Mg Cap.Er.24h) 360 mg PO DAILY [facility]; Protocol Last Admin: 02/22/23 08:00 Dose: 360 mg Documented By: NATALIA Docusate Sodium (Docusate Sodium 100 Mg Capsule) 100 mg PO BID [facility] Last Admin: 02/22/23 08:00 Dose: 100 mg Documented By: NATALIA Docusate Sodium (Docusate Sodium 100 Mg Capsule) 100 mg PO BID PRN PRN Reason: constipation Enoxaparin Sodium (Enoxaparin Sodium 40 Mg/0.4 Ml Syringe) 40 mg SUBCUT Q24H [facility] Last Admin: 02/22/23 06:06 Dose: 40 mg Documented By: THADDEUS Folic Acid (Folic Acid 1 Mg Tablet) 1 mg PO DAILY [facility] Last Admin: 02/22/23 08:00 Dose: 1 mg Documented By: NATALIA Furosemide (Furosemide 40 Mg Tablet) 40 mg PO DAILY [facility]; Protocol Last Admin: 02/22/23 08:01 Dose: 40 mg Documented By: NATALIA Gabapentin (Gabapentin 300 Mg Capsule) 300 mg PO BID [facility] Last Admin: 02/22/23 08:00 Dose: 300 mg Documented By: NATALIA Glucose (Glucose Gel 15 Gm Gel..Gram.) 15 gm PO Q15M PRN; Protocol PRN Reason: per Hypoglycemia Standing Ord. Hydralazine HCl (Hydralazine Hcl 25 Mg Tablet) 25 mg PO TIDWM [facility]; Protocol Last Admin: 02/22/23 11:37 Dose: 25 mg Documented By: NATALIA Insulin Glargine (Insulin Glargine,Hum.Rec.Anlog 100 Unit/Ml 10 Ml Vial) 35 unit SUBCUT BEDTIME [facility] Last Admin: 02/21/23 21:17 Dose: 35 unit Documented By: NAYE Insulin Human Lispro (Insulin Lispro 100 Unit/Ml 3 Ml Vial) 0 unit SUBCUT QIDACHS [facility]; Protocol Last Admin: 02/22/23 07:58 Dose: 6 unit Documented By: NATALIA Insulin Human Lispro (Insulin Lispro 100 Unit/Ml 3 Ml Vial) 4 unit SUBCUT QIDACHS [facility] Last Admin: 02/22/23 07:57 Dose: 4 unit Documented By: NATALIA Lactic Acid (Ammonium Lactate 12 % Lotion 226 Gm Bottle) 1 appl TOPICAL DAILY PRN; Protocol PRN Reason: Rash Lamotrigine (Lamotrigine 100 Mg Tablet) 100 mg PO BID [facility] Last Admin: 02/22/23 08:01 Dose: 100 mg Documented By: NATALIA Lamotrigine (Lamotrigine 25 Mg Tablet) 50 mg PO BID [facility] Last Admin: 02/22/23 07:59 Dose: 50 mg Documented By: NATALIA Lidocaine (Lidocaine 4 % Patch Adh..Patch) 1 patch TRANSDERMA DAILY [facility] Last Admin: 02/22/23 07:59 Dose: 1 patch Documented By: NATALIA Lisinopril (Lisinopril 10 Mg Tablet) 10 mg PO DAILY [facility]; Protocol Last Admin: 02/22/23 08:00 Dose: 10 mg Documented By: NATALIA Loratadine (Loratadine 10 Mg Tablet) 10 mg PO DAILY [facility] Last Admin: 02/22/23 08:00 Dose: 10 mg Documented By: NATALIA Melatonin (Melatonin 3 Mg Tablet) 6 mg PO BEDTIME PRN PRN Reason: Insomnia Metformin HCl (Metformin Hcl Er 500 Mg Tab.Er.24h) 1,000 mg PO BID [facility] Last Admin: 02/22/23 07:59 Dose: 1,000 mg Documented By: NATALIA Methadone HCl (Methadone Hcl 20 Mg/2 Ml Oral.Conc) 50 mg PO DAILY [facility] Last Admin: 02/22/23 07:58 Dose: 50 mg Documented By: NATALIA Methylprednisolone Sodium Succinate (Methylprednisolone Sod Succ 125 Mg/2 Ml Vial) 80 mg IVPUSH RBID [facility] Last Admin: 02/22/23 07:57 Dose: 80 mg Documented By: NATALIA Montelukast Sodium (Montelukast Sodium 10 Mg Tablet) 10 mg PO BEDTIME [facility] Last Admin: 02/21/23 20:45 Dose: 10 mg Documented By: NAYE Morphine Sulfate (Morphine Sulfate 4 Mg/Ml Cartridge) 2 mg IVPUSH Q4H PRN; Protocol PRN Reason: Pain, Severe (Pain Scale 7-10) Nitroglycerin (Nitroglycerin 0.4 Mg Tab.Subl) 0.4 mg SUBLINGUAL Q5MX3 PRN PRN Reason: Chest Pain Non-Formulary Medication (Arformoterol [Brovana]) 2 ml INHALE Q12H [facility] Non-Formulary Medication (Cholecalciferol (Vitamin D3)) 1,250 mcg PO WE@0900 [facility] Non-Formulary Medication (Diclofenac Potassium) 50 mg PO TID PRN PRN Reason: Pain Non-Formulary Medication (Sodium Chloride) 4 ml INHALE BID [facility] Omeprazole (Omeprazole 40 Mg Capsule.Dr) 40 mg PO DAILY@0630 [facility] Last Admin: 02/22/23 06:07 Dose: 40 mg Documented By: THADDEUS Ondansetron HCl (Ondansetron Hcl 4 Mg/2 Ml Vial) 4 mg IVPUSH Q8H PRN PRN Reason: Nausea and Vomiting Polyethylene Glycol (Polyethylene Glycol 3350 17 Gm Powd.Pack) 17 gm PO DAILY [facility] Last Admin: 02/22/23 08:15 Dose: Not Given Documented By: NATALIA Non-Admin Reason: Patient Refused Roflumilast (Roflumilast 500 Mcg Tablet) 500 mcg PO DAILY [facility] Last Admin: 02/22/23 08:00 Dose: 500 mcg Documented By: NATALIA Salmeterol Xinafoate (Salmeterol Xinafoate 50 Mcg Blst.W.Dev) 1 puff INHALE BID [facility] Last Admin: 02/21/23 19:19 Dose: Not Given Documented By: RAFAEL Non-Admin Reason: Med Not Available Senna (Sennosides 8.6 Mg Tablet) 17.2 mg PO BEDTIME PRN PRN Reason: Constipation Simethicone (Simethicone 80 Mg Tab.Chew) 80 mg PO QIDWMHS PRN PRN Reason: Abdominal Distention Sodium Chloride (0.9 % Sodium Chloride Flush 3 Ml Syringe) 3 ml IVFLUSH QSHIFT [facility] Last Admin: 02/22/23 07:58 Dose: 3 ml Documented By: NTAALIA Tiotropium [place] (Tiotropium [place] 2.5 Mcg 1 Puff/2.5 Mcg Mist.Inhal) 2 puff INHALE DAILY [facility] Last Admin: 02/22/23 09:11 Dose: 2 puff Documented By: KAREN Voriconazole (Voriconazole 200 Mg Tablet) 200 mg PO Q12H [facility] Last Admin: 02/22/23 11:32 Dose: 200 mg Documented By: NATALIA Zolpidem Tartrate (Zolpidem Tartrate 5 Mg Tablet) 5 mg PO BEDTIME PRN PRN Reason: Sleep Labs 02/21/23 06:43 02/21/23 06:43 Labs: Laboratory Results - last 24 hr 02/21/23 02/21/23 02/21/23 12:09 17:30 20:42 POC Glucose 347 H 303 H 243 H 02/22/23 02/22/23 07:10 11:14 POC Glucose 279 H 260 H Microbiology Microbiology Results: Microbiology 02/20/23 22:23 Blood Culture - Preliminary Blood - Venous No growth after 24 hours. 02/20/23 21:14 Blood Culture - Preliminary Blood - Venous No growth after 24 hours. Assessment and Plan (1) Acute bronchitis: Status: Acute (2) Acute respiratory failure with hypoxemia: Status: Acute (3) COPD exacerbation: Status: Acute Plan 53 year old obese (BMI 39.2) female with past medical history of asthma-COPD overlap syndrome, chronic hypercarbic & hypoxic respiratory failure (on oxygen & nocturnal BiPAP), pulmonary aspergillosis, obstructive sleep apnea, obesity hypoventilation syndrome, hypertension, hyperlipidemia, and T2DM here with 1. COPD with acute exacerbation, on top of chronic respriatory failure -continue inhalers, iv sterod (reduce solumedrol to 40 bid), bipap at night and PRN during the day, O2 goal of 88 to 92, cough med PRN 2. Acute on chronic hypoxic respiratory failure d/t above, improving 3. Acute bronchitis, Azithromycin 4.hypertension, BP normal on home meds 5. Type 2 diabetes Mellitus with hyperglycemia, a, continue Lantus, humalog and Metformin. Hyperglycemia in part due to steroid 6. H/O Opioid dependence, continue Methadone 50 mg/daily full code dvt p lovenox need for inpt: giving severe exacerbation of copd wth hypoxia with advance lung disease with frequent hospitalization need close monitoring, iv steroid Quality Stroke Does the patient have a stroke diagnosis?: No VTE Prior VTE?: No VTE Risk Level:: Medical - moderate - high VTE Device Contraindication: N/A - Device Ordered VTE Drug Contraindication: N/A - Med Ordered
[2023-02-22] MEDS: azaTHIOprine 50 MG TABLET PO (14:35)
[2023-02-22] MEDS: Ammonium Lactate 12 % Lotion 226 GM BOTTLE 1 APPL TOPICAL (14:38)
[2023-02-22 17:08] LABS: Glucose, Whole Blood 218 mg/dL (60-115)
[2023-02-22 21:17] LABS: Glucose, Whole Blood 203 mg/dL (60-115)
[2023-02-22] MEDS: methylPREDNISolone Sod Succ 125 MG/2 ML VIAL 40 MG IVPUSH (21:28)
[2023-02-22] MEDS: Montelukast Sodium 10 MG TABLET PO (21:29)
[2023-02-22] MEDS: Insulin Glargine,Hum.rec.anlog 100 UNIT/ML 10 ML VIAL 35 UNIT SUBCUT (21:29)
[2023-02-22] MEDS: Atorvastatin Calcium 20 MG TABLET PO (21:30)
[2023-02-23] VITALS (14 sets, daily range): BP systolic 115–162; BP diastolic 74–96; PULSE 95–119; RESP 18–21; TEMP 35.5–36.7; O2SAT 91–98; BMI 38.8
[2023-02-23] MEDS: Albuterol Sulfate (0.083%) 2.5 MG/3 ML VIAL.NEB INHALE (01:13)
[2023-02-23] MEDS: Omeprazole 40 MG CAPSULE.DR PO (06:09)
[2023-02-23] MEDS: Enoxaparin Sodium 40 MG/0.4 ML SYRINGE SUBCUT (06:09)
[2023-02-23 07:36] LABS: Glucose, Whole Blood 215 mg/dL (60-115)
[2023-02-23] MEDS: Tiotropium Bromide 2.5 mcg 1 PUFF/2.5 MCG MIST.INHAL 2 PUFF INHALE (07:48)
[2023-02-23] MEDS: Albuterol/Iprat 2.5/0.5MG 3 ML AMPUL.NEB INHALE ×4 (07:48→19:35)
[2023-02-23] MEDS: Budesonide 0.5 MG/2 ML AMPUL.NEB INHALE ×2 (07:48→19:35)
[2023-02-23] MEDS: Insulin Lispro 100 UNIT/ML 3 ML VIAL SUBCUT ×8 (08:33→22:20)
[2023-02-23] MEDS: lamoTRIgine 100 MG TABLET PO ×2 (08:38→20:05)
[2023-02-23] MEDS: dilTIAZem HCL CD 180 MG CAP.ER.24H 360 MG PO (08:38)
[2023-02-23] MEDS: Loratadine 10 MG TABLET PO (08:38)
[2023-02-23] MEDS: lamoTRIgine 25 MG TABLET 50 MG PO ×2 (08:38→20:05)
[2023-02-23] MEDS: Roflumilast 500 MCG TABLET PO (08:38)
[2023-02-23] MEDS: lisinopriL 10 MG TABLET PO (08:38)
[2023-02-23] MEDS: methADONE HCl 20 MG/2 ML ORAL.CONC 50 MG PO (08:39)
[2023-02-23] MEDS: Gabapentin 300 MG CAPSULE PO ×2 (08:39→20:05)
[2023-02-23] MEDS: hydrALAZINE HCl 25 MG TABLET PO ×3 (08:39→16:55)
[2023-02-23] MEDS: metFORMIN HCl ER 500 MG TAB.ER.24H 1000 MG PO (08:39)
[2023-02-23] MEDS: Furosemide 40 MG TABLET PO (08:39)
[2023-02-23] MEDS: azaTHIOprine 50 MG TABLET PO (08:39)
[2023-02-23] MEDS: Folic Acid 1 MG TABLET PO (08:39)
[2023-02-23] MEDS: Calcitonin,Salmon,Synth Nasal 3.7 ML BOTTLE 1 SPRAY NOSTRIL-B (08:39)
[2023-02-23] MEDS: Azithromycin 500 MG TABLET PO (08:39)
[2023-02-23] MEDS: methylPREDNISolone Sod Succ 125 MG/2 ML VIAL 40 MG IVPUSH ×2 (08:39→20:06)
[2023-02-23] MEDS: 0.9 % Sodium Chloride Flush 3 ML SYRINGE IVFLUSH ×3 (08:48→20:06)
[2023-02-23 09:28] LABS: Hematocrit 39.7 % (37.0-47.0); Hemoglobin 12.1 g/dl (12.0-16.0); Mean Corpuscular HGB Conc 30.5 g/dl (31.0-35.0); Mean Corpuscular Hemoglobin 29.7 pg (27.0-33.0); Mean Corpuscular Volume 97.3 fL (80.0-98.0); Mean Platelet Volume 9.4 fL (9.4-12.3); NRBC Pct Auto 0.2 /100WBC (0.0-0.2); Platelet Count 314 X10*3/uL (160-400); Red Blood Count 4.08 X10*6/uL (4.20-5.50); Red Cell Distribution Width 14.1 % (11.0-16.0); White Blood Count 19.5 X10*3/uL (4.8-10.8)
[2023-02-23 09:36] LABS: Anion Gap 18 (12-20); Blood Urea Nitrogen 34 mg/dL (9-16); Calcium 10.2 mg/dL (8.4-10.2); Carbon Dioxide 37 mmol/L (22-29); Chloride 92 mmol/L (96-108); Estimated Glomerular Filt Rate > 60; Glucose Random 215 mg/dL (60-115); Magnesium 1.9 mg/dL (1.6-2.6); Potassium 4.1 mmol/L (3.3-5.1); Sodium 143 mmol/L (135-145)
--- NOTE | 2023-02-23 10:32 | HO.PM.IMPN ---
Subjective Subjective Date of Service: 02/23/23 Interval History: I feel better than yesterday, WBC is higher d/t steroid Physical Exam Vital Signs: Vital Signs: Last Vital Signs Temp 97.1 F 02/23/23 08:00 Pulse 101 H 02/23/23 08:00 Resp 20 02/23/23 08:00 BP 161/91 H 02/23/23 08:00 Pulse Ox 94 02/23/23 08:00 O2 Del Method Nasal Cannula 02/23/23 08:00 O2 Flow Rate 2.5 02/23/23 08:00 FiO2 25 02/23/23 03:35 BMI result Body Mass Index 38.8 Const: Other: General: AO X 3, no acute distress Resp: Diminished sounds bilaterally, no wheezing CVS: S1,S2,RRR GI: +BS, NT, no distention Skin: No rash Neuro: motor grossly intact Psych: appropriate affect Objective Data Active Medications Acetaminophen (Acetaminophen 325 Mg Tablet) 650 mg PO Q6H PRN PRN Reason: Pain, Mild (Pain Scale 1-3) Al Hydroxide/Mg Hydroxide (Magnesium Hydrox/Alum Hydrox 30 Ml Oral.Susp) 30 ml PO Q4H PRN PRN Reason: Heartburn/Nausea Albuterol Sulfate (Albuterol Sulfate (0.083%) 2.5 Mg/3 Ml Vial.Neb) 2.5 mg INHALE Q4H PRN PRN Reason: Shortness of Breath/Wheezing Last Admin: 02/23/23 01:13 Dose: 2.5 mg Documented By: TIO Albuterol/Ipratropium (Albuterol/Iprat 2.5/0.5mg 3 Ml Ampul.Neb) 3 ml INHALE RQID [facility] Last Admin: 02/23/23 07:48 Dose: 3 ml Documented By: WILLIAM Atorvastatin Calcium (Atorvastatin Calcium 20 Mg Tablet) 20 mg PO BEDTIME [facility] Last Admin: 02/22/23 21:30 Dose: 20 mg Documented By: NEELAM Azathioprine (Azathioprine 50 Mg Tablet) 50 mg PO DAILY [facility] Last Admin: 02/23/23 08:39 Dose: 50 mg Documented By: DOMINIK Azithromycin (Azithromycin 500 Mg Tablet) 500 mg PO DAILY [facility] Stop: 02/26/23 08:59 Last Admin: 02/23/23 08:39 Dose: 500 mg Documented By: DOMINIK Budesonide (Budesonide 0.5 Mg/2 Ml Ampul.Neb) 0.5 mg INHALE BID [facility] Last Admin: 02/23/23 07:48 Dose: 0.5 mg Documented By: WILLIAM Bupropion HCl (Bupropion Hcl 100 Mg Tablet) 100 mg PO DAILY [facility] Last Admin: 02/23/23 08:49 Dose: Not Given Documented By: DOMINIK Non-Admin Reason: Patient Refused Calcitonin [place] (Calcitonin,[place],Synth Nasal 3.7 Ml Bottle) 1 spray NOSTRIL-B DAILY [facility] Last Admin: 02/23/23 08:39 Dose: 1 spray Documented By: DOMINIK Clonazepam (Clonazepam 1 Mg Tablet) 1 mg PO BID PRN PRN Reason: Anxiety Last Admin: 02/21/23 23:05 Dose: 1 mg Documented By: NAYE Dextrose (Dextrose 50 % 25 Gm/50 Ml Syringe) 25 gm IVPUSH Q15M PRN; Protocol PRN Reason: per Hypoglycemia Standing Ord. Diltiazem HCl (Diltiazem Hcl Cd 180 Mg Cap.Er.24h) 360 mg PO DAILY [facility]; Protocol Last Admin: 02/23/23 08:38 Dose: 360 mg Documented By: DOMINIK Docusate Sodium (Docusate Sodium 100 Mg Capsule) 100 mg PO BID [facility] Last Admin: 02/23/23 08:49 Dose: Not Given Documented By: DOMINIK Non-Admin Reason: Patient Refused Docusate Sodium (Docusate Sodium 100 Mg Capsule) 100 mg PO BID PRN PRN Reason: constipation Enoxaparin Sodium (Enoxaparin Sodium 40 Mg/0.4 Ml Syringe) 40 mg SUBCUT Q24H [facility] Last Admin: 02/23/23 06:09 Dose: 40 mg Documented By: NEELAM Folic Acid (Folic Acid 1 Mg Tablet) 1 mg PO DAILY [facility] Last Admin: 02/23/23 08:39 Dose: 1 mg Documented By: DOMINIK Furosemide (Furosemide 40 Mg Tablet) 40 mg PO DAILY [facility]; Protocol Last Admin: 02/23/23 08:39 Dose: 40 mg Documented By: DOMINIK Gabapentin (Gabapentin 300 Mg Capsule) 300 mg PO BID [facility] Last Admin: 02/23/23 08:39 Dose: 300 mg Documented By: DOMINIK Glucose (Glucose Gel 15 Gm Gel..Gram.) 15 gm PO Q15M PRN; Protocol PRN Reason: per Hypoglycemia Standing Ord. Hydralazine HCl (Hydralazine Hcl 25 Mg Tablet) 25 mg PO TIDWM [facility]; Protocol Last Admin: 02/23/23 08:39 Dose: 25 mg Documented By: DOMINIK Insulin Glargine (Insulin Glargine,Hum.Rec.Anlog 100 Unit/Ml 10 Ml Vial) 35 unit SUBCUT BEDTIME [facility] Last Admin: 02/22/23 21:29 Dose: 35 unit Documented By: NEELAM Insulin Human Lispro (Insulin Lispro 100 Unit/Ml 3 Ml Vial) 0 unit SUBCUT QIDACHS [facility]; Protocol Last Admin: 02/23/23 08:34 Dose: 4 unit Documented By: DOMINIK Insulin Human Lispro (Insulin Lispro 100 Unit/Ml 3 Ml Vial) 4 unit SUBCUT QIDACHS [facility] Last Admin: 02/23/23 08:33 Dose: 4 unit Documented By: DOMINIK Lactic Acid (Ammonium Lactate 12 % Lotion 226 Gm Bottle) 1 appl TOPICAL DAILY PRN; Protocol PRN Reason: Rash Last Admin: 02/22/23 14:38 Dose: 1 appl Documented By: NATALIA Lamotrigine (Lamotrigine 100 Mg Tablet) 100 mg PO BID [facility] Last Admin: 02/23/23 08:38 Dose: 100 mg Documented By: DOMINIK Lamotrigine (Lamotrigine 25 Mg Tablet) 50 mg PO BID [facility] Last Admin: 02/23/23 08:38 Dose: 50 mg Documented By: DOMINIK Lidocaine (Lidocaine 4 % Patch Adh..Patch) 1 patch TRANSDERMA DAILY [facility] Last Admin: 02/23/23 08:49 Dose: Not Given Documented By: DOMINIK Non-Admin Reason: Patient Refused Lisinopril (Lisinopril 10 Mg Tablet) 10 mg PO DAILY [facility]; Protocol Last Admin: 02/23/23 08:38 Dose: 10 mg Documented By: DOMINIK Loratadine (Loratadine 10 Mg Tablet) 10 mg PO DAILY [facility] Last Admin: 02/23/23 08:38 Dose: 10 mg Documented By: DOMINIK Melatonin (Melatonin 3 Mg Tablet) 6 mg PO BEDTIME PRN PRN Reason: Insomnia Metformin HCl (Metformin Hcl Er 500 Mg Tab.Er.24h) 1,000 mg PO BID [facility] Last Admin: 02/23/23 08:39 Dose: 1,000 mg Documented By: DOMINIK Methadone HCl (Methadone Hcl 20 Mg/2 Ml Oral.Conc) 50 mg PO DAILY [facility] Last Admin: 02/23/23 08:39 Dose: 50 mg Documented By: DOMINIK Methylprednisolone Sodium Succinate (Methylprednisolone Sod Succ 125 Mg/2 Ml Vial) 40 mg IVPUSH RBID [facility] Last Admin: 02/23/23 08:39 Dose: 40 mg Documented By: DOMINIK Montelukast Sodium (Montelukast Sodium 10 Mg Tablet) 10 mg PO BEDTIME [facility] Last Admin: 02/22/23 21:29 Dose: 10 mg Documented By: NEELAM Morphine Sulfate (Morphine Sulfate 4 Mg/Ml Cartridge) 2 mg IVPUSH Q4H PRN; Protocol PRN Reason: Pain, Severe (Pain Scale 7-10) Nitroglycerin (Nitroglycerin 0.4 Mg Tab.Subl) 0.4 mg SUBLINGUAL Q5MX3 PRN PRN Reason: Chest Pain Non-Formulary Medication (Arformoterol [Brovana]) 2 ml INHALE Q12H [facility] Non-Formulary Medication (Cholecalciferol (Vitamin D3)) 1,250 mcg PO WE@0900 [facility] Non-Formulary Medication (Diclofenac Potassium) 50 mg PO TID PRN PRN Reason: Pain Non-Formulary Medication (Sodium Chloride) 4 ml INHALE BID [facility] Omeprazole (Omeprazole 40 Mg Capsule.Dr) 40 mg PO DAILY@0630 [facility] Last Admin: 02/23/23 06:09 Dose: 40 mg Documented By: NEELAM Ondansetron HCl (Ondansetron Hcl 4 Mg/2 Ml Vial) 4 mg IVPUSH Q8H PRN PRN Reason: Nausea and Vomiting Polyethylene Glycol (Polyethylene Glycol 3350 17 Gm Powd.Pack) 17 gm PO DAILY [facility] Last Admin: 02/23/23 08:49 Dose: Not Given Documented By: DOMINIK Non-Admin Reason: Patient Refused Roflumilast (Roflumilast 500 Mcg Tablet) 500 mcg PO DAILY [facility] Last Admin: 02/23/23 08:38 Dose: 500 mcg Documented By: DOMINIK Salmeterol Xinafoate (Salmeterol Xinafoate 50 Mcg Blst.W.Dev) 1 puff INHALE BID [facility] Last Admin: 02/21/23 19:19 Dose: Not Given Documented By: RAFAEL Non-Admin Reason: Med Not Available Senna (Sennosides 8.6 Mg Tablet) 17.2 mg PO BEDTIME PRN PRN Reason: Constipation Simethicone (Simethicone 80 Mg Tab.Chew) 80 mg PO QIDWMHS PRN PRN Reason: Abdominal Distention Sodium Chloride (0.9 % Sodium Chloride Flush 3 Ml Syringe) 3 ml IVFLUSH QSHIFT [facility] Last Admin: 02/23/23 08:48 Dose: 3 ml Documented By: DOMINIK Tiotropium [place] (Tiotropium [place] 2.5 Mcg 1 Puff/2.5 Mcg Mist.Inhal) 2 puff INHALE DAILY [facility] Last Admin: 02/23/23 07:48 Dose: 2 puff Documented By: WILLIAM Voriconazole (Voriconazole 200 Mg Tablet) 200 mg PO Q12H [facility] Last Admin: 02/22/23 21:30 Dose: 200 mg Documented By: NEELAM Zolpidem Tartrate (Zolpidem Tartrate 5 Mg Tablet) 5 mg PO BEDTIME PRN PRN Reason: Sleep Labs 02/23/23 08:08 02/23/23 08:08 Labs: Laboratory Results - last 24 hr 02/22/23 02/22/23 02/22/23 11:14 17:04 21:14 MCV MCH MCHC RDW Plt Count MPV Absolute Nucleated RBC Nucleated RBC % (auto) Anion Gap Estim Creat Clear Calc Estimated GFR POC Glucose 260 H 218 H 203 H Random Glucose Calcium Magnesium 02/23/23 02/23/23 07:30 08:08 MCV 97.3 MCH 29.7 MCHC 30.5 L RDW 14.1 Plt Count 314 D MPV 9.4 Absolute Nucleated RBC 0.040 H Nucleated RBC % (auto) 0.2 Anion Gap 18 Estim Creat Clear Calc 96.0 Estimated GFR > 60 POC Glucose 215 H Random Glucose 215 H Calcium 10.2 D Magnesium 1.9 Microbiology Microbiology Results: Microbiology 02/20/23 22:23 Blood Culture - Preliminary Blood - Venous No growth after 48 hours. 02/20/23 21:14 Blood Culture - Preliminary Blood - Venous No growth after 48 hours. Assessment and Plan (1) Acute bronchitis: Status: Acute (2) Acute respiratory failure with hypoxemia: Status: Acute (3) COPD exacerbation: Status: Acute Plan 53 year old obese (BMI 39.2) female with past medical history of asthma-COPD overlap syndrome, chronic hypercarbic & hypoxic respiratory failure (on oxygen & nocturnal BiPAP), pulmonary aspergillosis, obstructive sleep apnea, obesity hypoventilation syndrome, hypertension, hyperlipidemia, and T2DM here with 1. COPD with acute exacerbation, on top of chronic respriatory failure -continue inhalers, iv sterod, change to Prednisone tomorrow, bipap at night and PRN during the day, O2 goal of 88 to 92, cough med PRN 2. Acute on chronic hypoxic respiratory failure d/t above, improving 3. Acute bronchitis, Azithromycin 4.hypertension, BP normal on home meds 5. Type 2 diabetes Mellitus with hyperglycemia, a, continue Lantus, humalog and Metformin. Hyperglycemia in part due to steroid 6. H/O Opioid dependence, continue Methadone 50 mg/daily 7. Leukocytosis, reactive due to steroid, monitor full code dvt p lovenox need for inpt: giving severe exacerbation of copd wth hypoxia with advance lung disease with frequent hospitalization need close monitoring, iv steroid Quality Stroke Does the patient have a stroke diagnosis?: No VTE Prior VTE?: No VTE Risk Level:: Medical - moderate - high VTE Device Contraindication: N/A - Device Ordered VTE Drug Contraindication: N/A - Med Ordered
[2023-02-23 11:34] LABS: Glucose, Whole Blood 252 mg/dL (60-115)
[2023-02-23] MEDS: Ammonium Lactate 12 % Lotion 226 GM BOTTLE 1 APPL TOPICAL (11:58)
[2023-02-23 16:32] LABS: Glucose, Whole Blood 209 mg/dL (60-115)
[2023-02-23] MEDS: Atorvastatin Calcium 20 MG TABLET PO (20:05)
[2023-02-23] MEDS: Montelukast Sodium 10 MG TABLET PO (20:06)
[2023-02-23 21:12] LABS: Glucose, Whole Blood 237 mg/dL (60-115)
[2023-02-23] MEDS: Insulin Glargine,Hum.rec.anlog 100 UNIT/ML 10 ML VIAL 35 UNIT SUBCUT (22:18)
[2023-02-23] MEDS: clonazePAM 1 MG TABLET PO (22:25)
[2023-02-24] VITALS (11 sets, daily range): BP systolic 137–150; BP diastolic 68–93; PULSE 86–113; RESP 15–22; TEMP 36–36.5; O2SAT 90–100; BMI 39.1
--- NOTE | 2023-02-24 | ECG_ITS ---
Test Reason : qtc check Blood Pressure : / mmHG Vent. Rate : 103 BPM Atrial Rate : 103 BPM P-R Int : 128 ms QRS Dur : 100 ms QT Int : 354 ms P-R-T Axes : 052 015 045 degrees QTc Int : 463 ms Sinus tachycardia Incomplete right bundle branch block Inferior infarct (cited on or before 20-FEB-2023) Abnormal ECG When compared with ECG of 20-FEB-2023 22:12, Criteria for Septal infarct are no longer Present Referred By: Joao Meehan Electronically Signed By:Harris Phillips
[2023-02-24] MEDS: Enoxaparin Sodium 40 MG/0.4 ML SYRINGE SUBCUT (06:10)
[2023-02-24] MEDS: Omeprazole 40 MG CAPSULE.DR PO (06:10)
[2023-02-24] MEDS: Albuterol/Iprat 2.5/0.5MG 3 ML AMPUL.NEB INHALE ×4 (07:16→20:33)
[2023-02-24] MEDS: Tiotropium Bromide 2.5 mcg 1 PUFF/2.5 MCG MIST.INHAL 2 PUFF INHALE (07:16)
[2023-02-24] MEDS: Budesonide 0.5 MG/2 ML AMPUL.NEB INHALE ×2 (07:16→20:38)
[2023-02-24 07:31] LABS: Glucose, Whole Blood 188 mg/dL (60-115)
[2023-02-24] MEDS: Furosemide 40 MG TABLET PO (08:14)
[2023-02-24] MEDS: metFORMIN HCl ER 500 MG TAB.ER.24H 1000 MG PO ×2 (08:14→20:35)
[2023-02-24] MEDS: azaTHIOprine 50 MG TABLET PO (08:14)
[2023-02-24] MEDS: lamoTRIgine 25 MG TABLET 50 MG PO ×2 (08:15→20:34)
[2023-02-24] MEDS: methylPREDNISolone Sod Succ 125 MG/2 ML VIAL 40 MG IVPUSH (08:15)
[2023-02-24] MEDS: Azithromycin 500 MG TABLET PO (08:15)
[2023-02-24] MEDS: Roflumilast 500 MCG TABLET PO (08:15)
[2023-02-24] MEDS: Loratadine 10 MG TABLET PO (08:15)
[2023-02-24] MEDS: lamoTRIgine 100 MG TABLET PO ×2 (08:15→20:34)
[2023-02-24] MEDS: lisinopriL 10 MG TABLET PO (08:15)
[2023-02-24] MEDS: methADONE HCl 20 MG/2 ML ORAL.CONC 50 MG PO (08:15)
[2023-02-24] MEDS: Folic Acid 1 MG TABLET PO (08:15)
[2023-02-24] MEDS: Gabapentin 300 MG CAPSULE PO ×2 (08:15→20:35)
[2023-02-24] MEDS: hydrALAZINE HCl 25 MG TABLET PO ×3 (08:15→17:18)
[2023-02-24] MEDS: 0.9 % Sodium Chloride Flush 3 ML SYRINGE IVFLUSH ×4 (08:16→23:32)
[2023-02-24] MEDS: Insulin Lispro 100 UNIT/ML 3 ML VIAL SUBCUT ×8 (08:16→21:17)
[2023-02-24] MEDS: dilTIAZem HCL CD 180 MG CAP.ER.24H 360 MG PO (08:28)
[2023-02-24] MEDS: Calcitonin,Salmon,Synth Nasal 3.7 ML BOTTLE 1 SPRAY NOSTRIL-B (08:28)
--- NOTE | 2023-02-24 10:27 | P.PNIM_ITS ---
Subjective Subjective Date of Service: 02/24/23 Interval History: Continue to improve but not optimal, still with some sob Physical Exam 2 Vital Signs: Vital Signs: Last Vital Signs Temp 97.2 F 02/24/23 08:00 Pulse 113 H 02/24/23 08:00 Resp 22 H 02/24/23 08:00 BP 150/93 H 02/24/23 08:00 Pulse Ox 91 L 02/24/23 08:00 O2 Del Method Nasal Cannula 02/24/23 08:00 O2 Flow Rate 2 02/24/23 08:00 FiO2 25 02/23/23 03:35 BMI result Body Mass Index 39.1 Const: Other: General: AO X 3, no acute distress Resp: Diminished sounds bilaterally, no wheezing CVS: S1,S2,RRR GI: +BS, NT, no distention Skin: No rash Neuro: motor grossly intact Psych: appropriate affect Objective Data Active Medications Acetaminophen (Acetaminophen 325 Mg Tablet) 650 mg PO Q6H PRN PRN Reason: Pain, Mild (Pain Scale 1-3) Al Hydroxide/Mg Hydroxide (Magnesium Hydrox/Alum Hydrox 30 Ml Oral.Susp) 30 ml PO Q4H PRN PRN Reason: Heartburn/Nausea Albuterol Sulfate (Albuterol Sulfate (0.083%) 2.5 Mg/3 Ml Vial.Neb) 2.5 mg INHALE Q4H PRN PRN Reason: Shortness of Breath/Wheezing Last Admin: 02/23/23 01:13 Dose: 2.5 mg Documented By: TIO Albuterol/Ipratropium (Albuterol/Iprat 2.5/0.5mg 3 Ml Ampul.Neb) 3 ml INHALE RQID [facility] Last Admin: 02/24/23 07:16 Dose: 3 ml Documented By: ROSITA Atorvastatin Calcium (Atorvastatin Calcium 20 Mg Tablet) 20 mg PO BEDTIME [facility] Last Admin: 02/23/23 20:05 Dose: 20 mg Documented By: KAVON Azathioprine (Azathioprine 50 Mg Tablet) 50 mg PO DAILY [facility] Last Admin: 02/24/23 08:14 Dose: 50 mg Documented By: DOMINIK Azithromycin (Azithromycin 500 Mg Tablet) 500 mg PO DAILY [facility] Stop: 02/26/23 08:59 Last Admin: 02/24/23 08:15 Dose: 500 mg Documented By: DOMINIK Budesonide (Budesonide 0.5 Mg/2 Ml Ampul.Neb) 0.5 mg INHALE BID [facility] Last Admin: 02/24/23 07:16 Dose: 0.5 mg Documented By: ROSITA Bupropion HCl (Bupropion Hcl 100 Mg Tablet) 100 mg PO DAILY [facility] Last Admin: 02/24/23 08:25 Dose: Not Given Documented By: DOMINIK Non-Admin Reason: Patient Refused Calcitonin [place] (Calcitonin,[place],Synth Nasal 3.7 Ml Bottle) 1 spray NOSTRIL-B DAILY [facility] Last Admin: 02/24/23 08:28 Dose: 1 spray Documented By: DOMINIK Clonazepam (Clonazepam 1 Mg Tablet) 1 mg PO BID PRN PRN Reason: Anxiety Last Admin: 02/23/23 22:25 Dose: 1 mg Documented By: KAVON Dextrose (Dextrose 50 % 25 Gm/50 Ml Syringe) 25 gm IVPUSH Q15M PRN; Protocol PRN Reason: per Hypoglycemia Standing Ord. Diltiazem HCl (Diltiazem Hcl Cd 180 Mg Cap.Er.24h) 360 mg PO DAILY [facility]; Protocol Last Admin: 02/24/23 08:28 Dose: 360 mg Documented By: DOMINIK Docusate Sodium (Docusate Sodium 100 Mg Capsule) 100 mg PO BID [facility] Last Admin: 02/24/23 08:26 Dose: Not Given Documented By: DOMINIK Non-Admin Reason: Patient Refused Docusate Sodium (Docusate Sodium 100 Mg Capsule) 100 mg PO BID PRN PRN Reason: constipation Enoxaparin Sodium (Enoxaparin Sodium 40 Mg/0.4 Ml Syringe) 40 mg SUBCUT Q24H [facility] Last Admin: 02/24/23 06:10 Dose: 40 mg Documented By: CRYS Folic Acid (Folic Acid 1 Mg Tablet) 1 mg PO DAILY [facility] Last Admin: 02/24/23 08:15 Dose: 1 mg Documented By: DOMINIK Furosemide (Furosemide 40 Mg Tablet) 40 mg PO DAILY [facility]; Protocol Last Admin: 02/24/23 08:14 Dose: 40 mg Documented By: DOMINIK Gabapentin (Gabapentin 300 Mg Capsule) 300 mg PO BID [facility] Last Admin: 02/24/23 08:15 Dose: 300 mg Documented By: DOMINIK Glucose (Glucose Gel 15 Gm Gel..Gram.) 15 gm PO Q15M PRN; Protocol PRN Reason: per Hypoglycemia Standing Ord. Hydralazine HCl (Hydralazine Hcl 25 Mg Tablet) 25 mg PO TIDWM [facility]; Protocol Last Admin: 02/24/23 08:15 Dose: 25 mg Documented By: DOMINIK Insulin Glargine (Insulin Glargine,Hum.Rec.Anlog 100 Unit/Ml 10 Ml Vial) 35 unit SUBCUT BEDTIME [facility] Last Admin: 02/23/23 22:18 Dose: 35 unit Documented By: KAVON Insulin Human Lispro (Insulin Lispro 100 Unit/Ml 3 Ml Vial) 0 unit SUBCUT QIDACHS [facility]; Protocol Last Admin: 02/24/23 08:16 Dose: 2 unit Documented By: DOMINIK Insulin Human Lispro (Insulin Lispro 100 Unit/Ml 3 Ml Vial) 4 unit SUBCUT QIDACHS [facility] Last Admin: 02/24/23 08:16 Dose: 4 unit Documented By: DOMINIK Lactic Acid (Ammonium Lactate 12 % Lotion 226 Gm Bottle) 1 appl TOPICAL DAILY PRN; Protocol PRN Reason: Rash Last Admin: 02/23/23 11:58 Dose: 1 appl Documented By: DOMINIK Lamotrigine (Lamotrigine 100 Mg Tablet) 100 mg PO BID [facility] Last Admin: 02/24/23 08:15 Dose: 100 mg Documented By: DOMINIK Lamotrigine (Lamotrigine 25 Mg Tablet) 50 mg PO BID [facility] Last Admin: 02/24/23 08:15 Dose: 50 mg Documented By: DOMINIK Lidocaine (Lidocaine 4 % Patch Adh..Patch) 1 patch TRANSDERMA DAILY [facility] Last Admin: 02/24/23 08:26 Dose: Not Given Documented By: DOMINIK Non-Admin Reason: Patient Refused Lisinopril (Lisinopril 10 Mg Tablet) 10 mg PO DAILY [facility]; Protocol Last Admin: 02/24/23 08:15 Dose: 10 mg Documented By: DOMINIK Loratadine (Loratadine 10 Mg Tablet) 10 mg PO DAILY [facility] Last Admin: 02/24/23 08:15 Dose: 10 mg Documented By: DOMINIK Melatonin (Melatonin 3 Mg Tablet) 6 mg PO BEDTIME PRN PRN Reason: Insomnia Metformin HCl (Metformin Hcl Er 500 Mg Tab.Er.24h) 1,000 mg PO BID [facility] Last Admin: 02/24/23 08:14 Dose: 1,000 mg Documented By: DOMINIK Methadone HCl (Methadone Hcl 20 Mg/2 Ml Oral.Conc) 50 mg PO DAILY [facility] Last Admin: 02/24/23 08:15 Dose: 50 mg Documented By: DOMINIK Methylprednisolone Sodium Succinate (Methylprednisolone Sod Succ 125 Mg/2 Ml Vial) 40 mg IVPUSH RBID [facility] Last Admin: 02/24/23 08:15 Dose: 40 mg Documented By: DOMINIK Montelukast Sodium (Montelukast Sodium 10 Mg Tablet) 10 mg PO BEDTIME [facility] Last Admin: 02/23/23 20:06 Dose: 10 mg Documented By: KAVON Morphine Sulfate (Morphine Sulfate 4 Mg/Ml Cartridge) 2 mg IVPUSH Q4H PRN; Protocol PRN Reason: Pain, Severe (Pain Scale 7-10) Nitroglycerin (Nitroglycerin 0.4 Mg Tab.Subl) 0.4 mg SUBLINGUAL Q5MX3 PRN PRN Reason: Chest Pain Non-Formulary Medication (Arformoterol [Brovana]) 2 ml INHALE Q12H [facility] Non-Formulary Medication (Cholecalciferol (Vitamin D3)) 1,250 mcg PO WE@0900 [facility] Non-Formulary Medication (Diclofenac Potassium) 50 mg PO TID PRN PRN Reason: Pain Non-Formulary Medication (Sodium Chloride) 4 ml INHALE BID [facility] Omeprazole (Omeprazole 40 Mg Capsule.Dr) 40 mg PO DAILY@0630 [facility] Last Admin: 02/24/23 06:10 Dose: 40 mg Documented By: CRYS Ondansetron HCl (Ondansetron Hcl 4 Mg/2 Ml Vial) 4 mg IVPUSH Q8H PRN PRN Reason: Nausea and Vomiting Polyethylene Glycol (Polyethylene Glycol 3350 17 Gm Powd.Pack) 17 gm PO DAILY [facility] Last Admin: 02/24/23 08:26 Dose: Not Given Documented By: DOMINIK Non-Admin Reason: Patient Refused Roflumilast (Roflumilast 500 Mcg Tablet) 500 mcg PO DAILY [facility] Last Admin: 12/11/23 08:15 Dose: 500 mcg Documented By: DOMINIK Salmeterol Xinafoate (Salmeterol Xinafoate 50 Mcg Blst.W.Dev) 1 puff INHALE RBID [facility] Senna (Sennosides 8.6 Mg Tablet) 17.2 mg PO BEDTIME PRN PRN Reason: Constipation Simethicone (Simethicone 80 Mg Tab.Chew) 80 mg PO QIDWMHS PRN PRN Reason: Abdominal Distention Sodium Chloride (0.9 % Sodium Chloride Flush 3 Ml Syringe) 3 ml IVFLUSH QSHIFT [facility] Last Admin: 02/24/23 08:16 Dose: 3 ml Documented By: DOMINIK Tiotropium [place] (Tiotropium [place] 2.5 Mcg 1 Puff/2.5 Mcg Mist.Inhal) 2 puff INHALE DAILY [facility] Last Admin: 02/24/23 07:16 Dose: 2 puff Documented By: ROSITA Voriconazole (Voriconazole 200 Mg Tablet) 200 mg PO Q12H [facility] Last Admin: 02/23/23 22:18 Dose: 200 mg Documented By: KAVON Zolpidem Tartrate (Zolpidem Tartrate 5 Mg Tablet) 5 mg PO BEDTIME PRN PRN Reason: Sleep Labs 02/23/23 08:08 02/23/23 08:08 Labs: Laboratory Results - last 24 hr 02/23/23 02/23/23 02/23/23 11:25 16:29 21:06 POC Glucose 252 H 209 H 237 H 02/24/23 07:20 POC Glucose 188 H Assessment and Plan (1) Acute bronchitis: Status: Acute (2) Acute respiratory failure with hypoxemia: Status: Acute (3) COPD exacerbation: Status: Acute Plan 53 year old obese (BMI 39.2) female with past medical history of asthma-COPD overlap syndrome, chronic hypercarbic & hypoxic respiratory failure (on oxygen & nocturnal BiPAP), pulmonary aspergillosis, obstructive sleep apnea, obesity hypoventilation syndrome, hypertension, hyperlipidemia, and T2DM here with 1. COPD with acute exacerbation, on top of chronic respriatory failure -continue inhalers, iv sterod, change to Prednisone today, bipap at night and PRN during the day, O2 goal of 88 to 92, cough med PRN 2. Acute on chronic hypoxic respiratory failure d/t above, improved 3. Acute bronchitis, Azithromycin for 5 days, ending 02/26 4.hypertension, continue home meds 5. Type 2 diabetes Mellitus with hyperglycemia, a, continue Lantus, humalog and Metformin. Hyperglycemia in part due to steroid 6. H/O Opioid dependence, continue Methadone 50 mg/daily 7. Leukocytosis, reactive due to steroid, monitor full code dvt p lovenox need for inpt: giving severe exacerbation of copd wth hypoxia with advance lung disease with frequent hospitalization need close monitoring, iv steroid. If better tomorrow maybe discharged. Quality Stroke Does the patient have a stroke diagnosis?: No VTE Prior VTE?: No VTE Risk Level:: Medical - moderate - high VTE Device Contraindication: N/A - Device Ordered VTE Drug Contraindication: N/A - Med Ordered
[2023-02-24] MEDS: Salmeterol Xinafoate 50 MCG BLST.W.DEV 1 PUFF INHALE ×2 (11:52→20:37)
[2023-02-24 12:10] LABS: Glucose, Whole Blood 192 mg/dL (60-115)
[2023-02-24] MEDS: predniSONE 10 MG TABLET 30 MG PO (12:28)
--- NOTE | 2023-02-24 14:12 | MHC.CM.PN ---
Pt not yet medically cleared for DC. CM will follow and assist with DC planning.
[2023-02-24 16:45] LABS: Glucose, Whole Blood 265 mg/dL (60-115)
[2023-02-24] MEDS: Montelukast Sodium 10 MG TABLET PO (20:33)
[2023-02-24] MEDS: Atorvastatin Calcium 20 MG TABLET PO (20:34)
[2023-02-24 20:58] LABS: Glucose, Whole Blood 304 mg/dL (60-115)
[2023-02-24] MEDS: Insulin Glargine,Hum.rec.anlog 100 UNIT/ML 10 ML VIAL 35 UNIT SUBCUT (21:18)
[2023-02-24] MEDS: clonazePAM 1 MG TABLET PO (23:32)
[2023-02-25] VITALS (13 sets, daily range): BP systolic 121–159; BP diastolic 52–94; PULSE 80–139; RESP 16–21; TEMP 35.8–37.1; O2SAT 91–96; BMI 39.1
[2023-02-25] MEDS: Omeprazole 40 MG CAPSULE.DR PO (05:48)
[2023-02-25] MEDS: Enoxaparin Sodium 40 MG/0.4 ML SYRINGE SUBCUT (05:48)
[2023-02-25] MEDS: Albuterol/Iprat 2.5/0.5MG 3 ML AMPUL.NEB INHALE ×4 (07:28→19:27)
[2023-02-25] MEDS: Budesonide 0.5 MG/2 ML AMPUL.NEB INHALE ×2 (07:28→19:28)
[2023-02-25] MEDS: Salmeterol Xinafoate 50 MCG BLST.W.DEV 1 PUFF INHALE ×2 (07:28→19:28)
[2023-02-25] MEDS: Tiotropium Bromide 2.5 mcg 1 PUFF/2.5 MCG MIST.INHAL 2 PUFF INHALE (07:28)
[2023-02-25 07:44] LABS: Glucose, Whole Blood 103 mg/dL (60-115)
[2023-02-25] MEDS: Lidocaine 4 % Patch ADH..PATCH 1 PATCH TRANSDERMA (09:52)
[2023-02-25] MEDS: azaTHIOprine 50 MG TABLET PO (09:53)
[2023-02-25] MEDS: Calcitonin,Salmon,Synth Nasal 3.7 ML BOTTLE 1 SPRAY NOSTRIL-B (09:53)
[2023-02-25] MEDS: Insulin Lispro 100 UNIT/ML 3 ML VIAL SUBCUT ×6 (09:54→22:04)
[2023-02-25] MEDS: predniSONE 10 MG TABLET 30 MG PO (09:55)
[2023-02-25] MEDS: metFORMIN HCl ER 500 MG TAB.ER.24H 1000 MG PO ×2 (09:55→21:57)
[2023-02-25] MEDS: lamoTRIgine 100 MG TABLET PO ×2 (09:55→21:55)
[2023-02-25] MEDS: Azithromycin 250 MG TABLET PO (09:55)
[2023-02-25] MEDS: lamoTRIgine 25 MG TABLET 50 MG PO ×2 (09:55→21:56)
[2023-02-25] MEDS: Furosemide 40 MG TABLET PO (09:56)
[2023-02-25] MEDS: hydrALAZINE HCl 25 MG TABLET PO ×3 (09:56→16:25)
[2023-02-25] MEDS: Loratadine 10 MG TABLET PO (09:56)
[2023-02-25] MEDS: lisinopriL 10 MG TABLET PO (09:56)
[2023-02-25] MEDS: Roflumilast 500 MCG TABLET PO (09:56)
[2023-02-25] MEDS: Gabapentin 300 MG CAPSULE PO ×2 (09:56→21:56)
[2023-02-25] MEDS: Folic Acid 1 MG TABLET PO (09:56)
[2023-02-25] MEDS: methADONE HCl 20 MG/2 ML ORAL.CONC 50 MG PO (09:57)
[2023-02-25] MEDS: dilTIAZem HCL CD 180 MG CAP.ER.24H 360 MG PO (09:57)
[2023-02-25 11:04] LABS: Glucose, Whole Blood 150 mg/dL (60-115)
[2023-02-25] MEDS: Erythromycin Base 0.5% Oph Oin 1 GM TUBE 1 CM EYE-BOTH ×2 (12:25→22:23)
--- NOTE | 2023-02-25 14:15 | P.PNIM_ITS ---
Subjective Subjective Date of Service: 02/25/23 Interval History: Feels shortness of breath is better but complaining of palpitations with minimal activity, denies fever chills ,no worsening cough, complaining of bilateral eye drainage, no pain, no other acute issues overnight, taking all home medications, tolerating diet. Review of Systems All other system reviewed and negative. Physical Exam 2 Vital Signs: Vital Signs: Last Vital Signs Temp 97.8 F 02/25/23 11:18 Pulse 139 H 02/25/23 11:33 Resp 20 02/25/23 11:33 BP 139/89 02/25/23 11:18 Pulse Ox 93 02/25/23 11:18 O2 Del Method Nasal Cannula 02/25/23 11:18 O2 Flow Rate 2 02/25/23 11:18 FiO2 25 02/23/23 03:35 BMI result Body Mass Index 39.1 Const: Other: General: awake alert x3 sitting comfortably in no acute distress Resp: Diminished sounds bilaterally, no wheezing, no crackles CVS: S1,S2,RRR GI: abdomen soft nontender bowel sounds audible Skin: No rash Extremities no edema Neuro: motor grossly intact Psych: appropriate affect Objective Data Active Medications Acetaminophen (Acetaminophen 325 Mg Tablet) 650 mg PO Q6H PRN PRN Reason: Pain, Mild (Pain Scale 1-3) Al Hydroxide/Mg Hydroxide (Magnesium Hydrox/Alum Hydrox 30 Ml Oral.Susp) 30 ml PO Q4H PRN PRN Reason: Heartburn/Nausea Albuterol Sulfate (Albuterol Sulfate (0.083%) 2.5 Mg/3 Ml Vial.Neb) 2.5 mg INHALE Q4H PRN PRN Reason: Shortness of Breath/Wheezing Last Admin: 02/23/23 01:13 Dose: 2.5 mg Documented By: TIO Albuterol/Ipratropium (Albuterol/Iprat 2.5/0.5mg 3 Ml Ampul.Neb) 3 ml INHALE RQID [facility] Last Admin: 02/25/23 11:31 Dose: 3 ml Documented By: WILLIAM Atorvastatin Calcium (Atorvastatin Calcium 20 Mg Tablet) 20 mg PO BEDTIME [facility] Last Admin: 02/24/23 20:34 Dose: 20 mg Documented By: KAVON Azathioprine (Azathioprine 50 Mg Tablet) 50 mg PO DAILY [facility] Last Admin: 02/25/23 09:53 Dose: 50 mg Documented By: MARTIN Azithromycin (Azithromycin 250 Mg Tablet) 250 mg PO DAILY [facility] Stop: 03/01/23 08:59 Last Admin: 02/25/23 09:55 Dose: 250 mg Documented By: MARTIN Budesonide (Budesonide 0.5 Mg/2 Ml Ampul.Neb) 0.5 mg INHALE BID [facility] Last Admin: 02/25/23 07:28 Dose: 0.5 mg Documented By: WILLIAM Bupropion HCl (Bupropion Hcl 100 Mg Tablet) 100 mg PO DAILY [facility] Last Admin: 02/25/23 10:02 Dose: Not Given Documented By: MARTIN Non-Admin Reason: Patient Refused Calcitonin [place] (Calcitonin,[place],Synth Nasal 3.7 Ml Bottle) 1 spray NOSTRIL-B DAILY [facility] Last Admin: 02/25/23 09:53 Dose: 1 spray Documented By: MARTIN Clonazepam (Clonazepam 1 Mg Tablet) 1 mg PO BID PRN PRN Reason: Anxiety Last Admin: 02/24/23 23:32 Dose: 1 mg Documented By: KAVON Dextrose (Dextrose 50 % 25 Gm/50 Ml Syringe) 25 gm IVPUSH Q15M PRN; Protocol PRN Reason: per Hypoglycemia Standing Ord. Diltiazem HCl (Diltiazem Hcl Cd 180 Mg Cap.Er.24h) 360 mg PO DAILY [facility]; Protocol Last Admin: 02/25/23 09:57 Dose: 360 mg Documented By: MARTIN Docusate Sodium (Docusate Sodium 100 Mg Capsule) 100 mg PO BID [facility] Last Admin: 02/25/23 09:57 Dose: Not Given Documented By: MARTIN Non-Admin Reason: Patient Refused Docusate Sodium (Docusate Sodium 100 Mg Capsule) 100 mg PO BID PRN PRN Reason: constipation Enoxaparin Sodium (Enoxaparin Sodium 40 Mg/0.4 Ml Syringe) 40 mg SUBCUT Q24H [facility] Last Admin: 02/25/23 05:48 Dose: 40 mg Documented By: KAVON Erythromycin (Erythromycin Base 0.5% Oph Oin 1 Gm Tube) 1 cm EYE-BOTH TID [facility] Last Admin: 02/25/23 12:25 Dose: 1 cm Documented By: MARTIN Folic Acid (Folic Acid 1 Mg Tablet) 1 mg PO DAILY [facility] Last Admin: 02/25/23 09:56 Dose: 1 mg Documented By: MARTIN Furosemide (Furosemide 40 Mg Tablet) 40 mg PO DAILY [facility]; Protocol Last Admin: 02/25/23 09:56 Dose: 40 mg Documented By: MARTIN Gabapentin (Gabapentin 300 Mg Capsule) 300 mg PO BID [facility] Last Admin: 02/25/23 09:56 Dose: 300 mg Documented By: MARTIN Glucose (Glucose Gel 15 Gm Gel..Gram.) 15 gm PO Q15M PRN; Protocol PRN Reason: per Hypoglycemia Standing Ord. Hydralazine HCl (Hydralazine Hcl 25 Mg Tablet) 25 mg PO TIDWM [facility]; Protocol Last Admin: 02/25/23 12:25 Dose: 25 mg Documented By: MARTIN Insulin Glargine (Insulin Glargine,Hum.Rec.Anlog 100 Unit/Ml 10 Ml Vial) 35 unit SUBCUT BEDTIME [facility] Last Admin: 02/24/23 21:18 Dose: 35 unit Documented By: KAVON Insulin Human Lispro (Insulin Lispro 100 Unit/Ml 3 Ml Vial) 0 unit SUBCUT QIDACHS [facility]; Protocol Last Admin: 02/25/23 11:10 Dose: Not Given Documented By: MARTIN Non-Admin Reason: poc= 150 Insulin Human Lispro (Insulin Lispro 100 Unit/Ml 3 Ml Vial) 4 unit SUBCUT QIDACHS [facility] Last Admin: 02/25/23 12:25 Dose: 4 unit Documented By: MARTIN Lactic Acid (Ammonium Lactate 12 % Lotion 226 Gm Bottle) 1 appl TOPICAL DAILY PRN; Protocol PRN Reason: Rash Last Admin: 02/23/23 11:58 Dose: 1 appl Documented By: DOMINIK Lamotrigine (Lamotrigine 100 Mg Tablet) 100 mg PO BID [facility] Last Admin: 02/25/23 09:55 Dose: 100 mg Documented By: MARTIN Lamotrigine (Lamotrigine 25 Mg Tablet) 50 mg PO BID [facility] Last Admin: 02/25/23 09:55 Dose: 50 mg Documented By: MARTIN Lidocaine (Lidocaine 4 % Patch Adh..Patch) 1 patch TRANSDERMA DAILY [facility] Last Admin: 02/25/23 09:52 Dose: 1 patch Documented By: MARTIN Lisinopril (Lisinopril 10 Mg Tablet) 10 mg PO DAILY [facility]; Protocol Last Admin: 02/25/23 09:56 Dose: 10 mg Documented By: MARTIN Loratadine (Loratadine 10 Mg Tablet) 10 mg PO DAILY [facility] Last Admin: 02/25/23 09:56 Dose: 10 mg Documented By: MARTIN Melatonin (Melatonin 3 Mg Tablet) 6 mg PO BEDTIME PRN PRN Reason: Insomnia Metformin HCl (Metformin Hcl Er 500 Mg Tab.Er.24h) 1,000 mg PO BID [facility] Last Admin: 02/25/23 09:55 Dose: 1,000 mg Documented By: MARTIN Methadone HCl (Methadone Hcl 20 Mg/2 Ml Oral.Conc) 50 mg PO DAILY [facility] Last Admin: 02/25/23 09:57 Dose: 50 mg Documented By: MARTIN Montelukast Sodium (Montelukast Sodium 10 Mg Tablet) 10 mg PO BEDTIME [facility] Last Admin: 02/24/23 20:33 Dose: 10 mg Documented By: KAVON Morphine Sulfate (Morphine Sulfate 4 Mg/Ml Cartridge) 2 mg IVPUSH Q4H PRN; Protocol PRN Reason: Pain, Severe (Pain Scale 7-10) Nitroglycerin (Nitroglycerin 0.4 Mg Tab.Subl) 0.4 mg SUBLINGUAL Q5MX3 PRN PRN Reason: Chest Pain Non-Formulary Medication (Arformoterol [Brovana]) 2 ml INHALE Q12H [facility] Non-Formulary Medication (Cholecalciferol (Vitamin D3)) 1,250 mcg PO WE@0900 [facility] Non-Formulary Medication (Diclofenac Potassium) 50 mg PO TID PRN PRN Reason: Pain Non-Formulary Medication (Sodium Chloride) 4 ml INHALE BID [facility] Omeprazole (Omeprazole 40 Mg Capsule.Dr) 40 mg PO DAILY@0630 [facility] Last Admin: 02/25/23 05:48 Dose: 40 mg Documented By: KAVON Ondansetron HCl (Ondansetron Hcl 4 Mg/2 Ml Vial) 4 mg IVPUSH Q8H PRN PRN Reason: Nausea and Vomiting Polyethylene Glycol (Polyethylene Glycol 3350 17 Gm Powd.Pack) 17 gm PO DAILY [facility] Last Admin: 02/25/23 09:53 Dose: Not Given Documented By: MARTIN Non-Admin Reason: Patient Refused Prednisone (Prednisone 10 Mg Tablet) 30 mg PO DAILY [facility] Last Admin: 02/25/23 09:55 Dose: 30 mg Documented By: MARTIN Roflumilast (Roflumilast 500 Mcg Tablet) 500 mcg PO DAILY [facility] Last Admin: 02/25/23 09:56 Dose: 500 mcg Documented By: MARTIN Salmeterol Xinafoate (Salmeterol Xinafoate 50 Mcg Blst.W.Dev) 1 puff INHALE RBID [facility] Last Admin: 02/25/23 07:28 Dose: 1 puff Documented By: WILLIAM Senna (Sennosides 8.6 Mg Tablet) 17.2 mg PO BEDTIME PRN PRN Reason: Constipation Simethicone (Simethicone 80 Mg Tab.Chew) 80 mg PO QIDWMHS PRN PRN Reason: Abdominal Distention Sodium Chloride (0.9 % Sodium Chloride Flush 3 Ml Syringe) 3 ml IVFLUSH QSHIFT [facility] Last Admin: 02/24/23 23:32 Dose: 3 ml Documented By: KAVON Tiotropium [place] (Tiotropium [place] 2.5 Mcg 1 Puff/2.5 Mcg Mist.Inhal) 2 puff INHALE DAILY [facility] Last Admin: 02/25/23 07:28 Dose: 2 puff Documented By: WILLIAM Voriconazole (Voriconazole 200 Mg Tablet) 200 mg PO Q12H [facility] Last Admin: 02/25/23 09:55 Dose: 200 mg Documented By: MARTIN Zolpidem Tartrate (Zolpidem Tartrate 5 Mg Tablet) 5 mg PO BEDTIME PRN PRN Reason: Sleep Labs 02/23/23 08:08 02/23/23 08:08 Labs: Laboratory Results - last 24 hr 02/24/23 02/24/23 02/25/23 16:40 20:54 07:24 POC Glucose 265 H 304 H 103 02/25/23 11:01 POC Glucose 150 H Assessment and Plan (1) Acute bronchitis: Status: Acute (2) Acute respiratory failure with hypoxemia: Status: Acute (3) COPD exacerbation: Status: Acute Plan 53 year old obese (BMI 39.2) female with past medical history of asthma-COPD overlap syndrome, chronic hypercarbic & hypoxic respiratory failure (on oxygen & nocturnal BiPAP), pulmonary aspergillosis, obstructive sleep apnea, obesity hypoventilation syndrome, hypertension, hyperlipidemia, and T2DM here with 1. COPD with acute exacerbation, with underlying history of chronic respriatory failure -continue is scheduled and as needed inhalers, po Prednisone 30 mg day 2, bipap at night and PRN during the day, O2 goal of 88 to 92, cough med PRN will encourage incentive spirometry chest x-ray showed no pneumonia showed mild vascular congestion, is -1 L does not appear fluid overloaded, normal BNP, continue Lasix 40 mg intermittent tachycardia likely due to updraft treatment, anxiety and hypoxia. no history of thyroid issues will check TSH 2. Acute on chronic hypoxic respiratory failure d/t above, improved 3. Acute bronchitis, Azithromycin po ending 03/01 4.hypertension, continue home meds 5. Type 2 diabetes Mellitus with hyperglycemia, continue Lantus, humalog and Metformin, blood sugars improving since steroids being tapered. 6. H/O Opioid dependence, continue Methadone 50 mg/daily 7. Leukocytosis, reactive due to steroid, monitor full code dvt p lovenox need for inpt: giving severe exacerbation of copd wth hypoxia with advance lung disease with frequent hospitalization need close monitoring, tachycardia need close clinical follow-up. Quality Stroke Does the patient have a stroke diagnosis?: No VTE Prior VTE?: No VTE Risk Level:: Medical - moderate - high VTE Device Contraindication: N/A - Device Ordered VTE Drug Contraindication: N/A - Med Ordered
[2023-02-25 15:53] LABS: Glucose, Whole Blood 160 mg/dL (60-115)
[2023-02-25] MEDS: 0.9 % Sodium Chloride Flush 3 ML SYRINGE IVFLUSH (16:26)
[2023-02-25 20:14] LABS: Glucose, Whole Blood 278 mg/dL (60-115)
[2023-02-25] MEDS: Montelukast Sodium 10 MG TABLET PO (21:56)
[2023-02-25] MEDS: clonazePAM 1 MG TABLET PO (21:56)
[2023-02-25] MEDS: Acetaminophen 325 MG TABLET 650 MG PO (21:56)
[2023-02-25] MEDS: Atorvastatin Calcium 20 MG TABLET PO (21:56)
[2023-02-25] MEDS: Insulin Glargine,Hum.rec.anlog 100 UNIT/ML 10 ML VIAL 35 UNIT SUBCUT (22:03)
[2023-02-26] VITALS (12 sets, daily range): BP systolic 101–145; BP diastolic 55–80; PULSE 82–120; RESP 17–21; TEMP 36.1–36.7; O2SAT 92–100
[2023-02-26] MEDS: Omeprazole 40 MG CAPSULE.DR PO (06:06)
[2023-02-26] MEDS: Enoxaparin Sodium 40 MG/0.4 ML SYRINGE SUBCUT (06:08)
[2023-02-26] MEDS: Albuterol/Iprat 2.5/0.5MG 3 ML AMPUL.NEB INHALE ×4 (07:37→19:40)
[2023-02-26] MEDS: Salmeterol Xinafoate 50 MCG BLST.W.DEV 1 PUFF INHALE ×2 (07:37→19:40)
[2023-02-26] MEDS: Tiotropium Bromide 2.5 mcg 1 PUFF/2.5 MCG MIST.INHAL 2 PUFF INHALE (07:37)
[2023-02-26] MEDS: Budesonide 0.5 MG/2 ML AMPUL.NEB INHALE ×2 (07:37→19:40)
[2023-02-26 07:39] LABS: Glucose, Whole Blood 74 mg/dL (60-115)
[2023-02-26 07:55] LABS: Anion Gap 10 (12-20); Blood Urea Nitrogen 26 mg/dL (9-16); Calcium 9.5 mg/dL (8.4-10.2); Carbon Dioxide 41 mmol/L (22-29); Chloride 95 mmol/L (96-108); Creatinine Clr Calc Pharmacy 120.6; Estimated Glomerular Filt Rate > 60; Glucose Random 72 mg/dL (60-115); Potassium 3.8 mmol/L (3.3-5.1); Sodium 142 mmol/L (135-145)
[2023-02-26 08:06] LABS: Thyroid Stimulating Hormone 0.55 uIU/mL (0.32-4.0)
[2023-02-26] MEDS: Calcitonin,Salmon,Synth Nasal 3.7 ML BOTTLE 1 SPRAY NOSTRIL-B (09:01)
[2023-02-26] MEDS: Insulin Lispro 100 UNIT/ML 3 ML VIAL SUBCUT ×3 (09:02→17:12)
[2023-02-26] MEDS: Lidocaine 4 % Patch ADH..PATCH 1 PATCH TRANSDERMA (09:02)
[2023-02-26] MEDS: 0.9 % Sodium Chloride Flush 3 ML SYRINGE IVFLUSH ×3 (09:02→21:31)
[2023-02-26] MEDS: methADONE HCl 20 MG/2 ML ORAL.CONC 50 MG PO (09:02)
[2023-02-26] MEDS: dilTIAZem HCL CD 180 MG CAP.ER.24H 360 MG PO (09:02)
[2023-02-26] MEDS: lisinopriL 10 MG TABLET PO (09:03)
[2023-02-26] MEDS: hydrALAZINE HCl 25 MG TABLET PO ×3 (09:03→17:11)
[2023-02-26] MEDS: Furosemide 40 MG TABLET PO (09:03)
[2023-02-26] MEDS: lamoTRIgine 25 MG TABLET 50 MG PO ×2 (09:03→21:29)
[2023-02-26] MEDS: predniSONE 10 MG TABLET 30 MG PO (09:03)
[2023-02-26] MEDS: metFORMIN HCl ER 500 MG TAB.ER.24H 1000 MG PO ×2 (09:03→21:29)
[2023-02-26] MEDS: azaTHIOprine 50 MG TABLET PO (09:03)
[2023-02-26] MEDS: Gabapentin 300 MG CAPSULE PO ×2 (09:04→21:30)
[2023-02-26] MEDS: Folic Acid 1 MG TABLET PO (09:04)
[2023-02-26] MEDS: Azithromycin 250 MG TABLET PO (09:04)
[2023-02-26] MEDS: Roflumilast 500 MCG TABLET PO (09:04)
[2023-02-26] MEDS: Loratadine 10 MG TABLET PO (09:04)
[2023-02-26] MEDS: lamoTRIgine 100 MG TABLET PO ×2 (09:04→21:29)
[2023-02-26] MEDS: acetaZOLAMIDE 250 MG TABLET PO ×2 (09:14→21:30)
[2023-02-26 10:53] LABS: Glucose, Whole Blood 69 mg/dL (60-115)
[2023-02-26 11:30] LABS: Glucose, Whole Blood 107 mg/dL (60-115)
--- NOTE | 2023-02-26 15:16 | HO.PM.IMPN ---
Subjective Subjective Date of Service: 02/27/23 Interval History: being followed for COPD with acute accessory patient with acute on chronic hypoxic respiratory failure. feels shortness of breath has improved but continued to have tachycardia with minimal exertion heart rate up to 120-130 with intermittent episodes of hypoxia denies fevers, no chills, tolerating diet, no nausea, no vomiting, no diarrhea. Review of Systems all other system reviewed and negative. Physical Exam Vital Signs: Vital Signs: Last Vital Signs Temp 97.8 F 02/26/23 11:03 Pulse 120 H 02/26/23 11:49 Resp 20 02/26/23 11:49 BP 118/80 02/26/23 11:03 Pulse Ox 94 02/26/23 11:03 O2 Del Method Nasal Cannula 02/26/23 11:03 O2 Flow Rate 2.5 02/26/23 11:03 FiO2 25 02/23/23 03:35 BMI result Body Mass Index 39.1 Const: Other: General: awake alert x3 sitting comfortably in no acute distress Resp: Diminished sounds bilaterally, prolonged expiration,no wheezing, no crackles CVS: S1,S2,RRR GI: abdomen soft nontender bowel sounds audible Skin: No rash Extremities ch rt LE mild swelling with erythema for greater than several months, no tenderness, no edema left leg Neuro: motor grossly intact Psych: appropriate affect Objective Data Active Medications Acetaminophen (Acetaminophen 325 Mg Tablet) 650 mg PO Q6H PRN PRN Reason: Pain, Mild (Pain Scale 1-3) Last Admin: 02/25/23 21:56 Dose: 650 mg Documented By: COLETTE Acetazolamide (Acetazolamide 250 Mg Tablet) 250 mg PO BID ANA Stop: 02/28/23 21:01 Last Admin: 02/26/23 09:14 Dose: 250 mg Documented By: MARTIN Al Hydroxide/Mg Hydroxide (Magnesium Hydrox/Alum Hydrox 30 Ml Oral.Susp) 30 ml PO Q4H PRN PRN Reason: Heartburn/Nausea Albuterol Sulfate (Albuterol Sulfate (0.083%) 2.5 Mg/3 Ml Vial.Neb) 2.5 mg INHALE Q4H PRN PRN Reason: Shortness of Breath/Wheezing Last Admin: 02/23/23 01:13 Dose: 2.5 mg Documented By: TIO Albuterol/Ipratropium (Albuterol/Iprat 2.5/0.5mg 3 Ml Ampul.Neb) 3 ml INHALE RQID [facility] Last Admin: 02/26/23 11:47 Dose: 3 ml Documented By: WILLIAM Atorvastatin Calcium (Atorvastatin Calcium 20 Mg Tablet) 20 mg PO BEDTIME [facility] Last Admin: 02/25/23 21:56 Dose: 20 mg Documented By: COLETTE Azathioprine (Azathioprine 50 Mg Tablet) 50 mg PO DAILY [facility] Last Admin: 02/26/23 09:03 Dose: 50 mg Documented By: MARTIN Azithromycin (Azithromycin 250 Mg Tablet) 250 mg PO DAILY [facility] Stop: 03/01/23 08:59 Last Admin: 02/26/23 09:04 Dose: 250 mg Documented By: MARTIN Budesonide (Budesonide 0.5 Mg/2 Ml Ampul.Neb) 0.5 mg INHALE BID [facility] Last Admin: 02/26/23 07:37 Dose: 0.5 mg Documented By: WILLIAM Bupropion HCl (Bupropion Hcl 100 Mg Tablet) 100 mg PO DAILY [facility] Last Admin: 02/26/23 08:52 Dose: Not Given Documented By: MARTIN Non-Admin Reason: Patient Refused Calcitonin [place] (Calcitonin,[place],Synth Nasal 3.7 Ml Bottle) 1 spray NOSTRIL-B DAILY [facility] Last Admin: 02/26/23 09:01 Dose: 1 spray Documented By: MARTIN Dextrose (Dextrose 50 % 25 Gm/50 Ml Syringe) 25 gm IVPUSH Q15M PRN; Protocol PRN Reason: per Hypoglycemia Standing Ord. Diltiazem HCl (Diltiazem Hcl Cd 180 Mg Cap.Er.24h) 360 mg PO DAILY [facility]; Protocol Last Admin: 02/26/23 09:02 Dose: 360 mg Documented By: MARTIN Docusate Sodium (Docusate Sodium 100 Mg Capsule) 100 mg PO BID [facility] Last Admin: 02/26/23 08:52 Dose: Not Given Documented By: MARTIN Non-Admin Reason: Patient Refused Docusate Sodium (Docusate Sodium 100 Mg Capsule) 100 mg PO BID PRN PRN Reason: constipation Enoxaparin Sodium (Enoxaparin Sodium 40 Mg/0.4 Ml Syringe) 40 mg SUBCUT Q24H [facility] Last Admin: 02/26/23 06:08 Dose: 40 mg Documented By: COLETTE Erythromycin (Erythromycin Base 0.5% Oph Oin 1 Gm Tube) 1 cm EYE-BOTH TID [facility] Last Admin: 02/26/23 14:46 Dose: Not Given Documented By: MARTIN Non-Admin Reason: Patient Refused Folic Acid (Folic Acid 1 Mg Tablet) 1 mg PO DAILY [facility] Last Admin: 02/26/23 09:04 Dose: 1 mg Documented By: MARTIN Furosemide (Furosemide 40 Mg Tablet) 40 mg PO DAILY [facility]; Protocol Last Admin: 02/26/23 09:03 Dose: 40 mg Documented By: MARTIN Gabapentin (Gabapentin 300 Mg Capsule) 300 mg PO BID [facility] Last Admin: 02/26/23 09:04 Dose: 300 mg Documented By: MARTIN Glucose (Glucose Gel 15 Gm Gel..Gram.) 15 gm PO Q15M PRN; Protocol PRN Reason: per Hypoglycemia Standing Ord. Hydralazine HCl (Hydralazine Hcl 25 Mg Tablet) 25 mg PO TIDWM [facility]; Protocol Last Admin: 02/26/23 12:25 Dose: 25 mg Documented By: MARTIN Insulin Glargine (Insulin Glargine,Hum.Rec.Anlog 100 Unit/Ml 10 Ml Vial) 35 unit SUBCUT BEDTIME [facility] Last Admin: 02/25/23 22:03 Dose: 35 unit Documented By: COLETTE Insulin Human Lispro (Insulin Lispro 100 Unit/Ml 3 Ml Vial) 0 unit SUBCUT QIDACHS [facility]; Protocol Last Admin: 02/26/23 11:22 Dose: Not Given Documented By: MARTIN Non-Admin Reason: POC= 69 Insulin Human Lispro (Insulin Lispro 100 Unit/Ml 3 Ml Vial) 4 unit SUBCUT QIDACHS [facility] Last Admin: 02/26/23 11:22 Dose: Not Given Documented By: MARTIN Non-Admin Reason: POC= 69 Lactic Acid (Ammonium Lactate 12 % Lotion 226 Gm Bottle) 1 appl TOPICAL DAILY PRN; Protocol PRN Reason: Rash Last Admin: 02/23/23 11:58 Dose: 1 appl Documented By: DOMINIK Lamotrigine (Lamotrigine 100 Mg Tablet) 100 mg PO BID [facility] Last Admin: 02/26/23 09:04 Dose: 100 mg Documented By: MARTIN Lamotrigine (Lamotrigine 25 Mg Tablet) 50 mg PO BID [facility] Last Admin: 02/26/23 09:03 Dose: 50 mg Documented By: MARTIN Lidocaine (Lidocaine 4 % Patch Adh..Patch) 1 patch TRANSDERMA DAILY [facility] Last Admin: 02/26/23 09:02 Dose: 1 patch Documented By: MARTIN Lisinopril (Lisinopril 10 Mg Tablet) 10 mg PO DAILY [facility]; Protocol Last Admin: 02/26/23 09:03 Dose: 10 mg Documented By: MARTIN Loratadine (Loratadine 10 Mg Tablet) 10 mg PO DAILY [facility] Last Admin: 02/26/23 09:04 Dose: 10 mg Documented By: MARTIN Melatonin (Melatonin 3 Mg Tablet) 6 mg PO BEDTIME PRN PRN Reason: Insomnia Metformin HCl (Metformin Hcl Er 500 Mg Tab.Er.24h) 1,000 mg PO BID [facility] Last Admin: 02/26/23 09:03 Dose: 1,000 mg Documented By: MARTIN Methadone HCl (Methadone Hcl 20 Mg/2 Ml Oral.Conc) 50 mg PO DAILY [facility] Last Admin: 02/26/23 09:02 Dose: 50 mg Documented By: MARTIN Montelukast Sodium (Montelukast Sodium 10 Mg Tablet) 10 mg PO BEDTIME [facility] Last Admin: 02/25/23 21:56 Dose: 10 mg Documented By: COLETTE Nitroglycerin (Nitroglycerin 0.4 Mg Tab.Subl) 0.4 mg SUBLINGUAL Q5MX3 PRN PRN Reason: Chest Pain Non-Formulary Medication (Arformoterol [Brovana]) 2 ml INHALE Q12H [facility] Non-Formulary Medication (Cholecalciferol (Vitamin D3)) 1,250 mcg PO WE@0900 [facility] Non-Formulary Medication (Diclofenac Potassium) 50 mg PO TID PRN PRN Reason: Pain Non-Formulary Medication (Sodium Chloride) 4 ml INHALE BID [facility] Omeprazole (Omeprazole 40 Mg Capsule.Dr) 40 mg PO DAILY@0630 [facility] Last Admin: 02/26/23 06:06 Dose: 40 mg Documented By: COLETTE Ondansetron HCl (Ondansetron Hcl 4 Mg/2 Ml Vial) 4 mg IVPUSH Q8H PRN PRN Reason: Nausea and Vomiting Polyethylene Glycol (Polyethylene Glycol 3350 17 Gm Powd.Pack) 17 gm PO DAILY [facility] Last Admin: 02/26/23 08:52 Dose: Not Given Documented By: MARTIN Non-Admin Reason: Patient Refused Prednisone (Prednisone 10 Mg Tablet) 30 mg PO DAILY [facility] Last Admin: 02/26/23 09:03 Dose: 30 mg Documented By: MARTIN Roflumilast (Roflumilast 500 Mcg Tablet) 500 mcg PO DAILY [facility] Last Admin: 02/26/23 09:04 Dose: 500 mcg Documented By: MARTIN Salmeterol Xinafoate (Salmeterol Xinafoate 50 Mcg Blst.W.Dev) 1 puff INHALE RBID [facility] Last Admin: 02/26/23 07:37 Dose: 1 puff Documented By: WILLIAM Senna (Sennosides 8.6 Mg Tablet) 17.2 mg PO BEDTIME PRN PRN Reason: Constipation Simethicone (Simethicone 80 Mg Tab.Chew) 80 mg PO QIDWMHS PRN PRN Reason: Abdominal Distention Sodium Chloride (0.9 % Sodium Chloride Flush 3 Ml Syringe) 3 ml IVFLUSH QSHIFT [facility] Last Admin: 02/26/23 09:02 Dose: 3 ml Documented By: MARTIN Tiotropium Pillow (Tiotropium Pillow 2.5 Mcg 1 Puff/2.5 Mcg Mist.Inhal) 2 puff INHALE DAILY [facility] Last Admin: 02/26/23 07:37 Dose: 2 puff Documented By: WILLIAM Voriconazole (Voriconazole 200 Mg Tablet) 200 mg PO Q12H [facility] Last Admin: 02/26/23 09:03 Dose: 200 mg Documented By: MARTIN Zolpidem Tartrate (Zolpidem Tartrate 5 Mg Tablet) 5 mg PO BEDTIME PRN PRN Reason: Sleep Labs 02/23/23 08:08 02/26/23 06:41 Labs: Laboratory Results - last 24 hr 02/25/23 02/25/23 02/26/23 15:49 20:08 06:41 Hold Purple Top SEE NOTE Anion Gap 10 L Estim Creat Clear Calc 120.6 Estimated GFR > 60 POC Glucose 160 H 278 H Random Glucose 72 Calcium 9.5 D TSH 0.55 02/26/23 02/26/23 02/26/23 07:24 10:50 11:27 Hold Purple Top Anion Gap Estim Creat Clear Calc Estimated GFR POC Glucose 74 69 107 Random Glucose Calcium TSH Microbiology Microbiology Results: Microbiology 02/20/23 22:23 Blood Culture - Final Blood - Venous No growth after 5 days. 02/20/23 21:14 Blood Culture - Final Blood - Venous No growth after 5 days. Assessment and Plan (1) Acute bronchitis: Status: Acute (2) Acute respiratory failure with hypoxemia: Status: Acute (3) COPD exacerbation: Status: Acute Plan 53 year old obese (BMI 39.2) female with past medical history of asthma-COPD overlap syndrome, chronic hypercarbic & hypoxic respiratory failure (on oxygen & nocturnal BiPAP), pulmonary aspergillosis, obstructive sleep apnea, obesity hypoventilation syndrome, hypertension, hyperlipidemia, and T2DM here with 1. COPD with acute exacerbation, with underlying history of chronic respriatory failure feeling better , less shortness of breath, no chest pain, except tachycardia with minimal activity heart rate up to 120-130 continue scheduled and as needed inhalers, po Prednisone 30 mg day 2, bipap at night and PRN during the day, O2 goal of 88 to 92, cough med PRN will encourage incentive spirometry chest x-ray showed no pneumonia showed mild vascular congestion, is -1 L does not appear fluid overloaded, normal BNP, continue Lasix 40 mg intermittent tachycardia likely due to updraft treatment, anxiety and hypoxia, will obtain D-dimer. no history of thyroid issues , TSH 0.55. will obtain D-dimer due to persistent tachycardia, if elevated will check CTA chest 2. Acute on chronic hypoxic respiratory failure d/t above, improved ,continue 2.5-3 L of oxygen 3. Acute bronchitis, Azithromycin po ending 03/01 4.hypertension, continue home meds 5. Type 2 diabetes Mellitus with hyperglycemia, continue Lantus, humalog and Metformin, blood sugars improving since steroids being tapered. 6. H/O Opioid dependence, continue Methadone 50 mg/daily 7. Leukocytosis, reactive due to steroid, monitor 8. isolated filamentous fungus sputum culture 12/21 9. Chronic right lower extremity swelling and redness with no fevers no tenderness will obtain ultrasound of rt. leg full code dvt p lovenox need for inpt: giving severe exacerbation of copd wth hypoxia with advance lung disease with frequent hospitalization need close monitoring, tachycardia need close clinical follow-up. Quality Stroke Does the patient have a stroke diagnosis?: No VTE Prior VTE?: No VTE Risk Level:: Medical - moderate - high VTE Device Contraindication: N/A - Device Ordered VTE Drug Contraindication: N/A - Med Ordered
--- NOTE | 2023-02-26 15:44 | MHC.CM.PN ---
EMR reviewed and per MD rounds, pt is not medically cleared for D/C due to need for continued management of COPD exacerbation. CM will continue to follow.
[2023-02-26 15:46] LABS: Glucose, Whole Blood 159 mg/dL (60-115)
[2023-02-26 17:38] LABS: D Dimer High Sensitivity < 150 NG/ML
[2023-02-26 20:30] LABS: Glucose, Whole Blood 116 mg/dL (60-115)
[2023-02-26] MEDS: Montelukast Sodium 10 MG TABLET PO (21:29)
[2023-02-26] MEDS: Erythromycin Base 0.5% Oph Oin 1 GM TUBE 1 CM EYE-BOTH (21:30)
[2023-02-26] MEDS: Atorvastatin Calcium 20 MG TABLET PO (21:30)
[2023-02-26] MEDS: Insulin Glargine,Hum.rec.anlog 100 UNIT/ML 10 ML VIAL 35 UNIT SUBCUT (21:31)
[2023-02-27] VITALS (9 sets, daily range): BP systolic 107–141; BP diastolic 54–87; PULSE 85–110; RESP 13–20; TEMP 36.1–36.2; O2SAT 92–98; BMI 40.0
[2023-02-27] MEDS: Enoxaparin Sodium 40 MG/0.4 ML SYRINGE SUBCUT (05:38)
[2023-02-27] MEDS: Omeprazole 40 MG CAPSULE.DR PO (05:39)
[2023-02-27 07:20] LABS: Glucose, Whole Blood 119 mg/dL (60-115)
[2023-02-27] MEDS: Salmeterol Xinafoate 50 MCG BLST.W.DEV 1 PUFF INHALE (07:42)
[2023-02-27] MEDS: Budesonide 0.5 MG/2 ML AMPUL.NEB INHALE (07:42)
[2023-02-27] MEDS: Tiotropium Bromide 2.5 mcg 1 PUFF/2.5 MCG MIST.INHAL 2 PUFF INHALE (07:42)
[2023-02-27] MEDS: Albuterol/Iprat 2.5/0.5MG 3 ML AMPUL.NEB INHALE ×3 (07:42→15:19)
[2023-02-27] MEDS: methADONE HCl 20 MG/2 ML ORAL.CONC 50 MG PO (08:14)
[2023-02-27] MEDS: Lidocaine 4 % Patch ADH..PATCH 1 PATCH TRANSDERMA (08:14)
[2023-02-27] MEDS: Gabapentin 300 MG CAPSULE PO (08:15)
[2023-02-27] MEDS: metFORMIN HCl ER 500 MG TAB.ER.24H 1000 MG PO (08:15)
[2023-02-27] MEDS: predniSONE 10 MG TABLET 30 MG PO (08:16)
[2023-02-27] MEDS: Loratadine 10 MG TABLET PO (08:16)
[2023-02-27] MEDS: Folic Acid 1 MG TABLET PO (08:17)
[2023-02-27] MEDS: lamoTRIgine 25 MG TABLET 50 MG PO (08:17)
[2023-02-27] MEDS: azaTHIOprine 50 MG TABLET PO (08:18)
[2023-02-27] MEDS: Roflumilast 500 MCG TABLET PO (08:18)
[2023-02-27] MEDS: Furosemide 40 MG TABLET PO (08:18)
[2023-02-27] MEDS: lisinopriL 10 MG TABLET PO (08:18)
[2023-02-27] MEDS: acetaZOLAMIDE 250 MG TABLET PO (08:18)
[2023-02-27] MEDS: Azithromycin 250 MG TABLET PO (08:18)
[2023-02-27] MEDS: hydrALAZINE HCl 25 MG TABLET PO ×2 (08:18→12:17)
[2023-02-27] MEDS: dilTIAZem HCL CD 180 MG CAP.ER.24H 360 MG PO (08:18)
[2023-02-27] MEDS: 0.9 % Sodium Chloride Flush 3 ML SYRINGE IVFLUSH ×2 (08:19→16:03)
[2023-02-27] MEDS: lamoTRIgine 100 MG TABLET PO (08:33)
[2023-02-27] MEDS: Calcitonin,Salmon,Synth Nasal 3.7 ML BOTTLE 1 SPRAY NOSTRIL-B (08:34)
[2023-02-27 11:13] LABS: Glucose, Whole Blood 110 mg/dL (60-115)
--- NOTE | 2023-02-27 15:57 | P.DS_ITS ---
DS: Providers Provider Date of Service: 02/27/23 Date of admission: 02/21/23 03:02 Primary care physician: Kelli Benavides MD DS: Diagnosis Discharge Diagnosis (1) Acute bronchitis: Status: Acute (2) Acute respiratory failure with hypoxemia: Status: Acute (3) COPD exacerbation: Status: Acute DS: Summary Hospital Course Hospital Course: History of presenting illness: Date of Service: 02/21/23 Attending physician on admission: Kareem Isaac Chief Complaint: Shortness of breath Patient is a 53 year old obese (BMI 39.2) female with past medical history of asthma-COPD overlap syndrome, chronic hypercarbic & hypoxic respiratory failure (on oxygen & nocturnal BiPAP), pulmonary aspergillosis, obstructive sleep apnea, obesity hypoventilation syndrome, hypertension, hyperlipidemia, and T2DM who presented to the emergency room from home via EMS complaining of SOB that has been progressively worsening over the last 2 days despite her using her home updrafts and BiPAP at night. This has been associated with a cough that is productive of brownish phlegm and JOHNY chest pain that is worse with the cough. She denies any associated fevers or chills, has not recently travelled and denies sick contacts. Symptoms are very similar to her previous episodes of COPD exacerbation. When EMS personnel arrived at scene, they found her hypoxic with SpO2 of 80% on room air. They placed her on CPAP and administered 125 mg of IM Solu-Medrol and gave her an updraft treatment en-route to the emergency room where on arrival she was transitioned to a BiPAP mask. Work up done in the ED included an VBG that was significant for a pH of 7.61 and a HCO3 of 43. CBC done had a leucocytosis of 14.1 k/mm3 which is chronic while her comprehensive metabolic panel was fairly normal. She received an hour long Duo Neb updraft and was continued on BiPAP and admission requested for ongoing care. When I saw her, she was still in respiratory distress and on BiPAP and so not much information was available from her. Hospital course: 53 year old obese (BMI 39.2) female with past medical history of asthma-COPD overlap syndrome, chronic hypercarbic & hypoxic respiratory failure (on oxygen & nocturnal BiPAP), pulmonary aspergillosis, obstructive sleep apnea, obesity hypoventilation syndrome, hypertension, hyperlipidemia, and T2DM here with 1. Admitted to telemetry unit with a diagnosis of COPD with acute exacerbation, with underlying history of chronic respriatory failure, patient was treated with IV Solu Medrol scheduled and prn updraft treatment and IV azithromycin for bronchitis, chest x-ray showed no pneumonia,showed mild vascular congestion, patient was continued on baseline diuretics, since she appeared euvolemic , she was placed on BiPAP at bedtime and during daytime with naps, patient responded slowly to above treatment she was noted to have intermittent tachycardia, D-dimer was less than 200, TSH was 0.55, tachycardia gradually improved, therefore she is being discharged home on tapering dose of prednisone recommend to follow low-calorie diet and continue all home inhalers and close outpatient follow-up with primary instructor bridge Dr. Brito 2. Acute on chronic hypoxic respiratory failure d/t above, improved ,continue 2.5-3 L of home oxygen. 3. Acute bronchitis, finished course of azithromycin 4.hypertension, stable blood pressures continue home meds 5. Type 2 diabetes Mellitus continue Lantus, humalog and Metformin strongly recommend to follow low carb diet. 6. H/O Opioid dependence, continue Methadone 50 mg/daily. 7. Leukocytosis, reactive due to steroid. 8. isolated filamentous fungus sputum culture 12/21 continue voriconazole and follow-up with pulmonology for duration of treatment. 9. Chronic right lower extremity swelling and redness with no fevers ,no tenderness , ultrasound of rt. leg showed no DVT. Time Attestation Discharge coordination time: Greater than 30 minutes Quality: Safe Use of Opioids Does Pt have an Active Cancer Diagnosis on the Problem List?: No Quality: Stroke Does the patient have a stroke diagnosis?: No Physical Exam Vital Signs: Vital Signs: Last Vital Signs Temp 97.0 F 02/27/23 15:48 Pulse 92 02/27/23 15:48 Resp 18 02/27/23 15:48 BP 124/58 L 02/27/23 15:48 Pulse Ox 94 02/27/23 15:48 O2 Del Method Nasal Cannula 02/27/23 15:48 O2 Flow Rate 2 02/27/23 15:48 FiO2 25 02/23/23 03:35 BMI result Body Mass Index 40.0 Const: Other: General: awake alert x3 sitting comfortably in no acute distress Resp: Diminished sounds bilaterally, prolonged expiration,no wheezing, no crackles CVS: S1,S2,RRR GI: abdomen soft non tender bowel sounds audible Skin: No rash Extremities ch rt LE mild swelling with erythema for greater than several months, no tenderness, no edema left leg Neuro: motor grossly intact Psych: appropriate affect DS: Data Data Completed and Pending Completed studies during hospitalization [Text1]: Procedures Assistance with Respiratory Ventilation, 24-96 Consecutive Hours, Continuous Positive Airway Pressure (05/18/21) Assistance with Respiratory Ventilation, Less than 24 Consecutive Hours, Continuous Positive Airway Pressure (02/02/23) Insertion of Endotracheal Airway into Trachea, Via Natural or Artificial Opening (12/21/22) Insertion of Infusion Device into Right Atrium, Percutaneous Approach (12/21/21) Insertion of Infusion Device into Right Brachial Vein, Percutaneous Approach (07/28/22) Insertion of Infusion Device into Superior Vena Cava, Percutaneous Approach (12/21/22) Insertion of Infusion Device into Upper Vein, Percutaneous Approach (10/19/22) Introduction of Vasopressor into Peripheral Vein, Percutaneous Approach (12/21/21) Respiratory Ventilation, 24-96 Consecutive Hours (12/21/22) Ultrasonography of Superior Vena Cava, Guidance (12/21/22) Labs on day of discharge: Laboratory Results - last 24 hr 02/26/23 02/26/23 02/27/23 16:15 20:08 07:01 D-Dimer High Sensitivty < 150 POC Glucose 116 H 119 H 02/27/23 11:08 D-Dimer High Sensitivty POC Glucose 110 Discharge Plan Discharge Anticipated Discharge Date/Time: 02/27/23 14:54 Patient Disposition: Home, Self-Care Discharge Diagnosis: Acute on chronic hypoxic respiratory failure Acute COPD exacerbation Acute bronchitis Referrals: [facility] [Other] - 1 Week Kelli Benavides MD [Primary Care Provider] - 1 Week Discharge Medications: New prednisone 10 mg tablet 10 mg PO DAILY Qty: 14 0RF Rx Instructions: Take prednisone to 10 mg 2tablets (20mg) for 5 days Then take prednisone 10 mg 1 tablet daily for 4 more days Continued ipratropium-albuterol 0.5 mg-3 mg(2.5 mg base)/3 mL solution for nebulization 3 ml PO Q4H PRN (Reason: for wheezing) Qty: 540 6RF sodium chloride 7 % solution for nebulization 4 ml inhalation BID Qty: 240 11RF omeprazole 40 mg capsule,delayed release(DR/EC) 40 mg PO DAILY@0630 30 Days Qty: 30 6RF gabapentin 300 mg capsule 300 mg PO BID Qty: 60 11RF albuterol sulfate [ProAir HFA] 90 mcg/actuation HFA aerosol inhaler 2 puff inhalation Q4H PRN (Reason: Shortness Of Breath Or Wheezing) Qty: 1 0RF diltiazem HCl [Tiadylt ER] 360 mg capsule,extended release 24 hr 360 mg PO DAILY rosuvastatin 5 mg tablet 5 mg PO BEDTIME roflumilast [Daliresp] 500 mcg tablet 500 mcg PO DAILY metformin 500 mg tablet extended release 24 hr 1,000 mg PO BID hydralazine 25 mg tablet 25 mg PO TIDWM insulin lispro 100 unit/mL solution 4 unit subcut TIDAC methadone 10 mg/mL Concentrate 50 mg PO DAILY Patient Comments: [facility] PIC[facility] UP AND ADMINISTERS simethicone [Gas Relief (simethicone)] 80 mg Tablet,Chewable 80 mg PO QIDWMHS PRN (Reason: Abdominal Distention) Qty: 30 0RF lamotrigine 150 mg tablet 150 mg PO BID alendronate 70 mg tablet 70 mg PO QWEEK lidocaine 5 % adhesive patch,medicated 1 patch topical DAILY Rx Instructions: APPLY FOR 12 HOURS THEN REMOVE FOR 12 HOURS cholecalciferol (vitamin D3) 1,250 mcg (50,000 unit) capsule 1,250 mcg PO WE@0900 calcitonin (salmon) 200 unit/actuation spray,non-aerosol 1 spray intranasal DAILY Rx Instructions: one nostril every day, alternate sides. insulin glargine [Lantus U-100 Insulin] 100 unit/mL solution 35 unit subcut BEDTIME docusate sodium 100 mg capsule 100 mg PO BID PRN (Reason: constipation) zolpidem 5 mg tablet 5 mg PO BEDTIME PRN (Reason: Sleep) azathioprine 50 mg Tablet 50 mg PO DAILY clonazepam 1 mg tablet 1 mg PO BID PRN (Reason: Anxiety) bupropion HCl 100 mg tablet 100 mg PO DAILY Serevent Diskus 50 mcg/dose blister with device 1 inh INHALATION BID polyethylene glycol 3350 [Miralax] 17 gram/dose powder 17 g PO DAILY diclofenac potassium 50 mg Tablet 50 mg PO TID PRN (Reason: Pain) lisinopril 10 mg Tablet 10 mg PO DAILY 30 Days Qty: 30 0RF Protocol: Hold for SBP< HOLD for SBP < : 90 ammonium lactate 12 % lotion 1 appl topical DAILY PRN (Reason: Rash) furosemide [Lasix] 20 mg tablet 40 mg PO DAILY montelukast 10 mg tablet 10 mg PO BEDTIME loratadine [Claritin] 10 mg tablet 10 mg PO DAILY (DME) compress.stocking,knee,reg,med Misc See Rx Instructions .Route Qty: 2 0RF Rx Instructions: 15-20 cm arformoterol [Brovana] 15 mcg/2 mL solution for nebulization 2 ml inhalation Q12H 30 Days Qty: 120 11RF budesonide 0.5 mg/2 mL suspension for nebulization 0.5 mg inhalation BID Qty: 120 11RF tiotropium bromide [Spiriva with HandiHaler] 18 mcg capsule, w/inhalation device 1 cap inhalation DAILY Qty: 30 11RF (DME) nebulizers Misc See Rx Instructions .ROUTE Rx Instructions: As directed voriconazole 200 mg tablet 200 mg PO Q12H 30 Days Qty: 60 1RF Rx Instructions: administer on empty stomach, at least 1 hour before or after meal(s) folic acid 1 mg tablet 1 mg PO DAILY 30 Days Qty: 30 6RF Discontinued ibuprofen 600 mg tablet 600 mg PO Q8H PRN (Reason: Pain) Discharge Orders: Discharge Order (Routine); Ordered 02/27/23 Ordered By: Vel Ramires Diet: Diabetic diet Activity on Discharge: As tolerated Stand Alone Forms: Patient Portal Discharge page Care Plan Goals: Continue home oxygen 2.5-3 L as before Use all inhalers Take prednisone taper as directed Outpatient follow-up with Dr. Brito discuss duration of voriconazole and end date. Continue BiPAP at night and during day as needed. Follow low-calorie diet Right lower extremity and duplex study showed no DVT Health Concerns: Chronic COPD Chronic respiratory failure Plan of Treatment: Outpatient follow-up with primary care physician and pulmonology Assessment: as above
[2023-02-27] MEDS: Erythromycin Base 0.5% Oph Oin 1 GM TUBE 1 CM EYE-BOTH (16:02)
--- NOTE | 2023-02-27 16:09 | MHC.CM.PN ---
Pt is medically cleared for D/C home with resumption of [facility] and home O2 through [facility]. Pt states her family will transport her home.
[2023-02-27 16:21] LABS: Glucose, Whole Blood 295 mg/dL (60-115)
[2023-02-27] MEDS: Insulin Lispro 100 UNIT/ML 3 ML VIAL SUBCUT ×2 (16:35→16:36)
== END 2023-02-27 19:01 | disposition home or self-care (01) | DRG 420 ==
LOC: HO.ED 02-21 00:47 → HO.EDOVER 02-21 03:08 → HO.IMC 02-21 18:44
PROVIDERS: Internal Medicine; Admitting Provider Internal Medicine; Emergency Provider Student in an Organized Health Care Education/Training Program; PCP Family Medicine; Visit Provider Hospitalist
DX: E11.65 Type 2 diabetes mellitus with hyperglycemia (principal); J96.21 Acute and chronic respiratory failure with hypoxia; J44.1 Chronic obstructive pulmonary disease with (acute) exacerbation; J20.9 Acute bronchitis, unspecified; E66.2 Morbid (severe) obesity with alveolar hypoventilation; F11.20 Opioid dependence, uncomplicated; Z20.822 Contact with and (suspected) exposure to COVID-19; Z68.41 Body mass index [BMI] 40.0-44.9, adult; Z79.4 Long term (current) use of insulin; Z79.84 Long term (current) use of oral hypoglycemic drugs; Z79.899 Other long term (current) drug therapy
CPT/HCPCS: 36415; 71045; 80048; 80053; 82803; 82947; 83605; 83735; 83880; 84443; 85025; 85027; 85379; 87040; 87502; 87635; 93005; 93971; 94640; 94660; 99285; J0456; J1650; J2930

== ENCOUNTER → 2023-02-20 22:12 | Outpatient (BNV) | payer MEDICAID, SELFPAY | PROVIDERS: Admitting Provider Internal Medicine; Emergency Provider Student in an Organized Health Care Education/Training Program; PCP Family Medicine; Visit Provider Internal Medicine | DX: R00.0 Tachycardia, unspecified (principal); R94.31 Abnormal electrocardiogram [ECG] [EKG] | CPT/HCPCS: 93010 ==

== ENCOUNTER 2023-02-21 03:02 | Outpatient (BNV) | payer MEDICAID, SELFPAY | END 2023-02-24 10:47 | PROVIDERS: Admitting Provider Internal Medicine; Emergency Provider Student in an Organized Health Care Education/Training Program; PCP Family Medicine; Visit Provider Internal Medicine Cardiovascular Disease | DX: R00.0 Tachycardia, unspecified (principal); R94.31 Abnormal electrocardiogram [ECG] [EKG] | CPT/HCPCS: 93010 ==

== ENCOUNTER → 2023-02-21 03:02 | Outpatient (BNV) | payer MEDICAID, SELFPAY | PROVIDERS: Admitting Provider Internal Medicine; Emergency Provider Student in an Organized Health Care Education/Training Program; PCP Family Medicine; Visit Provider Internal Medicine | DX: J96.01 Acute respiratory failure with hypoxia (principal); J44.1 Chronic obstructive pulmonary disease with (acute) exacerbation; J20.9 Acute bronchitis, unspecified; I10 Essential (primary) hypertension | CPT/HCPCS: 99223; 99232; 99233; 99239; 99499 ==

== ENCOUNTER 2023-03-04 03:30 | Emergency (ER) | payer MEDICAID, SELFPAY ==
--- NOTE | ~2023-03-04 | CT_ITS ---
EXAMINATION: CT ABDOMEN AND PELVIS WITH CONTRAST CLINICAL INFORMATION: Epigastric pain. Right upper quadrant pain and vomiting. COMPARISON: 12/21/2022 TECHNIQUE: Multidetector volumetric images were obtained from the superior aspect of the liver through the pubic symphysis following administration 100 mL of Omnipaque 350 intravenous contrast. Sagittal and coronal reformatted images were obtained on the technologist's workstation. Oral contrast: No This CT examination was performed using dose optimization techniques as appropriate, variously including the following: *Automated exposure control *Adjustment of mA and/or kV according to patient size (this includes techniques or standardized protocols for targeted exams where dose is matched to indication/reason for exam; i.e. extremities or head) *Use of iterative reconstruction technique DLP: 575 mGy-cm FINDINGS: LUNG BASES: The visualized lung bases are unremarkable. LIVER, GALLBLADDER, AND BILIARY TREE: The liver is normal in size, shape, and attenuation. No focal hepatic lesion or biliary ductal dilatation is present. The gallbladder is unremarkable with no evidence of radiopaque gallstones, gallbladder wall thickening, or obvious pericholecystic inflammatory changes. PANCREAS: Unremarkable. SPLEEN: Unremarkable. ADRENAL GLANDS: Unremarkable. KIDNEYS AND URETERS: The kidneys are normal in size, shape, and attenuation. No hydronephrosis, hydroureter, or calculi seen. No perinephric stranding. BLADDER: Unremarkable. GASTROINTESTINAL TRACT: The small and large bowel are unremarkable. The appendix is unremarkable. ABDOMINAL WALL: No significant hernia is appreciated. Diastasis of the rectus abdominis. LYMPH NODES: Normal. VASCULAR: Unremarkable. PELVIC VISCERA: Unremarkable. OSSEOUS STRUCTURES: No acute or suspicious osseous abnormalities. Chronic compression fractures redemonstrated from T12-L4. Healed bilateral rib fractures. CT/CT abdomen pelvis w IV con IMPRESSION: No acute findings within the abdomen or pelvis to explain the patient's symptomatology. Fleischner guidelines were followed.
[2023-03-04 03:43] VITALS: BP 128/76; BP 144/80; PULSE 118; PULSE 119; RESP 20; TEMP 36.9; O2SAT 97; BMI 37.7
--- NOTE | 2023-03-04 03:57 | ECG_ITS ---
Test Reason : ABD PAIN Blood Pressure : / mmHG Vent. Rate : 119 BPM Atrial Rate : 119 BPM P-R Int : 134 ms QRS Dur : 094 ms QT Int : 340 ms P-R-T Axes : 058 031 052 degrees QTc Int : 478 ms Sinus tachycardia Possible Left atrial enlargement Incomplete right bundle branch block Possible Inferior infarct (cited on or before 20-FEB-2023) Abnormal ECG When compared with ECG of 24-FEB-2023 10:47, No significant change was found Referred By: Sabrina Aguirre Electronically Signed By:TRISTAN CASTREJON MD
--- NOTE | 2023-03-04 04:19 | PC.NURSE ---
Pt A&Ox3, BIBA from home, reports constant epigastric pain starting today at 0100. Denies any pain radiation. ABD distended and firm, + bowel sounds x 4 quadrants. Pt reports nausea and vomiting yellow bile. Reports last BM was last night but feels she incomplete with emptying . Pt wears o2 at baseline at 2.5L via [place].
--- NOTE | 2023-03-04 04:32 | ED_ITS ---
HPI - Abdominal Pain General Chief Complaint: Abdominal Pain Stated Complaint: Vomiting Time Seen by Provider: 03/04/23 03:59 Source: patient, old records reviewed and licensed occupational therapist Mode of arrival: EMS Limitations: no limitations History of Present Illness HPI narrative: 53 yo female well known to us hx of COPD, chronic resp failure home use of CPAP, aspiration pneumonia, chronic smoker, methadone use, DM, here with c/o eating a meal with pork around 8pm tonight she then felt her blood sugar was low around 1am so she ate some sherbert. After she ate that she started to vomit and feel ill. She c/o upper and RUQ abdominal pain. She denies travel or sick contacts. She states she has not had this before and was doing okay prior to this. She states she feels better now. She is having 3 BMs a day and is passing gas though she states she feels she could pass more stool. MD elicited complaint: abdominal pain Pertinent past history: constipation Onset (ago): hour(s) (since 1am. ) Pain Consistency: other (improving) Location: epigastric and RUQ Severity: moderate Quality: aching and fullness Radiation: none Migration to: no migration Exacerbating factors: eating Relieving factors: nothing Associated symptoms: nausea and vomiting Related Data Home Medications Medication Instructions Recorded Confirmed loratadine 10 mg tablet (Claritin) 10 mg PO DAILY 12/30/19 02/21/23 montelukast 10 mg tablet 10 mg PO BEDTIME 12/30/19 02/21/23 diltiazem HCl 360 mg capsule,24 360 mg PO DAILY 11/16/20 02/21/23 hr,extended release (Tiadylt ER) roflumilast 500 mcg tablet 500 mcg PO DAILY 11/16/20 02/21/23 (Daliresp) rosuvastatin 5 mg tablet 5 mg PO BEDTIME 11/16/20 02/21/23 metformin 500 mg tablet,extended 1,000 mg PO BID 05/18/21 02/21/23 release 24 hr methadone 10 mg/mL oral concentrate 50 mg PO DAILY 06/06/21 02/21/23 hydralazine 25 mg tablet 25 mg PO TIDWM 11/02/21 02/21/23 insulin lispro 100 unit/mL 4 unit subcut TIDAC 11/02/21 02/21/23 subcutaneous solution clonazepam 1 mg tablet 1 mg PO BID PRN Anxiety 06/28/22 02/21/23 alendronate 70 mg tablet 70 mg PO QWEEK 07/29/22 02/21/23 lamotrigine 150 mg tablet 150 mg PO BID 07/29/22 02/21/23 lidocaine 5 % topical patch 1 patch topical DAILY 07/29/22 02/21/23 calcitonin (salmon) 200 1 spray intranasal DAILY 09/30/22 02/21/23 unit/actuation nasal spray cholecalciferol (vitamin D3) 1,250 1,250 mcg PO WE@0900 09/30/22 02/21/23 mcg (50,000 unit) capsule insulin glargine 100 unit/mL 35 unit subcut BEDTIME 09/30/22 02/21/23 subcutaneous solution (Lantus U-100 Insulin) docusate sodium 100 mg capsule 100 mg PO BID PRN constipation 10/20/22 02/21/23 zolpidem 5 mg tablet 5 mg PO BEDTIME PRN Sleep 10/20/22 02/21/23 nebulizers 11/08/22 02/02/23 bupropion HCl 100 mg tablet 100 mg PO DAILY 12/21/22 02/21/23 diclofenac potassium 50 mg tablet 50 mg PO TID PRN Pain 12/21/22 02/21/23 polyethylene glycol 3350 17 17 g PO DAILY constipation 12/21/22 02/21/23 gram/dose oral powder (Miralax) salmeterol 50 mcg/dose blister 1 inh inhalation BID 12/21/22 02/21/23 powder for inhalation (Serevent Diskus) ammonium lactate 12 % lotion 1 appl topical DAILY PRN Rash 02/02/23 02/21/23 furosemide 20 mg tablet (Lasix) 40 mg PO DAILY 02/02/23 02/21/23 azathioprine 50 mg tablet 50 mg PO DAILY 02/21/23 02/21/23 Previous Rx's Medication Instructions Recorded simethicone 80 mg chewable tablet 80 mg PO QIDWMHS PRN Abdominal 01/05/22 (Gas Relief (simethicone)) Distention #30 tabs ipratropium 0.5 mg-albuterol 3 mg 3 ml PO Q4H PRN for wheezing #540 09/02/22 (2.5 mg base)/3 mL nebulization mL soln sodium chloride 7 % for 4 ml inhalation BID #240 mL 09/20/22 nebulization omeprazole 40 mg capsule,delayed 40 mg PO DAILY@0630 30 days #30 09/24/22 release caps folic acid 1 mg tablet 1 mg PO DAILY 30 days #30 tabs 12/19/22 lisinopril 10 mg tablet 10 mg PO DAILY 30 days #30 tabs 12/27/22 gabapentin 300 mg capsule 300 mg PO BID #60 caps 01/14/23 voriconazole 200 mg tablet 200 mg PO Q12H 30 days #60 tabs 01/14/23 albuterol sulfate 90 mcg/actuation 2 puff inhalation Q4H PRN 02/19/23 aerosol inhaler (ProAir HFA) Shortness Of Breath Or Wheezing #1 ea arformoterol 15 mcg/2 mL solution 2 ml inhalation Q12H 30 days #120 02/20/23 for nebulization (Brovana) mL budesonide 0.5 mg/2 mL suspension 0.5 mg (2 mL) inhalation BID #120 02/20/23 for nebulization mL compress.stocking,knee,reg,med #2 ea 02/20/23 tiotropium bromide 18 mcg capsule 1 cap inhalation DAILY #30 ea 02/20/23 with inhalation device (Spiriva with HandiHaler) prednisone 10 mg tablet 10 mg PO DAILY #14 tabs 02/27/23 ondansetron 4 mg disintegrating 4 mg PO Q8H PRN nausea and 03/04/23 tablet vomiting #20 tabs Allergies Allergy/AdvReac Type Severity Reaction Status Date / Time No Known Allergies Allergy Verified 03/04/23 03:55 [No Known Allergies*] Review of Systems Review of Systems Constitutional : No Weight loss, No Fever, No Chills ENT/Mouth : No sore throat, No Rhinorrhea Eyes: No Swelling, No Redness Cardiovascular : No Chest Pain, No SOB, NoEdema Respiratory : No Cough, No Sputum, No Wheezing Gastrointestinal : Positive Nausea, Positive Vomiting, no Diarrhea, positive abdominal Pain, No Hematochezia, No Melena Genitourinary : No Dysuria, No Urinary Frequency, No Hematuria, No Urgency Musculoskeletal : No joint pain, No Myalgias, No Joint Swelling Skin : No Skin Lesions, No rash Neuro : No Weakness, No Numbness, No Dizziness, No Headache Psych : No Anxiety/Panic, No Depression All other systems reviewed and are negative. [facility] Past Medical History Attestation statement: The following information was validated with the patient. Source: old records reviewed Medical History Left leg swelling COPD (chronic obstructive pulmonary disease) Chronic lung disease Constipation Asthma with exacerbation Hypercapnic respiratory failure Salmonella gastroenteritis Pleuritic chest pain CHITO (obstructive sleep apnea) Cor pulmonale Obesity with alveolar hypoventilation Aspiration into airway Congestive heart failure Bacteremia Acute and chronic respiratory failure with hypercapnia Morbid obesity Chronic constipation Cellulitis COPD mixed type Leukocytosis Pulmonary congestion Vomiting COPD exacerbation Acute respiratory failure Status asthmaticus with COPD (chronic obstructive pulmonary disease) Hypertensive cardiovascular disease Type 2 diabetes mellitus Morbid obesity Rib fractures Pulmonary nodule Abnormal chest x-ray Opioid dependence Limb swelling Abdominal pain Diabetes mellitus Chronic respiratory failure Poor dentition Tobacco abuse Asthma-COPD overlap syndrome Hyperlipidemia, unspecified Essential hypertension Type 2 diabetes mellitus with unspecified complications Chronic respiratory failure Hypogammaglobulinemia Surgical History H/O tubal ligation Family History Family History Father Diabetes Other Asthma Social History Social History Household Members: Family Household Members Other:: daughter Housing: Apartment Do you presently have visiting nurse or other home services: Yes Unable to assess alcohol history related to: Unknown Alcohol intake: former Comment: patient refusing bed alarm Patient Tobacco Use Status: Former Tobacco user Quit Date: February 2022 Tobacco use type: Cigarette Cigarettes Per Day: 1 Years Smoked: 35 Smoked in Last 30 Days: No e-Cigarette/Vaping Use: Currently Using Second Hand Smoke Exposure: No Use of substances other than those prescribed or required for medical reasons: No Substance Use Type: Opiates Advance Directives: Yes Advance Directives on File: Yes Advance Directives Date on File: 06/12/21 Patient : No service: No Current occupational status: unemployed and disabled Physical Exam ED Vital Signs: Vital Signs - 24 hr 03/04/23 03:43 03/04/23 04:45 03/04/23 05:04 Temperature 98.5 F Pulse Rate 119 H 113 H Respiratory Rate 20 20 19 Blood Pressure 128/76 Pulse Oximetry 97 Oxygen Delivery Method Nasal Cannula Oxygen Flow Rate 03/04/23 06:09 Temperature 98.3 F Pulse Rate 126 H Respiratory Rate 18 Blood Pressure 134/69 Pulse Oximetry Oxygen Delivery Method Room Air Oxygen Flow Rate 90 BMI result Body Mass Index 37.7 Appearance: Alert. Oriented X3. No acute distress. Eyes: Pupils equal, round and reactive to light. ENT: Pharynx normal. Neck: Normal inspection. Neck supple. CVS: tachycardic heart rate and rhythm. Pulses normal. Respiratory: No respiratory distress. Breath sounds diminished throughout Abdomen: Soft and mild epigastric/RUQ ttp no rebound it is distended. Skin: Skin warm and dry. Normal skin color. Normal skin turgor. Extremities: trace pitting edema bilaterally . No calf ttp Neuro: Oriented X 3. No motor deficit. No sensory deficit. Course Course Course Narrative: leukocytosis is chronic due to steroid use and not infection or severe sepsis tachycardia likely due to nebs and vomiting not infection or severe sepsis Reevaluation(s) Reevaluation #1: patient is on her chronic home CPAP it is not rescue Medical Decision Making Medical Decision Making MDM Narrative: 53 yo female well known to us hx of COPD, chronic resp failure home use of CPAP, aspiration pneumonia, chronic smoker, methadone use, DM, here with c/o upper abdominal pain and n/v - at this time will need labs, bronchodilattor protocol, zofran, CT scan for biliary colic, pancreatitis - could be viral syndrome as well vs gastritis. Differential Diagnosis Differential Diagnoses: The differential diagnosis associated with the presentation includes gastritis, viral syndrome, biliary colic, pancreatitis Admission/Observation Consideration of admission/observation: Escalation of care including admission/observation considered patient states she feels better and wants to go home at this time, offered admission but she refused. repleted magnesium tolerating PO Lab Data [facility] Lab Attestation statement: I reviewed the patient's lab results. 03/04/23 04:36 03/04/23 04:36 Labs: Lab Results 03/04/23 03/04/23 03/04/23 Range/Units 04:24 04:36 04:39 WBC 21.0 H (4.8-10.8) X10*3/uL RBC 4.23 (4.20-5.50) X10*6/uL Hgb 12.8 (12.0-16.0) g/dl Hct 40.6 (37.0-47.0) % MCV 96.0 (80.0-98.0) fL MCH 30.3 (27.0-33.0) pg MCHC 31.5 (31.0-35.0) g/dl RDW 14.2 (11.0-16.0) % Plt Count 244 (160-400) X10*3/uL MPV 9.1 L (9.4-12.3) fL Immature Gran % (Auto) 1.4 H (0.0-0.4) % Neut % (Auto) 87.8 H (45-73) % Lymph % (Auto) 5.3 L (20-40) % [place] % (Auto) 5.1 (2-11) % Eos % (Auto) 0.1 (0-4) % Baso % (Auto) 0.3 (0-2) % Lymph # (Auto) 1.1 L (1.2-4.9) X10*3/uL [place] # (Auto) 1.1 (0.1-1.2) X10*3/uL Eos # (Auto) 0.0 (0.0-0.4) X10*3/uL Baso # (Auto) 0.1 (0.0-0.2) X10*3/uL Abs Immat Gran (auto) 0.29 H (0.00-0.03) X10*3/uL Absolute Neuts (auto) 18.4 H (2.0-8.3) x10*3/uL Absolute Nucleated RBC 0.000 (0.0-0.012) X10*3/uL Nucleated RBC % (auto) 0.0 (0.0-0.2) /100WBC VBG pH 7.45 H (7.32-7.43) VBG pCO2 56 mmHg VBG pO2 60 mmHg VBG HCO3 39 H (22-26) mmol/L VBG O2 Saturation 88.0 % VBG Base Excess 13.4 mmol/L Sodium 144 (135-145) mmol/L Potassium 4.1 (3.3-5.1) mmol/L Chloride 96 (96-108) mmol/L Carbon Dioxide 34 H (22-29) mmol/L Anion Gap 18 (12-20) BUN 26 H (9-16) mg/dL Creatinine 0.78 (0.5-1.4) mg/dL Estim Creat Clear Calc 85.3 Estimated GFR > 60 Random Glucose 139 H (60-115) mg/dL Calcium 10.4 H D (8.4-10.2) mg/dL Magnesium 1.3 L* (1.6-2.6) mg/dL Total Bilirubin 0.2 (0.0-1.0) mg/dL Direct Bilirubin < 0.2 (0.0-0.5) mg/dL AST 16 (5-31) U/L ALT 21 (0-31) U/L Alkaline Phosphatase 49 (39-117) U/L Troponin I High Sens 9.0 (<3.5-17.0) ng/L B-Natriuretic Peptide < 10 (<100) pg/mL Total Protein 7.1 (6.5-8.0) g/dL Albumin 4.0 (3.5-5.0) g/dL Lipase 27 (8-78) U/L Urine Color Urine Appearance Urine pH (5.0-9.0) Ur Specific [place] (1.005-1.025) Urine Protein (Neg-Trace) mg/dL Urine Glucose (UA) (Negative) mg/dL Urine Ketones (Negative) mg/dL Urine Blood (Negative) Urine Nitrite (Negative) Ur Leukocyte Esterase (Negative) Influenza Type A (PCR) NEGATIVE (Negative) Influenza Type B (PCR) NEGATIVE (Negative) RSV RNA Qual (PCR) NEGATIVE (Negative) SARS-CoV-2 RNA (RT-PCR) NEGATIVE (Negative) 03/04/23 Range/Units 06:08 WBC (4.8-10.8) X10*3/uL RBC (4.20-5.50) X10*6/uL Hgb (12.0-16.0) g/dl Hct (37.0-47.0) % MCV (80.0-98.0) fL MCH (27.0-33.0) pg MCHC (31.0-35.0) g/dl RDW (11.0-16.0) % Plt Count (160-400) X10*3/uL MPV (9.4-12.3) fL Immature Gran % (Auto) (0.0-0.4) % Neut % (Auto) (45-73) % Lymph % (Auto) (20-40) % [place] % (Auto) (2-11) % Eos % (Auto) (0-4) % Baso % (Auto) (0-2) % Lymph # (Auto) (1.2-4.9) X10*3/uL [place] # (Auto) (0.1-1.2) X10*3/uL Eos # (Auto) (0.0-0.4) X10*3/uL Baso # (Auto) (0.0-0.2) X10*3/uL Abs Immat Gran (auto) (0.00-0.03) X10*3/uL Absolute Neuts (auto) (2.0-8.3) x10*3/uL Absolute Nucleated RBC (0.0-0.012) X10*3/uL Nucleated RBC % (auto) (0.0-0.2) /100WBC VBG pH (7.32-7.43) VBG pCO2 mmHg VBG pO2 mmHg VBG HCO3 (22-26) mmol/L VBG O2 Saturation % VBG Base Excess mmol/L Sodium (135-145) mmol/L Potassium (3.3-5.1) mmol/L Chloride (96-108) mmol/L Carbon Dioxide (22-29) mmol/L Anion Gap (12-20) BUN (9-16) mg/dL Creatinine (0.5-1.4) mg/dL Estim Creat Clear Calc Estimated GFR Random Glucose (60-115) mg/dL Calcium (8.4-10.2) mg/dL Magnesium (1.6-2.6) mg/dL Total Bilirubin (0.0-1.0) mg/dL Direct Bilirubin (0.0-0.5) mg/dL AST (5-31) U/L ALT (0-31) U/L Alkaline Phosphatase (39-117) U/L Troponin I High Sens (<3.5-17.0) ng/L B-Natriuretic Peptide (<100) pg/mL Total Protein (6.5-8.0) g/dL Albumin (3.5-5.0) g/dL Lipase (8-78) U/L Urine Color Yellow Urine Appearance Clear Urine pH 6.5 (5.0-9.0) Ur Specific [place] >= 1.030 H (1.005-1.025) Urine Protein Negative (Neg-Trace) mg/dL Urine Glucose (UA) Negative (Negative) mg/dL Urine Ketones Negative (Negative) mg/dL Urine Blood Negative (Negative) Urine Nitrite Negative (Negative) Ur Leukocyte Esterase Negative (Negative) Influenza Type A (PCR) (Negative) Influenza Type B (PCR) (Negative) RSV RNA Qual (PCR) (Negative) SARS-CoV-2 RNA (RT-PCR) (Negative) Independent Interpretation I performed an independent interpretation of an: EKG and CT Scan (no acute findings) Interpretation: Rate: 119 Rhythm: sinus tachycardia [place]: normal Normal P waves. Normal SHAHNAZ. Normal QRS complex. ST T wave : normal no MIO qTC: normal prior studies: no acute ischemia The study has been interpreted contemporaneously by me. . Radiology Impression Discussion of test interpretation with radiology: I have reviewed the radiologist's reading. Independent Historian Clinical information obtained from an independent historian. History obtained from or confirmed by: EMS External Record Review External record reviewed: Inpatient record Prescription Management I considered prescription management with: Other Medications Administered Generic Name Dose Route Start Last Admin Trade Name Freq PRN Reason Stop Dose Admin Magnesium Sulfate 2 gm in 50 mls @ 25 mls/hr 03/04/23 05:02 03/04/23 05:10 Magnesium Sulfate/H2o IV 03/04/23 07:01 25 mls/hr ONCE ONE Administration Discontinued Medications Generic Name Dose Route Start Last Admin Trade Name Freq PRN Reason Stop Dose Admin Albuterol Sulfate 2.5 mg/ 0 mg 03/04/23 04:39 03/04/23 04:45 Albuterol/Ipratropium 3 ml INHALE 03/04/23 04:40 5 dose ONCE ONE Administration Iohexol 100 ml 03/04/23 05:59 03/04/23 06:00 Iohexol 350 Mg/Ml 100 Ml Infus..Btl IV 03/04/23 06:00 100 ml ONCE ONE Administration Ondansetron HCl 4 mg 03/04/23 03:59 03/04/23 04:38 Ondansetron Hcl 4 Mg/2 Ml Vial IVPUSH 03/04/23 04:00 4 mg ONCE ONE Administration Discharge Plan Discharge Clinical Impression: Hypomagnesemia Vomiting Qualifiers: Vomiting type: unspecified Nausea presence: with nausea Qualified Code(s): R 11.2 - Nausea with vomiting, unspecified Abdominal pain Qualifiers: Abdominal location: epigastric Qualified Code(s): R10.13 - Epigastric pain Patient Disposition: Home, Self-Care Instructions: Acute Nausea and Vomiting (ED), Abdominal Pain (ED), Hypomagnesemia (ED) Additional Instructions: eat bland food. return for worsening pain, fevers, vomiting, inability to eat or drink or any other concerns. please be careful wearing your mask if you feel like you might vomit. you can come back at any time if you feel sick. do not eat the food you had last night. comer comida blanda. Regrese si el dolor empeora, fiebre, v?mitos, incapacidad para comer o beber o cualquier otra inquietud. Tenga cuidado al usar motta mascarilla si siente que puede vomitar. Puedes regresar en cualquier momento si te sientes enfermo. No comas la comida que comiste anoche. Prescriptions: New ondansetron 4 mg tablet,disintegrating 4 mg PO Q8H PRN (Reason: nausea and vomiting) Qty: 20 0RF No Action ipratropium-albuterol 0.5 mg-3 mg(2.5 mg base)/3 mL solution for nebulization 3 ml PO Q4H PRN (Reason: for wheezing) Qty: 540 6RF sodium chloride 7 % solution for nebulization 4 ml inhalation BID Qty: 240 11RF omeprazole 40 mg capsule,delayed release(DR/EC) 40 mg PO DAILY@0630 30 Days Qty: 30 6RF gabapentin 300 mg capsule 300 mg PO BID Qty: 60 11RF albuterol sulfate [ProAir HFA] 90 mcg/actuation HFA aerosol inhaler 2 puff inhalation Q4H PRN (Reason: Shortness Of Breath Or Wheezing) Qty: 1 0RF diltiazem HCl [Tiadylt ER] 360 mg capsule,extended release 24 hr 360 mg PO DAILY rosuvastatin 5 mg tablet 5 mg PO BEDTIME roflumilast [Daliresp] 500 mcg tablet 500 mcg PO DAILY metformin 500 mg tablet extended release 24 hr 1,000 mg PO BID hydralazine 25 mg tablet 25 mg PO TIDWM insulin lispro 100 unit/mL solution 4 unit subcut TIDAC methadone 10 mg/mL Concentrate 50 mg PO DAILY Patient Comments: FOR[facility]LY [facility] [place] [facility] PT'S VNA PICKS UP AND ADMINISTERS simethicone [Gas Relief (simethicone)] 80 mg Tablet,Chewable 80 mg PO QIDWMHS PRN (Reason: Abdominal Distention) Qty: 30 0RF lamotrigine 150 mg tablet 150 mg PO BID alendronate 70 mg tablet 70 mg PO QWEEK lidocaine 5 % adhesive patch,medicated 1 patch topical DAILY Rx Instructions: APPLY FOR 12 HOURS THEN REMOVE FOR 12 HOURS cholecalciferol (vitamin D3) 1,250 mcg (50,000 unit) capsule 1,250 mcg PO WE@0900 calcitonin (salmon) 200 unit/actuation spray,non-aerosol 1 spray intranasal DAILY Rx Instructions: one nostril every day, alternate sides. insulin glargine [Lantus U-100 Insulin] 100 unit/mL solution 35 unit subcut BEDTIME docusate sodium 100 mg capsule 100 mg PO BID PRN (Reason: constipation) zolpidem 5 mg tablet 5 mg PO BEDTIME PRN (Reason: Sleep) azathioprine 50 mg Tablet 50 mg PO DAILY prednisone 10 mg tablet 10 mg PO DAILY Qty: 14 0RF Rx Instructions: Take prednisone to 10 mg 2tablets (20mg) for 5 days Then take prednisone 10 mg 1 tablet daily for 4 more days clonazepam 1 mg tablet 1 mg PO BID PRN (Reason: Anxiety) bupropion HCl 100 mg tablet 100 mg PO DAILY Serevent Diskus 50 mcg/dose blister with device 1 inh INHALATION BID polyethylene glycol 3350 [Miralax] 17 gram/dose powder 17 g PO DAILY diclofenac potassium 50 mg Tablet 50 mg PO TID PRN (Reason: Pain) lisinopril 10 mg Tablet 10 mg PO DAILY 30 Days Qty: 30 0RF Protocol: Hold for SBP< HOLD for SBP < : 90 ammonium lactate 12 % lotion 1 appl topical DAILY PRN (Reason: Rash) furosemide [Lasix] 20 mg tablet 40 mg PO DAILY montelukast 10 mg tablet 10 mg PO BEDTIME loratadine [Claritin] 10 mg tablet 10 mg PO DAILY (DME) compress.stocking,knee,reg,med Misc See Rx Instructions .Route Qty: 2 0RF Rx Instructions: 15-20 cm arformoterol [Brovana] 15 mcg/2 mL solution for nebulization 2 ml inhalation Q12H 30 Days Qty: 120 11RF budesonide 0.5 mg/2 mL suspension for nebulization 0.5 mg inhalation BID Qty: 120 11RF tiotropium bromide [Spiriva with HandiHaler] 18 mcg capsule, w/inhalation device 1 cap inhalation DAILY Qty: 30 11RF (DME) nebulizers Misc See Rx Instructions .ROUTE Rx Instructions: As directed voriconazole 200 mg tablet 200 mg PO Q12H 30 Days Qty: 60 1RF Rx Instructions: administer on empty stomach, at least 1 hour before or after meal(s) folic acid 1 mg tablet 1 mg PO DAILY 30 Days Qty: 30 6RF Print Language: Micronesian
[2023-03-04] MEDS: ondansetron HCL 4 MG/2 ML VIAL IVPUSH (04:38)
[2023-03-04 04:40] LABS: Basophils Absolute Auto 0.1 X10*3/uL (0.0-0.2); Basophils Percent Auto 0.3 % (0-2); Eosinophils Percent Auto 0.1 % (0-4); Hematocrit 40.6 % (37.0-47.0); Hemoglobin 12.8 g/dl (12.0-16.0); Imm Gran Abs Auto 0.29 X10*3/uL (0.00-0.03); Imm Gran Pct Auto 1.4 % (0.0-0.4); Lymphocytes Absolute Auto 1.1 X10*3/uL (1.2-4.9); Lymphocytes Percent Auto 5.3 % (20-40); MANUAL DIFF FLAG NO; Mean Corpuscular HGB Conc 31.5 g/dl (31.0-35.0); Mean Corpuscular Hemoglobin 30.3 pg (27.0-33.0); Mean Platelet Volume 9.1 fL (9.4-12.3); Monocytes Absolute Auto 1.1 X10*3/uL (0.1-1.2); Monocytes Percent Auto 5.1 % (2-11); Neutrophils Absolute Auto 18.4 x10*3/uL (2.0-8.3); Neutrophils Percent Auto 87.8 % (45-73); Platelet Count 244 X10*3/uL (160-400); Red Blood Count 4.23 X10*6/uL (4.20-5.50); Red Cell Distribution Width 14.2 % (11.0-16.0)
[2023-03-04 04:44] LABS: Venous Blood Gas Refer to POC result
[2023-03-04 04:45] VITALS: PULSE 113; RESP 20; O2SAT 97
[2023-03-04 04:45] LABS: VBG Base Excess 13.4 mmol/L; VBG HCO3 39 mmol/L (22-26); VBG pCO2 56 mmHg; VBG pH 7.45 (7.32-7.43); VBG pO2 60 mmHg
[2023-03-04] MEDS: Albuterol Sulfate 2.5 MG, Albuterol/Iprat 2.5/0.5MG 3 ML 3 ML INHALE (04:45)
[2023-03-04 05:00] LABS: Alanine Aminotransferase 21 U/L (0-31); Alkaline Phosphatase 49 U/L (39-117); Anion Gap 18 (12-20); Aspartate Amino Transferase 16 U/L (5-31); Bilirubin Direct < 0.2 mg/dL (0.0-0.5); Bilirubin Total 0.2 mg/dL (0.0-1.0); Blood Urea Nitrogen 26 mg/dL (9-16); Calcium 10.4 mg/dL (8.4-10.2); Carbon Dioxide 34 mmol/L (22-29); Chloride 96 mmol/L (96-108); Creatinine Clr Calc Pharmacy 85.3; Estimated Glomerular Filt Rate > 60; Glucose Random 139 mg/dL (60-115); Lipase 27 U/L (8-78); Magnesium 1.3 mg/dL (1.6-2.6); Potassium 4.1 mmol/L (3.3-5.1); Sodium 144 mmol/L (135-145); Total Protein 7.1 g/dL (6.5-8.0)
[2023-03-04 05:01] LABS: B Type Natriuretic Peptide < 10 pg/mL (<100)
[2023-03-04 05:04] VITALS: PULSE 119; RESP 19; O2SAT 94
[2023-03-04] MEDS: Magnesium Sulfate/H2O 2 GM/50 ML PIGGYBACK IV (05:10)
[2023-03-04 05:20] LABS: Influenza A PCR NEGATIVE (Negative); Influenza B PCR NEGATIVE (Negative); Resp Syncy Virus RNA Qual PCR NEGATIVE (Negative); SARS COV2 PCR INHOUSE NEGATIVE (Negative)
[2023-03-04] MEDS: iohexoL 350 MG/ML 100 ML INFUS..BTL IV (06:00)
[2023-03-04 06:09] VITALS: BP 134/69; PULSE 126; RESP 18; TEMP 36.8
[2023-03-04 06:12] LABS: Appearance Urine Clear; Color Urine Yellow; Glucose Urine UA Negative (Negative); Leukocyte Esterase Urine Negative (Negative); Nitrite Urine Negative (Negative); PH 6.5 (5.0-9.0); Specific Gravity - Urine >= 1.030 (1.005-1.025); Urine Blood Negative (Negative); Urine Ketones Negative (Negative); Urine Protein Negative (Neg-Trace)
[2023-03-04 07:14] VITALS: BP 128/78; PULSE 110; RESP 18; O2SAT 94
--- NOTE | 2023-03-04 07:15 | PC.NURSE ---
PT SITTING IN BED, NON LABORED RESP, PLAN IS FOR DISCHARGE HOME/ AWAITING RIDE
--- NOTE | 2023-03-04 08:28 | PC.NURSE ---
PT WAITING FOR HER DAUGHTER FOR TRANSPORT HOME
== END 2023-03-04 09:01 | disposition home or self-care (01) ==
PROVIDERS: Emergency Provider Emergency Medicine; PCP Family Medicine
DX: E83.42 Hypomagnesemia (principal); R11.2 Nausea with vomiting, unspecified; R10.13 Epigastric pain; R00.0 Tachycardia, unspecified; R06.02 Shortness of breath; F17.200 Nicotine dependence, unspecified, uncomplicated; Z20.822 Contact with and (suspected) exposure to COVID-19; Z20.828 Contact with and (suspected) exposure to other viral communicable diseases; Z71.6 Tobacco abuse counseling; Z79.899 Other long term (current) drug therapy
CPT/HCPCS: 0241U; 36415; 74177; 80048; 80076; 81003; 82803; 83690; 83735; 83880; 84484; 85025; 93005; 94640; 96365; 96366; 96375; 99285; J2405; J3475; Q9967

== ENCOUNTER → 2023-03-04 03:57 | Outpatient (BNV) | payer MEDICAID, SELFPAY | PROVIDERS: Emergency Provider Emergency Medicine; PCP Family Medicine; Visit Provider Internal Medicine Cardiovascular Disease | DX: I47.11 Inappropriate sinus tachycardia, so stated (principal) | CPT/HCPCS: 93010 ==

== ENCOUNTER 2023-03-07 09:56 | Outpatient (RCR) | payer MEDICAID, SELFPAY | END 2023-05-16 07:16 | disposition home or self-care (01) | LOC: HO.PR 09:56 | PROVIDERS: PCP Family Medicine; Visit Provider Hospitalist | DX: J44.9 Chronic obstructive pulmonary disease, unspecified (principal) | CPT/HCPCS: 99215 ==

== ENCOUNTER 2023-03-20 09:40 | Outpatient (REF) | payer MEDICAID, SELFPAY | END 2023-03-20 09:41 | disposition home or self-care (01) | LOC: HO.MDS 09:40 | PROVIDERS: Visit Provider Hospitalist | DX: D80.1 Nonfamilial hypogammaglobulinemia (principal) | CPT/HCPCS: 96365; 96366; J1569 ==

== ENCOUNTER 2023-03-27 09:47 | Outpatient (AMB) | payer MEDICAID, SELFPAY ==
[2023-03-27 10:01] VITALS: PULSE 92; O2SAT 95; BMI 37.8
--- NOTE | 2023-03-27 10:01 | A.OFFVIS_ITS ---
Intake Vital Signs 03/27/23 10:01 Height 5 ft 1 in Weight 200 lb BMI 37.8 Pulse 92 Pulse Source Pulse Oximeter Pulse Oximetry (%) 95 Oxygen Delivery Method Room Air Comment 2.5 Liters Oxygen([facility]) Intake Visit Reasons: Shortness of Breath Buggy Operator Required: No Allergies No Known Allergies [No Known Allergies*] Allergy (Verified 03/27/23 10:04) HPI HPI Comments History of Present Illness Details The patient is a 53-year-old woman with a known history of asthma COPD overlap syndrome, chronic hypercarbic and hypoxic respiratory failure currently on oxygen and also on a noninvasive ventilator. She has been on high doses of prednisone currently on chronic steroids for ongoing respiratory issues. Recently she was placed on a prednisone taper. She is down to 30 mg at this time. She does respond well to noninvasive ventilator which she uses at nighttime and also as needed. Today she appears to be more dyspneic in appearance. It was apparent that her pulse ox was stable at 97% on her current oxygen however she was significantly tachycardic up to the 130s. I did offer her to get x-rays labs in an EKG today but, the patient opted on getting the tomorrow. I explained to her her symptoms worsen she is to go to the ER to be evaluated. We also talked about her respiratory failure where appears to be getting worse. The patient benefits from a wheelchair to help her with transportation and her appointments. She also may benefit from a sip and puff device as an accessory to noninvasive ventilator which she could potentially use it outside of the home for her progressive respiratory failure. She has been taking theophylline. Had planned to increase her theophylline. however, with the increased heart rate will hold off at this time. herABG from May 2019 demonstrated a pH 7.44 with a pCO2 of 69. Her bicarb also has been elevated at 41. Once we optimize her respiratory therapy with noninvasive ventilator will recheck her blood gas. In the meantime will check a theophylline level and also increase her theophylline level accordingly. Patient did develop worsening respiratory symptoms approximately 3-4 weeks ago. Therefore we will have her get checked for the SARS CoV 2 IgG antibodies. Unfortunately, the patient continues to smoke. We did talk about smoking cessation. Her is going to try to quit and once he quits he is not going to provide her with anymore cigarettes which should be very effective and helping her quit smoking. 12/19/2022 the patient is here for andrea escudero follow-up visit. He is in the hospital. She has been complaining of a right lower extremity pain. She had another Doppler which was negative for DVT. Her legs indeed swollen and somewhat erythematous. She is also having pain in the bottom referred. Breathing flowers she is still having hard time breathing. She is trying to use her noninvasive ventilator during the daytime. Her blood gases overall have been reassuring although her CO2 continues to climb slowly. Her bicarb is also elevated. Therefore will try some Diamox to see we can decrease the bicarb in order to be able to be released at additional CO2. If she tolerates the use of Diamox for 3 days we can also consider adding in the small dose 3 times a week. Will readdress that with repeat blood work in a venous gas in 2 weeks and then will have her see follow-up in 3 weeks. She also ended up getting the sip and puff device although she has not been able to use it because the pressures are too high. Will have to further adjust the pressures according. Since she left the hospital she has been on 40 mg of prednisone. Just yesterday she dropped down to 30 mg because she should really be at a baseline of 20 mg. She will then taper down weeks time to 25 and then again to 20 mg. We will increase her azathioprine that she is taking in order to try to minimize her steroid use and she can increase that to 100 mg. She is taking folate and will add biotin because she will have further hair loss. Unfortunately, even with all these issues the patient continues to smoke cigarettes. She understands that all this medications will being vain if she continues to smoke cigarettes worsening overall health. 01/14/2023 the patient is here for allison nuno follow-up visit. She has been having hard time with the breathing. She is been getting worse. She called initially last week because of the worsening respiratory symptoms. She had bloo d work done demonstrating chronic hypercarbic respiratory failure and hypoxia with a normal pH which is reassuring. She continues use her noninvasive ventilator at nighttime and also during the daytime. She was started on a prednisone taper and also given a course of levofloxacin for her worsening cough and chest congestion. Was also noted that during the hospitalizations her microbiology was positive for Aspergillus. The patient has been on immunomodulator therapies and also cortical steroids therefore significantly immunocompromised. Therefore, it is reasonable to treat the Aspergillus as a potential pathogen. Will finish the course of Levaquin and then she can start the voriconazole. The patient will going to wean down the prednisone down to 20 mg and will continue taking the Imuran 100 mg. the theophylline levels were undetected although she was told to stop the theophylline when she was in a hospital. Therefore will hold off on theophylline specially with other adverse effects in all the potential medication interactions. We did talk about the severity of her disease. She has end-stage respiratory failure. The patient will need to continue to use the ventilator during the nighttime and also during the daytime. Explained to them that has a battery life about 8 hours and therefore she can not carry the ventilator with her with a fullface mask and she can use it. The mouthpiece, sip and puff, did not work well for her she could not get a good seal and tolerated. Therefore will just continue using the fullface mask for now. If her condition continues to worsen did talk about briefly about a tracheostomy but she understands that this comes with other potential adverse effects and potential complications. 01/30/2023 the patient is here for a pulmonary follow-up visit. She is feeling better. She is down to 30 mg of prednisone. Has not been able to get lower than that. I had sent her a prescription for high dose Imuran but she has not been able to get as of yet. I will resubmit again to the pharmacy. When she is on the higher dose of Imuran hopefully we can decrease her prednisone some. She continues on the IVIG infusions. The patient did start the voriconazole although difficult for her to tolerated. She will continue to take it for now. She continues with her aggressive respiratory therapy. She still has excess lower extremity swelling specially the right lower extremity. We already did Doppler studies ruling out DVT. However, if the leg continues to be swollen I did advise her to go see urgent medical advice to get a repeat ultrasound. In the meantime will increase her diuretic to see if we can improve her volume status and therefore improve the lower extremity edema. The patient also is aware that this area can get infected. If it appears to be more erythematous she can always call her primary care doctor urgent care to be evaluated for cellulitis. The patient continues use her noninvasive ventilator. She is with it all night and seems to be tolerating it well during the daytime as well. The patient does have advanced respiratory failure and at this point she will require assistance from her noninvasive ventilator between 12-16 hours a day we did talk about the portability of the noninvasive ventilator that she can use it outside of the home with a battery life of 6-8 hours. 02/20/2023 the patient is here for a pulm onary follow-up visit. Overall she is doing better. She continues on 20 mg of prednisone. Sometimes she does take an additional 1. She also increase the amiodarone 200 mg daily. Although does not seem to be accurate at the pharmacy. I will resend that again for the right amount of medication. She did complete the voriconazole already. She has been getting the IVIG infusions. She is going to go today for next dose. She will get that every months. She is also working on quitting smoking which is reassuring. She is also using the noninvasive ventilator which she seems to be tolerating better. Overall she is in a better state. She is getting out another ultrasound of her lower extremity to rule out DVT. I did give her prescription for compression stockings that she should use in case her lower extremity Dopplers comes back negative again for clots. If it does have a clot she should avoid using the compression stockings until she sees the ordering physician. The patient does continue to use her respiratory therapy. She has been using her oxygen with good effect. The oxygen has been affecting beneficial. She is willing to start pulmonary rehabilitation at this time. 03/27/2023 the patient is here for pulmon kota follow-up visit. The patient continues to do fairly well. She continues on the prednisone. Unfortunately she has not been able to get down below 30 mg. Typically takes 20 mg in the morning and 10 mg at nighttime. She did complete the voriconazole. And we also increase the Imuran. Seems to be tolerating it well although she still needs the prednisone because if she does not take it she feels like her breathing is getting worse. She has been using noninvasive ventilator with good effect. She is cutting down the smoking which is reassuring but she is still smoking. She continues IVIG therapy. This has been very helpful specially with immunocompromised state and minimizing hospitalizations. The patient also is going to start participating in pulmonary rehabilitation which I believe is a great option for her. She will get a flu shot today she will follow-up in about 4 weeks. [facility] Medical History Left leg swelling COPD (chronic obstructive pulmonary disease) Chronic lung disease Constipation Asthma with exacerbation Hypercapnic respiratory failure Salmonella gastroenteritis Pleuritic chest pain CHITO (obstructive sleep apnea) Cor pulmonale Obesity with alveolar hypoventilation Aspiration into airway Congestive heart failure Bacteremia Acute and chronic respiratory failure with hypercapnia Morbid obesity Chronic constipation Cellulitis COPD mixed type Leukocytosis Pulmonary congestion Vomiting COPD exacerbation Acute respiratory failure Status asthmaticus with COPD (chronic obstructive pulmonary disease) Hypertensive cardiovascular disease Type 2 diabetes mellitus Morbid obesity Rib fractures Pulmonary nodule Abnormal chest x-ray Opioid dependence Limb swelling Abdominal pain Diabetes mellitus Chronic respiratory failure Poor dentition Tobacco abuse Asthma-COPD overlap syndrome Hyperlipidemia, unspecified Essential hypertension Type 2 diabetes mellitus with unspecified complications Chronic respiratory failure Hypogammaglobulinemia Surgical History H/O tubal ligation Family History Father Diabetes Other Asthma Social History Household Members: Family Household Members Other:: daughter Housing: Apartment Do you presently have visiting nurse or other home services: Yes Unable to assess alcohol history related to: Unknown Alcohol intake: former Comment: patient refusing bed alarm Patient Tobacco Use Status: Former Tobacco user Quit Date: February 2022 Tobacco use type: Cigarette Cigarettes Per Day: 1 Years Smoked: 35 e-Cigarette/Vaping Use: Currently Using Second Hand Smoke Exposure: No Substance Use Type: Opiates Advance Directives Date on File: 06/12/21 service: No Current occupational status: unemployed and disabled Review of Systems Const Denies night sweats ENT Denies change in voice, Denies lip swelling, Denies mouth pain, Reports nasal congestion, Reports nasal discharge and Denies tongue swelling Card Denies chest pain, Reports leg edema, Reports dyspnea and Reports dyspnea on exertion Resp Denies change in phlegm color, Denies chest congestion, Reports cough, Denies hemoptysis, Reports dyspnea, Reports dyspnea on exertion and Reports wheezing GI Reports abdominal pain Musc Denies no additional complaints Skin/Breast Denies pruritus and Denies lesions Neuro Denies Neuro-related abnormal movements Psych Denies no additional complaints Blade/Lymph Denies easy bleeding and Denies lymphadenopathy Aller/Immun Denies lip swelling, Denies tongue swelling and Reports wheezing Physical Exam Vital Signs: Last Vital Signs Pulse 92 03/27/23 10:01 Pulse Ox 95 03/27/23 10:01 Oxygen Delivery Method Room Air 03/27/23 10:01 BMI result Body Mass Index 37.8 Last Vital Signs Temp 98.3 F 08/04/21 12:00 Pulse 102 H 08/04/21 12:00 Resp 20 08/04/21 12:00 BP 140/73 H 08/04/21 12:00 Pulse Ox 94 08/04/21 12:00 Oxygen Flow Rate 35 08/03/21 20:00 BMI result Body Mass Index 36.9 Const General: comfortable and alert HEENT Head: Yes normocephalic Neck Neck: Yes normal visual inspection, Yes full ROM and Yes no lymphadenopathy Chest Chest palpation & inspection: normal inspection of the chest Resp Effort & Inspection: normal respiratory effort and prolonged expiratory phase Auscultation: diminished lung sounds Cardio Rate: regular rate Rhythm: regular rhythm Heart sounds: S1 normal heart sound present and S2 normal heart sound present GI Palpation (GI): Soft to palpation and nontender Auscultation: normal bowel sounds Skin General skin exam: rashes and/or lesions noted Extrem Right lower extremity: lower leg Details: erythema and warmth Office Procedures Flu Questionnaire Does the patient have a severe egg allergy?: No Does the patient have severe life threatening allergies?: No Does the patient have a fever or illness today?: No Has the patient ever had Guillain-[place] Syndrome?: No Has the patient ever had any past reaction to a flu shot?: No Immunizations flu vacc [id number] 6mos up(PF) 60 mcg(15 mcgx4)/0.5 mL IM syringe Performing Provider: Allan Brito MD [place]forming [place] [facility] Administered by: Tatiana Smith LPN on 03/27/23 10:35 Dose Route Admin Location Dispensed Lot Number Expiration Date NDC Regulatory Consultant 0.5 mL IM Left Deltoid 0.5 mL [id number] 09/14/23 [id number] [employer] VIS Given Date VIS Provided VIS Publication Date 03/27/23 Single Vaccine 20 Eligibility Eligibility Date Funding Source Not [facility] Eligible 03/27/23 Private Assessment & Plan Assessment & Plan (1) COPD (chronic obstructive pulmonary disease): Code(s): J44.9 - Chronic obstructive pulmonary disease, unspecified Qualifiers: COPD type: chronic bronchitis Chronic bronchitis type: simple Qualified Code(s): J41.0 - Simple chronic bronchitis (2) Left leg swelling: Code(s): M79.89 - Other specified soft tissue disorders (3) Asthma-COPD overlap syndrome: Code(s): J44.9 - Chronic obstructive pulmonary disease, unspecified (4) Chronic respiratory failure: Code(s): J96.10 - Chronic respiratory failure, unspecified whether with hypoxia or hypercapnia Qualifiers: Respiratory failure complication: hypoxia and hypercapnia Qualified Code(s): J96.11 - Chronic respiratory failure with hypoxia; J96.12 - Chronic respiratory failure with hypercapnia (5) Hypercapnic respiratory failure: Code(s): J96.92 - Respiratory failure, unspecified with hypercapnia Qualifiers: Chronicity: chronic Qualified Code(s): J96.12 - Chronic respiratory failure with hypercapnia (6) Tobacco abuse: Code(s): Z72.0 - Tobacco use (7) Hypogammaglobulinemia: Code(s): D80.1 - Nonfamilial hypogammaglobulinemia Plan continue NIV while sleeping and while awake. Mouth piece not helpful, will use FM continue prednisone 20mg daily, sometimes takes 30mg bactrim PCP prophylaxis continue Imuran 100mg daily, monitor liver enzymes respiratory therapy, Nebs QID Needs to quit smoking, cutting down continue IVIG every 4 weeks Daliresp continue Lasix daily stopped Voriconazole restart pulmonary rehab F/U 4 weeks Orders: Orders Influenza [id number] Immunization Today J44.9 - Chronic obstructive pulmonary disease, unspecified Quality Reporting (2019) Adult ([facility] 138/05/08/68) Smoking risk assessment performed?: Yes Patient Tobacco Use Status: Former Tobacco user Coding Level of Care Code Est Pt Level 4 (69851) Diagnoses Simple chronic bronchitis J41.0 COPD type: chronic bronchitis Chronic bronchitis type: simple Left leg swelling M79.89 Asthma-COPD overlap syndrome J44.9 Chronic respiratory failure with hypoxia and hypercapnia J96.11; J96.12 Respiratory failure complication: hypoxia and hypercapnia Chronic respiratory failure with hypercapnia J96.12 Chronicity: chronic Tobacco abuse Z72.0 Hypogammaglobulinemia D80.1 Time Spent (min) 17
== END 2023-03-27 10:24 | disposition home or self-care (01) ==
PROVIDERS: PCP Family Medicine; Referring Provider Family Medicine; Visit Provider Hospitalist
DX: Z23 Encounter for immunization (principal); J41.0 Simple chronic bronchitis; J96.11 Chronic respiratory failure with hypoxia; J96.12 Chronic respiratory failure with hypercapnia; M79.89 Other specified soft tissue disorders; D80.1 Nonfamilial hypogammaglobulinemia
CPT/HCPCS: 99214

== ENCOUNTER → 2023-03-27 09:47 | Outpatient (BNVA) | payer MEDICAID, SELFPAY | PROVIDERS: PCP Family Medicine; Visit Provider Hospitalist | DX: Z23 Encounter for immunization (principal); J44.9 Chronic obstructive pulmonary disease, unspecified; J41.0 Simple chronic bronchitis; J96.11 Chronic respiratory failure with hypoxia; J96.12 Chronic respiratory failure with hypercapnia; D80.1 Nonfamilial hypogammaglobulinemia; Z72.0 Tobacco use; M79.89 Other specified soft tissue disorders | CPT/HCPCS: 90471; 90686; 99212 ==

== ENCOUNTER 2023-04-07 17:11 | Inpatient (IN) | payer MEDICAID, SELFPAY ==
[2023-04-07] VITALS (7 sets, daily range): BP systolic 110–112; BP diastolic 52–62; PULSE 94–106; RESP 24; TEMP 36.3; O2SAT 89–96; BMI 39.6
--- NOTE | ~2023-04-07 | XR_ITS ---
EXAMINATION: XR CHEST CLINICAL INFORMATION: Dyspnea COMPARISON: Chest radiograph from 02/20/2023 TECHNIQUE: Frontal view of the chest was obtained. FINDINGS: Prominence of the pulmonary vasculature. No pneumothorax. Trachea is midline. Cardiac mediastinal silhouette is mildly enlarged. No large pleural effusion. Osseous structures are intact. Soft tissues are unremarkable. XR/XR chest 1V IMPRESSION: Prominence of the pulmonary vasculature.
--- NOTE | 2023-04-07 17:13 | ECG_ITS ---
Test Reason : DYSPNEA Blood Pressure : / mmHG Vent. Rate : 096 BPM Atrial Rate : 096 BPM P-R Int : 138 ms QRS Dur : 092 ms QT Int : 352 ms P-R-T Axes : 042 011 026 degrees QTc Int : 444 ms Poor data quality Normal sinus rhythm Borderline ECG When compared with ECG of 04-MAR-2023 04:11, Poor data quality in current ECG precludes serial comparison Referred By: Sabrina Aguirre Electronically Signed By:Harris Phillips
--- NOTE | 2023-04-07 17:27 | ED_ITS ---
HPI - Asthma General Chief Complaint: Dyspnea Stated Complaint: COPD, 89% O2 on 4L Source: patient and old records reviewed Mode of arrival: EMS Limitations: no limitations History of Present Illness HPI Narrative: 53 yo female with PMH of severe end stage COPD on home O2 and now Bipap, pneumonia, chronic R leg swelling on diuretics, chronic respiratory failure, prior intubation, DM, HTN, GERD here with c/o 2 days of cough, increased shortness of breath and wheezing not responding to her her bipap and nebs. Her daughter came home with bronchitis but not known COVID or flu. The patient denies increased sputum, pain, fevers, leg swelling. EMS found her with end tidal in 80s, increased work of breathing, she could not tolerate EMS CPAP. She reports she still has not been smoking MD complaint: asthma attack , shortness of breath and wheezing Onset (ago): day(s) Severity: severe Context: none known Associated symptoms: dry cough Asthma History: childhood onset Treatments Prior to Arrival: inhaled bronchodilator, oxygen and CPAP Related Data Home Medications Medication Instructions Recorded Confirmed loratadine 10 mg tablet (Claritin) 10 mg PO DAILY 12/30/19 02/21/23 montelukast 10 mg tablet 10 mg PO BEDTIME 12/30/19 02/21/23 diltiazem HCl 360 mg capsule,24 360 mg PO DAILY 11/16/20 02/21/23 hr,extended release (Tiadylt ER) roflumilast 500 mcg tablet 500 mcg PO DAILY 11/16/20 02/21/23 (Daliresp) rosuvastatin 5 mg tablet 5 mg PO BEDTIME 11/16/20 02/21/23 metformin 500 mg tablet,extended 1,000 mg PO BID 05/18/21 02/21/23 release 24 hr methadone 10 mg/mL oral concentrate 50 mg PO DAILY 06/06/21 02/21/23 hydralazine 25 mg tablet 25 mg PO TIDWM 11/02/21 02/21/23 insulin lispro 100 unit/mL 4 unit subcut TIDAC 11/02/21 02/21/23 subcutaneous solution clonazepam 1 mg tablet 1 mg PO BID PRN Anxiety 06/28/22 02/21/23 alendronate 70 mg tablet 70 mg PO QWEEK 07/29/22 02/21/23 lamotrigine 150 mg tablet 150 mg PO BID 07/29/22 02/21/23 lidocaine 5 % topical patch 1 patch topical DAILY 07/29/22 02/21/23 calcitonin (salmon) 200 1 spray intranasal DAILY 09/30/22 02/21/23 unit/actuation nasal spray cholecalciferol (vitamin D3) 1,250 1,250 mcg PO WE@0900 09/30/22 02/21/23 mcg (50,000 unit) capsule insulin glargine 100 unit/mL 35 unit subcut BEDTIME 09/30/22 02/21/23 subcutaneous solution (Lantus U-100 Insulin) docusate sodium 100 mg capsule 100 mg PO BID PRN constipation 10/20/22 02/21/23 zolpidem 5 mg tablet 5 mg PO BEDTIME PRN Sleep 10/20/22 02/21/23 nebulizers 11/08/22 02/02/23 bupropion HCl 100 mg tablet 100 mg PO DAILY 12/21/22 02/21/23 diclofenac potassium 50 mg tablet 50 mg PO TID PRN Pain 12/21/22 02/21/23 polyethylene glycol 3350 17 17 g PO DAILY constipation 12/21/22 02/21/23 gram/dose oral powder (Miralax) salmeterol 50 mcg/dose blister 1 inh inhalation BID 12/21/22 02/21/23 powder for inhalation (Serevent Diskus) ammonium lactate 12 % lotion 1 appl topical DAILY PRN Rash 02/02/23 02/21/23 furosemide 20 mg tablet (Lasix) 40 mg PO DAILY 02/02/23 02/21/23 azathioprine 50 mg tablet 50 mg PO DAILY 02/21/23 02/21/23 Previous Rx's Medication Instructions Recorded simethicone 80 mg chewable tablet 80 mg PO QIDWMHS PRN Abdominal 01/05/22 (Gas Relief (simethicone)) Distention #30 tabs ipratropium 0.5 mg-albuterol 3 mg 3 ml PO Q4H PRN for wheezing #540 09/02/22 (2.5 mg base)/3 mL nebulization mL soln sodium chloride 7 % for 4 ml inhalation BID #240 mL 09/20/22 nebulization folic acid 1 mg tablet 1 mg PO DAILY 30 days #30 tabs 12/19/22 lisinopril 10 mg tablet 10 mg PO DAILY 30 days #30 tabs 12/27/22 gabapentin 300 mg capsule 300 mg PO BID #60 caps 01/14/23 albuterol sulfate 90 mcg/actuation 2 puff inhalation Q4H PRN 02/19/23 aerosol inhaler (ProAir HFA) Shortness Of Breath Or Wheezing #1 ea arformoterol 15 mcg/2 mL solution 2 ml inhalation Q12H 30 days #120 02/20/23 for nebulization (Brovana) mL budesonide 0.5 mg/2 mL suspension 0.5 mg (2 mL) inhalation BID #120 02/20/23 for nebulization mL compress.stocking,knee,reg,med #2 ea 02/20/23 tiotropium bromide 18 mcg capsule 1 cap inhalation DAILY #30 ea 02/20/23 with inhalation device (Spiriva with HandiHaler) prednisone 10 mg tablet 10 mg PO DAILY #14 tabs 02/27/23 ondansetron 4 mg disintegrating 4 mg PO Q8H PRN nausea and 03/04/23 tablet vomiting #20 tabs omeprazole 40 mg capsule,delayed 40 mg PO DAILY@0630 30 days #30 03/31/23 release caps prednisone 10 mg tablet See Rx Instructions PO DAILY 18 04/04/23 days #63 tabs Allergies Allergy/AdvReac Type Severity Reaction Status Date / Time No Known Allergies Allergy Verified 03/27/23 10:04 [No Known Allergies*] Review of Systems 2 Review of Systems: Constitutional : No Fever, No Chills ENT/Mouth : No Hoarseness, No sore throat, No Rhinorrhea Eyes: No Redness, No Discharge, No Vision Changes Cardiovascular : No Chest Pain, positive SOB, positive Dyspnea on Exertion, No Edema Respiratory : positive Cough, No Sputum, positive Wheezing, Gastrointestinal : No Nausea, No Vomiting, No Diarrhea, No abdominal Pain Genitourinary : No Dysuria, No Hematuria Musculoskeletal : No joint pain, No Myalgias Skin : No rash Neuro : No Weakness, No Numbness, No Headache Psych : No anxiety, depression Heme/Lymph: No Bruising, No Bleeding Endocrine : No Polyuria, No Polydipsia All other systems reviewed and are negative PMFSH Past Medical History Attestation statement: The following information was validated with the patient. Source: old records reviewed Medical History Left leg swelling COPD (chronic obstructive pulmonary disease) Chronic lung disease Constipation Asthma with exacerbation Hypercapnic respiratory failure Salmonella gastroenteritis Pleuritic chest pain CHITO (obstructive sleep apnea) Cor pulmonale Obesity with alveolar hypoventilation Aspiration into airway Congestive heart failure Bacteremia Acute and chronic respiratory failure with hypercapnia Morbid obesity Chronic constipation Cellulitis COPD mixed type Leukocytosis Pulmonary congestion Vomiting COPD exacerbation Acute respiratory failure Status asthmaticus with COPD (chronic obstructive pulmonary disease) Hypertensive cardiovascular disease Type 2 diabetes mellitus Morbid obesity Rib fractures Pulmonary nodule Abnormal chest x-ray Opioid dependence Limb swelling Abdominal pain Diabetes mellitus Chronic respiratory failure Poor dentition Tobacco abuse Asthma-COPD overlap syndrome Hyperlipidemia, unspecified Essential hypertension Type 2 diabetes mellitus with unspecified complications Chronic respiratory failure Hypogammaglobulinemia Surgical History H/O tubal ligation Family History Family History Father Diabetes Other Asthma Social History Social History Household Members: Family Household Members Other:: daughter Housing: Apartment Do you presently have visiting nurse or other home services: Yes Unable to assess alcohol history related to: Unknown Alcohol intake: former Comment: patient refusing bed alarm Patient Tobacco Use Status: Former Tobacco user Quit Date: February 2022 Tobacco use type: Cigarette Cigarettes Per Day: 1 Years Smoked: 35 e-Cigarette/Vaping Use: Currently Using Second Hand Smoke Exposure: No Substance Use Type: Opiates Advance Directives: Yes Advance Directives on File: Yes Advance Directives Date on File: 06/12/21 service: No Current occupational status: unemployed and disabled Physical Exam 2 Vital Signs: Vital Signs: Last Vital Signs Temp 97.3 F 04/07/23 18:22 Pulse 100 04/07/23 18:22 Resp 24 H 04/07/23 18:22 BP 112/52 L 04/07/23 18:22 O2 Del Method BiPAP 04/07/23 18:22 BMI result Body Mass Index 39.6 Appearance: Alert. Oriented X3. Mild acute distress. Eyes: Pupils equal, round and reactive to light. ENT: Pharynx normal. Neck: Normal inspection. Neck supple. CVS: tachycardic heart rate and rhythm. Pulses normal. Respiratory: Mild respiratory distress - tachypnea and retractions Breath sounds very diminished throughout with poor air movement Abdomen: Soft and nontender. Skin: Skin warm and dry. Normal skin color. Normal skin turgor. Extremities: right 1+ pitting lower extremity edema. No calf ttp Neuro: Oriented X 3. No motor deficit. No sensory deficit. Course Course Course Narrative: more comfortable but more somnolent repeat ABG ordered 726pm Reevaluation(s) Reevaluation #1: patient really doesn't want to be intubated - we are giving her one more hour to declare 845pm - Shaniqua BOWERS is on board has come down to see the patient Reevaluation #2: ABG improved at this time. She does not want to be tubed. Will go to ICU she is much more awake Medications Administered Discontinued Medications Generic Name Dose Route Start Last Admin Trade Name Freq PRN Reason Stop Dose Admin Albuterol Sulfate 5 mg/ 0 mg 04/07/23 17:29 04/07/23 17:34 Albuterol/Ipratropium 3 ml INHALE 04/07/23 17:30 1 each ONCE ONE Administration Magnesium Sulfate 2 gm in 50 mls @ 25 mls/hr 04/07/23 17:13 04/07/23 20:00 Magnesium Sulfate/H2o IV 04/07/23 19:12 Infused ONCE ONE Infusion Azithromycin 500 mg/ Sodium 250 mls @ 125 mls/hr 04/07/23 17:14 04/07/23 21:35 Chloride IV 04/07/23 19:13 125 mls/hr ONCE ONE Administration Ceftriaxone Sodium 1 gm/ 50 mls @ 100 mls/hr 04/07/23 17:15 04/07/23 21:11 Sodium Chloride IV 04/07/23 17:44 100 mls/hr ONCE ONE Administration Methylprednisolone Sodium Succinate 125 mg 04/07/23 17:13 04/07/23 17:59 Methylprednisolone Sod Succ 125 Mg/2 Ml Vial IVPUSH 04/07/23 17:14 125 mg ONCE ONE Administration Medical Decision Making Medical Decision Making MDM Narrative: 53 yo female with PMH of severe end stage COPD on home O2 and now Bipap, pneumonia, chronic R leg swelling on diuretics, chronic respiratory failure, prior intubation, DM, HTN, GERD here with asthma and resp distress - she is mentating well despite likely elevated CO2. She notes daughter was sick with bronchitis. At this time will obtain labs, CXR, put her on her home bipap setting 01/09, obtain VBG start on azithromycin steroids, IV steroids and IV magnesium ordered. Anticipate admission to hospital. Frequent admissions for asthma and respiratory failure Bipap is chronic due to group home severe asthma and respiratory failure and not for infection or severe sepsis Differential Diagnosis Differential Diagnoses: The differential diagnosis associated with the presentation includes asthma, bronchitis, respiratory failure Admission/Observation Consideration of admission/observation: Escalation of care including admission/observation considered admit for work of breathing and worsening bipap trend Consult Healthcare Provider Management of the patient was discussed with: Wood Treating Inspector (ICU consult) Lab Data MDM Lab Attestation statement: I reviewed the patient's lab results. 04/07/23 17:49 04/07/23 19:47 Labs: Lab Results 04/07/23 04/07/23 04/07/23 Range/Units 17:47 17:49 17:50 WBC 18.0 H (4.8-10.8) X10*3/uL RBC 3.86 L (4.20-5.50) X10*6/uL Hgb 12.0 (12.0-16.0) g/dl Hct 39.1 (37.0-47.0) % MCV 101.3 H (80.0-98.0) fL MCH 31.1 (27.0-33.0) pg MCHC 30.7 L (31.0-35.0) g/dl RDW 14.8 (11.0-16.0) % Plt Count 270 (160-400) X10*3/uL MPV 9.1 L (9.4-12.3) fL Immature Gran % (Auto) 1.7 H (0.0-0.4) % Neut % (Auto) 87.9 H (45-73) % Lymph % (Auto) 4.5 L (20-40) % Edgar % (Auto) 5.6 (2-11) % Eos % (Auto) 0.1 (0-4) % Baso % (Auto) 0.2 (0-2) % Lymph # (Auto) 0.8 L (1.2-4.9) X10*3/uL Edgar # (Auto) 1.0 (0.1-1.2) X10*3/uL Eos # (Auto) 0.0 (0.0-0.4) X10*3/uL Baso # (Auto) 0.0 (0.0-0.2) X10*3/uL Abs Immat Gran (auto) 0.31 H (0.00-0.03) X10*3/uL Absolute Neuts (auto) 15.9 H (2.0-8.3) x10*3/uL Absolute Nucleated RBC 0.030 H (0.0-0.012) X10*3/uL Nucleated RBC % (auto) 0.2 (0.0-0.2) /100WBC Hold Purple Top O2 Saturation 88.0 % ABG pH at Pt Temp 7.27 L (7.35-7.45) ABG pCO2 at Pt Temp 92 H* (32-45) mmHg ABG pO2 at Pt Temp 63 L (83-108) mmHg ABG HCO3 42 H (22-26) mmol/L ABG Base Excess (Actual) 11.9 mmol/L Sodium 138 (135-145) mmol/L Potassium 5.8 H (3.3-5.1) mmol/L Chloride 93 L (96-108) mmol/L Carbon Dioxide 35 H (22-29) mmol/L Anion Gap 16 (12-20) BUN 41 H (9-16) mg/dL Creatinine 1.36 (0.5-1.4) mg/dL Estim Creat Clear Calc TNP Estimated GFR 41 Random Glucose 142 H (60-115) mg/dL Lactic Acid 1.2 (0.5-2.0) mmol/L Calcium 10.2 (8.4-10.2) mg/dL Magnesium 1.7 (1.6-2.6) mg/dL Total Bilirubin 0.2 (0.0-1.0) mg/dL Direct Bilirubin < 0.2 (0.0-0.5) mg/dL AST 27 (5-31) U/L ALT 25 (0-31) U/L Alkaline Phosphatase 42 (39-117) U/L Troponin I High Sens 17.9 H D (<3.5-17.0) ng/L B-Natriuretic Peptide 16 (<100) pg/mL Total Protein 7.4 (6.5-8.0) g/dL Albumin 4.0 (3.5-5.0) g/dL Lipase 36 (8-78) U/L Procalcitonin 0.09 ng/mL COVID-19 ([facility]AP[facility]) (Negative) COVID-19 Clin Com Influenza Type A (ISMAEL) (Negative) Influenza Type B (ISMAEL) (Negative) Influenza A & B Note 04/07/23 04/07/23 04/07/23 Range/Units 19:07 19:47 20:16 WBC (4.8-10.8) X10*3/uL RBC (4.20-5.50) X10*6/uL Hgb (12.0-16.0) g/dl Hct (37.0-47.0) % MCV (80.0-98.0) fL MCH (27.0-33.0) pg MCHC (31.0-35.0) g/dl RDW (11.0-16.0) % Plt Count (160-400) X10*3/uL MPV (9.4-12.3) fL Immature Gran % (Auto) (0.0-0.4) % Neut % (Auto) (45-73) % Lymph % (Auto) (20-40) % Edgar % (Auto) (2-11) % Eos % (Auto) (0-4) % Baso % (Auto) (0-2) % Lymph # (Auto) (1.2-4.9) X10*3/uL Edgar # (Auto) (0.1-1.2) X10*3/uL Eos # (Auto) (0.0-0.4) X10*3/uL Baso # (Auto) (0.0-0.2) X10*3/uL Abs Immat Gran (auto) (0.00-0.03) X10*3/uL Absolute Neuts (auto) (2.0-8.3) x10*3/uL Absolute Nucleated RBC (0.0-0.012) X10*3/uL Nucleated RBC % (auto) (0.0-0.2) /100WBC Hold Purple Top SEE NOTE O2 Saturation 86.0 % ABG pH at Pt Temp 7.23 L (7.35-7.45) ABG pCO2 at Pt Temp 97 H* (32-45) mmHg ABG pO2 at Pt Temp 61 L (83-108) mmHg ABG HCO3 41 H (22-26) mmol/L ABG Base Excess (Actual) 10.0 mmol/L Sodium (135-145) mmol/L Potassium 5.1 (3.3-5.1) mmol/L Chloride (96-108) mmol/L Carbon Dioxide (22-29) mmol/L Anion Gap (12-20) BUN (9-16) mg/dL Creatinine (0.5-1.4) mg/dL Estim Creat Clear Calc Estimated GFR Random Glucose (60-115) mg/dL Lactic Acid (0.5-2.0) mmol/L Calcium (8.4-10.2) mg/dL Magnesium (1.6-2.6) mg/dL Total Bilirubin (0.0-1.0) mg/dL Direct Bilirubin (0.0-0.5) mg/dL AST (5-31) U/L ALT (0-31) U/L Alkaline Phosphatase (39-117) U/L Troponin I High Sens (<3.5-17.0) ng/L B-Natriuretic Peptide (<100) pg/mL Total Protein (6.5-8.0) g/dL Albumin (3.5-5.0) g/dL Lipase (8-78) U/L Procalcitonin ng/mL COVID-19 ([facility]AP[facility]) Negative (Negative) COVID-19 Clin Com See Note Influenza Type A (ISMAEL) Negative (Negative) Influenza Type B (ISMAEL) Negative (Negative) Influenza A & B Note See Note 04/07/23 Range/Units 21:29 WBC (4.8-10.8) X10*3/uL RBC (4.20-5.50) X10*6/uL Hgb (12.0-16.0) g/dl Hct (37.0-47.0) % MCV (80.0-98.0) fL MCH (27.0-33.0) pg MCHC (31.0-35.0) g/dl RDW (11.0-16.0) % Plt Count (160-400) X10*3/uL MPV (9.4-12.3) fL Immature Gran % (Auto) (0.0-0.4) % Neut % (Auto) (45-73) % Lymph % (Auto) (20-40) % Edgar % (Auto) (2-11) % Eos % (Auto) (0-4) % Baso % (Auto) (0-2) % Lymph # (Auto) (1.2-4.9) X10*3/uL Edgar # (Auto) (0.1-1.2) X10*3/uL Eos # (Auto) (0.0-0.4) X10*3/uL Baso # (Auto) (0.0-0.2) X10*3/uL Abs Immat Gran (auto) (0.00-0.03) X10*3/uL Absolute Neuts (auto) (2.0-8.3) x10*3/uL Absolute Nucleated RBC (0.0-0.012) X10*3/uL Nucleated RBC % (auto) (0.0-0.2) /100WBC Hold Purple Top O2 Saturation 90.0 % ABG pH at Pt Temp 7.25 L (7.35-7.45) ABG pCO2 at Pt Temp 91 H* (32-45) mmHg ABG pO2 at Pt Temp 66 L (83-108) mmHg ABG HCO3 40 H (22-26) mmol/L ABG Base Excess (Actual) 9.3 mmol/L Sodium (135-145) mmol/L Potassium (3.3-5.1) mmol/L Chloride (96-108) mmol/L Carbon Dioxide (22-29) mmol/L Anion Gap (12-20) BUN (9-16) mg/dL Creatinine (0.5-1.4) mg/dL Estim Creat Clear Calc Estimated GFR Random Glucose (60-115) mg/dL Lactic Acid (0.5-2.0) mmol/L Calcium (8.4-10.2) mg/dL Magnesium (1.6-2.6) mg/dL Total Bilirubin (0.0-1.0) mg/dL Direct Bilirubin (0.0-0.5) mg/dL AST (5-31) U/L ALT (0-31) U/L Alkaline Phosphatase (39-117) U/L Troponin I High Sens (<3.5-17.0) ng/L B-Natriuretic Peptide (<100) pg/mL Total Protein (6.5-8.0) g/dL Albumin (3.5-5.0) g/dL Lipase (8-78) U/L Procalcitonin ng/mL COVID-19 ([facility]) (Negative) COVID-19 Clin Com Influenza Type A (ISMAEL) (Negative) Influenza Type B (ISMAEL) (Negative) Influenza A & B Note Independent Interpretation I performed an independent interpretation of an: EKG Interpretation: Rate: 96 Rhythm: NSR [place]: normal Normal P waves. Normal SHAHNAZ. Normal QRS complex. ST T wave : normal no MIO qTC: 444 prior studies: no acute ischemia The study has been interpreted contemporaneously by me. . Radiology Impression Discussion of test interpretation with radiology: I have reviewed the radiologist's reading. Independent Historian Clinical information obtained from an independent historian. History obtained from or confirmed by: EMS External Record Review External record reviewed: Inpatient record Critical Care Time Critical Care Time Critical Care Time: Yes Total Critical Care Time: 60 Attestation: NIPPV, admit for ICU I attest to this time spent taking care of the patient Discharge Plan Discharge Clinical Impression: Respiratory failure Qualifiers: Chronicity: acute on chronic Respiratory failure complication: hypoxia and hypercapnia Qualified Code(s): J96.21 - Acute and chronic respiratory failure with hypoxia Asthma Qualifiers: Asthma severity: severe Asthma persistence: persistent Asthma complication type: with acute exacerbation Qualified Code(s): J45.51 - Severe persistent asthma with (acute) exacerbation Patient Disposition: Admitted As Inpatient
[2023-04-07] MEDS: Albuterol Sulfate 5 MG, Albuterol/Iprat 2.5/0.5MG 3 ML 3 ML INHALE (17:34)
[2023-04-07 17:55] LABS: ABG Base Excess 11.9 mmol/L; ABG HCO3 42 mmol/L (22-26); ABG pCO2 92 mmHg (32-45); ABG pH 7.27 (7.35-7.45); ABG pO2 63 mmHg (83-108)
[2023-04-07 17:55] LABS: ABG Refer to POC result
[2023-04-07 17:56] LABS: MANUAL DIFF FLAG NO
[2023-04-07] MEDS: methylPREDNISolone Sod Succ 125 MG/2 ML VIAL IVPUSH (17:59)
[2023-04-07] MEDS: Magnesium Sulfate/H2O 2 GM/50 ML PIGGYBACK IV (17:59)
[2023-04-07 18:09] LABS: Lactic Acid 1.2 mmol/L (0.5-2.0)
[2023-04-07 18:11] LABS: Basophils Percent Auto 0.2 % (0-2); Eosinophils Percent Auto 0.1 % (0-4); Hematocrit 39.1 % (37.0-47.0); Imm Gran Abs Auto 0.31 X10*3/uL (0.00-0.03); Imm Gran Pct Auto 1.7 % (0.0-0.4); Lymphocytes Absolute Auto 0.8 X10*3/uL (1.2-4.9); Lymphocytes Percent Auto 4.5 % (20-40); Mean Corpuscular HGB Conc 30.7 g/dl (31.0-35.0); Mean Corpuscular Hemoglobin 31.1 pg (27.0-33.0); Mean Corpuscular Volume 101.3 fL (80.0-98.0); Mean Platelet Volume 9.1 fL (9.4-12.3); Monocytes Percent Auto 5.6 % (2-11); NRBC Pct Auto 0.2 /100WBC (0.0-0.2); Neutrophils Absolute Auto 15.9 x10*3/uL (2.0-8.3); Neutrophils Percent Auto 87.9 % (45-73); Platelet Count 270 X10*3/uL (160-400); Red Blood Count 3.86 X10*6/uL (4.20-5.50); Red Cell Distribution Width 14.8 % (11.0-16.0)
[2023-04-07 18:21] LABS: Alanine Aminotransferase 25 U/L (0-31); Alkaline Phosphatase 42 U/L (39-117); Anion Gap 16 (12-20); Aspartate Amino Transferase 27 U/L (5-31); Bilirubin Direct < 0.2 mg/dL (0.0-0.5); Bilirubin Total 0.2 mg/dL (0.0-1.0); Blood Urea Nitrogen 41 mg/dL (9-16); Calcium 10.2 mg/dL (8.4-10.2); Carbon Dioxide 35 mmol/L (22-29); Chloride 93 mmol/L (96-108); Estimated Glomerular Filt Rate 41; Glucose Random 142 mg/dL (60-115); Lipase 36 U/L (8-78); Magnesium 1.7 mg/dL (1.6-2.6); Potassium 5.8 mmol/L (3.3-5.1); Sodium 138 mmol/L (135-145); Total Protein 7.4 g/dL (6.5-8.0)
[2023-04-07 18:34] LABS: Procalcitonin 0.09 ng/mL
[2023-04-07 18:38] LABS: B Type Natriuretic Peptide 16 pg/mL (<100)
--- NOTE | 2023-04-07 19:16 | PC.NURSE ---
This RN took over pt care @ 1900. ABX not started d/t cultures still needed. Plan of care ongoing.
[2023-04-07 19:21] LABS: Troponin-I High Sensitivity 17.9 ng/L (<3.5-17.0)
[2023-04-07 19:36] LABS: IDNOW Serial# 08D9AD1C; IDNOW Serial# 152EDE1D; Influenza A Negative (Negative); Influenza B2 Negative (Negative)
[2023-04-07 19:37] LABS: COVID-19 Test Negative (Negative)
--- NOTE | 2023-04-07 19:50 | PC.NURSE ---
This RN took over pt care @ 1900 Resp with pt. Phleb with pt. Plan of care ongoing.
[2023-04-07 20:11] LABS: Potassium 5.1 mmol/L (3.3-5.1)
[2023-04-07 20:24] LABS: ABG Refer to POC result
[2023-04-07 20:24] LABS: ABG HCO3 41 mmol/L (22-26); ABG pCO2 97 mmHg (32-45); ABG pH 7.23 (7.35-7.45); ABG pO2 61 mmHg (83-108)
[2023-04-07] MEDS: cefTRIAXone sodium 1 GM in 0.9 % Sodium Chloride 50 ML IV (21:11)
[2023-04-07] MEDS: Azithromycin 500 MG in 0.9 % Sodium Chloride 250 ML 125 MG IV (21:35)
[2023-04-07 21:37] LABS: ABG Base Excess 9.3 mmol/L; ABG HCO3 40 mmol/L (22-26); ABG pCO2 91 mmHg (32-45); ABG pH 7.25 (7.35-7.45); ABG pO2 66 mmHg (83-108)
[2023-04-07 21:37] LABS: ABG Refer to POC result
--- NOTE | 2023-04-07 21:50 | PM.CCHP ---
History of Present Illness Date of Service: 04/07/23 Attending physician on admission: Rasta Geller Chief Complaint: Dyspnea The patient is a 53-year-old woman with a past medical history of asthma COPD overlap syndrome, chronic? hypercarbic and hypoxic respiratory failure currently on 3l via [place] home oxygen and newly started on BIPAP at home, on chronic steroids,? diabetes mellitus, hypertension, hyperlipidemia, tobacco use, and Hypogammaglobulinemia on IVIG,? opioid dependence on methadone who presented to emergency department with dyspnea. Patient report increasing shortness of breath and wheezing not responding to her home BiPAP and nebs.? Laboratory data significant for the WBC 18, Serum bicarb 35. ABGs initially ? 7.27/92/63/42? but after 2 hours of BiPAP she was 7.25 / 91/66/39. Patient continued mentating well. Vitals stable IMAGING:: Chest Xray: no acute infection, but some evidence of pulmonary congestion ED course:? patient received? albuterol? 5,? methylprednisolone 125mg, ceftriaxone 1g and azithromycin 500mg.? ? Patient will be admitted to ICU for acute? hypercapnic and hypoxic respiratory failure requiring BiPAP Review of Systems Review of Systems: Yes all other systems are reviewed and are negative PMFSH Past Medical History Medical History Left leg swelling COPD (chronic obstructive pulmonary disease) Chronic lung disease Constipation Asthma with exacerbation Hypercapnic respiratory failure Salmonella gastroenteritis Pleuritic chest pain CHITO (obstructive sleep apnea) Cor pulmonale Obesity with alveolar hypoventilation Aspiration into airway Congestive heart failure Bacteremia Acute and chronic respiratory failure with hypercapnia Morbid obesity Chronic constipation Cellulitis COPD mixed type Leukocytosis Pulmonary congestion Vomiting COPD exacerbation Acute respiratory failure Status asthmaticus with COPD (chronic obstructive pulmonary disease) Hypertensive cardiovascular disease Type 2 diabetes mellitus Morbid obesity Rib fractures Pulmonary nodule Abnormal chest x-ray Opioid dependence Limb swelling Abdominal pain Diabetes mellitus Chronic respiratory failure Poor dentition Tobacco abuse Asthma-COPD overlap syndrome Hyperlipidemia, unspecified Essential hypertension Type 2 diabetes mellitus with unspecified complications Chronic respiratory failure Hypogammaglobulinemia Family History Family History Father Diabetes Other Asthma Surgical History Surgical History H/O tubal ligation Social History Social History Household Members: Family Household Members Other:: daughter Housing: House Do you presently have visiting nurse or other home services: Yes Unable to assess alcohol history related to: Unknown Alcohol intake: former Comment: patient refusing bed alarm Patient Tobacco Use Status: Former Tobacco user Quit Date: February 2022 Tobacco use type: Cigarette Cigarettes Per Day: 1 Years Smoked: 35 e-Cigarette/Vaping Use: Currently Using Second Hand Smoke Exposure: No Use of substances other than those prescribed or required for medical reasons: Unknown Substance Use Type: Opiates Currently Displaying Signs/Symptoms of Drug Intoxication Withdrawal: No Advance Directives: Yes Advance Directives on File: Yes Advance Directives Date on File: 06/12/21 Do you have thoughts of harming others: None Do you have a plan to hurt others: No Plan Recently lost weight without trying: Unsure Nutrition Risks: No Nutritional Risk Patient : No service: No Current occupational status: unemployed and disabled Meds Allergies Allergy/AdvReac Type Severity Reaction Status Date / Time No Known Allergies Allergy Verified 03/27/23 10:04 [No Known Allergies*] Active Medications: Current Medications Enoxaparin Sodium (Enoxaparin Sodium 40 Mg/0.4 Ml Syringe) 40 mg SUBCUT Q24H [facility] Home Medications Medication Instructions Recorded Confirmed Last Taken Type loratadine 10 mg tablet (Claritin) 10 mg PO DAILY 12/30/19 04/08/23 02/20/23 History montelukast 10 mg tablet 10 mg PO BEDTIME 12/30/19 04/08/23 02/20/23 History diltiazem HCl 360 mg capsule,24 360 mg PO DAILY 11/16/20 04/08/23 02/20/23 History hr,extended release (Tiadylt ER) roflumilast 500 mcg tablet 500 mcg PO DAILY 11/16/20 04/08/23 02/20/23 History (Daliresp) rosuvastatin 5 mg tablet 5 mg PO BEDTIME 11/16/20 04/08/23 02/20/23 History metformin 500 mg tablet,extended 1,000 mg PO BID 05/18/21 04/08/23 02/20/23 History release 24 hr methadone 10 mg/mL oral concentrate 50 mg PO DAILY 06/06/21 04/08/23 02/20/23 09:00 History hydralazine 25 mg tablet 25 mg PO TIDWM 11/02/21 04/08/23 02/20/23 History insulin lispro 100 unit/mL 4 unit subcut TIDAC 11/02/21 04/08/23 02/02/23 09:00 History subcutaneous solution clonazepam 1 mg tablet 1 mg PO BID PRN Anxiety 06/28/22 04/08/23 Unknown History alendronate 70 mg tablet 70 mg PO QWEEK 07/29/22 04/08/23 02/16/23 History lamotrigine 150 mg tablet 150 mg PO BID 07/29/22 04/08/23 02/20/23 History lidocaine 5 % topical patch 1 patch topical DAILY 07/29/22 04/08/23 02/20/23 History calcitonin (salmon) 200 1 spray intranasal DAILY 09/30/22 04/08/23 02/20/23 History unit/actuation nasal spray cholecalciferol (vitamin D3) 1,250 1,250 mcg PO MOWE@0900 09/30/22 04/08/23 02/19/23 History mcg (50,000 unit) capsule insulin glargine 100 unit/mL 35 unit subcut BEDTIME 09/30/22 04/08/23 02/02/23 09:00 History subcutaneous solution (Lantus U-100 Insulin) docusate sodium 100 mg capsule 100 mg PO BID PRN constipation 10/20/22 04/08/23 Unknown History zolpidem 5 mg tablet 5 mg PO BEDTIME PRN Sleep 10/20/22 04/08/23 Unknown History nebulizers 11/08/22 04/08/23 02/02/23 09:00 History diclofenac potassium 50 mg tablet 50 mg PO TID PRN Pain 12/21/22 04/08/23 Unknown History polyethylene glycol 3350 17 17 g PO DAILY constipation 12/21/22 04/08/23 02/20/23 History gram/dose oral powder (Miralax) ammonium lactate 12 % lotion 1 appl topical DAILY PRN Rash 02/02/23 04/08/23 Unknown History furosemide 20 mg tablet (Lasix) 40 mg PO DAILY 02/02/23 04/08/23 02/20/23 History azathioprine 50 mg tablet 100 mg PO DAILY 02/21/23 04/08/2323 History biotin 10 mg tablet 10 mg DAILY 04/08/23 04/08/23 Unknown History ibuprofen 600 mg tablet 600 mg PO Q8H PRN pain 04/08/23 04/08/23 Unknown History prednisone 10 mg tablet 20 mg PO DAILY 04/08/23 04/08/23 Unknown History sulfamethoxazole 400 1 tab DAILY 04/08/23 04/08/23 Unknown History mg-trimethoprim 80 mg tablet Physical Exam Vital Signs: Vital Signs: Last Vital Signs Temp 97.3 F 04/07/23 18:22 Pulse 100 04/07/23 18:22 Resp 24 H 04/07/23 18:22 BP 112/52 L 04/07/23 18:22 O2 Del Method BiPAP 04/07/23 18:22 BMI result Body Mass Index 39.6 Constitutional: Patient alert and oriented x 3, on BIPAP Head: Normocephalic. Eyes: Pupils are equal, round and reactive to light. Extraocular muscles intact. Ear, Nose and Throat: Oropharynx clear, mucous membranes moist. trachea midlight Neck: Supple, Full range of motion. Respiratory:? Rhonchi, with wheezing at the bases. ? on BIPAP Carrdiovascular: Sinus tach low 100s. S1 S2 regular. No murmurs, rubs or gallops. Gastrointestinal: Abdomen soft, non-tender, slightly distended. Normal bowel sounds. Genitourinary: No costovertebral angle tenderness. Neurologic:? No focal neurological deficits. Moves all extremities spontaneously. Skin:? scattered ecchymosis on extremities? Results Labs 04/08/23 04:45 04/08/23 04:45 Labs: Laboratory Results - last 24 hr 04/07/23 04/07/23 04/07/23 17:47 17:49 17:50 MCV 101.3 H MCH 31.1 MCHC 30.7 L RDW 14.8 Plt Count 270 MPV 9.1 L Immature Gran % (Auto) 1.7 H Neut % (Auto) 87.9 H Lymph % (Auto) 4.5 L [place] % (Auto) 5.6 Eos % (Auto) 0.1 Baso % (Auto) 0.2 Lymph # (Auto) 0.8 L [place] # (Auto) 1.0 Eos # (Auto) 0.0 Baso # (Auto) 0.0 Abs Immat Gran (auto) 0.31 H Absolute Neuts (auto) 15.9 H Absolute Nucleated RBC 0.030 H Nucleated RBC % (auto) 0.2 Hold Purple Top O2 Saturation 88.0 ABG pH at Pt Temp 7.27 L ABG pCO2 at Pt Temp 92 H* ABG pO2 at Pt Temp 63 L ABG HCO3 42 H ABG Base Excess (Actual) 11.9 Anion Gap 16 Estim Creat Clear Calc TNP Estimated GFR 41 Random Glucose 142 H Lactic Acid 1.2 Calcium 10.2 Magnesium 1.7 Total Bilirubin 0.2 Direct Bilirubin < 0.2 AST 27 ALT 25 Alkaline Phosphatase 42 B-Natriuretic Peptide 16 Total Protein 7.4 Albumin 4.0 Lipase 36 Procalcitonin 0.09 COVID-19 (PAPO) COVID-19 Clin Com Influenza Type A (ISMAEL) Influenza Type B (ISMAEL) Influenza A & B Note 04/07/23 04/07/23 04/07/23 19:07 19:47 20:16 MCV MCH MCHC RDW Plt Count MPV Immature Gran % (Auto) Neut % (Auto) Lymph % (Auto) [place] % (Auto) Eos % (Auto) Baso % (Auto) Lymph # (Auto) [place] # (Auto) Eos # (Auto) Baso # (Auto) Abs Immat Gran (auto) Absolute Neuts (auto) Absolute Nucleated RBC Nucleated RBC % (auto) Hold Purple Top SEE NOTE O2 Saturation 86.0 ABG pH at Pt Temp 7.23 L ABG pCO2 at Pt Temp 97 H* ABG pO2 at Pt Temp 61 L ABG HCO3 41 H ABG Base Excess (Actual) 10.0 Anion Gap Estim Creat Clear Calc Estimated GFR Random Glucose Lactic Acid Calcium Magnesium Total Bilirubin Direct Bilirubin AST ALT Alkaline Phosphatase B-Natriuretic Peptide Total Protein Albumin Lipase Procalcitonin COVID-19 (PAPO) Negative COVID-19 Clin Com See Note Influenza Type A (ISMAEL) Negative Influenza Type B (ISMAEL) Negative Influenza A & B Note See Note 04/07/23 21:29 MCV MCH MCHC RDW Plt Count MPV Immature Gran % (Auto) Neut % (Auto) Lymph % (Auto) [place] % (Auto) Eos % (Auto) Baso % (Auto) Lymph # (Auto) [place] # (Auto) Eos # (Auto) Baso # (Auto) Abs Immat Gran (auto) Absolute Neuts (auto) Absolute Nucleated RBC Nucleated RBC % (auto) Hold Purple Top O2 Saturation 90.0 ABG pH at Pt Temp 7.25 L ABG pCO2 at Pt Temp 91 H* ABG pO2 at Pt Temp 66 L ABG HCO3 40 H ABG Base Excess (Actual) 9.3 Anion Gap Estim Creat Clear Calc Estimated GFR Random Glucose Lactic Acid Calcium Magnesium Total Bilirubin Direct Bilirubin AST ALT Alkaline Phosphatase B-Natriuretic Peptide Total Protein Albumin Lipase Procalcitonin COVID-19 (PAPO) COVID-19 Clin Com Influenza Type A (ISMAEL) Influenza Type B (ISMAEL) Influenza A & B Note Imaging Radiologist's Impressions: Impressions Chest X-Ray 04/07/23 19:55 IMPRESSION: Prominence of the pulmonary vasculature. Assessment and Plan (1) Acute on chronic respiratory failure with hypoxia and hypercapnia: Status: Resolved (2) Pulmonary edema: Status: Resolved (3) COPD (chronic obstructive pulmonary disease): Qualifiers: COPD type: chronic bronchitis Chronic bronchitis type: simple Qualified Code(s): J41.0 - Simple chronic bronchitis Status: Acute (4) Obesity with alveolar hypoventilation: Status: Acute Plan 53-year-old female? with asthma COPD overlap syndrome, chronic hypoxic and hypercapnic respiratory failure on home O2,? who presented to the emergency room? admitted for? acute hypercapnic and hypoxic respiratory failure requiring BiPAP support Plan: Neuro:? No acute issues. Cardiac:?? Pulmonary congestion:? and chest x-ray with evidence of some congestion.? She has chronic? elevated bicarb, Will give diamox.? Monitor for diuresing. Last echo in 2021, will repeat echo in the morning? Pulmonary:?? acute hypoxic and hypercapnic respiratory failure secondary to COPD exacerbation.? She is chronically on prednisone,? received systemic glucocorticoids in ED. Will cont? systemic? glucocorticoids, nebulized bronchodilators, and azithromycin.? Renal:? No acute issues.?? Endo:? No acute issues.?? GI:?? No acute issues ID:? Leukocytosis,? this is likely due to chronic steroid.? No signs of active infection. Received antibiotics in ED. Will cont azithromycin per copd exac.?? Heme/Onc:? No acute issues. Psych:? No acute issues. Miscellaneous:? No acute issues. Prophylaxis:? lovenox? Diet:? NPO while on BIPAP Critical care time spent:? 60 minutes Case discussed with attending Dr Geller
[2023-04-07 21:57] LABS: Appearance Urine Clear; Color Urine Yellow; Glucose Urine UA 100 mg/dL (Negative); Leukocyte Esterase Urine Negative (Negative); Nitrite Urine Negative (Negative); PH 5.5 (5.0-9.0); Specific Gravity - Urine 1.015 (1.005-1.025); Urine Blood Negative (Negative); Urine Ketones Negative (Negative); Urine Protein Trace mg/dL (Neg-Trace)
[2023-04-07] MEDS: Enoxaparin Sodium 40 MG/0.4 ML SYRINGE SUBCUT (22:12)
[2023-04-07] MEDS: acetaZOLAMIDE sodium 500 MG VIAL IVPUSH (22:12)
[2023-04-07 22:23] LABS: Glucose, Whole Blood 301 mg/dL (60-115)
--- NOTE | 2023-04-07 22:30 | PC.NURSE ---
Pt medicated per may. Plan of care ongoing.
[2023-04-08] VITALS (35 sets, daily range): BP systolic 107–146; BP diastolic 57–92; PULSE 83–122; RESP 14–27; TEMP 36.3–37.6; O2SAT 86–96; BMI 37.5
[2023-04-08 00:29] LABS: Glucose, Whole Blood 253 mg/dL (60-115)
[2023-04-08 00:29] LABS: ABG Base Excess 9.2 mmol/L; ABG HCO3 40 mmol/L (22-26); ABG pCO2 94 mmHg (32-45); ABG pH 7.23 (7.35-7.45); ABG pO2 56 mmHg (83-108)
[2023-04-08] MEDS: Insulin Lispro 100 UNIT/ML 3 ML VIAL SUBCUT ×4 (00:32→16:53)
[2023-04-08 00:35] LABS: ABG Refer to POC result
[2023-04-08] MEDS: Albuterol Sulfate 5 MG, Albuterol Sulfate (0.083%) 2.5 MG 7.5 MG INHALE (01:01)
[2023-04-08 02:26] LABS: ABG Base Excess 10.3 mmol/L; ABG HCO3 41 mmol/L (22-26); ABG pCO2 92 mmHg (32-45); ABG pH 7.25 (7.35-7.45); ABG pO2 61 mmHg (83-108)
[2023-04-08 02:35] LABS: ABG Refer to POC result
--- NOTE | 2023-04-08 03:36 | PC.NURSE ---
Pt admitted to ICU at approx 0000. Upon initial assessment- pt A&Ox4 but lethargic, calm/cooperative, MC. Afebrile. NSR on tele, HR 90s with occasional PACs. BiPAP placed on pt- see assessment. Repeat ABGs ordered and completed by RT- ROBINSON Sabillon aware of results. Remains NPO on NIV. Urinary catheter inserted per order. Skin overall intact. Pt aware of plan of care. Bed locked in low position, call lu in reach.
[2023-04-08 04:51] LABS: VBG Base Excess 10.4 mmol/L; VBG HCO3 39 mmol/L (22-26); VBG pCO2 75 mmHg; VBG pH 7.32 (7.32-7.43); VBG pO2 55 mmHg
[2023-04-08 04:58] LABS: Venous Blood Gas Refer to POC result
[2023-04-08 05:07] LABS: Basophils Percent Auto 0.1 % (0-2); Hematocrit 39.4 % (37.0-47.0); Hemoglobin 11.9 g/dl (12.0-16.0); Imm Gran Abs Auto 0.19 X10*3/uL (0.00-0.03); Imm Gran Pct Auto 1.1 % (0.0-0.4); Lymphocytes Absolute Auto 0.5 X10*3/uL (1.2-4.9); Lymphocytes Percent Auto 2.7 % (20-40); MANUAL DIFF FLAG SCAN; Mean Corpuscular HGB Conc 30.2 g/dl (31.0-35.0); Mean Corpuscular Hemoglobin 30.9 pg (27.0-33.0); Mean Corpuscular Volume 102.3 fL (80.0-98.0); Mean Platelet Volume 9.3 fL (9.4-12.3); Monocytes Absolute Auto 0.3 X10*3/uL (0.1-1.2); Monocytes Percent Auto 1.9 % (2-11); Neutrophils Absolute Auto 15.9 x10*3/uL (2.0-8.3); Neutrophils Percent Auto 94.2 % (45-73); Platelet Count 222 X10*3/uL (160-400); Red Blood Count 3.85 X10*6/uL (4.20-5.50); Red Cell Distribution Width 14.6 % (11.0-16.0); SCAN SMEAR FLAG 1; White Blood Count 16.8 X10*3/uL (4.8-10.8)
[2023-04-08 05:22] LABS: Albumin Level 3.8 g/dL (3.5-5.0); Anion Gap 14 (12-20); Blood Urea Nitrogen 29 mg/dL (9-16); Calcium 9.4 mg/dL (8.4-10.2); Carbon Dioxide 34 mmol/L (22-29); Chloride 96 mmol/L (96-108); Creatinine Clr Calc Pharmacy 79.1; Estimated Glomerular Filt Rate > 60; Glucose Random 222 mg/dL (60-115); Magnesium 2.3 mg/dL (1.6-2.6); Phosphorus 3.7 mg/dL (2.7-4.5); Potassium 5.3 mmol/L (3.3-5.1); Sodium 139 mmol/L (135-145)
[2023-04-08 05:26] LABS: SLIDE REVIEW VERIFIED
--- NOTE | 2023-04-08 07:00 | CA_ITS ---
Transthoracic Echocardiogram Patient (Last, First, Middle): Anju Tanner I Gender: Female Date of : 1970 Age: 53 Procedure Date: 04/08/2023 Procedure Type: Transthoracic Echocardiogram Location: ICU Height: 154.94 cm Weight: 89.81 kg BSA: 1.88 m2 Heart Rate: bpm BP: 140 / 65 mmHg Farm Consultant: SB Referring MD: Shaniqua Sabillon NP Symptoms: Pulm congestion/ Acute resp failure Study Quality: Poor ECG Rhythm: Sinus Conclusions: - Technically limited study. - LVEF preserved. Indeterminate filling pressures. - Mildly increased right ventricular cavity size. There is normal right ventricular systolic function. Findings Procedure Information Contrast agent, definity, is being given per protocol without apparent complications. The quality of the study was technically difficult. The study quality is limited by the patients inability to tolerate the test, patients body habitus, and lung artifact. Left Ventricle Normal left ventricular size and systolic function. The visually estimated ejection fraction is between 60-65%. There is no evidence of regional wall motion abnormalities. Abnormal diastolic function is noted. Spectral Doppler is indicative of an impaired relaxation filling pattern. E/E prime ratio is between 8 and 15 consistent with indeterminate filling pressures. Right Ventricle Mildly increased right ventricular cavity size. There is normal right ventricular systolic function. Atria The left atrium was not well visualized. Aortic Valve The aortic valve was not well visualized. There is no aortic valve stenosis. Mitral Valve The mitral valve was not well visualized. There is no mitral valve regurgitation. There is no mitral valve stenosis. Tricuspid Valve The tricuspid valve was not well visualized. Tricuspid regurgitation envelope is inadequate for calculation of right ventricular systolic pressure. Normal right atrial pressure. Great Vessels All visible segments of the aorta are normal in size. Venous The inferior vena cava is normal in size and collapses greater than 50% with inspiration. Pericardium/Pleural There is no evidence of pericardial effusion. Prior Study Comparison No significant change compared to prior study dated: 04/10/2022. Measurements 2D Linear Measurements LA Diam: 3.50 2.7-3.8/3.0-4.0 cm LAIDs Index: 1.86 1.5-2.3 cm/m2 Mitral Valve MV Pk E: 0.77 MV PK A: 0.90 MV Decel Time: 115.00 E/A: 0.90 E'Lateral: 7.07 E'Medial: 6.85 E/E' Med: 11.20 E/E' Lat: 10.80 PHT: 34.00 MVA PHT: 6.47 Decel Castro: 6.65 Aortic Valve AoV Pk Andrea: 1.89 AoV Mn Andrea: 1.20 AoV VTI: 0.29 AoV Pk Grad: 14.00 Aov Mn Grad: 7.00 LVOT LVOT Pk Andrea: 1.65 LVOT Mn Andrea: 1.06 LVOT VTI: 0.25 LVOT Pk Grad: 11.00 LVOT Mn Grad: 6.00 Diastolic Function MV Pk E: 0.77 MV Pk A: 0.90 E/A: 0.90 E'Medial: 6.85 E/E' Med: 11.20 E' Laterial: 7.07 E/E' Lat: 10.80 Tricuspid Valve RA Press: 3.00 Great Vessels Aorta Ao Asc: 3.10 2.1-3.4 cm Updated in Other Vendor System with Status of Final Harris Phillips MD electronically signed on 04/08/2023 10:38:13 AM with status of Final
--- NOTE | 2023-04-08 07:43 | PHA.MEDREC ---
Pharmacy Consult ? Medication Reconciliation RN has completed the medication reconciliation. Pharmacy reviewed. Reviewed claim history and recent MD notes
[2023-04-08] MEDS: Albuterol/Iprat 2.5/0.5MG 3 ML AMPUL.NEB INHALE ×4 (08:20→20:26)
[2023-04-08] MEDS: methylPREDNISolone Sod Succ 125 MG/2 ML VIAL 40 MG IVPUSH (08:30)
[2023-04-08] MEDS: acetaZOLAMIDE sodium 500 MG VIAL IVPUSH ×2 (08:30→20:14)
--- NOTE | 2023-04-08 08:43 | P.PNCC_ITS ---
Subjective Subjective Date of Service: 04/08/23 Interval History: 52-year-old lady with underlying obesity, CHITO with hypoventilation syndrome with significant CO2 retention, on home supplemental oxygen at 3 L BiPAP at night, asthma/COPD syndrome, diabetes mellitus, opioid dependence on methadone, with multiple admissions for respiratory failure admitted on 04/07/2023 with acute on chronic hypoxic hypercapnic respiratory failure requiring rescue BiPAP. Patient admitted to intensive care unit and started diuresis with acetazolamide with some improvement overnight. Critical Care Time (minutes): 45 Physical Exam 2 Vital Signs: Vital Signs: Last Vital Signs Temp 97.5 F 04/08/23 08:00 Pulse 95 04/08/23 08:24 Resp 21 H 04/08/23 08:24 BP 126/74 04/08/23 08:00 Pulse Ox 95 04/08/23 08:00 O2 Del Method BiPAP 04/08/23 08:00 FiO2 35 04/08/23 08:00 BMI result Body Mass Index 37.5 Const: General: no acute distress, alert and awake Nutritional Appearance: obese and Edematous Eyes: Sclerae: sclerae normal EOM: EOMs intact bilaterally Neck: Neck: Yes no lymphadenopathy, Yes trachea midline and Yes supple Resp: Effort & Inspection: normal respiratory effort and no respiratory distress Auscultation: clear to auscultation bilaterally Cardio: Rate: regular rate Rhythm: regular rhythm Heart sounds: no gallops, no murmurs and no rubs GI: Palpation (GI): Soft to palpation and Other GI palpation findings present ( Nontender) Auscultation: normal bowel sounds Extrem: General: No clubbing, No cyanosis and Yes edema (1+ bilateral) Objective Data Labs 04/08/23 04:45 04/08/23 04:45 Labs: Laboratory Results - last 24 hr 04/07/23 04/07/23 04/07/23 17:47 17:49 17:50 WBC 18.0 H RBC 3.86 L Hgb 12.0 Hct 39.1 MCV 101.3 H MCH 31.1 MCHC 30.7 L RDW 14.8 Plt Count 270 MPV 9.1 L Immature Gran % (Auto) 1.7 H Neut % (Auto) 87.9 H Lymph % (Auto) 4.5 L [place] % (Auto) 5.6 Eos % (Auto) 0.1 Baso % (Auto) 0.2 Lymph # (Auto) 0.8 L [place] # (Auto) 1.0 Eos # (Auto) 0.0 Baso # (Auto) 0.0 Abs Immat Gran (auto) 0.31 H Absolute Neuts (auto) 15.9 H Absolute Nucleated RBC 0.030 H Nucleated RBC % (auto) 0.2 Smear Tech's Comments Hold Purple Top O2 Saturation 88.0 ABG pH at Pt Temp 7.27 L ABG pCO2 at Pt Temp 92 H* ABG pO2 at Pt Temp 63 L ABG HCO3 42 H ABG Base Excess (Actual) 11.9 VBG pH VBG pCO2 VBG pO2 VBG HCO3 VBG O2 Saturation VBG Base Excess Sodium 138 Potassium 5.8 H Chloride 93 L Carbon Dioxide 35 H Anion Gap 16 BUN 41 H Creatinine 1.36 Estim Creat Clear Calc TNP Estimated GFR 41 POC Glucose Random Glucose 142 H Lactic Acid 1.2 Calcium 10.2 Phosphorus Magnesium 1.7 Total Bilirubin 0.2 Direct Bilirubin < 0.2 AST 27 ALT 25 Alkaline Phosphatase 42 Troponin I High Sens 17.9 H D B-Natriuretic Peptide 16 Total Protein 7.4 Albumin 4.0 Lipase 36 Procalcitonin 0.09 Urine Color Urine Appearance Urine pH Ur Specific [place] Urine Protein Urine Glucose (UA) Urine Ketones Urine Blood Urine Nitrite Ur Leukocyte Esterase COVID-19 (PAPO) COVID-19 Clin Com Influenza Type A (ISMAEL) Influenza Type B (ISMAEL) Influenza A & B Note 04/07/23 04/07/23 04/07/23 19:07 19:47 20:16 WBC RBC Hgb Hct MCV MCH MCHC RDW Plt Count MPV Immature Gran % (Auto) Neut % (Auto) Lymph % (Auto) [place] % (Auto) Eos % (Auto) Baso % (Auto) Lymph # (Auto) [place] # (Auto) Eos # (Auto) Baso # (Auto) Abs Immat Gran (auto) Absolute Neuts (auto) Absolute Nucleated RBC Nucleated RBC % (auto) Smear Tech's Comments Hold Purple Top SEE NOTE O2 Saturation 86.0 ABG pH at Pt Temp 7.23 L ABG pCO2 at Pt Temp 97 H* ABG pO2 at Pt Temp 61 L ABG HCO3 41 H ABG Base Excess (Actual) 10.0 VBG pH VBG pCO2 VBG pO2 VBG HCO3 VBG O2 Saturation VBG Base Excess Sodium Potassium 5.1 Chloride Carbon Dioxide Anion Gap BUN Creatinine Estim Creat Clear Calc Estimated GFR POC Glucose Random Glucose Lactic Acid Calcium Phosphorus Magnesium Total Bilirubin Direct Bilirubin AST ALT Alkaline Phosphatase Troponin I High Sens B-Natriuretic Peptide Total Protein Albumin Lipase Procalcitonin Urine Color Urine Appearance Urine pH Ur Specific [place] Urine Protein Urine Glucose (UA) Urine Ketones Urine Blood Urine Nitrite Ur Leukocyte Esterase COVID-19 (PAPO) Negative COVID-19 Clin Com See Note Influenza Type A (ISMAEL) Negative Influenza Type B (ISMAEL) Negative Influenza A & B Note See Note 04/07/23 04/07/23 04/07/23 21:29 21:49 22:18 WBC RBC Hgb Hct MCV MCH MCHC RDW Plt Count MPV Immature Gran % (Auto) Neut % (Auto) Lymph % (Auto) [place] % (Auto) Eos % (Auto) Baso % (Auto) Lymph # (Auto) [place] # (Auto) Eos # (Auto) Baso # (Auto) Abs Immat Gran (auto) Absolute Neuts (auto) Absolute Nucleated RBC Nucleated RBC % (auto) Smear Tech's Comments Hold Purple Top O2 Saturation 90.0 ABG pH at Pt Temp 7.25 L ABG pCO2 at Pt Temp 91 H* ABG pO2 at Pt Temp 66 L ABG HCO3 40 H ABG Base Excess (Actual) 9.3 VBG pH VBG pCO2 VBG pO2 VBG HCO3 VBG O2 Saturation VBG Base Excess Sodium Potassium Chloride Carbon Dioxide Anion Gap BUN Creatinine Estim Creat Clear Calc Estimated GFR POC Glucose 301 H Random Glucose Lactic Acid Calcium Phosphorus Magnesium Total Bilirubin Direct Bilirubin AST ALT Alkaline Phosphatase Troponin I High Sens B-Natriuretic Peptide Total Protein Albumin Lipase Procalcitonin Urine Color Yellow Urine Appearance Clear Urine pH 5.5 Ur Specific [place] 1.015 Urine Protein Trace Urine Glucose (UA) 100 H Urine Ketones Negative Urine Blood Negative Urine Nitrite Negative Ur Leukocyte Esterase Negative COVID-19 (PAPO) COVID-19 Clin Com Influenza Type A (ISMAEL) Influenza Type B (ISMAEL) Influenza A & B Note 04/08/23 04/08/23 04/08/23 00:23 00:25 02:20 WBC RBC Hgb Hct MCV MCH MCHC RDW Plt Count MPV Immature Gran % (Auto) Neut % (Auto) Lymph % (Auto) [place] % (Auto) Eos % (Auto) Baso % (Auto) Lymph # (Auto) [place] # (Auto) Eos # (Auto) Baso # (Auto) Abs Immat Gran (auto) Absolute Neuts (auto) Absolute Nucleated RBC Nucleated RBC % (auto) Smear Tech's Comments Hold Purple Top O2 Saturation 83.0 86.0 ABG pH at Pt Temp 7.23 L 7.25 L ABG pCO2 at Pt Temp 94 H* 92 H* ABG pO2 at Pt Temp 56 L 61 L ABG HCO3 40 H 41 H ABG Base Excess (Actual) 9.2 10.3 VBG pH VBG pCO2 VBG pO2 VBG HCO3 VBG O2 Saturation VBG Base Excess Sodium Potassium Chloride Carbon Dioxide Anion Gap BUN Creatinine Estim Creat Clear Calc Estimated GFR POC Glucose 253 H Random Glucose Lactic Acid Calcium Phosphorus Magnesium Total Bilirubin Direct Bilirubin AST ALT Alkaline Phosphatase Troponin I High Sens B-Natriuretic Peptide Total Protein Albumin Lipase Procalcitonin Urine Color Urine Appearance Urine pH Ur Specific [place] Urine Protein Urine Glucose (UA) Urine Ketones Urine Blood Urine Nitrite Ur Leukocyte Esterase COVID-19 (PAPO) COVID-19 Clin Com Influenza Type A (ISMAEL) Influenza Type B (ISMAEL) Influenza A & B Note 04/08/23 04:45 WBC 16.8 H RBC 3.85 L Hgb 11.9 L Hct 39.4 MCV 102.3 H MCH 30.9 MCHC 30.2 L RDW 14.6 Plt Count 222 MPV 9.3 L Immature Gran % (Auto) 1.1 H Neut % (Auto) 94.2 H Lymph % (Auto) 2.7 L [place] % (Auto) 1.9 L Eos % (Auto) 0.0 Baso % (Auto) 0.1 Lymph # (Auto) 0.5 L [place] # (Auto) 0.3 Eos # (Auto) 0.0 Baso # (Auto) 0.0 Abs Immat Gran (auto) 0.19 H Absolute Neuts (auto) 15.9 H Absolute Nucleated RBC 0.000 Nucleated RBC % (auto) 0.0 Smear Tech's Comments VERIFIED Hold Purple Top O2 Saturation ABG pH at Pt Temp ABG pCO2 at Pt Temp ABG pO2 at Pt Temp ABG HCO3 ABG Base Excess (Actual) VBG pH 7.32 VBG pCO2 75 VBG pO2 55 VBG HCO3 39 H VBG O2 Saturation 85.0 VBG Base Excess 10.4 Sodium 139 Potassium 5.3 H Chloride 96 Carbon Dioxide 34 H Anion Gap 14 BUN 29 H Creatinine 0.84 Estim Creat Clear Calc 79.1 Estimated GFR > 60 POC Glucose Random Glucose 222 H Lactic Acid Calcium 9.4 D Phosphorus 3.7 Magnesium 2.3 Total Bilirubin Direct Bilirubin AST ALT Alkaline Phosphatase Troponin I High Sens B-Natriuretic Peptide Total Protein Albumin 3.8 Lipase Procalcitonin Urine Color Urine Appearance Urine pH Ur Specific [place] Urine Protein Urine Glucose (UA) Urine Ketones Urine Blood Urine Nitrite Ur Leukocyte Esterase COVID-19 (PAPO) COVID-19 Clin Com Influenza Type A (ISMAEL) Influenza Type B (ISMAEL) Influenza A & B Note Progress Note: A&P Assessment and plan (1) Acute and chronic respiratory failure with hypercapnia: Status: Acute (2) Obesity with alveolar hypoventilation: Status: Acute (3) Opioid dependence: Status: Acute (4) Type 2 diabetes mellitus: Status: Acute Plan Assessment: 53-year-old lady with underlying obesity, CHITO, chronic CO2 retention, asthma/COPD overlap admitted with acute on chronic respiratory failure with hypoxia and hypercapnia Plan: Neuro: No acute issues. Cardiac: No acute issues. Pulmonary: Acute on chronic respiratory failure with hypoxia and hypercapnia requiring BiPAP support. Continue to titrate off as tolerated. Continue acetazolamide. Renal: No acute issues. Endo: No acute issues. GI: No acute issues. Underlying diabetes mellitus. ID: No acute issues Heme/Onc: No acute issues. Psych: No acute issues. Miscellaneous: Underlying opioid dependence on methadone. Prophylaxis: Lovenox Diet: NPO while on BiPAP Critical care time spent: 45 minute Quality Stroke Does the patient have a stroke diagnosis?: No VTE Prior VTE?: No VTE Risk Level:: Medical - moderate - high VTE Device Contraindication: N/A - Device Ordered VTE Drug Contraindication: N/A - Med Ordered
--- NOTE | 2023-04-08 09:54 | HE.PHANOTE ---
RE: METHADONE patient gets methadone with [facility]. Patient last dosed with clinic on 04/02 with 50 mg. However patient was given enough take home bottles to take doses up to 04/12. RN Confirmed with patient that they took their 50 mg take home bottle last yesterday 04/07
[2023-04-08 11:37] LABS: Venous Blood Gas Refer to POC result
[2023-04-08 11:38] LABS: VBG Base Excess 11.7 mmol/L; VBG HCO3 39 mmol/L (22-26); VBG pCO2 65 mmHg; VBG pH 7.38 (7.32-7.43); VBG pO2 83 mmHg
[2023-04-08 12:04] LABS: Glucose, Whole Blood 204 mg/dL (60-115)
[2023-04-08] MEDS: methADONE HCl 20 MG/2 ML ORAL.CONC 50 MG PO (12:34)
[2023-04-08] MEDS: Acetaminophen 325 MG TABLET 650 MG PO (12:38)
--- NOTE | 2023-04-08 13:49 | MHC.CM.PN ---
Met with pt to discuss d/c planning needs: pt states she lives alone but has her dtr stay with her and has [employer] care provided by dtr and dtr in law. Pt unsure of weekly hours. Pt uses a walker and O2 concentrator along with a CPAP. O2 needs supplied by [facility]. Pt has cell at bedside and will call [employer] for transport to home but may need BLS. Discussed [facility] needs for respiratory assessment to which pt declined. CM to follow for changes in D/C plans. IMM in chart: HCP on file and verified: PCP Dr. Benavides
[2023-04-08] MEDS: Insulin Glargine,Hum.rec.anlog 100 UNIT/ML 10 ML VIAL 20 UNIT SUBCUT (14:10)
[2023-04-08 16:40] LABS: Glucose, Whole Blood 228 mg/dL (60-115)
[2023-04-08 17:20] LABS: ABG Base Excess 8.3 mmol/L; ABG HCO3 36 mmol/L (22-26); ABG pCO2 64 mmHg (32-45); ABG pH 7.35 (7.35-7.45); ABG pO2 59 mmHg (83-108)
[2023-04-08 17:54] LABS: ABG Refer to POC result
[2023-04-08] MEDS: dilTIAZem HCL CD 180 MG CAP.ER.24H 360 MG PO (17:54)
[2023-04-08] MEDS: Azithromycin 500 MG in 0.9 % Sodium Chloride 250 ML 125 MG IV (20:13)
[2023-04-08] MEDS: Enoxaparin Sodium 40 MG/0.4 ML SYRINGE SUBCUT (20:14)
[2023-04-08 21:06] LABS: Glucose, Whole Blood 154 mg/dL (60-115)
[2023-04-08 23:50] LABS: Glucose, Whole Blood 159 mg/dL (60-115)
[2023-04-09] VITALS (16 sets, daily range): BP systolic 119–169; BP diastolic 65–89; PULSE 82–126; RESP 18–22; TEMP 36.1–37.4; O2SAT 92–100; BMI 38.2
[2023-04-09 06:46] LABS: MANUAL DIFF FLAG NO
[2023-04-09 06:53] LABS: Basophils Percent Auto 0.2 % (0-2); Eosinophils Percent Auto 0.1 % (0-4); Hemoglobin 12.2 g/dl (12.0-16.0); Imm Gran Abs Auto 0.21 X10*3/uL (0.00-0.03); Imm Gran Pct Auto 1.1 % (0.0-0.4); Lymphocytes Absolute Auto 1.2 X10*3/uL (1.2-4.9); Lymphocytes Percent Auto 6.5 % (20-40); Mean Corpuscular HGB Conc 31.3 g/dl (31.0-35.0); Mean Corpuscular Hemoglobin 30.9 pg (27.0-33.0); Mean Corpuscular Volume 98.7 fL (80.0-98.0); Mean Platelet Volume 9.5 fL (9.4-12.3); Monocytes Absolute Auto 1.1 X10*3/uL (0.1-1.2); Monocytes Percent Auto 5.9 % (2-11); Neutrophils Absolute Auto 16.3 x10*3/uL (2.0-8.3); Neutrophils Percent Auto 86.2 % (45-73); Platelet Count 233 X10*3/uL (160-400); Red Blood Count 3.95 X10*6/uL (4.20-5.50); Red Cell Distribution Width 14.2 % (11.0-16.0); White Blood Count 18.9 X10*3/uL (4.8-10.8)
[2023-04-09 06:54] LABS: VBG Base Excess 8.5 mmol/L; VBG HCO3 34 mmol/L (22-26); VBG pCO2 53 mmHg; VBG pH 7.42 (7.32-7.43); VBG pO2 108 mmHg
[2023-04-09 06:55] LABS: Venous Blood Gas Refer to POC result
[2023-04-09 07:35] LABS: Albumin Level 3.6 g/dL (3.5-5.0); Anion Gap 10 (12-20); Blood Urea Nitrogen 29 mg/dL (9-16); Calcium 10.1 mg/dL (8.4-10.2); Carbon Dioxide 31 mmol/L (22-29); Chloride 102 mmol/L (96-108); Creatinine Clr Calc Pharmacy 98.8; Estimated Glomerular Filt Rate > 60; Glucose Random 123 mg/dL (60-115); Magnesium 1.9 mg/dL (1.6-2.6); Phosphorus 2.6 mg/dL (2.7-4.5); Potassium 4.3 mmol/L (3.3-5.1); Sodium 139 mmol/L (135-145)
[2023-04-09] MEDS: Albuterol/Iprat 2.5/0.5MG 3 ML AMPUL.NEB INHALE ×4 (07:59→19:39)
[2023-04-09 08:06] LABS: Glucose, Whole Blood 125 mg/dL (60-115)
[2023-04-09] MEDS: methADONE HCl 20 MG/2 ML ORAL.CONC 50 MG PO (09:02)
[2023-04-09] MEDS: dilTIAZem HCL CD 180 MG CAP.ER.24H 360 MG PO (09:06)
[2023-04-09] MEDS: methylPREDNISolone Sod Succ 125 MG/2 ML VIAL 40 MG IVPUSH (09:08)
[2023-04-09] MEDS: Insulin Glargine,Hum.rec.anlog 100 UNIT/ML 10 ML VIAL 30 UNIT SUBCUT (09:08)
[2023-04-09] MEDS: acetaZOLAMIDE sodium 500 MG VIAL IVPUSH ×2 (09:09→21:58)
--- NOTE | 2023-04-09 11:10 | MHC.CM.PN ---
EMR REVIEWED, PT ICU STEPDOWN FOR ACUTE HYPERCAPNIC RESP FAILURE W/NIPPV, PER HOSPITALIST ANTIC 1-2 MORE DAYS INPT AND ANTIC PT WILL RETURN HOME W/[employer] AND HOME O2 W/[facility]OV[facility]NA WILL CONT TO FOLLOW DC NEEDS.
[2023-04-09 11:31] LABS: Glucose, Whole Blood 263 mg/dL (60-115)
[2023-04-09] MEDS: Insulin Lispro 100 UNIT/ML 3 ML VIAL SUBCUT ×4 (12:03→21:59)
[2023-04-09 16:25] LABS: Glucose, Whole Blood 362 mg/dL (60-115)
--- NOTE | 2023-04-09 16:37 | HO.PM.IMPN ---
Subjective Subjective Date of Service: 04/09/23 Interval History: copd excerebation Review of Systems Still has shortness of breath somewhat improving than yesterday. Has cough. Denies any chest pain or nausea or vomiting Physical Exam Vital Signs: Vital Signs: Last Vital Signs Temp 97.5 F 04/09/23 15:48 Pulse 82 04/09/23 15:48 Resp 18 04/09/23 15:48 BP 119/68 04/09/23 15:48 Pulse Ox 94 04/09/23 15:48 O2 Del Method Nasal Cannula 04/09/23 15:48 O2 Flow Rate 2.5 04/09/23 15:48 FiO2 30 04/09/23 02:00 BMI result Body Mass Index 38.2 Appearance: Alert.? Oriented X3.? cvs: [id number], [id number] , no murmur res: air entry diminshed ,has b/l wheezing abd: no rebound or guarding ,nt, bs present. ext pulses present , no cyanosis. neuro: axo3 , nonfocal. Objective Data Active Medications Acetaminophen (Acetaminophen 325 Mg Tablet) 650 mg PO Q6H PRN PRN Reason: Pain, Mild (Pain Scale 1-3) Last Admin: 04/08/23 12:38 Dose: 650 mg Documented By: GETACHEW Acetazolamide (Acetazolamide Sodium 500 Mg Vial) 500 mg IVPUSH BID [facility] Last Admin: 04/09/23 09:09 Dose: 500 mg Documented By: SAMANTHA Albuterol/Ipratropium (Albuterol/Iprat 2.5/0.5mg 3 Ml Ampul.Neb) 3 ml INHALE RQ4H WHILE AWAKE [facility] Last Admin: 04/09/23 15:26 Dose: 3 ml Documented By: WILLIAM Diltiazem HCl (Diltiazem Hcl Cd 180 Mg Cap.Er.24h) 360 mg PO DAILY [facility]; Protocol Last Admin: 04/09/23 09:06 Dose: 360 mg Documented By: SAMANTHA Enoxaparin Sodium (Enoxaparin Sodium 40 Mg/0.4 Ml Syringe) 40 mg SUBCUT Q24H [facility] Last Admin: 04/08/23 20:14 Dose: 40 mg Documented By: BERNIE Azithromycin 500 mg/ Sodium (Chloride) 250 mls @ 125 mls/hr IV Q24H [facility] Last Infusion: 04/08/23 22:38 Dose: Infused Documented By: BERNIE Insulin Glargine (Insulin Glargine,Hum.Rec.Anlog 100 Unit/Ml 10 Ml Vial) 30 unit SUBCUT DAILY [facility] Last Admin: 04/09/23 09:08 Dose: 30 unit Documented By: SAMANTHA Insulin Human Lispro (Insulin Lispro 100 Unit/Ml 3 Ml Vial) 0 unit SUBCUT QIDACHS [facility]; Protocol Last Admin: 04/09/23 12:03 Dose: 6 unit Documented By: SAMANTHA Methadone HCl (Methadone Hcl 20 Mg/2 Ml Oral.Conc) 50 mg PO DAILY [facility] Last Admin: 04/09/23 09:02 Dose: 50 mg Documented By: SAMANTHA Methylprednisolone Sodium Succinate (Methylprednisolone Sod Succ 125 Mg/2 Ml Vial) 40 mg IVPUSH DAILY [facility] Last Admin: 04/09/23 09:08 Dose: 40 mg Documented By: SAMANTHA Labs 04/09/23 06:37 04/09/23 06:37 Labs: Laboratory Results - last 24 hr 04/08/23 04/08/23 04/08/23 16:15 16:37 21:03 MCV MCH MCHC RDW Plt Count MPV Immature Gran % (Auto) Neut % (Auto) Lymph % (Auto) [place] % (Auto) Eos % (Auto) Baso % (Auto) Lymph # (Auto) [place] # (Auto) Eos # (Auto) Baso # (Auto) Abs Immat Gran (auto) Absolute Neuts (auto) Absolute Nucleated RBC Nucleated RBC % (auto) O2 Saturation 87.0 ABG pH at Pt Temp 7.35 ABG pCO2 at Pt Temp 64 H* ABG pO2 at Pt Temp 59 L ABG HCO3 36 H ABG Base Excess (Actual) 8.3 VBG pH VBG pCO2 VBG pO2 VBG HCO3 VBG O2 Saturation VBG Base Excess Anion Gap Estim Creat Clear Calc Estimated GFR POC Glucose 228 H 154 H Random Glucose Calcium Phosphorus Magnesium Albumin 04/08/23 04/09/23 04/09/23 23:44 06:37 06:48 MCV 98.7 H MCH 30.9 MCHC 31.3 RDW 14.2 Plt Count 233 MPV 9.5 Immature Gran % (Auto) 1.1 H Neut % (Auto) 86.2 H Lymph % (Auto) 6.5 L [place] % (Auto) 5.9 Eos % (Auto) 0.1 Baso % (Auto) 0.2 Lymph # (Auto) 1.2 [place] # (Auto) 1.1 Eos # (Auto) 0.0 Baso # (Auto) 0.0 Abs Immat Gran (auto) 0.21 H Absolute Neuts (auto) 16.3 H Absolute Nucleated RBC 0.000 Nucleated RBC % (auto) 0.0 O2 Saturation ABG pH at Pt Temp ABG pCO2 at Pt Temp ABG pO2 at Pt Temp ABG HCO3 ABG Base Excess (Actual) VBG pH 7.42 VBG pCO2 53 VBG pO2 108 VBG HCO3 34 H VBG O2 Saturation 99.0 VBG Base Excess 8.5 Anion Gap 10 L Estim Creat Clear Calc 98.8 Estimated GFR > 60 POC Glucose 159 H Random Glucose 123 H Calcium 10.1 D Phosphorus 2.6 L Magnesium 1.9 Albumin 3.6 04/09/23 04/09/23 04/09/23 08:02 11:27 16:22 MCV MCH MCHC RDW Plt Count MPV Immature Gran % (Auto) Neut % (Auto) Lymph % (Auto) [place] % (Auto) Eos % (Auto) Baso % (Auto) Lymph # (Auto) [place] # (Auto) Eos # (Auto) Baso # (Auto) Abs Immat Gran (auto) Absolute Neuts (auto) Absolute Nucleated RBC Nucleated RBC % (auto) O2 Saturation ABG pH at Pt Temp ABG pCO2 at Pt Temp ABG pO2 at Pt Temp ABG HCO3 ABG Base Excess (Actual) VBG pH VBG pCO2 VBG pO2 VBG HCO3 VBG O2 Saturation VBG Base Excess Anion Gap Estim Creat Clear Calc Estimated GFR POC Glucose 125 H 263 H 362 H* Random Glucose Calcium Phosphorus Magnesium Albumin Microbiology Microbiology Results: Microbiology 04/07/23 19:47 Blood Culture - Preliminary Blood - Venous No growth after 24 hours. 04/07/23 18:42 Blood Culture - Preliminary Blood - Venous No growth after 24 hours. Assessment and Plan (1) Acute and chronic respiratory failure with hypercapnia: Status: Acute (2) COPD (chronic obstructive pulmonary disease): Status: Acute Plan 53 year old obese (BMI 39.2) female with past medical history of asthma-COPD overlap syndrome, chronic hypercarbic & hypoxic respiratory failure (on oxygen & nocturnal BiPAP), pulmonary aspergillosis, obstructive sleep apnea, obesity hypoventilation syndrome, hypertension, hyperlipidemia, and T2DM here with COPD with acute exacerbation, with underlying history of chronic respriatory failure sob with minimalexcersion,has cough will encourage incentive spirometry Patient id bypass support was in ICU, also started on acetazolamide. Acute on chronic hypoxic respiratory failure d/t above, improving ,continue 2.5-3 L of oxygen hypertension, continue home meds Type 2 diabetes Mellitus with hyperglycemia, continue Lantus, humalog and hold Metformin, blood sugars improving since steroids being tapered. H/O Opioid dependence, continue Methadone . Leukocytosis, reactive due to steroid, monitor full code dvt p lovenox need for inpt: giving severe exacerbation of copd wth hypoxia with advance lung disease with frequent hospitalization need close monitoring, need close clinical follow-up. Quality Stroke Does the patient have a stroke diagnosis?: No VTE Prior VTE?: No VTE Risk Level:: Medical - moderate - high VTE Device Contraindication: N/A - Device Ordered VTE Drug Contraindication: N/A - Med Ordered
[2023-04-09] MEDS: Insulin Glargine,Hum.rec.anlog 100 UNIT/ML 10 ML VIAL SUBCUT (17:10)
[2023-04-09 20:39] LABS: Glucose, Whole Blood 308 mg/dL (60-115)
[2023-04-09] MEDS: Enoxaparin Sodium 40 MG/0.4 ML SYRINGE SUBCUT (21:58)
[2023-04-09] MEDS: Azithromycin 500 MG in 0.9 % Sodium Chloride 250 ML 125 MG IV (21:59)
[2023-04-10] VITALS (13 sets, daily range): BP systolic 117–141; BP diastolic 64–82; PULSE 75–120; RESP 18–24; TEMP 35.9–36.9; O2SAT 91–98; BMI 37.7
[2023-04-10] MEDS: Albuterol/Iprat 2.5/0.5MG 3 ML AMPUL.NEB INHALE ×4 (07:34→20:13)
[2023-04-10 07:42] LABS: Glucose, Whole Blood 110 mg/dL (60-115)
--- NOTE | 2023-04-10 08:37 | HO.PM.IMPN ---
Subjective Subjective Date of Service: 04/10/23 Interval History: copd excerebation Review of Systems Still has shortness of breath somewhat improving than yesterday. Has cough. Physical Exam Vital Signs: Vital Signs: Last Vital Signs Temp 98.5 F 04/10/23 07:42 Pulse 85 04/10/23 07:42 Resp 20 04/10/23 07:42 BP 133/71 04/10/23 07:42 Pulse Ox 93 04/10/23 07:42 O2 Del Method BiPAP 04/10/23 07:42 O2 Flow Rate 2.5 04/09/23 15:48 FiO2 30 04/10/23 07:42 BMI result Body Mass Index 37.7 Appearance: Alert.? Oriented X3.? cvs: rrr, [id number] , no murmur res: air entry diminshed ,has b/l wheezing abd: no rebound or guarding ,nt, bs present. ext pulses present , no cyanosis. neuro: axo3 , nonfocal. Objective Data Active Medications Acetaminophen (Acetaminophen 325 Mg Tablet) 650 mg PO Q6H PRN PRN Reason: Pain, Mild (Pain Scale 1-3) Last Admin: 04/08/23 12:38 Dose: 650 mg Documented By: GETACHEW Acetazolamide (Acetazolamide Sodium 500 Mg Vial) 500 mg IVPUSH BID [facility] Last Admin: 04/09/23 21:58 Dose: 500 mg Documented By: COLETTE Albuterol/Ipratropium (Albuterol/Iprat 2.5/0.5mg 3 Ml Ampul.Neb) 3 ml INHALE RQ4H WHILE AWAKE [facility] Last Admin: 04/10/23 07:34 Dose: 3 ml Documented By: WILLIAM Diltiazem HCl (Diltiazem Hcl Cd 180 Mg Cap.Er.24h) 360 mg PO DAILY [facility]; Protocol Last Admin: 04/09/23 09:06 Dose: 360 mg Documented By: SAMANTHA Enoxaparin Sodium (Enoxaparin Sodium 40 Mg/0.4 Ml Syringe) 40 mg SUBCUT Q24H [facility] Last Admin: 04/09/23 21:58 Dose: 40 mg Documented By: COLETTE Azithromycin 500 mg/ Sodium (Chloride) 250 mls @ 125 mls/hr IV Q24H [facility] Last Infusion: 04/10/23 00:55 Dose: Infused Documented By: COLETTE Insulin Glargine (Insulin Glargine,Hum.Rec.Anlog 100 Unit/Ml 10 Ml Vial) 35 unit SUBCUT DAILY [facility] Insulin Human Lispro (Insulin Lispro 100 Unit/Ml 3 Ml Vial) 0 unit SUBCUT QIDACHS [facility]; Protocol Last Admin: 04/09/23 21:59 Dose: 8 unit Documented By: COLETTE Methadone HCl (Methadone Hcl 20 Mg/2 Ml Oral.Conc) 50 mg PO DAILY [facility] Last Admin: 04/09/23 09:02 Dose: 50 mg Documented By: SAMANTHA Methylprednisolone Sodium Succinate (Methylprednisolone Sod Succ 125 Mg/2 Ml Vial) 40 mg IVPUSH DAILY [facility] Last Admin: 04/09/23 09:08 Dose: 40 mg Documented By: SAMANTHA Labs 04/09/23 06:37 04/09/23 06:37 Labs: Laboratory Results - last 24 hr 04/09/23 04/09/23 04/09/23 11:27 16:22 20:33 POC Glucose 263 H 362 H* 308 H 04/10/23 07:36 POC Glucose 110 Microbiology Microbiology Results: Microbiology 04/07/23 19:47 Blood Culture - Preliminary Blood - Venous No growth after 48 hours. 04/07/23 18:42 Blood Culture - Preliminary Blood - Venous No growth after 48 hours. Assessment and Plan (1) Acute and chronic respiratory failure with hypercapnia: Status: Acute Plan 53 year old obese (BMI 39.2) female with past medical history of asthma-COPD overlap syndrome, chronic hypercarbic & hypoxic respiratory failure (on oxygen & nocturnal BiPAP), pulmonary aspergillosis, obstructive sleep apnea, obesity hypoventilation syndrome, hypertension, hyperlipidemia, and T2DM here with COPD with acute exacerbation, with underlying history of chronic respriatory failure sob with minimalexcersion,has cough will encourage incentive spirometry Patient id bypass support was in ICU, also started on acetazolamide. Acute on chronic hypoxic respiratory failure d/t above, improving ,continue 2.5-3 L of oxygen hypertension, continue home meds Type 2 diabetes Mellitus with hyperglycemia, continue Lantus, humalog and hold Metformin, blood sugars improving since steroids being tapered. H/O Opioid dependence, continue Methadone . Leukocytosis, reactive due to steroid, monitor full code dvt p lovenox need for inpt: giving severe exacerbation of copd wth hypoxia with advance lung disease with frequent hospitalization need close monitoring, need close clinical follow-up. Quality Stroke Does the patient have a stroke diagnosis?: No VTE Prior VTE?: No VTE Risk Level:: Medical - moderate - high VTE Device Contraindication: N/A - Device Ordered VTE Drug Contraindication: N/A - Med Ordered
[2023-04-10] MEDS: methADONE HCl 20 MG/2 ML ORAL.CONC 50 MG PO (09:23)
[2023-04-10] MEDS: acetaZOLAMIDE sodium 500 MG VIAL IVPUSH ×2 (09:23→20:17)
[2023-04-10] MEDS: Insulin Glargine,Hum.rec.anlog 100 UNIT/ML 10 ML VIAL 35 UNIT SUBCUT (09:23)
[2023-04-10] MEDS: dilTIAZem HCL CD 180 MG CAP.ER.24H 360 MG PO (09:23)
[2023-04-10] MEDS: methylPREDNISolone Sod Succ 125 MG/2 ML VIAL 40 MG IVPUSH (09:24)
[2023-04-10 11:39] LABS: Glucose, Whole Blood 206 mg/dL (60-115)
[2023-04-10] MEDS: Insulin Lispro 100 UNIT/ML 3 ML VIAL SUBCUT ×3 (12:14→20:17)
[2023-04-10] MEDS: hydrALAZINE HCl 25 MG TABLET PO ×2 (13:29→17:23)
[2023-04-10 16:34] LABS: Glucose, Whole Blood 299 mg/dL (60-115)
[2023-04-10 20:16] LABS: Glucose, Whole Blood 342 mg/dL (60-115)
[2023-04-10] MEDS: Enoxaparin Sodium 40 MG/0.4 ML SYRINGE SUBCUT (20:17)
[2023-04-10] MEDS: Azithromycin 500 MG in 0.9 % Sodium Chloride 250 ML 125 MG IV (20:17)
[2023-04-10] MEDS: metFORMIN HCl ER 500 MG TAB.ER.24H 1000 MG PO (20:18)
[2023-04-10] MEDS: lamoTRIgine 25 MG TABLET 150 MG PO (20:18)
[2023-04-10] MEDS: Montelukast Sodium 10 MG TABLET PO (20:18)
[2023-04-10] MEDS: Atorvastatin Calcium 20 MG TABLET PO (20:18)
[2023-04-10] MEDS: Gabapentin 300 MG CAPSULE PO (20:18)
[2023-04-11] VITALS (12 sets, daily range): BP systolic 118–161; BP diastolic 59–99; PULSE 88–108; RESP 18–20; TEMP 36.1–36.3; O2SAT 94–99; BMI 38.5
[2023-04-11] MEDS: Omeprazole 40 MG CAPSULE.DR PO (05:54)
[2023-04-11 07:58] LABS: Glucose, Whole Blood 105 mg/dL (60-115)
[2023-04-11] MEDS: Albuterol/Iprat 2.5/0.5MG 3 ML AMPUL.NEB INHALE ×4 (08:11→20:38)
[2023-04-11] MEDS: Tiotropium Bromide 2.5 mcg 1 PUFF/2.5 MCG MIST.INHAL INHALE (08:11)
[2023-04-11] MEDS: acetaZOLAMIDE sodium 500 MG VIAL 250 MG IVPUSH ×2 (09:23→22:10)
[2023-04-11] MEDS: lamoTRIgine 25 MG TABLET 150 MG PO ×2 (09:23→22:22)
[2023-04-11] MEDS: azaTHIOprine 50 MG TABLET 100 MG PO (09:24)
[2023-04-11] MEDS: polyethylene glycoL 3350 17 GM POWD.PACK PO (09:24)
[2023-04-11] MEDS: Roflumilast 500 MCG TABLET PO (09:24)
[2023-04-11] MEDS: methylPREDNISolone Sod Succ 125 MG/2 ML VIAL 40 MG IVPUSH (09:24)
[2023-04-11] MEDS: Gabapentin 300 MG CAPSULE PO ×2 (09:24→22:12)
[2023-04-11] MEDS: Loratadine 10 MG TABLET PO (09:24)
[2023-04-11] MEDS: Furosemide 40 MG TABLET PO (09:24)
[2023-04-11] MEDS: hydrALAZINE HCl 25 MG TABLET PO ×3 (09:25→17:31)
[2023-04-11] MEDS: lisinopriL 10 MG TABLET PO (09:25)
[2023-04-11] MEDS: Sulfamethox/Trimeth 400/80 TABLET 1 TAB PO (09:25)
[2023-04-11] MEDS: metFORMIN HCl ER 500 MG TAB.ER.24H 1000 MG PO ×2 (09:25→22:09)
[2023-04-11] MEDS: Folic Acid 1 MG TABLET PO (09:25)
[2023-04-11] MEDS: methADONE HCl 20 MG/2 ML ORAL.CONC 50 MG PO (09:26)
[2023-04-11] MEDS: Insulin Glargine,Hum.rec.anlog 100 UNIT/ML 10 ML VIAL 35 UNIT SUBCUT (09:26)
[2023-04-11] MEDS: dilTIAZem HCL CD 180 MG CAP.ER.24H 360 MG PO (09:26)
[2023-04-11 10:19] LABS: Hematocrit 41.5 % (37.0-47.0); Hemoglobin 13.4 g/dl (12.0-16.0); Mean Corpuscular HGB Conc 32.3 g/dl (31.0-35.0); Mean Corpuscular Hemoglobin 30.9 pg (27.0-33.0); Mean Corpuscular Volume 95.8 fL (80.0-98.0); Mean Platelet Volume 9.2 fL (9.4-12.3); NRBC Pct Auto 0.2 /100WBC (0.0-0.2); Platelet Count 282 X10*3/uL (160-400); Red Blood Count 4.33 X10*6/uL (4.20-5.50); Red Cell Distribution Width 13.9 % (11.0-16.0); White Blood Count 18.2 X10*3/uL (4.8-10.8)
[2023-04-11 10:30] LABS: Anion Gap 13 (12-20); Blood Urea Nitrogen 30 mg/dL (9-16); Calcium 9.7 mg/dL (8.4-10.2); Carbon Dioxide 28 mmol/L (22-29); Chloride 103 mmol/L (96-108); Creatinine Clr Calc Pharmacy 81.3; Estimated Glomerular Filt Rate > 60; Glucose Random 178 mg/dL (60-115); Potassium 3.8 mmol/L (3.3-5.1); Sodium 140 mmol/L (135-145)
[2023-04-11 11:45] LABS: Glucose, Whole Blood 237 mg/dL (60-115)
[2023-04-11] MEDS: Insulin Lispro 100 UNIT/ML 3 ML VIAL SUBCUT ×3 (12:36→22:09)
--- NOTE | 2023-04-11 13:00 | MHC.CM.PN ---
EMR REVIEWED, PT W/COPD EXAC, PER HOSPITALIST PT IMPROVING HOWEVER NOT YET READY FOR DC, PLAN CONT'S TO BE HOME W/[employer] AND HOME O2 W/JEAN, CM WILL CONT TO FOLLOW DC NEEDS.
--- NOTE | 2023-04-11 13:07 | HO.PM.IMPN ---
Subjective Subjective Date of Service: 04/11/23 Interval History: copd excerebation Review of Systems Still has shortness of breath somewhat improving but still sob with minimum excersion Has cough. Physical Exam Vital Signs: Vital Signs: Last Vital Signs Temp 97.3 F 04/11/23 12:00 Pulse 99 04/11/23 12:00 Resp 19 04/11/23 12:00 BP 145/83 H 04/11/23 12:00 Pulse Ox 99 04/11/23 12:00 O2 Del Method Nasal Cannula 04/11/23 12:00 O2 Flow Rate 3 04/11/23 08:00 FiO2 30 04/11/23 03:17 BMI result Body Mass Index 38.5 Appearance: Alert.? Oriented X3.? cvs: [id number], [id number] , no murmur res: air entry diminshed ,has b/l wheezing abd: no rebound or guarding ,nt, bs present. ext pulses present , no cyanosis. neuro: axo3 , nonfocal. Objective Data Active Medications Acetaminophen (Acetaminophen 325 Mg Tablet) 650 mg PO Q6H PRN PRN Reason: Pain, Mild (Pain Scale 1-3) Last Admin: 04/08/23 12:38 Dose: 650 mg Documented By: GETACHEW Acetazolamide (Acetazolamide Sodium 500 Mg Vial) 250 mg IVPUSH BID [facility] Last Admin: 04/11/23 09:23 Dose: 250 mg Documented By: MARTIN Albuterol Sulfate (Albuterol Sulfate 90 Mcg 8 Gm Inhaler) 2 puff INHALE RQ4H PRN PRN Reason: Shortness Of Breath Or Wheezing Albuterol/Ipratropium (Albuterol/Iprat 2.5/0.5mg 3 Ml Ampul.Neb) 3 ml INHALE RQ4H WHILE AWAKE [facility] Last Admin: 04/11/23 11:23 Dose: 3 ml Documented By: ROSITA Atorvastatin Calcium (Atorvastatin Calcium 20 Mg Tablet) 20 mg PO BEDTIME [facility] Last Admin: 04/10/23 20:18 Dose: 20 mg Documented By: COLETTE Azathioprine (Azathioprine 50 Mg Tablet) 100 mg PO DAILY [facility] Last Admin: 04/11/23 09:24 Dose: 100 mg Documented By: MARTIN Clonazepam (Clonazepam 1 Mg Tablet) 1 mg PO BID PRN PRN Reason: Anxiety Diltiazem HCl (Diltiazem Hcl Cd 180 Mg Cap.Er.24h) 360 mg PO DAILY [facility]; Protocol Last Admin: 04/11/23 09:26 Dose: 360 mg Documented By: MARTIN Docusate Sodium (Docusate Sodium 100 Mg Capsule) 100 mg PO BID PRN PRN Reason: constipation Enoxaparin Sodium (Enoxaparin Sodium 40 Mg/0.4 Ml Syringe) 40 mg SUBCUT Q24H [facility] Last Admin: 04/10/23 20:17 Dose: 40 mg Documented By: COLETTE Folic Acid (Folic Acid 1 Mg Tablet) 1 mg PO DAILY [facility] Last Admin: 04/11/23 09:25 Dose: 1 mg Documented By: MARTIN Furosemide (Furosemide 40 Mg Tablet) 40 mg PO DAILY [facility]; Protocol Last Admin: 04/11/23 09:24 Dose: 40 mg Documented By: MARTIN Gabapentin (Gabapentin 300 Mg Capsule) 300 mg PO BID [facility] Last Admin: 04/11/23 09:24 Dose: 300 mg Documented By: MARTIN Hydralazine HCl (Hydralazine Hcl 25 Mg Tablet) 25 mg PO TIDWM [facility]; Protocol Last Admin: 04/11/23 12:36 Dose: 25 mg Documented By: MARTIN Azithromycin 500 mg/ Sodium (Chloride) 250 mls @ 125 mls/hr IV Q24H [facility] Last Infusion: 04/10/23 23:41 Dose: Infused Documented By: COLETTE Insulin Glargine (Insulin Glargine,Hum.Rec.Anlog 100 Unit/Ml 10 Ml Vial) 35 unit SUBCUT DAILY [facility] Last Admin: 04/11/23 09:26 Dose: 35 unit Documented By: MARTIN Insulin Human Lispro (Insulin Lispro 100 Unit/Ml 3 Ml Vial) 0 unit SUBCUT QIDACHS [facility]; Protocol Last Admin: 04/11/23 12:36 Dose: 4 unit Documented By: MARTIN Lactic Acid (Ammonium Lactate 12 % Lotion 226 Gm Bottle) 1 appl TOPICAL DAILY PRN; Protocol PRN Reason: Rash Lamotrigine (Lamotrigine 25 Mg Tablet) 150 mg PO BID [facility] Last Admin: 04/11/23 09:23 Dose: 150 mg Documented By: MARTIN Lidocaine (Lidocaine 4 % Patch Adh..Patch) 1 patch TRANSDERMA DAILY [facility] Last Admin: 04/11/23 09:23 Dose: Not Given Documented By: MARTIN Non-Admin Reason: Patient Refused Lisinopril (Lisinopril 10 Mg Tablet) 10 mg PO DAILY [facility]; Protocol Last Admin: 04/11/23 09:25 Dose: 10 mg Documented By: MARTIN Loratadine (Loratadine 10 Mg Tablet) 10 mg PO DAILY [facility] Last Admin: 04/11/23 09:24 Dose: 10 mg Documented By: MARTIN Metformin HCl (Metformin Hcl Er 500 Mg Tab.Er.24h) 1,000 mg PO BID [facility] Last Admin: 04/11/23 09:25 Dose: 500 mg Documented By: MARTIN Comments: pt requesting to only take 1 tablet Methadone HCl (Methadone Hcl 20 Mg/2 Ml Oral.Conc) 50 mg PO DAILY [facility] Last Admin: 04/11/23 09:26 Dose: 50 mg Documented By: MARTIN Methylprednisolone Sodium Succinate (Methylprednisolone Sod Succ 125 Mg/2 Ml Vial) 40 mg IVPUSH DAILY [facility] Last Admin: 04/11/23 09:24 Dose: 40 mg Documented By: MARTIN Montelukast Sodium (Montelukast Sodium 10 Mg Tablet) 10 mg PO BEDTIME [facility] Last Admin: 04/10/23 20:18 Dose: 10 mg Documented By: COLETTE Non-Formulary Medication (Cholecalciferol (Vitamin D3)) 1,250 mcg PO MOWE@0900 [facility] Omeprazole (Omeprazole 40 Mg Capsule.Dr) 40 mg PO DAILY@0630 [facility] Last Admin: 04/11/23 05:54 Dose: 40 mg Documented By: COLETTE Polyethylene Glycol (Polyethylene Glycol 3350 17 Gm Powd.Pack) 17 gm PO DAILY [facility] Last Admin: 04/11/23 09:24 Dose: 17 gm Documented By: MARTIN Roflumilast (Roflumilast 500 Mcg Tablet) 500 mcg PO DAILY [facility] Last Admin: 04/11/23 09:24 Dose: 500 mcg Documented By: MARTIN Simethicone (Simethicone 80 Mg Tab.Chew) 80 mg PO QIDWMHS PRN PRN Reason: Abdominal Distention Tiotropium [place] (Tiotropium [place] 2.5 Mcg 1 Puff/2.5 Mcg Mist.Inhal) 1 puff INHALE DAILY [facility] Last Admin: 04/11/23 08:11 Dose: 1 puff Documented By: ROSITA Trimethoprim/Sulfamethoxazole (Sulfamethox/Trimeth 400/80 Tablet) 1 tab PO DAILY [facility] Last Admin: 04/11/23 09:25 Dose: 1 tab Documented By: MARTIN Zolpidem Tartrate (Zolpidem Tartrate 5 Mg Tablet) 5 mg PO BEDTIME PRN PRN Reason: Sleep Labs 04/11/23 09:57 04/11/23 09:57 Labs: Laboratory Results - last 24 hr 04/10/23 04/10/23 04/11/23 16:30 20:12 07:55 MCV MCH MCHC RDW Plt Count MPV Absolute Nucleated RBC Nucleated RBC % (auto) Anion Gap Estim Creat Clear Calc Estimated GFR POC Glucose 299 H 342 H 105 Random Glucose Calcium 04/11/23 04/11/23 09:57 11:35 MCV 95.8 MCH 30.9 MCHC 32.3 RDW 13.9 Plt Count 282 MPV 9.2 L Absolute Nucleated RBC 0.030 H Nucleated RBC % (auto) 0.2 Anion Gap 13 Estim Creat Clear Calc 81.3 Estimated GFR > 60 POC Glucose 237 H Random Glucose 178 H Calcium 9.7 Assessment and Plan (1) Acute and chronic respiratory failure with hypercapnia: Status: Acute Plan 53 year old obese (BMI 39.2) female with past medical history of asthma-COPD overlap syndrome, chronic hypercarbic & hypoxic respiratory failure (on oxygen & nocturnal BiPAP), pulmonary aspergillosis, obstructive sleep apnea, obesity hypoventilation syndrome, hypertension, hyperlipidemia, and T2DM here with COPD with acute exacerbation, with underlying history of chronic respriatory failure sob with minimalexcersion,has cough will encourage incentive spirometry Patient id bypass support was in ICU, also started on acetazolamide. Acute on chronic hypoxic respiratory failure d/t above, improving ,continue 2.5-3 L of oxygen hypertension, continue home meds Type 2 diabetes Mellitus with hyperglycemia, continue Lantus, humalog and hold Metformin, blood sugars improving since steroids being tapered. H/O Opioid dependence, continue Methadone . Leukocytosis, reactive due to steroid, monitor full code dvt p lovenox need for inpt: giving severe exacerbation of copd wth hypoxia with advance lung disease with frequent hospitalization need close monitoring, need close clinical follow-up. Quality Stroke Does the patient have a stroke diagnosis?: No VTE Prior VTE?: No VTE Risk Level:: Medical - moderate - high VTE Device Contraindication: N/A - Device Ordered VTE Drug Contraindication: N/A - Med Ordered
[2023-04-11 17:31] LABS: Glucose, Whole Blood 319 mg/dL (60-115)
--- NOTE | 2023-04-11 18:30 | PC.NURSE ---
Adan catheter removed, 400cc yellow urine emptied. Pt DTV [id number].
[2023-04-11 20:46] LABS: Glucose, Whole Blood 297 mg/dL (60-115)
[2023-04-11] MEDS: Atorvastatin Calcium 20 MG TABLET PO (22:09)
[2023-04-11] MEDS: Montelukast Sodium 10 MG TABLET PO (22:09)
[2023-04-11] MEDS: Azithromycin 500 MG in 0.9 % Sodium Chloride 250 ML 125 MG IV (22:10)
[2023-04-11] MEDS: Enoxaparin Sodium 40 MG/0.4 ML SYRINGE SUBCUT (22:11)
[2023-04-12] VITALS (12 sets, daily range): BP systolic 104–130; BP diastolic 55–76; PULSE 83–125; RESP 18–24; TEMP 36.1–36.8; O2SAT 92–99; BMI 37.0
[2023-04-12] MEDS: Omeprazole 40 MG CAPSULE.DR PO (05:25)
[2023-04-12 08:12] LABS: Glucose, Whole Blood 114 mg/dL (60-115)
[2023-04-12] MEDS: Albuterol/Iprat 2.5/0.5MG 3 ML AMPUL.NEB INHALE ×4 (08:57→20:20)
[2023-04-12] MEDS: Tiotropium Bromide 2.5 mcg 1 PUFF/2.5 MCG MIST.INHAL INHALE (08:57)
[2023-04-12] MEDS: polyethylene glycoL 3350 17 GM POWD.PACK PO (09:37)
[2023-04-12] MEDS: methADONE HCl 20 MG/2 ML ORAL.CONC 50 MG PO (09:38)
[2023-04-12] MEDS: acetaZOLAMIDE sodium 500 MG VIAL 250 MG IVPUSH ×2 (09:38→21:51)
[2023-04-12] MEDS: lamoTRIgine 25 MG TABLET 150 MG PO (09:38)
[2023-04-12] MEDS: Gabapentin 300 MG CAPSULE PO ×2 (09:39→21:51)
[2023-04-12] MEDS: methylPREDNISolone Sod Succ 125 MG/2 ML VIAL 40 MG IVPUSH (09:39)
[2023-04-12] MEDS: azaTHIOprine 50 MG TABLET 100 MG PO (09:39)
[2023-04-12] MEDS: Sulfamethox/Trimeth 400/80 TABLET 1 TAB PO (09:39)
[2023-04-12] MEDS: lisinopriL 10 MG TABLET PO (09:39)
[2023-04-12] MEDS: dilTIAZem HCL CD 180 MG CAP.ER.24H 360 MG PO (09:39)
[2023-04-12] MEDS: Acetaminophen 325 MG TABLET 650 MG PO (09:39)
[2023-04-12] MEDS: metFORMIN HCl ER 500 MG TAB.ER.24H 1000 MG PO ×2 (09:40→21:50)
[2023-04-12] MEDS: Loratadine 10 MG TABLET PO (09:40)
[2023-04-12] MEDS: Roflumilast 500 MCG TABLET PO (09:40)
[2023-04-12] MEDS: Furosemide 40 MG TABLET PO (09:41)
[2023-04-12] MEDS: Folic Acid 1 MG TABLET PO (09:41)
[2023-04-12] MEDS: Insulin Glargine,Hum.rec.anlog 100 UNIT/ML 10 ML VIAL 35 UNIT SUBCUT (09:41)
[2023-04-12] MEDS: hydrALAZINE HCl 25 MG TABLET PO ×3 (09:41→16:50)
--- NOTE | 2023-04-12 11:23 | HO.PM.IMPN ---
Subjective Subjective Date of Service: 04/12/23 Interval History: copd excerebation Review of Systems Still has shortness of breath somewhat improving but still sob with minimum excersion Has cough,no fever. Physical Exam Vital Signs: Vital Signs: Last Vital Signs Temp 97.1 F 04/12/23 07:53 Pulse 125 H 04/12/23 08:57 Resp 24 H 04/12/23 08:57 BP 122/76 04/12/23 07:53 Pulse Ox 97 04/12/23 07:53 O2 Del Method Nasal Cannula 04/12/23 07:53 O2 Flow Rate 2.5 04/12/23 07:53 FiO2 50 04/12/23 03:52 BMI result Body Mass Index 37.0 Appearance: Alert.? Oriented X3.? cvs: rrr, [id number] , no murmur res: air entry diminshed ,has b/l wheezing abd: no rebound or guarding ,nt, bs present. ext pulses present , no cyanosis. neuro: axo3 , nonfocal. Objective Data Active Medications Acetaminophen (Acetaminophen 325 Mg Tablet) 650 mg PO Q6H PRN PRN Reason: Pain, Mild (Pain Scale 1-3) Last Admin: 04/12/23 09:39 Dose: 650 mg Documented By: MARTIN Acetazolamide (Acetazolamide Sodium 500 Mg Vial) 250 mg IVPUSH BID [facility] Last Admin: 04/12/23 09:38 Dose: 250 mg Documented By: MARTIN Albuterol Sulfate (Albuterol Sulfate 90 Mcg 8 Gm Inhaler) 2 puff INHALE RQ4H PRN PRN Reason: Shortness Of Breath Or Wheezing Albuterol/Ipratropium (Albuterol/Iprat 2.5/0.5mg 3 Ml Ampul.Neb) 3 ml INHALE RQ4H WHILE AWAKE [facility] Last Admin: 04/12/23 08:57 Dose: 3 ml Documented By: LIBAN Atorvastatin Calcium (Atorvastatin Calcium 20 Mg Tablet) 20 mg PO BEDTIME [facility] Last Admin: 04/11/23 22:09 Dose: 20 mg Documented By: AL Azathioprine (Azathioprine 50 Mg Tablet) 100 mg PO DAILY [facility] Last Admin: 04/12/23 09:39 Dose: 100 mg Documented By: MARTIN Clonazepam (Clonazepam 1 Mg Tablet) 1 mg PO BID PRN PRN Reason: Anxiety Diltiazem HCl (Diltiazem Hcl Cd 180 Mg Cap.Er.24h) 360 mg PO DAILY [facility]; Protocol Last Admin: 04/12/23 09:39 Dose: 360 mg Documented By: MARTIN Docusate Sodium (Docusate Sodium 100 Mg Capsule) 100 mg PO BID PRN PRN Reason: constipation Enoxaparin Sodium (Enoxaparin Sodium 40 Mg/0.4 Ml Syringe) 40 mg SUBCUT Q24H [facility] Last Admin: 04/11/23 22:11 Dose: 40 mg Documented By: AL Folic Acid (Folic Acid 1 Mg Tablet) 1 mg PO DAILY [facility] Last Admin: 04/12/23 09:41 Dose: 1 mg Documented By: MARTIN Furosemide (Furosemide 40 Mg Tablet) 40 mg PO DAILY [facility]; Protocol Last Admin: 04/12/23 09:41 Dose: 40 mg Documented By: MARTIN Gabapentin (Gabapentin 300 Mg Capsule) 300 mg PO BID [facility] Last Admin: 04/12/23 09:39 Dose: 300 mg Documented By: MARTIN Hydralazine HCl (Hydralazine Hcl 25 Mg Tablet) 25 mg PO TIDWM [facility]; Protocol Last Admin: 04/12/23 09:41 Dose: 25 mg Documented By: MARTIN Azithromycin 500 mg/ Sodium (Chloride) 250 mls @ 125 mls/hr IV Q24H [facility] Last Infusion: 04/12/23 01:41 Dose: Infused Documented By: AL Insulin Glargine (Insulin Glargine,Hum.Rec.Anlog 100 Unit/Ml 10 Ml Vial) 35 unit SUBCUT DAILY [facility] Last Admin: 04/12/23 09:41 Dose: 35 unit Documented By: MARTIN Insulin Human Lispro (Insulin Lispro 100 Unit/Ml 3 Ml Vial) 0 unit SUBCUT QIDACHS [facility]; Protocol Last Admin: 04/12/23 08:58 Dose: Not Given Documented By: MARTIN Non-Admin Reason: poc= 114 Lactic Acid (Ammonium Lactate 12 % Lotion 226 Gm Bottle) 1 appl TOPICAL DAILY PRN; Protocol PRN Reason: Rash Lamotrigine (Lamotrigine 25 Mg Tablet) 150 mg PO BID [facility] Last Admin: 01/27/24 09:38 Dose: 150 mg Documented By: MARTIN Lidocaine (Lidocaine 4 % Patch Adh..Patch) 1 patch TRANSDERMA DAILY [facility] Last Admin: 04/12/23 09:41 Dose: Not Given Documented By: MARTIN Non-Admin Reason: Patient Refused Lisinopril (Lisinopril 10 Mg Tablet) 10 mg PO DAILY [facility]; Protocol Last Admin: 04/12/23 09:39 Dose: 10 mg Documented By: MARTIN Loratadine (Loratadine 10 Mg Tablet) 10 mg PO DAILY [facility] Last Admin: 04/12/23 09:40 Dose: 10 mg Documented By: MARTIN Metformin HCl (Metformin Hcl Er 500 Mg Tab.Er.24h) 1,000 mg PO BID [facility] Last Admin: 04/12/23 09:40 Dose: 500 mg Documented By: MARTIN Comments: Pt requests to only take 1 tablet Methadone HCl (Methadone Hcl 20 Mg/2 Ml Oral.Conc) 50 mg PO DAILY [facility] Last Admin: 04/12/23 09:38 Dose: 50 mg Documented By: MARTIN Methylprednisolone Sodium Succinate (Methylprednisolone Sod Succ 125 Mg/2 Ml Vial) 40 mg IVPUSH DAILY [facility] Last Admin: 04/12/23 09:39 Dose: 40 mg Documented By: MARTIN Montelukast Sodium (Montelukast Sodium 10 Mg Tablet) 10 mg PO BEDTIME [facility] Last Admin: 04/11/23 22:09 Dose: 10 mg Documented By: AL Non-Formulary Medication (Cholecalciferol (Vitamin D3)) 1,250 mcg PO MOWE@0900 [facility] Omeprazole (Omeprazole 40 Mg Capsule.) 40 mg PO DAILY@0630 [facility] Last Admin: 04/12/23 05:25 Dose: 40 mg Documented By: AL Polyethylene Glycol (Polyethylene Glycol 3350 17 Gm Powd.Pack) 17 gm PO DAILY [facility] Last Admin: 04/12/23 09:37 Dose: 17 gm Documented By: MARTIN Roflumilast (Roflumilast 500 Mcg Tablet) 500 mcg PO DAILY [facility] Last Admin: 04/12/23 09:40 Dose: 500 mcg Documented By: MARTIN Simethicone (Simethicone 80 Mg Tab.Chew) 80 mg PO QIDWMHS PRN PRN Reason: Abdominal Distention Tiotropium [place] (Tiotropium [place] 2.5 Mcg 1 Puff/2.5 Mcg Mist.Inhal) 1 puff INHALE DAILY [facility] Last Admin: 04/12/23 08:57 Dose: 1 puff Documented By: LIBAN Trimethoprim/Sulfamethoxazole (Sulfamethox/Trimeth 400/80 Tablet) 1 tab PO DAILY [facility] Last Admin: 04/12/23 09:39 Dose: 1 tab Documented By: MARTIN Zolpidem Tartrate (Zolpidem Tartrate 5 Mg Tablet) 5 mg PO BEDTIME PRN PRN Reason: Sleep Labs 04/11/23 09:57 04/11/23 09:57 Labs: Laboratory Results - last 24 hr 04/11/23 04/11/23 04/11/23 11:35 17:27 20:41 POC Glucose 237 H 319 H 297 H 04/12/23 07:52 POC Glucose 114 Assessment and Plan (1) Acute and chronic respiratory failure with hypercapnia: Status: Acute Plan 53 year old obese (BMI 39.2) female with past medical history of asthma-COPD overlap syndrome, chronic hypercarbic & hypoxic respiratory failure (on oxygen & nocturnal BiPAP), pulmonary aspergillosis, obstructive sleep apnea, obesity hypoventilation syndrome, hypertension, hyperlipidemia, and T2DM here with COPD with acute exacerbation, with underlying history of chronic respriatory failure sob with minimalexcersion,has cough will encourage incentive spirometry Patient id bypass support was in ICU, also started on acetazolamide. Acute on chronic hypoxic respiratory failure d/t above, improving ,continue 2.5-3 L of oxygen hypertension, continue home meds Type 2 diabetes Mellitus with hyperglycemia, continue Lantus, humalog and hold Metformin, blood sugars improving since steroids being tapered. H/O Opioid dependence, continue Methadone . Leukocytosis, reactive due to steroid, monitor full code dvt prophylax: lovenox need for inpt: giving severe exacerbation of copd wth hypoxia with advance lung disease with-oxygen dependence , frequent hospitalization ,need nebs ,steriods ,antibiotics ,close respiratory monitoring, need close clinical follow-up. Quality Stroke Does the patient have a stroke diagnosis?: No VTE Prior VTE?: No VTE Risk Level:: Medical - moderate - high VTE Device Contraindication: N/A - Device Ordered VTE Drug Contraindication: N/A - Med Ordered
[2023-04-12 11:44] LABS: Glucose, Whole Blood 156 mg/dL (60-115)
[2023-04-12] MEDS: Insulin Lispro 100 UNIT/ML 3 ML VIAL SUBCUT ×4 (12:29→21:50)
[2023-04-12 15:59] LABS: Glucose, Whole Blood 421 mg/dL (60-115)
[2023-04-12 19:48] LABS: Glucose, Whole Blood 412 mg/dL (60-115)
[2023-04-12] MEDS: Enoxaparin Sodium 40 MG/0.4 ML SYRINGE SUBCUT (21:50)
[2023-04-12] MEDS: Atorvastatin Calcium 20 MG TABLET PO (21:50)
[2023-04-12] MEDS: lamoTRIgine 100 MG TABLET 150 MG PO ×2 (21:51→22:08)
[2023-04-12] MEDS: Azithromycin 500 MG in 0.9 % Sodium Chloride 250 ML 125 MG IV (21:51)
[2023-04-12] MEDS: Montelukast Sodium 10 MG TABLET PO (21:51)
--- NOTE | 2023-04-12 23:57 | PC.NURSE ---
Spoke with pharmacist at approx. 2140 re: insufficient quantity of lamitrogine in pxis. Pharmacy changed order to 100mg tablets, give 1.5 tablets, which this global technical writer administered at 2150. Pharmacist notified MAR not reflecting it was given under new order.
[2023-04-13] VITALS (9 sets, daily range): BP systolic 104–137; BP diastolic 61–65; PULSE 84–108; RESP 16–21; TEMP 36.2–36.8; O2SAT 92–98; BMI 37.1
[2023-04-13 03:23] LABS: Glucose, Whole Blood 204 mg/dL (60-115)
[2023-04-13] MEDS: Omeprazole 40 MG CAPSULE.DR PO (04:59)
[2023-04-13 07:41] LABS: Glucose, Whole Blood 100 mg/dL (60-115)
[2023-04-13] MEDS: Tiotropium Bromide 2.5 mcg 1 PUFF/2.5 MCG MIST.INHAL INHALE (08:16)
[2023-04-13] MEDS: Albuterol/Iprat 2.5/0.5MG 3 ML AMPUL.NEB INHALE ×2 (08:17→11:51)
[2023-04-13] MEDS: methylPREDNISolone Sod Succ 125 MG/2 ML VIAL 40 MG IVPUSH (08:26)
[2023-04-13] MEDS: polyethylene glycoL 3350 17 GM POWD.PACK PO (08:26)
[2023-04-13] MEDS: methADONE HCl 20 MG/2 ML ORAL.CONC 50 MG PO (08:27)
[2023-04-13] MEDS: dilTIAZem HCL CD 180 MG CAP.ER.24H 360 MG PO (08:27)
[2023-04-13] MEDS: metFORMIN HCl ER 500 MG TAB.ER.24H 1000 MG PO (08:27)
[2023-04-13] MEDS: azaTHIOprine 50 MG TABLET 100 MG PO (08:28)
[2023-04-13] MEDS: Gabapentin 300 MG CAPSULE PO (08:28)
[2023-04-13] MEDS: Furosemide 40 MG TABLET PO (08:28)
[2023-04-13] MEDS: Roflumilast 500 MCG TABLET PO (08:28)
[2023-04-13] MEDS: Loratadine 10 MG TABLET PO (08:28)
[2023-04-13] MEDS: hydrALAZINE HCl 25 MG TABLET PO ×2 (08:28→12:07)
[2023-04-13] MEDS: Folic Acid 1 MG TABLET PO (08:28)
[2023-04-13] MEDS: lisinopriL 10 MG TABLET PO (08:28)
[2023-04-13] MEDS: lamoTRIgine 100 MG TABLET 150 MG PO (08:28)
[2023-04-13] MEDS: Insulin Glargine,Hum.rec.anlog 100 UNIT/ML 10 ML VIAL 35 UNIT SUBCUT (08:29)
[2023-04-13] MEDS: Sulfamethox/Trimeth 400/80 TABLET 1 TAB PO (08:29)
[2023-04-13 11:03] LABS: Glucose, Whole Blood 116 mg/dL (60-115)
--- NOTE | 2023-04-13 11:23 | P.DS_ITS ---
DS: Providers Provider Date of Service: 04/13/23 Date of admission: 04/07/23 21:40 Date of discharge: 04/13/23 Primary care physician: Kelli Benavides MD Attending physician on discharge: Marielos Guillermo Discharging clinician: Marielos Guillermo DS: Diagnosis Discharge Diagnosis (1) Acute and chronic respiratory failure with hypercapnia: Status: Acute DS: Summary Hospital Course Hospital Course: 53-year-old woman with a past medical history of asthma COPD overlap syndrome, chronic? hypercarbic and hypoxic respiratory failure currently on 3l via [place] home oxygen and newly started on BIPAP at home, on chronic steroids,? diabetes mellitus, hypertension, hyperlipidemia, tobacco use, and Hypogammaglobulinemia on IVIG,? opioid dependence on methadone who presented to emergency department w ith dyspnea. Patient report increasing shortness of breath and wheezing not responding to her home BiPAP and nebs.? Laboratory data significant for the WBC 18, Serum bicarb 35. ABGs initially ? 7.27/92/63/42? but after 2 hours of BiPAP she was 7.25 / 91/66/39. Patient continued mentating well. Vitals stable IMAGING:: Chest Xray: no acute infection, but some evidence of pulmonary congestion ED course:? patient received? albuterol? 5,? methylprednisolone 125mg, ceftriaxone 1g and azithromycin 500mg.? ? Patient will be admitted to ICU for acute? hypercapnic and hypoxic respiratory failure requiring BiPAP. Hospital course: 52-year-old lady with underlying obesity, CHITO with hypoventilation syndrome with significant CO2 retention, on home supplemental oxygen at 3 L BiPAP at night, asthma/COPD syndrome, diabetes mellitus, opioid dependence on methadone, with multiple admissions for respiratory failure admitted on 04/07/2023 with acute on chronic hypoxic hypercapnic respiratory failure requiring rescue BiPAP,nebs ,steriods ,antibiotics,acetazolamide 250 mg daily : Subsequently patient seems to be improved significantly now she is near her baseline respiratory status as well as oxygenation. Patient will be going home with p.o. steroids and already completed azithromycin. Also Pulmonary recommended to add acetazolamide 250 mg daily for now. Patient is to follow-up with PCP and Pulmonary out patiently. plan: po prednisone 40 mg p.o. for 4 days Acetazolamide 250 mg daily-2 weeks supply. Assessment and plan coordination time spent 50 minute, above management discussed with the patient in detail length she understand in agreement with the plan. Time Attestation Discharge coordination time: Greater than 30 minutes Quality: Safe Use of Opioids Does Pt have an Active Cancer Diagnosis on the Problem List?: No Quality: Stroke Does the patient have a stroke diagnosis?: No Physical Exam Vital Signs: Vital Signs: Last Vital Signs Temp 98.3 F 04/13/23 07:34 Pulse 100 04/13/23 08:20 Resp 16 04/13/23 08:20 BP 108/62 04/13/23 07:34 Pulse Ox 94 04/13/23 07:34 O2 Del Method Nasal Cannula 04/13/23 07:34 O2 Flow Rate 2 04/13/23 07:34 FiO2 30 04/13/23 04:00 BMI result Body Mass Index 37.1 Appearance: Alert.? Oriented X3.? cvs: rrr, [id number] , no murmur res: air entry diminshed ,has b/l wheezing abd: no rebound or guarding ,nt, bs present. ext pulses present , no cyanosis. neuro: axo3 , nonfocal. DS: Data Data Completed and Pending Completed studies during hospitalization [Text1]: Procedures Assistance with Respiratory Ventilation, 24-96 Consecutive Hours, Continuous Positive Airway Pressure (02/21/23) Assistance with Respiratory Ventilation, Less than 24 Consecutive Hours, Continuous Positive Airway Pressure (02/02/23) Insertion of Endotracheal Airway into Trachea, Via Natural or Artificial Opening (12/21/22) Insertion of Infusion Device into Right Atrium, Percutaneous Approach (12/21/21) Insertion of Infusion Device into Right Brachial Vein, Percutaneous Approach (07/28/22) Insertion of Infusion Device into Superior Vena Cava, Percutaneous Approach (12/21/22) Insertion of Infusion Device into Upper Vein, Percutaneous Approach (02/21/23) Introduction of Vasopressor into Peripheral Vein, Percutaneous Approach (12/21/21) Respiratory Ventilation, 24-96 Consecutive Hours (12/21/22) Ultrasonography of Superior Vena Cava, Guidance (12/21/22) Labs on day of discharge: Laboratory Results - last 24 hr 04/12/23 04/12/23 04/12/23 11:31 15:56 19:41 POC Glucose 156 H 421 H* 412 H* 04/13/23 04/13/23 04/13/23 03:08 07:32 10:50 POC Glucose 204 H 100 116 H Imaging Chest x-ray: Radiologist's impression: ITS Impressions Chest X-Ray 04/07/23 19:55 IMPRESSION: Prominence of the pulmonary vasculature. Discharge Plan Discharge Anticipated Discharge Date/Time: 04/13/23 11:09 Patient Disposition: Home, Self-Care Discharge Diagnosis: copd excerebation Referrals: Kelli Benavides MD [Primary Care Provider] - 04/22/23 9:30 am (Tiene un horario de citas de seguimiento. Si no puede asistir a esta prisca, llame a la oficina para reprogramar.) Discharge Medications: New acetazolamide 250 mg tablet 250 mg PO DAILY Qty: 14 0RF prednisone 20 mg tablet 40 mg PO DAILY Qty: 8 0RF Continued ipratropium-albuterol 0.5 mg-3 mg(2.5 mg base)/3 mL solution for nebulization 3 ml PO Q4H PRN (Reason: for wheezing) Qty: 540 6RF gabapentin 300 mg capsule 300 mg PO BID Qty: 60 11RF albuterol sulfate [ProAir HFA] 90 mcg/actuation HFA aerosol inhaler 2 puff inhalation Q4H PRN (Reason: Shortness Of Breath Or Wheezing) Qty: 1 0RF omeprazole 40 mg capsule,delayed release(DR/EC) 40 mg PO DAILY@0630 30 Days Qty: 30 6RF diltiazem HCl [Tiadylt ER] 360 mg capsule,extended release 24 hr 360 mg PO DAILY rosuvastatin 5 mg tablet 5 mg PO BEDTIME roflumilast [Daliresp] 500 mcg tablet 500 mcg PO DAILY metformin 500 mg tablet extended release 24 hr 1,000 mg PO BID hydralazine 25 mg tablet 25 mg PO TIDWM insulin lispro 100 unit/mL solution 4 unit subcut TIDAC methadone 10 mg/mL Concentrate 50 mg PO DAILY Patient Comments: [facility] ADMINIST[facility] simethicone [Gas Relief (simethicone)] 80 mg Tablet,Chewable 80 mg PO QIDWMHS PRN (Reason: Abdominal Distention) Qty: 30 0RF lamotrigine 150 mg tablet 150 mg PO BID alendronate 70 mg tablet 70 mg PO QWEEK lidocaine 5 % adhesive patch,medicated 1 patch topical DAILY Rx Instructions: APPLY FOR 12 HOURS THEN REMOVE FOR 12 HOURS cholecalciferol (vitamin D3) 1,250 mcg (50,000 unit) capsule 1,250 mcg PO MOWE@0900 calcitonin (salmon) 200 unit/actuation spray,non-aerosol 1 spray intranasal DAILY Rx Instructions: one nostril every day, alternate sides. insulin glargine [Lantus U-100 Insulin] 100 unit/mL solution 35 unit subcut BEDTIME docusate sodium 100 mg capsule 100 mg PO BID PRN (Reason: constipation) zolpidem 5 mg tablet 5 mg PO BEDTIME PRN (Reason: Sleep) azathioprine 50 mg Tablet 100 mg PO DAILY ondansetron 4 mg tablet,disintegrating 4 mg PO Q8H PRN (Reason: nausea and vomiting) Qty: 20 0RF clonazepam 1 mg tablet 1 mg PO BID PRN (Reason: Anxiety) polyethylene glycol 3350 [Miralax] 17 gram/dose powder 17 g PO DAILY diclofenac potassium 50 mg Tablet 50 mg PO TID PRN (Reason: Pain) lisinopril 10 mg Tablet 10 mg PO DAILY 30 Days Qty: 30 0RF Protocol: Hold for SBP< HOLD for SBP < : 90 ammonium lactate 12 % lotion 1 appl topical DAILY PRN (Reason: Rash) furosemide [Lasix] 20 mg tablet 40 mg PO DAILY biotin 10 mg tablet 10 mg DAILY sulfamethoxazole-trimethoprim 400-80 mg tablet 1 tab DAILY ibuprofen 600 mg tablet 600 mg PO Q8H PRN (Reason: pain) prednisone 10 mg tablet 20 mg PO DAILY montelukast 10 mg tablet 10 mg PO BEDTIME loratadine [Claritin] 10 mg tablet 10 mg PO DAILY (DME) compress.stocking,knee,reg,med Misc See Rx Instructions .Route Qty: 2 0RF Rx Instructions: 15-20 cm arformoterol [Brovana] 15 mcg/2 mL solution for nebulization 2 ml inhalation Q12H 30 Days Qty: 120 11RF budesonide 0.5 mg/2 mL suspension for nebulization 0.5 mg inhalation BID Qty: 120 11RF tiotropium bromide [Spiriva with HandiHaler] 18 mcg capsule, w/inhalation device 1 cap inhalation DAILY Qty: 30 11RF (DME) nebulizers Misc See Rx Instructions .ROUTE Rx Instructions: As directed folic acid 1 mg tablet 1 mg PO DAILY 30 Days Qty: 30 6RF Discharge Orders: Discharge Order (Routine); Ordered 04/13/23 Ordered By: Marielos Guillermo Diet: Advance to usual diet Activity on Discharge: As tolerated Stand Alone Forms: Patient Portal Discharge page Care Plan Goals: Patient was admitted shortness of breath-found to have COPD exacerbation: Started on nebs, steroids, antibiotics also given Diamox and received BiPAP in ICU: Subsequently patient seems to be improved significantly now she is near her baseline respiratory status as well as oxygenation. Patient will be going home with p.o. steroids and already completed azithromycin. Also Pulmonary recommended to add acetazolamide 250 mg daily for now. Patient is to follow-up with PCP and Pulmonary out patiently. Health Concerns: as above. Plan of Treatment: as above. Assessment: as above.
[2023-04-13] MEDS: acetaZOLAMIDE 250 MG TABLET PO (12:07)
--- NOTE | 2023-04-13 12:32 | MHC.CM.PN ---
PT TO DC HOME TODAY WITH RESUMPTION OF [employer] SERVICES
== END 2023-04-13 14:12 | disposition home or self-care (01) | DRG 140 ==
LOC: HO.ED 19:50 → HO.EDOVER 21:51 → HO.ICU 22:16 → HO.IMC 04-09 02:01
PROVIDERS: Internal Medicine; Internal Medicine Pulmonary Disease; Admitting Provider Registered Nurse Community Health; Emergency Provider Emergency Medicine; PCP Family Medicine; Visit Provider Internal Medicine
DX: J44.1 Chronic obstructive pulmonary disease with (acute) exacerbation (principal); J96.21 Acute and chronic respiratory failure with hypoxia; D80.1 Nonfamilial hypogammaglobulinemia; Z99.81 Dependence on supplemental oxygen; J45.51 Severe persistent asthma with (acute) exacerbation; J96.22 Acute and chronic respiratory failure with hypercapnia; E66.2 Morbid (severe) obesity with alveolar hypoventilation; I10 Essential (primary) hypertension; F11.20 Opioid dependence, uncomplicated; E11.65 Type 2 diabetes mellitus with hyperglycemia; Z20.822 Contact with and (suspected) exposure to COVID-19; Z87.891 Personal history of nicotine dependence; Z79.4 Long term (current) use of insulin; Z79.84 Long term (current) use of oral hypoglycemic drugs; Z79.899 Other long term (current) drug therapy
CPT/HCPCS: 36415; 36600; 71045; 80048; 80076; 81003; 82040; 82803; 82947; 83605; 83690; 83735; 83880; 84100; 84132; 84145; 84484; 85025; 85027; 87040; 87502; 87635; 93005; 93306; 94640; 94660; 99285; C1758; J0456; J0696; J1120; J1650; J2930; J3475

== ENCOUNTER → 2023-04-07 17:13 | Outpatient (BNV) | payer MEDICAID, SELFPAY | PROVIDERS: Admitting Provider Registered Nurse Community Health; Emergency Provider Emergency Medicine; PCP Family Medicine; Visit Provider Internal Medicine Cardiovascular Disease | DX: R06.00 Dyspnea, unspecified (principal) | CPT/HCPCS: 93010 ==

== ENCOUNTER 2023-04-07 21:40 | Outpatient (BNV) | payer MEDICAID, SELFPAY | END 2023-04-08 07:00 | PROVIDERS: Admitting Provider Registered Nurse Community Health; Emergency Provider Emergency Medicine; PCP Family Medicine; Visit Provider Internal Medicine Cardiovascular Disease | DX: J96.21 Acute and chronic respiratory failure with hypoxia (principal) | CPT/HCPCS: 93306 ==

== ENCOUNTER → 2023-04-07 21:40 | Outpatient (BNV) | payer MEDICAID, SELFPAY | PROVIDERS: Admitting Provider Registered Nurse Community Health; Emergency Provider Emergency Medicine; Visit Provider Registered Nurse Community Health | DX: J96.21 Acute and chronic respiratory failure with hypoxia (principal); J96.22 Acute and chronic respiratory failure with hypercapnia; J81.1 Chronic pulmonary edema; J41.0 Simple chronic bronchitis; E66.2 Morbid (severe) obesity with alveolar hypoventilation | CPT/HCPCS: 99291 ==

== ENCOUNTER → 2023-04-07 21:40 | Outpatient (BNV) | payer MEDICAID, SELFPAY | PROVIDERS: Admitting Provider Registered Nurse Community Health; Emergency Provider Emergency Medicine; PCP Family Medicine; Visit Provider Internal Medicine | DX: J96.22 Acute and chronic respiratory failure with hypercapnia (principal); J96.21 Acute and chronic respiratory failure with hypoxia; J44.1 Chronic obstructive pulmonary disease with (acute) exacerbation; E11.65 Type 2 diabetes mellitus with hyperglycemia | CPT/HCPCS: 99232; 99239 ==

== ENCOUNTER → 2023-04-07 21:40 | Outpatient (BNV) | payer MEDICAID, SELFPAY | PROVIDERS: Admitting Provider Registered Nurse Community Health; Emergency Provider Emergency Medicine; Visit Provider Internal Medicine Pulmonary Disease | DX: J96.22 Acute and chronic respiratory failure with hypercapnia (principal); E66.2 Morbid (severe) obesity with alveolar hypoventilation; F11.20 Opioid dependence, uncomplicated; E11.9 Type 2 diabetes mellitus without complications | CPT/HCPCS: 99291 ==

== ENCOUNTER 2023-04-16 09:59 | Outpatient (REF) | payer MEDICAID, SELFPAY | END 2023-04-16 10:00 | disposition home or self-care (01) | LOC: HO.MDS 09:59 | PROVIDERS: Visit Provider Hospitalist | DX: D80.1 Nonfamilial hypogammaglobulinemia (principal) | CPT/HCPCS: 96365; 96366; J1569 ==

== ENCOUNTER 2023-04-22 17:16 | Outpatient (REF) | payer MEDICAID, SELFPAY ==
[2023-04-22 17:43] LABS: Appearance Urine Clear; Color Urine Yellow; Glucose Urine UA Negative (Negative); Leukocyte Esterase Urine Negative (Negative); Nitrite Urine Negative (Negative); PH 6.5 (5.0-9.0); Urine Blood Negative (Negative); Urine Ketones Negative (Negative); Urine Protein Negative (Neg-Trace)
[2023-04-22 17:49] LABS: Bacteria Urine None Seen (None Seen); Hyaline Casts Urine 0-2 /LPF (0-2); RBC Urine 0-2 /HPF (0-2); Squamous Epithelial Cell Urine 0-2 /HPF (0-2); WBC Urine 0-5 /HPF (0-5)
[2023-04-22 18:15] LABS: Creatinine Urine 65.86 mg/dL; Microalbum/Creatinine Ratio Ur 13.6 ug/mg cr (<30)
== END 2023-04-22 17:17 | disposition home or self-care (01) ==
LOC: HO.HHCLNP 17:16
PROVIDERS: Visit Provider Family Medicine
DX: R32 Unspecified urinary incontinence (principal); E11.65 Type 2 diabetes mellitus with hyperglycemia; Z79.4 Long term (current) use of insulin
CPT/HCPCS: 81001; 82043; 82570

== ENCOUNTER 2023-05-02 10:07 | Outpatient (AMB) | payer MEDICAID, SELFPAY ==
[2023-05-02 10:24] VITALS: BP 130/52; PULSE 102; O2SAT 97
--- NOTE | 2023-05-02 10:24 | A.OFFVIS_ITS ---
Intake Vital Signs 05/02/23 10:24 Height 5 ft 1 in BP 130/52 L Blood Pressure Location Lt brachial Position Sitting Pulse 102 H Pulse Source Pulse Oximeter Pulse Oximetry (%) 97 Oxygen Delivery Method Nasal Cannula Oxygen Flow Rate 2 Intake Visit Reasons: Shortness of Breath Intake Note: pt is here for follow up and states something is not right, her O2 has been down. Allergies No Known Allergies [No Known Allergies*] Allergy (Verified 05/03/23 16:24) HPI HPI Comments History of Present Illness Details The patient is a 53-year-old woman with a known history of asthma COPD overlap syndrome, chronic hypercarbic and hypoxic respiratory failure currently on oxygen and also on a noninvasive ventilator. She has been on high doses of prednisone currently on chronic steroids for ongoing respiratory issues. Recently she was placed on a prednisone taper. She is down to 30 mg at this time. She does respond well to noninvasive ventilator which she uses at nighttime and also as needed. Today she appears to be more dyspneic in appearance. It was apparent that her pulse ox was stable at 97% on her current oxygen however she was significantly tachycardic up to the 130s. I did offer her to get x-rays labs in an EKG today but, the patient opted on getting the tomorrow. I explained to her her symptoms worsen she is to go to the ER to be evaluated. We also talked about her respiratory failure where appears to be getting worse. The patient benefits from a wheelchair to help her with transportation and her appointments. She also may benefit from a sip and puff device as an accessory to noninvasive ventilator which she could potentially use it outside of the home for her progressive respiratory failure. She has been taking theophylline. Had planned to increase her theophylline. however, with the increased heart rate will hold off at this time. herABG from May 2019 demonstrated a pH 7.44 with a pCO2 of 69. Her bicarb also has been elevated at 41. Once we optimize her respiratory therapy with noninvasive ventilator will recheck her blood gas. In the meantime will check a theophylline level and also increase her theophylline level accordingly. Patient did develop worsening respiratory symptoms approximately 3-4 weeks ago. Therefore we will have her get checked for the SARS CoV 2 IgG antibodies. Unfortunately, the patient continues to smoke. We did talk about smoking cessation. Her is going to try to quit and once he quits he is not going to provide her with anymore cigarettes which should be very effective and helping her quit smoking. 12/19/2022 the patient is here for andrea escudero follow-up visit. He is in the hospital. She has been complaining of a right lower extremity pain. She had another Doppler which was negative for DVT. Her legs indeed swollen and somewhat erythematous. She is also having pain in the bottom referred. Breathing flowers she is still having hard time breathing. She is trying to use her noninvasive ventilator during the daytime. Her blood gases overall have been reassuring although her CO2 continues to climb slowly. Her bicarb is also elevated. Therefore will try some Diamox to see we can decrease the bicarb in order to be able to be released at additional CO2. If she tolerates the use of Diamox for 3 days we can also consider adding in the small dose 3 times a week. Will readdress that with repeat blood work in a venous gas in 2 weeks and then will have her see follow-up in 3 weeks. She also ended up getting the sip and puff device although she has not been able to use it because the pressures are too high. Will have to further adjust the pressures according. Since she left the hospital she has been on 40 mg of prednisone. Just yesterday she dropped down to 30 mg because she should really be at a baseline of 20 mg. She will then taper down weeks time to 25 and then again to 20 mg. We will increase her azathioprine that she is taking in order to try to minimize her steroid use and she can increase that to 100 mg. She is taking folate and will add biotin because she will have further hair loss. Unfortunately, even with all these issues the patient continues to smoke cigarettes. She understands that all this medications will being vain if she continues to smoke cigarettes worsening overall health. 01/14/2023 the patient is here for allison nuno follow-up visit. She has been having hard time with the breathing. She is been getting worse. She called initially last week because of the worsening respiratory symptoms. She had blood work done demonstrating chronic hypercarbic respiratory failure and hypoxia with a normal pH which is reassuring. She continues use her noninvasive ventilator at nighttime and also during the daytime. She was started on a prednisone taper and also given a course of levofloxacin for her worsening cough and chest congestion. Was also noted that during the hospitalizations her microbiology was positive for Aspergillus. The patient has been on immunomodulator therapies and also cortical steroids therefore significantly immunocompromised. Therefore, it is reasonable to treat the Aspergillus as a potential pathogen. Will finish the course of Levaquin and then she can start the voriconazole. The patient will going to wean down the prednisone down to 20 mg and will continue taking the Imuran 100 mg. the theophylline levels were un detected although she was told to stop the theophylline when she was in a hospital. Therefore will hold off on theophylline specially with other adverse effects in all the potential medication interactions. We did talk about the severity of her disease. She has end-stage respiratory failure. The patient will need to continue to use the ventilator during the nighttime and also during the daytime. Explained to them that has a battery life about 8 hours and therefore she can not carry the ventilator with her with a fullface mask and she can use it. The mouthpiece, sip and puff, did not work well for her she could not get a good seal and tolerated. Therefore will just continue using the fullface mask for now. If her condition continues to worsen did talk about briefly about a tracheostomy but she understands that this comes with other potential adverse effects and potential complications. 01/30/2023 the patient is here for a pulmonary follow-up visit. She is feeling better. She is down to 30 mg of prednisone. Has not been able to get lower than that. I had sent her a prescription for high dose Imuran but she has not been able to get as of yet. I will resubmit again to the pharmacy. When she is on the higher dose of Imuran hopefully we can decrease her prednisone some. She continues on the IVIG infusions. The patient did start the voriconazole although difficult for her to tolerated. She will continue to take it for now. She continues with her aggressive respiratory therapy. She still has excess lower extremity swelling specially the right lower extremity. We already did Doppler studies ruling out DVT. However, if the leg continues to be swollen I did advise her to go see urgent medical advice to get a repeat ultrasound. In the meantime will increase her diuretic to see if we can improve her volume status and therefore improve the lower extremity edema. The patient also is aware that this area can get infected. If it appears to be more erythem atous she can always call her primary care doctor urgent care to be evaluated for cellulitis. The patient continues use her noninvasive ventilator. She is with it all night and seems to be tolerating it well during the daytime as well. The patient does have advanced respiratory failure and at this point she will require assistance from her noninvasive ventilator between 12-16 hours a day we did talk about the portability of the noninvasive ventilator that she can use it outside of the home with a battery life of 6-8 hours. 02/20/2023 the patient is here for a [place] follow-up visit. Overall she is doing better. She continues on 20 mg of prednisone. Sometimes she does take an additional 1. She also increase the amiodarone 200 mg daily. Although does not seem to be accurate at the pharmacy. I will resend that again for the right amount of medication. She did complete the voriconazole already. She has been getting the IVIG infusions. She is going to go today for next dose. She will get that every months. She is also working on quitting smoking which is reassuring. She is also using the noninvasive ventilator which she seems to be tolerating better. Overall she is in a better state. She is getting out another ultrasound of her lower extremity to rule out DVT. I did give her prescription for compression stockings that she should use in case her lower extremity Dopplers comes back negative again for clots. If it does have a clot she should avoid using the compression stockings until she sees the ordering physician. The patient does continue to use her respiratory therapy. She has been using her oxygen with good effect. The oxygen has been affecting beneficial. She is willing to start pulmonary rehabilitation at this time. 03/27/2023 the patient is here for pulmon kota follow-up visit. The patient continues to do fairly well. She continues on the prednisone. Unfortunately she has not been able to get down below 30 mg. Typically takes 20 mg in the morning and 10 mg at nighttime. She did complete the voriconazole. And we also increase the Imuran. Seems to be tolerating it well although she still needs the prednisone because if she does not take it she feels like her breathing is getting worse. She has been using noninvasive ventilator with good effect. She is cutting down the smoking which is reassuring but she is still smoking. She continues IVIG therapy. This has been very helpful specially with immunocompromised state and minimizing hospitalizations. The patient also is going to start participating in pulmonary rehabilitation which I believe is a great option for her. She will get a flu shot today she will follow-up in about 4 weeks. 05/02/2023 the patient is here for a pulm onary follow-up visit. She was recently in the hospital with COPD exacerbation. Now she is back to her baseline. The patient continues to be on the prednisone. She typically takes around 30 mg a day although sometimes she may take more. We talked about different ways to decrease the amount of prednisone that she is taking. We also started her on Imuran which she seems to be tolerating a dose of 100 mg to minimize the need for prednisone. Still she has a difficult time. As far as her immune system she continues to receive IVIG every 4 weeks with good effect. Her breathing still not at baseline therefore she has been holding off on the pulmonary rehabilitation. Recently she felt like she started developing a cough into chest congestion. She is monitoring closely symptoms will go ahead and put her some antibiotics. As far as her noninvasive ventilation she continues to use her ventilator with very good effect. The patient does use it every night and she also uses it during the daytime. Her last few times them her blood gases have demonstrated stable hypercarbia consistent with chronic hypercarbic respiratory failure. She continues to smoke cigarettes although she is cutting down significantly. She is very motivated at this time. I am hopeful that she can call up in start pulmonary rehabilitation when she feels better. [facility] Medical History (Updated 05/03/23 @ 19:28 by Chris Corral MD) COPD exacerbation Respiratory failure Acute and chronic respiratory failure with hypercapnia Type 2 diabetes mellitus Opioid dependence Left leg swelling COPD (chronic obstructive pulmonary disease) Chronic lung disease Constipation Asthma with exacerbation Hypercapnic respiratory failure Salmonella gastroenteritis Pleuritic chest pain CHITO (obstructive sleep apnea) Cor pulmonale Obesity with alveolar hypoventilation Aspiration into airway Congestive heart failure Bacteremia Morbid obesity Chronic constipation Cellulitis COPD mixed type Leukocytosis Pulmonary congestion Vomiting Acute respiratory failure Status asthmaticus with COPD (chronic obstructive pulmonary disease) Hypertensive cardiovascular disease Morbid obesity Rib fractures Pulmonary nodule Abnormal chest x-ray Limb swelling Abdominal pain Diabetes mellitus Chronic respiratory failure Poor dentition Tobacco abuse Asthma-COPD overlap syndrome Hyperlipidemia, unspecified Essential hypertension Type 2 diabetes mellitus with unspecified complications Chronic respiratory failure Hypogammaglobulinemia Surgical History H/O tubal ligation Family History Father Diabetes Other Asthma Social History Household Members: Children Household Members Other:: daughter Housing: Apartment Do you presently have visiting nurse or other home services: Yes Unable to assess alcohol history related to: Unknown Alcohol intake: former Comment: patient refusing bed alarm Patient Tobacco Use Status: Former Tobacco user Quit Date: February 2022 Tobacco use type: Cigarette Cigarettes Per Day: 1 Years Smoked: 35 Smoked in Last 30 Days: No e-Cigarette/Vaping Use: Currently Using Second Hand Smoke Exposure: No Use of substances other than those prescribed or required for medical reasons: No Substance Use Type: Opiates Currently Displaying Signs/Symptoms of Drug Intoxication Withdrawal: No Have you been hit, kicked, punched, or otherwise hurt by someone within the past year? If so, by whom?: No Do you feel safe in your current relationship?: No Current Relationship Is there a partner from a previous relationship who is making you feel unsafe now?: No Are you made to feel afraid or neglected: No Advance Directives: Yes Advance Directives on File: Yes Advance Directives Date on File: 06/12/21 Do you have thoughts of harming others: None Do you have a plan to hurt others: No Plan Recently lost weight without trying: No Nutrition Risks: No Nutritional Risk Patient : No service: No Current occupational status: unemployed and disabled Review of Systems Const Denies night sweats ENT Denies change in voice, Denies lip swelling, Denies mouth pain, Reports nasal congestion, Reports nasal discharge and Denies tongue swelling Card Denies chest pain, Reports leg edema, Reports dyspnea and Reports dyspnea on exertion Resp Denies change in phlegm color, Denies chest congestion, Reports cough, Denies hemoptysis, Reports dyspnea, Reports dyspnea on exertion and Reports wheezing GI Reports abdominal pain Musc Denies no additional complaints Skin/Breast Denies pruritus and Denies lesions Neuro Denies Neuro-related abnormal movements Psych Denies no additional complaints Blade/Lymph Denies easy bleeding and Denies lymphadenopathy Aller/Immun Denies lip swelling, Denies tongue swelling and Reports wheezing Physical Exam Vital Signs: Last Vital Signs Pulse 102 H 05/02/23 10:24 BP 130/52 L 05/02/23 10:24 Pulse Ox 97 05/02/23 10:24 Oxygen Delivery Method Nasal Cannula 05/02/23 10:24 Oxygen Flow Rate 2 05/02/23 10:24 Last Vital Signs Temp 98.3 F 08/04/21 12:00 Pulse 102 H 08/04/21 12:00 Resp 20 08/04/21 12:00 BP 140/73 H 08/04/21 12:00 Pulse Ox 94 08/04/21 12:00 Oxygen Flow Rate 35 08/03/21 20:00 BMI result Body Mass Index 36.9 Const General: comfortable and alert HEENT Head: Yes normocephalic Neck Neck: Yes normal visual inspection, Yes full ROM and Yes no lymphadenopathy Chest Chest palpation & inspection: normal inspection of the chest Resp Effort & Inspection: normal respiratory effort and prolonged expiratory phase Auscultation: diminished lung sounds Cardio Rate: regular rate Rhythm: regular rhythm Heart sounds: S1 normal heart sound present and S2 normal heart sound present GI Palpation (GI): Soft to palpation and nontender Auscultation: normal bowel sounds Skin General skin exam: rashes and/or lesions noted Extrem Right lower extremity: lower leg Details: erythema and warmth Assessment & Plan Assessment & Plan (1) COPD (chronic obstructive pulmonary disease): Code(s): J44.9 - Chronic obstructive pulmonary disease, unspecified Qualifiers: COPD type: chronic bronchitis Chronic bronchitis type: simple Qualified Code(s): J41.0 - Simple chronic bronchitis (2) Left leg swelling: Code(s): M79.89 - Other specified soft tissue disorders (3) Asthma-COPD overlap syndrome: Code(s): J44.9 - Chronic obstructive pulmonary disease, unspecified (4) Chronic respiratory failure: Code(s): J96.10 - Chronic respiratory failure, unspecified whether with hypoxia or hypercapnia Qualifiers: Respiratory failure complication: hypoxia and hypercapnia Qualified Code(s): J96.11 - Chronic respiratory failure with hypoxia; J96.12 - Chronic respiratory failure with hypercapnia (5) Hypercapnic respiratory failure: Code(s): J96.92 - Respiratory failure, unspecified with hypercapnia Qualifiers: Chronicity: chronic Qualified Code(s): J96.12 - Chronic respiratory failure with hypercapnia (6) Tobacco abuse: Code(s): Z72.0 - Tobacco use (7) Hypogammaglobulinemia: Code(s): D80.1 - Nonfamilial hypogammaglobulinemia Plan continue NIV while sleeping and while awake. Mouth piece not helpful, will use FM start Doxycycline continue prednisone 20mg daily, sometimes takes 30mg bactrim PCP prophylaxis continue Imuran 100mg daily, monitor liver enzymes respiratory therapy, Nebs QID Needs to quit smoking, cutting down continue IVIG every 4 weeks Daliresp continue Lasix daily restart pulmonary rehab F/U 4 weeks Orders: Orders Sputum Cult + Gram stain 05/02/23 J44.9 - Chronic obstructive pulmonary disease, unspecified Medications: New doxycycline monohydrate 100 mg PO BID 21 days 42 tabs 0RF Quality Reporting (2019) Adult ([facility] 138/05/08/68) Smoking risk assessment performed?: Yes Patient Tobacco Use Status: Former Tobacco user Coding Level of Care Code Est Pt Level 4 (65967) Diagnoses Simple chronic bronchitis J41.0 COPD type: chronic bronchitis Chronic bronchitis type: simple Left leg swelling M79.89 Asthma-COPD overlap syndrome J44.9 Chronic respiratory failure with hypoxia and hypercapnia J96.11; J96.12 Respiratory failure complication: hypoxia and hypercapnia Chronic respiratory failure with hypercapnia J96.12 Chronicity: chronic Tobacco abuse Z72.0 Hypogammaglobulinemia D80.1 Time Spent (min) 18
== END 2023-05-02 10:53 | disposition home or self-care (01) ==
PROVIDERS: PCP Family Medicine; Visit Provider Hospitalist
DX: J41.0 Simple chronic bronchitis (principal); J96.11 Chronic respiratory failure with hypoxia; J96.12 Chronic respiratory failure with hypercapnia; Z87.891 Personal history of nicotine dependence; M79.89 Other specified soft tissue disorders; D80.1 Nonfamilial hypogammaglobulinemia
CPT/HCPCS: 99214

== ENCOUNTER 2023-05-02 10:07 | Outpatient (REF) | payer MEDICAID, SELFPAY ==
[2023-05-02 11:22] LABS: MANUAL DIFF FLAG NO
[2023-05-02 11:25] LABS: Venous Blood Gas Refer to POC result
[2023-05-02 11:35] LABS: VBG Base Excess 11.9 mmol/L; VBG HCO3 37 mmol/L (22-26); VBG pCO2 50 mmHg; VBG pH 7.47 (7.32-7.43); VBG pO2 94 mmHg
[2023-05-02 11:43] LABS: Alanine Aminotransferase 21 U/L (0-31); Albumin Level 3.8 g/dL (3.5-5.0); Alkaline Phosphatase 41 U/L (39-117); Anion Gap 13 (12-20); Aspartate Amino Transferase 18 U/L (5-31); Bilirubin Direct 0.1 mg/dL (0.0-0.5); Bilirubin Total 0.3 mg/dL (0.0-1.0); Blood Urea Nitrogen 24 mg/dL (9-16); Calcium 9.9 mg/dL (8.4-10.2); Carbon Dioxide 35 mmol/L (22-29); Chloride 95 mmol/L (96-108); Estimated Glomerular Filt Rate > 60; Glucose Random 117 mg/dL (60-115); Potassium 3.8 mmol/L (3.3-5.1); Sodium 139 mmol/L (135-145); Total Protein 6.8 g/dL (6.5-8.0)
[2023-05-02 12:05] LABS: Erythrocyte Sedimentation Rate 36 MM/HR (0-20)
[2023-05-02 12:11] LABS: Basophils Absolute Auto 0.1 X10*3/uL (0.0-0.2); Basophils Percent Auto 0.6 % (0-2); Eosinophils Absolute Auto 0.1 X10*3/uL (0.0-0.4); Eosinophils Percent Auto 0.7 % (0-4); Hemoglobin 11.9 g/dl (12.0-16.0); Imm Gran Abs Auto 0.34 X10*3/uL (0.00-0.03); Imm Gran Pct Auto 3.1 % (0.0-0.4); Lymphocytes Absolute Auto 2.1 X10*3/uL (1.2-4.9); Lymphocytes Percent Auto 19.6 % (20-40); Mean Corpuscular HGB Conc 32.2 g/dl (31.0-35.0); Mean Corpuscular Hemoglobin 31.5 pg (27.0-33.0); Mean Corpuscular Volume 97.9 fL (80.0-98.0); Mean Platelet Volume 10.1 fL (9.4-12.3); Monocytes Absolute Auto 0.9 X10*3/uL (0.1-1.2); Monocytes Percent Auto 8.2 % (2-11); NRBC Pct Auto 0.3 /100WBC (0.0-0.2); Neutrophils Absolute Auto 7.3 x10*3/uL (2.0-8.3); Neutrophils Percent Auto 67.8 % (45-73); Platelet Count 250 X10*3/uL (160-400); Red Blood Count 3.78 X10*6/uL (4.20-5.50); Red Cell Distribution Width 14.6 % (11.0-16.0); White Blood Count 10.8 X10*3/uL (4.8-10.8)
== END 2023-05-02 10:08 | disposition home or self-care (01) ==
LOC: HO.LAB 10:07
PROVIDERS: Absent Provider Family Medicine; PCP Family Medicine; Visit Provider Hospitalist
DX: J96.21 Acute and chronic respiratory failure with hypoxia (principal); J96.22 Acute and chronic respiratory failure with hypercapnia; M79.89 Other specified soft tissue disorders; J41.0 Simple chronic bronchitis; J96.11 Chronic respiratory failure with hypoxia; D80.1 Nonfamilial hypogammaglobulinemia; Z72.0 Tobacco use
CPT/HCPCS: 36415; 80048; 80076; 82803; 85025; 85652; 87070; 87205; 99212

== ENCOUNTER 2023-05-03 16:07 | Observation (INO) | payer MEDICAID, SELFPAY ==
--- NOTE | ~2023-05-03 | XR_ITS ---
EXAMINATION: PORTABLE CHEST 1 VIEW CLINICAL INFORMATION: SOB. COMPARISON: 04/07/2023. TECHNIQUE: Portable frontal view of the chest was obtained. FINDINGS: The lungs are well expanded. Peribronchial cuffing seen bilaterally suggesting underlying reactive or small airways disease but no dense focal infiltrate, effusion, edema, or pneumothorax. Cardiac and mediastinal silhouettes are within normal limits for size with vascular calcification in the aorta. Old healed right greater than left sided rib fractures again noted. No acute bony abnormality seen. XR/XR chest 1V IMPRESSION: Peribronchial cuffing suggesting underlying reactive or small airways disease but no dense consolidation.
--- NOTE | 2023-05-03 16:23 | ECG_ITS ---
Test Reason : DYSPNEA Blood Pressure : / mmHG Vent. Rate : 103 BPM Atrial Rate : 103 BPM P-R Int : 138 ms QRS Dur : 092 ms QT Int : 352 ms P-R-T Axes : 060 016 047 degrees QTc Int : 461 ms Sinus tachycardia Normal ECG When compared with ECG of 07-APR-2023 17:33, No significant change was found Referred By: Josee Araya Electronically Signed By:Harris Phillips
[2023-05-03 16:24] VITALS: BP 140/72; BP 169/89; PULSE 108; PULSE 111; RESP 20; TEMP 36.9; O2SAT 94; O2SAT 99; BMI 37.9
--- NOTE | 2023-05-03 16:27 | PC.NURSE ---
a&ox4. vss and up to date aside from being sinus tachy on the monitoring engineer. pt biba from home d/t sob/wheezing/no relief w/ medications x 3 days. pt has hx of copd - uses 2L via NC baseline. pt currently at 95% on 2L via NC. slight sob noted. respirations uneven/labored. pt tachypneic. pt transitioned from 2L via NC to bipap / at this time via RT. plan of care ongoing.
[2023-05-03 16:30] VITALS: BP 140/72; PULSE 110; RESP 22; O2SAT 97
--- NOTE | 2023-05-03 16:34 | PC.NURSE ---
xray bedside at this time.
[2023-05-03 16:36] VITALS: PULSE 111; RESP 22; O2SAT 95
[2023-05-03 16:48] VITALS: PULSE 111; RESP 23; O2SAT 97
[2023-05-03] MEDS: Albuterol Sulfate 5 MG, Albuterol/Iprat 2.5/0.5MG 3 ML 3 ML INHALE (16:48)
--- NOTE | 2023-05-03 17:02 | PC.NURSE ---
22gIV placed in the right forearm. delay in obtaining labs d/t pt being difficult stick/previous IV obtained by EMS not remaining patent. labs obtained/sent to lab. tech bedside performing ekg/obtaining 2nd set of cultures. pt remains on bipap at this time. respirations becoming even/less labored. call lu placed within reach.
[2023-05-03 17:05] LABS: Basophils Percent Auto 0.3 % (0-2); Hematocrit 36.3 % (37.0-47.0); Hemoglobin 11.9 g/dl (12.0-16.0); Imm Gran Abs Auto 0.14 X10*3/uL (0.00-0.03); Imm Gran Pct Auto 1.3 % (0.0-0.4); Lymphocytes Absolute Auto 0.4 X10*3/uL (1.2-4.9); Lymphocytes Percent Auto 4.1 % (20-40); MANUAL DIFF FLAG SCAN; Mean Corpuscular HGB Conc 32.8 g/dl (31.0-35.0); Mean Corpuscular Hemoglobin 31.5 pg (27.0-33.0); Mean Platelet Volume 8.6 fL (9.4-12.3); Monocytes Absolute Auto 0.3 X10*3/uL (0.1-1.2); Monocytes Percent Auto 2.7 % (2-11); Neutrophils Absolute Auto 9.7 x10*3/uL (2.0-8.3); Neutrophils Percent Auto 91.6 % (45-73); Platelet Count 278 X10*3/uL (160-400); Red Blood Count 3.78 X10*6/uL (4.20-5.50); Red Cell Distribution Width 14.4 % (11.0-16.0); SCAN SMEAR FLAG 1; White Blood Count 10.6 X10*3/uL (4.8-10.8)
[2023-05-03 17:09] LABS: VBG Base Excess 14.7 mmol/L; VBG HCO3 41 mmol/L (22-26); VBG pCO2 56 mmHg; VBG pH 7.46 (7.32-7.43); VBG pO2 126 mmHg
[2023-05-03 17:09] LABS: Venous Blood Gas Refer to POC result
[2023-05-03 17:24] LABS: INTERNATIONAL NORM RATIO 0.9 (0.9-1.1); Prothrombin Time 10.9 SEC (11.1-13.3)
[2023-05-03 17:31] LABS: Lactic Acid 2.8 mmol/L (0.5-2.0)
--- NOTE | 2023-05-03 17:31 | ED.SOB ---
HPI - SOB/Dyspnea General Chief Complaint: Dyspnea Stated Complaint: Pt coming from home w/SOB, per ems Time Seen by Provider: 05/03/23 16:23 Source: patient and EMS Mode of arrival: EMS History of Present Illness HPI Narrative: 53-year-old female arrives via EMS with increased shortness of breath over the past 3 days as well as wheezing, medications not helping and is on 2 L via nasal cannula at baseline. EMS provided albuterol/Atrovent. Related Data Home Medications Medication Instructions Recorded Confirmed loratadine 10 mg tablet (Claritin) 10 mg PO DAILY 12/30/19 04/08/23 montelukast 10 mg tablet 10 mg PO BEDTIME 12/30/19 04/08/23 diltiazem HCl 360 mg capsule,24 360 mg PO DAILY 11/16/20 04/08/23 hr,extended release (Tiadylt ER) roflumilast 500 mcg tablet 500 mcg PO DAILY 11/16/20 04/08/23 (Daliresp) rosuvastatin 5 mg tablet 5 mg PO BEDTIME 11/16/20 04/08/23 metformin 500 mg tablet,extended 1,000 mg PO BID 05/18/21 04/08/23 release 24 hr methadone 10 mg/mL oral concentrate 50 mg PO DAILY 06/06/21 04/08/23 hydralazine 25 mg tablet 25 mg PO TIDWM 11/02/21 04/08/23 insulin lispro 100 unit/mL 4 unit subcut TIDAC 11/02/21 04/08/23 subcutaneous solution clonazepam 1 mg tablet 1 mg PO BID PRN Anxiety 06/28/22 04/08/23 alendronate 70 mg tablet 70 mg PO QWEEK 07/29/22 04/08/23 lamotrigine 150 mg tablet 150 mg PO BID 07/29/22 04/08/23 lidocaine 5 % topical patch 1 patch topical DAILY 07/29/22 04/08/23 calcitonin (salmon) 200 1 spray intranasal DAILY 09/30/22 04/08/23 unit/actuation nasal spray cholecalciferol (vitamin D3) 1,250 1,250 mcg PO MOWE@0900 09/30/22 04/08/23 mcg (50,000 unit) capsule insulin glargine 100 unit/mL 35 unit subcut BEDTIME 09/30/22 04/08/23 subcutaneous solution (Lantus U-100 Insulin) docusate sodium 100 mg capsule 100 mg PO BID PRN constipation 10/20/22 04/08/23 zolpidem 5 mg tablet 5 mg PO BEDTIME PRN Sleep 10/20/22 04/08/23 nebulizers 11/08/22 04/08/23 diclofenac potassium 50 mg tablet 50 mg PO TID PRN Pain 12/21/22 04/08/23 polyethylene glycol 3350 17 17 g PO DAILY constipation 12/21/22 04/08/23 gram/dose oral powder (Miralax) ammonium lactate 12 % lotion 1 appl topical DAILY PRN Rash 02/02/23 04/08/23 furosemide 20 mg tablet (Lasix) 40 mg PO DAILY 02/02/23 04/08/23 azathioprine 50 mg tablet 100 mg PO DAILY 02/21/23 04/08/23 biotin 10 mg tablet 10 mg DAILY 04/08/23 04/08/23 ibuprofen 600 mg tablet 600 mg PO Q8H PRN pain 04/08/23 04/08/23 prednisone 10 mg tablet 20 mg PO DAILY 04/08/23 04/08/23 sulfamethoxazole 400 1 tab DAILY 04/08/23 04/08/23 mg-trimethoprim 80 mg tablet Previous Rx's Medication Instructions Recorded simethicone 80 mg chewable tablet 80 mg PO QIDWMHS PRN Abdominal 01/05/22 (Gas Relief (simethicone)) Distention #30 tabs ipratropium 0.5 mg-albuterol 3 mg 3 ml PO Q4H PRN for wheezing #540 09/02/22 (2.5 mg base)/3 mL nebulization mL soln folic acid 1 mg tablet 1 mg PO DAILY 30 days #30 tabs 12/19/22 lisinopril 10 mg tablet 10 mg PO DAILY 30 days #30 tabs 12/27/22 gabapentin 300 mg capsule 300 mg PO BID #60 caps 01/14/23 albuterol sulfate 90 mcg/actuation 2 puff inhalation Q4H PRN 02/19/23 aerosol inhaler (ProAir HFA) Shortness Of Breath Or Wheezing #1 ea arformoterol 15 mcg/2 mL solution 2 ml inhalation Q12H 30 days #120 02/20/23 for nebulization (Brovana) mL budesonide 0.5 mg/2 mL suspension 0.5 mg (2 mL) inhalation BID #120 02/20/23 for nebulization mL compress.stocking,knee,reg,med #2 ea 02/20/23 tiotropium bromide 18 mcg capsule 1 cap inhalation DAILY #30 ea 02/20/23 with inhalation device (Spiriva with HandiHaler) ondansetron 4 mg disintegrating 4 mg PO Q8H PRN nausea and 03/04/23 tablet vomiting #20 tabs omeprazole 40 mg capsule,delayed 40 mg PO DAILY@0630 30 days #30 03/31/23 release caps acetazolamide 250 mg tablet 250 mg PO DAILY #14 tabs 04/13/23 prednisone 20 mg tablet 40 mg (2 x 20 mg) PO DAILY #8 tabs 04/13/23 doxycycline monohydrate 100 mg 100 mg PO BID 21 days #42 tabs 05/02/23 tablet Allergies Allergy/AdvReac Type Severity Reaction Status Date / Time No Known Allergies Allergy Verified 05/03/23 16:24 [No Known Allergies*] Review of Systems Review of Systems: Pertinent positives and negatives as stated in HPI [facility] Past Medical History Source: nursing notes reviewed Medical History Respiratory failure Acute and chronic respiratory failure with hypercapnia Type 2 diabetes mellitus Opioid dependence Left leg swelling COPD (chronic obstructive pulmonary disease) Chronic lung disease Constipation Asthma with exacerbation Hypercapnic respiratory failure Salmonella gastroenteritis Pleuritic chest pain CHITO (obstructive sleep apnea) Cor pulmonale Obesity with alveolar hypoventilation Aspiration into airway Congestive heart failure Bacteremia Morbid obesity Chronic constipation Cellulitis COPD mixed type Leukocytosis Pulmonary congestion Vomiting COPD exacerbation Acute respiratory failure Status asthmaticus with COPD (chronic obstructive pulmonary disease) Hypertensive cardiovascular disease Morbid obesity Rib fractures Pulmonary nodule Abnormal chest x-ray Limb swelling Abdominal pain Diabetes mellitus Chronic respiratory failure Poor dentition Tobacco abuse Asthma-COPD overlap syndrome Hyperlipidemia, unspecified Essential hypertension Type 2 diabetes mellitus with unspecified complications Chronic respiratory failure Hypogammaglobulinemia Surgical History H/O tubal ligation Family History Family History Father Diabetes Other Asthma Social History Social History Household Members: Family Household Members Other:: daughter Housing: House Do you presently have visiting nurse or other home services: Yes Unable to assess alcohol history related to: Unknown Alcohol intake: former Comment: patient refusing bed alarm Patient Tobacco Use Status: Former Tobacco user Quit Date: February 2022 Tobacco use type: Cigarette Cigarettes Per Day: 1 Years Smoked: 35 Smoked in Last 30 Days: No e-Cigarette/Vaping Use: Currently Using Second Hand Smoke Exposure: No Use of substances other than those prescribed or required for medical reasons: No Substance Use Type: Opiates Advance Directives: Yes Advance Directives on File: Yes Advance Directives Date on File: 06/12/21 Patient : No service: No Current occupational status: unemployed and disabled Physical Exam Vital Signs: Vital Signs: Last Vital Signs Temp 98.5 F 05/03/23 16:24 Pulse 111 H 05/03/23 16:48 Resp 23 H 05/03/23 16:48 BP 140/72 H 05/03/23 16:30 Pulse Ox 97 05/03/23 16:30 O2 Del Method BiPAP 05/03/23 16:30 Oxygen Flow Rate 2 05/03/23 16:24 BMI result Body Mass Index 37.9 VITAL SIGNS: Reviewed. GENERAL: Well developed, well nourished, in no acute distress. HEAD: Normocephalic/atraumatic EYES: PERRLA, EOMI EARS: Ext canals without abnormality NOSE: Nares patent bilateral OROPHARYNX: no oral lesions noted, posterior pharynx clear NECK: Supple, no adenopathy LUNGS: Tachypnea, increased work of breathing, expiratory wheezes SpO2<97> on BiPAP CARDIOVASCULAR: Regular rate and rhythm without noted murmurs, no JVD or lower extremity edema. ABDOMEN: Soft, non-tender, non-distended with bowel sounds. MUSCULOSKELETAL: No tenderness, deformities, or effusions noted on gross inspection. EXTREMITIES: No cyanosis, clubbing or edema. SKIN: Inspection of the skin reveals no rashes NEUROLOGIC: Alert and oriented x 4. Strength and sensation to light touch were grossly intact x 4. Medications Administered Discontinued Medications Generic Name Dose Route Start Last Admin Trade Name Freq PRN Reason Stop Dose Admin Albuterol Sulfate 5 mg/ 0 mg 05/03/23 16:38 05/03/23 16:48 Albuterol/Ipratropium 3 ml INHALE 05/03/23 16:39 7.5 each ONCE ONE Administration Methylprednisolone Sodium Succinate 125 mg 05/03/23 17:35 05/03/23 17:54 Methylprednisolone Sod Succ 125 Mg/2 Ml Vial IVPUSH 05/03/23 17:36 125 mg ONCE ONE Administration Medical Decision Making Medical Decision Making [facility] Narrative: 53-year-old female with history and clinical presentation, DDX: Acute respiratory failure secondary to underlying chronic lung disease, low clinical suspicion for pneumonia or viral infection. INTERVENTION: BiPAP, ED bronch protocol, steroids Informed that lactic acid is 2.8 and feel that this is attributable to nebulized treatments. I reviewed all investigations and hematologic indices are negative for leukocytosis, there is a stable normocytic anemia and no thrombocytopenia. Coagulation studies are within normal limits. VBG does not demonstrate any respiratory acidosis but there is a mild hypercapnia -56. Chemistry indices without evidence of VERONIKA and no electrolyte or liver enzyme derangements. Lactic acidosis of 2.8 is secondary to nebulized treatments. Chest x-ray negative for infiltrate and no venous congestion and otherwise my interpretation is in agreement with radiology's impression. 1827: Will start titrate patient off of BiPAP at this time. 5: I discussed case with inpatient hospitalist who accepts admission. Differential Diagnosis Differential Diagnoses: The differential diagnosis associated with the presentation includes Please see the discussion above Admission/Observation Consideration of admission/observation: Escalation of care including admission/observation considered Please see the discussion above Consult Healthcare Provider Management of the patient was discussed with: Hospitalist Please see the discussion above Lab Data [facility] Lab Attestation statement: I reviewed the patient's lab results. Please see the discussion above 05/03/23 16:52 05/03/23 16:52 Labs: Lab Results 05/03/23 05/03/23 Range/Units 16:52 17:04 WBC 10.6 (4.8-10.8) X10*3/uL RBC 3.78 L (4.20-5.50) X10*6/uL Hgb 11.9 L (12.0-16.0) g/dl Hct 36.3 L (37.0-47.0) % MCV 96.0 (80.0-98.0) fL MCH 31.5 (27.0-33.0) pg MCHC 32.8 (31.0-35.0) g/dl RDW 14.4 (11.0-16.0) % Plt Count 278 (160-400) X10*3/uL MPV 8.6 L (9.4-12.3) fL Immature Gran % (Auto) 1.3 H (0.0-0.4) % Neut % (Auto) 91.6 H (45-73) % Lymph % (Auto) 4.1 L (20-40) % Placer % (Auto) 2.7 (2-11) % Eos % (Auto) 0.0 (0-4) % Baso % (Auto) 0.3 (0-2) % Lymph # (Auto) 0.4 L (1.2-4.9) X10*3/uL Placer # (Auto) 0.3 (0.1-1.2) X10*3/uL Eos # (Auto) 0.0 (0.0-0.4) X10*3/uL Baso # (Auto) 0.0 (0.0-0.2) X10*3/uL Abs Immat Gran (auto) 0.14 H (0.00-0.03) X10*3/uL Absolute Neuts (auto) 9.7 H (2.0-8.3) x10*3/uL Absolute Nucleated RBC 0.000 (0.0-0.012) X10*3/uL Nucleated RBC % (auto) 0.0 (0.0-0.2) /100WBC Smear Tech's Comments VERIFIED PT 10.9 L (11.1-13.3) SEC INR 0.9 (0.9-1.1) VBG pH 7.46 H (7.32-7.43) VBG pCO2 56 mmHg VBG pO2 126 mmHg VBG HCO3 41 H (22-26) mmol/L VBG O2 Saturation 99.0 % VBG Base Excess 14.7 mmol/L Sodium 137 (135-145) mmol/L Potassium 4.4 (3.3-5.1) mmol/L Chloride 92 L (96-108) mmol/L Carbon Dioxide 32 H (22-29) mmol/L Anion Gap 17 (12-20) BUN 20 H (9-16) mg/dL Creatinine 0.69 (0.5-1.4) mg/dL Estim Creat Clear Calc 96.8 Estimated GFR > 60 Random Glucose 183 H (60-115) mg/dL Lactic Acid 2.8 H* (0.5-2.0) mmol/L Calcium 9.4 (8.4-10.2) mg/dL Total Bilirubin 0.2 (0.0-1.0) mg/dL AST 31 (5-31) U/L ALT 25 (0-31) U/L Alkaline Phosphatase 47 (39-117) U/L Total Protein 7.6 (6.5-8.0) g/dL Albumin 3.9 (3.5-5.0) g/dL Independent Interpretation I performed an independent interpretation of an: EKG Interpretation: Sinus tachycardia, HR-103, no STEMI, TN/QRS/QTC is within normal limits, on comparison with prior EKG there are no significant changes. Radiology Impression Discussion of test interpretation with radiology: I have reviewed the radiologist's reading. Radiologist Impression: Please see the discussion above External Record Review External record reviewed: Outpatient record, Prior outpatient labs and Prior outpatient radiology Chronic Conditions Patient?s care impacted by: Diabetes, Hypertension and Other COPD Critical Care Time Critical Care Time Critical Care Time: Yes Total Critical Care Time: 60 Attestation: I personally attest to this time spent taking care of the patient. Discharge Plan Discharge Clinical Impression: Acute and chronic respiratory failure with hypercapnia, COPD (chronic obstructive pulmonary disease) Patient Disposition: Admitted As Inpatient
[2023-05-03 17:33] LABS: Alanine Aminotransferase 25 U/L (0-31); Albumin Level 3.9 g/dL (3.5-5.0); Alkaline Phosphatase 47 U/L (39-117); Anion Gap 17 (12-20); Aspartate Amino Transferase 31 U/L (5-31); Bilirubin Total 0.2 mg/dL (0.0-1.0); Blood Urea Nitrogen 20 mg/dL (9-16); Calcium 9.4 mg/dL (8.4-10.2); Carbon Dioxide 32 mmol/L (22-29); Chloride 92 mmol/L (96-108); Creatinine Clr Calc Pharmacy 96.8; Estimated Glomerular Filt Rate > 60; Glucose Random 183 mg/dL (60-115); Potassium 4.4 mmol/L (3.3-5.1); Sodium 137 mmol/L (135-145); Total Protein 7.6 g/dL (6.5-8.0)
[2023-05-03] MEDS: methylPREDNISolone Sod Succ 125 MG/2 ML VIAL IVPUSH (17:54)
--- NOTE | 2023-05-03 17:56 | PC.NURSE ---
medication administered per provider order. pt remains on bipap 18/ at this time - resting at 93%. pt verbalizing wob has decreased at this time. pt still sob, tachycardic on the patient monitor, and tachypneic. pt resting comfortably w/ eyes closed. plan of care ongoing.
[2023-05-03 18:03] LABS: SLIDE REVIEW VERIFIED
[2023-05-03 19:04] LABS: Reflex Lactate? Lactic Acid Added
--- NOTE | 2023-05-03 19:22 | P.HPHOSP_ITS ---
History of Present Illness Date of Service: 05/03/23 Chief Complaint: Dyspnea This is a 53-year-old female with pertinent history of chronic hypoxemic hypercapnic respiratory failure due to asthma-COPD overlap syndrome/OHS on 2 L baseline supplemental oxygen and nocturnal BiPAP, insulin-dependent diabetes mellitus, essential hypertension, mixed hyperlipidemia, opioid dependence on methadone, mood disorder who presents to the emergency department for evaluation of dyspnea. Patient states her symptoms started 2 days prior to presentation. She started having dyspnea which is worse with exertion. It was associated with wheezing. No relief with home O2 or home inhalers. Her symptoms have progressed over the last 24-48 hours. Patient denies chest pain, palpitations or cough. No fever, chills, abdominal pain, changes in urinary or bowel habits. No sick contacts. No orthopnea or PND In the emergency department, patient with reason despite multiple DuoNeb treatments. Review of Systems 2 Constitutional: Constitutional: Reports no additional constitutional complaints Cardiovascular: Cardiovascular: Reports dyspnea on exertion Respiratory: Respiratory: Reports dyspnea on exertion and Reports wheezing Gastrointestinal: Gastrointestinal: Reports no additional gastrointestinal complaints Genitourinary: Genitourinary: Reports no additional female genitourinary complaints Neurologic: Reports system reviewed and no additional complaints, except as documented Psychiatric: Psychiatric: Reports no additional psychiatric complaints Allergic/Immunologic: Allergic/Immunologic: Reports wheezing [facility] Medical History (Updated 05/03/23 @ 19:28 by Chris Corral MD) COPD exacerbation Respiratory failure Acute and chronic respiratory failure with hypercapnia Type 2 diabetes mellitus Opioid dependence Left leg swelling COPD (chronic obstructive pulmonary disease) Chronic lung disease Constipation Asthma with exacerbation Hypercapnic respiratory failure Salmonella gastroenteritis Pleuritic chest pain CHITO (obstructive sleep apnea) Cor pulmonale Obesity with alveolar hypoventilation Aspiration into airway Congestive heart failure Bacteremia Morbid obesity Chronic constipation Cellulitis COPD mixed type Leukocytosis Pulmonary congestion Vomiting Acute respiratory failure Status asthmaticus with COPD (chronic obstructive pulmonary disease) Hypertensive cardiovascular disease Morbid obesity Rib fractures Pulmonary nodule Abnormal chest x-ray Limb swelling Abdominal pain Diabetes mellitus Chronic respiratory failure Poor dentition Tobacco abuse Asthma-COPD overlap syndrome Hyperlipidemia, unspecified Essential hypertension Type 2 diabetes mellitus with unspecified complications Chronic respiratory failure Hypogammaglobulinemia Family History Father Diabetes Other Asthma Surgical History H/O tubal ligation Social History Household Members: Family Household Members Other:: daughter Housing: House Do you presently have visiting nurse or other home services: Yes Unable to assess alcohol history related to: Unknown Alcohol intake: former Comment: patient refusing bed alarm Patient Tobacco Use Status: Former Tobacco user Quit Date: February 2022 Tobacco use type: Cigarette Cigarettes Per Day: 1 Years Smoked: 35 Smoked in Last 30 Days: No e-Cigarette/Vaping Use: Currently Using Second Hand Smoke Exposure: No Use of substances other than those prescribed or required for medical reasons: No Substance Use Type: Opiates Advance Directives: Yes Advance Directives on File: Yes Advance Directives Date on File: 06/12/21 Patient : No service: No Current occupational status: unemployed and disabled Meds Allergies Allergy/AdvReac Type Severity Reaction Status Date / Time No Known Allergies Allergy Verified 05/03/23 16:24 [No Known Allergies*] Active Medications: Current Medications Acetaminophen (Acetaminophen 325 Mg Tablet) 650 mg PO Q6H PRN PRN Reason: Pain, Mild (Pain Scale 1-3) Dextrose (Dextrose 50 % 25 Gm/50 Ml Syringe) 25 gm IVPUSH Q15M PRN; Protocol PRN Reason: per Hypoglycemia Standing Ord. Enoxaparin Sodium (Enoxaparin Sodium 40 Mg/0.4 Ml Syringe) 40 mg SUBCUT Q24H ANA Glucose (Glucose Gel 15 Gm Gel..Gram.) 15 gm PO Q15M PRN; Protocol PRN Reason: per Hypoglycemia Standing Ord. Insulin Glargine (Insulin Glargine,Hum.Rec.Anlog 100 Unit/Ml 10 Ml Vial) 35 unit SUBCUT ONCE ONE Stop: 05/03/23 19:19 Insulin Human Lispro (Insulin Lispro 100 Unit/Ml 3 Ml Vial) 0 unit SUBCUT QIDACHS ANA; Protocol Melatonin (Melatonin 3 Mg Tablet) 6 mg PO BEDTIME PRN PRN Reason: Insomnia Methylprednisolone Sodium Succinate (Methylprednisolone Sod Succ 40 Mg/Ml Vial) 40 mg IVPUSH Q12H ANA Ondansetron HCl (Ondansetron Hcl 4 Mg/2 Ml Vial) 4 mg IVPUSH Q8H PRN PRN Reason: Nausea and Vomiting Sodium Chloride (0.9 % Sodium Chloride Flush 3 Ml Syringe) 3 ml IVFLUSH [facility] Home Medications Medication Instructions Recorded Confirmed Last Taken Type loratadine 10 mg tablet (Claritin) 10 mg PO DAILY 12/30/19 04/08/23 02/20/23 History montelukast 10 mg tablet 10 mg PO BEDTIME 12/30/19 04/08/23 02/20/23 History diltiazem HCl 360 mg capsule,24 360 mg PO DAILY 11/16/20 04/08/23 02/20/23 History hr,extended release (Tiadylt ER) roflumilast 500 mcg tablet 500 mcg PO DAILY 11/16/20 04/08/23 02/20/23 History (Daliresp) rosuvastatin 5 mg tablet 5 mg PO BEDTIME 11/16/20 04/08/23 02/20/23 History metformin 500 mg tablet,extended 1,000 mg PO BID 05/18/21 04/08/23 02/20/23 History release 24 hr methadone 10 mg/mL oral concentrate 50 mg PO DAILY 06/06/21 04/08/23 04/07/23 History hydralazine 25 mg tablet 25 mg PO TIDWM 11/02/21 04/08/23 02/20/23 History insulin lispro 100 unit/mL 4 unit subcut TIDAC 11/02/21 04/08/23 02/02/23 09:00 History subcutaneous solution clonazepam 1 mg tablet 1 mg PO BID PRN Anxiety 06/28/22 04/08/23 Unknown History alendronate 70 mg tablet 70 mg PO QWEEK 07/29/22 04/08/23 02/16/23 History lamotrigine 150 mg tablet 150 mg PO BID 07/29/22 04/08/23 02/20/23 History lidocaine 5 % topical patch 1 patch topical DAILY 07/29/22 04/08/23 02/20/23 History calcitonin (salmon) 200 1 spray intranasal DAILY 09/30/22 04/08/23 02/20/23 History unit/actuation nasal spray cholecalciferol (vitamin D3) 1,250 1,250 mcg PO MOWE@0900 09/30/22 04/08/23 02/19/23 History mcg (50,000 unit) capsule insulin glargine 100 unit/mL 35 unit subcut BEDTIME 09/30/22 04/08/23 02/02/23 09:00 History subcutaneous solution (Lantus U-100 Insulin) docusate sodium 100 mg capsule 100 mg PO BID PRN constipation 10/20/22 04/08/23 Unknown History zolpidem 5 mg tablet 5 mg PO BEDTIME PRN Sleep 10/20/22 04/08/23 Unknown History nebulizers 11/08/22 04/08/23 02/02/23 09:00 History diclofenac potassium 50 mg tablet 50 mg PO TID PRN Pain 12/21/22 04/08/23 Unknown History polyethylene glycol 3350 17 17 g PO DAILY constipation 12/21/22 04/08/23 02/20/23 History gram/dose oral powder (Miralax) ammonium lactate 12 % lotion 1 appl topical DAILY PRN Rash 02/02/23 04/08/23 Unknown History furosemide 20 mg tablet (Lasix) 40 mg PO DAILY 02/02/23 04/08/23 02/20/23 History azathioprine 50 mg tablet 100 mg PO DAILY 02/21/23 04/08/23 02/20/23 History biotin 10 mg tablet 10 mg DAILY 04/08/23 04/08/23 Unknown History ibuprofen 600 mg tablet 600 mg PO Q8H PRN pain 04/08/23 04/08/23 Unknown History prednisone 10 mg tablet 20 mg PO DAILY 04/08/23 04/08/23 Unknown History sulfamethoxazole 400 1 tab DAILY 04/08/23 04/08/23 Unknown History mg-trimethoprim 80 mg tablet Physical Exam 2 Vital Signs and Narrative: Vital Signs: Last Vital Signs Temp 98.5 F 05/03/23 16:24 Pulse 111 H 05/03/23 16:48 Resp 23 H 05/03/23 16:48 BP 140/72 H 05/03/23 16:30 Pulse Ox 97 05/03/23 16:30 O2 Del Method BiPAP 05/03/23 16:30 Oxygen Flow Rate 2 05/03/23 16:24 BMI result Body Mass Index 37.9 Middle-aged female lying in bed in mild distress on supplemental oxygen Neck supple, no JVD Tachycardia with regular rhythm, S1-S2 heard Bilateral wheezing without crackles Abdomen soft nontender, no guarding, no rigidity Patient is awake, alert and oriented to self, place, time and person ; no focal motor deficit Psych: Normal mood No pedal edema Results Labs 05/03/23 16:52 05/03/23 16:52 Labs: Laboratory Results - last 24 hr 05/03/23 05/03/23 16:52 17:04 MCV 96.0 MCH 31.5 MCHC 32.8 RDW 14.4 Plt Count 278 MPV 8.6 L Immature Gran % (Auto) 1.3 H Neut % (Auto) 91.6 H Lymph % (Auto) 4.1 L Brown % (Auto) 2.7 Eos % (Auto) 0.0 Baso % (Auto) 0.3 Lymph # (Auto) 0.4 L Brown # (Auto) 0.3 Eos # (Auto) 0.0 Baso # (Auto) 0.0 Abs Immat Gran (auto) 0.14 H Absolute Neuts (auto) 9.7 H Absolute Nucleated RBC 0.000 Nucleated RBC % (auto) 0.0 Smear Tech's Comments VERIFIED PT 10.9 L INR 0.9 VBG pH 7.46 H VBG pCO2 56 VBG pO2 126 VBG HCO3 41 H VBG O2 Saturation 99.0 VBG Base Excess 14.7 Anion Gap 17 Estim Creat Clear Calc 96.8 Estimated GFR > 60 Random Glucose 183 H Lactic Acid 2.8 H* Calcium 9.4 Total Bilirubin 0.2 AST 31 ALT 25 Alkaline Phosphatase 47 Total Protein 7.6 Albumin 3.9 Imaging Radiologist's Impressions: Impressions Chest X-Ray 05/03/23 16:36 IMPRESSION: Peribronchial cuffing suggesting underlying reactive or small airways disease but no dense consolidation. Assessment and Plan (1) COPD exacerbation: Status: Acute Plan This is a 53-year-old female with pertinent history of chronic hypoxemic hypercapnic respiratory failure due to asthma-COPD overlap syndrome/OHS on 2 L baseline supplemental oxygen and nocturnal BiPAP, insulin-dependent diabetes mellitus, essential hypertension, mixed hyperlipidemia, opioid dependence on methadone, mood disorder who presents to the emergency department for evaluation of dyspnea. #. Acute respiratory distress on chronic hypoxemic hypercarbic respiratory failure due to exacerbation of asthma-COPD overlap syndrome: Will admit patient with supplemental oxygen, uses 2 L at baseline. Initiating systemic steroids. Scheduled and p.r.n. DuoNebs. Continue home inhalers. Continue nocturnal BiPAP. #. Insulin-dependent diabetes mellitus with hyperglycemia: Initiating basal plus insulin regimen #. Lactic acidosis due to albuterol use. No sepsis #. Essential hypertension: Continue home antihypertensives #. Mixed hyperlipidemia: On statin #. Opioid dependence on methadone #. Mood disorder: Continue home mood stabilizers Med rec pending DVT prophylaxis: Lovenox Full code Quality Stroke Does the patient have a stroke diagnosis?: No VTE Prior VTE?: No VTE Risk Level:: Medical - moderate - high VTE Device Contraindication: Treatment Not Indicated VTE Drug Contraindication: N/A - Med Ordered
[2023-05-03] MEDS: Albuterol/Iprat 2.5/0.5MG 3 ML AMPUL.NEB INHALE (19:47)
[2023-05-03 19:49] VITALS: PULSE 101; RESP 22; O2SAT 93
[2023-05-03 19:55] LABS: ~Lactic Acid-LAB USE ONLY 2.9 mmol/L (0.5-2.0)
[2023-05-03 20:04] LABS: Glucose, Whole Blood 235 mg/dL (60-115)
[2023-05-03 20:09] VITALS: BP 121/67; PULSE 103; RESP 19; TEMP 36.9; O2SAT 95
[2023-05-03] MEDS: Insulin Lispro 100 UNIT/ML 3 ML VIAL SUBCUT (20:10)
[2023-05-03] MEDS: Insulin Glargine,Hum.rec.anlog 100 UNIT/ML 10 ML VIAL 35 UNIT SUBCUT (20:10)
[2023-05-03 20:16] LABS: Influenza A PCR NEGATIVE (Negative); Influenza B PCR NEGATIVE (Negative); Resp Syncy Virus RNA Qual PCR NEGATIVE (Negative); SARS COV2 PCR INHOUSE NEGATIVE (Negative)
[2023-05-03 21:37] LABS: Reflex Lactate? 2 Y
[2023-05-03 22:16] LABS: ~Lactic Acid-LAB USE ONLY 5.5 mmol/L (0.5-2.0)
--- NOTE | 2023-05-03 23:16 | PC.NURSE ---
Med rec done, Pt able to verbalize some of the meds she takes at home.
[2023-05-03] MEDS: Enoxaparin Sodium 40 MG/0.4 ML SYRINGE SUBCUT (23:54)
[2023-05-03] MEDS: clonazePAM 1 MG TABLET PO (23:55)
[2023-05-03] MEDS: lamoTRIgine 100 MG TABLET PO (23:55)
[2023-05-03] MEDS: lamoTRIgine 25 MG TABLET 50 MG PO (23:55)
[2023-05-03] MEDS: 0.9 % Sodium Chloride Flush 3 ML SYRINGE IVFLUSH (23:56)
[2023-05-04] VITALS (14 sets, daily range): BP systolic 134–143; BP diastolic 72–83; PULSE 90–110; RESP 18–24; TEMP 35.8–37; O2SAT 93–99
--- NOTE | 2023-05-04 03:00 | PC.NURSE ---
Pt stand by assist for commode use, changed over to hospital bed for comfort.
[2023-05-04 05:30] LABS: Basophils Percent Auto 0.2 % (0-2); Hematocrit 34.6 % (37.0-47.0); Hemoglobin 11.2 g/dl (12.0-16.0); Imm Gran Abs Auto 0.15 X10*3/uL (0.00-0.03); Imm Gran Pct Auto 1.5 % (0.0-0.4); Lymphocytes Absolute Auto 0.5 X10*3/uL (1.2-4.9); Lymphocytes Percent Auto 4.9 % (20-40); MANUAL DIFF FLAG SCAN; Mean Corpuscular HGB Conc 32.4 g/dl (31.0-35.0); Mean Corpuscular Hemoglobin 31.1 pg (27.0-33.0); Mean Corpuscular Volume 96.1 fL (80.0-98.0); Mean Platelet Volume 8.9 fL (9.4-12.3); Monocytes Absolute Auto 0.3 X10*3/uL (0.1-1.2); Monocytes Percent Auto 2.6 % (2-11); Neutrophils Absolute Auto 9.4 x10*3/uL (2.0-8.3); Neutrophils Percent Auto 90.8 % (45-73); Platelet Count 259 X10*3/uL (160-400); Red Cell Distribution Width 13.9 % (11.0-16.0); SCAN SMEAR FLAG 1; White Blood Count 10.3 X10*3/uL (4.8-10.8)
[2023-05-04 05:45] LABS: Anion Gap 11 (12-20); Blood Urea Nitrogen 19 mg/dL (9-16); Calcium 9.9 mg/dL (8.4-10.2); Carbon Dioxide 37 mmol/L (22-29); Chloride 93 mmol/L (96-108); Creatinine Clr Calc Pharmacy 106.1; Estimated Glomerular Filt Rate > 60; Glucose Random 242 mg/dL (60-115); Potassium 3.9 mmol/L (3.3-5.1); Sodium 137 mmol/L (135-145)
[2023-05-04 05:53] LABS: SLIDE REVIEW VERIFIED
[2023-05-04 07:22] LABS: Glucose, Whole Blood 232 mg/dL (60-115)
--- NOTE | 2023-05-04 07:28 | PC.NURSE ---
patient awake, alert and oriented. patient stating she needs her methadone today, last dose was yesterday 50mg according to pt. will call [facility] to confirm. off bipap at this time, utilized commode.
[2023-05-04] MEDS: Insulin Lispro 100 UNIT/ML 3 ML VIAL SUBCUT ×4 (07:34→22:35)
[2023-05-04] MEDS: methylPREDNISolone Sod Succ 40 MG/ML VIAL IVPUSH ×2 (07:35→22:26)
[2023-05-04] MEDS: 0.9 % Sodium Chloride Flush 3 ML SYRINGE IVFLUSH ×3 (07:35→22:26)
[2023-05-04] MEDS: Albuterol/Iprat 2.5/0.5MG 3 ML AMPUL.NEB INHALE ×5 (08:24→23:40)
--- NOTE | 2023-05-04 08:43 | PC.NURSE ---
spoke with alexandre from [facility] who verified patient receives 50mg methadone, received the bottles on 04/30/23. faxed form to pharmacy
--- NOTE | 2023-05-04 09:28 | HE.PHANOTE ---
RE: methadone Last dose 50mg given with take home bottles on 04/30 from [facility]
[2023-05-04 09:56] LABS: Glucose, Whole Blood 299 mg/dL (60-115)
--- NOTE | 2023-05-04 11:13 | P.PNIM_ITS ---
Subjective Subjective Date of Service: 05/04/23 Interval History: Complaining of shortness of breath with minimal exertion while combing hair, moving out of bed to commode or reaching out for things, denies fever, no chills denies smoking, have dog at home, denies sneezing complain of watery eyes, no worsening allergy symptoms, denies skin rash, no sick contacts Review of Systems All other system reviewed and negative. Physical Exam 2 Vital Signs: Vital Signs: Last Vital Signs Temp 98 F 05/04/23 09:50 Pulse 103 H 05/04/23 08:25 Resp 19 05/04/23 08:25 BP 137/72 05/04/23 09:50 Pulse Ox 99 05/04/23 09:50 O2 Del Method Nasal Cannula 05/04/23 09:50 O2 Flow Rate 3 05/04/23 07:46 Oxygen Flow Rate 2 05/03/23 16:24 BMI result Body Mass Index 37.9 Const: Other: General: awake alert x3 sitting comfortably in no acute distress Neck no JVD Anicteric sclera Resp: Diminished sounds bilaterally, prolonged expiration,no wheezing, no crackles CVS: S1,S2,RRR GI: abdomen soft nontender bowel sounds audible Skin: No rash Extremities bilateral pitting edema Neuro: motor grossly intact Psych: appropriate affect Objective Data Active Medications Acetaminophen (Acetaminophen 325 Mg Tablet) 650 mg PO Q6H PRN PRN Reason: Pain, Mild (Pain Scale 1-3) Acetazolamide (Acetazolamide 250 Mg Tablet) 250 mg PO DAILY [facility] Albuterol Sulfate (Albuterol Sulfate 90 Mcg 8 Gm Inhaler) 2 puff INHALE Q4H PRN PRN Reason: Shortness Of Breath Or Wheezing Albuterol/Ipratropium (Albuterol/Iprat 2.5/0.5mg 3 Ml Ampul.Neb) 3 ml INHALE RQ4H WHILE AWAKE [facility] Last Admin: 05/04/23 08:24 Dose: 3 ml Documented By: WILLIAM Albuterol/Ipratropium (Albuterol/Iprat 2.5/0.5mg 3 Ml Ampul.Neb) 3 ml INHALE Q4H PRN PRN Reason: Wheezing Calcitonin Adams (Calcitonin,Adams,Synth Nasal 3.7 Ml Bottle) 1 spray NOSTRIL-B DAILY [facility] Clonazepam (Clonazepam 1 Mg Tablet) 1 mg PO BID PRN PRN Reason: Anxiety Dextrose (Dextrose 50 % 25 Gm/50 Ml Syringe) 25 gm IVPUSH Q15M PRN; Protocol PRN Reason: per Hypoglycemia Standing Ord. Diltiazem HCl (Diltiazem Hcl Cd 180 Mg Cap.Er.24h) 360 mg PO DAILY [facility]; Protocol Enoxaparin Sodium (Enoxaparin Sodium 40 Mg/0.4 Ml Syringe) 40 mg SUBCUT Q24H [facility] Last Admin: 05/03/23 23:54 Dose: 40 mg Documented By: VIVIANE Furosemide (Furosemide 40 Mg Tablet) 40 mg PO DAILY [facility]; Protocol Gabapentin (Gabapentin 300 Mg Capsule) 300 mg PO BID [facility] Glucose (Glucose Gel 15 Gm Gel..Gram.) 15 gm PO Q15M PRN; Protocol PRN Reason: per Hypoglycemia Standing Ord. Insulin Human Lispro (Insulin Lispro 100 Unit/Ml 3 Ml Vial) 0 unit SUBCUT QIDACHS [facility]; Protocol Last Admin: 05/04/23 07:34 Dose: 4 unit Documented By: SEAN Lamotrigine (Lamotrigine 25 Mg Tablet) 150 mg PO BID [facility] Loratadine (Loratadine 10 Mg Tablet) 10 mg PO DAILY [facility] Melatonin (Melatonin 3 Mg Tablet) 6 mg PO BEDTIME PRN PRN Reason: Insomnia Methadone HCl (Methadone Hcl 20 Mg/2 Ml Oral.Conc) 50 mg PO DAILY [facility] Methylprednisolone Sodium Succinate (Methylprednisolone Sod Succ 40 Mg/Ml Vial) 40 mg IVPUSH Q12H [facility] Last Admin: 05/04/23 07:35 Dose: 40 mg Documented By: SEAN Omeprazole (Omeprazole 40 Mg Capsule.Dr) 40 mg PO DAILY@0630 [facility] Ondansetron HCl (Ondansetron Hcl 4 Mg/2 Ml Vial) 4 mg IVPUSH Q8H PRN PRN Reason: Nausea and Vomiting Polyethylene Glycol (Polyethylene Glycol 3350 17 Gm Powd.Pack) 17 gm PO DAILY [facility] Sodium Chloride (0.9 % Sodium Chloride Flush 3 Ml Syringe) 3 ml IVFLUSH QSHIFT [facility] Last Admin: 05/04/23 07:35 Dose: 3 ml Documented By: SEAN Labs 05/04/23 05:01 05/04/23 05:01 Labs: Laboratory Results - last 24 hr 02/05/03/23 05/03/23 16:52 17:04 19:30 MCV 96.0 MCH 31.5 MCHC 32.8 RDW 14.4 Plt Count 278 MPV 8.6 L Immature Gran % (Auto) 1.3 H Neut % (Auto) 91.6 H Lymph % (Auto) 4.1 L Harney % (Auto) 2.7 Eos % (Auto) 0.0 Baso % (Auto) 0.3 Lymph # (Auto) 0.4 L Harney # (Auto) 0.3 Eos # (Auto) 0.0 Baso # (Auto) 0.0 Abs Immat Gran (auto) 0.14 H Absolute Neuts (auto) 9.7 H Absolute Nucleated RBC 0.000 Nucleated RBC % (auto) 0.0 Smear Tech's Comments VERIFIED PT 10.9 L INR 0.9 VBG pH 7.46 H VBG pCO2 56 VBG pO2 126 VBG HCO3 41 H VBG O2 Saturation 99.0 VBG Base Excess 14.7 Anion Gap 17 Estim Creat Clear Calc 96.8 Estimated GFR > 60 POC Glucose Random Glucose 183 H Lactic Acid 2.8 H* Lactic Acid F/U @ 2Hr 2.9 H* Lactic Acid F/U @ 4Hr Calcium 9.4 Total Bilirubin 0.2 AST 31 ALT 25 Alkaline Phosphatase 47 Total Protein 7.6 Albumin 3.9 Influenza Type A (PCR) NEGATIVE Influenza Type B (PCR) NEGATIVE RSV RNA Qual (PCR) NEGATIVE SARS-CoV-2 RNA (RT-PCR) NEGATIVE 05/03/23 05/03/23 05/04/23 20:00 21:55 05:01 MCV 96.1 MCH 31.1 MCHC 32.4 RDW 13.9 Plt Count 259 MPV 8.9 L Immature Gran % (Auto) 1.5 H Neut % (Auto) 90.8 H Lymph % (Auto) 4.9 L Harney % (Auto) 2.6 Eos % (Auto) 0.0 Baso % (Auto) 0.2 Lymph # (Auto) 0.5 L Harney # (Auto) 0.3 Eos # (Auto) 0.0 Baso # (Auto) 0.0 Abs Immat Gran (auto) 0.15 H Absolute Neuts (auto) 9.4 H Absolute Nucleated RBC 0.000 Nucleated RBC % (auto) 0.0 Smear Tech's Comments VERIFIED PT INR VBG pH VBG pCO2 VBG pO2 VBG HCO3 VBG O2 Saturation VBG Base Excess Anion Gap 11 L Estim Creat Clear Calc 106.1 Estimated GFR > 60 POC Glucose 235 H Random Glucose 242 H Lactic Acid Lactic Acid F/U @ 2Hr Lactic Acid F/U @ 4Hr 5.5 H* Calcium 9.9 Total Bilirubin AST ALT Alkaline Phosphatase Total Protein Albumin Influenza Type A (PCR) Influenza Type B (PCR) RSV RNA Qual (PCR) SARS-CoV-2 RNA (RT-PCR) 05/04/23 05/04/23 07:17 09:52 MCV MCH MCHC RDW Plt Count MPV Immature Gran % (Auto) Neut % (Auto) Lymph % (Auto) Harney % (Auto) Eos % (Auto) Baso % (Auto) Lymph # (Auto) Harney # (Auto) Eos # (Auto) Baso # (Auto) Abs Immat Gran (auto) Absolute Neuts (auto) Absolute Nucleated RBC Nucleated RBC % (auto) Smear Tech's Comments PT INR VBG pH VBG pCO2 VBG pO2 VBG HCO3 VBG O2 Saturation VBG Base Excess Anion Gap Estim Creat Clear Calc Estimated GFR POC Glucose 232 H 299 H Random Glucose Lactic Acid Lactic Acid F/U @ 2Hr Lactic Acid F/U @ 4Hr Calcium Total Bilirubin AST ALT Alkaline Phosphatase Total Protein Albumin Influenza Type A (PCR) Influenza Type B (PCR) RSV RNA Qual (PCR) SARS-CoV-2 RNA (RT-PCR) Assessment and Plan (1) COPD exacerbation: Status: Acute (2) Type 2 diabetes mellitus: Status: Acute (3) Opioid dependence: Status: Acute Plan 53-year-old female with pertinent history of chronic hypoxemic hypercapnic respiratory failure due to asthma-COPD overlap syndrome/OHS on 2 L baseline supplemental oxygen and nocturnal BiPAP, insulin-dependent diabetes mellitus, essential hypertension, mixed hyperlipidemia, opioid dependence on methadone, mood disorder who presents to the emergency department for evaluation of dyspnea. #. Acute respiratory distress on chronic hypoxemic hypercarbic respiratory failure due to exacerbation of asthma-COPD overlap syndrome: Tachypneic, tachycardic on admission Continue home dose of supplemental oxygen, stable ABGs Continue DuoNeb updraft/IV steroids and continue nocturnal BiPAP Strongly recommend to completely abstain from smoking. Continue home dose of Lasix and acetazolamide. #. Insulin-dependent diabetes mellitus with hyperglycemia: Resume Lantus, diabetic diet and continue insulin sliding scale #. Lactic acidosis due to albuterol use. No sepsis #. Essential hypertension: Resume Cardizem is stable blood pressure will hold hydralazine and lisinopril and follow BP closely #. Mixed hyperlipidemia: Continue statin #. Opioid dependence on methadone maintenance dose #. Mood disorder: Continue home mood stabilizers # obesity grade 2 recommend low-calorie diet and weight reduction. Med rec completed DVT prophylaxis: Lovenox Full code Patient need continued inpatient hospitalization for treatment of acute COPD exacerbation requiring IV steroids and close clinical monitoring Quality Stroke Does the patient have a stroke diagnosis?: No VTE Prior VTE?: No VTE Risk Level:: Medical - moderate - high VTE Device Contraindication: Treatment Not Indicated VTE Drug Contraindication: N/A - Med Ordered
[2023-05-04 11:15] LABS: Glucose, Whole Blood 333 mg/dL (60-115)
[2023-05-04] MEDS: methADONE HCl 20 MG/2 ML ORAL.CONC 50 MG PO (12:00)
--- NOTE | 2023-05-04 12:14 | PHA.MEDREC ---
Pharmacy Consult ? Medication Reconciliation Pharmacy has completed the medication reconciliation. spoke with patient to confirm medications. Used claim history and recent office visit notes to verify medications she was unsure about such as the bactrim and prednisone. She reports being switched to losartan recently but her blood pressure was still high while taking it so she stopped and never went back to lisinopril. She reports taking one tablet of the metformin BID and claim history says she has the 500's. Her office note says for her to continue azathioprine 100mg daily however the patient has been picking up 50mg once daily.
[2023-05-04] MEDS: acetaZOLAMIDE 250 MG TABLET PO (12:49)
[2023-05-04] MEDS: dilTIAZem HCL CD 180 MG CAP.ER.24H 360 MG PO (12:49)
[2023-05-04] MEDS: Furosemide 40 MG TABLET PO (12:49)
--- NOTE | 2023-05-04 15:23 | MHC.CM.PN ---
PT REPORTS SHE LIVES ALONE AND HAS DAILY [employer] SERVICES SHE ALSO REPORTS BEING ACTIVE WITH A VNA FOR DAILY METHADONE DELIVERY SHE BELIEVES IT IS [facility] SHE HAS HOME O2 AND A WALKER PCP: FILOMENA HERNANDEZ HCP ON FILE OBSERVATION NOTICE DELIVERED DCP: HOME, RESUME SERVICES TRANSPORT: [employer] [facility] BLS
[2023-05-04 16:32] LABS: Glucose, Whole Blood 189 mg/dL (60-115)
[2023-05-04 20:41] LABS: Glucose, Whole Blood 306 mg/dL (60-115)
[2023-05-04] MEDS: Enoxaparin Sodium 40 MG/0.4 ML SYRINGE SUBCUT (22:25)
[2023-05-04] MEDS: lamoTRIgine 25 MG TABLET 150 MG PO (22:26)
[2023-05-04] MEDS: Insulin Glargine,Hum.rec.anlog 100 UNIT/ML 10 ML VIAL 40 UNIT SUBCUT (22:26)
[2023-05-04] MEDS: Gabapentin 300 MG CAPSULE PO (22:26)
[2023-05-05 04:00] VITALS: BP 137/83; PULSE 89; RESP 20; TEMP 36.3; O2SAT 100
[2023-05-05 04:34] VITALS: PULSE 87; RESP 20; O2SAT 99
[2023-05-05 04:35] VITALS: PULSE 85; RESP 20; O2SAT 99
[2023-05-05] MEDS: Albuterol/Iprat 2.5/0.5MG 3 ML AMPUL.NEB INHALE ×3 (04:35→10:58)
[2023-05-05] MEDS: Omeprazole 40 MG CAPSULE.DR PO (05:57)
[2023-05-05 06:07] LABS: Anion Gap 17 (12-20); Blood Urea Nitrogen 30 mg/dL (9-16); Calcium 10.6 mg/dL (8.4-10.2); Carbon Dioxide 33 mmol/L (22-29); Chloride 92 mmol/L (96-108); Creatinine Clr Calc Pharmacy 89.1; Estimated Glomerular Filt Rate > 60; Glucose Random 243 mg/dL (60-115); Potassium 4.5 mmol/L (3.3-5.1); Sodium 137 mmol/L (135-145)
[2023-05-05 07:07] VITALS: BP 140/82; PULSE 87; RESP 20; TEMP 36.4; O2SAT 95
[2023-05-05 07:34] VITALS: PULSE 84; RESP 20; O2SAT 97
[2023-05-05 07:38] LABS: Glucose, Whole Blood 298 mg/dL (60-115)
[2023-05-05] MEDS: Insulin Lispro 100 UNIT/ML 3 ML VIAL SUBCUT ×2 (07:47→11:26)
[2023-05-05] MEDS: Acetaminophen 325 MG TABLET 650 MG PO (08:30)
[2023-05-05] MEDS: 0.9 % Sodium Chloride Flush 3 ML SYRINGE IVFLUSH (08:30)
[2023-05-05] MEDS: methADONE HCl 20 MG/2 ML ORAL.CONC 50 MG PO (08:31)
[2023-05-05] MEDS: dilTIAZem HCL CD 180 MG CAP.ER.24H 360 MG PO (08:31)
[2023-05-05] MEDS: Furosemide 40 MG TABLET PO (08:32)
[2023-05-05] MEDS: acetaZOLAMIDE 250 MG TABLET PO (08:32)
[2023-05-05] MEDS: lamoTRIgine 25 MG TABLET 150 MG PO (08:32)
[2023-05-05] MEDS: Gabapentin 300 MG CAPSULE PO (08:32)
[2023-05-05] MEDS: Loratadine 10 MG TABLET PO (08:32)
[2023-05-05] MEDS: polyethylene glycoL 3350 17 GM POWD.PACK PO (08:32)
[2023-05-05] MEDS: methylPREDNISolone Sod Succ 40 MG/ML VIAL IVPUSH (08:35)
[2023-05-05] MEDS: Calcitonin,Salmon,Synth Nasal 3.7 ML BOTTLE 1 SPRAY NOSTRIL-B (08:39)
[2023-05-05 10:59] VITALS: RESP 20
--- NOTE | 2023-05-05 10:59 | MHC.CM.PN ---
HOME [facility] [employer] [facility] AND [facility] DELIVERED METHADONE
--- NOTE | 2023-05-05 11:02 | PM.DS ---
DS: Providers Provider Date of Service: 05/05/23 Date of admission: 05/03/23 19:18 Primary care physician: Unknown Physician DS: Diagnosis Discharge Diagnosis (1) COPD exacerbation: Status: Acute (2) Type 2 diabetes mellitus: Status: Acute (3) Opioid dependence: Status: Acute DS: Summary Hospital Course Hospital Course: History presenting illness: Date of Service: 05/03/23 Chief Complaint: Dyspnea This is a 53-year-old female with pertinent history of chronic hypoxemic hypercapnic respiratory failure due to asthma-COPD overlap syndrome/OHS on 2 L baseline supplemental oxygen and nocturnal BiPAP, insulin-dependent diabetes mellitus, essential hypertension, mixed hyperlipidemia, opioid dependence on methadone, mood disorder who presents to the emergency department for evaluation of dyspnea. Patient states her symptoms started 2 days prior to presentation. She started having dyspnea which is worse with exertion. It was associated with wheezing. No relief with home O2 or home inhalers. Her symptoms have progressed over the last 24-48 hours. Patient denies chest pain, palpitations or cough. No fever, chills, abdominal pain, changes in urinary or bowel habits. No sick contacts. No orthopnea or PND In the emergency department, patient with reason despite multiple DuoNeb treatments. Hospital course: 53-year-old female with pertinent history of chronic hypoxemic hypercapnic respiratory failure due to asthma-COPD overlap syndrome/OHS on 2 L baseline supplemental oxygen and nocturnal BiPAP, insulin-dependent diabetes mellitus, essential hypertension, mixed hyperlipidemia, opioid dependence on methadone, mood disorder who presents to the emergency department for evaluation of dyspnea and admitted to medical floor with a diagnosis of Acute respiratory distress on chronic hypoxemic hypercarbic respiratory failure due to exacerbation of asthma-COPD overlap syndrome, treated with DuoNeb updraft/IV steroids and continued on nocturnal BiPAP, ABGs were stable at baseline patient was also continued on home dose of Lasix and acetazolamide patient responded well to above treatment and seems to be at baseline therefore being discharged home and recommended to continue prednisone 20 mg daily and continue 2 L of oxygen, strongly recommend to avoid from smoking, secondhand smoke and allergens, recommend close outpatient follow-up with pulmonology #. Insulin-dependent diabetes mellitus with hyperglycemia, elevated blood sugars due to steroids recommend to continue Lantus, diabetic diet and continue insulin sliding scale #. Acute Lactic acidosis due to albuterol use. No further workup was required. #. Essential hypertension: Recommend to continue home antihypertensives. #. Mixed hyperlipidemia: Continue statin #. Opioid dependence on methadone maintenance dose #. Mood disorder: Continue home mood stabilizers # obesity grade 2 recommend low-calorie diet recommended. Time Attestation Discharge coordination time: Greater than 30 minutes Quality: Safe Use of Opioids Does Pt have an Active Cancer Diagnosis on the Problem List?: No Quality: Stroke Does the patient have a stroke diagnosis?: No Physical Exam Vital Signs: Vital Signs: Last Vital Signs Temp 97.6 F 05/05/23 07:07 Pulse 84 05/05/23 07:34 Resp 20 05/05/23 10:59 BP 140/82 H 05/05/23 07:07 Pulse Ox 95 05/05/23 07:07 O2 Del Method BiPAP 05/05/23 07:07 O2 Flow Rate 3 05/05/23 04:00 Oxygen Flow Rate 2 05/03/23 16:24 BMI result Body Mass Index 37.9 Const: Other: General: awake alert x3 sitting comfortably in no acute distress Neck no JVD Anicteric sclera Resp: Diminished breath sounds bilaterally, no wheezing, no crackles CVS: S1,S2,RRR GI: abdomen soft non tender bowel sounds audible Skin: No rash Extremities bilateral pitting edema Neuro: motor grossly intact Psych: appropriate affect DS: Data Data Completed and Pending Completed studies during hospitalization [Text1]: Procedures Assistance with Respiratory Ventilation, 24-96 Consecutive Hours, Continuous Positive Airway Pressure (02/21/23) Assistance with Respiratory Ventilation, Less than 24 Consecutive Hours, Continuous Positive Airway Pressure (04/07/23) Insertion of Endotracheal Airway into Trachea, Via Natural or Artificial Opening (12/21/22) Insertion of Infusion Device into Right Atrium, Percutaneous Approach (12/21/21) Insertion of Infusion Device into Right Brachial Vein, Percutaneous Approach (07/28/22) Insertion of Infusion Device into Superior Vena Cava, Percutaneous Approach (12/21/22) Insertion of Infusion Device into Upper Vein, Percutaneous Approach (02/21/23) Introduction of Vasopressor into Peripheral Vein, Percutaneous Approach (12/21/21) Respiratory Ventilation, 24-96 Consecutive Hours (12/21/22) Ultrasonography of Superior Vena Cava, Guidance (12/21/22) Labs on day of discharge: Laboratory Results - last 24 hr 05/04/23 05/04/23 05/04/23 11:12 16:15 20:36 Hold Purple Top Sodium Potassium Chloride Carbon Dioxide Anion Gap BUN Creatinine Estim Creat Clear Calc Estimated GFR POC Glucose 333 H 189 H 306 H Random Glucose Calcium 05/05/23 05/05/23 05:10 07:35 Hold Purple Top SEE NOTE Sodium 137 Potassium 4.5 Chloride 92 L Carbon Dioxide 33 H Anion Gap 17 BUN 30 H Creatinine 0.75 Estim Creat Clear Calc 89.1 Estimated GFR > 60 POC Glucose 298 H Random Glucose 243 H Calcium 10.6 H D Preliminary micro results at discharge 05/03/23 17:45 Blood Culture - Preliminary Blood - Venous No growth after 24 hours. 05/03/23 16:52 Blood Culture - Preliminary Blood - Venous No growth after 24 hours. Discharge Plan Discharge Anticipated Discharge Date/Time: 05/05/23 10:41 Patient Disposition: Home, Self-Care Discharge Diagnosis: Acute on chronic hypoxic/hypercarbic respiratory failure Referrals: Physician,Unknown J [Primary Care Provider] - 1 Week Discharge Medications: Continued ipratropium-albuterol 0.5 mg-3 mg(2.5 mg base)/3 mL solution for nebulization 3 ml PO Q4H PRN (Reason: for wheezing) Qty: 540 6RF gabapentin 300 mg capsule 300 mg PO BID Qty: 60 11RF albuterol sulfate [ProAir HFA] 90 mcg/actuation HFA aerosol inhaler 2 puff inhalation Q4H PRN (Reason: Shortness Of Breath Or Wheezing) Qty: 1 0RF omeprazole 40 mg capsule,delayed release(DR/EC) 40 mg PO DAILY@0630 30 Days Qty: 30 6RF diltiazem HCl [Tiadylt ER] 360 mg capsule,extended release 24 hr 360 mg PO DAILY rosuvastatin 5 mg tablet 5 mg PO BEDTIME roflumilast [Daliresp] 500 mcg tablet 500 mcg PO DAILY metformin 500 mg tablet extended release 24 hr 500 mg PO BID hydralazine 25 mg tablet 25 mg PO TIDWM insulin lispro 100 unit/mL solution 4 unit subcut TIDAC methadone 10 mg/mL Concentrate 50 mg PO DAILY Patient Comments: [facility] lamotrigine 150 mg tablet 150 mg PO BID cholecalciferol (vitamin D3) 1,250 mcg (50,000 unit) capsule 1,250 mcg PO QWEEK calcitonin (salmon) 200 unit/actuation spray,non-aerosol 1 spray intranasal DAILY Rx Instructions: one nostril every day, alternate sides. insulin glargine [Lantus U-100 Insulin] 100 unit/mL solution 45 unit subcut BEDTIME docusate sodium 100 mg capsule 100 mg PO BID PRN (Reason: constipation) azathioprine 50 mg Tablet 50 mg PO DAILY clonazepam 1 mg tablet 1 mg PO BID PRN (Reason: Anxiety) polyethylene glycol 3350 [Miralax] 17 gram/dose powder 17 g PO DAILY ammonium lactate 12 % lotion 1 appl topical DAILY PRN (Reason: Rash) biotin 10 mg tablet 10 mg DAILY sulfamethoxazole-trimethoprim 400-80 mg tablet 1 tab DAILY prednisone 10 mg tablet 20 mg PO DAILY zolpidem 5 mg tablet 5 mg PO BEDTIME PRN (Reason: Sleep) Rx Instructions: use with 100% BIPAP compliance only diclofenac sodium 1 % gel 4 g TOPICAL QID PRN (Reason: Pain) montelukast 10 mg tablet 10 mg PO BEDTIME loratadine [Claritin] 10 mg tablet 10 mg PO DAILY (DME) compress.stocking,knee,reg,med Misc See Rx Instructions .Route Qty: 2 0RF Rx Instructions: 15-20 cm arformoterol [Brovana] 15 mcg/2 mL solution for nebulization 2 ml inhalation Q12H 30 Days Qty: 120 11RF budesonide 0.5 mg/2 mL suspension for nebulization 0.5 mg inhalation BID Qty: 120 11RF tiotropium bromide [Spiriva with HandiHaler] 18 mcg capsule, w/inhalation device 1 cap inhalation DAILY Qty: 30 11RF (DME) nebulizers Misc See Rx Instructions .ROUTE Rx Instructions: As directed folic acid 1 mg tablet 1 mg PO DAILY 30 Days Qty: 30 6RF Discontinued ibuprofen 600 mg tablet 600 mg PO Q8H PRN (Reason: pain) No Action furosemide 20 mg tablet 40 mg PO DAILY 90 Days Qty: 180 0RF Discharge Orders: Discharge Order (Routine); Ordered 05/05/23 Ordered By: Vel Ramires Diet: Diabetic diet Activity on Discharge: As tolerated Stand Alone Forms: Patient Portal Discharge page Care Plan Goals: COPD exacerbation resolved take prednisone 20 mg daily with food continue home oxygen 1.5-2 L Continue home inhalers Health Concerns: dm Strongly recommend to abstain from smoking avoid secondhand smoke avoid allergens Plan of Treatment: Follow-up with primary care physician and pulmonology. Assessment: as above Discharge Date/Time: 05/05/23 13:00
--- NOTE | 2023-05-05 11:18 | MHC.CM.PN ---
[facility] NOTIFIED OF DC
[2023-05-05 11:19] LABS: Glucose, Whole Blood 260 mg/dL (60-115)
== END 2023-05-05 13:00 | disposition home or self-care (01) ==
LOC: HO.ED 19:25 → HO.EDOVER 19:42 → HO.S3 05-04 07:46
PROVIDERS: Admitting Provider Student in an Organized Health Care Education/Training Program; Emergency Provider Student in an Organized Health Care Education/Training Program; Visit Provider Hospitalist
DX: J96.22 Acute and chronic respiratory failure with hypercapnia (principal); J96.21 Acute and chronic respiratory failure with hypoxia; E87.20 Acidosis, unspecified; J44.9 Chronic obstructive pulmonary disease, unspecified; I11.0 Hypertensive heart disease with heart failure; I50.9 Heart failure, unspecified; E11.65 Type 2 diabetes mellitus with hyperglycemia; E78.5 Hyperlipidemia, unspecified; F39 Unspecified mood [affective] disorder; F11.90 Opioid use, unspecified, uncomplicated; J44.1 Chronic obstructive pulmonary disease with (acute) exacerbation; Z99.81 Dependence on supplemental oxygen; Z79.4 Long term (current) use of insulin; Z79.899 Other long term (current) drug therapy; Z11.52 Encounter for screening for COVID-19; Z20.828 Contact with and (suspected) exposure to other viral communicable diseases
CPT/HCPCS: 0241U; 36415; 71045; 80048; 80053; 82803; 82947; 83605; 85025; 85610; 87040; 93005; 94640; 94660; 96372; 96374; 96376; 99221; 99285; J1650; J2920; J2930

== ENCOUNTER → 2023-05-03 16:23 | Outpatient (BNV) | payer MEDICAID, SELFPAY | PROVIDERS: Admitting Provider Student in an Organized Health Care Education/Training Program; Emergency Provider Student in an Organized Health Care Education/Training Program; Visit Provider Internal Medicine Cardiovascular Disease | DX: R00.0 Tachycardia, unspecified (principal) | CPT/HCPCS: 93010 ==

== ENCOUNTER → 2023-05-03 16:54 | Outpatient (BNV) | payer MEDICAID, SELFPAY | PROVIDERS: Emergency Provider Student in an Organized Health Care Education/Training Program; Visit Provider Student in an Organized Health Care Education/Training Program | DX: J44.1 Chronic obstructive pulmonary disease with (acute) exacerbation (principal); E11.9 Type 2 diabetes mellitus without complications; F11.20 Opioid dependence, uncomplicated | CPT/HCPCS: 99222; 99233; 99238 ==

== ENCOUNTER 2023-05-13 09:44 | Outpatient (REF) | payer MEDICAID, SELFPAY ==
--- NOTE | ~2023-05-13 | MM_ITS ---
EXAMINATION: BONE DENSITOMETRY CLINICAL INDICATION: Osteoporosis. On systemic steroids. Has been on alendronate. COMPARISON: Previous BD dated 12/02/2019 and baseline BD dated 08/03/2015. TECHNIQUE: Using a [employer] DXA System (software version: 13.1) manufactured by [employer], dual-energy x-ray absorptiometry was performed of the lumbar spine and left hip. The images are of good technical quality. Summary results are attached. FINDINGS: LEFT FEMUR, NECK: Current: BMD 0.632 g/cm2, Z-score -2.7, T-score -2.9, osteoporosis. Prior: BMD 0.754 g/cm2. Baseline: BMD 0.813 g/cm2. LEFT FEMUR, TOTAL: Current: BMD 0.720 g/cm2, Z-score -2.5, T-score -2.3, osteopenia, 10.4% decrease from previous, 16.7% decrease from baseline (<5% change is not significant). Prior: BMD 0.804 g/cm2. Baseline: BMD 0.864 g/cm2. AP SPINE L1-L4: Current: BMD 1.053 g/cm2, Z-score -1.6, T-score -1.1, osteopenia, 8.3% increase from previous, 7.6% decrease from baseline (<5% change is not significant). Prior: BMD 0.972 g/cm2. Baseline: BMD 1.139 g/cm2. IDENTIFIED RISK FACTORS: Early menopause, glucocorticoids (chronic), height loss, history of fracture (adult), low calcium intake, recurrent falls, rheumatoid arthritis, secondary osteoporosis (type 1 diabetes). HISTORY OF FRACTURE: None listed. MEDICATIONS: Vitamin D. MM/XR DEXA axial skeleton IMPRESSION: 1. DIAGNOSIS: Osteoporosis based on the lowest T-score value of -2.9 in the femoral neck applying World Health Organization criteria. 2. 10-YEAR FRACTURE RISK PREDICTION, FRAX: According to the guidelines, FRAX calculation should only be performed on patients in the osteopenia bone density category. Therefore, FRAX was not performed on this patient. 3. Treatment Recommendations: NOF guidelines recommend consideration for treatment in postmenopausal women and men age 50 and older presenting with the following: -A hip or vertebral (clinical or morphometric) fracture. -T-score less than or equal to -2.5 at the femoral neck or spine after appropriate evaluation to exclude secondary causes. -Low bone mass at the hip or spine and a 10-year fracture probability by FRAX of greater than or equal to 3% for hip fracture or greater than or equal to 20% for major osteoporotic fracture based on the [place] adapted WHO algorithm. 4. Other Recommendations: All treatment decisions require clinical judgment and consideration of individual patient factors, including patient preferences, comorbidities, previous drug use, risk factors not captured in the FRAX model (e.g. frailty, falls, vitamin D deficiency, increased bone turnover, interval significant decline in bone density) and possible under or overestimation of fracture risk by FRAX. Additional medical evaluation for secondary cause of low bone mineral density may be appropriate. FUTURE SCAN RECOMMENDATION: People with diagnosed cases of osteoporosis or at high risk for fracture should have regular bone mineral density tests. For patients eligible for Medicare, routine testing is allowed once every 2 years. The testing frequency can be increased to one year for patients who have rapidly progressing disease, those who are receiving or discontinuing medical therapy to restore bone mass, or have additional risk factors.
== END 2023-05-13 09:45 | disposition home or self-care (01) ==
LOC: HO.MAMMO 09:44
PROVIDERS: PCP Family Medicine; Visit Provider Family Medicine
DX: M80.80XS Other osteoporosis with current pathological fracture, unspecified site, sequela (principal); X58.XXXS Exposure to other specified factors, sequela
CPT/HCPCS: 77080

== ENCOUNTER 2023-05-16 09:49 | Outpatient (REF) | payer MEDICAID, SELFPAY ==
[2023-05-16] VITALS (8 sets, daily range): BP systolic 102–156; BP diastolic 64–87; PULSE 77–116; RESP 20–22; TEMP 36.8; O2SAT 94; BMI 37.8
[2023-05-16] MEDS: Immun Glob G(IgG)/Gly/IGA Ov50 200 ML IV ×2 (10:37→12:13)
== END 2023-05-16 09:50 | disposition home or self-care (01) ==
LOC: HO.MDS 09:49
PROVIDERS: Visit Provider Hospitalist
DX: D80.1 Nonfamilial hypogammaglobulinemia (principal)
CPT/HCPCS: 96365; 96366; J1569

== ENCOUNTER 2023-05-18 23:34 | Observation (INO) | payer MEDICAID, SELFPAY ==
--- NOTE | ~2023-05-18 | XR_ITS ---
EXAMINATION: XR CHEST CLINICAL INFORMATION: Shortness of breath COMPARISON: 05/03/2023 TECHNIQUE: Frontal view of the chest was obtained. FINDINGS: Lung volumes are symmetric. No focal consolidation is seen. No evidence of pneumothorax, significant pleural effusion, or overt pulmonary edema. Cardiac silhouette remains prominent. Calcification is present at the aortic arch. Multiple chronic appearing bilateral rib deformities again noted. XR/XR chest 1V IMPRESSION: No acute pulmonary findings. Cardiac silhouette remains prominent.
--- NOTE | ~2023-05-18 | CT_ITS ---
EXAMINATION: CT HEAD WITHOUT CONTRAST CLINICAL INFORMATION: Headache. COMPARISON: CT head from 06/28/2022. TECHNIQUE: Contiguous axial imaging was performed from the skull base to vertex without intravenous administration of contrast. This CT examination was performed using dose optimization techniques as appropriate, variously including the following: *Automated exposure control. *Adjustment of mA and/or kV according to patient size (this includes techniques or standardized protocols for targeted exams where dose is matched to indication/reason for exam; i.e. extremities or head). *Use of iterative reconstruction technique. DLP: 727 mGy-cm FINDINGS: There is no evidence of acute intracranial hemorrhage or edematous territorial infarction. Tai-white matter differentiation is preserved. Few nonspecific scattered foci of hypoattenuation in the periventricular and deep white matter most commonly seen with mild microangiopathy. The ventricles are normal in morphology and size. No evidence for obstructive hydrocephalus. No abnormal mass effect or midline shift. No extra-axial fluid collections. No acute soft tissue or osseous abnormalities. Mild mucosal thickening of the paranasal sinuses. The mastoid air cells and middle ear cavities are clear. Extensive odontogenic enamel erosions and periapical lucencies. Bilateral lens extractions. CT/CT head/brain wo IV con IMPRESSION: 1. No evidence of acute intracranial hemorrhage or edematous territorial infarction. 2. Mild nonspecific white matter changes, slightly seen with underlying microangiopathy. 3. Extensive odontogenic disease.
--- NOTE | ~2023-05-18 | US_ITS ---
EXAMINATION: US VENOUS ULTRASOUND WITH DOPPLER LOWER EXTREMITY, RIGHT CLINICAL INFORMATION: Rule out DVT COMPARISON: 02/27/2023 TECHNIQUE: Ultrasound of the deep veins is performed from the hip to the calf with compression sonography and color and pulse Doppler assessment. Spectral analysis with color-flow imaging is performed. FINDINGS: There is normal venous compression and respiratory variation and augmented flow. The visualized common femoral vein, superficial femoral vein, profunda femoral vein, popliteal vein, and the trifurcation region shows no evidence of deep venous thrombosis There is no significant popliteal fossa cyst. Subcutaneous edema noted in the lower leg. If the patient's symptoms persist, followup ultrasound in 5 days 7 days might be of value to exclude proximal propagation from a non-visualized calf vein. US/US venous duplex LE RT IMPRESSION: No DVT demonstrated in the right lower extremity.
[2023-05-19] VITALS (19 sets, daily range): BP systolic 129–162; BP diastolic 62–88; PULSE 2–121; RESP 15–28; TEMP 36–37.3; O2SAT 94–100; BMI 34.3
--- NOTE | 2023-05-19 00:08 | ECG_ITS ---
Test Reason : DYSPNEA Blood Pressure : / mmHG Vent. Rate : 094 BPM Atrial Rate : 094 BPM P-R Int : 142 ms QRS Dur : 102 ms QT Int : 382 ms P-R-T Axes : 051 016 037 degrees QTc Int : 477 ms Sinus rhythm with Premature supraventricular complexes Otherwise normal ECG When compared with ECG of 03-MAY-2023 17:00, Premature supraventricular complexes are now Present Referred By: Lidia Green Electronically Signed By:Harris Phillips
--- NOTE | 2023-05-19 00:13 | ED_ITS ---
HPI - SOB/Dyspnea General Chief Complaint: Dyspnea Stated Complaint: sob Time Seen by Provider: 05/19/23 00:01 Source: patient and EMS Mode of arrival: EMS Limitations: no limitations History of Present Illness HPI Narrative: 53-year-old female with history of chronic hypoxic hypercapnic respiratory failure due to COPD/asthma overlap syndrome and sleep apnea used to L of supplemental oxygen 07/10 and on nocturnal BiPAP, insulin-dependent diabetes, essential hypertension, mixed hyperlipidemia on methadone, mood disorder who presented to the emergency department for headache started about 4 hours ago no nausea, no vomiting, no photophobia, no neck stiffness patient did not try any medicine for the headache. Patient also is complaining of difficulty breathing that started x1 day despite using her home medication. Patient is complaining of right lower extremity swelling. Otherwise no fever, chills, or flu-like symptoms. Related Data Home Medications Medication Instructions Recorded Confirmed loratadine 10 mg tablet (Claritin) 10 mg PO DAILY 12/30/19 05/04/23 montelukast 10 mg tablet 10 mg PO BEDTIME 12/30/19 05/04/23 diltiazem HCl 360 mg capsule,24 360 mg PO DAILY 11/16/20 05/04/23 hr,extended release (Tiadylt ER) roflumilast 500 mcg tablet 500 mcg PO DAILY 11/16/20 05/04/23 (Daliresp) rosuvastatin 5 mg tablet 5 mg PO BEDTIME 11/16/20 05/04/23 metformin 500 mg tablet,extended 500 mg PO BID 05/18/21 05/04/23 release 24 hr methadone 10 mg/mL oral concentrate 50 mg PO DAILY 06/06/21 05/03/23 hydralazine 25 mg tablet 25 mg PO TIDWM 11/02/21 05/04/23 insulin lispro 100 unit/mL 4 unit subcut TIDAC 11/02/21 05/04/23 subcutaneous solution clonazepam 1 mg tablet 1 mg PO BID PRN Anxiety 06/28/22 05/04/23 lamotrigine 150 mg tablet 150 mg PO BID 07/29/22 05/04/23 calcitonin (salmon) 200 1 spray intranasal DAILY 09/30/22 05/04/23 unit/actuation nasal spray cholecalciferol (vitamin D3) 1,250 1,250 mcg PO QWEEK 09/30/22 05/04/23 mcg (50,000 unit) capsule insulin glargine 100 unit/mL 45 unit subcut BEDTIME 09/30/22 05/04/23 subcutaneous solution (Lantus U-100 Insulin) docusate sodium 100 mg capsule 100 mg PO BID PRN constipation 10/20/22 05/04/23 nebulizers 11/08/22 04/08/23 polyethylene glycol 3350 17 17 g PO DAILY constipation 12/21/22 05/04/23 gram/dose oral powder (Miralax) ammonium lactate 12 % lotion 1 appl topical DAILY PRN Rash 02/02/23 05/04/23 azathioprine 50 mg tablet 50 mg PO DAILY 02/21/23 05/04/23 biotin 10 mg tablet 10 mg DAILY 04/08/23 05/04/23 sulfamethoxazole 400 1 tab DAILY 04/08/23 05/04/23 mg-trimethoprim 80 mg tablet diclofenac sodium 1 % topical gel 4 g topical QID PRN Pain 05/04/23 05/04/23 zolpidem 5 mg tablet 5 mg PO BEDTIME PRN Sleep 05/04/23 05/04/23 Previous Rx's Medication Instructions Recorded ipratropium 0.5 mg-albuterol 3 mg 3 ml PO Q4H PRN for wheezing #540 09/02/22 (2.5 mg base)/3 mL nebulization mL soln folic acid 1 mg tablet 1 mg PO DAILY 30 days #30 tabs 12/19/22 gabapentin 300 mg capsule 300 mg PO BID #60 caps 01/14/23 albuterol sulfate 90 mcg/actuation 2 puff inhalation Q4H PRN 02/19/23 aerosol inhaler (ProAir HFA) Shortness Of Breath Or Wheezing #1 ea arformoterol 15 mcg/2 mL solution 2 ml inhalation Q12H 30 days #120 02/20/23 for nebulization (Brovana) mL budesonide 0.5 mg/2 mL suspension 0.5 mg (2 mL) inhalation BID #120 02/20/23 for nebulization mL compress.stocking,knee,reg,med #2 ea 02/20/23 tiotropium bromide 18 mcg capsule 1 cap inhalation DAILY #30 ea 02/20/23 with inhalation device (Spiriva with HandiHaler) omeprazole 40 mg capsule,delayed 40 mg PO DAILY@0630 30 days #30 03/31/23 release caps furosemide 20 mg tablet 40 mg (2 x 20 mg) PO DAILY 90 days 05/06/23 #180 tabs prednisone 10 mg tablet 30 mg (3 x 10 mg) PO DAILY 30 days 05/12/23 #90 tabs Allergies Allergy/AdvReac Type Severity Reaction Status Date / Time No Known Allergies Allergy Verified 05/03/23 16:24 [No Known Allergies*] Review of Systems 2 Review of Systems: All other systems are reviewed and are negative Constitutional: Reports as per HPI and Reports no additional constitutional complaints Eyes: Reports as per HPI and Reports no additional eye complaints Reports system reviewed and no additional complaints, except as documented Cardiovascular: Reports as per HPI and Reports no additional cardiovascular complaints Respiratory: Reports as per HPI and Reports no additional respiratory complaints Gastrointestinal: Reports as per HPI and Reports no additional gastrointestinal complaints Genitourinary: Reports no additional female genitourinary complaints Musculoskeletal: Reports no additional musculoskeletal complaints Skin/Breast: Reports system reviewed and no additional complaints, except as docu Psychiatric: Reports no additional psychiatric complaints Endocrine: Reports no additional endocrine complaints Hematologic/Lymphatic: Reports no additional hematologic/lymphatic complaints Allergic/Immunologic: Reports no additional allergic/immunologic complaints Reports system reviewed and no additional complaints, except as documented and Reports Abnormal speech present [facility] Past Medical History Medical History COPD exacerbation Respiratory failure Acute and chronic respiratory failure with hypercapnia Type 2 diabetes mellitus Opioid dependence Left leg swelling COPD (chronic obstructive pulmonary disease) Chronic lung disease Constipation Asthma with exacerbation Hypercapnic respiratory failure Salmonella gastroenteritis Pleuritic chest pain CHITO (obstructive sleep apnea) Cor pulmonale Obesity with alveolar hypoventilation Aspiration into airway Congestive heart failure Bacteremia Morbid obesity Chronic constipation Cellulitis COPD mixed type Leukocytosis Pulmonary congestion Vomiting Acute respiratory failure Status asthmaticus with COPD (chronic obstructive pulmonary disease) Hypertensive cardiovascular disease Morbid obesity Rib fractures Pulmonary nodule Abnormal chest x-ray Limb swelling Abdominal pain Diabetes mellitus Chronic respiratory failure Poor dentition Tobacco abuse Asthma-COPD overlap syndrome Hyperlipidemia, unspecified Essential hypertension Type 2 diabetes mellitus with unspecified complications Chronic respiratory failure Hypogammaglobulinemia Surgical History H/O tubal ligation Family History Family History Father Diabetes Other Asthma Social History Social History Household Members: Children Household Members Other:: daughter Housing: Apartment Do you presently have visiting nurse or other home services: Yes Unable to assess alcohol history related to: Unknown Alcohol intake: former Comment: patient refusing bed alarm Patient Tobacco Use Status: Former Tobacco user Quit Date: February 2022 Tobacco use type: Cigarette Cigarettes Per Day: 1 Years Smoked: 35 Smoked in Last 30 Days: No e-Cigarette/Vaping Use: Currently Using Second Hand Smoke Exposure: No Use of substances other than those prescribed or required for medical reasons: No Substance Use Type: Opiates Advance Directives: Yes Advance Directives on File: Yes Advance Directives Date on File: 06/12/21 Patient : No service: No Current occupational status: unemployed and disabled Physical Exam 2 Vital Signs: Vital Signs: Last Vital Signs Pulse 99 05/19/23 02:22 Resp 16 05/19/23 03:59 BP 141/79 H 05/19/23 02:22 Pulse Ox 97 05/19/23 02:22 O2 Del Method BiPAP 05/19/23 02:22 Oxygen Flow Rate 2.5 05/19/23 00:03 BMI result Body Mass Index 34.3 Vital signs have been reviewed and appear to be correct. Blood pressure elevated. Heart rate normal. Respiratory rate normal. Temperature normal. Oxygen saturation normal. Appearance: Alert. Oriented X3. No acute distress. Head: Normal external exam. Normocephalic. Atraumatic. No Coffman signs noted. No raccoon eyes noted Eyes: PERRLA. EOMI. Conjunctiva and sclera normal. Eyelids normal. ENT: TM's Normal. Pharynx normal. Uvula midline. Moist mucous membranes. No trismus noted. No drooling noted. No muffled voice noted. Neck: Normal inspection. Neck supple. FROM. No adenopathy. Thyroid Normal. No meningeal signs. No neck mass noted. CVS: Normal heart rate and rhythm. Heart sound normal. No murmurs noted. Pulses normal throughout. Respiratory: No respiratory distress. Painless inspiration. Breath sounds normal. Diffuse bilateral expiratory wheezing with prolonged expiration. Chest nontender. No accessory muscle usage noted or decreased air movement noted. Abdomen: Soft and nontender. Bowel sounds normal in all 4 quadrants. No distention noted. No organomegaly noted. No visible injury noted. Back: No CVA tenderness. Full range of motion noted. Skin: Skin warm and dry. Normal skin color. Normal skin turgor. No rashes/lesions/lacerations noted. Extremities: No lower extremity edema. Extremities exhibit normal range of motion. Extremities nontender. Neuro: Oriented X 3. Cranial nerve exam: II-XII are grossly intact No motor deficit. No sensory deficit. Reflexes normal. Course Reevaluation(s) Reevaluation #1: COPD exacerbation patient started to feel improved after given Solu-Medrol and continuous bronchodilator, patient was placed on BiPAP machine that she normally use at home on the nighttime. Case discussed with Dr. Corral who agreed to admit the patient. Time: 04:29 Medications Administered Discontinued Medications Generic Name Dose Route Start Last Admin Trade Name Freq PRN Reason Stop Dose Admin Albuterol Sulfate 2.5 mg/ 0 mg 05/19/23 00:26 05/19/23 00:29 Albuterol/Ipratropium 3 ml INHALE 05/19/23 00:27 2.5 dose ONCE ONE Administration Magnesium Sulfate 2 gm in 50 mls @ 25 mls/hr 05/19/23 00:12 05/19/23 04:00 Magnesium Sulfate/H2o IV 05/19/23 02:11 Infused ONCE ONE Infusion Methylprednisolone Sodium Succinate 125 mg 05/19/23 00:12 05/19/23 00:42 Methylprednisolone Sod Succ 125 Mg/2 Ml Vial IVPUSH 05/19/23 00:13 125 mg ONCE ONE Administration Medical Decision Making Differential Diagnosis Differential Diagnoses: The differential diagnosis associated with the presentation includes (COPD exacerbation, pneumonia, pneumothorax, pleural effusion, right lower extremity swelling due to DVT, headache due to intracranial bleed, ACS, congestive heart failure, severe anemia.) Admission/Observation Consideration of admission/observation: Escalation of care including admission/observation considered Consult Healthcare Provider Management of the patient was discussed with: Hospitalist (Dr. Corral) Lab Data MDM Lab Attestation statement: I reviewed the patient's lab results. 05/19/23 01:12 05/19/23 01:17 Labs: Lab Results 05/19/23 05/19/23 05/19/23 Range/Units 01:12 01:17 04:09 WBC 12.0 H (4.8-10.8) X10*3/uL RBC 3.70 L (4.20-5.50) X10*6/uL Hgb 11.6 L (12.0-16.0) g/dl Hct 37.2 (37.0-47.0) % MCV 100.5 H (80.0-98.0) fL MCH 31.4 (27.0-33.0) pg MCHC 31.2 (31.0-35.0) g/dl RDW 13.9 (11.0-16.0) % Plt Count 252 (160-400) X10*3/uL MPV 8.8 L (9.4-12.3) fL Immature Gran % (Auto) 0.8 H (0.0-0.4) % Neut % (Auto) 84.3 H (45-73) % Lymph % (Auto) 10.2 L (20-40) % [place] % (Auto) 4.3 (2-11) % Eos % (Auto) 0.2 (0-4) % Baso % (Auto) 0.2 (0-2) % Lymph # (Auto) 1.2 (1.2-4.9) X10*3/uL [place] # (Auto) 0.5 (0.1-1.2) X10*3/uL Eos # (Auto) 0.0 (0.0-0.4) X10*3/uL Baso # (Auto) 0.0 (0.0-0.2) X10*3/uL Abs Immat Gran (auto) 0.09 H (0.00-0.03) X10*3/uL Absolute Neuts (auto) 10.1 H (2.0-8.3) x10*3/uL Absolute Nucleated RBC 0.000 (0.0-0.012) X10*3/uL Nucleated RBC % (auto) 0.0 (0.0-0.2) /100WBC VBG pH 7.43 (7.32-7.43) VBG pCO2 70 mmHg VBG pO2 98 mmHg VBG HCO3 47 H (22-26) mmol/L VBG O2 Saturation 99.0 % VBG Base Excess 19.2 mmol/L Sodium 142 (135-145) mmol/L Potassium 4.3 (3.3-5.1) mmol/L Chloride 96 (96-108) mmol/L Carbon Dioxide 38 H (22-29) mmol/L Anion Gap 12 (12-20) BUN 19 H (9-16) mg/dL Creatinine 0.66 (0.5-1.4) mg/dL Estim Creat Clear Calc 107.5 Estimated GFR > 60 Random Glucose 123 H (60-115) mg/dL Calcium 10.6 H (8.4-10.2) mg/dL Total Bilirubin 0.2 (0.0-1.0) mg/dL Direct Bilirubin < 0.2 (0.0-0.5) mg/dL AST 22 (5-31) U/L ALT 24 (0-31) U/L Alkaline Phosphatase 44 (39-117) U/L Troponin I High Sens 14.3 (<3.5-17.0) ng/L B-Natriuretic Peptide 40 (<100) pg/mL Total Protein 7.5 (6.5-8.0) g/dL Albumin 3.9 (3.5-5.0) g/dL Lipase 16 (8-78) U/L Influenza Type A (PCR) NEGATIVE (Negative) Influenza Type B (PCR) NEGATIVE (Negative) RSV RNA Qual (PCR) NEGATIVE (Negative) SARS-CoV-2 RNA (RT-PCR) NEGATIVE (Negative) Independent Interpretation I performed an independent interpretation of an: EKG (Normal sinus rhythm at 94 beats per minute, normal intervals, nonspecific T-wave change in the inferior leads.), Plain X-Ray (No acute pulmonary findings. Cardiac silhouette remains prominent.), Ultrasound (No DVT demonstrated in the right lower extremity.) and CT Scan (Head:1. No evidence of acute intracranial hemorrhage or edematous territorial infarction. 2. Mild nonspecific white matter changes, slightly seen with underlying microangiopathy. 3. Extensive odontogenic disease. ) Radiology Impression Discussion of test interpretation with radiology: I have reviewed the radiologist's reading. Chronic Conditions Patient?s care impacted by: Other (COPD ) Discharge Plan Discharge Clinical Impression: Acute exacerbation of chronic obstructive airways disease Patient Disposition: Admitted As Inpatient Prescriptions: No Action ipratropium-albuterol 0.5 mg-3 mg(2.5 mg base)/3 mL solution for nebulization 3 ml PO Q4H PRN (Reason: for wheezing) Qty: 540 6RF gabapentin 300 mg capsule 300 mg PO BID Qty: 60 11RF albuterol sulfate [ProAir HFA] 90 mcg/actuation HFA aerosol inhaler 2 puff inhalation Q4H PRN (Reason: Shortness Of Breath Or Wheezing) Qty: 1 0RF omeprazole 40 mg capsule,delayed release(DR/EC) 40 mg PO DAILY@0630 30 Days Qty: 30 6RF furosemide 20 mg tablet 40 mg PO DAILY 90 Days Qty: 180 0RF prednisone 10 mg tablet 30 mg PO DAILY 30 Days Qty: 90 3RF diltiazem HCl [Tiadylt ER] 360 mg capsule,extended release 24 hr 360 mg PO DAILY rosuvastatin 5 mg tablet 5 mg PO BEDTIME roflumilast [Daliresp] 500 mcg tablet 500 mcg PO DAILY metformin 500 mg tablet extended release 24 hr 500 mg PO BID hydralazine 25 mg tablet 25 mg PO TIDWM insulin lispro 100 unit/mL solution 4 unit subcut TIDAC methadone 10 mg/mL Concentrate 50 mg PO DAILY Patient Comments: [facility] lamotrigine 150 mg tablet 150 mg PO BID cholecalciferol (vitamin D3) 1,250 mcg (50,000 unit) capsule 1,250 mcg PO QWEEK calcitonin (salmon) 200 unit/actuation spray,non-aerosol 1 spray intranasal DAILY Rx Instructions: one nostril every day, alternate sides. insulin glargine [Lantus U-100 Insulin] 100 unit/mL solution 45 unit subcut BEDTIME docusate sodium 100 mg capsule 100 mg PO BID PRN (Reason: constipation) azathioprine 50 mg Tablet 50 mg PO DAILY clonazepam 1 mg tablet 1 mg PO BID PRN (Reason: Anxiety) polyethylene glycol 3350 [Miralax] 17 gram/dose powder 17 g PO DAILY ammonium lactate 12 % lotion 1 appl topical DAILY PRN (Reason: Rash) biotin 10 mg tablet 10 mg DAILY sulfamethoxazole-trimethoprim 400-80 mg tablet 1 tab DAILY zolpidem 5 mg tablet 5 mg PO BEDTIME PRN (Reason: Sleep) Rx Instructions: use with 100% BIPAP compliance only diclofenac sodium 1 % gel 4 g TOPICAL QID PRN (Reason: Pain) montelukast 10 mg tablet 10 mg PO BEDTIME loratadine [Claritin] 10 mg tablet 10 mg PO DAILY (DME) compress.stocking,knee,reg,med Misc See Rx Instructions .Route Qty: 2 0RF Rx Instructions: 15-20 cm arformoterol [Brovana] 15 mcg/2 mL solution for nebulization 2 ml inhalation Q12H 30 Days Qty: 120 11RF budesonide 0.5 mg/2 mL suspension for nebulization 0.5 mg inhalation BID Qty: 120 11RF tiotropium bromide [Spiriva with HandiHaler] 18 mcg capsule, w/inhalation device 1 cap inhalation DAILY Qty: 30 11RF (DME) nebulizers Misc See Rx Instructions .ROUTE Rx Instructions: As directed folic acid 1 mg tablet 1 mg PO DAILY 30 Days Qty: 30 6RF
[2023-05-19] MEDS: Albuterol Sulfate 2.5 MG, Albuterol/Iprat 2.5/0.5MG 3 ML 3 ML INHALE (00:29)
[2023-05-19] MEDS: Magnesium Sulfate/H2O 2 GM/50 ML PIGGYBACK IV (00:42)
[2023-05-19] MEDS: methylPREDNISolone Sod Succ 125 MG/2 ML VIAL IVPUSH (00:42)
[2023-05-19 01:18] LABS: MANUAL DIFF FLAG NO
[2023-05-19 01:19] LABS: Basophils Percent Auto 0.2 % (0-2); Eosinophils Percent Auto 0.2 % (0-4); Hematocrit 37.2 % (37.0-47.0); Hemoglobin 11.6 g/dl (12.0-16.0); Imm Gran Abs Auto 0.09 X10*3/uL (0.00-0.03); Imm Gran Pct Auto 0.8 % (0.0-0.4); Lymphocytes Absolute Auto 1.2 X10*3/uL (1.2-4.9); Lymphocytes Percent Auto 10.2 % (20-40); Mean Corpuscular HGB Conc 31.2 g/dl (31.0-35.0); Mean Corpuscular Hemoglobin 31.4 pg (27.0-33.0); Mean Corpuscular Volume 100.5 fL (80.0-98.0); Mean Platelet Volume 8.8 fL (9.4-12.3); Monocytes Absolute Auto 0.5 X10*3/uL (0.1-1.2); Monocytes Percent Auto 4.3 % (2-11); Neutrophils Absolute Auto 10.1 x10*3/uL (2.0-8.3); Neutrophils Percent Auto 84.3 % (45-73); Platelet Count 252 X10*3/uL (160-400); Red Cell Distribution Width 13.9 % (11.0-16.0)
[2023-05-19 01:37] LABS: B Type Natriuretic Peptide 40 pg/mL (<100)
[2023-05-19 01:39] LABS: Alanine Aminotransferase 24 U/L (0-31); Albumin Level 3.9 g/dL (3.5-5.0); Alkaline Phosphatase 44 U/L (39-117); Anion Gap 12 (12-20); Aspartate Amino Transferase 22 U/L (5-31); Bilirubin Direct < 0.2 mg/dL (0.0-0.5); Bilirubin Total 0.2 mg/dL (0.0-1.0); Blood Urea Nitrogen 19 mg/dL (9-16); Calcium 10.6 mg/dL (8.4-10.2); Carbon Dioxide 38 mmol/L (22-29); Chloride 96 mmol/L (96-108); Creatinine Clr Calc Pharmacy 107.5; Estimated Glomerular Filt Rate > 60; Glucose Random 123 mg/dL (60-115); Lipase 16 U/L (8-78); Potassium 4.3 mmol/L (3.3-5.1); Sodium 142 mmol/L (135-145); Total Protein 7.5 g/dL (6.5-8.0)
[2023-05-19 01:44] LABS: Troponin-I High Sensitivity 14.3 ng/L (<3.5-17.0)
[2023-05-19 01:58] LABS: Influenza A PCR NEGATIVE (Negative); Influenza B PCR NEGATIVE (Negative); Resp Syncy Virus RNA Qual PCR NEGATIVE (Negative); SARS COV2 PCR INHOUSE NEGATIVE (Negative)
--- NOTE | 2023-05-19 02:28 | PC.NURSE ---
Pt aox4 resting at the bedside. On bipap 18/5, 28% o2, 98% o2sat. NSR on monitor. Abd hard distended and nontender, at baseline. Sking warm pink and dry. Bilateral lower leg edema noted. U/S done, results pending. VSS. No apparent distress noted. Reports no pain. Monitoring is ongoing.
[2023-05-19 04:17] LABS: VBG Base Excess 19.2 mmol/L; VBG HCO3 47 mmol/L (22-26); VBG pCO2 70 mmHg; VBG pH 7.43 (7.32-7.43); VBG pO2 98 mmHg
[2023-05-19 04:26] LABS: Venous Blood Gas Refer to POC result
--- NOTE | 2023-05-19 05:13 | PC.NURSE ---
Pt sleeping at the bedside on bipap, 18/6 @ 28% o2. NSR on monitor with HR 92. Skin warm pink and dry. Pending admit orders.
--- NOTE | 2023-05-19 05:30 | P.HPHOSP_ITS ---
History of Present Illness Date of Service: 05/19/23 Chief Complaint: Dyspnea This is a 53-year-old female with pertinent history of chronic hypoxemic hypercapnic respiratory failure due to asthma-COPD overlap syndrome/OHS on 2 L baseline supplemental oxygen and nocturnal BiPAP, insulin-dependent diabetes mellitus, essential hypertension, mixed hyperlipidemia, opioid dependence on methadone, mood disorder who presents to the emergency department for evaluation of dyspnea. Patient states her symptoms started one day prior to presentation. She started having dyspnea which is worse with exertion. It was associated with wheezing. No relief with home O2 or home inhalers. Her symptoms have progressed over the last 24-48 hours. Patient denies chest pain, palpitations or cough. No fever, chills, abdominal pain, changes in urinary or bowel habits. No sick contacts. No orthopnea or PND In the emergency department, patient with wheezing despite multiple DuoNeb treatments. Review of Systems 2 Constitutional: Constitutional: Reports no additional constitutional complaints Cardiovascular: Cardiovascular: Reports no additional cardiovascular complaints and Reports dyspnea on exertion Respiratory: Respiratory: Reports dyspnea on exertion and Reports wheezing Gastrointestinal: Gastrointestinal: Reports no additional gastrointestinal complaints Genitourinary: Genitourinary: Reports no additional female genitourinary complaints Allergic/Immunologic: Allergic/Immunologic: Reports wheezing [facility] Medical History COPD exacerbation Respiratory failure Acute and chronic respiratory failure with hypercapnia Type 2 diabetes mellitus Opioid dependence Left leg swelling COPD (chronic obstructive pulmonary disease) Chronic lung disease Constipation Asthma with exacerbation Hypercapnic respiratory failure Salmonella gastroenteritis Pleuritic chest pain CHITO (obstructive sleep apnea) Cor pulmonale Obesity with alveolar hypoventilation Aspiration into airway Congestive heart failure Bacteremia Morbid obesity Chronic constipation Cellulitis COPD mixed type Leukocytosis Pulmonary congestion Vomiting Acute respiratory failure Status asthmaticus with COPD (chronic obstructive pulmonary disease) Hypertensive cardiovascular disease Morbid obesity Rib fractures Pulmonary nodule Abnormal chest x-ray Limb swelling Abdominal pain Diabetes mellitus Chronic respiratory failure Poor dentition Tobacco abuse Asthma-COPD overlap syndrome Hyperlipidemia, unspecified Essential hypertension Type 2 diabetes mellitus with unspecified complications Chronic respiratory failure Hypogammaglobulinemia Family History Father Diabetes Other Asthma Surgical History H/O tubal ligation Social History Household Members: Children Household Members Other:: daughter Housing: Apartment Do you presently have visiting nurse or other home services: Yes Unable to assess alcohol history related to: Unknown Alcohol intake: former Comment: patient refusing bed alarm Patient Tobacco Use Status: Former Tobacco user Quit Date: February 2022 Tobacco use type: Cigarette Cigarettes Per Day: 1 Years Smoked: 35 Smoked in Last 30 Days: No e-Cigarette/Vaping Use: Currently Using Second Hand Smoke Exposure: No Use of substances other than those prescribed or required for medical reasons: No Substance Use Type: Opiates Advance Directives: Yes Advance Directives on File: Yes Advance Directives Date on File: 06/12/21 Patient : No service: No Current occupational status: unemployed and disabled Meds Allergies Allergy/AdvReac Type Severity Reaction Status Date / Time No Known Allergies Allergy Verified 05/03/23 16:24 [No Known Allergies*] Active Medications: Current Medications Acetaminophen (Acetaminophen 325 Mg Tablet) 650 mg PO Q6H PRN PRN Reason: Pain, Mild (Pain Scale 1-3) Enoxaparin Sodium (Enoxaparin Sodium 40 Mg/0.4 Ml Syringe) 40 mg SUBCUT Q24H ANA Glucose (Glucose Gel 15 Gm Gel..Gram.) 15 gm PO Q15M PRN; Protocol PRN Reason: per Hypoglycemia Standing Ord. Insulin Human Lispro (Insulin Lispro 100 Unit/Ml 3 Ml Vial) 0 unit SUBCUT QIDACHS [facility]; Protocol Melatonin (Melatonin 3 Mg Tablet) 6 mg PO BEDTIME PRN PRN Reason: Insomnia Ondansetron HCl (Ondansetron Hcl 4 Mg/2 Ml Vial) 4 mg IVPUSH Q8H PRN PRN Reason: Nausea and Vomiting Sodium Chloride (0.9 % Sodium Chloride Flush 3 Ml Syringe) 3 ml IVFLUSH [facility] Home Medications Medication Instructions Recorded Confirmed Last Taken Type loratadine 10 mg tablet (Claritin) 10 mg PO DAILY 12/30/19 05/04/23 02/20/23 History montelukast 10 mg tablet 10 mg PO BEDTIME 12/30/19 05/04/23 02/20/23 History diltiazem HCl 360 mg capsule,24 360 mg PO DAILY 11/16/20 05/04/2302/20/23 History hr,extended release (Tiadylt ER) roflumilast 500 mcg tablet 500 mcg PO DAILY 11/16/20 05/04/23 02/20/23 History (Daliresp) rosuvastatin 5 mg tablet 5 mg PO BEDTIME 11/16/20 05/04/23 02/20/23 History metformin 500 mg tablet,extended 500 mg PO BID 05/18/21 05/04/23 02/20/23 History release 24 hr methadone 10 mg/mL oral concentrate 50 mg PO DAILY 06/06/21 05/03/23 04/07/23 History hydralazine 25 mg tablet 25 mg PO TIDWM 11/02/21 05/04/23 02/20/23 History insulin lispro 100 unit/mL 4 unit subcut TIDAC 11/02/21 05/04/23 02/02/23 09:00 History subcutaneous solution clonazepam 1 mg tablet 1 mg PO BID PRN Anxiety 06/28/22 05/04/23 Unknown History lamotrigine 150 mg tablet 150 mg PO BID 07/29/22 05/04/23 02/20/23 History calcitonin (salmon) 200 1 spray intranasal DAILY 09/30/22 05/04/23 02/20/23 History unit/actuation nasal spray cholecalciferol (vitamin D3) 1,250 1,250 mcg PO QWEEK 09/30/22 05/04/23 02/19/23 History mcg (50,000 unit) capsule insulin glargine 100 unit/mL 45 unit subcut BEDTIME 09/30/22 05/04/23 02/02/23 09:00 History subcutaneous solution (Lantus U-100 Insulin) docusate sodium 100 mg capsule 100 mg PO BID PRN constipation 10/20/22 05/04/23 Unknown History nebulizers 11/08/22 04/08/23 02/02/23 09:00 History polyethylene glycol 3350 17 17 g PO DAILY constipation 12/21/22 05/04/23 02/20/23 History gram/dose oral powder (Miralax) ammonium lactate 12 % lotion 1 appl topical DAILY PRN Rash 02/02/23 05/04/23 Unknown History azathioprine 50 mg tablet 50 mg PO DAILY 02/21/23 05/04/23 02/20/23 History biotin 10 mg tablet 10 mg DAILY 04/08/23 05/04/23 Unknown History sulfamethoxazole 400 1 tab DAILY 04/08/23 05/04/23 Unknown History mg-trimethoprim 80 mg tablet diclofenac sodium 1 % topical gel 4 g topical QID PRN Pain 05/04/23 05/04/23 Unknown History zolpidem 5 mg tablet 5 mg PO BEDTIME PRN Sleep 05/04/23 05/04/23 Unknown History Physical Exam 2 Vital Signs and Narrative: Vital Signs: Last Vital Signs Pulse 87 05/19/23 05:11 Resp 15 05/19/23 05:11 BP 162/88 H 05/19/23 05:11 Pulse Ox 96 05/19/23 05:11 O2 Del Method BiPAP 05/19/23 05:11 Oxygen Flow Rate 2.5 05/19/23 00:03 BMI result Body Mass Index 34.3 Middle-aged female lying in bed in mild distress on BiPAP Neck supple, no JVD Regular rate and rhythm, S1-S2 heard Bilateral wheezing without crackles Abdomen soft nontender, no guarding, no rigidity Patient is awake, alert and oriented to self, place, time and person ; no focal motor deficit Psych: Normal mood No pedal edema Results Labs 05/19/23 01:12 05/19/23 01:17 Labs: Laboratory Results - last 24 hr 05/19/23 05/19/23 05/19/23 01:12 01:17 04:09 MCV 100.5 H MCH 31.4 MCHC 31.2 RDW 13.9 Plt Count 252 MPV 8.8 L Immature Gran % (Auto) 0.8 H Neut % (Auto) 84.3 H Lymph % (Auto) 10.2 L [place] % (Auto) 4.3 Eos % (Auto) 0.2 Baso % (Auto) 0.2 Lymph # (Auto) 1.2 [place] # (Auto) 0.5 Eos # (Auto) 0.0 Baso # (Auto) 0.0 Abs Immat Gran (auto) 0.09 H Absolute Neuts (auto) 10.1 H Absolute Nucleated RBC 0.000 Nucleated RBC % (auto) 0.0 VBG pH 7.43 VBG pCO2 70 VBG pO2 98 VBG HCO3 47 H VBG O2 Saturation 99.0 VBG Base Excess 19.2 Anion Gap 12 Estim Creat Clear Calc 107.5 Estimated GFR > 60 Random Glucose 123 H Calcium 10.6 H Total Bilirubin 0.2 Direct Bilirubin < 0.2 AST 22 ALT 24 Alkaline Phosphatase 44 Troponin I High Sens 14.3 B-Natriuretic Peptide 40 Total Protein 7.5 Albumin 3.9 Lipase 16 Influenza Type A (PCR) NEGATIVE Influenza Type B (PCR) NEGATIVE RSV RNA Qual (PCR) NEGATIVE SARS-CoV-2 RNA (RT-PCR) NEGATIVE Imaging Radiologist's Impressions: Impressions Chest X-Ray 05/19/23 00:19 IMPRESSION: No acute pulmonary findings. Cardiac silhouette remains prominent. Head CT 05/19/23 00:25 IMPRESSION: 1. No evidence of acute intracranial hemorrhage or edematous territorial infarction. 2. Mild nonspecific white matter changes, slightly seen with underlying microangiopathy. 3. Extensive odontogenic disease. Venous Duplex 05/19/23 02:10 IMPRESSION: No DVT demonstrated in the right lower extremity. Assessment and Plan (1) Acute exacerbation of chronic obstructive airways disease: Status: Acute Plan This is a 53-year-old female with pertinent history of chronic hypoxemic hypercapnic respiratory failure due to asthma-COPD overlap syndrome/OHS on 2 L baseline supplemental oxygen and nocturnal BiPAP, insulin-dependent diabetes mellitus, essential hypertension, mixed hyperlipidemia, opioid dependence on methadone, mood disorder who presents to the emergency department for evaluation of dyspnea. #. Acute respiratory distress on chronic hypoxemic hypercarbic respiratory failure due to exacerbation of asthma-COPD overlap syndrome: Will admit patient with supplemental oxygen, uses 2 L at baseline. Initiating systemic steroids. Scheduled and p.r.n. DuoNebs. Continue home inhalers. Continue nocturnal BiPAP. #. Insulin-dependent diabetes mellitus with hyperglycemia: Initiating basal plus insulin regimen #. Essential hypertension: Continue home antihypertensives #. Mixed hyperlipidemia: On statin #. Opioid dependence on methadone #. Mood disorder: Continue home mood stabilizers Med rec pending DVT prophylaxis: Lovenox Full code Quality Stroke Does the patient have a stroke diagnosis?: No VTE Prior VTE?: No VTE Risk Level:: Medical - moderate - high VTE Device Contraindication: Treatment Not Indicated VTE Drug Contraindication: N/A - Med Ordered
[2023-05-19] MEDS: Enoxaparin Sodium 40 MG/0.4 ML SYRINGE SUBCUT (07:21)
[2023-05-19] MEDS: Albuterol/Iprat 2.5/0.5MG 3 ML AMPUL.NEB INHALE ×5 (07:26→23:24)
[2023-05-19 07:35] LABS: Glucose, Whole Blood 254 mg/dL (60-115)
[2023-05-19] MEDS: Insulin Lispro 100 UNIT/ML 3 ML VIAL SUBCUT ×4 (07:37→21:36)
--- NOTE | 2023-05-19 07:44 | PC.NURSE ---
assumed care of pt at 0700. pt a&o x4, calm, and cooperative. poc taken and pt medicated per may. breathing treatment complete by RT. pt sitting up in bed eating breakfast. asking about methadone. appears the methadone verification has not been done yet. pt resting resting quietly in no apparent distress. rr even/unlabored. call lu within reach. plan of care ongoing.
--- NOTE | 2023-05-19 07:59 | PC.NURSE ---
report complete. awaiting pt transport to room.
[2023-05-19] MEDS: methylPREDNISolone Sod Succ 40 MG/ML VIAL IVPUSH ×2 (08:27→20:52)
[2023-05-19 09:47] LABS: Glucose, Whole Blood 322 mg/dL (60-115)
--- NOTE | 2023-05-19 10:56 | HO.PM.IMPN ---
Subjective Subjective Date of Service: 05/19/23 Interval History: Admitted with head pressure and shortness of breath worse with exertion. Patient feeling better this morning headache has resolved, shortness of breath has improved but has not returned to baseline , denies recent travel, no new pets, denies allergy symptoms has been compliant with home inhalers steroids and BiPAP. Denies fever, no chills, no nausea, no vomiting, no other acute events since admission. Review of Systems All other system reviewed and negative. Physical Exam Vital Signs: Vital Signs: Last Vital Signs Temp 97.2 F 05/19/23 08:00 Pulse 112 H 05/19/23 08:00 Resp 20 05/19/23 08:00 BP 154/88 H 05/19/23 08:00 Pulse Ox 94 05/19/23 08:00 O2 Del Method Nasal Cannula 05/19/23 08:00 O2 Flow Rate 2 05/19/23 08:00 Oxygen Flow Rate 2.5 05/19/23 00:03 BMI result Body Mass Index 34.3 Const: Other: General: awake alert x3 sitting comfortably in no acute distress Neck no JVD Anicteric sclera Resp: Diminished sounds bilaterally, prolonged expiration, few expiratory wheeze,no crackles CVS: S1,S2,RRR GI: abdomen soft non tender bowel sounds audible Skin: No rash Extremities + edema Neuro: motor grossly intact Psych: appropriate affect Objective Data Active Medications Acetaminophen (Acetaminophen 325 Mg Tablet) 650 mg PO Q6H PRN PRN Reason: Pain, Mild (Pain Scale 1-3) Albuterol/Ipratropium (Albuterol/Iprat 2.5/0.5mg 3 Ml Ampul.Neb) 3 ml INHALE RQ4H WHILE AWAKE [facility] Last Admin: 05/19/23 07:26 Dose: 3 ml Documented By: ROMULO Albuterol/Ipratropium (Albuterol/Iprat 2.5/0.5mg 3 Ml Ampul.Neb) 3 ml INHALE Q4H PRN PRN Reason: Wheezing Dextrose (Dextrose 50 % 25 Gm/50 Ml Syringe) 25 gm IVPUSH Q15M PRN; Protocol PRN Reason: per Hypoglycemia Standing Ord. Enoxaparin Sodium (Enoxaparin Sodium 40 Mg/0.4 Ml Syringe) 40 mg SUBCUT Q24H [facility] Last Admin: 05/19/23 07:21 Dose: 40 mg Documented By: PRIMO Glucose (Glucose Gel 15 Gm Gel..Gram.) 15 gm PO Q15M PRN; Protocol PRN Reason: per Hypoglycemia Standing Ord. Insulin Human Lispro (Insulin Lispro 100 Unit/Ml 3 Ml Vial) 0 unit SUBCUT QIDACHS [facility]; Protocol Last Admin: 05/19/23 07:37 Dose: 6 unit Documented By: PRIMO Melatonin (Melatonin 3 Mg Tablet) 6 mg PO BEDTIME PRN PRN Reason: Insomnia Methylprednisolone Sodium Succinate (Methylprednisolone Sod Succ 40 Mg/Ml Vial) 40 mg IVPUSH Q12H [facility] Last Admin: 05/19/23 08:27 Dose: 40 mg Documented By: PRIMO Ondansetron HCl (Ondansetron Hcl 4 Mg/2 Ml Vial) 4 mg IVPUSH Q8H PRN PRN Reason: Nausea and Vomiting Sodium Chloride (0.9 % Sodium Chloride Flush 3 Ml Syringe) 3 ml IVFLUSH QSHIFT [facility] Last Admin: 05/19/23 07:56 Dose: Not Given Documented By: PRIMO Non-Admin Reason: Med Not Available Labs 05/19/23 01:12 05/19/23 01:17 Labs: Laboratory Results - last 24 hr 05/19/23 05/19/23 05/19/23 01:12 01:17 04:09 MCV 100.5 H MCH 31.4 MCHC 31.2 RDW 13.9 Plt Count 252 MPV 8.8 L Immature Gran % (Auto) 0.8 H Neut % (Auto) 84.3 H Lymph % (Auto) 10.2 L [place] % (Auto) 4.3 Eos % (Auto) 0.2 Baso % (Auto) 0.2 Lymph # (Auto) 1.2 [place] # (Auto) 0.5 Eos # (Auto) 0.0 Baso # (Auto) 0.0 Abs Immat Gran (auto) 0.09 H Absolute Neuts (auto) 10.1 H Absolute Nucleated RBC 0.000 Nucleated RBC % (auto) 0.0 VBG pH 7.43 VBG pCO2 70 VBG pO2 98 VBG HCO3 47 H VBG O2 Saturation 99.0 VBG Base Excess 19.2 Anion Gap 12 Estim Creat Clear Calc 107.5 Estimated GFR > 60 POC Glucose Random Glucose 123 H Calcium 10.6 H Total Bilirubin 0.2 Direct Bilirubin < 0.2 AST 22 ALT 24 Alkaline Phosphatase 44 Troponin I High Sens 14.3 B-Natriuretic Peptide 40 Total Protein 7.5 Albumin 3.9 Lipase 16 Influenza Type A (PCR) NEGATIVE Influenza Type B (PCR) NEGATIVE RSV RNA Qual (PCR) NEGATIVE SARS-CoV-2 RNA (RT-PCR) NEGATIVE 05/19/23 05/19/23 07:24 09:39 MCV MCH MCHC RDW Plt Count MPV Immature Gran % (Auto) Neut % (Auto) Lymph % (Auto) [place] % (Auto) Eos % (Auto) Baso % (Auto) Lymph # (Auto) [place] # (Auto) Eos # (Auto) Baso # (Auto) Abs Immat Gran (auto) Absolute Neuts (auto) Absolute Nucleated RBC Nucleated RBC % (auto) VBG pH VBG pCO2 VBG pO2 VBG HCO3 VBG O2 Saturation VBG Base Excess Anion Gap Estim Creat Clear Calc Estimated GFR POC Glucose 254 H 322 H Random Glucose Calcium Total Bilirubin Direct Bilirubin AST ALT Alkaline Phosphatase Troponin I High Sens B-Natriuretic Peptide Total Protein Albumin Lipase Influenza Type A (PCR) Influenza Type B (PCR) RSV RNA Qual (PCR) SARS-CoV-2 RNA (RT-PCR) Assessment and Plan (1) Acute exacerbation of chronic obstructive airways disease: Status: Acute Plan 53-year-old female with pertinent history of chronic hypoxemic hypercapnic respiratory failure due to asthma-COPD overlap syndrome/OHS on 2 L baseline supplemental oxygen and nocturnal BiPAP, insulin-dependent diabetes mellitus, essential hypertension, mixed hyperlipidemia, opioid dependence on methadone, mood disorder who presents to the emergency department for evaluation of dyspnea. #. Acute on chronic hypoxemic hypercarbic respiratory failure due to exacerbation of asthma-COPD overlap syndrome: Shortness of breath is improving Continue home dose of supplemental oxygen 2 L, stable ABGs ph 7.4, pCO2 70 Continue DuoNeb updraft/IV steroids and continue nocturnal BiPAP Strongly recommend to completely abstain from smoking. Continue home dose of Lasix and acetazolamide. #. Insulin-dependent diabetes mellitus with hyperglycemia: Like clear due to steroids, will Resume Lantus, continue diabetic diet and continue insulin sliding scale #. Essential hypertension: Resume Cardizem is stable blood pressure will hold hydralazine and lisinopril and follow BP closely #. Mixed hyperlipidemia: Continue statin #. Opioid dependence on methadone maintenance dose #. Mood disorder: Continue home mood stabilizers # obesity grade 2 recommend low-calorie diet and weight reduction. DVT prophylaxis: Lovenox Full code Patient need continued inpatient hospitalization for treatment of acute COPD exacerbation requiring IV steroids and close clinical monitoring Quality Stroke Does the patient have a stroke diagnosis?: No VTE Prior VTE?: No VTE Risk Level:: Medical - moderate - high VTE Device Contraindication: Treatment Not Indicated VTE Drug Contraindication: N/A - Med Ordered
--- NOTE | 2023-05-19 11:39 | PHA.MEDREC ---
Pharmacy Consult ? Medication Reconciliation Pharmacy has completed the medication reconciliation. Spoke to patient and confirmed medication list. Patient said she's not taking azathioprine right now because she is taking doxycyline, she takes vitamin D3 2X/week, and only metformin once a day.
--- NOTE | 2023-05-19 11:47 | HE.PHANOTE ---
RE: METHADONE DOSING Last dose of 50 mg (provided by [facility] daily) was on 05/18/2023 per Dian Coburn LPN per fax.
[2023-05-19 12:25] LABS: Glucose, Whole Blood 241 mg/dL (60-115)
--- NOTE | 2023-05-19 12:30 | MHC.CM.PN ---
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 PT DID REPORT MAYBE WANTING TO CHANGE HER HCP AND ADD 2 MORE OF CHILDREN TO CURRENT HCP HOWEVER PT APPEARS TO BE SOB AND ENDS CM ASSESSMENT. GOAL FOR DC IS HOME W/RESUMP OF SERVICES. PER PREVIOUS CM ASSESSMENT PT USES A [facility] (UNSURE OF [facility] OR [facility]) AND HAS DAILY [facility] CL[facility] SERVICES AND ?[facility] [employer] FOR METHADONE DELIVERY, CM TO PLACE REFERRAL. PCP IS FILOMENA HERNANDEZ AND CM WILL MEET W/PT PRIOR TO DC TO DETERMINE IF SHE STILL WANTS TO CHANGE HER HCP.
[2023-05-19] MEDS: dilTIAZem HCL CD 180 MG CAP.ER.24H 360 MG PO (12:41)
[2023-05-19] MEDS: methADONE HCl 20 MG/2 ML ORAL.CONC 50 MG PO (12:41)
[2023-05-19] MEDS: hydrALAZINE HCl 25 MG TABLET PO ×2 (12:50→18:24)
[2023-05-19 16:29] LABS: Glucose, Whole Blood 262 mg/dL (60-115)
[2023-05-19] MEDS: Budesonide 0.5 MG/2 ML AMPUL.NEB INHALE (19:43)
[2023-05-19 20:15] LABS: Glucose, Whole Blood 208 mg/dL (60-115)
[2023-05-19] MEDS: Doxycycline Monohydrate 100 MG CAPSULE PO (20:52)
[2023-05-19] MEDS: Montelukast Sodium 10 MG TABLET PO (20:52)
[2023-05-19] MEDS: lamoTRIgine 25 MG TABLET 150 MG PO (20:52)
[2023-05-19] MEDS: Gabapentin 300 MG CAPSULE PO (20:52)
[2023-05-19] MEDS: Insulin Glargine,Hum.rec.anlog 100 UNIT/ML 10 ML VIAL 45 UNIT SUBCUT (21:34)
[2023-05-19] MEDS: 0.9 % Sodium Chloride Flush 3 ML SYRINGE IVFLUSH (23:59)
[2023-05-20] VITALS (11 sets, daily range): BP systolic 136–158; BP diastolic 62–81; PULSE 81–118; RESP 16–24; TEMP 36.4–37; O2SAT 10–99
[2023-05-20 01:25] LABS: Glucose, Whole Blood 258 mg/dL (60-115)
[2023-05-20] MEDS: Omeprazole 40 MG CAPSULE.DR PO (05:45)
[2023-05-20] MEDS: Enoxaparin Sodium 40 MG/0.4 ML SYRINGE SUBCUT (05:46)
[2023-05-20 06:29] LABS: Basophils Percent Auto 0.1 % (0-2); Hematocrit 38.5 % (37.0-47.0); Hemoglobin 12.2 g/dl (12.0-16.0); Imm Gran Abs Auto 0.21 X10*3/uL (0.00-0.03); Imm Gran Pct Auto 1.3 % (0.0-0.4); Lymphocytes Absolute Auto 0.6 X10*3/uL (1.2-4.9); Lymphocytes Percent Auto 3.5 % (20-40); MANUAL DIFF FLAG SCAN; Mean Corpuscular HGB Conc 31.7 g/dl (31.0-35.0); Mean Platelet Volume 9.1 fL (9.4-12.3); Monocytes Absolute Auto 0.7 X10*3/uL (0.1-1.2); Monocytes Percent Auto 4.1 % (2-11); Neutrophils Absolute Auto 15.2 x10*3/uL (2.0-8.3); Platelet Count 261 X10*3/uL (160-400); Red Blood Count 3.93 X10*6/uL (4.20-5.50); Red Cell Distribution Width 13.3 % (11.0-16.0); SCAN SMEAR FLAG 1; White Blood Count 16.7 X10*3/uL (4.8-10.8)
[2023-05-20 06:39] LABS: Anion Gap 13 (12-20); Blood Urea Nitrogen 21 mg/dL (9-16); Calcium 10.2 mg/dL (8.4-10.2); Carbon Dioxide 40 mmol/L (22-29); Chloride 92 mmol/L (96-108); Creatinine Clr Calc Pharmacy 102.9; Estimated Glomerular Filt Rate > 60; Glucose Random 232 mg/dL (60-115); Potassium 4.8 mmol/L (3.3-5.1); Sodium 140 mmol/L (135-145)
[2023-05-20 06:55] LABS: SLIDE REVIEW VERIFIED
[2023-05-20 07:18] LABS: Glucose, Whole Blood 206 mg/dL (60-115)
[2023-05-20] MEDS: Albuterol/Iprat 2.5/0.5MG 3 ML AMPUL.NEB INHALE ×4 (07:43→19:42)
[2023-05-20] MEDS: Tiotropium Bromide 2.5 mcg 1 PUFF/2.5 MCG MIST.INHAL 2 PUFF INHALE (07:43)
[2023-05-20] MEDS: Budesonide 0.5 MG/2 ML AMPUL.NEB INHALE ×2 (07:43→19:42)
[2023-05-20] MEDS: methADONE HCl 20 MG/2 ML ORAL.CONC 50 MG PO (07:48)
[2023-05-20] MEDS: Furosemide 40 MG TABLET PO (07:51)
[2023-05-20] MEDS: Roflumilast 500 MCG TABLET PO (07:51)
[2023-05-20] MEDS: lamoTRIgine 25 MG TABLET 150 MG PO ×2 (07:51→19:53)
[2023-05-20] MEDS: metFORMIN HCl ER 500 MG TAB.ER.24H PO (07:52)
[2023-05-20] MEDS: Loratadine 10 MG TABLET PO (07:52)
[2023-05-20] MEDS: hydrALAZINE HCl 25 MG TABLET PO ×3 (07:52→16:47)
[2023-05-20] MEDS: Folic Acid 1 MG TABLET PO (07:52)
[2023-05-20] MEDS: Sulfamethox/Trimeth 400/80 TABLET 1 TAB PO (07:52)
[2023-05-20] MEDS: Gabapentin 300 MG CAPSULE PO ×2 (07:52→19:53)
[2023-05-20] MEDS: dilTIAZem HCL CD 180 MG CAP.ER.24H 360 MG PO (07:52)
[2023-05-20] MEDS: 0.9 % Sodium Chloride Flush 3 ML SYRINGE IVFLUSH ×3 (07:53→19:53)
[2023-05-20] MEDS: Insulin Lispro 100 UNIT/ML 3 ML VIAL SUBCUT ×4 (07:53→21:23)
[2023-05-20] MEDS: methylPREDNISolone Sod Succ 40 MG/ML VIAL IVPUSH ×2 (07:53→19:53)
[2023-05-20] MEDS: polyethylene glycoL 3350 17 GM POWD.PACK PO (07:53)
[2023-05-20] MEDS: Doxycycline Monohydrate 100 MG CAPSULE PO ×2 (07:54→19:53)
[2023-05-20] MEDS: Calcitonin,Salmon,Synth Nasal 3.7 ML BOTTLE 1 SPRAY NOSTRIL-B (08:05)
[2023-05-20 11:40] LABS: Glucose, Whole Blood 237 mg/dL (60-115)
--- NOTE | 2023-05-20 11:52 | MHC.CM.PN ---
CM RECEIVED A CALL BACK FROM LOC [phone] AT [facility] REPORTING PT IS ACTIVE W/THEM AND WOULD LIKE CM TO CALL AND LEAVE A MESSAGE WHEN PT IS READY FOR DC, DC SUMMARY CAN BE SENT VIA [facility], NO PLAN FOR DC AT THIS TIME.
--- NOTE | 2023-05-20 12:23 | HO.PM.IMPN ---
Subjective Subjective Date of Service: 05/20/23 Interval History: Complaining of shortness of breath with activity, feels comfortable with finger oximetry 94 95%, denies headache, no chest pain, no fevers, no chills, tolerating diet, no other acute issues overnight. Review of Systems All other system reviewed and negative. Physical Exam Vital Signs: Vital Signs: Last Vital Signs Temp 98.6 F 05/20/23 11:25 Pulse 118 H 05/20/23 11:25 Resp 20 05/20/23 11:25 BP 146/70 H 05/20/23 11:25 Pulse Ox 93 05/20/23 11:25 O2 Del Method Nasal Cannula 05/20/23 11:25 O2 Flow Rate 2 05/20/23 11:25 Oxygen Flow Rate 2.5 05/19/23 00:03 BMI result Body Mass Index 34.3 Const: Other: General: awake alert x3, sitting comfortably in no acute distress. Neck no JVD Anicteric sclera Resp: Diminished sounds bilaterally, prolonged expiration, few expiratory wheeze,no crackles CVS: S1,S2,RRR GI: abdomen soft, non tender bowel sounds audible Skin: No rash Extremities mild edema Neuro: motor grossly intact Psych: appropriate affect Objective Data Active Medications Acetaminophen (Acetaminophen 325 Mg Tablet) 650 mg PO Q6H PRN PRN Reason: Pain, Mild (Pain Scale 1-3) Albuterol/Ipratropium (Albuterol/Iprat 2.5/0.5mg 3 Ml Ampul.Neb) 3 ml INHALE RQ4H WHILE AWAKE [facility] Last Admin: 05/20/23 11:04 Dose: 3 ml Documented By: LIBAN Albuterol/Ipratropium (Albuterol/Iprat 2.5/0.5mg 3 Ml Ampul.Neb) 3 ml INHALE Q4H PRN PRN Reason: Wheezing Last Admin: 05/19/23 23:24 Dose: 3 ml Documented By: SVETLANA Budesonide (Budesonide 0.5 Mg/2 Ml Ampul.Neb) 0.5 mg INHALE RBID [facility] Last Admin: 05/20/23 07:43 Dose: 0.5 mg Documented By: LIBAN Calcitonin Cleaton (Calcitonin,Cleaton,Synth Nasal 3.7 Ml Bottle) 1 spray NOSTRIL-B DAILY [facility] Last Admin: 05/20/23 08:05 Dose: 1 spray Documented By: PARISH Clonazepam (Clonazepam 1 Mg Tablet) 1 mg PO BID PRN PRN Reason: Anxiety Dextrose (Dextrose 50 % 25 Gm/50 Ml Syringe) 25 gm IVPUSH Q15M PRN; Protocol PRN Reason: per Hypoglycemia Standing Ord. Diltiazem HCl (Diltiazem Hcl Cd 180 Mg Cap.Er.24h) 360 mg PO DAILY [facility]; Protocol Last Admin: 05/20/23 07:52 Dose: 360 mg Documented By: PARISH Docusate Sodium (Docusate Sodium 100 Mg Capsule) 100 mg PO BID PRN PRN Reason: constipation Doxycycline Monohydrate (Doxycycline Monohydrate 100 Mg Capsule) 100 mg PO BID [facility] Last Admin: 05/20/23 07:54 Dose: 100 mg Documented By: PARISH Enoxaparin Sodium (Enoxaparin Sodium 40 Mg/0.4 Ml Syringe) 40 mg SUBCUT Q24H [facility] Last Admin: 05/20/23 05:46 Dose: 40 mg Documented By: MELVIN Folic Acid (Folic Acid 1 Mg Tablet) 1 mg PO DAILY [facility] Last Admin: 05/20/23 07:52 Dose: 1 mg Documented By: PARISH Furosemide (Furosemide 40 Mg Tablet) 40 mg PO DAILY [facility]; Protocol Last Admin: 05/20/23 07:51 Dose: 40 mg Documented By: PARISH Gabapentin (Gabapentin 300 Mg Capsule) 300 mg PO BID [facility] Last Admin: 05/20/23 07:52 Dose: 300 mg Documented By: PARISH Glucose (Glucose Gel 15 Gm Gel..Gram.) 15 gm PO Q15M PRN; Protocol PRN Reason: per Hypoglycemia Standing Ord. Hydralazine HCl (Hydralazine Hcl 25 Mg Tablet) 25 mg PO TIDWM [facility]; Protocol Last Admin: 05/20/23 12:18 Dose: 25 mg Documented By: PARISH Insulin Glargine (Insulin Glargine,Hum.Rec.Anlog 100 Unit/Ml 10 Ml Vial) 45 unit SUBCUT BEDTIME [facility] Last Admin: 05/19/23 21:34 Dose: 45 unit Documented By: NAYE Insulin Human Lispro (Insulin Lispro 100 Unit/Ml 3 Ml Vial) 0 unit SUBCUT QIDACHS [facility]; Protocol Last Admin: 05/20/23 12:18 Dose: 4 unit Documented By: PARISH Lamotrigine (Lamotrigine 25 Mg Tablet) 150 mg PO BID [facility] Last Admin: 05/20/23 07:51 Dose: 150 mg Documented By: PARISH Loratadine (Loratadine 10 Mg Tablet) 10 mg PO DAILY [facility] Last Admin: 05/20/23 07:52 Dose: 10 mg Documented By: PARISH Melatonin (Melatonin 3 Mg Tablet) 6 mg PO BEDTIME PRN PRN Reason: Insomnia Metformin HCl (Metformin Hcl Er 500 Mg Tab.Er.24h) 500 mg PO DAILY [facility] Last Admin: 05/20/23 07:52 Dose: 500 mg Documented By: PARISH Methadone HCl (Methadone Hcl 20 Mg/2 Ml Oral.Conc) 50 mg PO DAILY [facility] Last Admin: 05/20/23 07:48 Dose: 50 mg Documented By: PARISH Methylprednisolone Sodium Succinate (Methylprednisolone Sod Succ 40 Mg/Ml Vial) 40 mg IVPUSH Q12H [facility] Last Admin: 05/20/23 07:53 Dose: 40 mg Documented By: PARISH Montelukast Sodium (Montelukast Sodium 10 Mg Tablet) 10 mg PO BEDTIME [facility] Last Admin: 05/19/23 20:52 Dose: 10 mg Documented By: NAYE Non-Formulary Medication (Arformoterol [Brovana]) 2 ml INHALE Q12H [facility] Omeprazole (Omeprazole 40 Mg Capsule.) 40 mg PO DAILY@0630 [facility] Last Admin: 05/20/23 05:45 Dose: 40 mg Documented By: MELVIN Ondansetron HCl (Ondansetron Hcl 4 Mg/2 Ml Vial) 4 mg IVPUSH Q8H PRN PRN Reason: Nausea and Vomiting Polyethylene Glycol (Polyethylene Glycol 3350 17 Gm Powd.Pack) 17 gm PO DAILY [facility] Last Admin: 05/20/23 07:53 Dose: 17 gm Documented By: PARISH Roflumilast (Roflumilast 500 Mcg Tablet) 500 mcg PO DAILY [facility] Last Admin: 05/20/23 07:51 Dose: 500 mcg Documented By: PARISH Sodium Chloride (0.9 % Sodium Chloride Flush 3 Ml Syringe) 3 ml IVFLUSH QSHIFT [facility] Last Admin: 05/20/23 07:53 Dose: 3 ml Documented By: PARISH Tiotropium [place] (Tiotropium [place] 2.5 Mcg 1 Puff/2.5 Mcg Mist.Inhal) 2 puff INHALE RDAILY [facility] Last Admin: 05/20/23 07:43 Dose: 2 puff Documented By: LIBAN Trimethoprim/Sulfamethoxazole (Sulfamethox/Trimeth 400/80 Tablet) 1 tab PO DAILY [facility] Last Admin: 05/20/23 07:52 Dose: 1 tab Documented By: PARISH Labs 05/20/23 05:44 05/20/23 05:44 Labs: Laboratory Results - last 24 hr 05/19/23 05/19/23 05/19/23 11:59 15:57 20:02 MCV MCH MCHC RDW Plt Count MPV Immature Gran % (Auto) Neut % (Auto) Lymph % (Auto) Hood % (Auto) Eos % (Auto) Baso % (Auto) Lymph # (Auto) Hood # (Auto) Eos # (Auto) Baso # (Auto) Abs Immat Gran (auto) Absolute Neuts (auto) Absolute Nucleated RBC Nucleated RBC % (auto) Smear Tech's Comments Anion Gap Estim Creat Clear Calc Estimated GFR POC Glucose 241 H 262 H 208 H Random Glucose Calcium 05/20/23 05/20/23 05/20/23 01:21 05:44 07:07 MCV 98.0 MCH 31.0 MCHC 31.7 RDW 13.3 Plt Count 261 MPV 9.1 L Immature Gran % (Auto) 1.3 H Neut % (Auto) 91.0 H Lymph % (Auto) 3.5 L Hood % (Auto) 4.1 Eos % (Auto) 0.0 Baso % (Auto) 0.1 Lymph # (Auto) 0.6 L Hood # (Auto) 0.7 Eos # (Auto) 0.0 Baso # (Auto) 0.0 Abs Immat Gran (auto) 0.21 H Absolute Neuts (auto) 15.2 H Absolute Nucleated RBC 0.000 Nucleated RBC % (auto) 0.0 Smear Tech's Comments VERIFIED Anion Gap 13 Estim Creat Clear Calc 102.9 Estimated GFR > 60 POC Glucose 258 H 206 H Random Glucose 232 H Calcium 10.2 05/20/23 11:35 MCV MCH MCHC RDW Plt Count MPV Immature Gran % (Auto) Neut % (Auto) Lymph % (Auto) Hood % (Auto) Eos % (Auto) Baso % (Auto) Lymph # (Auto) Hood # (Auto) Eos # (Auto) Baso # (Auto) Abs Immat Gran (auto) Absolute Neuts (auto) Absolute Nucleated RBC Nucleated RBC % (auto) Smear Tech's Comments Anion Gap Estim Creat Clear Calc Estimated GFR POC Glucose 237 H Random Glucose Calcium Assessment and Plan (1) Acute exacerbation of chronic obstructive airways disease: Status: Acute Plan 53-year-old female with pertinent history of chronic hypoxemic hypercapnic respiratory failure due to asthma-COPD overlap syndrome/OHS on 2 L baseline supplemental oxygen and nocturnal BiPAP, insulin-dependent diabetes mellitus, essential hypertension, mixed hyperlipidemia, opioid dependence on methadone, mood disorder who presents to the emergency department for evaluation of dyspnea. #. Acute on chronic hypoxemic hypercarbic respiratory failure due to exacerbation of asthma-COPD overlap syndrome: Shortness of breath improving Oxygen goal 88-92% Continue home dose of supplemental oxygen 2 L, stable ABGs ph 7.4, pCO2 70 Continue DuoNeb updraft/wean IV steroids, continue nocturnal BiPAP Strongly recommend to completely abstain from smoking. #. Insulin-dependent diabetes mellitus with hyperglycemia due to steroids, continue Lantus, diabetic diet and adjust insulin sliding scale #. Essential hypertension: Continue Cardizem and ,hydralazine , stable BP #. Mixed hyperlipidemia: Continue statin #. Opioid dependence on methadone maintenance dose #. Mood disorder: Continue home mood stabilizers # obesity grade 2 recommend low-calorie diet and weight reduction. DVT prophylaxis: Lovenox Full code Patient need continued inpatient hospitalization for treatment of acute COPD exacerbation requiring IV steroids and close clinical monitoring Quality Stroke Does the patient have a stroke diagnosis?: No VTE Prior VTE?: No VTE Risk Level:: Medical - moderate - high VTE Device Contraindication: Treatment Not Indicated VTE Drug Contraindication: N/A - Med Ordered
[2023-05-20 16:17] LABS: Glucose, Whole Blood 361 mg/dL (60-115)
[2023-05-20] MEDS: Insulin Glargine,Hum.rec.anlog 100 UNIT/ML 10 ML VIAL 45 UNIT SUBCUT (19:53)
[2023-05-20] MEDS: Montelukast Sodium 10 MG TABLET PO (19:53)
[2023-05-20 20:57] LABS: Glucose, Whole Blood 328 mg/dL (60-115)
[2023-05-21] VITALS (7 sets, daily range): BP systolic 128–156; BP diastolic 71–95; PULSE 96–126; RESP 18–23; TEMP 36.1–36.4; O2SAT 92–98
[2023-05-21] MEDS: Albuterol/Iprat 2.5/0.5MG 3 ML AMPUL.NEB INHALE ×3 (03:38→11:43)
[2023-05-21] MEDS: Enoxaparin Sodium 40 MG/0.4 ML SYRINGE SUBCUT (05:59)
[2023-05-21] MEDS: Omeprazole 40 MG CAPSULE.DR PO (05:59)
[2023-05-21 07:34] LABS: Glucose, Whole Blood 322 mg/dL (60-115)
[2023-05-21] MEDS: Loratadine 10 MG TABLET PO (07:43)
[2023-05-21] MEDS: lamoTRIgine 25 MG TABLET 150 MG PO (07:43)
[2023-05-21] MEDS: Gabapentin 300 MG CAPSULE PO (07:43)
[2023-05-21] MEDS: hydrALAZINE HCl 25 MG TABLET PO ×2 (07:43→11:53)
[2023-05-21] MEDS: Sulfamethox/Trimeth 400/80 TABLET 1 TAB PO (07:44)
[2023-05-21] MEDS: Doxycycline Monohydrate 100 MG CAPSULE PO (07:44)
[2023-05-21] MEDS: dilTIAZem HCL CD 180 MG CAP.ER.24H 360 MG PO (07:44)
[2023-05-21] MEDS: Furosemide 40 MG TABLET PO (07:44)
[2023-05-21] MEDS: metFORMIN HCl ER 500 MG TAB.ER.24H PO (07:44)
[2023-05-21] MEDS: Folic Acid 1 MG TABLET PO (07:44)
[2023-05-21] MEDS: methADONE HCl 20 MG/2 ML ORAL.CONC 50 MG PO (07:45)
[2023-05-21] MEDS: methylPREDNISolone Sod Succ 40 MG/ML VIAL IVPUSH (07:45)
[2023-05-21] MEDS: 0.9 % Sodium Chloride Flush 3 ML SYRINGE IVFLUSH (07:45)
[2023-05-21] MEDS: Insulin Lispro 100 UNIT/ML 3 ML VIAL SUBCUT ×2 (07:45→11:53)
[2023-05-21] MEDS: Calcitonin,Salmon,Synth Nasal 3.7 ML BOTTLE 1 SPRAY NOSTRIL-B (07:45)
[2023-05-21] MEDS: polyethylene glycoL 3350 17 GM POWD.PACK PO (07:46)
[2023-05-21] MEDS: Roflumilast 500 MCG TABLET PO (07:49)
[2023-05-21] MEDS: acetaZOLAMIDE 250 MG TABLET PO (07:58)
[2023-05-21] MEDS: Tiotropium Bromide 2.5 mcg 1 PUFF/2.5 MCG MIST.INHAL 2 PUFF INHALE (08:03)
[2023-05-21] MEDS: Budesonide 0.5 MG/2 ML AMPUL.NEB INHALE (08:04)
--- NOTE | 2023-05-21 10:27 | P.DS_ITS ---
DS: Providers Provider Date of Service: 05/21/23 Date of admission: 05/19/23 05:28 Primary care physician: Kelli Benavides MD DS: Diagnosis Discharge Diagnosis (1) Acute exacerbation of chronic obstructive airways disease: Status: Acute DS: Summary Hospital Course Hospital Course: History of presenting illness: Date of Service: 05/19/23 Chief Complaint: Dyspnea This is a 53-year-old female with pertinent history of chronic hypoxemic hypercapnic respiratory failure due to asthma-COPD overlap syndrome/OHS on 2 L baseline supplemental oxygen and nocturnal BiPAP, insulin-dependent diabetes mellitus, essential hypertension, mixed hyperlipidemia, opioid dependence on m ethadone, mood disorder who presents to the emergency department for evaluation of dyspnea. Patient states her symptoms started one day prior to presentation. She started having dyspnea which is worse with exertion. It was associated with wheezing. No relief with home O2 or home inhalers. Her symptoms have progressed over the last 24-48 hours. Patient denies chest pain, palpitations or cough. No fever, chills, abdominal pain, changes in urinary or bowel habits. No sick contacts. No orthopnea or PND In the emergency department, patient with wheezing despite multiple DuoNeb treatments. Hospital course: 53-year-old female with pertinent history of chronic hypoxemic hypercapnic respiratory failure due to asthma-COPD overlap syndrome/OHS on 2 L baseline supplemental oxygen and nocturnal BiPAP, insulin-dependent diabetes mellitus, essential hypertension, mixed hyperlipidemia, opioid dependence on methadone, mood disorder who presents to the emergency department for evaluation of dyspnea and admitted with a diagnosis of: #. Acute on chronic hypoxemic hypercarbic respiratory failure due to exacerbation of asthma-COPD overlap syndrome, treated with IV steroids, DuoNeb updraft and nocturnal BiPAP patient responded well to above treatment was maintained on 2 L of oxygen , ABG showed ph 7.4, pCO2 70, she responded well to above treatment therefore being discharged home with recommendations to continue home oxygen 2 L with oxygen goal of 88-92% she is strongly advised to abstain from smoking, allergens, recommend to continue doxycycline and Bactrim as previously prescribed by pulmonology, patient at home sometimes take 30 mg of prednisone but mostly on 20 mg recommend to gradually wean prednisone from 30 mg to 25 mg and then to 20 mg, prednisone 5 mg total number 30 tablets dispensed. #. Insulin-dependent diabetes mellitus with hyperglycemia due to steroids, continue Lantus, diabetic diet and metformin. #. Essential hypertension: Continue Cardizem and ,hydralazine. #. Mixed hyperlipidemia: Continue statin. #. Opioid dependence continue methadone maintenance dose #. Mood disorder: Continue home mood stabilizers. # Obesity grade 2 recommended low-calorie diet and weight reduction. Time Attestation Discharge Coordination Time: discharge time of ____ minutes Quality: Safe Use of Opioids Does Pt have an Active Cancer Diagnosis on the Problem List?: No Quality: Stroke Does the patient have a stroke diagnosis?: No Physical Exam Vital Signs: Vital Signs: Last Vital Signs Temp 96.9 F 05/21/23 07:11 Pulse 112 H 05/21/23 08:06 Resp 18 05/21/23 08:06 BP 156/80 H 05/21/23 07:11 Pulse Ox 97 05/21/23 07:11 O2 Del Method BiPAP 05/21/23 07:11 O2 Flow Rate 2 05/21/23 00:00 FiO2 28 05/20/23 15:41 Oxygen Flow Rate 2.5 05/19/23 00:03 BMI result Body Mass Index 34.3 Const: Other: General: awake alert x3, sitting comfortably in no acute distress. Neck: no JVD Anicteric sclera Resp: Diminished sounds bilaterally, prolonged expiration, few expiratory wheeze,no crackles CVS: S1,S2,RRR GI: abdomen soft, non tender, bowel sounds audible. Skin: No rash Extremities mild edema Neuro: motor grossly intact Psych: appropriate affect DS: Data Data Completed and Pending Completed studies during hospitalization [Text1]: Procedures Assistance with Respiratory Ventilation, 24-96 Consecutive Hours, Continuous Positive Airway Pressure (02/21/23) Assistance with Respiratory Ventilation, Less than 24 Consecutive Hours, Continuous Positive Airway Pressure (04/07/23) Insertion of Endotracheal Airway into Trachea, Via Natural or Artificial Opening (12/21/22) Insertion of Infusion Device into Right Atrium, Percutaneous Approach (12/21/21) Insertion of Infusion Device into Right Brachial Vein, Percutaneous Approach (07/28/22) Insertion of Infusion Device into Superior Vena Cava, Percutaneous Approach (12/21/22) Insertion of Infusion Device into Upper Vein, Percutaneous Approach (02/21/23) Introduction of Vasopressor into Peripheral Vein, Percutaneous Approach (12/21/21) Respiratory Ventilation, 24-96 Consecutive Hours (12/21/22) Ultrasonography of Superior Vena Cava, Guidance (12/21/22) Labs on day of discharge: Laboratory Results - last 24 hr 05/20/23 05/20/23 05/20/23 11:35 16:12 20:53 POC Glucose 237 H 361 H* 328 H 05/21/23 07:13 POC Glucose 322 H Discharge Plan Discharge Anticipated Discharge Date/Time: 05/21/23 09:55 Patient Disposition: Home Health Service Discharge Diagnosis: Acute on chronic hypoxic, hypercarbic respiratory failure due to exacerbation of asthma/COPD overlap syndrome Referrals: Kelli Benavides MD [Primary Care Provider] - 1 Week Discharge Medications: New prednisone 5 mg tablet 5 mg PO DAILY Qty: 30 0RF acetazolamide 250 mg Tablet 250 mg PO BID Qty: 10 0RF Continued ipratropium-albuterol 0.5 mg-3 mg(2.5 mg base)/3 mL solution for nebulization 3 ml PO Q4H PRN (Reason: for wheezing) Qty: 540 6RF gabapentin 300 mg capsule 300 mg PO BID Qty: 60 11RF albuterol sulfate [ProAir HFA] 90 mcg/actuation HFA aerosol inhaler 2 puff inhalation Q4H PRN (Reason: Shortness Of Breath Or Wheezing) Qty: 1 0RF omeprazole 40 mg capsule,delayed release(DR/EC) 40 mg PO DAILY@0630 30 Days Qty: 30 6RF furosemide 20 mg tablet 40 mg PO DAILY 90 Days Qty: 180 0RF prednisone 10 mg tablet 30 mg PO DAILY 30 Days Qty: 90 3RF diltiazem HCl [Tiadylt ER] 360 mg capsule,extended release 24 hr 360 mg PO DAILY rosuvastatin 5 mg tablet 5 mg PO BEDTIME roflumilast [Daliresp] 500 mcg tablet 500 mcg PO DAILY metformin 500 mg tablet extended release 24 hr 500 mg PO DAILY hydralazine 25 mg tablet 25 mg PO TIDWM insulin lispro 100 unit/mL solution 4 unit subcut TIDAC PRN (Reason: Hyperglycemia) Rx Instructions: per sliding scale methadone 10 mg/mL Concentrate 50 mg PO DAILY Patient Comments: [facility] lamotrigine 150 mg tablet 150 mg PO BID calcitonin (salmon) 200 unit/actuation spray,non-aerosol 1 spray intranasal DAILY Rx Instructions: one nostril every day, alternate sides. insulin glargine [Lantus U-100 Insulin] 100 unit/mL solution 45 unit subcut BEDTIME docusate sodium 100 mg capsule 100 mg PO BID PRN (Reason: constipation) clonazepam 1 mg tablet 1 mg PO BID PRN (Reason: Anxiety) polyethylene glycol 3350 [Miralax] 17 gram/dose powder 17 g PO DAILY ammonium lactate 12 % lotion 1 appl topical DAILY sulfamethoxazole-trimethoprim 400-80 mg tablet 1 tab PO DAILY zolpidem 5 mg tablet 5 mg PO BEDTIME PRN (Reason: Sleep) Rx Instructions: use with 100% BIPAP compliance only diclofenac sodium 1 % gel 4 g TOPICAL QID PRN (Reason: Pain) cholecalciferol (vitamin D3) 1,250 mcg (50,000 unit) capsule 1,250 mcg PO 2XW doxycycline monohydrate 100 mg tablet 100 mg PO BID lidocaine 5 % adhesive patch,medicated 1 patch topical QAM PRN (Reason: Pain) montelukast 10 mg tablet 10 mg PO BEDTIME loratadine [Claritin] 10 mg tablet 10 mg PO DAILY (DME) compress.stocking,knee,reg,med Misc See Rx Instructions .Route Qty: 2 0RF Rx Instructions: 15-20 cm arformoterol [Brovana] 15 mcg/2 mL solution for nebulization 2 ml inhalation Q12H 30 Days Qty: 120 11RF budesonide 0.5 mg/2 mL suspension for nebulization 0.5 mg inhalation BID Qty: 120 11RF tiotropium bromide [Spiriva with HandiHaler] 18 mcg capsule, w/inhalation device 1 cap inhalation DAILY Qty: 30 11RF (DME) nebulizers Mis See Rx Instructions .ROUTE Rx Instructions: As directed folic acid 1 mg tablet 1 mg PO DAILY 30 Days Qty: 30 6RF Discontinued ibuprofen 600 mg tablet 600 mg PO Q8H PRN (Reason: pain) Discharge Orders: Discharge Order (Routine); Ordered 05/21/23 Ordered By: Vel Ramires Diet: Diabetic diet Activity on Discharge: As tolerated Stand Alone Forms: Patient Portal Discharge page Care Plan Goals: Finished course of doxycycline as prescribed Continue all home inhalers On prednisone 30 mg and at times take 20 mg Recommend to take 30 mg daily for 5 days, then take 25 mg daily for 5 days and resume 20 mg daily dose and gradually wean to 15 mg Prednisone 5 mg tablets #30 tablets dispensed Health Concerns: Chronic respiratory failure continue home oxygen and all inhalers Diabetes Strongly recommend to abstain completely from smoking avoid secondhand smoke and allergens Plan of Treatment: Outpatient follow-up with primary care physician and pulmonology call for appointment Assessment: As above
--- NOTE | 2023-05-21 10:37 | MHC.CM.PN ---
Pt has been medically cleared for DC, she will go home via family transport and resume home care services from [facility].
[2023-05-21 11:42] LABS: Glucose, Whole Blood 204 mg/dL (60-115)
== END 2023-05-21 13:20 | disposition home health service (06) ==
LOC: HO.ED 05-19 04:35 → HO.EDOVER 05-19 05:36 → HO.IMC 05-19 07:38
PROVIDERS: Admitting Provider Student in an Organized Health Care Education/Training Program; Emergency Provider Emergency Medicine; PCP Family Medicine; Visit Provider Hospitalist
DX: J96.22 Acute and chronic respiratory failure with hypercapnia (principal); J96.21 Acute and chronic respiratory failure with hypoxia; J44.1 Chronic obstructive pulmonary disease with (acute) exacerbation; R51.9 Headache, unspecified; E11.9 Type 2 diabetes mellitus without complications; Z79.4 Long term (current) use of insulin; I10 Essential (primary) hypertension; F39 Unspecified mood [affective] disorder; F11.90 Opioid use, unspecified, uncomplicated; Z79.899 Other long term (current) drug therapy; E78.2 Mixed hyperlipidemia; Z72.0 Tobacco use; E66.9 Obesity, unspecified; Z68.34 Body mass index [BMI] 34.0-34.9, adult; Z11.52 Encounter for screening for COVID-19; Z20.828 Contact with and (suspected) exposure to other viral communicable diseases
CPT/HCPCS: 0241U; 36415; 70450; 71045; 80048; 80076; 82803; 82947; 83690; 83880; 84484; 85025; 93005; 93971; 94640; 94660; 96365; 96372; 96375; 96376; 99222; 99285; J1650; J2920; J2930; J3475

== ENCOUNTER → 2023-05-19 00:08 | Outpatient (BNV) | payer MEDICAID, SELFPAY | PROVIDERS: Admitting Provider Student in an Organized Health Care Education/Training Program; Emergency Provider Emergency Medicine; PCP Family Medicine; Visit Provider Internal Medicine Cardiovascular Disease | DX: I49.3 Ventricular premature depolarization (principal) | CPT/HCPCS: 93010 ==

== ENCOUNTER → 2023-05-19 00:30 | Outpatient (BNV) | payer MEDICAID, SELFPAY | PROVIDERS: Emergency Provider Emergency Medicine; Visit Provider Student in an Organized Health Care Education/Training Program | DX: J96.21 Acute and chronic respiratory failure with hypoxia (principal); J96.22 Acute and chronic respiratory failure with hypercapnia; J44.1 Chronic obstructive pulmonary disease with (acute) exacerbation | CPT/HCPCS: 99222; 99233; 99238; 99499 ==

== ENCOUNTER 2023-06-01 13:55 | Inpatient (IN) | payer MEDICAID, SELFPAY ==
[2023-06-01] VITALS (8 sets, daily range): BP systolic 143–178; BP diastolic 77–110; PULSE 103–115; RESP 14–36; TEMP 36.8; O2SAT 94–97; BMI 37.8
--- NOTE | ~2023-06-01 | XR_ITS ---
EXAMINATION: XR CHEST CLINICAL INFORMATION: Reason for Exam SOB COMPARISON: Chest radiograph 05/19/2023 TECHNIQUE: One view of the chest FINDINGS: Lines and tubes: None. Mild increased interstitial opacities which may reflect interstitial edema or atypical/viral infection. No pleural effusion. No pneumothorax. Cardiac silhouette is mildly enlarged, unchanged. XR/XR chest 1V IMPRESSION: 1. Mild increased interstitial opacities which may reflect interstitial edema or atypical/viral infection. 2. Cardiac silhouette is mildly enlarged, unchanged.
--- NOTE | 2023-06-01 14:14 | ECG_ITS ---
Test Reason : sob Blood Pressure : / mmHG Vent. Rate : 107 BPM Atrial Rate : 107 BPM P-R Int : 140 ms QRS Dur : 100 ms QT Int : 354 ms P-R-T Axes : 056 020 039 degrees QTc Int : 472 ms Artifact in tracing AGE AND GENDER SPECIFIC ECG ANALYSIS Sinus tachycardia Incomplete right bundle branch block cannot exclude old Inferior infarct Abnormal ECG When compared with ECG of 19-MAY-2023 01:53, No significant changes seen Referred By: Lidia Green Electronically Signed By:RONALD SCHAFER
[2023-06-01 14:51] LABS: Appearance Urine Clear; Color Urine Yellow; Glucose Urine UA Negative (Negative); Leukocyte Esterase Urine Negative (Negative); Nitrite Urine Negative (Negative); Urine Blood Negative (Negative); Urine Ketones Negative (Negative); Urine Protein Negative (Neg-Trace)
[2023-06-01] MEDS: Albuterol Sulfate 5 MG, Albuterol/Iprat 2.5/0.5MG 3 ML 3 ML INHALE (14:55)
[2023-06-01 15:15] LABS: Amphetamine Screen Urine Not Detected (Not Detect); Barbiturates, Urine Not Detected (Not Detect); Cannabinoid Screen Urine Not Detected (Not Detect); Cocaine Screen Urine Not Detected (Not Detect); Fentanyl, urine Not Detected (Not Detect)
[2023-06-01 15:16] LABS: Opiate Screen Urine Not Detected (Not Detect); Phencyclidine Screen Urine Not Detected (Not Detect)
[2023-06-01 15:22] LABS: VBG Base Excess 17.4 mmol/L; VBG HCO3 45 mmol/L (22-26); VBG pCO2 65 mmHg; VBG pH 7.44 (7.32-7.43); VBG pO2 182 mmHg
[2023-06-01 15:24] LABS: Venous Blood Gas Refer to POC result
[2023-06-01] MEDS: Doxycycline Hyclate 100 MG in 0.9 % Sodium Chloride 250 ML 166.67 MG IV (15:30)
--- NOTE | 2023-06-01 15:41 | ED_ITS ---
HPI - SOB/Dyspnea General Chief Complaint: Dyspnea Stated Complaint: DIFFICULTY BREATHING Time Seen by Provider: 06/01/23 14:15 Source: patient and EMS Mode of arrival: EMS Limitations: no limitations History of Present Illness HPI Narrative: 57-year-old female with history of chronic hypoxic hypercapnic respiratory failure due to COPD/asthma overlap syndrome and sleep apnea uses 2 L of oxygen 07/10, on nocturnal BiPAP, insulin-dependent diabetes, essential hypertension, mixed hyperlipidemia, on methadone. Presented to the emergency department for 1 day of difficulty breathing, wheezing. Patient also has redness and hotness on her right lower extremity. No fever, no chills. Related Data Home Medications Medication Instructions Recorded Confirmed loratadine 10 mg tablet (Claritin) 10 mg PO DAILY 12/30/19 05/19/23 montelukast 10 mg tablet 10 mg PO BEDTIME 12/30/19 05/19/23 diltiazem HCl 360 mg capsule,24 360 mg PO DAILY 11/16/20 05/19/23 hr,extended release (Tiadylt ER) roflumilast 500 mcg tablet 500 mcg PO DAILY 11/16/20 05/19/23 (Daliresp) rosuvastatin 5 mg tablet 5 mg PO BEDTIME 11/16/20 05/19/23 metformin 500 mg tablet,extended 500 mg PO DAILY 05/18/21 05/19/23 release 24 hr methadone 10 mg/mL oral concentrate 50 mg PO DAILY 06/06/21 05/19/23 hydralazine 25 mg tablet 25 mg PO TIDWM 11/02/21 05/19/23 insulin lispro 100 unit/mL 4 unit subcut TIDAC PRN 11/02/21 05/19/23 subcutaneous solution Hyperglycemia clonazepam 1 mg tablet 1 mg PO BID PRN Anxiety 06/28/22 05/19/23 lamotrigine 150 mg tablet 150 mg PO BID 07/29/22 05/19/23 calcitonin (salmon) 200 1 spray intranasal DAILY 09/30/22 05/19/23 unit/actuation nasal spray insulin glargine 100 unit/mL 45 unit subcut BEDTIME 09/30/22 05/19/23 subcutaneous solution (Lantus U-100 Insulin) docusate sodium 100 mg capsule 100 mg PO BID PRN constipation 10/20/22 05/19/23 nebulizers 11/08/22 04/08/23 polyethylene glycol 3350 17 17 g PO DAILY constipation 12/21/22 05/19/23 gram/dose oral powder (Miralax) ammonium lactate 12 % lotion 1 appl topical DAILY Rash 02/02/23 05/19/23 sulfamethoxazole 400 1 tab PO DAILY 04/08/23 05/19/23 mg-trimethoprim 80 mg tablet diclofenac sodium 1 % topical gel 4 g topical QID PRN Pain 05/04/23 05/19/23 zolpidem 5 mg tablet 5 mg PO BEDTIME PRN Sleep 05/04/23 05/19/23 cholecalciferol (vitamin D3) 1,250 1,250 mcg PO 2XW 05/19/23 05/19/23 mcg (50,000 unit) capsule doxycycline monohydrate 100 mg 100 mg PO BID 05/19/23 05/19/23 tablet lidocaine 5 % topical patch 1 patch topical QAM PRN Pain 05/19/23 05/19/23 Previous Rx's Medication Instructions Recorded ipratropium 0.5 mg-albuterol 3 mg 3 ml PO Q4H PRN for wheezing #540 09/02/22 (2.5 mg base)/3 mL nebulization mL soln folic acid 1 mg tablet 1 mg PO DAILY 30 days #30 tabs 12/19/22 gabapentin 300 mg capsule 300 mg PO BID #60 caps 01/14/23 albuterol sulfate 90 mcg/actuation 2 puff inhalation Q4H PRN 02/19/23 aerosol inhaler (ProAir HFA) Shortness Of Breath Or Wheezing #1 ea arformoterol 15 mcg/2 mL solution 2 ml inhalation Q12H 30 days #120 02/20/23 for nebulization (Brovana) mL budesonide 0.5 mg/2 mL suspension 0.5 mg (2 mL) inhalation BID #120 02/20/23 for nebulization mL compress.stocking,knee,reg,med #2 ea 02/20/23 tiotropium bromide 18 mcg capsule 1 cap inhalation DAILY #30 ea 02/20/23 with inhalation device (Spiriva with HandiHaler) omeprazole 40 mg capsule,delayed 40 mg PO DAILY@0630 30 days #30 03/31/23 release caps furosemide 20 mg tablet 40 mg (2 x 20 mg) PO DAILY 90 days 05/06/23 #180 tabs prednisone 10 mg tablet 30 mg (3 x 10 mg) PO DAILY 30 days 05/12/23 #90 tabs acetazolamide 250 mg tablet 250 mg PO BID #10 tabs 05/21/23 prednisone 5 mg tablet 5 mg PO DAILY #30 tabs 05/21/23 Allergies Allergy/AdvReac Type Severity Reaction Status Date / Time No Known Allergies Allergy Verified 05/03/23 16:24 [No Known Allergies*] Review of Systems 2 Review of Systems: All other systems are reviewed and are negative Constitutional: Reports as per HPI and Reports no additional constitutional complaints Eyes: Reports as per HPI and Reports no additional eye complaints Reports system reviewed and no additional complaints, except as documented Cardiovascular: Reports as per HPI and Reports no additional cardiovascular complaints Respiratory: Reports as per HPI and Reports no additional respiratory complaints Gastrointestinal: Reports as per HPI and Reports no additional gastrointestinal complaints Genitourinary: Reports no additional female genitourinary complaints Musculoskeletal: Reports no additional musculoskeletal complaints Skin/Breast: Reports system reviewed and no additional complaints, except as docu Psychiatric: Reports no additional psychiatric complaints Endocrine: Reports no additional endocrine complaints Hematologic/Lymphatic: Reports no additional hematologic/lymphatic complaints Allergic/Immunologic: Reports no additional allergic/immunologic complaints Reports system reviewed and no additional complaints, except as documented and Reports Abnormal speech [facility] Past Medical History Medical History COPD exacerbation Respiratory failure Acute and chronic respiratory failure with hypercapnia Type 2 diabetes mellitus Opioid dependence Left leg swelling COPD (chronic obstructive pulmonary disease) Chronic lung disease Constipation Asthma with exacerbation Hypercapnic respiratory failure Salmonella gastroenteritis Pleuritic chest pain CHITO (obstructive sleep apnea) Cor pulmonale Obesity with alveolar hypoventilation Aspiration into airway Congestive heart failure Bacteremia Morbid obesity Chronic constipation Cellulitis COPD mixed type Leukocytosis Pulmonary congestion Vomiting Acute respiratory failure Status asthmaticus with COPD (chronic obstructive pulmonary disease) Hypertensive cardiovascular disease Morbid obesity Rib fractures Pulmonary nodule Abnormal chest x-ray Limb swelling Abdominal pain Diabetes mellitus Chronic respiratory failure Poor dentition Tobacco abuse Asthma-COPD overlap syndrome Hyperlipidemia, unspecified Essential hypertension Type 2 diabetes mellitus with unspecified complications Chronic respiratory failure Hypogammaglobulinemia Surgical History H/O tubal ligation Family History Family History Father Diabetes Other Asthma Social History Social History Household Members: Children Household Members Other:: daughter Housing: Apartment Do you presently have visiting nurse or other home services: Yes Unable to assess alcohol history related to: Unknown Alcohol intake: former Comment: patient refusing bed alarm Patient Tobacco Use Status: Former Tobacco user Quit Date: February 2022 Tobacco use type: Cigarette Cigarettes Per Day: 1 Years Smoked: 35 e-Cigarette/Vaping Use: Currently Using Second Hand Smoke Exposure: No Substance Use Type: Opiates Advance Directives: Yes Advance Directives on File: Yes Advance Directives Date on File: 06/12/21 service: No Current occupational status: unemployed and disabled Physical Exam 2 Vital Signs: Vital Signs: Last Vital Signs Temp 98.3 F 06/01/23 14:07 Pulse 112 H 06/01/23 14:56 Resp 28 H 06/01/23 14:57 BP 148/86 H 06/01/23 14:07 Pulse Ox 96 06/01/23 14:07 O2 Del Method Nasal Cannula 06/01/23 14:07 Oxygen Flow Rate 2 06/01/23 14:07 BMI result Body Mass Index 37.8 Vital signs have been reviewed and appear to be correct. Blood pressure elevated. Heart rate elevated. Respiratory rate elevated. Temperature normal. Oxygen saturation normal. Appearance: Alert. Oriented X3. Head: Normal external exam. Normocephalic. Atraumatic. No Coffman signs noted. No raccoon eyes noted Eyes: PERRLA. EOMI. Conjunctiva and sclera normal. Eyelids normal. ENT: TM's Normal. Pharynx normal. Uvula midline. Moist mucous membranes. No trismus noted. No drooling noted. No muffled voice noted. Neck: Normal inspection. Neck supple. FROM. No adenopathy. Thyroid Normal. No meningeal signs. No neck mass noted. CVS: Normal heart rate and rhythm. Heart sound normal. No murmurs noted. Pulses normal throughout. Respiratory: Mild acute respiratory distress. Painless inspiration. Breath sounds normal. Prolonged expiratory wheezing with prolonged expiration. Chest nontender. No accessory muscle usage noted or decreased air movement noted. Abdomen: Soft and nontender. Bowel sounds normal in all 4 quadrants. No distention noted. No organomegaly noted. No visible injury noted. Back: No CVA tenderness. Full range of motion noted. Skin: Skin warm and dry. Normal skin color. Normal skin turgor. No rashes/lesions/lacerations noted. Extremities: No lower extremity edema. Extremities exhibit normal range of motion. Extremities nontender. Neuro: Oriented X 3. Cranial nerve exam: II-XII are grossly intact No motor deficit. No sensory deficit. Reflexes normal. Course Reevaluation(s) Reevaluation #1: Chronic COPD/asthma overlap syndrome came in with acute respiratory distress require rescue BiPAP in the ED. 1. Admit and continue BiPAP machine. 2. Right lower extremities cellulitis start on doxycycline. 3. COPD required BiPAP and met criteria for SARs patient is receiving doxycycline. Patient is on dialysis will administer 250 cc IV fluids. Time: 16:43 Medications Administered Discontinued Medications Generic Name Dose Route Start Last Admin Trade Name Freq PRN Reason Stop Dose Admin Albuterol Sulfate 5 mg/ 0 mg 06/01/23 14:48 06/01/23 14:55 Albuterol/Ipratropium 3 ml INHALE 06/01/23 14:49 7.5 each ONCE ONE Administration Doxycycline Hyclate 100 mg/ 250 mls @ 166.67 mls/hr 06/01/23 15:12 06/01/23 15:30 Sodium Chloride IV 06/01/23 16:41 166.67 mls/hr ONCE ONE Administration Medical Decision Making Differential Diagnosis Differential Diagnoses: The differential diagnosis associated with the presentation includes (COPD exacerbation, pneumonia, pneumothorax, pleural effusion, cellulitis, sepsis, electrolyte abnormality, severe anemia.) Admission/Observation Consideration of admission/observation: Escalation of care including admission/observation considered Consult Healthcare Provider Management of the patient was discussed with: Hospitalist (Dr. Steele) Lab Data MDM Lab Attestation statement: I reviewed the patient's lab results. 06/01/23 15:12 Labs: Lab Results 06/01/23 06/01/23 06/01/23 Range/Units 14:37 15:12 15:13 VBG pH (7.32-7.43) VBG pCO2 mmHg VBG pO2 mmHg VBG HCO3 (22-26) mmol/L VBG O2 Saturation % VBG Base Excess mmol/L Sodium 142 (135-145) mmol/L Potassium 4.2 (3.3-5.1) mmol/L Chloride 94 L (96-108) mmol/L Carbon Dioxide 33 H (22-29) mmol/L Anion Gap 19 (12-20) BUN 17 H (9-16) mg/dL Creatinine 0.70 (0.5-1.4) mg/dL Estim Creat Clear Calc 95.3 Estimated GFR > 60 Random Glucose 190 H (60-115) mg/dL Lactic Acid (0.5-2.0) mmol/L Calcium 9.7 (8.4-10.2) mg/dL Total Bilirubin 0.3 (0.0-1.0) mg/dL AST 25 (5-31) U/L ALT 25 (0-31) U/L Alkaline Phosphatase 53 (39-117) U/L Troponin I High Sens 12.0 (<3.5-17.0) ng/L B-Natriuretic Peptide 29 (<100) pg/mL Total Protein 7.5 (6.5-8.0) g/dL Albumin 3.9 (3.5-5.0) g/dL Urine Color Yellow Urine Appearance Clear Urine pH 6.0 (5.0-9.0) Ur Specific [place] 1.010 (1.005-1.025) Urine Protein Negative (Neg-Trace) mg/dL Urine Glucose (UA) Negative (Negative) mg/dL Urine Ketones Negative (Negative) mg/dL Urine Blood Negative (Negative) Urine Nitrite Negative (Negative) Ur Leukocyte Esterase Negative (Negative) Urine Opiates Screen Not Detected (Not Detect) Urine Fentanyl Screen Not Detected (Not Detect) Ur Barbiturates Screen Not Detected (Not Detect) Ur Phencyclidine Scrn Not Detected (Not Detect) Ur Amphetamines Screen Not Detected (Not Detect) U Benzodiazepines Scrn Not Detected (Not Detect) Urine Cocaine Screen Not Detected (Not Detect) U Marijuana (THC) Screen Not Detected (Not Detect) Influenza Type A (PCR) NEGATIVE (Negative) Influenza Type B (PCR) NEGATIVE (Negative) RSV RNA Qual (PCR) NEGATIVE (Negative) SARS-CoV-2 RNA (RT-PCR) NEGATIVE (Negative) 06/01/23 Range/Units 15:15 VBG pH 7.44 H (7.32-7.43) VBG pCO2 65 mmHg VBG pO2 182 mmHg VBG HCO3 45 H (22-26) mmol/L VBG O2 Saturation 100.0 % VBG Base Excess 17.4 mmol/L Sodium (135-145) mmol/L Potassium (3.3-5.1) mmol/L Chloride (96-108) mmol/L Carbon Dioxide (22-29) mmol/L Anion Gap (12-20) BUN (9-16) mg/dL Creatinine (0.5-1.4) mg/dL Estim Creat Clear Calc Estimated GFR Random Glucose (60-115) mg/dL Lactic Acid 3.0 H* (0.5-2.0) mmol/L Calcium (8.4-10.2) mg/dL Total Bilirubin (0.0-1.0) mg/dL AST (5-31) U/L ALT (0-31) U/L Alkaline Phosphatase (39-117) U/L Troponin I High Sens (<3.5-17.0) ng/L B-Natriuretic Peptide (<100) pg/mL Total Protein (6.5-8.0) g/dL Albumin (3.5-5.0) g/dL Urine Color Urine Appearance Urine pH (5.0-9.0) Ur Specific [place] (1.005-1.025) Urine Protein (Neg-Trace) mg/dL Urine Glucose (UA) (Negative) mg/dL Urine Ketones (Negative) mg/dL Urine Blood (Negative) Urine Nitrite (Negative) Ur Leukocyte Esterase (Negative) Urine Opiates Screen (Not Detect) Urine Fentanyl Screen (Not Detect) Ur Barbiturates Screen (Not Detect) Ur Phencyclidine Scrn (Not Detect) Ur Amphetamines Screen (Not Detect) U Benzodiazepines Scrn (Not Detect) Urine Cocaine Screen (Not Detect) U Marijuana (THC) Screen (Not Detect) Influenza Type A (PCR) (Negative) Influenza Type B (PCR) (Negative) RSV RNA Qual (PCR) (Negative) SARS-CoV-2 RNA (RT-PCR) (Negative) Independent Interpretation I performed an independent interpretation of an: Plain X-Ray (Chest:1. Mild increased interstitial opacities which may reflect interstitial edema or atypical/viral infection. 2. Cardiac silhouette is mildly enlarged, unchanged. ) Critical Care Time Critical Care Time Critical Care Time: Yes Total Critical Care Time: 60 Attestation: I spent 60 minutes providing critical care service to the patient, this including time spent at the bedside to evaluate the patient, reassess the patient, monitoring vital signs, review labs, and radiographic studies, counseling the patient/family, discussing the case with consultants, disposition the patient. Discharge Plan Discharge Clinical Impression: Acute exacerbation of chronic obstructive airways disease, Cellulitis of leg, right Patient Disposition: Admitted As Inpatient Prescriptions: No Action ipratropium-albuterol 0.5 mg-3 mg(2.5 mg base)/3 mL solution for nebulization 3 ml PO Q4H PRN (Reason: for wheezing) Qty: 540 6RF gabapentin 300 mg capsule 300 mg PO BID Qty: 60 11RF albuterol sulfate [ProAir HFA] 90 mcg/actuation HFA aerosol inhaler 2 puff inhalation Q4H PRN (Reason: Shortness Of Breath Or Wheezing) Qty: 1 0RF omeprazole 40 mg capsule,delayed release(DR/EC) 40 mg PO DAILY@0630 30 Days Qty: 30 6RF furosemide 20 mg tablet 40 mg PO DAILY 90 Days Qty: 180 0RF prednisone 10 mg tablet 30 mg PO DAILY 30 Days Qty: 90 3RF diltiazem HCl [Tiadylt ER] 360 mg capsule,extended release 24 hr 360 mg PO DAILY rosuvastatin 5 mg tablet 5 mg PO BEDTIME roflumilast [Daliresp] 500 mcg tablet 500 mcg PO DAILY metformin 500 mg tablet extended release 24 hr 500 mg PO DAILY hydralazine 25 mg tablet 25 mg PO TIDWM insulin lispro 100 unit/mL solution 4 unit subcut TIDAC PRN (Reason: Hyperglycemia) Rx Instructions: per sliding scale methadone 10 mg/mL Concentrate 50 mg PO DAILY Patient Comments: [facility] lamotrigine 150 mg tablet 150 mg PO BID calcitonin (salmon) 200 unit/actuation spray,non-aerosol 1 spray intranasal DAILY Rx Instructions: one nostril every day, alternate sides. insulin glargine [Lantus U-100 Insulin] 100 unit/mL solution 45 unit subcut BEDTIME docusate sodium 100 mg capsule 100 mg PO BID PRN (Reason: constipation) clonazepam 1 mg tablet 1 mg PO BID PRN (Reason: Anxiety) polyethylene glycol 3350 [Miralax] 17 gram/dose powder 17 g PO DAILY ammonium lactate 12 % lotion 1 appl topical DAILY sulfamethoxazole-trimethoprim 400-80 mg tablet 1 tab PO DAILY zolpidem 5 mg tablet 5 mg PO BEDTIME PRN (Reason: Sleep) Rx Instructions: use with 100% BIPAP compliance only diclofenac sodium 1 % gel 4 g TOPICAL QID PRN (Reason: Pain) cholecalciferol (vitamin D3) 1,250 mcg (50,000 unit) capsule 1,250 mcg PO 2XW doxycycline monohydrate 100 mg tablet 100 mg PO BID lidocaine 5 % adhesive patch,medicated 1 patch topical QAM PRN (Reason: Pain) prednisone 5 mg tablet 5 mg PO DAILY Qty: 30 0RF acetazolamide 250 mg Tablet 250 mg PO BID Qty: 10 0RF montelukast 10 mg tablet 10 mg PO BEDTIME loratadine [Claritin] 10 mg tablet 10 mg PO DAILY (DME) compress.stocking,knee,reg,med Misc See Rx Instructions .Route Qty: 2 0RF Rx Instructions: 15-20 cm arformoterol [Brovana] 15 mcg/2 mL solution for nebulization 2 ml inhalation Q12H 30 Days Qty: 120 11RF budesonide 0.5 mg/2 mL suspension for nebulization 0.5 mg inhalation BID Qty: 120 11RF tiotropium bromide [Spiriva with HandiHaler] 18 mcg capsule, w/inhalation device 1 cap inhalation DAILY Qty: 30 11RF (DME) nebulizers Misc See Rx Instructions .ROUTE Rx Instructions: As directed folic acid 1 mg tablet 1 mg PO DAILY 30 Days Qty: 30 6RF
[2023-06-01 15:42] LABS: B Type Natriuretic Peptide 29 pg/mL (<100)
[2023-06-01 15:46] LABS: Benzodiazepines Screen Urine Not Detected (Not Detect)
[2023-06-01 16:04] LABS: Influenza A PCR NEGATIVE (Negative); Influenza B PCR NEGATIVE (Negative); Resp Syncy Virus RNA Qual PCR NEGATIVE (Negative); SARS COV2 PCR INHOUSE NEGATIVE (Negative)
[2023-06-01 16:09] LABS: Alanine Aminotransferase 25 U/L (0-31); Albumin Level 3.9 g/dL (3.5-5.0); Alkaline Phosphatase 53 U/L (39-117); Anion Gap 19 (12-20); Aspartate Amino Transferase 25 U/L (5-31); Bilirubin Total 0.3 mg/dL (0.0-1.0); Blood Urea Nitrogen 17 mg/dL (9-16); Calcium 9.7 mg/dL (8.4-10.2); Carbon Dioxide 33 mmol/L (22-29); Chloride 94 mmol/L (96-108); Creatinine Clr Calc Pharmacy 95.3; Estimated Glomerular Filt Rate > 60; Glucose Random 190 mg/dL (60-115); Potassium 4.2 mmol/L (3.3-5.1); Sodium 142 mmol/L (135-145); Total Protein 7.5 g/dL (6.5-8.0)
[2023-06-01] MEDS: 0.9 % Sodium Chloride 1,000 ML 999 ML IV (16:56)
--- NOTE | 2023-06-01 17:15 | PM.IMHP ---
History of Present Illness Date of Service: 06/01/23 Chief Complaint: Shortness of breath 53-year-old woman with a history of chronic hypoxic hypercapnic respiratory failure, sleep apnea, nocturnal BiPAP presented to the ER with complaints of 24 hours of increased shortness of breath and wheezing. She denied fever, chills, nausea, vomiting, recent illness, sick contacts. She has had multiple hospitalizations for this. Chest x-ray showing mild increased interstitial opacities with mildly enlarged cardiac silhouette. Blood gas with pH of 7.44/65/182/45, baseline for patient. Elevated white blood cell count with history of chronic steroid use, lactic acid 3.0 Patient was placed on BiPAP in the ER, started on doxycycline. Given albuterol and 1 L of IV fluid. Will admit patient for further management and treatment of acute on chronic respiratory failure. Review of Systems Review of Systems: Denies any recent fever chills or decrease in appetite respiratory see HPI cardiovascular denies any chest pain gastrointestinal denies any dysphagia abdominal pain nausea vomiting or diarrhea genitourinary denies any dysuria frequency or hematuria musculoskeletal denies any joint pain or swelling neuropsych denies any weakness or seizures all other systems reviewed are negative [facility] Medical History (Updated 06/01/23 @ 17:22 by China Brito NP) Type 2 diabetes mellitus Opioid dependence Constipation Salmonella gastroenteritis CHITO (obstructive sleep apnea) Obesity with alveolar hypoventilation Congestive heart failure Chronic constipation Acute respiratory failure Hypertensive cardiovascular disease Pulmonary nodule Chronic respiratory failure Tobacco abuse Asthma-COPD overlap syndrome Hyperlipidemia, unspecified Essential hypertension Chronic respiratory failure Family History Father Diabetes Other Asthma Surgical History H/O tubal ligation Social History Household Members: Children Household Members Other:: daughter Housing: Apartment Do you presently have visiting nurse or other home services: Yes Unable to assess alcohol history related to: Unknown Alcohol intake: former Comment: patient refusing bed alarm Patient Tobacco Use Status: Former Tobacco user Quit Date: February 2022 Tobacco use type: Cigarette Cigarettes Per Day: 1 Years Smoked: 35 Smoked in Last 30 Days: No e-Cigarette/Vaping Use: Currently Using Patient Interested in Nicotine Replacement: No Patient Given Instructions on How to Stop Smoking: No Second Hand Smoke Exposure: No Use of substances other than those prescribed or required for medical reasons: No Substance Use Type: Opiates Currently Displaying Signs/Symptoms of Drug Intoxication Withdrawal: No Advance Directives: Yes Advance Directives Information Provided: No Advance Directives on File: Yes Advance Directives Date on File: 06/12/21 Nutrition Risks: No Nutritional Risk Patient : No service: No Current occupational status: unemployed and disabled Meds Allergies Allergy/AdvReac Type Severity Reaction Status Date / Time No Known Allergies Allergy Verified 05/03/23 16:24 [No Known Allergies*] Active Medications: Current Medications Sodium Chloride (Ns) 1,000 mls @ 999 mls/hr IV .Q1H1M ONE Stop: 06/01/23 17:47 Last Admin: 06/01/23 16:56 Dose: 999 mls/hr Home Medications Medication Instructions Recorded Confirmed Last Taken Type loratadine 10 mg tablet (Claritin) 10 mg PO DAILY 12/30/19 06/01/23 05/18/23 History montelukast 10 mg tablet 10 mg PO BEDTIME 12/30/19 06/01/23 05/18/23 History diltiazem HCl 360 mg capsule,24 360 mg PO DAILY 11/16/20 06/01/23 05/18/23 History hr,extended release (Tiadylt ER) roflumilast 500 mcg tablet 500 mcg PO DAILY 11/16/20 06/01/23 05/18/23 History (Daliresp) rosuvastatin 5 mg tablet 5 mg PO BEDTIME 11/16/20 06/01/23 05/18/23 History metformin 500 mg tablet,extended 500 mg PO DAILY 05/18/21 06/01/23 05/18/23 History release 24 hr methadone 10 mg/mL oral concentrate 50 mg PO DAILY 06/06/21 06/02/23 06/01/23 History hydralazine 25 mg tablet 25 mg PO TIDWM 11/02/21 06/01/23 05/18/23 History insulin lispro 100 unit/mL 4 unit subcut TIDAC PRN 11/02/21 06/01/23 05/18/23 History subcutaneous solution Hyperglycemia clonazepam 1 mg tablet 1 mg PO BID PRN Anxiety 06/28/22 06/01/23 Unknown History lamotrigine 150 mg tablet 150 mg PO BID 07/29/22 06/01/23 05/18/23 History calcitonin (salmon) 200 1 spray intranasal DAILY 09/30/22 06/01/23 05/18/23 History unit/actuation nasal spray insulin glargine 100 unit/mL 45 unit subcut BEDTIME 09/30/22 06/01/23 05/18/23 History subcutaneous solution (Lantus U-100 Insulin) docusate sodium 100 mg capsule 100 mg PO BID PRN constipation 10/20/22 06/01/23 Unknown History nebulizers 11/08/22 04/08/23 02/02/23 09:00 History polyethylene glycol 3350 17 17 g PO DAILY constipation 12/21/22 06/01/23 02/20/23 History gram/dose oral powder (Miralax) ammonium lactate 12 % lotion 1 appl topical DAILY Rash 02/02/23 06/01/23 05/18/23 History sulfamethoxazole 400 1 tab PO DAILY 04/08/23 06/01/23 05/18/23 History mg-trimethoprim 80 mg tablet diclofenac sodium 1 % topical gel 4 g topical QID PRN Pain 05/04/23 06/01/23 Unknown History zolpidem 5 mg tablet 5 mg PO BEDTIME PRN Sleep 05/04/23 06/01/23 Unknown History cholecalciferol (vitamin D3) 1,250 1,250 mcg PO 2XW 05/19/23 06/01/23 Unknown History mcg (50,000 unit) capsule lidocaine 5 % topical patch 1 patch topical QAM PRN Pain 05/19/23 06/01/23 Unknown History acetazolamide 250 mg tablet 250 mg PO DAILY 06/01/23 06/01/23 Unknown History Physical Exam Vital Signs and Narrative: Vital Signs: Last Vital Signs Temp 98.3 F 06/01/23 14:07 Pulse 106 H 06/01/23 17:11 Resp 20 06/01/23 17:11 BP 147/87 H 06/01/23 17:11 Pulse Ox 95 06/01/23 17:11 O2 Del Method BiPAP 06/01/23 17:11 FiO2 25 06/01/23 17:11 Oxygen Flow Rate 2 06/01/23 14:07 BMI result Body Mass Index 37.8 Appearing in no acute distress head is normocephalic atraumatic eyes pupils are PERRLA sclera is anicteric mouth throat mucous membranes are intact and moist neck is supple no lymphadenopathy, no JVD noted lung sounds dim heart regular rate rhythm, clear S1, S2 positive bowel sounds, abdomen is soft, nontender neuro patient is alert x3, no focal deficits Results Labs 06/02/23 07:36 06/02/23 07:36 Labs: Laboratory Results - last 24 hr 06/01/23 06/01/23 06/01/23 14:37 15:12 15:13 VBG pH VBG pCO2 VBG pO2 VBG HCO3 VBG O2 Saturation VBG Base Excess Anion Gap 19 Estim Creat Clear Calc 95.3 Estimated GFR > 60 Random Glucose 190 H Lactic Acid Calcium 9.7 Total Bilirubin 0.3 AST 25 ALT 25 Alkaline Phosphatase 53 Troponin I High Sens 12.0 B-Natriuretic Peptide 29 Total Protein 7.5 Albumin 3.9 Urine Color Yellow Urine Appearance Clear Urine pH 6.0 Ur Specific [place] 1.010 Urine Protein Negative Urine Glucose (UA) Negative Urine Ketones Negative Urine Blood Negative Urine Nitrite Negative Ur Leukocyte Esterase Negative Urine Opiates Screen Not Detected Urine Fentanyl Screen Not Detected Ur Barbiturates Screen Not Detected Ur Phencyclidine Scrn Not Detected Ur Amphetamines Screen Not Detected U Benzodiazepines Scrn Not Detected Urine Cocaine Screen Not Detected U Marijuana (THC) Screen Not Detected Influenza Type A (PCR) NEGATIVE Influenza Type B (PCR) NEGATIVE RSV RNA Qual (PCR) NEGATIVE SARS-CoV-2 RNA (RT-PCR) NEGATIVE 06/01/23 15:15 VBG pH 7.44 H VBG pCO2 65 VBG pO2 182 VBG HCO3 45 H VBG O2 Saturation 100.0 VBG Base Excess 17.4 Anion Gap Estim Creat Clear Calc Estimated GFR Random Glucose Lactic Acid 3.0 H* Calcium Total Bilirubin AST ALT Alkaline Phosphatase Troponin I High Sens B-Natriuretic Peptide Total Protein Albumin Urine Color Urine Appearance Urine pH Ur Specific [place] Urine Protein Urine Glucose (UA) Urine Ketones Urine Blood Urine Nitrite Ur Leukocyte Esterase Urine Opiates Screen Urine Fentanyl Screen Ur Barbiturates Screen Ur Phencyclidine Scrn Ur Amphetamines Screen U Benzodiazepines Scrn Urine Cocaine Screen U Marijuana (THC) Screen Influenza Type A (PCR) Influenza Type B (PCR) RSV RNA Qual (PCR) SARS-CoV-2 RNA (RT-PCR) Imaging Radiologist's Impressions: Impressions Chest X-Ray 06/01/23 14:25 IMPRESSION: 1. Mild increased interstitial opacities which may reflect interstitial edema or atypical/viral infection. 2. Cardiac silhouette is mildly enlarged, unchanged. Assessment and Plan (1) Acute exacerbation of chronic obstructive airways disease: Status: Acute Plan 53-year-old woman with a history of chronic respiratory failure, asthma, COPD overlap, CHITO presenting with worsening shortness of breath. History of frequent hospitalizations for respiratory failure. Acute on chronic hypoxic and hypercapnic respiratory failure Placed on BiPAP in the ER, BiPAP p.r.n. IV steroids, scheduled duonebs supplemental oxygen as needed Hypertension stable blood pressure Continue lisinopril, hydralazine History of heart failure with preserved ejection fraction No exacerbation, continue furosemide, diltiazem Diabetes mellitus type 2 Sliding scale, Lantus at bedtime, metformin, mealtime insulin ADA diet Mental health Continue home medications Chronic opiate dependence Continue methadone Obesity. BMI 34.6 Discussed importance of weight management as this may be contributing to worsening of other comorbidities DVT prophylaxis with lovenox Full code patient will require 48hrs of hospitalization for treatment of acute hypoxic and hypercapnic respiratory failure requiring scheduled respiratory treatments and BiPAP. Patient is at risk for decompensation due to hx of resp failure and dependance on bipap Quality Stroke Does the patient have a stroke diagnosis?: No VTE Prior VTE?: No VTE Risk Level:: Medical - moderate - high VTE Device Contraindication: Treatment Not Indicated VTE Drug Contraindication: N/A - Med Ordered
[2023-06-01 17:21] LABS: Reflex Lactate? Lactic Acid Added
[2023-06-01 17:31] LABS: Basophils Percent Auto 0.2 % (0-2); Eosinophils Percent Auto 0.1 % (0-4); Hematocrit 35.6 % (37.0-47.0); Hemoglobin 11.7 g/dl (12.0-16.0); Imm Gran Abs Auto 0.12 X10*3/uL (0.00-0.03); Imm Gran Pct Auto 0.8 % (0.0-0.4); Lymphocytes Absolute Auto 0.5 X10*3/uL (1.2-4.9); MANUAL DIFF FLAG SCAN; Mean Corpuscular HGB Conc 32.9 g/dl (31.0-35.0); Mean Corpuscular Hemoglobin 31.5 pg (27.0-33.0); Monocytes Absolute Auto 0.5 X10*3/uL (0.1-1.2); Monocytes Percent Auto 3.6 % (2-11); Neutrophils Percent Auto 92.3 % (45-73); Platelet Count 272 X10*3/uL (160-400); Red Blood Count 3.71 X10*6/uL (4.20-5.50); Red Cell Distribution Width 13.5 % (11.0-16.0); SCAN SMEAR FLAG 1; White Blood Count 15.2 X10*3/uL (4.8-10.8)
--- NOTE | 2023-06-01 17:37 | PHA.MEDREC ---
Pharmacy Consult ? Medication Reconciliation Pharmacy has completed the medication reconciliation. spoke with patient to confirm medications. She reports finishing doxycycline, is taking acetazolamide once daily, still not taking azathioprine, confirmed insulin dose, confirmed prednisone dose, reported 50mg of methadone last taken today and has her VNA pick it up for her. She reports nothing else has changed since previous discharge.
--- NOTE | 2023-06-01 17:41 | PC.NURSE ---
Patient presented to ER with increasing SOB, wheezy, home o2 and treatments not helping. Patient significantly WOB with chest tightness, RT placed patient on Bipap 18/6 @ 25% with marked improvement. R leg warm to touch and reddened, provider made aware, ABX and fluids ordered and given per MAY. Patient currently resting quietly eating on stretcher.
[2023-06-01 17:55] LABS: SLIDE REVIEW VERIFIED
--- NOTE | 2023-06-01 18:40 | PC.NURSE ---
Fluid bolus currently running, patient transitioned to NC in order to eat willing to back on Bipap in 20 minutes.
[2023-06-01 19:45] LABS: ~Lactic Acid-LAB USE ONLY 2.1 mmol/L (0.5-2.0)
--- NOTE | 2023-06-01 19:49 | PC.NURSE ---
Critical lab received for lactic acid 2.1. [place] text sent to Dr. Corral. No new orders at this time.
[2023-06-01] MEDS: methylPREDNISolone Sod Succ 40 MG/ML VIAL IVPUSH (19:53)
[2023-06-01] MEDS: Enoxaparin Sodium 40 MG/0.4 ML SYRINGE SUBCUT (19:53)
[2023-06-01] MEDS: Albuterol/Iprat 2.5/0.5MG 3 ML AMPUL.NEB INHALE ×2 (20:17→23:22)
[2023-06-01 21:19] LABS: Reflex Lactate? 2 Y
[2023-06-01 22:23] LABS: ~Lactic Acid-LAB USE ONLY 1.8 mmol/L (0.5-2.0)
[2023-06-02] VITALS (12 sets, daily range): BP systolic 135–156; BP diastolic 75–94; PULSE 97–115; RESP 18–22; TEMP 36–37.1; O2SAT 93–98; BMI 38.6
[2023-06-02 00:19] LABS: Glucose, Whole Blood 272 mg/dL (60-115)
[2023-06-02] MEDS: Albuterol/Iprat 2.5/0.5MG 3 ML AMPUL.NEB INHALE ×5 (05:10→19:47)
[2023-06-02] MEDS: methylPREDNISolone Sod Succ 40 MG/ML VIAL IVPUSH ×2 (07:45→21:19)
[2023-06-02 07:47] LABS: Glucose, Whole Blood 289 mg/dL (60-115)
[2023-06-02 08:40] LABS: Hematocrit 36.7 % (37.0-47.0); Hemoglobin 11.7 g/dl (12.0-16.0); Mean Corpuscular HGB Conc 31.9 g/dl (31.0-35.0); Mean Corpuscular Hemoglobin 31.4 pg (27.0-33.0); Mean Corpuscular Volume 98.4 fL (80.0-98.0); Mean Platelet Volume 10.5 fL (9.4-12.3); Platelet Count 224 X10*3/uL (160-400); Red Blood Count 3.73 X10*6/uL (4.20-5.50); Red Cell Distribution Width 13.5 % (11.0-16.0); White Blood Count 13.1 X10*3/uL (4.8-10.8)
--- NOTE | 2023-06-02 08:46 | P.PNIM_ITS ---
Subjective Subjective Date of Service: 06/02/23 Physical Exam 2 Vital Signs: Vital Signs: Last Vital Signs Temp 97.2 F 06/02/23 07:08 Pulse 105 H 06/02/23 07:33 Resp 22 H 06/02/23 07:33 BP 148/75 H 06/02/23 07:08 Pulse Ox 98 06/02/23 07:08 O2 Del Method Nasal Cannula 06/02/23 07:08 O2 Flow Rate 2 06/02/23 07:08 FiO2 25 06/01/23 17:11 Oxygen Flow Rate 2 06/01/23 14:07 BMI result Body Mass Index 38.6 Objective Data Active Medications Acetaminophen (Acetaminophen 325 Mg Tablet) 650 mg PO Q4H PRN PRN Reason: Pain, Mild (Pain Scale 1-3) Albuterol/Ipratropium (Albuterol/Iprat 2.5/0.5mg 3 Ml Ampul.Neb) 3 ml INHALE RQ4H WHILE AWAKE [facility] Last Admin: 06/02/23 07:31 Dose: 3 ml Documented By: SANJAY Enoxaparin Sodium (Enoxaparin Sodium 40 Mg/0.4 Ml Syringe) 40 mg SUBCUT Q24H [facility] Last Admin: 06/01/23 19:53 Dose: 40 mg Documented By: AMMY Methylprednisolone Sodium Succinate (Methylprednisolone Sod Succ 40 Mg/Ml Vial) 40 mg IVPUSH Q12H [facility] Last Admin: 06/02/23 07:45 Dose: 40 mg Documented By: TAMIE Ondansetron HCl (Ondansetron Hcl 4 Mg/2 Ml Vial) 4 mg IVPUSH Q8H PRN PRN Reason: Nausea and Vomiting Senna (Sennosides 8.6 Mg Tablet) 17.2 mg PO BEDTIME PRN PRN Reason: Constipation Labs 06/02/23 07:36 06/01/23 15:12 Labs: Laboratory Results - last 24 hr 06/01/23 06/01/23 06/01/23 14:37 15:12 15:13 MCV MCH MCHC RDW Plt Count MPV Immature Gran % (Auto) Neut % (Auto) Lymph % (Auto) [place] % (Auto) Eos % (Auto) Baso % (Auto) Lymph # (Auto) [place] # (Auto) Eos # (Auto) Baso # (Auto) Abs Immat Gran (auto) Absolute Neuts (auto) Absolute Nucleated RBC Nucleated RBC % (auto) Smear Tech's Comments VBG pH VBG pCO2 VBG pO2 VBG HCO3 VBG O2 Saturation VBG Base Excess Anion Gap 19 Estim Creat Clear Calc 95.3 Estimated GFR > 60 POC Glucose Random Glucose 190 H Lactic Acid Lactic Acid F/U @ 2Hr Lactic Acid F/U @ 4Hr Calcium 9.7 Total Bilirubin 0.3 AST 25 ALT 25 Alkaline Phosphatase 53 Troponin I High Sens 12.0 B-Natriuretic Peptide 29 Total Protein 7.5 Albumin 3.9 Urine Color Yellow Urine Appearance Clear Urine pH 6.0 Ur Specific [place] 1.010 Urine Protein Negative Urine Glucose (UA) Negative Urine Ketones Negative Urine Blood Negative Urine Nitrite Negative Ur Leukocyte Esterase Negative Urine Opiates Screen Not Detected Urine Fentanyl Screen Not Detected Ur Barbiturates Screen Not Detected Ur Phencyclidine Scrn Not Detected Ur Amphetamines Screen Not Detected U Benzodiazepines Scrn Not Detected Urine Cocaine Screen Not Detected U Marijuana (THC) Screen Not Detected Influenza Type A (PCR) NEGATIVE Influenza Type B (PCR) NEGATIVE RSV RNA Qual (PCR) NEGATIVE SARS-CoV-2 RNA (RT-PCR) NEGATIVE 06/01/23 06/01/23 06/01/23 15:15 17:23 19:16 MCV 96.0 MCH 31.5 MCHC 32.9 RDW 13.5 Plt Count 272 MPV 9.0 L Immature Gran % (Auto) 0.8 H Neut % (Auto) 92.3 H Lymph % (Auto) 3.0 L [place] % (Auto) 3.6 Eos % (Auto) 0.1 Baso % (Auto) 0.2 Lymph # (Auto) 0.5 L [place] # (Auto) 0.5 Eos # (Auto) 0.0 Baso # (Auto) 0.0 Abs Immat Gran (auto) 0.12 H Absolute Neuts (auto) 14.0 H Absolute Nucleated RBC 0.000 Nucleated RBC % (auto) 0.0 Smear Tech's Comments VERIFIED VBG pH 7.44 H VBG pCO2 65 VBG pO2 182 VBG HCO3 45 H VBG O2 Saturation 100.0 VBG Base Excess 17.4 Anion Gap Estim Creat Clear Calc Estimated GFR POC Glucose Random Glucose Lactic Acid 3.0 H* Lactic Acid F/U @ 2Hr 2.1 H* Lactic Acid F/U @ 4Hr Calcium Total Bilirubin AST ALT Alkaline Phosphatase Troponin I High Sens B-Natriuretic Peptide Total Protein Albumin Urine Color Urine Appearance Urine pH Ur Specific [place] Urine Protein Urine Glucose (UA) Urine Ketones Urine Blood Urine Nitrite Ur Leukocyte Esterase Urine Opiates Screen Urine Fentanyl Screen Ur Barbiturates Screen Ur Phencyclidine Scrn Ur Amphetamines Screen U Benzodiazepines Scrn Urine Cocaine Screen U Marijuana (THC) Screen Influenza Type A (PCR) Influenza Type B (PCR) RSV RNA Qual (PCR) SARS-CoV-2 RNA (RT-PCR) 06/01/23 06/02/23 06/02/23 22:06 00:16 07:15 MCV MCH MCHC RDW Plt Count MPV Immature Gran % (Auto) Neut % (Auto) Lymph % (Auto) [place] % (Auto) Eos % (Auto) Baso % (Auto) Lymph # (Auto) [place] # (Auto) Eos # (Auto) Baso # (Auto) Abs Immat Gran (auto) Absolute Neuts (auto) Absolute Nucleated RBC Nucleated RBC % (auto) Smear Tech's Comments VBG pH VBG pCO2 VBG pO2 VBG HCO3 VBG O2 Saturation VBG Base Excess Anion Gap Estim Creat Clear Calc Estimated GFR POC Glucose 272 H 289 H Random Glucose Lactic Acid Lactic Acid F/U @ 2Hr Lactic Acid F/U @ 4Hr 1.8 Calcium Total Bilirubin AST ALT Alkaline Phosphatase Troponin I High Sens B-Natriuretic Peptide Total Protein Albumin Urine Color Urine Appearance Urine pH Ur Specific [place] Urine Protein Urine Glucose (UA) Urine Ketones Urine Blood Urine Nitrite Ur Leukocyte Esterase Urine Opiates Screen Urine Fentanyl Screen Ur Barbiturates Screen Ur Phencyclidine Scrn Ur Amphetamines Screen U Benzodiazepines Scrn Urine Cocaine Screen U Marijuana (THC) Screen Influenza Type A (PCR) Influenza Type B (PCR) RSV RNA Qual (PCR) SARS-CoV-2 RNA (RT-PCR) 06/02/23 07:36 MCV 98.4 H MCH 31.4 MCHC 31.9 RDW 13.5 Plt Count 224 MPV 10.5 Immature Gran % (Auto) Neut % (Auto) Lymph % (Auto) [place] % (Auto) Eos % (Auto) Baso % (Auto) Lymph # (Auto) [place] # (Auto) Eos # (Auto) Baso # (Auto) Abs Immat Gran (auto) Absolute Neuts (auto) Absolute Nucleated RBC 0.000 Nucleated RBC % (auto) 0.0 Smear Tech's Comments VBG pH VBG pCO2 VBG pO2 VBG HCO3 VBG O2 Saturation VBG Base Excess Anion Gap Estim Creat Clear Calc Estimated GFR POC Glucose Random Glucose Lactic Acid Lactic Acid F/U @ 2Hr Lactic Acid F/U @ 4Hr Calcium Total Bilirubin AST ALT Alkaline Phosphatase Troponin I High Sens B-Natriuretic Peptide Total Protein Albumin Urine Color Urine Appearance Urine pH Ur Specific [place] Urine Protein Urine Glucose (UA) Urine Ketones Urine Blood Urine Nitrite Ur Leukocyte Esterase Urine Opiates Screen Urine Fentanyl Screen Ur Barbiturates Screen Ur Phencyclidine Scrn Ur Amphetamines Screen U Benzodiazepines Scrn Urine Cocaine Screen U Marijuana (THC) Screen Influenza Type A (PCR) Influenza Type B (PCR) RSV RNA Qual (PCR) SARS-CoV-2 RNA (RT-PCR) Assessment and Plan (1) Acute exacerbation of chronic obstructive airways disease: Status: Acute Plan 53-year-old woman with a history of chronic respiratory failure, asthma, COPD overlap, CHIOT presenting with worsening shortness of breath. History of frequent hospitalizations for respiratory failure. Acute on chronic hypoxic and hypercapnic respiratory failure bipap prn IV steroids, scheduled duonebs supplemental oxygen as needed doxycycline for possible bronchitis Hypertension stable blood pressure Continue lisinopril, hydralazine History of heart failure with preserved ejection fraction No exacerbation, continue furosemide, diltiazem Diabetes mellitus type 2 Sliding scale, Lantus at bedtime, metformin, mealtime insulin ADA diet Mental health Continue home medications Chronic opiate dependence Continue methadone Obesity. BMI 38.6 Discussed importance of weight management as this may be contributing to worsening of other comorbidities DVT prophylaxis with lovenox Attending Dr. Jones Full code continue hospital stay for treatment of acute hypoxic and hypercapnic respiratory failure requiring scheduled respiratory treatments and BiPAP. Patient is at risk for decompensation due to hx of resp failure and dependance on bipap Quality Stroke Does the patient have a stroke diagnosis?: No VTE Prior VTE?: No VTE Risk Level:: Medical - moderate - high VTE Device Contraindication: Treatment Not Indicated VTE Drug Contraindication: N/A - Med Ordered
[2023-06-02 08:52] LABS: Anion Gap 15 (12-20); Blood Urea Nitrogen 24 mg/dL (9-16); Calcium 10.1 mg/dL (8.4-10.2); Carbon Dioxide 36 mmol/L (22-29); Chloride 95 mmol/L (96-108); Creatinine Clr Calc Pharmacy 93.7; Estimated Glomerular Filt Rate > 60; Glucose Random 302 mg/dL (60-115); Potassium 4.7 mmol/L (3.3-5.1); Sodium 141 mmol/L (135-145)
--- NOTE | 2023-06-02 09:30 | MHC.CM.PN ---
Steph 06/02/23, Pt lives alone and has [employer] services from her daughter and grand daughter, she has O2 at home from [facility], and she uses a walker. She is unsure if she will need assistance with transport home at [place]. She has a HCP on file, naming Tona and Miguel Plasencia, this was confirmed, PCP confirmed: Kelli Benavides. CM to follow and assist with DC plan.
--- NOTE | 2023-06-02 09:50 | HE.PHANOTE ---
RE METHADONE Patient receives methadone from [facility] Sophie ([phone]) Patient receives 50 mg, last given on 06/01/23 @9am
[2023-06-02] MEDS: dilTIAZem HCL CD 180 MG CAP.ER.24H 360 MG PO (10:34)
[2023-06-02] MEDS: Gabapentin 300 MG CAPSULE PO ×2 (10:35→21:20)
[2023-06-02] MEDS: Loratadine 10 MG TABLET PO (10:35)
[2023-06-02] MEDS: Folic Acid 1 MG TABLET PO (10:35)
[2023-06-02] MEDS: Roflumilast 500 MCG TABLET PO (10:35)
[2023-06-02] MEDS: lamoTRIgine 25 MG TABLET 150 MG PO ×2 (10:35→21:20)
[2023-06-02] MEDS: metFORMIN HCl ER 500 MG TAB.ER.24H PO (10:35)
[2023-06-02] MEDS: Furosemide 40 MG TABLET PO (10:35)
[2023-06-02] MEDS: acetaZOLAMIDE 250 MG TABLET PO (10:35)
[2023-06-02] MEDS: polyethylene glycoL 3350 17 GM POWD.PACK PO (10:36)
[2023-06-02] MEDS: Doxycycline Hyclate 100 MG in 0.9 % Sodium Chloride 250 ML 166.67 MG IV ×2 (10:36→21:18)
[2023-06-02 11:57] LABS: Glucose, Whole Blood 314 mg/dL (60-115)
[2023-06-02] MEDS: hydrALAZINE HCl 25 MG TABLET PO ×2 (12:00→17:28)
[2023-06-02] MEDS: methADONE HCl 20 MG/2 ML ORAL.CONC 50 MG PO (12:00)
[2023-06-02] MEDS: Insulin Lispro 100 UNIT/ML 3 ML VIAL SUBCUT ×3 (12:00→21:19)
[2023-06-02 16:18] LABS: Glucose, Whole Blood 312 mg/dL (60-115)
[2023-06-02] MEDS: Enoxaparin Sodium 40 MG/0.4 ML SYRINGE SUBCUT (17:28)
[2023-06-02 20:32] LABS: Glucose, Whole Blood 207 mg/dL (60-115)
[2023-06-02] MEDS: Insulin Glargine,Hum.rec.anlog 100 UNIT/ML 10 ML VIAL 45 UNIT SUBCUT (21:20)
[2023-06-02] MEDS: Atorvastatin Calcium 20 MG TABLET PO (21:20)
[2023-06-02] MEDS: Montelukast Sodium 10 MG TABLET PO (21:20)
[2023-06-02] MEDS: clonazePAM 1 MG TABLET PO (23:37)
[2023-06-03] VITALS (11 sets, daily range): BP systolic 130–155; BP diastolic 73–83; PULSE 65–107; RESP 14–20; TEMP 36.1–36.8; O2SAT 91–97
[2023-06-03] MEDS: Omeprazole 40 MG CAPSULE.DR PO (06:18)
[2023-06-03 06:59] LABS: Glucose, Whole Blood 300 mg/dL (60-115)
[2023-06-03] MEDS: Albuterol/Iprat 2.5/0.5MG 3 ML AMPUL.NEB INHALE ×4 (07:35→19:46)
--- NOTE | 2023-06-03 07:58 | PC.RT ---
Pt has been here for several days. No oxygen orders. RN aware will let provider aware
[2023-06-03] MEDS: Insulin Lispro 100 UNIT/ML 3 ML VIAL SUBCUT ×5 (08:03→20:40)
[2023-06-03] MEDS: acetaZOLAMIDE 250 MG TABLET PO (08:04)
[2023-06-03] MEDS: Roflumilast 500 MCG TABLET PO (08:04)
[2023-06-03] MEDS: Folic Acid 1 MG TABLET PO (08:04)
[2023-06-03] MEDS: Loratadine 10 MG TABLET PO (08:04)
[2023-06-03] MEDS: dilTIAZem HCL CD 180 MG CAP.ER.24H 360 MG PO (08:04)
[2023-06-03] MEDS: hydrALAZINE HCl 25 MG TABLET PO ×3 (08:04→17:04)
[2023-06-03] MEDS: Gabapentin 300 MG CAPSULE PO ×2 (08:04→20:26)
[2023-06-03] MEDS: metFORMIN HCl ER 500 MG TAB.ER.24H PO (08:04)
[2023-06-03] MEDS: Furosemide 40 MG TABLET PO (08:04)
[2023-06-03] MEDS: lamoTRIgine 25 MG TABLET 150 MG PO ×2 (08:05→20:26)
[2023-06-03] MEDS: methADONE HCl 20 MG/2 ML ORAL.CONC 50 MG PO (08:05)
[2023-06-03] MEDS: methylPREDNISolone Sod Succ 40 MG/ML VIAL IVPUSH ×2 (08:05→20:26)
[2023-06-03] MEDS: polyethylene glycoL 3350 17 GM POWD.PACK PO (08:06)
[2023-06-03] MEDS: Doxycycline Hyclate 100 MG in 0.9 % Sodium Chloride 250 ML 166 MG IV (08:14)
[2023-06-03 08:39] LABS: Hematocrit 36.2 % (37.0-47.0); Hemoglobin 11.7 g/dl (12.0-16.0); Mean Corpuscular HGB Conc 32.3 g/dl (31.0-35.0); Platelet Count 271 X10*3/uL (160-400); Red Blood Count 3.77 X10*6/uL (4.20-5.50); Red Cell Distribution Width 13.3 % (11.0-16.0); White Blood Count 16.7 X10*3/uL (4.8-10.8)
[2023-06-03 08:47] LABS: VBG Base Excess 10.1 mmol/L; VBG HCO3 36 mmol/L (22-26); VBG pCO2 55 mmHg; VBG pH 7.42 (7.32-7.43); VBG pO2 98 mmHg
[2023-06-03 08:57] LABS: Venous Blood Gas Refer to POC result
[2023-06-03 08:59] LABS: Anion Gap 14 (12-20); Blood Urea Nitrogen 24 mg/dL (9-16); Calcium 10.1 mg/dL (8.4-10.2); Carbon Dioxide 34 mmol/L (22-29); Chloride 96 mmol/L (96-108); Estimated Glomerular Filt Rate > 60; Glucose Random 311 mg/dL (60-115); Potassium 4.5 mmol/L (3.3-5.1); Sodium 139 mmol/L (135-145)
[2023-06-03 09:06] LABS: B Type Natriuretic Peptide 53 pg/mL (<100)
--- NOTE | 2023-06-03 10:36 | HO.PM.IMPN ---
Subjective Subjective Date of Service: 06/03/23 Review of Systems Follow up acute on chronic respiratory failure still with some sob on bipap prn Physical Exam Vital Signs: Vital Signs: Last Vital Signs Temp 97.4 F 06/03/23 07:28 Pulse 91 06/03/23 07:35 Resp 18 06/03/23 07:35 BP 143/82 H 06/03/23 07:28 Pulse Ox 97 06/03/23 07:28 O2 Del Method Nasal Cannula 06/03/23 07:28 O2 Flow Rate 2 06/03/23 07:28 FiO2 25 06/02/23 15:31 Oxygen Flow Rate 2 06/01/23 14:07 BMI result Body Mass Index 38.6 Appearing in no acute distress lung sounds dim heart regular rate rhythm, clear S1, S2 positive bowel sounds, abdomen is soft, nontender neuro patient is alert x3, no focal deficits Objective Data Active Medications Acetaminophen (Acetaminophen 325 Mg Tablet) 650 mg PO Q4H PRN PRN Reason: Pain, Mild (Pain Scale 1-3) Acetazolamide (Acetazolamide 250 Mg Tablet) 250 mg PO DAILY [facility] Last Admin: 06/03/23 08:04 Dose: 250 mg Documented By: NICOLASA Albuterol/Ipratropium (Albuterol/Iprat 2.5/0.5mg 3 Ml Ampul.Neb) 3 ml INHALE RQ4H WHILE AWAKE [facility] Last Admin: 06/03/23 07:35 Dose: 3 ml Documented By: SANJAY Atorvastatin Calcium (Atorvastatin Calcium 20 Mg Tablet) 20 mg PO BEDTIME [facility] Last Admin: 06/02/23 21:20 Dose: 20 mg Documented By: ANTONINA Calcitonin Captiva (Calcitonin,Captiva,Synth Nasal 3.7 Ml Bottle) 1 spray NOSTRIL-B DAILY [facility] Last Admin: 06/03/23 08:05 Dose: Not Given Documented By: NICOLASA Non-Admin Reason: Med Not Available Clonazepam (Clonazepam 1 Mg Tablet) 1 mg PO BID PRN PRN Reason: Anxiety Last Admin: 06/02/23 23:37 Dose: 1 mg Documented By: ANTONINA Dextrose (Dextrose 50 % 25 Gm/50 Ml Syringe) 25 gm IVPUSH Q15M PRN; Protocol PRN Reason: per Hypoglycemia Standing Ord. Diltiazem HCl (Diltiazem Hcl Cd 180 Mg Cap.Er.24h) 360 mg PO DAILY [facility]; Protocol Last Admin: 06/03/23 08:04 Dose: 360 mg Documented By: NICOLASA Docusate Sodium (Docusate Sodium 100 Mg Capsule) 100 mg PO BID PRN PRN Reason: constipation Enoxaparin Sodium (Enoxaparin Sodium 40 Mg/0.4 Ml Syringe) 40 mg SUBCUT Q24H [facility] Last Admin: 06/02/23 17:28 Dose: 40 mg Documented By: TAMIE Folic Acid (Folic Acid 1 Mg Tablet) 1 mg PO DAILY [facility] Last Admin: 06/03/23 08:04 Dose: 1 mg Documented By: NICOLASA Furosemide (Furosemide 40 Mg Tablet) 40 mg PO DAILY [facility]; Protocol Last Admin: 06/03/23 08:04 Dose: 40 mg Documented By: NICOLASA Gabapentin (Gabapentin 300 Mg Capsule) 300 mg PO BID [facility] Last Admin: 06/03/23 08:04 Dose: 300 mg Documented By: NICOLASA Glucose (Glucose Gel 15 Gm Gel..Gram.) 15 gm PO Q15M PRN; Protocol PRN Reason: per Hypoglycemia Standing Ord. Hydralazine HCl (Hydralazine Hcl 25 Mg Tablet) 25 mg PO TIDWM [facility]; Protocol Last Admin: 06/03/23 08:04 Dose: 25 mg Documented By: NICOLASA Doxycycline Hyclate 100 mg/ (Sodium Chloride) 250 mls @ 166.67 mls/hr IV Q12H [facility] Last Infusion: 06/03/23 08:18 Dose: 0 mls/hr Documented By: NICOLASA Insulin Glargine (Insulin Glargine,Hum.Rec.Anlog 100 Unit/Ml 10 Ml Vial) 45 unit SUBCUT BEDTIME [facility] Last Admin: 06/02/23 21:20 Dose: 45 unit Documented By: ANTONINA Insulin Human Lispro (Insulin Lispro 100 Unit/Ml 3 Ml Vial) 4 unit SUBCUT TIDAC PRN PRN Reason: Hyperglycemia Insulin Human Lispro (Insulin Lispro 100 Unit/Ml 3 Ml Vial) 0 unit SUBCUT QIDACHS [facility]; Protocol Last Admin: 06/03/23 08:03 Dose: 6 unit Documented By: NICOLASA Lamotrigine (Lamotrigine 25 Mg Tablet) 150 mg PO BID [facility] Last Admin: 06/03/23 08:05 Dose: 150 mg Documented By: NICOLASA Loratadine (Loratadine 10 Mg Tablet) 10 mg PO DAILY [facility] Last Admin: 06/03/23 08:04 Dose: 10 mg Documented By: NICOLASA Metformin HCl (Metformin Hcl Er 500 Mg Tab.Er.24h) 500 mg PO DAILY [facility] Last Admin: 06/03/23 08:04 Dose: 500 mg Documented By: NICOLASA Methadone HCl (Methadone Hcl 20 Mg/2 Ml Oral.Conc) 50 mg PO DAILY [facility] Last Admin: 06/03/23 08:05 Dose: 50 mg Documented By: NICOLASA Methylprednisolone Sodium Succinate (Methylprednisolone Sod Succ 40 Mg/Ml Vial) 40 mg IVPUSH Q12H [facility] Last Admin: 06/03/23 08:05 Dose: 40 mg Documented By: NICOLASA Montelukast Sodium (Montelukast Sodium 10 Mg Tablet) 10 mg PO BEDTIME [facility] Last Admin: 06/02/23 21:20 Dose: 10 mg Documented By: ANTONINA Omeprazole (Omeprazole 40 Mg Capsule.Dr) 40 mg PO DAILY@0630 [facility] Last Admin: 06/03/23 06:18 Dose: 40 mg Documented By: CARIDAD Ondansetron HCl (Ondansetron Hcl 4 Mg/2 Ml Vial) 4 mg IVPUSH Q8H PRN PRN Reason: Nausea and Vomiting Polyethylene Glycol (Polyethylene Glycol 3350 17 Gm Powd.Pack) 17 gm PO DAILY [facility] Last Admin: 06/03/23 08:06 Dose: 17 gm Documented By: NICOLASA Roflumilast (Roflumilast 500 Mcg Tablet) 500 mcg PO DAILY [facility] Last Admin: 06/03/23 08:04 Dose: 500 mcg Documented By: NICOLASA Senna (Sennosides 8.6 Mg Tablet) 17.2 mg PO BEDTIME PRN PRN Reason: Constipation Zolpidem Tartrate (Zolpidem Tartrate 5 Mg Tablet) 5 mg PO BEDTIME PRN PRN Reason: Sleep Labs 06/03/23 08:29 06/03/23 08:29 Labs: Laboratory Results - last 24 hr 0306/02/23 06/02/23 11:34 16:05 20:28 MCV MCH MCHC RDW Plt Count MPV Absolute Nucleated RBC Nucleated RBC % (auto) VBG pH VBG pCO2 VBG pO2 VBG HCO3 VBG O2 Saturation VBG Base Excess Anion Gap Estim Creat Clear Calc Estimated GFR POC Glucose 314 H 312 H 207 H Random Glucose Calcium B-Natriuretic Peptide 06/03/23 06/03/23 06/03/23 06:54 08:29 08:34 MCV 96.0 MCH 31.0 MCHC 32.3 RDW 13.3 Plt Count 271 MPV 9.0 L Absolute Nucleated RBC 0.000 Nucleated RBC % (auto) 0.0 VBG pH 7.42 VBG pCO2 55 VBG pO2 98 VBG HCO3 36 H VBG O2 Saturation 98.0 VBG Base Excess 10.1 Anion Gap 14 Estim Creat Clear Calc 95.0 Estimated GFR > 60 POC Glucose 300 H Random Glucose 311 H Calcium 10.1 B-Natriuretic Peptide 53 Microbiology Microbiology Results: Microbiology 06/01/23 15:30 Blood Culture - Preliminary Blood - Venous No growth after 24 hours. 06/01/23 15:15 Blood Culture - Preliminary Blood - Venous No growth after 24 hours. Assessment and Plan (1) Acute exacerbation of chronic obstructive airways disease: Status: Acute Plan 53-year-old woman with a history of chronic respiratory failure, asthma, COPD overlap, CHITO presenting with worsening shortness of breath. History of frequent hospitalizations for respiratory failure. Acute on chronic hypoxic and hypercapnic respiratory failure bipap prn IV steroids, scheduled duonebs supplemental oxygen as needed doxycycline for bronchitis Hypertension stable blood pressure Continue lisinopril, hydralazine History of heart failure with preserved ejection fraction No exacerbation, continue furosemide, diltiazem Diabetes mellitus type 2 Sliding scale, Lantus at bedtime, metformin, mealtime insulin ADA diet Mental health Continue home medications Chronic opiate dependence Continue methadone Obesity. BMI 38.6 Discussed importance of weight management as this may be contributing to worsening of other comorbidities DVT prophylaxis with lovenox Attending Dr. Jones Full code DISPO dc home when medically clear continue hospital stay for treatment of acute hypoxic and hypercapnic respiratory failure requiring scheduled respiratory treatments and BiPAP. Patient is at risk for decompensation due to hx of resp failure and dependance on bipap Quality Stroke Does the patient have a stroke diagnosis?: No VTE Prior VTE?: No VTE Risk Level:: Medical - moderate - high VTE Device Contraindication: Treatment Not Indicated VTE Drug Contraindication: N/A - Med Ordered
[2023-06-03 11:28] LABS: Glucose, Whole Blood 264 mg/dL (60-115)
[2023-06-03 16:34] LABS: Glucose, Whole Blood 379 mg/dL (60-115)
[2023-06-03] MEDS: Enoxaparin Sodium 40 MG/0.4 ML SYRINGE SUBCUT (17:05)
[2023-06-03] MEDS: Atorvastatin Calcium 20 MG TABLET PO (20:26)
[2023-06-03] MEDS: Montelukast Sodium 10 MG TABLET PO (20:26)
[2023-06-03 20:27] LABS: Glucose, Whole Blood 259 mg/dL (60-115)
[2023-06-03] MEDS: Doxycycline Hyclate 100 MG in 0.9 % Sodium Chloride 250 ML 166.67 MG IV (20:28)
[2023-06-03] MEDS: Insulin Glargine,Hum.rec.anlog 100 UNIT/ML 10 ML VIAL 45 UNIT SUBCUT (20:40)
[2023-06-04] VITALS (7 sets, daily range): BP systolic 129–171; BP diastolic 81–87; PULSE 93–111; RESP 18–24; TEMP 36.2–36.9; O2SAT 92–97
[2023-06-04] MEDS: clonazePAM 1 MG TABLET PO (00:26)
[2023-06-04] MEDS: Albuterol/Iprat 2.5/0.5MG 3 ML AMPUL.NEB INHALE ×3 (00:57→11:47)
[2023-06-04] MEDS: Omeprazole 40 MG CAPSULE.DR PO (05:48)
[2023-06-04 07:30] LABS: Glucose, Whole Blood 213 mg/dL (60-115)
[2023-06-04] MEDS: methylPREDNISolone Sod Succ 40 MG/ML VIAL IVPUSH (08:44)
[2023-06-04] MEDS: Doxycycline Hyclate 100 MG in 0.9 % Sodium Chloride 250 ML 166.67 MG IV (08:44)
[2023-06-04] MEDS: Insulin Lispro 100 UNIT/ML 3 ML VIAL SUBCUT ×2 (08:44→11:52)
[2023-06-04] MEDS: methADONE HCl 20 MG/2 ML ORAL.CONC 50 MG PO (08:45)
[2023-06-04] MEDS: Furosemide 40 MG TABLET PO (08:45)
[2023-06-04] MEDS: Roflumilast 500 MCG TABLET PO (08:45)
[2023-06-04] MEDS: lamoTRIgine 25 MG TABLET 150 MG PO (08:45)
[2023-06-04] MEDS: Folic Acid 1 MG TABLET PO (08:46)
[2023-06-04] MEDS: metFORMIN HCl ER 500 MG TAB.ER.24H PO (08:46)
[2023-06-04] MEDS: acetaZOLAMIDE 250 MG TABLET PO (08:46)
[2023-06-04] MEDS: Gabapentin 300 MG CAPSULE PO (08:46)
[2023-06-04] MEDS: polyethylene glycoL 3350 17 GM POWD.PACK PO (08:46)
[2023-06-04] MEDS: hydrALAZINE HCl 25 MG TABLET PO ×2 (08:46→11:52)
[2023-06-04] MEDS: Loratadine 10 MG TABLET PO (08:46)
[2023-06-04] MEDS: dilTIAZem HCL CD 180 MG CAP.ER.24H 360 MG PO (08:46)
[2023-06-04] MEDS: Calcitonin,Salmon,Synth Nasal 3.7 ML BOTTLE 1 SPRAY NOSTRIL-B (08:47)
[2023-06-04 11:05] LABS: Glucose, Whole Blood 204 mg/dL (60-115)
--- NOTE | 2023-06-04 11:39 | P.DS_ITS ---
DS: Providers Provider Date of Service: 06/04/23 Date of admission: 06/03/23 09:12 Primary care physician: Kelli Benavides MD DS: Diagnosis Discharge Diagnosis (1) Acute exacerbation of chronic obstructive airways disease: Status: Acute DS: Summary Hospital Course Hospital Course: History of presenting illness: Date of Service: 06/01/23 Chief Complaint: Shortness of breath 53-year-old woman with a history of chronic hypoxic hypercapnic respiratory failure, sleep apnea, nocturnal BiPAP presented to the ER with complaints of 24 hours of increased shortness of breath and wheezing. She denied fever, chills, nausea, vomiting, recent illness, sick contacts. She has had multiple hospitalizations for this. Chest x-ray showing mild increased interstitial opacities with mildly enlarged cardiac silhouette. Blood gas with pH of 7.44/65/182/45, baseline for patient. Elevated white blood cell count with history of chronic steroid use, lactic acid 3.0 Patient was placed on BiPAP in the ER, started on doxycycline. Given albuterol and 1 L of IV fluid. Will admit patient for further management and treatment of acute on chronic respiratory failure. Hospital course: 53-year-old woman with a history of chronic respiratory failure, asthma, COPD overlap, CHITO presenting with worsening shortness of breath. History of frequent hospitalizations for respiratory failure. Acute on chronic hypoxic and hypercapnic respiratory failure, patient admitted to telemetry unit treated with IV steroids, DuoNeb updraft and nocturnal BiPAP patient responded well to above treatment, oxygenation stable on 2 L,strongly recommended to abstain from smoking and avoid allergens patient has a pet dog, recommend to continue Bactrim and prednisone patient takes 20 mg regularly and with acute exacerbation takes 30 mg. Mild right lower extremity redness likely mild cellulitis treated with doxy and will finish 7 day course of antibiotic Hypertension stable blood pressure ,Continue Cardizem and, hydralazine Diabetes mellitus type 2 noted to have hyperglycemia likely due to steroids recommend to continue Lantus diabetic diet and metformin Mood disorder recommend to continue home medications. Chronic opiate dependence on methadone Class 2 Obesity. BMI 38.6 recommended low-calorie diet and discussed importance of weight management as this may be contributing to worsening of other comorbidities. Time Attestation Discharge Coordination Time (in mins): 35 Quality: Safe Use of Opioids Does Pt have an Active Cancer Diagnosis on the Problem List?: No Quality: Stroke Does the patient have a stroke diagnosis?: No Physical Exam Vital Signs: Vital Signs: Last Vital Signs Temp 98.4 F 06/04/23 07:08 Pulse 110 H 06/04/23 07:30 Resp 20 06/04/23 07:30 BP 129/87 06/04/23 07:08 Pulse Ox 95 06/04/23 07:08 O2 Del Method CPAP 06/04/23 07:08 O2 Flow Rate 2 06/04/23 03:40 FiO2 25 06/02/23 15:31 Oxygen Flow Rate 2 06/01/23 14:07 BMI result Body Mass Index 38.6 Const: Other: General: awake alert x3, sitting comfortably in no acute distress. Neck: no JVD Anicteric sclera Resp: Diminished sounds bilaterally, prolonged expiration, few expiratory wheeze,no crackles CVS: S1,S2,RRR GI: abdomen soft, non tender, bowel sounds audible. Skin: No rash Extremities right lower extremity mild diffuse hyperemia and chronic edema unchanged. Neuro: motor grossly intact Psych: appropriate affect DS: Data Data Completed and Pending Completed studies during hospitalization [Text1]: Procedures Assistance with Respiratory Ventilation, 24-96 Consecutive Hours, Continuous Positive Airway Pressure (02/21/23) Assistance with Respiratory Ventilation, Less than 24 Consecutive Hours, Continuous Positive Airway Pressure (04/07/23) Insertion of Endotracheal Airway into Trachea, Via Natural or Artificial Opening (12/21/22) Insertion of Infusion Device into Right Atrium, Percutaneous Approach (12/21/21) Insertion of Infusion Device into Right Brachial Vein, Percutaneous Approach (07/28/22) Insertion of Infusion Device into Superior Vena Cava, Percutaneous Approach (12/21/22) Insertion of Infusion Device into Upper Vein, Percutaneous Approach (02/21/23) Introduction of Vasopressor into Peripheral Vein, Percutaneous Approach (12/21/21) Respiratory Ventilation, 24-96 Consecutive Hours (12/21/22) Ultrasonography of Superior Vena Cava, Guidance (12/21/22) Labs on day of discharge: Laboratory Results - last 24 hr 06/03/23 06/03/23 06/04/23 16:04 20:24 07:11 POC Glucose 379 H* 259 H 213 H 06/04/23 11:01 POC Glucose 204 H Preliminary micro results at discharge 06/01/23 15:30 Blood Culture - Preliminary Blood - Venous No growth after 48 hours. 06/01/23 15:15 Blood Culture - Preliminary Blood - Venous No growth after 48 hours. Discharge Plan Discharge Anticipated Discharge Date/Time: 06/04/23 10:33 Patient Disposition: Home Health Service Discharge Diagnosis: acute copd exacerbation Referrals: Kelli Benavides MD [Primary Care Provider] - 1 Week Discharge Medications: New doxycycline hyclate 100 mg capsule 100 mg PO DAILY Qty: 14 0RF Continued ipratropium-albuterol 0.5 mg-3 mg(2.5 mg base)/3 mL solution for nebulization 3 ml PO Q4H PRN (Reason: for wheezing) Qty: 540 6RF gabapentin 300 mg capsule 300 mg PO BID Qty: 60 11RF albuterol sulfate [ProAir HFA] 90 mcg/actuation HFA aerosol inhaler 2 puff inhalation Q4H PRN (Reason: Shortness Of Breath Or Wheezing) Qty: 1 0RF omeprazole 40 mg capsule,delayed release(DR/EC) 40 mg PO DAILY@0630 30 Days Qty: 30 6RF furosemide 20 mg tablet 40 mg PO DAILY 90 Days Qty: 180 0RF prednisone 10 mg tablet 30 mg PO DAILY 30 Days Qty: 90 3RF diltiazem HCl [Tiadylt ER] 360 mg capsule,extended release 24 hr 360 mg PO DAILY rosuvastatin 5 mg tablet 5 mg PO BEDTIME roflumilast [Daliresp] 500 mcg tablet 500 mcg PO DAILY metformin 500 mg tablet extended release 24 hr 500 mg PO DAILY hydralazine 25 mg tablet 25 mg PO TIDWM insulin lispro 100 unit/mL solution 4 unit subcut TIDAC PRN (Reason: Hyperglycemia) Rx Instructions: per sliding scale methadone 10 mg/mL Concentrate 50 mg PO DAILY Patient Comments: [facility]IC[facility] AND ADMINISTERS lamotrigine 150 mg tablet 150 mg PO BID calcitonin (salmon) 200 unit/actuation spray,non-aerosol 1 spray intranasal DAILY Rx Instructions: one nostril every day, alternate sides. insulin glargine [Lantus U-100 Insulin] 100 unit/mL solution 45 unit subcut BEDTIME docusate sodium 100 mg capsule 100 mg PO BID PRN (Reason: constipation) acetazolamide 250 mg tablet 250 mg PO DAILY clonazepam 1 mg tablet 1 mg PO BID PRN (Reason: Anxiety) polyethylene glycol 3350 [Miralax] 17 gram/dose powder 17 g PO DAILY ammonium lactate 12 % lotion 1 appl topical DAILY sulfamethoxazole-trimethoprim 400-80 mg tablet 1 tab PO DAILY zolpidem 5 mg tablet 5 mg PO BEDTIME PRN (Reason: Sleep) Rx Instructions: use with 100% BIPAP compliance only diclofenac sodium 1 % gel 4 g TOPICAL QID PRN (Reason: Pain) cholecalciferol (vitamin D3) 1,250 mcg (50,000 unit) capsule 1,250 mcg PO 2XW lidocaine 5 % adhesive patch,medicated 1 patch topical QAM PRN (Reason: Pain) montelukast 10 mg tablet 10 mg PO BEDTIME loratadine [Claritin] 10 mg tablet 10 mg PO DAILY (DME) compress.stocking,knee,reg,med Misc See Rx Instructions .Route Qty: 2 0RF Rx Instructions: 15-20 cm arformoterol [Brovana] 15 mcg/2 mL solution for nebulization 2 ml inhalation Q12H 30 Days Qty: 120 11RF budesonide 0.5 mg/2 mL suspension for nebulization 0.5 mg inhalation BID Qty: 120 11RF tiotropium bromide [Spiriva with HandiHaler] 18 mcg capsule, w/inhalation device 1 cap inhalation DAILY Qty: 30 11RF (DME) nebulizers Misc See Rx Instructions .ROUTE Rx Instructions: As directed folic acid 1 mg tablet 1 mg PO DAILY 30 Days Qty: 30 6RF Discharge Orders: Discharge Order (Routine); Ordered 06/04/23 Ordered By: Vel Ramires Diet: Diabetic diet Activity on Discharge: As tolerated Stand Alone Forms: Patient Portal Discharge page Care Plan Goals: Strongly recommend to abstain from smoking avoid allergens Continue prednisone 20 mg and 30 mg for worsening symptoms Continue all home medications Health Concerns: Continue all home medications as before follow diabetic diet Plan of Treatment: Outpatient follow-up with primary care physician and surgical services director Dr. Brito call for appointment Assessment: as above Discharge Date/Time: 06/04/23 13:00
[2023-06-04 11:42] LABS: Glucose, Whole Blood 209 mg/dL (60-115)
--- NOTE | 2023-06-04 12:31 | MHC.CM.PN ---
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 Pt has arranged for her own transportation home.
== END 2023-06-04 13:00 | disposition home health service (06) | DRG 140 ==
LOC: HO.ED 16:55 → HO.EDOVER 19:08 → HO.IMC 06-02 02:18
PROVIDERS: Nurse Practitioner Acute Care; Admitting Provider Physician Assistant; Emergency Provider Emergency Medicine; PCP Family Medicine; Visit Provider Hospitalist
DX: J44.1 Chronic obstructive pulmonary disease with (acute) exacerbation (principal); J96.21 Acute and chronic respiratory failure with hypoxia; I50.32 Chronic diastolic (congestive) heart failure; I11.0 Hypertensive heart disease with heart failure; Z99.81 Dependence on supplemental oxygen; E11.65 Type 2 diabetes mellitus with hyperglycemia; E66.09 Other obesity due to excess calories; L03.115 Cellulitis of right lower limb; F39 Unspecified mood [affective] disorder; Z71.3 Dietary counseling and surveillance; G47.33 Obstructive sleep apnea (adult) (pediatric); J96.22 Acute and chronic respiratory failure with hypercapnia; Z68.38 Body mass index [BMI] 38.0-38.9, adult; F11.20 Opioid dependence, uncomplicated; Z20.822 Contact with and (suspected) exposure to COVID-19; Z87.891 Personal history of nicotine dependence; Z79.4 Long term (current) use of insulin; Z79.899 Other long term (current) drug therapy
CPT/HCPCS: 0241U; 36415; 71045; 80048; 80053; 80307; 81003; 82803; 82947; 83605; 83880; 84484; 85025; 85027; 87040; 93005; 94640; 94660; 99285; J1650; J2920

== ENCOUNTER → 2023-06-01 14:14 | Outpatient (BNV) | payer MEDICAID, SELFPAY | PROVIDERS: Admitting Provider Physician Assistant; Emergency Provider Emergency Medicine; PCP Family Medicine; Visit Provider Internal Medicine | DX: R06.00 Dyspnea, unspecified (principal) | CPT/HCPCS: 93010 ==

== ENCOUNTER → 2023-06-01 18:53 | Outpatient (BNV) | payer MEDICAID, SELFPAY | PROVIDERS: Admitting Provider Physician Assistant; Emergency Provider Emergency Medicine; PCP Family Medicine; Visit Provider Nurse Practitioner Acute Care | DX: J44.1 Chronic obstructive pulmonary disease with (acute) exacerbation (principal) | CPT/HCPCS: 99223; 99232; 99239 ==

== ENCOUNTER 2023-06-05 14:32 | Inpatient (IN) | payer MEDICAID, SELFPAY ==
[2023-06-05] VITALS (8 sets, daily range): BP systolic 139–182; BP diastolic 69–140; PULSE 94–121; RESP 12–25; TEMP 36–36.4; O2SAT 90–100; BMI 40.7
--- NOTE | ~2023-06-05 | US_ITS ---
EXAMINATION: US VENOUS ULTRASOUND WITH DOPPLER LOWER EXTREMITY, RIGHT CLINICAL INFORMATION: Right lower extremity swelling. COMPARISON: None available. TECHNIQUE: Ultrasound of the deep veins is performed from the hip to the calf with compression sonography and color and pulse Doppler assessment. Spectral analysis with color-flow imaging is performed. FINDINGS: There is normal venous compression and respiratory variation and augmented flow. The visualized common femoral vein, superficial femoral vein, profunda femoral vein, popliteal vein, and the trifurcation region shows no evidence of deep venous thrombosis. The posterior tibial and peroneal veins are not well visualized. There is no significant popliteal fossa cyst. If the patient's symptoms persist, followup ultrasound in 5 days 7 days might be of value to exclude proximal propagation from a non-visualized calf vein. US/US venous duplex LE RT IMPRESSION: No DVT demonstrated in the right lower extremity.
--- NOTE | ~2023-06-05 | XR_ITS ---
EXAMINATION: XR CHEST CLINICAL INFORMATION: SOB COMPARISON: None available. TECHNIQUE: Frontal view of the chest was obtained. FINDINGS: No significant abnormality is noted involving the heart, lungs, mediastinum, bony thorax or soft tissues. XR/XR chest 1V IMPRESSION: Unremarkable chest examination.
--- NOTE | 2023-06-05 14:44 | ED_ITS ---
HPI - General Adult General Chief complaint: Dyspnea Stated complaint: SOB Time Seen by Provider: 06/05/23 14:44 Source: patient, EMS and [employer] Mode of arrival: EMS Limitations: language barrier History of Present Illness HPI narrative: Patient is a 53 year old assigned female at with a history of chronic hypoxic hypercapnic respiratory failure due to COPD/Asthma on 2 liters of oxygen at baseline, DM, HTN, HLD, and chronic methadone use presenting to the emergency department today with increased shortness of breath / difficulty breathing. Patient states that she was discharged from the hospital yesterday and today she began to have worsening shortness of breath. Patient denies any dizziness, lightheadedness, abdominal pain, nausea, vomiting, fever, chills, blurry vision, double vision, loss of vision, chest pain, back pain, night sweats, pain with urination, increased urinary frequency, increased urinary urgency, blood in her urine or stool, syncope or a near syncopal episode, recent trauma or falls, bowel incontinence, bladder incontinence, bowel retention, bladder retention, or any other complaints at this time. Onset (ago): day(s) (1) Severity: moderate Severity scale (1-10): 5 Relieving factors: none Exacerbating factors: none Associated symptoms: shortness of breath Related Data Home Medications Medication Instructions Recorded Confirmed loratadine 10 mg tablet (Claritin) 10 mg PO DAILY 12/30/19 06/01/23 montelukast 10 mg tablet 10 mg PO BEDTIME 12/30/19 06/01/23 diltiazem HCl 360 mg capsule,24 360 mg PO DAILY 11/16/20 06/01/23 hr,extended release (Tiadylt ER) roflumilast 500 mcg tablet 500 mcg PO DAILY 11/16/20 06/01/23 (Daliresp) rosuvastatin 5 mg tablet 5 mg PO BEDTIME 11/16/20 06/01/23 metformin 500 mg tablet,extended 500 mg PO DAILY 05/18/21 06/01/23 release 24 hr methadone 10 mg/mL oral concentrate 50 mg PO DAILY 06/06/21 06/02/23 hydralazine 25 mg tablet 25 mg PO TIDWM 11/02/21 06/01/23 insulin lispro 100 unit/mL 4 unit subcut TIDAC PRN 11/02/21 06/01/23 subcutaneous solution Hyperglycemia clonazepam 1 mg tablet 1 mg PO BID PRN Anxiety 06/28/22 06/01/23 lamotrigine 150 mg tablet 150 mg PO BID 07/29/22 06/01/23 calcitonin (salmon) 200 1 spray intranasal DAILY 09/30/22 06/01/23 unit/actuation nasal spray insulin glargine 100 unit/mL 45 unit subcut BEDTIME 09/30/22 06/01/23 subcutaneous solution (Lantus U-100 Insulin) docusate sodium 100 mg capsule 100 mg PO BID PRN constipation 10/20/22 06/01/23 nebulizers 11/08/22 04/08/23 polyethylene glycol 3350 17 17 g PO DAILY constipation 12/21/22 06/01/23 gram/dose oral powder (Miralax) ammonium lactate 12 % lotion 1 appl topical DAILY Rash 02/02/23 06/01/23 sulfamethoxazole 400 1 tab PO DAILY 04/08/23 06/01/23 mg-trimethoprim 80 mg tablet diclofenac sodium 1 % topical gel 4 g topical QID PRN Pain 05/04/23 06/01/23 zolpidem 5 mg tablet 5 mg PO BEDTIME PRN Sleep 05/04/23 06/01/23 cholecalciferol (vitamin D3) 1,250 1,250 mcg PO 2XW 05/19/23 06/01/23 mcg (50,000 unit) capsule lidocaine 5 % topical patch 1 patch topical QAM PRN Pain 05/19/23 06/01/23 acetazolamide 250 mg tablet 250 mg PO DAILY 06/01/23 06/01/23 Previous Rx's Medication Instructions Recorded folic acid 1 mg tablet 1 mg PO DAILY 30 days #30 tabs 12/19/22 gabapentin 300 mg capsule 300 mg PO BID #60 caps 01/14/23 albuterol sulfate 90 mcg/actuation 2 puff inhalation Q4H PRN 02/19/23 aerosol inhaler (ProAir HFA) Shortness Of Breath Or Wheezing #1 ea arformoterol 15 mcg/2 mL solution 2 ml inhalation Q12H 30 days #120 02/20/23 for nebulization (Brovana) mL budesonide 0.5 mg/2 mL suspension 0.5 mg (2 mL) inhalation BID #120 02/20/23 for nebulization mL compress.stocking,knee,reg,med #2 ea 02/20/23 tiotropium bromide 18 mcg capsule 1 cap inhalation DAILY #30 ea 02/20/23 with inhalation device (Spiriva with HandiHaler) omeprazole 40 mg capsule,delayed 40 mg PO DAILY@0630 30 days #30 03/31/23 release caps furosemide 20 mg tablet 40 mg (2 x 20 mg) PO DAILY 90 days 05/06/23 #180 tabs prednisone 10 mg tablet 30 mg (3 x 10 mg) PO DAILY 30 days 05/12/23 #90 tabs doxycycline hyclate 100 mg capsule 100 mg PO DAILY #14 caps 06/04/23 ipratropium 0.5 mg-albuterol 3 mg 3 ml PO Q4H PRN for wheezing #540 06/05/23 (2.5 mg base)/3 mL nebulization mL soln Allergies Allergy/AdvReac Type Severity Reaction Status Date / Time No Known Allergies Allergy Verified 05/03/23 16:24 [No Known Allergies*] Review of Systems Constitutional: Constitutional: Reports no additional constitutional complaints, Denies chills, Denies fever(s) and Denies night sweats Eyes: Eyes: Reports no additional eye complaints, Denies blurry vision, Denies change in vision, Denies diplopia, Denies eye discharge, Denies loss of vision and Denies eye pain ENT: Denies dizziness Cardiovascular: Cardiovascular: Reports no additional cardiovascular complaints, Denies chest pain, Denies lightheadedness, Denies Loss of Consciousness and Reports dyspnea Respiratory: Respiratory: Reports no additional respiratory complaints and Reports dyspnea Gastrointestinal: Gastrointestinal: Reports no additional gastrointestinal complaints, Denies abdominal pain, Denies melena, Denies hematochezia, Denies change in bowel habits and Denies change in stool character Genitourinary: Genitourinary: Denies hematuria, Denies urinary frequency, Denies dysuria, Denies urinary incontinence, Denies urinary hesitancy and Denies urinary urgency Musculoskeletal: Musculoskeletal: Reports no additional musculoskeletal complaints, Denies numbness and Denies tingling Neurologic: Denies dizziness, Denies loss of vision, Denies numbness and Denies tingling Psychiatric: Psychiatric: Reports no additional psychiatric complaints Endocrine: Endocrine: Reports no additional endocrine complaints Hematologic/Lymphatic: Hematologic/Lymphatic: Reports no additional hematologic/lymphatic complaints Allergic/Immunologic: Allergic/Immunologic: Reports no additional allergic/ immunologic complaints PMFSH Past Medical History Attestation statement: The following information was validated with the patient. Source: old records reviewed and nursing notes reviewed Medical History Type 2 diabetes mellitus Opioid dependence Constipation Salmonella gastroenteritis CHITO (obstructive sleep apnea) Obesity with alveolar hypoventilation Congestive heart failure Chronic constipation Acute respiratory failure Hypertensive cardiovascular disease Pulmonary nodule Chronic respiratory failure Tobacco abuse Asthma-COPD overlap syndrome Hyperlipidemia, unspecified Essential hypertension Chronic respiratory failure Surgical History H/O tubal ligation Family History Family History Father Diabetes Other Asthma Social History Social History Household Members: Children Household Members Other:: daughter Housing: Apartment Do you presently have visiting nurse or other home services: Yes Unable to assess alcohol history related to: Unknown Alcohol intake: former Comment: patient refusing bed alarm Patient Tobacco Use Status: Former Tobacco user Quit Date: February 2022 Tobacco use type: Cigarette Cigarettes Per Day: 1 Years Smoked: 35 e-Cigarette/Vaping Use: Currently Using Second Hand Smoke Exposure: No Substance Use Type: Opiates Advance Directives Date on File: 06/12/21 service: No Current occupational status: unemployed and disabled Physical Exam ED Vital Signs: Vital Signs - 24 hr 06/05/23 14:39 06/05/23 14:51 Temperature 97.6 F Pulse Rate 121 H Respiratory Rate 25 H 12 Blood Pressure 168/98 H Pulse Oximetry 96 Oxygen Delivery Method CPAP Fraction of Inspired Oxygen 25 BMI result Body Mass Index 40.7 Const General: cooperative, no acute distress, alert and awake Nutritional Appearance: well nourished Orientation/consciousness: patient oriented x3 Limitations: no limitations HENMT Head: Yes normal to inspection and Yes atraumatic Ears: hearing grossly normal bilaterally and external ears normal General nose exam: Normal external nose present, no nasal discharge noted and no epistaxis Face and sinus: Yes normal facial exam, No abrasion and No laceration Mouth: Normal oral and palatal mucosa present, no drooling and no muffled voice Eyes General: appearance normal, both eyes and all related structures Periorbital: periorbital findings normal Eyelids: Yes eyelids normal Conjunctivae: conjunctivae normal Pupils: Equal, round and reactive pupils present EOM: EOMs intact bilaterally Neck Neck: Yes normal visual inspection, Yes full ROM and Yes no lymphadenopathy Chest Chest palpation & inspection: normal inspection of the chest Resp Effort & Inspection: labored Auscultation: wheezes scattered wheezes Cardio Rate: tachycardic Rhythm: regular rhythm GI Inspection: Yes normal to inspection Neuro General: patient oriented x3 and moves all extremities Cranial nerves: Yes Equal, round and reactive pupils present Cognition (Neuro): normal cognition Motor exam (neuro): 5/5 motor strength present throughout Sensory Exam: Normal double simultaneous stimulation for sensation Coordination: [id number] test normal Extrem General: Yes normal to inspection, Yes full ROM and Yes capillary refill normal Psych Appearance: grossly normal Mental Status: mental status grossly normal Affect: normal affect Attitude: cooperative Thought process: Normal thought process present Thought content: Normal thought content present Insight: Good insight present (Psych) Medical Decision Making Medical Decision Making MDM Narrative: Patient is a 53 year old assigned female at with a history of chronic hypoxic hypercapnic respiratory failure due to COPD/Asthma on 2 liters of oxygen at baseline, DM, HTN, HLD, and chronic methadone use presenting to the emergency department today with increased shortness of breath. Patient's physical exam was as noted in the physical exam portion of this note. Patient initially satting 82% on her 2liters of oxygen via nasal cannula. Patient was started on bipap and is up to 100% presently. Patient's blood work is pending at this time - blood draw delayed significantly secondary to the patient being a very difficult stick. Patient's urine is pending. Patient's EKG was unremarkable. Patient's chest x-ray is pending. I explained my physical exam findings as well as all test results to the patient. I answered all questions asked by the patient. Patient will likely be admitted after work up is complete and the patient is weened off of rescue bipap. Patient signed out to evening DON. Differential Diagnosis Differential Diagnoses: The differential diagnosis associated with the presentation includes Asthma exacerbation Respiratory distress Respiratory arrest Difficulty breathing COPD COVID-19 RSV Influenza Admission/Observation Consideration of admission/observation: Escalation of care including admission/observation considered Patient will likely be admitted by evening DON after work up is completed. Independent Interpretation I performed an independent interpretation of an: EKG Interpretation: Vent. Rate: 112 BPM Atrial Rate: 112 BPM P-R Int: 130 ms QRS Dur: 104 ms QT Int: 360 ms P-R-T Axes: 051 008 044 degrees QTc Int: 491 ms Sinus tachycardia Incomplete right bundle branch block Inferior infarct (cited on or before 01-JUN-2023) Abnormal ECG When compared with ECG of 01-JUN-2023 15:02, No significant change was found DD/ 1502 Independent Historian Clinical information obtained from an independent historian. History obtained from or confirmed by: EMS (EMS provided additional history and confirmed the history provided by the patient.) Chronic Conditions Patient?s care impacted by: Diabetes and Other (COPD) Critical Care Time Critical Care Time Critical Care Time: Yes Total Critical Care Time: 55 Attestation: I spent 55 minutes of Critical Care Time with this patient. This does not include time spent on separately reported billable procedures. Discharge Plan Discharge Clinical Impression: Acute respiratory distress, Asthma exacerbation Patient Disposition: Still a Patient Prescriptions: No Action gabapentin 300 mg capsule 300 mg PO BID Qty: 60 11RF albuterol sulfate [ProAir HFA] 90 mcg/actuation HFA aerosol inhaler 2 puff inhalation Q4H PRN (Reason: Shortness Of Breath Or Wheezing) Qty: 1 0RF omeprazole 40 mg capsule,delayed release(DR/EC) 40 mg PO DAILY@0630 30 Days Qty: 30 6RF furosemide 20 mg tablet 40 mg PO DAILY 90 Days Qty: 180 0RF prednisone 10 mg tablet 30 mg PO DAILY 30 Days Qty: 90 3RF ipratropium-albuterol 0.5 mg-3 mg(2.5 mg base)/3 mL solution for nebulization 3 ml PO Q4H PRN (Reason: for wheezing) Qty: 540 6RF diltiazem HCl [Tiadylt ER] 360 mg capsule,extended release 24 hr 360 mg PO DAILY rosuvastatin 5 mg tablet 5 mg PO BEDTIME roflumilast [Daliresp] 500 mcg tablet 500 mcg PO DAILY metformin 500 mg tablet extended release 24 hr 500 mg PO DAILY hydralazine 25 mg tablet 25 mg PO TIDWM insulin lispro 100 unit/mL solution 4 unit subcut TIDAC PRN (Reason: Hyperglycemia) Rx Instructions: per sliding scale methadone 10 mg/mL Concentrate 50 mg PO DAILY Patient Comments: [facility] lamotrigine 150 mg tablet 150 mg PO BID calcitonin (salmon) 200 unit/actuation spray,non-aerosol 1 spray intranasal DAILY Rx Instructions: one nostril every day, alternate sides. insulin glargine [Lantus U-100 Insulin] 100 unit/mL solution 45 unit subcut BEDTIME docusate sodium 100 mg capsule 100 mg PO BID PRN (Reason: constipation) acetazolamide 250 mg tablet 250 mg PO DAILY doxycycline hyclate 100 mg capsule 100 mg PO DAILY Qty: 14 0RF clonazepam 1 mg tablet 1 mg PO BID PRN (Reason: Anxiety) polyethylene glycol 3350 [Miralax] 17 gram/dose powder 17 g PO DAILY ammonium lactate 12 % lotion 1 appl topical DAILY sulfamethoxazole-trimethoprim 400-80 mg tablet 1 tab PO DAILY zolpidem 5 mg tablet 5 mg PO BEDTIME PRN (Reason: Sleep) Rx Instructions: use with 100% BIPAP compliance only diclofenac sodium 1 % gel 4 g TOPICAL QID PRN (Reason: Pain) cholecalciferol (vitamin D3) 1,250 mcg (50,000 unit) capsule 1,250 mcg PO 2XW lidocaine 5 % adhesive patch,medicated 1 patch topical QAM PRN (Reason: Pain) montelukast 10 mg tablet 10 mg PO BEDTIME loratadine [Claritin] 10 mg tablet 10 mg PO DAILY (DME) compress.stocking,knee,reg,med Misc See Rx Instructions .Route Qty: 2 0RF Rx Instructions: 15-20 cm arformoterol [Brovana] 15 mcg/2 mL solution for nebulization 2 ml inhalation Q12H 30 Days Qty: 120 11RF budesonide 0.5 mg/2 mL suspension for nebulization 0.5 mg inhalation BID Qty: 120 11RF tiotropium bromide [Spiriva with HandiHaler] 18 mcg capsule, w/inhalation device 1 cap inhalation DAILY Qty: 30 11RF (DME) nebulizers Misc See Rx Instructions .ROUTE Rx Instructions: As directed folic acid 1 mg tablet 1 mg PO DAILY 30 Days Qty: 30 6RF
--- NOTE | 2023-06-05 14:46 | ECG_ITS ---
Test Reason : DYSPNEA Blood Pressure : / mmHG Vent. Rate : 112 BPM Atrial Rate : 112 BPM P-R Int : 130 ms QRS Dur : 104 ms QT Int : 360 ms P-R-T Axes : 051 008 044 degrees QTc Int : 491 ms Sinus tachycardia Incomplete right bundle branch block Inferior infarct (cited on or before 01-JUN-2023) Abnormal ECG When compared with ECG of 01-JUN-2023 15:02, No significant change was found Referred By: Isa Mahmood Electronically Signed By:RONALD SCHAFER
[2023-06-05 16:03] LABS: MANUAL DIFF FLAG NO
[2023-06-05 16:04] LABS: VBG Base Excess 9.8 mmol/L; VBG HCO3 40 mmol/L (22-26); VBG pCO2 83 mmHg; VBG pH 7.28 (7.32-7.43); VBG pO2 67 mmHg
[2023-06-05 16:04] LABS: Venous Blood Gas Refer to POC result
[2023-06-05] MEDS: methylPREDNISolone Sod Succ 125 MG/2 ML VIAL 60 MG IVPUSH (16:06)
[2023-06-05 16:07] LABS: Basophils Absolute Auto 0.1 X10*3/uL (0.0-0.2); Basophils Percent Auto 0.2 % (0-2); Eosinophils Absolute Auto 0.1 X10*3/uL (0.0-0.4); Eosinophils Percent Auto 0.2 % (0-4); Hematocrit 38.1 % (37.0-47.0); Imm Gran Abs Auto 0.31 X10*3/uL (0.00-0.03); Imm Gran Pct Auto 1.5 % (0.0-0.4); Lymphocytes Percent Auto 5.1 % (20-40); Mean Corpuscular HGB Conc 31.5 g/dl (31.0-35.0); Mean Corpuscular Hemoglobin 31.3 pg (27.0-33.0); Mean Corpuscular Volume 99.2 fL (80.0-98.0); Monocytes Percent Auto 4.8 % (2-11); NRBC Pct Auto 0.3 /100WBC (0.0-0.2); Neutrophils Absolute Auto 17.9 x10*3/uL (2.0-8.3); Neutrophils Percent Auto 88.2 % (45-73); Platelet Count 312 X10*3/uL (160-400); Red Blood Count 3.84 X10*6/uL (4.20-5.50); Red Cell Distribution Width 13.7 % (11.0-16.0); White Blood Count 20.3 X10*3/uL (4.8-10.8)
[2023-06-05] MEDS: Magnesium Sulfate/D5W 1 GM/100 ML PIGGYBACK IV (16:11)
[2023-06-05 16:14] LABS: Lactic Acid 1.3 mmol/L (0.5-2.0)
[2023-06-05 16:18] LABS: Alanine Aminotransferase 22 U/L (0-31); Albumin Level 3.9 g/dL (3.5-5.0); Alkaline Phosphatase 46 U/L (39-117); Anion Gap 12 (12-20); Aspartate Amino Transferase 16 U/L (5-31); Bilirubin Total 0.2 mg/dL (0.0-1.0); Blood Urea Nitrogen 25 mg/dL (9-16); Carbon Dioxide 36 mmol/L (22-29); Chloride 97 mmol/L (96-108); Creatinine Clr Calc Pharmacy 95.8; Estimated Glomerular Filt Rate > 60; Glucose Random 346 mg/dL (60-115); Magnesium 1.6 mg/dL (1.6-2.6); Potassium 3.8 mmol/L (3.3-5.1); Sodium 141 mmol/L (135-145); Total Protein 6.7 g/dL (6.5-8.0)
[2023-06-05 16:25] LABS: Troponin-I High Sensitivity 9.8 ng/L (<3.5-17.0)
[2023-06-05 16:29] LABS: INTERNATIONAL NORM RATIO 0.8 (0.9-1.1); Prothrombin Time 10.3 SEC (11.1-13.3)
[2023-06-05 16:32] LABS: Partial Thromboplastin Time 19.6 SEC (26.0-36.8)
[2023-06-05 16:40] LABS: Influenza A PCR NEGATIVE (Negative); Influenza B PCR NEGATIVE (Negative); Resp Syncy Virus RNA Qual PCR NEGATIVE (Negative); SARS COV2 PCR INHOUSE NEGATIVE (Negative)
--- NOTE | 2023-06-05 16:54 | PHA.MEDREC ---
Pharmacy Consult ? Medication Reconciliation Pharmacy has completed the medication reconciliation. Patient discharged yesterday on 06/04/23, utlizided discharge summary for med rec. Jyoti Camacho, [place]
[2023-06-05 19:26] LABS: Appearance Urine Clear; Color Urine Yellow; Glucose Urine UA >=1000 mg/dL (Negative); Leukocyte Esterase Urine Negative (Negative); Nitrite Urine Negative (Negative); PH 5.5 (5.0-9.0); UMIC TRIGGER UACC YES; Urine Blood Negative (Negative); Urine Ketones Negative (Negative); Urine Protein Negative (Neg-Trace)
[2023-06-05 19:40] LABS: Bacteria Urine None Seen (None Seen); Hyaline Casts Urine 0-2 /LPF (0-2); RBC Urine 0-2 /HPF (0-2); Squamous Epithelial Cell Urine 0-2 /HPF (0-2); WBC Urine 0-5 /HPF (0-5)
--- NOTE | 2023-06-05 20:00 | PC.NURSE ---
This sql report writer assumed care of this Pt at 1900. Pt denies any pain. Pt on BiPap, SpO2 99%.
[2023-06-05 21:21] LABS: Venous Blood Gas Refer to POC result
[2023-06-05 21:21] LABS: VBG Base Excess 15.5 mmol/L; VBG HCO3 42 mmol/L (22-26); VBG pCO2 60 mmHg; VBG pH 7.45 (7.32-7.43); VBG pO2 144 mmHg
[2023-06-05] MEDS: Albuterol/Iprat 2.5/0.5MG 3 ML AMPUL.NEB INHALE ×2 (21:21→23:40)
--- NOTE | 2023-06-05 21:34 | P.HPHOSP_ITS ---
History of Present Illness Date of Service: 06/05/23 Attending physician on admission: Rhina Plasencia Chief Complaint: Shortness on breath Anju Larios is a 53 years old woman with past medical history significant for chronic hypoxic and hypercapnic respiratory failure/COPD -on home oxygen 2L/min, HFpEF,morbid obesity, obstructive sleep apnea on BiPAP, type 2 diabetes mellitus, essential hypertension and hyperlipidemia presents to the emergency department complaining of worsening shortness of breath since last night associated with somnolence, wheezing, cough and nausea. She denied any associated chest pain, abdominal pain, vomiting, fevers or chills. Patient was recently discharged from the hospital due to acute on chronic respiratory failure. She also was treated with a course of doxycycline for right lower extremity cellulitis. In the ED, she was found to have tachypnea and tachycardia. She was placed on rescue BiPAP. Her initial venous gas showed mild respiratory acidosis. Venous gas was repeated after trial with rescue BiPAP and showed pH of 7.45, pCO2 60 which is around her baseline. She is currently requiring 2 L/min supplemental oxygen. Blood workup showed marked leukocytosis, 20.3. Elevated CO2 36. Renal function is adequate. LFTs lactic acid are normal. Troponin is 9.8. CXR showed no acute cardiopulmonary disease. ECG showed sinus tachycardia incomplete right bundle-branch block. ED tx: Magnesium 1 g IV, Solu-Medrol 60 mg IV. Review of Systems 2 Review of Systems: All 12 systems were reviewed and normal except as noted in HPI. [facility] Medical History (Updated 06/05/23 @ 23:04 by Rhina Plasencia MD) Type 2 diabetes mellitus Opioid dependence Constipation Salmonella gastroenteritis CHITO (obstructive sleep apnea) Obesity with alveolar hypoventilation Congestive heart failure Chronic constipation Acute respiratory failure Hypertensive cardiovascular disease Pulmonary nodule Chronic respiratory failure Tobacco abuse Asthma-COPD overlap syndrome Hyperlipidemia, unspecified Essential hypertension Chronic respiratory failure Family History Father Diabetes Other Asthma Surgical History H/O tubal ligation Social History Household Members: Children Household Members Other:: daughter Housing: Apartment Do you presently have visiting nurse or other home services: Yes Unable to assess alcohol history related to: Unknown Alcohol intake: former Comment: patient refusing bed alarm Patient Tobacco Use Status: Former Tobacco user Quit Date: February 2022 Tobacco use type: Cigarette Cigarettes Per Day: 1 Years Smoked: 35 e-Cigarette/Vaping Use: Currently Using Second Hand Smoke Exposure: No Substance Use Type: Opiates Advance Directives: Yes Advance Directives on File: Yes Advance Directives Date on File: 06/12/21 service: No Current occupational status: unemployed and disabled Meds Allergies Allergy/AdvReac Type Severity Reaction Status Date / Time No Known Allergies Allergy Verified 05/03/23 16:24 [No Known Allergies*] Active Medications: Current Medications Acetaminophen (Acetaminophen 325 Mg Tablet) 650 mg PO Q6H PRN PRN Reason: Pain, Mild (Pain Scale 1-3) Albuterol/Ipratropium (Albuterol/Iprat 2.5/0.5mg 3 Ml Ampul.Neb) 3 ml INHALE RQ4H ANA Enoxaparin Sodium (Enoxaparin Sodium 40 Mg/0.4 Ml Syringe) 40 mg SUBCUT Q24H ANA Doxycycline Hyclate 100 mg/ (Sodium Chloride) 250 mls @ 166.67 mls/hr IV Q12H ANA Methylprednisolone Sodium Succinate (Methylprednisolone Sod Succ 40 Mg/Ml Vial) 40 mg IVPUSH Q8H ANA Sodium Chloride (0.9 % Sodium Chloride Flush 3 Ml Syringe) 3 ml IVFLUSH QSHIFT ANA Home Medications Medication Instructions Recorded Confirmed Last Taken Type loratadine 10 mg tablet (Claritin) 10 mg PO DAILY 12/30/19 06/05/23 05/18/23 History montelukast 10 mg tablet 10 mg PO BEDTIME 12/30/19 06/05/23 05/18/23 History diltiazem HCl 360 mg capsule,24 360 mg PO DAILY 11/16/20 06/05/23 05/18/23 History hr,extended release (Tiadylt ER) roflumilast 500 mcg tablet 500 mcg PO DAILY 11/16/20 06/05/23 05/18/23 History (Daliresp) rosuvastatin 5 mg tablet 5 mg PO BEDTIME 11/16/20 06/05/23 05/18/23 History metformin 500 mg tablet,extended 500 mg PO DAILY 05/18/21 06/05/23 05/18/23 History release 24 hr methadone 10 mg/mL oral concentrate 50 mg PO DAILY 06/06/21 06/02/23 06/01/23 History hydralazine 25 mg tablet 25 mg PO TIDWM 11/02/21 06/05/23 05/18/23 History insulin lispro 100 unit/mL 4 unit subcut TIDAC PRN 11/02/21 06/05/23 05/18/23 History subcutaneous solution Hyperglycemia clonazepam 1 mg tablet 1 mg PO BID PRN Anxiety 06/28/22 06/05/23 Unknown History lamotrigine 150 mg tablet 150 mg PO BID 07/29/22 06/05/23 05/18/23 History calcitonin (salmon) 200 1 spray intranasal DAILY 09/30/22 06/05/23 05/18/23 History unit/actuation nasal spray insulin glargine 100 unit/mL 45 unit subcut BEDTIME 09/30/22 06/05/23 05/18/23 History subcutaneous solution (Lantus U-100 Insulin) docusate sodium 100 mg capsule 100 mg PO BID PRN constipation 10/20/22 06/05/23 Unknown History nebulizers 11/08/22 04/08/23 02/02/23 09:00 History polyethylene glycol 3350 17 17 g PO DAILY constipation 12/21/22 06/05/23 02/20/23 History gram/dose oral powder (Miralax) ammonium lactate 12 % lotion 1 appl topical DAILY Rash 02/02/23 06/05/23 05/18/23 History sulfamethoxazole 400 1 tab PO DAILY 04/08/23 06/05/23 05/18/23 History mg-trimethoprim 80 mg tablet diclofenac sodium 1 % topical gel 4 g topical QID PRN Pain 05/04/23 06/05/23 Unknown History zolpidem 5 mg tablet 5 mg PO BEDTIME PRN Sleep 05/04/23 06/05/23 Unknown History cholecalciferol (vitamin D3) 1,250 1,250 mcg PO 2XW 05/19/23 06/05/23 Unknown History mcg (50,000 unit) capsule lidocaine 5 % topical patch 1 patch topical QAM PRN Pain 05/19/23 06/05/23 Unknown History acetazolamide 250 mg tablet 250 mg PO DAILY 06/01/23 06/05/23 Unknown History Physical Exam 2 Vital Signs and Narrative: Vital Signs: Last Vital Signs Temp 96.8 F 06/05/23 17:04 Pulse 112 H 06/05/23 21:22 Resp 18 06/05/23 21:22 BP 139/83 06/05/23 19:21 Pulse Ox 99 06/05/23 19:21 O2 Del Method BiPAP 06/05/23 19:21 FiO2 25 06/05/23 17:04 BMI result Body Mass Index 40.7 Constitutional - Awake and Alert, somnolence. No acute distress. Obese HEENT - Pupils equally round. Normal sclerae. Dry oral mucosa Heart - tachycardia. No murmur Lungs - Normal lung expansion, Normal respiratory effort, No respiratory distress, tachypnea. End expiratory wheezes Abdomen - NT / ND; +BS; No rebound or guarding Extremities - right lower extremity: Erythema, edema with wrinkled skin. Nontender. Left lower extremity: No swelling, no erythema. Musculoskeletal - Normal inspection, normal ROM Skin - Warm/Dry Neurological - Alert & oriented x3. Somnolent. No focal weakness grossly noted. Normal speech. Psychological - Appropriate affect Results Labs 06/05/23 15:54 06/05/23 15:54 Labs: Laboratory Results - last 24 hr 06/05/23 06/05/23 06/05/23 15:54 15:58 19:19 MCV 99.2 H MCH 31.3 MCHC 31.5 RDW 13.7 Plt Count 312 MPV 9.0 L Immature Gran % (Auto) 1.5 H Neut % (Auto) 88.2 H Lymph % (Auto) 5.1 L [place] % (Auto) 4.8 Eos % (Auto) 0.2 Baso % (Auto) 0.2 Lymph # (Auto) 1.0 L [place] # (Auto) 1.0 Eos # (Auto) 0.1 Baso # (Auto) 0.1 Abs Immat Gran (auto) 0.31 H Absolute Neuts (auto) 17.9 H Absolute Nucleated RBC 0.060 H Nucleated RBC % (auto) 0.3 H PT 10.3 L INR 0.8 L APTT 19.6 L VBG pH 7.28 L VBG pCO2 83 VBG pO2 67 VBG HCO3 40 H VBG O2 Saturation 90.0 VBG Base Excess 9.8 Anion Gap 12 Estim Creat Clear Calc 95.8 Estimated GFR > 60 Random Glucose 346 H Lactic Acid 1.3 Calcium 9.0 D Magnesium 1.6 Total Bilirubin 0.2 AST 16 ALT 22 Alkaline Phosphatase 46 Troponin I High Sens 9.8 Total Protein 6.7 Albumin 3.9 Urine Color Yellow Urine Appearance Clear Urine pH 5.5 Ur Specific [place] 1.020 Urine Protein Negative Urine Glucose (UA) >=1000 H Urine Ketones Negative Urine Blood Negative Urine Nitrite Negative Ur Leukocyte Esterase Negative Urine RBC 0-2 Urine WBC 0-5 Ur Squamous Epith Cells 0-2 Urine Bacteria None Seen Hyaline Casts 0-2 Influenza Type A (PCR) NEGATIVE Influenza Type B (PCR) NEGATIVE RSV RNA Qual (PCR) NEGATIVE SARS-CoV-2 RNA (RT-PCR) NEGATIVE 06/05/23 21:12 MCV MCH MCHC RDW Plt Count MPV Immature Gran % (Auto) Neut % (Auto) Lymph % (Auto) [place] % (Auto) Eos % (Auto) Baso % (Auto) Lymph # (Auto) [place] # (Auto) Eos # (Auto) Baso # (Auto) Abs Immat Gran (auto) Absolute Neuts (auto) Absolute Nucleated RBC Nucleated RBC % (auto) PT INR APTT VBG pH 7.45 H VBG pCO2 60 VBG pO2 144 VBG HCO3 42 H VBG O2 Saturation 100.0 VBG Base Excess 15.5 Anion Gap Estim Creat Clear Calc Estimated GFR Random Glucose Lactic Acid Calcium Magnesium Total Bilirubin AST ALT Alkaline Phosphatase Troponin I High Sens Total Protein Albumin Urine Color Urine Appearance Urine pH Ur Specific [place] Urine Protein Urine Glucose (UA) Urine Ketones Urine Blood Urine Nitrite Ur Leukocyte Esterase Urine RBC Urine WBC Ur Squamous Epith Cells Urine Bacteria Hyaline Casts Influenza Type A (PCR) Influenza Type B (PCR) RSV RNA Qual (PCR) SARS-CoV-2 RNA (RT-PCR) Imaging Radiologist's Impressions: Impressions Chest X-Ray 06/05/23 15:57 IMPRESSION: Unremarkable chest examination. Assessment and Plan (1) Acute and chronic respiratory failure with hypercapnia: Status: Acute (2) Asthma with COPD with exacerbation: Status: Resolved (3) Diabetes mellitus: Qualifiers: Diabetes mellitus type: type 2 Diabetes mellitus meterman insulin use: with meterman use Diabetes mellitus complication status: without complication Qualified Code(s): E11.9 - Type 2 diabetes mellitus without complications; Z79.4 - jail (current) use of insulin Status: Inactive Plan Anju Larios is a 53 years old woman admitted with: * Acute on chronic hypercapnic respiratory failure. Admit to hospitalist service. Telemetry. Pulse oximetry. Continue supplemental oxygen via nasal cannula to keep oxygen saturation > 90%. Nocturnal BiPAP. Start bronchodilator therapy every 4 hours and Solu-Medrol 40 mg IV every 8 hours. Start empiric IV antibiotic therapy with doxycycline IV. Continue montelukast and Daliresp. Avoid sedative. * Leukocytosis probably related to steroids (pt has been using prednisone) however patient has sepsis criteria. Start treatment with doxycycline IV. Blood cultures were obtained -will follow results. * Essential hypertension. Continue diltiazem and hydralazine. * GERD. Continue PPI. * Right lower extremity, cellulitis. Received a course of antibiotics. Check venous ultrasound to assess DVT. * HFpEF. No findings of CHF on chest x-ray. Continue Lasix. * Obstructive sleep apnea. Nocturnal BiPAP. * Hyperlipidemia. Continue statin. * Mental health. On hold to avoid sedation. * Type 2 diabetes mellitus. Blood glucose monitoring before meals and bedtime. Continue Lantus and metformin (to decrease insulin resistance). Insulin sliding scale. Diabetic diet. * Morbid obesity, BMI 40.7 kg/m2. Weight loss. * Chronic opiate dependence. Continue methadone when confirmed. DVT prophylaxis: Heparin subcut Code status: Full Patient will require hospitalization for at least 2 midnights for treatment of acute hypoxic and hypercapnic respiratory failure with bronchodilator therapy, IV steroids and antibiotics. Quality Stroke Does the patient have a stroke diagnosis?: No VTE Prior VTE?: No VTE Risk Level:: Medical - moderate - high VTE Device Contraindication: Treatment Not Indicated VTE Drug Contraindication: N/A - Med Ordered
[2023-06-05] MEDS: Doxycycline Hyclate 100 MG in 0.9 % Sodium Chloride 250 ML 166.67 MG IV (22:48)
[2023-06-05 23:05] LABS: Glucose, Whole Blood 386 mg/dL (60-115)
[2023-06-05] MEDS: Insulin Glargine,Hum.rec.anlog 100 UNIT/ML 10 ML VIAL 45 UNIT SUBCUT (23:08)
[2023-06-05] MEDS: hydrALAZINE HCl 25 MG TABLET PO (23:10)
[2023-06-05] MEDS: Budesonide 0.5 MG/2 ML AMPUL.NEB INHALE (23:41)
[2023-06-05] MEDS: Insulin Lispro 100 UNIT/ML 3 ML VIAL SUBCUT (23:44)
--- NOTE | 2023-06-05 23:46 | PC.NURSE ---
Blood sugar 386, provider Mj Plasencia made aware, new order of 10 units of lispro given per MAY.
[2023-06-06] VITALS (13 sets, daily range): BP systolic 123–164; BP diastolic 63–92; PULSE 18–112; RESP 16–23; TEMP 36.2–37; O2SAT 92–100
[2023-06-06] MEDS: 0.9 % Sodium Chloride Flush 3 ML SYRINGE IVFLUSH ×4 (00:48→23:52)
[2023-06-06] MEDS: methylPREDNISolone Sod Succ 40 MG/ML VIAL IVPUSH ×4 (00:48→23:45)
[2023-06-06] MEDS: Albuterol/Iprat 2.5/0.5MG 3 ML AMPUL.NEB INHALE ×5 (03:58→20:58)
[2023-06-06 05:46] LABS: Basophils Percent Auto 0.1 % (0-2); Eosinophils Percent Auto 0.1 % (0-4); Hematocrit 39.7 % (37.0-47.0); Hemoglobin 12.6 g/dl (12.0-16.0); Imm Gran Abs Auto 0.12 X10*3/uL (0.00-0.03); Imm Gran Pct Auto 0.8 % (0.0-0.4); Lymphocytes Absolute Auto 0.3 X10*3/uL (1.2-4.9); Lymphocytes Percent Auto 2.1 % (20-40); MANUAL DIFF FLAG SCAN; Mean Corpuscular HGB Conc 31.7 g/dl (31.0-35.0); Mean Corpuscular Hemoglobin 31.3 pg (27.0-33.0); Mean Corpuscular Volume 98.8 fL (80.0-98.0); Mean Platelet Volume 9.7 fL (9.4-12.3); Monocytes Absolute Auto 0.3 X10*3/uL (0.1-1.2); Monocytes Percent Auto 1.8 % (2-11); NRBC Pct Auto 0.1 /100WBC (0.0-0.2); Neutrophils Absolute Auto 13.8 x10*3/uL (2.0-8.3); Neutrophils Percent Auto 95.1 % (45-73); PLT CLUMP 1; Red Blood Count 4.02 X10*6/uL (4.20-5.50); Red Cell Distribution Width 13.3 % (11.0-16.0); SCAN SMEAR FLAG 1
[2023-06-06 05:47] LABS: White Blood Count 14.6 X10*3/uL (4.8-10.8)
[2023-06-06 06:01] LABS: Platelet Count 208 X10*3/uL (160-400)
[2023-06-06 06:02] LABS: SLIDE REVIEW VERIFIED
[2023-06-06] MEDS: Omeprazole 40 MG CAPSULE.DR PO (06:10)
--- NOTE | 2023-06-06 06:12 | PC.NURSE ---
Pt requesting EJ taken out, states it is bothering me , EJ resistance to flush, taken out.
[2023-06-06] MEDS: Budesonide 0.5 MG/2 ML AMPUL.NEB INHALE ×2 (07:36→20:58)
[2023-06-06 08:37] LABS: Glucose, Whole Blood 220 mg/dL (60-115)
[2023-06-06] MEDS: metFORMIN HCl ER 500 MG TAB.ER.24H PO (09:17)
[2023-06-06] MEDS: Furosemide 40 MG TABLET PO (09:17)
[2023-06-06] MEDS: Folic Acid 1 MG TABLET PO (09:17)
[2023-06-06] MEDS: Insulin Lispro 100 UNIT/ML 3 ML VIAL SUBCUT ×4 (09:17→22:29)
[2023-06-06] MEDS: hydrALAZINE HCl 25 MG TABLET PO ×2 (09:17→14:57)
[2023-06-06] MEDS: dilTIAZem HCL CD 180 MG CAP.ER.24H 360 MG PO (09:17)
[2023-06-06] MEDS: Loratadine 10 MG TABLET PO (09:17)
[2023-06-06] MEDS: lamoTRIgine 25 MG TABLET 150 MG PO ×2 (09:17→22:26)
[2023-06-06] MEDS: Enoxaparin Sodium 40 MG/0.4 ML SYRINGE SUBCUT (09:18)
[2023-06-06] MEDS: Doxycycline Hyclate 100 MG in 0.9 % Sodium Chloride 250 ML 166.67 MG IV ×2 (09:20→22:30)
[2023-06-06] MEDS: acetaZOLAMIDE 250 MG TABLET PO (09:21)
[2023-06-06 10:02] LABS: Anion Gap 16 (12-20)
[2023-06-06 10:11] LABS: Alanine Aminotransferase 25 U/L (0-31); Albumin Level 3.7 g/dL (3.5-5.0); Alkaline Phosphatase 47 U/L (39-117); Aspartate Amino Transferase 20 U/L (5-31); Bilirubin Total 0.1 mg/dL (0.0-1.0); Blood Urea Nitrogen 19 mg/dL (9-16); Calcium 9.4 mg/dL (8.4-10.2); Carbon Dioxide 33 mmol/L (22-29); Chloride 96 mmol/L (96-108); Creatinine Clr Calc Pharmacy 91.7; Estimated Glomerular Filt Rate > 60; Glucose Random 265 mg/dL (60-115); Potassium 4.8 mmol/L (3.3-5.1); Sodium 140 mmol/L (135-145); Total Protein 6.9 g/dL (6.5-8.0)
--- NOTE | 2023-06-06 10:30 | MHC.CM.PN ---
CM lives alone in an apartment and she uses a walker to assist with mobility. Home/resume [facility] services and [employer] for home O2 is the tentative plan and CM has initiated and will follow for dc planning. HCP is on file and PCP is Dr. Kelli jones.
[2023-06-06 13:17] LABS: Glucose, Whole Blood 183 mg/dL (60-115)
--- NOTE | 2023-06-06 13:31 | PC.NURSE ---
Methadone last dose faxed to pharmacy.
--- NOTE | 2023-06-06 13:38 | HE.PHANOTE ---
Methadone 50 mg verified by deven per [facility] (Jana) 06/06/23
[2023-06-06] MEDS: Roflumilast 500 MCG TABLET PO (14:56)
[2023-06-06] MEDS: methADONE HCl 20 MG/2 ML ORAL.CONC 50 MG PO (16:26)
--- NOTE | 2023-06-06 16:30 | P.PNIM_ITS ---
Subjective Subjective Date of Service: 06/06/23 Interval History: copd execerbation Review of Systems Patient still having dyspnea with minimal exertion Talking and small sentences No fever or chills Physical Exam 2 Vital Signs: Vital Signs: Last Vital Signs Temp 98.6 F 06/06/23 14:31 Pulse 88 06/06/23 14:49 Resp 18 06/06/23 14:49 BP 136/63 06/06/23 14:31 Pulse Ox 95 06/06/23 14:31 O2 Del Method Nasal Cannula 06/06/23 14:31 O2 Flow Rate 1 06/06/23 14:31 FiO2 25 06/05/23 17:04 BMI result Body Mass Index 40.7 Appearance: Alert.? Oriented X3. cvs: rrr, [id number] , no murmur res: clear to auscultation ,no rhonchii or wheezing abd: no rebound or guarding ,nt, bs present. ext pulses present , no cyanosis ,Gait well balanced well coordinated. neuro: axo3 , nonfocal. Objective Data Active Medications Acetaminophen (Acetaminophen 325 Mg Tablet) 650 mg PO Q6H PRN PRN Reason: Pain, Mild (Pain Scale 1-3) Acetazolamide (Acetazolamide 250 Mg Tablet) 250 mg PO DAILY [facility] Last Admin: 06/06/23 09:21 Dose: 250 mg Documented By: SIDRA Albuterol/Ipratropium (Albuterol/Iprat 2.5/0.5mg 3 Ml Ampul.Neb) 3 ml INHALE RQ4H [facility] Last Admin: 06/06/23 14:49 Dose: 3 ml Documented By: WILLIAM Atorvastatin Calcium (Atorvastatin Calcium 20 Mg Tablet) 20 mg PO BEDTIME [facility] Budesonide (Budesonide 0.5 Mg/2 Ml Ampul.Neb) 0.5 mg INHALE RBID [facility] Last Admin: 06/06/23 07:36 Dose: 0.5 mg Documented By: WILLIAM Calcitonin [place] (Calcitonin,[place],Synth Nasal 3.7 Ml Bottle) 1 spray NOSTRIL-B DAILY [facility] Last Admin: 06/06/23 09:13 Dose: Not Given Documented By: SIDRA Non-Admin Reason: Med Not Available Dextrose (Dextrose 50 % 25 Gm/50 Ml Syringe) 25 gm IVPUSH Q15M PRN; Protocol PRN Reason: per Hypoglycemia Standing Ord. Diltiazem HCl (Diltiazem Hcl Cd 180 Mg Cap.Er.24h) 360 mg PO DAILY [facility]; Protocol Last Admin: 06/06/23 09:17 Dose: 360 mg Documented By: SIDRA Docusate Sodium (Docusate Sodium 100 Mg Capsule) 100 mg PO BID PRN PRN Reason: constipation Enoxaparin Sodium (Enoxaparin Sodium 40 Mg/0.4 Ml Syringe) 40 mg SUBCUT Q24H [facility] Last Admin: 06/06/23 09:18 Dose: 40 mg Documented By: SIDRA Folic Acid (Folic Acid 1 Mg Tablet) 1 mg PO DAILY [facility] Last Admin: 06/06/23 09:17 Dose: 1 mg Documented By: SIDRA Furosemide (Furosemide 40 Mg Tablet) 40 mg PO DAILY [facility]; Protocol Last Admin: 06/06/23 09:17 Dose: 40 mg Documented By: SIDRA Glucose (Glucose Gel 15 Gm Gel..Gram.) 15 gm PO Q15M PRN; Protocol PRN Reason: per Hypoglycemia Standing Ord. Hydralazine HCl (Hydralazine Hcl 25 Mg Tablet) 25 mg PO TIDWM [facility]; Protocol Last Admin: 06/06/23 14:57 Dose: 25 mg Documented By: JOSE Doxycycline Hyclate 100 mg/ (Sodium Chloride) 250 mls @ 166.67 mls/hr IV Q12H [facility] Last Admin: 06/06/23 09:20 Dose: 166.67 mls/hr Documented By: SIDRA Insulin Glargine (Insulin Glargine,Hum.Rec.Anlog 100 Unit/Ml 10 Ml Vial) 45 unit SUBCUT BEDTIME [facility] Last Admin: 06/05/23 23:08 Dose: 45 unit Documented By: VIVIANE Insulin Human Lispro (Insulin Lispro 100 Unit/Ml 3 Ml Vial) 0 unit SUBCUT QIDACHS [facility]; Protocol Last Admin: 06/06/23 14:57 Dose: 2 unit Documented By: JOSE Lamotrigine (Lamotrigine 25 Mg Tablet) 150 mg PO BID [facility] Last Admin: 06/06/23 09:17 Dose: 150 mg Documented By: SIDRA Lidocaine (Lidocaine 4 % Patch Adh..Patch) 1 patch TRANSDERMA DAILY PRN PRN Reason: Pain Loratadine (Loratadine 10 Mg Tablet) 10 mg PO DAILY [facility] Last Admin: 06/06/23 09:17 Dose: 10 mg Documented By: SIDRA Metformin HCl (Metformin Hcl Er 500 Mg Tab.Er.24h) 500 mg PO DAILY [facility] Last Admin: 06/06/23 09:17 Dose: 500 mg Documented By: SIDRA Methadone HCl (Methadone Hcl 20 Mg/2 Ml Oral.Conc) 50 mg PO DAILY [facility] Last Admin: 06/06/23 16:26 Dose: 50 mg Documented By: JOSE Methylprednisolone Sodium Succinate (Methylprednisolone Sod Succ 40 Mg/Ml Vial) 40 mg IVPUSH Q8H [facility] Last Admin: 06/06/23 09:17 Dose: 40 mg Documented By: SIDRA Montelukast Sodium (Montelukast Sodium 10 Mg Tablet) 10 mg PO BEDTIME [facility] Non-Formulary Medication (Arformoterol [Brovana]) 2 ml INHALE Q12H [facility] Omeprazole (Omeprazole 40 Mg Capsule.) 40 mg PO DAILY@0630 [facility] Last Admin: 06/06/23 06:10 Dose: 40 mg Documented By: VIVIANE Polyethylene Glycol (Polyethylene Glycol 3350 17 Gm Powd.Pack) 17 gm PO DAILY [facility] Last Admin: 06/06/23 09:34 Dose: Not Given Documented By: SIDRA Non-Admin Reason: Patient Refused Comments: Pt had BM today Roflumilast (Roflumilast 500 Mcg Tablet) 500 mcg PO DAILY [facility] Last Admin: 06/06/23 14:56 Dose: 500 mcg Documented By: JOSE Sodium Chloride (0.9 % Sodium Chloride Flush 3 Ml Syringe) 3 ml IVFLUSH QSHIFT [facility] Last Admin: 06/06/23 09:18 Dose: 3 ml Documented By: SIDRA Labs 06/06/23 05:03 06/06/23 09:17 Labs: Laboratory Results - last 24 hr 06/05/23 06/05/23 06/05/23 15:54 19:19 21:12 MCV MCH MCHC RDW Plt Count MPV Immature Gran % (Auto) Neut % (Auto) Lymph % (Auto) [place] % (Auto) Eos % (Auto) Baso % (Auto) Lymph # (Auto) [place] # (Auto) Eos # (Auto) Baso # (Auto) Abs Immat Gran (auto) Absolute Neuts (auto) Absolute Nucleated RBC Nucleated RBC % (auto) Smear Tech's Comments PT 10.3 L INR 0.8 L APTT 19.6 L VBG pH 7.45 H VBG pCO2 60 VBG pO2 144 VBG HCO3 42 H VBG O2 Saturation 100.0 VBG Base Excess 15.5 Anion Gap Estim Creat Clear Calc Estimated GFR POC Glucose Random Glucose Calcium Total Bilirubin AST ALT Alkaline Phosphatase Total Protein Albumin Urine Color Yellow Urine Appearance Clear Urine pH 5.5 Ur Specific [place] 1.020 Urine Protein Negative Urine Glucose (UA) >=1000 H Urine Ketones Negative Urine Blood Negative Urine Nitrite Negative Ur Leukocyte Esterase Negative Urine RBC 0-2 Urine WBC 0-5 Ur Squamous Epith Cells 0-2 Urine Bacteria None Seen Hyaline Casts 0-2 Influenza Type A (PCR) NEGATIVE Influenza Type B (PCR) NEGATIVE RSV RNA Qual (PCR) NEGATIVE SARS-CoV-2 RNA (RT-PCR) NEGATIVE 06/05/23 06/06/23 06/06/23 23:00 05:03 07:19 MCV 98.8 H MCH 31.3 MCHC 31.7 RDW 13.3 Plt Count 208 D MPV 9.7 Immature Gran % (Auto) 0.8 H Neut % (Auto) 95.1 H Lymph % (Auto) 2.1 L [place] % (Auto) 1.8 L Eos % (Auto) 0.1 Baso % (Auto) 0.1 Lymph # (Auto) 0.3 L [place] # (Auto) 0.3 Eos # (Auto) 0.0 Baso # (Auto) 0.0 Abs Immat Gran (auto) 0.12 H Absolute Neuts (auto) 13.8 H Absolute Nucleated RBC 0.020 H Nucleated RBC % (auto) 0.1 Smear Tech's Comments VERIFIED PT INR APTT VBG pH VBG pCO2 VBG pO2 VBG HCO3 VBG O2 Saturation VBG Base Excess Anion Gap Estim Creat Clear Calc Estimated GFR POC Glucose 386 H* 220 H Random Glucose Calcium Total Bilirubin AST ALT Alkaline Phosphatase Total Protein Albumin Urine Color Urine Appearance Urine pH Ur Specific [place] Urine Protein Urine Glucose (UA) Urine Ketones Urine Blood Urine Nitrite Ur Leukocyte Esterase Urine RBC Urine WBC Ur Squamous Epith Cells Urine Bacteria Hyaline Casts Influenza Type A (PCR) Influenza Type B (PCR) RSV RNA Qual (PCR) SARS-CoV-2 RNA (RT-PCR) 06/06/23 06/06/23 09:17 13:13 MCV MCH MCHC RDW Plt Count MPV Immature Gran % (Auto) Neut % (Auto) Lymph % (Auto) [place] % (Auto) Eos % (Auto) Baso % (Auto) Lymph # (Auto) [place] # (Auto) Eos # (Auto) Baso # (Auto) Abs Immat Gran (auto) Absolute Neuts (auto) Absolute Nucleated RBC Nucleated RBC % (auto) Smear Tech's Comments PT INR APTT VBG pH VBG pCO2 VBG pO2 VBG HCO3 VBG O2 Saturation VBG Base Excess Anion Gap 16 Estim Creat Clear Calc 91.7 Estimated GFR > 60 POC Glucose 183 H Random Glucose 265 H Calcium 9.4 Total Bilirubin 0.1 AST 20 ALT 25 Alkaline Phosphatase 47 Total Protein 6.9 Albumin 3.7 Urine Color Urine Appearance Urine pH Ur Specific [place] Urine Protein Urine Glucose (UA) Urine Ketones Urine Blood Urine Nitrite Ur Leukocyte Esterase Urine RBC Urine WBC Ur Squamous Epith Cells Urine Bacteria Hyaline Casts Influenza Type A (PCR) Influenza Type B (PCR) RSV RNA Qual (PCR) SARS-CoV-2 RNA (RT-PCR) Assessment and Plan (1) Acute and chronic respiratory failure with hypercapnia: Status: Acute Plan 53 years old woman admitted with: Acute on chronic hypercapnic respiratory failure possible sec to copd execerebation: Leukocytosis improving blood culture pending Pulse oximetry. Continue supplemental oxygen via nasal cannula to keep oxygen saturation > 90%, nebs,steriods , IV antibiotic therapy with doxycycline IV,montelukast and Daliresp. Avoid sedative. Continue diltiazem and hydralazine. GERD. Continue PPI. Right lower extremity, cellulitis. Received a course of antibiotics. Check venous ultrasound to assess DVT. HFpEF. No findings of CHF on chest x-ray. Continue Lasix. Obstructive sleep apnea. Nocturnal BiPAP. Hyperlipidemia. Continue statin. Mental health. On hold to avoid sedation. Type 2 diabetes mellitus. Blood glucose monitoring before meals and bedtime. Continue Lantus and metformin (to decrease insulin resistance). Insulin sliding scale. Diabetic diet. Morbid obesity, BMI 40.7 kg/m2. encouraged for Weight loss and cut down calories. Chronic opiate dependence. Continue methadone when confirmed. ongoing hospitalization fors for treatment of acute hypoxic and hypercapnic respiratory failure with copd- need therapy, IV steroids and antibiotics. Quality Stroke Does the patient have a stroke diagnosis?: No VTE Prior VTE?: No VTE Risk Level:: Medical - moderate - high VTE Device Contraindication: Treatment Not Indicated VTE Drug Contraindication: N/A - Med Ordered
[2023-06-06 18:06] LABS: Glucose, Whole Blood 297 mg/dL (60-115)
[2023-06-06 20:04] LABS: Glucose, Whole Blood 215 mg/dL (60-115)
[2023-06-06] MEDS: Atorvastatin Calcium 20 MG TABLET PO (22:26)
[2023-06-06] MEDS: Montelukast Sodium 10 MG TABLET PO (22:26)
[2023-06-06] MEDS: Insulin Glargine,Hum.rec.anlog 100 UNIT/ML 10 ML VIAL 45 UNIT SUBCUT (22:30)
[2023-06-06] MEDS: Gabapentin 300 MG CAPSULE PO (23:45)
[2023-06-07] VITALS (13 sets, daily range): BP systolic 139–174; BP diastolic 72–94; PULSE 84–120; RESP 18–24; TEMP 35.8–36.4; O2SAT 93–100
[2023-06-07] MEDS: Albuterol/Iprat 2.5/0.5MG 3 ML AMPUL.NEB INHALE ×7 (04:16→23:43)
[2023-06-07] MEDS: Omeprazole 40 MG CAPSULE.DR PO (05:41)
[2023-06-07] MEDS: Budesonide 0.5 MG/2 ML AMPUL.NEB INHALE ×2 (07:25→19:43)
[2023-06-07 07:51] LABS: Glucose, Whole Blood 247 mg/dL (60-115)
[2023-06-07] MEDS: Insulin Lispro 100 UNIT/ML 3 ML VIAL SUBCUT ×4 (08:26→20:56)
[2023-06-07] MEDS: methADONE HCl 20 MG/2 ML ORAL.CONC 50 MG PO (08:27)
[2023-06-07] MEDS: methylPREDNISolone Sod Succ 40 MG/ML VIAL IVPUSH ×2 (08:27→16:41)
[2023-06-07] MEDS: 0.9 % Sodium Chloride Flush 3 ML SYRINGE IVFLUSH ×3 (08:27→20:54)
[2023-06-07] MEDS: lamoTRIgine 25 MG TABLET 150 MG PO ×2 (08:27→20:54)
[2023-06-07] MEDS: metFORMIN HCl ER 500 MG TAB.ER.24H PO (08:28)
[2023-06-07] MEDS: Roflumilast 500 MCG TABLET PO (08:28)
[2023-06-07] MEDS: hydrALAZINE HCl 25 MG TABLET PO ×3 (08:28→16:42)
[2023-06-07] MEDS: dilTIAZem HCL CD 180 MG CAP.ER.24H 360 MG PO (08:28)
[2023-06-07] MEDS: Enoxaparin Sodium 40 MG/0.4 ML SYRINGE SUBCUT (08:28)
[2023-06-07] MEDS: acetaZOLAMIDE 250 MG TABLET PO (08:28)
[2023-06-07] MEDS: Furosemide 40 MG TABLET PO (08:28)
[2023-06-07] MEDS: Loratadine 10 MG TABLET PO (08:28)
[2023-06-07] MEDS: Gabapentin 300 MG CAPSULE PO ×2 (08:28→20:54)
[2023-06-07] MEDS: Folic Acid 1 MG TABLET PO (08:28)
[2023-06-07 11:48] LABS: Glucose, Whole Blood 300 mg/dL (60-115)
[2023-06-07] MEDS: Doxycycline Hyclate 100 MG in 0.9 % Sodium Chloride 250 ML 166.67 MG IV ×2 (11:56→20:55)
--- NOTE | 2023-06-07 12:32 | P.PNIM_ITS ---
Subjective Subjective Date of Service: 06/07/23 Interval History: copd execerbation Review of Systems has dyspnea with minimal exertion Talking and small sentences No fever or chills Physical Exam 2 Vital Signs: Vital Signs: Last Vital Signs Temp 97.6 F 06/07/23 11:03 Pulse 120 H 06/07/23 11:13 Resp 20 06/07/23 11:13 BP 174/89 H 06/07/23 11:03 Pulse Ox 96 06/07/23 11:03 O2 Del Method Nasal Cannula 06/07/23 11:03 O2 Flow Rate 2 06/07/23 11:03 FiO2 25 06/07/23 03:10 BMI result Body Mass Index 40.7 Appearance: Alert.? Oriented X3. cvs: [id number], [id number] , no murmur res:air entry seems little improving ,has b/l exp wheezing abd: no rebound or guarding ,nt, bs present. ext pulses present , no cyanosis . neuro: axo3 , nonfocal. Objective Data Active Medications Acetaminophen (Acetaminophen 325 Mg Tablet) 650 mg PO Q6H PRN PRN Reason: Pain, Mild (Pain Scale 1-3) Acetazolamide (Acetazolamide 250 Mg Tablet) 250 mg PO DAILY [facility] Last Admin: 06/07/23 08:28 Dose: 250 mg Documented By: GANESH Albuterol/Ipratropium (Albuterol/Iprat 2.5/0.5mg 3 Ml Ampul.Neb) 3 ml INHALE RQ4H [facility] Last Admin: 06/07/23 11:13 Dose: 3 ml Documented By: SANJAY Atorvastatin Calcium (Atorvastatin Calcium 20 Mg Tablet) 20 mg PO BEDTIME [facility] Last Admin: 06/06/23 22:26 Dose: 20 mg Documented By: NELI Budesonide (Budesonide 0.5 Mg/2 Ml Ampul.Neb) 0.5 mg INHALE RBID [facility] Last Admin: 06/07/23 07:25 Dose: 0.5 mg Documented By: SANJAY Calcitonin [place] (Calcitonin,[place],Synth Nasal 3.7 Ml Bottle) 1 spray NOSTRIL-B DAILY [facility] Last Admin: 06/07/23 10:09 Dose: Not Given Documented By: GANESH Non-Admin Reason: Med Not Available Clonazepam (Clonazepam 1 Mg Tablet) 1 mg PO BID PRN PRN Reason: Anxiety Dextrose (Dextrose 50 % 25 Gm/50 Ml Syringe) 25 gm IVPUSH Q15M PRN; Protocol PRN Reason: per Hypoglycemia Standing Ord. Diltiazem HCl (Diltiazem Hcl Cd 180 Mg Cap.Er.24h) 360 mg PO DAILY [facility]; Protocol Last Admin: 06/07/23 08:28 Dose: 360 mg Documented By: GANESH Docusate Sodium (Docusate Sodium 100 Mg Capsule) 100 mg PO BID PRN PRN Reason: constipation Enoxaparin Sodium (Enoxaparin Sodium 40 Mg/0.4 Ml Syringe) 40 mg SUBCUT Q24H [facility] Last Admin: 06/07/23 08:28 Dose: 40 mg Documented By: GANESH Folic Acid (Folic Acid 1 Mg Tablet) 1 mg PO DAILY [facility] Last Admin: 06/07/23 08:28 Dose: 1 mg Documented By: GANESH Furosemide (Furosemide 40 Mg Tablet) 40 mg PO DAILY [facility]; Protocol Last Admin: 06/07/23 08:28 Dose: 40 mg Documented By: GANESH Gabapentin (Gabapentin 300 Mg Capsule) 300 mg PO BID [facility] Last Admin: 06/07/23 08:28 Dose: 300 mg Documented By: GANESH Glucose (Glucose Gel 15 Gm Gel..Gram.) 15 gm PO Q15M PRN; Protocol PRN Reason: per Hypoglycemia Standing Ord. Hydralazine HCl (Hydralazine Hcl 25 Mg Tablet) 25 mg PO TIDWM [facility]; Protocol Last Admin: 06/07/23 11:56 Dose: 25 mg Documented By: GANESH Doxycycline Hyclate 100 mg/ (Sodium Chloride) 250 mls @ 166.67 mls/hr IV Q12H [facility] Last Admin: 06/07/23 11:56 Dose: 166.67 mls/hr Documented By: GANESH Insulin Glargine (Insulin Glargine,Hum.Rec.Anlog 100 Unit/Ml 10 Ml Vial) 45 unit SUBCUT BEDTIME [facility] Last Admin: 06/06/23 22:30 Dose: 45 unit Documented By: NELI Insulin Human Lispro (Insulin Lispro 100 Unit/Ml 3 Ml Vial) 0 unit SUBCUT QIDACHS [facility]; Protocol Last Admin: 06/07/23 11:57 Dose: 8 unit Documented By: GANESH Lamotrigine (Lamotrigine 25 Mg Tablet) 150 mg PO BID [facility] Last Admin: 06/07/23 08:27 Dose: 150 mg Documented By: GANESH Lidocaine (Lidocaine 4 % Patch Adh..Patch) 1 patch TRANSDERMA DAILY PRN PRN Reason: Pain Loratadine (Loratadine 10 Mg Tablet) 10 mg PO DAILY [facility] Last Admin: 06/07/23 08:28 Dose: 10 mg Documented By: GANESH Metformin HCl (Metformin Hcl Er 500 Mg Tab.Er.24h) 500 mg PO DAILY [facility] Last Admin: 06/07/23 08:28 Dose: 500 mg Documented By: GANESH Methadone HCl (Methadone Hcl 20 Mg/2 Ml Oral.Conc) 50 mg PO DAILY [facility] Last Admin: 06/07/23 08:27 Dose: 50 mg Documented By: GANESH Methylprednisolone Sodium Succinate (Methylprednisolone Sod Succ 40 Mg/Ml Vial) 40 mg IVPUSH Q8H [facility] Last Admin: 06/07/23 08:27 Dose: 40 mg Documented By: GANESH Montelukast Sodium (Montelukast Sodium 10 Mg Tablet) 10 mg PO BEDTIME [facility] Last Admin: 06/06/23 22:26 Dose: 10 mg Documented By: NELI Non-Formulary Medication (Arformoterol [Brovana]) 2 ml INHALE Q12H [facility] Omeprazole (Omeprazole 40 Mg Capsule.) 40 mg PO DAILY@0630 [facility] Last Admin: 06/07/23 05:41 Dose: 40 mg Documented By: NELI Polyethylene Glycol (Polyethylene Glycol 3350 17 Gm Powd.Pack) 17 gm PO DAILY [facility] Last Admin: 06/07/23 08:29 Dose: Not Given Documented By: GANESH Non-Admin Reason: Patient Refused Roflumilast (Roflumilast 500 Mcg Tablet) 500 mcg PO DAILY [facility] Last Admin: 06/07/23 08:28 Dose: 500 mcg Documented By: GANESH Sodium Chloride (0.9 % Sodium Chloride Flush 3 Ml Syringe) 3 ml IVFLUSH QSHIFT [facility] Last Admin: 03/23/24 08:27 Dose: 3 ml Documented By: GANESH Labs 06/06/23 05:03 06/06/23 09:17 Labs: Laboratory Results - last 24 hr 06/06/23 06/06/23 06/06/23 13:13 18:03 19:53 POC Glucose 183 H 297 H 215 H 06/07/23 06/07/23 07:35 11:07 POC Glucose 247 H 300 H Microbiology Microbiology Results: Microbiology 06/05/23 15:54 Blood Culture - Preliminary Blood - Venous No growth after 24 hours. 06/05/23 15:16 Blood Culture - Preliminary Blood - Venous No growth after 24 hours. Assessment and Plan (1) Acute and chronic respiratory failure with hypercapnia: Status: Acute Plan 53 years old woman admitted with: Acute on chronic hypercapnic respiratory failure possible sec to copd execerebation: Leukocytosis improving blood culture pending Pulse oximetry. Continue supplemental oxygen via nasal cannula to keep oxygen saturation > 90%, nebs,steriods , IV antibiotic therapy with doxycycline IV,montelukast and Daliresp. Avoid sedative. Continue diltiazem and hydralazine. GERD. Continue PPI. Right lower extremity, cellulitis. Received a course of antibiotics. Check venous ultrasound to assess DVT. HFpEF. No findings of CHF on chest x-ray. Continue Lasix. Obstructive sleep apnea. Nocturnal BiPAP. Hyperlipidemia. Continue statin. Mental health. On hold to avoid sedation. Type 2 diabetes mellitus. Blood glucose monitoring before meals and bedtime. Continue Lantus and metformin (to decrease insulin resistance). Insulin sliding scale. Diabetic diet. Morbid obesity, BMI 40.7 kg/m2. encouraged for Weight loss and cut down calories. Chronic opiate dependence. Continue methadone when confirmed. ongoing hospitalization fors for treatment of acute hypoxic and hypercapnic respiratory failure with copd- need therapy, IV steroids and antibiotics. Quality Stroke Does the patient have a stroke diagnosis?: No VTE Prior VTE?: No VTE Risk Level:: Medical - moderate - high VTE Device Contraindication: Treatment Not Indicated VTE Drug Contraindication: N/A - Med Ordered
[2023-06-07 16:19] LABS: Glucose, Whole Blood 315 mg/dL (60-115)
[2023-06-07 19:48] LABS: Glucose, Whole Blood 299 mg/dL (60-115)
[2023-06-07] MEDS: Atorvastatin Calcium 20 MG TABLET PO (20:54)
[2023-06-07] MEDS: Montelukast Sodium 10 MG TABLET PO (20:54)
[2023-06-07] MEDS: Insulin Glargine,Hum.rec.anlog 100 UNIT/ML 10 ML VIAL 45 UNIT SUBCUT (20:56)
[2023-06-08] VITALS (13 sets, daily range): BP systolic 150–187; BP diastolic 70–90; PULSE 91–118; RESP 17–22; TEMP 35.8–36.7; O2SAT 94–100
[2023-06-08] MEDS: methylPREDNISolone Sod Succ 40 MG/ML VIAL IVPUSH ×3 (02:07→17:00)
[2023-06-08] MEDS: Albuterol/Iprat 2.5/0.5MG 3 ML AMPUL.NEB INHALE ×6 (03:31→23:44)
[2023-06-08] MEDS: Omeprazole 40 MG CAPSULE.DR PO (04:51)
[2023-06-08 07:37] LABS: Glucose, Whole Blood 217 mg/dL (60-115)
[2023-06-08] MEDS: Insulin Lispro 100 UNIT/ML 3 ML VIAL SUBCUT ×4 (07:58→20:38)
[2023-06-08] MEDS: 0.9 % Sodium Chloride Flush 3 ML SYRINGE IVFLUSH ×2 (08:00→17:04)
[2023-06-08] MEDS: acetaZOLAMIDE 250 MG TABLET PO (08:01)
[2023-06-08] MEDS: hydrALAZINE HCl 25 MG TABLET PO ×3 (08:01→17:00)
[2023-06-08] MEDS: Enoxaparin Sodium 40 MG/0.4 ML SYRINGE SUBCUT (08:03)
[2023-06-08] MEDS: dilTIAZem HCL CD 180 MG CAP.ER.24H 360 MG PO (08:03)
[2023-06-08] MEDS: Furosemide 40 MG TABLET PO (08:04)
[2023-06-08] MEDS: Folic Acid 1 MG TABLET PO (08:04)
[2023-06-08] MEDS: Loratadine 10 MG TABLET PO (08:04)
[2023-06-08] MEDS: Gabapentin 300 MG CAPSULE PO ×2 (08:04→20:38)
[2023-06-08] MEDS: lamoTRIgine 25 MG TABLET 150 MG PO ×2 (08:04→20:37)
[2023-06-08] MEDS: Roflumilast 500 MCG TABLET PO (08:05)
[2023-06-08] MEDS: methADONE HCl 20 MG/2 ML ORAL.CONC 50 MG PO (08:05)
[2023-06-08] MEDS: metFORMIN HCl ER 500 MG TAB.ER.24H PO (08:05)
[2023-06-08] MEDS: polyethylene glycoL 3350 17 GM POWD.PACK PO (08:05)
[2023-06-08] MEDS: Budesonide 0.5 MG/2 ML AMPUL.NEB INHALE ×2 (08:28→20:13)
[2023-06-08] MEDS: Doxycycline Hyclate 100 MG in 0.9 % Sodium Chloride 250 ML 166.67 MG IV ×2 (10:40→22:30)
--- NOTE | 2023-06-08 11:54 | HO.PM.IMPN ---
Subjective Subjective Date of Service: 06/08/23 Interval History: copd execerbation Review of Systems dyspnea with minimal exertion similar . generlaised weak No fever or chills Physical Exam Vital Signs: Vital Signs: Last Vital Signs Temp 97.2 F 06/08/23 08:00 Pulse 96 06/08/23 08:28 Resp 20 06/08/23 08:28 BP 187/90 H 06/08/23 08:00 Pulse Ox 95 06/08/23 08:00 O2 Del Method Nasal Cannula 06/08/23 08:00 O2 Flow Rate 2 06/08/23 08:00 FiO2 25 06/07/23 03:10 BMI result Body Mass Index 40.7 Appearance: Alert.? Oriented X3.feels sob with little excersion. cvs: rrr, [id number] , no murmur res:air entry seems little improving ,has b/l exp wheezing abd: no rebound or guarding ,nt, bs present. ext pulses present , no cyanosis . neuro: axo3 , nonfocal. Objective Data Active Medications Acetaminophen (Acetaminophen 325 Mg Tablet) 650 mg PO Q6H PRN PRN Reason: Pain, Mild (Pain Scale 1-3) Acetazolamide (Acetazolamide 250 Mg Tablet) 250 mg PO DAILY [facility] Last Admin: 06/08/23 08:01 Dose: 250 mg Documented By: GANESH Albuterol/Ipratropium (Albuterol/Iprat 2.5/0.5mg 3 Ml Ampul.Neb) 3 ml INHALE RQ4H [facility] Last Admin: 06/08/23 08:28 Dose: 3 ml Documented By: SANJAY Atorvastatin Calcium (Atorvastatin Calcium 20 Mg Tablet) 20 mg PO BEDTIME [facility] Last Admin: 06/07/23 20:54 Dose: 20 mg Documented By: NELI Budesonide (Budesonide 0.5 Mg/2 Ml Ampul.Neb) 0.5 mg INHALE RBID [facility] Last Admin: 06/08/23 08:28 Dose: 0.5 mg Documented By: SANJAY Calcitonin [place] (Calcitonin,[place],Synth Nasal 3.7 Ml Bottle) 1 spray NOSTRIL-B DAILY [facility] Last Admin: 06/08/23 09:48 Dose: Not Given Documented By: GANESH Non-Admin Reason: Med Not Available Clonazepam (Clonazepam 1 Mg Tablet) 1 mg PO BID PRN PRN Reason: Anxiety Dextrose (Dextrose 50 % 25 Gm/50 Ml Syringe) 25 gm IVPUSH Q15M PRN; Protocol PRN Reason: per Hypoglycemia Standing Ord. Diltiazem HCl (Diltiazem Hcl Cd 180 Mg Cap.Er.24h) 360 mg PO DAILY [facility]; Protocol Last Admin: 06/08/23 08:03 Dose: 360 mg Documented By: GANESH Docusate Sodium (Docusate Sodium 100 Mg Capsule) 100 mg PO BID PRN PRN Reason: constipation Enoxaparin Sodium (Enoxaparin Sodium 40 Mg/0.4 Ml Syringe) 40 mg SUBCUT Q24H [facility] Last Admin: 06/08/23 08:03 Dose: 40 mg Documented By: GANESH Folic Acid (Folic Acid 1 Mg Tablet) 1 mg PO DAILY [facility] Last Admin: 06/08/23 08:04 Dose: 1 mg Documented By: GANESH Furosemide (Furosemide 40 Mg Tablet) 40 mg PO DAILY [facility]; Protocol Last Admin: 06/08/23 08:04 Dose: 40 mg Documented By: GANESH Gabapentin (Gabapentin 300 Mg Capsule) 300 mg PO BID [facility] Last Admin: 06/08/23 08:04 Dose: 300 mg Documented By: GANESH Glucose (Glucose Gel 15 Gm Gel..Gram.) 15 gm PO Q15M PRN; Protocol PRN Reason: per Hypoglycemia Standing Ord. Hydralazine HCl (Hydralazine Hcl 25 Mg Tablet) 25 mg PO TIDWM [facility]; Protocol Last Admin: 06/08/23 08:01 Dose: 25 mg Documented By: GANESH Doxycycline Hyclate 100 mg/ (Sodium Chloride) 250 mls @ 166.67 mls/hr IV Q12H [facility] Last Admin: 06/08/23 10:40 Dose: 166.67 mls/hr Documented By: GANESH Insulin Glargine (Insulin Glargine,Hum.Rec.Anlog 100 Unit/Ml 10 Ml Vial) 45 unit SUBCUT BEDTIME [facility] Last Admin: 06/07/23 20:56 Dose: 45 unit Documented By: NELI Insulin Human Lispro (Insulin Lispro 100 Unit/Ml 3 Ml Vial) 0 unit SUBCUT QIDACHS [facility]; Protocol Last Admin: 06/08/23 07:58 Dose: 4 unit Documented By: GANESH Lamotrigine (Lamotrigine 25 Mg Tablet) 150 mg PO BID [facility] Last Admin: 06/08/23 08:04 Dose: 150 mg Documented By: GANESH Lidocaine (Lidocaine 4 % Patch Adh..Patch) 1 patch TRANSDERMA DAILY PRN PRN Reason: Pain Loratadine (Loratadine 10 Mg Tablet) 10 mg PO DAILY [facility] Last Admin: 06/08/23 08:04 Dose: 10 mg Documented By: GANESH Metformin HCl (Metformin Hcl Er 500 Mg Tab.Er.24h) 500 mg PO DAILY [facility] Last Admin: 06/08/23 08:05 Dose: 500 mg Documented By: GANESH Methadone HCl (Methadone Hcl 20 Mg/2 Ml Oral.Conc) 50 mg PO DAILY [facility] Last Admin: 06/08/23 08:05 Dose: 50 mg Documented By: GANESH Methylprednisolone Sodium Succinate (Methylprednisolone Sod Succ 40 Mg/Ml Vial) 40 mg IVPUSH Q8H [facility] Last Admin: 06/08/23 08:05 Dose: 40 mg Documented By: GANESH Montelukast Sodium (Montelukast Sodium 10 Mg Tablet) 10 mg PO BEDTIME [facility] Last Admin: 06/07/23 20:54 Dose: 10 mg Documented By: NELI Non-Formulary Medication (Arformoterol [Brovana]) 2 ml INHALE Q12H [facility] Omeprazole (Omeprazole 40 Mg Capsule.) 40 mg PO DAILY@0630 [facility] Last Admin: 06/08/23 04:51 Dose: 40 mg Documented By: NELI Polyethylene Glycol (Polyethylene Glycol 3350 17 Gm Powd.Pack) 17 gm PO DAILY [facility] Last Admin: 06/08/23 08:05 Dose: 17 gm Documented By: GANESH Roflumilast (Roflumilast 500 Mcg Tablet) 500 mcg PO DAILY [facility] Last Admin: 06/08/23 08:05 Dose: 500 mcg Documented By: GAENSH Sodium Chloride (0.9 % Sodium Chloride Flush 3 Ml Syringe) 3 ml IVFLUSH QSHIFT [facility] Last Admin: 06/08/23 08:00 Dose: 3 ml Documented By: GANESH Labs 06/06/23 05:03 06/06/23 09:17 Labs: Laboratory Results - last 24 hr 06/07/23 06/07/23 06/08/23 16:04 19:26 07:33 POC Glucose 315 H 299 H 217 H Microbiology Microbiology Results: Microbiology 06/05/23 15:16 Blood Culture - Preliminary Blood - Venous No growth after 48 hours. 06/05/23 15:54 Blood Culture - Preliminary Blood - Venous No growth after 48 hours. Assessment and Plan (1) Acute and chronic respiratory failure with hypercapnia: Status: Acute Plan 53 years old woman admitted with: Acute on chronic hypercapnic respiratory failure possible sec to copd execerebation: Leukocytosis improving blood culture pending Pulse oximetry. Continue supplemental oxygen via nasal cannula to keep oxygen saturation > 90%, nebs,steriods , IV antibiotic therapy with doxycycline IV,montelukast and Daliresp. Avoid sedative. Continue diltiazem and hydralazine. GERD. Continue PPI. Right lower extremity, cellulitis. Received a course of antibiotics. Check venous ultrasound to assess DVT. HFpEF. No findings of CHF on chest x-ray. Continue Lasix. Obstructive sleep apnea. Nocturnal BiPAP. Hyperlipidemia. Continue statin. Mental health. On hold to avoid sedation. Type 2 diabetes mellitus. Blood glucose monitoring before meals and bedtime. Continue Lantus and metformin (to decrease insulin resistance). Insulin sliding scale. Diabetic diet. Morbid obesity, BMI 40.7 kg/m2. encouraged for Weight loss and cut down calories. Chronic opiate dependence. Continue methadone when confirmed. ongoing hospitalization fors for treatment of acute hypoxic and hypercapnic respiratory failure with copd- need therapy, IV steroids and antibiotics. monitering repiratory status advanced copd patient-so far minimum response to above treatments. Quality Stroke Does the patient have a stroke diagnosis?: No VTE Prior VTE?: No VTE Risk Level:: Medical - moderate - high VTE Device Contraindication: Treatment Not Indicated VTE Drug Contraindication: N/A - Med Ordered
[2023-06-08 11:58] LABS: Glucose, Whole Blood 242 mg/dL (60-115)
[2023-06-08 16:03] LABS: Glucose, Whole Blood 318 mg/dL (60-115)
[2023-06-08 20:20] LABS: Glucose, Whole Blood 358 mg/dL (60-115)
[2023-06-08] MEDS: Atorvastatin Calcium 20 MG TABLET PO (20:37)
[2023-06-08] MEDS: Montelukast Sodium 10 MG TABLET PO (20:37)
[2023-06-08] MEDS: Insulin Glargine,Hum.rec.anlog 100 UNIT/ML 10 ML VIAL 45 UNIT SUBCUT (20:38)
[2023-06-09] VITALS (7 sets, daily range): BP systolic 148–176; BP diastolic 78–93; PULSE 94–106; RESP 16–24; TEMP 36–36.6; O2SAT 96–99
[2023-06-09] MEDS: 0.9 % Sodium Chloride Flush 3 ML SYRINGE IVFLUSH ×2 (00:47→09:12)
[2023-06-09] MEDS: methylPREDNISolone Sod Succ 40 MG/ML VIAL IVPUSH ×2 (00:47→09:10)
[2023-06-09] MEDS: Albuterol/Iprat 2.5/0.5MG 3 ML AMPUL.NEB INHALE ×3 (03:41→11:09)
[2023-06-09] MEDS: Omeprazole 40 MG CAPSULE.DR PO (06:20)
[2023-06-09] MEDS: Budesonide 0.5 MG/2 ML AMPUL.NEB INHALE (07:37)
[2023-06-09 08:53] LABS: Glucose, Whole Blood 305 mg/dL (60-115)
[2023-06-09] MEDS: methADONE HCl 20 MG/2 ML ORAL.CONC 50 MG PO (09:09)
[2023-06-09] MEDS: lamoTRIgine 25 MG TABLET 150 MG PO (09:10)
[2023-06-09] MEDS: polyethylene glycoL 3350 17 GM POWD.PACK PO (09:10)
[2023-06-09] MEDS: Loratadine 10 MG TABLET PO (09:10)
[2023-06-09] MEDS: Enoxaparin Sodium 40 MG/0.4 ML SYRINGE SUBCUT (09:10)
[2023-06-09] MEDS: dilTIAZem HCL CD 180 MG CAP.ER.24H 360 MG PO (09:10)
[2023-06-09] MEDS: metFORMIN HCl ER 500 MG TAB.ER.24H PO (09:11)
[2023-06-09] MEDS: hydrALAZINE HCl 25 MG TABLET PO (09:11)
[2023-06-09] MEDS: Furosemide 40 MG TABLET PO (09:11)
[2023-06-09] MEDS: Roflumilast 500 MCG TABLET PO (09:11)
[2023-06-09] MEDS: Insulin Lispro 100 UNIT/ML 3 ML VIAL SUBCUT (09:11)
[2023-06-09] MEDS: acetaZOLAMIDE 250 MG TABLET PO (09:11)
[2023-06-09] MEDS: Folic Acid 1 MG TABLET PO (09:11)
[2023-06-09] MEDS: Doxycycline Monohydrate 100 MG CAPSULE PO (09:11)
[2023-06-09] MEDS: Gabapentin 300 MG CAPSULE PO (09:14)
--- NOTE | 2023-06-09 10:52 | PM.DS ---
DS: Providers Provider Date of Service: 06/09/23 Date of admission: 06/05/23 21:06 Date of discharge: 06/09/23 Primary care physician: Kelli Benavides MD Attending physician on discharge: Marielos Guillermo Discharging clinician: Marielos Guillermo DS: Diagnosis Discharge Diagnosis (1) Acute and chronic respiratory failure with hypercapnia: Status: Acute DS: Summary Hospital Course Hospital Course: 53 years old woman with past medical history significant for chronic hypoxic and hypercapnic respiratory failure/COPD -on home oxygen 2L/min, HFpEF,morbid obesity, obstructive sleep apnea on BiPAP, type 2 diabetes mellitus, essential hypertension and hyperlipidemia presents to the emergency department complaining of worsening shortness of breath since last night associated with somnolence, wheezing, cough and nausea. She denied any associated chest pain, abdominal pain, vomiting, fevers or chills. Patient was recently discharged from the hospital due to acute on chronic respiratory failure. She also was treated with a course of doxycycline for right lower extremity cellulitis. In the ED, she was found to have tachypnea and tachycardia. She was placed on rescue BiPAP. Her initial venous gas showed mild respiratory acidosis. Venous gas was repeated after trial with rescue BiPAP and showed pH of 7.45, pCO2 60 which is around her baseline. She is currently requiring 2 L/min supplemental oxygen. Blood workup showed marked leukocytosis, 20.3. Elevated CO2 36. Renal function is adequate. LFTs lactic acid are normal. Troponin is 9.8. CXR showed no acute cardiopulmonary disease. ECG showed sinus tachycardia incomplete right bundle-branch block. ED tx: Magnesium 1 g IV, Solu-Medrol 60 mg IV. Hospital course: Patient was initially admitted for acute on chronic hypercapnic respiratory failure secondary to COPD exacerbation: Found to have leukocytosis, chest x-ray negative, venous duplex study of right lower extremity also negative, blood cultures sent. Patient was started on nebs, steroids, doxycycline, also use her home BiPAP: With the supportive care patient seems to be improved significantly, her shortness of breath improved to baseline, no fever, leukocytosis also improving, blood culture negative at 48 hours. Patient will be going home with p.o. steroids 40 mg daily for 4 days, also doxycycline 100 mg p.o. b.i.d. for 6 days. Patient was strongly advised to follow-up with PCP and Pulmonary outpatient. plan: complete prednisone 40 mg dailyx4 days complete doxycycline 100 mg p.o. b.i.d. for 6 days. Above management discussed with the patient in detail length she understand and agreement with the above plan, time spent 40 minute Time Attestation Total time managing care of this patient today: 40 mintues. Discharge Coordination Time (in mins): 40 min Quality: Safe Use of Opioids Does Pt have an Active Cancer Diagnosis on the Problem List?: No Quality: Stroke Does the patient have a stroke diagnosis?: No Physical Exam Vital Signs: Vital Signs: Last Vital Signs Temp 97.9 F 06/09/23 08:00 Pulse 99 06/09/23 08:00 Resp 24 H 06/09/23 08:00 BP 148/78 H 06/09/23 08:00 Pulse Ox 96 06/09/23 08:00 O2 Del Method BiPAP 06/09/23 03:24 O2 Flow Rate 2 06/08/23 19:39 FiO2 25 06/08/23 15:38 BMI result Body Mass Index 40.7 Appearance: Alert.? Oriented X3.feels sob with little excersion. cvs: rrr, [id number] , no murmur res:air entry seems little improving ,has b/l exp wheezing abd: no rebound or guarding ,nt, bs present. ext pulses present , no cyanosis . neuro: axo3 , nonfocal. DS: Data Data Completed and Pending Completed studies during hospitalization [Text1]: Procedures Assistance with Respiratory Ventilation, 24-96 Consecutive Hours, Continuous Positive Airway Pressure (02/21/23) Assistance with Respiratory Ventilation, Less than 24 Consecutive Hours, Continuous Positive Airway Pressure (06/03/23) Insertion of Endotracheal Airway into Trachea, Via Natural or Artificial Opening (12/21/22) Insertion of Infusion Device into Right Atrium, Percutaneous Approach (12/21/21) Insertion of Infusion Device into Right Brachial Vein, Percutaneous Approach (07/28/22) Insertion of Infusion Device into Superior Vena Cava, Percutaneous Approach (12/21/22) Insertion of Infusion Device into Upper Vein, Percutaneous Approach (02/21/23) Introduction of Vasopressor into Peripheral Vein, Percutaneous Approach (12/21/21) Respiratory Ventilation, 24-96 Consecutive Hours (12/21/22) Ultrasonography of Superior Vena Cava, Guidance (12/21/22) Labs on day of discharge: Laboratory Results - last 24 hr 06/08/23 06/08/23 06/08/23 11:48 15:58 20:17 POC Glucose 242 H 318 H 358 H* 06/09/23 08:50 POC Glucose 305 H Preliminary micro results at discharge 06/05/23 15:16 Blood Culture - Preliminary Blood - Venous No growth after 48 hours. 06/05/23 15:54 Blood Culture - Preliminary Blood - Venous No growth after 48 hours. Imaging Chest x-ray: Radiologist's impression: ITS Impressions Chest X-Ray 06/05/23 15:57 IMPRESSION: Unremarkable chest examination. Venous Duplex 06/05/23 20:51 IMPRESSION: No DVT demonstrated in the right lower extremity. Discharge Plan Discharge Anticipated Discharge Date/Time: 06/09/23 10:31 Patient Disposition: Home, Self-Care Discharge Diagnosis: Acute on chronic hypercapnic respiratory failure possible sec to copd execerebation Referrals: Kelli Benavides MD [Primary Care Provider] - 1 Week Discharge Medications: New prednisone 20 mg tablet 40 mg PO DAILY Qty: 8 0RF Continued gabapentin 300 mg capsule 300 mg PO BID Qty: 60 11RF albuterol sulfate [ProAir HFA] 90 mcg/actuation HFA aerosol inhaler 2 puff inhalation Q4H PRN (Reason: Shortness Of Breath Or Wheezing) Qty: 1 0RF omeprazole 40 mg capsule,delayed release(DR/EC) 40 mg PO DAILY@0630 30 Days Qty: 30 6RF furosemide 20 mg tablet 40 mg PO DAILY 90 Days Qty: 180 0RF prednisone 10 mg tablet 30 mg PO DAILY 30 Days Qty: 90 3RF ipratropium-albuterol 0.5 mg-3 mg(2.5 mg base)/3 mL solution for nebulization 3 ml PO Q4H PRN (Reason: for wheezing) Qty: 540 6RF diltiazem HCl [Tiadylt ER] 360 mg capsule,extended release 24 hr 360 mg PO DAILY rosuvastatin 5 mg tablet 5 mg PO BEDTIME roflumilast [Daliresp] 500 mcg tablet 500 mcg PO DAILY metformin 500 mg tablet extended release 24 hr 500 mg PO DAILY hydralazine 25 mg tablet 25 mg PO TIDWM insulin lispro 100 unit/mL solution 4 unit subcut TIDAC PRN (Reason: Hyperglycemia) Rx Instructions: per sliding scale methadone 10 mg/mL Concentrate 50 mg PO DAILY Patient Comments: [facility] lamotrigine 150 mg tablet 150 mg PO BID calcitonin (salmon) 200 unit/actuation spray,non-aerosol 1 spray intranasal DAILY Rx Instructions: one nostril every day, alternate sides. insulin glargine [Lantus U-100 Insulin] 100 unit/mL solution 45 unit subcut BEDTIME docusate sodium 100 mg capsule 100 mg PO BID PRN (Reason: constipation) acetazolamide 250 mg tablet 250 mg PO DAILY doxycycline hyclate 100 mg capsule 100 mg PO DAILY Qty: 12 0RF Rx Instructions: X 7 days clonazepam 1 mg tablet 1 mg PO BID PRN (Reason: Anxiety) polyethylene glycol 3350 [Miralax] 17 gram/dose powder 17 g PO DAILY ammonium lactate 12 % lotion 1 appl topical DAILY sulfamethoxazole-trimethoprim 400-80 mg tablet 1 tab PO DAILY zolpidem 5 mg tablet 5 mg PO BEDTIME PRN (Reason: Sleep) Rx Instructions: use with 100% BIPAP compliance only diclofenac sodium 1 % gel 4 g TOPICAL QID PRN (Reason: Pain) cholecalciferol (vitamin D3) 1,250 mcg (50,000 unit) capsule 1,250 mcg PO 2XW lidocaine 5 % adhesive patch,medicated 1 patch topical QAM PRN (Reason: Pain) montelukast 10 mg tablet 10 mg PO BEDTIME loratadine [Claritin] 10 mg tablet 10 mg PO DAILY (DME) compress.stocking,knee,reg,med Misc See Rx Instructions .Route Qty: 2 0RF Rx Instructions: 15-20 cm arformoterol [Brovana] 15 mcg/2 mL solution for nebulization 2 ml inhalation Q12H 30 Days Qty: 120 11RF budesonide 0.5 mg/2 mL suspension for nebulization 0.5 mg inhalation BID Qty: 120 11RF tiotropium bromide [Spiriva with HandiHaler] 18 mcg capsule, w/inhalation device 1 cap inhalation DAILY Qty: 30 11RF (DME) nebulizers Misc See Rx Instructions .ROUTE Rx Instructions: As directed folic acid 1 mg tablet 1 mg PO DAILY 30 Days Qty: 30 6RF Discharge Orders: Discharge Order (Routine); Ordered 06/09/23 Ordered By: Marielos Guillermo Diet: Advance to usual diet Activity on Discharge: As tolerated Stand Alone Forms: Patient Portal Discharge page Care Plan Goals: Patient was initially admitted for acute on chronic hypercapnic respiratory failure secondary to COPD exacerbation: Found to have leukocytosis, chest x-ray negative, venous duplex study of right lower extremity also negative, blood cultures sent. Patient was started on nebs, steroids, doxycycline, also use her home BiPAP: With the supportive care patient seems to be improved significantly, her shortness of breath improved to baseline, no fever, leukocytosis also improving, blood culture negative at 48 hours. Patient will be going home with p.o. steroids 40 mg daily for 4 days, also doxycycline 100 mg p.o. b.i.d. for 6 days. Patient was strongly advised to follow-up with PCP and Pulmonary outpatient. Health Concerns: As above. Plan of Treatment: As above. Assessment: As above.
[2023-06-09 11:41] LABS: Glucose, Whole Blood 278 mg/dL (60-115)
--- NOTE | 2023-06-09 13:40 | MHC.CM.PN ---
Pt is medically cleared for D/C home self-care, pt has arranged for their own ride home.
== END 2023-06-09 13:00 | disposition home or self-care (01) | DRG 140 ==
LOC: HO.ED 21:36 → HO.EDOVER 22:39 → HO.IMC 06-06 17:48
PROVIDERS: Physician Assistant; Physician Assistant Medical; Admitting Provider Internal Medicine; Emergency Provider Emergency Medicine; PCP Family Medicine; Visit Provider Internal Medicine
DX: J44.1 Chronic obstructive pulmonary disease with (acute) exacerbation (principal); J96.21 Acute and chronic respiratory failure with hypoxia; I50.32 Chronic diastolic (congestive) heart failure; I11.0 Hypertensive heart disease with heart failure; J96.22 Acute and chronic respiratory failure with hypercapnia; Z68.41 Body mass index [BMI] 40.0-44.9, adult; E66.01 Morbid (severe) obesity due to excess calories; Z99.81 Dependence on supplemental oxygen; K21.9 Gastro-esophageal reflux disease without esophagitis; L03.115 Cellulitis of right lower limb; F11.20 Opioid dependence, uncomplicated; Z20.822 Contact with and (suspected) exposure to COVID-19; Z79.52 Long term (current) use of systemic steroids; Z79.899 Other long term (current) drug therapy
CPT/HCPCS: 0241U; 36415; 71045; 80053; 81001; 82803; 82947; 83605; 83735; 84484; 85025; 85610; 85730; 87040; 93005; 93971; 94640; 94660; 99285; J1650; J2920; J2930; J3475

== ENCOUNTER → 2023-06-05 14:46 | Outpatient (BNV) | payer MEDICAID, SELFPAY | PROVIDERS: Admitting Provider Internal Medicine; Emergency Provider Emergency Medicine; PCP Family Medicine; Visit Provider Internal Medicine | DX: R00.0 Tachycardia, unspecified (principal) | CPT/HCPCS: 93010 ==

== ENCOUNTER → 2023-06-05 21:06 | Outpatient (BNV) | payer MEDICAID, SELFPAY | PROVIDERS: Admitting Provider Internal Medicine; Emergency Provider Emergency Medicine; PCP Family Medicine; Visit Provider Internal Medicine | DX: J96.22 Acute and chronic respiratory failure with hypercapnia (principal) | CPT/HCPCS: 99223; 99232; 99239 ==

== ENCOUNTER 2023-06-23 23:16 | Inpatient (IN) | payer MEDICAID, SELFPAY ==
--- NOTE | ~2023-06-23 | XR_ITS ---
EXAMINATION: XR CHEST CLINICAL INFORMATION: Shortness of breath. COMPARISON: 06/05/2023 TECHNIQUE: Frontal view of the chest was obtained. FINDINGS: The lung volumes are low. The cardiomediastinal silhouette is stable. There is no focal lung consolidation or pleural effusion. The bony structures and soft tissues are unremarkable. XR/XR chest 1V IMPRESSION: Low lung volumes. No acute cardiopulmonary process.
[2023-06-23 23:19] VITALS: BP 155/98; PULSE 114; RESP 19; TEMP 36.9; O2SAT 96; BMI 40.1
[2023-06-23] MEDS: Albuterol Sulfate 5 MG, Albuterol/Iprat 2.5/0.5MG 3 ML 3 ML INHALE (23:33)
[2023-06-23 23:35] VITALS: PULSE 111; RESP 16; O2SAT 96
[2023-06-23 23:42] VITALS: PULSE 116; RESP 18; O2SAT 99
[2023-06-24] VITALS (14 sets, daily range): BP systolic 152–169; BP diastolic 87–97; PULSE 96–117; RESP 17–33; TEMP 36.7; O2SAT 94–98
--- NOTE | 2023-06-24 00:04 | ED.GENADULT ---
HPI - General Adult General Chief complaint: Dyspnea Stated complaint: sob Time Seen by Provider: 06/23/23 23:40 History of Present Illness HPI narrative: The patient is a 53-year-old woman with a history of severe chronic lung disease. She has COPD and has been hospitalized multiple times for hypercapnic respiratory failure. She is on chronic steroids, currently she says she is on 30 mg of prednisone daily. The patient was most recently hospitalized at this hospital approximately 3 weeks ago. She was hospitalized for 4 days. The patient says that she was feeling pretty well until yesterday when she started to feel that her usual shortness of breath was worsening. It was considerably worse today and she called an ambulance and was brought to the hospital. The patient has redness and swelling to the right leg. She has had this before. She has had multiple ultrasounds of the right leg out of concern for a possible DVT. She has never been found to have a DVT. She says that the swelling and redness of the right leg wax and wane without clear reason. No fevers. Related Data Home Medications ?Medication ?Instructions ?Recorded ?Confirmed loratadine 10 mg tablet (Claritin) 10 mg PO DAILY 12/30/19 06/05/23 montelukast 10 mg tablet 10 mg PO BEDTIME 12/30/19 06/05/23 diltiazem HCl 360 mg capsule,24 360 mg PO DAILY 11/16/20 06/05/23 hr,extended release (Tiadylt ER) roflumilast 500 mcg tablet 500 mcg PO DAILY 11/16/20 06/05/23 (Daliresp) rosuvastatin 5 mg tablet 5 mg PO BEDTIME 11/16/20 06/05/23 metformin 500 mg tablet,extended 500 mg PO DAILY 05/18/21 06/05/23 release 24 hr methadone 10 mg/mL oral concentrate 50 mg PO DAILY 06/06/21 06/06/23 hydralazine 25 mg tablet 25 mg PO TIDWM 11/02/21 06/05/23 insulin lispro 100 unit/mL 4 unit subcut TIDAC PRN 11/02/21 06/05/23 subcutaneous solution Hyperglycemia clonazepam 1 mg tablet 1 mg PO BID PRN Anxiety 06/28/22 06/05/23 lamotrigine 150 mg tablet 150 mg PO BID 07/29/22 06/05/23 calcitonin (salmon) 200 1 spray intranasal DAILY 09/30/22 06/05/23 unit/actuation nasal spray insulin glargine 100 unit/mL 45 unit subcut BEDTIME 09/30/22 06/05/23 subcutaneous solution (Lantus U-100 Insulin) docusate sodium 100 mg capsule 100 mg PO BID PRN constipation 10/20/22 06/05/23 nebulizers 11/08/22 04/08/23 polyethylene glycol 3350 17 17 g PO DAILY constipation 12/21/22 06/05/23 gram/dose oral powder (Miralax) ammonium lactate 12 % lotion 1 appl topical DAILY Rash 02/02/23 06/05/23 sulfamethoxazole 400 1 tab PO DAILY 04/08/23 06/05/23 mg-trimethoprim 80 mg tablet diclofenac sodium 1 % topical gel 4 g topical QID PRN Pain 05/04/23 06/05/23 zolpidem 5 mg tablet 5 mg PO BEDTIME PRN Sleep 05/04/23 06/05/23 cholecalciferol (vitamin D3) 1,250 1,250 mcg PO 2XW 05/19/23 06/05/23 mcg (50,000 unit) capsule lidocaine 5 % topical patch 1 patch topical QAM PRN Pain 05/19/23 06/05/23 acetazolamide 250 mg tablet 250 mg PO DAILY 06/01/23 06/05/23 Previous Rx's ?Medication ?Instructions ?Recorded folic acid 1 mg tablet 1 mg PO DAILY 30 days #30 tabs 12/19/22 gabapentin 300 mg capsule 300 mg PO BID #60 caps 01/14/23 albuterol sulfate 90 mcg/actuation 2 puff inhalation Q4H PRN 02/19/23 aerosol inhaler (ProAir HFA) Shortness Of Breath Or Wheezing #1 ea arformoterol 15 mcg/2 mL solution 2 ml inhalation Q12H 30 days #120 02/20/23 for nebulization (Brovana) mL budesonide 0.5 mg/2 mL suspension 0.5 mg (2 mL) inhalation BID #120 02/20/23 for nebulization mL compress.stocking,knee,reg,med #2 ea 02/20/23 tiotropium bromide 18 mcg capsule 1 cap inhalation DAILY #30 ea 02/20/23 with inhalation device (Spiriva with HandiHaler) omeprazole 40 mg capsule,delayed 40 mg PO DAILY@0630 30 days #30 03/31/23 release caps furosemide 20 mg tablet 40 mg (2 x 20 mg) PO DAILY 90 days 05/06/23 #180 tabs prednisone 10 mg tablet 30 mg (3 x 10 mg) PO DAILY 30 days 05/12/23 #90 tabs ipratropium 0.5 mg-albuterol 3 mg 3 ml PO Q4H PRN for wheezing #540 06/05/23 (2.5 mg base)/3 mL nebulization mL soln doxycycline hyclate 100 mg capsule 100 mg PO DAILY #12 caps 06/09/23 prednisone 20 mg tablet 40 mg (2 x 20 mg) PO DAILY #8 tabs 06/09/23 Allergies Allergy/AdvReac Type Severity Reaction Status Date / Time No Known Allergies Allergy Verified 06/23/23 23:24 [No Known Allergies*] Review of Systems Review of Systems: Yes all other systems are reviewed and are negative [facility] Past Medical History Medical History (Updated 06/24/23 @ 02:52 by Barry Gonzáles MD) Type 2 diabetes mellitus Opioid dependence Constipation Salmonella gastroenteritis CHITO (obstructive sleep apnea) Obesity with alveolar hypoventilation Congestive heart failure Chronic constipation Acute respiratory failure Hypertensive cardiovascular disease Pulmonary nodule Chronic respiratory failure Tobacco abuse Asthma-COPD overlap syndrome Hyperlipidemia, unspecified Essential hypertension Chronic respiratory failure Surgical History H/O tubal ligation Family History Family History Father Diabetes Other Asthma Social History Social History Household Members: Children Household Members Other:: daughter Housing: Apartment Do you presently have visiting nurse or other home services: Yes Unable to assess alcohol history related to: Unknown Alcohol intake: never Comment: patient refusing bed alarm Patient Tobacco Use Status: Former Tobacco user Quit Date: February 2022 Tobacco use type: Cigarette Cigarettes Per Day: 1 Years Smoked: 35 e-Cigarette/Vaping Use: Currently Using Second Hand Smoke Exposure: No Substance Use Type: Opiates Advance Directives: Yes Advance Directives on File: Yes Advance Directives Date on File: 06/12/21 service: No Current occupational status: unemployed and disabled Physical Exam ED Vital Signs: Vital Signs - 24 hr 06/23/23 23:19 06/23/23 23:35 06/23/23 23:42 Temperature 98.5 F Pulse Rate 114 H 111 H Respiratory Rate 19 16 18 Blood Pressure 155/98 H Pulse Oximetry 96 Oxygen Delivery Method Nasal Cannula 06/24/23 01:13 Temperature Pulse Rate 107 H Respiratory Rate 18 Blood Pressure Pulse Oximetry Oxygen Delivery Method BMI result Body Mass Index 40.1 Const Other: The patient is awake and alert. She had already been given BiPAP at the time that I saw her. She seemed to be tolerating the BiPAP well. The patient is a very chronically ill-appearing 53-year-old. She looks much older than her age. She has an extremely cushingoid appearance. HENMT Other: Face is symmetrical. Mucous membranes moist. Eyes Other: Pupils are round equal, conjunctivae are clear Neck Other: The patient has a very thick, short neck. No apparent JVD or other obvious abnormality otherwise. Resp Other: Some wheezes bilaterally. The patient was on BiPAP at the time of my exam. Cardio Rate: tachycardic Rhythm: regular rhythm Heart sounds: S1 normal heart sound present and S2 normal heart sound present GI Other: The patient has a protuberant abdomen which is soft and nontender. Skin Other: The skin is unremarkable aside from the skin of the right leg which is diffusely mildly erythematous and mildly edematous. Neuro Other: The patient is awake and alert. She seemed quite animated when she spoke through the BiPAP mask. She seems grossly neurologically intact. Extrem Other: There is some mild swelling of the right leg compared to the left. The skin of the right leg is mildly erythematous and edematous. Medications Administered Discontinued Medications Generic Name Dose Route Start Last Admin Trade Name Freq PRN Reason Stop Dose Admin Albuterol Sulfate 5 mg/ 0 mg 06/23/23 23:32 06/23/23 23:33 Albuterol/Ipratropium 3 ml INHALE 06/23/23 23:33 2.5 each ONCE ONE Administration Albuterol Sulfate 2.5 mg/ 0 mg 06/24/23 00:06 06/24/23 01:13 Albuterol/Ipratropium 3 ml INHALE 06/24/23 00:07 1 dose ONCE ONE Administration Magnesium Sulfate 2 gm in 50 mls @ 150 mls/hr 06/24/23 01:33 06/24/23 02:18 Magnesium Sulfate/H2o IV 06/24/23 01:52 Infused ONCE ONE Infusion Methylprednisolone Sodium Succinate 80 mg 06/24/23 01:26 06/24/23 01:58 Methylprednisolone Sod Succ 125 Mg/2 Ml Vial IVPUSH 06/24/23 01:27 80 mg ONCE ONE Administration Medical Decision Making Medical Decision Making [facility] Narrative: The patient is a 53-year-old woman with severe chronic lung disease chronic steroids who presents with acute shortness of breath. Chest x-ray unremarkable. Her VBG shows a pH of 7.38, pCO2 of 76 suggesting a compensated respiratory acidosis. White blood count is 11.9. CRP is 0.76. Chest x-ray shows no infiltrate. I suspect that this is an exacerbation of her chronic lung disease rather than a septic process. She was placed on BiPAP here. She was given bronchodilator treatments. She was given IV steroids and IV magnesium. Respiratory therapy is very familiar with this the patient. Apparently the patient is on home positive pressure ventilation so often that when she is admitted on BiPAP she is kept on her home settings and admitted to the medical floor. The patient's right leg is mildly red and mildly swollen. The patient reports this happens to her leg from time to time and it has been evaluated for a DVT in the past and no DVT has ever been found. Reviewing her chart she had a venous duplex ultrasound on 06/05/2023, May 19 2023, and February 27, 2023, all of which have been negative for right leg DVTs. Lab Data 06/24/23 01:53 06/24/23 01:53 Labs: Lab Results 06/24/23 06/24/23 Range/Units 01:53 02:05 WBC 11.9 H (4.8-10.8) X10*3/uL RBC 3.78 L (4.20-5.50) X10*6/uL Hgb 11.7 L (12.0-16.0) g/dl Hct 37.6 (37.0-47.0) % MCV 99.5 H (80.0-98.0) fL MCH 31.0 (27.0-33.0) pg MCHC 31.1 (31.0-35.0) g/dl RDW 13.7 (11.0-16.0) % Plt Count 228 (160-400) X10*3/uL MPV 9.0 L (9.4-12.3) fL Immature Gran % (Auto) 1.2 H (0.0-0.4) % Neut % (Auto) 89.3 H (45-73) % Lymph % (Auto) 5.5 L (20-40) % [place] % (Auto) 3.5 (2-11) % Eos % (Auto) 0.2 (0-4) % Baso % (Auto) 0.3 (0-2) % Lymph # (Auto) 0.7 L (1.2-4.9) X10*3/uL [place] # (Auto) 0.4 (0.1-1.2) X10*3/uL Eos # (Auto) 0.0 (0.0-0.4) X10*3/uL Baso # (Auto) 0.0 (0.0-0.2) X10*3/uL Abs Immat Gran (auto) 0.14 H (0.00-0.03) X10*3/uL Absolute Neuts (auto) 10.6 H (2.0-8.3) x10*3/uL Absolute Nucleated RBC 0.000 (0.0-0.012) X10*3/uL Nucleated RBC % (auto) 0.0 (0.0-0.2) /100WBC VBG pH 7.38 (7.32-7.43) VBG pCO2 76 mmHg VBG pO2 56 mmHg VBG HCO3 45 H (22-26) mmol/L VBG O2 Saturation 82.0 % VBG Base Excess 16.2 mmol/L Sodium 144 (135-145) mmol/L Potassium 4.4 (3.3-5.1) mmol/L Chloride 95 L (96-108) mmol/L Carbon Dioxide 38 H (22-29) mmol/L Anion Gap 15 (12-20) BUN 19 H (9-16) mg/dL Creatinine 0.67 (0.5-1.4) mg/dL Estim Creat Clear Calc 102.9 Estimated GFR > 60 Random Glucose 277 H (60-115) mg/dL Calcium 10.5 H D (8.4-10.2) mg/dL Magnesium 1.5 L (1.6-2.6) mg/dL Total Bilirubin 0.3 (0.0-1.0) mg/dL Direct Bilirubin 0.1 (0.0-0.5) mg/dL AST 17 (5-31) U/L ALT 25 (0-31) U/L Alkaline Phosphatase 52 (39-117) U/L Troponin I High Sens 16.1 D (<3.5-17.0) ng/L C-Reactive Protein 0.76 H (< or = 0.50) mg/dL Total Protein 6.9 (6.5-8.0) g/dL Albumin 3.9 (3.5-5.0) g/dL Independent Interpretation I performed an independent interpretation of an: [place]KG [place] 0009 shows sinus tachycardia at 107 beats per minute. There is an incomplete right bundle branch block. No significant change from previous EKG. Discharge Plan Discharge Patient Disposition: Home, Self-Care Prescriptions: No Action gabapentin 300 mg capsule 300 mg PO BID Qty: 60 11RF albuterol sulfate [ProAir HFA] 90 mcg/actuation HFA aerosol inhaler 2 puff inhalation Q4H PRN (Reason: Shortness Of Breath Or Wheezing) Qty: 1 0RF omeprazole 40 mg capsule,delayed release(DR/EC) 40 mg PO DAILY@0630 30 Days Qty: 30 6RF furosemide 20 mg tablet 40 mg PO DAILY 90 Days Qty: 180 0RF prednisone 10 mg tablet 30 mg PO DAILY 30 Days Qty: 90 3RF ipratropium-albuterol 0.5 mg-3 mg(2.5 mg base)/3 mL solution for nebulization 3 ml PO Q4H PRN (Reason: for wheezing) Qty: 540 6RF diltiazem HCl [Tiadylt ER] 360 mg capsule,extended release 24 hr 360 mg PO DAILY rosuvastatin 5 mg tablet 5 mg PO BEDTIME roflumilast [Daliresp] 500 mcg tablet 500 mcg PO DAILY metformin 500 mg tablet extended release 24 hr 500 mg PO DAILY hydralazine 25 mg tablet 25 mg PO TIDWM insulin lispro 100 unit/mL solution 4 unit subcut TIDAC PRN (Reason: Hyperglycemia) Rx Instructions: per sliding scale methadone 10 mg/mL Concentrate 50 mg PO DAILY Patient Comments: [facility] lamotrigine 150 mg tablet 150 mg PO BID calcitonin (salmon) 200 unit/actuation spray,non-aerosol 1 spray intranasal DAILY Rx Instructions: one nostril every day, alternate sides. insulin glargine [Lantus U-100 Insulin] 100 unit/mL solution 45 unit subcut BEDTIME docusate sodium 100 mg capsule 100 mg PO BID PRN (Reason: constipation) acetazolamide 250 mg tablet 250 mg PO DAILY doxycycline hyclate 100 mg capsule 100 mg PO DAILY Qty: 12 0RF Rx Instructions: X 7 days prednisone 20 mg tablet 40 mg PO DAILY Qty: 8 0RF clonazepam 1 mg tablet 1 mg PO BID PRN (Reason: Anxiety) polyethylene glycol 3350 [Miralax] 17 gram/dose powder 17 g PO DAILY ammonium lactate 12 % lotion 1 appl topical DAILY sulfamethoxazole-trimethoprim 400-80 mg tablet 1 tab PO DAILY zolpidem 5 mg tablet 5 mg PO BEDTIME PRN (Reason: Sleep) Rx Instructions: use with 100% BIPAP compliance only diclofenac sodium 1 % gel 4 g TOPICAL QID PRN (Reason: Pain) cholecalciferol (vitamin D3) 1,250 mcg (50,000 unit) capsule 1,250 mcg PO 2XW lidocaine 5 % adhesive patch,medicated 1 patch topical QAM PRN (Reason: Pain) montelukast 10 mg tablet 10 mg PO BEDTIME loratadine [Claritin] 10 mg tablet 10 mg PO DAILY (DME) compress.stocking,knee,reg,med Misc See Rx Instructions .Route Qty: 2 0RF Rx Instructions: 15-20 cm arformoterol [Brovana] 15 mcg/2 mL solution for nebulization 2 ml inhalation Q12H 30 Days Qty: 120 11RF budesonide 0.5 mg/2 mL suspension for nebulization 0.5 mg inhalation BID Qty: 120 11RF tiotropium bromide [Spiriva with HandiHaler] 18 mcg capsule, w/inhalation device 1 cap inhalation DAILY Qty: 30 11RF (DME) nebulizers Misc See Rx Instructions .ROUTE Rx Instructions: As directed folic acid 1 mg tablet 1 mg PO DAILY 30 Days Qty: 30 6RF Print Language: Estonian
--- NOTE | 2023-06-24 00:05 | ECG_ITS ---
Test Reason : DYSPNEA Blood Pressure : / mmHG Vent. Rate : 107 BPM Atrial Rate : 107 BPM P-R Int : 130 ms QRS Dur : 096 ms QT Int : 346 ms P-R-T Axes : 059 012 043 degrees QTc Int : 461 ms Sinus tachycardia Incomplete right bundle branch block Inferior infarct (cited on or before 01-JUN-2023) Abnormal ECG When compared with ECG of 05-JUN-2023 15:02, No significant change was found Referred By: Barry Gonzáles Electronically Signed By:Harris Phillips
[2023-06-24] MEDS: Albuterol Sulfate 2.5 MG, Albuterol/Iprat 2.5/0.5MG 3 ML 3 ML INHALE (01:13)
[2023-06-24] MEDS: Magnesium Sulfate/H2O 2 GM/50 ML PIGGYBACK IV (01:58)
[2023-06-24] MEDS: methylPREDNISolone Sod Succ 125 MG/2 ML VIAL 80 MG IVPUSH (01:58)
[2023-06-24 02:10] LABS: MANUAL DIFF FLAG NO
[2023-06-24 02:11] LABS: Basophils Percent Auto 0.3 % (0-2); Eosinophils Percent Auto 0.2 % (0-4); Hematocrit 37.6 % (37.0-47.0); Hemoglobin 11.7 g/dl (12.0-16.0); Imm Gran Abs Auto 0.14 X10*3/uL (0.00-0.03); Imm Gran Pct Auto 1.2 % (0.0-0.4); Lymphocytes Absolute Auto 0.7 X10*3/uL (1.2-4.9); Lymphocytes Percent Auto 5.5 % (20-40); Mean Corpuscular HGB Conc 31.1 g/dl (31.0-35.0); Mean Corpuscular Volume 99.5 fL (80.0-98.0); Monocytes Absolute Auto 0.4 X10*3/uL (0.1-1.2); Monocytes Percent Auto 3.5 % (2-11); Neutrophils Absolute Auto 10.6 x10*3/uL (2.0-8.3); Neutrophils Percent Auto 89.3 % (45-73); Platelet Count 228 X10*3/uL (160-400); Red Blood Count 3.78 X10*6/uL (4.20-5.50); Red Cell Distribution Width 13.7 % (11.0-16.0); White Blood Count 11.9 X10*3/uL (4.8-10.8)
[2023-06-24 02:12] LABS: Venous Blood Gas Refer to POC result
[2023-06-24 02:12] LABS: VBG Base Excess 16.2 mmol/L; VBG HCO3 45 mmol/L (22-26); VBG pCO2 76 mmHg; VBG pH 7.38 (7.32-7.43); VBG pO2 56 mmHg
[2023-06-24 02:24] LABS: Alanine Aminotransferase 25 U/L (0-31); Albumin Level 3.9 g/dL (3.5-5.0); Alkaline Phosphatase 52 U/L (39-117); Anion Gap 15 (12-20); Aspartate Amino Transferase 17 U/L (5-31); Bilirubin Direct 0.1 mg/dL (0.0-0.5); Bilirubin Total 0.3 mg/dL (0.0-1.0); Blood Urea Nitrogen 19 mg/dL (9-16); C Reactive Protein 0.76 mg/dL (< or = 0.50); Calcium 10.5 mg/dL (8.4-10.2); Carbon Dioxide 38 mmol/L (22-29); Chloride 95 mmol/L (96-108); Creatinine Clr Calc Pharmacy 102.9; Estimated Glomerular Filt Rate > 60; Glucose Random 277 mg/dL (60-115); Magnesium 1.5 mg/dL (1.6-2.6); Potassium 4.4 mmol/L (3.3-5.1); Sodium 144 mmol/L (135-145); Total Protein 6.9 g/dL (6.5-8.0)
[2023-06-24 02:31] LABS: Troponin-I High Sensitivity 16.1 ng/L (<3.5-17.0)
[2023-06-24 02:48] LABS: Influenza A PCR NEGATIVE (Negative); Influenza B PCR NEGATIVE (Negative); Resp Syncy Virus RNA Qual PCR NEGATIVE (Negative); SARS COV2 PCR INHOUSE NEGATIVE (Negative)
[2023-06-24 02:59] LABS: B Type Natriuretic Peptide 17 pg/mL (<100)
--- NOTE | 2023-06-24 03:14 | P.HPHOSP_ITS ---
History of Present Illness Date of Service: 06/24/23 Chief Complaint: Dyspnea This is a 53-year-old female with pertinent history of chronic hypoxemic hypercapnic respiratory failure due to asthma-COPD overlap syndrome/OHS on 2 L baseline supplemental oxygen and nocturnal BiPAP, insulin-dependent diabetes mellitus, essential hypertension, mixed hyperlipidemia, opioid dependence on methadone, mood disorder, congestive heart failure with preserved ejection fraction who presents to the emergency department for evaluation of dyspnea. Patient states her symptoms started one day prior to presentation. She started having dyspnea which is worse with exertion. It was associated with wheezing. No relief with home O2 or home inhalers. Her symptoms have progressed over the last 24 hours. Patient denies chest pain, palpitations or cough. No fever, chills, abdominal pain, changes in urinary or bowel habits. No sick contacts. No orthopnea or PND In the emergency department, patient with wheezing despite multiple DuoNeb treatments. Review of Systems 2 Constitutional: Constitutional: Reports no additional constitutional complaints Cardiovascular: Cardiovascular: Reports dyspnea on exertion Respiratory: Respiratory: Reports dyspnea on exertion and Reports wheezing Gastrointestinal: Gastrointestinal: Reports no additional gastrointestinal complaints Genitourinary: Genitourinary: Reports no additional female genitourinary complaints Allergic/Immunologic: Allergic/Immunologic: Reports wheezing [facility] Medical History Type 2 diabetes mellitus Opioid dependence Constipation Salmonella gastroenteritis CHITO (obstructive sleep apnea) Obesity with alveolar hypoventilation Congestive heart failure Chronic constipation Acute respiratory failure Hypertensive cardiovascular disease Pulmonary nodule Chronic respiratory failure Tobacco abuse Asthma-COPD overlap syndrome Hyperlipidemia, unspecified Essential hypertension Chronic respiratory failure Family History Father Diabetes Other Asthma Surgical History H/O tubal ligation Social History Household Members: Children Household Members Other:: daughter Housing: Apartment Do you presently have visiting nurse or other home services: Yes Unable to assess alcohol history related to: Unknown Alcohol intake: never Comment: patient refusing bed alarm Patient Tobacco Use Status: Former Tobacco user Quit Date: February 2022 Tobacco use type: Cigarette Cigarettes Per Day: 1 Years Smoked: 35 e-Cigarette/Vaping Use: Currently Using Second Hand Smoke Exposure: No Substance Use Type: Opiates Advance Directives: Yes Advance Directives on File: Yes Advance Directives Date on File: 06/12/21 service: No Current occupational status: unemployed and disabled Meds Allergies Allergy/AdvReac Type Severity Reaction Status Date / Time No Known Allergies Allergy Verified 06/23/23 23:24 [No Known Allergies*] Home Medications ?Medication ?Instructions ?Recorded ?Confirmed ?Last Taken ?Type loratadine 10 mg tablet (Claritin) 10 mg PO DAILY 12/30/19 06/05/23 05/18/23 History montelukast 10 mg tablet 10 mg PO BEDTIME 12/30/19 06/05/23 05/18/23 History diltiazem HCl 360 mg capsule,24 360 mg PO DAILY 11/16/20 06/05/23 05/18/23 History hr,extended release (Tiadylt ER) roflumilast 500 mcg tablet 500 mcg PO DAILY 11/16/20 06/05/23 05/18/23 History (Daliresp) rosuvastatin 5 mg tablet 5 mg PO BEDTIME 11/16/20 06/05/23 05/18/23 History metformin 500 mg tablet,extended 500 mg PO DAILY 05/18/21 06/05/23 05/18/23 History release 24 hr methadone 10 mg/mL oral concentrate 50 mg PO DAILY 06/06/21 06/06/23 06/01/23 History hydralazine 25 mg tablet 25 mg PO TIDWM 11/02/21 06/05/23 05/18/23 History insulin lispro 100 unit/mL 4 unit subcut TIDAC PRN 11/02/21 06/05/23 05/18/23 History subcutaneous solution Hyperglycemia clonazepam 1 mg tablet 1 mg PO BID PRN Anxiety 06/28/22 06/05/23 Unknown History lamotrigine 150 mg tablet 150 mg PO BID 07/29/22 06/05/23 05/18/23 History calcitonin (salmon) 200 1 spray intranasal DAILY 09/30/22 06/05/23 05/18/23 History unit/actuation nasal spray insulin glargine 100 unit/mL 45 unit subcut BEDTIME 09/30/22 06/05/23 05/18/23 History subcutaneous solution (Lantus U-100 Insulin) docusate sodium 100 mg capsule 100 mg PO BID PRN constipation 10/20/22 06/05/23 Unknown History nebulizers 11/08/22 04/08/23 02/02/23 09:00 History polyethylene glycol 3350 17 17 g PO DAILY constipation 12/21/22 06/05/23 02/20/23 History gram/dose oral powder (Miralax) ammonium lactate 12 % lotion 1 appl topical DAILY Rash 02/02/23 06/05/23 05/18/23 History sulfamethoxazole 400 1 tab PO DAILY 04/08/23 06/05/23 05/18/23 History mg-trimethoprim 80 mg tablet diclofenac sodium 1 % topical gel 4 g topical QID PRN Pain 05/04/23 06/05/23 Unknown History zolpidem 5 mg tablet 5 mg PO BEDTIME PRN Sleep 05/04/23 06/05/23 Unknown History cholecalciferol (vitamin D3) 1,250 1,250 mcg PO 2XW 05/19/23 06/05/23 Unknown History mcg (50,000 unit) capsule lidocaine 5 % topical patch 1 patch topical QAM PRN Pain 05/19/23 06/05/23 Unknown History acetazolamide 250 mg tablet 250 mg PO DAILY 06/01/23 06/05/23 Unknown History Physical Exam 2 Vital Signs and Narrative: Vital Signs: Last Vital Signs Temp 98.5 F 06/23/23 23:19 Pulse 111 H 06/24/23 03:07 Resp 24 H 06/24/23 03:07 BP 155/97 H 06/24/23 03:07 Pulse Ox 95 06/24/23 03:07 O2 Del Method BiPAP 06/24/23 03:07 Oxygen Flow Rate 2 06/23/23 23:19 BMI result Body Mass Index 40.1 Middle-aged female lying in bed in mild distress on BiPAP Neck supple, no JVD Tachycardia with regular rhythm, S1-S2 heard Bilateral wheezing without crackles, tachypnea present Abdomen soft nontender, no guarding, no rigidity Patient is awake, alert and oriented to self, place, time and person ; no focal motor deficit Psych: Normal mood No pedal edema Results Labs 06/24/23 01:53 06/24/23 01:53 Labs: Laboratory Results - last 24 hr 06/24/23 06/24/23 01:53 02:05 MCV 99.5 H MCH 31.0 MCHC 31.1 RDW 13.7 Plt Count 228 MPV 9.0 L Immature Gran % (Auto) 1.2 H Neut % (Auto) 89.3 H Lymph % (Auto) 5.5 L [place] % (Auto) 3.5 Eos % (Auto) 0.2 Baso % (Auto) 0.3 Lymph # (Auto) 0.7 L [place] # (Auto) 0.4 Eos # (Auto) 0.0 Baso # (Auto) 0.0 Abs Immat Gran (auto) 0.14 H Absolute Neuts (auto) 10.6 H Absolute Nucleated RBC 0.000 Nucleated RBC % (auto) 0.0 VBG pH 7.38 VBG pCO2 76 VBG pO2 56 VBG HCO3 45 H VBG O2 Saturation 82.0 VBG Base Excess 16.2 Anion Gap 15 Estim Creat Clear Calc 102.9 Estimated GFR > 60 Random Glucose 277 H Calcium 10.5 H D Magnesium 1.5 L Total Bilirubin 0.3 Direct Bilirubin 0.1 AST 17 ALT 25 Alkaline Phosphatase 52 Troponin I High Sens 16.1 D C-Reactive Protein 0.76 H B-Natriuretic Peptide 17 Total Protein 6.9 Albumin 3.9 Influenza Type A (PCR) NEGATIVE Influenza Type B (PCR) NEGATIVE RSV RNA Qual (PCR) NEGATIVE SARS-CoV-2 RNA (RT-PCR) NEGATIVE Imaging Radiologist's Impressions: Impressions Chest X-Ray 06/24/23 00:10 IMPRESSION: Low lung volumes. No acute cardiopulmonary process. Assessment and Plan (1) Acute exacerbation of chronic obstructive pulmonary disease: Status: Acute Plan This is a 53-year-old female with pertinent history of chronic hypoxemic hypercapnic respiratory failure due to asthma-COPD overlap syndrome/OHS on 2 L baseline supplemental oxygen and nocturnal BiPAP, insulin-dependent diabetes mellitus, essential hypertension, mixed hyperlipidemia, opioid dependence on methadone, mood disorder who presents to the emergency department for evaluation of dyspnea. #. Acute respiratory distress on chronic hypoxemic hypercarbic respiratory failure due to exacerbation of asthma-COPD overlap syndrome: Will admit patient with supplemental oxygen, uses 2 L at baseline. Initiating systemic steroids. Scheduled and p.r.n. DuoNebs. Continue home inhalers. Continue nocturnal BiPAP. #. Tachycardia and tachypnea due to above. No sepsis #. Reactive leukocytosis due to steroid use #. Insulin-dependent diabetes mellitus with hyperglycemia: Initiating basal plus insulin regimen #. Essential hypertension: Continue home antihypertensives #. Mixed hyperlipidemia: On statin #. Opioid dependence on methadone #. Mood disorder: Continue home mood stabilizers #. Morbid obesity: Weight loss and diet modification #. Congestive heart failure with preserved ejection fraction: No exacerbation during admission. Continue home Lasix #. Gastroesophageal reflux disease: On PPI Med rec pending DVT prophylaxis: Lovenox Full code Admit as inpatient and will require two night minimum hospital stay for IV steroids, scheduled frequent bronchodilator therapy, close monitoring of respiratory status in a patient with frequent hospitalization due to exacerbation of obstructive lung disease and high risk for decompensation (as above), which is not possible in a lesser acute setting. Quality Stroke Does the patient have a stroke diagnosis?: No VTE Prior VTE?: No VTE Risk Level:: Medical - moderate - high VTE Device Contraindication: Treatment Not Indicated VTE Drug Contraindication: N/A - Med Ordered
[2023-06-24] MEDS: Enoxaparin Sodium 40 MG/0.4 ML SYRINGE SUBCUT (04:29)
[2023-06-24] MEDS: Albuterol/Iprat 2.5/0.5MG 3 ML AMPUL.NEB INHALE ×5 (04:41→19:45)
[2023-06-24 05:59] LABS: Basophils Percent Auto 0.2 % (0-2); Hematocrit 37.1 % (37.0-47.0); Hemoglobin 11.7 g/dl (12.0-16.0); Imm Gran Pct Auto 0.8 % (0.0-0.4); Lymphocytes Absolute Auto 0.2 X10*3/uL (1.2-4.9); MANUAL DIFF FLAG SCAN; Mean Corpuscular HGB Conc 31.5 g/dl (31.0-35.0); Mean Corpuscular Volume 98.1 fL (80.0-98.0); Mean Platelet Volume 9.3 fL (9.4-12.3); Monocytes Absolute Auto 0.2 X10*3/uL (0.1-1.2); Monocytes Percent Auto 1.3 % (2-11); Neutrophils Absolute Auto 11.6 x10*3/uL (2.0-8.3); Neutrophils Percent Auto 95.7 % (45-73); Platelet Count 220 X10*3/uL (160-400); Red Blood Count 3.78 X10*6/uL (4.20-5.50); Red Cell Distribution Width 13.6 % (11.0-16.0); SCAN SMEAR FLAG 1; White Blood Count 12.1 X10*3/uL (4.8-10.8)
[2023-06-24 06:08] LABS: Anion Gap 15 (12-20); Blood Urea Nitrogen 17 mg/dL (9-16); Calcium 10.1 mg/dL (8.4-10.2); Carbon Dioxide 36 mmol/L (22-29); Chloride 95 mmol/L (96-108); Creatinine Clr Calc Pharmacy 106.2; Estimated Glomerular Filt Rate > 60; Glucose Random 335 mg/dL (60-115); Potassium 4.2 mmol/L (3.3-5.1); Sodium 142 mmol/L (135-145)
[2023-06-24 06:41] LABS: SLIDE REVIEW VERIFIED
[2023-06-24 07:17] LABS: Glucose, Whole Blood 286 mg/dL (60-115)
[2023-06-24] MEDS: Insulin Lispro 100 UNIT/ML 3 ML VIAL SUBCUT ×4 (07:22→21:32)
[2023-06-24] MEDS: methylPREDNISolone Sod Succ 40 MG/ML VIAL IVPUSH ×2 (07:22→21:32)
[2023-06-24] MEDS: 0.9 % Sodium Chloride Flush 3 ML SYRINGE IVFLUSH ×2 (07:22→16:58)
--- NOTE | 2023-06-24 07:45 | PM.EVENT ---
Event Note Date of Service: 06/24/23 Event Note: This is a 53-year-old female with pertinent history of chronic hypoxemic hypercapnic respiratory failure due to asthma-COPD overlap syndrome/OHS on 2 L baseline supplemental oxygen and nocturnal BiPAP, insulin-dependent diabetes mellitus, essential hypertension, mixed hyperlipidemia, opioid dependence on methadone, mood disorder who presents to the emergency department for evaluation of dyspnea. Acute respiratory distress on chronic hypoxemic hypercarbic respiratory failure due to exacerbation of asthma-COPD overlap syndrome supplemental oxygen, uses 2 L at baseline. systemic steroids. Scheduled and p.r.n. DuoNebs. Continue home inhalers. Continue nocturnal BiPAP. Tachycardia and tachypnea due to above No sepsis Reactive leukocytosis due to steroid use Insulin-dependent diabetes mellitus with hyperglycemia Initiating basal plus insulin regimen Essential hypertension Continue home antihypertensives Mixed hyperlipidemia On statin Opioid dependence on methadone Mood disorder Continue home mood stabilizers Morbid obesity Weight loss and diet modification Congestive heart failure with preserved ejection fraction: No exacerbation during admission. Continue home Lasix Gastroesophageal reflux disease On PPI DVT prophylaxis: Loveliliya Attending Dr. Jones Full code Admit as inpatient and will require two night minimum hospital stay for IV steroids, scheduled frequent bronchodilator therapy, close monitoring of respiratory status in a patient with frequent hospitalization due to exacerbation of obstructive lung disease and high risk for decompensation (as above), which is not possible in a lesser acute setting. Time Spent With Patient Time: Total time managing care of this patient today ____ minutes.
--- NOTE | 2023-06-24 10:14 | PHA.MEDREC ---
Pharmacy Consult ? Medication Reconciliation Pharmacy has completed the medication reconciliation. Spray Machine Operator services utilized, patient frustrated in conversation. Says nothing has changed since last discharge. Asked about gabapentin and metformin, she says she has been taking despite no recent fill since august for metformin.
[2023-06-24 10:16] LABS: Magnesium 1.9 mg/dL (1.6-2.6)
--- NOTE | 2023-06-24 10:21 | MHC.CM.PN ---
Met with patient in regards to discharge planning. Patient's primary language is Amharic but is able to understand Greek and declines an sleeve presser operator at this time. Patient lives with her daughter, ambulates with a walker, has ENGINEERING TEST MECHANIC hours through [facility], Methadone through [facility] in [place] and oxygen through [facility]. Patient denies the need for additional services at d/c. PCP verified. Copy of HCP verified to be on file. Patient denies receiving any Covid vaccines. Patient's family or ENGINEERING TEST MECHANIC will transport patient home. Continue to monitor for d/c needs.
--- NOTE | 2023-06-24 11:25 | HE.PHANOTE ---
METHADONE: methadone dose: 50 mg daily, last dose was 06/23/23 by Aimee QUACH [facility] [place] [facility]. pt gets take home bottle, was given enough until 06/25/23, took home on 06/23/23.
[2023-06-24 11:43] LABS: Glucose, Whole Blood 260 mg/dL (60-115)
[2023-06-24] MEDS: methADONE HCl 20 MG/2 ML ORAL.CONC 50 MG PO (11:49)
[2023-06-24] MEDS: hydrALAZINE HCl 25 MG TABLET PO ×2 (11:51→17:29)
[2023-06-24] MEDS: lamoTRIgine 25 MG TABLET 150 MG PO ×2 (11:51→21:33)
[2023-06-24] MEDS: Furosemide 40 MG TABLET PO (11:51)
[2023-06-24] MEDS: Roflumilast 500 MCG TABLET PO (12:03)
[2023-06-24] MEDS: clonazePAM 1 MG TABLET PO (16:58)
--- NOTE | 2023-06-24 17:01 | PC.NURSE ---
pt requested prn clonazepam pt medicated according to mar
[2023-06-24 17:26] LABS: Glucose, Whole Blood 277 mg/dL (60-115)
[2023-06-24] MEDS: Budesonide 0.5 MG/2 ML AMPUL.NEB INHALE (19:45)
[2023-06-24 21:13] LABS: Glucose, Whole Blood 287 mg/dL (60-115)
[2023-06-24] MEDS: Montelukast Sodium 10 MG TABLET PO (21:33)
[2023-06-24] MEDS: Insulin Glargine,Hum.rec.anlog 100 UNIT/ML 10 ML VIAL 45 UNIT SUBCUT (21:33)
[2023-06-24] MEDS: Gabapentin 300 MG CAPSULE PO (21:34)
[2023-06-25] VITALS (12 sets, daily range): BP systolic 145–183; BP diastolic 87–97; PULSE 94–118; RESP 16–24; TEMP 36–36.9; O2SAT 77–98
--- NOTE | 2023-06-25 03:54 | MHC.EDTECH ---
Pt rang call lu stating my sugar is high. Informed RN, T/w checked blood sugar and it was 510. MAIN Taylor aware.
[2023-06-25 03:56] LABS: Glucose, Whole Blood 510 mg/dL (60-115)
[2023-06-25] MEDS: Enoxaparin Sodium 40 MG/0.4 ML SYRINGE SUBCUT (04:19)
[2023-06-25] MEDS: Insulin Regular, Human 100 UNIT/ML 3 ML VIAL 10 UNIT IVPUSH (04:20)
[2023-06-25] MEDS: Albuterol/Iprat 2.5/0.5MG 3 ML AMPUL.NEB INHALE ×4 (07:19→19:14)
[2023-06-25] MEDS: Budesonide 0.5 MG/2 ML AMPUL.NEB INHALE ×2 (07:20→19:14)
[2023-06-25 07:58] LABS: Glucose, Whole Blood 180 mg/dL (60-115)
[2023-06-25] MEDS: Loratadine 10 MG TABLET PO (09:14)
[2023-06-25] MEDS: Gabapentin 300 MG CAPSULE PO ×2 (09:14→21:00)
[2023-06-25] MEDS: Folic Acid 1 MG TABLET PO (09:14)
[2023-06-25] MEDS: hydrALAZINE HCl 25 MG TABLET PO ×3 (09:14→16:50)
[2023-06-25] MEDS: Omeprazole 40 MG CAPSULE.DR PO (09:14)
[2023-06-25] MEDS: Furosemide 40 MG TABLET PO (09:14)
--- NOTE | 2023-06-25 09:14 | MHC.EDTECH ---
Pt refusing to change into hospital gown. MAIN Malik aware.
[2023-06-25] MEDS: dilTIAZem HCL CD 180 MG CAP.ER.24H 360 MG PO (09:15)
[2023-06-25] MEDS: methylPREDNISolone Sod Succ 40 MG/ML VIAL IVPUSH ×2 (09:15→20:57)
[2023-06-25] MEDS: methADONE HCl 20 MG/2 ML ORAL.CONC 50 MG PO (09:19)
[2023-06-25] MEDS: 0.9 % Sodium Chloride Flush 3 ML SYRINGE IVFLUSH ×3 (09:21→21:01)
[2023-06-25] MEDS: Insulin Lispro 100 UNIT/ML 3 ML VIAL SUBCUT ×4 (09:25→21:00)
--- NOTE | 2023-06-25 09:43 | PC.NURSE ---
PT IS A/O X 4 NO SOB/MARLIN NOTED SPEAKS IN FULL SENTENCES. PT DENIES ANY SOB/MARLIN AT THIS TIME. PT IS 94% ON 2L/M VIA N/C. LUNGS - DIMINISHED ALL LOBES. IV#22 TO R UPPER ARM (PATENT). PT AWARE OF PLAN OF CARE WILL CONTINUE TO MONITOR.
[2023-06-25] MEDS: lamoTRIgine 25 MG TABLET 150 MG PO ×2 (11:08→21:00)
[2023-06-25] MEDS: Roflumilast 500 MCG TABLET PO (11:08)
[2023-06-25 11:36] LABS: Glucose, Whole Blood 162 mg/dL (60-115)
--- NOTE | 2023-06-25 12:10 | P.PNIM_ITS ---
Subjective Subjective Date of Service: 06/25/23 Review of Systems Follow-up acute respiratory failure Feeling better but still mildly short of breath Physical Exam 2 Vital Signs: Vital Signs: Last Vital Signs Temp 97.9 F 06/25/23 10:40 Pulse 106 H 06/25/23 11:22 Resp 18 06/25/23 11:22 BP 183/90 H 06/25/23 10:40 Pulse Ox 98 06/25/23 10:40 O2 Del Method Nasal Cannula 06/25/23 10:40 O2 Flow Rate 2 06/25/23 10:40 Oxygen Flow Rate 2 06/23/23 23:19 BMI result Body Mass Index 40.1 Appearing in no acute distress lung sounds diminished heart regular rate rhythm, clear S1, S2 positive bowel sounds, abdomen is soft, nontender neuro patient is alert x3, no focal deficits Objective Data Active Medications Acetaminophen (Acetaminophen 325 Mg Tablet) 650 mg PO Q6H PRN PRN Reason: Pain, Mild (Pain Scale 1-3) Albuterol Sulfate (Albuterol Sulfate 90 Mcg 8 Gm Inhaler) 2 puff INHALE Q4H PRN PRN Reason: Shortness Of Breath Or Wheezing Albuterol/Ipratropium (Albuterol/Iprat 2.5/0.5mg 3 Ml Ampul.Neb) 3 ml INHALE RQ4H WHILE AWAKE [facility] Last Admin: 06/25/23 11:19 Dose: 3 ml Documented By: WILLIAM Albuterol/Ipratropium (Albuterol/Iprat 2.5/0.5mg 3 Ml Ampul.Neb) 3 ml INHALE Q4H PRN PRN Reason: Wheezing Last Admin: 06/24/23 04:41 Dose: 3 ml Documented By: BETH Azathioprine (Azathioprine 50 Mg Tablet) 100 mg PO DAILY [facility] Last Admin: 06/25/23 11:53 Dose: Not Given Documented By: HALEIGH Non-Admin Reason: Patient Refused Budesonide (Budesonide 0.5 Mg/2 Ml Ampul.Neb) 0.5 mg INHALE BID [facility] Last Admin: 06/25/23 07:20 Dose: 0.5 mg Documented By: FANG Calcitonin Rincon (Calcitonin,Rincon,Synth Nasal 3.7 Ml Bottle) 1 spray NOSTRIL-B DAILY [facility] Last Admin: 06/25/23 11:53 Dose: Not Given Documented By: HALEIGH Non-Admin Reason: Med Not Available Clonazepam (Clonazepam 1 Mg Tablet) 1 mg PO BID PRN PRN Reason: Anxiety Last Admin: 06/24/23 16:58 Dose: 1 mg Documented By: SKYLAR Diltiazem HCl (Diltiazem Hcl Cd 180 Mg Cap.Er.24h) 360 mg PO DAILY [facility]; Protocol Last Admin: 06/25/23 09:15 Dose: 360 mg Documented By: RIP Docusate Sodium (Docusate Sodium 100 Mg Capsule) 100 mg PO BID PRN PRN Reason: constipation Enoxaparin Sodium (Enoxaparin Sodium 40 Mg/0.4 Ml Syringe) 40 mg SUBCUT Q24H [facility] Last Admin: 06/25/23 04:19 Dose: 40 mg Documented By: LIS Folic Acid (Folic Acid 1 Mg Tablet) 1 mg PO DAILY [facility] Last Admin: 06/25/23 09:14 Dose: 1 mg Documented By: RIP Furosemide (Furosemide 40 Mg Tablet) 40 mg PO DAILY [facility]; Protocol Last Admin: 06/25/23 09:14 Dose: 40 mg Documented By: RIP Gabapentin (Gabapentin 300 Mg Capsule) 300 mg PO BID [facility] Last Admin: 06/25/23 09:14 Dose: 300 mg Documented By: RIP Glucose (Glucose Gel 15 Gm Gel..Gram.) 15 gm PO Q15M PRN; Protocol PRN Reason: per Hypoglycemia Standing Ord. Hydralazine HCl (Hydralazine Hcl 25 Mg Tablet) 25 mg PO TIDWM [facility]; Protocol Last Admin: 06/25/23 11:08 Dose: 25 mg Documented By: HALEIGH Dextrose (D10) 250 mls @ 750 mls/hr IV Q15M PRN; Protocol PRN Reason: per Hypoglycemia Standing Ord. Insulin Glargine (Insulin Glargine,Hum.Rec.Anlog 100 Unit/Ml 10 Ml Vial) 45 unit SUBCUT BEDTIME [facility] Last Admin: 06/24/23 21:33 Dose: 45 unit Documented By: LIS Insulin Human Lispro (Insulin Lispro 100 Unit/Ml 3 Ml Vial) 0 unit SUBCUT QIDACHS [facility]; Protocol Last Admin: 06/25/23 11:57 Dose: 2 unit Documented By: HALEIGH Lamotrigine (Lamotrigine 25 Mg Tablet) 150 mg PO BID [facility] Last Admin: 06/25/23 11:08 Dose: 150 mg Documented By: HALEIGH Loratadine (Loratadine 10 Mg Tablet) 10 mg PO DAILY [facility] Last Admin: 06/25/23 09:14 Dose: 10 mg Documented By: RIP Melatonin (Melatonin 3 Mg Tablet) 6 mg PO BEDTIME PRN PRN Reason: Insomnia Methadone HCl (Methadone Hcl 20 Mg/2 Ml Oral.Conc) 50 mg PO DAILY [facility] Last Admin: 06/25/23 09:19 Dose: 50 mg Documented By: RIP Methylprednisolone Sodium Succinate (Methylprednisolone Sod Succ 40 Mg/Ml Vial) 40 mg IVPUSH Q12H [facility] Last Admin: 06/25/23 09:15 Dose: 40 mg Documented By: RIP Montelukast Sodium (Montelukast Sodium 10 Mg Tablet) 10 mg PO BEDTIME [facility] Last Admin: 06/24/23 21:33 Dose: 10 mg Documented By: LIS Non-Formulary Medication (Arformoterol [Brovana]) 2 ml INHALE Q12H [facility] Omeprazole (Omeprazole 40 Mg Capsule.Dr) 40 mg PO DAILY@0630 [facility] Last Admin: 06/25/23 09:14 Dose: 40 mg Documented By: RIP Ondansetron HCl (Ondansetron Hcl 4 Mg/2 Ml Vial) 4 mg IVPUSH Q8H PRN PRN Reason: Nausea and Vomiting Polyethylene Glycol (Polyethylene Glycol 3350 17 Gm Powd.Pack) 17 gm PO DAILY [facility] Last Admin: 06/25/23 11:19 Dose: Not Given Documented By: HALEIGH Non-Admin Reason: Patient Refused Roflumilast (Roflumilast 500 Mcg Tablet) 500 mcg PO DAILY [facility] Last Admin: 06/25/23 11:08 Dose: 500 mcg Documented By: HALEIGH Sodium Chloride (0.9 % Sodium Chloride Flush 3 Ml Syringe) 3 ml IVFLUSH QSHIFT [facility] Last Admin: 06/25/23 09:21 Dose: 3 ml Documented By: RIP Zolpidem Tartrate (Zolpidem Tartrate 5 Mg Tablet) 5 mg PO BEDTIME PRN PRN Reason: Sleep Labs 04/09/24 05:11 06/24/23 05:11 Labs: Laboratory Results - last 24 hr 06/24/23 06/24/23 06/25/23 17:22 21:08 03:50 POC Glucose 277 H 287 H 510 H* 06/25/23 06/25/23 07:31 11:20 POC Glucose 180 H 162 H Assessment and Plan (1) Acute exacerbation of chronic obstructive pulmonary disease: Status: Acute Plan This is a 53-year-old female with pertinent history of chronic hypoxemic hypercapnic respiratory failure due to asthma-COPD overlap syndrome/OHS on 2 L baseline supplemental oxygen and nocturnal BiPAP, insulin-dependent diabetes mellitus, essential hypertension, mixed hyperlipidemia, opioid dependence on methadone, mood disorder who presents to the emergency department for evaluation of dyspnea. Acute respiratory distress on chronic hypoxemic hypercarbic respiratory failure due to exacerbation of asthma-COPD overlap syndrome supplemental oxygen, uses 2 L at baseline. systemic steroids. Scheduled and p.r.n. DuoNebs. Continue home inhalers. Continue nocturnal BiPAP. Tachycardia and tachypnea due to above No sepsis Reactive leukocytosis due to steroid use Insulin-dependent diabetes mellitus with hyperglycemia ss, lantus, ada diet Essential hypertension Continue home antihypertensives Mixed hyperlipidemia On statin Opioid dependence on methadone Mood disorder Continue home mood stabilizers Morbid obesity Weight loss and diet modification Congestive heart failure with preserved ejection fraction: No exacerbation during admission. Continue home Lasix Gastroesophageal reflux disease On PPI DVT prophylaxis: Lovenox Attending Dr. Jones Full code continue hospital stay for IV steroids, scheduled frequent bronchodilator therapy, close monitoring of respiratory status in a patient with frequent hospitalization due to exacerbation of obstructive lung disease and high risk for decompensation (as above), which is not possible in a lesser acute setting. Quality Stroke Does the patient have a stroke diagnosis?: No VTE Prior VTE?: No VTE Risk Level:: Medical - moderate - high VTE Device Contraindication: Treatment Not Indicated VTE Drug Contraindication: N/A - Med Ordered
--- NOTE | 2023-06-25 14:09 | P.DS_ITS ---
DS: Providers Provider Date of admission: 06/24/23 03:19 Primary care physician: Kelli Benavides MD DS: Diagnosis Discharge Diagnosis (1) Acute exacerbation of chronic obstructive pulmonary disease: Status: Acute DS: Summary Hospital Course Hospital Course: History and physical as per admitting provider. This is a 53-year-old female with pertinent history of chronic hypoxemic hypercapnic respiratory failure due to asthma-COPD overlap syndrome/OHS on 2 L baseline supplemental oxygen and noct urnal BiPAP, insulin-dependent diabetes mellitus, essential hypertension, mixed hyperlipidemia, opioid dependence on methadone, mood disorder, congestive heart failure with preserved ejection fraction who presents to the emergency department for evaluation of dyspnea. Patient states her symptoms started one day prior to presentation. She started having dyspnea which is worse with exertion. It was associated with wheezing. No relief with home O2 or home inhalers. Her symptoms have progressed over the last 24 hours. Patient denies chest pain, palpitations or cough. No fever, chills, abdominal pain, changes in urinary or bowel habits. No sick contacts. No orthopnea or PND In the emergency department, patient with wheezing despite multiple DuoNeb treatments. 53-year-old woman well known to the hospitalist service for chronic respiratory failure. She was admitted for acute on chronic hypoxemic hypercarbic respiratory failure secondary to exacerbation of asthma and COPD overlap. She was treated with systemic steroids, scheduled DuoNebs, supplemental oxygen. BiPAP as needed usually for naps and at bedtime. She was noted to have tachycardia tachypnea which is chronic for as well with no sepsis. Reactive leukocytosis was secondary to steroid use. Plan is to discharge patient home to continue her usual treatment. Diabetes mellitus type 2 with hyperglycemia. Continue home medications Hypertension continue diltiazem, hydralazine Hyperlipidemia continue statin History of opiate dependence continue methadone Mental health continue home mood stabilizers Morbid obesity. BMI 40.1 Discussed importance of weight management as this may be contributing to worsening of other comorbidities Heart failure with preserved ejection fraction. No exacerbation during admission. Continue Lasix GERD. Continue PPI Physical Exam Vital Signs: Vital Signs: Last Vital Signs Temp 97.9 F 06/25/23 10:40 Pulse 106 H 06/25/23 11:22 Resp 18 06/25/23 11:22 BP 183/90 H 06/25/23 10:40 Pulse Ox 98 06/25/23 10:40 O2 Del Method Nasal Cannula 06/25/23 10:40 O2 Flow Rate 2 06/25/23 10:40 Oxygen Flow Rate 2 06/23/23 23:19 BMI result Body Mass Index 40.1 DS: Data Data Completed and Pending Completed studies during hospitalization [Text1]: Procedures Assistance with Respiratory Ventilation, 24-96 Consecutive Hours, Continuous Positive Airway Pressure (02/21/23) Assistance with Respiratory Ventilation, Less than 24 Consecutive Hours, Continuous Positive Airway Pressure (06/05/23) Insertion of Endotracheal Airway into Trachea, Via Natural or Artificial Opening (12/21/22) Insertion of Infusion Device into Right Atrium, Percutaneous Approach (12/21/21) Insertion of Infusion Device into Right Brachial Vein, Percutaneous Approach (07/28/22) Insertion of Infusion Device into Superior Vena Cava, Percutaneous Approach (12/21/22) Insertion of Infusion Device into Upper Vein, Percutaneous Approach (02/21/23) Introduction of Vasopressor into Peripheral Vein, Percutaneous Approach (12/21/21) Respiratory Ventilation, 24-96 Consecutive Hours (12/21/22) Ultrasonography of Superior Vena Cava, Guidance (12/21/22) Labs on day of discharge: Laboratory Results - last 24 hr 06/24/23 06/24/23 06/25/23 17:22 21:08 03:50 POC Glucose 277 H 287 H 510 H* 06/25/23 06/25/23 07:31 11:20 POC Glucose 180 H 162 H Discharge Plan Discharge Patient Disposition: Home, Self-Care Discharge Diagnosis: Acute on chronic hypoxemic hypercarbic respiratory failure Asthma/COPD overlap syndrome exacerbation Referrals: Kelli Benavides MD [Primary Care Provider] - 1 Week Discharge Medications: Continued gabapentin 300 mg capsule 300 mg PO BID Qty: 60 11RF albuterol sulfate [ProAir HFA] 90 mcg/actuation HFA aerosol inhaler 2 puff inhalation Q4H PRN (Reason: Shortness Of Breath Or Wheezing) Qty: 1 0RF omeprazole 40 mg capsule,delayed release(DR/EC) 40 mg PO DAILY@0630 30 Days Qty: 30 6RF furosemide 20 mg tablet 40 mg PO DAILY 90 Days Qty: 180 0RF ipratropium-albuterol 0.5 mg-3 mg(2.5 mg base)/3 mL solution for nebulization 3 ml PO Q4H PRN (Reason: for wheezing) Qty: 540 6RF diltiazem HCl [Tiadylt ER] 360 mg capsule,extended release 24 hr 360 mg PO DAILY rosuvastatin 5 mg tablet 5 mg PO BEDTIME roflumilast [Daliresp] 500 mcg tablet 500 mcg PO DAILY metformin 500 mg tablet extended release 24 hr 500 mg PO DAILY hydralazine 25 mg tablet 25 mg PO TIDWM insulin lispro 100 unit/mL solution 4 unit subcut TIDAC PRN (Reason: Hyperglycemia) Rx Instructions: per sliding scale methadone 10 mg/mL Concentrate 50 mg PO DAILY Patient Comments: [facility] ADMIN[facility] lamotrigine 150 mg tablet 150 mg PO BID calcitonin (salmon) 200 unit/actuation spray,non-aerosol 1 spray intranasal DAILY Rx Instructions: one nostril every day, alternate sides. insulin glargine [Lantus U-100 Insulin] 100 unit/mL solution 45 unit subcut BEDTIME docusate sodium 100 mg capsule 100 mg PO BID PRN (Reason: constipation) clonazepam 1 mg tablet 1 mg PO BID PRN (Reason: Anxiety) polyethylene glycol 3350 [Miralax] 17 gram/dose powder 17 g PO DAILY ammonium lactate 12 % lotion 1 appl topical DAILY zolpidem 5 mg tablet 5 mg PO BEDTIME PRN (Reason: Sleep) Rx Instructions: use with 100% BIPAP compliance only diclofenac sodium 1 % gel 4 g TOPICAL QID PRN (Reason: Pain) cholecalciferol (vitamin D3) 1,250 mcg (50,000 unit) capsule 1,250 mcg PO 2XW lidocaine 5 % adhesive patch,medicated 1 patch topical QAM PRN (Reason: Pain) azathioprine 50 mg tablet 100 mg PO DAILY montelukast 10 mg tablet 10 mg PO BEDTIME loratadine [Claritin] 10 mg tablet 10 mg PO DAILY (DME) compress.stocking,knee,reg,med Misc See Rx Instructions .Route Qty: 2 0RF Rx Instructions: 15-20 cm arformoterol [Brovana] 15 mcg/2 mL solution for nebulization 2 ml inhalation Q12H 30 Days Qty: 120 11RF budesonide 0.5 mg/2 mL suspension for nebulization 0.5 mg inhalation BID Qty: 120 11RF tiotropium bromide [Spiriva with HandiHaler] 18 mcg capsule, w/inhalation device 1 cap inhalation DAILY Qty: 30 11RF (DME) nebulizers Misc See Rx Instructions .ROUTE Rx Instructions: As directed folic acid 1 mg tablet 1 mg PO DAILY 30 Days Qty: 30 6RF Diet: Advance to usual diet Activity on Discharge: As tolerated Stand Alone Forms: Patient Portal Discharge page Print Language: Afghan Care Plan Goals: Continue using CPAP/BiPAP at home Health Concerns: Acute on chronic hypoxemic hypercarbic respiratory failure Asthma/COPD overlap syndrome exacerbation Plan of Treatment: Follow-up with primary care provider as needed Take all medications as prescribed Assessment: See discharge summary
--- NOTE | 2023-06-25 15:06 | P.CDIM_ITS ---
PROVIDER RESPONSE TEXT: To clarify, the appropriate diagnosis supported by the clinical indicators: Hypomagnesemia QUERY TEXT: PHYSICIAN'S DOCUMENTATION REQUEST Date of Query: 06/24/2023 10:17 AM EDT Patient Name: Anju Tanner I Admit Date: 06/24/2023 Dear China Brito, A review of the medical record indicates additional documentation may be needed. Please review below and update the documentation accordingly. Clinical Indicators: LAB FINDINGS: magnesium 1.5 L IV Magnesium sulfate Based on the above, is there a diagnosis that correlates with these lab findings: Hypomagnesemia Labs indicate a diagnosis of (please specify) Other (explain) Clinically unable to determine (explain) Thank you, Daina Silva, CCS, CDIS Use of terms such as suspected, likely, concern for, or probable (associated with a specific diagnosi s that is being evaluated, monitored, or treated as if it exists) are acceptable and can be coded in the inpatient se tting, when documented at the time of discharge. Please use your independent medical judgment in providing your response. THIS QUERY IS PART OF THE PERMANENT MEDICAL RECORD
--- NOTE | 2023-06-25 15:09 | P.CDIM_ITS ---
PROVIDER RESPONSE TEXT: To clarify, the appropriate diagnosis supported by the clinical indicators: Morbid obesity QUERY TEXT: PHYSICIAN'S DOCUMENTATION REQUEST Date of Query: 06/25/2023 09:59 AM EDT Patient Name: Anju Tanner I Admit Date: 06/24/2023 Dear China Brito, A review of the medical record indicates additional documentation may be needed. Please review below and update the documentation accordingly. Clinical Indicators: BMI: 40.1 5ft 1in 96.3kg If possible, please provide an associated diagnosis related to the abnormal BMI, such as: Morbid obesity Severe or Morbid Obesity With alveolar hypoventilation Severe or Morbid Obesity Without alveolar hypoventilation Obesity Other (explain) Clinically unable to determine (explain) Thank you, Daina Silva, CCS, CDIS Use of terms such as suspected, likely, concern for, or probable (associated with a specific diagnosi s that is being evaluated, monitored, or treated as if it exists) are acceptable and can be coded in the inpatient se tting, when documented at the time of discharge. Please use your independent medical judgment in providing your response. THIS QUERY IS PART OF THE PERMANENT MEDICAL RECORD
[2023-06-25 16:08] LABS: Glucose, Whole Blood 364 mg/dL (60-115)
[2023-06-25 20:10] LABS: Glucose, Whole Blood 304 mg/dL (60-115)
[2023-06-25] MEDS: Insulin Glargine,Hum.rec.anlog 100 UNIT/ML 10 ML VIAL 45 UNIT SUBCUT (20:57)
[2023-06-25] MEDS: Montelukast Sodium 10 MG TABLET PO (21:00)
[2023-06-25] MEDS: clonazePAM 1 MG TABLET PO (21:01)
[2023-06-26 03:45] VITALS: PULSE 95; RESP 18; O2SAT 93
[2023-06-26 03:54] VITALS: BP 103/62; PULSE 69; RESP 18; TEMP 36.3; O2SAT 97
[2023-06-26] MEDS: Enoxaparin Sodium 40 MG/0.4 ML SYRINGE SUBCUT (04:37)
[2023-06-26] MEDS: Omeprazole 40 MG CAPSULE.DR PO (04:40)
--- NOTE | 2023-06-26 06:13 | MHC.PIE ---
p; notified by respiratory pt needs to be on tele due to respiratory rate 14 i; dr granger notified e; no new orders at this time. will cont to monitor
[2023-06-26 07:10] VITALS: BP 170/83; PULSE 90; RESP 18; TEMP 36.1; O2SAT 96
[2023-06-26 07:34] LABS: Glucose, Whole Blood 424 mg/dL (60-115)
[2023-06-26] MEDS: Calcitonin,Salmon,Synth Nasal 3.7 ML BOTTLE 1 SPRAY NOSTRIL-B (08:00)
[2023-06-26] MEDS: lamoTRIgine 25 MG TABLET 150 MG PO (08:00)
[2023-06-26] MEDS: azaTHIOprine 50 MG TABLET 100 MG PO (08:00)
[2023-06-26] MEDS: Roflumilast 500 MCG TABLET PO (08:01)
[2023-06-26] MEDS: hydrALAZINE HCl 25 MG TABLET PO ×2 (08:01→11:52)
[2023-06-26] MEDS: methylPREDNISolone Sod Succ 40 MG/ML VIAL IVPUSH (08:01)
[2023-06-26] MEDS: dilTIAZem HCL CD 180 MG CAP.ER.24H 360 MG PO (08:01)
[2023-06-26] MEDS: Loratadine 10 MG TABLET PO (08:01)
[2023-06-26] MEDS: Insulin Lispro 100 UNIT/ML 3 ML VIAL SUBCUT ×3 (08:01→11:52)
[2023-06-26] MEDS: 0.9 % Sodium Chloride Flush 3 ML SYRINGE IVFLUSH (08:02)
[2023-06-26] MEDS: Gabapentin 300 MG CAPSULE PO (08:02)
[2023-06-26] MEDS: Folic Acid 1 MG TABLET PO (08:02)
[2023-06-26] MEDS: Furosemide 40 MG TABLET PO (08:02)
[2023-06-26] MEDS: methADONE HCl 20 MG/2 ML ORAL.CONC 50 MG PO (08:02)
[2023-06-26] MEDS: Budesonide 0.5 MG/2 ML AMPUL.NEB INHALE (08:10)
[2023-06-26] MEDS: Albuterol/Iprat 2.5/0.5MG 3 ML AMPUL.NEB INHALE ×2 (08:10→11:07)
[2023-06-26 08:11] VITALS: PULSE 90; RESP 18; O2SAT 95
--- NOTE | 2023-06-26 11:03 | MHC.CM.PN ---
Per MD rounds patient is medically cleared for dc home to resume [employer] services. Patient reports her will provide transportation home and she will notify [facility] of dc.
[2023-06-26 11:09] VITALS: PULSE 119; RESP 18; O2SAT 94
[2023-06-26 11:31] LABS: Glucose, Whole Blood 164 mg/dL (60-115)
[2023-06-26 11:53] VITALS: BP 160/90; PULSE 103
--- NOTE | 2023-06-26 12:07 | PM.DS ---
DS: Providers Provider Date of Service: 06/26/23 Date of admission: 06/24/23 03:19 Date of discharge: 06/26/23 Primary care physician: Kelil Benavides MD Attending physician on discharge: Anant Jones Discharging clinician: Ginger Ma DS: Diagnosis Discharge Diagnosis (1) Acute exacerbation of chronic obstructive pulmonary disease: Status: Acute DS: Summary Hospital Course Hospital Course: History and physical as per admitting provider. This is a 53-year-old female with pertinent history of chronic hypoxemic hypercapnic respiratory failure due to asthma-COPD overlap syndrome/OHS on 2 L baseline supplemental oxygen and nocturnal BiPAP, insulin-dependent diabetes mellitus, essential hypertension, mixed hyperlipidemia, opioid dependence on methadone, mood disorder, congestive heart failure with preserved ejection fraction who presents to the emergency department for evaluation of dyspnea. Patient states her symptoms started one day prior to presentation. She started having dyspnea which is worse with exertion. It was associated with wheezing. No relief with home O2 or home inhalers. Her symptoms have progressed over the last 24 hours. Patient denies chest pain, palpitations or cough. No fever, chills, abdominal pain, changes in urinary or bowel habits. No sick contacts. No orthopnea or PND In the emergency department, patient with wheezing despite multiple DuoNeb treatments. 53-year-old woman well known to the hospitalist service for chronic respiratory failure. She was admitted for acute on chronic hypoxemic hypercarbic respiratory failure secondary to exacerbation of asthma and COPD overlap. She was treated with systemic steroids, scheduled DuoNebs, supplemental oxygen. BiPAP as needed usually for naps and at bedtime. She was noted to have tachycardia tachypnea which is chronic for as well with no sepsis. CXR was negative for pneumonia. Reactive leukocytosis was secondary to steroid use. She has remained on baseline oxygen and respiratory status is improving. At this time she is near her baseline and stable for return home with plan to complete 5 day course of steroids. She will resume [employer] services. no changes made to baseline medications. recommended to follow up with pulmonology as outpatient Time Attestation Discharge Coordination Time (in mins): 36 Quality: Safe Use of Opioids Does Pt have an Active Cancer Diagnosis on the Problem List?: No Quality: Stroke Does the patient have a stroke diagnosis?: No Physical Exam Vital Signs: Vital Signs: Last Vital Signs Temp 96.9 F 06/26/23 07:10 Pulse 103 H 06/26/23 11:53 Resp 18 06/26/23 11:09 BP 160/90 H 06/26/23 11:53 Pulse Ox 96 06/26/23 07:10 O2 Del Method Nasal Cannula 06/26/23 07:10 O2 Flow Rate 2 06/26/23 07:10 Oxygen Flow Rate 2 06/23/23 23:19 BMI result Body Mass Index 40.1 Const: General: cooperative, comfortable, no acute distress, alert and awake Nutritional Appearance: obese Orientation/consciousness: patient oriented x3 Resp: Other: diminished, no wheezing Cardio: Rate: regular rate GI: Inspection: No distended Palpation (GI): Soft to palpation and nontender Neuro: General: patient oriented x3, moves all extremities and CN's II-XI intact bilaterally Extrem: General: Yes no pedal edema DS: Data Data Completed and Pending Completed studies during hospitalization [Text1]: Procedures Assistance with Respiratory Ventilation, 24-96 Consecutive Hours, Continuous Positive Airway Pressure (02/21/23) Assistance with Respiratory Ventilation, Less than 24 Consecutive Hours, Continuous Positive Airway Pressure (06/05/23) Insertion of Endotracheal Airway into Trachea, Via Natural or Artificial Opening (12/21/22) Insertion of Infusion Device into Right Atrium, Percutaneous Approach (12/21/21) Insertion of Infusion Device into Right Brachial Vein, Percutaneous Approach (07/28/22) Insertion of Infusion Device into Superior Vena Cava, Percutaneous Approach (12/21/22) Insertion of Infusion Device into Upper Vein, Percutaneous Approach (02/21/23) Introduction of Vasopressor into Peripheral Vein, Percutaneous Approach (12/21/21) Respiratory Ventilation, 24-96 Consecutive Hours (12/21/22) Ultrasonography of Superior Vena Cava, Guidance (12/21/22) Labs on day of discharge: Laboratory Results - last 24 hr 06/25/23 06/25/23 06/26/23 16:05 20:05 07:17 POC Glucose 364 H* 304 H 424 H* 06/26/23 11:27 POC Glucose 164 H Discharge Plan Discharge Anticipated Discharge Date/Time: 06/26/23 12:04 Patient Disposition: Home, Self-Care Discharge Diagnosis: Acute on chronic hypoxemic hypercarbic respiratory failure Asthma/COPD overlap syndrome exacerbation Referrals: Kelli Benavides MD [Primary Care Provider] - 1 Week Discharge Medications: New prednisone 20 mg tablet 40 mg PO DAILY 5 Days Qty: 10 0RF Continued gabapentin 300 mg capsule 300 mg PO BID Qty: 60 11RF albuterol sulfate [ProAir HFA] 90 mcg/actuation HFA aerosol inhaler 2 puff inhalation Q4H PRN (Reason: Shortness Of Breath Or Wheezing) Qty: 1 0RF omeprazole 40 mg capsule,delayed release(DR/EC) 40 mg PO DAILY@0630 30 Days Qty: 30 6RF furosemide 20 mg tablet 40 mg PO DAILY 90 Days Qty: 180 0RF ipratropium-albuterol 0.5 mg-3 mg(2.5 mg base)/3 mL solution for nebulization 3 ml PO Q4H PRN (Reason: for wheezing) Qty: 540 6RF diltiazem HCl [Tiadylt ER] 360 mg capsule,extended release 24 hr 360 mg PO DAILY rosuvastatin 5 mg tablet 5 mg PO BEDTIME roflumilast [Daliresp] 500 mcg tablet 500 mcg PO DAILY metformin 500 mg tablet extended release 24 hr 500 mg PO DAILY hydralazine 25 mg tablet 25 mg PO TIDWM insulin lispro 100 unit/mL solution 4 unit subcut TIDAC PRN (Reason: Hyperglycemia) Rx Instructions: per sliding scale methadone 10 mg/mL Concentrate 50 mg PO DAILY Patient Comments: [facility] PICKS [facility] AND ADMINISTERS lamotrigine 150 mg tablet 150 mg PO BID calcitonin (salmon) 200 unit/actuation spray,non-aerosol 1 spray intranasal DAILY Rx Instructions: one nostril every day, alternate sides. insulin glargine [Lantus U-100 Insulin] 100 unit/mL solution 45 unit subcut BEDTIME docusate sodium 100 mg capsule 100 mg PO BID PRN (Reason: constipation) clonazepam 1 mg tablet 1 mg PO BID PRN (Reason: Anxiety) polyethylene glycol 3350 [Miralax] 17 gram/dose powder 17 g PO DAILY ammonium lactate 12 % lotion 1 appl topical DAILY zolpidem 5 mg tablet 5 mg PO BEDTIME PRN (Reason: Sleep) Rx Instructions: use with 100% BIPAP compliance only diclofenac sodium 1 % gel 4 g TOPICAL QID PRN (Reason: Pain) cholecalciferol (vitamin D3) 1,250 mcg (50,000 unit) capsule 1,250 mcg PO 2XW lidocaine 5 % adhesive patch,medicated 1 patch topical QAM PRN (Reason: Pain) azathioprine 50 mg tablet 100 mg PO DAILY montelukast 10 mg tablet 10 mg PO BEDTIME loratadine [Claritin] 10 mg tablet 10 mg PO DAILY (DME) compress.stocking,knee,reg,med Misc See Rx Instructions .Route Qty: 2 0RF Rx Instructions: 15-20 cm arformoterol [Brovana] 15 mcg/2 mL solution for nebulization 2 ml inhalation Q12H 30 Days Qty: 120 11RF budesonide 0.5 mg/2 mL suspension for nebulization 0.5 mg inhalation BID Qty: 120 11RF tiotropium bromide [Spiriva with HandiHaler] 18 mcg capsule, w/inhalation device 1 cap inhalation DAILY Qty: 30 11RF (DME) nebulizers Misc See Rx Instructions .ROUTE Rx Instructions: As directed folic acid 1 mg tablet 1 mg PO DAILY 30 Days Qty: 30 6RF Discharge Orders: Discharge Order (Routine); Ordered 06/26/23 Ordered By: Ginger Ma Diet: Advance to usual diet Activity on Discharge: As tolerated Stand Alone Forms: Patient Portal Discharge page Print Language: Slovenian Care Plan Goals: Continue using BiPAP at home and supplemental oxygen Health Concerns: Acute on chronic hypoxemic hypercarbic respiratory failure Asthma/COPD overlap syndrome exacerbation Plan of Treatment: Complete 5 days of prednisone Follow-up with primary care provider and interpreter translator Take all medications as prescribed Assessment: See discharge summary
== END 2023-06-26 13:25 | disposition home or self-care (01) | DRG 140 ==
LOC: HO.ED 06-24 02:52 → HO.EDOVER 06-24 03:22 → HO.S3 06-25 08:59
PROVIDERS: Nurse Practitioner Acute Care; Admitting Provider Student in an Organized Health Care Education/Training Program; Emergency Provider Emergency Medicine; PCP Family Medicine; Visit Provider Physician Assistant Medical
DX: J44.1 Chronic obstructive pulmonary disease with (acute) exacerbation (principal); J96.21 Acute and chronic respiratory failure with hypoxia; I50.32 Chronic diastolic (congestive) heart failure; E66.2 Morbid (severe) obesity with alveolar hypoventilation; J45.901 Unspecified asthma with (acute) exacerbation; I11.0 Hypertensive heart disease with heart failure; K21.9 Gastro-esophageal reflux disease without esophagitis; E78.2 Mixed hyperlipidemia; Z99.81 Dependence on supplemental oxygen; E11.65 Type 2 diabetes mellitus with hyperglycemia; F11.20 Opioid dependence, uncomplicated; E83.42 Hypomagnesemia; J96.22 Acute and chronic respiratory failure with hypercapnia; Z20.822 Contact with and (suspected) exposure to COVID-19; Z68.41 Body mass index [BMI] 40.0-44.9, adult; Z87.891 Personal history of nicotine dependence; Z79.4 Long term (current) use of insulin; Z79.52 Long term (current) use of systemic steroids; Z79.84 Long term (current) use of oral hypoglycemic drugs; Z79.899 Other long term (current) drug therapy
CPT/HCPCS: 0241U; 36415; 71045; 80048; 80076; 82803; 82947; 83735; 83880; 84484; 85025; 86140; 93005; 94640; 94660; 99221; 99285; J1650; J2919; J2920; J2930; J3475

== ENCOUNTER → 2023-06-24 00:05 | Outpatient (BNV) | payer MEDICAID, SELFPAY | PROVIDERS: Admitting Provider Student in an Organized Health Care Education/Training Program; Emergency Provider Emergency Medicine; PCP Family Medicine; Visit Provider Internal Medicine Cardiovascular Disease | DX: R00.0 Tachycardia, unspecified (principal); I45.10 Unspecified right bundle-branch block | CPT/HCPCS: 93010 ==

== ENCOUNTER → 2023-06-24 03:19 | Outpatient (BNV) | payer MEDICAID, SELFPAY | PROVIDERS: Admitting Provider Student in an Organized Health Care Education/Training Program; Emergency Provider Emergency Medicine; Visit Provider Student in an Organized Health Care Education/Training Program | DX: J44.1 Chronic obstructive pulmonary disease with (acute) exacerbation (principal) | CPT/HCPCS: 99222; 99232; 99239; 99499 ==

== ENCOUNTER 2023-07-09 08:21 | Inpatient (IN) | payer MEDICAID, SELFPAY ==
[2023-07-09] VITALS (11 sets, daily range): BP systolic 153–178; BP diastolic 70–88; PULSE 100–124; RESP 13–24; TEMP 36.6–36.7; O2SAT 92–98; BMI 43.0
--- NOTE | ~2023-07-09 | US_ITS ---
EXAMINATION: US VENOUS ULTRASOUND WITH DOPPLER LOWER EXTREMITY, RIGHT CLINICAL INFORMATION: Right lower extremity edema. COMPARISON: Right lower extremity venous ultrasound dated 06/05/2023. TECHNIQUE: Ultrasound of the deep veins is performed from the hip to the calf with compression sonography and color and pulse Doppler assessment. Spectral analysis with color-flow imaging is performed. FINDINGS: There is normal venous compression and respiratory variation and augmented flow. The visualized common femoral vein, superficial femoral vein, profunda femoral vein, popliteal vein, and the trifurcation region shows no evidence of deep venous thrombosis. The peroneal vein is poorly visualized. There is no significant popliteal fossa cyst. If the patient's symptoms persist, followup ultrasound in 5 days 7 days might be of value to exclude proximal propagation from a non-visualized calf vein. US/US venous duplex LE RT IMPRESSION: No DVT demonstrated in the right lower extremity.
--- NOTE | ~2023-07-09 | XR_ITS ---
EXAMINATION: XR CHEST CLINICAL INFORMATION: Shortness of breath. COMPARISON: 06/24/2023 and 06/05/2023 TECHNIQUE: 2 views of the chest were obtained. FINDINGS: The lungs are well expanded. There is stable diffuse prominence of the interstitial markings. There is a 1.7 cm nodular density projecting over the left costophrenic angle. No pleural effusion. Cardiac silhouette is XR/XR chest 2V IMPRESSION: Potential 1.7 cm nodular density projecting over the left costophrenic angle. Chest CT is recommended.
[2023-07-09] MEDS: Albuterol Sulfate 5 MG, Albuterol/Iprat 2.5/0.5MG 3 ML 3 ML INHALE (08:43)
--- NOTE | 2023-07-09 08:44 | PC.NURSE ---
Pt presents to ED via EMS from home. Reports SOB X 1 hour this morning, used neb rx at home with no relief, is on 2L O2 NC at baseline for COPD. Pt also reports ABD distention and nausea, reports normal BM this morning, denies vomiting or diarrhea. Pt denies any fever or recent illnesses but does report kids at home are sick. EMS gave duo neb en route. Pt is alert and oriented, breathing slightly elevated, skin WNL. ABD noted to be significantly distended and hard. Pt is currently on neb rx with RT. Reports headache, 08/24.
--- NOTE | 2023-07-09 08:49 | ECG_ITS ---
Test Reason : DYSPNEA Blood Pressure : / mmHG Vent. Rate : 103 BPM Atrial Rate : 103 BPM P-R Int : 132 ms QRS Dur : 102 ms QT Int : 374 ms P-R-T Axes : 052 001 034 degrees QTc Int : 489 ms Sinus tachycardia Incomplete right bundle branch block Minimal voltage criteria for LVH, may be normal variant ( R in aVL ) Borderline ECG When compared with ECG of 24-JUN-2023 00:09, No significant change was found Referred By: Sarbina Aguirre Electronically Signed By:TRISTAN CASTREJON MD
--- NOTE | 2023-07-09 08:50 | ED_ITS ---
HPI - Asthma General Chief Complaint: Dyspnea Stated Complaint: SOB,90% RA,SUONEB NOW PER EMS Time Seen by Provider: 07/09/23 08:30 Source: patient and old records reviewed Mode of arrival: EMS Limitations: no limitations History of Present Illness HPI Narrative: 53 yo female well known to us PMH of end stage asthma and COPD on home O2 and Bipap use, chronic methadone use, obesity, DM, CHITO, HLD, chronic respiratory failure, notes she started to cough yesterday no fevers, no sputum production did her Bipap and inhalers and started to feel better. She notes she had some nausea, chills and noted her right leg which is chronically swollen now is red and hot to touch starting yesterday. MD complaint: asthma attack and wheezing Onset (ago): day(s) (2) Severity: mild Associated symptoms: dry cough Asthma History: childhood onset Treatments Prior to Arrival: inhaled bronchodilator Related Data Home Medications ?Medication ?Instructions ?Recorded ?Confirmed loratadine 10 mg tablet (Claritin) 10 mg PO DAILY 12/30/19 06/24/23 montelukast 10 mg tablet 10 mg PO BEDTIME 12/30/19 06/24/23 diltiazem HCl 360 mg capsule,24 360 mg PO DAILY 11/16/20 06/24/23 hr,extended release (Tiadylt ER) roflumilast 500 mcg tablet 500 mcg PO DAILY 11/16/20 06/24/23 (Daliresp) rosuvastatin 5 mg tablet 5 mg PO BEDTIME 11/16/20 06/24/23 metformin 500 mg tablet,extended 500 mg PO DAILY 05/18/21 06/24/23 release 24 hr methadone 10 mg/mL oral concentrate 50 mg PO DAILY 06/06/21 06/06/23 hydralazine 25 mg tablet 25 mg PO TIDWM 11/02/21 06/24/23 insulin lispro 100 unit/mL 4 unit subcut TIDAC PRN 11/02/21 06/24/23 subcutaneous solution Hyperglycemia clonazepam 1 mg tablet 1 mg PO BID PRN Anxiety 06/28/22 06/24/23 lamotrigine 150 mg tablet 150 mg PO BID 07/29/22 06/24/23 calcitonin (salmon) 200 1 spray intranasal DAILY 09/30/22 06/24/23 unit/actuation nasal spray insulin glargine 100 unit/mL 45 unit subcut BEDTIME 09/30/22 06/24/23 subcutaneous solution (Lantus U-100 Insulin) docusate sodium 100 mg capsule 100 mg PO BID PRN constipation 10/20/22 06/24/23 nebulizers 11/08/22 04/08/23 polyethylene glycol 3350 17 17 g PO DAILY constipation 12/21/22 06/24/23 gram/dose oral powder (Miralax) ammonium lactate 12 % lotion 1 appl topical DAILY Rash 02/02/23 06/24/23 diclofenac sodium 1 % topical gel 4 g topical QID PRN Pain 05/04/23 06/24/23 zolpidem 5 mg tablet 5 mg PO BEDTIME PRN Sleep 05/04/23 06/24/23 cholecalciferol (vitamin D3) 1,250 1,250 mcg PO 2XW 05/19/23 06/24/23 mcg (50,000 unit) capsule lidocaine 5 % topical patch 1 patch topical QAM PRN Pain 05/19/23 06/24/23 azathioprine 50 mg tablet 100 mg PO DAILY 06/24/23 06/24/23 Previous Rx's ?Medication ?Instructions ?Recorded folic acid 1 mg tablet 1 mg PO DAILY 30 days #30 tabs 12/19/22 gabapentin 300 mg capsule 300 mg PO BID #60 caps 01/14/23 albuterol sulfate 90 mcg/actuation 2 puff inhalation Q4H PRN 02/19/23 aerosol inhaler (ProAir HFA) Shortness Of Breath Or Wheezing #1 ea arformoterol 15 mcg/2 mL solution 2 ml inhalation Q12H 30 days #120 02/20/23 for nebulization (Brovana) mL budesonide 0.5 mg/2 mL suspension 0.5 mg (2 mL) inhalation BID #120 02/20/23 for nebulization mL compress.stocking,knee,reg,med #2 ea 02/20/23 tiotropium bromide 18 mcg capsule 1 cap inhalation DAILY #30 ea 02/20/23 with inhalation device (Spiriva with HandiHaler) omeprazole 40 mg capsule,delayed 40 mg PO DAILY@0630 30 days #30 03/31/23 release caps furosemide 20 mg tablet 40 mg (2 x 20 mg) PO DAILY 90 days 02/20/24 #180 tabs ipratropium 0.5 mg-albuterol 3 mg 3 ml PO Q4H PRN for wheezing #540 06/05/23 (2.5 mg base)/3 mL nebulization mL soln prednisone 20 mg tablet 40 mg (2 x 20 mg) PO DAILY 5 days 06/26/23 #10 tabs Allergies Allergy/AdvReac Type Severity Reaction Status Date / Time No Known Allergies Allergy Verified 07/09/23 08:43 [No Known Allergies*] Review of Systems 2 Review of Systems: Constitutional : No Fever, No Chills ENT/Mouth : No Hoarseness, No sore throat, No Rhinorrhea Eyes: No Redness, No Discharge, No Vision Changes Cardiovascular : No Chest Pain, positive SOB, positive Dyspnea on Exertion, No Edema Respiratory : positive Cough, No Sputum, positive Wheezing, Gastrointestinal : No Nausea, No Vomiting, No Diarrhea, No abdominal Pain Genitourinary : No Dysuria, No Hematuria Musculoskeletal : No joint pain, No Myalgias Skin : pos rash Neuro : No Weakness, No Numbness, No Headache Psych : No anxiety, depression Heme/Lymph: No Bruising, No Bleeding Endocrine : No Polyuria, No Polydipsia All other systems reviewed and are negative PMFSH Past Medical History Attestation statement: The following information was validated with the patient. Source: old records reviewed Medical History Type 2 diabetes mellitus Opioid dependence Constipation Salmonella gastroenteritis CHITO (obstructive sleep apnea) Obesity with alveolar hypoventilation Congestive heart failure Chronic constipation Acute respiratory failure Hypertensive cardiovascular disease Pulmonary nodule Chronic respiratory failure Tobacco abuse Asthma-COPD overlap syndrome Hyperlipidemia, unspecified Essential hypertension Chronic respiratory failure Surgical History H/O tubal ligation Family History Family History Father Diabetes Other Asthma Social History Social History Household Members: Children Household Members Other:: daughter Housing: Apartment Do you presently have visiting nurse or other home services: Yes Unable to assess alcohol history related to: Unknown Alcohol intake: never Comment: patient refusing bed alarm Patient Tobacco Use Status: Never used Tobacco Tobacco use type: Cigarette Cigarettes Per Day: 1 Years Smoked: 35 Smoked in Last 30 Days: No e-Cigarette/Vaping Use: Currently Using Second Hand Smoke Exposure: No Use of substances other than those prescribed or required for medical reasons: No Substance Use Type: Opiates Advance Directives: Yes Advance Directives on File: Yes Advance Directives Date on File: 06/12/21 Do you have a plan to hurt others: No Plan service: No Current occupational status: unemployed and disabled Physical Exam 2 Vital Signs: Vital Signs: Last Vital Signs Temp 98 F 07/09/23 10:05 Pulse 112 H 07/09/23 10:57 Resp 20 07/09/23 10:57 BP 168/70 H 07/09/23 10:05 Pulse Ox 94 07/09/23 10:05 O2 Del Method Nasal Cannula 07/09/23 10:05 O2 Flow Rate 2 07/09/23 10:05 Oxygen Flow Rate 2 07/09/23 08:40 BMI result Body Mass Index 43.0 Appearance: Alert. Oriented X3. No acute distress. Eyes: Pupils equal, round and reactive to light. ENT: Pharynx normal. Neck: Normal inspection. Neck supple. CVS: Normal heart rate and rhythm. Pulses normal. Respiratory: No respiratory distress. Breath sounds diminished throughout Abdomen: Soft and nontender. Skin: Skin warm and dry. Normal skin color. Normal skin turgor. Extremities: 1+ pitting right lower extremity edema. Leg is red and hot to touch calf to knee area no abscess felt Neuro: Oriented X 3. No motor deficit. No sensory deficit. Medications Administered Discontinued Medications Generic Name Dose Route Start Last Admin Trade Name Freq PRN Reason Stop Dose Admin Albuterol Sulfate 2.5 mg/ 5 mg 07/09/23 10:52 07/09/23 10:57 Albuterol Sulfate 2.5 mg INHALE 07/09/23 10:53 5 mg ONCE ONE Administration Albuterol Sulfate 5 mg/ 0 mg 07/09/23 08:35 07/09/23 08:43 Albuterol/Ipratropium 3 ml INHALE 07/09/23 08:36 7.5 each ONCE ONE Administration Piperacillin Sod/Tazobactam 50 mls @ 100 mls/hr 07/09/23 08:49 07/09/23 10:25 Sod 3.375 gm/ Sodium Chloride IV 07/09/23 09:18 100 mls/hr ONCE ONE Administration Methylprednisolone Sodium Succinate 60 mg 07/09/23 08:40 07/09/23 10:24 Methylprednisolone Sod Succ 125 Mg/2 Ml Vial IVPUSH 07/09/23 08:41 60 mg ONCE ONE Administration Ondansetron HCl 4 mg 07/09/23 08:49 07/09/23 10:25 Ondansetron Hcl 4 Mg/2 Ml Vial IVPUSH 07/09/23 08:50 4 mg ONCE ONE Administration Medical Decision Making Medical Decision Making MDM Narrative: 53 yo female well known to [facility] of end stage asthma and COPD on home O2 and Bipap use, chronic methadone use, obesity, DM, CHITO, HLD, chronic respiratory failure at this time chronic respiratory failure - nebs, IV solumedrol and basic labs, EKG, CXR - will also treat her RLE cellulitis with zosyn - no signs of abscess or necrotizing infection she is NV intact. Differential Diagnosis Differential Diagnoses: The differential diagnosis associated with the presentation includes asthma, cellulitis Admission/Observation Consideration of admission/observation: Escalation of care including admission/observation considered repeat nebs, admit for asthma and cellulitisl Consult Healthcare Provider Management of the patient was discussed with: Hospitalist (will admit) Lab Data [facility] Lab Attestation statement: I reviewed the patient's lab results. 07/09/23 09:18 07/09/23 09:18 Labs: Lab Results 07/09/23 07/09/23 Range/Units 09:18 09:23 WBC 12.1 H (4.8-10.8) X10*3/uL RBC 3.62 L (4.20-5.50) X10*6/uL Hgb 11.2 L (12.0-16.0) g/dl Hct 35.9 L (37.0-47.0) % MCV 99.2 H (80.0-98.0) fL MCH 30.9 (27.0-33.0) pg MCHC 31.2 (31.0-35.0) g/dl RDW 14.0 (11.0-16.0) % Plt Count 257 (160-400) X10*3/uL MPV 9.4 (9.4-12.3) fL Immature Gran % (Auto) 2.0 H (0.0-0.4) % Neut % (Auto) 80.0 H (45-73) % Lymph % (Auto) 10.3 L (20-40) % [place] % (Auto) 7.0 (2-11) % Eos % (Auto) 0.3 (0-4) % Baso % (Auto) 0.4 (0-2) % Lymph # (Auto) 1.3 (1.2-4.9) X10*3/uL [place] # (Auto) 0.8 (0.1-1.2) X10*3/uL Eos # (Auto) 0.0 (0.0-0.4) X10*3/uL Baso # (Auto) 0.1 (0.0-0.2) X10*3/uL Abs Immat Gran (auto) 0.24 H (0.00-0.03) X10*3/uL Absolute Neuts (auto) 9.7 H (2.0-8.3) x10*3/uL Absolute Nucleated RBC 0.040 H (0.0-0.012) X10*3/uL Nucleated RBC % (auto) 0.3 H (0.0-0.2) /100WBC Smear Tech's Comments VERIFIED Hold Purple Top SEE NOTE VBG pH 7.50 H (7.32-7.43) VBG pCO2 56 mmHg VBG pO2 84 mmHg VBG HCO3 44 H (22-26) mmol/L VBG O2 Saturation 98.0 % VBG Base Excess 18.9 mmol/L Sodium 141 (135-145) mmol/L Potassium 3.4 (3.3-5.1) mmol/L Chloride 95 L (96-108) mmol/L Carbon Dioxide 38 H (22-29) mmol/L Anion Gap 11 L (12-20) BUN 14 (9-16) mg/dL Creatinine 0.56 (0.5-1.4) mg/dL Estim Creat Clear Calc 123.3 Estimated GFR > 60 Random Glucose 145 H (60-115) mg/dL Lactic Acid 1.5 (0.5-2.0) mmol/L Calcium 10.3 H (8.4-10.2) mg/dL Magnesium 1.9 (1.6-2.6) mg/dL Total Bilirubin 0.2 (0.0-1.0) mg/dL AST 20 (5-31) U/L ALT 31 (0-31) U/L Alkaline Phosphatase 49 (39-117) U/L B-Natriuretic Peptide 32 (<100) pg/mL Total Protein 6.5 (6.5-8.0) g/dL Albumin 3.8 (3.5-5.0) g/dL Influenza Type A (PCR) NEGATIVE (Negative) Influenza Type B (PCR) NEGATIVE (Negative) RSV RNA Qual (PCR) NEGATIVE (Negative) SARS-CoV-2 RNA (RT-PCR) NEGATIVE (Negative) Independent Interpretation I performed an independent interpretation of an: EKG and Plain X-Ray (no pneumonia) Interpretation: Rate: 103 Rhythm: sinus tach Gordon: left Normal P waves. Normal SHAHNAZ. incomplete RBBB ST T wave : no MIO, t wave inversions V1-V2 qTC: 489 prior studies: no change from priors The study has been interpreted contemporaneously by me. . Independent Historian Clinical information obtained from an independent historian. History obtained from or confirmed by: EMS External Record Review External record reviewed: Inpatient record Critical Care Time Critical Care Time Critical Care Time: Yes Total Critical Care Time: 45 Attestation: repeat nebs, review of records, repeat assessments I attest to this time spent taking care of the patient Discharge Plan Discharge Clinical Impression: Asthma, Cellulitis Patient Disposition: Admitted As Inpatient Prescriptions: No Action gabapentin 300 mg capsule 300 mg PO BID Qty: 60 11RF albuterol sulfate [ProAir HFA] 90 mcg/actuation HFA aerosol inhaler 2 puff inhalation Q4H PRN (Reason: Shortness Of Breath Or Wheezing) Qty: 1 0RF omeprazole 40 mg capsule,delayed release(DR/EC) 40 mg PO DAILY@0630 30 Days Qty: 30 6RF furosemide 20 mg tablet 40 mg PO DAILY 90 Days Qty: 180 0RF ipratropium-albuterol 0.5 mg-3 mg(2.5 mg base)/3 mL solution for nebulization 3 ml PO Q4H PRN (Reason: for wheezing) Qty: 540 6RF diltiazem HCl [Tiadylt ER] 360 mg capsule,extended release 24 hr 360 mg PO DAILY rosuvastatin 5 mg tablet 5 mg PO BEDTIME roflumilast [Daliresp] 500 mcg tablet 500 mcg PO DAILY metformin 500 mg tablet extended release 24 hr 500 mg PO DAILY hydralazine 25 mg tablet 25 mg PO TIDWM insulin lispro 100 unit/mL solution 4 unit subcut TIDAC PRN (Reason: Hyperglycemia) Rx Instructions: per sliding scale methadone 10 mg/mL Concentrate 50 mg PO DAILY Patient Comments: [facility]MINIST[facility] lamotrigine 150 mg tablet 150 mg PO BID calcitonin (salmon) 200 unit/actuation spray,non-aerosol 1 spray intranasal DAILY Rx Instructions: one nostril every day, alternate sides. insulin glargine [Lantus U-100 Insulin] 100 unit/mL solution 45 unit subcut BEDTIME docusate sodium 100 mg capsule 100 mg PO BID PRN (Reason: constipation) clonazepam 1 mg tablet 1 mg PO BID PRN (Reason: Anxiety) polyethylene glycol 3350 [Miralax] 17 gram/dose powder 17 g PO DAILY ammonium lactate 12 % lotion 1 appl topical DAILY zolpidem 5 mg tablet 5 mg PO BEDTIME PRN (Reason: Sleep) Rx Instructions: use with 100% BIPAP compliance only diclofenac sodium 1 % gel 4 g TOPICAL QID PRN (Reason: Pain) cholecalciferol (vitamin D3) 1,250 mcg (50,000 unit) capsule 1,250 mcg PO 2XW lidocaine 5 % adhesive patch,medicated 1 patch topical QAM PRN (Reason: Pain) azathioprine 50 mg tablet 100 mg PO DAILY prednisone 20 mg tablet 40 mg PO DAILY 5 Days Qty: 10 0RF montelukast 10 mg tablet 10 mg PO BEDTIME loratadine [Claritin] 10 mg tablet 10 mg PO DAILY (DME) compress.stocking,knee,reg,med Misc See Rx Instructions .Route Qty: 2 0RF Rx Instructions: 15-20 cm arformoterol [Brovana] 15 mcg/2 mL solution for nebulization 2 ml inhalation Q12H 30 Days Qty: 120 11RF budesonide 0.5 mg/2 mL suspension for nebulization 0.5 mg inhalation BID Qty: 120 11RF tiotropium bromide [Spiriva with HandiHaler] 18 mcg capsule, w/inhalation device 1 cap inhalation DAILY Qty: 30 11RF (DME) nebulizers Misc See Rx Instructions .ROUTE Rx Instructions: As directed folic acid 1 mg tablet 1 mg PO DAILY 30 Days Qty: 30 6RF Print Language: Yakut
[2023-07-09 09:28] LABS: Venous Blood Gas Refer to POC result
[2023-07-09 09:28] LABS: VBG Base Excess 18.9 mmol/L; VBG HCO3 44 mmol/L (22-26); VBG pCO2 56 mmHg; VBG pO2 84 mmHg
[2023-07-09 09:30] LABS: Basophils Absolute Auto 0.1 X10*3/uL (0.0-0.2); Basophils Percent Auto 0.4 % (0-2); Eosinophils Percent Auto 0.3 % (0-4); Hematocrit 35.9 % (37.0-47.0); Hemoglobin 11.2 g/dl (12.0-16.0); Imm Gran Abs Auto 0.24 X10*3/uL (0.00-0.03); Lymphocytes Absolute Auto 1.3 X10*3/uL (1.2-4.9); Lymphocytes Percent Auto 10.3 % (20-40); MANUAL DIFF FLAG SCAN; Mean Corpuscular HGB Conc 31.2 g/dl (31.0-35.0); Mean Corpuscular Hemoglobin 30.9 pg (27.0-33.0); Mean Corpuscular Volume 99.2 fL (80.0-98.0); Monocytes Absolute Auto 0.8 X10*3/uL (0.1-1.2); NRBC Pct Auto 0.3 /100WBC (0.0-0.2); Neutrophils Absolute Auto 9.7 x10*3/uL (2.0-8.3); PLT CLUMP 1; Red Blood Count 3.62 X10*6/uL (4.20-5.50); SCAN SMEAR FLAG 1
[2023-07-09 09:45] LABS: Alanine Aminotransferase 31 U/L (0-31); Albumin Level 3.8 g/dL (3.5-5.0); Alkaline Phosphatase 49 U/L (39-117); Anion Gap 11 (12-20); Aspartate Amino Transferase 20 U/L (5-31); Bilirubin Total 0.2 mg/dL (0.0-1.0); Blood Urea Nitrogen 14 mg/dL (9-16); Calcium 10.3 mg/dL (8.4-10.2); Carbon Dioxide 38 mmol/L (22-29); Chloride 95 mmol/L (96-108); Creatinine Clr Calc Pharmacy 123.3; Estimated Glomerular Filt Rate > 60; Glucose Random 145 mg/dL (60-115); Magnesium 1.9 mg/dL (1.6-2.6); Potassium 3.4 mmol/L (3.3-5.1); Sodium 141 mmol/L (135-145); Total Protein 6.5 g/dL (6.5-8.0)
[2023-07-09 09:48] LABS: Lactic Acid 1.5 mmol/L (0.5-2.0)
[2023-07-09 09:51] LABS: B Type Natriuretic Peptide 32 pg/mL (<100)
[2023-07-09] MEDS: methylPREDNISolone Sod Succ 125 MG/2 ML VIAL 60 MG IVPUSH (10:24)
[2023-07-09 10:25] LABS: Influenza A PCR NEGATIVE (Negative); Influenza B PCR NEGATIVE (Negative); Resp Syncy Virus RNA Qual PCR NEGATIVE (Negative); SARS COV2 PCR INHOUSE NEGATIVE (Negative)
[2023-07-09] MEDS: ondansetron HCL 4 MG/2 ML VIAL IVPUSH (10:25)
[2023-07-09] MEDS: Piperacillin Sodium/Tazobactam 3.375 GM in 0.9 % Sodium Chloride 50 ML IV (10:25)
[2023-07-09 10:51] LABS: Mean Platelet Volume 9.4 fL (9.4-12.3); Platelet Count 257 X10*3/uL (160-400); White Blood Count 12.1 X10*3/uL (4.8-10.8)
[2023-07-09 10:52] LABS: SLIDE REVIEW VERIFIED
[2023-07-09] MEDS: Albuterol Sulfate 2.5 MG, Albuterol Sulfate (0.083%) 2.5 MG 5 MG INHALE (10:57)
--- NOTE | 2023-07-09 11:59 | PM.IMHP ---
History of Present Illness Date of Service: 07/09/23 Chief Complaint: Shortness of breath 53 yo female well known to hospitalist team with PMH of end stage asthma and COPD on home O2 and Bipap use, chronic methadone use, obesity, DM, CHITO, HLD, chronic respiratory failure, notes she started to cough yesterday no fevers, no sputum production did her Bipap and inhalers and started to feel better. She notes she had some nausea, chills and noted her right leg which is chronically swollen now is red and hot to touch starting yesterday. She denied fever, open wounds or weeping areas. She was placed on BiPAP in the ER and does feel better. Chest x-ray negative for consolidation or effusion. All labs within acceptable limits, vital signs stable. Will admit patient for acute on chronic hypoxic and hypercarbic respiratory failure. Review of Systems Review of Systems: Denies any recent fever chills or decrease in appetite respiratory see HPI cardiovascular denies chest pain gastrointestinal denies any dysphagia abdominal pain nausea vomiting or diarrhea genitourinary denies any dysuria frequency or hematuria musculoskeletal denies any joint pain or swelling neuropsych denies any weakness or seizures all other systems reviewed are negative [facility] Medical History Type 2 diabetes mellitus Opioid dependence Constipation Salmonella gastroenteritis CHITO (obstructive sleep apnea) Obesity with alveolar hypoventilation Congestive heart failure Chronic constipation Acute respiratory failure Hypertensive cardiovascular disease Pulmonary nodule Chronic respiratory failure Tobacco abuse Asthma-COPD overlap syndrome Hyperlipidemia, unspecified Essential hypertension Chronic respiratory failure Family History Father Diabetes Other Asthma Surgical History H/O tubal ligation Social History Household Members: Children Household Members Other:: daughter Housing: Apartment Do you presently have visiting nurse or other home services: Yes Unable to assess alcohol history related to: Unknown Alcohol intake: never Comment: patient refusing bed alarm Patient Tobacco Use Status: Never used Tobacco Tobacco use type: Cigarette Cigarettes Per Day: 1 Years Smoked: 35 Smoked in Last 30 Days: No e-Cigarette/Vaping Use: Currently Using Second Hand Smoke Exposure: No Use of substances other than those prescribed or required for medical reasons: No Substance Use Type: Opiates Advance Directives: Yes Advance Directives on File: Yes Advance Directives Date on File: 06/12/21 Do you have a plan to hurt others: No Plan service: No Current occupational status: unemployed and disabled Meds Allergies Allergy/AdvReac Type Severity Reaction Status Date / Time No Known Allergies Allergy Verified 07/09/23 08:43 [No Known Allergies*] Active Medications: Current Medications Acetaminophen (Acetaminophen 325 Mg Tablet) 650 mg PO Q6H PRN PRN Reason: Pain, Mild (Pain Scale 1-3) Heparin Sodium (Porcine) (Heparin Sodium,Porcine 5,000 Unit/Ml Vial) 5,000 unit SUBCUT Q12H ANA Ondansetron HCl (Ondansetron Hcl 4 Mg/2 Ml Vial) 4 mg IVPUSH Q8H PRN PRN Reason: Nausea and Vomiting Sodium Chloride (0.9 % Sodium Chloride Flush 3 Ml Syringe) 3 ml IVFLUSH QSHIFT [facility] Home Medications ?Medication ?Instructions ?Recorded ?Confirmed ?Last Taken ?Type loratadine 10 mg tablet (Claritin) 10 mg PO DAILY 12/30/19 07/09/23 05/18/23 History montelukast 10 mg tablet 10 mg PO BEDTIME 12/30/19 07/09/23 05/18/23 History diltiazem HCl 360 mg capsule,24 360 mg PO DAILY 11/16/20 07/09/23 05/18/23 History hr,extended release (Tiadylt ER) roflumilast 500 mcg tablet 500 mcg PO DAILY 11/16/20 07/09/23 05/18/23 History (Daliresp) rosuvastatin 5 mg tablet 5 mg PO BEDTIME 11/16/20 07/09/23 05/18/23 History metformin 500 mg tablet,extended 500 mg PO DAILY 05/18/21 07/09/23 05/18/23 History release 24 hr methadone 10 mg/mL oral concentrate 50 mg PO DAILY 06/06/21 06/06/23 06/01/23 History hydralazine 25 mg tablet 25 mg PO TIDWM 11/02/21 07/09/23 05/18/23 History insulin lispro 100 unit/mL 4 unit subcut TIDAC PRN 11/02/21 07/09/23 05/18/23 History subcutaneous solution Hyperglycemia clonazepam 1 mg tablet 1 mg PO BID PRN Anxiety 06/28/22 07/09/23 Unknown History lamotrigine 150 mg tablet 150 mg PO BID 07/29/22 07/09/23 05/18/23 History calcitonin (salmon) 200 1 spray intranasal DAILY 09/30/22 07/09/23 05/18/23 History unit/actuation nasal spray insulin glargine 100 unit/mL 45 unit subcut BEDTIME 09/30/22 07/09/23 05/18/23 History subcutaneous solution (Lantus U-100 Insulin) docusate sodium 100 mg capsule 100 mg PO BID PRN constipation 10/20/22 07/09/23 Unknown History nebulizers 11/08/22 04/08/23 02/02/23 09:00 History polyethylene glycol 3350 17 17 g PO DAILY constipation 12/21/22 07/09/23 02/20/23 History gram/dose oral powder (Miralax) ammonium lactate 12 % lotion 1 appl topical DAILY Rash 02/02/23 07/09/23 05/18/23 History diclofenac sodium 1 % topical gel 4 g topical QID PRN Pain 05/04/23 07/09/23 Unknown History zolpidem 5 mg tablet 5 mg PO BEDTIME PRN Sleep 05/04/23 07/09/23 Unknown History cholecalciferol (vitamin D3) 1,250 1,250 mcg PO MOTH 05/19/23 07/09/23 Unknown History mcg (50,000 unit) capsule lidocaine 5 % topical patch 1 patch topical QAM PRN Pain 05/19/23 07/09/23 Unknown History azathioprine 50 mg tablet 100 mg PO DAILY 06/24/23 07/09/23 Unknown History Physical Exam Vital Signs and Narrative: Vital Signs: Last Vital Signs Temp 98 F 07/09/23 10:05 Pulse 112 H 07/09/23 10:57 Resp 20 07/09/23 10:57 BP 168/70 H 07/09/23 10:05 Pulse Ox 94 07/09/23 10:05 O2 Del Method Nasal Cannula 07/09/23 10:05 O2 Flow Rate 2 07/09/23 10:05 Oxygen Flow Rate 2 07/09/23 08:40 BMI result Body Mass Index 43.0 Appearing in no acute distress head is normocephalic atraumatic eyes pupils are PERRLA sclera is anicteric mouth throat mucous membranes are intact and moist neck is supple no lymphadenopathy, no JVD noted lung sounds diminished heart regular rate rhythm, clear S1, S2 positive bowel sounds, abdomen is soft, nontender neuro patient is alert x3, no focal deficits RLE edema, no erythema Results Labs 07/09/23 09:18 07/09/23 09:18 Labs: Laboratory Results - last 24 hr 07/09/23 07/09/23 09:18 09:23 MCV 99.2 H MCH 30.9 MCHC 31.2 RDW 14.0 Plt Count 257 MPV 9.4 Immature Gran % (Auto) 2.0 H Neut % (Auto) 80.0 H Lymph % (Auto) 10.3 L [place] % (Auto) 7.0 Eos % (Auto) 0.3 Baso % (Auto) 0.4 Lymph # (Auto) 1.3 [place] # (Auto) 0.8 Eos # (Auto) 0.0 Baso # (Auto) 0.1 Abs Immat Gran (auto) 0.24 H Absolute Neuts (auto) 9.7 H Absolute Nucleated RBC 0.040 H Nucleated RBC % (auto) 0.3 H Smear Tech's Comments VERIFIED Hold Purple Top SEE NOTE VBG pH 7.50 H VBG pCO2 56 VBG pO2 84 VBG HCO3 44 H VBG O2 Saturation 98.0 VBG Base Excess 18.9 Anion Gap 11 L Estim Creat Clear Calc 123.3 Estimated GFR > 60 Random Glucose 145 H Lactic Acid 1.5 Calcium 10.3 H Magnesium 1.9 Total Bilirubin 0.2 AST 20 ALT 31 Alkaline Phosphatase 49 B-Natriuretic Peptide 32 Total Protein 6.5 Albumin 3.8 Influenza Type A (PCR) NEGATIVE Influenza Type B (PCR) NEGATIVE RSV RNA Qual (PCR) NEGATIVE SARS-CoV-2 RNA (RT-PCR) NEGATIVE Imaging Radiologist's Impressions: Impressions Chest X-Ray 07/09/23 10:22 IMPRESSION: Potential 1.7 cm nodular density projecting over the left costophrenic angle. Chest CT is recommended. Assessment and Plan (1) Cellulitis: Qualifiers: Laterality: left Site of cellulitis: extremity Site of cellulitis of extremity: lower extremity Qualified Code(s): L03.116 - Cellulitis of left lower limb Status: Acute (2) Acute and chronic respiratory failure with hypercapnia: Status: Acute Plan 53-year-old female with pertinent history of chronic hypoxemic hypercapnic respiratory failure due to asthma-COPD overlap syndrome/OHS on 2 L baseline supplemental oxygen and nocturnal BiPAP, insulin-dependent diabetes mellitus, essential hypertension, mixed hyperlipidemia, opioid dependence on methadone, mood disorder who presents to the emergency department for evaluation of dyspnea. Acute respiratory distress on chronic hypoxemic hypercarbic respiratory failure due to exacerbation of asthma-COPD overlap syndrome Will admit patient with supplemental oxygen, uses 2 L at baseline. Initiating systemic steroids. Scheduled and p.r.n. DuoNebs. Continue home inhalers. Continue nocturnal BiPAP. Right leg edema no cellulitis or infection Had similar presentation last month, venous doppler us neg for dvt 06/05/23 SEUN stocking for compression Insulin-dependent diabetes mellitus with hyperglycemia Initiating basal plus insulin regimen ada diet Essential hypertension Continue home antihypertensives Mixed hyperlipidemia On statin Opioid dependence on methadone Mood disorder continue home mood stabilizers Morbid obesity Discussed importance of weight management as this may be contributing to worsening of other comorbidities Congestive heart failure with preserved ejection fraction No exacerbation Continue home Lasix Gastroesophageal reflux disease On PPI DVT prophylaxis: heparin Full code Admit as inpatient and will require two night minimum hospital stay for IV steroids, scheduled frequent bronchodilator therapy, close monitoring of respiratory status in a patient with frequent hospitalization due to exacerbation of obstructive lung disease and high risk for decompensation (as above), which is not possible in a lesser acute setting. Quality Stroke Does the patient have a stroke diagnosis?: No VTE Prior VTE?: No VTE Risk Level:: Medical - moderate - high VTE Device Contraindication: Treatment Not Indicated VTE Drug Contraindication: N/A - Med Ordered
[2023-07-09] MEDS: Heparin Sodium,Porcine 5,000 UNIT/ML VIAL 5000 UNIT SUBCUT ×2 (12:36→23:26)
--- NOTE | 2023-07-09 12:44 | PHA.MEDREC ---
Pharmacy Consult ? Medication Reconciliation Pharmacy has completed the medication reconciliation. Patient recently discharged, every time she comes in she tells us nothing has changed since her last visit. Utilized claim history and recent discharge summary
[2023-07-09] MEDS: Acetaminophen 325 MG TABLET 650 MG PO (12:54)
--- NOTE | 2023-07-09 14:00 | PC.NURSE ---
Pt request BiPAP for sleeping. Settings 30/10//%
[2023-07-09] MEDS: 0.9 % Sodium Chloride Flush 3 ML SYRINGE IVFLUSH ×2 (17:36→23:27)
[2023-07-09] MEDS: Albuterol/Iprat 2.5/0.5MG 3 ML AMPUL.NEB INHALE ×2 (17:52→20:56)
[2023-07-09 19:39] LABS: Glucose, Whole Blood 302 mg/dL (60-115)
--- NOTE | 2023-07-09 21:31 | MHC.CM.PN ---
CM met with admitted patient with bed assignment pending. wool buyer used as patient is [place]ian speaking only. A&Ox4. Lives with her daughter. Pt uses home oxygen at 2L and bipap at home. Pt uses a cane, wheelchair and walker. Pt has 8 hours of [employer]CH[employer]ICIAN/daily. Pt has daily VNA. Cannot remember what agency. Verified PCP. Pt has a HCP on file. Pt does not want to have a HCP at this time.States she needs to speak with them about her wishes. HCP on file was made in 2018. When questioned again about removing HCP, patient acknowledges that she does not want one at this time. Given [place] paperwork on completing a HCP and informed patient that CM can complete another one during her stay. HCP has been removed from medical record. Pt is a full code. THRIVE assessment negative. Pt believes she can go home with existing services at discharge. Not interested in STR. Pt will need BLS home, unless family can transport her home. CM will follow for any discharge planning.
[2023-07-09] MEDS: lamoTRIgine 25 MG TABLET 150 MG PO (23:12)
[2023-07-09] MEDS: Atorvastatin Calcium 20 MG TABLET PO (23:13)
[2023-07-09] MEDS: Insulin Glargine,Hum.rec.anlog 100 UNIT/ML 10 ML VIAL 45 UNIT SUBCUT (23:13)
[2023-07-09] MEDS: Gabapentin 300 MG CAPSULE PO (23:13)
[2023-07-09] MEDS: Montelukast Sodium 10 MG TABLET PO (23:13)
[2023-07-09] MEDS: methylPREDNISolone Sod Succ 40 MG/ML VIAL IVPUSH (23:14)
[2023-07-09] MEDS: clonazePAM 1 MG TABLET PO (23:26)
[2023-07-10] VITALS (15 sets, daily range): BP systolic 140–186; BP diastolic 62–112; PULSE 85–117; RESP 15–21; TEMP 36.3–37.1; O2SAT 93–98; BMI 42.7
--- NOTE | 2023-07-10 00:38 | MHC.EDTECH ---
This tech took over care of patient at 2300,Hourly rounds and vitals completed,BP elevated 171/91 RN Lesly aware. Patient got up to commode with minimal assist ,urinated a large amount. Patient is resting back in bed and call lu in reach
--- NOTE | 2023-07-10 03:58 | MHC.EDTECH ---
Hourly rounds and vitals completed,BP elevated 171/101 RN is aware. Patient is resting comfortably call lu in reach
--- NOTE | 2023-07-10 05:27 | PC.NURSE ---
Patient resting comfortably in a stretcher bed, VSS, nocturnal CPAP in place, saturating 95-96%. Patient denies any pain. Call lu in reach.
[2023-07-10] MEDS: methylPREDNISolone Sod Succ 40 MG/ML VIAL IVPUSH ×3 (05:41→22:03)
[2023-07-10] MEDS: Omeprazole 40 MG CAPSULE.DR PO (05:41)
[2023-07-10 05:42] LABS: Alanine Aminotransferase 29 U/L (0-31); Albumin Level 3.6 g/dL (3.5-5.0); Anion Gap 10 (12-20); Aspartate Amino Transferase 16 U/L (5-31); Bilirubin Total 0.2 mg/dL (0.0-1.0); Blood Urea Nitrogen 18 mg/dL (9-16); Calcium 9.6 mg/dL (8.4-10.2); Carbon Dioxide 37 mmol/L (22-29); Chloride 96 mmol/L (96-108); Creatinine Clr Calc Pharmacy 107.9; Estimated Glomerular Filt Rate > 60; Glucose Random 249 mg/dL (60-115); Potassium 5.2 mmol/L (3.3-5.1); Sodium 138 mmol/L (135-145); Total Protein 6.3 g/dL (6.5-8.0)
[2023-07-10] MEDS: Acetaminophen 325 MG TABLET 650 MG PO (05:49)
[2023-07-10 05:57] LABS: Alkaline Phosphatase 49 U/L (39-117)
--- NOTE | 2023-07-10 06:19 | MHC.EDTECH ---
Hourly rounds and vitals completed,BP elevated 181/104 RN aware.Patient got up to commode with minimal assist,patient urinated a large amount.
--- NOTE | 2023-07-10 06:46 | PC.NURSE ---
Patient used a bedside commode and requested to be off nocturnal BIPAP. Vital signs competed and noted: HR 120, BP 186/94, RR O2 Sat 93% on 4 LPM NC. Patient denies chest pain/headache/dyspnea at baseline. Dr. Barker notified.
[2023-07-10] MEDS: dilTIAZem HCL CD 180 MG CAP.ER.24H 360 MG PO (07:02)
[2023-07-10 07:28] LABS: Glucose, Whole Blood 222 mg/dL (60-115)
[2023-07-10] MEDS: Albuterol/Iprat 2.5/0.5MG 3 ML AMPUL.NEB INHALE ×4 (07:45→19:41)
[2023-07-10] MEDS: Tiotropium Bromide 2.5 mcg 1 PUFF/2.5 MCG MIST.INHAL 2 PUFF INHALE (07:45)
--- NOTE | 2023-07-10 08:45 | PC.NURSE ---
pt is resting in the stretcher, skin appropriate for ethnicity, respirations even and unlabored, ls diminished through the bases, pt is on [place] nasal cannual at 3l and sating anywhere from 95-99% pt is concern that she will start retaining at home usually at 2l so dropped down to 2l via [place] cannula, pt denies pain at this. Cardizam given early at 0702 will be holding the 0900 to early to given
[2023-07-10] MEDS: Gabapentin 300 MG CAPSULE PO ×2 (08:48→19:54)
[2023-07-10] MEDS: Loratadine 10 MG TABLET PO (08:48)
[2023-07-10] MEDS: Furosemide 40 MG TABLET PO (08:48)
[2023-07-10] MEDS: hydrALAZINE HCl 25 MG TABLET PO ×3 (08:49→17:18)
[2023-07-10] MEDS: lamoTRIgine 25 MG TABLET 150 MG PO ×2 (08:49→19:52)
[2023-07-10] MEDS: Folic Acid 1 MG TABLET PO (08:49)
[2023-07-10] MEDS: metFORMIN HCl ER 500 MG TAB.ER.24H PO (08:49)
[2023-07-10] MEDS: polyethylene glycoL 3350 17 GM POWD.PACK PO (08:50)
[2023-07-10] MEDS: 0.9 % Sodium Chloride Flush 3 ML SYRINGE IVFLUSH ×3 (08:50→22:03)
--- NOTE | 2023-07-10 08:58 | HE.PHANOTE ---
RE: methadone Received last dose for methadone 07/08 @0900 50mg
[2023-07-10 08:59] LABS: Basophils Percent Auto 0.2 % (0-2); Hematocrit 39.6 % (37.0-47.0); Hemoglobin 12.2 g/dl (12.0-16.0); Imm Gran Abs Auto 0.21 X10*3/uL (0.00-0.03); Imm Gran Pct Auto 1.3 % (0.0-0.4); Lymphocytes Absolute Auto 0.5 X10*3/uL (1.2-4.9); MANUAL DIFF FLAG SCAN; Mean Corpuscular HGB Conc 30.8 g/dl (31.0-35.0); Mean Corpuscular Hemoglobin 30.6 pg (27.0-33.0); Mean Corpuscular Volume 99.2 fL (80.0-98.0); Monocytes Absolute Auto 0.5 X10*3/uL (0.1-1.2); NRBC Pct Auto 0.2 /100WBC (0.0-0.2); Neutrophils Absolute Auto 14.9 x10*3/uL (2.0-8.3); Neutrophils Percent Auto 92.5 % (45-73); Platelet Count 271 X10*3/uL (160-400); Red Blood Count 3.99 X10*6/uL (4.20-5.50); Red Cell Distribution Width 13.6 % (11.0-16.0); SCAN SMEAR FLAG 1; White Blood Count 16.1 X10*3/uL (4.8-10.8)
[2023-07-10 09:47] LABS: SLIDE REVIEW VERIFIED
[2023-07-10] MEDS: Roflumilast 500 MCG TABLET PO (10:28)
[2023-07-10] MEDS: azaTHIOprine 50 MG TABLET 100 MG PO (10:28)
[2023-07-10] MEDS: methADONE HCl 20 MG/2 ML ORAL.CONC 50 MG PO (10:28)
[2023-07-10] MEDS: Heparin Sodium,Porcine 5,000 UNIT/ML VIAL 5000 UNIT SUBCUT ×2 (11:38→22:03)
--- NOTE | 2023-07-10 11:44 | PC.NURSE ---
Assumed care of this patient at 1100, resting quietly on stretcher at this time, continues to be hypertensive, patient medicated per may.
[2023-07-10 13:03] LABS: Glucose, Whole Blood 268 mg/dL (60-115)
--- NOTE | 2023-07-10 13:17 | P.PNIM_ITS ---
Subjective Subjective Date of Service: 07/10/23 Interval History: Seen and examined this morning Follow-up for leg swelling, patient reports swelling of right lower extremity is somewhat improved from admission. Redness improving Breathing improving Review of Systems Review of Systems: Yes all other systems are reviewed and are negative Constitutional Constitutional: Denies chills and Denies fever(s) Cardiovascular Cardiovascular: Denies chest pain, Denies palpitations and Reports dyspnea Respiratory Respiratory: Denies cough and Reports dyspnea Gastrointestinal Gastrointestinal: Denies abdominal pain Endocrine Endocrine: Denies palpitations Physical Exam 2 Vital Signs: Vital Signs: Last Vital Signs Temp 98.3 F 07/10/23 06:16 Pulse 112 H 07/10/23 11:42 Resp 16 07/10/23 11:42 BP 175/85 H 07/10/23 11:42 Pulse Ox 95 07/10/23 11:42 O2 Del Method Nasal Cannula 07/10/23 11:42 O2 Flow Rate 2 07/10/23 11:42 FiO2 30 07/09/23 17:12 Oxygen Flow Rate 2 07/09/23 08:40 BMI result Body Mass Index 43.0 Const: General: cooperative, comfortable, alert and awake Nutritional Appearance: average body habitus Orientation/consciousness: patient oriented x3 Resp: Other: mild exp wheezing Effort & Inspection: normal respiratory effort, able to speak in complete sentences, no respiratory distress and no use of accessory muscles Cardio: Rate: tachycardic GI: Inspection: No distended Palpation (GI): Soft to palpation and nontender Neuro: General: patient oriented x3, moves all extremities and CN's II-XI intact bilaterally Extrem: Other: RLE with swelling and mild erythema Objective Data Active Medications Acetaminophen (Acetaminophen 325 Mg Tablet) 650 mg PO Q6H PRN PRN Reason: Pain, Mild (Pain Scale 1-3) Last Admin: 07/10/23 05:49 Dose: 650 mg Documented By: GUILLERMO Albuterol/Ipratropium (Albuterol/Iprat 2.5/0.5mg 3 Ml Ampul.Neb) 3 ml INHALE RQ4H WHILE AWAKE [facility] Last Admin: 07/10/23 12:02 Dose: 3 ml Documented By: HORACIO Atorvastatin Calcium (Atorvastatin Calcium 20 Mg Tablet) 20 mg PO BEDTIME [facility] Last Admin: 07/09/23 23:13 Dose: 20 mg Documented By: GUILLERMO Azathioprine (Azathioprine 50 Mg Tablet) 100 mg PO DAILY [facility] Last Admin: 07/10/23 10:28 Dose: 100 mg Documented By: BENJAMIN Clonazepam (Clonazepam 1 Mg Tablet) 1 mg PO BID PRN PRN Reason: Anxiety Last Admin: 07/09/23 23:26 Dose: 1 mg Documented By: GUILLERMO Diltiazem HCl (Diltiazem Hcl Cd 180 Mg Cap.Er.24h) 360 mg PO DAILY [facility]; Protocol Last Admin: 07/10/23 09:37 Dose: Not Given Documented By: BENJAMNI Non-Admin Reason: given a 07 Docusate Sodium (Docusate Sodium 100 Mg Capsule) 100 mg PO BID PRN PRN Reason: constipation Folic Acid (Folic Acid 1 Mg Tablet) 1 mg PO DAILY [facility] Last Admin: 07/10/23 08:49 Dose: 1 mg Documented By: BENJAMIN Furosemide (Furosemide 40 Mg Tablet) 40 mg PO DAILY [facility]; Protocol Last Admin: 07/10/23 08:48 Dose: 40 mg Documented By: BENJAMIN Gabapentin (Gabapentin 300 Mg Capsule) 300 mg PO BID [facility] Last Admin: 07/10/23 08:48 Dose: 300 mg Documented By: BENJAMIN Heparin Sodium (Porcine) (Heparin Sodium,Porcine 5,000 Unit/Ml Vial) 5,000 unit SUBCUT Q12H [facility] Last Admin: 07/10/23 11:38 Dose: 5,000 unit Documented By: WILMAN Hydralazine HCl (Hydralazine Hcl 25 Mg Tablet) 25 mg PO TIDWM [facility]; Protocol Last Admin: 07/10/23 11:39 Dose: 25 mg Documented By: WILMAN Insulin Glargine (Insulin Glargine,Hum.Rec.Anlog 100 Unit/Ml 10 Ml Vial) 45 unit SUBCUT BEDTIME [facility] Last Admin: 07/09/23 23:13 Dose: 45 unit Documented By: GUILLERMO Insulin Human Lispro (Insulin Lispro 100 Unit/Ml 3 Ml Vial) 4 unit SUBCUT TIDAC PRN PRN Reason: Hyperglycemia Lamotrigine (Lamotrigine 25 Mg Tablet) 150 mg PO BID [facility] Last Admin: 07/10/23 08:49 Dose: 150 mg Documented By: BENJAMIN Loratadine (Loratadine 10 Mg Tablet) 10 mg PO DAILY [facility] Last Admin: 07/10/23 08:48 Dose: 10 mg Documented By: BENJAMIN Metformin HCl (Metformin Hcl Er 500 Mg Tab.Er.24h) 500 mg PO DAILY [facility] Last Admin: 07/10/23 08:49 Dose: 500 mg Documented By: BENJAMIN Methadone HCl (Methadone Hcl 20 Mg/2 Ml Oral.Conc) 50 mg PO DAILY [facility] Last Admin: 07/10/23 10:28 Dose: 50 mg Documented By: BENJAMIN Methylprednisolone Sodium Succinate (Methylprednisolone Sod Succ 40 Mg/Ml Vial) 40 mg IVPUSH Q8H [facility] Last Admin: 07/10/23 05:41 Dose: 40 mg Documented By: GUILLERMO Montelukast Sodium (Montelukast Sodium 10 Mg Tablet) 10 mg PO BEDTIME [facility] Last Admin: 07/09/23 23:13 Dose: 10 mg Documented By: GUILLERMO Omeprazole (Omeprazole 40 Mg Capsule.Dr) 40 mg PO DAILY@0630 [facility] Last Admin: 07/10/23 05:41 Dose: 40 mg Documented By: GUILLERMO Ondansetron HCl (Ondansetron Hcl 4 Mg/2 Ml Vial) 4 mg IVPUSH Q8H PRN PRN Reason: Nausea and Vomiting Polyethylene Glycol (Polyethylene Glycol 3350 17 Gm Powd.Pack) 17 gm PO DAILY [facility] Last Admin: 07/10/23 08:50 Dose: 17 gm Documented By: BENJAMIN Roflumilast (Roflumilast 500 Mcg Tablet) 500 mcg PO DAILY [facility] Last Admin: 07/10/23 10:28 Dose: 500 mcg Documented By: BENJAMIN Sodium Chloride (0.9 % Sodium Chloride Flush 3 Ml Syringe) 3 ml IVFLUSH QSHIFT [facility] Last Admin: 07/10/23 08:50 Dose: 3 ml Documented By: BENJAMIN Tiotropium [place] (Tiotropium [place] 2.5 Mcg 1 Puff/2.5 Mcg Mist.Inhal) 2 puff INHALE RDAILY [facility] Last Admin: 07/10/23 07:45 Dose: 2 puff Documented By: HORACIO Zolpidem Tartrate (Zolpidem Tartrate 5 Mg Tablet) 5 mg PO BEDTIME PRN PRN Reason: Sleep Labs 07/10/23 08:41 07/10/23 05:01 Labs: Laboratory Results - last 24 hr 07/09/23 07/10/23 07/10/23 19:33 05:01 07:25 MCV MCH MCHC RDW Plt Count MPV Immature Gran % (Auto) Neut % (Auto) Lymph % (Auto) Reynolds % (Auto) Eos % (Auto) Baso % (Auto) Lymph # (Auto) Reynolds # (Auto) Eos # (Auto) Baso # (Auto) Abs Immat Gran (auto) Absolute Neuts (auto) Absolute Nucleated RBC Nucleated RBC % (auto) Smear Tech's Comments Anion Gap 10 L Estim Creat Clear Calc 107.9 Estimated GFR > 60 POC Glucose 302 H 222 H Random Glucose 249 H Calcium 9.6 D Total Bilirubin 0.2 AST 16 ALT 29 Alkaline Phosphatase 49 Total Protein 6.3 L Albumin 3.6 07/10/23 07/10/23 08:41 12:59 MCV 99.2 H MCH 30.6 MCHC 30.8 L RDW 13.6 Plt Count 271 MPV 9.0 L Immature Gran % (Auto) 1.3 H Neut % (Auto) 92.5 H Lymph % (Auto) 3.0 L Reynolds % (Auto) 3.0 Eos % (Auto) 0.0 Baso % (Auto) 0.2 Lymph # (Auto) 0.5 L Reynolds # (Auto) 0.5 Eos # (Auto) 0.0 Baso # (Auto) 0.0 Abs Immat Gran (auto) 0.21 H Absolute Neuts (auto) 14.9 H Absolute Nucleated RBC 0.030 H Nucleated RBC % (auto) 0.2 Smear Tech's Comments VERIFIED Anion Gap Estim Creat Clear Calc Estimated GFR POC Glucose 268 H Random Glucose Calcium Total Bilirubin AST ALT Alkaline Phosphatase Total Protein Albumin Microbiology Microbiology Results: Microbiology 07/09/23 09:30 Blood Culture - Preliminary Blood - Venous No growth after 24 hours. 07/09/23 09:18 Blood Culture - Preliminary Blood - Venous No growth after 24 hours. Assessment and Plan (1) Acute and chronic respiratory failure with hypercapnia: Status: Acute Plan 53-year-old female with pertinent history of chronic hypoxemic hypercapnic respiratory failure due to asthma-COPD overlap syndrome/OHS on 2 L baseline supplemental oxygen and nocturnal BiPAP, insulin-dependent diabetes mellitus, essential hypertension, mixed hyperlipidemia, opioid dependence on methadone, mood disorder who presents to the emergency department for evaluation of dyspnea. Acute respiratory distress on chronic hypoxemic hypercarbic respiratory failure due to exacerbation of asthma-COPD overlap syndrome baseline supplemental oxygen, uses 2 L at baseline. Continue systemic steroids. Scheduled and p.r.n. DuoNebs. Continue home inhalers. Continue nocturnal BiPAP. Right leg edema no cellulitis or infection Had similar presentation last month, venous doppler us neg for dvt 06/05/23 SEUN stocking for compression repeat US keep leg elevated Blood cultures pending ID consult pending Hyperkalemia Mildly above baseline at 5.2 Repeat this afternoon Insulin-dependent diabetes mellitus with hyperglycemia Hyperglycemia due to steroid use Continue Lantus, sliding scale on metformin ada diet Essential hypertension Continue home antihypertensives Mixed hyperlipidemia On statin Opioid dependence on methadone Mood disorder continue home mood stabilizers Morbid obesity Discussed importance of weight management as this may be contributing to worsening of other comorbidities Congestive heart failure with preserved ejection fraction No exacerbation Continue home Lasix Gastroesophageal reflux disease On PPI DVT prophylaxis: heparin Full code Admit as inpatient and will require two night minimum hospital stay for IV steroids, scheduled frequent bronchodilator therapy, close monitoring of respiratory status in a patient with frequent hospitalization due to exacerbation of obstructive lung disease and high risk for decompensation (as above), which is not possible in a lesser acute setting. Quality Stroke Does the patient have a stroke diagnosis?: No VTE Prior VTE?: No VTE Risk Level:: Medical - moderate - high VTE Device Contraindication: Treatment Not Indicated VTE Drug Contraindication: N/A - Med Ordered
[2023-07-10 17:47] LABS: Glucose, Whole Blood 288 mg/dL (60-115)
[2023-07-10] MEDS: Insulin Lispro 100 UNIT/ML 3 ML VIAL SUBCUT ×2 (18:09→19:52)
[2023-07-10 19:31] LABS: Glucose, Whole Blood 297 mg/dL (60-115)
[2023-07-10] MEDS: Atorvastatin Calcium 20 MG TABLET PO (19:54)
[2023-07-10] MEDS: Montelukast Sodium 10 MG TABLET PO (19:54)
[2023-07-10] MEDS: Insulin Glargine,Hum.rec.anlog 100 UNIT/ML 10 ML VIAL 45 UNIT SUBCUT (19:54)
[2023-07-10] MEDS: clonazePAM 1 MG TABLET PO (22:02)
[2023-07-11] VITALS (15 sets, daily range): BP systolic 125–182; BP diastolic 85–104; PULSE 76–113; RESP 16–25; TEMP 36.2–37.1; O2SAT 94–98
[2023-07-11] MEDS: Albuterol/Iprat 2.5/0.5MG 3 ML AMPUL.NEB INHALE ×5 (03:47→19:15)
[2023-07-11] MEDS: Omeprazole 40 MG CAPSULE.DR PO (04:58)
[2023-07-11] MEDS: methylPREDNISolone Sod Succ 40 MG/ML VIAL IVPUSH ×2 (04:58→16:06)
[2023-07-11 07:26] LABS: Glucose, Whole Blood 354 mg/dL (60-115)
[2023-07-11] MEDS: Tiotropium Bromide 2.5 mcg 1 PUFF/2.5 MCG MIST.INHAL 2 PUFF INHALE (07:38)
[2023-07-11] MEDS: Insulin Lispro 100 UNIT/ML 3 ML VIAL SUBCUT ×4 (07:52→20:24)
[2023-07-11] MEDS: methADONE HCl 20 MG/2 ML ORAL.CONC 50 MG PO (07:52)
[2023-07-11] MEDS: Folic Acid 1 MG TABLET PO (07:53)
[2023-07-11] MEDS: lamoTRIgine 25 MG TABLET 150 MG PO ×2 (07:53→20:25)
[2023-07-11] MEDS: dilTIAZem HCL CD 180 MG CAP.ER.24H 360 MG PO (07:53)
[2023-07-11] MEDS: Loratadine 10 MG TABLET PO (07:53)
[2023-07-11] MEDS: Roflumilast 500 MCG TABLET PO (07:55)
[2023-07-11] MEDS: Gabapentin 300 MG CAPSULE PO ×2 (07:55→20:25)
[2023-07-11] MEDS: hydrALAZINE HCl 25 MG TABLET PO ×3 (07:55→16:05)
[2023-07-11] MEDS: azaTHIOprine 50 MG TABLET 100 MG PO (07:55)
[2023-07-11] MEDS: Furosemide 40 MG TABLET PO (07:55)
[2023-07-11] MEDS: metFORMIN HCl ER 500 MG TAB.ER.24H PO (07:56)
[2023-07-11] MEDS: polyethylene glycoL 3350 17 GM POWD.PACK PO (07:56)
[2023-07-11] MEDS: 0.9 % Sodium Chloride Flush 3 ML SYRINGE IVFLUSH ×3 (08:02→20:25)
[2023-07-11 11:27] LABS: Glucose, Whole Blood 308 mg/dL (60-115)
[2023-07-11] MEDS: Heparin Sodium,Porcine 5,000 UNIT/ML VIAL 5000 UNIT SUBCUT ×2 (11:40→23:04)
--- NOTE | 2023-07-11 13:37 | HO.PM.IMPN ---
Subjective Subjective Date of Service: 07/11/23 Physical Exam Vital Signs: Vital Signs: Last Vital Signs Temp 97.5 F 07/11/23 04:00 Pulse 100 07/11/23 07:53 Resp 16 07/11/23 04:00 BP 162/93 H 07/11/23 11:40 Pulse Ox 94 07/11/23 04:00 O2 Del Method BiPAP 07/11/23 04:00 O2 Flow Rate 2 07/10/23 19:11 FiO2 30 07/09/23 17:12 Oxygen Flow Rate 2 07/09/23 08:40 BMI result Body Mass Index 42.7 Const: General: cooperative, comfortable, alert and awake Nutritional Appearance: average body habitus Orientation/consciousness: patient oriented x3 Resp: Other: mild exp wheezing Effort & Inspection: normal respiratory effort, able to speak in complete sentences, no respiratory distress and no use of accessory muscles Cardio: Rate: tachycardic GI: Inspection: No distended Palpation (GI): Soft to palpation and nontender Neuro: General: patient oriented x3, moves all extremities and CN's II-XI intact bilaterally Extrem: Other: RLE with swelling and mild erythema Objective Data Active Medications Acetaminophen (Acetaminophen 325 Mg Tablet) 650 mg PO Q6H PRN PRN Reason: Pain, Mild (Pain Scale 1-3) Last Admin: 07/10/23 05:49 Dose: 650 mg Documented By: GUILLERMO Albuterol Sulfate (Albuterol Sulfate (0.083%) 2.5 Mg/3 Ml Vial.Neb) 2.5 mg INHALE Q3H PRN PRN Reason: Shortness of Breath/Wheezing Albuterol/Ipratropium (Albuterol/Iprat 2.5/0.5mg 3 Ml Ampul.Neb) 3 ml INHALE RQ4H WHILE AWAKE [facility] Last Admin: 07/11/23 11:11 Dose: 3 ml Documented By: HORACIO Atorvastatin Calcium (Atorvastatin Calcium 20 Mg Tablet) 20 mg PO BEDTIME [facility] Last Admin: 07/10/23 19:54 Dose: 20 mg Documented By: ELIESER Azathioprine (Azathioprine 50 Mg Tablet) 100 mg PO DAILY [facility] Last Admin: 07/11/23 07:55 Dose: 100 mg Documented By: RAÚL Clonazepam (Clonazepam 1 Mg Tablet) 1 mg PO BID PRN PRN Reason: Anxiety Last Admin: 07/10/23 22:02 Dose: 1 mg Documented By: ELIESER Diltiazem HCl (Diltiazem Hcl Cd 180 Mg Cap.Er.24h) 360 mg PO DAILY [facility]; Protocol Last Admin: 07/11/23 07:53 Dose: 360 mg Documented By: RAÚL Docusate Sodium (Docusate Sodium 100 Mg Capsule) 100 mg PO BID PRN PRN Reason: constipation Folic Acid (Folic Acid 1 Mg Tablet) 1 mg PO DAILY [facility] Last Admin: 07/11/23 07:53 Dose: 1 mg Documented By: RAÚL Furosemide (Furosemide 40 Mg Tablet) 40 mg PO DAILY [facility]; Protocol Last Admin: 07/11/23 07:55 Dose: 40 mg Documented By: RAÚL Gabapentin (Gabapentin 300 Mg Capsule) 300 mg PO BID [facility] Last Admin: 07/11/23 07:55 Dose: 300 mg Documented By: RAÚL Glucose (Glucose Gel 15 Gm Gel..Gram.) 15 gm PO Q15M PRN; Protocol PRN Reason: per Hypoglycemia Standing Ord. Heparin Sodium (Porcine) (Heparin Sodium,Porcine 5,000 Unit/Ml Vial) 5,000 unit SUBCUT Q12H [facility] Last Admin: 07/11/23 11:40 Dose: 5,000 unit Documented By: RAÚL Hydralazine HCl (Hydralazine Hcl 25 Mg Tablet) 25 mg PO TIDWM [facility]; Protocol Last Admin: 07/11/23 11:40 Dose: 25 mg Documented By: RAÚL Dextrose (D10) 250 mls @ 750 mls/hr IV Q15M PRN; Protocol PRN Reason: per Hypoglycemia Standing Ord. Insulin Glargine (Insulin Glargine,Hum.Rec.Anlog 100 Unit/Ml 10 Ml Vial) 45 unit SUBCUT BEDTIME [facility] Last Admin: 07/10/23 19:54 Dose: 45 unit Documented By: ELIESER Insulin Human Lispro (Insulin Lispro 100 Unit/Ml 3 Ml Vial) 0 unit SUBCUT QIDACHS [facility]; Protocol Last Admin: 07/11/23 11:40 Dose: 8 unit Documented By: RAÚL Lamotrigine (Lamotrigine 25 Mg Tablet) 150 mg PO BID [facility] Last Admin: 07/11/23 07:53 Dose: 150 mg Documented By: RAÚL Loratadine (Loratadine 10 Mg Tablet) 10 mg PO DAILY [facility] Last Admin: 07/11/23 07:53 Dose: 10 mg Documented By: RAÚL Metformin HCl (Metformin Hcl Er 500 Mg Tab.Er.24h) 500 mg PO DAILY [facility] Last Admin: 07/11/23 07:56 Dose: 500 mg Documented By: RAÚL Methadone HCl (Methadone Hcl 20 Mg/2 Ml Oral.Conc) 50 mg PO DAILY [facility] Last Admin: 07/11/23 07:52 Dose: 50 mg Documented By: RAÚL Methylprednisolone Sodium Succinate (Methylprednisolone Sod Succ 40 Mg/Ml Vial) 40 mg IVPUSH Q12H [facility] Montelukast Sodium (Montelukast Sodium 10 Mg Tablet) 10 mg PO BEDTIME [facility] Last Admin: 07/10/23 19:54 Dose: 10 mg Documented By: ELIESER Omeprazole (Omeprazole 40 Mg Capsule.Dr) 40 mg PO DAILY@0630 [facility] Last Admin: 07/11/23 04:58 Dose: 40 mg Documented By: ELIESER Ondansetron HCl (Ondansetron Hcl 4 Mg/2 Ml Vial) 4 mg IVPUSH Q8H PRN PRN Reason: Nausea and Vomiting Polyethylene Glycol (Polyethylene Glycol 3350 17 Gm Powd.Pack) 17 gm PO DAILY [facility] Last Admin: 07/11/23 07:56 Dose: 17 gm Documented By: RAÚL Roflumilast (Roflumilast 500 Mcg Tablet) 500 mcg PO DAILY [facility] Last Admin: 07/11/23 07:55 Dose: 500 mcg Documented By: RAÚL Sodium Chloride (0.9 % Sodium Chloride Flush 3 Ml Syringe) 3 ml IVFLUSH QSHIFT [facility] Last Admin: 07/11/23 08:02 Dose: 3 ml Documented By: RAÚL Tiotropium [place] (Tiotropium [place] 2.5 Mcg 1 Puff/2.5 Mcg Mist.Inhal) 2 puff INHALE RDAILY [facility] Last Admin: 07/11/23 07:38 Dose: 2 puff Documented By: HORACIO Zolpidem Tartrate (Zolpidem Tartrate 5 Mg Tablet) 5 mg PO BEDTIME PRN PRN Reason: Sleep Labs 07/10/23 08:41 07/10/23 13:54 Labs: Laboratory Results - last 24 hr 07/10/23 07/10/23 07/11/23 17:43 19:28 07:18 POC Glucose 288 H 297 H 354 H* 07/11/23 11:13 POC Glucose 308 H Microbiology Microbiology Results: Microbiology 07/09/23 09:30 Blood Culture - Preliminary Blood - Venous No growth after 48 hours. 07/09/23 09:18 Blood Culture - Preliminary Blood - Venous No growth after 48 hours. Assessment and Plan (1) Acute and chronic respiratory failure with hypercapnia: Status: Acute Plan 53-year-old female with pertinent history of chronic hypoxemic hypercapnic respiratory failure due to asthma-COPD overlap syndrome/OHS on 2 L baseline supplemental oxygen and nocturnal BiPAP, insulin-dependent diabetes mellitus, essential hypertension, mixed hyperlipidemia, opioid dependence on methadone, mood disorder who presents to the emergency department for evaluation of dyspnea. Acute respiratory distress on chronic hypoxemic hypercarbic respiratory failure due to exacerbation of asthma-COPD overlap syndrome baseline supplemental oxygen, uses 2 L at baseline. wean steroids Scheduled and p.r.n. DuoNebs. Continue home inhalers. Continue nocturnal BiPAP. Right leg edema no cellulitis or infection Had similar presentation last month, venous doppler us neg for dvt 06/05/23; repeat negative 07/09 SEUN stocking for compression keep leg elevated Blood cultures negative to date ID consult pending Hyperkalemia resolved without intervention Insulin-dependent diabetes mellitus with hyperglycemia Hyperglycemia due to steroid use Continue Lantus, sliding scale on metformin ada diet Essential hypertension Continue home antihypertensives Mixed hyperlipidemia On statin Opioid dependence on methadone Mood disorder continue home mood stabilizers Morbid obesity Discussed importance of weight management as this may be contributing to worsening of other comorbidities Congestive heart failure with preserved ejection fraction No exacerbation Continue home Lasix Gastroesophageal reflux disease On PPI DVT prophylaxis: heparin Full code Requires ongoing inpatient stay for IV steroids, scheduled frequent bronchodilator therapy, close monitoring of respiratory status in a patient with frequent hospitalization due to exacerbation of obstructive lung disease and high risk for decompensation (as above), which is not possible in a lesser acute setting. Quality Stroke Does the patient have a stroke diagnosis?: No VTE Prior VTE?: No VTE Risk Level:: Medical - moderate - high VTE Device Contraindication: Treatment Not Indicated VTE Drug Contraindication: N/A - Med Ordered
--- NOTE | 2023-07-11 15:18 | MHC.CM.PN ---
EMR REVIEWED AND PER MD ROUNDS, PT IS NOT MEDICALLY CLEARED FOR DC (IV STEROIDS) UPDATES SENT TO [facility] . CM WILL CONTINUE TO FOLLOW FOR ANY CHANGE IN DC PLAN
[2023-07-11 16:10] LABS: Glucose, Whole Blood 318 mg/dL (60-115)
--- NOTE | 2023-07-11 16:26 | W.PM.IDCN ---
History of Present Illness Data of Consult Service Date: 07/10/23 Requesting physician: China Brito Primary Care Provider: Kelli Benavides MD HPI Reason for consult: cough,RLE redness She presents with cough for two days and RLE redness. She has no fever or chills. She says RLE is itchy as well as red for two days. Review of Systems Review of Systems: Yes all other systems are reviewed and are negative PMFSH Past Medical History Medical History Type 2 diabetes mellitus Opioid dependence Constipation Salmonella gastroenteritis CHITO (obstructive sleep apnea) Obesity with alveolar hypoventilation Congestive heart failure Chronic constipation Acute respiratory failure Hypertensive cardiovascular disease Pulmonary nodule Chronic respiratory failure Tobacco abuse Asthma-COPD overlap syndrome Hyperlipidemia, unspecified Essential hypertension Chronic respiratory failure Family History Family History Father Diabetes Other Asthma Family history: reviewed and not pertinent Surgical History Surgical History H/O tubal ligation Social History Social History Household Members: Children Household Members Other:: daughter Housing: Apartment Do you presently have visiting nurse or other home services: Yes ([employer]) Unable to assess alcohol history related to: Unknown Alcohol intake: never Comment: patient refusing bed alarm Patient Tobacco Use Status: Never used Tobacco Tobacco use type: Cigarette Cigarettes Per Day: 1 Years Smoked: 35 e-Cigarette/Vaping Use: Currently Using Second Hand Smoke Exposure: No Substance Use Type: Opiates Advance Directives Date on File: 06/12/21 service: No Current occupational status: unemployed and disabled Meds Allergies Allergy/AdvReac Type Severity Reaction Status Date / Time No Known Allergies Allergy Verified 07/09/23 08:43 [No Known Allergies*] Active Medications: Current Medications Acetaminophen (Acetaminophen 325 Mg Tablet) 650 mg PO Q6H PRN PRN Reason: Pain, Mild (Pain Scale 1-3) Last Admin: 07/10/23 05:49 Dose: 650 mg Albuterol Sulfate (Albuterol Sulfate (0.083%) 2.5 Mg/3 Ml Vial.Neb) 2.5 mg INHALE Q3H PRN PRN Reason: Shortness of Breath/Wheezing Albuterol/Ipratropium (Albuterol/Iprat 2.5/0.5mg 3 Ml Ampul.Neb) 3 ml INHALE RQ4H WHILE AWAKE [facility] Last Admin: 07/11/23 16:15 Dose: 3 ml Atorvastatin Calcium (Atorvastatin Calcium 20 Mg Tablet) 20 mg PO BEDTIME ANA Last Admin: 07/10/23 19:54 Dose: 20 mg Azathioprine (Azathioprine 50 Mg Tablet) 100 mg PO DAILY ANA Last Admin: 07/11/23 07:55 Dose: 100 mg Clonazepam (Clonazepam 1 Mg Tablet) 1 mg PO BID PRN PRN Reason: Anxiety Last Admin: 07/10/23 22:02 Dose: 1 mg Diltiazem HCl (Diltiazem Hcl Cd 180 Mg Cap.Er.24h) 360 mg PO DAILY [facility]; Protocol Last Admin: 07/11/23 07:53 Dose: 360 mg Docusate Sodium (Docusate Sodium 100 Mg Capsule) 100 mg PO BID PRN PRN Reason: constipation Folic Acid (Folic Acid 1 Mg Tablet) 1 mg PO DAILY [facility] Last Admin: 07/11/23 07:53 Dose: 1 mg Furosemide (Furosemide 40 Mg Tablet) 40 mg PO DAILY ANA; Protocol Last Admin: 07/11/23 07:55 Dose: 40 mg Gabapentin (Gabapentin 300 Mg Capsule) 300 mg PO BID [facility] Last Admin: 07/11/23 07:55 Dose: 300 mg Glucose (Glucose Gel 15 Gm Gel..Gram.) 15 gm PO Q15M PRN; Protocol PRN Reason: per Hypoglycemia Standing Ord. Heparin Sodium (Porcine) (Heparin Sodium,Porcine 5,000 Unit/Ml Vial) 5,000 unit SUBCUT Q12H [facility] Last Admin: 07/11/23 11:40 Dose: 5,000 unit Hydralazine HCl (Hydralazine Hcl 25 Mg Tablet) 25 mg PO TIDWM [facility]; Protocol Last Admin: 07/11/23 16:05 Dose: 25 mg Dextrose (D10) 250 mls @ 750 mls/hr IV Q15M PRN; Protocol PRN Reason: per Hypoglycemia Standing Ord. Insulin Glargine (Insulin Glargine,Hum.Rec.Anlog 100 Unit/Ml 10 Ml Vial) 45 unit SUBCUT BEDTIME [facility] Last Admin: 07/10/23 19:54 Dose: 45 unit Insulin Human Lispro (Insulin Lispro 100 Unit/Ml 3 Ml Vial) 0 unit SUBCUT QIDACHS [facility]; Protocol Last Admin: 07/11/23 11:40 Dose: 8 unit Lamotrigine (Lamotrigine 25 Mg Tablet) 150 mg PO BID [facility] Last Admin: 07/11/23 07:53 Dose: 150 mg Loratadine (Loratadine 10 Mg Tablet) 10 mg PO DAILY [facility] Last Admin: 07/11/23 07:53 Dose: 10 mg Metformin HCl (Metformin Hcl Er 500 Mg Tab.Er.24h) 500 mg PO DAILY [facility] Last Admin: 07/11/23 07:56 Dose: 500 mg Methadone HCl (Methadone Hcl 20 Mg/2 Ml Oral.Conc) 50 mg PO DAILY [facility] Last Admin: 07/11/23 07:52 Dose: 50 mg Methylprednisolone Sodium Succinate (Methylprednisolone Sod Succ 40 Mg/Ml Vial) 40 mg IVPUSH Q12H [facility] Last Admin: 07/11/23 16:06 Dose: 40 mg Montelukast Sodium (Montelukast Sodium 10 Mg Tablet) 10 mg PO BEDTIME [facility] Last Admin: 07/10/23 19:54 Dose: 10 mg Omeprazole (Omeprazole 40 Mg Capsule.Dr) 40 mg PO DAILY@0630 [facility] Last Admin: 07/11/23 04:58 Dose: 40 mg Ondansetron HCl (Ondansetron Hcl 4 Mg/2 Ml Vial) 4 mg IVPUSH Q8H PRN PRN Reason: Nausea and Vomiting Polyethylene Glycol (Polyethylene Glycol 3350 17 Gm Powd.Pack) 17 gm PO DAILY [facility] Last Admin: 07/11/23 07:56 Dose: 17 gm Roflumilast (Roflumilast 500 Mcg Tablet) 500 mcg PO DAILY [facility] Last Admin: 07/11/23 07:55 Dose: 500 mcg Sodium Chloride (0.9 % Sodium Chloride Flush 3 Ml Syringe) 3 ml IVFLUSH QSHIFT [facility] Last Admin: 07/11/23 16:03 Dose: 3 ml Tiotropium Conway (Tiotropium [place] 2.5 Mcg 1 Puff/2.5 Mcg Mist.Inhal) 2 puff INHALE RDAILY [facility] Last Admin: 07/11/23 07:38 Dose: 2 puff Zolpidem Tartrate (Zolpidem Tartrate 5 Mg Tablet) 5 mg PO BEDTIME PRN PRN Reason: Sleep Home Medications ?Medication ?Instructions ?Recorded ?Confirmed ?Last Taken ?Type loratadine 10 mg tablet (Claritin) 10 mg PO DAILY 12/30/19 07/09/23 05/18/23 History montelukast 10 mg tablet 10 mg PO BEDTIME 12/30/19 07/09/23 05/18/23 History diltiazem HCl 360 mg capsule,24 360 mg PO DAILY 11/16/20 07/09/23 05/18/23 History hr,extended release (Tiadylt ER) roflumilast 500 mcg tablet 500 mcg PO DAILY 11/16/20 07/09/23 05/18/23 History (Daliresp) rosuvastatin 5 mg tablet 5 mg PO BEDTIME 11/16/20 07/09/23 05/18/23 History metformin 500 mg tablet,extended 500 mg PO DAILY 05/18/21 07/09/23 05/18/23 History release 24 hr methadone 10 mg/mL oral concentrate 50 mg PO DAILY 06/06/21 07/10/23 07/09/23 History hydralazine 25 mg tablet 25 mg PO TIDWM 11/02/21 07/09/23 05/18/23 History insulin lispro 100 unit/mL 4 unit subcut TIDAC PRN 11/02/21 07/09/23 05/18/23 History subcutaneous solution Hyperglycemia clonazepam 1 mg tablet 1 mg PO BID PRN Anxiety 06/28/22 07/09/23 Unknown History lamotrigine 150 mg tablet 150 mg PO BID 07/29/22 07/09/23 05/18/23 History calcitonin (salmon) 200 1 spray intranasal DAILY 09/30/22 07/09/23 05/18/23 History unit/actuation nasal spray insulin glargine 100 unit/mL 45 unit subcut BEDTIME 09/30/22 07/09/23 05/18/23 History subcutaneous solution (Lantus U-100 Insulin) docusate sodium 100 mg capsule 100 mg PO BID PRN constipation 10/20/22 07/09/23 Unknown History nebulizers 11/08/22 04/08/23 02/02/23 09:00 History polyethylene glycol 3350 17 17 g PO DAILY constipation 12/21/22 07/09/23 02/20/23 History gram/dose oral powder (Miralax) ammonium lactate 12 % lotion 1 appl topical DAILY Rash 02/02/23 07/09/23 05/18/23 History diclofenac sodium 1 % topical gel 4 g topical QID PRN Pain 05/04/23 07/09/23 Unknown History zolpidem 5 mg tablet 5 mg PO BEDTIME PRN Sleep 05/04/23 07/09/23 Unknown History cholecalciferol (vitamin D3) 1,250 1,250 mcg PO MOTH 05/19/23 07/09/23 Unknown History mcg (50,000 unit) capsule lidocaine 5 % topical patch 1 patch topical QAM PRN Pain 05/19/23 07/09/23 Unknown History azathioprine 50 mg tablet 100 mg PO DAILY 06/24/23 07/09/23 Unknown History Physical Exam Vital Signs: Vital Signs: Last Vital Signs Temp 97.2 F 07/11/23 15:24 Pulse 104 H 07/11/23 16:03 Resp 20 07/11/23 16:03 BP 140/104 H 07/11/23 16:05 Pulse Ox 96 07/11/23 15:24 O2 Del Method Nasal Cannula 07/11/23 15:24 O2 Flow Rate 2 07/11/23 15:24 FiO2 30 07/09/23 17:12 Oxygen Flow Rate 2 07/09/23 08:40 BMI result Body Mass Index 42.7 Const: General: cooperative HEENT: Head: Yes normal to inspection Face and sinus: Yes normal facial exam Mouth: Normal oral and palatal mucosa present Teeth and gingiva: dentition normal Eyes: General: appearance normal, both eyes and all related structures Pupils: Equal, round and reactive pupils present Resp: Effort & Inspection: normal respiratory effort Cardio: Rate: regular rate Rhythm: regular rhythm GI: Palpation (GI): Soft to palpation and nontender : General: Yes no CVA tenderness Back/Spine/Pelvis: Back: no CVA tenderness Skin: General skin exam: no rashes or lesions noted Neuro: General: moves all extremities Cranial nerves: Yes Equal, round and reactive pupils present Extrem: General: Yes normal to inspection Psych: Appearance: grossly normal Results Labs 07/10/23 08:41 07/10/23 13:54 Microbiology Microbiology Results: Microbiology 07/09/23 09:30 Blood - Venous Blood Culture - Preliminary No growth after 48 hours. 07/09/23 09:18 Blood - Venous Blood Culture - Preliminary No growth after 48 hours. Assessment and Plan (1) Cellulitis: Qualifiers: Laterality: left Site of cellulitis: extremity Site of cellulitis of extremity: lower extremity Qualified Code(s): L03.116 - Cellulitis of left lower limb Status: Acute (2) Left leg swelling: Status: Acute (3) Asthma exacerbation: Status: Acute Plan Cellulitis and cough have resolved. There if no fever or bacteremia and leukocytosis likely reflects steroid use. Would not give antibiotics at this time.
[2023-07-11] MEDS: Insulin Glargine,Hum.rec.anlog 100 UNIT/ML 10 ML VIAL 45 UNIT SUBCUT (20:25)
[2023-07-11] MEDS: Atorvastatin Calcium 20 MG TABLET PO (20:25)
[2023-07-11] MEDS: Montelukast Sodium 10 MG TABLET PO (20:25)
[2023-07-11 20:29] LABS: Glucose, Whole Blood 278 mg/dL (60-115)
[2023-07-11] MEDS: clonazePAM 1 MG TABLET PO (23:07)
[2023-07-12] VITALS (10 sets, daily range): BP systolic 147–166; BP diastolic 65–80; PULSE 89–115; RESP 17–21; TEMP 36.1–36.7; O2SAT 92–99
[2023-07-12] MEDS: Albuterol/Iprat 2.5/0.5MG 3 ML AMPUL.NEB INHALE ×3 (01:03→11:10)
[2023-07-12] MEDS: methylPREDNISolone Sod Succ 40 MG/ML VIAL IVPUSH (05:21)
[2023-07-12] MEDS: Omeprazole 40 MG CAPSULE.DR PO (05:21)
[2023-07-12 07:47] LABS: Glucose, Whole Blood 310 mg/dL (60-115)
[2023-07-12] MEDS: Tiotropium Bromide 2.5 mcg 1 PUFF/2.5 MCG MIST.INHAL 2 PUFF INHALE (07:56)
[2023-07-12] MEDS: methADONE HCl 20 MG/2 ML ORAL.CONC 50 MG PO (07:56)
[2023-07-12] MEDS: polyethylene glycoL 3350 17 GM POWD.PACK PO (07:56)
[2023-07-12] MEDS: 0.9 % Sodium Chloride Flush 3 ML SYRINGE IVFLUSH (07:57)
[2023-07-12] MEDS: Insulin Lispro 100 UNIT/ML 3 ML VIAL SUBCUT ×2 (07:57→11:16)
[2023-07-12] MEDS: metFORMIN HCl ER 500 MG TAB.ER.24H PO (08:00)
[2023-07-12] MEDS: Gabapentin 300 MG CAPSULE PO (08:00)
[2023-07-12] MEDS: dilTIAZem HCL CD 180 MG CAP.ER.24H 360 MG PO (08:00)
[2023-07-12] MEDS: hydrALAZINE HCl 25 MG TABLET PO ×2 (08:00→11:17)
[2023-07-12] MEDS: Roflumilast 500 MCG TABLET PO (08:00)
[2023-07-12] MEDS: Furosemide 40 MG TABLET PO (08:00)
[2023-07-12] MEDS: Loratadine 10 MG TABLET PO (08:01)
[2023-07-12] MEDS: lamoTRIgine 25 MG TABLET 150 MG PO (08:01)
[2023-07-12] MEDS: Folic Acid 1 MG TABLET PO (08:01)
[2023-07-12] MEDS: azaTHIOprine 50 MG TABLET 100 MG PO (08:01)
--- NOTE | 2023-07-12 09:23 | PM.DS ---
DS: Providers Provider Date of Service: 07/12/23 Date of admission: 07/09/23 11:55 Primary care physician: Kelli Benavides MD Consults: 07/09/23 11:58 Consult to Infectious Diseases Routine Consulting Provider: [facility] Infectious Disease Reason for consultation: cellulitis DS: Diagnosis Discharge Diagnosis (1) Cellulitis: Status: Acute (2) Left leg swelling: Status: Acute (3) Asthma exacerbation: Status: Acute DS: Summary Hospital Course Hospital Course: 53 yo female well known to hospitalist team with PMH of end stage asthma and COPD on home O2 and Bipap use, chronic methadone use, obesity, DM, CHITO, HLD, chronic respiratory failure, notes she started to cough yesterday no fevers, no sputum production did her Bipap and inhalers and started to feel better. She notes she had some nausea, chills and noted her right leg which is chronically swollen now is red and hot to touch starting yesterday. She denied fever, open wounds or weeping areas. She was placed on BiPAP in the ER and does feel better. Chest x-ray negative for consolidation or effusion. All labs within acceptable limits, vital signs stable. Will admit patient for acute on chronic hypoxic and hypercarbic respiratory failure. 53-year-old woman treated for acute respiratory distress on chronic hypoxemic hypercarbic respiratory failure secondary to asthma/COPD overlap syndrome exacerbation. She was treated with baseline oxygen of 2 L, IV Solu-Medrol, scheduled and p.r.n. DuoNebs. Her home inhalers were continued. She was treated with nocturnal BiPAP. She has significantly improved and will be discharged on a short prednisone taper. So had some complaints of right leg edema with no cellulitis or infection noted had similar presentation 1 month ago, venous Doppler ultrasound was negative for DVT. Seamus stockings ordered. Patient should keep legs elevated. Blood cultures have remained negative to date. Plan is to discharge patient home and she is in agreement. Hyperkalemia. Resolved without intervention Diabetes mellitus type 2 with hyperglycemia. Secondary to steroid use. Continue home medications Hypertension. Stable blood pressure. Continue home antihypertensives Hyperlipidemia. On statin Mental health. Continue home mood stabilizers Morbid obesity. Discussed importance of weight management as this may be contributing to worsening of other comorbidities GERD. Continue PPI History of congestive heart failure with preserved ejection fraction. No exacerbation during hospitalization. Continue Lasix Opiate dependence. On methadone. Last dose of methadone 07/12/2023 at 07:56. Discharge summary and discharge orders faxed [phone] to allow for dose for tomorrow to be picked up today as clinic is closed on for 11/04/2023. Time Attestation Discharge Coordination Time (in mins): 40 Quality: Safe Use of Opioids Does Pt have an Active Cancer Diagnosis on the Problem List?: No Quality: Stroke Does the patient have a stroke diagnosis?: No Physical Exam Vital Signs: Vital Signs: Last Vital Signs Temp 97 F 07/12/23 07:29 Pulse 90 07/12/23 08:00 Resp 18 07/12/23 07:59 BP 166/80 H 07/12/23 08:00 Pulse Ox 97 07/12/23 07:29 O2 Del Method BiPAP 07/12/23 07:29 O2 Flow Rate 2 07/11/23 15:24 FiO2 30 07/09/23 17:12 Oxygen Flow Rate 2 07/09/23 08:40 BMI result Body Mass Index 42.7 Appearing in no acute distress head is normocephalic atraumatic eyes pupils are PERRLA sclera is anicteric mouth throat mucous membranes are intact and moist neck is supple no lymphadenopathy, no JVD noted lung sounds diminished throughout heart regular rate rhythm, clear S1, S2 positive bowel sounds, abdomen is soft, nontender neuro patient is alert x3, no focal deficits Chronic edema to right lower extremity likely positional DS: Data Data Completed and Pending Completed studies during hospitalization [Text1]: Procedures Assistance with Respiratory Ventilation, 24-96 Consecutive Hours, Continuous Positive Airway Pressure (02/21/23) Assistance with Respiratory Ventilation, Less than 24 Consecutive Hours, Continuous Positive Airway Pressure (06/24/23) Insertion of Endotracheal Airway into Trachea, Via Natural or Artificial Opening (12/21/22) Insertion of Infusion Device into Right Atrium, Percutaneous Approach (12/21/21) Insertion of Infusion Device into Right Brachial Vein, Percutaneous Approach (07/28/22) Insertion of Infusion Device into Superior Vena Cava, Percutaneous Approach (12/21/22) Insertion of Infusion Device into Upper Vein, Percutaneous Approach (02/21/23) Introduction of Vasopressor into Peripheral Vein, Percutaneous Approach (12/21/21) Respiratory Ventilation, 24-96 Consecutive Hours (12/21/22) Ultrasonography of Superior Vena Cava, Guidance (12/21/22) Labs on day of discharge: Laboratory Results - last 24 hr 07/11/23 07/11/23 07/11/23 11:13 16:06 20:18 POC Glucose 308 H 318 H 278 H 07/12/23 07:27 POC Glucose 310 H Preliminary micro results at discharge 07/09/23 09:30 Blood Culture - Preliminary Blood - Venous No growth after 48 hours. 07/09/23 09:18 Blood Culture - Preliminary Blood - Venous No growth after 48 hours. Discharge Plan Discharge Anticipated Discharge Date/Time: 07/12/23 09:15 Patient Disposition: Home Health Service Discharge Diagnosis: Acute respiratory distress on chronic hypoxemic hypercarbic respiratory failure Asthma/COPD overlap syndrome Right leg edema Hyperkalemia Referrals: Kelli Benavides MD [Primary Care Provider] - 1 Week Discharge Medications: New prednisone 10 mg tablet See Taper PO DIRECTED Qty: 20 0RF Taper: Prednisone 40 mg daily for 2 Days and 0 Hour 30 mg daily for 2 Days and 0 Hour 20 mg daily for 2 Days and 0 Hour 10 mg daily for 2 Days and 0 Hour Rx Instructions: see taper instructions Continued gabapentin 300 mg capsule 300 mg PO BID Qty: 60 11RF albuterol sulfate [ProAir HFA] 90 mcg/actuation HFA aerosol inhaler 2 puff inhalation Q4H PRN (Reason: Shortness Of Breath Or Wheezing) Qty: 1 0RF omeprazole 40 mg capsule,delayed release(DR/EC) 40 mg PO DAILY@0630 30 Days Qty: 30 6RF furosemide 20 mg tablet 40 mg PO DAILY 90 Days Qty: 180 0RF ipratropium-albuterol 0.5 mg-3 mg(2.5 mg base)/3 mL solution for nebulization 3 ml PO Q4H PRN (Reason: for wheezing) Qty: 540 6RF diltiazem HCl [Tiadylt ER] 360 mg capsule,extended release 24 hr 360 mg PO DAILY rosuvastatin 5 mg tablet 5 mg PO BEDTIME roflumilast [Daliresp] 500 mcg tablet 500 mcg PO DAILY metformin 500 mg tablet extended release 24 hr 500 mg PO DAILY hydralazine 25 mg tablet 25 mg PO TIDWM insulin lispro 100 unit/mL solution 4 unit subcut TIDAC PRN (Reason: Hyperglycemia) Rx Instructions: per sliding scale methadone 10 mg/mL Concentrate 50 mg PO DAILY Patient Comments: [facility] lamotrigine 150 mg tablet 150 mg PO BID calcitonin (salmon) 200 unit/actuation spray,non-aerosol 1 spray intranasal DAILY Rx Instructions: one nostril every day, alternate sides. insulin glargine [Lantus U-100 Insulin] 100 unit/mL solution 45 unit subcut BEDTIME docusate sodium 100 mg capsule 100 mg PO BID PRN (Reason: constipation) clonazepam 1 mg tablet 1 mg PO BID PRN (Reason: Anxiety) polyethylene glycol 3350 [Miralax] 17 gram/dose powder 17 g PO DAILY ammonium lactate 12 % lotion 1 appl topical DAILY zolpidem 5 mg tablet 5 mg PO BEDTIME PRN (Reason: Sleep) Rx Instructions: use with 100% BIPAP compliance only diclofenac sodium 1 % gel 4 g TOPICAL QID PRN (Reason: Pain) cholecalciferol (vitamin D3) 1,250 mcg (50,000 unit) capsule 1,250 mcg PO MOTH lidocaine 5 % adhesive patch,medicated 1 patch topical QAM PRN (Reason: Pain) azathioprine 50 mg tablet 100 mg PO DAILY prednisone 20 mg tablet 40 mg PO DAILY 5 Days Qty: 10 0RF montelukast 10 mg tablet 10 mg PO BEDTIME loratadine [Claritin] 10 mg tablet 10 mg PO DAILY (DME) compress.stocking,knee,reg,med Misc See Rx Instructions .Route Qty: 2 0RF Rx Instructions: 15-20 cm arformoterol [Brovana] 15 mcg/2 mL solution for nebulization 2 ml inhalation Q12H 30 Days Qty: 120 11RF budesonide 0.5 mg/2 mL suspension for nebulization 0.5 mg inhalation BID Qty: 120 11RF tiotropium bromide [Spiriva with HandiHaler] 18 mcg capsule, w/inhalation device 1 cap inhalation DAILY Qty: 30 11RF (DME) nebulizers Misc See Rx Instructions .ROUTE Rx Instructions: As directed folic acid 1 mg tablet 1 mg PO DAILY 30 Days Qty: 30 6RF Discharge Orders: Discharge Order (Routine); Ordered 07/12/23 Ordered By: China Brito Diet: Advance to usual diet Activity on Discharge: As tolerated Stand Alone Forms: Patient Portal Discharge page Print Language: Singaporean Care Plan Goals: Last methadone dose for 10/04/2023 at 07:56 Health Concerns: Acute respiratory distress on chronic hypoxemic hypercarbic respiratory failure Asthma/COPD overlap syndrome Right leg edema Hyperkalemia Plan of Treatment: Follow-up with primary care provider as needed Take all medications as prescribed Assessment: Discharge summary see discharge summary
[2023-07-12 11:03] LABS: Glucose, Whole Blood 357 mg/dL (60-115)
[2023-07-12] MEDS: Heparin Sodium,Porcine 5,000 UNIT/ML VIAL 5000 UNIT SUBCUT (11:17)
[2023-07-12 11:22] LABS: Glucose, Whole Blood 317 mg/dL (60-115)
== END 2023-07-12 13:04 | disposition home health service (06) | DRG 140 ==
LOC: HO.ED 11:05 → HO.EDOVER 12:00 → HO.S3 07-10 14:21
PROVIDERS: Physician Assistant Medical; Admitting Provider Nurse Practitioner Acute Care; Emergency Provider Emergency Medicine; PCP Family Medicine; Visit Provider Nurse Practitioner Acute Care
DX: J44.1 Chronic obstructive pulmonary disease with (acute) exacerbation (principal); J96.21 Acute and chronic respiratory failure with hypoxia; I50.32 Chronic diastolic (congestive) heart failure; E66.2 Morbid (severe) obesity with alveolar hypoventilation; L03.116 Cellulitis of left lower limb; J45.901 Unspecified asthma with (acute) exacerbation; Z99.81 Dependence on supplemental oxygen; J96.22 Acute and chronic respiratory failure with hypercapnia; E11.65 Type 2 diabetes mellitus with hyperglycemia; F11.20 Opioid dependence, uncomplicated; Z68.41 Body mass index [BMI] 40.0-44.9, adult; E78.2 Mixed hyperlipidemia; Z20.822 Contact with and (suspected) exposure to COVID-19; Z79.4 Long term (current) use of insulin; Z79.52 Long term (current) use of systemic steroids; Z79.84 Long term (current) use of oral hypoglycemic drugs; Z79.899 Other long term (current) drug therapy
CPT/HCPCS: 0241U; 36415; 71046; 80053; 82803; 82947; 83605; 83735; 83880; 84132; 85025; 87040; 93005; 93971; 94640; 94660; 99221; 99285; J1644; J2405; J2543; J2919

== ENCOUNTER → 2023-07-09 08:49 | Outpatient (BNV) | payer MEDICAID, SELFPAY | PROVIDERS: Admitting Provider Nurse Practitioner Acute Care; Emergency Provider Emergency Medicine; PCP Family Medicine; Visit Provider Internal Medicine Cardiovascular Disease | DX: R00.0 Tachycardia, unspecified (principal); I45.10 Unspecified right bundle-branch block | CPT/HCPCS: 93010 ==

== ENCOUNTER → 2023-07-09 11:55 | Outpatient (BNV) | payer MEDICAID, SELFPAY | PROVIDERS: Admitting Provider Nurse Practitioner Acute Care; Emergency Provider Emergency Medicine; PCP Family Medicine; Visit Provider Nurse Practitioner Acute Care | DX: J96.22 Acute and chronic respiratory failure with hypercapnia (principal) | CPT/HCPCS: 99223; 99232; 99233; 99239 ==

== ENCOUNTER → 2023-07-09 11:55 | Outpatient (BNV) | payer MEDICAID, SELFPAY | PROVIDERS: Admitting Provider Nurse Practitioner Acute Care; Emergency Provider Emergency Medicine; PCP Family Medicine; Visit Provider Internal Medicine | DX: L03.116 Cellulitis of left lower limb (principal); M79.89 Other specified soft tissue disorders; J45.901 Unspecified asthma with (acute) exacerbation | CPT/HCPCS: 99222 ==

== ENCOUNTER 2023-07-16 10:21 | Inpatient (IN) | payer MEDICAID, SELFPAY ==
[2023-07-16] VITALS (28 sets, daily range): BP systolic 96–165; BP diastolic 58–88; PULSE 77–130; RESP 14–111; TEMP 31–37.3; O2SAT 65–100; BMI 43.2; BMI 40.1
--- NOTE | ~2023-07-16 | XR_ITS ---
EXAMINATION: XR CHEST CLINICAL INFORMATION: Dyspnea COMPARISON: 07/21/2023 TECHNIQUE: Frontal view of the chest was obtained. FINDINGS: A few EKG wires overlie the chest. Lungs are well expanded. Bronchial sena appear to be diffusely thickened. No acute findings. Linear opacity of atelectasis at the left lung base. No overt pulmonary consolidation. No pleural effusion or pneumothorax. Cardiac silhouette is normal size. The pulmonary vascular pattern is normal. Multiple old bilateral rib fractures. XR/XR chest 1V IMPRESSION: No acute cardiopulmonary findings compared to 07/21/2023.
--- NOTE | ~2023-07-16 | CT_ITS ---
EXAMINATION: CT ANGIOGRAM OF THE CHEST WITH AND WITHOUT CONTRAST (CT PULMONARY ANGIOGRAM FOR PE) CLINICAL INFORMATION: Reason for Exam sob, tachycardia COMPARISON: CTA chest 09/17/2022 TECHNIQUE: Prior to contrast administration, noncontrast localization images were obtained. Subsequently, multidetector volumetric imaging was performed from the thoracic inlet to below the diaphragms following the administration of 65 mL Omnipaque 350 intravenous contrast. No contrast reaction reported Sagittal, coronal, and MIP oblique sagittal reformatted images were obtained on the CT workstation, uploaded to PACS, and reviewed. This CT examination was performed using dose optimization techniques as appropriate, variously including the following: *Automated exposure control *Adjustment of mA and/or kV according to patient size (this includes techniques or standardized protocols for targeted exams where dose is matched to indication/reason for exam; i.e. extremities or head) *Use of iterative reconstruction technique Total exam dose-length product 168 mGy-cm FINDINGS: QUALITY OF STUDY/CONTRAST BOLUS: Satisfactory. PULMONARY ARTERIES: No pulmonary emboli. THORACIC AORTA: No aneurysm. LUNG: Mild centrilobular emphysema. PLEURA: No pleural effusion or pneumothorax. MEDIASTINUM: Normal heart size. No pericardial effusion. No hilar or mediastinal lymphadenopathy. No evidence of septal bowing or right heart strain. CORONARY ARTERY CALCIFICATION: None visualized on this study. CHEST WALL/AXILLA: No axillary or internal mammary lymphadenopathy. OSSEOUS STRUCTURES: Numerous healing bilateral rib fractures. Unchanged T6 and L1 vertebral compression fractures. UPPER ABDOMEN: Unremarkable. No reflux of contrast into the hepatic veins to suggest elevated right heart pressures. CT/CT angio chest PE protocol IMPRESSION: 1. No acute pulmonary embolus. 2. Mild centrilobular emphysema. VTE: negative
--- NOTE | ~2023-07-16 | CT_ITS ---
EXAMINATION: CT HEAD WITHOUT CONTRAST CLINICAL INFORMATION: Encephalopathic. Difficult to arouse. COMPARISON: Previous head CT most recent 05/19/2023 TECHNIQUE: Contiguous axial imaging was performed from the skull base to vertex without intravenous administration of contrast. This CT examination was performed using dose optimization techniques as appropriate, variously including the following: *Automated exposure control *Adjustment of mA and/or kV according to patient size (this includes techniques or standardized protocols for targeted exams where dose is matched to indication/reason for exam; i.e. extremities or head) *Use of iterative reconstruction technique DLP: 150 mGy-cm FINDINGS: Exam is limited due to motion. There is no evidence of an extra-axial collection. There is no evidence of intra or extra-axial hemorrhage. There is prominence of the left quadrigeminal plate cistern. This is similar to previous exams. Ventricles and extra-axial CSF spaces are otherwise appropriate. Tai-white matter differentiation is normal. There is mild nonspecific periventricular white matter disease. No mass, mass effect or infarct. Review of bone windows is normal. No skull fracture. Visualized paranasal sinuses, mastoid air cells and middle ears are clear. CT/CT head/brain wo IV con IMPRESSION: Limited exam due to motion artifact. No acute findings and no change from May 2023 exam.
--- NOTE | ~2023-07-16 | CT_ITS ---
EXAMINATION: CT CHEST WITHOUT CONTRAST CLINICAL INFORMATION: Hypoxic respiratory failure. History of aspergillosis. COMPARISON: Previous chest x-ray from earlier the same day and chest CT most recent December 2022 TECHNIQUE: Multidetector volumetric CT imaging of the chest was done. Axial MIP volume rendering provided. Sagittal and coronal reformatted images were obtained. This CT examination was performed using dose optimization techniques as appropriate, variously including the following: *Automated exposure control *Adjustment of mA and/or kV according to patient size (this includes techniques or standardized protocols for targeted exams where dose is matched to indication/reason for exam; i.e. extremities or head) *Use of iterative reconstruction technique DLP: 475 mGy-cm FINDINGS: LUNGS: There is bronchial wall thickening seen in both lower lobes. There are multiple bilateral lower lobe peribronchial nodular opacities suggestive of bronchopneumonia. There is denser subsegmental atelectasis or small infiltrate at the left lung base. There are clustered peribronchial nodules seen in the bilateral upper lobes and right middle lobe that are new as well. MEDIASTINUM: Upper normal heart size. No pericardial effusion. Normal caliber thoracic aorta. Small mediastinal lymph nodes. No enlarged lymph nodes. CORONARY ARTERY CALCIFICATION: Mild PLEURA: There is no pleural effusion. No pleural mass or thickening. AXILLA: No lymphadenopathy. UPPER ABDOMEN: See abdominal and pelvic CT report from the same day. OSSEOUS STRUCTURES: There are multiple bilateral rib fractures of varying ages. There are T6 and L1 vertebral body compression fractures that do not appear acute. There is also a L1 Schmorl's node. CT/CT chest wo IV con IMPRESSION: Bilateral airways disease and bronchopneumonia, greatest in the lower lobes. Multiple bilateral rib fractures of varying ages. Old appearing compression fractures. Fleischner guidelines were followed.
--- NOTE | ~2023-07-16 | CT_ITS ---
EXAMINATION: CT ABDOMEN AND PELVIS WITHOUT CONTRAST CLINICAL INFORMATION: Distention and nausea COMPARISON: Previous CT of the abdomen and pelvis February 2023 TECHNIQUE: Multidetector volumetric imaging was performed from the superior aspect of the liver through the pubic symphysis. Sagittal and coronal reformatted images were obtained on the technologist's workstation. This CT examination was performed using dose optimization techniques as appropriate, variously including the following: *Automated exposure control *Adjustment of mA and/or kV according to patient size (this includes techniques or standardized protocols for targeted exams where dose is matched to indication/reason for exam; i.e. extremities or head) *Use of iterative reconstruction technique DLP: 1013 mGy-cm FINDINGS: Evaluation of the upper abdomen limited due to motion. LUNG BASES: Bibasilar bronchopneumonia. LIVER, GALLBLADDER, AND BILIARY TREE: The liver is normal in size, shape, and attenuation. No focal hepatic lesion or biliary ductal dilatation is present. The gallbladder is unremarkable with no evidence of radiopaque gallstones, gallbladder wall thickening, or obvious pericholecystic inflammatory changes. PANCREAS: Unremarkable. SPLEEN: Unremarkable. ADRENAL GLANDS: Unremarkable. KIDNEYS AND URETERS: The kidneys are normal in size, shape, and attenuation. No hydronephrosis, hydroureter, or calculi seen. No perinephric stranding. BLADDER: Unremarkable. GASTROINTESTINAL TRACT: Mild diverticulosis of the colon. The small and large bowel are otherwise unremarkable. The appendix is unremarkable. ABDOMINAL WALL: No significant hernia is appreciated. LYMPH NODES: Normal. VASCULAR: Unremarkable. PELVIC VISCERA: Unremarkable. OSSEOUS STRUCTURES: Multiple old appearing lumbar compression fractures. CT/CT abdomen pelvis wo IV con IMPRESSION: Limited due to motion. No acute findings. Fleischner guidelines were followed.
--- NOTE | ~2023-07-16 | XR_ITS ---
EXAMINATION: XR CHEST CLINICAL INFORMATION: Status post intubation. COMPARISON: Prior chest radiographs, most recently 07/16/2023. TECHNIQUE: Frontal views of the chest were obtained. FINDINGS: The heart size is at least top normal. There is atherosclerotic calcification of the aortic knob. Lung volumes are diminished. An endotracheal tube is seen, with tip positioned 4.2 cm superior to the kellen. A nasogastric tube is seen, with tip inferior to the left hemidiaphragm and excluded from the field of view. There is pulmonary vascular congestion, without overt pulmonary edema. Mild bibasilar airspace disease is seen. No pleural effusion or pneumothorax is seen. There is no acute osseous abnormality. XR/XR chest 1V IMPRESSION: 1. There is pulmonary vascular congestion, without overt pulmonary edema. 2. There is mild bibasilar airspace disease. 3. Lung volumes are diminished. 4. Support tubes are positioned as above.
--- NOTE | ~2023-07-16 | XR_ITS ---
EXAMINATION: XR CHEST CLINICAL INFORMATION: Dyspnea. COMPARISON: Chest radiograph 07/16/2023. TECHNIQUE: Frontal view of the chest was obtained. FINDINGS: Decreased bibasilar airspace opacities and decreased interstitial thickening. No new focal consolidation. No significant pleural effusion or pneumothorax. Stable cardiomediastinal silhouette. Redemonstration of bilateral rib fractures of varying ages. XR/XR chest 1V IMPRESSION: Improved pulmonary aeration with decreased bibasilar airspace opacities and decreased interstitial thickening. No new focal consolidation. No significant pleural effusion or pneumothorax.
--- NOTE | ~2023-07-16 | XR_ITS ---
EXAMINATION: XR CHEST CLINICAL INFORMATION: Hypoxia and shortness of breath COMPARISON: 07/09/2023 TECHNIQUE: Frontal view of the chest was obtained. FINDINGS: Moderate cardiomegaly with mild to moderate distention of the pulmonary vessels. Bibasilar edema. There may be trace effusions. Findings appear worse. XR/XR chest 1V IMPRESSION: Congestive changes which appear worse.
--- NOTE | 2023-07-16 10:29 | ECG_ITS ---
Test Reason : SOB Blood Pressure : / mmHG Vent. Rate : 118 BPM Atrial Rate : 118 BPM P-R Int : 140 ms QRS Dur : 104 ms QT Int : 334 ms P-R-T Axes : 048 002 031 degrees QTc Int : 468 ms Sinus tachycardia Incomplete right bundle branch block Minimal voltage criteria for LVH, may be normal variant ( R in aVL ) Abnormal ECG When compared with ECG of 09-JUL-2023 09:34, No significant change was found Referred By: Екатерина Banda Electronically Signed By:RONALD SCHAFER
--- NOTE | 2023-07-16 10:48 | ED.GENADULT ---
HPI - General Adult General Chief complaint: Dyspnea Stated complaint: KASPER,NAUSEA,SOB 78% 2LPM,ON 10LPM NRB PER EMS Time Seen by Provider: 07/16/23 10:29 Source: patient, EMS, RN notes reviewed and old records reviewed Mode of arrival: EMS Limitations: altered mental status History of Present Illness HPI narrative: 53 yo female with history of chronic hypoxic and hypercarbic respiratory failure on 2L NC and BiPAP QHS, CHITO/OHS, aspiration, asthma/COPD overlap syndrome, former smoker who presents to the ER from home via EMS for evaluation of headache and nausea. She was found to be hypoxic to 75% on her baseline 2L NC. She was placed on 10L via NRB and brought to the ER. She is lethargic on arrival. She reports she has been coughing more than usual. She states she is bringing up phlegm. Unable to elaborate further. When asked about her headache she points to the front of her head. She denies falling. She denies vomiting. She denies abdominal pain. MD complaint: headache - hypoxia Onset (ago): unknown Treatments prior to arrival: other (oxygen) Related Data Home Medications ?Medication ?Instructions ?Recorded ?Confirmed loratadine 10 mg tablet (Claritin) 10 mg PO DAILY 12/30/19 07/16/23 montelukast 10 mg tablet 10 mg PO BEDTIME 12/30/19 07/16/23 diltiazem HCl 360 mg capsule,24 360 mg PO DAILY 11/16/20 07/16/23 hr,extended release (Tiadylt ER) roflumilast 500 mcg tablet 500 mcg PO DAILY 11/16/20 07/16/23 (Daliresp) rosuvastatin 5 mg tablet 5 mg PO BEDTIME 11/16/20 07/16/23 metformin 500 mg tablet,extended 500 mg PO DAILY 05/18/21 07/16/23 release 24 hr methadone 10 mg/mL oral concentrate 50 mg PO DAILY 06/06/21 07/16/23 hydralazine 25 mg tablet 25 mg PO TIDWM 11/02/21 07/16/23 insulin lispro 100 unit/mL 4 unit subcut TIDAC PRN 11/02/21 07/16/23 subcutaneous solution Hyperglycemia clonazepam 1 mg tablet 1 mg PO BID PRN Anxiety 06/28/22 07/16/23 lamotrigine 150 mg tablet 150 mg PO BID 07/29/22 07/16/23 calcitonin (salmon) 200 1 spray intranasal DAILY 09/30/22 07/16/23 unit/actuation nasal spray insulin glargine 100 unit/mL 45 unit subcut BEDTIME 09/30/22 07/16/23 subcutaneous solution (Lantus U-100 Insulin) docusate sodium 100 mg capsule 100 mg PO BID PRN constipation 10/20/22 07/16/23 nebulizers 11/08/22 07/16/23 polyethylene glycol 3350 17 17 g PO DAILY constipation 12/21/22 07/16/23 gram/dose oral powder (Miralax) ammonium lactate 12 % lotion 1 appl topical DAILY Rash 02/02/23 07/16/23 diclofenac sodium 1 % topical gel 4 g topical QID PRN Pain 05/04/23 07/16/23 zolpidem 5 mg tablet 5 mg PO BEDTIME PRN Sleep 05/04/23 07/16/23 cholecalciferol (vitamin D3) 1,250 1,250 mcg PO MOTH 05/19/23 07/16/23 mcg (50,000 unit) capsule lidocaine 5 % topical patch 1 patch topical QAM PRN Pain 05/19/23 07/16/23 azathioprine 50 mg tablet 100 mg PO DAILY 06/24/23 07/16/23 prednisone 10 mg tablet See Taper PO DIRECTED 07/16/23 07/16/23 Previous Rx's ?Medication ?Instructions ?Recorded folic acid 1 mg tablet 1 mg PO DAILY 30 days #30 tabs 12/19/22 gabapentin 300 mg capsule 300 mg PO BID #60 caps 01/14/23 albuterol sulfate 90 mcg/actuation 2 puff inhalation Q4H PRN 02/19/23 aerosol inhaler (ProAir HFA) Shortness Of Breath Or Wheezing #1 ea arformoterol 15 mcg/2 mL solution 2 ml inhalation Q12H 30 days #120 02/20/23 for nebulization (Brovana) mL budesonide 0.5 mg/2 mL suspension 0.5 mg (2 mL) inhalation BID #120 02/20/23 for nebulization mL compress.stocking,knee,reg,med #2 ea 02/20/23 tiotropium bromide 18 mcg capsule 1 cap inhalation DAILY #30 ea 02/20/23 with inhalation device (Spiriva with HandiHaler) omeprazole 40 mg capsule,delayed 40 mg PO DAILY@0630 30 days #30 03/31/23 release caps furosemide 20 mg tablet 40 mg (2 x 20 mg) PO DAILY 90 days 05/06/23 #180 tabs ipratropium 0.5 mg-albuterol 3 mg 3 ml PO Q4H PRN for wheezing #540 06/05/23 (2.5 mg base)/3 mL nebulization mL soln Allergies Allergy/AdvReac Type Severity Reaction Status Date / Time No Known Allergies Allergy Verified 07/16/23 10:42 [No Known Allergies*] Review of Systems Review of Systems: Yes Unobtainable due to mental condition and Unobtainable due to mental status PMFSH Past Medical History Medical History Type 2 diabetes mellitus Opioid dependence Constipation Salmonella gastroenteritis CHITO (obstructive sleep apnea) Obesity with alveolar hypoventilation Congestive heart failure Chronic constipation Acute respiratory failure Hypertensive cardiovascular disease Pulmonary nodule Chronic respiratory failure Tobacco abuse Asthma-COPD overlap syndrome Hyperlipidemia, unspecified Essential hypertension Chronic respiratory failure Surgical History H/O tubal ligation Family History Family History Father Diabetes Other Asthma Social History Social History Household Members: Children Household Members Other:: daughter Housing: Apartment Do you presently have visiting nurse or other home services: Yes (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[employer]) Unable to assess alcohol history related to: Unknown Alcohol intake: never Comment: [phone] Patient Tobacco Use Status: Never used Tobacco Tobacco use type: Cigarette Cigarettes Per Day: 1 Years Smoked: 35 e-Cigarette/Vaping Use: Currently Using Second Hand Smoke Exposure: No Substance Use Type: Opiates Advance Directives: Yes Advance Directives on File: Yes Advance Directives Date on File: 06/12/21 service: No Current occupational status: unemployed and disabled Physical Exam ED Vital Signs: Vital Signs - 24 hr 07/16/23 10:35 07/16/23 10:51 07/16/23 11:04 Temperature 98.4 F Pulse Rate 120 H 117 H Respiratory Rate 18 20 Blood Pressure 136/79 Pulse Oximetry 75 L 65 L Oxygen Delivery Method Nasal Cannula BiPAP Oxygen Flow Rate Fraction of Inspired Oxygen 30 07/16/23 11:12 07/16/23 11:15 07/16/23 12:40 Temperature Pulse Rate 120 H 122 H 115 H Respiratory Rate 20 15 Blood Pressure 136/66 Pulse Oximetry 100 89 L Oxygen Delivery Method BiPAP Oxymask Oxygen Flow Rate 3 Fraction of Inspired Oxygen 50 07/16/23 12:56 07/16/23 13:17 07/16/23 13:50 Temperature 98.6 F Pulse Rate 113 H 118 H 114 H Respiratory Rate 14 15 111 H Blood Pressure 127/66 Pulse Oximetry 91 L 84 L Oxygen Delivery Method Oxymask Oxymask Oxygen Flow Rate 3 3 Fraction of Inspired Oxygen 07/16/23 14:07 07/16/23 14:28 07/16/23 14:53 Temperature Pulse Rate 111 H 106 H Respiratory Rate 15 21 H 15 Blood Pressure 144/75 H 127/67 Pulse Oximetry 88 L 89 L Oxygen Delivery Method Oxymask BiPAP Oxygen Flow Rate 2 Fraction of Inspired Oxygen 07/16/23 17:00 07/16/23 17:20 07/16/23 18:29 Temperature 97.9 F Pulse Rate 96 104 H Respiratory Rate 16 25 H 24 H Blood Pressure 143/73 H 165/88 H Pulse Oximetry 93 Oxygen Delivery Method BiPAP Oxygen Flow Rate Fraction of Inspired Oxygen 40 07/16/23 18:40 07/16/23 18:46 07/16/23 18:47 Temperature Pulse Rate 89 85 Respiratory Rate 24 H 24 H Blood Pressure 100/59 L 103/65 Pulse Oximetry 94 93 Oxygen Delivery Method Mechanical Ventilation Oxygen Flow Rate Fraction of Inspired Oxygen 30 07/16/23 18:57 07/16/23 18:59 07/16/23 19:11 Temperature Pulse Rate 81 80 Respiratory Rate 24 H 24 H Blood Pressure 97/62 97/62 Pulse Oximetry 90 L 90 L Oxygen Delivery Method Oxygen Flow Rate Fraction of Inspired Oxygen 30 07/16/23 19:11 Temperature Pulse Rate 79 Respiratory Rate 24 H Blood Pressure 98/65 Pulse Oximetry 92 Oxygen Delivery Method Mechanical Ventilation Oxygen Flow Rate Fraction of Inspired Oxygen 30 BMI result Body Mass Index 43.2 Appearance: Lethargic female, appears older than stated age, cushingoid appearance, Head: normocephalic, atraumatic. Eyes: Pupils equal, round and reactive to light. ENT: Pharynx normal. No tonsillar swelling or exudate. Neck: Enlarged, difficult to assess for JVD CVS: Tachycardic, heart rate 120, regular rhythm, Pulses normal. Respiratory: moderate respiratory distress. Breath sounds decreased at bilateral bases with inspiratory and expiratory wheezes in the upper lung matthews bilaterally. Abdomen: Rotund, obese, Soft and nontender. +BS x4 Skin: Skin warm and dry. Normal skin color. Normal skin turgor. No rashes. Extremities: 2+ right lower extremity edema w/ warmth. No joint swelling. Neuro/psych: Arouses briefly to voice but quickly falls back asleep. Follows simple commands. Course Reevaluation(s) Reevaluation #1: I note to me at change of shift by the previous team. The patient is 53-year-old female with a history of severe chronic lung disease who was in respiratory failure. She was on BiPAP. She has pneumonia. The patient had a repeat blood gas that showed persistent hypercarbia and respiratory failure. Ultimately the decision was made to intubate the patient because of her failure to improve on BiPAP. I spoke to the patient's who understands. Patient was intubated using a [place] scope ketamine and succinylcholine. The intubation was fairly straight forward. I also placed an orogastric tube. The patient was then admitted to the intensive care unit. Time: 19:00 Medications Administered Generic Name Dose Route Start Last Admin Trade Name Freq PRN Reason Stop Dose Admin Chlorhexidine Gluconate 15 ml 07/16/23 21:00 07/16/23 21:00 Chlorhexidine Gluc Oral Rinse 15 Ml Mouthwash BUCCAL 15 ml Q8H ANA Administration Furosemide 20 mg 07/16/23 21:15 07/16/23 21:30 Furosemide 20 Mg/2 Ml Vial IVPUSH 20 mg BID@0900,1800 ANA Administration Protocol Heparin Sodium (Porcine) 5,000 unit 07/16/23 21:00 07/16/23 21:00 Heparin Sodium,Porcine 5,000 Unit/Ml Vial SUBCUT 5,000 unit Q8H ANA Administration Propofol 1,000 mg in 100 mls @ 0 mls/hr 07/16/23 18:30 07/16/23 20:39 Diprivan IVCONT 50 mcg/kg/min .Q0M ANA 30.12 mls/hr Administration Protocol Per Protocol Fentanyl 1,000 mcg in 100 mls @ 0 mls/hr 07/16/23 18:30 07/16/23 20:54 Sublimaze/Ns IVCONT 100 mcg/hr .Q0M ANA 10 mls/hr Titration Protocol Per Protocol Discontinued Medications Generic Name Dose Route Start Last Admin Trade Name Freq PRN Reason Stop Dose Admin Albuterol Sulfate 2.5 mg/ 5 mg 07/16/23 13:28 07/16/23 13:48 Albuterol Sulfate 2.5 mg INHALE 07/16/23 13:29 5 mg ONCE ONE Administration Albuterol Sulfate 2.5 mg/ 0 mg 07/16/23 10:53 07/16/23 11:13 Albuterol/Ipratropium 3 ml INHALE 07/16/23 10:54 7.5 dose ONCE ONE Administration Albuterol Sulfate 2.5 mg/ 0 mg 07/16/23 16:53 07/16/23 18:32 Albuterol/Ipratropium 3 ml INHALE 07/16/23 16:54 Not Given ONCE ONE Magnesium Sulfate 2 gm in 50 mls @ 150 mls/hr 07/16/23 10:29 07/16/23 11:25 Magnesium Sulfate/H2o IV 07/16/23 10:48 Infused ONCE ONE Infusion Vancomycin HCl 2,000 mg in 500 mls @ 250 mls/hr 07/16/23 13:48 07/16/23 16:50 Vancomycin/Ns IV 07/16/23 15:47 Infused ONCE ONE Infusion Cefepime HCl 2 gm/ Sodium 50 mls @ 100 mls/hr 07/16/23 13:48 07/16/23 14:17 Chloride IV 07/16/23 14:17 Infused ONCE ONE Infusion Insulin Human Lispro 15 unit 07/16/23 12:34 07/16/23 12:53 Insulin Lispro 100 Unit/Ml 3 Ml Vial SUBCUT 07/16/23 12:35 15 unit ONCE ONE Administration Ketamine HCl 115 mg 07/16/23 18:02 07/16/23 18:10 Ketamine Hcl/Ns 50 Mg/5 Ml Syringe IVPUSH 07/16/23 18:03 115 mg ONCE ONE Administration Methylprednisolone Sodium Succinate 125 mg 07/16/23 10:29 07/16/23 11:05 Methylprednisolone Sod Succ 125 Mg/2 Ml Vial IVPUSH 07/16/23 10:30 125 mg ONCE ONE Administration Naloxone HCl 0.4 mg 07/16/23 17:21 07/16/23 17:53 Naloxone Hcl 0.4 Mg/Ml Vial IVPUSH 07/16/23 17:22 0.4 mg ONCE ONE Administration Propofol 100 mg 07/16/23 18:37 07/16/23 18:35 Propofol 200 Mg/20 Ml Vial IVPUSH 07/16/23 18:38 100 mg ONCE ONE Administration Succinylcholine Chloride 150 mg 07/16/23 18:30 07/16/23 18:12 Succinylcholine Chloride 100 Mg/5 Ml Syringe IVPUSH 07/16/23 18:31 150 mg ONCE ONE Administration Procedures Intubation Intubation Type:: Emergency Endotracheal Intubation Intubation Date:: 07/16/23 Time out performed: Yes sedative: Ketamine Mg Given: 115 paralytic: Succinylcholine Mg Given: 150 Laryngoscope: fiber optic video scope ET Tube Size: 7.5 ET Tube Uncuffed: Yes Tube Secured Location: lips Tube Placement Confirmation: visualized tube passing through cords, equal breath sounds bilaterally, no breath sounds over epigastrium and confirmation by capnometry Patient Tolerated Procedure: well Intubation Complications: none Medical Decision Making Medical Decision Making MDM Narrative: 53-year-old female with a history of chronic hypoxic and hypercapnic respiratory failure, COPD/asthma, recent admission [place] [facility] [place] for RLE cellulitis and required BiPAP in the ED presenting back with hypoxia, reports of headache and nausea. lethargic on arrival and placed on bipap. She had increased work of breathing and wheezing on arrival. Once brought into a treatment room patient was found to be hypoxic to the 60s on 30% BiPAP. FiO2 and settings were increased to increase tidal volume and minute ventilation. Patient's VBG on Bipap was 7.52/48/166. Patient was taken off of BiPAP. She continued to be lethargic and difficult to arouse. She intermittently required sternal rub for arousal. Better on our after being off of BiPAP a repeat ABG was done showing acute on chronic respiratory acidosis with pCO2 of 90 and pH of 7.29. She was placed back on rescue BiPAP. CT scan of her head was ordered along with ammonia, TSH. Chart was reviewed. 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 She was treated with voriconazole. Her last CT scan of her chest was done at this time. Will plan to repeat her CT scan of her chest as well today. Her chest x-ray is abnormal and much different than it was last week, new bibasilar opacities noted. Chest x-ray read as possible congestion. Her BNP is less than 10 and she has no history of heart failure. She has 1+ unilateral pitting edema of the right leg which was present last week. Her last echo is from 2021 showed EF of 60%, unable to assess diastolic functions at this time. Question if she would benefit from a bronchoscopy and repeat complete ECHO. She is significantly immunocompromised on immunomodulators and steroids. Will cover with vanco and cefepime for possible HCAP given she was just admitted here. Holding off on IVF given her resp status, unknown cardiac status. BP is stable. She will require admission to the intensive care unit for close monitoring, on and off BiPAP/NIV, tenuous respiratory status. Dr. Iverson assessed the patient at the bedside as well. No need for emergent intubation at this time. Repeat VBG on 30/10 with 40% (increased from 30% due to desat 80%) pending. signed out to Dr. Gonzáles Differential Diagnosis Differential Diagnoses: The differential diagnosis associated with the presentation includes HCAP, opportunistic infection such as PJP, noncompliance with BiPAP, end-stage COPD, CHITO/OHS, viral respiratory infection, CHF Admission/Observation Consideration of admission/observation: Escalation of care including admission/observation considered Consult Healthcare Provider Management of the patient was discussed with: Hospitalist and Securities Sales Associate Dr. Childress - unable to accept at this time due to no ICU patients. Lab Data MDM Lab Attestation statement: I reviewed the patient's lab results. Leukocytosis, chronic elevation of bicarbonate, hyperglycemia, no anion gap 07/16/23 11:52 07/16/23 11:52 Labs: Lab Results 07/16/23 07/16/23 07/16/23 Range/Units 11:52 12:02 14:01 WBC 13.8 H (4.8-10.8) X10*3/uL RBC 3.79 L (4.20-5.50) X10*6/uL Hgb 11.5 L (12.0-16.0) g/dl Hct 38.0 (37.0-47.0) % MCV 100.3 H (80.0-98.0) fL MCH 30.3 (27.0-33.0) pg MCHC 30.3 L (31.0-35.0) g/dl RDW 14.1 (11.0-16.0) % Plt Count 309 (160-400) X10*3/uL MPV 9.1 L (9.4-12.3) fL Immature Gran % (Auto) 1.7 H (0.0-0.4) % Neut % (Auto) 89.2 H (45-73) % Lymph % (Auto) 3.1 L (20-40) % [place] % (Auto) 5.5 (2-11) % Eos % (Auto) 0.1 (0-4) % Baso % (Auto) 0.4 (0-2) % Lymph # (Auto) 0.4 L (1.2-4.9) X10*3/uL [place] # (Auto) 0.8 (0.1-1.2) X10*3/uL Eos # (Auto) 0.0 (0.0-0.4) X10*3/uL Baso # (Auto) 0.1 (0.0-0.2) X10*3/uL Abs Immat Gran (auto) 0.24 H (0.00-0.03) X10*3/uL Absolute Neuts (auto) 12.3 H (2.0-8.3) x10*3/uL Absolute Nucleated RBC 0.000 (0.0-0.012) X10*3/uL Nucleated RBC % (auto) 0.0 (0.0-0.2) /100WBC ESR 82 H (0-20) MM/HR VBG pH 7.52 H (7.32-7.43) VBG pCO2 48 mmHg VBG pO2 166 mmHg VBG HCO3 39 H (22-26) mmol/L VBG O2 Saturation 99.0 % VBG Base Excess 14.9 mmol/L Sodium 139 (135-145) mmol/L Potassium 5.0 (3.3-5.1) mmol/L Chloride 92 L (96-108) mmol/L Carbon Dioxide 37 H (22-29) mmol/L Anion Gap 15 (12-20) BUN 22 H (9-16) mg/dL Creatinine 0.70 (0.5-1.4) mg/dL Estim Creat Clear Calc 98.9 Estimated GFR > 60 Random Glucose 354 H* (60-115) mg/dL Lactic Acid 0.6 (0.5-2.0) mmol/L Calcium 9.5 (8.4-10.2) mg/dL Magnesium 2.2 (1.6-2.6) mg/dL Total Bilirubin 0.2 (0.0-1.0) mg/dL Direct Bilirubin < 0.2 (0.0-0.5) mg/dL AST 20 (5-31) U/L ALT 29 (0-31) U/L Alkaline Phosphatase 51 (39-117) U/L Ammonia (13-55) umol/L Lactate Dehydrogenase 462 H (122-220) U/L Troponin I High Sens 10.0 (<3.5-17.0) ng/L C-Reactive Protein 10.74 H (< or = 0.50) mg/dL B-Natriuretic Peptide < 10 (<100) pg/mL Total Protein 7.2 (6.5-8.0) g/dL Albumin 3.9 (3.5-5.0) g/dL Procalcitonin 0.08 ng/mL TSH 0.22 L (0.32-4.0) uIU/mL Urine Color Urine Appearance Urine pH (5.0-9.0) Ur Specific [place] (1.005-1.025) Urine Protein (Neg-Trace) mg/dL Urine Glucose (UA) (Negative) mg/dL Urine Ketones (Negative) mg/dL Urine Blood (Negative) Urine Nitrite (Negative) Ur Leukocyte Esterase (Negative) Urine RBC (0-2) /HPF Urine WBC (0-5) /HPF Ur Squamous Epith Cells (0-2) /HPF Urine Bacteria (None Seen) Hyaline Casts (0-2) /LPF Urine Opiates Screen (Not Detect) Ur Buprenorphine Scrn (Not Detect) ng/mL Ur Oxycodone Screen (Not Detect) ng/mL Urine Methadone Screen (Not Detect) ng/mL Urine Fentanyl Screen (Not Detect) Ur Barbiturates Screen (Not Detect) Ur Phencyclidine Scrn (Not Detect) Ur Amphetamines Screen (Not Detect) U Benzodiazepines Scrn (Not Detect) Urine Cocaine Screen (Not Detect) U Marijuana (THC) Screen (Not Detect) Influenza Type A (PCR) NEGATIVE (Negative) Influenza Type B (PCR) NEGATIVE (Negative) RSV RNA Qual (PCR) NEGATIVE (Negative) SARS-CoV-2 RNA (RT-PCR) NEGATIVE (Negative) 07/16/23 07/16/23 07/16/23 Range/Units 14:03 14:04 16:41 WBC (4.8-10.8) X10*3/uL RBC (4.20-5.50) X10*6/uL Hgb (12.0-16.0) g/dl Hct (37.0-47.0) % MCV (80.0-98.0) fL MCH (27.0-33.0) pg MCHC (31.0-35.0) g/dl RDW (11.0-16.0) % Plt Count (160-400) X10*3/uL MPV (9.4-12.3) fL Immature Gran % (Auto) (0.0-0.4) % Neut % (Auto) (45-73) % Lymph % (Auto) (20-40) % Stanton % (Auto) (2-11) % Eos % (Auto) (0-4) % Baso % (Auto) (0-2) % Lymph # (Auto) (1.2-4.9) X10*3/uL [place] # (Auto) (0.1-1.2) X10*3/uL Eos # (Auto) (0.0-0.4) X10*3/uL Baso # (Auto) (0.0-0.2) X10*3/uL Abs Immat Gran (auto) (0.00-0.03) X10*3/uL Absolute Neuts (auto) (2.0-8.3) x10*3/uL Absolute Nucleated RBC (0.0-0.012) X10*3/uL Nucleated RBC % (auto) (0.0-0.2) /100WBC ESR (0-20) MM/HR VBG pH 7.29 L 7.30 L (7.32-7.43) VBG pCO2 90 89 mmHg VBG pO2 113 86 mmHg VBG HCO3 43 H 44 H (22-26) mmol/L VBG O2 Saturation 100.0 96.0 % VBG Base Excess 13.2 14.2 mmol/L Sodium (135-145) mmol/L Potassium (3.3-5.1) mmol/L Chloride (96-108) mmol/L Carbon Dioxide (22-29) mmol/L Anion Gap (12-20) BUN (9-16) mg/dL Creatinine (0.5-1.4) mg/dL Estim Creat Clear Calc Estimated GFR Random Glucose (60-115) mg/dL Lactic Acid (0.5-2.0) mmol/L Calcium (8.4-10.2) mg/dL Magnesium (1.6-2.6) mg/dL Total Bilirubin (0.0-1.0) mg/dL Direct Bilirubin (0.0-0.5) mg/dL AST (5-31) U/L ALT (0-31) U/L Alkaline Phosphatase (39-117) U/L Ammonia 48 (13-55) umol/L Lactate Dehydrogenase (122-220) U/L Troponin I High Sens (<3.5-17.0) ng/L C-Reactive Protein (< or = 0.50) mg/dL B-Natriuretic Peptide (<100) pg/mL Total Protein (6.5-8.0) g/dL Albumin (3.5-5.0) g/dL Procalcitonin ng/mL TSH (0.32-4.0) uIU/mL Urine Color Urine Appearance Urine pH (5.0-9.0) Ur Specific [place] (1.005-1.025) Urine Protein (Neg-Trace) mg/dL Urine Glucose (UA) (Negative) mg/dL Urine Ketones (Negative) mg/dL Urine Blood (Negative) Urine Nitrite (Negative) Ur Leukocyte Esterase (Negative) Urine RBC (0-2) /HPF Urine WBC (0-5) /HPF Ur Squamous Epith Cells (0-2) /HPF Urine Bacteria (None Seen) Hyaline Casts (0-2) /LPF Urine Opiates Screen (Not Detect) Ur Buprenorphine Scrn (Not Detect) ng/mL Ur Oxycodone Screen (Not Detect) ng/mL Urine Methadone Screen (Not Detect) ng/mL Urine Fentanyl Screen (Not Detect) Ur Barbiturates Screen (Not Detect) Ur Phencyclidine Scrn (Not Detect) Ur Amphetamines Screen (Not Detect) U Benzodiazepines Scrn (Not Detect) Urine Cocaine Screen (Not Detect) U Marijuana (THC) Screen (Not Detect) Influenza Type A (PCR) (Negative) Influenza Type B (PCR) (Negative) RSV RNA Qual (PCR) (Negative) SARS-CoV-2 RNA (RT-PCR) (Negative) 07/16/23 Range/Units 16:48 WBC (4.8-10.8) X10*3/uL RBC (4.20-5.50) X10*6/uL Hgb (12.0-16.0) g/dl Hct (37.0-47.0) % MCV (80.0-98.0) fL MCH (27.0-33.0) pg MCHC (31.0-35.0) g/dl RDW (11.0-16.0) % Plt Count (160-400) X10*3/uL MPV (9.4-12.3) fL Immature Gran % (Auto) (0.0-0.4) % Neut % (Auto) (45-73) % Lymph % (Auto) (20-40) % [place] % (Auto) (2-11) % Eos % (Auto) (0-4) % Baso % (Auto) (0-2) % Lymph # (Auto) (1.2-4.9) X10*3/uL [place] # (Auto) (0.1-1.2) X10*3/uL Eos # (Auto) (0.0-0.4) X10*3/uL Baso # (Auto) (0.0-0.2) X10*3/uL Abs Immat Gran (auto) (0.00-0.03) X10*3/uL Absolute Neuts (auto) (2.0-8.3) x10*3/uL Absolute Nucleated RBC (0.0-0.012) X10*3/uL Nucleated RBC % (auto) (0.0-0.2) /100WBC ESR (0-20) MM/HR VBG pH (7.32-7.43) VBG pCO2 mmHg VBG pO2 mmHg VBG HCO3 (22-26) mmol/L VBG O2 Saturation % VBG Base Excess mmol/L Sodium (135-145) mmol/L Potassium (3.3-5.1) mmol/L Chloride (96-108) mmol/L Carbon Dioxide (22-29) mmol/L Anion Gap (12-20) BUN (9-16) mg/dL Creatinine (0.5-1.4) mg/dL Estim Creat Clear Calc Estimated GFR Random Glucose (60-115) mg/dL Lactic Acid (0.5-2.0) mmol/L Calcium (8.4-10.2) mg/dL Magnesium (1.6-2.6) mg/dL Total Bilirubin (0.0-1.0) mg/dL Direct Bilirubin (0.0-0.5) mg/dL AST (5-31) U/L ALT (0-31) U/L Alkaline Phosphatase (39-117) U/L Ammonia (13-55) umol/L Lactate Dehydrogenase (122-220) U/L Troponin I High Sens (<3.5-17.0) ng/L C-Reactive Protein (< or = 0.50) mg/dL B-Natriuretic Peptide (<100) pg/mL Total Protein (6.5-8.0) g/dL Albumin (3.5-5.0) g/dL Procalcitonin ng/mL TSH (0.32-4.0) uIU/mL Urine Color Yellow Urine Appearance Clear Urine pH 6.0 (5.0-9.0) Ur Specific [place] >= 1.030 H (1.005-1.025) Urine Protein 30 (1+) H (Neg-Trace) mg/dL Urine Glucose (UA) >=1000 H (Negative) mg/dL Urine Ketones Negative (Negative) mg/dL Urine Blood Negative (Negative) Urine Nitrite Negative (Negative) Ur Leukocyte Esterase Negative (Negative) Urine RBC 0-2 (0-2) /HPF Urine WBC 0-5 (0-5) /HPF Ur Squamous Epith Cells 0-2 (0-2) /HPF Urine Bacteria None Seen (None Seen) Hyaline Casts 0-2 (0-2) /LPF Urine Opiates Screen Not Detected (Not Detect) Ur Buprenorphine Scrn Not Detected (Not Detect) ng/mL Ur Oxycodone Screen Not Detected (Not Detect) ng/mL Urine Methadone Screen Positive H (Not Detect) ng/mL Urine Fentanyl Screen Not Detected (Not Detect) Ur Barbiturates Screen Not Detected (Not Detect) Ur Phencyclidine Scrn Not Detected (Not Detect) Ur Amphetamines Screen Not Detected (Not Detect) U Benzodiazepines Scrn Not Detected (Not Detect) Urine Cocaine Screen Not Detected (Not Detect) U Marijuana (THC) Screen Not Detected (Not Detect) Influenza Type A (PCR) (Negative) Influenza Type B (PCR) (Negative) RSV RNA Qual (PCR) (Negative) SARS-CoV-2 RNA (RT-PCR) (Negative) Independent Interpretation I performed an independent interpretation of an: EKG and Plain X-Ray Interpretation: EKG with sinus tachycardia, ventricular rate 118 beats per minute, incomplete right bundle-branch block, normal QRS, normal [place] interval, isolated T-wave inversion in V1 only, no ST segment elevations depressions X-ray with new bibasilar opacities Radiology Impression Discussion of test interpretation with radiology: I have reviewed the radiologist's reading. Radiologist Impression: EXAMINATION: XR CHEST CLINICAL INFORMATION: Hypoxia and shortness of breath COMPARISON: 07/09/2023 TECHNIQUE: Frontal view of the chest was obtained. FINDINGS: Moderate cardiomegaly with mild to moderate distention of the pulmonary vessels. Bibasilar edema. There may be trace effusions. Findings appear worse. XR/XR chest 1V IMPRESSION: Congestive changes which appear worse. Independent Historian Clinical information obtained from an independent historian. History obtained from or confirmed by: EMS External Record Review External record reviewed: Inpatient record, Office record, Outpatient record, Prior outpatient labs and Prior outpatient radiology Prescription Management I considered prescription management with: Antiviral and Antibiotic Chronic Conditions Patient?s care impacted by: Diabetes and Other (Asthma/COPD) Critical Care Time Critical Care Time Critical Care Time: Yes Total Critical Care Time: 72 Attestation: I have personally provided critical care time exclusive of time spent on separately billable procedures. Time includes review of lab data, radiology results, discussion with consultants, and monitoring for potential decompensation. Intervention performed as documented. Discharge Plan Discharge Clinical Impression: Acute on chronic respiratory failure with hypoxia and hypercapnia, Metabolic encephalopathy, Pneumonia, COPD (chronic obstructive pulmonary disease) Patient Disposition: Admitted As Inpatient Interventions: Admission Worksheet (ED) Last Done: 07/16/23 20:02 Discharge Date/Time: 07/16/23 20:02
[2023-07-16] MEDS: methylPREDNISolone Sod Succ 125 MG/2 ML VIAL IVPUSH (11:05)
[2023-07-16] MEDS: Magnesium Sulfate/H2O 2 GM/50 ML PIGGYBACK IV (11:05)
--- NOTE | 2023-07-16 11:07 | PC.NURSE ---
Pt very dificult stick, attempted multiple charly. #22 to LAC established, unable to obtain labs. PA aware.
[2023-07-16] MEDS: Albuterol Sulfate 2.5 MG, Albuterol/Iprat 2.5/0.5MG 3 ML 3 ML INHALE (11:13)
[2023-07-16 12:12] LABS: Basophils Absolute Auto 0.1 X10*3/uL (0.0-0.2); Basophils Percent Auto 0.4 % (0-2); Eosinophils Percent Auto 0.1 % (0-4); Hemoglobin 11.5 g/dl (12.0-16.0); Imm Gran Abs Auto 0.24 X10*3/uL (0.00-0.03); Imm Gran Pct Auto 1.7 % (0.0-0.4); Lymphocytes Absolute Auto 0.4 X10*3/uL (1.2-4.9); Lymphocytes Percent Auto 3.1 % (20-40); Mean Corpuscular HGB Conc 30.3 g/dl (31.0-35.0); Mean Corpuscular Hemoglobin 30.3 pg (27.0-33.0); Mean Corpuscular Volume 100.3 fL (80.0-98.0); Mean Platelet Volume 9.1 fL (9.4-12.3); Monocytes Absolute Auto 0.8 X10*3/uL (0.1-1.2); Monocytes Percent Auto 5.5 % (2-11); Neutrophils Absolute Auto 12.3 x10*3/uL (2.0-8.3); Neutrophils Percent Auto 89.2 % (45-73); Platelet Count 309 X10*3/uL (160-400); Red Blood Count 3.79 X10*6/uL (4.20-5.50); Red Cell Distribution Width 14.1 % (11.0-16.0); White Blood Count 13.8 X10*3/uL (4.8-10.8)
--- NOTE | 2023-07-16 12:16 | PC.NURSE ---
Resource RN at bedside to attempt US guided PIV.
[2023-07-16 12:30] LABS: Lactic Acid 0.6 mmol/L (0.5-2.0)
[2023-07-16 12:32] LABS: B Type Natriuretic Peptide < 10 pg/mL (<100)
[2023-07-16 12:33] LABS: Alanine Aminotransferase 29 U/L (0-31); Albumin Level 3.9 g/dL (3.5-5.0); Alkaline Phosphatase 51 U/L (39-117); Anion Gap 15 (12-20); Aspartate Amino Transferase 20 U/L (5-31); Bilirubin Direct < 0.2 mg/dL (0.0-0.5); Bilirubin Total 0.2 mg/dL (0.0-1.0); Blood Urea Nitrogen 22 mg/dL (9-16); Calcium 9.5 mg/dL (8.4-10.2); Carbon Dioxide 37 mmol/L (22-29); Chloride 92 mmol/L (96-108); Creatinine Clr Calc Pharmacy 98.9; Estimated Glomerular Filt Rate > 60; Magnesium 2.2 mg/dL (1.6-2.6); Sodium 139 mmol/L (135-145); Total Protein 7.2 g/dL (6.5-8.0)
[2023-07-16 12:34] LABS: Glucose Random 354 mg/dL (60-115)
--- NOTE | 2023-07-16 12:39 | PC.NURSE ---
Pt taken off BIPAP by respiratory (not hypercarbic), still noted to be quit lethargic. Sating 88% on 3L oxymask.
--- NOTE | 2023-07-16 12:52 | PC.NURSE ---
Pt arousable to repeated sternal rubbing, will flutter eyes open momentarily but does not speak. MAUREEN Banda made aware.
[2023-07-16] MEDS: Insulin Lispro 100 UNIT/ML 3 ML VIAL 15 UNIT SUBCUT (12:53)
--- NOTE | 2023-07-16 13:16 | PC.NURSE ---
Rectal temp 98.7. Right leg noted to be warm, swollen. MAUREEN Banda at bedside to evaluate.
[2023-07-16] MEDS: Albuterol Sulfate 2.5 MG, Albuterol Sulfate (0.083%) 2.5 MG 5 MG INHALE (13:48)
[2023-07-16] MEDS: cefEPime HCl 2 GM in 0.9 % Sodium Chloride 50 ML IV (14:05)
[2023-07-16 14:06] LABS: C Reactive Protein 10.74 mg/dL (< or = 0.50); Lactate Dehydrogenase 462 U/L (122-220)
[2023-07-16 14:12] LABS: Venous Blood Gas Refer to POC result
[2023-07-16 14:12] LABS: VBG Base Excess 13.2 mmol/L; VBG HCO3 43 mmol/L (22-26); VBG pCO2 90 mmHg; VBG pH 7.29 (7.32-7.43); VBG pO2 113 mmHg
[2023-07-16 14:18] LABS: Ammonia 48 umol/L (13-55)
[2023-07-16 14:28] LABS: Procalcitonin 0.08 ng/mL; Thyroid Stimulating Hormone 0.22 uIU/mL (0.32-4.0)
[2023-07-16 14:33] LABS: Erythrocyte Sedimentation Rate 82 MM/HR (0-20)
[2023-07-16 14:46] LABS: Influenza A PCR NEGATIVE (Negative); Influenza B PCR NEGATIVE (Negative); Resp Syncy Virus RNA Qual PCR NEGATIVE (Negative); SARS COV2 PCR INHOUSE NEGATIVE (Negative)
[2023-07-16] MEDS: vancomycin/NS 2,000 MG/500 ML PLAST..BAG 250 MG IV ×2 (14:50→21:41)
--- NOTE | 2023-07-16 15:07 | PHA.MEDREC ---
Pharmacy Consult ? Medication Reconciliation Pharmacy has completed the medication reconciliation. Patient recently discharged on 07/12/23, utilized discharge summary. Jyoti Camacho, [place]
[2023-07-16 16:47] LABS: VBG Base Excess 14.2 mmol/L; VBG HCO3 44 mmol/L (22-26); VBG pCO2 89 mmHg; VBG pO2 86 mmHg
[2023-07-16 16:48] LABS: Venous Blood Gas Refer to POC result
[2023-07-16 17:01] LABS: Appearance Urine Clear; Color Urine Yellow; Glucose Urine UA >=1000 mg/dL (Negative); Leukocyte Esterase Urine Negative (Negative); Nitrite Urine Negative (Negative); Specific Gravity - Urine >= 1.030 (1.005-1.025); UMIC TRIGGER UACC YES; Urine Blood Negative (Negative); Urine Ketones Negative (Negative); Urine Protein 30 (1+) mg/dL (Neg-Trace)
[2023-07-16 17:06] LABS: Amphetamine Screen Urine Not Detected (Not Detect); Barbiturates, Urine Not Detected (Not Detect); Benzodiazepines Screen Urine Not Detected (Not Detect); Buprenorphine Scr Not Detected (Not Detect); Cannabinoid Screen Urine Not Detected (Not Detect); Cocaine Screen Urine Not Detected (Not Detect); Fentanyl, urine Not Detected (Not Detect); Methadone Screen, Urine Positive (Not Detect); Opiate Screen Urine Not Detected (Not Detect); Oxycodone Screen Urine Not Detected (Not Detect); Phencyclidine Screen Urine Not Detected (Not Detect)
[2023-07-16 17:14] LABS: Bacteria Urine None Seen (None Seen); Hyaline Casts Urine 0-2 /LPF (0-2); RBC Urine 0-2 /HPF (0-2); Squamous Epithelial Cell Urine 0-2 /HPF (0-2); WBC Urine 0-5 /HPF (0-5)
--- NOTE | 2023-07-16 17:27 | PC.NURSE ---
this rn assumed care of pt @ 1500. pt moed from ed 20 to ed 17 pt more arousable after CT scan to name. @1640 pt desat to 62% on bipap 30% fio2, fio2 adjusted to 50% , pt given 2 minutes 100% fio2 spo2 recovered to 99% bipap fio2 moved back to 40% this rn and additional rn placed 16french jimenez 10ml balloon inflated, 900ml immediate output per dr kern plan for disposition to icu
[2023-07-16] MEDS: Naloxone HCl 0.4 MG/ML VIAL IVPUSH (17:53)
[2023-07-16] MEDS: Ketamine HCl/NS 50 MG/5 ML SYRINGE 115 MG IVPUSH (18:10)
[2023-07-16] MEDS: Succinylcholine Chloride 100 MG/5 ML SYRINGE 150 MG IVPUSH (18:12)
[2023-07-16] MEDS: propofoL 1,000 MG/100 ML VIAL 30.12 MG IVCONT ×3 (18:29→23:54)
[2023-07-16] MEDS: propofoL 200 MG/20 ML VIAL 100 MG IVPUSH (18:35)
[2023-07-16] MEDS: fentaNYL citrate/NS 1,000 MCG/100 ML PLAST..BAG 2.5 MCG IVCONT (18:40)
--- NOTE | 2023-07-16 18:50 | PC.NURSE ---
per dr kern iv narcan administered after previously holding medication. this rn made concerns for aspiration risk aware to dr kern as pt is minimally responsive and on bipap device. per dr kern plan remains to give iv narcan. med administered, pt became arosuable and vomited in bip[ap rt to bedside md to bedside, pt placed on oxymask and moved to ed bed 5 for intubation ketamine 115mg admin 1810 suc. 150mg admin 1812 @1813 HR 110 100% oxymask 17 rr labored BP 146/82 pt intubated @ 1814 23 @ lip og placed by propofol gtt initiated @ 1817 @ 40mcg/kg/min
--- NOTE | 2023-07-16 18:54 | PC.NURSE ---
This RN assumed care of patient for intubation. patient medicated per MAR for intubation. propofol started, 40mcg/kg/min per providers orders, patient bolused with 100ml propofol requested by MD for vent asynchrony. patient then started on fentanyl drip for more sedation, patient initially 25mcg/kg/h, bumped up to 50mcg/kg/h due to vent asynchrony. patient now appears to be moderatly sedated, VSS
--- NOTE | 2023-07-16 19:23 | PC.NURSE ---
assumed care of pt at 1915. Rt called bedside as pt was desating. Rt placed bite block
--- NOTE | 2023-07-16 20:05 | PM.CCHP ---
History of Present Illness Date of Service: 07/16/23 Attending physician on admission: Yadira Childress Chief Complaint: Acute hypoxic and hypercapnic respiratory failure Ms. Radu Larios is a 53 yo female well known to [facility] with with history of chronic hypoxic and hypercarbic respiratory failure on 2L NC and BiPAP QHS, CHITO/OHS, aspiration, asthma/COPD overlap syndrome, former smoker,? chronic methadone use, obesity, DM, CHITO, HLD.? She was recently admitted 07/08-? for acute and chronic respiratory failure with hypercapnia. The patient was brought in by ambulance with complaint of headache and nausea. She was found to be hypoxic to 60?s%.? She was initially placed on BiPAP but failed to improve and was ultimately intubated.? On arrival to the emergency department the patient?s O2 sat was 75% on 2LNC. She was lethargic, complaining of a productive cough, increased work of breathing and wheezing. She was placed on BiPAP throughout the day but due to increased lethargy and ABGs showing worsening hypoxic hypercapnic respiratory failure requiring emergent intubation in the emergency department. Laboratory data significant for WBC 13.8,? CO2 37, BUN 22, glucose 354, lactic acid 0.6, LDH 462, CRP 10.74, procalcitonin 0.08.? VBG showed pH of 7 point 5 2, pCO2 48, PO2 166, HC03 39.? UA was negative for UTI. IMAGING:? CXR: worsening congestive changes. Chest CT:? bibasilar bronchopneumonia greatest in the lower lobes. Abdomen/pelvis CT: no acute findings. Head CT:? no acute findings. ED course: The patient received? magnesium 2 g, methylprednisolone 125 mg,? albuterol x2, insulin human lispro 15 units, vancomycin 2 g, cefepime 2 g.? Ketamine was used for RSI.? Propofol and fentanyl drips started for sedation. The patient was admitted to ICU for acute hypercapnic? hypoxic respiratory failure and pneumonia requiring mechanical ventilation. Review of Systems Review of Systems: Yes unobtainable due to endotracheal tube PMFSH Past Medical History Medical History Type 2 diabetes mellitus Opioid dependence Constipation Salmonella gastroenteritis CHITO (obstructive sleep apnea) Obesity with alveolar hypoventilation Congestive heart failure Chronic constipation Acute respiratory failure Hypertensive cardiovascular disease Pulmonary nodule Chronic respiratory failure Tobacco abuse Asthma-COPD overlap syndrome Hyperlipidemia, unspecified Essential hypertension Chronic respiratory failure Family History Family History Father Diabetes Other Asthma Surgical History Surgical History H/O tubal ligation Social History Social History Household Members: Children Household Members Other:: daughter Housing: Apartment Do you presently have visiting nurse or other home services: Yes Unable to assess alcohol history related to: Unknown Alcohol intake: never Comment: 254 Patient Tobacco Use Status: Former Tobacco user Quit Date: February 2022 Tobacco use type: Cigarette Cigarettes Per Day: 1 Years Smoked: 35 Smoked in Last 30 Days: No e-Cigarette/Vaping Use: Currently Using Second Hand Smoke Exposure: No Use of substances other than those prescribed or required for medical reasons: Unable to respond Substance Use Type: Opiates Advance Directives: Yes Advance Directives on File: Yes Advance Directives Date on File: 06/12/21 Recently lost weight without trying: Unsure Nutrition Risks: On aspiration precautions Patient : No : No Poor oral hygiene: No service: No Current occupational status: unemployed and disabled Meds Allergies Allergy/AdvReac Type Severity Reaction Status Date / Time No Known Allergies Allergy Verified 07/16/23 10:42 [No Known Allergies*] Active Medications: Current Medications Chlorhexidine Gluconate (Chlorhexidine Gluc Oral Rinse 15 Ml Mouthwash) 15 ml BUCCAL Q8H ANA Heparin Sodium (Porcine) (Heparin Sodium,Porcine 5,000 Unit/Ml Vial) 5,000 unit SUBCUT Q8H ANA Propofol (Diprivan) 1,000 mg in 100 mls @ 0 mls/hr IVCONT .Q0M ANA; Protocol Last Titration: 07/16/23 19:37 Dose: 40 mcg/kg/min, 24.1 mls/hr Fentanyl (Sublimaze/Ns) 1,000 mcg in 100 mls @ 0 mls/hr IVCONT .Q0M ANA; Protocol Last Titration: 07/16/23 18:57 Dose: 50 mcg/hr, 5 mls/hr Naloxone HCl (Naloxone Hcl 0.4 Mg/Ml Vial) 0.2 mg IVPUSH Q2M PRN PRN Reason: Excessive sedation or RR < 8 Pantoprazole Sodium (Pantoprazole Sodium 40 Mg/10 Ml Vial) 40 mg IVPUSH DAILY@0630 [facility] Home Medications ?Medication ?Instructions ?Recorded ?Confirmed ?Last Taken ?Type loratadine 10 mg tablet (Claritin) 10 mg PO DAILY 12/30/19 07/16/23 05/18/23 History montelukast 10 mg tablet 10 mg PO BEDTIME 12/30/19 07/16/23 05/18/23 History diltiazem HCl 360 mg capsule,24 360 mg PO DAILY 11/16/20 07/16/23 05/18/23 History hr,extended release (Tiadylt ER) roflumilast 500 mcg tablet 500 mcg PO DAILY 11/16/20 07/16/23 05/18/23 History (Daliresp) rosuvastatin 5 mg tablet 5 mg PO BEDTIME 11/16/20 07/16/23 05/18/23 History metformin 500 mg tablet,extended 500 mg PO DAILY 05/18/21 07/16/23 05/18/23 History release 24 hr methadone 10 mg/mL oral concentrate 50 mg PO DAILY 06/06/21 07/16/23 07/09/23 History hydralazine 25 mg tablet 25 mg PO TIDWM 11/02/21 07/16/23 05/18/23 History insulin lispro 100 unit/mL 4 unit subcut TIDAC PRN 11/02/21 07/16/23 05/18/23 History subcutaneous solution Hyperglycemia clonazepam 1 mg tablet 1 mg PO BID PRN Anxiety 06/28/22 07/16/23 Unknown History lamotrigine 150 mg tablet 150 mg PO BID 07/29/22 07/16/23 05/18/23 History calcitonin (salmon) 200 1 spray intranasal DAILY 09/30/22 07/16/23 05/18/23 History unit/actuation nasal spray insulin glargine 100 unit/mL 45 unit subcut BEDTIME 09/30/22 07/16/23 05/18/23 History subcutaneous solution (Lantus U-100 Insulin) docusate sodium 100 mg capsule 100 mg PO BID PRN constipation 10/20/22 07/16/23 Unknown History nebulizers 11/08/22 07/16/2302/02/23 09:00 History polyethylene glycol 3350 17 17 g PO DAILY constipation 12/21/22 07/16/23 02/20/23 History gram/dose oral powder (Miralax) ammonium lactate 12 % lotion 1 appl topical DAILY Rash 02/02/23 07/16/23 05/18/23 History diclofenac sodium 1 % topical gel 4 g topical QID PRN Pain 05/04/23 07/16/23 Unknown History zolpidem 5 mg tablet 5 mg PO BEDTIME PRN Sleep 05/04/23 07/16/23 Unknown History cholecalciferol (vitamin D3) 1,250 1,250 mcg PO MOTH 05/19/23 07/16/23 Unknown History mcg (50,000 unit) capsule lidocaine 5 % topical patch 1 patch topical QAM PRN Pain 05/19/23 07/16/23 Unknown History azathioprine 50 mg tablet 100 mg PO DAILY 06/24/23 07/16/23 Unknown History prednisone 10 mg tablet See Taper PO DIRECTED 07/16/23 07/16/23 Unknown History Physical Exam Vital Signs: Vital Signs: Last Vital Signs Temp 97.9 F 07/16/23 17:00 Pulse 77 07/16/23 19:37 Resp 24 H 07/16/23 19:37 BP 100/66 07/16/23 19:37 Pulse Ox 94 07/16/23 19:37 O2 Del Method Mechanical Ventil ation 07/16/23 19:11 O2 Flow Rate 2 07/16/23 14:07 FiO2 30 07/16/23 19:11 Oxygen Flow Rate 2 07/16/23 10:35 BMI result Body Mass Index 43.2 Const: General: no acute distress Nutritional Appearance: obese centrally obese (Cushingoid appearance) HEENT: Head: Yes normocephalic and Yes atraumatic General nose exam: Normal external nose present (Nares patent, septum midline) Mouth: Normal oral and palatal mucosa present (tongue in midline, mucosa moist.) Eyes: Pupils: Equal, round and reactive pupils present Neck: Neck: Yes other (enlarged) Resp: Auscultation: wheezes expiratory wheezes and throughout and diminished lung sounds Cardio: Jugular venous distension: no JVD (difficult to assess due to neck size) Rate: regular rate Rhythm: regular rhythm Heart sounds: no gallops, no murmurs and no rubs Peripheral pulses: Peripheral pulses 2+ throughout GI: Palpation (GI): Soft to palpation and nontender Auscultation: normal bowel sounds Skin: General skin exam: no rashes or lesions noted and ecchymosis (right upper back) Wounds: no wounds Hair: normal Nails: normal Neuro: Cranial nerves: Yes Equal, round and reactive pupils present Extrem: General: Yes full ROM and Yes capillary refill normal Right lower extremity: lower leg Details: erythema, pitting edema Details: 1+ and warmth Results Labs 07/16/23 11:52 07/16/23 11:52 Labs: Laboratory Results - last 24 hr 07/16/23 07/16/23 07/16/23 11:52 12:02 14:01 MCV 100.3 H MCH 30.3 MCHC 30.3 L RDW 14.1 Plt Count 309 MPV 9.1 L Immature Gran % (Auto) 1.7 H Neut % (Auto) 89.2 H Lymph % (Auto) 3.1 L Humphreys % (Auto) 5.5 Eos % (Auto) 0.1 Baso % (Auto) 0.4 Lymph # (Auto) 0.4 L Humphreys # (Auto) 0.8 Eos # (Auto) 0.0 Baso # (Auto) 0.1 Abs Immat Gran (auto) 0.24 H Absolute Neuts (auto) 12.3 H Absolute Nucleated RBC 0.000 Nucleated RBC % (auto) 0.0 ESR 82 H VBG pH 7.52 H VBG pCO2 48 VBG pO2 166 VBG HCO3 39 H VBG O2 Saturation 99.0 VBG Base Excess 14.9 Anion Gap 15 Estim Creat Clear Calc 98.9 Estimated GFR > 60 Random Glucose 354 H* Lactic Acid 0.6 Calcium 9.5 Magnesium 2.2 Total Bilirubin 0.2 Direct Bilirubin < 0.2 AST 20 ALT 29 Alkaline Phosphatase 51 Ammonia Lactate Dehydrogenase 462 H Troponin I High Sens 10.0 C-Reactive Protein 10.74 H B-Natriuretic Peptide < 10 Total Protein 7.2 Albumin 3.9 Procalcitonin 0.08 TSH 0.22 L Urine Color Urine Appearance Urine pH Ur Specific [place] Urine Protein Urine Glucose (UA) Urine Ketones Urine Blood Urine Nitrite Ur Leukocyte Esterase Urine RBC Urine WBC Ur Squamous Epith Cells Urine Bacteria Hyaline Casts Urine Opiates Screen Ur Buprenorphine Scrn Ur Oxycodone Screen Urine Methadone Screen Urine Fentanyl Screen Ur Barbiturates Screen Ur Phencyclidine Scrn Ur Amphetamines Screen U Benzodiazepines Scrn Urine Cocaine Screen U Marijuana (THC) Screen Influenza Type A (PCR) NEGATIVE Influenza Type B (PCR) NEGATIVE RSV RNA Qual (PCR) NEGATIVE SARS-CoV-2 RNA (RT-PCR) NEGATIVE 07/16/23 07/16/23 07/16/23 14:03 14:04 16:41 MCV MCH MCHC RDW Plt Count MPV Immature Gran % (Auto) Neut % (Auto) Lymph % (Auto) Humphreys % (Auto) Eos % (Auto) Baso % (Auto) Lymph # (Auto) Humphreys # (Auto) Eos # (Auto) Baso # (Auto) Abs Immat Gran (auto) Absolute Neuts (auto) Absolute Nucleated RBC Nucleated RBC % (auto) ESR VBG pH 7.29 L 7.30 L VBG pCO2 90 89 VBG pO2 113 86 VBG HCO3 43 H 44 H VBG O2 Saturation 100.0 96.0 VBG Base Excess 13.2 14.2 Anion Gap Estim Creat Clear Calc Estimated GFR Random Glucose Lactic Acid Calcium Magnesium Total Bilirubin Direct Bilirubin AST ALT Alkaline Phosphatase Ammonia 48 Lactate Dehydrogenase Troponin I High Sens C-Reactive Protein B-Natriuretic Peptide Total Protein Albumin Procalcitonin TSH Urine Color Urine Appearance Urine pH Ur Specific [place] Urine Protein Urine Glucose (UA) Urine Ketones Urine Blood Urine Nitrite Ur Leukocyte Esterase Urine RBC Urine WBC Ur Squamous Epith Cells Urine Bacteria Hyaline Casts Urine Opiates Screen Ur Buprenorphine Scrn Ur Oxycodone Screen Urine Methadone Screen Urine Fentanyl Screen Ur Barbiturates Screen Ur Phencyclidine Scrn Ur Amphetamines Screen U Benzodiazepines Scrn Urine Cocaine Screen U Marijuana (THC) Screen Influenza Type A (PCR) Influenza Type B (PCR) RSV RNA Qual (PCR) SARS-CoV-2 RNA (RT-PCR) 07/16/23 16:48 MCV MCH MCHC RDW Plt Count MPV Immature Gran % (Auto) Neut % (Auto) Lymph % (Auto) Humphreys % (Auto) Eos % (Auto) Baso % (Auto) Lymph # (Auto) Humphreys # (Auto) Eos # (Auto) Baso # (Auto) Abs Immat Gran (auto) Absolute Neuts (auto) Absolute Nucleated RBC Nucleated RBC % (auto) ESR VBG pH VBG pCO2 VBG pO2 VBG HCO3 VBG O2 Saturation VBG Base Excess Anion Gap Estim Creat Clear Calc Estimated GFR Random Glucose Lactic Acid Calcium Magnesium Total Bilirubin Direct Bilirubin AST ALT Alkaline Phosphatase Ammonia Lactate Dehydrogenase Troponin I High Sens C-Reactive Protein B-Natriuretic Peptide Total Protein Albumin Procalcitonin TSH Urine Color Yellow Urine Appearance Clear Urine pH 6.0 Ur Specific [place] >= 1.030 H Urine Protein 30 (1+) H Urine Glucose (UA) >=1000 H Urine Ketones Negative Urine Blood Negative Urine Nitrite Negative Ur Leukocyte Esterase Negative Urine RBC 0-2 Urine WBC 0-5 Ur Squamous Epith Cells 0-2 Urine Bacteria None Seen Hyaline Casts 0-2 Urine Opiates Screen Not Detected Ur Buprenorphine Scrn Not Detected Ur Oxycodone Screen Not Detected Urine Methadone Screen Positive H Urine Fentanyl Screen Not Detected Ur Barbiturates Screen Not Detected Ur Phencyclidine Scrn Not Detected Ur Amphetamines Screen Not Detected U Benzodiazepines Scrn Not Detected Urine Cocaine Screen Not Detected U Marijuana (THC) Screen Not Detected Influenza Type A (PCR) Influenza Type B (PCR) RSV RNA Qual (PCR) SARS-CoV-2 RNA (RT-PCR) Imaging Radiologist's Impressions: Impressions Chest X-Ray 07/16/23 12:34 IMPRESSION: Congestive changes which appear worse. Abdomen/Pelvis CT 07/16/23 15:53 IMPRESSION: Limited due to motion. No acute findings. Fleischner guidelines were followed. Chest CT 07/16/23 15:53 IMPRESSION: Bilateral airways disease and bronchopneumonia, greatest in the lower lobes. Multiple bilateral rib fractures of varying ages. Old appearing compression fractures. Fleischner guidelines were followed. Head CT 07/16/23 15:53 IMPRESSION: Limited exam due to motion artifact. No acute findings and no change from May 2023 exam. Chest X-Ray 07/16/23 18:41 IMPRESSION: 1. There is pulmonary vascular congestion, without overt pulmonary edema. 2. There is mild bibasilar airspace disease. 3. Lung volumes are diminished. 4. Support tubes are positioned as above. Assessment and Plan (1) Acute on chronic respiratory failure with hypoxia and hypercapnia: Status: Acute (2) Pneumonia: Qualifiers: Laterality: bilateral Lung location: lower lobe of lung Pneumonia type: due to unspecified organism Qualified Code(s): J18.9 - Pneumonia, unspecified organism Status: Acute (3) Metabolic encephalopathy: Status: Acute Plan 53-year-old female with history of chronic hypoxic and hypercarbic respiratory failure on home O2 and BiPAP, asthma/ COPD overlap syndrome admitted for acute hypercapnic and hypoxic respiratory failure requiring mechanical ventilation. Neuro: No acute issues. Cardiac: chest x-ray with worsening congestive changes.? Will give Lasix? b.i.d.? Monitor for diuresing. Last echo on 04/08/2023 showed LVEF preserved. Indeterminate filling pressures. Mildly increased right ventricular cavity size. Normal right ventricular systolic function.? Pulmonary: Underlying asthma/COPD overlap. ?Acute hypoxic and hypercapnic respiratory failure, pneumonia requiring mechanical ventilation.? Titrate off as tolerated. Received systemic glucocorticoids,? nebulized bronchodilators, vancomycin, cefepime in ED. Continue antibiotics. History of Aspergillus [place] in the sputum December 2022.? Caspofungin.? Sputum culture. Renal: No acute issues.? Endo: No acute issues. SS insulin per protocol. GI: No acute issues.? ID: Leukocytosis,? possibly due to chronic steroid use or pneumonia.? Received antibiotics in ED. continue per HCAP. Heme/Onc: No acute issues.? Psych:? No acute issues. Miscellaneous:? No acute issues. Prophylaxis: ? heparin, PPI? Diet:? NPO Case discussed with attending Dr Childress. Total time managing care of this patient today: 60 minutes.
[2023-07-16] MEDS: Heparin Sodium,Porcine 5,000 UNIT/ML VIAL 5000 UNIT SUBCUT (21:00)
[2023-07-16] MEDS: Chlorhexidine Gluc Oral Rinse 15 ML MOUTHWASH BUCCAL (21:00)
[2023-07-16] MEDS: Furosemide 20 MG/2 ML VIAL IVPUSH (21:30)
[2023-07-16 21:52] LABS: VBG Base Excess 20.3 mmol/L; VBG HCO3 44 mmol/L (22-26); VBG pCO2 48 mmHg; VBG pH 7.57 (7.32-7.43); VBG pO2 58 mmHg
[2023-07-16 22:26] LABS: Venous Blood Gas Refer to POC result
[2023-07-16 22:41] LABS: Phosphorus 3.2 mg/dL (2.7-4.5)
[2023-07-16] MEDS: Caspofungin Acetate 70 MG in 0.9 % Sodium Chloride 250 ML 250 MG IV (23:56)
[2023-07-17] VITALS (37 sets, daily range): BP systolic 114–157; BP diastolic 62–93; PULSE 90–123; RESP 14–20; TEMP 31–37.4; O2SAT 81–100; BMI 41.6; BMI 41.7
[2023-07-17] MEDS: Albuterol/Iprat 2.5/0.5MG 3 ML AMPUL.NEB INHALE ×6 (00:04→21:29)
[2023-07-17 00:11] LABS: Glucose, Whole Blood 172 mg/dL (60-115)
[2023-07-17] MEDS: Midazolam HCl/PF 2 MG/2 ML VIAL IVPUSH ×4 (00:25→19:51)
[2023-07-17] MEDS: Insulin Lispro 100 UNIT/ML 3 ML VIAL SUBCUT ×4 (00:38→23:47)
[2023-07-17] MEDS: cefEPime HCl 2 GM in 0.9 % Sodium Chloride 50 ML IV ×2 (01:58→13:32)
[2023-07-17] MEDS: propofoL 1,000 MG/100 ML VIAL 30.12 MG IVCONT ×3 (02:03→08:50)
[2023-07-17] MEDS: fentaNYL citrate/NS 1,000 MCG/100 ML PLAST..BAG 12.5 MCG IVCONT ×3 (02:04→16:47)
[2023-07-17] MEDS: Pantoprazole Sodium 40 MG/10 ML VIAL IVPUSH (05:15)
[2023-07-17] MEDS: Chlorhexidine Gluc Oral Rinse 15 ML MOUTHWASH BUCCAL ×3 (05:15→20:00)
[2023-07-17] MEDS: Heparin Sodium,Porcine 5,000 UNIT/ML VIAL 5000 UNIT SUBCUT ×3 (05:15→20:00)
[2023-07-17 05:41] LABS: Venous Blood Gas Refer to POC result
[2023-07-17 05:47] LABS: VBG HCO3 39 mmol/L (22-26); VBG pCO2 35 mmHg; VBG pH 7.65 (7.32-7.43); VBG pO2 133 mmHg
[2023-07-17 05:48] LABS: Glucose, Whole Blood 107 mg/dL (60-115)
[2023-07-17 05:58] LABS: MANUAL DIFF FLAG NO
[2023-07-17 06:01] LABS: Basophils Percent Auto 0.3 % (0-2); Hematocrit 33.5 % (37.0-47.0); Hemoglobin 10.3 g/dl (12.0-16.0); Imm Gran Abs Auto 0.31 X10*3/uL (0.00-0.03); Lymphocytes Absolute Auto 0.5 X10*3/uL (1.2-4.9); Lymphocytes Percent Auto 4.9 % (20-40); Mean Corpuscular HGB Conc 30.7 g/dl (31.0-35.0); Mean Corpuscular Hemoglobin 30.2 pg (27.0-33.0); Mean Corpuscular Volume 98.2 fL (80.0-98.0); Monocytes Absolute Auto 0.7 X10*3/uL (0.1-1.2); Monocytes Percent Auto 6.7 % (2-11); NRBC Pct Auto 0.4 /100WBC (0.0-0.2); Neutrophils Percent Auto 85.1 % (45-73); Platelet Count 253 X10*3/uL (160-400); Red Blood Count 3.41 X10*6/uL (4.20-5.50); Red Cell Distribution Width 13.4 % (11.0-16.0); White Blood Count 10.5 X10*3/uL (4.8-10.8)
[2023-07-17 06:28] LABS: Albumin Level 3.3 g/dL (3.5-5.0); Anion Gap 15 (12-20); Blood Urea Nitrogen 19 mg/dL (9-16); Calcium 9.4 mg/dL (8.4-10.2); Carbon Dioxide 31 mmol/L (22-29); Chloride 96 mmol/L (96-108); Creatinine Clr Calc Pharmacy 120.9; Estimated Glomerular Filt Rate > 60; Glucose Random 100 mg/dL (60-115); Magnesium 1.8 mg/dL (1.6-2.6); Phosphorus 1.2 mg/dL (2.7-4.5); Potassium 3.3 mmol/L (3.3-5.1); Sodium 139 mmol/L (135-145)
[2023-07-17] MEDS: Potassium Phosphate/NS 15 MMOL/250 ML PLAST..BAG 62.5 MMOL IV ×2 (06:39→11:02)
[2023-07-17] MEDS: Potassium Chloride Packet 20 MEQ PACKET 40 MEQ PO (06:40)
[2023-07-17 07:26] LABS: ABG Base Excess 15.8 mmol/L; ABG HCO3 39 mmol/L (22-26); ABG pCO2 43 mmHg (32-45); ABG pH 7.56 (7.35-7.45); ABG pO2 43 mmHg (83-108)
[2023-07-17] MEDS: Furosemide 20 MG/2 ML VIAL IVPUSH ×2 (07:38→18:12)
--- NOTE | 2023-07-17 08:35 | P.PNCC_ITS ---
Subjective Subjective Date of Service: 07/17/23 Interval History: admitted 07/15 PM; intubated, hemodynamically stable Critical Care Time (minutes): 90 Physical Exam 2 Vital Signs: Vital Signs: Last Vital Signs Temp 99.4 F 07/17/23 02:00 Pulse 98 07/17/23 07:35 Resp 14 07/17/23 07:35 BP 133/82 07/17/23 07:38 Pulse Ox 89 L 07/17/23 07:00 O2 Del Method Mechanical Ventil ation 07/17/23 07:00 O2 Flow Rate 2 07/16/23 14:07 FiO2 30 07/17/23 07:35 Oxygen Flow Rate 2 07/16/23 10:35 BMI result Body Mass Index 41.7 Const: Other: intubated, sedated, though opens eyes, answers yes-no, follows commands; morbidly obese General: cooperative, comfortable, no acute distress, alert, awake and Physically active Orientation/consciousness: oriented to person HEENT: Head: Yes normal to inspection, Yes normocephalic and Yes atraumatic Eyes: General: appearance normal, both eyes and all related structures Neck: Neck: Yes normal visual inspection, Yes full ROM, Yes no meningeal signs and Yes supple Chest: Chest palpation & inspection: normal inspection of the chest Resp: Other: appreciable rales, rhonchi bilateral anterior lung matthews; no appreciable wheezing Effort & Inspection: normal respiratory effort Cardio: Rate: regular rate Rhythm: regular rhythm GI: Other: protuberent abdomen, though soft, compressible; no appreciable tenderness to palpation throughout Inspection: Yes normal to inspection, No Abdominal wall edema and Yes distended Palpation (GI): Soft to palpation, not firm, nontender, no guarding and not rigid : External Female Exam: normal external appearance Skin: General skin exam: no rashes or lesions noted Neuro: General: oriented to person, tone normal, moves all extremities, no meningeal signs and no focal motor deficits Extrem: Other: non-pitting edema throughout General: Yes normal to inspection, Yes full ROM and Yes capillary refill normal Psych: Appearance: grossly normal Objective Data Labs 07/17/23 05:35 07/17/23 05:35 Labs: Laboratory Results - last 24 hr 07/16/23 07/16/23 07/16/23 11:52 12:02 14:01 WBC 13.8 H RBC 3.79 L Hgb 11.5 L Hct 38.0 MCV 100.3 H MCH 30.3 MCHC 30.3 L RDW 14.1 Plt Count 309 MPV 9.1 L Immature Gran % (Auto) 1.7 H Neut % (Auto) 89.2 H Lymph % (Auto) 3.1 L [place] % (Auto) 5.5 Eos % (Auto) 0.1 Baso % (Auto) 0.4 Lymph # (Auto) 0.4 L [place] # (Auto) 0.8 Eos # (Auto) 0.0 Baso # (Auto) 0.1 Abs Immat Gran (auto) 0.24 H Absolute Neuts (auto) 12.3 H Absolute Nucleated RBC 0.000 Nucleated RBC % (auto) 0.0 ESR 82 H O2 Saturation ABG pH at Pt Temp ABG pCO2 at Pt Temp ABG pO2 at Pt Temp ABG HCO3 ABG Base Excess (Actual) VBG pH 7.52 H VBG pCO2 48 VBG pO2 166 VBG HCO3 39 H VBG O2 Saturation 99.0 VBG Base Excess 14.9 Sodium 139 Potassium 5.0 Chloride 92 L Carbon Dioxide 37 H Anion Gap 15 BUN 22 H Creatinine 0.70 Estim Creat Clear Calc 98.9 Estimated GFR > 60 POC Glucose Random Glucose 354 H* Lactic Acid 0.6 Calcium 9.5 Phosphorus Magnesium 2.2 Total Bilirubin 0.2 Direct Bilirubin < 0.2 AST 20 ALT 29 Alkaline Phosphatase 51 Ammonia Lactate Dehydrogenase 462 H Troponin I High Sens 10.0 C-Reactive Protein 10.74 H B-Natriuretic Peptide < 10 Total Protein 7.2 Albumin 3.9 Procalcitonin 0.08 TSH 0.22 L Urine Color Urine Appearance Urine pH Ur Specific [place] Urine Protein Urine Glucose (UA) Urine Ketones Urine Blood Urine Nitrite Ur Leukocyte Esterase Urine RBC Urine WBC Ur Squamous Epith Cells Urine Bacteria Hyaline Casts Urine Opiates Screen Ur Buprenorphine Scrn Ur Oxycodone Screen Urine Methadone Screen Urine Fentanyl Screen Ur Barbiturates Screen Ur Phencyclidine Scrn Ur Amphetamines Screen U Benzodiazepines Scrn Urine Cocaine Screen U Marijuana (THC) Screen Influenza Type A (PCR) NEGATIVE Influenza Type B (PCR) NEGATIVE RSV RNA Qual (PCR) NEGATIVE SARS-CoV-2 RNA (RT-PCR) NEGATIVE 07/16/23 07/16/23 07/16/23 14:03 14:04 16:00 WBC RBC Hgb Hct MCV MCH MCHC RDW Plt Count MPV Immature Gran % (Auto) Neut % (Auto) Lymph % (Auto) [place] % (Auto) Eos % (Auto) Baso % (Auto) Lymph # (Auto) [place] # (Auto) Eos # (Auto) Baso # (Auto) Abs Immat Gran (auto) Absolute Neuts (auto) Absolute Nucleated RBC Nucleated RBC % (auto) ESR O2 Saturation ABG pH at Pt Temp ABG pCO2 at Pt Temp ABG pO2 at Pt Temp ABG HCO3 ABG Base Excess (Actual) VBG pH 7.29 L VBG pCO2 90 VBG pO2 113 VBG HCO3 43 H VBG O2 Saturation 100.0 VBG Base Excess 13.2 Sodium Potassium Chloride Carbon Dioxide Anion Gap BUN Creatinine Estim Creat Clear Calc Estimated GFR POC Glucose Random Glucose Lactic Acid Calcium Phosphorus 3.2 Magnesium Total Bilirubin Direct Bilirubin AST ALT Alkaline Phosphatase Ammonia 48 Lactate Dehydrogenase Troponin I High Sens C-Reactive Protein B-Natriuretic Peptide Total Protein Albumin Procalcitonin TSH Urine Color Urine Appearance Urine pH Ur Specific [place] Urine Protein Urine Glucose (UA) Urine Ketones Urine Blood Urine Nitrite Ur Leukocyte Esterase Urine RBC Urine WBC Ur Squamous Epith Cells Urine Bacteria Hyaline Casts Urine Opiates Screen Ur Buprenorphine Scrn Ur Oxycodone Screen Urine Methadone Screen Urine Fentanyl Screen Ur Barbiturates Screen Ur Phencyclidine Scrn Ur Amphetamines Screen U Benzodiazepines Scrn Urine Cocaine Screen U Marijuana (THC) Screen Influenza Type A (PCR) Influenza Type B (PCR) RSV RNA Qual (PCR) SARS-CoV-2 RNA (RT-PCR) 07/16/23 07/16/23 07/16/23 16:41 16:48 21:44 WBC RBC Hgb Hct MCV MCH MCHC RDW Plt Count MPV Immature Gran % (Auto) Neut % (Auto) Lymph % (Auto) [place] % (Auto) Eos % (Auto) Baso % (Auto) Lymph # (Auto) [place] # (Auto) Eos # (Auto) Baso # (Auto) Abs Immat Gran (auto) Absolute Neuts (auto) Absolute Nucleated RBC Nucleated RBC % (auto) ESR O2 Saturation ABG pH at Pt Temp ABG pCO2 at Pt Temp ABG pO2 at Pt Temp ABG HCO3 ABG Base Excess (Actual) VBG pH 7.30 L 7.57 H VBG pCO2 89 48 VBG pO2 86 58 VBG HCO3 44 H 44 H VBG O2 Saturation 96.0 93.0 VBG Base Excess 14.2 20.3 Sodium Potassium Chloride Carbon Dioxide Anion Gap BUN Creatinine Estim Creat Clear Calc Estimated GFR POC Glucose Random Glucose Lactic Acid Calcium Phosphorus Magnesium Total Bilirubin Direct Bilirubin AST ALT Alkaline Phosphatase Ammonia Lactate Dehydrogenase Troponin I High Sens C-Reactive Protein B-Natriuretic Peptide Total Protein Albumin Procalcitonin TSH Urine Color Yellow Urine Appearance Clear Urine pH 6.0 Ur Specific [place] >= 1.030 H Urine Protein 30 (1+) H Urine Glucose (UA) >=1000 H Urine Ketones Negative Urine Blood Negative Urine Nitrite Negative Ur Leukocyte Esterase Negative Urine RBC 0-2 Urine WBC 0-5 Ur Squamous Epith Cells 0-2 Urine Bacteria None Seen Hyaline Casts 0-2 Urine Opiates Screen Not Detected Ur Buprenorphine Scrn Not Detected Ur Oxycodone Screen Not Detected Urine Methadone Screen Positive H Urine Fentanyl Screen Not Detected Ur Barbiturates Screen Not Detected Ur Phencyclidine Scrn Not Detected Ur Amphetamines Screen Not Detected U Benzodiazepines Scrn Not Detected Urine Cocaine Screen Not Detected U Marijuana (THC) Screen Not Detected Influenza Type A (PCR) Influenza Type B (PCR) RSV RNA Qual (PCR) SARS-CoV-2 RNA (RT-PCR) 07/17/23 07/17/23 07/17/23 00:06 05:35 05:37 WBC 10.5 RBC 3.41 L Hgb 10.3 L Hct 33.5 L MCV 98.2 H MCH 30.2 MCHC 30.7 L RDW 13.4 Plt Count 253 MPV 9.0 L Immature Gran % (Auto) 3.0 H Neut % (Auto) 85.1 H Lymph % (Auto) 4.9 L [place] % (Auto) 6.7 Eos % (Auto) 0.0 Baso % (Auto) 0.3 Lymph # (Auto) 0.5 L [place] # (Auto) 0.7 Eos # (Auto) 0.0 Baso # (Auto) 0.0 Abs Immat Gran (auto) 0.31 H Absolute Neuts (auto) 9.0 H Absolute Nucleated RBC 0.040 H Nucleated RBC % (auto) 0.4 H ESR O2 Saturation ABG pH at Pt Temp ABG pCO2 at Pt Temp ABG pO2 at Pt Temp ABG HCO3 ABG Base Excess (Actual) VBG pH 7.65 H* VBG pCO2 35 VBG pO2 133 VBG HCO3 39 H VBG O2 Saturation 99.0 VBG Base Excess 18.0 Sodium 139 Potassium 3.3 D Chloride 96 Carbon Dioxide 31 H Anion Gap 15 BUN 19 H Creatinine 0.56 Estim Creat Clear Calc 120.9 Estimated GFR > 60 POC Glucose 172 H Random Glucose 100 Lactic Acid Calcium 9.4 Phosphorus 1.2 L Magnesium 1.8 Total Bilirubin Direct Bilirubin AST ALT Alkaline Phosphatase Ammonia Lactate Dehydrogenase Troponin I High Sens C-Reactive Protein B-Natriuretic Peptide Total Protein Albumin 3.3 L Procalcitonin TSH Urine Color Urine Appearance Urine pH Ur Specific [place] Urine Protein Urine Glucose (UA) Urine Ketones Urine Blood Urine Nitrite Ur Leukocyte Esterase Urine RBC Urine WBC Ur Squamous Epith Cells Urine Bacteria Hyaline Casts Urine Opiates Screen Ur Buprenorphine Scrn Ur Oxycodone Screen Urine Methadone Screen Urine Fentanyl Screen Ur Barbiturates Screen Ur Phencyclidine Scrn Ur Amphetamines Screen U Benzodiazepines Scrn Urine Cocaine Screen U Marijuana (THC) Screen Influenza Type A (PCR) Influenza Type B (PCR) RSV RNA Qual (PCR) SARS-CoV-2 RNA (RT-PCR) 07/17/23 07/17/23 05:44 07:19 WBC RBC Hgb Hct MCV MCH MCHC RDW Plt Count MPV Immature Gran % (Auto) Neut % (Auto) Lymph % (Auto) [place] % (Auto) Eos % (Auto) Baso % (Auto) Lymph # (Auto) [place] # (Auto) Eos # (Auto) Baso # (Auto) Abs Immat Gran (auto) Absolute Neuts (auto) Absolute Nucleated RBC Nucleated RBC % (auto) ESR O2 Saturation 81.0 ABG pH at Pt Temp 7.56 H ABG pCO2 at Pt Temp 43 ABG pO2 at Pt Temp 43 L* ABG HCO3 39 H ABG Base Excess (Actual) 15.8 VBG pH VBG pCO2 VBG pO2 VBG HCO3 VBG O2 Saturation VBG Base Excess Sodium Potassium Chloride Carbon Dioxide Anion Gap BUN Creatinine Estim Creat Clear Calc Estimated GFR POC Glucose 107 Random Glucose Lactic Acid Calcium Phosphorus Magnesium Total Bilirubin Direct Bilirubin AST ALT Alkaline Phosphatase Ammonia Lactate Dehydrogenase Troponin I High Sens C-Reactive Protein B-Natriuretic Peptide Total Protein Albumin Procalcitonin TSH Urine Color Urine Appearance Urine pH Ur Specific [place] Urine Protein Urine Glucose (UA) Urine Ketones Urine Blood Urine Nitrite Ur Leukocyte Esterase Urine RBC Urine WBC Ur Squamous Epith Cells Urine Bacteria Hyaline Casts Urine Opiates Screen Ur Buprenorphine Scrn Ur Oxycodone Screen Urine Methadone Screen Urine Fentanyl Screen Ur Barbiturates Screen Ur Phencyclidine Scrn Ur Amphetamines Screen U Benzodiazepines Scrn Urine Cocaine Screen U Marijuana (THC) Screen Influenza Type A (PCR) Influenza Type B (PCR) RSV RNA Qual (PCR) SARS-CoV-2 RNA (RT-PCR) Progress Note: A&P Assessment and plan (1) Acute on chronic respiratory failure with hypoxia and hypercapnia: Status: Acute (2) Pneumonia: Status: Acute (3) COPD (chronic obstructive pulmonary disease): Status: Acute (4) Obesity hypoventilation syndrome: Status: Acute (5) CHITO (obstructive sleep apnea): Status: Acute Plan Patient is a 53 Y F w/ metabolic syndrome c/b morbid obesity, tobacco use, COPD, OHS, CHITO, c/b chronic mixed respiratory failure, and methadone use, reportedly on BiPAP PM, well-known to our institution, p/w headache, nausea, found to be in acute on chronic mixed respiratory failure, failed BiPAP, intubated N: encephalopathy, improving CV:?no acute issues; hypertension R: acute on chronic mixed respiratory failure, worsening despite BiPAP, intubated 07/15; duonebs, steroids, empiric antibiotics GI: NPO : no acute issues H: no acute issues; DVT prophylaxis w/ heparin SQ ID: c/f severe COPD exacerbation, CT C c/f bronchopneumonia, empiric antibiotics E: hyperglycemia; insulin glargine,?sliding?scale P: methadone use, to confirm dosing Quality Stroke Does the patient have a stroke diagnosis?: No VTE Prior VTE?: No VTE Risk Level:: Medical - moderate - high VTE Device Contraindication: N/A - Device Ordered VTE Drug Contraindication: N/A - Med Ordered
[2023-07-17] MEDS: Magnesium Sulfate/D5W 1 GM/100 ML PIGGYBACK IV (08:45)
[2023-07-17] MEDS: methylPREDNISolone Sod Succ 125 MG/2 ML VIAL 60 MG IVPUSH ×3 (08:52→19:54)
[2023-07-17 09:28] LABS: ABG Base Excess 14.1 mmol/L; ABG HCO3 37 mmol/L (22-26); ABG pCO2 42 mmHg (32-45); ABG pH 7.56 (7.35-7.45); ABG pO2 77 mmHg (83-108)
--- NOTE | 2023-07-17 09:45 | PC.RT ---
RT ran VBG and mistakenly ran results under ABG. Lab called and aware of mistake, stated they will attempt to fix. MD DO [facility] and MD aware of the mistake.
[2023-07-17 09:58] LABS: Vancomycin Random 11.9 mcg/mL (15-20)
[2023-07-17 10:40] LABS: Venous Blood Gas Refer to POC result
--- NOTE | 2023-07-17 10:40 | HE.PHANOTE ---
Addendum entered by Leticia Munoz [facility] 07/17/23 10:42: Predicted AUC 473, and predicted trough to be 12.8. Original Note: RAFA Fang: Pt received TWO loads in the ED. Random trough came back at 11.9. If dose of 1,000 Q12H was continued, they would be subtherapeutic. Dose increased to 1,250mg Q12H. Next trough to be drawn 07/17 at 21:00.
[2023-07-17 10:41] LABS: VBG Base Excess 12.1 mmol/L; VBG HCO3 38 mmol/L (22-26); VBG pCO2 60 mmHg; VBG pH 7.41 (7.32-7.43); VBG pO2 59 mmHg
[2023-07-17] MEDS: vancomycin HCL 1,250 MG in 0.9 % Sodium Chloride 250 ML 166.67 MG IV ×2 (11:02→23:02)
[2023-07-17 11:11] LABS: Venous Blood Gas Refer to POC result
[2023-07-17 11:33] LABS: ABG Refer to POC result
[2023-07-17 12:34] LABS: Glucose, Whole Blood 180 mg/dL (60-115)
--- NOTE | 2023-07-17 12:35 | MHC.CLN ---
RE: CONSULT PT IS INTUBATED AND SEDATED PT IS CURRENTLY NPO DISCUSSED AT ROUNDS WITH PT WITH CECILIA WADE; NO OPEN AREAS IF TF NEEDED; CONSULT RD MONITOR FOR DIET ADVANCEMENT FOLLOWING WITH TEAM SEE ALSO FULL CLINCAL NUTRITION ASSESSMENT
[2023-07-17] MEDS: propofoL 1,000 MG/100 ML VIAL 18.07 MG IVCONT ×2 (13:17→22:56)
--- NOTE | 2023-07-17 14:16 | MHC.CM.PN ---
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 [facility] uses a walker [facility] Family assists w/transportation. Pt will likely be able to return to home and resume current care regimine. HCP on file and verified. CM to follow for finalization of d/c needs.
--- NOTE | 2023-07-17 14:21 | MHC.CM.PN ---
Pt is presently intubated in ICU for respiratory distress: Information obtained from EMR and discussion w/pt's dtr via phone call. 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 Pt uses a walker and is active with [facility] for home O2. Family assists w/transportation. Pt will likely be able to return to home and resume current care regimine. HCP on file and verified. CM to follow for finalization of d/c needs.
[2023-07-17 18:03] LABS: Glucose, Whole Blood 261 mg/dL (60-115)
[2023-07-17 18:15] LABS: VBG Base Excess 13.3 mmol/L; VBG HCO3 36 mmol/L (22-26); VBG pCO2 41 mmHg; VBG pH 7.55 (7.32-7.43); VBG pO2 180 mmHg
[2023-07-17] MEDS: HYDROmorphone HCl 0.5 MG/0.5 ML SYRINGE IVPUSH (20:49)
[2023-07-17 22:37] LABS: Venous Blood Gas Refer to POC result
[2023-07-17 23:18] LABS: Glucose, Whole Blood 222 mg/dL (60-115)
[2023-07-18] VITALS (44 sets, daily range): BP systolic 131–193; BP diastolic 68–103; PULSE 14–135; RESP 12–32; TEMP 32–36.9; O2SAT 87–99; BMI 40.8; BMI 41.0
[2023-07-18 00:21] LABS: VBG HCO3 43 mmol/L (22-26); VBG pCO2 49 mmHg; VBG pH 7.55 (7.32-7.43); VBG pO2 66 mmHg
[2023-07-18] MEDS: fentaNYL citrate/NS 1,000 MCG/100 ML PLAST..BAG 12.5 MCG IVCONT ×2 (00:33→08:09)
[2023-07-18] MEDS: Albuterol/Iprat 2.5/0.5MG 3 ML AMPUL.NEB INHALE ×6 (00:34→20:46)
[2023-07-18 00:57] LABS: Venous Blood Gas Refer to POC result
[2023-07-18] MEDS: cefEPime HCl 2 GM in 0.9 % Sodium Chloride 50 ML IV ×2 (01:56→14:31)
[2023-07-18] MEDS: methylPREDNISolone Sod Succ 125 MG/2 ML VIAL 60 MG IVPUSH ×4 (02:22→20:01)
[2023-07-18] MEDS: propofoL 1,000 MG/100 ML VIAL 24.1 MG IVCONT ×2 (02:33→06:35)
[2023-07-18 04:50] LABS: VBG Base Excess 16.2 mmol/L; VBG HCO3 41 mmol/L (22-26); VBG pCO2 54 mmHg; VBG pH 7.49 (7.32-7.43); VBG pO2 63 mmHg; Venous Blood Gas Refer to POC result
[2023-07-18 04:58] LABS: Basophils Absolute Auto 0.1 X10*3/uL (0.0-0.2); Basophils Percent Auto 0.3 % (0-2); Hematocrit 34.5 % (37.0-47.0); Hemoglobin 10.9 g/dl (12.0-16.0); Imm Gran Abs Auto 0.34 X10*3/uL (0.00-0.03); Imm Gran Pct Auto 2.3 % (0.0-0.4); Lymphocytes Absolute Auto 0.3 X10*3/uL (1.2-4.9); Lymphocytes Percent Auto 1.8 % (20-40); MANUAL DIFF FLAG SCAN; Mean Corpuscular HGB Conc 31.6 g/dl (31.0-35.0); Mean Corpuscular Hemoglobin 30.4 pg (27.0-33.0); Mean Corpuscular Volume 96.1 fL (80.0-98.0); Mean Platelet Volume 8.9 fL (9.4-12.3); Monocytes Absolute Auto 0.5 X10*3/uL (0.1-1.2); Monocytes Percent Auto 3.7 % (2-11); NRBC Pct Auto 0.3 /100WBC (0.0-0.2); Neutrophils Absolute Auto 13.5 x10*3/uL (2.0-8.3); Neutrophils Percent Auto 91.9 % (45-73); Platelet Count 277 X10*3/uL (160-400); Red Blood Count 3.59 X10*6/uL (4.20-5.50); Red Cell Distribution Width 13.3 % (11.0-16.0); SCAN SMEAR FLAG 1; White Blood Count 14.7 X10*3/uL (4.8-10.8)
[2023-07-18 05:14] LABS: Anion Gap 18 (12-20); Blood Urea Nitrogen 20 mg/dL (9-16); Calcium 9.8 mg/dL (8.4-10.2); Carbon Dioxide 33 mmol/L (22-29); Chloride 95 mmol/L (96-108); Creatinine Clr Calc Pharmacy 114.9; Estimated Glomerular Filt Rate > 60; Glucose Random 227 mg/dL (60-115); Magnesium 1.7 mg/dL (1.6-2.6); Phosphorus 3.2 mg/dL (2.7-4.5); Potassium 3.7 mmol/L (3.3-5.1); Sodium 142 mmol/L (135-145)
[2023-07-18 05:22] LABS: SLIDE REVIEW VERIFIED
[2023-07-18] MEDS: Chlorhexidine Gluc Oral Rinse 15 ML MOUTHWASH BUCCAL (05:26)
[2023-07-18] MEDS: Midazolam HCl/PF 2 MG/2 ML VIAL IVPUSH (05:26)
[2023-07-18] MEDS: Heparin Sodium,Porcine 5,000 UNIT/ML VIAL 5000 UNIT SUBCUT ×3 (05:27→20:01)
[2023-07-18] MEDS: Insulin Lispro 100 UNIT/ML 3 ML VIAL SUBCUT ×4 (05:28→18:22)
[2023-07-18] MEDS: dilTIAZem HCL 50 MG/10 ML VIAL IVPUSH ×5 (05:55→19:54)
[2023-07-18] MEDS: Pantoprazole Sodium 40 MG/10 ML VIAL IVPUSH (05:55)
[2023-07-18] MEDS: Furosemide 20 MG/2 ML VIAL IVPUSH ×2 (08:09→18:00)
--- NOTE | 2023-07-18 08:16 | P.PNCC_ITS ---
Subjective Subjective Date of Service: 07/18/23 Interval History: no significant overnight events Critical Care Time (minutes): 60 Physical Exam 2 Vital Signs: Vital Signs: Last Vital Signs Temp 98.5 F 07/18/23 08:00 Pulse 118 H 07/18/23 08:00 Resp 16 07/18/23 08:00 BP 143/80 H 07/18/23 08:09 Pulse Ox 88 L 07/18/23 08:00 O2 Del Method Mechanical Ventil ation 07/18/23 08:00 O2 Flow Rate 2 07/16/23 14:07 FiO2 30 07/18/23 08:00 Oxygen Flow Rate 2 07/16/23 10:35 BMI result Body Mass Index 41.0 Const: Other: morbidly obese General: cooperative, healthy appearing, comfortable, no acute distress, alert, awake and Physically active Orientation/consciousness: oriented to person and oriented to place HEENT: Head: Yes normal to inspection, Yes normocephalic and Yes atraumatic Eyes: General: appearance normal, both eyes and all related structures Neck: Neck: Yes normal visual inspection, Yes full ROM and Yes supple Chest: Chest palpation & inspection: normal inspection of the chest Resp: Other: appreciable rhonchi, L greater than R; no appreciable rales, wheezing Cardio: Rate: tachycardic Rhythm: regular rhythm GI: Other: protuberant, though soft, compressible Inspection: Yes normal to inspection and No Abdominal wall edema P alpation (GI): Soft to palpation, not firm, nontender, no guarding and not rigid Skin: General skin exam: no rashes or lesions noted Neuro: General: oriented to person, oriented to place, tone normal, moves all extremities and no focal motor deficits Extrem: General: Yes normal to inspection, Yes full ROM, Yes capillary refill normal and Yes no clubbing, cyanosis or edema Psych: Appearance: grossly normal Objective Data Labs 07/18/23 04:36 07/18/23 04:36 Labs: Laboratory Results - last 24 hr 07/17/23 07/17/23 07/17/23 09:20 09:22 10:35 WBC RBC Hgb Hct MCV MCH MCHC RDW Plt Count MPV Immature Gran % (Auto) Neut % (Auto) Lymph % (Auto) [place] % (Auto) Eos % (Auto) Baso % (Auto) Lymph # (Auto) [place] # (Auto) Eos # (Auto) Baso # (Auto) Abs Immat Gran (auto) Absolute Neuts (auto) Absolute Nucleated RBC Nucleated RBC % (auto) Smear Tech's Comments Hold Purple Top SEE NOTE O2 Saturation 97.0 ABG pH at Pt Temp 7.56 H ABG pCO2 at Pt Temp 42 ABG pO2 at Pt Temp 77 L ABG HCO3 37 H ABG Base Excess (Actual) 14.1 VBG pH 7.41 VBG pCO2 60 VBG pO2 59 VBG HCO3 38 H VBG O2 Saturation 88.0 VBG Base Excess 12.1 Sodium Potassium Chloride Carbon Dioxide Anion Gap BUN Creatinine Estim Creat Clear Calc Estimated GFR POC Glucose Random Glucose Calcium Phosphorus Magnesium Random Vancomycin 11.9 L 07/17/23 07/17/23 07/17/23 12:30 17:56 18:06 WBC RBC Hgb Hct MCV MCH MCHC RDW Plt Count MPV Immature Gran % (Auto) Neut % (Auto) Lymph % (Auto) [place] % (Auto) Eos % (Auto) Baso % (Auto) Lymph # (Auto) [place] # (Auto) Eos # (Auto) Baso # (Auto) Abs Immat Gran (auto) Absolute Neuts (auto) Absolute Nucleated RBC Nucleated RBC % (auto) Smear Tech's Comments Hold Purple Top O2 Saturation ABG pH at Pt Temp ABG pCO2 at Pt Temp ABG pO2 at Pt Temp ABG HCO3 ABG Base Excess (Actual) VBG pH 7.55 H VBG pCO2 41 VBG pO2 180 VBG HCO3 36 H VBG O2 Saturation 100.0 VBG Base Excess 13.3 Sodium Potassium Chloride Carbon Dioxide Anion Gap BUN Creatinine Estim Creat Clear Calc Estimated GFR POC Glucose 180 H 261 H Random Glucose Calcium Phosphorus Magnesium Random Vancomycin 07/17/23 07/18/23 07/18/23 23:15 00:13 04:36 WBC 14.7 H RBC 3.59 L Hgb 10.9 L Hct 34.5 L MCV 96.1 MCH 30.4 MCHC 31.6 RDW 13.3 Plt Count 277 MPV 8.9 L Immature Gran % (Auto) 2.3 H Neut % (Auto) 91.9 H Lymph % (Auto) 1.8 L [place] % (Auto) 3.7 Eos % (Auto) 0.0 Baso % (Auto) 0.3 Lymph # (Auto) 0.3 L [place] # (Auto) 0.5 Eos # (Auto) 0.0 Baso # (Auto) 0.1 Abs Immat Gran (auto) 0.34 H Absolute Neuts (auto) 13.5 H Absolute Nucleated RBC 0.040 H Nucleated RBC % (auto) 0.3 H Smear Tech's Comments VERIFIED Hold Purple Top O2 Saturation ABG pH at Pt Temp ABG pCO2 at Pt Temp ABG pO2 at Pt Temp ABG HCO3 ABG Base Excess (Actual) VBG pH 7.55 H VBG pCO2 49 VBG pO2 66 VBG HCO3 43 H VBG O2 Saturation 93.0 VBG Base Excess 19.0 Sodium 142 Potassium 3.7 Chloride 95 L Carbon Dioxide 33 H Anion Gap 18 BUN 20 H Creatinine 0.59 Estim Creat Clear Calc 114.9 Estimated GFR > 60 POC Glucose 222 H Random Glucose 227 H Calcium 9.8 Phosphorus 3.2 Magnesium 1.7 Random Vancomycin 07/18/23 04:40 WBC RBC Hgb Hct MCV MCH MCHC RDW Plt Count MPV Immature Gran % (Auto) Neut % (Auto) Lymph % (Auto) [place] % (Auto) Eos % (Auto) Baso % (Auto) Lymph # (Auto) [place] # (Auto) Eos # (Auto) Baso # (Auto) Abs Immat Gran (auto) Absolute Neuts (auto) Absolute Nucleated RBC Nucleated RBC % (auto) Smear Tech's Comments Hold Purple Top O2 Saturation ABG pH at Pt Temp ABG pCO2 at Pt Temp ABG pO2 at Pt Temp ABG HCO3 ABG Base Excess (Actual) VBG pH 7.49 H VBG pCO2 54 VBG pO2 63 VBG HCO3 41 H VBG O2 Saturation 91.0 VBG Base Excess 16.2 Sodium Potassium Chloride Carbon Dioxide Anion Gap BUN Creatinine Estim Creat Clear Calc Estimated GFR POC Glucose Random Glucose Calcium Phosphorus Magnesium Random Vancomycin Microbiology Microbiology Results: Microbiology 07/16/23 11:52 Blood - Venous Blood Culture - Preliminary No growth after 24 hours. 07/16/23 11:52 Blood - Venous Blood Culture - Preliminary No growth after 24 hours. 07/16/23 21:39 Sputum - Suctioned Gram Stain - Final 07/16/23 21:39 Sputum - Suctioned Sputum Culture - Preliminary No growth to date. Progress Note: A&P Assessment and plan (1) Acute on chronic respiratory failure with hypoxia and hypercapnia: Status: Acute (2) Pneumonia: Status: Acute (3) COPD (chronic obstructive pulmonary disease): Status: Acute (4) Obesity hypoventilation syndrome: Status: Acute (5) CHITO (obstructive sleep apnea): Status: Acute (6) Tobacco abuse: Status: Acute Plan Patient is a 53 Y F w/ metabolic syndrome c/b morbid obesity, tobacco use, COPD, OHS, CHITO, c/b chronic mixed respiratory failure, and methadone use, reportedly on BiPAP PM, well-known to our institution, p/w headache, nausea, found to be in acute on chronic mixed respiratory failure, failed BiPAP, intubated N: encephalopathy, likely toxic-metabolic; resolved CV:?no acute issues; hypertension R: acute on chronic mixed respiratory failure, worsening despite BiPAP, intubated 07/15; duonebs, steroids, empiric antibiotics GI: NPO : no acute issues H: no acute issues; DVT prophylaxis w/ heparin SQ ID: c/f severe COPD exacerbation, CT C c/f bronchopneumonia, empiric antibiotics E: hyperglycemia; insulin glargine,?sliding?scale P: methadone use, to confirm dosing Quality Stroke Does the patient have a stroke diagnosis?: No VTE Prior VTE?: No VTE Risk Level:: Medical - moderate - high VTE Device Contraindication: N/A - Device Ordered VTE Drug Contraindication: N/A - Med Ordered
--- NOTE | 2023-07-18 10:08 | MHC.CM.PN ---
Pt able to extubate onto bipap support: plans to keep pt in ICU over the weekend and transfer to the floor if she remains stable. Pt has [employer] [employer] services at home as well as [facility] for home O2. CM to follow for changes in d/c plan
--- NOTE | 2023-07-18 10:13 | MHC.CLN ---
F/U DISCUSSED AT ROUNDS WITH PT IS CURRENTLY NPO TO REMAIN NPO -POSSIBLE DIET ADVANCEMENT THIS PM FOLLOWING WITH TEAM MONITOR FOR DIET ADVANCEMENT RD CAN BE REACHED VIA [email or web address] CONNECT DURING OFF HOURS IF NEEDED
[2023-07-18] MEDS: hydrALAZINE HCl 20 MG/ML VIAL 10 MG IVPUSH ×2 (10:22→18:05)
[2023-07-18] MEDS: vancomycin HCL 1,250 MG in 0.9 % Sodium Chloride 250 ML 166.67 MG IV (11:35)
[2023-07-18 11:55] LABS: Glucose, Whole Blood 295 mg/dL (60-115)
[2023-07-18] MEDS: methADONE HCl 20 MG/2 ML ORAL.CONC 50 MG PO (13:15)
--- NOTE | 2023-07-18 13:48 | MHC.SL.SWA ---
Speech Pathologist Impression: Risk of Aspiration Due to: Medically Fragile Hx of Recent Extubation Weak Voice Dysphasia Diet Status: Liquid Consistency and Strategies for Safe Swallow: Liquid Intake Recommendation: Martha Thick Liquid Intake Strategies: Small Sips No Straws Solid Food Consistency: Dietary Recommendations: Chopped/Advanced (NDD3) Additional Modifications to Solid Foods: Oral Medication Intake: Whole with Puree Please contact the pharmacy regarding appropriate crushable or liquid drug formulations that are available whenever modified delivery is recommended. Compensatory Strategies and Precautions to be Taken for Safe Swallow: Sitting Upright (90 deg) No Straw Liquids from Wide Cup Small Bites and Sips Alternate Liquids/Solids Rate of Ingestion Change Supervision While Eating and Drinking for Safe Swallow: Intermittent Supervision Foods to Avoid: Mixed consistencies. Swallowing Recommended Treatments: Compens. Strategy Educat. Recommendation for Speech: Inpatient Speech Therapy Comment: Recommend START diet of CHOPPED/ADVANCED SOLIDS (NDD3) and NECTAR-THICK LIQUIDS. MEDS WHOLE with PUREE. Ensure optimal positioning with all PO. ALLIED HEALTH TEACHER will continue to follow for upgrade. Frequency/Duration: Daily Date Range for Service Req: Timeline to reassess: PRN Med Spec Clinican/Clinical Fellow: No Supervisory Statement: I have reviewed and agree with the student/clinical fellow's documentation: N/A Speech Language Pathologist: Christopher Alexandra M.A., CCC-ALLIED HEALTH TEACHER
[2023-07-18 17:22] LABS: Glucose, Whole Blood 376 mg/dL (60-115)
[2023-07-18 20:54] LABS: Glucose, Whole Blood 241 mg/dL (60-115)
[2023-07-18] MEDS: Atorvastatin Calcium 20 MG TABLET PO (21:32)
[2023-07-18] MEDS: Insulin Glargine,Hum.rec.anlog 100 UNIT/ML 10 ML VIAL 25 UNIT SUBCUT (21:32)
[2023-07-18] MEDS: clonazePAM 1 MG TABLET PO (21:32)
[2023-07-18 22:07] LABS: Vancomycin Random 8.7 mcg/mL (15-20)
[2023-07-19] VITALS (28 sets, daily range): BP systolic 142–176; BP diastolic 79–104; PULSE 101–139; RESP 16–25; TEMP 32.2–36.7; O2SAT 90–96; BMI 40.9; BMI 40.3
[2023-07-19] MEDS: Albuterol/Iprat 2.5/0.5MG 3 ML AMPUL.NEB INHALE ×4 (00:06→23:21)
[2023-07-19 00:16] LABS: Glucose, Whole Blood 289 mg/dL (60-115)
[2023-07-19] MEDS: vancomycin HCL 1,250 MG in 0.9 % Sodium Chloride 250 ML 166.67 MG IV ×3 (00:20→15:50)
[2023-07-19] MEDS: Insulin Lispro 100 UNIT/ML 3 ML VIAL SUBCUT ×7 (00:23→21:40)
[2023-07-19] MEDS: methylPREDNISolone Sod Succ 125 MG/2 ML VIAL 60 MG IVPUSH ×3 (01:52→15:05)
[2023-07-19] MEDS: cefEPime HCl 2 GM in 0.9 % Sodium Chloride 50 ML IV ×2 (01:52→15:03)
[2023-07-19] MEDS: dilTIAZem HCL 50 MG/10 ML VIAL IVPUSH (03:20)
[2023-07-19 05:58] LABS: Glucose, Whole Blood 258 mg/dL (60-115)
[2023-07-19] MEDS: Pantoprazole Sodium 40 MG/10 ML VIAL IVPUSH (06:03)
[2023-07-19] MEDS: Heparin Sodium,Porcine 5,000 UNIT/ML VIAL 5000 UNIT SUBCUT ×3 (06:03→21:42)
[2023-07-19 07:50] LABS: Hematocrit 40.3 % (37.0-47.0); Hemoglobin 12.8 g/dl (12.0-16.0); Mean Corpuscular HGB Conc 31.8 g/dl (31.0-35.0); Mean Corpuscular Volume 94.6 fL (80.0-98.0); NRBC Pct Auto 0.4 /100WBC (0.0-0.2); Platelet Count 281 X10*3/uL (160-400); Red Blood Count 4.26 X10*6/uL (4.20-5.50); Red Cell Distribution Width 13.4 % (11.0-16.0); Venous Blood Gas Refer to POC result; White Blood Count 17.9 X10*3/uL (4.8-10.8)
[2023-07-19 07:53] LABS: VBG Base Excess 19.2 mmol/L; VBG HCO3 44 mmol/L (22-26); VBG pCO2 50 mmHg; VBG pH 7.55 (7.32-7.43); VBG pO2 71 mmHg
[2023-07-19] MEDS: Furosemide 20 MG/2 ML VIAL IVPUSH ×2 (07:54→16:51)
[2023-07-19 08:02] LABS: Anion Gap 18 (12-20); Blood Urea Nitrogen 31 mg/dL (9-16); Calcium 10.3 mg/dL (8.4-10.2); Carbon Dioxide 35 mmol/L (22-29); Chloride 94 mmol/L (96-108); Creatinine Clr Calc Pharmacy 101.6; Estimated Glomerular Filt Rate > 60; Glucose Random 302 mg/dL (60-115); Magnesium 1.8 mg/dL (1.6-2.6); Phosphorus 3.7 mg/dL (2.7-4.5); Potassium 3.4 mmol/L (3.3-5.1); Sodium 144 mmol/L (135-145)
[2023-07-19] MEDS: methADONE HCl 20 MG/2 ML ORAL.CONC 50 MG PO (08:07)
[2023-07-19] MEDS: azaTHIOprine 50 MG TABLET 100 MG PO (08:07)
[2023-07-19] MEDS: dilTIAZem HCL CD 180 MG CAP.ER.24H 360 MG PO (08:08)
[2023-07-19] MEDS: hydrALAZINE HCl 25 MG TABLET PO ×3 (08:08→16:51)
[2023-07-19] MEDS: lamoTRIgine 25 MG TABLET 150 MG PO ×2 (08:08→21:37)
[2023-07-19 08:09] LABS: Atypical Lymph Absolute Manual 0.2 x10*3/uL; Atypical Lymphs Percent Manual 1 % (0-6); Band Neutrophils Percent 9 % (3-5); Lymphocytes Absolute Manual 0.5 X10*3/uL (1.2-4.9); Lymphocytes Percent Manual 3 % (20-40); Metamyelocytes Absolute 0.2 X10*3/uL; Metamyelocytes Percent 1 %; Monocytes Absolute Manual 0.4 X10*3/uL (0.1-1.2); Monocytes Percent Manual 2 % (2-11); Neutrophils Absolute Manual 16.6 X10*3/uL (2.0-8.3); Neutrophils Percent Manual 84 % (45-73)
[2023-07-19] MEDS: Folic Acid 1 MG TABLET PO (08:09)
--- NOTE | 2023-07-19 08:10 | P.PNCC_ITS ---
Subjective Subjective Date of Service: 07/19/23 Interval History: no significant overnight events Critical Care Time (minutes): 60 Physical Exam 2 Vital Signs: Vital Signs: Last Vital Signs Temp 97.4 F 07/19/23 07:00 Pulse 116 H 07/19/23 08:00 Resp 18 07/19/23 08:00 BP 173/104 H 07/19/23 08:00 Pulse Ox 96 07/19/23 08:00 O2 Del Method BiPAP 07/19/23 08:00 O2 Flow Rate 2 07/18/23 19:00 FiO2 30 07/19/23 08:00 Oxygen Flow Rate 2 07/16/23 10:35 BMI result Body Mass Index 40.9 Const: General: cooperative, healthy appearing, comfortable, no acute distress, well developed, alert, awake and Physically active O rientation/consciousness: patient oriented x3 HEENT: Head: Yes normal to inspection, Yes normocephalic and Yes atraumatic Eyes: General: appearance normal, both eyes and all related structures Neck: Neck: Yes normal visual inspection, Yes full ROM, Yes no meningeal signs and Yes supple Chest: Chest palpation & inspection: normal inspection of the chest Resp: Other: mild end-expiratory wheezing; no appreciable rales, rhonchi Cardio: Rate: regular rate Rhythm: regular rhythm GI: Inspection: Yes normal to inspection, No Abdominal wall edema and No distended Palpation (GI): Soft to palpation, not firm, nontender, no guarding and not rigid Skin: General skin exam: no rashes or lesions noted Neuro: General: patient oriented x3, tone normal, moves all extremities, no meningeal signs and no focal motor deficits Extrem: General: Yes normal to inspection, Yes full ROM, Yes capillary refill normal and Yes no clubbing, cyanosis or edema Psych: Appearance: grossly normal Objective Data Labs 07/19/23 07:42 07/19/23 07:42 Labs: Laboratory Results - last 24 hr 07/18/23 07/18/23 07/18/23 11:49 17:18 20:50 WBC RBC Hgb Hct MCV MCH MCHC RDW Plt Count MPV Immature Gran % (Auto) Neut % (Auto) Lymph % (Auto) [place] % (Auto) Eos % (Auto) Baso % (Auto) Lymph # (Auto) [place] # (Auto) Eos # (Auto) Baso # (Auto) Abs Immat Gran (auto) Absolute Neuts (auto) Absolute Nucleated RBC Nucleated RBC % (auto) VBG pH VBG pCO2 VBG pO2 VBG HCO3 VBG O2 Saturation VBG Base Excess Sodium Potassium Chloride Carbon Dioxide Anion Gap BUN Creatinine Estim Creat Clear Calc Estimated GFR POC Glucose 295 H 376 H* 241 H Random Glucose Calcium Phosphorus Magnesium Random Vancomycin 07/18/23 07/19/23 07/19/23 21:16 00:04 05:53 WBC RBC Hgb Hct MCV MCH MCHC RDW Plt Count MPV Immature Gran % (Auto) Neut % (Auto) Lymph % (Auto) [place] % (Auto) Eos % (Auto) Baso % (Auto) Lymph # (Auto) [place] # (Auto) Eos # (Auto) Baso # (Auto) Abs Immat Gran (auto) Absolute Neuts (auto) Absolute Nucleated RBC Nucleated RBC % (auto) VBG pH VBG pCO2 VBG pO2 VBG HCO3 VBG O2 Saturation VBG Base Excess Sodium Potassium Chloride Carbon Dioxide Anion Gap BUN Creatinine Estim Creat Clear Calc Estimated GFR POC Glucose 289 H 258 H Random Glucose Calcium Phosphorus Magnesium Random Vancomycin 8.7 L 07/19/23 07/19/23 07:42 07:45 WBC 17.9 H RBC 4.26 Hgb 12.8 Hct 40.3 MCV 94.6 MCH 30.0 MCHC 31.8 RDW 13.4 Plt Count 281 MPV 9.0 L Immature Gran % (Auto) Cancelled Neut % (Auto) Cancelled Lymph % (Auto) Cancelled [place] % (Auto) Cancelled Eos % (Auto) Cancelled Baso % (Auto) Cancelled Lymph # (Auto) Cancelled [place] # (Auto) Cancelled Eos # (Auto) Cancelled Baso # (Auto) Cancelled Abs Immat Gran (auto) Cancelled Absolute Neuts (auto) Cancelled Absolute Nucleated RBC 0.070 H Nucleated RBC % (auto) 0.4 H VBG pH 7.55 H VBG pCO2 50 VBG pO2 71 VBG HCO3 44 H VBG O2 Saturation 95.0 VBG Base Excess 19.2 Sodium 144 Potassium 3.4 Chloride 94 L Carbon Dioxide 35 H Anion Gap 18 BUN 31 H Creatinine 0.66 Estim Creat Clear Calc 101.6 Estimated GFR > 60 POC Glucose Random Glucose 302 H Calcium 10.3 H Phosphorus 3.7 Magnesium 1.8 Random Vancomycin Microbiology Microbiology Results: Microbiology 07/16/23 11:52 Blood - Venous Blood Culture - Preliminary No growth after 48 hours. 07/16/23 11:52 Blood - Venous Blood Culture - Preliminary No growth after 48 hours. 07/16/23 21:39 Sputum - Suctioned Gram Stain - Final 07/16/23 21:39 Sputum - Suctioned Sputum Culture - Preliminary Culture in progress. Progress Note: A&P Assessment and plan (1) Acute on chronic respiratory failure with hypoxia and hypercapnia: Status: Acute (2) Pneumonia: Status: Acute (3) COPD (chronic obstructive pulmonary disease): Status: Acute (4) CHITO (obstructive sleep apnea): Status: Acute (5) Obesity hypoventilation syndrome: Status: Acute (6) Tobacco abuse: Status: Acute Plan Patient is a 53 Y F w/ metabolic syndrome c/b morbid obesity, tobacco use, COPD, OHS, CHITO, c/b chronic mixed respiratory failure, and methadone use, reportedly on BiPAP PM, well-known to our institution, p/w headache, nausea, found to be in acute on chronic mixed respiratory failure, failed BiPAP, intubated, extubated N: no acute issues CV:?no acute issues; hypertension R: acute on chronic mixed respiratory failure, worsening despite BiPAP, intubated 07/15, extubated 07/17; duonebs, steroids, empiric antibiotics; home regimen: BiPAP PM and naps GI: regular diet : no acute issues H: no acute issues; DVT prophylaxis w/ heparin SQ ID: c/f severe COPD exacerbation, CT C c/f bronchopneumonia, empiric antibiotics E: hyperglycemia; insulin glargine,?sliding?scale P: no acute issues; home methadone Quality Stroke Does the patient have a stroke diagnosis?: No VTE Prior VTE?: No VTE Risk Level:: Medical - moderate - high VTE Device Contraindication: N/A - Device Ordered VTE Drug Contraindication: N/A - Med Ordered
[2023-07-19 08:11] LABS: Platelet Estimate NORMAL (NORMAL); Platelet Morphology Comment NORMAL; Polychromasia 1+ (0-2) /OIF; RBC Morphology NOTED; Toxic Vacuolation PRESENT
[2023-07-19 12:07] LABS: Glucose, Whole Blood 528 mg/dL (60-115)
[2023-07-19 12:07] LABS: Glucose, Whole Blood 530 mg/dL (60-115)
[2023-07-19] MEDS: Insulin Lispro 100 UNIT/ML 3 ML VIAL 10 UNIT SUBCUT (12:19)
--- NOTE | 2023-07-19 14:21 | P.EN_ITS ---
Event Note Date of Service: 07/19/23 Event Note: 53 year old female with history of chronic hypoxic and hypercarbic respiratory failure on 2 L nasal cannula and BiPAP at night, CHITO/OHS/asthma/COPD overlap, chronic methadone use, diabetes, recurrent admissions for respiratory failure who was brought in by ambulance for headache and nausea found to be hypoxic, placed on BiPAP but failed to improve and was ultimately intubated in the emergency department on July 15 and transferred to the ICU for further care. T reated for bronchopneumonia with vancomycin/cefepime and COPD exacerbation with steroids and breathing treatments. Extubated July 17 and downgraded to the medical floor July 18. Acute on chronic hypercarbic and hypoxic respiratory failure Multifactorial due to COPD exacerbation, bronchopneumonia, obesity hypoventilation,HFpEF Continue cefepime, vanco Continue Solu-Medrol, wean to q8h Continue scheduled breathing treatments Continue IV Lasix Continue BiPAP q.h.s. Continue supplemental oxygen, 2 L at baseline Bronchopneumonia Continue antibiotics as above Blood cultures negative Sputum culture growing Haemophilus influenzae MRSA nares- if negative will stop vanco Diabetes with hyperglycemia due to steroids Was on regular diet, will change to diabetic diet Continue home dose of Lantus Continue sliding scale, follow-up point of care sugars OUD Continue methadone Morbid obesity BMI 40 Weight loss and diet modification recommended Mood continue home medications Hypertension Continue home medications Time Spent With Patient Time: Total time managing care of this patient today ____ minutes.
[2023-07-19 15:29] LABS: B Type Natriuretic Peptide 127 pg/mL (<100)
[2023-07-19 16:09] LABS: Glucose, Whole Blood 326 mg/dL (60-115)
[2023-07-19 20:17] LABS: Glucose, Whole Blood 294 mg/dL (60-115)
[2023-07-19] MEDS: Albuterol Sulfate (0.083%) 2.5 MG/3 ML VIAL.NEB 5 MG INHALE (20:31)
[2023-07-19] MEDS: clonazePAM 1 MG TABLET PO (21:37)
[2023-07-19] MEDS: Atorvastatin Calcium 20 MG TABLET PO (21:37)
[2023-07-19] MEDS: Insulin Glargine,Hum.rec.anlog 100 UNIT/ML 10 ML VIAL 45 UNIT SUBCUT (21:41)
[2023-07-19 21:50] LABS: Vancomycin Random 27.9 mcg/mL (15-20)
[2023-07-20] VITALS (16 sets, daily range): BP systolic 140–165; BP diastolic 80–98; PULSE 80–120; RESP 18–20; TEMP 36.1–36.7; O2SAT 90–99; BMI 37.3
[2023-07-20] MEDS: methylPREDNISolone Sod Succ 125 MG/2 ML VIAL 60 MG IVPUSH ×4 (00:10→23:58)
[2023-07-20] MEDS: cefEPime HCl 2 GM in 0.9 % Sodium Chloride 50 ML IV (02:36)
[2023-07-20] MEDS: Albuterol/Iprat 2.5/0.5MG 3 ML AMPUL.NEB INHALE ×6 (03:53→22:27)
[2023-07-20] MEDS: Heparin Sodium,Porcine 5,000 UNIT/ML VIAL 5000 UNIT SUBCUT ×3 (05:42→21:29)
[2023-07-20] MEDS: Omeprazole 40 MG CAPSULE.DR PO (05:42)
[2023-07-20 07:18] LABS: Glucose, Whole Blood 241 mg/dL (60-115)
[2023-07-20 07:42] LABS: Basophils Absolute Auto 0.1 X10*3/uL (0.0-0.2); Basophils Percent Auto 0.3 % (0-2); Hematocrit 41.1 % (37.0-47.0); Imm Gran Abs Auto 0.52 X10*3/uL (0.00-0.03); Imm Gran Pct Auto 2.8 % (0.0-0.4); Lymphocytes Absolute Auto 0.4 X10*3/uL (1.2-4.9); Lymphocytes Percent Auto 2.3 % (20-40); MANUAL DIFF FLAG SCAN; Mean Corpuscular HGB Conc 31.6 g/dl (31.0-35.0); Mean Corpuscular Hemoglobin 29.8 pg (27.0-33.0); Mean Corpuscular Volume 94.3 fL (80.0-98.0); Monocytes Absolute Auto 0.6 X10*3/uL (0.1-1.2); Monocytes Percent Auto 3.2 % (2-11); NRBC Pct Auto 0.3 /100WBC (0.0-0.2); Neutrophils Percent Auto 91.4 % (45-73); Platelet Count 288 X10*3/uL (160-400); Red Blood Count 4.36 X10*6/uL (4.20-5.50); Red Cell Distribution Width 13.3 % (11.0-16.0); SCAN SMEAR FLAG 1; White Blood Count 18.6 X10*3/uL (4.8-10.8)
[2023-07-20 08:06] LABS: Anion Gap 19 (12-20); Blood Urea Nitrogen 39 mg/dL (9-16); Calcium 10.7 mg/dL (8.4-10.2); Carbon Dioxide 35 mmol/L (22-29); Chloride 91 mmol/L (96-108); Creatinine Clr Calc Pharmacy 100.6; Estimated Glomerular Filt Rate > 60; Glucose Random 263 mg/dL (60-115); Potassium 3.3 mmol/L (3.3-5.1); Sodium 142 mmol/L (135-145)
[2023-07-20] MEDS: methADONE HCl 20 MG/2 ML ORAL.CONC 50 MG PO (08:07)
[2023-07-20] MEDS: dilTIAZem HCL CD 180 MG CAP.ER.24H 360 MG PO (08:09)
[2023-07-20] MEDS: Folic Acid 1 MG TABLET PO (08:09)
[2023-07-20] MEDS: hydrALAZINE HCl 25 MG TABLET PO ×3 (08:09→17:00)
[2023-07-20] MEDS: lamoTRIgine 25 MG TABLET 150 MG PO ×2 (08:10→21:30)
[2023-07-20] MEDS: Furosemide 20 MG/2 ML VIAL IVPUSH ×2 (08:10→17:00)
[2023-07-20] MEDS: Insulin Lispro 100 UNIT/ML 3 ML VIAL SUBCUT ×8 (08:10→23:37)
[2023-07-20] MEDS: azaTHIOprine 50 MG TABLET 100 MG PO (08:10)
--- NOTE | 2023-07-20 08:16 | HE.PHANOTE ---
RE: vanco Patient seemingly dose dumped on 07/18 with a level of 27.9; dose was held 07/18 PM. Random level on 07/19 AM came back at 12mg/L. Changed dose to 1250mg Q12H with predicted trough of 11.6, AUC of 459 mg/L. Next level to be drawn after two doses 07/20 @0700
[2023-07-20 08:25] LABS: SLIDE REVIEW VERIFIED
[2023-07-20 08:30] LABS: MRSA Nasal PCR NEGATIVE (Negative); SA Nasal PCR NEGATIVE (Negative)
[2023-07-20] MEDS: vancomycin HCL 1,250 MG in 0.9 % Sodium Chloride 250 ML 166.67 MG IV (09:34)
--- NOTE | 2023-07-20 09:57 | P.PNIM_ITS ---
Subjective Subjective Date of Service: 07/20/23 Interval History: Seen and examined this morning Follow-up for respiratory failure, COPD, pneumonia, fluid overload Appears dyspneic, reports sob, cough, no fever or chills Review of Systems Review of Systems: Yes all other systems are reviewed and are negative Constitutional Constitutional: Denies chills and Denies fever(s) Cardiovascular Cardiovascular: Denies chest pain, Denies palpitations and Reports dyspnea Respiratory Respiratory: Reports cough and Reports dyspnea Gastrointestinal Gastrointestinal: Denies abdominal pain, Denies nausea and Denies vomiting Endocrine Endocrine: Denies palpitations Physical Exam 2 Vital Signs: Vital Signs: Last Vital Signs Temp 97.6 F 07/20/23 07:42 Pulse 108 H 07/20/23 08:09 Resp 18 07/20/23 07:51 BP 165/98 H 07/20/23 08:10 Pulse Ox 92 07/20/23 07:42 O2 Del Method Nasal Cannula 07/20/23 07:42 O2 Flow Rate 2 07/20/23 07:42 FiO2 30 07/20/23 04:00 Oxygen Flow Rate 2 07/16/23 10:35 BMI result Body Mass Index 37.3 Const: General: alert and awake Nutritional Appearance: obese O rientation/consciousness: patient oriented x3 Resp: Other: mild dyspnea, can speak in full sentences with frequent breaks Auscultation: wheezes Cardio: Rate: tachycardic GI: Inspection: No distended Palpation (GI): Soft to palpation and nontender Neuro: General: patient oriented x3, moves all extremities and CN's II-XI intact bilaterally Extrem: General: Yes no pedal edema Objective Data Active Medications Albuterol/Ipratropium (Albuterol/Iprat 2.5/0.5mg 3 Ml Ampul.Neb) 3 ml INHALE RQ4H [facility] Last Admin: 07/20/23 07:49 Dose: 3 ml Documented By: ROMULO Atorvastatin Calcium (Atorvastatin Calcium 20 Mg Tablet) 20 mg PO BEDTIME [facility] Last Admin: 07/19/23 21:37 Dose: 20 mg Documented By: GANESH Azathioprine (Azathioprine 50 Mg Tablet) 100 mg PO DAILY [facility] Last Admin: 07/20/23 08:10 Dose: 100 mg Documented By: DOMINIK Clonazepam (Clonazepam 1 Mg Tablet) 1 mg PO BID PRN PRN Reason: Anxiety Last Admin: 07/19/23 21:37 Dose: 1 mg Documented By: GANESH Diltiazem HCl (Diltiazem Hcl Cd 180 Mg Cap.Er.24h) 360 mg PO DAILY [facility]; Protocol Last Admin: 07/20/23 08:09 Dose: 360 mg Documented By: DOMINIK Folic Acid (Folic Acid 1 Mg Tablet) 1 mg PO DAILY [facility] Last Admin: 07/20/23 08:09 Dose: 1 mg Documented By: DOMINIK Furosemide (Furosemide 20 Mg/2 Ml Vial) 20 mg IVPUSH BID@0900,1800 [facility]; Protocol Last Admin: 07/20/23 08:10 Dose: 20 mg Documented By: DOMINIK Glucose (Glucose Gel 15 Gm Gel..Gram.) 15 gm PO Q15M PRN; Protocol PRN Reason: per Hypoglycemia Standing Ord. Heparin Sodium (Porcine) (Heparin Sodium,Porcine 5,000 Unit/Ml Vial) 5,000 unit SUBCUT Q8H [facility] Last Admin: 07/20/23 05:42 Dose: 5,000 unit Documented By: JEF Hydralazine HCl (Hydralazine Hcl 25 Mg Tablet) 25 mg PO TIDWM [facility]; Protocol Last Admin: 07/20/23 08:09 Dose: 25 mg Documented By: DOMINIK Hydralazine HCl (Hydralazine Hcl 20 Mg/Ml Vial) 10 mg IVPUSH Q6H PRN; Protocol PRN Reason: Hypertension Dextrose (D10) 250 mls @ 750 mls/hr IV Q15M PRN; Protocol PRN Reason: per Hypoglycemia Standing Ord. Cefepime HCl 2 gm/ Sodium (Chloride) 50 mls @ 100 mls/hr IV Q12H [facility] Last Infusion: 07/20/23 04:10 Dose: Infused Documented By: JEF Vancomycin HCl 1,250 mg/ (Sodium Chloride) 250 mls @ 166.667 mls/hr IV Q12H [facility] Last Admin: 07/20/23 09:34 Dose: 166.67 mls/hr Documented By: DOBROB Insulin Glargine (Insulin Glargine,Hum.Rec.Anlog 100 Unit/Ml 10 Ml Vial) 45 unit SUBCUT BEDTIME [facility] Last Admin: 07/19/23 21:41 Dose: 45 unit Documented By: GANESH Insulin Human Lispro (Insulin Lispro 100 Unit/Ml 3 Ml Vial) 0 unit SUBCUT QIDACHS [facility]; Protocol Last Admin: 07/20/23 08:11 Dose: 4 unit Documented By: DOMINIK Insulin Human Lispro (Insulin Lispro 100 Unit/Ml 3 [facility]l Vial) [facility] Last Admin: 07/20/23 08:10 Dose: 5 unit Documented By: DOMINIK Lamotrigine (Lamotrigine 25 Mg Tablet) 150 mg PO BID [facility] Last Admin: 07/20/23 08:10 Dose: 150 mg Documented By: DOMINIK Methadone HCl (Methadone Hcl 20 Mg/2 Ml Oral.Conc) 50 mg PO DAILY [facility] Last Admin: 07/20/23 08:07 Dose: 50 mg Documented By: DOMINIK Methylprednisolone Sodium Succinate (Methylprednisolone Sod Succ 125 Mg/2 Ml Vial) 60 mg IVPUSH Q8H [facility] Last Admin: 07/20/23 08:10 Dose: 60 mg Documented By: DOMINIK Naloxone HCl (Naloxone Hcl 0.4 Mg/Ml Vial) 0.2 mg IVPUSH Q2M PRN PRN Reason: Excessive sedation or RR < 8 Omeprazole (Omeprazole 40 Mg Capsule.Dr) 40 mg PO DAILY@0630 [facility] Last Admin: 07/20/23 05:42 Dose: 40 mg Documented By: JEF Pharmacy Consult (Consult Rx Vancomycin Dosing) 1 each MISCELLANE DAILY PRN PRN Reason: Consult order Labs 07/20/23 07:21 07/20/23 07:21 Labs: Laboratory Results - last 24 hr 07/19/23 07/19/23 07/19/23 11:59 12:01 14:52 MCV MCH MCHC RDW Plt Count MPV Immature Gran % (Auto) Neut % (Auto) Lymph % (Auto) [place] % (Auto) Eos % (Auto) Baso % (Auto) Lymph # (Auto) [place] # (Auto) Eos # (Auto) Baso # (Auto) Abs Immat Gran (auto) Absolute Neuts (auto) Absolute Nucleated RBC Nucleated RBC % (auto) Smear Tech's Comments Anion Gap Estim Creat Clear Calc Estimated GFR POC Glucose 528 H* 530 H* Random Glucose Calcium B-Natriuretic Peptide 127 H Nasal Screen MRSA (PCR) Nasal S. aureus Screen Nasal MRSA/S.aureus Interp Random Vancomycin 07/19/23 07/19/23 07/19/23 16:03 20:13 21:12 MCV MCH MCHC RDW Plt Count MPV Immature Gran % (Auto) Neut % (Auto) Lymph % (Auto) [place] % (Auto) Eos % (Auto) Baso % (Auto) Lymph # (Auto) [place] # (Auto) Eos # (Auto) Baso # (Auto) Abs Immat Gran (auto) Absolute Neuts (auto) Absolute Nucleated RBC Nucleated RBC % (auto) Smear Tech's Comments Anion Gap Estim Creat Clear Calc Estimated GFR POC Glucose 326 H 294 H Random Glucose Calcium B-Natriuretic Peptide Nasal Screen MRSA (PCR) Nasal S. aureus Screen Nasal MRSA/S.aureus Interp Random Vancomycin 27.9 H* 07/19/23 07/20/23 07/20/23 22:50 07:10 07:21 MCV 94.3 MCH 29.8 MCHC 31.6 RDW 13.3 Plt Count 288 MPV 9.0 L Immature Gran % (Auto) 2.8 H Neut % (Auto) 91.4 H Lymph % (Auto) 2.3 L [place] % (Auto) 3.2 Eos % (Auto) 0.0 Baso % (Auto) 0.3 Lymph # (Auto) 0.4 L [place] # (Auto) 0.6 Eos # (Auto) 0.0 Baso # (Auto) 0.1 Abs Immat Gran (auto) 0.52 H Absolute Neuts (auto) 17.0 H Absolute Nucleated RBC 0.050 H Nucleated RBC % (auto) 0.3 H Smear Tech's Comments VERIFIED Anion Gap 19 Estim Creat Clear Calc 100.6 Estimated GFR > 60 POC Glucose 241 H Random Glucose 263 H Calcium 10.7 H B-Natriuretic Peptide Nasal Screen MRSA (PCR) NEGATIVE Nasal S. aureus Screen NEGATIVE Nasal MRSA/S.aureus Interp SEE NOTE Random Vancomycin 12.0 L Microbiology Microbiology Results: Microbiology 07/16/23 21:39 Gram Stain - Final Sputum - Suctioned Sputum Culture - Final Haemophilus influenzae Assessment and Plan (1) Obesity hypoventilation syndrome: Status: Acute (2) COPD (chronic obstructive pulmonary disease): Status: Acute (3) Pneumonia: Status: Acute (4) Acute on chronic respiratory failure with hypoxia and hypercapnia: Status: Acute Plan This is a 53 year old female with history of chronic hypoxic and hypercarbic respiratory failure on 2 L nasal cannula and BiPAP at night, CHITO/OHS/asthma/COPD overlap, chronic methadone use, diabetes, recurrent admissions for respiratory failure who was brought in by ambulance for headache and nausea found to be hypoxic, placed on BiPAP but failed to improve and was ultimately intubated in the emergency department on July 15 and transferred to the ICU for further care. Her imaging showed evidence of bronchopneumonia and she was treated with vancomycin/cefepime as well as steroids and breathing treatments for COPD exacerbation. In addition she was started on IV lasix for component of CHF. She was Extubated July 17 and downgraded to the medical floor July 18. Acute on chronic hypercarbic and hypoxic respiratory failure Multifactorial due to COPD exacerbation, bronchopneumonia, obesity hypoventilation,and exacerbation of HFpEF Continue BiPAP q.h.s. Continue supplemental oxygen, 2 L at baseline further management as below Bronchopneumonia initially treated with IV cefepime and vancomycin. Sputum culture growing Haemophilus influenzae, will change to IV ceftriaxone; MRSA nares negative will stop vanco blood cultures negative to date afebrile, leukocytosis due to steroids Acute on chronic HFpEF continue IV lasix low sodium diet follow Is&Os acute exacerbation of COPD IV solu-medrol weaned to q8h Continue scheduled and p.r.n. breathing treatments continue supplemental o2 2L NC Diabetes with hyperglycemia due to steroids Was on regular diet, will change to diabetic diet Continue home dose of Lantus Continue sliding scale, follow-up point of care sugars scheduled meal time insulin added, BS under better control monitor as steroids are weaned Metformin on hold OUD Continue methadone Morbid obesity BMI 40 Weight loss and diet modification recommended Mood continue Continue Lamictal, klonopin Hypertension Continue diltiazem, hydralazine HLD Continue statin dvt ppx - heparin code status - full code Quality Stroke Does the patient have a stroke diagnosis?: No VTE Prior VTE?: No VTE Risk Level:: Medical - moderate - high VTE Device Contraindication: N/A - Device Ordered VTE Drug Contraindication: N/A - Med Ordered
[2023-07-20 10:55] LABS: Glucose, Whole Blood 258 mg/dL (60-115)
[2023-07-20] MEDS: guaiFENesin DM 600/30 1 TAB TAB.ER.12H PO ×2 (11:47→21:30)
[2023-07-20 15:55] LABS: Glucose, Whole Blood 320 mg/dL (60-115)
[2023-07-20 20:43] LABS: Glucose, Whole Blood 345 mg/dL (60-115)
[2023-07-20] MEDS: Insulin Glargine,Hum.rec.anlog 100 UNIT/ML 10 ML VIAL 45 UNIT SUBCUT (21:28)
[2023-07-20] MEDS: Atorvastatin Calcium 20 MG TABLET PO (21:30)
[2023-07-21] VITALS (23 sets, daily range): BP systolic 131–180; BP diastolic 85–102; PULSE 88–124; RESP 15–26; TEMP 35.9–36.6; O2SAT 90–99; BMI 37.3
[2023-07-21] MEDS: cefTRIAXone sodium 2 GM in 0.9 % Sodium Chloride 50 ML IV ×2 (00:11→22:51)
[2023-07-21] MEDS: clonazePAM 1 MG TABLET PO (00:11)
[2023-07-21] MEDS: Albuterol/Iprat 2.5/0.5MG 3 ML AMPUL.NEB INHALE ×5 (02:43→23:33)
[2023-07-21] MEDS: Heparin Sodium,Porcine 5,000 UNIT/ML VIAL 5000 UNIT SUBCUT ×3 (05:46→20:17)
[2023-07-21] MEDS: Omeprazole 40 MG CAPSULE.DR PO (05:47)
[2023-07-21 07:26] LABS: Basophils Absolute Auto 0.1 X10*3/uL (0.0-0.2); Basophils Percent Auto 0.3 % (0-2); Eosinophils Absolute Auto 0.1 X10*3/uL (0.0-0.4); Eosinophils Percent Auto 0.6 % (0-4); Hemoglobin 12.7 g/dl (12.0-16.0); Imm Gran Abs Auto 0.52 X10*3/uL (0.00-0.03); Lymphocytes Absolute Auto 0.3 X10*3/uL (1.2-4.9); Lymphocytes Percent Auto 1.9 % (20-40); MANUAL DIFF FLAG SCAN; Mean Corpuscular HGB Conc 32.6 g/dl (31.0-35.0); Mean Corpuscular Hemoglobin 30.3 pg (27.0-33.0); Mean Corpuscular Volume 93.1 fL (80.0-98.0); Mean Platelet Volume 9.4 fL (9.4-12.3); Monocytes Absolute Auto 0.5 X10*3/uL (0.1-1.2); Monocytes Percent Auto 2.9 % (2-11); NRBC Pct Auto 0.1 /100WBC (0.0-0.2); Neutrophils Absolute Auto 15.9 x10*3/uL (2.0-8.3); Neutrophils Percent Auto 91.3 % (45-73); Platelet Count 270 X10*3/uL (160-400); Red Blood Count 4.19 X10*6/uL (4.20-5.50); Red Cell Distribution Width 13.2 % (11.0-16.0); SCAN SMEAR FLAG 1; White Blood Count 17.4 X10*3/uL (4.8-10.8)
[2023-07-21 07:31] LABS: Glucose, Whole Blood 333 mg/dL (60-115)
[2023-07-21 07:51] LABS: Anion Gap 17 (12-20); Blood Urea Nitrogen 41 mg/dL (9-16); Calcium 10.5 mg/dL (8.4-10.2); Carbon Dioxide 37 mmol/L (22-29); Chloride 91 mmol/L (96-108); Creatinine Clr Calc Pharmacy 79.5; Estimated Glomerular Filt Rate > 60; Potassium 3.8 mmol/L (3.3-5.1); Sodium 141 mmol/L (135-145)
[2023-07-21 07:55] LABS: SLIDE REVIEW VERIFIED
[2023-07-21] MEDS: methylPREDNISolone Sod Succ 125 MG/2 ML VIAL 60 MG IVPUSH ×2 (08:01→17:41)
[2023-07-21] MEDS: Furosemide 20 MG/2 ML VIAL IVPUSH ×3 (08:01→22:46)
[2023-07-21] MEDS: Insulin Lispro 100 UNIT/ML 3 ML VIAL SUBCUT ×8 (08:01→20:16)
[2023-07-21] MEDS: methADONE HCl 20 MG/2 ML ORAL.CONC 50 MG PO (08:01)
[2023-07-21] MEDS: azaTHIOprine 50 MG TABLET 100 MG PO (08:02)
[2023-07-21] MEDS: dilTIAZem HCL CD 180 MG CAP.ER.24H 360 MG PO (08:02)
[2023-07-21] MEDS: hydrALAZINE HCl 25 MG TABLET PO ×3 (08:02→17:44)
[2023-07-21] MEDS: guaiFENesin DM 600/30 1 TAB TAB.ER.12H PO ×2 (08:02→20:14)
[2023-07-21] MEDS: lamoTRIgine 25 MG TABLET 150 MG PO ×2 (08:03→20:14)
[2023-07-21] MEDS: Folic Acid 1 MG TABLET PO (08:03)
[2023-07-21 08:13] LABS: Glucose Random 370 mg/dL (60-115)
--- NOTE | 2023-07-21 10:22 | MHC.CLN ---
F/U PT EXTUBATED AND TRANSFERRED TO MEDICAL FLOOR DIET ADVANCED TO 1800DM 2GM NA CHOPPED WITH NT LIQ-APPROPRIATE PO INTAKE 75% AVG REDNESS NOTED MONITOR PO INTAKE RD TO FOLLOW WEEKLY
--- NOTE | 2023-07-21 10:29 | MHC.CM.PN ---
Per ROUNDS discussion, Patient is not yet medically cleared for dc (Coughing & congested); home/resume services is the goal and CM will continue to follow.
[2023-07-21 11:33] LABS: Glucose, Whole Blood 339 mg/dL (60-115)
--- NOTE | 2023-07-21 12:08 | MHC.SL.SWA ---
Speech Pathologist Impression: Risk of aspiration Risk of Aspiration Due to: Medically Fragile Hx of Recent Extubation Weak Voice Dysphasia Diet Status: Continue on REGULAR/THIN Liquid Consistency and Strategies for Safe Swallow: Liquid Intake Recommendation: Thin Liquid Intake Strategies: Small Sips No Straws Solid Food Consistency: Dietary Recommendations: Regular Additional Modifications to Solid Foods: Patient with mildly prolonged mastication, all other aspects of swallow deemed WFL. Recommend continue on REGULAR texture diet and THIN liquids, pills WHOLE in LIQUID or PUREE per patient tolerance/preference. CONSERVATION WORKER to f/u 1-2x to monitor tolerance. Oral Medication Intake: Whole with Puree Please contact the pharmacy regarding appropriate crushable or liquid drug formulations that are available whenever modified delivery is recommended. Compensatory Strategies and Precautions to be Taken for Safe Swallow: Sitting Upright (90 deg) No Straw Liquids from Wide Cup Small Bites and Sips Alternate Liquids/Solids Rate of Ingestion Change Supervision While Eating and Drinking for Safe Swallow: Intermittent Supervision Foods to Avoid: Mixed consistencies. Swallowing Recommended Treatments: Compens. Strategy Educat. Recommendation for Speech: Inpatient Speech Therapy Frequency/Duration: Daily Date Range for Service Req: Timeline to reassess: PRN Agricultural Economics Professor Clinican/Clinical Fellow: No Supervisory Statement: I have reviewed and agree with the student/clinical fellow's documentation: N/A Speech Language Pathologist: Ana Gavin M.A., CCC-CONSERVATION WORKER
--- NOTE | 2023-07-21 14:16 | HO.PM.IMPN ---
Subjective Subjective Date of Service: 07/21/23 Interval History: Seen and examined this morning Follow-up for respiratory failure, COPD, pneumonia, fluid overload Appears dyspneic, reports sob, cough, no fever or chills Review of Systems Review of Systems: Yes all other systems are reviewed and are negative Constitutional Constitutional: Denies chills and Denies fever(s) Cardiovascular Cardiovascular: Denies chest pain, Denies palpitations and Reports dyspnea Respiratory Respiratory: Reports cough and Reports dyspnea Gastrointestinal Gastrointestinal: Denies abdominal pain, Denies nausea and Denies vomiting Endocrine Endocrine: Denies palpitations Physical Exam Vital Signs: Vital Signs: Last Vital Signs Temp 97.5 F 07/21/23 11:25 Pulse 124 H 07/21/23 13:45 Resp 18 07/21/23 13:45 BP 131/85 07/21/23 11:59 Pulse Ox 96 07/21/23 11:25 O2 Del Method Nasal Cannula 07/21/23 11:25 O2 Flow Rate 2 07/21/23 11:25 FiO2 30 07/21/23 04:00 Oxygen Flow Rate 2 07/16/23 10:35 BMI result Body Mass Index 37.3 Appearing in no acute distress lung sounds diminshed heart regular rate rhythm, clear S1, S2 positive bowel sounds, abdomen is soft, nontender neuro patient is alert x3, no focal deficits Objective Data Active Medications Albuterol/Ipratropium (Albuterol/Iprat 2.5/0.5mg 3 Ml Ampul.Neb) 3 ml INHALE RQ4H [facility] Last Admin: 07/21/23 13:44 Dose: 3 ml Documented By: RAHEL Atorvastatin Calcium (Atorvastatin Calcium 20 Mg Tablet) 20 mg PO BEDTIME [facility] Last Admin: 07/20/23 21:30 Dose: 20 mg Documented By: MAYDA Azathioprine (Azathioprine 50 Mg Tablet) 100 mg PO DAILY [facility] Last Admin: 07/21/23 08:02 Dose: 100 mg Documented By: BROFilipe Clonazepam (Clonazepam 1 Mg Tablet) 1 mg PO BID PRN PRN Reason: Anxiety Last Admin: 07/21/23 00:11 Dose: 1 mg Documented By: MAYDA Diltiazem HCl (Diltiazem Hcl Cd 180 Mg Cap.Er.24h) 360 mg PO DAILY [facility]; Protocol Last Admin: 07/21/23 08:02 Dose: 360 mg Documented By: LOYD Folic Acid (Folic Acid 1 Mg Tablet) 1 mg PO DAILY [facility] Last Admin: 07/21/23 08:03 Dose: 1 mg Documented By: LOYD Furosemide (Furosemide 20 Mg/2 Ml Vial) 20 mg IVPUSH BID@0900,1800 [facility]; Protocol Last Admin: 07/21/23 08:01 Dose: 20 mg Documented By: LOYD Glucose (Glucose Gel 15 Gm Gel..Gram.) 15 gm PO Q15M PRN; Protocol PRN Reason: per Hypoglycemia Standing Ord. Guaifenesin/Dextromethorphan (Guaifenesin Dm 600/30 1 Tab Tab.Er.12h) 1 tab PO BID [facility] Last Admin: 07/21/23 08:02 Dose: 1 tab Documented By: LOYD Heparin Sodium (Porcine) (Heparin Sodium,Porcine 5,000 Unit/Ml Vial) 5,000 unit SUBCUT Q8H [facility] Last Admin: 07/21/23 12:00 Dose: 5,000 unit Documented By: LOYD Hydralazine HCl (Hydralazine Hcl 25 Mg Tablet) 25 mg PO TIDWM [facility]; Protocol Last Admin: 07/21/23 11:59 Dose: 25 mg Documented By: LOYD Hydralazine HCl (Hydralazine Hcl 20 Mg/Ml Vial) 10 mg IVPUSH Q6H PRN; Protocol PRN Reason: Hypertension Dextrose (D10) 250 mls @ 750 mls/hr IV Q15M PRN; Protocol PRN Reason: per Hypoglycemia Standing Ord. Ceftriaxone Sodium 2 gm/ (Sodium Chloride) 50 mls @ 100 mls/hr IV Q24H [facility] Last Infusion: 07/21/23 02:04 Dose: Infused Documented By: MAYDA Insulin Glargine (Insulin Glargine,Hum.Rec.Anlog 100 Unit/Ml 10 Ml Vial) 45 unit SUBCUT BEDTIME [facility] Last Admin: 07/20/23 21:28 Dose: 45 unit Documented By: MAYDA Insulin Human Lispro (Insulin Lispro 100 Unit/Ml 3 Ml Vial) 0 unit SUBCUT QIDACHS [facility]; Protocol Last Admin: 07/21/23 11:58 Dose: 8 unit Documented By: LOYD Insulin Human Lispro (Insulin Lispro 100 Unit/Ml 3 Ml Vial) 5 unit SUBCUT QIDACHS [facility] Last Admin: 07/21/23 11:58 Dose: 5 unit Documented By: LOYD Lamotrigine (Lamotrigine 25 Mg Tablet) 150 mg PO BID [facility] Last Admin: 07/21/23 08:03 Dose: 150 mg Documented By: LOYD Methadone HCl (Methadone Hcl 20 Mg/2 Ml Oral.Conc) 50 mg PO DAILY [facility] Last Admin: 07/21/23 08:01 Dose: 50 mg Documented By: LOYD Methylprednisolone Sodium Succinate (Methylprednisolone Sod Succ 125 Mg/2 Ml Vial) 60 mg IVPUSH Q8H [facility] Last Admin: 07/21/23 08:01 Dose: 60 mg Documented By: LOYD Naloxone HCl (Naloxone Hcl 0.4 Mg/Ml Vial) 0.2 mg IVPUSH Q2M PRN PRN Reason: Excessive sedation or RR < 8 Omeprazole (Omeprazole 40 Mg Capsule.) 40 mg PO DAILY@629 [facility] Last Admin: 07/21/23 05:47 Dose: 40 mg Documented By: MAYDA Labs 07/21/23 07:00 07/21/23 07:00 Labs: Laboratory Results - last 24 hr 07/20/23 07/20/23 07/21/23 15:51 20:38 07:00 MCV 93.1 MCH 30.3 MCHC 32.6 RDW 13.2 Plt Count 270 MPV 9.4 Immature Gran % (Auto) 3.0 H Neut % (Auto) 91.3 H Lymph % (Auto) 1.9 L [place] % (Auto) 2.9 Eos % (Auto) 0.6 Baso % (Auto) 0.3 Lymph # (Auto) 0.3 L [place] # (Auto) 0.5 Eos # (Auto) 0.1 Baso # (Auto) 0.1 Abs Immat Gran (auto) 0.52 H Absolute Neuts (auto) 15.9 H Absolute Nucleated RBC 0.020 H Nucleated RBC % (auto) 0.1 Smear Tech's Comments VERIFIED Anion Gap 17 Estim Creat Clear Calc 79.5 Estimated GFR > 60 POC Glucose 320 H 345 H Random Glucose 370 H* Calcium 10.5 H 07/21/23 07/21/23 07:23 11:27 MCV MCH MCHC RDW Plt Count MPV Immature Gran % (Auto) Neut % (Auto) Lymph % (Auto) [place] % (Auto) Eos % (Auto) Baso % (Auto) Lymph # (Auto) [place] # (Auto) Eos # (Auto) Baso # (Auto) Abs Immat Gran (auto) Absolute Neuts (auto) Absolute Nucleated RBC Nucleated RBC % (auto) Smear Tech's Comments Anion Gap Estim Creat Clear Calc Estimated GFR POC Glucose 333 H 339 H Random Glucose Calcium Microbiology Microbiology Results: Microbiology 07/16/23 11:52 Blood Culture - Final Blood - Venous No growth after 5 days. 07/16/23 11:52 Blood Culture - Final Blood - Venous No growth after 5 days. Assessment and Plan (1) Obesity hypoventilation syndrome: Status: Acute (2) COPD (chronic obstructive pulmonary disease): Status: Acute (3) Pneumonia: Status: Acute (4) Acute on chronic respiratory failure with hypoxia and hypercapnia: Status: Acute Plan This is a 53 year old female with history of chronic hypoxic and hypercarbic respiratory failure on 2 L nasal cannula and BiPAP at night, CHITO/OHS/asthma/COPD overlap, chronic methadone use, diabetes, recurrent admissions for respiratory failure who was brought in by ambulance for headache and nausea found to be hypoxic, placed on BiPAP but failed to improve and was ultimately intubated in the emergency department on July 15 and transferred to the ICU for further care. Her imaging showed evidence of bronchopneumonia and she was treated with vancomycin/cefepime as well as steroids and breathing treatments for COPD exacerbation. In addition she was started on IV lasix for component of CHF. She was Extubated July 17 and downgraded to the medical floor July 18. Acute on chronic hypercarbic and hypoxic respiratory failure Multifactorial due to COPD exacerbation, bronchopneumonia, obesity hypoventilation,and exacerbation of HFpEF Continue BiPAP q.h.s. Continue supplemental oxygen, 2 L at baseline further management as below Bronchopneumonia initially treated with IV cefepime and vancomycin. Sputum culture growing Haemophilus influenzae, will change to IV ceftriaxone; MRSA nares negative will stop vanco blood cultures negative to date afebrile, leukocytosis due to steroids Acute on chronic HFpEF continue IV lasix low sodium diet follow Is&Os acute exacerbation of COPD IV solu-medrol weaned to q8h Continue scheduled and p.r.n. breathing treatments continue supplemental o2 2L NC Diabetes with hyperglycemia due to steroids Was on regular diet, will change to diabetic diet Continue home dose of Lantus Continue sliding scale, follow-up point of care sugars scheduled meal time insulin added, BS under better control monitor as steroids are weaned Metformin on hold OUD Continue methadone Morbid obesity BMI 40 Weight loss and diet modification recommended Mood continue Continue Lamictal, klonopin Hypertension Continue diltiazem, hydralazine HLD Continue statin dvt ppx - heparin Attending Dr. Jones code status - full code Quality Stroke Does the patient have a stroke diagnosis?: No VTE Prior VTE?: No VTE Risk Level:: Medical - moderate - high VTE Device Contraindication: N/A - Device Ordered VTE Drug Contraindication: N/A - Med Ordered
[2023-07-21 16:35] LABS: Glucose, Whole Blood 331 mg/dL (60-115)
[2023-07-21 19:57] LABS: Glucose, Whole Blood 402 mg/dL (60-115)
[2023-07-21] MEDS: Atorvastatin Calcium 20 MG TABLET PO (20:14)
[2023-07-21] MEDS: hydrALAZINE HCl 20 MG/ML VIAL 10 MG IVPUSH (20:15)
[2023-07-21] MEDS: Insulin Glargine,Hum.rec.anlog 100 UNIT/ML 10 ML VIAL 45 UNIT SUBCUT (20:16)
--- NOTE | 2023-07-21 22:31 | PM.EVENT ---
Event Note Date of Service: 07/22/23 Event Note: Patient with tachypnea and dyspnea. Bilateral crackles present. Will order additional dose of IV Lasix. Obtaining chest x-ray and VBG Time Spent With Patient Time: Total time managing care of this patient today ____ minutes.
[2023-07-21] MEDS: Morphine Sulfate 2 MG/ML CARTRIDGE 1 MG IVPUSH (22:46)
[2023-07-21 22:57] LABS: VBG Base Excess 18.9 mmol/L; VBG HCO3 44 mmol/L (22-26); VBG pCO2 51 mmHg; VBG pH 7.54 (7.32-7.43); VBG pO2 92 mmHg
[2023-07-21 22:58] LABS: Venous Blood Gas Refer to POC result
--- NOTE | 2023-07-21 23:55 | PC.NURSE ---
Assumed care of patient at 19:15 this evening. Pt is A&Ox4. Hypertensive on assuming care with prn hydralazine given as ordered for SBP >160 with minimal effect. Pt denied being symptomatic. Denied pain. notified. Continues on 2L nc on assuming care which pt states is her home o2 level. Active o2 order in place per policy. Pt with observed mild ANAYA as a stand and pivot to the bedside commode with one assist, improved when returned to bed. Breathing even and unlabored without distress and spo2 maintained. Pt remains non-compliant with and continues to refuse bed alarms. HS POC critical 402; Dr. Corral notified and ISS and scheduled lantus administered as advised (see critical event reporting). At 22:30 staff rounded to bedside and assisted the pt to the commode when she had increased ANAYA compared to previous with pt's HR noted into 130's on tele. Difficulty obtaining spo2 on continuous monitoring in place; sticker was loose on assessment with poor pleth. Spo2 from vitals cart was applied while awaiting requested new sticker. This showed 93-95%. Pt was assisted back into bed, was already on her bipap (placed approx 21:30) intact and functioning. HOB elevated and pillows placed under axilla to elevate arms off sides. Covering Dr. Corral notified. Orders placed for cxr, vbg, prn duonebs, additional dose 20mg IVP lasix, and a 1x dose of morphine IVP. Medications given with +effect, WOB improved and RR reduced to 16 from mid/upper 20's. BP also improved. Pt resting in bed at this time, appears comfortable and in no distress. Handoff report given to oncoming RN at 23:15. Please see shift assessment, tasks, and MAR for full details.
[2023-07-22] VITALS (19 sets, daily range): BP systolic 154–171; BP diastolic 90–100; PULSE 99–115; RESP 13–24; TEMP 36–37.1; O2SAT 85–94; BMI 37.7
[2023-07-22] MEDS: methylPREDNISolone Sod Succ 125 MG/2 ML VIAL 60 MG IVPUSH ×4 (00:41→22:32)
[2023-07-22] MEDS: Albuterol/Iprat 2.5/0.5MG 3 ML AMPUL.NEB INHALE ×6 (03:19→23:06)
[2023-07-22] MEDS: Heparin Sodium,Porcine 5,000 UNIT/ML VIAL 5000 UNIT SUBCUT ×3 (06:14→22:33)
[2023-07-22] MEDS: Omeprazole 40 MG CAPSULE.DR PO (06:15)
[2023-07-22 07:24] LABS: Glucose, Whole Blood 328 mg/dL (60-115)
[2023-07-22 07:24] LABS: Basophils Absolute Auto 0.1 X10*3/uL (0.0-0.2); Basophils Percent Auto 0.3 % (0-2); Hematocrit 38.9 % (37.0-47.0); Hemoglobin 12.7 g/dl (12.0-16.0); Imm Gran Abs Auto 0.52 X10*3/uL (0.00-0.03); Imm Gran Pct Auto 2.8 % (0.0-0.4); Lymphocytes Absolute Auto 0.3 X10*3/uL (1.2-4.9); Lymphocytes Percent Auto 1.4 % (20-40); MANUAL DIFF FLAG SCAN; Mean Corpuscular HGB Conc 32.6 g/dl (31.0-35.0); Mean Corpuscular Hemoglobin 29.7 pg (27.0-33.0); Mean Corpuscular Volume 91.1 fL (80.0-98.0); Mean Platelet Volume 9.2 fL (9.4-12.3); Monocytes Absolute Auto 0.5 X10*3/uL (0.1-1.2); Monocytes Percent Auto 2.4 % (2-11); Neutrophils Absolute Auto 17.2 x10*3/uL (2.0-8.3); Neutrophils Percent Auto 93.1 % (45-73); Platelet Count 278 X10*3/uL (160-400); Red Blood Count 4.27 X10*6/uL (4.20-5.50); Red Cell Distribution Width 13.3 % (11.0-16.0); SCAN SMEAR FLAG 1; White Blood Count 18.5 X10*3/uL (4.8-10.8)
[2023-07-22 07:33] LABS: Anion Gap 18 (12-20); Blood Urea Nitrogen 41 mg/dL (9-16); Carbon Dioxide 37 mmol/L (22-29); Chloride 88 mmol/L (96-108); Creatinine Clr Calc Pharmacy 86.4; Estimated Glomerular Filt Rate > 60; Sodium 140 mmol/L (135-145)
[2023-07-22 07:40] LABS: Glucose Random 353 mg/dL (60-115)
[2023-07-22] MEDS: methADONE HCl 20 MG/2 ML ORAL.CONC 50 MG PO (08:12)
[2023-07-22] MEDS: Insulin Lispro 100 UNIT/ML 3 ML VIAL SUBCUT ×4 (08:13→22:34)
[2023-07-22] MEDS: Insulin Lispro 100 UNIT/ML 3 ML VIAL 7.5 UNIT SUBCUT ×4 (08:13→22:34)
[2023-07-22] MEDS: azaTHIOprine 50 MG TABLET 100 MG PO (08:14)
[2023-07-22] MEDS: lamoTRIgine 25 MG TABLET 150 MG PO ×2 (08:14→22:33)
[2023-07-22] MEDS: dilTIAZem HCL CD 180 MG CAP.ER.24H 360 MG PO (08:15)
[2023-07-22] MEDS: Potassium Chloride ER 20 MEQ TAB.ER.PRT 40 MEQ PO (08:15)
[2023-07-22] MEDS: Folic Acid 1 MG TABLET PO (08:15)
[2023-07-22] MEDS: guaiFENesin DM 600/30 1 TAB TAB.ER.12H PO ×2 (08:16→22:33)
[2023-07-22] MEDS: Furosemide 20 MG/2 ML VIAL IVPUSH ×2 (08:17→16:56)
[2023-07-22] MEDS: hydrALAZINE HCl 25 MG TABLET PO ×3 (08:17→16:57)
[2023-07-22 08:29] LABS: SLIDE REVIEW VERIFIED
--- NOTE | 2023-07-22 09:58 | P.PNIM_ITS ---
Subjective Subjective Date of Service: 07/22/23 Interval History: Seen and examined this morning Follow-up for respiratory failure, COPD, pneumonia, fluid overload Appears dyspneic, reports sob, cough, no fever or chills Review of Systems Review of Systems: Yes all other systems are reviewed and are negative Constitutional Constitutional: Denies chills and Denies fever(s) Cardiovascular Cardiovascular: Denies chest pain, Denies palpitations and Reports dyspnea Respiratory Respiratory: Reports cough and Reports dyspnea Gastrointestinal Gastrointestinal: Denies abdominal pain, Denies nausea and Denies vomiting Endocrine Endocrine: Denies palpitations Physical Exam 2 Vital Signs: Vital Signs: Last Vital Signs Temp 97.9 F 07/22/23 07:15 Pulse 107 H 07/22/23 08:15 Resp 18 07/22/23 07:56 BP 170/95 H 07/22/23 08:17 Pulse Ox 92 07/22/23 07:15 O2 Del Method BiPAP 07/22/23 07:15 O2 Flow Rate 2 07/21/23 19:47 FiO2 30 07/22/23 04:00 Oxygen Flow Rate 2 07/16/23 10:35 BMI result Body Mass Index 37.7 Appearing in no acute distress lung sounds are clear to auscultation heart regular rate rhythm, clear S1, S2 positive bowel sounds, abdomen is soft, nontender neuro patient is alert x3, no focal deficits Objective Data Active Medications Albuterol/Ipratropium (Albuterol/Iprat 2.5/0.5mg 3 Ml Ampul.Neb) 3 ml INHALE RQ4H [facility] Last Admin: 07/22/23 07:56 Dose: 3 ml Documented By: BI Albuterol/Ipratropium (Albuterol/Iprat 2.5/0.5mg 3 Ml Ampul.Neb) 3 ml INHALE Q4H PRN PRN Reason: Wheezing Atorvastatin Calcium (Atorvastatin Calcium 20 Mg Tablet) 20 mg PO BEDTIME [facility] Last Admin: 07/21/23 20:14 Dose: 20 mg Documented By: MORENO Azathioprine (Azathioprine 50 Mg Tablet) 100 mg PO DAILY [facility] Last Admin: 07/22/23 08:14 Dose: 100 mg Documented By: GETACHEW Clonazepam (Clonazepam 1 Mg Tablet) 1 mg PO BID PRN PRN Reason: Anxiety Last Admin: 07/21/23 00:11 Dose: 1 mg Documented By: MAYDA Diltiazem HCl (Diltiazem Hcl Cd 180 Mg Cap.Er.24h) 360 mg PO DAILY [facility]; Protocol Last Admin: 07/22/23 08:15 Dose: 360 mg Documented By: GETACHEW Folic Acid (Folic Acid 1 Mg Tablet) 1 mg PO DAILY [facility] Last Admin: 07/22/23 08:15 Dose: 1 mg Documented By: GETACHEW Furosemide (Furosemide 20 Mg/2 Ml Vial) 20 mg IVPUSH BID@0900,1800 [facility]; Protocol Last Admin: 07/22/23 08:17 Dose: 20 mg Documented By: GETACHEW Glucose (Glucose Gel 15 Gm Gel..Gram.) 15 gm PO Q15M PRN; Protocol PRN Reason: per Hypoglycemia Standing Ord. Guaifenesin/Dextromethorphan (Guaifenesin Dm 600/30 1 Tab Tab.Er.12h) 1 tab PO BID [facility] Last Admin: 07/22/23 08:16 Dose: 1 tab Documented By: GETACHEW Heparin Sodium (Porcine) (Heparin Sodium,Porcine 5,000 Unit/Ml Vial) 5,000 unit SUBCUT Q8H [facility] Last Admin: 07/22/23 06:14 Dose: 5,000 unit Documented By: THADDEUS Hydralazine HCl (Hydralazine Hcl 25 Mg Tablet) 25 mg PO TIDWM [facility]; Protocol Last Admin: 07/22/23 08:17 Dose: 25 mg Documented By: GETACHEW Hydralazine HCl (Hydralazine Hcl 20 Mg/Ml Vial) 10 mg IVPUSH Q6H PRN; Protocol PRN Reason: Hypertension Last Admin: 07/21/23 20:15 Dose: 10 mg Documented By: MORENO Dextrose (D10) 250 mls @ 750 mls/hr IV Q15M PRN; Protocol PRN Reason: per Hypoglycemia Standing Ord. Ceftriaxone Sodium 2 gm/ (Sodium Chloride) 50 mls @ 100 mls/hr IV Q24H [facility] Last Infusion: 07/22/23 00:37 Dose: Infused Documented By: THADDEUS Insulin Glargine (Insulin Glargine,Hum.Rec.Anlog 100 Unit/Ml 10 Ml Vial) 45 unit SUBCUT BEDTIME [facility] Last Admin: 07/21/23 20:16 Dose: 45 unit Documented By: MORENO Insulin Human Lispro (Insulin Lispro 100 Unit/Ml 3 Ml Vial) 0 unit SUBCUT QIDACHS [facility]; Protocol Last Admin: 07/22/23 08:13 Dose: 8 unit Documented By: GETACHEW Insulin Human Lispro (Insulin Lispro 100 Unit/Ml 3 Ml Vial) 7.5 unit SUBCUT QIDAS [facility] Last Admin: 07/22/23 08:13 Dose: 7.5 unit Documented By: GETACHEW Lamotrigine (Lamotrigine 25 Mg Tablet) 150 mg PO BID [facility] Last Admin: 07/22/23 08:14 Dose: 150 mg Documented By: CTANDREW Methadone HCl (Methadone Hcl 20 Mg/2 Ml Oral.Conc) 50 mg PO DAILY [facility] Last Admin: 07/22/23 08:12 Dose: 50 mg Documented By: GETACHEW Methylprednisolone Sodium Succinate (Methylprednisolone Sod Succ 125 Mg/2 Ml Vial) 60 mg IVPUSH Q8H [facility] Last Admin: 07/22/23 08:12 Dose: 60 mg Documented By: GETACHEW Naloxone HCl (Naloxone Hcl 0.4 Mg/Ml Vial) 0.2 mg IVPUSH Q2M PRN PRN Reason: Excessive sedation or RR < 8 Omeprazole (Omeprazole 40 Mg Capsule.Dr) 40 mg PO DAILY@0630 [facility] Last Admin: 07/22/23 06:15 Dose: 40 mg Documented By: THADDEUS Labs 07/22/23 06:25 07/22/23 06:25 Labs: Laboratory Results - last 24 hr 07/21/23 07/21/23 07/21/23 11:27 16:31 19:54 MCV MCH MCHC RDW Plt Count MPV Immature Gran % (Auto) Neut % (Auto) Lymph % (Auto) [place] % (Auto) Eos % (Auto) Baso % (Auto) Lymph # (Auto) [place] # (Auto) Eos # (Auto) Baso # (Auto) Abs Immat Gran (auto) Absolute Neuts (auto) Absolute Nucleated RBC Nucleated RBC % (auto) Smear Tech's Comments VBG pH VBG pCO2 VBG pO2 VBG HCO3 VBG O2 Saturation VBG Base Excess Anion Gap Estim Creat Clear Calc Estimated GFR POC Glucose 339 H 331 H 402 H* Random Glucose Calcium 07/21/23 07/22/23 07/22/23 22:50 06:25 07:19 MCV 91.1 MCH 29.7 MCHC 32.6 RDW 13.3 Plt Count 278 MPV 9.2 L Immature Gran % (Auto) 2.8 H Neut % (Auto) 93.1 H Lymph % (Auto) 1.4 L [place] % (Auto) 2.4 Eos % (Auto) 0.0 Baso % (Auto) 0.3 Lymph # (Auto) 0.3 L [place] # (Auto) 0.5 Eos # (Auto) 0.0 Baso # (Auto) 0.1 Abs Immat Gran (auto) 0.52 H Absolute Neuts (auto) 17.2 H Absolute Nucleated RBC 0.000 Nucleated RBC % (auto) 0.0 Smear Tech's Comments VERIFIED VBG pH 7.54 H VBG pCO2 51 VBG pO2 92 VBG HCO3 44 H VBG O2 Saturation 98.0 VBG Base Excess 18.9 Anion Gap 18 Estim Creat Clear Calc 86.4 Estimated GFR > 60 POC Glucose 328 H Random Glucose 353 H* Calcium 10.0 Microbiology Microbiology Results: Microbiology 07/16/23 11:52 Blood Culture - Final Blood - Venous No growth after 5 days. 07/16/23 11:52 Blood Culture - Final Blood - Venous No growth after 5 days. Assessment and Plan (1) Obesity hypoventilation syndrome: Status: Acute (2) COPD (chronic obstructive pulmonary disease): Status: Acute (3) Pneumonia: Status: Acute (4) Acute on chronic respiratory failure with hypoxia and hypercapnia: Status: Acute Plan 53 year old female with history of chronic hypoxic and hypercarbic respiratory failure on 2 L nasal cannula and BiPAP at night, CHITO/OHS/asthma/COPD overlap, chronic methadone use, diabetes, recurrent admissions for respiratory failure who was brought in by ambulance for headache and nausea found to be hypoxic, placed on BiPAP but failed to improve and was ultimately intubated in the emergency department on July 15 and transferred to the ICU for further care. Her imaging showed evidence of bronchopneumonia and she was treated with vancomycin/cefepime as well as steroids and breathing treatments for COPD exacerbation. In addition she was started on IV lasix for component of CHF. She was Extubated July 17 and downgraded to the medical floor July 18. Acute on chronic hypercarbic and hypoxic respiratory failure Multifactorial due to COPD exacerbation, bronchopneumonia, obesity hypoventilation,and exacerbation of HFpEF Continue BiPAP q.h.s. Continue supplemental oxygen, 2 L at baseline further management as below normal ABG's, repeat CXR showing improvement Bronchopneumonia initially treated with IV cefepime and vancomycin. Sputum culture growing Haemophilus influenzae, will change to IV ceftriaxone; MRSA nares negative, vanco stopped blood cultures negative to date afebrile, leukocytosis due to steroids Acute on chronic HFpEF continue IV lasix low sodium diet follow Is&Os acute exacerbation of COPD IV solu-medrol weaned to q8h Continue scheduled and p.r.n. breathing treatments continue supplemental o2 2L NC Diabetes with hyperglycemia due to steroids Was on regular diet, will change to diabetic diet Continue home dose of Lantus Continue sliding scale, follow-up point of care sugars scheduled meal time insulin added, BS under better control monitor as steroids are weaned Metformin on hold OUD Continue methadone Morbid obesity BMI 40 Weight loss and diet modification recommended Mood continue Continue Lamictal, klonopin Hypertension Continue diltiazem, hydralazine HLD Continue statin dvt ppx - heparin Attending Dr. Jones code status - full code Quality Stroke Does the patient have a stroke diagnosis?: No VTE Prior VTE?: No VTE Risk Level:: Medical - moderate - high VTE Device Contraindication: N/A - Device Ordered VTE Drug Contraindication: N/A - Med Ordered
--- NOTE | 2023-07-22 10:18 | MHC.SL.DTX ---
Dysphagia Diet modifications: Last documented Solid diet consistencies: Regular Last documented Liquid consistency: THIN Changes made to current diet?: No Liquid Consistency and Strategies: Liquid Intake Recommendation: Thin Compensatory Strategies for Safe Swallow: Small Sips Unrestricted Compensatory Strategies for Safe Swallow(b): Sitting Upright (90 deg) Small Bites and Sips Alternate Liquids/Solids Rate of Ingestion Change Solid Food Consistency: Dietary Recommendations: Regular Additional Modifications to Solids: Recommend CONTINUE REGULAR SOLIDS and THIN LIQUIDS. MEDS WHOLE with PUREE, or LIQUID, as tolerated. Intermittent Supervision for overt s/s of aspiration. No further LABELING STRATEGIST intervention required at this time, please re-consult if status changes. Oral Medication Intake: Whole with Liquid Strategies and Precautions to be Taken for Safe Swallow: Sitting Upright (90 deg) Small Bites and Sips Alternate Liquids/Solids Rate of Ingestion Change Supervision While Eating and/Drinking: Intermittent Supervision Foods to Avoid: Swallowing Recommended Treatments: Compens. Strategy Educat. Recommendation for Speech: Inpatient Speech Therapy Frequency/Duration: Daily Timeline to reassess: PRN Additional Comments: Patient extubated 5/3, on NC at the time of this exam. LABELING STRATEGIST recc /3 chopped (NDD3) solids and nectar thick liquids. Diet order is presently regular texture and thin liquids per EMR. Treatment: Pt continues to tolerate Regular Solids and Thin Liquids. She does endorse history of Dysphagia prior to intubation/extubation, but that she manages it by eating small amounts at a time. Reports are consistent with esophageal dysmotility/GERD. Optimal positioning was difficulty to to Pt anatomy. She was placed upright at about 45 degrees. She tolerates Thin Liquids via straw with no overt s/s of aspiration. She tolerated bites of regular, dry cracker with adequate oral preparation and clearance with no overt s/s of aspiration. Given >48hr tolerance of Regular Solids and consistent performance with LABELING STRATEGIST, no further intervention is indicated at this time. Please re-refer if status changes. Assessment: Electrophysiology Technologist Clinican/Clinical Fellow: No Supervisory Statement: I have reviewed and agree with the student/clinical fellow's documentation: N/A Speech Language Pathologist: Christopher Alexandra M.A., [facility]-LABELING STRATEGIST
[2023-07-22 10:44] LABS: B Type Natriuretic Peptide 33 pg/mL (<100)
[2023-07-22 11:44] LABS: Glucose, Whole Blood 363 mg/dL (60-115)
[2023-07-22 16:21] LABS: Glucose, Whole Blood 323 mg/dL (60-115)
[2023-07-22] MEDS: clonazePAM 1 MG TABLET PO (17:05)
[2023-07-22 20:08] LABS: Glucose, Whole Blood 280 mg/dL (60-115)
[2023-07-22] MEDS: cefTRIAXone sodium 2 GM in 0.9 % Sodium Chloride 50 ML IV (22:32)
[2023-07-22] MEDS: Atorvastatin Calcium 20 MG TABLET PO (22:33)
[2023-07-22] MEDS: Insulin Glargine,Hum.rec.anlog 100 UNIT/ML 10 ML VIAL 45 UNIT SUBCUT (22:33)
[2023-07-23] VITALS (21 sets, daily range): BP systolic 138–166; BP diastolic 88–93; PULSE 103–131; RESP 15–25; TEMP 36.1–37.1; O2SAT 86–95; BMI 37.0
--- NOTE | 2023-07-23 | ECG_ITS ---
Test Reason : sob Blood Pressure : / mmHG Vent. Rate : 127 BPM Atrial Rate : 127 BPM P-R Int : 126 ms QRS Dur : 114 ms QT Int : 326 ms P-R-T Axes : 061 004 074 degrees QTc Int : 473 ms Sinus tachycardia with occasional Premature ventricular complexes Incomplete right bundle branch block Inferior infarct (cited on or before 23-JUL-2023) ST & T wave abnormality, consider anterior ischemia Abnormal ECG When compared with ECG of 16-JUL-2023 12:20, Premature ventricular complexes are now Present Non-specific change in ST segment in Anterior leads T wave inversion now evident in Anterior leads Referred By: China Brito Electronically Signed By:Harris Phillips
[2023-07-23] MEDS: Albuterol/Iprat 2.5/0.5MG 3 ML AMPUL.NEB INHALE ×6 (02:47→23:45)
[2023-07-23] MEDS: clonazePAM 1 MG TABLET PO ×2 (04:55→22:01)
[2023-07-23] MEDS: Omeprazole 40 MG CAPSULE.DR PO (04:55)
[2023-07-23] MEDS: Heparin Sodium,Porcine 5,000 UNIT/ML VIAL 5000 UNIT SUBCUT ×3 (04:55→19:56)
[2023-07-23 07:27] LABS: Basophils Absolute Auto 0.1 X10*3/uL (0.0-0.2); Basophils Percent Auto 0.3 % (0-2); Hematocrit 39.2 % (37.0-47.0); Hemoglobin 12.8 g/dl (12.0-16.0); Imm Gran Abs Auto 0.86 X10*3/uL (0.00-0.03); Imm Gran Pct Auto 3.9 % (0.0-0.4); Lymphocytes Absolute Auto 0.3 X10*3/uL (1.2-4.9); Lymphocytes Percent Auto 1.3 % (20-40); MANUAL DIFF FLAG SCAN; Mean Corpuscular HGB Conc 32.7 g/dl (31.0-35.0); Mean Corpuscular Hemoglobin 30.3 pg (27.0-33.0); Mean Corpuscular Volume 92.9 fL (80.0-98.0); Mean Platelet Volume 9.2 fL (9.4-12.3); Monocytes Absolute Auto 0.5 X10*3/uL (0.1-1.2); NRBC Pct Auto 0.1 /100WBC (0.0-0.2); Neutrophils Absolute Auto 20.4 x10*3/uL (2.0-8.3); Neutrophils Percent Auto 92.5 % (45-73); Platelet Count 259 X10*3/uL (160-400); Red Blood Count 4.22 X10*6/uL (4.20-5.50); Red Cell Distribution Width 13.4 % (11.0-16.0); SCAN SMEAR FLAG 1; White Blood Count 22.1 X10*3/uL (4.8-10.8)
[2023-07-23 07:34] LABS: Anion Gap 17 (12-20); Blood Urea Nitrogen 40 mg/dL (9-16); Calcium 9.9 mg/dL (8.4-10.2); Carbon Dioxide 38 mmol/L (22-29); Chloride 90 mmol/L (96-108); Estimated Glomerular Filt Rate > 60; Glucose Random 294 mg/dL (60-115); Potassium 3.3 mmol/L (3.3-5.1); Sodium 142 mmol/L (135-145)
[2023-07-23 07:40] LABS: Glucose, Whole Blood 268 mg/dL (60-115)
[2023-07-23] MEDS: Insulin Lispro 100 UNIT/ML 3 ML VIAL SUBCUT ×4 (07:57→19:57)
[2023-07-23] MEDS: Insulin Lispro 100 UNIT/ML 3 ML VIAL 7.5 UNIT SUBCUT ×4 (07:58→19:58)
[2023-07-23] MEDS: guaiFENesin DM 600/30 1 TAB TAB.ER.12H PO ×2 (07:59→19:55)
[2023-07-23] MEDS: hydrALAZINE HCl 25 MG TABLET PO ×3 (07:59→17:14)
[2023-07-23] MEDS: dilTIAZem HCL CD 180 MG CAP.ER.24H 360 MG PO (08:00)
[2023-07-23] MEDS: Folic Acid 1 MG TABLET PO (08:00)
[2023-07-23] MEDS: Furosemide 20 MG/2 ML VIAL IVPUSH (08:00)
[2023-07-23] MEDS: lamoTRIgine 25 MG TABLET 150 MG PO ×2 (08:01→19:55)
[2023-07-23] MEDS: methylPREDNISolone Sod Succ 125 MG/2 ML VIAL 60 MG IVPUSH (08:01)
[2023-07-23] MEDS: azaTHIOprine 50 MG TABLET 100 MG PO (08:03)
[2023-07-23] MEDS: methADONE HCl 20 MG/2 ML ORAL.CONC 50 MG PO (08:03)
--- NOTE | 2023-07-23 08:14 | P.PNIM_ITS ---
Subjective Subjective Date of Service: 07/23/23 Interval History: Seen and examined this morning Follow-up for respiratory failure, COPD, pneumonia, fluid overload Appears dyspneic, reports sob, weakness, cough, no fever or chills Review of Systems Review of Systems: Yes all other systems are reviewed and are negative Constitutional Constitutional: Denies chills and Denies fever(s) Cardiovascular Cardiovascular: Denies chest pain, Denies palpitations and Reports dyspnea Respiratory Respiratory: Reports cough and Reports dyspnea Gastrointestinal Gastrointestinal: Denies abdominal pain, Denies nausea and Denies vomiting Endocrine Endocrine: Denies palpitations Physical Exam 2 Vital Signs: Vital Signs: Last Vital Signs Temp 98.8 F 07/23/23 04:00 Pulse 108 H 07/23/23 08:00 Resp 19 07/23/23 07:25 BP 158/90 H 07/23/23 08:00 Pulse Ox 90 L 07/23/23 03:49 O2 Del Method BiPAP 07/23/23 03:49 O2 Flow Rate 2 07/22/23 23:00 FiO2 30 07/23/23 04:00 Oxygen Flow Rate 2 07/16/23 10:35 BMI result Body Mass Index 37.0 Appearing in no acute distress lung sounds diminished heart regular rate rhythm, clear S1, S2 positive bowel sounds, abdomen is soft, nontender neuro patient is alert x3, no focal deficits Objective Data Active Medications Albuterol/Ipratropium (Albuterol/Iprat 2.5/0.5mg 3 Ml Ampul.Neb) 3 ml INHALE RQ4H [facility] Last Admin: 07/23/23 07:24 Dose: 3 ml Documented By: ROMULO Albuterol/Ipratropium (Albuterol/Iprat 2.5/0.5mg 3 Ml Ampul.Neb) 3 ml INHALE Q4H PRN PRN Reason: Wheezing Atorvastatin Calcium (Atorvastatin Calcium 20 Mg Tablet) 20 mg PO BEDTIME [facility] Last Admin: 07/22/23 22:33 Dose: 20 mg Documented By: JAYME Azathioprine (Azathioprine 50 Mg Tablet) 100 mg PO DAILY [facility] Last Admin: 07/23/23 08:03 Dose: 100 mg Documented By: CHANI Clonazepam (Clonazepam 1 Mg Tablet) 1 mg PO BID PRN PRN Reason: Anxiety Last Admin: 07/23/23 04:55 Dose: 1 mg Documented By: JAYME Comments: anxiety Diltiazem HCl (Diltiazem Hcl Cd 180 Mg Cap.Er.24h) 360 mg PO DAILY [facility]; Protocol Last Admin: 07/23/23 08:00 Dose: 360 mg Documented By: CHANI Folic Acid (Folic Acid 1 Mg Tablet) 1 mg PO DAILY [facility] Last Admin: 07/23/23 08:00 Dose: 1 mg Documented By: CHANI Furosemide (Furosemide 20 Mg/2 Ml Vial) 20 mg IVPUSH BID@0900,1800 [facility]; Protocol Last Admin: 07/23/23 08:00 Dose: 20 mg Documented By: CHANI Glucose (Glucose Gel 15 Gm Gel..Gram.) 15 gm PO Q15M PRN; Protocol PRN Reason: per Hypoglycemia Standing Ord. Guaifenesin/Dextromethorphan (Guaifenesin Dm 600/30 1 Tab Tab.Er.12h) 1 tab PO BID [facility] Last Admin: 07/23/23 07:59 Dose: 1 tab Documented By: CHANI Heparin Sodium (Porcine) (Heparin Sodium,Porcine 5,000 Unit/Ml Vial) 5,000 unit SUBCUT Q8H [facility] Last Admin: 07/23/23 04:55 Dose: 5,000 unit Documented By: JAYME Hydralazine HCl (Hydralazine Hcl 25 Mg Tablet) 25 mg PO TIDWM [facility]; Protocol Last Admin: 07/23/23 07:59 Dose: 25 mg Documented By: CHANI Hydralazine HCl (Hydralazine Hcl 20 Mg/Ml Vial) 10 mg IVPUSH Q6H PRN; Protocol PRN Reason: Hypertension Last Admin: 07/21/23 20:15 Dose: 10 mg Documented By: MORENO Dextrose (D10) 250 mls @ 750 mls/hr IV Q15M PRN; Protocol PRN Reason: per Hypoglycemia Standing Ord. Ceftriaxone Sodium 2 gm/ (Sodium Chloride) 50 mls @ 100 mls/hr IV Q24H [facility] Last Infusion: 07/23/23 00:14 Dose: Infused Documented By: JAYME Insulin Glargine (Insulin Glargine,Hum.Rec.Anlog 100 Unit/Ml 10 Ml Vial) 45 unit SUBCUT BEDTIME [facility] Last Admin: 07/22/23 22:33 Dose: 45 unit Documented By: JAYME Insulin Human Lispro (Insulin Lispro 100 Unit/Ml 3 Ml Vial) 0 unit SUBCUT QIDACHS [facility]; Protocol Last Admin: 07/23/23 07:57 Dose: 6 unit Documented By: CHANI Insulin Human Lispro (Insulin Lispro 100 Unit/Ml 3 Ml Vial) 7.5 unit SUBCUT QIDAS [facility] Last Admin: 07/23/23 07:58 Dose: 7.5 unit Documented By: CHANI Lamotrigine (Lamotrigine 25 Mg Tablet) 150 mg PO BID [facility] Last Admin: 07/23/23 08:01 Dose: 150 mg Documented By: CHANI Methadone HCl (Methadone Hcl 20 Mg/2 Ml Oral.Conc) 50 mg PO DAILY [facility] Last Admin: 07/23/23 08:03 Dose: 50 mg Documented By: CHANI Methylprednisolone Sodium Succinate (Methylprednisolone Sod Succ 125 Mg/2 Ml Vial) 60 mg IVPUSH Q8H [facility] Last Admin: 07/23/23 08:01 Dose: 60 mg Documented By: CHANI Naloxone HCl (Naloxone Hcl 0.4 Mg/Ml Vial) 0.2 mg IVPUSH Q2M PRN PRN Reason: Excessive sedation or RR < 8 Omeprazole (Omeprazole 40 Mg Capsule.Dr) 40 mg PO DAILY@0630 [facility] Last Admin: 07/23/23 04:55 Dose: 40 mg Documented By: JAYME Labs 07/23/23 06:42 07/23/23 06:42 Labs: Laboratory Results - last 24 hr 07/22/23 07/22/23 07/22/23 06:25 10:17 11:34 MCV 91.1 MCH 29.7 MCHC 32.6 RDW 13.3 Plt Count 278 MPV 9.2 L Immature Gran % (Auto) 2.8 H Neut % (Auto) 93.1 H Lymph % (Auto) 1.4 L [place] % (Auto) 2.4 Eos % (Auto) 0.0 Baso % (Auto) 0.3 Lymph # (Auto) 0.3 L [place] # (Auto) 0.5 Eos # (Auto) 0.0 Baso # (Auto) 0.1 Abs Immat Gran (auto) 0.52 H Absolute Neuts (auto) 17.2 H Absolute Nucleated RBC 0.000 Nucleated RBC % (auto) 0.0 Smear Tech's Comments VERIFIED Anion Gap Estim Creat Clear Calc Estimated GFR POC Glucose 363 H* Random Glucose Calcium B-Natriuretic Peptide 33 07/22/23 07/22/23 07/23/23 16:17 20:05 06:42 MCV 92.9 MCH 30.3 MCHC 32.7 RDW 13.4 Plt Count 259 MPV 9.2 L Immature Gran % (Auto) Neut % (Auto) Lymph % (Auto) [place] % (Auto) Eos % (Auto) Baso % (Auto) Lymph # (Auto) [place] # (Auto) Eos # (Auto) Baso # (Auto) Abs Immat Gran (auto) Absolute Neuts (auto) Absolute Nucleated RBC Nucleated RBC % (auto) Smear Tech's Comments Anion Gap 17 Estim Creat Clear Calc 96.0 Estimated GFR > 60 POC Glucose 323 H 280 H Random Glucose 294 H Calcium 9.9 B-Natriuretic Peptide 07/23/23 07:35 MCV MCH MCHC RDW Plt Count MPV Immature Gran % (Auto) Neut % (Auto) Lymph % (Auto) [place] % (Auto) Eos % (Auto) Baso % (Auto) Lymph # (Auto) [place] # (Auto) Eos # (Auto) Baso # (Auto) Abs Immat Gran (auto) Absolute Neuts (auto) Absolute Nucleated RBC Nucleated RBC % (auto) Smear Tech's Comments Anion Gap Estim Creat Clear Calc Estimated GFR POC Glucose 268 H Random Glucose Calcium B-Natriuretic Peptide Assessment and Plan (1) Obesity hypoventilation syndrome: Status: Acute (2) COPD (chronic obstructive pulmonary disease): Status: Acute (3) Pneumonia: Status: Acute (4) Acute on chronic respiratory failure with hypoxia and hypercapnia: Status: Acute Plan 53 year old female with history of chronic hypoxic and hypercarbic respiratory failure on 2 L nasal cannula and BiPAP at night, CHITO/OHS/asthma/COPD overlap, chronic methadone use, diabetes, recurrent admissions for respiratory failure who was brought in by ambulance for headache and nausea found to be hypoxic, placed on BiPAP but failed to improve and was ultimately intubated in the emergency department on July 15 and transferred to the ICU for further care. Her imaging showed evidence of bronchopneumonia and she was treated with vancomycin/cefepime as well as steroids and breathing treatments for COPD exacerbation. In addition she was started on IV lasix for component of CHF. She was Extubated July 17 and downgraded to the medical floor July 18. Weakness no fever or chills normal UA RPP pending Metabolic alkalosis VBG 7.54/51/92/44, some over oxygenation noted [employer] Sales Representative consultation> add diamox IV BID Acute on chronic hypercarbic and hypoxic respiratory failure Multifactorial due to COPD exacerbation, bronchopneumonia, obesity hypoventilation,and exacerbation of HFpEF Continue BiPAP q.h.s. Continue supplemental oxygen, 2 L at baseline normal ABG's, repeat CXR showing improvement reports worsening sob/tachypnea> check EKG, Trop Bronchopneumonia initially treated with IV cefepime and vancomycin. Sputum culture growing Haemophilus influenzae, will change to IV ceftriaxone; MRSA nares negative, vanco stopped blood cultures negative to date afebrile, leukocytosis due to steroids Acute on chronic HFpEF s/p IV lasix ransitioned to oral follow Is&Os acute exacerbation of COPD IV solu-medrol weaned to q8h Continue scheduled and p.r.n. breathing treatments continue supplemental o2 2L NC Diabetes with hyperglycemia due to steroids Continue home dose of Lantus, ss scheduled meal time insulin added OUD Continue methadone Morbid obesity BMI 37.0 Weight loss and diet modification recommended Mood continue Continue Lamictal, klonopin Hypertension Continue diltiazem, hydralazine HLD Continue statin dvt ppx - heparin Attending Dr. Jones code status - full code Quality Stroke Does the patient have a stroke diagnosis?: No VTE Prior VTE?: No VTE Risk Level:: Medical - moderate - high VTE Device Contraindication: N/A - Device Ordered VTE Drug Contraindication: N/A - Med Ordered
[2023-07-23 09:14] LABS: SLIDE REVIEW VERIFIED
[2023-07-23 10:08] LABS: Appearance Urine Cloudy; Color Urine Yellow; Glucose Urine UA 250 mg/dL (Negative); Leukocyte Esterase Urine Negative (Negative); Nitrite Urine Negative (Negative); Specific Gravity - Urine 1.025 (1.005-1.025); UMIC TRIGGER UACC YES; Urine Blood Small (1+) (Negative); Urine Ketones Negative (Negative); Urine Protein 30 (1+) mg/dL (Neg-Trace)
[2023-07-23 10:10] LABS: Bacteria Urine None Seen (None Seen); Hyaline Casts Urine 0-2 /LPF (0-2); RBC Urine >20 /HPF (0-2); WBC Urine 0-5 /HPF (0-5)
--- NOTE | 2023-07-23 11:02 | MHC.CM.PN ---
Per ROUNDS discussion, Patient is not yet medically cleared for dc (still on Bipap); home/resume services is the goal and CM will follow.
[2023-07-23 11:06] LABS: Troponin-I High Sensitivity 20.6 ng/L (<3.5-17.0)
[2023-07-23 11:30] LABS: Glucose, Whole Blood 284 mg/dL (60-115)
[2023-07-23] MEDS: acetaZOLAMIDE sodium 500 MG VIAL 375 MG IVPUSH ×2 (12:01→19:55)
--- NOTE | 2023-07-23 15:17 | P.CONPL_ITS ---
History of Present Illness History of Present Illness Consult date: 07/23/23 Chief complaint: Acute Respiratory failure Narrative: 53-year-old lady with underlying obesity, CHITO with hyperventilation and CO2 retention, on supplemental oxygen at 3 L, nocturnal BiPAP, asthma/COPD overlap syndrome, diabetes mellitus, opioid dependence on methadone with multiple admissions for respiratory failure admitted on 07/16/2023 with acute on chronic hypoxic and hypercapnic respiratory failure initially requiring intubation, diuresed, extubated, and transferred to general medical michel, but now still requiring significant respiratory support with intermittent BiPAP. Review of Systems 2 Constitutional: Constitutional: Reports daytime sleepiness, Denies excessive sweating, Denies fatigue, Denies fever(s), Reports lethargy, Denies malaise, Denies night sweats, Denies snoring and Denies weight loss Eyes: Eyes: Denies blurry vision and Denies itchy eyes ENT: Denies nasal congestion, Denies post nasal drip, Denies sinus pain, Denies sinus pressure and Denies other ( Thrush) Cardiovascular: Cardiovascular: Denies chest pain, Reports pedal edema, Reports dyspnea, Reports orthopnea and Reports paroxysmal nocturnal dyspnea Respiratory: Respiratory: Denies cough, Denies hemoptysis, Denies excessive phlegm production, Reports dyspnea, Denies snoring and Denies wheezing Gastrointestinal: Gastrointestinal: Denies abdominal pain and Denies heartburn Musculoskeletal: Musculoskeletal: Denies myalgias, Denies arthralgias and Denies joint swelling Integumentary/Breasts: Skin/Breast: Denies rash Neurologic: Denies memory loss and Denies seizure-like activity Psychiatric: Psychiatric: Denies abnormal sleep pattern, Denies anxiety and Denies memory loss Endocrine: Endocrine: Denies excessive sweating, Denies fatigue and Denies heat intolerance Hematologic/Lymphatic: Hematologic/Lymphatic: Denies easy bruising Allergic/Immunologic: Allergic/Immunologic: Denies itchy eyes, Denies seasonal rhinorrhea and Denies wheezing PMFSH Past Medical History Medical History (Updated 07/20/23 @ 00:01 by Background Daemon) Asthma CHITO (obstructive sleep apnea) Type 2 diabetes mellitus Opioid dependence Constipation Salmonella gastroenteritis Obesity with alveolar hypoventilation Congestive heart failure Chronic constipation Acute respiratory failure Hypertensive cardiovascular disease Pulmonary nodule Chronic respiratory failure Tobacco abuse Asthma-COPD overlap syndrome Hyperlipidemia, unspecified Essential hypertension Chronic respiratory failure Family History Family History Father Diabetes Other Asthma Surgical History Surgical History H/O tubal ligation Social History Social History Household Members: Children Household Members Other:: daughter Housing: Apartment Do you presently have visiting nurse or other home services: Yes Unable to assess alcohol history related to: Unknown Alcohol intake: never Comment: [phone] Patient Tobacco Use Status: Former Tobacco user Quit Date: February 2022 Tobacco use type: Cigarette Cigarettes Per Day: 1 Years Smoked: 35 Smoked in Last 30 Days: No e-Cigarette/Vaping Use: Currently Using Second Hand Smoke Exposure: No Use of substances other than those prescribed or required for medical reasons: Unable to respond Substance Use Type: Opiates Currently Displaying Signs/Symptoms of Drug Intoxication Withdrawal: No Advance Directives: Yes Advance Directives on File: Yes Advance Directives Date on File: 06/12/21 Recently lost weight without trying: Unsure Nutrition Risks: On aspiration precautions Patient : No : No Poor oral hygiene: No service: No Current occupational status: unemployed and disabled Meds Allergies Allergy/AdvReac Type Severity Reaction Status Date / Time No Known Allergies Allergy Verified 07/16/23 10:42 [No Known Allergies*] Active Medications: Current Medications Acetazolamide (Acetazolamide Sodium 500 Mg Vial) 375 mg IVPUSH BID [facility] Last Admin: 07/23/23 12:01 Dose: 375 mg Albuterol/Ipratropium (Albuterol/Iprat 2.5/0.5mg 3 Ml Ampul.Neb) 3 ml INHALE RQ4H [facility] Last Admin: 07/23/23 11:33 Dose: 3 ml Albuterol/Ipratropium (Albuterol/Iprat 2.5/0.5mg 3 Ml Ampul.Neb) 3 ml INHALE Q4H PRN PRN Reason: Wheezing Atorvastatin Calcium (Atorvastatin Calcium 20 Mg Tablet) 20 mg PO BEDTIME [facility] Last Admin: 07/22/23 22:33 Dose: 20 mg Azathioprine (Azathioprine 50 Mg Tablet) 100 mg PO DAILY [facility] Last Admin: 07/23/23 08:03 Dose: 100 mg Clonazepam (Clonazepam 1 Mg Tablet) 1 mg PO BID PRN PRN Reason: Anxiety Last Admin: 07/23/23 04:55 Dose: 1 mg Diltiazem HCl (Diltiazem Hcl Cd 180 Mg Cap.Er.24h) 360 mg PO DAILY [facility]; Protocol Last Admin: 07/23/23 08:00 Dose: 360 mg Folic Acid (Folic Acid 1 Mg Tablet) 1 mg PO DAILY [facility] Last Admin: 07/23/23 08:00 Dose: 1 mg Furosemide (Furosemide 20 Mg Tablet) 20 mg PO BID@0900,1800 [facility]; Protocol Last Admin: 07/23/23 10:16 Dose: Not Given Glucose (Glucose Gel 15 Gm Gel..Gram.) 15 gm PO Q15M PRN; Protocol PRN Reason: per Hypoglycemia Standing Ord. Guaifenesin/Dextromethorphan (Guaifenesin Dm 600/30 1 Tab Tab.Er.12h) 1 tab PO BID [facility] Last Admin: 07/23/23 07:59 Dose: 1 tab Heparin Sodium (Porcine) (Heparin Sodium,Porcine 5,000 Unit/Ml Vial) 5,000 unit SUBCUT Q8H [facility] Last Admin: 07/23/23 12:00 Dose: 5,000 unit Hydralazine HCl (Hydralazine Hcl 25 Mg Tablet) 25 mg PO TIDWM [facility]; Protocol Last Admin: 07/23/23 12:00 Dose: 25 mg Hydralazine HCl (Hydralazine Hcl 20 Mg/Ml Vial) 10 mg IVPUSH Q6H PRN; Protocol PRN Reason: Hypertension Last Admin: 07/21/23 20:15 Dose: 10 mg Dextrose (D10) 250 mls @ 750 mls/hr IV Q15M PRN; Protocol PRN Reason: per Hypoglycemia Standing Ord. Ceftriaxone Sodium 2 gm/ (Sodium Chloride) 50 mls @ 100 mls/hr IV Q24H [facility] Last Infusion: 07/23/23 00:14 Dose: Infused Insulin Glargine (Insulin Glargine,Hum.Rec.Anlog 100 Unit/Ml 10 Ml Vial) 45 unit SUBCUT BEDTIME [facility] Last Admin: 07/22/23 22:33 Dose: 45 unit Insulin Human Lispro (Insulin Lispro 100 Unit/Ml 3 Ml Vial) 0 unit SUBCUT QIDACHS [facility]; Protocol Last Admin: 07/23/23 12:02 Dose: 6 unit Insulin Human Lispro (Insulin Lispro 100 Unit/Ml 3 Ml Vial) 7.5 unit SUBCUT QIDACHS [facility] Last Admin: 07/23/23 12:03 Dose: 7.5 unit Lamotrigine (Lamotrigine 25 Mg Tablet) 150 mg PO BID [facility] Last Admin: 07/23/23 08:01 Dose: 150 mg Methadone HCl (Methadone Hcl 20 Mg/2 Ml Oral.Conc) 50 mg PO DAILY [facility] Last Admin: 07/23/23 08:03 Dose: 50 mg Methylprednisolone Sodium Succinate (Methylprednisolone Sod Succ 125 Mg/2 Ml Vial) 60 mg IVPUSH Q8H [facility] Last Admin: 07/23/23 08:01 Dose: 60 mg Naloxone HCl (Naloxone Hcl 0.4 Mg/Ml Vial) 0.2 mg IVPUSH Q2M PRN PRN Reason: Excessive sedation or RR < 8 Omeprazole (Omeprazole 40 Mg Capsule.) 40 mg PO DAILY@0630 [facility] Last Admin: 07/23/23 04:55 Dose: 40 mg Home Medications ?Medication ?Instructions ?Recorded ?Confirmed ?Last Taken ?Type loratadine 10 mg tablet (Claritin) 10 mg PO DAILY 12/30/19 07/16/23 05/18/23 History montelukast 10 mg tablet 10 mg PO BEDTIME 12/30/19 07/16/23 05/18/23 History diltiazem HCl 360 mg capsule,24 360 mg PO DAILY 11/16/20 07/16/23 05/18/23 History hr,extended release (Tiadylt ER) roflumilast 500 mcg tablet 500 mcg PO DAILY 11/16/20 07/16/23 05/18/23 History (Daliresp) rosuvastatin 5 mg tablet 5 mg PO BEDTIME 11/16/20 07/16/23 05/18/23 History metformin 500 mg tablet,extended 500 mg PO DAILY 05/18/21 07/16/23 05/18/23 History release 24 hr methadone 10 mg/mL oral concentrate 50 mg PO DAILY 06/06/21 07/16/23 07/09/23 History hydralazine 25 mg tablet 25 mg PO TIDWM 11/02/21 07/16/23 05/18/23 History insulin lispro 100 unit/mL 4 unit subcut TIDAC PRN 08/07/16/23 05/18/23 History subcutaneous solution Hyperglycemia clonazepam 1 mg tablet 1 mg PO BID PRN Anxiety 06/28/22 07/16/23 Unknown History lamotrigine 150 mg tablet 150 mg PO BID 07/29/22 07/16/23 05/18/23 History calcitonin (salmon) 200 1 spray intranasal DAILY 09/30/22 07/16/23 05/18/23 History unit/actuation nasal spray insulin glargine 100 unit/mL 45 unit subcut BEDTIME 09/30/22 07/16/23 05/18/23 History subcutaneous solution (Lantus U-100 Insulin) docusate sodium 100 mg capsule 100 mg PO BID PRN constipation 10/20/22 07/16/23 Unknown History nebulizers 11/08/22 07/16/23 02/02/23 09:00 History polyethylene glycol 3350 17 17 g PO DAILY constipation 12/21/22 07/16/23 02/20/23 History gram/dose oral powder (Miralax) ammonium lactate 12 % lotion 1 appl topical DAILY Rash 02/02/23 07/16/23 05/18/23 History diclofenac sodium 1 % topical gel 4 g topical QID PRN Pain 05/04/23 07/16/23 Unknown History zolpidem 5 mg tablet 5 mg PO BEDTIME PRN Sleep 05/04/23 07/16/23 Unknown History cholecalciferol (vitamin D3) 1,250 1,250 mcg PO MOTH 05/19/23 07/16/23 Unknown History mcg (50,000 unit) capsule lidocaine 5 % topical patch 1 patch topical QAM PRN Pain 05/19/23 07/16/23 Unknown History azathioprine 50 mg tablet 100 mg PO DAILY 06/24/23 07/16/23 Unknown History prednisone 10 mg tablet See Taper PO DIRECTED 07/16/23 07/16/23 Unknown History Physical Exam 2 Vital Signs: Vital Signs: Last Vital Signs Temp 96.9 F 07/23/23 11:35 Pulse 114 H 07/23/23 11:35 Resp 24 H 07/23/23 11:35 BP 138/93 H 07/23/23 12:00 Pulse Ox 91 L 07/23/23 11:35 O2 Del Method BiPAP 07/23/23 11:35 O2 Flow Rate 2 07/22/23 23:00 FiO2 30 07/23/23 12:00 Oxygen Flow Rate 2 07/16/23 10:35 BMI result Body Mass Index 37.0 Const: General: alert and awake Nutritional Appearance: obese O rientation/consciousness: Other orientation findings ( oriented) HEENT: Head: Yes atraumatic Eyes: General: appearance normal, both eyes and all related structures S clerae: sclerae normal EOM: EOMs intact bilaterally Neck: Neck: Yes supple Lymphatic: no lymphadenopathy noted Resp: Effort & Inspection: normal respiratory effort and no use of accessory muscles Auscultation: crackles (Mild bilateral) Cardio: Rate: tachycardic Rhythm: regular rhythm Heart sounds: no gallops, no murmurs and no rubs Skin: General skin exam: other ( warm) Extrem: General: No clubbing, No cyanosis and Yes edema (1+ bilateral) Results Laboratory Findings 07/23/23 06:42 07/23/23 06:42 Abnormal lab findings: Abnormal Labs 07/16/23 07/16/23 07/16/23 11:52 12:02 14:04 WBC 13.8 H RBC 3.79 L Hgb 11.5 L Hct MCV 100.3 H MCHC 30.3 L MPV 9.1 L Immature Gran % (Auto) 1.7 H Neut % (Auto) 89.2 H Lymph % (Auto) 3.1 L Lymph # (Auto) 0.4 L Abs Immat Gran (auto) 0.24 H Absolute Neuts (auto) 12.3 H Absolute Nucleated RBC Nucleated RBC % (auto) Neutrophils % (Manual) Band Neutrophils % Lymphocytes % (Manual) Abs Neuts (Manual) Lymphocytes # (Manual) ESR 82 H ABG pH at Pt Temp ABG pO2 at Pt Temp ABG HCO3 VBG pH 7.52 H 7.29 L VBG HCO3 39 H 43 H Potassium Chloride 92 L Carbon Dioxide 37 H BUN 22 H POC Glucose Random Glucose 354 H* Calcium Phosphorus Lactate Dehydrogenase 462 H Troponin I High Sens C-Reactive Protein 10.74 H B-Natriuretic Peptide Albumin TSH 0.22 L Ur Specific [place] Urine Protein Urine Glucose (UA) Urine Blood Urine RBC Random Vancomycin Urine Methadone Screen 07/16/23 07/16/23 07/16/23 16:41 16:48 21:44 WBC RBC Hgb Hct MCV MCHC MPV Immature Gran % (Auto) Neut % (Auto) Lymph % (Auto) Lymph # (Auto) Abs Immat Gran (auto) Absolute Neuts (auto) Absolute Nucleated RBC Nucleated RBC % (auto) Neutrophils % (Manual) Band Neutrophils % Lymphocytes % (Manual) Abs Neuts (Manual) Lymphocytes # (Manual) ESR ABG pH at Pt Temp ABG pO2 at Pt Temp ABG HCO3 VBG pH 7.30 L 7.57 H VBG HCO3 44 H 44 H Potassium Chloride Carbon Dioxide BUN POC Glucose Random Glucose Calcium Phosphorus Lactate Dehydrogenase Troponin I High Sens C-Reactive Protein B-Natriuretic Peptide Albumin TSH Ur Specific [place] >= 1.030 H Urine Protein 30 (1+) H Urine Glucose (UA) >=1000 H Urine Blood Urine RBC Random Vancomycin Urine Methadone Screen Positive H 07/17/23 07/17/23 07/17/23 00:06 05:35 05:37 WBC RBC 3.41 L Hgb 10.3 L Hct 33.5 L MCV 98.2 H MCHC 30.7 L MPV 9.0 L Immature Gran % (Auto) 3.0 H Neut % (Auto) 85.1 H Lymph % (Auto) 4.9 L Lymph # (Auto) 0.5 L Abs Immat Gran (auto) 0.31 H Absolute Neuts (auto) 9.0 H Absolute Nucleated RBC 0.040 H Nucleated RBC % (auto) 0.4 H Neutrophils % (Manual) Band Neutrophils % Lymphocytes % (Manual) Abs Neuts (Manual) Lymphocytes # (Manual) ESR ABG pH at Pt Temp ABG pO2 at Pt Temp ABG HCO3 VBG pH 7.65 H* VBG HCO3 39 H Potassium Chloride Carbon Dioxide 31 H BUN 19 H POC Glucose 172 H Random Glucose Calcium Phosphorus 1.2 L Lactate Dehydrogenase Troponin I High Sens C-Reactive Protein B-Natriuretic Peptide Albumin 3.3 L TSH Ur Specific [place] Urine Protein Urine Glucose (UA) Urine Blood Urine RBC Random Vancomycin Urine Methadone Screen 07/17/23 07/17/23 07/17/23 07:19 09:20 09:22 WBC RBC Hgb Hct MCV MCHC MPV Immature Gran % (Auto) Neut % (Auto) Lymph % (Auto) Lymph # (Auto) Abs Immat Gran (auto) Absolute Neuts (auto) Absolute Nucleated RBC Nucleated RBC % (auto) Neutrophils % (Manual) Band Neutrophils % Lymphocytes % (Manual) Abs Neuts (Manual) Lymphocytes # (Manual) ESR ABG pH at Pt Temp 7.56 H 7.56 H ABG pO2 at Pt Temp 43 L* 77 L ABG HCO3 39 H 37 H VBG pH VBG HCO3 Potassium Chloride Carbon Dioxide BUN POC Glucose Random Glucose Calcium Phosphorus Lactate Dehydrogenase Troponin I High Sens C-Reactive Protein B-Natriuretic Peptide Albumin TSH Ur Specific [place] Urine Protein Urine Glucose (UA) Urine Blood Urine RBC Random Vancomycin 11.9 L Urine Methadone Screen 07/17/23 07/17/23 07/17/23 10:35 12:30 17:56 WBC RBC Hgb Hct MCV MCHC MPV Immature Gran % (Auto) Neut % (Auto) Lymph % (Auto) Lymph # (Auto) Abs Immat Gran (auto) Absolute Neuts (auto) Absolute Nucleated RBC Nucleated RBC % (auto) Neutrophils % (Manual) Band Neutrophils % Lymphocytes % (Manual) Abs Neuts (Manual) Lymphocytes # (Manual) ESR ABG pH at Pt Temp ABG pO2 at Pt Temp ABG HCO3 VBG pH VBG HCO3 38 H Potassium Chloride Carbon Dioxide BUN POC Glucose 180 H 261 H Random Glucose Calcium Phosphorus Lactate Dehydrogenase Troponin I High Sens C-Reactive Protein B-Natriuretic Peptide Albumin TSH Ur Specific [place] Urine Protein Urine Glucose (UA) Urine Blood Urine RBC Random Vancomycin Urine Methadone Screen 07/17/23 07/17/23 07/18/23 18:06 23:15 00:13 WBC RBC Hgb Hct MCV MCHC MPV Immature Gran % (Auto) Neut % (Auto) Lymph % (Auto) Lymph # (Auto) Abs Immat Gran (auto) Absolute Neuts (auto) Absolute Nucleated RBC Nucleated RBC % (auto) Neutrophils % (Manual) Band Neutrophils % Lymphocytes % (Manual) Abs Neuts (Manual) Lymphocytes # (Manual) ESR ABG pH at Pt Temp ABG pO2 at Pt Temp ABG HCO3 VBG pH 7.55 H 7.55 H VBG HCO3 36 H 43 H Potassium Chloride Carbon Dioxide BUN POC Glucose 222 H Random Glucose Calcium Phosphorus Lactate Dehydrogenase Troponin I High Sens C-Reactive Protein B-Natriuretic Peptide Albumin TSH Ur Specific [place] Urine Protein Urine Glucose (UA) Urine Blood Urine RBC Random Vancomycin Urine Methadone Screen 07/18/23 07/18/23 07/18/23 04:36 04:40 11:49 WBC 14.7 H RBC 3.59 L Hgb 10.9 L Hct 34.5 L MCV MCHC MPV 8.9 L Immature Gran % (Auto) 2.3 H Neut % (Auto) 91.9 H Lymph % (Auto) 1.8 L Lymph # (Auto) 0.3 L Abs Immat Gran (auto) 0.34 H Absolute Neuts (auto) 13.5 H Absolute Nucleated RBC 0.040 H Nucleated RBC % (auto) 0.3 H Neutrophils % (Manual) Band Neutrophils % Lymphocytes % (Manual) Abs Neuts (Manual) Lymphocytes # (Manual) ESR ABG pH at Pt Temp ABG pO2 at Pt Temp ABG HCO3 VBG pH 7.49 H VBG HCO3 41 H Potassium Chloride 95 L Carbon Dioxide 33 H BUN 20 H POC Glucose 295 H Random Glucose 227 H Calcium Phosphorus Lactate Dehydrogenase Troponin I High Sens C-Reactive Protein B-Natriuretic Peptide Albumin TSH Ur Specific [place] Urine Protein Urine Glucose (UA) Urine Blood Urine RBC Random Vancomycin Urine Methadone Screen 07/18/23 07/18/23 07/18/23 17:18 20:50 21:16 WBC RBC Hgb Hct MCV MCHC MPV Immature Gran % (Auto) Neut % (Auto) Lymph % (Auto) Lymph # (Auto) Abs Immat Gran (auto) Absolute Neuts (auto) Absolute Nucleated RBC Nucleated RBC % (auto) Neutrophils % (Manual) Band Neutrophils % Lymphocytes % (Manual) Abs Neuts (Manual) Lymphocytes # (Manual) ESR ABG pH at Pt Temp ABG pO2 at Pt Temp ABG HCO3 VBG pH VBG HCO3 Potassium Chloride Carbon Dioxide BUN POC Glucose 376 H* 241 H Random Glucose Calcium Phosphorus Lactate Dehydrogenase Troponin I High Sens C-Reactive Protein B-Natriuretic Peptide Albumin TSH Ur Specific [place] Urine Protein Urine Glucose (UA) Urine Blood Urine RBC Random Vancomycin 8.7 L Urine Methadone Screen 07/19/23 07/19/23 07/19/23 00:04 05:53 07:42 WBC 17.9 H RBC Hgb Hct MCV MCHC MPV 9.0 L Immature Gran % (Auto) Neut % (Auto) Lymph % (Auto) Lymph # (Auto) Abs Immat Gran (auto) Absolute Neuts (auto) Absolute Nucleated RBC 0.070 H Nucleated RBC % (auto) 0.4 H Neutrophils % (Manual) 84 H Band Neutrophils % 9 H Lymphocytes % (Manual) 3 L Abs Neuts (Manual) 16.6 H Lymphocytes # (Manual) 0.5 L ESR ABG pH at Pt Temp ABG pO2 at Pt Temp ABG HCO3 VBG pH VBG HCO3 Potassium Chloride 94 L Carbon Dioxide 35 H BUN 31 H POC Glucose 289 H 258 H Random Glucose 302 H Calcium 10.3 H Phosphorus Lactate Dehydrogenase Troponin I High Sens C-Reactive Protein B-Natriuretic Peptide Albumin TSH Ur Specific [place] Urine Protein Urine Glucose (UA) Urine Blood Urine RBC Random Vancomycin Urine Methadone Screen 07/19/23 07/19/23 07/19/23 07:45 11:59 12:01 WBC RBC Hgb Hct MCV MCHC MPV Immature Gran % (Auto) Neut % (Auto) Lymph % (Auto) Lymph # (Auto) Abs Immat Gran (auto) Absolute Neuts (auto) Absolute Nucleated RBC Nucleated RBC % (auto) Neutrophils % (Manual) Band Neutrophils % Lymphocytes % (Manual) Abs Neuts (Manual) Lymphocytes # (Manual) ESR ABG pH at Pt Temp ABG pO2 at Pt Temp ABG HCO3 VBG pH 7.55 H VBG HCO3 44 H Potassium Chloride Carbon Dioxide BUN POC Glucose 528 H* 530 H* Random Glucose Calcium Phosphorus Lactate Dehydrogenase Troponin I High Sens C-Reactive Protein B-Natriuretic Peptide Albumin TSH Ur Specific [place] Urine Protein Urine Glucose (UA) Urine Blood Urine RBC Random Vancomycin Urine Methadone Screen 07/19/23 07/19/23 07/19/23 14:52 16:03 20:13 WBC RBC Hgb Hct MCV MCHC MPV Immature Gran % (Auto) Neut % (Auto) Lymph % (Auto) Lymph # (Auto) Abs Immat Gran (auto) Absolute Neuts (auto) Absolute Nucleated RBC Nucleated RBC % (auto) Neutrophils % (Manual) Band Neutrophils % Lymphocytes % (Manual) Abs Neuts (Manual) Lymphocytes # (Manual) ESR ABG pH at Pt Temp ABG pO2 at Pt Temp ABG HCO3 VBG pH VBG HCO3 Potassium Chloride Carbon Dioxide BUN POC Glucose 326 H 294 H Random Glucose Calcium Phosphorus Lactate Dehydrogenase Troponin I High Sens C-Reactive Protein B-Natriuretic Peptide 127 H Albumin TSH Ur Specific [place] Urine Protein Urine Glucose (UA) Urine Blood Urine RBC Random Vancomycin Urine Methadone Screen 07/19/23 07/20/23 07/20/23 21:12 07:10 07:21 WBC 18.6 H RBC Hgb Hct MCV MCHC MPV 9.0 L Immature Gran % (Auto) 2.8 H Neut % (Auto) 91.4 H Lymph % (Auto) 2.3 L Lymph # (Auto) 0.4 L Abs Immat Gran (auto) 0.52 H Absolute Neuts (auto) 17.0 H Absolute Nucleated RBC 0.050 H Nucleated RBC % (auto) 0.3 H Neutrophils % (Manual) Band Neutrophils % Lymphocytes % (Manual) Abs Neuts (Manual) Lymphocytes # (Manual) ESR ABG pH at Pt Temp ABG pO2 at Pt Temp ABG HCO3 VBG pH VBG HCO3 Potassium Chloride 91 L Carbon Dioxide 35 H BUN 39 H POC Glucose 241 H Random Glucose 263 H Calcium 10.7 H Phosphorus Lactate Dehydrogenase Troponin I High Sens C-Reactive Protein B-Natriuretic Peptide Albumin TSH Ur Specific [place] Urine Protein Urine Glucose (UA) Urine Blood Urine RBC Random Vancomycin 27.9 H* 12.0 L Urine Methadone Screen 07/20/23 07/20/23 07/20/23 10:48 15:51 20:38 WBC RBC Hgb Hct MCV MCHC MPV Immature Gran % (Auto) Neut % (Auto) Lymph % (Auto) Lymph # (Auto) Abs Immat Gran (auto) Absolute Neuts (auto) Absolute Nucleated RBC Nucleated RBC % (auto) Neutrophils % (Manual) Band Neutrophils % Lymphocytes % (Manual) Abs Neuts (Manual) Lymphocytes # (Manual) ESR ABG pH at Pt Temp ABG pO2 at Pt Temp ABG HCO3 VBG pH VBG HCO3 Potassium Chloride Carbon Dioxide BUN POC Glucose 258 H 320 H 345 H Random Glucose Calcium Phosphorus Lactate Dehydrogenase Troponin I High Sens C-Reactive Protein B-Natriuretic Peptide Albumin TSH Ur Specific [place] Urine Protein Urine Glucose (UA) Urine Blood Urine RBC Random Vancomycin Urine Methadone Screen 07/21/23 07/21/23 07/21/23 07:00 07:23 11:27 WBC 17.4 H RBC 4.19 L Hgb Hct MCV MCHC MPV Immature Gran % (Auto) 3.0 H Neut % (Auto) 91.3 H Lymph % (Auto) 1.9 L Lymph # (Auto) 0.3 L Abs Immat Gran (auto) 0.52 H Absolute Neuts (auto) 15.9 H Absolute Nucleated RBC 0.020 H Nucleated RBC % (auto) Neutrophils % (Manual) Band Neutrophils % Lymphocytes % (Manual) Abs Neuts (Manual) Lymphocytes # (Manual) ESR ABG pH at Pt Temp ABG pO2 at Pt Temp ABG HCO3 VBG pH VBG HCO3 Potassium Chloride 91 L Carbon Dioxide 37 H BUN 41 H POC Glucose 333 H 339 H Random Glucose 370 H* Calcium 10.5 H Phosphorus Lactate Dehydrogenase Troponin I High Sens C-Reactive Protein B-Natriuretic Peptide Albumin TSH Ur Specific [place] Urine Protein Urine Glucose (UA) Urine Blood Urine RBC Random Vancomycin Urine Methadone Screen 07/21/23 07/21/23 07/21/23 16:31 19:54 22:50 WBC RBC Hgb Hct MCV MCHC MPV Immature Gran % (Auto) Neut % (Auto) Lymph % (Auto) Lymph # (Auto) Abs Immat Gran (auto) Absolute Neuts (auto) Absolute Nucleated RBC Nucleated RBC % (auto) Neutrophils % (Manual) Band Neutrophils % Lymphocytes % (Manual) Abs Neuts (Manual) Lymphocytes # (Manual) ESR ABG pH at Pt Temp ABG pO2 at Pt Temp ABG HCO3 VBG pH 7.54 H VBG HCO3 44 H Potassium Chloride Carbon Dioxide BUN POC Glucose 331 H 402 H* Random Glucose Calcium Phosphorus Lactate Dehydrogenase Troponin I High Sens C-Reactive Protein B-Natriuretic Peptide Albumin TSH Ur Specific [place] Urine Protein Urine Glucose (UA) Urine Blood Urine RBC Random Vancomycin Urine Methadone Screen 07/22/23 07/22/23 07/22/23 06:25 07:19 11:34 WBC 18.5 H RBC Hgb Hct MCV MCHC MPV 9.2 L Immature Gran % (Auto) 2.8 H Neut % (Auto) 93.1 H Lymph % (Auto) 1.4 L Lymph # (Auto) 0.3 L Abs Immat Gran (auto) 0.52 H Absolute Neuts (auto) 17.2 H Absolute Nucleated RBC Nucleated RBC % (auto) Neutrophils % (Manual) Band Neutrophils % Lymphocytes % (Manual) Abs Neuts (Manual) Lymphocytes # (Manual) ESR ABG pH at Pt Temp ABG pO2 at Pt Temp ABG HCO3 VBG pH VBG HCO3 Potassium 3.0 L D Chloride 88 L Carbon Dioxide 37 H BUN 41 H POC Glucose 328 H 363 H* Random Glucose 353 H* Calcium Phosphorus Lactate Dehydrogenase Troponin I High Sens C-Reactive Protein B-Natriuretic Peptide Albumin TSH Ur Specific [place] Urine Protein Urine Glucose (UA) Urine Blood Urine RBC Random Vancomycin Urine Methadone Screen 07/22/23 07/22/23 07/23/23 16:17 20:05 06:42 WBC 22.1 H RBC Hgb Hct MCV MCHC MPV 9.2 L Immature Gran % (Auto) 3.9 H Neut % (Auto) 92.5 H Lymph % (Auto) 1.3 L Lymph # (Auto) 0.3 L Abs Immat Gran (auto) 0.86 H Absolute Neuts (auto) 20.4 H Absolute Nucleated RBC 0.020 H Nucleated RBC % (auto) Neutrophils % (Manual) Band Neutrophils % Lymphocytes % (Manual) Abs Neuts (Manual) Lymphocytes # (Manual) ESR ABG pH at Pt Temp ABG pO2 at Pt Temp ABG HCO3 VBG pH VBG HCO3 Potassium Chloride 90 L Carbon Dioxide 38 H BUN 40 H POC Glucose 323 H 280 H Random Glucose 294 H Calcium Phosphorus Lactate Dehydrogenase Troponin I High Sens C-Reactive Protein B-Natriuretic Peptide Albumin TSH Ur Specific [place] Urine Protein Urine Glucose (UA) Urine Blood Urine RBC Random Vancomycin Urine Methadone Screen 07/23/23 07/23/23 07/23/23 07:35 08:49 09:46 WBC RBC Hgb Hct MCV MCHC MPV Immature Gran % (Auto) Neut % (Auto) Lymph % (Auto) Lymph # (Auto) Abs Immat Gran (auto) Absolute Neuts (auto) Absolute Nucleated RBC Nucleated RBC % (auto) Neutrophils % (Manual) Band Neutrophils % Lymphocytes % (Manual) Abs Neuts (Manual) Lymphocytes # (Manual) ESR ABG pH at Pt Temp ABG pO2 at Pt Temp ABG HCO3 VBG pH VBG HCO3 Potassium Chloride Carbon Dioxide BUN POC Glucose 268 H Random Glucose Calcium Phosphorus Lactate Dehydrogenase Troponin I High Sens 20.6 H D C-Reactive Protein B-Natriuretic Peptide Albumin TSH Ur Specific [place] Urine Protein 30 (1+) H Urine Glucose (UA) 250 H Urine Blood Small (1+) H Urine RBC >20 H Random Vancomycin Urine Methadone Screen 07/23/23 11:21 WBC RBC Hgb Hct MCV MCHC MPV Immature Gran % (Auto) Neut % (Auto) Lymph % (Auto) Lymph # (Auto) Abs Immat Gran (auto) Absolute Neuts (auto) Absolute Nucleated RBC Nucleated RBC % (auto) Neutrophils % (Manual) Band Neutrophils % Lymphocytes % (Manual) Abs Neuts (Manual) Lymphocytes # (Manual) ESR ABG pH at Pt Temp ABG pO2 at Pt Temp ABG HCO3 VBG pH VBG HCO3 Potassium Chloride Carbon Dioxide BUN POC Glucose 284 H Random Glucose Calcium Phosphorus Lactate Dehydrogenase Troponin I High Sens C-Reactive Protein B-Natriuretic Peptide Albumin TSH Ur Specific [place] Urine Protein Urine Glucose (UA) Urine Blood Urine RBC Random Vancomycin Urine Methadone Screen Microbiology: Microbiology 07/16/23 11:52 Blood - Venous Blood Culture - Final No growth after 5 days. 07/16/23 11:52 Blood - Venous Blood Culture - Final No growth after 5 days. 07/16/23 21:39 Sputum - Suctioned Gram Stain - Final 07/16/23 21:39 Sputum - Suctioned Sputum Culture - Final Haemophilus influenzae Assessment and Plan (1) COPD (chronic obstructive pulmonary disease): Status: Acute (2) CHITO (obstructive sleep apnea): Status: Acute (3) Obesity hypoventilation syndrome: Status: Acute (4) Acute on chronic respiratory failure with hypoxia and hypercapnia: Status: Acute (5) Pulmonary edema: Status: Resolved Plan Impression: 53-year-old lady admitted with exacerbation of underlying asthma/COPD/obesity hypoventilation syndrome resultant acute on chronic hypoxic and hypercapnic respiratory failure requiring initially ventilatory support, now still with significant respiratory difficulties requiring on and off BiPAP support. No evidence of acute CO2 retention. Does have increased workup breathing and lower extremity edema. Recommendations: Agree with current regimen. Suggests addition acetazolamide IV 375 mg twice a day. Will switch Solu-Medrol down to 60 mg daily and suggests further tape. Procedures Date of Service Date of Service: 07/23/23
[2023-07-23 16:36] LABS: Glucose, Whole Blood 242 mg/dL (60-115)
[2023-07-23] MEDS: Furosemide 20 MG TABLET PO (17:13)
[2023-07-23 19:53] LABS: Glucose, Whole Blood 259 mg/dL (60-115)
[2023-07-23] MEDS: Atorvastatin Calcium 20 MG TABLET PO (19:55)
[2023-07-23] MEDS: Insulin Glargine,Hum.rec.anlog 100 UNIT/ML 10 ML VIAL 45 UNIT SUBCUT (19:56)
[2023-07-23] MEDS: cefTRIAXone sodium 2 GM in 0.9 % Sodium Chloride 50 ML IV (21:56)
[2023-07-24] VITALS (18 sets, daily range): BP systolic 137–170; BP diastolic 80–98; PULSE 90–124; RESP 16–24; TEMP 35.8–36.7; O2SAT 91–97; BMI 36.8
[2023-07-24] MEDS: hydrALAZINE HCl 20 MG/ML VIAL 10 MG IVPUSH (05:34)
[2023-07-24] MEDS: Omeprazole 40 MG CAPSULE.DR PO (05:35)
[2023-07-24] MEDS: Heparin Sodium,Porcine 5,000 UNIT/ML VIAL 5000 UNIT SUBCUT ×3 (05:35→21:03)
[2023-07-24] MEDS: Albuterol/Iprat 2.5/0.5MG 3 ML AMPUL.NEB INHALE ×5 (05:59→20:31)
[2023-07-24 06:19] LABS: ABG Base Excess 14.1 mmol/L; ABG HCO3 41 mmol/L (22-26); ABG pCO2 57 mmHg (32-45); ABG pH 7.45 (7.35-7.45); ABG pO2 94 mmHg (83-108)
--- NOTE | 2023-07-24 06:21 | PM.EVENT ---
Event Note Date of Service: 07/24/23 Event Note: Rapid response was called due to dyspnea. Patient with bilateral wheezing and states that she is having difficulty breathing. Tachypnea and tachycardia +. Denies chest discomfort. Obtaining ABG and chest x-ray. Patient on BiPAP. Called respiratory for DuoNeb treatment Time Spent With Patient Time: Total time managing care of this patient today ____ minutes.
[2023-07-24 06:24] LABS: ABG Refer to POC result
[2023-07-24] MEDS: methylPREDNISolone Sod Succ 125 MG/2 ML VIAL 60 MG IVPUSH (06:26)
[2023-07-24 06:29] LABS: Basophils Absolute Auto 0.1 X10*3/uL (0.0-0.2); Basophils Percent Auto 0.4 % (0-2); Hematocrit 43.7 % (37.0-47.0); Imm Gran Abs Auto 1.09 X10*3/uL (0.00-0.03); Imm Gran Pct Auto 4.1 % (0.0-0.4); Lymphocytes Absolute Auto 1.4 X10*3/uL (1.2-4.9); Lymphocytes Percent Auto 5.1 % (20-40); MANUAL DIFF FLAG SCAN; Mean Corpuscular Hemoglobin 29.9 pg (27.0-33.0); Mean Corpuscular Volume 93.2 fL (80.0-98.0); Mean Platelet Volume 9.5 fL (9.4-12.3); Monocytes Absolute Auto 0.9 X10*3/uL (0.1-1.2); Monocytes Percent Auto 3.5 % (2-11); NRBC Pct Auto 0.3 /100WBC (0.0-0.2); Neutrophils Absolute Auto 22.9 x10*3/uL (2.0-8.3); Neutrophils Percent Auto 86.9 % (45-73); Platelet Count 285 X10*3/uL (160-400); Red Blood Count 4.69 X10*6/uL (4.20-5.50); Red Cell Distribution Width 13.6 % (11.0-16.0); SCAN SMEAR FLAG 1; White Blood Count 26.4 X10*3/uL (4.8-10.8)
[2023-07-24 06:40] LABS: Anion Gap 16 (12-20); Blood Urea Nitrogen 35 mg/dL (9-16); Calcium 10.2 mg/dL (8.4-10.2); Carbon Dioxide 35 mmol/L (22-29); Chloride 92 mmol/L (96-108); Creatinine Clr Calc Pharmacy 90.2; Estimated Glomerular Filt Rate > 60; Glucose Random 274 mg/dL (60-115); Potassium 3.7 mmol/L (3.3-5.1); Sodium 139 mmol/L (135-145)
[2023-07-24 06:49] LABS: SLIDE REVIEW VERIFIED
[2023-07-24 07:25] LABS: Glucose, Whole Blood 276 mg/dL (60-115)
[2023-07-24] MEDS: acetaZOLAMIDE sodium 500 MG VIAL 375 MG IVPUSH ×2 (08:51→22:29)
[2023-07-24] MEDS: methADONE HCl 20 MG/2 ML ORAL.CONC 50 MG PO (08:54)
[2023-07-24] MEDS: Furosemide 20 MG TABLET PO ×2 (08:55→17:30)
[2023-07-24] MEDS: hydrALAZINE HCl 25 MG TABLET PO ×3 (08:55→17:30)
[2023-07-24] MEDS: dilTIAZem HCL CD 180 MG CAP.ER.24H 360 MG PO (08:55)
[2023-07-24] MEDS: Folic Acid 1 MG TABLET PO (08:55)
[2023-07-24] MEDS: azaTHIOprine 50 MG TABLET 100 MG PO (08:57)
[2023-07-24] MEDS: lamoTRIgine 25 MG TABLET 150 MG PO ×2 (08:57→21:04)
[2023-07-24] MEDS: guaiFENesin DM 600/30 1 TAB TAB.ER.12H PO ×2 (08:57→21:04)
[2023-07-24] MEDS: Insulin Lispro 100 UNIT/ML 3 ML VIAL SUBCUT ×4 (08:58→21:02)
[2023-07-24] MEDS: Insulin Lispro 100 UNIT/ML 3 ML VIAL 7.5 UNIT SUBCUT ×4 (08:58→21:04)
--- NOTE | 2023-07-24 11:24 | P.PNPL_ITS ---
Subjective Subjective Date of Service: 07/24/23 Interval history: Respiratory status seems to be without significant changes. Hyperoxygenated. Objective Data Labs 07/24/23 06:17 07/24/23 06:17 Labs: Laboratory Results - last 24 hr 07/23/23 07/23/23 07/23/23 11:21 16:32 19:49 WBC RBC Hgb Hct MCV MCH MCHC RDW Plt Count MPV Immature Gran % (Auto) Neut % (Auto) Lymph % (Auto) [place] % (Auto) Eos % (Auto) Baso % (Auto) Lymph # (Auto) [place] # (Auto) Eos # (Auto) Baso # (Auto) Abs Immat Gran (auto) Absolute Neuts (auto) Absolute Nucleated RBC Nucleated RBC % (auto) Smear Tech's Comments Hold Blue Top O2 Saturation ABG pH at Pt Temp ABG pCO2 at Pt Temp ABG pO2 at Pt Temp ABG HCO3 ABG Base Excess (Actual) Sodium Potassium Chloride Carbon Dioxide Anion Gap BUN Creatinine Estim Creat Clear Calc Estimated GFR POC Glucose 284 H 242 H 259 H Random Glucose Calcium Hold Yellow Top 07/24/23 07/24/23 07/24/23 06:12 06:17 07:21 WBC 26.4 H RBC 4.69 Hgb 14.0 Hct 43.7 MCV 93.2 MCH 29.9 MCHC 32.0 RDW 13.6 Plt Count 285 MPV 9.5 Immature Gran % (Auto) 4.1 H Neut % (Auto) 86.9 H Lymph % (Auto) 5.1 L [place] % (Auto) 3.5 Eos % (Auto) 0.0 Baso % (Auto) 0.4 Lymph # (Auto) 1.4 [place] # (Auto) 0.9 Eos # (Auto) 0.0 Baso # (Auto) 0.1 Abs Immat Gran (auto) 1.09 H Absolute Neuts (auto) 22.9 H Absolute Nucleated RBC 0.090 H Nucleated RBC % (auto) 0.3 H Smear Tech's Comments VERIFIED Hold Blue Top SEE NOTE O2 Saturation 98.0 ABG pH at Pt Temp 7.45 ABG pCO2 at Pt Temp 57 H ABG pO2 at Pt Temp 94 ABG HCO3 41 H ABG Base Excess (Actual) 14.1 Sodium 139 Potassium 3.7 Chloride 92 L Carbon Dioxide 35 H Anion Gap 16 BUN 35 H Creatinine 0.70 Estim Creat Clear Calc 90.2 Estimated GFR > 60 POC Glucose 276 H Random Glucose 274 H Calcium 10.2 Hold Yellow Top See Note Microbiology Microbiology Results: Microbiology 07/16/23 11:52 Blood - Venous Blood Culture - Final No growth after 5 days. 07/16/23 11:52 Blood - Venous Blood Culture - Final No growth after 5 days. 07/16/23 21:39 Sputum - Suctioned Gram Stain - Final 07/16/23 21:39 Sputum - Suctioned Sputum Culture - Final Haemophilus influenzae Physical Exam 2 Vital Signs: Vital Signs: Last Vital Signs Temp 97.4 F 07/24/23 07:18 Pulse 124 H 07/24/23 11:15 Resp 18 07/24/23 11:15 BP 160/84 H 07/24/23 07:18 Pulse Ox 93 07/24/23 07:18 O2 Del Method BiPAP 07/24/23 07:18 O2 Flow Rate 5 07/23/23 19:13 FiO2 40 07/24/23 06:35 Oxygen Flow Rate 30 07/24/23 03:42 BMI result Body Mass Index 36.8 Const: General: no acute distress, alert and awake Nutritional Appearance: obese Eyes: Sclerae: sclerae normal EOM: EOMs intact bilaterally Neck: Neck: Yes no lymphadenopathy, Yes trachea midline and Yes supple Resp: Effort & Inspection: normal respiratory effort Auscultation: crackles (Mild basilar) Cardio: Rate: tachycardic Rhythm: regular rhythm Heart sounds: no gallops, no murmurs and no rubs GI: Palpation (GI): Soft to palpation and Other GI palpation findings present ( Nontender) Auscultation: normal bowel sounds Extrem: General: No clubbing, No cyanosis and Yes pedal edema (Trace bilateral) Procedures Date of Service Date of Service: 07/24/23 Assessment and Plan Assessment and plan (1) COPD (chronic obstructive pulmonary disease): Status: Acute (2) Obesity hypoventilation syndrome: Status: Acute (3) CHITO (obstructive sleep apnea): Status: Acute Plan Impression: 53-year-old lady admitted with exacerbation of underlying asthma/COPD/obesity hypoventilation syndrome resultant acute on chronic hypoxic and hypercapnic respiratory failure requiring initially ventilatory support, now still with significant respiratory difficulties requiring on and off BiPAP support. No evidence of acute CO2 retention. Does have increased workup breathing and lower extremity edema. Recommendations: Agree with current regimen including acetazolamide and steroid taper. Time Spent With Patient Time: Total time managing care of this patient today ____ minutes. Progress Note: Quality Stroke Does the patient have a stroke diagnosis?: No
[2023-07-24 11:45] LABS: Glucose, Whole Blood 337 mg/dL (60-115)
--- NOTE | 2023-07-24 12:58 | HO.PM.IMPN ---
Subjective Subjective Date of Service: 07/24/23 Interval History: seen and examined this morning Follow-up for respiratory failure History obtained with the assistance of a marketing technology coordinator had episode of increased work of breathing early this am and rapid response was called Review of Systems Review of Systems: Yes all other systems are reviewed and are negative Constitutional Constitutional: Denies chills and Denies fever(s) Cardiovascular Cardiovascular: Denies chest pain, Denies palpitations and Reports dyspnea Respiratory Respiratory: Reports dyspnea Gastrointestinal Gastrointestinal: Denies abdominal pain Endocrine Endocrine: Denies palpitations Physical Exam Vital Signs: Vital Signs: Last Vital Signs Temp 97.3 F 07/24/23 11:44 Pulse 115 H 07/24/23 11:44 Resp 18 07/24/23 11:44 BP 137/80 07/24/23 11:44 Pulse Ox 93 07/24/23 11:44 O2 Del Method Nasal Cannula 07/24/23 11:44 O2 Flow Rate 2.5 07/24/23 11:44 FiO2 40 07/24/23 06:35 Oxygen Flow Rate 30 07/24/23 03:42 BMI result Body Mass Index 36.8 Objective Data Active Medications Acetazolamide (Acetazolamide Sodium 500 Mg Vial) 375 mg IVPUSH BID [facility] Last Admin: 07/24/23 08:51 Dose: 375 mg Documented By: NAYE Albuterol/Ipratropium (Albuterol/Iprat 2.5/0.5mg 3 Ml Ampul.Neb) 3 ml INHALE Q4H PRN PRN Reason: Wheezing Last Admin: 07/24/23 05:59 Dose: 3 ml Documented By: MARYSOL Albuterol/Ipratropium (Albuterol/Iprat 2.5/0.5mg 3 Ml Ampul.Neb) 3 ml INHALE RQ4H WHILE AWAKE [facility] Last Admin: 07/24/23 11:14 Dose: 3 ml Documented By: LIBAN Atorvastatin Calcium (Atorvastatin Calcium 20 Mg Tablet) 20 mg PO BEDTIME [facility] Last Admin: 07/23/23 19:55 Dose: 20 mg Documented By: JAYME Azathioprine (Azathioprine 50 Mg Tablet) 100 mg PO DAILY [facility] Last Admin: 07/24/23 08:57 Dose: 100 mg Documented By: NAYE Diltiazem HCl (Diltiazem Hcl Cd 180 Mg Cap.Er.24h) 360 mg PO DAILY [facility]; Protocol Last Admin: 07/24/23 08:55 Dose: 360 mg Documented By: NAYE Folic Acid (Folic Acid 1 Mg Tablet) 1 mg PO DAILY [facility] Last Admin: 07/24/23 08:55 Dose: 1 mg Documented By: NAYE Furosemide (Furosemide 20 Mg Tablet) 20 mg PO BID@0900,1800 [facility]; Protocol Last Admin: 07/24/23 08:55 Dose: 20 mg Documented By: NAYE Glucose (Glucose Gel 15 Gm Gel..Gram.) 15 gm PO Q15M PRN; Protocol PRN Reason: per Hypoglycemia Standing Ord. Guaifenesin/Dextromethorphan (Guaifenesin Dm 600/30 1 Tab Tab.Er.12h) 1 tab PO BID [facility] Last Admin: 07/24/23 08:57 Dose: 1 tab Documented By: NAYE Heparin Sodium (Porcine) (Heparin Sodium,Porcine 5,000 Unit/Ml Vial) 5,000 unit SUBCUT Q8H [facility] Last Admin: 07/24/23 05:35 Dose: 5,000 unit Documented By: JAYME Hydralazine HCl (Hydralazine Hcl 25 Mg Tablet) 25 mg PO TIDWM [facility]; Protocol Last Admin: 07/24/23 11:56 Dose: 25 mg Documented By: NAYE Hydralazine HCl (Hydralazine Hcl 20 Mg/Ml Vial) 10 mg IVPUSH Q6H PRN; Protocol PRN Reason: Hypertension Last Admin: 07/24/23 05:34 Dose: 10 mg Documented By: JAYME Dextrose (D10) 250 mls @ 750 mls/hr IV Q15M PRN; Protocol PRN Reason: per Hypoglycemia Standing Ord. Ceftriaxone Sodium 2 gm/ (Sodium Chloride) 50 mls @ 100 mls/hr IV Q24H [facility] Last Infusion: 07/23/23 22:30 Dose: Infused Documented By: JAYME Insulin Glargine (Insulin Glargine,Hum.Rec.Anlog 100 Unit/Ml 10 Ml Vial) 45 unit SUBCUT BEDTIME [facility] Last Admin: 07/23/23 19:56 Dose: 45 unit Documented By: JAYME Insulin Human Lispro (Insulin Lispro 100 Unit/Ml 3 Ml Vial) 0 unit SUBCUT QIDACHS [facility]; Protocol Last Admin: 07/24/23 11:54 Dose: 8 unit Documented By: NAYE Insulin Human Lispro (Insulin Lispro 100 Unit/Ml 3 Ml Vial) 7.5 unit SUBCUT QIDAS [facility] Last Admin: 07/24/23 11:55 Dose: 7.5 unit Documented By: NAYE Lamotrigine (Lamotrigine 25 Mg Tablet) 150 mg PO BID [facility] Last Admin: 07/24/23 08:57 Dose: 150 mg Documented By: NAYE Methadone HCl (Methadone Hcl 20 Mg/2 Ml Oral.Conc) 50 mg PO DAILY [facility] Last Admin: 07/24/23 08:54 Dose: 50 mg Documented By: NAYE Methylprednisolone Sodium Succinate (Methylprednisolone Sod Succ 125 Mg/2 Ml Vial) 40 mg IVPUSH DAILY [facility] Naloxone HCl (Naloxone Hcl 0.4 Mg/Ml Vial) 0.2 mg IVPUSH Q2M PRN PRN Reason: Excessive sedation or RR < 8 Omeprazole (Omeprazole 40 Mg Capsule.Dr) 40 mg PO DAILY@0630 [facility] Last Admin: 07/24/23 05:35 Dose: 40 mg Documented By: JAYME Labs 07/24/23 06:17 07/24/23 06:17 Labs: Laboratory Results - last 24 hr 07/23/23 07/23/23 07/24/23 16:32 19:49 06:12 MCV MCH MCHC RDW Plt Count MPV Immature Gran % (Auto) Neut % (Auto) Lymph % (Auto) [place] % (Auto) Eos % (Auto) Baso % (Auto) Lymph # (Auto) [place] # (Auto) Eos # (Auto) Baso # (Auto) Abs Immat Gran (auto) Absolute Neuts (auto) Absolute Nucleated RBC Nucleated RBC % (auto) Smear Tech's Comments Hold Blue Top O2 Saturation 98.0 ABG pH at Pt Temp 7.45 ABG pCO2 at Pt Temp 57 H ABG pO2 at Pt Temp 94 ABG HCO3 41 H ABG Base Excess (Actual) 14.1 Anion Gap Estim Creat Clear Calc Estimated GFR POC Glucose 242 H 259 H Random Glucose Calcium Hold Yellow Top 07/24/23 07/24/23 07/24/23 06:17 07:21 11:41 MCV 93.2 MCH 29.9 MCHC 32.0 RDW 13.6 Plt Count 285 MPV 9.5 Immature Gran % (Auto) 4.1 H Neut % (Auto) 86.9 H Lymph % (Auto) 5.1 L [place] % (Auto) 3.5 Eos % (Auto) 0.0 Baso % (Auto) 0.4 Lymph # (Auto) 1.4 [place] # (Auto) 0.9 Eos # (Auto) 0.0 Baso # (Auto) 0.1 Abs Immat Gran (auto) 1.09 H Absolute Neuts (auto) 22.9 H Absolute Nucleated RBC 0.090 H Nucleated RBC % (auto) 0.3 H Smear Tech's Comments VERIFIED Hold Blue Top SEE NOTE O2 Saturation ABG pH at Pt Temp ABG pCO2 at Pt Temp ABG pO2 at Pt Temp ABG HCO3 ABG Base Excess (Actual) Anion Gap 16 Estim Creat Clear Calc 90.2 Estimated GFR > 60 POC Glucose 276 H 337 H Random Glucose 274 H Calcium 10.2 Hold Yellow Top See Note Assessment and Plan (1) Obesity hypoventilation syndrome: Status: Acute (2) COPD (chronic obstructive pulmonary disease): Status: Acute (3) Acute on chronic respiratory failure with hypoxia and hypercapnia: Status: Acute Plan 53 year old female with history of chronic hypoxic and hypercarbic respiratory failure on 2 L nasal cannula and BiPAP at night, CHITO/OHS/asthma/COPD overlap, chronic methadone use, diabetes, recurrent admissions for respiratory failure who was brought in by ambulance for headache and nausea found to be hypoxic, placed on BiPAP but failed to improve and was ultimately intubated in the emergency department on July 15 and transferred to the ICU for further care. Her imaging showed evidence of bronchopneumonia and she was treated with vancomycin/cefepime as well as steroids and breathing treatments for COPD exacerbation. In addition she was started on IV lasix for component of CHF. She was Extubated July 17 and downgraded to the medical floor July 18. Weakness no fever or chills normal UA RPP pending Metabolic alkalosis VBG 7.54/51/92/44, some over oxygenation noted Squirrel Worker consultation> add diamox IV BID Acute on chronic hypercarbic and hypoxic respiratory failure Multifactorial due to COPD exacerbation, bronchopneumonia, obesity hypoventilation,and exacerbation of HFpEF Continue BiPAP q.h.s. Continue supplemental oxygen, 2 L at baseline normal ABG's, repeat CXR showing improvement persistent sob, tachycardia, will obtain CTA to rule out PE trop 20 5/8, will trend; EKG similar to previous, no chest pain Bronchopneumonia initially treated with IV cefepime and vancomycin. Sputum culture growing Haemophilus influenzae, changed to IV ceftriaxone; MRSA nares negative, vanco stopped blood cultures negative to date afebrile, leukocytosis due to steroids Acute on chronic HFpEF s/p IV lasix transitioned to oral follow Is&Os acute exacerbation of COPD IV solu-medrol weaned to daily Continue scheduled and p.r.n. breathing treatments continue supplemental o2 2L NC Diabetes with hyperglycemia due to steroids Continue home dose of Lantus, ss scheduled meal time insulin added OUD Continue methadone Morbid obesity BMI 37.0 Weight loss and diet modification recommended Mood continue Continue Lamictal, klonopin Hypertension Continue diltiazem, hydralazine HLD Continue statin dvt ppx - heparin Attending Dr. Jones code status - full code requires ongoing inpatient stay for management of respiratory failure with close monitoring of respiratory status due to increased work of breathing/rapid response this am Quality Stroke Does the patient have a stroke diagnosis?: No VTE Prior VTE?: No VTE Risk Level:: Medical - moderate - high VTE Device Contraindication: N/A - Device Ordered VTE Drug Contraindication: N/A - Med Ordered
[2023-07-24 14:32] LABS: Troponin-I High Sensitivity 26.4 ng/L (<3.5-17.0)
[2023-07-24] MEDS: iohexoL 350 MG/ML 75 ML INFUS..BTL 65 ML IV (14:59)
[2023-07-24 16:42] LABS: Glucose, Whole Blood 367 mg/dL (60-115)
[2023-07-24 20:09] LABS: Glucose, Whole Blood 312 mg/dL (60-115)
[2023-07-24] MEDS: Insulin Glargine,Hum.rec.anlog 100 UNIT/ML 10 ML VIAL 45 UNIT SUBCUT (21:03)
[2023-07-24] MEDS: Atorvastatin Calcium 20 MG TABLET PO (21:04)
[2023-07-24] MEDS: cefTRIAXone sodium 2 GM in 0.9 % Sodium Chloride 50 ML IV (22:29)
[2023-07-24] MEDS: clonazePAM 1 MG TABLET PO (22:30)
[2023-07-25] VITALS (14 sets, daily range): BP systolic 133–190; BP diastolic 81–104; PULSE 94–116; RESP 16–119; TEMP 35.9–37; O2SAT 87–96
[2023-07-25 06:18] LABS: Anion Gap 15 (12-20); Blood Urea Nitrogen 31 mg/dL (9-16); Calcium 10.1 mg/dL (8.4-10.2); Carbon Dioxide 32 mmol/L (22-29); Chloride 96 mmol/L (96-108); Creatinine Clr Calc Pharmacy 88.9; Estimated Glomerular Filt Rate > 60; Glucose Random 191 mg/dL (60-115); Potassium 3.3 mmol/L (3.3-5.1); Sodium 140 mmol/L (135-145)
[2023-07-25] MEDS: Heparin Sodium,Porcine 5,000 UNIT/ML VIAL 5000 UNIT SUBCUT ×3 (07:02→21:13)
[2023-07-25] MEDS: Omeprazole 40 MG CAPSULE.DR PO (07:02)
[2023-07-25 07:23] LABS: Glucose, Whole Blood 198 mg/dL (60-115)
[2023-07-25] MEDS: Albuterol/Iprat 2.5/0.5MG 3 ML AMPUL.NEB INHALE ×4 (08:12→19:04)
[2023-07-25 08:40] LABS: Adenovirus PCR Not Detected (Not Detect.); Bordetella parapertussis PCR Not Detected (Not Detect.); Bordetella pertussis PCR Not Detected (Not Detect.); Chlamydia pneumoniae PCR Not Detected (Not Detect.); Coronavirus 229E PCR Not Detected (Not Detect.); Coronavirus HKU1 PCR Not Detected (Not Detect.); Coronavirus NL63 PCR Not Detected (Not Detect.); Coronavirus OC43 PCR Not Detected (Not Detect.); Human metapneumovirus PCR Not Detected (Not Detect.); Influenza A PCR Not Detected (Not Detect.); Influenza B PCR Not Detected (Not Detect.); Mycoplasma pneumoniae PCR Not Detected (Not Detect.); Parainfluenza 1 PCR Not Detected (Not Detect.); Parainfluenza 2 PCR Not Detected (Not Detect.); Parainfluenza 3 PCR Not Detected (Not Detect.); Parainfluenza 4 PCR Not Detected (Not Detect.); RSV PCR Not Detected (Not Detect.); Rhino/Enterovirus PCR Not Detected (Not Detect.)
[2023-07-25 08:45] LABS: SARS-CoV-2 PCR Not Detected (Not Detect.)
[2023-07-25] MEDS: methADONE HCl 20 MG/2 ML ORAL.CONC 50 MG PO (08:46)
[2023-07-25] MEDS: hydrALAZINE HCl 25 MG TABLET PO ×3 (08:47→17:11)
[2023-07-25] MEDS: Furosemide 20 MG TABLET PO ×2 (08:47→17:11)
[2023-07-25] MEDS: guaiFENesin DM 600/30 1 TAB TAB.ER.12H PO ×2 (08:47→21:13)
[2023-07-25] MEDS: azaTHIOprine 50 MG TABLET 100 MG PO (08:47)
[2023-07-25] MEDS: dilTIAZem HCL CD 180 MG CAP.ER.24H 360 MG PO (08:47)
[2023-07-25] MEDS: Folic Acid 1 MG TABLET PO (08:47)
[2023-07-25] MEDS: lamoTRIgine 25 MG TABLET 150 MG PO ×2 (08:48→21:13)
[2023-07-25] MEDS: acetaZOLAMIDE sodium 500 MG VIAL 375 MG IVPUSH ×2 (08:48→22:31)
[2023-07-25] MEDS: Insulin Lispro 100 UNIT/ML 3 ML VIAL 7.5 UNIT SUBCUT ×4 (08:49→21:15)
[2023-07-25] MEDS: Insulin Lispro 100 UNIT/ML 3 ML VIAL SUBCUT ×4 (08:49→21:15)
[2023-07-25] MEDS: methylPREDNISolone Sod Succ 125 MG/2 ML VIAL 40 MG IVPUSH (08:50)
--- NOTE | 2023-07-25 10:17 | MHC.CM.PN ---
Per ROUNDS discussion, Patient is not yet medically cleared for dc today (IV Diamox, IV Ceftriaxone, IV Solu Medrol); home/resume services is the goal and CM will continue to follow.
[2023-07-25 11:39] LABS: Glucose, Whole Blood 183 mg/dL (60-115)
--- NOTE | 2023-07-25 11:50 | HO.PM.IMPN ---
Subjective Subjective Date of Service: 07/25/23 Interval History: Examined this morning Follow-up for respiratory failure No overnight events documented History obtained with the assistance of a lace roller Patient states she was able to get more sleep overnight and feels that her breathing is a little more stable. Review of Systems Review of Systems: Yes all other systems are reviewed and are negative Constitutional Constitutional: Denies chills and Denies fever(s) Cardiovascular Cardiovascular: Reports dyspnea Respiratory Respiratory: Reports dyspnea Physical Exam Vital Signs: Vital Signs: Last Vital Signs Temp 96.7 F L 07/25/23 11:07 Pulse 113 H 07/25/23 11:29 Resp 22 H 07/25/23 11:29 BP 161/94 H 07/25/23 11:07 Pulse Ox 91 L 07/25/23 11:07 O2 Del Method Nasal Cannula 07/25/23 11:07 O2 Flow Rate 3 07/25/23 11:07 FiO2 93 07/24/23 23:21 Oxygen Flow Rate 30 07/25/23 04:00 BMI result Body Mass Index 36.8 Const: General: alert and awake Nutritional Appearance: obese Orientation/consciousness: patient oriented x3 Resp: Other: diminished breath sounds Effort & Inspection: no respiratory distress and no use of accessory muscles Cardio: Rate: tachycardic GI: Inspection: No distended Palpation (GI): Soft to palpation and nontender Neuro: General: patient oriented x3, moves all extremities and CN's II-XI intact bilaterally Extrem: General: Yes no pedal edema Objective Data Active Medications Acetazolamide (Acetazolamide Sodium 500 Mg Vial) 375 mg IVPUSH BID [facility] Last Admin: 07/25/23 08:48 Dose: 375 mg Documented By: NAYE Albuterol/Ipratropium (Albuterol/Iprat 2.5/0.5mg 3 Ml Ampul.Neb) 3 ml INHALE Q4H PRN PRN Reason: Wheezing Last Admin: 07/24/23 05:59 Dose: 3 ml Documented By: MARYSOL Albuterol/Ipratropium (Albuterol/Iprat 2.5/0.5mg 3 Ml Ampul.Neb) 3 ml INHALE RQ4H WHILE AWAKE [facility] Last Admin: 07/25/23 11:29 Dose: 3 ml Documented By: MARIELOS Atorvastatin Calcium (Atorvastatin Calcium 20 Mg Tablet) 20 mg PO BEDTIME [facility] Last Admin: 07/24/23 21:04 Dose: 20 mg Documented By: MAYDA Azathioprine (Azathioprine 50 Mg Tablet) 100 mg PO DAILY [facility] Last Admin: 07/25/23 08:47 Dose: 100 mg Documented By: NAYE Clonazepam (Clonazepam 1 Mg Tablet) 1 mg PO BID PRN PRN Reason: anxiety/restlessness Last Admin: 07/24/23 22:30 Dose: 1 mg Documented By: MAYDA Diltiazem HCl (Diltiazem Hcl Cd 180 Mg Cap.Er.24h) 360 mg PO DAILY [facility]; Protocol Last Admin: 07/25/23 08:47 Dose: 360 mg Documented By: NAYE Folic Acid (Folic Acid 1 Mg Tablet) 1 mg PO DAILY [facility] Last Admin: 07/25/23 08:47 Dose: 1 mg Documented By: NAYE Furosemide (Furosemide 20 Mg Tablet) 20 mg PO BID@0900,1800 [facility]; Protocol Last Admin: 07/25/23 08:47 Dose: 20 mg Documented By: NAYE Glucose (Glucose Gel 15 Gm Gel..Gram.) 15 gm PO Q15M PRN; Protocol PRN Reason: per Hypoglycemia Standing Ord. Guaifenesin/Dextromethorphan (Guaifenesin Dm 600/30 1 Tab Tab.Er.12h) 1 tab PO BID [facility] Last Admin: 07/25/23 08:47 Dose: 1 tab Documented By: NAYE Heparin Sodium (Porcine) (Heparin Sodium,Porcine 5,000 Unit/Ml Vial) 5,000 unit SUBCUT Q8H [facility] Last Admin: 07/25/23 07:02 Dose: 5,000 unit Documented By: MAYDA Hydralazine HCl (Hydralazine Hcl 25 Mg Tablet) 25 mg PO TIDWM [facility]; Protocol Last Admin: 07/25/23 08:47 Dose: 25 mg Documented By: NAYE Dextrose (D10) 250 mls @ 750 mls/hr IV Q15M PRN; Protocol PRN Reason: per Hypoglycemia Standing Ord. Insulin Glargine (Insulin Glargine,Hum.Rec.Anlog 100 Unit/Ml 10 Ml Vial) 45 unit SUBCUT BEDTIME [facility] Last Admin: 07/24/23 21:03 Dose: 45 unit Documented By: MAYDA Insulin Human Lispro (Insulin Lispro 100 Unit/Ml 3 Ml Vial) 0 unit SUBCUT QIDAS [facility]; Protocol Last Admin: 07/25/23 08:49 Dose: 2 unit Documented By: NAYE Insulin Human Lispro (Insulin Lispro 100 Unit/Ml 3 Ml Vial) 7.5 unit SUBCUT QIDAS [facility] Last Admin: 07/25/23 08:49 Dose: 7.5 unit Documented By: NAYE Lamotrigine (Lamotrigine 25 Mg Tablet) 150 mg PO BID [facility] Last Admin: 07/25/23 08:48 Dose: 150 mg Documented By: NAYE Methadone HCl (Methadone Hcl 20 Mg/2 Ml Oral.Conc) 50 mg PO DAILY [facility] Last Admin: 07/25/23 08:46 Dose: 50 mg Documented By: NAYE Methylprednisolone Sodium Succinate (Methylprednisolone Sod Succ 125 Mg/2 Ml Vial) 40 mg IVPUSH DAILY [facility] Last Admin: 07/25/23 08:50 Dose: 40 mg Documented By: NAYE Naloxone HCl (Naloxone Hcl 0.4 Mg/Ml Vial) 0.2 mg IVPUSH Q2M PRN PRN Reason: Excessive sedation or RR < 8 Omeprazole (Omeprazole 40 Mg Capsule.Dr) 40 mg PO DAILY@0630 [facility] Last Admin: 07/25/23 07:02 Dose: 40 mg Documented By: MAYDA Labs 07/24/23 06:17 07/25/23 05:39 Labs: Laboratory Results - last 24 hr 07/24/23 07/24/23 07/24/23 13:22 13:35 16:39 Anion Gap Estim Creat Clear Calc Estimated GFR POC Glucose 367 H* Random Glucose Calcium Troponin I High Sens 26.4 H Respiratory Panel Holder See Note Adenovirus (Rapid PCR) Not Detected B.pert (TEM-PCR) Not Detected B.parapertussis DNA PCR Not Detected C. pneumoniae DNA (PCR) Not Detected Coronavirus OC43 (PCR) Not Detected Coronavirus HKU1 (PCR) Not Detected Coronavirus 229E (PCR) Not Detected Coronavirus NL63 (PCR) Not Detected Human Metapneumovir PCR Not Detected Influenza A (RT-PCR) Not Detected Influenza B (RT-PCR) Not Detected M. pneumoniae (PCR) Not Detected Parainfluenza 1 (PCR) Not Detected Parainfluenza 2 (PCR) Not Detected Parainfluenza 3 (PCR) Not Detected Parainfluenza 4 (PCR) Not Detected RSV (PCR) Not Detected Entero/Rhino (PCR) Not Detected SARS-CoV-2 RNA (RT-PCR) Not Detected 07/24/23 07/25/23 07/25/23 20:05 05:39 07:19 Anion Gap 15 Estim Creat Clear Calc 88.9 Estimated GFR > 60 POC Glucose 312 H 198 H Random Glucose 191 H Calcium 10.1 Troponin I High Sens Respiratory Panel Holder Adenovirus (Rapid PCR) B.pert (TEM-PCR) B.parapertussis DNA PCR C. pneumoniae DNA (PCR) Coronavirus OC43 (PCR) Coronavirus HKU1 (PCR) Coronavirus 229E (PCR) Coronavirus NL63 (PCR) Human Metapneumovir PCR Influenza A (RT-PCR) Influenza B (RT-PCR) M. pneumoniae (PCR) Parainfluenza 1 (PCR) Parainfluenza 2 (PCR) Parainfluenza 3 (PCR) Parainfluenza 4 (PCR) RSV (PCR) Entero/Rhino (PCR) SARS-CoV-2 RNA (RT-PCR) 07/25/23 11:35 Anion Gap Estim Creat Clear Calc Estimated GFR POC Glucose 183 H Random Glucose Calcium Troponin I High Sens Respiratory Panel Holder Adenovirus (Rapid PCR) B.pert (TEM-PCR) B.parapertussis DNA PCR C. pneumoniae DNA (PCR) Coronavirus OC43 (PCR) Coronavirus HKU1 (PCR) Coronavirus 229E (PCR) Coronavirus NL63 (PCR) Human Metapneumovir PCR Influenza A (RT-PCR) Influenza B (RT-PCR) M. pneumoniae (PCR) Parainfluenza 1 (PCR) Parainfluenza 2 (PCR) Parainfluenza 3 (PCR) Parainfluenza 4 (PCR) RSV (PCR) Entero/Rhino (PCR) SARS-CoV-2 RNA (RT-PCR) Assessment and Plan (1) COPD (chronic obstructive pulmonary disease): Status: Acute (2) Obesity hypoventilation syndrome: Status: Acute (3) CHITO (obstructive sleep apnea): Status: Acute (4) Pneumonia: Status: Acute Plan 53 year old female with history of chronic hypoxic and hypercarbic respiratory failure on 2 L nasal cannula and BiPAP at night, CHITO/OHS/asthma/COPD overlap, chronic methadone use, diabetes, recurrent admissions for respiratory failure who was brought in by ambulance for headache and nausea found to be hypoxic, placed on BiPAP but failed to improve and was ultimately intubated in the emergency department on July 15 and transferred to the ICU for further care. Her imaging showed evidence of bronchopneumonia and she was treated with vancomycin/cefepime as well as steroids and breathing treatments for COPD exacerbation. In addition she was started on IV lasix for component of CHF. She was Extubated July 17 and downgraded to the medical floor July 18. Metabolic alkalosis VBG 7.54/51/92/44, some over oxygenation noted Social Contact Worker consultation> add diamox IV BID Acute on chronic hypercarbic and hypoxic respiratory failure Multifactorial due to COPD exacerbation, bronchopneumonia, obesity hypoventilation,and exacerbation of HFpEF Continue BiPAP q.h.s. Continue supplemental oxygen, 2 L at baseline normal ABG's, repeat CXR showing improvement completed course of abx for pneumonia persistent sob, tachycardia CTA negative for PE trops flat EKG similar to previous, no chest pain steroids weaned, transition to po prednisone in am Bronchopneumonia initially treated with IV cefepime and vancomycin. Sputum culture growing Haemophilus influenzae, changed to IV ceftriaxone; MRSA nares negative, vanco stopped. completed course of antibiotics. blood cultures negative to date afebrile, leukocytosis due to steroids Acute on chronic HFpEF s/p IV lasix transitioned to oral follow Is&Os acute exacerbation of COPD change IV to po prednisone in am Continue scheduled and p.r.n. breathing treatments continue supplemental o2 2L NC Diabetes with hyperglycemia due to steroids Continue home dose of Lantus, ss scheduled meal time insulin added OUD Continue methadone Morbid obesity BMI 37.0 Weight loss and diet modification recommended Mood continue Continue Lamictal, klonopin Hypertension Continue diltiazem, hydralazine HLD Continue statin dvt ppx - heparin Attending Dr. Jones code status - full code requires ongoing inpatient stay for management of respiratory failure with close monitoring of respiratory status due to increased work of breathing Quality Stroke Does the patient have a stroke diagnosis?: No VTE Prior VTE?: No VTE Risk Level:: Medical - moderate - high VTE Device Contraindication: N/A - Device Ordered VTE Drug Contraindication: N/A - Med Ordered
--- NOTE | 2023-07-25 14:30 | P.PNPL_ITS ---
Subjective Subjective Date of Service: 07/25/23 Interval history: Respiratory status is slowly improving. Objective Data Labs 07/24/23 06:17 07/25/23 05:39 Labs: Laboratory Results - last 24 hr 07/24/23 07/24/23 07/24/23 13:22 13:35 16:39 Sodium Potassium Chloride Carbon Dioxide Anion Gap BUN Creatinine Estim Creat Clear Calc Estimated GFR POC Glucose 367 H* Random Glucose Calcium Troponin I High Sens 26.4 H Respiratory Panel Holder See Note Adenovirus (Rapid PCR) Not Detected B.pert (TEM-PCR) Not Detected B.parapertussis DNA PCR Not Detected C. pneumoniae DNA (PCR) Not Detected Coronavirus OC43 (PCR) Not Detected Coronavirus HKU1 (PCR) Not Detected Coronavirus 229E (PCR) Not Detected Coronavirus NL63 (PCR) Not Detected Human Metapneumovir PCR Not Detected Influenza A (RT-PCR) Not Detected Influenza B (RT-PCR) Not Detected M. pneumoniae (PCR) Not Detected Parainfluenza 1 (PCR) Not Detected Parainfluenza 2 (PCR) Not Detected Parainfluenza 3 (PCR) Not Detected Parainfluenza 4 (PCR) Not Detected RSV (PCR) Not Detected Entero/Rhino (PCR) Not Detected SARS-CoV-2 RNA (RT-PCR) Not Detected 07/24/23 07/25/23 07/25/23 20:05 05:39 07:19 Sodium 140 Potassium 3.3 Chloride 96 Carbon Dioxide 32 H Anion Gap 15 BUN 31 H Creatinine 0.71 Estim Creat Clear Calc 88.9 Estimated GFR > 60 POC Glucose 312 H 198 H Random Glucose 191 H Calcium 10.1 Troponin I High Sens Respiratory Panel Holder Adenovirus (Rapid PCR) B.pert (TEM-PCR) B.parapertussis DNA PCR C. pneumoniae DNA (PCR) Coronavirus OC43 (PCR) Coronavirus HKU1 (PCR) Coronavirus 229E (PCR) Coronavirus NL63 (PCR) Human Metapneumovir PCR Influenza A (RT-PCR) Influenza B (RT-PCR) M. pneumoniae (PCR) Parainfluenza 1 (PCR) Parainfluenza 2 (PCR) Parainfluenza 3 (PCR) Parainfluenza 4 (PCR) RSV (PCR) Entero/Rhino (PCR) SARS-CoV-2 RNA (RT-PCR) 07/25/23 11:35 Sodium Potassium Chloride Carbon Dioxide Anion Gap BUN Creatinine Estim Creat Clear Calc Estimated GFR POC Glucose 183 H Random Glucose Calcium Troponin I High Sens Respiratory Panel Holder Adenovirus (Rapid PCR) B.pert (TEM-PCR) B.parapertussis DNA PCR C. pneumoniae DNA (PCR) Coronavirus OC43 (PCR) Coronavirus HKU1 (PCR) Coronavirus 229E (PCR) Coronavirus NL63 (PCR) Human Metapneumovir PCR Influenza A (RT-PCR) Influenza B (RT-PCR) M. pneumoniae (PCR) Parainfluenza 1 (PCR) Parainfluenza 2 (PCR) Parainfluenza 3 (PCR) Parainfluenza 4 (PCR) RSV (PCR) Entero/Rhino (PCR) SARS-CoV-2 RNA (RT-PCR) Microbiology Microbiology Results: Microbiology 07/16/23 11:52 Blood - Venous Blood Culture - Final No growth after 5 days. 07/16/23 11:52 Blood - Venous Blood Culture - Final No growth after 5 days. 07/16/23 21:39 Sputum - Suctioned Gram Stain - Final 07/16/23 21:39 Sputum - Suctioned Sputum Culture - Final Haemophilus influenzae Physical Exam 2 Vital Signs: Vital Signs: Last Vital Signs Temp 96.7 F L 07/25/23 11:07 Pulse 113 H 07/25/23 11:29 Resp 22 H 07/25/23 11:29 BP 161/94 H 07/25/23 11:07 Pulse Ox 91 L 07/25/23 11:07 O2 Del Method Nasal Cannula 07/25/23 11:07 O2 Flow Rate 3 07/25/23 11:07 FiO2 93 07/24/23 23:21 Oxygen Flow Rate 30 07/25/23 04:00 BMI result Body Mass Index 36.8 Const: General: no acute distress, alert and awake Eyes: Sclerae: sclerae normal EOM: EOMs intact bilaterally Neck: Neck: Yes no lymphadenopathy, Yes trachea midline and Yes supple Resp: Effort & Inspection: normal respiratory effort and no respiratory distress Auscultation: clear to auscultation bilaterally Cardio: Rate: tachycardic Rhythm: regular rhythm Heart sounds: no gallops, no murmurs and no rubs GI: Palpation (GI): Soft to palpation and Other GI palpation findings present ( Nontender) Auscultation: normal bowel sounds Extrem: General: No clubbing, No cyanosis and Yes edema (Trace bilateral) Procedures Date of Service Date of Service: 07/25/23 Assessment and Plan Assessment and plan (1) CHITO (obstructive sleep apnea): Status: Acute (2) Obesity hypoventilation syndrome: Status: Acute (3) COPD (chronic obstructive pulmonary disease): Status: Acute (4) Acute on chronic respiratory failure with hypoxia and hypercapnia: Status: Acute Plan Impression: 53-year-old lady admitted with exacerbation of underlying asthma/COPD/obesity hypoventilation syndrome resultant acute on chronic hypoxic and hypercapnic respiratory failure requiring initially ventilatory support, now still with significant respiratory difficulties requiring on and off BiPAP support. No evidence of acute CO2 retention. Improving slowly. Recommendations: Continue with current regimen including acetazolamide and steroid taper. Time Spent With Patient Time: Total time managing care of this patient today ____ minutes. Progress Note: Quality Stroke Does the patient have a stroke diagnosis?: No
[2023-07-25 15:22] LABS: Glucose, Whole Blood 281 mg/dL (60-115)
[2023-07-25 20:28] LABS: Glucose, Whole Blood 277 mg/dL (60-115)
[2023-07-25] MEDS: clonazePAM 1 MG TABLET PO (21:13)
[2023-07-25] MEDS: Atorvastatin Calcium 20 MG TABLET PO (21:13)
[2023-07-25] MEDS: Insulin Glargine,Hum.rec.anlog 100 UNIT/ML 10 ML VIAL 45 UNIT SUBCUT (21:14)
[2023-07-26] VITALS (10 sets, daily range): BP systolic 136–165; BP diastolic 82–101; PULSE 80–107; RESP 17–22; TEMP 36.1–36.8; O2SAT 92–95
[2023-07-26] MEDS: Labetalol HCL 100 MG/20 ML VIAL 10 MG IVPUSH (01:07)
[2023-07-26] MEDS: Omeprazole 40 MG CAPSULE.DR PO (05:56)
[2023-07-26] MEDS: Heparin Sodium,Porcine 5,000 UNIT/ML VIAL 5000 UNIT SUBCUT (05:56)
[2023-07-26 07:21] LABS: Glucose, Whole Blood 204 mg/dL (60-115)
[2023-07-26] MEDS: Albuterol/Iprat 2.5/0.5MG 3 ML AMPUL.NEB INHALE ×2 (07:39→11:09)
[2023-07-26] MEDS: Insulin Lispro 100 UNIT/ML 3 ML VIAL SUBCUT ×2 (08:46→11:47)
[2023-07-26] MEDS: Insulin Lispro 100 UNIT/ML 3 ML VIAL 7.5 UNIT SUBCUT ×2 (08:47→11:47)
[2023-07-26] MEDS: methADONE HCl 20 MG/2 ML ORAL.CONC 50 MG PO (08:48)
[2023-07-26] MEDS: hydrALAZINE HCl 25 MG TABLET PO ×2 (08:49→11:46)
[2023-07-26] MEDS: Furosemide 20 MG TABLET PO (08:49)
[2023-07-26] MEDS: predniSONE 20 MG TABLET 40 MG PO (08:49)
[2023-07-26] MEDS: lamoTRIgine 25 MG TABLET 150 MG PO (08:50)
[2023-07-26] MEDS: Folic Acid 1 MG TABLET PO (08:50)
[2023-07-26] MEDS: guaiFENesin DM 600/30 1 TAB TAB.ER.12H PO (08:50)
[2023-07-26] MEDS: dilTIAZem HCL CD 180 MG CAP.ER.24H 360 MG PO (08:50)
[2023-07-26] MEDS: azaTHIOprine 50 MG TABLET 100 MG PO (08:51)
[2023-07-26] MEDS: acetaZOLAMIDE sodium 500 MG VIAL 375 MG IVPUSH (09:00)
--- NOTE | 2023-07-26 10:24 | PM.DS ---
DS: Providers Provider Date of Service: 07/26/23 Date of admission: 07/16/23 19:14 Date of discharge: 07/26/23 Primary care physician: Kelli Benavides MD Admitting clinician: Nelly Rubalcava Attending physician on admission: Yadira Childress Consults: 07/23/23 08:11 Consult to Pulmonology Routine Consulting Provider: [facility] Pul[facility]ology Services Reason for consultation: tachypnea, sob Attending physician on discharge: [facility] Discharging clinician: Liana Clark DS: Diagnosis Discharge Diagnosis (1) CHITO (obstructive sleep apnea): Status: Acute (2) Obesity hypoventilation syndrome: Status: Acute (3) COPD (chronic obstructive pulmonary disease): Status: Acute (4) Acute on chronic respiratory failure with hypoxia and hypercapnia: Status: Acute DS: Summary Hospital Course Hospital Course: HPI on admission by Nelly Rubalcava NP ICU: Ms. Radu Larios is a 53 yo female well known to [facility] with with history of chronic hypoxic and hypercarbic respiratory failure on 2L NC and BiPAP QHS, CHITO/OHS, aspiration, asthma/COPD overlap syndrome, former smoker,? chronic methadone use, obesity, DM, CHITO, HLD.? She was recently admitted 07/08-? for acute and chronic respiratory failure with hypercapnia. The patient was brought in by ambulance with complaint of headache and nausea. She was found to be hypoxic to 60?s%.? She was initially placed on BiPAP but failed to improve and was ultimately intubated.? On arrival to the emergency department the patient?s O2 sat was 75% on 2LNC. She was lethargic, complaining of a productive cough, increased work of breathing and wheezing. She was placed on BiPAP throughout the day but due to increased lethargy and ABGs showing worsening hypoxic hypercapnic respiratory failure requiring emergent intubation in the emergency department. Laboratory data significant for WBC 13.8,? CO2 37, BUN 22, glucose 354, lactic acid 0.6, LDH 462, CRP 10.74, procalcitonin 0.08.? VBG showed pH of 7 point 5 2, pCO2 48, PO2 166, HC03 39.? UA was negative for UTI. IMAGING:? CXR: worsening congestive changes. Chest CT:? bibasilar bronchopneumonia greatest in the lower lobes. Abdomen/pelvis CT: no acute findings. Head CT:? no acute findings. ED course: The patient received? magnesium 2 g, methylprednisolone 125 mg,? albuterol x2, insulin human lispro 15 units, vancomycin 2 g, cefepime 2 g.? Ketamine was used for RSI.? Propofol and fentanyl drips started for sedation. The patient was admitted to ICU for acute hypercapnic? hypoxic respiratory failure and pneumonia requiring mechanical ventilation. Hospital course: Pt initially admitted to ICU for management of acute hypercapnic hypoxemic respiratory failure secondary to COPD exacerbation, obesity hypoventilation, exacerbation of heart failure with preserved ejection fraction, and bronchopneumonia initially treated with BiPAP but ultimately requiring mechanical ventilation and successfully extubated on 07/17. She was treated empirically with broad-spectrum antibiotics. MRSA nasal screen ultimately negative and vancomycin was stopped. Sputum culture grew H flu and cefepime was changed to IV ceftriaxone. She was continued on p.o. Lasix with the addition of 375 mg IV acetazolamide for volume overload with significant clinical improvement and weaning of supplemental O2 back to baseline 2 L via nasal cannula. She was continued on BiPAP at bedtime which is her baseline. She was treated with IV methylprednisolone and transitioned to prednisone. She did experience steroid induced hyperglycemia and was treated with 7.5 units lispro in addition to sliding scale and continuation of her Lantus. She was followed by pulmonology recommending she continue on p.o. acetazolamide and prednisone taper. She will be discharged with sliding scale lispro in addition to the 4 units lispro she is currently taking with meals and at bedtime and should continue her Lantus for her diabetes. She completed course of antibiotics, no outpatient antibiotics prescribed. Follow-up with pulmonology and PCP. Course by problem: Metabolic alkalosis VBG 7.54/51/92/44, some over oxygenation noted [employer] consultation> add diamox IV BID Acute on chronic hypercarbic and hypoxic respiratory failure - resolved Multifactorial due to COPD exacerbation, bronchopneumonia, obesity hypoventilation,and exacerbation of HFpEF Continue BiPAP q.h.s. Continue supplemental oxygen, 2 L at baseline normal ABG's, repeat CXR showing improvement completed course of abx for pneumonia persistent sob, tachycardia CTA negative for PE trops flat EKG similar to previous, no chest pain steroids weaned, continue prednisone taper on discharge with acetazolamide 250mg BID Bronchopneumonia initially treated with IV cefepime and vancomycin. Sputum culture growing Haemophilus influenzae, changed to IV ceftriaxone; MRSA nares negative, vanco stopped. completed course of antibiotics. blood cultures negative to date afebrile, leukocytosis due to steroids Acute on chronic HFpEF s/p IV lasix transitioned to oral. Acetazolamide added as above follow Is&Os acute exacerbation of COPD Initially treated with IV methylprednisolone, continue prednisone taper on discharge Continue scheduled and p.r.n. breathing treatments continue supplemental o2 2L NC Follow-up with pulmonology Diabetes with hyperglycemia due to steroids Continue home dose of Lantus Continue 4 units Admelog as previously prescribed. Add sliding scale lispro to cover for steroid induced hyperglycemia OUD Continue methadone Morbid obesity BMI 37.0 Weight loss and diet modification recommended Mood continue Continue Lamictal, klonopin Hypertension Continue diltiazem, hydralazine HLD Continue statin Status at Discharge Overall status at discharge: patient is progressing back to baseline Time Attestation Discharge Coordination Time (in mins): 45 Quality: Safe Use of Opioids Does Pt have an Active Cancer Diagnosis on the Problem List?: No Quality: Stroke Does the patient have a stroke diagnosis?: No Physical Exam Vital Signs: Vital Signs: Last Vital Signs Temp 98.3 F 07/26/23 07:58 Pulse 98 07/26/23 08:50 Resp 22 H 07/26/23 07:58 BP 144/88 H 07/26/23 08:50 Pulse Ox 92 07/26/23 07:58 O2 Del Method Nasal Cannula 07/26/23 07:58 O2 Flow Rate 2 07/26/23 07:58 FiO2 93 07/24/23 23:21 Oxygen Flow Rate 30 07/26/23 04:00 BMI result Body Mass Index 36.8 Constitutional - Awake and Alert, No apparent distress Eyes - PERRLA, EOMI Cardiovascular - S1S2, RRR, No edema Respiratory - Normal lung expansion, Normal respiratory effort, No respiratory distress on 2L supplemental o2, CTA bilaterally Extremities - no calf tenderness bilaterally, no swelling Skin - Warm/Dry Neurological - Alert & oriented x3 Psychological - Appropriate affect DS: Data Data Completed and Pending Completed studies during hospitalization [Text1]: Procedures Assistance with Respiratory Ventilation, 24-96 Consecutive Hours, Continuous Positive Airway Pressure (02/21/23) Assistance with Respiratory Ventilation, Less than 24 Consecutive Hours, Continuous Positive Airway Pressure (07/09/23) Insertion of Endotracheal Airway into Trachea, Via Natural or Artificial Opening (12/21/22) Insertion of Infusion Device into Right Atrium, Percutaneous Approach (12/21/21) Insertion of Infusion Device into Right Brachial Vein, Percutaneous Approach (07/28/22) Insertion of Infusion Device into Superior Vena Cava, Percutaneous Approach (12/21/22) Insertion of Infusion Device into Upper Vein, Percutaneous Approach (02/21/23) Introduction of Vasopressor into Peripheral Vein, Percutaneous Approach (12/21/21) Respiratory Ventilation, 24-96 Consecutive Hours (12/21/22) Ultrasonography of Superior Vena Cava, Guidance (12/21/22) Labs on day of discharge: Laboratory Results - last 24 hr 07/25/23 07/25/23 07/25/23 11:35 15:19 20:24 POC Glucose 183 H 281 H 277 H 07/26/23 07:16 POC Glucose 204 H Discharge Plan Discharge Anticipated Discharge Date/Time: 07/26/23 10:29 Patient Disposition: Home Health Service Discharge Diagnosis: Acute on chronic respiratory failure, bronchopneumonia, acute on chronic chf Referrals: [facility] [Other] - 1 Day (nursing will resume tomorrow, including methadone delivery ) Allan Brito MD [Physician] - 1 Week Kelli Benavides MD [Primary Care Provider] - 1 Week Discharge Medications: New acetazolamide 250 mg Tablet 250 mg PO BID Qty: 180 0RF prednisone 10 mg tablet 10 mg PO DIRECTED Qty: 32 0RF Rx Instructions: see taper instructions insulin lispro [Admelog U-100 Insulin lispro] 100 unit/mL Solution See Protocol subcut QIDACHS Qty: 10 0RF Protocol: Insulin Correction Scale Less than or equal to 110 ---- Give (units): 0 111 to 150 Give (units): 0 151 to 200 Give (units): 2 201 to 250 Give (units): 4 251 to 300 Give (units): 6 301 to 350 Give (units): 8 Greater than 350 Give (units): 10 Call MD if Blood Glucose > : 400 Rx Instructions: Use in addition to 4 units lispro as prescribed while using steroid taper to manage steroid induced hyperglycemia Continued gabapentin 300 mg capsule 300 mg PO BID Qty: 60 11RF albuterol sulfate [ProAir HFA] 90 mcg/actuation HFA aerosol inhaler 2 puff inhalation Q4H PRN (Reason: Shortness Of Breath Or Wheezing) Qty: 1 0RF omeprazole 40 mg capsule,delayed release(DR/EC) 40 mg PO DAILY@0630 30 Days Qty: 30 6RF furosemide 20 mg tablet 40 mg PO DAILY 90 Days Qty: 180 0RF ipratropium-albuterol 0.5 mg-3 mg(2.5 mg base)/3 mL solution for nebulization 3 ml PO Q4H PRN (Reason: for wheezing) Qty: 540 6RF diltiazem HCl [Tiadylt ER] 360 mg capsule,extended release 24 hr 360 mg PO DAILY rosuvastatin 5 mg tablet 5 mg PO BEDTIME roflumilast [Daliresp] 500 mcg tablet 500 mcg PO DAILY metformin 500 mg tablet extended release 24 hr 500 mg PO DAILY hydralazine 25 mg tablet 25 mg PO TIDWM insulin lispro 100 unit/mL solution 4 unit subcut TIDAC PRN (Reason: Hyperglycemia) Rx Instructions: per sliding scale methadone 10 mg/mL Concentrate 50 mg PO DAILY Patient Comments: [facility] PIC[facility] UP AND ADMINISTERS lamotrigine 150 mg tablet 150 mg PO BID calcitonin (salmon) 200 unit/actuation spray,non-aerosol 1 spray intranasal DAILY Rx Instructions: one nostril every day, alternate sides. insulin glargine [Lantus U-100 Insulin] 100 unit/mL solution 45 unit subcut BEDTIME docusate sodium 100 mg capsule 100 mg PO BID PRN (Reason: constipation) clonazepam 1 mg tablet 1 mg PO BID PRN (Reason: Anxiety) polyethylene glycol 3350 [Miralax] 17 gram/dose powder 17 g PO DAILY ammonium lactate 12 % lotion 1 appl topical DAILY zolpidem 5 mg tablet 5 mg PO BEDTIME PRN (Reason: Sleep) Rx Instructions: use with 100% BIPAP compliance only diclofenac sodium 1 % gel 4 g TOPICAL QID PRN (Reason: Pain) cholecalciferol (vitamin D3) 1,250 mcg (50,000 unit) capsule 1,250 mcg PO MOTH lidocaine 5 % adhesive patch,medicated 1 patch topical QAM PRN (Reason: Pain) azathioprine 50 mg tablet 100 mg PO DAILY montelukast 10 mg tablet 10 mg PO BEDTIME loratadine [Claritin] 10 mg tablet 10 mg PO DAILY (DME) compress.stocking,knee,reg,med Misc See Rx Instructions .Route Qty: 2 0RF Rx Instructions: 15-20 cm arformoterol [Brovana] 15 mcg/2 mL solution for nebulization 2 ml inhalation Q12H 30 Days Qty: 120 11RF budesonide 0.5 mg/2 mL suspension for nebulization 0.5 mg inhalation BID Qty: 120 11RF tiotropium bromide [Spiriva with HandiHaler] 18 mcg capsule, w/inhalation device 1 cap inhalation DAILY Qty: 30 11RF (DME) nebulizers Misc See Rx Instructions .ROUTE Rx Instructions: As directed folic acid 1 mg tablet 1 mg PO DAILY 30 Days Qty: 30 6RF Held prednisone 10 mg tablet See Taper PO DIRECTED Hold Instructions: Resume on 08/07/23. Resume prescription upon completion of steroid taper Taper: Prednisone 30 mg daily for 2 Days and 0 Hour 20 mg daily for 2 Days and 0 Hour 10 mg daily for 2 Days and 0 Hour Rx Instructions: see taper instructions Discharge Orders: Discharge Order (Routine); Ordered 07/26/23 Ordered By: Liana Clark Diet: Advance to usual diet Activity on Discharge: As tolerated Stand Alone Forms: Patient Portal Discharge page Print Language: Latvian Care Plan Goals: Prevent recurrent exacerbations of copd/hypoxia.chf Health Concerns: Acute respiratory distress on chronic hypoxemic hypercarbic respiratory failure Asthma/COPD overlap syndrome Right leg edema Hyperkalemia Plan of Treatment: Follow up with pcp Continue medications as prescribed Add acetazolamide 250mg twice daily Prednisone taper. Then resume 10mg prednisone daily. Follow up with pulmonology Use additional insulin lispo on sliding scale with currently prescribed insulin lispro while on steroid taper to manage steroid induced hyperglycemia Last dose methadone 07/25 at 848am Assessment: See above. See discharge summary Discharge Date/Time: 07/26/23 14:37
[2023-07-26 11:28] LABS: Glucose, Whole Blood 184 mg/dL (60-115)
[2023-07-26] MEDS: acetaZOLAMIDE 250 MG TABLET PO (11:47)
--- NOTE | 2023-07-26 12:19 | P.PNPL_ITS ---
Subjective Subjective Date of Service: 07/26/23 Interval history: Respiratory status improved to baseline. Objective Data Labs 07/24/23 06:17 07/25/23 05:39 Labs: Laboratory Results - last 24 hr 07/25/23 07/25/23 07/26/23 15:19 20:24 07:16 POC Glucose 281 H 277 H 204 H 07/26/23 11:18 POC Glucose 184 H Microbiology Microbiology Results: Microbiology 07/16/23 11:52 Blood - Venous Blood Culture - Final No growth after 5 days. 07/16/23 11:52 Blood - Venous Blood Culture - Final No growth after 5 days. 07/16/23 21:39 Sputum - Suctioned Gram Stain - Final 07/16/23 21:39 Sputum - Suctioned Sputum Culture - Final Haemophilus influenzae Physical Exam 2 Vital Signs: Vital Signs: Last Vital Signs Temp 98.3 F 07/26/23 07:58 Pulse 107 H 07/26/23 11:10 Resp 20 07/26/23 11:10 BP 144/88 H 07/26/23 11:46 Pulse Ox 92 07/26/23 07:58 O2 Del Method Nasal Cannula 07/26/23 07:58 O2 Flow Rate 2 07/26/23 07:58 FiO2 93 07/24/23 23:21 Oxygen Flow Rate 30 07/26/23 04:00 BMI result Body Mass Index 36.8 Const: General: no acute distress, alert and awake Eyes: Sclerae: sclerae normal EOM: EOMs intact bilaterally Neck: Neck: Yes no lymphadenopathy, Yes trachea midline and Yes supple Resp: Effort & Inspection: normal respiratory effort and no respiratory distress Auscultation: clear to auscultation bilaterally Cardio: Rate: tachycardic Rhythm: regular rhythm Heart sounds: no gallops, no murmurs and no rubs GI: Palpation (GI): Soft to palpation and Other GI palpation findings present ( Nontender) Auscultation: normal bowel sounds Extrem: General: No clubbing, No cyanosis and Yes edema (Trace bilateral) Procedures Date of Service Date of Service: 07/26/23 Assessment and Plan Assessment and plan (1) CHITO (obstructive sleep apnea): Status: Acute (2) Obesity hypoventilation syndrome: Status: Acute (3) COPD (chronic obstructive pulmonary disease): Status: Acute Plan Impression: 53-year-old lady admitted with exacerbation of underlying asthma/COPD/obesity hypoventilation syndrome resultant acute on chronic hypoxic and hypercapnic respiratory failure requiring initially ventilatory support, now still with significant respiratory difficulties requiring on and off BiPAP support. No evidence of acute CO2 retention. Now essentially at baseline. Recommendations: Convert acetazolamide to p.o. and taper glucocorticoids. Resume outpatient regimen. Time Spent With Patient Time: Total time managing care of this patient today ____ minutes. Progress Note: Quality Stroke Does the patient have a stroke diagnosis?: No
--- NOTE | 2023-07-26 12:30 | MHC.CM.PN ---
CM MET WITH PT WITH A CROP PULLER TO DISCUSS DC. PT REPORTS [facility] DELIVERS HER METHADONE, BUT SHE IS WORRIED THEY WILL NOT HAVE ENOUGH NOTICE. GIOVANNY CALLED PTS HOME NURSE [phone] WHO REPORTED LONG THE CLINIC ([facility]) HAD THE DCS AND LAST DOSE LETTER, SHE SHOULD BE ABLE TO PIN PUSHER THE MEDS IN TIME. GIOVANNY CALLED [facility] AND SPOKE TO THE NURSE, SHE PROVIDED A FAX NUMBER OF [phone] DCS AND LAST DOSE LETTER FAXED, GIOVANNY CALLED [facility] NURSE BACK AND CONFIRMED IT WAS RECEIVED PER [facility] RN, PTS HOME NURSE HAD ALREADY CONTACTED THEM AND WOULD PIN PUSHER PTS MEDS TODAY FOR DELIVERY TO PT TOMORROW MORNING PT WILL DC HOME TODAY WITH RESUMPTION OF [facility] METH[facility]ONE CLINIC, [facility], AND [facility] BLS TRANSPORT ARRANGED VIA [facility] FOR 1330 HOURS TODAY
--- NOTE | 2023-08-06 14:58 | PC.NURSE ---
late entry for on jul 16 2023 propofol infusion started at 1829 at 40mcg/kg/min as requested by provider. documentation in MAR shows the infusion was started 50 mcg/kg/hr was in error. unable to edit the MAR. titration at 1859 should be reflecting dose rate of 40mcg/kg/hr. documentation in MAR shows 66.4 mcg/kg/hr noted to be an error, unable to update in the MAR.
== END 2023-07-26 14:37 | disposition home health service (06) | DRG 139 ==
LOC: HO.ED 16:28 → HO.EDOVER 19:27 → HO.ICU 19:28 → HO.IMC 07-19 11:09
PROVIDERS: Emergency Medicine; Internal Medicine Critical Care Medicine; Nurse Practitioner Acute Care; Physician Assistant; Physician Assistant Medical; Student in an Organized Health Care Education/Training Program; Admitting Provider Nurse Practitioner Family; Emergency Provider Emergency Medicine; PCP Family Medicine; Visit Provider Physician Assistant
DX: J18.0 Bronchopneumonia, unspecified organism (principal); J96.21 Acute and chronic respiratory failure with hypoxia; I50.33 Acute on chronic diastolic (congestive) heart failure; G92.8 Other toxic encephalopathy; E66.2 Morbid (severe) obesity with alveolar hypoventilation; E87.3 Alkalosis; E11.65 Type 2 diabetes mellitus with hyperglycemia; B96.3 Hemophilus influenzae [H. influenzae] as the cause of diseases classified elsewhere; J44.0 Chronic obstructive pulmonary disease with (acute) lower respiratory infection; Z99.81 Dependence on supplemental oxygen; J96.22 Acute and chronic respiratory failure with hypercapnia; F11.20 Opioid dependence, uncomplicated; J44.1 Chronic obstructive pulmonary disease with (acute) exacerbation; E78.5 Hyperlipidemia, unspecified; F39 Unspecified mood [affective] disorder; Z20.822 Contact with and (suspected) exposure to COVID-19; E88.810 Metabolic syndrome; Z68.41 Body mass index [BMI] 40.0-44.9, adult; Z87.891 Personal history of nicotine dependence; Z79.4 Long term (current) use of insulin; Z79.84 Long term (current) use of oral hypoglycemic drugs; Z79.899 Other long term (current) drug therapy
CPT/HCPCS: 0241U; 36415; 36600; 70450; 71045; 71250; 71275; 74176; 80048; 80076; 80202; 80307; 81001; 81003; 82040; 82140; 82803; 82947; 83605; 83615; 83735; 83880; 84100; 84145; 84443; 84484; 85007; 85025; 85027; 85652; 86140; 87040; 87070; 87077; 87185; 87205; 87633; 87640; 87641; 92526; 92610; 92950; 93005; 94002; 94003; 94640; 94660; 99285; C1758; C9113; J0330; J0360; J0637; J0692; J0696; J1120; J1170; J1644; J1920; J1940; J2250; J2270; J2310; J2704; J2919; J3010; J3370; J3371; J3475; Q9967

== ENCOUNTER → 2023-07-16 10:29 | Outpatient (BNV) | payer MEDICAID, SELFPAY | PROVIDERS: Emergency Provider Emergency Medicine; PCP Family Medicine; Visit Provider Internal Medicine | DX: R00.0 Tachycardia, unspecified (principal); I45.10 Unspecified right bundle-branch block | CPT/HCPCS: 93010 ==

== ENCOUNTER 2023-07-16 19:14 | Outpatient (BNV) | payer MEDICAID, SELFPAY | END 2023-07-23 08:26 | PROVIDERS: Admitting Provider Nurse Practitioner Family; Emergency Provider Emergency Medicine; PCP Family Medicine; Visit Provider Internal Medicine Cardiovascular Disease | DX: R06.02 Shortness of breath (principal) | CPT/HCPCS: 93010 ==

== ENCOUNTER → 2023-07-16 19:14 | Outpatient (BNV) | payer MEDICAID, SELFPAY | PROVIDERS: Admitting Provider Nurse Practitioner Family; Emergency Provider Emergency Medicine; PCP Family Medicine; Visit Provider Nurse Practitioner Family | DX: J96.21 Acute and chronic respiratory failure with hypoxia (principal); J96.22 Acute and chronic respiratory failure with hypercapnia; J44.9 Chronic obstructive pulmonary disease, unspecified; J18.9 Pneumonia, unspecified organism; G93.41 Metabolic encephalopathy | CPT/HCPCS: 99291; 99292 ==

== ENCOUNTER → 2023-07-16 19:14 | Outpatient (BNV) | payer MEDICAID, SELFPAY | PROVIDERS: Admitting Provider Nurse Practitioner Family; Emergency Provider Emergency Medicine; PCP Family Medicine; Visit Provider Internal Medicine Pulmonary Disease | DX: G47.33 Obstructive sleep apnea (adult) (pediatric) (principal); J44.9 Chronic obstructive pulmonary disease, unspecified | CPT/HCPCS: 99222; 99232 ==

== ENCOUNTER → 2023-07-16 19:14 | Outpatient (BNV) | payer MEDICAID, SELFPAY | PROVIDERS: Admitting Provider Nurse Practitioner Family; Emergency Provider Emergency Medicine; PCP Family Medicine; Visit Provider Physician Assistant Medical | DX: G47.33 Obstructive sleep apnea (adult) (pediatric) (principal); E66.2 Morbid (severe) obesity with alveolar hypoventilation; J44.9 Chronic obstructive pulmonary disease, unspecified; J96.21 Acute and chronic respiratory failure with hypoxia; J96.22 Acute and chronic respiratory failure with hypercapnia | CPT/HCPCS: 99232; 99233; 99239; 99499 ==

== ENCOUNTER 2023-07-28 10:26 | Outpatient (AMB) | payer MEDICAID, SELFPAY ==
--- NOTE | 2023-07-28 10:30 | MHC.OFFVIS ---
Vital Signs 07/28/23 10:33 Height 5 ft Weight 250 lb BMI 48.8 Intake Visit Reasons: COPD/[facility] ER Follow Up Property Management Assistant Required: No Allergies No Known Allergies [No Known Allergies*] Allergy (Verified 07/28/23 10:34) HPI Comments Details: The patient is a 53-year-old woman with a known history of asthma COPD overlap syndrome, chronic hypercarbic and hypoxic respiratory failure currently on oxygen and also on a noninvasive ventilator. She has been on high doses of prednisone currently on chronic steroids for ongoing respiratory issues. Recently she was placed on a prednisone taper. She is down to 30 mg at this time. She does respond well to noninvasive ventilator which she uses at nighttime and also as needed. Today she appears to be more dyspneic in appearance. It was apparent that her pulse ox was stable at 97% on her current oxygen however she was significantly tachycardic up to the 130s. I did offer her to get x-rays labs in an EKG today but, the patient opted on getting the tomorrow. I explained to her her symptoms worsen she is to go to the ER to be evaluated. We also talked about her respiratory failure where appears to be getting worse. The patient benefits from a wheelchair to help her with transportation and her appointments. She also may benefit from a sip and puff device as an accessory to noninvasive ventilator which she could potentially use it outside of the home for her progressive respiratory failure. She has been taking theophylline. Had planned to increase her theophylline. however, with the increased heart rate will hold off at this time. herABG from May 2019 demonstrated a pH 7.44 with a pCO2 of 69. Her bicarb also has been elevated at 41. Once we optimize her respiratory therapy with noninvasive ventilator will recheck her blood gas. In the meantime will check a theophylline level and also increase her theophylline level accordingly. Patient did develop worsening respiratory symptoms approximately 3-4 weeks ago. Therefore we will have her get checked for the SARS CoV 2 IgG antibodies. Unfortunately, the patient continues to smoke. We did talk about smoking cessation. Her is going to try to quit and once he quits he is not going to provide her with anymore cigarettes which should be very effective and helping her quit smoking. 12/19/2022 the patient is here for pulmonary follow-up visit. He is in the hospital. She has been complaining of a right lower extremity pain. She had another Doppler which was negative for DVT. Her legs indeed swollen and somewhat erythematous. She is also having pain in the bottom referred. Breathing flowers she is still having hard time breathing. She is trying to use her noninvasive ventilator during the daytime. Her blood gases overall have been reassuring although her CO2 continues to climb slowly. Her bicarb is also elevated. Therefore will try some Diamox to see we can decrease the bicarb in order to be able to be released at additional CO2. If she tolerates the use of Diamox for 3 days we can also consider adding in the small dose 3 times a week. Will readdress that with repeat blood work in a venous gas in 2 weeks and then will have her see follow-up in 3 weeks. She also ended up getting the sip and puff device although she has not been able to use it because the pressures are too high. Will have to further adjust the pressures according. Since she left the hospital she has been on 40 mg of prednisone. Just yesterday she dropped down to 30 mg because she should really be at a baseline of 20 mg. She will then taper down weeks time to 25 and then again to 20 mg. We will increase her azathioprine that she is taking in order to try to minimize her steroid use and she can increase that to 100 mg. She is taking folate and will add biotin because she will have further hair loss. Unfortunately, even with all these issues the patient continues to smoke cigarettes. She understands that all this medications will being vain if she continues to smoke cigarettes worsening overall health. 01/14/2023 the patient is here for pulmonary follow-up visit. She has been having hard time with the breathing. She is been getting worse. She called initially last week because of the worsening respiratory symptoms. She had blood work done demonstrating chronic hypercarbic respiratory failure and hypoxia with a normal pH which is reassuring. She continues use her noninvasive ventilator at nighttime and also during the daytime. She was started on a prednisone taper and also given a course of levofloxacin for her worsening cough and chest congestion. Was also noted that during the hospitalizations her microbiology was positive for Aspergillus. The patient has been on immunomodulator therapies and also cortical steroids therefore significantly immunocompromised. Therefore, it is reasonable to treat the Aspergillus as a potential pathogen. Will finish the course of Levaquin and then she can start the voriconazole. The patient will going to wean down the prednisone down to 20 mg and will continue taking the Imuran 100 mg. the theophylline levels were undetected although she was told to stop the theophylline when she was in a hospital. Therefore will hold off on theophylline specially with other adverse effects in all the potential medication interactions. We did talk about the severity of her disease. She has end-stage respiratory failure. The patient will need to continue to use the ventilator during the nighttime and also during the daytime. Explained to them that has a battery life about 8 hours and therefore she can not carry the ventilator with her with a fullface mask and she can use it. The mouthpiece, sip and puff, did not work well for her she could not get a good seal and tolerated. Therefore will just continue using the fullface mask for now. If her condition continues to worsen did talk about briefly about a tracheostomy but she understands that this comes with other potential adverse effects and potential complications. 01/30/2023 the patient is here for a pulmonary follow-up visit. She is feeling better. She is down to 30 mg of prednisone. Has not been able to get lower than that. I had sent her a prescription for high dose Imuran but she has not been able to get as of yet. I will resubmit again to the pharmacy. When she is on the higher dose of Imuran hopefully we can decrease her prednisone some. She continues on the IVIG infusions. The patient did start the voriconazole although difficult for her to tolerated. She will continue to take it for now. She continues with her aggressive respiratory therapy. She still has excess lower extremity swelling specially the right lower extremity. We already did Doppler studies ruling out DVT. However, if the leg continues to be swollen I did advise her to go see urgent medical advice to get a repeat ultrasound. In the meantime will increase her diuretic to see if we can improve her volume status and therefore improve the lower extremity edema. The patient also is aware that this area can get infected. If it appears to be more erythematous she can always call her primary care doctor urgent care to be evaluated for cellulitis. The patient continues use her noninvasive ventilator. She is with it all night and seems to be tolerating it well during the daytime as well. The patient does have advanced respiratory failure and at this point she will require assistance from her noninvasive ventilator between 12-16 hours a day we did talk about the portability of the noninvasive ventilator that she can use it outside of the home with a battery life of 6-8 hours. 02/20/2023 the patient is here for a pulmonary follow-up visit. Overall she is doing better. She continues on 20 mg of prednisone. Sometimes she does take an additional 1. She also increase the amiodarone 200 mg daily. Although does not seem to be accurate at the pharmacy. I will resend that again for the right amount of medication. She did complete the voriconazole already. She has been getting the IVIG infusions. She is going to go today for next dose. She will get that every months. She is also working on quitting smoking which is reassuring. She is also using the noninvasive ventilator which she seems to be tolerating better. Overall she is in a better state. She is getting out another ultrasound of her lower extremity to rule out DVT. I did give her prescription for compression stockings that she should use in case her lower extremity Dopplers comes back negative again for clots. If it does have a clot she should avoid using the compression stockings until she sees the ordering physician. The patient does continue to use her respiratory therapy. She has been using her oxygen with good effect. The oxygen has been affecting beneficial. She is willing to start pulmonary rehabilitation at this time. 03/27/2023 the patient is here for pulmonary follow-up visit. The patient continues to do fairly well. She continues on the prednisone. Unfortunately she has not been able to get down below 30 mg. Typically takes 20 mg in the morning and 10 mg at nighttime. She did complete the voriconazole. And we also increase the Imuran. Seems to be tolerating it well although she still needs the prednisone because if she does not take it she feels like her breathing is getting worse. She has been using noninvasive ventilator with good effect. She is cutting down the smoking which is reassuring but she is still smoking. She continues IVIG therapy. This has been very helpful specially with immunocompromised state and minimizing hospitalizations. The patient also is going to start participating in pulmonary rehabilitation which I believe is a great option for her. She will get a flu shot today she will follow-up in about 4 weeks. 05/02/2023 the patient is here for a pulmonary follow-up visit. She was recently in the hospital with COPD exacerbation. Now she is back to her baseline. The patient continues to be on the prednisone. She typically takes around 30 mg a day although sometimes she may take more. We talked about different ways to decrease the amount of prednisone that she is taking. We also started her on Imuran which she seems to be tolerating a dose of 100 mg to minimize the need for prednisone. Still she has a difficult time. As far as her immune system she continues to receive IVIG every 4 weeks with good effect. Her breathing still not at baseline therefore she has been holding off on the pulmonary rehabilitation. Recently she felt like she started developing a cough into chest congestion. She is monitoring closely symptoms will go ahead and put her some antibiotics. As far as her noninvasive ventilation she continues to use her ventilator with very good effect. The patient does use it every night and she also uses it during the daytime. Her last few times them her blood gases have demonstrated stable hypercarbia consistent with chronic hypercarbic respiratory failure. She continues to smoke cigarettes although she is cutting down significantly. She is very motivated at this time. I am hopeful that she can call up in start pulmonary rehabilitation when she feels better. 07/28/2023 the patient has a telehealth visit today. She was recently hospitalized. Apparently she did have an appointment with me that day but she developed significant altered mental status and she was having some difficulty breathing. Therefore EMS was called to her home. She was brought to the [facility] ER where she was actually admitted and intubated briefly. She was treated for COPD exacerbation. Her sputum culture was positive for Haemophilus influenzae. The patient was treated and released. She still has chest congestion. Will go ahead and continue to treat Haemophilus. She continues on 20 mg of prednisone which she should continue until we further evaluate her. She continues with respiratory therapy. She has been using her noninvasive ventilator. [facility] Medical History (Updated 07/28/23 @ 12:50 by Allan Brito MD) Asthma CHITO (obstructive sleep apnea) Type 2 diabetes mellitus Opioid dependence Constipation Salmonella gastroenteritis Obesity with alveolar hypoventilation Congestive heart failure Chronic constipation Acute respiratory failure Hypertensive cardiovascular disease Pulmonary nodule Chronic respiratory failure Tobacco abuse Asthma-COPD overlap syndrome Hyperlipidemia, unspecified Essential hypertension Chronic respiratory failure Surgical History H/O tubal ligation Family History Father Diabetes Other Asthma Social History Household Members: Children Household Members Other:: daughter Housing: Apartment Do you presently have visiting nurse or other home services: Yes Unable to assess alcohol history related to: Unknown Alcohol intake: never Comment: 254 Patient Tobacco Use Status: Former Tobacco user Quit Date: February 2022 Tobacco use type: Cigarette Cigarettes Per Day: 1 Years Smoked: 35 e-Cigarette/Vaping Use: Currently Using Second Hand Smoke Exposure: No Substance Use Type: Opiates Advance Directives Date on File: 06/12/21 service: No Current occupational status: unemployed and disabled Review of Systems Const Denies night sweats ENT Denies change in voice, Denies lip swelling, Denies mouth pain, Reports nasal congestion, Reports nasal discharge and Denies tongue swelling Card Denies chest pain, Reports leg edema, Reports dyspnea and Reports dyspnea on exertion Resp Denies change in phlegm color, Denies chest congestion, Reports cough, Denies hemoptysis, Reports dyspnea, Reports dyspnea on exertion and Reports wheezing GI Reports abdominal pain Musc Denies no additional complaints Skin/Breast Denies pruritus and Denies lesions Neuro Denies Neuro-related abnormal movements Psych Denies no additional complaints Blade/Lymph Denies easy bleeding and Denies lymphadenopathy Aller/Immun Denies lip swelling, Denies tongue swelling and Reports wheezing Physical Exam Vital Signs: BMI result Body Mass Index 48.8 Const General: cooperative and comfortable Orientation/consciousness: patient oriented x3 Resp Effort & Inspection: normal respiratory effort and able to speak in complete sentences Neuro General: patient oriented x3 Quality Reporting (2019) Adult ([facility] 138/05/08/68) Smoking risk assessment performed?: Yes Patient Tobacco Use Status: Former Tobacco user Telehealth Telehealth Telehealth Platform: Telephone Location of provider rendering services: practice address Location of patient: address on file Patient Identification confirmed using: Name, : Yes Telehealth method: voice only Patient verbally consented to treatment: Yes Patient verbally consented to billing insurance company: Yes Patient informed of any privacy concerns related to visit: Yes Assessment & Plan Assessment & Plan (1) COPD (chronic obstructive pulmonary disease): Code(s): J44.9 - Chronic obstructive pulmonary disease, unspecified Category: Medical Qualifiers: COPD type: chronic bronchitis Chronic bronchitis type: mixed simple and mucopurulent Qualified Code(s): J41.8 - Mixed simple and mucopurulent chronic bronchitis (2) Left leg swelling: Code(s): M79.89 - Other specified soft tissue disorders Category: Medical (3) Asthma-COPD overlap syndrome: Code(s): J44.9 - Chronic obstructive pulmonary disease, unspecified Category: Medical (4) Chronic respiratory failure: Code(s): J96.10 - Chronic respiratory failure, unspecified whether with hypoxia or hypercapnia Category: Medical Qualifiers: Respiratory failure complication: hypoxia and hypercapnia Qualified Code(s): J96.11 - Chronic respiratory failure with hypoxia; J96.12 - Chronic respiratory failure with hypercapnia (5) Hypercapnic respiratory failure: Code(s): J96.92 - Respiratory failure, unspecified with hypercapnia Category: Medical Qualifiers: Chronicity: chronic Qualified Code(s): J96.12 - Chronic respiratory failure with hypercapnia (6) Tobacco abuse: Code(s): Z72.0 - Tobacco use Category: Medical (7) Hypogammaglobulinemia: Code(s): D80.1 - Nonfamilial hypogammaglobulinemia Category: Medical Plan continue NIV while sleeping and while awake. Mouth piece not helpful, will use FM start Augmentin continue prednisone 20mg daily bactrim PCP prophylaxis continue Imuran 100mg daily, monitor liver enzymes respiratory therapy, Nebs QID Needs to quit smoking, cutting down continue IVIG every 4 weeks Daliresp continue Lasix daily F/U 3-4 weeks Medications: New amoxicillin-pot clavulanate 875-125 mg 1 tab PO BID 20 tabs 0RF 10 days prednisone 20 mg (2 x 10 mg) PO DAILY 60 tabs 6RF 30 days guaifenesin ER (Mucinex) 1,200 mg PO Q12H 60 tabs 2RF 30 days Coding Level of Care Code Tele Est Pt Level 4 (73501) Diagnoses Mixed simple and mucopurulent chronic bronchitis J41.8 COPD type: chronic bronchitis Chronic bronchitis type: mixed simple and mucopurulent Left leg swelling M79.89 Asthma-COPD overlap syndrome J44.9 Chronic respiratory failure with hypoxia and hypercapnia J96.11; J96.12 Respiratory failure complication: hypoxia and hypercapnia Chronic respiratory failure with hypercapnia J96.12 Chronicity: chronic Tobacco abuse Z72.0 Hypogammaglobulinemia D80.1 Time Spent (min) 16
[2023-07-28 10:33] VITALS: BMI 48.8
== END 2023-07-28 10:36 | disposition home or self-care (01) ==
LOC: HO.HPS 10:26
PROVIDERS: PCP Family Medicine; Visit Provider Hospitalist
DX: J41.8 Mixed simple and mucopurulent chronic bronchitis (principal); M79.89 Other specified soft tissue disorders; J96.11 Chronic respiratory failure with hypoxia; J96.12 Chronic respiratory failure with hypercapnia; Z72.0 Tobacco use; D80.1 Nonfamilial hypogammaglobulinemia
CPT/HCPCS: 99214

== ENCOUNTER → 2023-07-28 10:26 | Outpatient (BNVA) | payer MEDICAID, SELFPAY | PROVIDERS: PCP Family Medicine; Visit Provider Hospitalist ==

== ENCOUNTER 2023-08-02 13:20 | Inpatient (IN) | payer MEDICAID, SELFPAY ==
[2023-08-02] VITALS (11 sets, daily range): BP systolic 111–147; BP diastolic 74–89; PULSE 84–112; RESP 13–22; TEMP 36.7–36.8; O2SAT 89–96; BMI 39.0
--- NOTE | ~2023-08-02 | CT_ITS ---
EXAMINATION: CT HEAD WITHOUT CONTRAST CLINICAL INFORMATION: Asymmetric pupils. COMPARISON: MRI performed 12/31/2023 TECHNIQUE: Contiguous axial imaging was performed from the skull base to vertex without intravenous administration of contrast. This CT examination was performed using dose optimization techniques as appropriate, variously including the following: *Automated exposure control *Adjustment of mA and/or kV according to patient size (this includes techniques or standardized protocols for targeted exams where dose is matched to indication/reason for exam; i.e. extremities or head) *Use of iterative reconstruction technique DLP: 680 mGy-cm FINDINGS: The lateral, third and fourth ventricles are normally outlined. The cortical sulci and basal cisterns are normally outlined as well. There is mild bilateral periventricular and central white matter diminished attenuation. There is no acute territorial defect, hemorrhage or midline shift. The extra-axial spaces are unremarkable. Calvarium/scalp: Intact. Maxillofacial sinuses and mastoids: There is a sphenoid sinus opacity. The remaining visualized maxillofacial sinuses and mastoids are clear. CT/CT head/brain wo IV con IMPRESSION: 1. No acute intracranial process. 2. Mild chronic small vessel ischemic changes. 3. Sphenoid sinus opacity was seen on prior MRI.
--- NOTE | ~2023-08-02 | US_ITS ---
EXAMINATION: US VENOUS WITH DOPPLER UPPER EXTREMITY, BILATERAL CLINICAL INFORMATION: Bilateral upper extremities edema COMPARISON: None available. TECHNIQUE: Ultrasound of the upper extremity is performed using compression sonography and color and pulse Doppler flow with assessment of augmentation of flow. There is also imaging and Doppler assessment of the jugular and subclavian veins. Spectral analysis with color-flow imaging is performed. FINDINGS: There are acute clots identified in bilateral cephalic veins, right radial vein, left brachial , left basilic vein, and there is clot surrounding intravenous catheter in antecubitus fossa. Bilateral internal jugular veins are not approachable due to artifact from tracheostomy. There is marked edema in bilateral arms. US/US venous duplex UE BI IMPRESSION: Lateral upper extremities DVT.
--- NOTE | ~2023-08-02 | XR_ITS ---
EXAMINATION: XR CHEST CLINICAL INFORMATION: Hypoxia COMPARISON: 08/12/2019 TECHNIQUE: Frontal view of the chest was obtained. FINDINGS: There are ill-defined patchy airspace disease seen bilaterally most likely due to pneumonia. Cardiomediastinal silhouette is unremarkable. XR/XR chest 1V IMPRESSION: Patchy airspace disease seen bilaterally.
--- NOTE | ~2023-08-02 | XR_ITS ---
EXAMINATION: XR CHEST CLINICAL INFORMATION: Status post tracheostomy COMPARISON: Chest radiograph yesterday TECHNIQUE: Frontal view of the chest was obtained. FINDINGS: Since yesterday, the ET tube has been removed and a tracheostomy is in place in good position in the midline. There is mild increased volume loss in the left chest with a small pleural effusion and left basilar atelectasis. XR/XR chest 1V IMPRESSION: Tracheostomy in good position. Small left pleural effusion and left basilar atelectasis.
--- NOTE | ~2023-08-02 | CT_ITS ---
EXAMINATION: CT ABDOMEN AND PELVIS WITHOUT CONTRAST CLINICAL INFORMATION: Flank hematoma COMPARISON: Previous CT of the abdomen and pelvis 08/26/2023 TECHNIQUE: Multidetector volumetric imaging was performed from the superior aspect of the liver through the pubic symphysis. Sagittal and coronal reformatted images were obtained on the technologist's workstation. This CT examination was performed using dose optimization techniques as appropriate, variously including the following: *Automated exposure control *Adjustment of mA and/or kV according to patient size (this includes techniques or standardized protocols for targeted exams where dose is matched to indication/reason for exam; i.e. extremities or head) *Use of iterative reconstruction technique DLP: 1007 mGy-cm FINDINGS: LUNG BASES: Subsegmental atelectasis at the left lung base and small left pleural effusion. LIVER, GALLBLADDER, AND BILIARY TREE: Fatty liver. Liver is enlarged. Normal gallbladder. No focal liver lesion or biliary duct dilatation. PANCREAS: Unremarkable. SPLEEN: Unremarkable. ADRENAL GLANDS: Unremarkable. KIDNEYS AND URETERS: Mild left hydronephrosis and proximal ureteral dilatation. The left kidney is displaced anteriorly by a new large left retroperitoneal hematoma. This involves the left psoas and iliacus muscles and extends into the pelvis. This has a hematocrit and fluid fluid levels. There is are small foci of air. Possible infected hematoma should be considered.The right kidney is unremarkable. BLADDER: The bladder is displaced to the right by the large left retroperitoneal hematoma. GASTROINTESTINAL TRACT: The small and large bowel are unremarkable. The appendix is unremarkable. G-tube in the stomach. ABDOMINAL WALL: There is prominence of the left lateral abdominal wall muscles and surrounding fat stranding probably related to hematoma. LYMPH NODES: Normal. VASCULAR: Unremarkable. PELVIC VISCERA: Unremarkable. OSSEOUS STRUCTURES: Old bilateral rib fractures. Old lumbar compression fractures. Generalized osteopenia. Degenerative changes of the spine. CT/CT abdomen pelvis wo IV con IMPRESSION: New large left retroperitoneal hematoma involving the left psoas and iliacus muscles extending into the pelvis. This displaces the left kidney anteriorly and displaces the bladder to the right. Several small air foci are questionable for possible infected hematoma. New mild left hydronephrosis and proximal ureteral dilatation probably secondary to hematoma. Findings were communicated to Dr. Geller by the [facility] psychiatric mental health nurse on 09/07/2023 at 1247 hours. Fleischner guidelines were followed.
--- NOTE | ~2023-08-02 | US_ITS ---
EXAMINATION: US VENOUS ULTRASOUND WITH DOPPLER LOWER EXTREMITY, LEFT CLINICAL INFORMATION: Edema. COMPARISON: None available. TECHNIQUE: Ultrasound of the deep veins is performed from the hip to the calf with compression sonography and color and pulse Doppler assessment. Spectral analysis with color-flow imaging is performed. FINDINGS: There is normal venous compression and respiratory variation and augmented flow. The visualized common femoral vein, superficial femoral vein, profunda femoral vein, popliteal vein, and the trifurcation region shows no evidence of deep venous thrombosis. There is no significant popliteal fossa cyst. If the patient's symptoms persist, followup ultrasound in 5 days 7 days might be of value to exclude proximal propagation from a non-visualized calf vein. US/US venous duplex LE LT IMPRESSION: No DVT demonstrated in the left lower extremity.
--- NOTE | ~2023-08-02 | XR_ITS ---
EXAMINATION: XR ABDOMEN KUB CLINICAL INDICATION: Gastrografin test positive PEG tube dislocation. COMPARISON: CT abdomen and pelvis of July 16, 2023 Limited visualization due to technical factors. TECHNIQUE: AP view of the abdomen. FINDINGS: Oral contrast present in the stomach and in prominent loops of small bowel in the central abdomen. Gas and stool are seen in the colon. No abnormally dilated loops of bowel are appreciated. XR/XR KUB IMPRESSION: Unremarkable examination. Oral contrast present in the stomach and in prominent loops of small bowel in the central abdomen. Gas and stool are seen in the colon. No abnormally dilated loops of bowel are appreciated. This study was presented today August 18, 2023 for interpretation. STAT results provided at this time as requested by referring provider.
--- NOTE | ~2023-08-02 | XR_ITS ---
EXAMINATION: XR CHEST CLINICAL INFORMATION: ETT and OGT placement COMPARISON: 08/05/2023 TECHNIQUE: Frontal view of the chest was obtained. FINDINGS: There is endotracheal tube present with the tip 2.5 cm above the kellen. Nasogastric tube is below the diaphragm. There is ill-defined right upper lobe nodule and possible right middle lobe infiltrate. XR/XR chest 1V IMPRESSION: Well-positioned support tubes and lines. Right upper lobe and possibly right middle lobe airspace
--- NOTE | ~2023-08-02 | XR_ITS ---
EXAMINATION: XR chest 1V CLINICAL INFORMATION: Respiratory distress COMPARISON: 08/02/2023 TECHNIQUE: Single portable frontal view. Tubes and lines: None Lungs and pleura: Redemonstration of mild diffuse interstitial opacification, opacity left upper lobe correlate with a rib fracture as seen on recent CT from 07/24/2023. Heart and mediastinum: The mediastinum is within normal limits.. Bones/soft tissue: Multiple old rib fractures. XR/XR chest 1V IMPRESSION: 1. Redemonstration of left upper lobe opacity correlate with rib fracture as seen on recent CT from 07/24/2023. 2. Mild diffuse interstitial opacification unchanged.
--- NOTE | ~2023-08-02 | XR_ITS ---
EXAMINATION: XR CHEST CLINICAL INFORMATION: s/p Andrea placement COMPARISON: Chest radiograph 09/05/2023 TECHNIQUE: AP view of the chest was obtained. FINDINGS: Interval placement of right IJ central venous catheter with tip overlying the mid SVC. Midline tracheostomy. The lungs are mildly hypoexpanded. No dense focal consolidation, pleural effusion, pulmonary edema pneumothorax. The cardiomediastinal silhouette is within normal limits for technique and unchanged. Aortic arch calcifications again seen. Multilevel bilateral chronic rib fractures noted. No acute osseous abnormality. XR/XR chest 1V IMPRESSION: 1. Interval placement of right IJ central venous catheter with tip overlying the mid SVC. No pneumothorax. 2. No acute pulmonary disease.
--- NOTE | ~2023-08-02 | CT_ITS ---
EXAMINATION: CT CHEST, ABDOMEN AND PELVIS WITHOUT CONTRAST CLINICAL INFORMATION: Fever. Concern for infection. COMPARISON: None available. TECHNIQUE: Multidetector volumetric CT imaging of the chest, abdomen and pelvis was done. Axial MIP volume rendering provided. Sagittal and coronal reformatted images were obtained. This CT examination was performed using dose optimization techniques as appropriate, variously including the following: *Automated exposure control *Adjustment of mA and/or kV according to patient size (this includes techniques or standardized protocols for targeted exams where dose is matched to indication/reason for exam; i.e. extremities or head) *Use of iterative reconstruction technique DLP: 956 mGy-cm FINDINGS: PRODUCTION DEPARTMENT SUPERVISOR: There are bibasilar opacities. LUNGS: There is left lung base consolidation with some air bronchogram formation. There is mild atelectatic change at the right lung base and anterior left lung base. There is a small right upper lobe infiltrate. MEDIASTINUM: The mediastinum is normal. CORONARY ARTERY CALCIFICATION: Minimal PLEURA: There is no pleural effusion. No pleural mass or thickening. AXILLA: No lymphadenopathy. LIVER, GALLBLADDER, AND BILIARY TREE: The liver is of diminished attenuation. No focal liver lesions are seen. There is no intrahepatic biliary duct dilatation.The gallbladder is unremarkable with no evidence of radiopaque gallstones, gallbladder wall thickening, or obvious pericholecystic inflammatory changes. PANCREAS: Unremarkable SPLEEN: Unremarkable ADRENAL GLANDS: Unremarkable KIDNEYS AND URETERS: The kidneys are normal in size, shape, and attenuation. No hydronephrosis, hydroureter, or calculi seen. No perinephric stranding. BLADDER: Unremarkable GASTROINTESTINAL TRACT: A G-tube is noted in place. A rectal tube is also place. The appendix is within normal limits. ABDOMINAL WALL: No significant hernia is appreciated. LYMPH NODES: Normal VASCULAR: Unremarkable PELVIC VISCERA: Unremarkable OSSEOUS STRUCTURES: There is diffuse thoracolumbar disc degenerative change. CT/CT abdomen pelvis w IV con IMPRESSION: IMPRESSION: 1. Left lung base consolidation with some air bronchogram formation. There is a small right upper lobe infiltrate. These findings are consistent with pneumonia. 2. Fatty infiltration of the liver. 3. No acute abnormality in the abdomen or pelvis. Fleischner guidelines were followed.
--- NOTE | ~2023-08-02 | MR_ITS ---
EXAMINATION: MR BRAIN WITHOUT AND WITH CONTRAST CLINICAL INFORMATION: Persistent encephalopathy. COMPARISON: CT head from 08/26/2023. Brain MRI from 08/10/2023. TECHNIQUE: MRI of the brain was obtained using routine sequences without and following the administration of 9 mL of Gadavist intravenous contrast. FINDINGS: No focal restricted diffusion is demonstrated to suggest acute or subacute cerebral ischemia. No evidence of acute or chronic hemorrhagic products on heme-sensitive imaging. Scattered and partially confluent periventricular, deep white matter, brainstem, and cerebellar T2 FLAIR hyperintensities most commonly seen with moderate underlying microangiopathy. Chronic lacunar infarcts of the bilateral thalami and cerebellum. The ventricles are normal in morphology and size. No abnormal mass effect. No midline shift. Normal appearance of the pituitary gland. Normal positioning of the cerebellar tonsils. Normal arterial and venous vascular flow voids are present. No abnormal contrast enhancement. Normal, homogeneous marrow signal. Moderate mucosal thickening of the paranasal sinuses. Moderate bilateral mastoid effusions. Prior imaging demonstrated prominent multifocal odontogenic disease with prominent periapical cyst along the maxillary right incisors. Bilateral lens extractions. MR/MR head/brain wo/w con IMPRESSION: 1. No acute intracranial abnormalities. No abnormal intracranial enhancement. 2. Nonspecific moderate underlying white matter changes most commonly seen with underlying microangiopathy. Chronic lacunar infarcts of the deep nuclei and cerebellum.
--- NOTE | ~2023-08-02 | CT_ITS ---
EXAMINATION: CT ABDOMEN AND PELVIS WITHOUT CONTRAST CLINICAL INFORMATION: Retroperitoneal bleed COMPARISON: 09/07/2023 TECHNIQUE: Multidetector volumetric imaging was performed from the superior aspect of the liver through the pubic symphysis. Sagittal and coronal reformatted images were obtained on the technologist's workstation. This CT examination was performed using dose optimization techniques as appropriate, variously including the following: *Automated exposure control *Adjustment of mA and/or kV according to patient size (this includes techniques or standardized protocols for targeted exams where dose is matched to indication/reason for exam; i.e. extremities or head) *Use of iterative reconstruction technique DLP: 816 mGy-cm FINDINGS: EDITORIAL DIRECTOR: Protuberant abdomen. LUNG BASES: Increasing left pleural effusion and left lower lobe atelectasis/consolidation. LIVER, GALLBLADDER, AND BILIARY TREE: Diffuse hypoattenuation to the liver parenchyma. No focal hepatic lesions or intrahepatic biliary ductal dilatation. Vicarious excretion of contrast in otherwise unremarkable gallbladder. PANCREAS: Unremarkable. SPLEEN: Unremarkable. ADRENAL GLANDS: Unremarkable. KIDNEYS AND URETERS: The kidneys are normal in size, shape, and attenuation. The left kidney remains anteriorly displaced due to left retroperitoneal hematoma. Mild left intrarenal collecting system fullness. No hydronephrosis, hydroureter, or calculi seen. No perinephric stranding. BLADDER: Urinary bladder remains decompressed and displaced to the right due to pelvic hematoma. RETROPERITONEUM AND PERITONEUM: Enlarged heterogeneous left psoas and iliac as hematoma has decreased in size. Associated left paracolic gutter heterogeneous fluid collection with air droplets again seen without significant interval change. Evolving midline to left sided pelvic hematoma has less low density fluid component and fluid fluid level is no longer appreciated. Small increase in AP diameter appears to 10.2 cm from 8.9 cm may present at the inferior aspect of the collection. No significant change in transverse diameter or superior component. Increasing left upper quadrant perisplenic and anterior lower pelvic fluid. GASTROINTESTINAL TRACT: G-tube in distended stomach containing air-fluid level. Nonobstructive bowel pattern. No colonic pathology given study limitations. Decompressed descending colon. Question rectal anastomotic suture line. ABDOMINAL WALL: No significant hernia is appreciated. Diffuse anterior abdominal muscular atrophy. LYMPH NODES: No pathologic lymphadenopathy. VASCULAR: Atherosclerotic calcifications nonaneurysmal aorta. Inferior vena cava are normal caliber. Patent portal system. PELVIC VISCERA: Ill-defined uterus continues to be displaced to the right. OSSEOUS AND SOFT TISSUE STRUCTURES: Developing anasarca. Bilateral old rib fractures. Old lumbar compression fractures. CT/CT abdomen pelvis wo IV con IMPRESSION: Likely improvement in left psoas and iliacus hematomas. Stable left paracolic gutter hemorrhage with air droplets, correlate with any recent procedure, infected hematoma not excluded. No significant change involving left pelvic hematoma, possible slight increase in AP diameter inferiorly not excluded. Slight increase in perisplenic and anterior free pelvic fluid. Developing small left pleural effusion, left base atelectasis/consolidation and anasarca. Redemonstration hepatic steatosis and mild left intrarenal collecting system fullness. Fleischner guidelines were followed.
--- NOTE | ~2023-08-02 | XR_ITS ---
EXAMINATION: XR CHEST CLINICAL INFORMATION: Hypoxia COMPARISON: CXR from 08/14/2023. Chest CT from 08/26/2023. TECHNIQUE: Frontal view of the chest was obtained. FINDINGS: Tracheostomy tube well-positioned with its tip at the level the clavicles. Lungs are well expanded. Bronchial sena appear to be diffusely thickened. There appears to be some residual nonspecific opacity from atelectasis or infiltrate in the retrocardiac region of the left lower lobe. The centrilobular nodules in both lungs seen on 08/26/2023 are not well shown radiographically. Cardiac silhouette is normal in size. There is atherosclerotic calcification of the aorta. Multiple old healed bilateral rib fractures. XR/XR chest 1V IMPRESSION: * No new abnormalities compared to the recent chest CT from 08/26/2023. * Diffusely thickened bronchial sena could be a manifestation of bronchitis. * The centrilobular nodules from aspiration or infectious bronchiolitis are not well shown radiographically.
--- NOTE | ~2023-08-02 | XR_ITS ---
EXAMINATION: XR CHEST CLINICAL INFORMATION: Tachypnea COMPARISON: Chest radiograph from 09/06/2023 TECHNIQUE: Frontal view of the chest was obtained. FINDINGS: Right-sided central venous catheter terminating in the region of the proximal SVC. Stable left lateral basilar opacities. Tracheostomy. No pneumothorax. Trachea is midline. Cardiomediastinal silhouette is stable. No large pleural effusion. Osseous structures are intact. Soft tissues are unremarkable. XR/XR chest 1V IMPRESSION: 1. Right-sided central venous catheter terminating in the region of the proximal SVC. 2. Stable left lateral basilar opacities.
--- NOTE | ~2023-08-02 | CT_ITS ---
EXAMINATION: CT HEAD WITHOUT CONTRAST CLINICAL INFORMATION: Encephalopathy, question CVA COMPARISON: 05/19/2023 TECHNIQUE: Contiguous axial imaging was performed from the skull base to vertex without intravenous administration of contrast. This CT examination was performed using dose optimization techniques as appropriate, variously including the following: *Automated exposure control *Adjustment of mA and/or kV according to patient size (this includes techniques or standardized protocols for targeted exams where dose is matched to indication/reason for exam; i.e. extremities or head) *Use of iterative reconstruction technique DLP: 712 mGy-cm FINDINGS: There is no evidence of acute intracranial hemorrhage or definitive territorial infarction. No abnormal mass effect or midline shift is seen. Tai to white matter differentiation is well preserved. No extra-axial fluid collections are identified. The ventricles are normal in size. If clinical area of decreased attenuation anterior right temporal lobe superimposed on some artifact. The osseous structures and soft tissues are normal. The mastoid air cells and visualized portions of the paranasal sinuses are notable for extensive sinus disease particularly maxillary sinuses. Support tubes in place. CT/CT head/brain wo IV con IMPRESSION: No hemorrhage. Subtle infarct in the right temporal lobe question. Depending on patient's symptoms, MRI may be obtained or short interval follow-up.
--- NOTE | ~2023-08-02 | MR_ITS ---
EXAMINATION: MR BRAIN WITHOUT CONTRAST CLINICAL INFORMATION: Cerebral vascular accident. Possible subtle infarct right temporal lobe noted on comparison CT of the head. COMPARISON: CT head 08/09/2023, 07/16/2023 TECHNIQUE: MRI of the brain was obtained using routine sequences without contrast. FINDINGS: Diffusion-weighted images demonstrate no evidence of acute infarcts. The ventricles and sulci are normal in size and configuration. Mild-moderate scattered subcortical and periventricular white matter patchy T2 hyperintensities are visualized. No intracranial tumors or hemorrhage noted. Susceptibility weighted images reveal no evidence of acute or chronic hemorrhage within the brain parenchyma. The craniocervical junction cerebellar tonsils are normal in configuration. Convex inward deformity of the superior margin of the pituitary is identified in the frequently encountered asymptomatic finding. Normal flow-related signal intensity is identified in the major intracranial vessels and dural sinuses. Fluid is noted dependently within the maxillary sinuses along with exercise mucosal thickening. Retained secretions are present throughout the left right anterior and posterior ethmoid air cells and partially within the sphenoid sinus. Mild mucosal thickening and retained secretions identified within the left frontal sinus. Bilateral ocular lens replacements are visualized. Minimal scattered fluid signal intensity is noted in the mastoid air cells and is nonspecific finding the setting of intubation MR/MR head/brain wo con IMPRESSION: *No acute intracranial abnormalities identified. No acute infarcts or intracranial hemorrhage. *Mild-moderate chronic microangiopathic ischemic changes. *Fluid within the maxillary sinuses, sphenoid sinus, bilateral ethmoid air cells and left frontal sinus. These findings are new compared with 07/16/2023 and could represent retained secretions in the setting of intubation or sinusitis.
--- NOTE | ~2023-08-02 | XR_ITS ---
EXAMINATION: XR CHEST CLINICAL INFORMATION: Confirm endotracheal tube placement and oral gastric tube placement COMPARISON: Prior chest 08/05/2023 TECHNIQUE: Frontal view of the chest was obtained. FINDINGS: Endotracheal tube 3.5 cm above kellen. Orogastric tube below diaphragm overlying the region of the stomach. The distal tip of the tube is outside the [id number] the exam. Lungs clear. Cardiomediastinal silhouette normal. XR/XR chest 1V IMPRESSION: 1. Endotracheal tube 3.5 cm above kellen. 2. Orogastric tube in stomach. Distal to outside the [id number] the exam.
--- NOTE | ~2023-08-02 | CT_ITS ---
EXAMINATION: CT CHEST, ABDOMEN AND PELVIS WITHOUT CONTRAST CLINICAL INFORMATION: Fever. Concern for infection. COMPARISON: None available. TECHNIQUE: Multidetector volumetric CT imaging of the chest, abdomen and pelvis was done. Axial MIP volume rendering provided. Sagittal and coronal reformatted images were obtained. This CT examination was performed using dose optimization techniques as appropriate, variously including the following: *Automated exposure control *Adjustment of mA and/or kV according to patient size (this includes techniques or standardized protocols for targeted exams where dose is matched to indication/reason for exam; i.e. extremities or head) *Use of iterative reconstruction technique DLP: 956 mGy-cm FINDINGS: SDET: There are bibasilar opacities. LUNGS: There is left lung base consolidation with some air bronchogram formation. There is mild atelectatic change at the right lung base and anterior left lung base. There is a small right upper lobe infiltrate. MEDIASTINUM: The mediastinum is normal. CORONARY ARTERY CALCIFICATION: Minimal PLEURA: There is no pleural effusion. No pleural mass or thickening. AXILLA: No lymphadenopathy. LIVER, GALLBLADDER, AND BILIARY TREE: The liver is of diminished attenuation. No focal liver lesions are seen. There is no intrahepatic biliary duct dilatation.The gallbladder is unremarkable with no evidence of radiopaque gallstones, gallbladder wall thickening, or obvious pericholecystic inflammatory changes. PANCREAS: Unremarkable SPLEEN: Unremarkable ADRENAL GLANDS: Unremarkable KIDNEYS AND URETERS: The kidneys are normal in size, shape, and attenuation. No hydronephrosis, hydroureter, or calculi seen. No perinephric stranding. BLADDER: Unremarkable GASTROINTESTINAL TRACT: A G-tube is noted in place. A rectal tube is also place. The appendix is within normal limits. ABDOMINAL WALL: No significant hernia is appreciated. LYMPH NODES: Normal VASCULAR: Unremarkable PELVIC VISCERA: Unremarkable OSSEOUS STRUCTURES: There is diffuse thoracolumbar disc degenerative change. CT/CT chest wo IV con IMPRESSION: IMPRESSION: 1. Left lung base consolidation with some air bronchogram formation. There is a small right upper lobe infiltrate. These findings are consistent with pneumonia. 2. Fatty infiltration of the liver. 3. No acute abnormality in the abdomen or pelvis. Fleischner guidelines were followed.
--- NOTE | ~2023-08-02 | CT_ITS ---
EXAMINATION: CT HEAD WITHOUT CONTRAST CLINICAL INFORMATION: Encephalopathy. COMPARISON: 08/09/2023 TECHNIQUE: Contiguous axial imaging was performed from the skull base to vertex without intravenous administration of contrast. This CT examination was performed using dose optimization techniques as appropriate, variously including the following: *Automated exposure control *Adjustment of mA and/or kV according to patient size (this includes techniques or standardized protocols for targeted exams where dose is matched to indication/reason for exam; i.e. extremities or head) *Use of iterative reconstruction technique DLP: 813 mGy-cm FINDINGS: There is some limitation related to motion. The lateral, third and fourth ventricles are normally outlined. The cortical sulci and basal cisterns are normally out well. There is mild bilateral periventricular and central white matter image attenuation. There is no acute territorial defect, hemorrhage or midline shift. The extra-axial spaces are unremarkable. Calvarium/scalp: Intact. Maxilla facial sinuses and mastoids: There is a right sphenoid sinus opacity. There is minimal left mastoid opacification. CT/CT head/brain wo IV con IMPRESSION: 1. No CT evidence of acute intracranial bleed. 2. Mild bilateral periventricular and central white matter low-attenuation likely chronic small vessel ischemic changes. 3. Right sphenoid sinus opacity. Minimal left mastoid opacification.
--- NOTE | ~2023-08-02 | XR_ITS ---
EXAMINATION: XR CHEST CLINICAL INFORMATION: Shortness of breath. COMPARISON: CTA chest dated 07/24/2023. TECHNIQUE: Frontal view of the chest was obtained. FINDINGS: No focal airspace consolidation. No pleural effusion or pneumothorax. Stable cardiomediastinal silhouette. Multiple bilateral healed rib fractures are redemonstrated. XR/XR chest 1V IMPRESSION: No acute cardiopulmonary findings.
--- NOTE | 2023-08-02 13:29 | ECG_ITS ---
Test Reason : SOB Blood Pressure : / mmHG Vent. Rate : 102 BPM Atrial Rate : 102 BPM P-R Int : 136 ms QRS Dur : 110 ms QT Int : 352 ms P-R-T Axes : 047 -09 032 degrees QTc Int : 458 ms Sinus tachycardia Incomplete right bundle branch block Minimal voltage criteria for LVH, may be normal variant ( R in aVL ) Cannot rule out Inferior infarct (cited on or before 23-JUL-2023) Abnormal ECG When compared with ECG of 23-JUL-2023 08:26, Non-specific change in ST segment in Anterior leads Nonspecific T wave abnormality has replaced inverted T waves in Anterior leads Referred By: Generic ED Physician Electronically Signed By:TRISTAN CASTREJON MD
[2023-08-02 14:23] LABS: Alanine Aminotransferase 45 U/L (0-31); Albumin Level 3.8 g/dL (3.5-5.0); Alkaline Phosphatase 61 U/L (39-117); Anion Gap 16 (12-20); Aspartate Amino Transferase 36 U/L (5-31); Bilirubin Total 0.3 mg/dL (0.0-1.0); Blood Urea Nitrogen 18 mg/dL (9-16); Calcium 8.8 mg/dL (8.4-10.2); Carbon Dioxide 29 mmol/L (22-29); Chloride 97 mmol/L (96-108); Creatinine Clr Calc Pharmacy 100.4; Estimated Glomerular Filt Rate > 60; Glucose Random 309 mg/dL (60-115); Magnesium 1.6 mg/dL (1.6-2.6); Potassium 4.5 mmol/L (3.3-5.1); Sodium 137 mmol/L (135-145); Total Protein 6.9 g/dL (6.5-8.0)
[2023-08-02 14:31] LABS: Troponin-I High Sensitivity 8.7 ng/L (<3.5-17.0)
[2023-08-02 14:36] LABS: Basophils Percent Auto 0.3 % (0-2); Eosinophils Percent Auto 0.3 % (0-4); Hematocrit 35.7 % (37.0-47.0); Hemoglobin 11.2 g/dl (12.0-16.0); Imm Gran Abs Auto 0.13 X10*3/uL (0.00-0.03); Imm Gran Pct Auto 1.3 % (0.0-0.4); Lymphocytes Absolute Auto 0.2 X10*3/uL (1.2-4.9); Lymphocytes Percent Auto 2.3 % (20-40); MANUAL DIFF FLAG SCAN; Mean Corpuscular HGB Conc 31.4 g/dl (31.0-35.0); Mean Corpuscular Hemoglobin 30.7 pg (27.0-33.0); Mean Corpuscular Volume 97.8 fL (80.0-98.0); Mean Platelet Volume 8.8 fL (9.4-12.3); Monocytes Absolute Auto 0.3 X10*3/uL (0.1-1.2); Monocytes Percent Auto 2.8 % (2-11); Neutrophils Absolute Auto 9.4 x10*3/uL (2.0-8.3); Platelet Count 197 X10*3/uL (160-400); Red Blood Count 3.65 X10*6/uL (4.20-5.50); Red Cell Distribution Width 14.8 % (11.0-16.0); SCAN SMEAR FLAG 1; White Blood Count 10.1 X10*3/uL (4.8-10.8)
[2023-08-02 14:39] LABS: Venous Blood Gas Refer to POC result
[2023-08-02 14:40] LABS: VBG Base Excess 7.6 mmol/L; VBG HCO3 36 mmol/L (22-26); VBG pCO2 76 mmHg; VBG pH 7.29 (7.32-7.43); VBG pO2 88 mmHg
[2023-08-02 14:50] LABS: Lactic Acid 1.2 mmol/L (0.5-2.0)
[2023-08-02 14:55] LABS: SLIDE REVIEW VERIFIED
--- NOTE | 2023-08-02 16:17 | ED_ITS ---
HPI - SOB/Dyspnea General Chief Complaint: Dyspnea Stated Complaint: SOB,98% CPAP PER EMS Time Seen by Provider: 08/02/23 16:11 Source: patient Mode of arrival: ambulatory Limitations: no limitations History of Present Illness HPI Narrative: Appearance: Somnolent with severe respiratory distress on CPAP Eyes: PERRLA, No Nystagmus ENT: Pharynx normal. Oral Mucosa moist Neck: Normal inspection. Neck supple. CVS: Normal heart rate and rhythm. Pulses normal. Respiratory: No respiratory distress. Equal air entry bilateral, decreased air entry bilaterally on CPAP Abdomen: Soft and nontender. Bowel sounds are present, no mass palpable, no CVA tenderness Skin: Skin warm and dry. Normal skin color. Normal skin turgor. Extremities: No lower extremity edema. No calf tenderness Neuro: Oriented X 3. No motor deficit. No sensory deficit.No cerebellar signs , cranial nerves II-XII intact Related Data Home Medications ?Medication ?Instructions ?Recorded ?Confirmed loratadine 10 mg tablet (Claritin) 10 mg PO DAILY 12/30/19 07/16/23 montelukast 10 mg tablet 10 mg PO BEDTIME 12/30/19 07/16/23 diltiazem HCl 360 mg capsule,24 360 mg PO DAILY 11/16/20 07/16/23 hr,extended release (Tiadylt ER) roflumilast 500 mcg tablet 500 mcg PO DAILY 11/16/20 07/16/23 (Daliresp) rosuvastatin 5 mg tablet 5 mg PO BEDTIME 11/16/20 07/16/23 metformin 500 mg tablet,extended 500 mg PO DAILY 05/18/21 07/16/23 release 24 hr methadone 10 mg/mL oral concentrate 50 mg PO DAILY 06/06/21 07/16/23 hydralazine 25 mg tablet 25 mg PO TIDWM 11/02/21 07/16/23 insulin lispro 100 unit/mL 4 unit subcut TIDAC PRN 11/02/21 07/16/23 subcutaneous solution Hyperglycemia clonazepam 1 mg tablet 1 mg PO BID PRN Anxiety 06/28/22 07/16/23 lamotrigine 150 mg tablet 150 mg PO BID 07/29/22 07/16/23 calcitonin (salmon) 200 1 spray intranasal DAILY 09/30/22 07/16/23 unit/actuation nasal spray insulin glargine 100 unit/mL 45 unit subcut BEDTIME 09/30/22 07/16/23 subcutaneous solution (Lantus U-100 Insulin) docusate sodium 100 mg capsule 100 mg PO BID PRN constipation 10/20/22 07/16/23 nebulizers 11/08/22 07/16/23 polyethylene glycol 3350 17 17 g PO DAILY constipation 12/21/22 07/16/23 gram/dose oral powder (Miralax) ammonium lactate 12 % lotion 1 appl topical DAILY Rash 02/02/23 07/16/23 diclofenac sodium 1 % topical gel 4 g topical QID PRN Pain 05/04/23 07/16/23 zolpidem 5 mg tablet 5 mg PO BEDTIME PRN Sleep 05/04/23 07/16/23 cholecalciferol (vitamin D3) 1,250 1,250 mcg PO MOTH 05/19/23 07/16/23 mcg (50,000 unit) capsule lidocaine 5 % topical patch 1 patch topical QAM PRN Pain 05/19/23 07/16/23 azathioprine 50 mg tablet 100 mg PO DAILY 06/24/23 07/16/23 prednisone 10 mg tablet See Taper PO DIRECTED 07/16/23 07/16/23 Previous Rx's ?Medication ?Instructions ?Recorded folic acid 1 mg tablet 1 mg PO DAILY 30 days #30 tabs 12/19/22 gabapentin 300 mg capsule 300 mg PO BID #60 caps 01/14/23 albuterol sulfate 90 mcg/actuation 2 puff inhalation Q4H PRN 02/19/23 aerosol inhaler (ProAir HFA) Shortness Of Breath Or Wheezing #1 ea arformoterol 15 mcg/2 mL solution 2 ml inhalation Q12H 30 days #120 02/20/23 for nebulization (Brovana) mL budesonide 0.5 mg/2 mL suspension 0.5 mg (2 mL) inhalation BID #120 02/20/23 for nebulization mL compress.stocking,knee,reg,med #2 ea 02/20/23 tiotropium bromide 18 mcg capsule 1 cap inhalation DAILY #30 ea 02/20/23 with inhalation device (Spiriva with HandiHaler) omeprazole 40 mg capsule,delayed 40 mg PO DAILY@0630 30 days #30 03/31/23 release caps furosemide 20 mg tablet 40 mg (2 x 20 mg) PO DAILY 90 days 05/06/23 #180 tabs ipratropium 0.5 mg-albuterol 3 mg 3 ml PO Q4H PRN for wheezing #540 06/05/23 (2.5 mg base)/3 mL nebulization mL soln acetazolamide 250 mg tablet 250 mg PO BID #180 tabs 07/26/23 insulin lispro 100 unit/mL See Protocol subcut QIDACHS #10 mL 07/26/23 subcutaneous solution (Admelog U-100 Insulin lispro) prednisone 10 mg tablet 10 mg PO DIRECTED #32 tabs 07/26/23 amoxicillin 875 mg-potassium 1 tab PO BID 10 days #20 tabs 07/28/23 clavulanate 125 mg tablet guaifenesin 1,200 mg tablet, 1,200 mg PO Q12H 30 days #60 tabs 07/28/23 extended release 12 hr (Mucinex) prednisone 10 mg tablet 20 mg (2 x 10 mg) PO DAILY 30 days 07/28/23 #60 tabs Allergies Allergy/AdvReac Type Severity Reaction Status Date / Time No Known Allergies Allergy Verified 08/02/23 13:35 [No Known Allergies*] [facility]LY [facility] Past Medical History Medical History (Updated 08/03/23 @ 00:18 by Benedicto Padgett MD) Asthma CHITO (obstructive sleep apnea) Type 2 diabetes mellitus Opioid dependence Constipation Salmonella gastroenteritis Obesity with alveolar hypoventilation Congestive heart failure Chronic constipation Acute respiratory failure Hypertensive cardiovascular disease Pulmonary nodule Chronic respiratory failure Tobacco abuse Asthma-COPD overlap syndrome Hyperlipidemia, unspecified Essential hypertension Chronic respiratory failure Surgical History H/O tubal ligation Family History Family History Father Diabetes Other Asthma Social History Social History Household Members: Children Household Members Other:: daughter Housing: Apartment Do you presently have visiting nurse or other home services: Yes Unable to assess alcohol history related to: Unknown Alcohol intake: never Comment: 254 Patient Tobacco Use Status: Former Tobacco user Quit Date: February 2022 Tobacco use type: Cigarette Cigarettes Per Day: 1 Years Smoked: 35 Smoked in Last 30 Days: No e-Cigarette/Vaping Use: Currently Using Second Hand Smoke Exposure: No Use of substances other than those prescribed or required for medical reasons: No Substance Use Type: Opiates Advance Directives: Yes Advance Directives on File: Yes Advance Directives Date on File: 06/12/21 Do you have a plan to hurt others: No Plan Nutrition Risks: No Nutritional Risk service: No Current occupational status: unemployed and disabled Physical Exam 2 Vital Signs: Vital Signs: Last Vital Signs Temp 98.3 F 08/02/23 19:12 Pulse 106 H 08/02/23 22:28 Resp 22 H 08/02/23 23:38 BP 143/74 H 08/02/23 22:28 Pulse Ox 94 08/02/23 22:28 O2 Del Method Nasal Cannula 08/02/23 22:28 O2 Flow Rate 2 08/02/23 22:28 BMI result Body Mass Index 39.0 Medications Administered Generic Name Dose Route Start Last Admin Trade Name Freq PRN Reason Stop Dose Admin Insulin Human Lispro 0 unit 08/02/23 21:10 08/02/23 21:35 Insulin Lispro 100 Unit/Ml 3 Ml Vial SUBCUT 12 unit QIDACHS ANA Administration Protocol Discontinued Medications Generic Name Dose Route Start Last Admin Trade Name Freq PRN Reason Stop Dose Admin Albuterol Sulfate 2.5 mg 08/02/23 20:57 08/02/23 21:55 Albuterol Sulfate (0.083%) 2.5 Mg/3 Ml Vial.Neb INHALE 08/02/23 20:58 2.5 mg ONCE STA Administration Budesonide 0.5 mg 08/02/23 20:57 08/02/23 21:55 Budesonide 0.5 Mg/2 Ml Ampul.Neb INHALE 08/02/23 20:58 0.5 mg ONCE STA Administration Albuterol Sulfate 7.5 mg/ 0 mg 08/02/23 16:19 08/02/23 16:53 Albuterol/Ipratropium 3 ml INHALE 08/02/23 16:20 1 each ONCE ONE Administration Ceftriaxone Sodium 1 gm/ 50 mls @ 100 mls/hr 08/02/23 16:19 08/02/23 17:26 Sodium Chloride IV 08/02/23 16:48 Infused ONCE ONE Infusion Insulin Glargine 45 unit 08/02/23 21:10 08/02/23 21:35 Insulin Glargine,Hum.Rec.Anlog 100 Unit/Ml 10 Ml Vial SUBCUT 08/02/23 21:11 45 unit ONCE STA Administration Methylprednisolone Sodium Succinate 125 mg 08/02/23 16:19 08/02/23 16:29 Methylprednisolone Sod Succ 125 Mg/2 Ml Vial IVPUSH 08/02/23 16:20 125 mg ONCE ONE Administration Montelukast Sodium 10 mg 08/02/23 21:58 08/02/23 22:26 Montelukast Sodium 10 Mg Tablet PO 08/02/23 21:59 10 mg ONCE ONE Administration Medical Decision Making Medical Decision Making [facility] Narrative: Patient with obesity hypoventilation syndrome chronic respiratory failure with hypercapnia came for increased somnolence with respiratory acidosis responded to CPAP patient became more alert and awake pCO2 improved from 76-71 PH stayed 7.29 but patient alert moderate to go home , will admit patient for COPD exacerbation with acute on chronic respiratory failure Differential Diagnosis Differential Diagnoses: The differential diagnosis associated with the presentation includes CO2 narcosis Admission/Observation Consideration of admission/observation: Escalation of care including admission/observation considered Consult Healthcare Provider Management of the patient was discussed with: Hospitalist Lab Data [facility] Lab Attestation statement: I reviewed the patient's lab results. 08/02/23 14:29 08/02/23 13:45 Labs: Lab Results 08/02/23 08/02/23 08/02/23 Range/Units 13:45 14:29 14:32 WBC 10.1 (4.8-10.8) X10*3/uL RBC 3.65 L D (4.20-5.50) X10*6/uL Hgb 11.2 L (12.0-16.0) g/dl Hct 35.7 L (37.0-47.0) % MCV 97.8 (80.0-98.0) fL MCH 30.7 (27.0-33.0) pg MCHC 31.4 (31.0-35.0) g/dl RDW 14.8 (11.0-16.0) % Plt Count 197 D (160-400) X10*3/uL MPV 8.8 L (9.4-12.3) fL Immature Gran % (Auto) 1.3 H (0.0-0.4) % Neut % (Auto) 93.0 H (45-73) % Lymph % (Auto) 2.3 L (20-40) % [place] % (Auto) 2.8 (2-11) % Eos % (Auto) 0.3 (0-4) % Baso % (Auto) 0.3 (0-2) % Lymph # (Auto) 0.2 L (1.2-4.9) X10*3/uL [place] # (Auto) 0.3 (0.1-1.2) X10*3/uL Eos # (Auto) 0.0 (0.0-0.4) X10*3/uL Baso # (Auto) 0.0 (0.0-0.2) X10*3/uL Abs Immat Gran (auto) 0.13 H (0.00-0.03) X10*3/uL Absolute Neuts (auto) 9.4 H (2.0-8.3) x10*3/uL Absolute Nucleated RBC 0.000 (0.0-0.012) X10*3/uL Nucleated RBC % (auto) 0.0 (0.0-0.2) /100WBC Smear Tech's Comments VERIFIED VBG pH 7.29 L (7.32-7.43) VBG pCO2 76 mmHg VBG pO2 88 mmHg VBG HCO3 36 H (22-26) mmol/L VBG O2 Saturation 99.0 % VBG Base Excess 7.6 mmol/L Sodium 137 (135-145) mmol/L Potassium 4.5 D (3.3-5.1) mmol/L Chloride 97 (96-108) mmol/L Carbon Dioxide 29 (22-29) mmol/L Anion Gap 16 (12-20) BUN 18 H (9-16) mg/dL Creatinine 0.65 (0.5-1.4) mg/dL Estim Creat Clear Calc 100.4 Estimated GFR > 60 Random Glucose 309 H (60-115) mg/dL Lactic Acid 1.2 (0.5-2.0) mmol/L Calcium 8.8 D (8.4-10.2) mg/dL Magnesium 1.6 (1.6-2.6) mg/dL Total Bilirubin 0.3 (0.0-1.0) mg/dL AST 36 H (5-31) U/L ALT 45 H (0-31) U/L Alkaline Phosphatase 61 (39-117) U/L Troponin I High Sens 8.7 D (<3.5-17.0) ng/L Total Protein 6.9 (6.5-8.0) g/dL Albumin 3.8 (3.5-5.0) g/dL Urine Color Urine Appearance Urine pH (5.0-9.0) Ur Specific [place] (1.005-1.025) Urine Protein (Neg-Trace) mg/dL Urine Glucose (UA) (Negative) mg/dL Urine Ketones (Negative) mg/dL Urine Blood (Negative) Urine Nitrite (Negative) Ur Leukocyte Esterase (Negative) Urine RBC (0-2) /HPF Urine WBC (0-5) /HPF Ur Squamous Epith Cells (0-2) /HPF Urine Bacteria (None Seen) Hyaline Casts (0-2) /LPF Urine Opiates Screen (Not Detect) Ur Buprenorphine Scrn (Not Detect) ng/mL Ur Oxycodone Screen (Not Detect) ng/mL Urine Methadone Screen (Not Detect) ng/mL Urine Fentanyl Screen (Not Detect) Ur Barbiturates Screen (Not Detect) Ur Phencyclidine Scrn (Not Detect) Ur Amphetamines Screen (Not Detect) U Benzodiazepines Scrn (Not Detect) Urine Cocaine Screen (Not Detect) U Marijuana (THC) Screen (Not Detect) Influenza Type A (PCR) (Negative) Influenza Type B (PCR) (Negative) RSV RNA Qual (PCR) (Negative) SARS-CoV-2 RNA (RT-PCR) (Negative) 08/02/23 08/02/23 Range/Units 18:50 19:42 WBC (4.8-10.8) X10*3/uL RBC (4.20-5.50) X10*6/uL Hgb (12.0-16.0) g/dl Hct (37.0-47.0) % MCV (80.0-98.0) fL MCH (27.0-33.0) pg MCHC (31.0-35.0) g/dl RDW (11.0-16.0) % Plt Count (160-400) X10*3/uL MPV (9.4-12.3) fL Immature Gran % (Auto) (0.0-0.4) % Neut % (Auto) (45-73) % Lymph % (Auto) (20-40) % [place] % (Auto) (2-11) % Eos % (Auto) (0-4) % Baso % (Auto) (0-2) % Lymph # (Auto) (1.2-4.9) X10*3/uL [place] # (Auto) (0.1-1.2) X10*3/uL Eos # (Auto) (0.0-0.4) X10*3/uL Baso # (Auto) (0.0-0.2) X10*3/uL Abs Immat Gran (auto) (0.00-0.03) X10*3/uL Absolute Neuts (auto) (2.0-8.3) x10*3/uL Absolute Nucleated RBC (0.0-0.012) X10*3/uL Nucleated RBC % (auto) (0.0-0.2) /100WBC Smear Tech's Comments VBG pH 7.29 L (7.32-7.43) VBG pCO2 71 mmHg VBG pO2 102 mmHg VBG HCO3 35 H (22-26) mmol/L VBG O2 Saturation 100.0 % VBG Base Excess 6.5 mmol/L Sodium (135-145) mmol/L Potassium (3.3-5.1) mmol/L Chloride (96-108) mmol/L Carbon Dioxide (22-29) mmol/L Anion Gap (12-20) BUN (9-16) mg/dL Creatinine (0.5-1.4) mg/dL Estim Creat Clear Calc Estimated GFR Random Glucose (60-115) mg/dL Lactic Acid (0.5-2.0) mmol/L Calcium (8.4-10.2) mg/dL Magnesium (1.6-2.6) mg/dL Total Bilirubin (0.0-1.0) mg/dL AST (5-31) U/L ALT (0-31) U/L Alkaline Phosphatase (39-117) U/L Troponin I High Sens (<3.5-17.0) ng/L Total Protein (6.5-8.0) g/dL Albumin (3.5-5.0) g/dL Urine Color Yellow Urine Appearance Clear Urine pH 6.0 (5.0-9.0) Ur Specific [place] 1.020 (1.005-1.025) Urine Protein Negative (Neg-Trace) mg/dL Urine Glucose (UA) >=1000 H (Negative) mg/dL Urine Ketones Negative (Negative) mg/dL Urine Blood Negative (Negative) Urine Nitrite Negative (Negative) Ur Leukocyte Esterase Negative (Negative) Urine RBC 0-2 (0-2) /HPF Urine WBC 0-5 (0-5) /HPF Ur Squamous Epith Cells 3-5 (0-2) /HPF Urine Bacteria None Seen (None Seen) Hyaline Casts 0-2 (0-2) /LPF Urine Opiates Screen Not Detected (Not Detect) Ur Buprenorphine Scrn Not Detected (Not Detect) ng/mL Ur Oxycodone Screen Not Detected (Not Detect) ng/mL Urine Methadone Screen Positive H (Not Detect) ng/mL Urine Fentanyl Screen Not Detected (Not Detect) Ur Barbiturates Screen Not Detected (Not Detect) Ur Phencyclidine Scrn Not Detected (Not Detect) Ur Amphetamines Screen Not Detected (Not Detect) U Benzodiazepines Scrn Not Detected (Not Detect) Urine Cocaine Screen Not Detected (Not Detect) U Marijuana (THC) Screen Not Detected (Not Detect) Influenza Type A (PCR) NEGATIVE (Negative) Influenza Type B (PCR) NEGATIVE (Negative) RSV RNA Qual (PCR) NEGATIVE (Negative) SARS-CoV-2 RNA (RT-PCR) NEGATIVE (Negative) Independent Interpretation I performed an independent interpretation of an: EKG Interpretation: Sinus tachycardia incomplete right bundle-branch block LVH no acute STT wave changes no acute ischemia Critical Care Time Critical Care Time Critical Care Time: Yes Total Critical Care Time: 65 Attestation: The patient was critically ill with a high probability of imminent or life threatening deterioration. I spent greater than 70??minutes of discontinuous time evaluating the patient,delivering critical care at the bedside, discussing and evaluating pertinent data with consultants. Critical care time does not include time spent performing separately billable procedures or teaching. Total time spent performing critical care was 65???minutes. Discharge Plan Discharge Clinical Impression: Acute on chronic respiratory failure with hypoxia and hypercapnia, CHITO (obstructive sleep apnea), Acute exacerbation of chronic obstructive airways disease Obesity with alveolar hypoventilation Qualifiers: Obesity classification: adult class 2 (BMI 35 - 39.9) Serious obesity comorbidity presence: with serious comorbidity Body mass index: BMI 39.0-39.9 Q ualified Code(s): E66.2 - Morbid (severe) obesity with alveolar hypoventilation Patient Disposition: Admitted As Inpatient
[2023-08-02] MEDS: cefTRIAXone sodium 1 GM in 0.9 % Sodium Chloride 50 ML IV (16:29)
[2023-08-02] MEDS: methylPREDNISolone Sod Succ 125 MG/2 ML VIAL IVPUSH (16:29)
[2023-08-02] MEDS: Albuterol Sulfate 7.5 MG, Albuterol/Iprat 2.5/0.5MG 3 ML 3 ML INHALE (16:53)
--- NOTE | 2023-08-02 17:06 | PC.NURSE ---
Spoke to HCP/Daughter regarding patient's status, requested phone call if any changes.
--- NOTE | 2023-08-02 18:59 | PC.NURSE ---
Patient 1A/SB to commode on 2L desat to 86 with good pleth, recovered to 91 - 92% once resting on stretcher.
[2023-08-02 19:00] LABS: Appearance Urine Clear; Color Urine Yellow; Glucose Urine UA >=1000 mg/dL (Negative); Leukocyte Esterase Urine Negative (Negative); Nitrite Urine Negative (Negative); UMIC TRIGGER UACC YES; Urine Blood Negative (Negative); Urine Ketones Negative (Negative); Urine Protein Negative (Neg-Trace)
[2023-08-02 19:18] LABS: Bacteria Urine None Seen (None Seen); Hyaline Casts Urine 0-2 /LPF (0-2); RBC Urine 0-2 /HPF (0-2); WBC Urine 0-5 /HPF (0-5)
[2023-08-02 19:19] LABS: Amphetamine Screen Urine Not Detected (Not Detect); Barbiturates, Urine Not Detected (Not Detect); Benzodiazepines Screen Urine Not Detected (Not Detect); Buprenorphine Scr Not Detected (Not Detect); Cannabinoid Screen Urine Not Detected (Not Detect); Cocaine Screen Urine Not Detected (Not Detect); Fentanyl, urine Not Detected (Not Detect); Methadone Screen, Urine Positive (Not Detect); Opiate Screen Urine Not Detected (Not Detect); Oxycodone Screen Urine Not Detected (Not Detect); Phencyclidine Screen Urine Not Detected (Not Detect)
[2023-08-02 19:46] LABS: Influenza A PCR NEGATIVE (Negative); Influenza B PCR NEGATIVE (Negative); Resp Syncy Virus RNA Qual PCR NEGATIVE (Negative); SARS COV2 PCR INHOUSE NEGATIVE (Negative)
[2023-08-02 19:50] LABS: Venous Blood Gas Refer to POC result
[2023-08-02 19:50] LABS: VBG Base Excess 6.5 mmol/L; VBG HCO3 35 mmol/L (22-26); VBG pCO2 71 mmHg; VBG pH 7.29 (7.32-7.43); VBG pO2 102 mmHg
[2023-08-02 21:21] LABS: Glucose, Whole Blood 403 mg/dL (60-115)
--- NOTE | 2023-08-02 21:29 | P.HPHOSP_ITS ---
History of Present Illness Date of Service: 08/02/23 Attending physician on admission: Rhina Plasencia Chief Complaint: Shortness of breath Anju Larios is a 53 years old woman with past medical history significant for chronic hypoxic and hypercapnic respiratory failure/COPD -on home oxygen 2L/min and prednisone, HFpEF, morbid obesity, obstructive sleep apnea on BiPAP, type 2 diabetes mellitus, essential hypertension, chronic pain on methadone and hyperlipidemia presents to the emergency department complaining of worsening shortness of breath since yesterday associated with wheezing and mild cough. Did not report fever, chills, chest pain, headache or palpitations. Denied any acute gastrointestinal genitourinary symptoms. Did not report any She quit tobacco smoking couple of months ago. Denied alcohol abuse or illicit drug use. In the ED, she was found to have tachycardia and tachypnea. She was started on BiPAP and off it for the last several hours. Currently on 2 L/min supplemental oxygen via nasal cannula which is her baseline. Blood workup showed no leukocytosis, bandemia or lactic acidosis. There are no electrolyte imbalances. Renal function is adequate. Glucose is 403. Transaminases are slightly elevated. Bilirubin and alk-phos are normal. CXR is negative. ECG showed sinus tachycardia with right bundle branch block, LVH changes and nonspecific ST or T-wave changes. ED tx: Ceftriaxone 1 g IV, albuterol 3 mL, Solu-Medrol 125 mg IV. Review of Systems 2 Review of Systems: All 12 systems were reviewed and normal except as noted in HPI. [facility] Medical History (Updated 08/02/23 @ 22:06 by Rhina Plasencia MD) Asthma CHITO (obstructive sleep apnea) Type 2 diabetes mellitus Opioid dependence Constipation Salmonella gastroenteritis Obesity with alveolar hypoventilation Congestive heart failure Chronic constipation Acute respiratory failure Hypertensive cardiovascular disease Pulmonary nodule Chronic respiratory failure Tobacco abuse Asthma-COPD overlap syndrome Hyperlipidemia, unspecified Essential hypertension Chronic respiratory failure Family History Father Diabetes Other Asthma Surgical History H/O tubal ligation Social History Household Members: Children Household Members Other:: daughter Housing: Apartment Do you presently have visiting nurse or other home services: Yes Unable to assess alcohol history related to: Unknown Alcohol intake: never Comment: 254 Patient Tobacco Use Status: Former Tobacco user Quit Date: February 2022 Tobacco use type: Cigarette Cigarettes Per Day: 1 Years Smoked: 35 Smoked in Last 30 Days: No e-Cigarette/Vaping Use: Currently Using Second Hand Smoke Exposure: No Use of substances other than those prescribed or required for medical reasons: No Substance Use Type: Opiates Advance Directives: Yes Advance Directives on File: Yes Advance Directives Date on File: 06/12/21 Do you have a plan to hurt others: No Plan service: No Current occupational status: unemployed and disabled Meds Allergies Allergy/AdvReac Type Severity Reaction Status Date / Time No Known Allergies Allergy Verified 08/02/23 13:35 [No Known Allergies*] Active Medications: Current Medications Acetaminophen (Acetaminophen 325 Mg Tablet) 975 mg PO Q6H PRN PRN Reason: Pain, Mild (Pain Scale 1-3) Acetaminophen (Acetaminophen Supp 325 Mg Supp.Rect) 975 mg OK Q6H PRN PRN Reason: mild pain, headache or fever Albuterol Sulfate (Albuterol Sulfate (0.083%) 2.5 Mg/3 Ml Vial.Neb) 2.5 mg INHALE Q2H PRN PRN Reason: Shortness of Breath/Wheezing Albuterol/Ipratropium (Albuterol/Iprat 2.5/0.5mg 3 Ml Ampul.Neb) 3 ml INHALE RQ4H WHILE AWAKE [facility] Glucose (Glucose Gel 15 Gm Gel..Gram.) 15 gm PO Q15M PRN; Protocol PRN Reason: per Hypoglycemia Standing Ord. Heparin Sodium (Porcine) (Heparin Sodium,Porcine 5,000 Unit/Ml Vial) 5,000 unit SUBCUT Q8H [facility] Dextrose (D10) 250 mls @ 750 mls/hr IV Q15M PRN; Protocol PRN Reason: per Hypoglycemia Standing Ord. Insulin Human Lispro (Insulin Lispro 100 Unit/Ml 3 Ml Vial) 0 unit SUBCUT QIDACHS [facility]; Protocol Methylprednisolone Sodium Succinate (Methylprednisolone Sod Succ 40 Mg/Ml Vial) 40 mg IVPUSH Q12H [facility] Ondansetron HCl (Ondansetron Hcl 4 Mg/2 Ml Vial) 4 mg IVPUSH Q8H PRN PRN Reason: Nausea and Vomiting Sodium Chloride (0.9 % Sodium Chloride Flush 3 Ml Syringe) 3 ml IVFLUSH [facility] Home Medications ?Medication ?Instructions ?Recorded ?Confirmed ?Last Taken ?Type loratadine 10 mg tablet (Claritin) 10 mg PO DAILY 12/30/19 07/16/23 05/18/23 History montelukast 10 mg tablet 10 mg PO BEDTIME 12/30/19 07/16/23 05/18/23 History diltiazem HCl 360 mg capsule,24 360 mg PO DAILY 11/16/20 07/16/23 05/18/23 History hr,extended release (Tiadylt ER) roflumilast 500 mcg tablet 500 mcg PO DAILY 11/16/20 07/16/23 05/18/23 History (Daliresp) rosuvastatin 5 mg tablet 5 mg PO BEDTIME 11/16/20 07/16/23 05/18/23 History metformin 500 mg tablet,extended 500 mg PO DAILY 05/18/21 07/16/23 05/18/23 History release 24 hr methadone 10 mg/mL oral concentrate 50 mg PO DAILY 06/06/21 07/16/23 07/09/23 History hydralazine 25 mg tablet 25 mg PO TIDWM 11/02/21 07/16/23 05/18/23 History insulin lispro 100 unit/mL 4 unit subcut TIDAC PRN 11/02/21 07/16/23 05/18/23 History subcutaneous solution Hyperglycemia clonazepam 1 mg tablet 1 mg PO BID PRN Anxiety 06/28/22 07/16/23 Unknown History lamotrigine 150 mg tablet 150 mg PO BID 07/29/22 07/16/23 05/18/23 History calcitonin (salmon) 200 1 spray intranasal DAILY 09/30/22 07/16/23 05/18/23 History unit/actuation nasal spray insulin glargine 100 unit/mL 45 unit subcut BEDTIME 09/30/22 07/16/23 05/18/23 History subcutaneous solution (Lantus U-100 Insulin) docusate sodium 100 mg capsule 100 mg PO BID PRN constipation 10/20/22 07/16/23 Unknown History nebulizers 11/08/22 07/16/23 02/02/23 09:00 History polyethylene glycol 3350 17 17 g PO DAILY constipation 12/21/22 07/16/23 02/20/23 History gram/dose oral powder (Miralax) ammonium lactate 12 % lotion 1 appl topical DAILY Rash 02/02/23 07/16/23 05/18/23 History diclofenac sodium 1 % topical gel 4 g topical QID PRN Pain 05/04/23 07/16/23 Unknown History zolpidem 5 mg tablet 5 mg PO BEDTIME PRN Sleep 05/04/23 07/16/23 Unknown History cholecalciferol (vitamin D3) 1,250 1,250 mcg PO MOTH 05/19/23 07/16/23 Unknown History mcg (50,000 unit) capsule lidocaine 5 % topical patch 1 patch topical QAM PRN Pain 05/19/23 07/16/23 Unknown History azathioprine 50 mg tablet 100 mg PO DAILY 06/24/23 07/16/23 Unknown History prednisone 10 mg tablet See Taper PO DIRECTED 07/16/23 07/16/23 Unknown History Physical Exam 2 Vital Signs and Narrative: Vital Signs: Last Vital Signs Temp 98.3 F 08/02/23 19:12 Pulse 112 H 08/02/23 19:12 Resp 18 08/02/23 19:12 BP 111/75 08/02/23 19:12 Pulse Ox 95 08/02/23 16:06 O2 Del Method Nasal Cannula 08/02/23 19:12 O2 Flow Rate 2 08/02/23 19:12 BMI result Body Mass Index 39.0 Constitutional - Awake and Alert, No apparent distress. Obese. Nasal cannula in place. Deep voice. HEENT - Pupils equally round. Normal sclera. Heart - Tachycardia. Lungs - Normal lung expansion, Normal respiratory effort, No respiratory distress. Tachypneic. Bilateral end-expiratory wheezes. Abdomen - NT / ND; +BS; No rebound or guarding - No CVA tenderness Extremities - no calf tenderness bilaterally, no swelling Musculoskeletal - Normal inspection, normal ROM Skin - Warm/Dry Neurological - Alert & oriented x3. Moving all extremities. Normal speech. Psychological - Depressed affect affect Results Labs 08/02/23 14:29 08/02/23 13:45 Labs: Laboratory Results - last 24 hr 08/02/23 08/02/23 08/02/23 13:45 14:29 14:32 MCV 97.8 MCH 30.7 MCHC 31.4 RDW 14.8 Plt Count 197 D MPV 8.8 L Immature Gran % (Auto) 1.3 H Neut % (Auto) 93.0 H Lymph % (Auto) 2.3 L Harvey % (Auto) 2.8 Eos % (Auto) 0.3 Baso % (Auto) 0.3 Lymph # (Auto) 0.2 L Harvey # (Auto) 0.3 Eos # (Auto) 0.0 Baso # (Auto) 0.0 Abs Immat Gran (auto) 0.13 H Absolute Neuts (auto) 9.4 H Absolute Nucleated RBC 0.000 Nucleated RBC % (auto) 0.0 Smear Tech's Comments VERIFIED VBG pH 7.29 L VBG pCO2 76 VBG pO2 88 VBG HCO3 36 H VBG O2 Saturation 99.0 VBG Base Excess 7.6 Anion Gap 16 Estim Creat Clear Calc 100.4 Estimated GFR > 60 POC Glucose Random Glucose 309 H Lactic Acid 1.2 Calcium 8.8 D Magnesium 1.6 Total Bilirubin 0.3 AST 36 H ALT 45 H Alkaline Phosphatase 61 Troponin I High Sens 8.7 D Total Protein 6.9 Albumin 3.8 Urine Color Urine Appearance Urine pH Ur Specific [place] Urine Protein Urine Glucose (UA) Urine Ketones Urine Blood Urine Nitrite Ur Leukocyte Esterase Urine RBC Urine WBC Ur Squamous Epith Cells Urine Bacteria Hyaline Casts Urine Opiates Screen Ur Buprenorphine Scrn Ur Oxycodone Screen Urine Methadone Screen Urine Fentanyl Screen Ur Barbiturates Screen Ur Phencyclidine Scrn Ur Amphetamines Screen U Benzodiazepines Scrn Urine Cocaine Screen U Marijuana (THC) Screen Influenza Type A (PCR) Influenza Type B (PCR) RSV RNA Qual (PCR) SARS-CoV-2 RNA (RT-PCR) 08/02/23 08/02/23 08/02/23 18:50 19:42 21:18 MCV MCH MCHC RDW Plt Count MPV Immature Gran % (Auto) Neut % (Auto) Lymph % (Auto) Harvey % (Auto) Eos % (Auto) Baso % (Auto) Lymph # (Auto) Harvey # (Auto) Eos # (Auto) Baso # (Auto) Abs Immat Gran (auto) Absolute Neuts (auto) Absolute Nucleated RBC Nucleated RBC % (auto) Smear Tech's Comments VBG pH 7.29 L VBG pCO2 71 VBG pO2 102 VBG HCO3 35 H VBG O2 Saturation 100.0 VBG Base Excess 6.5 Anion Gap Estim Creat Clear Calc Estimated GFR POC Glucose 403 H* Random Glucose Lactic Acid Calcium Magnesium Total Bilirubin AST ALT Alkaline Phosphatase Troponin I High Sens Total Protein Albumin Urine Color Yellow Urine Appearance Clear Urine pH 6.0 Ur Specific [place] 1.020 Urine Protein Negative Urine Glucose (UA) >=1000 H Urine Ketones Negative Urine Blood Negative Urine Nitrite Negative Ur Leukocyte Esterase Negative Urine RBC 0-2 Urine WBC 0-5 Ur Squamous Epith Cells 3-5 Urine Bacteria None Seen Hyaline Casts 0-2 Urine Opiates Screen Not Detected Ur Buprenorphine Scrn Not Detected Ur Oxycodone Screen Not Detected Urine Methadone Screen Positive H Urine Fentanyl Screen Not Detected Ur Barbiturates Screen Not Detected Ur Phencyclidine Scrn Not Detected Ur Amphetamines Screen Not Detected U Benzodiazepines Scrn Not Detected Urine Cocaine Screen Not Detected U Marijuana (THC) Screen Not Detected Influenza Type A (PCR) NEGATIVE Influenza Type B (PCR) NEGATIVE RSV RNA Qual (PCR) NEGATIVE SARS-CoV-2 RNA (RT-PCR) NEGATIVE Imaging Radiologist's Impressions: Impressions Chest X-Ray 08/02/23 14:14 IMPRESSION: No acute cardiopulmonary findings. Assessment and Plan (1) Acute on chronic respiratory failure with hypoxia and hypercapnia: Status: Acute (2) Obesity with alveolar hypoventilation: Qualifiers: Obesity classification: adult class 2 (BMI 35 - 39.9) Serious obesity comorbidity presence: with serious comorbidity Body mass index: BMI 39.0-39.9 Qualified Code(s): E66.2 - Morbid (severe) obesity with alveolar hypoventilation; Z68.39 - Body mass index [BMI] 39.0-39.9, adult Status: Acute (3) Obesity hypoventilation syndrome: Status: Acute Plan Anju Larios is a 53 years old woman admitted with: * Acute on chronic hypercapnic and hypoxic respiratory failure + obstructive sleep apnea + obesity hypoventilatory syndrome. Admit to hospitalist service. Telemetry. Pulse oximetry. Continue supplemental O2 via NC to keep O2 sats > 90%. Nocturnal BiPAP. Start bronchodilator therapy and IV steroids. Continue montelukast and Daliresp. Avoid sedative. Pulmonology consult for further recommendations. * Essential hypertension. Continue diltiazem and hydralazine. * GERD. Continue PPI. * HFpEF. CXR neg. Continue Lasix. * Hyperlipidemia. Continue statin. * Mental health. On hold to avoid sedation. * Type 2 diabetes mellitus. Blood glucose monitoring before meals and bedtime. Continue Lantus and metformin. Insulin sliding scale. Diabetic diet. * Morbid obesity, BMI 39.1 kg/m2. Weight loss. * Chronic opiate dependence. Continue methadone when confirmed. DVT prophylaxis: Heparin Code status: Full Patient will need hospitalization for at least 2 midnights for respiratory failure treatment with supplemental oxygen, respiratory support with BiPAP, close monitoring of vital signs and evaluation by subspecialty. Quality Stroke Does the patient have a stroke diagnosis?: No VTE Prior VTE?: No VTE Risk Level:: Medical - moderate - high VTE Device Contraindication: Treatment Not Indicated VTE Drug Contraindication: N/A - Med Ordered
[2023-08-02] MEDS: Insulin Lispro 100 UNIT/ML 3 ML VIAL SUBCUT (21:35)
[2023-08-02] MEDS: Insulin Glargine,Hum.rec.anlog 100 UNIT/ML 10 ML VIAL 45 UNIT SUBCUT (21:35)
--- NOTE | 2023-08-02 21:37 | PC.NURSE ---
Patient's HS POC 403, admitting provider made aware, Insulin give per MAY, recheck POC in 2 hours. Patient sitting on side of bed eating sandwich, talking on facetime no acute distress at this time.
[2023-08-02] MEDS: Albuterol Sulfate (0.083%) 2.5 MG/3 ML VIAL.NEB INHALE (21:55)
[2023-08-02] MEDS: Budesonide 0.5 MG/2 ML AMPUL.NEB INHALE (21:55)
[2023-08-02] MEDS: Montelukast Sodium 10 MG TABLET PO (22:26)
[2023-08-03] VITALS (15 sets, daily range): BP systolic 132–181; BP diastolic 69–87; PULSE 88–114; RESP 16–24; TEMP 36–36.8; O2SAT 90–99; BMI 38.1
[2023-08-03] MEDS: 0.9 % Sodium Chloride Flush 3 ML SYRINGE IVFLUSH ×4 (01:07→21:32)
--- NOTE | 2023-08-03 01:09 | MHC.EDTECH ---
Late Entry,This tech took varnish remover care of patient at 2300,hourly rounds and vitals completed. call lu in reach
[2023-08-03 02:43] LABS: Glucose, Whole Blood 289 mg/dL (60-115)
--- NOTE | 2023-08-03 03:15 | PC.NURSE ---
Assumed care of pt.
--- NOTE | 2023-08-03 03:30 | MHC.EDTECH ---
Addendum entered by Liliya Long 08/03/23 03:57: Patient had a large BM,brown and semi formed. Original Note: Patient got up to commode with minimal assist,patient urinated a moderate amount.
[2023-08-03] MEDS: Albuterol Sulfate (0.083%) 2.5 MG/3 ML VIAL.NEB INHALE (05:13)
--- NOTE | 2023-08-03 07:31 | PHA.MEDREC ---
Pharmacy Consult ? Medication Reconciliation Pharmacy has completed the medication reconciliation. Patient recently discharged on 07/26/23. Utilized discharge summary and Office Visit report from Dr. Brito.
[2023-08-03 07:48] LABS: Glucose, Whole Blood 247 mg/dL (60-115)
[2023-08-03] MEDS: Albuterol/Iprat 2.5/0.5MG 3 ML AMPUL.NEB INHALE ×4 (07:51→19:30)
[2023-08-03 08:06] LABS: Basophils Percent Auto 0.1 % (0-2); Hematocrit 33.7 % (37.0-47.0); Hemoglobin 10.5 g/dl (12.0-16.0); Imm Gran Pct Auto 1.2 % (0.0-0.4); Lymphocytes Absolute Auto 0.2 X10*3/uL (1.2-4.9); Lymphocytes Percent Auto 2.7 % (20-40); MANUAL DIFF FLAG SCAN; Mean Corpuscular HGB Conc 31.2 g/dl (31.0-35.0); Mean Corpuscular Hemoglobin 29.9 pg (27.0-33.0); Monocytes Absolute Auto 0.2 X10*3/uL (0.1-1.2); Monocytes Percent Auto 2.8 % (2-11); NRBC Pct Auto 0.2 /100WBC (0.0-0.2); Neutrophils Absolute Auto 7.6 x10*3/uL (2.0-8.3); Neutrophils Percent Auto 93.2 % (45-73); Platelet Count 201 X10*3/uL (160-400); Red Blood Count 3.51 X10*6/uL (4.20-5.50); Red Cell Distribution Width 14.6 % (11.0-16.0); SCAN SMEAR FLAG 1; White Blood Count 8.2 X10*3/uL (4.8-10.8)
[2023-08-03 08:29] LABS: SLIDE REVIEW VERIFIED
[2023-08-03 08:33] LABS: Alanine Aminotransferase 37 U/L (0-31); Albumin Level 3.7 g/dL (3.5-5.0); Alkaline Phosphatase 62 U/L (39-117); Anion Gap 14 (12-20); Aspartate Amino Transferase 16 U/L (5-31); Bilirubin Total 0.2 mg/dL (0.0-1.0); Blood Urea Nitrogen 24 mg/dL (9-16); Calcium 9.7 mg/dL (8.4-10.2); Carbon Dioxide 33 mmol/L (22-29); Chloride 97 mmol/L (96-108); Creatinine Clr Calc Pharmacy 100.6; Estimated Glomerular Filt Rate > 60; Glucose Random 297 mg/dL (60-115); Potassium 3.7 mmol/L (3.3-5.1); Sodium 140 mmol/L (135-145); Total Protein 6.2 g/dL (6.5-8.0)
[2023-08-03] MEDS: Insulin Lispro 100 UNIT/ML 3 ML VIAL SUBCUT ×4 (08:59→21:32)
[2023-08-03] MEDS: Heparin Sodium,Porcine 5,000 UNIT/ML VIAL 5000 UNIT SUBCUT ×2 (09:00→16:32)
[2023-08-03] MEDS: methylPREDNISolone Sod Succ 40 MG/ML VIAL IVPUSH ×2 (09:00→21:31)
--- NOTE | 2023-08-03 09:03 | P.PNIM_ITS ---
Subjective Subjective Date of Service: 08/03/23 Interval History: Seen in f/u for acute on chronic hypoxic respiratory failure d/t copd exacerbation interval history: She is overall doing surprisingly better today, she is awake and not in resp distress. She is asking for methadone, they are not able to check with methadone. Physical Exam 2 Vital Signs: Vital Signs: Last Vital Signs Temp 96.9 F 08/03/23 08:06 Pulse 96 08/03/23 08:06 Resp 20 08/03/23 08:06 BP 148/69 H 08/03/23 08:06 Pulse Ox 94 08/03/23 08:06 O2 Del Method Nasal Cannula 08/03/23 08:06 O2 Flow Rate 2 08/03/23 08:06 BMI result Body Mass Index 38.1 Const: Other: General: AO X 3, no acute distress Resp: No wheezes, no accessory muscle use, diminished CVS: S1,S2,RRR GI: +BS, NT, no distention Skin: No rash Neuro: motor grossly intact Psych: appropriate affect Objective Data Active Medications Acetaminophen (Acetaminophen 325 Mg Tablet) 975 mg PO Q6H PRN PRN Reason: Pain, Mild (Pain Scale 1-3) Acetaminophen (Acetaminophen Supp 325 Mg Supp.Rect) 975 mg CA Q6H PRN PRN Reason: mild pain, headache or fever Albuterol Sulfate (Albuterol Sulfate (0.083%) 2.5 Mg/3 Ml Vial.Neb) 2.5 mg INHALE Q2H PRN PRN Reason: Shortness of Breath/Wheezing Last Admin: 08/03/23 05:13 Dose: 2.5 mg Documented By: MARYSOL Albuterol/Ipratropium (Albuterol/Iprat 2.5/0.5mg 3 Ml Ampul.Neb) 3 ml INHALE RQ4H WHILE AWAKE [facility] Last Admin: 08/03/23 07:51 Dose: 3 ml Documented By: LIBAN Glucose (Glucose Gel 15 Gm Gel..Gram.) 15 gm PO Q15M PRN; Protocol PRN Reason: per Hypoglycemia Standing Ord. Heparin Sodium (Porcine) (Heparin Sodium,Porcine 5,000 Unit/Ml Vial) 5,000 unit SUBCUT Q8H [facility] Dextrose (D10) 250 mls @ 750 mls/hr IV Q15M PRN; Protocol PRN Reason: per Hypoglycemia Standing Ord. Insulin Human Lispro (Insulin Lispro 100 Unit/Ml 3 Ml Vial) 0 unit SUBCUT QIDACHS [facility]; Protocol Last Admin: 08/02/23 21:35 Dose: 12 unit Documented By: DITOLC Methylprednisolone Sodium Succinate (Methylprednisolone Sod Succ 40 Mg/Ml Vial) 40 mg IVPUSH Q12H ANA Ondansetron HCl (Ondansetron Hcl 4 Mg/2 Ml Vial) 4 mg IVPUSH Q8H PRN PRN Reason: Nausea and Vomiting Sodium Chloride (0.9 % Sodium Chloride Flush 3 Ml Syringe) 3 ml IVFLUSH QSHIFT [facility] Last Admin: 08/03/23 01:07 Dose: 3 ml Documented By: MANI Labs 08/03/23 07:49 08/03/23 07:49 Labs: Laboratory Results - last 24 hr 08/02/23 08/02/23 08/02/23 13:45 14:29 14:32 MCV 97.8 MCH 30.7 MCHC 31.4 RDW 14.8 Plt Count 197 D MPV 8.8 L Immature Gran % (Auto) 1.3 H Neut % (Auto) 93.0 H Lymph % (Auto) 2.3 L Swisher % (Auto) 2.8 Eos % (Auto) 0.3 Baso % (Auto) 0.3 Lymph # (Auto) 0.2 L Swisher # (Auto) 0.3 Eos # (Auto) 0.0 Baso # (Auto) 0.0 Abs Immat Gran (auto) 0.13 H Absolute Neuts (auto) 9.4 H Absolute Nucleated RBC 0.000 Nucleated RBC % (auto) 0.0 Smear Tech's Comments VERIFIED VBG pH 7.29 L VBG pCO2 76 VBG pO2 88 VBG HCO3 36 H VBG O2 Saturation 99.0 VBG Base Excess 7.6 Anion Gap 16 Estim Creat Clear Calc 100.4 Estimated GFR > 60 POC Glucose Random Glucose 309 H Lactic Acid 1.2 Calcium 8.8 D Magnesium 1.6 Total Bilirubin 0.3 AST 36 H ALT 45 H Alkaline Phosphatase 61 Troponin I High Sens 8.7 D Total Protein 6.9 Albumin 3.8 Urine Color Urine Appearance Urine pH Ur Specific Echo Urine Protein Urine Glucose (UA) Urine Ketones Urine Blood Urine Nitrite Ur Leukocyte Esterase Urine RBC Urine WBC Ur Squamous Epith Cells Urine Bacteria Hyaline Casts Urine Opiates Screen Ur Buprenorphine Scrn Ur Oxycodone Screen Urine Methadone Screen Urine Fentanyl Screen Ur Barbiturates Screen Ur Phencyclidine Scrn Ur Amphetamines Screen U Benzodiazepines Scrn Urine Cocaine Screen U Marijuana (THC) Screen Influenza Type A (PCR) Influenza Type B (PCR) RSV RNA Qual (PCR) SARS-CoV-2 RNA (RT-PCR) 08/02/23 08/02/23 08/02/23 18:50 19:42 21:18 MCV MCH MCHC RDW Plt Count MPV Immature Gran % (Auto) Neut % (Auto) Lymph % (Auto) Swisher % (Auto) Eos % (Auto) Baso % (Auto) Lymph # (Auto) Swisher # (Auto) Eos # (Auto) Baso # (Auto) Abs Immat Gran (auto) Absolute Neuts (auto) Absolute Nucleated RBC Nucleated RBC % (auto) Smear Tech's Comments VBG pH 7.29 L VBG pCO2 71 VBG pO2 102 VBG HCO3 35 H VBG O2 Saturation 100.0 VBG Base Excess 6.5 Anion Gap Estim Creat Clear Calc Estimated GFR POC Glucose 403 H* Random Glucose Lactic Acid Calcium Magnesium Total Bilirubin AST ALT Alkaline Phosphatase Troponin I High Sens Total Protein Albumin Urine Color Yellow Urine Appearance Clear Urine pH 6.0 Ur Specific Echo 1.020 Urine Protein Negative Urine Glucose (UA) >=1000 H Urine Ketones Negative Urine Blood Negative Urine Nitrite Negative Ur Leukocyte Esterase Negative Urine RBC 0-2 Urine WBC 0-5 Ur Squamous Epith Cells 3-5 Urine Bacteria None Seen Hyaline Casts 0-2 Urine Opiates Screen Not Detected Ur Buprenorphine Scrn Not Detected Ur Oxycodone Screen Not Detected Urine Methadone Screen Positive H Urine Fentanyl Screen Not Detected Ur Barbiturates Screen Not Detected Ur Phencyclidine Scrn Not Detected Ur Amphetamines Screen Not Detected U Benzodiazepines Scrn Not Detected Urine Cocaine Screen Not Detected U Marijuana (THC) Screen Not Detected Influenza Type A (PCR) NEGATIVE Influenza Type B (PCR) NEGATIVE RSV RNA Qual (PCR) NEGATIVE SARS-CoV-2 RNA (RT-PCR) NEGATIVE 08/03/23 08/03/23 08/03/23 02:38 07:36 07:49 MCV 96.0 MCH 29.9 MCHC 31.2 RDW 14.6 Plt Count 201 MPV 9.0 L Immature Gran % (Auto) 1.2 H Neut % (Auto) 93.2 H Lymph % (Auto) 2.7 L Swisher % (Auto) 2.8 Eos % (Auto) 0.0 Baso % (Auto) 0.1 Lymph # (Auto) 0.2 L Swisher # (Auto) 0.2 Eos # (Auto) 0.0 Baso # (Auto) 0.0 Abs Immat Gran (auto) 0.10 H Absolute Neuts (auto) 7.6 Absolute Nucleated RBC 0.020 H Nucleated RBC % (auto) 0.2 Smear Tech's Comments VERIFIED VBG pH VBG pCO2 VBG pO2 VBG HCO3 VBG O2 Saturation VBG Base Excess Anion Gap 14 Estim Creat Clear Calc 100.6 Estimated GFR > 60 POC Glucose 289 H 247 H Random Glucose 297 H Lactic Acid Calcium 9.7 D Magnesium Total Bilirubin 0.2 AST 16 ALT 37 H Alkaline Phosphatase 62 Troponin I High Sens Total Protein 6.2 L Albumin 3.7 Urine Color Urine Appearance Urine pH Ur Specific Echo Urine Protein Urine Glucose (UA) Urine Ketones Urine Blood Urine Nitrite Ur Leukocyte Esterase Urine RBC Urine WBC Ur Squamous Epith Cells Urine Bacteria Hyaline Casts Urine Opiates Screen Ur Buprenorphine Scrn Ur Oxycodone Screen Urine Methadone Screen Urine Fentanyl Screen Ur Barbiturates Screen Ur Phencyclidine Scrn Ur Amphetamines Screen U Benzodiazepines Scrn Urine Cocaine Screen U Marijuana (THC) Screen Influenza Type A (PCR) Influenza Type B (PCR) RSV RNA Qual (PCR) SARS-CoV-2 RNA (RT-PCR) Assessment and Plan (1) Acute exacerbation of chronic obstructive airways disease: Status: Acute (2) Acute on chronic respiratory failure with hypoxia and hypercapnia: Status: Acute (3) CHITO (obstructive sleep apnea): Status: Acute Plan 53 year old female with history of chronic hypoxic and hypercarbic respiratory failure on 2 L nasal cannula and BiPAP at night, CHITO/OHS/asthma/COPD overlap, chronic methadone use, diabetes, recurrent admissions for respiratory failure d/t Acute on chronic hypercapnic and hypoxic respiratory failure + obstructive sleep apnea + obesity hypoventilatory syndrome. Continue BiPAP q.h.s. and PRN during the day Continue supplemental oxygen, 2 L at baseline bronchodilators by Neb continue iv solumedrol, change to Prednisone tomorrow Continue montelukast and Daliresp. Avoid sedative. Pulmonology consult for further recommendations. Essential hypertension. Continue diltiazem and hydralazine. GERD. Continue PPI. HFpEF. CXR neg. Continue Lasix. Hyperlipidemia. Continue statin. Mental health. On hold to avoid sedation. Type 2 diabetes mellitus. Blood glucose monitoring before meals and bedtime. Continue Lantus and metformin. Insulin sliding scale. Diabetic diet. Morbid obesity, Weight loss advised Chronic opiate dependence. Continue methadone when confirmed. DVT prophylaxis: Heparin Code status: Full need for inpatient: acute hypoxic resp failure due to copd exacerbation requring bipap, iv sterid Quality Stroke Does the patient have a stroke diagnosis?: No VTE Prior VTE?: No VTE Risk Level:: Medical - moderate - high VTE Device Contraindication: Treatment Not Indicated VTE Drug Contraindication: N/A - Med Ordered
--- NOTE | 2023-08-03 09:52 | PC.NURSE ---
Call placed to [facility] in [place], spoke with Nimo to obtain dose confirmation. Nimo reports, this patient is dosed by her visiting nurse, Wilda. This nurse spoke with Wilda as well. Both confirm dosage is 50mg, daily. Wilda picked up 14 bottles for dosing on 07/26/23. Last dose was 50mg on 08/02/23 at 0900.
--- NOTE | 2023-08-03 10:04 | MHC.CM.PN ---
IMM 08/02. PT SSO. PT IS A READMISSION. PT LIVES AT HOME WITH HER DAUGHTER, RECEIVES [employer] 7 DAYS/WEEK, HAS [facility] [employer] [facility], AND GOES TO [facility] IN [place] FOR METHADONE. PT USES A WALKER, AND HAS HOME O2 THROUGH [facility]. PTS FAMILY WILL TRANSPORT HER HOME AT DISCHARGE. HCP ON FILE AND VERIFIED. PCP: DR. FILOMEAN HERNANDEZ
--- NOTE | 2023-08-03 10:45 | HE.PHANOTE ---
Methadone: Patient receives from [facility] [place] in [place] ([phone]). Per Kenneth, home nurse, patient last received 50mg on 08/02/23 at 0900.
[2023-08-03 11:21] LABS: Glucose, Whole Blood 332 mg/dL (60-115)
[2023-08-03] MEDS: Budesonide 0.5 MG/2 ML AMPUL.NEB INHALE ×2 (11:48→19:30)
[2023-08-03] MEDS: methADONE HCl 20 MG/2 ML ORAL.CONC 50 MG PO (12:23)
[2023-08-03] MEDS: hydrALAZINE HCl 25 MG TABLET PO ×2 (12:24→16:31)
[2023-08-03] MEDS: lamoTRIgine 25 MG TABLET 150 MG PO ×2 (12:25→21:31)
[2023-08-03] MEDS: dilTIAZem HCL CD 180 MG CAP.ER.24H 360 MG PO (12:25)
[2023-08-03] MEDS: Roflumilast 500 MCG TABLET PO (12:26)
[2023-08-03] MEDS: Omeprazole 40 MG CAPSULE.DR PO (12:26)
[2023-08-03] MEDS: Furosemide 40 MG TABLET PO (12:27)
[2023-08-03] MEDS: Loratadine 10 MG TABLET PO (12:27)
[2023-08-03] MEDS: Gabapentin 300 MG CAPSULE PO ×2 (12:27→21:31)
[2023-08-03] MEDS: Folic Acid 1 MG TABLET PO (12:27)
[2023-08-03] MEDS: metFORMIN HCl ER 500 MG TAB.ER.24H PO (14:14)
[2023-08-03] MEDS: acetaZOLAMIDE 250 MG TABLET PO ×2 (14:14→21:31)
[2023-08-03] MEDS: azaTHIOprine 50 MG TABLET 100 MG PO (14:14)
[2023-08-03] MEDS: Calcitonin,Salmon,Synth Nasal 3.7 ML BOTTLE 1 SPRAY NOSTRIL-B (16:31)
[2023-08-03 16:58] LABS: Glucose, Whole Blood 255 mg/dL (60-115)
[2023-08-03 20:46] LABS: Glucose, Whole Blood 292 mg/dL (60-115)
[2023-08-03] MEDS: Montelukast Sodium 10 MG TABLET PO (21:31)
[2023-08-03] MEDS: clonazePAM 1 MG TABLET PO (21:31)
[2023-08-03] MEDS: Insulin Glargine,Hum.rec.anlog 100 UNIT/ML 10 ML VIAL 45 UNIT SUBCUT (21:31)
[2023-08-03] MEDS: Atorvastatin Calcium 20 MG TABLET PO (21:31)
--- NOTE | 2023-08-03 21:32 | PM.CNPUL ---
History of Present Illness History of Present Illness Consult date: 08/03/23 Chief complaint: Acute hypoxic and hypercapnea failure Narrative: This is an in patient pulmonary consultation. The patient is a 53 years old woman with past medical history significant for chronic hypoxic and hypercapnic respiratory failure/COPD -on home oxygen 2L/min and prednisone, HFpEF, morbid obesity, obstructive sleep apnea on AVAPS, type 2 diabetes mellitus, essential hypertension, chronic pain on methadone and hyperlipidemia presents to the emergency department complaining of worsening shortness of breath since yesterday associated with wheezing and mild cough. Did not report fever, chills, chest pain, headache or palpitations. Denied any acute gastrointestinal genitourinary symptoms. Did not report any She quit tobacco smoking couple of months ago. Denied alcohol abuse or illicit drug use. In the ED, she was found to have tachycardia and tachypnea. She had a bloodgas demonstrating acute on chronic hypercarbic respiratory failure, She was started on BiPAP 18/6 and off it for the last several hours. Currently on 2 L/min supplemental oxygen via nasal cannula which is her baseline. Blood workup showed no leukocytosis, bandemia or lactic acidosis. There are no electrolyte imbalances. Renal function is adequate. Glucose is 403. Transaminases are slightly elevated. Bilirubin and alk-phos are normal. CXR is negative. ECG showed sinus tachycardia with right bundle branch block, LVH changes and nonspecific ST or T-wave changes. She is breathing a little better, but she is very weak specially after her ICU stay where she had been intubated. She is reluctant to go to an inpt rehab. Review of Systems Constitutional: Constitutional: Reports headache(s) and Reports weakness Eyes: Eyes: Denies blurry vision and Denies itchy eyes ENT: Reports headache(s), Denies nasal congestion, Denies post nasal drip, Denies sinus pain, Denies sinus pressure and Denies other ( Thrush) Cardiovascular: Cardiovascular: Denies chest pain, Reports pedal edema, Reports dyspnea, Reports dyspnea on exertion, Reports orthopnea and Reports paroxysmal nocturnal dyspnea Respiratory: Respiratory: Reports dyspnea, Reports dyspnea on exertion and Reports wheezing Gastrointestinal: Gastrointestinal: Denies abdominal pain and Denies heartburn Musculoskeletal: Musculoskeletal: Reports abnormal gait, Denies myalgias, Denies arthralgias, Denies joint swelling and Reports muscle weakness Integumentary/Breasts: Skin/Breast: Denies rash Neurologic: Reports abnormal gait, Reports headache(s), Denies memory loss, Denies seizure-like activity and Reports weakness Psychiatric: Psychiatric: Denies abnormal sleep pattern, Denies anxiety and Denies memory loss Endocrine: Endocrine: Denies heat intolerance Hematologic/Lymphatic: Hematologic/Lymphatic: Denies easy bruising Allergic/Immunologic: Allergic/Immunologic: Denies itchy eyes, Denies seasonal rhinorrhea and Reports wheezing PMFSH Past Medical History Medical History (Updated 08/03/23 @ 21:50 by Allan Brito MD) Intensive care (ICU) myopathy Asthma CHITO (obstructive sleep apnea) Type 2 diabetes mellitus Opioid dependence Constipation Salmonella gastroenteritis Obesity with alveolar hypoventilation Congestive heart failure Chronic constipation Acute respiratory failure Hypertensive cardiovascular disease Pulmonary nodule Chronic respiratory failure Tobacco abuse Asthma-COPD overlap syndrome Hyperlipidemia, unspecified Essential hypertension Chronic respiratory failure Family History Family History Father Diabetes Other Asthma Surgical History Surgical History H/O tubal ligation Social History Social History Household Members: Children Household Members Other:: daughter Housing: Apartment Do you presently have visiting nurse or other home services: Yes Unable to assess alcohol history related to: Unknown Alcohol intake: never Comment: 254 Patient Tobacco Use Status: Former Tobacco user Quit Date: February 2022 Tobacco use type: Cigarette Cigarettes Per Day: 1 Years Smoked: 35 e-Cigarette/Vaping Use: Currently Using Second Hand Smoke Exposure: No Substance Use Type: Opiates Advance Directives Date on File: 06/12/21 service: No Current occupational status: unemployed and disabled Meds Allergies Allergy/AdvReac Type Severity Reaction Status Date / Time No Known Allergies Allergy Verified 08/02/23 13:35 [No Known Allergies*] Active Medications: Current Medications Acetaminophen (Acetaminophen 325 Mg Tablet) 975 mg PO Q6H PRN PRN Reason: Pain, Mild (Pain Scale 1-3) Acetaminophen (Acetaminophen Supp 325 Mg Supp.Rect) 975 mg OR Q6H PRN PRN Reason: mild pain, headache or fever Acetazolamide (Acetazolamide 250 Mg Tablet) 250 mg PO BID ANA Last Admin: 08/03/23 21:31 Dose: 250 mg Albuterol Sulfate (Albuterol Sulfate (0.083%) 2.5 Mg/3 Ml Vial.Neb) 2.5 mg INHALE Q2H PRN PRN Reason: Shortness of Breath/Wheezing Last Admin: 08/03/23 05:13 Dose: 2.5 mg Albuterol Sulfate (Albuterol Sulfate 90 Mcg 8 Gm Inhaler) 2 puff INHALE Q4H PRN PRN Reason: Shortness Of Breath Or Wheezing Albuterol/Ipratropium (Albuterol/Iprat 2.5/0.5mg 3 Ml Ampul.Neb) 3 ml INHALE RQ4H WHILE AWAKE [facility] Last Admin: 08/03/23 19:30 Dose: 3 ml Atorvastatin Calcium (Atorvastatin Calcium 20 Mg Tablet) 20 mg PO BEDTIME [facility] Last Admin: 08/03/23 21:31 Dose: 20 mg Azathioprine (Azathioprine 50 Mg Tablet) 100 mg PO DAILY [facility] Last Admin: 08/03/23 14:14 Dose: 100 mg Budesonide (Budesonide 0.5 Mg/2 Ml Ampul.Neb) 0.5 mg INHALE RBID [facility] Last Admin: 08/03/23 19:30 Dose: 0.5 mg Calcitonin Mckinney (Calcitonin,Mckinney,Synth Nasal 3.7 Ml Bottle) 1 spray NOSTRIL-B DAILY [facility] Last Admin: 08/03/23 16:31 Dose: 1 spray Clonazepam (Clonazepam 1 Mg Tablet) 1 mg PO BID PRN PRN Reason: Anxiety Last Admin: 08/03/23 21:31 Dose: 1 mg Diltiazem HCl (Diltiazem Hcl Cd 180 Mg Cap.Er.24h) 360 mg PO DAILY [facility]; Protocol Last Admin: 08/03/23 12:25 Dose: 360 mg Docusate Sodium (Docusate Sodium 100 Mg Capsule) 100 mg PO BID PRN PRN Reason: constipation Folic Acid (Folic Acid 1 Mg Tablet) 1 mg PO DAILY [facility] Last Admin: 08/03/23 12:27 Dose: 1 mg Furosemide (Furosemide 40 Mg Tablet) 40 mg PO DAILY [facility]; Protocol Last Admin: 08/03/23 12:27 Dose: 40 mg Gabapentin (Gabapentin 300 Mg Capsule) 300 mg PO BID [facility] Last Admin: 08/03/23 21:31 Dose: 300 mg Glucose (Glucose Gel 15 Gm Gel..Gram.) 15 gm PO Q15M PRN; Protocol PRN Reason: per Hypoglycemia Standing Ord. Heparin Sodium (Porcine) (Heparin Sodium,Porcine 5,000 Unit/Ml Vial) 5,000 unit SUBCUT Q8H [facility] Last Admin: 08/03/23 16:32 Dose: 5,000 unit Hydralazine HCl (Hydralazine Hcl 25 Mg Tablet) 25 mg PO TIDWM [facility]; Protocol Last Admin: 08/03/23 16:31 Dose: 25 mg Dextrose (D10) 250 mls @ 750 mls/hr IV Q15M PRN; Protocol PRN Reason: per Hypoglycemia Standing Ord. Insulin Glargine (Insulin Glargine,Hum.Rec.Anlog 100 Unit/Ml 10 Ml Vial) 45 unit SUBCUT BEDTIME [facility] Last Admin: 08/03/23 21:31 Dose: 45 unit Insulin Human Lispro (Insulin Lispro 100 Unit/Ml 3 Ml Vial) 0 unit SUBCUT QIDACHS [facility]; Protocol Last Admin: 08/03/23 21:32 Dose: 8 unit Lactic Acid (Ammonium Lactate 12 % Lotion 226 Gm Bottle) 1 appl TOPICAL DAILY PRN; Protocol PRN Reason: Dry Skin Lamotrigine (Lamotrigine 25 Mg Tablet) 150 mg PO BID [facility] Last Admin: 08/03/23 21:31 Dose: 150 mg Lidocaine (Lidocaine 4 % Patch Adh..Patch) 1 patch TRANSDERMA DAILY PRN PRN Reason: Pain Loratadine (Loratadine 10 Mg Tablet) 10 mg PO DAILY [facility] Last Admin: 08/03/23 12:27 Dose: 10 mg Metformin HCl (Metformin Hcl Er 500 Mg Tab.Er.24h) 500 mg PO DAILY [facility] Last Admin: 08/03/23 14:14 Dose: 500 mg Methadone HCl (Methadone Hcl 20 Mg/2 Ml Oral.Conc) 50 mg PO DAILY [facility] Last Admin: 08/03/23 12:23 Dose: 50 mg Methylprednisolone Sodium Succinate (Methylprednisolone Sod Succ 40 Mg/Ml Vial) 40 mg IVPUSH Q12H [facility] Last Admin: 08/03/23 21:31 Dose: 40 mg Montelukast Sodium (Montelukast Sodium 10 Mg Tablet) 10 mg PO BEDTIME [facility] Last Admin: 08/03/23 21:31 Dose: 10 mg Non-Formulary Medication (Arformoterol [Brovana]) 2 ml INHALE Q12H [facility] Omeprazole (Omeprazole 40 Mg Capsule.Dr) 40 mg PO DAILY@0630 [facility] Last Admin: 08/03/23 12:26 Dose: 40 mg Ondansetron HCl (Ondansetron Hcl 4 Mg/2 Ml Vial) 4 mg IVPUSH Q8H PRN PRN Reason: Nausea and Vomiting Polyethylene Glycol (Polyethylene Glycol 3350 17 Gm Powd.Pack) 17 gm PO DAILY PRN PRN Reason: constipation Roflumilast (Roflumilast 500 Mcg Tablet) 500 mcg PO DAILY [facility] Last Admin: 08/03/23 12:26 Dose: 500 mcg Sodium Chloride (0.9 % Sodium Chloride Flush 3 Ml Syringe) 3 ml IVFLUSH QSHIFT [facility] Last Admin: 08/03/23 21:32 Dose: 3 ml Tiotropium [place] (Tiotropium [place] 2.5 Mcg 1 Puff/2.5 Mcg Mist.Inhal) 2 puff INHALE RDAILY [facility] Last Admin: 08/03/23 15:38 Dose: Not Given Zolpidem Tartrate (Zolpidem Tartrate 5 Mg Tablet) 5 mg PO BEDTIME PRN PRN Reason: Sleep Home Medications ?Medication ?Instructions ?Recorded ?Confirmed ?Last Taken ?Type loratadine 10 mg tablet (Claritin) 10 mg PO DAILY 12/30/19 08/03/23 05/18/23 History montelukast 10 mg tablet 10 mg PO BEDTIME 12/30/19 08/03/23 05/18/23 History diltiazem HCl 360 mg capsule,24 360 mg PO DAILY 11/16/20 08/03/23 05/18/23 History hr,extended release (Tiadylt ER) roflumilast 500 mcg tablet 500 mcg PO DAILY 11/16/20 08/03/23 05/18/23 History (Daliresp) rosuvastatin 5 mg tablet 5 mg PO BEDTIME 11/16/20 08/03/23 05/18/23 History metformin 500 mg tablet,extended 500 mg PO DAILY 05/18/21 08/03/23 05/18/23 History release 24 hr methadone 10 mg/mL oral concentrate 50 mg PO DAILY 06/06/21 08/03/23 08/02/23 09:00 History hydralazine 25 mg tablet 25 mg PO TIDWM 0808/03/23 05/18/23 History insulin lispro 100 unit/mL 4 unit subcut TIDAC PRN 11/02/21 08/03/23 05/18/23 History subcutaneous solution Hyperglycemia clonazepam 1 mg tablet 1 mg PO BID PRN Anxiety 06/28/22 08/03/23 Unknown History lamotrigine 150 mg tablet 150 mg PO BID 07/29/22 08/03/23 05/18/23 History calcitonin (salmon) 200 1 spray intranasal DAILY 09/30/22 08/03/23 05/18/23 History unit/actuation nasal spray insulin glargine 100 unit/mL 45 unit subcut BEDTIME 09/30/22 08/03/23 05/18/23 History subcutaneous solution (Lantus U-100 Insulin) docusate sodium 100 mg capsule 100 mg PO BID PRN constipation 10/20/22 08/03/23 Unknown History nebulizers 11/08/22 07/16/23 02/02/23 09:00 History polyethylene glycol 3350 17 17 g PO DAILY PRN constipation 12/21/22 08/03/23 02/20/23 History gram/dose oral powder (Miralax) ammonium lactate 12 % lotion 1 appl topical DAILY PRN Dry Skin 02/02/23 08/03/23 05/18/23 History diclofenac sodium 1 % topical gel 4 g topical QID PRN Pain 05/04/23 08/03/23 Unknown History zolpidem 5 mg tablet 5 mg PO BEDTIME PRN Sleep 05/04/23 08/03/23 Unknown History cholecalciferol (vitamin D3) 1,250 1,250 mcg PO MOTH 05/19/23 08/03/23 Unknown History mcg (50,000 unit) capsule lidocaine 5 % topical patch 1 patch topical DAILY PRN Pain 05/19/23 08/03/23 Unknown History azathioprine 50 mg tablet 100 mg PO DAILY 06/24/23 08/03/23 Unknown History Physical Exam Vital Signs: Vital Signs: Last Vital Signs Temp 97.0 F 08/03/23 19:35 Pulse 105 H 08/03/23 19:35 Resp 20 08/03/23 19:35 BP 181/82 H 08/03/23 19:35 Pulse Ox 99 08/03/23 19:35 O2 Del Method Nasal Cannula 08/03/23 19:35 O2 Flow Rate 2 08/03/23 19:35 BMI result Body Mass Index 38.1 Const: Other: General: AO X 3, no acute distress, cushinoid Resp: diminished, end exp wheezing CVS: S1,S2,RRR GI: +BS, NT, no distention Skin: No rash Neuro: motor grossly intact Psych: appropriate affect Results Laboratory Findings 08/03/23 07:49 08/03/23 07:49 Abnormal lab findings: Abnormal Labs 08/02/23 08/02/23 08/02/23 13:45 14:29 14:32 RBC 3.65 L D Hgb 11.2 L Hct 35.7 L MPV 8.8 L Immature Gran % (Auto) 1.3 H Neut % (Auto) 93.0 H Lymph % (Auto) 2.3 L Lymph # (Auto) 0.2 L Abs Immat Gran (auto) 0.13 H Absolute Neuts (auto) 9.4 H Absolute Nucleated RBC VBG pH 7.29 L VBG HCO3 36 H Carbon Dioxide BUN 18 H POC Glucose Random Glucose 309 H AST 36 H ALT 45 H Total Protein Urine Glucose (UA) Urine Methadone Screen 08/02/23 08/02/23 08/02/23 18:50 19:42 21:18 RBC Hgb Hct MPV Immature Gran % (Auto) Neut % (Auto) Lymph % (Auto) Lymph # (Auto) Abs Immat Gran (auto) Absolute Neuts (auto) Absolute Nucleated RBC VBG pH 7.29 L VBG HCO3 35 H Carbon Dioxide BUN POC Glucose 403 H* Random Glucose AST ALT Total Protein Urine Glucose (UA) >=1000 H Urine Methadone Screen Positive H 08/03/23 08/03/23 08/03/23 02:38 07:36 07:49 RBC 3.51 L Hgb 10.5 L Hct 33.7 L MPV 9.0 L Immature Gran % (Auto) 1.2 H Neut % (Auto) 93.2 H Lymph % (Auto) 2.7 L Lymph # (Auto) 0.2 L Abs Immat Gran (auto) 0.10 H Absolute Neuts (auto) Absolute Nucleated RBC 0.020 H VBG pH VBG HCO3 Carbon Dioxide 33 H BUN 24 H POC Glucose 289 H 247 H Random Glucose 297 H AST ALT 37 H Total Protein 6.2 L Urine Glucose (UA) Urine Methadone Screen 08/03/23 08/03/23 08/03/23 11:09 16:54 20:42 RBC Hgb Hct MPV Immature Gran % (Auto) Neut % (Auto) Lymph % (Auto) Lymph # (Auto) Abs Immat Gran (auto) Absolute Neuts (auto) Absolute Nucleated RBC VBG pH VBG HCO3 Carbon Dioxide BUN POC Glucose 332 H 255 H 292 H Random Glucose AST ALT Total Protein Urine Glucose (UA) Urine Methadone Screen Microbiology: Microbiology 08/02/23 14:20 Blood - Venous Blood Culture - Preliminary No growth after 24 hours. 08/02/23 13:36 Blood - Venous Blood Culture - Preliminary No growth after 24 hours. Assessment and Plan (1) Acute exacerbation of chronic obstructive airways disease: Status: Acute (2) Acute on chronic respiratory failure with hypoxia and hypercapnia: Status: Acute (3) CHITO (obstructive sleep apnea): Status: Acute (4) Obesity hypoventilation syndrome: Status: Acute (5) COPD (chronic obstructive pulmonary disease): Status: Acute (6) Pneumonia: Qualifiers: Laterality: bilateral Lung location: lower lobe of lung Pneumonia type: due to unspecified organism Qualified Code(s): J18.9 - Pneumonia, unspecified organism Status: Acute (7) Intensive care (ICU) myopathy: Status: Acute worsened by the high steroid doses Plan continue current medical regimen Needs PT/OT for the muscle weakness Continue BIPAP 01/09 ABG in the morning prednisone taper sputum cx IVIG as OUTPT Procedures Date of Service Date of Service: 08/03/23
[2023-08-04] VITALS (19 sets, daily range): BP systolic 142–181; BP diastolic 67–91; PULSE 83–117; RESP 13–24; TEMP 36.1–36.8; O2SAT 93–97
[2023-08-04] MEDS: Omeprazole 40 MG CAPSULE.DR PO (06:00)
[2023-08-04 06:04] LABS: ABG Base Excess 10.2 mmol/L; ABG HCO3 39 mmol/L (22-26); ABG pCO2 75 mmHg (32-45); ABG pH 7.31 (7.35-7.45); ABG pO2 78 mmHg (83-108)
[2023-08-04 06:56] LABS: ABG Refer to POC result
[2023-08-04] MEDS: Tiotropium Bromide 2.5 mcg 1 PUFF/2.5 MCG MIST.INHAL 2 PUFF INHALE (07:38)
[2023-08-04] MEDS: Albuterol/Iprat 2.5/0.5MG 3 ML AMPUL.NEB INHALE ×4 (07:38→20:25)
[2023-08-04] MEDS: Budesonide 0.5 MG/2 ML AMPUL.NEB INHALE ×2 (07:38→20:25)
[2023-08-04 08:12] LABS: Glucose, Whole Blood 297 mg/dL (60-115)
[2023-08-04] MEDS: methADONE HCl 20 MG/2 ML ORAL.CONC 50 MG PO (09:28)
[2023-08-04] MEDS: acetaZOLAMIDE 250 MG TABLET PO (09:29)
[2023-08-04] MEDS: Gabapentin 300 MG CAPSULE PO ×2 (09:29→22:20)
[2023-08-04] MEDS: Roflumilast 500 MCG TABLET PO (09:30)
[2023-08-04] MEDS: Furosemide 40 MG TABLET PO (09:30)
[2023-08-04] MEDS: azaTHIOprine 50 MG TABLET 100 MG PO (09:30)
[2023-08-04] MEDS: dilTIAZem HCL CD 180 MG CAP.ER.24H 360 MG PO (09:30)
[2023-08-04] MEDS: Folic Acid 1 MG TABLET PO (09:30)
[2023-08-04] MEDS: metFORMIN HCl ER 500 MG TAB.ER.24H PO (09:30)
[2023-08-04] MEDS: hydrALAZINE HCl 25 MG TABLET PO ×3 (09:30→17:19)
[2023-08-04] MEDS: lamoTRIgine 25 MG TABLET 150 MG PO ×2 (09:30→22:20)
[2023-08-04] MEDS: Loratadine 10 MG TABLET PO (09:30)
[2023-08-04] MEDS: Insulin Lispro 100 UNIT/ML 3 ML VIAL SUBCUT ×4 (09:33→22:21)
[2023-08-04] MEDS: methylPREDNISolone Sod Succ 40 MG/ML VIAL IVPUSH (09:33)
[2023-08-04] MEDS: Heparin Sodium,Porcine 5,000 UNIT/ML VIAL 5000 UNIT SUBCUT ×2 (09:33→17:19)
[2023-08-04] MEDS: 0.9 % Sodium Chloride Flush 3 ML SYRINGE IVFLUSH ×3 (09:34→22:21)
--- NOTE | 2023-08-04 09:37 | HO.PM.IMPN ---
Subjective Subjective Date of Service: 08/04/23 Interval History: Seen in f/u for acute on chronic hypoxic respiratory failure d/t copd exacerbation interval history: She doesn't feel as good today, ABG show co2 retention this morning, feels sob Physical Exam Vital Signs: Vital Signs: Last Vital Signs Temp 97 F 08/04/23 07:22 Pulse 90 08/04/23 09:30 Resp 20 08/04/23 07:44 BP 159/84 H 08/04/23 09:30 Pulse Ox 94 08/04/23 07:22 O2 Del Method BiPAP 08/04/23 07:22 O2 Flow Rate 2 08/03/23 19:35 BMI result Body Mass Index 38.1 General: AO X 3, no acute distress, cushinoid Resp: diminished, exp wheezing, mild wob CVS: S1,S2,RRR GI: +BS, NT, no distention Skin: No rash Neuro: motor grossly intact Psych: appropriate affect Const: Other: General: AO X 3, no acute distress, cushinoid Resp: diminished, end exp wheezing CVS: S1,S2,RRR GI: +BS, NT, no distention Skin: No rash Neuro: motor grossly intact Psych: appropriate affect Objective Data Active Medications Acetaminophen (Acetaminophen 325 Mg Tablet) 975 mg PO Q6H PRN PRN Reason: Pain, Mild (Pain Scale 1-3) Acetaminophen (Acetaminophen Supp 325 Mg Supp.Rect) 975 mg IA Q6H PRN PRN Reason: mild pain, headache or fever Acetazolamide (Acetazolamide 250 Mg Tablet) 250 mg PO BID ANA Last Admin: 08/04/23 09:29 Dose: 250 mg Documented By: DOMINIK Albuterol Sulfate (Albuterol Sulfate (0.083%) 2.5 Mg/3 Ml Vial.Neb) 2.5 mg INHALE Q2H PRN PRN Reason: Shortness of Breath/Wheezing Last Admin: 08/03/23 05:13 Dose: 2.5 mg Documented By: MARYSOL Albuterol Sulfate (Albuterol Sulfate 90 Mcg 8 Gm Inhaler) 2 puff INHALE Q4H PRN PRN Reason: Shortness Of Breath Or Wheezing Albuterol/Ipratropium (Albuterol/Iprat 2.5/0.5mg 3 Ml Ampul.Neb) 3 ml INHALE RQ4H WHILE AWAKE [facility] Last Admin: 08/04/23 07:38 Dose: 3 ml Documented By: KAREN Atorvastatin Calcium (Atorvastatin Calcium 20 Mg Tablet) 20 mg PO BEDTIME [facility] Last Admin: 08/03/23 21:31 Dose: 20 mg Documented By: LIDIA Azathioprine (Azathioprine 50 Mg Tablet) 100 mg PO DAILY [facility] Last Admin: 08/04/23 09:30 Dose: 100 mg Documented By: DOMINIK Budesonide (Budesonide 0.5 Mg/2 Ml Ampul.Neb) 0.5 mg INHALE RBID [facility] Last Admin: 08/04/23 07:38 Dose: 0.5 mg Documented By: KAREN Calcitonin [place] (Calcitonin,[place],Synth Nasal 3.7 Ml Bottle) 1 spray NOSTRIL-B DAILY [facility] Last Admin: 08/03/23 16:31 Dose: 1 spray Documented By: ERNESTO Clonazepam (Clonazepam 1 Mg Tablet) 1 mg PO BID PRN PRN Reason: Anxiety Last Admin: 08/03/23 21:31 Dose: 1 mg Documented By: LIDIA Diltiazem HCl (Diltiazem Hcl Cd 180 Mg Cap.Er.24h) 360 mg PO DAILY [facility]; Protocol Last Admin: 08/04/23 09:30 Dose: 360 mg Documented By: DOMINIK Docusate Sodium (Docusate Sodium 100 Mg Capsule) 100 mg PO BID PRN PRN Reason: constipation Folic Acid (Folic Acid 1 Mg Tablet) 1 mg PO DAILY [facility] Last Admin: 08/04/23 09:30 Dose: 1 mg Documented By: DOMINIK Furosemide (Furosemide 40 Mg Tablet) 40 mg PO DAILY [facility]; Protocol Last Admin: 08/04/23 09:30 Dose: 40 mg Documented By: DOMINIK Gabapentin (Gabapentin 300 Mg Capsule) 300 mg PO BID [facility] Last Admin: 08/04/23 09:29 Dose: 300 mg Documented By: DOMINIK Glucose (Glucose Gel 15 Gm Gel..Gram.) 15 gm PO Q15M PRN; Protocol PRN Reason: per Hypoglycemia Standing Ord. Heparin Sodium (Porcine) (Heparin Sodium,Porcine 5,000 Unit/Ml Vial) 5,000 unit SUBCUT Q8H [facility] Last Admin: 05/20/24 09:33 Dose: 5,000 unit Documented By: DOMINIK Hydralazine HCl (Hydralazine Hcl 25 Mg Tablet) 25 mg PO TIDWM [facility]; Protocol Last Admin: 08/04/23 09:30 Dose: 25 mg Documented By: DOMINIK Dextrose (D10) 250 mls @ 750 mls/hr IV Q15M PRN; Protocol PRN Reason: per Hypoglycemia Standing Ord. Insulin Glargine (Insulin Glargine,Hum.Rec.Anlog 100 Unit/Ml 10 Ml Vial) 45 unit SUBCUT BEDTIME [facility] Last Admin: 08/03/23 21:31 Dose: 45 unit Documented By: LIDIA Insulin Human Lispro (Insulin Lispro 100 Unit/Ml 3 Ml Vial) 0 unit SUBCUT QIDACHS [facility]; Protocol Last Admin: 08/04/23 09:33 Dose: 8 unit Documented By: DOMINIK Lactic Acid (Ammonium Lactate 12 % Lotion 226 Gm Bottle) 1 appl TOPICAL DAILY PRN; Protocol PRN Reason: Dry Skin Lamotrigine (Lamotrigine 25 Mg Tablet) 150 mg PO BID [facility] Last Admin: 08/04/23 09:30 Dose: 150 mg Documented By: DOMINIK Lidocaine (Lidocaine 4 % Patch Adh..Patch) 1 patch TRANSDERMA DAILY PRN PRN Reason: Pain Loratadine (Loratadine 10 Mg Tablet) 10 mg PO DAILY [facility] Last Admin: 08/04/23 09:30 Dose: 10 mg Documented By: DOMINIK Metformin HCl (Metformin Hcl Er 500 Mg Tab.Er.24h) 500 mg PO DAILY [facility] Last Admin: 08/04/23 09:30 Dose: 500 mg Documented By: DOMINIK Methadone HCl (Methadone Hcl 20 Mg/2 Ml Oral.Conc) 50 mg PO DAILY [facility] Last Admin: 08/04/23 09:28 Dose: 50 mg Documented By: DOMINIK Methylprednisolone Sodium Succinate (Methylprednisolone Sod Succ 40 Mg/Ml Vial) 40 mg IVPUSH Q12H [facility] Last Admin: 08/04/23 09:33 Dose: 40 mg Documented By: DOMINIK Montelukast Sodium (Montelukast Sodium 10 Mg Tablet) 10 mg PO BEDTIME [facility] Last Admin: 08/03/23 21:31 Dose: 10 mg Documented By: LIDIA Omeprazole (Omeprazole 40 Mg Capsule.) 40 mg PO DAILY@0630 [facility] Last Admin: 08/04/23 06:00 Dose: 40 mg Documented By: LIDIA Ondansetron HCl (Ondansetron Hcl 4 Mg/2 Ml Vial) 4 mg IVPUSH Q8H PRN PRN Reason: Nausea and Vomiting Polyethylene Glycol (Polyethylene Glycol 3350 17 Gm Powd.Pack) 17 gm PO DAILY PRN PRN Reason: constipation Roflumilast (Roflumilast 500 Mcg Tablet) 500 mcg PO DAILY [facility] Last Admin: 08/04/23 09:30 Dose: 500 mcg Documented By: DOMINIK Sodium Chloride (0.9 % Sodium Chloride Flush 3 Ml Syringe) 3 ml IVFLUSH QSHIFT [facility] Last Admin: 08/04/23 09:34 Dose: 3 ml Documented By: DOMINIK Tiotropium [place] (Tiotropium [place] 2.5 Mcg 1 Puff/2.5 Mcg Mist.Inhal) 2 puff INHALE RDAILY [facility] Last Admin: 08/04/23 07:38 Dose: 2 puff Documented By: KAREN Zolpidem Tartrate (Zolpidem Tartrate 5 Mg Tablet) 5 mg PO BEDTIME PRN PRN Reason: Sleep Labs 08/03/23 07:49 08/03/23 07:49 Labs: Laboratory Results - last 24 hr 08/03/23 08/03/23 08/03/23 11:09 16:54 20:42 O2 Saturation ABG pH at Pt Temp ABG pCO2 at Pt Temp ABG pO2 at Pt Temp ABG HCO3 ABG Base Excess (Actual) POC Glucose 332 H 255 H 292 H 08/04/23 08/04/23 05:55 07:26 O2 Saturation 94.0 ABG pH at Pt Temp 7.31 L ABG pCO2 at Pt Temp 75 H* ABG pO2 at Pt Temp 78 L ABG HCO3 39 H ABG Base Excess (Actual) 10.2 POC Glucose 297 H Microbiology Microbiology Results: Microbiology 08/03/23 16:38 Gram Stain - Final Sputum - Expectorated 08/02/23 14:20 Blood Culture - Preliminary Blood - Venous No growth after 24 hours. 08/02/23 13:36 Blood Culture - Preliminary Blood - Venous No growth after 24 hours. Assessment and Plan (1) Acute exacerbation of chronic obstructive airways disease: Status: Acute (2) Acute on chronic respiratory failure with hypoxia and hypercapnia: Status: Acute (3) CHITO (obstructive sleep apnea): Status: Acute Plan 53 year old female with history of chronic hypoxic and hypercarbic respiratory failure on 2 L nasal cannula and BiPAP at night, CHITO/OHS/asthma/COPD overlap, chronic methadone use, diabetes, recurrent admissions for respiratory failure d/t Acute on chronic hypercapnic and hypoxic respiratory failure + obstructive sleep apnea + obesity hypoventilatory syndrome. Continue BiPAP q.h.s. and PRN during the day Continue supplemental oxygen, 2 L at baseline bronchodilators by Neb continue iv solumedrol, change to Prednisone tomorrow Continue montelukast and Daliresp. Avoid sedative. Pulmonology consult for further recommendations. Essential hypertension. Continue diltiazem and hydralazine. GERD. Continue PPI. HFpEF. CXR neg. Continue Lasix. Hyperlipidemia. Continue statin. Mental health. On hold to avoid sedation. Type 2 diabetes mellitus. Blood glucose monitoring before meals and bedtime. Continue Lantus and metformin. Insulin sliding scale. Diabetic diet. Morbid obesity, Weight loss advised Chronic opiate dependence. Continue methadone when confirmed. DVT prophylaxis: Heparin Code status: Full need for inpatient: acute hypoxic resp failure due to copd exacerbation requring bipap, iv sterid Quality Stroke Does the patient have a stroke diagnosis?: No VTE Prior VTE?: No VTE Risk Level:: Medical - moderate - high VTE Device Contraindication: Treatment Not Indicated VTE Drug Contraindication: N/A - Med Ordered
--- NOTE | 2023-08-04 11:02 | MHC.CM.PN ---
Pt is not yet ready for DC, she requires ongoing hospital care for acute hypoxic respiratory failure due to COPD exacerbation. DC plan is home, resume services.
[2023-08-04 11:47] LABS: Glucose, Whole Blood 238 mg/dL (60-115)
--- NOTE | 2023-08-04 15:58 | P.PNPL_ITS ---
Subjective Subjective Date of Service: 08/04/23 Interval history: No significant changes in respiratory status. Objective Data Labs 08/03/23 07:49 08/03/23 07:49 Labs: Laboratory Results - last 24 hr 08/03/23 08/03/23 08/04/23 16:54 20:42 05:55 O2 Saturation 94.0 ABG pH at Pt Temp 7.31 L ABG pCO2 at Pt Temp 75 H* ABG pO2 at Pt Temp 78 L ABG HCO3 39 H ABG Base Excess (Actual) 10.2 POC Glucose 255 H 292 H 08/04/23 08/04/23 07:26 11:41 O2 Saturation ABG pH at Pt Temp ABG pCO2 at Pt Temp ABG pO2 at Pt Temp ABG HCO3 ABG Base Excess (Actual) POC Glucose 297 H 238 H Microbiology Microbiology Results: Microbiology 08/02/23 13:36 Blood - Venous Blood Culture - Preliminary No growth after 48 hours. 08/03/23 16:38 Sputum - Expectorated Gram Stain - Final 08/03/23 16:38 Sputum - Expectorated Sputum Culture - Preliminary Culture in progress. 08/02/23 14:20 Blood - Venous Blood Culture - Preliminary No growth after 24 hours. Physical Exam 2 Vital Signs: Vital Signs: Last Vital Signs Temp 98 F 08/04/23 15:10 Pulse 83 08/04/23 15:23 Resp 24 H 08/04/23 15:23 BP 144/67 H 08/04/23 15:10 Pulse Ox 96 08/04/23 15:10 O2 Del Method Nasal Cannula 08/04/23 15:10 O2 Flow Rate 2 08/04/23 15:10 BMI result Body Mass Index 38.1 Const: General: no acute distress, alert and awake Nutritional Appearance: obese Eyes: Sclerae: sclerae normal EOM: EOMs intact bilaterally Neck: Neck: Yes no lymphadenopathy, Yes trachea midline and Yes supple Resp: Effort & Inspection: normal respiratory effort and no respiratory distress Auscultation: clear to auscultation bilaterally Cardio: Rate: regular rate Rhythm: regular rhythm Heart sounds: no gallops, no murmurs and no rubs GI: Palpation (GI): Soft to palpation and Other GI palpation findings present ( Nontender) Auscultation: normal bowel sounds Extrem: General: No clubbing, No cyanosis and Yes edema (Trace bilateral) Procedures Date of Service Date of Service: 08/04/23 Assessment and Plan Assessment and plan (1) Acute exacerbation of chronic obstructive airways disease: Status: Acute (2) Acute on chronic respiratory failure with hypoxia and hypercapnia: Status: Acute (3) CHITO (obstructive sleep apnea): Status: Acute (4) Obesity hypoventilation syndrome: Status: Acute Plan Impression: 53-year-old lady with underlying CHITO/OHS, chronic hypoxic and hypercapnic respiratory failure readmitted with acute on chronic hypercapnic respiratory failure, improving slowly. Recommendations: Agree with current medication regimen, though would suggest increasing her acetazolamide to 500mg twice a day. Time Spent With Patient Time: Total time managing care of this patient today ____ minutes. Progress Note: Quality Stroke Does the patient have a stroke diagnosis?: No
[2023-08-04 16:45] LABS: Glucose, Whole Blood 284 mg/dL (60-115)
[2023-08-04 21:30] LABS: Glucose, Whole Blood 239 mg/dL (60-115)
[2023-08-04] MEDS: Montelukast Sodium 10 MG TABLET PO (22:20)
[2023-08-04] MEDS: Atorvastatin Calcium 20 MG TABLET PO (22:20)
[2023-08-04] MEDS: acetaZOLAMIDE 250 MG TABLET 500 MG PO (22:20)
[2023-08-04] MEDS: Acetaminophen 325 MG TABLET 975 MG PO (22:20)
[2023-08-04] MEDS: Insulin Glargine,Hum.rec.anlog 100 UNIT/ML 10 ML VIAL 45 UNIT SUBCUT (22:21)
[2023-08-05] VITALS (29 sets, daily range): BP systolic 77–187; BP diastolic 47–107; PULSE 81–114; RESP 16–26; TEMP 35–37.5; O2SAT 88–96
[2023-08-05] MEDS: Heparin Sodium,Porcine 5,000 UNIT/ML VIAL 5000 UNIT SUBCUT ×3 (01:25→17:48)
[2023-08-05] MEDS: Omeprazole 40 MG CAPSULE.DR PO (04:16)
[2023-08-05] MEDS: Acetaminophen 325 MG TABLET 975 MG PO (04:18)
[2023-08-05] MEDS: ondansetron HCL 4 MG/2 ML VIAL IVPUSH (04:20)
[2023-08-05 07:07] LABS: Glucose, Whole Blood 78 mg/dL (60-115)
[2023-08-05] MEDS: Tiotropium Bromide 2.5 mcg 1 PUFF/2.5 MCG MIST.INHAL 2 PUFF INHALE (08:11)
[2023-08-05] MEDS: Albuterol/Iprat 2.5/0.5MG 3 ML AMPUL.NEB INHALE ×4 (08:11→21:02)
[2023-08-05] MEDS: Budesonide 0.5 MG/2 ML AMPUL.NEB INHALE (08:11)
[2023-08-05] MEDS: predniSONE 10 MG TABLET 30 MG PO (08:46)
[2023-08-05] MEDS: Gabapentin 300 MG CAPSULE PO (08:46)
[2023-08-05] MEDS: acetaZOLAMIDE 250 MG TABLET 500 MG PO (08:47)
[2023-08-05] MEDS: metFORMIN HCl ER 500 MG TAB.ER.24H PO (08:47)
[2023-08-05] MEDS: Folic Acid 1 MG TABLET PO (08:47)
[2023-08-05] MEDS: Loratadine 10 MG TABLET PO (08:47)
[2023-08-05] MEDS: dilTIAZem HCL CD 180 MG CAP.ER.24H 360 MG PO (08:47)
[2023-08-05] MEDS: hydrALAZINE HCl 25 MG TABLET PO (08:47)
[2023-08-05] MEDS: lamoTRIgine 25 MG TABLET 150 MG PO (08:47)
[2023-08-05] MEDS: Roflumilast 500 MCG TABLET PO (08:47)
[2023-08-05] MEDS: Furosemide 40 MG TABLET PO (08:47)
[2023-08-05] MEDS: methADONE HCl 20 MG/2 ML ORAL.CONC 50 MG PO (08:47)
[2023-08-05] MEDS: 0.9 % Sodium Chloride Flush 3 ML SYRINGE IVFLUSH ×2 (08:48→17:39)
[2023-08-05] MEDS: azaTHIOprine 50 MG TABLET 100 MG PO (08:56)
--- NOTE | 2023-08-05 10:41 | HO.PM.IMPN ---
Subjective Subjective Date of Service: 08/05/23 Interval History: Seen in f/u for acute on chronic hypoxic respiratory failure d/t copd exacerbation interval history:She is still feeling sob Physical Exam Vital Signs: Vital Signs: Last Vital Signs Temp 97.7 F 08/05/23 07:16 Pulse 101 H 08/05/23 08:13 Resp 20 08/05/23 08:13 BP 160/71 H 08/05/23 07:16 Pulse Ox 96 08/05/23 07:16 O2 Del Method Nasal Cannula 08/05/23 07:16 O2 Flow Rate 3 08/05/23 07:16 BMI result Body Mass Index 38.1 General: AO X 3, no acute distress Resp: diminished bs, increased wob CVS: S1,S2,RRR GI: +BS, NT, no distention Skin: No rash Neuro: motor grossly intact Psych: appropriate affect Objective Data Active Medications Acetaminophen (Acetaminophen 325 Mg Tablet) 975 mg PO Q6H PRN PRN Reason: Pain, Mild (Pain Scale 1-3) Last Admin: 08/05/23 04:18 Dose: 975 mg Documented By: MEMO Acetaminophen (Acetaminophen Supp 325 Mg Supp.Rect) 975 mg MD Q6H PRN PRN Reason: mild pain, headache or fever Acetazolamide (Acetazolamide 250 Mg Tablet) 500 mg PO BID [facility] Last Admin: 08/05/23 08:47 Dose: 500 mg Documented By: MILENA Albuterol Sulfate (Albuterol Sulfate (0.083%) 2.5 Mg/3 Ml Vial.Neb) 2.5 mg INHALE Q2H PRN PRN Reason: Shortness of Breath/Wheezing Last Admin: 08/03/23 05:13 Dose: 2.5 mg Documented By: MARYSOL Albuterol Sulfate (Albuterol Sulfate 90 Mcg 8 Gm Inhaler) 2 puff INHALE Q4H PRN PRN Reason: Shortness Of Breath Or Wheezing Albuterol/Ipratropium (Albuterol/Iprat 2.5/0.5mg 3 Ml Ampul.Neb) 3 ml INHALE RQ4H WHILE AWAKE [facility] Last Admin: 08/05/23 08:11 Dose: 3 ml Documented By: WILLIAM Atorvastatin Calcium (Atorvastatin Calcium 20 Mg Tablet) 20 mg PO BEDTIME [facility] Last Admin: 08/04/23 22:20 Dose: 20 mg Documented By: MEMO Azathioprine (Azathioprine 50 Mg Tablet) 100 mg PO DAILY [facility] Last Admin: 08/05/23 08:56 Dose: 100 mg Documented By: MILENA Budesonide (Budesonide 0.5 Mg/2 Ml Ampul.Neb) 0.5 mg INHALE RBID [facility] Last Admin: 08/05/23 08:11 Dose: 0.5 mg Documented By: WILLIAM Calcitonin [place] (Calcitonin,[place],Synth Nasal 3.7 Ml Bottle) 1 spray NOSTRIL-B DAILY [facility] Last Admin: 08/05/23 08:56 Dose: Not Given Documented By: MILENA Non-Admin Reason: Med Not Available Clonazepam (Clonazepam 1 Mg Tablet) 1 mg PO BID PRN PRN Reason: Anxiety Last Admin: 08/03/23 21:31 Dose: 1 mg Documented By: LIDIA Diltiazem HCl (Diltiazem Hcl Cd 180 Mg Cap.Er.24h) 360 mg PO DAILY [facility]; Protocol Last Admin: 08/05/23 08:47 Dose: 360 mg Documented By: MILENA Docusate Sodium (Docusate Sodium 100 Mg Capsule) 100 mg PO BID PRN PRN Reason: constipation Folic Acid (Folic Acid 1 Mg Tablet) 1 mg PO DAILY [facility] Last Admin: 08/05/23 08:47 Dose: 1 mg Documented By: MILENA Furosemide (Furosemide 40 Mg Tablet) 40 mg PO DAILY [facility]; Protocol Last Admin: 08/05/23 08:47 Dose: 40 mg Documented By: MILENA Gabapentin (Gabapentin 300 Mg Capsule) 300 mg PO BID [facility] Last Admin: 08/05/23 08:46 Dose: 300 mg Documented By: MILENA Glucose (Glucose Gel 15 Gm Gel..Gram.) 15 gm PO Q15M PRN; Protocol PRN Reason: per Hypoglycemia Standing Ord. Heparin Sodium (Porcine) (Heparin Sodium,Porcine 5,000 Unit/Ml Vial) 5,000 unit SUBCUT Q8H [facility] Last Admin: 08/05/23 08:48 Dose: 5,000 unit Documented By: MILENA Hydralazine HCl (Hydralazine Hcl 25 Mg Tablet) 25 mg PO TIDWM [facility]; Protocol Last Admin: 08/05/23 08:47 Dose: 25 mg Documented By: MILENA Dextrose (D10) 250 mls @ 750 mls/hr IV Q15M PRN; Protocol PRN Reason: per Hypoglycemia Standing Ord. Insulin Glargine (Insulin Glargine,Hum.Rec.Anlog 100 Unit/Ml 10 Ml Vial) 45 unit SUBCUT BEDTIME [facility] Last Admin: 08/04/23 22:21 Dose: 45 unit Documented By: MEMO Insulin Human Lispro (Insulin Lispro 100 Unit/Ml 3 Ml Vial) 0 unit SUBCUT QIDACHS [facility]; Protocol Last Admin: 08/05/23 07:47 Dose: Not Given Documented By: MILENA Non-Admin Reason: No Insulin Coverage Lactic Acid (Ammonium Lactate 12 % Lotion 226 Gm Bottle) 1 appl TOPICAL DAILY PRN; Protocol PRN Reason: Dry Skin Lamotrigine (Lamotrigine 25 Mg Tablet) 150 mg PO BID [facility] Last Admin: 08/05/23 08:47 Dose: 150 mg Documented By: MILENA Lidocaine (Lidocaine 4 % Patch Adh..Patch) 1 patch TRANSDERMA DAILY PRN PRN Reason: Pain Loratadine (Loratadine 10 Mg Tablet) 10 mg PO DAILY [facility] Last Admin: 08/05/23 08:47 Dose: 10 mg Documented By: MILENA Metformin HCl (Metformin Hcl Er 500 Mg Tab.Er.24h) 500 mg PO DAILY [facility] Last Admin: 08/05/23 08:47 Dose: 500 mg Documented By: MILENA Methadone HCl (Methadone Hcl 20 Mg/2 Ml Oral.Conc) 50 mg PO DAILY [facility] Last Admin: 08/05/23 08:47 Dose: 50 mg Documented By: MILENA Montelukast Sodium (Montelukast Sodium 10 Mg Tablet) 10 mg PO BEDTIME [facility] Last Admin: 08/04/23 22:20 Dose: 10 mg Documented By: MEMO Omeprazole (Omeprazole 40 Mg Capsule.Dr) 40 mg PO DAILY@0630 [facility] Last Admin: 08/05/23 04:16 Dose: 40 mg Documented By: MEMO Ondansetron HCl (Ondansetron Hcl 4 Mg/2 Ml Vial) 4 mg IVPUSH Q8H PRN PRN Reason: Nausea and Vomiting Last Admin: 08/05/23 04:20 Dose: 4 mg Documented By: N-RIVLA Polyethylene Glycol (Polyethylene Glycol 3350 17 Gm Powd.Pack) 17 gm PO DAILY PRN PRN Reason: constipation Prednisone (Prednisone 10 Mg Tablet) 30 mg PO DAILY [facility] Last Admin: 08/05/23 08:46 Dose: 30 mg Documented By: MILENA Roflumilast (Roflumilast 500 Mcg Tablet) 500 mcg PO DAILY [facility] Last Admin: 08/05/23 08:47 Dose: 500 mcg Documented By: MILENA Sodium Chloride (0.9 % Sodium Chloride Flush 3 Ml Syringe) 3 ml IVFLUSH QSHIFT [facility] Last Admin: 08/05/23 08:48 Dose: 3 ml Documented By: MILENA Tiotropium [place] (Tiotropium [place] 2.5 Mcg 1 Puff/2.5 Mcg Mist.Inhal) 2 puff INHALE RDAILY [facility] Last Admin: 08/05/23 08:11 Dose: 2 puff Documented By: WILLIAM Zolpidem Tartrate (Zolpidem Tartrate 5 Mg Tablet) 5 mg PO BEDTIME PRN PRN Reason: Sleep Labs 08/03/23 07:49 08/03/23 07:49 Labs: Laboratory Results - last 24 hr 08/04/23 08/04/23 08/04/23 11:41 16:37 21:06 POC Glucose 238 H 284 H 239 H 08/05/23 07:00 POC Glucose 78 Microbiology Microbiology Results: Microbiology 08/03/23 16:38 Gram Stain - Final Sputum - Expectorated Sputum Culture - Preliminary 08/02/23 14:20 Blood Culture - Preliminary Blood - Venous No growth after 48 hours. 08/02/23 13:36 Blood Culture - Preliminary Blood - Venous No growth after 48 hours. Assessment and Plan (1) Acute exacerbation of chronic obstructive airways disease: Status: Acute (2) Acute on chronic respiratory failure with hypoxia and hypercapnia: Status: Acute (3) CHITO (obstructive sleep apnea): Status: Acute Plan 53 year old female with history of chronic hypoxic and hypercarbic respiratory failure on 2 L nasal cannula and BiPAP at night, CHITO/OHS/asthma/COPD overlap, chronic methadone use, diabetes, recurrent admissions for respiratory failure d/t Acute on chronic hypercapnic and hypoxic respiratory failure + obstructive sleep apnea + obesity hypoventilatory syndrome. Continue BiPAP q.h.s. and PRN during the day Continue supplemental oxygen, 2 L at baseline bronchodilators by Neb continue iv solumedrol, change to Prednisone today Continue montelukast and Daliresp. Avoid sedative. Pulmonology recommendation noted Essential hypertension. Continue diltiazem and hydralazine. GERD. Continue PPI. HFpEF. CXR neg. Continue Lasix. Hyperlipidemia. Continue statin. Mental health, lamictal Type 2 diabetes mellitus. SSI, lantus, metformin and diabetic diet Morbid obesity, Weight loss advised Chronic opiate dependence. Continue methadone when confirmed. DVT prophylaxis: Heparin Code status: Full need for inpatient: acute hypoxic resp failure due to copd exacerbation requring bipap, iv sterid Quality Stroke Does the patient have a stroke diagnosis?: No VTE Prior VTE?: No VTE Risk Level:: Medical - moderate - high VTE Device Contraindication: Treatment Not Indicated VTE Drug Contraindication: N/A - Med Ordered
[2023-08-05 10:59] LABS: Glucose, Whole Blood 147 mg/dL (60-115)
--- NOTE | 2023-08-05 15:02 | MHC.CM.PN ---
EMR reviewed and per MD rounds pt is not medically cleared due to management of acute hypoxic respiratory failure and COPD exacerbation.
[2023-08-05 15:41] LABS: Glucose, Whole Blood 284 mg/dL (60-115)
[2023-08-05 15:46] LABS: ABG Base Excess 9.1 mmol/L; ABG HCO3 40 mmol/L (22-26); ABG pCO2 94 mmHg (32-45); ABG pH 7.23 (7.35-7.45); ABG pO2 66 mmHg (83-108)
--- NOTE | 2023-08-05 15:55 | PM.EVENT ---
Event Note Date of Service: 08/05/23 Event Note: Patient has become increasing lethargic, less responsive and has been on BiPAP most of the day. A stat ABG showed PH of 7.23 pCO2 of 94, PO2 66 on BiPAP. She seems tired and difficult to arouse and I have thus discussed care with the director of vital statistics and she will be transfered down to the ICU. Getting routine labs, CXR Time Spent With Patient Time: Total time managing care of this patient today ____ minutes.
[2023-08-05 16:20] LABS: Glucose, Whole Blood 299 mg/dL (60-115)
[2023-08-05 16:50] LABS: Hematocrit 37.6 % (37.0-47.0); Hemoglobin 11.5 g/dl (12.0-16.0); Mean Corpuscular HGB Conc 30.6 g/dl (31.0-35.0); Mean Corpuscular Hemoglobin 29.9 pg (27.0-33.0); Mean Corpuscular Volume 97.7 fL (80.0-98.0); Mean Platelet Volume 9.3 fL (9.4-12.3); NRBC Pct Auto 0.6 /100WBC (0.0-0.2); Platelet Count 225 X10*3/uL (160-400); Red Blood Count 3.85 X10*6/uL (4.20-5.50); Red Cell Distribution Width 15.2 % (11.0-16.0); White Blood Count 10.9 X10*3/uL (4.8-10.8)
[2023-08-05 17:10] LABS: ABG Base Excess 9.3 mmol/L; ABG HCO3 40 mmol/L (22-26); ABG pCO2 90 mmHg (32-45); ABG pH 7.25 (7.35-7.45); ABG pO2 62 mmHg (83-108)
[2023-08-05 17:19] LABS: Anion Gap 18 (12-20); Blood Urea Nitrogen 18 mg/dL (9-16); Calcium 9.3 mg/dL (8.4-10.2); Carbon Dioxide 31 mmol/L (22-29); Chloride 96 mmol/L (96-108); Creatinine Clr Calc Pharmacy 105.6; Estimated Glomerular Filt Rate > 60; Glucose Random 310 mg/dL (60-115); Potassium 4.6 mmol/L (3.3-5.1); Sodium 140 mmol/L (135-145)
[2023-08-05] MEDS: propofoL 200 MG/20 ML VIAL 100 MG IVPUSH (17:23)
[2023-08-05] MEDS: propofoL 1,000 MG/100 ML VIAL 15.95 MG IVCONT (17:23)
--- NOTE | 2023-08-05 17:26 | W.PM.CCHP ---
Procedures Date of Service Date of Service: 08/05/23 Intubation Intubation Comments: Patient with acute hypercapnic respiratory failure refractory to BiPAP support requiring emergent intubation with 7.5 cuffed ET tube under glide scope guidance with no immediate complications. X-ray for ET tube position is pending. Consent for Procedure: Emergent-no informed consent obtained Sedative: propofol Mg given: 100
--- NOTE | 2023-08-05 17:29 | PM.CCN ---
Critical Care Event Note Summary Date of Service: 08/05/23 Code activated: No Narrative: Patient admitted with acute on chronic hypoxic and hypercapnic respiratory failure in treated on telemetry, today in the afternoon with worsening CO2 retention refractory to BiPAP support requiring transfer to intensive care unit and intubation. Critical Care Time (minutes): 30
[2023-08-05] MEDS: Furosemide 40 MG/4 ML VIAL IVPUSH (17:48)
[2023-08-05 18:20] LABS: Glucose, Whole Blood 297 mg/dL (60-115)
[2023-08-05] MEDS: Insulin Lispro 100 UNIT/ML 3 ML VIAL SUBCUT (18:23)
[2023-08-05] MEDS: Midazolam HCl/PF 2 MG/2 ML VIAL 4 MG IVPUSH (18:24)
[2023-08-05 18:43] LABS: ABG Base Excess 9.4 mmol/L; ABG HCO3 37 mmol/L (22-26); ABG pCO2 60 mmHg (32-45); ABG pH 7.39 (7.35-7.45); ABG pO2 52 mmHg (83-108)
[2023-08-05] MEDS: Norepinephrine Bitartrate/D5W 8 MG/250 ML PLAST..BAG 8.31 MG IV (18:45)
--- NOTE | 2023-08-05 19:06 | PC.NURSE ---
Assumed care at approx 1640- pt. transfered to ICU from [facility] accompanied by RN and RT. Pt. on bipap 03/01 28%. Pt. lethargic/obtunded, arousing to light pain and nodding Y/N occasinally to questions. HR 100s, SBP 140s-160s with MAPs >65. Additional IV access aquired. Repeat ABG taken- see results. Decision made by MD to intubated. MD and RT at bedside- Pt. given 100 mg IVP prop. Pt. intubated at 1723- ETT 7.5 22 @ the lip. Propofol gtt. started and titrated per MAY. OGT placed by this RN. OGT and ETT placement verified via CXR- see report. Pt. asynchronous on vent, continuously coughing and desatting as low as 60s- RT at bedside. MD called, PRN versed ordered and adminstered per EMAR. ETT lavaged by RT for moderate thick branch in-line secretions. Pt. now synchronous with vent. Approx 1630, SBPs 70s-80s with MAPs <65, levophed gtt started and titrated per MAY. Oral care and repositioning Q2 performed. Plan of care ongoing Report given to shift supervisor rn RN.
[2023-08-05] MEDS: propofoL 1,000 MG/100 ML VIAL 26.58 MG IVCONT ×2 (20:13→23:41)
[2023-08-05 20:55] LABS: Glucose, Whole Blood 218 mg/dL (60-115)
[2023-08-05] MEDS: acetaZOLAMIDE sodium 500 MG VIAL IVPUSH (20:57)
[2023-08-05] MEDS: Chlorhexidine Gluc Oral Rinse 15 ML MOUTHWASH BUCCAL (20:57)
[2023-08-05] MEDS: Insulin Glargine,Hum.rec.anlog 100 UNIT/ML 10 ML VIAL 35 UNIT SUBCUT (20:58)
[2023-08-05 21:04] LABS: ABG Refer to POC result
[2023-08-05 21:05] LABS: ABG Refer to POC result
[2023-08-06] VITALS (53 sets, daily range): BP systolic 74–151; BP diastolic 41–82; PULSE 88–120; RESP 16–26; TEMP 34.6–38.6; O2SAT 90–98; BMI 38.1
[2023-08-06] MEDS: Heparin Sodium,Porcine 5,000 UNIT/ML VIAL 5000 UNIT SUBCUT ×3 (01:32→16:07)
[2023-08-06] MEDS: Midazolam HCl/PF 2 MG/2 ML VIAL IVPUSH (02:42)
[2023-08-06] MEDS: propofoL 1,000 MG/100 ML VIAL 26.58 MG IVCONT ×7 (03:02→22:53)
[2023-08-06] MEDS: Albuterol Sulfate (0.083%) 2.5 MG/3 ML VIAL.NEB INHALE (04:41)
[2023-08-06] MEDS: fentaNYL citrate/NS 1,000 MCG/100 ML PLAST..BAG 2.5 MCG IVCONT (05:18)
[2023-08-06 05:52] LABS: VBG Base Excess 12.2 mmol/L; VBG HCO3 35 mmol/L (22-26); VBG pCO2 40 mmHg; VBG pH 7.55 (7.32-7.43); VBG pO2 66 mmHg
[2023-08-06 05:53] LABS: MANUAL DIFF FLAG NO
[2023-08-06 05:55] LABS: Basophils Percent Auto 0.4 % (0-2); Eosinophils Percent Auto 0.4 % (0-4); Hematocrit 35.8 % (37.0-47.0); Hemoglobin 11.4 g/dl (12.0-16.0); Imm Gran Abs Auto 0.13 X10*3/uL (0.00-0.03); Imm Gran Pct Auto 1.6 % (0.0-0.4); Lymphocytes Percent Auto 12.7 % (20-40); Mean Corpuscular HGB Conc 31.8 g/dl (31.0-35.0); Mean Corpuscular Hemoglobin 29.8 pg (27.0-33.0); Mean Corpuscular Volume 93.5 fL (80.0-98.0); Mean Platelet Volume 8.9 fL (9.4-12.3); Monocytes Absolute Auto 0.3 X10*3/uL (0.1-1.2); Monocytes Percent Auto 3.4 % (2-11); Neutrophils Absolute Auto 6.6 x10*3/uL (2.0-8.3); Neutrophils Percent Auto 81.5 % (45-73); Platelet Count 211 X10*3/uL (160-400); Red Blood Count 3.83 X10*6/uL (4.20-5.50); Red Cell Distribution Width 14.6 % (11.0-16.0); White Blood Count 8.1 X10*3/uL (4.8-10.8)
[2023-08-06 06:00] LABS: NRBC Pct Auto 1.6 /100WBC (0.0-0.2)
[2023-08-06 06:25] LABS: Glucose, Whole Blood 122 mg/dL (60-115)
[2023-08-06] MEDS: Insulin Lispro 100 UNIT/ML 3 ML VIAL SUBCUT ×3 (06:28→23:58)
[2023-08-06 06:31] LABS: Alanine Aminotransferase 42 U/L (0-31); Albumin Level 3.8 g/dL (3.5-5.0); Alkaline Phosphatase 58 U/L (39-117); Anion Gap 16 (12-20); Aspartate Amino Transferase 21 U/L (5-31); Bilirubin Total 0.4 mg/dL (0.0-1.0); Blood Urea Nitrogen 16 mg/dL (9-16); Calcium 9.8 mg/dL (8.4-10.2); Carbon Dioxide 30 mmol/L (22-29); Chloride 98 mmol/L (96-108); Creatinine Clr Calc Pharmacy 109.1; Estimated Glomerular Filt Rate > 60; Glucose Random 146 mg/dL (60-115); Magnesium 1.5 mg/dL (1.6-2.6); Phosphorus 0.7 mg/dL (2.7-4.5); Potassium 2.7 mmol/L (3.3-5.1); Sodium 141 mmol/L (135-145); Total Protein 6.5 g/dL (6.5-8.0)
[2023-08-06 07:30] LABS: Venous Blood Gas Refer to POC result
[2023-08-06] MEDS: 0.9 % Sodium Chloride Flush 3 ML SYRINGE IVFLUSH ×3 (07:34→23:53)
[2023-08-06] MEDS: Potassium Phosphate/NS 15 MMOL/250 ML PLAST..BAG 62.5 MMOL IV ×4 (07:34→20:08)
[2023-08-06] MEDS: Potassium Chloride Packet 20 MEQ PACKET 40 MEQ PO (07:34)
[2023-08-06] MEDS: Magnesium Sulfate/H2O 2 GM/50 ML PIGGYBACK IV (07:34)
[2023-08-06] MEDS: Albuterol/Iprat 2.5/0.5MG 3 ML AMPUL.NEB INHALE ×4 (07:47→19:53)
--- NOTE | 2023-08-06 08:01 | PC.RT ---
post svn pt sxn lg amt creamy, a sample was obtained.
[2023-08-06] MEDS: acetaZOLAMIDE sodium 500 MG VIAL IVPUSH ×2 (09:52→20:28)
[2023-08-06] MEDS: lamoTRIgine 25 MG TABLET 150 MG PO ×2 (09:52→20:30)
[2023-08-06] MEDS: Famotidine/PF 20 MG/2 ML VIAL IVPUSH (09:52)
[2023-08-06] MEDS: Chlorhexidine Gluc Oral Rinse 15 ML MOUTHWASH BUCCAL ×3 (09:52→20:28)
[2023-08-06] MEDS: methADONE HCl 20 MG/2 ML ORAL.CONC 50 MG PO (09:54)
[2023-08-06] MEDS: Norepinephrine Bitartrate/D5W 8 MG/250 ML PLAST..BAG 9.97 MG IV (09:55)
[2023-08-06 11:52] LABS: Glucose, Whole Blood 110 mg/dL (60-115)
--- NOTE | 2023-08-06 12:37 | MHC.CLN ---
PT IS INTUBATED AND SEDATED DISCUSSED AT ROUNDS WITH PT TO START TF TODAY RECOMMEND GLUCERNA AT MAX GOAL RATE 30ML/HR TO PROVIDE 720KCALS (1422KCALS WITH SEDATION; 24KCALS/KG), 30G PROTEIN, 614ML FREE WATER FROM FORMULA START FORMULA AT 20ML/HR AND INCREASE BY 10ML Q 4 HRS UNTIL MAX GOAL IS ACHIEVED MONITOR TOLERANCE AND LYTES
--- NOTE | 2023-08-06 13:06 | PM.CCPN ---
Subjective Subjective Date of Service: 08/06/23 Interval History: 53-year-old lady with underlying morbid obesity, CHITO with hyperventilation syndrome with CO2 retention on supplemental oxygen at 3 L and nocturnal BiPAP, asthma/COPD overlap syndrome, diastolic heart failure, diabetes mellitus, opioid dependence on methadone with multiple admissions for respiratory failure admitted on 08/02/2023 with acute on chronic hypoxic and hypercapnic respiratory failure initially to telemetry michel, however on 08/05/2023 patient with worsening CO2 retention with poor improvement on BiPAP support requiring transfer to the intensive care unit and intubation. No events overnight. Critical Care Time (minutes): 60 Physical Exam Vital Signs: Vital Signs: Last Vital Signs Temp 99.5 F 08/06/23 12:55 Pulse 101 H 08/06/23 12:55 Resp 16 08/06/23 12:55 BP 105/61 08/06/23 12:55 Pulse Ox 90 L 08/06/23 12:55 O2 Del Method Mechanical Ventil ation 08/06/23 12:55 O2 Flow Rate 90 08/05/23 15:52 FiO2 25 08/06/23 12:55 BMI result Body Mass Index 38.1 Const: General: no acute distress and other (Sedated on the vent) Nutritional Appearance: obese Eyes: Sclerae: sclerae normal EOM: EOMs intact bilaterally Neck: Neck: Yes no lymphadenopathy, Yes trachea midline and Yes supple Resp: Auscultation: clear to auscultation bilaterally Cardio: Rate: tachycardic Rhythm: regular rhythm Heart sounds: no gallops, no murmurs and no rubs GI: Palpation (GI): Soft to palpation and Other GI palpation findings present ( Nontender) Auscultation: normal bowel sounds Extrem: General: Yes no pedal edema, No clubbing and No cyanosis Objective Data Labs 08/06/23 05:35 08/06/23 05:35 Labs: Laboratory Results - last 24 hr 08/05/23 08/05/23 08/05/23 15:38 15:40 16:12 WBC RBC Hgb Hct MCV MCH MCHC RDW Plt Count MPV Immature Gran % (Auto) Neut % (Auto) Lymph % (Auto) [place] % (Auto) Eos % (Auto) Baso % (Auto) Lymph # (Auto) [place] # (Auto) Eos # (Auto) Baso # (Auto) Abs Immat Gran (auto) Absolute Neuts (auto) Absolute Nucleated RBC Nucleated RBC % (auto) Smear Path Review O2 Saturation 90.0 ABG pH at Pt Temp 7.23 L ABG pCO2 at Pt Temp 94 H* ABG pO2 at Pt Temp 66 L ABG HCO3 40 H ABG Base Excess (Actual) 9.1 VBG pH VBG pCO2 VBG pO2 VBG HCO3 VBG O2 Saturation VBG Base Excess Sodium Potassium Chloride Carbon Dioxide Anion Gap BUN Creatinine Estim Creat Clear Calc Estimated GFR POC Glucose 284 H 299 H Random Glucose Calcium Phosphorus Magnesium Total Bilirubin AST ALT Alkaline Phosphatase Total Protein Albumin 08/05/23 08/05/23 08/05/23 16:23 17:03 17:51 WBC 10.9 H RBC 3.85 L Hgb 11.5 L Hct 37.6 MCV 97.7 MCH 29.9 MCHC 30.6 L RDW 15.2 Plt Count 225 MPV 9.3 L Immature Gran % (Auto) Neut % (Auto) Lymph % (Auto) [place] % (Auto) Eos % (Auto) Baso % (Auto) Lymph # (Auto) [place] # (Auto) Eos # (Auto) Baso # (Auto) Abs Immat Gran (auto) Absolute Neuts (auto) Absolute Nucleated RBC 0.060 H Nucleated RBC % (auto) 0.6 H Smear Path Review O2 Saturation 87.0 ABG pH at Pt Temp 7.25 L ABG pCO2 at Pt Temp 90 H* ABG pO2 at Pt Temp 62 L ABG HCO3 40 H ABG Base Excess (Actual) 9.3 VBG pH VBG pCO2 VBG pO2 VBG HCO3 VBG O2 Saturation VBG Base Excess Sodium 140 Potassium 4.6 D Chloride 96 Carbon Dioxide 31 H Anion Gap 18 BUN 18 H Creatinine 0.61 Estim Creat Clear Calc 105.6 Estimated GFR > 60 POC Glucose 297 H Random Glucose 310 H Calcium 9.3 Phosphorus Magnesium Total Bilirubin AST ALT Alkaline Phosphatase Total Protein Albumin 08/05/23 08/05/23 08/06/23 18:36 20:51 05:35 WBC 8.1 RBC 3.83 L Hgb 11.4 L Hct 35.8 L MCV 93.5 MCH 29.8 MCHC 31.8 RDW 14.6 Plt Count 211 MPV 8.9 L Immature Gran % (Auto) 1.6 H Neut % (Auto) 81.5 H Lymph % (Auto) 12.7 L [place] % (Auto) 3.4 Eos % (Auto) 0.4 Baso % (Auto) 0.4 Lymph # (Auto) 1.0 L [place] # (Auto) 0.3 Eos # (Auto) 0.0 Baso # (Auto) 0.0 Abs Immat Gran (auto) 0.13 H Absolute Neuts (auto) 6.6 Absolute Nucleated RBC 0.130 H Nucleated RBC % (auto) 1.6 H Smear Path Review SEE NOTE O2 Saturation 86.0 ABG pH at Pt Temp 7.39 ABG pCO2 at Pt Temp 60 H* ABG pO2 at Pt Temp 52 L ABG HCO3 37 H ABG Base Excess (Actual) 9.4 VBG pH VBG pCO2 VBG pO2 VBG HCO3 VBG O2 Saturation VBG Base Excess Sodium 141 Potassium 2.7 L* D Chloride 98 Carbon Dioxide 30 H Anion Gap 16 BUN 16 Creatinine 0.59 Estim Creat Clear Calc 109.1 Estimated GFR > 60 POC Glucose 218 H Random Glucose 146 H Calcium 9.8 Phosphorus 0.7 L* Magnesium 1.5 L Total Bilirubin 0.4 AST 21 ALT 42 H Alkaline Phosphatase 58 Total Protein 6.5 Albumin 3.8 08/06/23 08/06/23 08/06/23 05:44 06:21 11:43 WBC RBC Hgb Hct MCV MCH MCHC RDW Plt Count MPV Immature Gran % (Auto) Neut % (Auto) Lymph % (Auto) [place] % (Auto) Eos % (Auto) Baso % (Auto) Lymph # (Auto) [place] # (Auto) Eos # (Auto) Baso # (Auto) Abs Immat Gran (auto) Absolute Neuts (auto) Absolute Nucleated RBC Nucleated RBC % (auto) Smear Path Review O2 Saturation ABG pH at Pt Temp ABG pCO2 at Pt Temp ABG pO2 at Pt Temp ABG HCO3 ABG Base Excess (Actual) VBG pH 7.55 H VBG pCO2 40 VBG pO2 66 VBG HCO3 35 H VBG O2 Saturation 94.0 VBG Base Excess 12.2 Sodium Potassium Chloride Carbon Dioxide Anion Gap BUN Creatinine Estim Creat Clear Calc Estimated GFR POC Glucose 122 H 110 Random Glucose Calcium Phosphorus Magnesium Total Bilirubin AST ALT Alkaline Phosphatase Total Protein Albumin Microbiology Microbiology Results: Microbiology 08/03/23 16:38 Sputum - Expectorated Gram Stain - Final 08/03/23 16:38 Sputum - Expectorated Sputum Culture - Preliminary 08/02/23 14:20 Blood - Venous Blood Culture - Preliminary No growth after 48 hours. 08/02/23 13:36 Blood - Venous Blood Culture - Preliminary No growth after 48 hours. Progress Note: A&P Assessment and plan (1) Acute on chronic respiratory failure with hypoxia and hypercapnia: Status: Acute (2) Obesity hypoventilation syndrome: Status: Acute (3) COPD (chronic obstructive pulmonary disease): Status: Acute (4) Diastolic heart failure: Status: Acute (5) Type 2 diabetes mellitus: Status: Acute (6) Opioid dependence: Status: Acute (7) Obesity with alveolar hypoventilation: Status: Acute Plan Assessment: 53-year-old lady with underlying CHITO with obesity hyperventilation, asthma/COPD, obesity, diastolic heart failure admitted with acute on chronic hypoxic and hypercapnic respiratory failure now requiring ventilatory support. Plan: Neuro: No acute issues. Cardiac: Acute on chronic diastolic congestive heart failure improving with diuresis. Continue with diuresis. Pulmonary: Acute on chronic hypoxic and hypercapnic respiratory failure now requiring ventilatory support. Continue to titrate off as tolerated. Underlying CHITO with obesity hyperventilation and chronic supplemental oxygen dependence. Renal: Hypophosphatemia likely secondary to increased work of breathing previously, continue with phosphate repletion. Endo: No acute issues. GI: No acute issues. ID: No acute issues Heme/Onc: No acute issues. Psych: No acute issues. Underlying opioid dependence, continue methadone. Miscellaneous: No acute issues. Prophylaxis: Heparin, famotidine Diet: Tube feed Critical care time spent: 60 minutes Quality Stroke Does the patient have a stroke diagnosis?: No VTE Prior VTE?: No VTE Risk Level:: Medical - moderate - high VTE Device Contraindication: Treatment Not Indicated VTE Drug Contraindication: N/A - Med Ordered
--- NOTE | 2023-08-06 15:37 | MHC.CM.PN ---
PT REMAINS IN ICU ON VENTILATORY SUPPORT AND ON PRESSORS. [facility] UPDATED. CM WILL CONTINUE TO FOLLOW FOR DC PLAN.
[2023-08-06 18:13] LABS: Glucose, Whole Blood 175 mg/dL (60-115)
[2023-08-06] MEDS: Midazolam HCl/PF 2 MG/2 ML VIAL 4 MG IVPUSH (20:06)
[2023-08-06 20:17] LABS: Albumin Level 3.4 g/dL (3.5-5.0); Anion Gap 15 (12-20); Blood Urea Nitrogen 13 mg/dL (9-16); Calcium 9.1 mg/dL (8.4-10.2); Carbon Dioxide 29 mmol/L (22-29); Chloride 102 mmol/L (96-108); Creatinine Clr Calc Pharmacy 128.9; Estimated Glomerular Filt Rate > 60; Glucose Random 141 mg/dL (60-115); Magnesium 1.7 mg/dL (1.6-2.6); Phosphorus 4.1 mg/dL (2.7-4.5); Potassium 3.5 mmol/L (3.3-5.1); Sodium 142 mmol/L (135-145)
[2023-08-06 20:28] LABS: Glucose, Whole Blood 132 mg/dL (60-115)
[2023-08-06] MEDS: Insulin Glargine,Hum.rec.anlog 100 UNIT/ML 10 ML VIAL 35 UNIT SUBCUT (20:34)
[2023-08-06 23:55] LABS: Glucose, Whole Blood 128 mg/dL (60-115)
[2023-08-07] VITALS (49 sets, daily range): BP systolic 91–140; BP diastolic 43–95; PULSE 20–147; RESP 16–39; TEMP 34.8–39.1; O2SAT 88–98; BMI 38.8
[2023-08-07] MEDS: Heparin Sodium,Porcine 5,000 UNIT/ML VIAL 5000 UNIT SUBCUT ×3 (00:20→18:14)
[2023-08-07] MEDS: propofoL 1,000 MG/100 ML VIAL 26.58 MG IVCONT ×2 (02:08→05:20)
[2023-08-07] MEDS: fentaNYL citrate/NS 1,000 MCG/100 ML PLAST..BAG 2.5 MCG IVCONT (02:32)
[2023-08-07] MEDS: Albuterol Sulfate (0.083%) 2.5 MG/3 ML VIAL.NEB INHALE (04:51)
[2023-08-07] MEDS: Midazolam HCl/PF 2 MG/2 ML VIAL 4 MG IVPUSH (05:16)
[2023-08-07 05:34] LABS: VBG Base Excess 7.6 mmol/L; VBG HCO3 33 mmol/L (22-26); VBG pCO2 55 mmHg; VBG pH 7.38 (7.32-7.43); VBG pO2 42 mmHg
[2023-08-07 05:41] LABS: MANUAL DIFF FLAG NO
[2023-08-07 05:42] LABS: Basophils Percent Auto 0.6 % (0-2); Eosinophils Absolute Auto 0.1 X10*3/uL (0.0-0.4); Eosinophils Percent Auto 1.1 % (0-4); Hematocrit 34.3 % (37.0-47.0); Hemoglobin 10.9 g/dl (12.0-16.0); Imm Gran Pct Auto 3.8 % (0.0-0.4); Lymphocytes Absolute Auto 0.8 X10*3/uL (1.2-4.9); Lymphocytes Percent Auto 15.4 % (20-40); Mean Corpuscular HGB Conc 31.8 g/dl (31.0-35.0); Mean Corpuscular Hemoglobin 30.7 pg (27.0-33.0); Mean Corpuscular Volume 96.6 fL (80.0-98.0); Monocytes Absolute Auto 0.2 X10*3/uL (0.1-1.2); Monocytes Percent Auto 4.2 % (2-11); Neutrophils Absolute Auto 3.9 x10*3/uL (2.0-8.3); Neutrophils Percent Auto 74.9 % (45-73); Platelet Count 183 X10*3/uL (160-400); Red Blood Count 3.55 X10*6/uL (4.20-5.50); Red Cell Distribution Width 15.3 % (11.0-16.0); White Blood Count 5.3 X10*3/uL (4.8-10.8)
[2023-08-07 05:45] LABS: Venous Blood Gas Refer to POC result
[2023-08-07 05:51] LABS: NRBC Pct Auto 3.2 /100WBC (0.0-0.2)
[2023-08-07 05:57] LABS: Albumin Level 3.4 g/dL (3.5-5.0); Anion Gap 14 (12-20); Blood Urea Nitrogen 9 mg/dL (9-16); Calcium 9.5 mg/dL (8.4-10.2); Carbon Dioxide 30 mmol/L (22-29); Chloride 101 mmol/L (96-108); Estimated Glomerular Filt Rate > 60; Glucose Random 123 mg/dL (60-115); Magnesium 1.6 mg/dL (1.6-2.6); Phosphorus 3.5 mg/dL (2.7-4.5); Potassium 3.7 mmol/L (3.3-5.1); Sodium 141 mmol/L (135-145)
[2023-08-07 06:00] LABS: Glucose, Whole Blood 129 mg/dL (60-115)
[2023-08-07] MEDS: Insulin Lispro 100 UNIT/ML 3 ML VIAL SUBCUT ×3 (06:05→18:20)
[2023-08-07] MEDS: Albuterol/Iprat 2.5/0.5MG 3 ML AMPUL.NEB INHALE ×4 (07:57→19:34)
[2023-08-07] MEDS: propofoL 1,000 MG/100 ML VIAL 21.26 MG IVCONT (09:03)
[2023-08-07] MEDS: methADONE HCl 20 MG/2 ML ORAL.CONC 50 MG PO (09:09)
[2023-08-07] MEDS: Chlorhexidine Gluc Oral Rinse 15 ML MOUTHWASH BUCCAL ×3 (09:10→20:12)
[2023-08-07] MEDS: Furosemide 40 MG/4 ML VIAL IVPUSH (09:10)
[2023-08-07] MEDS: 0.9 % Sodium Chloride Flush 3 ML SYRINGE IVFLUSH ×2 (09:16→15:31)
[2023-08-07] MEDS: acetaZOLAMIDE sodium 500 MG VIAL IVPUSH ×2 (09:17→20:11)
[2023-08-07] MEDS: Famotidine/PF 20 MG/2 ML VIAL IVPUSH (09:17)
[2023-08-07] MEDS: lamoTRIgine 25 MG TABLET 150 MG PO ×2 (09:21→20:13)
--- NOTE | 2023-08-07 09:46 | P.PNCC_ITS ---
Subjective Subjective Date of Service: 08/07/23 Interval History: 53-year-old lady with underlying morbid obesity, CHITO with hyperventilation syndrome with CO2 retention on supplemental oxygen at 3 L and nocturnal BiPAP, asthma/COPD overlap syndrome, diastolic heart failure, diabetes mellitus, opioid dependence on methadone with multiple admissions for respiratory failure admitted on 08/02/2023 with acute on chronic hypoxic and hypercapnic respiratory failure initially to telemetry michel, however on 08/05/2023 patient with worsening CO2 retention with poor improvement on BiPAP support requiring transfer to the intensive care unit and intubation. No events overnight. Critical Care Time (minutes): 60 Physical Exam 2 Vital Signs: Vital Signs: Last Vital Signs Temp 100.9 F H 08/07/23 09:00 Pulse 121 H 08/07/23 09:37 Resp 18 08/07/23 09:36 BP 108/65 08/07/23 09:10 Pulse Ox 94 08/07/23 09:00 O2 Del Method Mechanical Ventil ation 08/07/23 09:00 O2 Flow Rate 90 08/05/23 15:52 FiO2 30 08/07/23 09:00 BMI result Body Mass Index 38.8 Const: General: no acute distress and other (Sedated on the vent) N utritional Appearance: obese Eyes: Sclerae: sclerae normal EOM: EOMs intact bilaterally Neck: Neck: Yes no lymphadenopathy, Yes trachea midline and Yes supple Resp: Effort & Inspection: normal respiratory effort and no respiratory distress Auscultation: clear to auscultation bilaterally Cardio: Rate: tachycardic Rhythm: regular rhythm Heart sounds: no gallops, no murmurs and no rubs GI: Palpation (GI): Soft to palpation and Other GI palpation findings present ( Nontender) Auscultation: normal bowel sounds Extrem: General: No clubbing, No cyanosis and Yes edema (Trace bilateral) Objective Data Labs 08/07/23 05:16 08/07/23 05:16 Labs: Laboratory Results - last 24 hr 08/06/23 08/06/23 08/06/23 11:43 17:39 19:40 WBC RBC Hgb Hct MCV MCH MCHC RDW Plt Count MPV Immature Gran % (Auto) Neut % (Auto) Lymph % (Auto) [place] % (Auto) Eos % (Auto) Baso % (Auto) Lymph # (Auto) [place] # (Auto) Eos # (Auto) Baso # (Auto) Abs Immat Gran (auto) Absolute Neuts (auto) Absolute Nucleated RBC Nucleated RBC % (auto) VBG pH VBG pCO2 VBG pO2 VBG HCO3 VBG O2 Saturation VBG Base Excess Sodium 142 Potassium 3.5 D Chloride 102 Carbon Dioxide 29 Anion Gap 15 BUN 13 Creatinine 0.50 Estim Creat Clear Calc 128.9 Estimated GFR > 60 POC Glucose 110 175 H Random Glucose 141 H Calcium 9.1 D Phosphorus 4.1 Magnesium 1.7 Albumin 3.4 L 08/06/23 08/06/23 08/07/23 20:24 23:48 05:16 WBC 5.3 RBC 3.55 L Hgb 10.9 L Hct 34.3 L MCV 96.6 MCH 30.7 MCHC 31.8 RDW 15.3 Plt Count 183 MPV 9.0 L Immature Gran % (Auto) 3.8 H Neut % (Auto) 74.9 H Lymph % (Auto) 15.4 L [place] % (Auto) 4.2 Eos % (Auto) 1.1 Baso % (Auto) 0.6 Lymph # (Auto) 0.8 L [place] # (Auto) 0.2 Eos # (Auto) 0.1 Baso # (Auto) 0.0 Abs Immat Gran (auto) 0.20 H Absolute Neuts (auto) 3.9 Absolute Nucleated RBC 0.170 H Nucleated RBC % (auto) 3.2 H VBG pH VBG pCO2 VBG pO2 VBG HCO3 VBG O2 Saturation VBG Base Excess Sodium 141 Potassium 3.7 Chloride 101 Carbon Dioxide 30 H Anion Gap 14 BUN 9 Creatinine 0.47 L Estim Creat Clear Calc 137.0 Estimated GFR > 60 POC Glucose 132 H 128 H Random Glucose 123 H Calcium 9.5 Phosphorus 3.5 Magnesium 1.6 Albumin 3.4 L 08/07/23 08/07/23 05:26 05:56 WBC RBC Hgb Hct MCV MCH MCHC RDW Plt Count MPV Immature Gran % (Auto) Neut % (Auto) Lymph % (Auto) [place] % (Auto) Eos % (Auto) Baso % (Auto) Lymph # (Auto) [place] # (Auto) Eos # (Auto) Baso # (Auto) Abs Immat Gran (auto) Absolute Neuts (auto) Absolute Nucleated RBC Nucleated RBC % (auto) VBG pH 7.38 VBG pCO2 55 VBG pO2 42 VBG HCO3 33 H VBG O2 Saturation 69.0 VBG Base Excess 7.6 Sodium Potassium Chloride Carbon Dioxide Anion Gap BUN Creatinine Estim Creat Clear Calc Estimated GFR POC Glucose 129 H Random Glucose Calcium Phosphorus Magnesium Albumin Microbiology Microbiology Results: Microbiology 08/03/23 16:38 Sputum - Expectorated Gram Stain - Final 08/03/23 16:38 Sputum - Expectorated Sputum Culture - Preliminary 08/02/23 14:20 Blood - Venous Blood Culture - Preliminary No growth after 48 hours. 08/02/23 13:36 Blood - Venous Blood Culture - Preliminary No growth after 48 hours. Progress Note: A&P Assessment and plan (1) Opioid dependence: Status: Acute (2) Type 2 diabetes mellitus: Status: Acute (3) Diastolic heart failure: Status: Acute (4) Acute exacerbation of chronic obstructive airways disease: Status: Acute (5) Acute on chronic respiratory failure with hypoxia and hypercapnia: Status: Acute (6) CHITO (obstructive sleep apnea): Status: Acute (7) Obesity hypoventilation syndrome: Status: Acute Plan Assessment: 53-year-old lady with underlying CHITO with obesity hyperventilation, asthma/COPD, obesity, diastolic heart failure admitted with acute on chronic hypoxic and hypercapnic respiratory failure now requiring ventilatory support. Plan: Neuro: No acute issues. Cardiac: Acute on chronic diastolic congestive heart failure improving with diuresis. Continue with diuresis. Pulmonary: Acute on chronic hypoxic and hypercapnic respiratory failure now requiring ventilatory support. Continue to titrate off as tolerated. Underlying CHITO with obesity hyperventilation and chronic supplemental oxygen dependence. Renal: No acute issues. Endo: No acute issues. GI: No acute issues. ID: No acute issues Heme/Onc: No acute issues. Psych: No acute issues. Underlying opioid dependence, continue methadone. Miscellaneous: No acute issues. Prophylaxis: Heparin, famotidine Diet: Tube feed Critical care time spent: 60 minutes Quality Stroke Does the patient have a stroke diagnosis?: No VTE Prior VTE?: No VTE Risk Level:: Medical - moderate - high VTE Device Contraindication: Treatment Not Indicated VTE Drug Contraindication: N/A - Med Ordered
--- NOTE | 2023-08-07 09:52 | P.CDIM_ITS ---
PROVIDER RESPONSE TEXT: To clarify, the appropriate diagnosis supported by the clinical indicators: Hypokalemia QUERY TEXT: PHYSICIAN'S DOCUMENTATION REQUEST Date of Query: 08/07/2023 08:30 AM EDT Patient Name: Anju Tanner I Admit Date: 08/03/2023 Dear Rasta Geller MD, A review of the medical record indicates additional documentation may be needed. Please review below and update the documentation accordingly. Clinical Indicators: Potassium level on 08/06/23: 2.7 Treated with Kphos 15 mmol in 250 mls @ 62.5 mls/hr IV Q4H, 4 bags ordered Potassium level on 08/05/26: 3.5 Based on the above, could you clarify the appropriate diagnosis, if significant, that supports the ab ove abnormalities and additional evaluation, monitoring, and/or treatment rendered: Hypokalemia Labs indicate a diagnosis of (please specify) Other (explain) Clinically unable to determine (explain) Thank you, Felicity Bowman RN Use of terms such as suspected, likely, concern for, or probable (associated with a specific diagnosi s that is being evaluated, monitored, or treated as if it exists) are acceptable and can be coded in the inpatient se tting, when documented at the time of discharge. Please use your independent medical judgment in providing your response. THIS QUERY IS PART OF THE PERMANENT MEDICAL RECORD
--- NOTE | 2023-08-07 09:52 | P.CDIM_ITS ---
PROVIDER RESPONSE TEXT: To clarify, the appropriate diagnosis supported by the clinical indicators: Hypomagnesiumemia QUERY TEXT: PHYSICIAN'S DOCUMENTATION REQUEST Date of Query: 08/07/2023 08:34 AM EDT Patient Name: Anju Tanner I Admit Date: 08/03/2023 Dear Rasta Geller MD, A review of the medical record indicates additional documentation may be needed. Please review below and update the documentation accordingly. Clinical Indicators: Magnesium on 08/06/23: 1.5 Treated with Magnesium Sulfate 2 gm in 50 mls @ 25 mls IV once Magnesium on 08/06/23: 1.7 Based on the above, could you clarify the appropriate diagnosis, if significant, that supports the ab ove abnormalities and additional evaluation, monitoring, and/or treatment rendered: Hypomagnesiumemia Labs indicate a diagnosis of (please specify) Other (explain) Clinically unable to determine (explain) Thank you, Felicity Bowman RN Use of terms such as suspected, likely, concern for, or probable (associated with a specific diagnosi s that is being evaluated, monitored, or treated as if it exists) are acceptable and can be coded in the inpatient se tting, when documented at the time of discharge. Please use your independent medical judgment in providing your response. THIS QUERY IS PART OF THE PERMANENT MEDICAL RECORD
--- NOTE | 2023-08-07 10:31 | PC.NURSE ---
Addendum entered by Jaosn Paris RN 08/07/23 14:50: Patient changed over to Presedex - tolerating well. Started on cardizem via OG tube - HR improved to <120, ST. T-max 102 - Dr Geller aware. Started new abx. Addendum entered by Jason Paris RN 08/07/23 10:42: Dr Geller attempt to change to PS, but not tolerating well, back to AC. Temp up to 101.5. Dr Geller aware. New plan to try presedex for sedation while weaning. Original Note: Sedation vacation (see MAR for titrations). Starting to look / track / respond to verbal stimuli. Not following directions yet. HR 140to 150, RR up to 30. Dr Geller aware - plan to extubate. Respiratory called.
[2023-08-07] MEDS: dexmedeTOMIDidine HCL/NS 400 MCG/100 ML INFUS..BTL 22.53 MCG IVCONT ×2 (11:19→20:50)
[2023-08-07 11:45] LABS: Glucose, Whole Blood 176 mg/dL (60-115)
[2023-08-07] MEDS: cefTRIAXone sodium 1 GM in 0.9 % Sodium Chloride 50 ML IV (11:45)
--- NOTE | 2023-08-07 12:02 | MHC.CLN ---
F/U PT REMAINS INTUBATED AND SEDATED DISCUSSED AT ROUNDS WITH MD-PLAN TO POSSIBLY EXTUBATE TODAY PT RECEIVING GLUCERNA AT MAX GOAL RATE 30ML/HR WITH 120ML FREE WATER Q 8 HRS PROVIDES 720KCALS (1422KCALS WITH SEDATION; 24KCALS/KG), 30G PROTEIN, 974ML TOTAL FREE WATER FROM FORMULA AND FLUSHES MONITOR TOLERANCE AND LYTES FOLLOWING WITH TEAM
[2023-08-07] MEDS: dilTIAZem HCL 60 MG TABLET PO ×3 (12:17→20:13)
--- NOTE | 2023-08-07 12:37 | MHC.CM.PN ---
Pt now in ICU on ventilatory support d/t respiratory fatigue. Pt with chronic lung dz on home O2. CM to follow for d/c planning needs - pt active w/[facility].
[2023-08-07] MEDS: dexmedeTOMIDidine HCL/NS 400 MCG/100 ML INFUS..BTL 13.52 MCG IVCONT (15:35)
[2023-08-07 18:12] LABS: Glucose, Whole Blood 184 mg/dL (60-115)
[2023-08-07] MEDS: Norepinephrine Bitartrate/D5W 8 MG/250 ML PLAST..BAG 3.32 MG IV (19:16)
[2023-08-07] MEDS: Acetaminophen 325 MG TABLET 975 MG PO (19:26)
[2023-08-07 20:07] LABS: Glucose, Whole Blood 141 mg/dL (60-115)
[2023-08-07] MEDS: Insulin Glargine,Hum.rec.anlog 100 UNIT/ML 10 ML VIAL 35 UNIT SUBCUT (20:12)
[2023-08-08] VITALS (37 sets, daily range): BP systolic 106–177; BP diastolic 59–84; PULSE 90–128; RESP 14–36; TEMP 33.8–38.4; O2SAT 88–95
[2023-08-08 00:26] LABS: Glucose, Whole Blood 180 mg/dL (60-115)
[2023-08-08] MEDS: Insulin Lispro 100 UNIT/ML 3 ML VIAL SUBCUT ×4 (00:32→18:02)
[2023-08-08] MEDS: 0.9 % Sodium Chloride Flush 3 ML SYRINGE IVFLUSH ×2 (00:33→07:54)
[2023-08-08] MEDS: Heparin Sodium,Porcine 5,000 UNIT/ML VIAL 5000 UNIT SUBCUT ×3 (00:34→16:10)
[2023-08-08] MEDS: dexmedeTOMIDidine HCL/NS 400 MCG/100 ML INFUS..BTL 22.53 MCG IVCONT (00:36)
[2023-08-08] MEDS: dexmedeTOMIDidine HCL/NS 400 MCG/100 ML INFUS..BTL 27.03 MCG IVCONT (04:10)
[2023-08-08 05:11] LABS: VBG Base Excess 4.6 mmol/L; VBG HCO3 28 mmol/L (22-26); VBG pCO2 37 mmHg; VBG pH 7.48 (7.32-7.43); VBG pO2 44 mmHg
[2023-08-08 05:13] LABS: Venous Blood Gas Refer to POC result
[2023-08-08 05:28] LABS: Hematocrit 39.3 % (37.0-47.0); Hemoglobin 12.7 g/dl (12.0-16.0); Mean Corpuscular HGB Conc 32.3 g/dl (31.0-35.0); Mean Corpuscular Hemoglobin 29.6 pg (27.0-33.0); Mean Corpuscular Volume 91.6 fL (80.0-98.0); Mean Platelet Volume 9.3 fL (9.4-12.3); PLT CLUMP 1; Red Blood Count 4.29 X10*6/uL (4.20-5.50); Red Cell Distribution Width 15.2 % (11.0-16.0)
[2023-08-08 05:34] LABS: Albumin Level 3.3 g/dL (3.5-5.0); Anion Gap 14 (12-20); Blood Urea Nitrogen 8 mg/dL (9-16); Calcium 9.5 mg/dL (8.4-10.2); Carbon Dioxide 27 mmol/L (22-29); Chloride 100 mmol/L (96-108); Creatinine Clr Calc Pharmacy 118.2; Estimated Glomerular Filt Rate > 60; Glucose Random 179 mg/dL (60-115); Magnesium 1.4 mg/dL (1.6-2.6); Phosphorus 3.5 mg/dL (2.7-4.5); Potassium 3.4 mmol/L (3.3-5.1); Sodium 138 mmol/L (135-145)
[2023-08-08 05:35] LABS: NRBC Pct Auto 1.5 /100WBC (0.0-0.2); White Blood Count 4.6 X10*3/uL (4.8-10.8)
[2023-08-08 05:36] LABS: Platelet Count 170 X10*3/uL (160-400)
[2023-08-08 05:48] LABS: Band Neutrophils Percent 8 % (3-5); Lymphocytes Absolute Manual 0.6 X10*3/uL (1.2-4.9); Lymphocytes Percent Manual 14 % (20-40); Monocytes Absolute Manual 0.2 X10*3/uL (0.1-1.2); Monocytes Percent Manual 4 % (2-11); Myelocytes Percent 1 %; Neutrophils Absolute Manual 3.7 X10*3/uL (2.0-8.3); Neutrophils Percent Manual 73 % (45-73); RBC Morphology NORMAL
[2023-08-08 05:52] LABS: Burr Cells 1+ (0-2) /OIF; Ovalocytes 1+ (5-14) /OIF
[2023-08-08 05:53] LABS: Platelet Estimate NORMAL (NORMAL); Platelet Morphology Comment NORMAL; Polychromasia 1+ (0-2) /OIF
[2023-08-08] MEDS: Magnesium Sulfate/H2O 2 GM/50 ML PIGGYBACK IV ×2 (06:28→21:03)
[2023-08-08] MEDS: Chlorhexidine Gluc Oral Rinse 15 ML MOUTHWASH BUCCAL ×3 (07:52→20:55)
[2023-08-08] MEDS: dexmedeTOMIDidine HCL/NS 400 MCG/100 ML INFUS..BTL 31.54 MCG IVCONT (07:52)
[2023-08-08] MEDS: lamoTRIgine 25 MG TABLET 150 MG PO ×2 (07:53→20:55)
[2023-08-08] MEDS: Famotidine/PF 20 MG/2 ML VIAL IVPUSH (07:53)
[2023-08-08] MEDS: dilTIAZem HCL 60 MG TABLET PO ×4 (07:53→20:55)
[2023-08-08] MEDS: acetaZOLAMIDE sodium 500 MG VIAL IVPUSH ×2 (07:54→20:55)
[2023-08-08] MEDS: methADONE HCl 20 MG/2 ML ORAL.CONC 50 MG PO (07:54)
[2023-08-08] MEDS: Albuterol/Iprat 2.5/0.5MG 3 ML AMPUL.NEB INHALE ×4 (08:42→18:50)
[2023-08-08] MEDS: Albumin Human 25 % 100 ML IV ×2 (09:47→15:42)
--- NOTE | 2023-08-08 11:44 | PM.CCPN ---
Subjective Subjective Date of Service: 08/08/23 Interval History: 53-year-old lady with underlying morbid obesity, CHITO with hyperventilation syndrome with CO2 retention on supplemental oxygen at 3 L and nocturnal BiPAP, asthma/COPD overlap syndrome, diastolic heart failure, diabetes mellitus, opioid dependence on methadone with multiple admissions for respiratory failure admitted on 08/02/2023 with acute on chronic hypoxic and hypercapnic respiratory failure initially to telemetry michel, however on 08/05/2023 patient with worsening CO2 retention with poor improvement on BiPAP support requiring transfer to the intensive care unit and intubation. No events overnight. Doing well on pressure support, however poor arousal with sedation vacation. Critical Care Time (minutes): 60 Physical Exam Vital Signs: Vital Signs: Last Vital Signs Temp 100.6 F H 08/08/23 11:00 Pulse 111 H 08/08/23 11:00 Resp 22 H 08/08/23 11:00 BP 134/72 08/08/23 11:00 Pulse Ox 90 L 08/08/23 11:00 O2 Del Method Mechanical Ventil ation 08/08/23 11:00 O2 Flow Rate 90 08/05/23 15:52 FiO2 30 08/08/23 11:00 BMI result Body Mass Index 38.8 Const: General: no acute distress and other (Poor arousal with sedation vacation) Eyes: Sclerae: sclerae normal EOM: EOMs intact bilaterally Neck: Neck: Yes no lymphadenopathy, Yes trachea midline and Yes supple Resp: Auscultation: clear to auscultation bilaterally Cardio: Rate: tachycardic Rhythm: regular rhythm Heart sounds: no gallops, no murmurs and no rubs GI: Palpation (GI): Soft to palpation and Other GI palpation findings present ( Nontender) Auscultation: normal bowel sounds Extrem: General: Yes no pedal edema, No clubbing and No cyanosis Objective Data Labs 08/08/23 05:03 08/08/23 05:03 Labs: Laboratory Results - last 24 hr 08/07/23 08/07/23 08/07/23 11:42 18:08 20:04 WBC RBC Hgb Hct MCV MCH MCHC RDW Plt Count MPV Immature Gran % (Auto) Neut % (Auto) Lymph % (Auto) [place] % (Auto) Eos % (Auto) Baso % (Auto) Lymph # (Auto) [place] # (Auto) Eos # (Auto) Baso # (Auto) Abs Immat Gran (auto) Absolute Neuts (auto) Absolute Nucleated RBC Nucleated RBC % (auto) Neutrophils % (Manual) Band Neutrophils % Lymphocytes % (Manual) Monocytes % (Manual) Myelocytes % Abs Neuts (Manual) Lymphocytes # (Manual) Monocytes # (Manual) Platelet Estimate Plt Morphology Comment RBC Morphology Polychromasia Ovalocytes [place] Cells VBG pH VBG pCO2 VBG pO2 VBG HCO3 VBG O2 Saturation VBG Base Excess Sodium Potassium Chloride Carbon Dioxide Anion Gap BUN Creatinine Estim Creat Clear Calc Estimated GFR POC Glucose 176 H 184 H 141 H Random Glucose Calcium Phosphorus Magnesium Albumin 08/08/23 08/08/23 00:21 05:03 WBC 4.6 L RBC 4.29 D Hgb 12.7 Hct 39.3 MCV 91.6 D MCH 29.6 MCHC 32.3 RDW 15.2 Plt Count 170 MPV 9.3 L Immature Gran % (Auto) Cancelled Neut % (Auto) Cancelled Lymph % (Auto) Cancelled [place] % (Auto) Cancelled Eos % (Auto) Cancelled Baso % (Auto) Cancelled Lymph # (Auto) Cancelled [place] # (Auto) Cancelled Eos # (Auto) Cancelled Baso # (Auto) Cancelled Abs Immat Gran (auto) Cancelled Absolute Neuts (auto) Cancelled Absolute Nucleated RBC 0.070 H Nucleated RBC % (auto) 1.5 H Neutrophils % (Manual) 73 Band Neutrophils % 8 H Lymphocytes % (Manual) 14 L Monocytes % (Manual) 4 Myelocytes % 1 Abs Neuts (Manual) 3.7 Lymphocytes # (Manual) 0.6 L Monocytes # (Manual) 0.2 Platelet Estimate NORMAL Plt Morphology Comment NORMAL RBC Morphology NORMAL Polychromasia 1+ (0-2) Ovalocytes 1+ (5-14) [place] Cells 1+ (0-2) VBG pH 7.48 H VBG pCO2 37 VBG pO2 44 VBG HCO3 28 H VBG O2 Saturation 75.0 VBG Base Excess 4.6 Sodium 138 Potassium 3.4 Chloride 100 Carbon Dioxide 27 Anion Gap 14 BUN 8 L Creatinine 0.55 Estim Creat Clear Calc 118.2 Estimated GFR > 60 POC Glucose 180 H Random Glucose 179 H Calcium 9.5 Phosphorus 3.5 Magnesium 1.4 L* Albumin 3.3 L Microbiology Microbiology Results: Microbiology 08/02/23 14:20 Blood - Venous Blood Culture - Final No growth after 5 days. 08/02/23 13:36 Blood - Venous Blood Culture - Final No growth after 5 days. 08/03/23 16:38 Sputum - Expectorated Gram Stain - Final 08/03/23 16:38 Sputum - Expectorated Sputum Culture - Preliminary Progress Note: A&P Assessment and plan (1) Opioid dependence: Status: Acute (2) Type 2 diabetes mellitus: Status: Acute (3) Diastolic heart failure: Status: Acute (4) Acute on chronic respiratory failure with hypoxia and hypercapnia: Status: Acute (5) Obesity hypoventilation syndrome: Status: Acute (6) CHITO (obstructive sleep apnea): Status: Acute (7) COPD (chronic obstructive pulmonary disease): Status: Acute Plan Assessment: 53-year-old lady with underlying CHITO with obesity hyperventilation, asthma/COPD, obesity, diastolic heart failure admitted with acute on chronic hypoxic and hypercapnic respiratory failure now requiring ventilatory support. Plan: Neuro: Poor arousal with sedation vacation, will decrease methadone. Cardiac: Acute on chronic diastolic congestive heart failure improving with diuresis. Continue with diuresis. Pulmonary: Acute on chronic hypoxic and hypercapnic respiratory failure now requiring ventilatory support. Continue to titrate off as tolerated. Underlying CHITO with obesity hyperventilation and chronic supplemental oxygen dependence. Renal: No acute issues. Endo: No acute issues. GI: No acute issues. ID: No acute issues Heme/Onc: No acute issues. Psych: No acute issues. Underlying opioid dependence, continue methadone. Miscellaneous: No acute issues. Prophylaxis: Heparin, famotidine Diet: Tube feed Critical care time spent: 60 minutes Quality Stroke Does the patient have a stroke diagnosis?: No VTE Prior VTE?: No VTE Risk Level:: Medical - moderate - high VTE Device Contraindication: Treatment Not Indicated VTE Drug Contraindication: N/A - Med Ordered
[2023-08-08 12:17] LABS: Glucose, Whole Blood 199 mg/dL (60-115)
--- NOTE | 2023-08-08 12:26 | MHC.CLN ---
F/U PT REMAINS INTUBATED NOTED PROPOFOL OFF AT THIS TIME DISCUSSED AT ROUNDS WITH PT RECEIVING GLUCERNA AT MAX GOAL RATE 30ML/HR WITH 120ML FREE WATER Q 8 HRS PROVIDES 720KCALS (1422KCALS WITH SEDATION; 24KCALS/KG), 30G PROTEIN, 974ML TOTAL FREE WATER FROM FORMULA AND FLUSHES MONITOR TOLERANCE AND LYTES IF PROPOFOL TO REMAINS OFF, RECOMMEND INCREASING TF TO GLUCERNA AT MAX GOAL RATE 50ML/HR TO PROVIDE 1200KCALS, 50G PROTEIN, 1024ML FREE WATER FROM FORMULA FOLLOWING WITH TEAM
[2023-08-08] MEDS: cefTRIAXone sodium 1 GM in 0.9 % Sodium Chloride 50 ML IV (12:44)
--- NOTE | 2023-08-08 13:19 | MHC.CM.PN ---
Pt continues in ICU on ventilatory support: plans for the day are to wean off precedex to assess for ability to vent wean. Levo gtt slowly being titrated as well. Pt from home w/[employer] [employer] and [facility] supports. Will re-eval d/c needs once pt shows clinical improvement.
[2023-08-08] MEDS: Acetaminophen 325 MG TABLET 975 MG PO (13:30)
[2023-08-08 17:53] LABS: Glucose, Whole Blood 205 mg/dL (60-115)
[2023-08-08 20:43] LABS: Anion Gap 15 (12-20); Blood Urea Nitrogen 7 mg/dL (9-16); Calcium 9.9 mg/dL (8.4-10.2); Carbon Dioxide 26 mmol/L (22-29); Chloride 100 mmol/L (96-108); Creatinine Clr Calc Pharmacy 110.2; Estimated Glomerular Filt Rate > 60; Glucose Random 213 mg/dL (60-115); Magnesium 1.6 mg/dL (1.6-2.6); Phosphorus 3.7 mg/dL (2.7-4.5); Potassium 3.5 mmol/L (3.3-5.1); Sodium 137 mmol/L (135-145)
[2023-08-08] MEDS: Insulin Glargine,Hum.rec.anlog 100 UNIT/ML 10 ML VIAL 35 UNIT SUBCUT (20:55)
[2023-08-08] MEDS: Potassium Chloride Packet 20 MEQ PACKET 40 MEQ OG-TUBE (21:03)
[2023-08-08] MEDS: dexmedeTOMIDidine HCL/NS 400 MCG/100 ML INFUS..BTL 9.01 MCG IVCONT (21:47)
[2023-08-08] MEDS: Midazolam HCl/PF 2 MG/2 ML VIAL 4 MG IVPUSH (23:25)
[2023-08-09] VITALS (34 sets, daily range): BP systolic 94–145; BP diastolic 49–89; PULSE 75–124; RESP 13–33; TEMP 34.5–38.4; O2SAT 87–99
[2023-08-09 00:54] LABS: Glucose, Whole Blood 226 mg/dL (60-115)
[2023-08-09] MEDS: Insulin Lispro 100 UNIT/ML 3 ML VIAL SUBCUT ×5 (00:54→23:31)
[2023-08-09] MEDS: Albumin Human 25 % 100 ML IV ×2 (00:57→05:19)
[2023-08-09] MEDS: Heparin Sodium,Porcine 5,000 UNIT/ML VIAL 5000 UNIT SUBCUT ×3 (01:16→17:53)
[2023-08-09 05:15] LABS: VBG HCO3 28 mmol/L (22-26); VBG pCO2 49 mmHg; VBG pH 7.36 (7.32-7.43); VBG pO2 53 mmHg
[2023-08-09 05:17] LABS: Venous Blood Gas Refer to POC result
[2023-08-09] MEDS: dexmedeTOMIDidine HCL/NS 400 MCG/100 ML INFUS..BTL 9.01 MCG IVCONT (05:17)
[2023-08-09 05:26] LABS: Hematocrit 32.6 % (37.0-47.0); Hemoglobin 10.1 g/dl (12.0-16.0); Mean Corpuscular Hemoglobin 29.1 pg (27.0-33.0); Mean Corpuscular Volume 93.9 fL (80.0-98.0); NRBC Pct Auto 0.7 /100WBC (0.0-0.2); Platelet Count 168 X10*3/uL (160-400); Red Blood Count 3.47 X10*6/uL (4.20-5.50); Red Cell Distribution Width 15.3 % (11.0-16.0); White Blood Count 4.3 X10*3/uL (4.8-10.8)
[2023-08-09 05:41] LABS: Albumin Level 3.9 g/dL (3.5-5.0); Anion Gap 15 (12-20); Blood Urea Nitrogen 8 mg/dL (9-16); Calcium 10.1 mg/dL (8.4-10.2); Carbon Dioxide 26 mmol/L (22-29); Chloride 101 mmol/L (96-108); Creatinine Clr Calc Pharmacy 108.4; Estimated Glomerular Filt Rate > 60; Glucose Random 240 mg/dL (60-115); Magnesium 1.9 mg/dL (1.6-2.6); Phosphorus 3.7 mg/dL (2.7-4.5); Sodium 138 mmol/L (135-145)
[2023-08-09] MEDS: Midazolam HCl/PF 2 MG/2 ML VIAL 4 MG IVPUSH ×2 (06:07→16:29)
[2023-08-09 06:53] LABS: Band Neutrophils Percent 7 % (3-5); Basophils Percent Manual 1 % (0-2); Lymphocytes Absolute Manual 0.4 X10*3/uL (1.2-4.9); Lymphocytes Percent Manual 9 % (20-40); Metamyelocytes Percent 1 %; Monocytes Absolute Manual 0.2 X10*3/uL (0.1-1.2); Monocytes Percent Manual 4 % (2-11); Neutrophils Absolute Manual 3.7 X10*3/uL (2.0-8.3); Neutrophils Percent Manual 78 % (45-73)
[2023-08-09 06:57] LABS: Hypochromasia 1+ (5-14) /OIF; Platelet Estimate NORMAL (NORMAL); Platelet Morphology Comment NORMAL; RBC Morphology NOTED
[2023-08-09] MEDS: Albuterol/Iprat 2.5/0.5MG 3 ML AMPUL.NEB INHALE ×4 (07:51→19:32)
[2023-08-09] MEDS: Famotidine/PF 20 MG/2 ML VIAL IVPUSH (09:39)
[2023-08-09] MEDS: acetaZOLAMIDE sodium 500 MG VIAL IVPUSH ×2 (09:39→20:55)
[2023-08-09] MEDS: dilTIAZem HCL 60 MG TABLET PO ×4 (09:40→20:55)
[2023-08-09] MEDS: Chlorhexidine Gluc Oral Rinse 15 ML MOUTHWASH BUCCAL ×3 (09:40→20:55)
[2023-08-09] MEDS: lamoTRIgine 25 MG TABLET 150 MG PO (09:40)
[2023-08-09] MEDS: methADONE HCl 20 MG/2 ML ORAL.CONC 30 MG PO (09:42)
[2023-08-09] MEDS: 0.9 % Sodium Chloride Flush 3 ML SYRINGE IVFLUSH ×2 (09:43→13:44)
--- NOTE | 2023-08-09 10:18 | PM.CCPN ---
Subjective Subjective Date of Service: 08/09/23 Interval History: 53-year-old lady with underlying morbid obesity, CHITO with hyperventilation syndrome with CO2 retention on supplemental oxygen at 3 L and nocturnal BiPAP, asthma/COPD overlap syndrome, diastolic heart failure, diabetes mellitus, opioid dependence on methadone with multiple admissions for respiratory failure admitted on 08/02/2023 with acute on chronic hypoxic and hypercapnic respiratory failure initially to telemetry michel, however on 08/05/2023 patient with worsening CO2 retention with poor improvement on BiPAP support requiring transfer to the intensive care unit and intubation. No events overnight. Doing well on pressure support, however stil with poor arousal with sedation vacation. Critical Care Time (minutes): 60 Physical Exam Vital Signs: Vital Signs: Last Vital Signs Temp 100.2 F 08/09/23 08:59 Pulse 108 H 08/09/23 09:40 Resp 15 08/09/23 08:59 BP 106/57 L 08/09/23 09:40 Pulse Ox 94 08/09/23 08:59 O2 Del Method Mechanical Ventil ation 08/09/23 08:59 O2 Flow Rate 90 08/05/23 15:52 FiO2 35 08/09/23 08:59 BMI result Body Mass Index 38.8 Const: General: no acute distress and other (Poor arousal with sedation vacation) Nutritional Appearance: obese Eyes: Sclerae: sclerae normal EOM: EOMs intact bilaterally Neck: Neck: Yes no lymphadenopathy, Yes trachea midline and Yes supple Resp: Auscultation: clear to auscultation bilaterally Cardio: Rate: tachycardic Rhythm: regular rhythm Heart sounds: no gallops, no murmurs and no rubs GI: Palpation (GI): Soft to palpation and Other GI palpation findings present ( Nontender) Auscultation: normal bowel sounds Extrem: General: Yes no pedal edema, No clubbing and No cyanosis Objective Data Labs 08/09/23 05:10 08/09/23 05:10 Labs: Laboratory Results - last 24 hr 08/08/23 08/08/23 08/08/23 12:14 17:49 20:16 WBC RBC Hgb Hct MCV MCH MCHC RDW Plt Count MPV Immature Gran % (Auto) Neut % (Auto) Lymph % (Auto) [place] % (Auto) Eos % (Auto) Baso % (Auto) Lymph # (Auto) [place] # (Auto) Eos # (Auto) Baso # (Auto) Abs Immat Gran (auto) Absolute Neuts (auto) Absolute Nucleated RBC Nucleated RBC % (auto) Neutrophils % (Manual) Band Neutrophils % Lymphocytes % (Manual) Monocytes % (Manual) Basophils % (Manual) Metamyelocytes % Abs Neuts (Manual) Lymphocytes # (Manual) Monocytes # (Manual) Platelet Estimate Plt Morphology Comment RBC Morphology Hypochromasia VBG pH VBG pCO2 VBG pO2 VBG HCO3 VBG O2 Saturation VBG Base Excess Sodium 137 Potassium 3.5 Chloride 100 Carbon Dioxide 26 Anion Gap 15 BUN 7 L Creatinine 0.59 Estim Creat Clear Calc 110.2 Estimated GFR > 60 POC Glucose 199 H 205 H Random Glucose 213 H Calcium 9.9 Phosphorus 3.7 Magnesium 1.6 Albumin 08/09/23 08/09/23 08/09/23 00:50 05:07 05:10 WBC 4.3 L RBC 3.47 L Hgb 10.1 L D Hct 32.6 L MCV 93.9 MCH 29.1 MCHC 31.0 RDW 15.3 Plt Count 168 MPV 9.0 L Immature Gran % (Auto) Cancelled Neut % (Auto) Cancelled Lymph % (Auto) Cancelled [place] % (Auto) Cancelled Eos % (Auto) Cancelled Baso % (Auto) Cancelled Lymph # (Auto) Cancelled [place] # (Auto) Cancelled Eos # (Auto) Cancelled Baso # (Auto) Cancelled Abs Immat Gran (auto) Cancelled Absolute Neuts (auto) Cancelled Absolute Nucleated RBC 0.030 H Nucleated RBC % (auto) 0.7 H Neutrophils % (Manual) 78 H Band Neutrophils % 7 H Lymphocytes % (Manual) 9 L Monocytes % (Manual) 4 Basophils % (Manual) 1 Metamyelocytes % 1 Abs Neuts (Manual) 3.7 Lymphocytes # (Manual) 0.4 L Monocytes # (Manual) 0.2 Platelet Estimate NORMAL Plt Morphology Comment NORMAL RBC Morphology NOTED Hypochromasia 1+ (5-14) VBG pH 7.36 VBG pCO2 49 VBG pO2 53 VBG HCO3 28 H VBG O2 Saturation 80.0 VBG Base Excess 2.0 Sodium 138 Potassium 4.0 Chloride 101 Carbon Dioxide 26 Anion Gap 15 BUN 8 L Creatinine 0.60 Estim Creat Clear Calc 108.4 Estimated GFR > 60 POC Glucose 226 H Random Glucose 240 H Calcium 10.1 Phosphorus 3.7 Magnesium 1.9 Albumin 3.9 Microbiology Microbiology Results: Microbiology 08/03/23 16:38 Sputum - Expectorated Gram Stain - Final 08/03/23 16:38 Sputum - Expectorated Sputum Culture - Preliminary Filamentous fungus 08/02/23 14:20 Blood - Venous Blood Culture - Final No growth after 5 days. 08/02/23 13:36 Blood - Venous Blood Culture - Final No growth after 5 days. Progress Note: A&P Assessment and plan (1) Opioid dependence: Status: Acute (2) Type 2 diabetes mellitus: Status: Acute (3) Diastolic heart failure: Status: Acute (4) Acute on chronic respiratory failure with hypoxia and hypercapnia: Status: Acute (5) CHITO (obstructive sleep apnea): Status: Acute (6) Obesity hypoventilation syndrome: Status: Acute (7) COPD (chronic obstructive pulmonary disease): Status: Acute Plan Assessment: 53-year-old lady with underlying CHITO with obesity hyperventilation, asthma/COPD, obesity, diastolic heart failure admitted with acute on chronic hypoxic and hypercapnic respiratory failure now requiring ventilatory support. Plan: Neuro: Poor arousal with sedation vacation, decrease methadone. Cardiac: Acute on chronic diastolic congestive heart failure improving with diuresis. Continue with diuresis. Pulmonary: Acute on chronic hypoxic and hypercapnic respiratory failure now requiring ventilatory support. Continue to titrate off as tolerated. Underlying CHITO with obesity hyperventilation and chronic supplemental oxygen dependence. Renal: No acute issues. Endo: No acute issues. GI: No acute issues. ID: No acute issues Heme/Onc: No acute issues. Psych: No acute issues. Underlying opioid dependence, continue methadone. Miscellaneous: No acute issues. Prophylaxis: Heparin, famotidine Diet: Tube feed Critical care time spent: 60 minutes Quality Stroke Does the patient have a stroke diagnosis?: No VTE Prior VTE?: No VTE Risk Level:: Medical - moderate - high VTE Device Contraindication: Treatment Not Indicated VTE Drug Contraindication: N/A - Med Ordered
[2023-08-09] MEDS: cefTRIAXone sodium 1 GM in 0.9 % Sodium Chloride 50 ML IV (11:29)
[2023-08-09 11:30] LABS: Glucose, Whole Blood 226 mg/dL (60-115)
[2023-08-09] MEDS: dexmedeTOMIDidine HCL/NS 400 MCG/100 ML INFUS..BTL 22.53 MCG IVCONT (16:29)
[2023-08-09 17:37] LABS: Glucose, Whole Blood 199 mg/dL (60-115)
[2023-08-09 20:51] LABS: Glucose, Whole Blood 204 mg/dL (60-115)
[2023-08-09] MEDS: Insulin Glargine,Hum.rec.anlog 100 UNIT/ML 10 ML VIAL 35 UNIT SUBCUT (20:55)
[2023-08-09] MEDS: dexmedeTOMIDidine HCL/NS 400 MCG/100 ML INFUS..BTL 18.02 MCG IVCONT (20:55)
[2023-08-09] MEDS: lamoTRIgine 100 MG TABLET 150 MG PO (21:12)
[2023-08-09 23:30] LABS: Glucose, Whole Blood 220 mg/dL (60-115)
[2023-08-10] VITALS (34 sets, daily range): BP systolic 98–138; BP diastolic 52–80; PULSE 76–103; RESP 16–26; TEMP 34.2–38.3; O2SAT 89–96
[2023-08-10] MEDS: Heparin Sodium,Porcine 5,000 UNIT/ML VIAL 5000 UNIT SUBCUT ×3 (02:18→16:01)
[2023-08-10] MEDS: dexmedeTOMIDidine HCL/NS 400 MCG/100 ML INFUS..BTL 18.02 MCG IVCONT ×4 (02:18→18:57)
[2023-08-10 05:09] LABS: VBG HCO3 27 mmol/L (22-26); VBG pCO2 50 mmHg; VBG pH 7.33 (7.32-7.43); VBG pO2 55 mmHg
[2023-08-10 05:24] LABS: Hematocrit 31.1 % (37.0-47.0); Hemoglobin 9.6 g/dl (12.0-16.0); Mean Corpuscular HGB Conc 30.9 g/dl (31.0-35.0); Mean Corpuscular Hemoglobin 29.4 pg (27.0-33.0); Mean Corpuscular Volume 95.1 fL (80.0-98.0); Mean Platelet Volume 9.7 fL (9.4-12.3); NRBC Pct Auto 0.4 /100WBC (0.0-0.2); Platelet Count 198 X10*3/uL (160-400); Red Blood Count 3.27 X10*6/uL (4.20-5.50); Red Cell Distribution Width 15.8 % (11.0-16.0); White Blood Count 4.7 X10*3/uL (4.8-10.8)
[2023-08-10 05:39] LABS: Albumin Level 3.6 g/dL (3.5-5.0); Anion Gap 16 (12-20); Blood Urea Nitrogen 14 mg/dL (9-16); Calcium 10.2 mg/dL (8.4-10.2); Carbon Dioxide 24 mmol/L (22-29); Chloride 100 mmol/L (96-108); Creatinine Clr Calc Pharmacy 112.1; Estimated Glomerular Filt Rate > 60; Glucose Random 264 mg/dL (60-115); Magnesium 1.5 mg/dL (1.6-2.6); Phosphorus 4.3 mg/dL (2.7-4.5); Potassium 4.2 mmol/L (3.3-5.1); Sodium 136 mmol/L (135-145)
[2023-08-10] MEDS: Insulin Lispro 100 UNIT/ML 3 ML VIAL SUBCUT ×3 (05:57→18:05)
[2023-08-10 06:24] LABS: Venous Blood Gas Refer to POC result
[2023-08-10] MEDS: Albuterol/Iprat 2.5/0.5MG 3 ML AMPUL.NEB INHALE ×4 (07:19→20:17)
[2023-08-10] MEDS: 0.9 % Sodium Chloride Flush 3 ML SYRINGE IVFLUSH ×2 (07:27→16:28)
[2023-08-10] MEDS: Magnesium Sulfate/H2O 2 GM/50 ML PIGGYBACK IV (07:27)
[2023-08-10 08:27] LABS: Band Neutrophils Percent 9 % (3-5); Lymphocytes Absolute Manual 0.6 X10*3/uL (1.2-4.9); Lymphocytes Percent Manual 13 % (20-40); Metamyelocytes Absolute 0.1 X10*3/uL; Metamyelocytes Percent 3 %; Monocytes Absolute Manual 0.2 X10*3/uL (0.1-1.2); Monocytes Percent Manual 4 % (2-11); Myelocytes Absolute 0.1 X10*/uL; Myelocytes Percent 2 %; Neutrophils Absolute Manual 3.7 X10*3/uL (2.0-8.3); Neutrophils Percent Manual 69 % (45-73)
[2023-08-10 08:31] LABS: Hypochromasia 1+ (5-14) /OIF; Platelet Estimate NORMAL (NORMAL); Platelet Morphology Comment NORMAL; Polychromasia 1+ (0-2) /OIF; RBC Morphology NOTED
[2023-08-10] MEDS: Famotidine/PF 20 MG/2 ML VIAL IVPUSH (08:54)
[2023-08-10] MEDS: acetaZOLAMIDE sodium 500 MG VIAL IVPUSH ×2 (08:55→20:06)
[2023-08-10] MEDS: dilTIAZem HCL 60 MG TABLET PO ×4 (08:55→20:06)
[2023-08-10] MEDS: Chlorhexidine Gluc Oral Rinse 15 ML MOUTHWASH BUCCAL ×3 (08:55→20:06)
[2023-08-10] MEDS: lamoTRIgine 100 MG TABLET 150 MG PO ×2 (08:55→20:06)
--- NOTE | 2023-08-10 09:42 | P.PNCC_ITS ---
Subjective Subjective Date of Service: 08/10/23 Interval History: 53-year-old lady with underlying morbid obesity, CHITO with hyperventilation syndrome with CO2 retention on supplemental oxygen at 3 L and nocturnal BiPAP, asthma/COPD overlap syndrome, diastolic heart failure, diabetes mellitus, opioid dependence on methadone with multiple admissions for respiratory failure admitted on 08/02/2023 with acute on chronic hypoxic and hypercapnic respiratory failure initially to telemetry michel, however on 08/05/2023 patient with worsening CO2 retention with poor improvement on BiPAP support requiring transfer to the intensive care unit and intubation. No events overnight. Still with poor arousal with sedation vacation, CT head with ?right temporal CVA Critical Care Time (minutes): 60 Physical Exam 2 Vital Signs: Vital Signs: Last Vital Signs Temp 99.9 F 08/10/23 09:00 Pulse 93 08/10/23 09:00 Resp 20 08/10/23 09:00 BP 125/65 08/10/23 09:00 Pulse Ox 93 08/10/23 09:00 O2 Del Method Mechanical Ventil ation 08/10/23 09:00 O2 Flow Rate 90 08/05/23 15:52 FiO2 35 08/10/23 09:00 BMI result Body Mass Index 38.8 Const: General: no acute distress and other (Sedated on the vent) N utritional Appearance: obese Eyes: Sclerae: sclerae normal EOM: EOMs intact bilaterally Neck: Neck: Yes no lymphadenopathy, Yes trachea midline and Yes supple Resp: Auscultation: clear to auscultation bilaterally Cardio: Rate: regular rate Rhythm: regular rhythm Heart sounds: no gallops, no murmurs and no rubs GI: Palpation (GI): Soft to palpation and Other GI palpation findings present ( Nontender) Auscultation: normal bowel sounds Extrem: General: Yes no pedal edema, No clubbing and No cyanosis Objective Data Labs 08/10/23 05:03 08/10/23 05:03 Labs: Laboratory Results - last 24 hr 08/09/23 08/09/23 08/09/23 11:22 17:32 20:48 WBC RBC Hgb Hct MCV MCH MCHC RDW Plt Count MPV Immature Gran % (Auto) Neut % (Auto) Lymph % (Auto) [place] % (Auto) Eos % (Auto) Baso % (Auto) Lymph # (Auto) [place] # (Auto) Eos # (Auto) Baso # (Auto) Abs Immat Gran (auto) Absolute Neuts (auto) Absolute Nucleated RBC Nucleated RBC % (auto) Neutrophils % (Manual) Band Neutrophils % Lymphocytes % (Manual) Monocytes % (Manual) Metamyelocytes % Myelocytes % Abs Neuts (Manual) Lymphocytes # (Manual) Monocytes # (Manual) Metamyelocytes # Myelocytes # Platelet Estimate Plt Morphology Comment RBC Morphology Polychromasia Hypochromasia VBG pH VBG pCO2 VBG pO2 VBG HCO3 VBG O2 Saturation VBG Base Excess Sodium Potassium Chloride Carbon Dioxide Anion Gap BUN Creatinine Estim Creat Clear Calc Estimated GFR POC Glucose 226 H 199 H 204 H Random Glucose Calcium Phosphorus Magnesium Albumin 08/09/23 08/10/23 08/10/23 23:27 05:01 05:03 WBC 4.7 L RBC 3.27 L Hgb 9.6 L Hct 31.1 L MCV 95.1 MCH 29.4 MCHC 30.9 L RDW 15.8 Plt Count 198 MPV 9.7 Immature Gran % (Auto) Cancelled Neut % (Auto) Cancelled Lymph % (Auto) Cancelled [place] % (Auto) Cancelled Eos % (Auto) Cancelled Baso % (Auto) Cancelled Lymph # (Auto) Cancelled [place] # (Auto) Cancelled Eos # (Auto) Cancelled Baso # (Auto) Cancelled Abs Immat Gran (auto) Cancelled Absolute Neuts (auto) Cancelled Absolute Nucleated RBC 0.020 H Nucleated RBC % (auto) 0.4 H Neutrophils % (Manual) 69 Band Neutrophils % 9 H Lymphocytes % (Manual) 13 L Monocytes % (Manual) 4 Metamyelocytes % 3 Myelocytes % 2 Abs Neuts (Manual) 3.7 Lymphocytes # (Manual) 0.6 L Monocytes # (Manual) 0.2 Metamyelocytes # 0.1 Myelocytes # 0.1 Platelet Estimate NORMAL Plt Morphology Comment NORMAL RBC Morphology NOTED Polychromasia 1+ (0-2) Hypochromasia 1+ (5-14) VBG pH 7.33 VBG pCO2 50 VBG pO2 55 VBG HCO3 27 H VBG O2 Saturation 83.0 VBG Base Excess 1.0 Sodium 136 Potassium 4.2 Chloride 100 Carbon Dioxide 24 Anion Gap 16 BUN 14 Creatinine 0.58 Estim Creat Clear Calc 112.1 Estimated GFR > 60 POC Glucose 220 H Random Glucose 264 H Calcium 10.2 Phosphorus 4.3 Magnesium 1.5 L Albumin 3.6 Microbiology Microbiology Results: Microbiology 08/03/23 16:38 Sputum - Expectorated Gram Stain - Final 08/03/23 16:38 Sputum - Expectorated Sputum Culture - Preliminary Filamentous fungus 08/02/23 14:20 Blood - Venous Blood Culture - Final No growth after 5 days. 08/02/23 13:36 Blood - Venous Blood Culture - Final No growth after 5 days. Progress Note: A&P Assessment and plan (1) Opioid dependence: Status: Acute (2) Type 2 diabetes mellitus: Status: Acute (3) Diastolic heart failure: Status: Acute (4) Acute on chronic respiratory failure with hypoxia and hypercapnia: Status: Acute (5) CHITO (obstructive sleep apnea): Status: Acute (6) Obesity hypoventilation syndrome: Status: Acute (7) COPD (chronic obstructive pulmonary disease): Status: Acute (8) Encephalopathy acute: Status: Acute Plan Assessment: 53-year-old lady with underlying CHITO with obesity hyperventilation, asthma/COPD, obesity, diastolic heart failure admitted with acute on chronic hypoxic and hypercapnic respiratory failure now requiring ventilatory support. Plan: Neuro: Poor arousal with sedation vacation, methadone stop. CT head with ?right temporal CVA. MRI is pending. Cardiac: Acute on chronic diastolic congestive heart failure resolved with diuresis. Pulmonary: Acute on chronic hypoxic and hypercapnic respiratory failure now requiring ventilatory support. Continue to titrate off as tolerated. Underlying CHITO with obesity hyperventilation and chronic supplemental oxygen dependence. Renal: No acute issues. Endo: No acute issues. GI: No acute issues. ID: No acute issues Heme/Onc: No acute issues. Psych: No acute issues. Underlying opioid dependence. Miscellaneous: No acute issues. Prophylaxis: Heparin, famotidine Diet: Tube feed Critical care time spent: 60 minutes Quality Stroke Does the patient have a stroke diagnosis?: No VTE Prior VTE?: No VTE Risk Level:: Medical - moderate - high VTE Device Contraindication: Treatment Not Indicated VTE Drug Contraindication: N/A - Med Ordered
[2023-08-10 11:35] LABS: Glucose, Whole Blood 219 mg/dL (60-115)
[2023-08-10] MEDS: cefTRIAXone sodium 1 GM in 0.9 % Sodium Chloride 50 ML IV (11:48)
[2023-08-10] MEDS: Midazolam HCl/PF 2 MG/2 ML VIAL 4 MG IVPUSH (13:00)
[2023-08-10 17:39] LABS: Glucose, Whole Blood 216 mg/dL (60-115)
[2023-08-10 20:01] LABS: Glucose, Whole Blood 198 mg/dL (60-115)
[2023-08-10] MEDS: Insulin Glargine,Hum.rec.anlog 100 UNIT/ML 10 ML VIAL 35 UNIT SUBCUT (20:07)
[2023-08-11] VITALS (38 sets, daily range): BP systolic 103–143; BP diastolic 55–78; PULSE 94–139; RESP 12–35; TEMP 34.6–39; O2SAT 88–98
[2023-08-11] MEDS: dexmedeTOMIDidine HCL/NS 400 MCG/100 ML INFUS..BTL 18.02 MCG IVCONT ×2 (00:16→05:39)
[2023-08-11 00:17] LABS: Glucose, Whole Blood 203 mg/dL (60-115)
[2023-08-11] MEDS: Heparin Sodium,Porcine 5,000 UNIT/ML VIAL 5000 UNIT SUBCUT ×4 (00:17→23:56)
[2023-08-11] MEDS: Insulin Lispro 100 UNIT/ML 3 ML VIAL SUBCUT ×5 (00:17→23:55)
[2023-08-11] MEDS: Albuterol/Iprat 2.5/0.5MG 3 ML AMPUL.NEB INHALE ×5 (00:55→20:27)
[2023-08-11 04:56] LABS: VBG Base Excess 0.2 mmol/L; VBG HCO3 24 mmol/L (22-26); VBG pCO2 40 mmHg; VBG pH 7.39 (7.32-7.43); VBG pO2 51 mmHg; Venous Blood Gas Refer to POC result
[2023-08-11 04:57] LABS: Hematocrit 30.2 % (37.0-47.0); Hemoglobin 9.7 g/dl (12.0-16.0); Mean Corpuscular HGB Conc 32.1 g/dl (31.0-35.0); Mean Corpuscular Hemoglobin 29.6 pg (27.0-33.0); Mean Corpuscular Volume 92.1 fL (80.0-98.0); Mean Platelet Volume 9.6 fL (9.4-12.3); NRBC Pct Auto 0.6 /100WBC (0.0-0.2); Platelet Count 250 X10*3/uL (160-400); Red Blood Count 3.28 X10*6/uL (4.20-5.50); Red Cell Distribution Width 15.7 % (11.0-16.0); White Blood Count 6.7 X10*3/uL (4.8-10.8)
[2023-08-11 05:16] LABS: Albumin Level 3.4 g/dL (3.5-5.0); Anion Gap 19 (12-20); Blood Urea Nitrogen 11 mg/dL (9-16); Calcium 9.9 mg/dL (8.4-10.2); Carbon Dioxide 23 mmol/L (22-29); Chloride 99 mmol/L (96-108); Creatinine Clr Calc Pharmacy 127.5; Estimated Glomerular Filt Rate > 60; Glucose Random 212 mg/dL (60-115); Magnesium 1.4 mg/dL (1.6-2.6); Phosphorus 4.1 mg/dL (2.7-4.5); Potassium 3.9 mmol/L (3.3-5.1); Sodium 137 mmol/L (135-145)
[2023-08-11 05:18] LABS: Band Neutrophils Percent 11 % (3-5); Lymphocytes Absolute Manual 0.5 X10*3/uL (1.2-4.9); Lymphocytes Percent Manual 7 % (20-40); Metamyelocytes Absolute 0.4 X10*3/uL; Metamyelocytes Percent 6 %; Monocytes Absolute Manual 0.7 X10*3/uL (0.1-1.2); Monocytes Percent Manual 11 % (2-11); Myelocytes Absolute 0.3 X10*/uL; Myelocytes Percent 4 %; Neutrophils Absolute Manual 4.8 X10*3/uL (2.0-8.3); Neutrophils Percent Manual 61 % (45-73)
[2023-08-11 05:19] LABS: Dohle Bodies PRESENT; Large Platelet PRESENT; Platelet Estimate NORMAL (NORMAL); Platelet Morphology Comment NOTED; Polychromasia 1+ (0-2) /OIF; RBC Morphology NOTED; Toxic Granulation PRESENT
[2023-08-11] MEDS: Magnesium Sulfate/H2O 2 GM/50 ML PIGGYBACK IV (05:39)
[2023-08-11] MEDS: lamoTRIgine 100 MG TABLET 150 MG PO (09:00)
[2023-08-11] MEDS: dilTIAZem HCL 60 MG TABLET PO ×4 (09:00→21:35)
[2023-08-11] MEDS: 0.9 % Sodium Chloride Flush 3 ML SYRINGE IVFLUSH ×3 (09:00→21:35)
[2023-08-11] MEDS: Famotidine/PF 20 MG/2 ML VIAL IVPUSH (09:00)
[2023-08-11] MEDS: Chlorhexidine Gluc Oral Rinse 15 ML MOUTHWASH BUCCAL ×3 (09:00→21:35)
[2023-08-11] MEDS: acetaZOLAMIDE sodium 500 MG VIAL IVPUSH ×2 (09:00→21:34)
[2023-08-11] MEDS: Metoprolol Tartrate 5 MG/5 ML VIAL IVPUSH ×3 (10:41→21:34)
[2023-08-11] MEDS: cefTRIAXone sodium 1 GM in 0.9 % Sodium Chloride 50 ML IV (10:41)
--- NOTE | 2023-08-11 11:07 | PM.CCPN ---
Subjective Subjective Date of Service: 08/11/23 Interval History: 53-year-old lady with underlying morbid obesity, CHITO with hyperventilation syndrome with CO2 retention on supplemental oxygen at 3 L and nocturnal BiPAP, asthma/COPD overlap syndrome, diastolic heart failure, diabetes mellitus, opioid dependence on methadone with multiple admissions for respiratory failure admitted on 08/02/2023 with acute on chronic hypoxic and hypercapnic respiratory failure initially to telemetry michel, however on 08/05/2023 patient with worsening CO2 retention with poor improvement on BiPAP support requiring transfer to the intensive care unit and intubation. No events overnight. Still with poor arousal with sedation vacation, MRI with no evidence of CVA. Critical Care Time (minutes): 60 Physical Exam Vital Signs: Vital Signs: Last Vital Signs Temp 101.7 F H 08/11/23 10:00 Pulse 139 H 08/11/23 10:00 Resp 25 H 08/11/23 10:00 BP 137/78 08/11/23 10:00 Pulse Ox 88 L 08/11/23 10:00 O2 Del Method Mechanical Ventil ation 08/11/23 10:00 O2 Flow Rate 90 08/05/23 15:52 FiO2 35 08/11/23 10:00 BMI result Body Mass Index 38.8 Const: General: no acute distress and other (Poor arousal with sedation vacation) Nutritional Appearance: obese Eyes: Sclerae: sclerae normal EOM: EOMs intact bilaterally Neck: Neck: Yes no lymphadenopathy, Yes trachea midline and Yes supple Resp: Auscultation: clear to auscultation bilaterally Cardio: Rate: tachycardic Rhythm: regular rhythm Heart sounds: no gallops, no murmurs and no rubs GI: Palpation (GI): Soft to palpation and Other GI palpation findings present ( Nontender) Auscultation: normal bowel sounds Extrem: General: Yes no pedal edema, No clubbing and No cyanosis Objective Data Labs 08/11/23 04:42 08/11/23 04:42 Labs: Laboratory Results - last 24 hr 08/10/23 08/10/23 08/10/23 11:32 17:34 19:58 WBC RBC Hgb Hct MCV MCH MCHC RDW Plt Count MPV Immature Gran % (Auto) Neut % (Auto) Lymph % (Auto) [place] % (Auto) Eos % (Auto) Baso % (Auto) Lymph # (Auto) [place] # (Auto) Eos # (Auto) Baso # (Auto) Abs Immat Gran (auto) Absolute Neuts (auto) Absolute Nucleated RBC Nucleated RBC % (auto) Neutrophils % (Manual) Band Neutrophils % Lymphocytes % (Manual) Monocytes % (Manual) Metamyelocytes % Myelocytes % Abs Neuts (Manual) Lymphocytes # (Manual) Monocytes # (Manual) Metamyelocytes # Myelocytes # Toxic Granulation Dohle Bodies Platelet Estimate Large Platelets Plt Morphology Comment RBC Morphology Polychromasia VBG pH VBG pCO2 VBG pO2 VBG HCO3 VBG O2 Saturation VBG Base Excess Sodium Potassium Chloride Carbon Dioxide Anion Gap BUN Creatinine Estim Creat Clear Calc Estimated GFR POC Glucose 219 H 216 H 198 H Random Glucose Calcium Phosphorus Magnesium Albumin 08/11/23 08/11/23 08/11/23 00:13 04:42 04:47 WBC 6.7 RBC 3.28 L Hgb 9.7 L Hct 30.2 L MCV 92.1 MCH 29.6 MCHC 32.1 RDW 15.7 Plt Count 250 D MPV 9.6 Immature Gran % (Auto) Cancelled Neut % (Auto) Cancelled Lymph % (Auto) Cancelled [place] % (Auto) Cancelled Eos % (Auto) Cancelled Baso % (Auto) Cancelled Lymph # (Auto) Cancelled [place] # (Auto) Cancelled Eos # (Auto) Cancelled Baso # (Auto) Cancelled Abs Immat Gran (auto) Cancelled Absolute Neuts (auto) Cancelled Absolute Nucleated RBC 0.040 H Nucleated RBC % (auto) 0.6 H Neutrophils % (Manual) 61 Band Neutrophils % 11 H Lymphocytes % (Manual) 7 L Monocytes % (Manual) 11 Metamyelocytes % 6 Myelocytes % 4 Abs Neuts (Manual) 4.8 Lymphocytes # (Manual) 0.5 L Monocytes # (Manual) 0.7 Metamyelocytes # 0.4 Myelocytes # 0.3 Toxic Granulation PRESENT Dohle Bodies PRESENT Platelet Estimate NORMAL Large Platelets PRESENT Plt Morphology Comment NOTED RBC Morphology NOTED Polychromasia 1+ (0-2) VBG pH 7.39 VBG pCO2 40 VBG pO2 51 VBG HCO3 24 VBG O2 Saturation 83.0 VBG Base Excess 0.2 Sodium 137 Potassium 3.9 Chloride 99 Carbon Dioxide 23 Anion Gap 19 BUN 11 Creatinine 0.51 Estim Creat Clear Calc 127.5 Estimated GFR > 60 POC Glucose 203 H Random Glucose 212 H Calcium 9.9 Phosphorus 4.1 Magnesium 1.4 L* Albumin 3.4 L Microbiology Microbiology Results: Microbiology 08/03/23 16:38 Sputum - Expectorated Gram Stain - Final 08/03/23 16:38 Sputum - Expectorated Sputum Culture - Preliminary Filamentous fungus 08/02/23 14:20 Blood - Venous Blood Culture - Final No growth after 5 days. 08/02/23 13:36 Blood - Venous Blood Culture - Final No growth after 5 days. Progress Note: A&P Assessment and plan (1) Encephalopathy acute: Status: Acute (2) Opioid dependence: Status: Acute (3) Type 2 diabetes mellitus: Status: Acute (4) Diastolic heart failure: Status: Acute (5) Acute on chronic respiratory failure with hypoxia and hypercapnia: Status: Acute (6) CHITO (obstructive sleep apnea): Status: Acute (7) Obesity hypoventilation syndrome: Status: Acute (8) COPD (chronic obstructive pulmonary disease): Status: Acute Plan Assessment: 53-year-old lady with underlying CHITO with obesity hyperventilation, asthma/COPD, obesity, diastolic heart failure admitted with acute on chronic hypoxic and hypercapnic respiratory failure now requiring ventilatory support. Plan: Neuro: Poor arousal with sedation vacation, methadone stopped. MRI head is essentially normal.. Cardiac: Acute on chronic diastolic congestive heart failure resolved with diuresis. Pulmonary: Acute on chronic hypoxic and hypercapnic respiratory failure now requiring ventilatory support. Continue to titrate off as tolerated. Underlying CHITO with obesity hyperventilation and chronic supplemental oxygen dependence. Renal: No acute issues. Endo: No acute issues. GI: No acute issues. ID: No acute issues Heme/Onc: No acute issues. Psych: No acute issues. Underlying opioid dependence. Miscellaneous: No acute issues. Prophylaxis: Heparin, famotidine Diet: Tube feed Critical care time spent: 60 minutes Quality Stroke Does the patient have a stroke diagnosis?: No VTE Prior VTE?: No VTE Risk Level:: Medical - moderate - high VTE Device Contraindication: Treatment Not Indicated VTE Drug Contraindication: N/A - Med Ordered
[2023-08-11] MEDS: propofoL 200 MG/20 ML VIAL 50 MG IVPUSH (11:33)
[2023-08-11] MEDS: propofoL 1,000 MG/100 ML VIAL 16.22 MG IVCONT ×2 (11:35→17:48)
--- NOTE | 2023-08-11 11:38 | W.PM.CCHP ---
Procedures Date of Service Date of Service: 08/11/23 Intubation Intubation Comments: Patient extubated at approximately 11:00 a.m., however with progressive hypoxia secondary to poor cough requiring emergent re-intubation with 7.5 cuffed ET tube under glide scope guidance with no immediate complications. X-ray for tube position is pending.
[2023-08-11 11:48] LABS: Glucose, Whole Blood 263 mg/dL (60-115)
--- NOTE | 2023-08-11 12:06 | PC.RT ---
Pt was extubated at 11:20am. secretions cleared via NT Sx. Unable to follow command to cough. Sats started to deplete and she was bagged to bring them back up. Implemented both a NC and then an oxymask. Pt was agonal breathing the whole time and sats could not stabilize. Re-intubated at 11:33am. 7.5 tube, 24 @ lip (may have to pull back a bit). Positive color change and ina used to secure tube. MD to make call for trach placement
--- NOTE | 2023-08-11 12:55 | MHC.CLN ---
F/U EXTUBATED TODAY, NOT ABLE TOLERATE, AND RE INTUBATED. TUBE FEED HELD THIS AM DUE TO RESIDUALS. WHEN ABLE TO RESTART TUBE FEEDING, RECOMMEND: GLUCERNA AT MAX GOAL RATE 30ML/HR WITH 120ML FREE WATER Q 8 HRS PROVIDES 720KCALS (1148KCALS WITH SEDATION; 19.5KCALS/KG CMW), 30G PROTEIN, 974ML TOTAL FREE WATER FROM FORMULA AND FLUSHES MONITOR TOLERANCE AND LYTES. FOLLOWING WITH TEAM.
--- NOTE | 2023-08-11 13:44 | PC.NURSE ---
Assumed care at 0700- pt. mechanically vented and sedated with precedex. Tolerating PC 16/5 @ 35% RR 16, O2 sat sustaining >88% with even, unlabored respirations. + cough/gag, slightly opening eyes with verbal stimuli, unable to track or follow commands. Precedex paused at 0851 for SAT. at approx. 0900 vent settings changed to PSV 8/5 35%. Pt. HR sustaining 150s-160s, SBP 160s-180s, O2 sats sustaining <88% with RR 30s-40. Pt. with labored respirations, abdominally breathing and head nodding. No change in neurological assessment. RT called to bedside and pt. placed back on previous PC settings. MD notified- 5 mg lopressor given per MAY. HR sustaining 110s, SBPs 120s, RR 20s, respirations even and unlabored. Precedex gtt remained off at this time. Approx. 1100 MD at bedside to assess pt-neurological assessment unchanged. Extubation orders placed by MD. RT called to bedside. Pt. extubated at 1120 by RT with MD as bedside. Pt. unable to cough on command, requiring NT suctioning by RT for large amount of thick, blood tinged sputum. Pt. initially placed on [place] NC post extubation. Pt. O2 requirements increasing, requiring oxymask, then HFNC. O2 sats dropping to 60s-70%, pt. requiring intermittent bagging with good effect. Pt. respirations labored, abdominal breathing, using accessory muscles- RR 30s. Pt. now only responsive to painful stimuli. Decision made by to re-intubate. 50mg propofol given per MAY, pt. reintubated by at 1135. ETT 7.5, 25 cm at the lip- LS auscultated bilaterally, ETT position confirmed by colorimetry. Propofol gtt started per MAY. Pt. placed on PC settings 16/5 @50%, RR 16. OGT placed by this RN. ETT and OGT placement confirmed via CXR- see report. Pt. with RASS -3, RR 18-26 with even, unlabored respirations. Current VS HR 125, BP 113/70 (84), RR 20, O2 95%, Temp 101.8. MD aware of temp, no new orders at this time. Oral care and repositioning performed Q2HR, hovermat system in place. Family called and updated by this RN. Plan of care ongoing.
[2023-08-11] MEDS: Midazolam HCl/PF 2 MG/2 ML VIAL 4 MG IVPUSH (17:29)
[2023-08-11 17:35] LABS: Glucose, Whole Blood 206 mg/dL (60-115)
[2023-08-11] MEDS: propofoL 1,000 MG/100 ML VIAL 21.62 MG IVCONT (20:29)
[2023-08-11 21:20] LABS: Glucose, Whole Blood 179 mg/dL (60-115)
[2023-08-11] MEDS: Insulin Glargine,Hum.rec.anlog 100 UNIT/ML 10 ML VIAL 35 UNIT SUBCUT (21:33)
[2023-08-11 23:49] LABS: Glucose, Whole Blood 168 mg/dL (60-115)
[2023-08-12] VITALS (36 sets, daily range): BP systolic 105–154; BP diastolic 55–78; PULSE 103–129; RESP 12–32; TEMP 34.6–38.7; O2SAT 89–100
[2023-08-12] MEDS: propofoL 1,000 MG/100 ML VIAL 21.62 MG IVCONT ×6 (00:51→20:56)
[2023-08-12] MEDS: Metoprolol Tartrate 5 MG/5 ML VIAL IVPUSH ×4 (03:45→22:02)
[2023-08-12 05:48] LABS: VBG HCO3 25 mmol/L (22-26); VBG pCO2 44 mmHg; VBG pH 7.36 (7.32-7.43); VBG pO2 77 mmHg
[2023-08-12 05:49] LABS: Venous Blood Gas Refer to POC result
[2023-08-12 05:52] LABS: Hematocrit 30.4 % (37.0-47.0); Hemoglobin 9.6 g/dl (12.0-16.0); Mean Corpuscular HGB Conc 31.6 g/dl (31.0-35.0); Mean Corpuscular Hemoglobin 29.4 pg (27.0-33.0); Mean Corpuscular Volume 93.3 fL (80.0-98.0); NRBC Pct Auto 0.9 /100WBC (0.0-0.2); Platelet Count 288 X10*3/uL (160-400); Red Blood Count 3.26 X10*6/uL (4.20-5.50); Red Cell Distribution Width 15.9 % (11.0-16.0); White Blood Count 7.7 X10*3/uL (4.8-10.8)
[2023-08-12 06:16] LABS: Band Neutrophils Percent 7 % (3-5); Basophils Abs Manual 0.1 X10*3/uL (0.0-0.2); Basophils Percent Manual 1 % (0-2); Lymphocytes Absolute Manual 0.5 X10*3/uL (1.2-4.9); Lymphocytes Percent Manual 6 % (20-40); Metamyelocytes Absolute 0.3 X10*3/uL; Metamyelocytes Percent 4 %; Monocytes Absolute Manual 0.6 X10*3/uL (0.1-1.2); Monocytes Percent Manual 8 % (2-11); Myelocytes Absolute 0.1 X10*/uL; Myelocytes Percent 1 %; Neutrophils Absolute Manual 6.2 X10*3/uL (2.0-8.3); Neutrophils Percent Manual 73 % (45-73); Nucleated Red Blood Cells 1 /100WBC (0-0)
[2023-08-12 06:17] LABS: Glucose, Whole Blood 150 mg/dL (60-115)
[2023-08-12 06:18] LABS: Large Platelet PRESENT; Platelet Estimate NORMAL (NORMAL); Platelet Morphology Comment NOTED; Polychromasia 1+ (0-2) /OIF; RBC Morphology NOTED; Toxic Granulation PRESENT
[2023-08-12] MEDS: Insulin Lispro 100 UNIT/ML 3 ML VIAL SUBCUT ×3 (06:18→18:05)
[2023-08-12 06:28] LABS: Albumin Level 3.2 g/dL (3.5-5.0); Anion Gap 21 (12-20); Blood Urea Nitrogen 10 mg/dL (9-16); Calcium 9.7 mg/dL (8.4-10.2); Carbon Dioxide 21 mmol/L (22-29); Chloride 101 mmol/L (96-108); Creatinine Clr Calc Pharmacy 130.1; Estimated Glomerular Filt Rate > 60; Glucose Random 154 mg/dL (60-115); Magnesium 1.4 mg/dL (1.6-2.6); Phosphorus 4.3 mg/dL (2.7-4.5); Potassium 3.8 mmol/L (3.3-5.1); Sodium 139 mmol/L (135-145)
[2023-08-12] MEDS: 0.9 % Sodium Chloride Flush 3 ML SYRINGE IVFLUSH ×2 (07:30→16:23)
[2023-08-12] MEDS: Magnesium Sulfate/H2O 2 GM/50 ML PIGGYBACK IV (07:34)
[2023-08-12] MEDS: Famotidine/PF 20 MG/2 ML VIAL IVPUSH (07:38)
[2023-08-12] MEDS: acetaZOLAMIDE sodium 500 MG VIAL IVPUSH ×2 (07:38→20:46)
[2023-08-12] MEDS: dilTIAZem HCL 60 MG TABLET PO (07:38)
[2023-08-12] MEDS: Chlorhexidine Gluc Oral Rinse 15 ML MOUTHWASH BUCCAL ×3 (07:39→20:46)
[2023-08-12] MEDS: Heparin Sodium,Porcine 5,000 UNIT/ML VIAL 5000 UNIT SUBCUT ×2 (07:39→16:26)
[2023-08-12] MEDS: Calcitonin,Salmon,Synth Nasal 3.7 ML BOTTLE 1 SPRAY NOSTRIL-B (07:39)
[2023-08-12] MEDS: Albuterol/Iprat 2.5/0.5MG 3 ML AMPUL.NEB INHALE ×4 (08:05→20:01)
--- NOTE | 2023-08-12 08:48 | PM.EVENT ---
Event Note Date of Service: 08/13/23 Event Note: pt seen and examined admitted for acute on chronic respiratory failure known COPD, was a heavy smoker no surgical scars on abdomen, soft CT from July 15 shows good window b/n stomach and abdl wall now for PEG and tracheostomy I explained to her daughter Tona Plasencia the technique of PEG tube placement reviewed risks incl but not limited to bleeding, infections, injury to bowel/other organs, tube leak, tube dislodgement she has given consent Time Spent With Patient Time: Total time managing care of this patient today ____ minutes.
--- NOTE | 2023-08-12 09:54 | P.PNCC_ITS ---
Subjective Subjective Date of Service: 08/12/23 Interval History: 53-year-old lady with underlying morbid obesity, CHITO with hyperventilation syndrome with CO2 retention on supplemental oxygen at 3 L and nocturnal BiPAP, asthma/COPD overlap syndrome, diastolic heart failure, diabetes mellitus, opioid dependence on methadone with multiple admissions for respiratory failure admitted on 08/02/2023 with acute on chronic hypoxic and hypercapnic respiratory failure initially to telemetry michel, however on 08/05/2023 patient with worsening CO2 retention with poor improvement on BiPAP support requiring transfer to the intensive care unit and intubation. Failed extubation 08/11/2023. Now planned for tracheostomy/gastrostomy. No events overnight Critical Care Time (minutes): 60 Physical Exam 2 Vital Signs: Vital Signs: Last Vital Signs Temp 101.7 F H 08/12/23 09:00 Pulse 125 H 08/12/23 09:00 Resp 23 H 08/12/23 09:00 BP 113/58 L 08/12/23 09:00 Pulse Ox 89 L 08/12/23 09:00 O2 Del Method Mechanical Ventil ation 08/12/23 09:00 O2 Flow Rate 90 08/05/23 15:52 FiO2 40 08/12/23 09:00 BMI result Body Mass Index 38.8 Const: General: no acute distress and other (Sedated on the vent) N utritional Appearance: obese Eyes: Sclerae: sclerae normal EOM: EOMs intact bilaterally Neck: Neck: Yes no lymphadenopathy, Yes trachea midline and Yes supple Resp: Auscultation: clear to auscultation bilaterally Cardio: Rate: tachycardic Rhythm: regular rhythm Heart sounds: no gallops, no murmurs and no rubs GI: Palpation (GI): Soft to palpation and Other GI palpation findings present ( Nontender) Auscultation: normal bowel sounds Extrem: General: Yes no pedal edema, No clubbing and No cyanosis Objective Data Labs 08/12/23 05:20 08/12/23 05:20 Labs: Laboratory Results - last 24 hr 08/11/23 08/11/23 08/11/23 11:42 17:31 21:17 WBC RBC Hgb Hct MCV MCH MCHC RDW Plt Count MPV Immature Gran % (Auto) Neut % (Auto) Lymph % (Auto) [place] % (Auto) Eos % (Auto) Baso % (Auto) Lymph # (Auto) [place] # (Auto) Eos # (Auto) Baso # (Auto) Abs Immat Gran (auto) Absolute Neuts (auto) Absolute Nucleated RBC Nucleated RBC % (auto) Neutrophils % (Manual) Band Neutrophils % Lymphocytes % (Manual) Monocytes % (Manual) Basophils % (Manual) Metamyelocytes % Myelocytes % Abs Neuts (Manual) Lymphocytes # (Manual) Monocytes # (Manual) Basophils # (Manual) Metamyelocytes # Myelocytes # Nucleated RBCs Toxic Granulation Platelet Estimate Large Platelets Plt Morphology Comment RBC Morphology Polychromasia VBG pH VBG pCO2 VBG pO2 VBG HCO3 VBG O2 Saturation VBG Base Excess Sodium Potassium Chloride Carbon Dioxide Anion Gap BUN Creatinine Estim Creat Clear Calc Estimated GFR POC Glucose 263 H 206 H 179 H Random Glucose Calcium Phosphorus Magnesium Albumin 08/11/23 08/12/23 08/12/23 23:46 05:20 05:41 WBC 7.7 RBC 3.26 L Hgb 9.6 L Hct 30.4 L MCV 93.3 MCH 29.4 MCHC 31.6 RDW 15.9 Plt Count 288 MPV 9.0 L Immature Gran % (Auto) Cancelled Neut % (Auto) Cancelled Lymph % (Auto) Cancelled [place] % (Auto) Cancelled Eos % (Auto) Cancelled Baso % (Auto) Cancelled Lymph # (Auto) Cancelled [place] # (Auto) Cancelled Eos # (Auto) Cancelled Baso # (Auto) Cancelled Abs Immat Gran (auto) Cancelled Absolute Neuts (auto) Cancelled Absolute Nucleated RBC 0.070 H Nucleated RBC % (auto) 0.9 H Neutrophils % (Manual) 73 Band Neutrophils % 7 H Lymphocytes % (Manual) 6 L Monocytes % (Manual) 8 Basophils % (Manual) 1 Metamyelocytes % 4 Myelocytes % 1 Abs Neuts (Manual) 6.2 Lymphocytes # (Manual) 0.5 L Monocytes # (Manual) 0.6 Basophils # (Manual) 0.1 Metamyelocytes # 0.3 Myelocytes # 0.1 Nucleated RBCs 1 H Toxic Granulation PRESENT Platelet Estimate NORMAL Large Platelets PRESENT Plt Morphology Comment NOTED RBC Morphology NOTED Polychromasia 1+ (0-2) VBG pH 7.36 VBG pCO2 44 VBG pO2 77 VBG HCO3 25 VBG O2 Saturation 97.0 VBG Base Excess 0.0 Sodium 139 Potassium 3.8 Chloride 101 Carbon Dioxide 21 L Anion Gap 21 H BUN 10 Creatinine 0.50 Estim Creat Clear Calc 130.1 Estimated GFR > 60 POC Glucose 168 H Random Glucose 154 H Calcium 9.7 Phosphorus 4.3 Magnesium 1.4 L* Albumin 3.2 L 08/12/23 06:14 WBC RBC Hgb Hct MCV MCH MCHC RDW Plt Count MPV Immature Gran % (Auto) Neut % (Auto) Lymph % (Auto) [place] % (Auto) Eos % (Auto) Baso % (Auto) Lymph # (Auto) [place] # (Auto) Eos # (Auto) Baso # (Auto) Abs Immat Gran (auto) Absolute Neuts (auto) Absolute Nucleated RBC Nucleated RBC % (auto) Neutrophils % (Manual) Band Neutrophils % Lymphocytes % (Manual) Monocytes % (Manual) Basophils % (Manual) Metamyelocytes % Myelocytes % Abs Neuts (Manual) Lymphocytes # (Manual) Monocytes # (Manual) Basophils # (Manual) Metamyelocytes # Myelocytes # Nucleated RBCs Toxic Granulation Platelet Estimate Large Platelets Plt Morphology Comment RBC Morphology Polychromasia VBG pH VBG pCO2 VBG pO2 VBG HCO3 VBG O2 Saturation VBG Base Excess Sodium Potassium Chloride Carbon Dioxide Anion Gap BUN Creatinine Estim Creat Clear Calc Estimated GFR POC Glucose 150 H Random Glucose Calcium Phosphorus Magnesium Albumin Microbiology Microbiology Results: Microbiology 08/03/23 16:38 Sputum - Expectorated Gram Stain - Final 08/03/23 16:38 Sputum - Expectorated Sputum Culture - Preliminary Filamentous fungus 08/02/23 14:20 Blood - Venous Blood Culture - Final No growth after 5 days. 08/02/23 13:36 Blood - Venous Blood Culture - Final No growth after 5 days. Progress Note: A&P Assessment and plan (1) Encephalopathy acute: Status: Acute (2) Opioid dependence: Status: Acute (3) Type 2 diabetes mellitus: Status: Acute (4) Diastolic heart failure: Status: Acute (5) Acute on chronic respiratory failure with hypoxia and hypercapnia: Status: Acute (6) CHITO (obstructive sleep apnea): Status: Acute (7) Obesity hypoventilation syndrome: Status: Acute (8) COPD (chronic obstructive pulmonary disease): Status: Acute Plan Assessment: 53-year-old lady with underlying CHITO with obesity hyperventilation, asthma/COPD, obesity, diastolic heart failure admitted with acute on chronic hypoxic and hypercapnic respiratory failure now requiring ventilatory support. Plan: Neuro: Poor arousal with sedation vacation, methadone stopped. MRI head is essentially normal. Cardiac: Acute on chronic diastolic congestive heart failure resolved with diuresis. Pulmonary: Acute on chronic hypoxic and hypercapnic respiratory failure now requiring ventilatory support. Failed extubation 08/11/2023. Now planned for tracheostomy/gastrostomy. Underlying CHITO with obesity hyperventilation and chronic supplemental oxygen dependence. Renal: No acute issues. Endo: No acute issues. GI: No acute issues. ID: No acute issues Heme/Onc: No acute issues. Psych: No acute issues. Underlying opioid dependence. Miscellaneous: No acute issues. Prophylaxis: Heparin, famotidine Diet: Tube feed Critical care time spent: 60 minutes Quality Stroke Does the patient have a stroke diagnosis?: No VTE Prior VTE?: No VTE Risk Level:: Medical - moderate - high VTE Device Contraindication: Treatment Not Indicated VTE Drug Contraindication: N/A - Med Ordered
--- NOTE | 2023-08-12 10:01 | P.CDIM_ITS ---
PROVIDER RESPONSE TEXT: To clarify, the appropriate diagnosis supported by the clinical indicators: Metabolic QUERY TEXT: PHYSICIAN'S DOCUMENTATION REQUEST Date of Query: 08/12/2023 07:47 AM EDT Patient Name: Anju Tanner I Admit Date: 08/03/2023 Dear Rasta Geller MD, A review of the medical record indicates additional documentation may be needed. Please review below and update the documentation accordingly. Clinical Indicators: Per Critical Care Progress Note 08/10/23 and 08/11/23: Poor arousal with sedation vacation Methadone stopped MRI with no evidence of CVA Based on the above, please further specify, in the Progress Notes, the known or suspected type of the documented encephalopathy: Metabolic Septic Toxic Toxic metabolic Anoxic Hepatic (reported as hepatic failure and needs further specificity as to acute, subacute, or chronic) Due to a specified condition (such as UTI, hyponatremia, CVA, etc.) Other (explain) Clinically unable to determine (explain) Thank you, Felicity Bowman RN Use of terms such as suspected, likely, concern for, or probable (associated with a specific diagnosi s that is being evaluated, monitored, or treated as if it exists) are acceptable and can be coded in the inpatient se tting, when documented at the time of discharge. Please use your independent medical judgment in providing your response. THIS QUERY IS PART OF THE PERMANENT MEDICAL RECORD
--- NOTE | 2023-08-12 10:04 | P.CDIM_ITS ---
PROVIDER RESPONSE TEXT: To clarify, the appropriate diagnosis supported by the clinical indicators: SIRS QUERY TEXT: PHYSICIAN'S DOCUMENTATION REQUEST Date of Query: 08/12/2023 07:52 AM EDT Patient Name: Anju Tanner I Admit Date: 08/03/2023 Dear Rasta Geller MD, A review of the medical record indicates additional documentation may be needed. Please review below and update the documentation accordingly. Clinical Indicators: From 08/10/23 - 08/12/23, temperature 100.6 - 102, pulse 101 - 122, respiratory rate 21 - 32, BP 98/58 - 138/77 Please clarify which, if any, of the following is the most likely etiology of the above symptoms and treatment rendered: Sepsis Severe Sepsis Septic Shock Localized infection only, without systemic illness Indicate the site/source, such as UTI, pneumonia, etc. SIRS Other (explain) Clinically unable to determine (explain) Thank you, Felicity Bowman RN Use of terms such as suspected, likely, concern for, or probable (associated with a specific diagnosi s that is being evaluated, monitored, or treated as if it exists) are acceptable and can be coded in the inpatient se tting, when documented at the time of discharge. Please use your independent medical judgment in providing your response. THIS QUERY IS PART OF THE PERMANENT MEDICAL RECORD
--- NOTE | 2023-08-12 10:28 | MHC.CLN ---
F/U PT WAS RE-INTUBATED AND SEDATED CURRENTLY NPO PT SCHEDULED FOR TRACH/PEG TODAY WHEN TF TO START; RECOMMEND GLUCERNA AT MAX GOAL RATE 55ML/HR WITH 30ML PROSOURCE Q DAY AND 240ML FREE WATER FLUSHES Q 8 HRS TO PROVIDE 1380 TOTAL KCALS (23KCALS/KG), 70G TOTAL PROTEIN (1.2G/KG), 1846ML TOTAL WATER FROM FORMULA AND FLUSHES (31ML/KG) MONITOR TOLERANCE, RESIDUALS AND LYTES FOLLOWING WITH TEAM
[2023-08-12] MEDS: cefTRIAXone sodium 1 GM in 0.9 % Sodium Chloride 50 ML IV (11:27)
--- NOTE | 2023-08-12 12:08 | P.CONAN_ITS ---
HPI - Anesthesia Eval Consult details Narrative: 53 yo female patient for Trachostomy and Gtube placement. Admitted on 08/02/23 with acute on chronic respirawtory failure. Failed Bipap and required intubation 08/05/23. Now with failure to wean off vent. For tracheostomy. PMF Active Problems Active Problems: All Active Problems Encephalopathy acute (Acute) Opioid dependence (Acute) Type 2 diabetes mellitus (Acute) Diastolic heart failure (Acute) Intensive care (ICU) myopathy (Acute) Acute exacerbation of chronic obstructive airways disease (Acute) Acute on chronic respiratory failure with hypoxia and hypercapnia (Acute) CHITO (obstructive sleep apnea) (Acute) Obesity hypoventilation syndrome (Acute) COPD (chronic obstructive pulmonary disease) (Acute) Pneumonia (Acute) Chronic respiratory failure (Acute) Acute respiratory distress (Acute) Obesity with alveolar hypoventilation (Acute) Aspiration into airway (Acute) Morbid Obesity BMI 38.8 Past Medical History Medical History Type 2 diabetes mellitus Opioid dependence Intensive care (ICU) myopathy Asthma CHITO (obstructive sleep apnea) Constipation Salmonella gastroenteritis Obesity with alveolar hypoventilation Congestive heart failure Chronic constipation Acute respiratory failure Hypertensive cardiovascular disease Pulmonary nodule Chronic respiratory failure Tobacco abuse Asthma-COPD overlap syndrome Hyperlipidemia, unspecified Essential hypertension Chronic respiratory failure Family History Family History Father Diabetes Other Asthma Family history of problems with anesthesia: Unobtainable Surgical History Surgical History H/O tubal ligation History of Problems with Anesthesia: Unobtainable Social History Social History Household Members: Children Household Members Other:: daughter Housing: Apartment Do you presently have visiting nurse or other home services: Yes Unable to assess alcohol history related to: Unknown Alcohol intake: never Comment: bilateral wrist restraints for airway safety Patient Tobacco Use Status: Former Tobacco user Quit Date: February 2022 Tobacco use type: Cigarette Cigarettes Per Day: 1 Years Smoked: 35 e-Cigarette/Vaping Use: Currently Using Second Hand Smoke Exposure: No Substance Use Type: Opiates Advance Directives Date on File: 06/12/21 service: No Current occupational status: unemployed and disabled Meds Allergies Allergy/AdvReac Type Severity Reaction Status Date / Time No Known Allergies Allergy Verified 08/02/23 13:35 [No Known Allergies*] Active Medications: Current Medications Acetaminophen (Acetaminophen 325 Mg Tablet) 975 mg PO Q6H PRN PRN Reason: Pain, Mild (Pain Scale 1-3) Last Admin: 08/08/23 13:30 Dose: 975 mg Acetazolamide (Acetazolamide Sodium 500 Mg Vial) 500 mg IVPUSH BID [facility] Last Admin: 08/12/23 07:38 Dose: 500 mg Albuterol/Ipratropium (Albuterol/Iprat 2.5/0.5mg 3 Ml Ampul.Neb) 3 ml INHALE RQ 4H WHILE AWAKE [facility] Last Admin: 08/12/23 11:38 Dose: 3 ml Calcitonin [place] (Calcitonin,[place],Synth Nasal 3.7 Ml Bottle) 1 spray NOSTRIL-B DAILY [facility] Last Admin: 08/12/23 07:39 Dose: 1 spray Chlorhexidine Gluconate (Chlorhexidine Gluc Oral Rinse 15 Ml Mouthwash) 15 ml BUCCAL TID [facility] Last Admin: 08/12/23 07:39 Dose: 15 ml Diltiazem HCl (Diltiazem Hcl 60 Mg Tablet) 60 mg PO QID [facility]; Protocol Last Admin: 08/12/23 07:38 Dose: 60 mg Famotidine (Famotidine/Pf 20 Mg/2 Ml Vial) 20 mg IVPUSH DAILY [facility] Last Admin: 08/12/23 07:38 Dose: 20 mg Glucose (Glucose Gel 15 Gm Gel..Gram.) 15 gm PO Q15M PRN; Protocol PRN Reason: per Hypoglycemia Standing Ord. Heparin Sodium (Porcine) (Heparin Sodium,Porcine 5,000 Unit/Ml Vial) 5,000 unit SUBCUT Q8H [facility] Last Admin: 08/12/23 07:39 Dose: 5,000 unit Dextrose (D10) 250 mls @ 750 mls/hr IV Q15M PRN; Protocol PRN Reason: per Hypoglycemia Standing Ord. Ceftriaxone Sodium 1 gm/ (Sodium Chloride) 50 mls @ 100 mls/hr IV Q24H [facility] Last Infusion: 08/12/23 12:05 Dose: Infused Propofol (Diprivan) 1,000 mg in 100 mls @ 0 mls/hr IVCONT .Q0M [facility]; Protocol Last Admin: 08/12/23 12:06 Dose: 40 mcg/kg/min, 21.62 mls/hr Insulin Glargine (Insulin Glargine,Hum.Rec.Anlog 100 Unit/Ml 10 Ml Vial) 35 unit SUBCUT BEDTIME [facility] Last Admin: 08/11/23 21:33 Dose: 35 unit Insulin Human Lispro (Insulin Lispro 100 Unit/Ml 3 Ml Vial) 0 unit SUBCUT Q6H [facility]; Protocol Last Admin: 08/12/23 06:18 Dose: 2 unit Lactic Acid (Ammonium Lactate 12 % Lotion 226 Gm Bottle) 1 appl TOPICAL DAILY PRN; Protocol PRN Reason: Dry Skin Lidocaine (Lidocaine 4 % Patch Adh..Patch) 1 patch TRANSDERMA DAILY PRN PRN Reason: Pain Metoprolol Tartrate (Metoprolol Tartrate 5 Mg/5 Ml Vial) 5 mg IVPUSH Q6H [facility]; Protocol Last Admin: 08/12/23 09:50 Dose: 5 mg Midazolam HCl (Midazolam Hcl/Pf 2 Mg/2 Ml Vial) 4 mg IVPUSH Q2H PRN PRN Reason: ventilator synchrony Last Admin: 08/11/23 17:29 Dose: 4 mg Ondansetron HCl (Ondansetron Hcl 4 Mg/2 Ml Vial) 4 mg IVPUSH Q8H PRN PRN Reason: Nausea and Vomiting Last Admin: 08/05/23 04:20 Dose: 4 mg Sodium Chloride (0.9 % Sodium Chloride Flush 3 Ml Syringe) [facility] Admin: 08/12/23 07:30 Dose: 3 ml Home Medications ?Medication ?Instructions ?Recorded ?Confirmed ?Last Taken ?Type loratadine 10 mg tablet (Claritin) 10 mg PO DAILY 12/30/19 08/03/23 05/18/23 History montelukast 10 mg tablet 10 mg PO BEDTIME 12/30/19 08/03/23 05/18/23 History diltiazem HCl 360 mg capsule,24 360 mg PO DAILY 11/16/20 08/03/23 05/18/23 History hr,extended release (Tiadylt ER) roflumilast 500 mcg tablet 500 mcg PO DAILY 11/16/20 08/03/23 05/18/23 History (Daliresp) rosuvastatin 5 mg tablet 5 mg PO BEDTIME 0908/03/23 05/18/23 History metformin 500 mg tablet,extended 500 mg PO DAILY 05/18/21 08/03/23 05/18/23 History release 24 hr methadone 10 mg/mL oral concentrate 50 mg PO DAILY 06/06/21 08/03/23 08/02/23 09:00 History hydralazine 25 mg tablet 25 mg PO TIDWM 11/02/21 08/03/23 05/18/23 History insulin lispro 100 unit/mL 4 unit subcut TIDAC PRN 11/02/21 08/03/23 05/18/23 History subcutaneous solution Hyperglycemia clonazepam 1 mg tablet 1 mg PO BID PRN Anxiety 06/28/22 08/03/23 Unknown History lamotrigine 150 mg tablet 150 mg PO BID 07/29/22 08/03/23 05/18/23 History calcitonin (salmon) 200 1 spray intranasal DAILY 09/30/22 08/03/23 05/18/23 History unit/actuation nasal spray insulin glargine 100 unit/mL 45 unit subcut BEDTIME 09/30/22 08/03/23 05/18/23 History subcutaneous solution (Lantus U-100 Insulin) docusate sodium 100 mg capsule 100 mg PO BID PRN constipation 10/20/22 08/03/23 Unknown History nebulizers 11/08/22 07/16/23 02/02/23 09:00 History polyethylene glycol 3350 17 17 g PO DAILY PRN constipation 12/21/22 08/03/23 02/20/23 History gram/dose oral powder (Miralax) ammonium lactate 12 % lotion 1 appl topical DAILY PRN Dry Skin 02/02/23 08/03/23 05/18/23 History diclofenac sodium 1 % topical gel 4 g topical QID PRN Pain 05/04/23 08/03/23 Unknown History zolpidem 5 mg tablet 5 mg PO BEDTIME PRN Sleep 05/04/23 08/03/23 Unknown History cholecalciferol (vitamin D3) 1,250 1,250 mcg PO MOTH 05/19/23 08/03/23 Unknown History mcg (50,000 unit) capsule lidocaine 5 % topical patch 1 patch topical DAILY PRN Pain 05/19/23 08/03/23 Unknown History azathioprine 50 mg tablet 100 mg PO DAILY 06/24/23 08/03/23 Unknown History Exam Height,Weight and Vital Signs: Height 5 ft Weight 90.1 kg Last Vital Signs Temp 101.3 F H 08/12/23 11:00 Pulse 110 H 08/12/23 11:38 Resp 19 08/12/23 11:38 BP 114/57 L 08/12/23 11:00 Pulse Ox 90 L 08/12/23 11:00 O2 Del Method Mechanical Ventilation 08/12/23 11:00 O2 Flow Rate 90 08/05/23 15:52 FiO2 40 08/12/23 11:39 Pertinent Lab Results Pertinent Lab Results: Laboratory Tests 08/02/23 08/02/23 08/02/23 13:45 14:29 14:32 WBC 10.1 RBC 3.65 L D Hgb 11.2 L Hct 35.7 L MCV 97.8 MCH 30.7 MCHC 31.4 RDW 14.8 Plt Count 197 D MPV 8.8 L Immature Gran % (Auto) 1.3 H Neut % (Auto) 93.0 H Lymph % (Auto) 2.3 L [place] % (Auto) 2.8 Eos % (Auto) 0.3 Baso % (Auto) 0.3 Lymph # (Auto) 0.2 L [place] # (Auto) 0.3 Eos # (Auto) 0.0 Baso # (Auto) 0.0 Abs Immat Gran (auto) 0.13 H Absolute Neuts (auto) 9.4 H Absolute Nucleated RBC 0.000 Nucleated RBC % (auto) 0.0 Neutrophils % (Manual) Band Neutrophils % Lymphocytes % (Manual) Monocytes % (Manual) Basophils % (Manual) Metamyelocytes % Myelocytes % Abs Neuts (Manual) Lymphocytes # (Manual) Monocytes # (Manual) Basophils # (Manual) Metamyelocytes # Myelocytes # Nucleated RBCs Toxic Granulation Dohle Bodies Platelet Estimate Large Platelets Plt Morphology Comment RBC Morphology Polychromasia Hypochromasia Ovalocytes Warner Cells Smear Tech's Comments VERIFIED Smear Path Review O2 Saturation ABG pH at Pt Temp ABG pCO2 at Pt Temp ABG pO2 at Pt Temp ABG HCO3 ABG Base Excess (Actual) VBG pH 7.29 L VBG pCO2 76 VBG pO2 88 VBG HCO3 36 H VBG O2 Saturation 99.0 VBG Base Excess 7.6 Sodium 137 Potassium 4.5 D Chloride 97 Carbon Dioxide 29 Anion Gap 16 BUN 18 H Creatinine 0.65 Estim Creat Clear Calc 100.4 Estimated GFR > 60 POC Glucose Random Glucose 309 H Lactic Acid 1.2 Calcium 8.8 D Phosphorus Magnesium 1.6 Total Bilirubin 0.3 AST 36 H ALT 45 H Alkaline Phosphatase 61 Troponin I High Sens 8.7 D Total Protein 6.9 Albumin 3.8 Urine Color Urine Appearance Urine pH Ur Specific [place] Urine Protein Urine Glucose (UA) Urine Ketones Urine Blood Urine Nitrite Ur Leukocyte Esterase Urine RBC Urine WBC Ur Squamous Epith Cells Urine Bacteria Hyaline Casts Urine Opiates Screen Ur Buprenorphine Scrn Ur Oxycodone Screen Urine Methadone Screen Urine Fentanyl Screen Ur Barbiturates Screen Ur Phencyclidine Scrn Ur Amphetamines Screen U Benzodiazepines Scrn Urine Cocaine Screen U Marijuana (THC) Screen Influenza Type A (PCR) Influenza Type B (PCR) RSV RNA Qual (PCR) SARS-CoV-2 RNA (RT-PCR) 08/02/23 08/02/23 08/02/23 18:50 19:42 21:18 WBC RBC Hgb Hct MCV MCH MCHC RDW Plt Count MPV Immature Gran % (Auto) Neut % (Auto) Lymph % (Auto) [place] % (Auto) Eos % (Auto) Baso % (Auto) Lymph # (Auto) [place] # (Auto) Eos # (Auto) Baso # (Auto) Abs Immat Gran (auto) Absolute Neuts (auto) Absolute Nucleated RBC Nucleated RBC % (auto) Neutrophils % (Manual) Band Neutrophils % Lymphocytes % (Manual) Monocytes % (Manual) Basophils % (Manual) Metamyelocytes % Myelocytes % Abs Neuts (Manual) Lymphocytes # (Manual) Monocytes # (Manual) Basophils # (Manual) Metamyelocytes # Myelocytes # Nucleated RBCs Toxic Granulation Dohle Bodies Platelet Estimate Large Platelets Plt Morphology Comment RBC Morphology Polychromasia Hypochromasia Ovalocytes Warner Cells Smear Tech's Comments Smear Path Review O2 Saturation ABG pH at Pt Temp ABG pCO2 at Pt Temp ABG pO2 at Pt Temp ABG HCO3 ABG Base Excess (Actual) VBG pH 7.29 L VBG pCO2 71 VBG pO2 102 VBG HCO3 35 H VBG O2 Saturation 100.0 VBG Base Excess 6.5 Sodium Potassium Chloride Carbon Dioxide Anion Gap BUN Creatinine Estim Creat Clear Calc Estimated GFR POC Glucose 403 H* Random Glucose Lactic Acid Calcium Phosphorus Magnesium Total Bilirubin AST ALT Alkaline Phosphatase Troponin I High Sens Total Protein Albumin Urine Color Yellow Urine Appearance Clear Urine pH 6.0 Ur Specific [place] 1.020 Urine Protein Negative Urine Glucose (UA) >=1000 H Urine Ketones Negative Urine Blood Negative Urine Nitrite Negative Ur Leukocyte Esterase Negative Urine RBC 0-2 Urine WBC 0-5 Ur Squamous Epith Cells 3-5 Urine Bacteria None Seen Hyaline Casts 0-2 Urine Opiates Screen Not Detected Ur Buprenorphine Scrn Not Detected Ur Oxycodone Screen Not Detected Urine Methadone Screen Positive H Urine Fentanyl Screen Not Detected Ur Barbiturates Screen Not Detected Ur Phencyclidine Scrn Not Detected Ur Amphetamines Screen Not Detected U Benzodiazepines Scrn Not Detected Urine Cocaine Screen Not Detected U Marijuana (THC) Screen Not Detected Influenza Type A (PCR) NEGATIVE Influenza Type B (PCR) NEGATIVE RSV RNA Qual (PCR) NEGATIVE SARS-CoV-2 RNA (RT-PCR) NEGATIVE 08/03/23 08/03/23 08/03/23 02:38 07:36 07:49 WBC 8.2 RBC 3.51 L Hgb 10.5 L Hct 33.7 L MCV 96.0 MCH 29.9 MCHC 31.2 RDW 14.6 Plt Count 201 MPV 9.0 L Immature Gran % (Auto) 1.2 H Neut % (Auto) 93.2 H Lymph % (Auto) 2.7 L [place] % (Auto) 2.8 Eos % (Auto) 0.0 Baso % (Auto) 0.1 Lymph # (Auto) 0.2 L [place] # (Auto) 0.2 Eos # (Auto) 0.0 Baso # (Auto) 0.0 Abs Immat Gran (auto) 0.10 H Absolute Neuts (auto) 7.6 Absolute Nucleated RBC 0.020 H Nucleated RBC % (auto) 0.2 Neutrophils % (Manual) Band Neutrophils % Lymphocytes % (Manual) Monocytes % (Manual) Basophils % (Manual) Metamyelocytes % Myelocytes % Abs Neuts (Manual) Lymphocytes # (Manual) Monocytes # (Manual) Basophils # (Manual) Metamyelocytes # Myelocytes # Nucleated RBCs Toxic Granulation Dohle Bodies Platelet Estimate Large Platelets Plt Morphology Comment RBC Morphology Polychromasia Hypochromasia Ovalocytes [place] Cells Smear Tech's Comments VERIFIED Smear Path Review O2 Saturation ABG pH at Pt Temp ABG pCO2 at Pt Temp ABG pO2 at Pt Temp ABG HCO3 ABG Base Excess (Actual) VBG pH VBG pCO2 VBG pO2 VBG HCO3 VBG O2 Saturation VBG Base Excess Sodium 140 Potassium 3.7 Chloride 97 Carbon Dioxide 33 H Anion Gap 14 BUN 24 H Creatinine 0.64 Estim Creat Clear Calc 100.6 Estimated GFR > 60 POC Glucose 289 H 247 H Random Glucose 297 H Lactic Acid Calcium 9.7 D Phosphorus Magnesium Total Bilirubin 0.2 AST 16 ALT 37 H Alkaline Phosphatase 62 Troponin I High Sens Total Protein 6.2 L Albumin 3.7 Urine Color Urine Appearance Urine pH Ur Specific [place] Urine Protein Urine Glucose (UA) Urine Ketones Urine Blood Urine Nitrite Ur Leukocyte Esterase Urine RBC Urine WBC Ur Squamous Epith Cells Urine Bacteria Hyaline Casts Urine Opiates Screen Ur Buprenorphine Scrn Ur Oxycodone Screen Urine Methadone Screen Urine Fentanyl Screen Ur Barbiturates Screen Ur Phencyclidine Scrn Ur Amphetamines Screen U Benzodiazepines Scrn Urine Cocaine Screen U Marijuana (THC) Screen Influenza Type A (PCR) Influenza Type B (PCR) RSV RNA Qual (PCR) SARS-CoV-2 RNA (RT-PCR) 08/03/23 08/03/23 08/03/23 11:09 16:54 20:42 WBC RBC Hgb Hct MCV MCH MCHC RDW Plt Count MPV Immature Gran % (Auto) Neut % (Auto) Lymph % (Auto) [place] % (Auto) Eos % (Auto) Baso % (Auto) Lymph # (Auto) [place] # (Auto) Eos # (Auto) Baso # (Auto) Abs Immat Gran (auto) Absolute Neuts (auto) Absolute Nucleated RBC Nucleated RBC % (auto) Neutrophils % (Manual) Band Neutrophils % Lymphocytes % (Manual) Monocytes % (Manual) Basophils % (Manual) Metamyelocytes % Myelocytes % Abs Neuts (Manual) Lymphocytes # (Manual) Monocytes # (Manual) Basophils # (Manual) Metamyelocytes # Myelocytes # Nucleated RBCs Toxic Granulation Dohle Bodies Platelet Estimate Large Platelets Plt Morphology Comment RBC Morphology Polychromasia Hypochromasia Ovalocytes Warner Cells Smear Tech's Comments Smear Path Review O2 Saturation ABG pH at Pt Temp ABG pCO2 at Pt Temp ABG pO2 at Pt Temp ABG HCO3 ABG Base Excess (Actual) VBG pH VBG pCO2 VBG pO2 VBG HCO3 VBG O2 Saturation VBG Base Excess Sodium Potassium Chloride Carbon Dioxide Anion Gap BUN Creatinine Estim Creat Clear Calc Estimated GFR POC Glucose 332 H 255 H 292 H Random Glucose Lactic Acid Calcium Phosphorus Magnesium Total Bilirubin AST ALT Alkaline Phosphatase Troponin I High Sens Total Protein Albumin Urine Color Urine Appearance Urine pH Ur Specific [place] Urine Protein Urine Glucose (UA) Urine Ketones Urine Blood Urine Nitrite Ur Leukocyte Esterase Urine RBC Urine WBC Ur Squamous Epith Cells Urine Bacteria Hyaline Casts Urine Opiates Screen Ur Buprenorphine Scrn Ur Oxycodone Screen Urine Methadone Screen Urine Fentanyl Screen Ur Barbiturates Screen Ur Phencyclidine Scrn Ur Amphetamines Screen U Benzodiazepines Scrn Urine Cocaine Screen U Marijuana (THC) Screen Influenza Type A (PCR) Influenza Type B (PCR) RSV RNA Qual (PCR) SARS-CoV-2 RNA (RT-PCR) 08/04/23 08/04/23 08/04/23 05:55 07:26 11:41 WBC RBC Hgb Hct MCV MCH MCHC RDW Plt Count MPV Immature Gran % (Auto) Neut % (Auto) Lymph % (Auto) [place] % (Auto) Eos % (Auto) Baso % (Auto) Lymph # (Auto) [place] # (Auto) Eos # (Auto) Baso # (Auto) Abs Immat Gran (auto) Absolute Neuts (auto) Absolute Nucleated RBC Nucleated RBC % (auto) Neutrophils % (Manual) Band Neutrophils % Lymphocytes % (Manual) Monocytes % (Manual) Basophils % (Manual) Metamyelocytes % Myelocytes % Abs Neuts (Manual) Lymphocytes # (Manual) Monocytes # (Manual) Basophils # (Manual) Metamyelocytes # Myelocytes # Nucleated RBCs Toxic Granulation Dohle Bodies Platelet Estimate Large Platelets Plt Morphology Comment RBC Morphology Polychromasia Hypochromasia Ovalocytes [place] Cells Smear Tech's Comments Smear Path Review O2 Saturation 94.0 ABG pH at Pt Temp 7.31 L ABG pCO2 at Pt Temp 75 H* ABG pO2 at Pt Temp 78 L ABG HCO3 39 H ABG Base Excess (Actual) 10.2 VBG pH VBG pCO2 VBG pO2 VBG HCO3 VBG O2 Saturation VBG Base Excess Sodium Potassium Chloride Carbon Dioxide Anion Gap BUN Creatinine Estim Creat Clear Calc Estimated GFR POC Glucose 297 H 238 H Random Glucose Lactic Acid Calcium Phosphorus Magnesium Total Bilirubin AST ALT Alkaline Phosphatase Troponin I High Sens Total Protein Albumin Urine Color Urine Appearance Urine pH Ur Specific [place] Urine Protein Urine Glucose (UA) Urine Ketones Urine Blood Urine Nitrite Ur Leukocyte Esterase Urine RBC Urine WBC Ur Squamous Epith Cells Urine Bacteria Hyaline Casts Urine Opiates Screen Ur Buprenorphine Scrn Ur Oxycodone Screen Urine Methadone Screen Urine Fentanyl Screen Ur Barbiturates Screen Ur Phencyclidine Scrn Ur Amphetamines Screen U Benzodiazepines Scrn Urine Cocaine Screen U Marijuana (THC) Screen Influenza Type A (PCR) Influenza Type B (PCR) RSV RNA Qual (PCR) SARS-CoV-2 RNA (RT-PCR) 08/04/23 08/04/23 08/05/23 16:37 21:06 07:00 WBC RBC Hgb Hct MCV MCH MCHC RDW Plt Count MPV Immature Gran % (Auto) Neut % (Auto) Lymph % (Auto) [place] % (Auto) Eos % (Auto) Baso % (Auto) Lymph # (Auto) [place] # (Auto) Eos # (Auto) Baso # (Auto) Abs Immat Gran (auto) Absolute Neuts (auto) Absolute Nucleated RBC Nucleated RBC % (auto) Neutrophils % (Manual) Band Neutrophils % Lymphocytes % (Manual) Monocytes % (Manual) Basophils % (Manual) Metamyelocytes % Myelocytes % Abs Neuts (Manual) Lymphocytes # (Manual) Monocytes # (Manual) Basophils # (Manual) Metamyelocytes # Myelocytes # Nucleated RBCs Toxic Granulation Dohle Bodies Platelet Estimate Large Platelets Plt Morphology Comment RBC Morphology Polychromasia Hypochromasia Ovalocytes [employer] Cells Smear Tech's Comments Smear Path Review O2 Saturation ABG pH at Pt Temp ABG pCO2 at Pt Temp ABG pO2 at Pt Temp ABG HCO3 ABG Base Excess (Actual) VBG pH VBG pCO2 VBG pO2 VBG HCO3 VBG O2 Saturation VBG Base Excess Sodium Potassium Chloride Carbon Dioxide Anion Gap BUN Creatinine Estim Creat Clear Calc Estimated GFR POC Glucose 284 H 239 H 78 Random Glucose Lactic Acid Calcium Phosphorus Magnesium Total Bilirubin AST ALT Alkaline Phosphatase Troponin I High Sens Total Protein Albumin Urine Color Urine Appearance Urine pH Ur Specific [place] Urine Protein Urine Glucose (UA) Urine Ketones Urine Blood Urine Nitrite Ur Leukocyte Esterase Urine RBC Urine WBC Ur Squamous Epith Cells Urine Bacteria Hyaline Casts Urine Opiates Screen Ur Buprenorphine Scrn Ur Oxycodone Screen Urine Methadone Screen Urine Fentanyl Screen Ur Barbiturates Screen Ur Phencyclidine Scrn Ur Amphetamines Screen U Benzodiazepines Scrn Urine Cocaine Screen U Marijuana (THC) Screen Influenza Type A (PCR) Influenza Type B (PCR) RSV RNA Qual (PCR) SARS-CoV-2 RNA (RT-PCR) 08/05/23 08/05/23 08/05/23 10:55 15:38 15:40 WBC RBC Hgb Hct MCV MCH MCHC RDW Plt Count MPV Immature Gran % (Auto) Neut % (Auto) Lymph % (Auto) [place] % (Auto) Eos % (Auto) Baso % (Auto) Lymph # (Auto) [place] # (Auto) Eos # (Auto) Baso # (Auto) Abs Immat Gran (auto) Absolute Neuts (auto) Absolute Nucleated RBC Nucleated RBC % (auto) Neutrophils % (Manual) Band Neutrophils % Lymphocytes % (Manual) Monocytes % (Manual) Basophils % (Manual) Metamyelocytes % Myelocytes % Abs Neuts (Manual) Lymphocytes # (Manual) Monocytes # (Manual) Basophils # (Manual) Metamyelocytes # Myelocytes # Nucleated RBCs Toxic Granulation Dohle Bodies Platelet Estimate Large Platelets Plt Morphology Comment RBC Morphology Polychromasia Hypochromasia Ovalocytes [employer] Smear Tech's Comments Smear Path Review O2 Saturation 90.0 ABG pH at Pt Temp 7.23 L ABG pCO2 at Pt Temp 94 H* ABG pO2 at Pt Temp 66 L ABG HCO3 40 H ABG Base Excess (Actual) 9.1 VBG pH VBG pCO2 VBG pO2 VBG HCO3 VBG O2 Saturation VBG Base Excess Sodium Potassium Chloride Carbon Dioxide Anion Gap BUN Creatinine Estim Creat Clear Calc Estimated GFR POC Glucose 147 H 284 H Random Glucose Lactic Acid Calcium Phosphorus Magnesium Total Bilirubin AST ALT Alkaline Phosphatase Troponin I High Sens Total Protein Albumin Urine Color Urine Appearance Urine pH Ur Specific [place] Urine Protein Urine Glucose (UA) Urine Ketones Urine Blood Urine Nitrite Ur Leukocyte Esterase Urine RBC Urine WBC Ur Squamous Epith Cells Urine Bacteria Hyaline Casts Urine Opiates Screen Ur Buprenorphine Scrn Ur Oxycodone Screen Urine Methadone Screen Urine Fentanyl Screen Ur Barbiturates Screen Ur Phencyclidine Scrn Ur Amphetamines Screen U Benzodiazepines Scrn Urine Cocaine Screen U Marijuana (THC) Screen Influenza Type A (PCR) Influenza Type B (PCR) RSV RNA Qual (PCR) SARS-CoV-2 RNA (RT-PCR) 08/05/23 08/05/23 08/05/23 16:12 16:23 17:03 WBC 10.9 H RBC 3.85 L Hgb 11.5 L Hct 37.6 MCV 97.7 MCH 29.9 MCHC 30.6 L RDW 15.2 Plt Count 225 MPV 9.3 L Immature Gran % (Auto) Neut % (Auto) Lymph % (Auto) [place] % (Auto) Eos % (Auto) Baso % (Auto) Lymph # (Auto) [place] # (Auto) Eos # (Auto) Baso # (Auto) Abs Immat Gran (auto) Absolute Neuts (auto) Absolute Nucleated RBC 0.060 H Nucleated RBC % (auto) 0.6 H Neutrophils % (Manual) Band Neutrophils % Lymphocytes % (Manual) Monocytes % (Manual) Basophils % (Manual) Metamyelocytes % Myelocytes % Abs Neuts (Manual) Lymphocytes # (Manual) Monocytes # (Manual) Basophils # (Manual) Metamyelocytes # Myelocytes # Nucleated RBCs Toxic Granulation Dohle Bodies Platelet Estimate Large Platelets Plt Morphology Comment RBC Morphology Polychromasia Hypochromasia Ovalocytes [employer] Cells Smear Tech's Comments Smear Path Review O2 Saturation 87.0 ABG pH at Pt Temp 7.25 L ABG pCO2 at Pt Temp 90 H* ABG pO2 at Pt Temp 62 L ABG HCO3 40 H ABG Base Excess (Actual) 9.3 VBG pH VBG pCO2 VBG pO2 VBG HCO3 VBG O2 Saturation VBG Base Excess Sodium 140 Potassium 4.6 D Chloride 96 Carbon Dioxide 31 H Anion Gap 18 BUN 18 H Creatinine 0.61 Estim Creat Clear Calc 105.6 Estimated GFR > 60 POC Glucose 299 H Random Glucose 310 H Lactic Acid Calcium 9.3 Phosphorus Magnesium Total Bilirubin AST ALT Alkaline Phosphatase Troponin I High Sens Total Protein Albumin Urine Color Urine Appearance Urine pH Ur Specific [place] Urine Protein Urine Glucose (UA) Urine Ketones Urine Blood Urine Nitrite Ur Leukocyte Esterase Urine RBC Urine WBC Ur Squamous Epith Cells Urine Bacteria Hyaline Casts Urine Opiates Screen Ur Buprenorphine Scrn Ur Oxycodone Screen Urine Methadone Screen Urine Fentanyl Screen Ur Barbiturates Screen Ur Phencyclidine Scrn Ur Amphetamines Screen U Benzodiazepines Scrn Urine Cocaine Screen U Marijuana (THC) Screen Influenza Type A (PCR) Influenza Type B (PCR) RSV RNA Qual (PCR) SARS-CoV-2 RNA (RT-PCR) 08/05/23 08/05/23 08/05/23 17:51 18:36 20:51 WBC RBC Hgb Hct MCV MCH MCHC RDW Plt Count MPV Immature Gran % (Auto) Neut % (Auto) Lymph % (Auto) [place] % (Auto) Eos % (Auto) Baso % (Auto) Lymph # (Auto) [place] # (Auto) Eos # (Auto) Baso # (Auto) Abs Immat Gran (auto) Absolute Neuts (auto) Absolute Nucleated RBC Nucleated RBC % (auto) Neutrophils % (Manual) Band Neutrophils % Lymphocytes % (Manual) Monocytes % (Manual) Basophils % (Manual) Metamyelocytes % Myelocytes % Abs Neuts (Manual) Lymphocytes # (Manual) Monocytes # (Manual) Basophils # (Manual) Metamyelocytes # Myelocytes # Nucleated RBCs Toxic Granulation Dohle Bodies Platelet Estimate Large Platelets Plt Morphology Comment RBC Morphology Polychromasia Hypochromasia Ovalocytes [employer] Smear Tech's Comments Smear Path Review O2 Saturation 86.0 ABG pH at Pt Temp 7.39 ABG pCO2 at Pt Temp 60 H* ABG pO2 at Pt Temp 52 L ABG HCO3 37 H ABG Base Excess (Actual) 9.4 VBG pH VBG pCO2 VBG pO2 VBG HCO3 VBG O2 Saturation VBG Base Excess Sodium Potassium Chloride Carbon Dioxide Anion Gap BUN Creatinine Estim Creat Clear Calc Estimated GFR POC Glucose 297 H 218 H Random Glucose Lactic Acid Calcium Phosphorus Magnesium Total Bilirubin AST ALT Alkaline Phosphatase Troponin I High Sens Total Protein Albumin Urine Color Urine Appearance Urine pH Ur Specific [place] Urine Protein Urine Glucose (UA) Urine Ketones Urine Blood Urine Nitrite Ur Leukocyte Esterase Urine RBC Urine WBC Ur Squamous Epith Cells Urine Bacteria Hyaline Casts Urine Opiates Screen Ur Buprenorphine Scrn Ur Oxycodone Screen Urine Methadone Screen Urine Fentanyl Screen Ur Barbiturates Screen Ur Phencyclidine Scrn Ur Amphetamines Screen U Benzodiazepines Scrn Urine Cocaine Screen U Marijuana (THC) Screen Influenza Type A (PCR) Influenza Type B (PCR) RSV RNA Qual (PCR) SARS-CoV-2 RNA (RT-PCR) 08/06/23 08/06/23 08/06/23 05:35 05:44 06:21 WBC 8.1 RBC 3.83 L Hgb 11.4 L Hct 35.8 L MCV 93.5 MCH 29.8 MCHC 31.8 RDW 14.6 Plt Count 211 MPV 8.9 L Immature Gran % (Auto) 1.6 H Neut % (Auto) 81.5 H Lymph % (Auto) 12.7 L [place] % (Auto) 3.4 Eos % (Auto) 0.4 Baso % (Auto) 0.4 Lymph # (Auto) 1.0 L [place] # (Auto) 0.3 Eos # (Auto) 0.0 Baso # (Auto) 0.0 Abs Immat Gran (auto) 0.13 H Absolute Neuts (auto) 6.6 Absolute Nucleated RBC 0.130 H Nucleated RBC % (auto) 1.6 H Neutrophils % (Manual) Band Neutrophils % Lymphocytes % (Manual) Monocytes % (Manual) Basophils % (Manual) Metamyelocytes % Myelocytes % Abs Neuts (Manual) Lymphocytes # (Manual) Monocytes # (Manual) Basophils # (Manual) Metamyelocytes # Myelocytes # Nucleated RBCs Toxic Granulation Dohle Bodies Platelet Estimate Large Platelets Plt Morphology Comment RBC Morphology Polychromasia Hypochromasia Ovalocytes [employer] Smear Tech's Comments Smear Path Review SEE NOTE O2 Saturation ABG pH at Pt Temp ABG pCO2 at Pt Temp ABG pO2 at Pt Temp ABG HCO3 ABG Base Excess (Actual) VBG pH 7.55 H VBG pCO2 40 VBG pO2 66 VBG HCO3 35 H VBG O2 Saturation 94.0 VBG Base Excess 12.2 Sodium 141 Potassium 2.7 L* D Chloride 98 Carbon Dioxide 30 H Anion Gap 16 BUN 16 Creatinine 0.59 Estim Creat Clear Calc 109.1 Estimated GFR > 60 POC Glucose 122 H Random Glucose 146 H Lactic Acid Calcium 9.8 Phosphorus 0.7 L* Magnesium 1.5 L Total Bilirubin 0.4 AST 21 ALT 42 H Alkaline Phosphatase 58 Troponin I High Sens Total Protein 6.5 Albumin 3.8 Urine Color Urine Appearance Urine pH Ur Specific [place] Urine Protein Urine Glucose (UA) Urine Ketones Urine Blood Urine Nitrite Ur Leukocyte Esterase Urine RBC Urine WBC Ur Squamous Epith Cells Urine Bacteria Hyaline Casts Urine Opiates Screen Ur Buprenorphine Scrn Ur Oxycodone Screen Urine Methadone Screen Urine Fentanyl Screen Ur Barbiturates Screen Ur Phencyclidine Scrn Ur Amphetamines Screen U Benzodiazepines Scrn Urine Cocaine Screen U Marijuana (THC) Screen Influenza Type A (PCR) Influenza Type B (PCR) RSV RNA Qual (PCR) SARS-CoV-2 RNA (RT-PCR) 08/06/23 08/06/23 08/06/23 11:43 17:39 19:40 WBC RBC Hgb Hct MCV MCH MCHC RDW Plt Count MPV Immature Gran % (Auto) Neut % (Auto) Lymph % (Auto) [place] % (Auto) Eos % (Auto) Baso % (Auto) Lymph # (Auto) [place] # (Auto) Eos # (Auto) Baso # (Auto) Abs Immat Gran (auto) Absolute Neuts (auto) Absolute Nucleated RBC Nucleated RBC % (auto) Neutrophils % (Manual) Band Neutrophils % Lymphocytes % (Manual) Monocytes % (Manual) Basophils % (Manual) Metamyelocytes % Myelocytes % Abs Neuts (Manual) Lymphocytes # (Manual) Monocytes # (Manual) Basophils # (Manual) Metamyelocytes # Myelocytes # Nucleated RBCs Toxic Granulation Dohle Bodies Platelet Estimate Large Platelets Plt Morphology Comment RBC Morphology Polychromasia Hypochromasia Ovalocytes [employer] Smear Tech's Comments Smear Path Review O2 Saturation ABG pH at Pt Temp ABG pCO2 at Pt Temp ABG pO2 at Pt Temp ABG HCO3 ABG Base Excess (Actual) VBG pH VBG pCO2 VBG pO2 VBG HCO3 VBG O2 Saturation VBG Base Excess Sodium 142 Potassium 3.5 D Chloride 102 Carbon Dioxide 29 Anion Gap 15 BUN 13 Creatinine 0.50 Estim Creat Clear Calc 128.9 Estimated GFR > 60 POC Glucose 110 175 H Random Glucose 141 H Lactic Acid Calcium 9.1 D Phosphorus 4.1 Magnesium 1.7 Total Bilirubin AST ALT Alkaline Phosphatase Troponin I High Sens Total Protein Albumin 3.4 L Urine Color Urine Appearance Urine pH Ur Specific [place] Urine Protein Urine Glucose (UA) Urine Ketones Urine Blood Urine Nitrite Ur Leukocyte Esterase Urine RBC Urine WBC Ur Squamous Epith Cells Urine Bacteria Hyaline Casts Urine Opiates Screen Ur Buprenorphine Scrn Ur Oxycodone Screen Urine Methadone Screen Urine Fentanyl Screen Ur Barbiturates Screen Ur Phencyclidine Scrn Ur Amphetamines Screen U Benzodiazepines Scrn Urine Cocaine Screen U Marijuana (THC) Screen Influenza Type A (PCR) Influenza Type B (PCR) RSV RNA Qual (PCR) SARS-CoV-2 RNA (RT-PCR) 08/06/23 08/06/23 08/07/23 20:24 23:48 05:16 WBC 5.3 RBC 3.55 L Hgb 10.9 L Hct 34.3 L MCV 96.6 MCH 30.7 MCHC 31.8 RDW 15.3 Plt Count 183 MPV 9.0 L Immature Gran % (Auto) 3.8 H Neut % (Auto) 74.9 H Lymph % (Auto) 15.4 L [place] % (Auto) 4.2 Eos % (Auto) 1.1 Baso % (Auto) 0.6 Lymph # (Auto) 0.8 L [place] # (Auto) 0.2 Eos # (Auto) 0.1 Baso # (Auto) 0.0 Abs Immat Gran (auto) 0.20 H Absolute Neuts (auto) 3.9 Absolute Nucleated RBC 0.170 H Nucleated RBC % (auto) 3.2 H Neutrophils % (Manual) Band Neutrophils % Lymphocytes % (Manual) Monocytes % (Manual) Basophils % (Manual) Metamyelocytes % Myelocytes % Abs Neuts (Manual) Lymphocytes # (Manual) Monocytes # (Manual) Basophils # (Manual) Metamyelocytes # Myelocytes # Nucleated RBCs Toxic Granulation Dohle Bodies Platelet Estimate Large Platelets Plt Morphology Comment RBC Morphology Polychromasia Hypochromasia Ovalocytes [employer] Smear Tech's Comments Smear Path Review O2 Saturation ABG pH at Pt Temp ABG pCO2 at Pt Temp ABG pO2 at Pt Temp ABG HCO3 ABG Base Excess (Actual) VBG pH VBG pCO2 VBG pO2 VBG HCO3 VBG O2 Saturation VBG Base Excess Sodium 141 Potassium 3.7 Chloride 101 Carbon Dioxide 30 H Anion Gap 14 BUN 9 Creatinine 0.47 L Estim Creat Clear Calc 137.0 Estimated GFR > 60 POC Glucose 132 H 128 H Random Glucose 123 H Lactic Acid Calcium 9.5 Phosphorus 3.5 Magnesium 1.6 Total Bilirubin AST ALT Alkaline Phosphatase Troponin I High Sens Total Protein Albumin 3.4 L Urine Color Urine Appearance Urine pH Ur Specific [place] Urine Protein Urine Glucose (UA) Urine Ketones Urine Blood Urine Nitrite Ur Leukocyte Esterase Urine RBC Urine WBC Ur Squamous Epith Cells Urine Bacteria Hyaline Casts Urine Opiates Screen Ur Buprenorphine Scrn Ur Oxycodone Screen Urine Methadone Screen Urine Fentanyl Screen Ur Barbiturates Screen Ur Phencyclidine Scrn Ur Amphetamines Screen U Benzodiazepines Scrn Urine Cocaine Screen U Marijuana (THC) Screen Influenza Type A (PCR) Influenza Type B (PCR) RSV RNA Qual (PCR) SARS-CoV-2 RNA (RT-PCR) 08/07/23 08/07/23 08/07/23 05:26 05:56 11:42 WBC RBC Hgb Hct MCV MCH MCHC RDW Plt Count MPV Immature Gran % (Auto) Neut % (Auto) Lymph % (Auto) [place] % (Auto) Eos % (Auto) Baso % (Auto) Lymph # (Auto) [place] # (Auto) Eos # (Auto) Baso # (Auto) Abs Immat Gran (auto) Absolute Neuts (auto) Absolute Nucleated RBC Nucleated RBC % (auto) Neutrophils % (Manual) Band Neutrophils % Lymphocytes % (Manual) Monocytes % (Manual) Basophils % (Manual) Metamyelocytes % Myelocytes % Abs Neuts (Manual) Lymphocytes # (Manual) Monocytes # (Manual) Basophils # (Manual) Metamyelocytes # Myelocytes # Nucleated RBCs Toxic Granulation Dohle Bodies Platelet Estimate Large Platelets Plt Morphology Comment RBC Morphology Polychromasia Hypochromasia Ovalocytes [employer] Smear Tech's Comments Smear Path Review O2 Saturation ABG pH at Pt Temp ABG pCO2 at Pt Temp ABG pO2 at Pt Temp ABG HCO3 ABG Base Excess (Actual) VBG pH 7.38 VBG pCO2 55 VBG pO2 42 VBG HCO3 33 H VBG O2 Saturation 69.0 VBG Base Excess 7.6 Sodium Potassium Chloride Carbon Dioxide Anion Gap BUN Creatinine Estim Creat Clear Calc Estimated GFR POC Glucose 129 H 176 H Random Glucose Lactic Acid Calcium Phosphorus Magnesium Total Bilirubin AST ALT Alkaline Phosphatase Troponin I High Sens Total Protein Albumin Urine Color Urine Appearance Urine pH Ur Specific [place] Urine Protein Urine Glucose (UA) Urine Ketones Urine Blood Urine Nitrite Ur Leukocyte Esterase Urine RBC Urine WBC Ur Squamous Epith Cells Urine Bacteria Hyaline Casts Urine Opiates Screen Ur Buprenorphine Scrn Ur Oxycodone Screen Urine Methadone Screen Urine Fentanyl Screen Ur Barbiturates Screen Ur Phencyclidine Scrn Ur Amphetamines Screen U Benzodiazepines Scrn Urine Cocaine Screen U Marijuana (THC) Screen Influenza Type A (PCR) Influenza Type B (PCR) RSV RNA Qual (PCR) SARS-CoV-2 RNA (RT-PCR) 08/07/23 08/07/23 08/08/23 18:08 20:04 00:21 WBC RBC Hgb Hct MCV MCH MCHC RDW Plt Count MPV Immature Gran % (Auto) Neut % (Auto) Lymph % (Auto) [place] % (Auto) Eos % (Auto) Baso % (Auto) Lymph # (Auto) [place] # (Auto) Eos # (Auto) Baso # (Auto) Abs Immat Gran (auto) Absolute Neuts (auto) Absolute Nucleated RBC Nucleated RBC % (auto) Neutrophils % (Manual) Band Neutrophils % Lymphocytes % (Manual) Monocytes % (Manual) Basophils % (Manual) Metamyelocytes % Myelocytes % Abs Neuts (Manual) Lymphocytes # (Manual) Monocytes # (Manual) Basophils # (Manual) Metamyelocytes # Myelocytes # Nucleated RBCs Toxic Granulation Dohle Bodies Platelet Estimate Large Platelets Plt Morphology Comment RBC Morphology Polychromasia Hypochromasia Ovalocytes [employer] Smear Tech's Comments Smear Path Review O2 Saturation ABG pH at Pt Temp ABG pCO2 at Pt Temp ABG pO2 at Pt Temp ABG HCO3 ABG Base Excess (Actual) VBG pH VBG pCO2 VBG pO2 VBG HCO3 VBG O2 Saturation VBG Base Excess Sodium Potassium Chloride Carbon Dioxide Anion Gap BUN Creatinine Estim Creat Clear Calc Estimated GFR POC Glucose 184 H 141 H 180 H Random Glucose Lactic Acid Calcium Phosphorus Magnesium Total Bilirubin AST ALT Alkaline Phosphatase Troponin I High Sens Total Protein Albumin Urine Color Urine Appearance Urine pH Ur Specific [place] Urine Protein Urine Glucose (UA) Urine Ketones Urine Blood Urine Nitrite Ur Leukocyte Esterase Urine RBC Urine WBC Ur Squamous Epith Cells Urine Bacteria Hyaline Casts Urine Opiates Screen Ur Buprenorphine Scrn Ur Oxycodone Screen Urine Methadone Screen Urine Fentanyl Screen Ur Barbiturates Screen Ur Phencyclidine Scrn Ur Amphetamines Screen U Benzodiazepines Scrn Urine Cocaine Screen U Marijuana (THC) Screen Influenza Type A (PCR) Influenza Type B (PCR) RSV RNA Qual (PCR) SARS-CoV-2 RNA (RT-PCR) 08/08/23 08/08/23 08/08/23 05:03 12:14 17:49 WBC 4.6 L RBC 4.29 D Hgb 12.7 Hct 39.3 MCV 91.6 D MCH 29.6 MCHC 32.3 RDW 15.2 Plt Count 170 MPV 9.3 L Immature Gran % (Auto) Cancelled Neut % (Auto) Cancelled Lymph % (Auto) Cancelled [place] % (Auto) Cancelled Eos % (Auto) Cancelled Baso % (Auto) Cancelled Lymph # (Auto) Cancelled [place] # (Auto) Cancelled Eos # (Auto) Cancelled Baso # (Auto) Cancelled Abs Immat Gran (auto) Cancelled Absolute Neuts (auto) Cancelled Absolute Nucleated RBC 0.070 H Nucleated RBC % (auto) 1.5 H Neutrophils % (Manual) 73 Band Neutrophils % 8 H Lymphocytes % (Manual) 14 L Monocytes % (Manual) 4 Basophils % (Manual) Metamyelocytes % Myelocytes % 1 Abs Neuts (Manual) 3.7 Lymphocytes # (Manual) 0.6 L Monocytes # (Manual) 0.2 Basophils # (Manual) Metamyelocytes # Myelocytes # Nucleated RBCs Toxic Granulation Dohle Bodies Platelet Estimate NORMAL Large Platelets Plt Morphology Comment NORMAL RBC Morphology NORMAL Polychromasia 1+ (0-2) Hypochromasia Ovalocytes 1+ (5-14) [place] Cells 1+ (0-2) Smear Tech's Comments Smear Path Review O2 Saturation ABG pH at Pt Temp ABG pCO2 at Pt Temp ABG pO2 at Pt Temp ABG HCO3 ABG Base Excess (Actual) VBG pH 7.48 H VBG pCO2 37 VBG pO2 44 VBG HCO3 28 H VBG O2 Saturation 75.0 VBG Base Excess 4.6 Sodium 138 Potassium 3.4 Chloride 100 Carbon Dioxide 27 Anion Gap 14 BUN 8 L Creatinine 0.55 Estim Creat Clear Calc 118.2 Estimated GFR > 60 POC Glucose 199 H 205 H Random Glucose 179 H Lactic Acid Calcium 9.5 Phosphorus 3.5 Magnesium 1.4 L* Total Bilirubin AST ALT Alkaline Phosphatase Troponin I High Sens Total Protein Albumin 3.3 L Urine Color Urine Appearance Urine pH Ur Specific [place] Urine Protein Urine Glucose (UA) Urine Ketones Urine Blood Urine Nitrite Ur Leukocyte Esterase Urine RBC Urine WBC Ur Squamous Epith Cells Urine Bacteria Hyaline Casts Urine Opiates Screen Ur Buprenorphine Scrn Ur Oxycodone Screen Urine Methadone Screen Urine Fentanyl Screen Ur Barbiturates Screen Ur Phencyclidine Scrn Ur Amphetamines Screen U Benzodiazepines Scrn Urine Cocaine Screen U Marijuana (THC) Screen Influenza Type A (PCR) Influenza Type B (PCR) RSV RNA Qual (PCR) SARS-CoV-2 RNA (RT-PCR) 08/08/23 08/09/23 08/09/23 20:16 00:50 05:07 WBC RBC Hgb Hct MCV MCH MCHC RDW Plt Count MPV Immature Gran % (Auto) Neut % (Auto) Lymph % (Auto) [place] % (Auto) Eos % (Auto) Baso % (Auto) Lymph # (Auto) [place] # (Auto) Eos # (Auto) Baso # (Auto) Abs Immat Gran (auto) Absolute Neuts (auto) Absolute Nucleated RBC Nucleated RBC % (auto) Neutrophils % (Manual) Band Neutrophils % Lymphocytes % (Manual) Monocytes % (Manual) Basophils % (Manual) Metamyelocytes % Myelocytes % Abs Neuts (Manual) Lymphocytes # (Manual) Monocytes # (Manual) Basophils # (Manual) Metamyelocytes # Myelocytes # Nucleated RBCs Toxic Granulation Dohle Bodies Platelet Estimate Large Platelets Plt Morphology Comment RBC Morphology Polychromasia Hypochromasia Ovalocytes [employer] Smear Tech's Comments Smear Path Review O2 Saturation ABG pH at Pt Temp ABG pCO2 at Pt Temp ABG pO2 at Pt Temp ABG HCO3 ABG Base Excess (Actual) VBG pH 7.36 VBG pCO2 49 VBG pO2 53 VBG HCO3 28 H VBG O2 Saturation 80.0 VBG Base Excess 2.0 Sodium 137 Potassium 3.5 Chloride 100 Carbon Dioxide 26 Anion Gap 15 BUN 7 L Creatinine 0.59 Estim Creat Clear Calc 110.2 Estimated GFR > 60 POC Glucose 226 H Random Glucose 213 H Lactic Acid Calcium 9.9 Phosphorus 3.7 Magnesium 1.6 Total Bilirubin AST ALT Alkaline Phosphatase Troponin I High Sens Total Protein Albumin Urine Color Urine Appearance Urine pH Ur Specific [place] Urine Protein Urine Glucose (UA) Urine Ketones Urine Blood Urine Nitrite Ur Leukocyte Esterase Urine RBC Urine WBC Ur Squamous Epith Cells Urine Bacteria Hyaline Casts Urine Opiates Screen Ur Buprenorphine Scrn Ur Oxycodone Screen Urine Methadone Screen Urine Fentanyl Screen Ur Barbiturates Screen Ur Phencyclidine Scrn Ur Amphetamines Screen U Benzodiazepines Scrn Urine Cocaine Screen U Marijuana (THC) Screen Influenza Type A (PCR) Influenza Type B (PCR) RSV RNA Qual (PCR) SARS-CoV-2 RNA (RT-PCR) 08/09/23 08/09/23 08/09/23 05:10 11:22 17:32 WBC 4.3 L RBC 3.47 L Hgb 10.1 L D Hct 32.6 L MCV 93.9 MCH 29.1 MCHC 31.0 RDW 15.3 Plt Count 168 MPV 9.0 L Immature Gran % (Auto) Cancelled Neut % (Auto) Cancelled Lymph % (Auto) Cancelled [place] % (Auto) Cancelled Eos % (Auto) Cancelled Baso % (Auto) Cancelled Lymph # (Auto) Cancelled [place] # (Auto) Cancelled Eos # (Auto) Cancelled Baso # (Auto) Cancelled Abs Immat Gran (auto) Cancelled Absolute Neuts (auto) Cancelled Absolute Nucleated RBC 0.030 H Nucleated RBC % (auto) 0.7 H Neutrophils % (Manual) 78 H Band Neutrophils % 7 H Lymphocytes % (Manual) 9 L Monocytes % (Manual) 4 Basophils % (Manual) 1 Metamyelocytes % 1 Myelocytes % Abs Neuts (Manual) 3.7 Lymphocytes # (Manual) 0.4 L Monocytes # (Manual) 0.2 Basophils # (Manual) Metamyelocytes # Myelocytes # Nucleated RBCs Toxic Granulation Dohle Bodies Platelet Estimate NORMAL Large Platelets Plt Morphology Comment NORMAL RBC Morphology NOTED Polychromasia Hypochromasia 1+ (5-14) Ovalocytes [employer] Smear Tech's Comments Smear Path Review O2 Saturation ABG pH at Pt Temp ABG pCO2 at Pt Temp ABG pO2 at Pt Temp ABG HCO3 ABG Base Excess (Actual) VBG pH VBG pCO2 VBG pO2 VBG HCO3 VBG O2 Saturation VBG Base Excess Sodium 138 Potassium 4.0 Chloride 101 Carbon Dioxide 26 Anion Gap 15 BUN 8 L Creatinine 0.60 Estim Creat Clear Calc 108.4 Estimated GFR > 60 POC Glucose 226 H 199 H Random Glucose 240 H Lactic Acid Calcium 10.1 Phosphorus 3.7 Magnesium 1.9 Total Bilirubin AST ALT Alkaline Phosphatase Troponin I High Sens Total Protein Albumin 3.9 Urine Color Urine Appearance Urine pH Ur Specific [place] Urine Protein Urine Glucose (UA) Urine Ketones Urine Blood Urine Nitrite Ur Leukocyte Esterase Urine RBC Urine WBC Ur Squamous Epith Cells Urine Bacteria Hyaline Casts Urine Opiates Screen Ur Buprenorphine Scrn Ur Oxycodone Screen Urine Methadone Screen Urine Fentanyl Screen Ur Barbiturates Screen Ur Phencyclidine Scrn Ur Amphetamines Screen U Benzodiazepines Scrn Urine Cocaine Screen U Marijuana (THC) Screen Influenza Type A (PCR) Influenza Type B (PCR) RSV RNA Qual (PCR) SARS-CoV-2 RNA (RT-PCR) 08/09/23 08/09/23 08/10/23 20:48 23:27 05:01 WBC RBC Hgb Hct MCV MCH MCHC RDW Plt Count MPV Immature Gran % (Auto) Neut % (Auto) Lymph % (Auto) [place] % (Auto) Eos % (Auto) Baso % (Auto) Lymph # (Auto) [place] # (Auto) Eos # (Auto) Baso # (Auto) Abs Immat Gran (auto) Absolute Neuts (auto) Absolute Nucleated RBC Nucleated RBC % (auto) Neutrophils % (Manual) Band Neutrophils % Lymphocytes % (Manual) Monocytes % (Manual) Basophils % (Manual) Metamyelocytes % Myelocytes % Abs Neuts (Manual) Lymphocytes # (Manual) Monocytes # (Manual) Basophils # (Manual) Metamyelocytes # Myelocytes # Nucleated RBCs Toxic Granulation Dohle Bodies Platelet Estimate Large Platelets Plt Morphology Comment RBC Morphology Polychromasia Hypochromasia Ovalocytes [place] [employer] Smear Tech's Comments Smear Path Review O2 Saturation ABG pH at Pt Temp ABG pCO2 at Pt Temp ABG pO2 at Pt Temp ABG HCO3 ABG Base Excess (Actual) VBG pH 7.33 VBG pCO2 50 VBG pO2 55 VBG HCO3 27 H VBG O2 Saturation 83.0 VBG Base Excess 1.0 Sodium Potassium Chloride Carbon Dioxide Anion Gap BUN Creatinine Estim Creat Clear Calc Estimated GFR POC Glucose 204 H 220 H Random Glucose Lactic Acid Calcium Phosphorus Magnesium Total Bilirubin AST ALT Alkaline Phosphatase Troponin I High Sens Total Protein Albumin Urine Color Urine Appearance Urine pH Ur Specific [place] Urine Protein Urine Glucose (UA) Urine Ketones Urine Blood Urine Nitrite Ur Leukocyte Esterase Urine RBC Urine WBC Ur Squamous Epith Cells Urine Bacteria Hyaline Casts Urine Opiates Screen Ur Buprenorphine Scrn Ur Oxycodone Screen Urine Methadone Screen Urine Fentanyl Screen Ur Barbiturates Screen Ur Phencyclidine Scrn Ur Amphetamines Screen U Benzodiazepines Scrn Urine Cocaine Screen U Marijuana (THC) Screen Influenza Type A (PCR) Influenza Type B (PCR) RSV RNA Qual (PCR) SARS-CoV-2 RNA (RT-PCR) 08/10/23 08/10/23 08/10/23 05:03 11:32 17:34 WBC 4.7 L RBC 3.27 L Hgb 9.6 L Hct 31.1 L MCV 95.1 MCH 29.4 MCHC 30.9 L RDW 15.8 Plt Count 198 MPV 9.7 Immature Gran % (Auto) Cancelled Neut % (Auto) Cancelled Lymph % (Auto) Cancelled [place] % (Auto) Cancelled Eos % (Auto) Cancelled Baso % (Auto) Cancelled Lymph # (Auto) Cancelled [place] # (Auto) Cancelled Eos # (Auto) Cancelled Baso # (Auto) Cancelled Abs Immat Gran (auto) Cancelled Absolute Neuts (auto) Cancelled Absolute Nucleated RBC 0.020 H Nucleated RBC % (auto) 0.4 H Neutrophils % (Manual) 69 Band Neutrophils % 9 H Lymphocytes % (Manual) 13 L Monocytes % (Manual) 4 Basophils % (Manual) Metamyelocytes % 3 Myelocytes % 2 Abs Neuts (Manual) 3.7 Lymphocytes # (Manual) 0.6 L Monocytes # (Manual) 0.2 Basophils # (Manual) Metamyelocytes # 0.1 Myelocytes # 0.1 Nucleated RBCs Toxic Granulation Dohle Bodies Platelet Estimate NORMAL Large Platelets Plt Morphology Comment NORMAL RBC Morphology NOTED Polychromasia 1+ (0-2) Hypochromasia 1+ (5-14) Ovalocytes [place] Cells Smear Tech's Comments Smear Path Review O2 Saturation ABG pH at Pt Temp ABG pCO2 at Pt Temp ABG pO2 at Pt Temp ABG HCO3 ABG Base Excess (Actual) VBG pH VBG pCO2 VBG pO2 VBG HCO3 VBG O2 Saturation VBG Base Excess Sodium 136 Potassium 4.2 Chloride 100 Carbon Dioxide 24 Anion Gap 16 BUN 14 Creatinine 0.58 Estim Creat Clear Calc 112.1 Estimated GFR > 60 POC Glucose 219 H 216 H Random Glucose 264 H Lactic Acid Calcium 10.2 Phosphorus 4.3 Magnesium 1.5 L Total Bilirubin AST ALT Alkaline Phosphatase Troponin I High Sens Total Protein Albumin 3.6 Urine Color Urine Appearance Urine pH Ur Specific [place] Urine Protein Urine Glucose (UA) Urine Ketones Urine Blood Urine Nitrite Ur Leukocyte Esterase Urine RBC Urine WBC Ur Squamous Epith Cells Urine Bacteria Hyaline Casts Urine Opiates Screen Ur Buprenorphine Scrn Ur Oxycodone Screen Urine Methadone Screen Urine Fentanyl Screen Ur Barbiturates Screen Ur Phencyclidine Scrn Ur Amphetamines Screen U Benzodiazepines Scrn Urine Cocaine Screen U Marijuana (THC) Screen Influenza Type A (PCR) Influenza Type B (PCR) RSV RNA Qual (PCR) SARS-CoV-2 RNA (RT-PCR) 08/10/23 08/11/23 08/11/23 19:58 00:13 04:42 WBC 6.7 RBC 3.28 L Hgb 9.7 L Hct 30.2 L MCV 92.1 MCH 29.6 MCHC 32.1 RDW 15.7 Plt Count 250 D MPV 9.6 Immature Gran % (Auto) Cancelled Neut % (Auto) Cancelled Lymph % (Auto) Cancelled [place] % (Auto) Cancelled Eos % (Auto) Cancelled Baso % (Auto) Cancelled Lymph # (Auto) Cancelled [place] # (Auto) Cancelled Eos # (Auto) Cancelled Baso # (Auto) Cancelled Abs Immat Gran (auto) Cancelled Absolute Neuts (auto) Cancelled Absolute Nucleated RBC 0.040 H Nucleated RBC % (auto) 0.6 H Neutrophils % (Manual) 61 Band Neutrophils % 11 H Lymphocytes % (Manual) 7 L Monocytes % (Manual) 11 Basophils % (Manual) Metamyelocytes % 6 Myelocytes % 4 Abs Neuts (Manual) 4.8 Lymphocytes # (Manual) 0.5 L Monocytes # (Manual) 0.7 Basophils # (Manual) Metamyelocytes # 0.4 Myelocytes # 0.3 Nucleated RBCs Toxic Granulation PRESENT Dohle Bodies PRESENT Platelet Estimate NORMAL Large Platelets PRESENT Plt Morphology Comment NOTED RBC Morphology NOTED Polychromasia 1+ (0-2) Hypochromasia Ovalocytes [employer] Smear Tech's Comments Smear Path Review O2 Saturation ABG pH at Pt Temp ABG pCO2 at Pt Temp ABG pO2 at Pt Temp ABG HCO3 ABG Base Excess (Actual) VBG pH VBG pCO2 VBG pO2 VBG HCO3 VBG O2 Saturation VBG Base Excess Sodium 137 Potassium 3.9 Chloride 99 Carbon Dioxide 23 Anion Gap 19 BUN 11 Creatinine 0.51 Estim Creat Clear Calc 127.5 Estimated GFR > 60 POC Glucose 198 H 203 H Random Glucose 212 H Lactic Acid Calcium 9.9 Phosphorus 4.1 Magnesium 1.4 L* Total Bilirubin AST ALT Alkaline Phosphatase Troponin I High Sens Total Protein Albumin 3.4 L Urine Color Urine Appearance Urine pH Ur Specific [place] Urine Protein Urine Glucose (UA) Urine Ketones Urine Blood Urine Nitrite Ur Leukocyte Esterase Urine RBC Urine WBC Ur Squamous Epith Cells Urine Bacteria Hyaline Casts Urine Opiates Screen Ur Buprenorphine Scrn Ur Oxycodone Screen Urine Methadone Screen Urine Fentanyl Screen Ur Barbiturates Screen Ur Phencyclidine Scrn Ur Amphetamines Screen U Benzodiazepines Scrn Urine Cocaine Screen U Marijuana (THC) Screen Influenza Type A (PCR) Influenza Type B (PCR) RSV RNA Qual (PCR) SARS-CoV-2 RNA (RT-PCR) 08/11/23 08/11/23 08/11/23 04:47 11:42 17:31 WBC RBC Hgb Hct MCV MCH MCHC RDW Plt Count MPV Immature Gran % (Auto) Neut % (Auto) Lymph % (Auto) [place] % (Auto) Eos % (Auto) Baso % (Auto) Lymph # (Auto) [place] # (Auto) Eos # (Auto) Baso # (Auto) Abs Immat Gran (auto) Absolute Neuts (auto) Absolute Nucleated RBC Nucleated RBC % (auto) Neutrophils % (Manual) Band Neutrophils % Lymphocytes % (Manual) Monocytes % (Manual) Basophils % (Manual) Metamyelocytes % Myelocytes % Abs Neuts (Manual) Lymphocytes # (Manual) Monocytes # (Manual) Basophils # (Manual) Metamyelocytes # Myelocytes # Nucleated RBCs Toxic Granulation Dohle Bodies Platelet Estimate Large Platelets Plt Morphology Comment RBC Morphology Polychromasia Hypochromasia Ovalocytes [place] Cells Smear Tech's Comments Smear Path Review O2 Saturation ABG pH at Pt Temp ABG pCO2 at Pt Temp ABG pO2 at Pt Temp ABG HCO3 ABG Base Excess (Actual) VBG pH 7.39 VBG pCO2 40 VBG pO2 51 VBG HCO3 24 VBG O2 Saturation 83.0 VBG Base Excess 0.2 Sodium Potassium Chloride Carbon Dioxide Anion Gap BUN Creatinine Estim Creat Clear Calc Estimated GFR POC Glucose 263 H 206 H Random Glucose Lactic Acid Calcium Phosphorus Magnesium Total Bilirubin AST ALT Alkaline Phosphatase Troponin I High Sens Total Protein Albumin Urine Color Urine Appearance Urine pH Ur Specific [place] Urine Protein Urine Glucose (UA) Urine Ketones Urine Blood Urine Nitrite Ur Leukocyte Esterase Urine RBC Urine WBC Ur Squamous Epith Cells Urine Bacteria Hyaline Casts Urine Opiates Screen Ur Buprenorphine Scrn Ur Oxycodone Screen Urine Methadone Screen Urine Fentanyl Screen Ur Barbiturates Screen Ur Phencyclidine Scrn Ur Amphetamines Screen U Benzodiazepines Scrn Urine Cocaine Screen U Marijuana (THC) Screen Influenza Type A (PCR) Influenza Type B (PCR) RSV RNA Qual (PCR) SARS-CoV-2 RNA (RT-PCR) 08/11/23 08/11/23 08/12/23 21:17 23:46 05:20 WBC 7.7 RBC 3.26 L Hgb 9.6 L Hct 30.4 L MCV 93.3 MCH 29.4 MCHC 31.6 RDW 15.9 Plt Count 288 MPV 9.0 L Immature Gran % (Auto) Cancelled Neut % (Auto) Cancelled Lymph % (Auto) Cancelled [place] % (Auto) Cancelled Eos % (Auto) Cancelled Baso % (Auto) Cancelled Lymph # (Auto) Cancelled [place] # (Auto) Cancelled Eos # (Auto) Cancelled Baso # (Auto) Cancelled Abs Immat Gran (auto) Cancelled Absolute Neuts (auto) Cancelled Absolute Nucleated RBC 0.070 H Nucleated RBC % (auto) 0.9 H Neutrophils % (Manual) 73 Band Neutrophils % 7 H Lymphocytes % (Manual) 6 L Monocytes % (Manual) 8 Basophils % (Manual) 1 Metamyelocytes % 4 Myelocytes % 1 Abs Neuts (Manual) 6.2 Lymphocytes # (Manual) 0.5 L Monocytes # (Manual) 0.6 Basophils # (Manual) 0.1 Metamyelocytes # 0.3 Myelocytes # 0.1 Nucleated RBCs 1 H Toxic Granulation PRESENT Dohle Bodies Platelet Estimate NORMAL Large Platelets PRESENT Plt Morphology Comment NOTED RBC Morphology NOTED Polychromasia 1+ (0-2) Hypochromasia Ovalocytes [employer] Smear Tech's Comments Smear Path Review O2 Saturation ABG pH at Pt Temp ABG pCO2 at Pt Temp ABG pO2 at Pt Temp ABG HCO3 ABG Base Excess (Actual) VBG pH VBG pCO2 VBG pO2 VBG HCO3 VBG O2 Saturation VBG Base Excess Sodium 139 Potassium 3.8 Chloride 101 Carbon Dioxide 21 L Anion Gap 21 H BUN 10 Creatinine 0.50 Estim Creat Clear Calc 130.1 Estimated GFR > 60 POC Glucose 179 H 168 H Random Glucose 154 H Lactic Acid Calcium 9.7 Phosphorus 4.3 Magnesium 1.4 L* Total Bilirubin AST ALT Alkaline Phosphatase Troponin I High Sens Total Protein Albumin 3.2 L Urine Color Urine Appearance Urine pH Ur Specific [place] Urine Protein Urine Glucose (UA) Urine Ketones Urine Blood Urine Nitrite Ur Leukocyte Esterase Urine RBC Urine WBC Ur Squamous Epith Cells Urine Bacteria Hyaline Casts Urine Opiates Screen Ur Buprenorphine Scrn Ur Oxycodone Screen Urine Methadone Screen Urine Fentanyl Screen Ur Barbiturates Screen Ur Phencyclidine Scrn Ur Amphetamines Screen U Benzodiazepines Scrn Urine Cocaine Screen U Marijuana (THC) Screen Influenza Type A (PCR) Influenza Type B (PCR) RSV RNA Qual (PCR) SARS-CoV-2 RNA (RT-PCR) 08/12/23 08/12/23 05:41 06:14 WBC RBC Hgb Hct MCV MCH MCHC RDW Plt Count MPV Immature Gran % (Auto) Neut % (Auto) Lymph % (Auto) [place] % (Auto) Eos % (Auto) Baso % (Auto) Lymph # (Auto) [place] # (Auto) Eos # (Auto) Baso # (Auto) Abs Immat Gran (auto) Absolute Neuts (auto) Absolute Nucleated RBC Nucleated RBC % (auto) Neutrophils % (Manual) Band Neutrophils % Lymphocytes % (Manual) Monocytes % (Manual) Basophils % (Manual) Metamyelocytes % Myelocytes % Abs Neuts (Manual) Lymphocytes # (Manual) Monocytes # (Manual) Basophils # (Manual) Metamyelocytes # Myelocytes # Nucleated RBCs Toxic Granulation Dohle Bodies Platelet Estimate Large Platelets Plt Morphology Comment RBC Morphology Polychromasia Hypochromasia Ovalocytes [employer] Smear Tech's Comments Smear Path Review O2 Saturation ABG pH at Pt Temp ABG pCO2 at Pt Temp ABG pO2 at Pt Temp ABG HCO3 ABG Base Excess (Actual) VBG pH 7.36 VBG pCO2 44 VBG pO2 77 VBG HCO3 25 VBG O2 Saturation 97.0 VBG Base Excess 0.0 Sodium Potassium Chloride Carbon Dioxide Anion Gap BUN Creatinine Estim Creat Clear Calc Estimated GFR POC Glucose 150 H Random Glucose Lactic Acid Calcium Phosphorus Magnesium Total Bilirubin AST ALT Alkaline Phosphatase Troponin I High Sens Total Protein Albumin Urine Color Urine Appearance Urine pH Ur Specific [place] Urine Protein Urine Glucose (UA) Urine Ketones Urine Blood Urine Nitrite Ur Leukocyte Esterase Urine RBC Urine WBC Ur Squamous Epith Cells Urine Bacteria Hyaline Casts Urine Opiates Screen Ur Buprenorphine Scrn Ur Oxycodone Screen Urine Methadone Screen Urine Fentanyl Screen Ur Barbiturates Screen Ur Phencyclidine Scrn Ur Amphetamines Screen U Benzodiazepines Scrn Urine Cocaine Screen U Marijuana (THC) Screen Influenza Type A (PCR) Influenza Type B (PCR) RSV RNA Qual (PCR) SARS-CoV-2 RNA (RT-PCR) Narrative Narrative: Patient in ICU. Intubated. Ventilated. Sedated with propofol gtt Vent settings:ACPC Fi02 40% VT 320 RR 20 PEEP5 PIP 26 I:E 1:3 ETT 7.5 24CM @ lips OGT in place Airway Loose/Missing/Broken Teeth: Yes (Poor dentitio) Heart: RRR Lungs: CTAB Assessment and Plan Assessment Anesthesia Assessment: Anesthesia Plan Discussed (Discussed plan with daughter (HCP) and consent obtained) and Chart Reviewed Final Anesthetic Review Family History of Problems with Anesthesia: Unobtainable History of Problems with Anesthesia: Unobtainable NPO: Yes ASA Class: V and Emergency Final Preanesthetic Review: No Changes in Pt Med Stat, Consent Obtained/Reviewed (Obtained from patient's HCP) and Anes Risks/Benef Reviewed Patient Risk: High Procedure Risk: Intermediate Assessment/Block/Sedation in SS: Assess/Block/Sedation-SS Anesthetic Plan Anesthetic Plan: GA Disposition: Inp. Admit - ICU
[2023-08-12 12:14] LABS: Glucose, Whole Blood 223 mg/dL (60-115)
--- NOTE | 2023-08-12 13:26 | P.OP_ITS ---
Operative Note Operative Note Date of Service: 08/12/23 Narrative: Preop diagnosis: Respiratory failure Postop diagnosis: The same Procedure: PEG tube placement Surgeon: Krzysztof Bonner MD tv production assistant: MAUREEN Templeton The patient is a 53-year-old female with known COPD, multiple intubations the past, now with acute and chronic respiratory failure in the ICU. She was referred for PEG placement and tracheostomy tube placement. The tracheostomy tube was placed by Dr. Callahan. I had discussed PEG tube placement with the daughter for consent and she understood the technique of the procedure as well as the risks, benefits, and alternatives The patient was in a recommend position. A bite block was in position. I then inserted the gastroscope into the bite block to the oropharynx. The vocal cords were visualized. This is a [id number] stitch was seen along with the NG tube. I followed the NG tube through the esophageal slit and advanced this through the entire length of the esophagus into the stomach. The stomach was distended. Transillumination was easily seen epigastric area. Furthermore, indentation on the anterior wall of the stomach was clearly seen with pressure on this same area on the abdominal wall with a finger. This area was therefore prepped and draped. Lidocaine 1% was used for local anesthesia. A small stab incision was made. The large bore needle with a catheter was inserted and this was seen into the lumen. The guidewire was inserted through the needle and the needle was removed. I grasped the guidewire with a snare. I pulled out the guidewire along with the tube through the oral orifice. I loop the guidewire o nto the feeding tube. We then pulled the guidewire from the abdominal wall along with the feeding tube until this was snug. I inserted the endoscope again into the stomach. The inner bolster were clearly seen. I then withdrew the scope completely. Dressings were applied. The procedure was therefore completed. The patient tolerated the procedure well. There were no immediate complications. The patient was then transferred out of the OR back into the ICU with stable vital signs.
--- NOTE | 2023-08-12 13:45 | P.OP_ITS ---
Operative Note Operative Note Date of Service: 08/12/23 Narrative: Preoperative diagnosis: [] Ventilatory dependence, unable to wean Postop diagnosis: [] The same Procedure [] open tracheostomy Surgeon: [] [employer] Technician: [] Jareth Type of Anesthesia: [] General Indication for surgery: [] Vent dependent. Very short bulky neck. Corpulent patient Findings: [] Patient brought to the operating room, placed on operative table supine position, after adequate level of anesthesia was induced, the patient was already intubated had their neck and upper chest prepped and draped in usual sterile fashion using a transverse incision approximate 1 fingerbreadth above the sternal notch, this carried down through skin, subcutaneous tissue, cervical fascia. Linea cervicalis was was opened and strap muscle retracted laterally. Thyroid isthmus was divided and the trachea was identified. A transverse tracheotomy was made between the 2nd and 3rd rings and dilated. The T-tube was withdrawn to just above this tracheotomy and the number 28 Syri[place] tracheostomy tube was advanced into the distal trachea. Tracheostomy was connected to a ventilator with good chest movement, end-tidal CO2, and oxygenation was observe. Wound was irrigated secured hemostasis. It was closed in the following manner; interrupted inverted dermal 3-0 Vicryl sutures were used to approximate the skin and soft tissue on either side of the trachea. Tracheostomy was then connected via its flanges to the skin using 2-0 silk sutures. Next a Velcro tracheostomy strap was placed. Sponge, needle, and instrument counts reported correct. Patient tolerated the procedure well and at completion of this procedure patient was to have a PEG tube placed per Dr. Bonner's dictation. EBL minimal
[2023-08-12 18:01] LABS: Glucose, Whole Blood 253 mg/dL (60-115)
[2023-08-12 20:12] LABS: Anion Gap 21 (12-20); Blood Urea Nitrogen 12 mg/dL (9-16); Calcium 9.7 mg/dL (8.4-10.2); Carbon Dioxide 22 mmol/L (22-29); Chloride 99 mmol/L (96-108); Creatinine Clr Calc Pharmacy 122.7; Estimated Glomerular Filt Rate > 60; Glucose Fasting 258 mg/dL (60-99); Magnesium 1.6 mg/dL (1.6-2.6); Phosphorus 3.6 mg/dL (2.7-4.5); Potassium 3.5 mmol/L (3.3-5.1); Sodium 138 mmol/L (135-145)
[2023-08-12] MEDS: Insulin Glargine,Hum.rec.anlog 100 UNIT/ML 10 ML VIAL 35 UNIT SUBCUT (20:46)
[2023-08-12] MEDS: Potassium Chloride/H20 10 MEQ/100 ML PIGGYBACK 100 MEQ IV ×3 (20:49→22:57)
[2023-08-12] MEDS: Magnesium Sulfate/D5W 1 GM/100 ML PIGGYBACK IV (20:51)
[2023-08-12 23:47] LABS: Glucose, Whole Blood 213 mg/dL (60-115)
[2023-08-13] VITALS (38 sets, daily range): BP systolic 113–153; BP diastolic 62–90; PULSE 109–137; RESP 11–33; TEMP 34.7–38; O2SAT 89–99
[2023-08-13] MEDS: Potassium Chloride/H20 10 MEQ/100 ML PIGGYBACK 100 MEQ IV (00:01)
[2023-08-13] MEDS: Heparin Sodium,Porcine 5,000 UNIT/ML VIAL 5000 UNIT SUBCUT ×3 (00:02→17:39)
[2023-08-13] MEDS: propofoL 1,000 MG/100 ML VIAL 21.62 MG IVCONT ×3 (00:02→08:49)
[2023-08-13] MEDS: Insulin Lispro 100 UNIT/ML 3 ML VIAL SUBCUT ×4 (00:03→17:38)
[2023-08-13] MEDS: 0.9 % Sodium Chloride Flush 3 ML SYRINGE IVFLUSH ×3 (00:03→15:39)
[2023-08-13] MEDS: Metoprolol Tartrate 5 MG/5 ML VIAL IVPUSH ×4 (04:21→21:08)
[2023-08-13 05:47] LABS: VBG Base Excess -0.2 mmol/L; VBG HCO3 24 mmol/L (22-26); VBG pCO2 39 mmHg; VBG pH 7.39 (7.32-7.43); VBG pO2 57 mmHg
[2023-08-13 06:08] LABS: Venous Blood Gas Refer to POC result
[2023-08-13 06:11] LABS: Glucose, Whole Blood 204 mg/dL (60-115)
[2023-08-13] MEDS: Midazolam HCl/PF 2 MG/2 ML VIAL 4 MG IVPUSH ×7 (06:31→23:50)
[2023-08-13 06:33] LABS: Hematocrit 33.1 % (37.0-47.0); Hemoglobin 10.4 g/dl (12.0-16.0); Mean Corpuscular HGB Conc 31.4 g/dl (31.0-35.0); Mean Corpuscular Hemoglobin 29.2 pg (27.0-33.0); Mean Platelet Volume 9.9 fL (9.4-12.3); NRBC Pct Auto 0.9 /100WBC (0.0-0.2); Platelet Count 338 X10*3/uL (160-400); Red Blood Count 3.56 X10*6/uL (4.20-5.50); Red Cell Distribution Width 15.9 % (11.0-16.0)
[2023-08-13 06:34] LABS: WBC ABN SCTR FOR CBC 1; White Blood Count 8.8 X10*3/uL (4.8-10.8)
[2023-08-13 06:45] LABS: Alanine Aminotransferase 18 U/L (0-31); Albumin Level 3.2 g/dL (3.5-5.0); Alkaline Phosphatase 55 U/L (39-117); Anion Gap 18 (12-20); Aspartate Amino Transferase 15 U/L (5-31); Bilirubin Total 0.4 mg/dL (0.0-1.0); Blood Urea Nitrogen 7 mg/dL (9-16); Calcium 9.7 mg/dL (8.4-10.2); Carbon Dioxide 24 mmol/L (22-29); Chloride 102 mmol/L (96-108); Creatinine Clr Calc Pharmacy 120.4; Estimated Glomerular Filt Rate > 60; Glucose Random 227 mg/dL (60-115); Magnesium 1.6 mg/dL (1.6-2.6); Phosphorus 2.5 mg/dL (2.7-4.5); Potassium 3.5 mmol/L (3.3-5.1); Sodium 140 mmol/L (135-145); Total Protein 6.6 g/dL (6.5-8.0)
--- NOTE | 2023-08-13 07:40 | PM.PNTS ---
Subjective Subjective Date of Service: 08/13/23 Interval history: Trach site and G-tube site clean dry and intact. Postprocedure chest x-ray yesterday within normal limits. Physical Exam Vital Signs: Vital Signs: Last Vital Signs Temp 99.7 F 08/13/23 07:00 Pulse 120 H 08/13/23 07:00 Resp 20 08/13/23 07:00 BP 143/79 H 08/13/23 07:00 Pulse Ox 93 08/13/23 07:00 O2 Del Method Mechanical Ventil ation 08/13/23 07:00 O2 Flow Rate 90 08/05/23 15:52 FiO2 35 08/13/23 07:00 BMI result Body Mass Index 38.8 Procedures Date of Service Date of Service: 08/13/23 Progress Note: A&P Assessment and plan (1) Status post insertion of percutaneous endoscopic gastrostomy (PEG) tube: Status: Acute (2) Status post tracheostomy: Status: Acute Plan Can begin tube feeds. Local trach care per routine. Time Spent With Patient Time: Total time managing care of this patient today ____ minutes. Quality Stroke Does the patient have a stroke diagnosis?: No VTE Prior VTE?: No VTE Risk Level:: Medical - moderate - high VTE Device Contraindication: Treatment Not Indicated VTE Drug Contraindication: N/A - Med Ordered
[2023-08-13 07:56] LABS: Atypical Lymph Absolute Manual 0.2 x10*3/uL; Atypical Lymphs Percent Manual 2 % (0-6); Band Neutrophils Percent 18 % (3-5); Eosinophils Absolute Manual 0.2 X10*3/uL (0.0-0.4); Eosinophils Percent Manual 2 % (0-4); Lymphocytes Absolute Manual 0.4 X10*3/uL (1.2-4.9); Lymphocytes Percent Manual 4 % (20-40); Metamyelocytes Absolute 0.4 X10*3/uL; Metamyelocytes Percent 5 %; Monocytes Absolute Manual 0.4 X10*3/uL (0.1-1.2); Monocytes Percent Manual 5 % (2-11); Myelocytes Absolute 0.4 X10*/uL; Myelocytes Percent 5 %; Neutrophils Absolute Manual 6.8 X10*3/uL (2.0-8.3); Neutrophils Percent Manual 59 % (45-73); Nucleated Red Blood Cells 4 /100WBC (0-0)
[2023-08-13 07:59] LABS: Platelet Estimate NORMAL (NORMAL); Platelet Morphology Comment NORMAL; Polychromasia 1+ (0-2) /OIF; RBC Morphology NOTED
[2023-08-13] MEDS: Albuterol/Iprat 2.5/0.5MG 3 ML AMPUL.NEB INHALE ×4 (08:12→19:11)
[2023-08-13] MEDS: Potassium Phosphate/NS 15 MMOL/250 ML PLAST..BAG 62.5 MMOL IV (09:36)
[2023-08-13] MEDS: Chlorhexidine Gluc Oral Rinse 15 ML MOUTHWASH BUCCAL ×3 (09:37→21:00)
[2023-08-13] MEDS: Famotidine/PF 20 MG/2 ML VIAL IVPUSH (09:37)
[2023-08-13] MEDS: acetaZOLAMIDE sodium 500 MG VIAL IVPUSH ×2 (09:37→21:01)
[2023-08-13] MEDS: dilTIAZem HCL 60 MG TABLET PO ×4 (09:40→21:00)
[2023-08-13] MEDS: Fluconazole 100 MG TABLET PO (09:52)
[2023-08-13] MEDS: Lactulose 20 GM/30 ML SOLUTION 30 GM PO (09:52)
--- NOTE | 2023-08-13 09:53 | HO.POSTANES ---
Post Anesthesia Evaluation Post Anesthesia Evaluation Date of Service: 08/13/23 Vital Signs: Vital Signs Temp Pulse Resp BP Pulse Ox O2 Del Method FiO2 08/13/23 09:40 124 H 127/80 08/13/23 09:00 100.2 F 118 H 21 H 125/75 95 Mechanical Ventilation 35 08/13/23 08:22 125 H 25 H 08/13/23 08:19 40 08/13/23 08:00 100.2 F 125 H 20 124/70 99 Mechanical Ventilation 35 08/13/23 07:52 35 08/13/23 07:00 99.7 F 120 H 20 143/79 H 93 Mechanical Ventilation 35 08/13/23 06:00 100.4 F 123 H 25 H 140/77 H 92 Mechanical Ventilation 35 08/13/23 05:00 100.4 F 116 H 22 H 135/75 93 Mechanical Ventilation 35 08/13/23 04:57 35 08/13/23 04:00 35 08/13/23 04:00 100.4 F 109 H 28 H 137/78 92 Mechanical Ventilation 35 08/13/23 03:00 100.2 F 122 H 26 H 147/81 H 94 Mechanical Ventilation 35 08/13/23 02:00 100.2 F 119 H 26 H 150/82 H 95 Mechanical Ventilation 35 08/13/23 01:00 100.4 F 115 H 20 146/80 H 96 Mechanical Ventilation 35 08/13/23 00:00 100.4 F 116 H 27 H 147/79 H 96 Mechanical Ventilation 35 08/13/23 00:00 35 08/12/23 23:46 35 08/12/23 23:00 100.6 F H 112 H 27 H 131/75 97 Mechanical Ventilation 35 Anesthesia: General Endotracheal-GETA Mental Status: Sedated Pain Control: Satisfactory Nausea/Vomiting: None Hydration: Adequate Anesthesia-Related Issues: No Anes. Related Issues Comments: Pt is still intubated like preoperatively.
--- NOTE | 2023-08-13 10:36 | MHC.CLN ---
F/U PT WITH TRACH/PEG PLACED CURRENTLY NPO DISCUSSED AT ROUNDS WITH MD-WEANING PROPOFOL TODAY REVIEWED LABS NOTED STAGE 1 COCCYX IDENTIFIED 08/11 WHEN TF TO START; RECOMMEND GLUCERNA AT MAX GOAL RATE 55ML/HR WITH 30ML PROSOURCE Q DAY AND 240ML FREE WATER FLUSHES Q 8 HRS TO PROVIDE 1380 TOTAL KCALS (23KCALS/KG), 70G TOTAL PROTEIN (1.2G/KG), 1846ML TOTAL WATER FROM FORMULA AND FLUSHES (31ML/KG) START FORMULA AT 20ML/HR AND INCREASE BY 10ML UNTIL MAX GOAL IS ACHIEVED TF WILL PROMOTE WOUND HEALING MONITOR TOLERANCE, RESIDUALS AND LYTES
--- NOTE | 2023-08-13 11:11 | P.PNCC_ITS ---
Subjective Subjective Date of Service: 08/13/23 Interval History: 53-year-old lady with underlying morbid obesity, CHITO with hyperventilation syndrome with CO2 retention on supplemental oxygen at 3 L and nocturnal BiPAP, asthma/COPD overlap syndrome, diastolic heart failure, diabetes mellitus, opioid dependence on methadone with multiple admissions for respiratory failure admitted on 08/02/2023 with acute on chronic hypoxic and hypercapnic respiratory failure initially to telemetry michel, however on 08/05/2023 patient with worsening CO2 retention with poor improvement on BiPAP support requiring transfer to the intensive care unit and intubation. Failed extubation 08/11/2023. Now status post tracheostomy/gastrostomy on 08/12/2023. No events overnight Critical Care Time (minutes): 60 Physical Exam 2 Vital Signs: Vital Signs: Last Vital Signs Temp 100.2 F 08/13/23 10:00 Pulse 126 H 08/13/23 10:00 Resp 25 H 08/13/23 10:00 BP 136/78 08/13/23 10:00 Pulse Ox 91 L 08/13/23 10:00 O2 Del Method Mechanical Ventil ation 08/13/23 10:00 O2 Flow Rate 90 08/05/23 15:52 FiO2 35 08/13/23 10:00 BMI result Body Mass Index 38.8 Const: General: no acute distress and other (Sedated on the vent) N utritional Appearance: obese Eyes: Sclerae: sclerae normal EOM: EOMs intact bilaterally Neck: Neck: Yes no lymphadenopathy, Yes trachea midline, Yes supple and Yes tracheostomy present (On the vent) Resp: Effort & Inspection: normal respiratory effort and no respiratory distress Auscultation: clear to auscultation bilaterally Cardio: Rate: tachycardic Rhythm: regular rhythm Heart sounds: no gallops, no murmurs and no rubs GI: Inspection: Yes G-tube present Palpation (GI): Soft to palpation and Other GI palpation findings present ( Nontender) Auscultation: normal bowel sounds Extrem: General: Yes no pedal edema, No clubbing and No cyanosis Objective Data Labs 08/13/23 05:39 08/13/23 05:39 Labs: Laboratory Results - last 24 hr 08/12/23 08/12/23 08/12/23 12:09 17:57 19:43 WBC RBC Hgb Hct MCV MCH MCHC RDW Plt Count MPV Immature Gran % (Auto) Neut % (Auto) Lymph % (Auto) [place] % (Auto) Eos % (Auto) Baso % (Auto) Lymph # (Auto) [place] # (Auto) Eos # (Auto) Baso # (Auto) Abs Immat Gran (auto) Absolute Neuts (auto) Absolute Nucleated RBC Nucleated RBC % (auto) Neutrophils % (Manual) Band Neutrophils % Lymphocytes % (Manual) Atypical Lymphs % (Man) Monocytes % (Manual) Eosinophils % (Manual) Metamyelocytes % Myelocytes % Abs Neuts (Manual) Lymphocytes # (Manual) Atyp Lymphs # (Manual) Monocytes # (Manual) Eosinophils # (Manual) Metamyelocytes # Myelocytes # Nucleated RBCs Platelet Estimate Plt Morphology Comment RBC Morphology Polychromasia VBG pH VBG pCO2 VBG pO2 VBG HCO3 VBG O2 Saturation VBG Base Excess Sodium 138 Potassium 3.5 Chloride 99 Carbon Dioxide 22 Anion Gap 21 H BUN 12 Creatinine 0.53 Estim Creat Clear Calc 122.7 Estimated GFR > 60 POC Glucose 223 H 253 H Random Glucose Fasting Glucose 258 H Calcium 9.7 Phosphorus 3.6 Magnesium 1.6 Total Bilirubin AST ALT Alkaline Phosphatase Total Protein Albumin 08/12/23 08/13/23 08/13/23 23:44 05:38 05:39 WBC 8.8 RBC 3.56 L Hgb 10.4 L Hct 33.1 L MCV 93.0 MCH 29.2 MCHC 31.4 RDW 15.9 Plt Count 338 MPV 9.9 Immature Gran % (Auto) Cancelled Neut % (Auto) Cancelled Lymph % (Auto) Cancelled [place] % (Auto) Cancelled Eos % (Auto) Cancelled Baso % (Auto) Cancelled Lymph # (Auto) Cancelled [place] # (Auto) Cancelled Eos # (Auto) Cancelled Baso # (Auto) Cancelled Abs Immat Gran (auto) Cancelled Absolute Neuts (auto) Cancelled Absolute Nucleated RBC 0.080 H Nucleated RBC % (auto) 0.9 H Neutrophils % (Manual) 59 Band Neutrophils % 18 H Lymphocytes % (Manual) 4 L Atypical Lymphs % (Man) 2 Monocytes % (Manual) 5 Eosinophils % (Manual) 2 Metamyelocytes % 5 Myelocytes % 5 Abs Neuts (Manual) 6.8 Lymphocytes # (Manual) 0.4 L Atyp Lymphs # (Manual) 0.2 Monocytes # (Manual) 0.4 Eosinophils # (Manual) 0.2 Metamyelocytes # 0.4 Myelocytes # 0.4 Nucleated RBCs 4 H Platelet Estimate NORMAL Plt Morphology Comment NORMAL RBC Morphology NOTED Polychromasia 1+ (0-2) VBG pH 7.39 VBG pCO2 39 VBG pO2 57 VBG HCO3 24 VBG O2 Saturation 86.0 VBG Base Excess -0.2 Sodium 140 Potassium 3.5 Chloride 102 Carbon Dioxide 24 Anion Gap 18 BUN 7 L Creatinine 0.54 Estim Creat Clear Calc 120.4 Estimated GFR > 60 POC Glucose 213 H Random Glucose 227 H Fasting Glucose Calcium 9.7 Phosphorus 2.5 L Magnesium 1.6 Total Bilirubin 0.4 AST 15 ALT 18 Alkaline Phosphatase 55 Total Protein 6.6 Albumin 3.2 L 08/13/23 06:05 WBC RBC Hgb Hct MCV MCH MCHC RDW Plt Count MPV Immature Gran % (Auto) Neut % (Auto) Lymph % (Auto) [place] % (Auto) Eos % (Auto) Baso % (Auto) Lymph # (Auto) [place] # (Auto) Eos # (Auto) Baso # (Auto) Abs Immat Gran (auto) Absolute Neuts (auto) Absolute Nucleated RBC Nucleated RBC % (auto) Neutrophils % (Manual) Band Neutrophils % Lymphocytes % (Manual) Atypical Lymphs % (Man) Monocytes % (Manual) Eosinophils % (Manual) Metamyelocytes % Myelocytes % Abs Neuts (Manual) Lymphocytes # (Manual) Atyp Lymphs # (Manual) Monocytes # (Manual) Eosinophils # (Manual) Metamyelocytes # Myelocytes # Nucleated RBCs Platelet Estimate Plt Morphology Comment RBC Morphology Polychromasia VBG pH VBG pCO2 VBG pO2 VBG HCO3 VBG O2 Saturation VBG Base Excess Sodium Potassium Chloride Carbon Dioxide Anion Gap BUN Creatinine Estim Creat Clear Calc Estimated GFR POC Glucose 204 H Random Glucose Fasting Glucose Calcium Phosphorus Magnesium Total Bilirubin AST ALT Alkaline Phosphatase Total Protein Albumin Microbiology Microbiology Results: Microbiology 08/03/23 16:38 Sputum - Expectorated Gram Stain - Final 08/03/23 16:38 Sputum - Expectorated Sputum Culture - Preliminary Filamentous fungus 08/02/23 14:20 Blood - Venous Blood Culture - Final No growth after 5 days. 08/02/23 13:36 Blood - Venous Blood Culture - Final No growth after 5 days. Progress Note: A&P Assessment and plan (1) Status post tracheostomy: Status: Acute (2) Status post insertion of percutaneous endoscopic gastrostomy (PEG) tube: Status: Acute (3) Opioid dependence: Status: Acute (4) Type 2 diabetes mellitus: Status: Acute (5) Diastolic heart failure: Status: Acute (6) Acute on chronic respiratory failure with hypoxia and hypercapnia: Status: Acute (7) CHITO (obstructive sleep apnea): Status: Acute (8) Obesity hypoventilation syndrome: Status: Acute (9) COPD (chronic obstructive pulmonary disease): Status: Acute Plan Assessment: 53-year-old lady with underlying CHITO with obesity hyperventilation, asthma/COPD, obesity, diastolic heart failure admitted with acute on chronic hypoxic and hypercapnic respiratory failure now requiring ventilatory support. Plan: Neuro: Poor arousal with sedation vacation, methadone stopped. MRI head is essentially normal. Cardiac: Acute on chronic diastolic congestive heart failure resolved with diuresis. Pulmonary: Acute on chronic hypoxic and hypercapnic respiratory failure now requiring ventilatory support. Failed extubation 08/11/2023. Now status post tracheostomy/gastrostomy on 08/12/2023. Continue to titrate off ventilatory support as tolerated. Renal: No acute issues. Endo: No acute issues. GI: No acute issues. ID: No acute issues Heme/Onc: No acute issues. Psych: No acute issues. Underlying opioid dependence. Miscellaneous: No acute issues. Prophylaxis: Heparin, famotidine Diet: Tube feed Critical care time spent: 60 minutes Quality Stroke Does the patient have a stroke diagnosis?: No VTE Prior VTE?: No VTE Risk Level:: Medical - moderate - high VTE Device Contraindication: Treatment Not Indicated VTE Drug Contraindication: N/A - Med Ordered
[2023-08-13 12:01] LABS: Glucose, Whole Blood 237 mg/dL (60-115)
[2023-08-13] MEDS: cefTRIAXone sodium 1 GM in 0.9 % Sodium Chloride 50 ML IV (12:23)
--- NOTE | 2023-08-13 14:07 | HO.WOUND ---
Wound Consult: Initial 53yr old F?admitted to [facility] [place] on? 08/02/23 - See progress notes and H&P for detailed history.?Patient currently ICU level of care. Wound consult placed for coccyx. Patient remains ICU level of care - and critically ill with pressers in recent history last administered 08/11/23 per chart review. The patient remains critically ill, the location and the shape of the wound edges are atypical of pressure injury development however given the location over a bony prominence will be staged as deep tissue injury, Inpatient wound care nurse will continue to follow. Sacrococcygeal Etiology: Deep Tissue Injury ?? Measurements: see charting for detailed measurement Wound Bed: purple nonblanchable tissue with areas of epidermal lifting Drainage / Odor: None Edges: ?irregular Pauline wound: MASD (Moisture Associated Skin Damage)? - hyperpigmented tissue - No Induration, Fluctuance or Warmth noted Pain: intubated Goals of Treatment: ?Foam to aid in off loading pressure and Triad to protect from moisture Chart review reveals the patient was turned and repositioned?@ 2 hours, Low air loss mattress in use, pillows were used for off loading and repositioning staff will attempt to off load with wedges as given her heavy mid section the wedges will likely provide increased off loading, Triad and foam dressing to the sacrum was in use and at the bedside. ?? Recommendations: 1. Turn and Reposition every 2 hours and as needed for patient comfort.? Use pillows or wedges to support off loading positions. 2. Off Load all bony prominences with use of pillows and heel boots if needed.? Apply Preventative foams where needed. ? 3. Monitor for incontinence and moisture control, use barrier creams when needed for prevention and treatment. 4. Provide adequate and supplemental nutrition.? 5. Order or Continue low air loss mattress. 6. When applicable maintain blood glucose levels per Providers order. 7. Sacrococcygeal - Off Load Pressure - Cleanse with PH balance spray or wipes, pat dry. ?Apply thin layer of Triad to wound bed. Do not remove all of paste between applications as this may cause further skin damage.? Cover with foam dressing to aid in off loading and protection from friction. Apply Triad to perianal and perineal area to protect from moisture and friction. Re-consult wound care Nurse for wound deterioration or wound changes.
--- NOTE | 2023-08-13 14:21 | MHC.CM.PN ---
Peg+Trach placed yesterday, 08/12/23. A referral was sent to [facility] 08/11. A clinical update was sent this am. RIGOBERTO Tom via BLS once accepted. CM will follow.
--- NOTE | 2023-08-13 15:27 | PM.EVENT ---
Event Note Date of Service: 08/13/23 Event Note: seen in the ICU tolerating PEG feeds still on ventilator with tracheostomy abd soft ok to advance PEG feeds to meet nutritional requirements rest of care as per ICU team Time Spent With Patient Time: Total time managing care of this patient today ____ minutes.
[2023-08-13 17:22] LABS: Glucose, Whole Blood 292 mg/dL (60-115)
[2023-08-13] MEDS: Insulin Glargine,Hum.rec.anlog 100 UNIT/ML 10 ML VIAL 35 UNIT SUBCUT (21:01)
[2023-08-13 23:58] LABS: Glucose, Whole Blood 273 mg/dL (60-115)
[2023-08-14] VITALS (33 sets, daily range): BP systolic 111–168; BP diastolic 58–87; PULSE 107–139; RESP 13–38; TEMP 35–38.3; O2SAT 91–96
[2023-08-14] MEDS: propofoL 1,000 MG/100 ML VIAL 16.22 MG IVCONT (00:09)
[2023-08-14] MEDS: Heparin Sodium,Porcine 5,000 UNIT/ML VIAL 5000 UNIT SUBCUT ×3 (00:25→16:56)
[2023-08-14] MEDS: 0.9 % Sodium Chloride Flush 3 ML SYRINGE IVFLUSH ×3 (00:25→15:56)
[2023-08-14] MEDS: Insulin Lispro 100 UNIT/ML 3 ML VIAL SUBCUT ×4 (00:25→18:14)
[2023-08-14] MEDS: fentaNYL citrate/PF 100 MCG/2 ML VIAL IVPUSH (01:25)
[2023-08-14] MEDS: Metoprolol Tartrate 5 MG/5 ML VIAL IVPUSH ×4 (04:04→22:22)
[2023-08-14 05:25] LABS: VBG Base Excess 1.8 mmol/L; VBG HCO3 27 mmol/L (22-26); VBG pCO2 49 mmHg; VBG pH 7.35 (7.32-7.43); VBG pO2 59 mmHg
[2023-08-14 05:39] LABS: Venous Blood Gas Refer to POC result
[2023-08-14 05:59] LABS: Glucose, Whole Blood 285 mg/dL (60-115)
[2023-08-14 06:36] LABS: Hematocrit 32.7 % (37.0-47.0); Hemoglobin 10.2 g/dl (12.0-16.0); Mean Corpuscular HGB Conc 31.2 g/dl (31.0-35.0); Mean Corpuscular Hemoglobin 29.6 pg (27.0-33.0); Mean Corpuscular Volume 94.8 fL (80.0-98.0); Mean Platelet Volume 9.7 fL (9.4-12.3); NRBC Pct Auto 1.4 /100WBC (0.0-0.2); Platelet Count 366 X10*3/uL (160-400); Red Blood Count 3.45 X10*6/uL (4.20-5.50); WBC ABN SCTR FOR CBC 1; White Blood Count 9.5 X10*3/uL (4.8-10.8)
[2023-08-14 06:48] LABS: Anion Gap 15 (12-20); Blood Urea Nitrogen 12 mg/dL (9-16); Calcium 9.9 mg/dL (8.4-10.2); Carbon Dioxide 27 mmol/L (22-29); Chloride 100 mmol/L (96-108); Creatinine Clr Calc Pharmacy 114.1; Estimated Glomerular Filt Rate > 60; Glucose Random 339 mg/dL (60-115); Magnesium 1.4 mg/dL (1.6-2.6); Phosphorus 3.3 mg/dL (2.7-4.5); Potassium 3.4 mmol/L (3.3-5.1); Sodium 139 mmol/L (135-145)
[2023-08-14] MEDS: Magnesium Sulfate/D5W 1 GM/100 ML PIGGYBACK IV (07:39)
[2023-08-14] MEDS: Albuterol/Iprat 2.5/0.5MG 3 ML AMPUL.NEB INHALE ×4 (07:50→20:49)
[2023-08-14] MEDS: Fluconazole 100 MG TABLET PO (07:57)
[2023-08-14] MEDS: acetaZOLAMIDE sodium 500 MG VIAL IVPUSH ×2 (07:57→20:36)
[2023-08-14] MEDS: Chlorhexidine Gluc Oral Rinse 15 ML MOUTHWASH BUCCAL ×3 (07:57→20:36)
[2023-08-14] MEDS: Famotidine/PF 20 MG/2 ML VIAL IVPUSH (07:57)
[2023-08-14] MEDS: dilTIAZem HCL 60 MG TABLET PO ×4 (07:57→20:36)
[2023-08-14 08:00] LABS: Atypical Lymph Absolute Manual 0.1 x10*3/uL; Atypical Lymphs Percent Manual 1 % (0-6); Band Neutrophils Percent 15 % (3-5); Basophils Abs Manual 0.1 X10*3/uL (0.0-0.2); Basophils Percent Manual 1 % (0-2); Eosinophils Absolute Manual 0.1 X10*3/uL (0.0-0.4); Eosinophils Percent Manual 1 % (0-4); Lymphocytes Absolute Manual 0.4 X10*3/uL (1.2-4.9); Lymphocytes Percent Manual 4 % (20-40); Metamyelocytes Absolute 0.6 X10*3/uL; Metamyelocytes Percent 6 %; Monocytes Absolute Manual 0.2 X10*3/uL (0.1-1.2); Monocytes Percent Manual 2 % (2-11); Myelocytes Absolute 0.6 X10*/uL; Myelocytes Percent 6 %; Neutrophils Absolute Manual 7.3 X10*3/uL (2.0-8.3); Neutrophils Percent Manual 62 % (45-73); Nucleated Red Blood Cells 2 /100WBC (0-0); Promyelocytes Absolute 0.2 X10*3/uL; Promyelocytes Percent 2 %
[2023-08-14 08:05] LABS: Platelet Estimate NORMAL (NORMAL); Platelet Morphology Comment NORMAL; Polychromasia 2+ (3-5) /OIF; RBC Morphology NOTED
[2023-08-14] MEDS: propofoL 1,000 MG/100 ML VIAL 5.41 MG IVCONT (08:06)
[2023-08-14] MEDS: Calcitonin,Salmon,Synth Nasal 3.7 ML BOTTLE 1 SPRAY NOSTRIL-B (08:07)
--- NOTE | 2023-08-14 09:40 | MHC.CLN ---
F/U PT WITH TRACH/PEG PLACED DISCUSSED AT ROUNDS WITH MD REVIEWED LABS NOTED WOUND STAGED DTI PER WOUND NURSE PT RECEIVING GLUCERNA AT MAX GOAL RATE 55ML/HR WITH 30ML PROSOURCE Q DAY AND 240ML FREE WATER FLUSHES Q 8 HRS TO PROVIDE 1380 TOTAL KCALS (23KCALS/KG), 70G TOTAL PROTEIN (1.2G/KG), 1846ML TOTAL WATER FROM FORMULA AND FLUSHES (31ML/KG) RECOMMEND INCREASING PROSOURCE TO BID TO PROVIDE AN ADDITIONAL 120KCALS, 30G PROTEIN (1.44G/KG PROTEIN WITH FORMULA) TF WILL PROMOTE WOUND HEALING MONITOR TOLERANCE, RESIDUALS AND LYTES
[2023-08-14] MEDS: Potassium Chloride/H20 10 MEQ/100 ML PIGGYBACK 100 MEQ IV ×4 (10:00→13:07)
[2023-08-14] MEDS: cefTRIAXone sodium 1 GM in 0.9 % Sodium Chloride 50 ML IV (11:06)
--- NOTE | 2023-08-14 11:14 | P.PNCC_ITS ---
Subjective Subjective Date of Service: 08/14/23 Interval History: 53-year-old lady with underlying morbid obesity, CHITO with hyperventilation syndrome with CO2 retention on supplemental oxygen at 3 L and nocturnal BiPAP, asthma/COPD overlap syndrome, diastolic heart failure, diabetes mellitus, opioid dependence on methadone with multiple admissions for respiratory failure admitted on 08/02/2023 with acute on chronic hypoxic and hypercapnic respiratory failure initially to telemetry michel, however on 08/05/2023 patient with worsening CO2 retention with poor improvement on BiPAP support requiring transfer to the intensive care unit and intubation. Failed extubation 08/11/2023. Now status post tracheostomy/gastrostomy on 08/12/2023. No events overnight. Poor arousal with sedation vacation. Critical Care Time (minutes): 60 Physical Exam 2 Vital Signs: Vital Signs: Last Vital Signs Temp 100.0 F 08/14/23 10:00 Pulse 113 H 08/14/23 10:00 Resp 18 08/14/23 10:00 BP 131/70 08/14/23 10:00 Pulse Ox 92 08/14/23 10:00 O2 Del Method Mechanical Ventil ation 08/14/23 10:00 O2 Flow Rate 90 08/05/23 15:52 FiO2 40 08/14/23 10:00 BMI result Body Mass Index 38.8 Const: General: no acute distress and other (Poor arousal with sedation vacation) Nutritional Appearance: obese Eyes: Sclerae: sclerae normal EOM: EOMs intact bilaterally Neck: Neck: Yes no lymphadenopathy, Yes trachea midline and Yes supple Resp: Auscultation: clear to auscultation bilaterally Cardio: Rate: regular rate Rhythm: regular rhythm Heart sounds: no gallops, no murmurs and no rubs GI: Palpation (GI): Soft to palpation and Other GI palpation findings present ( Nontender) Auscultation: normal bowel sounds Extrem: General: Yes no pedal edema, No clubbing and No cyanosis Objective Data Labs 08/14/23 05:17 08/14/23 05:17 Labs: Laboratory Results - last 24 hr 08/13/23 08/13/23 08/13/23 11:57 17:19 23:53 WBC RBC Hgb Hct MCV MCH MCHC RDW Plt Count MPV Immature Gran % (Auto) Neut % (Auto) Lymph % (Auto) Swisher % (Auto) Eos % (Auto) Baso % (Auto) Lymph # (Auto) Swisher # (Auto) Eos # (Auto) Baso # (Auto) Abs Immat Gran (auto) Absolute Neuts (auto) Absolute Nucleated RBC Nucleated RBC % (auto) Neutrophils % (Manual) Band Neutrophils % Lymphocytes % (Manual) Atypical Lymphs % (Man) Monocytes % (Manual) Eosinophils % (Manual) Basophils % (Manual) Metamyelocytes % Myelocytes % Promyelocytes % Abs Neuts (Manual) Lymphocytes # (Manual) Atyp Lymphs # (Manual) Monocytes # (Manual) Eosinophils # (Manual) Basophils # (Manual) Metamyelocytes # Myelocytes # Promyelocytes # Nucleated RBCs Platelet Estimate Plt Morphology Comment RBC Morphology Polychromasia VBG pH VBG pCO2 VBG pO2 VBG HCO3 VBG O2 Saturation VBG Base Excess Sodium Potassium Chloride Carbon Dioxide Anion Gap BUN Creatinine Estim Creat Clear Calc Estimated GFR POC Glucose 237 H 292 H 273 H Random Glucose Calcium Phosphorus Magnesium Albumin 08/14/23 08/14/23 05:17 05:56 WBC 9.5 RBC 3.45 L Hgb 10.2 L Hct 32.7 L MCV 94.8 MCH 29.6 MCHC 31.2 RDW 16.0 Plt Count 366 MPV 9.7 Immature Gran % (Auto) Cancelled Neut % (Auto) Cancelled Lymph % (Auto) Cancelled Swisher % (Auto) Cancelled Eos % (Auto) Cancelled Baso % (Auto) Cancelled Lymph # (Auto) Cancelled Swisher # (Auto) Cancelled Eos # (Auto) Cancelled Baso # (Auto) Cancelled Abs Immat Gran (auto) Cancelled Absolute Neuts (auto) Cancelled Absolute Nucleated RBC 0.130 H Nucleated RBC % (auto) 1.4 H Neutrophils % (Manual) 62 Band Neutrophils % 15 H Lymphocytes % (Manual) 4 L Atypical Lymphs % (Man) 1 Monocytes % (Manual) 2 Eosinophils % (Manual) 1 Basophils % (Manual) 1 Metamyelocytes % 6 Myelocytes % 6 Promyelocytes % 2 Abs Neuts (Manual) 7.3 Lymphocytes # (Manual) 0.4 L Atyp Lymphs # (Manual) 0.1 Monocytes # (Manual) 0.2 Eosinophils # (Manual) 0.1 Basophils # (Manual) 0.1 Metamyelocytes # 0.6 Myelocytes # 0.6 Promyelocytes # 0.2 Nucleated RBCs 2 H Platelet Estimate NORMAL Plt Morphology Comment NORMAL RBC Morphology NOTED Polychromasia 2+ (3-5) VBG pH 7.35 VBG pCO2 49 VBG pO2 59 VBG HCO3 27 H VBG O2 Saturation 86.0 VBG Base Excess 1.8 Sodium 139 Potassium 3.4 Chloride 100 Carbon Dioxide 27 Anion Gap 15 BUN 12 Creatinine 0.57 Estim Creat Clear Calc 114.1 Estimated GFR > 60 POC Glucose 285 H Random Glucose 339 H Calcium 9.9 Phosphorus 3.3 Magnesium 1.4 L* Albumin 3.0 L Microbiology Microbiology Results: Microbiology 08/03/23 16:38 Sputum - Expectorated Gram Stain - Final 08/03/23 16:38 Sputum - Expectorated Sputum Culture - Preliminary Filamentous fungus 08/02/23 14:20 Blood - Venous Blood Culture - Final No growth after 5 days. 08/02/23 13:36 Blood - Venous Blood Culture - Final No growth after 5 days. Progress Note: A&P Assessment and plan (1) Status post tracheostomy: Status: Acute (2) Status post insertion of percutaneous endoscopic gastrostomy (PEG) tube: Status: Acute (3) Encephalopathy acute: Status: Acute (4) Opioid dependence: Status: Acute (5) Type 2 diabetes mellitus: Status: Acute (6) Diastolic heart failure: Status: Acute (7) Acute on chronic respiratory failure with hypoxia and hypercapnia: Status: Acute (8) COPD (chronic obstructive pulmonary disease): Status: Acute Plan Assessment: 53-year-old lady with underlying CHITO with obesity hyperventilation, asthma/COPD, obesity, diastolic heart failure admitted with acute on chronic hypoxic and hypercapnic respiratory failure now requiring ventilatory support. Plan: Neuro: Poor arousal with sedation vacation, methadone stopped. MRI head is essentially normal. Will try modafinil, if no improvement will consider repeating brain imaging. Cardiac: Acute on chronic diastolic congestive heart failure resolved with diuresis. Pulmonary: Acute on chronic hypoxic and hypercapnic respiratory failure now requiring ventilatory support. Failed extubation 08/11/2023. Now status post tracheostomy/gastrostomy on 08/12/2023. Continue to titrate off ventilatory support as tolerated. Renal: No acute issues. Endo: No acute issues. GI: No acute issues. ID: No acute issues Heme/Onc: No acute issues. Psych: No acute issues. Underlying opioid dependence. Miscellaneous: No acute issues. Prophylaxis: Heparin, famotidine Diet: Tube feed Critical care time spent: 60 minutes Quality Stroke Does the patient have a stroke diagnosis?: No VTE Prior VTE?: No VTE Risk Level:: Medical - moderate - high VTE Device Contraindication: Treatment Not Indicated VTE Drug Contraindication: N/A - Med Ordered
[2023-08-14 12:05] LABS: Glucose, Whole Blood 336 mg/dL (60-115)
[2023-08-14] MEDS: modafiniL 100 MG TABLET 200 MG PO (12:49)
--- NOTE | 2023-08-14 13:16 | MHC.CM.PN ---
Pt POD 1 s/p trach/peg placement. On 40% support presently: referred to [facility] for LTACH level of care when stable. Call placed to pt's dtr / HCP to review d/c plan. CM to follow.
[2023-08-14 18:14] LABS: Glucose, Whole Blood 331 mg/dL (60-115)
[2023-08-14 20:32] LABS: Glucose, Whole Blood 345 mg/dL (60-115)
[2023-08-14] MEDS: Insulin Glargine,Hum.rec.anlog 100 UNIT/ML 10 ML VIAL 35 UNIT SUBCUT (20:37)
[2023-08-14 23:53] LABS: Glucose, Whole Blood 411 mg/dL (60-115)
[2023-08-15] VITALS (42 sets, daily range): BP systolic 118–177; BP diastolic 69–107; PULSE 103–144; RESP 18–38; TEMP 34.8–38.6; O2SAT 89–98
[2023-08-15] MEDS: Insulin Lispro 100 UNIT/ML 3 ML VIAL 15 UNIT SUBCUT ×2 (00:19→06:15)
[2023-08-15] MEDS: Heparin Sodium,Porcine 5,000 UNIT/ML VIAL 5000 UNIT SUBCUT ×3 (00:20→16:17)
[2023-08-15] MEDS: fentaNYL citrate/PF 100 MCG/2 ML VIAL IVPUSH (00:21)
[2023-08-15] MEDS: Acetaminophen 325 MG TABLET 975 MG PO (00:21)
[2023-08-15] MEDS: 0.9 % Sodium Chloride Flush 3 ML SYRINGE IVFLUSH ×3 (00:47→23:44)
[2023-08-15] MEDS: Metoprolol Tartrate 5 MG/5 ML VIAL IVPUSH ×4 (03:51→22:52)
[2023-08-15 05:13] LABS: Hematocrit 32.2 % (37.0-47.0); Hemoglobin 10.1 g/dl (12.0-16.0); Mean Corpuscular HGB Conc 31.4 g/dl (31.0-35.0); Mean Corpuscular Volume 92.5 fL (80.0-98.0); Mean Platelet Volume 9.7 fL (9.4-12.3); NRBC Pct Auto 1.8 /100WBC (0.0-0.2); Platelet Count 413 X10*3/uL (160-400); Red Blood Count 3.48 X10*6/uL (4.20-5.50); WBC ABN SCTR FOR CBC 1
[2023-08-15 05:14] LABS: White Blood Count 14.2 X10*3/uL (4.8-10.8)
[2023-08-15 05:14] LABS: VBG Base Excess -0.9 mmol/L; VBG HCO3 24 mmol/L (22-26); VBG pCO2 42 mmHg; VBG pH 7.36 (7.32-7.43); VBG pO2 64 mmHg
[2023-08-15 05:17] LABS: Venous Blood Gas Refer to POC result
[2023-08-15 05:23] LABS: Ammonia 63 umol/L (13-55)
[2023-08-15 05:40] LABS: Band Neutrophils Percent 22 % (3-5); Lymphocytes Absolute Manual 0.9 X10*3/uL (1.2-4.9); Lymphocytes Percent Manual 6 % (20-40); Metamyelocytes Absolute 0.1 X10*3/uL; Metamyelocytes Percent 1 %; Monocytes Absolute Manual 0.9 X10*3/uL (0.1-1.2); Monocytes Percent Manual 6 % (2-11); Neutrophils Absolute Manual 12.4 X10*3/uL (2.0-8.3); Neutrophils Percent Manual 65 % (45-73); Nucleated Red Blood Cells 6 /100WBC (0-0)
[2023-08-15 05:42] LABS: Large Platelet PRESENT; Platelet Estimate NORMAL (NORMAL); Platelet Morphology Comment NOTED; Polychromasia 1+ (0-2) /OIF; RBC Morphology NOTED; Toxic Granulation PRESENT
[2023-08-15 05:46] LABS: Alanine Aminotransferase 17 U/L (0-31); Alkaline Phosphatase 65 U/L (39-117); Anion Gap 15 (12-20); Aspartate Amino Transferase 14 U/L (5-31); Bilirubin Total 0.2 mg/dL (0.0-1.0); Blood Urea Nitrogen 15 mg/dL (9-16); Calcium 9.8 mg/dL (8.4-10.2); Carbon Dioxide 23 mmol/L (22-29); Chloride 102 mmol/L (96-108); Creatinine Clr Calc Pharmacy 110.2; Estimated Glomerular Filt Rate > 60; Glucose Random 429 mg/dL (60-115); Magnesium 1.5 mg/dL (1.6-2.6); Phosphorus 2.1 mg/dL (2.7-4.5); Potassium 3.6 mmol/L (3.3-5.1); Sodium 136 mmol/L (135-145); Total Protein 6.6 g/dL (6.5-8.0)
[2023-08-15] MEDS: Magnesium Sulfate/H2O 2 GM/50 ML PIGGYBACK IV (06:23)
[2023-08-15] MEDS: Potassium Phosphate/NS 15 MMOL/250 ML PLAST..BAG 62.5 MMOL IV (06:43)
[2023-08-15] MEDS: Albuterol/Iprat 2.5/0.5MG 3 ML AMPUL.NEB INHALE ×4 (07:54→20:49)
[2023-08-15] MEDS: acetaZOLAMIDE sodium 500 MG VIAL IVPUSH (08:25)
[2023-08-15] MEDS: Famotidine/PF 20 MG/2 ML VIAL IVPUSH (08:25)
[2023-08-15] MEDS: Fluconazole 100 MG TABLET PO (08:26)
[2023-08-15] MEDS: Chlorhexidine Gluc Oral Rinse 15 ML MOUTHWASH BUCCAL ×3 (08:26→21:05)
[2023-08-15] MEDS: Calcitonin,Salmon,Synth Nasal 3.7 ML BOTTLE 1 SPRAY NOSTRIL-B (08:26)
[2023-08-15] MEDS: Lactulose 20 GM/30 ML SOLUTION PO ×2 (08:26→21:05)
[2023-08-15] MEDS: Albumin Human 25 % 100 ML IV ×3 (08:26→20:53)
[2023-08-15] MEDS: dilTIAZem HCL 60 MG TABLET PO ×4 (08:26→21:05)
[2023-08-15] MEDS: modafiniL 100 MG TABLET 200 MG PO (10:25)
--- NOTE | 2023-08-15 10:33 | PM.CCPN ---
Subjective Subjective Date of Service: 08/15/23 Interval History: 53-year-old lady with underlying morbid obesity, CHITO with hyperventilation syndrome with CO2 retention on supplemental oxygen at 3 L and nocturnal BiPAP, asthma/COPD overlap syndrome, diastolic heart failure, diabetes mellitus, opioid dependence on methadone with multiple admissions for respiratory failure admitted on 08/02/2023 with acute on chronic hypoxic and hypercapnic respiratory failure initially to telemetry michel, however on 08/05/2023 patient with worsening CO2 retention with poor improvement on BiPAP support requiring transfer to the intensive care unit and intubation. Failed extubation 08/11/2023. Now status post tracheostomy/gastrostomy on 08/12/2023. No events overnight. Some response to modafinil, but still with poor arousal with sedation vacation. Critical Care Time (minutes): 60 Physical Exam Vital Signs: Vital Signs: Last Vital Signs Temp 100.6 F H 08/15/23 10:00 Pulse 136 H 08/15/23 10:00 Resp 35 H 08/15/23 10:00 BP 155/85 H 08/15/23 10:00 Pulse Ox 92 08/15/23 10:00 O2 Del Method Mechanical Ventil ation 08/15/23 10:00 O2 Flow Rate 90 08/05/23 15:52 FiO2 40 08/15/23 10:00 BMI result Body Mass Index 38.8 Const: General: no acute distress and other (Poor arousal with sedation vacation) Eyes: Sclerae: sclerae normal EOM: EOMs intact bilaterally Neck: Neck: Yes no lymphadenopathy, Yes trachea midline, Yes supple and Yes tracheostomy present (On vent) Resp: Auscultation: crackles (Bilateral) Cardio: Rate: tachycardic Rhythm: regular rhythm Heart sounds: no gallops, no murmurs and no rubs GI: Inspection: Yes G-tube present Palpation (GI): Soft to palpation and Other GI palpation findings present ( Nontender) Auscultation: normal bowel sounds Extrem: General: No clubbing, No cyanosis and Yes edema (Trace bilateral) Objective Data Labs 08/15/23 04:44 08/15/23 04:44 Labs: Laboratory Results - last 24 hr 08/14/23 08/14/23 08/14/23 12:03 18:11 20:28 WBC RBC Hgb Hct MCV MCH MCHC RDW Plt Count MPV Immature Gran % (Auto) Neut % (Auto) Lymph % (Auto) Divide % (Auto) Eos % (Auto) Baso % (Auto) Lymph # (Auto) Divide # (Auto) Eos # (Auto) Baso # (Auto) Abs Immat Gran (auto) Absolute Neuts (auto) Absolute Nucleated RBC Nucleated RBC % (auto) Neutrophils % (Manual) Band Neutrophils % Lymphocytes % (Manual) Monocytes % (Manual) Metamyelocytes % Abs Neuts (Manual) Lymphocytes # (Manual) Monocytes # (Manual) Metamyelocytes # Nucleated RBCs Toxic Granulation Platelet Estimate Large Platelets Plt Morphology Comment RBC Morphology Polychromasia VBG pH VBG pCO2 VBG pO2 VBG HCO3 VBG O2 Saturation VBG Base Excess Sodium Potassium Chloride Carbon Dioxide Anion Gap BUN Creatinine Estim Creat Clear Calc Estimated GFR POC Glucose 336 H 331 H 345 H Random Glucose Calcium Phosphorus Magnesium Total Bilirubin AST ALT Alkaline Phosphatase Ammonia Total Protein Albumin 08/14/23 08/15/23 08/15/23 23:48 04:44 05:06 WBC 14.2 H RBC 3.48 L Hgb 10.1 L Hct 32.2 L MCV 92.5 MCH 29.0 MCHC 31.4 RDW 16.0 Plt Count 413 H MPV 9.7 Immature Gran % (Auto) Cancelled Neut % (Auto) Cancelled Lymph % (Auto) Cancelled Divide % (Auto) Cancelled Eos % (Auto) Cancelled Baso % (Auto) Cancelled Lymph # (Auto) Cancelled Divide # (Auto) Cancelled Eos # (Auto) Cancelled Baso # (Auto) Cancelled Abs Immat Gran (auto) Cancelled Absolute Neuts (auto) Cancelled Absolute Nucleated RBC 0.250 H Nucleated RBC % (auto) 1.8 H Neutrophils % (Manual) 65 Band Neutrophils % 22 H Lymphocytes % (Manual) 6 L Monocytes % (Manual) 6 Metamyelocytes % 1 Abs Neuts (Manual) 12.4 H Lymphocytes # (Manual) 0.9 L Monocytes # (Manual) 0.9 Metamyelocytes # 0.1 Nucleated RBCs 6 H Toxic Granulation PRESENT Platelet Estimate NORMAL Large Platelets PRESENT Plt Morphology Comment NOTED RBC Morphology NOTED Polychromasia 1+ (0-2) VBG pH 7.36 VBG pCO2 42 VBG pO2 64 VBG HCO3 24 VBG O2 Saturation 91.0 VBG Base Excess -0.9 Sodium 136 Potassium 3.6 Chloride 102 Carbon Dioxide 23 Anion Gap 15 BUN 15 Creatinine 0.59 Estim Creat Clear Calc 110.2 Estimated GFR > 60 POC Glucose 411 H* Random Glucose 429 H* Calcium 9.8 Phosphorus 2.1 L Magnesium 1.5 L Total Bilirubin 0.2 AST 14 ALT 17 Alkaline Phosphatase 65 Ammonia 63 H Total Protein 6.6 Albumin 3.0 L Microbiology Microbiology Results: Microbiology 08/03/23 16:38 Sputum - Expectorated Gram Stain - Final 08/03/23 16:38 Sputum - Expectorated Sputum Culture - Preliminary Filamentous fungus 08/02/23 14:20 Blood - Venous Blood Culture - Final No growth after 5 days. 08/02/23 13:36 Blood - Venous Blood Culture - Final No growth after 5 days. Progress Note: A&P Assessment and plan (1) Status post tracheostomy: Status: Acute (2) Status post insertion of percutaneous endoscopic gastrostomy (PEG) tube: Status: Acute (3) Encephalopathy acute: Status: Acute (4) Opioid dependence: Status: Acute (5) Type 2 diabetes mellitus: Status: Acute (6) Diastolic heart failure: Status: Acute (7) Acute on chronic respiratory failure with hypoxia and hypercapnia: Status: Acute (8) COPD (chronic obstructive pulmonary disease): Status: Acute Plan Assessment: 53-year-old lady with underlying CHITO with obesity hyperventilation, asthma/COPD, obesity, diastolic heart failure admitted with acute on chronic hypoxic and hypercapnic respiratory failure now requiring ventilatory support. Plan: Neuro: Poor arousal with sedation vacation, methadone stopped. MRI head is essentially normal. Will try modafinil, if no improvement will consider repeating brain imaging. Cardiac: Acute on chronic diastolic congestive heart failure resolved with diuresis. Pulmonary: Acute on chronic hypoxic and hypercapnic respiratory failure now requiring ventilatory support. Failed extubation 08/11/2023. Now status post tracheostomy/gastrostomy on 08/12/2023. Continue to titrate off ventilatory support as tolerated. Renal: No acute issues. Endo: No acute issues. GI: No acute issues. ID: No acute issues Heme/Onc: No acute issues. Psych: No acute issues. Underlying opioid dependence. Miscellaneous: No acute issues. Prophylaxis: Heparin, famotidine Diet: Tube feed Critical care time spent: 60 minutes Quality Stroke Does the patient have a stroke diagnosis?: No VTE Prior VTE?: No VTE Risk Level:: Medical - moderate - high VTE Device Contraindication: Treatment Not Indicated VTE Drug Contraindication: N/A - Med Ordered
--- NOTE | 2023-08-15 10:47 | MHC.CLN ---
F/U PT WITH TRACH/PEG PLACED DISCUSSED AT ROUNDS WITH MD REVIEWED LABS NOTED WOUND STAGED DTI PER WOUND NURSE PT RECEIVING GLUCERNA AT MAX GOAL RATE 55ML/HR WITH 30ML PROSOURCE BID AND 240ML FREE WATER FLUSHES Q 8 HRS PROVIDES 1440TOTAL KCALS (24KCALS/KG), 85G TOTAL PROTEIN (1.4G/KG), 1846ML TOTAL WATER FROM FORMULA AND FLUSHES (31ML/KG) TF WILL PROMOTE WOUND HEALING MONITOR TOLERANCE, RESIDUALS AND LYTES RD CAN BE REACHED VIA TIGER CONNECT DURING OFF HOURS IF NEEDED
--- NOTE | 2023-08-15 10:56 | P.CDIM_ITS ---
PROVIDER RESPONSE TEXT: To clarify, the appropriate diagnosis supported by the clinical indicators: Pressure (decubitus) ulcer: Deep tissue injury QUERY TEXT: PHYSICIAN'S DOCUMENTATION REQUEST Date of Query: 08/15/2023 08:43 AM EDT Patient Name: Anju Tanner I Admit Date: 08/03/2023 Dear Rasta Geller MD, A review of the medical record indicates additional documentation may be needed. Please review below and update the documentation accordingly. Clinical Indicators: Per Wound Note 08/13/23 for evaluation of coccyx: the shape of the wound edges are atypical of pressure injury development however given the location o evan a bony prominence will be staged as deep tissue injury, Foam to aid in off loading pressure and Triad to protect from moisture Based on the above, could you please provide further information regarding the ulcer/wound: Diabetic ulcer Please specify the location and laterality of the ulcer/wound Pressure (decubitus) ulcer Please include the stage of the ulcer and specify the location and laterality of the ulcer/wound Traumatic wound Please specify the location and laterality of the ulcer/wound Other (explain) Clinically unable to determine (explain) Thank you, Felicity Bowman RN Use of terms such as suspected, likely, concern for, or probable (associated with a specific diagnosi s that is being evaluated, monitored, or treated as if it exists) are acceptable and can be coded in the inpatient se tting, when documented at the time of discharge. Please use your independent medical judgment in providing your response. THIS QUERY IS PART OF THE PERMANENT MEDICAL RECORD
[2023-08-15 11:35] LABS: Glucose, Whole Blood 315 mg/dL (60-115)
[2023-08-15] MEDS: Furosemide 40 MG/4 ML VIAL IVPUSH ×2 (11:39→23:44)
[2023-08-15] MEDS: Insulin Regular/NS 100 UNIT/100 ML PLAST..BAG IVCONT (11:49)
[2023-08-15 13:04] LABS: Glucose, Whole Blood 331 mg/dL (60-115)
--- NOTE | 2023-08-15 13:13 | MHC.CM.PN ---
Pt is 3 days post trach and peg placement - very slow arousal - pt will trial PSV once she is more alert. Clinical updates remitted to [facility] in anticipation of eventual transfer. CM to follow
[2023-08-15 14:10] LABS: Glucose, Whole Blood 343 mg/dL (60-115)
[2023-08-15 15:06] LABS: Glucose, Whole Blood 400 mg/dL (60-115)
[2023-08-15] MEDS: propofoL 1,000 MG/100 ML VIAL 16.22 MG IVCONT (15:36)
[2023-08-15 15:56] LABS: Glucose, Whole Blood 414 mg/dL (60-115)
[2023-08-15] MEDS: Insulin Regular, Human 100 UNIT/ML 10 ML VIAL 15 UNIT IVPUSH (16:15)
[2023-08-15 17:08] LABS: Glucose, Whole Blood 388 mg/dL (60-115)
[2023-08-15 18:01] LABS: Glucose, Whole Blood 359 mg/dL (60-115)
[2023-08-15 19:00] LABS: Glucose, Whole Blood 332 mg/dL (60-115)
[2023-08-15 20:04] LABS: Glucose, Whole Blood 300 mg/dL (60-115)
[2023-08-15 20:30] LABS: Anion Gap 19 (12-20); Blood Urea Nitrogen 15 mg/dL (9-16); Calcium 9.9 mg/dL (8.4-10.2); Carbon Dioxide 24 mmol/L (22-29); Chloride 101 mmol/L (96-108); Creatinine Clr Calc Pharmacy 110.2; Estimated Glomerular Filt Rate > 60; Glucose Random 309 mg/dL (60-115); Magnesium 1.7 mg/dL (1.6-2.6); Phosphorus 2.7 mg/dL (2.7-4.5); Potassium 3.1 mmol/L (3.3-5.1); Sodium 141 mmol/L (135-145)
[2023-08-15] MEDS: Magnesium Sulfate/D5W 1 GM/100 ML PIGGYBACK IV (21:00)
[2023-08-15] MEDS: propofoL 1,000 MG/100 ML VIAL 10.81 MG IVCONT (21:02)
[2023-08-15 21:05] LABS: Glucose, Whole Blood 243 mg/dL (60-115)
[2023-08-15] MEDS: Potassium Chloride Packet 20 MEQ PACKET 40 MEQ PO ×2 (21:15→22:51)
[2023-08-15 22:04] LABS: Glucose, Whole Blood 289 mg/dL (60-115)
[2023-08-15 23:05] LABS: Glucose, Whole Blood 245 mg/dL (60-115)
[2023-08-16] VITALS (41 sets, daily range): BP systolic 103–158; BP diastolic 56–89; PULSE 94–136; RESP 15–41; TEMP 33.2–38.8; O2SAT 90–100
[2023-08-16] MEDS: Insulin Regular/NS 100 UNIT/100 ML PLAST..BAG 8 UNIT IVCONT (00:02)
[2023-08-16 00:03] LABS: Glucose, Whole Blood 221 mg/dL (60-115)
[2023-08-16 01:00] LABS: Glucose, Whole Blood 191 mg/dL (60-115)
[2023-08-16 02:06] LABS: Glucose, Whole Blood 181 mg/dL (60-115)
[2023-08-16] MEDS: Albumin Human 25 % 100 ML IV (02:10)
[2023-08-16 03:03] LABS: Glucose, Whole Blood 190 mg/dL (60-115)
[2023-08-16 03:56] LABS: Glucose, Whole Blood 189 mg/dL (60-115)
[2023-08-16] MEDS: propofoL 1,000 MG/100 ML VIAL 10.81 MG IVCONT ×2 (04:31→15:44)
[2023-08-16] MEDS: Metoprolol Tartrate 5 MG/5 ML VIAL IVPUSH ×4 (04:33→22:14)
[2023-08-16 05:42] LABS: VBG Base Excess 5.9 mmol/L; VBG HCO3 29 mmol/L (22-26); VBG pCO2 39 mmHg; VBG pH 7.48 (7.32-7.43); VBG pO2 54 mmHg
[2023-08-16 05:51] LABS: Hematocrit 30.8 % (37.0-47.0); Hemoglobin 9.6 g/dl (12.0-16.0); Mean Corpuscular HGB Conc 31.2 g/dl (31.0-35.0); Mean Corpuscular Hemoglobin 29.2 pg (27.0-33.0); Mean Corpuscular Volume 93.6 fL (80.0-98.0); Mean Platelet Volume 9.6 fL (9.4-12.3); Platelet Count 386 X10*3/uL (160-400); Red Blood Count 3.29 X10*6/uL (4.20-5.50); Red Cell Distribution Width 15.9 % (11.0-16.0)
[2023-08-16 05:56] LABS: Ammonia 72 umol/L (13-55)
[2023-08-16] MEDS: Albuterol/Iprat 2.5/0.5MG 3 ML AMPUL.NEB INHALE ×4 (06:02→20:09)
[2023-08-16 06:03] LABS: Glucose, Whole Blood 168 mg/dL (60-115)
[2023-08-16 06:05] LABS: Anion Gap 17 (12-20); Blood Urea Nitrogen 14 mg/dL (9-16); Calcium 10.3 mg/dL (8.4-10.2); Carbon Dioxide 26 mmol/L (22-29); Chloride 103 mmol/L (96-108); Creatinine Clr Calc Pharmacy 108.4; Estimated Glomerular Filt Rate > 60; Glucose Random 181 mg/dL (60-115); Magnesium 1.8 mg/dL (1.6-2.6); Phosphorus 2.1 mg/dL (2.7-4.5); Potassium 3.6 mmol/L (3.3-5.1); Sodium 142 mmol/L (135-145)
[2023-08-16 06:07] LABS: WBC ABN SCTR FOR CBC 1
[2023-08-16 06:24] LABS: Band Neutrophils Percent 18 % (3-5); Basophils Abs Manual 0.4 X10*3/uL (0.0-0.2); Lymphocytes Absolute Manual 0.8 X10*3/uL (1.2-4.9); Lymphocytes Percent Manual 6 % (20-40); Metamyelocytes Absolute 0.3 X10*3/uL; Metamyelocytes Percent 2 %; Monocytes Percent Manual 7 % (2-11); Myelocytes Absolute 0.1 X10*/uL; Myelocytes Percent 1 %; Neutrophils Absolute Manual 11.8 X10*3/uL (2.0-8.3); Neutrophils Percent Manual 66 % (45-73); Promyelocytes Absolute 0.4 X10*3/uL; RBC Morphology NOTED
[2023-08-16 06:25] LABS: Platelet Estimate NORMAL (NORMAL); Platelet Morphology Comment NORMAL; Toxic Granulation PRESENT
[2023-08-16 06:27] LABS: Polychromasia 1+ (0-2) /OIF
[2023-08-16] MEDS: Potassium Phosphate/NS 15 MMOL/250 ML PLAST..BAG 62.5 MMOL IV (06:47)
[2023-08-16 07:14] LABS: Glucose, Whole Blood 159 mg/dL (60-115)
[2023-08-16 08:02] LABS: Glucose, Whole Blood 166 mg/dL (60-115)
[2023-08-16] MEDS: Lactulose 20 GM/30 ML SOLUTION PO ×3 (08:10→20:58)
[2023-08-16] MEDS: Chlorhexidine Gluc Oral Rinse 15 ML MOUTHWASH BUCCAL ×3 (08:10→20:58)
[2023-08-16] MEDS: dilTIAZem HCL 60 MG TABLET PO ×4 (08:11→20:58)
[2023-08-16] MEDS: 0.9 % Sodium Chloride Flush 3 ML SYRINGE IVFLUSH (08:11)
[2023-08-16] MEDS: Fluconazole 100 MG TABLET PO (08:11)
[2023-08-16] MEDS: Famotidine/PF 20 MG/2 ML VIAL IVPUSH (08:11)
[2023-08-16] MEDS: Heparin Sodium,Porcine 5,000 UNIT/ML VIAL 5000 UNIT SUBCUT ×3 (08:11→16:39)
[2023-08-16] MEDS: Calcitonin,Salmon,Synth Nasal 3.7 ML BOTTLE 1 SPRAY NOSTRIL-B (08:17)
[2023-08-16 09:04] LABS: Glucose, Whole Blood 179 mg/dL (60-115)
[2023-08-16] MEDS: Furosemide 40 MG/4 ML VIAL IVPUSH ×2 (09:47→17:28)
[2023-08-16 10:06] LABS: Glucose, Whole Blood 208 mg/dL (60-115)
--- NOTE | 2023-08-16 10:25 | P.PNCC_ITS ---
Subjective Subjective Date of Service: 08/16/23 Interval History: 53-year-old lady with underlying morbid obesity, CHITO with hyperventilation syndrome with CO2 retention on supplemental oxygen at 3 L and nocturnal BiPAP, asthma/COPD overlap syndrome, diastolic heart failure, diabetes mellitus, opioid dependence on methadone with multiple admissions for respiratory failure admitted on 08/02/2023 with acute on chronic hypoxic and hypercapnic respiratory failure initially to telemetry michel, however on 08/05/2023 patient with worsening CO2 retention with poor improvement on BiPAP support requiring transfer to the intensive care unit and intubation. Failed extubation 08/11/2023. Now status post tracheostomy/gastrostomy on 08/12/2023. No events overnight. This a.m. with some underlying encephalopathy, following some commands with sedation vacation. Critical Care Time (minutes): 60 Physical Exam 2 Vital Signs: Vital Signs: Last Vital Signs Temp 100.3 F 08/16/23 10:00 Pulse 109 H 08/16/23 10:00 Resp 25 H 08/16/23 10:00 BP 146/73 H 08/16/23 10:00 Pulse Ox 94 08/16/23 10:00 O2 Del Method Mechanical Ventil ation 08/16/23 10:00 O2 Flow Rate 90 08/05/23 15:52 FiO2 35 08/16/23 10:00 BMI result Body Mass Index 38.8 Const: General: no acute distress Eyes: Sclerae: sclerae normal EOM: EOMs intact bilaterally Neck: Neck: Yes no lymphadenopathy, Yes trachea midline, Yes supple and Yes tracheostomy present (On vent) Resp: Auscultation: clear to auscultation bilaterally Cardio: Rate: tachycardic Rhythm: regular rhythm Heart sounds: no gallops, no murmurs and no rubs GI: Inspection: Yes G-tube present Palpation (GI): Soft to palpation and Other GI palpation findings present ( Nontender) Auscultation: normal bowel sounds Extrem: General: Yes no pedal edema, No clubbing and No cyanosis Objective Data Labs 08/16/23 05:25 08/16/23 05:25 Labs: Laboratory Results - last 24 hr 08/15/23 08/15/23 08/15/23 11:31 12:59 14:07 WBC RBC Hgb Hct MCV MCH MCHC RDW Plt Count MPV Immature Gran % (Auto) Neut % (Auto) Lymph % (Auto) [place] % (Auto) Eos % (Auto) Baso % (Auto) Lymph # (Auto) [place] # (Auto) Eos # (Auto) Baso # (Auto) Abs Immat Gran (auto) Absolute Neuts (auto) Absolute Nucleated RBC Nucleated RBC % (auto) Neutrophils % (Manual) Band Neutrophils % Lymphocytes % (Manual) Monocytes % (Manual) Metamyelocytes % Myelocytes % Abs Neuts (Manual) Lymphocytes # (Manual) Monocytes # (Manual) Basophils # (Manual) Metamyelocytes # Myelocytes # Promyelocytes # Toxic Granulation Platelet Estimate Plt Morphology Comment RBC Morphology Polychromasia Hold Purple Top VBG pH VBG pCO2 VBG pO2 VBG HCO3 VBG O2 Saturation VBG Base Excess Sodium Potassium Chloride Carbon Dioxide Anion Gap BUN Creatinine Estim Creat Clear Calc Estimated GFR POC Glucose 315 H 331 H 343 H Random Glucose Calcium Phosphorus Magnesium Ammonia Albumin 08/15/23 08/15/23 08/15/23 15:02 15:53 17:04 WBC RBC Hgb Hct MCV MCH MCHC RDW Plt Count MPV Immature Gran % (Auto) Neut % (Auto) Lymph % (Auto) [place] % (Auto) Eos % (Auto) Baso % (Auto) Lymph # (Auto) [place] # (Auto) Eos # (Auto) Baso # (Auto) Abs Immat Gran (auto) Absolute Neuts (auto) Absolute Nucleated RBC Nucleated RBC % (auto) Neutrophils % (Manual) Band Neutrophils % Lymphocytes % (Manual) Monocytes % (Manual) Metamyelocytes % Myelocytes % Abs Neuts (Manual) Lymphocytes # (Manual) Monocytes # (Manual) Basophils # (Manual) Metamyelocytes # Myelocytes # Promyelocytes # Toxic Granulation Platelet Estimate Plt Morphology Comment RBC Morphology Polychromasia Hold Purple Top VBG pH VBG pCO2 VBG pO2 VBG HCO3 VBG O2 Saturation VBG Base Excess Sodium Potassium Chloride Carbon Dioxide Anion Gap BUN Creatinine Estim Creat Clear Calc Estimated GFR POC Glucose 400 H* 414 H* 388 H* Random Glucose Calcium Phosphorus Magnesium Ammonia Albumin 08/15/23 08/15/23 08/15/23 17:57 18:56 19:45 WBC RBC Hgb Hct MCV MCH MCHC RDW Plt Count MPV Immature Gran % (Auto) Neut % (Auto) Lymph % (Auto) [place] % (Auto) Eos % (Auto) Baso % (Auto) Lymph # (Auto) [place] # (Auto) Eos # (Auto) Baso # (Auto) Abs Immat Gran (auto) Absolute Neuts (auto) Absolute Nucleated RBC Nucleated RBC % (auto) Neutrophils % (Manual) Band Neutrophils % Lymphocytes % (Manual) Monocytes % (Manual) Metamyelocytes % Myelocytes % Abs Neuts (Manual) Lymphocytes # (Manual) Monocytes # (Manual) Basophils # (Manual) Metamyelocytes # Myelocytes # Promyelocytes # Toxic Granulation Platelet Estimate Plt Morphology Comment RBC Morphology Polychromasia Hold Purple Top SEE NOTE VBG pH VBG pCO2 VBG pO2 VBG HCO3 VBG O2 Saturation VBG Base Excess Sodium 141 Potassium 3.1 L Chloride 101 Carbon Dioxide 24 Anion Gap 19 BUN 15 Creatinine 0.59 Estim Creat Clear Calc 110.2 Estimated GFR > 60 POC Glucose 359 H* 332 H Random Glucose 309 H Calcium 9.9 Phosphorus 2.7 Magnesium 1.7 Ammonia Albumin 08/15/23 08/15/23 08/15/23 20:01 21:01 22:00 WBC RBC Hgb Hct MCV MCH MCHC RDW Plt Count MPV Immature Gran % (Auto) Neut % (Auto) Lymph % (Auto) [place] % (Auto) Eos % (Auto) Baso % (Auto) Lymph # (Auto) [place] # (Auto) Eos # (Auto) Baso # (Auto) Abs Immat Gran (auto) Absolute Neuts (auto) Absolute Nucleated RBC Nucleated RBC % (auto) Neutrophils % (Manual) Band Neutrophils % Lymphocytes % (Manual) Monocytes % (Manual) Metamyelocytes % Myelocytes % Abs Neuts (Manual) Lymphocytes # (Manual) Monocytes # (Manual) Basophils # (Manual) Metamyelocytes # Myelocytes # Promyelocytes # Toxic Granulation Platelet Estimate Plt Morphology Comment RBC Morphology Polychromasia Hold Purple Top VBG pH VBG pCO2 VBG pO2 VBG HCO3 VBG O2 Saturation VBG Base Excess Sodium Potassium Chloride Carbon Dioxide Anion Gap BUN Creatinine Estim Creat Clear Calc Estimated GFR POC Glucose 300 H 243 H 289 H Random Glucose Calcium Phosphorus Magnesium Ammonia Albumin 08/15/23 08/15/23 08/16/23 23:02 23:59 00:56 WBC RBC Hgb Hct MCV MCH MCHC RDW Plt Count MPV Immature Gran % (Auto) Neut % (Auto) Lymph % (Auto) [place] % (Auto) Eos % (Auto) Baso % (Auto) Lymph # (Auto) [place] # (Auto) Eos # (Auto) Baso # (Auto) Abs Immat Gran (auto) Absolute Neuts (auto) Absolute Nucleated RBC Nucleated RBC % (auto) Neutrophils % (Manual) Band Neutrophils % Lymphocytes % (Manual) Monocytes % (Manual) Metamyelocytes % Myelocytes % Abs Neuts (Manual) Lymphocytes # (Manual) Monocytes # (Manual) Basophils # (Manual) Metamyelocytes # Myelocytes # Promyelocytes # Toxic Granulation Platelet Estimate Plt Morphology Comment RBC Morphology Polychromasia Hold Purple Top VBG pH VBG pCO2 VBG pO2 VBG HCO3 VBG O2 Saturation VBG Base Excess Sodium Potassium Chloride Carbon Dioxide Anion Gap BUN Creatinine Estim Creat Clear Calc Estimated GFR POC Glucose 245 H 221 H 191 H Random Glucose Calcium Phosphorus Magnesium Ammonia Albumin 08/16/23 08/16/23 08/16/23 02:02 02:59 03:50 WBC RBC Hgb Hct MCV MCH MCHC RDW Plt Count MPV Immature Gran % (Auto) Neut % (Auto) Lymph % (Auto) [place] % (Auto) Eos % (Auto) Baso % (Auto) Lymph # (Auto) [place] # (Auto) Eos # (Auto) Baso # (Auto) Abs Immat Gran (auto) Absolute Neuts (auto) Absolute Nucleated RBC Nucleated RBC % (auto) Neutrophils % (Manual) Band Neutrophils % Lymphocytes % (Manual) Monocytes % (Manual) Metamyelocytes % Myelocytes % Abs Neuts (Manual) Lymphocytes # (Manual) Monocytes # (Manual) Basophils # (Manual) Metamyelocytes # Myelocytes # Promyelocytes # Toxic Granulation Platelet Estimate Plt Morphology Comment RBC Morphology Polychromasia Hold Purple Top VBG pH VBG pCO2 VBG pO2 VBG HCO3 VBG O2 Saturation VBG Base Excess Sodium Potassium Chloride Carbon Dioxide Anion Gap BUN Creatinine Estim Creat Clear Calc Estimated GFR POC Glucose 181 H 190 H 189 H Random Glucose Calcium Phosphorus Magnesium Ammonia Albumin 08/16/23 08/16/23 08/16/23 05:25 05:34 06:00 WBC 14.0 H RBC 3.29 L Hgb 9.6 L Hct 30.8 L MCV 93.6 MCH 29.2 MCHC 31.2 RDW 15.9 Plt Count 386 MPV 9.6 Immature Gran % (Auto) Cancelled Neut % (Auto) Cancelled Lymph % (Auto) Cancelled [place] % (Auto) Cancelled Eos % (Auto) Cancelled Baso % (Auto) Cancelled Lymph # (Auto) Cancelled [place] # (Auto) Cancelled Eos # (Auto) Cancelled Baso # (Auto) Cancelled Abs Immat Gran (auto) Cancelled Absolute Neuts (auto) Cancelled Absolute Nucleated RBC 0.420 H Nucleated RBC % (auto) 3.0 H Neutrophils % (Manual) 66 Band Neutrophils % 18 H Lymphocytes % (Manual) 6 L Monocytes % (Manual) 7 Metamyelocytes % 2 Myelocytes % 1 Abs Neuts (Manual) 11.8 H Lymphocytes # (Manual) 0.8 L Monocytes # (Manual) 1.0 Basophils # (Manual) 0.4 H Metamyelocytes # 0.3 Myelocytes # 0.1 Promyelocytes # 0.4 Toxic Granulation PRESENT Platelet Estimate NORMAL Plt Morphology Comment NORMAL RBC Morphology NOTED Polychromasia 1+ (0-2) Hold Purple Top VBG pH 7.48 H VBG pCO2 39 VBG pO2 54 VBG HCO3 29 H VBG O2 Saturation 86.0 VBG Base Excess 5.9 Sodium 142 Potassium 3.6 Chloride 103 Carbon Dioxide 26 Anion Gap 17 BUN 14 Creatinine 0.60 Estim Creat Clear Calc 108.4 Estimated GFR > 60 POC Glucose 168 H Random Glucose 181 H Calcium 10.3 H Phosphorus 2.1 L Magnesium 1.8 Ammonia 72 H Albumin 4.0 08/16/23 08/16/23 08/16/23 07:10 07:58 09:00 WBC RBC Hgb Hct MCV MCH MCHC RDW Plt Count MPV Immature Gran % (Auto) Neut % (Auto) Lymph % (Auto) [place] % (Auto) Eos % (Auto) Baso % (Auto) Lymph # (Auto) [place] # (Auto) Eos # (Auto) Baso # (Auto) Abs Immat Gran (auto) Absolute Neuts (auto) Absolute Nucleated RBC Nucleated RBC % (auto) Neutrophils % (Manual) Band Neutrophils % Lymphocytes % (Manual) Monocytes % (Manual) Metamyelocytes % Myelocytes % Abs Neuts (Manual) Lymphocytes # (Manual) Monocytes # (Manual) Basophils # (Manual) Metamyelocytes # Myelocytes # Promyelocytes # Toxic Granulation Platelet Estimate Plt Morphology Comment RBC Morphology Polychromasia Hold Purple Top VBG pH VBG pCO2 VBG pO2 VBG HCO3 VBG O2 Saturation VBG Base Excess Sodium Potassium Chloride Carbon Dioxide Anion Gap BUN Creatinine Estim Creat Clear Calc Estimated GFR POC Glucose 159 H 166 H 179 H Random Glucose Calcium Phosphorus Magnesium Ammonia Albumin 08/16/23 10:01 WBC RBC Hgb Hct MCV MCH MCHC RDW Plt Count MPV Immature Gran % (Auto) Neut % (Auto) Lymph % (Auto) [place] % (Auto) Eos % (Auto) Baso % (Auto) Lymph # (Auto) [place] # (Auto) Eos # (Auto) Baso # (Auto) Abs Immat Gran (auto) Absolute Neuts (auto) Absolute Nucleated RBC Nucleated RBC % (auto) Neutrophils % (Manual) Band Neutrophils % Lymphocytes % (Manual) Monocytes % (Manual) Metamyelocytes % Myelocytes % Abs Neuts (Manual) Lymphocytes # (Manual) Monocytes # (Manual) Basophils # (Manual) Metamyelocytes # Myelocytes # Promyelocytes # Toxic Granulation Platelet Estimate Plt Morphology Comment RBC Morphology Polychromasia Hold Purple Top VBG pH VBG pCO2 VBG pO2 VBG HCO3 VBG O2 Saturation VBG Base Excess Sodium Potassium Chloride Carbon Dioxide Anion Gap BUN Creatinine Estim Creat Clear Calc Estimated GFR POC Glucose 208 H Random Glucose Calcium Phosphorus Magnesium Ammonia Albumin Microbiology Microbiology Results: Microbiology 08/03/23 16:38 Sputum - Expectorated Gram Stain - Final 08/03/23 16:38 Sputum - Expectorated Sputum Culture - Preliminary Filamentous fungus 08/02/23 14:20 Blood - Venous Blood Culture - Final No growth after 5 days. 08/02/23 13:36 Blood - Venous Blood Culture - Final No growth after 5 days. Progress Note: A&P Assessment and plan (1) Status post tracheostomy: Status: Acute (2) Status post insertion of percutaneous endoscopic gastrostomy (PEG) tube: Status: Acute (3) Opioid dependence: Status: Acute (4) Type 2 diabetes mellitus: Status: Acute (5) Diastolic heart failure: Status: Acute (6) Acute on chronic respiratory failure with hypoxia and hypercapnia: Status: Acute (7) COPD (chronic obstructive pulmonary disease): Status: Acute Plan Assessment: 53-year-old lady with underlying CHITO with obesity hyperventilation, asthma/COPD, obesity, diastolic heart failure admitted with acute on chronic hypoxic and hypercapnic respiratory failure now requiring ventilatory support. Plan: Neuro: Poor arousal with sedation vacation, methadone stopped. MRI head is essentially normal. Now with slow improvement encephalopathy following some commands with sedation vacation. Cardiac: Acute on chronic diastolic congestive heart failure resolved with diuresis. Pulmonary: Acute on chronic hypoxic and hypercapnic respiratory failure now requiring ventilatory support. Failed extubation 08/11/2023. Now status post tracheostomy/gastrostomy on 08/12/2023. Continue to titrate off ventilatory support as tolerated. Renal: No acute issues. Endo: No acute issues. GI: No acute issues. ID: No acute issues Heme/Onc: No acute issues. Psych: No acute issues. Underlying opioid dependence. Miscellaneous: No acute issues. Prophylaxis: Heparin, famotidine Diet: Tube feed Critical care time spent: 60 minutes Quality Stroke Does the patient have a stroke diagnosis?: No VTE Prior VTE?: No VTE Risk Level:: Medical - moderate - high VTE Device Contraindication: Treatment Not Indicated VTE Drug Contraindication: N/A - Med Ordered
[2023-08-16 11:06] LABS: Glucose, Whole Blood 290 mg/dL (60-115)
[2023-08-16] MEDS: Insulin Regular/NS 100 UNIT/100 ML PLAST..BAG 10 UNIT IVCONT (11:17)
[2023-08-16 12:06] LABS: Glucose, Whole Blood 293 mg/dL (60-115)
[2023-08-16 13:06] LABS: Glucose, Whole Blood 253 mg/dL (60-115)
[2023-08-16 13:30] LABS: Venous Blood Gas Refer to POC result
--- NOTE | 2023-08-16 13:59 | HO.SKINPHOTO ---
#1. Location:Left Buttock Category: Pressure Injury Stage: Stage 2 Length: 4cm Width: 2cm #2. Location: two on the Right Buttock Category: both are Pressure Injury Stage: Stage 2 Length: 1.7cm Width: 1cm This underwriter solicitation director noted change in the skin assessment; noted here. Applied triad cream and foam dressing. Repositioned every 2 hrs and as needed with wedges and turn assist.
[2023-08-16 14:05] LABS: Glucose, Whole Blood 229 mg/dL (60-115)
[2023-08-16 15:09] LABS: Glucose, Whole Blood 217 mg/dL (60-115)
[2023-08-16 16:14] LABS: Glucose, Whole Blood 227 mg/dL (60-115)
[2023-08-16 17:02] LABS: Glucose, Whole Blood 183 mg/dL (60-115)
[2023-08-16 18:15] LABS: Glucose, Whole Blood 149 mg/dL (60-115)
[2023-08-16 19:50] LABS: Anion Gap 16 (12-20); Blood Urea Nitrogen 11 mg/dL (9-16); Calcium 9.9 mg/dL (8.4-10.2); Carbon Dioxide 29 mmol/L (22-29); Chloride 101 mmol/L (96-108); Creatinine Clr Calc Pharmacy 120.4; Estimated Glomerular Filt Rate > 60; Glucose Random 174 mg/dL (60-115); Magnesium 1.6 mg/dL (1.6-2.6); Phosphorus 3.5 mg/dL (2.7-4.5); Potassium 3.7 mmol/L (3.3-5.1); Sodium 142 mmol/L (135-145)
[2023-08-16 20:04] LABS: Glucose, Whole Blood 166 mg/dL (60-115)
[2023-08-16] MEDS: Potassium Chloride Packet 20 MEQ PACKET 40 MEQ PO (20:59)
[2023-08-16] MEDS: Magnesium Sulfate/D5W 1 GM/100 ML PIGGYBACK IV (21:02)
[2023-08-16 22:00] LABS: Glucose, Whole Blood 231 mg/dL (60-115)
[2023-08-16] MEDS: propofoL 1,000 MG/100 ML VIAL 16.22 MG IVCONT (22:13)
[2023-08-16] MEDS: Insulin Regular/NS 100 UNIT/100 ML PLAST..BAG 7.5 UNIT IVCONT (22:22)
[2023-08-16 23:01] LABS: Glucose, Whole Blood 214 mg/dL (60-115)
[2023-08-17] VITALS (40 sets, daily range): BP systolic 109–165; BP diastolic 62–100; PULSE 94–138; RESP 17–42; TEMP 34.8–38.7; O2SAT 89–98
[2023-08-17] MEDS: 0.9 % Sodium Chloride Flush 3 ML SYRINGE IVFLUSH ×3 (00:08→16:35)
[2023-08-17] MEDS: Heparin Sodium,Porcine 5,000 UNIT/ML VIAL 5000 UNIT SUBCUT ×3 (00:13→16:36)
[2023-08-17 00:26] LABS: Glucose, Whole Blood 192 mg/dL (60-115)
[2023-08-17 01:05] LABS: Glucose, Whole Blood 173 mg/dL (60-115)
[2023-08-17 03:07] LABS: Glucose, Whole Blood 197 mg/dL (60-115)
[2023-08-17 04:27] LABS: VBG Base Excess 9.7 mmol/L; VBG HCO3 32 mmol/L (22-26); VBG pCO2 38 mmHg; VBG pH 7.54 (7.32-7.43); VBG pO2 50 mmHg
[2023-08-17] MEDS: Metoprolol Tartrate 5 MG/5 ML VIAL IVPUSH ×4 (04:37→22:04)
[2023-08-17] MEDS: propofoL 1,000 MG/100 ML VIAL 16.22 MG IVCONT (04:44)
[2023-08-17] MEDS: Albuterol/Iprat 2.5/0.5MG 3 ML AMPUL.NEB INHALE ×4 (04:54→15:36)
[2023-08-17 05:09] LABS: Glucose, Whole Blood 180 mg/dL (60-115)
[2023-08-17 05:30] LABS: Hematocrit 35.3 % (37.0-47.0); Mean Corpuscular HGB Conc 31.2 g/dl (31.0-35.0); Mean Corpuscular Hemoglobin 29.3 pg (27.0-33.0); Mean Corpuscular Volume 93.9 fL (80.0-98.0); Mean Platelet Volume 9.7 fL (9.4-12.3); NRBC Pct Auto 2.1 /100WBC (0.0-0.2); Platelet Count 402 X10*3/uL (160-400); Red Blood Count 3.76 X10*6/uL (4.20-5.50); Red Cell Distribution Width 16.6 % (11.0-16.0); WBC ABN SCTR FOR CBC 1
[2023-08-17 05:31] LABS: White Blood Count 16.4 X10*3/uL (4.8-10.8)
[2023-08-17 05:49] LABS: Albumin Level 3.8 g/dL (3.5-5.0); Anion Gap 15 (12-20); Blood Urea Nitrogen 11 mg/dL (9-16); Calcium 10.7 mg/dL (8.4-10.2); Carbon Dioxide 32 mmol/L (22-29); Chloride 98 mmol/L (96-108); Creatinine Clr Calc Pharmacy 103.2; Estimated Glomerular Filt Rate > 60; Glucose Random 187 mg/dL (60-115); Magnesium 1.8 mg/dL (1.6-2.6); Phosphorus 3.1 mg/dL (2.7-4.5); Potassium 3.6 mmol/L (3.3-5.1); Sodium 141 mmol/L (135-145)
[2023-08-17 05:55] LABS: Band Neutrophils Percent 15 % (3-5); Lymphocytes Absolute Manual 0.8 X10*3/uL (1.2-4.9); Lymphocytes Percent Manual 5 % (20-40); Metamyelocytes Absolute 0.3 X10*3/uL; Metamyelocytes Percent 2 %; Monocytes Absolute Manual 0.5 X10*3/uL (0.1-1.2); Monocytes Percent Manual 3 % (2-11); Neutrophils Absolute Manual 14.8 X10*3/uL (2.0-8.3); Neutrophils Percent Manual 75 % (45-73); Nucleated Red Blood Cells 2 /100WBC (0-0)
[2023-08-17 05:56] LABS: Large Platelet PRESENT; Platelet Estimate NORMAL (NORMAL); Platelet Morphology Comment NOTED; RBC Morphology NOTED
[2023-08-17 05:57] LABS: Polychromasia 2+ (3-5) /OIF; Toxic Granulation PRESENT; Toxic Vacuolation PRESENT
[2023-08-17 06:11] LABS: Venous Blood Gas Refer to POC result
[2023-08-17 06:57] LABS: Glucose, Whole Blood 164 mg/dL (60-115)
[2023-08-17] MEDS: Lactulose 20 GM/30 ML SOLUTION PO ×3 (08:00→20:31)
[2023-08-17] MEDS: dilTIAZem HCL 60 MG TABLET PO ×4 (08:01→20:31)
[2023-08-17] MEDS: Furosemide 40 MG/4 ML VIAL IVPUSH ×2 (08:01→18:18)
[2023-08-17] MEDS: Potassium Chloride Packet 20 MEQ PACKET 40 MEQ PO (08:01)
[2023-08-17] MEDS: Fluconazole 100 MG TABLET PO (08:01)
[2023-08-17] MEDS: Famotidine/PF 20 MG/2 ML VIAL IVPUSH (08:01)
[2023-08-17] MEDS: Calcitonin,Salmon,Synth Nasal 3.7 ML BOTTLE 1 SPRAY NOSTRIL-B (08:02)
[2023-08-17] MEDS: Chlorhexidine Gluc Oral Rinse 15 ML MOUTHWASH BUCCAL ×3 (08:12→20:31)
[2023-08-17 09:08] LABS: Glucose, Whole Blood 183 mg/dL (60-115)
--- NOTE | 2023-08-17 10:41 | PM.CCPN ---
Subjective Subjective Date of Service: 08/17/23 Interval History: 53-year-old lady with underlying morbid obesity, CHITO with hyperventilation syndrome with CO2 retention on supplemental oxygen at 3 L and nocturnal BiPAP, asthma/COPD overlap syndrome, diastolic heart failure, diabetes mellitus, opioid dependence on methadone with multiple admissions for respiratory failure admitted on 08/02/2023 with acute on chronic hypoxic and hypercapnic respiratory failure initially to telemetry michel, however on 08/05/2023 patient with worsening CO2 retention with poor improvement on BiPAP support requiring transfer to the intensive care unit and intubation. Failed extubation 08/11/2023. Now status post tracheostomy/gastrostomy on 08/12/2023. No events overnight. Encephalopathy is improving, now is following commands with sedation vacation and is starting tolerate pressor support trials. Critical Care Time (minutes): 60 Physical Exam Vital Signs: Vital Signs: Last Vital Signs Temp 100.9 F H 08/17/23 10:00 Pulse 119 H 08/17/23 10:00 Resp 36 H 08/17/23 10:00 BP 135/69 08/17/23 10:00 Pulse Ox 89 L 08/17/23 10:00 O2 Del Method Mechanical Ventil ation 08/17/23 10:00 O2 Flow Rate 90 08/05/23 15:52 FiO2 40 08/17/23 10:00 BMI result Body Mass Index 38.8 Const: General: no acute distress, alert and awake Nutritional Appearance: obese Eyes: Sclerae: sclerae normal EOM: EOMs intact bilaterally Neck: Neck: Yes no lymphadenopathy, Yes trachea midline, Yes supple and Yes tracheostomy present (On vent) Resp: Auscultation: clear to auscultation bilaterally Cardio: Rate: tachycardic Rhythm: regular rhythm Heart sounds: no gallops, no murmurs and no rubs GI: Inspection: Yes G-tube present Palpation (GI): Soft to palpation and Other GI palpation findings present ( Nontender) Auscultation: normal bowel sounds Extrem: General: Yes no pedal edema, No clubbing and No cyanosis Objective Data Labs 08/17/23 04:33 08/17/23 04:33 Labs: Laboratory Results - last 24 hr 08/16/23 08/16/23 08/16/23 11:03 12:03 13:02 WBC RBC Hgb Hct MCV MCH MCHC RDW Plt Count MPV Immature Gran % (Auto) Neut % (Auto) Lymph % (Auto) [place] % (Auto) Eos % (Auto) Baso % (Auto) Lymph # (Auto) [place] # (Auto) Eos # (Auto) Baso # (Auto) Abs Immat Gran (auto) Absolute Neuts (auto) Absolute Nucleated RBC Nucleated RBC % (auto) Neutrophils % (Manual) Band Neutrophils % Lymphocytes % (Manual) Monocytes % (Manual) Metamyelocytes % Abs Neuts (Manual) Lymphocytes # (Manual) Monocytes # (Manual) Metamyelocytes # Nucleated RBCs Toxic Granulation Toxic Vacuolation Platelet Estimate Large Platelets Plt Morphology Comment RBC Morphology Polychromasia VBG pH VBG pCO2 VBG pO2 VBG HCO3 VBG O2 Saturation VBG Base Excess Sodium Potassium Chloride Carbon Dioxide Anion Gap BUN Creatinine Estim Creat Clear Calc Estimated GFR POC Glucose 290 H 293 H 253 H Random Glucose Calcium Phosphorus Magnesium Albumin 08/16/23 08/16/23 08/16/23 14:01 15:05 16:11 WBC RBC Hgb Hct MCV MCH MCHC RDW Plt Count MPV Immature Gran % (Auto) Neut % (Auto) Lymph % (Auto) [place] % (Auto) Eos % (Auto) Baso % (Auto) Lymph # (Auto) [place] # (Auto) Eos # (Auto) Baso # (Auto) Abs Immat Gran (auto) Absolute Neuts (auto) Absolute Nucleated RBC Nucleated RBC % (auto) Neutrophils % (Manual) Band Neutrophils % Lymphocytes % (Manual) Monocytes % (Manual) Metamyelocytes % Abs Neuts (Manual) Lymphocytes # (Manual) Monocytes # (Manual) Metamyelocytes # Nucleated RBCs Toxic Granulation Toxic Vacuolation Platelet Estimate Large Platelets Plt Morphology Comment RBC Morphology Polychromasia VBG pH VBG pCO2 VBG pO2 VBG HCO3 VBG O2 Saturation VBG Base Excess Sodium Potassium Chloride Carbon Dioxide Anion Gap BUN Creatinine Estim Creat Clear Calc Estimated GFR POC Glucose 229 H 217 H 227 H Random Glucose Calcium Phosphorus Magnesium Albumin 08/16/23 08/16/23 08/16/23 17:00 18:12 19:27 WBC RBC Hgb Hct MCV MCH MCHC RDW Plt Count MPV Immature Gran % (Auto) Neut % (Auto) Lymph % (Auto) [place] % (Auto) Eos % (Auto) Baso % (Auto) Lymph # (Auto) [place] # (Auto) Eos # (Auto) Baso # (Auto) Abs Immat Gran (auto) Absolute Neuts (auto) Absolute Nucleated RBC Nucleated RBC % (auto) Neutrophils % (Manual) Band Neutrophils % Lymphocytes % (Manual) Monocytes % (Manual) Metamyelocytes % Abs Neuts (Manual) Lymphocytes # (Manual) Monocytes # (Manual) Metamyelocytes # Nucleated RBCs Toxic Granulation Toxic Vacuolation Platelet Estimate Large Platelets Plt Morphology Comment RBC Morphology Polychromasia VBG pH VBG pCO2 VBG pO2 VBG HCO3 VBG O2 Saturation VBG Base Excess Sodium 142 Potassium 3.7 Chloride 101 Carbon Dioxide 29 Anion Gap 16 BUN 11 Creatinine 0.54 Estim Creat Clear Calc 120.4 Estimated GFR > 60 POC Glucose 183 H 149 H Random Glucose 174 H Calcium 9.9 Phosphorus 3.5 Magnesium 1.6 Albumin 08/16/23 08/16/23 08/16/23 20:01 21:56 22:58 WBC RBC Hgb Hct MCV MCH MCHC RDW Plt Count MPV Immature Gran % (Auto) Neut % (Auto) Lymph % (Auto) [place] % (Auto) Eos % (Auto) Baso % (Auto) Lymph # (Auto) [place] # (Auto) Eos # (Auto) Baso # (Auto) Abs Immat Gran (auto) Absolute Neuts (auto) Absolute Nucleated RBC Nucleated RBC % (auto) Neutrophils % (Manual) Band Neutrophils % Lymphocytes % (Manual) Monocytes % (Manual) Metamyelocytes % Abs Neuts (Manual) Lymphocytes # (Manual) Monocytes # (Manual) Metamyelocytes # Nucleated RBCs Toxic Granulation Toxic Vacuolation Platelet Estimate Large Platelets Plt Morphology Comment RBC Morphology Polychromasia VBG pH VBG pCO2 VBG pO2 VBG HCO3 VBG O2 Saturation VBG Base Excess Sodium Potassium Chloride Carbon Dioxide Anion Gap BUN Creatinine Estim Creat Clear Calc Estimated GFR POC Glucose 166 H 231 H 214 H Random Glucose Calcium Phosphorus Magnesium Albumin 08/16/23 08/17/23 08/17/23 23:59 01:01 03:02 WBC RBC Hgb Hct MCV MCH MCHC RDW Plt Count MPV Immature Gran % (Auto) Neut % (Auto) Lymph % (Auto) [place] % (Auto) Eos % (Auto) Baso % (Auto) Lymph # (Auto) [place] # (Auto) Eos # (Auto) Baso # (Auto) Abs Immat Gran (auto) Absolute Neuts (auto) Absolute Nucleated RBC Nucleated RBC % (auto) Neutrophils % (Manual) Band Neutrophils % Lymphocytes % (Manual) Monocytes % (Manual) Metamyelocytes % Abs Neuts (Manual) Lymphocytes # (Manual) Monocytes # (Manual) Metamyelocytes # Nucleated RBCs Toxic Granulation Toxic Vacuolation Platelet Estimate Large Platelets Plt Morphology Comment RBC Morphology Polychromasia VBG pH VBG pCO2 VBG pO2 VBG HCO3 VBG O2 Saturation VBG Base Excess Sodium Potassium Chloride Carbon Dioxide Anion Gap BUN Creatinine Estim Creat Clear Calc Estimated GFR POC Glucose 192 H 173 H 197 H Random Glucose Calcium Phosphorus Magnesium Albumin 08/17/23 08/17/23 08/17/23 04:18 04:33 05:06 WBC 16.4 H RBC 3.76 L Hgb 11.0 L Hct 35.3 L MCV 93.9 MCH 29.3 MCHC 31.2 RDW 16.6 H Plt Count 402 H MPV 9.7 Immature Gran % (Auto) Cancelled Neut % (Auto) Cancelled Lymph % (Auto) Cancelled [place] % (Auto) Cancelled Eos % (Auto) Cancelled Baso % (Auto) Cancelled Lymph # (Auto) Cancelled [place] # (Auto) Cancelled Eos # (Auto) Cancelled Baso # (Auto) Cancelled Abs Immat Gran (auto) Cancelled Absolute Neuts (auto) Cancelled Absolute Nucleated RBC 0.340 H Nucleated RBC % (auto) 2.1 H Neutrophils % (Manual) 75 H Band Neutrophils % 15 H Lymphocytes % (Manual) 5 L Monocytes % (Manual) 3 Metamyelocytes % 2 Abs Neuts (Manual) 14.8 H Lymphocytes # (Manual) 0.8 L Monocytes # (Manual) 0.5 Metamyelocytes # 0.3 Nucleated RBCs 2 H Toxic Granulation PRESENT Toxic Vacuolation PRESENT Platelet Estimate NORMAL Large Platelets PRESENT Plt Morphology Comment NOTED RBC Morphology NOTED Polychromasia 2+ (3-5) VBG pH 7.54 H VBG pCO2 38 VBG pO2 50 VBG HCO3 32 H VBG O2 Saturation 83.0 VBG Base Excess 9.7 Sodium 141 Potassium 3.6 Chloride 98 Carbon Dioxide 32 H Anion Gap 15 BUN 11 Creatinine 0.63 Estim Creat Clear Calc 103.2 Estimated GFR > 60 POC Glucose 180 H Random Glucose 187 H Calcium 10.7 H D Phosphorus 3.1 Magnesium 1.8 Albumin 3.8 08/17/23 08/17/23 06:54 09:05 WBC RBC Hgb Hct MCV MCH MCHC RDW Plt Count MPV Immature Gran % (Auto) Neut % (Auto) Lymph % (Auto) [place] % (Auto) Eos % (Auto) Baso % (Auto) Lymph # (Auto) [place] # (Auto) Eos # (Auto) Baso # (Auto) Abs Immat Gran (auto) Absolute Neuts (auto) Absolute Nucleated RBC Nucleated RBC % (auto) Neutrophils % (Manual) Band Neutrophils % Lymphocytes % (Manual) Monocytes % (Manual) Metamyelocytes % Abs Neuts (Manual) Lymphocytes # (Manual) Monocytes # (Manual) Metamyelocytes # Nucleated RBCs Toxic Granulation Toxic Vacuolation Platelet Estimate Large Platelets Plt Morphology Comment RBC Morphology Polychromasia VBG pH VBG pCO2 VBG pO2 VBG HCO3 VBG O2 Saturation VBG Base Excess Sodium Potassium Chloride Carbon Dioxide Anion Gap BUN Creatinine Estim Creat Clear Calc Estimated GFR POC Glucose 164 H 183 H Random Glucose Calcium Phosphorus Magnesium Albumin Microbiology Microbiology Results: Microbiology 08/03/23 16:38 Sputum - Expectorated Gram Stain - Final 08/03/23 16:38 Sputum - Expectorated Sputum Culture - Preliminary Filamentous fungus 08/02/23 14:20 Blood - Venous Blood Culture - Final No growth after 5 days. 08/02/23 13:36 Blood - Venous Blood Culture - Final No growth after 5 days. Progress Note: A&P Assessment and plan (1) Status post tracheostomy: Status: Acute (2) Status post insertion of percutaneous endoscopic gastrostomy (PEG) tube: Status: Acute (3) Encephalopathy acute: Status: Acute (4) Opioid dependence: Status: Acute (5) Type 2 diabetes mellitus: Status: Acute (6) Diastolic heart failure: Status: Acute (7) Acute on chronic respiratory failure with hypoxia and hypercapnia: Status: Acute (8) COPD (chronic obstructive pulmonary disease): Status: Acute Plan Assessment: 53-year-old lady with underlying CHITO with obesity hyperventilation, asthma/COPD, obesity, diastolic heart failure admitted with acute on chronic hypoxic and hypercapnic respiratory failure now requiring ventilatory support. Plan: Neuro: Poor arousal with sedation vacation, methadone stopped. MRI head is essentially normal. Significantly improving, now following commands with sedation vacation. Cardiac: Acute on chronic diastolic congestive heart failure resolved with diuresis. Pulmonary: Acute on chronic hypoxic and hypercapnic respiratory failure now requiring ventilatory support. Failed extubation 08/11/2023. Now status post tracheostomy/gastrostomy on 08/12/2023. Now starting to tolerate pressure support trials. Continue to titrate off ventilatory support as tolerated. Renal: No acute issues. Endo: No acute issues. GI: No acute issues. ID: No acute issues Heme/Onc: No acute issues. Psych: No acute issues. Underlying opioid dependence. Miscellaneous: No acute issues. Prophylaxis: Heparin, famotidine Diet: Tube feed Critical care time spent: 60 minutes Quality Stroke Does the patient have a stroke diagnosis?: No VTE Prior VTE?: No VTE Risk Level:: Medical - moderate - high VTE Device Contraindication: Treatment Not Indicated VTE Drug Contraindication: N/A - Med Ordered
[2023-08-17 11:10] LABS: Glucose, Whole Blood 219 mg/dL (60-115)
[2023-08-17] MEDS: Insulin Regular/NS 100 UNIT/100 ML PLAST..BAG 10 UNIT IVCONT ×2 (11:24→22:03)
[2023-08-17 12:00] LABS: Glucose, Whole Blood 180 mg/dL (60-115)
[2023-08-17] MEDS: propofoL 1,000 MG/100 ML VIAL 10.81 MG IVCONT (12:22)
[2023-08-17 13:04] LABS: Glucose, Whole Blood 173 mg/dL (60-115)
[2023-08-17 14:00] LABS: Glucose, Whole Blood 149 mg/dL (60-115)
[2023-08-17 16:06] LABS: Glucose, Whole Blood 166 mg/dL (60-115)
[2023-08-17 18:11] LABS: Glucose, Whole Blood 171 mg/dL (60-115)
[2023-08-17] MEDS: propofoL 1,000 MG/100 ML VIAL 21.62 MG IVCONT ×2 (18:37→22:45)
[2023-08-17] MEDS: Midazolam HCl/PF 2 MG/2 ML VIAL 4 MG IVPUSH (18:43)
[2023-08-17 20:03] LABS: Glucose, Whole Blood 233 mg/dL (60-115)
[2023-08-17 20:41] LABS: Anion Gap 20 (12-20); Blood Urea Nitrogen 11 mg/dL (9-16); Calcium 10.4 mg/dL (8.4-10.2); Carbon Dioxide 21 mmol/L (22-29); Chloride 101 mmol/L (96-108); Creatinine Clr Calc Pharmacy 106.6; Estimated Glomerular Filt Rate > 60; Glucose Random 225 mg/dL (60-115); Magnesium 1.6 mg/dL (1.6-2.6); Potassium 4.5 mmol/L (3.3-5.1); Sodium 137 mmol/L (135-145)
[2023-08-17 21:08] LABS: Glucose, Whole Blood 232 mg/dL (60-115)
[2023-08-17 23:05] LABS: Glucose, Whole Blood 201 mg/dL (60-115)
[2023-08-18] VITALS (40 sets, daily range): BP systolic 107–153; BP diastolic 63–95; PULSE 107–133; RESP 16–30; TEMP 34.8–38.4; O2SAT 89–96
[2023-08-18] MEDS: Heparin Sodium,Porcine 5,000 UNIT/ML VIAL 5000 UNIT SUBCUT ×2 (01:08→17:47)
[2023-08-18] MEDS: 0.9 % Sodium Chloride Flush 3 ML SYRINGE IVFLUSH ×4 (01:08→22:29)
[2023-08-18 01:14] LABS: Glucose, Whole Blood 202 mg/dL (60-115)
[2023-08-18] MEDS: propofoL 1,000 MG/100 ML VIAL 21.62 MG IVCONT ×2 (02:10→06:15)
[2023-08-18 03:07] LABS: Glucose, Whole Blood 183 mg/dL (60-115)
[2023-08-18] MEDS: Metoprolol Tartrate 5 MG/5 ML VIAL IVPUSH ×4 (04:19→22:29)
[2023-08-18 05:21] LABS: Glucose, Whole Blood 286 mg/dL (60-115)
[2023-08-18 05:36] LABS: VBG Base Excess 5.1 mmol/L; VBG HCO3 30 mmol/L (22-26); VBG pCO2 46 mmHg; VBG pH 7.42 (7.32-7.43); VBG pO2 52 mmHg
[2023-08-18 05:37] LABS: Venous Blood Gas Refer to POC result
[2023-08-18 06:01] LABS: Hematocrit 33.5 % (37.0-47.0); Hemoglobin 10.3 g/dl (12.0-16.0); Mean Corpuscular HGB Conc 30.7 g/dl (31.0-35.0); Mean Corpuscular Hemoglobin 29.2 pg (27.0-33.0); Mean Corpuscular Volume 94.9 fL (80.0-98.0); Platelet Count 399 X10*3/uL (160-400); Red Blood Count 3.53 X10*6/uL (4.20-5.50)
[2023-08-18 06:02] LABS: NRBC Pct Auto 2.9 /100WBC (0.0-0.2); WBC ABN SCTR FOR CBC 1; White Blood Count 17.4 X10*3/uL (4.8-10.8)
[2023-08-18 06:14] LABS: Glucose, Whole Blood 279 mg/dL (60-115)
[2023-08-18 06:24] LABS: Albumin Level 3.3 g/dL (3.5-5.0); Anion Gap 19 (12-20); Blood Urea Nitrogen 14 mg/dL (9-16); Calcium 10.6 mg/dL (8.4-10.2); Carbon Dioxide 27 mmol/L (22-29); Chloride 96 mmol/L (96-108); Creatinine Clr Calc Pharmacy 82.3; Estimated Glomerular Filt Rate > 60; Glucose Random 303 mg/dL (60-115); Magnesium 1.4 mg/dL (1.6-2.6); Phosphorus 3.7 mg/dL (2.7-4.5); Potassium 4.2 mmol/L (3.3-5.1); Sodium 138 mmol/L (135-145)
[2023-08-18 07:03] LABS: Glucose, Whole Blood 251 mg/dL (60-115)
[2023-08-18 07:23] LABS: Band Neutrophils Percent 16 % (3-5); Lymphocytes Absolute Manual 0.7 X10*3/uL (1.2-4.9); Lymphocytes Percent Manual 4 % (20-40); Metamyelocytes Percent 6 %; Monocytes Absolute Manual 0.3 X10*3/uL (0.1-1.2); Monocytes Percent Manual 2 % (2-11); Myelocytes Absolute 0.3 X10*/uL; Myelocytes Percent 2 %; Neutrophils Absolute Manual 14.8 X10*3/uL (2.0-8.3); Neutrophils Percent Manual 69 % (45-73); Nucleated Red Blood Cells 2 /100WBC (0-0); Promyelocytes Absolute 0.2 X10*3/uL; Promyelocytes Percent 1 %
[2023-08-18 07:26] LABS: Hypochromasia 1+ (5-14) /OIF; Platelet Estimate NORMAL (NORMAL); Platelet Morphology Comment NORMAL; Polychromasia 2+ (3-5) /OIF; RBC Morphology NOTED
[2023-08-18] MEDS: Chlorhexidine Gluc Oral Rinse 15 ML MOUTHWASH BUCCAL ×3 (07:58→20:33)
[2023-08-18] MEDS: Magnesium Sulfate/H2O 2 GM/50 ML PIGGYBACK IV (07:58)
[2023-08-18] MEDS: Albuterol/Iprat 2.5/0.5MG 3 ML AMPUL.NEB INHALE ×4 (08:14→20:56)
[2023-08-18] MEDS: Albumin Human 25 % 100 ML IV ×2 (08:44→14:42)
[2023-08-18] MEDS: Furosemide 40 MG/4 ML VIAL IVPUSH ×2 (08:45→17:47)
[2023-08-18] MEDS: Famotidine/PF 20 MG/2 ML VIAL IVPUSH (08:45)
[2023-08-18] MEDS: Calcitonin,Salmon,Synth Nasal 3.7 ML BOTTLE 1 SPRAY NOSTRIL-B (08:45)
[2023-08-18 08:46] LABS: Glucose, Whole Blood 252 mg/dL (60-115)
[2023-08-18 09:51] LABS: Glucose, Whole Blood 262 mg/dL (60-115)
--- NOTE | 2023-08-18 10:32 | MHC.CLN ---
F/U REVIEWED LABS NOTED WOUND STAGED DTI COCCYX, STAGE 2 L & R BUTTOCKS PT RECEIVING GLUCERNA AT MAX GOAL RATE 55ML/HR WITH 30ML PROSOURCE BID AND 240ML FREE WATER FLUSHES Q 8 HRS PROVIDES 1440TOTAL KCALS (2011KCALS WITH SEDATION; 34KCALS/KG BASED ON CMW), 85G TOTAL PROTEIN (1.4G/KG), 1846ML TOTAL WATER FROM FORMULA AND FLUSHES (31ML/KG) TF WILL PROMOTE WOUND HEALING MONITOR TOLERANCE, RESIDUALS AND LYTES
--- NOTE | 2023-08-18 11:05 | PM.EVENT ---
Event Note Date of Service: 08/19/23 Event Note: PEG tube accidently pulled out while pt was being washed otherwise had been funcitoning well Staff temporarily placed a gauge 16 Adan catheter earlier without difficulty I replaced this with an 18 CHINO replacement tube tract seems to be patent will need to check KUB with gastrografin to confirm intraluminal location of replacement tube prior to restarting feed abdomen soft and benign dw ICU staff Time Spent With Patient Time: Total time managing care of this patient today ____ minutes.
[2023-08-18 11:42] LABS: Glucose, Whole Blood 323 mg/dL (60-115)
[2023-08-18] MEDS: Insulin Lispro 100 UNIT/ML 3 ML VIAL SUBCUT ×4 (12:05→23:36)
[2023-08-18] MEDS: dilTIAZem HCL 60 MG TABLET PO ×3 (12:27→20:33)
--- NOTE | 2023-08-18 12:38 | PC.NURSE ---
Assumed care at 0700- Pt. mechanically vented and sedated with propofol gtt per EMAR. Morning bed bath performed-during care PEG tube became dislodged. Surgical site with moderate amount of TF colored drainage- covered with ABD pad by this RN, [employer] called to bedside. Adan catheter placed in PEG tube site by DRINK B[employer] MECHANIC. Dr. Bonner made aware. Pt VSS- see VS flowsheet. Unable to administer morning PO medications- see EMAR. Approx 1100 Dr. Bonner at bedside- new PEG tube placed by MD. PEG tube placement confirmed via KUB XRAY- see report. TF resumed per MD. Plan of care ongoing.
--- NOTE | 2023-08-18 12:49 | P.PNCC_ITS ---
Subjective Subjective Date of Service: 08/18/23 Interval History: This morning patient had PEG tube dislodgement and an emergent Adan was placed to keep the track intact Continues to be on ventilator support through tracheostomy Critical Care Time (minutes): 37 Physical Exam 2 Vital Signs: Vital Signs: Last Vital Signs Temp 100.1 F 08/18/23 11:00 Pulse 125 H 08/18/23 12:27 Resp 25 H 08/18/23 12:05 BP 149/88 H 08/18/23 12:27 Pulse Ox 93 08/18/23 11:00 O2 Del Method Mechanical Ventil ation 08/18/23 11:00 O2 Flow Rate 90 08/05/23 15:52 FiO2 35 08/18/23 12:06 BMI result Body Mass Index 38.8 General: Patient in acute distress, ill appearing and tired appearing Nutritional Appearance: well nourished and overweight Eyes: appearance normal, both eyes and all related structures; Alignment and Position: alignment normal and position normal Neck: No lymphadenopathy, no thyromegaly Resp: bilateral air entry equal, occasional added sounds present and wheezes heard Cardio: Regular rate, regular rhythm; Heart sounds: S1 normal heart sound present and S2 normal heart sound present GI: soft, nontender, no guarding, no hepatosplenomegaly : bladder normal to inspection, bladder normal to palpation, no renal angle tenderness Skin: no rashes or lesions noted and elasticity normal Neuro: Sedated with propofol Objective Data Labs 08/18/23 05:31 08/18/23 05:31 Labs: Laboratory Results - last 24 hr 08/17/23 08/17/23 08/17/23 13:01 13:57 16:03 WBC RBC Hgb Hct MCV MCH MCHC RDW Plt Count MPV Immature Gran % (Auto) Neut % (Auto) Lymph % (Auto) [place] % (Auto) Eos % (Auto) Baso % (Auto) Lymph # (Auto) [place] # (Auto) Eos # (Auto) Baso # (Auto) Abs Immat Gran (auto) Absolute Neuts (auto) Absolute Nucleated RBC Nucleated RBC % (auto) Neutrophils % (Manual) Band Neutrophils % Lymphocytes % (Manual) Monocytes % (Manual) Metamyelocytes % Myelocytes % Promyelocytes % Abs Neuts (Manual) Lymphocytes # (Manual) Monocytes # (Manual) Metamyelocytes # Myelocytes # Promyelocytes # Nucleated RBCs Platelet Estimate Plt Morphology Comment RBC Morphology Polychromasia Hypochromasia VBG pH VBG pCO2 VBG pO2 VBG HCO3 VBG O2 Saturation VBG Base Excess Sodium Potassium Chloride Carbon Dioxide Anion Gap BUN Creatinine Estim Creat Clear Calc Estimated GFR POC Glucose 173 H 149 H 166 H Random Glucose Calcium Phosphorus Magnesium Albumin 08/17/23 08/17/23 08/17/23 18:08 19:11 20:00 WBC RBC Hgb Hct MCV MCH MCHC RDW Plt Count MPV Immature Gran % (Auto) Neut % (Auto) Lymph % (Auto) [place] % (Auto) Eos % (Auto) Baso % (Auto) Lymph # (Auto) [place] # (Auto) Eos # (Auto) Baso # (Auto) Abs Immat Gran (auto) Absolute Neuts (auto) Absolute Nucleated RBC Nucleated RBC % (auto) Neutrophils % (Manual) Band Neutrophils % Lymphocytes % (Manual) Monocytes % (Manual) Metamyelocytes % Myelocytes % Promyelocytes % Abs Neuts (Manual) Lymphocytes # (Manual) Monocytes # (Manual) Metamyelocytes # Myelocytes # Promyelocytes # Nucleated RBCs Platelet Estimate Plt Morphology Comment RBC Morphology Polychromasia Hypochromasia VBG pH VBG pCO2 VBG pO2 VBG HCO3 VBG O2 Saturation VBG Base Excess Sodium 137 Potassium 4.5 D Chloride 101 Carbon Dioxide 21 L Anion Gap 20 BUN 11 Creatinine 0.61 Estim Creat Clear Calc 106.6 Estimated GFR > 60 POC Glucose 171 H 233 H Random Glucose 225 H Calcium 10.4 H Phosphorus 3.0 Magnesium 1.6 Albumin 08/17/23 08/17/23 08/18/23 21:04 23:02 01:08 WBC RBC Hgb Hct MCV MCH MCHC RDW Plt Count MPV Immature Gran % (Auto) Neut % (Auto) Lymph % (Auto) [place] % (Auto) Eos % (Auto) Baso % (Auto) Lymph # (Auto) [place] # (Auto) Eos # (Auto) Baso # (Auto) Abs Immat Gran (auto) Absolute Neuts (auto) Absolute Nucleated RBC Nucleated RBC % (auto) Neutrophils % (Manual) Band Neutrophils % Lymphocytes % (Manual) Monocytes % (Manual) Metamyelocytes % Myelocytes % Promyelocytes % Abs Neuts (Manual) Lymphocytes # (Manual) Monocytes # (Manual) Metamyelocytes # Myelocytes # Promyelocytes # Nucleated RBCs Platelet Estimate Plt Morphology Comment RBC Morphology Polychromasia Hypochromasia VBG pH VBG pCO2 VBG pO2 VBG HCO3 VBG O2 Saturation VBG Base Excess Sodium Potassium Chloride Carbon Dioxide Anion Gap BUN Creatinine Estim Creat Clear Calc Estimated GFR POC Glucose 232 H 201 H 202 H Random Glucose Calcium Phosphorus Magnesium Albumin 08/18/23 08/18/23 08/18/23 03:03 05:17 05:28 WBC RBC Hgb Hct MCV MCH MCHC RDW Plt Count MPV Immature Gran % (Auto) Neut % (Auto) Lymph % (Auto) [place] % (Auto) Eos % (Auto) Baso % (Auto) Lymph # (Auto) [place] # (Auto) Eos # (Auto) Baso # (Auto) Abs Immat Gran (auto) Absolute Neuts (auto) Absolute Nucleated RBC Nucleated RBC % (auto) Neutrophils % (Manual) Band Neutrophils % Lymphocytes % (Manual) Monocytes % (Manual) Metamyelocytes % Myelocytes % Promyelocytes % Abs Neuts (Manual) Lymphocytes # (Manual) Monocytes # (Manual) Metamyelocytes # Myelocytes # Promyelocytes # Nucleated RBCs Platelet Estimate Plt Morphology Comment RBC Morphology Polychromasia Hypochromasia VBG pH 7.42 VBG pCO2 46 VBG pO2 52 VBG HCO3 30 H VBG O2 Saturation 80.0 VBG Base Excess 5.1 Sodium Potassium Chloride Carbon Dioxide Anion Gap BUN Creatinine Estim Creat Clear Calc Estimated GFR POC Glucose 183 H 286 H Random Glucose Calcium Phosphorus Magnesium Albumin 08/18/23 08/18/23 08/18/23 05:31 06:10 07:01 WBC 17.4 H RBC 3.53 L Hgb 10.3 L Hct 33.5 L MCV 94.9 MCH 29.2 MCHC 30.7 L RDW 17.0 H Plt Count 399 MPV 10.0 Immature Gran % (Auto) Cancelled Neut % (Auto) Cancelled Lymph % (Auto) Cancelled [place] % (Auto) Cancelled Eos % (Auto) Cancelled Baso % (Auto) Cancelled Lymph # (Auto) Cancelled [place] # (Auto) Cancelled Eos # (Auto) Cancelled Baso # (Auto) Cancelled Abs Immat Gran (auto) Cancelled Absolute Neuts (auto) Cancelled Absolute Nucleated RBC 0.500 H Nucleated RBC % (auto) 2.9 H Neutrophils % (Manual) 69 Band Neutrophils % 16 H Lymphocytes % (Manual) 4 L Monocytes % (Manual) 2 Metamyelocytes % 6 Myelocytes % 2 Promyelocytes % 1 Abs Neuts (Manual) 14.8 H Lymphocytes # (Manual) 0.7 L Monocytes # (Manual) 0.3 Metamyelocytes # 1.0 Myelocytes # 0.3 Promyelocytes # 0.2 Nucleated RBCs 2 H Platelet Estimate NORMAL Plt Morphology Comment NORMAL RBC Morphology NOTED Polychromasia 2+ (3-5) Hypochromasia 1+ (5-14) VBG pH VBG pCO2 VBG pO2 VBG HCO3 VBG O2 Saturation VBG Base Excess Sodium 138 Potassium 4.2 Chloride 96 Carbon Dioxide 27 Anion Gap 19 BUN 14 Creatinine 0.79 Estim Creat Clear Calc 82.3 Estimated GFR > 60 POC Glucose 279 H 251 H Random Glucose 303 H Calcium 10.6 H Phosphorus 3.7 Magnesium 1.4 L* Albumin 3.3 L 08/18/23 08/18/23 08/18/23 08:43 09:47 11:39 WBC RBC Hgb Hct MCV MCH MCHC RDW Plt Count MPV Immature Gran % (Auto) Neut % (Auto) Lymph % (Auto) [place] % (Auto) Eos % (Auto) Baso % (Auto) Lymph # (Auto) [place] # (Auto) Eos # (Auto) Baso # (Auto) Abs Immat Gran (auto) Absolute Neuts (auto) Absolute Nucleated RBC Nucleated RBC % (auto) Neutrophils % (Manual) Band Neutrophils % Lymphocytes % (Manual) Monocytes % (Manual) Metamyelocytes % Myelocytes % Promyelocytes % Abs Neuts (Manual) Lymphocytes # (Manual) Monocytes # (Manual) Metamyelocytes # Myelocytes # Promyelocytes # Nucleated RBCs Platelet Estimate Plt Morphology Comment RBC Morphology Polychromasia Hypochromasia VBG pH VBG pCO2 VBG pO2 VBG HCO3 VBG O2 Saturation VBG Base Excess Sodium Potassium Chloride Carbon Dioxide Anion Gap BUN Creatinine Estim Creat Clear Calc Estimated GFR POC Glucose 252 H 262 H 323 H Random Glucose Calcium Phosphorus Magnesium Albumin Microbiology Microbiology Results: Microbiology 08/03/23 16:38 Sputum - Expectorated Gram Stain - Final 08/03/23 16:38 Sputum - Expectorated Sputum Culture - Final Aspergillus niger 08/02/23 14:20 Blood - Venous Blood Culture - Final No growth after 5 days. 08/02/23 13:36 Blood - Venous Blood Culture - Final No growth after 5 days. Progress Note: A&P Assessment and plan (1) Status post tracheostomy: Status: Acute (2) Encephalopathy acute: Status: Acute (3) Opioid dependence: Status: Acute (4) Acute exacerbation of chronic obstructive airways disease: Status: Acute (5) Acute on chronic respiratory failure with hypoxia and hypercapnia: Status: Acute Plan 53 year old female with history of chronic hypoxic and hypercarbic respiratory failure on 2 L nasal cannula and BiPAP at night, CHITO/OHS/asthma/COPD overlap, chronic methadone use, diabetes, recurrent admissions for respiratory failure was admitted to the floor on 08/02/2023 and on 08/05/2023 patient became extremely lethargic, unresponsive while on BiPAP due to worsening hypercapnic respiratory failure needing intubation and ventilator support. Given patient's chronic respiratory failure needing multiple admissions and failed extubation on 08/11/2023 she underwent tracheostomy and PEG tube placement on 08/12/2023 Acute encephalopathy: Secondary to metabolic encephalopathy On propofol for sedation and fentanyl for analgesia We will taper off propofol as tolerated to wean her off the ventilator Acute on chronic respiratory failure: Has significant underlying chronic lung disease with poor reserve now intubated and on ventilator support for acute exacerbation of COPD Currently she is status post tracheostomy tube placement Changed her from PRVC to pressure support mode this morning, tidal volumes in mid 200s rate high 20s Patient is planned to go to the operating room for repeat placement of the PEG tube. Once the patient comes back we will try to wean her off the ventilator PEG tube dislodgement: Had an accidental PEG tube dislodgement this morning replaced with the Adan catheter Gastrografin x-ray showed tube is still in stomach Plan to go to the operating room for repeat PEG tube placement Heart failure with preserved ejection fraction: Diuresis to keep fluid balance even Continue metoprolol and diltiazem Prophylaxis: Lovenox, pantoprazole Quality Stroke Does the patient have a stroke diagnosis?: No VTE Prior VTE?: No VTE Risk Level:: Medical - moderate - high VTE Device Contraindication: Treatment Not Indicated VTE Drug Contraindication: N/A - Med Ordered
[2023-08-18] MEDS: Lactulose 20 GM/30 ML SOLUTION PO ×2 (14:47→20:33)
--- NOTE | 2023-08-18 14:50 | MHC.CM.PN ---
Met w/pt and her long time partner Drew to review d/c planning. Drew states that pt's primary HCP, Tona (pt's dtr) is not an accurate historian and hasn't relayed information correctly to family. Drew understands that Anju remains confused at times and is not able to complete a new HCP. Using interpreting services, CM and Drew agree that any information re: d/c planning will be relayed to both Yanya and HCP 2 Miguel (pt's son) Miguel can then update pt's remaining family. Drew is listed on pt's contact list. CM explained LTACH criteria and state limitations with new trach placements. Drew verbalized understanding. Pt has been referred to [facility] for placement: not medically stable for transfer at this time.
[2023-08-18] MEDS: Midazolam HCl/PF 2 MG/2 ML VIAL 4 MG IVPUSH (15:34)
--- NOTE | 2023-08-18 16:57 | PM.EVENT ---
Event Note Date of Service: 08/18/23 Event Note: KUB with gastrograffin shows PEG to be in stomach, contrast flowing into small bowel PEG feeds already restarted by ICU abd remains soft and benign no leakage from PEG site PEG tube care rest of care as per ICU Time Spent With Patient Time: Total time managing care of this patient today ____ minutes.
[2023-08-18 17:20] LABS: Glucose, Whole Blood 398 mg/dL (60-115)
[2023-08-18] MEDS: HYDROmorphone HCl 0.5 MG/0.5 ML SYRINGE IM (17:47)
[2023-08-18] MEDS: HYDROmorphone HCl 0.5 MG/0.5 ML SYRINGE IVPUSH (19:35)
[2023-08-18 23:31] LABS: Glucose, Whole Blood 413 mg/dL (60-115)
[2023-08-19] VITALS (40 sets, daily range): BP systolic 115–169; BP diastolic 66–97; PULSE 119–136; RESP 14–122; TEMP 34.8–38.1; O2SAT 88–97; BMI 40.5
[2023-08-19] MEDS: Midazolam HCl/PF 2 MG/2 ML VIAL 4 MG IVPUSH ×2 (00:37→03:34)
[2023-08-19] MEDS: Heparin Sodium,Porcine 5,000 UNIT/ML VIAL 5000 UNIT SUBCUT ×3 (00:38→18:00)
[2023-08-19] MEDS: HYDROmorphone HCl 0.5 MG/0.5 ML SYRINGE IVPUSH ×2 (01:23→05:45)
[2023-08-19] MEDS: Metoprolol Tartrate 5 MG/5 ML VIAL IVPUSH ×5 (03:30→23:09)
[2023-08-19 05:53] LABS: VBG Base Excess 17.1 mmol/L; VBG HCO3 39 mmol/L (22-26); VBG pCO2 36 mmHg; VBG pH 7.64 (7.32-7.43); VBG pO2 44 mmHg
[2023-08-19 05:57] LABS: Venous Blood Gas Refer to POC result
[2023-08-19 06:16] LABS: Glucose, Whole Blood 486 mg/dL (60-115)
[2023-08-19] MEDS: Insulin Lispro 100 UNIT/ML 3 ML VIAL SUBCUT ×2 (06:17→11:43)
[2023-08-19 06:22] LABS: Alanine Aminotransferase 27 U/L (0-31); Albumin Level 3.6 g/dL (3.5-5.0); Alkaline Phosphatase 90 U/L (39-117); Anion Gap 18 (12-20); Aspartate Amino Transferase 21 U/L (5-31); Bilirubin Total 0.6 mg/dL (0.0-1.0); Blood Urea Nitrogen 15 mg/dL (9-16); Calcium 10.7 mg/dL (8.4-10.2); Carbon Dioxide 35 mmol/L (22-29); Chloride 88 mmol/L (96-108); Creatinine Clr Calc Pharmacy 79.3; Estimated Glomerular Filt Rate > 60; Glucose Random 536 mg/dL (60-115); Hematocrit 33.6 % (37.0-47.0); Hemoglobin 10.4 g/dl (12.0-16.0); Mean Corpuscular Hemoglobin 29.3 pg (27.0-33.0); Mean Corpuscular Volume 94.6 fL (80.0-98.0); Mean Platelet Volume 10.4 fL (9.4-12.3); Platelet Count 446 X10*3/uL (160-400); Potassium 4.5 mmol/L (3.3-5.1); Red Blood Count 3.55 X10*6/uL (4.20-5.50); Red Cell Distribution Width 17.2 % (11.0-16.0); Sodium 136 mmol/L (135-145); Total Protein 7.2 g/dL (6.5-8.0)
[2023-08-19 06:24] LABS: NRBC Pct Auto 1.8 /100WBC (0.0-0.2); WBC ABN SCTR FOR CBC 1; White Blood Count 15.2 X10*3/uL (4.8-10.8)
[2023-08-19 07:27] LABS: Band Neutrophils Percent 12 % (3-5); Basophils Abs Manual 0.2 X10*3/uL (0.0-0.2); Basophils Percent Manual 1 % (0-2); Lymphocytes Absolute Manual 0.5 X10*3/uL (1.2-4.9); Lymphocytes Percent Manual 3 % (20-40); Metamyelocytes Absolute 0.8 X10*3/uL; Metamyelocytes Percent 5 %; Monocytes Absolute Manual 0.5 X10*3/uL (0.1-1.2); Monocytes Percent Manual 3 % (2-11); Myelocytes Absolute 0.6 X10*/uL; Myelocytes Percent 4 %; Neutrophils Absolute Manual 12.3 X10*3/uL (2.0-8.3); Neutrophils Percent Manual 69 % (45-73); Nucleated Red Blood Cells 4 /100WBC (0-0); Promyelocytes Absolute 0.5 X10*3/uL; Promyelocytes Percent 3 %
[2023-08-19 07:29] LABS: Platelet Estimate NORMAL (NORMAL); Platelet Morphology Comment NORMAL; RBC Morphology NORMAL
[2023-08-19 07:30] LABS: Polychromasia 2+ (3-5) /OIF
[2023-08-19] MEDS: Famotidine/PF 20 MG/2 ML VIAL IVPUSH (08:10)
[2023-08-19] MEDS: Furosemide 40 MG/4 ML VIAL IVPUSH ×2 (08:10→18:00)
[2023-08-19] MEDS: 0.9 % Sodium Chloride Flush 3 ML SYRINGE IVFLUSH ×3 (08:11→23:12)
[2023-08-19] MEDS: Chlorhexidine Gluc Oral Rinse 15 ML MOUTHWASH BUCCAL ×3 (08:11→20:26)
[2023-08-19] MEDS: Calcitonin,Salmon,Synth Nasal 3.7 ML BOTTLE 1 SPRAY NOSTRIL-B (08:12)
[2023-08-19] MEDS: Albuterol/Iprat 2.5/0.5MG 3 ML AMPUL.NEB INHALE ×4 (08:13→21:26)
[2023-08-19] MEDS: Insulin Glargine,Hum.rec.anlog 100 UNIT/ML 10 ML VIAL 25 UNIT SUBCUT (10:04)
--- NOTE | 2023-08-19 10:58 | MHC.CM.PN ---
Pt remains in ICU on trach/vent support: Not following all commands/inconsistent tracking: s/p peg replacement yesterday: site now leaking: feeding on hold: HR in 130's and febrile on a cooling blanket. VIBRA following for eventual placement. CM to follow.
[2023-08-19 11:27] LABS: Glucose, Whole Blood 440 mg/dL (60-115)
--- NOTE | 2023-08-19 11:50 | P.PNCC_ITS ---
Subjective Subjective Date of Service: 08/19/23 Critical Care Time (minutes): 40 Comment: Continues to be on ventilator support this morning Placed her on pressor support but she could tolerate for only about 60 minutes with very aggressive support on pressor support Leak around her PEG tube that was placed yesterday Tachycardic Physical Exam 2 Vital Signs: Vital Signs: Last Vital Signs Temp 100.0 F 08/19/23 09:00 Pulse 124 H 08/19/23 11:00 Resp 17 08/19/23 11:00 BP 145/81 H 08/19/23 11:00 Pulse Ox 92 08/19/23 11:00 O2 Del Method Mechanical Ventil ation 08/19/23 11:00 O2 Flow Rate 90 08/05/23 15:52 FiO2 35 08/19/23 11:00 BMI result Body Mass Index 40.5 General: Patient in acute distress, ill appearing and tired appearing Nutritional Appearance: well nourished and overweight Eyes: appearance normal, both eyes and all related structures; Alignment and Position: alignment normal and position normal Neck: No lymphadenopathy, no thyromegaly Resp: bilateral air entry equal, occasional added sounds present and bilateral wheeze present Cardio: Regular rate, regular rhythm; Heart sounds: S1 normal heart sound present and S2 normal heart sound present GI: soft, nontender, no guarding, no hepatosplenomegaly , PEG tube site looks okay with slight leak : bladder normal to inspection, bladder normal to palpation, no renal angle tenderness Skin: no rashes or lesions noted and elasticity normal Neuro: Opens eyes, moves all extremities Objective Data Labs 08/19/23 05:44 08/19/23 05:44 Labs: Laboratory Results - last 24 hr 08/18/23 08/18/23 08/19/23 17:14 23:28 05:41 WBC RBC Hgb Hct MCV MCH MCHC RDW Plt Count MPV Immature Gran % (Auto) Neut % (Auto) Lymph % (Auto) [place] % (Auto) Eos % (Auto) Baso % (Auto) Lymph # (Auto) [place] # (Auto) Eos # (Auto) Baso # (Auto) Abs Immat Gran (auto) Absolute Neuts (auto) Absolute Nucleated RBC Nucleated RBC % (auto) Neutrophils % (Manual) Band Neutrophils % Lymphocytes % (Manual) Monocytes % (Manual) Basophils % (Manual) Metamyelocytes % Myelocytes % Promyelocytes % Abs Neuts (Manual) Lymphocytes # (Manual) Monocytes # (Manual) Basophils # (Manual) Metamyelocytes # Myelocytes # Promyelocytes # Nucleated RBCs Platelet Estimate Plt Morphology Comment RBC Morphology Polychromasia VBG pH 7.64 H* VBG pCO2 36 VBG pO2 44 VBG HCO3 39 H VBG O2 Saturation 77.0 VBG Base Excess 17.1 Sodium Potassium Chloride Carbon Dioxide Anion Gap BUN Creatinine Estim Creat Clear Calc Estimated GFR POC Glucose 398 H* 413 H* Random Glucose Calcium Total Bilirubin AST ALT Alkaline Phosphatase Total Protein Albumin 08/19/23 08/19/23 08/19/23 05:44 06:11 11:23 WBC 15.2 H RBC 3.55 L Hgb 10.4 L Hct 33.6 L MCV 94.6 MCH 29.3 MCHC 31.0 RDW 17.2 H Plt Count 446 H MPV 10.4 Immature Gran % (Auto) Cancelled Neut % (Auto) Cancelled Lymph % (Auto) Cancelled [place] % (Auto) Cancelled Eos % (Auto) Cancelled Baso % (Auto) Cancelled Lymph # (Auto) Cancelled [place] # (Auto) Cancelled Eos # (Auto) Cancelled Baso # (Auto) Cancelled Abs Immat Gran (auto) Cancelled Absolute Neuts (auto) Cancelled Absolute Nucleated RBC 0.280 H Nucleated RBC % (auto) 1.8 H Neutrophils % (Manual) 69 Band Neutrophils % 12 H Lymphocytes % (Manual) 3 L Monocytes % (Manual) 3 Basophils % (Manual) 1 Metamyelocytes % 5 Myelocytes % 4 Promyelocytes % 3 Abs Neuts (Manual) 12.3 H Lymphocytes # (Manual) 0.5 L Monocytes # (Manual) 0.5 Basophils # (Manual) 0.2 Metamyelocytes # 0.8 Myelocytes # 0.6 Promyelocytes # 0.5 Nucleated RBCs 4 H Platelet Estimate NORMAL Plt Morphology Comment NORMAL RBC Morphology NORMAL Polychromasia 2+ (3-5) VBG pH VBG pCO2 VBG pO2 VBG HCO3 VBG O2 Saturation VBG Base Excess Sodium 136 Potassium 4.5 Chloride 88 L Carbon Dioxide 35 H Anion Gap 18 BUN 15 Creatinine 0.84 Estim Creat Clear Calc 79.3 Estimated GFR > 60 POC Glucose 486 H* 440 H* Random Glucose 536 H* Calcium 10.7 H Total Bilirubin 0.6 AST 21 ALT 27 Alkaline Phosphatase 90 Total Protein 7.2 Albumin 3.6 Microbiology Microbiology Results: Microbiology 08/03/23 16:38 Sputum - Expectorated Gram Stain - Final 08/03/23 16:38 Sputum - Expectorated Sputum Culture - Final Aspergillus niger 08/02/23 14:20 Blood - Venous Blood Culture - Final No growth after 5 days. 08/02/23 13:36 Blood - Venous Blood Culture - Final No growth after 5 days. Progress Note: A&P Assessment and plan (1) Status post tracheostomy: Status: Acute (2) Status post insertion of percutaneous endoscopic gastrostomy (PEG) tube: Status: Acute (3) Encephalopathy acute: Status: Acute (4) Opioid dependence: Status: Acute (5) Diastolic heart failure: Status: Acute (6) Acute exacerbation of chronic obstructive airways disease: Status: Acute (7) Acute on chronic respiratory failure with hypoxia and hypercapnia: Status: Acute Plan 53 year old female with history of chronic hypoxic and hypercarbic respiratory failure on 2 L nasal cannula and BiPAP at night, CHITO/OHS/asthma/COPD overlap, chronic methadone use, diabetes, recurrent admissions for respiratory failure was admitted to the floor on 08/02/2023 and on 08/05/2023 patient became extremely lethargic, unresponsive while on BiPAP due to worsening hypercapnic respiratory failure needing intubation and ventilator support. Given patient's chronic respiratory failure needing multiple admissions and failed extubation on 08/11/2023 she underwent tracheostomy and PEG tube placement on 08/12/2023 Acute encephalopathy: Secondary to metabolic encephalopathy Off propofol for sedation on as needed Dilaudid for analgesia Acute on chronic respiratory failure: Has significant underlying chronic lung disease with poor reserve now intubated and on ventilator support for acute exacerbation of COPD Currently she is status post tracheostomy tube placement Change her to pressor support trials this morning, even with the support of 18 her tidal volumes would remained in low 200s and respiratory rate more than 30s. She is being seen back to PRVC mode. Not a candidate for weaning from ventilator as of today, we will try again tomorrow PEG tube dislodgement: PEG tube replaced yesterday, continues to have some leak We will hold off on G-tube feedings and medications Atrial fibrillation with RVR: Currently in sinus rhythm with sinus tachycardia Oral diltiazem held as oral medication has been held On metoprolol q.4 hours Heart failure with preserved ejection fraction: Diuresis to keep fluid balance even G-tube metoprolol and diltiazem withheld Hyperglycemia: Blood sugar remained in 200s despite giving Lantus 25 We will start the patient on insulin drip We will monitor blood sugar every hour and change the insulin drip accordingly Lines: Peripheral We will discontinue Adan catheter Prophylaxis: Lovenox, pantoprazole Patient has multiple organ failures including acute encephalopathy, acute on chronic respiratory failure, tachycardia, hyperglycemia, leak through PEG tube. Due to critical care time spent is about 40 minutes on ventilator ventilator settings, trending ventilator settings, management of tachycardia, management of blood sugars with every hourly sugar checks and adjusting the insulin drip accordingly, close monitoring neurological status. Quality Stroke Does the patient have a stroke diagnosis?: No VTE Prior VTE?: No VTE Risk Level:: Medical - moderate - high VTE Device Contraindication: Treatment Not Indicated VTE Drug Contraindication: N/A - Med Ordered
--- NOTE | 2023-08-19 12:23 | PC.NURSE ---
per Dr. Bonner do not use PEG tube for a few days to allow for stoma to heal around tube.
--- NOTE | 2023-08-19 12:53 | P.PNGS_ITS ---
Subjective Subjective Date of Service: 08/19/23 Interval history: status unchanged still vent dependent leakage around PEG site during feeding overnight Physical Exam 2 Vital Signs: Vital Signs: Last Vital Signs Temp 99.9 F 08/19/23 12:00 Pulse 122 H 08/19/23 12:19 Resp 20 08/19/23 12:19 BP 136/81 08/19/23 12:00 Pulse Ox 92 08/19/23 12:00 O2 Del Method Mechanical Ventil ation 08/19/23 12:00 O2 Flow Rate 90 08/05/23 15:52 FiO2 35 08/19/23 12:20 BMI result Body Mass Index 40.5 Const: Other: still on vent via trache Resp: Effort & Inspection: tachypneic Cardio: Rate: tachycardic GI: Other: PEG in place Palpation (GI): Soft to palpation and not firm Objective Data Active Medications Acetaminophen (Acetaminophen 325 Mg Tablet) 975 mg PO Q6H PRN PRN Reason: Pain, Mild (Pain Scale 1-3) Last Admin: 08/15/23 00:21 Dose: 975 mg Documented By: ROWENA Comments: for fever okayed by Antonietta Sabillon DNP Albuterol/Ipratropium (Albuterol/Iprat 2.5/0.5mg 3 Ml Ampul.Neb) 3 ml INHALE RQ4H WHILE AWAKE [facility] Last Admin: 08/19/23 12:18 Dose: 3 ml Documented By: ROMULO Calcitonin Marvell (Calcitonin,Marvell,Synth Nasal 3.7 Ml Bottle) 1 spray NOSTRIL-B DAILY [facility] Last Admin: 08/19/23 08:12 Dose: 1 spray Documented By: SERGE Chlorhexidine Gluconate (Chlorhexidine Gluc Oral Rinse 15 Ml Mouthwash) 15 ml BUCCAL TID [facility] Last Admin: 08/19/23 08:11 Dose: 15 ml Documented By: SERGE Diltiazem HCl (Diltiazem Hcl 60 Mg Tablet) 60 mg PO QID [facility]; Protocol Last Admin: 08/19/23 09:59 Dose: Not Given Documented By: SERGE Non-Admin Reason: PEG tube not in use Famotidine (Famotidine/Pf 20 Mg/2 Ml Vial) 20 mg IVPUSH DAILY [facility] Last Admin: 08/19/23 08:10 Dose: 20 mg Documented By: SERGE Furosemide (Furosemide 40 Mg/4 Ml Vial) 40 mg IVPUSH BID@0900,1800 [facility]; Protocol Last Admin: 08/19/23 08:10 Dose: 40 mg Documented By: SERGE Glucose (Glucose Gel 15 Gm Gel..Gram.) 15 gm PO Q15M PRN; Protocol PRN Reason: per Hypoglycemia Standing Ord. Heparin Sodium (Porcine) (Heparin Sodium,Porcine 5,000 Unit/Ml Vial) 5,000 unit SUBCUT Q8H [facility] Last Admin: 08/19/23 08:11 Dose: 5,000 unit Documented By: SERGE Hydromorphone HCl (Hydromorphone Hcl 0.5 Mg/0.5 Ml Syringe) 0.5 mg IVPUSH Q2H PRN; Protocol PRN Reason: distress Last Admin: 08/19/23 05:45 Dose: 0.5 mg Documented By: NEELAM Dextrose (D10) 250 mls @ 750 mls/hr IV Q15M PRN; Protocol PRN Reason: per Hypoglycemia Standing Ord. Propofol (Diprivan) 1,000 mg in 100 mls @ 0 mls/hr IVCONT .Q0M [facility]; Protocol Last Titration: 08/18/23 11:03 Dose: Infused Documented By: CESAR Insulin Glargine (Insulin Glargine,Hum.Rec.Anlog 100 Unit/Ml 10 Ml Vial) 25 unit SUBCUT DAILY [facility] Last Admin: 08/19/23 10:04 Dose: 25 unit Documented By: SERGE Insulin Human Lispro (Insulin Lispro 100 Unit/Ml 3 Ml Vial) 0 unit SUBCUT Q6H [facility]; Protocol Last Admin: 08/19/23 11:43 Dose: 10 unit Documented By: SERGE Comments: recheck in 2 hr per Lactic Acid (Ammonium Lactate 12 % Lotion 226 Gm Bottle) 1 appl TOPICAL DAILY PRN; Protocol PRN Reason: Dry Skin Lactulose (Lactulose 20 Gm/30 Ml Solution) 20 gm PO TID [facility] Last Admin: 08/19/23 09:59 Dose: Not Given Documented By: SERGE Non-Admin Reason: PEG tube not in use Lidocaine (Lidocaine 4 % Patch Adh..Patch) 1 patch TRANSDERMA DAILY PRN PRN Reason: Pain Metoprolol Tartrate (Metoprolol Tartrate 5 Mg/5 Ml Vial) 5 mg IVPUSH Q6H [facility]; Protocol Last Admin: 08/19/23 10:04 Dose: 5 mg Documented By: SERGE Midazolam HCl (Midazolam Hcl/Pf 2 Mg/2 Ml Vial) 4 mg IVPUSH Q2H PRN PRN Reason: ventilator synchrony Last Admin: 08/19/23 03:34 Dose: 4 mg Documented By: NEELAM Ondansetron HCl (Ondansetron Hcl 4 Mg/2 Ml Vial) 4 mg IVPUSH Q8H PRN PRN Reason: Nausea and Vomiting Last Admin: 08/05/23 04:20 Dose: 4 mg Documented By: MEMO Sodium Chloride (0.9 % Sodium Chloride Flush 3 Ml Syringe) [facility] Last Admin: 08/19/23 08:11 Dose: 3 ml Documented By: SERGE Labs 08/19/23 05:44 08/19/23 05:44 Labs: Laboratory Results - last 24 hr 08/18/23 08/18/23 08/19/23 17:14 23:28 05:41 MCV MCH MCHC RDW Plt Count MPV Immature Gran % (Auto) Neut % (Auto) Lymph % (Auto) [place] % (Auto) Eos % (Auto) Baso % (Auto) Lymph # (Auto) [place] # (Auto) Eos # (Auto) Baso # (Auto) Abs Immat Gran (auto) Absolute Neuts (auto) Absolute Nucleated RBC Nucleated RBC % (auto) Neutrophils % (Manual) Band Neutrophils % Lymphocytes % (Manual) Monocytes % (Manual) Basophils % (Manual) Metamyelocytes % Myelocytes % Promyelocytes % Abs Neuts (Manual) Lymphocytes # (Manual) Monocytes # (Manual) Basophils # (Manual) Metamyelocytes # Myelocytes # Promyelocytes # Nucleated RBCs Platelet Estimate Plt Morphology Comment RBC Morphology Polychromasia VBG pH 7.64 H* VBG pCO2 36 VBG pO2 44 VBG HCO3 39 H VBG O2 Saturation 77.0 VBG Base Excess 17.1 Anion Gap Estim Creat Clear Calc Estimated GFR POC Glucose 398 H* 413 H* Random Glucose Calcium Total Bilirubin AST ALT Alkaline Phosphatase Total Protein Albumin 08/19/23 08/19/2308/18/24 05:44 06:11 11:23 MCV 94.6 MCH 29.3 MCHC 31.0 RDW 17.2 H Plt Count 446 H MPV 10.4 Immature Gran % (Auto) Cancelled Neut % (Auto) Cancelled Lymph % (Auto) Cancelled [place] % (Auto) Cancelled Eos % (Auto) Cancelled Baso % (Auto) Cancelled Lymph # (Auto) Cancelled [place] # (Auto) Cancelled Eos # (Auto) Cancelled Baso # (Auto) Cancelled Abs Immat Gran (auto) Cancelled Absolute Neuts (auto) Cancelled Absolute Nucleated RBC 0.280 H Nucleated RBC % (auto) 1.8 H Neutrophils % (Manual) 69 Band Neutrophils % 12 H Lymphocytes % (Manual) 3 L Monocytes % (Manual) 3 Basophils % (Manual) 1 Metamyelocytes % 5 Myelocytes % 4 Promyelocytes % 3 Abs Neuts (Manual) 12.3 H Lymphocytes # (Manual) 0.5 L Monocytes # (Manual) 0.5 Basophils # (Manual) 0.2 Metamyelocytes # 0.8 Myelocytes # 0.6 Promyelocytes # 0.5 Nucleated RBCs 4 H Platelet Estimate NORMAL Plt Morphology Comment NORMAL RBC Morphology NORMAL Polychromasia 2+ (3-5) VBG pH VBG pCO2 VBG pO2 VBG HCO3 VBG O2 Saturation VBG Base Excess Anion Gap 18 Estim Creat Clear Calc 79.3 Estimated GFR > 60 POC Glucose 486 H* 440 H* Random Glucose 536 H* Calcium 10.7 H Total Bilirubin 0.6 AST 21 ALT 27 Alkaline Phosphatase 90 Total Protein 7.2 Albumin 3.6 Procedures Date of Service Date of Service: 08/19/23 Progress Note: A&P Assessment and plan (1) Status post insertion of percutaneous endoscopic gastrostomy (PEG) tube: Status: Acute Assessment and Plan: PEG inadvertently pulled out yesterday while patient was being cleaned PEG tube replaced with CHINO tube 18Fr leakage around tube overnight likely due to large tract formed by pulling the tube with the inner bolster would hold feeds until tract contracts again around the PEG tube Time Spent With Patient Time: Total time managing care of this patient today ____ minutes. Quality Stroke Does the patient have a stroke diagnosis?: No VTE Prior VTE?: No VTE Risk Level:: Medical - moderate - high VTE Device Contraindication: Treatment Not Indicated VTE Drug Contraindication: N/A - Med Ordered
[2023-08-19 13:19] LABS: Glucose, Whole Blood 405 mg/dL (60-115)
[2023-08-19 14:22] LABS: Glucose, Whole Blood 428 mg/dL (60-115)
[2023-08-19] MEDS: Insulin Regular/NS 100 UNIT/100 ML PLAST..BAG 9 UNIT IVCONT (14:22)
[2023-08-19 15:08] LABS: Glucose, Whole Blood 401 mg/dL (60-115)
[2023-08-19 16:05] LABS: Glucose, Whole Blood 304 mg/dL (60-115)
[2023-08-19 17:04] LABS: Glucose, Whole Blood 272 mg/dL (60-115)
[2023-08-19 18:01] LABS: Glucose, Whole Blood 233 mg/dL (60-115)
[2023-08-19 19:08] LABS: Glucose, Whole Blood 197 mg/dL (60-115)
[2023-08-19 20:12] LABS: Glucose, Whole Blood 164 mg/dL (60-115)
[2023-08-19] MEDS: Insulin Glargine,Hum.rec.anlog 100 UNIT/ML 10 ML VIAL 15 UNIT SUBCUT (20:25)
[2023-08-19 21:02] LABS: Glucose, Whole Blood 150 mg/dL (60-115)
[2023-08-19 22:11] LABS: Glucose, Whole Blood 123 mg/dL (60-115)
[2023-08-19] MEDS: Insulin Regular/NS 100 UNIT/100 ML PLAST..BAG IVCONT (22:14)
[2023-08-20] VITALS (40 sets, daily range): BP systolic 97–155; BP diastolic 54–90; PULSE 101–143; RESP 18–26; TEMP 34.8–37.6; O2SAT 28–96; BMI 38.0
--- NOTE | 2023-08-20 | ECG_ITS ---
Test Reason : starting metadone Blood Pressure : / mmHG Vent. Rate : 128 BPM Atrial Rate : 128 BPM P-R Int : 128 ms QRS Dur : 098 ms QT Int : 310 ms P-R-T Axes : 060 041 056 degrees QTc Int : 452 ms Sinus tachycardia Incomplete right bundle branch block Nonspecific T wave abnormality Abnormal ECG When compared with ECG of 02-AUG-2023 14:00, Minimal criteria for Inferior infarct are no longer Present Referred By: Puneet Castellanos Electronically Signed By:TRISTAN CASTREJON MD
[2023-08-20 00:05] LABS: Glucose, Whole Blood 83 mg/dL (60-115)
[2023-08-20] MEDS: Heparin Sodium,Porcine 5,000 UNIT/ML VIAL 5000 UNIT SUBCUT ×3 (00:31→18:10)
[2023-08-20] MEDS: dilTIAZem HCL 50 MG/10 ML VIAL 10 MG IVPUSH ×2 (01:20→06:22)
[2023-08-20 02:01] LABS: Glucose, Whole Blood 130 mg/dL (60-115)
[2023-08-20] MEDS: HYDROmorphone HCl 0.5 MG/0.5 ML SYRINGE IVPUSH (02:47)
[2023-08-20] MEDS: Metoprolol Tartrate 5 MG/5 ML VIAL IVPUSH ×5 (02:50→18:11)
[2023-08-20 04:01] LABS: Glucose, Whole Blood 199 mg/dL (60-115)
[2023-08-20 05:23] LABS: VBG Base Excess 14.4 mmol/L; VBG HCO3 36 mmol/L (22-26); VBG pCO2 34 mmHg; VBG pH 7.62 (7.32-7.43); VBG pO2 70 mmHg
[2023-08-20 05:31] LABS: Venous Blood Gas Refer to POC result
[2023-08-20] MEDS: Midazolam HCl/PF 2 MG/2 ML VIAL 4 MG IVPUSH (05:36)
[2023-08-20 06:08] LABS: Glucose, Whole Blood 288 mg/dL (60-115)
[2023-08-20] MEDS: Insulin Lispro 100 UNIT/ML 3 ML VIAL SUBCUT ×3 (06:16→18:11)
[2023-08-20 06:31] LABS: Hematocrit 34.3 % (37.0-47.0); Hemoglobin 10.7 g/dl (12.0-16.0); Mean Corpuscular HGB Conc 31.2 g/dl (31.0-35.0); Mean Corpuscular Hemoglobin 29.3 pg (27.0-33.0); Mean Platelet Volume 11.1 fL (9.4-12.3); PLT CLUMP 1; Red Blood Count 3.65 X10*6/uL (4.20-5.50); Red Cell Distribution Width 17.2 % (11.0-16.0)
[2023-08-20] MEDS: dilTIAZem HCL 50 MG/10 ML VIAL 20 MG IVPUSH (06:45)
[2023-08-20 06:51] LABS: NRBC Pct Auto 2.4 /100WBC (0.0-0.2); WBC ABN SCTR FOR CBC 1
[2023-08-20 06:58] LABS: Alanine Aminotransferase 28 U/L (0-31); Albumin Level 3.2 g/dL (3.5-5.0); Alkaline Phosphatase 96 U/L (39-117); Anion Gap 23 (12-20); Aspartate Amino Transferase 34 U/L (5-31); Bilirubin Total 0.6 mg/dL (0.0-1.0); Blood Urea Nitrogen 22 mg/dL (9-16); Calcium 10.1 mg/dL (8.4-10.2); Carbon Dioxide 29 mmol/L (22-29); Chloride 93 mmol/L (96-108); Creatinine Clr Calc Pharmacy 82.4; Estimated Glomerular Filt Rate > 60; Glucose Random 231 mg/dL (60-115); Potassium 4.9 mmol/L (3.3-5.1); Sodium 140 mmol/L (135-145); Total Protein 7.2 g/dL (6.5-8.0)
[2023-08-20] MEDS: dilTIAZem HCL 125 MG in 0.9 % Sodium Chloride 100 ML 10 MG IVCONT (07:22)
[2023-08-20] MEDS: Albuterol/Iprat 2.5/0.5MG 3 ML AMPUL.NEB INHALE ×4 (07:23→19:24)
[2023-08-20 08:02] LABS: Band Neutrophils Percent 7 % (3-5); Lymphocytes Percent Manual 18 % (20-40); Metamyelocytes Percent 3 %; Monocytes Percent Manual 12 % (2-11); Myelocytes Percent 3 %; Neutrophils Percent Manual 53 % (45-73); Nucleated Red Blood Cells 6 /100WBC (0-0); Promyelocytes Percent 4 %
[2023-08-20 08:08] LABS: Platelet Estimate NORMAL (NORMAL); Platelet Morphology Comment NORMAL; Polychromasia 2+ (3-5) /OIF; RBC Morphology NOTED
[2023-08-20 08:11] LABS: Lymphocytes Absolute Manual 3.1 X10*3/uL (1.2-4.9); Metamyelocytes Absolute 0.5 X10*3/uL; Myelocytes Absolute 0.5 X10*/uL; Neutrophils Absolute Manual 10.2 X10*3/uL (2.0-8.3); Platelet Count 387 X10*3/uL (160-400); Promyelocytes Absolute 0.7 X10*3/uL
[2023-08-20] MEDS: Famotidine/PF 20 MG/2 ML VIAL IVPUSH (08:18)
[2023-08-20] MEDS: 0.9 % Sodium Chloride Flush 3 ML SYRINGE IVFLUSH ×2 (08:18→15:30)
[2023-08-20] MEDS: Furosemide 40 MG/4 ML VIAL IVPUSH ×2 (08:18→18:10)
[2023-08-20] MEDS: Insulin Glargine,Hum.rec.anlog 100 UNIT/ML 10 ML VIAL 35 UNIT SUBCUT (08:19)
[2023-08-20] MEDS: Chlorhexidine Gluc Oral Rinse 15 ML MOUTHWASH BUCCAL ×3 (08:19→20:32)
--- NOTE | 2023-08-20 09:15 | P.PNCC_ITS ---
Subjective Subjective Date of Service: 08/20/23 Critical Care Time (minutes): 42 Comment: On ventilator support this morning Episodes of tachycardia to 140s and 150s overnight, currently the heart rate is in 120s Insulin drip titrated off overnight Physical Exam 2 Vital Signs: Vital Signs: Last Vital Signs Temp 98.8 F 08/20/23 08:00 Pulse 129 H 08/20/23 08:00 Resp 25 H 08/20/23 08:00 BP 128/74 08/20/23 08:18 Pulse Ox 89 L 08/20/23 08:00 O2 Del Method Mechanical Ventil ation 08/20/23 08:00 O2 Flow Rate 90 08/05/23 15:52 FiO2 35 08/20/23 08:00 BMI result Body Mass Index 38.0 General: acute distress, ill appearing and tired appearing Nutritional Appearance: well nourished and overweight Eyes: appearance normal, both eyes and all related structures; Alignment and Position: alignment normal and position normal Neck: No lymphadenopathy, no thyromegaly Resp: bilateral air entry equal, occasional added sounds present Cardio: Regular rate, regular rhythm; Heart sounds: S1 normal heart sound present and S2 normal heart sound present GI: soft, nontender, no guarding, no hepatosplenomegaly : bladder normal to inspection, bladder normal to palpation, no renal angle tenderness Skin: no rashes or lesions noted and elasticity normal Neuro: Mental status better, following some commands Objective Data Labs 08/20/23 05:09 08/20/23 05:09 Labs: Laboratory Results - last 24 hr 08/19/23 08/19/23 08/19/23 11:23 13:16 14:18 WBC RBC Hgb Hct MCV MCH MCHC RDW Plt Count MPV Immature Gran % (Auto) Neut % (Auto) Lymph % (Auto) [place] % (Auto) Eos % (Auto) Baso % (Auto) Lymph # (Auto) [place] # (Auto) Eos # (Auto) Baso # (Auto) Abs Immat Gran (auto) Absolute Neuts (auto) Absolute Nucleated RBC Nucleated RBC % (auto) Neutrophils % (Manual) Band Neutrophils % Lymphocytes % (Manual) Monocytes % (Manual) Metamyelocytes % Myelocytes % Promyelocytes % Abs Neuts (Manual) Lymphocytes # (Manual) Monocytes # (Manual) Metamyelocytes # Myelocytes # Promyelocytes # Nucleated RBCs Platelet Estimate Plt Morphology Comment RBC Morphology Polychromasia VBG pH VBG pCO2 VBG pO2 VBG HCO3 VBG O2 Saturation VBG Base Excess Sodium Potassium Chloride Carbon Dioxide Anion Gap BUN Creatinine Estim Creat Clear Calc Estimated GFR POC Glucose 440 H* 405 H* 428 H* Random Glucose Calcium Total Bilirubin AST ALT Alkaline Phosphatase Total Protein Albumin 08/19/23 08/19/23 08/19/23 15:03 16:02 17:01 WBC RBC Hgb Hct MCV MCH MCHC RDW Plt Count MPV Immature Gran % (Auto) Neut % (Auto) Lymph % (Auto) [place] % (Auto) Eos % (Auto) Baso % (Auto) Lymph # (Auto) [place] # (Auto) Eos # (Auto) Baso # (Auto) Abs Immat Gran (auto) Absolute Neuts (auto) Absolute Nucleated RBC Nucleated RBC % (auto) Neutrophils % (Manual) Band Neutrophils % Lymphocytes % (Manual) Monocytes % (Manual) Metamyelocytes % Myelocytes % Promyelocytes % Abs Neuts (Manual) Lymphocytes # (Manual) Monocytes # (Manual) Metamyelocytes # Myelocytes # Promyelocytes # Nucleated RBCs Platelet Estimate Plt Morphology Comment RBC Morphology Polychromasia VBG pH VBG pCO2 VBG pO2 VBG HCO3 VBG O2 Saturation VBG Base Excess Sodium Potassium Chloride Carbon Dioxide Anion Gap BUN Creatinine Estim Creat Clear Calc Estimated GFR POC Glucose 401 H* 304 H 272 H Random Glucose Calcium Total Bilirubin AST ALT Alkaline Phosphatase Total Protein Albumin 08/19/23 08/19/23 08/19/23 17:57 19:05 20:09 WBC RBC Hgb Hct MCV MCH MCHC RDW Plt Count MPV Immature Gran % (Auto) Neut % (Auto) Lymph % (Auto) [place] % (Auto) Eos % (Auto) Baso % (Auto) Lymph # (Auto) [place] # (Auto) Eos # (Auto) Baso # (Auto) Abs Immat Gran (auto) Absolute Neuts (auto) Absolute Nucleated RBC Nucleated RBC % (auto) Neutrophils % (Manual) Band Neutrophils % Lymphocytes % (Manual) Monocytes % (Manual) Metamyelocytes % Myelocytes % Promyelocytes % Abs Neuts (Manual) Lymphocytes # (Manual) Monocytes # (Manual) Metamyelocytes # Myelocytes # Promyelocytes # Nucleated RBCs Platelet Estimate Plt Morphology Comment RBC Morphology Polychromasia VBG pH VBG pCO2 VBG pO2 VBG HCO3 VBG O2 Saturation VBG Base Excess Sodium Potassium Chloride Carbon Dioxide Anion Gap BUN Creatinine Estim Creat Clear Calc Estimated GFR POC Glucose 233 H 197 H 164 H Random Glucose Calcium Total Bilirubin AST ALT Alkaline Phosphatase Total Protein Albumin 08/19/23 08/19/23 08/20/23 20:58 22:07 00:02 WBC RBC Hgb Hct MCV MCH MCHC RDW Plt Count MPV Immature Gran % (Auto) Neut % (Auto) Lymph % (Auto) [place] % (Auto) Eos % (Auto) Baso % (Auto) Lymph # (Auto) [place] # (Auto) Eos # (Auto) Baso # (Auto) Abs Immat Gran (auto) Absolute Neuts (auto) Absolute Nucleated RBC Nucleated RBC % (auto) Neutrophils % (Manual) Band Neutrophils % Lymphocytes % (Manual) Monocytes % (Manual) Metamyelocytes % Myelocytes % Promyelocytes % Abs Neuts (Manual) Lymphocytes # (Manual) Monocytes # (Manual) Metamyelocytes # Myelocytes # Promyelocytes # Nucleated RBCs Platelet Estimate Plt Morphology Comment RBC Morphology Polychromasia VBG pH VBG pCO2 VBG pO2 VBG HCO3 VBG O2 Saturation VBG Base Excess Sodium Potassium Chloride Carbon Dioxide Anion Gap BUN Creatinine Estim Creat Clear Calc Estimated GFR POC Glucose 150 H 123 H 83 Random Glucose Calcium Total Bilirubin AST ALT Alkaline Phosphatase Total Protein Albumin 08/20/23 08/20/23 08/20/23 01:57 03:57 05:09 WBC 17.0 H RBC 3.65 L Hgb 10.7 L Hct 34.3 L MCV 94.0 MCH 29.3 MCHC 31.2 RDW 17.2 H Plt Count 387 MPV 11.1 Immature Gran % (Auto) Cancelled Neut % (Auto) Cancelled Lymph % (Auto) Cancelled [place] % (Auto) Cancelled Eos % (Auto) Cancelled Baso % (Auto) Cancelled Lymph # (Auto) Cancelled [place] # (Auto) Cancelled Eos # (Auto) Cancelled Baso # (Auto) Cancelled Abs Immat Gran (auto) Cancelled Absolute Neuts (auto) Cancelled Absolute Nucleated RBC 0.400 H Nucleated RBC % (auto) 2.4 H Neutrophils % (Manual) 53 Band Neutrophils % 7 H Lymphocytes % (Manual) 18 L Monocytes % (Manual) 12 H Metamyelocytes % 3 Myelocytes % 3 Promyelocytes % 4 Abs Neuts (Manual) 10.2 H Lymphocytes # (Manual) 3.1 Monocytes # (Manual) 2.0 H Metamyelocytes # 0.5 Myelocytes # 0.5 Promyelocytes # 0.7 Nucleated RBCs 6 H Platelet Estimate NORMAL Plt Morphology Comment NORMAL RBC Morphology NOTED Polychromasia 2+ (3-5) VBG pH VBG pCO2 VBG pO2 VBG HCO3 VBG O2 Saturation VBG Base Excess Sodium 140 Potassium 4.9 Chloride 93 L Carbon Dioxide 29 Anion Gap 23 H BUN 22 H Creatinine 0.78 Estim Creat Clear Calc 82.4 Estimated GFR > 60 POC Glucose 130 H 199 H Random Glucose 231 H Calcium 10.1 Total Bilirubin 0.6 AST 34 H ALT 28 Alkaline Phosphatase 96 Total Protein 7.2 Albumin 3.2 L 08/20/23 08/20/23 05:11 06:05 WBC RBC Hgb Hct MCV MCH MCHC RDW Plt Count MPV Immature Gran % (Auto) Neut % (Auto) Lymph % (Auto) [place] % (Auto) Eos % (Auto) Baso % (Auto) Lymph # (Auto) [place] # (Auto) Eos # (Auto) Baso # (Auto) Abs Immat Gran (auto) Absolute Neuts (auto) Absolute Nucleated RBC Nucleated RBC % (auto) Neutrophils % (Manual) Band Neutrophils % Lymphocytes % (Manual) Monocytes % (Manual) Metamyelocytes % Myelocytes % Promyelocytes % Abs Neuts (Manual) Lymphocytes # (Manual) Monocytes # (Manual) Metamyelocytes # Myelocytes # Promyelocytes # Nucleated RBCs Platelet Estimate Plt Morphology Comment RBC Morphology Polychromasia VBG pH 7.62 H* VBG pCO2 34 VBG pO2 70 VBG HCO3 36 H VBG O2 Saturation 95.0 VBG Base Excess 14.4 Sodium Potassium Chloride Carbon Dioxide Anion Gap BUN Creatinine Estim Creat Clear Calc Estimated GFR POC Glucose 288 H Random Glucose Calcium Total Bilirubin AST ALT Alkaline Phosphatase Total Protein Albumin Microbiology Microbiology Results: Microbiology 08/03/23 16:38 Sputum - Expectorated Gram Stain - Final 08/03/23 16:38 Sputum - Expectorated Sputum Culture - Final Aspergillus niger 08/02/23 14:20 Blood - Venous Blood Culture - Final No growth after 5 days. 08/02/23 13:36 Blood - Venous Blood Culture - Final No growth after 5 days. Progress Note: A&P Assessment and plan (1) Acute on chronic respiratory failure with hypoxia and hypercapnia: Status: Acute (2) Acute exacerbation of chronic obstructive airways disease: Status: Acute (3) Intensive care (ICU) myopathy: Status: Acute (4) Encephalopathy acute: Status: Acute (5) Status post insertion of percutaneous endoscopic gastrostomy (PEG) tube: Status: Acute (6) Status post tracheostomy: Status: Acute Plan 53 year old female with history of chronic hypoxic and hypercarbic respiratory failure on 2 L nasal cannula and BiPAP at night, CHITO/OHS/asthma/COPD overlap, chronic methadone use, diabetes, recurrent admissions for respiratory failure was admitted to the floor on 08/02/2023 and on 08/05/2023 patient became extremely lethargic, unresponsive while on BiPAP due to worsening hypercapnic respiratory failure needing intubation and ventilator support. Given patient's chronic respiratory failure needing multiple admissions and failed extubation on 08/11/2023 she underwent tracheostomy and PEG tube placement on 08/12/2023 Acute encephalopathy: Secondary to metabolic encephalopathy Off propofol for sedation on as needed Dilaudid for analgesia, more alert and answering some questions today will restart methadone 10 mg b.i.d. and slowly uptitrate. Her home dose of methadone 50 mg daily and she is off of it for few days. We will get an EKG to look for QT interval prior to starting methadone Acute on chronic respiratory failure: Has significant underlying chronic lung disease with poor reserve now intubated and on ventilator support for acute exacerbation of COPD Currently she is status post tracheostomy tube placement slight increase in oxygen requirement to 40%, will try on pressure support again today PEG tube dislodgement: PEG tube replaced yesterday, continues to have some leak We will hold off on G-tube feedings Atrial fibrillation with RVR: Currently in sinus rhythm with sinus tachycardia Oral diltiazem held as oral medication has been held On metoprolol q.4 hours Heart failure with preserved ejection fraction: Diuresis to keep fluid balance even G-tube metoprolol and diltiazem withheld Hyperglycemia: Blood sugar remained in 200s despite giving Lantus 35, will add lantus 15U in night if sugars are high insulin drip stopped at midnight We will monitor blood sugar every hour and change the insulin drip accordingly Lines: Peripheral off of Adan catheter Prophylaxis: Lovenox, pantoprazole Patient has multiple organ failures including acute encephalopathy, acute on chronic respiratory failure, tachycardia, hyperglycemia, leak through PEG tube. Due to critical care time spent is about 40 minutes on ventilator ventilator settings, changing ventilator settings, management of tachycardias. Quality Stroke Does the patient have a stroke diagnosis?: No VTE Prior VTE?: No VTE Risk Level:: Medical - moderate - high VTE Device Contraindication: Treatment Not Indicated VTE Drug Contraindication: N/A - Med Ordered
--- NOTE | 2023-08-20 10:46 | MHC.CLN ---
F/U DISCUSSED AT ROUNDS WITH TF ON HOLD R/T LEAKING AROUND STOMA PER DR DUMONT DO NOT USE PEG UNTIL HEALED AROUND STOMA PT IS NPO DAY 3-MAY NEED TPN/PPN IF PEG CAN NOT BE USED-MD AWARE NOTED WOUND STAGED DTI COCCYX, STAGE 2 L & R BUTTOCKS PT WITH INCREASED NUTRITION RISK R/T PRESSURE INJURIES CONSULT RD IF TPN NEEDED FOLLOWING WITH TEAM
[2023-08-20] MEDS: methADONE HCl 10 MG TABLET PO ×2 (11:04→20:32)
[2023-08-20] MEDS: Lactulose 20 GM/30 ML SOLUTION PO ×3 (11:04→20:32)
[2023-08-20] MEDS: Calcitonin,Salmon,Synth Nasal 3.7 ML BOTTLE 1 SPRAY NOSTRIL-B (11:05)
[2023-08-20 12:13] LABS: Glucose, Whole Blood 308 mg/dL (60-115)
--- NOTE | 2023-08-20 12:34 | PM.PNGS ---
Subjective Subjective Date of Service: 08/22/23 Interval history: remians on vent no events reported seems more awake Physical Exam Vital Signs: Vital Signs: Last Vital Signs Temp 97.8 F 08/20/23 12:00 Pulse 116 H 08/20/23 12:00 Resp 18 08/20/23 12:00 BP 122/75 08/20/23 12:00 Pulse Ox 28 L 08/20/23 12:00 O2 Del Method Mechanical Ventil ation 08/20/23 11:00 O2 Flow Rate 90 08/05/23 15:52 FiO2 40 08/20/23 12:00 BMI result Body Mass Index 38.0 Const: Other: some SOB Resp: Other: some shortness of breath GI: Other: PEG in place, site seems dry Palpation (GI): Soft to palpation, not firm and no guarding Objective Data Active Medications Acetaminophen (Acetaminophen 325 Mg Tablet) 975 mg PO Q6H PRN PRN Reason: Pain, Mild (Pain Scale 1-3) Last Admin: 08/15/23 00:21 Dose: 975 mg Documented By: ROWENA Comments: for fever okayed by Antonietta Sabillon DNP Albuterol/Ipratropium (Albuterol/Iprat 2.5/0.5mg 3 Ml Ampul.Neb) 3 ml INHALE RQ4H WHILE AWAKE PENDING SALE TO [facility] Last Admin: 08/20/23 11:43 Dose: 3 ml Documented By: BI Calcitonin Purdys (Calcitonin,Purdys,Synth Nasal 3.7 Ml Bottle) 1 spray NOSTRIL-B DAILY PENDING SALE TO [facility] Last Admin: 08/20/23 11:05 Dose: 1 spray Documented By: SERGE Chlorhexidine Gluconate (Chlorhexidine Gluc Oral Rinse 15 Ml Mouthwash) 15 ml BUCCAL TID PENDING SALE TO [facility] Last Admin: 08/20/23 08:19 Dose: 15 ml Documented By: SERGE Diltiazem HCl (Diltiazem Hcl 60 Mg Tablet) 60 mg PO QID PENDING SALE TO [facility]; Protocol Last Admin: 08/20/23 12:23 Dose: Not Given Documented By: SERGE Non-Admin Reason: diltiazem gtt running Famotidine (Famotidine/Pf 20 Mg/2 Ml Vial) 20 mg IVPUSH DAILY PENDING SALE TO [facility] Last Admin: 08/20/23 08:18 Dose: 20 mg Documented By: SERGE Furosemide (Furosemide 40 Mg/4 Ml Vial) 40 mg IVPUSH BID@0900,1800 PENDING SALE TO [facility]; Protocol Last Admin: 08/20/23 08:18 Dose: 40 mg Documented By: SERGE Glucose (Glucose Gel 15 Gm Gel..Gram.) 15 gm PO Q15M PRN; Protocol PRN Reason: per Hypoglycemia Standing Ord. Heparin Sodium (Porcine) (Heparin Sodium,Porcine 5,000 Unit/Ml Vial) 5,000 unit SUBCUT Q8H ANA Last Admin: 08/20/23 08:18 Dose: 5,000 unit Documented By: SERGE Hydromorphone HCl (Hydromorphone Hcl 0.5 Mg/0.5 Ml Syringe) 0.5 mg IVPUSH Q2H PRN; Protocol PRN Reason: distress Last Admin: 08/20/23 02:47 Dose: 0.5 mg Documented By: ROWENA Dextrose (D10) 250 mls @ 750 mls/hr IV Q15M PRN; Protocol PRN Reason: per Hypoglycemia Standing Ord. Propofol (Diprivan) 1,000 mg in 100 mls @ 0 mls/hr IVCONT .Q0M ANA; Protocol Last Titration: 08/18/23 11:03 Dose: Infused Documented By: CESAR Insulin Human Regular (Myxredlin) 100 unit in 100 mls @ 9 mls/hr IVCONT .Q11H7M ANA; Protocol Last Admin: 08/20/23 12:13 Dose: Not Given Documented By: SERGE Non-Admin Reason: Physician Held Med Dextrose (D10) 250 mls @ 750 mls/hr IV Q30M PRN PRN Reason: BG <70 Diltiazem HCl 125 mg/ Sodium (Chloride) 125 mls @ 0 mls/hr IVCONT .Q0M ANA; Protocol Last Titration: 08/20/23 10:18 Dose: 15 mg/hr, 15 mls/hr Documented By: SERGE Insulin Glargine (Insulin Glargine,Hum.Rec.Anlog 100 Unit/Ml 10 Ml Vial) 35 unit SUBCUT DAILY PENDING SALE TO [facility] Last Admin: 08/20/23 08:19 Dose: 35 unit Documented By: SERGE Insulin Human Lispro (Insulin Lispro 100 Unit/Ml 3 Ml Vial) 0 unit SUBCUT Q6H PENDING SALE TO [facility]; Protocol Last Admin: 08/20/23 12:25 Dose: 8 unit Documented By: SERGE Lactic Acid (Ammonium Lactate 12 % Lotion 226 Gm Bottle) 1 appl TOPICAL DAILY PRN; Protocol PRN Reason: Dry Skin Lactulose (Lactulose 20 Gm/30 Ml Solution) 20 gm PO TID PENDING SALE TO [facility] Last Admin: 08/20/23 11:04 Dose: 20 gm Documented By: SERGE Lidocaine (Lidocaine 4 % Patch Adh..Patch) 1 patch TRANSDERMA DAILY PRN PRN Reason: Pain Methadone HCl (Methadone Hcl 10 Mg Tablet) 10 mg PO BID PENDING SALE TO [facility] Last Admin: 08/20/23 11:04 Dose: 10 mg Documented By: SERGE Metoprolol Tartrate (Metoprolol Tartrate 5 Mg/5 Ml Vial) 5 mg IVPUSH Q4H PENDING SALE TO [facility]; Protocol Last Admin: 08/20/23 11:04 Dose: 5 mg Documented By: SERGE Midazolam HCl (Midazolam Hcl/Pf 2 Mg/2 Ml Vial) 4 mg IVPUSH Q2H PRN PRN Reason: ventilator synchrony Last Admin: 08/20/23 05:36 Dose: 4 mg Documented By: ROWENA Ondansetron HCl (Ondansetron Hcl 4 Mg/2 Ml Vial) 4 mg IVPUSH Q8H PRN PRN Reason: Nausea and Vomiting Last Admin: 08/05/23 04:20 Dose: 4 mg Documented By: BRITTNEY-CHEMO Sodium Chloride (0.9 % Sodium Chloride Flush 3 Ml Syringe) 3 ml IVFLUSH QSHIFT PENDING SALE TO [facility] Last Admin: 08/20/23 08:18 Dose: 3 ml Documented By: SERGE Labs 08/22/23 05:10 08/22/23 05:10 Labs: Laboratory Results - last 24 hr 08/19/23 08/19/23 08/19/23 13:16 14:18 15:03 MCV MCH MCHC RDW Plt Count MPV Immature Gran % (Auto) Neut % (Auto) Lymph % (Auto) [place] % (Auto) Eos % (Auto) Baso % (Auto) Lymph # (Auto) [place] # (Auto) Eos # (Auto) Baso # (Auto) Abs Immat Gran (auto) Absolute Neuts (auto) Absolute Nucleated RBC Nucleated RBC % (auto) Neutrophils % (Manual) Band Neutrophils % Lymphocytes % (Manual) Monocytes % (Manual) Metamyelocytes % Myelocytes % Promyelocytes % Abs Neuts (Manual) Lymphocytes # (Manual) Monocytes # (Manual) Metamyelocytes # Myelocytes # Promyelocytes # Nucleated RBCs Platelet Estimate Plt Morphology Comment RBC Morphology Polychromasia VBG pH VBG pCO2 VBG pO2 VBG HCO3 VBG O2 Saturation VBG Base Excess Anion Gap Estim Creat Clear Calc Estimated GFR POC Glucose 405 H* 428 H* 401 H* Random Glucose Calcium Total Bilirubin AST ALT Alkaline Phosphatase Total Protein Albumin 08/19/23 08/19/23 08/19/23 16:02 17:01 17:57 MCV MCH MCHC RDW Plt Count MPV Immature Gran % (Auto) Neut % (Auto) Lymph % (Auto) [place] % (Auto) Eos % (Auto) Baso % (Auto) Lymph # (Auto) [place] # (Auto) Eos # (Auto) Baso # (Auto) Abs Immat Gran (auto) Absolute Neuts (auto) Absolute Nucleated RBC Nucleated RBC % (auto) Neutrophils % (Manual) Band Neutrophils % Lymphocytes % (Manual) Monocytes % (Manual) Metamyelocytes % Myelocytes % Promyelocytes % Abs Neuts (Manual) Lymphocytes # (Manual) Monocytes # (Manual) Metamyelocytes # Myelocytes # Promyelocytes # Nucleated RBCs Platelet Estimate Plt Morphology Comment RBC Morphology Polychromasia VBG pH VBG pCO2 VBG pO2 VBG HCO3 VBG O2 Saturation VBG Base Excess Anion Gap Estim Creat Clear Calc Estimated GFR POC Glucose 304 H 272 H 233 H Random Glucose Calcium Total Bilirubin AST ALT Alkaline Phosphatase Total Protein Albumin 08/19/23 08/19/23 08/19/23 19:05 20:09 20:58 MCV MCH MCHC RDW Plt Count MPV Immature Gran % (Auto) Neut % (Auto) Lymph % (Auto) [place] % (Auto) Eos % (Auto) Baso % (Auto) Lymph # (Auto) [place] # (Auto) Eos # (Auto) Baso # (Auto) Abs Immat Gran (auto) Absolute Neuts (auto) Absolute Nucleated RBC Nucleated RBC % (auto) Neutrophils % (Manual) Band Neutrophils % Lymphocytes % (Manual) Monocytes % (Manual) Metamyelocytes % Myelocytes % Promyelocytes % Abs Neuts (Manual) Lymphocytes # (Manual) Monocytes # (Manual) Metamyelocytes # Myelocytes # Promyelocytes # Nucleated RBCs Platelet Estimate Plt Morphology Comment RBC Morphology Polychromasia VBG pH VBG pCO2 VBG pO2 VBG HCO3 VBG O2 Saturation VBG Base Excess Anion Gap Estim Creat Clear Calc Estimated GFR POC Glucose 197 H 164 H 150 H Random Glucose Calcium Total Bilirubin AST ALT Alkaline Phosphatase Total Protein Albumin 08/19/23 08/20/23 08/20/23 22:07 00:02 01:57 MCV MCH MCHC RDW Plt Count MPV Immature Gran % (Auto) Neut % (Auto) Lymph % (Auto) [place] % (Auto) Eos % (Auto) Baso % (Auto) Lymph # (Auto) [place] # (Auto) Eos # (Auto) Baso # (Auto) Abs Immat Gran (auto) Absolute Neuts (auto) Absolute Nucleated RBC Nucleated RBC % (auto) Neutrophils % (Manual) Band Neutrophils % Lymphocytes % (Manual) Monocytes % (Manual) Metamyelocytes % Myelocytes % Promyelocytes % Abs Neuts (Manual) Lymphocytes # (Manual) Monocytes # (Manual) Metamyelocytes # Myelocytes # Promyelocytes # Nucleated RBCs Platelet Estimate Plt Morphology Comment RBC Morphology Polychromasia VBG pH VBG pCO2 VBG pO2 VBG HCO3 VBG O2 Saturation VBG Base Excess Anion Gap Estim Creat Clear Calc Estimated GFR POC Glucose 123 H 83 130 H Random Glucose Calcium Total Bilirubin AST ALT Alkaline Phosphatase Total Protein Albumin 08/20/23 08/20/23 08/20/23 03:57 05:09 05:11 MCV 94.0 MCH 29.3 MCHC 31.2 RDW 17.2 H Plt Count 387 MPV 11.1 Immature Gran % (Auto) Cancelled Neut % (Auto) Cancelled Lymph % (Auto) Cancelled [place] % (Auto) Cancelled Eos % (Auto) Cancelled Baso % (Auto) Cancelled Lymph # (Auto) Cancelled [place] # (Auto) Cancelled Eos # (Auto) Cancelled Baso # (Auto) Cancelled Abs Immat Gran (auto) Cancelled Absolute Neuts (auto) Cancelled Absolute Nucleated RBC 0.400 H Nucleated RBC % (auto) 2.4 H Neutrophils % (Manual) 53 Band Neutrophils % 7 H Lymphocytes % (Manual) 18 L Monocytes % (Manual) 12 H Metamyelocytes % 3 Myelocytes % 3 Promyelocytes % 4 Abs Neuts (Manual) 10.2 H Lymphocytes # (Manual) 3.1 Monocytes # (Manual) 2.0 H Metamyelocytes # 0.5 Myelocytes # 0.5 Promyelocytes # 0.7 Nucleated RBCs 6 H Platelet Estimate NORMAL Plt Morphology Comment NORMAL RBC Morphology NOTED Polychromasia 2+ (3-5) VBG pH 7.62 H* VBG pCO2 34 VBG pO2 70 VBG HCO3 36 H VBG O2 Saturation 95.0 VBG Base Excess 14.4 Anion Gap 23 H Estim Creat Clear Calc 82.4 Estimated GFR > 60 POC Glucose 199 H Random Glucose 231 H Calcium 10.1 Total Bilirubin 0.6 AST 34 H ALT 28 Alkaline Phosphatase 96 Total Protein 7.2 Albumin 3.2 L 08/20/23 08/20/23 06:05 12:09 MCV MCH MCHC RDW Plt Count MPV Immature Gran % (Auto) Neut % (Auto) Lymph % (Auto) [place] % (Auto) Eos % (Auto) Baso % (Auto) Lymph # (Auto) [place] # (Auto) Eos # (Auto) Baso # (Auto) Abs Immat Gran (auto) Absolute Neuts (auto) Absolute Nucleated RBC Nucleated RBC % (auto) Neutrophils % (Manual) Band Neutrophils % Lymphocytes % (Manual) Monocytes % (Manual) Metamyelocytes % Myelocytes % Promyelocytes % Abs Neuts (Manual) Lymphocytes # (Manual) Monocytes # (Manual) Metamyelocytes # Myelocytes # Promyelocytes # Nucleated RBCs Platelet Estimate Plt Morphology Comment RBC Morphology Polychromasia VBG pH VBG pCO2 VBG pO2 VBG HCO3 VBG O2 Saturation VBG Base Excess Anion Gap Estim Creat Clear Calc Estimated GFR POC Glucose 288 H 308 H Random Glucose Calcium Total Bilirubin AST ALT Alkaline Phosphatase Total Protein Albumin Microbiology Microbiology Results: Microbiology 08/19/23 09:51 Blood Culture - Preliminary Blood - Venous No growth after 24 hours. 08/19/23 09:51 Blood Culture - Preliminary Blood - Venous No growth after 24 hours. Procedures Date of Service Date of Service: 08/22/23 Progress Note: A&P Assessment and plan (1) Leaking PEG tube: Status: Acute Assessment and Plan: original PEG inadvertently pulled out last Friday replaced with CHINO tube some leakage yesterday - likely because of larger tract created when tube was pulled with bolster in place allow time for tract to contract around PEG ok to retry feeds on low dose Time Spent With Patient Time: Total time managing care of this patient today ____ minutes. Quality Stroke Does the patient have a stroke diagnosis?: No VTE Prior VTE?: No VTE Risk Level:: Medical - moderate - high VTE Device Contraindication: Treatment Not Indicated VTE Drug Contraindication: N/A - Med Ordered
--- NOTE | 2023-08-20 13:58 | HO.PICC ---
PICC Line Insertion [facility] Diagnosis: Acute Resp Failure Indication: difficult iv access Pertinent Labs: Reviewed. Per Dr Castellanos the PICC catheter was trimmed to 20cm as pt has 24 hr blood cultures resulted as negative but the 48hr still pending but pt would greatly benefit from a double lumen catheter Technique: Following informed consent including risks, benefits and alternatives and using sterile technique including cap and mask, sterile gown, glove and drape, the left arm was prepped and draped in the usual sterile fashion of full barrier technique with CHG. Following completion of [place] Protocol the skin and soft tissues were anesthetized with 1% Lidocaine plain. Using ultrasound guidance, left brachial vein access was obtained. Over an 0.018 wire through peel-away sheath, a double lumen PASV PICC line was positioned. Catheter length is 20cm internal length, 0cm external length, for a total trimmed length of 20cm. The procedure was performed in rm 262. Tip verification was performed by Rhiannon Hdz with Sherlock 3CG. Tip located in SVC. Ultrasound was used to document vein patency and for needle entry. A formal ultrasound picture and cardiac rhythm strip was recorded. [facility] [facility] has released the line for use and it is currently dressed with a StatLock, Tegaderm, and CHG disc. Verification has been performed for blood return and line patency. Arm Circumference: 33cm Equipment: [employer] SOLO cathater Catheter Type: 5fr double lumen PASV PICC catheter Lot #: [id number]
[2023-08-20] MEDS: dilTIAZem HCL 125 MG in 0.9 % Sodium Chloride 100 ML 15 MG IVCONT (15:41)
--- NOTE | 2023-08-20 15:54 | MHC.CM.PN ---
Patient remains in ICU trached + peg 08/18/23. Cardizem gtt continues for tachycardia. Insulin Gtt stopped. Lantus+ Lispo ss planned. DP to [facility] via ALS when she is medically cleared. CM will follow.
[2023-08-20 18:02] LABS: Glucose, Whole Blood 306 mg/dL (60-115)
[2023-08-20] MEDS: Insulin Glargine,Hum.rec.anlog 100 UNIT/ML 10 ML VIAL 10 UNIT SUBCUT (21:12)
[2023-08-20] MEDS: Metoprolol Tartrate 25 MG TABLET PO (21:12)
[2023-08-20 23:49] LABS: Glucose, Whole Blood 297 mg/dL (60-115)
[2023-08-21] VITALS (37 sets, daily range): BP systolic 94–135; BP diastolic 53–92; PULSE 18–115; RESP 15–21; TEMP 34.5–38.1; O2SAT 89–99; BMI 38.1
--- NOTE | 2023-08-21 | ECG_ITS ---
Test Reason : chest pain Blood Pressure : / mmHG Vent. Rate : 108 BPM Atrial Rate : 108 BPM P-R Int : 134 ms QRS Dur : 112 ms QT Int : 362 ms P-R-T Axes : 065 043 061 degrees QTc Int : 485 ms Sinus tachycardia Incomplete right bundle branch block T wave abnormality, consider anterior ischemia Abnormal ECG When compared with ECG of 20-AUG-2023 09:42, No significant change was found Referred By: Kamaljit Chacon Electronically Signed By:TRISTAN CASTREJON MD
[2023-08-21] MEDS: Heparin Sodium,Porcine 5,000 UNIT/ML VIAL 5000 UNIT SUBCUT ×3 (00:27→17:36)
[2023-08-21] MEDS: Insulin Lispro 100 UNIT/ML 3 ML VIAL SUBCUT ×5 (00:27→23:51)
[2023-08-21] MEDS: 0.9 % Sodium Chloride Flush 3 ML SYRINGE IVFLUSH ×4 (00:40→23:55)
[2023-08-21] MEDS: Metoprolol Tartrate 25 MG TABLET PO ×4 (02:53→20:15)
[2023-08-21] MEDS: dilTIAZem HCL 125 MG in 0.9 % Sodium Chloride 100 ML 10 MG IVCONT (02:55)
[2023-08-21 03:10] LABS: Glucose, Whole Blood 249 mg/dL (60-115)
[2023-08-21 05:58] LABS: VBG Base Excess 17.5 mmol/L; VBG HCO3 39 mmol/L (22-26); VBG pCO2 38 mmHg; VBG pH 7.63 (7.32-7.43); VBG pO2 86 mmHg
[2023-08-21 06:03] LABS: Venous Blood Gas Refer to POC result
[2023-08-21 06:04] LABS: Glucose, Whole Blood 295 mg/dL (60-115)
[2023-08-21 06:07] LABS: Hematocrit 34.9 % (37.0-47.0); Hemoglobin 10.5 g/dl (12.0-16.0); Mean Corpuscular HGB Conc 30.1 g/dl (31.0-35.0); Mean Corpuscular Hemoglobin 28.8 pg (27.0-33.0); Mean Corpuscular Volume 95.9 fL (80.0-98.0); Mean Platelet Volume 9.8 fL (9.4-12.3); Platelet Count 375 X10*3/uL (160-400); Red Blood Count 3.64 X10*6/uL (4.20-5.50); Red Cell Distribution Width 17.3 % (11.0-16.0)
[2023-08-21 06:08] LABS: NRBC Pct Auto 2.4 /100WBC (0.0-0.2); WBC ABN SCTR FOR CBC 1; White Blood Count 13.7 X10*3/uL (4.8-10.8)
[2023-08-21 06:25] LABS: Alanine Aminotransferase 24 U/L (0-31); Albumin Level 3.1 g/dL (3.5-5.0); Alkaline Phosphatase 86 U/L (39-117); Anion Gap 20 (12-20); Aspartate Amino Transferase 20 U/L (5-31); Bilirubin Total 0.6 mg/dL (0.0-1.0); Blood Urea Nitrogen 31 mg/dL (9-16); Calcium 9.8 mg/dL (8.4-10.2); Carbon Dioxide 32 mmol/L (22-29); Chloride 93 mmol/L (96-108); Creatinine Clr Calc Pharmacy 105.6; Estimated Glomerular Filt Rate > 60; Glucose Random 303 mg/dL (60-115); Potassium 4.2 mmol/L (3.3-5.1); Sodium 141 mmol/L (135-145); Total Protein 6.9 g/dL (6.5-8.0)
[2023-08-21 06:40] LABS: Band Neutrophils Percent 13 % (3-5); Lymphocytes Absolute Manual 1.9 X10*3/uL (1.2-4.9); Lymphocytes Percent Manual 14 % (20-40); Metamyelocytes Absolute 0.3 X10*3/uL; Metamyelocytes Percent 2 %; Monocytes Absolute Manual 1.6 X10*3/uL (0.1-1.2); Monocytes Percent Manual 12 % (2-11); Myelocytes Absolute 0.3 X10*/uL; Myelocytes Percent 2 %; Neutrophils Absolute Manual 9.5 X10*3/uL (2.0-8.3); Neutrophils Percent Manual 56 % (45-73); Nucleated Red Blood Cells 2 /100WBC (0-0)
[2023-08-21 06:41] LABS: Promyelocytes Absolute 0.1 X10*3/uL; Promyelocytes Percent 1 %; RBC Morphology NOTED
[2023-08-21 06:42] LABS: Polychromasia 2+ (3-5) /OIF
[2023-08-21 06:43] LABS: Large Platelet PRESENT; Platelet Estimate NORMAL (NORMAL); Platelet Morphology Comment NOTED; Toxic Granulation PRESENT; Toxic Vacuolation PRESENT
[2023-08-21] MEDS: Albuterol/Iprat 2.5/0.5MG 3 ML AMPUL.NEB INHALE ×4 (08:01→19:05)
[2023-08-21] MEDS: Famotidine/PF 20 MG/2 ML VIAL IVPUSH (08:32)
[2023-08-21] MEDS: Insulin Glargine,Hum.rec.anlog 100 UNIT/ML 10 ML VIAL 40 UNIT SUBCUT (08:33)
[2023-08-21] MEDS: Furosemide 40 MG/4 ML VIAL IVPUSH ×2 (08:33→17:35)
[2023-08-21] MEDS: Chlorhexidine Gluc Oral Rinse 15 ML MOUTHWASH BUCCAL ×3 (08:34→20:15)
[2023-08-21] MEDS: Calcitonin,Salmon,Synth Nasal 3.7 ML BOTTLE 1 SPRAY NOSTRIL-B (08:34)
[2023-08-21] MEDS: methADONE HCl 10 MG TABLET PO ×2 (08:34→20:14)
[2023-08-21] MEDS: Lactulose 20 GM/30 ML SOLUTION PO ×3 (08:34→20:16)
[2023-08-21] MEDS: Insulin Glargine,Hum.rec.anlog 100 UNIT/ML 10 ML VIAL 50 UNIT SUBCUT (09:46)
--- NOTE | 2023-08-21 10:10 | MHC.CLN ---
F/U PT WITH INCREASED NUTRITION RISK R/T PRESSURE INJURIES NOTED WOUND STAGED DTI COCCYX, STAGE 2 L & R BUTTOCKS DISCUSSED AT ROUNDS WITH TF ON HOLD R/T LEAKING AROUND STOMA TO START PPN PER MD REVIEWED LABS DISCUSSED WITH PHARMACY RECOMMEND PPN AT 50ML/HR TO PROVIDE 612KCALS, 120G DEXTROSE, 51G PROTEIN REPLETE LYTES NEEDED CHECK TRIGS
[2023-08-21 11:16] LABS: Magnesium 1.7 mg/dL (1.6-2.6); Phosphorus 4.4 mg/dL (2.7-4.5); Triglycerides 237 mg/dL (<150)
[2023-08-21] MEDS: dilTIAZem HCL 125 MG in 0.9 % Sodium Chloride 100 ML 15 MG IVCONT ×2 (11:18→19:21)
--- NOTE | 2023-08-21 11:36 | PM.CCPN ---
Subjective Subjective Date of Service: 08/21/23 Critical Care Time (minutes): 40 Comment: On ventilator support this morning, while attempting to wean from ventilator patient became hypoxic and tachycardic needed 100% oxygen support after that Physical Exam Vital Signs: Vital Signs: Last Vital Signs Temp 98.7 F 08/21/23 08:00 Pulse 102 H 08/21/23 11:00 Resp 18 08/21/23 11:00 BP 130/70 08/21/23 11:00 Pulse Ox 98 08/21/23 11:00 O2 Del Method Mechanical Ventil ation 08/21/23 11:00 O2 Flow Rate 90 08/05/23 15:52 FiO2 40 08/21/23 11:00 BMI result Body Mass Index 38.1 General: Patient in acute distress, ill appearing and tired appearing Nutritional Appearance: well nourished and overweight, cushingoid Eyes: appearance normal, both eyes and all related structures; Alignment and Position: alignment normal and position normal Neck: No lymphadenopathy, no thyromegaly Resp: bilateral air entry equal, occasional bilateral wheezes heard Cardio: Regular rate, regular rhythm; Heart sounds: S1 normal heart sound present and S2 normal heart sound present GI: soft, nontender, no guarding, no hepatosplenomegaly : bladder normal to inspection, bladder normal to palpation, no renal angle tenderness Skin: no rashes or lesions noted and elasticity normal Neuro: oriented to person, oriented to place, o follows commands Objective Data Labs 08/21/23 05:51 08/21/23 05:50 Labs: Laboratory Results - last 24 hr 08/20/23 08/20/23 08/20/23 12:09 17:58 23:46 WBC RBC Hgb Hct MCV MCH MCHC RDW Plt Count MPV Immature Gran % (Auto) Neut % (Auto) Lymph % (Auto) [place] % (Auto) Eos % (Auto) Baso % (Auto) Lymph # (Auto) [place] # (Auto) Eos # (Auto) Baso # (Auto) Abs Immat Gran (auto) Absolute Neuts (auto) Absolute Nucleated RBC Nucleated RBC % (auto) Neutrophils % (Manual) Band Neutrophils % Lymphocytes % (Manual) Monocytes % (Manual) Metamyelocytes % Myelocytes % Promyelocytes % Abs Neuts (Manual) Lymphocytes # (Manual) Monocytes # (Manual) Metamyelocytes # Myelocytes # Promyelocytes # Nucleated RBCs Toxic Granulation Toxic Vacuolation Platelet Estimate Large Platelets Plt Morphology Comment RBC Morphology Polychromasia VBG pH VBG pCO2 VBG pO2 VBG HCO3 VBG O2 Saturation VBG Base Excess Sodium Potassium Chloride Carbon Dioxide Anion Gap BUN Creatinine Estim Creat Clear Calc Estimated GFR POC Glucose 308 H 306 H 297 H Random Glucose Calcium Phosphorus Magnesium Total Bilirubin AST ALT Alkaline Phosphatase Total Protein Albumin Triglycerides 08/21/23 08/21/23 08/21/23 03:05 05:50 05:51 WBC 13.7 H RBC 3.64 L Hgb 10.5 L Hct 34.9 L MCV 95.9 MCH 28.8 MCHC 30.1 L RDW 17.3 H Plt Count 375 MPV 9.8 Immature Gran % (Auto) Cancelled Neut % (Auto) Cancelled Lymph % (Auto) Cancelled [place] % (Auto) Cancelled Eos % (Auto) Cancelled Baso % (Auto) Cancelled Lymph # (Auto) Cancelled [place] # (Auto) Cancelled Eos # (Auto) Cancelled Baso # (Auto) Cancelled Abs Immat Gran (auto) Cancelled Absolute Neuts (auto) Cancelled Absolute Nucleated RBC 0.330 H Nucleated RBC % (auto) 2.4 H Neutrophils % (Manual) 56 Band Neutrophils % 13 H Lymphocytes % (Manual) 14 L Monocytes % (Manual) 12 H Metamyelocytes % 2 Myelocytes % 2 Promyelocytes % 1 Abs Neuts (Manual) 9.5 H Lymphocytes # (Manual) 1.9 Monocytes # (Manual) 1.6 H Metamyelocytes # 0.3 Myelocytes # 0.3 Promyelocytes # 0.1 Nucleated RBCs 2 H Toxic Granulation PRESENT Toxic Vacuolation PRESENT Platelet Estimate NORMAL Large Platelets PRESENT Plt Morphology Comment NOTED RBC Morphology NOTED Polychromasia 2+ (3-5) VBG pH 7.63 H* VBG pCO2 38 VBG pO2 86 VBG HCO3 39 H VBG O2 Saturation 98.0 VBG Base Excess 17.5 Sodium 141 Potassium 4.2 Chloride 93 L Carbon Dioxide 32 H Anion Gap 20 BUN 31 H Creatinine 0.61 Estim Creat Clear Calc 105.6 Estimated GFR > 60 POC Glucose 249 H Random Glucose 303 H Calcium 9.8 Phosphorus 4.4 Magnesium 1.7 Total Bilirubin 0.6 AST 20 ALT 24 Alkaline Phosphatase 86 Total Protein 6.9 Albumin 3.1 L Triglycerides 237 H 08/21/23 08/21/23 05:59 10:50 WBC RBC Hgb Hct MCV MCH MCHC RDW Plt Count MPV Immature Gran % (Auto) Neut % (Auto) Lymph % (Auto) [place] % (Auto) Eos % (Auto) Baso % (Auto) Lymph # (Auto) [place] # (Auto) Eos # (Auto) Baso # (Auto) Abs Immat Gran (auto) Absolute Neuts (auto) Absolute Nucleated RBC Nucleated RBC % (auto) Neutrophils % (Manual) Band Neutrophils % Lymphocytes % (Manual) Monocytes % (Manual) Metamyelocytes % Myelocytes % Promyelocytes % Abs Neuts (Manual) Lymphocytes # (Manual) Monocytes # (Manual) Metamyelocytes # Myelocytes # Promyelocytes # Nucleated RBCs Toxic Granulation Toxic Vacuolation Platelet Estimate Large Platelets Plt Morphology Comment RBC Morphology Polychromasia VBG pH VBG pCO2 VBG pO2 VBG HCO3 VBG O2 Saturation VBG Base Excess Sodium Potassium Chloride Carbon Dioxide Anion Gap BUN Creatinine Estim Creat Clear Calc Estimated GFR POC Glucose 295 H Random Glucose Calcium Phosphorus Cancelled Magnesium Cancelled Total Bilirubin AST ALT Alkaline Phosphatase Total Protein Albumin Triglycerides Cancelled Microbiology Microbiology Results: Microbiology 08/03/23 16:38 Sputum - Expectorated Gram Stain - Final 08/03/23 16:38 Sputum - Expectorated Sputum Culture - Final Aspergillus fumigatus 08/19/23 09:51 Blood - Venous Blood Culture - Preliminary No growth after 24 hours. 08/19/23 09:51 Blood - Venous Blood Culture - Preliminary No growth after 24 hours. 08/02/23 14:20 Blood - Venous Blood Culture - Final No growth after 5 days. 08/02/23 13:36 Blood - Venous Blood Culture - Final No growth after 5 days. Progress Note: A&P Assessment and plan (1) Status post tracheostomy: Status: Acute (2) Encephalopathy acute: Status: Acute (3) Acute on chronic respiratory failure with hypoxia and hypercapnia: Status: Acute (4) Acute exacerbation of chronic obstructive airways disease: Status: Acute (5) Intensive care (ICU) myopathy: Status: Acute (6) Opioid dependence: Status: Acute Plan 53 year old female with history of chronic hypoxic and hypercarbic respiratory failure on 2 L nasal cannula and BiPAP at night, CHITO/OHS/asthma/COPD overlap, chronic methadone use, diabetes, recurrent admissions for respiratory failure was admitted to the floor on 08/02/2023 and on 08/05/2023 patient became extremely lethargic, unresponsive while on BiPAP due to worsening hypercapnic respiratory failure needing intubation and ventilator support. Given patient's chronic respiratory failure needing multiple admissions and failed extubation on 08/11/2023 she underwent tracheostomy and PEG tube placement on 08/12/2023 Acute encephalopathy: Secondary to metabolic encephalopathy As needed p.r.n. pain medications Started on methadone 10 mg b.i.d. yesterday we will slowly uptitrate. Her home dose of methadone 50 mg daily and she is off of it for few days. QT interval normal, 450 Acute on chronic respiratory failure: Has significant underlying chronic lung disease with poor reserve now intubated and on ventilator support for acute exacerbation of COPD Currently she is status post tracheostomy tube placement Failed pressor support trials when she became severely hypoxic needing increase in oxygen support. Change back to PRVC mode currently on 50% needing peep of 10 PEG tube dislodgement: PEG tube replaced , continues to have some leak Medications allowed through G-tube Atrial fibrillation with RVR: Currently in sinus rhythm with sinus tachycardia Oral diltiazem held as oral medication has been held On metoprolol q.4 hours Heart failure with preserved ejection fraction: Diuresis with Lasix to keep fluid balance even metoprolol and diltiazem Hyperglycemia: Dose of Lantus increased to 45 units Sliding scale insulin as needed Lines: Peripheral off of Adan catheter Prophylaxis: Lovenox, pantoprazole Critical care time spent is about 40 minutes mainly on ventilator management, change in ventilator settings, managing episodes of hypoxia and this time is excluding procedural time Quality Stroke Does the patient have a stroke diagnosis?: No VTE Prior VTE?: No VTE Risk Level:: Medical - moderate - high VTE Device Contraindication: Treatment Not Indicated VTE Drug Contraindication: N/A - Med Ordered
[2023-08-21 11:44] LABS: Glucose, Whole Blood 280 mg/dL (60-115)
--- NOTE | 2023-08-21 12:06 | MHC.CM.PN ---
Pt continues care in ICU: following simple commands but not reliably: continues on Cardizem gtt and IVP Lasix: experiencing urinary retention - may need Adan if straight cath isn't working. Clinical updates remitted to [facility] with request for tentative transfer day. feels [facility] can manage all of pt's needs at this time and she should begin PT/OT and other therapies bk to maximize functional ability. Awaiting [facility]'s response. Calls to pt's HCPs, Tay and Miguel to update. CM to follow.
[2023-08-21 17:29] LABS: Glucose, Whole Blood 203 mg/dL (60-115)
[2023-08-21] MEDS: Parenteral Nutrition 1,200 ML 50 ML IV (21:29)
--- NOTE | 2023-08-21 22:59 | P.CNID_ITS ---
History of Present Illness Data of Consult Service Date: 08/21/23 Requesting physician: Puneet Castellanos Primary Care Provider: Kelli Benavides MD HPI Reason for consult: aspergillus sputum,08/02 She presents with shortness of breath as well as cough for a day. She was admitted with COPD exacerbation and admitted to ICU. She has temperature today to 100.6. She has culture from 08/02 with aspergillus and reported foul smelling sputum. She has xr patchy airspace disease. She has had CT scan lung last month CT 07/23 showed emphysema. Review of Systems 2 Review of Systems: Yes all other systems are reviewed and are negative PMFSH Past Medical History Medical History (Updated 08/21/23 @ 23:07 by Joellen Oneill MD) Positive sputum culture for Aspergillus Leaking PEG tube Type 2 diabetes mellitus Opioid dependence Intensive care (ICU) myopathy Asthma CHITO (obstructive sleep apnea) Constipation Salmonella gastroenteritis Obesity with alveolar hypoventilation Congestive heart failure Chronic constipation Acute respiratory failure Hypertensive cardiovascular disease Pulmonary nodule Chronic respiratory failure Tobacco abuse Asthma-COPD overlap syndrome Hyperlipidemia, unspecified Essential hypertension Chronic respiratory failure Family History Family History Father Diabetes Other Asthma Family history: reviewed and not pertinent Surgical History Surgical History H/O tubal ligation Social History Social History Household Members: Children Household Members Other:: daughter Housing: Apartment Do you presently have visiting nurse or other home services: Yes Unable to assess alcohol history related to: Unknown Alcohol intake: never Comment: bilateral wrist restraints for airway safety Patient Tobacco Use Status: Former Tobacco user Tobacco use type: Cigarette Cigarettes Per Day: 1 Years Smoked: 35 e-Cigarette/Vaping Use: Currently Using Second Hand Smoke Exposure: No Substance Use Type: Opiates Advance Directives Date on File: 06/12/21 service: No Current occupational status: unemployed and disabled Meds Allergies Allergy/AdvReac Type Severity Reaction Status Date / Time No Known Allergies Allergy Verified 08/02/23 13:35 [No Known Allergies*] Active Medications: Current Medications Acetaminophen (Acetaminophen 325 Mg Tablet) 975 mg PO Q6H PRN PRN Reason: Pain, Mild (Pain Scale 1-3) Last Admin: 08/15/23 00:21 Dose: 975 mg Albuterol/Ipratropium (Albuterol/Iprat 2.5/0.5mg 3 Ml Ampul.Neb) 3 ml INHALE RQ4H WHILE AWAKE [facility] Last Admin: 08/21/23 19:05 Dose: 3 ml Calcitonin Mccamey (Calcitonin,Mccamey,Synth Nasal 3.7 Ml Bottle) 1 spray NOSTRIL-B DAILY [facility] Last Admin: 08/21/23 08:34 Dose: 1 spray Chlorhexidine Gluconate (Chlorhexidine Gluc Oral Rinse 15 Ml Mouthwash) 15 ml BUCCAL TID [facility] Last Admin: 08/21/23 20:15 Dose: 15 ml Diltiazem HCl (Diltiazem Hcl 60 Mg Tablet) 60 mg PO QID [facility]; Protocol Last Admin: 08/21/23 20:52 Dose: Not Given Famotidine (Famotidine/Pf 20 Mg/2 Ml Vial) 20 mg IVPUSH DAILY [facility] Last Admin: 08/21/23 08:32 Dose: 20 mg Furosemide (Furosemide 40 Mg/4 Ml Vial) 40 mg IVPUSH BID@0900,1800 [facility]; Protocol Last Admin: 08/21/23 17:35 Dose: 40 mg Glucose (Glucose Gel 15 Gm Gel..Gram.) 15 gm PO Q15M PRN; Protocol PRN Reason: per Hypoglycemia Standing Ord. Heparin Sodium (Porcine) (Heparin Sodium,Porcine 5,000 Unit/Ml Vial) 5,000 unit SUBCUT Q8H [facility] Last Admin: 08/21/23 17:36 Dose: 5,000 unit Hydromorphone HCl (Hydromorphone Hcl 0.5 Mg/0.5 Ml Syringe) 0.5 mg IVPUSH Q2H PRN; Protocol PRN Reason: distress Last Admin: 08/20/23 02:47 Dose: 0.5 mg Dextrose (D10) 250 mls @ 750 mls/hr IV Q15M PRN; Protocol PRN Reason: per Hypoglycemia Standing Ord. Insulin Human Regular (Myxredlin) 100 unit in 100 mls @ 9 mls/hr IVCONT .Q11H7M [facility]; Protocol Last Admin: 08/21/23 21:30 Dose: Not Given Dextrose (D10) 250 mls @ 750 mls/hr IV Q30M PRN PRN Reason: BG <70 Diltiazem HCl 125 mg/ Sodium (Chloride) 125 mls @ 0 mls/hr IVCONT .Q0M [facility]; Protocol Last Admin: 08/21/23 19:21 Dose: 15 mg/hr, 15 mls/hr Nutrition (Parenteral) (Parenteral Nutrition) 1,200 mls @ 50 mls/hr IV .Q24H [facility]; Protocol Stop: 08/22/23 20:59 Last Admin: 08/21/23 21:29 Dose: 50 mls/hr Insulin Glargine (Insulin Glargine,Hum.Rec.Anlog 100 Unit/Ml 10 Ml Vial) 50 unit SUBCUT DAILY [facility] Last Admin: 08/21/23 09:46 Dose: 10 unit Insulin Human Lispro (Insulin Lispro 100 Unit/Ml 3 Ml Vial) 0 unit SUBCUT Q6H [facility]; Protocol Last Admin: 08/21/23 17:36 Dose: 4 unit Lactic Acid (Ammonium Lactate 12 % Lotion 226 Gm Bottle) 1 appl TOPICAL DAILY PRN; Protocol PRN Reason: Dry Skin Lactulose (Lactulose 20 Gm/30 Ml Solution) 20 gm PO TID [facility] Last Admin: 08/21/23 20:16 Dose: 20 gm Lidocaine (Lidocaine 4 % Patch Adh..Patch) 1 patch TRANSDERMA DAILY PRN PRN Reason: Pain Methadone HCl (Methadone Hcl 10 Mg Tablet) 10 mg PO BID [facility] Last Admin: 08/21/23 20:14 Dose: 10 mg Metoprolol Tartrate (Metoprolol Tartrate 25 Mg Tablet) 25 mg PO Q6H [facility]; Protocol Last Admin: 08/21/23 20:15 Dose: 25 mg Midazolam HCl (Midazolam Hcl/Pf 2 Mg/2 Ml Vial) 4 mg IVPUSH Q4H PRN PRN Reason: ventilator synchrony Ondansetron HCl (Ondansetron Hcl 4 Mg/2 Ml Vial) 4 mg IVPUSH Q8H PRN PRN Reason: Nausea and Vomiting Last Admin: 08/05/23 04:20 Dose: 4 mg Pharmacy Consult (Consult Rx Parenteral Nutrition Ordering) 1 each MISCELLANE DAILY PRN PRN Reason: Consult order Sodium Chloride (0.9 % Sodium Chloride Flush 3 Ml Syringe) 3 ml IVFLUSH QSHIFT [facility] Last Admin: 08/21/23 17:37 Dose: 3 ml Home Medications ?Medication ?Instructions ?Recorded ?Confirmed ?Last Taken ?Type loratadine 10 mg tablet (Claritin) 10 mg PO DAILY 12/30/19 08/03/23 05/18/23 History montelukast 10 mg tablet 10 mg PO BEDTIME 12/30/19 08/03/23 05/18/23 History diltiazem HCl 360 mg capsule,24 360 mg PO DAILY 11/16/20 08/03/23 05/18/23 History hr,extended release (Tiadylt ER) roflumilast 500 mcg tablet 500 mcg PO DAILY 11/16/20 08/03/23 05/18/23 History (Daliresp) rosuvastatin 5 mg tablet 5 mg PO BEDTIME 11/16/20 08/03/23 05/18/23 History metformin 500 mg tablet,extended 500 mg PO DAILY 05/18/21 08/03/23 05/18/23 History release 24 hr methadone 10 mg/mL oral concentrate 50 mg PO DAILY 06/06/21 08/03/23 08/02/23 09:00 History hydralazine 25 mg tablet 25 mg PO TIDWM 11/02/21 08/03/23 05/18/23 History insulin lispro 100 unit/mL 4 unit subcut TIDAC PRN 11/02/21 08/03/23 05/18/23 History subcutaneous solution Hyperglycemia clonazepam 1 mg tablet 1 mg PO BID PRN Anxiety 06/28/22 08/03/23 Unknown History lamotrigine 150 mg tablet 150 mg PO BID 07/29/22 08/03/23 05/18/23 History calcitonin (salmon) 200 1 spray intranasal DAILY 09/30/22 08/03/23 05/18/23 History unit/actuation nasal spray insulin glargine 100 unit/mL 45 unit subcut BEDTIME 09/30/22 08/03/23 05/18/23 History subcutaneous solution (Lantus U-100 Insulin) docusate sodium 100 mg capsule 100 mg PO BID PRN constipation 10/20/22 08/03/23 Unknown History nebulizers 11/08/22 07/16/23 02/02/23 09:00 History polyethylene glycol 3350 17 17 g PO DAILY PRN constipation 12/21/22 08/03/23 02/20/23 History gram/dose oral powder (Miralax) ammonium lactate 12 % lotion 1 appl topical DAILY PRN Dry Skin 02/02/23 08/03/23 05/18/23 History diclofenac sodium 1 % topical gel 4 g topical QID PRN Pain 05/04/23 08/03/23 Unknown History zolpidem 5 mg tablet 5 mg PO BEDTIME PRN Sleep 05/04/23 08/03/23 Unknown History cholecalciferol (vitamin D3) 1,250 1,250 mcg PO MOTH 05/19/23 08/03/23 Unknown History mcg (50,000 unit) capsule lidocaine 5 % topical patch 1 patch topical DAILY PRN Pain 05/19/23 08/03/23 Unknown History azathioprine 50 mg tablet 100 mg PO DAILY 06/24/23 08/03/23 Unknown History Physical Exam 2 Vital Signs: Vital Signs: Last Vital Signs Temp 100.6 F H 08/21/23 22:00 Pulse 99 08/21/23 22:00 Resp 18 08/21/23 22:00 BP 94/70 08/21/23 22:00 Pulse Ox 96 08/21/23 22:00 O2 Del Method Trach Collar 08/21/23 22:00 O2 Flow Rate 90 08/05/23 15:52 FiO2 40 08/21/23 22:00 BMI result Body Mass Index 38.1 Results Labs 08/21/23 05:51 08/21/23 05:50 Labs: Short CBC 08/21/23 Range/Units 05:51 WBC 13.7 H (4.8-10.8) X10*3/uL Hgb 10.5 L (12.0-16.0) g/dl Hct 34.9 L (37.0-47.0) % Plt Count 375 (160-400) X10*3/uL BMP 08/21/23 05:50 Sodium 141 Potassium 4.2 Chloride 93 L Carbon Dioxide 32 H BUN 31 H Creatinine 0.61 Calcium 9.8 Liver Function 08/21/23 Range/Units 05:50 Total Bilirubin 0.6 (0.0-1.0) mg/dL AST 20 (5-31) U/L ALT 24 (0-31) U/L Alkaline Phosphatase 86 (39-117) U/L Albumin 3.1 L (3.5-5.0) g/dL Microbiology Microbiology Results: Microbiology 08/19/23 09:51 Blood - Venous Blood Culture - Preliminary No growth after 48 hours. 08/19/23 09:51 Blood - Venous Blood Culture - Preliminary No growth after 48 hours. 08/03/23 16:38 Sputum - Expectorated Gram Stain - Final 08/03/23 16:38 Sputum - Expectorated Sputum Culture - Final Aspergillus fumigatus 08/02/23 14:20 Blood - Venous Blood Culture - Final No growth after 5 days. 08/02/23 13:36 Blood - Venous Blood Culture - Final No growth after 5 days. Assessment and Plan (1) Leaking PEG tube: Status: Acute (2) Status post tracheostomy: Status: Acute (3) Acute on chronic respiratory failure with hypoxia and hypercapnia: Status: Acute (4) Chronic respiratory failure: Qualifiers: Respiratory failure complication: hypoxia and hypercapnia Qualified Code(s): J96.11 - Chronic respiratory failure with hypoxia; J96.12 - Chronic respiratory failure with hypercapnia Status: Acute (5) Positive sputum culture for Aspergillus: Status: Acute Plan This culture is from last month for aspergillosis. Patient doesnt have increased oxygen demands right now. This organism is not associated with odor. There are no specific XRay findings. Would not give antifungal at this time. Check fungitell. Maintain good airway hygiene. Consider recheck CT scan lung look for cavities Make sure lines are new and recheck blood culture with new fever.
[2023-08-21 23:30] LABS: Glucose, Whole Blood 273 mg/dL (60-115)
[2023-08-22] VITALS (40 sets, daily range): BP systolic 97–148; BP diastolic 46–81; PULSE 24–128; RESP 16–95; TEMP 35–39.2; O2SAT 61–100; BMI 38.5
[2023-08-22 00:04] LABS: Troponin-I High Sensitivity 3.6 ng/L (<3.5-17.0)
[2023-08-22] MEDS: Heparin Sodium,Porcine 5,000 UNIT/ML VIAL 5000 UNIT SUBCUT ×3 (00:47→18:05)
[2023-08-22 03:19] LABS: Troponin-I High Sensitivity 3.4 ng/L (<3.5-17.0)
[2023-08-22] MEDS: dilTIAZem HCL 125 MG in 0.9 % Sodium Chloride 100 ML 15 MG IVCONT ×2 (03:20→11:51)
[2023-08-22] MEDS: Metoprolol Tartrate 25 MG TABLET PO ×4 (03:21→20:23)
[2023-08-22 05:19] LABS: Hematocrit 32.4 % (37.0-47.0); Hemoglobin 9.7 g/dl (12.0-16.0); Mean Corpuscular HGB Conc 29.9 g/dl (31.0-35.0); Mean Corpuscular Hemoglobin 28.6 pg (27.0-33.0); Mean Corpuscular Volume 95.6 fL (80.0-98.0); Mean Platelet Volume 9.6 fL (9.4-12.3); Platelet Count 377 X10*3/uL (160-400); Red Blood Count 3.39 X10*6/uL (4.20-5.50)
[2023-08-22 05:20] LABS: NRBC Pct Auto 2.6 /100WBC (0.0-0.2); WBC ABN SCTR FOR CBC 1; White Blood Count 12.9 X10*3/uL (4.8-10.8)
[2023-08-22 05:42] LABS: Alanine Aminotransferase 21 U/L (0-31); Alkaline Phosphatase 82 U/L (39-117); Anion Gap 16 (12-20); Aspartate Amino Transferase 19 U/L (5-31); Bilirubin Total 0.5 mg/dL (0.0-1.0); Blood Urea Nitrogen 34 mg/dL (9-16); Calcium 10.1 mg/dL (8.4-10.2); Carbon Dioxide 35 mmol/L (22-29); Chloride 95 mmol/L (96-108); Creatinine Clr Calc Pharmacy 71.5; Estimated Glomerular Filt Rate > 60; Glucose Random 374 mg/dL (60-115); Magnesium 1.7 mg/dL (1.6-2.6); Phosphorus 3.7 mg/dL (2.7-4.5); Potassium 3.7 mmol/L (3.3-5.1); Sodium 142 mmol/L (135-145); Total Protein 6.8 g/dL (6.5-8.0)
[2023-08-22] MEDS: Insulin Lispro 100 UNIT/ML 3 ML VIAL SUBCUT ×5 (05:49→23:59)
[2023-08-22 06:10] LABS: Atypical Lymph Absolute Manual 0.3 x10*3/uL; Atypical Lymphs Percent Manual 2 % (0-6); Band Neutrophils Percent 20 % (3-5); Hypochromasia 1+ (5-14) /OIF; Lymphocytes Absolute Manual 1.7 X10*3/uL (1.2-4.9); Lymphocytes Percent Manual 13 % (20-40); Metamyelocytes Absolute 0.3 X10*3/uL; Metamyelocytes Percent 2 %; Monocytes Percent Manual 8 % (2-11); Myelocytes Absolute 0.3 X10*/uL; Myelocytes Percent 2 %; Neutrophils Absolute Manual 9.3 X10*3/uL (2.0-8.3); Neutrophils Percent Manual 52 % (45-73); Nucleated Red Blood Cells 3 /100WBC (0-0); Platelet Estimate NORMAL (NORMAL); Platelet Morphology Comment NORMAL; Polychromasia 2+ (3-5) /OIF; Promyelocytes Absolute 0.1 X10*3/uL; Promyelocytes Percent 1 %; RBC Morphology NOTED; Toxic Granulation PRESENT
[2023-08-22] MEDS: Albuterol/Iprat 2.5/0.5MG 3 ML AMPUL.NEB INHALE ×4 (08:21→19:04)
[2023-08-22] MEDS: methADONE HCl 10 MG TABLET PO (08:52)
[2023-08-22] MEDS: Famotidine/PF 20 MG/2 ML VIAL IVPUSH (08:52)
[2023-08-22] MEDS: Furosemide 40 MG/4 ML VIAL IVPUSH ×2 (08:52→18:04)
[2023-08-22] MEDS: Insulin Glargine,Hum.rec.anlog 100 UNIT/ML 10 ML VIAL 50 UNIT SUBCUT (08:53)
[2023-08-22] MEDS: 0.9 % Sodium Chloride Flush 3 ML SYRINGE IVFLUSH ×3 (08:53→20:23)
[2023-08-22] MEDS: Chlorhexidine Gluc Oral Rinse 15 ML MOUTHWASH BUCCAL ×3 (08:55→20:21)
[2023-08-22] MEDS: Lactulose 20 GM/30 ML SOLUTION PO ×3 (08:55→20:21)
[2023-08-22] MEDS: Calcitonin,Salmon,Synth Nasal 3.7 ML BOTTLE 1 SPRAY NOSTRIL-B (08:55)
[2023-08-22] MEDS: lamoTRIgine 25 MG TABLET 150 MG PO ×2 (10:50→20:22)
[2023-08-22] MEDS: clonazePAM 1 MG TABLET PO ×2 (10:50→20:23)
[2023-08-22] MEDS: HYDROmorphone HCl 0.5 MG/0.5 ML SYRINGE IVPUSH ×2 (11:11→14:59)
--- NOTE | 2023-08-22 11:18 | MHC.CLN ---
PT IS S/P TRACH/PEG NEW PEG IS LEAKING AND UNABLE TO UTILIZE FOR FEED AT THIS TIME PT IS NOW RECEIVING PPN YESTERDAY STARTED PPN AT 50ML/HR TO PROVIDE 612KCALS, 120G DEXTROSE, 51G PROTIEN REVIEWED LABS-NOTED ELEVATED BS; MD CUELLAR DISCUSSED WITH PHARMACY 08/22/23 RECOMMEND PPN INCREASE TO 70ML/HR TO PROVIDE 857KCALS, 168G DEXTROSE, 71G PROTEIN REPLETE LYTES NEEDED, CHECK TRIGS 08/23/23 IF TRIGS WNL; RECOMMEND PPN CONTINUE AT MAX GOAL RATE 70ML/HR AND ADD 50G LIPIDS TO PROVIDE 1357 TOTAL KCALS (23KCALS/KG), 168G DEXTROSE, 71G PROTEIN (1.2G/KG) REPLETE LYTES NEEDED 08/24/23 NOTED ABOVE; CONTINUE SAME PLAN DATED 08/23/23 RD CAN BE REACHED VIA [employer] DURING OFF HOURS IF NEEDED SEE ALSO FULL CLINICAL NUTRITION ASSESSMENT
[2023-08-22 12:22] LABS: Glucose, Whole Blood 371 mg/dL (60-115)
--- NOTE | 2023-08-22 13:48 | P.PNCC_ITS ---
Subjective Subjective Date of Service: 08/22/23 Critical Care Time (minutes): 40 Comment: Doing better, on pressor support for about 5 hours since this morning and tolerating well More alert, following commands Hemodynamically stable Physical Exam 2 Vital Signs: Vital Signs: Last Vital Signs Temp 101.1 F H 08/22/23 13:00 Pulse 99 08/22/23 13:00 Resp 28 H 08/22/23 13:00 BP 120/72 08/22/23 13:00 Pulse Ox 91 L 08/22/23 13:00 O2 Del Method Mechanical Ventil ation 08/22/23 13:00 O2 Flow Rate 90 08/05/23 15:52 FiO2 40 08/22/23 13:00 BMI result Body Mass Index 38.5 General:not in acute distress, ill appearing Nutritional Appearance: well nourished and overweight Eyes: appearance normal, both eyes and all related structures; Alignment and Position: alignment normal and position normal Neck: No lymphadenopathy, no thyromegaly Resp: bilateral air entry equal, occasional added sounds present bilaterally Cardio: Regular rate, regular rhythm; Heart sounds: S1 normal heart sound present and S2 normal heart sound present GI: soft, nontender, no guarding, no hepatosplenomegaly : bladder normal to inspection, bladder normal to palpation, no renal angle tenderness Skin: no rashes or lesions noted and elasticity normal Neuro: oriented to person, oriented to place, oriented to time and moves all extremities Objective Data Labs 08/22/23 05:10 08/22/23 05:10 Labs: Laboratory Results - last 24 hr 08/21/23 08/21/23 08/21/23 17:26 23:25 23:36 WBC RBC Hgb Hct MCV MCH MCHC RDW Plt Count MPV Immature Gran % (Auto) Neut % (Auto) Lymph % (Auto) [place] % (Auto) Eos % (Auto) Baso % (Auto) Lymph # (Auto) [place] # (Auto) Eos # (Auto) Baso # (Auto) Abs Immat Gran (auto) Absolute Neuts (auto) Absolute Nucleated RBC Nucleated RBC % (auto) Neutrophils % (Manual) Band Neutrophils % Lymphocytes % (Manual) Atypical Lymphs % (Man) Monocytes % (Manual) Metamyelocytes % Myelocytes % Promyelocytes % Abs Neuts (Manual) Lymphocytes # (Manual) Atyp Lymphs # (Manual) Monocytes # (Manual) Metamyelocytes # Myelocytes # Promyelocytes # Nucleated RBCs Toxic Granulation Platelet Estimate Plt Morphology Comment RBC Morphology Polychromasia Hypochromasia Sodium Potassium Chloride Carbon Dioxide Anion Gap BUN Creatinine Estim Creat Clear Calc Estimated GFR POC Glucose 203 H 273 H Random Glucose Calcium Phosphorus Magnesium Total Bilirubin AST ALT Alkaline Phosphatase Troponin I High Sens 3.6 D Total Protein Albumin 08/22/23 08/22/23 08/22/23 02:56 05:10 12:19 WBC 12.9 H RBC 3.39 L Hgb 9.7 L Hct 32.4 L MCV 95.6 MCH 28.6 MCHC 29.9 L RDW 17.0 H Plt Count 377 MPV 9.6 Immature Gran % (Auto) Cancelled Neut % (Auto) Cancelled Lymph % (Auto) Cancelled [place] % (Auto) Cancelled Eos % (Auto) Cancelled Baso % (Auto) Cancelled Lymph # (Auto) Cancelled [place] # (Auto) Cancelled Eos # (Auto) Cancelled Baso # (Auto) Cancelled Abs Immat Gran (auto) Cancelled Absolute Neuts (auto) Cancelled Absolute Nucleated RBC 0.340 H Nucleated RBC % (auto) 2.6 H Neutrophils % (Manual) 52 Band Neutrophils % 20 H Lymphocytes % (Manual) 13 L Atypical Lymphs % (Man) 2 Monocytes % (Manual) 8 Metamyelocytes % 2 Myelocytes % 2 Promyelocytes % 1 Abs Neuts (Manual) 9.3 H Lymphocytes # (Manual) 1.7 Atyp Lymphs # (Manual) 0.3 Monocytes # (Manual) 1.0 Metamyelocytes # 0.3 Myelocytes # 0.3 Promyelocytes # 0.1 Nucleated RBCs 3 H Toxic Granulation PRESENT Platelet Estimate NORMAL Plt Morphology Comment NORMAL RBC Morphology NOTED Polychromasia 2+ (3-5) Hypochromasia 1+ (5-14) Sodium 142 Potassium 3.7 Chloride 95 L Carbon Dioxide 35 H Anion Gap 16 BUN 34 H Creatinine 0.90 Estim Creat Clear Calc 71.5 Estimated GFR > 60 POC Glucose 371 H* Random Glucose 374 H* Calcium 10.1 Phosphorus 3.7 Magnesium 1.7 Total Bilirubin 0.5 AST 19 ALT 21 Alkaline Phosphatase 82 Troponin I High Sens 3.4 Total Protein 6.8 Albumin 3.0 L Microbiology Microbiology Results: Microbiology 08/21/23 17:34 Tracheal Aspirate Gram Stain - Final 08/21/23 17:34 Tracheal Aspirate Sputum Culture - Preliminary Culture in progress. 08/19/23 09:51 Blood - Venous Blood Culture - Preliminary No growth after 48 hours. 08/19/23 09:51 Blood - Venous Blood Culture - Preliminary No growth after 48 hours. 08/03/23 16:38 Sputum - Expectorated Gram Stain - Final 08/03/23 16:38 Sputum - Expectorated Sputum Culture - Final Aspergillus fumigatus 08/02/23 14:20 Blood - Venous Blood Culture - Final No growth after 5 days. 08/02/23 13:36 Blood - Venous Blood Culture - Final No growth after 5 days. Progress Note: A&P Assessment and plan (1) Status post tracheostomy: Status: Acute (2) Encephalopathy acute: Status: Acute (3) Acute exacerbation of chronic obstructive airways disease: Status: Acute (4) Acute on chronic respiratory failure with hypoxia and hypercapnia: Status: Acute (5) CHITO (obstructive sleep apnea): Status: Acute Plan Neuro: Started on methadone 10 mg b.i.d. uptitrated to 20mg BID today. Her home dose of methadone 50 mg daily and she is off of it for few days. QT interval normal, 450 restarted home clonazepam 1mg BID and ambien to sleep mental status has imrpoved, following all commands and answering questions appropriately Acute on chronic respiratory failure: Admitted for acute exacerbation of COPD Currently she is status post tracheostomy tube placement Doing well on pressor support trials for over 5 hours now, on pressor support trials since 08:30 this morning; good tidal volumes around 300-400, respiratory rate in 20s. We will try to see if she can tolerate trach collar today PEG tube dislodgement: PEG tube replaced , continues to have some leak Medications allowed through G-tube Atrial fibrillation with RVR: Currently in sinus rhythm , rate better controlled today Oral diltiazem continued On metoprolol q.4 hours Heart failure with preserved ejection fraction: Diuresis with Lasix to keep fluid balance even Continue metoprolol and diltiazem Hyperglycemia: Lantus changed to 30 units b.i.d. today Sliding scale insulin as needed Lines: Peripheral off of Adan catheter Prophylaxis: Lovenox, pantoprazole Quality Stroke Does the patient have a stroke diagnosis?: No VTE Prior VTE?: No VTE Risk Level:: Medical - moderate - high VTE Device Contraindication: Treatment Not Indicated VTE Drug Contraindication: N/A - Med Ordered
--- NOTE | 2023-08-22 15:45 | MHC.CM.PN ---
Pt continues care in ICU: trialing PSV with goal of transitioning to a trach collar. Pt w/fever and leaking replaced Peg tube - insulin adjusted to maximize glucose control [facility] following for LTAC placement: referral also made today to [facility] who is able to accept trachs at 20 day maturity. CM to follow for eventual transfer to next level of care.
[2023-08-22 17:31] LABS: Glucose, Whole Blood 300 mg/dL (60-115)
[2023-08-22] MEDS: methADONE HCl 10 MG TABLET 20 MG PO (20:22)
[2023-08-22] MEDS: dilTIAZem HCL 60 MG TABLET PO (20:23)
[2023-08-22] MEDS: Parenteral Nutrition 1,680 ML 70 ML IV (20:30)
[2023-08-22] MEDS: dilTIAZem HCL 125 MG in 0.9 % Sodium Chloride 100 ML 10 MG IVCONT (20:43)
[2023-08-22] MEDS: Insulin Glargine,Hum.rec.anlog 100 UNIT/ML 10 ML VIAL 30 UNIT SUBCUT (22:05)
[2023-08-22 23:50] LABS: Glucose, Whole Blood 385 mg/dL (60-115)
[2023-08-23] VITALS (46 sets, daily range): BP systolic 94–135; BP diastolic 44–82; PULSE 75–108; RESP 14–30; TEMP 34.6–38; O2SAT 89–98; BMI 38.2
[2023-08-23] MEDS: HYDROmorphone HCl 0.5 MG/0.5 ML SYRINGE IVPUSH (02:11)
[2023-08-23] MEDS: Heparin Sodium,Porcine 5,000 UNIT/ML VIAL 5000 UNIT SUBCUT ×3 (02:11→17:02)
[2023-08-23] MEDS: Metoprolol Tartrate 25 MG TABLET PO ×4 (02:55→20:21)
--- NOTE | 2023-08-23 04:24 | PC.NURSE ---
[employer] and another RN attempted to replace the right (lower) arm IV dated 08/14, though attempts were unsuccessful despite using ultrasound. IV remains in place until replacement can be attempted/obtained by next shift as the other IV has PPN infusing as ordered.
[2023-08-23 05:05] LABS: PLT CLUMP 1; Red Cell Distribution Width 17.2 % (11.0-16.0)
[2023-08-23 05:06] LABS: VBG Base Excess 13.7 mmol/L; VBG HCO3 39 mmol/L (22-26); VBG pCO2 55 mmHg; VBG pH 7.46 (7.32-7.43); VBG pO2 51 mmHg
[2023-08-23 05:08] LABS: Hematocrit 31.5 % (37.0-47.0); Hemoglobin 9.3 g/dl (12.0-16.0); Mean Corpuscular HGB Conc 29.5 g/dl (31.0-35.0); Mean Corpuscular Volume 98.1 fL (80.0-98.0); Mean Platelet Volume 10.5 fL (9.4-12.3); Red Blood Count 3.21 X10*6/uL (4.20-5.50)
[2023-08-23 05:10] LABS: Venous Blood Gas Refer to POC result
[2023-08-23 05:26] LABS: Alanine Aminotransferase 20 U/L (0-31); Albumin Level 2.9 g/dL (3.5-5.0); Alkaline Phosphatase 83 U/L (39-117); Anion Gap 16 (12-20); Aspartate Amino Transferase 19 U/L (5-31); Bilirubin Total 0.4 mg/dL (0.0-1.0); Blood Urea Nitrogen 30 mg/dL (9-16); Carbon Dioxide 30 mmol/L (22-29); Chloride 97 mmol/L (96-108); Creatinine Clr Calc Pharmacy 58.6; Estimated Glomerular Filt Rate 52; Magnesium 1.9 mg/dL (1.6-2.6); Phosphorus 4.2 mg/dL (2.7-4.5); Potassium 4.2 mmol/L (3.3-5.1); Sodium 139 mmol/L (135-145); Total Protein 6.7 g/dL (6.5-8.0); Triglycerides 228 mg/dL (<150)
[2023-08-23 05:33] LABS: NRBC Pct Auto 2.5 /100WBC (0.0-0.2); Platelet Count 196 X10*3/uL (160-400); WBC ABN SCTR FOR CBC 1
[2023-08-23 05:38] LABS: Band Neutrophils Percent 9 % (3-5); Lymphocytes Percent Manual 12 % (20-40); Metamyelocytes Absolute 0.5 X10*3/uL; Metamyelocytes Percent 3 %; Monocytes Percent Manual 12 % (2-11); Myelocytes Absolute 0.3 X10*/uL; Myelocytes Percent 2 %; Neutrophils Absolute Manual 11.9 X10*3/uL (2.0-8.3); Neutrophils Percent Manual 61 % (45-73); Nucleated Red Blood Cells 2 /100WBC (0-0); Promyelocytes Absolute 0.2 X10*3/uL; Promyelocytes Percent 1 %; RBC Morphology NOTED
[2023-08-23 05:40] LABS: Platelet Estimate NORMAL (NORMAL); Polychromasia 2+ (3-5) /OIF; Toxic Granulation PRESENT; Toxic Vacuolation PRESENT
[2023-08-23 05:41] LABS: Glucose Random 477 mg/dL (60-115); Large Platelet PRESENT; Platelet Morphology Comment NOTED
[2023-08-23] MEDS: Insulin Lispro 100 UNIT/ML 3 ML VIAL SUBCUT ×5 (06:09→23:11)
[2023-08-23] MEDS: Albuterol/Iprat 2.5/0.5MG 3 ML AMPUL.NEB INHALE ×4 (07:49→19:18)
[2023-08-23] MEDS: Furosemide 40 MG/4 ML VIAL IVPUSH ×2 (08:32→17:02)
[2023-08-23] MEDS: Famotidine/PF 20 MG/2 ML VIAL IVPUSH (08:32)
[2023-08-23] MEDS: dilTIAZem HCL 60 MG TABLET PO ×4 (08:33→20:20)
[2023-08-23] MEDS: clonazePAM 1 MG TABLET PO ×2 (08:33→20:19)
[2023-08-23] MEDS: methADONE HCl 10 MG TABLET 20 MG PO ×2 (08:33→20:20)
[2023-08-23] MEDS: lamoTRIgine 25 MG TABLET 150 MG PO ×2 (08:33→20:19)
[2023-08-23] MEDS: 0.9 % Sodium Chloride Flush 3 ML SYRINGE IVFLUSH ×3 (08:34→20:15)
[2023-08-23] MEDS: Insulin Glargine,Hum.rec.anlog 100 UNIT/ML 10 ML VIAL 30 UNIT SUBCUT (08:39)
[2023-08-23 08:58] LABS: Glucose, Whole Blood 409 mg/dL (60-115)
[2023-08-23] MEDS: Insulin Lispro 100 UNIT/ML 3 ML VIAL 15 UNIT SUBCUT (09:12)
[2023-08-23] MEDS: Chlorhexidine Gluc Oral Rinse 15 ML MOUTHWASH BUCCAL ×3 (09:33→20:22)
[2023-08-23] MEDS: Lactulose 20 GM/30 ML SOLUTION PO ×3 (09:34→20:22)
[2023-08-23 09:50] LABS: Glucose, Whole Blood 402 mg/dL (60-115)
[2023-08-23 11:26] LABS: Glucose, Whole Blood 408 mg/dL (60-115)
[2023-08-23] MEDS: Calcitonin,Salmon,Synth Nasal 3.7 ML BOTTLE 1 SPRAY NOSTRIL-B (11:51)
--- NOTE | 2023-08-23 12:11 | P.PNCC_ITS ---
Subjective Subjective Date of Service: 08/23/23 Critical Care Time (minutes): 35 Comment: Midline was taken off yesterday due to leakage Blood sugars are on the higher side due to high amount of dextrose in the PPN Continues to be on ventilator support Following commands Physical Exam 2 Vital Signs: Vital Signs: Last Vital Signs Temp 99.1 F 08/23/23 11:00 Pulse 99 08/23/23 11:17 Resp 29 H 08/23/23 11:17 BP 106/54 L 08/23/23 11:00 Pulse Ox 90 L 08/23/23 11:00 O2 Del Method Mechanical Ventil ation 08/23/23 11:00 O2 Flow Rate 90 08/05/23 15:52 FiO2 50 08/23/23 11:47 BMI result Body Mass Index 38.2 General: Somewhat in acute distress, she is normal appearing Nutritional Appearance: well nourished and overweight Eyes: appearance normal, both eyes and all related structures; Alignment and Position: alignment normal and position normal Neck: No lymphadenopathy, no thyromegaly Resp: bilateral air entry equal, occasional added sounds present Cardio: Regular rate, regular rhythm; Heart sounds: S1 normal heart sound present and S2 normal heart sound present GI: soft, nontender, no guarding, no hepatosplenomegaly : bladder normal to inspection, bladder normal to palpation, no renal angle tenderness Skin: no rashes or lesions noted and elasticity normal Neuro: oriented to person, oriented to place, oriented to time and moves all extremities Objective Data Labs 08/23/23 04:56 08/23/23 04:56 Labs: Laboratory Results - last 24 hr 08/22/23 08/22/23 08/22/23 12:19 17:26 23:45 WBC RBC Hgb Hct MCV MCH MCHC RDW Plt Count MPV Immature Gran % (Auto) Neut % (Auto) Lymph % (Auto) [place] % (Auto) Eos % (Auto) Baso % (Auto) Lymph # (Auto) [place] # (Auto) Eos # (Auto) Baso # (Auto) Abs Immat Gran (auto) Absolute Neuts (auto) Absolute Nucleated RBC Nucleated RBC % (auto) Neutrophils % (Manual) Band Neutrophils % Lymphocytes % (Manual) Monocytes % (Manual) Metamyelocytes % Myelocytes % Promyelocytes % Abs Neuts (Manual) Lymphocytes # (Manual) Monocytes # (Manual) Metamyelocytes # Myelocytes # Promyelocytes # Nucleated RBCs Toxic Granulation Toxic Vacuolation Platelet Estimate Large Platelets Plt Morphology Comment RBC Morphology Polychromasia VBG pH VBG pCO2 VBG pO2 VBG HCO3 VBG O2 Saturation VBG Base Excess Sodium Potassium Chloride Carbon Dioxide Anion Gap BUN Creatinine Estim Creat Clear Calc Estimated GFR POC Glucose 371 H* 300 H 385 H* Random Glucose Calcium Phosphorus Magnesium Total Bilirubin AST ALT Alkaline Phosphatase Total Protein Albumin Triglycerides 08/23/23 08/23/23 08/23/23 04:56 08:54 09:46 WBC 17.0 H RBC 3.21 L Hgb 9.3 L Hct 31.5 L MCV 98.1 H MCH 29.0 MCHC 29.5 L RDW 17.2 H Plt Count 196 D MPV 10.5 Immature Gran % (Auto) Cancelled Neut % (Auto) Cancelled Lymph % (Auto) Cancelled [place] % (Auto) Cancelled Eos % (Auto) Cancelled Baso % (Auto) Cancelled Lymph # (Auto) Cancelled [place] # (Auto) Cancelled Eos # (Auto) Cancelled Baso # (Auto) Cancelled Abs Immat Gran (auto) Cancelled Absolute Neuts (auto) Cancelled Absolute Nucleated RBC 0.430 H Nucleated RBC % (auto) 2.5 H Neutrophils % (Manual) 61 Band Neutrophils % 9 H Lymphocytes % (Manual) 12 L Monocytes % (Manual) 12 H Metamyelocytes % 3 Myelocytes % 2 Promyelocytes % 1 Abs Neuts (Manual) 11.9 H Lymphocytes # (Manual) 2.0 Monocytes # (Manual) 2.0 H Metamyelocytes # 0.5 Myelocytes # 0.3 Promyelocytes # 0.2 Nucleated RBCs 2 H Toxic Granulation PRESENT Toxic Vacuolation PRESENT Platelet Estimate NORMAL Large Platelets PRESENT Plt Morphology Comment NOTED RBC Morphology NOTED Polychromasia 2+ (3-5) VBG pH 7.46 H VBG pCO2 55 VBG pO2 51 VBG HCO3 39 H VBG O2 Saturation 80.0 VBG Base Excess 13.7 Sodium 139 Potassium 4.2 Chloride 97 Carbon Dioxide 30 H Anion Gap 16 BUN 30 H Creatinine 1.10 Estim Creat Clear Calc 58.6 Estimated GFR 52 POC Glucose 409 H* 402 H* Random Glucose 477 H* Calcium 10.0 Phosphorus 4.2 Magnesium 1.9 Total Bilirubin 0.4 AST 19 ALT 20 Alkaline Phosphatase 83 Total Protein 6.7 Albumin 2.9 L Triglycerides 228 H 08/23/23 11:22 WBC RBC Hgb Hct MCV MCH MCHC RDW Plt Count MPV Immature Gran % (Auto) Neut % (Auto) Lymph % (Auto) [place] % (Auto) Eos % (Auto) Baso % (Auto) Lymph # (Auto) [place] # (Auto) Eos # (Auto) Baso # (Auto) Abs Immat Gran (auto) Absolute Neuts (auto) Absolute Nucleated RBC Nucleated RBC % (auto) Neutrophils % (Manual) Band Neutrophils % Lymphocytes % (Manual) Monocytes % (Manual) Metamyelocytes % Myelocytes % Promyelocytes % Abs Neuts (Manual) Lymphocytes # (Manual) Monocytes # (Manual) Metamyelocytes # Myelocytes # Promyelocytes # Nucleated RBCs Toxic Granulation Toxic Vacuolation Platelet Estimate Large Platelets Plt Morphology Comment RBC Morphology Polychromasia VBG pH VBG pCO2 VBG pO2 VBG HCO3 VBG O2 Saturation VBG Base Excess Sodium Potassium Chloride Carbon Dioxide Anion Gap BUN Creatinine Estim Creat Clear Calc Estimated GFR POC Glucose 408 H* Random Glucose Calcium Phosphorus Magnesium Total Bilirubin AST ALT Alkaline Phosphatase Total Protein Albumin Triglycerides Microbiology Microbiology Results: Microbiology 08/22/23 11:42 Urine Catheterized - Adan Catheter Urine Culture - Final No growth. 08/22/23 11:35 Neck Gram Stain - Final 08/22/23 11:35 Neck Routine Culture - Preliminary Culture in progress. 08/21/23 17:34 Tracheal Aspirate Gram Stain - Final 08/21/23 17:34 Tracheal Aspirate Sputum Culture - Preliminary Culture in progress. 08/19/23 09:51 Blood - Venous Blood Culture - Preliminary No growth after 48 hours. 08/19/23 09:51 Blood - Venous Blood Culture - Preliminary No growth after 48 hours. 08/03/23 16:38 Sputum - Expectorated Gram Stain - Final 08/03/23 16:38 Sputum - Expectorated Sputum Culture - Final Aspergillus fumigatus 08/02/23 14:20 Blood - Venous Blood Culture - Final No growth after 5 days. 08/02/23 13:36 Blood - Venous Blood Culture - Final No growth after 5 days. Progress Note: A&P Assessment and plan (1) Status post tracheostomy: Status: Acute (2) Status post insertion of percutaneous endoscopic gastrostomy (PEG) tube: Status: Acute (3) Encephalopathy acute: Status: Acute (4) Opioid dependence: Status: Acute (5) Type 2 diabetes mellitus: Status: Acute (6) Diastolic heart failure: Status: Acute Plan Neuro: Continue methadone 20mg BID today. Her home dose of methadone 50 mg daily and she is off of it for few days. QT interval normal, 450 Continue home clonazepam 1mg BID and ambien to sleep mental status has imrpoved, following all commands and answering questions appropriately Acute on chronic respiratory failure: Admitted for acute exacerbation of COPD Currently she is status post tracheostomy tube placement We placed her on a controlled mode on the ventilator overnight for resting, change her back to a pressure support this morning, so far tolerating well. PEG tube dislodgement: PEG tube replaced , continues to have some leak Medications allowed through G-tube Atrial fibrillation with RVR: Currently in sinus rhythm , rate normal Oral diltiazem continued On metoprolol q.4 hours Heart failure with preserved ejection fraction: Diuresis with Lasix to keep fluid balance even Continue metoprolol and diltiazem Hyperglycemia: Secondary to dextrose content in the TPN which will be changed with the next bag of PPN Sliding scale insulin Lantus changed to 30 units b.i.d. today, watch for hypoglycemia with a new bag of PPN overnight Sliding scale insulin as needed Lines: Peripheral off of Adan catheter Prophylaxis: Lovenox, pantoprazole Quality Stroke Does the patient have a stroke diagnosis?: No VTE Prior VTE?: No VTE Risk Level:: Medical - moderate - high VTE Device Contraindication: Treatment Not Indicated VTE Drug Contraindication: N/A - Med Ordered
[2023-08-23 16:06] LABS: Glucose, Whole Blood 235 mg/dL (60-115)
[2023-08-23] MEDS: Parenteral Nutrition 1,680 ML 70 ML IV (20:18)
[2023-08-23 21:06] LABS: Glucose, Whole Blood 211 mg/dL (60-115)
--- NOTE | 2023-08-23 21:45 | PC.NURSE ---
Addendum entered by Paris Garg RN 08/24/23 01:10: 23:00 POC now 225. Covering MAUREEN Mari notified in-person with verbal orders received to continue with 4 units ISS per MAR and recheck POC in two hours. 01:00: POC now 205. PA verbal orders to stop q2hr checks and instead reassess on morning labs per previous q6hr POC orders. Original Note: Patient's PPN was on hold on assuming care at 19:00 this evening due to containing dextrose and pt having consistently high POCs. This evening's new bag of PPN has no dextrose and was initiated. Plan discussed with MAUREEN Mari with verbal orders at 21:00 for q2HR POCs overnight. Lantus dose cut in half by MAUREEN to 15 units to start tonight. Will continue to monitor.
[2023-08-23] MEDS: Insulin Glargine,Hum.rec.anlog 100 UNIT/ML 10 ML VIAL 15 UNIT SUBCUT (21:51)
[2023-08-23 23:03] LABS: Glucose, Whole Blood 225 mg/dL (60-115)
[2023-08-23] MEDS: Zolpidem Tartrate 5 MG TABLET PO (23:11)
[2023-08-24] VITALS (40 sets, daily range): BP systolic 84–137; BP diastolic 46–98; PULSE 73–104; RESP 15–32; TEMP 35.1–38; O2SAT 89–99; BMI 37.3
[2023-08-24] MEDS: Heparin Sodium,Porcine 5,000 UNIT/ML VIAL 5000 UNIT SUBCUT ×3 (00:57→16:00)
[2023-08-24 01:05] LABS: Glucose, Whole Blood 205 mg/dL (60-115)
[2023-08-24 05:07] LABS: VBG Base Excess 11.9 mmol/L; VBG HCO3 36 mmol/L (22-26); VBG pCO2 49 mmHg; VBG pH 7.48 (7.32-7.43); VBG pO2 40 mmHg
[2023-08-24 05:09] LABS: Venous Blood Gas Refer to POC result
[2023-08-24 05:10] LABS: Hematocrit 34.5 % (37.0-47.0); Hemoglobin 9.9 g/dl (12.0-16.0); Mean Corpuscular HGB Conc 28.7 g/dl (31.0-35.0); Mean Corpuscular Hemoglobin 28.5 pg (27.0-33.0); Mean Corpuscular Volume 99.4 fL (80.0-98.0); Mean Platelet Volume 9.9 fL (9.4-12.3); NRBC Pct Auto 3.5 /100WBC (0.0-0.2); Platelet Count 311 X10*3/uL (160-400); Red Blood Count 3.47 X10*6/uL (4.20-5.50); Red Cell Distribution Width 17.8 % (11.0-16.0); WBC ABN SCTR FOR CBC 1
[2023-08-24 05:13] LABS: White Blood Count 13.9 X10*3/uL (4.8-10.8)
[2023-08-24 05:32] LABS: Alanine Aminotransferase 19 U/L (0-31); Albumin Level 2.8 g/dL (3.5-5.0); Alkaline Phosphatase 81 U/L (39-117); Anion Gap 16 (12-20); Aspartate Amino Transferase 31 U/L (5-31); Bilirubin Total 0.3 mg/dL (0.0-1.0); Blood Urea Nitrogen 38 mg/dL (9-16); Calcium 9.9 mg/dL (8.4-10.2); Carbon Dioxide 30 mmol/L (22-29); Chloride 99 mmol/L (96-108); Creatinine Clr Calc Pharmacy 52.4; Estimated Glomerular Filt Rate 46; Glucose Random 235 mg/dL (60-115); Magnesium 1.8 mg/dL (1.6-2.6); Phosphorus 4.4 mg/dL (2.7-4.5); Potassium 4.9 mmol/L (3.3-5.1); Sodium 140 mmol/L (135-145); Total Protein 7.3 g/dL (6.5-8.0)
[2023-08-24 05:36] LABS: Atypical Lymph Absolute Manual 0.1 x10*3/uL; Atypical Lymphs Percent Manual 1 % (0-6); Band Neutrophils Percent 10 % (3-5); Lymphocytes Absolute Manual 1.3 X10*3/uL (1.2-4.9); Lymphocytes Percent Manual 9 % (20-40); Metamyelocytes Percent 7 %; Monocytes Absolute Manual 0.4 X10*3/uL (0.1-1.2); Monocytes Percent Manual 3 % (2-11); Myelocytes Absolute 0.1 X10*/uL; Myelocytes Percent 1 %; Neutrophils Percent Manual 69 % (45-73); Nucleated Red Blood Cells 5 /100WBC (0-0)
[2023-08-24 05:38] LABS: Hypochromasia 1+ (5-14) /OIF; Platelet Estimate NORMAL (NORMAL); Platelet Morphology Comment NORMAL; Polychromasia 2+ (3-5) /OIF; RBC Morphology NOTED; Tear Drop Cells 1+ (0-2) /OIF
[2023-08-24 05:39] LABS: Schistocytes 1+ (0-2) /OIF; Spherocytes 1+ (0-2) /OIF
[2023-08-24] MEDS: Insulin Lispro 100 UNIT/ML 3 ML VIAL SUBCUT ×3 (06:11→17:51)
[2023-08-24] MEDS: Metoprolol Tartrate 25 MG TABLET PO ×3 (06:11→21:31)
[2023-08-24] MEDS: Albuterol/Iprat 2.5/0.5MG 3 ML AMPUL.NEB INHALE ×4 (08:53→20:04)
[2023-08-24] MEDS: 0.9 % Sodium Chloride Flush 3 ML SYRINGE IVFLUSH ×2 (09:05→15:44)
[2023-08-24] MEDS: Insulin Glargine,Hum.rec.anlog 100 UNIT/ML 10 ML VIAL 30 UNIT SUBCUT (09:06)
[2023-08-24] MEDS: dilTIAZem HCL 60 MG TABLET PO ×4 (09:07→21:31)
[2023-08-24] MEDS: Famotidine/PF 20 MG/2 ML VIAL IVPUSH (09:07)
[2023-08-24] MEDS: Furosemide 40 MG/4 ML VIAL IVPUSH ×2 (09:07→17:51)
[2023-08-24] MEDS: Chlorhexidine Gluc Oral Rinse 15 ML MOUTHWASH BUCCAL ×3 (09:07→21:22)
[2023-08-24] MEDS: Lactulose 20 GM/30 ML SOLUTION PO ×3 (09:07→21:22)
[2023-08-24] MEDS: clonazePAM 1 MG TABLET PO ×2 (09:07→21:25)
[2023-08-24] MEDS: lamoTRIgine 25 MG TABLET 150 MG PO ×2 (09:07→21:25)
[2023-08-24] MEDS: methADONE HCl 10 MG TABLET 20 MG PO ×2 (09:08→21:23)
[2023-08-24] MEDS: Calcitonin,Salmon,Synth Nasal 3.7 ML BOTTLE 1 SPRAY NOSTRIL-B (09:08)
[2023-08-24 11:13] LABS: Glucose, Whole Blood 224 mg/dL (60-115)
--- NOTE | 2023-08-24 13:59 | P.PNCC_ITS ---
Subjective Subjective Date of Service: 08/24/23 Critical Care Time (minutes): 40 Physical Exam 2 Vital Signs: Vital Signs: Last Vital Signs Temp 99.0 F 08/24/23 13:00 Pulse 102 H 08/24/23 13:00 Resp 21 H 08/24/23 13:00 BP 121/58 L 08/24/23 13:00 Pulse Ox 91 L 08/24/23 13:00 O2 Del Method Mechanical Ventil ation 08/24/23 13:00 O2 Flow Rate 90 08/05/23 15:52 FiO2 40 08/24/23 13:00 BMI result Body Mass Index 37.3 General: ill appearing and tired appearing Nutritional Appearance: well nourished and overweight Eyes: appearance normal, both eyes and all related structures; Alignment and Position: alignment normal and position normal Neck: No lymphadenopathy, no thyromegaly Resp: bilateral air entry equal, occasional added sounds present Cardio: Regular rate, regular rhythm; Heart sounds: S1 normal heart sound present and S2 normal heart sound present GI: soft, nontender, no guarding, no hepatosplenomegaly : bladder normal to inspection, bladder normal to palpation, no renal angle tenderness Skin: no rashes or lesions noted and elasticity normal Neuro: oriented to person, oriented to place, oriented to time and moves all extremities Objective Data Labs 08/24/23 04:51 08/24/23 04:51 Labs: Laboratory Results - last 24 hr 08/23/23 08/23/23 08/23/23 15:57 21:00 22:59 WBC RBC Hgb Hct MCV MCH MCHC RDW Plt Count MPV Immature Gran % (Auto) Neut % (Auto) Lymph % (Auto) [place] % (Auto) Eos % (Auto) Baso % (Auto) Lymph # (Auto) [place] # (Auto) Eos # (Auto) Baso # (Auto) Abs Immat Gran (auto) Absolute Neuts (auto) Absolute Nucleated RBC Nucleated RBC % (auto) Neutrophils % (Manual) Band Neutrophils % Lymphocytes % (Manual) Atypical Lymphs % (Man) Monocytes % (Manual) Metamyelocytes % Myelocytes % Abs Neuts (Manual) Lymphocytes # (Manual) Atyp Lymphs # (Manual) Monocytes # (Manual) Metamyelocytes # Myelocytes # Nucleated RBCs Platelet Estimate Plt Morphology Comment RBC Morphology Polychromasia Hypochromasia Spherocytes Tear Drop Cells Schistocytes VBG pH VBG pCO2 VBG pO2 VBG HCO3 VBG O2 Saturation VBG Base Excess Sodium Potassium Chloride Carbon Dioxide Anion Gap BUN Creatinine Estim Creat Clear Calc Estimated GFR POC Glucose 235 H 211 H 225 H Random Glucose Calcium Phosphorus Magnesium Total Bilirubin AST ALT Alkaline Phosphatase Total Protein Albumin 08/24/23 08/24/23 08/24/23 00:57 04:51 04:59 WBC 13.9 H RBC 3.47 L Hgb 9.9 L Hct 34.5 L MCV 99.4 H MCH 28.5 MCHC 28.7 L RDW 17.8 H Plt Count 311 D MPV 9.9 Immature Gran % (Auto) Cancelled Neut % (Auto) Cancelled Lymph % (Auto) Cancelled [place] % (Auto) Cancelled Eos % (Auto) Cancelled Baso % (Auto) Cancelled Lymph # (Auto) Cancelled [place] # (Auto) Cancelled Eos # (Auto) Cancelled Baso # (Auto) Cancelled Abs Immat Gran (auto) Cancelled Absolute Neuts (auto) Cancelled Absolute Nucleated RBC 0.480 H Nucleated RBC % (auto) 3.5 H Neutrophils % (Manual) 69 Band Neutrophils % 10 H Lymphocytes % (Manual) 9 L Atypical Lymphs % (Man) 1 Monocytes % (Manual) 3 Metamyelocytes % 7 Myelocytes % 1 Abs Neuts (Manual) 11.0 H Lymphocytes # (Manual) 1.3 Atyp Lymphs # (Manual) 0.1 Monocytes # (Manual) 0.4 Metamyelocytes # 1.0 Myelocytes # 0.1 Nucleated RBCs 5 H Platelet Estimate NORMAL Plt Morphology Comment NORMAL RBC Morphology NOTED Polychromasia 2+ (3-5) Hypochromasia 1+ (5-14) Spherocytes 1+ (0-2) Tear Drop Cells 1+ (0-2) Schistocytes 1+ (0-2) VBG pH 7.48 H VBG pCO2 49 VBG pO2 40 VBG HCO3 36 H VBG O2 Saturation 67.0 VBG Base Excess 11.9 Sodium 140 Potassium 4.9 Chloride 99 Carbon Dioxide 30 H Anion Gap 16 BUN 38 H Creatinine 1.23 Estim Creat Clear Calc 52.4 Estimated GFR 46 POC Glucose 205 H Random Glucose 235 H Calcium 9.9 Phosphorus 4.4 Magnesium 1.8 Total Bilirubin 0.3 AST 31 ALT 19 Alkaline Phosphatase 81 Total Protein 7.3 Albumin 2.8 L 08/24/23 11:10 WBC RBC Hgb Hct MCV MCH MCHC RDW Plt Count MPV Immature Gran % (Auto) Neut % (Auto) Lymph % (Auto) [place] % (Auto) Eos % (Auto) Baso % (Auto) Lymph # (Auto) [place] # (Auto) Eos # (Auto) Baso # (Auto) Abs Immat Gran (auto) Absolute Neuts (auto) Absolute Nucleated RBC Nucleated RBC % (auto) Neutrophils % (Manual) Band Neutrophils % Lymphocytes % (Manual) Atypical Lymphs % (Man) Monocytes % (Manual) Metamyelocytes % Myelocytes % Abs Neuts (Manual) Lymphocytes # (Manual) Atyp Lymphs # (Manual) Monocytes # (Manual) Metamyelocytes # Myelocytes # Nucleated RBCs Platelet Estimate Plt Morphology Comment RBC Morphology Polychromasia Hypochromasia Spherocytes Tear Drop Cells Schistocytes VBG pH VBG pCO2 VBG pO2 VBG HCO3 VBG O2 Saturation VBG Base Excess Sodium Potassium Chloride Carbon Dioxide Anion Gap BUN Creatinine Estim Creat Clear Calc Estimated GFR POC Glucose 224 H Random Glucose Calcium Phosphorus Magnesium Total Bilirubin AST ALT Alkaline Phosphatase Total Protein Albumin Microbiology Microbiology Results: Microbiology 08/19/23 09:51 Blood - Venous Blood Culture - Final No growth after 5 days. 08/19/23 09:51 Blood - Venous Blood Culture - Final No growth after 5 days. 08/22/23 11:35 Neck Gram Stain - Final 08/22/23 11:35 Neck Routine Culture - Preliminary 08/21/23 17:34 Tracheal Aspirate Gram Stain - Final 08/21/23 17:34 Tracheal Aspirate Sputum Culture - Final Corynebacterium species 08/22/23 11:42 Urine Catheterized - Adan Catheter Urine Culture - Final No growth. 08/03/23 16:38 Sputum - Expectorated Gram Stain - Final 08/03/23 16:38 Sputum - Expectorated Sputum Culture - Final Aspergillus fumigatus 08/02/23 14:20 Blood - Venous Blood Culture - Final No growth after 5 days. 08/02/23 13:36 Blood - Venous Blood Culture - Final No growth after 5 days. Progress Note: A&P Assessment and plan (1) Encephalopathy acute: Status: Acute (2) Type 2 diabetes mellitus: Status: Acute (3) Diastolic heart failure: Status: Acute (4) Acute exacerbation of chronic obstructive airways disease: Status: Acute (5) Acute on chronic respiratory failure with hypoxia and hypercapnia: Status: Acute (6) CHITO (obstructive sleep apnea): Status: Acute Assessment and Plan: Neuro: Continue methadone 20mg BID today. Her home dose of methadone 50 mg daily and she is off of it for few days. QT interval normal, 450 Continue home clonazepam 1mg BID and ambien to sleep mental status has imrpoved, following all commands and answering questions appropriately Acute on chronic respiratory failure: Admitted for acute exacerbation of COPD Currently she is status post tracheostomy tube placement She tolerated pressor support trials for over 6 hours yesterday, today she has been downgraded to trach collar and so far is tolerating trach collar very well PEG tube dislodgement: PEG tube replaced , continues to have some leak Medications allowed through G-tube PPN for nutrition Atrial fibrillation with RVR: Currently in sinus rhythm , rate normal Oral diltiazem continued On metoprolol q.4 hours Heart failure with preserved ejection fraction: Diuresis with Lasix to keep fluid balance even Continue metoprolol and diltiazem Hyperglycemia: Blood sugars better after taking off the dextrose in PPN Sliding scale insulin as needed Lantus 30 units b.i.d. Sliding scale insulin as needed Lines: Peripheral off of Adan catheter Prophylaxis: Lovenox, pantoprazole Quality Stroke Does the patient have a stroke diagnosis?: No VTE Prior VTE?: No VTE Risk Level:: Medical - moderate - high VTE Device Contraindication: Treatment Not Indicated VTE Drug Contraindication: N/A - Med Ordered
[2023-08-24 17:48] LABS: Glucose, Whole Blood 204 mg/dL (60-115)
[2023-08-24 21:13] LABS: Glucose, Whole Blood 216 mg/dL (60-115)
[2023-08-24] MEDS: Parenteral Nutrition 1,680 ML 70 ML IV (21:20)
[2023-08-24] MEDS: Insulin Glargine,Hum.rec.anlog 100 UNIT/ML 10 ML VIAL 20 UNIT SUBCUT (21:23)
[2023-08-25] VITALS (35 sets, daily range): BP systolic 85–147; BP diastolic 41–80; PULSE 76–116; RESP 16–26; TEMP 34.4–38.2; O2SAT 87–97; BMI 37.4
[2023-08-25 00:04] LABS: Glucose, Whole Blood 190 mg/dL (60-115)
[2023-08-25] MEDS: Heparin Sodium,Porcine 5,000 UNIT/ML VIAL 5000 UNIT SUBCUT ×3 (00:14→18:16)
[2023-08-25] MEDS: 0.9 % Sodium Chloride Flush 3 ML SYRINGE IVFLUSH ×3 (00:14→16:12)
[2023-08-25] MEDS: Insulin Lispro 100 UNIT/ML 3 ML VIAL SUBCUT ×4 (00:15→18:16)
[2023-08-25 05:41] LABS: Glucose, Whole Blood 177 mg/dL (60-115)
[2023-08-25] MEDS: Metoprolol Tartrate 12.5 MG HALFTAB PO (05:54)
--- NOTE | 2023-08-25 07:05 | P.PNCC_ITS ---
Subjective Subjective Date of Service: 08/25/23 Critical Care Time (minutes): 60 Physical Exam 2 Vital Signs: Vital Signs: Last Vital Signs Temp 99.1 F 08/25/23 06:00 Pulse 94 08/25/23 06:00 Resp 19 08/25/23 06:00 BP 103/68 08/25/23 06:00 Pulse Ox 93 08/25/23 06:00 O2 Del Method Mechanical Ventil ation 08/25/23 06:00 O2 Flow Rate 90 08/05/23 15:52 FiO2 40 08/25/23 06:00 BMI result Body Mass Index 37.4 Const: Other: appreciable morbid obesity General: cooperative, healthy appearing, comfortable, no acute distress, alert, awake and Physically active Orientation/consciousness: oriented to person and oriented to place HEENT: Other: appreciable tracheostomy, midline, clean, dry, intact Head: Yes normal to inspection, Yes No palpable skull fracture present, No normocephalic and No atraumatic Eyes: General: appearance normal, both eyes and all related structures Neck: Other: as described above Neck: Yes full ROM, Yes no meningeal signs, Yes trachea midline and Yes supple Chest: Chest palpation & inspection: normal inspection of the chest Resp: Other: appreciable rhonchi throughout; no appreciable rales, wheezing Cardio: Rate: regular rate Rhythm: regular rhythm GI: Other: appreciable PEG tube, midline, w/ overlying bandage Inspection: Yes normal to inspection, No Abdominal wall edema and No distended : External Female Exam: normal external appearance Skin: General skin exam: no rashes or lesions noted Neuro: General: oriented to person, oriented to place, tone normal, moves all extremities, no meningeal signs and no focal motor deficits Extrem: General: Yes normal to inspection, Yes full ROM, Yes capillary refill normal and Yes no clubbing, cyanosis or edema Psych: Other: some appreciable anxiety, verbally re-directable Appearance: grossly normal Objective Data Labs 08/24/23 04:51 08/24/23 04:51 Labs: Laboratory Results - last 24 hr 08/24/23 08/24/23 08/24/23 11:10 17:45 21:10 POC Glucose 224 H 204 H 216 H 08/24/23 08/25/23 23:55 05:37 POC Glucose 190 H 177 H Microbiology Microbiology Results: Microbiology 08/19/23 09:51 Blood - Venous Blood Culture - Final No growth after 5 days. 08/19/23 09:51 Blood - Venous Blood Culture - Final No growth after 5 days. 08/22/23 11:35 Neck Gram Stain - Final 08/22/23 11:35 Neck Routine Culture - Preliminary 08/21/23 17:34 Tracheal Aspirate Gram Stain - Final 08/21/23 17:34 Tracheal Aspirate Sputum Culture - Final Corynebacterium species 08/22/23 11:42 Urine Catheterized - Adan Catheter Urine Culture - Final No growth. 08/03/23 16:38 Sputum - Expectorated Gram Stain - Final 08/03/23 16:38 Sputum - Expectorated Sputum Culture - Final Aspergillus fumigatus 08/02/23 14:20 Blood - Venous Blood Culture - Final No growth after 5 days. 08/02/23 13:36 Blood - Venous Blood Culture - Final No growth after 5 days. Progress Note: A&P Assessment and plan (1) Status post tracheostomy: Status: Acute (2) Status post insertion of percutaneous endoscopic gastrostomy (PEG) tube: Status: Acute (3) Type 2 diabetes mellitus: Status: Acute (4) Acute on chronic respiratory failure with hypoxia and hypercapnia: Status: Acute (5) CHITO (obstructive sleep apnea): Status: Acute (6) Obesity hypoventilation syndrome: Status: Acute (7) COPD (chronic obstructive pulmonary disease): Status: Acute Plan Patient is a 53 Y F w/ metabolic syndrome c/b morbid obesity, tobacco use, COPD, OHS, CHITO, c/b chronic mixed respiratory failure, and methadone use, reportedly on BiPAP PM, well-known to our institution d/t numerous admissions d/t acute on chronic respiratory failure, most recent admission admitted 08/01, c/b intubation, failed extubation, s/p trach/PEG on 08/11 N: anxiety, on home clonazepam; insomnia, on home zolpidem CV: no acute issues; atrial fibrillation, on home diltiazem R: COPD, OHS, CHITO, c/b acute on chronic mixed respiratory failure, s/p trach on 08/11; wean ventilator as tolerated GI: obesity; s/p PEG on 08/11, c/b displacement; PPN; appreciate surgery recommendations : no acute issues H: no acute issues; chemical DVT prophylaxis ID: no acute issues E: TIIDM, c/b hyperglycemia; insulin regimen S: opioid dependence, on home methadone; awaiting facility placement Quality Stroke Does the patient have a stroke diagnosis?: No VTE Prior VTE?: No VTE Risk Level:: Medical - moderate - high VTE Device Contraindication: Treatment Not Indicated VTE Drug Contraindication: N/A - Med Ordered
[2023-08-25] MEDS: Albuterol/Iprat 2.5/0.5MG 3 ML AMPUL.NEB INHALE (07:57)
[2023-08-25] MEDS: Chlorhexidine Gluc Oral Rinse 15 ML MOUTHWASH BUCCAL ×3 (09:13→21:55)
[2023-08-25] MEDS: Nystatin Oral Susp 500,000 UNIT/5 ML ORAL.SUSP 100000 UNIT BUCCAL ×3 (09:13→21:56)
[2023-08-25] MEDS: Lactulose 20 GM/30 ML SOLUTION PO (09:13)
[2023-08-25] MEDS: Furosemide 40 MG/4 ML VIAL IVPUSH ×2 (09:14→18:15)
[2023-08-25] MEDS: methADONE HCl 10 MG TABLET 20 MG PO ×2 (09:14→21:56)
[2023-08-25] MEDS: Famotidine/PF 20 MG/2 ML VIAL IVPUSH (09:14)
[2023-08-25] MEDS: Insulin Glargine,Hum.rec.anlog 100 UNIT/ML 10 ML VIAL 30 UNIT SUBCUT (09:14)
[2023-08-25] MEDS: clonazePAM 1 MG TABLET PO (09:15)
[2023-08-25] MEDS: dilTIAZem HCL 60 MG TABLET PO ×4 (09:15→21:55)
[2023-08-25] MEDS: Calcitonin,Salmon,Synth Nasal 3.7 ML BOTTLE 1 SPRAY NOSTRIL-B (09:16)
[2023-08-25] MEDS: lamoTRIgine 25 MG TABLET 150 MG PO ×2 (09:29→21:56)
[2023-08-25 09:45] LABS: Alanine Aminotransferase 16 U/L (0-31); Albumin Level 2.9 g/dL (3.5-5.0); Alkaline Phosphatase 84 U/L (39-117); Anion Gap 20 (12-20); Aspartate Amino Transferase 23 U/L (5-31); Bilirubin Total 0.3 mg/dL (0.0-1.0); Blood Urea Nitrogen 50 mg/dL (9-16); Calcium 10.2 mg/dL (8.4-10.2); Carbon Dioxide 29 mmol/L (22-29); Chloride 100 mmol/L (96-108); Creatinine Clr Calc Pharmacy 52.6; Estimated Glomerular Filt Rate 47; Glucose Random 146 mg/dL (60-115); Magnesium 2.2 mg/dL (1.6-2.6); Phosphorus 3.4 mg/dL (2.7-4.5); Potassium 4.8 mmol/L (3.3-5.1); Sodium 144 mmol/L (135-145); Total Protein 7.2 g/dL (6.5-8.0); Triglycerides 277 mg/dL (<150)
--- NOTE | 2023-08-25 10:51 | MHC.CLN ---
F/U NEW PEG IS LEAKING AND UNABLE TO UTILIZE FOR FEED AT THIS TIME-SX F/U INPUT APPRECIATED PT CONTINUES TO RECEIVE PPN-MD HELD DEXTROSE OVER WEEKEND R/T ELEVATED BS REVIEWED LABS-TRIGS REMAIN ELEVATED DISCUSSED WITH PHARMACY RECOMMEND PPN AT 70ML/HR TO PROVIDE 857KCALS, 168G DEXTROSE, 71G PROTEIN HOLD LIPIDS TODAY REPLETE LYTES NEEDED, CONTINUE TO CHECK TRIGS CONSULT RD IF TUBE FEEDING CAN BE RE-STARTED
--- NOTE | 2023-08-25 11:19 | PM.EVENT ---
Event Note Date of Service: 08/25/23 Event Note: of note, Ms. Larios tolerated trach collar trials for many hours 06/ AM, was placed on ventilator support PM; Ms. Larios placed back on trach collar this AM, tolerating well, without signs, symptoms of respiratory failure Time Spent With Patient Time: Total time managing care of this patient today ____ minutes.
--- NOTE | 2023-08-25 11:25 | MHC.CM.PN ---
Pt making clinical progress w/trach collar trials currently able to tolderate 5-6 hours. BG are closing in on the 200 kacie and her leaking peg tube should close in the next few days as the site heals (waiting for surgeon to document this) Clinical updates sent to [facility] for possible transfer on Friday. Waiting for LTACH response. Will contact pt's HCP, Tay and significant other Drew to update. CM to follow.
[2023-08-25 12:14] LABS: Glucose, Whole Blood 156 mg/dL (60-115)
--- NOTE | 2023-08-25 12:50 | P.DS_ITS ---
DS: Providers Provider Date of admission: 08/02/23 21:13 Primary care physician: Kelli Benavides MD Consults: 08/02/23 22:04 Consult to Pulmonology Routine Consulting Provider: [facility] [place] [facility] Reason for consultation: Acute on chronic hypercapnic + hypoxic respiratory failure Has provider been notified: No 08/11/23 11:34 Consult to Thoracic Surgery Routine Consulting Provider: Seven Callahan Reason for consultation: Evaluate for tracheostomy/gastrostomy Has provider been notified: No 08/12/23 16:00 Consult to Wound Care Routine Reason for consultation: stage 1? on coccyx 08/21/23 09:22 Consult to Infectious Diseases Routine Consulting Provider: [facility] [place] [facility] Reason for consultation: aspergillus in foul smelling sputum Has provider been notified: No Discharging clinician: Yadira Childress DS: Transfer Hospital Acceptance Reason for Transfer: Continued Tracheostomy/Ventilator Care DS: Diagnosis Discharge Diagnosis (1) Acute on chronic respiratory failure with hypoxia and hypercapnia: Status: Acute (2) Status post tracheostomy: Status: Acute (3) COPD (chronic obstructive pulmonary disease): Status: Acute (4) Obesity hypoventilation syndrome: Status: Acute (5) CHITO (obstructive sleep apnea): Status: Acute (6) Status post insertion of percutaneous endoscopic gastrostomy (PEG) tube: Status: Acute (7) Type 2 diabetes mellitus: Status: Acute DS: Summary Hospital Course Hospital Course: Ms. Larios is a 53 Y F with metabolic syndrome, complicated by morbid obesity, tobacco use, chronic obstructive pulmonary disease, obesity hypoventilation syndrome, and obstructive sleep apnea, complicated by chronic mixed respiratory failure, well-known to our institution unfortunately due to numerous admissions secondary to acute on chronic respiratory failure, with most recent admission on 08/01, due to COPD exacerbation, complicated by acute on chronic respiratory failure, necessitating intubation on 08/04; ICU course complicated by failed extubation, necessitating re-intubation on 08/10, and tracheostomy, gastrostomy tube placements on 08/11 Status at Discharge Functional status at discharge: bed bound Overall status at discharge: patient is back to baseline Time Attestation Total time managing care of this patient today: 90 mintues. Discharge Coordination Time (in mins): 15 Quality: Safe Use of Opioids Does Pt have an Active Cancer Diagnosis on the Problem List?: No Quality: Stroke Does the patient have a stroke diagnosis?: No Physical Exam Vital Signs: Vital Signs: Last Vital Signs Temp 99.3 F 08/25/23 12:00 Pulse 94 08/25/23 12:00 Resp 26 H 08/25/23 12:00 BP 105/51 L 08/25/23 12:00 Pulse Ox 94 08/25/23 12:00 O2 Del Method Trach Collar 08/25/23 12:00 O2 Flow Rate 90 08/05/23 15:52 FiO2 40 08/25/23 10:00 BMI result Body Mass Index 37.4 DS: Data Data Completed and Pending Completed studies during hospitalization [Text1]: Procedures Assistance with Respiratory Ventilation, 24-96 Consecutive Hours, Continuous Positive Airway Pressure (02/21/23) Assistance with Respiratory Ventilation, Less than 24 Consecutive Hours, Kacie nuous Positive Airway Pressure (07/09/23) Insertion of Endotracheal Airway into Trachea, Via Natural or Artificial Opening (07/16/23) Insertion of Infusion Device into Right Atrium, Percutaneous Approach (12/21/21) Insertion of Infusion Device into Right Brachial Vein, Percutaneous Approach (07/28/22) Insertion of Infusion Device into Superior Vena Cava, Percutaneous Approach (12/21/22) Insertion of Infusion Device into Upper Vein, Percutaneous Approach (02/21/23) Introduction of Vasopressor into Peripheral Vein, Percutaneous Approach (12/21/21) Respiratory Ventilation, 24-96 Consecutive Hours (07/16/23) Ultrasonography of Superior Vena Cava, Guidance (12/21/22) Labs on day of discharge: Laboratory Results - last 24 hr 08/24/23 08/24/23 08/24/23 17:45 21:10 23:55 Sodium Potassium Chloride Carbon Dioxide Anion Gap BUN Creatinine Estim Creat Clear Calc Estimated GFR POC Glucose 204 H 216 H 190 H Random Glucose Calcium Phosphorus Magnesium Total Bilirubin AST ALT Alkaline Phosphatase Total Protein Albumin Triglycerides 08/25/23 08/25/23 08/25/23 05:37 09:01 12:07 Sodium 144 Potassium 4.8 Chloride 100 Carbon Dioxide 29 Anion Gap 20 BUN 50 H Creatinine 1.21 Estim Creat Clear Calc 52.6 Estimated GFR 47 POC Glucose 177 H 156 H Random Glucose 146 H Calcium 10.2 Phosphorus 3.4 Magnesium 2.2 Total Bilirubin 0.3 AST 23 ALT 16 Alkaline Phosphatase 84 Total Protein 7.2 Albumin 2.9 L Triglycerides 277 H Preliminary micro results at discharge 08/22/23 11:35 Routine Culture - Preliminary Neck Discharge Plan Discharge Patient Disposition: Xfer LT Discharge Diagnosis: Acute on Chronic Respiratory Failure Referrals: Physician,Unknown J [Physician] - 1 Week Discharge Medications: No Action gabapentin 300 mg capsule 300 mg PO BID Qty: 60 11RF albuterol sulfate [ProAir HFA] 90 mcg/actuation HFA aerosol inhaler 2 puff inhalation Q4H PRN (Reason: Shortness Of Breath Or Wheezing) Qty: 1 0RF omeprazole 40 mg capsule,delayed release(DR/EC) 40 mg PO DAILY@0630 30 Days Qty: 30 6RF ipratropium-albuterol 0.5 mg-3 mg(2.5 mg base)/3 mL solution for nebulization 3 ml PO Q4H PRN (Reason: for wheezing) Qty: 540 6RF furosemide 20 mg tablet 40 mg PO DAILY 90 Days Qty: 180 0RF diltiazem HCl [Tiadylt ER] 360 mg capsule,extended release 24 hr 360 mg PO DAILY rosuvastatin 5 mg tablet 5 mg PO BEDTIME roflumilast [Daliresp] 500 mcg tablet 500 mcg PO DAILY metformin 500 mg tablet extended release 24 hr 500 mg PO DAILY hydralazine 25 mg tablet 25 mg PO TIDWM insulin lispro 100 unit/mL solution 4 unit subcut TIDAC PRN (Reason: Hyperglycemia) Rx Instructions: per sliding scale methadone 10 mg/mL Concentrate 50 mg PO DAILY Patient Comments: [facility]IC[facility] AND ADMINISTERS lamotrigine 150 mg tablet 150 mg PO BID calcitonin (salmon) 200 unit/actuation spray,non-aerosol 1 spray intranasal DAILY Rx Instructions: one nostril every day, alternate sides. insulin glargine [Lantus U-100 Insulin] 100 unit/mL solution 45 unit subcut BEDTIME docusate sodium 100 mg capsule 100 mg PO BID PRN (Reason: constipation) acetazolamide 250 mg Tablet 250 mg PO BID Qty: 180 0RF insulin lispro [Admelog U-100 Insulin lispro] 100 unit/mL Solution See Protocol subcut QIDACHS Qty: 10 0RF Protocol: Insulin Correction Scale Less than or equal to 110 ---- Give (units): 0 111 to 150 Give (units): 0 151 to 200 Give (units): 2 201 to 250 Give (units): 4 251 to 300 Give (units): 6 301 to 350 Give (units): 8 Greater than 350 Give (units): 10 Call MD if Blood Glucose > : 400 Rx Instructions: Use in addition to 4 units lispro as prescribed while using steroid taper to manage steroid induced hyperglycemia clonazepam 1 mg tablet 1 mg PO BID PRN (Reason: Anxiety) polyethylene glycol 3350 [Miralax] 17 gram/dose powder 17 g PO DAILY PRN (Reason: constipation) ammonium lactate 12 % lotion 1 appl topical DAILY PRN (Reason: Dry Skin) zolpidem 5 mg tablet 5 mg PO BEDTIME PRN (Reason: Sleep) Rx Instructions: use with 100% BIPAP compliance only diclofenac sodium 1 % gel 4 g TOPICAL QID PRN (Reason: Pain) cholecalciferol (vitamin D3) 1,250 mcg (50,000 unit) capsule 1,250 mcg PO MOTH lidocaine 5 % adhesive patch,medicated 1 patch topical DAILY PRN (Reason: Pain) azathioprine 50 mg tablet 100 mg PO DAILY montelukast 10 mg tablet 10 mg PO BEDTIME loratadine [Claritin] 10 mg tablet 10 mg PO DAILY (DME) compress.stocking,knee,reg,med Misc See Rx Instructions .Route Qty: 2 0RF Rx Instructions: 15-20 cm arformoterol [Brovana] 15 mcg/2 mL solution for nebulization 2 ml inhalation Q12H 30 Days Qty: 120 11RF budesonide 0.5 mg/2 mL suspension for nebulization 0.5 mg inhalation BID Qty: 120 11RF tiotropium bromide [Spiriva with HandiHaler] 18 mcg capsule, w/inhalation device 1 cap inhalation DAILY Qty: 30 11RF (DME) nebulizers Misc See Rx Instructions .ROUTE Rx Instructions: As directed folic acid 1 mg tablet 1 mg PO DAILY 30 Days Qty: 30 6RF amoxicillin-pot clavulanate 875-125 mg tablet 1 tab PO BID 10 Days Qty: 20 0RF Rx Instructions: END DATE: 08/07/23 prednisone 10 mg tablet 20 mg PO DAILY 30 Days Qty: 60 6RF guaifenesin [Mucinex] 1,200 mg tablet extended release 12hr 1,200 mg PO Q12H 30 Days Qty: 60 2RF Stand Alone Forms: Patient Portal Discharge page Print Language: Taiwanese
--- NOTE | 2023-08-25 13:50 | PM.EVENT ---
Event Note Date of Service: 08/25/23 Event Note: Some leakage from the PEG site noted. Abdomen remained soft Peg tube in place No skin breakdown noted I tightened the external bolster little bit to make this snug on the skin Unfortunately, because the tube had been pulled out inadvertently last week, this had created a larger tract prone to leakage It may take some time for this to contract and create a seal Okay to try with low-dose feeds for now Wound care Time Spent With Patient Time: Total time managing care of this patient today ____ minutes.
[2023-08-25 18:19] LABS: Glucose, Whole Blood 164 mg/dL (60-115)
[2023-08-25 22:09] LABS: Glucose, Whole Blood 190 mg/dL (60-115)
[2023-08-25] MEDS: Parenteral Nutrition 1,680 ML 70 ML IV (22:10)
[2023-08-25] MEDS: Insulin Glargine,Hum.rec.anlog 100 UNIT/ML 10 ML VIAL 20 UNIT SUBCUT (22:11)
[2023-08-25 23:54] LABS: Glucose, Whole Blood 211 mg/dL (60-115)
[2023-08-26] VITALS (36 sets, daily range): BP systolic 99–154; BP diastolic 49–73; PULSE 77–109; RESP 18–22; TEMP 34.2–37.7; O2SAT 89–98; BMI 37.5
[2023-08-26] MEDS: Insulin Lispro 100 UNIT/ML 3 ML VIAL SUBCUT ×7 (00:02→18:14)
[2023-08-26] MEDS: Heparin Sodium,Porcine 5,000 UNIT/ML VIAL 5000 UNIT SUBCUT ×3 (00:03→18:14)
[2023-08-26 05:52] LABS: VBG Base Excess 5.1 mmol/L; VBG HCO3 32 mmol/L (22-26); VBG pCO2 59 mmHg; VBG pH 7.34 (7.32-7.43); VBG pO2 80 mmHg
[2023-08-26 05:57] LABS: Glucose, Whole Blood 357 mg/dL (60-115)
[2023-08-26 05:58] LABS: Hematocrit 31.9 % (37.0-47.0); Hemoglobin 9.2 g/dl (12.0-16.0); Mean Corpuscular HGB Conc 28.8 g/dl (31.0-35.0); Mean Corpuscular Hemoglobin 28.8 pg (27.0-33.0); Mean Corpuscular Volume 99.7 fL (80.0-98.0); Mean Platelet Volume 9.7 fL (9.4-12.3); Platelet Count 344 X10*3/uL (160-400); Red Cell Distribution Width 17.9 % (11.0-16.0)
[2023-08-26 06:02] LABS: NRBC Pct Auto 4.5 /100WBC (0.0-0.2); WBC ABN SCTR FOR CBC 1; White Blood Count 18.3 X10*3/uL (4.8-10.8)
[2023-08-26 06:25] LABS: Alanine Aminotransferase 16 U/L (0-31); Albumin Level 2.9 g/dL (3.5-5.0); Alkaline Phosphatase 85 U/L (39-117); Anion Gap 15 (12-20); Aspartate Amino Transferase 23 U/L (5-31); Bilirubin Total 0.2 mg/dL (0.0-1.0); Blood Urea Nitrogen 48 mg/dL (9-16); Calcium 10.2 mg/dL (8.4-10.2); Carbon Dioxide 30 mmol/L (22-29); Chloride 100 mmol/L (96-108); Creatinine Clr Calc Pharmacy 60.7; Estimated Glomerular Filt Rate 55; Glucose Random 371 mg/dL (60-115); Magnesium 2.3 mg/dL (1.6-2.6); Phosphorus 4.8 mg/dL (2.7-4.5); Potassium 5.5 mmol/L (3.3-5.1); Sodium 139 mmol/L (135-145); Total Protein 7.2 g/dL (6.5-8.0)
[2023-08-26 06:33] LABS: Band Neutrophils Percent 4 % (3-5); Eosinophils Absolute Manual 0.4 X10*3/uL (0.0-0.4); Eosinophils Percent Manual 2 % (0-4); Lymphocytes Absolute Manual 1.1 X10*3/uL (1.2-4.9); Lymphocytes Percent Manual 6 % (20-40); Metamyelocytes Absolute 1.3 X10*3/uL; Metamyelocytes Percent 7 %; Monocytes Absolute Manual 0.7 X10*3/uL (0.1-1.2); Monocytes Percent Manual 4 % (2-11); Myelocytes Absolute 0.5 X10*/uL; Myelocytes Percent 3 %; Neutrophils Absolute Manual 14.3 X10*3/uL (2.0-8.3); Neutrophils Percent Manual 74 % (45-73); Nucleated Red Blood Cells 2 /100WBC (0-0); RBC Morphology NOTED
[2023-08-26 06:36] LABS: Basophilic Stippling 1+ (0-2) /OIF; Platelet Estimate NORMAL (NORMAL); Platelet Morphology Comment NORMAL; Polychromasia 1+ (0-2) /OIF; Spherocytes 1+ (0-2) /OIF; Tear Drop Cells 1+ (0-2) /OIF
[2023-08-26 07:05] LABS: Venous Blood Gas Refer to POC result
--- NOTE | 2023-08-26 07:59 | P.PNCC_ITS ---
Subjective Subjective Date of Service: 08/26/23 Interval History: appreciable increased fatigue, leukocytosis this AM; otherwise hemodynamically stable Critical Care Time (minutes): 60 Physical Exam 2 Vital Signs: Vital Signs: Last Vital Signs Temp 98.6 F 08/26/23 07:00 Pulse 102 H 08/26/23 07:00 Resp 22 H 08/26/23 07:00 BP 110/61 08/26/23 07:00 Pulse Ox 96 08/26/23 07:00 O2 Del Method Mechanical Ventil ation 08/26/23 07:00 O2 Flow Rate 10 08/25/23 15:58 FiO2 50 08/26/23 07:00 BMI result Body Mass Index 37.5 Const: Other: appears more fatigued today, though wakes with minimal verbal stimulus General: comfortable, no acute distress and well developed HEENT: Head: Yes normal to inspection, Yes normocephalic and Yes atraumatic Eyes: General: appearance normal, both eyes and all related structures Neck: Neck: Yes normal visual inspection, Yes full ROM, Yes no meningeal signs, Yes trachea midline and Yes supple Chest: Chest palpation & inspection: normal inspection of the chest Resp: Other: some appreciable rhonchi; no appreciable rales, wheezing Effort & Inspection: normal respiratory effort Cardio: Rate: tachycardic Rhythm: regular rhythm GI: Inspection: Yes normal to inspection, No Abdominal wall edema and No distended Palpation (GI): Soft to palpation, not firm, nontender, no guarding and not rigid : External Female Exam: normal external appearance Skin: General skin exam: no rashes or lesions noted Neuro: General: tone normal, moves all extremities, no meningeal signs and no focal motor deficits Extrem: Other: some appreciable edema bilateral hands General: Yes normal to inspection, Yes full ROM and Yes capillary refill normal Psych: Appearance: grossly normal Objective Data Labs 08/26/23 05:48 08/26/23 05:48 Labs: Laboratory Results - last 24 hr 08/25/23 08/25/23 08/25/23 09:01 12:07 18:11 WBC RBC Hgb Hct MCV MCH MCHC RDW Plt Count MPV Immature Gran % (Auto) Neut % (Auto) Lymph % (Auto) Vilas % (Auto) Eos % (Auto) Baso % (Auto) Lymph # (Auto) [place] # (Auto) Eos # (Auto) Baso # (Auto) Abs Immat Gran (auto) Absolute Neuts (auto) Absolute Nucleated RBC Nucleated RBC % (auto) Neutrophils % (Manual) Band Neutrophils % Lymphocytes % (Manual) Monocytes % (Manual) Eosinophils % (Manual) Metamyelocytes % Myelocytes % Abs Neuts (Manual) Lymphocytes # (Manual) Monocytes # (Manual) Eosinophils # (Manual) Metamyelocytes # Myelocytes # Nucleated RBCs Platelet Estimate Plt Morphology Comment RBC Morphology Polychromasia Basophilic Stippling Spherocytes Tear Drop Cells VBG pH VBG pCO2 VBG pO2 VBG HCO3 VBG O2 Saturation VBG Base Excess Sodium 144 Potassium 4.8 Chloride 100 Carbon Dioxide 29 Anion Gap 20 BUN 50 H Creatinine 1.21 Estim Creat Clear Calc 52.6 Estimated GFR 47 POC Glucose 156 H 164 H Random Glucose 146 H Calcium 10.2 Phosphorus 3.4 Magnesium 2.2 Total Bilirubin 0.3 AST 23 ALT 16 Alkaline Phosphatase 84 Total Protein 7.2 Albumin 2.9 L Triglycerides 277 H 08/25/23 08/25/23 08/26/23 22:05 23:50 05:44 WBC RBC Hgb Hct MCV MCH MCHC RDW Plt Count MPV Immature Gran % (Auto) Neut % (Auto) Lymph % (Auto) Vil[place] % (Auto) Eos % (Auto) Baso % (Auto) Lymph # (Auto) Vil[place] # (Auto) Eos # (Auto) Baso # (Auto) Abs Immat Gran (auto) Absolute Neuts (auto) Absolute Nucleated RBC Nucleated RBC % (auto) Neutrophils % (Manual) Band Neutrophils % Lymphocytes % (Manual) Monocytes % (Manual) Eosinophils % (Manual) Metamyelocytes % Myelocytes % Abs Neuts (Manual) Lymphocytes # (Manual) Monocytes # (Manual) Eosinophils # (Manual) Metamyelocytes # Myelocytes # Nucleated RBCs Platelet Estimate Plt Morphology Comment RBC Morphology Polychromasia Basophilic Stippling Spherocytes Tear Drop Cells VBG pH 7.34 VBG pCO2 59 VBG pO2 80 VBG HCO3 32 H VBG O2 Saturation 97.0 VBG Base Excess 5.1 Sodium Potassium Chloride Carbon Dioxide Anion Gap BUN Creatinine Estim Creat Clear Calc Estimated GFR POC Glucose 190 H 211 H Random Glucose Calcium Phosphorus Magnesium Total Bilirubin AST ALT Alkaline Phosphatase Total Protein Albumin Triglycerides 08/26/23 08/26/23 05:48 05:53 WBC 18.3 H RBC 3.20 L Hgb 9.2 L Hct 31.9 L MCV 99.7 H MCH 28.8 MCHC 28.8 L RDW 17.9 H Plt Count 344 MPV 9.7 Immature Gran % (Auto) Cancelled Neut % (Auto) Cancelled Lymph % (Auto) Cancelled Vilas % (Auto) Cancelled Eos % (Auto) Cancelled Baso % (Auto) Cancelled Lymph # (Auto) Cancelled Vil[place] # (Auto) Cancelled Eos # (Auto) Cancelled Baso # (Auto) Cancelled Abs Immat Gran (auto) Cancelled Absolute Neuts (auto) Cancelled Absolute Nucleated RBC 0.830 H Nucleated RBC % (auto) 4.5 H Neutrophils % (Manual) 74 H Band Neutrophils % 4 Lymphocytes % (Manual) 6 L Monocytes % (Manual) 4 Eosinophils % (Manual) 2 Metamyelocytes % 7 Myelocytes % 3 Abs Neuts (Manual) 14.3 H Lymphocytes # (Manual) 1.1 L Monocytes # (Manual) 0.7 Eosinophils # (Manual) 0.4 Metamyelocytes # 1.3 Myelocytes # 0.5 Nucleated RBCs 2 H Platelet Estimate NORMAL Plt Morphology Comment NORMAL RBC Morphology NOTED Polychromasia 1+ (0-2) Basophilic Stippling 1+ (0-2) Spherocytes 1+ (0-2) Tear Drop Cells 1+ (0-2) VBG pH VBG pCO2 VBG pO2 VBG HCO3 VBG O2 Saturation VBG Base Excess Sodium 139 Potassium 5.5 H Chloride 100 Carbon Dioxide 30 H Anion Gap 15 BUN 48 H Creatinine 1.05 Estim Creat Clear Calc 60.7 Estimated GFR 55 POC Glucose 357 H* Random Glucose 371 H* Calcium 10.2 Phosphorus 4.8 H Magnesium 2.3 Total Bilirubin 0.2 AST 23 ALT 16 Alkaline Phosphatase 85 Total Protein 7.2 Albumin 2.9 L Triglycerides Microbiology Microbiology Results: Microbiology 08/22/23 11:35 Neck Gram Stain - Final 08/22/23 11:35 Neck Routine Culture - Preliminary 08/19/23 09:51 Blood - Venous Blood Culture - Final No growth after 5 days. 08/19/23 09:51 Blood - Venous Blood Culture - Final No growth after 5 days. 08/21/23 17:34 Tracheal Aspirate Gram Stain - Final 08/21/23 17:34 Tracheal Aspirate Sputum Culture - Final Corynebacterium species 08/22/23 11:42 Urine Catheterized - Adan Catheter Urine Culture - Final No growth. 08/03/23 16:38 Sputum - Expectorated Gram Stain - Final 08/03/23 16:38 Sputum - Expectorated Sputum Culture - Final Aspergillus fumigatus 08/02/23 14:20 Blood - Venous Blood Culture - Final No growth after 5 days. 08/02/23 13:36 Blood - Venous Blood Culture - Final No growth after 5 days. Progress Note: A&P Assessment and plan (1) Status post tracheostomy: Status: Acute (2) Status post insertion of percutaneous endoscopic gastrostomy (PEG) tube: Status: Acute (3) Type 2 diabetes mellitus: Status: Acute (4) Opioid dependence: Status: Acute (5) Acute exacerbation of chronic obstructive airways disease: Status: Acute (6) Acute on chronic respiratory failure with hypoxia and hypercapnia: Status: Acute (7) CHITO (obstructive sleep apnea): Status: Acute (8) Obesity hypoventilation syndrome: Status: Acute (9) COPD (chronic obstructive pulmonary disease): Status: Acute Plan Patient is a 53 Y F w/ metabolic syndrome c/b morbid obesity, tobacco use, COPD, OHS, CHITO, c/b chronic mixed respiratory failure, and methadone use, reportedly on BiPAP PM, well-known to our institution d/t numerous admissions d/t acute on chronic respiratory failure, most recent admission admitted 08/01, c/b intubation, failed extubation, s/p trach/PEG on 08/11 N: anxiety, home clonazepam as needed; insomnia, home zolpidem as needed CV: no acute issues; atrial fibrillation, on home diltiazem R: COPD, OHS, CHITO, c/b acute on chronic mixed respiratory failure, s/p trach on 08/11; wean ventilator as tolerated GI: obesity; s/p PEG on 08/11, c/b displacement; PPN and tolerating trickle tube feeds; appreciate surgery recommendations : no acute issues H: no acute issues; chemical DVT prophylaxis ID: given leukocytosis, to follow-up CT chest, abdomen for any possible infection E: TIIDM, c/b hyperglycemia; insulin regimen S: opioid dependence, on home methadone; awaiting facility placement Quality Stroke Does the patient have a stroke diagnosis?: No VTE Prior VTE?: No VTE Risk Level:: Medical - moderate - high VTE Device Contraindication: Treatment Not Indicated VTE Drug Contraindication: N/A - Med Ordered
[2023-08-26] MEDS: Albumin Human 25 % 100 ML IV (08:17)
[2023-08-26] MEDS: Nystatin Oral Susp 500,000 UNIT/5 ML ORAL.SUSP 100000 UNIT BUCCAL ×3 (08:18→21:12)
[2023-08-26] MEDS: Chlorhexidine Gluc Oral Rinse 15 ML MOUTHWASH BUCCAL ×3 (08:18→21:12)
[2023-08-26] MEDS: dilTIAZem HCL 60 MG TABLET PO ×4 (08:19→21:28)
[2023-08-26] MEDS: Famotidine/PF 20 MG/2 ML VIAL IVPUSH (08:20)
[2023-08-26] MEDS: Furosemide 40 MG/4 ML VIAL IVPUSH ×2 (08:20→18:15)
[2023-08-26] MEDS: 0.9 % Sodium Chloride Flush 3 ML SYRINGE IVFLUSH ×3 (08:20→16:41)
[2023-08-26] MEDS: Insulin Glargine,Hum.rec.anlog 100 UNIT/ML 10 ML VIAL 30 UNIT SUBCUT ×2 (08:21→21:11)
[2023-08-26] MEDS: lamoTRIgine 25 MG TABLET 150 MG PO (08:29)
[2023-08-26] MEDS: Calcitonin,Salmon,Synth Nasal 3.7 ML BOTTLE 1 SPRAY NOSTRIL-B (08:36)
--- NOTE | 2023-08-26 10:06 | MHC.CLN ---
F/U PT STARTED ON TRICKLE FEED AT 10ML/HR WITH MINIMAL LEAKAGE PER NSG REVIEWED LABS DISCUSSED AT ROUNDS WITH PT CONTINUES TO RECEIVE PPN DISCUSSED WITH PHARMACY CONTINUE PPN AT 70ML/HR PROVIDES 857KCALS, 168G DEXTROSE, 71G PROTEIN HOLD LIPIDS REPLETE LYTES NEEDED RECOMMEND INCREASING GLUCERNA TF TO 20ML/HR TO PROVIDE 480KCALS, 20G PROTEIN, 409ML FREE WATER FROM FORMULA MONITOR TOLERANCE AND LYTES
--- NOTE | 2023-08-26 10:09 | MHC.CM.PN ---
Pt tolerated trach mask on 08/25 x 11 hrs. Today, pt is more lethargic and not tracking or following commands. ? from respiratory fatigue? Pt will be doran scanned as a precaution. Peg tube is now functioning without leaking. Message sent to [facility] re: postponing any 08/26 potential d/c until 08/27 per MD. CM to follow
[2023-08-26] MEDS: iohexoL 350 MG/ML 100 ML INFUS..BTL IV (10:56)
[2023-08-26 12:26] LABS: Glucose, Whole Blood 324 mg/dL (60-115)
--- NOTE | 2023-08-26 13:46 | HO.WOUND ---
Wound Consult: Follow up 53yr old F?admitted to [facility] on? 08/02/23 - See progress notes and H&P for detailed history.?Patient currently ICU level of care. Wound consult Follow up for Sacrococcygeal area. Patient remains ICU level of care. Previous assessment Todays assessment 08/26/23 - Resurfacing Sacrococcygeal Etiology: Stage 2 Pressure Injury previously documented as Deep Tissue Injury ?? Wound Bed: Partial thickness tissue loss with resurfacing areas - tissue is now blanchable tissue Drainage / Odor: None Edges: ?irregular Pauline wound: MASD (Moisture Associated Skin Damage)? - hyperpigmented tissue - No Induration, Fluctuance or Warmth noted Goals of Treatment: ?Foam to aid in off loading pressure and Triad to protect from moisture Chart review reveals the patient was turned and repositioned?@ 2 hours, Low air loss specialty ICU mattress in use, pillows and wedges were used for off loading, Triad and foam dressing to the sacrum was in use and at the bedside. ?? No new topical recommendations needed. Recommendations: 1. Turn and Reposition every 2 hours and as needed for patient comfort.? Use pillows or wedges to support off loading positions. 2. Off Load all bony prominences with use of pillows and heel boots if needed.? Apply Preventative foams where needed. ? 3. Monitor for incontinence and moisture control, use barrier creams when needed for prevention and treatment. 4. Provide adequate and supplemental nutrition.? 5. Continue low air loss mattress. 6. When applicable maintain blood glucose levels per Providers order. 7. Sacrococcygeal - Off Load Pressure - Cleanse with PH balance spray or wipes, pat dry. ?Apply thin layer of Triad to wound bed. Do not remove all of paste between applications as this may cause further skin damage.? Cover with foam dressing to aid in off loading and protection from friction. Apply Triad to perianal and perineal area to protect from moisture and friction. Re-consult wound care Nurse for wound deterioration or wound changes.
[2023-08-26] MEDS: vancomycin/NS 2,000 MG/500 ML PLAST..BAG 250 MG IV (14:30)
[2023-08-26] MEDS: Piperacillin Sodium/Tazobactam 4.5 GM in 0.9 % Sodium Chloride 100 ML IV ×2 (14:34→20:48)
[2023-08-26 17:57] LABS: Glucose, Whole Blood 350 mg/dL (60-115)
[2023-08-26 20:40] LABS: Glucose, Whole Blood 341 mg/dL (60-115)
[2023-08-26] MEDS: Insulin Lispro 100 UNIT/ML 3 ML VIAL 8 UNIT SUBCUT (21:11)
[2023-08-26] MEDS: Parenteral Nutrition 1,680 ML 70 ML IV (21:17)
[2023-08-26] MEDS: lamoTRIgine 100 MG TABLET 150 MG PO (21:29)
[2023-08-27] VITALS (34 sets, daily range): BP systolic 109–144; BP diastolic 49–82; PULSE 87–127; RESP 16–31; TEMP 34.2–37.9; O2SAT 88–98; BMI 37.4
[2023-08-27 00:01] LABS: Glucose, Whole Blood 310 mg/dL (60-115)
[2023-08-27] MEDS: Heparin Sodium,Porcine 5,000 UNIT/ML VIAL 5000 UNIT SUBCUT ×2 (00:19→08:19)
[2023-08-27] MEDS: Insulin Lispro 100 UNIT/ML 3 ML VIAL SUBCUT ×4 (00:19→23:58)
[2023-08-27] MEDS: 0.9 % Sodium Chloride Flush 3 ML SYRINGE IVFLUSH ×3 (00:20→15:09)
[2023-08-27] MEDS: vancomycin HCL 1,000 MG in 0.9 % Sodium Chloride 250 ML 270 MG IV (02:13)
[2023-08-27] MEDS: Piperacillin Sodium/Tazobactam 4.5 GM in 0.9 % Sodium Chloride 100 ML IV ×4 (02:14→20:47)
--- NOTE | 2023-08-27 03:07 | HO.SKINPHOTO ---
Location: Trach site Category: MDPI
[2023-08-27 05:29] LABS: VBG Base Excess 8.3 mmol/L; VBG HCO3 34 mmol/L (22-26); VBG pCO2 57 mmHg; VBG pH 7.38 (7.32-7.43); VBG pO2 46 mmHg
[2023-08-27 05:31] LABS: Venous Blood Gas Refer to POC result
[2023-08-27 05:35] LABS: Hematocrit 28.2 % (37.0-47.0); Hemoglobin 8.4 g/dl (12.0-16.0); Mean Corpuscular HGB Conc 29.8 g/dl (31.0-35.0); Mean Corpuscular Hemoglobin 29.3 pg (27.0-33.0); Mean Corpuscular Volume 98.3 fL (80.0-98.0); Mean Platelet Volume 9.6 fL (9.4-12.3); NRBC Pct Auto 3.8 /100WBC (0.0-0.2); Platelet Count 287 X10*3/uL (160-400); Red Blood Count 2.87 X10*6/uL (4.20-5.50); Red Cell Distribution Width 18.1 % (11.0-16.0); White Blood Count 14.6 X10*3/uL (4.8-10.8)
[2023-08-27 05:57] LABS: Band Neutrophils Percent 9 % (3-5); Lymphocytes Absolute Manual 1.8 X10*3/uL (1.2-4.9); Lymphocytes Percent Manual 12 % (20-40); Metamyelocytes Absolute 1.3 X10*3/uL; Metamyelocytes Percent 9 %; Monocytes Absolute Manual 1.2 X10*3/uL (0.1-1.2); Monocytes Percent Manual 8 % (2-11); Neutrophils Absolute Manual 10.4 X10*3/uL (2.0-8.3); Neutrophils Percent Manual 62 % (45-73); Nucleated Red Blood Cells 2 /100WBC (0-0)
[2023-08-27 05:58] LABS: Hypochromasia 1+ (5-14) /OIF; Platelet Estimate NORMAL (NORMAL); Platelet Morphology Comment NORMAL; Polychromasia 1+ (0-2) /OIF; RBC Morphology NOTED; Spherocytes 1+ (0-2) /OIF
[2023-08-27 05:58] LABS: Glucose, Whole Blood 349 mg/dL (60-115)
[2023-08-27] MEDS: Insulin Lispro 100 UNIT/ML 3 ML VIAL 8 UNIT SUBCUT ×3 (06:00→23:58)
[2023-08-27 06:02] LABS: Alanine Aminotransferase 13 U/L (0-31); Alkaline Phosphatase 74 U/L (39-117); Anion Gap 11 (12-20); Aspartate Amino Transferase 23 U/L (5-31); Bilirubin Total 0.2 mg/dL (0.0-1.0); Blood Urea Nitrogen 43 mg/dL (9-16); Calcium 10.3 mg/dL (8.4-10.2); Carbon Dioxide 32 mmol/L (22-29); Chloride 101 mmol/L (96-108); Creatinine Clr Calc Pharmacy 61.9; Estimated Glomerular Filt Rate 56; Glucose Random 362 mg/dL (60-115); Magnesium 2.1 mg/dL (1.6-2.6); Phosphorus 3.1 mg/dL (2.7-4.5); Potassium 4.2 mmol/L (3.3-5.1); Sodium 140 mmol/L (135-145); Total Protein 6.9 g/dL (6.5-8.0)
[2023-08-27] MEDS: Nystatin Oral Susp 500,000 UNIT/5 ML ORAL.SUSP 100000 UNIT BUCCAL ×3 (08:17→20:38)
[2023-08-27] MEDS: dilTIAZem HCL 60 MG TABLET PO ×4 (08:17→20:40)
[2023-08-27] MEDS: Chlorhexidine Gluc Oral Rinse 15 ML MOUTHWASH BUCCAL ×2 (08:17→20:38)
[2023-08-27] MEDS: Furosemide 40 MG/4 ML VIAL IVPUSH ×2 (08:18→17:40)
[2023-08-27] MEDS: lamoTRIgine 100 MG TABLET 150 MG PO ×2 (08:18→20:40)
[2023-08-27] MEDS: Insulin Glargine,Hum.rec.anlog 100 UNIT/ML 10 ML VIAL 30 UNIT SUBCUT ×2 (08:18→20:41)
[2023-08-27] MEDS: Calcitonin,Salmon,Synth Nasal 3.7 ML BOTTLE 1 SPRAY NOSTRIL-B (08:19)
[2023-08-27] MEDS: Famotidine/PF 20 MG/2 ML VIAL IVPUSH (08:19)
--- NOTE | 2023-08-27 08:19 | P.PNCC_ITS ---
Subjective Subjective Date of Service: 08/27/23 Interval History: no significant overnight events Critical Care Time (minutes): 60 Physical Exam 2 Vital Signs: Vital Signs: Last Vital Signs Temp 100.0 F 08/27/23 08:00 Pulse 115 H 08/27/23 08:00 Resp 27 H 08/27/23 08:00 BP 128/60 08/27/23 08:00 Pulse Ox 91 L 08/27/23 08:00 O2 Del Method Mechanical Ventil ation 08/27/23 08:00 O2 Flow Rate 10 08/25/23 15:58 FiO2 35 08/27/23 08:00 BMI result Body Mass Index 37.4 Const: Other: appreciable morbid obesity; more active compared to yesterday General: comfortable and no acute distress HEENT: Other: appreciable tracheostomy, midline, some appreciable erythema, some white purulence; no appreciable fluctuance, induration Eyes: General: appearance normal, both eyes and all related structures Neck: Other: as described above Neck: Yes normal visual inspection, Yes full ROM, Yes no meningeal signs, Yes trachea midline and Yes supple Chest: Chest palpation & inspection: normal inspection of the chest Resp: Other: some appreciable rhonchi; no appreciable rales, wheezing Cardio: Rate: regular rate Rhythm: regular rhythm GI: Inspection: Yes normal to inspection, No Abdominal wall edema and No distended Palpation (GI): Soft to palpation, not firm, nontender, no guarding and not rigid Skin: General skin exam: no rashes or lesions noted Neuro: General: tone normal, moves all extremities, no meningeal signs and no focal motor deficits Extrem: General: Yes normal to inspection, Yes full ROM, Yes capillary refill normal and Yes no clubbing, cyanosis or edema Psych: Appearance: grossly normal Objective Data Labs 08/27/23 05:24 08/27/23 05:24 Labs: Laboratory Results - last 24 hr 08/26/23 08/26/23 08/26/23 12:22 17:54 20:37 WBC RBC Hgb Hct MCV MCH MCHC RDW Plt Count MPV Immature Gran % (Auto) Neut % (Auto) Lymph % (Auto) [facility] % (Auto) Eos % (Auto) Baso % (Auto) Lymph # (Auto) [facility] # (Auto) Eos # (Auto) Baso # (Auto) Abs Immat Gran (auto) Absolute Neuts (auto) Absolute Nucleated RBC Nucleated RBC % (auto) Neutrophils % (Manual) Band Neutrophils % Lymphocytes % (Manual) Monocytes % (Manual) Metamyelocytes % Abs Neuts (Manual) Lymphocytes # (Manual) Monocytes # (Manual) Metamyelocytes # Nucleated RBCs Platelet Estimate Plt Morphology Comment RBC Morphology Polychromasia Hypochromasia Spherocytes VBG pH VBG pCO2 VBG pO2 VBG HCO3 VBG O2 Saturation VBG Base Excess Sodium Potassium Chloride Carbon Dioxide Anion Gap BUN Creatinine Estim Creat Clear Calc Estimated GFR POC Glucose 324 H 350 H* 341 H Random Glucose Calcium Phosphorus Magnesium Total Bilirubin AST ALT Alkaline Phosphatase Total Protein Albumin 08/26/23 08/27/23 08/27/23 23:54 05:21 05:24 WBC 14.6 H RBC 2.87 L Hgb 8.4 L Hct 28.2 L MCV 98.3 H MCH 29.3 MCHC 29.8 L RDW 18.1 H Plt Count 287 MPV 9.6 Immature Gran % (Auto) Cancelled Neut % (Auto) Cancelled Lymph % (Auto) Cancelled [facility] % (Auto) Cancelled Eos % (Auto) Cancelled Baso % (Auto) Cancelled Lymph # (Auto) Cancelled [facility] # (Auto) Cancelled Eos # (Auto) Cancelled Baso # (Auto) Cancelled Abs Immat Gran (auto) Cancelled Absolute Neuts (auto) Cancelled Absolute Nucleated RBC 0.560 H Nucleated RBC % (auto) 3.8 H Neutrophils % (Manual) 62 Band Neutrophils % 9 H Lymphocytes % (Manual) 12 L Monocytes % (Manual) 8 Metamyelocytes % 9 Abs Neuts (Manual) 10.4 H Lymphocytes # (Manual) 1.8 Monocytes # (Manual) 1.2 Metamyelocytes # 1.3 Nucleated RBCs 2 H Platelet Estimate NORMAL Plt Morphology Comment NORMAL RBC Morphology NOTED Polychromasia 1+ (0-2) Hypochromasia 1+ (5-14) Spherocytes 1+ (0-2) VBG pH 7.38 VBG pCO2 57 VBG pO2 46 VBG HCO3 34 H VBG O2 Saturation 77.0 VBG Base Excess 8.3 Sodium 140 Potassium 4.2 D Chloride 101 Carbon Dioxide 32 H Anion Gap 11 L BUN 43 H Creatinine 1.03 Estim Creat Clear Calc 61.9 Estimated GFR 56 POC Glucose 310 H Random Glucose 362 H* Calcium 10.3 H Phosphorus 3.1 Magnesium 2.1 Total Bilirubin 0.2 AST 23 ALT 13 Alkaline Phosphatase 74 Total Protein 6.9 Albumin 3.0 L 08/27/23 05:54 WBC RBC Hgb Hct MCV MCH MCHC RDW Plt Count MPV Immature Gran % (Auto) Neut % (Auto) Lymph % (Auto) [facility] % (Auto) Eos % (Auto) Baso % (Auto) Lymph # (Auto) [facility] # (Auto) Eos # (Auto) Baso # (Auto) Abs Immat Gran (auto) Absolute Neuts (auto) Absolute Nucleated RBC Nucleated RBC % (auto) Neutrophils % (Manual) Band Neutrophils % Lymphocytes % (Manual) Monocytes % (Manual) Metamyelocytes % Abs Neuts (Manual) Lymphocytes # (Manual) Monocytes # (Manual) Metamyelocytes # Nucleated RBCs Platelet Estimate Plt Morphology Comment RBC Morphology Polychromasia Hypochromasia Spherocytes VBG pH VBG pCO2 VBG pO2 VBG HCO3 VBG O2 Saturation VBG Base Excess Sodium Potassium Chloride Carbon Dioxide Anion Gap BUN Creatinine Estim Creat Clear Calc Estimated GFR POC Glucose 349 H Random Glucose Calcium Phosphorus Magnesium Total Bilirubin AST ALT Alkaline Phosphatase Total Protein Albumin Microbiology Microbiology Results: Microbiology 08/26/23 11:25 Tracheal Aspirate Gram Stain - Final 08/22/23 11:35 Neck Gram Stain - Final 08/22/23 11:35 Neck Routine Culture - Final Group F Streptococcus 08/19/23 09:51 Blood - Venous Blood Culture - Final No growth after 5 days. 08/19/23 09:51 Blood - Venous Blood Culture - Final No growth after 5 days. 08/21/23 17:34 Tracheal Aspirate Gram Stain - Final 08/21/23 17:34 Tracheal Aspirate Sputum Culture - Final Corynebacterium species 08/22/23 11:42 Urine Catheterized - Adan Catheter Urine Culture - Final No growth. 08/03/23 16:38 Sputum - Expectorated Gram Stain - Final 08/03/23 16:38 Sputum - Expectorated Sputum Culture - Final Aspergillus fumigatus 08/02/23 14:20 Blood - Venous Blood Culture - Final No growth after 5 days. 08/02/23 13:36 Blood - Venous Blood Culture - Final No growth after 5 days. Progress Note: A&P Assessment and plan (1) Acute on chronic respiratory failure with hypoxia and hypercapnia: Status: Acute (2) Pneumonia: Status: Acute (3) Tracheitis: Status: Acute (4) Encephalopathy acute: Status: Acute (5) Obesity hypoventilation syndrome: Status: Acute (6) COPD (chronic obstructive pulmonary disease): Status: Acute (7) CHITO (obstructive sleep apnea): Status: Acute (8) Status post tracheostomy: Status: Acute (9) Status post insertion of percutaneous endoscopic gastrostomy (PEG) tube: Status: Acute (10) Type 2 diabetes mellitus: Status: Acute (11) Opioid dependence: Status: Acute Plan Patient is a 53 Y F w/ metabolic syndrome c/b morbid obesity, tobacco use, COPD, OHS, CHITO, c/b chronic mixed respiratory failure, and methadone use, reportedly on BiPAP PM, well-known to our institution d/t numerous admissions d/t acute on chronic respiratory failure, most recent admission admitted 08/01, c/b intubation, failed extubation, s/p trach/PEG on 08/11 N: encephalopathy, likely toxic-metabolic, likely d/t infection, tracheitis and pneumonia, improving CV: no acute issues; atrial fibrillation, on home diltiazem R: COPD, OHS, CHITO, c/b acute on chronic mixed respiratory failure, s/p trach on 08/11; wean ventilator as tolerated GI: s/p PEG on 08/11, c/b displacement; PPN and tolerating tube feeds, advance as tolerated; appreciate surgery recommendations : no acute issues H: possible upper extremity venous thrombus; awaiting radiology reads; chemical DVT prophylaxis ID: tracheitis, pnuemonia; on vancomycin, zosyn E: TIIDM, c/b hyperglycemia; insulin regimen S: opioid dependence, on home methadone; awaiting facility placement Quality Stroke Does the patient have a stroke diagnosis?: No VTE Prior VTE?: No VTE Risk Level:: Medical - moderate - high VTE Device Contraindication: Treatment Not Indicated VTE Drug Contraindication: N/A - Med Ordered
--- NOTE | 2023-08-27 10:15 | MHC.CLN ---
F/U PT ON TRICKLE FEED AT 20ML/HR WITH NO LEAKAGE PER NSG REVIEWED LABS DISCUSSED WITH MD WITH PLAN TO TITRATE TF AND D/C PPN DISCUSSED WITH PHARMACY TO D/C PPN RECOMMEND INCREASING GLUCERNA TF TO MAX GOAL RATE 55ML/HR WITH 30ML PROSOURCE BID AND 240ML FREE WATER FLUSHES Q 8 HRS TO PROVIDE 1440KCALS (24KCALS/KG), 85G PROTEIN (1.4G/KG), 1846ML TOTAL FREE WATER FROM FORMULA AND FLUSHES (31ML/KG) MONITOR TOLERANCE, RESIDUALS AND LYTES
[2023-08-27 10:53] LABS: Prothrombin Time 11.7 SEC (11.1-13.3)
[2023-08-27 10:55] LABS: Hematocrit 28.1 % (37.0-47.0); Hemoglobin 8.5 g/dl (12.0-16.0); Mean Corpuscular HGB Conc 30.2 g/dl (31.0-35.0); Mean Corpuscular Hemoglobin 29.3 pg (27.0-33.0); Mean Corpuscular Volume 96.9 fL (80.0-98.0); Mean Platelet Volume 9.7 fL (9.4-12.3); Platelet Count 290 X10*3/uL (160-400); Red Cell Distribution Width 17.6 % (11.0-16.0); White Blood Count 13.7 X10*3/uL (4.8-10.8)
[2023-08-27 10:56] LABS: NRBC Pct Auto 3.6 /100WBC (0.0-0.2); Partial Thromboplastin Time 25.3 SEC (26.0-36.8)
[2023-08-27] MEDS: Enoxaparin Sodium 100 MG/ML SYRINGE 90 MG SUBCUT ×2 (11:44→20:38)
[2023-08-27 12:17] LABS: Glucose, Whole Blood 259 mg/dL (60-115)
[2023-08-27 12:40] LABS: Vancomycin Random 27.8 mcg/mL (15-20)
--- NOTE | 2023-08-27 12:51 | HE.PHANOTE ---
Re: Eileeno Stable renal function. Trough returned at 27.8. 1400 dose held. Another trough ordered to be drawn tonight at 2100.
--- NOTE | 2023-08-27 13:53 | HO.WOUND ---
Wound Consult:Initial 53yr old F?admitted to [facility] [place] on[place] 08/02/23 - See progress notes and H&P for detailed history.?Patient currently ICU level of care. New wound consult placed for Trach site. Patient remains ICU level of care. Trach site assessed appears to be related to dehiscence of surgical incision made for placement in combination with MASD. See Op note for trach creation details. This does not appear pressure or device related at this time. Given the patient physical anatomy including neck girth this areas is showing signs of MASD (Moisture Associated Skin Damage) despite frequent trach care. Given that is is patient anatomy little can be done aside from frequent Trach care and split gauze dressing changes. Discussed with direct care nurse and recommended increase frequency of split gauze changes as needed. Patient Anatomy / Neck Girth Sacrococcygeal not assessed today - no new topical recommendations needed at this time. Etiology: Stage 2 Pressure Injury previously documented as Deep Tissue Injury ?? Goals of Treatment: ?Foam to aid in off loading pressure and Triad to protect from moisture Recommendations: 1. Turn and Reposition every 2 hours and as needed for patient comfort.? Use pillows or wedges to support off loading positions. 2. Off Load all bony prominences with use of pillows and heel boots if needed.? Apply Preventative foams where needed. ? 3. Monitor for incontinence and moisture control, use barrier creams when needed for prevention and treatment. 4. Provide adequate and supplemental nutrition.? 5. Continue low air loss mattress. 6. When applicable maintain blood glucose levels per Providers order. 7. Sacrococcygeal - Off Load Pressure - Cleanse with PH balance spray or wipes, pat dry. ?Apply thin layer of Triad to wound bed. Do not remove all of paste between applications as this may cause further skin damage.? Cover with foam dressing to aid in off loading and protection from friction. Apply Triad to perianal and perineal area to protect from moisture and friction. 8. Trach Site - Routine Trach care as recommended and PRN. Consider changing split gauze more often in an effort to remove excess moisture to allow for decreased healing time. Re-consult wound care Nurse for wound deterioration or wound changes.
[2023-08-27] MEDS: methADONE HCl 5 MG TABLET 15 MG PO ×2 (14:49→20:40)
--- NOTE | 2023-08-27 15:55 | MHC.CM.PN ---
PT REMAINS IN ICU, HAS DEVELOPED PNA, VIBRA UPDATED. CM WILL CONTINUE TO FOLLOW FOR ANY CHANGE TO DC PLAN.
[2023-08-27] MEDS: ondansetron HCL 4 MG/2 ML VIAL IVPUSH (17:40)
[2023-08-27 17:58] LABS: Glucose, Whole Blood 101 mg/dL (60-115)
[2023-08-27 20:33] LABS: Glucose, Whole Blood 147 mg/dL (60-115)
[2023-08-27 21:30] LABS: Vancomycin Random 19.9 mcg/mL (15-20)
[2023-08-27 23:52] LABS: Glucose, Whole Blood 206 mg/dL (60-115)
[2023-08-28] VITALS (35 sets, daily range): BP systolic 94–132; BP diastolic 53–84; PULSE 83–115; RESP 13–31; TEMP 34.9–37.2; O2SAT 90–100; BMI 37.8
[2023-08-28] MEDS: Piperacillin Sodium/Tazobactam 4.5 GM in 0.9 % Sodium Chloride 100 ML IV ×4 (03:19→20:06)
[2023-08-28 06:07] LABS: VBG Base Excess 15.4 mmol/L; VBG HCO3 39 mmol/L (22-26); VBG pCO2 48 mmHg; VBG pH 7.52 (7.32-7.43); VBG pO2 74 mmHg
[2023-08-28 06:10] LABS: Glucose, Whole Blood 104 mg/dL (60-115)
[2023-08-28 06:11] LABS: Hematocrit 28.6 % (37.0-47.0); Hemoglobin 8.3 g/dl (12.0-16.0); Mean Corpuscular Hemoglobin 28.4 pg (27.0-33.0); Mean Corpuscular Volume 97.9 fL (80.0-98.0); Mean Platelet Volume 9.4 fL (9.4-12.3); Platelet Count 300 X10*3/uL (160-400); Red Blood Count 2.92 X10*6/uL (4.20-5.50); Red Cell Distribution Width 17.8 % (11.0-16.0); White Blood Count 11.6 X10*3/uL (4.8-10.8)
[2023-08-28 06:12] LABS: NRBC Pct Auto 2.8 /100WBC (0.0-0.2)
[2023-08-28 06:21] LABS: Venous Blood Gas Refer to POC result
[2023-08-28 06:27] LABS: Vancomycin Random 14.2 mcg/mL (15-20)
[2023-08-28 06:34] LABS: Alanine Aminotransferase 16 U/L (0-31); Alkaline Phosphatase 78 U/L (39-117); Anion Gap 11 (12-20); Aspartate Amino Transferase 38 U/L (5-31); Bilirubin Total 0.3 mg/dL (0.0-1.0); Blood Urea Nitrogen 32 mg/dL (9-16); Calcium 10.6 mg/dL (8.4-10.2); Carbon Dioxide 37 mmol/L (22-29); Chloride 99 mmol/L (96-108); Creatinine Clr Calc Pharmacy 82.1; Estimated Glomerular Filt Rate > 60; Glucose Random 114 mg/dL (60-115); Magnesium 1.8 mg/dL (1.6-2.6); Phosphorus 3.5 mg/dL (2.7-4.5); Potassium 3.1 mmol/L (3.3-5.1); Sodium 144 mmol/L (135-145); Total Protein 7.2 g/dL (6.5-8.0)
[2023-08-28 07:01] LABS: Band Neutrophils Percent 4 % (3-5); Lymphocytes Absolute Manual 1.7 X10*3/uL (1.2-4.9); Lymphocytes Percent Manual 15 % (20-40); Metamyelocytes Absolute 0.5 X10*3/uL; Metamyelocytes Percent 4 %; Monocytes Percent Manual 9 % (2-11); Neutrophils Absolute Manual 8.4 X10*3/uL (2.0-8.3); Neutrophils Percent Manual 68 % (45-73); Nucleated Red Blood Cells 5 /100WBC (0-0)
[2023-08-28 07:05] LABS: Basophilic Stippling 1+ (0-2) /OIF; Hypochromasia 1+ (5-14) /OIF; Platelet Estimate NORMAL (NORMAL); Platelet Morphology Comment NORMAL; Polychromasia 1+ (0-2) /OIF; RBC Morphology NOTED; Spherocytes 1+ (0-2) /OIF
[2023-08-28] MEDS: Albuterol/Iprat 2.5/0.5MG 3 ML AMPUL.NEB INHALE ×4 (08:15→21:10)
--- NOTE | 2023-08-28 08:22 | P.PNCC_ITS ---
Subjective Subjective Date of Service: 08/28/23 Interval History: no significant overnight events Critical Care Time (minutes): 60 Physical Exam 2 Vital Signs: Vital Signs: Last Vital Signs Temp 98.1 F 08/28/23 07:00 Pulse 92 08/28/23 07:00 Resp 20 08/28/23 07:00 BP 109/72 08/28/23 07:00 Pulse Ox 93 08/28/23 07:00 O2 Del Method Mechanical Ventil ation 08/28/23 07:00 O2 Flow Rate 10 08/25/23 15:58 FiO2 35 08/28/23 07:00 BMI result Body Mass Index 37.8 Const: Other: as alert as yesterday, responds to verbal stimulus; moves all extremities General: cooperative, healthy appearing, comfortable, no acute distress, well developed, awake and Physically active Orientation/consciousness: o riented to person HEENT: Head: Yes normal to inspection, Yes normocephalic and Yes atraumatic Eyes: General: appearance normal, both eyes and all related structures Neck: Neck: Yes normal visual inspection, Yes no meningeal signs, Yes trachea midline and Yes supple Chest: Chest palpation & inspection: normal inspection of the chest Resp: Other: no appreciable rales, rhonchi, wheezing Effort & Inspection: normal respiratory effort Cardio: Rate: regular rate Rhythm: regular rhythm GI: Inspection: Yes normal to inspection, No Abdominal wall edema and No distended Palpation (GI): Soft to palpation, not firm, nontender, no guarding and not rigid : External Female Exam: normal external appearance Skin: General skin exam: no rashes or lesions noted Neuro: General: oriented to person, moves all extremities, no meningeal signs and no focal motor deficits Extrem: Other: improved edema bilateral upper extremities; no appreciable pitting edema bilateral lower extremities General: Yes normal to inspection, Yes full ROM and Yes capillary refill normal Psych: Appearance: grossly normal Objective Data Labs 08/28/23 06:02 08/28/23 06:02 Labs: Laboratory Results - last 24 hr 08/27/23 08/27/23 08/27/23 10:40 12:04 12:11 WBC 13.7 H RBC 2.90 L Hgb 8.5 L Hct 28.1 L MCV 96.9 MCH 29.3 MCHC 30.2 L RDW 17.6 H Plt Count 290 MPV 9.7 Immature Gran % (Auto) Neut % (Auto) Lymph % (Auto) [facility] % (Auto) Eos % (Auto) Baso % (Auto) Lymph # (Auto) [facility] # (Auto) Eos # (Auto) Baso # (Auto) Abs Immat Gran (auto) Absolute Neuts (auto) Absolute Nucleated RBC 0.490 H Nucleated RBC % (auto) 3.6 H Neutrophils % (Manual) Band Neutrophils % Lymphocytes % (Manual) Monocytes % (Manual) Metamyelocytes % Abs Neuts (Manual) Lymphocytes # (Manual) Monocytes # (Manual) Metamyelocytes # Nucleated RBCs Platelet Estimate Plt Morphology Comment RBC Morphology Polychromasia Hypochromasia Basophilic Stippling Spherocytes PT 11.7 INR 1.0 APTT 25.3 L D VBG pH VBG pCO2 VBG pO2 VBG HCO3 VBG O2 Saturation VBG Base Excess Sodium Potassium Chloride Carbon Dioxide Anion Gap BUN Creatinine Estim Creat Clear Calc Estimated GFR POC Glucose 259 H Random Glucose Calcium Phosphorus Magnesium Total Bilirubin AST ALT Alkaline Phosphatase Total Protein Albumin Random Vancomycin 27.8 H* 08/27/23 08/27/23 08/27/23 17:54 20:30 21:09 WBC RBC Hgb Hct MCV MCH MCHC RDW Plt Count MPV Immature Gran % (Auto) Neut % (Auto) Lymph % (Auto) [place] % (Auto) Eos % (Auto) Baso % (Auto) Lymph # (Auto) [facility]aines # (Auto) Eos # (Auto) Baso # (Auto) Abs Immat Gran (auto) Absolute Neuts (auto) Absolute Nucleated RBC Nucleated RBC % (auto) Neutrophils % (Manual) Band Neutrophils % Lymphocytes % (Manual) Monocytes % (Manual) Metamyelocytes % Abs Neuts (Manual) Lymphocytes # (Manual) Monocytes # (Manual) Metamyelocytes # Nucleated RBCs Platelet Estimate Plt Morphology Comment RBC Morphology Polychromasia Hypochromasia Basophilic Stippling Spherocytes PT INR APTT VBG pH VBG pCO2 VBG pO2 VBG HCO3 VBG O2 Saturation VBG Base Excess Sodium Potassium Chloride Carbon Dioxide Anion Gap BUN Creatinine Estim Creat Clear Calc Estimated GFR POC Glucose 101 147 H Random Glucose Calcium Phosphorus Magnesium Total Bilirubin AST ALT Alkaline Phosphatase Total Protein Albumin Random Vancomycin 19.9 08/27/23 08/28/23 08/28/23 23:48 05:58 06:02 WBC 11.6 H RBC 2.92 L Hgb 8.3 L Hct 28.6 L MCV 97.9 MCH 28.4 MCHC 29.0 L RDW 17.8 H Plt Count 300 MPV 9.4 Immature Gran % (Auto) Cancelled Neut % (Auto) Cancelled Lymph % (Auto) Cancelled Haines % (Auto) Cancelled Eos % (Auto) Cancelled Baso % (Auto) Cancelled Lymph # (Auto) Cancelled Haines # (Auto) Cancelled Eos # (Auto) Cancelled Baso # (Auto) Cancelled Abs Immat Gran (auto) Cancelled Absolute Neuts (auto) Cancelled Absolute Nucleated RBC 0.320 H Nucleated RBC % (auto) 2.8 H Neutrophils % (Manual) 68 Band Neutrophils % 4 Lymphocytes % (Manual) 15 L Monocytes % (Manual) 9 Metamyelocytes % 4 Abs Neuts (Manual) 8.4 H Lymphocytes # (Manual) 1.7 Monocytes # (Manual) 1.0 Metamyelocytes # 0.5 Nucleated RBCs 5 H Platelet Estimate NORMAL Plt Morphology Comment NORMAL RBC Morphology NOTED Polychromasia 1+ (0-2) Hypochromasia 1+ (5-14) Basophilic Stippling 1+ (0-2) Spherocytes 1+ (0-2) PT INR APTT VBG pH 7.52 H VBG pCO2 48 VBG pO2 74 VBG HCO3 39 H VBG O2 Saturation 97.0 VBG Base Excess 15.4 Sodium 144 Potassium 3.1 L D Chloride 99 Carbon Dioxide 37 H Anion Gap 11 L BUN 32 H Creatinine 0.78 Estim Creat Clear Calc 82.1 Estimated GFR > 60 POC Glucose 206 H Random Glucose 114 Calcium 10.6 H Phosphorus 3.5 Magnesium 1.8 Total Bilirubin 0.3 AST 38 H ALT 16 Alkaline Phosphatase 78 Total Protein 7.2 Albumin 3.0 L Random Vancomycin 14.2 L 08/28/23 06:05 WBC RBC Hgb Hct MCV MCH MCHC RDW Plt Count MPV Immature Gran % (Auto) Neut % (Auto) Lymph % (Auto) Haines % (Auto) Eos % (Auto) Baso % (Auto) Lymph # (Auto) Haines # (Auto) Eos # (Auto) Baso # (Auto) Abs Immat Gran (auto) Absolute Neuts (auto) Absolute Nucleated RBC Nucleated RBC % (auto) Neutrophils % (Manual) Band Neutrophils % Lymphocytes % (Manual) Monocytes % (Manual) Metamyelocytes % Abs Neuts (Manual) Lymphocytes # (Manual) Monocytes # (Manual) Metamyelocytes # Nucleated RBCs Platelet Estimate Plt Morphology Comment RBC Morphology Polychromasia Hypochromasia Basophilic Stippling Spherocytes PT INR APTT VBG pH VBG pCO2 VBG pO2 VBG HCO3 VBG O2 Saturation VBG Base Excess Sodium Potassium Chloride Carbon Dioxide Anion Gap BUN Creatinine Estim Creat Clear Calc Estimated GFR POC Glucose 104 Random Glucose Calcium Phosphorus Magnesium Total Bilirubin AST ALT Alkaline Phosphatase Total Protein Albumin Random Vancomycin Microbiology Microbiology Results: Microbiology 08/26/23 11:25 Tracheal Aspirate Gram Stain - Final 08/26/23 11:25 Tracheal Aspirate Sputum Culture - Preliminary Corynebacterium species 08/26/23 14:13 Blood - Venous Blood Culture - Preliminary No growth after 24 hours. 08/26/23 14:13 Blood - Venous Blood Culture - Preliminary No growth after 24 hours. 08/22/23 11:35 Neck Gram Stain - Final 08/22/23 11:35 Neck Routine Culture - Final Group F Streptococcus 08/19/23 09:51 Blood - Venous Blood Culture - Final No growth after 5 days. 08/19/23 09:51 Blood - Venous Blood Culture - Final No growth after 5 days. 08/21/23 17:34 Tracheal Aspirate Gram Stain - Final 08/21/23 17:34 Tracheal Aspirate Sputum Culture - Final Corynebacterium species 08/22/23 11:42 Urine Catheterized - Adan Catheter Urine Culture - Final No growth. 08/03/23 16:38 Sputum - Expectorated Gram Stain - Final 08/03/23 16:38 Sputum - Expectorated Sputum Culture - Final Aspergillus fumigatus 08/02/23 14:20 Blood - Venous Blood Culture - Final No growth after 5 days. 08/02/23 13:36 Blood - Venous Blood Culture - Final No growth after 5 days. Progress Note: A&P Assessment and plan (1) Pneumonia: Status: Acute (2) Tracheitis: Status: Acute (3) Acute on chronic respiratory failure with hypoxia and hypercapnia: Status: Acute (4) Acute exacerbation of chronic obstructive airways disease: Status: Acute (5) COPD (chronic obstructive pulmonary disease): Status: Acute (6) CHITO (obstructive sleep apnea): Status: Acute (7) Obesity hypoventilation syndrome: Status: Acute (8) Status post tracheostomy: Status: Acute (9) Status post insertion of percutaneous endoscopic gastrostomy (PEG) tube: Status: Acute (10) Type 2 diabetes mellitus: Status: Acute Plan Patient is a 53 Y F w/ metabolic syndrome c/b morbid obesity, tobacco use, COPD, OHS, CHITO, c/b chronic mixed respiratory failure, and methadone use, reportedly on BiPAP PM, well-known to our institution d/t numerous admissions d/t acute on chronic respiratory failure, most recent admission admitted 08/01, c/b intubation, failed extubation, s/p trach/PEG on 08/11 N: encephalopathy, likely toxic-metabolic, likely d/t infection, tracheitis and pneumonia, improving CV: no acute issues; atrial fibrillation, on home diltiazem R: COPD, OHS, CHITO, c/b acute on chronic mixed respiratory failure, s/p trach on 08/11; wean ventilator as tolerated GI: s/p PEG on 08/11, c/b displacement; emesis on tube feeds, now held; advance as tolerated; appreciate surgery recommendations : no acute issues; diuresis w/ furosemide/acetazolamide H: bilateral upper extremity venous thrombus, on treatment-dose enoxaparin ID: tracheitis, pnuemonia; on vancomycin, zosyn E: TIIDM, c/b hyperglycemia; insulin regimen S: opioid dependence, on home methadone; awaiting facility placement Quality Stroke Does the patient have a stroke diagnosis?: No VTE Prior VTE?: Yes Approximate Date of Prior VTE: 08/27/23 VTE Risk Level:: Medical - moderate - high VTE Device Contraindication: Treatment Not Indicated VTE Drug Contraindication: N/A - Med Ordered
[2023-08-28] MEDS: 0.9 % Sodium Chloride Flush 3 ML SYRINGE IVFLUSH ×3 (08:23→22:12)
[2023-08-28] MEDS: Insulin Glargine,Hum.rec.anlog 100 UNIT/ML 10 ML VIAL 30 UNIT SUBCUT ×2 (08:24→20:27)
[2023-08-28] MEDS: Potassium Chloride Packet 20 MEQ PACKET 40 MEQ PO (08:24)
[2023-08-28] MEDS: Furosemide 40 MG/4 ML VIAL IVPUSH ×2 (08:25→18:10)
[2023-08-28] MEDS: Famotidine/PF 20 MG/2 ML VIAL IVPUSH (08:25)
[2023-08-28] MEDS: lamoTRIgine 100 MG TABLET 150 MG PO ×2 (08:25→20:05)
[2023-08-28] MEDS: dilTIAZem HCL 60 MG TABLET PO ×4 (08:25→20:05)
[2023-08-28] MEDS: Nystatin Oral Susp 500,000 UNIT/5 ML ORAL.SUSP 100000 UNIT BUCCAL ×3 (08:26→20:03)
[2023-08-28] MEDS: methADONE HCl 5 MG TABLET 15 MG PO ×2 (08:26→20:04)
[2023-08-28] MEDS: Chlorhexidine Gluc Oral Rinse 15 ML MOUTHWASH BUCCAL ×3 (08:26→20:03)
[2023-08-28] MEDS: acetaZOLAMIDE sodium 500 MG VIAL 250 MG IVPUSH (08:40)
[2023-08-28] MEDS: Calcitonin,Salmon,Synth Nasal 3.7 ML BOTTLE 1 SPRAY NOSTRIL-B (08:40)
--- NOTE | 2023-08-28 08:58 | MHC.CLN ---
F/U PT WITH EPISODE OF VOMITING ALSO NOTED BM X1 YESTERDAY PT TOLERATING GLUCERNA TUBE FEED AT 30ML/HR WITH NO LEAKAGE PER NSG PROVIDING 720KCALS, 30G PROTEIN, 614ML FREE WATER FROM FORMULA REVIEWED LABS DISCUSSED WITH MD WITH PLAN TO TITRATE TF TO MAX GOAL RATE RECOMMEND SLOWLY INCREASING GLUCERNA TF TO MAX GOAL RATE 55ML/HR WITH 30ML PROSOURCE BID AND 240ML FREE WATER FLUSHES Q 8 HRS TO PROVIDE 1440KCALS (24KCALS/KG), 85G PROTEIN (1.4G/KG), 1846ML TOTAL FREE WATER FROM FORMULA AND FLUSHES (31ML/KG) MONITOR TOLERANCE, RESIDUALS AND LYTES IF UNABLE TO TITRATE TF TO MAX GOAL RATE CAN INCREASE PROSOURCE 30ML FROM BID TO TID R/T WOUND HEALING
--- NOTE | 2023-08-28 09:17 | MHC.CM.PN ---
Pt continues care in ICU: new development of PNA. On IV ATB. Transfer to [facility] postponed until medically stable. CM to follow
[2023-08-28] MEDS: Albumin Human 25 % 50 ML 100 ML IV (09:20)
[2023-08-28] MEDS: Enoxaparin Sodium 100 MG/ML SYRINGE 90 MG SUBCUT ×2 (10:00→22:11)
[2023-08-28] MEDS: vancomycin HCL 500 MG in 0.9 % Sodium Chloride 100 ML 110 MG IV (10:02)
[2023-08-28] MEDS: clonazePAM 1 MG TABLET PO ×2 (10:26→20:15)
[2023-08-28 12:08] LABS: Glucose, Whole Blood 144 mg/dL (60-115)
--- NOTE | 2023-08-28 15:52 | HO.WOUND ---
Wound Consult:Follow up 53yr old F?admitted to [facility] [place] on? 08/02/23 - See progress notes and H&P for detailed history.?Patient currently ICU level of care. New wound consult placed for Trach site concerns. Patient remains ICU level of care. Trach site assessed appears unchanged from yesterdays assessment however patient movement has changed which appears to impact trach plate location at any given moment. Trach appears to be pulling toward vent adjusted several times while at bedside. Trach ties assessed and tightened - despite this trach movement noted. Provider aware Respiratory to bedside aware. Given patients level of movement and patient anatomy little can be done aside from frequent Trach care and split gauze dressing changes little intervention available to minimize movement Direct care team advised to continue with frequent trach care and position adjustment in addition to Mepilex Lite placement. Mepilex Lite was cut in split gauze fashion and placed under plate and around trach. This will absorb moisture away from tissue and aid in protection from friction and direct pressure. Discussed with direct care nurse and recommended increase frequency of split gauze changes as needed.
[2023-08-28 18:18] LABS: Glucose, Whole Blood 149 mg/dL (60-115)
[2023-08-28 20:28] LABS: Glucose, Whole Blood 147 mg/dL (60-115)
[2023-08-28] MEDS: vancomycin HCL 500 MG in 0.9 % Sodium Chloride 100 ML 100 MG IV (22:11)
[2023-08-29] VITALS (37 sets, daily range): BP systolic 94–126; BP diastolic 49–87; PULSE 83–125; RESP 10–32; TEMP 34.9–36.7; O2SAT 91–100; BMI 38.0
[2023-08-29 00:15] LABS: Glucose, Whole Blood 148 mg/dL (60-115)
[2023-08-29] MEDS: Piperacillin Sodium/Tazobactam 4.5 GM in 0.9 % Sodium Chloride 100 ML IV ×4 (02:18→20:09)
--- NOTE | 2023-08-29 04:16 | PC.NURSE ---
CARE ASSUMED 7PM...REMAINS CPAP/PSV VENT SUPPORT...AWAKE AND RESTLESS AT SHIFT CHANGE...MC...BRIEFLY TRACKS SPEAKER BUT DOES NOT FOLLOW COMMANDS...BANGING HANDS AGAINST SIDE RAILS OF BED...HS LAMICTAL AND METHADONE GIVEN 8:05PM...PRN KLONOPIN GIVEN 8:15PM PER ICU FURNITURE SALESPERSON..GRADUAL RESTFUL EFFECT...BP STABLE...Ve 5-7 L/M...ETCO2 58-68....PATIENT PREVIOUSLY BLADDER SCANNED 282ML AT 6:30PM PER SHIFT REPORT....INCONTINAT LARGE AMOUNT URINE AND MODERAT LOOSE BROWN STOOL X2 OVERNIGHT ...NSR..HR 80'S-90'S
[2023-08-29 05:09] LABS: VBG Base Excess 14.9 mmol/L; VBG HCO3 41 mmol/L (22-26); VBG pCO2 59 mmHg; VBG pH 7.44 (7.32-7.43); VBG pO2 59 mmHg
[2023-08-29 05:16] LABS: Venous Blood Gas Refer to POC result
[2023-08-29 05:17] LABS: Hematocrit 28.1 % (37.0-47.0); Hemoglobin 8.2 g/dl (12.0-16.0); Mean Corpuscular HGB Conc 29.2 g/dl (31.0-35.0); Mean Corpuscular Volume 99.3 fL (80.0-98.0); Mean Platelet Volume 9.6 fL (9.4-12.3); NRBC Pct Auto 2.5 /100WBC (0.0-0.2); Platelet Count 296 X10*3/uL (160-400); Red Blood Count 2.83 X10*6/uL (4.20-5.50); Red Cell Distribution Width 18.3 % (11.0-16.0); White Blood Count 10.8 X10*3/uL (4.8-10.8)
[2023-08-29 05:37] LABS: Band Neutrophils Percent 9 % (3-5); Lymphocytes Absolute Manual 1.3 X10*3/uL (1.2-4.9); Lymphocytes Percent Manual 12 % (20-40); Metamyelocytes Absolute 0.2 X10*3/uL; Metamyelocytes Percent 2 %; Monocytes Absolute Manual 0.8 X10*3/uL (0.1-1.2); Monocytes Percent Manual 7 % (2-11); Neutrophils Absolute Manual 8.5 X10*3/uL (2.0-8.3); Neutrophils Percent Manual 70 % (45-73); Nucleated Red Blood Cells 2 /100WBC (0-0)
[2023-08-29 05:38] LABS: Hypochromasia 1+ (5-14) /OIF; Platelet Estimate NORMAL (NORMAL); Platelet Morphology Comment NORMAL; Polychromasia 2+ (3-5) /OIF; RBC Morphology NOTED; Spherocytes 1+ (0-2) /OIF; Stomatocytes 1+ (5-14) /OIF
[2023-08-29 05:46] LABS: Glucose, Whole Blood 108 mg/dL (60-115)
[2023-08-29 05:54] LABS: Alanine Aminotransferase 17 U/L (0-31); Alkaline Phosphatase 83 U/L (39-117); Anion Gap 14 (12-20); Aspartate Amino Transferase 36 U/L (5-31); Bilirubin Total 0.4 mg/dL (0.0-1.0); Blood Urea Nitrogen 23 mg/dL (9-16); Calcium 9.9 mg/dL (8.4-10.2); Carbon Dioxide 36 mmol/L (22-29); Chloride 99 mmol/L (96-108); Creatinine Clr Calc Pharmacy 83.5; Estimated Glomerular Filt Rate > 60; Glucose Random 122 mg/dL (60-115); Magnesium 1.7 mg/dL (1.6-2.6); Phosphorus 4.4 mg/dL (2.7-4.5); Potassium 3.1 mmol/L (3.3-5.1); Sodium 146 mmol/L (135-145); Total Protein 7.1 g/dL (6.5-8.0)
[2023-08-29] MEDS: Potassium Chloride Packet 20 MEQ PACKET 40 MEQ PO (06:16)
[2023-08-29] MEDS: Potassium Chloride/H20 10 MEQ/100 ML PIGGYBACK 100 MEQ IV ×2 (06:16→08:22)
[2023-08-29] MEDS: Albuterol/Iprat 2.5/0.5MG 3 ML AMPUL.NEB INHALE ×4 (08:02→20:18)
--- NOTE | 2023-08-29 08:22 | PM.CCPN ---
Subjective Subjective Date of Service: 08/29/23 Interval History: no significant overnight events Critical Care Time (minutes): 60 Physical Exam Vital Signs: Vital Signs: Last Vital Signs Temp 98.0 F 08/29/23 08:00 Pulse 113 H 08/29/23 08:04 Resp 18 08/29/23 08:04 BP 105/82 08/29/23 08:00 Pulse Ox 96 08/29/23 08:00 O2 Del Method Mechanical Ventil ation 08/29/23 08:00 O2 Flow Rate 10 08/25/23 15:58 FiO2 35 08/29/23 08:04 BMI result Body Mass Index 38.0 Const: General: cooperative, comfortable, no acute distress, well developed, alert, awake and Physically active HEENT: Head: Yes normal to inspection, Yes normocephalic and Yes atraumatic Eyes: General: appearance normal, both eyes and all related structures Neck: Other: tracheostomy midline, clean, dry, intact Neck: Yes normal visual inspection, Yes full ROM, Yes no meningeal signs, Yes trachea midline and Yes supple Chest: Chest palpation & inspection: normal inspection of the chest Resp: Other: some appreciable rhonchi L anterior lung matthews; no appreciable rales, wheezing Effort & Inspection: normal respiratory effort Cardio: Rate: tachycardic Rhythm: regular rhythm GI: Other: gastrostomy tube clean, dry, intact Inspection: Yes normal to inspection, No Abdominal wall edema and No distended Palpation (GI): Soft to palpation, not firm, nontender, no guarding and not rigid : External Female Exam: normal external appearance Skin: General skin exam: no rashes or lesions noted Neuro: General: tone normal, moves all extremities, no meningeal signs and no focal motor deficits Extrem: Other: some erythema L upper extremity General: Yes full ROM and Yes capillary refill normal Psych: Appearance: grossly normal Objective Data Labs 08/29/23 05:03 08/29/23 05:03 Labs: Laboratory Results - last 24 hr 08/28/23 08/28/23 08/28/23 11:13 12:06 18:15 WBC RBC Hgb Hct MCV MCH MCHC RDW Plt Count MPV Immature Gran % (Auto) Neut % (Auto) Lymph % (Auto) [place] % (Auto) Eos % (Auto) Baso % (Auto) Lymph # (Auto) [place] # (Auto) Eos # (Auto) Baso # (Auto) Abs Immat Gran (auto) Absolute Neuts (auto) Absolute Nucleated RBC Nucleated RBC % (auto) Neutrophils % (Manual) Band Neutrophils % Lymphocytes % (Manual) Monocytes % (Manual) Metamyelocytes % Abs Neuts (Manual) Lymphocytes # (Manual) Monocytes # (Manual) Metamyelocytes # Nucleated RBCs Platelet Estimate Plt Morphology Comment RBC Morphology Polychromasia Hypochromasia Spherocytes Stomatocytes PT 12.0 INR 1.0 VBG pH VBG pCO2 VBG pO2 VBG HCO3 VBG O2 Saturation VBG Base Excess Sodium Potassium Chloride Carbon Dioxide Anion Gap BUN Creatinine Estim Creat Clear Calc Estimated GFR POC Glucose 144 H 149 H Random Glucose Calcium Phosphorus Magnesium Total Bilirubin AST ALT Alkaline Phosphatase Total Protein Albumin 08/28/23 08/29/23 08/29/23 20:24 00:11 05:00 WBC RBC Hgb Hct MCV MCH MCHC RDW Plt Count MPV Immature Gran % (Auto) Neut % (Auto) Lymph % (Auto) [place] % (Auto) Eos % (Auto) Baso % (Auto) Lymph # (Auto) [place] # (Auto) Eos # (Auto) Baso # (Auto) Abs Immat Gran (auto) Absolute Neuts (auto) Absolute Nucleated RBC Nucleated RBC % (auto) Neutrophils % (Manual) Band Neutrophils % Lymphocytes % (Manual) Monocytes % (Manual) Metamyelocytes % Abs Neuts (Manual) Lymphocytes # (Manual) Monocytes # (Manual) Metamyelocytes # Nucleated RBCs Platelet Estimate Plt Morphology Comment RBC Morphology Polychromasia Hypochromasia Spherocytes Stomatocytes PT INR VBG pH 7.44 H VBG pCO2 59 VBG pO2 59 VBG HCO3 41 H VBG O2 Saturation 88.0 VBG Base Excess 14.9 Sodium Potassium Chloride Carbon Dioxide Anion Gap BUN Creatinine Estim Creat Clear Calc Estimated GFR POC Glucose 147 H 148 H Random Glucose Calcium Phosphorus Magnesium Total Bilirubin AST ALT Alkaline Phosphatase Total Protein Albumin 08/29/23 08/29/23 05:03 05:43 WBC 10.8 RBC 2.83 L Hgb 8.2 L Hct 28.1 L MCV 99.3 H MCH 29.0 MCHC 29.2 L RDW 18.3 H Plt Count 296 MPV 9.6 Immature Gran % (Auto) Cancelled Neut % (Auto) Cancelled Lymph % (Auto) Cancelled [place] % (Auto) Cancelled Eos % (Auto) Cancelled Baso % (Auto) Cancelled Lymph # (Auto) Cancelled [place] # (Auto) Cancelled Eos # (Auto) Cancelled Baso # (Auto) Cancelled Abs Immat Gran (auto) Cancelled Absolute Neuts (auto) Cancelled Absolute Nucleated RBC 0.270 H Nucleated RBC % (auto) 2.5 H Neutrophils % (Manual) 70 Band Neutrophils % 9 H Lymphocytes % (Manual) 12 L Monocytes % (Manual) 7 Metamyelocytes % 2 Abs Neuts (Manual) 8.5 H Lymphocytes # (Manual) 1.3 Monocytes # (Manual) 0.8 Metamyelocytes # 0.2 Nucleated RBCs 2 H Platelet Estimate NORMAL Plt Morphology Comment NORMAL RBC Morphology NOTED Polychromasia 2+ (3-5) Hypochromasia 1+ (5-14) Spherocytes 1+ (0-2) Stomatocytes 1+ (5-14) PT INR VBG pH VBG pCO2 VBG pO2 VBG HCO3 VBG O2 Saturation VBG Base Excess Sodium 146 H Potassium 3.1 L Chloride 99 Carbon Dioxide 36 H Anion Gap 14 BUN 23 H Creatinine 0.77 Estim Creat Clear Calc 83.5 Estimated GFR > 60 POC Glucose 108 Random Glucose 122 H Calcium 9.9 D Phosphorus 4.4 Magnesium 1.7 Total Bilirubin 0.4 AST 36 H ALT 17 Alkaline Phosphatase 83 Total Protein 7.1 Albumin 3.0 L Microbiology Microbiology Results: Microbiology 08/26/23 14:13 Blood - Venous Blood Culture - Preliminary No growth after 48 hours. 08/26/23 14:13 Blood - Venous Blood Culture - Preliminary No growth after 48 hours. 08/26/23 11:25 Tracheal Aspirate Gram Stain - Final 08/26/23 11:25 Tracheal Aspirate Sputum Culture - Final Corynebacterium species 08/22/23 11:35 Neck Gram Stain - Final 08/22/23 11:35 Neck Routine Culture - Final Group F Streptococcus 08/19/23 09:51 Blood - Venous Blood Culture - Final No growth after 5 days. 08/19/23 09:51 Blood - Venous Blood Culture - Final No growth after 5 days. 08/21/23 17:34 Tracheal Aspirate Gram Stain - Final 08/21/23 17:34 Tracheal Aspirate Sputum Culture - Final Corynebacterium species 08/22/23 11:42 Urine Catheterized - Adan Catheter Urine Culture - Final No growth. 08/03/23 16:38 Sputum - Expectorated Gram Stain - Final 08/03/23 16:38 Sputum - Expectorated Sputum Culture - Final Aspergillus fumigatus 08/02/23 14:20 Blood - Venous Blood Culture - Final No growth after 5 days. 08/02/23 13:36 Blood - Venous Blood Culture - Final No growth after 5 days. Progress Note: A&P Assessment and plan (1) Acute on chronic respiratory failure with hypoxia and hypercapnia: Status: Acute (2) Acute exacerbation of chronic obstructive airways disease: Status: Acute (3) Status post tracheostomy: Status: Acute (4) COPD (chronic obstructive pulmonary disease): Status: Acute (5) Obesity hypoventilation syndrome: Status: Acute (6) CHITO (obstructive sleep apnea): Status: Acute (7) Status post insertion of percutaneous endoscopic gastrostomy (PEG) tube: Status: Acute (8) Type 2 diabetes mellitus: Status: Acute (9) Opioid dependence: Status: Acute Plan Patient is a 53 Y F w/ metabolic syndrome c/b morbid obesity, tobacco use, COPD, OHS, CHITO, c/b chronic mixed respiratory failure, and methadone use, reportedly on BiPAP PM, well-known to our institution d/t numerous admissions d/t acute on chronic respiratory failure, most recent admission admitted 08/01, c/b intubation, failed extubation, s/p trach/PEG on 08/11 N: encephalopathy, likely toxic-metabolic, likely d/t infection, tracheitis and pneumonia, improving CV: no acute issues; atrial fibrillation, on home diltiazem R: COPD, OHS, CHITO, c/b acute on chronic mixed respiratory failure, s/p trach on 08/11; wean ventilator as tolerated GI: s/p PEG on 08/11, c/b displacement, leaking, now resolved; tube feeds : no acute issues; diuresis w/ furosemide/acetazolamide H: bilateral upper extremity venous thrombus, on treatment-dose enoxaparin ID: tracheitis, pnuemonia; on vancomycin, zosyn E: TIIDM, c/b hyperglycemia; insulin regimen S: opioid dependence, on home methadone; awaiting facility placement Quality Stroke Does the patient have a stroke diagnosis?: No VTE Prior VTE?: Yes Approximate Date of Prior VTE: 08/27/23 VTE Risk Level:: Medical - moderate - high VTE Device Contraindication: Treatment Not Indicated VTE Drug Contraindication: N/A - Med Ordered
[2023-08-29] MEDS: Chlorhexidine Gluc Oral Rinse 15 ML MOUTHWASH BUCCAL ×3 (08:23→20:16)
[2023-08-29] MEDS: Furosemide 40 MG/4 ML VIAL IVPUSH ×2 (08:23→18:06)
[2023-08-29] MEDS: Famotidine/PF 20 MG/2 ML VIAL IVPUSH (08:23)
[2023-08-29] MEDS: acetaZOLAMIDE sodium 500 MG VIAL 250 MG IVPUSH (08:23)
[2023-08-29] MEDS: Insulin Glargine,Hum.rec.anlog 100 UNIT/ML 10 ML VIAL 30 UNIT SUBCUT ×2 (08:24→21:18)
[2023-08-29] MEDS: methADONE HCl 5 MG TABLET 15 MG PO ×2 (08:24→20:15)
[2023-08-29] MEDS: lamoTRIgine 100 MG TABLET 150 MG PO ×2 (08:24→20:16)
[2023-08-29] MEDS: dilTIAZem HCL 60 MG TABLET PO ×4 (08:25→20:15)
[2023-08-29] MEDS: clonazePAM 1 MG TABLET PO (08:25)
[2023-08-29] MEDS: 0.9 % Sodium Chloride Flush 3 ML SYRINGE IVFLUSH ×2 (08:54→15:19)
[2023-08-29] MEDS: Calcitonin,Salmon,Synth Nasal 3.7 ML BOTTLE 1 SPRAY NOSTRIL-B (08:54)
[2023-08-29 08:57] LABS: Vancomycin Random 18.8 mcg/mL (15-20)
--- NOTE | 2023-08-29 10:17 | MHC.CLN ---
F/U REVIEWED LABS TF AT MAX GOAL RATE WITH LOW RESIDUALS CONTINUE GLUCERNA TF AT MAX GOAL RATE 55ML/HR WITH 30ML PROSOURCE BID AND 240ML FREE WATER FLUSHES Q 8 HRS PROVIDES 1440KCALS (24KCALS/KG), 85G PROTEIN (1.4G/KG), 1846ML TOTAL FREE WATER FROM FORMULA AND FLUSHES (31ML/KG) MONITOR TOLERANCE, RESIDUALS AND LYTES RD CAN BE REACHED VIA TIGER CONNECT DURING OFF HOURS IF NEEDED
[2023-08-29] MEDS: Enoxaparin Sodium 100 MG/ML SYRINGE 90 MG SUBCUT ×2 (11:23→21:23)
[2023-08-29 12:11] LABS: Glucose, Whole Blood 115 mg/dL (60-115)
[2023-08-29] MEDS: vancomycin HCL 500 MG in 0.9 % Sodium Chloride 100 ML 110 MG IV (13:25)
--- NOTE | 2023-08-29 15:48 | MHC.CM.PN ---
CM SPOKE WITH LIAISON FROM [facility] WHO STATES SHE WILL NOT BE ABLE TO TAKE PT UNTIL FRIDAY OR FRIDAY NEXT WEEK. LIAISON IS REQUESTING PT BE ON TRACH MASK AND TOLERATE FOR 12 HOURS . CM WILL CONTINUE TO UPDATE
[2023-08-29 17:28] LABS: Glucose, Whole Blood 123 mg/dL (60-115)
[2023-08-29] MEDS: Nystatin Oral Susp 500,000 UNIT/5 ML ORAL.SUSP 100000 UNIT BUCCAL (20:15)
[2023-08-29 21:02] LABS: Glucose, Whole Blood 129 mg/dL (60-115)
[2023-08-30] VITALS (38 sets, daily range): BP systolic 92–136; BP diastolic 46–96; PULSE 87–128; RESP 9–30; TEMP 34.7–38.2; O2SAT 89–100; BMI 37.6
[2023-08-30 00:05] LABS: Glucose, Whole Blood 99 mg/dL (60-115)
[2023-08-30] MEDS: 0.9 % Sodium Chloride Flush 3 ML SYRINGE IVFLUSH ×4 (01:00→23:12)
[2023-08-30] MEDS: vancomycin HCL 500 MG in 0.9 % Sodium Chloride 100 ML 110 MG IV ×2 (02:33→14:38)
[2023-08-30] MEDS: Piperacillin Sodium/Tazobactam 4.5 GM in 0.9 % Sodium Chloride 100 ML IV ×4 (03:42→20:59)
[2023-08-30 05:57] LABS: VBG Base Excess 15.6 mmol/L; VBG HCO3 37 mmol/L (22-26); VBG pCO2 33 mmHg; VBG pH 7.65 (7.32-7.43); VBG pO2 66 mmHg
[2023-08-30 05:59] LABS: Venous Blood Gas Refer to POC result
[2023-08-30 06:02] LABS: Hematocrit 32.5 % (37.0-47.0); Hemoglobin 9.4 g/dl (12.0-16.0); Mean Corpuscular HGB Conc 28.9 g/dl (31.0-35.0); Mean Corpuscular Hemoglobin 28.4 pg (27.0-33.0); Mean Corpuscular Volume 98.2 fL (80.0-98.0); Mean Platelet Volume 9.6 fL (9.4-12.3); NRBC Pct Auto 3.4 /100WBC (0.0-0.2); Platelet Count 274 X10*3/uL (160-400); Red Blood Count 3.31 X10*6/uL (4.20-5.50); Red Cell Distribution Width 18.7 % (11.0-16.0); White Blood Count 8.8 X10*3/uL (4.8-10.8)
[2023-08-30 06:21] LABS: Alanine Aminotransferase 19 U/L (0-31); Albumin Level 2.9 g/dL (3.5-5.0); Alkaline Phosphatase 104 U/L (39-117); Anion Gap 15 (12-20); Aspartate Amino Transferase 48 U/L (5-31); Bilirubin Total 0.4 mg/dL (0.0-1.0); Blood Urea Nitrogen 14 mg/dL (9-16); Calcium 9.8 mg/dL (8.4-10.2); Carbon Dioxide 31 mmol/L (22-29); Chloride 102 mmol/L (96-108); Creatinine Clr Calc Pharmacy 87.5; Estimated Glomerular Filt Rate > 60; Glucose Random 63 mg/dL (60-115); Magnesium 2.1 mg/dL (1.6-2.6); Phosphorus 3.9 mg/dL (2.7-4.5); Potassium 3.4 mmol/L (3.3-5.1); Sodium 145 mmol/L (135-145); Total Protein 7.3 g/dL (6.5-8.0)
[2023-08-30 06:24] LABS: Glucose, Whole Blood 79 mg/dL (60-115)
[2023-08-30 06:27] LABS: Band Neutrophils Percent 6 % (3-5); Eosinophils Absolute Manual 0.1 X10*3/uL (0.0-0.4); Eosinophils Percent Manual 1 % (0-4); Lymphocytes Absolute Manual 1.2 X10*3/uL (1.2-4.9); Lymphocytes Percent Manual 14 % (20-40); Metamyelocytes Absolute 0.2 X10*3/uL; Metamyelocytes Percent 2 %; Monocytes Absolute Manual 0.3 X10*3/uL (0.1-1.2); Monocytes Percent Manual 3 % (2-11); Myelocytes Absolute 0.1 X10*/uL; Myelocytes Percent 1 %; Neutrophils Percent Manual 73 % (45-73); Nucleated Red Blood Cells 3 /100WBC (0-0)
[2023-08-30 06:28] LABS: Hypochromasia 1+ (5-14) /OIF; Platelet Estimate NORMAL (NORMAL); Platelet Morphology Comment NORMAL; Polychromasia 2+ (3-5) /OIF; RBC Morphology NOTED; Schistocytes 1+ (0-2) /OIF; Spherocytes 1+ (0-2) /OIF; Stomatocytes 1+ (5-14) /OIF; Toxic Granulation PRESENT
[2023-08-30] MEDS: Dextrose 10 % 250 ML 750 ML IV ×2 (06:29→11:45)
[2023-08-30 07:02] LABS: Glucose, Whole Blood 185 mg/dL (60-115)
[2023-08-30] MEDS: Albuterol/Iprat 2.5/0.5MG 3 ML AMPUL.NEB INHALE ×4 (07:36→19:59)
--- NOTE | 2023-08-30 07:57 | P.PNCC_ITS ---
Subjective Subjective Date of Service: 08/30/23 Interval History: no significant overnight events Critical Care Time (minutes): 60 Physical Exam 2 Vital Signs: Vital Signs: Last Vital Signs Temp 99.3 F 08/30/23 05:00 Pulse 128 H 08/30/23 07:36 Resp 30 H 08/30/23 07:36 BP 115/62 08/30/23 07:00 Pulse Ox 92 08/30/23 07:00 O2 Del Method Mechanical Ventil ation 08/30/23 07:00 O2 Flow Rate 35 08/29/23 18:00 FiO2 35 08/30/23 07:36 BMI result Body Mass Index 37.6 Const: Other: interactive, though not consistently following commands General: comfortable, no acute distress, well developed, alert, awake and Physically active HEENT: Head: Yes normal to inspection, Yes normocephalic and Yes atraumatic Eyes: General: appearance normal, both eyes and all related structures Neck: Other: tracheostomy midline, some erythema, though no fluctuance, induration Neck: Yes normal visual inspection, Yes full ROM, Yes no meningeal signs, Yes trachea midline and Yes supple Chest: Chest palpation & inspection: normal inspection of the chest Resp: Other: no appreciable rales, rhonchi, wheezing Effort & Inspection: normal respiratory effort Cardio: Rate: tachycardic Rhythm: regular rhythm GI: Inspection: Yes normal to inspection, No Abdominal wall edema and No distended Palpation (GI): Soft to palpation, not firm, nontender, no guarding and not rigid : External Female Exam: normal external appearance Skin: General skin exam: no rashes or lesions noted Neuro: General: tone normal, moves all extremities, no meningeal signs and no focal motor deficits Extrem: General: Yes normal to inspection, Yes full ROM, Yes capillary refill normal and Yes no clubbing, cyanosis or edema Psych: Appearance: grossly normal Objective Data Labs 08/30/23 05:50 08/30/23 05:50 Labs: Laboratory Results - last 24 hr 08/29/23 08/29/23 08/29/23 08:30 12:08 17:18 WBC RBC Hgb Hct MCV MCH MCHC RDW Plt Count MPV Immature Gran % (Auto) Neut % (Auto) Lymph % (Auto) [place] % (Auto) Eos % (Auto) Baso % (Auto) Lymph # (Auto) [place] # (Auto) Eos # (Auto) Baso # (Auto) Abs Immat Gran (auto) Absolute Neuts (auto) Absolute Nucleated RBC Nucleated RBC % (auto) Neutrophils % (Manual) Band Neutrophils % Lymphocytes % (Manual) Monocytes % (Manual) Eosinophils % (Manual) Metamyelocytes % Myelocytes % Abs Neuts (Manual) Lymphocytes # (Manual) Monocytes # (Manual) Eosinophils # (Manual) Metamyelocytes # Myelocytes # Nucleated RBCs Toxic Granulation Platelet Estimate Plt Morphology Comment RBC Morphology Polychromasia Hypochromasia Spherocytes Stomatocytes Schistocytes VBG pH VBG pCO2 VBG pO2 VBG HCO3 VBG O2 Saturation VBG Base Excess Sodium Potassium Chloride Carbon Dioxide Anion Gap BUN Creatinine Estim Creat Clear Calc Estimated GFR POC Glucose 115 123 H Random Glucose Calcium Phosphorus Magnesium Total Bilirubin AST ALT Alkaline Phosphatase Total Protein Albumin Random Vancomycin 18.8 08/29/23 08/29/23 08/30/23 20:59 23:59 05:48 WBC RBC Hgb Hct MCV MCH MCHC RDW Plt Count MPV Immature Gran % (Auto) Neut % (Auto) Lymph % (Auto) [place] % (Auto) Eos % (Auto) Baso % (Auto) Lymph # (Auto) [place] # (Auto) Eos # (Auto) Baso # (Auto) Abs Immat Gran (auto) Absolute Neuts (auto) Absolute Nucleated RBC Nucleated RBC % (auto) Neutrophils % (Manual) Band Neutrophils % Lymphocytes % (Manual) Monocytes % (Manual) Eosinophils % (Manual) Metamyelocytes % Myelocytes % Abs Neuts (Manual) Lymphocytes # (Manual) Monocytes # (Manual) Eosinophils # (Manual) Metamyelocytes # Myelocytes # Nucleated RBCs Toxic Granulation Platelet Estimate Plt Morphology Comment RBC Morphology Polychromasia Hypochromasia Spherocytes Stomatocytes Schistocytes VBG pH 7.65 H* VBG pCO2 33 VBG pO2 66 VBG HCO3 37 H VBG O2 Saturation 97.0 VBG Base Excess 15.6 Sodium Potassium Chloride Carbon Dioxide Anion Gap BUN Creatinine Estim Creat Clear Calc Estimated GFR POC Glucose 129 H 99 Random Glucose Calcium Phosphorus Magnesium Total Bilirubin AST ALT Alkaline Phosphatase Total Protein Albumin Random Vancomycin 08/30/23 08/30/23 08/30/23 05:50 06:01 06:58 WBC 8.8 RBC 3.31 L Hgb 9.4 L Hct 32.5 L MCV 98.2 H MCH 28.4 MCHC 28.9 L RDW 18.7 H Plt Count 274 MPV 9.6 Immature Gran % (Auto) Cancelled Neut % (Auto) Cancelled Lymph % (Auto) Cancelled [place] % (Auto) Cancelled Eos % (Auto) Cancelled Baso % (Auto) Cancelled Lymph # (Auto) Cancelled [place] # (Auto) Cancelled Eos # (Auto) Cancelled Baso # (Auto) Cancelled Abs Immat Gran (auto) Cancelled Absolute Neuts (auto) Cancelled Absolute Nucleated RBC 0.300 H Nucleated RBC % (auto) 3.4 H Neutrophils % (Manual) 73 Band Neutrophils % 6 H Lymphocytes % (Manual) 14 L Monocytes % (Manual) 3 Eosinophils % (Manual) 1 Metamyelocytes % 2 Myelocytes % 1 Abs Neuts (Manual) 7.0 Lymphocytes # (Manual) 1.2 Monocytes # (Manual) 0.3 Eosinophils # (Manual) 0.1 Metamyelocytes # 0.2 Myelocytes # 0.1 Nucleated RBCs 3 H Toxic Granulation PRESENT Platelet Estimate NORMAL Plt Morphology Comment NORMAL RBC Morphology NOTED Polychromasia 2+ (3-5) Hypochromasia 1+ (5-14) Spherocytes 1+ (0-2) Stomatocytes 1+ (5-14) Schistocytes 1+ (0-2) VBG pH VBG pCO2 VBG pO2 VBG HCO3 VBG O2 Saturation VBG Base Excess Sodium 145 Potassium 3.4 Chloride 102 Carbon Dioxide 31 H Anion Gap 15 BUN 14 Creatinine 0.73 Estim Creat Clear Calc 87.5 Estimated GFR > 60 POC Glucose 79 185 H Random Glucose 63 Calcium 9.8 Phosphorus 3.9 Magnesium 2.1 Total Bilirubin 0.4 AST 48 H ALT 19 Alkaline Phosphatase 104 Total Protein 7.3 Albumin 2.9 L Random Vancomycin Microbiology Microbiology Results: Microbiology 08/26/23 14:13 Blood - Venous Blood Culture - Preliminary No growth after 48 hours. 08/26/23 14:13 Blood - Venous Blood Culture - Preliminary No growth after 48 hours. 08/26/23 11:25 Tracheal Aspirate Gram Stain - Final 08/26/23 11:25 Tracheal Aspirate Sputum Culture - Final Corynebacterium species 08/22/23 11:35 Neck Gram Stain - Final 08/22/23 11:35 Neck Routine Culture - Final Group F Streptococcus 08/19/23 09:51 Blood - Venous Blood Culture - Final No growth after 5 days. 08/19/23 09:51 Blood - Venous Blood Culture - Final No growth after 5 days. 08/21/23 17:34 Tracheal Aspirate Gram Stain - Final 08/21/23 17:34 Tracheal Aspirate Sputum Culture - Final Corynebacterium species 08/22/23 11:42 Urine Catheterized - Adan Catheter Urine Culture - Final No growth. 08/03/23 16:38 Sputum - Expectorated Gram Stain - Final 08/03/23 16:38 Sputum - Expectorated Sputum Culture - Final Aspergillus fumigatus 08/02/23 14:20 Blood - Venous Blood Culture - Final No growth after 5 days. 08/02/23 13:36 Blood - Venous Blood Culture - Final No growth after 5 days. Progress Note: A&P Assessment and plan (1) Acute on chronic respiratory failure with hypoxia and hypercapnia: Status: Acute (2) Pneumonia: Status: Acute (3) COPD (chronic obstructive pulmonary disease): Status: Acute (4) Obesity hypoventilation syndrome: Status: Acute (5) CHITO (obstructive sleep apnea): Status: Acute (6) Status post tracheostomy: Status: Acute (7) Status post insertion of percutaneous endoscopic gastrostomy (PEG) tube: Status: Acute (8) Type 2 diabetes mellitus: Status: Acute Plan Patient is a 53 Y F w/ metabolic syndrome c/b morbid obesity, tobacco use, COPD, OHS, CHITO, c/b chronic mixed respiratory failure, and methadone use, reportedly on BiPAP PM, well-known to our institution d/t numerous admissions d/t acute on chronic respiratory failure, most recent admission admitted 08/01, c/b intubation, failed extubation, s/p trach/PEG on 08/11 N: encephalopathy, likely toxic-metabolic, likely d/t infection, tracheitis and pneumonia, improving CV: no acute issues; atrial fibrillation, on home diltiazem, metoprolol IV PRN R: COPD, OHS, CHITO, c/b acute on chronic mixed respiratory failure, s/p trach on 08/11; wean ventilator as tolerated GI: s/p PEG on 08/11, c/b displacement, leaking, now resolved; tube feeds at goal : no acute issues; diuresis w/ furosemide/acetazolamide H: bilateral upper extremity venous thrombus, on treatment-dose enoxaparin ID: tracheitis, pnuemonia; on vancomycin, zosyn E: TIIDM, c/b hyperglycemia; insulin regimen S: opioid dependence, on home methadone; awaiting facility placement Quality Stroke Does the patient have a stroke diagnosis?: No VTE Prior VTE?: Yes Approximate Date of Prior VTE: 08/27/23 VTE Risk Level:: Medical - moderate - high VTE Device Contraindication: Treatment Not Indicated VTE Drug Contraindication: N/A - Med Ordered
[2023-08-30] MEDS: Potassium Chloride Packet 20 MEQ PACKET 40 MEQ PO (08:06)
[2023-08-30] MEDS: Nystatin Oral Susp 500,000 UNIT/5 ML ORAL.SUSP 100000 UNIT BUCCAL ×3 (08:07→20:48)
[2023-08-30] MEDS: Chlorhexidine Gluc Oral Rinse 15 ML MOUTHWASH BUCCAL ×3 (08:07→20:48)
[2023-08-30] MEDS: dilTIAZem HCL 60 MG TABLET PO ×4 (08:07→20:49)
[2023-08-30] MEDS: Famotidine/PF 20 MG/2 ML VIAL IVPUSH (08:08)
[2023-08-30] MEDS: Furosemide 40 MG/4 ML VIAL IVPUSH ×2 (08:08→18:10)
[2023-08-30] MEDS: Insulin Glargine,Hum.rec.anlog 100 UNIT/ML 10 ML VIAL 30 UNIT SUBCUT (08:08)
[2023-08-30] MEDS: acetaZOLAMIDE sodium 500 MG VIAL 250 MG IVPUSH (08:08)
[2023-08-30] MEDS: Calcitonin,Salmon,Synth Nasal 3.7 ML BOTTLE 1 SPRAY NOSTRIL-B (08:16)
[2023-08-30] MEDS: Potassium Chloride/H20 10 MEQ/100 ML PIGGYBACK 100 MEQ IV ×4 (08:26→11:51)
[2023-08-30] MEDS: Metoprolol Tartrate 10 MG in 0.9 % Sodium Chloride 50 ML 240 MG IV (08:42)
[2023-08-30] MEDS: ondansetron HCL 4 MG/2 ML VIAL IVPUSH (08:44)
[2023-08-30] MEDS: Enoxaparin Sodium 100 MG/ML SYRINGE 90 MG SUBCUT ×2 (10:43→23:12)
[2023-08-30] MEDS: methADONE HCl 5 MG TABLET 15 MG PO ×2 (10:44→20:48)
[2023-08-30] MEDS: lamoTRIgine 100 MG TABLET 150 MG PO ×2 (10:44→20:49)
[2023-08-30 11:32] LABS: Glucose, Whole Blood 64 mg/dL (60-115)
[2023-08-30 12:11] LABS: Glucose, Whole Blood 150 mg/dL (60-115)
[2023-08-30 13:07] LABS: Vancomycin Random 16.3 mcg/mL (15-20)
[2023-08-30 18:02] LABS: Glucose, Whole Blood 87 mg/dL (60-115)
[2023-08-30 20:59] LABS: Glucose, Whole Blood 79 mg/dL (60-115)
[2023-08-30] MEDS: clonazePAM 1 MG TABLET PO (21:13)
[2023-08-30 23:52] LABS: Glucose, Whole Blood 69 mg/dL (60-115)
[2023-08-31] VITALS (37 sets, daily range): BP systolic 90–135; BP diastolic 46–73; PULSE 90–118; RESP 13–31; TEMP 34.5–37.2; O2SAT 88–100; BMI 37.5
[2023-08-31] MEDS: vancomycin HCL 500 MG in 0.9 % Sodium Chloride 100 ML 110 MG IV ×2 (02:00→13:35)
[2023-08-31 02:05] LABS: Glucose, Whole Blood 79 mg/dL (60-115)
[2023-08-31] MEDS: Piperacillin Sodium/Tazobactam 4.5 GM in 0.9 % Sodium Chloride 100 ML IV ×4 (03:03→20:17)
[2023-08-31 05:43] LABS: Basophils Absolute Auto 0.1 X10*3/uL (0.0-0.2); Basophils Percent Auto 0.8 % (0-2); Eosinophils Absolute Auto 0.1 X10*3/uL (0.0-0.4); Eosinophils Percent Auto 0.8 % (0-4); Hematocrit 30.8 % (37.0-47.0); Hemoglobin 9.4 g/dl (12.0-16.0); Imm Gran Pct Auto 4.2 % (0.0-0.4); Lymphocytes Absolute Auto 1.6 X10*3/uL (1.2-4.9); MANUAL DIFF FLAG SCAN; Mean Corpuscular HGB Conc 30.5 g/dl (31.0-35.0); Mean Corpuscular Hemoglobin 28.9 pg (27.0-33.0); Mean Corpuscular Volume 94.8 fL (80.0-98.0); Mean Platelet Volume 10.8 fL (9.4-12.3); Monocytes Absolute Auto 0.7 X10*3/uL (0.1-1.2); Monocytes Percent Auto 9.6 % (2-11); Neutrophils Absolute Auto 4.4 x10*3/uL (2.0-8.3); Neutrophils Percent Auto 62.6 % (45-73); PLT CLUMP 1; Red Blood Count 3.25 X10*6/uL (4.20-5.50); Red Cell Distribution Width 18.9 % (11.0-16.0); SCAN SMEAR FLAG 1
[2023-08-31 05:44] LABS: Ammonia 63 umol/L (13-55); NRBC Pct Auto 1.3 /100WBC (0.0-0.2); Platelet Count 105 X10*3/uL (160-400); White Blood Count 7.1 X10*3/uL (4.8-10.8)
[2023-08-31 05:57] LABS: Alanine Aminotransferase 17 U/L (0-31); Albumin Level 2.4 g/dL (3.5-5.0); Alkaline Phosphatase 95 U/L (39-117); Anion Gap 13 (12-20); Aspartate Amino Transferase 44 U/L (5-31); Blood Urea Nitrogen 10 mg/dL (9-16); Calcium 9.4 mg/dL (8.4-10.2); Carbon Dioxide 32 mmol/L (22-29); Chloride 100 mmol/L (96-108); Creatinine Clr Calc Pharmacy 88.7; Estimated Glomerular Filt Rate > 60; Glucose Random 90 mg/dL (60-115); Phosphorus 4.3 mg/dL (2.7-4.5); Potassium 3.2 mmol/L (3.3-5.1); Sodium 142 mmol/L (135-145); Total Protein 6.3 g/dL (6.5-8.0)
[2023-08-31 06:01] LABS: SLIDE REVIEW VERIFIED
[2023-08-31 06:12] LABS: Bilirubin Total 0.4 mg/dL (0.0-1.0)
[2023-08-31] MEDS: Potassium Chloride/H20 10 MEQ/100 ML PIGGYBACK 100 MEQ IV ×4 (06:36→11:41)
[2023-08-31] MEDS: Albumin Human 25 % 100 ML IV ×2 (06:41→07:43)
[2023-08-31] MEDS: Chlorhexidine Gluc Oral Rinse 15 ML MOUTHWASH BUCCAL ×3 (08:29→20:00)
[2023-08-31] MEDS: Nystatin Oral Susp 500,000 UNIT/5 ML ORAL.SUSP 100000 UNIT BUCCAL ×3 (08:29→20:00)
[2023-08-31] MEDS: Famotidine/PF 20 MG/2 ML VIAL IVPUSH (08:29)
[2023-08-31] MEDS: lamoTRIgine 100 MG TABLET 150 MG PO ×2 (08:30→20:01)
[2023-08-31] MEDS: Furosemide 40 MG/4 ML VIAL IVPUSH ×2 (08:30→17:23)
[2023-08-31] MEDS: methADONE HCl 5 MG TABLET 15 MG PO ×2 (08:31→20:01)
[2023-08-31] MEDS: dilTIAZem HCL 60 MG TABLET PO ×4 (08:31→20:00)
[2023-08-31] MEDS: Potassium Chloride Packet 20 MEQ PACKET 40 MEQ PO (08:31)
[2023-08-31] MEDS: Calcitonin,Salmon,Synth Nasal 3.7 ML BOTTLE 1 SPRAY NOSTRIL-B (08:32)
[2023-08-31] MEDS: Albuterol/Iprat 2.5/0.5MG 3 ML AMPUL.NEB INHALE ×4 (08:33→19:11)
--- NOTE | 2023-08-31 09:06 | P.PNCC_ITS ---
Subjective Subjective Date of Service: 08/31/23 Interval History: no significant overnight events Critical Care Time (minutes): 60 Physical Exam 2 Vital Signs: Vital Signs: Last Vital Signs Temp 98.9 F 08/31/23 08:00 Pulse 118 H 08/31/23 08:34 Resp 24 H 08/31/23 08:34 BP 128/61 08/31/23 08:31 Pulse Ox 93 08/31/23 08:00 O2 Del Method Mechanical Ventil ation 08/31/23 08:00 O2 Flow Rate 35 08/29/23 18:00 FiO2 30 08/31/23 08:34 BMI result Body Mass Index 37.5 Const: General: no acute distress, alert, awake and Physically active HEENT: Other: tracheostomy clean, dry, intact, w/o fluctuance, induration Head: Yes normal to inspection, Yes normocephalic and Yes atraumatic Eyes: General: appearance normal, both eyes and all related structures Neck: Neck: Yes normal visual inspection, Yes full ROM, Yes trachea midline and Yes supple Chest: Chest palpation & inspection: normal inspection of the chest Resp: Other: some appreciable rhonchi; no appreciable rales, wheezing Effort & Inspection: normal respiratory effort Cardio: Rate: tachycardic Rhythm: regular rhythm GI: Other: gastrostomy tube w/o appreciable leakage, erythema, edema Inspection: Yes normal to inspection, No Abdominal wall edema and No distended Palpation (GI): Soft to palpation, not firm, nontender, no guarding and not rigid : External Female Exam: normal external appearance Skin: General skin exam: no rashes or lesions noted Neuro: Other: intermittently communicates non-verbally; re-directable General: tone normal, moves all extremities and no focal motor deficits Extrem: Other: 1+ pitting edema bilateral lower extremi ties General: Yes normal to inspection, Yes full ROM and Yes capillary refill normal Psych: Other: intermittent agitation, verbally redirectable Objective Data Labs 08/31/23 05:25 08/31/23 05:25 Labs: Laboratory Results - last 24 hr 08/30/23 08/30/23 08/30/23 11:27 12:05 12:09 WBC RBC Hgb Hct MCV MCH MCHC RDW Plt Count MPV Immature Gran % (Auto) Neut % (Auto) Lymph % (Auto) [place] % (Auto) Eos % (Auto) Baso % (Auto) Lymph # (Auto) [place] # (Auto) Eos # (Auto) Baso # (Auto) Abs Immat Gran (auto) Absolute Neuts (auto) Absolute Nucleated RBC Nucleated RBC % (auto) Smear Tech's Comments Sodium Potassium Chloride Carbon Dioxide Anion Gap BUN Creatinine Estim Creat Clear Calc Estimated GFR POC Glucose 64 150 H Random Glucose Calcium Phosphorus Magnesium Total Bilirubin AST ALT Alkaline Phosphatase Ammonia Total Protein Albumin Random Vancomycin 16.3 08/30/23 08/30/23 08/30/23 17:59 20:44 23:48 WBC RBC Hgb Hct MCV MCH MCHC RDW Plt Count MPV Immature Gran % (Auto) Neut % (Auto) Lymph % (Auto) [place] % (Auto) Eos % (Auto) Baso % (Auto) Lymph # (Auto) [place] # (Auto) Eos # (Auto) Baso # (Auto) Abs Immat Gran (auto) Absolute Neuts (auto) Absolute Nucleated RBC Nucleated RBC % (auto) Smear Tech's Comments Sodium Potassium Chloride Carbon Dioxide Anion Gap BUN Creatinine Estim Creat Clear Calc Estimated GFR POC Glucose 87 79 69 Random Glucose Calcium Phosphorus Magnesium Total Bilirubin AST ALT Alkaline Phosphatase Ammonia Total Protein Albumin Random Vancomycin 08/31/23 08/31/23 02:00 05:25 WBC 7.1 RBC 3.25 L Hgb 9.4 L Hct 30.8 L MCV 94.8 MCH 28.9 MCHC 30.5 L RDW 18.9 H Plt Count 105 L D MPV 10.8 Immature Gran % (Auto) 4.2 H Neut % (Auto) 62.6 Lymph % (Auto) 22.0 [place] % (Auto) 9.6 Eos % (Auto) 0.8 Baso % (Auto) 0.8 Lymph # (Auto) 1.6 [place] # (Auto) 0.7 Eos # (Auto) 0.1 Baso # (Auto) 0.1 Abs Immat Gran (auto) 0.30 H Absolute Neuts (auto) 4.4 Absolute Nucleated RBC 0.090 H Nucleated RBC % (auto) 1.3 H Smear Tech's Comments VERIFIED Sodium 142 Potassium 3.2 L Chloride 100 Carbon Dioxide 32 H Anion Gap 13 BUN 10 Creatinine 0.72 Estim Creat Clear Calc 88.7 Estimated GFR > 60 POC Glucose 79 Random Glucose 90 Calcium 9.4 Phosphorus 4.3 Magnesium 2.0 Total Bilirubin 0.4 AST 44 H ALT 17 Alkaline Phosphatase 95 Ammonia 63 H Total Protein 6.3 L Albumin 2.4 L Random Vancomycin Microbiology Microbiology Results: Microbiology 08/26/23 14:13 Blood - Venous Blood Culture - Preliminary No growth after 48 hours. 08/26/23 14:13 Blood - Venous Blood Culture - Preliminary No growth after 48 hours. 08/26/23 11:25 Tracheal Aspirate Gram Stain - Final 08/26/23 11:25 Tracheal Aspirate Sputum Culture - Final Corynebacterium species 08/22/23 11:35 Neck Gram Stain - Final 08/22/23 11:35 Neck Routine Culture - Final Group F Streptococcus 08/19/23 09:51 Blood - Venous Blood Culture - Final No growth after 5 days. 08/19/23 09:51 Blood - Venous Blood Culture - Final No growth after 5 days. 08/21/23 17:34 Tracheal Aspirate Gram Stain - Final 08/21/23 17:34 Tracheal Aspirate Sputum Culture - Final Corynebacterium species 08/22/23 11:42 Urine Catheterized - Adan Catheter Urine Culture - Final No growth. 08/03/23 16:38 Sputum - Expectorated Gram Stain - Final 08/03/23 16:38 Sputum - Expectorated Sputum Culture - Final Aspergillus fumigatus 08/02/23 14:20 Blood - Venous Blood Culture - Final No growth after 5 days. 08/02/23 13:36 Blood - Venous Blood Culture - Final No growth after 5 days. Progress Note: A&P Assessment and plan (1) Acute on chronic respiratory failure with hypoxia and hypercapnia: Status: Acute (2) Pneumonia: Status: Acute (3) COPD (chronic obstructive pulmonary disease): Status: Acute (4) Obesity hypoventilation syndrome: Status: Acute (5) CHITO (obstructive sleep apnea): Status: Acute (6) Status post tracheostomy: Status: Acute (7) Status post insertion of percutaneous endoscopic gastrostomy (PEG) tube: Status: Acute Plan Patient is a 53 Y F w/ metabolic syndrome c/b morbid obesity, tobacco use, COPD, OHS, CHITO, c/b chronic mixed respiratory failure, and methadone use, reportedly on BiPAP PM, well-known to our institution d/t numerous admissions d/t acute on chronic respiratory failure, most recent admission admitted 08/01, c/b intubation, failed extubation, s/p trach/PEG on 08/11 N: encephalopathy, likely toxic-metabolic, likely d/t infection, tracheitis and pneumonia, improving CV: no acute issues; atrial fibrillation, on home diltiazem, metoprolol IV PRN R: COPD, OHS, CHITO, c/b acute on chronic mixed respiratory failure, s/p trach on 08/11; wean ventilator as tolerated GI: s/p PEG on 08/11, c/b displacement, leaking, now resolved; tube feeds at goal : no acute issues; diuresis w/ furosemide/acetazolamide H: bilateral upper extremity venous thrombus, on treatment-dose enoxaparin ID: tracheitis, pnuemonia; on vancomycin, zosyn E: TIIDM, c/b hyperglycemia; insulin regimen S: opioid dependence, on home methadone; awaiting facility placement Quality Stroke Does the patient have a stroke diagnosis?: No VTE Prior VTE?: Yes Approximate Date of Prior VTE: 08/27/23 VTE Risk Level:: Medical - moderate - high VTE Device Contraindication: Treatment Not Indicated VTE Drug Contraindication: N/A - Med Ordered
[2023-08-31] MEDS: clonazePAM 1 MG TABLET PO ×2 (09:30→20:01)
[2023-08-31] MEDS: Midazolam HCl/PF 2 MG/2 ML VIAL 4 MG IVPUSH (09:45)
[2023-08-31] MEDS: gadobutroL 10 ML VIAL IVPUSH (10:35)
[2023-08-31] MEDS: Enoxaparin Sodium 100 MG/ML SYRINGE 90 MG SUBCUT ×2 (11:41→22:07)
[2023-08-31 11:59] LABS: Glucose, Whole Blood 82 mg/dL (60-115)
[2023-08-31 12:29] LABS: Vancomycin Random 17.2 mcg/mL (15-20)
--- NOTE | 2023-08-31 12:35 | HE.PHANOTE ---
RE VANCO TROUGH TODAY IS 17.2. RENAL FUNCTION CONTINUES TO IMPROVE. CONTINUE WITH 500 MG Q12 AND DAILY RENAL MONITORING. RECHECK LEVELS ON 09/02/23 @1200.
--- NOTE | 2023-08-31 15:29 | MHC.CM.PN ---
Pt continues care in ICU: recovering from PNA and will be able to restart trach collar trials this week. Per MD, trials will be a slow progression to the 12 hours per day [facility] is requesting d/t pt's fragile respiratory and overall physical status. Clinical updates remitted to [facility]. CM to follow
[2023-08-31 17:31] LABS: Glucose, Whole Blood 99 mg/dL (60-115)
[2023-08-31] MEDS: 0.9 % Sodium Chloride Flush 3 ML SYRINGE IVFLUSH (22:08)
[2023-08-31 23:50] LABS: Glucose, Whole Blood 117 mg/dL (60-115)
[2023-09-01] VITALS (39 sets, daily range): BP systolic 91–135; BP diastolic 43–86; PULSE 96–123; RESP 19–32; TEMP 34.3–37.9; O2SAT 89–100; BMI 37.8
[2023-09-01] MEDS: vancomycin HCL 500 MG in 0.9 % Sodium Chloride 100 ML 110 MG IV (01:57)
[2023-09-01] MEDS: Piperacillin Sodium/Tazobactam 4.5 GM in 0.9 % Sodium Chloride 100 ML IV ×4 (02:58→20:32)
[2023-09-01 05:29] LABS: MANUAL DIFF FLAG NO
[2023-09-01 05:33] LABS: Basophils Absolute Auto 0.1 X10*3/uL (0.0-0.2); Basophils Percent Auto 0.8 % (0-2); Eosinophils Absolute Auto 0.1 X10*3/uL (0.0-0.4); Eosinophils Percent Auto 0.9 % (0-4); Imm Gran Abs Auto 0.12 X10*3/uL (0.00-0.03); Imm Gran Pct Auto 1.6 % (0.0-0.4); Lymphocytes Absolute Auto 1.7 X10*3/uL (1.2-4.9); Lymphocytes Percent Auto 21.5 % (20-40); Mean Corpuscular HGB Conc 29.6 g/dl (31.0-35.0); Mean Corpuscular Hemoglobin 29.2 pg (27.0-33.0); Mean Corpuscular Volume 98.5 fL (80.0-98.0); Mean Platelet Volume 9.3 fL (9.4-12.3); Monocytes Absolute Auto 0.9 X10*3/uL (0.1-1.2); Monocytes Percent Auto 11.7 % (2-11); NRBC Pct Auto 0.8 /100WBC (0.0-0.2); Neutrophils Absolute Auto 4.9 x10*3/uL (2.0-8.3); Neutrophils Percent Auto 63.5 % (45-73); Platelet Count 291 X10*3/uL (160-400); Red Blood Count 2.74 X10*6/uL (4.20-5.50); White Blood Count 7.7 X10*3/uL (4.8-10.8)
[2023-09-01 05:52] LABS: Alanine Aminotransferase 16 U/L (0-31); Alkaline Phosphatase 93 U/L (39-117); Anion Gap 14 (12-20); Aspartate Amino Transferase 33 U/L (5-31); Bilirubin Total 0.3 mg/dL (0.0-1.0); Blood Urea Nitrogen 8 mg/dL (9-16); Calcium 9.8 mg/dL (8.4-10.2); Carbon Dioxide 35 mmol/L (22-29); Chloride 96 mmol/L (96-108); Creatinine Clr Calc Pharmacy 81.9; Estimated Glomerular Filt Rate > 60; Glucose Random 139 mg/dL (60-115); Phosphorus 4.2 mg/dL (2.7-4.5); Potassium 3.2 mmol/L (3.3-5.1); Sodium 142 mmol/L (135-145); Total Protein 6.7 g/dL (6.5-8.0)
[2023-09-01] MEDS: Potassium Chloride Packet 20 MEQ PACKET 40 MEQ PO ×2 (06:11→20:28)
[2023-09-01] MEDS: Potassium Chloride/H20 10 MEQ/100 ML PIGGYBACK 100 MEQ IV ×4 (06:15→11:33)
[2023-09-01] MEDS: Albuterol/Iprat 2.5/0.5MG 3 ML AMPUL.NEB INHALE ×4 (07:37→19:48)
[2023-09-01] MEDS: Famotidine/PF 20 MG/2 ML VIAL IVPUSH (08:02)
[2023-09-01] MEDS: Furosemide 40 MG/4 ML VIAL IVPUSH ×2 (08:08→18:11)
[2023-09-01] MEDS: Chlorhexidine Gluc Oral Rinse 15 ML MOUTHWASH BUCCAL ×3 (08:09→20:26)
[2023-09-01] MEDS: Nystatin Oral Susp 500,000 UNIT/5 ML ORAL.SUSP 100000 UNIT BUCCAL ×3 (08:10→20:26)
[2023-09-01] MEDS: dilTIAZem HCL 60 MG TABLET PO ×4 (08:12→20:26)
[2023-09-01] MEDS: lamoTRIgine 100 MG TABLET 150 MG PO ×2 (08:12→20:27)
[2023-09-01] MEDS: methADONE HCl 5 MG TABLET 15 MG PO ×2 (08:13→20:26)
[2023-09-01] MEDS: 0.9 % Sodium Chloride Flush 3 ML SYRINGE IVFLUSH ×3 (08:45→22:09)
--- NOTE | 2023-09-01 09:18 | MHC.CM.ED ---
Patient remain in ICU with trach/vent and peg. Trach mask trials will be started this week. RN will attempt to get patient out of bed today. Continue to monitor for d/c needs.
[2023-09-01] MEDS: Calcitonin,Salmon,Synth Nasal 3.7 ML BOTTLE 1 SPRAY NOSTRIL-B (10:28)
--- NOTE | 2023-09-01 10:33 | P.PNCC_ITS ---
Subjective Subjective Date of Service: 09/01/23 Interval History: 53-year-old lady with underlying morbid obesity, CHITO with hyperventilation syndrome with CO2 retention on supplemental oxygen at 3 L and nocturnal BiPAP, asthma/COPD overlap syndrome, diastolic heart failure, diabetes mellitus, opioid dependence on methadone with multiple admissions for respiratory failure admitted on 08/02/2023 with acute on chronic hypoxic and hypercapnic respiratory failure initially to telemetry michel, however on 08/05/2023 patient with worsening CO2 retention with poor improvement on BiPAP support requiring transfer to the intensive care unit and intubation. Failed extubation 08/11/2023. Now status post tracheostomy/gastrostomy on 08/12/2023. No events overnight. Critical Care Time (minutes): 60 Physical Exam 2 Vital Signs: Vital Signs: Last Vital Signs Temp 100.2 F 09/01/23 08:00 Pulse 119 H 09/01/23 10:00 Resp 23 H 09/01/23 10:00 BP 133/81 09/01/23 10:00 Pulse Ox 96 09/01/23 10:00 O2 Del Method Mechanical Ventil ation 09/01/23 10:00 O2 Flow Rate 35 08/29/23 18:00 FiO2 35 09/01/23 10:00 BMI result Body Mass Index 37.8 Const: General: no acute distress and awake Nutritional Appearance: obese Eyes: Sclerae: sclerae normal EOM: EOMs intact bilaterally Neck: Neck: Yes no lymphadenopathy, Yes trachea midline, Yes supple and Yes tracheostomy present (On vent) Resp: Auscultation: clear to auscultation bilaterally Cardio: Rate: tachycardic Rhythm: regular rhythm Heart sounds: no gallops, no murmurs and no rubs GI: Inspection: Yes G-tube present Palpation (GI): Soft to palpation and Other GI palpation findings present ( Nontender) Auscultation: normal bowel sounds Extrem: General: Yes no pedal edema, No clubbing and No cyanosis Objective Data Labs 09/01/23 05:18 09/01/23 05:18 Labs: Laboratory Results - last 24 hr 08/31/23 08/31/23 08/31/23 11:55 12:00 17:27 WBC RBC Hgb Hct MCV MCH MCHC RDW Plt Count MPV Immature Gran % (Auto) Neut % (Auto) Lymph % (Auto) [place] % (Auto) Eos % (Auto) Baso % (Auto) Lymph # (Auto) [place] # (Auto) Eos # (Auto) Baso # (Auto) Abs Immat Gran (auto) Absolute Neuts (auto) Absolute Nucleated RBC Nucleated RBC % (auto) Sodium Potassium Chloride Carbon Dioxide Anion Gap BUN Creatinine Estim Creat Clear Calc Estimated GFR POC Glucose 82 99 Random Glucose Calcium Phosphorus Magnesium Total Bilirubin AST ALT Alkaline Phosphatase Total Protein Albumin Random Vancomycin 17.2 08/31/23 09/01/23 23:47 05:18 WBC 7.7 RBC 2.74 L Hgb 8.0 L Hct 27.0 L MCV 98.5 H MCH 29.2 MCHC 29.6 L RDW 19.0 H Plt Count 291 D MPV 9.3 L Immature Gran % (Auto) 1.6 H Neut % (Auto) 63.5 Lymph % (Auto) 21.5 [place] % (Auto) 11.7 H Eos % (Auto) 0.9 Baso % (Auto) 0.8 Lymph # (Auto) 1.7 [place] # (Auto) 0.9 Eos # (Auto) 0.1 Baso # (Auto) 0.1 Abs Immat Gran (auto) 0.12 H Absolute Neuts (auto) 4.9 Absolute Nucleated RBC 0.060 H Nucleated RBC % (auto) 0.8 H Sodium 142 Potassium 3.2 L Chloride 96 Carbon Dioxide 35 H Anion Gap 14 BUN 8 L Creatinine 0.78 Estim Creat Clear Calc 81.9 Estimated GFR > 60 POC Glucose 117 H Random Glucose 139 H Calcium 9.8 Phosphorus 4.2 Magnesium 2.0 Total Bilirubin 0.3 AST 33 H ALT 16 Alkaline Phosphatase 93 Total Protein 6.7 Albumin 3.0 L Random Vancomycin Microbiology Microbiology Results: Microbiology 08/26/23 14:13 Blood - Venous Blood Culture - Final No growth after 5 days. 08/26/23 14:13 Blood - Venous Blood Culture - Final No growth after 5 days. 08/26/23 11:25 Tracheal Aspirate Gram Stain - Final 08/26/23 11:25 Tracheal Aspirate Sputum Culture - Final Corynebacterium species 08/22/23 11:35 Neck Gram Stain - Final 08/22/23 11:35 Neck Routine Culture - Final Group F Streptococcus 08/19/23 09:51 Blood - Venous Blood Culture - Final No growth after 5 days. 08/19/23 09:51 Blood - Venous Blood Culture - Final No growth after 5 days. 08/21/23 17:34 Tracheal Aspirate Gram Stain - Final 08/21/23 17:34 Tracheal Aspirate Sputum Culture - Final Corynebacterium species 08/22/23 11:42 Urine Catheterized - Adan Catheter Urine Culture - Final No growth. 08/03/23 16:38 Sputum - Expectorated Gram Stain - Final 08/03/23 16:38 Sputum - Expectorated Sputum Culture - Final Aspergillus fumigatus 08/02/23 14:20 Blood - Venous Blood Culture - Final No growth after 5 days. 08/02/23 13:36 Blood - Venous Blood Culture - Final No growth after 5 days. Progress Note: A&P Assessment and plan (1) Status post tracheostomy: Status: Acute (2) Status post insertion of percutaneous endoscopic gastrostomy (PEG) tube: Status: Acute (3) Encephalopathy acute: Status: Acute (4) Type 2 diabetes mellitus: Status: Acute (5) Opioid dependence: Status: Acute (6) Intensive care (ICU) myopathy: Status: Acute (7) COPD (chronic obstructive pulmonary disease): Status: Acute Plan Assessment: 53-year-old lady with underlying CHITO with obesity hyperventilation, asthma/COPD, obesity, diastolic heart failure admitted with acute on chronic hypoxic and hypercapnic respiratory failure now requiring ventilatory support. Plan: Neuro: Waxing and waning mental status. Repeat MRI brain with no acute findings. Cardiac: Acute on chronic diastolic congestive heart failure resolved with diuresis. Pulmonary: Acute on chronic hypoxic and hypercapnic respiratory failure now requiring ventilatory support. Failed extubation 08/11/2023. Now status post tracheostomy/gastrostomy on 08/12/2023. Now with improving tolerance of pressor support trials. Continue to titrate off ventilatory support as tolerated. Renal: No acute issues. Endo: No acute issues. Underlying diabetes mellitus. GI: No acute issues. ID: No acute issues Heme/Onc: Upper extremity DVT, continue full-dose Lovenox. Psych: No acute issues. Underlying opioid dependence. Miscellaneous: No acute issues. Prophylaxis: Lovenox, famotidine Diet: Tube feed Critical care time spent: 60 minutes Quality Stroke Does the patient have a stroke diagnosis?: No VTE Prior VTE?: Yes Approximate Date of Prior VTE: 08/27/23 VTE Risk Level:: Medical - moderate - high VTE Device Contraindication: Treatment Not Indicated VTE Drug Contraindication: N/A - Med Ordered
[2023-09-01] MEDS: Enoxaparin Sodium 100 MG/ML SYRINGE 90 MG SUBCUT ×2 (11:27→22:09)
[2023-09-01 11:48] LABS: Glucose, Whole Blood 168 mg/dL (60-115)
--- NOTE | 2023-09-01 12:20 | MHC.CLN ---
F/U REVIEWED LABS TF ON HOLD THIS AM R/T VOMITING EPISODE PT WAS TOLERATING TF AT MAX GOAL RATE OVER WEEKEND WHEN TF TO RE-START; RECOMMEND GLUCERNA TF AT MAX GOAL RATE 55ML/HR WITH 30ML PROSOURCE BID AND 240ML FREE WATER FLUSHES Q 8 HRS PROVIDES 1440KCALS (24KCALS/KG), 85G PROTEIN (1.4G/KG), 1846ML TOTAL FREE WATER FROM FORMULA AND FLUSHES (31ML/KG) START FORMULA AT 10ML/HR AND INCREASE BY 10ML Q 4 HRS UNTIL MAX GOAL RATE IS ACHIEVED MONITOR TOLERANCE, RESIDUALS AND LYTES FOLLOWING WITH TEAM
[2023-09-01 17:57] LABS: Glucose, Whole Blood 151 mg/dL (60-115)
[2023-09-01] MEDS: Insulin Lispro 100 UNIT/ML 3 ML VIAL SUBCUT (18:09)
[2023-09-01] MEDS: clonazePAM 1 MG TABLET PO (20:26)
[2023-09-01] MEDS: Midazolam HCl/PF 2 MG/2 ML VIAL IVPUSH (20:47)
[2023-09-01 23:55] LABS: Glucose, Whole Blood 134 mg/dL (60-115)
[2023-09-02] VITALS (38 sets, daily range): BP systolic 93–135; BP diastolic 46–78; PULSE 93–133; RESP 13–38; TEMP 34.8–37.7; O2SAT 90–100; BMI 38.1
[2023-09-02] MEDS: Piperacillin Sodium/Tazobactam 4.5 GM in 0.9 % Sodium Chloride 100 ML IV ×3 (02:25→14:31)
[2023-09-02 05:37] LABS: VBG HCO3 40 mmol/L (22-26); VBG pCO2 34 mmHg; VBG pH 7.67 (7.32-7.43); VBG pO2 72 mmHg
[2023-09-02 05:38] LABS: Venous Blood Gas Refer to POC result
[2023-09-02 05:40] LABS: MANUAL DIFF FLAG NO
[2023-09-02] MEDS: propofoL 1,000 MG/100 ML VIAL 5.27 MG IVCONT (05:48)
[2023-09-02 05:49] LABS: Basophils Absolute Auto 0.1 X10*3/uL (0.0-0.2); Basophils Percent Auto 0.6 % (0-2); Eosinophils Absolute Auto 0.1 X10*3/uL (0.0-0.4); Eosinophils Percent Auto 0.5 % (0-4); Hematocrit 29.3 % (37.0-47.0); Hemoglobin 8.5 g/dl (12.0-16.0); Imm Gran Abs Auto 0.12 X10*3/uL (0.00-0.03); Imm Gran Pct Auto 1.3 % (0.0-0.4); Lymphocytes Absolute Auto 2.2 X10*3/uL (1.2-4.9); Lymphocytes Percent Auto 22.5 % (20-40); Mean Corpuscular Hemoglobin 28.6 pg (27.0-33.0); Mean Corpuscular Volume 98.7 fL (80.0-98.0); Mean Platelet Volume 9.7 fL (9.4-12.3); Monocytes Absolute Auto 1.1 X10*3/uL (0.1-1.2); Monocytes Percent Auto 11.5 % (2-11); NRBC Pct Auto 0.4 /100WBC (0.0-0.2); Neutrophils Absolute Auto 6.1 x10*3/uL (2.0-8.3); Neutrophils Percent Auto 63.6 % (45-73); Platelet Count 315 X10*3/uL (160-400); Red Blood Count 2.97 X10*6/uL (4.20-5.50); Red Cell Distribution Width 18.9 % (11.0-16.0); White Blood Count 9.6 X10*3/uL (4.8-10.8)
[2023-09-02 05:59] LABS: Anion Gap 14 (12-20); Blood Urea Nitrogen 7 mg/dL (9-16); Calcium 10.2 mg/dL (8.4-10.2); Carbon Dioxide 35 mmol/L (22-29); Chloride 97 mmol/L (96-108); Creatinine Clr Calc Pharmacy 85.8; Estimated Glomerular Filt Rate > 60; Glucose Random 149 mg/dL (60-115); Phosphorus 3.5 mg/dL (2.7-4.5); Potassium 4.1 mmol/L (3.3-5.1); Sodium 142 mmol/L (135-145)
[2023-09-02] MEDS: Albuterol/Iprat 2.5/0.5MG 3 ML AMPUL.NEB INHALE ×4 (07:39→20:46)
[2023-09-02] MEDS: Albumin Human 25 % 100 ML IV ×2 (07:48→13:20)
[2023-09-02] MEDS: Nystatin Oral Susp 500,000 UNIT/5 ML ORAL.SUSP 100000 UNIT BUCCAL ×3 (07:50→20:15)
[2023-09-02] MEDS: Chlorhexidine Gluc Oral Rinse 15 ML MOUTHWASH BUCCAL ×3 (07:50→20:15)
[2023-09-02] MEDS: Potassium Chloride Packet 20 MEQ PACKET 40 MEQ PO ×2 (07:51→20:15)
[2023-09-02] MEDS: dilTIAZem HCL 60 MG TABLET PO ×4 (07:51→20:14)
[2023-09-02] MEDS: lamoTRIgine 100 MG TABLET 150 MG PO ×2 (07:52→20:15)
[2023-09-02 07:54] LABS: VBG HCO3 46 mmol/L (22-26); VBG pCO2 62 mmHg; VBG pH 7.48 (7.32-7.43); VBG pO2 57 mmHg
[2023-09-02] MEDS: Famotidine/PF 20 MG/2 ML VIAL IVPUSH (08:03)
[2023-09-02] MEDS: Furosemide 40 MG/4 ML VIAL IVPUSH ×2 (08:04→18:05)
[2023-09-02] MEDS: 0.9 % Sodium Chloride Flush 3 ML SYRINGE IVFLUSH ×2 (08:39→15:47)
--- NOTE | 2023-09-02 09:57 | PM.CCPN ---
Subjective Subjective Date of Service: 09/02/23 Interval History: 53-year-old lady with underlying morbid obesity, CHITO with hyperventilation syndrome with CO2 retention on supplemental oxygen at 3 L and nocturnal BiPAP, asthma/COPD overlap syndrome, diastolic heart failure, diabetes mellitus, opioid dependence on methadone with multiple admissions for respiratory failure admitted on 08/02/2023 with acute on chronic hypoxic and hypercapnic respiratory failure initially to telemetry michel, however on 08/05/2023 patient with worsening CO2 retention with poor improvement on BiPAP support requiring transfer to the intensive care unit and intubation. Failed extubation 08/11/2023. Now status post tracheostomy/gastrostomy on 08/12/2023. No events overnight. Mental status is waxing waning, but overall slowly improving, follows commands. Now tolerating pressure support trials for 12+ hours and tolerating sitting reclined 5-6 hours a day. Critical Care Time (minutes): 60 Physical Exam Vital Signs: Vital Signs: Last Vital Signs Temp 99.3 F 09/02/23 08:00 Pulse 130 H 09/02/23 09:00 Resp 22 H 09/02/23 09:00 BP 124/78 09/02/23 09:00 Pulse Ox 90 L 09/02/23 09:00 O2 Del Method Mechanical Ventil ation 09/02/23 09:00 O2 Flow Rate 40 09/01/23 19:00 FiO2 35 09/02/23 09:00 BMI result Body Mass Index 38.1 Const: General: alert and awake Nutritional Appearance: obese Eyes: Sclerae: sclerae normal EOM: EOMs intact bilaterally Neck: Neck: Yes no lymphadenopathy, Yes trachea midline, Yes supple and Yes tracheostomy present (On vent) Resp: Auscultation: clear to auscultation bilaterally Cardio: Rate: tachycardic Rhythm: regular rhythm Heart sounds: no gallops, no murmurs and no rubs GI: Inspection: Yes G-tube present Palpation (GI): Soft to palpation and Other GI palpation findings present ( Nontender) Auscultation: normal bowel sounds Extrem: General: Yes no pedal edema, No clubbing and No cyanosis Objective Data Labs 09/02/23 05:32 09/02/23 05:32 Labs: Laboratory Results - last 24 hr 06/17/24 06/17/24 06/17/24 11:45 17:54 23:50 WBC RBC Hgb Hct MCV MCH MCHC RDW Plt Count MPV Immature Gran % (Auto) Neut % (Auto) Lymph % (Auto) [place] % (Auto) Eos % (Auto) Baso % (Auto) Lymph # (Auto) [place] # (Auto) Eos # (Auto) Baso # (Auto) Abs Immat Gran (auto) Absolute Neuts (auto) Absolute Nucleated RBC Nucleated RBC % (auto) VBG pH VBG pCO2 VBG pO2 VBG HCO3 VBG O2 Saturation VBG Base Excess Sodium Potassium Chloride Carbon Dioxide Anion Gap BUN Creatinine Estim Creat Clear Calc Estimated GFR POC Glucose 168 H 151 H 134 H Random Glucose Calcium Phosphorus Magnesium Albumin 09/02/23 09/02/23 09/02/23 05:28 05:32 07:46 WBC 9.6 RBC 2.97 L Hgb 8.5 L Hct 29.3 L MCV 98.7 H MCH 28.6 MCHC 29.0 L RDW 18.9 H Plt Count 315 MPV 9.7 Immature Gran % (Auto) 1.3 H Neut % (Auto) 63.6 Lymph % (Auto) 22.5 [place] % (Auto) 11.5 H Eos % (Auto) 0.5 Baso % (Auto) 0.6 Lymph # (Auto) 2.2 [place] # (Auto) 1.1 Eos # (Auto) 0.1 Baso # (Auto) 0.1 Abs Immat Gran (auto) 0.12 H Absolute Neuts (auto) 6.1 Absolute Nucleated RBC 0.040 H Nucleated RBC % (auto) 0.4 H VBG pH 7.67 H* 7.48 H VBG pCO2 34 62 VBG pO2 72 57 VBG HCO3 40 H 46 H VBG O2 Saturation 99.0 88.0 VBG Base Excess 19.0 20.0 Sodium 142 Potassium 4.1 D Chloride 97 Carbon Dioxide 35 H Anion Gap 14 BUN 7 L Creatinine 0.75 Estim Creat Clear Calc 85.8 Estimated GFR > 60 POC Glucose Random Glucose 149 H Calcium 10.2 Phosphorus 3.5 Magnesium 2.0 Albumin 3.0 L Microbiology Microbiology Results: Microbiology 08/26/23 14:13 Blood - Venous Blood Culture - Final No growth after 5 days. 08/26/23 14:13 Blood - Venous Blood Culture - Final No growth after 5 days. 08/26/23 11:25 Tracheal Aspirate Gram Stain - Final 08/26/23 11:25 Tracheal Aspirate Sputum Culture - Final Corynebacterium species 08/22/23 11:35 Neck Gram Stain - Final 08/22/23 11:35 Neck Routine Culture - Final Group F Streptococcus 08/19/23 09:51 Blood - Venous Blood Culture - Final No growth after 5 days. 08/19/23 09:51 Blood - Venous Blood Culture - Final No growth after 5 days. 08/21/23 17:34 Tracheal Aspirate Gram Stain - Final 08/21/23 17:34 Tracheal Aspirate Sputum Culture - Final Corynebacterium species 08/22/23 11:42 Urine Catheterized - Adan Catheter Urine Culture - Final No growth. 08/03/23 16:38 Sputum - Expectorated Gram Stain - Final 08/03/23 16:38 Sputum - Expectorated Sputum Culture - Final Aspergillus fumigatus 08/02/23 14:20 Blood - Venous Blood Culture - Final No growth after 5 days. 08/02/23 13:36 Blood - Venous Blood Culture - Final No growth after 5 days. Progress Note: A&P Assessment and plan (1) Status post tracheostomy: Status: Acute (2) Status post insertion of percutaneous endoscopic gastrostomy (PEG) tube: Status: Acute (3) Encephalopathy acute: Status: Acute (4) Diastolic heart failure: Status: Acute (5) Acute on chronic respiratory failure with hypoxia and hypercapnia: Status: Acute (6) COPD (chronic obstructive pulmonary disease): Status: Acute (7) Obesity hypoventilation syndrome: Status: Acute Plan Assessment: 53-year-old lady with underlying CHITO with obesity hyperventilation, asthma/COPD, obesity, diastolic heart failure admitted with acute on chronic hypoxic and hypercapnic respiratory failure now requiring ventilatory support. Plan: Neuro: Waxing and waning mental status, overall slowly improving. Repeat MRI brain with no acute findings. Does have significant anxiety component, started on BuSpar. Cardiac: Acute on chronic diastolic congestive heart failure resolved with diuresis. Pulmonary: Acute on chronic hypoxic and hypercapnic respiratory failure now requiring ventilatory support. Failed extubation 08/11/2023. Now status post tracheostomy/gastrostomy on 08/12/2023. Now with improving tolerance of pressor support trials. Continue to titrate off ventilatory support as tolerated. Renal: No acute issues. Endo: No acute issues. Underlying diabetes mellitus. GI: No acute issues. ID: No acute issues Heme/Onc: Upper extremity DVT, continue full-dose Lovenox. Psych: No acute issues. Underlying opioid dependence. Miscellaneous: No acute issues. Prophylaxis: Lovenox, famotidine Diet: Tube feed Critical care time spent: 60 minutes Quality Stroke Does the patient have a stroke diagnosis?: No VTE Prior VTE?: Yes Approximate Date of Prior VTE: 08/27/23 VTE Risk Level:: Medical - moderate - high VTE Device Contraindication: Treatment Not Indicated VTE Drug Contraindication: N/A - Med Ordered
[2023-09-02] MEDS: Enoxaparin Sodium 100 MG/ML SYRINGE 90 MG SUBCUT ×2 (10:54→23:15)
[2023-09-02] MEDS: busPIRone HCl 10 MG TABLET PO ×2 (10:55→20:15)
[2023-09-02 11:18] LABS: Glucose, Whole Blood 186 mg/dL (60-115)
[2023-09-02 12:53] LABS: Vancomycin Random 7.2 mcg/mL (15-20)
[2023-09-02 13:22] LABS: Glucose, Whole Blood 187 mg/dL (60-115)
[2023-09-02] MEDS: Insulin Lispro 100 UNIT/ML 3 ML VIAL SUBCUT ×3 (13:24→18:07)
[2023-09-02 13:46] LABS: Venous Blood Gas Refer to POC result
--- NOTE | 2023-09-02 15:41 | MHC.CM.PN ---
Pt continues care in ICU: will continue PSV and trach trials. Methadone to be d/c'd and pt will begin on new meds to manage anxiety. Clinical updates sent to [facility] in anticipation of a transfer this week. CM to follow
[2023-09-02] MEDS: hydrOXYzine HCL 50 MG TABLET PO (16:29)
[2023-09-02 17:36] LABS: Glucose, Whole Blood 191 mg/dL (60-115)
[2023-09-03] VITALS (38 sets, daily range): BP systolic 91–141; BP diastolic 46–99; PULSE 94–133; RESP 15–29; TEMP 34.8–37.7; O2SAT 91–100; BMI 37.3
[2023-09-03 00:06] LABS: Glucose, Whole Blood 130 mg/dL (60-115)
[2023-09-03] MEDS: 0.9 % Sodium Chloride Flush 3 ML SYRINGE IVFLUSH ×3 (00:12→15:03)
[2023-09-03] MEDS: hydrOXYzine HCL 50 MG TABLET PO ×4 (02:34→23:50)
[2023-09-03] MEDS: Midazolam HCl/PF 2 MG/2 ML VIAL IVPUSH (03:41)
[2023-09-03 06:14] LABS: Glucose, Whole Blood 141 mg/dL (60-115)
[2023-09-03] MEDS: fentaNYL citrate/PF 100 MCG/2 ML VIAL 50 MCG IVPUSH (06:17)
[2023-09-03 07:16] LABS: MANUAL DIFF FLAG NO
[2023-09-03 07:21] LABS: Basophils Absolute Auto 0.1 X10*3/uL (0.0-0.2); Basophils Percent Auto 0.7 % (0-2); Eosinophils Absolute Auto 0.1 X10*3/uL (0.0-0.4); Eosinophils Percent Auto 0.5 % (0-4); Hemoglobin 8.9 g/dl (12.0-16.0); Imm Gran Abs Auto 0.11 X10*3/uL (0.00-0.03); Lymphocytes Absolute Auto 1.9 X10*3/uL (1.2-4.9); Lymphocytes Percent Auto 17.9 % (20-40); Mean Corpuscular HGB Conc 28.7 g/dl (31.0-35.0); Mean Corpuscular Hemoglobin 28.7 pg (27.0-33.0); Mean Platelet Volume 9.2 fL (9.4-12.3); Monocytes Absolute Auto 1.1 X10*3/uL (0.1-1.2); Monocytes Percent Auto 10.2 % (2-11); NRBC Pct Auto 0.4 /100WBC (0.0-0.2); Neutrophils Absolute Auto 7.3 x10*3/uL (2.0-8.3); Neutrophils Percent Auto 69.7 % (45-73); Platelet Count 349 X10*3/uL (160-400); Red Cell Distribution Width 18.7 % (11.0-16.0); White Blood Count 10.5 X10*3/uL (4.8-10.8)
[2023-09-03 07:22] LABS: VBG HCO3 45 mmol/L (22-26); VBG pCO2 54 mmHg; VBG pH 7.53 (7.32-7.43); VBG pO2 65 mmHg
[2023-09-03 07:23] LABS: Venous Blood Gas Refer to POC result
[2023-09-03] MEDS: Albuterol/Iprat 2.5/0.5MG 3 ML AMPUL.NEB INHALE ×4 (07:27→19:41)
[2023-09-03 07:35] LABS: Albumin Level 3.8 g/dL (3.5-5.0); Anion Gap 16 (12-20); Blood Urea Nitrogen 6 mg/dL (9-16); Calcium 10.4 mg/dL (8.4-10.2); Carbon Dioxide 35 mmol/L (22-29); Chloride 94 mmol/L (96-108); Creatinine Clr Calc Pharmacy 84.8; Estimated Glomerular Filt Rate > 60; Glucose Random 149 mg/dL (60-115); Magnesium 1.9 mg/dL (1.6-2.6); Phosphorus 3.2 mg/dL (2.7-4.5); Potassium 3.8 mmol/L (3.3-5.1); Sodium 141 mmol/L (135-145)
[2023-09-03] MEDS: Chlorhexidine Gluc Oral Rinse 15 ML MOUTHWASH BUCCAL ×3 (08:17→20:22)
[2023-09-03] MEDS: Nystatin Oral Susp 500,000 UNIT/5 ML ORAL.SUSP 100000 UNIT BUCCAL ×3 (08:17→20:22)
[2023-09-03] MEDS: busPIRone HCl 10 MG TABLET PO ×2 (08:17→20:22)
[2023-09-03] MEDS: dilTIAZem HCL 60 MG TABLET PO ×4 (08:17→20:22)
[2023-09-03] MEDS: lamoTRIgine 100 MG TABLET 150 MG PO ×2 (08:17→20:22)
[2023-09-03] MEDS: Potassium Chloride Packet 20 MEQ PACKET 40 MEQ PO ×2 (08:18→20:22)
[2023-09-03] MEDS: Famotidine/PF 20 MG/2 ML VIAL IVPUSH (08:18)
[2023-09-03] MEDS: Calcitonin,Salmon,Synth Nasal 3.7 ML BOTTLE 1 SPRAY NOSTRIL-B (08:18)
[2023-09-03] MEDS: Furosemide 40 MG/4 ML VIAL IVPUSH ×2 (08:18→17:48)
--- NOTE | 2023-09-03 09:33 | MHC.CLN ---
F/U REVIEWED LABS DISCUSSED AT ROUNDS WITH TF AT MAX GOAL RATE TOLERATING WELL WITH LOW RESIDUALS PER NSG PT RECEIVING GLUCERNA TF AT MAX GOAL RATE 55ML/HR WITH 30ML PROSOURCE BID AND 120ML FREE WATER FLUSHES Q 4 HRS PROVIDES 1440KCALS (24KCALS/KG), 85G PROTEIN (1.4G/KG), 1846ML TOTAL FREE WATER FROM FORMULA AND FLUSHES (31ML/KG) MONITOR TOLERANCE, RESIDUALS AND LYTES
--- NOTE | 2023-09-03 10:47 | PM.CCPN ---
Subjective Subjective Date of Service: 09/03/23 Interval History: 53-year-old lady with underlying morbid obesity, CHITO with hyperventilation syndrome with CO2 retention on supplemental oxygen at 3 L and nocturnal BiPAP, asthma/COPD overlap syndrome, diastolic heart failure, diabetes mellitus, opioid dependence on methadone with multiple admissions for respiratory failure admitted on 08/02/2023 with acute on chronic hypoxic and hypercapnic respiratory failure initially to telemetry michel, however on 08/05/2023 patient with worsening CO2 retention with poor improvement on BiPAP support requiring transfer to the intensive care unit and intubation. Failed extubation 08/11/2023. Now status post tracheostomy/gastrostomy on 08/12/2023. No events overnight. Critical Care Time (minutes): 60 Physical Exam Vital Signs: Vital Signs: Last Vital Signs Temp 97.5 F 09/03/23 08:00 Pulse 123 H 09/03/23 10:00 Resp 15 09/03/23 10:00 BP 114/81 09/03/23 10:00 Pulse Ox 94 09/03/23 10:00 O2 Del Method Mechanical Ventil ation 09/03/23 10:00 O2 Flow Rate 40 09/01/23 19:00 FiO2 25 09/03/23 10:00 BMI result Body Mass Index 37.3 Const: General: no acute distress and awake Nutritional Appearance: obese Eyes: Sclerae: sclerae normal EOM: EOMs intact bilaterally Neck: Neck: Yes no lymphadenopathy, Yes trachea midline, Yes supple and Yes tracheostomy present (On vent) Resp: Effort & Inspection: normal respiratory effort and no respiratory distress Auscultation: clear to auscultation bilaterally Cardio: Rate: tachycardic Rhythm: regular rhythm Heart sounds: no gallops, no murmurs and no rubs GI: Inspection: Yes G-tube present Palpation (GI): Soft to palpation and Other GI palpation findings present ( Nontender) Auscultation: normal bowel sounds Extrem: General: No clubbing, No cyanosis and Yes pedal edema (Trace bilateral) Objective Data Labs 09/03/23 07:11 09/03/23 07:11 Labs: Laboratory Results - last 24 hr 09/02/23 09/02/23 09/02/23 11:15 12:15 13:19 WBC RBC Hgb Hct MCV MCH MCHC RDW Plt Count MPV Immature Gran % (Auto) Neut % (Auto) Lymph % (Auto) [place] % (Auto) Eos % (Auto) Baso % (Auto) Lymph # (Auto) [place] # (Auto) Eos # (Auto) Baso # (Auto) Abs Immat Gran (auto) Absolute Neuts (auto) Absolute Nucleated RBC Nucleated RBC % (auto) VBG pH VBG pCO2 VBG pO2 VBG HCO3 VBG O2 Saturation VBG Base Excess Sodium Potassium Chloride Carbon Dioxide Anion Gap BUN Creatinine Estim Creat Clear Calc Estimated GFR POC Glucose 186 H 187 H Random Glucose Calcium Phosphorus Magnesium Albumin Random Vancomycin 7.2 L 09/02/23 09/03/23 09/03/23 17:32 00:01 06:11 WBC RBC Hgb Hct MCV MCH MCHC RDW Plt Count MPV Immature Gran % (Auto) Neut % (Auto) Lymph % (Auto) [place] % (Auto) Eos % (Auto) Baso % (Auto) Lymph # (Auto) [place] # (Auto) Eos # (Auto) Baso # (Auto) Abs Immat Gran (auto) Absolute Neuts (auto) Absolute Nucleated RBC Nucleated RBC % (auto) VBG pH VBG pCO2 VBG pO2 VBG HCO3 VBG O2 Saturation VBG Base Excess Sodium Potassium Chloride Carbon Dioxide Anion Gap BUN Creatinine Estim Creat Clear Calc Estimated GFR POC Glucose 191 H 130 H 141 H Random Glucose Calcium Phosphorus Magnesium Albumin Random Vancomycin 09/03/23 09/03/23 07:11 07:14 WBC 10.5 RBC 3.10 L Hgb 8.9 L Hct 31.0 L MCV 100.0 H MCH 28.7 MCHC 28.7 L RDW 18.7 H Plt Count 349 MPV 9.2 L Immature Gran % (Auto) 1.0 H Neut % (Auto) 69.7 Lymph % (Auto) 17.9 L [place] % (Auto) 10.2 Eos % (Auto) 0.5 Baso % (Auto) 0.7 Lymph # (Auto) 1.9 [place] # (Auto) 1.1 Eos # (Auto) 0.1 Baso # (Auto) 0.1 Abs Immat Gran (auto) 0.11 H Absolute Neuts (auto) 7.3 Absolute Nucleated RBC 0.040 H Nucleated RBC % (auto) 0.4 H VBG pH 7.53 H VBG pCO2 54 VBG pO2 65 VBG HCO3 45 H VBG O2 Saturation 93.0 VBG Base Excess 20.0 Sodium 141 Potassium 3.8 Chloride 94 L Carbon Dioxide 35 H Anion Gap 16 BUN 6 L Creatinine 0.75 Estim Creat Clear Calc 84.8 Estimated GFR > 60 POC Glucose Random Glucose 149 H Calcium 10.4 H Phosphorus 3.2 Magnesium 1.9 Albumin 3.8 Random Vancomycin Microbiology Microbiology Results: Microbiology 08/26/23 14:13 Blood - Venous Blood Culture - Final No growth after 5 days. 08/26/23 14:13 Blood - Venous Blood Culture - Final No growth after 5 days. 08/26/23 11:25 Tracheal Aspirate Gram Stain - Final 08/26/23 11:25 Tracheal Aspirate Sputum Culture - Final Corynebacterium species 08/22/23 11:35 Neck Gram Stain - Final 08/22/23 11:35 Neck Routine Culture - Final Group F Streptococcus 08/19/23 09:51 Blood - Venous Blood Culture - Final No growth after 5 days. 08/19/23 09:51 Blood - Venous Blood Culture - Final No growth after 5 days. 08/21/23 17:34 Tracheal Aspirate Gram Stain - Final 08/21/23 17:34 Tracheal Aspirate Sputum Culture - Final Corynebacterium species 08/22/23 11:42 Urine Catheterized - Adan Catheter Urine Culture - Final No growth. 08/03/23 16:38 Sputum - Expectorated Gram Stain - Final 08/03/23 16:38 Sputum - Expectorated Sputum Culture - Final Aspergillus fumigatus 08/02/23 14:20 Blood - Venous Blood Culture - Final No growth after 5 days. 08/02/23 13:36 Blood - Venous Blood Culture - Final No growth after 5 days. Progress Note: A&P Assessment and plan (1) Status post tracheostomy: Status: Acute (2) Status post insertion of percutaneous endoscopic gastrostomy (PEG) tube: Status: Acute (3) Opioid dependence: Status: Acute (4) Type 2 diabetes mellitus: Status: Acute (5) Diastolic heart failure: Status: Acute (6) Intensive care (ICU) myopathy: Status: Acute (7) COPD (chronic obstructive pulmonary disease): Status: Acute (8) Obesity hypoventilation syndrome: Status: Acute (9) Chronic respiratory failure: Status: Acute Plan Assessment: 53-year-old lady with underlying CHITO with obesity hyperventilation, asthma/COPD, obesity, diastolic heart failure admitted with acute on chronic hypoxic and hypercapnic respiratory failure now requiring ventilatory support. Plan: Neuro: Waxing and waning mental status, continues to improve slowly. Repeat MRI brain with no acute findings. Does have significant anxiety component, continue on BuSpar. Cardiac: Acute on chronic diastolic congestive heart failure resolved with diuresis. Pulmonary: Acute on chronic hypoxic and hypercapnic respiratory failure now requiring ventilatory support. Failed extubation 08/11/2023. Now status post tracheostomy/gastrostomy on 08/12/2023. Now with improving tolerance of pressor support trials. Continue to titrate off ventilatory support as tolerated. Renal: No acute issues. Endo: No acute issues. Underlying diabetes mellitus. GI: No acute issues. ID: No acute issues Heme/Onc: Upper extremity DVT, continue full-dose Lovenox. Psych: No acute issues. Underlying opioid dependence. Miscellaneous: No acute issues. Prophylaxis: Lovenox, famotidine Diet: Tube feed Critical care time spent: 60 minutes Quality Stroke Does the patient have a stroke diagnosis?: No VTE Prior VTE?: Yes Approximate Date of Prior VTE: 08/27/23 VTE Risk Level:: Medical - moderate - high VTE Device Contraindication: Treatment Not Indicated VTE Drug Contraindication: N/A - Med Ordered
[2023-09-03] MEDS: Enoxaparin Sodium 100 MG/ML SYRINGE 90 MG SUBCUT ×2 (10:49→21:51)
[2023-09-03 11:25] LABS: Glucose, Whole Blood 188 mg/dL (60-115)
--- NOTE | 2023-09-03 11:49 | MHC.CM.PN ---
Per MD rounds Patient required IV Versed this morning. She is tolerating tube feeds. A clinical update has been sent to Vaishali.
[2023-09-03] MEDS: Insulin Lispro 100 UNIT/ML 3 ML VIAL SUBCUT ×4 (12:17→17:49)
[2023-09-03 17:46] LABS: Glucose, Whole Blood 214 mg/dL (60-115)
[2023-09-03] MEDS: Midazolam HCl/PF 2 MG/2 ML VIAL 4 MG IVPUSH (18:27)
[2023-09-03 23:52] LABS: Glucose, Whole Blood 164 mg/dL (60-115)
[2023-09-04] VITALS (38 sets, daily range): BP systolic 99–148; BP diastolic 50–103; PULSE 108–134; RESP 14–33; TEMP 34.8–37.6; O2SAT 92–100; BMI 37.5
[2023-09-04] MEDS: 0.9 % Sodium Chloride Flush 3 ML SYRINGE IVFLUSH ×4 (00:08→22:55)
[2023-09-04] MEDS: Insulin Lispro 100 UNIT/ML 3 ML VIAL SUBCUT ×8 (00:08→18:41)
[2023-09-04] MEDS: Midazolam HCl/PF 2 MG/2 ML VIAL IVPUSH ×2 (00:29→01:36)
[2023-09-04 04:48] LABS: VBG Base Excess 18.1 mmol/L; VBG HCO3 42 mmol/L (22-26); VBG pCO2 49 mmHg; VBG pH 7.54 (7.32-7.43); VBG pO2 57 mmHg
[2023-09-04 04:50] LABS: Venous Blood Gas Refer to POC result
[2023-09-04 05:05] LABS: MANUAL DIFF FLAG NO
[2023-09-04 05:06] LABS: Basophils Absolute Auto 0.1 X10*3/uL (0.0-0.2); Basophils Percent Auto 0.6 % (0-2); Eosinophils Absolute Auto 0.1 X10*3/uL (0.0-0.4); Eosinophils Percent Auto 0.5 % (0-4); Hematocrit 29.2 % (37.0-47.0); Hemoglobin 8.7 g/dl (12.0-16.0); Imm Gran Abs Auto 0.12 X10*3/uL (0.00-0.03); Lymphocytes Absolute Auto 2.7 X10*3/uL (1.2-4.9); Lymphocytes Percent Auto 21.4 % (20-40); Mean Corpuscular HGB Conc 29.8 g/dl (31.0-35.0); Mean Corpuscular Volume 97.3 fL (80.0-98.0); Mean Platelet Volume 9.2 fL (9.4-12.3); Monocytes Absolute Auto 1.4 X10*3/uL (0.1-1.2); Monocytes Percent Auto 10.9 % (2-11); NRBC Pct Auto 0.3 /100WBC (0.0-0.2); Neutrophils Absolute Auto 8.2 x10*3/uL (2.0-8.3); Neutrophils Percent Auto 65.6 % (45-73); Platelet Count 371 X10*3/uL (160-400); Red Cell Distribution Width 18.7 % (11.0-16.0); White Blood Count 12.6 X10*3/uL (4.8-10.8)
[2023-09-04 05:24] LABS: Albumin Level 3.5 g/dL (3.5-5.0); Anion Gap 17 (12-20); Blood Urea Nitrogen 12 mg/dL (9-16); Calcium 10.7 mg/dL (8.4-10.2); Carbon Dioxide 34 mmol/L (22-29); Chloride 94 mmol/L (96-108); Creatinine Clr Calc Pharmacy 83.7; Estimated Glomerular Filt Rate > 60; Glucose Random 188 mg/dL (60-115); Phosphorus 4.1 mg/dL (2.7-4.5); Potassium 4.8 mmol/L (3.3-5.1); Sodium 140 mmol/L (135-145)
[2023-09-04 06:00] LABS: Glucose, Whole Blood 212 mg/dL (60-115)
[2023-09-04] MEDS: hydrOXYzine HCL 50 MG TABLET PO ×2 (06:03→13:57)
[2023-09-04] MEDS: Albuterol/Iprat 2.5/0.5MG 3 ML AMPUL.NEB INHALE ×3 (07:19→20:10)
[2023-09-04] MEDS: Furosemide 40 MG/4 ML VIAL IVPUSH ×2 (08:00→18:41)
[2023-09-04] MEDS: Famotidine/PF 20 MG/2 ML VIAL IVPUSH (08:00)
[2023-09-04] MEDS: Nystatin Oral Susp 500,000 UNIT/5 ML ORAL.SUSP 100000 UNIT BUCCAL ×3 (08:00→20:44)
[2023-09-04] MEDS: Chlorhexidine Gluc Oral Rinse 15 ML MOUTHWASH BUCCAL ×3 (08:00→20:45)
[2023-09-04] MEDS: Potassium Chloride Packet 20 MEQ PACKET 40 MEQ PO ×2 (08:00→20:44)
[2023-09-04] MEDS: Calcitonin,Salmon,Synth Nasal 3.7 ML BOTTLE 1 SPRAY NOSTRIL-B (08:01)
[2023-09-04] MEDS: lamoTRIgine 100 MG TABLET 150 MG PO ×2 (08:01→20:44)
[2023-09-04] MEDS: dilTIAZem HCL 60 MG TABLET PO ×4 (08:01→20:42)
[2023-09-04] MEDS: busPIRone HCl 10 MG TABLET PO ×2 (08:01→20:42)
--- NOTE | 2023-09-04 09:54 | PM.CCPN ---
Subjective Subjective Date of Service: 09/04/23 Interval History: 53-year-old lady with underlying morbid obesity, CHITO with hyperventilation syndrome with CO2 retention on supplemental oxygen at 3 L and nocturnal BiPAP, asthma/COPD overlap syndrome, diastolic heart failure, diabetes mellitus, opioid dependence on methadone with multiple admissions for respiratory failure admitted on 08/02/2023 with acute on chronic hypoxic and hypercapnic respiratory failure initially to telemetry michel, however on 08/05/2023 patient with worsening CO2 retention with poor improvement on BiPAP support requiring transfer to the intensive care unit and intubation. Failed extubation 08/11/2023. Now status post tracheostomy/gastrostomy on 08/12/2023. No events overnight. Critical Care Time (minutes): 60 Physical Exam Vital Signs: Vital Signs: Last Vital Signs Temp 98.8 F 09/04/23 08:00 Pulse 112 H 09/04/23 09:00 Resp 20 09/04/23 09:00 BP 117/62 09/04/23 09:00 Pulse Ox 94 09/04/23 09:00 O2 Del Method Mechanical Ventil ation 09/04/23 09:00 O2 Flow Rate 40 09/01/23 19:00 FiO2 35 09/04/23 09:00 BMI result Body Mass Index 37.5 Const: General: no acute distress and awake Nutritional Appearance: obese Eyes: Sclerae: sclerae normal EOM: EOMs intact bilaterally Neck: Neck: Yes no lymphadenopathy, Yes trachea midline, Yes supple and Yes tracheostomy present (On vent) Resp: Auscultation: clear to auscultation bilaterally Cardio: Rate: tachycardic Rhythm: regular rhythm Heart sounds: no gallops, no murmurs and no rubs GI: Inspection: Yes G-tube present Palpation (GI): Soft to palpation and Other GI palpation findings present ( Nontender) Auscultation: normal bowel sounds Extrem: General: Yes no pedal edema, No clubbing and No cyanosis Objective Data Labs 09/04/23 04:38 09/04/23 04:38 Labs: Laboratory Results - last 24 hr 09/03/23 09/03/23 09/03/23 11:21 17:39 23:46 WBC RBC Hgb Hct MCV MCH MCHC RDW Plt Count MPV Immature Gran % (Auto) Neut % (Auto) Lymph % (Auto) [place] % (Auto) Eos % (Auto) Baso % (Auto) Lymph # (Auto) [place] # (Auto) Eos # (Auto) Baso # (Auto) Abs Immat Gran (auto) Absolute Neuts (auto) Absolute Nucleated RBC Nucleated RBC % (auto) VBG pH VBG pCO2 VBG pO2 VBG HCO3 VBG O2 Saturation VBG Base Excess Sodium Potassium Chloride Carbon Dioxide Anion Gap BUN Creatinine Estim Creat Clear Calc Estimated GFR POC Glucose 188 H 214 H 164 H Random Glucose Calcium Phosphorus Magnesium Albumin 09/04/23 09/04/23 04:38 05:55 WBC 12.6 H RBC 3.00 L Hgb 8.7 L Hct 29.2 L MCV 97.3 MCH 29.0 MCHC 29.8 L RDW 18.7 H Plt Count 371 MPV 9.2 L Immature Gran % (Auto) 1.0 H Neut % (Auto) 65.6 Lymph % (Auto) 21.4 [place] % (Auto) 10.9 Eos % (Auto) 0.5 Baso % (Auto) 0.6 Lymph # (Auto) 2.7 [place] # (Auto) 1.4 H Eos # (Auto) 0.1 Baso # (Auto) 0.1 Abs Immat Gran (auto) 0.12 H Absolute Neuts (auto) 8.2 Absolute Nucleated RBC 0.040 H Nucleated RBC % (auto) 0.3 H VBG pH 7.54 H VBG pCO2 49 VBG pO2 57 VBG HCO3 42 H VBG O2 Saturation 87.0 VBG Base Excess 18.1 Sodium 140 Potassium 4.8 D Chloride 94 L Carbon Dioxide 34 H Anion Gap 17 BUN 12 Creatinine 0.76 Estim Creat Clear Calc 83.7 Estimated GFR > 60 POC Glucose 212 H Random Glucose 188 H Calcium 10.7 H Phosphorus 4.1 Magnesium 2.0 Albumin 3.5 Microbiology Microbiology Results: Microbiology 08/26/23 14:13 Blood - Venous Blood Culture - Final No growth after 5 days. 08/26/23 14:13 Blood - Venous Blood Culture - Final No growth after 5 days. 08/26/23 11:25 Tracheal Aspirate Gram Stain - Final 08/26/23 11:25 Tracheal Aspirate Sputum Culture - Final Corynebacterium species 08/22/23 11:35 Neck Gram Stain - Final 08/22/23 11:35 Neck Routine Culture - Final Group F Streptococcus 08/19/23 09:51 Blood - Venous Blood Culture - Final No growth after 5 days. 08/19/23 09:51 Blood - Venous Blood Culture - Final No growth after 5 days. 08/21/23 17:34 Tracheal Aspirate Gram Stain - Final 08/21/23 17:34 Tracheal Aspirate Sputum Culture - Final Corynebacterium species 08/22/23 11:42 Urine Catheterized - Adan Catheter Urine Culture - Final No growth. 08/03/23 16:38 Sputum - Expectorated Gram Stain - Final 08/03/23 16:38 Sputum - Expectorated Sputum Culture - Final Aspergillus fumigatus 08/02/23 14:20 Blood - Venous Blood Culture - Final No growth after 5 days. 08/02/23 13:36 Blood - Venous Blood Culture - Final No growth after 5 days. Progress Note: A&P Assessment and plan (1) Status post tracheostomy: Status: Acute (2) Status post insertion of percutaneous endoscopic gastrostomy (PEG) tube: Status: Acute (3) Type 2 diabetes mellitus: Status: Acute (4) Diastolic heart failure: Status: Acute (5) Intensive care (ICU) myopathy: Status: Acute (6) COPD (chronic obstructive pulmonary disease): Status: Acute (7) Obesity hypoventilation syndrome: Status: Acute Plan Assessment: 53-year-old lady with underlying CHITO with obesity hyperventilation, asthma/COPD, obesity, diastolic heart failure admitted with acute on chronic hypoxic and hypercapnic respiratory failure now requiring ventilatory support. Plan: Neuro: Waxing and waning mental status, continues to improve slowly. Repeat MRI brain with no acute findings. Does have significant anxiety component, continue on BuSpar. Cardiac: Acute on chronic diastolic congestive heart failure resolved with diuresis. Pulmonary: Acute on chronic hypoxic and hypercapnic respiratory failure now requiring ventilatory support. Failed extubation 08/11/2023. Now status post tracheostomy/gastrostomy on 08/12/2023. Now with improving tolerance of pressor support trials. Continue to titrate off ventilatory support as tolerated. Renal: No acute issues. Endo: No acute issues. Underlying diabetes mellitus. GI: No acute issues. ID: No acute issues Heme/Onc: Upper extremity DVT, continue full-dose Lovenox. Psych: No acute issues. Underlying opioid dependence. Miscellaneous: No acute issues. Prophylaxis: Lovenox, famotidine Diet: Tube feed Critical care time spent: 60 minutes Quality Stroke Does the patient have a stroke diagnosis?: No VTE Prior VTE?: Yes Approximate Date of Prior VTE: 08/27/23 VTE Risk Level:: Medical - moderate - high VTE Device Contraindication: Treatment Not Indicated VTE Drug Contraindication: N/A - Med Ordered
[2023-09-04] MEDS: LORazepam 2 MG/ML VIAL IVPUSH ×2 (11:07→16:14)
[2023-09-04] MEDS: Enoxaparin Sodium 100 MG/ML SYRINGE 90 MG SUBCUT ×2 (11:07→22:53)
[2023-09-04 12:17] LABS: Glucose, Whole Blood 242 mg/dL (60-115)
[2023-09-04] MEDS: Acetaminophen 325 MG TABLET 975 MG PO (13:55)
[2023-09-04 18:34] LABS: Glucose, Whole Blood 198 mg/dL (60-115)
[2023-09-05] VITALS (43 sets, daily range): BP systolic 92–143; BP diastolic 55–117; PULSE 114–150; RESP 18–42; TEMP 29.8–38.2; O2SAT 90–100; BMI 37.7
[2023-09-05 00:06] LABS: Glucose, Whole Blood 244 mg/dL (60-115)
[2023-09-05] MEDS: Insulin Lispro 100 UNIT/ML 3 ML VIAL SUBCUT ×8 (00:14→17:31)
[2023-09-05] MEDS: LORazepam 2 MG/ML VIAL IVPUSH ×4 (00:17→18:10)
[2023-09-05] MEDS: Albuterol/Iprat 2.5/0.5MG 3 ML AMPUL.NEB INHALE ×5 (00:33→19:04)
[2023-09-05 04:56] LABS: Basophils Absolute Auto 0.1 X10*3/uL (0.0-0.2); Basophils Percent Auto 0.6 % (0-2); Eosinophils Percent Auto 0.2 % (0-4); Hematocrit 27.9 % (37.0-47.0); Hemoglobin 8.4 g/dl (12.0-16.0); Imm Gran Abs Auto 0.09 X10*3/uL (0.00-0.03); Imm Gran Pct Auto 0.6 % (0.0-0.4); Lymphocytes Absolute Auto 2.6 X10*3/uL (1.2-4.9); MANUAL DIFF FLAG SCAN; Mean Corpuscular HGB Conc 30.1 g/dl (31.0-35.0); Mean Corpuscular Volume 96.2 fL (80.0-98.0); Monocytes Absolute Auto 1.7 X10*3/uL (0.1-1.2); Monocytes Percent Auto 10.6 % (2-11); NRBC Pct Auto 0.2 /100WBC (0.0-0.2); Neutrophils Absolute Auto 11.8 x10*3/uL (2.0-8.3); Platelet Count 397 X10*3/uL (160-400); Red Cell Distribution Width 18.6 % (11.0-16.0); SCAN SMEAR FLAG 1; White Blood Count 16.3 X10*3/uL (4.8-10.8)
[2023-09-05 05:00] LABS: VBG Base Excess 15.1 mmol/L; VBG HCO3 39 mmol/L (22-26); VBG pCO2 45 mmHg; VBG pH 7.54 (7.32-7.43); VBG pO2 61 mmHg
[2023-09-05 05:02] LABS: Venous Blood Gas Refer to POC result
[2023-09-05 05:11] LABS: Albumin Level 3.5 g/dL (3.5-5.0); Anion Gap 18 (12-20); Blood Urea Nitrogen 17 mg/dL (9-16); Calcium 10.7 mg/dL (8.4-10.2); Carbon Dioxide 31 mmol/L (22-29); Chloride 94 mmol/L (96-108); Creatinine Clr Calc Pharmacy 81.9; Estimated Glomerular Filt Rate > 60; Glucose Random 231 mg/dL (60-115); Magnesium 2.1 mg/dL (1.6-2.6); Phosphorus 4.6 mg/dL (2.7-4.5); Potassium 5.2 mmol/L (3.3-5.1); Sodium 138 mmol/L (135-145)
[2023-09-05 05:24] LABS: SLIDE REVIEW VERIFIED
[2023-09-05] MEDS: 0.9 % Sodium Chloride Flush 3 ML SYRINGE IVFLUSH (07:57)
[2023-09-05] MEDS: Famotidine/PF 20 MG/2 ML VIAL IVPUSH (07:57)
[2023-09-05] MEDS: Potassium Chloride Packet 20 MEQ PACKET 40 MEQ PO ×2 (07:57→20:04)
[2023-09-05] MEDS: lamoTRIgine 100 MG TABLET 150 MG PO ×2 (07:58→20:04)
[2023-09-05] MEDS: busPIRone HCl 10 MG TABLET PO ×2 (07:58→20:04)
[2023-09-05] MEDS: Nystatin Oral Susp 500,000 UNIT/5 ML ORAL.SUSP 100000 UNIT BUCCAL ×3 (07:58→20:05)
[2023-09-05] MEDS: Chlorhexidine Gluc Oral Rinse 15 ML MOUTHWASH BUCCAL ×3 (07:58→20:04)
[2023-09-05] MEDS: dilTIAZem HCL 60 MG TABLET PO ×4 (07:58→20:05)
[2023-09-05] MEDS: Furosemide 40 MG/4 ML VIAL IVPUSH ×2 (07:59→17:30)
[2023-09-05] MEDS: Calcitonin,Salmon,Synth Nasal 3.7 ML BOTTLE 1 SPRAY NOSTRIL-B (08:05)
--- NOTE | 2023-09-05 09:21 | MHC.CLN ---
F/U REVIEWED LABS DISCUSSED AT ROUNDS WITH TF AT MAX GOAL RATE TOLERATING WELL WITH LOW RESIDUALS PER NSG PT RECEIVING GLUCERNA TF AT MAX GOAL RATE 55ML/HR WITH 30ML PROSOURCE BID AND 120ML FREE WATER FLUSHES Q 4 HRS PROVIDES 1440KCALS (24KCALS/KG), 85G PROTEIN (1.4G/KG), 1846ML TOTAL FREE WATER FROM FORMULA AND FLUSHES (31ML/KG) MONITOR TOLERANCE, RESIDUALS AND LYTES GLUCERNA TUBE FEEDING ON BACK ORDER AND FACILITY SUPPLY IS ALMOST EXHAUSTED WHEN GLUCERNA SUPPLY EXHAUSTED; RECOMMEND SWITCHING TF FORMULAS: PROMOTE AT MAX GOAL RATE 55ML/HR WITH 120ML FREE WATER FLUSHES Q 8 HRS TO PROVIDE 1320KCALS (23KCALS/KG), 82.5G PROTEIN (1.4G/KG), 1467ML TOTAL WATER FROM FORMULA AND FLUSHES (25ML/KG) MONITOR TOLERANCE, RESIDUALS AND LYTES PLUS POC FORMULA WITH INCREASED CHO RD CAN BE REACHED VIA TIGER CONNECT DURING OFF HOURS IF NEEDED
--- NOTE | 2023-09-05 10:06 | PM.CCPN ---
Subjective Subjective Date of Service: 09/05/23 Interval History: 53-year-old lady with underlying morbid obesity, CHITO with hyperventilation syndrome with CO2 retention on supplemental oxygen at 3 L and nocturnal BiPAP, asthma/COPD overlap syndrome, diastolic heart failure, diabetes mellitus, opioid dependence on methadone with multiple admissions for respiratory failure admitted on 08/02/2023 with acute on chronic hypoxic and hypercapnic respiratory failure initially to telemetry michel, however on 08/05/2023 patient with worsening CO2 retention with poor improvement on BiPAP support requiring transfer to the intensive care unit and intubation. Failed extubation 08/11/2023. Now status post tracheostomy/gastrostomy on 08/12/2023. No events overnight. Now with improving tolerance of being in recliner and pressor support trials. Mental status is slowly improving also. Critical Care Time (minutes): 60 Physical Exam Vital Signs: Vital Signs: Last Vital Signs Temp 97.7 F 09/05/23 08:00 Pulse 131 H 09/05/23 09:00 Resp 24 H 09/05/23 09:00 BP 128/66 09/05/23 09:00 Pulse Ox 91 L 09/05/23 09:00 O2 Del Method Mechanical Ventil ation 09/05/23 09:00 O2 Flow Rate 35 09/05/23 01:00 FiO2 30 09/05/23 09:00 BMI result Body Mass Index 37.7 Const: General: no acute distress, alert and awake Nutritional Appearance: obese Eyes: Sclerae: sclerae normal EOM: EOMs intact bilaterally Neck: Neck: Yes no lymphadenopathy, Yes trachea midline, Yes supple and Yes tracheostomy present (On vent) Resp: Auscultation: clear to auscultation bilaterally Cardio: Rate: tachycardic Rhythm: regular rhythm Heart sounds: no gallops, no murmurs and no rubs GI: Inspection: Yes G-tube present Palpation (GI): Soft to palpation and Other GI palpation findings present ( Nontender) Auscultation: normal bowel sounds Extrem: General: Yes no pedal edema, No clubbing and No cyanosis Objective Data Labs 09/05/23 04:49 09/05/23 04:49 Labs: Laboratory Results - last 24 hr 09/04/23 09/04/23 09/04/23 12:12 18:04 23:57 WBC RBC Hgb Hct MCV MCH MCHC RDW Plt Count MPV Immature Gran % (Auto) Neut % (Auto) Lymph % (Auto) [place] % (Auto) Eos % (Auto) Baso % (Auto) Lymph # (Auto) [place] # (Auto) Eos # (Auto) Baso # (Auto) Abs Immat Gran (auto) Absolute Neuts (auto) Absolute Nucleated RBC Nucleated RBC % (auto) Smear Tech's Comments VBG pH VBG pCO2 VBG pO2 VBG HCO3 VBG O2 Saturation VBG Base Excess Sodium Potassium Chloride Carbon Dioxide Anion Gap BUN Creatinine Estim Creat Clear Calc Estimated GFR POC Glucose 242 H 198 H 244 H Random Glucose Calcium Phosphorus Magnesium Albumin 09/05/23 09/05/23 04:49 04:50 WBC 16.3 H RBC 2.90 L Hgb 8.4 L Hct 27.9 L MCV 96.2 MCH 29.0 MCHC 30.1 L RDW 18.6 H Plt Count 397 MPV 9.0 L Immature Gran % (Auto) 0.6 H Neut % (Auto) 72.0 Lymph % (Auto) 16.0 L [place] % (Auto) 10.6 Eos % (Auto) 0.2 Baso % (Auto) 0.6 Lymph # (Auto) 2.6 [place] # (Auto) 1.7 H Eos # (Auto) 0.0 Baso # (Auto) 0.1 Abs Immat Gran (auto) 0.09 H Absolute Neuts (auto) 11.8 H Absolute Nucleated RBC 0.030 H Nucleated RBC % (auto) 0.2 Smear Tech's Comments VERIFIED VBG pH 7.54 H VBG pCO2 45 VBG pO2 61 VBG HCO3 39 H VBG O2 Saturation 89.0 VBG Base Excess 15.1 Sodium 138 Potassium 5.2 H Chloride 94 L Carbon Dioxide 31 H Anion Gap 18 BUN 17 H Creatinine 0.78 Estim Creat Clear Calc 81.9 Estimated GFR > 60 POC Glucose Random Glucose 231 H Calcium 10.7 H Phosphorus 4.6 H Magnesium 2.1 Albumin 3.5 Microbiology Microbiology Results: Microbiology 08/26/23 14:13 Blood - Venous Blood Culture - Final No growth after 5 days. 08/26/23 14:13 Blood - Venous Blood Culture - Final No growth after 5 days. 08/26/23 11:25 Tracheal Aspirate Gram Stain - Final 08/26/23 11:25 Tracheal Aspirate Sputum Culture - Final Corynebacterium species 08/22/23 11:35 Neck Gram Stain - Final 08/22/23 11:35 Neck Routine Culture - Final Group F Streptococcus 08/19/23 09:51 Blood - Venous Blood Culture - Final No growth after 5 days. 08/19/23 09:51 Blood - Venous Blood Culture - Final No growth after 5 days. 08/21/23 17:34 Tracheal Aspirate Gram Stain - Final 08/21/23 17:34 Tracheal Aspirate Sputum Culture - Final Corynebacterium species 08/22/23 11:42 Urine Catheterized - Adan Catheter Urine Culture - Final No growth. 08/03/23 16:38 Sputum - Expectorated Gram Stain - Final 08/03/23 16:38 Sputum - Expectorated Sputum Culture - Final Aspergillus fumigatus 08/02/23 14:20 Blood - Venous Blood Culture - Final No growth after 5 days. 08/02/23 13:36 Blood - Venous Blood Culture - Final No growth after 5 days. Progress Note: A&P Assessment and plan (1) Status post tracheostomy: Status: Acute (2) Status post insertion of percutaneous endoscopic gastrostomy (PEG) tube: Status: Acute (3) Type 2 diabetes mellitus: Status: Acute (4) Diastolic heart failure: Status: Acute (5) Intensive care (ICU) myopathy: Status: Acute (6) Obesity hypoventilation syndrome: Status: Acute (7) COPD (chronic obstructive pulmonary disease): Status: Acute Plan Assessment: 53-year-old lady with underlying CHITO with obesity hyperventilation, asthma/COPD, obesity, diastolic heart failure admitted with acute on chronic hypoxic and hypercapnic respiratory failure now requiring ventilatory support. Plan: Neuro: Waxing and waning mental status, continues to improve slowly. Repeat MRI brain with no acute findings. Does have significant anxiety component, continue on BuSpar. Cardiac: No acute issues. Pulmonary: Acute on chronic hypoxic and hypercapnic respiratory failure now requiring ventilatory support. Failed extubation 08/11/2023. Now status post tracheostomy/gastrostomy on 08/12/2023. Continues with improving tolerance of pressor support trials. Continue to titrate off ventilatory support as tolerated. Renal: No acute issues. Endo: No acute issues. Underlying diabetes mellitus. GI: No acute issues. ID: No acute issues Heme/Onc: Upper extremity DVT, continue full-dose Lovenox. Psych: No acute issues. Underlying opioid dependence. Miscellaneous: No acute issues. Prophylaxis: Lovenox, famotidine Diet: Tube feed Critical care time spent: 60 minutes Quality Stroke Does the patient have a stroke diagnosis?: No VTE Prior VTE?: Yes Approximate Date of Prior VTE: 08/27/23 VTE Risk Level:: Medical - moderate - high VTE Device Contraindication: Treatment Not Indicated VTE Drug Contraindication: N/A - Med Ordered
[2023-09-05] MEDS: Chlorothiazide Sodium 500 MG VIAL IVPUSH (10:08)
[2023-09-05] MEDS: Enoxaparin Sodium 100 MG/ML SYRINGE 90 MG SUBCUT ×2 (10:08→23:38)
[2023-09-05] MEDS: hydrOXYzine HCL 50 MG TABLET PO ×2 (12:04→19:11)
[2023-09-05 12:10] LABS: Glucose, Whole Blood 272 mg/dL (60-115)
[2023-09-05] MEDS: methADONE HCl 20 MG/2 ML ORAL.CONC 15 MG PO (12:38)
--- NOTE | 2023-09-05 15:55 | MHC.CM.PN ---
PATIENT CONTINUES 1:1 . A clinical update has been sent to Vaishali. Alessandra has been notified that the hallucinations have resolved. Patient is receiving Lorazapam instead of Versed. Methadone has been stopped again. RIGOBERTO Tom via BLS.
[2023-09-05 17:29] LABS: Glucose, Whole Blood 313 mg/dL (60-115)
--- NOTE | 2023-09-05 19:22 | PC.NURSE ---
Addendum entered by Daria Hobbs RN 09/05/23 19:32: temp 100.7 temporal, prn tylenol given Original Note: unpon initail assesment pt found to be restless, reaching arms ,moving legs in bed, HR 140s RR 40s, PRN ativan given previously, PRN atarax given, SAS ADMINISTRATOR made aware, sitter at bedside, incon of stool, care providied, lights dimmed tv off
[2023-09-05] MEDS: Acetaminophen 325 MG TABLET 975 MG PO (19:29)
[2023-09-05] MEDS: ondansetron HCL 4 MG/2 ML VIAL IVPUSH (20:05)
[2023-09-05] MEDS: fentaNYL citrate/PF 100 MCG/2 ML VIAL IVPUSH (20:25)
[2023-09-05] MEDS: Metoprolol Tartrate 10 MG in 0.9 % Sodium Chloride 50 ML 240 MG IV (21:00)
[2023-09-05 23:54] LABS: Glucose, Whole Blood 344 mg/dL (60-115)
[2023-09-06] VITALS (51 sets, daily range): BP systolic 71–132; BP diastolic 35–89; PULSE 113–138; RESP 13–114; TEMP 34.7–38.1; O2SAT 92–100; BMI 37.9
--- NOTE | 2023-09-06 | ECG_ITS ---
Test Reason : arrhythmia Blood Pressure : / mmHG Vent. Rate : 128 BPM Atrial Rate : 128 BPM P-R Int : 184 ms QRS Dur : 076 ms QT Int : 296 ms P-R-T Axes : -18 023 074 degrees QTc Int : 432 ms Sinus tachycardia Low voltage QRS Anterior injury pattern Bizarre widening of T waves- consider hyperkalemia vs ischemia Abnormal ECG When compared with ECG of 21-AUG-2023 23:41, Diffuse T wave changes- consider hyperkalemia Referred By: Rasta Geller Electronically Signed By:Harris Phillips
[2023-09-06] MEDS: Insulin Lispro 100 UNIT/ML 3 ML VIAL SUBCUT ×8 (00:02→17:52)
[2023-09-06] MEDS: Albumin Human 25 % 100 ML IV ×2 (00:11→01:40)
[2023-09-06] MEDS: LORazepam 2 MG/ML VIAL IVPUSH ×2 (04:24→10:58)
[2023-09-06 04:45] LABS: VBG HCO3 42 mmol/L (22-26); VBG pCO2 43 mmHg; VBG pH 7.59 (7.32-7.43); VBG pO2 37 mmHg
[2023-09-06 05:03] LABS: Basophils Absolute Auto 0.1 X10*3/uL (0.0-0.2); Basophils Percent Auto 0.4 % (0-2); Eosinophils Percent Auto 0.1 % (0-4); Imm Gran Abs Auto 0.19 X10*3/uL (0.00-0.03); Lymphocytes Absolute Auto 4.1 X10*3/uL (1.2-4.9); Lymphocytes Percent Auto 21.7 % (20-40); MANUAL DIFF FLAG SCAN; Mean Corpuscular HGB Conc 29.1 g/dl (31.0-35.0); Mean Corpuscular Hemoglobin 28.3 pg (27.0-33.0); Mean Corpuscular Volume 97.3 fL (80.0-98.0); Mean Platelet Volume 9.7 fL (9.4-12.3); Monocytes Absolute Auto 2.1 X10*3/uL (0.1-1.2); Monocytes Percent Auto 11.1 % (2-11); NRBC Pct Auto 0.6 /100WBC (0.0-0.2); Neutrophils Absolute Auto 12.3 x10*3/uL (2.0-8.3); Neutrophils Percent Auto 65.7 % (45-73); Platelet Count 431 X10*3/uL (160-400); Red Blood Count 2.26 X10*6/uL (4.20-5.50); Red Cell Distribution Width 18.8 % (11.0-16.0); SCAN SMEAR FLAG 1; White Blood Count 18.8 X10*3/uL (4.8-10.8)
[2023-09-06 05:07] LABS: Hemoglobin 6.4 g/dl (12.0-16.0)
[2023-09-06 05:20] LABS: Anion Gap 21 (12-20); Blood Urea Nitrogen 30 mg/dL (9-16); Calcium 10.7 mg/dL (8.4-10.2); Carbon Dioxide 30 mmol/L (22-29); Chloride 93 mmol/L (96-108); Creatinine Clr Calc Pharmacy 35.1; Estimated Glomerular Filt Rate 29; Glucose Random 261 mg/dL (60-115); Magnesium 2.7 mg/dL (1.6-2.6); Phosphorus 5.3 mg/dL (2.7-4.5); Potassium 6.8 mmol/L (3.3-5.1); Sodium 137 mmol/L (135-145)
[2023-09-06] MEDS: Sodium Zirconium Cyclosilicate 10 GM POWD.PACK PO (05:37)
[2023-09-06 05:39] LABS: SLIDE REVIEW VERIFIED
[2023-09-06 05:43] LABS: OBS Int Ctl Valid YES; OBS1 NEGATIVE (NEGATIVE)
[2023-09-06] MEDS: fentaNYL citrate/PF 100 MCG/2 ML VIAL 50 MCG IVPUSH (06:33)
[2023-09-06] MEDS: Albuterol/Iprat 2.5/0.5MG 3 ML AMPUL.NEB INHALE ×4 (07:37→18:47)
[2023-09-06] MEDS: 0.9 % Sodium Chloride Flush 3 ML SYRINGE IVFLUSH ×2 (07:44→15:12)
[2023-09-06] MEDS: Furosemide 40 MG/4 ML VIAL IVPUSH (08:03)
[2023-09-06] MEDS: Famotidine/PF 20 MG/2 ML VIAL IVPUSH (08:06)
[2023-09-06] MEDS: Nystatin Oral Susp 500,000 UNIT/5 ML ORAL.SUSP 100000 UNIT BUCCAL ×3 (08:33→20:26)
[2023-09-06] MEDS: dilTIAZem HCL 60 MG TABLET PO ×2 (08:33→13:32)
[2023-09-06] MEDS: Chlorhexidine Gluc Oral Rinse 15 ML MOUTHWASH BUCCAL ×3 (08:33→20:26)
[2023-09-06] MEDS: Calcitonin,Salmon,Synth Nasal 3.7 ML BOTTLE 1 SPRAY NOSTRIL-B (08:34)
[2023-09-06] MEDS: lamoTRIgine 100 MG TABLET 150 MG PO (08:34)
[2023-09-06] MEDS: busPIRone HCl 10 MG TABLET PO (08:34)
[2023-09-06] MEDS: Acetaminophen 325 MG TABLET 975 MG PO (10:03)
[2023-09-06] MEDS: methADONE HCl 20 MG/2 ML ORAL.CONC 10 MG PO (10:03)
--- NOTE | 2023-09-06 10:38 | P.PNCC_ITS ---
Subjective Subjective Date of Service: 09/06/23 Interval History: 53-year-old lady with underlying morbid obesity, CHITO with hyperventilation syndrome with CO2 retention on supplemental oxygen at 3 L and nocturnal BiPAP, asthma/COPD overlap syndrome, diastolic heart failure, diabetes mellitus, opioid dependence on methadone with multiple admissions for respiratory failure admitted on 08/02/2023 with acute on chronic hypoxic and hypercapnic respiratory failure initially to telemetry michel, however on 08/05/2023 patient with worsening CO2 retention with poor improvement on BiPAP support requiring transfer to the intensive care unit and intubation. Failed extubation 08/11/2023. Now status post tracheostomy/gastrostomy on 08/12/2023. Overnight with worsening renal function and rising potassium, given Lokelma. Critical Care Time (minutes): 60 Physical Exam 2 Vital Signs: Vital Signs: Last Vital Signs Temp 100.5 F H 09/06/23 08:00 Pulse 134 H 09/06/23 09:56 Resp 28 H 09/06/23 09:56 BP 131/89 09/06/23 09:56 Pulse Ox 92 09/06/23 09:56 O2 Del Method Mechanical Ventil ation 09/06/23 09:56 O2 Flow Rate 35 09/05/23 01:00 FiO2 30 09/06/23 09:56 BMI result Body Mass Index 37.9 Const: General: no acute distress and confusion Orientation/consciousness: confusion Eyes: Sclerae: sclerae normal EOM: EOMs intact bilaterally Neck: Neck: Yes no lymphadenopathy, Yes trachea midline, Yes supple and Yes tracheostomy present (On vent) Resp: Auscultation: clear to auscultation bilaterally Cardio: Rate: tachycardic Rhythm: regular rhythm Heart sounds: no gallops, no murmurs and no rubs GI: Inspection: Yes G-tube present Palpation (GI): Soft to palpation and Other GI palpation findings present ( Nontender) Auscultation: normal bowel sounds Neuro: General: confusion Extrem: General: Yes no pedal edema, No clubbing and No cyanosis Objective Data Labs 09/06/23 04:38 09/06/23 04:39 Labs: Laboratory Results - last 24 hr 09/05/23 09/05/23 09/05/23 12:05 17:26 23:49 WBC RBC Hgb Hct MCV MCH MCHC RDW Plt Count MPV Immature Gran % (Auto) Neut % (Auto) Lymph % (Auto) [place] % (Auto) Eos % (Auto) Baso % (Auto) Lymph # (Auto) [place] # (Auto) Eos # (Auto) Baso # (Auto) Abs Immat Gran (auto) Absolute Neuts (auto) Absolute Nucleated RBC Nucleated RBC % (auto) Smear Tech's Comments VBG pH VBG pCO2 VBG pO2 VBG HCO3 VBG O2 Saturation VBG Base Excess Sodium Potassium Chloride Carbon Dioxide Anion Gap BUN Creatinine Estim Creat Clear Calc Estimated GFR POC Glucose 272 H 313 H 344 H Random Glucose Calcium Phosphorus Magnesium Albumin Stool Occult Blood Blood Type Antibody Screen Crossmatch 09/06/23 09/06/23 09/06/23 04:36 04:38 04:39 WBC 18.8 H RBC 2.26 L D Hgb 6.4 L* D Hct 22.0 L D MCV 97.3 MCH 28.3 MCHC 29.1 L RDW 18.8 H Plt Count 431 H MPV 9.7 Immature Gran % (Auto) 1.0 H Neut % (Auto) 65.7 Lymph % (Auto) 21.7 [place] % (Auto) 11.1 H Eos % (Auto) 0.1 Baso % (Auto) 0.4 Lymph # (Auto) 4.1 [place] # (Auto) 2.1 H Eos # (Auto) 0.0 Baso # (Auto) 0.1 Abs Immat Gran (auto) 0.19 H Absolute Neuts (auto) 12.3 H Absolute Nucleated RBC 0.120 H Nucleated RBC % (auto) 0.6 H Smear Tech's Comments VERIFIED VBG pH 7.59 H VBG pCO2 43 VBG pO2 37 VBG HCO3 42 H VBG O2 Saturation 60.0 VBG Base Excess 19.0 Sodium 137 Potassium 6.8 H* D Chloride 93 L Carbon Dioxide 30 H Anion Gap 21 H BUN 30 H Creatinine 1.82 H Estim Creat Clear Calc 35.1 Estimated GFR 29 POC Glucose Random Glucose 261 H Calcium 10.7 H Phosphorus 5.3 H Magnesium 2.7 H Albumin 4.0 Stool Occult Blood Blood Type Antibody Screen Crossmatch 09/06/23 09/06/23 05:15 05:30 WBC RBC Hgb Hct MCV MCH MCHC RDW Plt Count MPV Immature Gran % (Auto) Neut % (Auto) Lymph % (Auto) [place] % (Auto) Eos % (Auto) Baso % (Auto) Lymph # (Auto) [place] # (Auto) Eos # (Auto) Baso # (Auto) Abs Immat Gran (auto) Absolute Neuts (auto) Absolute Nucleated RBC Nucleated RBC % (auto) Smear Tech's Comments VBG pH VBG pCO2 VBG pO2 VBG HCO3 VBG O2 Saturation VBG Base Excess Sodium Potassium Chloride Carbon Dioxide Anion Gap BUN Creatinine Estim Creat Clear Calc Estimated GFR POC Glucose Random Glucose Calcium Phosphorus Magnesium Albumin Stool Occult Blood NEGATIVE Blood Type A Positive Antibody Screen NEGATIVE Crossmatch See Detail Microbiology Microbiology Results: Microbiology 08/26/23 14:13 Blood - Venous Blood Culture - Final No growth after 5 days. 08/26/23 14:13 Blood - Venous Blood Culture - Final No growth after 5 days. 08/26/23 11:25 Tracheal Aspirate Gram Stain - Final 08/26/23 11:25 Tracheal Aspirate Sputum Culture - Final Corynebacterium species 08/22/23 11:35 Neck Gram Stain - Final 08/22/23 11:35 Neck Routine Culture - Final Group F Streptococcus 08/19/23 09:51 Blood - Venous Blood Culture - Final No growth after 5 days. 08/19/23 09:51 Blood - Venous Blood Culture - Final No growth after 5 days. 08/21/23 17:34 Tracheal Aspirate Gram Stain - Final 08/21/23 17:34 Tracheal Aspirate Sputum Culture - Final Corynebacterium species 08/22/23 11:42 Urine Catheterized - Adan Catheter Urine Culture - Final No growth. 08/03/23 16:38 Sputum - Expectorated Gram Stain - Final 08/03/23 16:38 Sputum - Expectorated Sputum Culture - Final Aspergillus fumigatus 08/02/23 14:20 Blood - Venous Blood Culture - Final No growth after 5 days. 08/02/23 13:36 Blood - Venous Blood Culture - Final No growth after 5 days. Progress Note: A&P Assessment and plan (1) VERONIKA (acute kidney injury): Status: Acute (2) Hyperkalemia: Status: Resolved (3) Status post tracheostomy: Status: Acute (4) Status post insertion of percutaneous endoscopic gastrostomy (PEG) tube: Status: Acute (5) Opioid dependence: Status: Acute (6) Type 2 diabetes mellitus: Status: Acute (7) Diastolic heart failure: Status: Acute (8) Intensive care (ICU) myopathy: Status: Acute (9) COPD (chronic obstructive pulmonary disease): Status: Acute (10) Obesity hypoventilation syndrome: Status: Acute Plan Assessment: 53-year-old lady with underlying CHITO with obesity hyperventilation, asthma/COPD, obesity, diastolic heart failure admitted with acute on chronic hypoxic and hypercapnic respiratory failure now requiring ventilatory support. Plan: Neuro: Waxing and waning mental status, continues to improve slowly. Repeat MRI brain with no acute findings. Does have significant anxiety component, continue on BuSpar. Cardiac: No acute issues. Pulmonary: Acute on chronic hypoxic and hypercapnic respiratory failure now requiring ventilatory support. Failed extubation 08/11/2023. Now status post tracheostomy/gastrostomy on 08/12/2023. Continues with improving tolerance of pressor support trials. Continue to titrate off ventilatory support as tolerated. Renal: Acute renal failure with hyperkalemia, now status post Lokelma. Diuretic held. Continue to monitor renal indices and urine output. Endo: No acute issues. Underlying diabetes mellitus. GI: No acute issues. ID: No acute issues Heme/Onc: Upper extremity DVT, continue full-dose Lovenox. Psych: No acute issues. Underlying opioid dependence. Miscellaneous: No acute issues. Prophylaxis: Lovenox, famotidine Diet: Tube feed Critical care time spent: 60 minutes Quality Stroke Does the patient have a stroke diagnosis?: No VTE Prior VTE?: Yes Approximate Date of Prior VTE: 08/27/23 VTE Risk Level:: Medical - moderate - high VTE Device Contraindication: Treatment Not Indicated VTE Drug Contraindication: N/A - Med Ordered
[2023-09-06 11:37] LABS: Glucose, Whole Blood 330 mg/dL (60-115)
[2023-09-06 13:42] LABS: Venous Blood Gas Refer to POC result
[2023-09-06 13:48] LABS: Anion Gap 23 (12-20); Blood Urea Nitrogen 36 mg/dL (9-16); Carbon Dioxide 27 mmol/L (22-29); Chloride 89 mmol/L (96-108); Creatinine Clr Calc Pharmacy 26.1; Estimated Glomerular Filt Rate 21; Sodium 131 mmol/L (135-145)
[2023-09-06 13:56] LABS: Glucose Random 421 mg/dL (60-115); Potassium 7.8 mmol/L (3.3-5.1)
[2023-09-06 14:18] LABS: Glucose, Whole Blood 390 mg/dL (60-115)
[2023-09-06 14:19] LABS: ABG Base Excess 7.7 mmol/L; ABG HCO3 32 mmol/L (22-26); ABG pCO2 46 mmHg (32-45); ABG pH 7.45 (7.35-7.45); ABG pO2 59 mmHg (83-108)
[2023-09-06] MEDS: propofoL 1,000 MG/100 ML VIAL 10.57 MG IVCONT (14:33)
--- NOTE | 2023-09-06 15:10 | W.PM.CCHP ---
Procedures Date of Service Date of Service: 09/06/23 Central Line Placement Right IJ: Central Line Comments: After obtaining informed consent right internal jugular triple-lumen hemodialysis catheter placed for emergent hemodialysis under ultrasound guidance and usual sterile conditions with no immediate complications. Chest x-ray is pending for line position.
[2023-09-06] MEDS: Cisatracurium Besylate 20 MG/10 ML VIAL IVPUSH (17:18)
[2023-09-06] MEDS: Norepinephrine Bitartrate/D5W 8 MG/250 ML PLAST..BAG 8.26 MG IV (17:37)
[2023-09-06 17:41] LABS: Glucose, Whole Blood 295 mg/dL (60-115)
[2023-09-06 18:03] LABS: Hemoglobin 7.3 g/dl (12.0-16.0); Mean Corpuscular HGB Conc 31.7 g/dl (31.0-35.0); Mean Corpuscular Hemoglobin 31.7 pg (27.0-33.0); Mean Platelet Volume 9.7 fL (9.4-12.3); Platelet Count 439 X10*3/uL (160-400); Red Cell Distribution Width 18.6 % (11.0-16.0)
[2023-09-06 18:20] LABS: NRBC Pct Auto 4.4 /100WBC (0.0-0.2)
[2023-09-06 18:23] LABS: White Blood Count 37.6 X10*3/uL (4.8-10.8)
--- NOTE | 2023-09-06 19:14 | PC.NURSE ---
Assumed care of patient 0700 notified of K+ 6.8, lokelma given on previous shift. Plan for Lasix 40 IVP, no new orders. 1 unit RBC transfused for low H+H 6.4/22.0 Pt up to Quispe recliner chair 11:00, tolerating well 13:40 new monitoring engineer rhythm changes: ST with peak T waves. New order for EKG. Pt returned to bed after EKG obtained. repeat BMP checked. Potassium increased to 7.8. New order for ABG. MD contacted patient HCP via phone for consent for dialysis and insertion of Maurkar catheter. Propofol started @20 mcg/kg/min Time out for Mahurkar catheter insertion 14:48. Insertion started 15:03. Pt tolerated procedure well. CXR done to confirm placement. 17:00 dialysis started. infant room teacher had difficulty with catheter flow due to pressure changes with respiration. Pt had increased respiratory effort with RR 35-41. Pt had very dim lung matthews on right side. RT to bedside, pt manually ambu bagged and suctioned. No improvement to RR and work of breath. MD notified. Additional CXR stat done, negative for pneumothorax. New orders for 20 Nimbex IVP given for tolerance of dialysis session. Dose was immediately effective, RR 16 equal to vent settings of PC 16/28/6.0/50%. Dialysis session was able to run. Levophed gtt started during dialysis and titrated up per protocol to 0.23 mcg/kg/min for MAP goal >65. This information communicated in RN to RN report.
[2023-09-06] MEDS: propofoL 1,000 MG/100 ML VIAL 21.14 MG IVCONT (19:28)
[2023-09-06] MEDS: vancomycin/NS 2,000 MG/500 ML PLAST..BAG 250 MG IV (20:14)
[2023-09-06 20:21] LABS: VBG Base Excess 9.4 mmol/L; VBG HCO3 35 mmol/L (22-26); VBG pCO2 54 mmHg; VBG pH 7.41 (7.32-7.43); VBG pO2 42 mmHg
[2023-09-06 20:29] LABS: Mean Corpuscular HGB Conc 32.3 g/dl (31.0-35.0); Mean Platelet Volume 9.6 fL (9.4-12.3); Platelet Count 345 X10*3/uL (160-400); Red Cell Distribution Width 18.9 % (11.0-16.0)
[2023-09-06 20:36] LABS: Venous Blood Gas Refer to POC result
[2023-09-06 20:40] LABS: Hematocrit 19.8 % (37.0-47.0); Hemoglobin 6.4 g/dl (12.0-16.0); NRBC Pct Auto 3.8 /100WBC (0.0-0.2)
[2023-09-06 20:45] LABS: Lactic Acid 1.8 mmol/L (0.5-2.0)
[2023-09-06 20:50] LABS: Anion Gap 15 (12-20); Blood Urea Nitrogen 23 mg/dL (9-16); Calcium 8.9 mg/dL (8.4-10.2); Carbon Dioxide 29 mmol/L (22-29); Chloride 96 mmol/L (96-108); Creatinine Clr Calc Pharmacy 42.2; Estimated Glomerular Filt Rate 36; Glucose Random 285 mg/dL (60-115); Magnesium 2.2 mg/dL (1.6-2.6); Phosphorus 4.6 mg/dL (2.7-4.5); Sodium 135 mmol/L (135-145)
[2023-09-06 21:35] LABS: SLIDE REVIEW MANUAL DIFF
[2023-09-06 21:45] LABS: Band Neutrophils Percent 6 % (3-5); Lymphocytes Absolute Manual 3.3 X10*3/uL (1.2-4.9); Lymphocytes Percent Manual 10 % (20-40); Metamyelocytes Absolute 0.7 X10*3/uL; Metamyelocytes Percent 2 %; Monocytes Absolute Manual 2.3 X10*3/uL (0.1-1.2); Monocytes Percent Manual 7 % (2-11); Myelocytes Absolute 0.3 X10*/uL; Myelocytes Percent 1 %; Neutrophils Absolute Manual 26.4 X10*3/uL (2.0-8.3); Neutrophils Percent Manual 74 % (45-73)
[2023-09-06 21:50] LABS: Platelet Estimate NORMAL (NORMAL); Platelet Morphology Comment NORMAL; RBC Morphology NORMAL
[2023-09-06] MEDS: Piperacillin Sodium/Tazobactam 3.375 GM in 0.9 % Sodium Chloride 50 ML IV (22:02)
[2023-09-06 22:20] LABS: ABG Refer to POC result
[2023-09-06 23:59] LABS: Glucose, Whole Blood 324 mg/dL (60-115)
[2023-09-07] VITALS (65 sets, daily range): BP systolic 79–140; BP diastolic 44–86; PULSE 101–138; RESP 16–31; TEMP 34.7–38.3; O2SAT 90–99; BMI 40.0
[2023-09-07] MEDS: Insulin Lispro 100 UNIT/ML 3 ML VIAL SUBCUT ×7 (00:06→17:18)
[2023-09-07] MEDS: Norepinephrine Bitartrate/D5W 8 MG/250 ML PLAST..BAG 31.39 MG IV (00:08)
[2023-09-07] MEDS: Albuterol/Iprat 2.5/0.5MG 3 ML AMPUL.NEB INHALE ×5 (00:50→19:25)
[2023-09-07] MEDS: propofoL 1,000 MG/100 ML VIAL 15.86 MG IVCONT ×2 (01:30→06:14)
[2023-09-07] MEDS: Metoprolol Tartrate 10 MG in 0.9 % Sodium Chloride 50 ML 240 MG IV ×3 (01:33→15:25)
[2023-09-07] MEDS: Acetaminophen 1,000 MG/100 ML PIGGYBACK 400 MG IV (02:07)
[2023-09-07 04:39] LABS: VBG Base Excess 9.6 mmol/L; VBG HCO3 33 mmol/L (22-26); VBG pCO2 40 mmHg; VBG pH 7.52 (7.32-7.43); VBG pO2 37 mmHg
[2023-09-07 04:46] LABS: Basophils Absolute Auto 0.1 X10*3/uL (0.0-0.2); Basophils Percent Auto 0.4 % (0-2); Eosinophils Percent Auto 0.1 % (0-4); Hematocrit 22.7 % (37.0-47.0); Hemoglobin 7.1 g/dl (12.0-16.0); Imm Gran Abs Auto 0.73 X10*3/uL (0.00-0.03); Imm Gran Pct Auto 2.9 % (0.0-0.4); Lymphocytes Absolute Auto 3.4 X10*3/uL (1.2-4.9); Lymphocytes Percent Auto 13.2 % (20-40); MANUAL DIFF FLAG SCAN; Mean Corpuscular HGB Conc 31.3 g/dl (31.0-35.0); Mean Corpuscular Volume 99.1 fL (80.0-98.0); Mean Platelet Volume 9.9 fL (9.4-12.3); Monocytes Absolute Auto 2.8 X10*3/uL (0.1-1.2); Neutrophils Absolute Auto 18.5 x10*3/uL (2.0-8.3); Neutrophils Percent Auto 72.4 % (45-73); Platelet Count 334 X10*3/uL (160-400); Red Blood Count 2.29 X10*6/uL (4.20-5.50); Red Cell Distribution Width 18.4 % (11.0-16.0); SCAN SMEAR FLAG 1; White Blood Count 25.5 X10*3/uL (4.8-10.8)
[2023-09-07 04:49] LABS: NRBC Pct Auto 5.3 /100WBC (0.0-0.2)
[2023-09-07 05:17] LABS: Anion Gap 18 (12-20); Blood Urea Nitrogen 30 mg/dL (9-16); Calcium 8.8 mg/dL (8.4-10.2); Carbon Dioxide 24 mmol/L (22-29); Chloride 96 mmol/L (96-108); Estimated Glomerular Filt Rate 24; Glucose Random 311 mg/dL (60-115); Magnesium 2.4 mg/dL (1.6-2.6); Phosphorus 3.4 mg/dL (2.7-4.5); Sodium 132 mmol/L (135-145)
[2023-09-07 05:22] LABS: Venous Blood Gas Refer to POC result
[2023-09-07 05:34] LABS: SLIDE REVIEW VERIFIED
[2023-09-07] MEDS: Albumin Human 25 % 100 ML IV ×2 (07:38→13:04)
[2023-09-07] MEDS: 0.9 % Sodium Chloride Flush 3 ML SYRINGE IVFLUSH ×2 (07:54→15:24)
[2023-09-07] MEDS: Nystatin Oral Susp 500,000 UNIT/5 ML ORAL.SUSP 100000 UNIT BUCCAL ×3 (08:44→21:18)
[2023-09-07] MEDS: busPIRone HCl 10 MG TABLET PO ×2 (08:44→21:17)
[2023-09-07] MEDS: Chlorhexidine Gluc Oral Rinse 15 ML MOUTHWASH BUCCAL ×3 (08:44→21:18)
[2023-09-07] MEDS: Calcitonin,Salmon,Synth Nasal 3.7 ML BOTTLE 1 SPRAY NOSTRIL-B (08:44)
[2023-09-07] MEDS: lamoTRIgine 100 MG TABLET 150 MG PO ×2 (08:44→21:18)
[2023-09-07] MEDS: dilTIAZem HCL 60 MG TABLET PO ×4 (08:45→21:17)
[2023-09-07] MEDS: methADONE HCl 20 MG/2 ML ORAL.CONC 10 MG PO (08:47)
--- NOTE | 2023-09-07 10:08 | PM.CCPN ---
Subjective Subjective Date of Service: 09/07/23 Interval History: 53-year-old lady with underlying morbid obesity, CHITO with hyperventilation syndrome with CO2 retention on supplemental oxygen at 3 L and nocturnal BiPAP, asthma/COPD overlap syndrome, diastolic heart failure, diabetes mellitus, opioid dependence on methadone with multiple admissions for respiratory failure admitted on 08/02/2023 with acute on chronic hypoxic and hypercapnic respiratory failure initially to telemetry michel, however on 08/05/2023 patient with worsening CO2 retention with poor improvement on BiPAP support requiring transfer to the intensive care unit and intubation. Failed extubation 08/11/2023. Now status post tracheostomy/gastrostomy on 08/12/2023. On 09/06/2023 with rapidly worsening renal function hyperkalemia requiring initiation of hemodialysis. Lovenox stopped. Overnight with development of left flank large bruising/hematoma. Critical Care Time (minutes): 60 Physical Exam Vital Signs: Vital Signs: Last Vital Signs Temp 97.7 F 09/07/23 08:00 Pulse 121 H 09/07/23 09:00 Resp 20 09/07/23 09:00 BP 101/59 L 09/07/23 09:00 Pulse Ox 98 09/07/23 09:00 O2 Del Method Mechanical Ventil ation 09/07/23 09:00 O2 Flow Rate 30 09/06/23 16:57 FiO2 30 09/07/23 09:00 BMI result Body Mass Index 40.0 Const: General: no acute distress and other (Sedated on the vent) Nutritional Appearance: obese Eyes: Sclerae: sclerae normal EOM: EOMs intact bilaterally Neck: Neck: Yes no lymphadenopathy, Yes trachea midline, Yes supple and Yes tracheostomy present (On vent) Resp: Auscultation: clear to auscultation bilaterally Cardio: Rate: tachycardic Rhythm: regular rhythm Heart sounds: no gallops, no murmurs and no rubs GI: Other: Left lung bruise/hematoma Inspection: Yes G-tube present Palpation (GI): Soft to palpation and Other GI palpation findings present ( Nontender) Auscultation: normal bowel sounds Extrem: General: Yes no pedal edema, No clubbing and No cyanosis Objective Data Labs 09/07/23 04:32 09/07/23 04:32 Labs: Laboratory Results - last 24 hr 09/06/23 09/06/2324 05:30 11:32 13:11 WBC RBC Hgb Hct MCV MCH MCHC RDW Plt Count MPV Immature Gran % (Auto) Neut % (Auto) Lymph % (Auto) [place] % (Auto) Eos % (Auto) Baso % (Auto) Lymph # (Auto) [place] # (Auto) Eos # (Auto) Baso # (Auto) Abs Immat Gran (auto) Absolute Neuts (auto) Absolute Nucleated RBC Nucleated RBC % (auto) Neutrophils % (Manual) Band Neutrophils % Lymphocytes % (Manual) Monocytes % (Manual) Metamyelocytes % Myelocytes % Abs Neuts (Manual) Lymphocytes # (Manual) Monocytes # (Manual) Metamyelocytes # Myelocytes # Platelet Estimate Plt Morphology Comment RBC Morphology Smear Tech's Comments O2 Saturation ABG pH at Pt Temp ABG pCO2 at Pt Temp ABG pO2 at Pt Temp ABG HCO3 ABG Base Excess (Actual) VBG pH VBG pCO2 VBG pO2 VBG HCO3 VBG O2 Saturation VBG Base Excess Sodium 131 L Potassium 7.8 H* Chloride 89 L Carbon Dioxide 27 Anion Gap 23 H BUN 36 H Creatinine 2.46 H Estim Creat Clear Calc 26.1 Estimated GFR 21 POC Glucose 330 H Random Glucose 421 H* Lactic Acid Calcium 10.0 D Phosphorus Magnesium Albumin Blood Type A Positive Antibody Screen NEGATIVE Crossmatch See Detail 09/06/23 09/06/23 09/06/23 14:11 14:13 17:37 WBC RBC Hgb Hct MCV MCH MCHC RDW Plt Count MPV Immature Gran % (Auto) Neut % (Auto) Lymph % (Auto) [place] % (Auto) Eos % (Auto) Baso % (Auto) Lymph # (Auto) [place] # (Auto) Eos # (Auto) Baso # (Auto) Abs Immat Gran (auto) Absolute Neuts (auto) Absolute Nucleated RBC Nucleated RBC % (auto) Neutrophils % (Manual) Band Neutrophils % Lymphocytes % (Manual) Monocytes % (Manual) Metamyelocytes % Myelocytes % Abs Neuts (Manual) Lymphocytes # (Manual) Monocytes # (Manual) Metamyelocytes # Myelocytes # Platelet Estimate Plt Morphology Comment RBC Morphology Smear Tech's Comments O2 Saturation 88.0 ABG pH at Pt Temp 7.45 ABG pCO2 at Pt Temp 46 H ABG pO2 at Pt Temp 59 L ABG HCO3 32 H ABG Base Excess (Actual) 7.7 VBG pH VBG pCO2 VBG pO2 VBG HCO3 VBG O2 Saturation VBG Base Excess Sodium Potassium Chloride Carbon Dioxide Anion Gap BUN Creatinine Estim Creat Clear Calc Estimated GFR POC Glucose 390 H* 295 H Random Glucose Lactic Acid Calcium Phosphorus Magnesium Albumin Blood Type Antibody Screen Crossmatch 09/06/23 09/06/23 09/06/23 17:56 20:12 20:19 WBC 37.6 H* RBC 2.30 L Hgb 7.3 L Hct 23.0 L MCV 100.0 H MCH 31.7 MCHC 31.7 RDW 18.6 H Plt Count 439 H MPV 9.7 Immature Gran % (Auto) Neut % (Auto) Lymph % (Auto) [place] % (Auto) Eos % (Auto) Baso % (Auto) Lymph # (Auto) [place] # (Auto) Eos # (Auto) Baso # (Auto) Abs Immat Gran (auto) Absolute Neuts (auto) Absolute Nucleated RBC 1.660 H Nucleated RBC % (auto) 4.4 H Neutrophils % (Manual) Band Neutrophils % Lymphocytes % (Manual) Monocytes % (Manual) Metamyelocytes % Myelocytes % Abs Neuts (Manual) Lymphocytes # (Manual) Monocytes # (Manual) Metamyelocytes # Myelocytes # Platelet Estimate Plt Morphology Comment RBC Morphology Smear Tech's Comments O2 Saturation ABG pH at Pt Temp ABG pCO2 at Pt Temp ABG pO2 at Pt Temp ABG HCO3 ABG Base Excess (Actual) VBG pH 7.41 VBG pCO2 54 VBG pO2 42 VBG HCO3 35 H VBG O2 Saturation 68.0 VBG Base Excess 9.4 Sodium Potassium Chloride Carbon Dioxide Anion Gap BUN Creatinine Estim Creat Clear Calc Estimated GFR POC Glucose Random Glucose Lactic Acid 1.8 Calcium Phosphorus Magnesium Albumin Blood Type Antibody Screen Crossmatch 09/06/23 09/06/23 09/07/23 20:20 23:53 04:30 WBC 33.0 H* RBC 2.00 L Hgb 6.4 L* Hct 19.8 L* MCV 99.0 H MCH 32.0 MCHC 32.3 RDW 18.9 H Plt Count 345 MPV 9.6 Immature Gran % (Auto) Cancelled Neut % (Auto) Cancelled Lymph % (Auto) Cancelled [place] % (Auto) Cancelled Eos % (Auto) Cancelled Baso % (Auto) Cancelled Lymph # (Auto) Cancelled [place] # (Auto) Cancelled Eos # (Auto) Cancelled Baso # (Auto) Cancelled Abs Immat Gran (auto) Cancelled Absolute Neuts (auto) Cancelled Absolute Nucleated RBC 1.260 H Nucleated RBC % (auto) 3.8 H Neutrophils % (Manual) 74 H Band Neutrophils % 6 H Lymphocytes % (Manual) 10 L Monocytes % (Manual) 7 Metamyelocytes % 2 Myelocytes % 1 Abs Neuts (Manual) 26.4 H Lymphocytes # (Manual) 3.3 Monocytes # (Manual) 2.3 H Metamyelocytes # 0.7 Myelocytes # 0.3 Platelet Estimate NORMAL Plt Morphology Comment NORMAL RBC Morphology NORMAL Smear Tech's Comments MANUAL DIFF O2 Saturation ABG pH at Pt Temp ABG pCO2 at Pt Temp ABG pO2 at Pt Temp ABG HCO3 ABG Base Excess (Actual) VBG pH 7.52 H VBG pCO2 40 VBG pO2 37 VBG HCO3 33 H VBG O2 Saturation 67.0 VBG Base Excess 9.6 Sodium 135 Potassium 5.0 D Chloride 96 Carbon Dioxide 29 Anion Gap 15 BUN 23 H Creatinine 1.52 H Estim Creat Clear Calc 42.2 Estimated GFR 36 POC Glucose 324 H Random Glucose 285 H Lactic Acid Calcium 8.9 D Phosphorus 4.6 H Magnesium 2.2 Albumin Blood Type Antibody Screen Crossmatch 09/07/23 04:32 WBC 25.5 H RBC 2.29 L Hgb 7.1 L Hct 22.7 L MCV 99.1 H MCH 31.0 MCHC 31.3 RDW 18.4 H Plt Count 334 MPV 9.9 Immature Gran % (Auto) 2.9 H Neut % (Auto) 72.4 Lymph % (Auto) 13.2 L [place] % (Auto) 11.0 Eos % (Auto) 0.1 Baso % (Auto) 0.4 Lymph # (Auto) 3.4 [place] # (Auto) 2.8 H Eos # (Auto) 0.0 Baso # (Auto) 0.1 Abs Immat Gran (auto) 0.73 H Absolute Neuts (auto) 18.5 H Absolute Nucleated RBC 1.350 H Nucleated RBC % (auto) 5.3 H Neutrophils % (Manual) Band Neutrophils % Lymphocytes % (Manual) Monocytes % (Manual) Metamyelocytes % Myelocytes % Abs Neuts (Manual) Lymphocytes # (Manual) Monocytes # (Manual) Metamyelocytes # Myelocytes # Platelet Estimate Plt Morphology Comment RBC Morphology Smear Tech's Comments VERIFIED O2 Saturation ABG pH at Pt Temp ABG pCO2 at Pt Temp ABG pO2 at Pt Temp ABG HCO3 ABG Base Excess (Actual) VBG pH VBG pCO2 VBG pO2 VBG HCO3 VBG O2 Saturation VBG Base Excess Sodium 132 L Potassium 6.0 H* Chloride 96 Carbon Dioxide 24 Anion Gap 18 BUN 30 H Creatinine 2.14 H Estim Creat Clear Calc 30.0 Estimated GFR 24 POC Glucose Random Glucose 311 H Lactic Acid Calcium 8.8 Phosphorus 3.4 Magnesium 2.4 Albumin 3.0 L Blood Type Antibody Screen Crossmatch Microbiology Microbiology Results: Microbiology 08/26/23 14:13 Blood - Venous Blood Culture - Final No growth after 5 days. 08/26/23 14:13 Blood - Venous Blood Culture - Final No growth after 5 days. 08/26/23 11:25 Tracheal Aspirate Gram Stain - Final 08/26/23 11:25 Tracheal Aspirate Sputum Culture - Final Corynebacterium species 08/22/23 11:35 Neck Gram Stain - Final 08/22/23 11:35 Neck Routine Culture - Final Group F Streptococcus 08/19/23 09:51 Blood - Venous Blood Culture - Final No growth after 5 days. 08/19/23 09:51 Blood - Venous Blood Culture - Final No growth after 5 days. 08/21/23 17:34 Tracheal Aspirate Gram Stain - Final 08/21/23 17:34 Tracheal Aspirate Sputum Culture - Final Corynebacterium species 08/22/23 11:42 Urine Catheterized - Adan Catheter Urine Culture - Final No growth. 08/03/23 16:38 Sputum - Expectorated Gram Stain - Final 08/03/23 16:38 Sputum - Expectorated Sputum Culture - Final Aspergillus fumigatus 08/02/23 14:20 Blood - Venous Blood Culture - Final No growth after 5 days. 08/02/23 13:36 Blood - Venous Blood Culture - Final No growth after 5 days. Progress Note: A&P Assessment and plan (1) VERONIKA (acute kidney injury): Status: Acute (2) Status post tracheostomy: Status: Acute (3) Status post insertion of percutaneous endoscopic gastrostomy (PEG) tube: Status: Acute (4) Opioid dependence: Status: Acute (5) Type 2 diabetes mellitus: Status: Acute (6) Diastolic heart failure: Status: Acute (7) Intensive care (ICU) myopathy: Status: Acute (8) Obesity hypoventilation syndrome: Status: Acute (9) COPD (chronic obstructive pulmonary disease): Status: Acute Plan Assessment: 53-year-old lady with underlying CHITO with obesity hyperventilation, asthma/COPD, obesity, diastolic heart failure admitted with acute on chronic hypoxic and hypercapnic respiratory failure now status post tracheostomy requiring ventilatory support. Plan: Neuro: No acute issues. Cardiac: Distributive shock, continue to titrate off pressor support as tolerated. Pulmonary: Acute on chronic hypoxic and hypercapnic respiratory failure now requiring ventilatory support. Failed extubation 08/11/2023. Now status post tracheostomy/gastrostomy on 08/12/2023. Continue to titrate off ventilatory support as tolerated. Renal: Acute renal failure with hyperkalemia, requiring initiation of hemodialysis. Nephrology service care appreciated. Endo: No acute issues. Underlying diabetes mellitus. GI: No acute issues. ID: No acute issues Heme/Onc: Upper extremity DVT, previously on Lovenox, now Lovenox stopped secondary to development acute anemia and left flank bruising. Will obtain CT abdomen/pelvis. Psych: No acute issues. Underlying opioid dependence. Miscellaneous: No acute issues. Prophylaxis: Heparin Diet: Tube feed Critical care time spent: 60 minutes Quality Stroke Does the patient have a stroke diagnosis?: No VTE Prior VTE?: Yes Approximate Date of Prior VTE: 08/27/23 VTE Risk Level:: Medical - moderate - high VTE Device Contraindication: Treatment Not Indicated VTE Drug Contraindication: N/A - Med Ordered
[2023-09-07] MEDS: Norepinephrine Bitartrate/D5W 8 MG/250 ML PLAST..BAG 21.47 MG IV (10:22)
--- NOTE | 2023-09-07 10:43 | PC.NURSE ---
Tube feed drainage around PEG tube site - saturated approx 2 drainage sponges, residual 175 cc; faint bowel sounds all four quadrants; abd large, firm and distended; last BM 09/04. Dr Geller notified - tube feeds held per MD at 1000. Large purple bruise noted to left flank - MD notified and at bedside. Plan for abd CT at 1130.
[2023-09-07] MEDS: propofoL 1,000 MG/100 ML VIAL 21.14 MG IVCONT (11:15)
[2023-09-07 11:28] LABS: Glucose, Whole Blood 276 mg/dL (60-115)
[2023-09-07] MEDS: propofoL 1,000 MG/100 ML VIAL 26.43 MG IVCONT ×3 (14:47→21:39)
[2023-09-07] MEDS: Cisatracurium Besylate 20 MG/10 ML VIAL IVPUSH (15:20)
[2023-09-07 17:19] LABS: Glucose, Whole Blood 215 mg/dL (60-115)
[2023-09-07] MEDS: Norepinephrine Bitartrate/D5W 8 MG/250 ML PLAST..BAG 64.42 MG IV (17:47)
[2023-09-07 20:02] LABS: Basophils Absolute Auto 0.1 X10*3/uL (0.0-0.2); Basophils Percent Auto 0.4 % (0-2); Eosinophils Absolute Auto 0.1 X10*3/uL (0.0-0.4); Eosinophils Percent Auto 0.3 % (0-4); Imm Gran Abs Auto 1.15 X10*3/uL (0.00-0.03); Imm Gran Pct Auto 4.2 % (0.0-0.4); Lymphocytes Absolute Auto 3.8 X10*3/uL (1.2-4.9); Lymphocytes Percent Auto 13.8 % (20-40); MANUAL DIFF FLAG SCAN; Mean Corpuscular HGB Conc 32.8 g/dl (31.0-35.0); Mean Corpuscular Hemoglobin 32.9 pg (27.0-33.0); Mean Corpuscular Volume 100.6 fL (80.0-98.0); Mean Platelet Volume 9.9 fL (9.4-12.3); Monocytes Absolute Auto 3.2 X10*3/uL (0.1-1.2); Monocytes Percent Auto 11.6 % (2-11); Neutrophils Absolute Auto 19.1 x10*3/uL (2.0-8.3); Neutrophils Percent Auto 69.7 % (45-73); Platelet Count 328 X10*3/uL (160-400); Red Blood Count 1.73 X10*6/uL (4.20-5.50); Red Cell Distribution Width 18.3 % (11.0-16.0); SCAN SMEAR FLAG 1; White Blood Count 27.4 X10*3/uL (4.8-10.8)
[2023-09-07 20:10] LABS: NRBC Pct Auto 4.4 /100WBC (0.0-0.2)
[2023-09-07 20:14] LABS: Hematocrit 17.4 % (37.0-47.0); Hemoglobin 5.7 g/dl (12.0-16.0)
[2023-09-07 20:25] LABS: Albumin Level 3.6 g/dL (3.5-5.0); Anion Gap 20 (12-20); Blood Urea Nitrogen 18 mg/dL (9-16); Calcium 8.6 mg/dL (8.4-10.2); Carbon Dioxide 19 mmol/L (22-29); Chloride 98 mmol/L (96-108); Creatinine Clr Calc Pharmacy 41.1; Estimated Glomerular Filt Rate 33; Glucose Random 265 mg/dL (60-115); Magnesium 2.1 mg/dL (1.6-2.6); Phosphorus 2.8 mg/dL (2.7-4.5); Potassium 4.8 mmol/L (3.3-5.1); Sodium 132 mmol/L (135-145)
[2023-09-07] MEDS: Calcium Gluconate/NaCl,Iso-Osm 1 GM/50 ML PLAST..BAG IV (21:08)
[2023-09-07] MEDS: Norepinephrine Bitartrate/D5W 8 MG/250 ML PLAST..BAG 54.51 MG IV (21:41)
[2023-09-07 21:46] LABS: SLIDE REVIEW VERIFIED
[2023-09-08] VITALS (56 sets, daily range): BP systolic 90–143; BP diastolic 50–78; PULSE 1–117; RESP 11–22; TEMP 34.5–39.5; O2SAT 93–98; BMI 39.2
[2023-09-08 00:03] LABS: Glucose, Whole Blood 319 mg/dL (60-115)
[2023-09-08] MEDS: Insulin Lispro 100 UNIT/ML 3 ML VIAL SUBCUT ×8 (00:16→18:10)
[2023-09-08] MEDS: 0.9 % Sodium Chloride Flush 3 ML SYRINGE IVFLUSH ×3 (00:16→15:02)
[2023-09-08] MEDS: propofoL 1,000 MG/100 ML VIAL 21.14 MG IVCONT ×2 (01:23→04:17)
[2023-09-08] MEDS: LORazepam 2 MG/ML VIAL IVPUSH ×3 (01:40→15:56)
[2023-09-08] MEDS: Norepinephrine Bitartrate/D5W 8 MG/250 ML PLAST..BAG 37.99 MG IV (02:10)
[2023-09-08] MEDS: Midazolam HCl/PF 2 MG/2 ML VIAL IVPUSH (02:32)
[2023-09-08 04:59] LABS: VBG Base Excess -1.6 mmol/L; VBG HCO3 23 mmol/L (22-26); VBG pCO2 38 mmHg; VBG pH 7.38 (7.32-7.43); VBG pO2 37 mmHg
[2023-09-08 05:25] LABS: Basophils Absolute Auto 0.1 X10*3/uL (0.0-0.2); Basophils Percent Auto 0.6 % (0-2); Eosinophils Absolute Auto 0.1 X10*3/uL (0.0-0.4); Eosinophils Percent Auto 0.4 % (0-4); Hematocrit 23.2 % (37.0-47.0); Hemoglobin 7.9 g/dl (12.0-16.0); Imm Gran Abs Auto 0.86 X10*3/uL (0.00-0.03); Lymphocytes Absolute Auto 2.7 X10*3/uL (1.2-4.9); Lymphocytes Percent Auto 12.8 % (20-40); MANUAL DIFF FLAG SCAN; Mean Corpuscular HGB Conc 34.1 g/dl (31.0-35.0); Mean Corpuscular Hemoglobin 32.6 pg (27.0-33.0); Mean Corpuscular Volume 95.9 fL (80.0-98.0); Mean Platelet Volume 9.7 fL (9.4-12.3); Monocytes Percent Auto 9.5 % (2-11); Neutrophils Absolute Auto 15.5 x10*3/uL (2.0-8.3); Neutrophils Percent Auto 72.7 % (45-73); Platelet Count 307 X10*3/uL (160-400); Red Blood Count 2.42 X10*6/uL (4.20-5.50); SCAN SMEAR FLAG 1; White Blood Count 21.4 X10*3/uL (4.8-10.8)
[2023-09-08 05:45] LABS: SLIDE REVIEW VERIFIED
[2023-09-08 05:48] LABS: Alanine Aminotransferase 178 U/L (0-31); Albumin Level 3.4 g/dL (3.5-5.0); Alkaline Phosphatase 66 U/L (39-117); Anion Gap 20 (12-20); Aspartate Amino Transferase 793 U/L (5-31); Bilirubin Total 2.9 mg/dL (0.0-1.0); Blood Urea Nitrogen 25 mg/dL (9-16); Calcium 8.8 mg/dL (8.4-10.2); Carbon Dioxide 19 mmol/L (22-29); Chloride 95 mmol/L (96-108); Creatinine Clr Calc Pharmacy 29.2; Estimated Glomerular Filt Rate 23; Glucose Random 326 mg/dL (60-115); Magnesium 2.2 mg/dL (1.6-2.6); Potassium 5.2 mmol/L (3.3-5.1); Sodium 129 mmol/L (135-145)
[2023-09-08 06:15] LABS: Venous Blood Gas Refer to POC result
[2023-09-08 06:15] LABS: Glucose, Whole Blood 330 mg/dL (60-115)
--- NOTE | 2023-09-08 06:44 | PC.NURSE ---
Approx. 0130 pt tachypneic RR 30-40s, lungs dim throughout, sating >92%. Pt restless, jerking movements, left pupil 3mm sluggish, right pupil 2mm sluggish. Shaniqua Sabillon LOT BOSS to bedside. PRN 2mg IVP Ativan given for restlessness with good effect. Pt brought for stat Head CT- see report.
[2023-09-08] MEDS: Albuterol/Iprat 2.5/0.5MG 3 ML AMPUL.NEB INHALE ×4 (07:38→20:08)
[2023-09-08] MEDS: methADONE HCl 20 MG/2 ML ORAL.CONC 10 MG PO (08:00)
[2023-09-08] MEDS: lamoTRIgine 100 MG TABLET 150 MG PO ×2 (08:00→20:00)
[2023-09-08] MEDS: dilTIAZem HCL 60 MG TABLET PO (08:00)
[2023-09-08] MEDS: Nystatin Oral Susp 500,000 UNIT/5 ML ORAL.SUSP 100000 UNIT BUCCAL ×3 (08:01→20:00)
[2023-09-08] MEDS: busPIRone HCl 10 MG TABLET PO ×2 (08:01→20:00)
[2023-09-08] MEDS: Calcitonin,Salmon,Synth Nasal 3.7 ML BOTTLE 1 SPRAY NOSTRIL-B (08:01)
[2023-09-08] MEDS: Chlorhexidine Gluc Oral Rinse 15 ML MOUTHWASH BUCCAL ×3 (08:01→20:01)
[2023-09-08] MEDS: propofoL 1,000 MG/100 ML VIAL 26.43 MG IVCONT (08:05)
[2023-09-08 08:35] LABS: HBS Num1 > 1000.00 mIU/mL (0-7.99); HBc Num1 1.61 S/CO (0.00-0.79); HBsAGNum1 0.57 S/CO (0.00-0.99); Hepatitis B Surface Antigen Negative (Negative); ~Hepatitis B Surface Antibody REACTIVE (Nonreactive)
--- NOTE | 2023-09-08 08:51 | PM.CCPN ---
Subjective Subjective Date of Service: 09/08/23 Critical Care Time (minutes): 40 Comment: On ventilator support this morning Physical Exam Vital Signs: Vital Signs: Last Vital Signs Temp 100.0 F 09/08/23 07:57 Pulse 117 H 09/08/23 08:40 Resp 20 09/08/23 07:57 BP 104/59 L 09/08/23 08:40 Pulse Ox 96 09/08/23 07:57 O2 Del Method Mechanical Ventil ation 09/08/23 07:57 O2 Flow Rate 30 09/06/23 16:57 FiO2 30 09/08/23 07:57 BMI result Body Mass Index 39.2 General: acute distress and tired appearing Nutritional Appearance: well nourished and overweight Eyes: appearance normal, both eyes and all related structures; Alignment and Position: alignment normal and position normal Neck: No lymphadenopathy, no thyromegaly Resp: bilateral air entry equal, occasional added sounds present Cardio: Regular rate, regular rhythm; Heart sounds: S1 normal heart sound present and S2 normal heart sound present GI: soft, nontender, no guarding, no hepatosplenomegaly : bladder normal to inspection, bladder normal to palpation, no renal angle tenderness Skin: no rashes or lesions noted and elasticity normal Neuro: Confused, No focal deficits Objective Data Labs 09/08/23 04:50 09/08/23 04:50 Labs: Laboratory Results - last 24 hr 09/06/23 09/06/23 09/07/23 05:30 17:56 11:22 WBC RBC Hgb Hct MCV MCH MCHC RDW Plt Count MPV Immature Gran % (Auto) Neut % (Auto) Lymph % (Auto) [place] % (Auto) Eos % (Auto) Baso % (Auto) Lymph # (Auto) [place] # (Auto) Eos # (Auto) Baso # (Auto) Abs Immat Gran (auto) Absolute Neuts (auto) Absolute Nucleated RBC Nucleated RBC % (auto) Smear Tech's Comments VBG pH VBG pCO2 VBG pO2 VBG HCO3 VBG O2 Saturation VBG Base Excess Sodium Potassium Chloride Carbon Dioxide Anion Gap BUN Creatinine Estim Creat Clear Calc Estimated GFR POC Glucose 276 H Random Glucose Calcium Phosphorus Magnesium Total Bilirubin AST ALT Alkaline Phosphatase Total Protein Albumin Hep Bs Antigen Negative Hep Bs Antibody REACTIVE Blood Type A Positive Antibody Screen NEGATIVE Crossmatch See Detail 09/07/23 09/07/23 09/07/23 17:15 19:55 23:58 WBC 27.4 H RBC 1.73 L D Hgb 5.7 L* Hct 17.4 L* D MCV 100.6 H MCH 32.9 MCHC 32.8 RDW 18.3 H Plt Count 328 MPV 9.9 Immature Gran % (Auto) 4.2 H Neut % (Auto) 69.7 Lymph % (Auto) 13.8 L [place] % (Auto) 11.6 H Eos % (Auto) 0.3 Baso % (Auto) 0.4 Lymph # (Auto) 3.8 [place] # (Auto) 3.2 H Eos # (Auto) 0.1 Baso # (Auto) 0.1 Abs Immat Gran (auto) 1.15 H Absolute Neuts (auto) 19.1 H Absolute Nucleated RBC 1.210 H Nucleated RBC % (auto) 4.4 H Smear Tech's Comments VERIFIED VBG pH VBG pCO2 VBG pO2 VBG HCO3 VBG O2 Saturation VBG Base Excess Sodium 132 L Potassium 4.8 Chloride 98 Carbon Dioxide 19 L Anion Gap 20 BUN 18 H Creatinine 1.61 H Estim Creat Clear Calc 41.1 Estimated GFR 33 POC Glucose 215 H 319 H Random Glucose 265 H Calcium 8.6 Phosphorus 2.8 Magnesium 2.1 Total Bilirubin AST ALT Alkaline Phosphatase Total Protein Albumin 3.6 Hep Bs Antigen Hep Bs Antibody Blood Type Antibody Screen Crossmatch 09/08/23 09/08/23 04:50 06:11 WBC 21.4 H RBC 2.42 L D Hgb 7.9 L D Hct 23.2 L D MCV 95.9 MCH 32.6 MCHC 34.1 RDW 17.0 H Plt Count 307 MPV 9.7 Immature Gran % (Auto) 4.0 H Neut % (Auto) 72.7 Lymph % (Auto) 12.8 L [place] % (Auto) 9.5 Eos % (Auto) 0.4 Baso % (Auto) 0.6 Lymph # (Auto) 2.7 [place] # (Auto) 2.0 H Eos # (Auto) 0.1 Baso # (Auto) 0.1 Abs Immat Gran (auto) 0.86 H Absolute Neuts (auto) 15.5 H Absolute Nucleated RBC 0.850 H Nucleated RBC % (auto) 4.0 H Smear Tech's Comments VERIFIED VBG pH 7.38 VBG pCO2 38 VBG pO2 37 VBG HCO3 23 VBG O2 Saturation 68.0 VBG Base Excess -1.6 Sodium 129 L Potassium 5.2 H Chloride 95 L Carbon Dioxide 19 L Anion Gap 20 BUN 25 H Creatinine 2.27 H Estim Creat Clear Calc 29.2 Estimated GFR 23 POC Glucose 330 H Random Glucose 326 H Calcium 8.8 Phosphorus 5.0 H Magnesium 2.2 Total Bilirubin 2.9 H AST 793 H ALT 178 H Alkaline Phosphatase 66 Total Protein 7.0 Albumin 3.4 L Hep Bs Antigen Hep Bs Antibody Blood Type Antibody Screen Crossmatch Microbiology Microbiology Results: Microbiology 09/06/23 20:20 Blood - Venous Blood Culture - Preliminary No growth after 24 hours. 09/06/23 20:20 Blood - Venous Blood Culture - Preliminary No growth after 24 hours. 08/26/23 14:13 Blood - Venous Blood Culture - Final No growth after 5 days. 08/26/23 14:13 Blood - Venous Blood Culture - Final No growth after 5 days. 08/26/23 11:25 Tracheal Aspirate Gram Stain - Final 08/26/23 11:25 Tracheal Aspirate Sputum Culture - Final Corynebacterium species 08/22/23 11:35 Neck Gram Stain - Final 08/22/23 11:35 Neck Routine Culture - Final Group F Streptococcus 08/19/23 09:51 Blood - Venous Blood Culture - Final No growth after 5 days. 08/19/23 09:51 Blood - Venous Blood Culture - Final No growth after 5 days. 08/21/23 17:34 Tracheal Aspirate Gram Stain - Final 08/21/23 17:34 Tracheal Aspirate Sputum Culture - Final Corynebacterium species 08/22/23 11:42 Urine Catheterized - Smith Catheter Urine Culture - Final No growth. 08/03/23 16:38 Sputum - Expectorated Gram Stain - Final 08/03/23 16:38 Sputum - Expectorated Sputum Culture - Final Aspergillus fumigatus 08/02/23 14:20 Blood - Venous Blood Culture - Final No growth after 5 days. 08/02/23 13:36 Blood - Venous Blood Culture - Final No growth after 5 days. Progress Note: A&P Assessment and plan (1) VERONIKA (acute kidney injury): Status: Acute (2) Leaking PEG tube: Status: Acute (3) Status post tracheostomy: Status: Acute (4) Encephalopathy acute: Status: Acute (5) Acute exacerbation of chronic obstructive airways disease: Status: Acute Plan Neuro: CT head done yesterday normal, previous MRIs normal Continue methadone 10mg BID today. Her home dose of methadone 50 mg daily. will restart home clonazepam 1mg BID mental status has improved, following all commands and answering questions appropriately will add precedex, to wean off propofol Acute on chronic respiratory failure: Admitted for acute exacerbation of COPD Currently she is status post tracheostomy tube placement on ventilator support PEG tube leak: will consult surgery Medications allowed through G-tube PPN for nutrition Atrial fibrillation with RVR: Currently in sinus rhythm , rate normal Oral diltiazem continued hold metoprolol q.4 hours in view of hypotension, on levophed for vasopressor support Acute renal failure: secondary to acute blood loss anemia and obstructive uropathy received renal replacement therapy starting on 09/06/2023 Acute blood loss anemia: secondary to reteroperitoneal bleed will repeat Hb this morning, and if it is further dropping will consult IR for embolization Heart failure with preserved ejection fraction: Diuresis with Lasix to keep fluid balance even hold metoprolol and diltiazem Hyperglycemia: will switch levophed fluid from dextrose to NS Sliding scale insulin as needed Lantus 30 units in AM and 20U in PM. Sliding scale insulin as needed Lines: Peripheral off of Smith catheter Lines: Right IJ hemodialysis cath peripherals no Smith Prophylaxis: , pantoprazole Quality Stroke Does the patient have a stroke diagnosis?: No VTE Prior VTE?: Yes Approximate Date of Prior VTE: 08/27/23 VTE Risk Level:: Medical - moderate - high VTE Device Contraindication: Treatment Not Indicated VTE Drug Contraindication: N/A - Med Ordered
--- NOTE | 2023-09-08 08:55 | P.CONNP_ITS ---
History of Present Illness Reason for Consult Consult date: 09/08/23 Chief Complaint Chief complaint: Acute hypoxic and hypercapnea failure History of Present Illness Narrative: 53 yo female well known to [facility] [place] with with history of chronic hypoxic and hypercarbic respiratory failure on 2L NC and BiPAP QHS, CHITO/OHS, aspiration, asthma/COPD overlap syndrome, former smoker,? chronic methadone use, obesity, DM, CHITO, HLD.? She was recently admitted 07/08-? for acute and chronic respiratory failure with hypercapnia. The patient was brought in by ambulance with complaint of headache and nausea. She was found to be hypoxic to 60?s% Baseline creatinine 0.7 Had multiple episodes of hypotension Received Vancomycin; Peak level of 27.[address] did not show obstruction Repeat CT on 09/06 shows Mild hydro with hematoma? She was on potassium supplementation in a setting of VERONIKA Developed hyperkalemia requring dialysis Review of Systems Review of Systems Yes unobtainable due to endotracheal tube PMFSH Past Medical History Medical History (Updated 09/06/23 @ 11:01 by Rasta Geller MD) Positive sputum culture for Aspergillus Leaking PEG tube Type 2 diabetes mellitus Opioid dependence Intensive care (ICU) myopathy Asthma CHITO (obstructive sleep apnea) Constipation Salmonella gastroenteritis Obesity with alveolar hypoventilation Congestive heart failure Chronic constipation Acute respiratory failure Hypertensive cardiovascular disease Pulmonary nodule Chronic respiratory failure Tobacco abuse Asthma-COPD overlap syndrome Hyperlipidemia, unspecified Essential hypertension Chronic respiratory failure Family History Family History Father Diabetes Other Asthma Family history: reviewed and not pertinent Surgical History Surgical History H/O tubal ligation Social History Social History Household Members: Children Household Members Other:: daughter Housing: Apartment Do you presently have visiting nurse or other home services: Yes Unable to assess alcohol history related to: Unknown Alcohol intake: never Comment: sitter at bedside Patient Tobacco Use Status: Former Tobacco user Tobacco use type: Cigarette Cigarettes Per Day: 1 Years Smoked: 35 e-Cigarette/Vaping Use: Currently Using Second Hand Smoke Exposure: No Substance Use Type: Opiates Advance Directives Date on File: 06/12/21 service: No Current occupational status: unemployed and disabled Meds Allergies Allergy/AdvReac Type Severity Reaction Status Date / Time No Known Allergies Allergy Verified 08/02/23 13:35 [No Known Allergies*] Active Medications: Current Medications Acetaminophen (Acetaminophen 325 Mg Tablet) 975 mg PO Q6H PRN PRN Reason: Pain, Mild (Pain Scale 1-3) Last Admin: 09/06/23 10:03 Dose: 975 mg Albuterol/Ipratropium (Albuterol/Iprat 2.5/0.5mg 3 Ml Ampul.Neb) 3 ml INHALE RQ4H WHILE AWAKE [facility] Last Admin: 09/08/23 07:38 Dose: 3 ml Buspirone HCl (Buspirone Hcl 10 Mg Tablet) 10 mg PO BID [facility] Last Admin: 09/08/23 08:01 Dose: 10 mg Calcitonin [place] (Calcitonin,[place],Synth Nasal 3.7 Ml Bottle) 1 spray NOSTRIL-B DAILY [facility] Last Admin: 09/08/23 08:01 Dose: 1 spray Chlorhexidine Gluconate (Chlorhexidine Gluc Oral Rinse 15 Ml Mouthwash) 15 ml BUCCAL TID [facility] Last Admin: 09/08/23 08:01 Dose: 15 ml Diltiazem HCl (Diltiazem Hcl 60 Mg Tablet) 60 mg PO QID [facility]; Protocol Last Admin: 09/08/23 08:00 Dose: 60 mg Glucose (Glucose Gel 15 Gm Gel..Gram.) 15 gm PO Q15M PRN; Protocol PRN Reason: per Hypoglycemia Standing Ord. Hydroxyzine HCl (Hydroxyzine Hcl 50 Mg Tablet) 50 mg PO Q6H PRN PRN Reason: Anxiety Last Admin: 09/05/23 19:11 Dose: 50 mg Dextrose (D10) 250 mls @ 750 mls/hr IV Q15M PRN; Protocol PRN Reason: per Hypoglycemia Standing Ord. Last Infusion: 08/30/23 12:06 Dose: Infused Dextrose (D10) 250 mls @ 750 mls/hr IV Q30M PRN PRN Reason: BG <70 Last Infusion: 08/30/23 07:10 Dose: Infused Metoprolol Tartrate 10 mg/ (Sodium Chloride) 60 mls @ 240 mls/hr IV Q6H PRN; Protocol PRN Reason: Tachycardia Last Infusion: 09/07/23 15:57 Dose: Infused Propofol (Diprivan) 1,000 mg in 100 mls @ 0 mls/hr IVCONT .Q0M ANA; Protocol Last Admin: 09/08/23 08:05 Dose: 50 mcg/kg/min, 26.43 mls/hr Norepinephrine Bitartrate (Levophed) 8 mg in 250 mls @ 0 mls/hr IV .Q0M ANA; Protocol Last Titration: 09/08/23 08:40 Dose: 0.13 mcg/kg/min, 21.47 mls/hr Insulin Glargine (Insulin Glargine,Hum.Rec.Anlog 100 Unit/Ml 10 Ml Vial) 30 unit SUBCUT DAILY [facility] Last Admin: 08/30/23 08:08 Dose: 30 unit Insulin Glargine (Insulin Glargine,Hum.Rec.Anlog 100 Unit/Ml 10 Ml Vial) 20 unit SUBCUT BEDTIME ANA Last Admin: 08/30/23 20:50 Dose: Not Given Insulin Human Lispro (Insulin Lispro 100 Unit/Ml 3 Ml Vial) 0 unit SUBCUT Q6H ANA; Protocol Last Admin: 09/08/23 06:17 Dose: 8 unit Insulin Human Lispro (Insulin Lispro 100 Unit/Ml 3 Ml Vial) 5 unit SUBCUT Q6H [facility] Last Admin: 09/08/23 06:17 Dose: 5 unit Lactic Acid (Ammonium Lactate 12 % Lotion 226 Gm Bottle) 1 appl TOPICAL DAILY PRN; Protocol PRN Reason: Dry Skin Lamotrigine (Lamotrigine 100 Mg Tablet) 150 mg PO BID [facility] Last Admin: 09/08/23 08:00 Dose: 150 mg Lidocaine (Lidocaine 4 % Patch Adh..Patch) 1 patch TRANSDERMA DAILY PRN PRN Reason: Pain Lorazepam (Lorazepam 2 Mg/Ml Vial) 2 mg IVPUSH Q4H PRN PRN Reason: anxiety/restlessness Last Admin: 09/08/23 01:40 Dose: 2 mg Methadone HCl (Methadone Hcl 20 Mg/2 Ml Oral.Conc) 10 mg PO DAILY [facility] Last Admin: 09/08/23 08:00 Dose: 10 mg Nystatin (Nystatin Oral Susp 500,000 Unit/5 Ml Oral.Susp) 100,000 unit BUCCAL TID [facility]; Protocol Last Admin: 09/08/23 08:01 Dose: 100,000 unit Ondansetron HCl (Ondansetron Hcl 4 Mg/2 Ml Vial) 4 mg IVPUSH Q4H PRN PRN Reason: Nausea and Vomiting Last Admin: 09/05/23 20:05 Dose: 4 mg Polyethylene Glycol (Polyethylene Glycol 3350 17 Gm Powd.Pack) 17 gm PO DAILY PRN PRN Reason: Constipation Sodium Chloride (0.9 % Sodium Chloride Flush 3 Ml Syringe) 3 ml IVFLUSH QSHIFT [facility] Last Admin: 09/08/23 07:29 Dose: 3 ml Home Medications ?Medication ?Instructions ?Recorded ?Confirmed ?Last Taken ?Type loratadine 10 mg tablet (Claritin) 10 mg PO DAILY 12/30/19 08/03/23 05/18/23 History montelukast 10 mg tablet 10 mg PO BEDTIME 12/30/19 08/03/23 05/18/23 History diltiazem HCl 360 mg capsule,24 360 mg PO DAILY 11/16/20 08/03/23 05/18/23 History hr,extended release (Tiadylt ER) roflumilast 500 mcg tablet 500 mcg PO DAILY 11/16/20 08/03/23 05/18/23 History (Daliresp) rosuvastatin 5 mg tablet 5 mg PO BEDTIME 11/16/20 08/03/23 05/18/23 History metformin 500 mg tablet,extended 500 mg PO DAILY 05/18/21 08/03/23 05/18/23 History release 24 hr methadone 10 mg/mL oral concentrate 50 mg PO DAILY 06/06/21 08/03/23 08/02/23 09:00 History hydralazine 25 mg tablet 25 mg PO TIDWM 11/02/21 08/03/23 05/18/23 History insulin lispro 100 unit/mL 4 unit subcut TIDAC PRN 11/02/21 08/03/23 05/18/23 History subcutaneous solution Hyperglycemia clonazepam 1 mg tablet 1 mg PO BID PRN Anxiety 06/28/22 08/03/23 Unknown History lamotrigine 150 mg tablet 150 mg PO BID 07/29/22 08/03/23 05/18/23 History calcitonin (salmon) 200 1 spray intranasal DAILY 09/30/22 08/03/23 05/18/23 History unit/actuation nasal spray insulin glargine 100 unit/mL 45 unit subcut BEDTIME 09/30/22 08/03/23 05/18/23 History subcutaneous solution (Lantus U-100 Insulin) docusate sodium 100 mg capsule 100 mg PO BID PRN constipation 10/20/22 08/03/23 Unknown History nebulizers 11/08/22 07/16/23 02/02/23 09:00 History polyethylene glycol 3350 17 17 g PO DAILY PRN constipation 12/21/22 08/03/23 02/20/23 History gram/dose oral powder (Miralax) ammonium lactate 12 % lotion 1 appl topical DAILY PRN Dry Skin 02/02/23 08/03/23 05/18/23 History diclofenac sodium 1 % topical gel 4 g topical QID PRN Pain 05/04/23 08/03/23 Unknown History zolpidem 5 mg tablet 5 mg PO BEDTIME PRN Sleep 05/04/23 08/03/23 Unknown History cholecalciferol (vitamin D3) 1,250 1,250 mcg PO MOTH 05/19/23 08/03/23 Unknown History mcg (50,000 unit) capsule lidocaine 5 % topical patch 1 patch topical DAILY PRN Pain 05/19/23 08/03/23 Unknown History azathioprine 50 mg tablet 100 mg PO DAILY 06/24/23 08/03/23 Unknown History Physical Exam Vital Signs: Last Vital Signs Temp 100.0 F 09/08/23 07:57 Pulse 117 H 09/08/23 08:40 Resp 20 09/08/23 07:57 BP 104/59 L 09/08/23 08:40 Pulse Ox 96 09/08/23 07:57 O2 Del Method Mechanical Ventilation 09/08/23 07:57 O2 Flow Rate 30 09/06/23 16:57 FiO2 30 09/08/23 07:57 BMI result Body Mass Index 39.2 Const General: ill appearing Neck Neck: Yes supple Resp Auscultation: clear to auscultation bilaterally Cardio Palpation: no palpable S3 Heart sounds: no rubs GI Palpation (GI): Soft to palpation Auscultation: normal bowel sounds Neuro Motor exam (neuro): no asterixis Results Lab Results 09/08/23 04:50 09/08/23 04:50 Lab results: Chemistry 09/06/23 09/06/23 09/06/23 04:39 13:11 20:20 Sodium 137 131 L 135 Potassium 6.8 H* D 7.8 H* 5.0 D Carbon Dioxide 30 H 27 29 BUN 30 H 36 H 23 H Creatinine 1.82 H 2.46 H 1.52 H Calcium 10.7 H 10.0 D 8.9 D Phosphorus 5.3 H 4.6 H 09/07/23 09/07/23 09/08/23 04:32 19:55 04:50 Sodium 132 L 132 L 129 L Potassium 6.0 H* 4.8 5.2 H Carbon Dioxide 24 19 L 19 L BUN 30 H 18 H 25 H Creatinine 2.14 H 1.61 H 2.27 H Calcium 8.8 8.6 8.8 Phosphorus 3.4 2.8 5.0 H Hematology 09/06/23 09/06/23 09/06/23 04:38 17:56 20:20 WBC 18.8 H 37.6 H* 33.0 H* Hgb 6.4 L* D 7.3 L 6.4 L* Plt Count 431 H 439 H 345 09/07/23 09/07/23 09/08/23 04:32 19:55 04:50 WBC 25.5 H 27.4 H 21.4 H Hgb 7.1 L 5.7 L* 7.9 L D Plt Count 334 328 307 09/07/23 Mild left hydronephrosis and proximal ureteral dilatation. The left kidney is displaced anteriorly by a new large left retroperitoneal hematoma. This involves the left psoas and iliacus muscles and extends into the pelvis. This has a hematocrit and fluid fluid levels. There is are small foci of air. Possible infected hematoma should be considered.The right kidney is unremarkable. BLADDER: The bladder is displaced to the right by the large left retroperitoneal hematoma. Assessment and Plan (1) VERONIKA (acute kidney injury): Status: Acute Plan Probably has mutlifactorial ATN from hypptension and vanco induced tubular injury Hyperkalemia due to K supplementation in a setting of VERONIKA Mild left hydro with retroperitoneal hematoma Plan; Keep jimenez Follow UO Keep SBP > 100 Avoid nephrotoxins including Vanco DC K supplements( done) Watch for renal recovery and dialysis support as needed Procedures Date of Service Date of Service: 09/08/23
[2023-09-08] MEDS: dexmedeTOMIDidine HCL/NS 400 MCG/100 ML INFUS..BTL 22.78 MCG IVCONT (09:34)
[2023-09-08] MEDS: Norepinephrine Bitartrate/D5W 8 MG/250 ML PLAST..BAG 18.17 MG IV (09:42)
--- NOTE | 2023-09-08 10:09 | MHC.CM.PN ---
EMR REVIEWED, PT W/PEG/TRACH/MECH VENT, PER ICU ROUNDS PT NOT STABLE FOR DC, PT TRANSFUSED OVER NIGHT, FEBRILE 102.6 DROPPED TO 100.0 ON MECH VENT W/PROP, PLAN FOR HD TODAY AND CHANGE TO PRECEDEX AFTER HD, PEG TUBE ALSO LEAKING AGAIN OVER W/E AND FEED STOPPED, PER CAN MAKER PLAN FOR GOALS OF CARE DISCUSSION W/FAMILY PT WILL MAY NOT BE STABLE ENOUGH FOR TRANSFER TO LT[facility], CM WILL CONT TO FOLLOW DC NEEDS.
--- NOTE | 2023-09-08 10:15 | MHC.CLN ---
F/U REVIEWED LABS DISCUSSED AT ROUNDS WITH MD FARAH ON HOLD R/T HIGH RESIDUALS NURSING NOTED LEAKING AROUND PEG SITE AGAIN, TEMP 102.6, AND HD TRICKLE FEEDS PER MD AT 10ML/HR WHEN ABLE; RECOMMEND GLUCERNA TF AT MAX GOAL RATE 55ML/HR WITH 30ML PROSOURCE BID AND 120ML FREE WATER FLUSHES Q 4 HRS TO PROVIDE 1440KCALS (24KCALS/KG), 85G PROTEIN (1.4G/KG), 1846ML TOTAL FREE WATER FROM FORMULA AND FLUSHES (31ML/KG) MONITOR TOLERANCE, RESIDUALS AND LYTES
[2023-09-08 10:34] LABS: Hematocrit 21.8 % (37.0-47.0); Hemoglobin 7.3 g/dl (12.0-16.0); Mean Corpuscular HGB Conc 33.5 g/dl (31.0-35.0); Mean Corpuscular Hemoglobin 32.6 pg (27.0-33.0); Mean Corpuscular Volume 97.3 fL (80.0-98.0); Mean Platelet Volume 9.9 fL (9.4-12.3); Platelet Count 308 X10*3/uL (160-400); Red Blood Count 2.24 X10*6/uL (4.20-5.50); Red Cell Distribution Width 17.4 % (11.0-16.0); White Blood Count 19.8 X10*3/uL (4.8-10.8)
[2023-09-08 10:36] LABS: NRBC Pct Auto 4.7 /100WBC (0.0-0.2)
[2023-09-08 10:58] LABS: HBc Num2 1.58 S/CO; HBc Num3 1.51 S/CO; Hepatitis B Core Antibody Reactive (Nonreactive)
[2023-09-08 11:16] LABS: Glucose, Whole Blood 287 mg/dL (60-115)
[2023-09-08] MEDS: dexmedeTOMIDidine HCL/NS 400 MCG/100 ML INFUS..BTL 31.89 MCG IVCONT ×3 (11:56→17:34)
[2023-09-08] MEDS: Acetaminophen 325 MG TABLET 975 MG PO (16:10)
[2023-09-08 17:58] LABS: Glucose, Whole Blood 339 mg/dL (60-115)
[2023-09-08] MEDS: Norepinephrine Bitartrate/D5W 8 MG/250 ML PLAST..BAG 28.08 MG IV (18:47)
[2023-09-08] MEDS: dexmedeTOMIDidine HCL/NS 400 MCG/100 ML INFUS..BTL 34.16 MCG IVCONT (20:32)
[2023-09-08 20:37] LABS: Hemoglobin 7.1 g/dl (12.0-16.0); Mean Corpuscular HGB Conc 34.3 g/dl (31.0-35.0); Mean Corpuscular Hemoglobin 32.3 pg (27.0-33.0); Mean Corpuscular Volume 94.1 fL (80.0-98.0); Mean Platelet Volume 9.4 fL (9.4-12.3); Platelet Count 279 X10*3/uL (160-400); Red Cell Distribution Width 17.2 % (11.0-16.0); White Blood Count 17.2 X10*3/uL (4.8-10.8)
[2023-09-08 20:46] LABS: NRBC Pct Auto 2.6 /100WBC (0.0-0.2)
[2023-09-08 20:49] LABS: Hematocrit 20.7 % (37.0-47.0)
[2023-09-08 21:01] LABS: Band Neutrophils Percent 3 % (3-5); Eosinophils Absolute Manual 0.2 X10*3/uL (0.0-0.4); Eosinophils Percent Manual 1 % (0-4); Lymphocytes Absolute Manual 3.1 X10*3/uL (1.2-4.9); Lymphocytes Percent Manual 18 % (20-40); Metamyelocytes Absolute 0.2 X10*3/uL; Metamyelocytes Percent 1 %; Monocytes Absolute Manual 0.9 X10*3/uL (0.1-1.2); Monocytes Percent Manual 5 % (2-11); Neutrophils Absolute Manual 12.9 X10*3/uL (2.0-8.3); Neutrophils Percent Manual 72 % (45-73); Nucleated Red Blood Cells 3 /100WBC (0-0)
[2023-09-08 21:03] LABS: Basophilic Stippling 1+ (0-2) /OIF; Polychromasia 2+ (3-5) /OIF
[2023-09-08 21:06] LABS: Alanine Aminotransferase 208 U/L (0-31); Albumin Level 3.2 g/dL (3.5-5.0); Alkaline Phosphatase 63 U/L (39-117); Anion Gap 17 (12-20); Aspartate Amino Transferase 677 U/L (5-31); Bilirubin Total 1.6 mg/dL (0.0-1.0); Blood Urea Nitrogen 38 mg/dL (9-16); Calcium 9.4 mg/dL (8.4-10.2); Carbon Dioxide 20 mmol/L (22-29); Chloride 95 mmol/L (96-108); Creatinine Clr Calc Pharmacy 20.9; Estimated Glomerular Filt Rate 16; Glucose Random 367 mg/dL (60-115); Potassium 5.4 mmol/L (3.3-5.1); Sodium 127 mmol/L (135-145); Total Protein 6.4 g/dL (6.5-8.0)
[2023-09-08 21:07] LABS: Platelet Estimate NORMAL (NORMAL); Platelet Morphology Comment NORMAL; RBC Morphology NORMAL
[2023-09-08] MEDS: Insulin Regular, Human 100 UNIT/ML 10 ML VIAL 10 UNIT IVPUSH (21:27)
[2023-09-08] MEDS: Albumin Human 25 % 100 ML IV ×2 (21:29→22:29)
[2023-09-08] MEDS: dexmedeTOMIDidine HCL/NS 400 MCG/100 ML INFUS..BTL 29.61 MCG IVCONT (23:37)
[2023-09-08 23:50] LABS: Glucose, Whole Blood 314 mg/dL (60-115)
[2023-09-09] VITALS (35 sets, daily range): BP systolic 81–136; BP diastolic 42–79; PULSE 83–113; RESP 12–30; TEMP 35–37.8; O2SAT 69–98; BMI 39.4
[2023-09-09] MEDS: Insulin Lispro 100 UNIT/ML 3 ML VIAL SUBCUT ×6 (00:24→11:24)
[2023-09-09] MEDS: 0.9 % Sodium Chloride Flush 3 ML SYRINGE IVFLUSH ×2 (00:33→07:34)
[2023-09-09 01:25] LABS: Hematocrit 17.7 % (37.0-47.0)
[2023-09-09 02:16] LABS: Prothrombin Time 12.4 SEC (11.1-13.3)
[2023-09-09] MEDS: dexmedeTOMIDidine HCL/NS 400 MCG/100 ML INFUS..BTL 29.61 MCG IVCONT (03:00)
[2023-09-09 05:16] LABS: VBG Base Excess -4.4 mmol/L; VBG HCO3 21 mmol/L (22-26); VBG pCO2 41 mmHg; VBG pH 7.31 (7.32-7.43); VBG pO2 43 mmHg
[2023-09-09 05:22] LABS: Venous Blood Gas Refer to POC result
--- NOTE | 2023-09-09 05:29 | PM.CCN ---
Critical Care Event Note Summary Date of Service: 09/09/23 Code activated: No Narrative: This case had a high probability of a clinically significant, sudden, or life threatening deterioration of this patient's condition which required my full and direct attention, intervention and personal management. Critical Care Time (minutes): 45 Comment: Patient who is well known to me due to previous encounters during her long hospitalization; patient had developed a large retroperitoneal bleed in the setting of anticoagulation used to treat bilateral upper extremity DVTs. The patient received packed red blood cells and fresh frozen plasma, platelets yesterday. Follow-up of the patient's H&H after the transfusion that she received in the into the of this month showed levels of 7.9 and 23.2 but slowly trending down, this evening when down to 7.1 and 21 and subsequently to 6 in 17.7. It is known that the patient was retaining urine, straight catheter done by nursing revealed about 300 cc of red urine. The area marked on her abdomen around the known hematoma does not appear to have spread however I can not tell for whatever is happening internally; although it is known that such hematoma was also pressing 1 of her kidneys per CT report. Even though the patient is hemodynamically stable as we have supported her overnight with pressors as well as albumin, her H&H continues to go down therefore 2 units of packed red blood cells were ordered. Her current platelet count is 279. Will check PT INR levels. In addition the patient's left lower extremity appeared to be quite edematous during my rounds therefore an ultrasound of the extremity was ordered to rule out DVT and this was negative. Therefore this is likely a side effect of the hematoma near the psoas, iliac muscles of the left lower extremity. Will recheck laboratories after the transfusion and order haptoglobin levels to rule out hemolysis. Furthermore given the concern for ongoing bleeding TXA 1000 mg x 1 IV ordered. No FFP as its effect is short lived. I will discuss the case with Dr. Castellanos this morning so that perhaps a bleeding scan is done plus-minus IR guided embolization of any source of bleeding versus evacuation of the hematoma although usually they self absorb; however there is the possibility that this may be infected. In addition given the upper extremity DVTs and risk of developing lower extremities DVTs due to her chronic immobilization state and illness, she would be a good candidate for a IVC filter placement. Will keep a MAP of 65 as higher BPs may cause her to bleed more. Critical care time used for critical evaluation of this patient, diagnosis, treatment and coordination of care, review her records and documentation TOTAL CRITICAL CARE TIME 45 MIN . discussion and coordination with consultants, completely separate from any procedures performed. . Patient's care was discussed in detail with Dr. Castellanos. He is aware of all the above as well as the plan of care for this patient.
[2023-09-09] MEDS: Tranexamic Acid 1,000 MG in 0.9 % Sodium Chloride 250 ML 32.5 MG IV (05:45)
[2023-09-09 05:51] LABS: Hematocrit 25.2 % (37.0-47.0); Hemoglobin 8.3 g/dl (12.0-16.0); Mean Corpuscular HGB Conc 32.9 g/dl (31.0-35.0); Mean Corpuscular Hemoglobin 30.9 pg (27.0-33.0); Mean Corpuscular Volume 93.7 fL (80.0-98.0); Mean Platelet Volume 9.3 fL (9.4-12.3); NRBC Pct Auto 3.3 /100WBC (0.0-0.2); Platelet Count 200 X10*3/uL (160-400); Red Blood Count 2.69 X10*6/uL (4.20-5.50); Red Cell Distribution Width 16.5 % (11.0-16.0); White Blood Count 12.1 X10*3/uL (4.8-10.8)
[2023-09-09 05:51] LABS: Alanine Aminotransferase 149 U/L (0-31); Albumin Level 3.5 g/dL (3.5-5.0); Alkaline Phosphatase 54 U/L (39-117); Anion Gap 21 (12-20); Aspartate Amino Transferase 389 U/L (5-31); Bilirubin Total 2.5 mg/dL (0.0-1.0); Blood Urea Nitrogen 43 mg/dL (9-16); Calcium 8.4 mg/dL (8.4-10.2); Carbon Dioxide 20 mmol/L (22-29); Chloride 94 mmol/L (96-108); Creatinine Clr Calc Pharmacy 20.1; Estimated Glomerular Filt Rate 15; Glucose Random 331 mg/dL (60-115); Potassium 5.9 mmol/L (3.3-5.1); Sodium 129 mmol/L (135-145); Total Protein 6.3 g/dL (6.5-8.0)
[2023-09-09 05:59] LABS: Glucose, Whole Blood 315 mg/dL (60-115)
[2023-09-09] MEDS: dexmedeTOMIDidine HCL/NS 400 MCG/100 ML INFUS..BTL 20.5 MCG IVCONT (06:11)
[2023-09-09 06:20] LABS: Band Neutrophils Percent 10 % (3-5); Lymphocytes Absolute Manual 1.6 X10*3/uL (1.2-4.9); Lymphocytes Percent Manual 13 % (20-40); Monocytes Absolute Manual 0.5 X10*3/uL (0.1-1.2); Monocytes Percent Manual 4 % (2-11); Neutrophils Percent Manual 73 % (45-73)
[2023-09-09 06:21] LABS: Nucleated Red Blood Cells 3 /100WBC (0-0)
[2023-09-09 06:22] LABS: Burr Cells 1+ (0-2) /OIF; Hypochromasia 1+ (5-14) /OIF; Microcytosis 1+ (5-14) /OIF; Platelet Estimate NORMAL (NORMAL); Platelet Morphology Comment NORMAL; Polychromasia 2+ (3-5) /OIF; RBC Morphology NOTED; Spherocytes 1+ (0-2) /OIF; Tear Drop Cells 1+ (0-2) /OIF
--- NOTE | 2023-09-09 07:05 | PC.NURSE ---
Upon initial assessment: Pt sedated on Precedex gtt- titrated per protocol. Right pupil 2mm sluggish. Left pupil 3mm sluggish. Absent cough and gag. Grimaces to oral care. Grimaces to trapezius squeeze. No response to nailbed pressure in all four extremities. Does not open eyes or follow commands. Flaccid extremities. Skin feels hot, oral temp 101.8. Rectal temp 103.1, PA aware, cooling blanket applied to pt. Normal sinus/ sinus tach on tele, HR 90-110s. Levophed gtt titrated per protocol. Left LE edema > right LE. Faint left pedal pulse, confirmed with doppler. PA notified- Left LE venous duplex ordered and performed- see report. Pt on PC settings. Dim throughout. Scant amount of thin clear inline secretions. LUQ PEG. Tube feeds on hold since 09/06 per MD. Moderate amount of dark green fluid leaking around PEG site- area cleaned and new gauze applied PRN. 60ml of dark green residual from PEG. Abd large, round, distended and firm. Hypoactive/ faint bowel sounds. No BM since 09/04. PA aware. Critical random glucose of 367- PA notified. Order for 10units of IVP Insulin given, and Levophed gtt changed to be mixed with normal saline instead of D5. Purewick in place, no measurable output, only small amount of red/brown staining to purewick. Bladder scanned for 0ml, however difficult to scan given abd size/distention. PA notified- straight cath ordered and performed. Straight cathed for 300ml of dark red/brown output. PA aware, no new orders at this time. Approx 0100- H/H 6.0/17.7 - 2u RBCs and IV Transexamic acid given as ordered.
[2023-09-09] MEDS: Albuterol/Iprat 2.5/0.5MG 3 ML AMPUL.NEB INHALE ×2 (07:25→11:36)
[2023-09-09] MEDS: methADONE HCl 20 MG/2 ML ORAL.CONC 10 MG PO (07:34)
[2023-09-09] MEDS: Nystatin Oral Susp 500,000 UNIT/5 ML ORAL.SUSP 100000 UNIT BUCCAL (07:36)
[2023-09-09] MEDS: lamoTRIgine 100 MG TABLET 150 MG PO (07:36)
[2023-09-09] MEDS: busPIRone HCl 10 MG TABLET PO (07:36)
[2023-09-09] MEDS: Calcitonin,Salmon,Synth Nasal 3.7 ML BOTTLE 1 SPRAY NOSTRIL-B (07:37)
[2023-09-09] MEDS: Chlorhexidine Gluc Oral Rinse 15 ML MOUTHWASH BUCCAL (07:37)
--- NOTE | 2023-09-09 09:34 | MHC.CLN ---
F/U REVIEWED LABS TF ON HOLD R/T LEAKING AROUND SITE-SURGICAL TEAM CONSULTED PPN TO START DISCUSSED WITH PHARMACY RECOMMEND PPN AT 50ML/HR TO PROVIDE 612KCALS, 120G DEXTROSE, 51G PROTEIN HOLD LIPIDS AND K+ REPLETE LYTES NEEDED
--- NOTE | 2023-09-09 09:52 | PM.PNGS ---
Subjective Subjective Date of Service: 09/09/23 Interval history: Was able to achieve goal rate on tube feeds however began leaking at G tube site yesterday again. Tube feeds therefore held overnight. No leakage noted this am. Physical Exam Vital Signs: Vital Signs: Last Vital Signs Temp 98.9 F 09/09/23 08:00 Pulse 90 09/09/23 08:56 Resp 17 09/09/23 08:56 BP 93/51 L 09/09/23 08:56 Pulse Ox 95 09/09/23 08:56 O2 Del Method Mechanical Ventil ation 09/09/23 08:56 O2 Flow Rate 30 09/06/23 16:57 FiO2 30 09/09/23 08:56 BMI result Body Mass Index 39.4 Resp: Other: trach in place, on vent GI: Other: G tube in place, no current drainage noted, no surrounding erythema Palpation (GI): Soft to palpation and nontender Objective Data Active Medications Acetaminophen (Acetaminophen 325 Mg Tablet) 975 mg PO Q6H PRN PRN Reason: Fever Last Admin: 09/08/23 16:10 Dose: 975 mg Documented By: MIRNA Albuterol/Ipratropium (Albuterol/Iprat 2.5/0.5mg 3 Ml Ampul.Neb) 3 ml INHALE RQ4H WHILE AWAKE [facility] Last Admin: 09/09/23 07:25 Dose: 3 ml Documented By: LIBAN Buspirone HCl (Buspirone Hcl 10 Mg Tablet) 10 mg PO BID [facility] Last Admin: 09/09/23 07:36 Dose: 10 mg Documented By: SERGE Calcitonin [place] (Calcitonin,[place],Synth Nasal 3.7 Ml Bottle) 1 spray NOSTRIL-B DAILY [facility] Last Admin: 09/09/23 07:37 Dose: 1 spray Documented By: SERGE Chlorhexidine Gluconate (Chlorhexidine Gluc Oral Rinse 15 Ml Mouthwash) 15 ml BUCCAL TID [facility] Last Admin: 09/09/23 07:37 Dose: 15 ml Documented By: SERGE Diltiazem HCl (Diltiazem Hcl 60 Mg Tablet) 60 mg PO QID [facility]; Protocol Last Admin: 09/08/23 08:00 Dose: 60 mg Documented By: MIRNA Glucose (Glucose Gel 15 Gm Gel..Gram.) 15 gm PO Q15M PRN; Protocol PRN Reason: per Hypoglycemia Standing Ord. Hydroxyzine HCl (Hydroxyzine Hcl 50 Mg Tablet) 50 mg PO Q6H PRN PRN Reason: Anxiety Last Admin: 09/05/23 19:11 Dose: 50 mg Documented By: ZACK Dextrose (D10) 250 mls @ 750 mls/hr IV Q15M PRN; Protocol PRN Reason: per Hypoglycemia Standing Ord. Last Infusion: 08/30/23 12:06 Dose: Infused Documented By: GETACHEW Dextrose (D10) 250 mls @ 750 mls/hr IV Q30M PRN PRN Reason: BG <70 Last Infusion: 08/30/23 07:10 Dose: Infused Documented By: GETACHEW Metoprolol Tartrate 10 mg/ (Sodium Chloride) 60 mls @ 240 mls/hr IV Q6H PRN; Protocol PRN Reason: Tachycardia Last Infusion: 09/07/23 15:57 Dose: Infused Documented By: MIRNA Propofol (Diprivan) 1,000 mg in 100 mls @ 0 mls/hr IVCONT .Q0M ANA; Protocol Last Titration: 09/08/23 18:06 Dose: Infused Documented By: MIRNA Dexmedetomidine HCl (Precedex) 400 mcg in 100 mls @ 0 mls/hr IVCONT .Q0M ANA; Protocol Last Titration: 09/09/23 09:36 Dose: 0.9 mcg/kg/hr, 20.5 mls/hr Documented By: SERGE Tranexamic Acid 1,000 mg/ (Sodium Chloride) 260 mls @ 32.5 mls/hr IV .Q8H ONE Stop: 09/09/23 10:12 Last Admin: 09/09/23 05:45 Dose: 32.5 mls/hr Documented By: CARLO Comments: Delayed due to IV access- PA aware Norepinephrine Bitartrate 8 mg (/ Sodium Chloride) 258 mls @ 0 mls/hr IVCONT .Q0M ANA; Protocol Insulin Glargine (Insulin Glargine,Hum.Rec.Anlog 100 Unit/Ml 10 Ml Vial) 30 unit SUBCUT DAILY ANA Last Admin: 08/30/23 08:08 Dose: 30 unit Documented By: GETACHEW Insulin Glargine (Insulin Glargine,Hum.Rec.Anlog 100 Unit/Ml 10 Ml Vial) 20 unit SUBCUT BEDTIME [facility] Last Admin: 08/30/23 20:50 Dose: Not Given Documented By: ROWENA Non-Admin Reason: Physician Held Med Comments: fsbs 79 Insulin Human Lispro (Insulin Lispro 100 Unit/Ml 3 Ml Vial) 0 unit SUBCUT Q6H [facility]; Protocol Last Admin: 09/09/23 06:12 Dose: 8 unit Documented By: CARLO Insulin Human Lispro (Insulin Lispro 100 Unit/Ml 3 Ml Vial) 5 unit SUBCUT Q6H [facility] Last Admin: 09/09/23 06:12 Dose: 5 unit Documented By: CARLO Lactic Acid (Ammonium Lactate 12 % Lotion 226 Gm Bottle) 1 appl TOPICAL DAILY PRN; Protocol PRN Reason: Dry Skin Lamotrigine (Lamotrigine 100 Mg Tablet) 150 mg PO BID [facility] Last Admin: 09/09/23 07:36 Dose: 150 mg Documented By: SERGE Lidocaine (Lidocaine 4 % Patch Adh..Patch) 1 patch TRANSDERMA DAILY PRN PRN Reason: Pain Lorazepam (Lorazepam 2 Mg/Ml Vial) 2 mg IVPUSH Q4H PRN PRN Reason: anxiety/restlessness Last Admin: 09/08/23 15:56 Dose: 2 mg Documented By: MIRNA Methadone HCl (Methadone Hcl 20 Mg/2 Ml Oral.Conc) 10 mg PO DAILY [facility] Last Admin: 09/09/23 07:34 Dose: 10 mg Documented By: SERGE Nystatin (Nystatin Oral Susp 500,000 Unit/5 Ml Oral.Susp) 100,000 unit BUCCAL TID [facility]; Protocol Last Admin: 09/09/23 07:36 Dose: 100,000 unit Documented By: SERGE Ondansetron HCl (Ondansetron Hcl 4 Mg/2 Ml Vial) 4 mg IVPUSH Q4H PRN PRN Reason: Nausea and Vomiting Last Admin: 09/05/23 20:05 Dose: 4 mg Documented By: ZACK Polyethylene Glycol (Polyethylene Glycol 3350 17 Gm Powd.Pack) 17 gm PO DAILY PRN PRN Reason: Constipation Sodium Chloride (0.9 % Sodium Chloride Flush 3 Ml Syringe) 3 ml IVFLUSH QSHIFT [facility] Last Admin: 09/09/23 07:34 Dose: 3 ml Documented By: SERGE Labs 09/09/23 05:42 09/09/23 05:10 Labs: Laboratory Results - last 24 hr 09/06/23 09/06/23 09/08/23 05:30 17:56 10:01 MCV 97.3 MCH 32.6 MCHC 33.5 RDW 17.4 H Plt Count 308 MPV 9.9 Immature Gran % (Auto) Neut % (Auto) Lymph % (Auto) [place] % (Auto) Eos % (Auto) Baso % (Auto) Lymph # (Auto) [place] # (Auto) Eos # (Auto) Baso # (Auto) Abs Immat Gran (auto) Absolute Neuts (auto) Absolute Nucleated RBC 0.920 H Nucleated RBC % (auto) 4.7 H Neutrophils % (Manual) Band Neutrophils % Lymphocytes % (Manual) Monocytes % (Manual) Eosinophils % (Manual) Metamyelocytes % Abs Neuts (Manual) Lymphocytes # (Manual) Monocytes # (Manual) Eosinophils # (Manual) Metamyelocytes # Nucleated RBCs Platelet Estimate Plt Morphology Comment RBC Morphology Polychromasia Hypochromasia Basophilic Stippling Microcytosis Spherocytes Tear Drop Cells [place] Cells PT INR VBG pH VBG pCO2 VBG pO2 VBG HCO3 VBG O2 Saturation VBG Base Excess Anion Gap Estim Creat Clear Calc Estimated GFR POC Glucose Random Glucose Calcium Total Bilirubin AST ALT Alkaline Phosphatase Total Protein Albumin Hep B Core Total Ab Reactive Hep B Core IgM Ab Cancelled Blood Type A Positive Antibody Screen NEGATIVE Crossmatch See Detail 09/08/23 09/08/23 09/08/23 11:13 17:55 20:26 MCV 94.1 MCH 32.3 MCHC 34.3 RDW 17.2 H Plt Count 279 MPV 9.4 Immature Gran % (Auto) Cancelled Neut % (Auto) Cancelled Lymph % (Auto) Cancelled [place] % (Auto) Cancelled Eos % (Auto) Cancelled Baso % (Auto) Cancelled Lymph # (Auto) Cancelled [place] # (Auto) Cancelled Eos # (Auto) Cancelled Baso # (Auto) Cancelled Abs Immat Gran (auto) Cancelled Absolute Neuts (auto) Cancelled Absolute Nucleated RBC 0.440 H Nucleated RBC % (auto) 2.6 H Neutrophils % (Manual) 72 Band Neutrophils % 3 Lymphocytes % (Manual) 18 L Monocytes % (Manual) 5 Eosinophils % (Manual) 1 Metamyelocytes % 1 Abs Neuts (Manual) 12.9 H Lymphocytes # (Manual) 3.1 Monocytes # (Manual) 0.9 Eosinophils # (Manual) 0.2 Metamyelocytes # 0.2 Nucleated RBCs 3 H Platelet Estimate NORMAL Plt Morphology Comment NORMAL RBC Morphology NORMAL Polychromasia 2+ (3-5) Hypochromasia Basophilic Stippling 1+ (0-2) Microcytosis Spherocytes Tear Drop Cells [place] Cells PT INR VBG pH VBG pCO2 VBG pO2 VBG HCO3 VBG O2 Saturation VBG Base Excess Anion Gap 17 Estim Creat Clear Calc 20.9 Estimated GFR 16 POC Glucose 287 H 339 H Random Glucose 367 H* Calcium 9.4 D Total Bilirubin 1.6 H AST 677 H ALT 208 H Alkaline Phosphatase 63 Total Protein 6.4 L Albumin 3.2 L Hep B Core Total Ab Hep B Core IgM Ab Blood Type Antibody Screen Crossmatch 09/08/23 09/09/23 09/09/23 23:46 02:04 05:07 MCV MCH MCHC RDW Plt Count MPV Immature Gran % (Auto) Neut % (Auto) Lymph % (Auto) [place] % (Auto) Eos % (Auto) Baso % (Auto) Lymph # (Auto) [place] # (Auto) Eos # (Auto) Baso # (Auto) Abs Immat Gran (auto) Absolute Neuts (auto) Absolute Nucleated RBC Nucleated RBC % (auto) Neutrophils % (Manual) Band Neutrophils % Lymphocytes % (Manual) Monocytes % (Manual) Eosinophils % (Manual) Metamyelocytes % Abs Neuts (Manual) Lymphocytes # (Manual) Monocytes # (Manual) Eosinophils # (Manual) Metamyelocytes # Nucleated RBCs Platelet Estimate Plt Morphology Comment RBC Morphology Polychromasia Hypochromasia Basophilic Stippling Microcytosis Spherocytes Tear Drop Cells [place] Cells PT 12.4 INR 1.0 VBG pH 7.31 L VBG pCO2 41 VBG pO2 43 VBG HCO3 21 L VBG O2 Saturation 76.0 VBG Base Excess -4.4 Anion Gap Estim Creat Clear Calc Estimated GFR POC Glucose 314 H Random Glucose Calcium Total Bilirubin AST ALT Alkaline Phosphatase Total Protein Albumin Hep B Core Total Ab Hep B Core IgM Ab Blood Type Antibody Screen Crossmatch 09/09/23 09/09/23 09/09/23 05:10 05:42 05:55 MCV 93.7 MCH 30.9 MCHC 32.9 RDW 16.5 H Plt Count 200 D MPV 9.3 L Immature Gran % (Auto) Cancelled Neut % (Auto) Cancelled Lymph % (Auto) Cancelled [place] % (Auto) Cancelled Eos % (Auto) Cancelled Baso % (Auto) Cancelled Lymph # (Auto) Cancelled [place] # (Auto) Cancelled Eos # (Auto) Cancelled Baso # (Auto) Cancelled Abs Immat Gran (auto) Cancelled Absolute Neuts (auto) Cancelled Absolute Nucleated RBC 0.400 H Nucleated RBC % (auto) 3.3 H Neutrophils % (Manual) 73 Band Neutrophils % 10 H Lymphocytes % (Manual) 13 L Monocytes % (Manual) 4 Eosinophils % (Manual) Metamyelocytes % Abs Neuts (Manual) 10.0 H Lymphocytes # (Manual) 1.6 Monocytes # (Manual) 0.5 Eosinophils # (Manual) Metamyelocytes # Nucleated RBCs 3 H Platelet Estimate NORMAL Plt Morphology Comment NORMAL RBC Morphology NOTED Polychromasia 2+ (3-5) Hypochromasia 1+ (5-14) Basophilic Stippling Microcytosis 1+ (5-14) Spherocytes 1+ (0-2) Tear Drop Cells 1+ (0-2) [place] Cells 1+ (0-2) PT INR VBG pH VBG pCO2 VBG pO2 VBG HCO3 VBG O2 Saturation VBG Base Excess Anion Gap 21 H Estim Creat Clear Calc 20.1 Estimated GFR 15 POC Glucose 315 H Random Glucose 331 H Calcium 8.4 D Total Bilirubin 2.5 H AST 389 H ALT 149 H Alkaline Phosphatase 54 Total Protein 6.3 L Albumin 3.5 Hep B Core Total Ab Hep B Core IgM Ab Blood Type Antibody Screen Crossmatch 09/09/23 06:43 MCV MCH MCHC RDW Plt Count MPV Immature Gran % (Auto) Neut % (Auto) Lymph % (Auto) [place] % (Auto) Eos % (Auto) Baso % (Auto) Lymph # (Auto) [place] # (Auto) Eos # (Auto) Baso # (Auto) Abs Immat Gran (auto) Absolute Neuts (auto) Absolute Nucleated RBC Nucleated RBC % (auto) Neutrophils % (Manual) Band Neutrophils % Lymphocytes % (Manual) Monocytes % (Manual) Eosinophils % (Manual) Metamyelocytes % Abs Neuts (Manual) Lymphocytes # (Manual) Monocytes # (Manual) Eosinophils # (Manual) Metamyelocytes # Nucleated RBCs Platelet Estimate Plt Morphology Comment RBC Morphology Polychromasia Hypochromasia Basophilic Stippling Microcytosis Spherocytes Tear Drop Cells [place] Cells PT INR VBG pH VBG pCO2 VBG pO2 VBG HCO3 VBG O2 Saturation VBG Base Excess Anion Gap Estim Creat Clear Calc Estimated GFR POC Glucose Random Glucose Calcium Total Bilirubin AST ALT Alkaline Phosphatase Total Protein Albumin Hep B Core Total Ab Hep B Core IgM Ab Blood Type A Positive Antibody Screen NEGATIVE Crossmatch Microbiology Microbiology Results: Microbiology 09/06/23 20:20 Blood Culture - Preliminary Blood - Venous No growth after 48 hours. 09/06/23 20:20 Blood Culture - Preliminary Blood - Venous No growth after 48 hours. Procedures Date of Service Date of Service: 09/09/23 Progress Note: A&P Assessment and plan (1) Leaking PEG tube: Status: Acute Plan 53 year old female with multiple acute medical problems who initially underwent PEG tube placement 08/11, PEG tube subsequently dislodged 1 week later however was able to be replaced by 18 CHINO G tube with some leaking from around G tube which resolved but now has recurred. G tube in place this morning, abd benign. G tube was pulled tight and bolster placed snug to skin. Balloon was inflated with 2cc saline more. Can resume tube feeds. If continues to leak, can attempt to place larger CHINO G tube as unfortunately larger tract was created with removal of original tube and therefore tube prone to leakage. Time Spent With Patient Time: Total time managing care of this patient today ____ minutes. Quality Stroke Does the patient have a stroke diagnosis?: No VTE Prior VTE?: Yes Approximate Date of Prior VTE: 08/27/23 VTE Risk Level:: Medical - moderate - high VTE Device Contraindication: Treatment Not Indicated VTE Drug Contraindication: N/A - Med Ordered
[2023-09-09 10:03] LABS: Magnesium 2.3 mg/dL (1.6-2.6); Phosphorus 8.7 mg/dL (2.7-4.5)
[2023-09-09] MEDS: dexmedeTOMIDidine HCL/NS 400 MCG/100 ML INFUS..BTL 25.05 MCG IVCONT (10:32)
--- NOTE | 2023-09-09 10:38 | PM.PNNEP ---
Subjective Subjective Date of Service: 09/09/23 Interval history: Events noted. Has persistent hyperkalemia. Physical Exam Vital Signs: Vital Signs: Last Vital Signs Temp 98.8 F 09/09/23 10:00 Pulse 90 09/09/23 10:00 Resp 30 H 09/09/23 10:00 BP 92/52 L 09/09/23 10:00 Pulse Ox 96 09/09/23 10:00 O2 Del Method Mechanical Ventil ation 09/09/23 10:00 O2 Flow Rate 30 09/06/23 16:57 FiO2 30 09/09/23 10:00 BMI result Body Mass Index 39.4 Const: General: ill appearing Neck: Neck: Yes supple Resp: Auscultation: clear to auscultation bilaterally Cardio: Palpation: no palpable S3 Heart sounds: no rubs GI: Palpation (GI): Soft to palpation Auscultation: normal bowel sounds Neuro: Motor exam (neuro): no asterixis Objective Data Labs 09/09/23 05:42 09/09/23 05:10 Labs: Laboratory Results - last 24 hr 09/06/23 09/06/23 09/08/23 05:30 17:56 11:13 WBC RBC Hgb Hct MCV MCH MCHC RDW Plt Count MPV Immature Gran % (Auto) Neut % (Auto) Lymph % (Auto) [place] % (Auto) Eos % (Auto) Baso % (Auto) Lymph # (Auto) [place] # (Auto) Eos # (Auto) Baso # (Auto) Abs Immat Gran (auto) Absolute Neuts (auto) Absolute Nucleated RBC Nucleated RBC % (auto) Neutrophils % (Manual) Band Neutrophils % Lymphocytes % (Manual) Monocytes % (Manual) Eosinophils % (Manual) Metamyelocytes % Abs Neuts (Manual) Lymphocytes # (Manual) Monocytes # (Manual) Eosinophils # (Manual) Metamyelocytes # Nucleated RBCs Platelet Estimate Plt Morphology Comment RBC Morphology Polychromasia Hypochromasia Basophilic Stippling Microcytosis Spherocytes Tear Drop Cells [place] Cells PT INR VBG pH VBG pCO2 VBG pO2 VBG HCO3 VBG O2 Saturation VBG Base Excess Sodium Potassium Chloride Carbon Dioxide Anion Gap BUN Creatinine Estim Creat Clear Calc Estimated GFR POC Glucose 287 H Random Glucose Calcium Phosphorus Magnesium Total Bilirubin AST ALT Alkaline Phosphatase Total Protein Albumin Hep B Core Total Ab Reactive Hep B Core IgM Ab Cancelled Blood Type A Positive Antibody Screen NEGATIVE Crossmatch See Detail 09/08/23 09/08/23 09/08/23 17:55 20:26 23:46 WBC 17.2 H RBC 2.20 L Hgb 7.1 L Hct 20.7 L* MCV 94.1 MCH 32.3 MCHC 34.3 RDW 17.2 H Plt Count 279 MPV 9.4 Immature Gran % (Auto) Cancelled Neut % (Auto) Cancelled Lymph % (Auto) Cancelled [place] % (Auto) Cancelled Eos % (Auto) Cancelled Baso % (Auto) Cancelled Lymph # (Auto) Cancelled [place] # (Auto) Cancelled Eos # (Auto) Cancelled Baso # (Auto) Cancelled Abs Immat Gran (auto) Cancelled Absolute Neuts (auto) Cancelled Absolute Nucleated RBC 0.440 H Nucleated RBC % (auto) 2.6 H Neutrophils % (Manual) 72 Band Neutrophils % 3 Lymphocytes % (Manual) 18 L Monocytes % (Manual) 5 Eosinophils % (Manual) 1 Metamyelocytes % 1 Abs Neuts (Manual) 12.9 H Lymphocytes # (Manual) 3.1 Monocytes # (Manual) 0.9 Eosinophils # (Manual) 0.2 Metamyelocytes # 0.2 Nucleated RBCs 3 H Platelet Estimate NORMAL Plt Morphology Comment NORMAL RBC Morphology NORMAL Polychromasia 2+ (3-5) Hypochromasia Basophilic Stippling 1+ (0-2) Microcytosis Spherocytes Tear Drop Cells [place] Cells PT INR VBG pH VBG pCO2 VBG pO2 VBG HCO3 VBG O2 Saturation VBG Base Excess Sodium 127 L Potassium 5.4 H Chloride 95 L Carbon Dioxide 20 L Anion Gap 17 BUN 38 H Creatinine 3.12 H Estim Creat Clear Calc 20.9 Estimated GFR 16 POC Glucose 339 H 314 H Random Glucose 367 H* Calcium 9.4 D Phosphorus Magnesium Total Bilirubin 1.6 H AST 677 H ALT 208 H Alkaline Phosphatase 63 Total Protein 6.4 L Albumin 3.2 L Hep B Core Total Ab Hep B Core IgM Ab Blood Type Antibody Screen Crossmatch 09/09/23 09/09/23 09/09/23 01:01 02:04 05:07 WBC RBC Hgb 6.0 L* Hct 17.7 L* MCV MCH MCHC RDW Plt Count MPV Immature Gran % (Auto) Neut % (Auto) Lymph % (Auto) [place] % (Auto) Eos % (Auto) Baso % (Auto) Lymph # (Auto) [place] # (Auto) Eos # (Auto) Baso # (Auto) Abs Immat Gran (auto) Absolute Neuts (auto) Absolute Nucleated RBC Nucleated RBC % (auto) Neutrophils % (Manual) Band Neutrophils % Lymphocytes % (Manual) Monocytes % (Manual) Eosinophils % (Manual) Metamyelocytes % Abs Neuts (Manual) Lymphocytes # (Manual) Monocytes # (Manual) Eosinophils # (Manual) Metamyelocytes # Nucleated RBCs Platelet Estimate Plt Morphology Comment RBC Morphology Polychromasia Hypochromasia Basophilic Stippling Microcytosis Spherocytes Tear Drop Cells [place] Cells PT 12.4 INR 1.0 VBG pH 7.31 L VBG pCO2 41 VBG pO2 43 VBG HCO3 21 L VBG O2 Saturation 76.0 VBG Base Excess -4.4 Sodium Potassium Chloride Carbon Dioxide Anion Gap BUN Creatinine Estim Creat Clear Calc Estimated GFR POC Glucose Random Glucose Calcium Phosphorus Magnesium Total Bilirubin AST ALT Alkaline Phosphatase Total Protein Albumin Hep B Core Total Ab Hep B Core IgM Ab Blood Type Antibody Screen Crossmatch 09/09/23 09/09/23 09/09/23 05:10 05:42 05:55 WBC 12.1 H RBC 2.69 L D Hgb 8.3 L D Hct 25.2 L D MCV 93.7 MCH 30.9 MCHC 32.9 RDW 16.5 H Plt Count 200 D MPV 9.3 L Immature Gran % (Auto) Cancelled Neut % (Auto) Cancelled Lymph % (Auto) Cancelled [place] % (Auto) Cancelled Eos % (Auto) Cancelled Baso % (Auto) Cancelled Lymph # (Auto) Cancelled [place] # (Auto) Cancelled Eos # (Auto) Cancelled Baso # (Auto) Cancelled Abs Immat Gran (auto) Cancelled Absolute Neuts (auto) Cancelled Absolute Nucleated RBC 0.400 H Nucleated RBC % (auto) 3.3 H Neutrophils % (Manual) 73 Band Neutrophils % 10 H Lymphocytes % (Manual) 13 L Monocytes % (Manual) 4 Eosinophils % (Manual) Metamyelocytes % Abs Neuts (Manual) 10.0 H Lymphocytes # (Manual) 1.6 Monocytes # (Manual) 0.5 Eosinophils # (Manual) Metamyelocytes # Nucleated RBCs 3 H Platelet Estimate NORMAL Plt Morphology Comment NORMAL RBC Morphology NOTED Polychromasia 2+ (3-5) Hypochromasia 1+ (5-14) Basophilic Stippling Microcytosis 1+ (5-14) Spherocytes 1+ (0-2) Tear Drop Cells 1+ (0-2) [place] Cells 1+ (0-2) PT INR VBG pH VBG pCO2 VBG pO2 VBG HCO3 VBG O2 Saturation VBG Base Excess Sodium 129 L Potassium 5.9 H Chloride 94 L Carbon Dioxide 20 L Anion Gap 21 H BUN 43 H Creatinine 3.26 H Estim Creat Clear Calc 20.1 Estimated GFR 15 POC Glucose 315 H Random Glucose 331 H Calcium 8.4 D Phosphorus 8.7 H Magnesium 2.3 Total Bilirubin 2.5 H AST 389 H ALT 149 H Alkaline Phosphatase 54 Total Protein 6.3 L Albumin 3.5 Hep B Core Total Ab Hep B Core IgM Ab Blood Type Antibody Screen Crossmatch 09/09/23 06:43 WBC RBC Hgb Hct MCV MCH MCHC RDW Plt Count MPV Immature Gran % (Auto) Neut % (Auto) Lymph % (Auto) [place] % (Auto) Eos % (Auto) Baso % (Auto) Lymph # (Auto) [place] # (Auto) Eos # (Auto) Baso # (Auto) Abs Immat Gran (auto) Absolute Neuts (auto) Absolute Nucleated RBC Nucleated RBC % (auto) Neutrophils % (Manual) Band Neutrophils % Lymphocytes % (Manual) Monocytes % (Manual) Eosinophils % (Manual) Metamyelocytes % Abs Neuts (Manual) Lymphocytes # (Manual) Monocytes # (Manual) Eosinophils # (Manual) Metamyelocytes # Nucleated RBCs Platelet Estimate Plt Morphology Comment RBC Morphology Polychromasia Hypochromasia Basophilic Stippling Microcytosis Spherocytes Tear Drop Cells [place] Cells PT INR VBG pH VBG pCO2 VBG pO2 VBG HCO3 VBG O2 Saturation VBG Base Excess Sodium Potassium Chloride Carbon Dioxide Anion Gap BUN Creatinine Estim Creat Clear Calc Estimated GFR POC Glucose Random Glucose Calcium Phosphorus Magnesium Total Bilirubin AST ALT Alkaline Phosphatase Total Protein Albumin Hep B Core Total Ab Hep B Core IgM Ab Blood Type A Positive Antibody Screen NEGATIVE Crossmatch Microbiology Microbiology Results: Microbiology 09/06/23 20:20 Blood - Venous Blood Culture - Preliminary No growth after 48 hours. 09/06/23 20:20 Blood - Venous Blood Culture - Preliminary No growth after 48 hours. 08/26/23 14:13 Blood - Venous Blood Culture - Final No growth after 5 days. 08/26/23 14:13 Blood - Venous Blood Culture - Final No growth after 5 days. 08/26/23 11:25 Tracheal Aspirate Gram Stain - Final 08/26/23 11:25 Tracheal Aspirate Sputum Culture - Final Corynebacterium species 08/22/23 11:35 Neck Gram Stain - Final 08/22/23 11:35 Neck Routine Culture - Final Group F Streptococcus 08/19/23 09:51 Blood - Venous Blood Culture - Final No growth after 5 days. 08/19/23 09:51 Blood - Venous Blood Culture - Final No growth after 5 days. 08/21/23 17:34 Tracheal Aspirate Gram Stain - Final 08/21/23 17:34 Tracheal Aspirate Sputum Culture - Final Corynebacterium species 08/22/23 11:42 Urine Catheterized - Adan Catheter Urine Culture - Final No growth. 08/03/23 16:38 Sputum - Expectorated Gram Stain - Final 08/03/23 16:38 Sputum - Expectorated Sputum Culture - Final Aspergillus fumigatus 08/02/23 14:20 Blood - Venous Blood Culture - Final No growth after 5 days. 08/02/23 13:36 Blood - Venous Blood Culture - Final No growth after 5 days. Procedures Date of Service Date of Service: 09/09/23 Assessment & Plan Assessment and plan (1) Acute renal failure: Status: Resolved Plan 52-year-old woman with multiple medical problems who has had essentially normal renal function with a serum creatinine of 0.6 mg/dL about 8 months ago. currently has acute kidney injury. The different diagnosis for acute kidney injury would include hypoperfusion However the urine sediments reveal some RBCs and protein therefore glomerular nephritis or interstitial nephritis should be considered. Recent imaging study did not reveal any significant obstruction. Recommendations. Optimize blood pressure. Avoid hypotension. Keep intake more than output. Monitor urine output. We will dialyze again today due to hyperkalemia Watch UO We will follow along with the team. Time Spent With Patient Time: Total time managing care of this patient today ____ minutes. Progress Note: Quality Stroke Does the patient have a stroke diagnosis?: No
[2023-09-09 11:22] LABS: Glucose, Whole Blood 266 mg/dL (60-115)
[2023-09-09] MEDS: LORazepam 2 MG/ML VIAL 0.5 MG IVPUSH (12:22)
[2023-09-09] MEDS: Midazolam HCl/NS 50 MG/50 ML PLAST..BAG IVCONT (14:03)
[2023-09-09] MEDS: fentaNYL citrate/NS 1,000 MCG/100 ML PLAST..BAG 7.5 MCG IVCONT (14:43)
--- NOTE | 2023-09-09 14:48 | PC.RT ---
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 pt placed on Hfnc 21% with 40l for comfort as pt is tachypnic. family at bedside.
--- NOTE | 2023-09-09 15:44 | PM.CCPN ---
Subjective Subjective Date of Service: 09/09/23 Critical Care Time (minutes): 35 Comment: Patient was still on ventilator support this morning, needed vasopressor support and significantly encephalopathic She was on Precedex drip but still not following any commands We had a detailed goals of care discussion with patient's family explained them that the patient is on ventilator for over 2 months now, she had very poor respiratory reserve prior to hospitalization. Despite being getting maximum care for the past 2 months her condition is continuing to worsen and is currently having multiorgan failure, she is in shock needing vasopressor support, renal failure needing hemodialysis, encephalopathic not following commands on top of ventilator support for respiration. Overall her prognosis is very poor and we do not see a way for her getting out of the hospital. She also has a retroperitoneal bleed needing multiple transfusions. All the questions from the family was adequately answered, we also had stage driver support during this conversation. Family agreed to transition into comfort care. Physical Exam Vital Signs: Vital Signs: Last Vital Signs Temp 99.5 F 09/09/23 14:00 Pulse 113 H 09/09/23 15:00 Resp 28 H 09/09/23 14:00 BP 91/50 L 09/09/23 15:00 Pulse Ox 69 L 09/09/23 15:00 O2 Del Method Mechanical Ventil ation 09/09/23 14:00 O2 Flow Rate 30 09/06/23 16:57 FiO2 21 09/09/23 15:25 BMI result Body Mass Index 39.4 General: acute distress, ill appearing and tired appearing Nutritional Appearance: well nourished and overweight Eyes: appearance normal, both eyes and all related structures; Alignment and Position: alignment normal and position normal Neck: No lymphadenopathy, no thyromegaly Resp: bilateral air entry equal, occasional added sounds present Cardio: Regular rate, regular rhythm; Heart sounds: S1 normal heart sound present and S2 normal heart sound present GI: soft, nontender, no guarding, no hepatosplenomegaly : bladder normal to inspection, bladder normal to palpation, no renal angle tenderness Skin: no rashes or lesions noted and elasticity normal Neuro: Not following any commands, no focal deficits s Objective Data Labs 09/09/23 05:42 09/09/23 05:10 Labs: Laboratory Results - last 24 hr 09/06/23 09/08/23 09/08/23 05:30 17:55 20:26 WBC 17.2 H RBC 2.20 L Hgb 7.1 L Hct 20.7 L* MCV 94.1 MCH 32.3 MCHC 34.3 RDW 17.2 H Plt Count 279 MPV 9.4 Immature Gran % (Auto) Cancelled Neut % (Auto) Cancelled Lymph % (Auto) Cancelled Lyman % (Auto) Cancelled Eos % (Auto) Cancelled Baso % (Auto) Cancelled Lymph # (Auto) Cancelled Lyman # (Auto) Cancelled Eos # (Auto) Cancelled Baso # (Auto) Cancelled Abs Immat Gran (auto) Cancelled Absolute Neuts (auto) Cancelled Absolute Nucleated RBC 0.440 H Nucleated RBC % (auto) 2.6 H Neutrophils % (Manual) 72 Band Neutrophils % 3 Lymphocytes % (Manual) 18 L Monocytes % (Manual) 5 Eosinophils % (Manual) 1 Metamyelocytes % 1 Abs Neuts (Manual) 12.9 H Lymphocytes # (Manual) 3.1 Monocytes # (Manual) 0.9 Eosinophils # (Manual) 0.2 Metamyelocytes # 0.2 Nucleated RBCs 3 H Platelet Estimate NORMAL Plt Morphology Comment NORMAL RBC Morphology NORMAL Polychromasia 2+ (3-5) Hypochromasia Basophilic Stippling 1+ (0-2) Microcytosis Spherocytes Tear Drop Cells [place] Cells PT INR VBG pH VBG pCO2 VBG pO2 VBG HCO3 VBG O2 Saturation VBG Base Excess Sodium 127 L Potassium 5.4 H Chloride 95 L Carbon Dioxide 20 L Anion Gap 17 BUN 38 H Creatinine 3.12 H Estim Creat Clear Calc 20.9 Estimated GFR 16 POC Glucose 339 H Random Glucose 367 H* Calcium 9.4 D Phosphorus Magnesium Total Bilirubin 1.6 H AST 677 H ALT 208 H Alkaline Phosphatase 63 Total Protein 6.4 L Albumin 3.2 L Blood Type A Positive Antibody Screen NEGATIVE Crossmatch See Detail 09/08/23 09/09/23 09/09/23 23:46 01:01 02:04 WBC RBC Hgb 6.0 L* Hct 17.7 L* MCV MCH MCHC RDW Plt Count MPV Immature Gran % (Auto) Neut % (Auto) Lymph % (Auto) Lyman % (Auto) Eos % (Auto) Baso % (Auto) Lymph # (Auto) Lyman # (Auto) Eos # (Auto) Baso # (Auto) Abs Immat Gran (auto) Absolute Neuts (auto) Absolute Nucleated RBC Nucleated RBC % (auto) Neutrophils % (Manual) Band Neutrophils % Lymphocytes % (Manual) Monocytes % (Manual) Eosinophils % (Manual) Metamyelocytes % Abs Neuts (Manual) Lymphocytes # (Manual) Monocytes # (Manual) Eosinophils # (Manual) Metamyelocytes # Nucleated RBCs Platelet Estimate Plt Morphology Comment RBC Morphology Polychromasia Hypochromasia Basophilic Stippling Microcytosis Spherocytes Tear Drop Cells [place] Cells PT 12.4 INR 1.0 VBG pH VBG pCO2 VBG pO2 VBG HCO3 VBG O2 Saturation VBG Base Excess Sodium Potassium Chloride Carbon Dioxide Anion Gap BUN Creatinine Estim Creat Clear Calc Estimated GFR POC Glucose 314 H Random Glucose Calcium Phosphorus Magnesium Total Bilirubin AST ALT Alkaline Phosphatase Total Protein Albumin Blood Type Antibody Screen Crossmatch 09/09/23 09/09/23 09/09/23 05:07 05:10 05:42 WBC 12.1 H RBC 2.69 L D Hgb 8.3 L D Hct 25.2 L D MCV 93.7 MCH 30.9 MCHC 32.9 RDW 16.5 H Plt Count 200 D MPV 9.3 L Immature Gran % (Auto) Cancelled Neut % (Auto) Cancelled Lymph % (Auto) Cancelled Lyman % (Auto) Cancelled Eos % (Auto) Cancelled Baso % (Auto) Cancelled Lymph # (Auto) Cancelled Lyman # (Auto) Cancelled Eos # (Auto) Cancelled Baso # (Auto) Cancelled Abs Immat Gran (auto) Cancelled Absolute Neuts (auto) Cancelled Absolute Nucleated RBC 0.400 H Nucleated RBC % (auto) 3.3 H Neutrophils % (Manual) 73 Band Neutrophils % 10 H Lymphocytes % (Manual) 13 L Monocytes % (Manual) 4 Eosinophils % (Manual) Metamyelocytes % Abs Neuts (Manual) 10.0 H Lymphocytes # (Manual) 1.6 Monocytes # (Manual) 0.5 Eosinophils # (Manual) Metamyelocytes # Nucleated RBCs 3 H Platelet Estimate NORMAL Plt Morphology Comment NORMAL RBC Morphology NOTED Polychromasia 2+ (3-5) Hypochromasia 1+ (5-14) Basophilic Stippling Microcytosis 1+ (5-14) Spherocytes 1+ (0-2) Tear Drop Cells 1+ (0-2) [place] Cells 1+ (0-2) PT INR VBG pH 7.31 L VBG pCO2 41 VBG pO2 43 VBG HCO3 21 L VBG O2 Saturation 76.0 VBG Base Excess -4.4 Sodium 129 L Potassium 5.9 H Chloride 94 L Carbon Dioxide 20 L Anion Gap 21 H BUN 43 H Creatinine 3.26 H Estim Creat Clear Calc 20.1 Estimated GFR 15 POC Glucose Random Glucose 331 H Calcium 8.4 D Phosphorus 8.7 H Magnesium 2.3 Total Bilirubin 2.5 H AST 389 H ALT 149 H Alkaline Phosphatase 54 Total Protein 6.3 L Albumin 3.5 Blood Type Antibody Screen Crossmatch 09/09/23 09/09/23 09/09/23 05:55 06:43 11:19 WBC RBC Hgb Hct MCV MCH MCHC RDW Plt Count MPV Immature Gran % (Auto) Neut % (Auto) Lymph % (Auto) Lyman % (Auto) Eos % (Auto) Baso % (Auto) Lymph # (Auto) Lyman # (Auto) Eos # (Auto) Baso # (Auto) Abs Immat Gran (auto) Absolute Neuts (auto) Absolute Nucleated RBC Nucleated RBC % (auto) Neutrophils % (Manual) Band Neutrophils % Lymphocytes % (Manual) Monocytes % (Manual) Eosinophils % (Manual) Metamyelocytes % Abs Neuts (Manual) Lymphocytes # (Manual) Monocytes # (Manual) Eosinophils # (Manual) Metamyelocytes # Nucleated RBCs Platelet Estimate Plt Morphology Comment RBC Morphology Polychromasia Hypochromasia Basophilic Stippling Microcytosis Spherocytes Tear Drop Cells [place] Cells PT INR VBG pH VBG pCO2 VBG pO2 VBG HCO3 VBG O2 Saturation VBG Base Excess Sodium Potassium Chloride Carbon Dioxide Anion Gap BUN Creatinine Estim Creat Clear Calc Estimated GFR POC Glucose 315 H 266 H Random Glucose Calcium Phosphorus Magnesium Total Bilirubin AST ALT Alkaline Phosphatase Total Protein Albumin Blood Type A Positive Antibody Screen NEGATIVE Crossmatch Microbiology Microbiology Results: Microbiology 09/06/23 20:20 Blood - Venous Blood Culture - Preliminary No growth after 48 hours. 09/06/23 20:20 Blood - Venous Blood Culture - Preliminary No growth after 48 hours. 08/26/23 14:13 Blood - Venous Blood Culture - Final No growth after 5 days. 08/26/23 14:13 Blood - Venous Blood Culture - Final No growth after 5 days. 08/26/23 11:25 Tracheal Aspirate Gram Stain - Final 08/26/23 11:25 Tracheal Aspirate Sputum Culture - Final Corynebacterium species 08/22/23 11:35 Neck Gram Stain - Final 08/22/23 11:35 Neck Routine Culture - Final Group F Streptococcus 08/19/23 09:51 Blood - Venous Blood Culture - Final No growth after 5 days. 08/19/23 09:51 Blood - Venous Blood Culture - Final No growth after 5 days. 08/21/23 17:34 Tracheal Aspirate Gram Stain - Final 08/21/23 17:34 Tracheal Aspirate Sputum Culture - Final Corynebacterium species 08/22/23 11:42 Urine Catheterized - Adan Catheter Urine Culture - Final No growth. 08/03/23 16:38 Sputum - Expectorated Gram Stain - Final 08/03/23 16:38 Sputum - Expectorated Sputum Culture - Final Aspergillus fumigatus 08/02/23 14:20 Blood - Venous Blood Culture - Final No growth after 5 days. 08/02/23 13:36 Blood - Venous Blood Culture - Final No growth after 5 days. Progress Note: A&P Assessment and plan (1) VERONIKA (acute kidney injury): Status: Acute (2) Positive sputum culture for Aspergillus: Status: Acute (3) Status post insertion of percutaneous endoscopic gastrostomy (PEG) tube: Status: Acute (4) Encephalopathy acute: Status: Acute (5) Acute exacerbation of chronic obstructive airways disease: Status: Acute (6) Acute on chronic respiratory failure with hypoxia and hypercapnia: Status: Acute Plan We had a detailed goals of care discussion with patient's family explained them that the patient is on ventilator for over 2 months now, she had very poor respiratory reserve prior to hospitalization. Despite being getting maximum care for the past 2 months her condition is continuing to worsen and is currently having multiorgan failure, she is in shock needing vasopressor support, renal failure needing hemodialysis, encephalopathic not following commands on top of ventilator support for respiration. Overall her prognosis is very poor and we do not see a way for her getting out of the hospital. She also has a retroperitoneal bleed needing multiple transfusions. All the questions from the family was adequately answered, we also had stage driver support during this conversation. Family agreed to transition into comfort care. Patient is taken off of ventilator support, Levophed drip turned off. Patient is started on Versed drip, fentanyl drip for comfort. We will continue with comfort measures only. We will discontinue all other orders Total time spent on goals of care discussion is about 35 minutes. Quality Stroke Does the patient have a stroke diagnosis?: No VTE Prior VTE?: Yes Approximate Date of Prior VTE: 08/27/23 VTE Risk Level:: Medical - moderate - high VTE Device Contraindication: Treatment Not Indicated VTE Drug Contraindication: N/A - Med Ordered
--- NOTE | 2023-09-09 15:53 | PC.NURSE ---
LENORA was contacted about this patient at 1155. This engineering writer spoke with Deysi. Referral number [id number]. Patient was declined over phone at [phone]. Deysi requested that LENORA be updated with LIVAN.
--- NOTE | 2023-09-09 15:55 | PC.NURSE ---
Per family/HCP request, pt was removed from ventilator at 1433. Comfort measures begun at this time per MAY. RT, family at bedside.
--- NOTE | 2023-09-09 16:16 | PM.DDS ---
Discharge Sum: Prov Provider Primary care physician: Kelli Benavides MD Consults: 08/02/23 22:04 Consult to Pulmonology Routine Consulting Provider: [facility] Reason for consultation: Acute on chronic hypercapnic + hypoxic respiratory failure Has provider been notified: No 08/11/23 11:34 Consult to Thoracic Surgery Routine Consulting Provider: [facility] Callahan Reason for consultation: Evaluate for tracheostomy/gastrostomy Has provider been notified: No 08/12/23 16:00 Consult to Wound Care Routine Reason for consultation: stage 1? on coccyx 08/21/23 09:22 Consult to Infectious Diseases Routine Consulting Provider: [facility] Reason for consultation: aspergillus in foul smelling sputum Has provider been notified: No 08/27/23 03:10 Consult to Wound Care Routine Reason for consultation: MDPI at trach site 09/06/23 14:25 Consult to Nephrology Stat Consulting Provider: [facility] Reason for consultation: Urgent hemodialysis for VERONIKA/hyperkalemia Has provider been notified: No 09/08/23 16:04 Consult to General Surgery Routine Consulting Provider: [facility] Reason for consultation: leak around PEG tube Discharge Sum: Diag Contributing Factors (1) VERONIKA (acute kidney injury): (2) Positive sputum culture for Aspergillus: (3) Status post insertion of percutaneous endoscopic gastrostomy (PEG) tube: (4) Encephalopathy acute: (5) Acute exacerbation of chronic obstructive airways disease: (6) Acute on chronic respiratory failure with hypoxia and hypercapnia: Discharge Sum: Summary Date and Time Date of admission: 08/02/23 21:13 Date of : 09/09/23 Time of : 16:15 Summary Details: 53 year old female with history of chronic hypoxic and hypercarbic respiratory failure on 2 L nasal cannula and BiPAP at night, CHITO/OHS/asthma/COPD overlap, chronic methadone use, diabetes, recurrent admissions for respiratory failure was admitted to the floor on 08/02/2023 and on 08/05/2023 patient became extremely lethargic, unresponsive while on BiPAP due to worsening hypercapnic respiratory failure needing intubation and ventilator support. Given patient's chronic respiratory failure needing multiple admissions and failed extubation on 08/11/2023 she underwent tracheostomy and PEG tube placement on 08/12/2023. Hospital course further complicated by retroperitoneal bleed, septic shock needing vasopressor support, acute renal failure needing renal replacement therapy, severe encephalopathy. We had a detailed goals of care discussion with patient's family explained them that the patient is on ventilator for over 2 months now, she had very poor respiratory reserve prior to hospitalization. Despite being getting maximum care for the past 2 months her condition is continuing to worsen and is currently having multiorgan failure, she is in shock needing vasopressor support, renal failure needing hemodialysis, encephalopathic not following commands on top of ventilator support for respiration. Overall her prognosis is very poor and we do not see a way for her getting out of the hospital. She also has a retroperitoneal bleed needing multiple transfusions. All the questions from the family was adequately answered, we also had buyer renter support during this conversation. Family agreed to transition into comfort care. Patient is taken off of ventilator support, Levophed drip turned off. Patient is started on Versed drip, fentanyl drip for comfort. We will continue with comfort measures only. Additional Data Confirmation of as documented by pronouncing clinician: no pulse, no respirations, no heart sounds and pupils fixed and dilated Family: at bedside Attending/PCP notified?: Yes Attending physician: Puneet Castellanos MD Was code activated?: No Autopsy requested?: No license examiner notified?: No Organ bank notified?: No Advance directives: No Hospice patient?: No
[2023-09-10 23:39] LABS: Haptoglobin 263 mg/dL (43-212)
== END 2023-09-09 16:15 | disposition expired | DRG 5 ==
LOC: HO.ED 16:16 → HO.EDOVER 21:14 → HO.IMC 08-03 05:56 → HO.ICU 08-05 16:06
PROVIDERS: Hospitalist; Internal Medicine; Internal Medicine Critical Care Medicine; Internal Medicine Hypertension Specialist; Internal Medicine Pulmonary Disease; Nurse Practitioner Family; Physician Assistant Medical; Registered Nurse Community Health; Surgery; Admitting Provider Internal Medicine; Emergency Provider Internal Medicine; PCP Family Medicine; Referring Provider Family Medicine; Visit Provider Internal Medicine Critical Care Medicine
PROC: 0DH63UZ Insertion of Feeding Device into Stomach, Percutaneous Approach (ICD-10-PCS; CPT 43246; 2023-08-12 11:10)
DX: J44.1 Chronic obstructive pulmonary disease with (acute) exacerbation (principal); G72.81 Critical illness myopathy; R57.9 Shock, unspecified; B44.1 Other pulmonary aspergillosis; J96.21 Acute and chronic respiratory failure with hypoxia; I50.33 Acute on chronic diastolic (congestive) heart failure; G93.41 Metabolic encephalopathy; I82.621 Acute embolism and thrombosis of deep veins of right upper extremity; K68.3 Retroperitoneal hematoma; D68.32 Hemorrhagic disorder due to extrinsic circulating anticoagulants; L89.156 Pressure-induced deep tissue damage of sacral region; E88.810 Metabolic syndrome; I11.0 Hypertensive heart disease with heart failure; J45.901 Unspecified asthma with (acute) exacerbation; K21.9 Gastro-esophageal reflux disease without esophagitis; Z99.81 Dependence on supplemental oxygen; E66.2 Morbid (severe) obesity with alveolar hypoventilation; F11.20 Opioid dependence, uncomplicated; E87.6 Hypokalemia; Z68.39 Body mass index [BMI] 39.0-39.9, adult; Z20.822 Contact with and (suspected) exposure to COVID-19; J96.22 Acute and chronic respiratory failure with hypercapnia; I82.613 Acute embolism and thrombosis of superficial veins of upper extremity, bilateral; I82.622 Acute embolism and thrombosis of deep veins of left upper extremity; E11.65 Type 2 diabetes mellitus with hyperglycemia; N13.30 Unspecified hydronephrosis; T45.515A Adverse effect of anticoagulants, initial encounter; N17.9 Acute kidney failure, unspecified; J04.10 Acute tracheitis without obstruction; I95.9 Hypotension, unspecified; E83.42 Hypomagnesemia; E87.5 Hyperkalemia; J44.0 Chronic obstructive pulmonary disease with (acute) lower respiratory infection; G89.29 Other chronic pain; E78.5 Hyperlipidemia, unspecified; Z87.891 Personal history of nicotine dependence; Z79.4 Long term (current) use of insulin; Z79.52 Long term (current) use of systemic steroids; Z79.84 Long term (current) use of oral hypoglycemic drugs; Z79.899 Other long term (current) drug therapy
CPT/HCPCS: 0241U; 36415; 36573; 36600; 70450; 70551; 70553; 71045; 71250; 74018; 74176; 74177; 80048; 80053; 80202; 80307; 81001; 82040; 82140; 82272; 82803; 82947; 83010; 83605; 83735; 84100; 84478; 84484; 85007; 85014; 85018; 85025; 85027; 85610; 85730; 86704; 86705; 86706; 86850; 86900; 86901; 86923; 87040; 87070; 87077; 87086; 87147; 87205; 87340; 90999; 93005; 93970; 93971; 94002; 94003; 94640; 94660; 94799; 97163; 99285; A9585; C1751; C1758; J0131; J0613; J0696; J1120; J1170; J1205; J1644; J1650; J1940; J2060; J2250; J2251; J2405; J2543; J2704; J2795; J2919; J3010; J3370; J3475; J3480; P9016; P9017; P9047; P9073; Q9967

== ENCOUNTER → 2023-08-02 13:29 | Outpatient (BNV) | payer MEDICAID, SELFPAY | PROVIDERS: Admitting Provider Internal Medicine; Emergency Provider Internal Medicine; Visit Provider Internal Medicine Cardiovascular Disease | DX: R06.02 Shortness of breath (principal) | CPT/HCPCS: 93010 ==

== ENCOUNTER 2023-08-02 21:13 | Outpatient (BNV) | payer MEDICAID, SELFPAY | END 2023-08-21 23:41 | PROVIDERS: Admitting Provider Internal Medicine; Emergency Provider Internal Medicine; PCP Family Medicine; Referring Provider Family Medicine; Visit Provider Internal Medicine Cardiovascular Disease | DX: R07.9 Chest pain, unspecified (principal) | CPT/HCPCS: 93010 ==

== ENCOUNTER 2023-08-02 21:13 | Outpatient (BNV) | payer MEDICAID, SELFPAY | END 2023-09-06 12:49 | PROVIDERS: Admitting Provider Internal Medicine; Emergency Provider Internal Medicine; PCP Family Medicine; Referring Provider Family Medicine; Visit Provider Internal Medicine Cardiovascular Disease | DX: R94.31 Abnormal electrocardiogram [ECG] [EKG] (principal) | CPT/HCPCS: 93010 ==

== ENCOUNTER 2023-08-02 21:13 | Outpatient (BNV) | payer MEDICAID, SELFPAY | END 2023-08-20 09:42 | PROVIDERS: Admitting Provider Internal Medicine; Emergency Provider Internal Medicine; PCP Family Medicine; Referring Provider Family Medicine; Visit Provider Internal Medicine Cardiovascular Disease | DX: R07.9 Chest pain, unspecified (principal) | CPT/HCPCS: 93010 ==

== ENCOUNTER → 2023-08-02 21:13 | Outpatient (BNV) | payer MEDICAID, SELFPAY | PROVIDERS: Admitting Provider Internal Medicine; Emergency Provider Internal Medicine; PCP Family Medicine; Referring Provider Family Medicine; Visit Provider Internal Medicine Hypertension Specialist | DX: N17.9 Acute kidney failure, unspecified (principal) | CPT/HCPCS: 90935; 99232 ==

== ENCOUNTER → 2023-08-02 21:13 | Outpatient (BNV) | payer MEDICAID, SELFPAY | PROVIDERS: Admitting Provider Internal Medicine; Emergency Provider Internal Medicine; PCP Family Medicine; Visit Provider Surgery | DX: K94.23 Gastrostomy malfunction (principal) | CPT/HCPCS: 31600; 43246; 43762; 99231; 99232; 99499 ==

== ENCOUNTER → 2023-08-02 21:13 | Outpatient (BNV) | payer MEDICAID, SELFPAY | PROVIDERS: Admitting Provider Internal Medicine; Emergency Provider Internal Medicine; Visit Provider Hospitalist | DX: J44.9 Chronic obstructive pulmonary disease, unspecified (principal); Z93.0 Tracheostomy status; Z93.1 Gastrostomy status; N17.9 Acute kidney failure, unspecified; F11.20 Opioid dependence, uncomplicated; E11.9 Type 2 diabetes mellitus without complications; I50.30 Unspecified diastolic (congestive) heart failure; G72.81 Critical illness myopathy; E66.2 Morbid (severe) obesity with alveolar hypoventilation | CPT/HCPCS: 31500; 36556; 99223; 99232; 99291 ==

== ENCOUNTER → 2023-08-02 21:13 | Outpatient (BNV) | payer MEDICAID, SELFPAY | PROVIDERS: Admitting Provider Internal Medicine; Emergency Provider Internal Medicine; Visit Provider Internal Medicine | DX: J96.21 Acute and chronic respiratory failure with hypoxia (principal); J96.22 Acute and chronic respiratory failure with hypercapnia; J44.1 Chronic obstructive pulmonary disease with (acute) exacerbation; G47.33 Obstructive sleep apnea (adult) (pediatric) | CPT/HCPCS: 99223; 99232; 99499 ==

== ENCOUNTER → 2023-08-02 21:13 | Outpatient (BNV) | payer MEDICAID, SELFPAY | PROVIDERS: Admitting Provider Internal Medicine; Emergency Provider Internal Medicine; PCP Family Medicine; Referring Provider Family Medicine; Visit Provider Internal Medicine Critical Care Medicine | DX: N17.9 Acute kidney failure, unspecified (principal); B44.9 Aspergillosis, unspecified; Z93.1 Gastrostomy status; G93.40 Encephalopathy, unspecified; J44.1 Chronic obstructive pulmonary disease with (acute) exacerbation; J96.21 Acute and chronic respiratory failure with hypoxia; J96.22 Acute and chronic respiratory failure with hypercapnia | CPT/HCPCS: 99239; 99291; 99499 ==

== ENCOUNTER → 2023-08-02 21:13 | Outpatient (BNV) | payer MEDICAID, SELFPAY | PROVIDERS: Admitting Provider Internal Medicine; Emergency Provider Internal Medicine; PCP Family Medicine; Referring Provider Family Medicine; Visit Provider Internal Medicine | DX: K94.23 Gastrostomy malfunction (principal); Z93.0 Tracheostomy status; J96.21 Acute and chronic respiratory failure with hypoxia; J96.22 Acute and chronic respiratory failure with hypercapnia; J96.11 Chronic respiratory failure with hypoxia; J96.12 Chronic respiratory failure with hypercapnia; B44.9 Aspergillosis, unspecified | CPT/HCPCS: 99222 ==